=== PATIENT | female | born 1940 | race American Indian/Alaskan Native ===

== ENCOUNTER 2021-04-20 14:30 | Inpatient (IN) | payer MEDICARE ==
--- NOTE | 2021-04-20 17:19 | Emergency Department Report ---
HPI - General Chief Complaint: Altered Mental Status Time Seen by Provider: 04/20/21 16:55 - HPI HPI: Room 4 The patient is a 80-year-old female present with a chief complaint of altered mental status. The patient is a resident at [facility] and per EMS at baseline is ambulatory and alert and oriented x4. Patient was found unresponsive by staff. The patient does not have a history of diabetes per the medical record but with EMS the patient's glucose was found to be high. The patient only moans and localizes to sternal rub but does not answer questions. ED Past Medical Hx - Past Medical History Previous Medical History?: Yes Hx GERD: Yes Hx Psychiatric Treatment: Yes (Schitzophrenia, dementia) Additional medical history: Hypothroid, hyperlipidemia - Surgical History Past Surgical History?: No - Family History Family history: no significant - Social History Smoking Status: Unknown if ever smoked ED Review of Systems ROS: Stated complaint: AMS Other details as noted in HPI Comment: Unobtainable due to pts medical conditions (Patient unresponsive) Physical Exam - Physical Exam Vital Signs: Vital Signs 04/20/21 14:31 Pulse Rate 85 Respiratory 19 Rate Blood Pressure 107/35 [Left] O2 Sat by Pulse 94 Oximetry Physical Exam: GENERAL: The patient is well-developed well-nourished female sleeping on stretcher only localizing to tactile stimuli. [] HEENT: Normocephalic. Atraumatic. Pupils 3 mm bilaterally NECK: Supple. Trachea midline CHEST/LUNGS: Clear to auscultation. There is no respiratory distress noted. HEART/CARDIOVASCULAR: Regular. There is no tachycardia. There is no gallop rub or murmur. ABDOMEN: Abdomen is soft, nontender. Patient has normal bowel sounds. There is no abdominal distention. SKIN: There is no rash. There is no edema. There is no diaphoresis. NEURO: The patient is obtunded and only localizes to sternal rub . . ... MUSCULOSKELETAL: There is no tenderness or deformity. There is no limitation range of motion. There is no evidence of acute injury. ED Course Vital Signs 04/20/21 14:31 Pulse Rate 85 Respiratory 19 Rate Blood Pressure 107/35 [Left] O2 Sat by Pulse 94 Oximetry ED Medical Decision Making - Lab Data Result diagrams: 04/20/21 17:10 04/20/21 17:10 Laboratory Tests 1204/20/21 04/20/21 17:10 17:10 17:10 WBC 17.4 H RBC 5.19 H Hgb 14.0 Hct 46.8 H MCV 90 MCH 27 L MCHC 30 RDW 17.2 H Plt Count 140 Seg Neutrophils % Pulp Tester VBG pH Sodium 173 H* Potassium 3.7 Chloride 132.9 H Carbon Dioxide 17 L Anion Gap 27 BUN 120 H Creatinine 4.2 H Estimated GFR 12 BUN/Creatinine Ratio 29 Glucose 762 H* Lactic Acid Calcium 9.1 Magnesium 3.80 H Total Bilirubin 0.60 AST 72 H ALT 63 H Alkaline Phosphatase 148 H Ammonia Total Creatine Kinase 3697 H CK-MB (CK-2) 36.0 H CK-MB (CK-2) Rel Index 0.9 Troponin T 0.021 Total Protein 7.2 Albumin 2.2 L Albumin/Globulin Ratio 0.4 TSH Free T4 Urine Bilirubin Urine RBC (Auto) Plasma/Serum Alcohol 04/20/21 04/20/21 04/20/21 17:10 17:10 17:10 WBC RBC Hgb Hct MCV MCH MCHC RDW Plt Count Seg Neutrophils % VBG pH Sodium Potassium Chloride Carbon Dioxide Anion Gap BUN Creatinine Estimated GFR BUN/Creatinine Ratio Glucose Lactic Acid Calcium Magnesium Total Bilirubin AST ALT Alkaline Phosphatase Ammonia 29.0 Total Creatine Kinase CK-MB (CK-2) CK-MB (CK-2) Rel Index Troponin T Total Protein Albumin Albumin/Globulin Ratio TSH 6.040 H Free T4 0.93 Urine Bilirubin Urine RBC (Auto) Plasma/Serum Alcohol < 0.01 04/20/21 04/20/21 04/20/21 17:10 17:10 Unknown WBC RBC Hgb Hct MCV MCH MCHC RDW Plt Count Seg Neutrophils % VBG pH 7.397 Sodium Potassium Chloride Carbon Dioxide Anion Gap BUN Creatinine Estimated GFR BUN/Creatinine Ratio Glucose Lactic Acid 2.60 H* Calcium Magnesium Total Bilirubin AST ALT Alkaline Phosphatase Ammonia Total Creatine Kinase CK-MB (CK-2) CK-MB (CK-2) Rel Index Troponin T Total Protein Albumin Albumin/Globulin Ratio TSH Free T4 Urine Bilirubin Neg Urine RBC (Auto) 1.0 Plasma/Serum Alcohol - EKG Data -: EKG Interpreted by Me EKG shows normal: sinus rhythm Rate: normal - EKG Data When compared to previous EKG there are: previous EKG unavailable Interpretation: nonspecific ST-T wave tavon (T wave inversions in leads V3, V4) - Radiology Data Radiology results: report reviewed (Chest x-ray, CT head), image reviewed (Chest x-ray, CT head) interpreted by me: Chest x-ray-no definite focal infiltrates, no pneumothorax [address] [address] XRay Report Signed Patient: SHIELA FOUNTAIN MR#: [id number] : 1940 Acct:[id number] Age/Sex: 80 / F ADM Date: 04/20/21 Loc: ED Attending Dr: Ordering Physician: SOHAIL POWERS MD Date of Service: 04/20/21 Procedure(s): XR chest 1V ap Accession Number(s): [id number] cc: SOHAIL POWERS MD Fluoro Time In Minutes: CHEST 1 VIEW 04/20/2021 5:15 PM INDICATION / CLINICAL INFORMATION: Altered mental status. COMPARISON: None available. FINDINGS: SUPPORT DEVICES: None. HEART / MEDIASTINUM: The heart size and pulmonary vasculature are normal. LUNGS / PLEURA: There is increased opacity in the left retrocardiac region with mild indistinctness of the left hemidiaphragm. There are calcified left hilar and AP window lymph nodes. The right lung is clear. No significant pleural effusion. No pneumothorax. ADDITIONAL FINDINGS: No significant additional findings. IMPRESSION: Left lower lobe atelectasis or pneumonia. Signer Name: Harjinder Brooks MD Signed: 04/20/2021 5:45 PM Workstation Name: [id number] Transcribed By: RT Dictated By: Harjinder Brooks MD Electronically Authenticated By: Harjinder Brooks MD Signed Date/Time: 04/20/211744 DD/ 43 TD/TT: Print Cancel [address] [address] Cat Scan Report Signed Patient: SHIELA FOUNTAIN MR#: [id number] : 1940 Acct:[id number] Age/Sex: 80 / F ADM Date: 04/20/21 Loc: ED Attending Dr: Ordering Physician: SOHAIL POWERS MD Date of Service: 04/20/21 Procedure(s): CT head/brain wo con Accession Number(s): [id number] cc: SOHAIL POWERS MD NONENHANCED CT SCAN OF THE HEAD: INDICATION / CLINICAL INFORMATION: 80 years Female; Altered mental status. TECHNIQUE: Routine CT head without contrast. All CT scans at this location are performed using CT dose reduction for ALARA by means of aut omated exposure control. COMPARISON: None. FINDINGS: BRAIN / INTRACRANIAL CONTENTS: Lateral ventricles and third ventricle are disproportionately large compared to high convexity cortical sulci. Perisylvian atrophy is seen more on the right side. Cortical sulci in the vertex are effaced. Callosal triangle at the level of posterior commissures is 60 degrees. Periventricular low- attenuation areas seen. This could be due to chronic small vessel disease or transependymal. CSF. CT findings suggest the possibility of normal pressure hydrocephalus. No acute hemorrhage, mass effect, midline shift, or acute, large territorial infarct. No chronic infarct or focal atrophy. CRANIOCERVICAL JUNCTION: No significant abnormality. ORBITS: No significant abnormality of visualized orbits. SINUSES / MASTOIDS: No significant abnormality of the visualized paranasal sinuses or mastoid air cells. ADDITIONAL FINDINGS: None. IMPRESSION: Lateral ventricles and third ventricle are dilated; CT findings raises the possibility of normal pressure hydrocephalus Signer Name: Blayne Mccullough MD Signed: 04/20/2021 5:53 PM Workstation Name: [id number] Transcribed By: BS Dictated By: Blayne Chew MD Electronically Authenticated By: Blayne Chew MD Signed Date/Time: 04/20/211752 DD/ 41 TD/TT: Print Cancel - Differential Diagnosis Sepsis, ICH, pneumonia, UTI, dehydration, hypothyroidism Critical care attestation.: If time is entered above; I have spent that time in minutes in the direct care of this critically ill patient, excluding procedure time. ED Disposition Clinical Impression: Altered mental state, Hypernatremia, Dehydration, Rhabdomyolysis, Acute renal failure Disposition: ADMITTED INPATIENT Is pt being admited?: Yes Does the pt Need Aspirin: No Condition: Stable Referrals: PRIMARY CARE, [Primary Care Provider] - 3-5 Days Time of Disposition: 19:15 (Hospitalist called (Dr. Brenner))
[2021-04-20] MEDS ORDERED: SODIUM CHLORIDE 0.9% 1000 ML 1,000 ML IV ONE (17:47)
[2021-04-20 17:49] LABS: Albumin 2.2 g/dL (3.9-5); Calcium 9.1 mg/dL (8.4-10.2)
--- NOTE | 2021-04-20 17:49 | XRay Report ---
CHEST 1 VIEW 04/20/2021 5:15 PM INDICATION / CLINICAL INFORMATION: Altered mental status. COMPARISON: None available. FINDINGS: SUPPORT DEVICES: None. HEART / MEDIASTINUM: The heart size and pulmonary vasculature are normal. LUNGS / PLEURA: There is increased opacity in the left retrocardiac region with mild indistinctness o f the left hemidiaphragm. There are calcified left hilar and AP window lymph nodes. The right lung is clear. No significant pleural effusion. No pneumothorax. ADDITIONAL FINDINGS: No significant additional findings. IMPRESSION: Left lower lobe atelectasis or pneumonia. Signer Name: Harjinder Brooks MD Signed: 04/20/2021 5:45 PM Workstation Name: [id number]
--- NOTE | 2021-04-20 17:58 | Cat Scan Report ---
NONENHANCED CT SCAN OF THE HEAD: INDICATION / CLINICAL INFORMATION: 80 years Female; Altered mental status. TECHNIQUE: Routine CT head without contrast. All CT scans at this location are performed using CT dos e reduction for ALARA by means of automated exposure control. COMPARISON: None. FINDINGS: BRAIN / INTRACRANIAL CONTENTS: Lateral ventricles and third ventricle are disproportionately large compared to high convexity cortic al sulci. Perisylvian atrophy is seen more on the right side. Cortical sulci in the vertex are efface d. Callosal triangle at the level of posterior commissures is 60 degrees. Periventricular low-attenuation areas seen. This could be due to chronic small vessel disease or harper sependymal. CSF. CT findings suggest the possibility of normal pressure hydrocephalus. No acute hemorrhage, mass effect, midline shift, or acute, large territorial infarct. No chronic infa rct or focal atrophy. CRANIOCERVICAL JUNCTION: No significant abnormality. ORBITS: No significant abnormality of visualized orbits. SINUSES / MASTOIDS: No significant abnormality of the visualized paranasal sinuses or mastoid air hermila ls. ADDITIONAL FINDINGS: None. IMPRESSION: Lateral ventricles and third ventricle are dilated; CT findings raises the possibility of normal pres sure hydrocephalus Signer Name: Blayne Mccullough MD Signed: 04/20/2021 5:53 PM Workstation Name: [id number]
[2021-04-20 17:59] LABS: Free T4 (Free Thyroxine) 0.93 ng/dL (0.76-1.46)
[2021-04-20 18:00] LABS: Mean Corpuscular HGB Conc 30 % (30-34); Mean Corpuscular Volume 90 fl (79-97); Platelet Count 140 K/mm3 (140-440); Red Blood Count 5.19 M/mm3 (3.65-5.03); Red Cell Distribution Width 17.2 % (13.2-15.2)
[2021-04-20] MEDS ORDERED: DEXTROSE 5% IN WATER 1,000 ML IV ONE (18:01)
[2021-04-20 18:03] LABS: Hematocrit 46.8 % (30.3-42.9)
[2021-04-20 18:11] LABS: Bilirubin,Urine NEG (Negative); Blood,Urine MOD (Negative); Color,Urine Yellow (Yellow); Mucus,Urine FEW /HPF; Protein,Urine <15 mg/dL mg/dL (Negative); Urobilinogen,Urine < 2.0 mg/dL (<2.0)
[2021-04-20] MEDS ORDERED: INSULIN REGULAR, HUMAN 100 UNITS/1 ML IV ONE (19:14)
[2021-04-20 21:09] LABS: Total Cells Counted 100
[2021-04-20 21:12] LABS: Burr Cells Rare; Platelet Estimate Consistent w Auto; Target Cells Rare
[2021-04-20] MEDS ORDERED: ONDANSETRON 4 MG/2 ML INJ IV PRN (21:31)
[2021-04-20] MEDS ORDERED: METOCLOPRAMIDE 10 MG/2 ML INJ IV PRN (21:31)
[2021-04-20] MEDS ORDERED: DEXTROSE 50% IN WATER (25GM) 50 ML SYRINGE IV PRN (21:46)
[2021-04-20] MEDS ORDERED: SODIUM CHLORIDE 0.45% 500 ML IV SCH (22:00)
[2021-04-20] MEDS ORDERED: SODIUM CHLORIDE 0.45% 1000 ML 1,000 ML IV SCH (22:00)
[2021-04-20] MEDS: INSULIN REGULAR, HUMAN 100 UNITS in SODIUM CHLORIDE 0.9% 99 ML IV SCH (22:35)
[2021-04-20 23:55] LABS: Calcium 8.3 mg/dL (8.4-10.2)
[2021-04-21] MEDS: HEPARIN 5,000 UNIT/1 ML VIAL SUB-Q SCH ×3 (00:34→23:19)
[2021-04-21] MEDS ORDERED: LACTATED RINGERS 1,000 ML IV SCH ×2 (00:45→08:15)
[2021-04-21 00:59] LABS: Calcium 8.6 mg/dL (8.4-10.2)
[2021-04-21 02:30] LABS: Calcium 8.7 mg/dL (8.4-10.2)
[2021-04-21] MEDS: POTASSIUM CHLORIDE 10 MEQ 10 MEQ/100 ML BAG IV SCH ×7 (02:32→16:22)
[2021-04-21] MEDS ORDERED: INSULIN GLARGINE 100 UNITS/ML SUB-Q ONE (02:45)
[2021-04-21] MEDS ORDERED: FUROSEMIDE 40 MG/4 ML INJ IV ONE (02:56)
[2021-04-21 03:29] LABS: ABG Base Excess -2.9 mmol/L (-2.0-3.0); ABG HCO3 22.1 mmol/L (20.0-26.0); ABG Methemoglobin 0.7 % (0.0-1.5); ABG Oxygen Saturation 84.5 % (95.0-99.0); ABG PCO2 39.3 mm Hg; ABG PH 7.368 pH Units (7.350-7.450); ABG PO2 52.3 mm Hg (80.0-90.0)
[2021-04-21 05:18] LABS: Mean Corpuscular HGB Conc 31 % (30-34); Mean Corpuscular Volume 87 fl (79-97); Platelet Count 114 K/mm3 (140-440); Red Blood Count 4.83 M/mm3 (3.65-5.03); Red Cell Distribution Width 16.8 % (13.2-15.2)
[2021-04-21 05:22] LABS: Hematocrit 42.1 % (30.3-42.9)
[2021-04-21 05:25] LABS: Albumin 2.5 g/dL (3.9-5)
[2021-04-21 06:32] LABS: Total Cells Counted 100
[2021-04-21 06:33] LABS: Burr Cells Few; Platelet Estimate Consistent w Auto
--- NOTE | 2021-04-21 07:38 | History and Physical Report ---
History of Present Illness Date of examination: 04/20/21 Date of admission: 04/20/21 19:17 Chief complaint: Patient with [place] for 1 day Decreased responsiveness for 1 day History of present illness: 40-year-old -[place] female with history of GERD, hypothyroidism hyper, hyperlipidemia and schizophrenia and dementia, resident of [facility] e is apparently ambulatory alert and oriented x4. Last night. Patient was found unresponsive by the staff and was sent to the emergency room for evaluation. As per EMS blood glucose levels were high. Patient response to sternal rub but does not wake up or answer questions. Moans and groans with sternal rub. No fever or chills. Vaccination status not known. - Past Medical History --Previous Medical History?: Yes --GERD: Yes --Psychiatric Treatment: Yes (Schitzophrenia, dementia) --Additional medical history: Hypothroid, hyperlipidemia - Surgical History Past Surgical History?: No - Family History Family history: no significant - Social History Smoking Status: Unknown if ever smoked Review of Systems ROS: Stated complaint: AMS Other details as noted in HPI Comment: Unobtainable due to pts medical conditions (Patient unresponsive) Medications and Allergies Allergies Allergy/AdvReac Type Severity Reaction Status Date / Time No Known Allergies Allergy Unverified 04/20/21 14:35 Active Meds: Active Medications Acetaminophen (Acetaminophen 325 Mg Tab) 650 mg PO Q4H PRN PRN Reason: Pain MILD(1-3)/Fever >100.5/TURCIOS Dextrose (Dextrose 50% In Water (25gm) 50 Ml Syringe) 0 ml IV Q30MIN PRN; Protocol PRN Reason: Hypoglycemia Heparin Sodium (Porcine) (Heparin 5,000 Unit/1 Ml Vial) 5,000 unit SUB-Q Q12HR AZIZA Last Admin: 04/21/21 00:34 Dose: 5,000 unit Documented by: Insulin Human Regular 100 (units/ Sodium Chloride) 100 mls @ 1 mls/hr IV TITR AZIZA; Protocol Last Titration: 04/21/21 06:50 Dose: Infused Documented by: Lactated Ringer's (Lactated Ringers) 1,000 mls @ 175 mls/hr IV DIRECT AZIZA Last Admin: 04/21/21 01:25 Dose: 175 mls/hr Documented by: Dextrose (D5w) 1,000 mls @ 75 mls/hr IV DIRECT AZIZA Metoclopramide HCl (Metoclopramide 10 Mg/2 Ml Inj) 5 mg IV Q6H PRN PRN Reason: Nausea And Vomiting Morphine Sulfate (Morphine 2 Mg/1 Ml Inj) 2 mg IV Q4H PRN PRN Reason: Pain, Moderate (4-6) Ondansetron HCl (Ondansetron 4 Mg/2 Ml Inj) 4 mg IV Q8H PRN PRN Reason: Nausea And Vomiting Sodium Chloride (Sodium Chloride 0.9% 10 Ml Flush Syringe) 10 ml IV BID AZIZA Last Admin: 04/20/21 22:46 Dose: 10 ml Documented by: Sodium Chloride (Sodium Chloride 0.9% 10 Ml Flush Syringe) 10 ml IV PRN PRN PRN Reason: LINE FLUSH Exam - Physical Exam Narrative exam: Lying in bed unresponsive - Constitutional Vitals: Temp Pulse Resp BP Pulse Ox 91.5 F L 71 25 H 103/57 94 04/21/21 06:20 04/21/21 07:15 04/21/21 07:15 04/21/21 07:15 04/21/21 07:15 General appearance: Present: no acute distress, other (Lying in bed unresponsive) - EENT Eyes: Present: PERRL ENT: hearing intact, other (Tongue very dry.) - Neck Neck: Present: supple, normal ROM - Respiratory Respiratory effort: normal Respiratory: bilateral: CTA - Cardiovascular Heart rate: 78 Rhythm: regular Heart Sounds: Present: S1 & S2. Absent: rub, click - Extremities Extremities: no ischemia, pulses intact, pulses symmetrical, No edema Peripheral Pulses: within normal limits - Abdominal General gastrointestinal: Present: soft, non-tender, non-distended, normal bowel sounds Female genitourinary: Present: normal - Integumentary Integumentary: Present: clear, warm, dry - Musculoskeletal Musculoskeletal: generalized weakness - Psychiatric Psychiatric: other (Decreased responsiveness) - Neurologic Neurologic: moves all extremities, other (Decreased responsiveness) - Allied Health Allied health notes reviewed: nursing, case management HEART Score - HEART Score Troponin: Troponin T 0.021 ng/mL (0.00-0.029) 04/20/21 17:10 Results - Labs CBC & Chem 7: 04/21/21 03:41 04/21/21 03:41 Labs: Laboratory Last Values WBC 14.1 K/mm3 (4.5-11.0) H 04/21/21 03:41 RBC 4.83 M/mm3 (3.65-5.03) 04/21/21 03:41 Hgb 13.0 gm/dl (10.1-14.3) 04/21/21 03:41 Hct 42.1 % (30.3-42.9) 04/21/21 03:41 MCV 87 fl (79-97) 04/21/21 03:41 MCH 27 pg (28-32) L 04/21/21 03:41 MCHC 31 % (30-34) 04/21/21 03:41 RDW 16.8 % (13.2-15.2) H 04/21/21 03:41 Plt Count 114 K/mm3 (140-440) L 04/21/21 03:41 Add Manual Diff Complete 04/21/21 03:41 Total Counted 100 04/21/21 03:41 Seg Neutrophils % Abatement Worker 04/21/21 03:41 Seg Neuts % (Manual) 97.0 % (40.0-70.0) H 04/21/21 03:41 Lymphocytes % (Manual) 3.0 % (13.4-35.0) L 04/21/21 03:41 Nucleated RBC % 1.0 % (0.0-0.9) H 04/21/21 03:41 Seg Neutrophils # Man 13.7 K/mm3 (1.8-7.7) H 04/21/21 03:41 Band Neutrophils # 0.0 K/mm3 04/21/21 03:41 Lymphocytes # (Manual) 0.4 K/mm3 (1.2-5.4) L 04/21/21 03:41 Abs React Lymphs (Man) 0.0 K/mm3 04/21/21 03:41 Monocytes # (Manual) 0.0 K/mm3 (0.0-0.8) 04/21/21 03:41 Eosinophils # (Manual) 0.0 K/mm3 (0.0-0.4) 04/21/21 03:41 Basophils # (Manual) 0.0 K/mm3 (0.0-0.1) 04/21/21 03:41 Metamyelocytes # 0.0 K/mm3 04/21/21 03:41 Myelocytes # 0.0 K/mm3 04/21/21 03:41 Promyelocytes # 0.0 K/mm3 04/21/21 03:41 Blast Cells # 0.0 K/mm3 04/21/21 03:41 WBC Morphology Not Reportable 04/21/21 03:41 Hypersegmented Neuts Not Reportable 04/21/21 03:41 Hyposegmented Neuts Not Reportable 04/21/21 03:41 Hypogranular Neuts Not Reportable 04/21/21 03:41 Smudge Cells Not Reportable 04/21/21 03:41 Toxic Granulation Not Reportable 04/21/21 03:41 Toxic Vacuolation Not Reportable 04/21/21 03:41 Dohle Bodies Not Reportable 04/21/21 03:41 Pelger-Huet Anomaly Not Reportable 04/21/21 03:41 Moni Rods Not Reportable 04/21/21 03:41 Platelet Estimate Consistent w auto 04/21/21 03:41 Clumped Platelets Not Reportable 04/21/21 03:41 Plt Clumps, EDTA Not Reportable 04/21/21 03:41 Large Platelets Not Reportable 04/21/21 03:41 Giant Platelets Not Reportable 04/21/21 03:41 Platelet Satelliting Not Reportable 04/21/21 03:41 Plt Morphology Comment Not Reportable 04/21/21 03:41 RBC Morphology Not Reportable 04/21/21 03:41 Dimorphic RBCs Not Reportable 04/21/21 03:41 Polychromasia Not Reportable 04/21/21 03:41 Hypochromasia Not Reportable 04/21/21 03:41 Poikilocytosis Not Reportable 04/21/21 03:41 Anisocytosis Not Reportable 04/21/21 03:41 Microcytosis Not Reportable 04/21/21 03:41 Macrocytosis Not Reportable 04/21/21 03:41 Spherocytes Not Reportable 04/21/21 03:41 Pappenheimer Bodies Not Reportable 04/21/21 03:41 Sickle Cells Not Reportable 04/21/21 03:41 Target Cells Not Reportable 04/21/21 03:41 Tear Drop Cells Not Reportable 04/21/21 03:41 Ovalocytes Not Reportable 04/21/21 03:41 Helmet Cells Not Reportable 04/21/21 03:41 Parkinson-Slater-[place] Bodies Not Reportable 04/21/21 03:41 [place] Rings Not Reportable 04/21/21 03:41 [place] Cells Few 04/21/21 03:41 Bite Cells Not Reportable 04/21/21 03:41 Crenated Cell Not Reportable 04/21/21 03:41 Elliptocytes Not Reportable 04/21/21 03:41 Acanthocytes (Spur) Not Reportable 04/21/21 03:41 Rouleaux Not Reportable 04/21/21 03:41 Hemoglobin C Crystals Not Reportable 04/21/21 03:41 Schistocytes Not Reportable 04/21/21 03:41 Malaria parasites Not Reportable 04/21/21 03:41 Herrera Bodies Not Reportable 04/21/21 03:41 Hem Pathologist Commnt No 04/21/21 03:41 ABG pH 7.368 pH Units (7.350-7.450) 04/21/21 03:20 ABG pCO2 39.3 mm Hg 04/21/21 03:20 ABG pO2 52.3 mm Hg (80.0-90.0) L 04/21/21 03:20 ABG HCO3 22.1 mmol/L (20.0-26.0) 04/21/21 03:20 ABG O2 Saturation 84.5 % (95.0-99.0) L 04/21/21 03:20 ABG O2 Content 15.0 (0.0-44) 04/21/21 03:20 ABG Base Excess -2.9 mmol/L (-2.0-3.0) L 04/21/21 03:20 ABG Hemoglobin 12.9 gm/dl (12.0-16.0) 04/21/21 03:20 ABG Carboxyhemoglobin 1.3 % (0.0-5.0) 04/21/21 03:20 ABG Methemoglobin 0.7 % (0.0-1.5) 04/21/21 03:20 VBG pH 7.397 (7.320-7.420) 04/20/21 17:10 Oxyhemoglobin 82.9 % (95.0-99.0) L 04/21/21 03:20 FiO2 100 % 04/21/21 03:20 Sodium 179 mmol/L (137-145) H* 04/21/21 03:41 Potassium 2.9 mmol/L (3.6-5.0) L* 04/21/21 03:41 Chloride 138.2 mmol/L (98-107) H 04/21/21 03:41 Carbon Dioxide 20 mmol/L (22-30) L 04/21/21 03:41 Anion Gap 21 mmol/L 04/21/21 03:41 BUN 111 mg/dL (7-17) H 04/21/21 03:41 Creatinine 3.7 mg/dL (0.6-1.2) H 04/21/21 03:41 Estimated GFR 14 ml/min 04/21/21 03:41 BUN/Creatinine Ratio 30 % 04/21/21 03:41 Glucose 465 mg/dL (65-100) H 04/21/21 03:41 POC Glucose 260 mg/dL (70-105) H 04/21/21 06:47 Lactic Acid 1.90 mmol/L (0.7-2.0) 04/20/21 19:56 Calcium 9.0 mg/dL (8.4-10.2) 04/21/21 03:41 Phosphorus 3.90 mg/dL (2.5-4.5) 04/20/21 22:58 Magnesium 3.50 mg/dL (1.7-2.3) H 04/20/21 22:58 Total Bilirubin 0.40 mg/dL (0.1-1.2) 04/21/21 03:41 AST 73 units/L (5-40) H 04/21/21 03:41 ALT 61 units/L (7-56) H 04/21/21 03:41 Alkaline Phosphatase 144 units/L (35-129) H 04/21/21 03:41 Ammonia 29.0 umol/L (25-60) 04/20/21 17:10 Total Creatine Kinase 3697 units/L (30-135) H 04/20/21 17:10 CK-MB (CK-2) 36.0 ng/mL (0.0-4.0) H 04/20/21 17:10 CK-MB (CK-2) Rel Index 0.9 (0-4) 04/20/21 17:10 Troponin T 0.021 ng/mL (0.00-0.029) 04/20/21 17:10 Total Protein 6.3 g/dL (6.3-8.2) 04/21/21 03:41 Albumin 2.5 g/dL (3.9-5) L 04/21/21 03:41 Albumin/Globulin Ratio 0.7 % 04/21/21 03:41 TSH 6.040 mlU/mL (0.270-4.200) H 04/20/21 17:10 Free T4 0.93 ng/dL (0.76-1.46) 04/20/21 17:10 Urine Color Yellow (Yellow) 04/20/21 Unknown Urine Turbidity Slightly-cloudy (Clear) 04/20/21 Unknown Urine pH 5.0 (5.0-7.0) 04/20/21 Unknown Ur Specific [place] 1.016 (1.003-1.030) 04/20/21 Unknown Urine Protein <15 mg/dl mg/dL (Negative) 04/20/21 Unknown Urine Glucose (UA) >=500 mg/dL (Negative) 04/20/21 Unknown Urine Ketones Tr mg/dL (Negative) 04/20/21 Unknown Urine Blood Mod (Negative) 04/20/21 Unknown Urine Nitrite Neg (Negative) 04/20/21 Unknown Urine Bilirubin Neg (Negative) 04/20/21 Unknown Urine Urobilinogen < 2.0 mg/dL (<2.0) 04/20/21 Unknown Ur Leukocyte Esterase Neg (Negative) 04/20/21 Unknown Urine WBC (Auto) 3.0 /HPF (0.0-6.0) 04/20/21 Unknown Urine RBC (Auto) 1.0 /HPF (0.0-6.0) 04/20/21 Unknown Urine Mucus Few /HPF 04/20/21 Unknown Plasma/Serum Alcohol < 0.01 % (0-0.07) 04/20/21 17:10 Short CBC 04/20/21 04/21/21 Range/Units 17:10 03:41 WBC 17.4 H 14.1 H (4.5-11.0) K/mm3 Hgb 14.0 13.0 (10.1-14.3) gm/dl Hct 46.8 H 42.1 (30.3-42.9) % Plt Count 140 114 L (140-440) K/mm3 BMP 04/20/21 04/20/21 04/21/21 17:10 22:58 00:22 Sodium 173 H* 172 H* 176 H* Potassium 3.7 3.2 L 2.9 L* Chloride 132.9 H 134.2 H 139.9 H Carbon Dioxide 17 L 17 L 17 L BUN 120 H 112 H 113 H Creatinine 4.2 H 3.8 H 3.9 H Glucose 762 H* 803 H* 729 H* Calcium 9.1 8.3 L 8.6 04/21/21 04/21/21 02:01 03:41 Sodium 175 H* 179 H* Potassium 3.0 L 2.9 L* Chloride 136.2 H 138.2 H Carbon Dioxide 19 L 20 L BUN 112 H 111 H Creatinine 3.6 H 3.7 H Glucose 582 H* 465 H Calcium 8.7 9.0 Cardiac Enzymes 04/20/21 Range/Units 17:10 Total Creatine Kinase 3697 H (30-135) units/L CK-MB (CK-2) 36.0 H (0.0-4.0) ng/mL Troponin T 0.021 (0.00-0.029) ng/mL Liver Function 04/20/21 04/21/21 Range/Units 17:10 03:41 Total Bilirubin 0.60 0.40 (0.1-1.2) mg/dL AST 72 H 73 H (5-40) units/L ALT 63 H 61 H (7-56) units/L Alkaline Phosphatase 148 H 144 H (35-129) units/L Albumin 2.2 L 2.5 L (3.9-5) g/dL Urine 04/20/21 Range/Units Unknown Urine Color Yellow (Yellow) Urine pH 5.0 (5.0-7.0) Ur Specific [place] 1.016 (1.003-1.030) Urine Protein <15 mg/dl (Negative) mg/dL Urine Glucose (UA) >=500 (Negative) mg/dL Assessment and Plan Assessment and plan: Critical care statement The high probability OF a clinically significant sudden or life-threatening deterioration of the cardiorespiratory system and endocrine system required my full and direct attention, intervention and postoperative management. The aggr egate medical care time was 40 minutes. The time is in addition to time spent performing reported procedures but includes the followin: Data review and interpretation 2: Patient assessment and monitoring of vital signs 3: Documentation 4:: Medication orders and management Advance Directives: Yes (Full code) VTE prophylaxis?: Chemical Plan of care discussed with patient/family: Yes - Patient Problems (1) Acute metabolic encephalopathy Current Visit: Yes Status: Acute Plan to address problem: Secondary to severe hyperglycemia and electrolyte derangements (2) Diabetic hyperosmolar non-ketotic state Current Visit: Yes Status: Acute Plan to address problem: IV insulin drip IV half-normal saline Monitor electrolytes closely Patient does not have history of diabetes Patient blood glucose levels were around 762 Treat as hyperosmolar nonketotic state and diabetes with coma (3) SYED (acute kidney injury) Current Visit: Yes Status: Acute Plan to address problem: Secondary to ATN and volume depletion IV fluids for now Nephrology consulted (4) Dehydration Current Visit: Yes Status: Acute Plan to address problem: Patient is fluid depleted IV half-normal saline for now (5) Hypernatremia Current Visit: Yes Status: Acute Plan to address problem: Severe hypernatremia Half-normal saline for now next monitor blood glucose levels stabilized D5W to bring the sodium down We will defer to nephrology also (6) Rhabdomyolysis Current Visit: Yes Status: Acute Qualifiers: Rhabdomyolysis type: non-traumatic Qualified Code(s): M62.82 - Rhabdomyolysis Plan to address problem: IV fluids and monitor CK levels (7) Hypernatremia Current Visit: Yes Status: Acute (8) GERD (gastroesophageal reflux disease) Current Visit: Yes Status: Chronic Qualifiers: Esophagitis presence: without esophagitis Qualified Code(s): K21.9 - Gastro-esophageal reflux disease without esophagitis Plan to address problem: On IV famotidine (9) Metabolic acidosis Current Visit: Yes Status: Acute Plan to address problem: Treat hypoglycemia and electrolyte abnormalities (10) Leukocytosis Current Visit: Yes Status: Acute Plan to address problem: Empiric Rocephin for now (11) DVT prophylaxis Current Visit: Yes Status: Acute Plan to address problem: GI prophylaxis
--- NOTE | 2021-04-21 08:06 | Consultation ---
History of Present Illness - Reason for Consult Consult date: 04/21/21 acute renal failure - History of Present Illness 80-year-old -[place] female with history of GERD, hypothyroidism hyper, hyperlipidemia and schizophrenia and dementia, resident of [facility] was admitted after she was was found unresponsive by the staff. she was found to have DKA and started on insulin drip, she was also found to have severe hypernatremia with SYED and renal consult was requested Past History Past Medical History: other (Dementia, GERD) Medications and Allergies Allergies Allergy/AdvReac Type Severity Reaction Status Date / Time No Known Allergies Allergy Unverified 04/20/21 14:35 Active Meds: Active Medications Acetaminophen (Acetaminophen 325 Mg Tab) 650 mg PO Q4H PRN PRN Reason: Pain MILD(1-3)/Fever >100.5/TURCIOS Dextrose (Dextrose 50% In Water (25gm) 50 Ml Syringe) 0 ml IV Q30MIN PRN; Protocol PRN Reason: Hypoglycemia Heparin Sodium (Porcine) (Heparin 5,000 Unit/1 Ml Vial) 5,000 unit SUB-Q Q12HR AZIZA Last Admin: 04/21/21 00:34 Dose: 5,000 unit Documented by: Insulin Human Regular 100 (units/ Sodium Chloride) 100 mls @ 1 mls/hr IV TITR AZIZA; Protocol Last Titration: 04/21/21 06:50 Dose: Infused Documented by: Dextrose (D5w) 1,000 mls @ 125 mls/hr IV DIRECT AZIZA Potassium Chloride (Kcl 10meq/100ml) 10 meq in 100 mls @ 100 mls/hr IV Q1H AZIZA Stop: 04/21/21 12:59 Ceftriaxone Sodium (Rocephin/Ns 1 Gm/50 Ml) 1 gm in 50 mls @ 100 mls/hr IV Q24H AZIZA; Protocol Metoclopramide HCl (Metoclopramide 10 Mg/2 Ml Inj) 5 mg IV Q6H PRN PRN Reason: Nausea And Vomiting Morphine Sulfate (Morphine 2 Mg/1 Ml Inj) 2 mg IV Q4H PRN PRN Reason: Pain, Moderate (4-6) Ondansetron HCl (Ondansetron 4 Mg/2 Ml Inj) 4 mg IV Q8H PRN PRN Reason: Nausea And Vomiting Sodium Chloride (Sodium Chloride 0.9% 10 Ml Flush Syringe) 10 ml IV BID AZIZA Last Admin: 04/20/21 22:46 Dose: 10 ml Documented by: Sodium Chloride (Sodium Chloride 0.9% 10 Ml Flush Syringe) 10 ml IV PRN PRN PRN Reason: LINE FLUSH Review of Systems ROS unobtainable: due to mental status Exam - Vital Signs Vital signs: Vital Signs Pulse Resp BP Pulse Ox 85 19 107/35 94 04/20/21 14:31 04/20/21 14:31 04/20/21 14:31 04/20/21 14:31 - General Appearance General appearance: cachectic EENT: mucous membranes dry Neck: Present: neck supple Respiratory: Decreased Breath Sounds Heart: tachycardia Gastrointestinal: Present: normoactive bowel sounds. Absent: tenderness, distended, masses Integumentary: no rash, warm and dry Neurologic: other (does not follow commands) Musculoskeletal: Present: other (no edema in BLE) Results - Lab Results 04/21/21 03:41 04/21/21 03:41 Most recent lab results ABG pH 7.368 pH Units (7.350-7.450) 04/21/21 03:20 ABG pCO2 39.3 mm Hg 04/21/21 03:20 ABG pO2 52.3 mm Hg (80.0-90.0) L 04/21/21 03:20 ABG HCO3 22.1 mmol/L (20.0-26.0) 04/21/21 03:20 ABG O2 Saturation 84.5 % (95.0-99.0) L 04/21/21 03:20 Calcium 9.0 mg/dL (8.4-10.2) 04/21/21 03:41 Phosphorus 3.90 mg/dL (2.5-4.5) 04/20/21 22:58 Magnesium 3.50 mg/dL (1.7-2.3) H 04/20/21 22:58 Assessment and Plan (1) Acute metabolic encephalopathy (2) Diabetic hyperosmolar non-ketotic state 3) SYED (acute kidney injury) (4) Dehydration (5) Hypernatremia (6) Rhabdomyolysis (7) Hypernatremia 8) GERD (gastroesophageal reflux disease) (9) Metabolic acidosis (10) Leukocytosis No baseline Cr is available, kidney function is improving with IVF, for now due to severe hypernatremia, will increase D5W to 125 cc/h and give isotonic fluid as boluses, LR 1000 cc bolus ordered will check Na every 8 hours, avoid correction more than 10 mmol/l in 24 hoursNo indication for RUBBER ENGRAVER will check urine lytes and protein will check urine osm will cont to monitor CK renally dose meds Strict I&O daily weights Logan Zambrano MD [phone]
[2021-04-21] MEDS: INSULIN REGULAR, HUMAN 100 UNITS in SODIUM CHLORIDE 0.9% 99 ML IV SCH (09:15)
--- NOTE | 2021-04-21 09:39 | Electrocardiograph Report ---
[facility] Test Date: 2021-04-20 Test Time: 19:10:30 Pat Name: SHIELA FOUNTAIN Department: Room: A257 1 Gender: F Mirror Painter: BRENDEN : 1940 Requested By: SOHAIL POWERS Order Number: [id number] Reading MD: Rodolfo Cox Measurements Intervals [place] Rate: 82 P: 75 FL: 110 QRS: 65 QRSD: 58 T: 231 QT: 578 QTc: 676 Interpretive Statements Sinus rhythm Atrial premature complex Low voltage, precordial leads Nonspecific T abnormalities, diffuse leads Prolonged QT interval No previous ECG available for comparison Electronically Signed On 04-21-2021 9:39:06 EST by Rodolfo Cox
[2021-04-21] MEDS ORDERED: SODIUM CHLORIDE 0.9% 500 ML 500 ML ONE (10:51)
[2021-04-21] MEDS: cefTRIAXone/NS 1 GM/50 ML 1 GM/50 ML BAG IV SCH (10:55)
[2021-04-21] MEDS: DEXTROSE 5% IN WATER 1,000 ML IV SCH ×2 (10:55→18:24)
[2021-04-21] MEDS ORDERED: LACTATED RINGERS 1,000 ML ONE (11:38)
[2021-04-21 13:02] LABS: Creatinine,Urine 44.3 mg/dL (0.1-20.0)
--- NOTE | 2021-04-21 13:12 | Consultation ---
History of Present Illness - Reason for Consult Consult date: 04/21/21 - History of Present Illness 80 y/o female presents from [facility] with severe electrolyte imbalance, renal failure, hypoxemia and altered mental state. 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 Not sure if neurology or neurosurgery was consulted. Patient is awake but only moans. No able to speak or communicate at this time. Hypothermic as well. Retaining urine. Renal has seen and left recs. We placed foely. Checking repeat ABG and CXR. Past History Past Medical History: other (Dementia, GERD) Past Surgical History: Other (unable to obtain.) Social history: other (unable to obtain) Family history: other (unable to obtain) Medications and Allergies Allergies Allergy/AdvReac Type Severity Reaction Status Date / Time No Known Allergies Allergy Unverified 04/20/21 14:35 Active Meds: Active Medications Acetaminophen (Acetaminophen 325 Mg Tab) 650 mg PO Q4H PRN PRN Reason: Pain MILD(1-3)/Fever >100.5/TURCIOS Dextrose (Dextrose 50% In Water (25gm) 50 Ml Syringe) 0 ml IV Q30MIN PRN; P rotocol PRN Reason: Hypoglycemia Last Admin: 04/21/21 11:15 Dose: 15 ml Documented by: Heparin Sodium (Porcine) (Heparin 5,000 Unit/1 Ml Vial) 5,000 unit SUB-Q Q12HR AZIZA Last Admin: 04/21/21 10:55 Dose: 5,000 unit Documented by: Insulin Human Regular 100 (units/ Sodium Chloride) 100 mls @ 1 mls/hr IV TITR AZIZA; Protocol Last Titration: 04/21/21 06:50 Dose: Infused Documented by: Dextrose (D5w) 1,000 mls @ 125 mls/hr IV DIRECT AZIZA Last Admin: 04/21/21 10:55 Dose: 125 mls/hr Documented by: Ceftriaxone Sodium (Rocephin/Ns 1 Gm/50 Ml) 1 gm in 50 mls @ 100 mls/hr IV Q24H AZIZA; Protocol Last Admin: 04/21/21 10:55 Dose: 100 mls/hr Documented by: Metoclopramide HCl (Metoclopramide 10 Mg/2 Ml Inj) 5 mg IV Q6H PRN PRN Reason: Nausea And Vomiting Morphine Sulfate (Morphine 2 Mg/1 Ml Inj) 2 mg IV Q4H PRN PRN Reason: Pain, Moderate (4-6) Ondansetron HCl (Ondansetron 4 Mg/2 Ml Inj) 4 mg IV Q8H PRN PRN Reason: Nausea And Vomiting Sodium Chloride (Sodium Chloride 0.9% 10 Ml Flush Syringe) 10 ml IV BID AZIZA Last Admin: 04/21/21 10:56 Dose: 10 ml Documented by: Sodium Chloride (Sodium Chloride 0.9% 10 Ml Flush Syringe) 10 ml IV PRN PRN PRN Reason: LINE FLUSH Review of Systems ROS unobtainable: due to mental status Exam - Constitutional Vitals: Temp Pulse Resp BP Pulse Ox 91.5 F L 69 26 H 101/57 97 04/21/21 06:20 04/21/21 08:23 04/21/21 08:23 04/21/21 08:23 04/21/21 10:25 Results - Labs CBC & Chem 7: 04/21/21 03:41 04/21/21 03:41 Labs: Abnormal lab results 04/20/21 04/20/21 04/20/21 Range/Units 17:10 17:10 17:10 WBC 17.4 H (4.5-11.0) K/mm3 RBC 5.19 H (3.65-5.03) M/mm3 Hct 46.8 H (30.3-42.9) % MCH 27 L (28-32) pg RDW 17.2 H (13.2-15.2) % Plt Count (140-440) K/mm3 Seg Neuts % (Manual) 98.0 H (40.0-70.0) % Lymphocytes % (Manual) 2.0 L (13.4-35.0) % Nucleated RBC % 1.0 H (0.0-0.9) % Seg Neutrophils # Man 17.1 H (1.8-7.7) K/mm3 Lymphocytes # (Manual) 0.3 L (1.2-5.4) K/mm3 ABG pO2 (80.0-90.0) mm Hg ABG O2 Saturation (95.0-99.0) % ABG Base Excess (-2.0-3.0) mmol/L Oxyhemoglobin (95.0-99.0) % Sodium 173 H* (137-145) mmol/L Potassium (3.6-5.0) mmol/L Chloride 132.9 H (98-107) mmol/L Carbon Dioxide 17 L (22-30) mmol/L BUN 120 H (7-17) mg/dL Creatinine 4.2 H (0.6-1.2) mg/dL Glucose 762 H* (65-100) mg/dL POC Glucose (70-105) mg/dL Lactic Acid (0.7-2.0) mmol/L Calcium (8.4-10.2) mg/dL Magnesium 3.80 H (1.7-2.3) mg/dL AST 72 H (5-40) units/L ALT 63 H (7-56) units/L Alkaline Phosphatase 148 H (35-129) units/L Total Creatine Kinase 3697 H (30-135) units/L CK-MB (CK-2) 36.0 H (0.0-4.0) ng/mL Albumin 2.2 L (3.9-5) g/dL TSH (0.270-4.200) mlU/mL Urine Creatinine (0.1-20.0) mg/dL Urine Total Protein (5-11.8) mg/dL 04/20/21 04/20/21 04/20/21 Range/Units 17:10 17:10 18:55 WBC (4.5-11.0) K/mm3 RBC (3.65-5.03) M/mm3 Hct (30.3-42.9) % MCH (28-32) pg RDW (13.2-15.2) % Plt Count (140-440) K/mm3 Seg Neuts % (Manual) (40.0-70.0) % Lymphocytes % (Manual) (13.4-35.0) % Nucleated RBC % (0.0-0.9) % Seg Neutrophils # Man (1.8-7.7) K/mm3 Lymphocytes # (Manual) (1.2-5.4) K/mm3 ABG pO2 (80.0-90.0) mm Hg ABG O2 Saturation (95.0-99.0) % ABG Base Excess (-2.0-3.0) mmol/L Oxyhemoglobin (95.0-99.0) % Sodium (137-145) mmol/L Potassium (3.6-5.0) mmol/L Chloride (98-107) mmol/L Carbon Dioxide (22-30) mmol/L BUN (7-17) mg/dL Creatinine (0.6-1.2) mg/dL Glucose (65-100) mg/dL POC Glucose 574 H (70-105) mg/dL Lactic Acid 2.60 H* (0.7-2.0) mmol/L Calcium (8.4-10.2) mg/dL Magnesium (1.7-2.3) mg/dL AST (5-40) units/L ALT (7-56) units/L Alkaline Phosphatase (35-129) units/L Total Creatine Kinase (30-135) units/L CK-MB (CK-2) (0.0-4.0) ng/mL Albumin (3.9-5) g/dL TSH 6.040 H (0.270-4.200) mlU/mL Urine Creatinine (0.1-20.0) mg/dL Urine Total Protein (5-11.8) mg/dL 04/20/21 04/20/21 04/21/21 Range/Units 22:58 22:58 00:14 WBC (4.5-11.0) K/mm3 RBC (3.65-5.03) M/mm3 Hct (30.3-42.9) % MCH (28-32) pg RDW (13.2-15.2) % Plt Count (140-440) K/mm3 Seg Neuts % (Manual) (40.0-70.0) % Lymphocytes % (Manual) (13.4-35.0) % Nucleated RBC % (0.0-0.9) % Seg Neutrophils # Man (1.8-7.7) K/mm3 Lymphocytes # (Manual) (1.2-5.4) K/mm3 ABG pO2 (80.0-90.0) mm Hg ABG O2 Saturation (95.0-99.0) % ABG Base Excess (-2.0-3.0) mmol/L Oxyhemoglobin (95.0-99.0) % Sodium 172 H* (137-145) mmol/L Potassium 3.2 L (3.6-5.0) mmol/L Chloride 134.2 H (98-107) mmol/L Carbon Dioxide 17 L (22-30) mmol/L BUN 112 H (7-17) mg/dL Creatinine 3.8 H (0.6-1.2) mg/dL Glucose 803 H* (65-100) mg/dL POC Glucose > 600 H (70-105) mg/dL Lactic Acid (0.7-2.0) mmol/L Calcium 8.3 L (8.4-10.2) mg/dL Magnesium 3.50 H (1.7-2.3) mg/dL AST (5-40) units/L ALT (7-56) units/L Alkaline Phosphatase (35-129) units/L Total Creatine Kinase (30-135) units/L CK-MB (CK-2) (0.0-4.0) ng/mL Albumin (3.9-5) g/dL TSH (0.270-4.200) mlU/mL Urine Creatinine (0.1-20.0) mg/dL Urine Total Protein (5-11.8) mg/dL 04/21/21 04/21/21 04/21/21 Range/Units 00:22 02:01 03:11 WBC (4.5-11.0) K/mm3 RBC (3.65-5.03) M/mm3 Hct (30.3-42.9) % MCH (28-32) pg RDW (13.2-15.2) % Plt Count (140-440) K/mm3 Seg Neuts % (Manual) (40.0-70.0) % Lymphocytes % (Manual) (13.4-35.0) % Nucleated RBC % (0.0-0.9) % Seg Neutrophils # Man (1.8-7.7) K/mm3 Lymphocytes # (Manual) (1.2-5.4) K/mm3 ABG pO2 (80.0-90.0) mm Hg ABG O2 Saturation (95.0-99.0) % ABG Base Excess (-2.0-3.0) mmol/L Oxyhemoglobin (95.0-99.0) % Sodium 176 H* 175 H* (137-145) mmol/L Potassium 2.9 L* 3.0 L (3.6-5.0) mmol/L Chloride 139.9 H 136.2 H (98-107) mmol/L Carbon Dioxide 17 L 19 L (22-30) mmol/L BUN 113 H 112 H (7-17) mg/dL Creatinine 3.9 H 3.6 H (0.6-1.2) mg/dL Glucose 729 H* 582 H* (65-100) mg/dL POC Glucose 404 H (70-105) mg/dL Lactic Acid (0.7-2.0) mmol/L Calcium (8.4-10.2) mg/dL Magnesium (1.7-2.3) mg/dL AST (5-40) units/L ALT (7-56) units/L Alkaline Phosphatase (35-129) units/L Total Creatine Kinase (30-135) units/L CK-MB (CK-2) (0.0-4.0) ng/mL Albumin (3.9-5) g/dL TSH (0.270-4.200) mlU/mL Urine Creatinine (0.1-20.0) mg/dL Urine Total Protein (5-11.8) mg/dL 04/21/21 04/21/21 04/21/21 Range/Units 03:20 03:41 03:41 WBC 14.1 H (4.5-11.0) K/mm3 RBC (3.65-5.03) M/mm3 Hct (30.3-42.9) % MCH 27 L (28-32) pg RDW 16.8 H (13.2-15.2) % Plt Count 114 L (140-440) K/mm3 Seg Neuts % (Manual) 97.0 H (40.0-70.0) % Lymphocytes % (Manual) 3.0 L (13.4-35.0) % Nucleated RBC % 1.0 H (0.0-0.9) % Seg Neutrophils # Man 13.7 H (1.8-7.7) K/mm3 Lymphocytes # (Manual) 0.4 L (1.2-5.4) K/mm3 ABG pO2 52.3 L (80.0-90.0) mm Hg ABG O2 Saturation 84.5 L (95.0-99.0) % ABG Base Excess -2.9 L (-2.0-3.0) mmol/L Oxyhemoglobin 82.9 L (95.0-99.0) % Sodium 179 H* (137-145) mmol/L Potassium 2.9 L* (3.6-5.0) mmol/L Chloride 138.2 H (98-107) mmol/L Carbon Dioxide 20 L (22-30) mmol/L BUN 111 H (7-17) mg/dL Creatinine 3.7 H (0.6-1.2) mg/dL Glucose 465 H (65-100) mg/dL POC Glucose (70-105) mg/dL Lactic Acid (0.7-2.0) mmol/L Calcium (8.4-10.2) mg/dL Magnesium (1.7-2.3) mg/dL AST 73 H (5-40) units/L ALT 61 H (7-56) units/L Alkaline Phosphatase 144 H (35-129) units/L Total Creatine Kinase (30-135) units/L CK-MB (CK-2) (0.0-4.0) ng/mL Albumin 2.5 L (3.9-5) g/dL TSH (0.270-4.200) mlU/mL Urine Creatinine (0.1-20.0) mg/dL Urine Total Protein (5-11.8) mg/dL 04/21/21 04/21/21 04/21/21 Range/Units 04:24 05:45 06:47 WBC (4.5-11.0) K/mm3 RBC (3.65-5.03) M/mm3 Hct (30.3-42.9) % MCH (28-32) pg RDW (13.2-15.2) % Plt Count (140-440) K/mm3 Seg Neuts % (Manual) (40.0-70.0) % Lymphocytes % (Manual) (13.4-35.0) % Nucleated RBC % (0.0-0.9) % Seg Neutrophils # Man (1.8-7.7) K/mm3 Lymphocytes # (Manual) (1.2-5.4) K/mm3 ABG pO2 (80.0-90.0) mm Hg ABG O2 Saturation (95.0-99.0) % ABG Base Excess (-2.0-3.0) mmol/L Oxyhemoglobin (95.0-99.0) % Sodium (137-145) mmol/L Potassium (3.6-5.0) mmol/L Chloride (98-107) mmol/L Carbon Dioxide (22-30) mmol/L BUN (7-17) mg/dL Creatinine (0.6-1.2) mg/dL Glucose (65-100) mg/dL POC Glucose 353 H 280 H 260 H (70-105) mg/dL Lactic Acid (0.7-2.0) mmol/L Calcium (8.4-10.2) mg/dL Magnesium (1.7-2.3) mg/dL AST (5-40) units/L ALT (7-56) units/L Alkaline Phosphatase (35-129) units/L Total Creatine Kinase (30-135) units/L CK-MB (CK-2) (0.0-4.0) ng/mL Albumin (3.9-5) g/dL TSH (0.270-4.200) mlU/mL Urine Creatinine (0.1-20.0) mg/dL Urine Total Protein (5-11.8) mg/dL 04/21/21 04/21/21 04/21/21 Range/Units 08:01 11:11 12:51 WBC (4.5-11.0) K/mm3 RBC (3.65-5.03) M/mm3 Hct (30.3-42.9) % MCH (28-32) pg RDW (13.2-15.2) % Plt Count (140-440) K/mm3 Seg Neuts % (Manual) (40.0-70.0) % Lymphocytes % (Manual) (13.4-35.0) % Nucleated RBC % (0.0-0.9) % Seg Neutrophils # Man (1.8-7.7) K/mm3 Lymphocytes # (Manual) (1.2-5.4) K/mm3 ABG pO2 (80.0-90.0) mm Hg ABG O2 Saturation (95.0-99.0) % ABG Base Excess (-2.0-3.0) mmol/L Oxyhemoglobin (95.0-99.0) % Sodium (137-145) mmol/L Potassium (3.6-5.0) mmol/L Chloride (98-107) mmol/L Carbon Dioxide (22-30) mmol/L BUN (7-17) mg/dL Creatinine (0.6-1.2) mg/dL Glucose (65-100) mg/dL POC Glucose 68 L 146 H (70-105) mg/dL Lactic Acid (0.7-2.0) mmol/L Calcium (8.4-10.2) mg/dL Magnesium (1.7-2.3) mg/dL AST (5-40) units/L ALT (7-56) units/L Alkaline Phosphatase (35-129) units/L Total Creatine Kinase (30-135) units/L CK-MB (CK-2) (0.0-4.0) ng/mL Albumin (3.9-5) g/dL TSH (0.270-4.200) mlU/mL Urine Creatinine 44.3 H (0.1-20.0) mg/dL Urine Total Protein 12 H (5-11.8) mg/dL - Imaging and Cardiology Chest x-ray: image reviewed CT Scan - head: report reviewed Assessment and Plan 80 y/o female with altered mental state, severe electrolyte imbalance with presumptive acute renal failure and hypothermia. 1. Neuro-reached out to neuro surgery, placed consult in regards to CT findings 2. Renal-appreciate help and recs, will follow IV hydration recommendations 3. Blood cultures. Urine was negative 4. Jorge Hugger for temp Guarded prognosis CCT 31 minutes.
--- NOTE | 2021-04-21 13:45 | Event Note ---
Date: 04/21/21 Spoke with DINESH Bolanos ([phone]). He should be the point of contact and not the next of kin listed in the demographics section. Updated him on current state and where we are with work up. He did confirm that she has no metal in her body so if MRI is needed he would be the one to contact to fill out screening form.
[2021-04-21 14:55] LABS: Blood Urea Nitrogen TNR mg/dL (7-17)
[2021-04-21 14:56] LABS: BUN/Creatinine Ratio TNR; Calcium TNR mg/dL (8.4-10.2); Hemolysis Index TNR
[2021-04-21 14:59] LABS: Blood Urea Nitrogen TNR mg/dL (7-17)
[2021-04-21 15:00] LABS: Alanine Aminotransferase TNR units/L (7-56); Albumin TNR g/dL (3.9-5); BUN/Creatinine Ratio TNR; Calcium TNR mg/dL (8.4-10.2)
[2021-04-21 15:01] LABS: Hemolysis Index TNR
--- NOTE | 2021-04-21 15:05 | Progress Note ---
Assessment and Plan Assessment and plan: This is a 80-year-old female detention resident with GERD, hypothyroidism, hyperlipidemia, schizophrenia and dementia admitted with hypothermia, hyponatremia, hypokalemia, lactic acidosis, acute kidney injury, rhabdomyolysis and hyperosmolar nonketotic state. Neuro: Acute metabolic encephalopathy, normal pressure hydrocephalus -CT head shows lateral ventricles and third ventricle dilation, raises possibility of normal pressure hydrocephalus -Neurology and neurosurgery consulted, patient recommendations -Maintain sleep-wake cycle -Avoid delirium -Correct electrolyte derangements -Hold off on restarting home antipsychotic medications when obtained Cardio: NAD -Blood pressure monitor per protocol -LR bolus as needed -MIVF Respiratory: Acute hypoxic respiratory failure -Patient had hypoxia in the emergency department and was placed on BiPAP from nasal cannula per documentation -Patient was downgraded to nasal cannula by RT however she developed tachypnea and hypoxia and is currently on a nonrebreather -ABG: pH 7.486, PCO2 31.6, PO2 168.1, bicarb 23.3, base excess 0.3 100% FiO2 -Supplemental oxygen as needed -SPO2 monitoring -Pulmonary hygiene -Repeat CXR shows increased interstitial prominence of densities in bilateral lungs GI: Hypoalbuminemia, transaminitis -Presented with transaminitis -Trend LFTs -NGT to be placed -24 hours -no output recorded -BR: Senokot to start once not npo -PPI -Nutritional supplementation when able to : Severe hypernatremia, hypokalemia, hyperchloremia, metabolic acidosis, acute kidney injury likely secondary to vasomotor nephropathy, hypermagnesemia, urinary retention, rhabdomyolysis -FeNA 0.50 indicating prerenal sate -Nephrology consulted, appreciate -Given LR bolus -Replete potassium -Luther catheter placed for strict intake and output -[facility] consulted, patient recommendations -Avoid nephrotoxic medication -Trend BMP -Serial sodium checks -Renally dose medications -Trend CK -renal US pending ID: COVID-19 PUI, hypothermia, lactic acidosis -COVID-19 PCR negative -Discontinue droplet/contact isolation precautions -Blood culture x2 pending -Antibiotic therapy with Rocephin -Monitor WBC and fever curve -S/p 2 L IV fluid in the ED -Trend lactic acid Endo: HHNK -N.p.o. -Insulin drip -Serial BMPs -TSH 6.04, T4 0.93 -Avoid hypoglycemia Heme: Leukocytosis, thrombocytopenia -Trend CBC -Transfuse to hemoglobin less than 7 -Heparin subcu -SCD to bilateral lower extremities while in bed -Monitor for bleeding The high probability of a clinically significant, sudden or life threatening deterioration of the [multi] system(s) required my full and direct attention, intervention and personal management. The aggregate critical care time was [60] minutes. This time is in addition to time spent performing reported procedures but includes the following: [x] Data Review and interpretation [x] Patient assessment and monitoring of vital signs [x] Documentation [x] Medication orders and management Disposition Plan: icu Total Time Spent with Patient (Minutes): 60 History Interval history: This is a 80-year-old female who was detention resident at [place] with GERD, hypothyroidism, hyperlipidemia, schizophrenia and dementia presented to the emergency department on 04/20 after being found unresponsive by the staff via EMS. Per EMS glucose levels read as high. Work-up in the emergency department revealed severe hypernatremia, leukocytosis, metabolic acidosis, hyperchloremia, elevated BUN/creatinine, lactic acidosis and hyperglycemia. Patient was also hypothermic on admit. CT head showed findings suggestive of the possibility of normal pressure hydrocephalus. Patient was admitted to the hospitalist service with acute metabolic encephalopathy, diabetic hyperosmolar nonketotic state, acute kidney injury, hypernatremia, rhabdomyolysis and leukocytosis with consults to nephrology and CCM. 04/21: Given 1 L LR bolus per nephrology and D5W increased to 125 mL's per hour, COVID-19 PCR pending, CXR and ABG ordered as patient was weaned from BiPAP to 3 L nasal cannula however was uptitrated back to nonrebreather. Will obtain blood cultures x2 given her leukocytosis and hypothermia. Replace potassium. Neurosurgery and neurology consulted and Luther catheter placed. Hospitalist Physical - Constitutional Vitals: Temp Pulse Resp BP Pulse Ox 91.5 F L 69 26 H 101/57 97 04/21/21 06:20 04/21/21 08:23 04/21/21 08:23 04/21/21 08:23 04/21/21 10:25 General appearance: Present: no acute distress, other (Lying in bed unresponsive) - EENT Eyes: Present: PERRL, EOM intact ENT: hearing intact, clear oral mucosa, dentition normal - Neck Neck: Present: normal ROM - Respiratory Respiratory effort: normal Respiratory: bilateral: diminished - Cardiovascular Rhythm: regular Heart Sounds: Present: S1 & S2. Absent: systolic murmur, diastolic murmur - Extremities Extremities: no ischemia, pulses intact, pulses symmetrical, No edema, normal t emperature, normal color, Full ROM Peripheral Pulses: within normal limits - Abdominal General gastrointestinal: soft, non-tender, non-distended, normal bowel sounds - Integumentary Integumentary: Present: clear, warm, dry - Psychiatric Psychiatric: appropriate mood/affect, cooperative - Neurologic Neurologic: CNII-XII intact, moves all extremities - Allied Health Allied health notes reviewed: nursing, RT, social work HEART Score - HEART Score Troponin: Troponin T 0.021 ng/mL (0.00-0.029) 04/20/21 17:10 Results - Labs CBC & Chem 7: 04/21/21 03:41 04/21/21 14:04 Labs: Laboratory Last Values WBC 14.1 K/mm3 (4.5-11.0) H 04/21/21 03:41 RBC 4.83 M/mm3 (3.65-5.03) 04/21/21 03:41 Hgb 13.0 gm/dl (10.1-14.3) 04/21/21 03:41 Hct 42.1 % (30.3-42.9) 04/21/21 03:41 MCV 87 fl (79-97) 04/21/21 03:41 MCH 27 pg (28-32) L 04/21/21 03:41 MCHC 31 % (30-34) 04/21/21 03:41 RDW 16.8 % (13.2-15.2) H 04/21/21 03:41 Plt Count 114 K/mm3 (140-440) L 04/21/21 03:41 Add Manual Diff Complete 04/21/21 03:41 Total Counted 100 04/21/21 03:41 Seg Neutrophils % Anode Builder 04/21/21 03:41 Seg Neuts % (Manual) 97.0 % (40.0-70.0) H 04/21/21 03:41 Lymphocytes % (Manual) 3.0 % (13.4-35.0) L 04/21/21 03:41 Nucleated RBC % 1.0 % (0.0-0.9) H 04/21/21 03:41 Seg Neutrophils # Man 13.7 K/mm3 (1.8-7.7) H 04/21/21 03:41 Band Neutrophils # 0.0 K/mm3 04/21/21 03:41 Lymphocytes # (Manual) 0.4 K/mm3 (1.2-5.4) L 04/21/21 03:41 Abs React Lymphs (Man) 0.0 K/mm3 04/21/21 03:41 Monocytes # (Manual) 0.0 K/mm3 (0.0-0.8) 04/21/21 03:41 Eosinophils # (Manual) 0.0 K/mm3 (0.0-0.4) 04/21/21 03:41 Basophils # (Manual) 0.0 K/mm3 (0.0-0.1) 04/21/21 03:41 Metamyelocytes # 0.0 K/mm3 04/21/21 03:41 Myelocytes # 0.0 K/mm3 04/21/21 03:41 Promyelocytes # 0.0 K/mm3 04/21/21 03:41 Blast Cells # 0.0 K/mm3 04/21/21 03:41 WBC Morphology Not Reportable 04/21/21 03:41 Hypersegmented Neuts Not Reportable 04/21/21 03:41 Hyposegmented Neuts Not Reportable 04/21/21 03:41 Hypogranular Neuts Not Reportable 04/21/21 03:41 Smudge Cells Not Reportable 04/21/21 03:41 Toxic Granulation Not Reportable 04/21/21 03:41 Toxic Vacuolation Not Reportable 04/21/21 03:41 Dohle Bodies Not Reportable 04/21/21 03:41 Pelger-Huet Anomaly Not Reportable 04/21/21 03:41 Moni Rods Not Reportable 04/21/21 03:41 Platelet Estimate Consistent w auto 04/21/21 03:41 Clumped Platelets Not Reportable 04/21/21 03:41 Plt Clumps, EDTA Not Reportable 04/21/21 03:41 Large Platelets Not Reportable 04/21/21 03:41 Giant Platelets Not Reportable 04/21/21 03:41 Platelet Satelliting Not Reportable 04/21/21 03:41 Plt Morphology Comment Not Reportable 04/21/21 03:41 RBC Morphology Not Reportable 04/21/21 03:41 Dimorphic RBCs Not Reportable 04/21/21 03:41 Polychromasia Not Reportable 04/21/21 03:41 Hypochromasia Not Reportable 04/21/21 03:41 Poikilocytosis Not Reportable 04/21/21 03:41 Anisocytosis Not Reportable 04/21/21 03:41 Microcytosis Not Reportable 04/21/21 03:41 Macrocytosis Not Reportable 04/21/21 03:41 Spherocytes Not Reportable 04/21/21 03:41 Pappenheimer Bodies Not Reportable 04/21/21 03:41 Sickle Cells Not Reportable 04/21/21 03:41 Target Cells Not Reportable 04/21/21 03:41 Tear Drop Cells Not Reportable 04/21/21 03:41 Ovalocytes Not Reportable 04/21/21 03:41 Helmet Cells Not Reportable 04/21/21 03:41 Parkinson-Daykin Bodies Not Reportable 04/21/21 03:41 Felt Rings Not Reportable 04/21/21 03:41 [place] Cells Few 04/21/21 03:41 Bite Cells Not Reportable 04/21/21 03:41 Crenated Cell Not Reportable 04/21/21 03:41 Elliptocytes Not Reportable 04/21/21 03:41 Acanthocytes (Spur) Not Reportable 04/21/21 03:41 Rouleaux Not Reportable 04/21/21 03:41 Hemoglobin C Crystals Not Reportable 04/21/21 03:41 Schistocytes Not Reportable 04/21/21 03:41 Malaria parasites Not Reportable 04/21/21 03:41 Herrera Bodies Not Reportable 04/21/21 03:41 Hem Pathologist Commnt No 04/21/21 03:41 ABG pH 7.368 pH Units (7.350-7.450) 04/21/21 03:20 ABG pCO2 39.3 mm Hg 04/21/21 03:20 ABG pO2 52.3 mm Hg (80.0-90.0) L 04/21/21 03:20 ABG HCO3 22.1 mmol/L (20.0-26.0) 04/21/21 03:20 ABG O2 Saturation 84.5 % (95.0-99.0) L 04/21/21 03:20 ABG O2 Content 15.0 (0.0-44) 04/21/21 03:20 ABG Base Excess -2.9 mmol/L (-2.0-3.0) L 04/21/21 03:20 ABG Hemoglobin 12.9 gm/dl (12.0-16.0) 04/21/21 03:20 ABG Carboxyhemoglobin 1.3 % (0.0-5.0) 04/21/21 03:20 ABG Methemoglobin 0.7 % (0.0-1.5) 04/21/21 03:20 VBG pH 7.397 (7.320-7.420) 04/20/21 17:10 Oxyhemoglobin 82.9 % (95.0-99.0) L 04/21/21 03:20 FiO2 100 % 04/21/21 03:20 Sodium TNR 04/21/21 14:04 Sodium TNR 04/21/21 14:04 Potassium TNR 04/21/21 14:04 Potassium TNR 04/21/21 14:04 Chloride TNR 04/21/21 14:04 Chloride TNR 04/21/21 14:04 Carbon Dioxide TNR 04/21/21 14:04 Carbon Dioxide TNR 04/21/21 14:04 Anion Gap TNR 04/21/21 14:04 Anion Gap TNR 04/21/21 14:04 BUN TNR 04/21/21 14:04 BUN TNR 04/21/21 14:04 Creatinine TNR 04/21/21 14:04 Creatinine TNR 04/21/21 14:04 Estimated GFR TNR 04/21/21 14:04 Estimated GFR TNR 04/21/21 14:04 BUN/Creatinine Ratio TNR 04/21/21 14:04 BUN/Creatinine Ratio TNR 04/21/21 14:04 Glucose TNR 04/21/21 14:04 Glucose TNR 04/21/21 14:04 POC Glucose 186 mg/dL (70-105) H 04/21/21 14:40 Lactic Acid 1.90 mmol/L (0.7-2.0) 04/20/21 19:56 Calcium TNR 04/21/21 14:04 Calcium TNR 04/21/21 14:04 Phosphorus 3.90 mg/dL (2.5-4.5) 04/20/21 22:58 Magnesium 3.50 mg/dL (1.7-2.3) H 04/20/21 22:58 Total Bilirubin TNR 04/21/21 14:04 AST TNR 04/21/21 14:04 ALT TNR 04/21/21 14:04 Alkaline Phosphatase TNR 04/21/21 14:04 Ammonia 29.0 umol/L (25-60) 04/20/21 17:10 Total Creatine Kinase 3697 units/L (30-135) H 04/20/21 17:10 CK-MB (CK-2) 36.0 ng/mL (0.0-4.0) H 04/20/21 17:10 CK-MB (CK-2) Rel Index 0.9 (0-4) 04/20/21 17:10 Troponin T 0.021 ng/mL (0.00-0.029) 04/20/21 17:10 Total Protein TNR 04/21/21 14:04 Albumin TNR 04/21/21 14:04 Albumin/Globulin Ratio TNR 04/21/21 14:04 TSH 6.040 mlU/mL (0.270-4.200) H 04/20/21 17:10 Free T4 0.93 ng/dL (0.76-1.46) 04/20/21 17:10 Urine Color Yellow (Yellow) 04/20/21 Unknown Urine Turbidity Slightly-cloudy (Clear) 04/20/21 Unknown Urine pH 5.0 (5.0-7.0) 04/20/21 Unknown Ur Specific Allen 1.016 (1.003-1.030) 04/20/21 Unknown Urine Protein <15 mg/dl mg/dL (Negative) 04/20/21 Unknown Urine Glucose (UA) >=500 mg/dL (Negative) 04/20/21 Unknown Urine Ketones Tr mg/dL (Negative) 04/20/21 Unknown Urine Blood Mod (Negative) 04/20/21 Unknown Urine Nitrite Neg (Negative) 04/20/21 Unknown Urine Bilirubin Neg (Negative) 04/20/21 Unknown Urine Urobilinogen < 2.0 mg/dL (<2.0) 04/20/21 Unknown Ur Leukocyte Esterase Neg (Negative) 04/20/21 Unknown Urine WBC (Auto) 3.0 /HPF (0.0-6.0) 04/20/21 Unknown Urine RBC (Auto) 1.0 /HPF (0.0-6.0) 04/20/21 Unknown Urine Mucus Few /HPF 04/20/21 Unknown Urine Osmolality 446 Mosm/kg 04/21/21 08:01 Urine Creatinine 44.3 mg/dL (0.1-20.0) H 04/21/21 08:01 Urine Sodium 71 mmol/L 04/21/21 08:01 Urine Total Protein 12 mg/dL (5-11.8) H 04/21/21 08:01 Plasma/Serum Alcohol < 0.01 % (0-0.07) 04/20/21 17:10 Active Medications - Current Medications Current Medications: Generic Name Dose Route Start Last Admin Trade Name Freq PRN Reason Stop Dose Admin Acetaminophen 650 mg 04/20/21 21:31 Acetaminophen 325 Mg Tab PO Q4H PRN Pain MILD(1-3)/Fever >100.5/TURCIOS Dextrose 0 ml 04/20/21 21:46 04/21/21 11:15 Dextrose 50% In Water (25gm) 50 Ml Syringe IV 15 ml Q30MIN PRN Administration Hypoglycemia Protocol Heparin Sodium (Porcine) 5,000 unit 04/20/21 22:00 04/21/21 10:55 Heparin 5,000 Unit/1 Ml Vial SUB-Q 5,000 unit Q12HR AZIZA Administration Insulin Human Regular 100 100 mls @ 1 mls/hr 04/20/21 22:00 04/21/21 14:44 units/ Sodium Chloride IV 4 units/hr TITR AZIZA 4 mls/hr Titration Protocol 1 UNITS/HR Dextrose 1,000 mls @ 125 mls/hr 04/21/21 02:00 04/21/21 10:55 D5w IV 125 mls/hr DIRECT AZIZA Administration Ceftriaxone Sodium 1 gm in 50 mls @ 100 mls/hr 04/21/21 09:00 04/21/21 10:55 Rocephin/Ns 1 Gm/50 Ml IV 100 mls/hr Q24H AZIZA Administration Protocol Metoclopramide HCl 5 mg 04/20/21 21:31 Metoclopramide 10 Mg/2 Ml Inj IV Q6H PRN Nausea And Vomiting Morphine Sulfate 2 mg 12/29/21 21:31 Morphine 2 Mg/1 Ml Inj IV Q4H PRN Pain, Moderate (4-6) Ondansetron HCl 4 mg 04/20/21 21:31 Ondansetron 4 Mg/2 Ml Inj IV Q8H PRN Nausea And Vomiting Sodium Chloride 10 ml 04/20/21 22:00 04/21/21 10:56 Sodium Chloride 0.9% 10 Ml Flush Syringe IV 10 ml BID AZIZA Administration Sodium Chloride 10 ml 04/20/21 21:31 Sodium Chloride 0.9% 10 Ml Flush Syringe IV PRN PRN LINE FLUSH Nutrition/Malnutrition Assess - Dietary Evaluation Nutrition/Malnutrition Findings: Nutrition Notes Start: 04/21/21 12:15 Freq: Status: Active Protocol: Document 04/21/21 12:16 JOSE (Rec: 04/21/21 12:37 JOSE [email or web address]) Nutrition Notes Need for Assessment generated from: MD Order,Education,Low BMI Initial or Follow up Assessment Current Diagnosis Acute Kidney Injury Other Pertinent Diagnosis M Encephalopathy, Hyperosmolar state, Rabdomyolysis, Leukocytosis, Dementia Current Diet Cardiac (since B 04/21). Labs/Tests 04/21: Na 179, K 2.9, Cl 138.2 , CO2 20, BUN 111, Crea 3.7, Glu 465, AST 73, ALT 61, AlkPhos 144, Alb 2.5. Pertinent Medications 04/21: D50w (25 mg) Q 30 min PRN, D5w 1000 ml @ 125 ml/hr, insulin, others nutritionally unremarkable. Height 5 ft 2 in Weight 45.359 kg [place] Body Weight (kg) 50.00 BMI 18.3 Weight change and time frame None reported at admission. Weight Status Underweight Subjective/Other Information RD consult for Nutrition Education and Low BMI assessment. Pt is unresponsive, Pt lives at [facility], Pt is not a candidate for Nutrition Education. Pt's Low BMI appears to be a natural condition, and not a consequence of sullen loss of body weight nor malnutrition. Percent of energy/protein needs met: Prescribed Cardiac Diet provides for energy/protein needs (2,230 Kcal/85 g) during LOS. Burn Absent Trauma Absent GI Symptoms None Food Allergy No Skin Integrity/Comment Clear, warm, dry. Minimum of two criteria No Is patient on ventilator? No Is Patient Ambulatory and/or Out of Bed Yes REE-([place]-ambulatory/OOB) [ 1146.392 [id number]] Calculation Used for Recommendations [facility] Additional Notes Protein: 1-1.2 g/Kg; 45-54 g/ day. Fluids: 1 ml/Kcal, or as per MD. Nutrition Intervention Change Diet Order: Continue Cardiac Diet. Revisit per MD consult or patient Sign Off request: Additional Comments Continue monitoring food tolerance, %PO intake of meals , and BM.
--- NOTE | 2021-04-21 15:23 | XRay Report ---
CHEST 1 VIEW 04/21/2021 2:03 PM INDICATION / CLINICAL INFORMATION: hypoxia. COMPARISON: 04/20/2021 FINDINGS: SUPPORT DEVICES: None. HEART / MEDIASTINUM: No significant abnormality. LUNGS / PLEURA: Increased interstitial prominence and densities in bilateral lungs appear slightly in creased since prior exam No pneumothorax. Signer Name: Darshan Hdz MD Signed: 04/21/2021 3:18 PM Workstation Name: [id number]
[2021-04-21 16:18] LABS: ABG Base Excess 0.3 mmol/L (-2.0-3.0); ABG HCO3 23.3 mmol/L (20.0-26.0); ABG Methemoglobin 0.6 % (0.0-1.5); ABG Oxygen Saturation 99.1 % (95.0-99.0); ABG PCO2 31.6 mm Hg; ABG PH 7.486 pH Units (7.350-7.450); ABG PO2 168.1 mm Hg (80.0-90.0)
[2021-04-21] MEDS: FAMOTIDINE 20 MG/2 ML INJ IV SCH (18:18)
[2021-04-21 19:32] LABS: Albumin 2.2 g/dL (3.9-5); Calcium 8.6 mg/dL (8.4-10.2)
--- NOTE | 2021-04-21 22:47 | XRay Report ---
ABDOMEN 1 VIEW 04/21/2021 INDICATION / CLINICAL INFORMATION: placement of NGT. COMPARISON: Chest radiograph from earlier in the day FINDINGS: TUBES / LINES: Enteric tube terminates within the stomach with the side-port within the stomach. BOWEL GAS PATTERN: No significant abnormality. FREE AIR / EXTRALUMINAL GAS: None seen. ADDITIONAL FINDINGS: No change in airspace opacities of the visualized lung. IMPRESSION: 1. Enteric tube terminates within the stomach with side-port within the stomach. Signer Name: Samir Chew DO Signed: 04/21/2021 10:43 PM Workstation Name: [id number]
[2021-04-21 23:49] LABS: Calcium 8.6 mg/dL (8.4-10.2)
[2021-04-22] MEDS: INSULIN REGULAR, HUMAN 100 UNITS in SODIUM CHLORIDE 0.9% 99 ML IV SCH (03:38)
[2021-04-22] MEDS: DEXTROSE 5% IN WATER 1,000 ML IV SCH ×2 (03:40→14:18)
[2021-04-22 05:42] LABS: Mean Corpuscular HGB Conc 30 % (30-34); Mean Corpuscular Volume 88 fl (79-97); Red Blood Count 5.03 M/mm3 (3.65-5.03); Red Cell Distribution Width 17.1 % (13.2-15.2)
[2021-04-22 05:45] LABS: Hematocrit 44.3 % (30.3-42.9); Hemoglobin 13.4 gm/dl (10.1-14.3); Platelet Count 86 K/mm3 (140-440)
[2021-04-22 06:59] LABS: Total Cells Counted 100
[2021-04-22 07:00] LABS: Anisocytosis 1+; Platelet Estimate Consistent w Auto
[2021-04-22] MEDS: cefTRIAXone/NS 1 GM/50 ML 1 GM/50 ML BAG IV SCH (09:20)
[2021-04-22] MEDS: FAMOTIDINE 20 MG/2 ML INJ IV SCH (09:20)
[2021-04-22] MEDS: HEPARIN 5,000 UNIT/1 ML VIAL SUB-Q SCH (09:20)
--- NOTE | 2021-04-22 10:15 | Progress Note ---
Assessment and Plan (1) Acute metabolic encephalopathy (2) Diabetic hyperosmolar non-ketotic state 3) SYED (acute kidney injury) (4) Dehydration (5) Hypernatremia (6) Rhabdomyolysis (7) Hypernatremia 8) GERD (gastroesophageal reflux disease) (9) Metabolic acidosis (10) Leukocytosis Continue D5W Na trending down BUN/Cr trending down. will check Na every 8 hours, avoid correction more than 10 mmol/l in 24 hoursNo indication for [employer] UA bland will cont to monitor CK renally dose meds Strict I&O daily weights Subjective Date of service: 04/22/21 Interval history: Making urine. Na high Objective - Exam Narrative Exam: General appearance: cachectic EENT: mucous membranes dry Neck: Present: neck supple Respiratory: Decreased Breath Sounds Heart: tachycardia Gastrointestinal: Present: normoactive bowel sounds. Absent: tenderness, distended, masses Integumentary: no rash, warm and dry Neurologic: other (does not follow commands) Musculoskeletal: Present: other (no edema in BLE) - Vital Signs Vital signs: Vital Signs - 12hr 04/21/21 04/21/21 04/21/21 22:20 22:30 22:40 Temperature Pulse Rate 100 H 110 H 107 H Pulse Rate [ Left Radial] Pulse Rate [ Right Radial] Respiratory 34 H 30 H Rate Blood Pressure 118/63 123/66 123/66 O2 Sat by Pulse 90 90 94 Oximetry 04/21/21 04/21/21 04/21/21 22:50 23:00 23:10 Temperature Pulse Rate 110 H 109 H 103 H Pulse Rate [ Left Radial] Pulse Rate [ Right Radial] Respiratory 31 H 33 H 34 H Rate Blood Pressure 116/64 108/61 108/61 O2 Sat by Pulse 93 90 92 Oximetry 04/21/21 04/21/21 04/21/21 23:20 23:27 23:28 Temperature Pulse Rate 103 H 106 H Pulse Rate [ 104 H Left Radial] Pulse Rate [ 105 H Right Radial] Respiratory 34 H 30 H Rate Blood Pressure 106/53 O2 Sat by Pulse 93 99 Oximetry 04/21/21 04/21/21 04/21/21 23:30 23:34 23:40 Temperature Pulse Rate 104 H 104 H 103 H Pulse Rate [ Left Radial] Pulse Rate [ Right Radial] Respiratory 35 H 35 H 33 H Rate Blood Pressure 106/58 106/58 106/58 O2 Sat by Pulse 91 92 93 Oximetry 04/21/21 04/22/21 04/22/21 23:50 00:00 00:10 Temperature 99.8 F H Pulse Rate 103 H 103 H 103 H Pulse Rate [ 104 H Left Radial] Pulse Rate [ 105 H Right Radial] Respiratory 35 H 33 H 34 H Rate Blood Pressure 105/60 112/59 112/59 O2 Sat by Pulse 93 92 93 Oximetry 04/22/21 04/22/21 04/22/21 00:20 00:30 00:40 Temperature Pulse Rate 102 H 102 H 102 H Pulse Rate [ Left Radial] Pulse Rate [ Right Radial] Respiratory 34 H 34 H 35 H Rate Blood Pressure 107/54 109/54 109/54 O2 Sat by Pulse 92 92 93 Oximetry 04/22/21 04/22/21 04/22/21 00:50 01:00 01:10 Temperature Pulse Rate 99 H 98 H 98 H Pulse Rate [ Left Radial] Pulse Rate [ Right Radial] Respiratory 35 H 34 H 37 H Rate Blood Pressure 119/61 112/64 112/64 O2 Sat by Pulse 94 94 95 Oximetry 04/22/21 04/22/21 04/22/21 01:20 01:30 01:40 Temperature Pulse Rate 98 H 94 H 94 H Pulse Rate [ Left Radial] Pulse Rate [ Right Radial] Respiratory 36 H 34 H 33 H Rate Blood Pressure 124/64 115/62 115/62 O2 Sat by Pulse 94 92 94 Oximetry 04/22/21 04/22/21 04/22/21 01:50 02:00 02:10 Temperature Pulse Rate 93 H 95 H 93 H Pulse Rate [ Left Radial] Pulse Rate [ Right Radial] Respiratory 34 H 32 H 32 H Rate Blood Pressure 115/66 121/69 121/69 O2 Sat by Pulse 94 90 94 Oximetry 04/22/21 04/22/21 04/22/21 02:20 02:23 02:30 Temperature 99.2 F Pulse Rate 87 87 Pulse Rate [ Left Radial] Pulse Rate [ Right Radial] Respiratory 28 H 25 H Rate Blood Pressure 123/65 110/65 O2 Sat by Pulse 93 91 Oximetry 04/22/21 04/22/21 04/22/21 02:40 02:50 03:00 Temperature Pulse Rate 89 83 87 Pulse Rate [ Left Radial] Pulse Rate [ Right Radial] Respiratory 28 H 25 H 29 H Rate Blood Pressure 110/65 106/59 127/77 O2 Sat by Pulse 94 94 92 Oximetry 04/22/21 04/22/21 04/22/21 03:10 03:20 03:30 Temperature Pulse Rate 83 81 83 Pulse Rate [ Left Radial] Pulse Rate [ Right Radial] Respiratory 25 H 25 H 29 H Rate Blood Pressure 127/77 126/70 122/64 O2 Sat by Pulse 95 95 88 Oximetry 04/22/21 04/22/21 04/22/21 03:40 03:50 04:00 Temperature Pulse Rate 82 81 81 Pulse Rate [ 104 H Left Radial] Pulse Rate [ 105 H Right Radial] Respiratory 27 H 25 H 24 Rate Blood Pressure 122/64 126/69 135/63 O2 Sat by Pulse 94 93 85 Oximetry 04/22/21 04/22/21 04/22/21 04:10 04:20 04:30 Temperature Pulse Rate 79 76 77 Pulse Rate [ Left Radial] Pulse Rate [ Right Radial] Respiratory 20 21 23 Rate Blood Pressure 135/63 150/60 118/70 O2 Sat by Pulse 94 93 88 Oximetry 04/22/21 04/22/21 04/22/21 04:40 04:50 05:00 Temperature Pulse Rate 77 80 76 Pulse Rate [ Left Radial] Pulse Rate [ Right Radial] Respiratory 25 H 29 H 28 H Rate Blood Pressure 118/70 103/57 103/57 O2 Sat by Pulse 93 88 93 Oximetry 04/22/21 04/22/21 04/22/21 05:10 05:20 05:30 Temperature Pulse Rate 78 77 79 Pulse Rate [ Left Radial] Pulse Rate [ Right Radial] Respiratory 30 H 29 H 30 H Rate Blood Pressure 103/57 103/57 91/48 O2 Sat by Pulse 94 93 87 Oximetry 04/22/21 04/22/21 04/22/21 05:40 05:50 06:00 Temperature 98.1 F Pulse Rate 79 82 87 Pulse Rate [ Left Radial] Pulse Rate [ Right Radial] Respiratory 30 H 30 H 34 H Rate Blood Pressure 91/48 91/48 108/59 O2 Sat by Pulse 94 93 90 Oximetry 04/22/21 04/22/21 04/22/21 06:10 06:20 06:30 Temperature Pulse Rate 87 87 89 Pulse Rate [ Left Radial] Pulse Rate [ Right Radial] Respiratory 34 H 35 H 35 H Rate Blood Pressure 108/59 108/59 105/51 O2 Sat by Pulse 93 93 86 Oximetry 04/22/21 04/22/21 04/22/21 06:40 06:50 07:00 Temperature Pulse Rate 92 H 93 H 98 H Pulse Rate [ Left Radial] Pulse Rate [ Right Radial] Respiratory 36 H 35 H 37 H Rate Blood Pressure 105/51 105/51 100/52 O2 Sat by Pulse 94 94 87 Oximetry 04/22/21 04/22/21 04/22/21 07:10 07:20 07:30 Temperature Pulse Rate 96 H 96 H 98 H Pulse Rate [ Left Radial] Pulse Rate [ Right Radial] Respiratory 35 H 35 H 37 H Rate Blood Pressure 100/52 100/52 107/45 O2 Sat by Pulse 95 94 86 Oximetry 04/22/21 04/22/21 04/22/21 07:40 07:45 07:50 Temperature Pulse Rate 97 H 98 H 97 H Pulse Rate [ Left Radial] Pulse Rate [ 98 H Right Radial] Respiratory 34 H 34 H 34 H Rate Blood Pressure 107/45 107/45 O2 Sat by Pulse 95 96 95 Oximetry 04/22/21 04/22/21 04/22/21 08:00 08:10 08:20 Temperature 97.9 F Pulse Rate 98 H 98 H 98 H Pulse Rate [ Left Radial] Pulse Rate [ Right Radial] Respiratory 36 H 36 H 35 H Rate Blood Pressure 101/51 101/51 101/51 O2 Sat by Pulse 88 94 94 Oximetry 04/22/21 04/22/21 04/22/21 08:30 08:40 08:50 Temperature Pulse Rate 97 H 97 H 97 H Pulse Rate [ Left Radial] Pulse Rate [ Right Radial] Respiratory 33 H 35 H 34 H Rate Blood Pressure 102/48 102/48 102/48 O2 Sat by Pulse 87 94 94 Oximetry 04/22/21 09:00 Temperature Pulse Rate 97 H Pulse Rate [ Left Radial] Pulse Rate [ Right Radial] Respiratory 29 H Rate Blood Pressure 99/47 O2 Sat by Pulse 91 Oximetry - Lab 04/22/21 04:52 04/22/21 08:59 Most recent lab results ABG pH 7.486 pH Units (7.350-7.450) H 04/21/21 15:47 ABG pCO2 31.6 mm Hg 04/21/21 15:47 ABG pO2 168.1 mm Hg (80.0-90.0) H 04/21/21 15:47 ABG HCO3 23.3 mmol/L (20.0-26.0) 04/21/21 15:47 ABG O2 Saturation 99.1 % (95.0-99.0) H 04/21/21 15:47 Calcium 8.6 mg/dL (8.4-10.2) 04/21/21 23:00 Phosphorus 4.20 mg/dL (2.5-4.5) 04/22/21 04:52 Magnesium 3.50 mg/dL (1.7-2.3) H 04/20/21 22:58 Urine Creatinine 44.3 mg/dL (0.1-20.0) H 04/21/21 08:01 Urine Sodium 71 mmol/L 04/21/21 08:01 Urine Total Protein 12 mg/dL (5-11.8) H 04/21/21 08:01 Medications & Allergies - Medications Allergies/Adverse Reactions: Allergies No Known Allergies Allergy (Unverified 04/20/21 14:35) Active Medications: Generic Name Dose Route Start Last Admin Trade Name Freq PRN Reason Stop Dose Admin Acetaminophen 650 mg 04/20/21 21:31 Acetaminophen 325 Mg Tab PO Q4H PRN Pain MILD(1-3)/Fever >100.5/TURCIOS Dextrose 0 ml 04/20/21 21:46 04/21/21 11:15 Dextrose 50% In Water (25gm) 50 Ml Syringe IV 15 ml Q30MIN PRN Administration Hypoglycemia Protocol Famotidine 20 mg 04/21/21 18:00 04/22/21 09:20 Famotidine 20 Mg/2 Ml Inj IV 20 mg QDAY AZIZA Administration Heparin Sodium (Porcine) 5,000 unit 04/20/21 22:00 04/22/21 09:20 Heparin 5,000 Unit/1 Ml Vial SUB-Q 5,000 unit Q12HR AZIZA Administration Insulin Human Regular 100 100 mls @ 1 mls/hr 04/20/21 22:00 04/22/21 09:18 units/ Sodium Chloride IV 7 units/hr TITR AZIZA 7 mls/hr Titration Protocol 1 UNITS/HR Dextrose 1,000 mls @ 125 mls/hr 04/21/21 02:00 04/22/21 03:40 D5w IV 125 mls/hr DIRECT AZIZA Administration Ceftriaxone Sodium 1 gm in 50 mls @ 100 mls/hr 04/21/21 09:00 04/22/21 09:20 Rocephin/Ns 1 Gm/50 Ml IV 100 mls/hr Q24H AZIZA Administration Protocol Metoclopramide HCl 5 mg 04/20/21 21:31 Metoclopramide 10 Mg/2 Ml Inj IV Q6H PRN Nausea And Vomiting Morphine Sulfate 2 mg 04/20/21 21:31 Morphine 2 Mg/1 Ml Inj IV Q4H PRN Pain, Moderate (4-6) Ondansetron HCl 4 mg 04/20/21 21:31 Ondansetron 4 Mg/2 Ml Inj IV Q8H PRN Nausea And Vomiting Sodium Chloride 10 ml 04/20/21 22:00 04/22/21 09:20 Sodium Chloride 0.9% 10 Ml Flush Syringe IV 10 ml BID AZIZA Administration Sodium Chloride 10 ml 04/20/21 21:31 Sodium Chloride 0.9% 10 Ml Flush Syringe IV PRN PRN LINE FLUSH
[2021-04-22 10:21] LABS: Albumin 2.1 g/dL (3.9-5); Calcium 8.5 mg/dL (8.4-10.2)
--- NOTE | 2021-04-22 14:10 | Ultrasound Report ---
Renal ultrasound INDICATION: Kidney disease FINDINGS: Right kidney measures 10.8 cm in left kidney 9.5 cm. Examination limited due to body habitu s. No mass or cyst. Luther catheter is seen in the bladder. IMPRESSION: No acute findings. Signer Name: Darshan Hdz MD Signed: 04/22/2021 2:06 PM Workstation Name: [id number]
[2021-04-22] MEDS ORDERED: DEXTROSE 50% IN WATER (25GM) 50 ML SYRINGE IV PRN (15:01)
--- NOTE | 2021-04-22 15:02 | Progress Note ---
Assessment and Plan Assessment and plan: This is a 80-year-old female senior living resident with GERD, hypothyroidism, hyperlipidemia, schizophrenia and dementia admitted with hypothermia, hyponatremia, hypokalemia, lactic acidosis, acute kidney injury, rhabdomyolysis and hyperosmolar nonketotic state. Neuro: Acute metabolic encephalopathy, normal pressure hydrocephalus -CT head shows lateral ventricles and third ventricle dilation, raises possibility of normal pressure hydrocephalus -Neurology and neurosurgery consulted, appreciate recommendations -Maintain sleep-wake cycle -Avoid delirium -Correct electrolyte derangements -Hold off on restarting home antipsychotic medications when obtained Cardio: NAD -Blood pressure monitoring per protocol -LR bolus as needed -MIVF Respiratory: Acute hypoxic respiratory failure -Patient had hypoxia in the emergency department and was placed on BiPAP from nasal cannula per documentation -Patient was downgraded to nasal cannula by RT however she developed tachypnea and hypoxia and is currently on a nonrebreather -ABG: pH 7.486, PCO2 31.6, PO2 168.1, bicarb 23.3, base excess 0.3 100% FiO2 -Supplemental oxygen as needed -SPO2 monitoring -Pulmonary hygiene -Repeat CXR shows increased interstitial prominence of densities in bilateral lungs GI: Hypoalbuminemia, transaminitis -Presented with transaminitis -Trend LFTs -Ntr consult for TF -started on TF today -24 hours 927 ml -BR: Senokot -PPI -Nutritional supplementation : Severe hypernatremia, hypokalemia, hyperchloremia, metabolic acidosis, acute kidney injury likely secondary to vasomotor nephropathy, urinary retention, rhabdomyolysis -FeNA 0.50 indicating prerenal sate -Nephrology consulted, appreciate -Replete potassium -Luther catheter placed for strict intake and output -[facility] consulted, appreciate recommendations -Avoid nephrotoxic medication -Trend BMP -Serial sodium checks -Renally dose medications -Trend CK -renal US pending ID: Hypothermia, lactic acidosis -COVID-19 PCR negative -Blood culture x2 pending -Antibiotic therapy with Rocephin -Monitor WBC and fever curve -S/p 2 L IV fluid in the ED -Trend lactic acid Endo: s/p HHNK -TF -s/p Insulin drip -SSI -Accucheck q 6 -70/30-titrate as needed -TSH 6.04, T4 0.93 -Avoid hypoglycemia Heme: Leukocytosis, thrombocytopenia -Trend CBC -Transfuse to hemoglobin less than 7 -Heparin subcu -stop today given plt < 100 -SCD to bilateral lower extremities while in bed -Monitor for bleeding The high probability of a clinically significant, sudden or life threatening deterioration of the [multi] system(s) required my full and direct attention, intervention and personal management. The aggregate critical care time was [60] minutes. This time is in addition to time spent performing reported procedures but includes the following: [x] Data Review and interpretation [x] Patient assessment and monitoring of vital signs [x] Documentation [x] Medication orders and management Disposition Plan: icu Total Time Spent with Patient (Minutes): 60 History Interval history: This is a 80-year-old female who was senior living resident at [facility] with GERD, hypothyroidism, hyperlipidemia, schizophrenia and dementia presented to the emergency department on 04/20 after being found unresponsive by the staff via EMS. Per EMS glucose levels read as high. Work-up in the emergency department revealed severe hypernatremia, leukocytosis, metabolic acidosis, hyperchloremia, elevated BUN/creatinine, lactic acidosis and hyperglycemia. Patient was also hypothermic on admit. CT head showed findings suggestive of the possibility of normal pressure hydrocephalus. Patient was admitted to the hospitalist service with acute metabolic encephalopathy, diabetic hyperosmolar nonketotic state, acute kidney injury, hypernatremia, rhabdomyolysis and leukocytosis with consults to nephrology and [facility]. 04/21: Given 1 L LR bolus per nephrology and D5W increased to 125 mL's per hour, COVID-19 PCR pending, CXR and ABG ordered as patient was weaned from BiPAP to 3 L nasal cannula however was uptitrated back to nonrebreather. Will obtain blood cultures x2 given her leukocytosis and hypothermia. Replace potassium. Neurosurgery and neurology consulted and Luther catheter placed. 04/22: Improvement to sodium noted, slight hypokalemia which will be repleted, slight improvement to renal function, LFTs and rhabdomyolysis. Seen by neurosurgery today. Patient still making urine. transition to ssi and start TF as AG 15 Hospitalist Physical - Constitutional Vitals: Temp Pulse Resp BP Pulse Ox 98.1 F 109 H 26 H 114/59 97 04/22/21 12:00 04/22/21 14:20 04/22/21 14:20 04/22/21 14:20 04/22/21 14:20 General appearance: Present: no acute distress, other (Lying in bed unresponsive) - EENT Eyes: Present: PERRL, EOM intact ENT: hearing intact, clear oral mucosa, dentition normal - Neck Neck: Present: normal ROM - Respiratory Respiratory effort: normal Respiratory: bilateral: diminished - Cardiovascular Rhythm: regular Heart Sounds: Present: S1 & S2. Absent: systolic murmur, diastolic murmur - Extremities Extremities: no ischemia, pulses intact, pulses symmetrical, No edema, normal temperature, normal color Peripheral Pulses: within normal limits - Abdominal General gastrointestinal: soft, non-tender, non-distended, normal bowel sounds - Integumentary Integumentary: Present: warm, dry - Neurologic Neurologic: moves all extremities - Allied Health Allied health notes reviewed: nursing, RT HEART Score - HEART Score Troponin: Troponin T 0.021 ng/mL (0.00-0.029) 04/20/21 17:10 Results - Labs CBC & Chem 7: 04/22/21 04:52 04/22/21 08:59 Labs: Laboratory Last Values WBC 11.2 K/mm3 (4.5-11.0) H 04/22/21 04:52 RBC 5.03 M/mm3 (3.65-5.03) 04/22/21 04:52 Hgb 13.4 gm/dl (10.1-14.3) 04/22/21 04:52 Hct 44.3 % (30.3-42.9) H 04/22/21 04:52 MCV 88 fl (79-97) 04/22/21 04:52 MCH 27 pg (28-32) L 04/22/21 04:52 MCHC 30 % (30-34) 04/22/21 04:52 RDW 17.1 % (13.2-15.2) H 04/22/21 04:52 Plt Count 86 K/mm3 (140-440) L 04/22/21 04:52 Add Manual Diff Complete 04/22/21 04:52 Total Counted 100 04/22/21 04:52 Seg Neutrophils % [place] 04/22/21 04:52 Seg Neuts % (Manual) 86.0 % (40.0-70.0) H 04/22/21 04:52 Lymphocytes % (Manual) 13.0 % (13.4-35.0) L 04/22/21 04:52 Monocytes % (Manual) 1.0 % (0.0-7.3) 04/22/21 04:52 Nucleated RBC % Not Reportable 04/22/21 04:52 Seg Neutrophils # Man 9.6 K/mm3 (1.8-7.7) H 04/22/21 04:52 Band Neutrophils # 0.0 K/mm3 04/22/21 04:52 Lymphocytes # (Manual) 1.5 K/mm3 (1.2-5.4) 04/22/21 04:52 Abs React Lymphs (Man) 0.0 K/mm3 04/22/21 04:52 Monocytes # (Manual) 0.1 K/mm3 (0.0-0.8) 04/22/21 04:52 Eosinophils # (Manual) 0.0 K/mm3 (0.0-0.4) 04/22/21 04:52 Basophils # (Manual) 0.0 K/mm3 (0.0-0.1) 04/22/21 04:52 Metamyelocytes # 0.0 K/mm3 04/22/21 04:52 Myelocytes # 0.0 K/mm3 04/22/21 04:52 Promyelocytes # 0.0 K/mm3 04/22/21 04:52 Blast Cells # 0.0 K/mm3 04/22/21 04:52 WBC Morphology Not Reportable 04/22/21 04:52 Hypersegmented Neuts Not Reportable 04/22/21 04:52 Hyposegmented Neuts Not Reportable 04/22/21 04:52 Hypogranular Neuts Not Reportable 04/22/21 04:52 Smudge Cells Not Reportable 04/22/21 04:52 Toxic Granulation Not Reportable 04/22/21 04:52 Toxic Vacuolation Not Reportable 04/22/21 04:52 Dohle Bodies Not Reportable 04/22/21 04:52 Pelger-Huet Anomaly Not Reportable 04/22/21 04:52 Moni Rods Not Reportable 04/22/21 04:52 Platelet Estimate Consistent w auto 04/22/21 04:52 Clumped Platelets Not Reportable 04/22/21 04:52 Plt Clumps, EDTA Not Reportable 04/22/21 04:52 Large Platelets Not Reportable 04/22/21 04:52 Giant Platelets Not Reportable 04/22/21 04:52 Platelet Satelliting Not Reportable 04/22/21 04:52 Plt Morphology Comment Not Reportable 04/22/21 04:52 RBC Morphology Not Reportable 04/22/21 04:52 Dimorphic RBCs Not Reportable 04/22/21 04:52 Polychromasia Not Reportable 04/22/21 04:52 Hypochromasia Not Reportable 04/22/21 04:52 Poikilocytosis Not Reportable 04/22/21 04:52 Anisocytosis 1+ 04/22/21 04:52 Microcytosis Not Reportable 04/22/21 04:52 Macrocytosis Not Reportable 04/22/21 04:52 Spherocytes Not Reportable 04/22/21 04:52 Pappenheimer Bodies Not Reportable 04/22/21 04:52 Sickle Cells Not Reportable 04/22/21 04:52 Target Cells Not Reportable 04/22/21 04:52 Tear Drop Cells Not Reportable 04/22/21 04:52 Ovalocytes Not Reportable 04/22/21 04:52 Helmet Cells Not Reportable 04/22/21 04:52 [place] Bodies Not Reportable 04/22/21 04:52 [place] Rings Not Reportable 04/22/21 04:52 [place] Cells Not Reportable 04/22/21 04:52 Bite Cells Not Reportable 04/22/21 04:52 Crenated Cell Not Reportable 04/22/21 04:52 Elliptocytes Not Reportable 04/22/21 04:52 Acanthocytes (Spur) Not Reportable 04/22/21 04:52 Rouleaux Not Reportable 04/22/21 04:52 Hemoglobin C Crystals Not Reportable 04/22/21 04:52 Schistocytes Not Reportable 04/22/21 04:52 Malaria parasites Not Reportable 04/22/21 04:52 Herrera Bodies Not Reportable 04/22/21 04:52 Hem Pathologist Commnt No 04/22/21 04:52 ABG pH 7.486 pH Units (7.350-7.450) H 04/21/21 15:47 ABG pCO2 31.6 mm Hg 04/21/21 15:47 ABG pO2 168.1 mm Hg (80.0-90.0) H 04/21/21 15:47 ABG HCO3 23.3 mmol/L (20.0-26.0) 04/21/21 15:47 ABG O2 Saturation 99.1 % (95.0-99.0) H 04/21/21 15:47 ABG O2 Content 12.7 (0.0-44) 04/21/21 15:47 ABG Base Excess 0.3 mmol/L (-2.0-3.0) 04/21/21 15:47 ABG Hemoglobin 8.9 gm/dl (12.0-16.0) L 04/21/21 15:47 ABG Carboxyhemoglobin 1.0 % (0.0-5.0) 04/21/21 15:47 ABG Methemoglobin 0.6 % (0.0-1.5) 04/21/21 15:47 VBG pH 7.397 (7.320-7.420) 04/20/21 17:10 Oxyhemoglobin 97.5 % (95.0-99.0) 04/21/21 15:47 FiO2 100 % 04/21/21 15:47 Sodium 169 mmol/L (137-145) H* 04/22/21 08:59 Potassium 3.5 mmol/L (3.6-5.0) L 04/22/21 08:59 Chloride 134.5 mmol/L (98-107) H 04/22/21 08:59 Carbon Dioxide 20 mmol/L (22-30) L 04/22/21 08:59 Anion Gap 19 mmol/L 04/22/21 08:59 BUN 95 mg/dL (7-17) H 04/22/21 08:59 Creatinine 3.6 mg/dL (0.6-1.2) H 04/22/21 08:59 Estimated GFR 15 ml/min 04/22/21 08:59 BUN/Creatinine Ratio 26 % 04/22/21 08:59 Glucose 151 mg/dL (65-100) H 04/22/21 08:59 POC Glucose 154 mg/dL (70-105) H 04/22/21 14:16 Lactic Acid 1.90 mmol/L (0.7-2.0) 04/20/21 19:56 Calcium 8.5 mg/dL (8.4-10.2) 04/22/21 08:59 Phosphorus 4.20 mg/dL (2.5-4.5) 04/22/21 04:52 Magnesium 3.50 mg/dL (1.7-2.3) H 04/20/21 22:58 Total Bilirubin 0.50 mg/dL (0.1-1.2) 04/22/21 08:59 AST 121 units/L (5-40) H 04/22/21 08:59 ALT 75 units/L (7-56) H 04/22/21 08:59 Alkaline Phosphatase 137 units/L (35-129) H 04/22/21 08:59 Ammonia 29.0 umol/L (25-60) 04/20/21 17:10 Total Creatine Kinase 3105 units/L (30-135) H 04/22/21 08:59 CK-MB (CK-2) 36.0 ng/mL (0.0-4.0) H 04/20/21 17:10 CK-MB (CK-2) Rel Index 0.9 (0-4) 04/20/21 17:10 Troponin T 0.021 ng/mL (0.00-0.029) 04/20/21 17:10 Total Protein 6.0 g/dL (6.3-8.2) L 04/22/21 08:59 Albumin 2.1 g/dL (3.9-5) L 04/22/21 08:59 Albumin/Globulin Ratio 0.5 % 04/22/21 08:59 TSH 6.040 mlU/mL (0.270-4.200) H 04/20/21 17:10 Free T4 0.93 ng/dL (0.76-1.46) 04/20/21 17:10 Urine Color Yellow (Yellow) 04/20/21 Unknown Urine Turbidity Slightly-cloudy (Clear) 04/20/21 Unknown Urine pH 5.0 (5.0-7.0) 04/20/21 Unknown Ur Specific [place] 1.016 (1.003-1.030) 04/20/21 Unknown Urine Protein <15 mg/dl mg/dL (Negative) 04/20/21 Unknown Urine Glucose (UA) >=500 mg/dL (Negative) 04/20/21 Unknown Urine Ketones Tr mg/dL (Negative) 04/20/21 Unknown Urine Blood Mod (Negative) 04/20/21 Unknown Urine Nitrite Neg (Negative) 04/20/21 Unknown Urine Bilirubin Neg (Negative) 04/20/21 Unknown Urine Urobilinogen < 2.0 mg/dL (<2.0) 04/20/21 Unknown Ur Leukocyte Esterase Neg (Negative) 04/20/21 Unknown Urine WBC (Auto) 3.0 /HPF (0.0-6.0) 04/20/21 Unknown Urine RBC (Auto) 1.0 /HPF (0.0-6.0) 04/20/21 Unknown Urine Mucus Few /HPF 04/20/21 Unknown Urine Osmolality 446 Mosm/kg 04/21/21 08:01 Urine Creatinine 44.3 mg/dL (0.1-20.0) H 04/21/21 08:01 Urine Sodium 71 mmol/L 04/21/21 08:01 Urine Total Protein 12 mg/dL (5-11.8) H 04/21/21 08:01 Plasma/Serum Alcohol < 0.01 % (0-0.07) 04/20/21 17:10 Coronavirus (PCR) Negative (Negative) 04/21/21 Unknown Microbiology: Microbiology 04/21/21 14:04 Peripheral/Venous Blood Culture - Preliminary NO GROWTH AFTER 24 HOURS 04/21/21 14:04 Peripheral/Venous Blood Culture - Preliminary NO GROWTH AFTER 24 HOURS Luther/IV: Voiding Method Indwelling Catheter Active Medications - Current Medications Current Medications: Generic Name Dose Route Start Last Admin Trade Name Freq PRN Reason Stop Dose Admin Acetaminophen 650 mg 04/20/21 21:31 Acetaminophen 325 Mg Tab PO Q4H PRN Pain MILD(1-3)/Fever >100.5/TURCIOS Albuterol 2.5 mg 04/22/21 14:49 Albuterol 2.5 Mg/3 Ml Nebu IH Q4HRT PRN Shortness Of Breath Dextrose 0 ml 04/20/21 21:46 04/21/21 11:15 Dextrose 50% In Water (25gm) 50 Ml Syringe IV 15 ml Q30MIN PRN Administration Hypoglycemia Protocol Famotidine 20 mg 04/21/21 18:00 04/22/21 09:20 Famotidine 20 Mg/2 Ml Inj IV 20 mg QDAY AZIZA Administration Heparin Sodium (Porcine) 5,000 unit 04/20/21 22:00 04/22/21 09:20 Heparin 5,000 Unit/1 Ml Vial SUB-Q 5,000 unit Q12HR AZIZA Administration Insulin Human Regular 100 100 mls @ 1 mls/hr 04/20/21 22:00 04/22/21 14:19 units/ Sodium Chloride IV 8 units/hr TITR AZIZA 8 mls/hr Titration Protocol 1 UNITS/HR Dextrose 1,000 mls @ 125 mls/hr 04/21/21 02:00 04/22/21 14:18 D5w IV 125 mls/hr DIRECT AZIZA Administration Ceftriaxone Sodium 1 gm in 50 mls @ 100 mls/hr 04/21/21 09:00 04/22/21 09:20 Rocephin/Ns 1 Gm/50 Ml IV 100 mls/hr Q24H AZIZA Administration Protocol Metoclopramide HCl 5 mg 04/20/21 21:31 Metoclopramide 10 Mg/2 Ml Inj IV Q6H PRN Nausea And Vomiting Morphine Sulfate 2 mg 04/20/21 21:31 Morphine 2 Mg/1 Ml Inj IV Q4H PRN Pain, Moderate (4-6) Ondansetron HCl 4 mg 04/20/21 21:31 Ondansetron 4 Mg/2 Ml Inj IV Q8H PRN Nausea And Vomiting Sodium Chloride 10 ml 04/20/21 22:00 04/22/21 09:20 Sodium Chloride 0.9% 10 Ml Flush Syringe IV 10 ml BID AZIZA Administration Sodium Chloride 10 ml 04/20/21 21:31 Sodium Chloride 0.9% 10 Ml Flush Syringe IV PRN PRN LINE FLUSH Nutrition/Malnutrition Assess - Dietary Evaluation Nutrition/Malnutrition Findings: Nutrition Notes Start: 04/21/21 12:15 Freq: Status: Active Protocol: Document 04/21/21 12:16 JOSE (Rec: 04/21/21 12:37 JOSE [email or web address]) Nutrition Notes Need for Assessment generated from: MD Order,Education,Low BMI Initial or Follow up Assessment Current Diagnosis Acute Kidney Injury Other Pertinent Diagnosis M Encephalopathy, Hyperosmolar state, Rabdomyolysis, Leukocytosis, Dementia Current Diet Cardiac (since B 04/21). Labs/Tests 04/21: Na 179, K 2.9, Cl 138.2 , CO2 20, BUN 111, Crea 3.7, Glu 465, AST 73, ALT 61, AlkPhos 144, Alb 2.5. Pertinent Medications 04/21: D50w (25 mg) Q 30 min PRN, D5w 1000 ml @ 125 ml/hr, insulin, others nutritionally unremarkable. Height 5 ft 2 in Weight 45.359 kg [place] Body Weight (kg) 50.00 BMI 18.3 Weight change and time frame None reported at admission. Weight Status Underweight Subjective/Other Information RD consult for Nutrition Education and Low BMI assessment. Pt is unresponsive, Pt lives at SNF, Pt is not a candidate for Nutrition Education. Pt's Low BMI appears to be a natural condition, and not a consequence of sullen loss of body weight nor malnutrition. Percent of energy/protein needs met: Prescribed Cardiac Diet provides for energy/protein needs (2,230 Kcal/85 g) during LOS. Burn Absent Trauma Absent GI Symptoms None Food Allergy No Skin Integrity/Comment Clear, warm, dry. Minimum of two criteria No Is patient on ventilator? No Is Patient Ambulatory and/or Out of Bed Yes REE-([facility]-ambulatory/OOB) [ [id number] [id number]] Calculation Used for Recommendations [facility] Additional Notes Protein: 1-1.2 g/Kg; 45-54 g/ day. Fluids: 1 ml/Kcal, or as per MD. Nutrition Intervention Change Diet Order: Continue Cardiac Diet. Revisit per MD consult or patient Sign Off request: Additional Comments Continue monitoring food tolerance, %PO intake of meals , and BM.
[2021-04-22] MEDS ORDERED: EPINEPHrine RACEMIC 2.25% 0.5ML NEBU IH NR (15:04)
[2021-04-22] MEDS ORDERED: POTASSIUM CHLORIDE 20 MEQ PACKET FEEDTUBE ONE ×2 (15:30→17:37)
[2021-04-22] MEDS ORDERED: LIPASE 10,500/PROTEASE 25,000/AMYLASE 43,750 (UNITS) DR CAP FEEDTUBE PRN (16:30)
[2021-04-22] MEDS ORDERED: SODIUM BICARBONATE 325 MG TAB FEEDTUBE PRN (16:30)
[2021-04-22] MEDS ORDERED: SIMPLE SYRUP 15 ML FEEDTUBE PRN ×2 (16:30)
[2021-04-22] MEDS: INSULIN REGULAR, HUMAN 100 UNITS/1 ML SUB-Q SCH (17:34)
[2021-04-22] MEDS: INSULIN NPH/REGULAR 70/30 INJ SUB-Q SCH (17:46)
[2021-04-22 18:57] LABS: Calcium 8.5 mg/dL (8.4-10.2)
--- NOTE | 2021-04-22 23:22 | Progress Note ---
Assessment and Plan Imp: 1. Hyperosmolar non-ketotic state with volume depletion and hypernatremia 2. Metabolic enceph. 3. SYED 4. Acute respiratory failure, hypoxia 5. Thrombocytopenia Rec: 1. Cont. Insulin and hypotonic IVFs 2. Avoid any sedating meds 3. Aspiration precautions/elevated HOB 4. TFs; NPO otherwise until mentation improves 5. Agree w/ empiric Rocephin; f/u blood cultures and monitor temp/WBCs 6. Monitor platelets; SCDs 7. Neurology/NSGY f/u re: CT head findings 8. Echo 9. Prognosis guarded; CCT 31 minutes; no family present Subjective Date of service: 04/22/21 Principal diagnosis: Acute respiratory failure Interval history: No events. On VM 50% FiO2. Moans but is otherwise poorly responsive. Active Medications Acetaminophen (Acetaminophen 325 Mg Tab) 650 mg PO Q4H PRN PRN Reason: Pain MILD(1-3)/Fever >100.5/TURCIOS Albuterol (Albuterol 2.5 Mg/3 Ml Nebu) 2.5 mg IH Q4HRT PRN PRN Reason: Shortness Of Breath Lipase/Protease/Amylase (Lipase 10,500/Protease 25,000/Amylase 43,750 (Units) Dr Vasquez) 1 each FEEDTUBE PRN PRN PRN Reason: For Clogged Feeding Tube Dextrose (Dextrose 50% In Water (25gm) 50 Ml Syringe) 50 ml IV Q30MIN PRN; Protocol PRN Reason: Hypoglycemia Famotidine (Famotidine 20 Mg/2 Ml Inj) 20 mg IV QDAY [facility] Last Admin: 04/23/21 09:00 Dose: 20 mg Documented by: Dextrose (D5w) 1,000 mls @ 125 mls/hr IV DIRECT AZIZA Last Admin: 04/22/21 14:18 Dose: 125 mls/hr Documented by: Ceftriaxone Sodium (Rocephin/Ns 1 Gm/50 Ml) 1 gm in 50 mls @ 100 mls/hr IV Q24H AZIZA; Protocol Last Admin: 04/23/21 09:00 Dose: 100 mls/hr Documented by: Insulin Human Isoph/Insulin Regular (Insulin Nph/Regular 70/30 Inj) 15 unit SUB-Q BIDDIAB [facility] Last Admin: 04/23/21 09:00 Dose: 15 unit Documented by: Insulin Human Regular (Insulin Regular, Human 100 Units/1 Ml) 0 units SUB-Q Q6H [facility]; Protocol Last Admin: 04/23/21 06:08 Dose: 3 units Documented by: Metoclopramide HCl (Metoclopramide 10 Mg/2 Ml Inj) 5 mg IV Q6H PRN PRN Reason: Nausea And Vomiting Morphine Sulfate (Morphine 2 Mg/1 Ml Inj) 2 mg IV Q4H PRN PRN Reason: Pain, Moderate (4-6) Ondansetron HCl (Ondansetron 4 Mg/2 Ml Inj) 4 mg IV Q8H PRN PRN Reason: Nausea And Vomiting Simple Syrup (Simple Syrup 15 Ml) 15 ml FEEDTUBE PRN PRN PRN Reason: Hypoglycemia Simple Syrup (Simple Syrup 15 Ml) 30 ml FEEDTUBE PRN PRN PRN Reason: Hypoglycemia Sodium Bicarbonate (Sodium Bicarbonate 325 Mg Tab) 325 mg FEEDTUBE PRN PRN PRN Reason: For Clogged Feeding Tube Sodium Chloride (Sodium Chloride 0.9% 10 Ml Flush Syringe) 10 ml IV BID [facility] Last Admin: 04/23/21 09:01 Dose: 10 ml Documented by: Sodium Chloride (Sodium Chloride 0.9% 10 Ml Flush Syringe) 10 ml IV PRN PRN PRN Reason: LINE FLUSH Objective Vital Signs - 12hr 04/22/21 04/22/21 04/22/21 11:24 11:30 11:40 Temperature Pulse Rate 99 H 101 H 102 H Pulse Rate [ Anterior Bilateral Upper Lobe] Pulse Rate [ 99 H Right Radial] Respiratory 32 H 33 H 35 H Rate Respiratory Rate [Anterior Bilateral Upper Lobe] Blood Pressure 100/53 100/53 O2 Sat by Pulse 96 89 97 Oximetry 04/22/21 04/22/21 04/22/21 11:50 12:00 12:10 Temperature 98.1 F Pulse Rate 100 H 79 104 H Pulse Rate [ Anterior Bilateral Upper Lobe] Pulse Rate [ Right Radial] Respiratory 34 H 32 H 34 H Rate Respiratory Rate [Anterior Bilateral Upper Lobe] Blood Pressure 100/53 104/47 104/47 O2 Sat by Pulse 97 92 97 Oximetry 04/22/21 04/22/21 04/22/21 12:20 12:30 12:40 Temperature Pulse Rate 106 H 103 H 102 H Pulse Rate [ Anterior Bilateral Upper Lobe] Pulse Rate [ Right Radial] Respiratory 35 H 32 H 33 H Rate Respiratory Rate [Anterior Bilateral Upper Lobe] Blood Pressure 104/47 106/47 106/47 O2 Sat by Pulse 95 90 94 Oximetry 04/22/21 04/22/21 04/22/21 12:50 13:00 13:10 Temperature Pulse Rate 103 H 105 H 106 H Pulse Rate [ Anterior Bilateral Upper Lobe] Pulse Rate [ Right Radial] Respiratory 32 H 34 H 30 H Rate Respiratory Rate [Anterior Bilateral Upper Lobe] Blood Pressure 106/47 110/50 110/50 O2 Sat by Pulse 93 90 93 Oximetry 04/22/21 04/22/21 04/22/21 13:20 13:30 13:40 Temperature Pulse Rate 103 H 105 H 104 H Pulse Rate [ Anterior Bilateral Upper Lobe] Pulse Rate [ Right Radial] Respiratory 26 H 27 H 30 H Rate Respiratory Rate [Anterior Bilateral Upper Lobe] Blood Pressure 110/50 94/49 94/49 O2 Sat by Pulse 96 91 96 Oximetry 04/22/21 04/22/21 04/22/21 13:50 14:00 14:10 Temperature Pulse Rate 104 H 103 H 101 H Pulse Rate [ Anterior Bilateral Upper Lobe] Pulse Rate [ Right Radial] Respiratory 29 H 25 H 30 H Rate Respiratory Rate [Anterior Bilateral Upper Lobe] Blood Pressure 94/49 114/59 114/59 O2 Sat by Pulse 100 98 100 Oximetry 04/22/21 04/22/21 04/22/21 14:20 14:30 14:40 Temperature Pulse Rate 109 H 111 H 109 H Pulse Rate [ Anterior Bilateral Upper Lobe] Pulse Rate [ Right Radial] Respiratory 26 H 31 H 24 Rate Respiratory Rate [Anterior Bilateral Upper Lobe] Blood Pressure 114/59 134/67 134/67 O2 Sat by Pulse 97 97 96 Oximetry 04/22/21 04/22/21 04/22/21 14:50 15:00 15:09 Temperature Pulse Rate 112 H 111 H Pulse Rate [ 113 H Anterior Bilateral Upper Lobe] Pulse Rate [ Right Radial] Respiratory 25 H 23 Rate Respiratory 24 Rate [Anterior Bilateral Upper Lobe] Blood Pressure 134/67 114/60 O2 Sat by Pulse 96 90 96 Oximetry 04/22/21 04/22/21 04/22/21 15:10 15:20 15:30 Temperature Pulse Rate 112 H 114 H Pulse Rate [ Anterior Bilateral Upper Lobe] Pulse Rate [ Right Radial] Respiratory 24 27 H Rate Respiratory Rate [Anterior Bilateral Upper Lobe] Blood Pressure 114/60 114/60 99/57 O2 Sat by Pulse 96 93 91 Oximetry 04/22/21 04/22/21 04/22/21 15:40 15:50 16:00 Temperature 99.6 F Pulse Rate 113 H 110 H 99 H Pulse Rate [ Anterior Bilateral Upper Lobe] Pulse Rate [ 113 H Right Radial] Respiratory 32 H 29 H 31 H Rate Respiratory Rate [Anterior Bilateral Upper Lobe] Blood Pressure 99/57 99/57 98/54 O2 Sat by Pulse 93 93 84 Oximetry 04/22/21 04/22/21 04/22/21 16:10 16:20 16:30 Temperature Pulse Rate 109 H 108 H 110 H Pulse Rate [ Anterior Bilateral Upper Lobe] Pulse Rate [ Right Radial] Respiratory 28 H 29 H 30 H Rate Respiratory Rate [Anterior Bilateral Upper Lobe] Blood Pressure 98/54 98/54 97/47 O2 Sat by Pulse 89 90 83 L Oximetry 04/22/21 04/22/21 04/22/21 16:40 16:50 17:00 Temperature Pulse Rate 117 H 109 H 109 H Pulse Rate [ Anterior Bilateral Upper Lobe] Pulse Rate [ Right Radial] Respiratory 31 H 31 H 30 H Rate Respiratory Rate [Anterior Bilateral Upper Lobe] Blood Pressure 97/47 97/47 104/53 O2 Sat by Pulse 90 91 84 Oximetry 04/22/21 04/22/21 04/22/21 17:10 17:20 17:30 Temperature Pulse Rate 111 H 117 H 115 H Pulse Rate [ Anterior Bilateral Upper Lobe] Pulse Rate [ Right Radial] Respiratory 30 H 34 H 33 H Rate Respiratory Rate [Anterior Bilateral Upper Lobe] Blood Pressure 104/53 104/53 106/49 O2 Sat by Pulse 91 92 84 Oximetry 04/22/21 04/22/21 04/22/21 17:40 17:50 18:00 Temperature Pulse Rate 110 H 109 H 115 H Pulse Rate [ Anterior Bilateral Upper Lobe] Pulse Rate [ Right Radial] Respiratory 31 H 32 H 34 H Rate Respiratory Rate [Anterior Bilateral Upper Lobe] Blood Pressure 106/49 106/49 101/44 O2 Sat by Pulse 91 91 87 Oximetry 04/22/21 04/22/21 04/22/21 18:10 18:20 18:30 Temperature Pulse Rate 119 H 121 H 121 H Pulse Rate [ Anterior Bilateral Upper Lobe] Pulse Rate [ Right Radial] Respiratory 34 H 36 H 33 H Rate Respiratory Rate [Anterior Bilateral Upper Lobe] Blood Pressure 101/44 101/44 105/46 O2 Sat by Pulse 95 96 88 Oximetry 04/22/21 04/22/21 04/22/21 18:40 18:50 19:00 Temperature Pulse Rate 122 H 121 H 125 H Pulse Rate [ Anterior Bilateral Upper Lobe] Pulse Rate [ Right Radial] Respiratory 34 H 33 H 36 H Rate Respiratory Rate [Anterior Bilateral Upper Lobe] Blood Pressure 105/46 105/46 124/61 O2 Sat by Pulse 93 92 87 Oximetry 04/22/21 04/22/21 04/22/21 19:10 19:20 19:30 Temperature Pulse Rate 124 H 124 H 124 H Pulse Rate [ Anterior Bilateral Upper Lobe] Pulse Rate [ Right Radial] Respiratory 32 H 33 H 32 H Rate Respiratory Rate [Anterior Bilateral Upper Lobe] Blood Pressure 124/61 124/61 123/56 O2 Sat by Pulse 93 93 86 Oximetry 04/22/21 04/22/21 04/22/21 19:40 19:49 19:50 Temperature Pulse Rate 122 H 123 H Pulse Rate [ Anterior Bilateral Upper Lobe] Pulse Rate [ Right Radial] Respiratory 31 H 32 H Rate Respiratory Rate [Anterior Bilateral Upper Lobe] Blood Pressure 123/56 123/56 O2 Sat by Pulse 93 94 94 Oximetry 04/22/21 04/22/21 04/22/21 20:00 20:10 20:20 Temperature 100.1 F H Pulse Rate 123 H 124 H 123 H Pulse Rate [ Anterior Bilateral Upper Lobe] Pulse Rate [ 123 H Right Radial] Respiratory 30 H 31 H 32 H Rate Respiratory Rate [Anterior Bilateral Upper Lobe] Blood Pressure 116/55 116/55 116/55 O2 Sat by Pulse 93 93 93 Oximetry 04/22/21 04/22/21 04/22/21 20:30 20:40 20:50 Temperature Pulse Rate 122 H 121 H 120 H Pulse Rate [ Anterior Bilateral Upper Lobe] Pulse Rate [ Right Radial] Respiratory 31 H 30 H 30 H Rate Respiratory Rate [Anterior Bilateral Upper Lobe] Blood Pressure 115/53 115/53 115/53 O2 Sat by Pulse 85 93 93 Oximetry 04/22/21 04/22/21 04/22/21 21:00 21:10 21:20 Temperature Pulse Rate 121 H 124 H 120 H Pulse Rate [ Anterior Bilateral Upper Lobe] Pulse Rate [ Right Radial] Respiratory 30 H 30 H 30 H Rate Respiratory Rate [Anterior Bilateral Upper Lobe] Blood Pressure 111/58 111/58 111/58 O2 Sat by Pulse 88 95 92 Oximetry 04/22/21 04/22/21 04/22/21 21:30 21:40 21:50 Temperature Pulse Rate 119 H 120 H 124 H Pulse Rate [ Anterior Bilateral Upper Lobe] Pulse Rate [ Right Radial] Respiratory 36 H 30 H 37 H Rate Respiratory Rate [Anterior Bilateral Upper Lobe] Blood Pressure 123/54 123/54 123/54 O2 Sat by Pulse 87 91 92 Oximetry 04/22/21 04/22/21 04/22/21 22:00 22:10 22:20 Temperature Pulse Rate 119 H 117 H 118 H Pulse Rate [ Anterior Bilateral Upper Lobe] Pulse Rate [ Right Radial] Respiratory 32 H 30 H 30 H Rate Respiratory Rate [Anterior Bilateral Upper Lobe] Blood Pressure 115/64 115/64 115/64 O2 Sat by Pulse 83 L 92 91 Oximetry 04/22/21 22:30 Temperature Pulse Rate 115 H Pulse Rate [ Anterior Bilateral Upper Lobe] Pulse Rate [ Right Radial] Respiratory 29 H Rate Respiratory Rate [Anterior Bilateral Upper Lobe] Blood Pressure 109/58 O2 Sat by Pulse 86 Oximetry Constitutional: other (critically ill, somnolent) Eyes: non-icteric ENT: oropharynx dry Effort: other (tachypneic but not labored) Ascultation: Bilateral: clear Cardiovascular: regular rate and rhythm Gastrointestinal: normoactive bowel sounds, soft, non-tender, non-distended Integumentary: normal Extremities: no cyanosis, no edema, pink and warm Neurologic: unable to assess Psychiatric: other (unable to assess) CBC and BMP: 04/23/21 08:13 04/23/21 08:13 ABG, PT/INR, D-dimer: ABG ABG pH 7.486 pH Units (7.350-7.450) H 04/21/21 15:47 ABG pCO2 31.6 mm Hg 04/21/21 15:47 ABG pO2 168.1 mm Hg (80.0-90.0) H 04/21/21 15:47 ABG O2 Saturation 99.1 % (95.0-99.0) H 04/21/21 15:47 Abnormal lab findings: Abnormal Labs 04/20/21 04/20/21 04/20/21 17:10 17:10 17:10 WBC 17.4 H RBC 5.19 H Hct 46.8 H MCH 27 L RDW 17.2 H Plt Count Seg Neuts % (Manual) 98.0 H Lymphocytes % (Manual) 2.0 L Nucleated RBC % 1.0 H Seg Neutrophils # Man 17.1 H Lymphocytes # (Manual) 0.3 L ABG pH ABG pO2 ABG O2 Saturation ABG Base Excess ABG Hemoglobin Oxyhemoglobin Sodium 173 H* Potassium Chloride 132.9 H Carbon Dioxide 17 L BUN 120 H Creatinine 4.2 H Glucose 762 H* POC Glucose Hemoglobin A1c Lactic Acid Calcium Magnesium 3.80 H AST 72 H ALT 63 H Alkaline Phosphatase 148 H Total Creatine Kinase 3697 H CK-MB (CK-2) 36.0 H Total Protein Albumin 2.2 L TSH Urine Creatinine Urine Total Protein 04/20/21 04/20/21 04/20/21 17:10 17:10 18:55 WBC RBC Hct MCH RDW Plt Count Seg Neuts % (Manual) Lymphocytes % (Manual) Nucleated RBC % Seg Neutrophils # Man Lymphocytes # (Manual) ABG pH ABG pO2 ABG O2 Saturation ABG Base Excess ABG Hemoglobin Oxyhemoglobin Sodium Potassium Chloride Carbon Dioxide BUN Creatinine Glucose POC Glucose 574 H Hemoglobin A1c Lactic Acid 2.60 H* Calcium Magnesium AST ALT Alkaline Phosphatase Total Creatine Kinase CK-MB (CK-2) Total Protein Albumin TSH 6.040 H Urine Creatinine Urine Total Protein 04/20/21 04/20/21 04/21/21 22:58 22:58 00:14 WBC RBC Hct MCH RDW Plt Count Seg Neuts % (Manual) Lymphocytes % (Manual) Nucleated RBC % Seg Neutrophils # Man Lymphocytes # (Manual) ABG pH ABG pO2 ABG O2 Saturation ABG Base Excess ABG Hemoglobin Oxyhemoglobin Sodium 172 H* Potassium 3.2 L Chloride 134.2 H Carbon Dioxide 17 L BUN 112 H Creatinine 3.8 H Glucose 803 H* POC Glucose > 600 H Hemoglobin A1c Lactic Acid Calcium 8.3 L Magnesium 3.50 H AST ALT Alkaline Phosphatase Total Creatine Kinase CK-MB (CK-2) Total Protein Albumin TSH Urine Creatinine Urine Total Protein 04/21/21 04/21/21 04/21/21 00:22 02:01 03:11 WBC RBC Hct MCH RDW Plt Count Seg Neuts % (Manual) Lymphocytes % (Manual) Nucleated RBC % Seg Neutrophils # Man Lymphocytes # (Manual) ABG pH ABG pO2 ABG O2 Saturation ABG Base Excess ABG Hemoglobin Oxyhemoglobin Sodium 176 H* 175 H* Potassium 2.9 L* 3.0 L Chloride 139.9 H 136.2 H Carbon Dioxide 17 L 19 L BUN 113 H 112 H Creatinine 3.9 H 3.6 H Glucose 729 H* 582 H* POC Glucose 404 H Hemoglobin A1c Lactic Acid Calcium Magnesium AST ALT Alkaline Phosphatase Total Creatine Kinase CK-MB (CK-2) Total Protein Albumin TSH Urine Creatinine Urine Total Protein 04/21/21 04/21/21 04/21/21 03:20 03:41 03:41 WBC 14.1 H RBC Hct MCH 27 L RDW 16.8 H Plt Count 114 L Seg Neuts % (Manual) 97.0 H Lymphocytes % (Manual) 3.0 L Nucleated RBC % 1.0 H Seg Neutrophils # Man 13.7 H Lymphocytes # (Manual) 0.4 L ABG pH ABG pO2 52.3 L ABG O2 Saturation 84.5 L ABG Base Excess -2.9 L ABG Hemoglobin Oxyhemoglobin 82.9 L Sodium 179 H* Potassium 2.9 L* Chloride 138.2 H Carbon Dioxide 20 L BUN 111 H Creatinine 3.7 H Glucose 465 H POC Glucose Hemoglobin A1c Lactic Acid Calcium Magnesium AST 73 H ALT 61 H Alkaline Phosphatase 144 H Total Creatine Kinase CK-MB (CK-2) Total Protein Albumin 2.5 L TSH Urine Creatinine Urine Total Protein 04/21/21 04/21/21 04/21/21 04:24 05:45 06:47 WBC RBC Hct MCH RDW Plt Count Seg Neuts % (Manual) Lymphocytes % (Manual) Nucleated RBC % Seg Neutrophils # Man Lymphocytes # (Manual) ABG pH ABG pO2 ABG O2 Saturation ABG Base Excess ABG Hemoglobin Oxyhemoglobin Sodium Potassium Chloride Carbon Dioxide BUN Creatinine Glucose POC Glucose 353 H 280 H 260 H Hemoglobin A1c Lactic Acid Calcium Magnesium AST ALT Alkaline Phosphatase Total Creatine Kinase CK-MB (CK-2) Total Protein Albumin TSH Urine Creatinine Urine Total Protein 04/21/21 04/21/21 04/21/21 08:01 11:11 12:51 WBC RBC Hct MCH RDW Plt Count Seg Neuts % (Manual) Lymphocytes % (Manual) Nucleated RBC % Seg Neutrophils # Man Lymphocytes # (Manual) ABG pH ABG pO2 ABG O2 Saturation ABG Base Excess ABG Hemoglobin Oxyhemoglobin Sodium Potassium Chloride Carbon Dioxide BUN Creatinine Glucose POC Glucose 68 L 146 H Hemoglobin A1c Lactic Acid Calcium Magnesium AST ALT Alkaline Phosphatase Total Creatine Kinase CK-MB (CK-2) Total Protein Albumin TSH Urine Creatinine 44.3 H Urine Total Protein 12 H 04/21/21 04/21/21 04/21/21 14:40 15:47 16:25 WBC RBC Hct MCH RDW Plt Count Seg Neuts % (Manual) Lymphocytes % (Manual) Nucleated RBC % Seg Neutrophils # Man Lymphocytes # (Manual) ABG pH 7.486 H ABG pO2 168.1 H ABG O2 Saturation 99.1 H ABG Base Excess ABG Hemoglobin 8.9 L Oxyhemoglobin Sodium Potassium Chloride Carbon Dioxide BUN Creatinine Glucose POC Glucose 186 H 172 H Hemoglobin A1c Lactic Acid Calcium Magnesium AST ALT Alkaline Phosphatase Total Creatine Kinase CK-MB (CK-2) Total Protein Albumin TSH Urine Creatinine Urine Total Protein 04/21/21 04/21/21 04/21/21 17:57 18:49 19:10 WBC RBC Hct MCH RDW Plt Count Seg Neuts % (Manual) Lymphocytes % (Manual) Nucleated RBC % Seg Neutrophils # Man Lymphocytes # (Manual) ABG pH ABG pO2 ABG O2 Saturation ABG Base Excess ABG Hemoglobin Oxyhemoglobin Sodium 174 H* Potassium 7.2 H* D Chloride 138.2 H Carbon Dioxide 21 L BUN 99 H Creatinine 4.0 H Glucose 157 H POC Glucose 143 H 126 H Hemoglobin A1c Lactic Acid Calcium Magnesium AST 134 H ALT 71 H Alkaline Phosphatase 135 H Total Creatine Kinase 3504 H CK-MB (CK-2) Total Protein Albumin 2.2 L TSH Urine Creatinine Urine Total Protein 04/21/21 04/21/21 04/21/21 20:26 20:53 21:52 WBC RBC Hct MCH RDW Plt Count Seg Neuts % (Manual) Lymphocytes % (Manual) Nucleated RBC % Seg Neutrophils # Man Lymphocytes # (Manual) ABG pH ABG pO2 ABG O2 Saturation ABG Base Excess ABG Hemoglobin Oxyhemoglobin Sodium Potassium Chloride Carbon Dioxide BUN Creatinine Glucose POC Glucose 190 H 116 H 135 H Hemoglobin A1c Lactic Acid Calcium Magnesium AST ALT Alkaline Phosphatase Total Creatine Kinase CK-MB (CK-2) Total Protein Albumin TSH Urine Creatinine Urine Total Protein 04/21/21 04/21/21 04/22/21 22:55 23:00 00:01 WBC RBC Hct MCH RDW Plt Count Seg Neuts % (Manual) Lymphocytes % (Manual) Nucleated RBC % Seg Neutrophils # Man Lymphocytes # (Manual) ABG pH ABG pO2 ABG O2 Saturation ABG Base Excess ABG Hemoglobin Oxyhemoglobin Sodium 176 H* Potassium Chloride 140.0 H Carbon Dioxide 20 L BUN 98 H Creatinine 3.9 H Glucose 206 H POC Glucose 158 H 182 H Hemoglobin A1c Lactic Acid Calcium Magnesium AST ALT Alkaline Phosphatase Total Creatine Kinase 3240 H CK-MB (CK-2) Total Protein Albumin TSH Urine Creatinine Urine Total Protein 04/22/21 04/22/21 04/22/21 00:39 00:58 01:04 WBC RBC Hct MCH RDW Plt Count Seg Neuts % (Manual) Lymphocytes % (Manual) Nucleated RBC % Seg Neutrophils # Man Lymphocytes # (Manual) ABG pH ABG pO2 ABG O2 Saturation ABG Base Excess ABG Hemoglobin Oxyhemoglobin Sodium 171 H* Potassium Chloride Carbon Dioxide BUN Creatinine Glucose POC Glucose 176 H 143 H Hemoglobin A1c Lactic Acid Calcium Magnesium AST ALT Alkaline Phosphatase Total Creatine Kinase CK-MB (CK-2) Total Protein Albumin TSH Urine Creatinine Urine Total Protein 04/22/21 04/22/21 04/22/21 04:52 06:07 06:09 WBC 11.2 H RBC Hct 44.3 H MCH 27 L RDW 17.1 H Plt Count 86 L Seg Neuts % (Manual) 86.0 H Lymphocytes % (Manual) 13.0 L Nucleated RBC % Seg Neutrophils # Man 9.6 H Lymphocytes # (Manual) ABG pH ABG pO2 ABG O2 Saturation ABG Base Excess ABG Hemoglobin Oxyhemoglobin Sodium Potassium Chloride Carbon Dioxide BUN Creatinine Glucose POC Glucose 206 H 163 H Hemoglobin A1c Lactic Acid Calcium Magnesium AST ALT Alkaline Phosphatase Total Creatine Kinase CK-MB (CK-2) Total Protein Albumin TSH Urine Creatinine Urine Total Protein 04/22/21 04/22/21 04/22/21 07:18 08:59 08:59 WBC RBC Hct MCH RDW Plt Count Seg Neuts % (Manual) Lymphocytes % (Manual) Nucleated RBC % Seg Neutrophils # Man Lymphocytes # (Manual) ABG pH ABG pO2 ABG O2 Saturation ABG Base Excess ABG Hemoglobin Oxyhemoglobin Sodium 169 H* Potassium 3.5 L Chloride 134.5 H Carbon Dioxide 20 L BUN 95 H Creatinine 3.6 H Glucose 151 H POC Glucose 158 H Hemoglobin A1c Lactic Acid Calcium Magnesium AST 121 H ALT 75 H Alkaline Phosphatase 137 H Total Creatine Kinase 3105 H CK-MB (CK-2) Total Protein 6.0 L Albumin 2.1 L TSH Urine Creatinine Urine Total Protein 04/22/21 04/22/21 04/22/21 10:24 12:20 13:19 WBC RBC Hct MCH RDW Plt Count Seg Neuts % (Manual) Lymphocytes % (Manual) Nucleated RBC % Seg Neutrophils # Man Lymphocytes # (Manual) ABG pH ABG pO2 ABG O2 Saturation ABG Base Excess ABG Hemoglobin Oxyhemoglobin Sodium Potassium Chloride Carbon Dioxide BUN Creatinine Glucose POC Glucose 107 H 131 H 147 H Hemoglobin A1c Lactic Acid Calcium Magnesium AST ALT Alkaline Phosphatase Total Creatine Kinase CK-MB (CK-2) Total Protein Albumin TSH Urine Creatinine Urine Total Protein 04/22/21 04/22/21 04/22/21 14:16 15:22 15:55 WBC RBC Hct MCH RDW Plt Count Seg Neuts % (Manual) Lymphocytes % (Manual) Nucleated RBC % Seg Neutrophils # Man Lymphocytes # (Manual) ABG pH ABG pO2 ABG O2 Saturation ABG Base Excess ABG Hemoglobin Oxyhemoglobin Sodium 169 H* Potassium Chloride 133.5 H Carbon Dioxide 19 L BUN 94 H Creatinine 3.8 H Glucose 150 H POC Glucose 154 H 136 H Hemoglobin A1c Lactic Acid Calcium Magnesium AST ALT Alkaline Phosphatase Total Creatine Kinase CK-MB (CK-2) Total Protein Albumin TSH Urine Creatinine Urine Total Protein 04/22/21 04/22/21 04/22/21 15:55 16:22 18:11 WBC RBC Hct MCH RDW Plt Count Seg Neuts % (Manual) Lymphocytes % (Manual) Nucleated RBC % Seg Neutrophils # Man Lymphocytes # (Manual) ABG pH ABG pO2 ABG O2 Saturation ABG Base Excess ABG Hemoglobin Oxyhemoglobin Sodium Potassium Chloride Carbon Dioxide BUN Creatinine Glucose POC Glucose 140 H Hemoglobin A1c 17.1 H Lactic Acid Calcium Magnesium AST ALT Alkaline Phosphatase Total Creatine Kinase 2497 H CK-MB (CK-2) Total Protein Albumin TSH Urine Creatinine Urine Total Protein 04/22/21 04/22/21 18:26 23:19 WBC RBC Hct MCH RDW Plt Count Seg Neuts % (Manual) Lymphocytes % (Manual) Nucleated RBC % Seg Neutrophils # Man Lymphocytes # (Manual) ABG pH ABG pO2 ABG O2 Saturation ABG Base Excess ABG Hemoglobin Oxyhemoglobin Sodium Potassium Chloride Carbon Dioxide BUN Creatinine Glucose POC Glucose 146 H 188 H Hemoglobin A1c Lactic Acid Calcium Magnesium AST ALT Alkaline Phosphatase Total Creatine Kinase CK-MB (CK-2) Total Protein Albumin TSH Urine Creatinine Urine Total Protein Chest x-ray: report reviewed, image reviewed
[2021-04-23] MEDS: INSULIN REGULAR, HUMAN 100 UNITS/1 ML SUB-Q SCH ×5 (00:13→23:41)
[2021-04-23 08:46] LABS: Mean Corpuscular HGB Conc 31 % (30-34); Mean Corpuscular Volume 86 fl (79-97); Red Blood Count 4.58 M/mm3 (3.65-5.03); Red Cell Distribution Width 16.5 % (13.2-15.2)
[2021-04-23 08:49] LABS: Hematocrit 39.4 % (30.3-42.9); Platelet Count 72 K/mm3 (140-440)
[2021-04-23] MEDS: FAMOTIDINE 20 MG/2 ML INJ IV SCH (09:00)
[2021-04-23] MEDS: INSULIN NPH/REGULAR 70/30 INJ SUB-Q SCH (09:00)
[2021-04-23] MEDS: cefTRIAXone/NS 1 GM/50 ML 1 GM/50 ML BAG IV SCH (09:00)
[2021-04-23 09:08] LABS: Calcium 8.7 mg/dL (8.4-10.2)
--- NOTE | 2021-04-23 10:19 | Progress Note ---
Assessment and Plan (1) Acute metabolic encephalopathy (2) Diabetic hyperosmolar non-ketotic state 3) SYED (acute kidney injury) (4) Dehydration (5) Hypernatremia (6) Rhabdomyolysis (7) Hypernatremia 8) GERD (gastroesophageal reflux disease) (9) Metabolic acidosis (10) Leukocytosis Continue D5W Na trending down BUN/Cr trending down. check Na every 8 hours, avoid correction more than 10 mmol/l in 24 hoursNo indication for [employer] UA bland will cont to monitor CK, trending down renally dose meds Strict I&O In ICU Subjective Date of service: 04/23/21 Interval history: Making urine. Na high Objective - Exam Narrative Exam: General appearance: cachectic EENT: mucous membranes dry Neck: Present: neck supple Respiratory: Decreased Breath Sounds Heart: tachycardia Gastrointestinal: Present: normoactive bowel sounds. Absent: tenderness, distended, masses Integumentary: no rash, warm and dry Neurologic: other (does not follow commands) Musculoskeletal: Present: other (no edema in BLE) - Vital Signs Vital signs: Vital Signs - 12hr 04/22/21 04/22/21 04/22/21 22:20 22:30 22:46 Temperature Pulse Rate 118 H 115 H 113 H Pulse Rate [ Right Radial] Respiratory 30 H 29 H 28 H Rate Blood Pressure 115/64 109/58 109/58 O2 Sat by Pulse 91 86 93 Oximetry 04/22/21 04/22/21 04/22/21 23:00 23:16 23:30 Temperature Pulse Rate 113 H 113 H 112 H Pulse Rate [ Right Radial] Respiratory 28 H 29 H 28 H Rate Blood Pressure 115/58 115/58 109/58 O2 Sat by Pulse 89 93 87 Oximetry 04/22/21 04/22/21 04/22/21 23:33 23:40 23:46 Temperature 100.4 F H Pulse Rate 110 H 112 H Pulse Rate [ Right Radial] Respiratory 28 H 28 H Rate Blood Pressure 109/58 109/58 O2 Sat by Pulse 93 92 Oximetry 04/23/21 04/23/21 04/23/21 00:00 00:16 00:30 Temperature Pulse Rate 110 H 110 H 108 H Pulse Rate [ 123 H Right Radial] Respiratory 29 H 32 H 27 H Rate Blood Pressure 110/56 110/56 106/57 O2 Sat by Pulse 90 94 89 Oximetry 04/23/21 04/23/21 04/23/21 00:46 01:00 01:16 Temperature Pulse Rate 108 H 106 H 112 H Pulse Rate [ Right Radial] Respiratory 27 H 29 H 30 H Rate Blood Pressure 106/57 115/50 115/50 O2 Sat by Pulse 92 87 94 Oximetry 04/23/21 04/23/21 04/23/21 01:30 01:46 02:00 Temperature Pulse Rate 102 H 100 H 97 H Pulse Rate [ Right Radial] Respiratory 29 H 30 H 31 H Rate Blood Pressure 97/40 97/40 96/45 O2 Sat by Pulse 89 93 82 L Oximetry 04/23/21 04/23/21 04/23/21 02:16 02:30 02:46 Temperature Pulse Rate 106 H 109 H 100 H Pulse Rate [ Right Radial] Respiratory 31 H 28 H 29 H Rate Blood Pressure 96/45 118/62 118/62 O2 Sat by Pulse 93 91 92 Oximetry 04/23/21 04/23/21 04/23/21 03:00 03:16 03:30 Temperature Pulse Rate 102 H 93 H 91 H Pulse Rate [ Right Radial] Respiratory 34 H 31 H 31 H Rate Blood Pressure 118/62 95/66 111/49 O2 Sat by Pulse 92 88 Oximetry 04/23/21 04/23/21 04/23/21 03:33 03:46 04:00 Temperature 98.7 F Pulse Rate 95 H 87 Pulse Rate [ 123 H Right Radial] Respiratory 32 H 32 H Rate Blood Pressure 111/49 100/46 O2 Sat by Pulse 95 91 Oximetry 04/23/21 04/23/21 04/23/21 04:16 04:30 04:46 Temperature Pulse Rate 84 100 H 99 H Pulse Rate [ Right Radial] Respiratory 33 H 36 H 33 H Rate Blood Pressure 100/46 100/46 128/71 O2 Sat by Pulse 99 88 95 Oximetry 04/23/21 04/23/21 04/23/21 05:00 05:16 05:30 Temperature Pulse Rate 101 H 84 84 Pulse Rate [ Right Radial] Respiratory 29 H 32 H 32 H Rate Blood Pressure 120/71 120/71 104/47 O2 Sat by Pulse 93 94 86 Oximetry 04/23/21 04/23/21 04/23/21 05:46 06:00 06:15 Temperature Pulse Rate 87 85 86 Pulse Rate [ Right Radial] Respiratory 31 H 36 H 35 H Rate Blood Pressure 104/47 104/47 102/50 O2 Sat by Pulse 96 94 94 Oximetry 04/23/21 04/23/21 04/23/21 06:30 06:45 07:00 Temperature Pulse Rate 82 81 85 Pulse Rate [ Right Radial] Respiratory 37 H 38 H 39 H Rate Blood Pressure 102/51 102/51 106/50 O2 Sat by Pulse 84 94 88 Oximetry 04/23/21 04/23/21 04/23/21 07:15 07:21 07:30 Temperature Pulse Rate 85 84 80 Pulse Rate [ Right Radial] Respiratory 38 H 37 H Rate Blood Pressure 106/50 102/50 O2 Sat by Pulse 94 85 Oximetry 04/23/21 04/23/21 04/23/21 07:45 08:00 08:15 Temperature Pulse Rate 86 85 88 Pulse Rate [ 84 Right Radial] Respiratory 38 H 35 H 32 H Rate Blood Pressure 102/50 100/55 100/55 O2 Sat by Pulse 91 89 89 Oximetry 04/23/21 04/23/21 04/23/21 08:30 08:45 09:01 Temperature Pulse Rate 85 84 86 Pulse Rate [ Right Radial] Respiratory 36 H 37 H 32 H Rate Blood Pressure 96/53 96/53 114/57 O2 Sat by Pulse 90 93 91 Oximetry 04/23/21 04/23/21 04/23/21 09:04 09:15 09:30 Temperature Pulse Rate 85 82 Pulse Rate [ Right Radial] Respiratory 35 H 35 H Rate Blood Pressure 114/57 112/59 O2 Sat by Pulse 92 91 87 Oximetry 04/23/21 04/23/21 09:45 10:00 Temperature Pulse Rate 81 80 Pulse Rate [ Right Radial] Respiratory 32 H 34 H Rate Blood Pressure 112/59 105/49 O2 Sat by Pulse 91 86 Oximetry - Lab 04/23/21 08:13 04/23/21 08:13 Most recent lab results ABG pH 7.486 pH Units (7.350-7.450) H 04/21/21 15:47 ABG pCO2 31.6 mm Hg 04/21/21 15:47 ABG pO2 168.1 mm Hg (80.0-90.0) H 04/21/21 15:47 ABG HCO3 23.3 mmol/L (20.0-26.0) 04/21/21 15:47 ABG O2 Saturation 99.1 % (95.0-99.0) H 04/21/21 15:47 Calcium 8.7 mg/dL (8.4-10.2) 04/23/21 08:13 Phosphorus 4.20 mg/dL (2.5-4.5) 04/22/21 04:52 Magnesium 3.50 mg/dL (1.7-2.3) H 04/20/21 22:58 Urine Creatinine 44.3 mg/dL (0.1-20.0) H 04/21/21 08:01 Urine Sodium 71 mmol/L 04/21/21 08:01 Urine Total Protein 12 mg/dL (5-11.8) H 04/21/21 08:01 Medications & Allergies - Medications Allergies/Adverse Reactions: Allergies No Known Allergies Allergy (Unverified 04/20/21 14:35) Active Medications: Generic Name Dose Route Start Last Admin Trade Name Freq PRN Reason Stop Dose Admin Acetaminophen 650 mg 04/20/21 21:31 Acetaminophen 325 Mg Tab PO Q4H PRN Pain MILD(1-3)/Fever >100.5/TURCIOS Albuterol 2.5 mg 04/22/21 14:49 Albuterol 2.5 Mg/3 Ml Nebu IH Q4HRT PRN Shortness Of Breath Lipase/Protease/Amylase 1 each 04/22/21 16:30 Lipase 10,500/Protease 25,000/Amylase 43,750 (Units) Cap FEEDTUBE PRN PRN For Clogged Feeding Tube Dextrose 50 ml 04/22/21 15:01 Dextrose 50% In Water (25gm) 50 Ml Syringe IV Q30MIN PRN Hypoglycemia Protocol Famotidine 20 mg 04/21/21 18:00 04/23/21 09:00 Famotidine 20 Mg/2 Ml Inj IV 20 mg QDAY AZIZA Administration Dextrose 1,000 mls @ 125 mls/hr 04/21/21 02:00 04/22/21 14:18 D5w IV 125 mls/hr DIRECT AZIZA Administration Ceftriaxone Sodium 1 gm in 50 mls @ 100 mls/hr 04/21/21 09:00 04/23/21 09:00 Rocephin/Ns 1 Gm/50 Ml IV 100 mls/hr Q24H AZIZA Administration Protocol Insulin Human Isoph/Insulin Regular 15 unit 04/22/21 17:00 04/23/21 09:00 Insulin Nph/Regular 70/30 Inj SUB-Q 15 unit BIDDIAB AZIZA Administration Insulin Human Regular 0 units 04/23/21 06:00 04/23/21 06:08 Insulin Regular, Human 100 Units/1 Ml SUB-Q 3 units Q6H AZIZA Administration Protocol Metoclopramide HCl 5 mg 04/20/21 21:31 Metoclopramide 10 Mg/2 Ml Inj IV Q6H PRN Nausea And Vomiting Morphine Sulfate 2 mg 04/20/21 21:31 Morphine 2 Mg/1 Ml Inj IV Q4H PRN Pain, Moderate (4-6) Ondansetron HCl 4 mg 04/20/21 21:31 Ondansetron 4 Mg/2 Ml Inj IV Q8H PRN Nausea And Vomiting Simple Syrup 15 ml 04/22/21 16:30 Simple Syrup 15 Ml FEEDTUBE PRN PRN Hypoglycemia Simple Syrup 30 ml 04/22/21 16:30 Simple Syrup 15 Ml FEEDTUBE PRN PRN Hypoglycemia Sodium Bicarbonate 325 mg 04/22/21 16:30 Sodium Bicarbonate 325 Mg Tab FEEDTUBE PRN PRN For Clogged Feeding Tube Sodium Chloride 10 ml 04/20/21 22:00 04/23/21 09:01 Sodium Chloride 0.9% 10 Ml Flush Syringe IV 10 ml BID AZIZA Administration Sodium Chloride 10 ml 04/20/21 21:31 Sodium Chloride 0.9% 10 Ml Flush Syringe IV PRN PRN LINE FLUSH
[2021-04-23] MEDS: DEXTROSE 5% IN WATER 1,000 ML IV SCH ×2 (12:31→20:25)
[2021-04-23] MEDS ORDERED: INSULIN NPH/REGULAR 70/30 INJ SUB-Q ONE ×2 (12:34→18:03)
[2021-04-23] MEDS ORDERED: EPINEPHrine RACEMIC 2.25% 0.5ML NEBU IH ONE (15:02)
--- NOTE | 2021-04-23 15:12 | History and Physical Report ---
History of Present Illness Date of examination: 04/22/21 Date of admission: 04/20/21 19:17 Chief complaint: altered mental status History of present illness: Catalina Reaves is a 80 y/o F w/ multiple medical maladies. She was brought to [facility] ED a few days ago after she was found down, unresponsive. She was found to have DKA and SYED. Due to the alteration of her mental status, a CT head was performed. 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 Radio logy commented on the possibility of NPH. She remains intubated in the ICU. NSGY consulted for further evaluation. Past History Past Medical History: other (Dementia, GERD) Past Surgical History: Other (unable to obtain.) Social history: other (unable to obtain) Family history: other (unable to obtain) Medications and Allergies Allergies Allergy/AdvReac Type Severity Reaction Status Date / Time No Known Allergies Allergy Unverified 04/20/21 14:35 Active Meds: Active Medications Acetaminophen (Acetaminophen 325 Mg Tab) 650 mg PO Q4H PRN PRN Reason: Pain MILD(1-3)/Fever >100.5/TURCIOS Albuterol (Albuterol 2.5 Mg/3 Ml Nebu) 2.5 mg IH Q4HRT PRN PRN Reason: Shortness Of Breath Lipase/Protease/Amylase (Lipase 10,500/Protease 25,000/Amylase 43,750 (Units) Dr Vasquez) 1 each FEEDTUBE PRN PRN PRN Reason: For Clogged Feeding Tube Dextrose (Dextrose 50% In Water (25gm) 50 Ml Syringe) 50 ml IV Q30MIN PRN; Pr otocol PRN Reason: Hypoglycemia Famotidine (Famotidine 20 Mg/2 Ml Inj) 20 mg IV QDAY AZIZA Last Admin: 04/23/21 09:00 Dose: 20 mg Documented by: Dextrose (D5w) 1,000 mls @ 125 mls/hr IV DIRECT AZIZA Last Admin: 04/23/21 12:31 Dose: 125 mls/hr Documented by: Ceftriaxone Sodium (Rocephin/Ns 1 Gm/50 Ml) 1 gm in 50 mls @ 100 mls/hr IV Q24H AZIZA; Protocol Last Infusion: 04/23/21 09:30 Dose: Infused Documented by: Insulin Human Isoph/Insulin Regular (Insulin Nph/Regular 70/30 Inj) 20 unit SUB-Q [facility]DIAB [facility] Insulin Human Regular (Insulin Regular, Human 100 Units/1 Ml) 0 units SUB-Q Q6H [facility]; Protocol Last Admin: 04/23/21 12:30 Dose: 6 units Documented by: Metoclopramide HCl (Metoclopramide 10 Mg/2 Ml Inj) 5 mg IV Q6H PRN PRN Reason: Nausea And Vomiting Morphine Sulfate (Morphine 2 Mg/1 Ml Inj) 2 mg IV Q4H PRN PRN Reason: Pain, Moderate (4-6) Ondansetron HCl (Ondansetron 4 Mg/2 Ml Inj) 4 mg IV Q8H PRN PRN Reason: Nausea And Vomiting Simple Syrup (Simple Syrup 15 Ml) 15 ml FEEDTUBE PRN PRN PRN Reason: Hypoglycemia Simple Syrup (Simple Syrup 15 Ml) 30 ml FEEDTUBE PRN PRN PRN Reason: Hypoglycemia Sodium Bicarbonate (Sodium Bicarbonate 325 Mg Tab) 325 mg FEEDTUBE PRN PRN PRN Reason: For Clogged Feeding Tube Sodium Chloride (Sodium Chloride 0.9% 10 Ml Flush Syringe) 10 ml IV BID [facility] Last Admin: 04/23/21 09:01 Dose: 10 ml Documented by: Sodium Chloride (Sodium Chloride 0.9% 10 Ml Flush Syringe) 10 ml IV PRN PRN PRN Reason: LINE FLUSH Review of Systems All systems: negative (what is specified in HPI) Physical Examination - Vital Signs Vital Signs: Vital Signs Pulse Resp BP Pulse Ox 85 19 107/35 94 04/20/21 14:31 04/20/21 14:31 04/20/21 14:31 04/20/21 14:31 - Physical Exam Narrative exam: seen and examined intubated, off sedation hemodynamically stable no eye opening pupils 4 mm, Reactive +gag no extremity response Results - Laboratory Findings CBC and BMP: 04/23/21 08:13 04/23/21 08:13 Abnormal Lab Findings: Abnormal Labs 04/20/21 04/20/21 04/20/21 17:10 17:10 17:10 WBC 17.4 H RBC 5.19 H Hct 46.8 H MCH 27 L RDW 17.2 H Plt Count Seg Neuts % (Manual) 98.0 H Lymphocytes % (Manual) 2.0 L Nucleated RBC % 1.0 H Seg Neutrophils # Man 17.1 H Lymphocytes # (Manual) 0.3 L ABG pH ABG pO2 ABG O2 Saturation ABG Base Excess ABG Hemoglobin Oxyhemoglobin Sodium 173 H* Potassium Chloride 132.9 H Carbon Dioxide 17 L BUN 120 H Creatinine 4.2 H Glucose 762 H* POC Glucose Hemoglobin A1c Lactic Acid Calcium Magnesium 3.80 H AST 72 H ALT 63 H Alkaline Phosphatase 148 H Total Creatine Kinase 3697 H CK-MB (CK-2) 36.0 H Total Protein Albumin 2.2 L TSH Urine Creatinine Urine Total Protein 04/20/21 04/20/21 04/20/21 17:10 17:10 18:55 WBC RBC Hct MCH RDW Plt Count Seg Neuts % (Manual) Lymphocytes % (Manual) Nucleated RBC % Seg Neutrophils # Man Lymphocytes # (Manual) ABG pH ABG pO2 ABG O2 Saturation ABG Base Excess ABG Hemoglobin Oxyhemoglobin Sodium Potassium Chloride Carbon Dioxide BUN Creatinine Glucose POC Glucose 574 H Hemoglobin A1c Lactic Acid 2.60 H* Calcium Magnesium AST ALT Alkaline Phosphatase Total Creatine Kinase CK-MB (CK-2) Total Protein Albumin TSH 6.040 H Urine Creatinine Urine Total Protein 04/20/21 04/20/21 04/21/21 22:58 22:58 00:14 WBC RBC Hct MCH RDW Plt Count Seg Neuts % (Manual) Lymphocytes % (Manual) Nucleated RBC % Seg Neutrophils # Man Lymphocytes # (Manual) ABG pH ABG pO2 ABG O2 Saturation ABG Base Excess ABG Hemoglobin Oxyhemoglobin Sodium 172 H* Potassium 3.2 L Chloride 134.2 H Carbon Dioxide 17 L BUN 112 H Creatinine 3.8 H Glucose 803 H* POC Glucose > 600 H Hemoglobin A1c Lactic Acid Calcium 8.3 L Magnesium 3.50 H AST ALT Alkaline Phosphatase Total Creatine Kinase CK-MB (CK-2) Total Protein Albumin TSH Urine Creatinine Urine Total Protein 04/21/21 04/21/21 04/21/21 00:22 02:01 03:11 WBC RBC Hct MCH RDW Plt Count Seg Neuts % (Manual) Lymphocytes % (Manual) Nucleated RBC % Seg Neutrophils # Man Lymphocytes # (Manual) ABG pH ABG pO2 ABG O2 Saturation ABG Base Excess ABG Hemoglobin Oxyhemoglobin Sodium 176 H* 175 H* Potassium 2.9 L* 3.0 L Chloride 139.9 H 136.2 H Carbon Dioxide 17 L 19 L BUN 113 H 112 H Creatinine 3.9 H 3.6 H Glucose 729 H* 582 H* POC Glucose 404 H Hemoglobin A1c Lactic Acid Calcium Magnesium AST ALT Alkaline Phosphatase Total Creatine Kinase CK-MB (CK-2) Total Protein Albumin TSH Urine Creatinine Urine Total Protein 04/21/21 04/21/21 04/21/21 03:20 03:41 03:41 WBC 14.1 H RBC Hct MCH 27 L RDW 16.8 H Plt Count 114 L Seg Neuts % (Manual) 97.0 H Lymphocytes % (Manual) 3.0 L Nucleated RBC % 1.0 H Seg Neutrophils # Man 13.7 H Lymphocytes # (Manual) 0.4 L ABG pH ABG pO2 52.3 L ABG O2 Saturation 84.5 L ABG Base Excess -2.9 L ABG Hemoglobin Oxyhemoglobin 82.9 L Sodium 179 H* Potassium 2.9 L* Chloride 138.2 H Carbon Dioxide 20 L BUN 111 H Creatinine 3.7 H Glucose 465 H POC Glucose Hemoglobin A1c Lactic Acid Calcium Magnesium AST 73 H ALT 61 H Alkaline Phosphatase 144 H Total Creatine Kinase CK-MB (CK-2) Total Protein Albumin 2.5 L TSH Urine Creatinine Urine Total Protein 04/21/21 04/21/21 04/21/21 04:24 05:45 06:47 WBC RBC Hct MCH RDW Plt Count Seg Neuts % (Manual) Lymphocytes % (Manual) Nucleated RBC % Seg Neutrophils # Man Lymphocytes # (Manual) ABG pH ABG pO2 ABG O2 Saturation ABG Base Excess ABG Hemoglobin Oxyhemoglobin Sodium Potassium Chloride Carbon Dioxide BUN Creatinine Glucose POC Glucose 353 H 280 H 260 H Hemoglobin A1c Lactic Acid Calcium Magnesium AST ALT Alkaline Phosphatase Total Creatine Kinase CK-MB (CK-2) Total Protein Albumin TSH Urine Creatinine Urine Total Protein 04/21/21 04/21/21 04/21/21 08:01 11:11 12:51 WBC RBC Hct MCH RDW Plt Count Seg Neuts % (Manual) Lymphocytes % (Manual) Nucleated RBC % Seg Neutrophils # Man Lymphocytes # (Manual) ABG pH ABG pO2 ABG O2 Saturation ABG Base Excess ABG Hemoglobin Oxyhemoglobin Sodium Potassium Chloride Carbon Dioxide BUN Creatinine Glucose POC Glucose 68 L 146 H Hemoglobin A1c Lactic Acid Calcium Magnesium AST ALT Alkaline Phosphatase Total Creatine Kinase CK-MB (CK-2) Total Protein Albumin TSH Urine Creatinine 44.3 H Urine Total Protein 12 H 04/21/21 04/21/21 04/21/21 14:40 15:47 16:25 WBC RBC Hct MCH RDW Plt Count Seg Neuts % (Manual) Lymphocytes % (Manual) Nucleated RBC % Seg Neutrophils # Man Lymphocytes # (Manual) ABG pH 7.486 H ABG pO2 168.1 H ABG O2 Saturation 99.1 H ABG Base Excess ABG Hemoglobin 8.9 L Oxyhemoglobin Sodium Potassium Chloride Carbon Dioxide BUN Creatinine Glucose POC Glucose 186 H 172 H Hemoglobin A1c Lactic Acid Calcium Magnesium AST ALT Alkaline Phosphatase Total Creatine Kinase CK-MB (CK-2) Total Protein Albumin TSH Urine Creatinine Urine Total Protein 04/21/21 04/21/21 04/21/21 17:57 18:49 19:10 WBC RBC Hct MCH RDW Plt Count Seg Neuts % (Manual) Lymphocytes % (Manual) Nucleated RBC % Seg Neutrophils # Man Lymphocytes # (Manual) ABG pH ABG pO2 ABG O2 Saturation ABG Base Excess ABG Hemoglobin Oxyhemoglobin Sodium 174 H* Potassium 7.2 H* D Chloride 138.2 H Carbon Dioxide 21 L BUN 99 H Creatinine 4.0 H Glucose 157 H POC Glucose 143 H 126 H Hemoglobin A1c Lactic Acid Calcium Magnesium AST 134 H ALT 71 H Alkaline Phosphatase 135 H Total Creatine Kinase 3504 H CK-MB (CK-2) Total Protein Albumin 2.2 L TSH Urine Creatinine Urine Total Protein 04/21/21 04/21/21 04/21/21 20:26 20:53 21:52 WBC RBC Hct MCH RDW Plt Count Seg Neuts % (Manual) Lymphocytes % (Manual) Nucleated RBC % Seg Neutrophils # Man Lymphocytes # (Manual) ABG pH ABG pO2 ABG O2 Saturation ABG Base Excess ABG Hemoglobin Oxyhemoglobin Sodium Potassium Chloride Carbon Dioxide BUN Creatinine Glucose POC Glucose 190 H 116 H 135 H Hemoglobin A1c Lactic Acid Calcium Magnesium AST ALT Alkaline Phosphatase Total Creatine Kinase CK-MB (CK-2) Total Protein Albumin TSH Urine Creatinine Urine Total Protein 04/21/21 04/21/21 04/22/21 22:55 23:00 00:01 WBC RBC Hct MCH RDW Plt Count Seg Neuts % (Manual) Lymphocytes % (Manual) Nucleated RBC % Seg Neutrophils # Man Lymphocytes # (Manual) ABG pH ABG pO2 ABG O2 Saturation ABG Base Excess ABG Hemoglobin Oxyhemoglobin Sodium 176 H* Potassium Chloride 140.0 H Carbon Dioxide 20 L BUN 98 H Creatinine 3.9 H Glucose 206 H POC Glucose 158 H 182 H Hemoglobin A1c Lactic Acid Calcium Magnesium AST ALT Alkaline Phosphatase Total Creatine Kinase 3240 H CK-MB (CK-2) Total Protein Albumin TSH Urine Creatinine Urine Total Protein 04/22/21 04/22/21 04/22/21 00:39 00:58 01:04 WBC RBC Hct MCH RDW Plt Count Seg Neuts % (Manual) Lymphocytes % (Manual) Nucleated RBC % Seg Neutrophils # Man Lymphocytes # (Manual) ABG pH ABG pO2 ABG O2 Saturation ABG Base Excess ABG Hemoglobin Oxyhemoglobin Sodium 171 H* Potassium Chloride Carbon Dioxide BUN Creatinine Glucose POC Glucose 176 H 143 H Hemoglobin A1c Lactic Acid Calcium Magnesium AST ALT Alkaline Phosphatase Total Creatine Kinase CK-MB (CK-2) Total Protein Albumin TSH Urine Creatinine Urine Total Protein 04/22/21 04/22/21 04/22/21 04:52 06:07 06:09 WBC 11.2 H RBC Hct 44.3 H MCH 27 L RDW 17.1 H Plt Count 86 L Seg Neuts % (Manual) 86.0 H Lymphocytes % (Manual) 13.0 L Nucleated RBC % Seg Neutrophils # Man 9.6 H Lymphocytes # (Manual) ABG pH ABG pO2 ABG O2 Saturation ABG Base Excess ABG Hemoglobin Oxyhemoglobin Sodium Potassium Chloride Carbon Dioxide BUN Creatinine Glucose POC Glucose 206 H 163 H Hemoglobin A1c Lactic Acid Calcium Magnesium AST ALT Alkaline Phosphatase Total Creatine Kinase CK-MB (CK-2) Total Protein Albumin TSH Urine Creatinine Urine Total Protein 04/22/21 04/22/21 04/22/21 07:18 08:59 08:59 WBC RBC Hct MCH RDW Plt Count Seg Neuts % (Manual) Lymphocytes % (Manual) Nucleated RBC % Seg Neutrophils # Man Lymphocytes # (Manual) ABG pH ABG pO2 ABG O2 Saturation ABG Base Excess ABG Hemoglobin Oxyhemoglobin Sodium 169 H* Potassium 3.5 L Chloride 134.5 H Carbon Dioxide 20 L BUN 95 H Creatinine 3.6 H Glucose 151 H POC Glucose 158 H Hemoglobin A1c Lactic Acid Calcium Magnesium AST 121 H ALT 75 H Alkaline Phosphatase 137 H Total Creatine Kinase 3105 H CK-MB (CK-2) Total Protein 6.0 L Albumin 2.1 L TSH Urine Creatinine Urine Total Protein 12/31/21 12/31/21 12/31/21 10:24 12:20 13:19 WBC RBC Hct MCH RDW Plt Count Seg Neuts % (Manual) Lymphocytes % (Manual) Nucleated RBC % Seg Neutrophils # Man Lymphocytes # (Manual) ABG pH ABG pO2 ABG O2 Saturation ABG Base Excess ABG Hemoglobin Oxyhemoglobin Sodium Potassium Chloride Carbon Dioxide BUN Creatinine Glucose POC Glucose 107 H 131 H 147 H Hemoglobin A1c Lactic Acid Calcium Magnesium AST ALT Alkaline Phosphatase Total Creatine Kinase CK-MB (CK-2) Total Protein Albumin TSH Urine Creatinine Urine Total Protein 04/22/21 04/22/21 04/22/21 14:16 15:22 15:55 WBC RBC Hct MCH RDW Plt Count Seg Neuts % (Manual) Lymphocytes % (Manual) Nucleated RBC % Seg Neutrophils # Man Lymphocytes # (Manual) ABG pH ABG pO2 ABG O2 Saturation ABG Base Excess ABG Hemoglobin Oxyhemoglobin Sodium 169 H* Potassium Chloride 133.5 H Carbon Dioxide 19 L BUN 94 H Creatinine 3.8 H Glucose 150 H POC Glucose 154 H 136 H Hemoglobin A1c Lactic Acid Calcium Magnesium AST ALT Alkaline Phosphatase Total Creatine Kinase CK-MB (CK-2) Total Protein Albumin TSH Urine Creatinine Urine Total Protein 04/22/21 04/22/21 04/22/21 15:55 16:22 18:11 WBC RBC Hct MCH RDW Plt Count Seg Neuts % (Manual) Lymphocytes % (Manual) Nucleated RBC % Seg Neutrophils # Man Lymphocytes # (Manual) ABG pH ABG pO2 ABG O2 Saturation ABG Base Excess ABG Hemoglobin Oxyhemoglobin Sodium Potassium Chloride Carbon Dioxide BUN Creatinine Glucose POC Glucose 140 H Hemoglobin A1c 17.1 H Lactic Acid Calcium Magnesium AST ALT Alkaline Phosphatase Total Creatine Kinase 2497 H CK-MB (CK-2) Total Protein Albumin TSH Urine Creatinine Urine Total Protein 04/22/21 04/22/21 04/23/21 18:26 23:19 00:27 WBC RBC Hct MCH RDW Plt Count Seg Neuts % (Manual) Lymphocytes % (Manual) Nucleated RBC % Seg Neutrophils # Man Lymphocytes # (Manual) ABG pH ABG pO2 ABG O2 Saturation ABG Base Excess ABG Hemoglobin Oxyhemoglobin Sodium 162 H* Potassium Chloride Carbon Dioxide BUN Creatinine Glucose POC Glucose 146 H 188 H Hemoglobin A1c Lactic Acid Calcium Magnesium AST ALT Alkaline Phosphatase Total Creatine Kinase CK-MB (CK-2) Total Protein Albumin TSH Urine Creatinine Urine Total Protein 04/23/21 04/23/21 04/23/21 05:23 07:50 08:13 WBC RBC Hct MCH RDW Plt Count Seg Neuts % (Manual) Lymphocytes % (Manual) Nucleated RBC % Seg Neutrophils # Man Lymphocytes # (Manual) ABG pH ABG pO2 ABG O2 Saturation ABG Base Excess ABG Hemoglobin Oxyhemoglobin Sodium Potassium Chloride Carbon Dioxide BUN Creatinine Glucose POC Glucose 212 H 239 H Hemoglobin A1c Lactic Acid Calcium Magnesium AST ALT Alkaline Phosphatase Total Creatine Kinase 1803 H CK-MB (CK-2) Total Protein Albumin TSH Urine Creatinine Urine Total Protein 04/23/21 04/23/21 04/23/21 08:13 08:13 12:06 WBC 11.9 H RBC Hct MCH 26 L RDW 16.5 H Plt Count 72 L Seg Neuts % (Manual) Lymphocytes % (Manual) Nucleated RBC % Seg Neutrophils # Man Lymphocytes # (Manual) ABG pH ABG pO2 ABG O2 Saturation ABG Base Excess ABG Hemoglobin Oxyhemoglobin Sodium 164 H* Potassium Chloride 128.0 H Carbon Dioxide 21 L BUN 93 H Creatinine 3.8 H Glucose 293 H POC Glucose 311 H Hemoglobin A1c Lactic Acid Calcium Magnesium AST 99 H ALT 70 H Alkaline Phosphatase 147 H Total Creatine Kinase CK-MB (CK-2) Total Protein 6.1 L Albumin 2.0 L TSH Urine Creatinine Urine Total Protein Assessment and Plan Catalina Reaves is a 80 y/o F w/ multiple medical maladies, DKA, SYED -patient's hydrocephalus is likely ex vacuo, no acute or related to acute presentation -patient's encephalopathy is metabolic -no further NSGY intervention. please notify if questions/concerns
[2021-04-23] MEDS: ALBUTEROL 2.5 MG/3 ML NEBU IH PRN ×2 (15:17→15:18)
[2021-04-23 16:58] LABS: Band Neutrophils # (Manual) 0.6 K/mm3; Total Cells Counted 100
[2021-04-23 16:59] LABS: Platelet Estimate Consistent w Auto
[2021-04-23] MEDS ORDERED: INSULIN NPH/REGULAR 70/30 INJ SUB-Q SCH (17:00)
--- NOTE | 2021-04-23 17:03 | Progress Note ---
Assessment and Plan Assessment and plan: This is a 80-year-old female prison resident with GERD, hypothyroidism, hyperlipidemia, schizophrenia and dementia admitted with hypothermia, hyponatremia, hypokalemia, lactic acidosis, acute kidney injury, rhabdomyolysis and hyperosmolar nonketotic state. Neuro: Acute metabolic encephalopathy, normal pressure hydrocephalus -CT head shows lateral ventricles and third ventricle dilation, raises possibility of normal pressure hydrocephalus -Neurology and neurosurgery consulted, appreciate recommendations -neurosurgery has no acute interventions -Maintain sleep-wake cycle -Avoid delirium -Correct electrolyte derangements -Hold off on restarting home antipsychotic medications when obtained Cardio: NAD -Blood pressure monitoring per protocol -MI Respiratory: Acute hypoxic respiratory failure -Patient had hypoxia in the emergency department and was placed on BiPAP from nasal cannula per documentation -Patient was downgraded to nasal cannula by RT however she developed tachypnea and hypoxia and is currently on a nonrebreather -ABG: pH 7.486, PCO2 31.6, PO2 168.1, bicarb 23.3, base excess 0.3 100% FiO2 -Supplemental oxygen as needed -SPO2 monitoring -Pulmonary hygiene -Repeat CXR shows increased interstitial prominence of densities in bilateral lungs GI: Hypoalbuminemia, transaminitis -Presented with transaminitis -Trend LFTs -Ntr consult for TF -started on TF -24 hours +2427 ml -BR: Senokot -PPI -Nutritional supplementation : Severe hypernatremia, hypokalemia, hyperchloremia, metabolic acidosis, acute kidney injury likely secondary to vasomotor nephropathy, urinary retention, rhabdomyolysis -FeNA 0.50 indicating prerenal sate -Nephrology consulted, appreciate -Replete potassium -Luther catheter placed for strict intake and output -[facility] consulted, appreciate recommendations -Avoid nephrotoxic medication -Trend BMP -Serial sodium checks -Renally dose medications -Trend CK -renal US WNL per read ID: Hypothermia, lactic acidosis -COVID-19 PCR negative -Blood culture x2 pending -Antibiotic therapy with Rocephin -Monitor WBC and fever curve -S/p 2 L IV fluid in the ED -Trend lactic acid Endo: s/p HHNK -TF -s/p Insulin drip -SSI -Accucheck q 6 -70/30-titrate as needed -TSH 6.04, T4 0.93 -Avoid hypoglycemia Heme: Leukocytosis, thrombocytopenia -Trend CBC -Transfuse to hemoglobin less than 7 -Anticoagulation held d/t plts -SCD to bilateral lower extremities while in bed -Monitor for bleeding -r/o DVT -left UE dopplar US The high probability of a clinically significant, sudden or life threatening deterioration of the [multi] system(s) required my full and direct attention, intervention and personal management. The aggregate critical care time was [60] minutes. This time is in addition to time spent performing reported procedures but includes the following: [x] Data Review and interpretation [x] Patient assessment and monitoring of vital signs [x] Documentation [x] Medication orders and management Disposition Plan: icu Total Time Spent with Patient (Minutes): 60 History Interval history: This is a 80-year-old female who was prison resident at [facility] with GERD, hypothyroidism, hyperlipidemia, schizophrenia and dementia presented to [facility] emergency department on 04/20 after being found unresponsive by the staff via EMS. Per EMS glucose levels read as high. Work-up in the emergency department revealed severe hypernatremia, leukocytosis, metabolic acidosis, hyperchloremia, elevated BUN/creatinine, lactic acidosis and hyperglycemia. Patient was also hypothermic on admit. CT head showed findings suggestive of the possibility of normal pressure hydrocephalus. Patient was admitted to the hospitalist service with acute metabolic encephalopathy, diabetic hyperosmolar nonketotic state, acute kidney injury, hypernatremia, rhabdomyolysis and leukocytosis with consults to nephrology and [facility]. 04/21: Given 1 L LR bolus per nephrology and D5W increased to 125 mL's per hour, COVID-19 PCR pending, CXR and ABG ordered as patient was weaned from BiPAP to 3 L nasal cannula however was uptitrated back to nonrebreather. Will obtain b lood cultures x2 given her leukocytosis and hypothermia. Replace potassium. Neurosurgery and neurology consulted and Luther catheter placed. 04/22: Improvement to sodium noted, slight hypokalemia which will be repleted, slight improvement to renal function, LFTs and rhabdomyolysis. Seen by neuros urgery today. Patient still making urine. transition to ssi and start TF as AG 15 04/23/2021: Given racemic epinephrine again due to stridor, continue IV fluids per nephrology, continue to trend sodium and BMP. Hospitalist Physical - Constitutional Vitals: Temp Pulse Resp BP Pulse Ox 98.7 F 108 H 24 93/43 97 04/23/21 03:33 04/23/21 15:40 04/23/21 15:40 04/23/21 14:15 04/23/21 14:15 General appearance: Present: no acute distress, other (Lying in bed unresponsive) - EENT Eyes: Present: PERRL, EOM intact ENT: hearing intact, clear oral mucosa, dentition normal - Neck Neck: Present: normal ROM - Respiratory Respiratory effort: normal Respiratory: bilateral: diminished - Cardiovascular Rhythm: regular Heart Sounds: Present: S1 & S2. Absent: systolic murmur, diastolic murmur - Extremities Extremities: no ischemia, pulses intact, pulses symmetrical, No edema, normal temperature, normal color Peripheral Pulses: within normal limits - Abdominal General gastrointestinal: soft, non-tender, non-distended, normal bowel sounds - Integumentary Integumentary: Present: warm, dry - Psychiatric Psychiatric: cooperative - Neurologic Neurologic: moves all extremities - Allied Health Allied health notes reviewed: nursing, social work HEART Score - HEART Score Troponin: Troponin T 0.021 ng/mL (0.00-0.029) 04/20/21 17:10 Results - Labs CBC & Chem 7: 04/23/21 08:13 04/23/21 08:13 Labs: Laboratory Last Values WBC 11.9 K/mm3 (4.5-11.0) H 04/23/21 08:13 RBC 4.58 M/mm3 (3.65-5.03) 04/23/21 08:13 Hgb 12.0 gm/dl (10.1-14.3) 04/23/21 08:13 Hct 39.4 % (30.3-42.9) 04/23/21 08:13 MCV 86 fl (79-97) 04/23/21 08:13 MCH 26 pg (28-32) L 04/23/21 08:13 MCHC 31 % (30-34) 04/23/21 08:13 RDW 16.5 % (13.2-15.2) H 04/23/21 08:13 Plt Count 72 K/mm3 (140-440) L 04/23/21 08:13 Add Manual Diff Complete 04/23/21 08:13 Total Counted 100 04/23/21 08:13 Seg Neutrophils % [place] 04/23/21 08:13 Seg Neuts % (Manual) 80.0 % (40.0-70.0) H 04/23/21 08:13 Band Neutrophils % 5.0 % 04/23/21 08:13 Lymphocytes % (Manual) 5.0 % (13.4-35.0) L 04/23/21 08:13 Monocytes % (Manual) 2.0 % (0.0-7.3) 04/23/21 08:13 Myelocytes % 8.0 % 04/23/21 08:13 Nucleated RBC % Not Reportable 04/23/21 08:13 Seg Neutrophils # Man 9.5 K/mm3 (1.8-7.7) H 04/23/21 08:13 Band Neutrophils # 0.6 K/mm3 04/23/21 08:13 Lymphocytes # (Manual) 0.6 K/mm3 (1.2-5.4) L 04/23/21 08:13 Abs React Lymphs (Man) 0.0 K/mm3 04/23/21 08:13 Monocytes # (Manual) 0.2 K/mm3 (0.0-0.8) 04/23/21 08:13 Eosinophils # (Manual) 0.0 K/mm3 (0.0-0.4) 04/23/21 08:13 Basophils # (Manual) 0.0 K/mm3 (0.0-0.1) 04/23/21 08:13 Metamyelocytes # 0.0 K/mm3 04/23/21 08:13 Myelocytes # 1.0 K/mm3 04/23/21 08:13 Promyelocytes # 0.0 K/mm3 04/23/21 08:13 Blast Cells # 0.0 K/mm3 04/23/21 08:13 WBC Morphology Not Reportable 04/23/21 08:13 Hypersegmented Neuts Not Reportable 04/23/21 08:13 Hyposegmented Neuts Not Reportable 04/23/21 08:13 Hypogranular Neuts Not Reportable 04/23/21 08:13 Smudge Cells Not Reportable 04/23/21 08:13 Toxic Granulation Not Reportable 04/23/21 08:13 Toxic Vacuolation Not Reportable 04/23/21 08:13 Dohle Bodies Not Reportable 04/23/21 08:13 Pelger-Huet Anomaly Not Reportable 04/23/21 08:13 Moni Rods Not Reportable 04/23/21 08:13 Platelet Estimate Consistent w auto 04/23/21 08:13 Clumped Platelets Not Reportable 04/23/21 08:13 Plt Clumps, EDTA Not Reportable 04/23/21 08:13 Large Platelets Not Reportable 04/23/21 08:13 Giant Platelets Not Reportable 04/23/21 08:13 Platelet Satelliting Not Reportable 04/23/21 08:13 Plt Morphology Comment Not Reportable 04/23/21 08:13 RBC Morphology Not Reportable 04/23/21 08:13 Dimorphic RBCs Not Reportable 04/23/21 08:13 Polychromasia Not Reportable 04/23/21 08:13 Hypochromasia Not Reportable 04/23/21 08:13 Poikilocytosis Not Reportable 04/23/21 08:13 Anisocytosis Not Reportable 04/23/21 08:13 Microcytosis Not Reportable 04/23/21 08:13 Macrocytosis Not Reportable 04/23/21 08:13 Spherocytes Not Reportable 04/23/21 08:13 Pappenheimer Bodies Not Reportable 04/23/21 08:13 Sickle Cells Not Reportable 04/23/21 08:13 Target Cells Not Reportable 04/23/21 08:13 Tear Drop Cells Not Reportable 04/23/21 08:13 Ovalocytes Not Reportable 04/23/21 08:13 Helmet Cells Not Reportable 04/23/21 08:13 Parkinson-[place] Bodies Not Reportable 04/23/21 08:13 Idamay Rings Not Reportable 04/23/21 08:13 [place] Cells Not Reportable 04/23/21 08:13 Bite Cells Not Reportable 04/23/21 08:13 Crenated Cell Not Reportable 04/23/21 08:13 Elliptocytes Not Reportable 04/23/21 08:13 Acanthocytes (Spur) Not Reportable 04/23/21 08:13 Rouleaux Not Reportable 04/23/21 08:13 Hemoglobin C Crystals Not Reportable 04/23/21 08:13 Schistocytes Not Reportable 04/23/21 08:13 Malaria parasites Not Reportable 04/23/21 08:13 Herrera Bodies Not Reportable 04/23/21 08:13 Hem Pathologist Commnt No 04/23/21 08:13 ABG pH 7.486 pH Units (7.350-7.450) H 04/21/21 15:47 ABG pCO2 31.6 mm Hg 04/21/21 15:47 ABG pO2 168.1 mm Hg (80.0-90.0) H 04/21/21 15:47 ABG HCO3 23.3 mmol/L (20.0-26.0) 04/21/21 15:47 ABG O2 Saturation 99.1 % (95.0-99.0) H 04/21/21 15:47 ABG O2 Content 12.7 (0.0-44) 04/21/21 15:47 ABG Base Excess 0.3 mmol/L (-2.0-3.0) 04/21/21 15:47 ABG Hemoglobin 8.9 gm/dl (12.0-16.0) L 04/21/21 15:47 ABG Carboxyhemoglobin 1.0 % (0.0-5.0) 04/21/21 15:47 ABG Methemoglobin 0.6 % (0.0-1.5) 04/21/21 15:47 VBG pH 7.397 (7.320-7.420) 04/20/21 17:10 Oxyhemoglobin 97.5 % (95.0-99.0) 04/21/21 15:47 FiO2 100 % 04/21/21 15:47 Sodium 164 mmol/L (137-145) H* 04/23/21 08:13 Potassium 4.9 mmol/L (3.6-5.0) 04/23/21 08:13 Chloride 128.0 mmol/L (98-107) H 04/23/21 08:13 Carbon Dioxide 21 mmol/L (22-30) L 04/23/21 08:13 Anion Gap 20 mmol/L 04/23/21 08:13 BUN 93 mg/dL (7-17) H 04/23/21 08:13 Creatinine 3.8 mg/dL (0.6-1.2) H 04/23/21 08:13 Estimated GFR 14 ml/min 04/23/21 08:13 BUN/Creatinine Ratio 24 % 04/23/21 08:13 Glucose 293 mg/dL (65-100) H 04/23/21 08:13 POC Glucose 311 mg/dL (70-105) H 04/23/21 12:06 Hemoglobin A1c 17.1 % (4-6) H 04/22/21 15:55 Lactic Acid 1.90 mmol/L (0.7-2.0) 04/20/21 19:56 Calcium 8.7 mg/dL (8.4-10.2) 04/23/21 08:13 Phosphorus 4.20 mg/dL (2.5-4.5) 04/22/21 04:52 Magnesium 3.50 mg/dL (1.7-2.3) H 04/20/21 22:58 Total Bilirubin 0.80 mg/dL (0.1-1.2) 04/23/21 08:13 AST 99 units/L (5-40) H 04/23/21 08:13 ALT 70 units/L (7-56) H 04/23/21 08:13 Alkaline Phosphatase 147 units/L (35-129) H 04/23/21 08:13 Ammonia 29.0 umol/L (25-60) 04/20/21 17:10 Total Creatine Kinase 1803 units/L (30-135) H 04/23/21 08:13 CK-MB (CK-2) 36.0 ng/mL (0.0-4.0) H 04/20/21 17:10 CK-MB (CK-2) Rel Index 0.9 (0-4) 04/20/21 17:10 Troponin T 0.021 ng/mL (0.00-0.029) 04/20/21 17:10 Total Protein 6.1 g/dL (6.3-8.2) L 04/23/21 08:13 Albumin 2.0 g/dL (3.9-5) L 04/23/21 08:13 Albumin/Globulin Ratio 0.5 % 04/23/21 08:13 TSH 6.040 mlU/mL (0.270-4.200) H 04/20/21 17:10 Free T4 0.93 ng/dL (0.76-1.46) 04/20/21 17:10 Urine Color Yellow (Yellow) 04/20/21 Unknown Urine Turbidity Slightly-cloudy (Clear) 04/20/21 Unknown Urine pH 5.0 (5.0-7.0) 04/20/21 Unknown Ur Specific [place] 1.016 (1.003-1.030) 04/20/21 Unknown Urine Protein <15 mg/dl mg/dL (Negative) 04/20/21 Unknown Urine Glucose (UA) >=500 mg/dL (Negative) 04/20/21 Unknown Urine Ketones Tr mg/dL (Negative) 04/20/21 Unknown Urine Blood Mod (Negative) 04/20/21 Unknown Urine Nitrite Neg (Negative) 04/20/21 Unknown Urine Bilirubin Neg (Negative) 04/20/21 Unknown Urine Urobilinogen < 2.0 mg/dL (<2.0) 04/20/21 Unknown Ur Leukocyte Esterase Neg (Negative) 04/20/21 Unknown Urine WBC (Auto) 3.0 /HPF (0.0-6.0) 04/20/21 Unknown Urine RBC (Auto) 1.0 /HPF (0.0-6.0) 04/20/21 Unknown Urine Mucus Few /HPF 04/20/21 Unknown Urine Osmolality 446 Mosm/kg 04/21/21 08:01 Urine Creatinine 44.3 mg/dL (0.1-20.0) H 04/21/21 08:01 Urine Sodium 71 mmol/L 04/21/21 08:01 Urine Total Protein 12 mg/dL (5-11.8) H 04/21/21 08:01 Plasma/Serum Alcohol < 0.01 % (0-0.07) 04/20/21 17:10 Coronavirus (PCR) Negative (Negative) 04/21/21 Unknown Microbiology: Microbiology 04/21/21 14:04 Peripheral/Venous Blood Culture - Preliminary NO GROWTH AFTER 48 HOURS 04/21/21 14:04 Peripheral/Venous Blood Culture - Preliminary NO GROWTH AFTER 48 HOURS Luther/IV: Voiding Method Indwelling Catheter Active Medications - Current Medications Current Medications: Generic Name Dose Route Start Last Admin Trade Name Freq PRN Reason Stop Dose Admin Acetaminophen 650 mg 04/20/21 21:31 Acetaminophen 325 Mg Tab PO Q4H PRN Pain MILD(1-3)/Fever >100.5/TURCIOS Albuterol 2.5 mg 04/22/21 14:49 04/23/21 15:18 Albuterol 2.5 Mg/3 Ml Nebu IH 2.5 mg Q4HRT PRN Administration Shortness Of Breath Lipase/Protease/Amylase 1 each 04/22/21 16:30 Lipase 10,500/Protease 25,000/Amylase 43,750 (Units) Dr Vasquez FEEDTUBE PRN PRN For Clogged Feeding Tube Dextrose 50 ml 04/22/21 15:01 Dextrose 50% In Water (25gm) 50 Ml Syringe IV Q30MIN PRN Hypoglycemia Protocol Famotidine 20 mg 04/21/21 18:00 04/23/21 09:00 Famotidine 20 Mg/2 Ml Inj IV 20 mg QDAY AZIZA Administration Dextrose 1,000 mls @ 125 mls/hr 04/21/21 02:00 04/23/21 12:31 D5w IV 125 mls/hr DIRECT AZIZA Administration Ceftriaxone Sodium 1 gm in 50 mls @ 100 mls/hr 04/21/21 09:00 04/23/21 09:30 Rocephin/Ns 1 Gm/50 Ml IV Infused Q24H AZIZA Infusion Protocol Insulin Human Isoph/Insulin Regular 20 unit 04/23/21 17:00 04/23/21 16:39 Insulin Nph/Regular 70/30 Inj SUB-Q 20 unit BIDDIAB AZIZA Administration Insulin Human Regular 0 units 04/23/21 06:00 04/23/21 12:30 Insulin Regular, Human 100 Units/1 Ml SUB-Q 6 units Q6H AZIZA Administration Protocol Metoclopramide HCl 5 mg 04/20/21 21:31 Metoclopramide 10 Mg/2 Ml Inj IV Q6H PRN Nausea And Vomiting Morphine Sulfate 2 mg 04/20/21 21:31 Morphine 2 Mg/1 Ml Inj IV Q4H PRN Pain, Moderate (4-6) Ondansetron HCl 4 mg 04/20/21 21:31 Ondansetron 4 Mg/2 Ml Inj IV Q8H PRN Nausea And Vomiting Simple Syrup 15 ml 04/22/21 16:30 Simple Syrup 15 Ml FEEDTUBE PRN PRN Hypoglycemia Simple Syrup 30 ml 04/22/21 16:30 Simple Syrup 15 Ml FEEDTUBE PRN PRN Hypoglycemia Sodium Bicarbonate 325 mg 04/22/21 16:30 Sodium Bicarbonate 325 Mg Tab FEEDTUBE PRN PRN For Clogged Feeding Tube Sodium Chloride 10 ml 04/20/21 22:00 04/23/21 09:01 Sodium Chloride 0.9% 10 Ml Flush Syringe IV 10 ml BID AZIZA Administration Sodium Chloride 10 ml 04/20/21 21:31 Sodium Chloride 0.9% 10 Ml Flush Syringe IV PRN PRN LINE FLUSH Nutrition/Malnutrition Assess - Dietary Evaluation Nutrition/Malnutrition Findings: Nutrition Notes Start: 04/21/21 12:15 Freq: Status: Active Protocol: Document 04/22/21 15:29 JOSE (Rec: 04/22/21 15:49 JOSE [id number]) Nutrition Notes Initial or Follow up Brief Note Current Diet TF-Nepro w/CARBSTEADY @ 27 ml/ hr (since D 04/22). Weight change and time frame No body weight change reported . Subjective/Other Information RD consult for write/manage TF . TF-Nepro Ordered. Percent of energy/protein needs met: Prescribed Nepro w/CARBSTEADY @ 27 ml/hr provides for energy /protein needs (1,146 Kcal/52 g) during LOS, 100% Kcal; 100% AA. #1 Nutrition Diagnosis Inadequate oral intake Etiology Acute Metabolic Encephalopathy , Pt is unresponsive. As Evidenced by Signs and Symptoms MD request for write/manage TF . Nutrition Intervention Change Diet Order: d/c. Nutrition Support: Start Nepro w/CARBSTEADY @ 27 ml/hr. Flush: 110 ml water Q 4 hr. Kcal 1,146 Protein (gm) 52 Carbohydrates (gm) 103 Fat (gm) 61 Fluid (mL) 463 Fiber (gm) 8 % RDI: 100% Kcal; 100% AA. Goal #1 Provide at least 75% of energy /protein needs through Enteral Feeding during LOS. Follow-Up By: 04/25/21 Additional Comments Continue monitoring TF tolerance and BM.
--- NOTE | 2021-04-23 22:15 | Progress Note ---
Assessment and Plan Imp: 1. Hyperosmolar non-ketotic state with volume depletion and hypernatremia 2. Metabolic enceph. 3. SYED 4. Acute respiratory failure, hypoxia 5. Thrombocytopenia Rec: 1. Cont. Insulin and hypotonic IVFs 2. Avoid any sedating meds 3. Aspiration precautions/elevated HOB 4. TFs; NPO otherwise until mentation improves 5. Agree w/ empiric Rocephin; f/u blood cultures and monitor temp/WBCs 6. Monitor platelets; SCDs 7. NSGY note reviewed -> CT head findings believed to be hydrocephalus ex vacuo 8. Echo 9. LUE doppler to r/o DVT 10. "Stridor" is primarily due to patient moaning with every breath; monitoring closely but intubation not needed presently 11. Prognosis guarded; CCT 31 minutes; no family present Subjective Date of service: 04/23/21 Principal diagnosis: Acute respiratory failure Interval history: LUE edema noted. On VM 50% FiO2. Moans but is otherwise poorly responsive. Received Racemic EPI today. Active Medications Acetaminophen (Acetaminophen 325 Mg Tab) 650 mg PO Q4H PRN PRN Reason: Pain MILD(1-3)/Fever >100.5/TURCIOS Albuterol (Albuterol 2.5 Mg/3 Ml Nebu) 2.5 mg IH Q4HRT PRN PRN Reason: Shortness Of Breath Last Admin: 04/23/21 15:18 Dose: 2.5 mg Documented by: Lipase/Protease/Amylase (Lipase 10,500/Protease 25,000/Amylase 43,750 (Units) Dr Vasquez) 1 each FEEDTUBE PRN PRN PRN Reason: For Clogged Feeding Tube Dextrose (Dextrose 50% In Water (25gm) 50 Ml Syringe) 50 ml IV Q30MIN PRN; P rotocol PRN Reason: Hypoglycemia Famotidine (Famotidine 20 Mg/2 Ml Inj) 20 mg IV QDAY AZIZA Last Admin: 04/23/21 09:00 Dose: 20 mg Documented by: Dextrose (D5w) 1,000 mls @ 125 mls/hr IV DIRECT AZIZA Last Admin: 04/23/21 20:25 Dose: 125 mls/hr Documented by: Ceftriaxone Sodium (Rocephin/Ns 1 Gm/50 Ml) 1 gm in 50 mls @ 100 mls/hr IV Q24H AZIZA; Protocol Last Infusion: 04/23/21 09:30 Dose: Infused Documented by: Insulin Human Isoph/Insulin Regular (Insulin Nph/Regular 70/30 Inj) 22 unit SUB-Q BIDDIAB [facility] Insulin Human Regular (Insulin Regular, Human 100 Units/1 Ml) 0 units SUB-Q Q6H [facility]; Protocol Last Admin: 04/23/21 18:20 Dose: 8 units Documented by: Metoclopramide HCl (Metoclopramide 10 Mg/2 Ml Inj) 5 mg IV Q6H PRN PRN Reason: Nausea And Vomiting Morphine Sulfate (Morphine 2 Mg/1 Ml Inj) 2 mg IV Q4H PRN PRN Reason: Pain, Moderate (4-6) Ondansetron HCl (Ondansetron 4 Mg/2 Ml Inj) 4 mg IV Q8H PRN PRN Reason: Nausea And Vomiting Simple Syrup (Simple Syrup 15 Ml) 15 ml FEEDTUBE PRN PRN PRN Reason: Hypoglycemia Simple Syrup (Simple Syrup 15 Ml) 30 ml FEEDTUBE PRN PRN PRN Reason: Hypoglycemia Sodium Bicarbonate (Sodium Bicarbonate 325 Mg Tab) 325 mg FEEDTUBE PRN PRN PRN Reason: For Clogged Feeding Tube Sodium Chloride (Sodium Chloride 0.9% 10 Ml Flush Syringe) 10 ml IV BID [facility] Last Admin: 04/23/21 09:01 Dose: 10 ml Documented by: Sodium Chloride (Sodium Chloride 0.9% 10 Ml Flush Syringe) 10 ml IV PRN PRN PRN Reason: LINE FLUSH Objective Vital Signs - 12hr 04/23/21 04/23/21 04/23/21 10:15 10:30 10:45 Temperature Pulse Rate 83 81 80 Pulse Rate [ Anterior Bilateral Upper Lobe] Pulse Rate [ Right Radial] Respiratory 37 H 34 H 37 H Rate Respiratory Rate [Anterior Bilateral Upper Lobe] Blood Pressure 105/49 100/40 100/40 O2 Sat by Pulse 90 87 89 Oximetry 04/23/21 04/23/21 04/23/21 11:00 11:15 11:30 Temperature Pulse Rate 83 80 82 Pulse Rate [ Anterior Bilateral Upper Lobe] Pulse Rate [ Right Radial] Respiratory 31 H 36 H 33 H Rate Respiratory Rate [Anterior Bilateral Upper Lobe] Blood Pressure 107/46 107/46 104/42 O2 Sat by Pulse 94 95 93 Oximetry 04/23/21 04/23/2104/23/22 11:45 12:00 12:15 Temperature Pulse Rate 82 79 80 Pulse Rate [ Anterior Bilateral Upper Lobe] Pulse Rate [ 79 Right Radial] Respiratory 32 H 35 H 35 H Rate Respiratory Rate [Anterior Bilateral Upper Lobe] Blood Pressure 104/42 112/37 112/37 O2 Sat by Pulse 94 94 94 Oximetry 04/23/21 04/23/21 04/23/21 12:30 12:45 13:00 Temperature Pulse Rate 77 101 H 97 H Pulse Rate [ Anterior Bilateral Upper Lobe] Pulse Rate [ Right Radial] Respiratory 33 H 29 H 28 H Rate Respiratory Rate [Anterior Bilateral Upper Lobe] Blood Pressure 121/43 121/43 121/43 O2 Sat by Pulse 94 94 91 Oximetry 04/23/21 04/23/21 04/23/21 13:15 13:30 13:45 Temperature Pulse Rate 102 H 99 H 91 H Pulse Rate [ Anterior Bilateral Upper Lobe] Pulse Rate [ Right Radial] Respiratory 26 H 24 23 Rate Respiratory Rate [Anterior Bilateral Upper Lobe] Blood Pressure 128/42 121/35 121/35 O2 Sat by Pulse 90 91 91 Oximetry 04/23/21 04/23/21 04/23/21 14:01 14:15 14:30 Temperature Pulse Rate 92 H 90 87 Pulse Rate [ Anterior Bilateral Upper Lobe] Pulse Rate [ Right Radial] Respiratory 22 24 25 H Rate Respiratory Rate [Anterior Bilateral Upper Lobe] Blood Pressure 93/37 93/43 95/34 O2 Sat by Pulse 93 97 96 Oximetry 04/23/21 04/23/21 04/23/21 14:45 15:00 15:15 Temperature Pulse Rate 87 100 H 103 H Pulse Rate [ Anterior Bilateral Upper Lobe] Pulse Rate [ Right Radial] Respiratory 25 H 23 21 Rate Respiratory Rate [Anterior Bilateral Upper Lobe] Blood Pressure 95/34 138/50 138/50 O2 Sat by Pulse 97 97 95 Oximetry 04/23/21 04/23/21 04/23/21 15:30 15:40 15:45 Temperature Pulse Rate 107 H 109 H Pulse Rate [ 108 H Anterior Bilateral Upper Lobe] Pulse Rate [ Right Radial] Respiratory 25 H 23 Rate Respiratory 24 Rate [Anterior Bilateral Upper Lobe] Blood Pressure 135/59 135/59 O2 Sat by Pulse 95 96 Oximetry 04/23/21 04/23/21 04/23/21 16:00 16:01 16:15 Temperature Pulse Rate 106 H 108 H 107 H Pulse Rate [ Anterior Bilateral Upper Lobe] Pulse Rate [ 106 H Right Radial] Respiratory 28 H 25 H 24 Rate Respiratory Rate [Anterior Bilateral Upper Lobe] Blood Pressure 135/59 135/59 O2 Sat by Pulse 95 97 97 Oximetry 04/23/21 04/23/21 04/23/21 16:30 16:45 17:00 Temperature Pulse Rate 109 H 110 H 111 H Pulse Rate [ Anterior Bilateral Upper Lobe] Pulse Rate [ Right Radial] Respiratory 19 26 H 18 Rate Respiratory Rate [Anterior Bilateral Upper Lobe] Blood Pressure 123/51 123/51 125/47 O2 Sat by Pulse 96 96 97 Oximetry 04/23/21 04/23/21 04/23/21 17:15 17:30 17:45 Temperature Pulse Rate 105 H 106 H 108 H Pulse Rate [ Anterior Bilateral Upper Lobe] Pulse Rate [ Right Radial] Respiratory 26 H 27 H 26 H Rate Respiratory Rate [Anterior Bilateral Upper Lobe] Blood Pressure 125/47 126/55 126/55 O2 Sat by Pulse 95 95 96 Oximetry 04/23/21 04/23/21 04/23/21 18:00 18:15 18:30 Temperature Pulse Rate 100 H 99 H 100 H Pulse Rate [ Anterior Bilateral Upper Lobe] Pulse Rate [ Right Radial] Respiratory 23 25 H 23 Rate Respiratory Rate [Anterior Bilateral Upper Lobe] Blood Pressure 123/53 123/53 110/54 O2 Sat by Pulse 96 96 96 Oximetry 04/23/21 04/23/21 04/23/21 18:45 19:00 19:15 Temperature Pulse Rate 101 H 101 H 106 H Pulse Rate [ Anterior Bilateral Upper Lobe] Pulse Rate [ Right Radial] Respiratory 25 H 25 H 24 Rate Respiratory Rate [Anterior Bilateral Upper Lobe] Blood Pressure 110/54 117/52 117/52 O2 Sat by Pulse 95 95 94 Oximetry 04/23/21 04/23/21 04/23/21 19:30 19:35 20:31 Temperature 98.1 F Pulse Rate 107 H Pulse Rate [ Anterior Bilateral Upper Lobe] Pulse Rate [ Right Radial] Respiratory 26 H Rate Respiratory Rate [Anterior Bilateral Upper Lobe] Blood Pressure 112/56 O2 Sat by Pulse 94 93 Oximetry Constitutional: other (critically ill, somnolent) Eyes: non-icteric ENT: oropharynx dry Effort: other (tachypneic but not labored) Ascultation: Bilateral: clear Cardiovascular: regular rate and rhythm Gastrointestinal: normoactive bowel sounds, soft, non-tender, non-distended Integumentary: normal Extremities: no cyanosis, no edema, pink and warm Neurologic: unable to assess Psychiatric: other (unable to assess) CBC and BMP: 04/23/21 08:13 04/23/21 18:17 ABG, PT/INR, D-dimer: ABG ABG pH 7.486 pH Units (7.350-7.450) H 04/21/21 15:47 ABG pCO2 31.6 mm Hg 04/21/21 15:47 ABG pO2 168.1 mm Hg (80.0-90.0) H 04/21/21 15:47 ABG O2 Saturation 99.1 % (95.0-99.0) H 04/21/21 15:47 Abnormal lab findings: Abnormal Labs 04/20/21 04/20/21 04/20/21 17:10 17:10 17:10 WBC 17.4 H RBC 5.19 H Hct 46.8 H MCH 27 L RDW 17.2 H Plt Count Seg Neuts % (Manual) 98.0 H Lymphocytes % (Manual) 2.0 L Nucleated RBC % 1.0 H Seg Neutrophils # Man 17.1 H Lymphocytes # (Manual) 0.3 L ABG pH ABG pO2 ABG O2 Saturation ABG Base Excess ABG Hemoglobin Oxyhemoglobin Sodium 173 H* Potassium Chloride 132.9 H Carbon Dioxide 17 L BUN 120 H Creatinine 4.2 H Glucose 762 H* POC Glucose Hemoglobin A1c Lactic Acid Calcium Magnesium 3.80 H AST 72 H ALT 63 H Alkaline Phosphatase 148 H Total Creatine Kinase 3697 H CK-MB (CK-2) 36.0 H Total Protein Albumin 2.2 L TSH Urine Creatinine Urine Total Protein 04/20/21 04/20/21 04/20/21 17:10 17:10 18:55 WBC RBC Hct MCH RDW Plt Count Seg Neuts % (Manual) Lymphocytes % (Manual) Nucleated RBC % Seg Neutrophils # Man Lymphocytes # (Manual) ABG pH ABG pO2 ABG O2 Saturation ABG Base Excess ABG Hemoglobin Oxyhemoglobin Sodium Potassium Chloride Carbon Dioxide BUN Creatinine Glucose POC Glucose 574 H Hemoglobin A1c Lactic Acid 2.60 H* Calcium Magnesium AST ALT Alkaline Phosphatase Total Creatine Kinase CK-MB (CK-2) Total Protein Albumin TSH 6.040 H Urine Creatinine Urine Total Protein 04/20/21 04/20/21 04/21/21 22:58 22:58 00:14 WBC RBC Hct MCH RDW Plt Count Seg Neuts % (Manual) Lymphocytes % (Manual) Nucleated RBC % Seg Neutrophils # Man Lymphocytes # (Manual) ABG pH ABG pO2 ABG O2 Saturation ABG Base Excess ABG Hemoglobin Oxyhemoglobin Sodium 172 H* Potassium 3.2 L Chloride 134.2 H Carbon Dioxide 17 L BUN 112 H Creatinine 3.8 H Glucose 803 H* POC Glucose > 600 H Hemoglobin A1c Lactic Acid Calcium 8.3 L Magnesium 3.50 H AST ALT Alkaline Phosphatase Total Creatine Kinase CK-MB (CK-2) Total Protein Albumin TSH Urine Creatinine Urine Total Protein 04/21/21 04/21/21 04/21/21 00:22 02:01 03:11 WBC RBC Hct MCH RDW Plt Count Seg Neuts % (Manual) Lymphocytes % (Manual) Nucleated RBC % Seg Neutrophils # Man Lymphocytes # (Manual) ABG pH ABG pO2 ABG O2 Saturation ABG Base Excess ABG Hemoglobin Oxyhemoglobin Sodium 176 H* 175 H* Potassium 2.9 L* 3.0 L Chloride 139.9 H 136.2 H Carbon Dioxide 17 L 19 L BUN 113 H 112 H Creatinine 3.9 H 3.6 H Glucose 729 H* 582 H* POC Glucose 404 H Hemoglobin A1c Lactic Acid Calcium Magnesium AST ALT Alkaline Phosphatase Total Creatine Kinase CK-MB (CK-2) Total Protein Albumin TSH Urine Creatinine Urine Total Protein 04/21/21 04/21/21 04/21/21 03:20 03:41 03:41 WBC 14.1 H RBC Hct MCH 27 L RDW 16.8 H Plt Count 114 L Seg Neuts % (Manual) 97.0 H Lymphocytes % (Manual) 3.0 L Nucleated RBC % 1.0 H Seg Neutrophils # Man 13.7 H Lymphocytes # (Manual) 0.4 L ABG pH ABG pO2 52.3 L ABG O2 Saturation 84.5 L ABG Base Excess -2.9 L ABG Hemoglobin Oxyhemoglobin 82.9 L Sodium 179 H* Potassium 2.9 L* Chloride 138.2 H Carbon Dioxide 20 L BUN 111 H Creatinine 3.7 H Glucose 465 H POC Glucose Hemoglobin A1c Lactic Acid Calcium Magnesium AST 73 H ALT 61 H Alkaline Phosphatase 144 H Total Creatine Kinase CK-MB (CK-2) Total Protein Albumin 2.5 L TSH Urine Creatinine Urine Total Protein 04/21/21 04/21/21 04/21/21 04:24 05:45 06:47 WBC RBC Hct MCH RDW Plt Count Seg Neuts % (Manual) Lymphocytes % (Manual) Nucleated RBC % Seg Neutrophils # Man Lymphocytes # (Manual) ABG pH ABG pO2 ABG O2 Saturation ABG Base Excess ABG Hemoglobin Oxyhemoglobin Sodium Potassium Chloride Carbon Dioxide BUN Creatinine Glucose POC Glucose 353 H 280 H 260 H Hemoglobin A1c Lactic Acid Calcium Magnesium AST ALT Alkaline Phosphatase Total Creatine Kinase CK-MB (CK-2) Total Protein Albumin TSH Urine Creatinine Urine Total Protein 04/21/21 04/21/21 04/21/21 08:01 11:11 12:51 WBC RBC Hct MCH RDW Plt Count Seg Neuts % (Manual) Lymphocytes % (Manual) Nucleated RBC % Seg Neutrophils # Man Lymphocytes # (Manual) ABG pH ABG pO2 ABG O2 Saturation ABG Base Excess ABG Hemoglobin Oxyhemoglobin Sodium Potassium Chloride Carbon Dioxide BUN Creatinine Glucose POC Glucose 68 L 146 H Hemoglobin A1c Lactic Acid Calcium Magnesium AST ALT Alkaline Phosphatase Total Creatine Kinase CK-MB (CK-2) Total Protein Albumin TSH Urine Creatinine 44.3 H Urine Total Protein 12 H 04/21/21 04/21/21 04/21/21 14:40 15:47 16:25 WBC RBC Hct MCH RDW Plt Count Seg Neuts % (Manual) Lymphocytes % (Manual) Nucleated RBC % Seg Neutrophils # Man Lymphocytes # (Manual) ABG pH 7.486 H ABG pO2 168.1 H ABG O2 Saturation 99.1 H ABG Base Excess ABG Hemoglobin 8.9 L Oxyhemoglobin Sodium Potassium Chloride Carbon Dioxide BUN Creatinine Glucose POC Glucose 186 H 172 H Hemoglobin A1c Lactic Acid Calcium Magnesium AST ALT Alkaline Phosphatase Total Creatine Kinase CK-MB (CK-2) Total Protein Albumin TSH Urine Creatinine Urine Total Protein 04/21/21 04/21/21 04/21/21 17:57 18:49 19:10 WBC RBC Hct MCH RDW Plt Count Seg Neuts % (Manual) Lymphocytes % (Manual) Nucleated RBC % Seg Neutrophils # Man Lymphocytes # (Manual) ABG pH ABG pO2 ABG O2 Saturation ABG Base Excess ABG Hemoglobin Oxyhemoglobin Sodium 174 H* Potassium 7.2 H* D Chloride 138.2 H Carbon Dioxide 21 L BUN 99 H Creatinine 4.0 H Glucose 157 H POC Glucose 143 H 126 H Hemoglobin A1c Lactic Acid Calcium Magnesium AST 134 H ALT 71 H Alkaline Phosphatase 135 H Total Creatine Kinase 3504 H CK-MB (CK-2) Total Protein Albumin 2.2 L TSH Urine Creatinine Urine Total Protein 04/21/21 04/21/21 04/21/21 20:26 20:53 21:52 WBC RBC Hct MCH RDW Plt Count Seg Neuts % (Manual) Lymphocytes % (Manual) Nucleated RBC % Seg Neutrophils # Man Lymphocytes # (Manual) ABG pH ABG pO2 ABG O2 Saturation ABG Base Excess ABG Hemoglobin Oxyhemoglobin Sodium Potassium Chloride Carbon Dioxide BUN Creatinine Glucose POC Glucose 190 H 116 H 135 H Hemoglobin A1c Lactic Acid Calcium Magnesium AST ALT Alkaline Phosphatase Total Creatine Kinase CK-MB (CK-2) Total Protein Albumin TSH Urine Creatinine Urine Total Protein 04/21/21 04/21/21 04/22/21 22:55 23:00 00:01 WBC RBC Hct MCH RDW Plt Count Seg Neuts % (Manual) Lymphocytes % (Manual) Nucleated RBC % Seg Neutrophils # Man Lymphocytes # (Manual) ABG pH ABG pO2 ABG O2 Saturation ABG Base Excess ABG Hemoglobin Oxyhemoglobin Sodium 176 H* Potassium Chloride 140.0 H Carbon Dioxide 20 L BUN 98 H Creatinine 3.9 H Glucose 206 H POC Glucose 158 H 182 H Hemoglobin A1c Lactic Acid Calcium Magnesium AST ALT Alkaline Phosphatase Total Creatine Kinase 3240 H CK-MB (CK-2) Total Protein Albumin TSH Urine Creatinine Urine Total Protein 04/22/21 04/22/21 04/22/21 00:39 00:58 01:04 WBC RBC Hct MCH RDW Plt Count Seg Neuts % (Manual) Lymphocytes % (Manual) Nucleated RBC % Seg Neutrophils # Man Lymphocytes # (Manual) ABG pH ABG pO2 ABG O2 Saturation ABG Base Excess ABG Hemoglobin Oxyhemoglobin Sodium 171 H* Potassium Chloride Carbon Dioxide BUN Creatinine Glucose POC Glucose 176 H 143 H Hemoglobin A1c Lactic Acid Calcium Magnesium AST ALT Alkaline Phosphatase Total Creatine Kinase CK-MB (CK-2) Total Protein Albumin TSH Urine Creatinine Urine Total Protein 04/22/21 04/22/21 04/22/21 04:52 06:07 06:09 WBC 11.2 H RBC Hct 44.3 H MCH 27 L RDW 17.1 H Plt Count 86 L Seg Neuts % (Manual) 86.0 H Lymphocytes % (Manual) 13.0 L Nucleated RBC % Seg Neutrophils # Man 9.6 H Lymphocytes # (Manual) ABG pH ABG pO2 ABG O2 Saturation ABG Base Excess ABG Hemoglobin Oxyhemoglobin Sodium Potassium Chloride Carbon Dioxide BUN Creatinine Glucose POC Glucose 206 H 163 H Hemoglobin A1c Lactic Acid Calcium Magnesium AST ALT Alkaline Phosphatase Total Creatine Kinase CK-MB (CK-2) Total Protein Albumin TSH Urine Creatinine Urine Total Protein 04/22/21 04/22/21 04/22/21 07:18 08:59 08:59 WBC RBC Hct MCH RDW Plt Count Seg Neuts % (Manual) Lymphocytes % (Manual) Nucleated RBC % Seg Neutrophils # Man Lymphocytes # (Manual) ABG pH ABG pO2 ABG O2 Saturation ABG Base Excess ABG Hemoglobin Oxyhemoglobin Sodium 169 H* Potassium 3.5 L Chloride 134.5 H Carbon Dioxide 20 L BUN 95 H Creatinine 3.6 H Glucose 151 H POC Glucose 158 H Hemoglobin A1c Lactic Acid Calcium Magnesium AST 121 H ALT 75 H Alkaline Phosphatase 137 H Total Creatine Kinase 3105 H CK-MB (CK-2) Total Protein 6.0 L Albumin 2.1 L TSH Urine Creatinine Urine Total Protein 04/22/21 04/22/21 04/22/21 10:24 12:20 13:19 WBC RBC Hct MCH RDW Plt Count Seg Neuts % (Manual) Lymphocytes % (Manual) Nucleated RBC % Seg Neutrophils # Man Lymphocytes # (Manual) ABG pH ABG pO2 ABG O2 Saturation ABG Base Excess ABG Hemoglobin Oxyhemoglobin Sodium Potassium Chloride Carbon Dioxide BUN Creatinine Glucose POC Glucose 107 H 131 H 147 H Hemoglobin A1c Lactic Acid Calcium Magnesium AST ALT Alkaline Phosphatase Total Creatine Kinase CK-MB (CK-2) Total Protein Albumin TSH Urine Creatinine Urine Total Protein 04/22/21 04/22/21 04/22/21 14:16 15:22 15:55 WBC RBC Hct MCH RDW Plt Count Seg Neuts % (Manual) Lymphocytes % (Manual) Nucleated RBC % Seg Neutrophils # Man Lymphocytes # (Manual) ABG pH ABG pO2 ABG O2 Saturation ABG Base Excess ABG Hemoglobin Oxyhemoglobin Sodium 169 H* Potassium Chloride 133.5 H Carbon Dioxide 19 L BUN 94 H Creatinine 3.8 H Glucose 150 H POC Glucose 154 H 136 H Hemoglobin A1c Lactic Acid Calcium Magnesium AST ALT Alkaline Phosphatase Total Creatine Kinase CK-MB (CK-2) Total Protein Albumin TSH Urine Creatinine Urine Total Protein 04/22/21 04/22/21 04/22/21 15:55 16:22 18:11 WBC RBC Hct MCH RDW Plt Count Seg Neuts % (Manual) Lymphocytes % (Manual) Nucleated RBC % Seg Neutrophils # Man Lymphocytes # (Manual) ABG pH ABG pO2 ABG O2 Saturation ABG Base Excess ABG Hemoglobin Oxyhemoglobin Sodium Potassium Chloride Carbon Dioxide BUN Creatinine Glucose POC Glucose 140 H Hemoglobin A1c 17.1 H Lactic Acid Calcium Magnesium AST ALT Alkaline Phosphatase Total Creatine Kinase 2497 H CK-MB (CK-2) Total Protein Albumin TSH Urine Creatinine Urine Total Protein 04/22/21 04/22/21 04/23/21 18:26 23:19 00:27 WBC RBC Hct MCH RDW Plt Count Seg Neuts % (Manual) Lymphocytes % (Manual) Nucleated RBC % Seg Neutrophils # Man Lymphocytes # (Manual) ABG pH ABG pO2 ABG O2 Saturation ABG Base Excess ABG Hemoglobin Oxyhemoglobin Sodium 162 H* Potassium Chloride Carbon Dioxide BUN Creatinine Glucose POC Glucose 146 H 188 H Hemoglobin A1c Lactic Acid Calcium Magnesium AST ALT Alkaline Phosphatase Total Creatine Kinase CK-MB (CK-2) Total Protein Albumin TSH Urine Creatinine Urine Total Protein 04/23/21 04/23/21 04/23/21 05:23 07:50 08:13 WBC RBC Hct MCH RDW Plt Count Seg Neuts % (Manual) Lymphocytes % (Manual) Nucleated RBC % Seg Neutrophils # Man Lymphocytes # (Manual) ABG pH ABG pO2 ABG O2 Saturation ABG Base Excess ABG Hemoglobin Oxyhemoglobin Sodium Potassium Chloride Carbon Dioxide BUN Creatinine Glucose POC Glucose 212 H 239 H Hemoglobin A1c Lactic Acid Calcium Magnesium AST ALT Alkaline Phosphatase Total Creatine Kinase 1803 H CK-MB (CK-2) Total Protein Albumin TSH Urine Creatinine Urine Total Protein 04/23/21 04/23/21 04/23/21 08:13 08:13 12:06 WBC 11.9 H RBC Hct MCH 26 L RDW 16.5 H Plt Count 72 L Seg Neuts % (Manual) 80.0 H Lymphocytes % (Manual) 5.0 L Nucleated RBC % Seg Neutrophils # Man 9.5 H Lymphocytes # (Manual) 0.6 L ABG pH ABG pO2 ABG O2 Saturation ABG Base Excess ABG Hemoglobin Oxyhemoglobin Sodium 164 H* Potassium Chloride 128.0 H Carbon Dioxide 21 L BUN 93 H Creatinine 3.8 H Glucose 293 H POC Glucose 311 H Hemoglobin A1c Lactic Acid Calcium Magnesium AST 99 H ALT 70 H Alkaline Phosphatase 147 H Total Creatine Kinase CK-MB (CK-2) Total Protein 6.1 L Albumin 2.0 L TSH Urine Creatinine Urine Total Protein 04/23/21 04/23/21 17:35 18:17 WBC RBC Hct MCH RDW Plt Count Seg Neuts % (Manual) Lymphocytes % (Manual) Nucleated RBC % Seg Neutrophils # Man Lymphocytes # (Manual) ABG pH ABG pO2 ABG O2 Saturation ABG Base Excess ABG Hemoglobin Oxyhemoglobin Sodium 160 H Potassium Chloride Carbon Dioxide BUN Creatinine Glucose POC Glucose 370 H Hemoglobin A1c Lactic Acid Calcium Magnesium AST ALT Alkaline Phosphatase Total Creatine Kinase CK-MB (CK-2) Total Protein Albumin TSH Urine Creatinine Urine Total Protein Chest x-ray: report reviewed, image reviewed
[2021-04-24] MEDS: DEXTROSE 5% IN WATER 1,000 ML IV SCH ×2 (03:39→16:35)
[2021-04-24] MEDS: INSULIN REGULAR, HUMAN 100 UNITS/1 ML SUB-Q SCH (06:17)
[2021-04-24] MEDS ORDERED: INSULIN NPH/REGULAR 70/30 INJ SUB-Q SCH ×2 (08:00→17:00)
[2021-04-24] MEDS: cefTRIAXone/NS 1 GM/50 ML 1 GM/50 ML BAG IV SCH (09:27)
[2021-04-24] MEDS: FAMOTIDINE 20 MG/2 ML INJ IV SCH (09:28)
[2021-04-24 09:54] LABS: Mean Corpuscular HGB Conc 31 % (30-34); Mean Corpuscular Volume 87 fl (79-97); Red Blood Count 4.31 M/mm3 (3.65-5.03)
[2021-04-24 09:55] LABS: Hematocrit 37.5 % (30.3-42.9); Hemoglobin 11.5 gm/dl (10.1-14.3); Platelet Count 58 K/mm3 (140-440)
[2021-04-24 10:14] LABS: Albumin 1.5 g/dL (3.9-5); Calcium 8.9 mg/dL (8.4-10.2)
--- NOTE | 2021-04-24 10:24 | Progress Note ---
Assessment and Plan (1) Acute metabolic encephalopathy (2) Diabetic hyperosmolar non-ketotic state 3) SYED (acute kidney injury) (4) Dehydration (5) Hypernatremia (6) Rhabdomyolysis (7) Hypernatremia 8) GERD (gastroesophageal reflux disease) (9) Metabolic acidosis (10) Leukocytosis Continue D5W Na trending down Cr slightly down. Monitor. check Na every 8 hours, avoid correction more than 10 mmol/l in 24 hoursNo indication for UNDER CUTTER UA bland will cont to monitor CK, trending down renally dose meds Strict I&O In ICU Subjective Date of service: 04/24/21 Principal diagnosis: Acute respiratory failure Interval history: Making urine. Na high. In ICU. Objective - Exam Narrative Exam: General appearance: cachectic EENT: mucous membranes dry Neck: Present: neck supple Respiratory: Decreased Breath Sounds Heart: tachycardia Gastrointestinal: Present: normoactive bowel sounds. Absent: tenderness, distended, masses Integumentary: no rash, warm and dry Neurologic: other (does not follow commands) Musculoskeletal: Present: other (no edema in BLE) - Vital Signs Vital signs: Vital Signs - 12hr 04/23/21 04/23/21 04/23/21 22:30 22:45 23:00 Temperature Pulse Rate 88 91 H 91 H Pulse Rate [ Right Radial] Respiratory 31 H 31 H 33 H Rate Blood Pressure 93/45 93/45 101/47 O2 Sat by Pulse 93 94 94 Oximetry 04/23/21 04/23/21 04/23/21 23:03 23:15 23:30 Temperature Pulse Rate 88 90 92 H Pulse Rate [ Right Radial] Respiratory 28 H 28 H 30 H Rate Blood Pressure 101/47 101/47 93/40 O2 Sat by Pulse 94 95 94 Oximetry 04/23/21 04/23/21 04/24/21 23:45 23:46 00:00 Temperature 98.1 F Pulse Rate 106 H 92 H Pulse Rate [ 106 H Right Radial] Respiratory 28 H 28 H Rate Blood Pressure 93/40 101/41 O2 Sat by Pulse 95 94 Oximetry 04/24/21 04/24/21 04/24/21 00:15 00:30 00:45 Temperature Pulse Rate 95 H 92 H 90 Pulse Rate [ Right Radial] Respiratory 28 H 28 H 31 H Rate Blood Pressure 101/41 101/41 101/41 O2 Sat by Pulse 93 95 95 Oximetry 04/24/21 04/24/21 04/24/21 01:00 01:15 01:30 Temperature Pulse Rate 92 H 93 H 90 Pulse Rate [ Right Radial] Respiratory 31 H 29 H 30 H Rate Blood Pressure 116/47 116/47 102/50 O2 Sat by Pulse 93 94 96 Oximetry 04/24/21 04/24/21 04/24/21 01:45 02:00 02:15 Temperature Pulse Rate 107 H 101 H 98 H Pulse Rate [ Right Radial] Respiratory 33 H 29 H 29 H Rate Blood Pressure 102/50 121/46 121/46 O2 Sat by Pulse 95 94 96 Oximetry 04/24/21 04/24/21 04/24/21 02:30 02:45 03:00 Temperature Pulse Rate 104 H 103 H 99 H Pulse Rate [ Right Radial] Respiratory 30 H 31 H 26 H Rate Blood Pressure 123/46 123/46 116/48 O2 Sat by Pulse 95 94 Oximetry 04/24/21 04/24/21 04/24/21 03:15 03:31 03:42 Temperature 99 F Pulse Rate 99 H 105 H Pulse Rate [ Right Radial] Respiratory 31 H 35 H Rate Blood Pressure 116/48 110/53 O2 Sat by Pulse 95 94 Oximetry 04/24/21 04/24/21 04/24/21 03:45 04:00 04:01 Temperature Pulse Rate 104 H 104 H 102 H Pulse Rate [ 106 H Right Radial] Respiratory 25 H 26 H 31 H Rate Blood Pressure 110/53 120/58 O2 Sat by Pulse 94 95 94 Oximetry 04/24/21 04/24/21 04/24/21 04:15 04:30 04:45 Temperature Pulse Rate 103 H 105 H 102 H Pulse Rate [ Right Radial] Respiratory 34 H 34 H 34 H Rate Blood Pressure 120/58 119/57 119/57 O2 Sat by Pulse 94 100 95 Oximetry 04/24/21 04/24/21 04/24/21 05:00 05:15 05:31 Temperature Pulse Rate 99 H 102 H 101 H Pulse Rate [ Right Radial] Respiratory 29 H 33 H 32 H Rate Blood Pressure 120/36 120/36 120/36 O2 Sat by Pulse 93 96 Oximetry 04/24/21 04/24/21 04/24/21 05:45 06:00 06:15 Temperature Pulse Rate 105 H 102 H 102 H Pulse Rate [ Right Radial] Respiratory 31 H 28 H 31 H Rate Blood Pressure 127/66 117/75 117/75 O2 Sat by Pulse 97 96 95 Oximetry 04/24/21 04/24/21 04/24/21 06:30 06:45 07:00 Temperature Pulse Rate 105 H 102 H 101 H Pulse Rate [ Right Radial] Respiratory 33 H 32 H 36 H Rate Blood Pressure 136/78 136/78 125/73 O2 Sat by Pulse 94 95 94 Oximetry 04/24/21 04/24/21 04/24/21 07:15 07:30 07:45 Temperature Pulse Rate 90 93 H 94 H Pulse Rate [ Right Radial] Respiratory 25 H 29 H 20 Rate Blood Pressure 125/73 121/68 121/68 O2 Sat by Pulse 92 92 Oximetry 04/24/21 04/24/21 04/24/21 08:00 08:15 08:30 Temperature 97.5 F L Pulse Rate 94 H 83 101 H Pulse Rate [ Right Radial] Respiratory 28 H 27 H 31 H Rate Blood Pressure 140/68 140/68 129/79 O2 Sat by Pulse 92 93 94 Oximetry 04/24/21 04/24/21 04/24/21 08:45 09:00 09:09 Temperature Pulse Rate 98 H 93 H Pulse Rate [ Right Radial] Respiratory 27 H 26 H Rate Blood Pressure 129/79 124/60 O2 Sat by Pulse 96 95 94 Oximetry - Lab 04/24/21 06:00 04/24/21 08:15 Most recent lab results ABG pH 7.486 pH Units (7.350-7.450) H 04/21/21 15:47 ABG pCO2 31.6 mm Hg 04/21/21 15:47 ABG pO2 168.1 mm Hg (80.0-90.0) H 04/21/21 15:47 ABG HCO3 23.3 mmol/L (20.0-26.0) 04/21/21 15:47 ABG O2 Saturation 99.1 % (95.0-99.0) H 04/21/21 15:47 Calcium 8.9 mg/dL (8.4-10.2) 04/24/21 08:15 Phosphorus 4.10 mg/dL (2.5-4.5) 04/24/21 06:00 Magnesium 2.90 mg/dL (1.7-2.3) H 04/24/21 06:00 Urine Creatinine 44.3 mg/dL (0.1-20.0) H 04/21/21 08:01 Urine Sodium 71 mmol/L 04/21/21 08:01 Urine Total Protein 12 mg/dL (5-11.8) H 04/21/21 08:01 Medications & Allergies - Medications Allergies/Adverse Reactions: Allergies No Known Allergies Allergy (Unverified 04/20/21 14:35) Active Medications: Generic Name Dose Route Start Last Admin Trade Name Freq PRN Reason Stop Dose Admin Acetaminophen 650 mg 04/20/21 21:31 Acetaminophen 325 Mg Tab PO Q4H PRN Pain MILD(1-3)/Fever >100.5/TURCIOS Albuterol 2.5 mg 04/22/21 14:49 04/23/21 15:18 Albuterol 2.5 Mg/3 Ml Nebu IH 2.5 mg Q4HRT PRN Administration Shortness Of Breath Lipase/Protease/Amylase 1 each 04/22/21 16:30 Lipase 10,500/Protease 25,000/Amylase 43,750 (Units) Dr Vasquez FEEDTUBE PRN PRN For Clogged Feeding Tube Dextrose 50 ml 04/22/21 15:01 Dextrose 50% In Water (25gm) 50 Ml Syringe IV Q30MIN PRN Hypoglycemia Protocol Famotidine 20 mg 04/21/21 18:00 04/24/21 09:28 Famotidine 20 Mg/2 Ml Inj IV 20 mg QDAY AZIZA Administration Dextrose 1,000 mls @ 125 mls/hr 04/21/21 02:00 04/24/21 03:39 D5w IV 125 mls/hr DIRECT AZIZA Administration Ceftriaxone Sodium 1 gm in 50 mls @ 100 mls/hr 04/21/21 09:00 04/24/21 09:27 Rocephin/Ns 1 Gm/50 Ml IV 100 mls/hr Q24H AZIZA Administration Protocol Insulin Human Isoph/Insulin Regular 25 unit 04/24/21 17:00 Insulin Nph/Regular 70/30 Inj SUB-Q BIDDIAB AZIZA Insulin Human Regular 0 units 04/23/21 06:00 04/24/21 06:17 Insulin Regular, Human 100 Units/1 Ml SUB-Q 8 units Q6H AZIZA Administration Protocol Metoclopramide HCl 5 mg 04/20/21 21:31 Metoclopramide 10 Mg/2 Ml Inj IV Q6H PRN Nausea And Vomiting Morphine Sulfate 2 mg 04/20/21 21:31 Morphine 2 Mg/1 Ml Inj IV Q4H PRN Pain, Moderate (4-6) Ondansetron HCl 4 mg 04/20/21 21:31 Ondansetron 4 Mg/2 Ml Inj IV Q8H PRN Nausea And Vomiting Simple Syrup 15 ml 04/22/21 16:30 Simple Syrup 15 Ml FEEDTUBE PRN PRN Hypoglycemia Simple Syrup 30 ml 04/22/21 16:30 Simple Syrup 15 Ml FEEDTUBE PRN PRN Hypoglycemia Sodium Bicarbonate 325 mg 04/22/21 16:30 Sodium Bicarbonate 325 Mg Tab FEEDTUBE PRN PRN For Clogged Feeding Tube Sodium Chloride 10 ml 04/20/21 22:00 04/24/21 09:28 Sodium Chloride 0.9% 10 Ml Flush Syringe IV 10 ml BID AZIZA Administration Sodium Chloride 10 ml 04/20/21 21:31 Sodium Chloride 0.9% 10 Ml Flush Syringe IV PRN PRN LINE FLUSH
[2021-04-24 10:58] LABS: Band Neutrophils # (Manual) 0.1 K/mm3; Total Cells Counted 100
[2021-04-24 10:59] LABS: Platelet Estimate Consistent w Auto; RBC Morphology Normal
[2021-04-24] MEDS ORDERED: INSULIN REGULAR, HUMAN 100 UNITS/1 ML IV ONE (11:00)
[2021-04-24] MEDS ORDERED: DEXTROSE 50% IN WATER (25GM) 50 ML SYRINGE IV PRN (11:36)
--- NOTE | 2021-04-24 11:46 | Progress Note ---
Assessment and Plan Assessment and plan: This is a 80-year-old female usp resident with GERD, hypothyroidism, hyperlipidemia, schizophrenia and dementia admitted with hypothermia, hyponatremia, hypokalemia, lactic acidosis, acute kidney injury, rhabdomyolysis and hyperosmolar nonketotic state. Neuro: Acute metabolic encephalopathy, normal pressure hydrocephalus -CT head shows lateral ventricles and third ventricle dilation, raises possibility of normal pressure hydrocephalus -Neurology and neurosurgery consulted, appreciate recommendations -neurosurgery has no acute interventions -Maintain sleep-wake cycle -Avoid delirium -Correct electrolyte derangements -Hold off on restarting home antipsychotic medications when obtained Cardio: NAD -Blood pressure monitoring per protocol -MIVF Respiratory: Acute hypoxic respiratory failure -s/p Bipap -currently on ventimask -s/p racimec epi x2 04/22 and 04/23 -Supplemental oxygen as needed -SPO2 monitoring -Pulmonary hygiene -Repeat CXR shows increased interstitial prominence of densities in bilateral lungs GI: Hypoalbuminemia, transaminitis -Presented with transaminitis -Trend LFTs -Ntr consult for TF -FWF 110ml q 4 -24 hours -1140 ml -BR: Senokot -PPI -Nutritional supplementations : Severe hypernatremia (slowly improving), hyperchloremia (slowly improving), metabolic acidosis, acute kidney injury likely secondary to vasomotor nephropathy, urinary retention, rhabdomyolysis -FeNA 0.50 indicating prerenal sate -Nephrology and CCM consulted, appreciate recommendations -Luther catheter placed for strict intake and output -Avoid nephrotoxic medication -Trend BMP -Serial sodium checks -Renally dose medications -Trend CK -renal US WNL per read ID: Hypothermia (resovled), lactic acidosis (resolved) -COVID-19 PCR negative -Blood culture x2 NGTD -Antibiotic therapy with Rocephin -Monitor WBC and fever curve -S/p 2 L IV fluid in the ED Endo: s/p HHNK -TF -s/p Insulin drip -insulin gtt restarted today -accucheck q1 hr per protocol -SSI -dc 70/30/scheduled TID insulin which were both increased and given IV insulin but NO RESPONSE -TSH 6.04, T4 0.93 -Avoid hypoglycemia Heme: Leukocytosis, thrombocytopenia -Trend CBC -Transfuse to hemoglobin less than 7 -Anticoagulation held d/t plts -SCD to bilateral lower extremities while in bed -Monitor for bleeding -r/o DVT -BUE dopplar US pending The high probability of a clinically significant, sudden or life threatening deterioration of the [multi] system(s) required my full and direct attention, intervention and personal management. The aggregate critical care time was [60] minutes. This time is in addition to time spent performing reported procedures but includes the following: [x] Data Review and interpretation [x] Patient assessment and monitoring of vital signs [x] Documentation [x] Medication orders and management Disposition Plan: icu Total Time Spent with Patient (Minutes): 60 History Interval history: This is a 80-year-old female who was usp resident at [place] with GERD, hypothyroidism, hyperlipidemia, schizophrenia and dementia presented to the emergency department on 04/20 after being found unresponsive by the staff via EMS. Per EMS glucose levels read as high. Work-up in the emergency department revealed severe hypernatremia, leukocytosis, metabolic acidosis, hyperchloremia, elevated BUN/creatinine, lactic acidosis and hyperglycemia. Patient was also hypothermic on admit. CT head showed findings suggestive of the possibility of normal pressure hydrocephalus. Patient was admitted to the hospitalist service with acute metabolic encephalopathy, diabetic hyperosmolar nonketotic state, acute kidney injury, hypernatremia, rhabdomyolysis and leukocytosis with consults to nephrology and CCM. 04/21: Given 1 L LR bolus per nephrology and D5W increased to 125 mL's per hour, COVID-19 PCR pending, CXR and ABG ordered as patient was weaned from BiPAP to 3 L nasal cannula however was uptitrated back to nonrebreather. Will obtain blood cultures x2 given her leukocytosis and hypothermia. Replace potassium. Neurosurgery and neurology consulted and Luther catheter placed. 04/22: Improvement to sodium noted, slight hypokalemia which will be repleted, slight improvement to renal function, LFTs and rhabdomyolysis. Seen by neurosurgery today. Patient still making urine. transition to ssi and start TF as AG 15 04/23/2021: Given racemic epinephrine again due to stridor, continue IV fluids per nephrology, continue to trend sodium and BMP. 04/24/2021: 70/30 increased d/t hyperglycemia but recent BMP showed BG>300, gave additional 5 units IV insulin and ordered 5 units TID scheduled. However after IV insulin her PCOT was 400. Start on insulin gtt for hyperglycemia. Per RN she was not of IV D5 overniught d/t having one IV which was needed for emergency. Day RN did start dextrose. Remains with hyperglycemia. Hospitalist Physical - Constitutional Vitals: Temp Pulse Resp BP Pulse Ox 97.5 F L 93 H 26 H 124/60 94 04/24/21 08:00 04/24/21 09:00 04/24/21 09:00 04/24/21 09:00 04/24/21 09:09 General appearance: Present: no acute distress, other (Lying in bed unresponsive) - EENT Eyes: Present: PERRL, EOM intact ENT: hearing intact, clear oral mucosa - Neck Neck: Present: normal ROM - Respiratory Respiratory effort: normal Respiratory: bilateral: CTA - Cardiovascular Rhythm: regular Heart Sounds: Present: S1 & S2. Absent: systolic murmur, diastolic murmur - Extremities Extremities: no ischemia, pulses intact, pulses symmetrical Extremity abnormal: edema (to bilateral UE) Peripheral Pulses: within normal limits - Abdominal General gastrointestinal: soft, non-tender, non-distended, normal bowel sounds - Integumentary Integumentary: Present: warm, dry - Psychiatric Psychiatric: cooperative - Neurologic Neurologic: moves all extremities - Allied Health Allied health notes reviewed: nursing, RT HEART Score - HEART Score Troponin: Troponin T 0.021 ng/mL (0.00-0.029) 04/20/21 17:10 Results - Labs CBC & Chem 7: 04/24/21 06:00 04/24/21 08:15 Labs: Laboratory Last Values WBC 9.7 K/mm3 (4.5-11.0) 04/24/21 06:00 RBC 4.31 M/mm3 (3.65-5.03) 04/24/21 06:00 Hgb 11.5 gm/dl (10.1-14.3) 04/24/21 06:00 Hct 37.5 % (30.3-42.9) 04/24/21 06:00 MCV 87 fl (79-97) 04/24/21 06:00 MCH 27 pg (28-32) L 04/24/21 06:00 MCHC 31 % (30-34) 04/24/21 06:00 RDW 17.0 % (13.2-15.2) H 04/24/21 06:00 Plt Count 58 K/mm3 (140-440) L 04/24/21 06:00 Add Manual Diff Complete 04/24/21 06:00 Total Counted 100 04/24/21 06:00 Seg Neutrophils % Server Developer 04/24/21 06:00 Seg Neuts % (Manual) 80.0 % (40.0-70.0) H 04/23/21 08:13 Band Neutrophils % 1.0 % 04/24/21 06:00 Lymphocytes % (Manual) 2.0 % (13.4-35.0) L 04/24/21 06:00 Monocytes % (Manual) 3.0 % (0.0-7.3) 04/24/21 06:00 Eosinophils % (Manual) 1.0 % (0.0-4.3) 04/24/21 06:00 Metamyelocytes % 1.0 % 04/24/21 06:00 Myelocytes % 8.0 % 04/23/21 08:13 Nucleated RBC % Not Reportable 04/24/21 06:00 Seg Neutrophils # Man 8.9 K/mm3 (1.8-7.7) H 04/24/21 06:00 Band Neutrophils # 0.1 K/mm3 04/24/21 06:00 Lymphocytes # (Manual) 0.2 K/mm3 (1.2-5.4) L 04/24/21 06:00 Abs React Lymphs (Man) 0.0 K/mm3 04/24/21 06:00 Monocytes # (Manual) 0.3 K/mm3 (0.0-0.8) 04/24/21 06:00 Eosinophils # (Manual) 0.1 K/mm3 (0.0-0.4) 04/24/21 06:00 Basophils # (Manual) 0.0 K/mm3 (0.0-0.1) 04/24/21 06:00 Metamyelocytes # 0.1 K/mm3 04/24/21 06:00 Myelocytes # 0.0 K/mm3 04/24/21 06:00 Promyelocytes # 0.0 K/mm3 04/24/21 06:00 Blast Cells # 0.0 K/mm3 04/24/21 06:00 WBC Morphology Not Reportable 04/24/21 06:00 WBC Morphology TNR 04/24/21 06:00 Hypersegmented Neuts Not Reportable 04/24/21 06:00 Hyposegmented Neuts Not Reportable 04/24/21 06:00 Hypogranular Neuts Not Reportable 04/24/21 06:00 Smudge Cells Not Reportable 04/24/21 06:00 Toxic Granulation Not Reportable 04/24/21 06:00 Toxic Vacuolation Not Reportable 04/24/21 06:00 Dohle Bodies Not Reportable 04/24/21 06:00 Pelger-Huet Anomaly Not Reportable 04/24/21 06:00 Moni Rods Not Reportable 04/24/21 06:00 Platelet Estimate Consistent w auto 04/24/21 06:00 Clumped Platelets Not Reportable 04/24/21 06:00 Plt Clumps, EDTA Not Reportable 04/24/21 06:00 Large Platelets Not Reportable 04/24/21 06:00 Giant Platelets Not Reportable 04/24/21 06:00 Platelet Satelliting Not Reportable 04/24/21 06:00 Plt Morphology Comment Not Reportable 04/24/21 06:00 RBC Morphology Normal 04/24/21 06:00 Dimorphic RBCs Not Reportable 04/24/21 06:00 Polychromasia Not Reportable 04/24/21 06:00 Hypochromasia Not Reportable 04/24/21 06:00 Poikilocytosis Not Reportable 04/24/21 06:00 Anisocytosis Not Reportable 04/24/21 06:00 Microcytosis Not Reportable 04/24/21 06:00 Macrocytosis Not Reportable 04/24/21 06:00 Spherocytes Not Reportable 04/24/21 06:00 Pappenheimer Bodies Not Reportable 04/24/21 06:00 Sickle Cells Not Reportable 04/24/21 06:00 Target Cells Not Reportable 04/24/21 06:00 Tear Drop Cells Not Reportable 04/24/21 06:00 Ovalocytes Not Reportable 04/24/21 06:00 Helmet Cells Not Reportable 04/24/21 06:00 [place] Bodies Not Reportable 04/24/21 06:00 [place] Rings Not Reportable 04/24/21 06:00 [place] Cells Not Reportable 04/24/21 06:00 Bite Cells Not Reportable 04/24/21 06:00 Crenated Cell Not Reportable 04/24/21 06:00 Elliptocytes Not Reportable 04/24/21 06:00 Acanthocytes (Spur) Not Reportable 04/24/21 06:00 Rouleaux Not Reportable 04/24/21 06:00 Hemoglobin C Crystals Not Reportable 04/24/21 06:00 Schistocytes Not Reportable 04/24/21 06:00 Malaria parasites Not Reportable 04/24/21 06:00 Herrera Bodies Not Reportable 04/24/21 06:00 Hem Pathologist Commnt No 04/24/21 06:00 ABG pH 7.486 pH Units (7.350-7.450) H 04/21/21 15:47 ABG pCO2 31.6 mm Hg 04/21/21 15:47 ABG pO2 168.1 mm Hg (80.0-90.0) H 04/21/21 15:47 ABG HCO3 23.3 mmol/L (20.0-26.0) 04/21/21 15:47 ABG O2 Saturation 99.1 % (95.0-99.0) H 04/21/21 15:47 ABG O2 Content 12.7 (0.0-44) 04/21/21 15:47 ABG Base Excess 0.3 mmol/L (-2.0-3.0) 04/21/21 15:47 ABG Hemoglobin 8.9 gm/dl (12.0-16.0) L 04/21/21 15:47 ABG Carboxyhemoglobin 1.0 % (0.0-5.0) 04/21/21 15:47 ABG Methemoglobin 0.6 % (0.0-1.5) 04/21/21 15:47 VBG pH 7.397 (7.320-7.420) 04/20/21 17:10 Oxyhemoglobin 97.5 % (95.0-99.0) 04/21/21 15:47 FiO2 100 % 04/21/21 15:47 Sodium 159 mmol/L (137-145) H 04/24/21 08:15 Potassium 4.1 mmol/L (3.6-5.0) 04/24/21 08:15 Chloride 125.6 mmol/L (98-107) H 04/24/21 08:15 Carbon Dioxide 19 mmol/L (22-30) L 04/24/21 08:15 Anion Gap 19 mmol/L 04/24/21 08:15 BUN 94 mg/dL (7-17) H 04/24/21 08:15 Creatinine 3.7 mg/dL (0.6-1.2) H 04/24/21 08:15 Estimated GFR 14 ml/min 04/24/21 08:15 BUN/Creatinine Ratio 25 % 04/24/21 08:15 Glucose 514 mg/dL (65-100) H* 04/24/21 08:15 POC Glucose 422 mg/dL (70-105) H 04/24/21 11:34 Hemoglobin A1c 17.1 % (4-6) H 04/22/21 15:55 Lactic Acid 1.90 mmol/L (0.7-2.0) 04/20/21 19:56 Calcium 8.9 mg/dL (8.4-10.2) 04/24/21 08:15 Phosphorus 4.10 mg/dL (2.5-4.5) 04/24/21 06:00 Magnesium 2.90 mg/dL (1.7-2.3) H 04/24/21 06:00 Total Bilirubin 0.40 mg/dL (0.1-1.2) 04/24/21 08:15 AST 39 units/L (5-40) 04/24/21 08:15 ALT 61 units/L (7-56) H 04/24/21 08:15 Alkaline Phosphatase 155 units/L (35-129) H 04/24/21 08:15 Ammonia 29.0 umol/L (25-60) 04/20/21 17:10 Total Creatine Kinase 1803 units/L (30-135) H 04/23/21 08:13 CK-MB (CK-2) 36.0 ng/mL (0.0-4.0) H 04/20/21 17:10 CK-MB (CK-2) Rel Index 0.9 (0-4) 04/20/21 17:10 Troponin T 0.021 ng/mL (0.00-0.029) 04/20/21 17:10 Total Protein 6.1 g/dL (6.3-8.2) L 04/24/21 08:15 Albumin 1.5 g/dL (3.9-5) L 04/24/21 08:15 Albumin/Globulin Ratio 0.3 % 04/24/21 08:15 TSH 6.040 mlU/mL (0.270-4.200) H 04/20/21 17:10 Free T4 0.93 ng/dL (0.76-1.46) 04/20/21 17:10 Urine Color Yellow (Yellow) 04/20/21 Unknown Urine Turbidity Slightly-cloudy (Clear) 04/20/21 Unknown Urine pH 5.0 (5.0-7.0) 04/20/21 Unknown Ur Specific [place] 1.016 (1.003-1.030) 04/20/21 Unknown Urine Protein <15 mg/dl mg/dL (Negative) 04/20/21 Unknown Urine Glucose (UA) >=500 mg/dL (Negative) 04/20/21 Unknown Urine Ketones Tr mg/dL (Negative) 04/20/21 Unknown Urine Blood Mod (Negative) 04/20/21 Unknown Urine Nitrite Neg (Negative) 04/20/21 Unknown Urine Bilirubin Neg (Negative) 04/20/21 Unknown Urine Urobilinogen < 2.0 mg/dL (<2.0) 04/20/21 Unknown Ur Leukocyte Esterase Neg (Negative) 04/20/21 Unknown Urine WBC (Auto) 3.0 /HPF (0.0-6.0) 04/20/21 Unknown Urine RBC (Auto) 1.0 /HPF (0.0-6.0) 04/20/21 Unknown Urine Mucus Few /HPF 04/20/21 Unknown Urine Osmolality 446 Mosm/kg 04/21/21 08:01 Urine Creatinine 44.3 mg/dL (0.1-20.0) H 04/21/21 08:01 Urine Sodium 71 mmol/L 04/21/21 08:01 Urine Total Protein 12 mg/dL (5-11.8) H 04/21/21 08:01 Plasma/Serum Alcohol < 0.01 % (0-0.07) 04/20/21 17:10 Coronavirus (PCR) Negative (Negative) 04/21/21 Unknown Microbiology: Microbiology 04/21/21 14:04 Peripheral/Venous Blood Culture - Preliminary NO GROWTH AFTER 48 HOURS 04/21/21 14:04 Peripheral/Venous Blood Culture - Preliminary NO GROWTH AFTER 48 HOURS Luther/IV: Voiding Method Indwelling Catheter Active Medications - Current Medications Current Medications: Generic Name Dose Route Start Last Admin Trade Name Freq PRN Reason Stop Dose Admin Acetaminophen 650 mg 04/20/21 21:31 Acetaminophen 325 Mg Tab PO Q4H PRN Pain MILD(1-3)/Fever >100.5/TURCIOS Albuterol 2.5 mg 04/22/21 14:49 04/23/21 15:18 Albuterol 2.5 Mg/3 Ml Nebu IH 2.5 mg Q4HRT PRN Administration Shortness Of Breath Lipase/Protease/Amylase 1 each 04/22/21 16:30 Lipase 10,500/Protease 25,000/Amylase 43,750 (Units) Dr Vasquez FEEDTUBE PRN PRN For Clogged Feeding Tube Dextrose 50 ml 04/22/21 15:01 Dextrose 50% In Water (25gm) 50 Ml Syringe IV Q30MIN PRN Hypoglycemia Protocol Dextrose 50 ml 04/24/21 11:36 Dextrose 50% In Water (25gm) 50 Ml Syringe IV Q30MIN PRN Hypoglycemia Protocol Famotidine 20 mg 04/21/21 18:00 04/24/21 09:28 Famotidine 20 Mg/2 Ml Inj IV 20 mg QDAY AZIZA Administration Dextrose 1,000 mls @ 125 mls/hr 04/21/21 02:00 04/24/21 03:39 D5w IV 125 mls/hr DIRECT AZIZA Administration Ceftriaxone Sodium 1 gm in 50 mls @ 100 mls/hr 04/21/21 09:00 04/24/21 09:27 Rocephin/Ns 1 Gm/50 Ml IV 100 mls/hr Q24H AZIZA Administration Protocol Insulin Human Regular 100 100 mls @ 1 mls/hr 04/24/21 12:00 units/ Sodium Chloride IV TITR AZIZA Protocol 1 UNITS/HR Insulin Human Isoph/Insulin Regular 25 unit 04/24/21 17:00 Insulin Nph/Regular 70/30 Inj SUB-Q BIDDIAB AZIZA Insulin Human Regular 0 units 04/23/21 06:00 04/24/21 06:17 Insulin Regular, Human 100 Units/1 Ml SUB-Q 8 units Q6H AZIZA Administration Protocol Insulin Human Regular 5 units 04/24/21 14:00 Insulin Regular, Human 100 Units/1 Ml SUB-Q TID AZIZA Metoclopramide HCl 5 mg 04/20/21 21:31 Metoclopramide 10 Mg/2 Ml Inj IV Q6H PRN Nausea And Vomiting Morphine Sulfate 2 mg 04/20/21 21:31 Morphine 2 Mg/1 Ml Inj IV Q4H PRN Pain, Moderate (4-6) Ondansetron HCl 4 mg 04/20/21 21:31 Ondansetron 4 Mg/2 Ml Inj IV Q8H PRN Nausea And Vomiting Simple Syrup 15 ml 04/22/21 16:30 Simple Syrup 15 Ml FEEDTUBE PRN PRN Hypoglycemia Simple Syrup 30 ml 04/22/21 16:30 Simple Syrup 15 Ml FEEDTUBE PRN PRN Hypoglycemia Sodium Bicarbonate 325 mg 04/22/21 16:30 Sodium Bicarbonate 325 Mg Tab FEEDTUBE PRN PRN For Clogged Feeding Tube Sodium Chloride 10 ml 04/20/21 22:00 04/24/21 09:28 Sodium Chloride 0.9% 10 Ml Flush Syringe IV 10 ml BID AZIZA Administration Sodium Chloride 10 ml 04/20/21 21:31 Sodium Chloride 0.9% 10 Ml Flush Syringe IV PRN PRN LINE FLUSH Nutrition/Malnutrition Assess - Dietary Evaluation Nutrition/Malnutrition Findings: Nutrition Notes Start: 04/21/21 12:15 Freq: Status: Active Protocol: Document 04/22/21 15:29 JOSE (Rec: 04/22/21 15:49 JOSE [id number]) Nutrition Notes Initial or Follow up Brief Note Current Diet TF-Nepro w/CARBSTEADY @ 27 ml/ hr (since D 04/22). Weight change and time frame No body weight change reported . Subjective/Other Information RD consult for write/manage TF . TF-Nepro Ordered. Percent of energy/protein needs met: Prescribed Nepro w/CARBSTEADY @ 27 ml/hr provides for energy /protein needs (1,146 Kcal/52 g) during LOS, 100% Kcal; 100% AA. #1 Nutrition Diagnosis Inadequate oral intake Etiology Acute Metabolic Encephalopathy , Pt is unresponsive. As Evidenced by Signs and Symptoms MD request for write/manage TF . Nutrition Intervention Change Diet Order: d/c. Nutrition Support: Start Nepro w/CARBSTEADY @ 27 ml/hr. Flush: 110 ml water Q 4 hr. Kcal 1,146 Protein (gm) 52 Carbohydrates (gm) 103 Fat (gm) 61 Fluid (mL) 463 Fiber (gm) 8 % RDI: 100% Kcal; 100% AA. Goal #1 Provide at least 75% of energy /protein needs through Enteral Feeding during LOS. Follow-Up By: 04/25/21 Additional Comments Continue monitoring TF tolerance and BM.
[2021-04-24] MEDS: INSULIN REGULAR, HUMAN 100 UNITS in SODIUM CHLORIDE 0.9% 99 ML IV SCH ×2 (12:23→20:55)
[2021-04-24] MEDS ORDERED: INSULIN REGULAR, HUMAN 100 UNITS/1 ML SUB-Q SCH (14:00)
[2021-04-24 19:09] LABS: % Iron Saturation 21.75 %
--- NOTE | 2021-04-24 20:53 | Progress Note ---
Assessment and Plan Imp: 1. Hyperosmolar non-ketotic state with volume depletion and hypernatremia 2. Metabolic enceph. 3. SYED 4. Acute respiratory failure, hypoxia 5. Thrombocytopenia Rec: 1. Cont. Insulin and hypotonic IVFs 2. Avoid any sedating meds 3. Aspiration precautions/elevated HOB 4. TFs; NPO otherwise until mentation improves 5. Agree w/ empiric Rocephin; f/u blood cultures and monitor temp/WBCs 6. Monitor platelets; SCDs 7. NSGY note reviewed -> CT head findings believed to be hydrocephalus ex vacuo 8. Echo 9. LUE doppler to r/o DVT 10. "Stridor" is primarily due to patient moaning with every breath; monitoring closely but intubation not needed presently 11. Prognosis guarded; CCT 31 minutes; no family present Subjective Date of service: 04/24/21 Principal diagnosis: Acute respiratory failure Interval history: LUE edema noted. On VM 50% FiO2. Moans but is otherwise poorly responsive. Active Medications Acetaminophen (Acetaminophen 325 Mg Tab) 650 mg PO Q4H PRN PRN Reason: Pain MILD(1-3)/Fever >100.5/TURCIOS Albuterol (Albuterol 2.5 Mg/3 Ml Nebu) 2.5 mg IH Q4HRT PRN PRN Reason: Shortness Of Breath Last Admin: 04/23/21 15:18 Dose: 2.5 mg Documented by: Lipase/Protease/Amylase (Lipase 10,500/Protease 25,000/Amylase 43,750 (Units) Dr Vasquez) 1 each FEEDTUBE PRN PRN PRN Reason: For Clogged Feeding Tube Dextrose (Dextrose 50% In Water (25gm) 50 Ml Syringe) 50 ml IV Q30MIN PRN; Protocol PRN Reason: Hypoglycemia Famotidine (Famotidine 20 Mg/2 Ml Inj) 20 mg IV QDAY AZIZA Last Admin: 04/24/21 09:28 Dose: 20 mg Documented by: Dextrose (D5w) 1,000 mls @ 125 mls/hr IV DIRECT AZIZA Last Admin: 04/24/21 16:35 Dose: 125 mls/hr Documented by: Ceftriaxone Sodium (Rocephin/Ns 1 Gm/50 Ml) 1 gm in 50 mls @ 100 mls/hr IV Q24H AZIZA; Protocol Last Admin: 04/24/21 09:27 Dose: 100 mls/hr Documented by: Insulin Human Regular 100 (units/ Sodium Chloride) 100 mls @ 1 mls/hr IV TITR AZIZA; Protocol Last Titration: 04/24/21 19:59 Dose: 12 units/hr, 12 mls/hr Documented by: Metoclopramide HCl (Metoclopramide 10 Mg/2 Ml Inj) 5 mg IV Q6H PRN PRN Reason: Nausea And Vomiting Morphine Sulfate (Morphine 2 Mg/1 Ml Inj) 2 mg IV Q4H PRN PRN Reason: Pain, Moderate (4-6) Ondansetron HCl (Ondansetron 4 Mg/2 Ml Inj) 4 mg IV Q8H PRN PRN Reason: Nausea And Vomiting Simple Syrup (Simple Syrup 15 Ml) 15 ml FEEDTUBE PRN PRN PRN Reason: Hypoglycemia Simple Syrup (Simple Syrup 15 Ml) 30 ml FEEDTUBE PRN PRN PRN Reason: Hypoglycemia Sodium Bicarbonate (Sodium Bicarbonate 325 Mg Tab) 325 mg FEEDTUBE PRN PRN PRN Reason: For Clogged Feeding Tube Sodium Chloride (Sodium Chloride 0.9% 10 Ml Flush Syringe) 10 ml IV BID [facility] Last Admin: 04/24/21 09:28 Dose: 10 ml Documented by: Sodium Chloride (Sodium Chloride 0.9% 10 Ml Flush Syringe) 10 ml IV PRN PRN PRN Reason: LINE FLUSH Objective Vital Signs - 12hr 04/24/21 04/24/21 04/24/21 09:00 09:09 09:15 Temperature Pulse Rate 93 H 92 H Pulse Rate [ Right Radial] Respiratory 26 H 25 H Rate Blood Pressure 124/60 124/60 O2 Sat by Pulse 95 94 94 Oximetry 04/24/21 04/24/21 04/24/21 09:30 09:45 10:00 Temperature Pulse Rate 94 H 93 H 98 H Pulse Rate [ Right Radial] Respiratory 25 H 25 H 32 H Rate Blood Pressure 120/70 120/70 122/75 O2 Sat by Pulse 91 95 94 Oximetry 04/24/21 04/24/21 04/24/21 10:15 10:30 10:45 Temperature Pulse Rate 101 H 99 H 85 Pulse Rate [ Right Radial] Respiratory 37 H 30 H 26 H Rate Blood Pressure 122/75 115/73 115/73 O2 Sat by Pulse 94 92 93 Oximetry 04/24/21 04/24/21 04/24/21 11:00 11:15 11:30 Temperature Pulse Rate 92 H 97 H 92 H Pulse Rate [ Right Radial] Respiratory 28 H 29 H 27 H Rate Blood Pressure 139/70 139/70 145/70 O2 Sat by Pulse 94 95 95 Oximetry 04/24/21 04/24/21 04/24/21 11:45 12:00 12:15 Temperature 97.3 F L Pulse Rate 100 H 95 H 87 Pulse Rate [ 95 H Right Radial] Respiratory 33 H 24 21 Rate Blood Pressure 145/70 149/64 149/64 O2 Sat by Pulse 96 97 95 Oximetry 04/24/21 04/24/21 04/24/21 12:30 12:45 13:00 Temperature Pulse Rate 93 H 95 H 90 Pulse Rate [ Right Radial] Respiratory 27 H 27 H 25 H Rate Blood Pressure 146/75 146/75 140/67 O2 Sat by Pulse 95 94 93 Oximetry 04/24/21 04/24/21 04/24/21 13:15 13:30 13:45 Temperature Pulse Rate 86 89 96 H Pulse Rate [ Right Radial] Respiratory 22 24 34 H Rate Blood Pressure 140/67 125/65 125/65 O2 Sat by Pulse 95 95 95 Oximetry 04/24/21 04/24/21 04/24/21 14:00 14:15 14:30 Temperature Pulse Rate 90 85 81 Pulse Rate [ Right Radial] Respiratory 25 H 22 24 Rate Blood Pressure 128/63 128/63 117/61 O2 Sat by Pulse 95 95 94 Oximetry 04/24/21 04/24/21 04/24/21 14:45 15:00 15:15 Temperature Pulse Rate 78 76 80 Pulse Rate [ Right Radial] Respiratory 26 H 25 H 22 Rate Blood Pressure 117/61 113/56 113/56 O2 Sat by Pulse 93 93 94 Oximetry 04/24/21 04/24/21 04/24/21 15:30 15:45 16:00 Temperature 97.5 F L Pulse Rate 81 79 77 Pulse Rate [ 77 Right Radial] Respiratory 26 H 27 H 26 H Rate Blood Pressure 122/57 122/57 124/56 O2 Sat by Pulse 93 93 94 Oximetry 04/24/21 04/24/21 04/24/21 16:15 16:31 16:45 Temperature Pulse Rate 97 H 99 H 94 H Pulse Rate [ Right Radial] Respiratory 30 H 30 H 27 H Rate Blood Pressure 124/56 158/78 158/78 O2 Sat by Pulse 97 90 92 Oximetry 04/24/21 04/24/21 04/24/21 17:00 17:15 17:30 Temperature Pulse Rate 92 H 92 H 93 H Pulse Rate [ Right Radial] Respiratory 32 H 28 H 29 H Rate Blood Pressure 165/83 165/83 172/86 O2 Sat by Pulse 91 92 92 Oximetry 04/24/21 04/24/21 04/24/21 17:45 18:00 18:15 Temperature Pulse Rate 97 H 85 88 Pulse Rate [ Right Radial] Respiratory 40 H 23 30 H Rate Blood Pressure 172/86 151/67 151/67 O2 Sat by Pulse 92 93 92 Oximetry 04/24/21 04/24/21 04/24/21 18:30 18:45 19:00 Temperature Pulse Rate 90 89 89 Pulse Rate [ Right Radial] Respiratory 28 H 28 H 36 H Rate Blood Pressure 162/83 162/83 164/77 O2 Sat by Pulse 92 92 90 Oximetry 04/24/21 04/24/21 19:49 19:55 Temperature 96.7 F L Pulse Rate Pulse Rate [ Right Radial] Respiratory Rate Blood Pressure O2 Sat by Pulse 93 Oximetry Constitutional: other (critically ill, somnolent) Eyes: non-icteric ENT: oropharynx dry Effort: other (tachypneic but not labored) Ascultation: Bilateral: clear Cardiovascular: regular rate and rhythm Gastrointestinal: normoactive bowel sounds, soft, non-tender, non-distended Integumentary: normal Extremities: no cyanosis, no edema, pink and warm Neurologic: unable to assess Psychiatric: other (unable to assess) CBC and BMP: 04/24/21 06:00 04/24/21 08:15 ABG, PT/INR, D-dimer: ABG ABG pH 7.486 pH Units (7.350-7.450) H 04/21/21 15:47 ABG pCO2 31.6 mm Hg 04/21/21 15:47 ABG pO2 168.1 mm Hg (80.0-90.0) H 04/21/21 15:47 ABG O2 Saturation 99.1 % (95.0-99.0) H 04/21/21 15:47 Abnormal lab findings: Abnormal Labs 04/20/21 04/20/21 04/20/21 17:10 17:10 17:10 WBC 17.4 H RBC 5.19 H Hct 46.8 H MCH 27 L RDW 17.2 H Plt Count Seg Neuts % (Manual) 98.0 H Lymphocytes % (Manual) 2.0 L Nucleated RBC % 1.0 H Seg Neutrophils # Man 17.1 H Lymphocytes # (Manual) 0.3 L ABG pH ABG pO2 ABG O2 Saturation ABG Base Excess ABG Hemoglobin Oxyhemoglobin Sodium 173 H* Potassium Chloride 132.9 H Carbon Dioxide 17 L BUN 120 H Creatinine 4.2 H Glucose 762 H* POC Glucose Hemoglobin A1c Lactic Acid Calcium Magnesium 3.80 H Transferrin AST 72 H ALT 63 H Alkaline Phosphatase 148 H Total Creatine Kinase 3697 H CK-MB (CK-2) 36.0 H Total Protein Albumin 2.2 L TSH Urine Creatinine Urine Total Protein 04/20/21 04/20/21 04/20/21 17:10 17:10 18:55 WBC RBC Hct MCH RDW Plt Count Seg Neuts % (Manual) Lymphocytes % (Manual) Nucleated RBC % Seg Neutrophils # Man Lymphocytes # (Manual) ABG pH ABG pO2 ABG O2 Saturation ABG Base Excess ABG Hemoglobin Oxyhemoglobin Sodium Potassium Chloride Carbon Dioxide BUN Creatinine Glucose POC Glucose 574 H Hemoglobin A1c Lactic Acid 2.60 H* Calcium Magnesium Transferrin AST ALT Alkaline Phosphatase Total Creatine Kinase CK-MB (CK-2) Total Protein Albumin TSH 6.040 H Urine Creatinine Urine Total Protein 04/20/21 04/20/21 04/21/21 22:58 22:58 00:14 WBC RBC Hct MCH RDW Plt Count Seg Neuts % (Manual) Lymphocytes % (Manual) Nucleated RBC % Seg Neutrophils # Man Lymphocytes # (Manual) ABG pH ABG pO2 ABG O2 Saturation ABG Base Excess ABG Hemoglobin Oxyhemoglobin Sodium 172 H* Potassium 3.2 L Chloride 134.2 H Carbon Dioxide 17 L BUN 112 H Creatinine 3.8 H Glucose 803 H* POC Glucose > 600 H Hemoglobin A1c Lactic Acid Calcium 8.3 L Magnesium 3.50 H Transferrin AST ALT Alkaline Phosphatase Total Creatine Kinase CK-MB (CK-2) Total Protein Albumin TSH Urine Creatinine Urine Total Protein 04/21/21 04/21/21 04/21/21 00:22 02:01 03:11 WBC RBC Hct MCH RDW Plt Count Seg Neuts % (Manual) Lymphocytes % (Manual) Nucleated RBC % Seg Neutrophils # Man Lymphocytes # (Manual) ABG pH ABG pO2 ABG O2 Saturation ABG Base Excess ABG Hemoglobin Oxyhemoglobin Sodium 176 H* 175 H* Potassium 2.9 L* 3.0 L Chloride 139.9 H 136.2 H Carbon Dioxide 17 L 19 L BUN 113 H 112 H Creatinine 3.9 H 3.6 H Glucose 729 H* 582 H* POC Glucose 404 H Hemoglobin A1c Lactic Acid Calcium Magnesium Transferrin AST ALT Alkaline Phosphatase Total Creatine Kinase CK-MB (CK-2) Total Protein Albumin TSH Urine Creatinine Urine Total Protein 04/21/21 04/21/21 04/21/21 03:20 03:41 03:41 WBC 14.1 H RBC Hct MCH 27 L RDW 16.8 H Plt Count 114 L Seg Neuts % (Manual) 97.0 H Lymphocytes % (Manual) 3.0 L Nucleated RBC % 1.0 H Seg Neutrophils # Man 13.7 H Lymphocytes # (Manual) 0.4 L ABG pH ABG pO2 52.3 L ABG O2 Saturation 84.5 L ABG Base Excess -2.9 L ABG Hemoglobin Oxyhemoglobin 82.9 L Sodium 179 H* Potassium 2.9 L* Chloride 138.2 H Carbon Dioxide 20 L BUN 111 H Creatinine 3.7 H Glucose 465 H POC Glucose Hemoglobin A1c Lactic Acid Calcium Magnesium Transferrin AST 73 H ALT 61 H Alkaline Phosphatase 144 H Total Creatine Kinase CK-MB (CK-2) Total Protein Albumin 2.5 L TSH Urine Creatinine Urine Total Protein 04/21/21 04/21/21 04/21/21 04:24 05:45 06:47 WBC RBC Hct MCH RDW Plt Count Seg Neuts % (Manual) Lymphocytes % (Manual) Nucleated RBC % Seg Neutrophils # Man Lymphocytes # (Manual) ABG pH ABG pO2 ABG O2 Saturation ABG Base Excess ABG Hemoglobin Oxyhemoglobin Sodium Potassium Chloride Carbon Dioxide BUN Creatinine Glucose POC Glucose 353 H 280 H 260 H Hemoglobin A1c Lactic Acid Calcium Magnesium Transferrin AST ALT Alkaline Phosphatase Total Creatine Kinase CK-MB (CK-2) Total Protein Albumin TSH Urine Creatinine Urine Total Protein 04/21/21 04/21/21 04/21/21 08:01 11:11 12:51 WBC RBC Hct MCH RDW Plt Count Seg Neuts % (Manual) Lymphocytes % (Manual) Nucleated RBC % Seg Neutrophils # Man Lymphocytes # (Manual) ABG pH ABG pO2 ABG O2 Saturation ABG Base Excess ABG Hemoglobin Oxyhemoglobin Sodium Potassium Chloride Carbon Dioxide BUN Creatinine Glucose POC Glucose 68 L 146 H Hemoglobin A1c Lactic Acid Calcium Magnesium Transferrin AST ALT Alkaline Phosphatase Total Creatine Kinase CK-MB (CK-2) Total Protein Albumin TSH Urine Creatinine 44.3 H Urine Total Protein 12 H 04/21/21 04/21/21 04/21/21 14:40 15:47 16:25 WBC RBC Hct MCH RDW Plt Count Seg Neuts % (Manual) Lymphocytes % (Manual) Nucleated RBC % Seg Neutrophils # Man Lymphocytes # (Manual) ABG pH 7.486 H ABG pO2 168.1 H ABG O2 Saturation 99.1 H ABG Base Excess ABG Hemoglobin 8.9 L Oxyhemoglobin Sodium Potassium Chloride Carbon Dioxide BUN Creatinine Glucose POC Glucose 186 H 172 H Hemoglobin A1c Lactic Acid Calcium Magnesium Transferrin AST ALT Alkaline Phosphatase Total Creatine Kinase CK-MB (CK-2) Total Protein Albumin TSH Urine Creatinine Urine Total Protein 04/21/21 04/21/21 04/21/21 17:57 18:49 19:10 WBC RBC Hct MCH RDW Plt Count Seg Neuts % (Manual) Lymphocytes % (Manual) Nucleated RBC % Seg Neutrophils # Man Lymphocytes # (Manual) ABG pH ABG pO2 ABG O2 Saturation ABG Base Excess ABG Hemoglobin Oxyhemoglobin Sodium 174 H* Potassium 7.2 H* D Chloride 138.2 H Carbon Dioxide 21 L BUN 99 H Creatinine 4.0 H Glucose 157 H POC Glucose 143 H 126 H Hemoglobin A1c Lactic Acid Calcium Magnesium Transferrin AST 134 H ALT 71 H Alkaline Phosphatase 135 H Total Creatine Kinase 3504 H CK-MB (CK-2) Total Protein Albumin 2.2 L TSH Urine Creatinine Urine Total Protein 04/21/21 04/21/21 04/21/21 20:26 20:53 21:52 WBC RBC Hct MCH RDW Plt Count Seg Neuts % (Manual) Lymphocytes % (Manual) Nucleated RBC % Seg Neutrophils # Man Lymphocytes # (Manual) ABG pH ABG pO2 ABG O2 Saturation ABG Base Excess ABG Hemoglobin Oxyhemoglobin Sodium Potassium Chloride Carbon Dioxide BUN Creatinine Glucose POC Glucose 190 H 116 H 135 H Hemoglobin A1c Lactic Acid Calcium Magnesium Transferrin AST ALT Alkaline Phosphatase Total Creatine Kinase CK-MB (CK-2) Total Protein Albumin TSH Urine Creatinine Urine Total Protein 04/21/21 04/21/21 04/22/21 22:55 23:00 00:01 WBC RBC Hct MCH RDW Plt Count Seg Neuts % (Manual) Lymphocytes % (Manual) Nucleated RBC % Seg Neutrophils # Man Lymphocytes # (Manual) ABG pH ABG pO2 ABG O2 Saturation ABG Base Excess ABG Hemoglobin Oxyhemoglobin Sodium 176 H* Potassium Chloride 140.0 H Carbon Dioxide 20 L BUN 98 H Creatinine 3.9 H Glucose 206 H POC Glucose 158 H 182 H Hemoglobin A1c Lactic Acid Calcium Magnesium Transferrin AST ALT Alkaline Phosphatase Total Creatine Kinase 3240 H CK-MB (CK-2) Total Protein Albumin TSH Urine Creatinine Urine Total Protein 04/22/21 04/22/21 04/22/21 00:39 00:58 01:04 WBC RBC Hct MCH RDW Plt Count Seg Neuts % (Manual) Lymphocytes % (Manual) Nucleated RBC % Seg Neutrophils # Man Lymphocytes # (Manual) ABG pH ABG pO2 ABG O2 Saturation ABG Base Excess ABG Hemoglobin Oxyhemoglobin Sodium 171 H* Potassium Chloride Carbon Dioxide BUN Creatinine Glucose POC Glucose 176 H 143 H Hemoglobin A1c Lactic Acid Calcium Magnesium Transferrin AST ALT Alkaline Phosphatase Total Creatine Kinase CK-MB (CK-2) Total Protein Albumin TSH Urine Creatinine Urine Total Protein 04/22/21 04/22/21 04/22/21 04:52 06:07 06:09 WBC 11.2 H RBC Hct 44.3 H MCH 27 L RDW 17.1 H Plt Count 86 L Seg Neuts % (Manual) 86.0 H Lymphocytes % (Manual) 13.0 L Nucleated RBC % Seg Neutrophils # Man 9.6 H Lymphocytes # (Manual) ABG pH ABG pO2 ABG O2 Saturation ABG Base Excess ABG Hemoglobin Oxyhemoglobin Sodium Potassium Chloride Carbon Dioxide BUN Creatinine Glucose POC Glucose 206 H 163 H Hemoglobin A1c Lactic Acid Calcium Magnesium Transferrin AST ALT Alkaline Phosphatase Total Creatine Kinase CK-MB (CK-2) Total Protein Albumin TSH Urine Creatinine Urine Total Protein 04/22/21 04/22/21 04/22/21 07:18 08:59 08:59 WBC RBC Hct MCH RDW Plt Count Seg Neuts % (Manual) Lymphocytes % (Manual) Nucleated RBC % Seg Neutrophils # Man Lymphocytes # (Manual) ABG pH ABG pO2 ABG O2 Saturation ABG Base Excess ABG Hemoglobin Oxyhemoglobin Sodium 169 H* Potassium 3.5 L Chloride 134.5 H Carbon Dioxide 20 L BUN 95 H Creatinine 3.6 H Glucose 151 H POC Glucose 158 H Hemoglobin A1c Lactic Acid Calcium Magnesium Transferrin AST 121 H ALT 75 H Alkaline Phosphatase 137 H Total Creatine Kinase 3105 H CK-MB (CK-2) Total Protein 6.0 L Albumin 2.1 L TSH Urine Creatinine Urine Total Protein 04/22/21 04/22/21 04/22/21 09:44 10:24 12:20 WBC RBC Hct MCH RDW Plt Count Seg Neuts % (Manual) Lymphocytes % (Manual) Nucleated RBC % Seg Neutrophils # Man Lymphocytes # (Manual) ABG pH ABG pO2 ABG O2 Saturation ABG Base Excess ABG Hemoglobin Oxyhemoglobin Sodium Potassium Chloride Carbon Dioxide BUN Creatinine Glucose POC Glucose 107 H 131 H Hemoglobin A1c Lactic Acid Calcium Magnesium 2.80 H Transferrin AST ALT Alkaline Phosphatase Total Creatine Kinase CK-MB (CK-2) Total Protein Albumin TSH Urine Creatinine Urine Total Protein 04/22/21 04/22/21 04/22/21 13:19 14:16 15:22 WBC RBC Hct MCH RDW Plt Count Seg Neuts % (Manual) Lymphocytes % (Manual) Nucleated RBC % Seg Neutrophils # Man Lymphocytes # (Manual) ABG pH ABG pO2 ABG O2 Saturation ABG Base Excess ABG Hemoglobin Oxyhemoglobin Sodium Potassium Chloride Carbon Dioxide BUN Creatinine Glucose POC Glucose 147 H 154 H 136 H Hemoglobin A1c Lactic Acid Calcium Magnesium Transferrin AST ALT Alkaline Phosphatase Total Creatine Kinase CK-MB (CK-2) Total Protein Albumin TSH Urine Creatinine Urine Total Protein 04/22/21 04/22/21 04/22/21 15:55 15:55 16:22 WBC RBC Hct MCH RDW Plt Count Seg Neuts % (Manual) Lymphocytes % (Manual) Nucleated RBC % Seg Neutrophils # Man Lymphocytes # (Manual) ABG pH ABG pO2 ABG O2 Saturation ABG Base Excess ABG Hemoglobin Oxyhemoglobin Sodium 169 H* Potassium Chloride 133.5 H Carbon Dioxide 19 L BUN 94 H Creatinine 3.8 H Glucose 150 H POC Glucose 140 H Hemoglobin A1c 17.1 H Lactic Acid Calcium Magnesium Transferrin AST ALT Alkaline Phosphatase Total Creatine Kinase CK-MB (CK-2) Total Protein Albumin TSH Urine Creatinine Urine Total Protein 04/22/21 04/22/21 04/22/21 18:11 18:26 23:19 WBC RBC Hct MCH RDW Plt Count Seg Neuts % (Manual) Lymphocytes % (Manual) Nucleated RBC % Seg Neutrophils # Man Lymphocytes # (Manual) ABG pH ABG pO2 ABG O2 Saturation ABG Base Excess ABG Hemoglobin Oxyhemoglobin Sodium Potassium Chloride Carbon Dioxide BUN Creatinine Glucose POC Glucose 146 H 188 H Hemoglobin A1c Lactic Acid Calcium Magnesium Transferrin AST ALT Alkaline Phosphatase Total Creatine Kinase 2497 H CK-MB (CK-2) Total Protein Albumin TSH Urine Creatinine Urine Total Protein 04/23/21 04/23/21 04/23/21 00:27 05:23 07:50 WBC RBC Hct MCH RDW Plt Count Seg Neuts % (Manual) Lymphocytes % (Manual) Nucleated RBC % Seg Neutrophils # Man Lymphocytes # (Manual) ABG pH ABG pO2 ABG O2 Saturation ABG Base Excess ABG Hemoglobin Oxyhemoglobin Sodium 162 H* Potassium Chloride Carbon Dioxide BUN Creatinine Glucose POC Glucose 212 H 239 H Hemoglobin A1c Lactic Acid Calcium Magnesium Transferrin AST ALT Alkaline Phosphatase Total Creatine Kinase CK-MB (CK-2) Total Protein Albumin TSH Urine Creatinine Urine Total Protein 04/23/21 04/23/21 04/23/21 08:13 08:13 08:13 WBC 11.9 H RBC Hct MCH 26 L RDW 16.5 H Plt Count 72 L Seg Neuts % (Manual) 80.0 H Lymphocytes % (Manual) 5.0 L Nucleated RBC % Seg Neutrophils # Man 9.5 H Lymphocytes # (Manual) 0.6 L ABG pH ABG pO2 ABG O2 Saturation ABG Base Excess ABG Hemoglobin Oxyhemoglobin Sodium 164 H* Potassium Chloride 128.0 H Carbon Dioxide 21 L BUN 93 H Creatinine 3.8 H Glucose 293 H POC Glucose Hemoglobin A1c Lactic Acid Calcium Magnesium Transferrin AST 99 H ALT 70 H Alkaline Phosphatase 147 H Total Creatine Kinase 1803 H CK-MB (CK-2) Total Protein 6.1 L Albumin 2.0 L TSH Urine Creatinine Urine Total Protein 04/23/21 04/23/21 04/23/21 12:06 17:35 18:17 WBC RBC Hct MCH RDW Plt Count Seg Neuts % (Manual) Lymphocytes % (Manual) Nucleated RBC % Seg Neutrophils # Man Lymphocytes # (Manual) ABG pH ABG pO2 ABG O2 Saturation ABG Base Excess ABG Hemoglobin Oxyhemoglobin Sodium 160 H Potassium Chloride Carbon Dioxide BUN Creatinine Glucose POC Glucose 311 H 370 H Hemoglobin A1c Lactic Acid Calcium Magnesium Transferrin AST ALT Alkaline Phosphatase Total Creatine Kinase CK-MB (CK-2) Total Protein Albumin TSH Urine Creatinine Urine Total Protein 04/24/21 04/24/21 04/24/21 02:13 06:00 06:00 WBC RBC Hct MCH 27 L RDW 17.0 H Plt Count 58 L Seg Neuts % (Manual) Lymphocytes % (Manual) 2.0 L Nucleated RBC % Seg Neutrophils # Man 8.9 H Lymphocytes # (Manual) 0.2 L ABG pH ABG pO2 ABG O2 Saturation ABG Base Excess ABG Hemoglobin Oxyhemoglobin Sodium 160 H Potassium Chloride Carbon Dioxide BUN Creatinine Glucose POC Glucose Hemoglobin A1c Lactic Acid Calcium Magnesium 2.90 H Transferrin AST ALT Alkaline Phosphatase Total Creatine Kinase CK-MB (CK-2) Total Protein Albumin TSH Urine Creatinine Urine Total Protein 04/24/21 04/24/21 04/24/21 07:46 08:15 11:34 WBC RBC Hct MCH RDW Plt Count Seg Neuts % (Manual) Lymphocytes % (Manual) Nucleated RBC % Seg Neutrophils # Man Lymphocytes # (Manual) ABG pH ABG pO2 ABG O2 Saturation ABG Base Excess ABG Hemoglobin Oxyhemoglobin Sodium 159 H Potassium Chloride 125.6 H Carbon Dioxide 19 L BUN 94 H Creatinine 3.7 H Glucose 514 H* POC Glucose 395 H 422 H Hemoglobin A1c Lactic Acid Calcium Magnesium Transferrin AST ALT 61 H Alkaline Phosphatase 155 H Total Creatine Kinase CK-MB (CK-2) Total Protein 6.1 L Albumin 1.5 L TSH Urine Creatinine Urine Total Protein 04/24/21 04/24/21 04/24/21 13:11 14:01 15:03 WBC RBC Hct MCH RDW Plt Count Seg Neuts % (Manual) Lymphocytes % (Manual) Nucleated RBC % Seg Neutrophils # Man Lymphocytes # (Manual) ABG pH ABG pO2 ABG O2 Saturation ABG Base Excess ABG Hemoglobin Oxyhemoglobin Sodium Potassium Chloride Carbon Dioxide BUN Creatinine Glucose POC Glucose 384 H 423 H 418 H Hemoglobin A1c Lactic Acid Calcium Magnesium Transferrin AST ALT Alkaline Phosphatase Total Creatine Kinase CK-MB (CK-2) Total Protein Albumin TSH Urine Creatinine Urine Total Protein 04/24/21 04/24/21 04/24/21 17:29 18:28 19:41 WBC RBC Hct MCH RDW Plt Count Seg Neuts % (Manual) Lymphocytes % (Manual) Nucleated RBC % Seg Neutrophils # Man Lymphocytes # (Manual) ABG pH ABG pO2 ABG O2 Saturation ABG Base Excess ABG Hemoglobin Oxyhemoglobin Sodium Potassium Chloride Carbon Dioxide BUN Creatinine Glucose POC Glucose 335 H 321 H Hemoglobin A1c Lactic Acid Calcium Magnesium Transferrin 112 L AST ALT Alkaline Phosphatase Total Creatine Kinase CK-MB (CK-2) Total Protein Albumin TSH Urine Creatinine Urine Total Protein Chest x-ray: report reviewed, image reviewed
[2021-04-24] MEDS: MORPHINE 2 MG/1 ML INJ IV PRN (23:20)
[2021-04-25] MEDS: DEXTROSE 5% IN WATER 1,000 ML IV SCH ×2 (00:46→08:50)
[2021-04-25 06:03] LABS: Hematocrit 33.2 % (30.3-42.9); Hemoglobin 10.3 gm/dl (10.1-14.3); Mean Corpuscular HGB Conc 31 % (30-34); Mean Corpuscular Volume 86 fl (79-97); Red Blood Count 3.85 M/mm3 (3.65-5.03)
[2021-04-25 06:20] LABS: Platelet Count 64 K/mm3 (140-440)
[2021-04-25 08:18] LABS: Band Neutrophils # (Manual) 0.4 K/mm3; Total Cells Counted 100
[2021-04-25 08:19] LABS: Anisocytosis 1+; Burr Cells 1+; Giant Platelets Few; Platelet Estimate Consistent w Auto
[2021-04-25] MEDS: INSULIN REGULAR, HUMAN 100 UNITS in SODIUM CHLORIDE 0.9% 99 ML IV SCH (08:40)
[2021-04-25 08:41] LABS: Albumin 1.4 g/dL (3.9-5); Calcium 8.6 mg/dL (8.4-10.2)
[2021-04-25] MEDS: cefTRIAXone/NS 1 GM/50 ML 1 GM/50 ML BAG IV SCH (09:24)
[2021-04-25] MEDS: FAMOTIDINE 20 MG TAB FEEDTUBE SCH (09:24)
--- NOTE | 2021-04-25 10:12 | Progress Note ---
Assessment and Plan 80 y/o female with altered mental state, severe electrolyte imbalance with presumptive acute renal failure and hypothermia. 04/25/21: Continue to follow renal recs. Will reach out to POA either today or tomorrow for further updates. Follow up renal recs. Monitor electrolytes and renal function. Guarded prognosis. 1. Neuro-reached out to neuro surgery, placed consult in regards to CT findings 2. Renal-appreciate help and recs, will follow IV hydration recommendations 3. Blood cultures. Urine was negative 4. Jorge Hugger for temp Guarded prognosis CCT 31 minutes. Subjective Date of service: 04/25/21 Principal diagnosis: Acute respiratory failure Interval history: mental status is unchanged compared to last time I saw patient. Still encephalopathic. Neurosurgery left note. Renal continues to follow. Na better but renal function isnt. No worse but not improving. Objective Vital Signs - 12hr 04/24/21 04/24/21 04/24/21 22:00 22:15 22:30 Temperature Pulse Rate 96 H 96 H 97 H Pulse Rate [ Right Radial] Respiratory 31 H 24 24 Rate Blood Pressure 151/74 151/74 169/70 O2 Sat by Pulse 93 92 93 Oximetry 04/24/21 04/24/21 04/24/21 22:45 23:00 23:15 Temperature Pulse Rate 97 H 103 H 103 H Pulse Rate [ Right Radial] Respiratory 29 H 30 H 26 H Rate Blood Pressure 169/70 177/79 169/70 O2 Sat by Pulse 93 94 94 Oximetry 04/24/21 04/24/21 04/25/21 23:30 23:45 00:00 Temperature 97.7 F Pulse Rate 100 H 101 H 99 H Pulse Rate [ 99 H Right Radial] Respiratory 29 H 40 H 39 H Rate Blood Pressure 161/71 161/71 140/75 O2 Sat by Pulse 93 94 94 Oximetry 04/25/21 04/25/21 04/25/21 00:15 00:30 00:45 Temperature Pulse Rate 97 H 103 H 103 H Pulse Rate [ Right Radial] Respiratory 25 H 46 H 26 H Rate Blood Pressure 140/75 163/80 163/80 O2 Sat by Pulse 93 94 93 Oximetry 04/25/21 04/25/21 04/25/21 01:01 01:15 01:30 Temperature Pulse Rate 101 H 96 H 103 H Pulse Rate [ Right Radial] Respiratory 27 H 24 40 H Rate Blood Pressure 139/61 139/61 117/69 O2 Sat by Pulse 93 92 94 Oximetry 04/25/21 04/25/21 04/25/21 01:45 02:00 02:15 Temperature Pulse Rate 105 H 99 H 103 H Pulse Rate [ Right Radial] Respiratory 29 H 29 H 26 H Rate Blood Pressure 117/69 118/60 118/60 O2 Sat by Pulse 94 94 95 Oximetry 04/25/21 04/25/21 04/25/21 02:30 02:45 03:00 Temperature Pulse Rate 106 H 101 H 102 H Pulse Rate [ Right Radial] Respiratory 27 H 27 H 26 H Rate Blood Pressure 123/62 123/62 124/64 O2 Sat by Pulse 96 95 96 Oximetry 04/25/21 04/25/21 04/25/21 03:15 03:21 03:30 Temperature 100.2 F H Pulse Rate 102 H 109 H Pulse Rate [ Right Radial] Respiratory 26 H 41 H Rate Blood Pressure 124/64 151/75 O2 Sat by Pulse 97 96 Oximetry 04/25/21 04/25/21 04/25/21 03:45 04:00 04:15 Temperature Pulse Rate 107 H 110 H 109 H Pulse Rate [ 108 H Right Radial] Respiratory 25 H 26 H 27 H Rate Blood Pressure 151/75 145/65 145/65 O2 Sat by Pulse 96 96 96 Oximetry 04/25/21 04/25/21 04/25/21 04:30 04:45 05:00 Temperature Pulse Rate 102 H 105 H 99 H Pulse Rate [ Right Radial] Respiratory 24 25 H 24 Rate Blood Pressure 119/61 119/61 102/60 O2 Sat by Pulse 95 95 94 Oximetry 04/25/21 04/25/21 04/25/21 05:15 05:30 05:45 Temperature Pulse Rate 101 H 108 H 102 H Pulse Rate [ Right Radial] Respiratory 25 H 31 H 24 Rate Blood Pressure 102/60 106/70 106/70 O2 Sat by Pulse 96 95 95 Oximetry 04/25/21 04/25/21 04/25/21 06:00 06:15 06:30 Temperature Pulse Rate 96 H 103 H 100 H Pulse Rate [ Right Radial] Respiratory 24 31 H 22 Rate Blood Pressure 118/60 118/60 109/60 O2 Sat by Pulse 93 96 96 Oximetry 04/25/21 04/25/21 04/25/21 06:45 07:00 07:15 Temperature Pulse Rate 101 H 97 H 101 H Pulse Rate [ Right Radial] Respiratory 24 22 23 Rate Blood Pressure 109/60 100/58 100/58 O2 Sat by Pulse 95 96 96 Oximetry 04/25/21 08:00 Temperature 98 F Pulse Rate Pulse Rate [ Right Radial] Respiratory Rate Blood Pressure O2 Sat by Pulse Oximetry Constitutional: other (critically ill, somnolent) Eyes: non-icteric ENT: oropharynx dry Effort: other (tachypneic but not labored) Ascultation: Bilateral: clear Cardiovascular: regular rate and rhythm Gastrointestinal: normoactive bowel sounds, soft, non-tender, non-distended Integumentary: normal Extremities: no cyanosis, no edema, pink and warm Neurologic: unable to assess Psychiatric: other (unable to assess) CBC and BMP: 04/25/21 05:45 04/25/21 08:11 ABG, PT/INR, D-dimer: ABG ABG pH 7.486 pH Units (7.350-7.450) H 04/21/21 15:47 ABG pCO2 31.6 mm Hg 04/21/21 15:47 ABG pO2 168.1 mm Hg (80.0-90.0) H 04/21/21 15:47 ABG O2 Saturation 99.1 % (95.0-99.0) H 04/21/21 15:47 Abnormal lab findings: Abnormal Labs 04/20/21 04/20/21 04/20/21 17:10 17:10 17:10 WBC 17.4 H RBC 5.19 H Hct 46.8 H MCH 27 L RDW 17.2 H Plt Count Seg Neuts % (Manual) 98.0 H Lymphocytes % (Manual) 2.0 L Nucleated RBC % 1.0 H Seg Neutrophils # Man 17.1 H Lymphocytes # (Manual) 0.3 L ABG pH ABG pO2 ABG O2 Saturation ABG Base Excess ABG Hemoglobin Oxyhemoglobin Sodium 173 H* Potassium Chloride 132.9 H Carbon Dioxide 17 L BUN 120 H Creatinine 4.2 H Glucose 762 H* POC Glucose Hemoglobin A1c Lactic Acid Calcium Magnesium 3.80 H Transferrin AST 72 H ALT 63 H Alkaline Phosphatase 148 H Total Creatine Kinase 3697 H CK-MB (CK-2) 36.0 H Total Protein Albumin 2.2 L TSH Urine Creatinine Urine Total Protein 04/20/21 04/20/21 04/20/21 17:10 17:10 18:55 WBC RBC Hct MCH RDW Plt Count Seg Neuts % (Manual) Lymphocytes % (Manual) Nucleated RBC % Seg Neutrophils # Man Lymphocytes # (Manual) ABG pH ABG pO2 ABG O2 Saturation ABG Base Excess ABG Hemoglobin Oxyhemoglobin Sodium Potassium Chloride Carbon Dioxide BUN Creatinine Glucose POC Glucose 574 H Hemoglobin A1c Lactic Acid 2.60 H* Calcium Magnesium Transferrin AST ALT Alkaline Phosphatase Total Creatine Kinase CK-MB (CK-2) Total Protein Albumin TSH 6.040 H Urine Creatinine Urine Total Protein 04/20/21 04/20/21 04/21/21 22:58 22:58 00:14 WBC RBC Hct MCH RDW Plt Count Seg Neuts % (Manual) Lymphocytes % (Manual) Nucleated RBC % Seg Neutrophils # Man Lymphocytes # (Manual) ABG pH ABG pO2 ABG O2 Saturation ABG Base Excess ABG Hemoglobin Oxyhemoglobin Sodium 172 H* Potassium 3.2 L Chloride 134.2 H Carbon Dioxide 17 L BUN 112 H Creatinine 3.8 H Glucose 803 H* POC Glucose > 600 H Hemoglobin A1c Lactic Acid Calcium 8.3 L Magnesium 3.50 H Transferrin AST ALT Alkaline Phosphatase Total Creatine Kinase CK-MB (CK-2) Total Protein Albumin TSH Urine Creatinine Urine Total Protein 04/21/21 04/21/21 04/21/21 00:22 02:01 03:11 WBC RBC Hct MCH RDW Plt Count Seg Neuts % (Manual) Lymphocytes % (Manual) Nucleated RBC % Seg Neutrophils # Man Lymphocytes # (Manual) ABG pH ABG pO2 ABG O2 Saturation ABG Base Excess ABG Hemoglobin Oxyhemoglobin Sodium 176 H* 175 H* Potassium 2.9 L* 3.0 L Chloride 139.9 H 136.2 H Carbon Dioxide 17 L 19 L BUN 113 H 112 H Creatinine 3.9 H 3.6 H Glucose 729 H* 582 H* POC Glucose 404 H Hemoglobin A1c Lactic Acid Calcium Magnesium Transferrin AST ALT Alkaline Phosphatase Total Creatine Kinase CK-MB (CK-2) Total Protein Albumin TSH Urine Creatinine Urine Total Protein 04/21/21 04/21/21 04/21/21 03:20 03:41 03:41 WBC 14.1 H RBC Hct MCH 27 L RDW 16.8 H Plt Count 114 L Seg Neuts % (Manual) 97.0 H Lymphocytes % (Manual) 3.0 L Nucleated RBC % 1.0 H Seg Neutrophils # Man 13.7 H Lymphocytes # (Manual) 0.4 L ABG pH ABG pO2 52.3 L ABG O2 Saturation 84.5 L ABG Base Excess -2.9 L ABG Hemoglobin Oxyhemoglobin 82.9 L Sodium 179 H* Potassium 2.9 L* Chloride 138.2 H Carbon Dioxide 20 L BUN 111 H Creatinine 3.7 H Glucose 465 H POC Glucose Hemoglobin A1c Lactic Acid Calcium Magnesium Transferrin AST 73 H ALT 61 H Alkaline Phosphatase 144 H Total Creatine Kinase CK-MB (CK-2) Total Protein Albumin 2.5 L TSH Urine Creatinine Urine Total Protein 04/21/21 04/21/21 04/21/21 04:24 05:45 06:47 WBC RBC Hct MCH RDW Plt Count Seg Neuts % (Manual) Lymphocytes % (Manual) Nucleated RBC % Seg Neutrophils # Man Lymphocytes # (Manual) ABG pH ABG pO2 ABG O2 Saturation ABG Base Excess ABG Hemoglobin Oxyhemoglobin Sodium Potassium Chloride Carbon Dioxide BUN Creatinine Glucose POC Glucose 353 H 280 H 260 H Hemoglobin A1c Lactic Acid Calcium Magnesium Transferrin AST ALT Alkaline Phosphatase Total Creatine Kinase CK-MB (CK-2) Total Protein Albumin TSH Urine Creatinine Urine Total Protein 04/21/21 04/21/21 04/21/21 08:01 11:11 12:51 WBC RBC Hct MCH RDW Plt Count Seg Neuts % (Manual) Lymphocytes % (Manual) Nucleated RBC % Seg Neutrophils # Man Lymphocytes # (Manual) ABG pH ABG pO2 ABG O2 Saturation ABG Base Excess ABG Hemoglobin Oxyhemoglobin Sodium Potassium Chloride Carbon Dioxide BUN Creatinine Glucose POC Glucose 68 L 146 H Hemoglobin A1c Lactic Acid Calcium Magnesium Transferrin AST ALT Alkaline Phosphatase Total Creatine Kinase CK-MB (CK-2) Total Protein Albumin TSH Urine Creatinine 44.3 H Urine Total Protein 12 H 04/21/21 04/21/21 04/21/21 14:40 15:47 16:25 WBC RBC Hct MCH RDW Plt Count Seg Neuts % (Manual) Lymphocytes % (Manual) Nucleated RBC % Seg Neutrophils # Man Lymphocytes # (Manual) ABG pH 7.486 H ABG pO2 168.1 H ABG O2 Saturation 99.1 H ABG Base Excess ABG Hemoglobin 8.9 L Oxyhemoglobin Sodium Potassium Chloride Carbon Dioxide BUN Creatinine Glucose POC Glucose 186 H 172 H Hemoglobin A1c Lactic Acid Calcium Magnesium Transferrin AST ALT Alkaline Phosphatase Total Creatine Kinase CK-MB (CK-2) Total Protein Albumin TSH Urine Creatinine Urine Total Protein 04/21/21 04/21/21 04/21/21 17:57 18:49 19:10 WBC RBC Hct MCH RDW Plt Count Seg Neuts % (Manual) Lymphocytes % (Manual) Nucleated RBC % Seg Neutrophils # Man Lymphocytes # (Manual) ABG pH ABG pO2 ABG O2 Saturation ABG Base Excess ABG Hemoglobin Oxyhemoglobin Sodium 174 H* Potassium 7.2 H* D Chloride 138.2 H Carbon Dioxide 21 L BUN 99 H Creatinine 4.0 H Glucose 157 H POC Glucose 143 H 126 H Hemoglobin A1c Lactic Acid Calcium Magnesium Transferrin AST 134 H ALT 71 H Alkaline Phosphatase 135 H Total Creatine Kinase 3504 H CK-MB (CK-2) Total Protein Albumin 2.2 L TSH Urine Creatinine Urine Total Protein 04/21/21 04/21/21 04/21/21 20:26 20:53 21:52 WBC RBC Hct MCH RDW Plt Count Seg Neuts % (Manual) Lymphocytes % (Manual) Nucleated RBC % Seg Neutrophils # Man Lymphocytes # (Manual) ABG pH ABG pO2 ABG O2 Saturation ABG Base Excess ABG Hemoglobin Oxyhemoglobin Sodium Potassium Chloride Carbon Dioxide BUN Creatinine Glucose POC Glucose 190 H 116 H 135 H Hemoglobin A1c Lactic Acid Calcium Magnesium Transferrin AST ALT Alkaline Phosphatase Total Creatine Kinase CK-MB (CK-2) Total Protein Albumin TSH Urine Creatinine Urine Total Protein 04/21/21 04/21/21 04/22/21 22:55 23:00 00:01 WBC RBC Hct MCH RDW Plt Count Seg Neuts % (Manual) Lymphocytes % (Manual) Nucleated RBC % Seg Neutrophils # Man Lymphocytes # (Manual) ABG pH ABG pO2 ABG O2 Saturation ABG Base Excess ABG Hemoglobin Oxyhemoglobin Sodium 176 H* Potassium Chloride 140.0 H Carbon Dioxide 20 L BUN 98 H Creatinine 3.9 H Glucose 206 H POC Glucose 158 H 182 H Hemoglobin A1c Lactic Acid Calcium Magnesium Transferrin AST ALT Alkaline Phosphatase Total Creatine Kinase 3240 H CK-MB (CK-2) Total Protein Albumin TSH Urine Creatinine Urine Total Protein 04/22/21 04/22/21 04/22/21 00:39 00:58 01:04 WBC RBC Hct MCH RDW Plt Count Seg Neuts % (Manual) Lymphocytes % (Manual) Nucleated RBC % Seg Neutrophils # Man Lymphocytes # (Manual) ABG pH ABG pO2 ABG O2 Saturation ABG Base Excess ABG Hemoglobin Oxyhemoglobin Sodium 171 H* Potassium Chloride Carbon Dioxide BUN Creatinine Glucose POC Glucose 176 H 143 H Hemoglobin A1c Lactic Acid Calcium Magnesium Transferrin AST ALT Alkaline Phosphatase Total Creatine Kinase CK-MB (CK-2) Total Protein Albumin TSH Urine Creatinine Urine Total Protein 04/22/21 04/22/21 04/22/21 04:52 06:07 06:09 WBC 11.2 H RBC Hct 44.3 H MCH 27 L RDW 17.1 H Plt Count 86 L Seg Neuts % (Manual) 86.0 H Lymphocytes % (Manual) 13.0 L Nucleated RBC % Seg Neutrophils # Man 9.6 H Lymphocytes # (Manual) ABG pH ABG pO2 ABG O2 Saturation ABG Base Excess ABG Hemoglobin Oxyhemoglobin Sodium Potassium Chloride Carbon Dioxide BUN Creatinine Glucose POC Glucose 206 H 163 H Hemoglobin A1c Lactic Acid Calcium Magnesium Transferrin AST ALT Alkaline Phosphatase Total Creatine Kinase CK-MB (CK-2) Total Protein Albumin TSH Urine Creatinine Urine Total Protein 04/22/21 04/22/21 04/22/21 07:18 08:59 08:59 WBC RBC Hct MCH RDW Plt Count Seg Neuts % (Manual) Lymphocytes % (Manual) Nucleated RBC % Seg Neutrophils # Man Lymphocytes # (Manual) ABG pH ABG pO2 ABG O2 Saturation ABG Base Excess ABG Hemoglobin Oxyhemoglobin Sodium 169 H* Potassium 3.5 L Chloride 134.5 H Carbon Dioxide 20 L BUN 95 H Creatinine 3.6 H Glucose 151 H POC Glucose 158 H Hemoglobin A1c Lactic Acid Calcium Magnesium Transferrin AST 121 H ALT 75 H Alkaline Phosphatase 137 H Total Creatine Kinase 3105 H CK-MB (CK-2) Total Protein 6.0 L Albumin 2.1 L TSH Urine Creatinine Urine Total Protein 04/22/21 04/22/21 04/22/21 09:44 10:24 12:20 WBC RBC Hct MCH RDW Plt Count Seg Neuts % (Manual) Lymphocytes % (Manual) Nucleated RBC % Seg Neutrophils # Man Lymphocytes # (Manual) ABG pH ABG pO2 ABG O2 Saturation ABG Base Excess ABG Hemoglobin Oxyhemoglobin Sodium Potassium Chloride Carbon Dioxide BUN Creatinine Glucose POC Glucose 107 H 131 H Hemoglobin A1c Lactic Acid Calcium Magnesium 2.80 H Transferrin AST ALT Alkaline Phosphatase Total Creatine Kinase CK-MB (CK-2) Total Protein Albumin TSH Urine Creatinine Urine Total Protein 04/22/21 04/22/21 04/22/21 13:19 14:16 15:22 WBC RBC Hct MCH RDW Plt Count Seg Neuts % (Manual) Lymphocytes % (Manual) Nucleated RBC % Seg Neutrophils # Man Lymphocytes # (Manual) ABG pH ABG pO2 ABG O2 Saturation ABG Base Excess ABG Hemoglobin Oxyhemoglobin Sodium Potassium Chloride Carbon Dioxide BUN Creatinine Glucose POC Glucose 147 H 154 H 136 H Hemoglobin A1c Lactic Acid Calcium Magnesium Transferrin AST ALT Alkaline Phosphatase Total Creatine Kinase CK-MB (CK-2) Total Protein Albumin TSH Urine Creatinine Urine Total Protein 04/22/21 04/22/21 04/22/21 15:55 15:55 16:22 WBC RBC Hct MCH RDW Plt Count Seg Neuts % (Manual) Lymphocytes % (Manual) Nucleated RBC % Seg Neutrophils # Man Lymphocytes # (Manual) ABG pH ABG pO2 ABG O2 Saturation ABG Base Excess ABG Hemoglobin Oxyhemoglobin Sodium 169 H* Potassium Chloride 133.5 H Carbon Dioxide 19 L BUN 94 H Creatinine 3.8 H Glucose 150 H POC Glucose 140 H Hemoglobin A1c 17.1 H Lactic Acid Calcium Magnesium Transferrin AST ALT Alkaline Phosphatase Total Creatine Kinase CK-MB (CK-2) Total Protein Albumin TSH Urine Creatinine Urine Total Protein 04/22/21 04/22/21 04/22/21 18:11 18:26 23:19 WBC RBC Hct MCH RDW Plt Count Seg Neuts % (Manual) Lymphocytes % (Manual) Nucleated RBC % Seg Neutrophils # Man Lymphocytes # (Manual) ABG pH ABG pO2 ABG O2 Saturation ABG Base Excess ABG Hemoglobin Oxyhemoglobin Sodium Potassium Chloride Carbon Dioxide BUN Creatinine Glucose POC Glucose 146 H 188 H Hemoglobin A1c Lactic Acid Calcium Magnesium Transferrin AST ALT Alkaline Phosphatase Total Creatine Kinase 2497 H CK-MB (CK-2) Total Protein Albumin TSH Urine Creatinine Urine Total Protein 04/23/21 04/23/21 04/23/21 00:27 05:23 07:50 WBC RBC Hct MCH RDW Plt Count Seg Neuts % (Manual) Lymphocytes % (Manual) Nucleated RBC % Seg Neutrophils # Man Lymphocytes # (Manual) ABG pH ABG pO2 ABG O2 Saturation ABG Base Excess ABG Hemoglobin Oxyhemoglobin Sodium 162 H* Potassium Chloride Carbon Dioxide BUN Creatinine Glucose POC Glucose 212 H 239 H Hemoglobin A1c Lactic Acid Calcium Magnesium Transferrin AST ALT Alkaline Phosphatase Total Creatine Kinase CK-MB (CK-2) Total Protein Albumin TSH Urine Creatinine Urine Total Protein 04/23/21 04/23/21 04/23/21 08:13 08:13 08:13 WBC 11.9 H RBC Hct MCH 26 L RDW 16.5 H Plt Count 72 L Seg Neuts % (Manual) 80.0 H Lymphocytes % (Manual) 5.0 L Nucleated RBC % Seg Neutrophils # Man 9.5 H Lymphocytes # (Manual) 0.6 L ABG pH ABG pO2 ABG O2 Saturation ABG Base Excess ABG Hemoglobin Oxyhemoglobin Sodium 164 H* Potassium Chloride 128.0 H Carbon Dioxide 21 L BUN 93 H Creatinine 3.8 H Glucose 293 H POC Glucose Hemoglobin A1c Lactic Acid Calcium Magnesium Transferrin AST 99 H ALT 70 H Alkaline Phosphatase 147 H Total Creatine Kinase 1803 H CK-MB (CK-2) Total Protein 6.1 L Albumin 2.0 L TSH Urine Creatinine Urine Total Protein 04/23/21 04/23/21 04/23/21 12:06 17:35 18:17 WBC RBC Hct MCH RDW Plt Count Seg Neuts % (Manual) Lymphocytes % (Manual) Nucleated RBC % Seg Neutrophils # Man Lymphocytes # (Manual) ABG pH ABG pO2 ABG O2 Saturation ABG Base Excess ABG Hemoglobin Oxyhemoglobin Sodium 160 H Potassium Chloride Carbon Dioxide BUN Creatinine Glucose POC Glucose 311 H 370 H Hemoglobin A1c Lactic Acid Calcium Magnesium Transferrin AST ALT Alkaline Phosphatase Total Creatine Kinase CK-MB (CK-2) Total Protein Albumin TSH Urine Creatinine Urine Total Protein 04/24/21 04/24/21 04/24/21 02:13 06:00 06:00 WBC RBC Hct MCH 27 L RDW 17.0 H Plt Count 58 L Seg Neuts % (Manual) Lymphocytes % (Manual) 2.0 L Nucleated RBC % Seg Neutrophils # Man 8.9 H Lymphocytes # (Manual) 0.2 L ABG pH ABG pO2 ABG O2 Saturation ABG Base Excess ABG Hemoglobin Oxyhemoglobin Sodium 160 H Potassium Chloride Carbon Dioxide BUN Creatinine Glucose POC Glucose Hemoglobin A1c Lactic Acid Calcium Magnesium 2.90 H Transferrin AST ALT Alkaline Phosphatase Total Creatine Kinase CK-MB (CK-2) Total Protein Albumin TSH Urine Creatinine Urine Total Protein 04/24/21 04/24/21 04/24/21 07:46 08:15 11:34 WBC RBC Hct MCH RDW Plt Count Seg Neuts % (Manual) Lymphocytes % (Manual) Nucleated RBC % Seg Neutrophils # Man Lymphocytes # (Manual) ABG pH ABG pO2 ABG O2 Saturation ABG Base Excess ABG Hemoglobin Oxyhemoglobin Sodium 159 H Potassium Chloride 125.6 H Carbon Dioxide 19 L BUN 94 H Creatinine 3.7 H Glucose 514 H* POC Glucose 395 H 422 H Hemoglobin A1c Lactic Acid Calcium Magnesium Transferrin AST ALT 61 H Alkaline Phosphatase 155 H Total Creatine Kinase CK-MB (CK-2) Total Protein 6.1 L Albumin 1.5 L TSH Urine Creatinine Urine Total Protein 04/24/21 04/24/21 04/24/21 13:11 14:01 15:03 WBC RBC Hct MCH RDW Plt Count Seg Neuts % (Manual) Lymphocytes % (Manual) Nucleated RBC % Seg Neutrophils # Man Lymphocytes # (Manual) ABG pH ABG pO2 ABG O2 Saturation ABG Base Excess ABG Hemoglobin Oxyhemoglobin Sodium Potassium Chloride Carbon Dioxide BUN Creatinine Glucose POC Glucose 384 H 423 H 418 H Hemoglobin A1c Lactic Acid Calcium Magnesium Transferrin AST ALT Alkaline Phosphatase Total Creatine Kinase CK-MB (CK-2) Total Protein Albumin TSH Urine Creatinine Urine Total Protein 04/24/21 04/24/21 04/24/21 17:29 18:28 19:41 WBC RBC Hct MCH RDW Plt Count Seg Neuts % (Manual) Lymphocytes % (Manual) Nucleated RBC % Seg Neutrophils # Man Lymphocytes # (Manual) ABG pH ABG pO2 ABG O2 Saturation ABG Base Excess ABG Hemoglobin Oxyhemoglobin Sodium Potassium Chloride Carbon Dioxide BUN Creatinine Glucose POC Glucose 335 H 321 H Hemoglobin A1c Lactic Acid Calcium Magnesium Transferrin 112 L AST ALT Alkaline Phosphatase Total Creatine Kinase CK-MB (CK-2) Total Protein Albumin TSH Urine Creatinine Urine Total Protein 04/24/21 04/25/21 04/25/21 22:33 01:28 02:28 WBC RBC Hct MCH RDW Plt Count Seg Neuts % (Manual) Lymphocytes % (Manual) Nucleated RBC % Seg Neutrophils # Man Lymphocytes # (Manual) ABG pH ABG pO2 ABG O2 Saturation ABG Base Excess ABG Hemoglobin Oxyhemoglobin Sodium Potassium Chloride Carbon Dioxide BUN Creatinine Glucose POC Glucose 349 H 283 H 247 H Hemoglobin A1c Lactic Acid Calcium Magnesium Transferrin AST ALT Alkaline Phosphatase Total Creatine Kinase CK-MB (CK-2) Total Protein Albumin TSH Urine Creatinine Urine Total Protein 04/25/21 04/25/21 04/25/21 03:25 04:22 05:40 WBC RBC Hct MCH RDW Plt Count Seg Neuts % (Manual) Lymphocytes % (Manual) Nucleated RBC % Seg Neutrophils # Man Lymphocytes # (Manual) ABG pH ABG pO2 ABG O2 Saturation ABG Base Excess ABG Hemoglobin Oxyhemoglobin Sodium Potassium Chloride Carbon Dioxide BUN Creatinine Glucose POC Glucose 196 H 207 H 204 H Hemoglobin A1c Lactic Acid Calcium Magnesium Transferrin AST ALT Alkaline Phosphatase Total Creatine Kinase CK-MB (CK-2) Total Protein Albumin TSH Urine Creatinine Urine Total Protein 04/25/21 04/25/21 04/25/21 05:45 06:43 07:37 WBC RBC Hct MCH 27 L RDW 17.0 H Plt Count 64 L Seg Neuts % (Manual) 84.0 H Lymphocytes % (Manual) 6.0 L Nucleated RBC % 1.0 H Seg Neutrophils # Man Lymphocytes # (Manual) 0.4 L ABG pH ABG pO2 ABG O2 Saturation ABG Base Excess ABG Hemoglobin Oxyhemoglobin Sodium Potassium Chloride Carbon Dioxide BUN Creatinine Glucose POC Glucose 238 H 201 H Hemoglobin A1c Lactic Acid Calcium Magnesium Transferrin AST ALT Alkaline Phosphatase Total Creatine Kinase CK-MB (CK-2) Total Protein Albumin TSH Urine Creatinine Urine Total Protein 04/25/21 04/25/21 04/25/21 08:11 08:11 08:41 WBC RBC Hct MCH RDW Plt Count Seg Neuts % (Manual) Lymphocytes % (Manual) Nucleated RBC % Seg Neutrophils # Man Lymphocytes # (Manual) ABG pH ABG pO2 ABG O2 Saturation ABG Base Excess ABG Hemoglobin Oxyhemoglobin Sodium 148 H D Potassium Chloride 115.7 H Carbon Dioxide 21 L BUN 83 H Creatinine 3.6 H Glucose 247 H POC Glucose 220 H Hemoglobin A1c Lactic Acid Calcium Magnesium 2.50 H Transferrin AST 63 H ALT 62 H Alkaline Phosphatase 143 H Total Creatine Kinase CK-MB (CK-2) Total Protein 5.4 L Albumin 1.4 L TSH Urine Creatinine Urine Total Protein 04/25/21 09:22 WBC RBC Hct MCH RDW Plt Count Seg Neuts % (Manual) Lymphocytes % (Manual) Nucleated RBC % Seg Neutrophils # Man Lymphocytes # (Manual) ABG pH ABG pO2 ABG O2 Saturation ABG Base Excess ABG Hemoglobin Oxyhemoglobin Sodium Potassium Chloride Carbon Dioxide BUN Creatinine Glucose POC Glucose 228 H Hemoglobin A1c Lactic Acid Calcium Magnesium Transferrin AST ALT Alkaline Phosphatase Total Creatine Kinase CK-MB (CK-2) Total Protein Albumin TSH Urine Creatinine Urine Total Protein
--- NOTE | 2021-04-25 10:35 | Vascular Lab Report ---
DUPLEX DOPPLER UPPER EXTREMITY VENOUS, BILATERAL INDICATION / CLINICAL INFORMATION: swelling/tightness. TECHNIQUE: Duplex doppler imaging was performed through the veins of the right and left upper extremi ty using venous compression and other maneuvers. COMPARISON: None available. FINDINGS: RIGHT INTERNAL JUGULAR VEIN: Negative. RIGHT SUBCLAVIAN VEIN: Negative. RIGHT AXILLARY VEIN: Negative. RIGHT BRACHIAL VEIN: Negative. RIGHT FOREARM VEINS: Negative. RIGHT BASILIC VEIN (SUPERFICIAL): Negative. LEFT INTERNAL JUGULAR VEIN: Negative. LEFT SUBCLAVIAN VEIN: Negative. LEFT AXILLARY VEIN: Negative. LEFT BRACHIAL VEIN: Negative. LEFT FOREARM VEINS: Negative. LEFT BASILIC VEIN (SUPERFICIAL): Negative. ADDITIONAL FINDINGS: None. IMPRESSION: 1. No sonographic evidence for DVT in the right or left upper extremity. Signer Name: Gregor Langley MD Signed: 04/25/2021 10:31 AM Workstation Name: [id number]
--- NOTE | 2021-04-25 12:09 | Progress Note ---
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 renally dose meds Strict I&O Subjective Date of service: 04/25/21 Principal diagnosis: Acute respiratory failure Interval history: remains to have altered mental status Objective - Vital Signs Vital signs: Vital Signs - 12hr 04/25/21 04/25/21 04/25/21 00:15 00:30 00:45 Temperature Pulse Rate 97 H 103 H 103 H Pulse Rate [ Right Radial] Respiratory 25 H 46 H 26 H Rate Blood Pressure 140/75 163/80 163/80 O2 Sat by Pulse 93 94 93 Oximetry 04/25/21 04/25/21 04/25/21 01:01 01:15 01:30 Temperature Pulse Rate 101 H 96 H 103 H Pulse Rate [ Right Radial] Respiratory 27 H 24 40 H Rate Blood Pressure 139/61 139/61 117/69 O2 Sat by Pulse 93 92 94 Oximetry 04/25/21 04/25/21 04/25/21 01:45 02:00 02:15 Temperature Pulse Rate 105 H 99 H 103 H Pulse Rate [ Right Radial] Respiratory 29 H 29 H 26 H Rate Blood Pressure 117/69 118/60 118/60 O2 Sat by Pulse 94 94 95 Oximetry 04/25/21 04/25/21 04/25/21 02:30 02:45 03:00 Temperature Pulse Rate 106 H 101 H 102 H Pulse Rate [ Right Radial] Respiratory 27 H 27 H 26 H Rate Blood Pressure 123/62 123/62 124/64 O2 Sat by Pulse 96 95 96 Oximetry 04/25/21 04/25/21 04/25/21 03:15 03:21 03:30 Temperature 100.2 F H Pulse Rate 102 H 109 H Pulse Rate [ Right Radial] Respiratory 26 H 41 H Rate Blood Pressure 124/64 151/75 O2 Sat by Pulse 97 96 Oximetry 04/25/21 04/25/21 04/25/21 03:45 04:00 04:15 Temperature Pulse Rate 107 H 110 H 109 H Pulse Rate [ 108 H Right Radial] Respiratory 25 H 26 H 27 H Rate Blood Pressure 151/75 145/65 145/65 O2 Sat by Pulse 96 96 96 Oximetry 04/25/21 04/25/21 04/25/21 04:30 04:45 05:00 Temperature Pulse Rate 102 H 105 H 99 H Pulse Rate [ Right Radial] Respiratory 24 25 H 24 Rate Blood Pressure 119/61 119/61 102/60 O2 Sat by Pulse 95 95 94 Oximetry 04/25/21 04/25/21 04/25/21 05:15 05:30 05:45 Temperature Pulse Rate 101 H 108 H 102 H Pulse Rate [ Right Radial] Respiratory 25 H 31 H 24 Rate Blood Pressure 102/60 106/70 106/70 O2 Sat by Pulse 96 95 95 Oximetry 04/25/21 04/25/21 04/25/21 06:00 06:15 06:30 Temperature Pulse Rate 96 H 103 H 100 H Pulse Rate [ Right Radial] Respiratory 24 31 H 22 Rate Blood Pressure 118/60 118/60 109/60 O2 Sat by Pulse 93 96 96 Oximetry 04/25/21 04/25/21 04/25/21 06:45 07:00 07:15 Temperature Pulse Rate 101 H 97 H 101 H Pulse Rate [ Right Radial] Respiratory 24 22 23 Rate Blood Pressure 109/60 100/58 100/58 O2 Sat by Pulse 95 96 96 Oximetry 04/25/21 08:00 Temperature 98 F Pulse Rate Pulse Rate [ Right Radial] Respiratory Rate Blood Pressure O2 Sat by Pulse Oximetry - Lab 04/25/21 05:45 04/25/21 08:11 Most recent lab results ABG pH 7.486 pH Units (7.350-7.450) H 04/21/21 15:47 ABG pCO2 31.6 mm Hg 04/21/21 15:47 ABG pO2 168.1 mm Hg (80.0-90.0) H 04/21/21 15:47 ABG HCO3 23.3 mmol/L (20.0-26.0) 04/21/21 15:47 ABG O2 Saturation 99.1 % (95.0-99.0) H 04/21/21 15:47 Calcium 8.6 mg/dL (8.4-10.2) 04/25/21 08:11 Phosphorus 2.70 mg/dL (2.5-4.5) D 04/25/21 08:11 Magnesium 2.50 mg/dL (1.7-2.3) H 04/25/21 08:11 Urine Creatinine 44.3 mg/dL (0.1-20.0) H 04/21/21 08:01 Urine Sodium 71 mmol/L 04/21/21 08:01 Urine Total Protein 12 mg/dL (5-11.8) H 04/21/21 08:01 Medications & Allergies - Medications Allergies/Adverse Reactions: Allergies No Known Allergies Allergy (Unverified 04/20/21 14:35) Active Medications: Generic Name Dose Route Start Last Admin Trade Name Freq PRN Reason Stop Dose Admin Acetaminophen 650 mg 04/20/21 21:31 Acetaminophen 325 Mg Tab PO Q4H PRN Pain MILD(1-3)/Fever >100.5/TURCIOS Albuterol 2.5 mg 04/22/21 14:49 04/23/21 15:18 Albuterol 2.5 Mg/3 Ml Nebu IH 2.5 mg Q4HRT PRN Administration Shortness Of Breath Lipase/Protease/Amylase 1 each 04/22/21 16:30 Lipase 10,500/Protease 25,000/Amylase 43,750 (Units) Dr Vasquez FEEDTUBE PRN PRN For Clogged Feeding Tube Dextrose 50 ml 04/24/21 11:36 Dextrose 50% In Water (25gm) 50 Ml Syringe IV Q30MIN PRN Hypoglycemia Protocol Famotidine 20 mg 04/25/21 10:00 04/25/21 09:24 Famotidine 20 Mg Tab FEEDTUBE 20 mg DAILY AZIZA Administration Hydralazine HCl 10 mg 04/24/21 21:22 Hydralazine 20 Mg/1 Ml Inj IV Q4HR PRN elevated BP Dextrose 1,000 mls @ 125 mls/hr 04/21/21 02:00 04/25/21 08:50 D5w IV 125 mls/hr DIRECT AZIZA Administration Insulin Human Regular 100 100 mls @ 1 mls/hr 04/24/21 12:00 04/25/21 11:45 units/ Sodium Chloride IV 6 units/hr TITR AZIZA 6 mls/hr Titration Protocol 1 UNITS/HR Metoclopramide HCl 5 mg 04/20/21 21:31 Metoclopramide 10 Mg/2 Ml Inj IV Q6H PRN Nausea And Vomiting Morphine Sulfate 2 mg 04/20/21 21:31 04/24/21 23:20 Morphine 2 Mg/1 Ml Inj IV 2 mg Q4H PRN Administration Pain, Moderate (4-6) Ondansetron HCl 4 mg 04/20/21 21:31 Ondansetron 4 Mg/2 Ml Inj IV Q8H PRN Nausea And Vomiting Simple Syrup 15 ml 04/22/21 16:30 Simple Syrup 15 Ml FEEDTUBE PRN PRN Hypoglycemia Simple Syrup 30 ml 04/22/21 16:30 Simple Syrup 15 Ml FEEDTUBE PRN PRN Hypoglycemia Sodium Bicarbonate 325 mg 04/22/21 16:30 Sodium Bicarbonate 325 Mg Tab FEEDTUBE PRN PRN For Clogged Feeding Tube Sodium Chloride 10 ml 04/20/21 22:00 04/25/21 09:24 Sodium Chloride 0.9% 10 Ml Flush Syringe IV 10 ml BID AZIZA Administration Sodium Chloride 10 ml 04/20/21 21:31 Sodium Chloride 0.9% 10 Ml Flush Syringe IV PRN PRN LINE FLUSH
--- NOTE | 2021-04-25 12:38 | Progress Note ---
Assessment and Plan Assessment and plan: This is a 80-year-old female, correction resident with past medical history of GERD, hypothyroidism, hyperlipidemia, schizophrenia and dementia admitted with hypothermia, hyponatremia, hypokalemia, lactic acidosis, acute kidney injury, rhabdomyolysis and hyperosmolar nonketotic state. Hospital Course to Date: This is a 80-year-old female who was correction resident at [place] with GERD, hypothyroidism, hyperlipidemia, schizophrenia and dementia presented to the emergency department on 04/20 after being found unresponsive by the staff via EMS. Per EMS glucose levels read as high. Work-up in the emergency department revealed severe hypernatremia, leukocytosis, metabolic acidosis, hyperchloremia, elevated BUN/creatinine, lactic acidosis and hyperglycemia. Patient was also hypothermic on admit. CT head showed findings suggestive of the possibility of normal pressure hydrocephalus. Patient was admitted to the hospitalist service with acute metabolic encephalopathy, diabetic hyperosmolar nonketotic state, acute kidney injury, hypernatremia, rhabdomyolysis and leukocytosis with consults to nephrology and CCM. 04/21: Given 1 L LR bolus per nephrology and D5W increased to 125 mL's per hour, COVID-19 PCR pending, CXR and ABG ordered as patient was weaned from BiPAP to 3 L nasal cannula however was uptitrated back to nonrebreather. Will obtain blood cultures x2 given her leukocytosis and hypothermia. Replace potassium. Neurosurgery and neurology consulted and Luther catheter placed. 04/22: Improvement to sodium noted, slight hypokalemia which will be repleted, slight improvement to renal function, LFTs and rhabdomyolysis. Seen by neurosurgery today. Patient still making urine. transition to ssi and start TF as AG 15 04/23/2021: Given racemic epinephrine again due to stridor, continue IV fluids per nephrology, continue to trend sodium and BMP. 04/24/2021: /30 increased d/t hyperglycemia but recent BMP showed BG>300, gave additional 5 units IV insulin and ordered 5 units TID scheduled. However after IV insulin her PCOT was 400. Start on insulin gtt for hyperglycemia. Per RN she was not of IV D5 overniught d/t having one IV which was needed for emergency. Day RN did start dextrose. Remains with hyperglycemia. 04/25: Patient obtunded, withdrawal to pain only, on 50%Venti mask SPO2 abobe 92%. Plan to transition to SubQ insulin. Patient with mild hypernatremia this am, FWF added, will stop IVF for now. Assessment and Plan #Neuro: Acute metabolic encephalopathy #Normal Pressure Hydrocephalus -CT head shows lateral ventricles and third ventricle dilation, raises possibility of normal pressure hydrocephalus -Neurology and neurosurgery consulted, appreciate recommendations -neurosurgery no acute interventions -Maintain sleep-wake cycle -Avoid delirium -Correct electrolyte derangements -Hold off on restarting home antipsychotic medications when obtained #Respiratory: Acute hypoxic respiratory failure #CAP -s/p Bipap -currently on ventimask 50% SPO2 above 92% -c/f stridor s/p racimec epi x2 04/22 and 04/23 -Supplemental oxygen as needed -SPO2 monitoring for SPO2 above 92% -Pulmonary hygiene -Repeat CXR shows increased interstitial prominence of densities in bilateral lungs #GI:Transaminitis #Hypoalbuminemia -Presented with transaminitis -Trend LFTs -Ntr consult for TF -BR: Senokot -PPI #:Acute Kidney Injury (SYED) likely secondary to vasomotor nephropathy #Severe hypernatremia-improved #Urinary Retention-resolved -FeNA 0.50 indicating prerenal sate -Nephrology and CCM consulted, appreciate recommendations -Luther catheter placed for strict intake and output -Avoid nephrotoxic medication -FWF added for High Na -Trend BMP -Will D/C D5w due to persistent hyperglycemia -Renally dose medications -Trend CK -renal US WNL per read #ID:CAP #Leukocytrosis- resolved -Patient presented hypothemic -CXR shows increased interstitial prominence of densities in bilateral lungs -COVID-19 PCR negative -Blood culture x2 NGTD -Antibiotic therapy course ended today 04/25 -Patient remains afebrile, with no leukocytosis -Monitor WBC and fever curve -Continue to F/U on B.cult -Daily CBC monitor -Consider ID consult if febrile or/and if leukocytosis reoccur #Endo:Hyperglycemia #s/p HHNK -Patient was placed back on insulin gtt on 04/24 due to severe hyperglycemia -Patient remains on D5W for high NA, NA is improving plan to D/C gtt today -Will attempt to transition to SubQ insulin -Avoid hypoglycemia #Heme:Thrombocytopenia -Plt remains low -AC still on hold -Trend CBC -Transfuse to hemoglobin less than 7 -Monitor for bleeding -r/o DVT, BUE dopplar US pending -SCD to bilateral lower extremities while in bed The high probability of a clinically significant, sudden or life threatening deterioration of the [multi] system(s) required my full and direct attention, intervention and personal management. The aggregate critical care time was [60] minutes. This time is in addition to time spent performing reported procedures but includes the following: [x] Data Review and interpretation [x] Patient assessment and monitoring of vital signs [x] Documentation [x] Medication orders and management Disposition Plan: ICU Total Time Spent with Patient (Minutes): 60 History Interval history: Patient seen and examined at the bedside. Patient remains obtunded, on 50% Venti mask SPO2 above 92%. Remains on insulin gtt and D5w. Hospitalist Physical - Constitutional Vitals: Temp Pulse Resp BP Pulse Ox 98 F 99 H 28 H 148/65 96 04/25/21 08:00 04/25/21 12:30 04/25/21 12:30 04/25/21 12:30 04/25/21 12:30 General appearance: Present: mild distress, other (Lying in bed unresponsive) - EENT Eyes: Present: PERRL ENT: other (Dry oral mucosa) - Respiratory Respiratory effort: labored, accessory muscle use Respiratory: bilateral: rhonchi - Cardiovascular Rhythm: regular Heart Sounds: Present: S1 & S2 - Extremities Extremities: no ischemia, pulses intact, pulses symmetrical Extremity abnormal: edema - Peripheral Assessment Generalized Edema Type: Non-pitting Edema Degree: 1+ Capillary Refill: < 3 seconds Skin Temperature: Warm Peripheral Pulses: within normal limits - Abdominal General gastrointestinal: soft, non-tender, normal bowel sounds - Integumentary Integumentary: Present: warm, dry - Psychiatric Psychiatric: other (Unresponsive) - Neurologic Neurologic: other (Unresponsive) - Allied Health Allied health notes reviewed: nursing HEART Score - HEART Score Troponin: Troponin T 0.021 ng/mL (0.00-0.029) 04/20/21 17:10 Results - Labs CBC & Chem 7: 04/26/21 09:33 04/26/21 09:33 Labs: Laboratory Last Values WBC 7.2 K/mm3 (4.5-11.0) 04/25/21 05:45 RBC 3.85 M/mm3 (3.65-5.03) 04/25/21 05:45 Hgb 10.3 gm/dl (10.1-14.3) 04/25/21 05:45 Hct 33.2 % (30.3-42.9) 04/25/21 05:45 MCV 86 fl (79-97) 04/25/21 05:45 MCH 27 pg (28-32) L 04/25/21 05:45 MCHC 31 % (30-34) 04/25/21 05:45 RDW 17.0 % (13.2-15.2) H 04/25/21 05:45 Plt Count 64 K/mm3 (140-440) L 04/25/21 05:45 Add Manual Diff Complete 04/25/21 05:45 Total Counted 100 04/25/21 05:45 Seg Neutrophils % Endoscope Technician 04/24/21 06:00 Seg Neuts % (Manual) 84.0 % (40.0-70.0) H 04/25/21 05:45 Band Neutrophils % 6.0 % 04/25/21 05:45 Lymphocytes % (Manual) 6.0 % (13.4-35.0) L 04/25/21 05:45 Monocytes % (Manual) 1.0 % (0.0-7.3) 04/25/21 05:45 Eosinophils % (Manual) 2.0 % (0.0-4.3) 04/25/21 05:45 Metamyelocytes % 1.0 % 04/25/21 05:45 Myelocytes % 8.0 % 04/23/21 08:13 Nucleated RBC % 1.0 % (0.0-0.9) H 04/25/21 05:45 Seg Neutrophils # Man 6.0 K/mm3 (1.8-7.7) 04/25/21 05:45 Band Neutrophils # 0.4 K/mm3 04/25/21 05:45 Lymphocytes # (Manual) 0.4 K/mm3 (1.2-5.4) L 04/25/21 05:45 Abs React Lymphs (Man) 0.0 K/mm3 04/25/21 05:45 Monocytes # (Manual) 0.1 K/mm3 (0.0-0.8) 04/25/21 05:45 Eosinophils # (Manual) 0.1 K/mm3 (0.0-0.4) 04/25/21 05:45 Basophils # (Manual) 0.0 K/mm3 (0.0-0.1) 04/25/21 05:45 Metamyelocytes # 0.1 K/mm3 04/25/21 05:45 Myelocytes # 0.0 K/mm3 04/25/21 05:45 Promyelocytes # 0.0 K/mm3 04/25/21 05:45 Blast Cells # 0.0 K/mm3 04/25/21 05:45 WBC Morphology Not Reportable 04/25/21 05:45 Hypersegmented Neuts Not Reportable 04/25/21 05:45 Hyposegmented Neuts Not Reportable 04/25/21 05:45 Hypogranular Neuts Not Reportable 04/25/21 05:45 Smudge Cells Not Reportable 04/25/21 05:45 Toxic Granulation Not Reportable 04/25/21 05:45 Toxic Vacuolation Not Reportable 04/25/21 05:45 Dohle Bodies Not Reportable 04/25/21 05:45 Pelger-Huet Anomaly Not Reportable 04/25/21 05:45 Moni Rods Not Reportable 04/25/21 05:45 Platelet Estimate Consistent w auto 04/25/21 05:45 Clumped Platelets Not Reportable 04/25/21 05:45 Plt Clumps, EDTA Not Reportable 04/25/21 05:45 Large Platelets Not Reportable 04/25/21 05:45 Giant Platelets Few 04/25/21 05:45 Platelet Satelliting Not Reportable 04/25/21 05:45 Plt Morphology Comment Not Reportable 04/25/21 05:45 RBC Morphology Not Reportable 04/25/21 05:45 Dimorphic RBCs Not Reportable 04/25/21 05:45 Polychromasia Not Reportable 04/25/21 05:45 Hypochromasia Not Reportable 04/25/21 05:45 Poikilocytosis Not Reportable 04/25/21 05:45 Anisocytosis 1+ 04/25/21 05:45 Microcytosis Not Reportable 04/25/21 05:45 Macrocytosis Not Reportable 04/25/21 05:45 Spherocytes Not Reportable 04/25/21 05:45 Pappenheimer Bodies Not Reportable 04/25/21 05:45 Sickle Cells Not Reportable 04/25/21 05:45 Target Cells Not Reportable 04/25/21 05:45 Tear Drop Cells Not Reportable 04/25/21 05:45 Ovalocytes Not Reportable 04/25/21 05:45 Helmet Cells Not Reportable 04/25/21 05:45 Parkinson-[place] Bodies Not Reportable 04/25/21 05:45 [place] Rings Not Reportable 04/25/21 05:45 Roslyn Cells 1+ 04/25/21 05:45 Bite Cells Not Reportable 04/25/21 05:45 Crenated Cell Not Reportable 04/25/21 05:45 Elliptocytes Not Reportable 04/25/21 05:45 Acanthocytes (Spur) 1+ 04/25/21 05:45 Rouleaux Not Reportable 04/25/21 05:45 Hemoglobin C Crystals Not Reportable 04/25/21 05:45 Schistocytes Not Reportable 04/25/21 05:45 Malaria parasites Not Reportable 04/25/21 05:45 Herrera Bodies Not Reportable 04/25/21 05:45 Hem Pathologist Commnt No 04/25/21 05:45 ABG pH 7.486 pH Units (7.350-7.450) H 04/21/21 15:47 ABG pCO2 31.6 mm Hg 04/21/21 15:47 ABG pO2 168.1 mm Hg (80.0-90.0) H 04/21/21 15:47 ABG HCO3 23.3 mmol/L (20.0-26.0) 04/21/21 15:47 ABG O2 Saturation 99.1 % (95.0-99.0) H 04/21/21 15:47 ABG O2 Content 12.7 (0.0-44) 04/21/21 15:47 ABG Base Excess 0.3 mmol/L (-2.0-3.0) 04/21/21 15:47 ABG Hemoglobin 8.9 gm/dl (12.0-16.0) L 04/21/21 15:47 ABG Carboxyhemoglobin 1.0 % (0.0-5.0) 04/21/21 15:47 ABG Methemoglobin 0.6 % (0.0-1.5) 04/21/21 15:47 VBG pH 7.397 (7.320-7.420) 04/20/21 17:10 Oxyhemoglobin 97.5 % (95.0-99.0) 04/21/21 15:47 FiO2 100 % 04/21/21 15:47 Sodium 148 mmol/L (137-145) H D 04/25/21 08:11 Potassium 3.7 mmol/L (3.6-5.0) 04/25/21 08:11 Chloride 115.7 mmol/L (98-107) H 04/25/21 08:11 Carbon Dioxide 21 mmol/L (22-30) L 04/25/21 08:11 Anion Gap 15 mmol/L 04/25/21 08:11 BUN 83 mg/dL (7-17) H 04/25/21 08:11 Creatinine 3.6 mg/dL (0.6-1.2) H 04/25/21 08:11 Estimated GFR 15 ml/min 04/25/21 08:11 BUN/Creatinine Ratio 23 % 04/25/21 08:11 Glucose 247 mg/dL (65-100) H 04/25/21 08:11 POC Glucose 229 mg/dL (70-105) H 04/25/21 12:23 Hemoglobin A1c 17.1 % (4-6) H 04/22/21 15:55 Lactic Acid 1.90 mmol/L (0.7-2.0) 04/20/21 19:56 Calcium 8.6 mg/dL (8.4-10.2) 04/25/21 08:11 Phosphorus 2.70 mg/dL (2.5-4.5) D 04/25/21 08:11 Magnesium 2.50 mg/dL (1.7-2.3) H 04/25/21 08:11 Iron 62 ug/dL (37-170) 04/24/21 17:29 TIBC 285 mcg/dL (250-450) 04/24/21 17:29 % Saturation 21.75 % 04/24/21 17:29 Transferrin 112 mg/dl (192-382) L 04/24/21 17:29 Total Bilirubin 0.20 mg/dL (0.1-1.2) 04/25/21 08:11 AST 63 units/L (5-40) H 04/25/21 08:11 ALT 62 units/L (7-56) H 04/25/21 08:11 Alkaline Phosphatase 143 units/L (35-129) H 04/25/21 08:11 Ammonia 29.0 umol/L (25-60) 04/20/21 17:10 Total Creatine Kinase 1803 units/L (30-135) H 04/23/21 08:13 CK-MB (CK-2) 36.0 ng/mL (0.0-4.0) H 04/20/21 17:10 CK-MB (CK-2) Rel Index 0.9 (0-4) 04/20/21 17:10 Troponin T 0.021 ng/mL (0.00-0.029) 04/20/21 17:10 Total Protein 5.4 g/dL (6.3-8.2) L 04/25/21 08:11 Albumin 1.4 g/dL (3.9-5) L 04/25/21 08:11 Albumin/Globulin Ratio 0.4 % 04/25/21 08:11 TSH 6.040 mlU/mL (0.270-4.200) H 04/20/21 17:10 Free T4 0.93 ng/dL (0.76-1.46) 04/20/21 17:10 Urine Color Yellow (Yellow) 04/20/21 Unknown Urine Turbidity Slightly-cloudy (Clear) 04/20/21 Unknown Urine pH 5.0 (5.0-7.0) 04/20/21 Unknown Ur Specific [place] 1.016 (1.003-1.030) 04/20/21 Unknown Urine Protein <15 mg/dl mg/dL (Negative) 04/20/21 Unknown Urine Glucose (UA) >=500 mg/dL (Negative) 04/20/21 Unknown Urine Ketones Tr mg/dL (Negative) 04/20/21 Unknown Urine Blood Mod (Negative) 04/20/21 Unknown Urine Nitrite Neg (Negative) 04/20/21 Unknown Urine Bilirubin Neg (Negative) 04/20/21 Unknown Urine Urobilinogen < 2.0 mg/dL (<2.0) 04/20/21 Unknown Ur Leukocyte Esterase Neg (Negative) 04/20/21 Unknown Urine WBC (Auto) 3.0 /HPF (0.0-6.0) 04/20/21 Unknown Urine RBC (Auto) 1.0 /HPF (0.0-6.0) 04/20/21 Unknown Urine Mucus Few /HPF 04/20/21 Unknown Urine Osmolality 446 Mosm/kg 04/21/21 08:01 Urine Creatinine 44.3 mg/dL (0.1-20.0) H 04/21/21 08:01 Urine Sodium 71 mmol/L 04/21/21 08:01 Urine Total Protein 12 mg/dL (5-11.8) H 04/21/21 08:01 Plasma/Serum Alcohol < 0.01 % (0-0.07) 04/20/21 17:10 Coronavirus (PCR) Negative (Negative) 04/21/21 Unknown Microbiology: Microbiology 04/21/21 14:04 Peripheral/Venous Blood Culture - Preliminary NO GROWTH AFTER 72 HOURS 04/21/21 14:04 Peripheral/Venous Blood Culture - Preliminary NO GROWTH AFTER 72 HOURS Luther/IV: Voiding Method Indwelling Catheter Active Medications - Current Medications Current Medications: Generic Name Dose Route Start Last Admin Trade Name Freq PRN Reason Stop Dose Admin Acetaminophen 650 mg 04/20/21 21:31 Acetaminophen 325 Mg Tab PO Q4H PRN Pain MILD(1-3)/Fever >100.5/TURCIOS Albuterol 2.5 mg 04/22/21 14:49 04/23/21 15:18 Albuterol 2.5 Mg/3 Ml Nebu IH 2.5 mg Q4HRT PRN Administration Shortness Of Breath Lipase/Protease/Amylase 1 each 04/22/21 16:30 Lipase 10,500/Protease 25,000/Amylase 43,750 (Units) Dr Vasquez FEEDTUBE PRN PRN For Clogged Feeding Tube Dextrose 50 ml 04/24/21 11:36 Dextrose 50% In Water (25gm) 50 Ml Syringe IV Q30MIN PRN Hypoglycemia Protocol Famotidine 20 mg 04/25/21 10:00 04/25/21 09:24 Famotidine 20 Mg Tab FEEDTUBE 20 mg DAILY AZIZA Administration Hydralazine HCl 10 mg 04/24/21 21:22 Hydralazine 20 Mg/1 Ml Inj IV Q4HR PRN elevated BP Dextrose 1,000 mls @ 125 mls/hr 04/21/21 02:00 04/25/21 08:50 D5w IV 125 mls/hr DIRECT AZIZA Administration Insulin Human Regular 100 100 mls @ 1 mls/hr 04/24/21 12:00 04/25/21 12:32 units/ Sodium Chloride IV 8 units/hr TITR AZIZA 8 mls/hr Titration Protocol 1 UNITS/HR Metoclopramide HCl 5 mg 04/20/21 21:31 Metoclopramide 10 Mg/2 Ml Inj IV Q6H PRN Nausea And Vomiting Morphine Sulfate 2 mg 04/20/21 21:31 04/24/21 23:20 Morphine 2 Mg/1 Ml Inj IV 2 mg Q4H PRN Administration Pain, Moderate (4-6) Ondansetron HCl 4 mg 04/20/21 21:31 Ondansetron 4 Mg/2 Ml Inj IV Q8H PRN Nausea And Vomiting Simple Syrup 15 ml 04/22/21 16:30 Simple Syrup 15 Ml FEEDTUBE PRN PRN Hypoglycemia Simple Syrup 30 ml 04/22/21 16:30 Simple Syrup 15 Ml FEEDTUBE PRN PRN Hypoglycemia Sodium Bicarbonate 325 mg 04/22/21 16:30 Sodium Bicarbonate 325 Mg Tab FEEDTUBE PRN PRN For Clogged Feeding Tube Sodium Chloride 10 ml 04/20/21 22:00 04/25/21 09:24 Sodium Chloride 0.9% 10 Ml Flush Syringe IV 10 ml BID AZIZA Administration Sodium Chloride 10 ml 04/20/21 21:31 Sodium Chloride 0.9% 10 Ml Flush Syringe IV PRN PRN LINE FLUSH Nutrition/Malnutrition Assess - Dietary Evaluation Nutrition/Malnutrition Findings: Nutrition Notes Start: 04/21/21 12:15 Freq: Status: Active Protocol: Document 04/22/21 15:29 JOSE (Rec: 04/22/21 15:49 JOSE [id number]) Nutrition Notes Initial or Follow up Brief Note Current Diet TF-Nepro w/CARBSTEADY @ 27 ml/ hr (since D 04/22). Weight change and time frame No body weight change reported . Subjective/Other Information RD consult for write/manage TF . TF-Nepro Ordered. Percent of energy/protein needs met: Prescribed Nepro w/CARBSTEADY @ 27 ml/hr provides for energy /protein needs (1,146 Kcal/52 g) during LOS, 100% Kcal; 100% AA. #1 Nutrition Diagnosis Inadequate oral intake Etiology Acute Metabolic Encephalopathy , Pt is unresponsive. As Evidenced by Signs and Symptoms MD request for write/manage TF . Nutrition Intervention Change Diet Order: d/c. Nutrition Support: Start Nepro w/CARBSTEADY @ 27 ml/hr. Flush: 110 ml water Q 4 hr. Kcal 1,146 Protein (gm) 52 Carbohydrates (gm) 103 Fat (gm) 61 Fluid (mL) 463 Fiber (gm) 8 % RDI: 100% Kcal; 100% AA. Goal #1 Provide at least 75% of energy /protein needs through Enteral Feeding during LOS. Follow-Up By: 04/25/21 Additional Comments Continue monitoring TF tolerance and BM.
--- NOTE | 2021-04-25 13:56 | Consultation ---
History of Present Illness Consult date: 04/25/21 Chief complaint: Encephalopathy History of present illness: Consulted for AMS , Head CT was done showing Increased Ventricular Size. There are no seizure reported . There is moaning reported . Past History Past Medical History: other (Dementia, GERD) Past Surgical History: Other (unable to obtain.) Social history: other (unable to obtain) Family history: other (unable to obtain) Medications and Allergies Allergies Allergy/AdvReac Type Severity Reaction Status Date / Time No Known Allergies Allergy Unverified 04/20/21 14:35 Active Meds: Active Medications Acetaminophen (Acetaminophen 325 Mg Tab) 650 mg PO Q4H PRN PRN Reason: Pain MILD(1-3)/Fever >100.5/TURCIOS Albuterol (Albuterol 2.5 Mg/3 Ml Nebu) 2.5 mg IH Q4HRT PRN PRN Reason: Shortness Of Breath Last Admin: 04/23/21 15:18 Dose: 2.5 mg Documented by: Lipase/Protease/Amylase (Lipase 10,500/Protease 25,000/Amylase 43,750 (Units) Dr Vasquez) 1 each FEEDTUBE PRN PRN PRN Reason: For Clogged Feeding Tube Dextrose (Dextrose 50% In Water (25gm) 50 Ml Syringe) 50 ml IV Q30MIN PRN; Protocol PRN Reason: Hypoglycemia Famotidine (Famotidine 20 Mg Tab) 20 mg FEEDTUBE DAILY AZIZA Last Admin: 04/25/21 09:24 Dose: 20 mg Documented by: Hydralazine HCl (Hydralazine 20 Mg/1 Ml Inj) 10 mg IV Q4HR PRN PRN Reason: elevated BP Insulin Human Regular 100 (units/ Sodium Chloride) 100 mls @ 1 mls/hr IV TITR AZIZA; Protocol Last Titration: 04/25/21 12:32 Dose: 8 units/hr, 8 mls/hr Documented by: Metoclopramide HCl (Metoclopramide 10 Mg/2 Ml Inj) 5 mg IV Q6H PRN PRN Reason: Nausea And Vomiting Morphine Sulfate (Morphine 2 Mg/1 Ml Inj) 2 mg IV Q4H PRN PRN Reason: Pain, Moderate (4-6) Last Admin: 04/24/21 23:20 Dose: 2 mg Documented by: Ondansetron HCl (Ondansetron 4 Mg/2 Ml Inj) 4 mg IV Q8H PRN PRN Reason: Nausea And Vomiting Simple Syrup (Simple Syrup 15 Ml) 15 ml FEEDTUBE PRN PRN PRN Reason: Hypoglycemia Simple Syrup (Simple Syrup 15 Ml) 30 ml FEEDTUBE PRN PRN PRN Reason: Hypoglycemia Sodium Bicarbonate (Sodium Bicarbonate 325 Mg Tab) 325 mg FEEDTUBE PRN PRN PRN Reason: For Clogged Feeding Tube Sodium Chloride (Sodium Chloride 0.9% 10 Ml Flush Syringe) 10 ml IV BID AZIZA Last Admin: 04/25/21 09:24 Dose: 10 ml Documented by: Sodium Chloride (Sodium Chloride 0.9% 10 Ml Flush Syringe) 10 ml IV PRN PRN PRN Reason: LINE FLUSH Physical Examination - Vital Signs Vital Signs: Vital Signs Pulse Resp BP Pulse Ox 85 19 107/35 94 04/20/21 14:31 04/20/21 14:31 04/20/21 14:31 04/20/21 14:31 - Physical Exam Narrative exam: The patient is no verbal , The patient is on O2 mask, with stimulation there is very minimal movement . On verbal commands some mid line commands are ? followed . Results - Laboratory Findings CBC and BMP: 04/25/21 05:45 04/25/21 08:11 Abnormal Lab Findings: Abnormal Labs 04/20/21 04/20/21 04/20/21 17:10 17:10 17:10 WBC 17.4 H RBC 5.19 H Hct 46.8 H MCH 27 L RDW 17.2 H Plt Count Seg Neuts % (Manual) 98.0 H Lymphocytes % (Manual) 2.0 L Nucleated RBC % 1.0 H Seg Neutrophils # Man 17.1 H Lymphocytes # (Manual) 0.3 L ABG pH ABG pO2 ABG O2 Saturation ABG Base Excess ABG Hemoglobin Oxyhemoglobin Sodium 173 H* Potassium Chloride 132.9 H Carbon Dioxide 17 L BUN 120 H Creatinine 4.2 H Glucose 762 H* POC Glucose Hemoglobin A1c Lactic Acid Calcium Magnesium 3.80 H Transferrin AST 72 H ALT 63 H Alkaline Phosphatase 148 H Total Creatine Kinase 3697 H CK-MB (CK-2) 36.0 H Total Protein Albumin 2.2 L TSH Urine Creatinine Urine Total Protein 04/20/21 04/20/21 04/20/21 17:10 17:10 18:55 WBC RBC Hct MCH RDW Plt Count Seg Neuts % (Manual) Lymphocytes % (Manual) Nucleated RBC % Seg Neutrophils # Man Lymphocytes # (Manual) ABG pH ABG pO2 ABG O2 Saturation ABG Base Excess ABG Hemoglobin Oxyhemoglobin Sodium Potassium Chloride Carbon Dioxide BUN Creatinine Glucose POC Glucose 574 H Hemoglobin A1c Lactic Acid 2.60 H* Calcium Magnesium Transferrin AST ALT Alkaline Phosphatase Total Creatine Kinase CK-MB (CK-2) Total Protein Albumin TSH 6.040 H Urine Creatinine Urine Total Protein 04/20/21 04/20/21 04/21/21 22:58 22:58 00:14 WBC RBC Hct MCH RDW Plt Count Seg Neuts % (Manual) Lymphocytes % (Manual) Nucleated RBC % Seg Neutrophils # Man Lymphocytes # (Manual) ABG pH ABG pO2 ABG O2 Saturation ABG Base Excess ABG Hemoglobin Oxyhemoglobin Sodium 172 H* Potassium 3.2 L Chloride 134.2 H Carbon Dioxide 17 L BUN 112 H Creatinine 3.8 H Glucose 803 H* POC Glucose > 600 H Hemoglobin A1c Lactic Acid Calcium 8.3 L Magnesium 3.50 H Transferrin AST ALT Alkaline Phosphatase Total Creatine Kinase CK-MB (CK-2) Total Protein Albumin TSH Urine Creatinine Urine Total Protein 04/21/21 04/21/21 04/21/21 00:22 02:01 03:11 WBC RBC Hct MCH RDW Plt Count Seg Neuts % (Manual) Lymphocytes % (Manual) Nucleated RBC % Seg Neutrophils # Man Lymphocytes # (Manual) ABG pH ABG pO2 ABG O2 Saturation ABG Base Excess ABG Hemoglobin Oxyhemoglobin Sodium 176 H* 175 H* Potassium 2.9 L* 3.0 L Chloride 139.9 H 136.2 H Carbon Dioxide 17 L 19 L BUN 113 H 112 H Creatinine 3.9 H 3.6 H Glucose 729 H* 582 H* POC Glucose 404 H Hemoglobin A1c Lactic Acid Calcium Magnesium Transferrin AST ALT Alkaline Phosphatase Total Creatine Kinase CK-MB (CK-2) Total Protein Albumin TSH Urine Creatinine Urine Total Protein 04/21/21 04/21/21 04/21/21 03:20 03:41 03:41 WBC 14.1 H RBC Hct MCH 27 L RDW 16.8 H Plt Count 114 L Seg Neuts % (Manual) 97.0 H Lymphocytes % (Manual) 3.0 L Nucleated RBC % 1.0 H Seg Neutrophils # Man 13.7 H Lymphocytes # (Manual) 0.4 L ABG pH ABG pO2 52.3 L ABG O2 Saturation 84.5 L ABG Base Excess -2.9 L ABG Hemoglobin Oxyhemoglobin 82.9 L Sodium 179 H* Potassium 2.9 L* Chloride 138.2 H Carbon Dioxide 20 L BUN 111 H Creatinine 3.7 H Glucose 465 H POC Glucose Hemoglobin A1c Lactic Acid Calcium Magnesium Transferrin AST 73 H ALT 61 H Alkaline Phosphatase 144 H Total Creatine Kinase CK-MB (CK-2) Total Protein Albumin 2.5 L TSH Urine Creatinine Urine Total Protein 04/21/21 04/21/21 04/21/21 04:24 05:45 06:47 WBC RBC Hct MCH RDW Plt Count Seg Neuts % (Manual) Lymphocytes % (Manual) Nucleated RBC % Seg Neutrophils # Man Lymphocytes # (Manual) ABG pH ABG pO2 ABG O2 Saturation ABG Base Excess ABG Hemoglobin Oxyhemoglobin Sodium Potassium Chloride Carbon Dioxide BUN Creatinine Glucose POC Glucose 353 H 280 H 260 H Hemoglobin A1c Lactic Acid Calcium Magnesium Transferrin AST ALT Alkaline Phosphatase Total Creatine Kinase CK-MB (CK-2) Total Protein Albumin TSH Urine Creatinine Urine Total Protein 04/21/21 04/21/21 04/21/21 08:01 11:11 12:51 WBC RBC Hct MCH RDW Plt Count Seg Neuts % (Manual) Lymphocytes % (Manual) Nucleated RBC % Seg Neutrophils # Man Lymphocytes # (Manual) ABG pH ABG pO2 ABG O2 Saturation ABG Base Excess ABG Hemoglobin Oxyhemoglobin Sodium Potassium Chloride Carbon Dioxide BUN Creatinine Glucose POC Glucose 68 L 146 H Hemoglobin A1c Lactic Acid Calcium Magnesium Transferrin AST ALT Alkaline Phosphatase Total Creatine Kinase CK-MB (CK-2) Total Protein Albumin TSH Urine Creatinine 44.3 H Urine Total Protein 12 H 04/21/21 04/21/21 04/21/21 14:40 15:47 16:25 WBC RBC Hct MCH RDW Plt Count Seg Neuts % (Manual) Lymphocytes % (Manual) Nucleated RBC % Seg Neutrophils # Man Lymphocytes # (Manual) ABG pH 7.486 H ABG pO2 168.1 H ABG O2 Saturation 99.1 H ABG Base Excess ABG Hemoglobin 8.9 L Oxyhemoglobin Sodium Potassium Chloride Carbon Dioxide BUN Creatinine Glucose POC Glucose 186 H 172 H Hemoglobin A1c Lactic Acid Calcium Magnesium Transferrin AST ALT Alkaline Phosphatase Total Creatine Kinase CK-MB (CK-2) Total Protein Albumin TSH Urine Creatinine Urine Total Protein 04/21/21 04/21/21 04/21/21 17:57 18:49 19:10 WBC RBC Hct MCH RDW Plt Count Seg Neuts % (Manual) Lymphocytes % (Manual) Nucleated RBC % Seg Neutrophils # Man Lymphocytes # (Manual) ABG pH ABG pO2 ABG O2 Saturation ABG Base Excess ABG Hemoglobin Oxyhemoglobin Sodium 174 H* Potassium 7.2 H* D Chloride 138.2 H Carbon Dioxide 21 L BUN 99 H Creatinine 4.0 H Glucose 157 H POC Glucose 143 H 126 H Hemoglobin A1c Lactic Acid Calcium Magnesium Transferrin AST 134 H ALT 71 H Alkaline Phosphatase 135 H Total Creatine Kinase 3504 H CK-MB (CK-2) Total Protein Albumin 2.2 L TSH Urine Creatinine Urine Total Protein 04/21/21 04/21/21 04/21/21 20:26 20:53 21:52 WBC RBC Hct MCH RDW Plt Count Seg Neuts % (Manual) Lymphocytes % (Manual) Nucleated RBC % Seg Neutrophils # Man Lymphocytes # (Manual) ABG pH ABG pO2 ABG O2 Saturation ABG Base Excess ABG Hemoglobin Oxyhemoglobin Sodium Potassium Chloride Carbon Dioxide BUN Creatinine Glucose POC Glucose 190 H 116 H 135 H Hemoglobin A1c Lactic Acid Calcium Magnesium Transferrin AST ALT Alkaline Phosphatase Total Creatine Kinase CK-MB (CK-2) Total Protein Albumin TSH Urine Creatinine Urine Total Protein 04/21/21 04/21/21 04/22/21 22:55 23:00 00:01 WBC RBC Hct MCH RDW Plt Count Seg Neuts % (Manual) Lymphocytes % (Manual) Nucleated RBC % Seg Neutrophils # Man Lymphocytes # (Manual) ABG pH ABG pO2 ABG O2 Saturation ABG Base Excess ABG Hemoglobin Oxyhemoglobin Sodium 176 H* Potassium Chloride 140.0 H Carbon Dioxide 20 L BUN 98 H Creatinine 3.9 H Glucose 206 H POC Glucose 158 H 182 H Hemoglobin A1c Lactic Acid Calcium Magnesium Transferrin AST ALT Alkaline Phosphatase Total Creatine Kinase 3240 H CK-MB (CK-2) Total Protein Albumin TSH Urine Creatinine Urine Total Protein 04/22/21 04/22/21 04/22/21 00:39 00:58 01:04 WBC RBC Hct MCH RDW Plt Count Seg Neuts % (Manual) Lymphocytes % (Manual) Nucleated RBC % Seg Neutrophils # Man Lymphocytes # (Manual) ABG pH ABG pO2 ABG O2 Saturation ABG Base Excess ABG Hemoglobin Oxyhemoglobin Sodium 171 H* Potassium Chloride Carbon Dioxide BUN Creatinine Glucose POC Glucose 176 H 143 H Hemoglobin A1c Lactic Acid Calcium Magnesium Transferrin AST ALT Alkaline Phosphatase Total Creatine Kinase CK-MB (CK-2) Total Protein Albumin TSH Urine Creatinine Urine Total Protein 04/22/21 04/22/21 04/22/21 04:52 06:07 06:09 WBC 11.2 H RBC Hct 44.3 H MCH 27 L RDW 17.1 H Plt Count 86 L Seg Neuts % (Manual) 86.0 H Lymphocytes % (Manual) 13.0 L Nucleated RBC % Seg Neutrophils # Man 9.6 H Lymphocytes # (Manual) ABG pH ABG pO2 ABG O2 Saturation ABG Base Excess ABG Hemoglobin Oxyhemoglobin Sodium Potassium Chloride Carbon Dioxide BUN Creatinine Glucose POC Glucose 206 H 163 H Hemoglobin A1c Lactic Acid Calcium Magnesium Transferrin AST ALT Alkaline Phosphatase Total Creatine Kinase CK-MB (CK-2) Total Protein Albumin TSH Urine Creatinine Urine Total Protein 04/22/21 04/22/21 04/22/21 07:18 08:59 08:59 WBC RBC Hct MCH RDW Plt Count Seg Neuts % (Manual) Lymphocytes % (Manual) Nucleated RBC % Seg Neutrophils # Man Lymphocytes # (Manual) ABG pH ABG pO2 ABG O2 Saturation ABG Base Excess ABG Hemoglobin Oxyhemoglobin Sodium 169 H* Potassium 3.5 L Chloride 134.5 H Carbon Dioxide 20 L BUN 95 H Creatinine 3.6 H Glucose 151 H POC Glucose 158 H Hemoglobin A1c Lactic Acid Calcium Magnesium Transferrin AST 121 H ALT 75 H Alkaline Phosphatase 137 H Total Creatine Kinase 3105 H CK-MB (CK-2) Total Protein 6.0 L Albumin 2.1 L TSH Urine Creatinine Urine Total Protein 04/22/21 04/22/21 04/22/21 09:44 10:24 12:20 WBC RBC Hct MCH RDW Plt Count Seg Neuts % (Manual) Lymphocytes % (Manual) Nucleated RBC % Seg Neutrophils # Man Lymphocytes # (Manual) ABG pH ABG pO2 ABG O2 Saturation ABG Base Excess ABG Hemoglobin Oxyhemoglobin Sodium Potassium Chloride Carbon Dioxide BUN Creatinine Glucose POC Glucose 107 H 131 H Hemoglobin A1c Lactic Acid Calcium Magnesium 2.80 H Transferrin AST ALT Alkaline Phosphatase Total Creatine Kinase CK-MB (CK-2) Total Protein Albumin TSH Urine Creatinine Urine Total Protein 12/31/21 12/31/21 12/31/21 13:19 14:16 15:22 WBC RBC Hct MCH RDW Plt Count Seg Neuts % (Manual) Lymphocytes % (Manual) Nucleated RBC % Seg Neutrophils # Man Lymphocytes # (Manual) ABG pH ABG pO2 ABG O2 Saturation ABG Base Excess ABG Hemoglobin Oxyhemoglobin Sodium Potassium Chloride Carbon Dioxide BUN Creatinine Glucose POC Glucose 147 H 154 H 136 H Hemoglobin A1c Lactic Acid Calcium Magnesium Transferrin AST ALT Alkaline Phosphatase Total Creatine Kinase CK-MB (CK-2) Total Protein Albumin TSH Urine Creatinine Urine Total Protein 04/22/21 04/22/21 04/22/21 15:55 15:55 16:22 WBC RBC Hct MCH RDW Plt Count Seg Neuts % (Manual) Lymphocytes % (Manual) Nucleated RBC % Seg Neutrophils # Man Lymphocytes # (Manual) ABG pH ABG pO2 ABG O2 Saturation ABG Base Excess ABG Hemoglobin Oxyhemoglobin Sodium 169 H* Potassium Chloride 133.5 H Carbon Dioxide 19 L BUN 94 H Creatinine 3.8 H Glucose 150 H POC Glucose 140 H Hemoglobin A1c 17.1 H Lactic Acid Calcium Magnesium Transferrin AST ALT Alkaline Phosphatase Total Creatine Kinase CK-MB (CK-2) Total Protein Albumin TSH Urine Creatinine Urine Total Protein 04/22/21 04/22/21 04/22/21 18:11 18:26 23:19 WBC RBC Hct MCH RDW Plt Count Seg Neuts % (Manual) Lymphocytes % (Manual) Nucleated RBC % Seg Neutrophils # Man Lymphocytes # (Manual) ABG pH ABG pO2 ABG O2 Saturation ABG Base Excess ABG Hemoglobin Oxyhemoglobin Sodium Potassium Chloride Carbon Dioxide BUN Creatinine Glucose POC Glucose 146 H 188 H Hemoglobin A1c Lactic Acid Calcium Magnesium Transferrin AST ALT Alkaline Phosphatase Total Creatine Kinase 2497 H CK-MB (CK-2) Total Protein Albumin TSH Urine Creatinine Urine Total Protein 04/23/21 04/23/21 04/23/21 00:27 05:23 07:50 WBC RBC Hct MCH RDW Plt Count Seg Neuts % (Manual) Lymphocytes % (Manual) Nucleated RBC % Seg Neutrophils # Man Lymphocytes # (Manual) ABG pH ABG pO2 ABG O2 Saturation ABG Base Excess ABG Hemoglobin Oxyhemoglobin Sodium 162 H* Potassium Chloride Carbon Dioxide BUN Creatinine Glucose POC Glucose 212 H 239 H Hemoglobin A1c Lactic Acid Calcium Magnesium Transferrin AST ALT Alkaline Phosphatase Total Creatine Kinase CK-MB (CK-2) Total Protein Albumin TSH Urine Creatinine Urine Total Protein 04/23/21 04/23/2104/23/22 08:13 08:13 08:13 WBC 11.9 H RBC Hct MCH 26 L RDW 16.5 H Plt Count 72 L Seg Neuts % (Manual) 80.0 H Lymphocytes % (Manual) 5.0 L Nucleated RBC % Seg Neutrophils # Man 9.5 H Lymphocytes # (Manual) 0.6 L ABG pH ABG pO2 ABG O2 Saturation ABG Base Excess ABG Hemoglobin Oxyhemoglobin Sodium 164 H* Potassium Chloride 128.0 H Carbon Dioxide 21 L BUN 93 H Creatinine 3.8 H Glucose 293 H POC Glucose Hemoglobin A1c Lactic Acid Calcium Magnesium Transferrin AST 99 H ALT 70 H Alkaline Phosphatase 147 H Total Creatine Kinase 1803 H CK-MB (CK-2) Total Protein 6.1 L Albumin 2.0 L TSH Urine Creatinine Urine Total Protein 04/23/21 04/23/21 04/23/21 12:06 17:35 18:17 WBC RBC Hct MCH RDW Plt Count Seg Neuts % (Manual) Lymphocytes % (Manual) Nucleated RBC % Seg Neutrophils # Man Lymphocytes # (Manual) ABG pH ABG pO2 ABG O2 Saturation ABG Base Excess ABG Hemoglobin Oxyhemoglobin Sodium 160 H Potassium Chloride Carbon Dioxide BUN Creatinine Glucose POC Glucose 311 H 370 H Hemoglobin A1c Lactic Acid Calcium Magnesium Transferrin AST ALT Alkaline Phosphatase Total Creatine Kinase CK-MB (CK-2) Total Protein Albumin TSH Urine Creatinine Urine Total Protein 04/24/21 04/24/21 04/24/21 02:13 06:00 06:00 WBC RBC Hct MCH 27 L RDW 17.0 H Plt Count 58 L Seg Neuts % (Manual) Lymphocytes % (Manual) 2.0 L Nucleated RBC % Seg Neutrophils # Man 8.9 H Lymphocytes # (Manual) 0.2 L ABG pH ABG pO2 ABG O2 Saturation ABG Base Excess ABG Hemoglobin Oxyhemoglobin Sodium 160 H Potassium Chloride Carbon Dioxide BUN Creatinine Glucose POC Glucose Hemoglobin A1c Lactic Acid Calcium Magnesium 2.90 H Transferrin AST ALT Alkaline Phosphatase Total Creatine Kinase CK-MB (CK-2) Total Protein Albumin TSH Urine Creatinine Urine Total Protein 04/24/21 04/24/21 04/24/21 07:46 08:15 11:34 WBC RBC Hct MCH RDW Plt Count Seg Neuts % (Manual) Lymphocytes % (Manual) Nucleated RBC % Seg Neutrophils # Man Lymphocytes # (Manual) ABG pH ABG pO2 ABG O2 Saturation ABG Base Excess ABG Hemoglobin Oxyhemoglobin Sodium 159 H Potassium Chloride 125.6 H Carbon Dioxide 19 L BUN 94 H Creatinine 3.7 H Glucose 514 H* POC Glucose 395 H 422 H Hemoglobin A1c Lactic Acid Calcium Magnesium Transferrin AST ALT 61 H Alkaline Phosphatase 155 H Total Creatine Kinase CK-MB (CK-2) Total Protein 6.1 L Albumin 1.5 L TSH Urine Creatinine Urine Total Protein 04/24/21 04/24/21 04/24/21 13:11 14:01 15:03 WBC RBC Hct MCH RDW Plt Count Seg Neuts % (Manual) Lymphocytes % (Manual) Nucleated RBC % Seg Neutrophils # Man Lymphocytes # (Manual) ABG pH ABG pO2 ABG O2 Saturation ABG Base Excess ABG Hemoglobin Oxyhemoglobin Sodium Potassium Chloride Carbon Dioxide BUN Creatinine Glucose POC Glucose 384 H 423 H 418 H Hemoglobin A1c Lactic Acid Calcium Magnesium Transferrin AST ALT Alkaline Phosphatase Total Creatine Kinase CK-MB (CK-2) Total Protein Albumin TSH Urine Creatinine Urine Total Protein 04/24/21 04/24/21 04/24/21 17:29 18:28 19:41 WBC RBC Hct MCH RDW Plt Count Seg Neuts % (Manual) Lymphocytes % (Manual) Nucleated RBC % Seg Neutrophils # Man Lymphocytes # (Manual) ABG pH ABG pO2 ABG O2 Saturation ABG Base Excess ABG Hemoglobin Oxyhemoglobin Sodium Potassium Chloride Carbon Dioxide BUN Creatinine Glucose POC Glucose 335 H 321 H Hemoglobin A1c Lactic Acid Calcium Magnesium Transferrin 112 L AST ALT Alkaline Phosphatase Total Creatine Kinase CK-MB (CK-2) Total Protein Albumin TSH Urine Creatinine Urine Total Protein 04/24/21 04/25/21 04/25/21 22:33 01:28 02:28 WBC RBC Hct MCH RDW Plt Count Seg Neuts % (Manual) Lymphocytes % (Manual) Nucleated RBC % Seg Neutrophils # Man Lymphocytes # (Manual) ABG pH ABG pO2 ABG O2 Saturation ABG Base Excess ABG Hemoglobin Oxyhemoglobin Sodium Potassium Chloride Carbon Dioxide BUN Creatinine Glucose POC Glucose 349 H 283 H 247 H Hemoglobin A1c Lactic Acid Calcium Magnesium Transferrin AST ALT Alkaline Phosphatase Total Creatine Kinase CK-MB (CK-2) Total Protein Albumin TSH Urine Creatinine Urine Total Protein 04/25/21 04/25/21 04/25/21 03:25 04:22 05:40 WBC RBC Hct MCH RDW Plt Count Seg Neuts % (Manual) Lymphocytes % (Manual) Nucleated RBC % Seg Neutrophils # Man Lymphocytes # (Manual) ABG pH ABG pO2 ABG O2 Saturation ABG Base Excess ABG Hemoglobin Oxyhemoglobin Sodium Potassium Chloride Carbon Dioxide BUN Creatinine Glucose POC Glucose 196 H 207 H 204 H Hemoglobin A1c Lactic Acid Calcium Magnesium Transferrin AST ALT Alkaline Phosphatase Total Creatine Kinase CK-MB (CK-2) Total Protein Albumin TSH Urine Creatinine Urine Total Protein 04/25/21 04/25/21 04/25/21 05:45 06:43 07:37 WBC RBC Hct MCH 27 L RDW 17.0 H Plt Count 64 L Seg Neuts % (Manual) 84.0 H Lymphocytes % (Manual) 6.0 L Nucleated RBC % 1.0 H Seg Neutrophils # Man Lymphocytes # (Manual) 0.4 L ABG pH ABG pO2 ABG O2 Saturation ABG Base Excess ABG Hemoglobin Oxyhemoglobin Sodium Potassium Chloride Carbon Dioxide BUN Creatinine Glucose POC Glucose 238 H 201 H Hemoglobin A1c Lactic Acid Calcium Magnesium Transferrin AST ALT Alkaline Phosphatase Total Creatine Kinase CK-MB (CK-2) Total Protein Albumin TSH Urine Creatinine Urine Total Protein 04/25/21 04/25/21 04/25/21 08:11 08:11 08:41 WBC RBC Hct MCH RDW Plt Count Seg Neuts % (Manual) Lymphocytes % (Manual) Nucleated RBC % Seg Neutrophils # Man Lymphocytes # (Manual) ABG pH ABG pO2 ABG O2 Saturation ABG Base Excess ABG Hemoglobin Oxyhemoglobin Sodium 148 H D Potassium Chloride 115.7 H Carbon Dioxide 21 L BUN 83 H Creatinine 3.6 H Glucose 247 H POC Glucose 220 H Hemoglobin A1c Lactic Acid Calcium Magnesium 2.50 H Transferrin AST 63 H ALT 62 H Alkaline Phosphatase 143 H Total Creatine Kinase CK-MB (CK-2) Total Protein 5.4 L Albumin 1.4 L TSH Urine Creatinine Urine Total Protein 04/25/21 04/25/21 04/25/21 09:22 10:31 11:44 WBC RBC Hct MCH RDW Plt Count Seg Neuts % (Manual) Lymphocytes % (Manual) Nucleated RBC % Seg Neutrophils # Man Lymphocytes # (Manual) ABG pH ABG pO2 ABG O2 Saturation ABG Base Excess ABG Hemoglobin Oxyhemoglobin Sodium Potassium Chloride Carbon Dioxide BUN Creatinine Glucose POC Glucose 228 H 215 H 191 H Hemoglobin A1c Lactic Acid Calcium Magnesium Transferrin AST ALT Alkaline Phosphatase Total Creatine Kinase CK-MB (CK-2) Total Protein Albumin TSH Urine Creatinine Urine Total Protein 04/25/21 04/25/21 12:23 13:48 WBC RBC Hct MCH RDW Plt Count Seg Neuts % (Manual) Lymphocytes % (Manual) Nucleated RBC % Seg Neutrophils # Man Lymphocytes # (Manual) ABG pH ABG pO2 ABG O2 Saturation ABG Base Excess ABG Hemoglobin Oxyhemoglobin Sodium Potassium Chloride Carbon Dioxide BUN Creatinine Glucose POC Glucose 229 H 177 H Hemoglobin A1c Lactic Acid Calcium Magnesium Transferrin AST ALT Alkaline Phosphatase Total Creatine Kinase CK-MB (CK-2) Total Protein Albumin TSH Urine Creatinine Urine Total Protein Assessment and Plan 1. Encephalopathy (multifactorial - neurological recovery will depend upon underlying metabolic and infective issues management ). 2. Agree with Neurosurgery . 3. EEG is recommended . Follow up as needed . Neurological Recovery is Guarded . Dr. Fofana
[2021-04-25] MEDS ORDERED: LIPASE 10,500/PROTEASE 25,000/AMYLASE 43,750 (UNITS) DR CAP FEEDTUBE PRN (14:13)
[2021-04-25] MEDS ORDERED: SIMPLE SYRUP 15 ML FEEDTUBE PRN ×2 (14:13)
[2021-04-25] MEDS: FREE WATER PO SCH ×3 (14:26→22:07)
[2021-04-25] MEDS ORDERED: INSULIN NPH, HUMAN 100 UNIT/1 ML SUB-Q SCH ×2 (15:00→17:00)
--- NOTE | 2021-04-25 16:28 | Progress Note ---
Assessment and Plan (1) Acute metabolic encephalopathy (2) Diabetic hyperosmolar non-ketotic state 3) SYED (acute kidney injury) (4) Dehydration (5) Hypernatremia (6) Rhabdomyolysis (7) Hypernatremia 8) GERD (gastroesophageal reflux disease) (9) Metabolic acidosis (10) Leukocytosis Na is trending down, cont D5W Cr is stable, BUN is improving, good UOP UA bland renally dose meds Strict I&O In ICU Subjective Date of service: 04/25/21 Principal diagnosis: Acute respiratory failure Interval history: does not answer questions, no family at bedside Objective - Vital Signs Vital signs: Vital Signs - 12hr 04/25/21 04/25/21 04/25/21 04:30 04:45 05:00 Temperature Pulse Rate 102 H 105 H 99 H Pulse Rate [ Right Radial] Respiratory 24 25 H 24 Rate Blood Pressure 119/61 119/61 102/60 O2 Sat by Pulse 95 95 94 Oximetry 04/25/21 04/25/21 04/25/21 05:15 05:30 05:45 Temperature Pulse Rate 101 H 108 H 102 H Pulse Rate [ Right Radial] Respiratory 25 H 31 H 24 Rate Blood Pressure 102/60 106/70 106/70 O2 Sat by Pulse 96 95 95 Oximetry 04/25/21 04/25/21 04/25/21 06:00 06:15 06:30 Temperature Pulse Rate 96 H 103 H 100 H Pulse Rate [ Right Radial] Respiratory 24 31 H 22 Rate Blood Pressure 118/60 118/60 109/60 O2 Sat by Pulse 93 96 96 Oximetry 04/25/21 04/25/21 04/25/21 06:45 07:00 07:15 Temperature Pulse Rate 101 H 97 H 101 H Pulse Rate [ Right Radial] Respiratory 24 22 23 Rate Blood Pressure 109/60 100/58 100/58 O2 Sat by Pulse 95 96 96 Oximetry 04/25/21 04/25/21 04/25/21 07:31 07:45 08:00 Temperature 98 F Pulse Rate 105 H 100 H 100 H Pulse Rate [ 100 H Right Radial] Respiratory 26 H 27 H 25 H Rate Blood Pressure 105/60 105/60 123/65 O2 Sat by Pulse 95 95 95 Oximetry 04/25/21 04/25/21 04/25/21 08:15 08:30 08:45 Temperature Pulse Rate 103 H 100 H 107 H Pulse Rate [ Right Radial] Respiratory 27 H 26 H 30 H Rate Blood Pressure 123/65 122/68 122/68 O2 Sat by Pulse 95 94 93 Oximetry 04/25/21 04/25/21 04/25/21 09:00 09:15 09:30 Temperature Pulse Rate 105 H 105 H 98 H Pulse Rate [ Right Radial] Respiratory 26 H 27 H 27 H Rate Blood Pressure 128/68 128/68 121/66 O2 Sat by Pulse 93 94 95 Oximetry 04/25/21 04/25/21 04/25/21 09:45 10:00 10:15 Temperature Pulse Rate 100 H 101 H 103 H Pulse Rate [ Right Radial] Respiratory 24 31 H 29 H Rate Blood Pressure 121/66 139/64 139/64 O2 Sat by Pulse 93 94 94 Oximetry 04/25/21 04/25/21 04/25/21 10:30 10:45 11:01 Temperature Pulse Rate 102 H 107 H 102 H Pulse Rate [ Right Radial] Respiratory 30 H 31 H 28 H Rate Blood Pressure 143/64 143/64 111/60 O2 Sat by Pulse 94 94 93 Oximetry 04/25/21 04/25/21 04/25/21 11:15 11:30 11:45 Temperature Pulse Rate 91 H 94 H 96 H Pulse Rate [ Right Radial] Respiratory 24 23 26 H Rate Blood Pressure 111/60 135/58 135/58 O2 Sat by Pulse 93 94 95 Oximetry 04/25/21 04/25/21 04/25/21 12:00 12:15 12:30 Temperature 99.6 F Pulse Rate 97 H 93 H 99 H Pulse Rate [ 97 H Right Radial] Respiratory 24 23 28 H Rate Blood Pressure 127/62 127/62 148/65 O2 Sat by Pulse 94 95 96 Oximetry 04/25/21 04/25/21 04/25/21 12:45 13:00 13:15 Temperature Pulse Rate 91 H 98 H 96 H Pulse Rate [ Right Radial] Respiratory 23 29 H 29 H Rate Blood Pressure 148/65 123/64 123/64 O2 Sat by Pulse 95 95 95 Oximetry 04/25/21 04/25/21 04/25/21 13:30 13:45 14:00 Temperature Pulse Rate 100 H 98 H 94 H Pulse Rate [ Right Radial] Respiratory 27 H 32 H 23 Rate Blood Pressure 125/68 125/68 130/60 O2 Sat by Pulse 95 95 95 Oximetry 04/25/21 04/25/21 04/25/21 14:15 14:30 14:45 Temperature Pulse Rate 100 H 96 H 97 H Pulse Rate [ Right Radial] Respiratory 28 H 30 H 26 H Rate Blood Pressure 130/60 142/69 142/69 O2 Sat by Pulse 94 96 95 Oximetry 04/25/21 04/25/21 15:00 16:00 Temperature 98.8 F Pulse Rate 92 H Pulse Rate [ Right Radial] Respiratory 24 Rate Blood Pressure 119/62 O2 Sat by Pulse 95 Oximetry - General Appearance General appearance: well-developed, well-nourished EENT: ATNC, PERRL, mucous membranes dry Neck: no JVD Respiratory: Present: Clear to Ascultation Cardiology: regular, S1S2 Gastrointestinal: normoactive bowel sounds Integumentary: no rash, warm and dry Neurologic: other (does not follow commands) Musculoskeletal: other (no edema in BLE) - Lab 04/25/21 05:45 04/25/21 08:11 Most recent lab results ABG pH 7.486 pH Units (7.350-7.450) H 04/21/21 15:47 ABG pCO2 31.6 mm Hg 04/21/21 15:47 ABG pO2 168.1 mm Hg (80.0-90.0) H 04/21/21 15:47 ABG HCO3 23.3 mmol/L (20.0-26.0) 04/21/21 15:47 ABG O2 Saturation 99.1 % (95.0-99.0) H 04/21/21 15:47 Calcium 8.6 mg/dL (8.4-10.2) 04/25/21 08:11 Phosphorus 2.70 mg/dL (2.5-4.5) D 04/25/21 08:11 Magnesium 2.50 mg/dL (1.7-2.3) H 04/25/21 08:11 Urine Creatinine 44.3 mg/dL (0.1-20.0) H 04/21/21 08:01 Urine Sodium 71 mmol/L 04/21/21 08:01 Urine Total Protein 12 mg/dL (5-11.8) H 04/21/21 08:01 Medications & Allergies - Medications Allergies/Adverse Reactions: Allergies No Known Allergies Allergy (Unverified 04/20/21 14:35) Active Medications: Generic Name Dose Route Start Last Admin Trade Name Freq PRN Reason Stop Dose Admin Acetaminophen 650 mg 04/20/21 21:31 Acetaminophen 325 Mg Tab PO Q4H PRN Pain MILD(1-3)/Fever >100.5/TURCIOS Albuterol 2.5 mg 04/22/21 14:49 04/23/21 15:18 Albuterol 2.5 Mg/3 Ml Nebu IH 2.5 mg Q4HRT PRN Administration Shortness Of Breath Lipase/Protease/Amylase 1 each 04/22/21 16:30 Lipase 10,500/Protease 25,000/Amylase 43,750 (Units) Cap FEEDTUBE PRN PRN For Clogged Feeding Tube Lipase/Protease/Amylase 1 each 04/25/21 14:13 Lipase 10,500/Protease 25,000/Amylase 43,750 (Units) Cap FEEDTUBE PRN PRN For Clogged Feeding Tube Dextrose 50 ml 04/24/21 11:36 Dextrose 50% In Water (25gm) 50 Ml Syringe IV Q30MIN PRN Hypoglycemia Protocol Famotidine 20 mg 04/25/21 10:00 04/25/21 09:24 Famotidine 20 Mg Tab FEEDTUBE 20 mg DAILY AZIZA Administration Hydralazine HCl 10 mg 04/24/21 21:22 Hydralazine 20 Mg/1 Ml Inj IV Q4HR PRN elevated BP Insulin Human Regular 100 100 mls @ 1 mls/hr 04/24/21 12:00 04/25/21 15:30 units/ Sodium Chloride IV 04/25/21 16:30 0 units/hr TITR AZIZA 0 mls/hr Titration Protocol 1 UNITS/HR Insulin Human Lispro 0 unit 04/25/21 18:00 Insulin Lispro 100 Unit/Ml SUB-Q Q6HR AZIZA Protocol Insulin Human NPH 25 unit 04/25/21 17:00 Insulin Nph, Human 100 Unit/1 Ml SUB-Q BIDDIAB AZIZA Metoclopramide HCl 5 mg 04/20/21 21:31 Metoclopramide 10 Mg/2 Ml Inj IV Q6H PRN Nausea And Vomiting Morphine Sulfate 2 mg 04/20/21 21:31 04/24/21 23:20 Morphine 2 Mg/1 Ml Inj IV 2 mg Q4H PRN Administration Pain, Moderate (4-6) Ondansetron HCl 4 mg 04/20/21 21:31 Ondansetron 4 Mg/2 Ml Inj IV Q8H PRN Nausea And Vomiting Simple Syrup 15 ml 04/22/21 16:30 Simple Syrup 15 Ml FEEDTUBE PRN PRN Hypoglycemia Simple Syrup 30 ml 04/22/21 16:30 Simple Syrup 15 Ml FEEDTUBE PRN PRN Hypoglycemia Simple Syrup 15 ml 04/25/21 14:13 Simple Syrup 15 Ml FEEDTUBE PRN PRN Hypoglycemia Simple Syrup 30 ml 04/25/21 14:13 Simple Syrup 15 Ml FEEDTUBE PRN PRN Hypoglycemia Sodium Bicarbonate 325 mg 04/22/21 16:30 Sodium Bicarbonate 325 Mg Tab FEEDTUBE PRN PRN For Clogged Feeding Tube Sodium Bicarbonate 325 mg 04/25/21 14:13 Sodium Bicarbonate 325 Mg Tab FEEDTUBE PRN PRN For Clogged Feeding Tube Sodium Chloride 10 ml 04/20/21 22:00 04/25/21 09:24 Sodium Chloride 0.9% 10 Ml Flush Syringe IV 10 ml BID AZIZA Administration Sodium Chloride 10 ml 04/20/21 21:31 Sodium Chloride 0.9% 10 Ml Flush Syringe IV PRN PRN LINE FLUSH
[2021-04-25] MEDS ORDERED: DEXTROSE 5% IN WATER 1,000 ML IV SCH (17:00)
[2021-04-25] MEDS: INSULIN LISPRO 100 UNIT/ML SUB-Q SCH (18:06)
[2021-04-26] MEDS: INSULIN LISPRO 100 UNIT/ML SUB-Q SCH ×4 (00:35→17:53)
[2021-04-26] MEDS: FREE WATER PO SCH ×6 (02:00→22:26)
[2021-04-26] MEDS: MORPHINE 2 MG/1 ML INJ IV PRN ×2 (05:11→09:35)
[2021-04-26] MEDS: INSULIN NPH, HUMAN 100 UNIT/1 ML SUB-Q SCH ×2 (09:11→22:25)
[2021-04-26] MEDS: FAMOTIDINE 20 MG TAB FEEDTUBE SCH (09:11)
[2021-04-26 09:43] LABS: Hematocrit 34.3 % (30.3-42.9); Hemoglobin 10.5 gm/dl (10.1-14.3); Mean Corpuscular HGB Conc 31 % (30-34); Mean Corpuscular Volume 88 fl (79-97); Red Blood Count 3.89 M/mm3 (3.65-5.03); Red Cell Distribution Width 16.9 % (13.2-15.2)
[2021-04-26 09:44] LABS: Platelet Count 58 K/mm3 (140-440)
[2021-04-26 10:04] LABS: Albumin 1.7 g/dL (3.9-5); Calcium 8.1 mg/dL (8.4-10.2)
[2021-04-26 10:28] LABS: Anisocytosis 1+; Band Neutrophils # (Manual) 1.1 K/mm3; Poikilocytosis 1+; Total Cells Counted 100
[2021-04-26 10:29] LABS: Burr Cells 1+; Large Platelets Few; Platelet Estimate Cons
[2021-04-26] MEDS ORDERED: ETOMIDATE 20 MG/10 ML INJ IV ONE ×2 (11:06→11:07)
[2021-04-26] MEDS ORDERED: fentaNYL 100 MCG/2 ML INJ IV ONE (11:06)
[2021-04-26] MEDS ORDERED: fentaNYL 100 MCG/2 ML INJ ONE (11:07)
[2021-04-26] MEDS ORDERED: MIDAZOLAM 2 MG/2 ML INJ ONE (11:07)
--- NOTE | 2021-04-26 11:12 | Event Note ---
Date: 04/26/21 Spoke with DINESH this am to explain worsening respiratory status. He states that the patient would want to be intubated and that he would want the patient intubated. I also spoke with neurosurgery again to explain to them that I am not sure how acute this presentation is as the last time someone from family can verify that the patient was at her baseline visually was 6 months ago. They suggested MRI and we could do a large volume spinal tap (30cc's) to see if there is improvement in function, if not this is ruled out but will get MRI first.
--- NOTE | 2021-04-26 11:15 | Progress Note ---
Assessment and Plan 80 y/o female with altered mental state, severe electrolyte imbalance with presumptive acute renal failure and hypothermia. 04/26/21: WIll electively intubate and then obtain MRI. Pending MRI results, will likely order large volume spinal tap to assess if NPH is a factor or not. Guarded prognosis. Electrolytes are improving. 04/25/21: Continue to follow renal recs. Will reach out to POA either today or tomorrow for further updates. Follow up renal recs. Monitor electrolytes and renal function. Guarded prognosis. 1. Neuro-reached out to neuro surgery, placed consult in regards to CT findings 2. Renal-appreciate help and recs, will follow IV hydration recommendations 3. Blood cultures. Urine was negative 4. Jorge Hugger for temp Guarded prognosis CCT 31 minutes. Subjective Date of service: 04/26/21 Principal diagnosis: Acute respiratory failure Interval history: Worsening respiratory state. Placed on bipap but clinically she is not well suited for this. Sats are better. Obtained ABG and PaO2 is 66 but this is on bipap and 100%. Mental status is unchanged. Objective Vital Signs - 12hr 04/25/21 04/25/21 04/25/21 23:15 23:30 23:45 Temperature Pulse Rate 79 75 73 Pulse Rate [ Right Radial] Respiratory 33 H 32 H 31 H Rate Blood Pressure 100/47 101/49 101/49 O2 Sat by Pulse 97 96 97 Oximetry 04/26/21 04/26/21 04/26/21 00:00 00:15 00:30 Temperature 97.8 F Pulse Rate 73 73 65 Pulse Rate [ 80 Right Radial] Respiratory 32 H 32 H 31 H Rate Blood Pressure 99/49 99/49 109/48 O2 Sat by Pulse 98 98 99 Oximetry 04/26/21 04/26/21 04/26/21 00:45 01:00 01:15 Temperature Pulse Rate 69 73 81 Pulse Rate [ Right Radial] Respiratory 31 H 31 H 23 Rate Blood Pressure 109/48 119/54 119/54 O2 Sat by Pulse 98 98 98 Oximetry 04/26/21 04/26/21 04/26/21 01:30 01:45 02:00 Temperature Pulse Rate 79 77 78 Pulse Rate [ Right Radial] Respiratory 33 H 32 H 28 H Rate Blood Pressure 115/54 115/54 121/54 O2 Sat by Pulse 95 94 97 Oximetry 04/26/21 04/26/21 04/26/21 02:15 02:30 02:45 Temperature Pulse Rate 79 74 74 Pulse Rate [ Right Radial] Respiratory 34 H 27 H 27 H Rate Blood Pressure 121/54 107/50 107/50 O2 Sat by Pulse 96 94 96 Oximetry 04/26/21 04/26/21 04/26/21 03:00 03:15 03:31 Temperature Pulse Rate 65 70 65 Pulse Rate [ Right Radial] Respiratory 28 H 29 H 30 H Rate Blood Pressure 109/48 109/48 91/48 O2 Sat by Pulse 96 94 96 Oximetry 04/26/21 04/26/21 04/26/21 03:45 04:00 04:15 Temperature 98.2 F Pulse Rate 65 72 68 Pulse Rate [ 72 Right Radial] Respiratory 29 H 21 28 H Rate Blood Pressure 91/48 133/61 133/61 O2 Sat by Pulse 97 100 98 Oximetry 04/26/21 04/26/21 04/26/21 04:30 04:45 05:00 Temperature Pulse Rate 79 67 91 H Pulse Rate [ Right Radial] Respiratory 19 31 H 34 H Rate Blood Pressure 145/65 145/65 181/71 O2 Sat by Pulse 98 96 99 Oximetry 04/26/21 04/26/21 04/26/21 05:15 05:30 05:45 Temperature Pulse Rate 89 91 H 89 Pulse Rate [ Right Radial] Respiratory 29 H 25 H 34 H Rate Blood Pressure 181/71 177/71 177/71 O2 Sat by Pulse 97 96 95 Oximetry 04/26/21 04/26/21 04/26/21 06:00 06:15 06:30 Temperature Pulse Rate 90 78 84 Pulse Rate [ Right Radial] Respiratory 36 H 21 31 H Rate Blood Pressure 145/82 145/82 135/76 O2 Sat by Pulse 94 95 93 Oximetry 04/26/21 04/26/21 04/26/21 06:45 07:01 07:15 Temperature Pulse Rate 74 79 81 Pulse Rate [ Right Radial] Respiratory 22 33 H 28 H Rate Blood Pressure 135/76 144/55 144/55 O2 Sat by Pulse 96 95 95 Oximetry 04/26/21 04/26/21 04/26/21 07:22 07:31 07:45 Temperature 97.4 F L Pulse Rate 82 77 Pulse Rate [ Right Radial] Respiratory 27 H 26 H Rate Blood Pressure 132/69 132/69 O2 Sat by Pulse 94 95 Oximetry 04/26/21 04/26/21 04/26/21 08:00 08:15 08:30 Temperature Pulse Rate 77 79 85 Pulse Rate [ Right Radial] Respiratory 27 H 27 H 27 H Rate Blood Pressure 147/63 147/63 152/68 O2 Sat by Pulse 96 97 96 Oximetry 04/26/21 04/26/21 04/26/21 08:45 09:01 09:15 Temperature Pulse Rate 79 73 81 Pulse Rate [ Right Radial] Respiratory 25 H 26 H 24 Rate Blood Pressure 152/68 164/64 164/64 O2 Sat by Pulse 94 95 95 Oximetry 04/26/21 04/26/21 04/26/21 09:30 09:45 10:00 Temperature Pulse Rate 77 73 77 Pulse Rate [ Right Radial] Respiratory 24 25 H 32 H Rate Blood Pressure 150/57 150/57 150/57 O2 Sat by Pulse 94 93 93 Oximetry 04/26/21 04/26/21 10:15 10:30 Temperature Pulse Rate 71 73 Pulse Rate [ Right Radial] Respiratory 24 25 H Rate Blood Pressure 152/55 139/57 O2 Sat by Pulse 93 93 Oximetry Constitutional: other (critically ill, somnolent) Eyes: non-icteric ENT: oropharynx dry Effort: other (tachypneic but not labored) Ascultation: Bilateral: clear Cardiovascular: regular rate and rhythm Gastrointestinal: normoactive bowel sounds, soft, non-tender, non-distended Integumentary: normal Extremities: no cyanosis, no edema, pink and warm Neurologic: unable to assess Psychiatric: other (unable to assess) CBC and BMP: 04/26/21 09:33 04/26/21 09:33 ABG, PT/INR, D-dimer: ABG ABG pH 7.486 pH Units (7.350-7.450) H 04/21/21 15:47 ABG pCO2 31.6 mm Hg 04/21/21 15:47 ABG pO2 168.1 mm Hg (80.0-90.0) H 04/21/21 15:47 ABG O2 Saturation 99.1 % (95.0-99.0) H 04/21/21 15:47 Abnormal lab findings: Abnormal Labs 12/29/21 12/29/21 12/29/21 17:10 17:10 17:10 WBC 17.4 H RBC 5.19 H Hct 46.8 H MCH 27 L RDW 17.2 H Plt Count Seg Neuts % (Manual) 98.0 H Lymphocytes % (Manual) 2.0 L Nucleated RBC % 1.0 H Seg Neutrophils # Man 17.1 H Lymphocytes # (Manual) 0.3 L ABG pH ABG pO2 ABG O2 Saturation ABG Base Excess ABG Hemoglobin Oxyhemoglobin Sodium 173 H* Potassium Chloride 132.9 H Carbon Dioxide 17 L BUN 120 H Creatinine 4.2 H Glucose 762 H* POC Glucose Hemoglobin A1c Lactic Acid Calcium Phosphorus Magnesium 3.80 H Transferrin AST 72 H ALT 63 H Alkaline Phosphatase 148 H Total Creatine Kinase 3697 H CK-MB (CK-2) 36.0 H Total Protein Albumin 2.2 L TSH Urine Creatinine Urine Total Protein 04/20/21 04/20/21 04/20/21 17:10 17:10 18:55 WBC RBC Hct MCH RDW Plt Count Seg Neuts % (Manual) Lymphocytes % (Manual) Nucleated RBC % Seg Neutrophils # Man Lymphocytes # (Manual) ABG pH ABG pO2 ABG O2 Saturation ABG Base Excess ABG Hemoglobin Oxyhemoglobin Sodium Potassium Chloride Carbon Dioxide BUN Creatinine Glucose POC Glucose 574 H Hemoglobin A1c Lactic Acid 2.60 H* Calcium Phosphorus Magnesium Transferrin AST ALT Alkaline Phosphatase Total Creatine Kinase CK-MB (CK-2) Total Protein Albumin TSH 6.040 H Urine Creatinine Urine Total Protein 04/20/21 04/20/21 04/21/21 22:58 22:58 00:14 WBC RBC Hct MCH RDW Plt Count Seg Neuts % (Manual) Lymphocytes % (Manual) Nucleated RBC % Seg Neutrophils # Man Lymphocytes # (Manual) ABG pH ABG pO2 ABG O2 Saturation ABG Base Excess ABG Hemoglobin Oxyhemoglobin Sodium 172 H* Potassium 3.2 L Chloride 134.2 H Carbon Dioxide 17 L BUN 112 H Creatinine 3.8 H Glucose 803 H* POC Glucose > 600 H Hemoglobin A1c Lactic Acid Calcium 8.3 L Phosphorus Magnesium 3.50 H Transferrin AST ALT Alkaline Phosphatase Total Creatine Kinase CK-MB (CK-2) Total Protein Albumin TSH Urine Creatinine Urine Total Protein 04/21/21 04/21/21 04/21/21 00:22 02:01 03:11 WBC RBC Hct MCH RDW Plt Count Seg Neuts % (Manual) Lymphocytes % (Manual) Nucleated RBC % Seg Neutrophils # Man Lymphocytes # (Manual) ABG pH ABG pO2 ABG O2 Saturation ABG Base Excess ABG Hemoglobin Oxyhemoglobin Sodium 176 H* 175 H* Potassium 2.9 L* 3.0 L Chloride 139.9 H 136.2 H Carbon Dioxide 17 L 19 L BUN 113 H 112 H Creatinine 3.9 H 3.6 H Glucose 729 H* 582 H* POC Glucose 404 H Hemoglobin A1c Lactic Acid Calcium Phosphorus Magnesium Transferrin AST ALT Alkaline Phosphatase Total Creatine Kinase CK-MB (CK-2) Total Protein Albumin TSH Urine Creatinine Urine Total Protein 04/21/21 04/21/21 04/21/21 03:20 03:41 03:41 WBC 14.1 H RBC Hct MCH 27 L RDW 16.8 H Plt Count 114 L Seg Neuts % (Manual) 97.0 H Lymphocytes % (Manual) 3.0 L Nucleated RBC % 1.0 H Seg Neutrophils # Man 13.7 H Lymphocytes # (Manual) 0.4 L ABG pH ABG pO2 52.3 L ABG O2 Saturation 84.5 L ABG Base Excess -2.9 L ABG Hemoglobin Oxyhemoglobin 82.9 L Sodium 179 H* Potassium 2.9 L* Chloride 138.2 H Carbon Dioxide 20 L BUN 111 H Creatinine 3.7 H Glucose 465 H POC Glucose Hemoglobin A1c Lactic Acid Calcium Phosphorus Magnesium Transferrin AST 73 H ALT 61 H Alkaline Phosphatase 144 H Total Creatine Kinase CK-MB (CK-2) Total Protein Albumin 2.5 L TSH Urine Creatinine Urine Total Protein 04/21/21 04/21/21 04/21/21 04:24 05:45 06:47 WBC RBC Hct MCH RDW Plt Count Seg Neuts % (Manual) Lymphocytes % (Manual) Nucleated RBC % Seg Neutrophils # Man Lymphocytes # (Manual) ABG pH ABG pO2 ABG O2 Saturation ABG Base Excess ABG Hemoglobin Oxyhemoglobin Sodium Potassium Chloride Carbon Dioxide BUN Creatinine Glucose POC Glucose 353 H 280 H 260 H Hemoglobin A1c Lactic Acid Calcium Phosphorus Magnesium Transferrin AST ALT Alkaline Phosphatase Total Creatine Kinase CK-MB (CK-2) Total Protein Albumin TSH Urine Creatinine Urine Total Protein 04/21/21 04/21/21 04/21/21 08:01 11:11 12:51 WBC RBC Hct MCH RDW Plt Count Seg Neuts % (Manual) Lymphocytes % (Manual) Nucleated RBC % Seg Neutrophils # Man Lymphocytes # (Manual) ABG pH ABG pO2 ABG O2 Saturation ABG Base Excess ABG Hemoglobin Oxyhemoglobin Sodium Potassium Chloride Carbon Dioxide BUN Creatinine Glucose POC Glucose 68 L 146 H Hemoglobin A1c Lactic Acid Calcium Phosphorus Magnesium Transferrin AST ALT Alkaline Phosphatase Total Creatine Kinase CK-MB (CK-2) Total Protein Albumin TSH Urine Creatinine 44.3 H Urine Total Protein 12 H 04/21/21 04/21/21 04/21/21 14:40 15:47 16:25 WBC RBC Hct MCH RDW Plt Count Seg Neuts % (Manual) Lymphocytes % (Manual) Nucleated RBC % Seg Neutrophils # Man Lymphocytes # (Manual) ABG pH 7.486 H ABG pO2 168.1 H ABG O2 Saturation 99.1 H ABG Base Excess ABG Hemoglobin 8.9 L Oxyhemoglobin Sodium Potassium Chloride Carbon Dioxide BUN Creatinine Glucose POC Glucose 186 H 172 H Hemoglobin A1c Lactic Acid Calcium Phosphorus Magnesium Transferrin AST ALT Alkaline Phosphatase Total Creatine Kinase CK-MB (CK-2) Total Protein Albumin TSH Urine Creatinine Urine Total Protein 04/21/21 04/21/21 04/21/21 17:57 18:49 19:10 WBC RBC Hct MCH RDW Plt Count Seg Neuts % (Manual) Lymphocytes % (Manual) Nucleated RBC % Seg Neutrophils # Man Lymphocytes # (Manual) ABG pH ABG pO2 ABG O2 Saturation ABG Base Excess ABG Hemoglobin Oxyhemoglobin Sodium 174 H* Potassium 7.2 H* D Chloride 138.2 H Carbon Dioxide 21 L BUN 99 H Creatinine 4.0 H Glucose 157 H POC Glucose 143 H 126 H Hemoglobin A1c Lactic Acid Calcium Phosphorus Magnesium Transferrin AST 134 H ALT 71 H Alkaline Phosphatase 135 H Total Creatine Kinase 3504 H CK-MB (CK-2) Total Protein Albumin 2.2 L TSH Urine Creatinine Urine Total Protein 04/21/21 04/21/21 04/21/21 20:26 20:53 21:52 WBC RBC Hct MCH RDW Plt Count Seg Neuts % (Manual) Lymphocytes % (Manual) Nucleated RBC % Seg Neutrophils # Man Lymphocytes # (Manual) ABG pH ABG pO2 ABG O2 Saturation ABG Base Excess ABG Hemoglobin Oxyhemoglobin Sodium Potassium Chloride Carbon Dioxide BUN Creatinine Glucose POC Glucose 190 H 116 H 135 H Hemoglobin A1c Lactic Acid Calcium Phosphorus Magnesium Transferrin AST ALT Alkaline Phosphatase Total Creatine Kinase CK-MB (CK-2) Total Protein Albumin TSH Urine Creatinine Urine Total Protein 04/21/21 04/21/21 04/22/21 22:55 23:00 00:01 WBC RBC Hct MCH RDW Plt Count Seg Neuts % (Manual) Lymphocytes % (Manual) Nucleated RBC % Seg Neutrophils # Man Lymphocytes # (Manual) ABG pH ABG pO2 ABG O2 Saturation ABG Base Excess ABG Hemoglobin Oxyhemoglobin Sodium 176 H* Potassium Chloride 140.0 H Carbon Dioxide 20 L BUN 98 H Creatinine 3.9 H Glucose 206 H POC Glucose 158 H 182 H Hemoglobin A1c Lactic Acid Calcium Phosphorus Magnesium Transferrin AST ALT Alkaline Phosphatase Total Creatine Kinase 3240 H CK-MB (CK-2) Total Protein Albumin TSH Urine Creatinine Urine Total Protein 04/22/21 04/22/21 04/22/21 00:39 00:58 01:04 WBC RBC Hct MCH RDW Plt Count Seg Neuts % (Manual) Lymphocytes % (Manual) Nucleated RBC % Seg Neutrophils # Man Lymphocytes # (Manual) ABG pH ABG pO2 ABG O2 Saturation ABG Base Excess ABG Hemoglobin Oxyhemoglobin Sodium 171 H* Potassium Chloride Carbon Dioxide BUN Creatinine Glucose POC Glucose 176 H 143 H Hemoglobin A1c Lactic Acid Calcium Phosphorus Magnesium Transferrin AST ALT Alkaline Phosphatase Total Creatine Kinase CK-MB (CK-2) Total Protein Albumin TSH Urine Creatinine Urine Total Protein 04/22/21 04/22/21 04/22/21 04:52 06:07 06:09 WBC 11.2 H RBC Hct 44.3 H MCH 27 L RDW 17.1 H Plt Count 86 L Seg Neuts % (Manual) 86.0 H Lymphocytes % (Manual) 13.0 L Nucleated RBC % Seg Neutrophils # Man 9.6 H Lymphocytes # (Manual) ABG pH ABG pO2 ABG O2 Saturation ABG Base Excess ABG Hemoglobin Oxyhemoglobin Sodium Potassium Chloride Carbon Dioxide BUN Creatinine Glucose POC Glucose 206 H 163 H Hemoglobin A1c Lactic Acid Calcium Phosphorus Magnesium Transferrin AST ALT Alkaline Phosphatase Total Creatine Kinase CK-MB (CK-2) Total Protein Albumin TSH Urine Creatinine Urine Total Protein 04/22/21 04/22/21 04/22/21 07:18 08:59 08:59 WBC RBC Hct MCH RDW Plt Count Seg Neuts % (Manual) Lymphocytes % (Manual) Nucleated RBC % Seg Neutrophils # Man Lymphocytes # (Manual) ABG pH ABG pO2 ABG O2 Saturation ABG Base Excess ABG Hemoglobin Oxyhemoglobin Sodium 169 H* Potassium 3.5 L Chloride 134.5 H Carbon Dioxide 20 L BUN 95 H Creatinine 3.6 H Glucose 151 H POC Glucose 158 H Hemoglobin A1c Lactic Acid Calcium Phosphorus Magnesium Transferrin AST 121 H ALT 75 H Alkaline Phosphatase 137 H Total Creatine Kinase 3105 H CK-MB (CK-2) Total Protein 6.0 L Albumin 2.1 L TSH Urine Creatinine Urine Total Protein 04/22/21 04/22/21 04/22/21 09:44 10:24 12:20 WBC RBC Hct MCH RDW Plt Count Seg Neuts % (Manual) Lymphocytes % (Manual) Nucleated RBC % Seg Neutrophils # Man Lymphocytes # (Manual) ABG pH ABG pO2 ABG O2 Saturation ABG Base Excess ABG Hemoglobin Oxyhemoglobin Sodium Potassium Chloride Carbon Dioxide BUN Creatinine Glucose POC Glucose 107 H 131 H Hemoglobin A1c Lactic Acid Calcium Phosphorus Magnesium 2.80 H Transferrin AST ALT Alkaline Phosphatase Total Creatine Kinase CK-MB (CK-2) Total Protein Albumin TSH Urine Creatinine Urine Total Protein 04/22/21 04/22/21 04/22/21 13:19 14:16 15:22 WBC RBC Hct MCH RDW Plt Count Seg Neuts % (Manual) Lymphocytes % (Manual) Nucleated RBC % Seg Neutrophils # Man Lymphocytes # (Manual) ABG pH ABG pO2 ABG O2 Saturation ABG Base Excess ABG Hemoglobin Oxyhemoglobin Sodium Potassium Chloride Carbon Dioxide BUN Creatinine Glucose POC Glucose 147 H 154 H 136 H Hemoglobin A1c Lactic Acid Calcium Phosphorus Magnesium Transferrin AST ALT Alkaline Phosphatase Total Creatine Kinase CK-MB (CK-2) Total Protein Albumin TSH Urine Creatinine Urine Total Protein 04/22/21 04/22/21 04/22/21 15:55 15:55 16:22 WBC RBC Hct MCH RDW Plt Count Seg Neuts % (Manual) Lymphocytes % (Manual) Nucleated RBC % Seg Neutrophils # Man Lymphocytes # (Manual) ABG pH ABG pO2 ABG O2 Saturation ABG Base Excess ABG Hemoglobin Oxyhemoglobin Sodium 169 H* Potassium Chloride 133.5 H Carbon Dioxide 19 L BUN 94 H Creatinine 3.8 H Glucose 150 H POC Glucose 140 H Hemoglobin A1c 17.1 H Lactic Acid Calcium Phosphorus Magnesium Transferrin AST ALT Alkaline Phosphatase Total Creatine Kinase CK-MB (CK-2) Total Protein Albumin TSH Urine Creatinine Urine Total Protein 04/22/21 04/22/21 04/22/21 18:11 18:26 23:19 WBC RBC Hct MCH RDW Plt Count Seg Neuts % (Manual) Lymphocytes % (Manual) Nucleated RBC % Seg Neutrophils # Man Lymphocytes # (Manual) ABG pH ABG pO2 ABG O2 Saturation ABG Base Excess ABG Hemoglobin Oxyhemoglobin Sodium Potassium Chloride Carbon Dioxide BUN Creatinine Glucose POC Glucose 146 H 188 H Hemoglobin A1c Lactic Acid Calcium Phosphorus Magnesium Transferrin AST ALT Alkaline Phosphatase Total Creatine Kinase 2497 H CK-MB (CK-2) Total Protein Albumin TSH Urine Creatinine Urine Total Protein 04/23/21 04/23/21 04/23/21 00:27 05:23 07:50 WBC RBC Hct MCH RDW Plt Count Seg Neuts % (Manual) Lymphocytes % (Manual) Nucleated RBC % Seg Neutrophils # Man Lymphocytes # (Manual) ABG pH ABG pO2 ABG O2 Saturation ABG Base Excess ABG Hemoglobin Oxyhemoglobin Sodium 162 H* Potassium Chloride Carbon Dioxide BUN Creatinine Glucose POC Glucose 212 H 239 H Hemoglobin A1c Lactic Acid Calcium Phosphorus Magnesium Transferrin AST ALT Alkaline Phosphatase Total Creatine Kinase CK-MB (CK-2) Total Protein Albumin TSH Urine Creatinine Urine Total Protein 04/23/21 04/23/21 04/23/21 08:13 08:13 08:13 WBC 11.9 H RBC Hct MCH 26 L RDW 16.5 H Plt Count 72 L Seg Neuts % (Manual) 80.0 H Lymphocytes % (Manual) 5.0 L Nucleated RBC % Seg Neutrophils # Man 9.5 H Lymphocytes # (Manual) 0.6 L ABG pH ABG pO2 ABG O2 Saturation ABG Base Excess ABG Hemoglobin Oxyhemoglobin Sodium 164 H* Potassium Chloride 128.0 H Carbon Dioxide 21 L BUN 93 H Creatinine 3.8 H Glucose 293 H POC Glucose Hemoglobin A1c Lactic Acid Calcium Phosphorus Magnesium Transferrin AST 99 H ALT 70 H Alkaline Phosphatase 147 H Total Creatine Kinase 1803 H CK-MB (CK-2) Total Protein 6.1 L Albumin 2.0 L TSH Urine Creatinine Urine Total Protein 04/23/21 04/23/21 04/23/21 12:06 17:35 18:17 WBC RBC Hct MCH RDW Plt Count Seg Neuts % (Manual) Lymphocytes % (Manual) Nucleated RBC % Seg Neutrophils # Man Lymphocytes # (Manual) ABG pH ABG pO2 ABG O2 Saturation ABG Base Excess ABG Hemoglobin Oxyhemoglobin Sodium 160 H Potassium Chloride Carbon Dioxide BUN Creatinine Glucose POC Glucose 311 H 370 H Hemoglobin A1c Lactic Acid Calcium Phosphorus Magnesium Transferrin AST ALT Alkaline Phosphatase Total Creatine Kinase CK-MB (CK-2) Total Protein Albumin TSH Urine Creatinine Urine Total Protein 04/24/21 04/24/21 04/24/21 02:13 06:00 06:00 WBC RBC Hct MCH 27 L RDW 17.0 H Plt Count 58 L Seg Neuts % (Manual) Lymphocytes % (Manual) 2.0 L Nucleated RBC % Seg Neutrophils # Man 8.9 H Lymphocytes # (Manual) 0.2 L ABG pH ABG pO2 ABG O2 Saturation ABG Base Excess ABG Hemoglobin Oxyhemoglobin Sodium 160 H Potassium Chloride Carbon Dioxide BUN Creatinine Glucose POC Glucose Hemoglobin A1c Lactic Acid Calcium Phosphorus Magnesium 2.90 H Transferrin AST ALT Alkaline Phosphatase Total Creatine Kinase CK-MB (CK-2) Total Protein Albumin TSH Urine Creatinine Urine Total Protein 04/24/21 04/24/21 04/24/21 07:46 08:15 11:34 WBC RBC Hct MCH RDW Plt Count Seg Neuts % (Manual) Lymphocytes % (Manual) Nucleated RBC % Seg Neutrophils # Man Lymphocytes # (Manual) ABG pH ABG pO2 ABG O2 Saturation ABG Base Excess ABG Hemoglobin Oxyhemoglobin Sodium 159 H Potassium Chloride 125.6 H Carbon Dioxide 19 L BUN 94 H Creatinine 3.7 H Glucose 514 H* POC Glucose 395 H 422 H Hemoglobin A1c Lactic Acid Calcium Phosphorus Magnesium Transferrin AST ALT 61 H Alkaline Phosphatase 155 H Total Creatine Kinase CK-MB (CK-2) Total Protein 6.1 L Albumin 1.5 L TSH Urine Creatinine Urine Total Protein 04/24/21 04/24/21 04/24/21 13:11 14:01 15:03 WBC RBC Hct MCH RDW Plt Count Seg Neuts % (Manual) Lymphocytes % (Manual) Nucleated RBC % Seg Neutrophils # Man Lymphocytes # (Manual) ABG pH ABG pO2 ABG O2 Saturation ABG Base Excess ABG Hemoglobin Oxyhemoglobin Sodium Potassium Chloride Carbon Dioxide BUN Creatinine Glucose POC Glucose 384 H 423 H 418 H Hemoglobin A1c Lactic Acid Calcium Phosphorus Magnesium Transferrin AST ALT Alkaline Phosphatase Total Creatine Kinase CK-MB (CK-2) Total Protein Albumin TSH Urine Creatinine Urine Total Protein 04/24/21 04/24/21 04/24/21 17:29 18:28 19:41 WBC RBC Hct MCH RDW Plt Count Seg Neuts % (Manual) Lymphocytes % (Manual) Nucleated RBC % Seg Neutrophils # Man Lymphocytes # (Manual) ABG pH ABG pO2 ABG O2 Saturation ABG Base Excess ABG Hemoglobin Oxyhemoglobin Sodium Potassium Chloride Carbon Dioxide BUN Creatinine Glucose POC Glucose 335 H 321 H Hemoglobin A1c Lactic Acid Calcium Phosphorus Magnesium Transferrin 112 L AST ALT Alkaline Phosphatase Total Creatine Kinase CK-MB (CK-2) Total Protein Albumin TSH Urine Creatinine Urine Total Protein 04/24/21 04/25/21 04/25/21 22:33 01:28 02:28 WBC RBC Hct MCH RDW Plt Count Seg Neuts % (Manual) Lymphocytes % (Manual) Nucleated RBC % Seg Neutrophils # Man Lymphocytes # (Manual) ABG pH ABG pO2 ABG O2 Saturation ABG Base Excess ABG Hemoglobin Oxyhemoglobin Sodium Potassium Chloride Carbon Dioxide BUN Creatinine Glucose POC Glucose 349 H 283 H 247 H Hemoglobin A1c Lactic Acid Calcium Phosphorus Magnesium Transferrin AST ALT Alkaline Phosphatase Total Creatine Kinase CK-MB (CK-2) Total Protein Albumin TSH Urine Creatinine Urine Total Protein 04/25/21 04/25/21 04/25/21 03:25 04:22 05:40 WBC RBC Hct MCH RDW Plt Count Seg Neuts % (Manual) Lymphocytes % (Manual) Nucleated RBC % Seg Neutrophils # Man Lymphocytes # (Manual) ABG pH ABG pO2 ABG O2 Saturation ABG Base Excess ABG Hemoglobin Oxyhemoglobin Sodium Potassium Chloride Carbon Dioxide BUN Creatinine Glucose POC Glucose 196 H 207 H 204 H Hemoglobin A1c Lactic Acid Calcium Phosphorus Magnesium Transferrin AST ALT Alkaline Phosphatase Total Creatine Kinase CK-MB (CK-2) Total Protein Albumin TSH Urine Creatinine Urine Total Protein 04/25/21 04/25/21 04/25/21 05:45 06:43 07:37 WBC RBC Hct MCH 27 L RDW 17.0 H Plt Count 64 L Seg Neuts % (Manual) 84.0 H Lymphocytes % (Manual) 6.0 L Nucleated RBC % 1.0 H Seg Neutrophils # Man Lymphocytes # (Manual) 0.4 L ABG pH ABG pO2 ABG O2 Saturation ABG Base Excess ABG Hemoglobin Oxyhemoglobin Sodium Potassium Chloride Carbon Dioxide BUN Creatinine Glucose POC Glucose 238 H 201 H Hemoglobin A1c Lactic Acid Calcium Phosphorus Magnesium Transferrin AST ALT Alkaline Phosphatase Total Creatine Kinase CK-MB (CK-2) Total Protein Albumin TSH Urine Creatinine Urine Total Protein 04/25/21 04/25/21 04/25/21 08:11 08:11 08:41 WBC RBC Hct MCH RDW Plt Count Seg Neuts % (Manual) Lymphocytes % (Manual) Nucleated RBC % Seg Neutrophils # Man Lymphocytes # (Manual) ABG pH ABG pO2 ABG O2 Saturation ABG Base Excess ABG Hemoglobin Oxyhemoglobin Sodium 148 H D Potassium Chloride 115.7 H Carbon Dioxide 21 L BUN 83 H Creatinine 3.6 H Glucose 247 H POC Glucose 220 H Hemoglobin A1c Lactic Acid Calcium Phosphorus Magnesium 2.50 H Transferrin AST 63 H ALT 62 H Alkaline Phosphatase 143 H Total Creatine Kinase CK-MB (CK-2) Total Protein 5.4 L Albumin 1.4 L TSH Urine Creatinine Urine Total Protein 04/25/21 04/25/21 04/25/21 09:22 10:31 11:44 WBC RBC Hct MCH RDW Plt Count Seg Neuts % (Manual) Lymphocytes % (Manual) Nucleated RBC % Seg Neutrophils # Man Lymphocytes # (Manual) ABG pH ABG pO2 ABG O2 Saturation ABG Base Excess ABG Hemoglobin Oxyhemoglobin Sodium Potassium Chloride Carbon Dioxide BUN Creatinine Glucose POC Glucose 228 H 215 H 191 H Hemoglobin A1c Lactic Acid Calcium Phosphorus Magnesium Transferrin AST ALT Alkaline Phosphatase Total Creatine Kinase CK-MB (CK-2) Total Protein Albumin TSH Urine Creatinine Urine Total Protein 04/25/21 04/25/21 04/25/21 12:23 13:48 14:11 WBC RBC Hct MCH RDW Plt Count Seg Neuts % (Manual) Lymphocytes % (Manual) Nucleated RBC % Seg Neutrophils # Man Lymphocytes # (Manual) ABG pH ABG pO2 ABG O2 Saturation ABG Base Excess ABG Hemoglobin Oxyhemoglobin Sodium Potassium Chloride Carbon Dioxide BUN Creatinine Glucose POC Glucose 229 H 177 H 161 H Hemoglobin A1c Lactic Acid Calcium Phosphorus Magnesium Transferrin AST ALT Alkaline Phosphatase Total Creatine Kinase CK-MB (CK-2) Total Protein Albumin TSH Urine Creatinine Urine Total Protein 04/25/21 04/25/21 04/26/21 18:01 21:31 01:19 WBC RBC Hct MCH RDW Plt Count Seg Neuts % (Manual) Lymphocytes % (Manual) Nucleated RBC % Seg Neutrophils # Man Lymphocytes # (Manual) ABG pH ABG pO2 ABG O2 Saturation ABG Base Excess ABG Hemoglobin Oxyhemoglobin Sodium Potassium Chloride Carbon Dioxide BUN Creatinine Glucose POC Glucose 264 H 371 H 356 H Hemoglobin A1c Lactic Acid Calcium Phosphorus Magnesium Transferrin AST ALT Alkaline Phosphatase Total Creatine Kinase CK-MB (CK-2) Total Protein Albumin TSH Urine Creatinine Urine Total Protein 01/04/22 01/04/22 01/04/22 06:31 09:13 09:33 WBC RBC Hct MCH 27 L RDW 16.9 H Plt Count 58 L Seg Neuts % (Manual) 77.0 H Lymphocytes % (Manual) 4.0 L Nucleated RBC % 2.0 H Seg Neutrophils # Man Lymphocytes # (Manual) 0.3 L ABG pH ABG pO2 ABG O2 Saturation ABG Base Excess ABG Hemoglobin Oxyhemoglobin Sodium Potassium Chloride Carbon Dioxide BUN Creatinine Glucose POC Glucose 428 H 454 H Hemoglobin A1c Lactic Acid Calcium Phosphorus Magnesium Transferrin AST ALT Alkaline Phosphatase Total Creatine Kinase CK-MB (CK-2) Total Protein Albumin TSH Urine Creatinine Urine Total Protein 04/26/21 04/26/21 09:33 09:33 WBC RBC Hct MCH RDW Plt Count Seg Neuts % (Manual) Lymphocytes % (Manual) Nucleated RBC % Seg Neutrophils # Man Lymphocytes # (Manual) ABG pH ABG pO2 ABG O2 Saturation ABG Base Excess ABG Hemoglobin Oxyhemoglobin Sodium Potassium Chloride Carbon Dioxide 19 L BUN 98 H Creatinine 3.8 H Glucose 530 H* POC Glucose Hemoglobin A1c Lactic Acid Calcium 8.1 L Phosphorus 5.60 H D Magnesium Transferrin AST 60 H ALT 72 H Alkaline Phosphatase 168 H Total Creatine Kinase CK-MB (CK-2) Total Protein 4.6 L Albumin 1.7 L TSH Urine Creatinine Urine Total Protein
[2021-04-26] MEDS ORDERED: LIP THERAPY VASELINE TP PRN (11:16)
[2021-04-26] MEDS ORDERED: MINERAL OIL/PETROLATUM, WHITE OPHTH OINT 3.5 GM OU PRN (11:16)
[2021-04-26] MEDS ORDERED: SODIUM CHLORIDE 0.9% 1000 ML 1,000 ML ONE (11:36)
[2021-04-26] MEDS ORDERED: HYDROCORTISONE SOD SUCC 100 MG/2 ML VIAL ONE (11:38)
[2021-04-26] MEDS ORDERED: PHENYLEPHRINE 10 MG/1 ML INJ SDV ONE (11:51)
[2021-04-26] MEDS ORDERED: SODIUM CHLORIDE 0.9% 1000 ML 1,000 ML IV SCH (12:00)
[2021-04-26] MEDS ORDERED: PHENYLEPHRINE 10 MG/1 ML INJ SDV IV ONE (12:00)
[2021-04-26] MEDS ORDERED: MIDAZOLAM 2 MG/2 ML INJ IV NR (12:00)
[2021-04-26] MEDS ORDERED: HYDROCORTISONE SOD SUCC 100 MG/2 ML VIAL IV ONE (12:00)
--- NOTE | 2021-04-26 12:00 | Procedure Note ---
Date of procedure: 04/26/21 Pre-op diagnosis: Hypoxemia Post-op diagnosis: same Procedure: RSI intubation using Fent, Etomidate and Versed Using the [place] Scope and a 3.0 blade, Grade 2 view of cords seen. Suction prior to good visualization. 7.5 passed through cords and secured 22 at the lip. Chest rise seen with good color change on CO2 detector. Awaiting CXR for placement. Transient hypertension resolved with steroids and a push of jayla. Attempted to call POA but line was busy. Anesthesia: MAC Surgeon: AURORA GAYTAN Estimated blood loss: none Pathology: none Condition: critical Disposition: ICU
--- NOTE | 2021-04-26 12:02 | Progress Note ---
<LISA CLIFTON - Last Filed: 04/26/21 21:56> Assessment and Plan Assessment and plan: This is a 80-year-old female, [facility] resident with past medical history of GERD, hypothyroidism, hyperlipidemia, schizophrenia and dementia admitted with hypothermia, hyponatremia, hypokalemia, lactic acidosis, acute kidney injury, rhabdomyolysis and hyperosmolar nonketotic state. Hospital Course to Date: This is a 80-year-old female who was [facility]itentiary resident at [facility] with GERD, hypothyroidism, hyperlipidemia, schizophrenia and dementia presented to the emergency department on 04/20 after being found unresponsive by the staff via EMS. Per EMS glucose levels read as high. Work-up in the emergency department revealed severe hypernatremia, leukocytosis, metabolic acidosis, hyperchloremia, elevated BUN/creatinine, lactic acidosis and hyperglycemia. Patient was also hypothermic on admit. CT head showed findings suggestive of the possibility of normal pressure hydrocephalus. Patient was admitted to the hospitalist service with acute metabolic encephalopathy, diabetic hyperosmolar nonketotic state, acute kidney injury, hypernatremia, rhabdomyolysis and leukocytosis with consults to nephrology and CCM. 04/21: Given 1 L LR bolus per nephrology and D5W increased to 125 mL's per hour, COVID-19 PCR pending, CXR and ABG ordered as patient was weaned from BiPAP to 3 L nasal cannula however was uptitrated back to nonrebreather. Will obtain blood cultures x2 given her leukocytosis and hypothermia. Replace potassium. Neurosurgery and neurology consulted and Luther catheter placed. 04/22: Improvement to sodium noted, slight hypokalemia which will be repleted, slight improvement to renal function, LFTs and rhabdomyolysis. Seen by neurosurgery today. Patient still making urine. transition to ssi and start TF as AG 15 04/23/2021: Given racemic epinephrine again due to stridor, continue IV fluids per nephrology, continue to trend sodium and BMP. 04/24/2021: /30 increased d/t hyperglycemia but recent BMP showed BG>300, gave additional 5 units IV insulin and ordered 5 units TID scheduled. However after IV insulin her PCOT was 400. Start on insulin gtt for hyperglycemia. Per RN she was not of IV D5 overniught d/t having one IV which was needed for emergency. Day RN did start dextrose. Remains with hyperglycemia. 04/25: Patient obtunded, withdrawal to pain only, on 50%Venti mask SPO2 abobe 92%. Plan to transition to SubQ insulin. Patient with mild hypernatremia this am, FWF added, will stop IVF for now. 04/26: Patient s/p intubation this am. Mentation is unchanged, plan for MRI brain today per NeuroSurg. Still hyperglycemic, hypernatremia improved, D5W D/katlyn, and basal insulin adjusted. Assessment and Plan #Neuro: Acute metabolic encephalopathy #Normal Pressure Hydrocephalus -CT head shows lateral ventricles and third ventricle dilation, raises possibility of normal pressure hydrocephalus -Neurology and neurosurgery consulted, appreciate recommendations -neurosurgery no acute interventions -Pending MRI brain today -Maintain sleep-wake cycle -Avoid delirium -Correct electrolyte derangements -Hold off on restarting home antipsychotic medications when obtained #Respiratory: Acute hypoxic respiratory failure #CAP -Patient decompensated overnight SPO2 dropped in the low 70s -S/p intubation this am 04/26 -Vent setting:PRVC- 100%,8,14,450 -Preintubation ABG noted, repeat ABG postintubation per protocol -CCM consulted, appreciate recommendations -VAP bundle addressed -Aspiration precaution HOB above 30 -Daily SBT and SAT trials as tolerated -Daily ABG and CXR -Continue SPO2 monitoring for SPO2 goal above 92% #GI:Transaminitis #Hypoalbuminemia -Presented with transaminitis -Trend LFTs -Ntr consult for TF -BR: Senokot -PPI #:Acute Kidney Injury (SYED) likely secondary to vasomotor nephropathy #Severe hypernatremia-improved #Urinary Retention-resolved -FeNA 0.50 indicating prerenal sate -Nephrology and CCM consulted, appreciate recommendations -Luther catheter placed for strict intake and output -Avoid nephrotoxic medication -Continue FWF -Trend BMP -Will D/C D5w due to persistent hyperglycemia -Renally dose medications -Trend BMP #ID:CAP #Leukocytrosis- resolved -Patient presented hypothemic -CXR shows increased interstitial prominence of densities in bilateral lungs -COVID-19 PCR negative -Blood culture x2 NGTD -Antibiotic therapy course ended today 04/25 -Patient remains afebrile, with no leukocytosis -Monitor WBC and fever curve -Continue to F/U on B.cult -Daily CBC monitor -Consider ID consult if febrile or/and if leukocytosis reoccur #Endo:Hyperglycemia #s/p HHNK -Transition to SubQ insulin -Continue high dose SSI Q6hrs -Basal, NPH adjsuted -D5W D/katlyn -Avoid hypoglycemia #Heme:Thrombocytopenia -Plt remains low -AC still on hold -Trend CBC -Transfuse to hemoglobin less than 7 -Monitor for bleeding -r/o DVT, BUE dopplar neg -SCD to bilateral lower extremities while in bed The high probability of a clinically significant, sudden or life threatening deterioration of the [multi] system(s) required my full and direct attention, intervention and personal management. The aggregate critical care time was [60] minutes. This time is in addition to time spent performing reported procedures but includes the following: [x] Data Review and interpretation [x] Patient assessment and monitoring of vital signs [x] Documentation [x] Medication orders and management Disposition Plan: ICU Total Time Spent with Patient (Minutes): 60 History Interval history: Patient seen and examined at the bedside. Patient decompensated overnight low SPO2 in the 70s, was placed on Bipap. Hospitalist Physical - Constitutional Vitals: Temp Pulse Resp BP Pulse Ox 97.4 F L 73 25 H 139/57 93 04/26/21 07:22 04/26/21 10:30 04/26/21 10:30 04/26/21 10:30 04/26/21 10:30 General appearance: Present: mild distress, other (Lying in bed unresponsive) - EENT Eyes: Present: PERRL - Respiratory Respiratory effort: labored Respiratory: bilateral: rhonchi - Cardiovascular Rhythm: regular Heart Sounds: Present: S1 & S2 - Extremities Extremities: no ischemia, pulses intact, pulses symmetrical Extremity abnormal: edema - Peripheral Assessment Generalized Edema Type: Non-pitting Edema Degree: 1+ Capillary Refill: < 3 seconds Skin Temperature: Warm Peripheral Pulses: within normal limits - Abdominal General gastrointestinal: soft, non-tender, normal bowel sounds - Integumentary Integumentary: Present: warm, dry - Psychiatric Psychiatric: other (Unresponsive) - Neurologic Neurologic: other (Unresponsive) - Allied Health Allied health notes reviewed: nursing HEART Score - HEART Score Troponin: Troponin T 0.021 ng/mL (0.00-0.029) 04/20/21 17:10 Results - Labs CBC & Chem 7: 04/26/21 09:33 04/26/21 09:33 Labs: Laboratory Last Values WBC 6.4 K/mm3 (4.5-11.0) 04/26/21 09:33 RBC 3.89 M/mm3 (3.65-5.03) 04/26/21 09:33 Hgb 10.5 gm/dl (10.1-14.3) 04/26/21 09:33 Hct 34.3 % (30.3-42.9) 04/26/21 09:33 MCV 88 fl (79-97) 04/26/21 09:33 MCH 27 pg (28-32) L 04/26/21 09:33 MCHC 31 % (30-34) 04/26/21 09:33 RDW 16.9 % (13.2-15.2) H 04/26/21 09:33 Plt Count 58 K/mm3 (140-440) L 04/26/21 09:33 Add Manual Diff Complete 04/26/21 09:33 Total Counted 100 04/26/21 09:33 Seg Neutrophils % Keying Machine Operator 04/26/21 09:33 Seg Neuts % (Manual) 77.0 % (40.0-70.0) H 04/26/21 09:33 Band Neutrophils % 17.0 % 04/26/21 09:33 Lymphocytes % (Manual) 4.0 % (13.4-35.0) L 04/26/21 09:33 Monocytes % (Manual) 1.0 % (0.0-7.3) 04/26/21 09:33 Eosinophils % (Manual) 1.0 % (0.0-4.3) 04/26/21 09:33 Metamyelocytes % 1.0 % 04/25/21 05:45 Myelocytes % 8.0 % 04/23/21 08:13 Nucleated RBC % 2.0 % (0.0-0.9) H 04/26/21 09:33 Seg Neutrophils # Man 4.9 K/mm3 (1.8-7.7) 04/26/21 09:33 Band Neutrophils # 1.1 K/mm3 04/26/21 09:33 Lymphocytes # (Manual) 0.3 K/mm3 (1.2-5.4) L 04/26/21 09:33 Abs React Lymphs (Man) 0.0 K/mm3 04/26/21 09:33 Monocytes # (Manual) 0.1 K/mm3 (0.0-0.8) 04/26/21 09:33 Eosinophils # (Manual) 0.1 K/mm3 (0.0-0.4) 04/26/21 09:33 Basophils # (Manual) 0.0 K/mm3 (0.0-0.1) 04/26/21 09:33 Metamyelocytes # 0.0 K/mm3 04/26/21 09:33 Myelocytes # 0.0 K/mm3 04/26/21 09:33 Promyelocytes # 0.0 K/mm3 04/26/21 09:33 Blast Cells # 0.0 K/mm3 04/26/21 09:33 WBC Morphology Not Reportable 04/26/21 09:33 Hypersegmented Neuts Not Reportable 04/26/21 09:33 Hyposegmented Neuts Not Reportable 04/26/21 09:33 Hypogranular Neuts Not Reportable 04/26/21 09:33 Smudge Cells Not Reportable 04/26/21 09:33 Toxic Granulation Not Reportable 04/26/21 09:33 Toxic Vacuolation Not Reportable 04/26/21 09:33 Dohle Bodies Not Reportable 04/26/21 09:33 Pelger-Huet Anomaly Not Reportable 04/26/21 09:33 Moni Rods Not Reportable 04/26/21 09:33 Platelet Estimate Cons 04/26/21 09:33 Clumped Platelets Not Reportable 04/26/21 09:33 Plt Clumps, EDTA Not Reportable 04/26/21 09:33 Large Platelets Few 04/26/21 09:33 Giant Platelets Not Reportable 04/26/21 09:33 Platelet Satelliting Not Reportable 04/26/21 09:33 Plt Morphology Comment Not Reportable 04/26/21 09:33 RBC Morphology Not Reportable 04/26/21 09:33 Dimorphic RBCs Not Reportable 04/26/21 09:33 Polychromasia Not Reportable 04/26/21 09:33 Hypochromasia Not Reportable 04/26/21 09:33 Poikilocytosis 1+ 04/26/21 09:33 Anisocytosis 1+ 04/26/21 09:33 Microcytosis Not Reportable 04/26/21 09:33 Macrocytosis Not Reportable 04/26/21 09:33 Spherocytes Not Reportable 04/26/21 09:33 Pappenheimer Bodies Not Reportable 04/26/21 09:33 Sickle Cells Not Reportable 04/26/21 09:33 Target Cells Not Reportable 04/26/21 09:33 Tear Drop Cells Not Reportable 04/26/21 09:33 Ovalocytes Not Reportable 04/26/21 09:33 Helmet Cells Not Reportable 04/26/21 09:33 Parkinson[place] Bodies Not Reportable 04/26/21 09:33 [place] Rings Not Reportable 04/26/21 09:33 Salvador Cells 1+ 04/26/21 09:33 Bite Cells Not Reportable 04/26/21 09:33 Crenated Cell Not Reportable 04/26/21 09:33 Elliptocytes Not Reportable 04/26/21 09:33 Acanthocytes (Spur) Not Reportable 04/26/21 09:33 Rouleaux Not Reportable 04/26/21 09:33 Hemoglobin C Crystals Not Reportable 04/26/21 09:33 Schistocytes Not Reportable 04/26/21 09:33 Malaria parasites Not Reportable 04/26/21 09:33 Herrera Bodies Not Reportable 04/26/21 09:33 Hem Pathologist Commnt No 04/26/21 09:33 ABG pH 7.486 pH Units (7.350-7.450) H 04/21/21 15:47 ABG pCO2 31.6 mm Hg 04/21/21 15:47 ABG pO2 168.1 mm Hg (80.0-90.0) H 04/21/21 15:47 ABG HCO3 23.3 mmol/L (20.0-26.0) 04/21/21 15:47 ABG O2 Saturation 99.1 % (95.0-99.0) H 04/21/21 15:47 ABG O2 Content 12.7 (0.0-44) 04/21/21 15:47 ABG Base Excess 0.3 mmol/L (-2.0-3.0) 04/21/21 15:47 ABG Hemoglobin 8.9 gm/dl (12.0-16.0) L 04/21/21 15:47 ABG Carboxyhemoglobin 1.0 % (0.0-5.0) 04/21/21 15:47 ABG Methemoglobin 0.6 % (0.0-1.5) 04/21/21 15:47 VBG pH 7.397 (7.320-7.420) 04/20/21 17:10 Oxyhemoglobin 97.5 % (95.0-99.0) 04/21/21 15:47 FiO2 100 % 04/21/21 15:47 Sodium 139 mmol/L (137-145) D 04/26/21 09:33 Potassium 4.3 mmol/L (3.6-5.0) 04/26/21 09:33 Chloride 105.3 mmol/L (98-107) 04/26/21 09:33 Carbon Dioxide 19 mmol/L (22-30) L 04/26/21 09:33 Anion Gap 19 mmol/L 04/26/21 09:33 BUN 98 mg/dL (7-17) H 04/26/21 09:33 Creatinine 3.8 mg/dL (0.6-1.2) H 04/26/21 09:33 Estimated GFR 14 ml/min 04/26/21 09:33 BUN/Creatinine Ratio 26 % 04/26/21 09:33 Glucose 530 mg/dL (65-100) H* 04/26/21 09:33 POC Glucose 454 mg/dL (70-105) H 04/26/21 09:13 Hemoglobin A1c 17.1 % (4-6) H 04/22/21 15:55 Lactic Acid 1.90 mmol/L (0.7-2.0) 04/20/21 19:56 Calcium 8.1 mg/dL (8.4-10.2) L 04/26/21 09:33 Phosphorus 5.60 mg/dL (2.5-4.5) H D 04/26/21 09:33 Magnesium 2.50 mg/dL (1.7-2.3) H 04/25/21 08:11 Iron 62 ug/dL (37-170) 04/24/21 17:29 TIBC 285 mcg/dL (250-450) 04/24/21 17:29 % Saturation 21.75 % 04/24/21 17:29 Transferrin 112 mg/dl (192-382) L 04/24/21 17:29 Total Bilirubin 0.20 mg/dL (0.1-1.2) 04/26/21 09:33 AST 60 units/L (5-40) H 04/26/21 09:33 ALT 72 units/L (7-56) H 04/26/21 09:33 Alkaline Phosphatase 168 units/L (35-129) H 04/26/21 09:33 Ammonia 29.0 umol/L (25-60) 04/20/21 17:10 Total Creatine Kinase 1803 units/L (30-135) H 04/23/21 08:13 CK-MB (CK-2) 36.0 ng/mL (0.0-4.0) H 04/20/21 17:10 CK-MB (CK-2) Rel Index 0.9 (0-4) 04/20/21 17:10 Troponin T 0.021 ng/mL (0.00-0.029) 04/20/21 17:10 Total Protein 4.6 g/dL (6.3-8.2) L 04/26/21 09:33 Albumin 1.7 g/dL (3.9-5) L 04/26/21 09:33 Albumin/Globulin Ratio 0.6 % 04/26/21 09:33 TSH 6.040 mlU/mL (0.270-4.200) H 04/20/21 17:10 Free T4 0.93 ng/dL (0.76-1.46) 04/20/21 17:10 Urine Color Yellow (Yellow) 04/20/21 Unknown Urine Turbidity Slightly-cloudy (Clear) 04/20/21 Unknown Urine pH 5.0 (5.0-7.0) 04/20/21 Unknown Ur Specific [place] 1.016 (1.003-1.030) 04/20/21 Unknown Urine Protein <15 mg/dl mg/dL (Negative) 04/20/21 Unknown Urine Glucose (UA) >=500 mg/dL (Negative) 04/20/21 Unknown Urine Ketones Tr mg/dL (Negative) 04/20/21 Unknown Urine Blood Mod (Negative) 04/20/21 Unknown Urine Nitrite Neg (Negative) 04/20/21 Unknown Urine Bilirubin Neg (Negative) 04/20/21 Unknown Urine Urobilinogen < 2.0 mg/dL (<2.0) 04/20/21 Unknown Ur Leukocyte Esterase Neg (Negative) 04/20/21 Unknown Urine WBC (Auto) 3.0 /HPF (0.0-6.0) 04/20/21 Unknown Urine RBC (Auto) 1.0 /HPF (0.0-6.0) 04/20/21 Unknown Urine Mucus Few /HPF 04/20/21 Unknown Urine Osmolality 446 Mosm/kg 04/21/21 08:01 Urine Creatinine 44.3 mg/dL (0.1-20.0) H 04/21/21 08:01 Urine Sodium 71 mmol/L 04/21/21 08:01 Urine Total Protein 12 mg/dL (5-11.8) H 04/21/21 08:01 Plasma/Serum Alcohol < 0.01 % (0-0.07) 04/20/21 17:10 Coronavirus (PCR) Negative (Negative) 04/21/21 Unknown Microbiology: Microbiology 04/21/21 14:04 Peripheral/Venous Blood Culture - Preliminary NO GROWTH AFTER 4 DAYS 04/21/21 14:04 Peripheral/Venous Blood Culture - Preliminary NO GROWTH AFTER 4 DAYS Luther/IV: Voiding Method Indwelling Catheter Active Medications - Current Medications Current Medications: Generic Name Dose Route Start Last Admin Trade Name Freq PRN Reason Stop Dose Admin Acetaminophen 650 mg 04/20/21 21:31 Acetaminophen 325 Mg Tab PO Q4H PRN Pain MILD(1-3)/Fever >100.5/TURCIOS Albuterol 2.5 mg 04/22/21 14:49 04/23/21 15:18 Albuterol 2.5 Mg/3 Ml Nebu IH 2.5 mg Q4HRT PRN Administration Shortness Of Breath Lipase/Protease/Amylase 1 each 04/25/21 14:13 Lipase 10,500/Protease 25,000/Amylase 43,750 (Units) Dr Vasquez FEEDTUBE PRN PRN For Clogged Feeding Tube Dextrose 50 ml 04/24/21 11:36 Dextrose 50% In Water (25gm) 50 Ml Syringe IV Q30MIN PRN Hypoglycemia Protocol Famotidine 10 mg 04/26/21 22:00 Famotidine 20 Mg/2 Ml Inj IV BID AZIZA Hydralazine HCl 10 mg 04/24/21 21:22 Hydralazine 20 Mg/1 Ml Inj IV Q4HR PRN elevated BP Hydrophilic Ointment 1 applic 01/04/22 11:16 Lip Therapy Vaseline TP Q2HR PRN Dry Lips Sodium Chloride 1,000 mls @ 999 mls/hr 04/26/21 12:00 Nacl 0.9% 1000 Ml IV 04/26/21 13:01 ONCE AZIZA Insulin Human Lispro 0 unit 04/25/21 18:00 04/26/21 06:47 Insulin Lispro 100 Unit/Ml SUB-Q 10 unit Q6HR AZIZA Administration Protocol Insulin Human NPH 30 unit 04/26/21 10:00 04/26/21 09:11 Insulin Nph, Human 100 Unit/1 Ml SUB-Q 30 unit Q12HR AZIZA Administration Lorazepam 1 mg 04/26/21 11:15 Lorazepam 2 Mg/Ml Vial IV Q4H PRN Sedation Metoclopramide HCl 5 mg 04/20/21 21:31 Metoclopramide 10 Mg/2 Ml Inj IV Q6H PRN Nausea And Vomiting Morphine Sulfate 2 mg 04/20/21 21:31 04/26/21 09:35 Morphine 2 Mg/1 Ml Inj IV 2 mg Q4H PRN Administration Pain, Moderate (4-6) Multi-Ingred Cream/Lotion/Oil/Oint 1 applic 04/26/21 11:16 Mineral Oil/Petrolatum, White Ophth Oint 3.5 Gm OU Q4HR PRN Dry Eye(s) Ondansetron HCl 4 mg 04/20/21 21:31 Ondansetron 4 Mg/2 Ml Inj IV Q8H PRN Nausea And Vomiting Senna/Docusate Sodium 1 tab 04/26/21 22:00 Sennosides/Docusate Sodium 8.6/50 Mg Tab FEEDTUBE BID AZIAZ Simple Syrup 15 ml 04/25/21 14:13 Simple Syrup 15 Ml FEEDTUBE PRN PRN Hypoglycemia Simple Syrup 30 ml 04/25/21 14:13 Simple Syrup 15 Ml FEEDTUBE PRN PRN Hypoglycemia Sodium Bicarbonate 325 mg 04/25/21 14:13 Sodium Bicarbonate 325 Mg Tab FEEDTUBE PRN PRN For Clogged Feeding Tube Sodium Chloride 10 ml 04/20/21 22:00 04/26/21 09:11 Sodium Chloride 0.9% 10 Ml Flush Syringe IV 10 ml BID AZIZA Administration Sodium Chloride 10 ml 12/29/21 21:31 Sodium Chloride 0.9% 10 Ml Flush Syringe IV PRN PRN LINE FLUSH Nutrition/Malnutrition Assess - Dietary Evaluation Nutrition/Malnutrition Findings: Nutrition Notes Start: 04/21/21 12:15 Freq: Status: Active Protocol: Document 04/25/21 14:02 TAMMY (Rec: 04/25/21 14:13 [email or web address] [id number]) Nutrition Notes Initial or Follow up Reassessment Current Diagnosis Acute Kidney Injury, Hyperlipidemia Other Pertinent Diagnosis Acute metabolic encephalopathy , Dehydration, Hyperosmolar non-ketotic state Current Diet TF - Nepro at 27ml/hr Labs/Tests Na 148 BUN 83 Cr 3.6 BG 247 Elevated LFTs A1C 17.1 Pertinent Medications D5 at 125ml/hr, Insulin gtt Height 5 ft 2 in Weight 72.4 kg [place] Body Weight (kg) 50.00 BMI 29.2 Weight change and time frame Current wt obtained from bed scale Weight Status Overweight Subjective/Other Information Pt with bilat UE edema with weeping blisters. Per nephrology, no indication for renal replacement therapy at this time. Rectal tube in place. Observed TF infusing at goal rate and tolerating. Burn Absent Trauma Absent #1 Nutrition Diagnosis Inadequate oral intake Diagnosis Progress(for reassessment Continues documentation) Is patient on ventilator? No Is Patient Ambulatory and/or Out of Bed No REE-([facility]-confined to bed) [phone] Calculation Used for Recommendations [facility] Additional Notes Pro needs 1.2-2g/k-145g/ day Fluid needs 1ml/kcal Nutrition Intervention Nutrition Support: Change TF formula to Vital AF 1.2 at 45ml/hr with 200ml water flush q4h or per MD order. Provides 1823mg K and 1367mg Na. When hypernatremia resolved, 70ml water flush q4h. Kcal 1,296 Protein (gm) 81 Carbohydrates (gm) 119 Fat (gm) 58 Fluid (mL) 876 Fiber (gm) 6 Goal #1 TF tolerance Goal #2 TF to meet at least 75% energy and pro needs Goal #3 Improved BG control Follow-Up By: 04/27/21 Additional Comments F/U: TF formula change and tolerance, renal function, Na lab/water flushes <RUPAL VIZCAINO - Last Filed: 04/27/21 07:27> Assessment and Plan Assessment and plan: I saw and evaluated the patient. I agree with the findings and the plan of care as documented in the Nurse Practitioner's~note, with the following corrections and additions. Hospitalist Physical - Constitutional Vitals: Temp Pulse Resp BP Pulse Ox 97.6 F 60 22 87/43 100 04/27/21 04:00 04/27/21 07:00 04/27/21 07:00 04/27/21 07:00 04/27/21 07:00 HEART Score - HEART Score Troponin: Troponin T 0.021 ng/mL (0.00-0.029) 04/20/21 17:10 Results - Labs CBC & Chem 7: 04/26/21 09:33 04/26/21 09:33 Labs: Laboratory Last Values WBC 6.4 K/mm3 (4.5-11.0) 04/26/21 09:33 RBC 3.89 M/mm3 (3.65-5.03) 04/26/21 09:33 Hgb 10.5 gm/dl (10.1-14.3) 04/26/21 09:33 Hct 34.3 % (30.3-42.9) 04/26/21 09:33 MCV 88 fl (79-97) 04/26/21 09:33 MCH 27 pg (28-32) L 04/26/21 09:33 MCHC 31 % (30-34) 04/26/21 09:33 RDW 16.9 % (13.2-15.2) H 04/26/21 09:33 Plt Count 58 K/mm3 (140-440) L 04/26/21 09:33 Add Manual Diff Complete 04/26/21 09:33 Total Counted 100 04/26/21 09:33 Seg Neutrophils % Keying Machine Operator 04/26/21 09:33 Seg Neuts % (Manual) 77.0 % (40.0-70.0) H 04/26/21 09:33 Band Neutrophils % 17.0 % 04/26/21 09:33 Lymphocytes % (Manual) 4.0 % (13.4-35.0) L 04/26/21 09:33 Monocytes % (Manual) 1.0 % (0.0-7.3) 04/26/21 09:33 Eosinophils % (Manual) 1.0 % (0.0-4.3) 04/26/21 09:33 Metamyelocytes % 1.0 % 04/25/21 05:45 Myelocytes % 8.0 % 04/23/21 08:13 Nucleated RBC % 2.0 % (0.0-0.9) H 04/26/21 09:33 Seg Neutrophils # Man 4.9 K/mm3 (1.8-7.7) 04/26/21 09:33 Band Neutrophils # 1.1 K/mm3 04/26/21 09:33 Lymphocytes # (Manual) 0.3 K/mm3 (1.2-5.4) L 04/26/21 09:33 Abs React Lymphs (Man) 0.0 K/mm3 04/26/21 09:33 Monocytes # (Manual) 0.1 K/mm3 (0.0-0.8) 04/26/21 09:33 Eosinophils # (Manual) 0.1 K/mm3 (0.0-0.4) 04/26/21 09:33 Basophils # (Manual) 0.0 K/mm3 (0.0-0.1) 04/26/21 09:33 Metamyelocytes # 0.0 K/mm3 04/26/21 09:33 Myelocytes # 0.0 K/mm3 04/26/21 09:33 Promyelocytes # 0.0 K/mm3 04/26/21 09:33 Blast Cells # 0.0 K/mm3 04/26/21 09:33 WBC Morphology Not Reportable 04/26/21 09:33 Hypersegmented Neuts Not Reportable 04/26/21 09:33 Hyposegmented Neuts Not Reportable 04/26/21 09:33 Hypogranular Neuts Not Reportable 04/26/21 09:33 Smudge Cells Not Reportable 04/26/21 09:33 Toxic Granulation Not Reportable 04/26/21 09:33 Toxic Vacuolation Not Reportable 04/26/21 09:33 Dohle Bodies Not Reportable 04/26/21 09:33 Pelger-Huet Anomaly Not Reportable 04/26/21 09:33 Moni Rods Not Reportable 04/26/21 09:33 Platelet Estimate Cons 04/26/21 09:33 Clumped Platelets Not Reportable 04/26/21 09:33 Plt Clumps, EDTA Not Reportable 04/26/21 09:33 Large Platelets Few 04/26/21 09:33 Giant Platelets Not Reportable 04/26/21 09:33 Platelet Satelliting Not Reportable 04/26/21 09:33 Plt Morphology Comment Not Reportable 04/26/21 09:33 RBC Morphology Not Reportable 04/26/21 09:33 Dimorphic RBCs Not Reportable 04/26/21 09:33 Polychromasia Not Reportable 04/26/21 09:33 Hypochromasia Not Reportable 04/26/21 09:33 Poikilocytosis 1+ 04/26/21 09:33 Anisocytosis 1+ 04/26/21 09:33 Microcytosis Not Reportable 04/26/21 09:33 Macrocytosis Not Reportable 04/26/21 09:33 Spherocytes Not Reportable 04/26/21 09:33 Pappenheimer Bodies Not Reportable 04/26/21 09:33 Sickle Cells Not Reportable 04/26/21 09:33 Target Cells Not Reportable 04/26/21 09:33 Tear Drop Cells Not Reportable 04/26/21 09:33 Ovalocytes Not Reportable 04/26/21 09:33 Helmet Cells Not Reportable 04/26/21 09:33 Parkinson[place] Bodies Not Reportable 04/26/21 09:33 [place] Rings Not Reportable 04/26/21 09:33 [place] Cells 1+ 04/26/21 09:33 Bite Cells Not Reportable 04/26/21 09:33 Crenated Cell Not Reportable 04/26/21 09:33 Elliptocytes Not Reportable 04/26/21 09:33 Acanthocytes (Spur) Not Reportable 04/26/21 09:33 Rouleaux Not Reportable 04/26/21 09:33 Hemoglobin C Crystals Not Reportable 04/26/21 09:33 Schistocytes Not Reportable 04/26/21 09:33 Malaria parasites Not Reportable 04/26/21 09:33 Herrera Bodies Not Reportable 04/26/21 09:33 Hem Pathologist Commnt No 04/26/21 09:33 ABG pH 7.275 (7.320-7.450) L 04/26/21 15:39 POC ABG pCO2 40.8 mmHg (32.0-48.0) 04/26/21 15:39 ABG pCO2 31.6 mm Hg 04/21/21 15:47 POC ABG pO2 63.4 mmHg (83-108) L 04/26/21 15:39 ABG pO2 168.1 mm Hg (80.0-90.0) H 04/21/21 15:47 POC ABG HCO3 18.5 04/26/21 15:39 ABG HCO3 23.3 mmol/L (20.0-26.0) 04/21/21 15:47 ABG O2 Saturation 90.2 (0-100) 04/26/21 15:39 ABG O2 Content 12.7 (0.0-44) 04/21/21 15:47 POC ABG Base Excess -7.7 04/26/21 15:39 ABG Base Excess 0.3 mmol/L (-2.0-3.0) 04/21/21 15:47 ABG Hemoglobin 8.4 (12.0-17.5) L 04/26/21 15:39 ABG Oxyhemoglobin 89.5 (94-98) L 04/26/21 15:39 ABG Carboxyhemoglobin 1.0 % (0.0-5.0) 04/21/21 15:47 ABG Methemoglobin 0.3 (0.0-1.5) 04/26/21 15:39 ABG Sodium 137.7 mmol/L (136.0-145.0) 04/26/21 15:39 ABG Potassium 4.1 mmol/L (3.40-4.50) 04/26/21 15:39 ABG Chloride 108.0 mmol/L (98-107) H 04/26/21 15:39 ABG Glucose 404 mg/dL (65-95) H 04/26/21 15:39 VBG pH 7.397 (7.320-7.420) 04/20/21 17:10 Oxyhemoglobin 97.5 % (95.0-99.0) 04/21/21 15:47 Carboxyhemoglobin 0.5 (0.5-1.5) 04/26/21 15:39 FiO2 100 % 04/21/21 15:47 FiO2 % 100 04/26/21 15:39 Sodium 139 mmol/L (137-145) D 04/26/21 09:33 Potassium 4.3 mmol/L (3.6-5.0) 04/26/21 09:33 Chloride 105.3 mmol/L (98-107) 04/26/21 09:33 Carbon Dioxide 19 mmol/L (22-30) L 04/26/21 09:33 Anion Gap 19 mmol/L 04/26/21 09:33 BUN 98 mg/dL (7-17) H 04/26/21 09:33 Creatinine 3.8 mg/dL (0.6-1.2) H 04/26/21 09:33 Estimated GFR 14 ml/min 04/26/21 09:33 BUN/Creatinine Ratio 26 % 04/26/21 09:33 Glucose 530 mg/dL (65-100) H* 04/26/21 09:33 POC Glucose 187 mg/dL (70-105) H 04/27/21 06:23 Hemoglobin A1c 17.1 % (4-6) H 04/22/21 15:55 Lactic Acid 1.90 mmol/L (0.7-2.0) 04/20/21 19:56 Calcium 8.1 mg/dL (8.4-10.2) L 04/26/21 09:33 Phosphorus 5.60 mg/dL (2.5-4.5) H D 04/26/21 09:33 Magnesium 2.50 mg/dL (1.7-2.3) H 04/25/21 08:11 Iron 62 ug/dL (37-170) 04/24/21 17:29 TIBC 285 mcg/dL (250-450) 04/24/21 17:29 % Saturation 21.75 % 04/24/21 17:29 Transferrin 112 mg/dl (192-382) L 04/24/21 17:29 Total Bilirubin 0.20 mg/dL (0.1-1.2) 04/26/21 09:33 AST 60 units/L (5-40) H 04/26/21 09:33 ALT 72 units/L (7-56) H 04/26/21 09:33 Alkaline Phosphatase 168 units/L (35-129) H 04/26/21 09:33 Ammonia 29.0 umol/L (25-60) 04/20/21 17:10 Total Creatine Kinase 1803 units/L (30-135) H 04/23/21 08:13 CK-MB (CK-2) 36.0 ng/mL (0.0-4.0) H 04/20/21 17:10 CK-MB (CK-2) Rel Index 0.9 (0-4) 04/20/21 17:10 Troponin T 0.021 ng/mL (0.00-0.029) 04/20/21 17:10 Total Protein 4.6 g/dL (6.3-8.2) L 04/26/21 09:33 Albumin 1.7 g/dL (3.9-5) L 04/26/21 09:33 Albumin/Globulin Ratio 0.6 % 04/26/21 09:33 TSH 6.040 mlU/mL (0.270-4.200) H 04/20/21 17:10 Free T4 0.93 ng/dL (0.76-1.46) 04/20/21 17:10 Arterial Blood Glucose 404 mg/dL (65-95) H 04/26/21 15:39 Urine Color Yellow (Yellow) 04/20/21 Unknown Urine Turbidity Slightly-cloudy (Clear) 04/20/21 Unknown Urine pH 5.0 (5.0-7.0) 04/20/21 Unknown Ur Specific [place] 1.016 (1.003-1.030) 04/20/21 Unknown Urine Protein <15 mg/dl mg/dL (Negative) 04/20/21 Unknown Urine Glucose (UA) >=500 mg/dL (Negative) 04/20/21 Unknown Urine Ketones Tr mg/dL (Negative) 04/20/21 Unknown Urine Blood Mod (Negative) 04/20/21 Unknown Urine Nitrite Neg (Negative) 04/20/21 Unknown Urine Bilirubin Neg (Negative) 04/20/21 Unknown Urine Urobilinogen < 2.0 mg/dL (<2.0) 04/20/21 Unknown Ur Leukocyte Esterase Neg (Negative) 04/20/21 Unknown Urine WBC (Auto) 3.0 /HPF (0.0-6.0) 04/20/21 Unknown Urine RBC (Auto) 1.0 /HPF (0.0-6.0) 04/20/21 Unknown Urine Mucus Few /HPF 04/20/21 Unknown Urine Osmolality 446 Mosm/kg 04/21/21 08:01 Urine Creatinine 44.3 mg/dL (0.1-20.0) H 04/21/21 08:01 Urine Sodium 71 mmol/L 04/21/21 08:01 Urine Total Protein 12 mg/dL (5-11.8) H 04/21/21 08:01 Plasma/Serum Alcohol < 0.01 % (0-0.07) 04/20/21 17:10 Coronavirus (PCR) Negative (Negative) 04/21/21 Unknown Microbiology: Microbiology 04/26/21 14:50 Tracheal Aspirate Sputum Culture - Preliminary 04/21/21 14:04 Peripheral/Venous Blood Culture - Final NO GROWTH AFTER 5 DAYS 04/21/21 14:04 Peripheral/Venous Blood Culture - Final NO GROWTH AFTER 5 DAYS Luther/IV: Voiding Method Indwelling Catheter Active Medications - Current Medications Current Medications: Generic Name Dose Route Start Last Admin Trade Name Freq PRN Reason Stop Dose Admin Acetaminophen 650 mg 04/20/21 21:31 Acetaminophen 325 Mg Tab PO Q4H PRN Pain MILD(1-3)/Fever >100.5/TURCIOS Albuterol 2.5 mg 04/22/21 14:49 04/23/21 15:18 Albuterol 2.5 Mg/3 Ml Nebu IH 2.5 mg Q4HRT PRN Administration Shortness Of Breath Lipase/Protease/Amylase 1 each 04/25/21 14:13 Lipase 10,500/Protease 25,000/Amylase 43,750 (Units) Dr Cap FEEDTUBE PRN PRN For Clogged Feeding Tube Dextrose 50 ml 04/24/21 11:36 Dextrose 50% In Water (25gm) 50 Ml Syringe IV Q30MIN PRN Hypoglycemia Protocol Famotidine 10 mg 04/26/21 22:00 04/26/21 22:24 Famotidine 20 Mg/2 Ml Inj IV 10 mg BID AZIZA Administration Hydralazine HCl 10 mg 04/24/21 21:22 Hydralazine 20 Mg/1 Ml Inj IV Q4HR PRN elevated BP Hydrophilic Ointment 1 applic 04/26/21 11:16 Lip Therapy Vaseline TP Q2HR PRN Dry Lips NORepinephrine/NS 8 MG-250 ML 8 mg in 250 mls @ 3.75 mls/hr 04/26/21 16:00 04/26/21 22:26 Norepinephrine/Ns 8 Mg-250 Ml (Double Conc) IV 0 mcg/min TITRATE AZIZA 0 mls/hr Titration Protocol 2 MCG/MIN Insulin Human Lispro 0 unit 04/25/21 18:00 04/27/21 06:35 Insulin Lispro 100 Unit/Ml SUB-Q 4 unit Q6HR AZIZA Administration Protocol Insulin Human NPH 30 unit 04/26/21 10:00 04/26/21 22:25 Insulin Nph, Human 100 Unit/1 Ml SUB-Q 30 unit Q12HR AZIZA Administration Lidocaine 10 ml 04/26/21 19:23 04/26/21 19:54 Lidocaine (1%) 10 Mg/1 Ml Vial 20 Ml Mdv INFILTRATI 10 ml ONCE AZIZA Administration Lorazepam 1 mg 04/26/21 11:15 Lorazepam 2 Mg/Ml Vial IV Q4H PRN Sedation Metoclopramide HCl 5 mg 04/20/21 21:31 Metoclopramide 10 Mg/2 Ml Inj IV Q6H PRN Nausea And Vomiting Morphine Sulfate 2 mg 04/20/21 21:31 04/26/21 09:35 Morphine 2 Mg/1 Ml Inj IV 2 mg Q4H PRN Administration Pain, Moderate (4-6) Multi-Ingred Cream/Lotion/Oil/Oint 1 applic 04/26/21 11:16 Mineral Oil/Petrolatum, White Ophth Oint 3.5 Gm OU Q4HR PRN Dry Eye(s) Ondansetron HCl 4 mg 04/20/21 21:31 Ondansetron 4 Mg/2 Ml Inj IV Q8H PRN Nausea And Vomiting Senna/Docusate Sodium 1 tab 04/26/21 22:00 04/26/21 22:24 Sennosides/Docusate Sodium 8.6/50 Mg Tab FEEDTUBE 1 tab BID AZIZA Administration Simple Syrup 15 ml 04/25/21 14:13 Simple Syrup 15 Ml FEEDTUBE PRN PRN Hypoglycemia Simple Syrup 30 ml 04/25/21 14:13 Simple Syrup 15 Ml FEEDTUBE PRN PRN Hypoglycemia Sodium Bicarbonate 325 mg 04/25/21 14:13 Sodium Bicarbonate 325 Mg Tab FEEDTUBE PRN PRN For Clogged Feeding Tube Sodium Chloride 10 ml 04/20/21 22:00 04/26/21 22:26 Sodium Chloride 0.9% 10 Ml Flush Syringe IV 10 ml BID AZIZA Administration Sodium Chloride 10 ml 04/20/21 21:31 Sodium Chloride 0.9% 10 Ml Flush Syringe IV PRN PRN LINE FLUSH Nutrition/Malnutrition Assess - Dietary Evaluation Nutrition/Malnutrition Findings: Nutrition Notes Start: 04/21/21 12:15 Freq: Status: Active Protocol: Document 04/25/21 14:02 TAMMY (Rec: 04/25/21 14:13 TAMMY [id number]) Nutrition Notes Initial or Follow up Reassessment Current Diagnosis Acute Kidney Injury, Hyperlipidemia Other Pertinent Diagnosis Acute metabolic encephalopathy , Dehydration, Hyperosmolar non-ketotic state Current Diet TF - Nepro at 27ml/hr Labs/Tests Na 148 BUN 83 Cr 3.6 BG 247 Elevated LFTs A1C 17.1 Pertinent Medications D5 at 125ml/hr, Insulin gtt Height 5 ft 2 in Weight 72.4 kg [place] Body Weight (kg) 50.00 BMI 29.2 Weight change and time frame Current wt obtained from bed scale Weight Status Overweight Subjective/Other Information Pt with bilat UE edema with weeping blisters. Per nephrology, no indication for renal replacement therapy at this time. Rectal tube in place. Observed TF infusing at goal rate and tolerating. Burn Absent Trauma Absent #1 Nutrition Diagnosis Inadequate oral intake Diagnosis Progress(for reassessment Continues documentation) Is patient on ventilator? No Is Patient Ambulatory and/or Out of Bed No REE-([facility]-confined to bed) [phone] Calculation Used for Recommendations [facility] Additional Notes Pro needs 1.2-2g/k-145g/ day Fluid needs 1ml/kcal Nutrition Intervention Nutrition Support: Change TF formula to Vital AF 1.2 at 45ml/hr with 200ml water flush q4h or per MD order. Provides 1823mg K and 1367mg Na. When hypernatremia resolved, 70ml water flush q4h. Kcal 1,296 Protein (gm) 81 Carbohydrates (gm) 119 Fat (gm) 58 Fluid (mL) 876 Fiber (gm) 6 Goal #1 TF tolerance Goal #2 TF to meet at least 75% energy and pro needs Goal #3 Improved BG control Follow-Up By: 04/27/21 Additional Comments F/U: TF formula change and tolerance, renal function, Na lab/water flushes
--- NOTE | 2021-04-26 12:18 | Progress Note ---
Assessment and Plan (1) Acute metabolic encephalopathy (2) Diabetic hyperosmolar non-ketotic state 3) SYED (acute kidney injury) (4) Dehydration (5) Hypernatremia (6) Rhabdomyolysis (7) Hypernatremia 8) GERD (gastroesophageal reflux disease) (9) Metabolic acidosis (10) Leukocytosis D5W stopped as Na better and blood sugar high. Na trending down Cr high but stable, Monitor. UA bland will cont to monitor CK, trending down renally dose meds Strict I&O In ICU Subjective Date of service: 04/26/21 Principal diagnosis: Acute respiratory failure Interval history: Making urine. Na better. In ICU. making urine. Objective - Exam Narrative Exam: General appearance: cachectic EENT: mucous membranes dry Neck: Present: neck supple Respiratory: Decreased Breath Sounds Heart: tachycardia Gastrointestinal: Present: normoactive bowel sounds. Absent: tenderness, distended, masses Integumentary: no rash, warm and dry Neurologic: other (does not follow commands) Musculoskeletal: Present: other (no edema in BLE) - Vital Signs Vital signs: Vital Signs - 12hr 04/26/21 04/26/21 04/26/21 00:30 00:45 01:00 Temperature Pulse Rate 65 69 73 Pulse Rate [ Right Radial] Respiratory 31 H 31 H 31 H Rate Blood Pressure 109/48 109/48 119/54 O2 Sat by Pulse 99 98 98 Oximetry 04/26/21 04/26/21 04/26/21 01:15 01:30 01:45 Temperature Pulse Rate 81 79 77 Pulse Rate [ Right Radial] Respiratory 23 33 H 32 H Rate Blood Pressure 119/54 115/54 115/54 O2 Sat by Pulse 98 95 94 Oximetry 04/26/21 04/26/21 04/26/21 02:00 02:15 02:30 Temperature Pulse Rate 78 79 74 Pulse Rate [ Right Radial] Respiratory 28 H 34 H 27 H Rate Blood Pressure 121/54 121/54 107/50 O2 Sat by Pulse 97 96 94 Oximetry 04/26/21 04/26/21 04/26/21 02:45 03:00 03:15 Temperature Pulse Rate 74 65 70 Pulse Rate [ Right Radial] Respiratory 27 H 28 H 29 H Rate Blood Pressure 107/50 109/48 109/48 O2 Sat by Pulse 96 96 94 Oximetry 04/26/21 04/26/21 04/26/21 03:31 03:45 04:00 Temperature 98.2 F Pulse Rate 65 65 72 Pulse Rate [ 72 Right Radial] Respiratory 30 H 29 H 21 Rate Blood Pressure 91/48 91/48 133/61 O2 Sat by Pulse 96 97 100 Oximetry 04/26/21 04/26/21 04/26/21 04:15 04:30 04:45 Temperature Pulse Rate 68 79 67 Pulse Rate [ Right Radial] Respiratory 28 H 19 31 H Rate Blood Pressure 133/61 145/65 145/65 O2 Sat by Pulse 98 98 96 Oximetry 04/26/21 04/26/21 04/26/21 05:00 05:15 05:30 Temperature Pulse Rate 91 H 89 91 H Pulse Rate [ Right Radial] Respiratory 34 H 29 H 25 H Rate Blood Pressure 181/71 181/71 177/71 O2 Sat by Pulse 99 97 96 Oximetry 04/26/21 04/26/21 04/26/21 05:45 06:00 06:15 Temperature Pulse Rate 89 90 78 Pulse Rate [ Right Radial] Respiratory 34 H 36 H 21 Rate Blood Pressure 177/71 145/82 145/82 O2 Sat by Pulse 95 94 95 Oximetry 04/26/21 04/26/21 04/26/21 06:30 06:45 07:01 Temperature Pulse Rate 84 74 79 Pulse Rate [ Right Radial] Respiratory 31 H 22 33 H Rate Blood Pressure 135/76 135/76 144/55 O2 Sat by Pulse 93 96 95 Oximetry 04/26/21 04/26/21 04/26/21 07:15 07:22 07:31 Temperature 97.4 F L Pulse Rate 81 82 Pulse Rate [ Right Radial] Respiratory 28 H 27 H Rate Blood Pressure 144/55 132/69 O2 Sat by Pulse 95 94 Oximetry 04/26/21 04/26/21 04/26/21 07:45 08:00 08:15 Temperature Pulse Rate 77 77 79 Pulse Rate [ Right Radial] Respiratory 26 H 27 H 27 H Rate Blood Pressure 132/69 147/63 147/63 O2 Sat by Pulse 95 96 97 Oximetry 04/26/21 04/26/21 04/26/21 08:30 08:45 09:01 Temperature Pulse Rate 85 79 73 Pulse Rate [ Right Radial] Respiratory 27 H 25 H 26 H Rate Blood Pressure 152/68 152/68 164/64 O2 Sat by Pulse 96 94 95 Oximetry 04/26/21 04/26/21 04/26/21 09:15 09:30 09:45 Temperature Pulse Rate 81 77 73 Pulse Rate [ Right Radial] Respiratory 24 24 25 H Rate Blood Pressure 164/64 150/57 150/57 O2 Sat by Pulse 95 94 93 Oximetry 04/26/21 04/26/21 04/26/21 10:00 10:15 10:30 Temperature Pulse Rate 77 71 73 Pulse Rate [ Right Radial] Respiratory 32 H 24 25 H Rate Blood Pressure 150/57 152/55 139/57 O2 Sat by Pulse 93 93 93 Oximetry - Lab 04/26/21 09:33 04/26/21 09:33 Most recent lab results ABG pH 7.486 pH Units (7.350-7.450) H 04/21/21 15:47 ABG pCO2 31.6 mm Hg 04/21/21 15:47 ABG pO2 168.1 mm Hg (80.0-90.0) H 04/21/21 15:47 ABG HCO3 23.3 mmol/L (20.0-26.0) 04/21/21 15:47 ABG O2 Saturation 99.1 % (95.0-99.0) H 04/21/21 15:47 Calcium 8.1 mg/dL (8.4-10.2) L 04/26/21 09:33 Phosphorus 5.60 mg/dL (2.5-4.5) H D 04/26/21 09:33 Magnesium 2.50 mg/dL (1.7-2.3) H 04/25/21 08:11 Urine Creatinine 44.3 mg/dL (0.1-20.0) H 04/21/21 08:01 Urine Sodium 71 mmol/L 04/21/21 08:01 Urine Total Protein 12 mg/dL (5-11.8) H 04/21/21 08:01 Medications & Allergies - Medications Allergies/Adverse Reactions: Allergies No Known Allergies Allergy (Unverified 04/20/21 14:35) Active Medications: Generic Name Dose Route Start Last Admin Trade Name Freq PRN Reason Stop Dose Admin Acetaminophen 650 mg 04/20/21 21:31 Acetaminophen 325 Mg Tab PO Q4H PRN Pain MILD(1-3)/Fever >100.5/TURCIOS Albuterol 2.5 mg 04/22/21 14:49 04/23/21 15:18 Albuterol 2.5 Mg/3 Ml Nebu IH 2.5 mg Q4HRT PRN Administration Shortness Of Breath Lipase/Protease/Amylase 1 each 04/25/21 14:13 Lipase 10,500/Protease 25,000/Amylase 43,750 (Units) Dr Vasquez FEEDTUBE PRN PRN For Clogged Feeding Tube Dextrose 50 ml 04/24/21 11:36 Dextrose 50% In Water (25gm) 50 Ml Syringe IV Q30MIN PRN Hypoglycemia Protocol Famotidine 10 mg 04/26/21 22:00 Famotidine 20 Mg/2 Ml Inj IV BID AZIZA Hydralazine HCl 10 mg 04/24/21 21:22 Hydralazine 20 Mg/1 Ml Inj IV Q4HR PRN elevated BP Hydrophilic Ointment 1 applic 04/26/21 11:16 Lip Therapy Vaseline TP Q2HR PRN Dry Lips Sodium Chloride 1,000 mls @ 999 mls/hr 04/26/21 12:00 Nacl 0.9% 1000 Ml IV 04/26/21 13:01 ONCE AZIZA Insulin Human Lispro 0 unit 04/25/21 18:00 04/26/21 06:47 Insulin Lispro 100 Unit/Ml SUB-Q 10 unit Q6HR AZIZA Administration Protocol Insulin Human NPH 30 unit 04/26/21 10:00 04/26/21 09:11 Insulin Nph, Human 100 Unit/1 Ml SUB-Q 30 unit Q12HR AZIZA Administration Lorazepam 1 mg 04/26/21 11:15 Lorazepam 2 Mg/Ml Vial IV Q4H PRN Sedation Metoclopramide HCl 5 mg 04/20/21 21:31 Metoclopramide 10 Mg/2 Ml Inj IV Q6H PRN Nausea And Vomiting Morphine Sulfate 2 mg 04/20/21 21:31 04/26/21 09:35 Morphine 2 Mg/1 Ml Inj IV 2 mg Q4H PRN Administration Pain, Moderate (4-6) Multi-Ingred Cream/Lotion/Oil/Oint 1 applic 04/26/21 11:16 Mineral Oil/Petrolatum, White Ophth Oint 3.5 Gm OU Q4HR PRN Dry Eye(s) Ondansetron HCl 4 mg 04/20/21 21:31 Ondansetron 4 Mg/2 Ml Inj IV Q8H PRN Nausea And Vomiting Senna/Docusate Sodium 1 tab 04/26/21 22:00 Sennosides/Docusate Sodium 8.6/50 Mg Tab FEEDTUBE BID AZIZA Simple Syrup 15 ml 04/25/21 14:13 Simple Syrup 15 Ml FEEDTUBE PRN PRN Hypoglycemia Simple Syrup 30 ml 04/25/21 14:13 Simple Syrup 15 Ml FEEDTUBE PRN PRN Hypoglycemia Sodium Bicarbonate 325 mg 04/25/21 14:13 Sodium Bicarbonate 325 Mg Tab FEEDTUBE PRN PRN For Clogged Feeding Tube Sodium Chloride 10 ml 04/20/21 22:00 04/26/21 09:11 Sodium Chloride 0.9% 10 Ml Flush Syringe IV 10 ml BID AZIZA Administration Sodium Chloride 10 ml 04/20/21 21:31 Sodium Chloride 0.9% 10 Ml Flush Syringe IV PRN PRN LINE FLUSH
[2021-04-26] MEDS ORDERED: ALBUMIN HUMAN 25% (25 GM/100 ML) INJ IV ONE (13:00)
--- NOTE | 2021-04-26 13:00 | XRay Report ---
CHEST 1 VIEW 04/26/2021 12:19 PM INDICATION / CLINICAL INFORMATION: ETT placement. COMPARISON: 04/21/2021 FINDINGS: SUPPORT DEVICES: Endotracheal tube terminates 2.9 cm the heladio. The enteric tube terminates distal t o the field of view and below the diaphragm. HEART / MEDIASTINUM: No significant abnormality. LUNGS / PLEURA: Increased airspace opacities in bilateral lungs No pneumothorax. ADDITIONAL FINDINGS: No significant additional findings. IMPRESSION: 1. Multifocal pneumonia. 2. Endotracheal tube terminates 2.9 cm from heladio. Signer Name: Samir Chew DO Signed: 04/26/2021 12:56 PM Workstation Name: [id number]
--- NOTE | 2021-04-26 13:01 | XRay Report ---
ABDOMEN 1 VIEW 04/26/2021 INDICATION / CLINICAL INFORMATION: NGT placement. COMPARISON: Chest radiograph from earlier in the day FINDINGS: TUBES / LINES: Enteric tube terminates within the stomach with the side-port also within the stomach. BOWEL GAS PATTERN: No significant abnormality. FREE AIR / EXTRALUMINAL GAS: None seen. ADDITIONAL FINDINGS: Left basilar opacification, not significantly changed IMPRESSION: 1. Enteric tube terminates within the stomach with the side-port also within the stomach Signer Name: Samir Chew DO Signed: 04/26/2021 12:57 PM Workstation Name: [id number]
[2021-04-26] MEDS: NORepinephrine/NS 8 MG-250 ML 8 MG/250 ML INFUS..BTL IV SCH (16:23)
[2021-04-26] MEDS ORDERED: LIDOCAINE (1%) 10 MG/1 ML VIAL 20 ML MDV INFILTRATI SCH ×2 (19:00→19:23)
[2021-04-26] MEDS ORDERED: LIDOCAINE (1%) 10 MG/1 ML VIAL 20 ML MDV INFILTRATI ONE (19:05)
[2021-04-26] MEDS ORDERED: FAMOTIDINE 20 MG/2 ML INJ IV SCH (22:00)
[2021-04-26] MEDS: SENNOSIDES/DOCUSATE SODIUM 8.6/50 MG TAB FEEDTUBE SCH (22:24)
[2021-04-27] MEDS: INSULIN LISPRO 100 UNIT/ML SUB-Q SCH ×4 (01:11→17:51)
[2021-04-27] MEDS: FREE WATER PO SCH ×3 (01:56→10:24)
--- NOTE | 2021-04-27 03:33 | XRay Report ---
CHEST 1 VIEW INDICATION / CLINICAL INFORMATION: follow up respiratory failure. COMPARISON: 04/26/2021 FINDINGS: SUPPORT DEVICES: Stable, satisfactory device positioning. HEART / MEDIASTINUM: No significant abnormality. LUNGS / PLEURA: Prominent bilateral pulmonary opacities persist. There does appear to be some interva l improvement within the lung bases. No pneumothorax. ADDITIONAL FINDINGS: No significant additional findings. IMPRESSION: 1. Slight improvement in the bilateral pulmonary opacities. Signer Name: Carolee Torres MD Signed: 04/27/2021 3:28 AM Workstation Name: [id number]
[2021-04-27 08:33] LABS: Albumin 1.2 g/dL (3.9-5); Calcium 8.4 mg/dL (8.4-10.2)
--- NOTE | 2021-04-27 09:23 | Progress Note ---
Assessment and Plan (1) Acute metabolic encephalopathy (2) Diabetic hyperosmolar non-ketotic state 3) SYED (acute kidney injury) (4) Dehydration (5) Hypernatremia (6) Rhabdomyolysis (7) Hypernatremia 8) GERD (gastroesophageal reflux disease) (9) Metabolic acidosis (10) Leukocytosis D5W stopped as Na better and blood sugar high. 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 He is agreeable to HD. ICU team to put in Vascath and HD ordered for afterwards. UA bland Intubated on Vent now. will cont to monitor CK, trending down renally dose meds Strict I&O In ICU Critical Care time: 36 minutes Subjective Date of service: 04/27/21 Principal diagnosis: Acute respiratory failure Interval history: Intubated on Vent now. Making sluggish urine. Objective - Exam Narrative Exam: General appearance: Intubated EENT: mucous membranes dry Neck: Present: neck supple Respiratory: Decreased Breath Sounds Heart: tachycardia Gastrointestinal: Present: normoactive bowel sounds. Absent: tenderness, distended, masses Integumentary: no rash, warm and dry Neurologic: Sedated Musculoskeletal: Present: other (no edema in BLE) - Vital Signs Vital signs: Vital Signs - 12hr 04/26/21 04/26/21 04/26/21 21:30 21:45 22:00 Temperature Pulse Rate 59 L 60 60 Pulse Rate [ From Monitor] Respiratory 26 H 21 22 Rate Blood Pressure 117/63 119/60 119/59 O2 Sat by Pulse 92 94 94 Oximetry 04/26/21 04/26/21 04/26/21 22:15 22:30 22:45 Temperature Pulse Rate 57 L 61 59 L Pulse Rate [ From Monitor] Respiratory 19 21 23 Rate Blood Pressure 119/59 120/59 102/52 O2 Sat by Pulse 93 93 92 Oximetry 04/26/21 04/26/21 04/26/21 23:01 23:15 23:30 Temperature Pulse Rate 62 58 L 60 Pulse Rate [ From Monitor] Respiratory 22 27 H 22 Rate Blood Pressure 124/57 99/54 107/55 O2 Sat by Pulse 97 93 96 Oximetry 04/26/21 04/27/21 04/27/21 23:45 00:00 00:15 Temperature 97.8 F Pulse Rate 59 L 58 L 60 Pulse Rate [ 58 L From Monitor] Respiratory 24 22 21 Rate Blood Pressure 99/55 101/53 103/54 O2 Sat by Pulse 97 100 98 Oximetry 04/27/21 04/27/21 04/27/21 00:30 00:45 01:00 Temperature Pulse Rate 60 59 L 58 L Pulse Rate [ From Monitor] Respiratory 17 14 15 Rate Blood Pressure 107/51 97/53 111/57 O2 Sat by Pulse 100 100 100 Oximetry 04/27/21 04/27/21 04/27/21 01:15 01:30 01:45 Temperature Pulse Rate 58 L 57 L 58 L Pulse Rate [ From Monitor] Respiratory 25 H 22 26 H Rate Blood Pressure 106/53 104/50 96/53 O2 Sat by Pulse 98 99 96 Oximetry 04/27/21 04/27/21 04/27/21 02:00 02:15 02:30 Temperature Pulse Rate 57 L 58 L 61 Pulse Rate [ From Monitor] Respiratory 25 H 22 18 Rate Blood Pressure 105/53 106/49 114/57 O2 Sat by Pulse 99 96 98 Oximetry 04/27/21 04/27/21 04/27/21 02:46 03:00 03:15 Temperature Pulse Rate 71 67 64 Pulse Rate [ From Monitor] Respiratory 15 16 29 H Rate Blood Pressure 114/57 151/60 128/56 O2 Sat by Pulse 94 98 98 Oximetry 04/27/21 04/27/21 04/27/21 03:16 03:17 03:30 Temperature Pulse Rate 80 69 Pulse Rate [ 72 From Monitor] Respiratory 15 24 Rate Blood Pressure 119/57 O2 Sat by Pulse 95 100 Oximetry 04/27/21 04/27/21 04/27/21 03:45 04:00 04:15 Temperature 97.6 F Pulse Rate 66 73 72 Pulse Rate [ From Monitor] Respiratory 19 19 17 Rate Blood Pressure 138/51 138/51 122/47 O2 Sat by Pulse 96 94 93 Oximetry 04/27/21 04/27/21 04/27/21 04:30 04:45 05:00 Temperature Pulse Rate 69 69 72 Pulse Rate [ From Monitor] Respiratory 17 25 H 22 Rate Blood Pressure 122/47 103/47 96/48 O2 Sat by Pulse 100 100 100 Oximetry 0104/27/21 04/27/21 05:15 05:30 05:45 Temperature Pulse Rate 69 66 65 Pulse Rate [ From Monitor] Respiratory 23 15 20 Rate Blood Pressure 115/51 105/48 100/47 O2 Sat by Pulse 100 100 100 Oximetry 04/27/21 04/27/21 04/27/21 06:00 06:15 06:30 Temperature Pulse Rate 63 60 66 Pulse Rate [ From Monitor] Respiratory 22 14 19 Rate Blood Pressure 97/44 96/42 111/48 O2 Sat by Pulse 100 100 100 Oximetry 04/27/21 04/27/21 04/27/21 06:45 07:00 07:43 Temperature 97.4 F L Pulse Rate 61 60 Pulse Rate [ From Monitor] Respiratory 21 22 Rate Blood Pressure 90/42 87/43 O2 Sat by Pulse 100 100 Oximetry 04/27/21 08:05 Temperature Pulse Rate 59 L Pulse Rate [ From Monitor] Respiratory Rate Blood Pressure 113/51 O2 Sat by Pulse 99 Oximetry - Lab 04/26/21 09:33 04/27/21 07:43 Most recent lab results ABG pH 7.309 (7.320-7.450) L 04/27/21 08:30 ABG pCO2 31.6 mm Hg 04/21/21 15:47 ABG pO2 168.1 mm Hg (80.0-90.0) H 04/21/21 15:47 ABG HCO3 23.3 mmol/L (20.0-26.0) 04/21/21 15:47 ABG O2 Saturation 93.8 (0-100) 04/27/21 08:30 Calcium 8.4 mg/dL (8.4-10.2) 04/27/21 07:43 Phosphorus 5.60 mg/dL (2.5-4.5) H D 04/26/21 09:33 Magnesium 2.50 mg/dL (1.7-2.3) H 04/25/21 08:11 Urine Creatinine 44.3 mg/dL (0.1-20.0) H 04/21/21 08:01 Urine Sodium 71 mmol/L 04/21/21 08:01 Urine Total Protein 12 mg/dL (5-11.8) H 04/21/21 08:01 Medications & Allergies - Medications Allergies/Adverse Reactions: Allergies No Known Allergies Allergy (Unverified 04/20/21 14:35) Active Medications: Generic Name Dose Route Start Last Admin Trade Name Freq PRN Reason Stop Dose Admin Acetaminophen 650 mg 04/20/21 21:31 Acetaminophen 325 Mg Tab PO Q4H PRN Pain MILD(1-3)/Fever >100.5/TURCIOS Albuterol 2.5 mg 04/22/21 14:49 04/23/21 15:18 Albuterol 2.5 Mg/3 Ml Nebu IH 2.5 mg Q4HRT PRN Administration Shortness Of Breath Lipase/Protease/Amylase 1 each 04/25/21 14:13 Lipase 10,500/Protease 25,000/Amylase 43,750 (Units) Dr Vasquez FEEDTUBE PRN PRN For Clogged Feeding Tube Dextrose 50 ml 04/24/21 11:36 Dextrose 50% In Water (25gm) 50 Ml Syringe IV Q30MIN PRN Hypoglycemia Protocol Famotidine 10 mg 04/26/21 22:00 04/26/21 22:24 Famotidine 20 Mg/2 Ml Inj IV 10 mg BID AZIZA Administration Hydralazine HCl 10 mg 04/24/21 21:22 Hydralazine 20 Mg/1 Ml Inj IV Q4HR PRN elevated BP Hydrophilic Ointment 1 applic 04/26/21 11:16 Lip Therapy Vaseline TP Q2HR PRN Dry Lips NORepinephrine/NS 8 MG-250 ML 8 mg in 250 mls @ 3.75 mls/hr 04/26/21 16:00 04/26/21 22:26 Norepinephrine/Ns 8 Mg-250 Ml (Double Conc) IV 0 mcg/min TITRATE AZIZA 0 mls/hr Titration Protocol 2 MCG/MIN Insulin Human Lispro 0 unit 04/25/21 18:00 04/27/21 06:35 Insulin Lispro 100 Unit/Ml SUB-Q 4 unit Q6HR AZIZA Administration Protocol Insulin Human NPH 30 unit 04/26/21 10:00 04/26/21 22:25 Insulin Nph, Human 100 Unit/1 Ml SUB-Q 30 unit Q12HR AZIZA Administration Lidocaine 10 ml 04/26/21 19:23 04/26/21 19:54 Lidocaine (1%) 10 Mg/1 Ml Vial 20 Ml Mdv INFILTRATI 10 ml ONCE AZIZA Administration Lorazepam 1 mg 04/26/21 11:15 Lorazepam 2 Mg/Ml Vial IV Q4H PRN Sedation Metoclopramide HCl 5 mg 04/20/21 21:31 Metoclopramide 10 Mg/2 Ml Inj IV Q6H PRN Nausea And Vomiting Morphine Sulfate 2 mg 04/20/21 21:31 04/26/21 09:35 Morphine 2 Mg/1 Ml Inj IV 2 mg Q4H PRN Administration Pain, Moderate (4-6) Multi-Ingred Cream/Lotion/Oil/Oint 1 applic 04/26/21 11:16 Mineral Oil/Petrolatum, White Ophth Oint 3.5 Gm OU Q4HR PRN Dry Eye(s) Ondansetron HCl 4 mg 04/20/21 21:31 Ondansetron 4 Mg/2 Ml Inj IV Q8H PRN Nausea And Vomiting Senna/Docusate Sodium 1 tab 04/26/21 22:00 04/26/21 22:24 Sennosides/Docusate Sodium 8.6/50 Mg Tab FEEDTUBE 1 tab BID AZIZA Administration Simple Syrup 15 ml 04/25/21 14:13 Simple Syrup 15 Ml FEEDTUBE PRN PRN Hypoglycemia Simple Syrup 30 ml 04/25/21 14:13 Simple Syrup 15 Ml FEEDTUBE PRN PRN Hypoglycemia Sodium Bicarbonate 325 mg 04/25/21 14:13 Sodium Bicarbonate 325 Mg Tab FEEDTUBE PRN PRN For Clogged Feeding Tube Sodium Chloride 10 ml 04/20/21 22:00 04/26/21 22:26 Sodium Chloride 0.9% 10 Ml Flush Syringe IV 10 ml BID AZIZA Administration Sodium Chloride 10 ml 04/20/21 21:31 Sodium Chloride 0.9% 10 Ml Flush Syringe IV PRN PRN LINE FLUSH Sodium Polystyrene Sulfonate 15 gm 04/27/21 09:21 Sodium Polystyrene 15 Gm/60 Ml Oral Liqd PO 04/27/21 09:22 ONCE ONE
[2021-04-27] MEDS ORDERED: SODIUM POLYSTYRENE 15 GM/60 ML ORAL LIQD PO SCH (10:00)
[2021-04-27] MEDS: SENNOSIDES/DOCUSATE SODIUM 8.6/50 MG TAB FEEDTUBE SCH ×2 (10:20→21:15)
[2021-04-27] MEDS: INSULIN NPH, HUMAN 100 UNIT/1 ML SUB-Q SCH ×2 (10:20→21:15)
[2021-04-27] MEDS: FAMOTIDINE 10 MG TAB FEEDTUBE SCH ×2 (10:24→21:16)
[2021-04-27] MEDS ORDERED: SODIUM CHLORIDE 0.9% 100 ML IV PRN (10:43)
[2021-04-27] MEDS: SODIUM BICARBONATE 325 MG TAB FEEDTUBE PRN (13:00)
[2021-04-27] MEDS ORDERED: fentaNYL 100 MCG/2 ML INJ ONE (13:18)
[2021-04-27] MEDS ORDERED: fentaNYL 100 MCG/2 ML INJ IV ONE ×2 (14:00)
--- NOTE | 2021-04-27 14:12 | Progress Note ---
<LISA CLIFTON - Last Filed: 04/27/21 23:43> Assessment and Plan Assessment and plan: This is a 80-year-old female, [facility] resident with past medical history of GERD, hypothyroidism, hyperlipidemia, schizophrenia and dementia admitted with hypothermia, hyponatremia, hypokalemia, lactic acidosis, acute kidney injury, rhabdomyolysis and hyperosmolar nonketotic state. Hospital Course to Date: This is a 80-year-old female who was [facility] resident at [place] with GERD, hypothyroidism, hyperlipidemia, schizophrenia and dementia presented to the emergency department on 04/20 after being found unresponsive by the staff via EMS. Per EMS glucose levels read as high. Work-up in the emergency department revealed severe hypernatremia, leukocytosis, metabolic acidosis, hyperchloremia, elevated BUN/creatinine, lactic acidosis and hyperglycemia. Patient was also hypothermic on admit. CT head showed findings suggestive of the possibility of normal pressure hydrocephalus. Patient was admitted to the hospitalist service with acute metabolic encephalopathy, diabetic hyperosmolar nonketotic state, acute kidney injury, hypernatremia, rhabdomyolysis and leukocytosis with consults to nephrology and CCM. 04/21: Given 1 L LR bolus per nephrology and D5W increased to 125 mL's per hour, COVID-19 PCR pending, CXR and ABG ordered as patient was weaned from BiPAP to 3 L nasal cannula however was uptitrated back to nonrebreather. Will obtain blood cultures x2 given her leukocytosis and hypothermia. Replace potassium. Neurosurgery and neurology consulted and Luther catheter placed. 04/22: Improvement to sodium noted, slight hypokalemia which will be repleted, slight improvement to renal function, LFTs and rhabdomyolysis. Seen by neurosurgery today. Patient still making urine. transition to ssi and start TF as AG 15 04/23/2021: Given racemic epinephrine again due to stridor, continue IV fluids per nephrology, continue to trend sodium and BMP. 04/24/2021: /30 increased d/t hyperglycemia but recent BMP showed BG>300, gave additional 5 units IV insulin and ordered 5 units TID scheduled. However after IV insulin her PCOT was 400. Start on insulin gtt for hyperglycemia. Per RN she was not of IV D5 overniught d/t having one IV which was needed for emergency. Day RN did start dextrose. Remains with hyperglycemia. 04/25: Patient obtunded, withdrawal to pain only, on 50%Venti mask SPO2 abobe 92%. Plan to transition to SubQ insulin. Patient with mild hypernatremia this am, FWF added, will stop IVF for now. 04/26: Patient s/p intubation this am. Mentation is unchanged, plan for MRI brain today per NeuroSurg. Still hyperglycemic, hypernatremia improved, D5W D/katlyn, and basal insulin adjusted. 04/27: Bronch overnight. CXR with mild improvement. D/w Nephro plan for HD today, RIJ VasCath inserted. MRI on hold per [facility] patient is too unstable at this time, plan for possible spinal drained tomorrow to see if mentation will improve. Assessment and Plan #Neuro: Acute metabolic encephalopathy #Normal Pressure Hydrocephalus -CT head shows lateral ventricles and third ventricle dilation, raises possibility of normal pressure hydrocephalus -Neurology and neurosurgery consulted, appreciate recommendations -neurosurgery no acute interventions -MRI brain on hold patient too unstable -Maintain sleep-wake cycle -Avoid delirium -Correct electrolyte derangements -Hold off on restarting home antipsychotic medications when obtained #Respiratory: Acute hypoxic respiratory failure #CAP #Possible Aspiration -Patient decompensated overnight SPO2 dropped in the low 70s -S/p intubation this am 04/26 -Vent setting:PRVC- 100%,8,14,450 -04/26 s/p bronchoscopy, this am CXR with mild improvement -This am ABG noted -CCM consulted, appreciate recommendations -VAP bundle addressed -Aspiration precaution HOB above 30 -Daily SBT and SAT trials as tolerated -Daily ABG and CXR -Continue SPO2 monitoring for SPO2 goal above 92% #GI:Transaminitis #Hypoalbuminemia -Presented with transaminitis -Okay to resume TF -Trend LFTs -Ntr consult for TF -BR: Senokot -PPI #:Acute Kidney Injury (SYED) likely secondary to vasomotor nephropathy #Severe hypernatremia-improved #Urinary Retention-resolved -FeNA 0.50 indicating prerenal sate -Nephrology and CCM consulted, appreciate recommendations -D/w Nephro plan for HD today, vascath inserted -Luther catheter placed for strict intake and output -Avoid nephrotoxic medication -Continue FWF -Trend BMP -Will D/C D5w due to persistent hyperglycemia -Renally dose medications -Trend BMP #ID:CAP #Leukocytrosis- resolved -Patient presented hypothemic -CXR shows increased interstitial prominence of densities in bilateral lungs -COVID-19 PCR negative -Blood culture x2 NGTD -Antibiotic therapy course ended today 04/25 -Patient remains afebrile, with no leukocytosis -Monitor WBC and fever curve -Continue to F/U on B.cult -Daily CBC monitor -Consider ID consult if febrile or/and if leukocytosis reoccur #Endo:Hyperglycemia #s/p HHNK -Transition to SubQ insulin -Continue high dose SSI Q6hrs -Basal, NPH adjsuted -Avoid hypoglycemia #Heme:Thrombocytopenia -Plt remains low -AC still on hold -Trend CBC -Transfuse to hemoglobin less than 7 -Monitor for bleeding -r/o DVT, BUE dopplar neg -SCD to bilateral lower extremities while in bed The high probability of a clinically significant, sudden or life threatening deterioration of the [Neuro, Respiratory,Renal] system(s) required my full and direct attention, intervention and personal management. The aggregate critical care time was [60] minutes. This time is in addition to time spent performing reported procedures but includes the following: [x] Data Review and interpretation [x] Patient assessment and monitoring of vital signs [x] Documentation [x] Medication orders and management Disposition Plan: ICU Total Time Spent with Patient (Minutes): 60 History Interval history: Patient seen and examined at the bedside. Intubated, not on any sedation. Remains unresponsive, only withdrawal from pain. On low dose levophed gtt. S/p bronchoscopy overnight Hospitalist Physical - Constitutional Vitals: Temp Pulse Resp BP Pulse Ox 97.4 F L 62 21 107/50 98 04/27/21 12:11 04/27/21 12:30 04/27/21 12:30 04/27/21 12:30 04/27/21 12:30 General appearance: Present: no acute distress, other (Intubated and unresponsive) - EENT Eyes: Present: PERRL - Respiratory Respiratory effort: normal Respiratory: bilateral: diminished - Extremities Extremities: no ischemia, pulses intact, pulses symmetrical Extremity abnormal: edema Peripheral Pulses: within normal limits - Abdominal General gastrointestinal: soft, non-tender, normal bowel sounds - Integumentary Integumentary: Present: warm, dry - Psychiatric Psychiatric: other (Intubated and unresponsive) - Neurologic Neurologic: other (Intubated and unresponsive) - Allied Health Allied health notes reviewed: nursing HEART Score - HEART Score Troponin: Troponin T 0.021 ng/mL (0.00-0.029) 04/20/21 17:10 Results - Labs CBC & Chem 7: 04/26/21 09:33 04/27/21 07:43 Labs: Laboratory Last Values WBC 6.4 K/mm3 (4.5-11.0) 04/26/21 09:33 RBC 3.89 M/mm3 (3.65-5.03) 04/26/21 09:33 Hgb 10.5 gm/dl (10.1-14.3) 04/26/21 09:33 Hct 34.3 % (30.3-42.9) 04/26/21 09:33 MCV 88 fl (79-97) 04/26/21 09:33 MCH 27 pg (28-32) L 04/26/21 09:33 MCHC 31 % (30-34) 04/26/21 09:33 RDW 16.9 % (13.2-15.2) H 04/26/21 09:33 Plt Count 58 K/mm3 (140-440) L 04/26/21 09:33 Add Manual Diff Complete 04/26/21 09:33 Total Counted 100 04/26/21 09:33 Seg Neutrophils % Parachute Taper 04/26/21 09:33 Seg Neuts % (Manual) 77.0 % (40.0-70.0) H 04/26/21 09:33 Band Neutrophils % 17.0 % 04/26/21 09:33 Lymphocytes % (Manual) 4.0 % (13.4-35.0) L 04/26/21 09:33 Monocytes % (Manual) 1.0 % (0.0-7.3) 04/26/21 09:33 Eosinophils % (Manual) 1.0 % (0.0-4.3) 04/26/21 09:33 Metamyelocytes % 1.0 % 04/25/21 05:45 Myelocytes % 8.0 % 04/23/21 08:13 Nucleated RBC % 2.0 % (0.0-0.9) H 04/26/21 09:33 Seg Neutrophils # Man 4.9 K/mm3 (1.8-7.7) 04/26/21 09:33 Band Neutrophils # 1.1 K/mm3 04/26/21 09:33 Lymphocytes # (Manual) 0.3 K/mm3 (1.2-5.4) L 04/26/21 09:33 Abs React Lymphs (Man) 0.0 K/mm3 04/26/21 09:33 Monocytes # (Manual) 0.1 K/mm3 (0.0-0.8) 04/26/21 09:33 Eosinophils # (Manual) 0.1 K/mm3 (0.0-0.4) 04/26/21 09:33 Basophils # (Manual) 0.0 K/mm3 (0.0-0.1) 04/26/21 09:33 Metamyelocytes # 0.0 K/mm3 04/26/21 09:33 Myelocytes # 0.0 K/mm3 04/26/21 09:33 Promyelocytes # 0.0 K/mm3 04/26/21 09:33 Blast Cells # 0.0 K/mm3 04/26/21 09:33 WBC Morphology Not Reportable 04/26/21 09:33 Hypersegmented Neuts Not Reportable 04/26/21 09:33 Hyposegmented Neuts Not Reportable 04/26/21 09:33 Hypogranular Neuts Not Reportable 04/26/21 09:33 Smudge Cells Not Reportable 04/26/21 09:33 Toxic Granulation Not Reportable 04/26/21 09:33 Toxic Vacuolation Not Reportable 04/26/21 09:33 Dohle Bodies Not Reportable 04/26/21 09:33 Pelger-Huet Anomaly Not Reportable 04/26/21 09:33 Moni Rods Not Reportable 04/26/21 09:33 Platelet Estimate Cons 04/26/21 09:33 Clumped Platelets Not Reportable 04/26/21 09:33 Plt Clumps, EDTA Not Reportable 04/26/21 09:33 Large Platelets Few 04/26/21 09:33 Giant Platelets Not Reportable 04/26/21 09:33 Platelet Satelliting Not Reportable 04/26/21 09:33 Plt Morphology Comment Not Reportable 04/26/21 09:33 RBC Morphology Not Reportable 04/26/21 09:33 Dimorphic RBCs Not Reportable 04/26/21 09:33 Polychromasia Not Reportable 04/26/21 09:33 Hypochromasia Not Reportable 04/26/21 09:33 Poikilocytosis 1+ 04/26/21 09:33 Anisocytosis 1+ 04/26/21 09:33 Microcytosis Not Reportable 04/26/21 09:33 Macrocytosis Not Reportable 04/26/21 09:33 Spherocytes Not Reportable 04/26/21 09:33 Pappenheimer Bodies Not Reportable 04/26/21 09:33 Sickle Cells Not Reportable 04/26/21 09:33 Target Cells Not Reportable 04/26/21 09:33 Tear Drop Cells Not Reportable 04/26/21 09:33 Ovalocytes Not Reportable 04/26/21 09:33 Helmet Cells Not Reportable 04/26/21 09:33 Parkinson-Index Bodies Not Reportable 04/26/21 09:33 [place] Rings Not Reportable 04/26/21 09:33 [place] Cells 1+ 04/26/21 09:33 Bite Cells Not Reportable 04/26/21 09:33 Crenated Cell Not Reportable 04/26/21 09:33 Elliptocytes Not Reportable 04/26/21 09:33 Acanthocytes (Spur) Not Reportable 04/26/21 09:33 Rouleaux Not Reportable 04/26/21 09:33 Hemoglobin C Crystals Not Reportable 04/26/21 09:33 Schistocytes Not Reportable 04/26/21 09:33 Malaria parasites Not Reportable 04/26/21 09:33 Herrera Bodies Not Reportable 04/26/21 09:33 Hem Pathologist Commnt No 04/26/21 09:33 ABG pH 7.309 (7.320-7.450) L 04/27/21 08:30 POC ABG pCO2 38.3 mmHg (32.0-48.0) 04/27/21 08:30 ABG pCO2 31.6 mm Hg 04/21/21 15:47 POC ABG pO2 70.6 mmHg (83-108) L 04/27/21 08:30 ABG pO2 168.1 mm Hg (80.0-90.0) H 04/21/21 15:47 POC ABG HCO3 18.8 04/27/21 08:30 ABG HCO3 23.3 mmol/L (20.0-26.0) 04/21/21 15:47 ABG O2 Saturation 93.8 (0-100) 04/27/21 08:30 ABG O2 Content 12.7 (0.0-44) 04/21/21 15:47 POC ABG Base Excess -6.9 04/27/21 08:30 ABG Base Excess 0.3 mmol/L (-2.0-3.0) 04/21/21 15:47 ABG Hemoglobin 9.16 (12.0-17.5) L 04/27/21 08:30 ABG Oxyhemoglobin 92.4 (94-98) L 04/27/21 08:30 ABG Carboxyhemoglobin 1.0 % (0.0-5.0) 04/21/21 15:47 ABG Methemoglobin 0.5 (0.0-1.5) 04/27/21 08:30 ABG Sodium 137.7 mmol/L (136.0-145.0) 04/26/21 15:39 ABG Potassium 4.1 mmol/L (3.40-4.50) 04/26/21 15:39 ABG Chloride 108.0 mmol/L (98-107) H 04/26/21 15:39 ABG Glucose 404 mg/dL (65-95) H 04/26/21 15:39 VBG pH 7.397 (7.320-7.420) 04/20/21 17:10 Oxyhemoglobin 97.5 % (95.0-99.0) 04/21/21 15:47 Carboxyhemoglobin 1.0 (0.5-1.5) 04/27/21 08:30 FiO2 100 % 04/21/21 15:47 FiO2 % 100 04/27/21 08:30 Sodium 142 mmol/L (137-145) 04/27/21 07:43 Potassium 5.0 mmol/L (3.6-5.0) 04/27/21 07:43 Chloride 110.1 mmol/L (98-107) H 04/27/21 07:43 Carbon Dioxide 15 mmol/L (22-30) L 04/27/21 07:43 Anion Gap 22 mmol/L 04/27/21 07:43 BUN 109 mg/dL (7-17) H 04/27/21 07:43 Creatinine 4.3 mg/dL (0.6-1.2) H 04/27/21 07:43 Estimated GFR 12 ml/min 04/27/21 07:43 BUN/Creatinine Ratio 25 % 04/27/21 07:43 Glucose 218 mg/dL (65-100) H 04/27/21 07:43 POC Glucose 147 mg/dL (70-105) H 04/27/21 11:54 Hemoglobin A1c 17.1 % (4-6) H 04/22/21 15:55 Lactic Acid 1.90 mmol/L (0.7-2.0) 04/20/21 19:56 Calcium 8.4 mg/dL (8.4-10.2) 04/27/21 07:43 Phosphorus 5.60 mg/dL (2.5-4.5) H D 04/26/21 09:33 Magnesium 2.50 mg/dL (1.7-2.3) H 04/25/21 08:11 Iron 62 ug/dL (37-170) 04/24/21 17:29 TIBC 285 mcg/dL (250-450) 04/24/21 17:29 % Saturation 21.75 % 04/24/21 17:29 Transferrin 112 mg/dl (192-382) L 04/24/21 17:29 Total Bilirubin 0.30 mg/dL (0.1-1.2) 04/27/21 07:43 AST 53 units/L (5-40) H 04/27/21 07:43 ALT 53 units/L (7-56) 04/27/21 07:43 Alkaline Phosphatase 148 units/L (35-129) H 04/27/21 07:43 Ammonia 29.0 umol/L (25-60) 04/20/21 17:10 Total Creatine Kinase 1000 units/L (30-135) H 04/27/21 07:43 CK-MB (CK-2) 36.0 ng/mL (0.0-4.0) H 04/20/21 17:10 CK-MB (CK-2) Rel Index 0.9 (0-4) 04/20/21 17:10 Troponin T 0.021 ng/mL (0.00-0.029) 04/20/21 17:10 Total Protein 5.2 g/dL (6.3-8.2) L 04/27/21 07:43 Albumin 1.2 g/dL (3.9-5) L 04/27/21 07:43 Albumin/Globulin Ratio 0.3 % 04/27/21 07:43 TSH 6.040 mlU/mL (0.270-4.200) H 04/20/21 17:10 Free T4 0.93 ng/dL (0.76-1.46) 04/20/21 17:10 Arterial Blood Glucose 404 mg/dL (65-95) H 04/26/21 15:39 Urine Color Yellow (Yellow) 04/20/21 Unknown Urine Turbidity Slightly-cloudy (Clear) 04/20/21 Unknown Urine pH 5.0 (5.0-7.0) 04/20/21 Unknown Ur Specific [place] 1.016 (1.003-1.030) 04/20/21 Unknown Urine Protein <15 mg/dl mg/dL (Negative) 04/20/21 Unknown Urine Glucose (UA) >=500 mg/dL (Negative) 04/20/21 Unknown Urine Ketones Tr mg/dL (Negative) 04/20/21 Unknown Urine Blood Mod (Negative) 04/20/21 Unknown Urine Nitrite Neg (Negative) 04/20/21 Unknown Urine Bilirubin Neg (Negative) 04/20/21 Unknown Urine Urobilinogen < 2.0 mg/dL (<2.0) 04/20/21 Unknown Ur Leukocyte Esterase Neg (Negative) 04/20/21 Unknown Urine WBC (Auto) 3.0 /HPF (0.0-6.0) 04/20/21 Unknown Urine RBC (Auto) 1.0 /HPF (0.0-6.0) 04/20/21 Unknown Urine Mucus Few /HPF 04/20/21 Unknown Urine Osmolality 446 Mosm/kg 04/21/21 08:01 Urine Creatinine 44.3 mg/dL (0.1-20.0) H 04/21/21 08:01 Urine Sodium 71 mmol/L 04/21/21 08:01 Urine Total Protein 12 mg/dL (5-11.8) H 04/21/21 08:01 Plasma/Serum Alcohol < 0.01 % (0-0.07) 04/20/21 17:10 Coronavirus (PCR) Negative (Negative) 04/21/21 Unknown Microbiology: Microbiology 04/26/21 14:50 Tracheal Aspirate Sputum Culture - Preliminary 04/21/21 14:04 Peripheral/Venous Blood Culture - Final NO GROWTH AFTER 5 DAYS 04/21/21 14:04 Peripheral/Venous Blood Culture - Final NO GROWTH AFTER 5 DAYS Luther/IV: Voiding Method Indwelling Catheter Active Medications - Current Medications Current Medications: Generic Name Dose Route Start Last Admin Trade Name Freq PRN Reason Stop Dose Admin Acetaminophen 650 mg 04/20/21 21:31 Acetaminophen 325 Mg Tab PO Q4H PRN Pain MILD(1-3)/Fever >100.5/TURCIOS Albuterol 2.5 mg 04/22/21 14:49 04/23/21 15:18 Albuterol 2.5 Mg/3 Ml Nebu IH 2.5 mg Q4HRT PRN Administration Shortness Of Breath Lipase/Protease/Amylase 1 each 04/25/21 14:13 Lipase 10,500/Protease 25,000/Amylase 43,750 (Units) Dr Cap FEEDTUBE PRN PRN For Clogged Feeding Tube Dextrose 50 ml 04/24/21 11:36 Dextrose 50% In Water (25gm) 50 Ml Syringe IV Q30MIN PRN Hypoglycemia Protocol Famotidine 10 mg 04/27/21 10:00 04/27/21 10:24 Famotidine 10 Mg Tab FEEDTUBE 10 mg BID AZIZA Administration Hydralazine HCl 10 mg 04/24/21 21:22 Hydralazine 20 Mg/1 Ml Inj IV Q4HR PRN elevated BP Hydrophilic Ointment 1 applic 04/26/21 11:16 Lip Therapy Vaseline TP Q2HR PRN Dry Lips NORepinephrine/NS 8 MG-250 ML 8 mg in 250 mls @ 3.75 mls/hr 04/26/21 16:00 04/27/21 07:15 Norepinephrine/Ns 8 Mg-250 Ml (Double Conc) IV 2 mcg/min TITRATE AZIZA 3.75 mls/hr Titration Protocol 2 MCG/MIN Sodium Chloride 100 mls @ 999 mls/hr 04/27/21 10:43 Nacl 0.9% IV MITCH PRN Hypotension Insulin Human Lispro 0 unit 04/25/21 18:00 04/27/21 12:58 Insulin Lispro 100 Unit/Ml SUB-Q Not Given Q6HR AZIZA Protocol Insulin Human NPH 30 unit 04/26/21 10:00 04/27/21 10:20 Insulin Nph, Human 100 Unit/1 Ml SUB-Q 30 unit Q12HR AZIZA Administration Lorazepam 1 mg 04/26/21 11:15 Lorazepam 2 Mg/Ml Vial IV Q4H PRN Sedation Metoclopramide HCl 5 mg 04/20/21 21:31 Metoclopramide 10 Mg/2 Ml Inj IV Q6H PRN Nausea And Vomiting Multi-Ingred Cream/Lotion/Oil/Oint 1 applic 04/26/21 11:16 Mineral Oil/Petrolatum, White Ophth Oint 3.5 Gm OU Q4HR PRN Dry Eye(s) Ondansetron HCl 4 mg 04/20/21 21:31 Ondansetron 4 Mg/2 Ml Inj IV Q8H PRN Nausea And Vomiting Senna/Docusate Sodium 1 tab 04/26/21 22:00 04/27/21 10:20 Sennosides/Docusate Sodium 8.6/50 Mg Tab FEEDTUBE 1 tab BID AZIZA Administration Simple Syrup 15 ml 04/25/21 14:13 Simple Syrup 15 Ml FEEDTUBE PRN PRN Hypoglycemia Simple Syrup 30 ml 04/25/21 14:13 Simple Syrup 15 Ml FEEDTUBE PRN PRN Hypoglycemia Sodium Bicarbonate 325 mg 04/25/21 14:13 04/27/21 13:00 Sodium Bicarbonate 325 Mg Tab FEEDTUBE 325 mg PRN PRN Administration For Clogged Feeding Tube Sodium Bicarbonate 1,300 mg 04/27/21 14:00 Sodium Bicarbonate 650 Mg Tab PO TID AZIZA Sodium Chloride 10 ml 04/20/21 22:00 04/27/21 10:20 Sodium Chloride 0.9% 10 Ml Flush Syringe IV 10 ml BID AZIZA Administration Sodium Chloride 10 ml 04/20/21 21:31 Sodium Chloride 0.9% 10 Ml Flush Syringe IV PRN PRN LINE FLUSH Nutrition/Malnutrition Assess - Dietary Evaluation Nutrition/Malnutrition Findings: Nutrition Notes Start: 04/21/21 12:15 Freq: Status: Active Protocol: Document 04/27/21 12:21 JOSE (Rec: 04/27/21 13:30 JOSE [id number]) Nutrition Notes Need for Assessment generated from: MD Order Initial or Follow up Reassessment Current Diagnosis Acute Kidney Injury, Hyperlipidemia Other Pertinent Diagnosis Acute metabolic encephalopathy , Dehydration, Hyperosmolar non-ketotic state Current Diet TF-Nepro w/CARBSTEADY @ 27 ml/ hr (since D 04/27). Labs/Tests 04/27: Cl 110.1, CO2 15, BUN 109, Crea 4.3, Glu 218, AST 53 , AlkPhos 148, Tpro 5.2, Alb 1 .2. Pertinent Medications 04/27: Insulin, others nutritionally unremarkable. Height 5 ft 2 in Weight 72.4 kg [place] Body Weight (kg) 50.00 BMI 29.2 Weight change and time frame No body weight change reported . Weight Status Overweight Subjective/Other Information RD comsult for routine F/U on TF tolerance and evaluation of nutritional intake. MD requested change TF to Nepro, according to Progress note. Hypernatremia resolved. Percent of energy/protein needs met: Prescribed TF-Nepro w/ CARBSTEADY @ 27 ml/hr provides for energy/protein needs (1, 389 Kcal/63 g) during LOS, 100 % Kcal; 72% AA. Burn Absent Trauma Absent GI Symptoms None Food Allergy No Skin Integrity/Comment Clear, warm, dry. Current % PO Other Minimum of two criteria No #1 Nutrition Diagnosis Inadequate oral intake Diagnosis Progress(for reassessment Continues documentation) Is patient on ventilator? No Is Patient Ambulatory and/or Out of Bed No REE-([facility]-confined to bed) [phone] Calculation Used for Recommendations [facility] Additional Notes Protein: 1.2-2 g/k-145 g/ day Fluids: 1 ml/kcal, or as per MD. Nutrition Intervention Nutrition Support: Change TF to Mepro w/ CARBSTEADY @ 32 ml/hr. Flush: 140 ml water Q 4 hr, or as per MD. Kcal 1,389 Protein (gm) 63 Carbohydrates (gm) 124 Fat (gm) 74 Fluid (mL) 561 Fiber (gm) 10 % RDI: 100% Kcal; 72% AA. Goal #1 Provide at least 75% of energy /protein needs through Enteral Feeding during LOS. Follow-Up By: 04/29/21 Additional Comments Continue monitoring TF tolerance and BM. <RUPAL VIZCAINO - Last Filed: 04/28/21 07:12> Assessment and Plan Assessment and plan: I saw and evaluated the patient. I agree with the findings and the plan of care as documented in the Nurse Practitioner's~note, with the following corrections and additions. Hospitalist Physical - Constitutional Vitals: Temp Pulse Resp BP Pulse Ox 98.3 F 90 23 91/51 100 04/28/21 04:00 04/28/21 06:00 04/28/21 06:00 04/28/21 06:00 04/28/21 06:00 HEART Score - HEART Score Troponin: Troponin T 0.021 ng/mL (0.00-0.029) 04/20/21 17:10 Results - Labs CBC & Chem 7: 04/28/21 04:00 04/28/21 04:00 Labs: Laboratory Last Values WBC 12.6 K/mm3 (4.5-11.0) H 04/28/21 04:00 RBC 3.59 M/mm3 (3.65-5.03) L 04/28/21 04:00 Hgb 9.4 gm/dl (10.1-14.3) L 04/28/21 04:00 Hct 30.4 % (30.3-42.9) 04/28/21 04:00 MCV 85 fl (79-97) 04/28/21 04:00 MCH 26 pg (28-32) L 04/28/21 04:00 MCHC 31 % (30-34) 04/28/21 04:00 RDW 16.6 % (13.2-15.2) H 04/28/21 04:00 Plt Count 111 K/mm3 (140-440) L 04/28/21 04:00 Add Manual Diff Complete 04/26/21 09:33 Total Counted 100 04/26/21 09:33 Seg Neutrophils % Parachute Taper 04/28/21 04:00 Seg Neuts % (Manual) 77.0 % (40.0-70.0) H 04/26/21 09:33 Band Neutrophils % 17.0 % 04/26/21 09:33 Lymphocytes % (Manual) 4.0 % (13.4-35.0) L 04/26/21 09:33 Monocytes % (Manual) 1.0 % (0.0-7.3) 04/26/21 09:33 Eosinophils % (Manual) 1.0 % (0.0-4.3) 04/26/21 09:33 Metamyelocytes % 1.0 % 04/25/21 05:45 Myelocytes % 8.0 % 04/23/21 08:13 Nucleated RBC % 2.0 % (0.0-0.9) H 04/26/21 09:33 Seg Neutrophils # Man 4.9 K/mm3 (1.8-7.7) 04/26/21 09:33 Band Neutrophils # 1.1 K/mm3 04/26/21 09:33 Lymphocytes # (Manual) 0.3 K/mm3 (1.2-5.4) L 04/26/21 09:33 Abs React Lymphs (Man) 0.0 K/mm3 04/26/21 09:33 Monocytes # (Manual) 0.1 K/mm3 (0.0-0.8) 04/26/21 09:33 Eosinophils # (Manual) 0.1 K/mm3 (0.0-0.4) 04/26/21 09:33 Basophils # (Manual) 0.0 K/mm3 (0.0-0.1) 04/26/21 09:33 Metamyelocytes # 0.0 K/mm3 04/26/21 09:33 Myelocytes # 0.0 K/mm3 04/26/21 09:33 Promyelocytes # 0.0 K/mm3 04/26/21 09:33 Blast Cells # 0.0 K/mm3 04/26/21 09:33 WBC Morphology Not Reportable 04/26/21 09:33 Hypersegmented Neuts Not Reportable 04/26/21 09:33 Hyposegmented Neuts Not Reportable 04/26/21 09:33 Hypogranular Neuts Not Reportable 04/26/21 09:33 Smudge Cells Not Reportable 04/26/21 09:33 Toxic Granulation Not Reportable 04/26/21 09:33 Toxic Vacuolation Not Reportable 04/26/21 09:33 Dohle Bodies Not Reportable 04/26/21 09:33 Pelger-Huet Anomaly Not Reportable 04/26/21 09:33 Moni Rods Not Reportable 04/26/21 09:33 Platelet Estimate Cons 04/26/21 09:33 Clumped Platelets Not Reportable 04/26/21 09:33 Plt Clumps, EDTA Not Reportable 04/26/21 09:33 Large Platelets Few 04/26/21 09:33 Giant Platelets Not Reportable 04/26/21 09:33 Platelet Satelliting Not Reportable 04/26/21 09:33 Plt Morphology Comment Not Reportable 04/26/21 09:33 RBC Morphology Not Reportable 04/26/21 09:33 Dimorphic RBCs Not Reportable 04/26/21 09:33 Polychromasia Not Reportable 04/26/21 09:33 Hypochromasia Not Reportable 04/26/21 09:33 Poikilocytosis 1+ 04/26/21 09:33 Anisocytosis 1+ 04/26/21 09:33 Microcytosis Not Reportable 04/26/21 09:33 Macrocytosis Not Reportable 04/26/21 09:33 Spherocytes Not Reportable 04/26/21 09:33 Pappenheimer Bodies Not Reportable 04/26/21 09:33 Sickle Cells Not Reportable 04/26/21 09:33 Target Cells Not Reportable 04/26/21 09:33 Tear Drop Cells Not Reportable 04/26/21 09:33 Ovalocytes Not Reportable 04/26/21 09:33 Helmet Cells Not Reportable 04/26/21 09:33 Parkinson-Index Bodies Not Reportable 04/26/21 09:33 [place] Rings Not Reportable 04/26/21 09:33 [place] Cells 1+ 04/26/21 09:33 Bite Cells Not Reportable 04/26/21 09:33 Crenated Cell Not Reportable 04/26/21 09:33 Elliptocytes Not Reportable 04/26/21 09:33 Acanthocytes (Spur) Not Reportable 04/26/21 09:33 Rouleaux Not Reportable 04/26/21 09:33 Hemoglobin C Crystals Not Reportable 04/26/21 09:33 Schistocytes Not Reportable 04/26/21 09:33 Malaria parasites Not Reportable 04/26/21 09:33 [place]rera Bodies Not Reportable 04/26/21 09:33 Hem Pathologist Commnt No 04/26/21 09:33 PT 15.3 Sec. (12.2-14.9) H 04/28/21 05:00 INR 1.09 (0.87-1.13) 04/28/21 05:00 APTT 36.6 Sec. (24.2-36.6) 04/28/21 05:00 ABG pH 7.309 (7.320-7.450) L 04/27/21 08:30 POC ABG pCO2 38.3 mmHg (32.0-48.0) 04/27/21 08:30 ABG pCO2 31.6 mm Hg 04/21/21 15:47 POC ABG pO2 70.6 mmHg (83-108) L 04/27/21 08:30 ABG pO2 168.1 mm Hg (80.0-90.0) H 04/21/21 15:47 POC ABG HCO3 18.8 04/27/21 08:30 ABG HCO3 23.3 mmol/L (20.0-26.0) 04/21/21 15:47 ABG O2 Saturation 93.8 (0-100) 04/27/21 08:30 ABG O2 Content 12.7 (0.0-44) 04/21/21 15:47 POC ABG Base Excess -6.9 04/27/21 08:30 ABG Base Excess 0.3 mmol/L (-2.0-3.0) 04/21/21 15:47 ABG Hemoglobin 9.16 (12.0-17.5) L 04/27/21 08:30 ABG Oxyhemoglobin 92.4 (94-98) L 04/27/21 08:30 ABG Carboxyhemoglobin 1.0 % (0.0-5.0) 04/21/21 15:47 ABG Methemoglobin 0.5 (0.0-1.5) 04/27/21 08:30 ABG Sodium 137.7 mmol/L (136.0-145.0) 04/26/21 15:39 ABG Potassium 4.1 mmol/L (3.40-4.50) 04/26/21 15:39 ABG Chloride 108.0 mmol/L (98-107) H 04/26/21 15:39 ABG Glucose 404 mg/dL (65-95) H 04/26/21 15:39 VBG pH 7.397 (7.320-7.420) 04/20/21 17:10 Oxyhemoglobin 97.5 % (95.0-99.0) 04/21/21 15:47 Carboxyhemoglobin 1.0 (0.5-1.5) 04/27/21 08:30 FiO2 100 % 04/21/21 15:47 FiO2 % 100 04/27/21 08:30 Sodium 147 mmol/L (137-145) H 04/28/21 04:00 Potassium 3.5 mmol/L (3.6-5.0) L D 04/28/21 04:00 Chloride 105.4 mmol/L (98-107) 04/28/21 04:00 Carbon Dioxide 24 mmol/L (22-30) D 04/28/21 04:00 Anion Gap 21 mmol/L 04/28/21 04:00 BUN 79 mg/dL (7-17) H 04/28/21 04:00 Creatinine 3.8 mg/dL (0.6-1.2) H 04/28/21 04:00 Estimated GFR 14 ml/min 04/28/21 04:00 BUN/Creatinine Ratio 21 % 04/28/21 04:00 Glucose 194 mg/dL (65-100) H 04/28/21 04:00 POC Glucose 183 mg/dL (70-105) H 04/28/21 05:08 Hemoglobin A1c 17.1 % (4-6) H 04/22/21 15:55 Lactic Acid 1.90 mmol/L (0.7-2.0) 04/20/21 19:56 Calcium 8.1 mg/dL (8.4-10.2) L 04/28/21 04:00 Phosphorus 5.60 mg/dL (2.5-4.5) H D 04/26/21 09:33 Magnesium 2.50 mg/dL (1.7-2.3) H 04/25/21 08:11 Iron 62 ug/dL (37-170) 04/24/21 17:29 TIBC 285 mcg/dL (250-450) 04/24/21 17:29 % Saturation 21.75 % 04/24/21 17:29 Transferrin 112 mg/dl (192-382) L 04/24/21 17:29 Total Bilirubin 0.30 mg/dL (0.1-1.2) 04/27/21 07:43 AST 53 units/L (5-40) H 04/27/21 07:43 ALT 53 units/L (7-56) 04/27/21 07:43 Alkaline Phosphatase 148 units/L (35-129) H 04/27/21 07:43 Ammonia 29.0 umol/L (25-60) 04/20/21 17:10 Total Creatine Kinase 1000 units/L (30-135) H 04/27/21 07:43 CK-MB (CK-2) 36.0 ng/mL (0.0-4.0) H 04/20/21 17:10 CK-MB (CK-2) Rel Index 0.9 (0-4) 04/20/21 17:10 Troponin T 0.021 ng/mL (0.00-0.029) 04/20/21 17:10 Serum Total Protein 5.5 g/dL (6.1-8.1) L 04/22/21 08:59 Total Protein 5.2 g/dL (6.3-8.2) L 04/27/21 07:43 Albumin 1.2 g/dL (3.9-5) L 04/27/21 07:43 Albumin/Globulin Ratio 0.3 % 04/27/21 07:43 Jqgcy-6-Ubonwcpmf 0.6 g/dL (0.2-0.3) H 04/22/21 08:59 Kbtup-1-Zvwkwdwpy 1.0 g/dL (0.5-0.9) H 04/22/21 08:59 Beta Globulins 0.3 g/dL (0.2-0.5) 04/22/21 08:59 Gamma Globulins 0.6 g/dL (0.8-1.7) L 04/22/21 08:59 Abnorm Protein Band 1 see below 04/22/21 08:59 PEP Interpretation see below H 04/22/21 08:59 TSH 6.040 mlU/mL (0.270-4.200) H 04/20/21 17:10 Free T4 0.93 ng/dL (0.76-1.46) 04/20/21 17:10 Arterial Blood Glucose 404 mg/dL (65-95) H 04/26/21 15:39 Urine Color Yellow (Yellow) 04/20/21 Unknown Urine Turbidity Slightly-cloudy (Clear) 04/20/21 Unknown Urine pH 5.0 (5.0-7.0) 04/20/21 Unknown Ur Specific [place] 1.016 (1.003-1.030) 04/20/21 Unknown Urine Protein <15 mg/dl mg/dL (Negative) 04/20/21 Unknown Urine Glucose (UA) >=500 mg/dL (Negative) 04/20/21 Unknown Urine Ketones Tr mg/dL (Negative) 04/20/21 Unknown Urine Blood Mod (Negative) 04/20/21 Unknown Urine Nitrite Neg (Negative) 04/20/21 Unknown Urine Bilirubin Neg (Negative) 04/20/21 Unknown Urine Urobilinogen < 2.0 mg/dL (<2.0) 04/20/21 Unknown Ur Leukocyte Esterase Neg (Negative) 04/20/21 Unknown Urine WBC (Auto) 3.0 /HPF (0.0-6.0) 04/20/21 Unknown Urine RBC (Auto) 1.0 /HPF (0.0-6.0) 04/20/21 Unknown Urine Mucus Few /HPF 04/20/21 Unknown Urine Osmolality 446 Mosm/kg 04/21/21 08:01 Urine Creatinine 44.3 mg/dL (0.1-20.0) H 04/21/21 08:01 Urine Sodium 71 mmol/L 04/21/21 08:01 Urine Total Protein 12 mg/dL (5-11.8) H 04/21/21 08:01 Plasma/Serum Alcohol < 0.01 % (0-0.07) 04/20/21 17:10 Coronavirus (PCR) Negative (Negative) 04/21/21 Unknown Hepatitis A IgM Ab Non-reactive (NonReactive) 04/27/21 12:49 Hep Bs Antigen Nonreactive (Negative) 04/27/21 12:49 Hep B Core IgM Ab Non-reactive (NonReactive) 04/27/21 12:49 Hepatitis C Antibody Non-reactive (NonReactive) 04/27/21 12:49 Luther/IV: Voiding Method Indwelling Catheter Active Medications - Current Medications Current Medications: Generic Name Dose Route Start Last Admin Trade Name Freq PRN Reason Stop Dose Admin Acetaminophen 650 mg 04/20/21 21:31 Acetaminophen 325 Mg Tab PO Q4H PRN Pain MILD(1-3)/Fever >100.5/TURCIOS Albuterol 2.5 mg 04/22/21 14:49 04/23/21 15:18 Albuterol 2.5 Mg/3 Ml Nebu IH 2.5 mg Q4HRT PRN Administration Shortness Of Breath Lipase/Protease/Amylase 1 each 04/25/21 14:13 Lipase 10,500/Protease 25,000/Amylase 43,750 (Units) Dr Vasquez FEEDTUBE PRN PRN For Clogged Feeding Tube Dextrose 50 ml 04/24/21 11:36 Dextrose 50% In Water (25gm) 50 Ml Syringe IV Q30MIN PRN Hypoglycemia Protocol Famotidine 10 mg 04/27/21 10:00 04/27/21 21:16 Famotidine 10 Mg Tab FEEDTUBE 10 mg BID AZIZA Administration Hydralazine HCl 10 mg 04/24/21 21:22 Hydralazine 20 Mg/1 Ml Inj IV Q4HR PRN elevated BP Hydrophilic Ointment 1 applic 04/26/21 11:16 Lip Therapy Vaseline TP Q2HR PRN Dry Lips NORepinephrine/NS 8 MG-250 ML 8 mg in 250 mls @ 3.75 mls/hr 04/26/21 16:00 04/28/21 03:07 Norepinephrine/Ns 8 Mg-250 Ml (Double Conc) IV 3 mcg/min TITRATE AZIZA 5.625 mls/hr Titration Protocol 2 MCG/MIN Sodium Chloride 100 mls @ 999 mls/hr 04/27/21 10:43 Nacl 0.9% IV MITCH PRN Hypotension Insulin Human Lispro 0 unit 04/25/21 18:00 04/28/21 05:29 Insulin Lispro 100 Unit/Ml SUB-Q 3 unit Q6HR AZIZA Administration Protocol Insulin Human NPH 30 unit 04/26/21 10:00 04/27/21 21:15 Insulin Nph, Human 100 Unit/1 Ml SUB-Q 30 unit Q12HR AZIZA Administration Lorazepam 1 mg 04/26/21 11:15 Lorazepam 2 Mg/Ml Vial IV Q4H PRN Sedation Metoclopramide HCl 5 mg 04/20/21 21:31 Metoclopramide 10 Mg/2 Ml Inj IV Q6H PRN Nausea And Vomiting Multi-Ingred Cream/Lotion/Oil/Oint 1 applic 04/26/21 11:16 Mineral Oil/Petrolatum, White Ophth Oint 3.5 Gm OU Q4HR PRN Dry Eye(s) Ondansetron HCl 4 mg 04/20/21 21:31 Ondansetron 4 Mg/2 Ml Inj IV Q8H PRN Nausea And Vomiting Senna/Docusate Sodium 1 tab 04/26/21 22:00 04/27/21 21:15 Sennosides/Docusate Sodium 8.6/50 Mg Tab FEEDTUBE 1 tab BID AZIZA Administration Simple Syrup 15 ml 04/25/21 14:13 Simple Syrup 15 Ml FEEDTUBE PRN PRN Hypoglycemia Simple Syrup 30 ml 04/25/21 14:13 Simple Syrup 15 Ml FEEDTUBE PRN PRN Hypoglycemia Sodium Bicarbonate 325 mg 04/25/21 14:13 04/27/21 13:00 Sodium Bicarbonate 325 Mg Tab FEEDTUBE 325 mg PRN PRN Administration For Clogged Feeding Tube Sodium Bicarbonate 1,300 mg 04/27/21 14:00 04/27/21 20:49 Sodium Bicarbonate 650 Mg Tab PO 1,300 mg TID AZIZA Administration Sodium Chloride 10 ml 04/20/21 22:00 04/27/21 21:15 Sodium Chloride 0.9% 10 Ml Flush Syringe IV 10 ml BID AZIZA Administration Sodium Chloride 10 ml 04/20/21 21:31 Sodium Chloride 0.9% 10 Ml Flush Syringe IV PRN PRN LINE FLUSH Nutrition/Malnutrition Assess - Dietary Evaluation Nutrition/Malnutrition Findings: Nutrition Notes Start: 04/21/21 12:15 Freq: Status: Active Protocol: Document 04/27/21 12:21 JOSE (Rec: 04/27/21 13:30 JOSE [id number]) Nutrition Notes Need for Assessment generated from: MD Order Initial or Follow up Reassessment Current Diagnosis Acute Kidney Injury, Hyperlipidemia Other Pertinent Diagnosis Acute metabolic encephalopathy , Dehydration, Hyperosmolar non-ketotic state Current Diet TF-Nepro w/CARBSTEADY @ 27 ml/ hr (since D 04/27). Labs/Tests 04/27: Cl 110.1, CO2 15, BUN 109, Crea 4.3, Glu 218, AST 53 , AlkPhos 148, Tpro 5.2, Alb 1 .2. Pertinent Medications 04/27: Insulin, others nutritionally unremarkable. Height 5 ft 2 in Weight 72.4 kg [place] Body Weight (kg) 50.00 BMI 29.2 Weight change and time frame No body weight change reported . Weight Status Overweight Subjective/Other Information RD comsult for routine F/U on TF tolerance and evaluation of nutritional intake. MD requested change TF to Nepro, according to Progress note. Hypernatremia resolved. Percent of energy/protein needs met: Prescribed TF-Nepro w/ CARBSTEADY @ 27 ml/hr provides for energy/protein needs (1, 389 Kcal/63 g) during LOS, 100 % Kcal; 72% AA. Burn Absent Trauma Absent GI Symptoms None Food Allergy No Skin Integrity/Comment Clear, warm, dry. Current % PO Other Minimum of two criteria No #1 Nutrition Diagnosis Inadequate oral intake Diagnosis Progress(for reassessment Continues documentation) Is patient on ventilator? No Is Patient Ambulatory and/or Out of Bed No REE-([facility]-confined to bed) [phone] Calculation Used for Recommendations [facility] Additional Notes Protein: 1.2-2 g/k-145 g/ day Fluids: 1 ml/kcal, or as per MD. Nutrition Intervention Nutrition Support: Change TF to Mepro w/ CARBSTEADY @ 32 ml/hr. Flush: 140 ml water Q 4 hr, or as per MD. Kcal 1,389 Protein (gm) 63 Carbohydrates (gm) 124 Fat (gm) 74 Fluid (mL) 561 Fiber (gm) 10 % RDI: 100% Kcal; 72% AA. Goal #1 Provide at least 75% of energy /protein needs through Enteral Feeding during LOS. Follow-Up By: 04/29/21 Additional Comments Continue monitoring TF tolerance and BM.
--- NOTE | 2021-04-27 14:12 | Procedure Note ---
Date of procedure: 04/27/21 Pre-op diagnosis: Acute Kidney Injury Post-op diagnosis: same Procedure: RIJ VasCath Placement Patient was evaluated and required temporary VasCath placement for Hemodialysis. Informed consent was obtained from patient's CLEMENTAHarjinder A time-out was completed verifying correct patient, procedure, site, and positioning. Hand hygiene were performed immediately prior to the procedure and sterile technique was used throughout the procedure. The patient's right neck was prepped with chlorhexidine scrub then draped in a sterile fashion. 1% Lidocaine was used to anesthetize the surrounding skin area. Ultrasound was utilized to localize the right internal jugular vein without difficulty. Then the right internal jugular vein was accessed using ultrasound guidance and a 15cm trialysis catheter was introduced using the Seldinger technique. The ca theter threaded smoothly over the guidewire and advanced easily into the vein and brisk blood return was observed from each lumen. Each lumen were flushed and clamped, then the catheter was sutured in place, a Biopatch was placed at the insertion site, and covered with a sterile dressing. Patient tolerated the procedure well, no signs of any adverse reaction noted. CXR shows good placement without PTX. VasCath is okay to use. Total Time Spent with Patient (Minutes): 50 minutes Anesthesia: local Surgeon: LISA CLIFTON (Supervised by Dr. Da Silva) Estimated blood loss: minimal Condition: critical Disposition: ICU
[2021-04-27 14:15] LABS: Hepatitis C Virus Antibody Non-Reactive (NonReactive)
[2021-04-27 14:17] LABS: Hepatitis B Surface Antigen Nonreactive (Negative)
--- NOTE | 2021-04-27 14:19 | XRay Report ---
CHEST 1 VIEW 04/27/2021 1:55 PM INDICATION / CLINICAL INFORMATION: Hypoxemia, recent vascath placement. COMPARISON: 04/27/2021. FINDINGS: SUPPORT DEVICES: Right IJ vas catheter has its tip over the distal superior vena cava. No pneumothora x. Endotracheal tube and NG tube unchanged. HEART / MEDIASTINUM: No significant abnormality. LUNGS / PLEURA: Bilateral opacity remains with left basilar effusion. The appearance is overall impro dung. Improving aeration right base. No pneumothorax. ADDITIONAL FINDINGS: No significant additional findings. IMPRESSION: 1. Right IJ vas catheter in satisfactory position. 2. Interval mild improvement in the appearance of the chest. Signer Name: Dg Yin MD Signed: 04/27/2021 2:14 PM Workstation Name: [id number]
--- NOTE | 2021-04-27 14:28 | Procedure Note ---
Date of procedure: 04/27/21 Pre-op diagnosis: Pneumonia Post-op diagnosis: same Procedure: Bronch Bronchoscope passed via ET tube. Arielle seen and airway inspection done of left and write after lidcaine as administered down the ET tube. Surprisingly, there were no thick secretions. Those that were seen were thin and clear. These were removed. Scope removed and patient was stable. Anesthesia: local Surgeon: AURORA GAYTAN Estimated blood loss: none Pathology: none Condition: critical Disposition: ICU
--- NOTE | 2021-04-27 14:32 | Progress Note ---
Assessment and Plan 80 y/o female with altered mental state, severe electrolyte imbalance with presumptive acute renal failure and hypothermia. 04/27/21: HD today per renal. Vascath placed and awaiting CXR for conformation of good placement (done and good). Vent weaning as tolerated for sats >88%. ABG in the AM. Will check Coags in the am and hopeful these are stable. Platelets need to above 50K. Would like to do large volume spinal tap to see if this helps with mentation. Will also obtain MRI once oxygen requirement improves. 04/26/21: WIll electively intubate and then obtain MRI. Pending MRI results, will likely order large volume spinal tap to assess if NPH is a factor or not. Guarded prognosis. Electrolytes are improving. 04/25/21: Continue to follow renal recs. Will reach out to POA either today or tomorrow for further updates. Follow up renal recs. Monitor electrolytes and renal function. Guarded prognosis. 1. Neuro-reached out to neuro surgery, placed consult in regards to CT findings 2. Renal-appreciate help and recs, will follow IV hydration recommendations 3. Blood cultures. Urine was negative 4. Jorge Irvinggger for temp Guarded prognosis CCT 31 minutes. Subjective Date of service: 04/27/21 Principal diagnosis: Acute respiratory failure Interval history: Still on 100%. PaO2 was 70 this am. Sat is 100 on monitor. Remains unresponsive. Not on continuous sedation. Required levophed on yesterday and unfortunately, have not been able to wean. Renal spoke with POA and he has agreed to dialysis. Objective Vital Signs - 12hr 04/27/21 04/27/21 04/27/21 02:30 02:46 03:00 Temperature Pulse Rate 61 71 67 Pulse Rate [ From Monitor] Respiratory 18 15 16 Rate Blood Pressure 114/57 114/57 151/60 O2 Sat by Pulse 98 94 98 Oximetry 04/27/21 04/27/21 04/27/21 03:15 03:16 03:17 Temperature Pulse Rate 64 80 Pulse Rate [ 72 From Monitor] Respiratory 29 H 15 Rate Blood Pressure 128/56 O2 Sat by Pulse 98 95 Oximetry 04/27/21 04/27/21 04/27/21 03:30 03:45 04:00 Temperature 97.6 F Pulse Rate 69 66 73 Pulse Rate [ From Monitor] Respiratory 24 19 19 Rate Blood Pressure 119/57 138/51 138/51 O2 Sat by Pulse 100 96 94 Oximetry 04/27/21 04/27/21 04/27/21 04:15 04:30 04:45 Temperature Pulse Rate 72 69 69 Pulse Rate [ From Monitor] Respiratory 17 17 25 H Rate Blood Pressure 122/47 122/47 103/47 O2 Sat by Pulse 93 100 100 Oximetry 04/27/21 04/27/21 04/27/21 05:00 05:15 05:30 Temperature Pulse Rate 72 69 66 Pulse Rate [ From Monitor] Respiratory 22 23 15 Rate Blood Pressure 96/48 115/51 105/48 O2 Sat by Pulse 100 100 100 Oximetry 04/27/21 04/27/21 04/27/21 05:45 06:00 06:15 Temperature Pulse Rate 65 63 60 Pulse Rate [ From Monitor] Respiratory 20 22 14 Rate Blood Pressure 100/47 97/44 96/42 O2 Sat by Pulse 100 100 100 Oximetry 04/27/21 04/27/21 04/27/21 06:30 06:45 07:00 Temperature Pulse Rate 66 61 60 Pulse Rate [ From Monitor] Respiratory 19 22 Rate Blood Pressure 111/48 90/42 87/43 O2 Sat by Pulse 100 100 100 Oximetry 04/27/21 04/27/21 04/27/21 07:15 07:30 07:43 Temperature 97.4 F L Pulse Rate 59 L 58 L Pulse Rate [ From Monitor] Respiratory 18 23 Rate Blood Pressure 84/40 88/42 O2 Sat by Pulse 100 97 Oximetry 04/27/21 04/27/21 04/27/21 07:46 08:00 08:05 Temperature Pulse Rate 61 59 L 59 L Pulse Rate [ 67 From Monitor] Respiratory 17 22 Rate Blood Pressure 117/56 113/51 113/51 O2 Sat by Pulse 100 99 99 Oximetry 04/27/21 04/27/21 04/27/21 08:15 08:30 08:45 Temperature Pulse Rate 65 60 61 Pulse Rate [ From Monitor] Respiratory 22 24 Rate Blood Pressure 125/59 109/50 102/49 O2 Sat by Pulse 99 98 98 Oximetry 04/27/21 04/27/21 04/27/21 09:00 09:15 09:30 Temperature Pulse Rate 59 L 61 60 Pulse Rate [ From Monitor] Respiratory 22 16 27 H Rate Blood Pressure 108/49 103/55 107/52 O2 Sat by Pulse 99 96 96 Oximetry 04/27/21 04/27/21 04/27/21 09:45 10:00 10:15 Temperature Pulse Rate 60 61 62 Pulse Rate [ From Monitor] Respiratory 26 H 21 15 Rate Blood Pressure 106/53 108/56 106/53 O2 Sat by Pulse 96 98 99 Oximetry 04/27/21 04/27/21 04/27/21 10:30 10:45 11:00 Temperature Pulse Rate 61 65 61 Pulse Rate [ From Monitor] Respiratory 24 18 23 Rate Blood Pressure 117/57 128/59 111/52 O2 Sat by Pulse 98 99 97 Oximetry 04/27/21 04/27/21 04/27/21 11:15 11:30 11:45 Temperature Pulse Rate 63 59 L 61 Pulse Rate [ From Monitor] Respiratory 16 22 18 Rate Blood Pressure 122/56 112/53 120/55 O2 Sat by Pulse 99 99 100 Oximetry 04/27/21 04/27/21 04/27/21 12:00 12:11 12:15 Temperature 97.4 F L Pulse Rate 62 67 Pulse Rate [ 61 From Monitor] Respiratory 19 24 Rate Blood Pressure 110/52 134/61 O2 Sat by Pulse 99 100 Oximetry 04/27/21 12:30 Temperature Pulse Rate 62 Pulse Rate [ From Monitor] Respiratory 21 Rate Blood Pressure 107/50 O2 Sat by Pulse 98 Oximetry Constitutional: other (critically ill, somnolent) Eyes: non-icteric ENT: oropharynx dry Effort: other (tachypneic but not labored) Ascultation: Bilateral: clear Cardiovascular: regular rate and rhythm Gastrointestinal: normoactive bowel sounds, soft, non-tender, non-distended Integumentary: normal Extremities: no cyanosis, no edema, pink and warm Neurologic: unable to assess Psychiatric: other (unable to assess) CBC and BMP: 04/26/21 09:33 04/27/21 07:43 ABG, PT/INR, D-dimer: ABG ABG pH 7.309 (7.320-7.450) L 04/27/21 08:30 POC ABG pCO2 38.3 mmHg (32.0-48.0) 04/27/21 08:30 ABG pCO2 31.6 mm Hg 04/21/21 15:47 POC ABG pO2 70.6 mmHg (83-108) L 04/27/21 08:30 ABG pO2 168.1 mm Hg (80.0-90.0) H 04/21/21 15:47 POC ABG HCO3 18.8 04/27/21 08:30 ABG O2 Saturation 93.8 (0-100) 04/27/21 08:30 Abnormal lab findings: Abnormal Labs 04/20/21 04/20/21 04/20/21 17:10 17:10 17:10 WBC 17.4 H RBC 5.19 H Hct 46.8 H MCH 27 L RDW 17.2 H Plt Count Seg Neuts % (Manual) 98.0 H Lymphocytes % (Manual) 2.0 L Nucleated RBC % 1.0 H Seg Neutrophils # Man 17.1 H Lymphocytes # (Manual) 0.3 L ABG pH POC ABG pO2 ABG pO2 ABG O2 Saturation ABG Base Excess ABG Hemoglobin ABG Oxyhemoglobin ABG Chloride ABG Glucose Oxyhemoglobin Sodium 173 H* Potassium Chloride 132.9 H Carbon Dioxide 17 L BUN 120 H Creatinine 4.2 H Glucose 762 H* POC Glucose Hemoglobin A1c Lactic Acid Calcium Phosphorus Magnesium 3.80 H Transferrin AST 72 H ALT 63 H Alkaline Phosphatase 148 H Total Creatine Kinase 3697 H CK-MB (CK-2) 36.0 H Total Protein Albumin 2.2 L TSH Arterial Blood Glucose Urine Creatinine Urine Total Protein 04/20/21 04/20/21 04/20/21 17:10 17:10 18:55 WBC RBC Hct MCH RDW Plt Count Seg Neuts % (Manual) Lymphocytes % (Manual) Nucleated RBC % Seg Neutrophils # Man Lymphocytes # (Manual) ABG pH POC ABG pO2 ABG pO2 ABG O2 Saturation ABG Base Excess ABG Hemoglobin ABG Oxyhemoglobin ABG Chloride ABG Glucose Oxyhemoglobin Sodium Potassium Chloride Carbon Dioxide BUN Creatinine Glucose POC Glucose 574 H Hemoglobin A1c Lactic Acid 2.60 H* Calcium Phosphorus Magnesium Transferrin AST ALT Alkaline Phosphatase Total Creatine Kinase CK-MB (CK-2) Total Protein Albumin TSH 6.040 H Arterial Blood Glucose Urine Creatinine Urine Total Protein 04/20/21 04/20/21 04/21/21 22:58 22:58 00:14 WBC RBC Hct MCH RDW Plt Count Seg Neuts % (Manual) Lymphocytes % (Manual) Nucleated RBC % Seg Neutrophils # Man Lymphocytes # (Manual) ABG pH POC ABG pO2 ABG pO2 ABG O2 Saturation ABG Base Excess ABG Hemoglobin ABG Oxyhemoglobin ABG Chloride ABG Glucose Oxyhemoglobin Sodium 172 H* Potassium 3.2 L Chloride 134.2 H Carbon Dioxide 17 L BUN 112 H Creatinine 3.8 H Glucose 803 H* POC Glucose > 600 H Hemoglobin A1c Lactic Acid Calcium 8.3 L Phosphorus Magnesium 3.50 H Transferrin AST ALT Alkaline Phosphatase Total Creatine Kinase CK-MB (CK-2) Total Protein Albumin TSH Arterial Blood Glucose Urine Creatinine Urine Total Protein 04/21/21 04/21/21 04/21/21 00:22 02:01 03:11 WBC RBC Hct MCH RDW Plt Count Seg Neuts % (Manual) Lymphocytes % (Manual) Nucleated RBC % Seg Neutrophils # Man Lymphocytes # (Manual) ABG pH POC ABG pO2 ABG pO2 ABG O2 Saturation ABG Base Excess ABG Hemoglobin ABG Oxyhemoglobin ABG Chloride ABG Glucose Oxyhemoglobin Sodium 176 H* 175 H* Potassium 2.9 L* 3.0 L Chloride 139.9 H 136.2 H Carbon Dioxide 17 L 19 L BUN 113 H 112 H Creatinine 3.9 H 3.6 H Glucose 729 H* 582 H* POC Glucose 404 H Hemoglobin A1c Lactic Acid Calcium Phosphorus Magnesium Transferrin AST ALT Alkaline Phosphatase Total Creatine Kinase CK-MB (CK-2) Total Protein Albumin TSH Arterial Blood Glucose Urine Creatinine Urine Total Protein 04/21/21 04/21/21 04/21/21 03:20 03:41 03:41 WBC 14.1 H RBC Hct MCH 27 L RDW 16.8 H Plt Count 114 L Seg Neuts % (Manual) 97.0 H Lymphocytes % (Manual) 3.0 L Nucleated RBC % 1.0 H Seg Neutrophils # Man 13.7 H Lymphocytes # (Manual) 0.4 L ABG pH POC ABG pO2 ABG pO2 52.3 L ABG O2 Saturation 84.5 L ABG Base Excess -2.9 L ABG Hemoglobin ABG Oxyhemoglobin ABG Chloride ABG Glucose Oxyhemoglobin 82.9 L Sodium 179 H* Potassium 2.9 L* Chloride 138.2 H Carbon Dioxide 20 L BUN 111 H Creatinine 3.7 H Glucose 465 H POC Glucose Hemoglobin A1c Lactic Acid Calcium Phosphorus Magnesium Transferrin AST 73 H ALT 61 H Alkaline Phosphatase 144 H Total Creatine Kinase CK-MB (CK-2) Total Protein Albumin 2.5 L TSH Arterial Blood Glucose Urine Creatinine Urine Total Protein 04/21/21 04/21/21 04/21/21 04:24 05:45 06:47 WBC RBC Hct MCH RDW Plt Count Seg Neuts % (Manual) Lymphocytes % (Manual) Nucleated RBC % Seg Neutrophils # Man Lymphocytes # (Manual) ABG pH POC ABG pO2 ABG pO2 ABG O2 Saturation ABG Base Excess ABG Hemoglobin ABG Oxyhemoglobin ABG Chloride ABG Glucose Oxyhemoglobin Sodium Potassium Chloride Carbon Dioxide BUN Creatinine Glucose POC Glucose 353 H 280 H 260 H Hemoglobin A1c Lactic Acid Calcium Phosphorus Magnesium Transferrin AST ALT Alkaline Phosphatase Total Creatine Kinase CK-MB (CK-2) Total Protein Albumin TSH Arterial Blood Glucose Urine Creatinine Urine Total Protein 04/21/21 04/21/21 04/21/21 08:01 11:11 12:51 WBC RBC Hct MCH RDW Plt Count Seg Neuts % (Manual) Lymphocytes % (Manual) Nucleated RBC % Seg Neutrophils # Man Lymphocytes # (Manual) ABG pH POC ABG pO2 ABG pO2 ABG O2 Saturation ABG Base Excess ABG Hemoglobin ABG Oxyhemoglobin ABG Chloride ABG Glucose Oxyhemoglobin Sodium Potassium Chloride Carbon Dioxide BUN Creatinine Glucose POC Glucose 68 L 146 H Hemoglobin A1c Lactic Acid Calcium Phosphorus Magnesium Transferrin AST ALT Alkaline Phosphatase Total Creatine Kinase CK-MB (CK-2) Total Protein Albumin TSH Arterial Blood Glucose Urine Creatinine 44.3 H Urine Total Protein 12 H 04/21/21 04/21/21 04/21/21 13:41 14:40 15:47 WBC RBC Hct MCH RDW Plt Count Seg Neuts % (Manual) Lymphocytes % (Manual) Nucleated RBC % Seg Neutrophils # Man Lymphocytes # (Manual) ABG pH 7.275 L 7.486 H POC ABG pO2 63.4 L ABG pO2 168.1 H ABG O2 Saturation 99.1 H ABG Base Excess ABG Hemoglobin 8.4 L 8.9 L ABG Oxyhemoglobin 89.5 L ABG Chloride 108.0 H ABG Glucose 404 H Oxyhemoglobin Sodium Potassium Chloride Carbon Dioxide BUN Creatinine Glucose POC Glucose 186 H Hemoglobin A1c Lactic Acid Calcium Phosphorus Magnesium Transferrin AST ALT Alkaline Phosphatase Total Creatine Kinase CK-MB (CK-2) Total Protein Albumin TSH Arterial Blood Glucose 404 H Urine Creatinine Urine Total Protein 04/21/21 04/21/21 04/21/21 16:25 17:57 18:49 WBC RBC Hct MCH RDW Plt Count Seg Neuts % (Manual) Lymphocytes % (Manual) Nucleated RBC % Seg Neutrophils # Man Lymphocytes # (Manual) ABG pH POC ABG pO2 ABG pO2 ABG O2 Saturation ABG Base Excess ABG Hemoglobin ABG Oxyhemoglobin ABG Chloride ABG Glucose Oxyhemoglobin Sodium 174 H* Potassium 7.2 H* D Chloride 138.2 H Carbon Dioxide 21 L BUN 99 H Creatinine 4.0 H Glucose 157 H POC Glucose 172 H 143 H Hemoglobin A1c Lactic Acid Calcium Phosphorus Magnesium Transferrin AST 134 H ALT 71 H Alkaline Phosphatase 135 H Total Creatine Kinase 3504 H CK-MB (CK-2) Total Protein Albumin 2.2 L TSH Arterial Blood Glucose Urine Creatinine Urine Total Protein 04/21/21 04/21/21 04/21/21 19:10 20:26 20:53 WBC RBC Hct MCH RDW Plt Count Seg Neuts % (Manual) Lymphocytes % (Manual) Nucleated RBC % Seg Neutrophils # Man Lymphocytes # (Manual) ABG pH POC ABG pO2 ABG pO2 ABG O2 Saturation ABG Base Excess ABG Hemoglobin ABG Oxyhemoglobin ABG Chloride ABG Glucose Oxyhemoglobin Sodium Potassium Chloride Carbon Dioxide BUN Creatinine Glucose POC Glucose 126 H 190 H 116 H Hemoglobin A1c Lactic Acid Calcium Phosphorus Magnesium Transferrin AST ALT Alkaline Phosphatase Total Creatine Kinase CK-MB (CK-2) Total Protein Albumin TSH Arterial Blood Glucose Urine Creatinine Urine Total Protein 04/21/21 04/21/21 04/21/21 21:52 22:55 23:00 WBC RBC Hct MCH RDW Plt Count Seg Neuts % (Manual) Lymphocytes % (Manual) Nucleated RBC % Seg Neutrophils # Man Lymphocytes # (Manual) ABG pH POC ABG pO2 ABG pO2 ABG O2 Saturation ABG Base Excess ABG Hemoglobin ABG Oxyhemoglobin ABG Chloride ABG Glucose Oxyhemoglobin Sodium 176 H* Potassium Chloride 140.0 H Carbon Dioxide 20 L BUN 98 H Creatinine 3.9 H Glucose 206 H POC Glucose 135 H 158 H Hemoglobin A1c Lactic Acid Calcium Phosphorus Magnesium Transferrin AST ALT Alkaline Phosphatase Total Creatine Kinase 3240 H CK-MB (CK-2) Total Protein Albumin TSH Arterial Blood Glucose Urine Creatinine Urine Total Protein 04/22/21 04/22/21 04/22/21 00:01 00:39 00:58 WBC RBC Hct MCH RDW Plt Count Seg Neuts % (Manual) Lymphocytes % (Manual) Nucleated RBC % Seg Neutrophils # Man Lymphocytes # (Manual) ABG pH POC ABG pO2 ABG pO2 ABG O2 Saturation ABG Base Excess ABG Hemoglobin ABG Oxyhemoglobin ABG Chloride ABG Glucose Oxyhemoglobin Sodium 171 H* Potassium Chloride Carbon Dioxide BUN Creatinine Glucose POC Glucose 182 H 176 H Hemoglobin A1c Lactic Acid Calcium Phosphorus Magnesium Transferrin AST ALT Alkaline Phosphatase Total Creatine Kinase CK-MB (CK-2) Total Protein Albumin TSH Arterial Blood Glucose Urine Creatinine Urine Total Protein 04/22/21 04/22/21 04/22/21 01:04 04:52 06:07 WBC 11.2 H RBC Hct 44.3 H MCH 27 L RDW 17.1 H Plt Count 86 L Seg Neuts % (Manual) 86.0 H Lymphocytes % (Manual) 13.0 L Nucleated RBC % Seg Neutrophils # Man 9.6 H Lymphocytes # (Manual) ABG pH POC ABG pO2 ABG pO2 ABG O2 Saturation ABG Base Excess ABG Hemoglobin ABG Oxyhemoglobin ABG Chloride ABG Glucose Oxyhemoglobin Sodium Potassium Chloride Carbon Dioxide BUN Creatinine Glucose POC Glucose 143 H 206 H Hemoglobin A1c Lactic Acid Calcium Phosphorus Magnesium Transferrin AST ALT Alkaline Phosphatase Total Creatine Kinase CK-MB (CK-2) Total Protein Albumin TSH Arterial Blood Glucose Urine Creatinine Urine Total Protein 04/22/21 04/22/21 04/22/21 06:09 07:18 08:59 WBC RBC Hct MCH RDW Plt Count Seg Neuts % (Manual) Lymphocytes % (Manual) Nucleated RBC % Seg Neutrophils # Man Lymphocytes # (Manual) ABG pH POC ABG pO2 ABG pO2 ABG O2 Saturation ABG Base Excess ABG Hemoglobin ABG Oxyhemoglobin ABG Chloride ABG Glucose Oxyhemoglobin Sodium Potassium Chloride Carbon Dioxide BUN Creatinine Glucose POC Glucose 163 H 158 H Hemoglobin A1c Lactic Acid Calcium Phosphorus Magnesium Transferrin AST ALT Alkaline Phosphatase Total Creatine Kinase 3105 H CK-MB (CK-2) Total Protein Albumin TSH Arterial Blood Glucose Urine Creatinine Urine Total Protein 04/22/21 04/22/21 04/22/21 08:59 09:44 10:24 WBC RBC Hct MCH RDW Plt Count Seg Neuts % (Manual) Lymphocytes % (Manual) Nucleated RBC % Seg Neutrophils # Man Lymphocytes # (Manual) ABG pH POC ABG pO2 ABG pO2 ABG O2 Saturation ABG Base Excess ABG Hemoglobin ABG Oxyhemoglobin ABG Chloride ABG Glucose Oxyhemoglobin Sodium 169 H* Potassium 3.5 L Chloride 134.5 H Carbon Dioxide 20 L BUN 95 H Creatinine 3.6 H Glucose 151 H POC Glucose 107 H Hemoglobin A1c Lactic Acid Calcium Phosphorus Magnesium 2.80 H Transferrin AST 121 H ALT 75 H Alkaline Phosphatase 137 H Total Creatine Kinase CK-MB (CK-2) Total Protein 6.0 L Albumin 2.1 L TSH Arterial Blood Glucose Urine Creatinine Urine Total Protein 04/22/21 04/22/21 04/22/21 12:20 13:19 14:16 WBC RBC Hct MCH RDW Plt Count Seg Neuts % (Manual) Lymphocytes % (Manual) Nucleated RBC % Seg Neutrophils # Man Lymphocytes # (Manual) ABG pH POC ABG pO2 ABG pO2 ABG O2 Saturation ABG Base Excess ABG Hemoglobin ABG Oxyhemoglobin ABG Chloride ABG Glucose Oxyhemoglobin Sodium Potassium Chloride Carbon Dioxide BUN Creatinine Glucose POC Glucose 131 H 147 H 154 H Hemoglobin A1c Lactic Acid Calcium Phosphorus Magnesium Transferrin AST ALT Alkaline Phosphatase Total Creatine Kinase CK-MB (CK-2) Total Protein Albumin TSH Arterial Blood Glucose Urine Creatinine Urine Total Protein 04/22/21 04/22/21 04/22/21 15:22 15:55 15:55 WBC RBC Hct MCH RDW Plt Count Seg Neuts % (Manual) Lymphocytes % (Manual) Nucleated RBC % Seg Neutrophils # Man Lymphocytes # (Manual) ABG pH POC ABG pO2 ABG pO2 ABG O2 Saturation ABG Base Excess ABG Hemoglobin ABG Oxyhemoglobin ABG Chloride ABG Glucose Oxyhemoglobin Sodium 169 H* Potassium Chloride 133.5 H Carbon Dioxide 19 L BUN 94 H Creatinine 3.8 H Glucose 150 H POC Glucose 136 H Hemoglobin A1c 17.1 H Lactic Acid Calcium Phosphorus Magnesium Transferrin AST ALT Alkaline Phosphatase Total Creatine Kinase CK-MB (CK-2) Total Protein Albumin TSH Arterial Blood Glucose Urine Creatinine Urine Total Protein 04/22/21 04/22/21 04/22/21 16:22 18:11 18:26 WBC RBC Hct MCH RDW Plt Count Seg Neuts % (Manual) Lymphocytes % (Manual) Nucleated RBC % Seg Neutrophils # Man Lymphocytes # (Manual) ABG pH POC ABG pO2 ABG pO2 ABG O2 Saturation ABG Base Excess ABG Hemoglobin ABG Oxyhemoglobin ABG Chloride ABG Glucose Oxyhemoglobin Sodium Potassium Chloride Carbon Dioxide BUN Creatinine Glucose POC Glucose 140 H 146 H Hemoglobin A1c Lactic Acid Calcium Phosphorus Magnesium Transferrin AST ALT Alkaline Phosphatase Total Creatine Kinase 2497 H CK-MB (CK-2) Total Protein Albumin TSH Arterial Blood Glucose Urine Creatinine Urine Total Protein 04/22/21 04/23/21 04/23/21 23:19 00:27 05:23 WBC RBC Hct MCH RDW Plt Count Seg Neuts % (Manual) Lymphocytes % (Manual) Nucleated RBC % Seg Neutrophils # Man Lymphocytes # (Manual) ABG pH POC ABG pO2 ABG pO2 ABG O2 Saturation ABG Base Excess ABG Hemoglobin ABG Oxyhemoglobin ABG Chloride ABG Glucose Oxyhemoglobin Sodium 162 H* Potassium Chloride Carbon Dioxide BUN Creatinine Glucose POC Glucose 188 H 212 H Hemoglobin A1c Lactic Acid Calcium Phosphorus Magnesium Transferrin AST ALT Alkaline Phosphatase Total Creatine Kinase CK-MB (CK-2) Total Protein Albumin TSH Arterial Blood Glucose Urine Creatinine Urine Total Protein 04/23/21 04/23/21 04/23/21 07:50 08:13 08:13 WBC 11.9 H RBC Hct MCH 26 L RDW 16.5 H Plt Count 72 L Seg Neuts % (Manual) 80.0 H Lymphocytes % (Manual) 5.0 L Nucleated RBC % Seg Neutrophils # Man 9.5 H Lymphocytes # (Manual) 0.6 L ABG pH POC ABG pO2 ABG pO2 ABG O2 Saturation ABG Base Excess ABG Hemoglobin ABG Oxyhemoglobin ABG Chloride ABG Glucose Oxyhemoglobin Sodium Potassium Chloride Carbon Dioxide BUN Creatinine Glucose POC Glucose 239 H Hemoglobin A1c Lactic Acid Calcium Phosphorus Magnesium Transferrin AST ALT Alkaline Phosphatase Total Creatine Kinase 1803 H CK-MB (CK-2) Total Protein Albumin TSH Arterial Blood Glucose Urine Creatinine Urine Total Protein 04/23/21 04/23/21 04/23/21 08:13 12:06 17:35 WBC RBC Hct MCH RDW Plt Count Seg Neuts % (Manual) Lymphocytes % (Manual) Nucleated RBC % Seg Neutrophils # Man Lymphocytes # (Manual) ABG pH POC ABG pO2 ABG pO2 ABG O2 Saturation ABG Base Excess ABG Hemoglobin ABG Oxyhemoglobin ABG Chloride ABG Glucose Oxyhemoglobin Sodium 164 H* Potassium Chloride 128.0 H Carbon Dioxide 21 L BUN 93 H Creatinine 3.8 H Glucose 293 H POC Glucose 311 H 370 H Hemoglobin A1c Lactic Acid Calcium Phosphorus Magnesium Transferrin AST 99 H ALT 70 H Alkaline Phosphatase 147 H Total Creatine Kinase CK-MB (CK-2) Total Protein 6.1 L Albumin 2.0 L TSH Arterial Blood Glucose Urine Creatinine Urine Total Protein 04/23/21 04/24/21 04/24/21 18:17 02:13 06:00 WBC RBC Hct MCH 27 L RDW 17.0 H Plt Count 58 L Seg Neuts % (Manual) Lymphocytes % (Manual) 2.0 L Nucleated RBC % Seg Neutrophils # Man 8.9 H Lymphocytes # (Manual) 0.2 L ABG pH POC ABG pO2 ABG pO2 ABG O2 Saturation ABG Base Excess ABG Hemoglobin ABG Oxyhemoglobin ABG Chloride ABG Glucose Oxyhemoglobin Sodium 160 H 160 H Potassium Chloride Carbon Dioxide BUN Creatinine Glucose POC Glucose Hemoglobin A1c Lactic Acid Calcium Phosphorus Magnesium Transferrin AST ALT Alkaline Phosphatase Total Creatine Kinase CK-MB (CK-2) Total Protein Albumin TSH Arterial Blood Glucose Urine Creatinine Urine Total Protein 04/24/21 04/24/21 04/24/21 06:00 07:46 08:15 WBC RBC Hct MCH RDW Plt Count Seg Neuts % (Manual) Lymphocytes % (Manual) Nucleated RBC % Seg Neutrophils # Man Lymphocytes # (Manual) ABG pH POC ABG pO2 ABG pO2 ABG O2 Saturation ABG Base Excess ABG Hemoglobin ABG Oxyhemoglobin ABG Chloride ABG Glucose Oxyhemoglobin Sodium 159 H Potassium Chloride 125.6 H Carbon Dioxide 19 L BUN 94 H Creatinine 3.7 H Glucose 514 H* POC Glucose 395 H Hemoglobin A1c Lactic Acid Calcium Phosphorus Magnesium 2.90 H Transferrin AST ALT 61 H Alkaline Phosphatase 155 H Total Creatine Kinase CK-MB (CK-2) Total Protein 6.1 L Albumin 1.5 L TSH Arterial Blood Glucose Urine Creatinine Urine Total Protein 04/24/21 04/24/21 04/24/21 11:34 13:11 14:01 WBC RBC Hct MCH RDW Plt Count Seg Neuts % (Manual) Lymphocytes % (Manual) Nucleated RBC % Seg Neutrophils # Man Lymphocytes # (Manual) ABG pH POC ABG pO2 ABG pO2 ABG O2 Saturation ABG Base Excess ABG Hemoglobin ABG Oxyhemoglobin ABG Chloride ABG Glucose Oxyhemoglobin Sodium Potassium Chloride Carbon Dioxide BUN Creatinine Glucose POC Glucose 422 H 384 H 423 H Hemoglobin A1c Lactic Acid Calcium Phosphorus Magnesium Transferrin AST ALT Alkaline Phosphatase Total Creatine Kinase CK-MB (CK-2) Total Protein Albumin TSH Arterial Blood Glucose Urine Creatinine Urine Total Protein 04/24/21 04/24/2122 15:03 17:29 18:28 WBC RBC Hct MCH RDW Plt Count Seg Neuts % (Manual) Lymphocytes % (Manual) Nucleated RBC % Seg Neutrophils # Man Lymphocytes # (Manual) ABG pH POC ABG pO2 ABG pO2 ABG O2 Saturation ABG Base Excess ABG Hemoglobin ABG Oxyhemoglobin ABG Chloride ABG Glucose Oxyhemoglobin Sodium Potassium Chloride Carbon Dioxide BUN Creatinine Glucose POC Glucose 418 H 335 H Hemoglobin A1c Lactic Acid Calcium Phosphorus Magnesium Transferrin 112 L AST ALT Alkaline Phosphatase Total Creatine Kinase CK-MB (CK-2) Total Protein Albumin TSH Arterial Blood Glucose Urine Creatinine Urine Total Protein 04/24/21 04/24/21 04/25/21 19:41 22:33 01:28 WBC RBC Hct MCH RDW Plt Count Seg Neuts % (Manual) Lymphocytes % (Manual) Nucleated RBC % Seg Neutrophils # Man Lymphocytes # (Manual) ABG pH POC ABG pO2 ABG pO2 ABG O2 Saturation ABG Base Excess ABG Hemoglobin ABG Oxyhemoglobin ABG Chloride ABG Glucose Oxyhemoglobin Sodium Potassium Chloride Carbon Dioxide BUN Creatinine Glucose POC Glucose 321 H 349 H 283 H Hemoglobin A1c Lactic Acid Calcium Phosphorus Magnesium Transferrin AST ALT Alkaline Phosphatase Total Creatine Kinase CK-MB (CK-2) Total Protein Albumin TSH Arterial Blood Glucose Urine Creatinine Urine Total Protein 04/25/21 04/25/21 04/25/21 02:28 03:25 04:22 WBC RBC Hct MCH RDW Plt Count Seg Neuts % (Manual) Lymphocytes % (Manual) Nucleated RBC % Seg Neutrophils # Man Lymphocytes # (Manual) ABG pH POC ABG pO2 ABG pO2 ABG O2 Saturation ABG Base Excess ABG Hemoglobin ABG Oxyhemoglobin ABG Chloride ABG Glucose Oxyhemoglobin Sodium Potassium Chloride Carbon Dioxide BUN Creatinine Glucose POC Glucose 247 H 196 H 207 H Hemoglobin A1c Lactic Acid Calcium Phosphorus Magnesium Transferrin AST ALT Alkaline Phosphatase Total Creatine Kinase CK-MB (CK-2) Total Protein Albumin TSH Arterial Blood Glucose Urine Creatinine Urine Total Protein 04/25/21 04/25/21 04/25/21 05:40 05:45 06:43 WBC RBC Hct MCH 27 L RDW 17.0 H Plt Count 64 L Seg Neuts % (Manual) 84.0 H Lymphocytes % (Manual) 6.0 L Nucleated RBC % 1.0 H Seg Neutrophils # Man Lymphocytes # (Manual) 0.4 L ABG pH POC ABG pO2 ABG pO2 ABG O2 Saturation ABG Base Excess ABG Hemoglobin ABG Oxyhemoglobin ABG Chloride ABG Glucose Oxyhemoglobin Sodium Potassium Chloride Carbon Dioxide BUN Creatinine Glucose POC Glucose 204 H 238 H Hemoglobin A1c Lactic Acid Calcium Phosphorus Magnesium Transferrin AST ALT Alkaline Phosphatase Total Creatine Kinase CK-MB (CK-2) Total Protein Albumin TSH Arterial Blood Glucose Urine Creatinine Urine Total Protein 04/25/21 04/25/21 04/25/21 07:37 08:11 08:11 WBC RBC Hct MCH RDW Plt Count Seg Neuts % (Manual) Lymphocytes % (Manual) Nucleated RBC % Seg Neutrophils # Man Lymphocytes # (Manual) ABG pH POC ABG pO2 ABG pO2 ABG O2 Saturation ABG Base Excess ABG Hemoglobin ABG Oxyhemoglobin ABG Chloride ABG Glucose Oxyhemoglobin Sodium 148 H D Potassium Chloride 115.7 H Carbon Dioxide 21 L BUN 83 H Creatinine 3.6 H Glucose 247 H POC Glucose 201 H Hemoglobin A1c Lactic Acid Calcium Phosphorus Magnesium 2.50 H Transferrin AST 63 H ALT 62 H Alkaline Phosphatase 143 H Total Creatine Kinase CK-MB (CK-2) Total Protein 5.4 L Albumin 1.4 L TSH Arterial Blood Glucose Urine Creatinine Urine Total Protein 04/25/21 04/25/21 04/25/21 08:41 09:22 10:31 WBC RBC Hct MCH RDW Plt Count Seg Neuts % (Manual) Lymphocytes % (Manual) Nucleated RBC % Seg Neutrophils # Man Lymphocytes # (Manual) ABG pH POC ABG pO2 ABG pO2 ABG O2 Saturation ABG Base Excess ABG Hemoglobin ABG Oxyhemoglobin ABG Chloride ABG Glucose Oxyhemoglobin Sodium Potassium Chloride Carbon Dioxide BUN Creatinine Glucose POC Glucose 220 H 228 H 215 H Hemoglobin A1c Lactic Acid Calcium Phosphorus Magnesium Transferrin AST ALT Alkaline Phosphatase Total Creatine Kinase CK-MB (CK-2) Total Protein Albumin TSH Arterial Blood Glucose Urine Creatinine Urine Total Protein 04/25/21 04/25/21 04/25/21 11:44 12:23 13:48 WBC RBC Hct MCH RDW Plt Count Seg Neuts % (Manual) Lymphocytes % (Manual) Nucleated RBC % Seg Neutrophils # Man Lymphocytes # (Manual) ABG pH POC ABG pO2 ABG pO2 ABG O2 Saturation ABG Base Excess ABG Hemoglobin ABG Oxyhemoglobin ABG Chloride ABG Glucose Oxyhemoglobin Sodium Potassium Chloride Carbon Dioxide BUN Creatinine Glucose POC Glucose 191 H 229 H 177 H Hemoglobin A1c Lactic Acid Calcium Phosphorus Magnesium Transferrin AST ALT Alkaline Phosphatase Total Creatine Kinase CK-MB (CK-2) Total Protein Albumin TSH Arterial Blood Glucose Urine Creatinine Urine Total Protein 04/25/21 04/25/21 04/25/21 14:11 18:01 21:31 WBC RBC Hct MCH RDW Plt Count Seg Neuts % (Manual) Lymphocytes % (Manual) Nucleated RBC % Seg Neutrophils # Man Lymphocytes # (Manual) ABG pH POC ABG pO2 ABG pO2 ABG O2 Saturation ABG Base Excess ABG Hemoglobin ABG Oxyhemoglobin ABG Chloride ABG Glucose Oxyhemoglobin Sodium Potassium Chloride Carbon Dioxide BUN Creatinine Glucose POC Glucose 161 H 264 H 371 H Hemoglobin A1c Lactic Acid Calcium Phosphorus Magnesium Transferrin AST ALT Alkaline Phosphatase Total Creatine Kinase CK-MB (CK-2) Total Protein Albumin TSH Arterial Blood Glucose Urine Creatinine Urine Total Protein 04/26/21 04/26/21 04/26/21 01:19 06:31 09:13 WBC RBC Hct MCH RDW Plt Count Seg Neuts % (Manual) Lymphocytes % (Manual) Nucleated RBC % Seg Neutrophils # Man Lymphocytes # (Manual) ABG pH POC ABG pO2 ABG pO2 ABG O2 Saturation ABG Base Excess ABG Hemoglobin ABG Oxyhemoglobin ABG Chloride ABG Glucose Oxyhemoglobin Sodium Potassium Chloride Carbon Dioxide BUN Creatinine Glucose POC Glucose 356 H 428 H 454 H Hemoglobin A1c Lactic Acid Calcium Phosphorus Magnesium Transferrin AST ALT Alkaline Phosphatase Total Creatine Kinase CK-MB (CK-2) Total Protein Albumin TSH Arterial Blood Glucose Urine Creatinine Urine Total Protein 04/26/21 04/26/21 04/26/21 09:33 09:33 09:33 WBC RBC Hct MCH 27 L RDW 16.9 H Plt Count 58 L Seg Neuts % (Manual) 77.0 H Lymphocytes % (Manual) 4.0 L Nucleated RBC % 2.0 H Seg Neutrophils # Man Lymphocytes # (Manual) 0.3 L ABG pH POC ABG pO2 ABG pO2 ABG O2 Saturation ABG Base Excess ABG Hemoglobin ABG Oxyhemoglobin ABG Chloride ABG Glucose Oxyhemoglobin Sodium Potassium Chloride Carbon Dioxide 19 L BUN 98 H Creatinine 3.8 H Glucose 530 H* POC Glucose Hemoglobin A1c Lactic Acid Calcium 8.1 L Phosphorus 5.60 H D Magnesium Transferrin AST 60 H ALT 72 H Alkaline Phosphatase 168 H Total Creatine Kinase CK-MB (CK-2) Total Protein 4.6 L Albumin 1.7 L TSH Arterial Blood Glucose Urine Creatinine Urine Total Protein 04/26/21 04/26/21 04/26/21 11:00 12:36 15:39 WBC RBC Hct MCH RDW Plt Count Seg Neuts % (Manual) Lymphocytes % (Manual) Nucleated RBC % Seg Neutrophils # Man Lymphocytes # (Manual) ABG pH 7.281 L 7.275 L POC ABG pO2 66.4 L 63.4 L ABG pO2 ABG O2 Saturation ABG Base Excess ABG Hemoglobin 10.9 L 8.4 L ABG Oxyhemoglobin 91 L 89.5 L ABG Chloride 108.0 H ABG Glucose 521 H 404 H Oxyhemoglobin Sodium Potassium Chloride Carbon Dioxide BUN Creatinine Glucose POC Glucose 414 H Hemoglobin A1c Lactic Acid Calcium Phosphorus Magnesium Transferrin AST ALT Alkaline Phosphatase Total Creatine Kinase CK-MB (CK-2) Total Protein Albumin TSH Arterial Blood Glucose 521 H 404 H Urine Creatinine Urine Total Protein 04/26/21 04/26/21 04/27/21 16:18 21:14 00:07 WBC RBC Hct MCH RDW Plt Count Seg Neuts % (Manual) Lymphocytes % (Manual) Nucleated RBC % Seg Neutrophils # Man Lymphocytes # (Manual) ABG pH POC ABG pO2 ABG pO2 ABG O2 Saturation ABG Base Excess ABG Hemoglobin ABG Oxyhemoglobin ABG Chloride ABG Glucose Oxyhemoglobin Sodium Potassium Chloride Carbon Dioxide BUN Creatinine Glucose POC Glucose 324 H 242 H 282 H Hemoglobin A1c Lactic Acid Calcium Phosphorus Magnesium Transferrin AST ALT Alkaline Phosphatase Total Creatine Kinase CK-MB (CK-2) Total Protein Albumin TSH Arterial Blood Glucose Urine Creatinine Urine Total Protein 04/27/21 04/27/21 04/27/21 05:47 06:23 07:43 WBC RBC Hct MCH RDW Plt Count Seg Neuts % (Manual) Lymphocytes % (Manual) Nucleated RBC % Seg Neutrophils # Man Lymphocytes # (Manual) ABG pH POC ABG pO2 ABG pO2 ABG O2 Saturation ABG Base Excess ABG Hemoglobin ABG Oxyhemoglobin ABG Chloride ABG Glucose Oxyhemoglobin Sodium Potassium Chloride 110.1 H Carbon Dioxide 15 L BUN 109 H Creatinine 4.3 H Glucose 218 H POC Glucose 214 H 187 H Hemoglobin A1c Lactic Acid Calcium Phosphorus Magnesium Transferrin AST 53 H ALT Alkaline Phosphatase 148 H Total Creatine Kinase 1000 H CK-MB (CK-2) Total Protein 5.2 L Albumin 1.2 L TSH Arterial Blood Glucose Urine Creatinine Urine Total Protein 04/27/21 04/27/21 08:30 11:54 WBC RBC Hct MCH RDW Plt Count Seg Neuts % (Manual) Lymphocytes % (Manual) Nucleated RBC % Seg Neutrophils # Man Lymphocytes # (Manual) ABG pH 7.309 L POC ABG pO2 70.6 L ABG pO2 ABG O2 Saturation ABG Base Excess ABG Hemoglobin 9.16 L ABG Oxyhemoglobin 92.4 L ABG Chloride ABG Glucose Oxyhemoglobin Sodium Potassium Chloride Carbon Dioxide BUN Creatinine Glucose POC Glucose 147 H Hemoglobin A1c Lactic Acid Calcium Phosphorus Magnesium Transferrin AST ALT Alkaline Phosphatase Total Creatine Kinase CK-MB (CK-2) Total Protein Albumin TSH Arterial Blood Glucose Urine Creatinine Urine Total Protein
[2021-04-27] MEDS: SODIUM BICARBONATE 650 MG TAB PO SCH ×2 (17:46→20:49)
[2021-04-27 23:33] LABS: Albumin 2.8 g/dL (3.8-4.8); Gamma Globulin 0.6 g/dL (0.8-1.7)
[2021-04-28] MEDS: INSULIN LISPRO 100 UNIT/ML SUB-Q SCH ×4 (00:16→17:48)
--- NOTE | 2021-04-28 05:24 | XRay Report ---
CHEST 1 VIEW INDICATION / CLINICAL INFORMATION: follow up respiratory failure. COMPARISON: 04/27/2021 FINDINGS: SUPPORT DEVICES: Stable, satisfactory device positioning. HEART / MEDIASTINUM: No significant abnormality. LUNGS / PLEURA: Extensive bilateral pulmonary opacities persist. There does appear to be slight impro vement of the pulmonary opacities within the right lung.. No pneumothorax. ADDITIONAL FINDINGS: No significant additional findings. IMPRESSION: 1. Prominent bilateral pulmonary opacities persist with slight improvement within the right lung. Signer Name: Carolee Torres MD Signed: 04/28/2021 5:19 AM Workstation Name: [id number]
[2021-04-28 05:36] LABS: Hematocrit 30.4 % (30.3-42.9); Hemoglobin 9.4 gm/dl (10.1-14.3); Mean Corpuscular HGB Conc 31 % (30-34); Mean Corpuscular Volume 85 fl (79-97); Red Blood Count 3.59 M/mm3 (3.65-5.03); Red Cell Distribution Width 16.6 % (13.2-15.2)
[2021-04-28 05:46] LABS: Calcium 8.1 mg/dL (8.4-10.2)
[2021-04-28 05:48] LABS: INR 1.09 (0.87-1.13); Partial Thromboplastin Time 36.6 Sec. (24.2-36.6)
[2021-04-28 06:55] LABS: Platelet Count 111 K/mm3 (140-440)
[2021-04-28 08:21] LABS: Band Neutrophils # (Manual) 0.3 K/mm3; Large Platelets Few; Total Cells Counted 100
[2021-04-28 08:22] LABS: Platelet Estimate Consistent w Auto; Target Cells 1+
[2021-04-28] MEDS ORDERED: POTASSIUM CHLORIDE 20 MEQ PACKET FEEDTUBE SCH (08:30)
[2021-04-28] MEDS: SODIUM BICARBONATE 650 MG TAB PO SCH ×3 (09:02→20:45)
[2021-04-28] MEDS: SENNOSIDES/DOCUSATE SODIUM 8.6/50 MG TAB FEEDTUBE SCH ×2 (09:03→22:28)
[2021-04-28] MEDS: INSULIN NPH, HUMAN 100 UNIT/1 ML SUB-Q SCH ×2 (09:03→22:28)
[2021-04-28] MEDS: FAMOTIDINE 10 MG TAB FEEDTUBE SCH (09:03)
[2021-04-28] MEDS: FREE WATER PO SCH ×4 (09:05→22:28)
--- NOTE | 2021-04-28 09:27 | Progress Note ---
Assessment and Plan (1) Acute metabolic encephalopathy (2) Diabetic hyperosmolar non-ketotic state 3) SYED (acute kidney injury) (4) Dehydration (5) Hypernatremia (6) Rhabdomyolysis (7) Hypernatremia 8) GERD (gastroesophageal reflux disease) (9) Metabolic acidosis (10) Leukocytosis R&B of [employer] d/w Nephew who is POA. He is agreeable to HD. s/p vascath and first HD yesterday HD again today for clearance only, K bath 3.5 will assess dialysis needs daily will cont to monitor signs of renal recovery closely. Intubated on Vent now. renally dose meds Strict I&O In ICU Subjective Date of service: 04/28/21 Principal diagnosis: Acute respiratory failure Interval history: patient is intubated, status post HD yesterday Objective - Vital Signs Vital signs: Vital Signs - 12hr 04/27/21 04/27/21 04/27/21 21:30 21:45 22:00 Temperature Pulse Rate 111 H 113 H 100 H Pulse Rate [ From Monitor] Pulse Rate [ Left Dorsalis Pedis] Pulse Rate [ Left Radial] Pulse Rate [ Right Dorsalis Pedis] Pulse Rate [ Right Radial] Respiratory 31 H 28 H 24 Rate Blood Pressure 117/60 98/53 108/56 O2 Sat by Pulse 97 97 98 Oximetry O2 Sat by Pulse Oximetry [ Anterior Bilateral Upper Lobe] 04/27/21 04/27/21 04/27/21 22:15 22:30 22:45 Temperature Pulse Rate 95 H 94 H 92 H Pulse Rate [ From Monitor] Pulse Rate [ Left Dorsalis Pedis] Pulse Rate [ Left Radial] Pulse Rate [ Right Dorsalis Pedis] Pulse Rate [ Right Radial] Respiratory 21 24 25 H Rate Blood Pressure 125/60 123/57 138/60 O2 Sat by Pulse 99 100 100 Oximetry O2 Sat by Pulse Oximetry [ Anterior Bilateral Upper Lobe] 04/27/21 04/27/21 04/27/21 23:00 23:15 23:30 Temperature 97.7 F Pulse Rate 94 H 97 H 97 H Pulse Rate [ From Monitor] Pulse Rate [ Left Dorsalis Pedis] Pulse Rate [ Left Radial] Pulse Rate [ Right Dorsalis Pedis] Pulse Rate [ Right Radial] Respiratory 28 H 30 H 35 H Rate Blood Pressure 125/59 114/54 114/54 O2 Sat by Pulse 100 100 98 Oximetry O2 Sat by Pulse 98 Oximetry [ Anterior Bilateral Upper Lobe] 04/27/21 04/27/21 04/28/21 23:43 23:45 00:00 Temperature 97.6 F Pulse Rate 97 H 92 H 98 H Pulse Rate [ 99 H From Monitor] Pulse Rate [ Left Dorsalis Pedis] Pulse Rate [ Left Radial] Pulse Rate [ Right Dorsalis Pedis] Pulse Rate [ Right Radial] Respiratory 34 H 29 H Rate Blood Pressure 93/54 93/54 117/60 O2 Sat by Pulse 95 98 96 Oximetry O2 Sat by Pulse Oximetry [ Anterior Bilateral Upper Lobe] 04/28/21 04/28/21 04/28/21 00:12 00:15 00:30 Temperature Pulse Rate 93 H 96 H 96 H Pulse Rate [ From Monitor] Pulse Rate [ Left Dorsalis Pedis] Pulse Rate [ Left Radial] Pulse Rate [ Right Dorsalis Pedis] Pulse Rate [ Right Radial] Respiratory 32 H 32 H 34 H Rate Blood Pressure 117/60 110/54 109/53 O2 Sat by Pulse 99 100 97 Oximetry O2 Sat by Pulse Oximetry [ Anterior Bilateral Upper Lobe] 04/28/21 04/28/21 04/28/21 00:45 01:00 01:15 Temperature Pulse Rate 97 H 98 H 101 H Pulse Rate [ From Monitor] Pulse Rate [ Left Dorsalis Pedis] Pulse Rate [ Left Radial] Pulse Rate [ Right Dorsalis Pedis] Pulse Rate [ Right Radial] Respiratory 29 H 24 38 H Rate Blood Pressure 106/53 96/61 114/60 O2 Sat by Pulse 99 97 97 Oximetry O2 Sat by Pulse Oximetry [ Anterior Bilateral Upper Lobe] 04/28/21 04/28/21 04/28/21 01:30 01:45 02:00 Temperature Pulse Rate 96 H 94 H 102 H Pulse Rate [ From Monitor] Pulse Rate [ Left Dorsalis Pedis] Pulse Rate [ Left Radial] Pulse Rate [ Right Dorsalis Pedis] Pulse Rate [ Right Radial] Respiratory 31 H 26 H 22 Rate Blood Pressure 110/48 94/47 111/57 O2 Sat by Pulse 100 100 94 Oximetry O2 Sat by Pulse Oximetry [ Anterior Bilateral Upper Lobe] 04/28/21 04/28/21 04/28/21 02:15 02:30 02:45 Temperature Pulse Rate 100 H 98 H 101 H Pulse Rate [ From Monitor] Pulse Rate [ Left Dorsalis Pedis] Pulse Rate [ Left Radial] Pulse Rate [ Right Dorsalis Pedis] Pulse Rate [ Right Radial] Respiratory 30 H 35 H 25 H Rate Blood Pressure 109/55 120/51 100/58 O2 Sat by Pulse 100 97 99 Oximetry O2 Sat by Pulse Oximetry [ Anterior Bilateral Upper Lobe] 04/28/21 04/28/21 04/28/21 03:00 03:15 03:30 Temperature Pulse Rate 103 H 94 H 99 H Pulse Rate [ From Monitor] Pulse Rate [ Left Dorsalis Pedis] Pulse Rate [ Left Radial] Pulse Rate [ Right Dorsalis Pedis] Pulse Rate [ Right Radial] Respiratory 26 H 13 32 H Rate Blood Pressure 100/58 103/56 106/59 O2 Sat by Pulse 100 100 99 Oximetry O2 Sat by Pulse Oximetry [ Anterior Bilateral Upper Lobe] 04/28/21 04/28/21 04/28/21 03:45 04:00 04:15 Temperature 98.3 F Pulse Rate 92 H 88 92 H Pulse Rate [ 99 H From Monitor] Pulse Rate [ Left Dorsalis Pedis] Pulse Rate [ Left Radial] Pulse Rate [ Right Dorsalis Pedis] Pulse Rate [ Right Radial] Respiratory 22 30 H 26 H Rate Blood Pressure 97/53 85/52 109/52 O2 Sat by Pulse 99 98 100 Oximetry O2 Sat by Pulse Oximetry [ Anterior Bilateral Upper Lobe] 04/28/21 04/28/21 04/28/21 04:30 04:31 04:45 Temperature Pulse Rate 99 H 103 H 89 Pulse Rate [ From Monitor] Pulse Rate [ Left Dorsalis Pedis] Pulse Rate [ Left Radial] Pulse Rate [ Right Dorsalis Pedis] Pulse Rate [ Right Radial] Respiratory 23 20 Rate Blood Pressure 99/65 100/58 94/47 O2 Sat by Pulse 97 100 100 Oximetry O2 Sat by Pulse Oximetry [ Anterior Bilateral Upper Lobe] 04/28/21 04/28/21 04/28/21 05:00 05:15 05:30 Temperature Pulse Rate 88 86 88 Pulse Rate [ From Monitor] Pulse Rate [ Left Dorsalis Pedis] Pulse Rate [ Left Radial] Pulse Rate [ Right Dorsalis Pedis] Pulse Rate [ Right Radial] Respiratory 22 16 19 Rate Blood Pressure 100/47 94/49 94/51 O2 Sat by Pulse 100 100 100 Oximetry O2 Sat by Pulse Oximetry [ Anterior Bilateral Upper Lobe] 04/28/21 04/28/2122 05:45 06:00 06:15 Temperature Pulse Rate 86 90 92 H Pulse Rate [ From Monitor] Pulse Rate [ Left Dorsalis Pedis] Pulse Rate [ Left Radial] Pulse Rate [ Right Dorsalis Pedis] Pulse Rate [ Right Radial] Respiratory 25 H 23 22 Rate Blood Pressure 90/49 91/51 96/52 O2 Sat by Pulse 100 100 100 Oximetry O2 Sat by Pulse Oximetry [ Anterior Bilateral Upper Lobe] 04/28/21 04/28/21 04/28/21 06:30 06:45 07:00 Temperature Pulse Rate 96 H 89 91 H Pulse Rate [ From Monitor] Pulse Rate [ Left Dorsalis Pedis] Pulse Rate [ Left Radial] Pulse Rate [ Right Dorsalis Pedis] Pulse Rate [ Right Radial] Respiratory 23 25 H 27 H Rate Blood Pressure 111/53 101/50 109/52 O2 Sat by Pulse 100 100 100 Oximetry O2 Sat by Pulse Oximetry [ Anterior Bilateral Upper Lobe] 04/28/21 04/28/21 04/28/21 07:12 07:15 07:30 Temperature 99.3 F Pulse Rate 88 89 Pulse Rate [ From Monitor] Pulse Rate [ Left Dorsalis Pedis] Pulse Rate [ Left Radial] Pulse Rate [ Right Dorsalis Pedis] Pulse Rate [ Right Radial] Respiratory 26 H 18 Rate Blood Pressure 99/50 101/51 O2 Sat by Pulse 100 100 Oximetry O2 Sat by Pulse Oximetry [ Anterior Bilateral Upper Lobe] 04/28/21 04/28/21 04/28/21 07:45 08:00 08:11 Temperature Pulse Rate 88 89 87 Pulse Rate [ 89 From Monitor] Pulse Rate [ 90 Left Dorsalis Pedis] Pulse Rate [ 90 Left Radial] Pulse Rate [ 90 Right Dorsalis Pedis] Pulse Rate [ 90 Right Radial] Respiratory 23 19 Rate Blood Pressure 94/52 111/57 111/57 O2 Sat by Pulse 100 100 100 Oximetry O2 Sat by Pulse Oximetry [ Anterior Bilateral Upper Lobe] 04/28/21 04/28/21 04/28/21 08:15 08:30 08:45 Temperature Pulse Rate 107 H 89 91 H Pulse Rate [ From Monitor] Pulse Rate [ Left Dorsalis Pedis] Pulse Rate [ Left Radial] Pulse Rate [ Right Dorsalis Pedis] Pulse Rate [ Right Radial] Respiratory 22 29 H 19 Rate Blood Pressure 118/72 97/48 115/49 O2 Sat by Pulse 100 100 100 Oximetry O2 Sat by Pulse Oximetry [ Anterior Bilateral Upper Lobe] 04/28/21 04/28/21 09:00 09:15 Temperature Pulse Rate 89 90 Pulse Rate [ From Monitor] Pulse Rate [ Left Dorsalis Pedis] Pulse Rate [ Left Radial] Pulse Rate [ Right Dorsalis Pedis] Pulse Rate [ Right Radial] Respiratory 25 H 22 Rate Blood Pressure 110/53 115/53 O2 Sat by Pulse 100 100 Oximetry O2 Sat by Pulse Oximetry [ Anterior Bilateral Upper Lobe] - General Appearance General appearance: well-developed, well-nourished, intubated EENT: ATNC, PERRL, mucous membranes dry Neck: no JVD, no carotid bruit Respiratory: Present: Decreased Breath Sounds Cardiology: regular, tachycardia Gastrointestinal: normoactive bowel sounds, no tenderness, no distended, no masses Integumentary: no rash, warm and dry Neurologic: other (intubated) Musculoskeletal: other (swelling in RLE>LLE) Psychiatric: other (intubated) - Lab 04/28/21 04:00 04/28/21 04:00 Most recent lab results ABG pH 7.438 (7.320-7.450) 04/28/21 05:18 ABG pCO2 31.6 mm Hg 04/21/21 15:47 ABG pO2 168.1 mm Hg (80.0-90.0) H 04/21/21 15:47 ABG HCO3 23.3 mmol/L (20.0-26.0) 04/21/21 15:47 ABG O2 Saturation 93.1 (0-100) 04/28/21 05:18 Calcium 8.1 mg/dL (8.4-10.2) L 04/28/21 04:00 Phosphorus 5.60 mg/dL (2.5-4.5) H D 04/26/21 09:33 Magnesium 2.50 mg/dL (1.7-2.3) H 04/25/21 08:11 Urine Creatinine 44.3 mg/dL (0.1-20.0) H 04/21/21 08:01 Urine Sodium 71 mmol/L 04/21/21 08:01 Urine Total Protein 12 mg/dL (5-11.8) H 04/21/21 08:01 Medications & Allergies - Medications Allergies/Adverse Reactions: Allergies No Known Allergies Allergy (Unverified 04/20/21 14:35) Active Medications: Generic Name Dose Route Start Last Admin Trade Name Freq PRN Reason Stop Dose Admin Acetaminophen 650 mg 04/20/21 21:31 Acetaminophen 325 Mg Tab PO Q4H PRN Pain MILD(1-3)/Fever >100.5/TURCIOS Albuterol 2.5 mg 04/22/21 14:49 04/23/21 15:18 Albuterol 2.5 Mg/3 Ml Nebu IH 2.5 mg Q4HRT PRN Administration Shortness Of Breath Lipase/Protease/Amylase 1 each 04/25/21 14:13 Lipase 10,500/Protease 25,000/Amylase 43,750 (Units) Dr Vasquez FEEDTUBE PRN PRN For Clogged Feeding Tube Dextrose 50 ml 04/24/21 11:36 Dextrose 50% In Water (25gm) 50 Ml Syringe IV Q30MIN PRN Hypoglycemia Protocol Famotidine 10 mg 04/27/21 10:00 04/28/21 09:03 Famotidine 10 Mg Tab FEEDTUBE 10 mg BID AZIZA Administration Hydralazine HCl 10 mg 04/24/21 21:22 Hydralazine 20 Mg/1 Ml Inj IV Q4HR PRN elevated BP Hydrophilic Ointment 1 applic 04/26/21 11:16 Lip Therapy Vaseline TP Q2HR PRN Dry Lips NORepinephrine/NS 8 MG-250 ML 8 mg in 250 mls @ 3.75 mls/hr 04/26/21 16:00 04/28/21 03:07 Norepinephrine/Ns 8 Mg-250 Ml (Double Conc) IV 3 mcg/min TITRATE AZIZA 5.625 mls/hr Titration Protocol 2 MCG/MIN Sodium Chloride 100 mls @ 999 mls/hr 04/27/21 10:43 Nacl 0.9% IV MITCH PRN Hypotension Insulin Human Lispro 0 unit 04/25/21 18:00 04/28/21 05:29 Insulin Lispro 100 Unit/Ml SUB-Q 3 unit Q6HR AZIZA Administration Protocol Insulin Human NPH 30 unit 04/26/21 10:00 04/28/21 09:03 Insulin Nph, Human 100 Unit/1 Ml SUB-Q 30 unit Q12HR AZIZA Administration Lorazepam 1 mg 04/26/21 11:15 Lorazepam 2 Mg/Ml Vial IV Q4H PRN Sedation Metoclopramide HCl 5 mg 04/20/21 21:31 Metoclopramide 10 Mg/2 Ml Inj IV Q6H PRN Nausea And Vomiting Multi-Ingred Cream/Lotion/Oil/Oint 1 applic 04/26/21 11:16 Mineral Oil/Petrolatum, White Ophth Oint 3.5 Gm OU Q4HR PRN Dry Eye(s) Ondansetron HCl 4 mg 04/20/21 21:31 Ondansetron 4 Mg/2 Ml Inj IV Q8H PRN Nausea And Vomiting Potassium Chloride 40 meq 04/28/21 08:30 04/28/21 09:03 Potassium Chloride 20 Meq Packet FEEDTUBE 04/28/21 12:30 40 meq ONCE@0830 AZIZA Administration Senna/Docusate Sodium 1 tab 04/26/21 22:00 04/28/21 09:03 Sennosides/Docusate Sodium 8.6/50 Mg Tab FEEDTUBE 1 tab BID AZIZA Administration Simple Syrup 15 ml 04/25/21 14:13 Simple Syrup 15 Ml FEEDTUBE PRN PRN Hypoglycemia Simple Syrup 30 ml 04/25/21 14:13 Simple Syrup 15 Ml FEEDTUBE PRN PRN Hypoglycemia Sodium Bicarbonate 325 mg 04/25/21 14:13 04/27/21 13:00 Sodium Bicarbonate 325 Mg Tab FEEDTUBE 325 mg PRN PRN Administration For Clogged Feeding Tube Sodium Bicarbonate 1,300 mg 04/27/21 14:00 04/28/21 09:02 Sodium Bicarbonate 650 Mg Tab PO 1,300 mg TID AZIZA Administration Sodium Chloride 10 ml 04/20/21 22:00 04/28/21 09:04 Sodium Chloride 0.9% 10 Ml Flush Syringe IV 10 ml BID AZIZA Administration Sodium Chloride 10 ml 04/20/21 21:31 Sodium Chloride 0.9% 10 Ml Flush Syringe IV PRN PRN LINE FLUSH
--- NOTE | 2021-04-28 09:43 | Progress Note ---
Assessment and Plan 80 y/o female with altered mental state, severe electrolyte imbalance with presumptive acute renal failure and hypothermia. 04/28/21: Will discuss with renal about HD again today. MRI vs LP (large amount). Coags are ok. Will attempt to get at least one of these done today. Patient is still on 80% but sat is 100. Will ask CARE WORKER about placing ART line today. Wean FiO2 as tolerated. Guarded prognosis. 04/27/21: HD today per renal. Vascath placed and awaiting CXR for conformation of good placement (done and good). Vent weaning as tolerated for sats >88%. ABG in the AM. Will check Coags in the am and hopeful these are stable. P latelets need to above 50K. Would like to do large volume spinal tap to see if this helps with mentation. Will also obtain MRI once oxygen requirement improves. 04/26/21: WIll electively intubate and then obtain MRI. Pending MRI results, will likely order large volume spinal tap to assess if NPH is a factor or not. Guarded prognosis. Electrolytes are improving. 04/25/21: Continue to follow renal recs. Will reach out to POA either today or tomorrow for further updates. Follow up renal recs. Monitor electrolytes and renal function. Guarded prognosis. 1. Neuro-reached out to neuro surgery, placed consult in regards to CT findings 2. Renal-appreciate help and recs, will follow IV hydration recommendations 3. Blood cultures. Urine was negative 4. Jorge Irvinggger for temp Guarded prognosis CCT 31 minutes. Subjective Date of service: 04/28/21 Principal diagnosis: Acute respiratory failure Interval history: No acute events. Had about 2 hours of HD from what I can tell from the chart. Numbers are better this am. Down to 80%. Still on Levophed at 3. Not responsive. Objective Vital Signs - 12hr 04/27/21 04/27/21 04/27/21 21:45 22:00 22:15 Temperature Pulse Rate 113 H 100 H 95 H Pulse Rate [ From Monitor] Pulse Rate [ Left Dorsalis Pedis] Pulse Rate [ Left Radial] Pulse Rate [ Right Dorsalis Pedis] Pulse Rate [ Right Radial] Respiratory 28 H 24 21 Rate Blood Pressure 98/53 108/56 125/60 O2 Sat by Pulse 97 98 99 Oximetry O2 Sat by Pulse Oximetry [ Anterior Bilateral Upper Lobe] 04/27/21 04/27/21 04/27/21 22:30 22:45 23:00 Temperature Pulse Rate 94 H 92 H 94 H Pulse Rate [ From Monitor] Pulse Rate [ Left Dorsalis Pedis] Pulse Rate [ Left Radial] Pulse Rate [ Right Dorsalis Pedis] Pulse Rate [ Right Radial] Respiratory 24 25 H 28 H Rate Blood Pressure 123/57 138/60 125/59 O2 Sat by Pulse 100 100 100 Oximetry O2 Sat by Pulse Oximetry [ Anterior Bilateral Upper Lobe] 04/27/21 04/27/21 04/27/21 23:15 23:30 23:43 Temperature 97.7 F Pulse Rate 97 H 97 H 97 H Pulse Rate [ From Monitor] Pulse Rate [ Left Dorsalis Pedis] Pulse Rate [ Left Radial] Pulse Rate [ Right Dorsalis Pedis] Pulse Rate [ Right Radial] Respiratory 30 H 35 H Rate Blood Pressure 114/54 114/54 93/54 O2 Sat by Pulse 100 98 95 Oximetry O2 Sat by Pulse 98 Oximetry [ Anterior Bilateral Upper Lobe] 04/27/21 04/28/21 04/28/21 23:45 00:00 00:12 Temperature 97.6 F Pulse Rate 92 H 98 H 93 H Pulse Rate [ 99 H From Monitor] Pulse Rate [ Left Dorsalis Pedis] Pulse Rate [ Left Radial] Pulse Rate [ Right Dorsalis Pedis] Pulse Rate [ Right Radial] Respiratory 34 H 29 H 32 H Rate Blood Pressure 93/54 117/60 117/60 O2 Sat by Pulse 98 96 99 Oximetry O2 Sat by Pulse Oximetry [ Anterior Bilateral Upper Lobe] 04/28/21 04/28/21 04/28/21 00:15 00:30 00:45 Temperature Pulse Rate 96 H 96 H 97 H Pulse Rate [ From Monitor] Pulse Rate [ Left Dorsalis Pedis] Pulse Rate [ Left Radial] Pulse Rate [ Right Dorsalis Pedis] Pulse Rate [ Right Radial] Respiratory 32 H 34 H 29 H Rate Blood Pressure 110/54 109/53 106/53 O2 Sat by Pulse 100 97 99 Oximetry O2 Sat by Pulse Oximetry [ Anterior Bilateral Upper Lobe] 04/28/21 04/28/21 04/28/21 01:00 01:15 01:30 Temperature Pulse Rate 98 H 101 H 96 H Pulse Rate [ From Monitor] Pulse Rate [ Left Dorsalis Pedis] Pulse Rate [ Left Radial] Pulse Rate [ Right Dorsalis Pedis] Pulse Rate [ Right Radial] Respiratory 24 38 H 31 H Rate Blood Pressure 96/61 114/60 110/48 O2 Sat by Pulse 97 97 100 Oximetry O2 Sat by Pulse Oximetry [ Anterior Bilateral Upper Lobe] 04/28/21 04/28/21 04/28/21 01:45 02:00 02:15 Temperature Pulse Rate 94 H 102 H 100 H Pulse Rate [ From Monitor] Pulse Rate [ Left Dorsalis Pedis] Pulse Rate [ Left Radial] Pulse Rate [ Right Dorsalis Pedis] Pulse Rate [ Right Radial] Respiratory 26 H 22 30 H Rate Blood Pressure 94/47 111/57 109/55 O2 Sat by Pulse 100 94 100 Oximetry O2 Sat by Pulse Oximetry [ Anterior Bilateral Upper Lobe] 04/28/21 04/28/21 04/28/21 02:30 02:45 03:00 Temperature Pulse Rate 98 H 101 H 103 H Pulse Rate [ From Monitor] Pulse Rate [ Left Dorsalis Pedis] Pulse Rate [ Left Radial] Pulse Rate [ Right Dorsalis Pedis] Pulse Rate [ Right Radial] Respiratory 35 H 25 H 26 H Rate Blood Pressure 120/51 100/58 100/58 O2 Sat by Pulse 97 99 100 Oximetry O2 Sat by Pulse Oximetry [ Anterior Bilateral Upper Lobe] 04/28/21 04/28/21 04/28/21 03:15 03:30 03:45 Temperature Pulse Rate 94 H 99 H 92 H Pulse Rate [ From Monitor] Pulse Rate [ Left Dorsalis Pedis] Pulse Rate [ Left Radial] Pulse Rate [ Right Dorsalis Pedis] Pulse Rate [ Right Radial] Respiratory 13 32 H 22 Rate Blood Pressure 103/56 106/59 97/53 O2 Sat by Pulse 100 99 99 Oximetry O2 Sat by Pulse Oximetry [ Anterior Bilateral Upper Lobe] 04/28/21 04/28/21 04/28/21 04:00 04:15 04:30 Temperature 98.3 F Pulse Rate 88 92 H 99 H Pulse Rate [ 99 H From Monitor] Pulse Rate [ Left Dorsalis Pedis] Pulse Rate [ Left Radial] Pulse Rate [ Right Dorsalis Pedis] Pulse Rate [ Right Radial] Respiratory 30 H 26 H 23 Rate Blood Pressure 85/52 109/52 99/65 O2 Sat by Pulse 98 100 97 Oximetry O2 Sat by Pulse Oximetry [ Anterior Bilateral Upper Lobe] 04/28/21 04/28/21 04/28/21 04:31 04:45 05:00 Temperature Pulse Rate 103 H 89 88 Pulse Rate [ From Monitor] Pulse Rate [ Left Dorsalis Pedis] Pulse Rate [ Left Radial] Pulse Rate [ Right Dorsalis Pedis] Pulse Rate [ Right Radial] Respiratory 20 22 Rate Blood Pressure 100/58 94/47 100/47 O2 Sat by Pulse 100 100 100 Oximetry O2 Sat by Pulse Oximetry [ Anterior Bilateral Upper Lobe] 04/28/21 04/28/21 04/28/21 05:15 05:30 05:45 Temperature Pulse Rate 86 88 86 Pulse Rate [ From Monitor] Pulse Rate [ Left Dorsalis Pedis] Pulse Rate [ Left Radial] Pulse Rate [ Right Dorsalis Pedis] Pulse Rate [ Right Radial] Respiratory 16 19 25 H Rate Blood Pressure 94/49 94/51 90/49 O2 Sat by Pulse 100 100 100 Oximetry O2 Sat by Pulse Oximetry [ Anterior Bilateral Upper Lobe] 04/28/21 04/28/21 04/28/21 06:00 06:15 06:30 Temperature Pulse Rate 90 92 H 96 H Pulse Rate [ From Monitor] Pulse Rate [ Left Dorsalis Pedis] Pulse Rate [ Left Radial] Pulse Rate [ Right Dorsalis Pedis] Pulse Rate [ Right Radial] Respiratory 23 22 23 Rate Blood Pressure 91/51 96/52 111/53 O2 Sat by Pulse 100 100 100 Oximetry O2 Sat by Pulse Oximetry [ Anterior Bilateral Upper Lobe] 04/28/21 04/28/21 04/28/21 06:45 07:00 07:12 Temperature 99.3 F Pulse Rate 89 91 H Pulse Rate [ From Monitor] Pulse Rate [ Left Dorsalis Pedis] Pulse Rate [ Left Radial] Pulse Rate [ Right Dorsalis Pedis] Pulse Rate [ Right Radial] Respiratory 25 H 27 H Rate Blood Pressure 101/50 109/52 O2 Sat by Pulse 100 100 Oximetry O2 Sat by Pulse Oximetry [ Anterior Bilateral Upper Lobe] 04/28/21 04/28/21 04/28/21 07:15 07:30 07:45 Temperature Pulse Rate 88 89 88 Pulse Rate [ From Monitor] Pulse Rate [ Left Dorsalis Pedis] Pulse Rate [ Left Radial] Pulse Rate [ Right Dorsalis Pedis] Pulse Rate [ Right Radial] Respiratory 26 H 18 23 Rate Blood Pressure 99/50 101/51 94/52 O2 Sat by Pulse 100 100 100 Oximetry O2 Sat by Pulse Oximetry [ Anterior Bilateral Upper Lobe] 04/28/21 04/28/21 04/28/21 08:00 08:11 08:15 Temperature Pulse Rate 89 87 107 H Pulse Rate [ 89 From Monitor] Pulse Rate [ 90 Left Dorsalis Pedis] Pulse Rate [ 90 Left Radial] Pulse Rate [ 90 Right Dorsalis Pedis] Pulse Rate [ 90 Right Radial] Respiratory 19 22 Rate Blood Pressure 111/57 111/57 118/72 O2 Sat by Pulse 100 100 100 Oximetry O2 Sat by Pulse Oximetry [ Anterior Bilateral Upper Lobe] 04/28/21 04/28/21 04/28/21 08:30 08:45 09:00 Temperature Pulse Rate 89 91 H 89 Pulse Rate [ From Monitor] Pulse Rate [ Left Dorsalis Pedis] Pulse Rate [ Left Radial] Pulse Rate [ Right Dorsalis Pedis] Pulse Rate [ Right Radial] Respiratory 29 H 19 25 H Rate Blood Pressure 97/48 115/49 110/53 O2 Sat by Pulse 100 100 100 Oximetry O2 Sat by Pulse Oximetry [ Anterior Bilateral Upper Lobe] 04/28/21 09:15 Temperature Pulse Rate 90 Pulse Rate [ From Monitor] Pulse Rate [ Left Dorsalis Pedis] Pulse Rate [ Left Radial] Pulse Rate [ Right Dorsalis Pedis] Pulse Rate [ Right Radial] Respiratory 22 Rate Blood Pressure 115/53 O2 Sat by Pulse 100 Oximetry O2 Sat by Pulse Oximetry [ Anterior Bilateral Upper Lobe] Constitutional: other (critically ill, somnolent) Eyes: non-icteric ENT: oropharynx dry Effort: other (tachypneic but not labored) Ascultation: Bilateral: clear Cardiovascular: regular rate and rhythm Gastrointestinal: normoactive bowel sounds, soft, non-tender, non-distended Integumentary: normal Extremities: no cyanosis, no edema, pink and warm Neurologic: unable to assess Psychiatric: other (unable to assess) CBC and BMP: 04/28/21 04:00 04/28/21 04:00 ABG, PT/INR, D-dimer: ABG ABG pH 7.438 (7.320-7.450) 04/28/21 05:18 POC ABG pCO2 37.7 mmHg (32.0-48.0) 04/28/21 05:18 ABG pCO2 31.6 mm Hg 04/21/21 15:47 POC ABG pO2 66.5 mmHg (83-108) L 04/28/21 05:18 ABG pO2 168.1 mm Hg (80.0-90.0) H 04/21/21 15:47 POC ABG HCO3 24.9 04/28/21 05:18 ABG O2 Saturation 93.1 (0-100) 04/28/21 05:18 PT/INR, D-dimer PT 15.3 Sec. (12.2-14.9) H 04/28/21 05:00 INR 1.09 (0.87-1.13) 04/28/21 05:00 Abnormal lab findings: Abnormal Labs 04/20/21 04/20/21 04/20/21 17:10 17:10 17:10 WBC 17.4 H RBC 5.19 H Hgb Hct 46.8 H MCH 27 L RDW 17.2 H Plt Count Seg Neuts % (Manual) 98.0 H Lymphocytes % (Manual) 2.0 L Nucleated RBC % 1.0 H Seg Neutrophils # Man 17.1 H Lymphocytes # (Manual) 0.3 L PT ABG pH POC ABG pO2 ABG pO2 ABG O2 Saturation ABG Base Excess ABG Hemoglobin ABG Oxyhemoglobin ABG Potassium ABG Chloride ABG Glucose Oxyhemoglobin Sodium 173 H* Potassium Chloride 132.9 H Carbon Dioxide 17 L BUN 120 H Creatinine 4.2 H Glucose 762 H* POC Glucose Hemoglobin A1c Lactic Acid Calcium Phosphorus Magnesium 3.80 H Transferrin AST 72 H ALT 63 H Alkaline Phosphatase 148 H Total Creatine Kinase 3697 H CK-MB (CK-2) 36.0 H Serum Total Protein Total Protein Albumin 2.2 L Yzqyw-2-Bxcaduacm Slfit-8-Bhgpmfudq Gamma Globulins PEP Interpretation TSH Arterial Blood Glucose Arterial Blood Ionized Calcium Urine Creatinine Urine Total Protein 04/20/21 04/20/21 04/20/21 17:10 17:10 18:55 WBC RBC Hgb Hct MCH RDW Plt Count Seg Neuts % (Manual) Lymphocytes % (Manual) Nucleated RBC % Seg Neutrophils # Man Lymphocytes # (Manual) PT ABG pH POC ABG pO2 ABG pO2 ABG O2 Saturation ABG Base Excess ABG Hemoglobin ABG Oxyhemoglobin ABG Potassium ABG Chloride ABG Glucose Oxyhemoglobin Sodium Potassium Chloride Carbon Dioxide BUN Creatinine Glucose POC Glucose 574 H Hemoglobin A1c Lactic Acid 2.60 H* Calcium Phosphorus Magnesium Transferrin AST ALT Alkaline Phosphatase Total Creatine Kinase CK-MB (CK-2) Serum Total Protein Total Protein Albumin Chshh-3-Zvhnfogyg Xjgfx-4-Urtlmaiqp Gamma Globulins PEP Interpretation TSH 6.040 H Arterial Blood Glucose Arterial Blood Ionized Calcium Urine Creatinine Urine Total Protein 04/20/21 04/20/21 04/21/21 22:58 22:58 00:14 WBC RBC Hgb Hct MCH RDW Plt Count Seg Neuts % (Manual) Lymphocytes % (Manual) Nucleated RBC % Seg Neutrophils # Man Lymphocytes # (Manual) PT ABG pH POC ABG pO2 ABG pO2 ABG O2 Saturation ABG Base Excess ABG Hemoglobin ABG Oxyhemoglobin ABG Potassium ABG Chloride ABG Glucose Oxyhemoglobin Sodium 172 H* Potassium 3.2 L Chloride 134.2 H Carbon Dioxide 17 L BUN 112 H Creatinine 3.8 H Glucose 803 H* POC Glucose > 600 H Hemoglobin A1c Lactic Acid Calcium 8.3 L Phosphorus Magnesium 3.50 H Transferrin AST ALT Alkaline Phosphatase Total Creatine Kinase CK-MB (CK-2) Serum Total Protein Total Protein Albumin Xthgo-2-Lzwiantab Icebp-9-Kablvlxyl Gamma Globulins PEP Interpretation TSH Arterial Blood Glucose Arterial Blood Ionized Calcium Urine Creatinine Urine Total Protein 04/21/21 04/21/21 04/21/21 00:22 02:01 03:11 WBC RBC Hgb Hct MCH RDW Plt Count Seg Neuts % (Manual) Lymphocytes % (Manual) Nucleated RBC % Seg Neutrophils # Man Lymphocytes # (Manual) PT ABG pH POC ABG pO2 ABG pO2 ABG O2 Saturation ABG Base Excess ABG Hemoglobin ABG Oxyhemoglobin ABG Potassium ABG Chloride ABG Glucose Oxyhemoglobin Sodium 176 H* 175 H* Potassium 2.9 L* 3.0 L Chloride 139.9 H 136.2 H Carbon Dioxide 17 L 19 L BUN 113 H 112 H Creatinine 3.9 H 3.6 H Glucose 729 H* 582 H* POC Glucose 404 H Hemoglobin A1c Lactic Acid Calcium Phosphorus Magnesium Transferrin AST ALT Alkaline Phosphatase Total Creatine Kinase CK-MB (CK-2) Serum Total Protein Total Protein Albumin Obaap-5-Nlkvlaadp Wuovp-3-Tzhhirjqs Gamma Globulins PEP Interpretation TSH Arterial Blood Glucose Arterial Blood Ionized Calcium Urine Creatinine Urine Total Protein 04/21/21 04/21/21 04/21/21 03:20 03:41 03:41 WBC 14.1 H RBC Hgb Hct MCH 27 L RDW 16.8 H Plt Count 114 L Seg Neuts % (Manual) 97.0 H Lymphocytes % (Manual) 3.0 L Nucleated RBC % 1.0 H Seg Neutrophils # Man 13.7 H Lymphocytes # (Manual) 0.4 L PT ABG pH POC ABG pO2 ABG pO2 52.3 L ABG O2 Saturation 84.5 L ABG Base Excess -2.9 L ABG Hemoglobin ABG Oxyhemoglobin ABG Potassium ABG Chloride ABG Glucose Oxyhemoglobin 82.9 L Sodium 179 H* Potassium 2.9 L* Chloride 138.2 H Carbon Dioxide 20 L BUN 111 H Creatinine 3.7 H Glucose 465 H POC Glucose Hemoglobin A1c Lactic Acid Calcium Phosphorus Magnesium Transferrin AST 73 H ALT 61 H Alkaline Phosphatase 144 H Total Creatine Kinase CK-MB (CK-2) Serum Total Protein Total Protein Albumin 2.5 L Qdmea-1-Xbjwmjjxy Wweye-5-Lftxnrage Gamma Globulins PEP Interpretation TSH Arterial Blood Glucose Arterial Blood Ionized Calcium Urine Creatinine Urine Total Protein 04/21/21 04/21/21 04/21/21 04:24 05:45 06:47 WBC RBC Hgb Hct MCH RDW Plt Count Seg Neuts % (Manual) Lymphocytes % (Manual) Nucleated RBC % Seg Neutrophils # Man Lymphocytes # (Manual) PT ABG pH POC ABG pO2 ABG pO2 ABG O2 Saturation ABG Base Excess ABG Hemoglobin ABG Oxyhemoglobin ABG Potassium ABG Chloride ABG Glucose Oxyhemoglobin Sodium Potassium Chloride Carbon Dioxide BUN Creatinine Glucose POC Glucose 353 H 280 H 260 H Hemoglobin A1c Lactic Acid Calcium Phosphorus Magnesium Transferrin AST ALT Alkaline Phosphatase Total Creatine Kinase CK-MB (CK-2) Serum Total Protein Total Protein Albumin Acsya-5-Qwhvkgngv Rjxon-2-Cibzundql Gamma Globulins PEP Interpretation TSH Arterial Blood Glucose Arterial Blood Ionized Calcium Urine Creatinine Urine Total Protein 04/21/21 04/21/21 04/21/21 08:01 11:11 12:51 WBC RBC Hgb Hct MCH RDW Plt Count Seg Neuts % (Manual) Lymphocytes % (Manual) Nucleated RBC % Seg Neutrophils # Man Lymphocytes # (Manual) PT ABG pH POC ABG pO2 ABG pO2 ABG O2 Saturation ABG Base Excess ABG Hemoglobin ABG Oxyhemoglobin ABG Potassium ABG Chloride ABG Glucose Oxyhemoglobin Sodium Potassium Chloride Carbon Dioxide BUN Creatinine Glucose POC Glucose 68 L 146 H Hemoglobin A1c Lactic Acid Calcium Phosphorus Magnesium Transferrin AST ALT Alkaline Phosphatase Total Creatine Kinase CK-MB (CK-2) Serum Total Protein Total Protein Albumin Wuhnj-5-Cvbcpawaz Azjhn-7-Ydofafwqn Gamma Globulins PEP Interpretation TSH Arterial Blood Glucose Arterial Blood Ionized Calcium Urine Creatinine 44.3 H Urine Total Protein 12 H 04/21/21 04/21/21 04/21/21 13:41 14:40 15:47 WBC RBC Hgb Hct MCH RDW Plt Count Seg Neuts % (Manual) Lymphocytes % (Manual) Nucleated RBC % Seg Neutrophils # Man Lymphocytes # (Manual) PT ABG pH 7.275 L 7.486 H POC ABG pO2 63.4 L ABG pO2 168.1 H ABG O2 Saturation 99.1 H ABG Base Excess ABG Hemoglobin 8.4 L 8.9 L ABG Oxyhemoglobin 89.5 L ABG Potassium ABG Chloride 108.0 H ABG Glucose 404 H Oxyhemoglobin Sodium Potassium Chloride Carbon Dioxide BUN Creatinine Glucose POC Glucose 186 H Hemoglobin A1c Lactic Acid Calcium Phosphorus Magnesium Transferrin AST ALT Alkaline Phosphatase Total Creatine Kinase CK-MB (CK-2) Serum Total Protein Total Protein Albumin Nribh-0-Jsrvrsoay Myxuy-0-Reyznavfg Gamma Globulins PEP Interpretation TSH Arterial Blood Glucose 404 H Arterial Blood Ionized Calcium Urine Creatinine Urine Total Protein 04/21/21 04/21/21 04/21/21 16:25 17:57 18:49 WBC RBC Hgb Hct MCH RDW Plt Count Seg Neuts % (Manual) Lymphocytes % (Manual) Nucleated RBC % Seg Neutrophils # Man Lymphocytes # (Manual) PT ABG pH POC ABG pO2 ABG pO2 ABG O2 Saturation ABG Base Excess ABG Hemoglobin ABG Oxyhemoglobin ABG Potassium ABG Chloride ABG Glucose Oxyhemoglobin Sodium 174 H* Potassium 7.2 H* D Chloride 138.2 H Carbon Dioxide 21 L BUN 99 H Creatinine 4.0 H Glucose 157 H POC Glucose 172 H 143 H Hemoglobin A1c Lactic Acid Calcium Phosphorus Magnesium Transferrin AST 134 H ALT 71 H Alkaline Phosphatase 135 H Total Creatine Kinase 3504 H CK-MB (CK-2) Serum Total Protein Total Protein Albumin 2.2 L Licwp-4-Qhaoxrlgs Ghtay-4-Kkqwldacq Gamma Globulins PEP Interpretation TSH Arterial Blood Glucose Arterial Blood Ionized Calcium Urine Creatinine Urine Total Protein 04/21/21 04/21/21 04/21/21 19:10 20:26 20:53 WBC RBC Hgb Hct MCH RDW Plt Count Seg Neuts % (Manual) Lymphocytes % (Manual) Nucleated RBC % Seg Neutrophils # Man Lymphocytes # (Manual) PT ABG pH POC ABG pO2 ABG pO2 ABG O2 Saturation ABG Base Excess ABG Hemoglobin ABG Oxyhemoglobin ABG Potassium ABG Chloride ABG Glucose Oxyhemoglobin Sodium Potassium Chloride Carbon Dioxide BUN Creatinine Glucose POC Glucose 126 H 190 H 116 H Hemoglobin A1c Lactic Acid Calcium Phosphorus Magnesium Transferrin AST ALT Alkaline Phosphatase Total Creatine Kinase CK-MB (CK-2) Serum Total Protein Total Protein Albumin Pruzk-1-Ffvqeoysz Xnyry-6-Idgnbytvw Gamma Globulins PEP Interpretation TSH Arterial Blood Glucose Arterial Blood Ionized Calcium Urine Creatinine Urine Total Protein 04/21/21 04/21/21 04/21/21 21:52 22:55 23:00 WBC RBC Hgb Hct MCH RDW Plt Count Seg Neuts % (Manual) Lymphocytes % (Manual) Nucleated RBC % Seg Neutrophils # Man Lymphocytes # (Manual) PT ABG pH POC ABG pO2 ABG pO2 ABG O2 Saturation ABG Base Excess ABG Hemoglobin ABG Oxyhemoglobin ABG Potassium ABG Chloride ABG Glucose Oxyhemoglobin Sodium 176 H* Potassium Chloride 140.0 H Carbon Dioxide 20 L BUN 98 H Creatinine 3.9 H Glucose 206 H POC Glucose 135 H 158 H Hemoglobin A1c Lactic Acid Calcium Phosphorus Magnesium Transferrin AST ALT Alkaline Phosphatase Total Creatine Kinase 3240 H CK-MB (CK-2) Serum Total Protein Total Protein Albumin Nimgb-7-Wlfwsruwr Mnmfe-4-Nyyxixphv Gamma Globulins PEP Interpretation TSH Arterial Blood Glucose Arterial Blood Ionized Calcium Urine Creatinine Urine Total Protein 04/22/21 04/22/21 04/22/21 00:01 00:39 00:58 WBC RBC Hgb Hct MCH RDW Plt Count Seg Neuts % (Manual) Lymphocytes % (Manual) Nucleated RBC % Seg Neutrophils # Man Lymphocytes # (Manual) PT ABG pH POC ABG pO2 ABG pO2 ABG O2 Saturation ABG Base Excess ABG Hemoglobin ABG Oxyhemoglobin ABG Potassium ABG Chloride ABG Glucose Oxyhemoglobin Sodium 171 H* Potassium Chloride Carbon Dioxide BUN Creatinine Glucose POC Glucose 182 H 176 H Hemoglobin A1c Lactic Acid Calcium Phosphorus Magnesium Transferrin AST ALT Alkaline Phosphatase Total Creatine Kinase CK-MB (CK-2) Serum Total Protein Total Protein Albumin Fetyk-2-Tumbwjtkq Srgxo-7-Dphflssls Gamma Globulins PEP Interpretation TSH Arterial Blood Glucose Arterial Blood Ionized Calcium Urine Creatinine Urine Total Protein 04/22/21 04/22/21 04/22/21 01:04 04:52 06:07 WBC 11.2 H RBC Hgb Hct 44.3 H MCH 27 L RDW 17.1 H Plt Count 86 L Seg Neuts % (Manual) 86.0 H Lymphocytes % (Manual) 13.0 L Nucleated RBC % Seg Neutrophils # Man 9.6 H Lymphocytes # (Manual) PT ABG pH POC ABG pO2 ABG pO2 ABG O2 Saturation ABG Base Excess ABG Hemoglobin ABG Oxyhemoglobin ABG Potassium ABG Chloride ABG Glucose Oxyhemoglobin Sodium Potassium Chloride Carbon Dioxide BUN Creatinine Glucose POC Glucose 143 H 206 H Hemoglobin A1c Lactic Acid Calcium Phosphorus Magnesium Transferrin AST ALT Alkaline Phosphatase Total Creatine Kinase CK-MB (CK-2) Serum Total Protein Total Protein Albumin Vjvcc-2-Leliiydua Gectd-7-Qmvpzbewa Gamma Globulins PEP Interpretation TSH Arterial Blood Glucose Arterial Blood Ionized Calcium Urine Creatinine Urine Total Protein 04/22/21 04/22/21 04/22/21 06:09 07:18 08:59 WBC RBC Hgb Hct MCH RDW Plt Count Seg Neuts % (Manual) Lymphocytes % (Manual) Nucleated RBC % Seg Neutrophils # Man Lymphocytes # (Manual) PT ABG pH POC ABG pO2 ABG pO2 ABG O2 Saturation ABG Base Excess ABG Hemoglobin ABG Oxyhemoglobin ABG Potassium ABG Chloride ABG Glucose Oxyhemoglobin Sodium Potassium Chloride Carbon Dioxide BUN Creatinine Glucose POC Glucose 163 H 158 H Hemoglobin A1c Lactic Acid Calcium Phosphorus Magnesium Transferrin AST ALT Alkaline Phosphatase Total Creatine Kinase 3105 H CK-MB (CK-2) Serum Total Protein Total Protein Albumin Izaci-5-Duibhepci Ciebn-6-Mfvvvdxqj Gamma Globulins PEP Interpretation TSH Arterial Blood Glucose Arterial Blood Ionized Calcium Urine Creatinine Urine Total Protein 04/22/21 04/22/21 04/22/21 08:59 08:59 09:44 WBC RBC Hgb Hct MCH RDW Plt Count Seg Neuts % (Manual) Lymphocytes % (Manual) Nucleated RBC % Seg Neutrophils # Man Lymphocytes # (Manual) PT ABG pH POC ABG pO2 ABG pO2 ABG O2 Saturation ABG Base Excess ABG Hemoglobin ABG Oxyhemoglobin ABG Potassium ABG Chloride ABG Glucose Oxyhemoglobin Sodium 169 H* Potassium 3.5 L Chloride 134.5 H Carbon Dioxide 20 L BUN 95 H Creatinine 3.6 H Glucose 151 H POC Glucose Hemoglobin A1c Lactic Acid Calcium Phosphorus Magnesium 2.80 H Transferrin AST 121 H ALT 75 H Alkaline Phosphatase 137 H Total Creatine Kinase CK-MB (CK-2) Serum Total Protein 5.5 L Total Protein 6.0 L Albumin 2.8 L 2.1 L Lkjnm-5-Gqgtnjlih 0.6 H Rfvyy-2-Pfoxqskqc 1.0 H Gamma Globulins 0.6 L PEP Interpretation see below H TSH Arterial Blood Glucose Arterial Blood Ionized Calcium Urine Creatinine Urine Total Protein 04/22/21 04/22/21 04/22/21 10:24 12:20 13:19 WBC RBC Hgb Hct MCH RDW Plt Count Seg Neuts % (Manual) Lymphocytes % (Manual) Nucleated RBC % Seg Neutrophils # Man Lymphocytes # (Manual) PT ABG pH POC ABG pO2 ABG pO2 ABG O2 Saturation ABG Base Excess ABG Hemoglobin ABG Oxyhemoglobin ABG Potassium ABG Chloride ABG Glucose Oxyhemoglobin Sodium Potassium Chloride Carbon Dioxide BUN Creatinine Glucose POC Glucose 107 H 131 H 147 H Hemoglobin A1c Lactic Acid Calcium Phosphorus Magnesium Transferrin AST ALT Alkaline Phosphatase Total Creatine Kinase CK-MB (CK-2) Serum Total Protein Total Protein Albumin Ozjyo-8-Uulxersxx Hdnfa-4-Psrjbnklq Gamma Globulins PEP Interpretation TSH Arterial Blood Glucose Arterial Blood Ionized Calcium Urine Creatinine Urine Total Protein 04/22/21 04/22/21 04/22/21 14:16 15:22 15:55 WBC RBC Hgb Hct MCH RDW Plt Count Seg Neuts % (Manual) Lymphocytes % (Manual) Nucleated RBC % Seg Neutrophils # Man Lymphocytes # (Manual) PT ABG pH POC ABG pO2 ABG pO2 ABG O2 Saturation ABG Base Excess ABG Hemoglobin ABG Oxyhemoglobin ABG Potassium ABG Chloride ABG Glucose Oxyhemoglobin Sodium 169 H* Potassium Chloride 133.5 H Carbon Dioxide 19 L BUN 94 H Creatinine 3.8 H Glucose 150 H POC Glucose 154 H 136 H Hemoglobin A1c Lactic Acid Calcium Phosphorus Magnesium Transferrin AST ALT Alkaline Phosphatase Total Creatine Kinase CK-MB (CK-2) Serum Total Protein Total Protein Albumin Cilbf-9-Tpvxdxeoo Hjwsd-6-Qxrpvchxd Gamma Globulins PEP Interpretation TSH Arterial Blood Glucose Arterial Blood Ionized Calcium Urine Creatinine Urine Total Protein 12/31/21 12/31/21 12/31/21 15:55 16:22 18:11 WBC RBC Hgb Hct MCH RDW Plt Count Seg Neuts % (Manual) Lymphocytes % (Manual) Nucleated RBC % Seg Neutrophils # Man Lymphocytes # (Manual) PT ABG pH POC ABG pO2 ABG pO2 ABG O2 Saturation ABG Base Excess ABG Hemoglobin ABG Oxyhemoglobin ABG Potassium ABG Chloride ABG Glucose Oxyhemoglobin Sodium Potassium Chloride Carbon Dioxide BUN Creatinine Glucose POC Glucose 140 H Hemoglobin A1c 17.1 H Lactic Acid Calcium Phosphorus Magnesium Transferrin AST ALT Alkaline Phosphatase Total Creatine Kinase 2497 H CK-MB (CK-2) Serum Total Protein Total Protein Albumin Weioh-6-Yrwhneaup Nxlgq-3-Yonnqiwol Gamma Globulins PEP Interpretation TSH Arterial Blood Glucose Arterial Blood Ionized Calcium Urine Creatinine Urine Total Protein 04/22/21 04/22/21 04/23/21 18:26 23:19 00:27 WBC RBC Hgb Hct MCH RDW Plt Count Seg Neuts % (Manual) Lymphocytes % (Manual) Nucleated RBC % Seg Neutrophils # Man Lymphocytes # (Manual) PT ABG pH POC ABG pO2 ABG pO2 ABG O2 Saturation ABG Base Excess ABG Hemoglobin ABG Oxyhemoglobin ABG Potassium ABG Chloride ABG Glucose Oxyhemoglobin Sodium 162 H* Potassium Chloride Carbon Dioxide BUN Creatinine Glucose POC Glucose 146 H 188 H Hemoglobin A1c Lactic Acid Calcium Phosphorus Magnesium Transferrin AST ALT Alkaline Phosphatase Total Creatine Kinase CK-MB (CK-2) Serum Total Protein Total Protein Albumin Thzyi-6-Vypsgzxcc Cnqod-4-Kypxvkscc Gamma Globulins PEP Interpretation TSH Arterial Blood Glucose Arterial Blood Ionized Calcium Urine Creatinine Urine Total Protein 04/23/21 04/23/21 04/23/21 05:23 07:50 08:13 WBC RBC Hgb Hct MCH RDW Plt Count Seg Neuts % (Manual) Lymphocytes % (Manual) Nucleated RBC % Seg Neutrophils # Man Lymphocytes # (Manual) PT ABG pH POC ABG pO2 ABG pO2 ABG O2 Saturation ABG Base Excess ABG Hemoglobin ABG Oxyhemoglobin ABG Potassium ABG Chloride ABG Glucose Oxyhemoglobin Sodium Potassium Chloride Carbon Dioxide BUN Creatinine Glucose POC Glucose 212 H 239 H Hemoglobin A1c Lactic Acid Calcium Phosphorus Magnesium Transferrin AST ALT Alkaline Phosphatase Total Creatine Kinase 1803 H CK-MB (CK-2) Serum Total Protein Total Protein Albumin Dacad-4-Qdbetrhvb Cctvh-3-Cgrdazsjq Gamma Globulins PEP Interpretation TSH Arterial Blood Glucose Arterial Blood Ionized Calcium Urine Creatinine Urine Total Protein 04/23/21 04/23/21 04/23/21 08:13 08:13 12:06 WBC 11.9 H RBC Hgb Hct MCH 26 L RDW 16.5 H Plt Count 72 L Seg Neuts % (Manual) 80.0 H Lymphocytes % (Manual) 5.0 L Nucleated RBC % Seg Neutrophils # Man 9.5 H Lymphocytes # (Manual) 0.6 L PT ABG pH POC ABG pO2 ABG pO2 ABG O2 Saturation ABG Base Excess ABG Hemoglobin ABG Oxyhemoglobin ABG Potassium ABG Chloride ABG Glucose Oxyhemoglobin Sodium 164 H* Potassium Chloride 128.0 H Carbon Dioxide 21 L BUN 93 H Creatinine 3.8 H Glucose 293 H POC Glucose 311 H Hemoglobin A1c Lactic Acid Calcium Phosphorus Magnesium Transferrin AST 99 H ALT 70 H Alkaline Phosphatase 147 H Total Creatine Kinase CK-MB (CK-2) Serum Total Protein Total Protein 6.1 L Albumin 2.0 L Umqma-7-Siqxlzwnn Crqgc-3-Jjgclurlq Gamma Globulins PEP Interpretation TSH Arterial Blood Glucose Arterial Blood Ionized Calcium Urine Creatinine Urine Total Protein 04/23/21 04/23/21 04/24/21 17:35 18:17 02:13 WBC RBC Hgb Hct MCH RDW Plt Count Seg Neuts % (Manual) Lymphocytes % (Manual) Nucleated RBC % Seg Neutrophils # Man Lymphocytes # (Manual) PT ABG pH POC ABG pO2 ABG pO2 ABG O2 Saturation ABG Base Excess ABG Hemoglobin ABG Oxyhemoglobin ABG Potassium ABG Chloride ABG Glucose Oxyhemoglobin Sodium 160 H 160 H Potassium Chloride Carbon Dioxide BUN Creatinine Glucose POC Glucose 370 H Hemoglobin A1c Lactic Acid Calcium Phosphorus Magnesium Transferrin AST ALT Alkaline Phosphatase Total Creatine Kinase CK-MB (CK-2) Serum Total Protein Total Protein Albumin Juugu-3-Yimigtelt Ifgie-7-Dvncclqdd Gamma Globulins PEP Interpretation TSH Arterial Blood Glucose Arterial Blood Ionized Calcium Urine Creatinine Urine Total Protein 04/24/21 04/24/21 04/24/21 06:00 06:00 07:46 WBC RBC Hgb Hct MCH 27 L RDW 17.0 H Plt Count 58 L Seg Neuts % (Manual) Lymphocytes % (Manual) 2.0 L Nucleated RBC % Seg Neutrophils # Man 8.9 H Lymphocytes # (Manual) 0.2 L PT ABG pH POC ABG pO2 ABG pO2 ABG O2 Saturation ABG Base Excess ABG Hemoglobin ABG Oxyhemoglobin ABG Potassium ABG Chloride ABG Glucose Oxyhemoglobin Sodium Potassium Chloride Carbon Dioxide BUN Creatinine Glucose POC Glucose 395 H Hemoglobin A1c Lactic Acid Calcium Phosphorus Magnesium 2.90 H Transferrin AST ALT Alkaline Phosphatase Total Creatine Kinase CK-MB (CK-2) Serum Total Protein Total Protein Albumin Zuans-2-Mcviroxha Ydccc-3-Encmvqhvb Gamma Globulins PEP Interpretation TSH Arterial Blood Glucose Arterial Blood Ionized Calcium Urine Creatinine Urine Total Protein 04/24/21 04/24/21 04/24/21 08:15 11:34 13:11 WBC RBC Hgb Hct MCH RDW Plt Count Seg Neuts % (Manual) Lymphocytes % (Manual) Nucleated RBC % Seg Neutrophils # Man Lymphocytes # (Manual) PT ABG pH POC ABG pO2 ABG pO2 ABG O2 Saturation ABG Base Excess ABG Hemoglobin ABG Oxyhemoglobin ABG Potassium ABG Chloride ABG Glucose Oxyhemoglobin Sodium 159 H Potassium Chloride 125.6 H Carbon Dioxide 19 L BUN 94 H Creatinine 3.7 H Glucose 514 H* POC Glucose 422 H 384 H Hemoglobin A1c Lactic Acid Calcium Phosphorus Magnesium Transferrin AST ALT 61 H Alkaline Phosphatase 155 H Total Creatine Kinase CK-MB (CK-2) Serum Total Protein Total Protein 6.1 L Albumin 1.5 L Xhncv-8-Glmmnikkv Kflcm-8-Blwrlkeya Gamma Globulins PEP Interpretation TSH Arterial Blood Glucose Arterial Blood Ionized Calcium Urine Creatinine Urine Total Protein 04/24/21 04/24/21 04/24/21 14:01 15:03 17:29 WBC RBC Hgb Hct MCH RDW Plt Count Seg Neuts % (Manual) Lymphocytes % (Manual) Nucleated RBC % Seg Neutrophils # Man Lymphocytes # (Manual) PT ABG pH POC ABG pO2 ABG pO2 ABG O2 Saturation ABG Base Excess ABG Hemoglobin ABG Oxyhemoglobin ABG Potassium ABG Chloride ABG Glucose Oxyhemoglobin Sodium Potassium Chloride Carbon Dioxide BUN Creatinine Glucose POC Glucose 423 H 418 H Hemoglobin A1c Lactic Acid Calcium Phosphorus Magnesium Transferrin 112 L AST ALT Alkaline Phosphatase Total Creatine Kinase CK-MB (CK-2) Serum Total Protein Total Protein Albumin Mmsvp-5-Gbdhpxefv Tlvlo-5-Orhxccrur Gamma Globulins PEP Interpretation TSH Arterial Blood Glucose Arterial Blood Ionized Calcium Urine Creatinine Urine Total Protein 04/24/21 04/24/21 04/24/21 18:28 19:41 22:33 WBC RBC Hgb Hct MCH RDW Plt Count Seg Neuts % (Manual) Lymphocytes % (Manual) Nucleated RBC % Seg Neutrophils # Man Lymphocytes # (Manual) PT ABG pH POC ABG pO2 ABG pO2 ABG O2 Saturation ABG Base Excess ABG Hemoglobin ABG Oxyhemoglobin ABG Potassium ABG Chloride ABG Glucose Oxyhemoglobin Sodium Potassium Chloride Carbon Dioxide BUN Creatinine Glucose POC Glucose 335 H 321 H 349 H Hemoglobin A1c Lactic Acid Calcium Phosphorus Magnesium Transferrin AST ALT Alkaline Phosphatase Total Creatine Kinase CK-MB (CK-2) Serum Total Protein Total Protein Albumin Qgqhh-3-Ykvxbooiu Mnwkk-4-Ybgzwfvgf Gamma Globulins PEP Interpretation TSH Arterial Blood Glucose Arterial Blood Ionized Calcium Urine Creatinine Urine Total Protein 04/25/21 04/25/21 04/25/21 01:28 02:28 03:25 WBC RBC Hgb Hct MCH RDW Plt Count Seg Neuts % (Manual) Lymphocytes % (Manual) Nucleated RBC % Seg Neutrophils # Man Lymphocytes # (Manual) PT ABG pH POC ABG pO2 ABG pO2 ABG O2 Saturation ABG Base Excess ABG Hemoglobin ABG Oxyhemoglobin ABG Potassium ABG Chloride ABG Glucose Oxyhemoglobin Sodium Potassium Chloride Carbon Dioxide BUN Creatinine Glucose POC Glucose 283 H 247 H 196 H Hemoglobin A1c Lactic Acid Calcium Phosphorus Magnesium Transferrin AST ALT Alkaline Phosphatase Total Creatine Kinase CK-MB (CK-2) Serum Total Protein Total Protein Albumin Opbie-9-Paxvtmlls Meumn-1-Cghzvuoqw Gamma Globulins PEP Interpretation TSH Arterial Blood Glucose Arterial Blood Ionized Calcium Urine Creatinine Urine Total Protein 04/25/21 04/25/21 04/25/21 04:22 05:40 05:45 WBC RBC Hgb Hct MCH 27 L RDW 17.0 H Plt Count 64 L Seg Neuts % (Manual) 84.0 H Lymphocytes % (Manual) 6.0 L Nucleated RBC % 1.0 H Seg Neutrophils # Man Lymphocytes # (Manual) 0.4 L PT ABG pH POC ABG pO2 ABG pO2 ABG O2 Saturation ABG Base Excess ABG Hemoglobin ABG Oxyhemoglobin ABG Potassium ABG Chloride ABG Glucose Oxyhemoglobin Sodium Potassium Chloride Carbon Dioxide BUN Creatinine Glucose POC Glucose 207 H 204 H Hemoglobin A1c Lactic Acid Calcium Phosphorus Magnesium Transferrin AST ALT Alkaline Phosphatase Total Creatine Kinase CK-MB (CK-2) Serum Total Protein Total Protein Albumin Vglss-4-Bmoizjska Zxopo-9-Trxfgcsed Gamma Globulins PEP Interpretation TSH Arterial Blood Glucose Arterial Blood Ionized Calcium Urine Creatinine Urine Total Protein 04/25/21 04/25/21 04/25/21 06:43 07:37 08:11 WBC RBC Hgb Hct MCH RDW Plt Count Seg Neuts % (Manual) Lymphocytes % (Manual) Nucleated RBC % Seg Neutrophils # Man Lymphocytes # (Manual) PT ABG pH POC ABG pO2 ABG pO2 ABG O2 Saturation ABG Base Excess ABG Hemoglobin ABG Oxyhemoglobin ABG Potassium ABG Chloride ABG Glucose Oxyhemoglobin Sodium 148 H D Potassium Chloride 115.7 H Carbon Dioxide 21 L BUN 83 H Creatinine 3.6 H Glucose 247 H POC Glucose 238 H 201 H Hemoglobin A1c Lactic Acid Calcium Phosphorus Magnesium Transferrin AST 63 H ALT 62 H Alkaline Phosphatase 143 H Total Creatine Kinase CK-MB (CK-2) Serum Total Protein Total Protein 5.4 L Albumin 1.4 L Sesmb-8-Mzmwyjcfy Ywnyz-1-Oztitkouh Gamma Globulins PEP Interpretation TSH Arterial Blood Glucose Arterial Blood Ionized Calcium Urine Creatinine Urine Total Protein 04/25/21 04/25/21 04/25/21 08:11 08:41 09:22 WBC RBC Hgb Hct MCH RDW Plt Count Seg Neuts % (Manual) Lymphocytes % (Manual) Nucleated RBC % Seg Neutrophils # Man Lymphocytes # (Manual) PT ABG pH POC ABG pO2 ABG pO2 ABG O2 Saturation ABG Base Excess ABG Hemoglobin ABG Oxyhemoglobin ABG Potassium ABG Chloride ABG Glucose Oxyhemoglobin Sodium Potassium Chloride Carbon Dioxide BUN Creatinine Glucose POC Glucose 220 H 228 H Hemoglobin A1c Lactic Acid Calcium Phosphorus Magnesium 2.50 H Transferrin AST ALT Alkaline Phosphatase Total Creatine Kinase CK-MB (CK-2) Serum Total Protein Total Protein Albumin Yjxya-2-Clkpuucid Atcns-3-Vryqxljuq Gamma Globulins PEP Interpretation TSH Arterial Blood Glucose Arterial Blood Ionized Calcium Urine Creatinine Urine Total Protein 04/25/21 04/25/21 04/25/21 10:31 11:44 12:23 WBC RBC Hgb Hct MCH RDW Plt Count Seg Neuts % (Manual) Lymphocytes % (Manual) Nucleated RBC % Seg Neutrophils # Man Lymphocytes # (Manual) PT ABG pH POC ABG pO2 ABG pO2 ABG O2 Saturation ABG Base Excess ABG Hemoglobin ABG Oxyhemoglobin ABG Potassium ABG Chloride ABG Glucose Oxyhemoglobin Sodium Potassium Chloride Carbon Dioxide BUN Creatinine Glucose POC Glucose 215 H 191 H 229 H Hemoglobin A1c Lactic Acid Calcium Phosphorus Magnesium Transferrin AST ALT Alkaline Phosphatase Total Creatine Kinase CK-MB (CK-2) Serum Total Protein Total Protein Albumin Eabfl-6-Veciaebaa Kjevt-3-Lilnjelwm Gamma Globulins PEP Interpretation TSH Arterial Blood Glucose Arterial Blood Ionized Calcium Urine Creatinine Urine Total Protein 04/25/21 04/25/21 04/25/21 13:48 14:11 18:01 WBC RBC Hgb Hct MCH RDW Plt Count Seg Neuts % (Manual) Lymphocytes % (Manual) Nucleated RBC % Seg Neutrophils # Man Lymphocytes # (Manual) PT ABG pH POC ABG pO2 ABG pO2 ABG O2 Saturation ABG Base Excess ABG Hemoglobin ABG Oxyhemoglobin ABG Potassium ABG Chloride ABG Glucose Oxyhemoglobin Sodium Potassium Chloride Carbon Dioxide BUN Creatinine Glucose POC Glucose 177 H 161 H 264 H Hemoglobin A1c Lactic Acid Calcium Phosphorus Magnesium Transferrin AST ALT Alkaline Phosphatase Total Creatine Kinase CK-MB (CK-2) Serum Total Protein Total Protein Albumin Molrf-1-Wzywhfxmw Dtgwf-4-Fksrqoyqe Gamma Globulins PEP Interpretation TSH Arterial Blood Glucose Arterial Blood Ionized Calcium Urine Creatinine Urine Total Protein 04/25/21 04/26/21 04/26/21 21:31 01:19 06:31 WBC RBC Hgb Hct MCH RDW Plt Count Seg Neuts % (Manual) Lymphocytes % (Manual) Nucleated RBC % Seg Neutrophils # Man Lymphocytes # (Manual) PT ABG pH POC ABG pO2 ABG pO2 ABG O2 Saturation ABG Base Excess ABG Hemoglobin ABG Oxyhemoglobin ABG Potassium ABG Chloride ABG Glucose Oxyhemoglobin Sodium Potassium Chloride Carbon Dioxide BUN Creatinine Glucose POC Glucose 371 H 356 H 428 H Hemoglobin A1c Lactic Acid Calcium Phosphorus Magnesium Transferrin AST ALT Alkaline Phosphatase Total Creatine Kinase CK-MB (CK-2) Serum Total Protein Total Protein Albumin Clajw-5-Onpoflppd Fqohz-6-Sahzivoqj Gamma Globulins PEP Interpretation TSH Arterial Blood Glucose Arterial Blood Ionized Calcium Urine Creatinine Urine Total Protein 04/26/21 04/26/21 04/26/21 09:13 09:33 09:33 WBC RBC Hgb Hct MCH 27 L RDW 16.9 H Plt Count 58 L Seg Neuts % (Manual) 77.0 H Lymphocytes % (Manual) 4.0 L Nucleated RBC % 2.0 H Seg Neutrophils # Man Lymphocytes # (Manual) 0.3 L PT ABG pH POC ABG pO2 ABG pO2 ABG O2 Saturation ABG Base Excess ABG Hemoglobin ABG Oxyhemoglobin ABG Potassium ABG Chloride ABG Glucose Oxyhemoglobin Sodium Potassium Chloride Carbon Dioxide BUN Creatinine Glucose POC Glucose 454 H Hemoglobin A1c Lactic Acid Calcium Phosphorus 5.60 H D Magnesium Transferrin AST ALT Alkaline Phosphatase Total Creatine Kinase CK-MB (CK-2) Serum Total Protein Total Protein Albumin Vnjpd-5-Birohnnum Vubzz-4-Hqlzepnjy Gamma Globulins PEP Interpretation TSH Arterial Blood Glucose Arterial Blood Ionized Calcium Urine Creatinine Urine Total Protein 04/26/21 04/26/21 04/26/21 09:33 11:00 12:36 WBC RBC Hgb Hct MCH RDW Plt Count Seg Neuts % (Manual) Lymphocytes % (Manual) Nucleated RBC % Seg Neutrophils # Man Lymphocytes # (Manual) PT ABG pH 7.281 L POC ABG pO2 66.4 L ABG pO2 ABG O2 Saturation ABG Base Excess ABG Hemoglobin 10.9 L ABG Oxyhemoglobin 91 L ABG Potassium ABG Chloride ABG Glucose 521 H Oxyhemoglobin Sodium Potassium Chloride Carbon Dioxide 19 L BUN 98 H Creatinine 3.8 H Glucose 530 H* POC Glucose 414 H Hemoglobin A1c Lactic Acid Calcium 8.1 L Phosphorus Magnesium Transferrin AST 60 H ALT 72 H Alkaline Phosphatase 168 H Total Creatine Kinase CK-MB (CK-2) Serum Total Protein Total Protein 4.6 L Albumin 1.7 L Doewj-1-Dlnecawhl Qytve-3-Zgipqeyaw Gamma Globulins PEP Interpretation TSH Arterial Blood Glucose 521 H Arterial Blood Ionized Calcium Urine Creatinine Urine Total Protein 04/26/21 04/26/21 04/26/21 15:39 16:18 21:14 WBC RBC Hgb Hct MCH RDW Plt Count Seg Neuts % (Manual) Lymphocytes % (Manual) Nucleated RBC % Seg Neutrophils # Man Lymphocytes # (Manual) PT ABG pH 7.275 L POC ABG pO2 63.4 L ABG pO2 ABG O2 Saturation ABG Base Excess ABG Hemoglobin 8.4 L ABG Oxyhemoglobin 89.5 L ABG Potassium ABG Chloride 108.0 H ABG Glucose 404 H Oxyhemoglobin Sodium Potassium Chloride Carbon Dioxide BUN Creatinine Glucose POC Glucose 324 H 242 H Hemoglobin A1c Lactic Acid Calcium Phosphorus Magnesium Transferrin AST ALT Alkaline Phosphatase Total Creatine Kinase CK-MB (CK-2) Serum Total Protein Total Protein Albumin Dousz-6-Ahktxgazp Wqeyj-3-Blnqsagyv Gamma Globulins PEP Interpretation TSH Arterial Blood Glucose 404 H Arterial Blood Ionized Calcium Urine Creatinine Urine Total Protein 04/27/21 04/27/21 04/27/21 00:07 05:47 06:23 WBC RBC Hgb Hct MCH RDW Plt Count Seg Neuts % (Manual) Lymphocytes % (Manual) Nucleated RBC % Seg Neutrophils # Man Lymphocytes # (Manual) PT ABG pH POC ABG pO2 ABG pO2 ABG O2 Saturation ABG Base Excess ABG Hemoglobin ABG Oxyhemoglobin ABG Potassium ABG Chloride ABG Glucose Oxyhemoglobin Sodium Potassium Chloride Carbon Dioxide BUN Creatinine Glucose POC Glucose 282 H 214 H 187 H Hemoglobin A1c Lactic Acid Calcium Phosphorus Magnesium Transferrin AST ALT Alkaline Phosphatase Total Creatine Kinase CK-MB (CK-2) Serum Total Protein Total Protein Albumin Sabua-0-Zdrdxifjj Ahrwc-3-Egijqedzy Gamma Globulins PEP Interpretation TSH Arterial Blood Glucose Arterial Blood Ionized Calcium Urine Creatinine Urine Total Protein 04/27/21 04/27/21 04/27/21 07:43 08:30 11:54 WBC RBC Hgb Hct MCH RDW Plt Count Seg Neuts % (Manual) Lymphocytes % (Manual) Nucleated RBC % Seg Neutrophils # Man Lymphocytes # (Manual) PT ABG pH 7.309 L POC ABG pO2 70.6 L ABG pO2 ABG O2 Saturation ABG Base Excess ABG Hemoglobin 9.16 L ABG Oxyhemoglobin 92.4 L ABG Potassium ABG Chloride ABG Glucose Oxyhemoglobin Sodium Potassium Chloride 110.1 H Carbon Dioxide 15 L BUN 109 H Creatinine 4.3 H Glucose 218 H POC Glucose 147 H Hemoglobin A1c Lactic Acid Calcium Phosphorus Magnesium Transferrin AST 53 H ALT Alkaline Phosphatase 148 H Total Creatine Kinase 1000 H CK-MB (CK-2) Serum Total Protein Total Protein 5.2 L Albumin 1.2 L Xropq-6-Lfrlefwxp Xnpox-7-Sqtlbciuh Gamma Globulins PEP Interpretation TSH Arterial Blood Glucose Arterial Blood Ionized Calcium Urine Creatinine Urine Total Protein 04/27/21 04/27/21 04/28/21 21:08 23:28 04:00 WBC 12.6 H RBC 3.59 L Hgb 9.4 L Hct MCH 26 L RDW 16.6 H Plt Count 111 L Seg Neuts % (Manual) Lymphocytes % (Manual) 1.0 L Nucleated RBC % 4.0 H Seg Neutrophils # Man 11.6 H Lymphocytes # (Manual) 0.1 L PT ABG pH POC ABG pO2 ABG pO2 ABG O2 Saturation ABG Base Excess ABG Hemoglobin ABG Oxyhemoglobin ABG Potassium ABG Chloride ABG Glucose Oxyhemoglobin Sodium Potassium Chloride Carbon Dioxide BUN Creatinine Glucose POC Glucose 136 H 201 H Hemoglobin A1c Lactic Acid Calcium Phosphorus Magnesium Transferrin AST ALT Alkaline Phosphatase Total Creatine Kinase CK-MB (CK-2) Serum Total Protein Total Protein Albumin Kpnnz-3-Owmcopgrn Awmmj-7-Rzgiuomnh Gamma Globulins PEP Interpretation TSH Arterial Blood Glucose Arterial Blood Ionized Calcium Urine Creatinine Urine Total Protein 04/28/21 04/28/21 04/28/21 04:00 05:00 05:08 WBC RBC Hgb Hct MCH RDW Plt Count Seg Neuts % (Manual) Lymphocytes % (Manual) Nucleated RBC % Seg Neutrophils # Man Lymphocytes # (Manual) PT 15.3 H ABG pH POC ABG pO2 ABG pO2 ABG O2 Saturation ABG Base Excess ABG Hemoglobin ABG Oxyhemoglobin ABG Potassium ABG Chloride ABG Glucose Oxyhemoglobin Sodium 147 H Potassium 3.5 L D Chloride Carbon Dioxide BUN 79 H Creatinine 3.8 H Glucose 194 H POC Glucose 183 H Hemoglobin A1c Lactic Acid Calcium 8.1 L Phosphorus Magnesium Transferrin AST ALT Alkaline Phosphatase Total Creatine Kinase CK-MB (CK-2) Serum Total Protein Total Protein Albumin Lfrzs-2-Gkvzyvite Upkpv-9-Eqwhxuvov Gamma Globulins PEP Interpretation TSH Arterial Blood Glucose Arterial Blood Ionized Calcium Urine Creatinine Urine Total Protein 04/28/21 05:18 WBC RBC Hgb Hct MCH RDW Plt Count Seg Neuts % (Manual) Lymphocytes % (Manual) Nucleated RBC % Seg Neutrophils # Man Lymphocytes # (Manual) PT ABG pH POC ABG pO2 66.5 L ABG pO2 ABG O2 Saturation ABG Base Excess ABG Hemoglobin 9.7 L ABG Oxyhemoglobin 92.5 L ABG Potassium 3.2 L ABG Chloride ABG Glucose 200 H Oxyhemoglobin Sodium Potassium Chloride Carbon Dioxide BUN Creatinine Glucose POC Glucose Hemoglobin A1c Lactic Acid Calcium Phosphorus Magnesium Transferrin AST ALT Alkaline Phosphatase Total Creatine Kinase CK-MB (CK-2) Serum Total Protein Total Protein Albumin Lmydn-3-Acdgyxxcx Qodkr-6-Vzjtkgznt Gamma Globulins PEP Interpretation TSH Arterial Blood Glucose 200 H Arterial Blood Ionized Calcium 4.5 L Urine Creatinine Urine Total Protein
--- NOTE | 2021-04-28 15:36 | Progress Note ---
<LISA CLIFTON - Last Filed: 04/28/21 15:47> Assessment and Plan Assessment and plan: This is a 80-year-old female, half-way resident with past medical history of GERD, hypothyroidism, hyperlipidemia, schizophrenia and dementia admitted with hypothermia, hyponatremia, hypokalemia, lactic acidosis, acute kidney injury, rhabdomyolysis and hyperosmolar nonketotic state. Hospital Course to Date: This is a 80-year-old female who was half-way resident at [facility] with GERD, hypothyroidism, hyperlipidemia, schizophrenia and dementia presented to the emergency department on 04/20 after being found unresponsive by the staff via EMS. Per EMS glucose levels read as high. Work-up in the emergency department revealed severe hypernatremia, leukocytosis, metabolic acidosis, hyperchloremia, elevated BUN/creatinine, lactic acidosis and hyperglycemia. Patient was also hypothermic on admit. CT head showed findings suggestive of the possibility of normal pressure hydrocephalus. Patient was admitted to the hospitalist service with acute metabolic encephalopathy, diabetic hyperosmolar nonketotic state, acute kidney injury, hypernatremia, rhabdomyolysis and leukocytosis with consults to nephrology and CCM. 04/21: Given 1 L LR bolus per nephrology and D5W increased to 125 mL's per hour, COVID-19 PCR pending, CXR and ABG ordered as patient was weaned from BiPAP to 3 L nasal cannula however was uptitrated back to nonrebreather. Will obtain blood cultures x2 given her leukocytosis and hypothermia. Replace potassium. Neurosurgery and neurology consulted and Luther catheter placed. 04/22: Improvement to sodium noted, slight hypokalemia which will be repleted, slight improvement to renal function, LFTs and rhabdomyolysis. Seen by neurosurgery today. Patient still making urine. transition to ssi and start TF as AG 15 04/23/2021: Given racemic epinephrine again due to stridor, continue IV fluids per nephrology, continue to trend sodium and BMP. 04/24/2021: /30 increased d/t hyperglycemia but recent BMP showed BG>300, gave additional 5 units IV insulin and ordered 5 units TID scheduled. However after IV insulin her PCOT was 400. Start on insulin gtt for hyperglycemia. Per RN she was not of IV D5 overniught d/t having one IV which was needed for emergency. Day RN did start dextrose. Remains with hyperglycemia. 04/25: Patient obtunded, withdrawal to pain only, on 50%Venti mask SPO2 abobe 92%. Plan to transition to SubQ insulin. Patient with mild hypernatremia this am, FWF added, will stop IVF for now. 04/26: Patient s/p intubation this am. Mentation is unchanged, plan for MRI brain today per NeuroSurg. Still hyperglycemic, hypernatremia improved, D5W D/katlyn, and basal insulin adjusted. 04/27: Bronch overnight. CXR with mild improvement. D/w Nephro plan for HD today, RIJ VasCath inserted. MRI on hold per [facility] patient is too unstable at this time, plan for possible spinal drained tomorrow to see if mentation will improve. 04/28: Tolerated HD overnight, only UF. Mentation remains the same. D/w [facility] plan for possible large volume spinal tap under fluoroscopy today. Plan for possible HD again today. Continue FWF for elevated Na. Assessment and Plan #Neuro: Acute metabolic encephalopathy #Normal Pressure Hydrocephalus -CT head shows lateral ventricles and third ventricle dilation, raises possibility of normal pressure hydrocephalus -Neurology and neurosurgery consulted, appreciate recommendations -neurosurgery no acute interventions -MRI brain on hold patient too unstable -plan for possible large volume spinal tap under fluoroscopy today -Maintain sleep-wake cycle -Avoid delirium -Correct electrolyte derangements -Hold off on restarting home antipsychotic medications when obtained #Hypotension -Low BP, multifactorial-hypovelemia vs infectious process -now on levophed gtt -Continue blood pressure monitor per protocol -Maintain MAP above 65 #Respiratory: Acute hypoxic respiratory failure #CAP #Possible Aspiration -Patient decompensated overnight SPO2 dropped in the low 70s -S/p intubation this am 04/26 -Vent setting:PRVC-80%,8,14,450 -04/26 s/p bronchoscopy, this am CXR with mild improvement -This am ABG noted -[facility] consulted, appreciate recommendations -VAP bundle addressed -Aspiration precaution HOB above 30 -Daily SBT and SAT trials as tolerated -Daily ABG and CXR -Continue SPO2 monitoring for SPO2 goal above 92% #GI:Transaminitis #Hypoalbuminemia -Presented with transaminitis -Okay to resume TF -Trend LFTs -Ntr consult for TF -BR: Senokot -PPI #:Acute Kidney Injury (SYED) likely secondary to vasomotor nephropathy #Hypernatremia #Hypokalemia #Urinary Retention-resolved -FeNA 0.50 indicating prerenal sate -Nephrology and CCM consulted, appreciate recommendations -04/27 vascath inserted and HD initiated, patient tolerated it well -Plan for HD again today -Luther catheter placed for strict intake and output -Avoid nephrotoxic medication -Continue FWF -Trend BMP -Will D/C D5w due to persistent hyperglycemia -Renally dose medications -Trend BMP #ID:CAP #Leukocytrosis -Patient presented hypothemic -CXR shows increased interstitial prominence of densities in bilateral lungs -COVID-19 PCR negative -Blood culture x2 NGTD -Antibiotic therapy course ended today 04/25 -Patient remains afebrile, slight rise in WBCs this am -Will continue to monitor, no ABX at this time -Monitor WBC and fever curve -Continue to F/U on B.cult -Daily CBC monitor -Consider ID consult if febrile or/and if leukocytosis reoccur #Endo:Hyperglycemia #s/p HHNK -Transition to SubQ insulin -Continue high dose SSI Q6hrs -Continue Basal, NPH -Avoid hypoglycemia #Heme:Thrombocytopenia -Plt remains low -AC still on hold -Trend CBC -Transfuse to hemoglobin less than 7 -Monitor for bleeding -r/o DVT, BUE dopplar neg -SCD to bilateral lower extremities while in bed The high probability of a clinically significant, sudden or life threatening deterioration of the [Neuro, Respiratory,Renal] system(s) required my full and direct attention, intervention and personal management. The aggregate critical care time was [60] minutes. This time is in addition to time spent performing reported procedures but includes the following: [x] Data Review and interpretation [x] Patient assessment and monitoring of vital signs [x] Documentation [x] Medication orders and management Disposition Plan: ICU Total Time Spent with Patient (Minutes): 60 History Interval history: Patient seen and examined at the bedside. Intubated, not on any sedation. Remains unresponsive, only withdrawal from pain. Still on low dose levophed gtt for hypotension. HD overnight, only UF per RN, plan for possible HD again today Hospitalist Physical - Constitutional Vitals: Temp Pulse Resp BP Pulse Ox 99.7 F H 85 18 103/55 100 04/28/21 11:19 04/28/21 14:45 04/28/21 14:45 04/28/21 14:45 04/28/21 14:45 General appearance: Present: no acute distress, other (Intubated and unresponsive) - EENT Eyes: Present: PERRL - Respiratory Respiratory effort: normal Respiratory: bilateral: rhonchi - Cardiovascular Rhythm: regular Heart Sounds: Present: S1 & S2 - Extremities Extremities: no ischemia, pulses intact, pulses symmetrical Extremity abnormal: edema - Peripheral Assessment Generalized Edema Type: Pitting Edema Degree: 2+ Capillary Refill: < 3 seconds Skin Temperature: Warm Peripheral Pulses: within normal limits - Abdominal General gastrointestinal: soft, non-tender, normal bowel sounds - Integumentary Integumentary: Present: warm, dry - Psychiatric Psychiatric: other (SONJA) - Neurologic Neurologic: other (SONJA) - Allied Health Allied health notes reviewed: nursing HEART Score - HEART Score Troponin: Troponin T 0.021 ng/mL (0.00-0.029) 04/20/21 17:10 Results - Labs CBC & Chem 7: 04/28/21 04:00 04/28/21 04:00 Labs: Laboratory Last Values WBC 12.6 K/mm3 (4.5-11.0) H 04/28/21 04:00 RBC 3.59 M/mm3 (3.65-5.03) L 04/28/21 04:00 Hgb 9.4 gm/dl (10.1-14.3) L 04/28/21 04:00 Hct 30.4 % (30.3-42.9) 04/28/21 04:00 MCV 85 fl (79-97) 04/28/21 04:00 MCH 26 pg (28-32) L 04/28/21 04:00 MCHC 31 % (30-34) 04/28/21 04:00 RDW 16.6 % (13.2-15.2) H 04/28/21 04:00 Plt Count 111 K/mm3 (140-440) L 04/28/21 04:00 Add Manual Diff Complete 04/28/21 04:00 Total Counted 100 04/28/21 04:00 Seg Neutrophils % Assistant Professor Of Radiology 04/28/21 04:00 Seg Neuts % (Manual) 77.0 % (40.0-70.0) H 04/26/21 09:33 Band Neutrophils % 2.0 % 04/28/21 04:00 Lymphocytes % (Manual) 1.0 % (13.4-35.0) L 04/28/21 04:00 Reactive Lymphs % (Man) 0 % 04/28/21 04:00 Monocytes % (Manual) 1.0 % (0.0-7.3) 04/28/21 04:00 Eosinophils % (Manual) 3.0 % (0.0-4.3) 04/28/21 04:00 Metamyelocytes % 1.0 % 04/28/21 04:00 Myelocytes % 0 % 04/28/21 04:00 Promyelocytes % 0 % 04/28/21 04:00 Blast Cells % 0 % 04/28/21 04:00 Nucleated RBC % 4.0 % (0.0-0.9) H 04/28/21 04:00 Seg Neutrophils # Man 11.6 K/mm3 (1.8-7.7) H 04/28/21 04:00 Band Neutrophils # 0.3 K/mm3 04/28/21 04:00 Lymphocytes # (Manual) 0.1 K/mm3 (1.2-5.4) L 04/28/21 04:00 Abs React Lymphs (Man) 0.0 K/mm3 04/28/21 04:00 Monocytes # (Manual) 0.1 K/mm3 (0.0-0.8) 04/28/21 04:00 Eosinophils # (Manual) 0.4 K/mm3 (0.0-0.4) 04/28/21 04:00 Basophils # (Manual) 0.0 K/mm3 (0.0-0.1) 04/28/21 04:00 Metamyelocytes # 0.1 K/mm3 04/28/21 04:00 Myelocytes # 0.0 K/mm3 04/28/21 04:00 Promyelocytes # 0.0 K/mm3 04/28/21 04:00 Blast Cells # 0.0 K/mm3 04/28/21 04:00 WBC Morphology Not Reportable 04/28/21 04:00 Hypersegmented Neuts Not Reportable 04/28/21 04:00 Hyposegmented Neuts Not Reportable 04/28/21 04:00 Hypogranular Neuts Not Reportable 04/28/21 04:00 Smudge Cells Not Reportable 04/28/21 04:00 Toxic Granulation Not Reportable 04/28/21 04:00 Toxic Vacuolation Not Reportable 04/28/21 04:00 Dohle Bodies Not Reportable 04/28/21 04:00 Pelger-Huet Anomaly Not Reportable 04/28/21 04:00 Moni Rods Not Reportable 04/28/21 04:00 Platelet Estimate Consistent w auto 04/28/21 04:00 Clumped Platelets Not Reportable 04/28/21 04:00 Plt Clumps, EDTA Not Reportable 04/28/21 04:00 Large Platelets Few 04/28/21 04:00 Giant Platelets Not Reportable 04/28/21 04:00 Platelet Satelliting Not Reportable 04/28/21 04:00 Plt Morphology Comment Not Reportable 04/28/21 04:00 RBC Morphology Not Reportable 04/28/21 04:00 Dimorphic RBCs Not Reportable 04/28/21 04:00 Polychromasia Not Reportable 04/28/21 04:00 Hypochromasia Not Reportable 04/28/21 04:00 Poikilocytosis Not Reportable 04/28/21 04:00 Anisocytosis Not Reportable 04/28/21 04:00 Microcytosis Not Reportable 04/28/21 04:00 Macrocytosis Not Reportable 04/28/21 04:00 Spherocytes Not Reportable 04/28/21 04:00 Pappenheimer Bodies Not Reportable 04/28/21 04:00 Sickle Cells Not Reportable 04/28/21 04:00 Target Cells 1+ 04/28/21 04:00 Tear Drop Cells Not Reportable 04/28/21 04:00 Ovalocytes Not Reportable 04/28/21 04:00 Helmet Cells Not Reportable 04/28/21 04:00 [place] Bodies Not Reportable 04/28/21 04:00 [place] Rings Not Reportable 04/28/21 04:00 [place] Cells Not Reportable 04/28/21 04:00 Bite Cells Not Reportable 04/28/21 04:00 Crenated Cell Not Reportable 04/28/21 04:00 Elliptocytes Not Reportable 04/28/21 04:00 Acanthocytes (Spur) Not Reportable 04/28/21 04:00 Rouleaux Not Reportable 04/28/21 04:00 Hemoglobin C Crystals Not Reportable 04/28/21 04:00 Schistocytes Not Reportable 04/28/21 04:00 Malaria parasites Not Reportable 04/28/21 04:00 Herrera Bodies Not Reportable 04/28/21 04:00 Hem Pathologist Commnt No 04/28/21 04:00 PT 15.3 Sec. (12.2-14.9) H 04/28/21 05:00 INR 1.09 (0.87-1.13) 04/28/21 05:00 APTT 36.6 Sec. (24.2-36.6) 04/28/21 05:00 ABG pH 7.438 (7.320-7.450) 04/28/21 05:18 POC ABG pCO2 37.7 mmHg (32.0-48.0) 04/28/21 05:18 ABG pCO2 31.6 mm Hg 04/21/21 15:47 POC ABG pO2 66.5 mmHg (83-108) L 04/28/21 05:18 ABG pO2 168.1 mm Hg (80.0-90.0) H 04/21/21 15:47 POC ABG HCO3 24.9 04/28/21 05:18 ABG HCO3 23.3 mmol/L (20.0-26.0) 04/21/21 15:47 ABG O2 Saturation 93.1 (0-100) 04/28/21 05:18 ABG O2 Content 12.7 (0.0-44) 04/21/21 15:47 POC ABG Base Excess 0.8 04/28/21 05:18 ABG Base Excess 0.3 mmol/L (-2.0-3.0) 04/21/21 15:47 ABG Hemoglobin 9.7 (12.0-17.5) L 04/28/21 05:18 ABG Oxyhemoglobin 92.5 (94-98) L 04/28/21 05:18 ABG Carboxyhemoglobin 1.0 % (0.0-5.0) 04/21/21 15:47 ABG Methemoglobin 0 (0.0-1.5) 04/28/21 05:18 ABG Sodium 140.4 mmol/L (136.0-145.0) 04/28/21 05:18 ABG Potassium 3.2 mmol/L (3.40-4.50) L 04/28/21 05:18 ABG Chloride 104.0 mmol/L (98-107) 04/28/21 05:18 ABG Glucose 200 mg/dL (65-95) H 04/28/21 05:18 VBG pH 7.397 (7.320-7.420) 04/20/21 17:10 Oxyhemoglobin 97.5 % (95.0-99.0) 04/21/21 15:47 Carboxyhemoglobin 0.6 (0.5-1.5) 04/28/21 05:18 FiO2 100 % 04/21/21 15:47 FiO2 % 90.0 04/28/21 05:18 Sodium 147 mmol/L (137-145) H 04/28/21 04:00 Potassium 3.5 mmol/L (3.6-5.0) L D 04/28/21 04:00 Chloride 105.4 mmol/L (98-107) 04/28/21 04:00 Carbon Dioxide 24 mmol/L (22-30) D 04/28/21 04:00 Anion Gap 21 mmol/L 04/28/21 04:00 BUN 79 mg/dL (7-17) H 04/28/21 04:00 Creatinine 3.8 mg/dL (0.6-1.2) H 04/28/21 04:00 Estimated GFR 14 ml/min 04/28/21 04:00 BUN/Creatinine Ratio 21 % 04/28/21 04:00 Glucose 194 mg/dL (65-100) H 04/28/21 04:00 POC Glucose 174 mg/dL (70-105) H 04/28/21 11:04 Hemoglobin A1c 17.1 % (4-6) H 04/22/21 15:55 Lactic Acid 1.90 mmol/L (0.7-2.0) 04/20/21 19:56 Calcium 8.1 mg/dL (8.4-10.2) L 04/28/21 04:00 Phosphorus 5.60 mg/dL (2.5-4.5) H D 04/26/21 09:33 Magnesium 2.50 mg/dL (1.7-2.3) H 04/25/21 08:11 Iron 62 ug/dL (37-170) 04/24/21 17:29 TIBC 285 mcg/dL (250-450) 04/24/21 17:29 % Saturation 21.75 % 04/24/21 17:29 Transferrin 112 mg/dl (192-382) L 04/24/21 17:29 Total Bilirubin 0.30 mg/dL (0.1-1.2) 04/27/21 07:43 AST 53 units/L (5-40) H 04/27/21 07:43 ALT 53 units/L (7-56) 04/27/21 07:43 Alkaline Phosphatase 148 units/L (35-129) H 04/27/21 07:43 Ammonia 29.0 umol/L (25-60) 04/20/21 17:10 Total Creatine Kinase 1000 units/L (30-135) H 04/27/21 07:43 CK-MB (CK-2) 36.0 ng/mL (0.0-4.0) H 04/20/21 17:10 CK-MB (CK-2) Rel Index 0.9 (0-4) 04/20/21 17:10 Troponin T 0.021 ng/mL (0.00-0.029) 04/20/21 17:10 Serum Total Protein 5.5 g/dL (6.1-8.1) L 04/22/21 08:59 Total Protein 5.2 g/dL (6.3-8.2) L 04/27/21 07:43 Albumin 1.2 g/dL (3.9-5) L 04/27/21 07:43 Albumin/Globulin Ratio 0.3 % 04/27/21 07:43 Qgrmi-8-Kettxklqx 0.6 g/dL (0.2-0.3) H 04/22/21 08:59 Aqabm-0-Xmprqzppm 1.0 g/dL (0.5-0.9) H 04/22/21 08:59 Beta Globulins 0.3 g/dL (0.2-0.5) 04/22/21 08:59 Gamma Globulins 0.6 g/dL (0.8-1.7) L 04/22/21 08:59 Abnorm Protein Band 1 see below 04/22/21 08:59 PEP Interpretation see below H 04/22/21 08:59 TSH 6.040 mlU/mL (0.270-4.200) H 04/20/21 17:10 Free T4 0.93 ng/dL (0.76-1.46) 04/20/21 17:10 Arterial Blood Glucose 200 mg/dL (65-95) H 04/28/21 05:18 Arterial Blood Ionized Calcium 4.5 mg/dL (4.6-5.3) L 04/28/21 05:18 Urine Color Yellow (Yellow) 04/20/21 Unknown Urine Turbidity Slightly-cloudy (Clear) 04/20/21 Unknown Urine pH 5.0 (5.0-7.0) 04/20/21 Unknown Ur Specific [place] 1.016 (1.003-1.030) 04/20/21 Unknown Urine Protein <15 mg/dl mg/dL (Negative) 04/20/21 Unknown Urine Glucose (UA) >=500 mg/dL (Negative) 04/20/21 Unknown Urine Ketones Tr mg/dL (Negative) 04/20/21 Unknown Urine Blood Mod (Negative) 04/20/21 Unknown Urine Nitrite Neg (Negative) 04/20/21 Unknown Urine Bilirubin Neg (Negative) 04/20/21 Unknown Urine Urobilinogen < 2.0 mg/dL (<2.0) 04/20/21 Unknown Ur Leukocyte Esterase Neg (Negative) 04/20/21 Unknown Urine WBC (Auto) 3.0 /HPF (0.0-6.0) 04/20/21 Unknown Urine RBC (Auto) 1.0 /HPF (0.0-6.0) 04/20/21 Unknown Urine Mucus Few /HPF 04/20/21 Unknown Urine Osmolality 446 Mosm/kg 04/21/21 08:01 Urine Creatinine 44.3 mg/dL (0.1-20.0) H 04/21/21 08:01 Urine Sodium 71 mmol/L 04/21/21 08:01 Urine Total Protein 12 mg/dL (5-11.8) H 04/21/21 08:01 Plasma/Serum Alcohol < 0.01 % (0-0.07) 04/20/21 17:10 Coronavirus (PCR) Negative (Negative) 04/21/21 Unknown Hepatitis A IgM Ab Non-reactive (NonReactive) 04/27/21 12:49 Hep Bs Antigen Nonreactive (Negative) 04/27/21 12:49 Hep B Core IgM Ab Non-reactive (NonReactive) 04/27/21 12:49 Hepatitis C Antibody Non-reactive (NonReactive) 04/27/21 12:49 Luther/IV: Voiding Method Indwelling Catheter Active Medications - Current Medications Current Medications: Generic Name Dose Route Start Last Admin Trade Name Freq PRN Reason Stop Dose Admin Acetaminophen 650 mg 04/20/21 21:31 Acetaminophen 325 Mg Tab PO Q4H PRN Pain MILD(1-3)/Fever >100.5/TURCIOS Albuterol 2.5 mg 04/22/21 14:49 04/23/21 15:18 Albuterol 2.5 Mg/3 Ml Nebu IH 2.5 mg Q4HRT PRN Administration Shortness Of Breath Lipase/Protease/Amylase 1 each 04/25/21 14:13 Lipase 10,500/Protease 25,000/Amylase 43,750 (Units) Dr Vasquez FEEDTUBE PRN PRN For Clogged Feeding Tube Dextrose 50 ml 04/24/21 11:36 Dextrose 50% In Water (25gm) 50 Ml Syringe IV Q30MIN PRN Hypoglycemia Protocol Famotidine 10 mg 04/27/21 10:00 04/28/21 09:03 Famotidine 10 Mg Tab FEEDTUBE 10 mg BID AZIZA Administration Hydralazine HCl 10 mg 04/24/21 21:22 Hydralazine 20 Mg/1 Ml Inj IV Q4HR PRN elevated BP Hydrophilic Ointment 1 applic 04/26/21 11:16 Lip Therapy Vaseline TP Q2HR PRN Dry Lips NORepinephrine/NS 8 MG-250 ML 8 mg in 250 mls @ 3.75 mls/hr 04/26/21 16:00 04/28/21 14:20 Norepinephrine/Ns 8 Mg-250 Ml (Double Conc) IV 4 mcg/min TITRATE AZIZA 7.5 mls/hr Titration Protocol 2 MCG/MIN Sodium Chloride 100 mls @ 999 mls/hr 04/27/21 10:43 Nacl 0.9% IV MITCH PRN Hypotension Insulin Human Lispro 0 unit 04/25/21 18:00 04/28/21 12:55 Insulin Lispro 100 Unit/Ml SUB-Q 3 unit Q6HR AZIZA Administration Protocol Insulin Human NPH 30 unit 04/26/21 10:00 04/28/21 09:03 Insulin Nph, Human 100 Unit/1 Ml SUB-Q 30 unit Q12HR AZIZA Administration Lorazepam 1 mg 04/26/21 11:15 Lorazepam 2 Mg/Ml Vial IV Q4H PRN Sedation Metoclopramide HCl 5 mg 04/20/21 21:31 Metoclopramide 10 Mg/2 Ml Inj IV Q6H PRN Nausea And Vomiting Multi-Ingred Cream/Lotion/Oil/Oint 1 applic 04/26/21 11:16 Mineral Oil/Petrolatum, White Ophth Oint 3.5 Gm OU Q4HR PRN Dry Eye(s) Ondansetron HCl 4 mg 04/20/21 21:31 Ondansetron 4 Mg/2 Ml Inj IV Q8H PRN Nausea And Vomiting Senna/Docusate Sodium 1 tab 04/26/21 22:00 04/28/21 09:03 Sennosides/Docusate Sodium 8.6/50 Mg Tab FEEDTUBE 1 tab BID AZIZA Administration Simple Syrup 15 ml 04/25/21 14:13 Simple Syrup 15 Ml FEEDTUBE PRN PRN Hypoglycemia Simple Syrup 30 ml 04/25/21 14:13 Simple Syrup 15 Ml FEEDTUBE PRN PRN Hypoglycemia Sodium Bicarbonate 325 mg 04/25/21 14:13 04/27/21 13:00 Sodium Bicarbonate 325 Mg Tab FEEDTUBE 325 mg PRN PRN Administration For Clogged Feeding Tube Sodium Bicarbonate 1,300 mg 04/27/21 14:00 04/28/21 13:45 Sodium Bicarbonate 650 Mg Tab PO 1,300 mg TID AZIZA Administration Sodium Chloride 10 ml 04/20/21 22:00 04/28/21 09:04 Sodium Chloride 0.9% 10 Ml Flush Syringe IV 10 ml BID AZIZA Administration Sodium Chloride 10 ml 04/20/21 21:31 Sodium Chloride 0.9% 10 Ml Flush Syringe IV PRN PRN LINE FLUSH Nutrition/Malnutrition Assess - Dietary Evaluation Nutrition/Malnutrition Findings: Nutrition Notes Start: 04/21/21 12:15 Freq: Status: Active Protocol: Document 04/27/21 12:21 JOSE (Rec: 04/27/21 13:30 JOSE [email or web address]) Nutrition Notes Need for Assessment generated from: MD Order Initial or Follow up Reassessment Current Diagnosis Acute Kidney Injury, Hyperlipidemia Other Pertinent Diagnosis Acute metabolic encephalopathy , Dehydration, Hyperosmolar non-ketotic state Current Diet TF-Nepro w/CARBSTEADY @ 27 ml/ hr (since D 04/27). Labs/Tests 04/27: Cl 110.1, CO2 15, BUN 109, Crea 4.3, Glu 218, AST 53 , AlkPhos 148, Tpro 5.2, Alb 1 .2. Pertinent Medications 04/27: Insulin, others nutritionally unremarkable. Height 5 ft 2 in Weight 72.4 kg [place] Body Weight (kg) 50.00 BMI 29.2 Weight change and time frame No body weight change reported . Weight Status Overweight Subjective/Other Information RD comsult for routine F/U on TF tolerance and evaluation of nutritional intake. MD requested change TF to Nepro, according to Progress note. Hypernatremia resolved. Percent of energy/protein needs met: Prescribed TF-Nepro w/ CARBSTEADY @ 27 ml/hr provides for energy/protein needs (1, 389 Kcal/63 g) during LOS, 100 % Kcal; 72% AA. Burn Absent Trauma Absent GI Symptoms None Food Allergy No Skin Integrity/Comment Clear, warm, dry. Current % PO Other Minimum of two criteria No #1 Nutrition Diagnosis Inadequate oral intake Diagnosis Progress(for reassessment Continues documentation) Is patient on ventilator? No Is Patient Ambulatory and/or Out of Bed No REE-([facility]-confined to bed) [phone] Calculation Used for Recommendations [facility] Additional Notes Protein: 1.2-2 g/k-145 g/ day Fluids: 1 ml/kcal, or as per MD. Nutrition Intervention Nutrition Support: Change TF to Mepro w/ CARBSTEADY @ 32 ml/hr. Flush: 140 ml water Q 4 hr, or as per MD. Kcal 1,389 Protein (gm) 63 Carbohydrates (gm) 124 Fat (gm) 74 Fluid (mL) 561 Fiber (gm) 10 % RDI: 100% Kcal; 72% AA. Goal #1 Provide at least 75% of energy /protein needs through Enteral Feeding during LOS. Follow-Up By: 04/29/21 Additional Comments Continue monitoring TF tolerance and BM. <RUPAL VIZCAINO - Last Filed: 04/28/21 17:12> Assessment and Plan Assessment and plan: I saw and evaluated the patient. I agree with the findings and the plan of care as documented in the Nurse Practitioner's~note, with the following corrections and additions. Hospitalist Physical - Constitutional Vitals: Temp Pulse Resp BP Pulse Ox 97.8 F 103 H 30 H 126/67 98 04/28/21 16:12 04/28/21 17:00 04/28/21 16:46 04/28/21 17:00 04/28/21 16:46 HEART Score - HEART Score Troponin: Troponin T 0.021 ng/mL (0.00-0.029) 04/20/21 17:10 Results - Labs CBC & Chem 7: 04/28/21 04:00 04/28/21 04:00 Labs: Laboratory Last Values WBC 12.6 K/mm3 (4.5-11.0) H 04/28/21 04:00 RBC 3.59 M/mm3 (3.65-5.03) L 04/28/21 04:00 Hgb 9.4 gm/dl (10.1-14.3) L 04/28/21 04:00 Hct 30.4 % (30.3-42.9) 04/28/21 04:00 MCV 85 fl (79-97) 04/28/21 04:00 MCH 26 pg (28-32) L 04/28/21 04:00 MCHC 31 % (30-34) 04/28/21 04:00 RDW 16.6 % (13.2-15.2) H 04/28/21 04:00 Plt Count 111 K/mm3 (140-440) L 04/28/21 04:00 Add Manual Diff Complete 04/28/21 04:00 Total Counted 100 04/28/21 04:00 Seg Neutrophils % Assistant Professor Of Radiology 04/28/21 04:00 Seg Neuts % (Manual) 77.0 % (40.0-70.0) H 04/26/21 09:33 Band Neutrophils % 2.0 % 04/28/21 04:00 Lymphocytes % (Manual) 1.0 % (13.4-35.0) L 04/28/21 04:00 Reactive Lymphs % (Man) 0 % 04/28/21 04:00 Monocytes % (Manual) 1.0 % (0.0-7.3) 04/28/21 04:00 Eosinophils % (Manual) 3.0 % (0.0-4.3) 04/28/21 04:00 Metamyelocytes % 1.0 % 04/28/21 04:00 Myelocytes % 0 % 04/28/21 04:00 Promyelocytes % 0 % 04/28/21 04:00 Blast Cells % 0 % 04/28/21 04:00 Nucleated RBC % 4.0 % (0.0-0.9) H 04/28/21 04:00 Seg Neutrophils # Man 11.6 K/mm3 (1.8-7.7) H 04/28/21 04:00 Band Neutrophils # 0.3 K/mm3 04/28/21 04:00 Lymphocytes # (Manual) 0.1 K/mm3 (1.2-5.4) L 04/28/21 04:00 Abs React Lymphs (Man) 0.0 K/mm3 04/28/21 04:00 Monocytes # (Manual) 0.1 K/mm3 (0.0-0.8) 04/28/21 04:00 Eosinophils # (Manual) 0.4 K/mm3 (0.0-0.4) 04/28/21 04:00 Basophils # (Manual) 0.0 K/mm3 (0.0-0.1) 04/28/21 04:00 Metamyelocytes # 0.1 K/mm3 04/28/21 04:00 Myelocytes # 0.0 K/mm3 04/28/21 04:00 Promyelocytes # 0.0 K/mm3 04/28/21 04:00 Blast Cells # 0.0 K/mm3 04/28/21 04:00 WBC Morphology Not Reportable 04/28/21 04:00 Hypersegmented Neuts Not Reportable 04/28/21 04:00 Hyposegmented Neuts Not Reportable 04/28/21 04:00 Hypogranular Neuts Not Reportable 04/28/21 04:00 Smudge Cells Not Reportable 04/28/21 04:00 Toxic Granulation Not Reportable 04/28/21 04:00 Toxic Vacuolation Not Reportable 04/28/21 04:00 Dohle Bodies Not Reportable 04/28/21 04:00 Pelger-Huet Anomaly Not Reportable 04/28/21 04:00 Moni Rods Not Reportable 04/28/21 04:00 Platelet Estimate Consistent w auto 04/28/21 04:00 Clumped Platelets Not Reportable 04/28/21 04:00 Plt Clumps, EDTA Not Reportable 04/28/21 04:00 Large Platelets Few 04/28/21 04:00 Giant Platelets Not Reportable 04/28/21 04:00 Platelet Satelliting Not Reportable 04/28/21 04:00 Plt Morphology Comment Not Reportable 04/28/21 04:00 RBC Morphology Not Reportable 04/28/21 04:00 Dimorphic RBCs Not Reportable 04/28/21 04:00 Polychromasia Not Reportable 04/28/21 04:00 Hypochromasia Not Reportable 04/28/21 04:00 Poikilocytosis Not Reportable 04/28/21 04:00 Anisocytosis Not Reportable 04/28/21 04:00 Microcytosis Not Reportable 04/28/21 04:00 Macrocytosis Not Reportable 04/28/21 04:00 Spherocytes Not Reportable 04/28/21 04:00 Pappenheimer Bodies Not Reportable 04/28/21 04:00 Sickle Cells Not Reportable 04/28/21 04:00 Target Cells 1+ 04/28/21 04:00 Tear Drop Cells Not Reportable 04/28/21 04:00 Ovalocytes Not Reportable 04/28/21 04:00 Helmet Cells Not Reportable 04/28/21 04:00 [place] Bodies Not Reportable 04/28/21 04:00 [place] Rings Not Reportable 04/28/21 04:00 [place] Cells Not Reportable 04/28/21 04:00 Bite Cells Not Reportable 04/28/21 04:00 Crenated Cell Not Reportable 04/28/21 04:00 Elliptocytes Not Reportable 04/28/21 04:00 Acanthocytes (Spur) Not Reportable 04/28/21 04:00 Rouleaux Not Reportable 04/28/21 04:00 Hemoglobin C Crystals Not Reportable 04/28/21 04:00 Schistocytes Not Reportable 04/28/21 04:00 Malaria parasites Not Reportable 04/28/21 04:00 [place] Bodies Not Reportable 04/28/21 04:00 Hem Pathologist Commnt No 04/28/21 04:00 PT 15.3 Sec. (12.2-14.9) H 04/28/21 05:00 INR 1.09 (0.87-1.13) 04/28/21 05:00 APTT 36.6 Sec. (24.2-36.6) 04/28/21 05:00 Heparin Anti-Xa, Unfract Negative (Negative) 04/24/21 17:29 ABG pH 7.438 (7.320-7.450) 04/28/21 05:18 POC ABG pCO2 37.7 mmHg (32.0-48.0) 04/28/21 05:18 ABG pCO2 31.6 mm Hg 04/21/21 15:47 POC ABG pO2 66.5 mmHg (83-108) L 04/28/21 05:18 ABG pO2 168.1 mm Hg (80.0-90.0) H 04/21/21 15:47 POC ABG HCO3 24.9 04/28/21 05:18 ABG HCO3 23.3 mmol/L (20.0-26.0) 04/21/21 15:47 ABG O2 Saturation 93.1 (0-100) 04/28/21 05:18 ABG O2 Content 12.7 (0.0-44) 04/21/21 15:47 POC ABG Base Excess 0.8 04/28/21 05:18 ABG Base Excess 0.3 mmol/L (-2.0-3.0) 04/21/21 15:47 ABG Hemoglobin 9.7 (12.0-17.5) L 04/28/21 05:18 ABG Oxyhemoglobin 92.5 (94-98) L 04/28/21 05:18 ABG Carboxyhemoglobin 1.0 % (0.0-5.0) 04/21/21 15:47 ABG Methemoglobin 0 (0.0-1.5) 04/28/21 05:18 ABG Sodium 140.4 mmol/L (136.0-145.0) 04/28/21 05:18 ABG Potassium 3.2 mmol/L (3.40-4.50) L 04/28/21 05:18 ABG Chloride 104.0 mmol/L (98-107) 04/28/21 05:18 ABG Glucose 200 mg/dL (65-95) H 04/28/21 05:18 VBG pH 7.397 (7.320-7.420) 04/20/21 17:10 Oxyhemoglobin 97.5 % (95.0-99.0) 04/21/21 15:47 Carboxyhemoglobin 0.6 (0.5-1.5) 04/28/21 05:18 FiO2 100 % 04/21/21 15:47 FiO2 % 90.0 04/28/21 05:18 Sodium 147 mmol/L (137-145) H 04/28/21 04:00 Potassium 3.5 mmol/L (3.6-5.0) L D 04/28/21 04:00 Chloride 105.4 mmol/L (98-107) 04/28/21 04:00 Carbon Dioxide 24 mmol/L (22-30) D 04/28/21 04:00 Anion Gap 21 mmol/L 04/28/21 04:00 BUN 79 mg/dL (7-17) H 04/28/21 04:00 Creatinine 3.8 mg/dL (0.6-1.2) H 04/28/21 04:00 Estimated GFR 14 ml/min 04/28/21 04:00 BUN/Creatinine Ratio 21 % 04/28/21 04:00 Glucose 194 mg/dL (65-100) H 04/28/21 04:00 POC Glucose 174 mg/dL (70-105) H 04/28/21 11:04 Hemoglobin A1c 17.1 % (4-6) H 04/22/21 15:55 Lactic Acid 1.90 mmol/L (0.7-2.0) 04/20/21 19:56 Calcium 8.1 mg/dL (8.4-10.2) L 04/28/21 04:00 Phosphorus 5.60 mg/dL (2.5-4.5) H D 04/26/21 09:33 Magnesium 2.50 mg/dL (1.7-2.3) H 04/25/21 08:11 Iron 62 ug/dL (37-170) 04/24/21 17:29 TIBC 285 mcg/dL (250-450) 04/24/21 17:29 % Saturation 21.75 % 04/24/21 17:29 Transferrin 112 mg/dl (192-382) L 04/24/21 17:29 Total Bilirubin 0.30 mg/dL (0.1-1.2) 04/27/21 07:43 AST 53 units/L (5-40) H 04/27/21 07:43 ALT 53 units/L (7-56) 04/27/21 07:43 Alkaline Phosphatase 148 units/L (35-129) H 04/27/21 07:43 Ammonia 29.0 umol/L (25-60) 04/20/21 17:10 Total Creatine Kinase 1000 units/L (30-135) H 04/27/21 07:43 CK-MB (CK-2) 36.0 ng/mL (0.0-4.0) H 04/20/21 17:10 CK-MB (CK-2) Rel Index 0.9 (0-4) 04/20/21 17:10 Troponin T 0.021 ng/mL (0.00-0.029) 04/20/21 17:10 Serum Total Protein 5.5 g/dL (6.1-8.1) L 04/22/21 08:59 Total Protein 5.2 g/dL (6.3-8.2) L 04/27/21 07:43 Albumin 1.2 g/dL (3.9-5) L 04/27/21 07:43 Albumin/Globulin Ratio 0.3 % 04/27/21 07:43 Vohca-0-Woifrxcms 0.6 g/dL (0.2-0.3) H 04/22/21 08:59 Riukr-5-Wqjehqsnx 1.0 g/dL (0.5-0.9) H 04/22/21 08:59 Beta Globulins 0.3 g/dL (0.2-0.5) 04/22/21 08:59 Gamma Globulins 0.6 g/dL (0.8-1.7) L 04/22/21 08:59 Abnorm Protein Band 1 see below 04/22/21 08:59 PEP Interpretation see below H 04/22/21 08:59 TSH 6.040 mlU/mL (0.270-4.200) H 04/20/21 17:10 Free T4 0.93 ng/dL (0.76-1.46) 04/20/21 17:10 Arterial Blood Glucose 200 mg/dL (65-95) H 04/28/21 05:18 Arterial Blood Ionized Calcium 4.5 mg/dL (4.6-5.3) L 04/28/21 05:18 Urine Color Yellow (Yellow) 04/20/21 Unknown Urine Turbidity Slightly-cloudy (Clear) 04/20/21 Unknown Urine pH 5.0 (5.0-7.0) 04/20/21 Unknown Ur Specific [place] 1.016 (1.003-1.030) 04/20/21 Unknown Urine Protein <15 mg/dl mg/dL (Negative) 04/20/21 Unknown Urine Glucose (UA) >=500 mg/dL (Negative) 04/20/21 Unknown Urine Ketones Tr mg/dL (Negative) 04/20/21 Unknown Urine Blood Mod (Negative) 04/20/21 Unknown Urine Nitrite Neg (Negative) 04/20/21 Unknown Urine Bilirubin Neg (Negative) 04/20/21 Unknown Urine Urobilinogen < 2.0 mg/dL (<2.0) 04/20/21 Unknown Ur Leukocyte Esterase Neg (Negative) 04/20/21 Unknown Urine WBC (Auto) 3.0 /HPF (0.0-6.0) 04/20/21 Unknown Urine RBC (Auto) 1.0 /HPF (0.0-6.0) 04/20/21 Unknown Urine Mucus Few /HPF 04/20/21 Unknown Urine Osmolality 446 Mosm/kg 04/21/21 08:01 Urine Creatinine 44.3 mg/dL (0.1-20.0) H 04/21/21 08:01 Urine Sodium 71 mmol/L 04/21/21 08:01 Urine Total Protein 12 mg/dL (5-11.8) H 04/21/21 08:01 Plasma/Serum Alcohol < 0.01 % (0-0.07) 04/20/21 17:10 Heparin-induced Plt Ab Negative (Negative) 04/24/21 17:29 UF Heparin High Dose 1 % Release 04/24/21 17:29 EFE UFH Low Dose 0.1 0 % Release 04/24/21 17:29 EFE UFH Low Dose 0.5 0 % Release 04/24/21 17:29 Coronavirus (PCR) Negative (Negative) 04/21/21 Unknown Hepatitis A IgM Ab Non-reactive (NonReactive) 04/27/21 12:49 Hep Bs Antigen Nonreactive (Negative) 04/27/21 12:49 Hep B Core IgM Ab Non-reactive (NonReactive) 04/27/21 12:49 Hepatitis C Antibody Non-reactive (NonReactive) 04/27/21 12:49 [place]/IV: Voiding Method Indwelling Catheter Active Medications - Current Medications Current Medications: Generic Name Dose Route Start Last Admin Trade Name Freq PRN Reason Stop Dose Admin Acetaminophen 650 mg 04/20/21 21:31 Acetaminophen 325 Mg Tab PO Q4H PRN Pain MILD(1-3)/Fever >100.5/TURCIOS Albuterol 2.5 mg 04/22/21 14:49 04/23/21 15:18 Albuterol 2.5 Mg/3 Ml Nebu IH 2.5 mg Q4HRT PRN Administration Shortness Of Breath Lipase/Protease/Amylase 1 each 04/25/21 14:13 Lipase 10,500/Protease 25,000/Amylase 43,750 (Units) Dr Vasquez FEEDTUBE PRN PRN For Clogged Feeding Tube Dextrose 50 ml 04/24/21 11:36 Dextrose 50% In Water (25gm) 50 Ml Syringe IV Q30MIN PRN Hypoglycemia Protocol Famotidine 10 mg 04/27/21 10:00 04/28/21 09:03 Famotidine 10 Mg Tab FEEDTUBE 10 mg BID AZIZA Administration Hydralazine HCl 10 mg 04/24/21 21:22 Hydralazine 20 Mg/1 Ml Inj IV Q4HR PRN elevated BP Hydrophilic Ointment 1 applic 04/26/21 11:16 Lip Therapy Vaseline TP Q2HR PRN Dry Lips NORepinephrine/NS 8 MG-250 ML 8 mg in 250 mls @ 3.75 mls/hr 04/26/21 16:00 04/28/21 14:20 Norepinephrine/Ns 8 Mg-250 Ml (Double Conc) IV 4 mcg/min TITRATE AZIZA 7.5 mls/hr Titration Protocol 2 MCG/MIN Sodium Chloride 100 mls @ 999 mls/hr 04/27/21 10:43 Nacl 0.9% IV MITCH PRN Hypotension Insulin Human Lispro 0 unit 04/25/21 18:00 04/28/21 12:55 Insulin Lispro 100 Unit/Ml SUB-Q 3 unit Q6HR AZIZA Administration Protocol Insulin Human NPH 30 unit 04/26/21 10:00 04/28/21 09:03 Insulin Nph, Human 100 Unit/1 Ml SUB-Q 30 unit Q12HR AZIZA Administration Lorazepam 1 mg 04/26/21 11:15 Lorazepam 2 Mg/Ml Vial IV Q4H PRN Sedation Metoclopramide HCl 5 mg 04/20/21 21:31 Metoclopramide 10 Mg/2 Ml Inj IV Q6H PRN Nausea And Vomiting Multi-Ingred Cream/Lotion/Oil/Oint 1 applic 04/26/21 11:16 Mineral Oil/Petrolatum, White Ophth Oint 3.5 Gm OU Q4HR PRN Dry Eye(s) Ondansetron HCl 4 mg 04/20/21 21:31 Ondansetron 4 Mg/2 Ml Inj IV Q8H PRN Nausea And Vomiting Senna/Docusate Sodium 1 tab 04/26/21 22:00 04/28/21 09:03 Sennosides/Docusate Sodium 8.6/50 Mg Tab FEEDTUBE 1 tab BID AZIZA Administration Simple Syrup 15 ml 04/25/21 14:13 Simple Syrup 15 Ml FEEDTUBE PRN PRN Hypoglycemia Simple Syrup 30 ml 04/25/21 14:13 Simple Syrup 15 Ml FEEDTUBE PRN PRN Hypoglycemia Sodium Bicarbonate 325 mg 04/25/21 14:13 04/27/21 13:00 Sodium Bicarbonate 325 Mg Tab FEEDTUBE 325 mg PRN PRN Administration For Clogged Feeding Tube Sodium Bicarbonate 1,300 mg 04/27/21 14:00 04/28/21 13:45 Sodium Bicarbonate 650 Mg Tab PO 1,300 mg TID AZIZA Administration Sodium Chloride 10 ml 04/20/21 22:00 04/28/21 09:04 Sodium Chloride 0.9% 10 Ml Flush Syringe IV 10 ml BID AZIZA Administration Sodium Chloride 10 ml 04/20/21 21:31 Sodium Chloride 0.9% 10 Ml Flush Syringe IV PRN PRN LINE FLUSH Nutrition/Malnutrition Assess - Dietary Evaluation Nutrition/Malnutrition Findings: Nutrition Notes Start: 04/21/21 12:15 Freq: Status: Active Protocol: Document 04/27/21 12:21 JOSE (Rec: 04/27/21 13:30 JOSE [id number]) Nutrition Notes Need for Assessment generated from: MD Order Initial or Follow up Reassessment Current Diagnosis Acute Kidney Injury, Hyperlipidemia Other Pertinent Diagnosis Acute metabolic encephalopathy , Dehydration, Hyperosmolar non-ketotic state Current Diet TF-Nepro w/CARBSTEADY @ 27 ml/ hr (since D 04/27). Labs/Tests 04/27: Cl 110.1, CO2 15, BUN 109, Crea 4.3, Glu 218, AST 53 , AlkPhos 148, Tpro 5.2, Alb 1 .2. Pertinent Medications 04/27: Insulin, others nutritionally unremarkable. Height 5 ft 2 in Weight 72.4 kg [place] Body Weight (kg) 50.00 BMI 29.2 Weight change and time frame No body weight change reported . Weight Status Overweight Subjective/Other Information RD comsult for routine F/U on TF tolerance and evaluation of nutritional intake. MD requested change TF to Nepro, according to Progress note. Hypernatremia resolved. Percent of energy/protein needs met: Prescribed TF-Nepro w/ CARBSTEADY @ 27 ml/hr provides for energy/protein needs (1, 389 Kcal/63 g) during LOS, 100 % Kcal; 72% AA. Burn Absent Trauma Absent GI Symptoms None Food Allergy No Skin Integrity/Comment Clear, warm, dry. Current % PO Other Minimum of two criteria No #1 Nutrition Diagnosis Inadequate oral intake Diagnosis Progress(for reassessment Continues documentation) Is patient on ventilator? No Is Patient Ambulatory and/or Out of Bed No REE-([facility]-confined to bed) 5827.420 Calculation Used for Recommendations [facility] Additional Notes Protein: 1.2-2 g/k-145 g/ day Fluids: 1 ml/kcal, or as per MD. Nutrition Intervention Nutrition Support: Change TF to Mepro w/ CARBSTEADY @ 32 ml/hr. Flush: 140 ml water Q 4 hr, or as per MD. Kcal 1,389 Protein (gm) 63 Carbohydrates (gm) 124 Fat (gm) 74 Fluid (mL) 561 Fiber (gm) 10 % RDI: 100% Kcal; 72% AA. Goal #1 Provide at least 75% of energy /protein needs through Enteral Feeding during LOS. Follow-Up By: 04/29/21 Additional Comments Continue monitoring TF tolerance and BM.
[2021-04-28 16:10] LABS: Heparin-Induced Platelet Antib Negative (Negative); Unfractionated Heparin Negative (Negative)
[2021-04-29] MEDS: INSULIN LISPRO 100 UNIT/ML SUB-Q SCH ×4 (01:19→17:04)
[2021-04-29] MEDS: NORepinephrine/NS 8 MG-250 ML 8 MG/250 ML INFUS..BTL IV SCH (01:20)
[2021-04-29] MEDS: FREE WATER PO SCH ×6 (02:15→21:50)
--- NOTE | 2021-04-29 02:49 | XRay Report ---
CHEST 1 VIEW INDICATION / CLINICAL INFORMATION: follow up respiratory failure. COMPARISON: 04/28/2021 FINDINGS: SUPPORT DEVICES: Stable, satisfactory device positioning. HEART / MEDIASTINUM: No significant abnormality. LUNGS / PLEURA: Bilateral pulmonary opacities persist. No significant interval change. No pneumothora x. ADDITIONAL FINDINGS: No significant additional findings. IMPRESSION: 1. Stable appearance of bilateral pulmonary opacities. Signer Name: Carolee Torres MD Signed: 04/29/2021 2:45 AM Workstation Name: [id number]
[2021-04-29] MEDS: ACETAMINOPHEN 325 MG TAB PO PRN (03:53)
[2021-04-29 05:37] LABS: Hematocrit 26.2 % (30.3-42.9); Hemoglobin 8.3 gm/dl (10.1-14.3); Mean Corpuscular HGB Conc 32 % (30-34); Mean Corpuscular Volume 84 fl (79-97); Platelet Count 132 K/mm3 (140-440); Red Blood Count 3.12 M/mm3 (3.65-5.03); Red Cell Distribution Width 16.3 % (13.2-15.2)
[2021-04-29 05:57] LABS: Alanine Aminotransferase 71 units/L (7-56); Albumin 1.6 g/dL (3.9-5); BUN/Creatinine Ratio 19; Blood Urea Nitrogen 63 mg/dL (7-17); Calcium 8.2 mg/dL (8.4-10.2); Hemolysis Index 5
[2021-04-29 06:00] LABS: Bilirubin,Direct < 0.2 mg/dL (0-0.2)
[2021-04-29] MEDS: SENNOSIDES/DOCUSATE SODIUM 8.6/50 MG TAB FEEDTUBE SCH ×2 (09:05→21:50)
[2021-04-29] MEDS: SODIUM BICARBONATE 650 MG TAB PO SCH ×3 (09:05→20:23)
[2021-04-29] MEDS: FAMOTIDINE 10 MG TAB FEEDTUBE SCH ×3 (09:06→21:50)
--- NOTE | 2021-04-29 09:06 | Progress Note ---
Assessment and Plan (1) Acute metabolic encephalopathy (2) Diabetic hyperosmolar non-ketotic state 3) SYED (acute kidney injury) (4) Dehydration (5) Hypernatremia (6) Rhabdomyolysis (7) Hypernatremia 8) GERD (gastroesophageal reflux disease) (9) Metabolic acidosis (10) Leukocytosis R&B of [employer] d/w Nephew who is POA. He is agreeable to HD. s/p vascath and first HD 04/27, 2nd HD04/28 no indication for HD today will assess dialysis needs daily will cont to monitor signs of renal recovery closely. Intubated on Vent now. renally dose meds Strict I&O In ICU Subjective Date of service: 04/29/21 Principal diagnosis: Acute respiratory failure Interval history: patient is intubated, no overnight events per RN Objective - Vital Signs Vital signs: Vital Signs - 12hr 04/28/21 04/28/21 04/28/21 21:15 21:30 21:45 Temperature Pulse Rate 102 H 105 H 103 H Pulse Rate [ From Monitor] Respiratory 16 21 13 Rate Blood Pressure 145/64 145/64 121/60 O2 Sat by Pulse 99 99 99 Oximetry 04/28/21 04/28/21 04/28/21 22:00 22:15 22:30 Temperature Pulse Rate 92 H 99 H 101 H Pulse Rate [ From Monitor] Respiratory 28 H 22 28 H Rate Blood Pressure 121/60 101/57 101/57 O2 Sat by Pulse 100 100 98 Oximetry 04/28/21 04/28/21 04/28/21 22:45 23:00 23:16 Temperature Pulse Rate 95 H 96 H 96 H Pulse Rate [ From Monitor] Respiratory 22 25 H 29 H Rate Blood Pressure 111/46 111/46 82/37 O2 Sat by Pulse 100 98 96 Oximetry 04/28/21 04/28/21 04/28/21 23:30 23:38 23:45 Temperature Pulse Rate 93 H 94 H 110 H Pulse Rate [ From Monitor] Respiratory 20 25 H Rate Blood Pressure 89/43 119/56 O2 Sat by Pulse 100 99 99 Oximetry 04/28/21 04/29/21 04/29/21 23:51 00:00 00:15 Temperature 101.1 F H Pulse Rate 90 90 Pulse Rate [ 98 H From Monitor] Respiratory 23 20 Rate Blood Pressure 90/48 85/39 O2 Sat by Pulse 98 98 Oximetry 04/29/21 04/29/21 04/29/21 00:30 00:45 01:00 Temperature Pulse Rate 89 86 85 Pulse Rate [ From Monitor] Respiratory 16 20 26 H Rate Blood Pressure 90/36 89/35 97/38 O2 Sat by Pulse 99 99 98 Oximetry 04/29/21 04/29/21 04/29/21 01:15 01:30 01:45 Temperature Pulse Rate 87 91 H 93 H Pulse Rate [ From Monitor] Respiratory 23 19 19 Rate Blood Pressure 97/42 109/46 110/49 O2 Sat by Pulse 99 99 99 Oximetry 04/29/21 04/29/21 04/29/21 02:00 02:15 02:30 Temperature Pulse Rate 105 H 106 H 99 H Pulse Rate [ From Monitor] Respiratory 23 27 H 19 Rate Blood Pressure 115/58 105/61 116/49 O2 Sat by Pulse 98 97 97 Oximetry 04/29/21 04/29/21 04/29/21 02:45 03:00 03:15 Temperature Pulse Rate 97 H 91 H 103 H Pulse Rate [ From Monitor] Respiratory 17 26 H 29 H Rate Blood Pressure 111/48 97/46 94/53 O2 Sat by Pulse 99 97 97 Oximetry 04/29/21 04/29/21 04/29/21 03:28 03:30 03:45 Temperature Pulse Rate 96 H 100 H 93 H Pulse Rate [ From Monitor] Respiratory 17 17 Rate Blood Pressure 112/51 107/45 O2 Sat by Pulse 96 97 95 Oximetry 04/29/21 04/29/21 04/29/21 04:00 04:15 04:30 Temperature 100.7 F H Pulse Rate 90 90 88 Pulse Rate [ From Monitor] Respiratory 20 20 19 Rate Blood Pressure 96/43 94/43 92/43 O2 Sat by Pulse 96 96 97 Oximetry 04/29/21 04/29/21 04/29/21 04:45 05:00 05:15 Temperature Pulse Rate 88 96 H 89 Pulse Rate [ From Monitor] Respiratory 18 24 22 Rate Blood Pressure 90/43 112/58 101/48 O2 Sat by Pulse 98 98 98 Oximetry 04/29/21 04/29/21 04/29/21 05:30 05:45 06:00 Temperature Pulse Rate 98 H 87 84 Pulse Rate [ From Monitor] Respiratory 20 22 21 Rate Blood Pressure 103/55 104/44 118/52 O2 Sat by Pulse 97 97 97 Oximetry 04/29/21 04/29/21 04/29/21 06:15 06:30 06:45 Temperature Pulse Rate 83 81 90 Pulse Rate [ From Monitor] Respiratory 21 21 22 Rate Blood Pressure 114/45 115/47 134/54 O2 Sat by Pulse 97 98 97 Oximetry 04/29/21 04/29/21 04/29/21 07:00 07:15 07:31 Temperature Pulse Rate 82 86 91 H Pulse Rate [ From Monitor] Respiratory 22 16 24 Rate Blood Pressure 114/51 125/56 146/53 O2 Sat by Pulse 98 98 97 Oximetry 04/29/21 04/29/21 04/29/21 07:45 07:49 08:00 Temperature 100.4 F H Pulse Rate 97 H 89 Pulse Rate [ From Monitor] Respiratory 24 29 H Rate Blood Pressure 137/63 115/62 O2 Sat by Pulse 96 96 Oximetry 04/29/21 04/29/21 04/29/21 08:15 08:30 08:45 Temperature Pulse Rate 85 85 88 Pulse Rate [ From Monitor] Respiratory 20 24 20 Rate Blood Pressure 126/50 139/55 147/58 O2 Sat by Pulse 97 98 98 Oximetry 04/29/21 08:57 Temperature Pulse Rate 88 Pulse Rate [ From Monitor] Respiratory Rate Blood Pressure 147/58 O2 Sat by Pulse 98 Oximetry - General Appearance General appearance: intubated EENT: ATNC, PERRL, mucous membranes dry Neck: no JVD Respiratory: Present: Decreased Breath Sounds Cardiology: regular, S1S2 Gastrointestinal: normoactive bowel sounds, no tenderness, no distended, no masses Integumentary: no rash, warm and dry Neurologic: other (intubated) Musculoskeletal: other (treace pitting edema in BLE) Psychiatric: other (sedated) - Lab 04/29/21 04:00 04/29/21 04:00 Most recent lab results ABG pH 7.438 (7.320-7.450) 04/28/21 05:18 ABG pCO2 31.6 mm Hg 04/21/21 15:47 ABG pO2 168.1 mm Hg (80.0-90.0) H 04/21/21 15:47 ABG HCO3 23.3 mmol/L (20.0-26.0) 04/21/21 15:47 ABG O2 Saturation 93.1 (0-100) 04/28/21 05:18 Calcium 8.2 mg/dL (8.4-10.2) L 04/29/21 04:00 Phosphorus 4.20 mg/dL (2.5-4.5) 04/29/21 04:00 Magnesium 1.90 mg/dL (1.7-2.3) 04/29/21 04:00 Urine Creatinine 44.3 mg/dL (0.1-20.0) H 04/21/21 08:01 Urine Sodium 71 mmol/L 04/21/21 08:01 Urine Total Protein 12 mg/dL (5-11.8) H 04/21/21 08:01 Medications & Allergies - Medications Allergies/Adverse Reactions: Allergies No Known Allergies Allergy (Unverified 04/20/21 14:35) Active Medications: Generic Name Dose Route Start Last Admin Trade Name Freq PRN Reason Stop Dose Admin Acetaminophen 650 mg 04/20/21 21:31 04/29/21 03:53 Acetaminophen 325 Mg Tab PO 650 mg Q4H PRN Administration Pain MILD(1-3)/Fever >100.5/TURCIOS Albuterol 2.5 mg 04/22/21 14:49 04/23/21 15:18 Albuterol 2.5 Mg/3 Ml Nebu IH 2.5 mg Q4HRT PRN Administration Shortness Of Breath Lipase/Protease/Amylase 1 each 04/25/21 14:13 Lipase 10,500/Protease 25,000/Amylase 43,750 (Units) Dr Vasquez FEEDTUBE PRN PRN For Clogged Feeding Tube Dextrose 50 ml 04/24/21 11:36 Dextrose 50% In Water (25gm) 50 Ml Syringe IV Q30MIN PRN Hypoglycemia Protocol Famotidine 10 mg 04/27/21 10:00 04/28/21 09:03 Famotidine 10 Mg Tab FEEDTUBE 10 mg BID AZIZA Administration Hydralazine HCl 10 mg 04/24/21 21:22 Hydralazine 20 Mg/1 Ml Inj IV Q4HR PRN elevated BP Hydrophilic Ointment 1 applic 04/26/21 11:16 Lip Therapy Vaseline TP Q2HR PRN Dry Lips NORepinephrine/NS 8 MG-250 ML 8 mg in 250 mls @ 3.75 mls/hr 04/26/21 16:00 04/29/21 01:20 Norepinephrine/Ns 8 Mg-250 Ml (Double Conc) IV 4 mcg/min TITRATE AZIZA 7.5 mls/hr Administration Protocol 2 MCG/MIN Sodium Chloride 100 mls @ 999 mls/hr 04/27/21 10:43 Nacl 0.9% IV MITCH PRN Hypotension Insulin Human Lispro 0 unit 04/25/21 18:00 04/29/21 01:19 Insulin Lispro 100 Unit/Ml SUB-Q 4 unit Q6HR AZIZA Administration Protocol Insulin Human NPH 35 unit 04/29/21 10:00 Insulin Nph, Human 100 Unit/1 Ml SUB-Q Q12HR AZIZA Lorazepam 1 mg 04/26/21 11:15 Lorazepam 2 Mg/Ml Vial IV Q4H PRN Sedation Metoclopramide HCl 5 mg 04/20/21 21:31 Metoclopramide 10 Mg/2 Ml Inj IV Q6H PRN Nausea And Vomiting Multi-Ingred Cream/Lotion/Oil/Oint 1 applic 04/26/21 11:16 Mineral Oil/Petrolatum, White Ophth Oint 3.5 Gm OU Q4HR PRN Dry Eye(s) Ondansetron HCl 4 mg 04/20/21 21:31 Ondansetron 4 Mg/2 Ml Inj IV Q8H PRN Nausea And Vomiting Senna/Docusate Sodium 1 tab 04/26/21 22:00 04/28/21 22:28 Sennosides/Docusate Sodium 8.6/50 Mg Tab FEEDTUBE 1 tab BID AZIZA Administration Simple Syrup 15 ml 04/25/21 14:13 Simple Syrup 15 Ml FEEDTUBE PRN PRN Hypoglycemia Simple Syrup 30 ml 04/25/21 14:13 Simple Syrup 15 Ml FEEDTUBE PRN PRN Hypoglycemia Sodium Bicarbonate 325 mg 04/25/21 14:13 04/27/21 13:00 Sodium Bicarbonate 325 Mg Tab FEEDTUBE 325 mg PRN PRN Administration For Clogged Feeding Tube Sodium Bicarbonate 1,300 mg 04/27/21 14:00 04/28/21 20:45 Sodium Bicarbonate 650 Mg Tab PO 1,300 mg TID AZIZA Administration Sodium Chloride 10 ml 04/20/21 22:00 04/28/21 22:30 Sodium Chloride 0.9% 10 Ml Flush Syringe IV 10 ml BID AZIZA Administration Sodium Chloride 10 ml 04/20/21 21:31 Sodium Chloride 0.9% 10 Ml Flush Syringe IV PRN PRN LINE FLUSH
[2021-04-29] MEDS: INSULIN NPH, HUMAN 100 UNIT/1 ML SUB-Q SCH ×2 (09:25→22:01)
--- NOTE | 2021-04-29 11:05 | Procedure Note ---
Date of procedure: 04/29/21 Pre-op diagnosis: encephalopathy Post-op diagnosis: same Procedure: flouro guided lumbar puncture Findings: elevated pressure, [id number] Anesthesia: local Surgeon: LISA CAO Estimated blood loss: none Pathology: list (4 csf tubes) Specimen disposition: to lab Condition: stable Disposition: floor
--- NOTE | 2021-04-29 11:06 | Progress Note ---
<LISA CLIFTON - Last Filed: 04/29/21 15:31> Assessment and Plan Assessment and plan: This is a 80-year-old female, detention resident with past medical history of GERD, hypothyroidism, hyperlipidemia, schizophrenia and dementia admitted with hypothermia, hyponatremia, hypokalemia, lactic acidosis, acute kidney injury, rhabdomyolysis and hyperosmolar nonketotic state. Hospital Course to Date: This is a 80-year-old female who was detention resident at [place] with GERD, hypothyroidism, hyperlipidemia, schizophrenia and dementia presented to the emergency department on 04/20 after being found unresponsive by the staff via EMS. Per EMS glucose levels read as high. Work-up in the emergency department revealed severe hypernatremia, leukocytosis, metabolic acidosis, hyperchloremia, elevated BUN/creatinine, lactic acidosis and hyperglycemia. Patient was also hypothermic on admit. CT head showed findings suggestive of the possibility of normal pressure hydrocephalus. Patient was admitted to the hospitalist service with acute metabolic encephalopathy, diabetic hyperosmolar nonketotic state, acute kidney injury, hypernatremia, rhabdomyolysis and leukocytosis with consults to nephrology and CCM. 04/21: Given 1 L LR bolus per nephrology and D5W increased to 125 mL's per hour, COVID-19 PCR pending, CXR and ABG ordered as patient was weaned from BiPAP to 3 L nasal cannula however was uptitrated back to nonrebreather. Will obtain blood cultures x2 given her leukocytosis and hypothermia. Replace potassium. Neurosurgery and neurology consulted and Luther catheter placed. 04/22: Improvement to sodium noted, slight hypokalemia which will be repleted, slight improvement to renal function, LFTs and rhabdomyolysis. Seen by neurosurgery today. Patient still making urine. transition to ssi and start TF as AG 15 04/23/2021: Given racemic epinephrine again due to stridor, continue IV fluids per nephrology, continue to trend sodium and BMP. 04/24/2021: /30 increased d/t hyperglycemia but recent BMP showed BG>300, gave additional 5 units IV insulin and ordered 5 units TID scheduled. However after IV insulin her PCOT was 400. Start on insulin gtt for hyperglycemia. Per RN she was not of IV D5 overniught d/t having one IV which was needed for emergency. Day RN did start dextrose. Remains with hyperglycemia. 04/25: Patient obtunded, withdrawal to pain only, on 50%Venti mask SPO2 abobe 92%. Plan to transition to SubQ insulin. Patient with mild hypernatremia this am, FWF added, will stop IVF for now. 04/26: Patient s/p intubation this am. Mentation is unchanged, plan for MRI brain today per NeuroSurg. Still hyperglycemic, hypernatremia improved, D5W D/katlyn, and basal insulin adjusted. 04/27: Bronch overnight. CXR with mild improvement. D/w Nephro plan for HD today, RIJ VasCath inserted. MRI on hold per [facility] patient is too unstable at this time, plan for possible spinal drained tomorrow to see if mentation will improve. 04/28: Tolerated HD overnight, only UF. Mentation remains the same. D/w [facility] plan for possible large volume spinal tap under fluoroscopy today. Plan for possible HD again today. Continue FWF for elevated Na. 04/29: MARY overnight. Plan for spinal tap this am. febrile overnight with leukocytosis, remains on pressors and more tachycardic now. Will panculture patient, and empiric IV was initiated. Remains hyperglycemic, basal insulin ad justed. Assessment and Plan #Neuro: Acute metabolic encephalopathy #Normal Pressure Hydrocephalus -CT head shows lateral ventricles and third ventricle dilation, raises possibility of normal pressure hydrocephalus -Neurology and neurosurgery consulted, appreciate recommendations -neurosurgery no acute interventions -MRI brain on hold patient too unstable -plan for spinal tap today -Maintain sleep-wake cycle -Avoid delirium -Correct electrolyte derangements -Hold off on restarting home antipsychotic medications when obtained #Hypotension #Tachycardia #Sepsis -Low BP, multifactorial-hypovelemia vs infectious process -Tachycardia and febrile this am -Continue pressorsn- Levophed gtt -Titrate pressors for a MAP above 65 -Continue blood pressure monitor per protocol #Respiratory: Acute hypoxic respiratory failure #CAP vs HCAP #Possible Aspiration -Patient decompensated overnight SPO2 dropped in the low 70s -S/p intubation this am 04/26 -Vent setting:PRVC-40%,8,14,450 -04/26 s/p bronchoscopy, this am CXR with mild improvement -This am ABG pending -[facility] consulted, appreciate recommendations -VAP bundle addressed -Aspiration precaution HOB above 30 -Daily SBT and SAT trials as tolerated -Daily ABG and CXR -Continue SPO2 monitoring for SPO2 goal above 92% #GI:Transaminitis #Hypoalbuminemia -Presented with transaminitis -Okay to resume TF -Trend LFTs -Ntr consult for TF -BR: Senokot -PPI #:Acute Kidney Injury (SYED) likely secondary to vasomotor nephropathy #Hypernatremia-improved #Hypokalemia-resolved #Urinary Retention-resolved -FeNA 0.50 indicating prerenal sate -Nephrology and CCM consulted, appreciate recommendations -04/27 vascath inserted and HD initiated, patient tolerated it well -HD yesterday -Luther catheter placed for strict intake and output -Avoid nephrotoxic medication -Continue FWF -Trend BMP -Will D/C D5w due to persistent hyperglycemia -Renally dose medications -Trend BMP #ID:CAP vs HCAP #Leukocytosis -Patient presented hypothemic -CXR shows increased interstitial prominence of densities in bilateral lungs -COVID-19 PCR negative -Blood culture x2 NGTD -Antibiotic therapy course ended today 04/25 -Patient spike temp this am with worsening leukocytosis, hypotensive with tachycardia -Orders placed for UA, blood culture, and sputum culture -Empiric IV abx initiated -Monitor WBC and fever curve -Continue to F/U on B.cult -Daily CBC monitor -Consider ID consult if febrile or/and if leukocytosis reoccur #Endo:Hyperglycemia #s/p HHNK -Transition to SubQ insulin -Continue high dose SSI Q6hrs -Basal, NPH adjusted -Avoid hypoglycemia #Heme:Thrombocytopenia-imporved -Presented with low plt, unknow etiology -Plt count is improving -AC still on hold -Trend CBC -Transfuse to hemoglobin less than 7 -Monitor for bleeding -r/o DVT, BUE doppler neg -SCD to bilateral lower extremities while in bed The high probability of a clinically significant, sudden or life threatening deterioration of the [Neuro, Respiratory,ID] system(s) required my full and direct attention, intervention and personal management. The aggregate critical care time was [60] minutes. This time is in addition to time spent performing reported procedures but includes the following: [x] Data Review and interpretation [x] Patient assessment and monitoring of vital signs [x] Documentation [x] Medication orders and management Disposition Plan: ICU Total Time Spent with Patient (Minutes): 60 History Interval history: Patient seen and examined at the bedside. Intubated, not on any sedation. Remains unresponsive, only withdrawal from pain. Still on low dose levophed gtt for hypotension. Plan for spinal tap this am. MARY overnight Hospitalist Physical - Constitutional Vitals: Temp Pulse Resp BP Pulse Ox 100.4 F H 88 20 147/58 98 04/29/21 07:49 04/29/21 08:57 04/29/21 08:45 04/29/21 08:57 04/29/21 08:57 General appearance: Present: no acute distress, other (Intubated and unresponsive) - EENT Eyes: Present: PERRL - Respiratory Respiratory effort: normal Respiratory: bilateral: rhonchi - Cardiovascular Rhythm: regular Heart Sounds: Present: S1 & S2 - Extremities Extremities: no ischemia, pulses intact, pulses symmetrical Extremity abnormal: edema - Peripheral Assessment Generalized Edema Type: Pitting Edema Degree: 3+ Capillary Refill: < 3 seconds Skin Temperature: Warm Peripheral Pulses: within normal limits - Abdominal General gastrointestinal: soft, non-tender, normal bowel sounds - Integumentary Integumentary: Present: warm, dry - Psychiatric Psychiatric: other (Intubated and unresponsive) - Neurologic Neurologic: other (Intubated and unresponsive) - Allied Health Allied health notes reviewed: nursing HEART Score - HEART Score Troponin: Troponin T 0.021 ng/mL (0.00-0.029) 04/20/21 17:10 Results - Labs CBC & Chem 7: 04/29/21 04:00 04/29/21 04:00 Labs: Laboratory Last Values WBC 13.3 K/mm3 (4.5-11.0) H 04/29/21 04:00 RBC 3.12 M/mm3 (3.65-5.03) L 04/29/21 04:00 Hgb 8.3 gm/dl (10.1-14.3) L 04/29/21 04:00 Hct 26.2 % (30.3-42.9) L 04/29/21 04:00 MCV 84 fl (79-97) 04/29/21 04:00 MCH 27 pg (28-32) L 04/29/21 04:00 MCHC 32 % (30-34) 04/29/21 04:00 RDW 16.3 % (13.2-15.2) H 04/29/21 04:00 Plt Count 132 K/mm3 (140-440) L 04/29/21 04:00 Add Manual Diff Complete 04/28/21 04:00 Total Counted 100 04/28/21 04:00 Seg Neutrophils % Android Software Engineer 04/28/21 04:00 Seg Neuts % (Manual) 77.0 % (40.0-70.0) H 04/26/21 09:33 Band Neutrophils % 2.0 % 04/28/21 04:00 Lymphocytes % (Manual) 1.0 % (13.4-35.0) L 04/28/21 04:00 Reactive Lymphs % (Man) 0 % 04/28/21 04:00 Monocytes % (Manual) 1.0 % (0.0-7.3) 04/28/21 04:00 Eosinophils % (Manual) 3.0 % (0.0-4.3) 04/28/21 04:00 Metamyelocytes % 1.0 % 04/28/21 04:00 Myelocytes % 0 % 04/28/21 04:00 Promyelocytes % 0 % 04/28/21 04:00 Blast Cells % 0 % 04/28/21 04:00 Nucleated RBC % 4.0 % (0.0-0.9) H 04/28/21 04:00 Seg Neutrophils # Man 11.6 K/mm3 (1.8-7.7) H 04/28/21 04:00 Band Neutrophils # 0.3 K/mm3 04/28/21 04:00 Lymphocytes # (Manual) 0.1 K/mm3 (1.2-5.4) L 04/28/21 04:00 Abs React Lymphs (Man) 0.0 K/mm3 04/28/21 04:00 Monocytes # (Manual) 0.1 K/mm3 (0.0-0.8) 04/28/21 04:00 Eosinophils # (Manual) 0.4 K/mm3 (0.0-0.4) 04/28/21 04:00 Basophils # (Manual) 0.0 K/mm3 (0.0-0.1) 04/28/21 04:00 Metamyelocytes # 0.1 K/mm3 04/28/21 04:00 Myelocytes # 0.0 K/mm3 04/28/21 04:00 Promyelocytes # 0.0 K/mm3 04/28/21 04:00 Blast Cells # 0.0 K/mm3 04/28/21 04:00 WBC Morphology Not Reportable 04/28/21 04:00 Hypersegmented Neuts Not Reportable 04/28/21 04:00 Hyposegmented Neuts Not Reportable 04/28/21 04:00 Hypogranular Neuts Not Reportable 04/28/21 04:00 Smudge Cells Not Reportable 04/28/21 04:00 Toxic Granulation Not Reportable 04/28/21 04:00 Toxic Vacuolation Not Reportable 04/28/21 04:00 Dohle Bodies Not Reportable 04/28/21 04:00 Pelger-Huet Anomaly Not Reportable 04/28/21 04:00 Moni Rods Not Reportable 04/28/21 04:00 Platelet Estimate Consistent w auto 04/28/21 04:00 Clumped Platelets Not Reportable 04/28/21 04:00 Plt Clumps, EDTA Not Reportable 04/28/21 04:00 Large Platelets Few 04/28/21 04:00 Giant Platelets Not Reportable 04/28/21 04:00 Platelet Satelliting Not Reportable 04/28/21 04:00 Plt Morphology Comment Not Reportable 04/28/21 04:00 RBC Morphology Not Reportable 04/28/21 04:00 Dimorphic RBCs Not Reportable 04/28/21 04:00 Polychromasia Not Reportable 04/28/21 04:00 Hypochromasia Not Reportable 04/28/21 04:00 Poikilocytosis Not Reportable 04/28/21 04:00 Anisocytosis Not Reportable 04/28/21 04:00 Microcytosis Not Reportable 04/28/21 04:00 Macrocytosis Not Reportable 04/28/21 04:00 Spherocytes Not Reportable 04/28/21 04:00 Pappenheimer Bodies Not Reportable 04/28/21 04:00 Sickle Cells Not Reportable 04/28/21 04:00 Target Cells 1+ 04/28/21 04:00 Tear Drop Cells Not Reportable 04/28/21 04:00 Ovalocytes Not Reportable 04/28/21 04:00 Helmet Cells Not Reportable 04/28/21 04:00 Parkinson-Colby Bodies Not Reportable 04/28/21 04:00 [place] Rings Not Reportable 04/28/21 04:00 [place] Cells Not Reportable 04/28/21 04:00 Bite Cells Not Reportable 04/28/21 04:00 Crenated Cell Not Reportable 04/28/21 04:00 Elliptocytes Not Reportable 04/28/21 04:00 Acanthocytes (Spur) Not Reportable 04/28/21 04:00 Rouleaux Not Reportable 04/28/21 04:00 Hemoglobin C Crystals Not Reportable 04/28/21 04:00 Schistocytes Not Reportable 04/28/21 04:00 Malaria parasites Not Reportable 04/28/21 04:00 Herrera Bodies Not Reportable 04/28/21 04:00 Hem Pathologist Commnt No 04/28/21 04:00 PT 15.3 Sec. (12.2-14.9) H 04/28/21 05:00 INR 1.09 (0.87-1.13) 04/28/21 05:00 APTT 36.6 Sec. (24.2-36.6) 04/28/21 05:00 Heparin Anti-Xa, Unfract Negative (Negative) 04/24/21 17:29 ABG pH 7.438 (7.320-7.450) 04/28/21 05:18 POC ABG pCO2 37.7 mmHg (32.0-48.0) 04/28/21 05:18 ABG pCO2 31.6 mm Hg 04/21/21 15:47 POC ABG pO2 66.5 mmHg (83-108) L 04/28/21 05:18 ABG pO2 168.1 mm Hg (80.0-90.0) H 04/21/21 15:47 POC ABG HCO3 24.9 04/28/21 05:18 ABG HCO3 23.3 mmol/L (20.0-26.0) 04/21/21 15:47 ABG O2 Saturation 93.1 (0-100) 04/28/21 05:18 ABG O2 Content 12.7 (0.0-44) 04/21/21 15:47 POC ABG Base Excess 0.8 04/28/21 05:18 ABG Base Excess 0.3 mmol/L (-2.0-3.0) 04/21/21 15:47 ABG Hemoglobin 9.7 (12.0-17.5) L 04/28/21 05:18 ABG Oxyhemoglobin 92.5 (94-98) L 04/28/21 05:18 ABG Carboxyhemoglobin 1.0 % (0.0-5.0) 04/21/21 15:47 ABG Methemoglobin 0 (0.0-1.5) 04/28/21 05:18 ABG Sodium 140.4 mmol/L (136.0-145.0) 04/28/21 05:18 ABG Potassium 3.2 mmol/L (3.40-4.50) L 04/28/21 05:18 ABG Chloride 104.0 mmol/L (98-107) 04/28/21 05:18 ABG Glucose 200 mg/dL (65-95) H 04/28/21 05:18 VBG pH 7.397 (7.320-7.420) 04/20/21 17:10 Oxyhemoglobin 97.5 % (95.0-99.0) 04/21/21 15:47 Carboxyhemoglobin 0.6 (0.5-1.5) 04/28/21 05:18 FiO2 100 % 04/21/21 15:47 FiO2 % 90.0 04/28/21 05:18 Sodium 139 mmol/L (137-145) D 04/29/21 04:00 Potassium 3.8 mmol/L (3.6-5.0) 04/29/21 04:00 Chloride 99.3 mmol/L (98-107) 04/29/21 04:00 Carbon Dioxide 23 mmol/L (22-30) 04/29/21 04:00 Anion Gap 21 mmol/L 04/29/21 04:00 BUN 63 mg/dL (7-17) H 04/29/21 04:00 Creatinine 3.4 mg/dL (0.6-1.2) H 04/29/21 04:00 Estimated GFR 16 ml/min 04/29/21 04:00 BUN/Creatinine Ratio 19 % 04/29/21 04:00 Glucose 249 mg/dL (65-100) H 04/29/21 04:00 POC Glucose 236 mg/dL (70-105) H 04/29/21 01:16 Hemoglobin A1c 17.1 % (4-6) H 04/22/21 15:55 Lactic Acid 1.90 mmol/L (0.7-2.0) 04/20/21 19:56 Calcium 8.2 mg/dL (8.4-10.2) L 04/29/21 04:00 Phosphorus 4.20 mg/dL (2.5-4.5) 04/29/21 04:00 Magnesium 1.90 mg/dL (1.7-2.3) 04/29/21 04:00 Iron 62 ug/dL (37-170) 04/24/21 17:29 TIBC 285 mcg/dL (250-450) 04/24/21 17:29 % Saturation 21.75 % 04/24/21 17:29 Transferrin 112 mg/dl (192-382) L 04/24/21 17:29 Total Bilirubin 0.30 mg/dL (0.1-1.2) 04/29/21 04:00 Direct Bilirubin < 0.2 mg/dL (0-0.2) 04/29/21 04:00 Indirect Bilirubin 0.1 mg/dL 04/29/21 04:00 AST 61 units/L (5-40) H 04/29/21 04:00 ALT 71 units/L (7-56) H 04/29/21 04:00 Alkaline Phosphatase 170 units/L (35-129) H 04/29/21 04:00 Ammonia 29.0 umol/L (25-60) 04/20/21 17:10 Total Creatine Kinase 1000 units/L (30-135) H 04/27/21 07:43 CK-MB (CK-2) 36.0 ng/mL (0.0-4.0) H 04/20/21 17:10 CK-MB (CK-2) Rel Index 0.9 (0-4) 04/20/21 17:10 Troponin T 0.021 ng/mL (0.00-0.029) 04/20/21 17:10 Serum Total Protein 5.5 g/dL (6.1-8.1) L 04/22/21 08:59 Total Protein 5.1 g/dL (6.3-8.2) L 04/29/21 04:00 Albumin 1.6 g/dL (3.9-5) L 04/29/21 04:00 Albumin/Globulin Ratio 0.5 % 04/29/21 04:00 Uqxuj-5-Dhogebmnw 0.6 g/dL (0.2-0.3) H 04/22/21 08:59 Vvlnp-3-Cmkwtydjl 1.0 g/dL (0.5-0.9) H 04/22/21 08:59 Beta Globulins 0.3 g/dL (0.2-0.5) 04/22/21 08:59 Gamma Globulins 0.6 g/dL (0.8-1.7) L 04/22/21 08:59 Abnorm Protein Band 1 see below 04/22/21 08:59 PEP Interpretation see below H 04/22/21 08:59 TSH 6.040 mlU/mL (0.270-4.200) H 04/20/21 17:10 Free T4 0.93 ng/dL (0.76-1.46) 04/20/21 17:10 Arterial Blood Glucose 200 mg/dL (65-95) H 04/28/21 05:18 Arterial Blood Ionized Calcium 4.5 mg/dL (4.6-5.3) L 04/28/21 05:18 Urine Color Yellow (Yellow) 04/20/21 Unknown Urine Turbidity Slightly-cloudy (Clear) 04/20/21 Unknown Urine pH 5.0 (5.0-7.0) 04/20/21 Unknown Ur Specific [place] 1.016 (1.003-1.030) 04/20/21 Unknown Urine Protein <15 mg/dl mg/dL (Negative) 04/20/21 Unknown Urine Glucose (UA) >=500 mg/dL (Negative) 04/20/21 Unknown Urine Ketones Tr mg/dL (Negative) 04/20/21 Unknown Urine Blood Mod (Negative) 04/20/21 Unknown Urine Nitrite Neg (Negative) 04/20/21 Unknown Urine Bilirubin Neg (Negative) 04/20/21 Unknown Urine Urobilinogen < 2.0 mg/dL (<2.0) 04/20/21 Unknown Ur Leukocyte Esterase Neg (Negative) 04/20/21 Unknown Urine WBC (Auto) 3.0 /HPF (0.0-6.0) 04/20/21 Unknown Urine RBC (Auto) 1.0 /HPF (0.0-6.0) 04/20/21 Unknown Urine Mucus Few /HPF 12/29/21 Unknown Urine Osmolality 446 Mosm/kg 04/21/21 08:01 Urine Creatinine 44.3 mg/dL (0.1-20.0) H 04/21/21 08:01 Urine Sodium 71 mmol/L 04/21/21 08:01 Urine Total Protein 12 mg/dL (5-11.8) H 04/21/21 08:01 Plasma/Serum Alcohol < 0.01 % (0-0.07) 04/20/21 17:10 Heparin-induced Plt Ab Negative (Negative) 04/24/21 17:29 UF Heparin High Dose 1 % Release 04/24/21 17:29 EFE UFH Low Dose 0.1 0 % Release 04/24/21 17:29 EFE UFH Low Dose 0.5 0 % Release 04/24/21 17:29 Coronavirus (PCR) Negative (Negative) 04/21/21 Unknown Hepatitis A IgM Ab Non-reactive (NonReactive) 04/27/21 12:49 Hep Bs Antigen Nonreactive (Negative) 04/27/21 12:49 Hep B Core IgM Ab Non-reactive (NonReactive) 04/27/21 12:49 Hepatitis C Antibody Non-reactive (NonReactive) 04/27/21 12:49 Luther/IV: Voiding Method Indwelling Catheter Active Medications - Current Medications Current Medications: Generic Name Dose Route Start Last Admin Trade Name Freq PRN Reason Stop Dose Admin Acetaminophen 650 mg 04/20/21 21:31 04/29/21 03:53 Acetaminophen 325 Mg Tab PO 650 mg Q4H PRN Administration Pain MILD(1-3)/Fever >100.5/TURCIOS Albuterol 2.5 mg 04/22/21 14:49 04/23/21 15:18 Albuterol 2.5 Mg/3 Ml Nebu IH 2.5 mg Q4HRT PRN Administration Shortness Of Breath Lipase/Protease/Amylase 1 each 04/25/21 14:13 Lipase 10,500/Protease 25,000/Amylase 43,750 (Units) Dr Vasquez FEEDTUBE PRN PRN For Clogged Feeding Tube Dextrose 50 ml 04/24/21 11:36 Dextrose 50% In Water (25gm) 50 Ml Syringe IV Q30MIN PRN Hypoglycemia Protocol Famotidine 10 mg 04/27/21 10:00 04/29/21 09:06 Famotidine 10 Mg Tab FEEDTUBE 10 mg BID AZIZA Administration Hydralazine HCl 10 mg 04/24/21 21:22 Hydralazine 20 Mg/1 Ml Inj IV Q4HR PRN elevated BP Hydrophilic Ointment 1 applic 04/26/21 11:16 Lip Therapy Vaseline TP Q2HR PRN Dry Lips NORepinephrine/NS 8 MG-250 ML 8 mg in 250 mls @ 3.75 mls/hr 04/26/21 16:00 04/29/21 01:20 Norepinephrine/Ns 8 Mg-250 Ml (Double Conc) IV 4 mcg/min TITRATE AZIZA 7.5 mls/hr Administration Protocol 2 MCG/MIN Sodium Chloride 100 mls @ 999 mls/hr 04/27/21 10:43 Nacl 0.9% IV MITCH PRN Hypotension Cefepime HCl 2 gm in 100 mls @ 200 mls/hr 04/29/21 22:00 Cefepime/Ns 2 Gm/100 Ml IV Q24H AZIZA Protocol Vancomycin HCl 1,500 mg/ 530 mls @ 333 mls/hr 04/29/21 22:00 Sodium Chloride IV 04/30/21 02:00 ONCE@2200 [facility] Protocol Insulin Human Lispro 0 unit 04/25/21 18:00 04/29/21 01:19 Insulin Lispro 100 Unit/Ml SUB-Q 4 unit Q6HR [facility] Administration Protocol Insulin Human NPH 35 unit 04/29/21 10:00 04/29/21 09:25 Insulin Nph, Human 100 Unit/1 Ml SUB-Q 35 unit Q12HR [facility] Administration Lorazepam 1 mg 04/26/21 11:15 Lorazepam 2 Mg/Ml Vial IV Q4H PRN Sedation Metoclopramide HCl 5 mg 04/20/21 21:31 Metoclopramide 10 Mg/2 Ml Inj IV Q6H PRN Nausea And Vomiting Multi-Ingred Cream/Lotion/Oil/Oint 1 applic 04/26/21 11:16 Mineral Oil/Petrolatum, White Ophth Oint 3.5 Gm OU Q4HR PRN Dry Eye(s) Ondansetron HCl 4 mg 04/20/21 21:31 Ondansetron 4 Mg/2 Ml Inj IV Q8H PRN Nausea And Vomiting Senna/Docusate Sodium 1 tab 04/26/21 22:00 04/29/21 09:05 Sennosides/Docusate Sodium 8.6/50 Mg Tab FEEDTUBE 1 tab BID AZIZA Administration Simple Syrup 15 ml 04/25/21 14:13 Simple Syrup 15 Ml FEEDTUBE PRN PRN Hypoglycemia Simple Syrup 30 ml 04/25/21 14:13 Simple Syrup 15 Ml FEEDTUBE PRN PRN Hypoglycemia Sodium Bicarbonate 325 mg 04/25/21 14:13 04/27/21 13:00 Sodium Bicarbonate 325 Mg Tab FEEDTUBE 325 mg PRN PRN Administration For Clogged Feeding Tube Sodium Bicarbonate 1,300 mg 04/27/21 14:00 04/29/21 09:05 Sodium Bicarbonate 650 Mg Tab PO 1,300 mg TID AZIZA Administration Sodium Chloride 10 ml 04/20/21 22:00 04/29/21 10:06 Sodium Chloride 0.9% 10 Ml Flush Syringe IV 10 ml BID AZIZA Administration Sodium Chloride 10 ml 04/20/21 21:31 Sodium Chloride 0.9% 10 Ml Flush Syringe IV PRN PRN LINE FLUSH Nutrition/Malnutrition Assess - Dietary Evaluation Nutrition/Malnutrition Findings: Nutrition Notes Start: 04/21/21 12:15 Freq: Status: Active Protocol: Document 04/27/21 12:21 JOSE (Rec: 04/27/21 13:30 JOSE [email or web address]) Nutrition Notes Need for Assessment generated from: MD Order Initial or Follow up Reassessment Current Diagnosis Acute Kidney Injury, Hyperlipidemia Other Pertinent Diagnosis Acute metabolic encephalopathy , Dehydration, Hyperosmolar non-ketotic state Current Diet TF-Nepro w/CARBSTEADY @ 27 ml/ hr (since D 04/27). Labs/Tests 04/27: Cl 110.1, CO2 15, BUN 109, Crea 4.3, Glu 218, AST 53 , AlkPhos 148, Tpro 5.2, Alb 1 .2. Pertinent Medications 04/27: Insulin, others nutritionally unremarkable. Height 5 ft 2 in Weight 72.4 kg [place] Body Weight (kg) 50.00 BMI 29.2 Weight change and time frame No body weight change reported . Weight Status Overweight Subjective/Other Information RD comsult for routine F/U on TF tolerance and evaluation of nutritional intake. MD requested change TF to Nepro, according to Progress note. Hypernatremia resolved. Percent of energy/protein needs met: Prescribed TF-Nepro w/ CARBSTEADY @ 27 ml/hr provides for energy/protein needs (1, 389 Kcal/63 g) during LOS, 100 % Kcal; 72% AA. Burn Absent Trauma Absent GI Symptoms None Food Allergy No Skin Integrity/Comment Clear, warm, dry. Current % PO Other Minimum of two criteria No #1 Nutrition Diagnosis Inadequate oral intake Diagnosis Progress(for reassessment Continues documentation) Is patient on ventilator? No Is Patient Ambulatory and/or Out of Bed No REE-([facility]-confined to bed) [phone] Calculation Used for Recommendations [facility] Additional Notes Protein: 1.2-2 g/k-145 g/ day Fluids: 1 ml/kcal, or as per MD. Nutrition Intervention Nutrition Support: Change TF to Mepro w/ CARBSTEADY @ 32 ml/hr. Flush: 140 ml water Q 4 hr, or as per MD. Kcal 1,389 Protein (gm) 63 Carbohydrates (gm) 124 Fat (gm) 74 Fluid (mL) 561 Fiber (gm) 10 % RDI: 100% Kcal; 72% AA. Goal #1 Provide at least 75% of energy /protein needs through Enteral Feeding during LOS. Follow-Up By: 04/29/21 Additional Comments Continue monitoring TF tolerance and BM. <RUPAL VIZCAINO - Last Filed: 04/29/21 18:01> Assessment and Plan Assessment and plan: I saw and evaluated the patient. I agree with the findings and the plan of care as documented in the Nurse Practitioner's~note, with the following corrections and additions. Hospitalist Physical - Constitutional Vitals: Temp Pulse Resp BP Pulse Ox 98.7 F 97 H 27 H 135/68 100 04/29/21 16:00 04/29/21 16:15 04/29/21 16:15 04/29/21 16:15 04/29/21 16:15 HEART Score - HEART Score Troponin: Troponin T 0.021 ng/mL (0.00-0.029) 04/20/21 17:10 Results - Labs CBC & Chem 7: 04/29/21 04:00 04/29/21 04:00 Labs: Laboratory Last Values WBC 13.3 K/mm3 (4.5-11.0) H 04/29/21 04:00 RBC 3.12 M/mm3 (3.65-5.03) L 04/29/21 04:00 Hgb 8.3 gm/dl (10.1-14.3) L 04/29/21 04:00 Hct 26.2 % (30.3-42.9) L 04/29/21 04:00 MCV 84 fl (79-97) 04/29/21 04:00 MCH 27 pg (28-32) L 04/29/21 04:00 MCHC 32 % (30-34) 04/29/21 04:00 RDW 16.3 % (13.2-15.2) H 04/29/21 04:00 Plt Count 132 K/mm3 (140-440) L 04/29/21 04:00 Add Manual Diff Complete 04/28/21 04:00 Total Counted 100 04/28/21 04:00 Seg Neutrophils % Android Software Engineer 04/28/21 04:00 Seg Neuts % (Manual) 77.0 % (40.0-70.0) H 04/26/21 09:33 Band Neutrophils % 2.0 % 04/28/21 04:00 Lymphocytes % (Manual) 1.0 % (13.4-35.0) L 04/28/21 04:00 Reactive Lymphs % (Man) 0 % 04/28/21 04:00 Monocytes % (Manual) 1.0 % (0.0-7.3) 04/28/21 04:00 Eosinophils % (Manual) 3.0 % (0.0-4.3) 04/28/21 04:00 Metamyelocytes % 1.0 % 04/28/21 04:00 Myelocytes % 0 % 04/28/21 04:00 Promyelocytes % 0 % 04/28/21 04:00 Blast Cells % 0 % 04/28/21 04:00 Nucleated RBC % 4.0 % (0.0-0.9) H 04/28/21 04:00 Seg Neutrophils # Man 11.6 K/mm3 (1.8-7.7) H 04/28/21 04:00 Band Neutrophils # 0.3 K/mm3 04/28/21 04:00 Lymphocytes # (Manual) 0.1 K/mm3 (1.2-5.4) L 04/28/21 04:00 Abs React Lymphs (Man) 0.0 K/mm3 04/28/21 04:00 Monocytes # (Manual) 0.1 K/mm3 (0.0-0.8) 04/28/21 04:00 Eosinophils # (Manual) 0.4 K/mm3 (0.0-0.4) 04/28/21 04:00 Basophils # (Manual) 0.0 K/mm3 (0.0-0.1) 04/28/21 04:00 Metamyelocytes # 0.1 K/mm3 04/28/21 04:00 Myelocytes # 0.0 K/mm3 04/28/21 04:00 Promyelocytes # 0.0 K/mm3 04/28/21 04:00 Blast Cells # 0.0 K/mm3 04/28/21 04:00 WBC Morphology Not Reportable 04/28/21 04:00 Hypersegmented Neuts Not Reportable 04/28/21 04:00 Hyposegmented Neuts Not Reportable 04/28/21 04:00 Hypogranular Neuts Not Reportable 04/28/21 04:00 Smudge Cells Not Reportable 04/28/21 04:00 Toxic Granulation Not Reportable 04/28/21 04:00 Toxic Vacuolation Not Reportable 04/28/21 04:00 Dohle Bodies Not Reportable 04/28/21 04:00 Pelger-Huet Anomaly Not Reportable 04/28/21 04:00 Moni Rods Not Reportable 04/28/21 04:00 Platelet Estimate Consistent w auto 04/28/21 04:00 Clumped Platelets Not Reportable 04/28/21 04:00 Plt Clumps, EDTA Not Reportable 04/28/21 04:00 Large Platelets Few 04/28/21 04:00 Giant Platelets Not Reportable 04/28/21 04:00 Platelet Satelliting Not Reportable 04/28/21 04:00 Plt Morphology Comment Not Reportable 04/28/21 04:00 RBC Morphology Not Reportable 04/28/21 04:00 Dimorphic RBCs Not Reportable 04/28/21 04:00 Polychromasia Not Reportable 04/28/21 04:00 Hypochromasia Not Reportable 04/28/21 04:00 Poikilocytosis Not Reportable 04/28/21 04:00 Anisocytosis Not Reportable 04/28/21 04:00 Microcytosis Not Reportable 04/28/21 04:00 Macrocytosis Not Reportable 04/28/21 04:00 Spherocytes Not Reportable 04/28/21 04:00 Pappenheimer Bodies Not Reportable 04/28/21 04:00 Sickle Cells Not Reportable 04/28/21 04:00 Target Cells 1+ 04/28/21 04:00 Tear Drop Cells Not Reportable 04/28/21 04:00 Ovalocytes Not Reportable 04/28/21 04:00 Helmet Cells Not Reportable 04/28/21 04:00 Parkinson-Colby Bodies Not Reportable 04/28/21 04:00 [place] Rings Not Reportable 04/28/21 04:00 [place] Cells Not Reportable 04/28/21 04:00 Bite Cells Not Reportable 04/28/21 04:00 Crenated Cell Not Reportable 04/28/21 04:00 Elliptocytes Not Reportable 04/28/21 04:00 Acanthocytes (Spur) Not Reportable 04/28/21 04:00 Rouleaux Not Reportable 04/28/21 04:00 Hemoglobin C Crystals Not Reportable 04/28/21 04:00 Schistocytes Not Reportable 04/28/21 04:00 Malaria parasites Not Reportable 04/28/21 04:00 Herrera Bodies Not Reportable 04/28/21 04:00 Hem Pathologist Commnt No 04/28/21 04:00 PT 15.3 Sec. (12.2-14.9) H 04/28/21 05:00 INR 1.09 (0.87-1.13) 04/28/21 05:00 APTT 36.6 Sec. (24.2-36.6) 04/28/21 05:00 Heparin Anti-Xa, Unfract Negative (Negative) 04/24/21 17:29 ABG pH 7.438 (7.320-7.450) 04/28/21 05:18 POC ABG pCO2 37.7 mmHg (32.0-48.0) 04/28/21 05:18 ABG pCO2 31.6 mm Hg 04/21/21 15:47 POC ABG pO2 66.5 mmHg (83-108) L 04/28/21 05:18 ABG pO2 168.1 mm Hg (80.0-90.0) H 04/21/21 15:47 POC ABG HCO3 24.9 04/28/21 05:18 ABG HCO3 23.3 mmol/L (20.0-26.0) 04/21/21 15:47 ABG O2 Saturation 93.1 (0-100) 04/28/21 05:18 ABG O2 Content 12.7 (0.0-44) 04/21/21 15:47 POC ABG Base Excess 0.8 04/28/21 05:18 ABG Base Excess 0.3 mmol/L (-2.0-3.0) 04/21/21 15:47 ABG Hemoglobin 9.7 (12.0-17.5) L 04/28/21 05:18 ABG Oxyhemoglobin 92.5 (94-98) L 04/28/21 05:18 ABG Carboxyhemoglobin 1.0 % (0.0-5.0) 04/21/21 15:47 ABG Methemoglobin 0 (0.0-1.5) 04/28/21 05:18 ABG Sodium 140.4 mmol/L (136.0-145.0) 04/28/21 05:18 ABG Potassium 3.2 mmol/L (3.40-4.50) L 04/28/21 05:18 ABG Chloride 104.0 mmol/L (98-107) 04/28/21 05:18 ABG Glucose 200 mg/dL (65-95) H 04/28/21 05:18 VBG pH 7.397 (7.320-7.420) 04/20/21 17:10 Oxyhemoglobin 97.5 % (95.0-99.0) 04/21/21 15:47 Carboxyhemoglobin 0.6 (0.5-1.5) 04/28/21 05:18 FiO2 100 % 04/21/21 15:47 FiO2 % 90.0 04/28/21 05:18 Sodium 139 mmol/L (137-145) D 04/29/21 04:00 Potassium 3.8 mmol/L (3.6-5.0) 04/29/21 04:00 Chloride 99.3 mmol/L (98-107) 04/29/21 04:00 Carbon Dioxide 23 mmol/L (22-30) 04/29/21 04:00 Anion Gap 21 mmol/L 04/29/21 04:00 BUN 63 mg/dL (7-17) H 04/29/21 04:00 Creatinine 3.4 mg/dL (0.6-1.2) H 04/29/21 04:00 Estimated GFR 16 ml/min 04/29/21 04:00 BUN/Creatinine Ratio 19 % 04/29/21 04:00 Glucose 249 mg/dL (65-100) H 04/29/21 04:00 POC Glucose 297 mg/dL (70-105) H 04/29/21 16:01 Hemoglobin A1c 17.1 % (4-6) H 04/22/21 15:55 Lactic Acid 1.90 mmol/L (0.7-2.0) 04/20/21 19:56 Calcium 8.2 mg/dL (8.4-10.2) L 04/29/21 04:00 Phosphorus 4.20 mg/dL (2.5-4.5) 04/29/21 04:00 Magnesium 1.90 mg/dL (1.7-2.3) 04/29/21 04:00 Iron 62 ug/dL (37-170) 04/24/21 17:29 TIBC 285 mcg/dL (250-450) 04/24/21 17:29 % Saturation 21.75 % 04/24/21 17:29 Transferrin 112 mg/dl (192-382) L 04/24/21 17:29 Total Bilirubin 0.30 mg/dL (0.1-1.2) 04/29/21 04:00 Direct Bilirubin < 0.2 mg/dL (0-0.2) 04/29/21 04:00 Indirect Bilirubin 0.1 mg/dL 04/29/21 04:00 AST 61 units/L (5-40) H 04/29/21 04:00 ALT 71 units/L (7-56) H 04/29/21 04:00 Alkaline Phosphatase 170 units/L (35-129) H 04/29/21 04:00 Ammonia 29.0 umol/L (25-60) 04/20/21 17:10 Total Creatine Kinase 1000 units/L (30-135) H 04/27/21 07:43 CK-MB (CK-2) 36.0 ng/mL (0.0-4.0) H 04/20/21 17:10 CK-MB (CK-2) Rel Index 0.9 (0-4) 04/20/21 17:10 Troponin T 0.021 ng/mL (0.00-0.029) 04/20/21 17:10 Serum Total Protein 5.5 g/dL (6.1-8.1) L 04/22/21 08:59 Total Protein 5.1 g/dL (6.3-8.2) L 04/29/21 04:00 Albumin 1.6 g/dL (3.9-5) L 04/29/21 04:00 Albumin/Globulin Ratio 0.5 % 04/29/21 04:00 Hklnz-8-Wgxbupbrx 0.6 g/dL (0.2-0.3) H 04/22/21 08:59 Ucert-3-Jwuifsaci 1.0 g/dL (0.5-0.9) H 04/22/21 08:59 Beta Globulins 0.3 g/dL (0.2-0.5) 04/22/21 08:59 Gamma Globulins 0.6 g/dL (0.8-1.7) L 04/22/21 08:59 Abnorm Protein Band 1 see below 04/22/21 08:59 PEP Interpretation see below H 04/22/21 08:59 TSH 6.040 mlU/mL (0.270-4.200) H 04/20/21 17:10 Free T4 0.93 ng/dL (0.76-1.46) 04/20/21 17:10 Arterial Blood Glucose 200 mg/dL (65-95) H 04/28/21 05:18 Arterial Blood Ionized Calcium 4.5 mg/dL (4.6-5.3) L 04/28/21 05:18 Urine Color Yellow (Yellow) 04/29/21 13:30 Urine Turbidity Turbid (Clear) 04/29/21 13:30 Urine pH 5.0 (5.0-7.0) 04/29/21 13:30 Ur Specific [place] 1.010 (1.003-1.030) 04/29/21 13:30 Urine Protein 100 mg/dl mg/dL (Negative) 04/29/21 13:30 Urine Glucose (UA) 150 mg/dL (Negative) 04/29/21 13:30 Urine Ketones Neg mg/dL (Negative) 04/29/21 13:30 Urine Blood Lg (Negative) 04/29/21 13:30 Urine Nitrite Neg (Negative) 04/29/21 13:30 Urine Bilirubin Neg (Negative) 04/29/21 13:30 Urine Urobilinogen < 2.0 mg/dL (<2.0) 04/29/21 13:30 Ur Leukocyte Esterase Lg (Negative) 04/29/21 13:30 Urine WBC (Auto) > 182.0 /HPF (0.0-6.0) H 04/29/21 13:30 Urine RBC (Auto) > 182.0 /HPF (0.0-6.0) 04/29/21 13:30 U Epithel Cells (Auto) 4.0 /HPF (0-13.0) 04/29/21 13:30 Urine WBC Clumps 3+ /HPF 04/29/21 13:30 Urine Mucus Few /HPF 04/29/21 13:30 Urine Yeast (Budding) 3+ /HPF 04/29/21 13:30 Urine Osmolality 446 Mosm/kg 04/21/21 08:01 Urine Creatinine 44.3 mg/dL (0.1-20.0) H 04/21/21 08:01 Urine Sodium 71 mmol/L 04/21/21 08:01 Urine Total Protein 12 mg/dL (5-11.8) H 04/21/21 08:01 CSF Appearance Clear 04/29/21 11:45 CSF Color Colorless 04/29/21 11:45 CSF WBC 14 /mm3 (1-10) 04/29/21 11:45 CSF RBC 324 /mm3 (0-0) 04/29/21 11:45 CSF Seg Neutrophils 50.0 % (0-6) 04/29/21 11:45 CSF Lymphocytes % 40.0 % (40-80) 04/29/21 11:45 CSF Reactive Lymphs Not Reportable 04/29/21 11:45 CSF Monocytes % 10.0 % (15-45) 04/29/21 11:45 CSF Eosinophils % Not Reportable 04/29/21 11:45 CSF Basophils Not Reportable 04/29/21 11:45 CSF Pathologist Review C 04/29/21 11:45 CSF Glucose 161 mg/dL 04/29/21 11:45 CSF Total Protein 51 mg/dL 04/29/21 11:45 Plasma/Serum Alcohol < 0.01 % (0-0.07) 04/20/21 17:10 Heparin-induced Plt Ab Negative (Negative) 04/24/21 17:29 UF Heparin High Dose 1 % Release 04/24/21 17:29 EFE UFH Low Dose 0.1 0 % Release 04/24/21 17:29 EFE UFH Low Dose 0.5 0 % Release 04/24/21 17:29 Coronavirus (PCR) Negative (Negative) 04/21/21 Unknown Hepatitis A IgM Ab Non-reactive (NonReactive) 04/27/21 12:49 Hep Bs Antigen Nonreactive (Negative) 04/27/21 12:49 Hep B Core IgM Ab Non-reactive (NonReactive) 04/27/21 12:49 Hepatitis C Antibody Non-reactive (NonReactive) 04/27/21 12:49 Microbiology: Microbiology 04/29/21 13:15 Peripheral/Venous Blood Culture - Preliminary Culture in Progress 04/26/21 14:50 Tracheal Aspirate Sputum Culture - Final Luther/IV: Voiding Method Indwelling Catheter Active Medications - Current Medications Current Medications: Generic Name Dose Route Start Last Admin Trade Name Freq PRN Reason Stop Dose Admin Acetaminophen 650 mg 04/20/21 21:31 04/29/21 03:53 Acetaminophen 325 Mg Tab PO 650 mg Q4H PRN Administration Pain MILD(1-3)/Fever >100.5/TURCIOS Albuterol 2.5 mg 04/22/21 14:49 04/23/21 15:18 Albuterol 2.5 Mg/3 Ml Nebu IH 2.5 mg Q4HRT PRN Administration Shortness Of Breath Lipase/Protease/Amylase 1 each 04/25/21 14:13 Lipase 10,500/Protease 25,000/Amylase 43,750 (Units) Dr Vasquez FEEDTUBE PRN PRN For Clogged Feeding Tube Dextrose 50 ml 04/24/21 11:36 Dextrose 50% In Water (25gm) 50 Ml Syringe IV Q30MIN PRN Hypoglycemia Protocol Famotidine 10 mg 04/27/21 10:00 04/29/21 09:06 Famotidine 10 Mg Tab FEEDTUBE 10 mg BID AZIZA Administration Hydralazine HCl 10 mg 04/24/21 21:22 Hydralazine 20 Mg/1 Ml Inj IV Q4HR PRN elevated BP Hydrophilic Ointment 1 applic 04/26/21 11:16 Lip Therapy Vaseline TP Q2HR PRN Dry Lips NORepinephrine/NS 8 MG-250 ML 8 mg in 250 mls @ 3.75 mls/hr 04/26/21 16:00 04/29/21 13:45 Norepinephrine/Ns 8 Mg-250 Ml (Double Conc) IV 4 mcg/min TITRATE AZIZA 7.5 mls/hr Titration Protocol 2 MCG/MIN Sodium Chloride 100 mls @ 999 mls/hr 04/27/21 10:43 Nacl 0.9% IV MITCH PRN Hypotension Cefepime HCl 2 gm in 100 mls @ 200 mls/hr 04/29/21 22:00 Cefepime/Ns 2 Gm/100 Ml IV Q24H AZIZA Protocol Vancomycin HCl 1,500 mg/ 530 mls @ 333 mls/hr 04/29/21 22:00 Sodium Chloride IV 04/30/21 02:00 ONCE@2200 [facility] Protocol Insulin Human Lispro 0 unit 04/25/21 18:00 04/29/21 17:04 Insulin Lispro 100 Unit/Ml SUB-Q 6 unit Q6HR AZIZA Administration Protocol Insulin Human NPH 35 unit 04/29/21 10:00 04/29/21 09:25 Insulin Nph, Human 100 Unit/1 Ml SUB-Q 35 unit Q12HR AZIZA Administration Lorazepam 1 mg 04/26/21 11:15 Lorazepam 2 Mg/Ml Vial IV Q4H PRN Sedation Metoclopramide HCl 5 mg 04/20/21 21:31 Metoclopramide 10 Mg/2 Ml Inj IV Q6H PRN Nausea And Vomiting Multi-Ingred Cream/Lotion/Oil/Oint 1 applic 04/26/21 11:16 Mineral Oil/Petrolatum, White Ophth Oint 3.5 Gm OU Q4HR PRN Dry Eye(s) Ondansetron HCl 4 mg 04/20/21 21:31 Ondansetron 4 Mg/2 Ml Inj IV Q8H PRN Nausea And Vomiting Senna/Docusate Sodium 1 tab 04/26/21 22:00 04/29/21 09:05 Sennosides/Docusate Sodium 8.6/50 Mg Tab FEEDTUBE 1 tab BID AZIZA Administration Simple Syrup 15 ml 04/25/21 14:13 Simple Syrup 15 Ml FEEDTUBE PRN PRN Hypoglycemia Simple Syrup 30 ml 04/25/21 14:13 Simple Syrup 15 Ml FEEDTUBE PRN PRN Hypoglycemia Sodium Bicarbonate 325 mg 04/25/21 14:13 04/27/21 13:00 Sodium Bicarbonate 325 Mg Tab FEEDTUBE 325 mg PRN PRN Administration For Clogged Feeding Tube Sodium Bicarbonate 1,300 mg 04/27/21 14:00 04/29/21 13:56 Sodium Bicarbonate 650 Mg Tab PO 1,300 mg TID AZIZA Administration Sodium Chloride 10 ml 04/20/21 22:00 04/29/21 10:06 Sodium Chloride 0.9% 10 Ml Flush Syringe IV 10 ml BID AZIZA Administration Sodium Chloride 10 ml 04/20/21 21:31 Sodium Chloride 0.9% 10 Ml Flush Syringe IV PRN PRN LINE FLUSH Nutrition/Malnutrition Assess - Dietary Evaluation Nutrition/Malnutrition Findings: Nutrition Notes Start: 04/21/21 12:15 Freq: Status: Active Protocol: Document 04/29/21 14:05 TAMMY (Rec: 04/29/21 14:17 [facility] [id number]) Nutrition Notes Initial or Follow up Reassessment Current Diagnosis Acute Kidney Injury, Respiratory Failure, Hyperlipidemia Other Pertinent Diagnosis Acute metabolic encephalopathy , Dehydration, Hyperosmolar non-ketotic state Current Diet TF-Nepro 27 ml/hr Labs/Tests BUN 63 Cr 3.4 BG 249 Elevated LFTs Pertinent Medications Levophed gtt, Senokot Height 5 ft 2 in Weight 72.4 kg [place] Body Weight (kg) 50.00 BMI 29.2 Weight Status Overweight Subjective/Other Information Pt received first HD on 04/27 and second HD yesterday. No HD needed today, per nephrology. HD needs to be assessed daily. Observed Nepro infusing at 45ml/hr at time of visit (12:29). RN informed of correct TF rate. Pt remains on vent support. Percent of energy/protein needs met: 140% energy 100% pro Burn Absent Trauma Absent #1 Nutrition Diagnosis Inadequate oral intake Diagnosis Progress(for reassessment Continues documentation) Is patient on ventilator? Yes Is Patient Ambulatory and/or Out of Bed No REE-(Rillito-St. Jeor-confined to bed) [phone] Calculation Used for Recommendations Rillito-St Jeor Additional Notes Pro needs >1.2g/kg: >87g/day Fluid needs 1-1.5L/day Nutrition Intervention Nutrition Support: Decrease current TF rate to 32ml/hr and provide 140ml water flush q4h. Kcal 1,382 Protein (gm) 62 Carbohydrates (gm) 124 Fat (gm) 74 Fluid (mL) 558 Fiber (gm) 10 Goal #1 TF tolerance Goal #2 TF to meet at least 75% energy and pro needs Follow-Up By: 05/04/21 Additional Comments F/U: stable TF, vent status, renal function
[2021-04-29] MEDS ORDERED: SODIUM CHLORIDE 0.9% 1000 ML 1,000 ML ONE (11:32)
--- NOTE | 2021-04-29 11:48 | Fluoroscopy Report ---
LUMBAR PUNCTURE INDICATION : Encephalopathy PROCEDURE: The risks (including but not limited to bleeding, infection, and spinal headache) and chip efits were explained to the patient and informed consent was obtained. A time out procedure was perf ormed. The procedure site was prepped and draped in the usual sterile fashion and lidocaine was used for local anesthesia. Under fluoroscopic guidance, a 22-gauge spinal needle was advanced into the L4-5 interlaminar space. The opening pressure was 330 mm H2O which was calculated by adding the length of the needle (9 cm) to the height of the CSF column. 4 separate collection tubes were used to obtain 2 cc of CSF each. Samp les were sent to the lab per the ordering physician specifications for further evaluation. The patient tolerated the procedure well with no complications. IMPRESSION: Successful lumbar puncture as outlined above. Opening pressure was 330 mm H20. Fluoroscopic time: 0.7 Number of fluoroscopic images: 1 Signer Name: Hermilo Hamm Jr, MD Signed: 04/29/2021 11:44 AM Workstation Name: [id number]
--- NOTE | 2021-04-29 11:55 | Progress Note ---
Assessment and Plan 80 y/o female with altered mental state, severe electrolyte imbalance with presumptive acute renal failure and hypothermia. 04/29/21: Will reach out to neuro after 24-48 hours post spinal tap pending any change in mentation. If improvement, may need to consider shunt placement. If not, not sure that there is anything they can offer. if they still want MRI, then can obtain. Now spiking temps. Blood cultures and UA. Given time frame in Hospital will place on Vanc and Cefepime. Guarded prognosis. HD per renal. Given anasarca, will ask renal about trying to remove volume. 04/28/21: Will discuss with renal about HD again today. MRI vs LP (large amount). Coags are ok. Will attempt to get at least one of these done today. Patient is still on 80% but sat is 100. Will ask [facility] about placing ART line today. Wean FiO2 as tolerated. Guarded prognosis. 04/27/21: HD today per renal. Vascath placed and awaiting CXR for conformation of good placement (done and good). Vent weaning as tolerated for sats >88%. ABG in the AM. Will check Coags in the am and hopeful these are stable. Platelets need to above 50K. Would like to do large volume spinal tap to see if this helps with mentation. Will also obtain MRI once oxygen requirement improves. 04/26/21: WIll electively intubate and then obtain MRI. Pending MRI results, will likely order large volume spinal tap to assess if NPH is a factor or not. Guarded prognosis. Electrolytes are improving. 04/25/21: Continue to follow renal recs. Will reach out to POA either today or tomorrow for further updates. Follow up renal recs. Monitor electrolytes and renal function. Guarded prognosis. 1. Neuro-reached out to neuro surgery, placed consult in regards to CT findings 2. Renal-appreciate help and recs, will follow IV hydration recommendations 3. Blood cultures. Urine was negative 4. Jorge Qing for temp Guarded prognosis CCT 31 minutes. Subjective Date of service: 04/29/21 Principal diagnosis: Acute respiratory failure Interval history: Had LP this am. opening pressure was 33cm H20. 24 cc's removed. BP and HR increased. Mental status is about the same. Objective Vital Signs - 12hr 04/29/21 04/29/21 04/29/21 00:00 00:15 00:30 Temperature Pulse Rate 90 90 89 Pulse Rate [ 98 H From Monitor] Pulse Rate [ Left Dorsalis Pedis] Pulse Rate [ Left Radial] Pulse Rate [ Right Dorsalis Pedis] Pulse Rate [ Right Radial] Respiratory 23 20 16 Rate Blood Pressure 90/48 85/39 90/36 O2 Sat by Pulse 98 98 99 Oximetry 04/29/21 04/29/21 04/29/21 00:45 01:00 01:15 Temperature Pulse Rate 86 85 87 Pulse Rate [ From Monitor] Pulse Rate [ Left Dorsalis Pedis] Pulse Rate [ Left Radial] Pulse Rate [ Right Dorsalis Pedis] Pulse Rate [ Right Radial] Respiratory 20 26 H 23 Rate Blood Pressure 89/35 97/38 97/42 O2 Sat by Pulse 99 98 99 Oximetry 04/29/21 04/29/21 04/29/21 01:30 01:45 02:00 Temperature Pulse Rate 91 H 93 H 105 H Pulse Rate [ From Monitor] Pulse Rate [ Left Dorsalis Pedis] Pulse Rate [ Left Radial] Pulse Rate [ Right Dorsalis Pedis] Pulse Rate [ Right Radial] Respiratory 19 19 23 Rate Blood Pressure 109/46 110/49 115/58 O2 Sat by Pulse 99 99 98 Oximetry 04/29/21 04/29/21 04/29/21 02:15 02:30 02:45 Temperature Pulse Rate 106 H 99 H 97 H Pulse Rate [ From Monitor] Pulse Rate [ Left Dorsalis Pedis] Pulse Rate [ Left Radial] Pulse Rate [ Right Dorsalis Pedis] Pulse Rate [ Right Radial] Respiratory 27 H 19 17 Rate Blood Pressure 105/61 116/49 111/48 O2 Sat by Pulse 97 97 99 Oximetry 04/29/21 04/29/21 04/29/21 03:00 03:15 03:28 Temperature Pulse Rate 91 H 103 H 96 H Pulse Rate [ From Monitor] Pulse Rate [ Left Dorsalis Pedis] Pulse Rate [ Left Radial] Pulse Rate [ Right Dorsalis Pedis] Pulse Rate [ Right Radial] Respiratory 26 H 29 H Rate Blood Pressure 97/46 94/53 O2 Sat by Pulse 97 97 96 Oximetry 04/29/21 04/29/21 04/29/21 03:30 03:45 04:00 Temperature 100.7 F H Pulse Rate 100 H 93 H 90 Pulse Rate [ From Monitor] Pulse Rate [ Left Dorsalis Pedis] Pulse Rate [ Left Radial] Pulse Rate [ Right Dorsalis Pedis] Pulse Rate [ Right Radial] Respiratory 17 17 20 Rate Blood Pressure 112/51 107/45 96/43 O2 Sat by Pulse 97 95 96 Oximetry 04/29/21 04/29/21 04/29/21 04:15 04:30 04:45 Temperature Pulse Rate 90 88 88 Pulse Rate [ From Monitor] Pulse Rate [ Left Dorsalis Pedis] Pulse Rate [ Left Radial] Pulse Rate [ Right Dorsalis Pedis] Pulse Rate [ Right Radial] Respiratory 20 19 18 Rate Blood Pressure 94/43 92/43 90/43 O2 Sat by Pulse 96 97 98 Oximetry 04/29/21 04/29/21 04/29/21 05:00 05:15 05:30 Temperature Pulse Rate 96 H 89 98 H Pulse Rate [ From Monitor] Pulse Rate [ Left Dorsalis Pedis] Pulse Rate [ Left Radial] Pulse Rate [ Right Dorsalis Pedis] Pulse Rate [ Right Radial] Respiratory 24 22 20 Rate Blood Pressure 112/58 101/48 103/55 O2 Sat by Pulse 98 98 97 Oximetry 04/29/21 04/29/21 04/29/21 05:45 06:00 06:15 Temperature Pulse Rate 87 84 83 Pulse Rate [ From Monitor] Pulse Rate [ Left Dorsalis Pedis] Pulse Rate [ Left Radial] Pulse Rate [ Right Dorsalis Pedis] Pulse Rate [ Right Radial] Respiratory 22 21 21 Rate Blood Pressure 104/44 118/52 114/45 O2 Sat by Pulse 97 97 97 Oximetry 04/29/21 04/29/21 04/29/21 06:30 06:45 07:00 Temperature Pulse Rate 81 90 82 Pulse Rate [ From Monitor] Pulse Rate [ Left Dorsalis Pedis] Pulse Rate [ Left Radial] Pulse Rate [ Right Dorsalis Pedis] Pulse Rate [ Right Radial] Respiratory 21 22 22 Rate Blood Pressure 115/47 134/54 114/51 O2 Sat by Pulse 98 97 98 Oximetry 04/29/21 04/29/21 04/29/21 07:15 07:31 07:45 Temperature Pulse Rate 86 91 H 97 H Pulse Rate [ From Monitor] Pulse Rate [ Left Dorsalis Pedis] Pulse Rate [ Left Radial] Pulse Rate [ Right Dorsalis Pedis] Pulse Rate [ Right Radial] Respiratory 16 24 24 Rate Blood Pressure 125/56 146/53 137/63 O2 Sat by Pulse 98 97 96 Oximetry 04/29/21 04/29/21 04/29/21 07:49 08:00 08:15 Temperature 100.4 F H Pulse Rate 89 85 Pulse Rate [ 89 From Monitor] Pulse Rate [ 88 Left Dorsalis Pedis] Pulse Rate [ 90 Left Radial] Pulse Rate [ 88 Right Dorsalis Pedis] Pulse Rate [ 90 Right Radial] Respiratory 29 H 20 Rate Blood Pressure 115/62 126/50 O2 Sat by Pulse 96 97 Oximetry 04/29/21 04/29/21 04/29/21 08:30 08:45 08:57 Temperature Pulse Rate 85 88 88 Pulse Rate [ From Monitor] Pulse Rate [ Left Dorsalis Pedis] Pulse Rate [ Left Radial] Pulse Rate [ Right Dorsalis Pedis] Pulse Rate [ Right Radial] Respiratory 24 20 Rate Blood Pressure 139/55 147/58 147/58 O2 Sat by Pulse 98 98 98 Oximetry 04/29/21 11:32 Temperature Pulse Rate 86 Pulse Rate [ From Monitor] Pulse Rate [ Left Dorsalis Pedis] Pulse Rate [ Left Radial] Pulse Rate [ Right Dorsalis Pedis] Pulse Rate [ Right Radial] Respiratory Rate Blood Pressure O2 Sat by Pulse 97 Oximetry Constitutional: other (critically ill, somnolent) Eyes: non-icteric ENT: oropharynx dry Effort: other (tachypneic but not labored) Ascultation: Bilateral: clear Cardiovascular: regular rate and rhythm Gastrointestinal: normoactive bowel sounds, soft, non-tender, non-distended Integumentary: normal Extremities: no cyanosis, no edema, pink and warm Neurologic: unable to assess Psychiatric: other (unable to assess) CBC and BMP: 04/29/21 04:00 04/29/21 04:00 ABG, PT/INR, D-dimer: ABG ABG pH 7.438 (7.320-7.450) 04/28/21 05:18 POC ABG pCO2 37.7 mmHg (32.0-48.0) 04/28/21 05:18 ABG pCO2 31.6 mm Hg 04/21/21 15:47 POC ABG pO2 66.5 mmHg (83-108) L 04/28/21 05:18 ABG pO2 168.1 mm Hg (80.0-90.0) H 04/21/21 15:47 POC ABG HCO3 24.9 04/28/21 05:18 ABG O2 Saturation 93.1 (0-100) 04/28/21 05:18 PT/INR, D-dimer PT 15.3 Sec. (12.2-14.9) H 04/28/21 05:00 INR 1.09 (0.87-1.13) 04/28/21 05:00 Abnormal lab findings: Abnormal Labs 04/20/21 04/20/21 04/20/21 17:10 17:10 17:10 WBC 17.4 H RBC 5.19 H Hgb Hct 46.8 H MCH 27 L RDW 17.2 H Plt Count Seg Neuts % (Manual) 98.0 H Lymphocytes % (Manual) 2.0 L Nucleated RBC % 1.0 H Seg Neutrophils # Man 17.1 H Lymphocytes # (Manual) 0.3 L PT ABG pH POC ABG pO2 ABG pO2 ABG O2 Saturation ABG Base Excess ABG Hemoglobin ABG Oxyhemoglobin ABG Potassium ABG Chloride ABG Glucose Oxyhemoglobin Sodium 173 H* Potassium Chloride 132.9 H Carbon Dioxide 17 L BUN 120 H Creatinine 4.2 H Glucose 762 H* POC Glucose Hemoglobin A1c Lactic Acid Calcium Phosphorus Magnesium 3.80 H Transferrin AST 72 H ALT 63 H Alkaline Phosphatase 148 H Total Creatine Kinase 3697 H CK-MB (CK-2) 36.0 H Serum Total Protein Total Protein Albumin 2.2 L Gbsdm-0-Dcftznxqv Zvtlb-0-Szefwlnue Gamma Globulins PEP Interpretation TSH Arterial Blood Glucose Arterial Blood Ionized Calcium Urine Creatinine Urine Total Protein 04/20/21 04/20/21 04/20/21 17:10 17:10 18:55 WBC RBC Hgb Hct MCH RDW Plt Count Seg Neuts % (Manual) Lymphocytes % (Manual) Nucleated RBC % Seg Neutrophils # Man Lymphocytes # (Manual) PT ABG pH POC ABG pO2 ABG pO2 ABG O2 Saturation ABG Base Excess ABG Hemoglobin ABG Oxyhemoglobin ABG Potassium ABG Chloride ABG Glucose Oxyhemoglobin Sodium Potassium Chloride Carbon Dioxide BUN Creatinine Glucose POC Glucose 574 H Hemoglobin A1c Lactic Acid 2.60 H* Calcium Phosphorus Magnesium Transferrin AST ALT Alkaline Phosphatase Total Creatine Kinase CK-MB (CK-2) Serum Total Protein Total Protein Albumin Yychk-0-Oprdgcwnx Togrx-8-Tqtxwpfjv Gamma Globulins PEP Interpretation TSH 6.040 H Arterial Blood Glucose Arterial Blood Ionized Calcium Urine Creatinine Urine Total Protein 04/20/21 04/20/21 04/21/21 22:58 22:58 00:14 WBC RBC Hgb Hct MCH RDW Plt Count Seg Neuts % (Manual) Lymphocytes % (Manual) Nucleated RBC % Seg Neutrophils # Man Lymphocytes # (Manual) PT ABG pH POC ABG pO2 ABG pO2 ABG O2 Saturation ABG Base Excess ABG Hemoglobin ABG Oxyhemoglobin ABG Potassium ABG Chloride ABG Glucose Oxyhemoglobin Sodium 172 H* Potassium 3.2 L Chloride 134.2 H Carbon Dioxide 17 L BUN 112 H Creatinine 3.8 H Glucose 803 H* POC Glucose > 600 H Hemoglobin A1c Lactic Acid Calcium 8.3 L Phosphorus Magnesium 3.50 H Transferrin AST ALT Alkaline Phosphatase Total Creatine Kinase CK-MB (CK-2) Serum Total Protein Total Protein Albumin Blpka-6-Uqyjkumcr Byrqo-3-Hkjlsladr Gamma Globulins PEP Interpretation TSH Arterial Blood Glucose Arterial Blood Ionized Calcium Urine Creatinine Urine Total Protein 04/21/21 04/21/21 04/21/21 00:22 02:01 03:11 WBC RBC Hgb Hct MCH RDW Plt Count Seg Neuts % (Manual) Lymphocytes % (Manual) Nucleated RBC % Seg Neutrophils # Man Lymphocytes # (Manual) PT ABG pH POC ABG pO2 ABG pO2 ABG O2 Saturation ABG Base Excess ABG Hemoglobin ABG Oxyhemoglobin ABG Potassium ABG Chloride ABG Glucose Oxyhemoglobin Sodium 176 H* 175 H* Potassium 2.9 L* 3.0 L Chloride 139.9 H 136.2 H Carbon Dioxide 17 L 19 L BUN 113 H 112 H Creatinine 3.9 H 3.6 H Glucose 729 H* 582 H* POC Glucose 404 H Hemoglobin A1c Lactic Acid Calcium Phosphorus Magnesium Transferrin AST ALT Alkaline Phosphatase Total Creatine Kinase CK-MB (CK-2) Serum Total Protein Total Protein Albumin Sdzaj-6-Vqjuakzvr Mwgqm-3-Dxpzxcllz Gamma Globulins PEP Interpretation TSH Arterial Blood Glucose Arterial Blood Ionized Calcium Urine Creatinine Urine Total Protein 04/21/21 04/21/21 04/21/21 03:20 03:41 03:41 WBC 14.1 H RBC Hgb Hct MCH 27 L RDW 16.8 H Plt Count 114 L Seg Neuts % (Manual) 97.0 H Lymphocytes % (Manual) 3.0 L Nucleated RBC % 1.0 H Seg Neutrophils # Man 13.7 H Lymphocytes # (Manual) 0.4 L PT ABG pH POC ABG pO2 ABG pO2 52.3 L ABG O2 Saturation 84.5 L ABG Base Excess -2.9 L ABG Hemoglobin ABG Oxyhemoglobin ABG Potassium ABG Chloride ABG Glucose Oxyhemoglobin 82.9 L Sodium 179 H* Potassium 2.9 L* Chloride 138.2 H Carbon Dioxide 20 L BUN 111 H Creatinine 3.7 H Glucose 465 H POC Glucose Hemoglobin A1c Lactic Acid Calcium Phosphorus Magnesium Transferrin AST 73 H ALT 61 H Alkaline Phosphatase 144 H Total Creatine Kinase CK-MB (CK-2) Serum Total Protein Total Protein Albumin 2.5 L Ndwmn-9-Uboqnadzw Rqanv-1-Bzipcqwvk Gamma Globulins PEP Interpretation TSH Arterial Blood Glucose Arterial Blood Ionized Calcium Urine Creatinine Urine Total Protein 04/21/21 04/21/21 04/21/21 04:24 05:45 06:47 WBC RBC Hgb Hct MCH RDW Plt Count Seg Neuts % (Manual) Lymphocytes % (Manual) Nucleated RBC % Seg Neutrophils # Man Lymphocytes # (Manual) PT ABG pH POC ABG pO2 ABG pO2 ABG O2 Saturation ABG Base Excess ABG Hemoglobin ABG Oxyhemoglobin ABG Potassium ABG Chloride ABG Glucose Oxyhemoglobin Sodium Potassium Chloride Carbon Dioxide BUN Creatinine Glucose POC Glucose 353 H 280 H 260 H Hemoglobin A1c Lactic Acid Calcium Phosphorus Magnesium Transferrin AST ALT Alkaline Phosphatase Total Creatine Kinase CK-MB (CK-2) Serum Total Protein Total Protein Albumin Slwmi-4-Hherqqsox Ttzyg-1-Jqvqdktwv Gamma Globulins PEP Interpretation TSH Arterial Blood Glucose Arterial Blood Ionized Calcium Urine Creatinine Urine Total Protein 04/21/21 04/21/21 04/21/21 08:01 11:11 12:51 WBC RBC Hgb Hct MCH RDW Plt Count Seg Neuts % (Manual) Lymphocytes % (Manual) Nucleated RBC % Seg Neutrophils # Man Lymphocytes # (Manual) PT ABG pH POC ABG pO2 ABG pO2 ABG O2 Saturation ABG Base Excess ABG Hemoglobin ABG Oxyhemoglobin ABG Potassium ABG Chloride ABG Glucose Oxyhemoglobin Sodium Potassium Chloride Carbon Dioxide BUN Creatinine Glucose POC Glucose 68 L 146 H Hemoglobin A1c Lactic Acid Calcium Phosphorus Magnesium Transferrin AST ALT Alkaline Phosphatase Total Creatine Kinase CK-MB (CK-2) Serum Total Protein Total Protein Albumin Rlhut-2-Kjozcucvs Fcyld-9-Vqvgmiuzm Gamma Globulins PEP Interpretation TSH Arterial Blood Glucose Arterial Blood Ionized Calcium Urine Creatinine 44.3 H Urine Total Protein 12 H 04/21/21 04/21/21 04/21/21 13:41 14:40 15:47 WBC RBC Hgb Hct MCH RDW Plt Count Seg Neuts % (Manual) Lymphocytes % (Manual) Nucleated RBC % Seg Neutrophils # Man Lymphocytes # (Manual) PT ABG pH 7.275 L 7.486 H POC ABG pO2 63.4 L ABG pO2 168.1 H ABG O2 Saturation 99.1 H ABG Base Excess ABG Hemoglobin 8.4 L 8.9 L ABG Oxyhemoglobin 89.5 L ABG Potassium ABG Chloride 108.0 H ABG Glucose 404 H Oxyhemoglobin Sodium Potassium Chloride Carbon Dioxide BUN Creatinine Glucose POC Glucose 186 H Hemoglobin A1c Lactic Acid Calcium Phosphorus Magnesium Transferrin AST ALT Alkaline Phosphatase Total Creatine Kinase CK-MB (CK-2) Serum Total Protein Total Protein Albumin Lzzez-0-Fxslbucjz Psdax-6-Figuscttc Gamma Globulins PEP Interpretation TSH Arterial Blood Glucose 404 H Arterial Blood Ionized Calcium Urine Creatinine Urine Total Protein 04/21/21 04/21/21 04/21/21 16:25 17:57 18:49 WBC RBC Hgb Hct MCH RDW Plt Count Seg Neuts % (Manual) Lymphocytes % (Manual) Nucleated RBC % Seg Neutrophils # Man Lymphocytes # (Manual) PT ABG pH POC ABG pO2 ABG pO2 ABG O2 Saturation ABG Base Excess ABG Hemoglobin ABG Oxyhemoglobin ABG Potassium ABG Chloride ABG Glucose Oxyhemoglobin Sodium 174 H* Potassium 7.2 H* D Chloride 138.2 H Carbon Dioxide 21 L BUN 99 H Creatinine 4.0 H Glucose 157 H POC Glucose 172 H 143 H Hemoglobin A1c Lactic Acid Calcium Phosphorus Magnesium Transferrin AST 134 H ALT 71 H Alkaline Phosphatase 135 H Total Creatine Kinase 3504 H CK-MB (CK-2) Serum Total Protein Total Protein Albumin 2.2 L Rsnae-5-Zgylxxmuy Isjub-6-Qpzahtdmb Gamma Globulins PEP Interpretation TSH Arterial Blood Glucose Arterial Blood Ionized Calcium Urine Creatinine Urine Total Protein 04/21/21 04/21/21 04/21/21 19:10 20:26 20:53 WBC RBC Hgb Hct MCH RDW Plt Count Seg Neuts % (Manual) Lymphocytes % (Manual) Nucleated RBC % Seg Neutrophils # Man Lymphocytes # (Manual) PT ABG pH POC ABG pO2 ABG pO2 ABG O2 Saturation ABG Base Excess ABG Hemoglobin ABG Oxyhemoglobin ABG Potassium ABG Chloride ABG Glucose Oxyhemoglobin Sodium Potassium Chloride Carbon Dioxide BUN Creatinine Glucose POC Glucose 126 H 190 H 116 H Hemoglobin A1c Lactic Acid Calcium Phosphorus Magnesium Transferrin AST ALT Alkaline Phosphatase Total Creatine Kinase CK-MB (CK-2) Serum Total Protein Total Protein Albumin Tlltm-4-Cabsrbjmi Muhnd-2-Iapbzuomb Gamma Globulins PEP Interpretation TSH Arterial Blood Glucose Arterial Blood Ionized Calcium Urine Creatinine Urine Total Protein 04/21/21 04/21/21 04/21/21 21:52 22:55 23:00 WBC RBC Hgb Hct MCH RDW Plt Count Seg Neuts % (Manual) Lymphocytes % (Manual) Nucleated RBC % Seg Neutrophils # Man Lymphocytes # (Manual) PT ABG pH POC ABG pO2 ABG pO2 ABG O2 Saturation ABG Base Excess ABG Hemoglobin ABG Oxyhemoglobin ABG Potassium ABG Chloride ABG Glucose Oxyhemoglobin Sodium 176 H* Potassium Chloride 140.0 H Carbon Dioxide 20 L BUN 98 H Creatinine 3.9 H Glucose 206 H POC Glucose 135 H 158 H Hemoglobin A1c Lactic Acid Calcium Phosphorus Magnesium Transferrin AST ALT Alkaline Phosphatase Total Creatine Kinase 3240 H CK-MB (CK-2) Serum Total Protein Total Protein Albumin Lhjby-1-Vgydhvejr Ftgjg-3-Zqrijwlmc Gamma Globulins PEP Interpretation TSH Arterial Blood Glucose Arterial Blood Ionized Calcium Urine Creatinine Urine Total Protein 04/22/21 04/22/21 04/22/21 00:01 00:39 00:58 WBC RBC Hgb Hct MCH RDW Plt Count Seg Neuts % (Manual) Lymphocytes % (Manual) Nucleated RBC % Seg Neutrophils # Man Lymphocytes # (Manual) PT ABG pH POC ABG pO2 ABG pO2 ABG O2 Saturation ABG Base Excess ABG Hemoglobin ABG Oxyhemoglobin ABG Potassium ABG Chloride ABG Glucose Oxyhemoglobin Sodium 171 H* Potassium Chloride Carbon Dioxide BUN Creatinine Glucose POC Glucose 182 H 176 H Hemoglobin A1c Lactic Acid Calcium Phosphorus Magnesium Transferrin AST ALT Alkaline Phosphatase Total Creatine Kinase CK-MB (CK-2) Serum Total Protein Total Protein Albumin Drdrm-7-Hpmgznchb Ygqgm-6-Zuajmsmfh Gamma Globulins PEP Interpretation TSH Arterial Blood Glucose Arterial Blood Ionized Calcium Urine Creatinine Urine Total Protein 04/22/21 04/22/21 04/22/21 01:04 04:52 06:07 WBC 11.2 H RBC Hgb Hct 44.3 H MCH 27 L RDW 17.1 H Plt Count 86 L Seg Neuts % (Manual) 86.0 H Lymphocytes % (Manual) 13.0 L Nucleated RBC % Seg Neutrophils # Man 9.6 H Lymphocytes # (Manual) PT ABG pH POC ABG pO2 ABG pO2 ABG O2 Saturation ABG Base Excess ABG Hemoglobin ABG Oxyhemoglobin ABG Potassium ABG Chloride ABG Glucose Oxyhemoglobin Sodium Potassium Chloride Carbon Dioxide BUN Creatinine Glucose POC Glucose 143 H 206 H Hemoglobin A1c Lactic Acid Calcium Phosphorus Magnesium Transferrin AST ALT Alkaline Phosphatase Total Creatine Kinase CK-MB (CK-2) Serum Total Protein Total Protein Albumin Vqgko-0-Dokhawwjf Onijt-7-Bevztngtt Gamma Globulins PEP Interpretation TSH Arterial Blood Glucose Arterial Blood Ionized Calcium Urine Creatinine Urine Total Protein 04/22/21 04/22/21 04/22/21 06:09 07:18 08:59 WBC RBC Hgb Hct MCH RDW Plt Count Seg Neuts % (Manual) Lymphocytes % (Manual) Nucleated RBC % Seg Neutrophils # Man Lymphocytes # (Manual) PT ABG pH POC ABG pO2 ABG pO2 ABG O2 Saturation ABG Base Excess ABG Hemoglobin ABG Oxyhemoglobin ABG Potassium ABG Chloride ABG Glucose Oxyhemoglobin Sodium Potassium Chloride Carbon Dioxide BUN Creatinine Glucose POC Glucose 163 H 158 H Hemoglobin A1c Lactic Acid Calcium Phosphorus Magnesium Transferrin AST ALT Alkaline Phosphatase Total Creatine Kinase 3105 H CK-MB (CK-2) Serum Total Protein Total Protein Albumin Wmxav-2-Wdysxyrlm Vaocr-0-Roealszmn Gamma Globulins PEP Interpretation TSH Arterial Blood Glucose Arterial Blood Ionized Calcium Urine Creatinine Urine Total Protein 04/22/21 04/22/21 04/22/21 08:59 08:59 09:44 WBC RBC Hgb Hct MCH RDW Plt Count Seg Neuts % (Manual) Lymphocytes % (Manual) Nucleated RBC % Seg Neutrophils # Man Lymphocytes # (Manual) PT ABG pH POC ABG pO2 ABG pO2 ABG O2 Saturation ABG Base Excess ABG Hemoglobin ABG Oxyhemoglobin ABG Potassium ABG Chloride ABG Glucose Oxyhemoglobin Sodium 169 H* Potassium 3.5 L Chloride 134.5 H Carbon Dioxide 20 L BUN 95 H Creatinine 3.6 H Glucose 151 H POC Glucose Hemoglobin A1c Lactic Acid Calcium Phosphorus Magnesium 2.80 H Transferrin AST 121 H ALT 75 H Alkaline Phosphatase 137 H Total Creatine Kinase CK-MB (CK-2) Serum Total Protein 5.5 L Total Protein 6.0 L Albumin 2.8 L 2.1 L Xsiur-1-Bpqpjpjbh 0.6 H Rtods-2-Tyxkwfvrt 1.0 H Gamma Globulins 0.6 L PEP Interpretation see below H TSH Arterial Blood Glucose Arterial Blood Ionized Calcium Urine Creatinine Urine Total Protein 04/22/21 04/22/21 04/22/21 10:24 12:20 13:19 WBC RBC Hgb Hct MCH RDW Plt Count Seg Neuts % (Manual) Lymphocytes % (Manual) Nucleated RBC % Seg Neutrophils # Man Lymphocytes # (Manual) PT ABG pH POC ABG pO2 ABG pO2 ABG O2 Saturation ABG Base Excess ABG Hemoglobin ABG Oxyhemoglobin ABG Potassium ABG Chloride ABG Glucose Oxyhemoglobin Sodium Potassium Chloride Carbon Dioxide BUN Creatinine Glucose POC Glucose 107 H 131 H 147 H Hemoglobin A1c Lactic Acid Calcium Phosphorus Magnesium Transferrin AST ALT Alkaline Phosphatase Total Creatine Kinase CK-MB (CK-2) Serum Total Protein Total Protein Albumin Cecbu-2-Vjkuwsbyq Zmgis-7-Lsxalhtjs Gamma Globulins PEP Interpretation TSH Arterial Blood Glucose Arterial Blood Ionized Calcium Urine Creatinine Urine Total Protein 04/22/21 04/22/21 04/22/21 14:16 15:22 15:55 WBC RBC Hgb Hct MCH RDW Plt Count Seg Neuts % (Manual) Lymphocytes % (Manual) Nucleated RBC % Seg Neutrophils # Man Lymphocytes # (Manual) PT ABG pH POC ABG pO2 ABG pO2 ABG O2 Saturation ABG Base Excess ABG Hemoglobin ABG Oxyhemoglobin ABG Potassium ABG Chloride ABG Glucose Oxyhemoglobin Sodium 169 H* Potassium Chloride 133.5 H Carbon Dioxide 19 L BUN 94 H Creatinine 3.8 H Glucose 150 H POC Glucose 154 H 136 H Hemoglobin A1c Lactic Acid Calcium Phosphorus Magnesium Transferrin AST ALT Alkaline Phosphatase Total Creatine Kinase CK-MB (CK-2) Serum Total Protein Total Protein Albumin Yuvyc-6-Qyilxmvwv Molxm-5-Ywueeydmj Gamma Globulins PEP Interpretation TSH Arterial Blood Glucose Arterial Blood Ionized Calcium Urine Creatinine Urine Total Protein 04/22/21 04/22/21 04/22/21 15:55 16:22 18:11 WBC RBC Hgb Hct MCH RDW Plt Count Seg Neuts % (Manual) Lymphocytes % (Manual) Nucleated RBC % Seg Neutrophils # Man Lymphocytes # (Manual) PT ABG pH POC ABG pO2 ABG pO2 ABG O2 Saturation ABG Base Excess ABG Hemoglobin ABG Oxyhemoglobin ABG Potassium ABG Chloride ABG Glucose Oxyhemoglobin Sodium Potassium Chloride Carbon Dioxide BUN Creatinine Glucose POC Glucose 140 H Hemoglobin A1c 17.1 H Lactic Acid Calcium Phosphorus Magnesium Transferrin AST ALT Alkaline Phosphatase Total Creatine Kinase 2497 H CK-MB (CK-2) Serum Total Protein Total Protein Albumin Udebi-1-Dnykbsvwb Lseug-1-Fddjazrtd Gamma Globulins PEP Interpretation TSH Arterial Blood Glucose Arterial Blood Ionized Calcium Urine Creatinine Urine Total Protein 04/22/21 04/22/21 04/23/21 18:26 23:19 00:27 WBC RBC Hgb Hct MCH RDW Plt Count Seg Neuts % (Manual) Lymphocytes % (Manual) Nucleated RBC % Seg Neutrophils # Man Lymphocytes # (Manual) PT ABG pH POC ABG pO2 ABG pO2 ABG O2 Saturation ABG Base Excess ABG Hemoglobin ABG Oxyhemoglobin ABG Potassium ABG Chloride ABG Glucose Oxyhemoglobin Sodium 162 H* Potassium Chloride Carbon Dioxide BUN Creatinine Glucose POC Glucose 146 H 188 H Hemoglobin A1c Lactic Acid Calcium Phosphorus Magnesium Transferrin AST ALT Alkaline Phosphatase Total Creatine Kinase CK-MB (CK-2) Serum Total Protein Total Protein Albumin Eqmbp-2-Colninxhz Blclw-0-Pybdloqxt Gamma Globulins PEP Interpretation TSH Arterial Blood Glucose Arterial Blood Ionized Calcium Urine Creatinine Urine Total Protein 04/23/21 04/23/21 04/23/21 05:23 07:50 08:13 WBC RBC Hgb Hct MCH RDW Plt Count Seg Neuts % (Manual) Lymphocytes % (Manual) Nucleated RBC % Seg Neutrophils # Man Lymphocytes # (Manual) PT ABG pH POC ABG pO2 ABG pO2 ABG O2 Saturation ABG Base Excess ABG Hemoglobin ABG Oxyhemoglobin ABG Potassium ABG Chloride ABG Glucose Oxyhemoglobin Sodium Potassium Chloride Carbon Dioxide BUN Creatinine Glucose POC Glucose 212 H 239 H Hemoglobin A1c Lactic Acid Calcium Phosphorus Magnesium Transferrin AST ALT Alkaline Phosphatase Total Creatine Kinase 1803 H CK-MB (CK-2) Serum Total Protein Total Protein Albumin Aupbs-3-Ehfejkbxf Gmxnc-8-Dhyqaxses Gamma Globulins PEP Interpretation TSH Arterial Blood Glucose Arterial Blood Ionized Calcium Urine Creatinine Urine Total Protein 04/23/21 04/23/21 04/23/21 08:13 08:13 12:06 WBC 11.9 H RBC Hgb Hct MCH 26 L RDW 16.5 H Plt Count 72 L Seg Neuts % (Manual) 80.0 H Lymphocytes % (Manual) 5.0 L Nucleated RBC % Seg Neutrophils # Man 9.5 H Lymphocytes # (Manual) 0.6 L PT ABG pH POC ABG pO2 ABG pO2 ABG O2 Saturation ABG Base Excess ABG Hemoglobin ABG Oxyhemoglobin ABG Potassium ABG Chloride ABG Glucose Oxyhemoglobin Sodium 164 H* Potassium Chloride 128.0 H Carbon Dioxide 21 L BUN 93 H Creatinine 3.8 H Glucose 293 H POC Glucose 311 H Hemoglobin A1c Lactic Acid Calcium Phosphorus Magnesium Transferrin AST 99 H ALT 70 H Alkaline Phosphatase 147 H Total Creatine Kinase CK-MB (CK-2) Serum Total Protein Total Protein 6.1 L Albumin 2.0 L Vtoei-7-Njjavenez Rqrmm-4-Gkkumazxn Gamma Globulins PEP Interpretation TSH Arterial Blood Glucose Arterial Blood Ionized Calcium Urine Creatinine Urine Total Protein 04/23/21 04/23/21 04/24/21 17:35 18:17 02:13 WBC RBC Hgb Hct MCH RDW Plt Count Seg Neuts % (Manual) Lymphocytes % (Manual) Nucleated RBC % Seg Neutrophils # Man Lymphocytes # (Manual) PT ABG pH POC ABG pO2 ABG pO2 ABG O2 Saturation ABG Base Excess ABG Hemoglobin ABG Oxyhemoglobin ABG Potassium ABG Chloride ABG Glucose Oxyhemoglobin Sodium 160 H 160 H Potassium Chloride Carbon Dioxide BUN Creatinine Glucose POC Glucose 370 H Hemoglobin A1c Lactic Acid Calcium Phosphorus Magnesium Transferrin AST ALT Alkaline Phosphatase Total Creatine Kinase CK-MB (CK-2) Serum Total Protein Total Protein Albumin Plagd-3-Hhypdjqwc Zqslk-4-Arbleqizd Gamma Globulins PEP Interpretation TSH Arterial Blood Glucose Arterial Blood Ionized Calcium Urine Creatinine Urine Total Protein 04/24/21 04/24/21 04/24/21 06:00 06:00 07:46 WBC RBC Hgb Hct MCH 27 L RDW 17.0 H Plt Count 58 L Seg Neuts % (Manual) Lymphocytes % (Manual) 2.0 L Nucleated RBC % Seg Neutrophils # Man 8.9 H Lymphocytes # (Manual) 0.2 L PT ABG pH POC ABG pO2 ABG pO2 ABG O2 Saturation ABG Base Excess ABG Hemoglobin ABG Oxyhemoglobin ABG Potassium ABG Chloride ABG Glucose Oxyhemoglobin Sodium Potassium Chloride Carbon Dioxide BUN Creatinine Glucose POC Glucose 395 H Hemoglobin A1c Lactic Acid Calcium Phosphorus Magnesium 2.90 H Transferrin AST ALT Alkaline Phosphatase Total Creatine Kinase CK-MB (CK-2) Serum Total Protein Total Protein Albumin Lazat-9-Wcknnkssn Elttq-9-Qrcerkoeh Gamma Globulins PEP Interpretation TSH Arterial Blood Glucose Arterial Blood Ionized Calcium Urine Creatinine Urine Total Protein 04/24/21 04/24/21 04/24/21 08:15 11:34 13:11 WBC RBC Hgb Hct MCH RDW Plt Count Seg Neuts % (Manual) Lymphocytes % (Manual) Nucleated RBC % Seg Neutrophils # Man Lymphocytes # (Manual) PT ABG pH POC ABG pO2 ABG pO2 ABG O2 Saturation ABG Base Excess ABG Hemoglobin ABG Oxyhemoglobin ABG Potassium ABG Chloride ABG Glucose Oxyhemoglobin Sodium 159 H Potassium Chloride 125.6 H Carbon Dioxide 19 L BUN 94 H Creatinine 3.7 H Glucose 514 H* POC Glucose 422 H 384 H Hemoglobin A1c Lactic Acid Calcium Phosphorus Magnesium Transferrin AST ALT 61 H Alkaline Phosphatase 155 H Total Creatine Kinase CK-MB (CK-2) Serum Total Protein Total Protein 6.1 L Albumin 1.5 L Qewwf-2-Cemwohkac Lynts-4-Mpuywktfv Gamma Globulins PEP Interpretation TSH Arterial Blood Glucose Arterial Blood Ionized Calcium Urine Creatinine Urine Total Protein 04/24/21 04/24/21 04/24/21 14:01 15:03 17:29 WBC RBC Hgb Hct MCH RDW Plt Count Seg Neuts % (Manual) Lymphocytes % (Manual) Nucleated RBC % Seg Neutrophils # Man Lymphocytes # (Manual) PT ABG pH POC ABG pO2 ABG pO2 ABG O2 Saturation ABG Base Excess ABG Hemoglobin ABG Oxyhemoglobin ABG Potassium ABG Chloride ABG Glucose Oxyhemoglobin Sodium Potassium Chloride Carbon Dioxide BUN Creatinine Glucose POC Glucose 423 H 418 H Hemoglobin A1c Lactic Acid Calcium Phosphorus Magnesium Transferrin 112 L AST ALT Alkaline Phosphatase Total Creatine Kinase CK-MB (CK-2) Serum Total Protein Total Protein Albumin Jwtho-5-Szsgmemcd Nhidh-4-Tiaacjpso Gamma Globulins PEP Interpretation TSH Arterial Blood Glucose Arterial Blood Ionized Calcium Urine Creatinine Urine Total Protein 04/24/21 04/24/21 04/24/21 18:28 19:41 22:33 WBC RBC Hgb Hct MCH RDW Plt Count Seg Neuts % (Manual) Lymphocytes % (Manual) Nucleated RBC % Seg Neutrophils # Man Lymphocytes # (Manual) PT ABG pH POC ABG pO2 ABG pO2 ABG O2 Saturation ABG Base Excess ABG Hemoglobin ABG Oxyhemoglobin ABG Potassium ABG Chloride ABG Glucose Oxyhemoglobin Sodium Potassium Chloride Carbon Dioxide BUN Creatinine Glucose POC Glucose 335 H 321 H 349 H Hemoglobin A1c Lactic Acid Calcium Phosphorus Magnesium Transferrin AST ALT Alkaline Phosphatase Total Creatine Kinase CK-MB (CK-2) Serum Total Protein Total Protein Albumin Ryumh-5-Zeahzgsub Hjslf-2-Nighjyjsr Gamma Globulins PEP Interpretation TSH Arterial Blood Glucose Arterial Blood Ionized Calcium Urine Creatinine Urine Total Protein 04/25/21 04/25/21 04/25/21 01:28 02:28 03:25 WBC RBC Hgb Hct MCH RDW Plt Count Seg Neuts % (Manual) Lymphocytes % (Manual) Nucleated RBC % Seg Neutrophils # Man Lymphocytes # (Manual) PT ABG pH POC ABG pO2 ABG pO2 ABG O2 Saturation ABG Base Excess ABG Hemoglobin ABG Oxyhemoglobin ABG Potassium ABG Chloride ABG Glucose Oxyhemoglobin Sodium Potassium Chloride Carbon Dioxide BUN Creatinine Glucose POC Glucose 283 H 247 H 196 H Hemoglobin A1c Lactic Acid Calcium Phosphorus Magnesium Transferrin AST ALT Alkaline Phosphatase Total Creatine Kinase CK-MB (CK-2) Serum Total Protein Total Protein Albumin Glcle-8-Syzhhaofh Noaie-4-Pfpzhthxu Gamma Globulins PEP Interpretation TSH Arterial Blood Glucose Arterial Blood Ionized Calcium Urine Creatinine Urine Total Protein 04/25/21 04/25/21 04/25/21 04:22 05:40 05:45 WBC RBC Hgb Hct MCH 27 L RDW 17.0 H Plt Count 64 L Seg Neuts % (Manual) 84.0 H Lymphocytes % (Manual) 6.0 L Nucleated RBC % 1.0 H Seg Neutrophils # Man Lymphocytes # (Manual) 0.4 L PT ABG pH POC ABG pO2 ABG pO2 ABG O2 Saturation ABG Base Excess ABG Hemoglobin ABG Oxyhemoglobin ABG Potassium ABG Chloride ABG Glucose Oxyhemoglobin Sodium Potassium Chloride Carbon Dioxide BUN Creatinine Glucose POC Glucose 207 H 204 H Hemoglobin A1c Lactic Acid Calcium Phosphorus Magnesium Transferrin AST ALT Alkaline Phosphatase Total Creatine Kinase CK-MB (CK-2) Serum Total Protein Total Protein Albumin Mwtwo-4-Igemwolcw Bqwab-1-Tdhujxpxe Gamma Globulins PEP Interpretation TSH Arterial Blood Glucose Arterial Blood Ionized Calcium Urine Creatinine Urine Total Protein 04/25/21 04/25/21 04/25/21 06:43 07:37 08:11 WBC RBC Hgb Hct MCH RDW Plt Count Seg Neuts % (Manual) Lymphocytes % (Manual) Nucleated RBC % Seg Neutrophils # Man Lymphocytes # (Manual) PT ABG pH POC ABG pO2 ABG pO2 ABG O2 Saturation ABG Base Excess ABG Hemoglobin ABG Oxyhemoglobin ABG Potassium ABG Chloride ABG Glucose Oxyhemoglobin Sodium 148 H D Potassium Chloride 115.7 H Carbon Dioxide 21 L BUN 83 H Creatinine 3.6 H Glucose 247 H POC Glucose 238 H 201 H Hemoglobin A1c Lactic Acid Calcium Phosphorus Magnesium Transferrin AST 63 H ALT 62 H Alkaline Phosphatase 143 H Total Creatine Kinase CK-MB (CK-2) Serum Total Protein Total Protein 5.4 L Albumin 1.4 L Dwxkp-3-Yfebqasem Hyydd-6-Qtjavgilf Gamma Globulins PEP Interpretation TSH Arterial Blood Glucose Arterial Blood Ionized Calcium Urine Creatinine Urine Total Protein 04/25/21 04/25/21 04/25/21 08:11 08:41 09:22 WBC RBC Hgb Hct MCH RDW Plt Count Seg Neuts % (Manual) Lymphocytes % (Manual) Nucleated RBC % Seg Neutrophils # Man Lymphocytes # (Manual) PT ABG pH POC ABG pO2 ABG pO2 ABG O2 Saturation ABG Base Excess ABG Hemoglobin ABG Oxyhemoglobin ABG Potassium ABG Chloride ABG Glucose Oxyhemoglobin Sodium Potassium Chloride Carbon Dioxide BUN Creatinine Glucose POC Glucose 220 H 228 H Hemoglobin A1c Lactic Acid Calcium Phosphorus Magnesium 2.50 H Transferrin AST ALT Alkaline Phosphatase Total Creatine Kinase CK-MB (CK-2) Serum Total Protein Total Protein Albumin Qpfqf-4-Tilplieps Idefv-7-Mrsmpsnhz Gamma Globulins PEP Interpretation TSH Arterial Blood Glucose Arterial Blood Ionized Calcium Urine Creatinine Urine Total Protein 04/25/21 04/25/21 04/25/21 10:31 11:44 12:23 WBC RBC Hgb Hct MCH RDW Plt Count Seg Neuts % (Manual) Lymphocytes % (Manual) Nucleated RBC % Seg Neutrophils # Man Lymphocytes # (Manual) PT ABG pH POC ABG pO2 ABG pO2 ABG O2 Saturation ABG Base Excess ABG Hemoglobin ABG Oxyhemoglobin ABG Potassium ABG Chloride ABG Glucose Oxyhemoglobin Sodium Potassium Chloride Carbon Dioxide BUN Creatinine Glucose POC Glucose 215 H 191 H 229 H Hemoglobin A1c Lactic Acid Calcium Phosphorus Magnesium Transferrin AST ALT Alkaline Phosphatase Total Creatine Kinase CK-MB (CK-2) Serum Total Protein Total Protein Albumin Btbpn-4-Tbdsvfmbm Ilkhi-6-Posuutikd Gamma Globulins PEP Interpretation TSH Arterial Blood Glucose Arterial Blood Ionized Calcium Urine Creatinine Urine Total Protein 04/25/21 04/25/21 04/25/21 13:48 14:11 18:01 WBC RBC Hgb Hct MCH RDW Plt Count Seg Neuts % (Manual) Lymphocytes % (Manual) Nucleated RBC % Seg Neutrophils # Man Lymphocytes # (Manual) PT ABG pH POC ABG pO2 ABG pO2 ABG O2 Saturation ABG Base Excess ABG Hemoglobin ABG Oxyhemoglobin ABG Potassium ABG Chloride ABG Glucose Oxyhemoglobin Sodium Potassium Chloride Carbon Dioxide BUN Creatinine Glucose POC Glucose 177 H 161 H 264 H Hemoglobin A1c Lactic Acid Calcium Phosphorus Magnesium Transferrin AST ALT Alkaline Phosphatase Total Creatine Kinase CK-MB (CK-2) Serum Total Protein Total Protein Albumin Zzkhh-7-Xjrkzwdvl Cymjw-5-Cfehikoph Gamma Globulins PEP Interpretation TSH Arterial Blood Glucose Arterial Blood Ionized Calcium Urine Creatinine Urine Total Protein 04/25/21 04/26/21 04/26/21 21:31 01:19 06:31 WBC RBC Hgb Hct MCH RDW Plt Count Seg Neuts % (Manual) Lymphocytes % (Manual) Nucleated RBC % Seg Neutrophils # Man Lymphocytes # (Manual) PT ABG pH POC ABG pO2 ABG pO2 ABG O2 Saturation ABG Base Excess ABG Hemoglobin ABG Oxyhemoglobin ABG Potassium ABG Chloride ABG Glucose Oxyhemoglobin Sodium Potassium Chloride Carbon Dioxide BUN Creatinine Glucose POC Glucose 371 H 356 H 428 H Hemoglobin A1c Lactic Acid Calcium Phosphorus Magnesium Transferrin AST ALT Alkaline Phosphatase Total Creatine Kinase CK-MB (CK-2) Serum Total Protein Total Protein Albumin Elykw-3-Rnsvdgvrs Mzorl-3-Uekhnbmmp Gamma Globulins PEP Interpretation TSH Arterial Blood Glucose Arterial Blood Ionized Calcium Urine Creatinine Urine Total Protein 04/26/21 04/26/21 04/26/21 09:13 09:33 09:33 WBC RBC Hgb Hct MCH 27 L RDW 16.9 H Plt Count 58 L Seg Neuts % (Manual) 77.0 H Lymphocytes % (Manual) 4.0 L Nucleated RBC % 2.0 H Seg Neutrophils # Man Lymphocytes # (Manual) 0.3 L PT ABG pH POC ABG pO2 ABG pO2 ABG O2 Saturation ABG Base Excess ABG Hemoglobin ABG Oxyhemoglobin ABG Potassium ABG Chloride ABG Glucose Oxyhemoglobin Sodium Potassium Chloride Carbon Dioxide BUN Creatinine Glucose POC Glucose 454 H Hemoglobin A1c Lactic Acid Calcium Phosphorus 5.60 H D Magnesium Transferrin AST ALT Alkaline Phosphatase Total Creatine Kinase CK-MB (CK-2) Serum Total Protein Total Protein Albumin Wynns-4-Mfavaagve Iajho-3-Islitvpsj Gamma Globulins PEP Interpretation TSH Arterial Blood Glucose Arterial Blood Ionized Calcium Urine Creatinine Urine Total Protein 04/26/21 04/26/21 04/26/21 09:33 11:00 12:36 WBC RBC Hgb Hct MCH RDW Plt Count Seg Neuts % (Manual) Lymphocytes % (Manual) Nucleated RBC % Seg Neutrophils # Man Lymphocytes # (Manual) PT ABG pH 7.281 L POC ABG pO2 66.4 L ABG pO2 ABG O2 Saturation ABG Base Excess ABG Hemoglobin 10.9 L ABG Oxyhemoglobin 91 L ABG Potassium ABG Chloride ABG Glucose 521 H Oxyhemoglobin Sodium Potassium Chloride Carbon Dioxide 19 L BUN 98 H Creatinine 3.8 H Glucose 530 H* POC Glucose 414 H Hemoglobin A1c Lactic Acid Calcium 8.1 L Phosphorus Magnesium Transferrin AST 60 H ALT 72 H Alkaline Phosphatase 168 H Total Creatine Kinase CK-MB (CK-2) Serum Total Protein Total Protein 4.6 L Albumin 1.7 L Xxgab-3-Ktgvltilq Wipxz-1-Rymtcykcz Gamma Globulins PEP Interpretation TSH Arterial Blood Glucose 521 H Arterial Blood Ionized Calcium Urine Creatinine Urine Total Protein 04/26/21 04/26/21 04/26/21 15:39 16:18 21:14 WBC RBC Hgb Hct MCH RDW Plt Count Seg Neuts % (Manual) Lymphocytes % (Manual) Nucleated RBC % Seg Neutrophils # Man Lymphocytes # (Manual) PT ABG pH 7.275 L POC ABG pO2 63.4 L ABG pO2 ABG O2 Saturation ABG Base Excess ABG Hemoglobin 8.4 L ABG Oxyhemoglobin 89.5 L ABG Potassium ABG Chloride 108.0 H ABG Glucose 404 H Oxyhemoglobin Sodium Potassium Chloride Carbon Dioxide BUN Creatinine Glucose POC Glucose 324 H 242 H Hemoglobin A1c Lactic Acid Calcium Phosphorus Magnesium Transferrin AST ALT Alkaline Phosphatase Total Creatine Kinase CK-MB (CK-2) Serum Total Protein Total Protein Albumin Gsnvb-5-Betexyxqo Jgfon-3-Qmctxvnjv Gamma Globulins PEP Interpretation TSH Arterial Blood Glucose 404 H Arterial Blood Ionized Calcium Urine Creatinine Urine Total Protein 04/27/21 04/27/21 04/27/21 00:07 05:47 06:23 WBC RBC Hgb Hct MCH RDW Plt Count Seg Neuts % (Manual) Lymphocytes % (Manual) Nucleated RBC % Seg Neutrophils # Man Lymphocytes # (Manual) PT ABG pH POC ABG pO2 ABG pO2 ABG O2 Saturation ABG Base Excess ABG Hemoglobin ABG Oxyhemoglobin ABG Potassium ABG Chloride ABG Glucose Oxyhemoglobin Sodium Potassium Chloride Carbon Dioxide BUN Creatinine Glucose POC Glucose 282 H 214 H 187 H Hemoglobin A1c Lactic Acid Calcium Phosphorus Magnesium Transferrin AST ALT Alkaline Phosphatase Total Creatine Kinase CK-MB (CK-2) Serum Total Protein Total Protein Albumin Ivudl-1-Nlxomqdwi Qohqu-5-Ucxqhiodj Gamma Globulins PEP Interpretation TSH Arterial Blood Glucose Arterial Blood Ionized Calcium Urine Creatinine Urine Total Protein 04/27/21 04/27/21 04/27/21 07:43 08:30 11:54 WBC RBC Hgb Hct MCH RDW Plt Count Seg Neuts % (Manual) Lymphocytes % (Manual) Nucleated RBC % Seg Neutrophils # Man Lymphocytes # (Manual) PT ABG pH 7.309 L POC ABG pO2 70.6 L ABG pO2 ABG O2 Saturation ABG Base Excess ABG Hemoglobin 9.16 L ABG Oxyhemoglobin 92.4 L ABG Potassium ABG Chloride ABG Glucose Oxyhemoglobin Sodium Potassium Chloride 110.1 H Carbon Dioxide 15 L BUN 109 H Creatinine 4.3 H Glucose 218 H POC Glucose 147 H Hemoglobin A1c Lactic Acid Calcium Phosphorus Magnesium Transferrin AST 53 H ALT Alkaline Phosphatase 148 H Total Creatine Kinase 1000 H CK-MB (CK-2) Serum Total Protein Total Protein 5.2 L Albumin 1.2 L Jgluh-9-Aiaksgces Uztiv-0-Xfhflgtue Gamma Globulins PEP Interpretation TSH Arterial Blood Glucose Arterial Blood Ionized Calcium Urine Creatinine Urine Total Protein 04/27/21 04/27/21 04/28/21 21:08 23:28 04:00 WBC 12.6 H RBC 3.59 L Hgb 9.4 L Hct MCH 26 L RDW 16.6 H Plt Count 111 L Seg Neuts % (Manual) Lymphocytes % (Manual) 1.0 L Nucleated RBC % 4.0 H Seg Neutrophils # Man 11.6 H Lymphocytes # (Manual) 0.1 L PT ABG pH POC ABG pO2 ABG pO2 ABG O2 Saturation ABG Base Excess ABG Hemoglobin ABG Oxyhemoglobin ABG Potassium ABG Chloride ABG Glucose Oxyhemoglobin Sodium Potassium Chloride Carbon Dioxide BUN Creatinine Glucose POC Glucose 136 H 201 H Hemoglobin A1c Lactic Acid Calcium Phosphorus Magnesium Transferrin AST ALT Alkaline Phosphatase Total Creatine Kinase CK-MB (CK-2) Serum Total Protein Total Protein Albumin Rzzrp-1-Choqzjshl Scvyp-8-Bymjurcwy Gamma Globulins PEP Interpretation TSH Arterial Blood Glucose Arterial Blood Ionized Calcium Urine Creatinine Urine Total Protein 04/28/21 04/28/21 04/28/21 04:00 05:00 05:08 WBC RBC Hgb Hct MCH RDW Plt Count Seg Neuts % (Manual) Lymphocytes % (Manual) Nucleated RBC % Seg Neutrophils # Man Lymphocytes # (Manual) PT 15.3 H ABG pH POC ABG pO2 ABG pO2 ABG O2 Saturation ABG Base Excess ABG Hemoglobin ABG Oxyhemoglobin ABG Potassium ABG Chloride ABG Glucose Oxyhemoglobin Sodium 147 H Potassium 3.5 L D Chloride Carbon Dioxide BUN 79 H Creatinine 3.8 H Glucose 194 H POC Glucose 183 H Hemoglobin A1c Lactic Acid Calcium 8.1 L Phosphorus Magnesium Transferrin AST ALT Alkaline Phosphatase Total Creatine Kinase CK-MB (CK-2) Serum Total Protein Total Protein Albumin Ryixv-1-Kphcspcqs Madgr-8-Batmxjvyh Gamma Globulins PEP Interpretation TSH Arterial Blood Glucose Arterial Blood Ionized Calcium Urine Creatinine Urine Total Protein 04/28/21 04/28/21 04/28/21 05:18 11:04 17:16 WBC RBC Hgb Hct MCH RDW Plt Count Seg Neuts % (Manual) Lymphocytes % (Manual) Nucleated RBC % Seg Neutrophils # Man Lymphocytes # (Manual) PT ABG pH POC ABG pO2 66.5 L ABG pO2 ABG O2 Saturation ABG Base Excess ABG Hemoglobin 9.7 L ABG Oxyhemoglobin 92.5 L ABG Potassium 3.2 L ABG Chloride ABG Glucose 200 H Oxyhemoglobin Sodium Potassium Chloride Carbon Dioxide BUN Creatinine Glucose POC Glucose 174 H 135 H Hemoglobin A1c Lactic Acid Calcium Phosphorus Magnesium Transferrin AST ALT Alkaline Phosphatase Total Creatine Kinase CK-MB (CK-2) Serum Total Protein Total Protein Albumin Mqdpz-3-Oyyksxumm Sergk-0-Ehmzgpeuw Gamma Globulins PEP Interpretation TSH Arterial Blood Glucose 200 H Arterial Blood Ionized Calcium 4.5 L Urine Creatinine Urine Total Protein 04/28/21 04/28/21 04/29/21 21:14 23:41 01:16 WBC RBC Hgb Hct MCH RDW Plt Count Seg Neuts % (Manual) Lymphocytes % (Manual) Nucleated RBC % Seg Neutrophils # Man Lymphocytes # (Manual) PT ABG pH POC ABG pO2 ABG pO2 ABG O2 Saturation ABG Base Excess ABG Hemoglobin ABG Oxyhemoglobin ABG Potassium ABG Chloride ABG Glucose Oxyhemoglobin Sodium Potassium Chloride Carbon Dioxide BUN Creatinine Glucose POC Glucose 134 H 171 H 236 H Hemoglobin A1c Lactic Acid Calcium Phosphorus Magnesium Transferrin AST ALT Alkaline Phosphatase Total Creatine Kinase CK-MB (CK-2) Serum Total Protein Total Protein Albumin Wcrco-6-Pykqdafld Etlom-5-Ysijgglse Gamma Globulins PEP Interpretation TSH Arterial Blood Glucose Arterial Blood Ionized Calcium Urine Creatinine Urine Total Protein 04/29/21 04/29/21 04/29/21 04:00 04:00 11:35 WBC 13.3 H RBC 3.12 L Hgb 8.3 L Hct 26.2 L MCH 27 L RDW 16.3 H Plt Count 132 L Seg Neuts % (Manual) Lymphocytes % (Manual) Nucleated RBC % Seg Neutrophils # Man Lymphocytes # (Manual) PT ABG pH POC ABG pO2 ABG pO2 ABG O2 Saturation ABG Base Excess ABG Hemoglobin ABG Oxyhemoglobin ABG Potassium ABG Chloride ABG Glucose Oxyhemoglobin Sodium Potassium Chloride Carbon Dioxide BUN 63 H Creatinine 3.4 H Glucose 249 H POC Glucose 320 H Hemoglobin A1c Lactic Acid Calcium 8.2 L Phosphorus Magnesium Transferrin AST 61 H ALT 71 H Alkaline Phosphatase 170 H Total Creatine Kinase CK-MB (CK-2) Serum Total Protein Total Protein 5.1 L Albumin 1.6 L Bngsh-0-Jcjjgsqxj Wrywv-3-Zjtrcybhp Gamma Globulins PEP Interpretation TSH Arterial Blood Glucose Arterial Blood Ionized Calcium Urine Creatinine Urine Total Protein
[2021-04-29 12:42] LABS: Glucose,CSF 161 mg/dL
[2021-04-29 13:03] LABS: Appearance,CSF Clear; Red Blood Cell,CSF 324 /mm3 (0-0); Total Cells Counted 10 /mm3; White Blood Cell,CSF 14 /mm3 (1-10)
--- NOTE | 2021-04-29 13:55 | Procedure Note ---
Date of procedure: 04/29/21 Pre-op diagnosis: Acute Renal Failure Post-op diagnosis: same Procedure: Right Radial Arterial Line Placement Patient was evaluated and required arterial line placement for Hemodynanic monitoring on pressors Informed consent was obtained from patient's POAHarjinder A time-out was completed verifying correct patient, procedure, site, and positioning. Hand hygiene were performed immediately prior to the procedure and sterile technique was used throughout the procedure. After an Antwon test was performed to ensure adequate perfusion, the vessel was identify using an ultrasound machine, the right wrist was then prepped using chlorhexidine scrub and draped in sterile fashion using a three quarter sheet drape. The radial artery was then again identified and the wrist was positioned in the usual fashion. Anesthesia was achieved using 1% lidocaine. Utilizing the Seldinger technique, a finder needle was inserted into the radial artery under ultrasound guidance, pulsating arterial blood return was obtained, then a guidewire was advanced easily into the radial artery. The catheter was then advanced over the wire and the needle and wire were withdrawn. The catheter was then connected to the monitoring tech and zeroed, appropriate waveform and blood pressure tracing was observed on the monitor. The catheter was sutured in place, a Biopatch was placed at the insertion site and covered with a sterile dressing. The patient tolerated the procedure well and no complications noted. Total Time Spent with Patient (Minutes): 40 minutes Anesthesia: local Surgeon: LISA CLIFTON Estimated blood loss: minimal Condition: critical Disposition: ICU
[2021-04-29 14:34] LABS: Bilirubin,Urine NEG (Negative); Blood,Urine LG (Negative); Color,Urine Yellow (Yellow); Mucus,Urine FEW /HPF; Urobilinogen,Urine < 2.0 mg/dL (<2.0)
[2021-04-29 14:35] LABS: RBC,Urine > 182.0 /HPF (0.0-6.0); WBC,Urine > 182.0 /HPF (0.0-6.0)
[2021-04-29] MEDS: LORazepam 2 MG/ML VIAL IV PRN (20:23)
[2021-04-29] MEDS: CEFEPIME/NS 2 GM/100 ML 2 GM/100 ML BAG IV SCH (21:50)
[2021-04-29] MEDS ORDERED: VANCOMYCIN 1,500 MG in SODIUM CHLORIDE 0.9% 500 ML 500 ML IV SCH (22:00)
[2021-04-30] MEDS: INSULIN LISPRO 100 UNIT/ML SUB-Q SCH ×4 (01:04→18:10)
[2021-04-30] MEDS: FREE WATER PO SCH ×2 (02:05→06:10)
[2021-04-30] MEDS: LORazepam 2 MG/ML VIAL IV PRN ×3 (02:50→23:00)
[2021-04-30 05:15] LABS: Hematocrit 27.5 % (30.3-42.9); Hemoglobin 8.7 gm/dl (10.1-14.3); Mean Corpuscular HGB Conc 32 % (30-34); Mean Corpuscular Volume 84 fl (79-97); Platelet Count 165 K/mm3 (140-440); Red Blood Count 3.27 M/mm3 (3.65-5.03); Red Cell Distribution Width 16.6 % (13.2-15.2)
[2021-04-30 05:29] LABS: Calcium 8.6 mg/dL (8.4-10.2)
--- NOTE | 2021-04-30 06:33 | XRay Report ---
CHEST - 1 VIEW INDICATION: follow up respiratory failure COMPARISON: Yesterday FINDINGS: SUPPORT DEVICES: Stable support device positioning. HEART: Stable cardiomediastinal silhouette. LUNGS/PLEURA: Persistent moderate patchy multifocal airspace disease in the lungs. ADDITIONAL FINDINGS: None. IMPRESSION: Unchanged exam. Signer Name: Jin Harris MD Signed: 04/30/2021 6:29 AM Workstation Name: [id number]
[2021-04-30] MEDS: NORepinephrine/NS 8 MG-250 ML 8 MG/250 ML INFUS..BTL IV SCH (07:09)
[2021-04-30] MEDS: SODIUM BICARBONATE 650 MG TAB PO SCH ×3 (08:28→20:17)
[2021-04-30] MEDS ORDERED: POTASSIUM CHLORIDE 20 MEQ PACKET FEEDTUBE NR (09:30)
--- NOTE | 2021-04-30 09:40 | Progress Note ---
Assessment and Plan - Patient Problems (1) Aspiration into airway Current Visit: Yes Status: Acute (2) Hydrocephalus Current Visit: Yes Status: Acute (3) SYED (acute kidney injury) Current Visit: Yes Status: Acute (4) Acute metabolic encephalopathy Current Visit: Yes Status: Acute (5) Acute renal failure Current Visit: Yes Status: Acute (6) Dehydration Current Visit: Yes Status: Acute (7) GERD (gastroesophageal reflux disease) Current Visit: Yes Status: Chronic Qualifiers: Esophagitis presence: without esophagitis Qualified Code(s): K21.9 - Gastro-esophageal reflux disease without esophagitis Subjective Principal diagnosis: Acute respiratory failure Interval history: pt on vent still minimally responsive Objective Vital Signs - 12hr 04/29/21 04/29/21 04/29/21 21:45 22:00 22:15 Temperature Pulse Rate 78 78 78 Pulse Rate [ From Monitor] Respiratory 16 17 18 Rate Blood Pressure 144/59 138/54 138/54 O2 Sat by Pulse 100 99 100 Oximetry 04/29/21 04/29/21 04/29/21 22:31 22:45 23:00 Temperature Pulse Rate 78 82 76 Pulse Rate [ From Monitor] Respiratory 17 21 18 Rate Blood Pressure 138/54 138/54 140/56 O2 Sat by Pulse 99 97 99 Oximetry 04/29/21 04/29/21 04/29/21 23:15 23:31 23:45 Temperature Pulse Rate 73 74 74 Pulse Rate [ From Monitor] Respiratory 19 18 18 Rate Blood Pressure 140/56 140/56 140/56 O2 Sat by Pulse 100 100 100 Oximetry 04/30/21 04/30/21 04/30/21 00:00 00:01 00:15 Temperature 97.4 F L Pulse Rate 79 81 74 Pulse Rate [ 103 H From Monitor] Respiratory 21 17 17 Rate Blood Pressure 159/60 159/60 O2 Sat by Pulse 96 100 99 Oximetry 04/30/21 04/30/21 04/30/21 00:31 00:35 00:45 Temperature Pulse Rate 71 70 73 Pulse Rate [ From Monitor] Respiratory 18 18 Rate Blood Pressure 159/60 159/60 159/60 O2 Sat by Pulse 99 99 96 Oximetry 04/30/21 04/30/21 04/30/21 01:00 01:15 01:31 Temperature Pulse Rate 75 77 80 Pulse Rate [ From Monitor] Respiratory 19 20 20 Rate Blood Pressure 162/60 162/60 162/60 O2 Sat by Pulse 97 96 98 Oximetry 04/30/21 04/30/21 04/30/21 01:46 02:00 02:16 Temperature Pulse Rate 86 82 85 Pulse Rate [ From Monitor] Respiratory 31 H 19 19 Rate Blood Pressure 162/60 141/52 141/52 O2 Sat by Pulse 97 98 100 Oximetry 04/30/21 04/30/21 04/30/21 02:30 02:46 03:00 Temperature Pulse Rate 95 H 95 H 84 Pulse Rate [ From Monitor] Respiratory 20 29 H 18 Rate Blood Pressure 141/52 141/52 140/55 O2 Sat by Pulse 94 96 98 Oximetry 04/30/21 04/30/21 04/30/21 03:16 03:30 03:46 Temperature Pulse Rate 92 H 92 H 90 Pulse Rate [ From Monitor] Respiratory 23 27 H 23 Rate Blood Pressure 140/55 140/55 140/55 O2 Sat by Pulse 100 100 100 Oximetry 04/30/21 04/30/21 04/30/21 04:00 04:16 04:30 Temperature 97.7 F Pulse Rate 87 87 86 Pulse Rate [ 103 H From Monitor] Respiratory 24 26 H 24 Rate Blood Pressure 134/55 112/51 112/51 O2 Sat by Pulse 100 99 95 Oximetry 04/30/21 04/30/21 04/30/21 04:40 04:46 05:00 Temperature Pulse Rate 78 81 80 Pulse Rate [ From Monitor] Respiratory 25 H 24 Rate Blood Pressure 136/58 112/51 136/58 O2 Sat by Pulse 97 94 97 Oximetry 04/30/21 04/30/21 04/30/21 05:15 05:30 05:45 Temperature Pulse Rate 78 78 76 Pulse Rate [ From Monitor] Respiratory 23 22 19 Rate Blood Pressure 125/52 141/59 147/60 O2 Sat by Pulse 97 99 100 Oximetry 04/30/21 04/30/21 06:00 08:00 Temperature 97.4 F L Pulse Rate 77 81 Pulse Rate [ From Monitor] Respiratory 18 Rate Blood Pressure 124/54 118/55 O2 Sat by Pulse 100 100 Oximetry Constitutional: other (critically ill, somnolent) Eyes: non-icteric ENT: oropharynx dry Effort: other (tachypneic but not labored) Ascultation: Bilateral: clear Cardiovascular: regular rate and rhythm Gastrointestinal: normoactive bowel sounds, soft, non-tender, non-distended Integumentary: normal Extremities: no cyanosis, no edema, pink and warm Neurologic: unable to assess Psychiatric: other (unable to assess) CBC and BMP: 04/30/21 04:00 04/30/21 04:00 ABG, PT/INR, D-dimer: ABG ABG pH 7.452 (7.320-7.450) H 04/30/21 05:31 POC ABG pCO2 30.5 mmHg (32.0-48.0) L 04/30/21 05:31 ABG pCO2 31.6 mm Hg 04/21/21 15:47 POC ABG pO2 54.5 mmHg (83-108) L 04/30/21 05:31 ABG pO2 168.1 mm Hg (80.0-90.0) H 04/21/21 15:47 POC ABG HCO3 20.8 04/30/21 05:31 ABG O2 Saturation 88.1 (0-100) 04/30/21 05:31 PT/INR, D-dimer PT 15.3 Sec. (12.2-14.9) H 04/28/21 05:00 INR 1.09 (0.87-1.13) 04/28/21 05:00 Abnormal lab findings: Abnormal Labs 04/20/21 04/20/21 04/20/21 17:10 17:10 17:10 WBC 17.4 H RBC 5.19 H Hgb Hct 46.8 H MCH 27 L RDW 17.2 H Plt Count Seg Neuts % (Manual) 98.0 H Lymphocytes % (Manual) 2.0 L Nucleated RBC % 1.0 H Seg Neutrophils # Man 17.1 H Lymphocytes # (Manual) 0.3 L PT ABG pH POC ABG pCO2 POC ABG pO2 ABG pO2 ABG O2 Saturation ABG Base Excess ABG Hemoglobin ABG Oxyhemoglobin ABG Potassium ABG Chloride ABG Glucose Oxyhemoglobin Sodium 173 H* Potassium Chloride 132.9 H Carbon Dioxide 17 L BUN 120 H Creatinine 4.2 H Glucose 762 H* POC Glucose Hemoglobin A1c Lactic Acid Calcium Phosphorus Magnesium 3.80 H Transferrin AST 72 H ALT 63 H Alkaline Phosphatase 148 H Total Creatine Kinase 3697 H CK-MB (CK-2) 36.0 H Serum Total Protein Total Protein Albumin 2.2 L Ylmsa-5-Fzbmlhyae Tsiig-2-Gxexfansc Gamma Globulins PEP Interpretation TSH Arterial Blood Glucose Arterial Blood Ionized Calcium Urine WBC (Auto) Urine Creatinine Urine Total Protein 04/20/21 04/20/21 04/20/21 17:10 17:10 18:55 WBC RBC Hgb Hct MCH RDW Plt Count Seg Neuts % (Manual) Lymphocytes % (Manual) Nucleated RBC % Seg Neutrophils # Man Lymphocytes # (Manual) PT ABG pH POC ABG pCO2 POC ABG pO2 ABG pO2 ABG O2 Saturation ABG Base Excess ABG Hemoglobin ABG Oxyhemoglobin ABG Potassium ABG Chloride ABG Glucose Oxyhemoglobin Sodium Potassium Chloride Carbon Dioxide BUN Creatinine Glucose POC Glucose 574 H Hemoglobin A1c Lactic Acid 2.60 H* Calcium Phosphorus Magnesium Transferrin AST ALT Alkaline Phosphatase Total Creatine Kinase CK-MB (CK-2) Serum Total Protein Total Protein Albumin Nxrks-8-Eixgtdiai Pdixx-1-Zbbmfubuw Gamma Globulins PEP Interpretation TSH 6.040 H Arterial Blood Glucose Arterial Blood Ionized Calcium Urine WBC (Auto) Urine Creatinine Urine Total Protein 04/20/21 04/20/21 04/21/21 22:58 22:58 00:14 WBC RBC Hgb Hct MCH RDW Plt Count Seg Neuts % (Manual) Lymphocytes % (Manual) Nucleated RBC % Seg Neutrophils # Man Lymphocytes # (Manual) PT ABG pH POC ABG pCO2 POC ABG pO2 ABG pO2 ABG O2 Saturation ABG Base Excess ABG Hemoglobin ABG Oxyhemoglobin ABG Potassium ABG Chloride ABG Glucose Oxyhemoglobin Sodium 172 H* Potassium 3.2 L Chloride 134.2 H Carbon Dioxide 17 L BUN 112 H Creatinine 3.8 H Glucose 803 H* POC Glucose > 600 H Hemoglobin A1c Lactic Acid Calcium 8.3 L Phosphorus Magnesium 3.50 H Transferrin AST ALT Alkaline Phosphatase Total Creatine Kinase CK-MB (CK-2) Serum Total Protein Total Protein Albumin Byknf-2-Qnmjvsprc Zdqve-6-Lpcspfluf Gamma Globulins PEP Interpretation TSH Arterial Blood Glucose Arterial Blood Ionized Calcium Urine WBC (Auto) Urine Creatinine Urine Total Protein 04/21/21 04/21/21 04/21/21 00:22 02:01 03:11 WBC RBC Hgb Hct MCH RDW Plt Count Seg Neuts % (Manual) Lymphocytes % (Manual) Nucleated RBC % Seg Neutrophils # Man Lymphocytes # (Manual) PT ABG pH POC ABG pCO2 POC ABG pO2 ABG pO2 ABG O2 Saturation ABG Base Excess ABG Hemoglobin ABG Oxyhemoglobin ABG Potassium ABG Chloride ABG Glucose Oxyhemoglobin Sodium 176 H* 175 H* Potassium 2.9 L* 3.0 L Chloride 139.9 H 136.2 H Carbon Dioxide 17 L 19 L BUN 113 H 112 H Creatinine 3.9 H 3.6 H Glucose 729 H* 582 H* POC Glucose 404 H Hemoglobin A1c Lactic Acid Calcium Phosphorus Magnesium Transferrin AST ALT Alkaline Phosphatase Total Creatine Kinase CK-MB (CK-2) Serum Total Protein Total Protein Albumin Qnpfw-2-Qehonjwsu Zdicu-6-Iczbmsaya Gamma Globulins PEP Interpretation TSH Arterial Blood Glucose Arterial Blood Ionized Calcium Urine WBC (Auto) Urine Creatinine Urine Total Protein 04/21/21 04/21/21 04/21/21 03:20 03:41 03:41 WBC 14.1 H RBC Hgb Hct MCH 27 L RDW 16.8 H Plt Count 114 L Seg Neuts % (Manual) 97.0 H Lymphocytes % (Manual) 3.0 L Nucleated RBC % 1.0 H Seg Neutrophils # Man 13.7 H Lymphocytes # (Manual) 0.4 L PT ABG pH POC ABG pCO2 POC ABG pO2 ABG pO2 52.3 L ABG O2 Saturation 84.5 L ABG Base Excess -2.9 L ABG Hemoglobin ABG Oxyhemoglobin ABG Potassium ABG Chloride ABG Glucose Oxyhemoglobin 82.9 L Sodium 179 H* Potassium 2.9 L* Chloride 138.2 H Carbon Dioxide 20 L BUN 111 H Creatinine 3.7 H Glucose 465 H POC Glucose Hemoglobin A1c Lactic Acid Calcium Phosphorus Magnesium Transferrin AST 73 H ALT 61 H Alkaline Phosphatase 144 H Total Creatine Kinase CK-MB (CK-2) Serum Total Protein Total Protein Albumin 2.5 L Onjmr-7-Fiomambtq Dxtid-9-Xtfbbggwv Gamma Globulins PEP Interpretation TSH Arterial Blood Glucose Arterial Blood Ionized Calcium Urine WBC (Auto) Urine Creatinine Urine Total Protein 04/21/21 04/21/21 04/21/21 04:24 05:45 06:47 WBC RBC Hgb Hct MCH RDW Plt Count Seg Neuts % (Manual) Lymphocytes % (Manual) Nucleated RBC % Seg Neutrophils # Man Lymphocytes # (Manual) PT ABG pH POC ABG pCO2 POC ABG pO2 ABG pO2 ABG O2 Saturation ABG Base Excess ABG Hemoglobin ABG Oxyhemoglobin ABG Potassium ABG Chloride ABG Glucose Oxyhemoglobin Sodium Potassium Chloride Carbon Dioxide BUN Creatinine Glucose POC Glucose 353 H 280 H 260 H Hemoglobin A1c Lactic Acid Calcium Phosphorus Magnesium Transferrin AST ALT Alkaline Phosphatase Total Creatine Kinase CK-MB (CK-2) Serum Total Protein Total Protein Albumin Eiclp-5-Rpcyuazdp Blcql-6-Iipagases Gamma Globulins PEP Interpretation TSH Arterial Blood Glucose Arterial Blood Ionized Calcium Urine WBC (Auto) Urine Creatinine Urine Total Protein 04/21/21 04/21/21 04/21/21 08:01 11:11 12:51 WBC RBC Hgb Hct MCH RDW Plt Count Seg Neuts % (Manual) Lymphocytes % (Manual) Nucleated RBC % Seg Neutrophils # Man Lymphocytes # (Manual) PT ABG pH POC ABG pCO2 POC ABG pO2 ABG pO2 ABG O2 Saturation ABG Base Excess ABG Hemoglobin ABG Oxyhemoglobin ABG Potassium ABG Chloride ABG Glucose Oxyhemoglobin Sodium Potassium Chloride Carbon Dioxide BUN Creatinine Glucose POC Glucose 68 L 146 H Hemoglobin A1c Lactic Acid Calcium Phosphorus Magnesium Transferrin AST ALT Alkaline Phosphatase Total Creatine Kinase CK-MB (CK-2) Serum Total Protein Total Protein Albumin Xbtiq-4-Wdizlzvnu Rgkfs-6-Cjqddvbkc Gamma Globulins PEP Interpretation TSH Arterial Blood Glucose Arterial Blood Ionized Calcium Urine WBC (Auto) Urine Creatinine 44.3 H Urine Total Protein 12 H 04/21/21 04/21/21 04/21/21 13:41 14:40 15:47 WBC RBC Hgb Hct MCH RDW Plt Count Seg Neuts % (Manual) Lymphocytes % (Manual) Nucleated RBC % Seg Neutrophils # Man Lymphocytes # (Manual) PT ABG pH 7.275 L 7.486 H POC ABG pCO2 POC ABG pO2 63.4 L ABG pO2 168.1 H ABG O2 Saturation 99.1 H ABG Base Excess ABG Hemoglobin 8.4 L 8.9 L ABG Oxyhemoglobin 89.5 L ABG Potassium ABG Chloride 108.0 H ABG Glucose 404 H Oxyhemoglobin Sodium Potassium Chloride Carbon Dioxide BUN Creatinine Glucose POC Glucose 186 H Hemoglobin A1c Lactic Acid Calcium Phosphorus Magnesium Transferrin AST ALT Alkaline Phosphatase Total Creatine Kinase CK-MB (CK-2) Serum Total Protein Total Protein Albumin Ucrgs-2-Mhenqbbhd Msnac-7-Gdhqlqjvk Gamma Globulins PEP Interpretation TSH Arterial Blood Glucose 404 H Arterial Blood Ionized Calcium Urine WBC (Auto) Urine Creatinine Urine Total Protein 04/21/21 04/21/21 04/21/21 16:25 17:57 18:49 WBC RBC Hgb Hct MCH RDW Plt Count Seg Neuts % (Manual) Lymphocytes % (Manual) Nucleated RBC % Seg Neutrophils # Man Lymphocytes # (Manual) PT ABG pH POC ABG pCO2 POC ABG pO2 ABG pO2 ABG O2 Saturation ABG Base Excess ABG Hemoglobin ABG Oxyhemoglobin ABG Potassium ABG Chloride ABG Glucose Oxyhemoglobin Sodium 174 H* Potassium 7.2 H* D Chloride 138.2 H Carbon Dioxide 21 L BUN 99 H Creatinine 4.0 H Glucose 157 H POC Glucose 172 H 143 H Hemoglobin A1c Lactic Acid Calcium Phosphorus Magnesium Transferrin AST 134 H ALT 71 H Alkaline Phosphatase 135 H Total Creatine Kinase 3504 H CK-MB (CK-2) Serum Total Protein Total Protein Albumin 2.2 L Jinhr-1-Lbvrvhokn Pbddq-9-Zgwbitcty Gamma Globulins PEP Interpretation TSH Arterial Blood Glucose Arterial Blood Ionized Calcium Urine WBC (Auto) Urine Creatinine Urine Total Protein 04/21/21 04/21/21 04/21/21 19:10 20:26 20:53 WBC RBC Hgb Hct MCH RDW Plt Count Seg Neuts % (Manual) Lymphocytes % (Manual) Nucleated RBC % Seg Neutrophils # Man Lymphocytes # (Manual) PT ABG pH POC ABG pCO2 POC ABG pO2 ABG pO2 ABG O2 Saturation ABG Base Excess ABG Hemoglobin ABG Oxyhemoglobin ABG Potassium ABG Chloride ABG Glucose Oxyhemoglobin Sodium Potassium Chloride Carbon Dioxide BUN Creatinine Glucose POC Glucose 126 H 190 H 116 H Hemoglobin A1c Lactic Acid Calcium Phosphorus Magnesium Transferrin AST ALT Alkaline Phosphatase Total Creatine Kinase CK-MB (CK-2) Serum Total Protein Total Protein Albumin Awdmz-3-Cnvkpyllq Cbgtd-3-Ducqilvhq Gamma Globulins PEP Interpretation TSH Arterial Blood Glucose Arterial Blood Ionized Calcium Urine WBC (Auto) Urine Creatinine Urine Total Protein 04/21/21 04/21/21 04/21/21 21:52 22:55 23:00 WBC RBC Hgb Hct MCH RDW Plt Count Seg Neuts % (Manual) Lymphocytes % (Manual) Nucleated RBC % Seg Neutrophils # Man Lymphocytes # (Manual) PT ABG pH POC ABG pCO2 POC ABG pO2 ABG pO2 ABG O2 Saturation ABG Base Excess ABG Hemoglobin ABG Oxyhemoglobin ABG Potassium ABG Chloride ABG Glucose Oxyhemoglobin Sodium 176 H* Potassium Chloride 140.0 H Carbon Dioxide 20 L BUN 98 H Creatinine 3.9 H Glucose 206 H POC Glucose 135 H 158 H Hemoglobin A1c Lactic Acid Calcium Phosphorus Magnesium Transferrin AST ALT Alkaline Phosphatase Total Creatine Kinase 3240 H CK-MB (CK-2) Serum Total Protein Total Protein Albumin Ptysg-8-Beqscsqwb Eeyub-2-Vjduzclft Gamma Globulins PEP Interpretation TSH Arterial Blood Glucose Arterial Blood Ionized Calcium Urine WBC (Auto) Urine Creatinine Urine Total Protein 04/22/21 04/22/21 04/22/21 00:01 00:39 00:58 WBC RBC Hgb Hct MCH RDW Plt Count Seg Neuts % (Manual) Lymphocytes % (Manual) Nucleated RBC % Seg Neutrophils # Man Lymphocytes # (Manual) PT ABG pH POC ABG pCO2 POC ABG pO2 ABG pO2 ABG O2 Saturation ABG Base Excess ABG Hemoglobin ABG Oxyhemoglobin ABG Potassium ABG Chloride ABG Glucose Oxyhemoglobin Sodium 171 H* Potassium Chloride Carbon Dioxide BUN Creatinine Glucose POC Glucose 182 H 176 H Hemoglobin A1c Lactic Acid Calcium Phosphorus Magnesium Transferrin AST ALT Alkaline Phosphatase Total Creatine Kinase CK-MB (CK-2) Serum Total Protein Total Protein Albumin Kuwec-8-Bxkjixxgf Heser-8-Xjrrqkimx Gamma Globulins PEP Interpretation TSH Arterial Blood Glucose Arterial Blood Ionized Calcium Urine WBC (Auto) Urine Creatinine Urine Total Protein 04/22/21 04/22/21 04/22/21 01:04 04:52 06:07 WBC 11.2 H RBC Hgb Hct 44.3 H MCH 27 L RDW 17.1 H Plt Count 86 L Seg Neuts % (Manual) 86.0 H Lymphocytes % (Manual) 13.0 L Nucleated RBC % Seg Neutrophils # Man 9.6 H Lymphocytes # (Manual) PT ABG pH POC ABG pCO2 POC ABG pO2 ABG pO2 ABG O2 Saturation ABG Base Excess ABG Hemoglobin ABG Oxyhemoglobin ABG Potassium ABG Chloride ABG Glucose Oxyhemoglobin Sodium Potassium Chloride Carbon Dioxide BUN Creatinine Glucose POC Glucose 143 H 206 H Hemoglobin A1c Lactic Acid Calcium Phosphorus Magnesium Transferrin AST ALT Alkaline Phosphatase Total Creatine Kinase CK-MB (CK-2) Serum Total Protein Total Protein Albumin Jkfau-8-Vdmpxkwfs Xzopz-4-Tuwvngcll Gamma Globulins PEP Interpretation TSH Arterial Blood Glucose Arterial Blood Ionized Calcium Urine WBC (Auto) Urine Creatinine Urine Total Protein 12/31/21 12/31/21 12/31/21 06:09 07:18 08:59 WBC RBC Hgb Hct MCH RDW Plt Count Seg Neuts % (Manual) Lymphocytes % (Manual) Nucleated RBC % Seg Neutrophils # Man Lymphocytes # (Manual) PT ABG pH POC ABG pCO2 POC ABG pO2 ABG pO2 ABG O2 Saturation ABG Base Excess ABG Hemoglobin ABG Oxyhemoglobin ABG Potassium ABG Chloride ABG Glucose Oxyhemoglobin Sodium Potassium Chloride Carbon Dioxide BUN Creatinine Glucose POC Glucose 163 H 158 H Hemoglobin A1c Lactic Acid Calcium Phosphorus Magnesium Transferrin AST ALT Alkaline Phosphatase Total Creatine Kinase 3105 H CK-MB (CK-2) Serum Total Protein Total Protein Albumin Qhnvo-2-Opvwmafdm Kpbhp-1-Pydwaaihc Gamma Globulins PEP Interpretation TSH Arterial Blood Glucose Arterial Blood Ionized Calcium Urine WBC (Auto) Urine Creatinine Urine Total Protein 04/22/21 04/22/21 04/22/21 08:59 08:59 09:44 WBC RBC Hgb Hct MCH RDW Plt Count Seg Neuts % (Manual) Lymphocytes % (Manual) Nucleated RBC % Seg Neutrophils # Man Lymphocytes # (Manual) PT ABG pH POC ABG pCO2 POC ABG pO2 ABG pO2 ABG O2 Saturation ABG Base Excess ABG Hemoglobin ABG Oxyhemoglobin ABG Potassium ABG Chloride ABG Glucose Oxyhemoglobin Sodium 169 H* Potassium 3.5 L Chloride 134.5 H Carbon Dioxide 20 L BUN 95 H Creatinine 3.6 H Glucose 151 H POC Glucose Hemoglobin A1c Lactic Acid Calcium Phosphorus Magnesium 2.80 H Transferrin AST 121 H ALT 75 H Alkaline Phosphatase 137 H Total Creatine Kinase CK-MB (CK-2) Serum Total Protein 5.5 L Total Protein 6.0 L Albumin 2.8 L 2.1 L Pgzyy-1-Dscgfxobx 0.6 H Cfdtd-3-Nbeqnsgfy 1.0 H Gamma Globulins 0.6 L PEP Interpretation see below H TSH Arterial Blood Glucose Arterial Blood Ionized Calcium Urine WBC (Auto) Urine Creatinine Urine Total Protein 04/22/21 04/22/21 04/22/21 10:24 12:20 13:19 WBC RBC Hgb Hct MCH RDW Plt Count Seg Neuts % (Manual) Lymphocytes % (Manual) Nucleated RBC % Seg Neutrophils # Man Lymphocytes # (Manual) PT ABG pH POC ABG pCO2 POC ABG pO2 ABG pO2 ABG O2 Saturation ABG Base Excess ABG Hemoglobin ABG Oxyhemoglobin ABG Potassium ABG Chloride ABG Glucose Oxyhemoglobin Sodium Potassium Chloride Carbon Dioxide BUN Creatinine Glucose POC Glucose 107 H 131 H 147 H Hemoglobin A1c Lactic Acid Calcium Phosphorus Magnesium Transferrin AST ALT Alkaline Phosphatase Total Creatine Kinase CK-MB (CK-2) Serum Total Protein Total Protein Albumin Nmtvz-4-Whsozdugz Brdxd-4-Xtsigzwwl Gamma Globulins PEP Interpretation TSH Arterial Blood Glucose Arterial Blood Ionized Calcium Urine WBC (Auto) Urine Creatinine Urine Total Protein 04/22/21 04/22/21 04/22/21 14:16 15:22 15:55 WBC RBC Hgb Hct MCH RDW Plt Count Seg Neuts % (Manual) Lymphocytes % (Manual) Nucleated RBC % Seg Neutrophils # Man Lymphocytes # (Manual) PT ABG pH POC ABG pCO2 POC ABG pO2 ABG pO2 ABG O2 Saturation ABG Base Excess ABG Hemoglobin ABG Oxyhemoglobin ABG Potassium ABG Chloride ABG Glucose Oxyhemoglobin Sodium 169 H* Potassium Chloride 133.5 H Carbon Dioxide 19 L BUN 94 H Creatinine 3.8 H Glucose 150 H POC Glucose 154 H 136 H Hemoglobin A1c Lactic Acid Calcium Phosphorus Magnesium Transferrin AST ALT Alkaline Phosphatase Total Creatine Kinase CK-MB (CK-2) Serum Total Protein Total Protein Albumin Jjawk-4-Teooisvlt Ruysc-8-Ujdwmkhaq Gamma Globulins PEP Interpretation TSH Arterial Blood Glucose Arterial Blood Ionized Calcium Urine WBC (Auto) Urine Creatinine Urine Total Protein 04/22/21 04/22/21 04/22/21 15:55 16:22 18:11 WBC RBC Hgb Hct MCH RDW Plt Count Seg Neuts % (Manual) Lymphocytes % (Manual) Nucleated RBC % Seg Neutrophils # Man Lymphocytes # (Manual) PT ABG pH POC ABG pCO2 POC ABG pO2 ABG pO2 ABG O2 Saturation ABG Base Excess ABG Hemoglobin ABG Oxyhemoglobin ABG Potassium ABG Chloride ABG Glucose Oxyhemoglobin Sodium Potassium Chloride Carbon Dioxide BUN Creatinine Glucose POC Glucose 140 H Hemoglobin A1c 17.1 H Lactic Acid Calcium Phosphorus Magnesium Transferrin AST ALT Alkaline Phosphatase Total Creatine Kinase 2497 H CK-MB (CK-2) Serum Total Protein Total Protein Albumin Rtkjo-9-Dxpzecijz Vdgyt-8-Zwkvsolsu Gamma Globulins PEP Interpretation TSH Arterial Blood Glucose Arterial Blood Ionized Calcium Urine WBC (Auto) Urine Creatinine Urine Total Protein 04/22/21 04/22/21 04/23/21 18:26 23:19 00:27 WBC RBC Hgb Hct MCH RDW Plt Count Seg Neuts % (Manual) Lymphocytes % (Manual) Nucleated RBC % Seg Neutrophils # Man Lymphocytes # (Manual) PT ABG pH POC ABG pCO2 POC ABG pO2 ABG pO2 ABG O2 Saturation ABG Base Excess ABG Hemoglobin ABG Oxyhemoglobin ABG Potassium ABG Chloride ABG Glucose Oxyhemoglobin Sodium 162 H* Potassium Chloride Carbon Dioxide BUN Creatinine Glucose POC Glucose 146 H 188 H Hemoglobin A1c Lactic Acid Calcium Phosphorus Magnesium Transferrin AST ALT Alkaline Phosphatase Total Creatine Kinase CK-MB (CK-2) Serum Total Protein Total Protein Albumin Errew-8-Majqqpmqc Rzhqc-4-Jvobtqvti Gamma Globulins PEP Interpretation TSH Arterial Blood Glucose Arterial Blood Ionized Calcium Urine WBC (Auto) Urine Creatinine Urine Total Protein 04/23/21 04/23/21 04/23/21 05:23 07:50 08:13 WBC RBC Hgb Hct MCH RDW Plt Count Seg Neuts % (Manual) Lymphocytes % (Manual) Nucleated RBC % Seg Neutrophils # Man Lymphocytes # (Manual) PT ABG pH POC ABG pCO2 POC ABG pO2 ABG pO2 ABG O2 Saturation ABG Base Excess ABG Hemoglobin ABG Oxyhemoglobin ABG Potassium ABG Chloride ABG Glucose Oxyhemoglobin Sodium Potassium Chloride Carbon Dioxide BUN Creatinine Glucose POC Glucose 212 H 239 H Hemoglobin A1c Lactic Acid Calcium Phosphorus Magnesium Transferrin AST ALT Alkaline Phosphatase Total Creatine Kinase 1803 H CK-MB (CK-2) Serum Total Protein Total Protein Albumin Cxyxh-1-Hyulurhww Xpsdx-0-Djysmbrar Gamma Globulins PEP Interpretation TSH Arterial Blood Glucose Arterial Blood Ionized Calcium Urine WBC (Auto) Urine Creatinine Urine Total Protein 04/23/21 04/23/21 04/23/21 08:13 08:13 12:06 WBC 11.9 H RBC Hgb Hct MCH 26 L RDW 16.5 H Plt Count 72 L Seg Neuts % (Manual) 80.0 H Lymphocytes % (Manual) 5.0 L Nucleated RBC % Seg Neutrophils # Man 9.5 H Lymphocytes # (Manual) 0.6 L PT ABG pH POC ABG pCO2 POC ABG pO2 ABG pO2 ABG O2 Saturation ABG Base Excess ABG Hemoglobin ABG Oxyhemoglobin ABG Potassium ABG Chloride ABG Glucose Oxyhemoglobin Sodium 164 H* Potassium Chloride 128.0 H Carbon Dioxide 21 L BUN 93 H Creatinine 3.8 H Glucose 293 H POC Glucose 311 H Hemoglobin A1c Lactic Acid Calcium Phosphorus Magnesium Transferrin AST 99 H ALT 70 H Alkaline Phosphatase 147 H Total Creatine Kinase CK-MB (CK-2) Serum Total Protein Total Protein 6.1 L Albumin 2.0 L Nqekw-6-Uslnudhkn Tzxtj-7-Tdckmddhx Gamma Globulins PEP Interpretation TSH Arterial Blood Glucose Arterial Blood Ionized Calcium Urine WBC (Auto) Urine Creatinine Urine Total Protein 04/23/21 04/23/21 04/24/21 17:35 18:17 02:13 WBC RBC Hgb Hct MCH RDW Plt Count Seg Neuts % (Manual) Lymphocytes % (Manual) Nucleated RBC % Seg Neutrophils # Man Lymphocytes # (Manual) PT ABG pH POC ABG pCO2 POC ABG pO2 ABG pO2 ABG O2 Saturation ABG Base Excess ABG Hemoglobin ABG Oxyhemoglobin ABG Potassium ABG Chloride ABG Glucose Oxyhemoglobin Sodium 160 H 160 H Potassium Chloride Carbon Dioxide BUN Creatinine Glucose POC Glucose 370 H Hemoglobin A1c Lactic Acid Calcium Phosphorus Magnesium Transferrin AST ALT Alkaline Phosphatase Total Creatine Kinase CK-MB (CK-2) Serum Total Protein Total Protein Albumin Ngorn-6-Auhwhozlv Gbism-7-Ujfzzbgzu Gamma Globulins PEP Interpretation TSH Arterial Blood Glucose Arterial Blood Ionized Calcium Urine WBC (Auto) Urine Creatinine Urine Total Protein 04/24/21 04/24/21 04/24/21 06:00 06:00 07:46 WBC RBC Hgb Hct MCH 27 L RDW 17.0 H Plt Count 58 L Seg Neuts % (Manual) Lymphocytes % (Manual) 2.0 L Nucleated RBC % Seg Neutrophils # Man 8.9 H Lymphocytes # (Manual) 0.2 L PT ABG pH POC ABG pCO2 POC ABG pO2 ABG pO2 ABG O2 Saturation ABG Base Excess ABG Hemoglobin ABG Oxyhemoglobin ABG Potassium ABG Chloride ABG Glucose Oxyhemoglobin Sodium Potassium Chloride Carbon Dioxide BUN Creatinine Glucose POC Glucose 395 H Hemoglobin A1c Lactic Acid Calcium Phosphorus Magnesium 2.90 H Transferrin AST ALT Alkaline Phosphatase Total Creatine Kinase CK-MB (CK-2) Serum Total Protein Total Protein Albumin Lrrpq-6-Ojagtcdim Lvmjy-2-Vcgmzrxhv Gamma Globulins PEP Interpretation TSH Arterial Blood Glucose Arterial Blood Ionized Calcium Urine WBC (Auto) Urine Creatinine Urine Total Protein 04/24/21 04/24/21 04/24/21 08:15 11:34 13:11 WBC RBC Hgb Hct MCH RDW Plt Count Seg Neuts % (Manual) Lymphocytes % (Manual) Nucleated RBC % Seg Neutrophils # Man Lymphocytes # (Manual) PT ABG pH POC ABG pCO2 POC ABG pO2 ABG pO2 ABG O2 Saturation ABG Base Excess ABG Hemoglobin ABG Oxyhemoglobin ABG Potassium ABG Chloride ABG Glucose Oxyhemoglobin Sodium 159 H Potassium Chloride 125.6 H Carbon Dioxide 19 L BUN 94 H Creatinine 3.7 H Glucose 514 H* POC Glucose 422 H 384 H Hemoglobin A1c Lactic Acid Calcium Phosphorus Magnesium Transferrin AST ALT 61 H Alkaline Phosphatase 155 H Total Creatine Kinase CK-MB (CK-2) Serum Total Protein Total Protein 6.1 L Albumin 1.5 L Domtx-2-Erqwdyjmc Easbb-8-Srbyobcis Gamma Globulins PEP Interpretation TSH Arterial Blood Glucose Arterial Blood Ionized Calcium Urine WBC (Auto) Urine Creatinine Urine Total Protein 04/24/21 04/24/21 04/24/21 14:01 15:03 17:29 WBC RBC Hgb Hct MCH RDW Plt Count Seg Neuts % (Manual) Lymphocytes % (Manual) Nucleated RBC % Seg Neutrophils # Man Lymphocytes # (Manual) PT ABG pH POC ABG pCO2 POC ABG pO2 ABG pO2 ABG O2 Saturation ABG Base Excess ABG Hemoglobin ABG Oxyhemoglobin ABG Potassium ABG Chloride ABG Glucose Oxyhemoglobin Sodium Potassium Chloride Carbon Dioxide BUN Creatinine Glucose POC Glucose 423 H 418 H Hemoglobin A1c Lactic Acid Calcium Phosphorus Magnesium Transferrin 112 L AST ALT Alkaline Phosphatase Total Creatine Kinase CK-MB (CK-2) Serum Total Protein Total Protein Albumin Ingiu-4-Cnylznpaa Emplz-8-Ukxthurpq Gamma Globulins PEP Interpretation TSH Arterial Blood Glucose Arterial Blood Ionized Calcium Urine WBC (Auto) Urine Creatinine Urine Total Protein 04/24/21 04/24/21 04/24/21 18:28 19:41 22:33 WBC RBC Hgb Hct MCH RDW Plt Count Seg Neuts % (Manual) Lymphocytes % (Manual) Nucleated RBC % Seg Neutrophils # Man Lymphocytes # (Manual) PT ABG pH POC ABG pCO2 POC ABG pO2 ABG pO2 ABG O2 Saturation ABG Base Excess ABG Hemoglobin ABG Oxyhemoglobin ABG Potassium ABG Chloride ABG Glucose Oxyhemoglobin Sodium Potassium Chloride Carbon Dioxide BUN Creatinine Glucose POC Glucose 335 H 321 H 349 H Hemoglobin A1c Lactic Acid Calcium Phosphorus Magnesium Transferrin AST ALT Alkaline Phosphatase Total Creatine Kinase CK-MB (CK-2) Serum Total Protein Total Protein Albumin Lrcom-7-Dwqfnjtsn Fiybq-6-Cdksjkpkh Gamma Globulins PEP Interpretation TSH Arterial Blood Glucose Arterial Blood Ionized Calcium Urine WBC (Auto) Urine Creatinine Urine Total Protein 04/25/21 04/25/21 04/25/21 01:28 02:28 03:25 WBC RBC Hgb Hct MCH RDW Plt Count Seg Neuts % (Manual) Lymphocytes % (Manual) Nucleated RBC % Seg Neutrophils # Man Lymphocytes # (Manual) PT ABG pH POC ABG pCO2 POC ABG pO2 ABG pO2 ABG O2 Saturation ABG Base Excess ABG Hemoglobin ABG Oxyhemoglobin ABG Potassium ABG Chloride ABG Glucose Oxyhemoglobin Sodium Potassium Chloride Carbon Dioxide BUN Creatinine Glucose POC Glucose 283 H 247 H 196 H Hemoglobin A1c Lactic Acid Calcium Phosphorus Magnesium Transferrin AST ALT Alkaline Phosphatase Total Creatine Kinase CK-MB (CK-2) Serum Total Protein Total Protein Albumin Zlbwq-9-Boiatxkrf Kfxfr-0-Nzxykasno Gamma Globulins PEP Interpretation TSH Arterial Blood Glucose Arterial Blood Ionized Calcium Urine WBC (Auto) Urine Creatinine Urine Total Protein 04/25/21 04/25/21 04/25/21 04:22 05:40 05:45 WBC RBC Hgb Hct MCH 27 L RDW 17.0 H Plt Count 64 L Seg Neuts % (Manual) 84.0 H Lymphocytes % (Manual) 6.0 L Nucleated RBC % 1.0 H Seg Neutrophils # Man Lymphocytes # (Manual) 0.4 L PT ABG pH POC ABG pCO2 POC ABG pO2 ABG pO2 ABG O2 Saturation ABG Base Excess ABG Hemoglobin ABG Oxyhemoglobin ABG Potassium ABG Chloride ABG Glucose Oxyhemoglobin Sodium Potassium Chloride Carbon Dioxide BUN Creatinine Glucose POC Glucose 207 H 204 H Hemoglobin A1c Lactic Acid Calcium Phosphorus Magnesium Transferrin AST ALT Alkaline Phosphatase Total Creatine Kinase CK-MB (CK-2) Serum Total Protein Total Protein Albumin Mmyrf-5-Imgfyhhhc Gjywr-4-Qpzzfduid Gamma Globulins PEP Interpretation TSH Arterial Blood Glucose Arterial Blood Ionized Calcium Urine WBC (Auto) Urine Creatinine Urine Total Protein 04/25/21 04/25/21 04/25/21 06:43 07:37 08:11 WBC RBC Hgb Hct MCH RDW Plt Count Seg Neuts % (Manual) Lymphocytes % (Manual) Nucleated RBC % Seg Neutrophils # Man Lymphocytes # (Manual) PT ABG pH POC ABG pCO2 POC ABG pO2 ABG pO2 ABG O2 Saturation ABG Base Excess ABG Hemoglobin ABG Oxyhemoglobin ABG Potassium ABG Chloride ABG Glucose Oxyhemoglobin Sodium 148 H D Potassium Chloride 115.7 H Carbon Dioxide 21 L BUN 83 H Creatinine 3.6 H Glucose 247 H POC Glucose 238 H 201 H Hemoglobin A1c Lactic Acid Calcium Phosphorus Magnesium Transferrin AST 63 H ALT 62 H Alkaline Phosphatase 143 H Total Creatine Kinase CK-MB (CK-2) Serum Total Protein Total Protein 5.4 L Albumin 1.4 L Hrylg-3-Lzaqelydq Fcntf-9-Qmbnbbflf Gamma Globulins PEP Interpretation TSH Arterial Blood Glucose Arterial Blood Ionized Calcium Urine WBC (Auto) Urine Creatinine Urine Total Protein 04/25/21 04/25/21 04/25/21 08:11 08:41 09:22 WBC RBC Hgb Hct MCH RDW Plt Count Seg Neuts % (Manual) Lymphocytes % (Manual) Nucleated RBC % Seg Neutrophils # Man Lymphocytes # (Manual) PT ABG pH POC ABG pCO2 POC ABG pO2 ABG pO2 ABG O2 Saturation ABG Base Excess ABG Hemoglobin ABG Oxyhemoglobin ABG Potassium ABG Chloride ABG Glucose Oxyhemoglobin Sodium Potassium Chloride Carbon Dioxide BUN Creatinine Glucose POC Glucose 220 H 228 H Hemoglobin A1c Lactic Acid Calcium Phosphorus Magnesium 2.50 H Transferrin AST ALT Alkaline Phosphatase Total Creatine Kinase CK-MB (CK-2) Serum Total Protein Total Protein Albumin Nynyy-2-Wixuhtnei Whqmt-8-Mrabdldyc Gamma Globulins PEP Interpretation TSH Arterial Blood Glucose Arterial Blood Ionized Calcium Urine WBC (Auto) Urine Creatinine Urine Total Protein 04/25/21 04/25/21 04/25/21 10:31 11:44 12:23 WBC RBC Hgb Hct MCH RDW Plt Count Seg Neuts % (Manual) Lymphocytes % (Manual) Nucleated RBC % Seg Neutrophils # Man Lymphocytes # (Manual) PT ABG pH POC ABG pCO2 POC ABG pO2 ABG pO2 ABG O2 Saturation ABG Base Excess ABG Hemoglobin ABG Oxyhemoglobin ABG Potassium ABG Chloride ABG Glucose Oxyhemoglobin Sodium Potassium Chloride Carbon Dioxide BUN Creatinine Glucose POC Glucose 215 H 191 H 229 H Hemoglobin A1c Lactic Acid Calcium Phosphorus Magnesium Transferrin AST ALT Alkaline Phosphatase Total Creatine Kinase CK-MB (CK-2) Serum Total Protein Total Protein Albumin Behhp-2-Qieznpync Rvnic-9-Gecyydmhb Gamma Globulins PEP Interpretation TSH Arterial Blood Glucose Arterial Blood Ionized Calcium Urine WBC (Auto) Urine Creatinine Urine Total Protein 04/25/21 04/25/21 04/25/21 13:48 14:11 18:01 WBC RBC Hgb Hct MCH RDW Plt Count Seg Neuts % (Manual) Lymphocytes % (Manual) Nucleated RBC % Seg Neutrophils # Man Lymphocytes # (Manual) PT ABG pH POC ABG pCO2 POC ABG pO2 ABG pO2 ABG O2 Saturation ABG Base Excess ABG Hemoglobin ABG Oxyhemoglobin ABG Potassium ABG Chloride ABG Glucose Oxyhemoglobin Sodium Potassium Chloride Carbon Dioxide BUN Creatinine Glucose POC Glucose 177 H 161 H 264 H Hemoglobin A1c Lactic Acid Calcium Phosphorus Magnesium Transferrin AST ALT Alkaline Phosphatase Total Creatine Kinase CK-MB (CK-2) Serum Total Protein Total Protein Albumin Lpxiq-9-Azyytfnuf Xoxml-1-Iukxzagqd Gamma Globulins PEP Interpretation TSH Arterial Blood Glucose Arterial Blood Ionized Calcium Urine WBC (Auto) Urine Creatinine Urine Total Protein 04/25/21 04/26/21 04/26/21 21:31 01:19 06:31 WBC RBC Hgb Hct MCH RDW Plt Count Seg Neuts % (Manual) Lymphocytes % (Manual) Nucleated RBC % Seg Neutrophils # Man Lymphocytes # (Manual) PT ABG pH POC ABG pCO2 POC ABG pO2 ABG pO2 ABG O2 Saturation ABG Base Excess ABG Hemoglobin ABG Oxyhemoglobin ABG Potassium ABG Chloride ABG Glucose Oxyhemoglobin Sodium Potassium Chloride Carbon Dioxide BUN Creatinine Glucose POC Glucose 371 H 356 H 428 H Hemoglobin A1c Lactic Acid Calcium Phosphorus Magnesium Transferrin AST ALT Alkaline Phosphatase Total Creatine Kinase CK-MB (CK-2) Serum Total Protein Total Protein Albumin Qubhd-7-Qisvoazzj Mtslv-9-Puipsrmgm Gamma Globulins PEP Interpretation TSH Arterial Blood Glucose Arterial Blood Ionized Calcium Urine WBC (Auto) Urine Creatinine Urine Total Protein 04/26/21 04/26/21 04/26/21 09:13 09:33 09:33 WBC RBC Hgb Hct MCH 27 L RDW 16.9 H Plt Count 58 L Seg Neuts % (Manual) 77.0 H Lymphocytes % (Manual) 4.0 L Nucleated RBC % 2.0 H Seg Neutrophils # Man Lymphocytes # (Manual) 0.3 L PT ABG pH POC ABG pCO2 POC ABG pO2 ABG pO2 ABG O2 Saturation ABG Base Excess ABG Hemoglobin ABG Oxyhemoglobin ABG Potassium ABG Chloride ABG Glucose Oxyhemoglobin Sodium Potassium Chloride Carbon Dioxide BUN Creatinine Glucose POC Glucose 454 H Hemoglobin A1c Lactic Acid Calcium Phosphorus 5.60 H D Magnesium Transferrin AST ALT Alkaline Phosphatase Total Creatine Kinase CK-MB (CK-2) Serum Total Protein Total Protein Albumin Bckxw-0-Zevpqksyc Mzhkt-2-Njfttekvo Gamma Globulins PEP Interpretation TSH Arterial Blood Glucose Arterial Blood Ionized Calcium Urine WBC (Auto) Urine Creatinine Urine Total Protein 04/26/21 04/26/21 04/26/21 09:33 11:00 12:36 WBC RBC Hgb Hct MCH RDW Plt Count Seg Neuts % (Manual) Lymphocytes % (Manual) Nucleated RBC % Seg Neutrophils # Man Lymphocytes # (Manual) PT ABG pH 7.281 L POC ABG pCO2 POC ABG pO2 66.4 L ABG pO2 ABG O2 Saturation ABG Base Excess ABG Hemoglobin 10.9 L ABG Oxyhemoglobin 91 L ABG Potassium ABG Chloride ABG Glucose 521 H Oxyhemoglobin Sodium Potassium Chloride Carbon Dioxide 19 L BUN 98 H Creatinine 3.8 H Glucose 530 H* POC Glucose 414 H Hemoglobin A1c Lactic Acid Calcium 8.1 L Phosphorus Magnesium Transferrin AST 60 H ALT 72 H Alkaline Phosphatase 168 H Total Creatine Kinase CK-MB (CK-2) Serum Total Protein Total Protein 4.6 L Albumin 1.7 L Lxqpw-8-Xfwvnwxuv Ibblw-1-Vxrhfkimi Gamma Globulins PEP Interpretation TSH Arterial Blood Glucose 521 H Arterial Blood Ionized Calcium Urine WBC (Auto) Urine Creatinine Urine Total Protein 04/26/21 04/26/21 04/26/21 15:39 16:18 21:14 WBC RBC Hgb Hct MCH RDW Plt Count Seg Neuts % (Manual) Lymphocytes % (Manual) Nucleated RBC % Seg Neutrophils # Man Lymphocytes # (Manual) PT ABG pH 7.275 L POC ABG pCO2 POC ABG pO2 63.4 L ABG pO2 ABG O2 Saturation ABG Base Excess ABG Hemoglobin 8.4 L ABG Oxyhemoglobin 89.5 L ABG Potassium ABG Chloride 108.0 H ABG Glucose 404 H Oxyhemoglobin Sodium Potassium Chloride Carbon Dioxide BUN Creatinine Glucose POC Glucose 324 H 242 H Hemoglobin A1c Lactic Acid Calcium Phosphorus Magnesium Transferrin AST ALT Alkaline Phosphatase Total Creatine Kinase CK-MB (CK-2) Serum Total Protein Total Protein Albumin Brgpj-5-Kifqcijck Mrfor-5-Wttieqlxo Gamma Globulins PEP Interpretation TSH Arterial Blood Glucose 404 H Arterial Blood Ionized Calcium Urine WBC (Auto) Urine Creatinine Urine Total Protein 04/27/21 04/27/21 04/27/21 00:07 05:47 06:23 WBC RBC Hgb Hct MCH RDW Plt Count Seg Neuts % (Manual) Lymphocytes % (Manual) Nucleated RBC % Seg Neutrophils # Man Lymphocytes # (Manual) PT ABG pH POC ABG pCO2 POC ABG pO2 ABG pO2 ABG O2 Saturation ABG Base Excess ABG Hemoglobin ABG Oxyhemoglobin ABG Potassium ABG Chloride ABG Glucose Oxyhemoglobin Sodium Potassium Chloride Carbon Dioxide BUN Creatinine Glucose POC Glucose 282 H 214 H 187 H Hemoglobin A1c Lactic Acid Calcium Phosphorus Magnesium Transferrin AST ALT Alkaline Phosphatase Total Creatine Kinase CK-MB (CK-2) Serum Total Protein Total Protein Albumin Tipfz-1-Pbdgrrohw Lortu-9-Rdtcfcurq Gamma Globulins PEP Interpretation TSH Arterial Blood Glucose Arterial Blood Ionized Calcium Urine WBC (Auto) Urine Creatinine Urine Total Protein 04/27/21 04/27/21 04/27/21 07:43 08:30 11:54 WBC RBC Hgb Hct MCH RDW Plt Count Seg Neuts % (Manual) Lymphocytes % (Manual) Nucleated RBC % Seg Neutrophils # Man Lymphocytes # (Manual) PT ABG pH 7.309 L POC ABG pCO2 POC ABG pO2 70.6 L ABG pO2 ABG O2 Saturation ABG Base Excess ABG Hemoglobin 9.16 L ABG Oxyhemoglobin 92.4 L ABG Potassium ABG Chloride ABG Glucose Oxyhemoglobin Sodium Potassium Chloride 110.1 H Carbon Dioxide 15 L BUN 109 H Creatinine 4.3 H Glucose 218 H POC Glucose 147 H Hemoglobin A1c Lactic Acid Calcium Phosphorus Magnesium Transferrin AST 53 H ALT Alkaline Phosphatase 148 H Total Creatine Kinase 1000 H CK-MB (CK-2) Serum Total Protein Total Protein 5.2 L Albumin 1.2 L Dsiau-5-Zksqlxdxi Ffvdh-8-Aubvhirjg Gamma Globulins PEP Interpretation TSH Arterial Blood Glucose Arterial Blood Ionized Calcium Urine WBC (Auto) Urine Creatinine Urine Total Protein 04/27/21 04/27/21 04/28/21 21:08 23:28 04:00 WBC 12.6 H RBC 3.59 L Hgb 9.4 L Hct MCH 26 L RDW 16.6 H Plt Count 111 L Seg Neuts % (Manual) Lymphocytes % (Manual) 1.0 L Nucleated RBC % 4.0 H Seg Neutrophils # Man 11.6 H Lymphocytes # (Manual) 0.1 L PT ABG pH POC ABG pCO2 POC ABG pO2 ABG pO2 ABG O2 Saturation ABG Base Excess ABG Hemoglobin ABG Oxyhemoglobin ABG Potassium ABG Chloride ABG Glucose Oxyhemoglobin Sodium Potassium Chloride Carbon Dioxide BUN Creatinine Glucose POC Glucose 136 H 201 H Hemoglobin A1c Lactic Acid Calcium Phosphorus Magnesium Transferrin AST ALT Alkaline Phosphatase Total Creatine Kinase CK-MB (CK-2) Serum Total Protein Total Protein Albumin Pfjzv-3-Eanxoxfht Cvssz-9-Iyejcozep Gamma Globulins PEP Interpretation TSH Arterial Blood Glucose Arterial Blood Ionized Calcium Urine WBC (Auto) Urine Creatinine Urine Total Protein 04/28/21 04/28/21 04/28/21 04:00 05:00 05:08 WBC RBC Hgb Hct MCH RDW Plt Count Seg Neuts % (Manual) Lymphocytes % (Manual) Nucleated RBC % Seg Neutrophils # Man Lymphocytes # (Manual) PT 15.3 H ABG pH POC ABG pCO2 POC ABG pO2 ABG pO2 ABG O2 Saturation ABG Base Excess ABG Hemoglobin ABG Oxyhemoglobin ABG Potassium ABG Chloride ABG Glucose Oxyhemoglobin Sodium 147 H Potassium 3.5 L D Chloride Carbon Dioxide BUN 79 H Creatinine 3.8 H Glucose 194 H POC Glucose 183 H Hemoglobin A1c Lactic Acid Calcium 8.1 L Phosphorus Magnesium Transferrin AST ALT Alkaline Phosphatase Total Creatine Kinase CK-MB (CK-2) Serum Total Protein Total Protein Albumin Vxobk-7-Jvnfkuhme Klnjl-6-Skormxkiw Gamma Globulins PEP Interpretation TSH Arterial Blood Glucose Arterial Blood Ionized Calcium Urine WBC (Auto) Urine Creatinine Urine Total Protein 04/28/21 04/28/21 04/28/21 05:18 11:04 17:16 WBC RBC Hgb Hct MCH RDW Plt Count Seg Neuts % (Manual) Lymphocytes % (Manual) Nucleated RBC % Seg Neutrophils # Man Lymphocytes # (Manual) PT ABG pH POC ABG pCO2 POC ABG pO2 66.5 L ABG pO2 ABG O2 Saturation ABG Base Excess ABG Hemoglobin 9.7 L ABG Oxyhemoglobin 92.5 L ABG Potassium 3.2 L ABG Chloride ABG Glucose 200 H Oxyhemoglobin Sodium Potassium Chloride Carbon Dioxide BUN Creatinine Glucose POC Glucose 174 H 135 H Hemoglobin A1c Lactic Acid Calcium Phosphorus Magnesium Transferrin AST ALT Alkaline Phosphatase Total Creatine Kinase CK-MB (CK-2) Serum Total Protein Total Protein Albumin Aksvo-1-Volvcesif Tlqhe-1-Eehtwayud Gamma Globulins PEP Interpretation TSH Arterial Blood Glucose 200 H Arterial Blood Ionized Calcium 4.5 L Urine WBC (Auto) Urine Creatinine Urine Total Protein 04/28/21 04/28/21 04/29/21 21:14 23:41 01:16 WBC RBC Hgb Hct MCH RDW Plt Count Seg Neuts % (Manual) Lymphocytes % (Manual) Nucleated RBC % Seg Neutrophils # Man Lymphocytes # (Manual) PT ABG pH POC ABG pCO2 POC ABG pO2 ABG pO2 ABG O2 Saturation ABG Base Excess ABG Hemoglobin ABG Oxyhemoglobin ABG Potassium ABG Chloride ABG Glucose Oxyhemoglobin Sodium Potassium Chloride Carbon Dioxide BUN Creatinine Glucose POC Glucose 134 H 171 H 236 H Hemoglobin A1c Lactic Acid Calcium Phosphorus Magnesium Transferrin AST ALT Alkaline Phosphatase Total Creatine Kinase CK-MB (CK-2) Serum Total Protein Total Protein Albumin Nooxu-8-Pxusnjnnx Efthz-7-Omxyipkoi Gamma Globulins PEP Interpretation TSH Arterial Blood Glucose Arterial Blood Ionized Calcium Urine WBC (Auto) Urine Creatinine Urine Total Protein 04/29/21 04/29/21 04/29/21 04:00 04:00 11:35 WBC 13.3 H RBC 3.12 L Hgb 8.3 L Hct 26.2 L MCH 27 L RDW 16.3 H Plt Count 132 L Seg Neuts % (Manual) Lymphocytes % (Manual) Nucleated RBC % Seg Neutrophils # Man Lymphocytes # (Manual) PT ABG pH POC ABG pCO2 POC ABG pO2 ABG pO2 ABG O2 Saturation ABG Base Excess ABG Hemoglobin ABG Oxyhemoglobin ABG Potassium ABG Chloride ABG Glucose Oxyhemoglobin Sodium Potassium Chloride Carbon Dioxide BUN 63 H Creatinine 3.4 H Glucose 249 H POC Glucose 320 H Hemoglobin A1c Lactic Acid Calcium 8.2 L Phosphorus Magnesium Transferrin AST 61 H ALT 71 H Alkaline Phosphatase 170 H Total Creatine Kinase CK-MB (CK-2) Serum Total Protein Total Protein 5.1 L Albumin 1.6 L Sjnpo-3-Nzleboucd Khntj-2-Ejplsqbqv Gamma Globulins PEP Interpretation TSH Arterial Blood Glucose Arterial Blood Ionized Calcium Urine WBC (Auto) Urine Creatinine Urine Total Protein 04/29/21 04/29/21 04/29/21 13:30 16:01 21:58 WBC RBC Hgb Hct MCH RDW Plt Count Seg Neuts % (Manual) Lymphocytes % (Manual) Nucleated RBC % Seg Neutrophils # Man Lymphocytes # (Manual) PT ABG pH POC ABG pCO2 POC ABG pO2 ABG pO2 ABG O2 Saturation ABG Base Excess ABG Hemoglobin ABG Oxyhemoglobin ABG Potassium ABG Chloride ABG Glucose Oxyhemoglobin Sodium Potassium Chloride Carbon Dioxide BUN Creatinine Glucose POC Glucose 297 H 260 H Hemoglobin A1c Lactic Acid Calcium Phosphorus Magnesium Transferrin AST ALT Alkaline Phosphatase Total Creatine Kinase CK-MB (CK-2) Serum Total Protein Total Protein Albumin Ecwva-1-Qbmrmanrd Ecqir-1-Ewdggxiam Gamma Globulins PEP Interpretation TSH Arterial Blood Glucose Arterial Blood Ionized Calcium Urine WBC (Auto) > 182.0 H Urine Creatinine Urine Total Protein 04/29/21 04/30/21 04/30/21 23:35 04:00 04:00 WBC 11.4 H RBC 3.27 L Hgb 8.7 L Hct 27.5 L MCH 27 L RDW 16.6 H Plt Count Seg Neuts % (Manual) Lymphocytes % (Manual) Nucleated RBC % Seg Neutrophils # Man Lymphocytes # (Manual) PT ABG pH POC ABG pCO2 POC ABG pO2 ABG pO2 ABG O2 Saturation ABG Base Excess ABG Hemoglobin ABG Oxyhemoglobin ABG Potassium ABG Chloride ABG Glucose Oxyhemoglobin Sodium Potassium 3.1 L Chloride Carbon Dioxide BUN 79 H Creatinine 3.9 H Glucose 275 H POC Glucose 254 H Hemoglobin A1c Lactic Acid Calcium Phosphorus 5.60 H D Magnesium Transferrin AST ALT Alkaline Phosphatase Total Creatine Kinase CK-MB (CK-2) Serum Total Protein Total Protein Albumin Vwjfy-5-Vlipuxyvs Llpim-7-Xctrkspaf Gamma Globulins PEP Interpretation TSH Arterial Blood Glucose Arterial Blood Ionized Calcium Urine WBC (Auto) Urine Creatinine Urine Total Protein 04/30/21 04/30/21 05:17 05:31 WBC RBC Hgb Hct MCH RDW Plt Count Seg Neuts % (Manual) Lymphocytes % (Manual) Nucleated RBC % Seg Neutrophils # Man Lymphocytes # (Manual) PT ABG pH 7.452 H POC ABG pCO2 30.5 L POC ABG pO2 54.5 L ABG pO2 ABG O2 Saturation ABG Base Excess ABG Hemoglobin 10.1 L ABG Oxyhemoglobin 87.4 L ABG Potassium 2.9 L ABG Chloride ABG Glucose 305 H Oxyhemoglobin Sodium Potassium Chloride Carbon Dioxide BUN Creatinine Glucose POC Glucose 267 H Hemoglobin A1c Lactic Acid Calcium Phosphorus Magnesium Transferrin AST ALT Alkaline Phosphatase Total Creatine Kinase CK-MB (CK-2) Serum Total Protein Total Protein Albumin Fwhec-4-Qjhqhyjoc Ypgrl-1-Ihotxjncj Gamma Globulins PEP Interpretation TSH Arterial Blood Glucose 305 H Arterial Blood Ionized Calcium Urine WBC (Auto) Urine Creatinine Urine Total Protein
[2021-04-30] MEDS: SENNOSIDES/DOCUSATE SODIUM 8.6/50 MG TAB FEEDTUBE SCH ×2 (09:47→22:15)
[2021-04-30] MEDS: FAMOTIDINE 10 MG TAB FEEDTUBE SCH ×2 (09:56→22:15)
[2021-04-30] MEDS: INSULIN NPH, HUMAN 100 UNIT/1 ML SUB-Q SCH ×2 (10:05→22:25)
--- NOTE | 2021-04-30 10:24 | Progress Note ---
Assessment and Plan (1) Acute metabolic encephalopathy (2) Diabetic hyperosmolar non-ketotic state 3) SYED (acute kidney injury) (4) Dehydration (5) Hypernatremia (6) Rhabdomyolysis (7) Hypernatremia 8) GERD (gastroesophageal reflux disease) (9) Metabolic acidosis (10) Leukocytosis On IHD after consent obtained from nephew last week. Has vascath. CXR congested. HD today with target UF 3L. Will need HD again tomorrow. On Levophed. Will titrate to keep MAP >65 during HD UA bland Intubated on Vent. Monitor Ck renally dose meds Strict I&O In ICU Critical Care time: 35 minutes Subjective Date of service: 04/30/21 Principal diagnosis: Acute respiratory failure Interval history: Intubated on Vent. On IHD. On Levophed. Objective - Exam Narrative Exam: General appearance: Intubated EENT: mucous membranes dry Neck: Present: neck supple Respiratory: Decreased Breath Sounds Heart: tachycardia Gastrointestinal: Present: normoactive bowel sounds. Absent: tenderness, distended, masses Integumentary: no rash, warm and dry Neurologic: Sedated Musculoskeletal: Present: other (no edema in BLE) - Vital Signs Vital signs: Vital Signs - 12hr 04/29/21 04/29/21 04/29/21 22:31 22:45 23:00 Temperature Pulse Rate 78 82 76 Pulse Rate [ From Monitor] Respiratory 17 21 18 Rate Blood Pressure 138/54 138/54 140/56 O2 Sat by Pulse 99 97 99 Oximetry 04/29/21 04/29/21 04/29/21 23:15 23:31 23:45 Temperature Pulse Rate 73 74 74 Pulse Rate [ From Monitor] Respiratory 19 18 18 Rate Blood Pressure 140/56 140/56 140/56 O2 Sat by Pulse 100 100 100 Oximetry 04/30/21 04/30/21 04/30/21 00:00 00:01 00:15 Temperature 97.4 F L Pulse Rate 79 81 74 Pulse Rate [ 103 H From Monitor] Respiratory 21 17 17 Rate Blood Pressure 159/60 159/60 O2 Sat by Pulse 96 100 99 Oximetry 04/30/21 04/30/21 04/30/21 00:31 00:35 00:45 Temperature Pulse Rate 71 70 73 Pulse Rate [ From Monitor] Respiratory 18 18 Rate Blood Pressure 159/60 159/60 159/60 O2 Sat by Pulse 99 99 96 Oximetry 04/30/21 04/30/21 04/30/21 01:00 01:15 01:31 Temperature Pulse Rate 75 77 80 Pulse Rate [ From Monitor] Respiratory 19 20 20 Rate Blood Pressure 162/60 162/60 162/60 O2 Sat by Pulse 97 96 98 Oximetry 04/30/21 04/30/21 04/30/21 01:46 02:00 02:16 Temperature Pulse Rate 86 82 85 Pulse Rate [ From Monitor] Respiratory 31 H 19 19 Rate Blood Pressure 162/60 141/52 141/52 O2 Sat by Pulse 97 98 100 Oximetry 04/30/21 04/30/21 04/30/21 02:30 02:46 03:00 Temperature Pulse Rate 95 H 95 H 84 Pulse Rate [ From Monitor] Respiratory 20 29 H 18 Rate Blood Pressure 141/52 141/52 140/55 O2 Sat by Pulse 94 96 98 Oximetry 04/30/21 04/30/21 04/30/21 03:16 03:30 03:46 Temperature Pulse Rate 92 H 92 H 90 Pulse Rate [ From Monitor] Respiratory 23 27 H 23 Rate Blood Pressure 140/55 140/55 140/55 O2 Sat by Pulse 100 100 100 Oximetry 04/30/21 04/30/21 04/30/21 04:00 04:16 04:30 Temperature 97.7 F Pulse Rate 87 87 86 Pulse Rate [ 103 H From Monitor] Respiratory 24 26 H 24 Rate Blood Pressure 134/55 112/51 112/51 O2 Sat by Pulse 100 99 95 Oximetry 04/30/21 04/30/21 04/30/21 04:40 04:46 05:00 Temperature Pulse Rate 78 81 80 Pulse Rate [ From Monitor] Respiratory 25 H 24 Rate Blood Pressure 136/58 112/51 136/58 O2 Sat by Pulse 97 94 97 Oximetry 04/30/21 04/30/21 04/30/21 05:15 05:30 05:45 Temperature Pulse Rate 78 78 76 Pulse Rate [ From Monitor] Respiratory 23 22 19 Rate Blood Pressure 125/52 141/59 147/60 O2 Sat by Pulse 97 99 100 Oximetry 04/30/21 04/30/21 06:00 08:00 Temperature 97.4 F L Pulse Rate 77 81 Pulse Rate [ From Monitor] Respiratory 18 Rate Blood Pressure 124/54 118/55 O2 Sat by Pulse 100 100 Oximetry - Lab 04/30/21 04:00 04/30/21 04:00 Most recent lab results ABG pH 7.452 (7.320-7.450) H 04/30/21 05:31 ABG pCO2 31.6 mm Hg 04/21/21 15:47 ABG pO2 168.1 mm Hg (80.0-90.0) H 04/21/21 15:47 ABG HCO3 23.3 mmol/L (20.0-26.0) 04/21/21 15:47 ABG O2 Saturation 88.1 (0-100) 04/30/21 05:31 Calcium 8.6 mg/dL (8.4-10.2) 04/30/21 04:00 Phosphorus 5.60 mg/dL (2.5-4.5) H D 04/30/21 04:00 Magnesium 2.10 mg/dL (1.7-2.3) 04/30/21 04:00 Urine Creatinine 44.3 mg/dL (0.1-20.0) H 04/21/21 08:01 Urine Sodium 71 mmol/L 04/21/21 08:01 Urine Total Protein 12 mg/dL (5-11.8) H 04/21/21 08:01 Medications & Allergies - Medications Allergies/Adverse Reactions: Allergies No Known Allergies Allergy (Unverified 04/20/21 14:35) Active Medications: Generic Name Dose Route Start Last Admin Trade Name Freq PRN Reason Stop Dose Admin Acetaminophen 650 mg 04/20/21 21:31 04/29/21 03:53 Acetaminophen 325 Mg Tab PO 650 mg Q4H PRN Administration Pain MILD(1-3)/Fever >100.5/TURCIOS Albuterol 2.5 mg 04/22/21 14:49 04/23/21 15:18 Albuterol 2.5 Mg/3 Ml Nebu IH 2.5 mg Q4HRT PRN Administration Shortness Of Breath Lipase/Protease/Amylase 1 each 04/25/21 14:13 Lipase 10,500/Protease 25,000/Amylase 43,750 (Units) Dr Vasquez FEEDTUBE PRN PRN For Clogged Feeding Tube Dextrose 50 ml 04/24/21 11:36 Dextrose 50% In Water (25gm) 50 Ml Syringe IV Q30MIN PRN Hypoglycemia Protocol Famotidine 10 mg 04/27/21 10:00 04/30/21 09:56 Famotidine 10 Mg Tab FEEDTUBE 10 mg BID AZIZA Administration Hydralazine HCl 10 mg 04/24/21 21:22 Hydralazine 20 Mg/1 Ml Inj IV Q4HR PRN elevated BP Hydrophilic Ointment 1 applic 04/26/21 11:16 Lip Therapy Vaseline TP Q2HR PRN Dry Lips NORepinephrine/NS 8 MG-250 ML 8 mg in 250 mls @ 3.75 mls/hr 04/26/21 16:00 04/30/21 10:01 Norepinephrine/Ns 8 Mg-250 Ml (Double Conc) IV 0 mcg/min TITRATE AZIZA 0 mls/hr Titration Protocol 2 MCG/MIN Sodium Chloride 100 mls @ 999 mls/hr 04/27/21 10:43 Nacl 0.9% IV MITCH PRN Hypotension Cefepime HCl 2 gm in 100 mls @ 200 mls/hr 04/29/21 22:00 04/29/21 21:50 Cefepime/Ns 2 Gm/100 Ml IV 200 mls/hr Q24H AZIZA Administration Protocol Insulin Human Lispro 0 unit 04/25/21 18:00 04/30/21 07:08 Insulin Lispro 100 Unit/Ml SUB-Q 6 unit Q6HR AZIZA Administration Protocol Insulin Human NPH 40 unit 04/30/21 10:00 04/30/21 10:05 Insulin Nph, Human 100 Unit/1 Ml SUB-Q 40 unit Q12HR AZIZA Administration Lorazepam 1 mg 04/26/21 11:15 04/30/21 02:50 Lorazepam 2 Mg/Ml Vial IV 1 mg Q4H PRN Administration Sedation Metoclopramide HCl 5 mg 04/20/21 21:31 Metoclopramide 10 Mg/2 Ml Inj IV Q6H PRN Nausea And Vomiting Multi-Ingred Cream/Lotion/Oil/Oint 1 applic 04/26/21 11:16 Mineral Oil/Petrolatum, White Ophth Oint 3.5 Gm OU Q4HR PRN Dry Eye(s) Ondansetron HCl 4 mg 04/20/21 21:31 Ondansetron 4 Mg/2 Ml Inj IV Q8H PRN Nausea And Vomiting Potassium Chloride 40 meq 04/30/21 09:30 04/30/21 09:56 Potassium Chloride 20 Meq Packet FEEDTUBE 04/30/21 12:00 40 meq ONCE NR Administration Senna/Docusate Sodium 1 tab 04/26/21 22:00 04/30/21 09:47 Sennosides/Docusate Sodium 8.6/50 Mg Tab FEEDTUBE Not Given BID AZIZA Simple Syrup 15 ml 04/25/21 14:13 Simple Syrup 15 Ml FEEDTUBE PRN PRN Hypoglycemia Simple Syrup 30 ml 04/25/21 14:13 Simple Syrup 15 Ml FEEDTUBE PRN PRN Hypoglycemia Sodium Bicarbonate 325 mg 04/25/21 14:13 04/27/21 13:00 Sodium Bicarbonate 325 Mg Tab FEEDTUBE 325 mg PRN PRN Administration For Clogged Feeding Tube Sodium Bicarbonate 1,300 mg 04/27/21 14:00 04/30/21 08:28 Sodium Bicarbonate 650 Mg Tab PO 1,300 mg TID AZIZA Administration Sodium Chloride 10 ml 04/20/21 22:00 04/30/21 09:56 Sodium Chloride 0.9% 10 Ml Flush Syringe IV 10 ml BID AZIZA Administration Sodium Chloride 10 ml 04/20/21 21:31 Sodium Chloride 0.9% 10 Ml Flush Syringe IV PRN PRN LINE FLUSH
--- NOTE | 2021-04-30 10:38 | Progress Note ---
<LISA CLIFTON - Last Filed: 04/30/21 17:50> Assessment and Plan Assessment and plan: This is a 80-year-old female, shelter resident with past medical history of GERD, hypothyroidism, hyperlipidemia, schizophrenia and dementia admitted with hypothermia, hyponatremia, hypokalemia, lactic acidosis, acute kidney injury, rhabdomyolysis and hyperosmolar nonketotic state. Hospital Course to Date: This is a 80-year-old female who was shelter resident at [place] with GERD, hypothyroidism, hyperlipidemia, schizophrenia and dementia presented to the emergency department on 04/20 after being found unresponsive by the staff via EMS. Per EMS glucose levels read as high. Work-up in the emergency department revealed severe hypernatremia, leukocytosis, metabolic acidosis, hyperchloremia, elevated BUN/creatinine, lactic acidosis and hyperglycemia. Patient was also hypothermic on admit. CT head showed findings suggestive of the possibility of normal pressure hydrocephalus. Patient was admitted to the hospitalist service with acute metabolic encephalopathy, diabetic hyperosmolar nonketotic state, acute kidney injury, hypernatremia, rhabdomyolysis and leukocytosis with consults to nephrology and CCM. 04/21: Given 1 L LR bolus per nephrology and D5W increased to 125 mL's per hour, COVID-19 PCR pending, CXR and ABG ordered as patient was weaned from BiPAP to 3 L nasal cannula however was uptitrated back to nonrebreather. Will obtain blood cultures x2 given her leukocytosis and hypothermia. Replace potassium. Neurosurgery and neurology consulted and Luther catheter placed. 04/22: Improvement to sodium noted, slight hypokalemia which will be repleted, slight improvement to renal function, LFTs and rhabdomyolysis. Seen by neurosurgery today. Patient still making urine. transition to ssi and start TF as AG 15 04/23/2021: Given racemic epinephrine again due to stridor, continue IV fluids per nephrology, continue to trend sodium and BMP. 04/24/2021: /30 increased d/t hyperglycemia but recent BMP showed BG>300, gave additional 5 units IV insulin and ordered 5 units TID scheduled. However after IV insulin her PCOT was 400. Start on insulin gtt for hyperglycemia. Per RN she was not of IV D5 overniught d/t having one IV which was needed for emergency. Day RN did start dextrose. Remains with hyperglycemia. 04/25: Patient obtunded, withdrawal to pain only, on 50%Venti mask SPO2 abobe 92%. Plan to transition to SubQ insulin. Patient with mild hypernatremia this am, FWF added, will stop IVF for now. 04/26: Patient s/p intubation this am. Mentation is unchanged, plan for MRI brain today per NeuroSurg. Still hyperglycemic, hypernatremia improved, D5W D/katlyn, and basal insulin adjusted. 04/27: Bronch overnight. CXR with mild improvement. D/w Nephro plan for HD today, RIJ VasCath inserted. MRI on hold per [facility] patient is too unstable at this time, plan for possible spinal drained tomorrow to see if mentation will improve. 04/28: Tolerated HD overnight, only UF. Mentation remains the same. D/w [facility] plan for possible large volume spinal tap under fluoroscopy today. Plan for possible HD again today. Continue FWF for elevated Na. 04/29: MARY overnight. Plan for spinal tap this am. febrile overnight with leukocytosis, remains on pressors and more tachycardic now. Will panculture patient, and empiric IV was initiated. Remains hyperglycemic, basal insulin ad justed. 04/30: Patient's mentation remains unchanged post spinal tap. Plan for possible MRI brain next week. Afebrile overnight and leukocytosis improved, However, vent settings are going up and this am ABG with hypoxia, this am CXR with worsening opacities. Patient with 3+ pitting edema. Continue HD per Nephro. Continue current empiric IV abx, f/u on culture data, might need to get ID on board if worsen. Assessment and Plan #Neuro: Acute metabolic encephalopathy #Normal Pressure Hydrocephalus -CT head shows lateral ventricles and third ventricle dilation, raises possibility of normal pressure hydrocephalus -Neurology and neurosurgery consulted, appreciate recommendations -neurosurgery no acute interventions -04/29 s/p spinal tap, mental is unchanged -Plan for MRI possibly next week -Maintain sleep-wake cycle -Avoid delirium -Correct electrolyte derangements -Hold off on restarting home antipsychotic medications when obtained #Hypotension #Tachycardia #Sepsis -Low BP, multifactorial-hypovelemia vs infectious process -Tachycardia and febrile this am -Continue pressors- Levophed gtt -Titrate pressors for a MAP above 65 -Continue blood pressure monitor per protocol #Respiratory: Acute hypoxic respiratory failure #CAP #Possible Aspiration -Patient decompensated overnight SPO2 dropped in the low 70s -S/p intubation this am 04/26 -Vent setting:PRVC-50%,8,14,450 -04/26 s/p bronchoscopy, this am CXR with mild improvement -This am ABG noted -This am CXR slight worse compare to prior -CCM consulted, appreciate recommendations -VAP bundle addressed -Aspiration precaution HOB above 30 -Daily SBT and SAT trials as tolerated -Daily ABG and CXR -Continue SPO2 monitoring for SPO2 goal above 92% #GI:Transaminitis #Hypoalbuminemia -Presented with transaminitis -Trend LFTs -Continue enteral nutrition -Ntr consult for TF -BR: Senokot -PPI #:Acute Kidney Injury (SYED) likely secondary to vasomotor nephropathy #Hypokalemia #Hypernatremia-improved #Urinary Retention-resolved -FeNA 0.50 indicating prerenal sate -Nephrology and CCM consulted, appreciate recommendations -04/27 vascath inserted and HD initiated, patient tolerated it well -Patient with 3+ pitting edema -HD per Nephro -Luther catheter placed for strict intake and output -Avoid nephrotoxic medication, Renally dose medications -K repleted -Continue to monitor and replace electrolytes as needed -Trend BMP #ID:CAP #Leukocytosis #Urinary Tract Infection(UTI) -Patient presented hypothemic -CXR shows increased interstitial prominence of densities in bilateral lungs -COVID-19 PCR negative -Blood culture x2 NGTD -Antibiotic therapy course ended today 04/25 -Patient is afebrile this am, leukocytosis improved -UA with pyuria -Blood culture, and sputum culture pending -Continue current empiric IV abx -Monitor WBC and fever curve -Continue to F/U on B.cult -Daily CBC monitor -Consider ID consult if febrile or/and if leukocytosis worsen #Endo:Hyperglycemia #s/p HHNK -Transition to SubQ insulin -Continue high dose SSI Q6hrs -Basal, NPH adjusted -Avoid hypoglycemia #Heme:Thrombocytopenia-imporved -Presented with low plt, unknow etiology -Plt count is improving -AC still on hold -Trend CBC -Transfuse to hemoglobin less than 7 -Monitor for bleeding -r/o DVT, BUE doppler neg -SCD to bilateral lower extremities while in bed The high probability of a clinically significant, sudden or life threatening det erioration of the [Neuro, Respiratory,ID] system(s) required my full and direct attention, intervention and personal management. The aggregate critical care time was [60] minutes. This time is in addition to time spent performing reported procedures but includes the following: [x] Data Review and interpretation [x] Patient assessment and monitoring of vital signs [x] Documentation [x] Medication orders and management Disposition Plan: ICU Total Time Spent with Patient (Minutes): 60 History Interval history: Patient seen and examined at the bedside. S/p spinal tap, patient remains unresponsive, only withdrawal from pain, not on any sedation. Still on low dose levophed gtt for hypotension. MARY overnight Hospitalist Physical - Constitutional Vitals: Temp Pulse Resp BP Pulse Ox 97.4 F L 81 18 118/55 100 04/30/21 08:00 04/30/21 08:00 04/30/21 06:00 04/30/21 08:00 04/30/21 08:00 General appearance: Present: no acute distress, other (Intubated and unresponsive) - EENT Eyes: Present: PERRL - Respiratory Respiratory effort: normal Respiratory: bilateral: rhonchi - Cardiovascular Rhythm: regular Heart Sounds: Present: S1 & S2 - Extremities Extremities: no ischemia, pulses intact, pulses symmetrical Extremity abnormal: edema - Peripheral Assessment Generalized Edema Type: Pitting Edema Degree: 3+ Capillary Refill: < 3 seconds Skin Temperature: Warm Peripheral Pulses: within normal limits - Abdominal General gastrointestinal: soft, non-tender, normal bowel sounds - Integumentary Integumentary: Present: warm, dry - Psychiatric Psychiatric: other (Intubated and unresponsive) - Neurologic Neurologic: other (Intubated and unresponsive) - Allied Health Allied health notes reviewed: nursing HEART Score - HEART Score Troponin: Troponin T 0.021 ng/mL (0.00-0.029) 04/20/21 17:10 Results - Labs CBC & Chem 7: 04/30/21 04:00 04/30/21 04:00 Labs: Laboratory Last Values WBC 11.4 K/mm3 (4.5-11.0) H 04/30/21 04:00 RBC 3.27 M/mm3 (3.65-5.03) L 04/30/21 04:00 Hgb 8.7 gm/dl (10.1-14.3) L 04/30/21 04:00 Hct 27.5 % (30.3-42.9) L 04/30/21 04:00 MCV 84 fl (79-97) 04/30/21 04:00 MCH 27 pg (28-32) L 04/30/21 04:00 MCHC 32 % (30-34) 04/30/21 04:00 RDW 16.6 % (13.2-15.2) H 04/30/21 04:00 Plt Count 165 K/mm3 (140-440) 04/30/21 04:00 Add Manual Diff Complete 04/28/21 04:00 Total Counted 100 04/28/21 04:00 Seg Neutrophils % Nuclear Engineering Technician 04/28/21 04:00 Seg Neuts % (Manual) 77.0 % (40.0-70.0) H 04/26/21 09:33 Band Neutrophils % 2.0 % 04/28/21 04:00 Lymphocytes % (Manual) 1.0 % (13.4-35.0) L 04/28/21 04:00 Reactive Lymphs % (Man) 0 % 04/28/21 04:00 Monocytes % (Manual) 1.0 % (0.0-7.3) 04/28/21 04:00 Eosinophils % (Manual) 3.0 % (0.0-4.3) 04/28/21 04:00 Metamyelocytes % 1.0 % 04/28/21 04:00 Myelocytes % 0 % 04/28/21 04:00 Promyelocytes % 0 % 04/28/21 04:00 Blast Cells % 0 % 04/28/21 04:00 Nucleated RBC % 4.0 % (0.0-0.9) H 04/28/21 04:00 Seg Neutrophils # Man 11.6 K/mm3 (1.8-7.7) H 04/28/21 04:00 Band Neutrophils # 0.3 K/mm3 04/28/21 04:00 Lymphocytes # (Manual) 0.1 K/mm3 (1.2-5.4) L 04/28/21 04:00 Abs React Lymphs (Man) 0.0 K/mm3 04/28/21 04:00 Monocytes # (Manual) 0.1 K/mm3 (0.0-0.8) 04/28/21 04:00 Eosinophils # (Manual) 0.4 K/mm3 (0.0-0.4) 04/28/21 04:00 Basophils # (Manual) 0.0 K/mm3 (0.0-0.1) 04/28/21 04:00 Metamyelocytes # 0.1 K/mm3 04/28/21 04:00 Myelocytes # 0.0 K/mm3 04/28/21 04:00 Promyelocytes # 0.0 K/mm3 04/28/21 04:00 Blast Cells # 0.0 K/mm3 04/28/21 04:00 WBC Morphology Not Reportable 04/28/21 04:00 Hypersegmented Neuts Not Reportable 04/28/21 04:00 Hyposegmented Neuts Not Reportable 04/28/21 04:00 Hypogranular Neuts Not Reportable 04/28/21 04:00 Smudge Cells Not Reportable 04/28/21 04:00 Toxic Granulation Not Reportable 04/28/21 04:00 Toxic Vacuolation Not Reportable 04/28/21 04:00 Dohle Bodies Not Reportable 04/28/21 04:00 Pelger-Huet Anomaly Not Reportable 04/28/21 04:00 Moni Rods Not Reportable 04/28/21 04:00 Platelet Estimate Consistent w auto 04/28/21 04:00 Clumped Platelets Not Reportable 04/28/21 04:00 Plt Clumps, EDTA Not Reportable 04/28/21 04:00 Large Platelets Few 04/28/21 04:00 Giant Platelets Not Reportable 04/28/21 04:00 Platelet Satelliting Not Reportable 04/28/21 04:00 Plt Morphology Comment Not Reportable 04/28/21 04:00 RBC Morphology Not Reportable 04/28/21 04:00 Dimorphic RBCs Not Reportable 04/28/21 04:00 Polychromasia Not Reportable 04/28/21 04:00 Hypochromasia Not Reportable 04/28/21 04:00 Poikilocytosis Not Reportable 04/28/21 04:00 Anisocytosis Not Reportable 04/28/21 04:00 Microcytosis Not Reportable 04/28/21 04:00 Macrocytosis Not Reportable 04/28/21 04:00 Spherocytes Not Reportable 04/28/21 04:00 Pappenheimer Bodies Not Reportable 04/28/21 04:00 Sickle Cells Not Reportable 04/28/21 04:00 Target Cells 1+ 04/28/21 04:00 Tear Drop Cells Not Reportable 04/28/21 04:00 Ovalocytes Not Reportable 04/28/21 04:00 Helmet Cells Not Reportable 04/28/21 04:00 [place] Bodies Not Reportable 04/28/21 04:00 Deposit Rings Not Reportable 04/28/21 04:00 [place] Cells Not Reportable 04/28/21 04:00 Bite Cells Not Reportable 04/28/21 04:00 Crenated Cell Not Reportable 04/28/21 04:00 Elliptocytes Not Reportable 04/28/21 04:00 Acanthocytes (Spur) Not Reportable 04/28/21 04:00 Rouleaux Not Reportable 04/28/21 04:00 Hemoglobin C Crystals Not Reportable 04/28/21 04:00 Schistocytes Not Reportable 04/28/21 04:00 Malaria parasites Not Reportable 04/28/21 04:00 Herrera Bodies Not Reportable 04/28/21 04:00 Hem Pathologist Commnt No 04/28/21 04:00 PT 15.3 Sec. (12.2-14.9) H 04/28/21 05:00 INR 1.09 (0.87-1.13) 04/28/21 05:00 APTT 36.6 Sec. (24.2-36.6) 04/28/21 05:00 Heparin Anti-Xa, Unfract Negative (Negative) 04/24/21 17:29 ABG pH 7.452 (7.320-7.450) H 04/30/21 05:31 POC ABG pCO2 30.5 mmHg (32.0-48.0) L 04/30/21 05:31 ABG pCO2 31.6 mm Hg 04/21/21 15:47 POC ABG pO2 54.5 mmHg (83-108) L 04/30/21 05:31 ABG pO2 168.1 mm Hg (80.0-90.0) H 04/21/21 15:47 POC ABG HCO3 20.8 04/30/21 05:31 ABG HCO3 23.3 mmol/L (20.0-26.0) 04/21/21 15:47 ABG O2 Saturation 88.1 (0-100) 04/30/21 05:31 ABG O2 Content 12.7 (0.0-44) 04/21/21 15:47 POC ABG Base Excess -2.4 04/30/21 05:31 ABG Base Excess 0.3 mmol/L (-2.0-3.0) 04/21/21 15:47 ABG Hemoglobin 10.1 (12.0-17.5) L 04/30/21 05:31 ABG Oxyhemoglobin 87.4 (94-98) L 04/30/21 05:31 ABG Carboxyhemoglobin 1.0 % (0.0-5.0) 04/21/21 15:47 ABG Methemoglobin 0.3 (0.0-1.5) 04/30/21 05:31 ABG Sodium 136.1 mmol/L (136.0-145.0) 04/30/21 05:31 ABG Potassium 2.9 mmol/L (3.40-4.50) L 04/30/21 05:31 ABG Chloride 102.0 mmol/L (98-107) 04/30/21 05:31 ABG Glucose 305 mg/dL (65-95) H 04/30/21 05:31 VBG pH 7.397 (7.320-7.420) 04/20/21 17:10 Oxyhemoglobin 97.5 % (95.0-99.0) 04/21/21 15:47 Carboxyhemoglobin 0.5 (0.5-1.5) 04/30/21 05:31 FiO2 100 % 04/21/21 15:47 FiO2 % 30.0 04/30/21 05:31 Sodium 139 mmol/L (137-145) 04/30/21 04:00 Potassium 3.1 mmol/L (3.6-5.0) L 04/30/21 04:00 Chloride 100.6 mmol/L (98-107) 04/30/21 04:00 Carbon Dioxide 23 mmol/L (22-30) 04/30/21 04:00 Anion Gap 19 mmol/L 04/30/21 04:00 BUN 79 mg/dL (7-17) H 04/30/21 04:00 Creatinine 3.9 mg/dL (0.6-1.2) H 04/30/21 04:00 Estimated GFR 13 ml/min 04/30/21 04:00 BUN/Creatinine Ratio 20 % 04/30/21 04:00 Glucose 275 mg/dL (65-100) H 04/30/21 04:00 POC Glucose 267 mg/dL (70-105) H 04/30/21 05:17 Hemoglobin A1c 17.1 % (4-6) H 04/22/21 15:55 Lactic Acid 1.90 mmol/L (0.7-2.0) 04/20/21 19:56 Calcium 8.6 mg/dL (8.4-10.2) 04/30/21 04:00 Phosphorus 5.60 mg/dL (2.5-4.5) H D 04/30/21 04:00 Magnesium 2.10 mg/dL (1.7-2.3) 04/30/21 04:00 Iron 62 ug/dL (37-170) 04/24/21 17:29 TIBC 285 mcg/dL (250-450) 04/24/21 17:29 % Saturation 21.75 % 04/24/21 17:29 Transferrin 112 mg/dl (192-382) L 04/24/21 17:29 Total Bilirubin 0.30 mg/dL (0.1-1.2) 04/29/21 04:00 Direct Bilirubin < 0.2 mg/dL (0-0.2) 04/29/21 04:00 Indirect Bilirubin 0.1 mg/dL 04/29/21 04:00 AST 61 units/L (5-40) H 04/29/21 04:00 ALT 71 units/L (7-56) H 04/29/21 04:00 Alkaline Phosphatase 170 units/L (35-129) H 04/29/21 04:00 Ammonia 29.0 umol/L (25-60) 04/20/21 17:10 Total Creatine Kinase 1000 units/L (30-135) H 04/27/21 07:43 CK-MB (CK-2) 36.0 ng/mL (0.0-4.0) H 04/20/21 17:10 CK-MB (CK-2) Rel Index 0.9 (0-4) 04/20/21 17:10 Troponin T 0.021 ng/mL (0.00-0.029) 04/20/21 17:10 Serum Total Protein 5.5 g/dL (6.1-8.1) L 04/22/21 08:59 Total Protein 5.1 g/dL (6.3-8.2) L 04/29/21 04:00 Albumin 1.6 g/dL (3.9-5) L 04/29/21 04:00 Albumin/Globulin Ratio 0.5 % 04/29/21 04:00 Tyqdh-3-Hqvjtuorx 0.6 g/dL (0.2-0.3) H 04/22/21 08:59 Ysvum-0-Wunifvgjc 1.0 g/dL (0.5-0.9) H 04/22/21 08:59 Beta Globulins 0.3 g/dL (0.2-0.5) 04/22/21 08:59 Gamma Globulins 0.6 g/dL (0.8-1.7) L 04/22/21 08:59 Abnorm Protein Band 1 see below 04/22/21 08:59 PEP Interpretation see below H 04/22/21 08:59 TSH 6.040 mlU/mL (0.270-4.200) H 04/20/21 17:10 Free T4 0.93 ng/dL (0.76-1.46) 04/20/21 17:10 Arterial Blood Glucose 305 mg/dL (65-95) H 04/30/21 05:31 Arterial Blood Ionized Calcium 4.5 mg/dL (4.6-5.3) L 04/28/21 05:18 Urine Color Yellow (Yellow) 04/29/21 13:30 Urine Turbidity Turbid (Clear) 04/29/21 13:30 Urine pH 5.0 (5.0-7.0) 04/29/21 13:30 Ur Specific [place] 1.010 (1.003-1.030) 04/29/21 13:30 Urine Protein 100 mg/dl mg/dL (Negative) 04/29/21 13:30 Urine Glucose (UA) 150 mg/dL (Negative) 04/29/21 13:30 Urine Ketones Neg mg/dL (Negative) 04/29/21 13:30 Urine Blood Lg (Negative) 04/29/21 13:30 Urine Nitrite Neg (Negative) 04/29/21 13:30 Urine Bilirubin Neg (Negative) 04/29/21 13:30 Urine Urobilinogen < 2.0 mg/dL (<2.0) 04/29/21 13:30 Ur Leukocyte Esterase Lg (Negative) 04/29/21 13:30 Urine WBC (Auto) > 182.0 /HPF (0.0-6.0) H 04/29/21 13:30 Urine RBC (Auto) > 182.0 /HPF (0.0-6.0) 04/29/21 13:30 U Epithel Cells (Auto) 4.0 /HPF (0-13.0) 04/29/21 13:30 Urine WBC Clumps 3+ /HPF 04/29/21 13:30 Urine Mucus Few /HPF 04/29/21 13:30 Urine Yeast (Budding) 3+ /HPF 04/29/21 13:30 Urine Osmolality 446 Mosm/kg 04/21/21 08:01 Urine Creatinine 44.3 mg/dL (0.1-20.0) H 04/21/21 08:01 Urine Sodium 71 mmol/L 04/21/21 08:01 Urine Total Protein 12 mg/dL (5-11.8) H 04/21/21 08:01 CSF Appearance Clear 04/29/21 11:45 CSF Color Colorless 04/29/21 11:45 CSF WBC 14 /mm3 (1-10) 04/29/21 11:45 CSF RBC 324 /mm3 (0-0) 04/29/21 11:45 CSF Seg Neutrophils 50.0 % (0-6) 04/29/21 11:45 CSF Lymphocytes % 40.0 % (40-80) 04/29/21 11:45 CSF Reactive Lymphs Not Reportable 04/29/21 11:45 CSF Monocytes % 10.0 % (15-45) 04/29/21 11:45 CSF Eosinophils % Not Reportable 04/29/21 11:45 CSF Basophils Not Reportable 04/29/21 11:45 CSF Pathologist Review C 04/29/21 11:45 CSF Glucose 161 mg/dL 04/29/21 11:45 CSF Total Protein 51 mg/dL 04/29/21 11:45 Plasma/Serum Alcohol < 0.01 % (0-0.07) 04/20/21 17:10 Heparin-induced Plt Ab Negative (Negative) 04/24/21 17:29 UF Heparin High Dose 1 % Release 04/24/21 17:29 EFE UFH Low Dose 0.1 0 % Release 04/24/21 17:29 EFE UFH Low Dose 0.5 0 % Release 04/24/21 17:29 Coronavirus (PCR) Negative (Negative) 04/21/21 Unknown Hepatitis A IgM Ab Non-reactive (NonReactive) 04/27/21 12:49 Hep Bs Antigen Nonreactive (Negative) 04/27/21 12:49 Hep B Core IgM Ab Non-reactive (NonReactive) 04/27/21 12:49 Hepatitis C Antibody Non-reactive (NonReactive) 04/27/21 12:49 Microbiology: Microbiology 04/29/21 13:15 Peripheral/Venous Blood Culture - Preliminary Culture in Progress 04/26/21 14:50 Tracheal Aspirate Sputum Culture - Final Luther/IV: Voiding Method Indwelling Catheter Active Medications - Current Medications Current Medications: Generic Name Dose Route Start Last Admin Trade Name Freq PRN Reason Stop Dose Admin Acetaminophen 650 mg 04/20/21 21:31 04/29/21 03:53 Acetaminophen 325 Mg Tab PO 650 mg Q4H PRN Administration Pain MILD(1-3)/Fever >100.5/TURCIOS Albuterol 2.5 mg 04/22/21 14:49 04/23/21 15:18 Albuterol 2.5 Mg/3 Ml Nebu IH 2.5 mg Q4HRT PRN Administration Shortness Of Breath Lipase/Protease/Amylase 1 each 04/25/21 14:13 Lipase 10,500/Protease 25,000/Amylase 43,750 (Units) Dr Vasquez FEEDTUBE PRN PRN For Clogged Feeding Tube Dextrose 50 ml 04/24/21 11:36 Dextrose 50% In Water (25gm) 50 Ml Syringe IV Q30MIN PRN Hypoglycemia Protocol Famotidine 10 mg 04/27/21 10:00 04/30/21 09:56 Famotidine 10 Mg Tab FEEDTUBE 10 mg BID AZIZA Administration Hydralazine HCl 10 mg 04/24/21 21:22 Hydralazine 20 Mg/1 Ml Inj IV Q4HR PRN elevated BP Hydrophilic Ointment 1 applic 04/26/21 11:16 Lip Therapy Vaseline TP Q2HR PRN Dry Lips NORepinephrine/NS 8 MG-250 ML 8 mg in 250 mls @ 3.75 mls/hr 04/26/21 16:00 04/30/21 10:01 Norepinephrine/Ns 8 Mg-250 Ml (Double Conc) IV 0 mcg/min TITRATE AZIZA 0 mls/hr Titration Protocol 2 MCG/MIN Cefepime HCl 2 gm in 100 mls @ 200 mls/hr 04/29/21 22:00 04/29/21 21:50 Cefepime/Ns 2 Gm/100 Ml IV 200 mls/hr Q24H AZIZA Administration Protocol Sodium Chloride 100 mls @ 999 mls/hr 04/30/21 11:00 Nacl 0.9% IV MITCH PRN Hypotension Insulin Human Lispro 0 unit 04/25/21 18:00 04/30/21 07:08 Insulin Lispro 100 Unit/Ml SUB-Q 6 unit Q6HR AZIZA Administration Protocol Insulin Human NPH 40 unit 04/30/21 10:00 04/30/21 10:05 Insulin Nph, Human 100 Unit/1 Ml SUB-Q 40 unit Q12HR AZIZA Administration Lorazepam 1 mg 04/26/21 11:15 04/30/21 02:50 Lorazepam 2 Mg/Ml Vial IV 1 mg Q4H PRN Administration Sedation Metoclopramide HCl 5 mg 04/20/21 21:31 Metoclopramide 10 Mg/2 Ml Inj IV Q6H PRN Nausea And Vomiting Multi-Ingred Cream/Lotion/Oil/Oint 1 applic 04/26/21 11:16 Mineral Oil/Petrolatum, White Ophth Oint 3.5 Gm OU Q4HR PRN Dry Eye(s) Ondansetron HCl 4 mg 04/20/21 21:31 Ondansetron 4 Mg/2 Ml Inj IV Q8H PRN Nausea And Vomiting Potassium Chloride 40 meq 04/30/21 09:30 04/30/21 09:56 Potassium Chloride 20 Meq Packet FEEDTUBE 04/30/21 12:00 40 meq ONCE NR Administration Senna/Docusate Sodium 1 tab 04/26/21 22:00 04/30/21 09:47 Sennosides/Docusate Sodium 8.6/50 Mg Tab FEEDTUBE Not Given BID AZIZA Simple Syrup 15 ml 04/25/21 14:13 Simple Syrup 15 Ml FEEDTUBE PRN PRN Hypoglycemia Simple Syrup 30 ml 04/25/21 14:13 Simple Syrup 15 Ml FEEDTUBE PRN PRN Hypoglycemia Sodium Bicarbonate 325 mg 04/25/21 14:13 04/27/21 13:00 Sodium Bicarbonate 325 Mg Tab FEEDTUBE 325 mg PRN PRN Administration For Clogged Feeding Tube Sodium Bicarbonate 1,300 mg 04/27/21 14:00 04/30/21 08:28 Sodium Bicarbonate 650 Mg Tab PO 1,300 mg TID AZIZA Administration Sodium Chloride 10 ml 04/20/21 22:00 04/30/21 09:56 Sodium Chloride 0.9% 10 Ml Flush Syringe IV 10 ml BID AZIZA Administration Sodium Chloride 10 ml 04/20/21 21:31 Sodium Chloride 0.9% 10 Ml Flush Syringe IV PRN PRN LINE FLUSH Nutrition/Malnutrition Assess - Dietary Evaluation Nutrition/Malnutrition Findings: Nutrition Notes Start: 04/21/21 12:15 Freq: Status: Active Protocol: Document 04/29/21 14:05 TAMMY (Rec: 04/29/21 14:17 [facility] [id number]) Nutrition Notes Initial or Follow up Reassessment Current Diagnosis Acute Kidney Injury, Respiratory Failure, Hyperlipidemia Other Pertinent Diagnosis Acute metabolic encephalopathy , Dehydration, Hyperosmolar non-ketotic state Current Diet TF-Nepro 27 ml/hr Labs/Tests BUN 63 Cr 3.4 BG 249 Elevated LFTs Pertinent Medications Levophed gtt, Senokot Height 5 ft 2 in Weight 72.4 kg [place] Body Weight (kg) 50.00 BMI 29.2 Weight Status Overweight Subjective/Other Information Pt received first HD on 04/27 and second HD yesterday. No HD needed today, per nephrology. HD needs to be assessed daily. Observed Nepro infusing at 45ml/hr at time of visit (12:29). RN informed of correct TF rate. Pt remains on vent support. Percent of energy/protein needs met: 140% energy 100% pro Burn Absent Trauma Absent #1 Nutrition Diagnosis Inadequate oral intake Diagnosis Progress(for reassessment Continues documentation) Is patient on ventilator? Yes Is Patient Ambulatory and/or Out of Bed No REE-([place] Jeor-confined to bed) [phone] Calculation Used for Recommendations [place] Je[facility] Additional Notes Pro needs >1.2g/kg: >87g/day Fluid needs 1-1.5L/day Nutrition Intervention Nutrition Support: Decrease current TF rate to 32ml/hr and provide 140ml water flush q4h. Kcal 1,382 Protein (gm) 62 Carbohydrates (gm) 124 Fat (gm) 74 Fluid (mL) 558 Fiber (gm) 10 Goal #1 TF tolerance Goal #2 TF to meet at least 75% energy and pro needs Follow-Up By: 05/04/21 Additional Comments F/U: stable TF, vent status, renal function <RUPAL VIZCAINO - Last Filed: 05/01/21 08:45> Assessment and Plan Assessment and plan: I saw and evaluated the patient. I agree with the findings and the plan of care as documented in the Nurse Practitioner's~note, with the following corrections and additions. Hospitalist Physical - Constitutional Vitals: Temp Pulse Resp BP Pulse Ox 101.7 F H 102 H 23 124/55 100 05/01/21 07:31 05/01/21 08:00 05/01/21 08:00 05/01/21 08:00 05/01/21 08:00 HEART Score - HEART Score Troponin: Troponin T 0.021 ng/mL (0.00-0.029) 04/20/21 17:10 Results - Labs CBC & Chem 7: 05/01/21 04:00 05/01/21 04:00 Labs: Laboratory Last Values WBC 12.0 K/mm3 (4.5-11.0) H 05/01/21 04:00 RBC 3.08 M/mm3 (3.65-5.03) L 05/01/21 04:00 Hgb 8.1 gm/dl (10.1-14.3) L 05/01/21 04:00 Hct 25.6 % (30.3-42.9) L 05/01/21 04:00 MCV 83 fl (79-97) 05/01/21 04:00 MCH 26 pg (28-32) L 05/01/21 04:00 MCHC 32 % (30-34) 05/01/21 04:00 RDW 16.3 % (13.2-15.2) H 05/01/21 04:00 Plt Count 173 K/mm3 (140-440) 05/01/21 04:00 Add Manual Diff Complete 04/28/21 04:00 Total Counted 100 04/28/21 04:00 Seg Neutrophils % Nuclear Engineering Technician 04/28/21 04:00 Seg Neuts % (Manual) 77.0 % (40.0-70.0) H 04/26/21 09:33 Band Neutrophils % 2.0 % 04/28/21 04:00 Lymphocytes % (Manual) 1.0 % (13.4-35.0) L 04/28/21 04:00 Reactive Lymphs % (Man) 0 % 04/28/21 04:00 Monocytes % (Manual) 1.0 % (0.0-7.3) 04/28/21 04:00 Eosinophils % (Manual) 3.0 % (0.0-4.3) 04/28/21 04:00 Metamyelocytes % 1.0 % 04/28/21 04:00 Myelocytes % 0 % 04/28/21 04:00 Promyelocytes % 0 % 04/28/21 04:00 Blast Cells % 0 % 04/28/21 04:00 Nucleated RBC % 4.0 % (0.0-0.9) H 04/28/21 04:00 Seg Neutrophils # Man 11.6 K/mm3 (1.8-7.7) H 04/28/21 04:00 Band Neutrophils # 0.3 K/mm3 04/28/21 04:00 Lymphocytes # (Manual) 0.1 K/mm3 (1.2-5.4) L 04/28/21 04:00 Abs React Lymphs (Man) 0.0 K/mm3 04/28/21 04:00 Monocytes # (Manual) 0.1 K/mm3 (0.0-0.8) 04/28/21 04:00 Eosinophils # (Manual) 0.4 K/mm3 (0.0-0.4) 04/28/21 04:00 Basophils # (Manual) 0.0 K/mm3 (0.0-0.1) 04/28/21 04:00 Metamyelocytes # 0.1 K/mm3 04/28/21 04:00 Myelocytes # 0.0 K/mm3 04/28/21 04:00 Promyelocytes # 0.0 K/mm3 04/28/21 04:00 Blast Cells # 0.0 K/mm3 04/28/21 04:00 WBC Morphology Not Reportable 04/28/21 04:00 Hypersegmented Neuts Not Reportable 04/28/21 04:00 Hyposegmented Neuts Not Reportable 04/28/21 04:00 Hypogranular Neuts Not Reportable 04/28/21 04:00 Smudge Cells Not Reportable 04/28/21 04:00 Toxic Granulation Not Reportable 04/28/21 04:00 Toxic Vacuolation Not Reportable 04/28/21 04:00 Dohle Bodies Not Reportable 04/28/21 04:00 Pelger-Huet Anomaly Not Reportable 04/28/21 04:00 Moni Rods Not Reportable 04/28/21 04:00 Platelet Estimate Consistent w auto 04/28/21 04:00 Clumped Platelets Not Reportable 04/28/21 04:00 Plt Clumps, EDTA Not Reportable 04/28/21 04:00 Large Platelets Few 04/28/21 04:00 Giant Platelets Not Reportable 04/28/21 04:00 Platelet Satelliting Not Reportable 04/28/21 04:00 Plt Morphology Comment Not Reportable 04/28/21 04:00 RBC Morphology Not Reportable 04/28/21 04:00 Dimorphic RBCs Not Reportable 04/28/21 04:00 Polychromasia Not Reportable 04/28/21 04:00 Hypochromasia Not Reportable 04/28/21 04:00 Poikilocytosis Not Reportable 04/28/21 04:00 Anisocytosis Not Reportable 04/28/21 04:00 Microcytosis Not Reportable 04/28/21 04:00 Macrocytosis Not Reportable 04/28/21 04:00 Spherocytes Not Reportable 04/28/21 04:00 Pappenheimer Bodies Not Reportable 04/28/21 04:00 Sickle Cells Not Reportable 04/28/21 04:00 Target Cells 1+ 04/28/21 04:00 Tear Drop Cells Not Reportable 04/28/21 04:00 Ovalocytes Not Reportable 04/28/21 04:00 Helmet Cells Not Reportable 04/28/21 04:00 [place] Bodies Not Reportable 04/28/21 04:00 Deposit Rings Not Reportable 04/28/21 04:00 [place] Cells Not Reportable 04/28/21 04:00 Bite Cells Not Reportable 04/28/21 04:00 Crenated Cell Not Reportable 04/28/21 04:00 Elliptocytes Not Reportable 04/28/21 04:00 Acanthocytes (Spur) Not Reportable 04/28/21 04:00 Rouleaux Not Reportable 04/28/21 04:00 Hemoglobin C Crystals Not Reportable 04/28/21 04:00 Schistocytes Not Reportable 04/28/21 04:00 Malaria parasites Not Reportable 04/28/21 04:00 Herrera Bodies Not Reportable 04/28/21 04:00 Hem Pathologist Commnt No 04/28/21 04:00 PT 15.3 Sec. (12.2-14.9) H 04/28/21 05:00 INR 1.09 (0.87-1.13) 04/28/21 05:00 APTT 36.6 Sec. (24.2-36.6) 04/28/21 05:00 Heparin Anti-Xa, Unfract Negative (Negative) 04/24/21 17:29 ABG pH 7.493 (7.320-7.450) H 05/01/21 03:30 POC ABG pCO2 33.3 mmHg (32.0-48.0) 05/01/21 03:30 ABG pCO2 31.6 mm Hg 04/21/21 15:47 POC ABG pO2 89.9 mmHg (83-108) 05/01/21 03:30 ABG pO2 168.1 mm Hg (80.0-90.0) H 04/21/21 15:47 POC ABG HCO3 25.0 05/01/21 03:30 ABG HCO3 23.3 mmol/L (20.0-26.0) 04/21/21 15:47 ABG O2 Saturation 97.1 (0-100) 05/01/21 03:30 ABG O2 Content 12.7 (0.0-44) 04/21/21 15:47 POC ABG Base Excess 1.9 05/01/21 03:30 ABG Base Excess 0.3 mmol/L (-2.0-3.0) 04/21/21 15:47 ABG Hemoglobin 25.0 (12.0-17.5) H 05/01/21 03:30 ABG Oxyhemoglobin 96.4 (94-98) 05/01/21 03:30 ABG Carboxyhemoglobin 1.0 % (0.0-5.0) 04/21/21 15:47 ABG Methemoglobin 0.3 (0.0-1.5) 05/01/21 03:30 ABG Sodium 140.8 mmol/L (136.0-145.0) 05/01/21 03:30 ABG Potassium 3.5 mmol/L (3.40-4.50) 05/01/21 03:30 ABG Chloride 104.0 mmol/L (98-107) 05/01/21 03:30 ABG Glucose 167 mg/dL (65-95) H 05/01/21 03:30 VBG pH 7.397 (7.320-7.420) 04/20/21 17:10 Oxyhemoglobin 97.5 % (95.0-99.0) 04/21/21 15:47 Carboxyhemoglobin 0.4 (0.5-1.5) L 05/01/21 03:30 FiO2 100 % 04/21/21 15:47 FiO2 % 50.0 05/01/21 03:30 Sodium 142 mmol/L (137-145) 05/01/21 04:00 Potassium 3.5 mmol/L (3.6-5.0) L 05/01/21 04:00 Chloride 104.7 mmol/L (98-107) 05/01/21 04:00 Carbon Dioxide 24 mmol/L (22-30) 05/01/21 04:00 Anion Gap 17 mmol/L 05/01/21 04:00 BUN 62 mg/dL (7-17) H 05/01/21 04:00 Creatinine 3.3 mg/dL (0.6-1.2) H 05/01/21 04:00 Estimated GFR 16 ml/min 05/01/21 04:00 BUN/Creatinine Ratio 19 % 05/01/21 04:00 Glucose 179 mg/dL (65-100) H 05/01/21 04:00 POC Glucose 197 mg/dL (70-105) H 05/01/21 05:48 Hemoglobin A1c 17.1 % (4-6) H 04/22/21 15:55 Lactic Acid 1.90 mmol/L (0.7-2.0) 04/20/21 19:56 Calcium 8.3 mg/dL (8.4-10.2) L 05/01/21 04:00 Phosphorus 3.80 mg/dL (2.5-4.5) D 05/01/21 04:00 Magnesium 1.80 mg/dL (1.7-2.3) 05/01/21 04:00 Iron 62 ug/dL (37-170) 04/24/21 17:29 TIBC 285 mcg/dL (250-450) 04/24/21 17:29 % Saturation 21.75 % 04/24/21 17:29 Transferrin 112 mg/dl (192-382) L 04/24/21 17:29 Total Bilirubin 0.30 mg/dL (0.1-1.2) 04/29/21 04:00 Direct Bilirubin < 0.2 mg/dL (0-0.2) 04/29/21 04:00 Indirect Bilirubin 0.1 mg/dL 04/29/21 04:00 AST 61 units/L (5-40) H 04/29/21 04:00 ALT 71 units/L (7-56) H 04/29/21 04:00 Alkaline Phosphatase 170 units/L (35-129) H 04/29/21 04:00 Ammonia 29.0 umol/L (25-60) 04/20/21 17:10 Total Creatine Kinase 1000 units/L (30-135) H 04/27/21 07:43 CK-MB (CK-2) 36.0 ng/mL (0.0-4.0) H 04/20/21 17:10 CK-MB (CK-2) Rel Index 0.9 (0-4) 04/20/21 17:10 Troponin T 0.021 ng/mL (0.00-0.029) 04/20/21 17:10 Serum Total Protein 5.5 g/dL (6.1-8.1) L 04/22/21 08:59 Total Protein 5.1 g/dL (6.3-8.2) L 04/29/21 04:00 Albumin 1.6 g/dL (3.9-5) L 04/29/21 04:00 Albumin/Globulin Ratio 0.5 % 04/29/21 04:00 Jlhrc-7-Vqanwnraa 0.6 g/dL (0.2-0.3) H 04/22/21 08:59 Dkeiu-8-Eijbzrspx 1.0 g/dL (0.5-0.9) H 04/22/21 08:59 Beta Globulins 0.3 g/dL (0.2-0.5) 04/22/21 08:59 Gamma Globulins 0.6 g/dL (0.8-1.7) L 04/22/21 08:59 Abnorm Protein Band 1 see below 04/22/21 08:59 PEP Interpretation see below H 04/22/21 08:59 TSH 6.040 mlU/mL (0.270-4.200) H 04/20/21 17:10 Free T4 0.93 ng/dL (0.76-1.46) 04/20/21 17:10 Arterial Blood Glucose 167 mg/dL (65-95) H 05/01/21 03:30 Arterial Blood Ionized Calcium 4.5 mg/dL (4.6-5.3) L 04/28/21 05:18 Urine Color Yellow (Yellow) 04/29/21 13:30 Urine Turbidity Turbid (Clear) 04/29/21 13:30 Urine pH 5.0 (5.0-7.0) 04/29/21 13:30 Ur Specific [place] 1.010 (1.003-1.030) 04/29/21 13:30 Urine Protein 100 mg/dl mg/dL (Negative) 04/29/21 13:30 Urine Glucose (UA) 150 mg/dL (Negative) 04/29/21 13:30 Urine Ketones Neg mg/dL (Negative) 04/29/21 13:30 Urine Blood Lg (Negative) 04/29/21 13:30 Urine Nitrite Neg (Negative) 04/29/21 13:30 Urine Bilirubin Neg (Negative) 04/29/21 13:30 Urine Urobilinogen < 2.0 mg/dL (<2.0) 04/29/21 13:30 Ur Leukocyte Esterase Lg (Negative) 04/29/21 13:30 Urine WBC (Auto) > 182.0 /HPF (0.0-6.0) H 04/29/21 13:30 Urine RBC (Auto) > 182.0 /HPF (0.0-6.0) 04/29/21 13:30 U Epithel Cells (Auto) 4.0 /HPF (0-13.0) 04/29/21 13:30 Urine WBC Clumps 3+ /HPF 04/29/21 13:30 Urine Mucus Few /HPF 04/29/21 13:30 Urine Yeast (Budding) 3+ /HPF 04/29/21 13:30 Urine Osmolality 446 Mosm/kg 04/21/21 08:01 Urine Creatinine 44.3 mg/dL (0.1-20.0) H 04/21/21 08:01 Urine Sodium 71 mmol/L 04/21/21 08:01 Urine Total Protein 12 mg/dL (5-11.8) H 04/21/21 08:01 CSF Appearance Clear 04/29/21 11:45 CSF Color Colorless 04/29/21 11:45 CSF WBC 14 /mm3 (1-10) 04/29/21 11:45 CSF RBC 324 /mm3 (0-0) 04/29/21 11:45 CSF Seg Neutrophils 50.0 % (0-6) 04/29/21 11:45 CSF Lymphocytes % 40.0 % (40-80) 04/29/21 11:45 CSF Reactive Lymphs Not Reportable 04/29/21 11:45 CSF Monocytes % 10.0 % (15-45) 04/29/21 11:45 CSF Eosinophils % Not Reportable 04/29/21 11:45 CSF Basophils Not Reportable 04/29/21 11:45 CSF Pathologist Review C 04/29/21 11:45 CSF Glucose 161 mg/dL 04/29/21 11:45 CSF Total Protein 51 mg/dL 04/29/21 11:45 Plasma/Serum Alcohol < 0.01 % (0-0.07) 04/20/21 17:10 Heparin-induced Plt Ab Negative (Negative) 04/24/21 17:29 UF Heparin High Dose 1 % Release 04/24/21 17:29 EFE UFH Low Dose 0.1 0 % Release 04/24/21 17:29 EFE UFH Low Dose 0.5 0 % Release 04/24/21 17:29 Coronavirus (PCR) Negative (Negative) 04/21/21 Unknown Hepatitis A IgM Ab Non-reactive (NonReactive) 04/27/21 12:49 Hep Bs Antigen Nonreactive (Negative) 04/27/21 12:49 Hep B Core IgM Ab Non-reactive (NonReactive) 04/27/21 12:49 Hepatitis C Antibody Non-reactive (NonReactive) 04/27/21 12:49 Microbiology: Microbiology 04/29/21 13:15 Peripheral/Venous Blood Culture - Preliminary NO GROWTH AFTER 24 HOURS 04/29/21 11:56 Tracheal Aspirate Sputum Culture - Preliminary [place]/IV: Voiding Method Indwelling Catheter Active Medications - Current Medications Current Medications: Generic Name Dose Route Start Last Admin Trade Name Freq PRN Reason Stop Dose Admin Acetaminophen 650 mg 04/20/21 21:31 05/01/21 07:40 Acetaminophen 325 Mg Tab PO 650 mg Q4H PRN Administration Pain MILD(1-3)/Fever >100.5/TURCIOS Albuterol 2.5 mg 04/22/21 14:49 04/23/21 15:18 Albuterol 2.5 Mg/3 Ml Nebu IH 2.5 mg Q4HRT PRN Administration Shortness Of Breath Lipase/Protease/Amylase 1 each 04/25/21 14:13 Lipase 10,500/Protease 25,000/Amylase 43,750 (Units) Dr Cap FEEDTUBE PRN PRN For Clogged Feeding Tube Dextrose 50 ml 04/24/21 11:36 Dextrose 50% In Water (25gm) 50 Ml Syringe IV Q30MIN PRN Hypoglycemia Protocol Famotidine 10 mg 04/27/21 10:00 04/30/21 22:15 Famotidine 10 Mg Tab FEEDTUBE 10 mg BID AZIZA Administration Hydralazine HCl 10 mg 04/24/21 21:22 Hydralazine 20 Mg/1 Ml Inj IV Q4HR PRN elevated BP Hydrophilic Ointment 1 applic 04/26/21 11:16 Lip Therapy Vaseline TP Q2HR PRN Dry Lips NORepinephrine/NS 8 MG-250 ML 8 mg in 250 mls @ 3.75 mls/hr 04/26/21 16:00 04/30/21 19:30 Norepinephrine/Ns 8 Mg-250 Ml (Double Conc) IV 2 mcg/min TITRATE AZIZA 3.75 mls/hr Titration Protocol 2 MCG/MIN Cefepime HCl 2 gm in 100 mls @ 200 mls/hr 04/29/21 22:00 04/30/21 22:17 Cefepime/Ns 2 Gm/100 Ml IV 200 mls/hr Q24H AZIZA Administration Protocol Sodium Chloride 100 mls @ 999 mls/hr 04/30/21 11:00 Nacl 0.9% IV MITCH PRN Hypotension Sodium Chloride 100 mls @ 999 mls/hr 04/30/21 12:10 Nacl 0.9% IV MITCH PRN Hypotension Insulin Human Lispro 0 unit 04/25/21 18:00 05/01/21 06:09 Insulin Lispro 100 Unit/Ml SUB-Q 3 unit Q6HR AZIZA Administration Protocol Insulin Human NPH 40 unit 04/30/21 10:00 04/30/21 22:25 Insulin Nph, Human 100 Unit/1 Ml SUB-Q 40 unit Q12HR AZIZA Administration Lorazepam 1 mg 04/26/21 11:15 04/30/21 23:00 Lorazepam 2 Mg/Ml Vial IV 1 mg Q4H PRN Administration Sedation Metoclopramide HCl 5 mg 04/20/21 21:31 Metoclopramide 10 Mg/2 Ml Inj IV Q6H PRN Nausea And Vomiting Multi-Ingred Cream/Lotion/Oil/Oint 1 applic 04/26/21 11:16 Mineral Oil/Petrolatum, White Ophth Oint 3.5 Gm OU Q4HR PRN Dry Eye(s) Ondansetron HCl 4 mg 04/20/21 21:31 Ondansetron 4 Mg/2 Ml Inj IV Q8H PRN Nausea And Vomiting Senna/Docusate Sodium 1 tab 04/26/21 22:00 04/30/21 22:15 Sennosides/Docusate Sodium 8.6/50 Mg Tab FEEDTUBE 1 tab BID AZIZA Administration Simple Syrup 15 ml 04/25/21 14:13 Simple Syrup 15 Ml FEEDTUBE PRN PRN Hypoglycemia Simple Syrup 30 ml 04/25/21 14:13 Simple Syrup 15 Ml FEEDTUBE PRN PRN Hypoglycemia Sodium Bicarbonate 325 mg 04/25/21 14:13 04/27/21 13:00 Sodium Bicarbonate 325 Mg Tab FEEDTUBE 325 mg PRN PRN Administration For Clogged Feeding Tube Sodium Bicarbonate 1,300 mg 04/27/21 14:00 05/01/21 07:41 Sodium Bicarbonate 650 Mg Tab PO 1,300 mg TID AZIZA Administration Sodium Chloride 10 ml 04/20/21 22:00 04/30/21 22:15 Sodium Chloride 0.9% 10 Ml Flush Syringe IV 10 ml BID AZIZA Administration Sodium Chloride 10 ml 04/20/21 21:31 Sodium Chloride 0.9% 10 Ml Flush Syringe IV PRN PRN LINE FLUSH Nutrition/Malnutrition Assess - Dietary Evaluation Nutrition/Malnutrition Findings: Nutrition Notes Start: 04/21/21 12:15 Freq: Status: Active Protocol: Document 04/29/21 14:05 TAMMY (Rec: 04/29/21 14:17 [email or web address] [id number]) Nutrition Notes Initial or Follow up Reassessment Current Diagnosis Acute Kidney Injury, Respiratory Failure, Hyperlipidemia Other Pertinent Diagnosis Acute metabolic encephalopathy , Dehydration, Hyperosmolar non-ketotic state Current Diet TF-Nepro 27 ml/hr Labs/Tests BUN 63 Cr 3.4 BG 249 Elevated LFTs Pertinent Medications Levophed gtt, Senokot Height 5 ft 2 in Weight 72.4 kg [place] Body Weight (kg) 50.00 BMI 29.2 Weight Status Overweight Subjective/Other Information Pt received first HD on 04/27 and second HD yesterday. No HD needed today, per nephrology. HD needs to be assessed daily. Observed Nepro infusing at 45ml/hr at time of visit (12:29). RN informed of correct TF rate. Pt remains on vent support. Percent of energy/protein needs met: 140% energy 100% pro Burn Absent Trauma Absent #1 Nutrition Diagnosis Inadequate oral intake Diagnosis Progress(for reassessment Continues documentation) Is patient on ventilator? Yes Is Patient Ambulatory and/or Out of Bed No REE-([facility]-confined to bed) [phone] Calculation Used for Recommendations [facility] Additional Notes Pro needs >1.2g/kg: >87g/day Fluid needs 1-1.5L/day Nutrition Intervention Nutrition Support: Decrease current TF rate to 32ml/hr and provide 140ml water flush q4h. Kcal 1,382 Protein (gm) 62 Carbohydrates (gm) 124 Fat (gm) 74 Fluid (mL) 558 Fiber (gm) 10 Goal #1 TF tolerance Goal #2 TF to meet at least 75% energy and pro needs Follow-Up By: 05/04/21 Additional Comments F/U: stable TF, vent status, renal function
[2021-04-30] MEDS ORDERED: SODIUM CHLORIDE 0.9% 100 ML IV PRN ×2 (11:00→12:10)
[2021-04-30] MEDS: CEFEPIME/NS 2 GM/100 ML 2 GM/100 ML BAG IV SCH (22:17)
[2021-05-01] MEDS: INSULIN LISPRO 100 UNIT/ML SUB-Q SCH ×4 (00:51→18:16)
--- NOTE | 2021-05-01 05:03 | XRay Report ---
. CHEST - 1 VIEW INDICATION: follow up respiratory failure COMPARISON: Yesterday FINDINGS: SUPPORT DEVICES: Stable support device positioning. HEART: Stable cardiomediastinal silhouette. LUNGS/PLEURA: Moderate patchy multifocal airspace disease throughout the lungs with slightly improve d aeration on today's exam. ADDITIONAL FINDINGS: None. IMPRESSION: Slightly improved aeration of the lungs. Signer Name: Jin Harris MD Signed: 05/01/2021 4:58 AM Workstation Name: [id number]
[2021-05-01 05:44] LABS: Hematocrit 25.6 % (30.3-42.9); Hemoglobin 8.1 gm/dl (10.1-14.3); Mean Corpuscular HGB Conc 32 % (30-34); Mean Corpuscular Volume 83 fl (79-97); Red Blood Count 3.08 M/mm3 (3.65-5.03); Red Cell Distribution Width 16.3 % (13.2-15.2)
[2021-05-01 05:45] LABS: Platelet Count 173 K/mm3 (140-440)
[2021-05-01 06:04] LABS: Calcium 8.3 mg/dL (8.4-10.2)
[2021-05-01] MEDS: ACETAMINOPHEN 325 MG TAB PO PRN ×2 (07:40→18:15)
[2021-05-01] MEDS: SODIUM BICARBONATE 650 MG TAB PO SCH ×3 (07:41→22:06)
--- NOTE | 2021-05-01 09:32 | Progress Note ---
Assessment and Plan - Patient Problems (1) Aspiration into airway Current Visit: Yes Status: Acute (2) Hydrocephalus Current Visit: Yes Status: Acute (3) SYED (acute kidney injury) Current Visit: Yes Status: Acute (4) Acute metabolic encephalopathy Current Visit: Yes Status: Acute (5) Acute renal failure Current Visit: Yes Status: Acute (6) Dehydration Current Visit: Yes Status: Resolved (7) GERD (gastroesophageal reflux disease) Current Visit: Yes Status: Chronic Qualifiers: Esophagitis presence: without esophagitis Qualified Code(s): K21.9 - Gastro-esophageal reflux disease without esophagitis (8) Thrombocytopenia Current Visit: Yes Status: Acute Subjective Principal diagnosis: Acute respiratory failure Interval history: pt on vent still no apparent improvement of mental status Objective Vital Signs - 12hr 04/30/21 04/30/21 04/30/21 21:46 22:00 22:15 Temperature Pulse Rate 110 H 112 H 107 H Pulse Rate [ From Monitor] Respiratory 22 23 17 Rate Blood Pressure 133/70 125/58 117/52 O2 Sat by Pulse 95 86 97 Oximetry 04/30/21 04/30/21 04/30/21 22:30 22:42 22:45 Temperature Pulse Rate 107 H 117 H 112 H Pulse Rate [ From Monitor] Respiratory 23 19 15 Rate Blood Pressure 116/50 116/50 130/51 O2 Sat by Pulse 97 96 96 Oximetry 04/30/21 04/30/21 04/30/21 23:00 23:16 23:30 Temperature Pulse Rate 113 H 109 H 109 H Pulse Rate [ From Monitor] Respiratory 24 18 25 H Rate Blood Pressure 114/51 106/46 106/48 O2 Sat by Pulse 100 95 97 Oximetry 04/30/21 05/01/21 05/01/21 23:45 00:00 00:13 Temperature Pulse Rate 107 H 109 H 108 H Pulse Rate [ 115 H From Monitor] Respiratory 21 15 Rate Blood Pressure 110/42 105/48 126/58 O2 Sat by Pulse 98 98 93 Oximetry 05/01/21 05/01/21 05/01/21 00:15 00:30 00:45 Temperature Pulse Rate 109 H 106 H 108 H Pulse Rate [ From Monitor] Respiratory 14 18 24 Rate Blood Pressure 126/58 97/46 101/44 O2 Sat by Pulse 99 97 98 Oximetry 05/01/21 05/01/21 05/01/21 01:00 01:15 01:30 Temperature 97.8 F Pulse Rate 109 H 107 H 108 H Pulse Rate [ From Monitor] Respiratory 21 19 24 Rate Blood Pressure 107/45 99/50 100/45 O2 Sat by Pulse 98 98 98 Oximetry 05/01/21 05/01/21 05/01/21 01:45 02:00 02:15 Temperature Pulse Rate 107 H 105 H 106 H Pulse Rate [ From Monitor] Respiratory 17 30 H 15 Rate Blood Pressure 101/45 108/46 98/44 O2 Sat by Pulse 98 99 99 Oximetry 05/01/21 05/01/21 05/01/21 02:30 02:45 03:00 Temperature Pulse Rate 104 H 104 H 110 H Pulse Rate [ From Monitor] Respiratory 36 H 21 31 H Rate Blood Pressure 102/40 100/48 103/46 O2 Sat by Pulse 99 99 99 Oximetry 05/01/21 05/01/21 05/01/21 03:15 03:30 03:45 Temperature Pulse Rate 110 H 110 H 112 H Pulse Rate [ From Monitor] Respiratory 27 H 16 22 Rate Blood Pressure 98/50 92/50 104/53 O2 Sat by Pulse 99 99 99 Oximetry 05/01/21 05/01/21 05/01/21 04:00 04:15 04:16 Temperature Pulse Rate 114 H 111 H 111 H Pulse Rate [ 115 H From Monitor] Respiratory 32 H 13 Rate Blood Pressure 98/47 87/54 87/54 O2 Sat by Pulse 95 99 99 Oximetry 05/01/21 05/01/21 05/01/21 04:30 04:45 05:00 Temperature 98.5 F Pulse Rate 112 H 114 H 107 H Pulse Rate [ From Monitor] Respiratory 28 H 28 H 28 H Rate Blood Pressure 88/49 87/46 98/41 O2 Sat by Pulse 99 99 99 Oximetry 05/01/21 05/01/21 05/01/21 05:15 05:30 05:45 Temperature Pulse Rate 108 H 111 H 105 H Pulse Rate [ From Monitor] Respiratory 29 H 30 H 26 H Rate Blood Pressure 94/43 104/53 102/46 O2 Sat by Pulse 99 99 100 Oximetry 05/01/21 05/01/21 05/01/21 06:00 06:15 06:30 Temperature Pulse Rate 107 H 100 H 99 H Pulse Rate [ From Monitor] Respiratory 32 H 21 24 Rate Blood Pressure 105/50 99/44 94/43 O2 Sat by Pulse 99 100 100 Oximetry 05/01/21 05/01/21 05/01/21 06:45 07:00 07:15 Temperature Pulse Rate 96 H 97 H 95 H Pulse Rate [ From Monitor] Respiratory 20 27 H 19 Rate Blood Pressure 101/39 101/39 92/41 O2 Sat by Pulse 100 100 100 Oximetry 05/01/21 05/01/21 05/01/21 07:30 07:31 07:45 Temperature 101.7 F H Pulse Rate Pulse Rate [ From Monitor] Respiratory 23 21 Rate Blood Pressure 92/41 92/41 O2 Sat by Pulse 100 99 Oximetry 05/01/21 08:00 Temperature Pulse Rate 97 H Pulse Rate [ 102 H From Monitor] Respiratory 12 Rate Blood Pressure 92/41 O2 Sat by Pulse 100 Oximetry Constitutional: other (critically ill, somnolent, on vent) Eyes: non-icteric ENT: oropharynx dry Effort: other (tachypneic but not labored) Ascultation: Bilateral: clear Cardiovascular: regular rate and rhythm Gastrointestinal: normoactive bowel sounds, soft, non-tender, non-distended Integumentary: normal Extremities: no cyanosis, no edema, pink and warm Neurologic: unable to assess Psychiatric: other (unable to assess) CBC and BMP: 05/01/21 04:00 05/01/21 04:00 ABG, PT/INR, D-dimer: ABG ABG pH 7.493 (7.320-7.450) H 05/01/21 03:30 POC ABG pCO2 33.3 mmHg (32.0-48.0) 05/01/21 03:30 ABG pCO2 31.6 mm Hg 04/21/21 15:47 POC ABG pO2 89.9 mmHg (83-108) 05/01/21 03:30 ABG pO2 168.1 mm Hg (80.0-90.0) H 04/21/21 15:47 POC ABG HCO3 25.0 05/01/21 03:30 ABG O2 Saturation 97.1 (0-100) 05/01/21 03:30 PT/INR, D-dimer PT 15.3 Sec. (12.2-14.9) H 04/28/21 05:00 INR 1.09 (0.87-1.13) 04/28/21 05:00 Abnormal lab findings: Abnormal Labs 04/20/21 04/20/21 04/20/21 17:10 17:10 17:10 WBC 17.4 H RBC 5.19 H Hgb Hct 46.8 H MCH 27 L RDW 17.2 H Plt Count Seg Neuts % (Manual) 98.0 H Lymphocytes % (Manual) 2.0 L Nucleated RBC % 1.0 H Seg Neutrophils # Man 17.1 H Lymphocytes # (Manual) 0.3 L PT ABG pH POC ABG pCO2 POC ABG pO2 ABG pO2 ABG O2 Saturation ABG Base Excess ABG Hemoglobin ABG Oxyhemoglobin ABG Potassium ABG Chloride ABG Glucose Oxyhemoglobin Carboxyhemoglobin Sodium 173 H* Potassium Chloride 132.9 H Carbon Dioxide 17 L BUN 120 H Creatinine 4.2 H Glucose 762 H* POC Glucose Hemoglobin A1c Lactic Acid Calcium Phosphorus Magnesium 3.80 H Transferrin AST 72 H ALT 63 H Alkaline Phosphatase 148 H Total Creatine Kinase 3697 H CK-MB (CK-2) 36.0 H Serum Total Protein Total Protein Albumin 2.2 L Ozurc-4-Socsohwkw Twtdj-0-Cpyueoeus Gamma Globulins PEP Interpretation TSH Arterial Blood Glucose Arterial Blood Ionized Calcium Urine WBC (Auto) Urine Creatinine Urine Total Protein 04/20/21 04/20/21 04/20/21 17:10 17:10 18:55 WBC RBC Hgb Hct MCH RDW Plt Count Seg Neuts % (Manual) Lymphocytes % (Manual) Nucleated RBC % Seg Neutrophils # Man Lymphocytes # (Manual) PT ABG pH POC ABG pCO2 POC ABG pO2 ABG pO2 ABG O2 Saturation ABG Base Excess ABG Hemoglobin ABG Oxyhemoglobin ABG Potassium ABG Chloride ABG Glucose Oxyhemoglobin Carboxyhemoglobin Sodium Potassium Chloride Carbon Dioxide BUN Creatinine Glucose POC Glucose 574 H Hemoglobin A1c Lactic Acid 2.60 H* Calcium Phosphorus Magnesium Transferrin AST ALT Alkaline Phosphatase Total Creatine Kinase CK-MB (CK-2) Serum Total Protein Total Protein Albumin Jvemi-7-Haywjfvaj Wglct-8-Lkxyhxjqm Gamma Globulins PEP Interpretation TSH 6.040 H Arterial Blood Glucose Arterial Blood Ionized Calcium Urine WBC (Auto) Urine Creatinine Urine Total Protein 04/20/21 04/20/21 04/21/21 22:58 22:58 00:14 WBC RBC Hgb Hct MCH RDW Plt Count Seg Neuts % (Manual) Lymphocytes % (Manual) Nucleated RBC % Seg Neutrophils # Man Lymphocytes # (Manual) PT ABG pH POC ABG pCO2 POC ABG pO2 ABG pO2 ABG O2 Saturation ABG Base Excess ABG Hemoglobin ABG Oxyhemoglobin ABG Potassium ABG Chloride ABG Glucose Oxyhemoglobin Carboxyhemoglobin Sodium 172 H* Potassium 3.2 L Chloride 134.2 H Carbon Dioxide 17 L BUN 112 H Creatinine 3.8 H Glucose 803 H* POC Glucose > 600 H Hemoglobin A1c Lactic Acid Calcium 8.3 L Phosphorus Magnesium 3.50 H Transferrin AST ALT Alkaline Phosphatase Total Creatine Kinase CK-MB (CK-2) Serum Total Protein Total Protein Albumin Yowde-9-Cwpvldybv Lwdju-8-Jmhknbhfe Gamma Globulins PEP Interpretation TSH Arterial Blood Glucose Arterial Blood Ionized Calcium Urine WBC (Auto) Urine Creatinine Urine Total Protein 04/21/21 04/21/21 04/21/21 00:22 02:01 03:11 WBC RBC Hgb Hct MCH RDW Plt Count Seg Neuts % (Manual) Lymphocytes % (Manual) Nucleated RBC % Seg Neutrophils # Man Lymphocytes # (Manual) PT ABG pH POC ABG pCO2 POC ABG pO2 ABG pO2 ABG O2 Saturation ABG Base Excess ABG Hemoglobin ABG Oxyhemoglobin ABG Potassium ABG Chloride ABG Glucose Oxyhemoglobin Carboxyhemoglobin Sodium 176 H* 175 H* Potassium 2.9 L* 3.0 L Chloride 139.9 H 136.2 H Carbon Dioxide 17 L 19 L BUN 113 H 112 H Creatinine 3.9 H 3.6 H Glucose 729 H* 582 H* POC Glucose 404 H Hemoglobin A1c Lactic Acid Calcium Phosphorus Magnesium Transferrin AST ALT Alkaline Phosphatase Total Creatine Kinase CK-MB (CK-2) Serum Total Protein Total Protein Albumin Yjzrz-0-Mamktcpmo Jrlku-3-Ocppdsczw Gamma Globulins PEP Interpretation TSH Arterial Blood Glucose Arterial Blood Ionized Calcium Urine WBC (Auto) Urine Creatinine Urine Total Protein 04/21/21 04/21/21 04/21/21 03:20 03:41 03:41 WBC 14.1 H RBC Hgb Hct MCH 27 L RDW 16.8 H Plt Count 114 L Seg Neuts % (Manual) 97.0 H Lymphocytes % (Manual) 3.0 L Nucleated RBC % 1.0 H Seg Neutrophils # Man 13.7 H Lymphocytes # (Manual) 0.4 L PT ABG pH POC ABG pCO2 POC ABG pO2 ABG pO2 52.3 L ABG O2 Saturation 84.5 L ABG Base Excess -2.9 L ABG Hemoglobin ABG Oxyhemoglobin ABG Potassium ABG Chloride ABG Glucose Oxyhemoglobin 82.9 L Carboxyhemoglobin Sodium 179 H* Potassium 2.9 L* Chloride 138.2 H Carbon Dioxide 20 L BUN 111 H Creatinine 3.7 H Glucose 465 H POC Glucose Hemoglobin A1c Lactic Acid Calcium Phosphorus Magnesium Transferrin AST 73 H ALT 61 H Alkaline Phosphatase 144 H Total Creatine Kinase CK-MB (CK-2) Serum Total Protein Total Protein Albumin 2.5 L Qxfzr-0-Gzhjzcymb Ezkuk-0-Mvabopvxa Gamma Globulins PEP Interpretation TSH Arterial Blood Glucose Arterial Blood Ionized Calcium Urine WBC (Auto) Urine Creatinine Urine Total Protein 04/21/21 04/21/21 04/21/21 04:24 05:45 06:47 WBC RBC Hgb Hct MCH RDW Plt Count Seg Neuts % (Manual) Lymphocytes % (Manual) Nucleated RBC % Seg Neutrophils # Man Lymphocytes # (Manual) PT ABG pH POC ABG pCO2 POC ABG pO2 ABG pO2 ABG O2 Saturation ABG Base Excess ABG Hemoglobin ABG Oxyhemoglobin ABG Potassium ABG Chloride ABG Glucose Oxyhemoglobin Carboxyhemoglobin Sodium Potassium Chloride Carbon Dioxide BUN Creatinine Glucose POC Glucose 353 H 280 H 260 H Hemoglobin A1c Lactic Acid Calcium Phosphorus Magnesium Transferrin AST ALT Alkaline Phosphatase Total Creatine Kinase CK-MB (CK-2) Serum Total Protein Total Protein Albumin Cnloy-0-Zwirxefoa Mggii-1-Fssqhafyy Gamma Globulins PEP Interpretation TSH Arterial Blood Glucose Arterial Blood Ionized Calcium Urine WBC (Auto) Urine Creatinine Urine Total Protein 04/21/21 04/21/21 04/21/21 08:01 11:11 12:51 WBC RBC Hgb Hct MCH RDW Plt Count Seg Neuts % (Manual) Lymphocytes % (Manual) Nucleated RBC % Seg Neutrophils # Man Lymphocytes # (Manual) PT ABG pH POC ABG pCO2 POC ABG pO2 ABG pO2 ABG O2 Saturation ABG Base Excess ABG Hemoglobin ABG Oxyhemoglobin ABG Potassium ABG Chloride ABG Glucose Oxyhemoglobin Carboxyhemoglobin Sodium Potassium Chloride Carbon Dioxide BUN Creatinine Glucose POC Glucose 68 L 146 H Hemoglobin A1c Lactic Acid Calcium Phosphorus Magnesium Transferrin AST ALT Alkaline Phosphatase Total Creatine Kinase CK-MB (CK-2) Serum Total Protein Total Protein Albumin Jbvnd-4-Wmuuevhwq Hxvwp-1-Dlkdjgcoo Gamma Globulins PEP Interpretation TSH Arterial Blood Glucose Arterial Blood Ionized Calcium Urine WBC (Auto) Urine Creatinine 44.3 H Urine Total Protein 12 H 04/21/21 04/21/21 04/21/21 13:41 14:40 15:47 WBC RBC Hgb Hct MCH RDW Plt Count Seg Neuts % (Manual) Lymphocytes % (Manual) Nucleated RBC % Seg Neutrophils # Man Lymphocytes # (Manual) PT ABG pH 7.275 L 7.486 H POC ABG pCO2 POC ABG pO2 63.4 L ABG pO2 168.1 H ABG O2 Saturation 99.1 H ABG Base Excess ABG Hemoglobin 8.4 L 8.9 L ABG Oxyhemoglobin 89.5 L ABG Potassium ABG Chloride 108.0 H ABG Glucose 404 H Oxyhemoglobin Carboxyhemoglobin Sodium Potassium Chloride Carbon Dioxide BUN Creatinine Glucose POC Glucose 186 H Hemoglobin A1c Lactic Acid Calcium Phosphorus Magnesium Transferrin AST ALT Alkaline Phosphatase Total Creatine Kinase CK-MB (CK-2) Serum Total Protein Total Protein Albumin Hsdnt-4-Xkhwrablc Kqlcj-1-Liznkcgiu Gamma Globulins PEP Interpretation TSH Arterial Blood Glucose 404 H Arterial Blood Ionized Calcium Urine WBC (Auto) Urine Creatinine Urine Total Protein 04/21/21 04/21/21 04/21/21 16:25 17:57 18:49 WBC RBC Hgb Hct MCH RDW Plt Count Seg Neuts % (Manual) Lymphocytes % (Manual) Nucleated RBC % Seg Neutrophils # Man Lymphocytes # (Manual) PT ABG pH POC ABG pCO2 POC ABG pO2 ABG pO2 ABG O2 Saturation ABG Base Excess ABG Hemoglobin ABG Oxyhemoglobin ABG Potassium ABG Chloride ABG Glucose Oxyhemoglobin Carboxyhemoglobin Sodium 174 H* Potassium 7.2 H* D Chloride 138.2 H Carbon Dioxide 21 L BUN 99 H Creatinine 4.0 H Glucose 157 H POC Glucose 172 H 143 H Hemoglobin A1c Lactic Acid Calcium Phosphorus Magnesium Transferrin AST 134 H ALT 71 H Alkaline Phosphatase 135 H Total Creatine Kinase 3504 H CK-MB (CK-2) Serum Total Protein Total Protein Albumin 2.2 L Taccl-1-Nmtdsmqqf Cxkhn-4-Gjzjuqugv Gamma Globulins PEP Interpretation TSH Arterial Blood Glucose Arterial Blood Ionized Calcium Urine WBC (Auto) Urine Creatinine Urine Total Protein 04/21/21 04/21/21 04/21/21 19:10 20:26 20:53 WBC RBC Hgb Hct MCH RDW Plt Count Seg Neuts % (Manual) Lymphocytes % (Manual) Nucleated RBC % Seg Neutrophils # Man Lymphocytes # (Manual) PT ABG pH POC ABG pCO2 POC ABG pO2 ABG pO2 ABG O2 Saturation ABG Base Excess ABG Hemoglobin ABG Oxyhemoglobin ABG Potassium ABG Chloride ABG Glucose Oxyhemoglobin Carboxyhemoglobin Sodium Potassium Chloride Carbon Dioxide BUN Creatinine Glucose POC Glucose 126 H 190 H 116 H Hemoglobin A1c Lactic Acid Calcium Phosphorus Magnesium Transferrin AST ALT Alkaline Phosphatase Total Creatine Kinase CK-MB (CK-2) Serum Total Protein Total Protein Albumin Xaxnr-1-Gzvlalmvo Cjvyd-9-Mfyltyyoi Gamma Globulins PEP Interpretation TSH Arterial Blood Glucose Arterial Blood Ionized Calcium Urine WBC (Auto) Urine Creatinine Urine Total Protein 04/21/21 04/21/21 04/21/21 21:52 22:55 23:00 WBC RBC Hgb Hct MCH RDW Plt Count Seg Neuts % (Manual) Lymphocytes % (Manual) Nucleated RBC % Seg Neutrophils # Man Lymphocytes # (Manual) PT ABG pH POC ABG pCO2 POC ABG pO2 ABG pO2 ABG O2 Saturation ABG Base Excess ABG Hemoglobin ABG Oxyhemoglobin ABG Potassium ABG Chloride ABG Glucose Oxyhemoglobin Carboxyhemoglobin Sodium 176 H* Potassium Chloride 140.0 H Carbon Dioxide 20 L BUN 98 H Creatinine 3.9 H Glucose 206 H POC Glucose 135 H 158 H Hemoglobin A1c Lactic Acid Calcium Phosphorus Magnesium Transferrin AST ALT Alkaline Phosphatase Total Creatine Kinase 3240 H CK-MB (CK-2) Serum Total Protein Total Protein Albumin Pusfy-2-Rmbikxvpx Fjodk-8-Ipknurcvt Gamma Globulins PEP Interpretation TSH Arterial Blood Glucose Arterial Blood Ionized Calcium Urine WBC (Auto) Urine Creatinine Urine Total Protein 04/22/21 04/22/21 04/22/21 00:01 00:39 00:58 WBC RBC Hgb Hct MCH RDW Plt Count Seg Neuts % (Manual) Lymphocytes % (Manual) Nucleated RBC % Seg Neutrophils # Man Lymphocytes # (Manual) PT ABG pH POC ABG pCO2 POC ABG pO2 ABG pO2 ABG O2 Saturation ABG Base Excess ABG Hemoglobin ABG Oxyhemoglobin ABG Potassium ABG Chloride ABG Glucose Oxyhemoglobin Carboxyhemoglobin Sodium 171 H* Potassium Chloride Carbon Dioxide BUN Creatinine Glucose POC Glucose 182 H 176 H Hemoglobin A1c Lactic Acid Calcium Phosphorus Magnesium Transferrin AST ALT Alkaline Phosphatase Total Creatine Kinase CK-MB (CK-2) Serum Total Protein Total Protein Albumin Oyknv-2-Zyjpjwppp Gefqf-4-Qpaottyzy Gamma Globulins PEP Interpretation TSH Arterial Blood Glucose Arterial Blood Ionized Calcium Urine WBC (Auto) Urine Creatinine Urine Total Protein 04/22/21 04/22/21 04/22/21 01:04 04:52 06:07 WBC 11.2 H RBC Hgb Hct 44.3 H MCH 27 L RDW 17.1 H Plt Count 86 L Seg Neuts % (Manual) 86.0 H Lymphocytes % (Manual) 13.0 L Nucleated RBC % Seg Neutrophils # Man 9.6 H Lymphocytes # (Manual) PT ABG pH POC ABG pCO2 POC ABG pO2 ABG pO2 ABG O2 Saturation ABG Base Excess ABG Hemoglobin ABG Oxyhemoglobin ABG Potassium ABG Chloride ABG Glucose Oxyhemoglobin Carboxyhemoglobin Sodium Potassium Chloride Carbon Dioxide BUN Creatinine Glucose POC Glucose 143 H 206 H Hemoglobin A1c Lactic Acid Calcium Phosphorus Magnesium Transferrin AST ALT Alkaline Phosphatase Total Creatine Kinase CK-MB (CK-2) Serum Total Protein Total Protein Albumin Hqbih-8-Wrkrbdvsf Zbqqg-0-Pdhuqzzsj Gamma Globulins PEP Interpretation TSH Arterial Blood Glucose Arterial Blood Ionized Calcium Urine WBC (Auto) Urine Creatinine Urine Total Protein 04/22/21 04/22/21 04/22/21 06:09 07:18 08:59 WBC RBC Hgb Hct MCH RDW Plt Count Seg Neuts % (Manual) Lymphocytes % (Manual) Nucleated RBC % Seg Neutrophils # Man Lymphocytes # (Manual) PT ABG pH POC ABG pCO2 POC ABG pO2 ABG pO2 ABG O2 Saturation ABG Base Excess ABG Hemoglobin ABG Oxyhemoglobin ABG Potassium ABG Chloride ABG Glucose Oxyhemoglobin Carboxyhemoglobin Sodium Potassium Chloride Carbon Dioxide BUN Creatinine Glucose POC Glucose 163 H 158 H Hemoglobin A1c Lactic Acid Calcium Phosphorus Magnesium Transferrin AST ALT Alkaline Phosphatase Total Creatine Kinase 3105 H CK-MB (CK-2) Serum Total Protein Total Protein Albumin Nktzc-6-Gixmpbidp Xxckc-2-Vmvyujedj Gamma Globulins PEP Interpretation TSH Arterial Blood Glucose Arterial Blood Ionized Calcium Urine WBC (Auto) Urine Creatinine Urine Total Protein 04/22/21 04/22/21 04/22/21 08:59 08:59 09:44 WBC RBC Hgb Hct MCH RDW Plt Count Seg Neuts % (Manual) Lymphocytes % (Manual) Nucleated RBC % Seg Neutrophils # Man Lymphocytes # (Manual) PT ABG pH POC ABG pCO2 POC ABG pO2 ABG pO2 ABG O2 Saturation ABG Base Excess ABG Hemoglobin ABG Oxyhemoglobin ABG Potassium ABG Chloride ABG Glucose Oxyhemoglobin Carboxyhemoglobin Sodium 169 H* Potassium 3.5 L Chloride 134.5 H Carbon Dioxide 20 L BUN 95 H Creatinine 3.6 H Glucose 151 H POC Glucose Hemoglobin A1c Lactic Acid Calcium Phosphorus Magnesium 2.80 H Transferrin AST 121 H ALT 75 H Alkaline Phosphatase 137 H Total Creatine Kinase CK-MB (CK-2) Serum Total Protein 5.5 L Total Protein 6.0 L Albumin 2.8 L 2.1 L Jqyma-4-Fcmkcqstr 0.6 H Olrsx-4-Wojcxpyuv 1.0 H Gamma Globulins 0.6 L PEP Interpretation see below H TSH Arterial Blood Glucose Arterial Blood Ionized Calcium Urine WBC (Auto) Urine Creatinine Urine Total Protein 04/22/21 04/22/21 04/22/21 10:24 12:20 13:19 WBC RBC Hgb Hct MCH RDW Plt Count Seg Neuts % (Manual) Lymphocytes % (Manual) Nucleated RBC % Seg Neutrophils # Man Lymphocytes # (Manual) PT ABG pH POC ABG pCO2 POC ABG pO2 ABG pO2 ABG O2 Saturation ABG Base Excess ABG Hemoglobin ABG Oxyhemoglobin ABG Potassium ABG Chloride ABG Glucose Oxyhemoglobin Carboxyhemoglobin Sodium Potassium Chloride Carbon Dioxide BUN Creatinine Glucose POC Glucose 107 H 131 H 147 H Hemoglobin A1c Lactic Acid Calcium Phosphorus Magnesium Transferrin AST ALT Alkaline Phosphatase Total Creatine Kinase CK-MB (CK-2) Serum Total Protein Total Protein Albumin Pjrty-3-Kuipbbfuz Ymyji-4-Hrvvpnidr Gamma Globulins PEP Interpretation TSH Arterial Blood Glucose Arterial Blood Ionized Calcium Urine WBC (Auto) Urine Creatinine Urine Total Protein 04/22/21 04/22/21 04/22/21 14:16 15:22 15:55 WBC RBC Hgb Hct MCH RDW Plt Count Seg Neuts % (Manual) Lymphocytes % (Manual) Nucleated RBC % Seg Neutrophils # Man Lymphocytes # (Manual) PT ABG pH POC ABG pCO2 POC ABG pO2 ABG pO2 ABG O2 Saturation ABG Base Excess ABG Hemoglobin ABG Oxyhemoglobin ABG Potassium ABG Chloride ABG Glucose Oxyhemoglobin Carboxyhemoglobin Sodium 169 H* Potassium Chloride 133.5 H Carbon Dioxide 19 L BUN 94 H Creatinine 3.8 H Glucose 150 H POC Glucose 154 H 136 H Hemoglobin A1c Lactic Acid Calcium Phosphorus Magnesium Transferrin AST ALT Alkaline Phosphatase Total Creatine Kinase CK-MB (CK-2) Serum Total Protein Total Protein Albumin Xcnsk-7-Xawgmhikt Kbzmv-0-Rimdmjjbj Gamma Globulins PEP Interpretation TSH Arterial Blood Glucose Arterial Blood Ionized Calcium Urine WBC (Auto) Urine Creatinine Urine Total Protein 04/22/21 04/22/21 04/22/21 15:55 16:22 18:11 WBC RBC Hgb Hct MCH RDW Plt Count Seg Neuts % (Manual) Lymphocytes % (Manual) Nucleated RBC % Seg Neutrophils # Man Lymphocytes # (Manual) PT ABG pH POC ABG pCO2 POC ABG pO2 ABG pO2 ABG O2 Saturation ABG Base Excess ABG Hemoglobin ABG Oxyhemoglobin ABG Potassium ABG Chloride ABG Glucose Oxyhemoglobin Carboxyhemoglobin Sodium Potassium Chloride Carbon Dioxide BUN Creatinine Glucose POC Glucose 140 H Hemoglobin A1c 17.1 H Lactic Acid Calcium Phosphorus Magnesium Transferrin AST ALT Alkaline Phosphatase Total Creatine Kinase 2497 H CK-MB (CK-2) Serum Total Protein Total Protein Albumin Iutsr-9-Ccsucvtzq Ipecg-4-Wwhubfqse Gamma Globulins PEP Interpretation TSH Arterial Blood Glucose Arterial Blood Ionized Calcium Urine WBC (Auto) Urine Creatinine Urine Total Protein 04/22/21 04/22/21 04/23/21 18:26 23:19 00:27 WBC RBC Hgb Hct MCH RDW Plt Count Seg Neuts % (Manual) Lymphocytes % (Manual) Nucleated RBC % Seg Neutrophils # Man Lymphocytes # (Manual) PT ABG pH POC ABG pCO2 POC ABG pO2 ABG pO2 ABG O2 Saturation ABG Base Excess ABG Hemoglobin ABG Oxyhemoglobin ABG Potassium ABG Chloride ABG Glucose Oxyhemoglobin Carboxyhemoglobin Sodium 162 H* Potassium Chloride Carbon Dioxide BUN Creatinine Glucose POC Glucose 146 H 188 H Hemoglobin A1c Lactic Acid Calcium Phosphorus Magnesium Transferrin AST ALT Alkaline Phosphatase Total Creatine Kinase CK-MB (CK-2) Serum Total Protein Total Protein Albumin Kmqxl-1-Guquadusw Ekaoy-3-Gbfvfausl Gamma Globulins PEP Interpretation TSH Arterial Blood Glucose Arterial Blood Ionized Calcium Urine WBC (Auto) Urine Creatinine Urine Total Protein 04/23/21 04/23/21 04/23/21 05:23 07:50 08:13 WBC RBC Hgb Hct MCH RDW Plt Count Seg Neuts % (Manual) Lymphocytes % (Manual) Nucleated RBC % Seg Neutrophils # Man Lymphocytes # (Manual) PT ABG pH POC ABG pCO2 POC ABG pO2 ABG pO2 ABG O2 Saturation ABG Base Excess ABG Hemoglobin ABG Oxyhemoglobin ABG Potassium ABG Chloride ABG Glucose Oxyhemoglobin Carboxyhemoglobin Sodium Potassium Chloride Carbon Dioxide BUN Creatinine Glucose POC Glucose 212 H 239 H Hemoglobin A1c Lactic Acid Calcium Phosphorus Magnesium Transferrin AST ALT Alkaline Phosphatase Total Creatine Kinase 1803 H CK-MB (CK-2) Serum Total Protein Total Protein Albumin Blqab-6-Rdlgmxvjk Ssoca-4-Ijziilrro Gamma Globulins PEP Interpretation TSH Arterial Blood Glucose Arterial Blood Ionized Calcium Urine WBC (Auto) Urine Creatinine Urine Total Protein 04/23/21 04/23/21 04/23/21 08:13 08:13 12:06 WBC 11.9 H RBC Hgb Hct MCH 26 L RDW 16.5 H Plt Count 72 L Seg Neuts % (Manual) 80.0 H Lymphocytes % (Manual) 5.0 L Nucleated RBC % Seg Neutrophils # Man 9.5 H Lymphocytes # (Manual) 0.6 L PT ABG pH POC ABG pCO2 POC ABG pO2 ABG pO2 ABG O2 Saturation ABG Base Excess ABG Hemoglobin ABG Oxyhemoglobin ABG Potassium ABG Chloride ABG Glucose Oxyhemoglobin Carboxyhemoglobin Sodium 164 H* Potassium Chloride 128.0 H Carbon Dioxide 21 L BUN 93 H Creatinine 3.8 H Glucose 293 H POC Glucose 311 H Hemoglobin A1c Lactic Acid Calcium Phosphorus Magnesium Transferrin AST 99 H ALT 70 H Alkaline Phosphatase 147 H Total Creatine Kinase CK-MB (CK-2) Serum Total Protein Total Protein 6.1 L Albumin 2.0 L Rtgfd-9-Updtubmbv Nbwdd-6-Rlcbygzmo Gamma Globulins PEP Interpretation TSH Arterial Blood Glucose Arterial Blood Ionized Calcium Urine WBC (Auto) Urine Creatinine Urine Total Protein 04/23/21 04/23/21 04/24/21 17:35 18:17 02:13 WBC RBC Hgb Hct MCH RDW Plt Count Seg Neuts % (Manual) Lymphocytes % (Manual) Nucleated RBC % Seg Neutrophils # Man Lymphocytes # (Manual) PT ABG pH POC ABG pCO2 POC ABG pO2 ABG pO2 ABG O2 Saturation ABG Base Excess ABG Hemoglobin ABG Oxyhemoglobin ABG Potassium ABG Chloride ABG Glucose Oxyhemoglobin Carboxyhemoglobin Sodium 160 H 160 H Potassium Chloride Carbon Dioxide BUN Creatinine Glucose POC Glucose 370 H Hemoglobin A1c Lactic Acid Calcium Phosphorus Magnesium Transferrin AST ALT Alkaline Phosphatase Total Creatine Kinase CK-MB (CK-2) Serum Total Protein Total Protein Albumin Mdhfw-5-Pcatxpzjc Wirwd-0-Psisrkfof Gamma Globulins PEP Interpretation TSH Arterial Blood Glucose Arterial Blood Ionized Calcium Urine WBC (Auto) Urine Creatinine Urine Total Protein 04/24/21 04/24/21 04/24/21 06:00 06:00 07:46 WBC RBC Hgb Hct MCH 27 L RDW 17.0 H Plt Count 58 L Seg Neuts % (Manual) Lymphocytes % (Manual) 2.0 L Nucleated RBC % Seg Neutrophils # Man 8.9 H Lymphocytes # (Manual) 0.2 L PT ABG pH POC ABG pCO2 POC ABG pO2 ABG pO2 ABG O2 Saturation ABG Base Excess ABG Hemoglobin ABG Oxyhemoglobin ABG Potassium ABG Chloride ABG Glucose Oxyhemoglobin Carboxyhemoglobin Sodium Potassium Chloride Carbon Dioxide BUN Creatinine Glucose POC Glucose 395 H Hemoglobin A1c Lactic Acid Calcium Phosphorus Magnesium 2.90 H Transferrin AST ALT Alkaline Phosphatase Total Creatine Kinase CK-MB (CK-2) Serum Total Protein Total Protein Albumin Ulpio-4-Aiomcogdc Mqhnv-7-Omlkebbxc Gamma Globulins PEP Interpretation TSH Arterial Blood Glucose Arterial Blood Ionized Calcium Urine WBC (Auto) Urine Creatinine Urine Total Protein 04/24/21 04/24/21 04/24/21 08:15 11:34 13:11 WBC RBC Hgb Hct MCH RDW Plt Count Seg Neuts % (Manual) Lymphocytes % (Manual) Nucleated RBC % Seg Neutrophils # Man Lymphocytes # (Manual) PT ABG pH POC ABG pCO2 POC ABG pO2 ABG pO2 ABG O2 Saturation ABG Base Excess ABG Hemoglobin ABG Oxyhemoglobin ABG Potassium ABG Chloride ABG Glucose Oxyhemoglobin Carboxyhemoglobin Sodium 159 H Potassium Chloride 125.6 H Carbon Dioxide 19 L BUN 94 H Creatinine 3.7 H Glucose 514 H* POC Glucose 422 H 384 H Hemoglobin A1c Lactic Acid Calcium Phosphorus Magnesium Transferrin AST ALT 61 H Alkaline Phosphatase 155 H Total Creatine Kinase CK-MB (CK-2) Serum Total Protein Total Protein 6.1 L Albumin 1.5 L Yeahq-6-Vvvsamreh Flybe-1-Bblisbmtz Gamma Globulins PEP Interpretation TSH Arterial Blood Glucose Arterial Blood Ionized Calcium Urine WBC (Auto) Urine Creatinine Urine Total Protein 04/24/21 04/24/21 04/24/21 14:01 15:03 17:29 WBC RBC Hgb Hct MCH RDW Plt Count Seg Neuts % (Manual) Lymphocytes % (Manual) Nucleated RBC % Seg Neutrophils # Man Lymphocytes # (Manual) PT ABG pH POC ABG pCO2 POC ABG pO2 ABG pO2 ABG O2 Saturation ABG Base Excess ABG Hemoglobin ABG Oxyhemoglobin ABG Potassium ABG Chloride ABG Glucose Oxyhemoglobin Carboxyhemoglobin Sodium Potassium Chloride Carbon Dioxide BUN Creatinine Glucose POC Glucose 423 H 418 H Hemoglobin A1c Lactic Acid Calcium Phosphorus Magnesium Transferrin 112 L AST ALT Alkaline Phosphatase Total Creatine Kinase CK-MB (CK-2) Serum Total Protein Total Protein Albumin Hrzhd-9-Xbdzjkiof Fxnlz-3-Ebrrfpvwz Gamma Globulins PEP Interpretation TSH Arterial Blood Glucose Arterial Blood Ionized Calcium Urine WBC (Auto) Urine Creatinine Urine Total Protein 04/24/21 04/24/21 04/24/21 18:28 19:41 22:33 WBC RBC Hgb Hct MCH RDW Plt Count Seg Neuts % (Manual) Lymphocytes % (Manual) Nucleated RBC % Seg Neutrophils # Man Lymphocytes # (Manual) PT ABG pH POC ABG pCO2 POC ABG pO2 ABG pO2 ABG O2 Saturation ABG Base Excess ABG Hemoglobin ABG Oxyhemoglobin ABG Potassium ABG Chloride ABG Glucose Oxyhemoglobin Carboxyhemoglobin Sodium Potassium Chloride Carbon Dioxide BUN Creatinine Glucose POC Glucose 335 H 321 H 349 H Hemoglobin A1c Lactic Acid Calcium Phosphorus Magnesium Transferrin AST ALT Alkaline Phosphatase Total Creatine Kinase CK-MB (CK-2) Serum Total Protein Total Protein Albumin Wylcr-3-Auctwfjtn Nvmch-2-Yhkkgbmek Gamma Globulins PEP Interpretation TSH Arterial Blood Glucose Arterial Blood Ionized Calcium Urine WBC (Auto) Urine Creatinine Urine Total Protein 04/25/21 04/25/21 04/25/21 01:28 02:28 03:25 WBC RBC Hgb Hct MCH RDW Plt Count Seg Neuts % (Manual) Lymphocytes % (Manual) Nucleated RBC % Seg Neutrophils # Man Lymphocytes # (Manual) PT ABG pH POC ABG pCO2 POC ABG pO2 ABG pO2 ABG O2 Saturation ABG Base Excess ABG Hemoglobin ABG Oxyhemoglobin ABG Potassium ABG Chloride ABG Glucose Oxyhemoglobin Carboxyhemoglobin Sodium Potassium Chloride Carbon Dioxide BUN Creatinine Glucose POC Glucose 283 H 247 H 196 H Hemoglobin A1c Lactic Acid Calcium Phosphorus Magnesium Transferrin AST ALT Alkaline Phosphatase Total Creatine Kinase CK-MB (CK-2) Serum Total Protein Total Protein Albumin Czjib-9-Yegqdeukg Fherd-6-Mrtjfjigf Gamma Globulins PEP Interpretation TSH Arterial Blood Glucose Arterial Blood Ionized Calcium Urine WBC (Auto) Urine Creatinine Urine Total Protein 01/03/22 01/03/22 01/03/22 04:22 05:40 05:45 WBC RBC Hgb Hct MCH 27 L RDW 17.0 H Plt Count 64 L Seg Neuts % (Manual) 84.0 H Lymphocytes % (Manual) 6.0 L Nucleated RBC % 1.0 H Seg Neutrophils # Man Lymphocytes # (Manual) 0.4 L PT ABG pH POC ABG pCO2 POC ABG pO2 ABG pO2 ABG O2 Saturation ABG Base Excess ABG Hemoglobin ABG Oxyhemoglobin ABG Potassium ABG Chloride ABG Glucose Oxyhemoglobin Carboxyhemoglobin Sodium Potassium Chloride Carbon Dioxide BUN Creatinine Glucose POC Glucose 207 H 204 H Hemoglobin A1c Lactic Acid Calcium Phosphorus Magnesium Transferrin AST ALT Alkaline Phosphatase Total Creatine Kinase CK-MB (CK-2) Serum Total Protein Total Protein Albumin Tfagt-1-Yllperxji Zemyy-1-Ysmmrsejf Gamma Globulins PEP Interpretation TSH Arterial Blood Glucose Arterial Blood Ionized Calcium Urine WBC (Auto) Urine Creatinine Urine Total Protein 04/25/21 04/25/21 04/25/21 06:43 07:37 08:11 WBC RBC Hgb Hct MCH RDW Plt Count Seg Neuts % (Manual) Lymphocytes % (Manual) Nucleated RBC % Seg Neutrophils # Man Lymphocytes # (Manual) PT ABG pH POC ABG pCO2 POC ABG pO2 ABG pO2 ABG O2 Saturation ABG Base Excess ABG Hemoglobin ABG Oxyhemoglobin ABG Potassium ABG Chloride ABG Glucose Oxyhemoglobin Carboxyhemoglobin Sodium 148 H D Potassium Chloride 115.7 H Carbon Dioxide 21 L BUN 83 H Creatinine 3.6 H Glucose 247 H POC Glucose 238 H 201 H Hemoglobin A1c Lactic Acid Calcium Phosphorus Magnesium Transferrin AST 63 H ALT 62 H Alkaline Phosphatase 143 H Total Creatine Kinase CK-MB (CK-2) Serum Total Protein Total Protein 5.4 L Albumin 1.4 L Nqrjv-1-Crwoyhptu Vrbod-6-Iqdevkkvt Gamma Globulins PEP Interpretation TSH Arterial Blood Glucose Arterial Blood Ionized Calcium Urine WBC (Auto) Urine Creatinine Urine Total Protein 04/25/21 04/25/21 04/25/21 08:11 08:41 09:22 WBC RBC Hgb Hct MCH RDW Plt Count Seg Neuts % (Manual) Lymphocytes % (Manual) Nucleated RBC % Seg Neutrophils # Man Lymphocytes # (Manual) PT ABG pH POC ABG pCO2 POC ABG pO2 ABG pO2 ABG O2 Saturation ABG Base Excess ABG Hemoglobin ABG Oxyhemoglobin ABG Potassium ABG Chloride ABG Glucose Oxyhemoglobin Carboxyhemoglobin Sodium Potassium Chloride Carbon Dioxide BUN Creatinine Glucose POC Glucose 220 H 228 H Hemoglobin A1c Lactic Acid Calcium Phosphorus Magnesium 2.50 H Transferrin AST ALT Alkaline Phosphatase Total Creatine Kinase CK-MB (CK-2) Serum Total Protein Total Protein Albumin Ccfem-4-Nsswgajuc Cxxws-7-Akhlijpnn Gamma Globulins PEP Interpretation TSH Arterial Blood Glucose Arterial Blood Ionized Calcium Urine WBC (Auto) Urine Creatinine Urine Total Protein 04/25/21 04/25/21 04/25/21 10:31 11:44 12:23 WBC RBC Hgb Hct MCH RDW Plt Count Seg Neuts % (Manual) Lymphocytes % (Manual) Nucleated RBC % Seg Neutrophils # Man Lymphocytes # (Manual) PT ABG pH POC ABG pCO2 POC ABG pO2 ABG pO2 ABG O2 Saturation ABG Base Excess ABG Hemoglobin ABG Oxyhemoglobin ABG Potassium ABG Chloride ABG Glucose Oxyhemoglobin Carboxyhemoglobin Sodium Potassium Chloride Carbon Dioxide BUN Creatinine Glucose POC Glucose 215 H 191 H 229 H Hemoglobin A1c Lactic Acid Calcium Phosphorus Magnesium Transferrin AST ALT Alkaline Phosphatase Total Creatine Kinase CK-MB (CK-2) Serum Total Protein Total Protein Albumin Bpuau-8-Winqifjhu Eggay-1-Oeuyzhqdp Gamma Globulins PEP Interpretation TSH Arterial Blood Glucose Arterial Blood Ionized Calcium Urine WBC (Auto) Urine Creatinine Urine Total Protein 04/25/21 04/25/21 04/25/21 13:48 14:11 18:01 WBC RBC Hgb Hct MCH RDW Plt Count Seg Neuts % (Manual) Lymphocytes % (Manual) Nucleated RBC % Seg Neutrophils # Man Lymphocytes # (Manual) PT ABG pH POC ABG pCO2 POC ABG pO2 ABG pO2 ABG O2 Saturation ABG Base Excess ABG Hemoglobin ABG Oxyhemoglobin ABG Potassium ABG Chloride ABG Glucose Oxyhemoglobin Carboxyhemoglobin Sodium Potassium Chloride Carbon Dioxide BUN Creatinine Glucose POC Glucose 177 H 161 H 264 H Hemoglobin A1c Lactic Acid Calcium Phosphorus Magnesium Transferrin AST ALT Alkaline Phosphatase Total Creatine Kinase CK-MB (CK-2) Serum Total Protein Total Protein Albumin Iiqph-3-Chrmohitf Vcrch-8-[place] Gamma Globulins PEP Interpretation TSH Arterial Blood Glucose Arterial Blood Ionized Calcium Urine WBC (Auto) Urine Creatinine Urine Total Protein 04/25/21 04/26/21 04/26/21 21:31 01:19 06:31 WBC RBC Hgb Hct MCH RDW Plt Count Seg Neuts % (Manual) Lymphocytes % (Manual) Nucleated RBC % Seg Neutrophils # Man Lymphocytes # (Manual) PT ABG pH POC ABG pCO2 POC ABG pO2 ABG pO2 ABG O2 Saturation ABG Base Excess ABG Hemoglobin ABG Oxyhemoglobin ABG Potassium ABG Chloride ABG Glucose Oxyhemoglobin Carboxyhemoglobin Sodium Potassium Chloride Carbon Dioxide BUN Creatinine Glucose POC Glucose 371 H 356 H 428 H Hemoglobin A1c Lactic Acid Calcium Phosphorus Magnesium Transferrin AST ALT Alkaline Phosphatase Total Creatine Kinase CK-MB (CK-2) Serum Total Protein Total Protein Albumin Gyuvz-4-Wwckgfujj Gcxti-6-Nexttuapf Gamma Globulins PEP Interpretation TSH Arterial Blood Glucose Arterial Blood Ionized Calcium Urine WBC (Auto) Urine Creatinine Urine Total Protein 04/26/21 04/26/21 04/26/21 09:13 09:33 09:33 WBC RBC Hgb Hct MCH 27 L RDW 16.9 H Plt Count 58 L Seg Neuts % (Manual) 77.0 H Lymphocytes % (Manual) 4.0 L Nucleated RBC % 2.0 H Seg Neutrophils # Man Lymphocytes # (Manual) 0.3 L PT ABG pH POC ABG pCO2 POC ABG pO2 ABG pO2 ABG O2 Saturation ABG Base Excess ABG Hemoglobin ABG Oxyhemoglobin ABG Potassium ABG Chloride ABG Glucose Oxyhemoglobin Carboxyhemoglobin Sodium Potassium Chloride Carbon Dioxide BUN Creatinine Glucose POC Glucose 454 H Hemoglobin A1c Lactic Acid Calcium Phosphorus 5.60 H D Magnesium Transferrin AST ALT Alkaline Phosphatase Total Creatine Kinase CK-MB (CK-2) Serum Total Protein Total Protein Albumin Qxzwy-5-Hsuaibujw Uysle-3-Tvgbhteid Gamma Globulins PEP Interpretation TSH Arterial Blood Glucose Arterial Blood Ionized Calcium Urine WBC (Auto) Urine Creatinine Urine Total Protein 04/26/21 04/26/21 04/26/21 09:33 11:00 12:36 WBC RBC Hgb Hct MCH RDW Plt Count Seg Neuts % (Manual) Lymphocytes % (Manual) Nucleated RBC % Seg Neutrophils # Man Lymphocytes # (Manual) PT ABG pH 7.281 L POC ABG pCO2 POC ABG pO2 66.4 L ABG pO2 ABG O2 Saturation ABG Base Excess ABG Hemoglobin 10.9 L ABG Oxyhemoglobin 91 L ABG Potassium ABG Chloride ABG Glucose 521 H Oxyhemoglobin Carboxyhemoglobin Sodium Potassium Chloride Carbon Dioxide 19 L BUN 98 H Creatinine 3.8 H Glucose 530 H* POC Glucose 414 H Hemoglobin A1c Lactic Acid Calcium 8.1 L Phosphorus Magnesium Transferrin AST 60 H ALT 72 H Alkaline Phosphatase 168 H Total Creatine Kinase CK-MB (CK-2) Serum Total Protein Total Protein 4.6 L Albumin 1.7 L Fmatg-9-Mmxpxoora Kigyz-9-Ovjfuqjln Gamma Globulins PEP Interpretation TSH Arterial Blood Glucose 521 H Arterial Blood Ionized Calcium Urine WBC (Auto) Urine Creatinine Urine Total Protein 04/26/21 04/26/21 04/26/21 15:39 16:18 21:14 WBC RBC Hgb Hct MCH RDW Plt Count Seg Neuts % (Manual) Lymphocytes % (Manual) Nucleated RBC % Seg Neutrophils # Man Lymphocytes # (Manual) PT ABG pH 7.275 L POC ABG pCO2 POC ABG pO2 63.4 L ABG pO2 ABG O2 Saturation ABG Base Excess ABG Hemoglobin 8.4 L ABG Oxyhemoglobin 89.5 L ABG Potassium ABG Chloride 108.0 H ABG Glucose 404 H Oxyhemoglobin Carboxyhemoglobin Sodium Potassium Chloride Carbon Dioxide BUN Creatinine Glucose POC Glucose 324 H 242 H Hemoglobin A1c Lactic Acid Calcium Phosphorus Magnesium Transferrin AST ALT Alkaline Phosphatase Total Creatine Kinase CK-MB (CK-2) Serum Total Protein Total Protein Albumin Fglim-2-Gltyhvihn Vbizf-2-Ensdypwgv Gamma Globulins PEP Interpretation TSH Arterial Blood Glucose 404 H Arterial Blood Ionized Calcium Urine WBC (Auto) Urine Creatinine Urine Total Protein 04/27/21 04/27/21 04/27/21 00:07 05:47 06:23 WBC RBC Hgb Hct MCH RDW Plt Count Seg Neuts % (Manual) Lymphocytes % (Manual) Nucleated RBC % Seg Neutrophils # Man Lymphocytes # (Manual) PT ABG pH POC ABG pCO2 POC ABG pO2 ABG pO2 ABG O2 Saturation ABG Base Excess ABG Hemoglobin ABG Oxyhemoglobin ABG Potassium ABG Chloride ABG Glucose Oxyhemoglobin Carboxyhemoglobin Sodium Potassium Chloride Carbon Dioxide BUN Creatinine Glucose POC Glucose 282 H 214 H 187 H Hemoglobin A1c Lactic Acid Calcium Phosphorus Magnesium Transferrin AST ALT Alkaline Phosphatase Total Creatine Kinase CK-MB (CK-2) Serum Total Protein Total Protein Albumin Apids-5-Jxkepkrpe Ywzyp-6-Kmlxhtcti Gamma Globulins PEP Interpretation TSH Arterial Blood Glucose Arterial Blood Ionized Calcium Urine WBC (Auto) Urine Creatinine Urine Total Protein 04/27/21 04/27/21 04/27/21 07:43 08:30 11:54 WBC RBC Hgb Hct MCH RDW Plt Count Seg Neuts % (Manual) Lymphocytes % (Manual) Nucleated RBC % Seg Neutrophils # Man Lymphocytes # (Manual) PT ABG pH 7.309 L POC ABG pCO2 POC ABG pO2 70.6 L ABG pO2 ABG O2 Saturation ABG Base Excess ABG Hemoglobin 9.16 L ABG Oxyhemoglobin 92.4 L ABG Potassium ABG Chloride ABG Glucose Oxyhemoglobin Carboxyhemoglobin Sodium Potassium Chloride 110.1 H Carbon Dioxide 15 L BUN 109 H Creatinine 4.3 H Glucose 218 H POC Glucose 147 H Hemoglobin A1c Lactic Acid Calcium Phosphorus Magnesium Transferrin AST 53 H ALT Alkaline Phosphatase 148 H Total Creatine Kinase 1000 H CK-MB (CK-2) Serum Total Protein Total Protein 5.2 L Albumin 1.2 L Dshti-8-Tdmppkcyn Dbype-3-Wdezaqyks Gamma Globulins PEP Interpretation TSH Arterial Blood Glucose Arterial Blood Ionized Calcium Urine WBC (Auto) Urine Creatinine Urine Total Protein 04/27/21 04/27/21 04/28/21 21:08 23:28 04:00 WBC 12.6 H RBC 3.59 L Hgb 9.4 L Hct MCH 26 L RDW 16.6 H Plt Count 111 L Seg Neuts % (Manual) Lymphocytes % (Manual) 1.0 L Nucleated RBC % 4.0 H Seg Neutrophils # Man 11.6 H Lymphocytes # (Manual) 0.1 L PT ABG pH POC ABG pCO2 POC ABG pO2 ABG pO2 ABG O2 Saturation ABG Base Excess ABG Hemoglobin ABG Oxyhemoglobin ABG Potassium ABG Chloride ABG Glucose Oxyhemoglobin Carboxyhemoglobin Sodium Potassium Chloride Carbon Dioxide BUN Creatinine Glucose POC Glucose 136 H 201 H Hemoglobin A1c Lactic Acid Calcium Phosphorus Magnesium Transferrin AST ALT Alkaline Phosphatase Total Creatine Kinase CK-MB (CK-2) Serum Total Protein Total Protein Albumin Plhkh-6-Xyekogdtm Dcyvy-1-Plhxmzehp Gamma Globulins PEP Interpretation TSH Arterial Blood Glucose Arterial Blood Ionized Calcium Urine WBC (Auto) Urine Creatinine Urine Total Protein 04/28/21 04/28/21 04/28/21 04:00 05:00 05:08 WBC RBC Hgb Hct MCH RDW Plt Count Seg Neuts % (Manual) Lymphocytes % (Manual) Nucleated RBC % Seg Neutrophils # Man Lymphocytes # (Manual) PT 15.3 H ABG pH POC ABG pCO2 POC ABG pO2 ABG pO2 ABG O2 Saturation ABG Base Excess ABG Hemoglobin ABG Oxyhemoglobin ABG Potassium ABG Chloride ABG Glucose Oxyhemoglobin Carboxyhemoglobin Sodium 147 H Potassium 3.5 L D Chloride Carbon Dioxide BUN 79 H Creatinine 3.8 H Glucose 194 H POC Glucose 183 H Hemoglobin A1c Lactic Acid Calcium 8.1 L Phosphorus Magnesium Transferrin AST ALT Alkaline Phosphatase Total Creatine Kinase CK-MB (CK-2) Serum Total Protein Total Protein Albumin Gqtdh-1-Jqjhbisee Vdozw-0-Obhkxyeja Gamma Globulins PEP Interpretation TSH Arterial Blood Glucose Arterial Blood Ionized Calcium Urine WBC (Auto) Urine Creatinine Urine Total Protein 04/28/21 04/28/21 04/28/21 05:18 11:04 17:16 WBC RBC Hgb Hct MCH RDW Plt Count Seg Neuts % (Manual) Lymphocytes % (Manual) Nucleated RBC % Seg Neutrophils # Man Lymphocytes # (Manual) PT ABG pH POC ABG pCO2 POC ABG pO2 66.5 L ABG pO2 ABG O2 Saturation ABG Base Excess ABG Hemoglobin 9.7 L ABG Oxyhemoglobin 92.5 L ABG Potassium 3.2 L ABG Chloride ABG Glucose 200 H Oxyhemoglobin Carboxyhemoglobin Sodium Potassium Chloride Carbon Dioxide BUN Creatinine Glucose POC Glucose 174 H 135 H Hemoglobin A1c Lactic Acid Calcium Phosphorus Magnesium Transferrin AST ALT Alkaline Phosphatase Total Creatine Kinase CK-MB (CK-2) Serum Total Protein Total Protein Albumin Qzawt-6-Rqzubammm Lbfbi-7-Kkgwfktda Gamma Globulins PEP Interpretation TSH Arterial Blood Glucose 200 H Arterial Blood Ionized Calcium 4.5 L Urine WBC (Auto) Urine Creatinine Urine Total Protein 04/28/21 04/28/21 04/29/21 21:14 23:41 01:16 WBC RBC Hgb Hct MCH RDW Plt Count Seg Neuts % (Manual) Lymphocytes % (Manual) Nucleated RBC % Seg Neutrophils # Man Lymphocytes # (Manual) PT ABG pH POC ABG pCO2 POC ABG pO2 ABG pO2 ABG O2 Saturation ABG Base Excess ABG Hemoglobin ABG Oxyhemoglobin ABG Potassium ABG Chloride ABG Glucose Oxyhemoglobin Carboxyhemoglobin Sodium Potassium Chloride Carbon Dioxide BUN Creatinine Glucose POC Glucose 134 H 171 H 236 H Hemoglobin A1c Lactic Acid Calcium Phosphorus Magnesium Transferrin AST ALT Alkaline Phosphatase Total Creatine Kinase CK-MB (CK-2) Serum Total Protein Total Protein Albumin Didve-6-Bpgutlhlj Cwzog-6-Fmyegmsgm Gamma Globulins PEP Interpretation TSH Arterial Blood Glucose Arterial Blood Ionized Calcium Urine WBC (Auto) Urine Creatinine Urine Total Protein 04/29/21 04/29/21 04/29/21 04:00 04:00 11:35 WBC 13.3 H RBC 3.12 L Hgb 8.3 L Hct 26.2 L MCH 27 L RDW 16.3 H Plt Count 132 L Seg Neuts % (Manual) Lymphocytes % (Manual) Nucleated RBC % Seg Neutrophils # Man Lymphocytes # (Manual) PT ABG pH POC ABG pCO2 POC ABG pO2 ABG pO2 ABG O2 Saturation ABG Base Excess ABG Hemoglobin ABG Oxyhemoglobin ABG Potassium ABG Chloride ABG Glucose Oxyhemoglobin Carboxyhemoglobin Sodium Potassium Chloride Carbon Dioxide BUN 63 H Creatinine 3.4 H Glucose 249 H POC Glucose 320 H Hemoglobin A1c Lactic Acid Calcium 8.2 L Phosphorus Magnesium Transferrin AST 61 H ALT 71 H Alkaline Phosphatase 170 H Total Creatine Kinase CK-MB (CK-2) Serum Total Protein Total Protein 5.1 L Albumin 1.6 L Czwlx-2-Eqqcdidlo Gnimv-6-Jpjphljkm Gamma Globulins PEP Interpretation TSH Arterial Blood Glucose Arterial Blood Ionized Calcium Urine WBC (Auto) Urine Creatinine Urine Total Protein 04/29/21 04/29/21 04/29/21 13:30 16:01 21:58 WBC RBC Hgb Hct MCH RDW Plt Count Seg Neuts % (Manual) Lymphocytes % (Manual) Nucleated RBC % Seg Neutrophils # Man Lymphocytes # (Manual) PT ABG pH POC ABG pCO2 POC ABG pO2 ABG pO2 ABG O2 Saturation ABG Base Excess ABG Hemoglobin ABG Oxyhemoglobin ABG Potassium ABG Chloride ABG Glucose Oxyhemoglobin Carboxyhemoglobin Sodium Potassium Chloride Carbon Dioxide BUN Creatinine Glucose POC Glucose 297 H 260 H Hemoglobin A1c Lactic Acid Calcium Phosphorus Magnesium Transferrin AST ALT Alkaline Phosphatase Total Creatine Kinase CK-MB (CK-2) Serum Total Protein Total Protein Albumin Ttjqm-7-Tqmotpimc Icplb-1-Ilhrrtzjb Gamma Globulins PEP Interpretation TSH Arterial Blood Glucose Arterial Blood Ionized Calcium Urine WBC (Auto) > 182.0 H Urine Creatinine Urine Total Protein 04/29/21 04/30/21 04/30/21 23:35 04:00 04:00 WBC 11.4 H RBC 3.27 L Hgb 8.7 L Hct 27.5 L MCH 27 L RDW 16.6 H Plt Count Seg Neuts % (Manual) Lymphocytes % (Manual) Nucleated RBC % Seg Neutrophils # Man Lymphocytes # (Manual) PT ABG pH POC ABG pCO2 POC ABG pO2 ABG pO2 ABG O2 Saturation ABG Base Excess ABG Hemoglobin ABG Oxyhemoglobin ABG Potassium ABG Chloride ABG Glucose Oxyhemoglobin Carboxyhemoglobin Sodium Potassium 3.1 L Chloride Carbon Dioxide BUN 79 H Creatinine 3.9 H Glucose 275 H POC Glucose 254 H Hemoglobin A1c Lactic Acid Calcium Phosphorus 5.60 H D Magnesium Transferrin AST ALT Alkaline Phosphatase Total Creatine Kinase CK-MB (CK-2) Serum Total Protein Total Protein Albumin Jursj-5-Ewqkzbidu Ilxll-7-Wcejazuyj Gamma Globulins PEP Interpretation TSH Arterial Blood Glucose Arterial Blood Ionized Calcium Urine WBC (Auto) Urine Creatinine Urine Total Protein 04/30/21 04/30/21 04/30/21 05:17 05:31 12:31 WBC RBC Hgb Hct MCH RDW Plt Count Seg Neuts % (Manual) Lymphocytes % (Manual) Nucleated RBC % Seg Neutrophils # Man Lymphocytes # (Manual) PT ABG pH 7.452 H POC ABG pCO2 30.5 L POC ABG pO2 54.5 L ABG pO2 ABG O2 Saturation ABG Base Excess ABG Hemoglobin 10.1 L ABG Oxyhemoglobin 87.4 L ABG Potassium 2.9 L ABG Chloride ABG Glucose 305 H Oxyhemoglobin Carboxyhemoglobin Sodium Potassium Chloride Carbon Dioxide BUN Creatinine Glucose POC Glucose 267 H 259 H Hemoglobin A1c Lactic Acid Calcium Phosphorus Magnesium Transferrin AST ALT Alkaline Phosphatase Total Creatine Kinase CK-MB (CK-2) Serum Total Protein Total Protein Albumin Wehbd-3-Jymdjiozb Jlqbb-3-Ekxjuptny Gamma Globulins PEP Interpretation TSH Arterial Blood Glucose 305 H Arterial Blood Ionized Calcium Urine WBC (Auto) Urine Creatinine Urine Total Protein 04/30/21 04/30/21 05/01/21 17:50 22:24 00:09 WBC RBC Hgb Hct MCH RDW Plt Count Seg Neuts % (Manual) Lymphocytes % (Manual) Nucleated RBC % Seg Neutrophils # Man Lymphocytes # (Manual) PT ABG pH POC ABG pCO2 POC ABG pO2 ABG pO2 ABG O2 Saturation ABG Base Excess ABG Hemoglobin ABG Oxyhemoglobin ABG Potassium ABG Chloride ABG Glucose Oxyhemoglobin Carboxyhemoglobin Sodium Potassium Chloride Carbon Dioxide BUN Creatinine Glucose POC Glucose 161 H 146 H 149 H Hemoglobin A1c Lactic Acid Calcium Phosphorus Magnesium Transferrin AST ALT Alkaline Phosphatase Total Creatine Kinase CK-MB (CK-2) Serum Total Protein Total Protein Albumin Pcejv-2-Kxchqzlvh Leqjy-6-Cssbgcrkh Gamma Globulins PEP Interpretation TSH Arterial Blood Glucose Arterial Blood Ionized Calcium Urine WBC (Auto) Urine Creatinine Urine Total Protein 05/01/21 05/01/21 05/01/21 03:30 04:00 04:00 WBC 12.0 H RBC 3.08 L Hgb 8.1 L Hct 25.6 L MCH 26 L RDW 16.3 H Plt Count Seg Neuts % (Manual) Lymphocytes % (Manual) Nucleated RBC % Seg Neutrophils # Man Lymphocytes # (Manual) PT ABG pH 7.493 H POC ABG pCO2 POC ABG pO2 ABG pO2 ABG O2 Saturation ABG Base Excess ABG Hemoglobin 25.0 H ABG Oxyhemoglobin ABG Potassium ABG Chloride ABG Glucose 167 H Oxyhemoglobin Carboxyhemoglobin 0.4 L Sodium Potassium 3.5 L Chloride Carbon Dioxide BUN 62 H Creatinine 3.3 H Glucose 179 H POC Glucose Hemoglobin A1c Lactic Acid Calcium 8.3 L Phosphorus Magnesium Transferrin AST ALT Alkaline Phosphatase Total Creatine Kinase CK-MB (CK-2) Serum Total Protein Total Protein Albumin Afhvc-0-Rcplkfdyf Kbsgu-5-Gbyghqohy Gamma Globulins PEP Interpretation TSH Arterial Blood Glucose 167 H Arterial Blood Ionized Calcium Urine WBC (Auto) Urine Creatinine Urine Total Protein 05/01/21 05:48 WBC RBC Hgb Hct MCH RDW Plt Count Seg Neuts % (Manual) Lymphocytes % (Manual) Nucleated RBC % Seg Neutrophils # Man Lymphocytes # (Manual) PT ABG pH POC ABG pCO2 POC ABG pO2 ABG pO2 ABG O2 Saturation ABG Base Excess ABG Hemoglobin ABG Oxyhemoglobin ABG Potassium ABG Chloride ABG Glucose Oxyhemoglobin Carboxyhemoglobin Sodium Potassium Chloride Carbon Dioxide BUN Creatinine Glucose POC Glucose 197 H Hemoglobin A1c Lactic Acid Calcium Phosphorus Magnesium Transferrin AST ALT Alkaline Phosphatase Total Creatine Kinase CK-MB (CK-2) Serum Total Protein Total Protein Albumin Vhjuv-4-Fdivzpaax Bzwdy-9-Zbvaojdjw Gamma Globulins PEP Interpretation TSH Arterial Blood Glucose Arterial Blood Ionized Calcium Urine WBC (Auto) Urine Creatinine Urine Total Protein Chest x-ray: image reviewed
[2021-05-01] MEDS: INSULIN NPH, HUMAN 100 UNIT/1 ML SUB-Q SCH ×2 (10:00→22:06)
[2021-05-01] MEDS: SENNOSIDES/DOCUSATE SODIUM 8.6/50 MG TAB FEEDTUBE SCH ×2 (10:00→22:06)
[2021-05-01] MEDS: FAMOTIDINE 10 MG TAB FEEDTUBE SCH ×2 (10:00→22:06)
[2021-05-01] MEDS: NORepinephrine/NS 8 MG-250 ML 8 MG/250 ML INFUS..BTL IV SCH (10:01)
--- NOTE | 2021-05-01 10:20 | Progress Note ---
Assessment and Plan (1) Acute metabolic encephalopathy (2) Diabetic hyperosmolar non-ketotic state 3) SEYD (acute kidney injury) (4) Dehydration (5) Hypernatremia (6) Rhabdomyolysis (7) Hypernatremia 8) GERD (gastroesophageal reflux disease) (9) Metabolic acidosis (10) Leukocytosis On IHD after consent obtained from nephew last week. Has vascath. CXR congested. s/p HD yesterday. HD today with target UF 3L. Will need HD again tomorrow. On Levophed. Will titrate to keep MAP >65 during HD UA bland Intubated on Vent. Monitor Ck renally dose meds Strict I&O In ICU Critical Care time: 36 minutes Subjective Date of service: 05/01/21 Principal diagnosis: Acute respiratory failure Interval history: Intubated on Vent. On IHD. On Levophed. Objective - Exam Narrative Exam: General appearance: Intubated EENT: mucous membranes dry Neck: Present: neck supple Respiratory: Decreased Breath Sounds Heart: tachycardia Gastrointestinal: Present: normoactive bowel sounds. Absent: tenderness, distended, masses Integumentary: no rash, warm and dry Neurologic: Sedated Musculoskeletal: Present: other (no edema in BLE) - Vital Signs Vital signs: Vital Signs - 12hr 04/30/21 04/30/21 04/30/21 22:30 22:42 22:45 Temperature Pulse Rate 107 H 117 H 112 H Pulse Rate [ From Monitor] Respiratory 23 19 15 Rate Blood Pressure 116/50 116/50 130/51 O2 Sat by Pulse 97 96 96 Oximetry 04/30/21 04/30/21 04/30/21 23:00 23:16 23:30 Temperature Pulse Rate 113 H 109 H 109 H Pulse Rate [ From Monitor] Respiratory 24 18 25 H Rate Blood Pressure 114/51 106/46 106/48 O2 Sat by Pulse 100 95 97 Oximetry 04/30/21 05/01/21 05/01/21 23:45 00:00 00:13 Temperature Pulse Rate 107 H 109 H 108 H Pulse Rate [ 115 H From Monitor] Respiratory 21 15 Rate Blood Pressure 110/42 105/48 126/58 O2 Sat by Pulse 98 98 93 Oximetry 05/01/21 05/01/21 05/01/21 00:15 00:30 00:45 Temperature Pulse Rate 109 H 106 H 108 H Pulse Rate [ From Monitor] Respiratory 14 18 24 Rate Blood Pressure 126/58 97/46 101/44 O2 Sat by Pulse 99 97 98 Oximetry 05/01/21 05/01/21 05/01/21 01:00 01:15 01:30 Temperature 97.8 F Pulse Rate 109 H 107 H 108 H Pulse Rate [ From Monitor] Respiratory 21 19 24 Rate Blood Pressure 107/45 99/50 100/45 O2 Sat by Pulse 98 98 98 Oximetry 05/01/21 05/01/21 05/01/21 01:45 02:00 02:15 Temperature Pulse Rate 107 H 105 H 106 H Pulse Rate [ From Monitor] Respiratory 17 30 H 15 Rate Blood Pressure 101/45 108/46 98/44 O2 Sat by Pulse 98 99 99 Oximetry 05/01/21 05/01/21 05/01/21 02:30 02:45 03:00 Temperature Pulse Rate 104 H 104 H 110 H Pulse Rate [ From Monitor] Respiratory 36 H 21 31 H Rate Blood Pressure 102/40 100/48 103/46 O2 Sat by Pulse 99 99 99 Oximetry 05/01/21 05/01/21 05/01/21 03:15 03:30 03:45 Temperature Pulse Rate 110 H 110 H 112 H Pulse Rate [ From Monitor] Respiratory 27 H 16 22 Rate Blood Pressure 98/50 92/50 104/53 O2 Sat by Pulse 99 99 99 Oximetry 05/01/21 05/01/21 05/01/21 04:00 04:15 04:16 Temperature Pulse Rate 114 H 111 H 111 H Pulse Rate [ 115 H From Monitor] Respiratory 32 H 13 Rate Blood Pressure 98/47 87/54 87/54 O2 Sat by Pulse 95 99 99 Oximetry 05/01/21 05/01/21 05/01/21 04:30 04:45 05:00 Temperature 98.5 F Pulse Rate 112 H 114 H 107 H Pulse Rate [ From Monitor] Respiratory 28 H 28 H 28 H Rate Blood Pressure 88/49 87/46 98/41 O2 Sat by Pulse 99 99 99 Oximetry 05/01/21 05/01/21 05/01/21 05:15 05:30 05:45 Temperature Pulse Rate 108 H 111 H 105 H Pulse Rate [ From Monitor] Respiratory 29 H 30 H 26 H Rate Blood Pressure 94/43 104/53 102/46 O2 Sat by Pulse 99 99 100 Oximetry 05/01/21 05/01/21 05/01/21 06:00 06:15 06:30 Temperature Pulse Rate 107 H 100 H 99 H Pulse Rate [ From Monitor] Respiratory 32 H 21 24 Rate Blood Pressure 105/50 99/44 94/43 O2 Sat by Pulse 99 100 100 Oximetry 05/01/21 05/01/21 05/01/21 06:45 07:00 07:15 Temperature Pulse Rate 96 H 97 H 95 H Pulse Rate [ From Monitor] Respiratory 20 27 H 19 Rate Blood Pressure 101/39 101/39 92/41 O2 Sat by Pulse 100 100 100 Oximetry 05/01/21 05/01/21 05/01/21 07:30 07:31 07:45 Temperature 101.7 F H Pulse Rate Pulse Rate [ From Monitor] Respiratory 23 21 Rate Blood Pressure 92/41 92/41 O2 Sat by Pulse 100 99 Oximetry 05/01/21 08:00 Temperature Pulse Rate 97 H Pulse Rate [ 102 H From Monitor] Respiratory 12 Rate Blood Pressure 92/41 O2 Sat by Pulse 100 Oximetry - Lab 05/01/21 04:00 05/01/21 04:00 Most recent lab results ABG pH 7.493 (7.320-7.450) H 05/01/21 03:30 ABG pCO2 31.6 mm Hg 04/21/21 15:47 ABG pO2 168.1 mm Hg (80.0-90.0) H 04/21/21 15:47 ABG HCO3 23.3 mmol/L (20.0-26.0) 04/21/21 15:47 ABG O2 Saturation 97.1 (0-100) 05/01/21 03:30 Calcium 8.3 mg/dL (8.4-10.2) L 05/01/21 04:00 Phosphorus 3.80 mg/dL (2.5-4.5) D 05/01/21 04:00 Magnesium 1.80 mg/dL (1.7-2.3) 05/01/21 04:00 Urine Creatinine 44.3 mg/dL (0.1-20.0) H 04/21/21 08:01 Urine Sodium 71 mmol/L 04/21/21 08:01 Urine Total Protein 12 mg/dL (5-11.8) H 04/21/21 08:01 Medications & Allergies - Medications Allergies/Adverse Reactions: Allergies No Known Allergies Allergy (Unverified 04/20/21 14:35) Active Medications: Generic Name Dose Route Start Last Admin Trade Name Freq PRN Reason Stop Dose Admin Acetaminophen 650 mg 04/20/21 21:31 05/01/21 07:40 Acetaminophen 325 Mg Tab PO 650 mg Q4H PRN Administration Pain MILD(1-3)/Fever >100.5/TURCIOS Albuterol 2.5 mg 04/22/21 14:49 04/23/21 15:18 Albuterol 2.5 Mg/3 Ml Nebu IH 2.5 mg Q4HRT PRN Administration Shortness Of Breath Lipase/Protease/Amylase 1 each 04/25/21 14:13 Lipase 10,500/Protease 25,000/Amylase 43,750 (Units) Dr Vasquez FEEDTUBE PRN PRN For Clogged Feeding Tube Dextrose 50 ml 04/24/21 11:36 Dextrose 50% In Water (25gm) 50 Ml Syringe IV Q30MIN PRN Hypoglycemia Protocol Famotidine 10 mg 04/27/21 10:00 05/01/21 10:00 Famotidine 10 Mg Tab FEEDTUBE 10 mg BID AZIZA Administration Hydralazine HCl 10 mg 04/24/21 21:22 Hydralazine 20 Mg/1 Ml Inj IV Q4HR PRN elevated BP Hydrophilic Ointment 1 applic 04/26/21 11:16 Lip Therapy Vaseline TP Q2HR PRN Dry Lips NORepinephrine/NS 8 MG-250 ML 8 mg in 250 mls @ 3.75 mls/hr 04/26/21 16:00 05/01/21 10:01 Norepinephrine/Ns 8 Mg-250 Ml (Double Conc) IV 2 mcg/min TITRATE AZIZA 3.75 mls/hr Administration Protocol 2 MCG/MIN Cefepime HCl 2 gm in 100 mls @ 200 mls/hr 04/29/21 22:00 04/30/21 22:17 Cefepime/Ns 2 Gm/100 Ml IV 200 mls/hr Q24H AZIZA Administration Protocol Sodium Chloride 100 mls @ 999 mls/hr 04/30/21 11:00 Nacl 0.9% IV MITCH PRN Hypotension Sodium Chloride 100 mls @ 999 mls/hr 04/30/21 12:10 Nacl 0.9% IV MITCH PRN Hypotension Insulin Human Lispro 0 unit 04/25/21 18:00 05/01/21 06:09 Insulin Lispro 100 Unit/Ml SUB-Q 3 unit Q6HR AZIZA Administration Protocol Insulin Human NPH 40 unit 04/30/21 10:00 05/01/21 10:00 Insulin Nph, Human 100 Unit/1 Ml SUB-Q 40 unit Q12HR AZIZA Administration Lorazepam 1 mg 04/26/21 11:15 04/30/21 23:00 Lorazepam 2 Mg/Ml Vial IV 1 mg Q4H PRN Administration Sedation Metoclopramide HCl 5 mg 04/20/21 21:31 Metoclopramide 10 Mg/2 Ml Inj IV Q6H PRN Nausea And Vomiting Multi-Ingred Cream/Lotion/Oil/Oint 1 applic 04/26/21 11:16 Mineral Oil/Petrolatum, White Ophth Oint 3.5 Gm OU Q4HR PRN Dry Eye(s) Ondansetron HCl 4 mg 04/20/21 21:31 Ondansetron 4 Mg/2 Ml Inj IV Q8H PRN Nausea And Vomiting Senna/Docusate Sodium 1 tab 04/26/21 22:00 05/01/21 10:00 Sennosides/Docusate Sodium 8.6/50 Mg Tab FEEDTUBE 1 tab BID AZIZA Administration Simple Syrup 15 ml 04/25/21 14:13 Simple Syrup 15 Ml FEEDTUBE PRN PRN Hypoglycemia Simple Syrup 30 ml 04/25/21 14:13 Simple Syrup 15 Ml FEEDTUBE PRN PRN Hypoglycemia Sodium Bicarbonate 325 mg 04/25/21 14:13 04/27/21 13:00 Sodium Bicarbonate 325 Mg Tab FEEDTUBE 325 mg PRN PRN Administration For Clogged Feeding Tube Sodium Bicarbonate 1,300 mg 04/27/21 14:00 05/01/21 07:41 Sodium Bicarbonate 650 Mg Tab PO 1,300 mg TID AZIZA Administration Sodium Chloride 10 ml 04/20/21 22:00 05/01/21 10:00 Sodium Chloride 0.9% 10 Ml Flush Syringe IV 10 ml BID AZIZA Administration Sodium Chloride 10 ml 04/20/21 21:31 Sodium Chloride 0.9% 10 Ml Flush Syringe IV PRN PRN LINE FLUSH
--- NOTE | 2021-05-01 12:22 | Progress Note ---
Assessment and Plan Assessment and plan: This is a 80-year-old female, snf resident with past medical history of GERD, hypothyroidism, hyperlipidemia, schizophrenia and dementia admitted with hypothermia, hyponatremia, hypokalemia, lactic acidosis, acute kidney injury, rhabdomyolysis and hyperosmolar nonketotic state. Hospital Course to Date: This is a 80-year-old female who was snf resident at [facility] with GERD, hypothyroidism, hyperlipidemia, schizophrenia and dementia presented to the emergency department on 04/20 after being found unresponsive by the staff via EMS. Per EMS glucose levels read as high. Work-up in the emergency department revealed severe hypernatremia, leukocytosis, metabolic acidosis, hyperchloremia, elevated BUN/creatinine, lactic acidosis and hyperglycemia. Patient was also hypothermic on admit. CT head showed findings suggestive of the possibility of normal pressure hydrocephalus. Patient was admitted to the hospitalist service with acute metabolic encephalopathy, diabetic hyperosmolar nonketotic state, acute kidney injury, hypernatremia, rhabdomyolysis and leukocytosis with consults to nephrology and CCM. 04/21: Given 1 L LR bolus per nephrology and D5W increased to 125 mL's per hour, COVID-19 PCR pending, CXR and ABG ordered as patient was weaned from BiPAP to 3 L nasal cannula however was uptitrated back to nonrebreather. Will obtain blood cultures x2 given her leukocytosis and hypothermia. Replace potassium. Neurosurgery and neurology consulted and Luther catheter placed. 04/22: Improvement to sodium noted, slight hypokalemia which will be repleted, slight improvement to renal function, LFTs and rhabdomyolysis. Seen by neurosurgery today. Patient still making urine. transition to ssi and start TF as AG 15 04/23/2021: Given racemic epinephrine again due to stridor, continue IV fluids per nephrology, continue to trend sodium and BMP. 04/24/2021: /30 increased d/t hyperglycemia but recent BMP showed BG>300, gave additional 5 units IV insulin and ordered 5 units TID scheduled. However after IV insulin her PCOT was 400. Start on insulin gtt for hyperglycemia. Per RN she was not of IV D5 overniught d/t having one IV which was needed for emergency. Day RN did start dextrose. Remains with hyperglycemia. 04/25: Patient obtunded, withdrawal to pain only, on 50%Venti mask SPO2 abobe 92%. Plan to transition to SubQ insulin. Patient with mild hypernatremia this am, FWF added, will stop IVF for now. 04/26: Patient s/p intubation this am. Mentation is unchanged, plan for MRI brain today per NeuroSurg. Still hyperglycemic, hypernatremia improved, D5W D/katlyn, and basal insulin adjusted. 04/27: Bronch overnight. CXR with mild improvement. D/w Nephro plan for HD today, RIJ VasCath inserted. MRI on hold per [facility] patient is too unstable at this time, plan for possible spinal drained tomorrow to see if mentation will improve. 04/28: Tolerated HD overnight, only UF. Mentation remains the same. D/w CCM plan for possible large volume spinal tap under fluoroscopy today. Plan for possible HD again today. Continue FWF for elevated Na. 04/29: MARY overnight. Plan for spinal tap this am. febrile overnight with leukocytosis, remains on pressors and more tachycardic now. Will panculture patient, and empiric IV was initiated. Remains hyperglycemic, basal insulin adjusted. 04/30: Patient's mentation remains unchanged post spinal tap. Plan for possible MRI brain next week. Afebrile overnight and leukocytosis improved, However, vent settings are going up and this am ABG with hypoxia, this am CXR with worsening opacities. Patient with 3+ pitting edema. Continue HD per Nephro. Continue current empiric IV abx, f/u on culture data, might need to get ID on board if worsen. 05/01: Mentation is unchanged, still on pressors. Febrile this am, continue IV abx, ID consulted. 3L out yesterday, plan for HD again tomorrow. Plt count improved, might need to restart AC, will D/w CCM. Assessment and Plan #Neuro: Acute metabolic encephalopathy #Normal Pressure Hydrocephalus -CT head shows lateral ventricles and third ventricle dilation, raises possibility of normal pressure hydrocephalus -Neurology and neurosurgery consulted, appreciate recommendations -neurosurgery no acute interventions -04/29 s/p spinal tap, mental is unchanged -Plan for MRI possibly next week -Maintain sleep-wake cycle -Avoid delirium -Correct electrolyte derangements -Hold off on restarting home antipsychotic medications when obtained #Hypotension #Tachycardia #Sepsis -Low BP, multifactorial-hypovelemia vs infectious process -Tachycardia and febrile this am -Continue pressors- Levophed gtt -Titrate pressors for a MAP above 65 -Continue blood pressure monitor per protocol #Respiratory: Acute hypoxic respiratory failure #CAP #Possible Aspiration -Patient decompensated overnight SPO2 dropped in the low 70s -S/p intubation this am 04/26 -Vent setting:PRVC-50%,8,14,450 -04/26 s/p bronchoscopy, this am CXR with mild improvement -This am ABG noted -This am CXR slight worse compare to prior -CCM consulted, appreciate recommendations -VAP bundle addressed -Aspiration precaution HOB above 30 -Daily SBT and SAT trials as tolerated -Daily ABG and CXR -Continue SPO2 monitoring for SPO2 goal above 92% #GI:Transaminitis #Hypoalbuminemia -Presented with transaminitis -Trend LFTs -Continue enteral nutrition -Ntr consult for TF -BR: Senokot -PPI #:Acute Kidney Injury (SYED) likely secondary to vasomotor nephropathy #Hypokalemia #Hypernatremia-improved #Urinary Retention-resolved -FeNA 0.50 indicating prerenal sate -Nephrology and CCM consulted, appreciate recommendations -04/27 vascath inserted and HD initiated, patient tolerated it well -Edema improved post HD, 3L out yesterday -HD per Nephro -Luther catheter placed for strict intake and output -Avoid nephrotoxic medication, Renally dose medications -K repleted -Continue to monitor and replace electrolytes as needed -Trend BMP #ID:CAP #Leukocytosis #Urinary Tract Infection(UTI) -Patient presented hypothemic -CXR shows increased interstitial prominence of densities in bilateral lungs -COVID-19 PCR negative -Blood culture x2 NGTD -Antibiotic therapy course ended today 04/25 -Patient febrile this am, leukocytosis the same -UA with pyuria -Blood culture, and sputum culture pending -Continue current empiric IV abx -Monitor WBC and fever curve -Continue to F/U on B.cult -Daily CBC monitor -ID consulted #Endo:Hyperglycemia #s/p HHNK -Transition to SubQ insulin -Continue high dose SSI Q6hrs -Continue Basal, NPH -Avoid hypoglycemia #Heme:Thrombocytopenia-improved -Presented with low plt, unknow etiology -Plt count is improving -AC still on hold, might need to restart AC, will D/w CCM -Trend CBC -Transfuse to hemoglobin less than 7 -Monitor for bleeding -r/o DVT, BUE doppler neg -SCD to bilateral lower extremities while in bed The high probability of a clinically significant, sudden or life threatening deterioration of the [Neuro, Respiratory,ID] system(s) required my full and direct attention, intervention and personal management. The aggregate critical care time was [60] minutes. This time is in addition to time spent performing reported procedures but includes the following: [x] Data Review and interpretation [x] Patient assessment and monitoring of vital signs [x] Documentation [x] Medication orders and management Disposition Plan: ICU Total Time Spent with Patient (Minutes): 60 History Interval history: Patient seen and examined at the bedside. Mentation is unchanged. Febrile this am and still on low dose levophed gtt for hypotension. MARY overnight Hospitalist Physical - Constitutional Vitals: Temp Pulse Resp BP Pulse Ox 101.7 F H 102 H 23 124/55 100 05/01/21 07:31 05/01/21 08:00 05/01/21 08:00 05/01/21 08:00 05/01/21 08:00 General appearance: Present: no acute distress, other (Intubated and unresponsive) - EENT Eyes: Present: PERRL - Respiratory Respiratory effort: normal Respiratory: bilateral: rhonchi - Cardiovascular Rhythm: regular Heart Sounds: Present: S1 & S2 - Extremities Extremities: no ischemia, pulses intact, pulses symmetrical Extremity abnormal: edema - Peripheral Assessment Generalized Edema Type: Non-pitting Edema Degree: 2+ Capillary Refill: < 3 seconds Skin Temperature: Warm Peripheral Pulses: within normal limits - Abdominal General gastrointestinal: soft, non-tender, normal bowel sounds - Integumentary Integumentary: Present: warm, dry - Psychiatric Psychiatric: other (Intubated and unresponsive) - Neurologic Neurologic: other (Intubated and unresponsive) - Allied Health Allied health notes reviewed: nursing HEART Score - HEART Score Troponin: Troponin T 0.021 ng/mL (0.00-0.029) 04/20/21 17:10 Results - Labs CBC & Chem 7: 05/01/21 04:00 05/01/21 04:00 Labs: Laboratory Last Values WBC 12.0 K/mm3 (4.5-11.0) H 05/01/21 04:00 RBC 3.08 M/mm3 (3.65-5.03) L 05/01/21 04:00 Hgb 8.1 gm/dl (10.1-14.3) L 05/01/21 04:00 Hct 25.6 % (30.3-42.9) L 05/01/21 04:00 MCV 83 fl (79-97) 05/01/21 04:00 MCH 26 pg (28-32) L 05/01/21 04:00 MCHC 32 % (30-34) 05/01/21 04:00 RDW 16.3 % (13.2-15.2) H 05/01/21 04:00 Plt Count 173 K/mm3 (140-440) 05/01/21 04:00 Add Manual Diff Complete 04/28/21 04:00 Total Counted 100 04/28/21 04:00 Seg Neutrophils % Foreign Language Professor 04/28/21 04:00 Seg Neuts % (Manual) 77.0 % (40.0-70.0) H 04/26/21 09:33 Band Neutrophils % 2.0 % 04/28/21 04:00 Lymphocytes % (Manual) 1.0 % (13.4-35.0) L 04/28/21 04:00 Reactive Lymphs % (Man) 0 % 04/28/21 04:00 Monocytes % (Manual) 1.0 % (0.0-7.3) 04/28/21 04:00 Eosinophils % (Manual) 3.0 % (0.0-4.3) 04/28/21 04:00 Metamyelocytes % 1.0 % 04/28/21 04:00 Myelocytes % 0 % 04/28/21 04:00 Promyelocytes % 0 % 04/28/21 04:00 Blast Cells % 0 % 04/28/21 04:00 Nucleated RBC % 4.0 % (0.0-0.9) H 04/28/21 04:00 Seg Neutrophils # Man 11.6 K/mm3 (1.8-7.7) H 04/28/21 04:00 Band Neutrophils # 0.3 K/mm3 04/28/21 04:00 Lymphocytes # (Manual) 0.1 K/mm3 (1.2-5.4) L 04/28/21 04:00 Abs React Lymphs (Man) 0.0 K/mm3 04/28/21 04:00 Monocytes # (Manual) 0.1 K/mm3 (0.0-0.8) 04/28/21 04:00 Eosinophils # (Manual) 0.4 K/mm3 (0.0-0.4) 04/28/21 04:00 Basophils # (Manual) 0.0 K/mm3 (0.0-0.1) 04/28/21 04:00 Metamyelocytes # 0.1 K/mm3 04/28/21 04:00 Myelocytes # 0.0 K/mm3 04/28/21 04:00 Promyelocytes # 0.0 K/mm3 04/28/21 04:00 Blast Cells # 0.0 K/mm3 04/28/21 04:00 WBC Morphology Not Reportable 04/28/21 04:00 Hypersegmented Neuts Not Reportable 04/28/21 04:00 Hyposegmented Neuts Not Reportable 04/28/21 04:00 Hypogranular Neuts Not Reportable 04/28/21 04:00 Smudge Cells Not Reportable 04/28/21 04:00 Toxic Granulation Not Reportable 04/28/21 04:00 Toxic Vacuolation Not Reportable 04/28/21 04:00 Dohle Bodies Not Reportable 04/28/21 04:00 Pelger-Huet Anomaly Not Reportable 04/28/21 04:00 Moni Rods Not Reportable 04/28/21 04:00 Platelet Estimate Consistent w auto 04/28/21 04:00 Clumped Platelets Not Reportable 04/28/21 04:00 Plt Clumps, EDTA Not Reportable 04/28/21 04:00 Large Platelets Few 04/28/21 04:00 Giant Platelets Not Reportable 04/28/21 04:00 Platelet Satelliting Not Reportable 04/28/21 04:00 Plt Morphology Comment Not Reportable 04/28/21 04:00 RBC Morphology Not Reportable 04/28/21 04:00 Dimorphic RBCs Not Reportable 04/28/21 04:00 Polychromasia Not Reportable 04/28/21 04:00 Hypochromasia Not Reportable 04/28/21 04:00 Poikilocytosis Not Reportable 04/28/21 04:00 Anisocytosis Not Reportable 04/28/21 04:00 Microcytosis Not Reportable 04/28/21 04:00 Macrocytosis Not Reportable 04/28/21 04:00 Spherocytes Not Reportable 04/28/21 04:00 Pappenheimer Bodies Not Reportable 04/28/21 04:00 Sickle Cells Not Reportable 04/28/21 04:00 Target Cells 1+ 04/28/21 04:00 Tear Drop Cells Not Reportable 04/28/21 04:00 Ovalocytes Not Reportable 04/28/21 04:00 Helmet Cells Not Reportable 04/28/21 04:00 Parkinson-Henderson Bodies Not Reportable 04/28/21 04:00 [place] Rings Not Reportable 04/28/21 04:00 Cyclone Cells Not Reportable 04/28/21 04:00 Bite Cells Not Reportable 04/28/21 04:00 Crenated Cell Not Reportable 04/28/21 04:00 Elliptocytes Not Reportable 04/28/21 04:00 Acanthocytes (Spur) Not Reportable 04/28/21 04:00 Rouleaux Not Reportable 04/28/21 04:00 Hemoglobin C Crystals Not Reportable 04/28/21 04:00 Schistocytes Not Reportable 04/28/21 04:00 Malaria parasites Not Reportable 04/28/21 04:00 Herrera Bodies Not Reportable 04/28/21 04:00 Hem Pathologist Commnt No 04/28/21 04:00 PT 15.3 Sec. (12.2-14.9) H 04/28/21 05:00 INR 1.09 (0.87-1.13) 04/28/21 05:00 APTT 36.6 Sec. (24.2-36.6) 04/28/21 05:00 Heparin Anti-Xa, Unfract Negative (Negative) 04/24/21 17:29 ABG pH 7.493 (7.320-7.450) H 05/01/21 03:30 POC ABG pCO2 33.3 mmHg (32.0-48.0) 05/01/21 03:30 ABG pCO2 31.6 mm Hg 04/21/21 15:47 POC ABG pO2 89.9 mmHg (83-108) 05/01/21 03:30 ABG pO2 168.1 mm Hg (80.0-90.0) H 04/21/21 15:47 POC ABG HCO3 25.0 05/01/21 03:30 ABG HCO3 23.3 mmol/L (20.0-26.0) 04/21/21 15:47 ABG O2 Saturation 97.1 (0-100) 05/01/21 03:30 ABG O2 Content 12.7 (0.0-44) 04/21/21 15:47 POC ABG Base Excess 1.9 05/01/21 03:30 ABG Base Excess 0.3 mmol/L (-2.0-3.0) 04/21/21 15:47 ABG Hemoglobin 25.0 (12.0-17.5) H 05/01/21 03:30 ABG Oxyhemoglobin 96.4 (94-98) 05/01/21 03:30 ABG Carboxyhemoglobin 1.0 % (0.0-5.0) 04/21/21 15:47 ABG Methemoglobin 0.3 (0.0-1.5) 05/01/21 03:30 ABG Sodium 140.8 mmol/L (136.0-145.0) 05/01/21 03:30 ABG Potassium 3.5 mmol/L (3.40-4.50) 05/01/21 03:30 ABG Chloride 104.0 mmol/L (98-107) 05/01/21 03:30 ABG Glucose 167 mg/dL (65-95) H 05/01/21 03:30 VBG pH 7.397 (7.320-7.420) 04/20/21 17:10 Oxyhemoglobin 97.5 % (95.0-99.0) 04/21/21 15:47 Carboxyhemoglobin 0.4 (0.5-1.5) L 05/01/21 03:30 FiO2 100 % 04/21/21 15:47 FiO2 % 50.0 05/01/21 03:30 Sodium 142 mmol/L (137-145) 05/01/21 04:00 Potassium 3.5 mmol/L (3.6-5.0) L 05/01/21 04:00 Chloride 104.7 mmol/L (98-107) 05/01/21 04:00 Carbon Dioxide 24 mmol/L (22-30) 05/01/21 04:00 Anion Gap 17 mmol/L 05/01/21 04:00 BUN 62 mg/dL (7-17) H 05/01/21 04:00 Creatinine 3.3 mg/dL (0.6-1.2) H 05/01/21 04:00 Estimated GFR 16 ml/min 05/01/21 04:00 BUN/Creatinine Ratio 19 % 05/01/21 04:00 Glucose 179 mg/dL (65-100) H 05/01/21 04:00 POC Glucose 167 mg/dL (70-105) H 05/01/21 11:49 Hemoglobin A1c 17.1 % (4-6) H 04/22/21 15:55 Lactic Acid 1.90 mmol/L (0.7-2.0) 04/20/21 19:56 Calcium 8.3 mg/dL (8.4-10.2) L 05/01/21 04:00 Phosphorus 3.80 mg/dL (2.5-4.5) D 05/01/21 04:00 Magnesium 1.80 mg/dL (1.7-2.3) 05/01/21 04:00 Iron 62 ug/dL (37-170) 04/24/21 17:29 TIBC 285 mcg/dL (250-450) 04/24/21 17:29 % Saturation 21.75 % 04/24/21 17:29 Transferrin 112 mg/dl (192-382) L 04/24/21 17:29 Total Bilirubin 0.30 mg/dL (0.1-1.2) 04/29/21 04:00 Direct Bilirubin < 0.2 mg/dL (0-0.2) 04/29/21 04:00 Indirect Bilirubin 0.1 mg/dL 04/29/21 04:00 AST 61 units/L (5-40) H 04/29/21 04:00 ALT 71 units/L (7-56) H 04/29/21 04:00 Alkaline Phosphatase 170 units/L (35-129) H 04/29/21 04:00 Ammonia 29.0 umol/L (25-60) 04/20/21 17:10 Total Creatine Kinase 1000 units/L (30-135) H 04/27/21 07:43 CK-MB (CK-2) 36.0 ng/mL (0.0-4.0) H 04/20/21 17:10 CK-MB (CK-2) Rel Index 0.9 (0-4) 04/20/21 17:10 Troponin T 0.021 ng/mL (0.00-0.029) 04/20/21 17:10 Serum Total Protein 5.5 g/dL (6.1-8.1) L 04/22/21 08:59 Total Protein 5.1 g/dL (6.3-8.2) L 04/29/21 04:00 Albumin 1.6 g/dL (3.9-5) L 04/29/21 04:00 Albumin/Globulin Ratio 0.5 % 04/29/21 04:00 Cewmz-4-Gztrlgpua 0.6 g/dL (0.2-0.3) H 04/22/21 08:59 Wzwyj-5-Nipxncvcl 1.0 g/dL (0.5-0.9) H 04/22/21 08:59 Beta Globulins 0.3 g/dL (0.2-0.5) 04/22/21 08:59 Gamma Globulins 0.6 g/dL (0.8-1.7) L 04/22/21 08:59 Abnorm Protein Band 1 see below 04/22/21 08:59 PEP Interpretation see below H 04/22/21 08:59 TSH 6.040 mlU/mL (0.270-4.200) H 04/20/21 17:10 Free T4 0.93 ng/dL (0.76-1.46) 04/20/21 17:10 Arterial Blood Glucose 167 mg/dL (65-95) H 05/01/21 03:30 Arterial Blood Ionized Calcium 4.5 mg/dL (4.6-5.3) L 04/28/21 05:18 Urine Color Yellow (Yellow) 04/29/21 13:30 Urine Turbidity Turbid (Clear) 04/29/21 13:30 Urine pH 5.0 (5.0-7.0) 04/29/21 13:30 Ur Specific [place] 1.010 (1.003-1.030) 04/29/21 13:30 Urine Protein 100 mg/dl mg/dL (Negative) 04/29/21 13:30 Urine Glucose (UA) 150 mg/dL (Negative) 04/29/21 13:30 Urine Ketones Neg mg/dL (Negative) 04/29/21 13:30 Urine Blood Lg (Negative) 04/29/21 13:30 Urine Nitrite Neg (Negative) 04/29/21 13:30 Urine Bilirubin Neg (Negative) 04/29/21 13:30 Urine Urobilinogen < 2.0 mg/dL (<2.0) 04/29/21 13:30 Ur Leukocyte Esterase Lg (Negative) 04/29/21 13:30 Urine WBC (Auto) > 182.0 /HPF (0.0-6.0) H 04/29/21 13:30 Urine RBC (Auto) > 182.0 /HPF (0.0-6.0) 04/29/21 13:30 U Epithel Cells (Auto) 4.0 /HPF (0-13.0) 04/29/21 13:30 Urine WBC Clumps 3+ /HPF 04/29/21 13:30 Urine Mucus Few /HPF 04/29/21 13:30 Urine Yeast (Budding) 3+ /HPF 04/29/21 13:30 Urine Osmolality 446 Mosm/kg 04/21/21 08:01 Urine Creatinine 44.3 mg/dL (0.1-20.0) H 04/21/21 08:01 Urine Sodium 71 mmol/L 04/21/21 08:01 Urine Total Protein 12 mg/dL (5-11.8) H 04/21/21 08:01 CSF Appearance Clear 04/29/21 11:45 CSF Color Colorless 04/29/21 11:45 CSF WBC 14 /mm3 (1-10) 04/29/21 11:45 CSF RBC 324 /mm3 (0-0) 04/29/21 11:45 CSF Seg Neutrophils 50.0 % (0-6) 04/29/21 11:45 CSF Lymphocytes % 40.0 % (40-80) 04/29/21 11:45 CSF Reactive Lymphs Not Reportable 04/29/21 11:45 CSF Monocytes % 10.0 % (15-45) 04/29/21 11:45 CSF Eosinophils % Not Reportable 04/29/21 11:45 CSF Basophils Not Reportable 04/29/21 11:45 CSF Pathologist Review C 04/29/21 11:45 CSF Glucose 161 mg/dL 04/29/21 11:45 CSF Total Protein 51 mg/dL 04/29/21 11:45 Plasma/Serum Alcohol < 0.01 % (0-0.07) 04/20/21 17:10 Heparin-induced Plt Ab Negative (Negative) 04/24/21 17:29 UF Heparin High Dose 1 % Release 04/24/21 17:29 EFE UFH Low Dose 0.1 0 % Release 04/24/21 17:29 EFE UFH Low Dose 0.5 0 % Release 04/24/21 17:29 Coronavirus (PCR) Negative (Negative) 04/21/21 Unknown Hepatitis A IgM Ab Non-reactive (NonReactive) 04/27/21 12:49 Hep Bs Antigen Nonreactive (Negative) 04/27/21 12:49 Hep B Core IgM Ab Non-reactive (NonReactive) 04/27/21 12:49 Hepatitis C Antibody Non-reactive (NonReactive) 04/27/21 12:49 Microbiology: Microbiology 04/29/21 13:15 Peripheral/Venous Blood Culture - Preliminary NO GROWTH AFTER 24 HOURS 04/29/21 11:56 Tracheal Aspirate Sputum Culture - Preliminary Luther/IV: Voiding Method Indwelling Catheter Active Medications - Current Medications Current Medications: Generic Name Dose Route Start Last Admin Trade Name Freq PRN Reason Stop Dose Admin Acetaminophen 650 mg 04/20/21 21:31 05/01/21 07:40 Acetaminophen 325 Mg Tab PO 650 mg Q4H PRN Administration Pain MILD(1-3)/Fever >100.5/TURCIOS Albuterol 2.5 mg 04/22/21 14:49 04/23/21 15:18 Albuterol 2.5 Mg/3 Ml Nebu IH 2.5 mg Q4HRT PRN Administration Shortness Of Breath Lipase/Protease/Amylase 1 each 04/25/21 14:13 Lipase 10,500/Protease 25,000/Amylase 43,750 (Units) Dr Vasquez FEEDTUBE PRN PRN For Clogged Feeding Tube Dextrose 50 ml 04/24/21 11:36 Dextrose 50% In Water (25gm) 50 Ml Syringe IV Q30MIN PRN Hypoglycemia Protocol Famotidine 10 mg 04/27/21 10:00 05/01/21 10:00 Famotidine 10 Mg Tab FEEDTUBE 10 mg BID AZIZA Administration Hydralazine HCl 10 mg 04/24/21 21:22 Hydralazine 20 Mg/1 Ml Inj IV Q4HR PRN elevated BP Hydrophilic Ointment 1 applic 04/26/21 11:16 Lip Therapy Vaseline TP Q2HR PRN Dry Lips NORepinephrine/NS 8 MG-250 ML 8 mg in 250 mls @ 3.75 mls/hr 04/26/21 16:00 05/01/21 10:01 Norepinephrine/Ns 8 Mg-250 Ml (Double Conc) IV 2 mcg/min TITRATE AZIZA 3.75 mls/hr Administration Protocol 2 MCG/MIN Cefepime HCl 2 gm in 100 mls @ 200 mls/hr 04/29/21 22:00 04/30/21 22:17 Cefepime/Ns 2 Gm/100 Ml IV 200 mls/hr Q24H AZIZA Administration Protocol Sodium Chloride 100 mls @ 999 mls/hr 04/30/21 11:00 Nacl 0.9% IV MITCH PRN Hypotension Sodium Chloride 100 mls @ 999 mls/hr 04/30/21 12:10 Nacl 0.9% IV MITCH PRN Hypotension Insulin Human Lispro 0 unit 04/25/21 18:00 05/01/21 06:09 Insulin Lispro 100 Unit/Ml SUB-Q 3 unit Q6HR AZIZA Administration Protocol Insulin Human NPH 40 unit 04/30/21 10:00 05/01/21 10:00 Insulin Nph, Human 100 Unit/1 Ml SUB-Q 40 unit Q12HR AZIZA Administration Lorazepam 1 mg 04/26/21 11:15 04/30/21 23:00 Lorazepam 2 Mg/Ml Vial IV 1 mg Q4H PRN Administration Sedation Metoclopramide HCl 5 mg 04/20/21 21:31 Metoclopramide 10 Mg/2 Ml Inj IV Q6H PRN Nausea And Vomiting Multi-Ingred Cream/Lotion/Oil/Oint 1 applic 04/26/21 11:16 Mineral Oil/Petrolatum, White Ophth Oint 3.5 Gm OU Q4HR PRN Dry Eye(s) Ondansetron HCl 4 mg 04/20/21 21:31 Ondansetron 4 Mg/2 Ml Inj IV Q8H PRN Nausea And Vomiting Senna/Docusate Sodium 1 tab 04/26/21 22:00 05/01/21 10:00 Sennosides/Docusate Sodium 8.6/50 Mg Tab FEEDTUBE 1 tab BID AZIZA Administration Simple Syrup 15 ml 04/25/21 14:13 Simple Syrup 15 Ml FEEDTUBE PRN PRN Hypoglycemia Simple Syrup 30 ml 04/25/21 14:13 Simple Syrup 15 Ml FEEDTUBE PRN PRN Hypoglycemia Sodium Bicarbonate 325 mg 04/25/21 14:13 04/27/21 13:00 Sodium Bicarbonate 325 Mg Tab FEEDTUBE 325 mg PRN PRN Administration For Clogged Feeding Tube Sodium Bicarbonate 1,300 mg 04/27/21 14:00 05/01/21 07:41 Sodium Bicarbonate 650 Mg Tab PO 1,300 mg TID AZIZA Administration Sodium Chloride 10 ml 04/20/21 22:00 05/01/21 10:00 Sodium Chloride 0.9% 10 Ml Flush Syringe IV 10 ml BID AZIZA Administration Sodium Chloride 10 ml 04/20/21 21:31 Sodium Chloride 0.9% 10 Ml Flush Syringe IV PRN PRN LINE FLUSH Nutrition/Malnutrition Assess - Dietary Evaluation Nutrition/Malnutrition Findings: Nutrition Notes Start: 04/21/21 12:15 Freq: Status: Active Protocol: Document 04/29/21 14:05 TAMMY (Rec: 04/29/21 14:17 [facility] [id number]) Nutrition Notes Initial or Follow up Reassessment Current Diagnosis Acute Kidney Injury, Respiratory Failure, Hyperlipidemia Other Pertinent Diagnosis Acute metabolic encephalopathy , Dehydration, Hyperosmolar non-ketotic state Current Diet TF-Nepro 27 ml/hr Labs/Tests BUN 63 Cr 3.4 BG 249 Elevated LFTs Pertinent Medications Levophed gtt, Senokot Height 5 ft 2 in Weight 72.4 kg [employer] Body Weight (kg) 50.00 BMI 29.2 Weight Status Overweight Subjective/Other Information Pt received first HD on 04/27 and second HD yesterday. No HD needed today, per nephrology. HD needs to be assessed daily. Observed Nepro infusing at 45ml/hr at time of visit (12:29). RN informed of correct TF rate. Pt remains on vent support. Percent of energy/protein needs met: 140% energy 100% pro Burn Absent Trauma Absent #1 Nutrition Diagnosis Inadequate oral intake Diagnosis Progress(for reassessment Continues documentation) Is patient on ventilator? Yes Is Patient Ambulatory and/or Out of Bed No REE-([facility]-confined to bed) [phone] Calculation Used for Recommendations Sofya Jimenez Additional Notes Pro needs >1.2g/kg: >87g/day Fluid needs 1-1.5L/day Nutrition Intervention Nutrition Support: Decrease current TF rate to 32ml/hr and provide 140ml water flush q4h. Kcal 1,382 Protein (gm) 62 Carbohydrates (gm) 124 Fat (gm) 74 Fluid (mL) 558 Fiber (gm) 10 Goal #1 TF tolerance Goal #2 TF to meet at least 75% energy and pro needs Follow-Up By: 05/04/21 Additional Comments F/U: stable TF, vent status, renal function
[2021-05-01] MEDS ORDERED: SODIUM CHLORIDE 0.9% 100 ML IV PRN (12:44)
[2021-05-01] MEDS: CEFEPIME/NS 2 GM/100 ML 2 GM/100 ML BAG IV SCH (22:07)
[2021-05-02] MEDS: INSULIN LISPRO 100 UNIT/ML SUB-Q SCH ×4 (00:18→17:38)
--- NOTE | 2021-05-02 03:27 | XRay Report ---
CHEST - 1 VIEW INDICATION: follow up respiratory failure COMPARISON: Yesterday FINDINGS: SUPPORT DEVICES: Stable support device positioning. HEART: Stable cardiomediastinal silhouette. LUNGS/PLEURA: Persistent mild patchy multifocal airspace disease. ADDITIONAL FINDINGS: None. IMPRESSION: Unchanged exam. Signer Name: Jin Harris MD Signed: 05/02/2021 3:23 AM Workstation Name: [id number]
[2021-05-02 06:12] LABS: Calcium 8.8 mg/dL (8.4-10.2)
[2021-05-02 07:21] LABS: Hematocrit 22.1 % (30.3-42.9); Hemoglobin 6.9 gm/dl (10.1-14.3); Mean Corpuscular HGB Conc 31 % (30-34); Mean Corpuscular Volume 85 fl (79-97); Platelet Count 198 K/mm3 (140-440); Red Blood Count 2.61 M/mm3 (3.65-5.03); Red Cell Distribution Width 16.1 % (13.2-15.2)
[2021-05-02] MEDS ORDERED: SODIUM CHLORIDE 0.9% 500 ML 500 ML IV ONE (09:06)
[2021-05-02] MEDS: SODIUM BICARBONATE 650 MG TAB PO SCH ×3 (09:30→21:25)
[2021-05-02] MEDS: INSULIN NPH, HUMAN 100 UNIT/1 ML SUB-Q SCH ×2 (09:30→21:25)
[2021-05-02] MEDS: SENNOSIDES/DOCUSATE SODIUM 8.6/50 MG TAB FEEDTUBE SCH ×2 (09:30→21:25)
[2021-05-02] MEDS: FAMOTIDINE 10 MG TAB FEEDTUBE SCH ×2 (09:30→21:25)
--- NOTE | 2021-05-02 11:14 | Consultation ---
History of Present Illness - Reason for Consult Consult date: 05/02/21 sepsis Requesting physician: LISA CLIFTON - History of Present Illness The patient is a 80-year-old female who is a [facility] resident, with hypothyroidism, GERD, hyperlipidemia, schizophrenia, dementia was admitted on 04/20/2021 after being found unresponsive by the staff. Upon evaluation in the ER, initial labs concerning for diabetic hyperosmolar nonketotic state, acute kidney injury, severe hypernatremia of 173 which peaked at 179. Also with acute encephalopathy, initially required BiPAP. Received empiric antibiotics due to initial leukocytosis and coverage for pneumonia. Started on dialysis for her acute renal failure. Was subsequently intubated on 04/26/2021. Lumbar puncture with CSF showing 14 WBC, 324 RBC, glucose 161, protein 51. Over the last 1 week, leukocytosis has gradually been worsening, patient also spiking intermittent fevers with a T-max of 101.7 F yesterday morning. Review of Systems: Unable to obtain, intubated Past History Past Medical History: other (Dementia, GERD) Past Surgical History: Other (unable to obtain.) Social history: other (unable to obtain) Family history: other (unable to obtain) Medications and Allergies Allergies Allergy/AdvReac Type Severity Reaction Status Date / Time No Known Allergies Allergy Unverified 04/20/21 14:35 Active Meds: Active Medications Acetaminophen (Acetaminophen 325 Mg Tab) 650 mg PO Q4H PRN PRN Reason: Pain MILD(1-3)/Fever >100.5/TURCIOS Last Admin: 05/01/21 18:15 Dose: 650 mg Albuterol (Albuterol 2.5 Mg/3 Ml Nebu) 2.5 mg IH Q4HRT PRN PRN Reason: Shortness Of Breath Last Admin: 04/23/21 15:18 Dose: 2.5 mg Lipase/Protease/Amylase (Lipase 10,500/Protease 25,000/Amylase 43,750 (Units) Dr Vasquez) 1 each FEEDTUBE PRN PRN PRN Reason: For Clogged Feeding Tube Dextrose (Dextrose 50% In Water (25gm) 50 Ml Syringe) 50 ml IV Q30MIN PRN; Protocol PRN Reason: Hypoglycemia Famotidine (Famotidine 10 Mg Tab) 10 mg FEEDTUBE BID AZIZA Last Admin: 05/02/21 09:30 Dose: 10 mg Hydralazine HCl (Hydralazine 20 Mg/1 Ml Inj) 10 mg IV Q4HR PRN PRN Reason: elevated BP Hydrophilic Ointment (Lip Therapy Vaseline) 1 applic TP Q2HR PRN PRN Reason: Dry Lips NORepinephrine/NS 8 MG-250 ML (Norepinephrine/Ns 8 Mg-250 Ml (Double Conc)) 8 mg in 250 mls @ 3.75 mls/hr IV TITRATE [facility]; Protocol Last Titration: 05/02/21 08:30 Dose: 4 mcg/min, 7.5 mls/hr Sodium Chloride (Nacl 0.9%) 100 mls @ 999 mls/hr IV MITCH PRN PRN Reason: Hypotension MEROPENEM/NS 1 GRAM/100 ML (Merrem/Ns 1 Gram/100 Ml) 1 gram in 100 mls @ 100 mls/hr IV Q24H [facility]; Protocol Insulin Human Lispro (Insulin Lispro 100 Unit/Ml) 0 unit SUB-Q Q6HR [facility]; Protocol Last Admin: 05/02/21 05:32 Dose: Not Given Insulin Human NPH (Insulin Nph, Human 100 Unit/1 Ml) 40 unit SUB-Q Q12HR [facility] Last Admin: 05/02/21 09:30 Dose: 40 unit Lorazepam (Lorazepam 2 Mg/Ml Vial) 1 mg IV Q4H PRN PRN Reason: Sedation Last Admin: 04/30/21 23:00 Dose: 1 mg Metoclopramide HCl (Metoclopramide 10 Mg/2 Ml Inj) 5 mg IV Q6H PRN PRN Reason: Nausea And Vomiting Multi-Ingred Cream/Lotion/Oil/Oint (Mineral Oil/Petrolatum, White Ophth Oint 3.5 Gm) 1 applic OU Q4HR PRN PRN Reason: Dry Eye(s) Ondansetron HCl (Ondansetron 4 Mg/2 Ml Inj) 4 mg IV Q8H PRN PRN Reason: Nausea And Vomiting Senna/Docusate Sodium (Sennosides/Docusate Sodium 8.6/50 Mg Tab) 1 tab FEEDTUBE BID [facility] Last Admin: 05/02/21 09:30 Dose: 1 tab Simple Syrup (Simple Syrup 15 Ml) 15 ml FEEDTUBE PRN PRN PRN Reason: Hypoglycemia Simple Syrup (Simple Syrup 15 Ml) 30 ml FEEDTUBE PRN PRN PRN Reason: Hypoglycemia Sodium Bicarbonate (Sodium Bicarbonate 325 Mg Tab) 325 mg FEEDTUBE PRN PRN PRN Reason: For Clogged Feeding Tube Last Admin: 04/27/21 13:00 Dose: 325 mg Sodium Bicarbonate (Sodium Bicarbonate 650 Mg Tab) 1,300 mg PO TID [facility] Last Admin: 05/02/21 09:30 Dose: 1,300 mg Sodium Chloride (Sodium Chloride 0.9% 10 Ml Flush Syringe) 10 ml IV BID [facility] Last Admin: 05/02/21 09:30 Dose: 10 ml Sodium Chloride (Sodium Chloride 0.9% 10 Ml Flush Syringe) 10 ml IV PRN PRN PRN Reason: LINE FLUSH Physical Examination - Physical Exam Narrative exam: Physical Exam: Constitutional: sedated, intubated, on the vent Head, Ears, Nose: Normocephalic, atraumatic. External ears, nose normal Eyes: Conjunctivae/corneas clear. No icterus. No ptosis. Neck: intubated Oral: intubated Cardiovascular: S1, S2 + Respiratory: AE fair bilaterally and equal GI: Soft, bowel sounds + Musculoskeletal: Anasarca + Skin: No rash or abscess Hem/Lymphatic: No palpable cervical or supraclavicular nodes. No lymphangitis Psych: no agitation Neurological: sedated, intubated, on the vent, exam limited - Constitutional Vitals: Vital Signs Temp Pulse Resp BP Pulse Ox 99.1 F 93 H 16 96/45 98 05/02/21 08:00 05/02/21 11:00 05/02/21 11:00 05/02/21 11:00 05/02/21 11:00 Temperature -Last 24 Hours Temperature 99.1 F Temperature 98.2 F Temperature 97.9 F Temperature 97.7 F Temperature 100.6 F Temperature 98.1 F Temperature 100.2 F Temperature 100.2 F Results - Labs CBC & Chem 7: 05/02/21 04:00 05/02/21 04:00 Labs: Abnormal lab results 05/01/21 05/01/21 05/01/21 Range/Units 11:49 16:24 23:25 WBC (4.5-11.0) K/mm3 RBC (3.65-5.03) M/mm3 Hgb (10.1-14.3) gm/dl Hct (30.3-42.9) % MCH (28-32) pg RDW (13.2-15.2) % ABG pH (7.320-7.450) POC ABG pO2 (83-108) mmHg ABG Hemoglobin (12.0-17.5) ABG Glucose (65-95) mg/dL BUN (7-17) mg/dL Creatinine (0.6-1.2) mg/dL Glucose (65-100) mg/dL POC Glucose 167 H 157 H 147 H (70-105) mg/dL Arterial Blood Glucose (65-95) mg/dL 05/02/21 05/02/21 05/02/21 Range/Units 04:00 04:00 04:34 WBC 14.2 H (4.5-11.0) K/mm3 RBC 2.61 L (3.65-5.03) M/mm3 Hgb 6.9 L (10.1-14.3) gm/dl Hct 22.1 L (30.3-42.9) % MCH 27 L (28-32) pg RDW 16.1 H (13.2-15.2) % ABG pH 7.487 H (7.320-7.450) POC ABG pO2 78.6 L (83-108) mmHg ABG Hemoglobin 11.5 L (12.0-17.5) ABG Glucose 122 H (65-95) mg/dL BUN 49 H (7-17) mg/dL Creatinine 2.8 H (0.6-1.2) mg/dL Glucose 117 H (65-100) mg/dL POC Glucose (70-105) mg/dL Arterial Blood Glucose 122 H (65-95) mg/dL 05/02/21 Range/Units 05:23 WBC (4.5-11.0) K/mm3 RBC (3.65-5.03) M/mm3 Hgb (10.1-14.3) gm/dl Hct (30.3-42.9) % MCH (28-32) pg RDW (13.2-15.2) % ABG pH (7.320-7.450) POC ABG pO2 (83-108) mmHg ABG Hemoglobin (12.0-17.5) ABG Glucose (65-95) mg/dL BUN (7-17) mg/dL Creatinine (0.6-1.2) mg/dL Glucose (65-100) mg/dL POC Glucose 119 H (70-105) mg/dL Arterial Blood Glucose (65-95) mg/dL - Imaging and Cardiology Chest x-ray: report reviewed, image reviewed (patchy b/l airspace disease) Assessment and Plan Cultures: 04/21/2021 blood culture: No growth 04/21/2021 COVID-19 PCR: Negative 04/26/2021 sputum culture: Roselyn nonalbicans 04/29/2021 tracheal aspirate culture: Moderate growth of usual respiratory stanley 04/29/2021 blood culture: No growth A/P: 80-year-old female who is a [facility] resident, with hypothyroidism, GERD, hyperlipidemia, schizophrenia, dementia was admitted on 04/20/2021 after being found unresponsive by the staff: #Septic shock: Likely from pneumonia and UTI. 04/29/2021 UA showed significant pyuria. #Acute respiratory failure: On the vent #Acute renal failure: Renally adjust antibiotics. On dialysis. #Acute metabolic encephalopathy: Initially related to severe hyponatremia which peaked at sodium of 179. Recs: -Exchange Luther, urine culture ordered -Antibiotics switched to IV meropenem, renally adjusted Juanita Darling MD, FACP, [facility] ([facility] O: [phone] F: [phone]
[2021-05-02] MEDS ORDERED: MEROPENEM/NS 1 GRAM/100 ML 1 GRAM/100 ML BAG IV SCH (12:00)
--- NOTE | 2021-05-02 12:57 | Progress Note ---
Assessment and Plan (1) Acute metabolic encephalopathy (2) Diabetic hyperosmolar non-ketotic state 3) SYED (acute kidney injury) (4) Dehydration (5) Hypernatremia (6) Rhabdomyolysis (7) Hypernatremia 8) GERD (gastroesophageal reflux disease) (9) Metabolic acidosis (10) Leukocytosis HD again today for clearance and UF On Levophed. Will titrate to keep MAP >65 during HD Intubated on Vent. Monitor Ck renally dose meds Strict I&O In ICU Subjective Date of service: 05/02/21 Principal diagnosis: Acute respiratory failure Interval history: pt is intubated with worsening anemia. She is being transfused with hemodialysis Objective - Vital Signs Vital signs: Vital Signs - 12hr 05/02/21 05/02/21 05/02/21 01:00 01:15 01:30 Temperature Pulse Rate 93 H 98 H 95 H Pulse Rate [ From Monitor] Respiratory 24 16 22 Rate Blood Pressure 114/49 115/48 118/45 O2 Sat by Pulse 99 99 99 Oximetry O2 Sat by Pulse Oximetry [ Anterior Bilateral Throughout] O2 Sat by Pulse Oximetry [ Anterior Right Upper Lobe] 05/02/21 05/02/21 05/02/21 01:45 02:00 02:15 Temperature Pulse Rate 92 H 82 93 H Pulse Rate [ From Monitor] Respiratory 17 27 H 19 Rate Blood Pressure 111/46 105/55 108/48 O2 Sat by Pulse 98 99 98 Oximetry O2 Sat by Pulse Oximetry [ Anterior Bilateral Throughout] O2 Sat by Pulse Oximetry [ Anterior Right Upper Lobe] 05/02/21 05/02/21 05/02/21 02:30 02:45 03:00 Temperature Pulse Rate 95 H 113 H 95 H Pulse Rate [ From Monitor] Respiratory 22 17 17 Rate Blood Pressure 118/52 121/45 104/49 O2 Sat by Pulse 98 99 99 Oximetry O2 Sat by Pulse Oximetry [ Anterior Bilateral Throughout] O2 Sat by Pulse Oximetry [ Anterior Right Upper Lobe] 05/02/21 05/02/21 05/02/21 03:15 03:30 03:41 Temperature Pulse Rate 96 H 97 H 95 H Pulse Rate [ From Monitor] Respiratory 22 26 H Rate Blood Pressure 116/48 107/50 O2 Sat by Pulse 99 98 Oximetry O2 Sat by Pulse Oximetry [ Anterior Bilateral Throughout] O2 Sat by Pulse Oximetry [ Anterior Right Upper Lobe] 05/02/21 05/02/21 05/02/21 03:45 04:00 04:15 Temperature 98.2 F Pulse Rate 94 H 96 H 94 H Pulse Rate [ 95 H From Monitor] Respiratory 17 14 19 Rate Blood Pressure 103/46 109/50 117/46 O2 Sat by Pulse 99 96 99 Oximetry O2 Sat by Pulse Oximetry [ Anterior Bilateral Throughout] O2 Sat by Pulse Oximetry [ Anterior Right Upper Lobe] 05/02/21 05/02/21 05/02/21 04:24 04:30 04:45 Temperature Pulse Rate 99 H 92 H 100 H Pulse Rate [ From Monitor] Respiratory 15 20 Rate Blood Pressure 117/46 121/53 91/45 O2 Sat by Pulse 99 99 98 Oximetry O2 Sat by Pulse Oximetry [ Anterior Bilateral Throughout] O2 Sat by Pulse Oximetry [ Anterior Right Upper Lobe] 05/02/21 05/02/21 05/02/21 05:00 05:15 05:30 Temperature Pulse Rate 108 H 106 H 106 H Pulse Rate [ From Monitor] Respiratory 24 26 H 15 Rate Blood Pressure 96/43 97/47 94/43 O2 Sat by Pulse 98 99 98 Oximetry O2 Sat by Pulse Oximetry [ Anterior Bilateral Throughout] O2 Sat by Pulse Oximetry [ Anterior Right Upper Lobe] 05/02/21 05/02/21 05/02/21 05:45 06:00 06:15 Temperature Pulse Rate 107 H 100 H 100 H Pulse Rate [ From Monitor] Respiratory 30 H 19 22 Rate Blood Pressure 104/44 103/40 97/40 O2 Sat by Pulse 99 98 98 Oximetry O2 Sat by Pulse Oximetry [ Anterior Bilateral Throughout] O2 Sat by Pulse Oximetry [ Anterior Right Upper Lobe] 05/02/21 05/02/21 05/02/21 06:30 06:45 07:00 Temperature Pulse Rate 99 H 98 H 97 H Pulse Rate [ From Monitor] Respiratory 16 14 14 Rate Blood Pressure 94/37 87/42 97/39 O2 Sat by Pulse 99 99 99 Oximetry O2 Sat by Pulse Oximetry [ Anterior Bilateral Throughout] O2 Sat by Pulse Oximetry [ Anterior Right Upper Lobe] 05/02/21 05/02/21 05/02/21 07:15 07:30 07:45 Temperature Pulse Rate 92 H 89 91 H Pulse Rate [ From Monitor] Respiratory 16 17 17 Rate Blood Pressure 96/45 94/43 96/41 O2 Sat by Pulse 99 99 99 Oximetry O2 Sat by Pulse Oximetry [ Anterior Bilateral Throughout] O2 Sat by Pulse Oximetry [ Anterior Right Upper Lobe] 05/02/21 05/02/21 05/02/21 08:00 08:15 08:30 Temperature 99.1 F Pulse Rate 92 H 93 H 92 H Pulse Rate [ 94 H From Monitor] Respiratory 15 17 16 Rate Blood Pressure 85/44 95/46 92/40 O2 Sat by Pulse 99 98 99 Oximetry O2 Sat by Pulse Oximetry [ Anterior Bilateral Throughout] O2 Sat by Pulse Oximetry [ Anterior Right Upper Lobe] 05/02/21 05/02/21 05/02/21 08:45 09:00 09:15 Temperature Pulse Rate 90 90 86 Pulse Rate [ From Monitor] Respiratory 16 15 17 Rate Blood Pressure 102/48 102/47 101/47 O2 Sat by Pulse 99 99 99 Oximetry O2 Sat by Pulse Oximetry [ Anterior Bilateral Throughout] O2 Sat by Pulse Oximetry [ Anterior Right Upper Lobe] 05/02/21 05/02/21 05/02/21 09:30 09:45 10:00 Temperature Pulse Rate 98 H 102 H 98 H Pulse Rate [ From Monitor] Respiratory 18 21 15 Rate Blood Pressure 108/56 118/61 126/52 O2 Sat by Pulse 99 99 98 Oximetry O2 Sat by Pulse Oximetry [ Anterior Bilateral Throughout] O2 Sat by Pulse Oximetry [ Anterior Right Upper Lobe] 05/02/21 05/02/21 05/02/21 10:15 10:30 10:45 Temperature Pulse Rate 100 H 97 H 98 H Pulse Rate [ From Monitor] Respiratory 27 H 15 21 Rate Blood Pressure 121/51 105/45 109/45 O2 Sat by Pulse 98 98 98 Oximetry O2 Sat by Pulse Oximetry [ Anterior Bilateral Throughout] O2 Sat by Pulse Oximetry [ Anterior Right Upper Lobe] 05/02/21 05/02/21 05/02/21 11:00 11:15 11:30 Temperature Pulse Rate 93 H 93 H 103 H Pulse Rate [ From Monitor] Respiratory 16 18 22 Rate Blood Pressure 96/45 97/39 106/53 O2 Sat by Pulse 98 99 98 Oximetry O2 Sat by Pulse Oximetry [ Anterior Bilateral Throughout] O2 Sat by Pulse Oximetry [ Anterior Right Upper Lobe] 05/02/21 05/02/21 05/02/21 11:45 12:00 12:20 Temperature 98.8 F Pulse Rate 108 H 100 H 106 H Pulse Rate [ From Monitor] Respiratory 22 23 17 Rate Blood Pressure 106/51 93/51 113/20 O2 Sat by Pulse 99 100 Oximetry O2 Sat by Pulse 100 Oximetry [ Anterior Bilateral Throughout] O2 Sat by Pulse 99 Oximetry [ Anterior Right Upper Lobe] 05/02/21 12:25 Temperature Pulse Rate 105 H Pulse Rate [ From Monitor] Respiratory Rate Blood Pressure 132/64 O2 Sat by Pulse Oximetry O2 Sat by Pulse Oximetry [ Anterior Bilateral Throughout] O2 Sat by Pulse Oximetry [ Anterior Right Upper Lobe] - General Appearance General appearance: well-developed, well-nourished, intubated EENT: ATNC, PERRL, mucous membranes dry Neck: no JVD, no carotid bruit Respiratory: Present: Decreased Breath Sounds Cardiology: tachycardia Gastrointestinal: normoactive bowel sounds, no tenderness, no distended, no masses, no guarding Integumentary: no rash, warm and dry Neurologic: other (intubated) Musculoskeletal: other (edema in BLE) Psychiatric: other (intubated) - Lab 05/02/21 04:00 05/02/21 04:00 Most recent lab results ABG pH 7.487 (7.320-7.450) H 05/02/21 04:34 ABG pCO2 31.6 mm Hg 04/21/21 15:47 ABG pO2 168.1 mm Hg (80.0-90.0) H 04/21/21 15:47 ABG HCO3 23.3 mmol/L (20.0-26.0) 04/21/21 15:47 ABG O2 Saturation 96.0 (0-100) 05/02/21 04:34 Calcium 8.8 mg/dL (8.4-10.2) 05/02/21 04:00 Phosphorus 3.80 mg/dL (2.5-4.5) 05/02/21 04:00 Magnesium 1.80 mg/dL (1.7-2.3) 05/02/21 04:00 Urine Creatinine 44.3 mg/dL (0.1-20.0) H 04/21/21 08:01 Urine Sodium 71 mmol/L 04/21/21 08:01 Urine Total Protein 12 mg/dL (5-11.8) H 04/21/21 08:01 Medications & Allergies - Medications Allergies/Adverse Reactions: Allergies No Known Allergies Allergy (Unverified 04/20/21 14:35) Active Medications: Generic Name Dose Route Start Last Admin Trade Name Freq PRN Reason Stop Dose Admin Acetaminophen 650 mg 04/20/21 21:31 05/01/21 18:15 Acetaminophen 325 Mg Tab PO 650 mg Q4H PRN Administration Pain MILD(1-3)/Fever >100.5/TURCIOS Albuterol 2.5 mg 04/22/21 14:49 04/23/21 15:18 Albuterol 2.5 Mg/3 Ml Nebu IH 2.5 mg Q4HRT PRN Administration Shortness Of Breath Lipase/Protease/Amylase 1 each 04/25/21 14:13 Lipase 10,500/Protease 25,000/Amylase 43,750 (Units) Dr Vasquez FEEDTUBE PRN PRN For Clogged Feeding Tube Dextrose 50 ml 04/24/21 11:36 Dextrose 50% In Water (25gm) 50 Ml Syringe IV Q30MIN PRN Hypoglycemia Protocol Famotidine 10 mg 04/27/21 10:00 05/02/21 09:30 Famotidine 10 Mg Tab FEEDTUBE 10 mg BID AZIZA Administration Hydralazine HCl 10 mg 04/24/21 21:22 Hydralazine 20 Mg/1 Ml Inj IV Q4HR PRN elevated BP Hydrophilic Ointment 1 applic 04/26/21 11:16 Lip Therapy Vaseline TP Q2HR PRN Dry Lips NORepinephrine/NS 8 MG-250 ML 8 mg in 250 mls @ 3.75 mls/hr 04/26/21 16:00 05/02/21 08:30 Norepinephrine/Ns 8 Mg-250 Ml (Double Conc) IV 4 mcg/min TITRATE AZIZA 7.5 mls/hr Titration Protocol 2 MCG/MIN Sodium Chloride 100 mls @ 999 mls/hr 05/01/21 12:44 Nacl 0.9% IV MITCH PRN Hypotension MEROPENEM/NS 1 GRAM/100 ML 1 gram in 100 mls @ 100 mls/hr 05/02/21 12:00 Merrem/Ns 1 Gram/100 Ml IV Q24H AZIZA Protocol Insulin Human Lispro 0 unit 04/25/21 18:00 05/02/21 12:16 Insulin Lispro 100 Unit/Ml SUB-Q Not Given Q6HR AZIZA Protocol Insulin Human NPH 40 unit 04/30/21 10:00 05/02/21 09:30 Insulin Nph, Human 100 Unit/1 Ml SUB-Q 40 unit Q12HR AZIZA Administration Lorazepam 1 mg 04/26/21 11:15 04/30/21 23:00 Lorazepam 2 Mg/Ml Vial IV 1 mg Q4H PRN Administration Sedation Metoclopramide HCl 5 mg 04/20/21 21:31 Metoclopramide 10 Mg/2 Ml Inj IV Q6H PRN Nausea And Vomiting Multi-Ingred Cream/Lotion/Oil/Oint 1 applic 04/26/21 11:16 Mineral Oil/Petrolatum, White Ophth Oint 3.5 Gm OU Q4HR PRN Dry Eye(s) Ondansetron HCl 4 mg 04/20/21 21:31 Ondansetron 4 Mg/2 Ml Inj IV Q8H PRN Nausea And Vomiting Senna/Docusate Sodium 1 tab 04/26/21 22:00 05/02/21 09:30 Sennosides/Docusate Sodium 8.6/50 Mg Tab FEEDTUBE 1 tab BID AZIZA Administration Simple Syrup 15 ml 04/25/21 14:13 Simple Syrup 15 Ml FEEDTUBE PRN PRN Hypoglycemia Simple Syrup 30 ml 04/25/21 14:13 Simple Syrup 15 Ml FEEDTUBE PRN PRN Hypoglycemia Sodium Bicarbonate 325 mg 04/25/21 14:13 04/27/21 13:00 Sodium Bicarbonate 325 Mg Tab FEEDTUBE 325 mg PRN PRN Administration For Clogged Feeding Tube Sodium Bicarbonate 1,300 mg 04/27/21 14:00 05/02/21 09:30 Sodium Bicarbonate 650 Mg Tab PO 1,300 mg TID AZIZA Administration Sodium Chloride 10 ml 04/20/21 22:00 05/02/21 09:30 Sodium Chloride 0.9% 10 Ml Flush Syringe IV 10 ml BID AZIZA Administration Sodium Chloride 10 ml 04/20/21 21:31 Sodium Chloride 0.9% 10 Ml Flush Syringe IV PRN PRN LINE FLUSH
--- NOTE | 2021-05-02 13:21 | Progress Note ---
Assessment and Plan 80 y/o female with altered mental state, severe electrolyte imbalance with presumptive acute renal failure and hypothermia. 05/02/21: MRI today. Repeat cultures. HD per renal. Once MRI results back will discuss with Neurosurgery to see if anything further should be done. Abx per ID. Overall prognosis is very guarded to poor. 04/29/21: Will reach out to neuro after 24-48 hours post spinal tap pending any change in mentation. If improvement, may need to consider shunt placement. If not, not sure that there is anything they can offer. if they still want MRI, then can obtain. Now spiking temps. Blood cultures and UA. Given time frame in Hospital will place on Vanc and Cefepime. Guarded prognosis. HD per renal. Given anasarca, will ask renal about trying to remove volume. 04/28/21: Will discuss with renal about HD again today. MRI vs LP (large amount). Coags are ok. Will attempt to get at least one of these done today. Patient is still on 80% but sat is 100. Will ask MINING MANAGER about placing ART line today. Wean FiO2 as tolerated. Guarded prognosis. 04/27/21: HD today per renal. Vascath placed and awaiting CXR for conformation of good placement (done and good). Vent weaning as tolerated for sats >88%. ABG in the AM. Will check Coags in the am and hopeful these are stable. Platelets need to above 50K. Would like to do large volume spinal tap to see if this helps with mentation. Will also obtain MRI once oxygen requirement improves. 04/26/21: WIll electively intubate and then obtain MRI. Pending MRI results, will likely order large volume spinal tap to assess if NPH is a factor or not. Guarded prognosis. Electrolytes are improving. 04/25/21: Continue to follow renal recs. Will reach out to POA either today or tomorrow for further updates. Follow up renal recs. Monitor electrolytes and renal function. Guarded prognosis. 1. Neuro-reached out to neuro surgery, placed consult in regards to CT findings 2. Renal-appreciate help and recs, will follow IV hydration recommendations 3. Blood cultures. Urine was negative 4. Jorge Qing for temp Guarded prognosis CCT 31 minutes. Subjective Date of service: 05/02/21 Principal diagnosis: Acute respiratory failure Interval history: Remains unresponsive on vent. Large Volume Spinal tap made no change in her mental state. Currently on HD. Objective Vital Signs - 12hr 05/02/21 05/02/21 05/02/21 01:30 01:45 02:00 Temperature Pulse Rate 95 H 92 H 82 Pulse Rate [ From Monitor] Respiratory 22 17 27 H Rate Blood Pressure 118/45 111/46 105/55 O2 Sat by Pulse 99 98 99 Oximetry O2 Sat by Pulse Oximetry [ Anterior Bilateral Throughout] O2 Sat by Pulse Oximetry [ Anterior Right Upper Lobe] 05/02/21 05/02/21 05/02/21 02:15 02:30 02:45 Temperature Pulse Rate 93 H 95 H 113 H Pulse Rate [ From Monitor] Respiratory 19 22 17 Rate Blood Pressure 108/48 118/52 121/45 O2 Sat by Pulse 98 98 99 Oximetry O2 Sat by Pulse Oximetry [ Anterior Bilateral Throughout] O2 Sat by Pulse Oximetry [ Anterior Right Upper Lobe] 05/02/21 05/02/21 05/02/21 03:00 03:15 03:30 Temperature Pulse Rate 95 H 96 H 97 H Pulse Rate [ From Monitor] Respiratory 17 22 26 H Rate Blood Pressure 104/49 116/48 107/50 O2 Sat by Pulse 99 99 98 Oximetry O2 Sat by Pulse Oximetry [ Anterior Bilateral Throughout] O2 Sat by Pulse Oximetry [ Anterior Right Upper Lobe] 05/02/21 05/02/21 05/02/21 03:41 03:45 04:00 Temperature 98.2 F Pulse Rate 95 H 94 H 96 H Pulse Rate [ 95 H From Monitor] Respiratory 17 14 Rate Blood Pressure 103/46 109/50 O2 Sat by Pulse 99 96 Oximetry O2 Sat by Pulse Oximetry [ Anterior Bilateral Throughout] O2 Sat by Pulse Oximetry [ Anterior Right Upper Lobe] 05/02/21 05/02/21 05/02/21 04:15 04:24 04:30 Temperature Pulse Rate 94 H 99 H 92 H Pulse Rate [ From Monitor] Respiratory 19 15 Rate Blood Pressure 117/46 117/46 121/53 O2 Sat by Pulse 99 99 99 Oximetry O2 Sat by Pulse Oximetry [ Anterior Bilateral Throughout] O2 Sat by Pulse Oximetry [ Anterior Right Upper Lobe] 05/02/21 05/02/21 05/02/21 04:45 05:00 05:15 Temperature Pulse Rate 100 H 108 H 106 H Pulse Rate [ From Monitor] Respiratory 20 24 26 H Rate Blood Pressure 91/45 96/43 97/47 O2 Sat by Pulse 98 98 99 Oximetry O2 Sat by Pulse Oximetry [ Anterior Bilateral Throughout] O2 Sat by Pulse Oximetry [ Anterior Right Upper Lobe] 05/02/21 05/02/21 05/02/21 05:30 05:45 06:00 Temperature Pulse Rate 106 H 107 H 100 H Pulse Rate [ From Monitor] Respiratory 15 30 H 19 Rate Blood Pressure 94/43 104/44 103/40 O2 Sat by Pulse 98 99 98 Oximetry O2 Sat by Pulse Oximetry [ Anterior Bilateral Throughout] O2 Sat by Pulse Oximetry [ Anterior Right Upper Lobe] 05/02/21 05/02/21 05/02/21 06:15 06:30 06:45 Temperature Pulse Rate 100 H 99 H 98 H Pulse Rate [ From Monitor] Respiratory 22 16 14 Rate Blood Pressure 97/40 94/37 87/42 O2 Sat by Pulse 98 99 99 Oximetry O2 Sat by Pulse Oximetry [ Anterior Bilateral Throughout] O2 Sat by Pulse Oximetry [ Anterior Right Upper Lobe] 05/02/21 05/02/21 05/02/21 07:00 07:15 07:30 Temperature Pulse Rate 97 H 92 H 89 Pulse Rate [ From Monitor] Respiratory 14 16 17 Rate Blood Pressure 97/39 96/45 94/43 O2 Sat by Pulse 99 99 99 Oximetry O2 Sat by Pulse Oximetry [ Anterior Bilateral Throughout] O2 Sat by Pulse Oximetry [ Anterior Right Upper Lobe] 05/02/21 05/02/21 05/02/21 07:45 08:00 08:15 Temperature 99.1 F Pulse Rate 91 H 92 H 93 H Pulse Rate [ 94 H From Monitor] Respiratory 17 15 17 Rate Blood Pressure 96/41 85/44 95/46 O2 Sat by Pulse 99 99 98 Oximetry O2 Sat by Pulse Oximetry [ Anterior Bilateral Throughout] O2 Sat by Pulse Oximetry [ Anterior Right Upper Lobe] 05/02/21 05/02/21 05/02/21 08:30 08:45 09:00 Temperature Pulse Rate 92 H 90 90 Pulse Rate [ From Monitor] Respiratory 16 16 15 Rate Blood Pressure 92/40 102/48 102/47 O2 Sat by Pulse 99 99 99 Oximetry O2 Sat by Pulse Oximetry [ Anterior Bilateral Throughout] O2 Sat by Pulse Oximetry [ Anterior Right Upper Lobe] 05/02/21 05/02/21 05/02/21 09:15 09:30 09:45 Temperature Pulse Rate 86 98 H 102 H Pulse Rate [ From Monitor] Respiratory 17 18 21 Rate Blood Pressure 101/47 108/56 118/61 O2 Sat by Pulse 99 99 99 Oximetry O2 Sat by Pulse Oximetry [ Anterior Bilateral Throughout] O2 Sat by Pulse Oximetry [ Anterior Right Upper Lobe] 05/02/21 05/02/21 05/02/21 10:00 10:15 10:30 Temperature Pulse Rate 98 H 100 H 97 H Pulse Rate [ From Monitor] Respiratory 15 27 H 15 Rate Blood Pressure 126/52 121/51 105/45 O2 Sat by Pulse 98 98 98 Oximetry O2 Sat by Pulse Oximetry [ Anterior Bilateral Throughout] O2 Sat by Pulse Oximetry [ Anterior Right Upper Lobe] 05/02/21 05/02/21 05/02/21 10:45 11:00 11:15 Temperature Pulse Rate 98 H 93 H 93 H Pulse Rate [ From Monitor] Respiratory 21 16 18 Rate Blood Pressure 109/45 96/45 97/39 O2 Sat by Pulse 98 98 99 Oximetry O2 Sat by Pulse Oximetry [ Anterior Bilateral Throughout] O2 Sat by Pulse Oximetry [ Anterior Right Upper Lobe] 05/02/21 05/02/21 05/02/21 11:30 11:45 12:00 Temperature Pulse Rate 103 H 108 H 100 H Pulse Rate [ 97 H From Monitor] Respiratory 22 22 16 Rate Blood Pressure 106/53 106/51 93/51 O2 Sat by Pulse 98 99 100 Oximetry O2 Sat by Pulse Oximetry [ Anterior Bilateral Throughout] O2 Sat by Pulse Oximetry [ Anterior Right Upper Lobe] 05/02/21 05/02/21 05/02/21 12:15 12:20 12:25 Temperature 98.8 F Pulse Rate 101 H 106 H 105 H Pulse Rate [ From Monitor] Respiratory 20 17 Rate Blood Pressure 113/50 113/20 132/64 O2 Sat by Pulse 99 Oximetry O2 Sat by Pulse 100 Oximetry [ Anterior Bilateral Throughout] O2 Sat by Pulse 99 Oximetry [ Anterior Right Upper Lobe] 05/02/21 05/02/21 05/02/21 12:30 12:45 13:00 Temperature Pulse Rate 108 H 112 H 96 H Pulse Rate [ From Monitor] Respiratory 25 H 20 18 Rate Blood Pressure 106/55 92/62 105/46 O2 Sat by Pulse 100 99 99 Oximetry O2 Sat by Pulse Oximetry [ Anterior Bilateral Throughout] O2 Sat by Pulse Oximetry [ Anterior Right Upper Lobe] Constitutional: other (critically ill, somnolent, on vent) Eyes: non-icteric ENT: oropharynx dry Effort: other (tachypneic but not labored) Ascultation: Bilateral: clear Cardiovascular: regular rate and rhythm Gastrointestinal: normoactive bowel sounds, soft, non-tender, non-distended Integumentary: normal Extremities: no cyanosis, no edema, pink and warm Neurologic: unable to assess Psychiatric: other (unable to assess) CBC and BMP: 05/02/21 04:00 05/02/21 04:00 ABG, PT/INR, D-dimer: ABG ABG pH 7.487 (7.320-7.450) H 05/02/21 04:34 POC ABG pCO2 35.3 mmHg (32.0-48.0) 05/02/21 04:34 ABG pCO2 31.6 mm Hg 04/21/21 15:47 POC ABG pO2 78.6 mmHg (83-108) L 05/02/21 04:34 ABG pO2 168.1 mm Hg (80.0-90.0) H 04/21/21 15:47 POC ABG HCO3 26.1 05/02/21 04:34 ABG O2 Saturation 96.0 (0-100) 05/02/21 04:34 PT/INR, D-dimer PT 15.3 Sec. (12.2-14.9) H 04/28/21 05:00 INR 1.09 (0.87-1.13) 04/28/21 05:00 Abnormal lab findings: Abnormal Labs 04/20/21 04/20/21 04/20/21 17:10 17:10 17:10 WBC 17.4 H RBC 5.19 H Hgb Hct 46.8 H MCH 27 L RDW 17.2 H Plt Count Seg Neuts % (Manual) 98.0 H Lymphocytes % (Manual) 2.0 L Nucleated RBC % 1.0 H Seg Neutrophils # Man 17.1 H Lymphocytes # (Manual) 0.3 L PT ABG pH POC ABG pCO2 POC ABG pO2 ABG pO2 ABG O2 Saturation ABG Base Excess ABG Hemoglobin ABG Oxyhemoglobin ABG Potassium ABG Chloride ABG Glucose Oxyhemoglobin Carboxyhemoglobin Sodium 173 H* Potassium Chloride 132.9 H Carbon Dioxide 17 L BUN 120 H Creatinine 4.2 H Glucose 762 H* POC Glucose Hemoglobin A1c Lactic Acid Calcium Phosphorus Magnesium 3.80 H Transferrin AST 72 H ALT 63 H Alkaline Phosphatase 148 H Total Creatine Kinase 3697 H CK-MB (CK-2) 36.0 H Serum Total Protein Total Protein Albumin 2.2 L Bmzie-2-Ifhfsyszx Cnxzo-0-Hkystxiff Gamma Globulins PEP Interpretation TSH Arterial Blood Glucose Arterial Blood Ionized Calcium Urine WBC (Auto) Urine Creatinine Urine Total Protein Crossmatch 04/20/21 04/20/21 04/20/21 17:10 17:10 18:55 WBC RBC Hgb Hct MCH RDW Plt Count Seg Neuts % (Manual) Lymphocytes % (Manual) Nucleated RBC % Seg Neutrophils # Man Lymphocytes # (Manual) PT ABG pH POC ABG pCO2 POC ABG pO2 ABG pO2 ABG O2 Saturation ABG Base Excess ABG Hemoglobin ABG Oxyhemoglobin ABG Potassium ABG Chloride ABG Glucose Oxyhemoglobin Carboxyhemoglobin Sodium Potassium Chloride Carbon Dioxide BUN Creatinine Glucose POC Glucose 574 H Hemoglobin A1c Lactic Acid 2.60 H* Calcium Phosphorus Magnesium Transferrin AST ALT Alkaline Phosphatase Total Creatine Kinase CK-MB (CK-2) Serum Total Protein Total Protein Albumin Hyyuz-9-Etzboqyjm Qpgdc-7-Xvowufqla Gamma Globulins PEP Interpretation TSH 6.040 H Arterial Blood Glucose Arterial Blood Ionized Calcium Urine WBC (Auto) Urine Creatinine Urine Total Protein Crossmatch 04/20/21 04/20/21 04/21/21 22:58 22:58 00:14 WBC RBC Hgb Hct MCH RDW Plt Count Seg Neuts % (Manual) Lymphocytes % (Manual) Nucleated RBC % Seg Neutrophils # Man Lymphocytes # (Manual) PT ABG pH POC ABG pCO2 POC ABG pO2 ABG pO2 ABG O2 Saturation ABG Base Excess ABG Hemoglobin ABG Oxyhemoglobin ABG Potassium ABG Chloride ABG Glucose Oxyhemoglobin Carboxyhemoglobin Sodium 172 H* Potassium 3.2 L Chloride 134.2 H Carbon Dioxide 17 L BUN 112 H Creatinine 3.8 H Glucose 803 H* POC Glucose > 600 H Hemoglobin A1c Lactic Acid Calcium 8.3 L Phosphorus Magnesium 3.50 H Transferrin AST ALT Alkaline Phosphatase Total Creatine Kinase CK-MB (CK-2) Serum Total Protein Total Protein Albumin Ujpji-6-Pzohfcmtm Iqoos-5-Epkdguahs Gamma Globulins PEP Interpretation TSH Arterial Blood Glucose Arterial Blood Ionized Calcium Urine WBC (Auto) Urine Creatinine Urine Total Protein Crossmatch 04/21/21 04/21/21 04/21/21 00:22 02:01 03:11 WBC RBC Hgb Hct MCH RDW Plt Count Seg Neuts % (Manual) Lymphocytes % (Manual) Nucleated RBC % Seg Neutrophils # Man Lymphocytes # (Manual) PT ABG pH POC ABG pCO2 POC ABG pO2 ABG pO2 ABG O2 Saturation ABG Base Excess ABG Hemoglobin ABG Oxyhemoglobin ABG Potassium ABG Chloride ABG Glucose Oxyhemoglobin Carboxyhemoglobin Sodium 176 H* 175 H* Potassium 2.9 L* 3.0 L Chloride 139.9 H 136.2 H Carbon Dioxide 17 L 19 L BUN 113 H 112 H Creatinine 3.9 H 3.6 H Glucose 729 H* 582 H* POC Glucose 404 H Hemoglobin A1c Lactic Acid Calcium Phosphorus Magnesium Transferrin AST ALT Alkaline Phosphatase Total Creatine Kinase CK-MB (CK-2) Serum Total Protein Total Protein Albumin Kkfvb-9-Fymidsbse Rukyw-3-Gujtalwod Gamma Globulins PEP Interpretation TSH Arterial Blood Glucose Arterial Blood Ionized Calcium Urine WBC (Auto) Urine Creatinine Urine Total Protein Crossmatch 04/21/21 04/21/21 04/21/21 03:20 03:41 03:41 WBC 14.1 H RBC Hgb Hct MCH 27 L RDW 16.8 H Plt Count 114 L Seg Neuts % (Manual) 97.0 H Lymphocytes % (Manual) 3.0 L Nucleated RBC % 1.0 H Seg Neutrophils # Man 13.7 H Lymphocytes # (Manual) 0.4 L PT ABG pH POC ABG pCO2 POC ABG pO2 ABG pO2 52.3 L ABG O2 Saturation 84.5 L ABG Base Excess -2.9 L ABG Hemoglobin ABG Oxyhemoglobin ABG Potassium ABG Chloride ABG Glucose Oxyhemoglobin 82.9 L Carboxyhemoglobin Sodium 179 H* Potassium 2.9 L* Chloride 138.2 H Carbon Dioxide 20 L BUN 111 H Creatinine 3.7 H Glucose 465 H POC Glucose Hemoglobin A1c Lactic Acid Calcium Phosphorus Magnesium Transferrin AST 73 H ALT 61 H Alkaline Phosphatase 144 H Total Creatine Kinase CK-MB (CK-2) Serum Total Protein Total Protein Albumin 2.5 L Nbdub-1-Yfuxkzzvd Hbpeh-5-Ovwznnvxn Gamma Globulins PEP Interpretation TSH Arterial Blood Glucose Arterial Blood Ionized Calcium Urine WBC (Auto) Urine Creatinine Urine Total Protein Crossmatch 04/21/21 04/21/21 04/21/21 04:24 05:45 06:47 WBC RBC Hgb Hct MCH RDW Plt Count Seg Neuts % (Manual) Lymphocytes % (Manual) Nucleated RBC % Seg Neutrophils # Man Lymphocytes # (Manual) PT ABG pH POC ABG pCO2 POC ABG pO2 ABG pO2 ABG O2 Saturation ABG Base Excess ABG Hemoglobin ABG Oxyhemoglobin ABG Potassium ABG Chloride ABG Glucose Oxyhemoglobin Carboxyhemoglobin Sodium Potassium Chloride Carbon Dioxide BUN Creatinine Glucose POC Glucose 353 H 280 H 260 H Hemoglobin A1c Lactic Acid Calcium Phosphorus Magnesium Transferrin AST ALT Alkaline Phosphatase Total Creatine Kinase CK-MB (CK-2) Serum Total Protein Total Protein Albumin Selgi-3-Mlfrazpmq Icdlg-8-Ivuarnxbg Gamma Globulins PEP Interpretation TSH Arterial Blood Glucose Arterial Blood Ionized Calcium Urine WBC (Auto) Urine Creatinine Urine Total Protein Crossmatch 04/21/21 04/21/21 04/21/21 08:01 11:11 12:51 WBC RBC Hgb Hct MCH RDW Plt Count Seg Neuts % (Manual) Lymphocytes % (Manual) Nucleated RBC % Seg Neutrophils # Man Lymphocytes # (Manual) PT ABG pH POC ABG pCO2 POC ABG pO2 ABG pO2 ABG O2 Saturation ABG Base Excess ABG Hemoglobin ABG Oxyhemoglobin ABG Potassium ABG Chloride ABG Glucose Oxyhemoglobin Carboxyhemoglobin Sodium Potassium Chloride Carbon Dioxide BUN Creatinine Glucose POC Glucose 68 L 146 H Hemoglobin A1c Lactic Acid Calcium Phosphorus Magnesium Transferrin AST ALT Alkaline Phosphatase Total Creatine Kinase CK-MB (CK-2) Serum Total Protein Total Protein Albumin Shutr-3-Gavzxgwpf Avuqg-8-Pzfnkadlj Gamma Globulins PEP Interpretation TSH Arterial Blood Glucose Arterial Blood Ionized Calcium Urine WBC (Auto) Urine Creatinine 44.3 H Urine Total Protein 12 H Crossmatch 04/21/21 04/21/21 04/21/21 13:41 14:40 15:47 WBC RBC Hgb Hct MCH RDW Plt Count Seg Neuts % (Manual) Lymphocytes % (Manual) Nucleated RBC % Seg Neutrophils # Man Lymphocytes # (Manual) PT ABG pH 7.275 L 7.486 H POC ABG pCO2 POC ABG pO2 63.4 L ABG pO2 168.1 H ABG O2 Saturation 99.1 H ABG Base Excess ABG Hemoglobin 8.4 L 8.9 L ABG Oxyhemoglobin 89.5 L ABG Potassium ABG Chloride 108.0 H ABG Glucose 404 H Oxyhemoglobin Carboxyhemoglobin Sodium Potassium Chloride Carbon Dioxide BUN Creatinine Glucose POC Glucose 186 H Hemoglobin A1c Lactic Acid Calcium Phosphorus Magnesium Transferrin AST ALT Alkaline Phosphatase Total Creatine Kinase CK-MB (CK-2) Serum Total Protein Total Protein Albumin Mxmxe-3-Jykukjtha Uosvo-6-Eewfqqhpg Gamma Globulins PEP Interpretation TSH Arterial Blood Glucose 404 H Arterial Blood Ionized Calcium Urine WBC (Auto) Urine Creatinine Urine Total Protein Crossmatch 04/21/21 04/21/21 04/21/21 16:25 17:57 18:49 WBC RBC Hgb Hct MCH RDW Plt Count Seg Neuts % (Manual) Lymphocytes % (Manual) Nucleated RBC % Seg Neutrophils # Man Lymphocytes # (Manual) PT ABG pH POC ABG pCO2 POC ABG pO2 ABG pO2 ABG O2 Saturation ABG Base Excess ABG Hemoglobin ABG Oxyhemoglobin ABG Potassium ABG Chloride ABG Glucose Oxyhemoglobin Carboxyhemoglobin Sodium 174 H* Potassium 7.2 H* D Chloride 138.2 H Carbon Dioxide 21 L BUN 99 H Creatinine 4.0 H Glucose 157 H POC Glucose 172 H 143 H Hemoglobin A1c Lactic Acid Calcium Phosphorus Magnesium Transferrin AST 134 H ALT 71 H Alkaline Phosphatase 135 H Total Creatine Kinase 3504 H CK-MB (CK-2) Serum Total Protein Total Protein Albumin 2.2 L Degpg-4-Ezxzjbavl Nfgyz-6-Shlqxlhox Gamma Globulins PEP Interpretation TSH Arterial Blood Glucose Arterial Blood Ionized Calcium Urine WBC (Auto) Urine Creatinine Urine Total Protein Crossmatch 04/21/21 04/21/21 04/21/21 19:10 20:26 20:53 WBC RBC Hgb Hct MCH RDW Plt Count Seg Neuts % (Manual) Lymphocytes % (Manual) Nucleated RBC % Seg Neutrophils # Man Lymphocytes # (Manual) PT ABG pH POC ABG pCO2 POC ABG pO2 ABG pO2 ABG O2 Saturation ABG Base Excess ABG Hemoglobin ABG Oxyhemoglobin ABG Potassium ABG Chloride ABG Glucose Oxyhemoglobin Carboxyhemoglobin Sodium Potassium Chloride Carbon Dioxide BUN Creatinine Glucose POC Glucose 126 H 190 H 116 H Hemoglobin A1c Lactic Acid Calcium Phosphorus Magnesium Transferrin AST ALT Alkaline Phosphatase Total Creatine Kinase CK-MB (CK-2) Serum Total Protein Total Protein Albumin Fkkcy-6-Rhdfkmhai Jxuiz-1-Fqesdttrp Gamma Globulins PEP Interpretation TSH Arterial Blood Glucose Arterial Blood Ionized Calcium Urine WBC (Auto) Urine Creatinine Urine Total Protein Crossmatch 04/21/21 04/21/21 04/21/21 21:52 22:55 23:00 WBC RBC Hgb Hct MCH RDW Plt Count Seg Neuts % (Manual) Lymphocytes % (Manual) Nucleated RBC % Seg Neutrophils # Man Lymphocytes # (Manual) PT ABG pH POC ABG pCO2 POC ABG pO2 ABG pO2 ABG O2 Saturation ABG Base Excess ABG Hemoglobin ABG Oxyhemoglobin ABG Potassium ABG Chloride ABG Glucose Oxyhemoglobin Carboxyhemoglobin Sodium 176 H* Potassium Chloride 140.0 H Carbon Dioxide 20 L BUN 98 H Creatinine 3.9 H Glucose 206 H POC Glucose 135 H 158 H Hemoglobin A1c Lactic Acid Calcium Phosphorus Magnesium Transferrin AST ALT Alkaline Phosphatase Total Creatine Kinase 3240 H CK-MB (CK-2) Serum Total Protein Total Protein Albumin Niknf-0-Cvhsibpqj Jhbmo-5-Jnxcjpysf Gamma Globulins PEP Interpretation TSH Arterial Blood Glucose Arterial Blood Ionized Calcium Urine WBC (Auto) Urine Creatinine Urine Total Protein Crossmatch 04/22/21 04/22/21 04/22/21 00:01 00:39 00:58 WBC RBC Hgb Hct MCH RDW Plt Count Seg Neuts % (Manual) Lymphocytes % (Manual) Nucleated RBC % Seg Neutrophils # Man Lymphocytes # (Manual) PT ABG pH POC ABG pCO2 POC ABG pO2 ABG pO2 ABG O2 Saturation ABG Base Excess ABG Hemoglobin ABG Oxyhemoglobin ABG Potassium ABG Chloride ABG Glucose Oxyhemoglobin Carboxyhemoglobin Sodium 171 H* Potassium Chloride Carbon Dioxide BUN Creatinine Glucose POC Glucose 182 H 176 H Hemoglobin A1c Lactic Acid Calcium Phosphorus Magnesium Transferrin AST ALT Alkaline Phosphatase Total Creatine Kinase CK-MB (CK-2) Serum Total Protein Total Protein Albumin Dxzfa-9-Jdbobqtsw Cwkdr-3-Aerefbxwy Gamma Globulins PEP Interpretation TSH Arterial Blood Glucose Arterial Blood Ionized Calcium Urine WBC (Auto) Urine Creatinine Urine Total Protein Crossmatch 04/22/21 04/22/21 04/22/21 01:04 04:52 06:07 WBC 11.2 H RBC Hgb Hct 44.3 H MCH 27 L RDW 17.1 H Plt Count 86 L Seg Neuts % (Manual) 86.0 H Lymphocytes % (Manual) 13.0 L Nucleated RBC % Seg Neutrophils # Man 9.6 H Lymphocytes # (Manual) PT ABG pH POC ABG pCO2 POC ABG pO2 ABG pO2 ABG O2 Saturation ABG Base Excess ABG Hemoglobin ABG Oxyhemoglobin ABG Potassium ABG Chloride ABG Glucose Oxyhemoglobin Carboxyhemoglobin Sodium Potassium Chloride Carbon Dioxide BUN Creatinine Glucose POC Glucose 143 H 206 H Hemoglobin A1c Lactic Acid Calcium Phosphorus Magnesium Transferrin AST ALT Alkaline Phosphatase Total Creatine Kinase CK-MB (CK-2) Serum Total Protein Total Protein Albumin Pmkzq-9-Cgneybkkg Lkamn-8-Jgofgxppq Gamma Globulins PEP Interpretation TSH Arterial Blood Glucose Arterial Blood Ionized Calcium Urine WBC (Auto) Urine Creatinine Urine Total Protein Crossmatch 04/22/21 04/22/21 04/22/21 06:09 07:18 08:59 WBC RBC Hgb Hct MCH RDW Plt Count Seg Neuts % (Manual) Lymphocytes % (Manual) Nucleated RBC % Seg Neutrophils # Man Lymphocytes # (Manual) PT ABG pH POC ABG pCO2 POC ABG pO2 ABG pO2 ABG O2 Saturation ABG Base Excess ABG Hemoglobin ABG Oxyhemoglobin ABG Potassium ABG Chloride ABG Glucose Oxyhemoglobin Carboxyhemoglobin Sodium Potassium Chloride Carbon Dioxide BUN Creatinine Glucose POC Glucose 163 H 158 H Hemoglobin A1c Lactic Acid Calcium Phosphorus Magnesium Transferrin AST ALT Alkaline Phosphatase Total Creatine Kinase 3105 H CK-MB (CK-2) Serum Total Protein Total Protein Albumin Rqmeq-3-Yrjpwarpi Waglg-9-Xcrfrrkfd Gamma Globulins PEP Interpretation TSH Arterial Blood Glucose Arterial Blood Ionized Calcium Urine WBC (Auto) Urine Creatinine Urine Total Protein Crossmatch 04/22/21 04/22/21 04/22/21 08:59 08:59 09:44 WBC RBC Hgb Hct MCH RDW Plt Count Seg Neuts % (Manual) Lymphocytes % (Manual) Nucleated RBC % Seg Neutrophils # Man Lymphocytes # (Manual) PT ABG pH POC ABG pCO2 POC ABG pO2 ABG pO2 ABG O2 Saturation ABG Base Excess ABG Hemoglobin ABG Oxyhemoglobin ABG Potassium ABG Chloride ABG Glucose Oxyhemoglobin Carboxyhemoglobin Sodium 169 H* Potassium 3.5 L Chloride 134.5 H Carbon Dioxide 20 L BUN 95 H Creatinine 3.6 H Glucose 151 H POC Glucose Hemoglobin A1c Lactic Acid Calcium Phosphorus Magnesium 2.80 H Transferrin AST 121 H ALT 75 H Alkaline Phosphatase 137 H Total Creatine Kinase CK-MB (CK-2) Serum Total Protein 5.5 L Total Protein 6.0 L Albumin 2.8 L 2.1 L Tfmhj-7-Ioxuivyzy 0.6 H Iewbc-5-Xjdsetvfq 1.0 H Gamma Globulins 0.6 L PEP Interpretation see below H TSH Arterial Blood Glucose Arterial Blood Ionized Calcium Urine WBC (Auto) Urine Creatinine Urine Total Protein Crossmatch 04/22/21 04/22/21 04/22/21 10:24 12:20 13:19 WBC RBC Hgb Hct MCH RDW Plt Count Seg Neuts % (Manual) Lymphocytes % (Manual) Nucleated RBC % Seg Neutrophils # Man Lymphocytes # (Manual) PT ABG pH POC ABG pCO2 POC ABG pO2 ABG pO2 ABG O2 Saturation ABG Base Excess ABG Hemoglobin ABG Oxyhemoglobin ABG Potassium ABG Chloride ABG Glucose Oxyhemoglobin Carboxyhemoglobin Sodium Potassium Chloride Carbon Dioxide BUN Creatinine Glucose POC Glucose 107 H 131 H 147 H Hemoglobin A1c Lactic Acid Calcium Phosphorus Magnesium Transferrin AST ALT Alkaline Phosphatase Total Creatine Kinase CK-MB (CK-2) Serum Total Protein Total Protein Albumin Blaas-2-Omqgsksmn Umrby-8-Lwxizndfm Gamma Globulins PEP Interpretation TSH Arterial Blood Glucose Arterial Blood Ionized Calcium Urine WBC (Auto) Urine Creatinine Urine Total Protein Crossmatch 04/22/21 04/22/21 04/22/21 14:16 15:22 15:55 WBC RBC Hgb Hct MCH RDW Plt Count Seg Neuts % (Manual) Lymphocytes % (Manual) Nucleated RBC % Seg Neutrophils # Man Lymphocytes # (Manual) PT ABG pH POC ABG pCO2 POC ABG pO2 ABG pO2 ABG O2 Saturation ABG Base Excess ABG Hemoglobin ABG Oxyhemoglobin ABG Potassium ABG Chloride ABG Glucose Oxyhemoglobin Carboxyhemoglobin Sodium 169 H* Potassium Chloride 133.5 H Carbon Dioxide 19 L BUN 94 H Creatinine 3.8 H Glucose 150 H POC Glucose 154 H 136 H Hemoglobin A1c Lactic Acid Calcium Phosphorus Magnesium Transferrin AST ALT Alkaline Phosphatase Total Creatine Kinase CK-MB (CK-2) Serum Total Protein Total Protein Albumin Rbcev-3-Dnopzvuuu Ndtcq-5-Cpgqymwfz Gamma Globulins PEP Interpretation TSH Arterial Blood Glucose Arterial Blood Ionized Calcium Urine WBC (Auto) Urine Creatinine Urine Total Protein Crossmatch 04/22/21 04/22/21 04/22/21 15:55 16:22 18:11 WBC RBC Hgb Hct MCH RDW Plt Count Seg Neuts % (Manual) Lymphocytes % (Manual) Nucleated RBC % Seg Neutrophils # Man Lymphocytes # (Manual) PT ABG pH POC ABG pCO2 POC ABG pO2 ABG pO2 ABG O2 Saturation ABG Base Excess ABG Hemoglobin ABG Oxyhemoglobin ABG Potassium ABG Chloride ABG Glucose Oxyhemoglobin Carboxyhemoglobin Sodium Potassium Chloride Carbon Dioxide BUN Creatinine Glucose POC Glucose 140 H Hemoglobin A1c 17.1 H Lactic Acid Calcium Phosphorus Magnesium Transferrin AST ALT Alkaline Phosphatase Total Creatine Kinase 2497 H CK-MB (CK-2) Serum Total Protein Total Protein Albumin Qnjqc-2-Nobcnajbn Drzbb-7-Rgvsxiclz Gamma Globulins PEP Interpretation TSH Arterial Blood Glucose Arterial Blood Ionized Calcium Urine WBC (Auto) Urine Creatinine Urine Total Protein Crossmatch 04/22/21 04/22/21 04/23/21 18:26 23:19 00:27 WBC RBC Hgb Hct MCH RDW Plt Count Seg Neuts % (Manual) Lymphocytes % (Manual) Nucleated RBC % Seg Neutrophils # Man Lymphocytes # (Manual) PT ABG pH POC ABG pCO2 POC ABG pO2 ABG pO2 ABG O2 Saturation ABG Base Excess ABG Hemoglobin ABG Oxyhemoglobin ABG Potassium ABG Chloride ABG Glucose Oxyhemoglobin Carboxyhemoglobin Sodium 162 H* Potassium Chloride Carbon Dioxide BUN Creatinine Glucose POC Glucose 146 H 188 H Hemoglobin A1c Lactic Acid Calcium Phosphorus Magnesium Transferrin AST ALT Alkaline Phosphatase Total Creatine Kinase CK-MB (CK-2) Serum Total Protein Total Protein Albumin Tjhru-2-Bcypszyyh Azupm-8-Fovjwqeso Gamma Globulins PEP Interpretation TSH Arterial Blood Glucose Arterial Blood Ionized Calcium Urine WBC (Auto) Urine Creatinine Urine Total Protein Crossmatch 04/23/21 04/23/21 04/23/21 05:23 07:50 08:13 WBC RBC Hgb Hct MCH RDW Plt Count Seg Neuts % (Manual) Lymphocytes % (Manual) Nucleated RBC % Seg Neutrophils # Man Lymphocytes # (Manual) PT ABG pH POC ABG pCO2 POC ABG pO2 ABG pO2 ABG O2 Saturation ABG Base Excess ABG Hemoglobin ABG Oxyhemoglobin ABG Potassium ABG Chloride ABG Glucose Oxyhemoglobin Carboxyhemoglobin Sodium Potassium Chloride Carbon Dioxide BUN Creatinine Glucose POC Glucose 212 H 239 H Hemoglobin A1c Lactic Acid Calcium Phosphorus Magnesium Transferrin AST ALT Alkaline Phosphatase Total Creatine Kinase 1803 H CK-MB (CK-2) Serum Total Protein Total Protein Albumin Ztgak-1-Tdbjxjonp Mbuua-2-Schdcefrs Gamma Globulins PEP Interpretation TSH Arterial Blood Glucose Arterial Blood Ionized Calcium Urine WBC (Auto) Urine Creatinine Urine Total Protein Crossmatch 04/23/21 04/23/21 04/23/21 08:13 08:13 12:06 WBC 11.9 H RBC Hgb Hct MCH 26 L RDW 16.5 H Plt Count 72 L Seg Neuts % (Manual) 80.0 H Lymphocytes % (Manual) 5.0 L Nucleated RBC % Seg Neutrophils # Man 9.5 H Lymphocytes # (Manual) 0.6 L PT ABG pH POC ABG pCO2 POC ABG pO2 ABG pO2 ABG O2 Saturation ABG Base Excess ABG Hemoglobin ABG Oxyhemoglobin ABG Potassium ABG Chloride ABG Glucose Oxyhemoglobin Carboxyhemoglobin Sodium 164 H* Potassium Chloride 128.0 H Carbon Dioxide 21 L BUN 93 H Creatinine 3.8 H Glucose 293 H POC Glucose 311 H Hemoglobin A1c Lactic Acid Calcium Phosphorus Magnesium Transferrin AST 99 H ALT 70 H Alkaline Phosphatase 147 H Total Creatine Kinase CK-MB (CK-2) Serum Total Protein Total Protein 6.1 L Albumin 2.0 L Ttdyc-5-Vyeqvzzdd Uwwxe-9-Yfymddjkl Gamma Globulins PEP Interpretation TSH Arterial Blood Glucose Arterial Blood Ionized Calcium Urine WBC (Auto) Urine Creatinine Urine Total Protein Crossmatch 04/23/21 04/23/21 04/24/21 17:35 18:17 02:13 WBC RBC Hgb Hct MCH RDW Plt Count Seg Neuts % (Manual) Lymphocytes % (Manual) Nucleated RBC % Seg Neutrophils # Man Lymphocytes # (Manual) PT ABG pH POC ABG pCO2 POC ABG pO2 ABG pO2 ABG O2 Saturation ABG Base Excess ABG Hemoglobin ABG Oxyhemoglobin ABG Potassium ABG Chloride ABG Glucose Oxyhemoglobin Carboxyhemoglobin Sodium 160 H 160 H Potassium Chloride Carbon Dioxide BUN Creatinine Glucose POC Glucose 370 H Hemoglobin A1c Lactic Acid Calcium Phosphorus Magnesium Transferrin AST ALT Alkaline Phosphatase Total Creatine Kinase CK-MB (CK-2) Serum Total Protein Total Protein Albumin Lphtf-3-Vldgcdyfn Pzryg-1-Keoecdhnw Gamma Globulins PEP Interpretation TSH Arterial Blood Glucose Arterial Blood Ionized Calcium Urine WBC (Auto) Urine Creatinine Urine Total Protein Crossmatch 04/24/21 04/24/21 04/24/21 06:00 06:00 07:46 WBC RBC Hgb Hct MCH 27 L RDW 17.0 H Plt Count 58 L Seg Neuts % (Manual) Lymphocytes % (Manual) 2.0 L Nucleated RBC % Seg Neutrophils # Man 8.9 H Lymphocytes # (Manual) 0.2 L PT ABG pH POC ABG pCO2 POC ABG pO2 ABG pO2 ABG O2 Saturation ABG Base Excess ABG Hemoglobin ABG Oxyhemoglobin ABG Potassium ABG Chloride ABG Glucose Oxyhemoglobin Carboxyhemoglobin Sodium Potassium Chloride Carbon Dioxide BUN Creatinine Glucose POC Glucose 395 H Hemoglobin A1c Lactic Acid Calcium Phosphorus Magnesium 2.90 H Transferrin AST ALT Alkaline Phosphatase Total Creatine Kinase CK-MB (CK-2) Serum Total Protein Total Protein Albumin Fksnp-9-Lxtbazupq Qbtcb-2-Mvyojdwid Gamma Globulins PEP Interpretation TSH Arterial Blood Glucose Arterial Blood Ionized Calcium Urine WBC (Auto) Urine Creatinine Urine Total Protein Crossmatch 04/24/21 04/24/21 04/24/21 08:15 11:34 13:11 WBC RBC Hgb Hct MCH RDW Plt Count Seg Neuts % (Manual) Lymphocytes % (Manual) Nucleated RBC % Seg Neutrophils # Man Lymphocytes # (Manual) PT ABG pH POC ABG pCO2 POC ABG pO2 ABG pO2 ABG O2 Saturation ABG Base Excess ABG Hemoglobin ABG Oxyhemoglobin ABG Potassium ABG Chloride ABG Glucose Oxyhemoglobin Carboxyhemoglobin Sodium 159 H Potassium Chloride 125.6 H Carbon Dioxide 19 L BUN 94 H Creatinine 3.7 H Glucose 514 H* POC Glucose 422 H 384 H Hemoglobin A1c Lactic Acid Calcium Phosphorus Magnesium Transferrin AST ALT 61 H Alkaline Phosphatase 155 H Total Creatine Kinase CK-MB (CK-2) Serum Total Protein Total Protein 6.1 L Albumin 1.5 L Ttgsg-8-Zavirsvrx Kpaqc-5-Sntzywlkj Gamma Globulins PEP Interpretation TSH Arterial Blood Glucose Arterial Blood Ionized Calcium Urine WBC (Auto) Urine Creatinine Urine Total Protein Crossmatch 04/24/21 04/24/21 04/24/21 14:01 15:03 17:29 WBC RBC Hgb Hct MCH RDW Plt Count Seg Neuts % (Manual) Lymphocytes % (Manual) Nucleated RBC % Seg Neutrophils # Man Lymphocytes # (Manual) PT ABG pH POC ABG pCO2 POC ABG pO2 ABG pO2 ABG O2 Saturation ABG Base Excess ABG Hemoglobin ABG Oxyhemoglobin ABG Potassium ABG Chloride ABG Glucose Oxyhemoglobin Carboxyhemoglobin Sodium Potassium Chloride Carbon Dioxide BUN Creatinine Glucose POC Glucose 423 H 418 H Hemoglobin A1c Lactic Acid Calcium Phosphorus Magnesium Transferrin 112 L AST ALT Alkaline Phosphatase Total Creatine Kinase CK-MB (CK-2) Serum Total Protein Total Protein Albumin Zssfm-2-Ycxlbwfjs Nfovn-6-Suvoowcym Gamma Globulins PEP Interpretation TSH Arterial Blood Glucose Arterial Blood Ionized Calcium Urine WBC (Auto) Urine Creatinine Urine Total Protein Crossmatch 04/24/21 04/24/21 04/24/21 18:28 19:41 22:33 WBC RBC Hgb Hct MCH RDW Plt Count Seg Neuts % (Manual) Lymphocytes % (Manual) Nucleated RBC % Seg Neutrophils # Man Lymphocytes # (Manual) PT ABG pH POC ABG pCO2 POC ABG pO2 ABG pO2 ABG O2 Saturation ABG Base Excess ABG Hemoglobin ABG Oxyhemoglobin ABG Potassium ABG Chloride ABG Glucose Oxyhemoglobin Carboxyhemoglobin Sodium Potassium Chloride Carbon Dioxide BUN Creatinine Glucose POC Glucose 335 H 321 H 349 H Hemoglobin A1c Lactic Acid Calcium Phosphorus Magnesium Transferrin AST ALT Alkaline Phosphatase Total Creatine Kinase CK-MB (CK-2) Serum Total Protein Total Protein Albumin Ivmma-7-Ocuffrmgn Wqenw-2-Dtnidyhex Gamma Globulins PEP Interpretation TSH Arterial Blood Glucose Arterial Blood Ionized Calcium Urine WBC (Auto) Urine Creatinine Urine Total Protein Crossmatch 04/25/21 04/25/21 04/25/21 01:28 02:28 03:25 WBC RBC Hgb Hct MCH RDW Plt Count Seg Neuts % (Manual) Lymphocytes % (Manual) Nucleated RBC % Seg Neutrophils # Man Lymphocytes # (Manual) PT ABG pH POC ABG pCO2 POC ABG pO2 ABG pO2 ABG O2 Saturation ABG Base Excess ABG Hemoglobin ABG Oxyhemoglobin ABG Potassium ABG Chloride ABG Glucose Oxyhemoglobin Carboxyhemoglobin Sodium Potassium Chloride Carbon Dioxide BUN Creatinine Glucose POC Glucose 283 H 247 H 196 H Hemoglobin A1c Lactic Acid Calcium Phosphorus Magnesium Transferrin AST ALT Alkaline Phosphatase Total Creatine Kinase CK-MB (CK-2) Serum Total Protein Total Protein Albumin Pkajr-2-Qykqebtmn Uoptc-5-Hgwiunogm Gamma Globulins PEP Interpretation TSH Arterial Blood Glucose Arterial Blood Ionized Calcium Urine WBC (Auto) Urine Creatinine Urine Total Protein Crossmatch 04/25/21 04/25/21 04/25/21 04:22 05:40 05:45 WBC RBC Hgb Hct MCH 27 L RDW 17.0 H Plt Count 64 L Seg Neuts % (Manual) 84.0 H Lymphocytes % (Manual) 6.0 L Nucleated RBC % 1.0 H Seg Neutrophils # Man Lymphocytes # (Manual) 0.4 L PT ABG pH POC ABG pCO2 POC ABG pO2 ABG pO2 ABG O2 Saturation ABG Base Excess ABG Hemoglobin ABG Oxyhemoglobin ABG Potassium ABG Chloride ABG Glucose Oxyhemoglobin Carboxyhemoglobin Sodium Potassium Chloride Carbon Dioxide BUN Creatinine Glucose POC Glucose 207 H 204 H Hemoglobin A1c Lactic Acid Calcium Phosphorus Magnesium Transferrin AST ALT Alkaline Phosphatase Total Creatine Kinase CK-MB (CK-2) Serum Total Protein Total Protein Albumin Ooeum-0-Rfkfjfrwo Abeac-2-Oyywddnqn Gamma Globulins PEP Interpretation TSH Arterial Blood Glucose Arterial Blood Ionized Calcium Urine WBC (Auto) Urine Creatinine Urine Total Protein Crossmatch 04/25/21 04/25/21 04/25/21 06:43 07:37 08:11 WBC RBC Hgb Hct MCH RDW Plt Count Seg Neuts % (Manual) Lymphocytes % (Manual) Nucleated RBC % Seg Neutrophils # Man Lymphocytes # (Manual) PT ABG pH POC ABG pCO2 POC ABG pO2 ABG pO2 ABG O2 Saturation ABG Base Excess ABG Hemoglobin ABG Oxyhemoglobin ABG Potassium ABG Chloride ABG Glucose Oxyhemoglobin Carboxyhemoglobin Sodium 148 H D Potassium Chloride 115.7 H Carbon Dioxide 21 L BUN 83 H Creatinine 3.6 H Glucose 247 H POC Glucose 238 H 201 H Hemoglobin A1c Lactic Acid Calcium Phosphorus Magnesium Transferrin AST 63 H ALT 62 H Alkaline Phosphatase 143 H Total Creatine Kinase CK-MB (CK-2) Serum Total Protein Total Protein 5.4 L Albumin 1.4 L Ybqvi-2-Nkqfyxzzp Kwyby-3-Szbwrhwqo Gamma Globulins PEP Interpretation TSH Arterial Blood Glucose Arterial Blood Ionized Calcium Urine WBC (Auto) Urine Creatinine Urine Total Protein Crossmatch 04/25/21 04/25/21 04/25/21 08:11 08:41 09:22 WBC RBC Hgb Hct MCH RDW Plt Count Seg Neuts % (Manual) Lymphocytes % (Manual) Nucleated RBC % Seg Neutrophils # Man Lymphocytes # (Manual) PT ABG pH POC ABG pCO2 POC ABG pO2 ABG pO2 ABG O2 Saturation ABG Base Excess ABG Hemoglobin ABG Oxyhemoglobin ABG Potassium ABG Chloride ABG Glucose Oxyhemoglobin Carboxyhemoglobin Sodium Potassium Chloride Carbon Dioxide BUN Creatinine Glucose POC Glucose 220 H 228 H Hemoglobin A1c Lactic Acid Calcium Phosphorus Magnesium 2.50 H Transferrin AST ALT Alkaline Phosphatase Total Creatine Kinase CK-MB (CK-2) Serum Total Protein Total Protein Albumin Mqnop-8-Bztxoxqqd Fbkum-0-Pldfpdyqf Gamma Globulins PEP Interpretation TSH Arterial Blood Glucose Arterial Blood Ionized Calcium Urine WBC (Auto) Urine Creatinine Urine Total Protein Crossmatch 04/25/21 04/25/21 04/25/21 10:31 11:44 12:23 WBC RBC Hgb Hct MCH RDW Plt Count Seg Neuts % (Manual) Lymphocytes % (Manual) Nucleated RBC % Seg Neutrophils # Man Lymphocytes # (Manual) PT ABG pH POC ABG pCO2 POC ABG pO2 ABG pO2 ABG O2 Saturation ABG Base Excess ABG Hemoglobin ABG Oxyhemoglobin ABG Potassium ABG Chloride ABG Glucose Oxyhemoglobin Carboxyhemoglobin Sodium Potassium Chloride Carbon Dioxide BUN Creatinine Glucose POC Glucose 215 H 191 H 229 H Hemoglobin A1c Lactic Acid Calcium Phosphorus Magnesium Transferrin AST ALT Alkaline Phosphatase Total Creatine Kinase CK-MB (CK-2) Serum Total Protein Total Protein Albumin Ywahe-5-Ctvhhcsmz Dcldg-5-Anfyyeesi Gamma Globulins PEP Interpretation TSH Arterial Blood Glucose Arterial Blood Ionized Calcium Urine WBC (Auto) Urine Creatinine Urine Total Protein Crossmatch 04/25/21 04/25/21 04/25/21 13:48 14:11 18:01 WBC RBC Hgb Hct MCH RDW Plt Count Seg Neuts % (Manual) Lymphocytes % (Manual) Nucleated RBC % Seg Neutrophils # Man Lymphocytes # (Manual) PT ABG pH POC ABG pCO2 POC ABG pO2 ABG pO2 ABG O2 Saturation ABG Base Excess ABG Hemoglobin ABG Oxyhemoglobin ABG Potassium ABG Chloride ABG Glucose Oxyhemoglobin Carboxyhemoglobin Sodium Potassium Chloride Carbon Dioxide BUN Creatinine Glucose POC Glucose 177 H 161 H 264 H Hemoglobin A1c Lactic Acid Calcium Phosphorus Magnesium Transferrin AST ALT Alkaline Phosphatase Total Creatine Kinase CK-MB (CK-2) Serum Total Protein Total Protein Albumin Qxffw-8-Fugkohvbu [place]-4-Ekdvfhuvw Gamma Globulins PEP Interpretation TSH Arterial Blood Glucose Arterial Blood Ionized Calcium Urine WBC (Auto) Urine Creatinine Urine Total Protein Crossmatch 04/25/21 04/26/21 04/26/21 21:31 01:19 06:31 WBC RBC Hgb Hct MCH RDW Plt Count Seg Neuts % (Manual) Lymphocytes % (Manual) Nucleated RBC % Seg Neutrophils # Man Lymphocytes # (Manual) PT ABG pH POC ABG pCO2 POC ABG pO2 ABG pO2 ABG O2 Saturation ABG Base Excess ABG Hemoglobin ABG Oxyhemoglobin ABG Potassium ABG Chloride ABG Glucose Oxyhemoglobin Carboxyhemoglobin Sodium Potassium Chloride Carbon Dioxide BUN Creatinine Glucose POC Glucose 371 H 356 H 428 H Hemoglobin A1c Lactic Acid Calcium Phosphorus Magnesium Transferrin AST ALT Alkaline Phosphatase Total Creatine Kinase CK-MB (CK-2) Serum Total Protein Total Protein Albumin Ifgtg-9-Cvopaywfm Dymxs-9-Woytqrcfh Gamma Globulins PEP Interpretation TSH Arterial Blood Glucose Arterial Blood Ionized Calcium Urine WBC (Auto) Urine Creatinine Urine Total Protein Crossmatch 04/26/21 04/26/21 04/26/21 09:13 09:33 09:33 WBC RBC Hgb Hct MCH 27 L RDW 16.9 H Plt Count 58 L Seg Neuts % (Manual) 77.0 H Lymphocytes % (Manual) 4.0 L Nucleated RBC % 2.0 H Seg Neutrophils # Man Lymphocytes # (Manual) 0.3 L PT ABG pH POC ABG pCO2 POC ABG pO2 ABG pO2 ABG O2 Saturation ABG Base Excess ABG Hemoglobin ABG Oxyhemoglobin ABG Potassium ABG Chloride ABG Glucose Oxyhemoglobin Carboxyhemoglobin Sodium Potassium Chloride Carbon Dioxide BUN Creatinine Glucose POC Glucose 454 H Hemoglobin A1c Lactic Acid Calcium Phosphorus 5.60 H D Magnesium Transferrin AST ALT Alkaline Phosphatase Total Creatine Kinase CK-MB (CK-2) Serum Total Protein Total Protein Albumin Ijaac-7-Jurwjskxk Wmvpd-6-Ttlrrspki Gamma Globulins PEP Interpretation TSH Arterial Blood Glucose Arterial Blood Ionized Calcium Urine WBC (Auto) Urine Creatinine Urine Total Protein Crossmatch 04/26/21 04/26/21 04/26/21 09:33 11:00 12:36 WBC RBC Hgb Hct MCH RDW Plt Count Seg Neuts % (Manual) Lymphocytes % (Manual) Nucleated RBC % Seg Neutrophils # Man Lymphocytes # (Manual) PT ABG pH 7.281 L POC ABG pCO2 POC ABG pO2 66.4 L ABG pO2 ABG O2 Saturation ABG Base Excess ABG Hemoglobin 10.9 L ABG Oxyhemoglobin 91 L ABG Potassium ABG Chloride ABG Glucose 521 H Oxyhemoglobin Carboxyhemoglobin Sodium Potassium Chloride Carbon Dioxide 19 L BUN 98 H Creatinine 3.8 H Glucose 530 H* POC Glucose 414 H Hemoglobin A1c Lactic Acid Calcium 8.1 L Phosphorus Magnesium Transferrin AST 60 H ALT 72 H Alkaline Phosphatase 168 H Total Creatine Kinase CK-MB (CK-2) Serum Total Protein Total Protein 4.6 L Albumin 1.7 L Vaspm-7-Plicjmvcr Dtqou-8-Egbrrtmjk Gamma Globulins PEP Interpretation TSH Arterial Blood Glucose 521 H Arterial Blood Ionized Calcium Urine WBC (Auto) Urine Creatinine Urine Total Protein Crossmatch 04/26/21 04/26/21 04/26/21 15:39 16:18 21:14 WBC RBC Hgb Hct MCH RDW Plt Count Seg Neuts % (Manual) Lymphocytes % (Manual) Nucleated RBC % Seg Neutrophils # Man Lymphocytes # (Manual) PT ABG pH 7.275 L POC ABG pCO2 POC ABG pO2 63.4 L ABG pO2 ABG O2 Saturation ABG Base Excess ABG Hemoglobin 8.4 L ABG Oxyhemoglobin 89.5 L ABG Potassium ABG Chloride 108.0 H ABG Glucose 404 H Oxyhemoglobin Carboxyhemoglobin Sodium Potassium Chloride Carbon Dioxide BUN Creatinine Glucose POC Glucose 324 H 242 H Hemoglobin A1c Lactic Acid Calcium Phosphorus Magnesium Transferrin AST ALT Alkaline Phosphatase Total Creatine Kinase CK-MB (CK-2) Serum Total Protein Total Protein Albumin Qnjrz-3-Dcnycqbip Nfvbo-5-Imilljfag Gamma Globulins PEP Interpretation TSH Arterial Blood Glucose 404 H Arterial Blood Ionized Calcium Urine WBC (Auto) Urine Creatinine Urine Total Protein Crossmatch 04/27/21 04/27/21 04/27/21 00:07 05:47 06:23 WBC RBC Hgb Hct MCH RDW Plt Count Seg Neuts % (Manual) Lymphocytes % (Manual) Nucleated RBC % Seg Neutrophils # Man Lymphocytes # (Manual) PT ABG pH POC ABG pCO2 POC ABG pO2 ABG pO2 ABG O2 Saturation ABG Base Excess ABG Hemoglobin ABG Oxyhemoglobin ABG Potassium ABG Chloride ABG Glucose Oxyhemoglobin Carboxyhemoglobin Sodium Potassium Chloride Carbon Dioxide BUN Creatinine Glucose POC Glucose 282 H 214 H 187 H Hemoglobin A1c Lactic Acid Calcium Phosphorus Magnesium Transferrin AST ALT Alkaline Phosphatase Total Creatine Kinase CK-MB (CK-2) Serum Total Protein Total Protein Albumin Atbaa-5-Jgfrnbbki Vnuco-3-Vocvefqpm Gamma Globulins PEP Interpretation TSH Arterial Blood Glucose Arterial Blood Ionized Calcium Urine WBC (Auto) Urine Creatinine Urine Total Protein Crossmatch 04/27/21 04/27/21 04/27/21 07:43 08:30 11:54 WBC RBC Hgb Hct MCH RDW Plt Count Seg Neuts % (Manual) Lymphocytes % (Manual) Nucleated RBC % Seg Neutrophils # Man Lymphocytes # (Manual) PT ABG pH 7.309 L POC ABG pCO2 POC ABG pO2 70.6 L ABG pO2 ABG O2 Saturation ABG Base Excess ABG Hemoglobin 9.16 L ABG Oxyhemoglobin 92.4 L ABG Potassium ABG Chloride ABG Glucose Oxyhemoglobin Carboxyhemoglobin Sodium Potassium Chloride 110.1 H Carbon Dioxide 15 L BUN 109 H Creatinine 4.3 H Glucose 218 H POC Glucose 147 H Hemoglobin A1c Lactic Acid Calcium Phosphorus Magnesium Transferrin AST 53 H ALT Alkaline Phosphatase 148 H Total Creatine Kinase 1000 H CK-MB (CK-2) Serum Total Protein Total Protein 5.2 L Albumin 1.2 L Temat-8-Xivkzajio Zkirt-1-Nrkfkqlds Gamma Globulins PEP Interpretation TSH Arterial Blood Glucose Arterial Blood Ionized Calcium Urine WBC (Auto) Urine Creatinine Urine Total Protein Crossmatch 04/27/21 04/27/21 04/28/21 21:08 23:28 04:00 WBC 12.6 H RBC 3.59 L Hgb 9.4 L Hct MCH 26 L RDW 16.6 H Plt Count 111 L Seg Neuts % (Manual) Lymphocytes % (Manual) 1.0 L Nucleated RBC % 4.0 H Seg Neutrophils # Man 11.6 H Lymphocytes # (Manual) 0.1 L PT ABG pH POC ABG pCO2 POC ABG pO2 ABG pO2 ABG O2 Saturation ABG Base Excess ABG Hemoglobin ABG Oxyhemoglobin ABG Potassium ABG Chloride ABG Glucose Oxyhemoglobin Carboxyhemoglobin Sodium Potassium Chloride Carbon Dioxide BUN Creatinine Glucose POC Glucose 136 H 201 H Hemoglobin A1c Lactic Acid Calcium Phosphorus Magnesium Transferrin AST ALT Alkaline Phosphatase Total Creatine Kinase CK-MB (CK-2) Serum Total Protein Total Protein Albumin Nvczh-4-Hucxvlgcm Tpess-0-Ldztyxzsf Gamma Globulins PEP Interpretation TSH Arterial Blood Glucose Arterial Blood Ionized Calcium Urine WBC (Auto) Urine Creatinine Urine Total Protein Crossmatch 04/28/21 04/28/21 04/28/21 04:00 05:00 05:08 WBC RBC Hgb Hct MCH RDW Plt Count Seg Neuts % (Manual) Lymphocytes % (Manual) Nucleated RBC % Seg Neutrophils # Man Lymphocytes # (Manual) PT 15.3 H ABG pH POC ABG pCO2 POC ABG pO2 ABG pO2 ABG O2 Saturation ABG Base Excess ABG Hemoglobin ABG Oxyhemoglobin ABG Potassium ABG Chloride ABG Glucose Oxyhemoglobin Carboxyhemoglobin Sodium 147 H Potassium 3.5 L D Chloride Carbon Dioxide BUN 79 H Creatinine 3.8 H Glucose 194 H POC Glucose 183 H Hemoglobin A1c Lactic Acid Calcium 8.1 L Phosphorus Magnesium Transferrin AST ALT Alkaline Phosphatase Total Creatine Kinase CK-MB (CK-2) Serum Total Protein Total Protein Albumin Zxmje-8-Eppnawgqt Avlqq-5-Dtnzrrbor Gamma Globulins PEP Interpretation TSH Arterial Blood Glucose Arterial Blood Ionized Calcium Urine WBC (Auto) Urine Creatinine Urine Total Protein Crossmatch 04/28/21 04/28/21 04/28/21 05:18 11:04 17:16 WBC RBC Hgb Hct MCH RDW Plt Count Seg Neuts % (Manual) Lymphocytes % (Manual) Nucleated RBC % Seg Neutrophils # Man Lymphocytes # (Manual) PT ABG pH POC ABG pCO2 POC ABG pO2 66.5 L ABG pO2 ABG O2 Saturation ABG Base Excess ABG Hemoglobin 9.7 L ABG Oxyhemoglobin 92.5 L ABG Potassium 3.2 L ABG Chloride ABG Glucose 200 H Oxyhemoglobin Carboxyhemoglobin Sodium Potassium Chloride Carbon Dioxide BUN Creatinine Glucose POC Glucose 174 H 135 H Hemoglobin A1c Lactic Acid Calcium Phosphorus Magnesium Transferrin AST ALT Alkaline Phosphatase Total Creatine Kinase CK-MB (CK-2) Serum Total Protein Total Protein Albumin Zzwaa-7-Qpzzyvsws Huwbd-8-Pktmfssqi Gamma Globulins PEP Interpretation TSH Arterial Blood Glucose 200 H Arterial Blood Ionized Calcium 4.5 L Urine WBC (Auto) Urine Creatinine Urine Total Protein Crossmatch 04/28/21 04/28/21 04/29/21 21:14 23:41 01:16 WBC RBC Hgb Hct MCH RDW Plt Count Seg Neuts % (Manual) Lymphocytes % (Manual) Nucleated RBC % Seg Neutrophils # Man Lymphocytes # (Manual) PT ABG pH POC ABG pCO2 POC ABG pO2 ABG pO2 ABG O2 Saturation ABG Base Excess ABG Hemoglobin ABG Oxyhemoglobin ABG Potassium ABG Chloride ABG Glucose Oxyhemoglobin Carboxyhemoglobin Sodium Potassium Chloride Carbon Dioxide BUN Creatinine Glucose POC Glucose 134 H 171 H 236 H Hemoglobin A1c Lactic Acid Calcium Phosphorus Magnesium Transferrin AST ALT Alkaline Phosphatase Total Creatine Kinase CK-MB (CK-2) Serum Total Protein Total Protein Albumin Ndxeg-3-Jgtyiyyie Jkfib-9-Pdzboamot Gamma Globulins PEP Interpretation TSH Arterial Blood Glucose Arterial Blood Ionized Calcium Urine WBC (Auto) Urine Creatinine Urine Total Protein Crossmatch 04/29/21 04/29/21 04/29/21 04:00 04:00 11:35 WBC 13.3 H RBC 3.12 L Hgb 8.3 L Hct 26.2 L MCH 27 L RDW 16.3 H Plt Count 132 L Seg Neuts % (Manual) Lymphocytes % (Manual) Nucleated RBC % Seg Neutrophils # Man Lymphocytes # (Manual) PT ABG pH POC ABG pCO2 POC ABG pO2 ABG pO2 ABG O2 Saturation ABG Base Excess ABG Hemoglobin ABG Oxyhemoglobin ABG Potassium ABG Chloride ABG Glucose Oxyhemoglobin Carboxyhemoglobin Sodium Potassium Chloride Carbon Dioxide BUN 63 H Creatinine 3.4 H Glucose 249 H POC Glucose 320 H Hemoglobin A1c Lactic Acid Calcium 8.2 L Phosphorus Magnesium Transferrin AST 61 H ALT 71 H Alkaline Phosphatase 170 H Total Creatine Kinase CK-MB (CK-2) Serum Total Protein Total Protein 5.1 L Albumin 1.6 L Xktmv-6-Dofzxlfhf Yylbt-5-Axnsqgwud Gamma Globulins PEP Interpretation TSH Arterial Blood Glucose Arterial Blood Ionized Calcium Urine WBC (Auto) Urine Creatinine Urine Total Protein Crossmatch 04/29/21 04/29/21 04/29/21 13:30 16:01 21:58 WBC RBC Hgb Hct MCH RDW Plt Count Seg Neuts % (Manual) Lymphocytes % (Manual) Nucleated RBC % Seg Neutrophils # Man Lymphocytes # (Manual) PT ABG pH POC ABG pCO2 POC ABG pO2 ABG pO2 ABG O2 Saturation ABG Base Excess ABG Hemoglobin ABG Oxyhemoglobin ABG Potassium ABG Chloride ABG Glucose Oxyhemoglobin Carboxyhemoglobin Sodium Potassium Chloride Carbon Dioxide BUN Creatinine Glucose POC Glucose 297 H 260 H Hemoglobin A1c Lactic Acid Calcium Phosphorus Magnesium Transferrin AST ALT Alkaline Phosphatase Total Creatine Kinase CK-MB (CK-2) Serum Total Protein Total Protein Albumin Lidth-8-Qbgratccn Swcnp-6-Dqdunmwmj Gamma Globulins PEP Interpretation TSH Arterial Blood Glucose Arterial Blood Ionized Calcium Urine WBC (Auto) > 182.0 H Urine Creatinine Urine Total Protein Crossmatch 04/29/21 04/30/21 04/30/21 23:35 04:00 04:00 WBC 11.4 H RBC 3.27 L Hgb 8.7 L Hct 27.5 L MCH 27 L RDW 16.6 H Plt Count Seg Neuts % (Manual) Lymphocytes % (Manual) Nucleated RBC % Seg Neutrophils # Man Lymphocytes # (Manual) PT ABG pH POC ABG pCO2 POC ABG pO2 ABG pO2 ABG O2 Saturation ABG Base Excess ABG Hemoglobin ABG Oxyhemoglobin ABG Potassium ABG Chloride ABG Glucose Oxyhemoglobin Carboxyhemoglobin Sodium Potassium 3.1 L Chloride Carbon Dioxide BUN 79 H Creatinine 3.9 H Glucose 275 H POC Glucose 254 H Hemoglobin A1c Lactic Acid Calcium Phosphorus 5.60 H D Magnesium Transferrin AST ALT Alkaline Phosphatase Total Creatine Kinase CK-MB (CK-2) Serum Total Protein Total Protein Albumin Ojwpp-8-Ooghwdfuz Ixfzp-1-Vlyxoeqjf Gamma Globulins PEP Interpretation TSH Arterial Blood Glucose Arterial Blood Ionized Calcium Urine WBC (Auto) Urine Creatinine Urine Total Protein Crossmatch 04/30/21 04/30/21 04/30/21 05:17 05:31 12:31 WBC RBC Hgb Hct MCH RDW Plt Count Seg Neuts % (Manual) Lymphocytes % (Manual) Nucleated RBC % Seg Neutrophils # Delbert Lymphocytes # (Manual) PT ABG pH 7.452 H POC ABG pCO2 30.5 L POC ABG pO2 54.5 L ABG pO2 ABG O2 Saturation ABG Base Excess ABG Hemoglobin 10.1 L ABG Oxyhemoglobin 87.4 L ABG Potassium 2.9 L ABG Chloride ABG Glucose 305 H Oxyhemoglobin Carboxyhemoglobin Sodium Potassium Chloride Carbon Dioxide BUN Creatinine Glucose POC Glucose 267 H 259 H Hemoglobin A1c Lactic Acid Calcium Phosphorus Magnesium Transferrin AST ALT Alkaline Phosphatase Total Creatine Kinase CK-MB (CK-2) Serum Total Protein Total Protein Albumin Eqhel-4-Vrqccwbgv Mobyv-5-Lcxuzuegr Gamma Globulins PEP Interpretation TSH Arterial Blood Glucose 305 H Arterial Blood Ionized Calcium Urine WBC (Auto) Urine Creatinine Urine Total Protein Crossmatch 04/30/21 04/30/21 05/01/21 17:50 22:24 00:09 WBC RBC Hgb Hct MCH RDW Plt Count Seg Neuts % (Manual) Lymphocytes % (Manual) Nucleated RBC % Seg Neutrophils # Man Lymphocytes # (Manual) PT ABG pH POC ABG pCO2 POC ABG pO2 ABG pO2 ABG O2 Saturation ABG Base Excess ABG Hemoglobin ABG Oxyhemoglobin ABG Potassium ABG Chloride ABG Glucose Oxyhemoglobin Carboxyhemoglobin Sodium Potassium Chloride Carbon Dioxide BUN Creatinine Glucose POC Glucose 161 H 146 H 149 H Hemoglobin A1c Lactic Acid Calcium Phosphorus Magnesium Transferrin AST ALT Alkaline Phosphatase Total Creatine Kinase CK-MB (CK-2) Serum Total Protein Total Protein Albumin Dkigr-9-Eccezbiee Rqjdm-6-Dwwzkxupw Gamma Globulins PEP Interpretation TSH Arterial Blood Glucose Arterial Blood Ionized Calcium Urine WBC (Auto) Urine Creatinine Urine Total Protein Crossmatch 05/01/21 05/01/21 05/01/21 03:30 04:00 04:00 WBC 12.0 H RBC 3.08 L Hgb 8.1 L Hct 25.6 L MCH 26 L RDW 16.3 H Plt Count Seg Neuts % (Manual) Lymphocytes % (Manual) Nucleated RBC % Seg Neutrophils # Man Lymphocytes # (Manual) PT ABG pH 7.493 H POC ABG pCO2 POC ABG pO2 ABG pO2 ABG O2 Saturation ABG Base Excess ABG Hemoglobin 25.0 H ABG Oxyhemoglobin ABG Potassium ABG Chloride ABG Glucose 167 H Oxyhemoglobin Carboxyhemoglobin 0.4 L Sodium Potassium 3.5 L Chloride Carbon Dioxide BUN 62 H Creatinine 3.3 H Glucose 179 H POC Glucose Hemoglobin A1c Lactic Acid Calcium 8.3 L Phosphorus Magnesium Transferrin AST ALT Alkaline Phosphatase Total Creatine Kinase CK-MB (CK-2) Serum Total Protein Total Protein Albumin Hxwsz-1-Qzxzmohzt Sfcui-1-Qzxruvpnt Gamma Globulins PEP Interpretation TSH Arterial Blood Glucose 167 H Arterial Blood Ionized Calcium Urine WBC (Auto) Urine Creatinine Urine Total Protein Crossmatch 05/01/21 05/01/21 05/01/21 05:48 11:49 16:24 WBC RBC Hgb Hct MCH RDW Plt Count Seg Neuts % (Manual) Lymphocytes % (Manual) Nucleated RBC % Seg Neutrophils # Man Lymphocytes # (Manual) PT ABG pH POC ABG pCO2 POC ABG pO2 ABG pO2 ABG O2 Saturation ABG Base Excess ABG Hemoglobin ABG Oxyhemoglobin ABG Potassium ABG Chloride ABG Glucose Oxyhemoglobin Carboxyhemoglobin Sodium Potassium Chloride Carbon Dioxide BUN Creatinine Glucose POC Glucose 197 H 167 H 157 H Hemoglobin A1c Lactic Acid Calcium Phosphorus Magnesium Transferrin AST ALT Alkaline Phosphatase Total Creatine Kinase CK-MB (CK-2) Serum Total Protein Total Protein Albumin Qgoio-4-Uailofzgc Jinka-3-Djguxtmnm Gamma Globulins PEP Interpretation TSH Arterial Blood Glucose Arterial Blood Ionized Calcium Urine WBC (Auto) Urine Creatinine Urine Total Protein Crossmatch 05/01/21 05/02/21 05/02/21 23:25 04:00 04:00 WBC 14.2 H RBC 2.61 L Hgb 6.9 L Hct 22.1 L MCH 27 L RDW 16.1 H Plt Count Seg Neuts % (Manual) Lymphocytes % (Manual) Nucleated RBC % Seg Neutrophils # Man Lymphocytes # (Manual) PT ABG pH POC ABG pCO2 POC ABG pO2 ABG pO2 ABG O2 Saturation ABG Base Excess ABG Hemoglobin ABG Oxyhemoglobin ABG Potassium ABG Chloride ABG Glucose Oxyhemoglobin Carboxyhemoglobin Sodium Potassium Chloride Carbon Dioxide BUN 49 H Creatinine 2.8 H Glucose 117 H POC Glucose 147 H Hemoglobin A1c Lactic Acid Calcium Phosphorus Magnesium Transferrin AST ALT Alkaline Phosphatase Total Creatine Kinase CK-MB (CK-2) Serum Total Protein Total Protein Albumin Qrmho-4-Sojpugpwm Laqjb-4-Tykmlldys Gamma Globulins PEP Interpretation TSH Arterial Blood Glucose Arterial Blood Ionized Calcium Urine WBC (Auto) Urine Creatinine Urine Total Protein Crossmatch 05/02/21 05/02/21 05/02/21 04:34 05:23 12:00 WBC RBC Hgb Hct MCH RDW Plt Count Seg Neuts % (Manual) Lymphocytes % (Manual) Nucleated RBC % Seg Neutrophils # Man Lymphocytes # (Manual) PT ABG pH 7.487 H POC ABG pCO2 POC ABG pO2 78.6 L ABG pO2 ABG O2 Saturation ABG Base Excess ABG Hemoglobin 11.5 L ABG Oxyhemoglobin ABG Potassium ABG Chloride ABG Glucose 122 H Oxyhemoglobin Carboxyhemoglobin Sodium Potassium Chloride Carbon Dioxide BUN Creatinine Glucose POC Glucose 119 H Hemoglobin A1c Lactic Acid Calcium Phosphorus Magnesium Transferrin AST ALT Alkaline Phosphatase Total Creatine Kinase CK-MB (CK-2) Serum Total Protein Total Protein Albumin Kxbxy-8-Jrlwfvxqf Xfvlz-6-Jzgbubsps Gamma Globulins PEP Interpretation TSH Arterial Blood Glucose 122 H Arterial Blood Ionized Calcium Urine WBC (Auto) Urine Creatinine Urine Total Protein Crossmatch See Detail 05/02/21 12:04 WBC RBC Hgb Hct MCH RDW Plt Count Seg Neuts % (Manual) Lymphocytes % (Manual) Nucleated RBC % Seg Neutrophils # Man Lymphocytes # (Manual) PT ABG pH POC ABG pCO2 POC ABG pO2 ABG pO2 ABG O2 Saturation ABG Base Excess ABG Hemoglobin ABG Oxyhemoglobin ABG Potassium ABG Chloride ABG Glucose Oxyhemoglobin Carboxyhemoglobin Sodium Potassium Chloride Carbon Dioxide BUN Creatinine Glucose POC Glucose 115 H Hemoglobin A1c Lactic Acid Calcium Phosphorus Magnesium Transferrin AST ALT Alkaline Phosphatase Total Creatine Kinase CK-MB (CK-2) Serum Total Protein Total Protein Albumin Wisyh-8-Xexinxpvy Ddwgh-5-Qmmyziksz Gamma Globulins PEP Interpretation TSH Arterial Blood Glucose Arterial Blood Ionized Calcium Urine WBC (Auto) Urine Creatinine Urine Total Protein Crossmatch
--- NOTE | 2021-05-02 15:13 | Progress Note ---
<TANYAHENRIETTA ShannonJericho - Last Filed: 05/02/21 15:42> Assessment and Plan Assessment and plan: This is a 80-year-old female longterm resident with GERD, hypothyroidism, hyperlipidemia, schizophrenia and dementia admitted with hypothermia, hyponatremia, hypokalemia, lactic acidosis, acute kidney injury, rhabdomyolysis and hyperosmolar nonketotic state. Neuro: Acute metabolic encephalopathy, normal pressure hydrocephalus -CT head shows lateral ventricles and third ventricle dilation, raises po ssibility of normal pressure hydrocephalus -Neurology and neurosurgery consulted, appreciate recommendations -neurosurgery has no acute interventions -Will obtain MRI brain today -04/29 s/p spinal tap removal 24 mL, mental is unchanged -Maintain sleep-wake cycle -Avoid delirium -Correct electrolyte derangements -Hold off on restarting home antipsychotic medications when obtained -Risperidone 3 mg, Donepazil 5 mg Cardio: Hypotension -Vasopressor support with Levophed -MAP goal above 65 -Blood pressure monitoring per protocol -Home amlodipine 10 mg on hold Respiratory: Acute hypoxic respiratory failure -s/p Bipap and ventimask -s/p bronchoscopy on 04/26 -Intubated 04/26 with 7.5 oett at 22 lips -Am vent settings: AC Rate 14, TV 450, Peep 8, FiO2 40% -see RT notes for titration -AM ABG noted -s/p racimec epi x2 04/22 and 04/23 -Supplemental oxygen as needed -SPO2 monitoring -Pulmonary hygiene -Repeat CXR shows increased interstitial prominence of densities in bilateral lungs GI: Hypoalbuminemia, transaminitis -Presented with transaminitis -Trend LFTs -Ntr consult for TF -FWF 140 ml Q 4 hr, -24 hours +777 ml -BR: Senokot -PPI -Nutritional supplementation -BMS in place : Severe hypernatremia (resolved), hyperchloremia (resolved), acute kidney injury likely secondary to vasomotor nephropathy, urinary retention, rhabdomyolysis (resolved) -FeNA 0.50 indicating prerenal sate -Nephrology consulted, appreciate recommendations -HD initiated 04/27 -HD per nephrology -Luther catheter placed for strict intake and output -changed today -Avoid nephrotoxic medications -Trend BMP, CK -Renally dose medications -renal US WNL per read ID: Sepsis likely 2/2 UTI and PNA -ID consulted, appreciate recommendations -COVID-19 PCR negative -04/26/2021 sputum culture: Roselyn nonalbicans -04/29/2021 UA showed significant pyuria. -Lumbar puncture with CSF showing 14 WBC, 324 RBC, glucose 161, protein 51. -Abx per ID: IV meropenem, renally adjusted -Exchange Luther, urine culture ordered -Trend WBC and fever curve -f/u cultures Endo: s/p HHNK, h/o hypothyroidism -Restart home levothyroxine (50 mcg q day) -s/p Insulin drip x2 -SSI, long acting insulin (adjust as needed) -TSH 6.04, T4 0.93 -Avoid hypoglycemia Heme: Leukocytosis, thrombocytopenia (resolved), anemia -HIT (-) -Trend CBC -Transfuse to hemoglobin less than 7 -hbg 6.9 -transfuse one unit PRBC -SCD to bilateral lower extremities while in bed -BUE dopplar US negative for DVT The high probability of a clinically significant, sudden or life threatening deterioration of the [multi] system(s) required my full and direct attention, intervention and personal management. The aggregate critical care time was [60] minutes. This time is in addition to time spent performing reported procedures but includes the following: [x] Data Review and interpretation [x] Patient assessment and monitoring of vital signs [x] Documentation [x] Medication orders and management Disposition Plan: icu Total Time Spent with Patient (Minutes): 60 History Interval history: This is a 80-year-old female who was longterm resident at [facility] with GERD, hypothyroidism, hyperlipidemia, schizophrenia and dementia presented to the emergency department on 04/20 after being found unresponsive by the staff via EMS. Per EMS glucose levels read as high. Work-up in the emergency department revealed severe hypernatremia, leukocytosis, metabolic acidosis, hyperchloremia, elevated BUN/creatinine, lactic acidosis and hyperglycemia. Patient was also hypothermic on admit. CT head showed findings suggestive of the possibility of normal pressure hydrocephalus. Patient was admitted to the hospitalist service with acute metabolic encephalopathy, diabetic hyperosmolar n onketotic state, acute kidney injury, hypernatremia, rhabdomyolysis and leukocytosis with consults to nephrology and CCM. 04/21: Given 1 L LR bolus per nephrology and D5W increased to 125 mL's per hour, COVID-19 PCR pending, CXR and ABG ordered as patient was weaned from BiPAP to 3 L nasal cannula however was uptitrated back to nonrebreather. Will obtain blood cultures x2 given her leukocytosis and hypothermia. Replace potassium. Neurosurgery and neurology consulted and Luther catheter placed. 04/22: Improvement to sodium noted, slight hypokalemia which will be repleted, slight improvement to renal function, LFTs and rhabdomyolysis. Seen by neurosurgery today. Patient still making urine. transition to ssi and start TF as AG 15 04/23/2021: Given racemic epinephrine again due to stridor, continue IV fluids per nephrology, continue to trend sodium and BMP. 04/24/2021: 70/30 increased d/t hyperglycemia but recent BMP showed BG>300, gave additional 5 units IV insulin and ordered 5 units TID scheduled. However after IV insulin her PCOT was 400. Start on insulin gtt for hyperglycemia. Per RN she was not of IV D5 overnight d/t having one IV which was needed for emergency. Day RN did start dextrose. Remains with hyperglycemia. 04/25: Patient obtunded, withdrawal to pain only, on 50%Venti mask SPO2 abobe 92%. Plan to transition to SubQ insulin. Patient with mild hypernatremia this am, FWF added, will stop IVF for now. 04/26: Patient s/p intubation this am. Mentation is unchanged, plan for MRI brain today per NeuroSurg. Still hyperglycemic, hypernatremia improved, D5W D/katlyn, and basal insulin adjusted. 04/27: Bronch overnight. CXR with mild improvement. D/w Nephro plan for HD today, RIJ VasCath inserted. MRI on hold per [facility] patient is too unstable at this time, plan for possible spinal drained tomorrow to see if mentation will improve. 04/28: Tolerated HD overnight, only UF. Mentation remains the same. D/w [facility] plan for possible large volume spinal tap under fluoroscopy today. Plan for possible HD again today. Continue FWF for elevated Na. 04/29: MARY overnight. Plan for spinal tap this am. febrile overnight with leukocytosis, remains on pressors and more tachycardic now. Will panculture patient, and empiric IV was initiated. Remains hyperglycemic, basal insulin adjusted. 04/30: Patient's mentation remains unchanged post spinal tap. Plan for possible MRI brain next week. Afebrile overnight and leukocytosis improved, However, vent settings are going up and this am ABG with hypoxia, this am CXR with worsening opacities. Patient with 3+ pitting edema. Continue HD per Nephro. Continue current empiric IV abx, f/u on culture data, might need to get ID on board if worsen. 05/01: Mentation is unchanged, still on pressors. Febrile this am, continue IV abx, ID consulted. 3L out yesterday, plan for HD again tomorrow. Plt count improved, might need to restart AC, will D/w CCM. 05/02: No change in mentation and she is now noted to be decorticating to pain -> MRI brain ordered. Scheduled for HD today. ID consult completed. Hospitalist Physical - Constitutional Vitals: Temp Pulse Resp BP Pulse Ox 97.9 F 105 H 22 144/75 100 05/02/21 15:05 05/02/21 15:05 05/02/21 15:05 05/02/21 15:05 05/02/21 15:05 General appearance: Present: no acute distress, other (Intubated and unresponsive) - EENT Eyes: Present: PERRL, EOM intact ENT: hearing intact, clear oral mucosa, dentition normal - Neck Neck: Present: normal ROM - Respiratory Respiratory effort: normal Respiratory: bilateral: rhonchi - Cardiovascular Rhythm: regular Heart Sounds: Present: S1 & S2. Absent: systolic murmur, diastolic murmur - Extremities Extremities: no ischemia, pulses intact, pulses symmetrical, normal temperature, normal color Extremity abnormal: edema Peripheral Pulses: within normal limits - Abdominal General gastrointestinal: soft, non-tender, non-distended, normal bowel sounds - Integumentary Integumentary: Present: warm, dry - Psychiatric Psychiatric: other - Neurologic Neurologic: other (decorticating to painful stimuli, PERRL, intact cough/gag reflex) - Allied Health Allied health notes reviewed: nursing, RT, social work HEART Score - HEART Score Troponin: Troponin T 0.021 ng/mL (0.00-0.029) 04/20/21 17:10 Results - Labs CBC & Chem 7: 05/02/21 04:00 05/02/21 04:00 Labs: Laboratory Last Values WBC 14.2 K/mm3 (4.5-11.0) H 05/02/21 04:00 RBC 2.61 M/mm3 (3.65-5.03) L 05/02/21 04:00 Hgb 6.9 gm/dl (10.1-14.3) L 05/02/21 04:00 Hct 22.1 % (30.3-42.9) L 05/02/21 04:00 MCV 85 fl (79-97) 05/02/21 04:00 MCH 27 pg (28-32) L 05/02/21 04:00 MCHC 31 % (30-34) 05/02/21 04:00 RDW 16.1 % (13.2-15.2) H 05/02/21 04:00 Plt Count 198 K/mm3 (140-440) 05/02/21 04:00 Add Manual Diff Complete 04/28/21 04:00 Total Counted 100 04/28/21 04:00 Seg Neutrophils % Auctioneer Art 04/28/21 04:00 Seg Neuts % (Manual) 77.0 % (40.0-70.0) H 04/26/21 09:33 Band Neutrophils % 2.0 % 04/28/21 04:00 Lymphocytes % (Manual) 1.0 % (13.4-35.0) L 04/28/21 04:00 Reactive Lymphs % (Man) 0 % 04/28/21 04:00 Monocytes % (Manual) 1.0 % (0.0-7.3) 04/28/21 04:00 Eosinophils % (Manual) 3.0 % (0.0-4.3) 04/28/21 04:00 Metamyelocytes % 1.0 % 04/28/21 04:00 Myelocytes % 0 % 04/28/21 04:00 Promyelocytes % 0 % 04/28/21 04:00 Blast Cells % 0 % 04/28/21 04:00 Nucleated RBC % 4.0 % (0.0-0.9) H 04/28/21 04:00 Seg Neutrophils # Man 11.6 K/mm3 (1.8-7.7) H 04/28/21 04:00 Band Neutrophils # 0.3 K/mm3 04/28/21 04:00 Lymphocytes # (Manual) 0.1 K/mm3 (1.2-5.4) L 04/28/21 04:00 Abs React Lymphs (Man) 0.0 K/mm3 04/28/21 04:00 Monocytes # (Manual) 0.1 K/mm3 (0.0-0.8) 04/28/21 04:00 Eosinophils # (Manual) 0.4 K/mm3 (0.0-0.4) 04/28/21 04:00 Basophils # (Manual) 0.0 K/mm3 (0.0-0.1) 04/28/21 04:00 Metamyelocytes # 0.1 K/mm3 04/28/21 04:00 Myelocytes # 0.0 K/mm3 04/28/21 04:00 Promyelocytes # 0.0 K/mm3 04/28/21 04:00 Blast Cells # 0.0 K/mm3 04/28/21 04:00 WBC Morphology Not Reportable 04/28/21 04:00 Hypersegmented Neuts Not Reportable 04/28/21 04:00 Hyposegmented Neuts Not Reportable 04/28/21 04:00 Hypogranular Neuts Not Reportable 04/28/21 04:00 Smudge Cells Not Reportable 04/28/21 04:00 Toxic Granulation Not Reportable 04/28/21 04:00 Toxic Vacuolation Not Reportable 04/28/21 04:00 Dohle Bodies Not Reportable 04/28/21 04:00 Pelger-Huet Anomaly Not Reportable 04/28/21 04:00 Moni Rods Not Reportable 04/28/21 04:00 Platelet Estimate Consistent w auto 04/28/21 04:00 Clumped Platelets Not Reportable 04/28/21 04:00 Plt Clumps, EDTA Not Reportable 04/28/21 04:00 Large Platelets Few 04/28/21 04:00 Giant Platelets Not Reportable 04/28/21 04:00 Platelet Satelliting Not Reportable 04/28/21 04:00 Plt Morphology Comment Not Reportable 04/28/21 04:00 RBC Morphology Not Reportable 04/28/21 04:00 Dimorphic RBCs Not Reportable 04/28/21 04:00 Polychromasia Not Reportable 04/28/21 04:00 Hypochromasia Not Reportable 04/28/21 04:00 Poikilocytosis Not Reportable 04/28/21 04:00 Anisocytosis Not Reportable 04/28/21 04:00 Microcytosis Not Reportable 04/28/21 04:00 Macrocytosis Not Reportable 04/28/21 04:00 Spherocytes Not Reportable 04/28/21 04:00 Pappenheimer Bodies Not Reportable 04/28/21 04:00 Sickle Cells Not Reportable 04/28/21 04:00 Target Cells 1+ 04/28/21 04:00 Tear Drop Cells Not Reportable 04/28/21 04:00 Ovalocytes Not Reportable 04/28/21 04:00 Helmet Cells Not Reportable 04/28/21 04:00 Parkinson-Mickleton Bodies Not Reportable 04/28/21 04:00 Snyder Rings Not Reportable 04/28/21 04:00 Kirkland Cells Not Reportable 04/28/21 04:00 Bite Cells Not Reportable 04/28/21 04:00 Crenated Cell Not Reportable 04/28/21 04:00 Elliptocytes Not Reportable 04/28/21 04:00 Acanthocytes (Spur) Not Reportable 04/28/21 04:00 Rouleaux Not Reportable 04/28/21 04:00 Hemoglobin C Crystals Not Reportable 04/28/21 04:00 Schistocytes Not Reportable 04/28/21 04:00 Malaria parasites Not Reportable 04/28/21 04:00 Herrera Bodies Not Reportable 04/28/21 04:00 Hem Pathologist Commnt No 04/28/21 04:00 PT 15.3 Sec. (12.2-14.9) H 04/28/21 05:00 INR 1.09 (0.87-1.13) 04/28/21 05:00 APTT 36.6 Sec. (24.2-36.6) 04/28/21 05:00 Heparin Anti-Xa, Unfract Negative (Negative) 04/24/21 17:29 ABG pH 7.487 (7.320-7.450) H 05/02/21 04:34 POC ABG pCO2 35.3 mmHg (32.0-48.0) 05/02/21 04:34 ABG pCO2 31.6 mm Hg 04/21/21 15:47 POC ABG pO2 78.6 mmHg (83-108) L 05/02/21 04:34 ABG pO2 168.1 mm Hg (80.0-90.0) H 04/21/21 15:47 POC ABG HCO3 26.1 05/02/21 04:34 ABG HCO3 23.3 mmol/L (20.0-26.0) 04/21/21 15:47 ABG O2 Saturation 96.0 (0-100) 05/02/21 04:34 ABG O2 Content 12.7 (0.0-44) 04/21/21 15:47 POC ABG Base Excess 2.9 05/02/21 04:34 ABG Base Excess 0.3 mmol/L (-2.0-3.0) 04/21/21 15:47 ABG Hemoglobin 11.5 (12.0-17.5) L 05/02/21 04:34 ABG Oxyhemoglobin 95.1 (94-98) 05/02/21 04:34 ABG Carboxyhemoglobin 1.0 % (0.0-5.0) 04/21/21 15:47 ABG Methemoglobin 0.3 (0.0-1.5) 05/02/21 04:34 ABG Sodium 138.6 mmol/L (136.0-145.0) 05/02/21 04:34 ABG Potassium 3.4 mmol/L (3.40-4.50) 05/02/21 04:34 ABG Chloride 105.0 mmol/L (98-107) 05/02/21 04:34 ABG Glucose 122 mg/dL (65-95) H 05/02/21 04:34 VBG pH 7.397 (7.320-7.420) 04/20/21 17:10 Oxyhemoglobin 97.5 % (95.0-99.0) 04/21/21 15:47 Carboxyhemoglobin 0.6 (0.5-1.5) 05/02/21 04:34 FiO2 100 % 04/21/21 15:47 FiO2 % 40.0 05/02/21 04:34 Sodium 145 mmol/L (137-145) 05/02/21 04:00 Potassium 3.8 mmol/L (3.6-5.0) 05/02/21 04:00 Chloride 107.0 mmol/L (98-107) 05/02/21 04:00 Carbon Dioxide 26 mmol/L (22-30) 05/02/21 04:00 Anion Gap 16 mmol/L 05/02/21 04:00 BUN 49 mg/dL (7-17) H 05/02/21 04:00 Creatinine 2.8 mg/dL (0.6-1.2) H 05/02/21 04:00 Estimated GFR 20 ml/min 05/02/21 04:00 BUN/Creatinine Ratio 18 % 05/02/21 04:00 Glucose 117 mg/dL (65-100) H 05/02/21 04:00 POC Glucose 115 mg/dL (70-105) H 05/02/21 12:04 Hemoglobin A1c 17.1 % (4-6) H 04/22/21 15:55 Lactic Acid 1.90 mmol/L (0.7-2.0) 04/20/21 19:56 Calcium 8.8 mg/dL (8.4-10.2) 05/02/21 04:00 Phosphorus 3.80 mg/dL (2.5-4.5) 05/02/21 04:00 Magnesium 1.80 mg/dL (1.7-2.3) 05/02/21 04:00 Iron 62 ug/dL (37-170) 04/24/21 17:29 TIBC 285 mcg/dL (250-450) 04/24/21 17:29 % Saturation 21.75 % 04/24/21 17:29 Transferrin 112 mg/dl (192-382) L 04/24/21 17:29 Total Bilirubin 0.30 mg/dL (0.1-1.2) 04/29/21 04:00 Direct Bilirubin < 0.2 mg/dL (0-0.2) 04/29/21 04:00 Indirect Bilirubin 0.1 mg/dL 04/29/21 04:00 AST 61 units/L (5-40) H 04/29/21 04:00 ALT 71 units/L (7-56) H 04/29/21 04:00 Alkaline Phosphatase 170 units/L (35-129) H 04/29/21 04:00 Ammonia 29.0 umol/L (25-60) 04/20/21 17:10 Total Creatine Kinase 1000 units/L (30-135) H 04/27/21 07:43 CK-MB (CK-2) 36.0 ng/mL (0.0-4.0) H 04/20/21 17:10 CK-MB (CK-2) Rel Index 0.9 (0-4) 04/20/21 17:10 Troponin T 0.021 ng/mL (0.00-0.029) 04/20/21 17:10 Serum Total Protein 5.5 g/dL (6.1-8.1) L 04/22/21 08:59 Total Protein 5.1 g/dL (6.3-8.2) L 04/29/21 04:00 Albumin 1.6 g/dL (3.9-5) L 04/29/21 04:00 Albumin/Globulin Ratio 0.5 % 04/29/21 04:00 Iburt-8-Utigrpxby 0.6 g/dL (0.2-0.3) H 04/22/21 08:59 Vlwid-2-Mkxjzsbic 1.0 g/dL (0.5-0.9) H 04/22/21 08:59 Beta Globulins 0.3 g/dL (0.2-0.5) 04/22/21 08:59 Gamma Globulins 0.6 g/dL (0.8-1.7) L 04/22/21 08:59 Abnorm Protein Band 1 see below 04/22/21 08:59 PEP Interpretation see below H 04/22/21 08:59 TSH 6.040 mlU/mL (0.270-4.200) H 04/20/21 17:10 Free T4 0.93 ng/dL (0.76-1.46) 04/20/21 17:10 Arterial Blood Glucose 122 mg/dL (65-95) H 05/02/21 04:34 Arterial Blood Ionized Calcium 4.5 mg/dL (4.6-5.3) L 04/28/21 05:18 Urine Color Yellow (Yellow) 04/29/21 13:30 Urine Turbidity Turbid (Clear) 04/29/21 13:30 Urine pH 5.0 (5.0-7.0) 04/29/21 13:30 Ur Specific [place]plane 1.010 (1.003-1.030) 04/29/21 13:30 Urine Protein 100 mg/dl mg/dL (Negative) 04/29/21 13:30 Urine Glucose (UA) 150 mg/dL (Negative) 04/29/21 13:30 Urine Ketones Neg mg/dL (Negative) 04/29/21 13:30 Urine Blood Lg (Negative) 04/29/21 13:30 Urine Nitrite Neg (Negative) 04/29/21 13:30 Urine Bilirubin Neg (Negative) 04/29/21 13:30 Urine Urobilinogen < 2.0 mg/dL (<2.0) 04/29/21 13:30 Ur Leukocyte Esterase Lg (Negative) 04/29/21 13:30 Urine WBC (Auto) > 182.0 /HPF (0.0-6.0) H 04/29/21 13:30 Urine RBC (Auto) > 182.0 /HPF (0.0-6.0) 04/29/21 13:30 U Epithel Cells (Auto) 4.0 /HPF (0-13.0) 04/29/21 13:30 Urine WBC Clumps 3+ /HPF 04/29/21 13:30 Urine Mucus Few /HPF 04/29/21 13:30 Urine Yeast (Budding) 3+ /HPF 04/29/21 13:30 Urine Osmolality 446 Mosm/kg 04/21/21 08:01 Urine Creatinine 44.3 mg/dL (0.1-20.0) H 04/21/21 08:01 Urine Sodium 71 mmol/L 04/21/21 08:01 Urine Total Protein 12 mg/dL (5-11.8) H 04/21/21 08:01 CSF Appearance Clear 04/29/21 11:45 CSF Color Colorless 04/29/21 11:45 CSF WBC 14 /mm3 (1-10) 04/29/21 11:45 CSF RBC 324 /mm3 (0-0) 04/29/21 11:45 CSF Seg Neutrophils 50.0 % (0-6) 04/29/21 11:45 CSF Lymphocytes % 40.0 % (40-80) 04/29/21 11:45 CSF Reactive Lymphs Not Reportable 04/29/21 11:45 CSF Monocytes % 10.0 % (15-45) 04/29/21 11:45 CSF Eosinophils % Not Reportable 04/29/21 11:45 CSF Basophils Not Reportable 04/29/21 11:45 CSF Pathologist Review C 04/29/21 11:45 CSF Glucose 161 mg/dL 04/29/21 11:45 CSF Total Protein 51 mg/dL 04/29/21 11:45 Plasma/Serum Alcohol < 0.01 % (0-0.07) 04/20/21 17:10 Heparin-induced Plt Ab Negative (Negative) 04/24/21 17:29 UF Heparin High Dose 1 % Release 04/24/21 17:29 EFE UFH Low Dose 0.1 0 % Release 04/24/21 17:29 EFE UFH Low Dose 0.5 0 % Release 04/24/21 17:29 Coronavirus (PCR) Negative (Negative) 04/21/21 Unknown Hepatitis A IgM Ab Non-reactive (NonReactive) 04/27/21 12:49 Hep Bs Antigen Nonreactive (Negative) 04/27/21 12:49 Hep B Core IgM Ab Non-reactive (NonReactive) 04/27/21 12:49 Hepatitis C Antibody Non-reactive (NonReactive) 04/27/21 12:49 Blood Type O POSITIVE 05/02/21 12:00 Antibody Screen Negative 05/02/21 12:00 Crossmatch See Detail 05/02/21 12:00 Microbiology: Microbiology 04/29/21 13:15 Peripheral/Venous Blood Culture - Preliminary NO GROWTH AFTER 48 HOURS 04/29/21 11:56 Tracheal Aspirate Sputum Culture - Final Luther/IV: Voiding Method Indwelling Catheter Active Medications - Current Medications Current Medications: Generic Name Dose Route Start Last Admin Trade Name Freq PRN Reason Stop Dose Admin Acetaminophen 650 mg 04/20/21 21:31 05/01/21 18:15 Acetaminophen 325 Mg Tab PO 650 mg Q4H PRN Administration Pain MILD(1-3)/Fever >100.5/TURCIOS Albuterol 2.5 mg 04/22/21 14:49 04/23/21 15:18 Albuterol 2.5 Mg/3 Ml Nebu IH 2.5 mg Q4HRT PRN Administration Shortness Of Breath Lipase/Protease/Amylase 1 each 04/25/21 14:13 Lipase 10,500/Protease 25,000/Amylase 43,750 (Units) Dr Vasquez FEEDTUBE PRN PRN For Clogged Feeding Tube Dextrose 50 ml 04/24/21 11:36 Dextrose 50% In Water (25gm) 50 Ml Syringe IV Q30MIN PRN Hypoglycemia Protocol Famotidine 10 mg 04/27/21 10:00 05/02/21 09:30 Famotidine 10 Mg Tab FEEDTUBE 10 mg BID AZIZA Administration Hydralazine HCl 10 mg 04/24/21 21:22 Hydralazine 20 Mg/1 Ml Inj IV Q4HR PRN elevated BP Hydrophilic Ointment 1 applic 04/26/21 11:16 Lip Therapy Vaseline TP Q2HR PRN Dry Lips NORepinephrine/NS 8 MG-250 ML 8 mg in 250 mls @ 3.75 mls/hr 04/26/21 16:00 05/02/21 08:30 Norepinephrine/Ns 8 Mg-250 Ml (Double Conc) IV 4 mcg/min TITRATE AZIZA 7.5 mls/hr Titration Protocol 2 MCG/MIN Sodium Chloride 100 mls @ 999 mls/hr 05/01/21 12:44 Nacl 0.9% IV MITCH PRN Hypotension MEROPENEM/NS 1 GRAM/100 ML 1 gram in 100 mls @ 100 mls/hr 05/02/21 12:00 Merrem/Ns 1 Gram/100 Ml IV Q24H [facility] Protocol Insulin Human Lispro 0 unit 04/25/21 18:00 05/02/21 12:16 Insulin Lispro 100 Unit/Ml SUB-Q Not Given Q6HR [facility] Protocol Insulin Human NPH 40 unit 04/30/21 10:00 05/02/21 09:30 Insulin Nph, Human 100 Unit/1 Ml SUB-Q 40 unit Q12HR AZIZA Administration Lorazepam 1 mg 04/26/21 11:15 04/30/21 23:00 Lorazepam 2 Mg/Ml Vial IV 1 mg Q4H PRN Administration Sedation Metoclopramide HCl 5 mg 04/20/21 21:31 Metoclopramide 10 Mg/2 Ml Inj IV Q6H PRN Nausea And Vomiting Multi-Ingred Cream/Lotion/Oil/Oint 1 applic 04/26/21 11:16 Mineral Oil/Petrolatum, White Ophth Oint 3.5 Gm OU Q4HR PRN Dry Eye(s) Ondansetron HCl 4 mg 04/20/21 21:31 Ondansetron 4 Mg/2 Ml Inj IV Q8H PRN Nausea And Vomiting Senna/Docusate Sodium 1 tab 04/26/21 22:00 05/02/21 09:30 Sennosides/Docusate Sodium 8.6/50 Mg Tab FEEDTUBE 1 tab BID AZIZA Administration Simple Syrup 15 ml 04/25/21 14:13 Simple Syrup 15 Ml FEEDTUBE PRN PRN Hypoglycemia Simple Syrup 30 ml 04/25/21 14:13 Simple Syrup 15 Ml FEEDTUBE PRN PRN Hypoglycemia Sodium Bicarbonate 325 mg 04/25/21 14:13 04/27/21 13:00 Sodium Bicarbonate 325 Mg Tab FEEDTUBE 325 mg PRN PRN Administration For Clogged Feeding Tube Sodium Bicarbonate 1,300 mg 04/27/21 14:00 05/02/21 09:30 Sodium Bicarbonate 650 Mg Tab PO 1,300 mg TID AZIZA Administration Sodium Chloride 10 ml 04/20/21 22:00 05/02/21 09:30 Sodium Chloride 0.9% 10 Ml Flush Syringe IV 10 ml BID AZIZA Administration Sodium Chloride 10 ml 04/20/21 21:31 Sodium Chloride 0.9% 10 Ml Flush Syringe IV PRN PRN LINE FLUSH Nutrition/Malnutrition Assess - Dietary Evaluation Nutrition/Malnutrition Findings: Nutrition Notes Start: 04/21/21 12:15 Freq: Status: Active Protocol: Document 04/29/21 14:05 TAMMY (Rec: 04/29/21 14:17 [facility] [id number]) Nutrition Notes Initial or Follow up Reassessment Current Diagnosis Acute Kidney Injury, Respiratory Failure, Hyperlipidemia Other Pertinent Diagnosis Acute metabolic encephalopathy , Dehydration, Hyperosmolar non-ketotic state Current Diet TF-Nepro 27 ml/hr Labs/Tests BUN 63 Cr 3.4 BG 249 Elevated LFTs Pertinent Medications Levophed gtt, Senokot Height 5 ft 2 in Weight 72.4 kg [place] Body Weight (kg) 50.00 BMI 29.2 Weight Status Overweight Subjective/Other Information Pt received first HD on 04/27 and second HD yesterday. No HD needed today, per nephrology. HD needs to be assessed daily. Observed Nepro infusing at 45ml/hr at time of visit (12:29). RN informed of correct TF rate. Pt remains on vent support. Percent of energy/protein needs met: 140% energy 100% pro Burn Absent Trauma Absent #1 Nutrition Diagnosis Inadequate oral intake Diagnosis Progress(for reassessment Continues documentation) Is patient on ventilator? Yes Is Patient Ambulatory and/or Out of Bed No REE-([facility]-confined to bed) [phone] Calculation Used for Recommendations [facility] Additional Notes Pro needs >1.2g/kg: >87g/day Fluid needs 1-1.5L/day Nutrition Intervention Nutrition Support: Decrease current TF rate to 32ml/hr and provide 140ml water flush q4h. Kcal 1,382 Protein (gm) 62 Carbohydrates (gm) 124 Fat (gm) 74 Fluid (mL) 558 Fiber (gm) 10 Goal #1 TF tolerance Goal #2 TF to meet at least 75% energy and pro needs Follow-Up By: 05/04/21 Additional Comments F/U: stable TF, vent status, renal function <MARI CEBALLOS G - Last Filed: 05/02/21 17:30> Hospitalist Physical - Constitutional Vitals: Temp Pulse Resp BP Pulse Ox 97.9 F 99 H 22 99/60 99 05/02/21 15:05 05/02/21 15:37 05/02/21 15:05 05/02/21 15:37 05/02/21 15:37 HEART Score - HEART Score Troponin: Troponin T 0.021 ng/mL (0.00-0.029) 04/20/21 17:10 Results - Labs CBC & Chem 7: 05/02/21 04:00 05/02/21 04:00 Labs: Laboratory Last Values WBC 14.2 K/mm3 (4.5-11.0) H 05/02/21 04:00 RBC 2.61 M/mm3 (3.65-5.03) L 05/02/21 04:00 Hgb 6.9 gm/dl (10.1-14.3) L 05/02/21 04:00 Hct 22.1 % (30.3-42.9) L 05/02/21 04:00 MCV 85 fl (79-97) 05/02/21 04:00 MCH 27 pg (28-32) L 05/02/21 04:00 MCHC 31 % (30-34) 05/02/21 04:00 RDW 16.1 % (13.2-15.2) H 05/02/21 04:00 Plt Count 198 K/mm3 (140-440) 05/02/21 04:00 Add Manual Diff Complete 04/28/21 04:00 Total Counted 100 04/28/21 04:00 Seg Neutrophils % [employer] 04/28/21 04:00 Seg Neuts % (Manual) 77.0 % (40.0-70.0) H 04/26/21 09:33 Band Neutrophils % 2.0 % 04/28/21 04:00 Lymphocytes % (Manual) 1.0 % (13.4-35.0) L 04/28/21 04:00 Reactive Lymphs % (Man) 0 % 04/28/21 04:00 Monocytes % (Manual) 1.0 % (0.0-7.3) 04/28/21 04:00 Eosinophils % (Manual) 3.0 % (0.0-4.3) 04/28/21 04:00 Metamyelocytes % 1.0 % 04/28/21 04:00 Myelocytes % 0 % 04/28/21 04:00 Promyelocytes % 0 % 04/28/21 04:00 Blast Cells % 0 % 04/28/21 04:00 Nucleated RBC % 4.0 % (0.0-0.9) H 04/28/21 04:00 Seg Neutrophils # Man 11.6 K/mm3 (1.8-7.7) H 04/28/21 04:00 Band Neutrophils # 0.3 K/mm3 04/28/21 04:00 Lymphocytes # (Manual) 0.1 K/mm3 (1.2-5.4) L 04/28/21 04:00 Abs React Lymphs (Man) 0.0 K/mm3 04/28/21 04:00 Monocytes # (Manual) 0.1 K/mm3 (0.0-0.8) 04/28/21 04:00 Eosinophils # (Manual) 0.4 K/mm3 (0.0-0.4) 04/28/21 04:00 Basophils # (Manual) 0.0 K/mm3 (0.0-0.1) 04/28/21 04:00 Metamyelocytes # 0.1 K/mm3 04/28/21 04:00 Myelocytes # 0.0 K/mm3 04/28/21 04:00 Promyelocytes # 0.0 K/mm3 04/28/21 04:00 Blast Cells # 0.0 K/mm3 04/28/21 04:00 WBC Morphology Not Reportable 04/28/21 04:00 Hypersegmented Neuts Not Reportable 04/28/21 04:00 Hyposegmented Neuts Not Reportable 04/28/21 04:00 Hypogranular Neuts Not Reportable 04/28/21 04:00 Smudge Cells Not Reportable 04/28/21 04:00 Toxic Granulation Not Reportable 04/28/21 04:00 Toxic Vacuolation Not Reportable 04/28/21 04:00 Dohle Bodies Not Reportable 04/28/21 04:00 Pelger-Huet Anomaly Not Reportable 04/28/21 04:00 Moni Rods Not Reportable 04/28/21 04:00 Platelet Estimate Consistent w auto 04/28/21 04:00 Clumped Platelets Not Reportable 04/28/21 04:00 Plt Clumps, EDTA Not Reportable 04/28/21 04:00 Large Platelets Few 04/28/21 04:00 Giant Platelets Not Reportable 04/28/21 04:00 Platelet Satelliting Not Reportable 04/28/21 04:00 Plt Morphology Comment Not Reportable 04/28/21 04:00 RBC Morphology Not Reportable 04/28/21 04:00 Dimorphic RBCs Not Reportable 04/28/21 04:00 Polychromasia Not Reportable 04/28/21 04:00 Hypochromasia Not Reportable 04/28/21 04:00 Poikilocytosis Not Reportable 04/28/21 04:00 Anisocytosis Not Reportable 04/28/21 04:00 Microcytosis Not Reportable 04/28/21 04:00 Macrocytosis Not Reportable 04/28/21 04:00 Spherocytes Not Reportable 04/28/21 04:00 Pappenheimer Bodies Not Reportable 04/28/21 04:00 Sickle Cells Not Reportable 04/28/21 04:00 Target Cells 1+ 04/28/21 04:00 Tear Drop Cells Not Reportable 04/28/21 04:00 Ovalocytes Not Reportable 04/28/21 04:00 Helmet Cells Not Reportable 04/28/21 04:00 Parkinson-Mickleton Bodies Not Reportable 04/28/21 04:00 Snyder Rings Not Reportable 04/28/21 04:00 Salvador Cells Not Reportable 04/28/21 04:00 Bite Cells Not Reportable 04/28/21 04:00 Crenated Cell Not Reportable 04/28/21 04:00 Elliptocytes Not Reportable 04/28/21 04:00 Acanthocytes (Spur) Not Reportable 04/28/21 04:00 Rouleaux Not Reportable 04/28/21 04:00 Hemoglobin C Crystals Not Reportable 04/28/21 04:00 Schistocytes Not Reportable 04/28/21 04:00 Malaria parasites Not Reportable 04/28/21 04:00 Herrera Bodies Not Reportable 04/28/21 04:00 Hem Pathologist Commnt No 04/28/21 04:00 PT 15.3 Sec. (12.2-14.9) H 04/28/21 05:00 INR 1.09 (0.87-1.13) 04/28/21 05:00 APTT 36.6 Sec. (24.2-36.6) 04/28/21 05:00 Heparin Anti-Xa, Unfract Negative (Negative) 04/24/21 17:29 ABG pH 7.487 (7.320-7.450) H 05/02/21 04:34 POC ABG pCO2 35.3 mmHg (32.0-48.0) 05/02/21 04:34 ABG pCO2 31.6 mm Hg 04/21/21 15:47 POC ABG pO2 78.6 mmHg (83-108) L 05/02/21 04:34 ABG pO2 168.1 mm Hg (80.0-90.0) H 04/21/21 15:47 POC ABG HCO3 26.1 05/02/21 04:34 ABG HCO3 23.3 mmol/L (20.0-26.0) 04/21/21 15:47 ABG O2 Saturation 96.0 (0-100) 05/02/21 04:34 ABG O2 Content 12.7 (0.0-44) 04/21/21 15:47 POC ABG Base Excess 2.9 05/02/21 04:34 ABG Base Excess 0.3 mmol/L (-2.0-3.0) 04/21/21 15:47 ABG Hemoglobin 11.5 (12.0-17.5) L 05/02/21 04:34 ABG Oxyhemoglobin 95.1 (94-98) 05/02/21 04:34 ABG Carboxyhemoglobin 1.0 % (0.0-5.0) 04/21/21 15:47 ABG Methemoglobin 0.3 (0.0-1.5) 05/02/21 04:34 ABG Sodium 138.6 mmol/L (136.0-145.0) 05/02/21 04:34 ABG Potassium 3.4 mmol/L (3.40-4.50) 05/02/21 04:34 ABG Chloride 105.0 mmol/L (98-107) 05/02/21 04:34 ABG Glucose 122 mg/dL (65-95) H 05/02/21 04:34 VBG pH 7.397 (7.320-7.420) 04/20/21 17:10 Oxyhemoglobin 97.5 % (95.0-99.0) 04/21/21 15:47 Carboxyhemoglobin 0.6 (0.5-1.5) 05/02/21 04:34 FiO2 100 % 04/21/21 15:47 FiO2 % 40.0 05/02/21 04:34 Sodium 145 mmol/L (137-145) 05/02/21 04:00 Potassium 3.8 mmol/L (3.6-5.0) 05/02/21 04:00 Chloride 107.0 mmol/L (98-107) 05/02/21 04:00 Carbon Dioxide 26 mmol/L (22-30) 05/02/21 04:00 Anion Gap 16 mmol/L 05/02/21 04:00 BUN 49 mg/dL (7-17) H 05/02/21 04:00 Creatinine 2.8 mg/dL (0.6-1.2) H 05/02/21 04:00 Estimated GFR 20 ml/min 05/02/21 04:00 BUN/Creatinine Ratio 18 % 05/02/21 04:00 Glucose 117 mg/dL (65-100) H 05/02/21 04:00 POC Glucose 115 mg/dL (70-105) H 05/02/21 12:04 Hemoglobin A1c 17.1 % (4-6) H 04/22/21 15:55 Lactic Acid 1.90 mmol/L (0.7-2.0) 04/20/21 19:56 Calcium 8.8 mg/dL (8.4-10.2) 05/02/21 04:00 Phosphorus 3.80 mg/dL (2.5-4.5) 05/02/21 04:00 Magnesium 1.80 mg/dL (1.7-2.3) 05/02/21 04:00 Iron 62 ug/dL (37-170) 04/24/21 17:29 TIBC 285 mcg/dL (250-450) 04/24/21 17:29 % Saturation 21.75 % 04/24/21 17:29 Transferrin 112 mg/dl (192-382) L 04/24/21 17:29 Total Bilirubin 0.30 mg/dL (0.1-1.2) 04/29/21 04:00 Direct Bilirubin < 0.2 mg/dL (0-0.2) 04/29/21 04:00 Indirect Bilirubin 0.1 mg/dL 04/29/21 04:00 AST 61 units/L (5-40) H 04/29/21 04:00 ALT 71 units/L (7-56) H 04/29/21 04:00 Alkaline Phosphatase 170 units/L (35-129) H 04/29/21 04:00 Ammonia 29.0 umol/L (25-60) 04/20/21 17:10 Total Creatine Kinase 1000 units/L (30-135) H 04/27/21 07:43 CK-MB (CK-2) 36.0 ng/mL (0.0-4.0) H 04/20/21 17:10 CK-MB (CK-2) Rel Index 0.9 (0-4) 04/20/21 17:10 Troponin T 0.021 ng/mL (0.00-0.029) 04/20/21 17:10 Serum Total Protein 5.5 g/dL (6.1-8.1) L 04/22/21 08:59 Total Protein 5.1 g/dL (6.3-8.2) L 04/29/21 04:00 Albumin 1.6 g/dL (3.9-5) L 04/29/21 04:00 Albumin/Globulin Ratio 0.5 % 04/29/21 04:00 Ivelf-8-Dmfrqrtty 0.6 g/dL (0.2-0.3) H 04/22/21 08:59 Agvwh-3-Bqbnehvvx 1.0 g/dL (0.5-0.9) H 04/22/21 08:59 Beta Globulins 0.3 g/dL (0.2-0.5) 04/22/21 08:59 Gamma Globulins 0.6 g/dL (0.8-1.7) L 04/22/21 08:59 Abnorm Protein Band 1 see below 04/22/21 08:59 PEP Interpretation see below H 04/22/21 08:59 TSH 6.040 mlU/mL (0.270-4.200) H 04/20/21 17:10 Free T4 0.93 ng/dL (0.76-1.46) 04/20/21 17:10 Arterial Blood Glucose 122 mg/dL (65-95) H 05/02/21 04:34 Arterial Blood Ionized Calcium 4.5 mg/dL (4.6-5.3) L 04/28/21 05:18 Urine Color Yellow (Yellow) 04/29/21 13:30 Urine Turbidity Turbid (Clear) 04/29/21 13:30 Urine pH 5.0 (5.0-7.0) 04/29/21 13:30 Ur Specific [place] 1.010 (1.003-1.030) 04/29/21 13:30 Urine Protein 100 mg/dl mg/dL (Negative) 04/29/21 13:30 Urine Glucose (UA) 150 mg/dL (Negative) 04/29/21 13:30 Urine Ketones Neg mg/dL (Negative) 04/29/21 13:30 Urine Blood Lg (Negative) 04/29/21 13:30 Urine Nitrite Neg (Negative) 04/29/21 13:30 Urine Bilirubin Neg (Negative) 04/29/21 13:30 Urine Urobilinogen < 2.0 mg/dL (<2.0) 04/29/21 13:30 Ur Leukocyte Esterase Lg (Negative) 04/29/21 13:30 Urine WBC (Auto) > 182.0 /HPF (0.0-6.0) H 04/29/21 13:30 Urine RBC (Auto) > 182.0 /HPF (0.0-6.0) 04/29/21 13:30 U Epithel Cells (Auto) 4.0 /HPF (0-13.0) 04/29/21 13:30 Urine WBC Clumps 3+ /HPF 04/29/21 13:30 Urine Mucus Few /HPF 04/29/21 13:30 Urine Yeast (Budding) 3+ /HPF 04/29/21 13:30 Urine Osmolality 446 Mosm/kg 04/21/21 08:01 Urine Creatinine 44.3 mg/dL (0.1-20.0) H 04/21/21 08:01 Urine Sodium 71 mmol/L 04/21/21 08:01 Urine Total Protein 12 mg/dL (5-11.8) H 04/21/21 08:01 CSF Appearance Clear 04/29/21 11:45 CSF Color Colorless 04/29/21 11:45 CSF WBC 14 /mm3 (1-10) 04/29/21 11:45 CSF RBC 324 /mm3 (0-0) 04/29/21 11:45 CSF Seg Neutrophils 50.0 % (0-6) 04/29/21 11:45 CSF Lymphocytes % 40.0 % (40-80) 04/29/21 11:45 CSF Reactive Lymphs Not Reportable 04/29/21 11:45 CSF Monocytes % 10.0 % (15-45) 04/29/21 11:45 CSF Eosinophils % Not Reportable 04/29/21 11:45 CSF Basophils Not Reportable 04/29/21 11:45 CSF Pathologist Review C 04/29/21 11:45 CSF Glucose 161 mg/dL 04/29/21 11:45 CSF Total Protein 51 mg/dL 04/29/21 11:45 Plasma/Serum Alcohol < 0.01 % (0-0.07) 04/20/21 17:10 Heparin-induced Plt Ab Negative (Negative) 04/24/21 17:29 UF Heparin High Dose 1 % Release 04/24/21 17:29 EFE UFH Low Dose 0.1 0 % Release 04/24/21 17:29 EFE UFH Low Dose 0.5 0 % Release 04/24/21 17:29 Coronavirus (PCR) Negative (Negative) 04/21/21 Unknown Hepatitis A IgM Ab Non-reactive (NonReactive) 04/27/21 12:49 Hep Bs Antigen Nonreactive (Negative) 04/27/21 12:49 Hep B Core IgM Ab Non-reactive (NonReactive) 04/27/21 12:49 Hepatitis C Antibody Non-reactive (NonReactive) 04/27/21 12:49 Blood Type O POSITIVE 05/02/21 12:00 Antibody Screen Negative 05/02/21 12:00 Crossmatch See Detail 05/02/21 12:00 Microbiology: Microbiology 04/29/21 13:15 Peripheral/Venous Blood Culture - Preliminary NO GROWTH AFTER 72 HOURS 04/29/21 11:56 Tracheal Aspirate Sputum Culture - Final Luther/IV: Voiding Method Indwelling Catheter Active Medications - Current Medications Current Medications: Generic Name Dose Route Start Last Admin Trade Name Freq PRN Reason Stop Dose Admin Acetaminophen 650 mg 04/20/21 21:31 05/01/21 18:15 Acetaminophen 325 Mg Tab PO 650 mg Q4H PRN Administration Pain MILD(1-3)/Fever >100.5/TURCIOS Albuterol 2.5 mg 04/22/21 14:49 04/23/21 15:18 Albuterol 2.5 Mg/3 Ml Nebu IH 2.5 mg Q4HRT PRN Administration Shortness Of Breath Lipase/Protease/Amylase 1 each 04/25/21 14:13 Lipase 10,500/Protease 25,000/Amylase 43,750 (Units) Dr Vasquez FEEDTUBE PRN PRN For Clogged Feeding Tube Dextrose 50 ml 04/24/21 11:36 Dextrose 50% In Water (25gm) 50 Ml Syringe IV Q30MIN PRN Hypoglycemia Protocol Famotidine 10 mg 04/27/21 10:00 05/02/21 09:30 Famotidine 10 Mg Tab FEEDTUBE 10 mg BID AZIZA Administration Hydralazine HCl 10 mg 04/24/21 21:22 Hydralazine 20 Mg/1 Ml Inj IV Q4HR PRN elevated BP Hydrophilic Ointment 1 applic 04/26/21 11:16 Lip Therapy Vaseline TP Q2HR PRN Dry Lips NORepinephrine/NS 8 MG-250 ML 8 mg in 250 mls @ 3.75 mls/hr 04/26/21 16:00 05/02/21 15:27 Norepinephrine/Ns 8 Mg-250 Ml (Double Conc) IV 2 mcg/min TITRATE AZIZA 3.75 mls/hr Administration Protocol 2 MCG/MIN Sodium Chloride 100 mls @ 999 mls/hr 05/01/21 12:44 Nacl 0.9% IV MITCH PRN Hypotension MEROPENEM/NS 1 GRAM/100 ML 1 gram in 100 mls @ 100 mls/hr 05/03/21 15:00 Merrem/Ns 1 Gram/100 Ml IV 1500 [facility] Protocol Insulin Human Lispro 0 unit 04/25/21 18:00 05/02/21 12:16 Insulin Lispro 100 Unit/Ml SUB-Q Not Given Q6HR [facility] Protocol Insulin Human NPH 40 unit 04/30/21 10:00 05/02/21 09:30 Insulin Nph, Human 100 Unit/1 Ml SUB-Q 40 unit Q12HR AZIZA Administration Levothyroxine Sodium 50 mcg 05/03/21 06:00 Levothyroxine 50 Mcg Tab PO DAILY@0600 [facility] Lorazepam 1 mg 04/26/21 11:15 04/30/21 23:00 Lorazepam 2 Mg/Ml Vial IV 1 mg Q4H PRN Administration Sedation Metoclopramide HCl 5 mg 04/20/21 21:31 Metoclopramide 10 Mg/2 Ml Inj IV Q6H PRN Nausea And Vomiting Multi-Ingred Cream/Lotion/Oil/Oint 1 applic 04/26/21 11:16 Mineral Oil/Petrolatum, White Ophth Oint 3.5 Gm OU Q4HR PRN Dry Eye(s) Ondansetron HCl 4 mg 04/20/21 21:31 Ondansetron 4 Mg/2 Ml Inj IV Q8H PRN Nausea And Vomiting Senna/Docusate Sodium 1 tab 04/26/21 22:00 05/02/21 09:30 Sennosides/Docusate Sodium 8.6/50 Mg Tab FEEDTUBE 1 tab BID AZIZA Administration Simple Syrup 15 ml 04/25/21 14:13 Simple Syrup 15 Ml FEEDTUBE PRN PRN Hypoglycemia Simple Syrup 30 ml 04/25/21 14:13 Simple Syrup 15 Ml FEEDTUBE PRN PRN Hypoglycemia Sodium Bicarbonate 325 mg 04/25/21 14:13 04/27/21 13:00 Sodium Bicarbonate 325 Mg Tab FEEDTUBE 325 mg PRN PRN Administration For Clogged Feeding Tube Sodium Bicarbonate 1,300 mg 04/27/21 14:00 05/02/21 15:24 Sodium Bicarbonate 650 Mg Tab PO 1,300 mg TID AZIZA Administration Sodium Chloride 10 ml 04/20/21 22:00 05/02/21 09:30 Sodium Chloride 0.9% 10 Ml Flush Syringe IV 10 ml BID AZIZA Administration Sodium Chloride 10 ml 04/20/21 21:31 Sodium Chloride 0.9% 10 Ml Flush Syringe IV PRN PRN LINE FLUSH Nutrition/Malnutrition Assess - Dietary Evaluation Nutrition/Malnutrition Findings: Nutrition Notes Start: 04/21/21 12:15 Freq: Status: Active Protocol: Document 04/29/21 14:05 TAMMY (Rec: 04/29/21 14:17 TAMMY [id number]) Nutrition Notes Initial or Follow up Reassessment Current Diagnosis Acute Kidney Injury, Respiratory Failure, Hyperlipidemia Other Pertinent Diagnosis Acute metabolic encephalopathy , Dehydration, Hyperosmolar non-ketotic state Current Diet TF-Nepro 27 ml/hr Labs/Tests BUN 63 Cr 3.4 BG 249 Elevated LFTs Pertinent Medications Levophed gtt, Senokot Height 5 ft 2 in Weight 72.4 kg [place] Body Weight (kg) 50.00 BMI 29.2 Weight Status Overweight Subjective/Other Information Pt received first HD on 04/27 and second HD yesterday. No HD needed today, per nephrology. HD needs to be assessed daily. Observed Nepro infusing at 45ml/hr at time of visit (12:29). RN informed of correct TF rate. Pt remains on vent support. Percent of energy/protein needs met: 140% energy 100% pro Burn Absent Trauma Absent #1 Nutrition Diagnosis Inadequate oral intake Diagnosis Progress(for reassessment Continues documentation) Is patient on ventilator? Yes Is Patient Ambulatory and/or Out of Bed No REE-([facility]-confined to bed) [phone] Calculation Used for Recommendations [facility] Additional Notes Pro needs >1.2g/kg: >87g/day Fluid needs 1-1.5L/day Nutrition Intervention Nutrition Support: Decrease current TF rate to 32ml/hr and provide 140ml water flush q4h. Kcal 1,382 Protein (gm) 62 Carbohydrates (gm) 124 Fat (gm) 74 Fluid (mL) 558 Fiber (gm) 10 Goal #1 TF tolerance Goal #2 TF to meet at least 75% energy and pro needs Follow-Up By: 05/04/21 Additional Comments F/U: stable TF, vent status, renal function
[2021-05-02] MEDS: NORepinephrine/NS 8 MG-250 ML 8 MG/250 ML INFUS..BTL IV SCH (15:27)
--- NOTE | 2021-05-02 19:18 | Magnetic Resonance Report ---
MRI BRAIN 05/02/2021 INDICATION / CLINICAL INFORMATION: persistent ams. TECHNIQUE: Multiplanar, multisequence MR images of the brain were obtained. COMPARISON: None available. FINDINGS: BRAIN / INTRACRANIAL CONTENTS: Unenhanced MR images of the brain demonstrate extensive abnormal areas of diffusion signal abnormality throughout the cerebral hemispheres and cerebellar hemispheres. Ther e is abnormal diffusion signal present in the following locations: Bilateral cerebellar hemispheres, left temporal lobe, left occipital lobe, bilateral basal ganglia, right frontal lobe, bilateral parie kitty lobes, left greater than right, parasagittal left frontal and parietal cortex. These extensive ar eas of increased diffusion weighted signal are largely associated with decreased ADC signal, although to varying degrees. The overall appearance suggests diffuse distribution of ischemic injury, involvi ng several vascular distributions, including some of which appear to be both embolic cortical territo pam as well as border zone distribution (particularly on the left side. There is some subtle evidence of petechial change seen in many of these areas of ischemic change on t he noncontrast T1-weighted images, suggesting that these lesions are present but subacute to varying degrees. As seen on CT, fairly prominent ventriculomegaly is noted. There are no abnormal extra-axial fluid collections. EXTRACRANIAL: Unremarkable CRANIOCERVICAL JUNCTION: No significant abnormality. VASCULAR FLOW-VOIDS: No significant abnormality. IMPRESSION: Extensive widely distributed areas of recent ischemic injury as described above. Signer Name: Antwon Chopra MD Signed: 05/02/2021 7:13 PM Workstation Name: [id number]
[2021-05-03] MEDS: INSULIN LISPRO 100 UNIT/ML SUB-Q SCH ×4 (00:06→18:00)
--- NOTE | 2021-05-03 05:07 | XRay Report ---
CHEST - 1 VIEW INDICATION: follow up respiratory failure COMPARISON: Yesterday FINDINGS: SUPPORT DEVICES: Stable support device positioning. HEART: Stable cardiomediastinal silhouette. LUNGS/PLEURA: Moderate patchy multifocal airspace disease. ADDITIONAL FINDINGS: None. IMPRESSION: Unchanged exam. Signer Name: Jin Harris MD Signed: 05/03/2021 5:03 AM Workstation Name: [id number]
[2021-05-03] MEDS: LEVOTHYROXINE 50 MCG TAB PO SCH (05:34)
[2021-05-03 06:30] LABS: Hematocrit 27.4 % (30.3-42.9); Hemoglobin 8.7 gm/dl (10.1-14.3); Mean Corpuscular HGB Conc 32 % (30-34); Mean Corpuscular Volume 85 fl (79-97); Platelet Count 203 K/mm3 (140-440); Red Blood Count 3.22 M/mm3 (3.65-5.03); Red Cell Distribution Width 15.8 % (13.2-15.2)
--- NOTE | 2021-05-03 06:52 | Progress Note ---
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 Recommend Neurology eval for stroke work up, consider MRA head and neck. At this writing, there is no role for surgical intervention. Please notify if questions/concerns. Objective - Vital Sign Vital Signs - 12hr 05/02/21 05/02/21 05/02/21 19:00 19:15 19:30 Temperature Pulse Rate 99 H 101 H 98 H Pulse Rate [ From Monitor] Respiratory 19 16 23 Rate Blood Pressure 130/57 123/50 117/54 O2 Sat by Pulse 99 99 99 Oximetry 05/02/21 05/02/21 05/02/21 19:45 19:53 20:00 Temperature 98.9 F Pulse Rate 98 H 99 H Pulse Rate [ 97 H From Monitor] Respiratory 19 20 Rate Blood Pressure 115/44 110/47 O2 Sat by Pulse 99 99 Oximetry 05/02/21 05/02/21 05/02/21 20:30 20:52 21:00 Temperature Pulse Rate 98 H 104 H 97 H Pulse Rate [ From Monitor] Respiratory 17 23 Rate Blood Pressure 100/40 102/47 101/42 O2 Sat by Pulse 100 95 97 Oximetry 05/02/21 05/02/21 05/02/21 21:30 22:00 22:01 Temperature Pulse Rate 103 H 102 H 102 H Pulse Rate [ From Monitor] Respiratory 21 19 21 Rate Blood Pressure 105/51 118/52 118/52 O2 Sat by Pulse 97 97 98 Oximetry 05/02/21 05/02/21 05/02/21 22:31 23:00 23:30 Temperature Pulse Rate 107 H 91 H 98 H Pulse Rate [ From Monitor] Respiratory 18 16 18 Rate Blood Pressure 97/45 98/41 110/51 O2 Sat by Pulse 98 98 Oximetry 05/02/21 05/03/21 05/03/21 23:48 00:00 00:30 Temperature 99.3 F Pulse Rate 91 H 86 Pulse Rate [ 88 From Monitor] Respiratory 17 19 Rate Blood Pressure 96/48 84/40 O2 Sat by Pulse 99 98 Oximetry 05/03/21 05/03/21 05/03/21 01:00 01:30 02:00 Temperature Pulse Rate 90 85 88 Pulse Rate [ From Monitor] Respiratory 17 16 16 Rate Blood Pressure 86/42 101/46 102/48 O2 Sat by Pulse 98 98 99 Oximetry 05/03/21 05/03/21 05/03/21 02:31 02:57 03:00 Temperature Pulse Rate 94 H 92 H 94 H Pulse Rate [ From Monitor] Respiratory 24 26 H Rate Blood Pressure 113/56 103/51 103/51 O2 Sat by Pulse 98 100 98 Oximetry 05/03/21 05/03/21 05/03/21 03:30 03:39 04:00 Temperature 97.5 F L Pulse Rate 93 H 91 H 98 H Pulse Rate [ 93 H From Monitor] Respiratory 21 15 22 Rate Blood Pressure 108/47 112/49 O2 Sat by Pulse 95 100 97 Oximetry 05/03/21 05/03/21 05/03/21 04:30 05:00 05:30 Temperature Pulse Rate 90 96 H 90 Pulse Rate [ From Monitor] Respiratory 17 20 25 H Rate Blood Pressure 100/45 115/49 104/44 O2 Sat by Pulse 97 98 97 Oximetry 05/03/21 06:00 Temperature Pulse Rate 94 H Pulse Rate [ From Monitor] Respiratory 18 Rate Blood Pressure 107/45 O2 Sat by Pulse 96 Oximetry - Laboratory Findings CBC and BMP: 05/03/21 04:00 05/02/21 04:00 Abnormal Lab Findings: Abnormal Labs 04/20/21 04/20/21 04/20/21 17:10 17:10 17:10 WBC 17.4 H RBC 5.19 H Hgb Hct 46.8 H MCH 27 L RDW 17.2 H Plt Count Seg Neuts % (Manual) 98.0 H Lymphocytes % (Manual) 2.0 L Nucleated RBC % 1.0 H Seg Neutrophils # Man 17.1 H Lymphocytes # (Manual) 0.3 L PT ABG pH POC ABG pCO2 POC ABG pO2 ABG pO2 ABG O2 Saturation ABG Base Excess ABG Hemoglobin ABG Oxyhemoglobin ABG Potassium ABG Chloride ABG Glucose Oxyhemoglobin Carboxyhemoglobin Sodium 173 H* Potassium Chloride 132.9 H Carbon Dioxide 17 L BUN 120 H Creatinine 4.2 H Glucose 762 H* POC Glucose Hemoglobin A1c Lactic Acid Calcium Phosphorus Magnesium 3.80 H Transferrin AST 72 H ALT 63 H Alkaline Phosphatase 148 H Total Creatine Kinase 3697 H CK-MB (CK-2) 36.0 H Serum Total Protein Total Protein Albumin 2.2 L Msvrv-6-Enzmrnfzm Xfzwq-7-Ekjygjpxk Gamma Globulins PEP Interpretation TSH Arterial Blood Glucose Arterial Blood Ionized Calcium Urine WBC (Auto) Urine Creatinine Urine Total Protein Crossmatch 04/20/21 04/20/21 04/20/21 17:10 17:10 18:55 WBC RBC Hgb Hct MCH RDW Plt Count Seg Neuts % (Manual) Lymphocytes % (Manual) Nucleated RBC % Seg Neutrophils # Man Lymphocytes # (Manual) PT ABG pH POC ABG pCO2 POC ABG pO2 ABG pO2 ABG O2 Saturation ABG Base Excess ABG Hemoglobin ABG Oxyhemoglobin ABG Potassium ABG Chloride ABG Glucose Oxyhemoglobin Carboxyhemoglobin Sodium Potassium Chloride Carbon Dioxide BUN Creatinine Glucose POC Glucose 574 H Hemoglobin A1c Lactic Acid 2.60 H* Calcium Phosphorus Magnesium Transferrin AST ALT Alkaline Phosphatase Total Creatine Kinase CK-MB (CK-2) Serum Total Protein Total Protein Albumin Jwjab-5-Kqtqmukxx Svmua-6-Dzjbgecio Gamma Globulins PEP Interpretation TSH 6.040 H Arterial Blood Glucose Arterial Blood Ionized Calcium Urine WBC (Auto) Urine Creatinine Urine Total Protein Crossmatch 04/20/21 04/20/21 04/21/21 22:58 22:58 00:14 WBC RBC Hgb Hct MCH RDW Plt Count Seg Neuts % (Manual) Lymphocytes % (Manual) Nucleated RBC % Seg Neutrophils # Man Lymphocytes # (Manual) PT ABG pH POC ABG pCO2 POC ABG pO2 ABG pO2 ABG O2 Saturation ABG Base Excess ABG Hemoglobin ABG Oxyhemoglobin ABG Potassium ABG Chloride ABG Glucose Oxyhemoglobin Carboxyhemoglobin Sodium 172 H* Potassium 3.2 L Chloride 134.2 H Carbon Dioxide 17 L BUN 112 H Creatinine 3.8 H Glucose 803 H* POC Glucose > 600 H Hemoglobin A1c Lactic Acid Calcium 8.3 L Phosphorus Magnesium 3.50 H Transferrin AST ALT Alkaline Phosphatase Total Creatine Kinase CK-MB (CK-2) Serum Total Protein Total Protein Albumin Lblcv-9-Ojhjqeohs Zcgnu-8-Eyfqyzaet Gamma Globulins PEP Interpretation TSH Arterial Blood Glucose Arterial Blood Ionized Calcium Urine WBC (Auto) Urine Creatinine Urine Total Protein Crossmatch 04/21/21 04/21/21 04/21/21 00:22 02:01 03:11 WBC RBC Hgb Hct MCH RDW Plt Count Seg Neuts % (Manual) Lymphocytes % (Manual) Nucleated RBC % Seg Neutrophils # Man Lymphocytes # (Manual) PT ABG pH POC ABG pCO2 POC ABG pO2 ABG pO2 ABG O2 Saturation ABG Base Excess ABG Hemoglobin ABG Oxyhemoglobin ABG Potassium ABG Chloride ABG Glucose Oxyhemoglobin Carboxyhemoglobin Sodium 176 H* 175 H* Potassium 2.9 L* 3.0 L Chloride 139.9 H 136.2 H Carbon Dioxide 17 L 19 L BUN 113 H 112 H Creatinine 3.9 H 3.6 H Glucose 729 H* 582 H* POC Glucose 404 H Hemoglobin A1c Lactic Acid Calcium Phosphorus Magnesium Transferrin AST ALT Alkaline Phosphatase Total Creatine Kinase CK-MB (CK-2) Serum Total Protein Total Protein Albumin Jyhko-7-Giryhyqbb Farsg-7-Kajhdmftf Gamma Globulins PEP Interpretation TSH Arterial Blood Glucose Arterial Blood Ionized Calcium Urine WBC (Auto) Urine Creatinine Urine Total Protein Crossmatch 04/21/21 04/21/21 04/21/21 03:20 03:41 03:41 WBC 14.1 H RBC Hgb Hct MCH 27 L RDW 16.8 H Plt Count 114 L Seg Neuts % (Manual) 97.0 H Lymphocytes % (Manual) 3.0 L Nucleated RBC % 1.0 H Seg Neutrophils # Man 13.7 H Lymphocytes # (Manual) 0.4 L PT ABG pH POC ABG pCO2 POC ABG pO2 ABG pO2 52.3 L ABG O2 Saturation 84.5 L ABG Base Excess -2.9 L ABG Hemoglobin ABG Oxyhemoglobin ABG Potassium ABG Chloride ABG Glucose Oxyhemoglobin 82.9 L Carboxyhemoglobin Sodium 179 H* Potassium 2.9 L* Chloride 138.2 H Carbon Dioxide 20 L BUN 111 H Creatinine 3.7 H Glucose 465 H POC Glucose Hemoglobin A1c Lactic Acid Calcium Phosphorus Magnesium Transferrin AST 73 H ALT 61 H Alkaline Phosphatase 144 H Total Creatine Kinase CK-MB (CK-2) Serum Total Protein Total Protein Albumin 2.5 L Zecmi-8-Obrvijpcm Vyrqe-9-Ijoyjkikd Gamma Globulins PEP Interpretation TSH Arterial Blood Glucose Arterial Blood Ionized Calcium Urine WBC (Auto) Urine Creatinine Urine Total Protein Crossmatch 04/21/21 04/21/21 04/21/21 04:24 05:45 06:47 WBC RBC Hgb Hct MCH RDW Plt Count Seg Neuts % (Manual) Lymphocytes % (Manual) Nucleated RBC % Seg Neutrophils # Man Lymphocytes # (Manual) PT ABG pH POC ABG pCO2 POC ABG pO2 ABG pO2 ABG O2 Saturation ABG Base Excess ABG Hemoglobin ABG Oxyhemoglobin ABG Potassium ABG Chloride ABG Glucose Oxyhemoglobin Carboxyhemoglobin Sodium Potassium Chloride Carbon Dioxide BUN Creatinine Glucose POC Glucose 353 H 280 H 260 H Hemoglobin A1c Lactic Acid Calcium Phosphorus Magnesium Transferrin AST ALT Alkaline Phosphatase Total Creatine Kinase CK-MB (CK-2) Serum Total Protein Total Protein Albumin Vyrfy-0-Ykijnmcnr Nookv-0-Jkbbsfhwf Gamma Globulins PEP Interpretation TSH Arterial Blood Glucose Arterial Blood Ionized Calcium Urine WBC (Auto) Urine Creatinine Urine Total Protein Crossmatch 04/21/21 04/21/21 04/21/21 08:01 11:11 12:51 WBC RBC Hgb Hct MCH RDW Plt Count Seg Neuts % (Manual) Lymphocytes % (Manual) Nucleated RBC % Seg Neutrophils # Man Lymphocytes # (Manual) PT ABG pH POC ABG pCO2 POC ABG pO2 ABG pO2 ABG O2 Saturation ABG Base Excess ABG Hemoglobin ABG Oxyhemoglobin ABG Potassium ABG Chloride ABG Glucose Oxyhemoglobin Carboxyhemoglobin Sodium Potassium Chloride Carbon Dioxide BUN Creatinine Glucose POC Glucose 68 L 146 H Hemoglobin A1c Lactic Acid Calcium Phosphorus Magnesium Transferrin AST ALT Alkaline Phosphatase Total Creatine Kinase CK-MB (CK-2) Serum Total Protein Total Protein Albumin Gzhhk-4-Ckgjuzkri Qkoll-5-Stwxsnxgk Gamma Globulins PEP Interpretation TSH Arterial Blood Glucose Arterial Blood Ionized Calcium Urine WBC (Auto) Urine Creatinine 44.3 H Urine Total Protein 12 H Crossmatch 04/21/21 04/21/21 04/21/21 13:41 14:40 15:47 WBC RBC Hgb Hct MCH RDW Plt Count Seg Neuts % (Manual) Lymphocytes % (Manual) Nucleated RBC % Seg Neutrophils # Man Lymphocytes # (Manual) PT ABG pH 7.275 L 7.486 H POC ABG pCO2 POC ABG pO2 63.4 L ABG pO2 168.1 H ABG O2 Saturation 99.1 H ABG Base Excess ABG Hemoglobin 8.4 L 8.9 L ABG Oxyhemoglobin 89.5 L ABG Potassium ABG Chloride 108.0 H ABG Glucose 404 H Oxyhemoglobin Carboxyhemoglobin Sodium Potassium Chloride Carbon Dioxide BUN Creatinine Glucose POC Glucose 186 H Hemoglobin A1c Lactic Acid Calcium Phosphorus Magnesium Transferrin AST ALT Alkaline Phosphatase Total Creatine Kinase CK-MB (CK-2) Serum Total Protein Total Protein Albumin Axajj-9-Dfrlvskou Qdbqn-3-Dgmzilsgf Gamma Globulins PEP Interpretation TSH Arterial Blood Glucose 404 H Arterial Blood Ionized Calcium Urine WBC (Auto) Urine Creatinine Urine Total Protein Crossmatch 04/21/21 04/21/21 04/21/21 16:25 17:57 18:49 WBC RBC Hgb Hct MCH RDW Plt Count Seg Neuts % (Manual) Lymphocytes % (Manual) Nucleated RBC % Seg Neutrophils # Man Lymphocytes # (Manual) PT ABG pH POC ABG pCO2 POC ABG pO2 ABG pO2 ABG O2 Saturation ABG Base Excess ABG Hemoglobin ABG Oxyhemoglobin ABG Potassium ABG Chloride ABG Glucose Oxyhemoglobin Carboxyhemoglobin Sodium 174 H* Potassium 7.2 H* D Chloride 138.2 H Carbon Dioxide 21 L BUN 99 H Creatinine 4.0 H Glucose 157 H POC Glucose 172 H 143 H Hemoglobin A1c Lactic Acid Calcium Phosphorus Magnesium Transferrin AST 134 H ALT 71 H Alkaline Phosphatase 135 H Total Creatine Kinase 3504 H CK-MB (CK-2) Serum Total Protein Total Protein Albumin 2.2 L Jcaat-9-Ldeseykyz Avlxa-0-Liophvdba Gamma Globulins PEP Interpretation TSH Arterial Blood Glucose Arterial Blood Ionized Calcium Urine WBC (Auto) Urine Creatinine Urine Total Protein Crossmatch 04/21/21 04/21/21 04/21/21 19:10 20:26 20:53 WBC RBC Hgb Hct MCH RDW Plt Count Seg Neuts % (Manual) Lymphocytes % (Manual) Nucleated RBC % Seg Neutrophils # Man Lymphocytes # (Manual) PT ABG pH POC ABG pCO2 POC ABG pO2 ABG pO2 ABG O2 Saturation ABG Base Excess ABG Hemoglobin ABG Oxyhemoglobin ABG Potassium ABG Chloride ABG Glucose Oxyhemoglobin Carboxyhemoglobin Sodium Potassium Chloride Carbon Dioxide BUN Creatinine Glucose POC Glucose 126 H 190 H 116 H Hemoglobin A1c Lactic Acid Calcium Phosphorus Magnesium Transferrin AST ALT Alkaline Phosphatase Total Creatine Kinase CK-MB (CK-2) Serum Total Protein Total Protein Albumin Bnvlz-8-Djwclwwts Rejxf-2-Daiyhphpg Gamma Globulins PEP Interpretation TSH Arterial Blood Glucose Arterial Blood Ionized Calcium Urine WBC (Auto) Urine Creatinine Urine Total Protein Crossmatch 04/21/21 04/21/21 04/21/21 21:52 22:55 23:00 WBC RBC Hgb Hct MCH RDW Plt Count Seg Neuts % (Manual) Lymphocytes % (Manual) Nucleated RBC % Seg Neutrophils # Man Lymphocytes # (Manual) PT ABG pH POC ABG pCO2 POC ABG pO2 ABG pO2 ABG O2 Saturation ABG Base Excess ABG Hemoglobin ABG Oxyhemoglobin ABG Potassium ABG Chloride ABG Glucose Oxyhemoglobin Carboxyhemoglobin Sodium 176 H* Potassium Chloride 140.0 H Carbon Dioxide 20 L BUN 98 H Creatinine 3.9 H Glucose 206 H POC Glucose 135 H 158 H Hemoglobin A1c Lactic Acid Calcium Phosphorus Magnesium Transferrin AST ALT Alkaline Phosphatase Total Creatine Kinase 3240 H CK-MB (CK-2) Serum Total Protein Total Protein Albumin Xyoyy-3-Qykwftdgt Glsee-5-Wwecmrpae Gamma Globulins PEP Interpretation TSH Arterial Blood Glucose Arterial Blood Ionized Calcium Urine WBC (Auto) Urine Creatinine Urine Total Protein Crossmatch 04/22/21 04/22/21 04/22/21 00:01 00:39 00:58 WBC RBC Hgb Hct MCH RDW Plt Count Seg Neuts % (Manual) Lymphocytes % (Manual) Nucleated RBC % Seg Neutrophils # Delbert Lymphocytes # (Manual) PT ABG pH POC ABG pCO2 POC ABG pO2 ABG pO2 ABG O2 Saturation ABG Base Excess ABG Hemoglobin ABG Oxyhemoglobin ABG Potassium ABG Chloride ABG Glucose Oxyhemoglobin Carboxyhemoglobin Sodium 171 H* Potassium Chloride Carbon Dioxide BUN Creatinine Glucose POC Glucose 182 H 176 H Hemoglobin A1c Lactic Acid Calcium Phosphorus Magnesium Transferrin AST ALT Alkaline Phosphatase Total Creatine Kinase CK-MB (CK-2) Serum Total Protein Total Protein Albumin Ezaww-4-Fjcyyizps Teefm-7-Myjlsbkyv Gamma Globulins PEP Interpretation TSH Arterial Blood Glucose Arterial Blood Ionized Calcium Urine WBC (Auto) Urine Creatinine Urine Total Protein Crossmatch 04/22/21 04/22/21 04/22/21 01:04 04:52 06:07 WBC 11.2 H RBC Hgb Hct 44.3 H MCH 27 L RDW 17.1 H Plt Count 86 L Seg Neuts % (Manual) 86.0 H Lymphocytes % (Manual) 13.0 L Nucleated RBC % Seg Neutrophils # Man 9.6 H Lymphocytes # (Manual) PT ABG pH POC ABG pCO2 POC ABG pO2 ABG pO2 ABG O2 Saturation ABG Base Excess ABG Hemoglobin ABG Oxyhemoglobin ABG Potassium ABG Chloride ABG Glucose Oxyhemoglobin Carboxyhemoglobin Sodium Potassium Chloride Carbon Dioxide BUN Creatinine Glucose POC Glucose 143 H 206 H Hemoglobin A1c Lactic Acid Calcium Phosphorus Magnesium Transferrin AST ALT Alkaline Phosphatase Total Creatine Kinase CK-MB (CK-2) Serum Total Protein Total Protein Albumin Rlsgu-6-Nnmlwbkpd Adawx-0-Coiomiyla Gamma Globulins PEP Interpretation TSH Arterial Blood Glucose Arterial Blood Ionized Calcium Urine WBC (Auto) Urine Creatinine Urine Total Protein Crossmatch 04/22/21 04/22/21 04/22/21 06:09 07:18 08:59 WBC RBC Hgb Hct MCH RDW Plt Count Seg Neuts % (Manual) Lymphocytes % (Manual) Nucleated RBC % Seg Neutrophils # Man Lymphocytes # (Manual) PT ABG pH POC ABG pCO2 POC ABG pO2 ABG pO2 ABG O2 Saturation ABG Base Excess ABG Hemoglobin ABG Oxyhemoglobin ABG Potassium ABG Chloride ABG Glucose Oxyhemoglobin Carboxyhemoglobin Sodium Potassium Chloride Carbon Dioxide BUN Creatinine Glucose POC Glucose 163 H 158 H Hemoglobin A1c Lactic Acid Calcium Phosphorus Magnesium Transferrin AST ALT Alkaline Phosphatase Total Creatine Kinase 3105 H CK-MB (CK-2) Serum Total Protein Total Protein Albumin Pllwl-2-Qpskomdiu Xydcw-2-Eyshtveoz Gamma Globulins PEP Interpretation TSH Arterial Blood Glucose Arterial Blood Ionized Calcium Urine WBC (Auto) Urine Creatinine Urine Total Protein Crossmatch 04/22/21 04/22/21 04/22/21 08:59 08:59 09:44 WBC RBC Hgb Hct MCH RDW Plt Count Seg Neuts % (Manual) Lymphocytes % (Manual) Nucleated RBC % Seg Neutrophils # Man Lymphocytes # (Manual) PT ABG pH POC ABG pCO2 POC ABG pO2 ABG pO2 ABG O2 Saturation ABG Base Excess ABG Hemoglobin ABG Oxyhemoglobin ABG Potassium ABG Chloride ABG Glucose Oxyhemoglobin Carboxyhemoglobin Sodium 169 H* Potassium 3.5 L Chloride 134.5 H Carbon Dioxide 20 L BUN 95 H Creatinine 3.6 H Glucose 151 H POC Glucose Hemoglobin A1c Lactic Acid Calcium Phosphorus Magnesium 2.80 H Transferrin AST 121 H ALT 75 H Alkaline Phosphatase 137 H Total Creatine Kinase CK-MB (CK-2) Serum Total Protein 5.5 L Total Protein 6.0 L Albumin 2.8 L 2.1 L Hhort-0-Vlckfudvc 0.6 H Glmcl-7-Xmfsudnru 1.0 H Gamma Globulins 0.6 L PEP Interpretation see below H TSH Arterial Blood Glucose Arterial Blood Ionized Calcium Urine WBC (Auto) Urine Creatinine Urine Total Protein Crossmatch 04/22/21 04/22/21 04/22/21 10:24 12:20 13:19 WBC RBC Hgb Hct MCH RDW Plt Count Seg Neuts % (Manual) Lymphocytes % (Manual) Nucleated RBC % Seg Neutrophils # Man Lymphocytes # (Manual) PT ABG pH POC ABG pCO2 POC ABG pO2 ABG pO2 ABG O2 Saturation ABG Base Excess ABG Hemoglobin ABG Oxyhemoglobin ABG Potassium ABG Chloride ABG Glucose Oxyhemoglobin Carboxyhemoglobin Sodium Potassium Chloride Carbon Dioxide BUN Creatinine Glucose POC Glucose 107 H 131 H 147 H Hemoglobin A1c Lactic Acid Calcium Phosphorus Magnesium Transferrin AST ALT Alkaline Phosphatase Total Creatine Kinase CK-MB (CK-2) Serum Total Protein Total Protein Albumin Qjmgl-2-Pkkorkbwq Sexnf-1-Vhzhspbjk Gamma Globulins PEP Interpretation TSH Arterial Blood Glucose Arterial Blood Ionized Calcium Urine WBC (Auto) Urine Creatinine Urine Total Protein Crossmatch 04/22/21 04/22/21 04/22/21 14:16 15:22 15:55 WBC RBC Hgb Hct MCH RDW Plt Count Seg Neuts % (Manual) Lymphocytes % (Manual) Nucleated RBC % Seg Neutrophils # Man Lymphocytes # (Manual) PT ABG pH POC ABG pCO2 POC ABG pO2 ABG pO2 ABG O2 Saturation ABG Base Excess ABG Hemoglobin ABG Oxyhemoglobin ABG Potassium ABG Chloride ABG Glucose Oxyhemoglobin Carboxyhemoglobin Sodium 169 H* Potassium Chloride 133.5 H Carbon Dioxide 19 L BUN 94 H Creatinine 3.8 H Glucose 150 H POC Glucose 154 H 136 H Hemoglobin A1c Lactic Acid Calcium Phosphorus Magnesium Transferrin AST ALT Alkaline Phosphatase Total Creatine Kinase CK-MB (CK-2) Serum Total Protein Total Protein Albumin Piaiu-6-Hsoajlwqp Ypprh-5-Akpmyoutn Gamma Globulins PEP Interpretation TSH Arterial Blood Glucose Arterial Blood Ionized Calcium Urine WBC (Auto) Urine Creatinine Urine Total Protein Crossmatch 04/22/21 04/22/21 04/22/21 15:55 16:22 18:11 WBC RBC Hgb Hct MCH RDW Plt Count Seg Neuts % (Manual) Lymphocytes % (Manual) Nucleated RBC % Seg Neutrophils # Man Lymphocytes # (Manual) PT ABG pH POC ABG pCO2 POC ABG pO2 ABG pO2 ABG O2 Saturation ABG Base Excess ABG Hemoglobin ABG Oxyhemoglobin ABG Potassium ABG Chloride ABG Glucose Oxyhemoglobin Carboxyhemoglobin Sodium Potassium Chloride Carbon Dioxide BUN Creatinine Glucose POC Glucose 140 H Hemoglobin A1c 17.1 H Lactic Acid Calcium Phosphorus Magnesium Transferrin AST ALT Alkaline Phosphatase Total Creatine Kinase 2497 H CK-MB (CK-2) Serum Total Protein Total Protein Albumin Krcop-6-Uxugstyog Ojoav-1-Ljquulobx Gamma Globulins PEP Interpretation TSH Arterial Blood Glucose Arterial Blood Ionized Calcium Urine WBC (Auto) Urine Creatinine Urine Total Protein Crossmatch 04/22/21 04/22/21 04/23/21 18:26 23:19 00:27 WBC RBC Hgb Hct MCH RDW Plt Count Seg Neuts % (Manual) Lymphocytes % (Manual) Nucleated RBC % Seg Neutrophils # Man Lymphocytes # (Manual) PT ABG pH POC ABG pCO2 POC ABG pO2 ABG pO2 ABG O2 Saturation ABG Base Excess ABG Hemoglobin ABG Oxyhemoglobin ABG Potassium ABG Chloride ABG Glucose Oxyhemoglobin Carboxyhemoglobin Sodium 162 H* Potassium Chloride Carbon Dioxide BUN Creatinine Glucose POC Glucose 146 H 188 H Hemoglobin A1c Lactic Acid Calcium Phosphorus Magnesium Transferrin AST ALT Alkaline Phosphatase Total Creatine Kinase CK-MB (CK-2) Serum Total Protein Total Protein Albumin Wmirr-5-Cfszbtdwn Hpstk-5-Klxefrgui Gamma Globulins PEP Interpretation TSH Arterial Blood Glucose Arterial Blood Ionized Calcium Urine WBC (Auto) Urine Creatinine Urine Total Protein Crossmatch 04/23/21 04/23/21 04/23/21 05:23 07:50 08:13 WBC RBC Hgb Hct MCH RDW Plt Count Seg Neuts % (Manual) Lymphocytes % (Manual) Nucleated RBC % Seg Neutrophils # Man Lymphocytes # (Manual) PT ABG pH POC ABG pCO2 POC ABG pO2 ABG pO2 ABG O2 Saturation ABG Base Excess ABG Hemoglobin ABG Oxyhemoglobin ABG Potassium ABG Chloride ABG Glucose Oxyhemoglobin Carboxyhemoglobin Sodium Potassium Chloride Carbon Dioxide BUN Creatinine Glucose POC Glucose 212 H 239 H Hemoglobin A1c Lactic Acid Calcium Phosphorus Magnesium Transferrin AST ALT Alkaline Phosphatase Total Creatine Kinase 1803 H CK-MB (CK-2) Serum Total Protein Total Protein Albumin Buhiu-2-Iwkvfcrhc Ikvaj-6-Xdiiyxjly Gamma Globulins PEP Interpretation TSH Arterial Blood Glucose Arterial Blood Ionized Calcium Urine WBC (Auto) Urine Creatinine Urine Total Protein Crossmatch 04/23/21 04/23/21 04/23/21 08:13 08:13 12:06 WBC 11.9 H RBC Hgb Hct MCH 26 L RDW 16.5 H Plt Count 72 L Seg Neuts % (Manual) 80.0 H Lymphocytes % (Manual) 5.0 L Nucleated RBC % Seg Neutrophils # Man 9.5 H Lymphocytes # (Manual) 0.6 L PT ABG pH POC ABG pCO2 POC ABG pO2 ABG pO2 ABG O2 Saturation ABG Base Excess ABG Hemoglobin ABG Oxyhemoglobin ABG Potassium ABG Chloride ABG Glucose Oxyhemoglobin Carboxyhemoglobin Sodium 164 H* Potassium Chloride 128.0 H Carbon Dioxide 21 L BUN 93 H Creatinine 3.8 H Glucose 293 H POC Glucose 311 H Hemoglobin A1c Lactic Acid Calcium Phosphorus Magnesium Transferrin AST 99 H ALT 70 H Alkaline Phosphatase 147 H Total Creatine Kinase CK-MB (CK-2) Serum Total Protein Total Protein 6.1 L Albumin 2.0 L Ygopp-5-Ewqseuhkr Qlwge-6-Vueuansyv Gamma Globulins PEP Interpretation TSH Arterial Blood Glucose Arterial Blood Ionized Calcium Urine WBC (Auto) Urine Creatinine Urine Total Protein Crossmatch 04/23/21 04/23/21 04/24/21 17:35 18:17 02:13 WBC RBC Hgb Hct MCH RDW Plt Count Seg Neuts % (Manual) Lymphocytes % (Manual) Nucleated RBC % Seg Neutrophils # Man Lymphocytes # (Manual) PT ABG pH POC ABG pCO2 POC ABG pO2 ABG pO2 ABG O2 Saturation ABG Base Excess ABG Hemoglobin ABG Oxyhemoglobin ABG Potassium ABG Chloride ABG Glucose Oxyhemoglobin Carboxyhemoglobin Sodium 160 H 160 H Potassium Chloride Carbon Dioxide BUN Creatinine Glucose POC Glucose 370 H Hemoglobin A1c Lactic Acid Calcium Phosphorus Magnesium Transferrin AST ALT Alkaline Phosphatase Total Creatine Kinase CK-MB (CK-2) Serum Total Protein Total Protein Albumin Yjgdq-2-Tlwfetmat Evcvr-4-Eavvggkzq Gamma Globulins PEP Interpretation TSH Arterial Blood Glucose Arterial Blood Ionized Calcium Urine WBC (Auto) Urine Creatinine Urine Total Protein Crossmatch 04/24/21 04/24/21 04/24/21 06:00 06:00 07:46 WBC RBC Hgb Hct MCH 27 L RDW 17.0 H Plt Count 58 L Seg Neuts % (Manual) Lymphocytes % (Manual) 2.0 L Nucleated RBC % Seg Neutrophils # Man 8.9 H Lymphocytes # (Manual) 0.2 L PT ABG pH POC ABG pCO2 POC ABG pO2 ABG pO2 ABG O2 Saturation ABG Base Excess ABG Hemoglobin ABG Oxyhemoglobin ABG Potassium ABG Chloride ABG Glucose Oxyhemoglobin Carboxyhemoglobin Sodium Potassium Chloride Carbon Dioxide BUN Creatinine Glucose POC Glucose 395 H Hemoglobin A1c Lactic Acid Calcium Phosphorus Magnesium 2.90 H Transferrin AST ALT Alkaline Phosphatase Total Creatine Kinase CK-MB (CK-2) Serum Total Protein Total Protein Albumin Dkqex-6-Nturvqjsp Fldmc-3-Srplujfsz Gamma Globulins PEP Interpretation TSH Arterial Blood Glucose Arterial Blood Ionized Calcium Urine WBC (Auto) Urine Creatinine Urine Total Protein Crossmatch 04/24/21 04/24/21 04/24/21 08:15 11:34 13:11 WBC RBC Hgb Hct MCH RDW Plt Count Seg Neuts % (Manual) Lymphocytes % (Manual) Nucleated RBC % Seg Neutrophils # Man Lymphocytes # (Manual) PT ABG pH POC ABG pCO2 POC ABG pO2 ABG pO2 ABG O2 Saturation ABG Base Excess ABG Hemoglobin ABG Oxyhemoglobin ABG Potassium ABG Chloride ABG Glucose Oxyhemoglobin Carboxyhemoglobin Sodium 159 H Potassium Chloride 125.6 H Carbon Dioxide 19 L BUN 94 H Creatinine 3.7 H Glucose 514 H* POC Glucose 422 H 384 H Hemoglobin A1c Lactic Acid Calcium Phosphorus Magnesium Transferrin AST ALT 61 H Alkaline Phosphatase 155 H Total Creatine Kinase CK-MB (CK-2) Serum Total Protein Total Protein 6.1 L Albumin 1.5 L Cduaz-5-Mmaqmshzj Fswur-5-Qmzafdqmw Gamma Globulins PEP Interpretation TSH Arterial Blood Glucose Arterial Blood Ionized Calcium Urine WBC (Auto) Urine Creatinine Urine Total Protein Crossmatch 04/24/21 04/24/21 04/24/21 14:01 15:03 17:29 WBC RBC Hgb Hct MCH RDW Plt Count Seg Neuts % (Manual) Lymphocytes % (Manual) Nucleated RBC % Seg Neutrophils # Man Lymphocytes # (Manual) PT ABG pH POC ABG pCO2 POC ABG pO2 ABG pO2 ABG O2 Saturation ABG Base Excess ABG Hemoglobin ABG Oxyhemoglobin ABG Potassium ABG Chloride ABG Glucose Oxyhemoglobin Carboxyhemoglobin Sodium Potassium Chloride Carbon Dioxide BUN Creatinine Glucose POC Glucose 423 H 418 H Hemoglobin A1c Lactic Acid Calcium Phosphorus Magnesium Transferrin 112 L AST ALT Alkaline Phosphatase Total Creatine Kinase CK-MB (CK-2) Serum Total Protein Total Protein Albumin Jrjbq-9-Zvovxwymr Nigzx-5-Iectqjpop Gamma Globulins PEP Interpretation TSH Arterial Blood Glucose Arterial Blood Ionized Calcium Urine WBC (Auto) Urine Creatinine Urine Total Protein Crossmatch 04/24/21 04/24/21 04/24/21 18:28 19:41 22:33 WBC RBC Hgb Hct MCH RDW Plt Count Seg Neuts % (Manual) Lymphocytes % (Manual) Nucleated RBC % Seg Neutrophils # Man Lymphocytes # (Manual) PT ABG pH POC ABG pCO2 POC ABG pO2 ABG pO2 ABG O2 Saturation ABG Base Excess ABG Hemoglobin ABG Oxyhemoglobin ABG Potassium ABG Chloride ABG Glucose Oxyhemoglobin Carboxyhemoglobin Sodium Potassium Chloride Carbon Dioxide BUN Creatinine Glucose POC Glucose 335 H 321 H 349 H Hemoglobin A1c Lactic Acid Calcium Phosphorus Magnesium Transferrin AST ALT Alkaline Phosphatase Total Creatine Kinase CK-MB (CK-2) Serum Total Protein Total Protein Albumin Wafgw-3-Chahavfdq Lbxyy-3-Aobhhneie Gamma Globulins PEP Interpretation TSH Arterial Blood Glucose Arterial Blood Ionized Calcium Urine WBC (Auto) Urine Creatinine Urine Total Protein Crossmatch 04/25/21 04/25/21 04/25/21 01:28 02:28 03:25 WBC RBC Hgb Hct MCH RDW Plt Count Seg Neuts % (Manual) Lymphocytes % (Manual) Nucleated RBC % Seg Neutrophils # Man Lymphocytes # (Manual) PT ABG pH POC ABG pCO2 POC ABG pO2 ABG pO2 ABG O2 Saturation ABG Base Excess ABG Hemoglobin ABG Oxyhemoglobin ABG Potassium ABG Chloride ABG Glucose Oxyhemoglobin Carboxyhemoglobin Sodium Potassium Chloride Carbon Dioxide BUN Creatinine Glucose POC Glucose 283 H 247 H 196 H Hemoglobin A1c Lactic Acid Calcium Phosphorus Magnesium Transferrin AST ALT Alkaline Phosphatase Total Creatine Kinase CK-MB (CK-2) Serum Total Protein Total Protein Albumin Gbaxo-9-Douvsoedd Jwiqp-0-Vfzlhbiwn Gamma Globulins PEP Interpretation TSH Arterial Blood Glucose Arterial Blood Ionized Calcium Urine WBC (Auto) Urine Creatinine Urine Total Protein Crossmatch 04/25/21 04/25/21 04/25/21 04:22 05:40 05:45 WBC RBC Hgb Hct MCH 27 L RDW 17.0 H Plt Count 64 L Seg Neuts % (Manual) 84.0 H Lymphocytes % (Manual) 6.0 L Nucleated RBC % 1.0 H Seg Neutrophils # Man Lymphocytes # (Manual) 0.4 L PT ABG pH POC ABG pCO2 POC ABG pO2 ABG pO2 ABG O2 Saturation ABG Base Excess ABG Hemoglobin ABG Oxyhemoglobin ABG Potassium ABG Chloride ABG Glucose Oxyhemoglobin Carboxyhemoglobin Sodium Potassium Chloride Carbon Dioxide BUN Creatinine Glucose POC Glucose 207 H 204 H Hemoglobin A1c Lactic Acid Calcium Phosphorus Magnesium Transferrin AST ALT Alkaline Phosphatase Total Creatine Kinase CK-MB (CK-2) Serum Total Protein Total Protein Albumin Xwgzj-4-Ypgfnltus Yqhgb-1-Mihdi[place] Gamma Globulins PEP Interpretation TSH Arterial Blood Glucose Arterial Blood Ionized Calcium Urine WBC (Auto) Urine Creatinine Urine Total Protein Crossmatch 04/25/21 04/25/21 04/25/21 06:43 07:37 08:11 WBC RBC Hgb Hct MCH RDW Plt Count Seg Neuts % (Manual) Lymphocytes % (Manual) Nucleated RBC % Seg Neutrophils # Man Lymphocytes # (Manual) PT ABG pH POC ABG pCO2 POC ABG pO2 ABG pO2 ABG O2 Saturation ABG Base Excess ABG Hemoglobin ABG Oxyhemoglobin ABG Potassium ABG Chloride ABG Glucose Oxyhemoglobin Carboxyhemoglobin Sodium 148 H D Potassium Chloride 115.7 H Carbon Dioxide 21 L BUN 83 H Creatinine 3.6 H Glucose 247 H POC Glucose 238 H 201 H Hemoglobin A1c Lactic Acid Calcium Phosphorus Magnesium Transferrin AST 63 H ALT 62 H Alkaline Phosphatase 143 H Total Creatine Kinase CK-MB (CK-2) Serum Total Protein Total Protein 5.4 L Albumin 1.4 L Eszhi-1-Tfwffxdro Quohw-1-Fznhutdzr Gamma Globulins PEP Interpretation TSH Arterial Blood Glucose Arterial Blood Ionized Calcium Urine WBC (Auto) Urine Creatinine Urine Total Protein Crossmatch 04/25/21 04/25/21 04/25/21 08:11 08:41 09:22 WBC RBC Hgb Hct MCH RDW Plt Count Seg Neuts % (Manual) Lymphocytes % (Manual) Nucleated RBC % Seg Neutrophils # Man Lymphocytes # (Manual) PT ABG pH POC ABG pCO2 POC ABG pO2 ABG pO2 ABG O2 Saturation ABG Base Excess ABG Hemoglobin ABG Oxyhemoglobin ABG Potassium ABG Chloride ABG Glucose Oxyhemoglobin Carboxyhemoglobin Sodium Potassium Chloride Carbon Dioxide BUN Creatinine Glucose POC Glucose 220 H 228 H Hemoglobin A1c Lactic Acid Calcium Phosphorus Magnesium 2.50 H Transferrin AST ALT Alkaline Phosphatase Total Creatine Kinase CK-MB (CK-2) Serum Total Protein Total Protein Albumin Mulga-8-Remtojfkp Jtcaa-5-Ynhviwlfq Gamma Globulins PEP Interpretation TSH Arterial Blood Glucose Arterial Blood Ionized Calcium Urine WBC (Auto) Urine Creatinine Urine Total Protein Crossmatch 04/25/21 04/25/21 04/25/21 10:31 11:44 12:23 WBC RBC Hgb Hct MCH RDW Plt Count Seg Neuts % (Manual) Lymphocytes % (Manual) Nucleated RBC % Seg Neutrophils # Man Lymphocytes # (Manual) PT ABG pH POC ABG pCO2 POC ABG pO2 ABG pO2 ABG O2 Saturation ABG Base Excess ABG Hemoglobin ABG Oxyhemoglobin ABG Potassium ABG Chloride ABG Glucose Oxyhemoglobin Carboxyhemoglobin Sodium Potassium Chloride Carbon Dioxide BUN Creatinine Glucose POC Glucose 215 H 191 H 229 H Hemoglobin A1c Lactic Acid Calcium Phosphorus Magnesium Transferrin AST ALT Alkaline Phosphatase Total Creatine Kinase CK-MB (CK-2) Serum Total Protein Total Protein Albumin Lcaoo-0-Cumytvsxl Ulroq-9-Pheslzuln Gamma Globulins PEP Interpretation TSH Arterial Blood Glucose Arterial Blood Ionized Calcium Urine WBC (Auto) Urine Creatinine Urine Total Protein Crossmatch 04/25/21 04/25/21 04/25/21 13:48 14:11 18:01 WBC RBC Hgb Hct MCH RDW Plt Count Seg Neuts % (Manual) Lymphocytes % (Manual) Nucleated RBC % Seg Neutrophils # Man Lymphocytes # (Manual) PT ABG pH POC ABG pCO2 POC ABG pO2 ABG pO2 ABG O2 Saturation ABG Base Excess ABG Hemoglobin ABG Oxyhemoglobin ABG Potassium ABG Chloride ABG Glucose Oxyhemoglobin Carboxyhemoglobin Sodium Potassium Chloride Carbon Dioxide BUN Creatinine Glucose POC Glucose 177 H 161 H 264 H Hemoglobin A1c Lactic Acid Calcium Phosphorus Magnesium Transferrin AST ALT Alkaline Phosphatase Total Creatine Kinase CK-MB (CK-2) Serum Total Protein Total Protein Albumin Kzqgs-3-Ghvsjxvml Bbfjs-0-Xlkdonmuo Gamma Globulins PEP Interpretation TSH Arterial Blood Glucose Arterial Blood Ionized Calcium Urine WBC (Auto) Urine Creatinine Urine Total Protein Crossmatch 04/25/21 04/26/21 04/26/21 21:31 01:19 06:31 WBC RBC Hgb Hct MCH RDW Plt Count Seg Neuts % (Manual) Lymphocytes % (Manual) Nucleated RBC % Seg Neutrophils # Man Lymphocytes # (Manual) PT ABG pH POC ABG pCO2 POC ABG pO2 ABG pO2 ABG O2 Saturation ABG Base Excess ABG Hemoglobin ABG Oxyhemoglobin ABG Potassium ABG Chloride ABG Glucose Oxyhemoglobin Carboxyhemoglobin Sodium Potassium Chloride Carbon Dioxide BUN Creatinine Glucose POC Glucose 371 H 356 H 428 H Hemoglobin A1c Lactic Acid Calcium Phosphorus Magnesium Transferrin AST ALT Alkaline Phosphatase Total Creatine Kinase CK-MB (CK-2) Serum Total Protein Total Protein Albumin Ovmzy-0-Lknqcjttk Ompeg-2-Yyhrxugke Gamma Globulins PEP Interpretation TSH Arterial Blood Glucose Arterial Blood Ionized Calcium Urine WBC (Auto) Urine Creatinine Urine Total Protein Crossmatch 04/26/21 04/26/21 04/26/21 09:13 09:33 09:33 WBC RBC Hgb Hct MCH 27 L RDW 16.9 H Plt Count 58 L Seg Neuts % (Manual) 77.0 H Lymphocytes % (Manual) 4.0 L Nucleated RBC % 2.0 H Seg Neutrophils # Man Lymphocytes # (Manual) 0.3 L PT ABG pH POC ABG pCO2 POC ABG pO2 ABG pO2 ABG O2 Saturation ABG Base Excess ABG Hemoglobin ABG Oxyhemoglobin ABG Potassium ABG Chloride ABG Glucose Oxyhemoglobin Carboxyhemoglobin Sodium Potassium Chloride Carbon Dioxide BUN Creatinine Glucose POC Glucose 454 H Hemoglobin A1c Lactic Acid Calcium Phosphorus 5.60 H D Magnesium Transferrin AST ALT Alkaline Phosphatase Total Creatine Kinase CK-MB (CK-2) Serum Total Protein Total Protein Albumin Vnumu-3-Qleuzakzo Daimh-4-Mqytieytx Gamma Globulins PEP Interpretation TSH Arterial Blood Glucose Arterial Blood Ionized Calcium Urine WBC (Auto) Urine Creatinine Urine Total Protein Crossmatch 04/26/21 04/26/21 04/26/21 09:33 11:00 12:36 WBC RBC Hgb Hct MCH RDW Plt Count Seg Neuts % (Manual) Lymphocytes % (Manual) Nucleated RBC % Seg Neutrophils # Man Lymphocytes # (Manual) PT ABG pH 7.281 L POC ABG pCO2 POC ABG pO2 66.4 L ABG pO2 ABG O2 Saturation ABG Base Excess ABG Hemoglobin 10.9 L ABG Oxyhemoglobin 91 L ABG Potassium ABG Chloride ABG Glucose 521 H Oxyhemoglobin Carboxyhemoglobin Sodium Potassium Chloride Carbon Dioxide 19 L BUN 98 H Creatinine 3.8 H Glucose 530 H* POC Glucose 414 H Hemoglobin A1c Lactic Acid Calcium 8.1 L Phosphorus Magnesium Transferrin AST 60 H ALT 72 H Alkaline Phosphatase 168 H Total Creatine Kinase CK-MB (CK-2) Serum Total Protein Total Protein 4.6 L Albumin 1.7 L Euiec-0-Atwxobwmf Wvhew-0-Ridlyshbo Gamma Globulins PEP Interpretation TSH Arterial Blood Glucose 521 H Arterial Blood Ionized Calcium Urine WBC (Auto) Urine Creatinine Urine Total Protein Crossmatch 04/26/21 04/26/21 04/26/21 15:39 16:18 21:14 WBC RBC Hgb Hct MCH RDW Plt Count Seg Neuts % (Manual) Lymphocytes % (Manual) Nucleated RBC % Seg Neutrophils # Man Lymphocytes # (Manual) PT ABG pH 7.275 L POC ABG pCO2 POC ABG pO2 63.4 L ABG pO2 ABG O2 Saturation ABG Base Excess ABG Hemoglobin 8.4 L ABG Oxyhemoglobin 89.5 L ABG Potassium ABG Chloride 108.0 H ABG Glucose 404 H Oxyhemoglobin Carboxyhemoglobin Sodium Potassium Chloride Carbon Dioxide BUN Creatinine Glucose POC Glucose 324 H 242 H Hemoglobin A1c Lactic Acid Calcium Phosphorus Magnesium Transferrin AST ALT Alkaline Phosphatase Total Creatine Kinase CK-MB (CK-2) Serum Total Protein Total Protein Albumin Ommyl-3-Uxtiyzjdi Xmpog-4-Wdfxpvhvc Gamma Globulins PEP Interpretation TSH Arterial Blood Glucose 404 H Arterial Blood Ionized Calcium Urine WBC (Auto) Urine Creatinine Urine Total Protein Crossmatch 04/27/21 04/27/21 04/27/21 00:07 05:47 06:23 WBC RBC Hgb Hct MCH RDW Plt Count Seg Neuts % (Manual) Lymphocytes % (Manual) Nucleated RBC % Seg Neutrophils # Man Lymphocytes # (Manual) PT ABG pH POC ABG pCO2 POC ABG pO2 ABG pO2 ABG O2 Saturation ABG Base Excess ABG Hemoglobin ABG Oxyhemoglobin ABG Potassium ABG Chloride ABG Glucose Oxyhemoglobin Carboxyhemoglobin Sodium Potassium Chloride Carbon Dioxide BUN Creatinine Glucose POC Glucose 282 H 214 H 187 H Hemoglobin A1c Lactic Acid Calcium Phosphorus Magnesium Transferrin AST ALT Alkaline Phosphatase Total Creatine Kinase CK-MB (CK-2) Serum Total Protein Total Protein Albumin Kreiw-6-Ijhnrdrjf Frjes-6-Svpuunygg Gamma Globulins PEP Interpretation TSH Arterial Blood Glucose Arterial Blood Ionized Calcium Urine WBC (Auto) Urine Creatinine Urine Total Protein Crossmatch 04/27/21 04/27/21 04/27/21 07:43 08:30 11:54 WBC RBC Hgb Hct MCH RDW Plt Count Seg Neuts % (Manual) Lymphocytes % (Manual) Nucleated RBC % Seg Neutrophils # Man Lymphocytes # (Manual) PT ABG pH 7.309 L POC ABG pCO2 POC ABG pO2 70.6 L ABG pO2 ABG O2 Saturation ABG Base Excess ABG Hemoglobin 9.16 L ABG Oxyhemoglobin 92.4 L ABG Potassium ABG Chloride ABG Glucose Oxyhemoglobin Carboxyhemoglobin Sodium Potassium Chloride 110.1 H Carbon Dioxide 15 L BUN 109 H Creatinine 4.3 H Glucose 218 H POC Glucose 147 H Hemoglobin A1c Lactic Acid Calcium Phosphorus Magnesium Transferrin AST 53 H ALT Alkaline Phosphatase 148 H Total Creatine Kinase 1000 H CK-MB (CK-2) Serum Total Protein Total Protein 5.2 L Albumin 1.2 L Tgrtf-2-Dqawfdoyr Ldcfz-4-Spojzcuev Gamma Globulins PEP Interpretation TSH Arterial Blood Glucose Arterial Blood Ionized Calcium Urine WBC (Auto) Urine Creatinine Urine Total Protein Crossmatch 04/27/21 04/27/21 04/28/21 21:08 23:28 04:00 WBC 12.6 H RBC 3.59 L Hgb 9.4 L Hct MCH 26 L RDW 16.6 H Plt Count 111 L Seg Neuts % (Manual) Lymphocytes % (Manual) 1.0 L Nucleated RBC % 4.0 H Seg Neutrophils # Man 11.6 H Lymphocytes # (Manual) 0.1 L PT ABG pH POC ABG pCO2 POC ABG pO2 ABG pO2 ABG O2 Saturation ABG Base Excess ABG Hemoglobin ABG Oxyhemoglobin ABG Potassium ABG Chloride ABG Glucose Oxyhemoglobin Carboxyhemoglobin Sodium Potassium Chloride Carbon Dioxide BUN Creatinine Glucose POC Glucose 136 H 201 H Hemoglobin A1c Lactic Acid Calcium Phosphorus Magnesium Transferrin AST ALT Alkaline Phosphatase Total Creatine Kinase CK-MB (CK-2) Serum Total Protein Total Protein Albumin Rqgzp-3-Uspmicmno Jfxls-2-Izhqoynmw Gamma Globulins PEP Interpretation TSH Arterial Blood Glucose Arterial Blood Ionized Calcium Urine WBC (Auto) Urine Creatinine Urine Total Protein Crossmatch 04/28/21 04/28/21 04/28/21 04:00 05:00 05:08 WBC RBC Hgb Hct MCH RDW Plt Count Seg Neuts % (Manual) Lymphocytes % (Manual) Nucleated RBC % Seg Neutrophils # Man Lymphocytes # (Manual) PT 15.3 H ABG pH POC ABG pCO2 POC ABG pO2 ABG pO2 ABG O2 Saturation ABG Base Excess ABG Hemoglobin ABG Oxyhemoglobin ABG Potassium ABG Chloride ABG Glucose Oxyhemoglobin Carboxyhemoglobin Sodium 147 H Potassium 3.5 L D Chloride Carbon Dioxide BUN 79 H Creatinine 3.8 H Glucose 194 H POC Glucose 183 H Hemoglobin A1c Lactic Acid Calcium 8.1 L Phosphorus Magnesium Transferrin AST ALT Alkaline Phosphatase Total Creatine Kinase CK-MB (CK-2) Serum Total Protein Total Protein Albumin Ftnxo-1-Mcvrlwlmw Voogt-4-Dxnqphbdm Gamma Globulins PEP Interpretation TSH Arterial Blood Glucose Arterial Blood Ionized Calcium Urine WBC (Auto) Urine Creatinine Urine Total Protein Crossmatch 04/28/21 04/28/21 04/28/21 05:18 11:04 17:16 WBC RBC Hgb Hct MCH RDW Plt Count Seg Neuts % (Manual) Lymphocytes % (Manual) Nucleated RBC % Seg Neutrophils # Man Lymphocytes # (Manual) PT ABG pH POC ABG pCO2 POC ABG pO2 66.5 L ABG pO2 ABG O2 Saturation ABG Base Excess ABG Hemoglobin 9.7 L ABG Oxyhemoglobin 92.5 L ABG Potassium 3.2 L ABG Chloride ABG Glucose 200 H Oxyhemoglobin Carboxyhemoglobin Sodium Potassium Chloride Carbon Dioxide BUN Creatinine Glucose POC Glucose 174 H 135 H Hemoglobin A1c Lactic Acid Calcium Phosphorus Magnesium Transferrin AST ALT Alkaline Phosphatase Total Creatine Kinase CK-MB (CK-2) Serum Total Protein Total Protein Albumin Dpsjx-8-Hwjrbowga Xpyyf-0-Vpcoujbxn Gamma Globulins PEP Interpretation TSH Arterial Blood Glucose 200 H Arterial Blood Ionized Calcium 4.5 L Urine WBC (Auto) Urine Creatinine Urine Total Protein Crossmatch 04/28/21 04/28/21 04/29/21 21:14 23:41 01:16 WBC RBC Hgb Hct MCH RDW Plt Count Seg Neuts % (Manual) Lymphocytes % (Manual) Nucleated RBC % Seg Neutrophils # Man Lymphocytes # (Manual) PT ABG pH POC ABG pCO2 POC ABG pO2 ABG pO2 ABG O2 Saturation ABG Base Excess ABG Hemoglobin ABG Oxyhemoglobin ABG Potassium ABG Chloride ABG Glucose Oxyhemoglobin Carboxyhemoglobin Sodium Potassium Chloride Carbon Dioxide BUN Creatinine Glucose POC Glucose 134 H 171 H 236 H Hemoglobin A1c Lactic Acid Calcium Phosphorus Magnesium Transferrin AST ALT Alkaline Phosphatase Total Creatine Kinase CK-MB (CK-2) Serum Total Protein Total Protein Albumin Lexts-0-Yszscjdls Wwfim-8-Ytunykomk Gamma Globulins PEP Interpretation TSH Arterial Blood Glucose Arterial Blood Ionized Calcium Urine WBC (Auto) Urine Creatinine Urine Total Protein Crossmatch 04/29/21 04/29/21 04/29/21 04:00 04:00 11:35 WBC 13.3 H RBC 3.12 L Hgb 8.3 L Hct 26.2 L MCH 27 L RDW 16.3 H Plt Count 132 L Seg Neuts % (Manual) Lymphocytes % (Manual) Nucleated RBC % Seg Neutrophils # Man Lymphocytes # (Manual) PT ABG pH POC ABG pCO2 POC ABG pO2 ABG pO2 ABG O2 Saturation ABG Base Excess ABG Hemoglobin ABG Oxyhemoglobin ABG Potassium ABG Chloride ABG Glucose Oxyhemoglobin Carboxyhemoglobin Sodium Potassium Chloride Carbon Dioxide BUN 63 H Creatinine 3.4 H Glucose 249 H POC Glucose 320 H Hemoglobin A1c Lactic Acid Calcium 8.2 L Phosphorus Magnesium Transferrin AST 61 H ALT 71 H Alkaline Phosphatase 170 H Total Creatine Kinase CK-MB (CK-2) Serum Total Protein Total Protein 5.1 L Albumin 1.6 L Pilzs-1-Yhmmivnie Cethn-4-Mlyajvzdn Gamma Globulins PEP Interpretation TSH Arterial Blood Glucose Arterial Blood Ionized Calcium Urine WBC (Auto) Urine Creatinine Urine Total Protein Crossmatch 04/29/21 04/29/21 04/29/21 13:30 16:01 21:58 WBC RBC Hgb Hct MCH RDW Plt Count Seg Neuts % (Manual) Lymphocytes % (Manual) Nucleated RBC % Seg Neutrophils # Man Lymphocytes # (Manual) PT ABG pH POC ABG pCO2 POC ABG pO2 ABG pO2 ABG O2 Saturation ABG Base Excess ABG Hemoglobin ABG Oxyhemoglobin ABG Potassium ABG Chloride ABG Glucose Oxyhemoglobin Carboxyhemoglobin Sodium Potassium Chloride Carbon Dioxide BUN Creatinine Glucose POC Glucose 297 H 260 H Hemoglobin A1c Lactic Acid Calcium Phosphorus Magnesium Transferrin AST ALT Alkaline Phosphatase Total Creatine Kinase CK-MB (CK-2) Serum Total Protein Total Protein Albumin Bydyj-2-Pgfymdddl Boczs-2-Dulbgrkeb Gamma Globulins PEP Interpretation TSH Arterial Blood Glucose Arterial Blood Ionized Calcium Urine WBC (Auto) > 182.0 H Urine Creatinine Urine Total Protein Crossmatch 04/29/21 04/30/21 04/30/21 23:35 04:00 04:00 WBC 11.4 H RBC 3.27 L Hgb 8.7 L Hct 27.5 L MCH 27 L RDW 16.6 H Plt Count Seg Neuts % (Manual) Lymphocytes % (Manual) Nucleated RBC % Seg Neutrophils # Man Lymphocytes # (Manual) PT ABG pH POC ABG pCO2 POC ABG pO2 ABG pO2 ABG O2 Saturation ABG Base Excess ABG Hemoglobin ABG Oxyhemoglobin ABG Potassium ABG Chloride ABG Glucose Oxyhemoglobin Carboxyhemoglobin Sodium Potassium 3.1 L Chloride Carbon Dioxide BUN 79 H Creatinine 3.9 H Glucose 275 H POC Glucose 254 H Hemoglobin A1c Lactic Acid Calcium Phosphorus 5.60 H D Magnesium Transferrin AST ALT Alkaline Phosphatase Total Creatine Kinase CK-MB (CK-2) Serum Total Protein Total Protein Albumin Rbbtm-3-Gsroubgtr Rpqny-9-Aabuopdpc Gamma Globulins PEP Interpretation TSH Arterial Blood Glucose Arterial Blood Ionized Calcium Urine WBC (Auto) Urine Creatinine Urine Total Protein Crossmatch 04/30/21 04/30/21 04/30/21 05:17 05:31 12:31 WBC RBC Hgb Hct MCH RDW Plt Count Seg Neuts % (Manual) Lymphocytes % (Manual) Nucleated RBC % Seg Neutrophils # Man Lymphocytes # (Manual) PT ABG pH 7.452 H POC ABG pCO2 30.5 L POC ABG pO2 54.5 L ABG pO2 ABG O2 Saturation ABG Base Excess ABG Hemoglobin 10.1 L ABG Oxyhemoglobin 87.4 L ABG Potassium 2.9 L ABG Chloride ABG Glucose 305 H Oxyhemoglobin Carboxyhemoglobin Sodium Potassium Chloride Carbon Dioxide BUN Creatinine Glucose POC Glucose 267 H 259 H Hemoglobin A1c Lactic Acid Calcium Phosphorus Magnesium Transferrin AST ALT Alkaline Phosphatase Total Creatine Kinase CK-MB (CK-2) Serum Total Protein Total Protein Albumin Wdeda-1-Ofebcurtg Fzwyo-6-Hmyknjdhy Gamma Globulins PEP Interpretation TSH Arterial Blood Glucose 305 H Arterial Blood Ionized Calcium Urine WBC (Auto) Urine Creatinine Urine Total Protein Crossmatch 04/30/21 04/30/21 05/01/21 17:50 22:24 00:09 WBC RBC Hgb Hct MCH RDW Plt Count Seg Neuts % (Manual) Lymphocytes % (Manual) Nucleated RBC % Seg Neutrophils # Man Lymphocytes # (Manual) PT ABG pH POC ABG pCO2 POC ABG pO2 ABG pO2 ABG O2 Saturation ABG Base Excess ABG Hemoglobin ABG Oxyhemoglobin ABG Potassium ABG Chloride ABG Glucose Oxyhemoglobin Carboxyhemoglobin Sodium Potassium Chloride Carbon Dioxide BUN Creatinine Glucose POC Glucose 161 H 146 H 149 H Hemoglobin A1c Lactic Acid Calcium Phosphorus Magnesium Transferrin AST ALT Alkaline Phosphatase Total Creatine Kinase CK-MB (CK-2) Serum Total Protein Total Protein Albumin Jhedg-3-Umohtmbeo Zlafw-6-Jeiuzcayn Gamma Globulins PEP Interpretation TSH Arterial Blood Glucose Arterial Blood Ionized Calcium Urine WBC (Auto) Urine Creatinine Urine Total Protein Crossmatch 05/01/21 05/01/21 05/01/21 03:30 04:00 04:00 WBC 12.0 H RBC 3.08 L Hgb 8.1 L Hct 25.6 L MCH 26 L RDW 16.3 H Plt Count Seg Neuts % (Manual) Lymphocytes % (Manual) Nucleated RBC % Seg Neutrophils # Man Lymphocytes # (Manual) PT ABG pH 7.493 H POC ABG pCO2 POC ABG pO2 ABG pO2 ABG O2 Saturation ABG Base Excess ABG Hemoglobin 25.0 H ABG Oxyhemoglobin ABG Potassium ABG Chloride ABG Glucose 167 H Oxyhemoglobin Carboxyhemoglobin 0.4 L Sodium Potassium 3.5 L Chloride Carbon Dioxide BUN 62 H Creatinine 3.3 H Glucose 179 H POC Glucose Hemoglobin A1c Lactic Acid Calcium 8.3 L Phosphorus Magnesium Transferrin AST ALT Alkaline Phosphatase Total Creatine Kinase CK-MB (CK-2) Serum Total Protein Total Protein Albumin Vcfco-9-Tneerfxrl Qcbud-9-Ftoplfifh Gamma Globulins PEP Interpretation TSH Arterial Blood Glucose 167 H Arterial Blood Ionized Calcium Urine WBC (Auto) Urine Creatinine Urine Total Protein Crossmatch 05/01/21 05/01/21 05/01/21 05:48 11:49 16:24 WBC RBC Hgb Hct MCH RDW Plt Count Seg Neuts % (Manual) Lymphocytes % (Manual) Nucleated RBC % Seg Neutrophils # Man Lymphocytes # (Manual) PT ABG pH POC ABG pCO2 POC ABG pO2 ABG pO2 ABG O2 Saturation ABG Base Excess ABG Hemoglobin ABG Oxyhemoglobin ABG Potassium ABG Chloride ABG Glucose Oxyhemoglobin Carboxyhemoglobin Sodium Potassium Chloride Carbon Dioxide BUN Creatinine Glucose POC Glucose 197 H 167 H 157 H Hemoglobin A1c Lactic Acid Calcium Phosphorus Magnesium Transferrin AST ALT Alkaline Phosphatase Total Creatine Kinase CK-MB (CK-2) Serum Total Protein Total Protein Albumin Glizy-2-Xbjvzeqpt Uilxg-6-Bpfatxdek Gamma Globulins PEP Interpretation TSH Arterial Blood Glucose Arterial Blood Ionized Calcium Urine WBC (Auto) Urine Creatinine Urine Total Protein Crossmatch 05/01/21 05/02/21 05/02/21 23:25 04:00 04:00 WBC 14.2 H RBC 2.61 L Hgb 6.9 L Hct 22.1 L MCH 27 L RDW 16.1 H Plt Count Seg Neuts % (Manual) Lymphocytes % (Manual) Nucleated RBC % Seg Neutrophils # Man Lymphocytes # (Manual) PT ABG pH POC ABG pCO2 POC ABG pO2 ABG pO2 ABG O2 Saturation ABG Base Excess ABG Hemoglobin ABG Oxyhemoglobin ABG Potassium ABG Chloride ABG Glucose Oxyhemoglobin Carboxyhemoglobin Sodium Potassium Chloride Carbon Dioxide BUN 49 H Creatinine 2.8 H Glucose 117 H POC Glucose 147 H Hemoglobin A1c Lactic Acid Calcium Phosphorus Magnesium Transferrin AST ALT Alkaline Phosphatase Total Creatine Kinase CK-MB (CK-2) Serum Total Protein Total Protein Albumin Crvvp-8-Vcxyjrsex Tffbc-4-Gptquhfll Gamma Globulins PEP Interpretation TSH Arterial Blood Glucose Arterial Blood Ionized Calcium Urine WBC (Auto) Urine Creatinine Urine Total Protein Crossmatch 05/02/21 05/02/21 05/02/21 04:34 05:23 12:00 WBC RBC Hgb Hct MCH RDW Plt Count Seg Neuts % (Manual) Lymphocytes % (Manual) Nucleated RBC % Seg Neutrophils # Man Lymphocytes # (Manual) PT ABG pH 7.487 H POC ABG pCO2 POC ABG pO2 78.6 L ABG pO2 ABG O2 Saturation ABG Base Excess ABG Hemoglobin 11.5 L ABG Oxyhemoglobin ABG Potassium ABG Chloride ABG Glucose 122 H Oxyhemoglobin Carboxyhemoglobin Sodium Potassium Chloride Carbon Dioxide BUN Creatinine Glucose POC Glucose 119 H Hemoglobin A1c Lactic Acid Calcium Phosphorus Magnesium Transferrin AST ALT Alkaline Phosphatase Total Creatine Kinase CK-MB (CK-2) Serum Total Protein Total Protein Albumin Xsall-5-Tlythjbpv Yxxgm-3-Qhniooccf Gamma Globulins PEP Interpretation TSH Arterial Blood Glucose 122 H Arterial Blood Ionized Calcium Urine WBC (Auto) Urine Creatinine Urine Total Protein Crossmatch See Detail 05/02/21 05/02/21 05/02/21 12:04 17:29 23:36 WBC RBC Hgb Hct MCH RDW Plt Count Seg Neuts % (Manual) Lymphocytes % (Manual) Nucleated RBC % Seg Neutrophils # Man Lymphocytes # (Manual) PT ABG pH POC ABG pCO2 POC ABG pO2 ABG pO2 ABG O2 Saturation ABG Base Excess ABG Hemoglobin ABG Oxyhemoglobin ABG Potassium ABG Chloride ABG Glucose Oxyhemoglobin Carboxyhemoglobin Sodium Potassium Chloride Carbon Dioxide BUN Creatinine Glucose POC Glucose 115 H 120 H 130 H Hemoglobin A1c Lactic Acid Calcium Phosphorus Magnesium Transferrin AST ALT Alkaline Phosphatase Total Creatine Kinase CK-MB (CK-2) Serum Total Protein Total Protein Albumin Pquqh-8-Cridglwii Wwinx-5-Cekhghwwi Gamma Globulins PEP Interpretation TSH Arterial Blood Glucose Arterial Blood Ionized Calcium Urine WBC (Auto) Urine Creatinine Urine Total Protein Crossmatch 05/03/21 04:00 WBC 13.9 H RBC 3.22 L Hgb 8.7 L Hct 27.4 L MCH 27 L RDW 15.8 H Plt Count Seg Neuts % (Manual) Lymphocytes % (Manual) Nucleated RBC % Seg Neutrophils # Man Lymphocytes # (Manual) PT ABG pH POC ABG pCO2 POC ABG pO2 ABG pO2 ABG O2 Saturation ABG Base Excess ABG Hemoglobin ABG Oxyhemoglobin ABG Potassium ABG Chloride ABG Glucose Oxyhemoglobin Carboxyhemoglobin Sodium Potassium Chloride Carbon Dioxide BUN Creatinine Glucose POC Glucose Hemoglobin A1c Lactic Acid Calcium Phosphorus Magnesium Transferrin AST ALT Alkaline Phosphatase Total Creatine Kinase CK-MB (CK-2) Serum Total Protein Total Protein Albumin Nkpje-1-Qamaesnge Tnuws-7-Gwjfzqijl Gamma Globulins PEP Interpretation TSH Arterial Blood Glucose Arterial Blood Ionized Calcium Urine WBC (Auto) Urine Creatinine Urine Total Protein Crossmatch
[2021-05-03 06:54] LABS: Albumin 1.5 g/dL (3.9-5); Calcium 9.5 mg/dL (8.4-10.2)
[2021-05-03] MEDS: SODIUM BICARBONATE 650 MG TAB PO SCH ×3 (09:00→21:01)
[2021-05-03] MEDS: FAMOTIDINE 10 MG TAB FEEDTUBE SCH ×2 (09:21→21:02)
--- NOTE | 2021-05-03 09:36 | Progress Note ---
Assessment and Plan 80 y/o female with altered mental state, severe electrolyte imbalance with presumptive acute renal failure and hypothermia. 05/03/21: Follow up Neurology recs for today. Attempt PSV trials. HD on yesterday. Very very guarded prognosis. 05/02/21: MRI today. Repeat cultures. HD per renal. Once MRI results back will discuss with Neurosurgery to see if anything further should be done. Abx per ID. Overall prognosis is very guarded to poor. 04/29/21: Will reach out to neuro after 24-48 hours post spinal tap pending any change in mentation. If improvement, may need to consider shunt placement. If not, not sure that there is anything they can offer. if they still want MRI, then can obtain. Now spiking temps. Blood cultures and UA. Given time frame in Hospital will place on Vanc and Cefepime. Guarded prognosis. HD per renal. Given anasarca, will ask renal about trying to remove volume. 04/28/21: Will discuss with renal about HD again today. MRI vs LP (large amount). Coags are ok. Will attempt to get at least one of these done today. Patient is still on 80% but sat is 100. Will ask [employer] about placing ART line today. Wean FiO2 as tolerated. Guarded prognosis. 04/27/21: HD today per renal. Vascath placed and awaiting CXR for conformation of good placement (done and good). Vent weaning as tolerated for sats >88%. ABG in the AM. Will check Coags in the am and hopeful these are stable. Platelets need to above 50K. Would like to do large volume spinal tap to see if this helps with mentation. Will also obtain MRI once oxygen requirement improves. 04/26/21: WIll electively intubate and then obtain MRI. Pending MRI results, will likely order large volume spinal tap to assess if NPH is a factor or not. Guarded prognosis. Electrolytes are improving. 04/25/21: Continue to follow renal recs. Will reach out to POA either today or tomorrow for further updates. Follow up renal recs. Monitor electrolytes and renal function. Guarded prognosis. 1. Neuro-reached out to neuro surgery, placed consult in regards to CT findings 2. Renal-appreciate help and recs, will follow IV hydration recommendations 3. Blood cultures. Urine was negative 4. Jorge Longo for temp Guarded prognosis CCT 31 minutes. 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 Remains unresponsive Objective Vital Signs - 12hr 05/02/21 05/02/21 05/02/21 22:00 22:01 22:31 Temperature Pulse Rate 102 H 102 H 107 H Pulse Rate [ From Monitor] Respiratory 19 21 18 Rate Blood Pressure 118/52 118/52 97/45 O2 Sat by Pulse 97 98 Oximetry 05/02/21 05/02/21 05/02/21 23:00 23:30 23:48 Temperature 99.3 F Pulse Rate 91 H 98 H Pulse Rate [ From Monitor] Respiratory 16 18 Rate Blood Pressure 98/41 110/51 O2 Sat by Pulse 98 98 Oximetry 05/03/21 05/03/21 05/03/21 00:00 00:30 01:00 Temperature Pulse Rate 91 H 86 90 Pulse Rate [ 88 From Monitor] Respiratory 17 19 17 Rate Blood Pressure 96/48 84/40 86/42 O2 Sat by Pulse 99 98 98 Oximetry 05/03/21 05/03/21 05/03/21 01:30 02:00 02:31 Temperature Pulse Rate 85 88 94 H Pulse Rate [ From Monitor] Respiratory 16 16 24 Rate Blood Pressure 101/46 102/48 113/56 O2 Sat by Pulse 98 99 98 Oximetry 05/03/21 05/03/21 05/03/21 02:57 03:00 03:30 Temperature 97.5 F L Pulse Rate 92 H 94 H 93 H Pulse Rate [ From Monitor] Respiratory 26 H 21 Rate Blood Pressure 103/51 103/51 108/47 O2 Sat by Pulse 100 98 95 Oximetry 05/03/21 05/03/21 05/03/21 03:39 04:00 04:30 Temperature Pulse Rate 91 H 98 H 90 Pulse Rate [ 93 H From Monitor] Respiratory 15 22 17 Rate Blood Pressure 112/49 100/45 O2 Sat by Pulse 100 97 97 Oximetry 05/03/21 05/03/21 05/03/21 05:00 05:30 06:00 Temperature Pulse Rate 96 H 90 94 H Pulse Rate [ From Monitor] Respiratory 20 25 H 18 Rate Blood Pressure 115/49 104/44 107/45 O2 Sat by Pulse 98 97 96 Oximetry 05/03/21 05/03/21 08:00 08:37 Temperature 99.3 F Pulse Rate 102 H Pulse Rate [ From Monitor] Respiratory Rate Blood Pressure 116/55 O2 Sat by Pulse 98 Oximetry Constitutional: other (critically ill, somnolent, on vent) Eyes: non-icteric ENT: oropharynx dry Effort: other (tachypneic but not labored) Ascultation: Bilateral: clear Cardiovascular: regular rate and rhythm Gastrointestinal: normoactive bowel sounds, soft, non-tender, non-distended Integumentary: normal Extremities: no cyanosis, no edema, pink and warm Neurologic: unable to assess Psychiatric: other (unable to assess) CBC and BMP: 05/03/21 04:00 05/03/21 04:00 ABG, PT/INR, D-dimer: ABG ABG pH 7.487 (7.320-7.450) H 05/02/21 04:34 POC ABG pCO2 35.3 mmHg (32.0-48.0) 05/02/21 04:34 ABG pCO2 31.6 mm Hg 04/21/21 15:47 POC ABG pO2 78.6 mmHg (83-108) L 05/02/21 04:34 ABG pO2 168.1 mm Hg (80.0-90.0) H 04/21/21 15:47 POC ABG HCO3 26.1 05/02/21 04:34 ABG O2 Saturation 96.0 (0-100) 05/02/21 04:34 PT/INR, D-dimer PT 15.3 Sec. (12.2-14.9) H 04/28/21 05:00 INR 1.09 (0.87-1.13) 04/28/21 05:00 Abnormal lab findings: Abnormal Labs 04/20/21 04/20/21 04/20/21 17:10 17:10 17:10 WBC 17.4 H RBC 5.19 H Hgb Hct 46.8 H MCH 27 L RDW 17.2 H Plt Count Seg Neuts % (Manual) 98.0 H Lymphocytes % (Manual) 2.0 L Nucleated RBC % 1.0 H Seg Neutrophils # Man 17.1 H Lymphocytes # (Manual) 0.3 L PT ABG pH POC ABG pCO2 POC ABG pO2 ABG pO2 ABG O2 Saturation ABG Base Excess ABG Hemoglobin ABG Oxyhemoglobin ABG Potassium ABG Chloride ABG Glucose Oxyhemoglobin Carboxyhemoglobin Sodium 173 H* Potassium Chloride 132.9 H Carbon Dioxide 17 L BUN 120 H Creatinine 4.2 H Glucose 762 H* POC Glucose Hemoglobin A1c Lactic Acid Calcium Phosphorus Magnesium 3.80 H Transferrin AST 72 H ALT 63 H Alkaline Phosphatase 148 H Total Creatine Kinase 3697 H CK-MB (CK-2) 36.0 H Serum Total Protein Total Protein Albumin 2.2 L Cdpei-1-Ekkkwlius Dhoyt-3-Jzsdxzdmd Gamma Globulins PEP Interpretation TSH Arterial Blood Glucose Arterial Blood Ionized Calcium Urine WBC (Auto) Urine Creatinine Urine Total Protein Crossmatch 04/20/21 04/20/21 04/20/21 17:10 17:10 18:55 WBC RBC Hgb Hct MCH RDW Plt Count Seg Neuts % (Manual) Lymphocytes % (Manual) Nucleated RBC % Seg Neutrophils # Man Lymphocytes # (Manual) PT ABG pH POC ABG pCO2 POC ABG pO2 ABG pO2 ABG O2 Saturation ABG Base Excess ABG Hemoglobin ABG Oxyhemoglobin ABG Potassium ABG Chloride ABG Glucose Oxyhemoglobin Carboxyhemoglobin Sodium Potassium Chloride Carbon Dioxide BUN Creatinine Glucose POC Glucose 574 H Hemoglobin A1c Lactic Acid 2.60 H* Calcium Phosphorus Magnesium Transferrin AST ALT Alkaline Phosphatase Total Creatine Kinase CK-MB (CK-2) Serum Total Protein Total Protein Albumin Dukwg-8-Lveihmsvs Vlkwt-8-Pexlilmfi Gamma Globulins PEP Interpretation TSH 6.040 H Arterial Blood Glucose Arterial Blood Ionized Calcium Urine WBC (Auto) Urine Creatinine Urine Total Protein Crossmatch 04/20/21 04/20/21 04/21/21 22:58 22:58 00:14 WBC RBC Hgb Hct MCH RDW Plt Count Seg Neuts % (Manual) Lymphocytes % (Manual) Nucleated RBC % Seg Neutrophils # Man Lymphocytes # (Manual) PT ABG pH POC ABG pCO2 POC ABG pO2 ABG pO2 ABG O2 Saturation ABG Base Excess ABG Hemoglobin ABG Oxyhemoglobin ABG Potassium ABG Chloride ABG Glucose Oxyhemoglobin Carboxyhemoglobin Sodium 172 H* Potassium 3.2 L Chloride 134.2 H Carbon Dioxide 17 L BUN 112 H Creatinine 3.8 H Glucose 803 H* POC Glucose > 600 H Hemoglobin A1c Lactic Acid Calcium 8.3 L Phosphorus Magnesium 3.50 H Transferrin AST ALT Alkaline Phosphatase Total Creatine Kinase CK-MB (CK-2) Serum Total Protein Total Protein Albumin Jsgvo-4-Zyuujgwcy Kdcpf-7-Wnzuadxws Gamma Globulins PEP Interpretation TSH Arterial Blood Glucose Arterial Blood Ionized Calcium Urine WBC (Auto) Urine Creatinine Urine Total Protein Crossmatch 04/21/21 04/21/21 04/21/21 00:22 02:01 03:11 WBC RBC Hgb Hct MCH RDW Plt Count Seg Neuts % (Manual) Lymphocytes % (Manual) Nucleated RBC % Seg Neutrophils # Man Lymphocytes # (Manual) PT ABG pH POC ABG pCO2 POC ABG pO2 ABG pO2 ABG O2 Saturation ABG Base Excess ABG Hemoglobin ABG Oxyhemoglobin ABG Potassium ABG Chloride ABG Glucose Oxyhemoglobin Carboxyhemoglobin Sodium 176 H* 175 H* Potassium 2.9 L* 3.0 L Chloride 139.9 H 136.2 H Carbon Dioxide 17 L 19 L BUN 113 H 112 H Creatinine 3.9 H 3.6 H Glucose 729 H* 582 H* POC Glucose 404 H Hemoglobin A1c Lactic Acid Calcium Phosphorus Magnesium Transferrin AST ALT Alkaline Phosphatase Total Creatine Kinase CK-MB (CK-2) Serum Total Protein Total Protein Albumin Rcaec-5-Qeptbjjto Ktwsp-9-Vuegrmhfj Gamma Globulins PEP Interpretation TSH Arterial Blood Glucose Arterial Blood Ionized Calcium Urine WBC (Auto) Urine Creatinine Urine Total Protein Crossmatch 04/21/21 04/21/21 04/21/21 03:20 03:41 03:41 WBC 14.1 H RBC Hgb Hct MCH 27 L RDW 16.8 H Plt Count 114 L Seg Neuts % (Manual) 97.0 H Lymphocytes % (Manual) 3.0 L Nucleated RBC % 1.0 H Seg Neutrophils # Man 13.7 H Lymphocytes # (Manual) 0.4 L PT ABG pH POC ABG pCO2 POC ABG pO2 ABG pO2 52.3 L ABG O2 Saturation 84.5 L ABG Base Excess -2.9 L ABG Hemoglobin ABG Oxyhemoglobin ABG Potassium ABG Chloride ABG Glucose Oxyhemoglobin 82.9 L Carboxyhemoglobin Sodium 179 H* Potassium 2.9 L* Chloride 138.2 H Carbon Dioxide 20 L BUN 111 H Creatinine 3.7 H Glucose 465 H POC Glucose Hemoglobin A1c Lactic Acid Calcium Phosphorus Magnesium Transferrin AST 73 H ALT 61 H Alkaline Phosphatase 144 H Total Creatine Kinase CK-MB (CK-2) Serum Total Protein Total Protein Albumin 2.5 L Sarvi-0-Ntfwmyden Dpvra-8-Nmzudatee Gamma Globulins PEP Interpretation TSH Arterial Blood Glucose Arterial Blood Ionized Calcium Urine WBC (Auto) Urine Creatinine Urine Total Protein Crossmatch 04/21/21 04/21/21 04/21/21 04:24 05:45 06:47 WBC RBC Hgb Hct MCH RDW Plt Count Seg Neuts % (Manual) Lymphocytes % (Manual) Nucleated RBC % Seg Neutrophils # Man Lymphocytes # (Manual) PT ABG pH POC ABG pCO2 POC ABG pO2 ABG pO2 ABG O2 Saturation ABG Base Excess ABG Hemoglobin ABG Oxyhemoglobin ABG Potassium ABG Chloride ABG Glucose Oxyhemoglobin Carboxyhemoglobin Sodium Potassium Chloride Carbon Dioxide BUN Creatinine Glucose POC Glucose 353 H 280 H 260 H Hemoglobin A1c Lactic Acid Calcium Phosphorus Magnesium Transferrin AST ALT Alkaline Phosphatase Total Creatine Kinase CK-MB (CK-2) Serum Total Protein Total Protein Albumin Srenp-1-Ykakiszrp Dwrwg-6-Zjrkcyljk Gamma Globulins PEP Interpretation TSH Arterial Blood Glucose Arterial Blood Ionized Calcium Urine WBC (Auto) Urine Creatinine Urine Total Protein Crossmatch 04/21/21 04/21/21 04/21/21 08:01 11:11 12:51 WBC RBC Hgb Hct MCH RDW Plt Count Seg Neuts % (Manual) Lymphocytes % (Manual) Nucleated RBC % Seg Neutrophils # Man Lymphocytes # (Manual) PT ABG pH POC ABG pCO2 POC ABG pO2 ABG pO2 ABG O2 Saturation ABG Base Excess ABG Hemoglobin ABG Oxyhemoglobin ABG Potassium ABG Chloride ABG Glucose Oxyhemoglobin Carboxyhemoglobin Sodium Potassium Chloride Carbon Dioxide BUN Creatinine Glucose POC Glucose 68 L 146 H Hemoglobin A1c Lactic Acid Calcium Phosphorus Magnesium Transferrin AST ALT Alkaline Phosphatase Total Creatine Kinase CK-MB (CK-2) Serum Total Protein Total Protein Albumin Hdnhm-4-Pviscyiul Mjdws-3-Ygsizfnih Gamma Globulins PEP Interpretation TSH Arterial Blood Glucose Arterial Blood Ionized Calcium Urine WBC (Auto) Urine Creatinine 44.3 H Urine Total Protein 12 H Crossmatch 04/21/21 04/21/21 04/21/21 13:41 14:40 15:47 WBC RBC Hgb Hct MCH RDW Plt Count Seg Neuts % (Manual) Lymphocytes % (Manual) Nucleated RBC % Seg Neutrophils # Man Lymphocytes # (Manual) PT ABG pH 7.275 L 7.486 H POC ABG pCO2 POC ABG pO2 63.4 L ABG pO2 168.1 H ABG O2 Saturation 99.1 H ABG Base Excess ABG Hemoglobin 8.4 L 8.9 L ABG Oxyhemoglobin 89.5 L ABG Potassium ABG Chloride 108.0 H ABG Glucose 404 H Oxyhemoglobin Carboxyhemoglobin Sodium Potassium Chloride Carbon Dioxide BUN Creatinine Glucose POC Glucose 186 H Hemoglobin A1c Lactic Acid Calcium Phosphorus Magnesium Transferrin AST ALT Alkaline Phosphatase Total Creatine Kinase CK-MB (CK-2) Serum Total Protein Total Protein Albumin Rswpk-6-Epcrwgevq Ilyeg-0-Wcdxlhdax Gamma Globulins PEP Interpretation TSH Arterial Blood Glucose 404 H Arterial Blood Ionized Calcium Urine WBC (Auto) Urine Creatinine Urine Total Protein Crossmatch 04/21/21 04/21/21 04/21/21 16:25 17:57 18:49 WBC RBC Hgb Hct MCH RDW Plt Count Seg Neuts % (Manual) Lymphocytes % (Manual) Nucleated RBC % Seg Neutrophils # Man Lymphocytes # (Manual) PT ABG pH POC ABG pCO2 POC ABG pO2 ABG pO2 ABG O2 Saturation ABG Base Excess ABG Hemoglobin ABG Oxyhemoglobin ABG Potassium ABG Chloride ABG Glucose Oxyhemoglobin Carboxyhemoglobin Sodium 174 H* Potassium 7.2 H* D Chloride 138.2 H Carbon Dioxide 21 L BUN 99 H Creatinine 4.0 H Glucose 157 H POC Glucose 172 H 143 H Hemoglobin A1c Lactic Acid Calcium Phosphorus Magnesium Transferrin AST 134 H ALT 71 H Alkaline Phosphatase 135 H Total Creatine Kinase 3504 H CK-MB (CK-2) Serum Total Protein Total Protein Albumin 2.2 L Iwanp-3-Iwlahjtcz Cwbtk-9-Oqwuzopnt Gamma Globulins PEP Interpretation TSH Arterial Blood Glucose Arterial Blood Ionized Calcium Urine WBC (Auto) Urine Creatinine Urine Total Protein Crossmatch 04/21/21 04/21/21 04/21/21 19:10 20:26 20:53 WBC RBC Hgb Hct MCH RDW Plt Count Seg Neuts % (Manual) Lymphocytes % (Manual) Nucleated RBC % Seg Neutrophils # Man Lymphocytes # (Manual) PT ABG pH POC ABG pCO2 POC ABG pO2 ABG pO2 ABG O2 Saturation ABG Base Excess ABG Hemoglobin ABG Oxyhemoglobin ABG Potassium ABG Chloride ABG Glucose Oxyhemoglobin Carboxyhemoglobin Sodium Potassium Chloride Carbon Dioxide BUN Creatinine Glucose POC Glucose 126 H 190 H 116 H Hemoglobin A1c Lactic Acid Calcium Phosphorus Magnesium Transferrin AST ALT Alkaline Phosphatase Total Creatine Kinase CK-MB (CK-2) Serum Total Protein Total Protein Albumin Mfjgl-6-Yumzomofw Udnae-9-Pwbzdlsbi Gamma Globulins PEP Interpretation TSH Arterial Blood Glucose Arterial Blood Ionized Calcium Urine WBC (Auto) Urine Creatinine Urine Total Protein Crossmatch 04/21/21 04/21/21 04/21/21 21:52 22:55 23:00 WBC RBC Hgb Hct MCH RDW Plt Count Seg Neuts % (Manual) Lymphocytes % (Manual) Nucleated RBC % Seg Neutrophils # Man Lymphocytes # (Manual) PT ABG pH POC ABG pCO2 POC ABG pO2 ABG pO2 ABG O2 Saturation ABG Base Excess ABG Hemoglobin ABG Oxyhemoglobin ABG Potassium ABG Chloride ABG Glucose Oxyhemoglobin Carboxyhemoglobin Sodium 176 H* Potassium Chloride 140.0 H Carbon Dioxide 20 L BUN 98 H Creatinine 3.9 H Glucose 206 H POC Glucose 135 H 158 H Hemoglobin A1c Lactic Acid Calcium Phosphorus Magnesium Transferrin AST ALT Alkaline Phosphatase Total Creatine Kinase 3240 H CK-MB (CK-2) Serum Total Protein Total Protein Albumin Logwt-4-Dmzbraahs Tgzxr-2-Zlocretfi Gamma Globulins PEP Interpretation TSH Arterial Blood Glucose Arterial Blood Ionized Calcium Urine WBC (Auto) Urine Creatinine Urine Total Protein Crossmatch 04/22/21 04/22/21 04/22/21 00:01 00:39 00:58 WBC RBC Hgb Hct MCH RDW Plt Count Seg Neuts % (Manual) Lymphocytes % (Manual) Nucleated RBC % Seg Neutrophils # Man Lymphocytes # (Manual) PT ABG pH POC ABG pCO2 POC ABG pO2 ABG pO2 ABG O2 Saturation ABG Base Excess ABG Hemoglobin ABG Oxyhemoglobin ABG Potassium ABG Chloride ABG Glucose Oxyhemoglobin Carboxyhemoglobin Sodium 171 H* Potassium Chloride Carbon Dioxide BUN Creatinine Glucose POC Glucose 182 H 176 H Hemoglobin A1c Lactic Acid Calcium Phosphorus Magnesium Transferrin AST ALT Alkaline Phosphatase Total Creatine Kinase CK-MB (CK-2) Serum Total Protein Total Protein Albumin Nybmd-3-Abrfuidju Eidco-2-Ewuvflwgd Gamma Globulins PEP Interpretation TSH Arterial Blood Glucose Arterial Blood Ionized Calcium Urine WBC (Auto) Urine Creatinine Urine Total Protein Crossmatch 04/22/21 04/22/21 04/22/21 01:04 04:52 06:07 WBC 11.2 H RBC Hgb Hct 44.3 H MCH 27 L RDW 17.1 H Plt Count 86 L Seg Neuts % (Manual) 86.0 H Lymphocytes % (Manual) 13.0 L Nucleated RBC % Seg Neutrophils # Man 9.6 H Lymphocytes # (Manual) PT ABG pH POC ABG pCO2 POC ABG pO2 ABG pO2 ABG O2 Saturation ABG Base Excess ABG Hemoglobin ABG Oxyhemoglobin ABG Potassium ABG Chloride ABG Glucose Oxyhemoglobin Carboxyhemoglobin Sodium Potassium Chloride Carbon Dioxide BUN Creatinine Glucose POC Glucose 143 H 206 H Hemoglobin A1c Lactic Acid Calcium Phosphorus Magnesium Transferrin AST ALT Alkaline Phosphatase Total Creatine Kinase CK-MB (CK-2) Serum Total Protein Total Protein Albumin Lorxn-5-Vszsatnbq Xyddj-8-Ddwtfxaeu Gamma Globulins PEP Interpretation TSH Arterial Blood Glucose Arterial Blood Ionized Calcium Urine WBC (Auto) Urine Creatinine Urine Total Protein Crossmatch 04/22/21 04/22/21 04/22/21 06:09 07:18 08:59 WBC RBC Hgb Hct MCH RDW Plt Count Seg Neuts % (Manual) Lymphocytes % (Manual) Nucleated RBC % Seg Neutrophils # Man Lymphocytes # (Manual) PT ABG pH POC ABG pCO2 POC ABG pO2 ABG pO2 ABG O2 Saturation ABG Base Excess ABG Hemoglobin ABG Oxyhemoglobin ABG Potassium ABG Chloride ABG Glucose Oxyhemoglobin Carboxyhemoglobin Sodium Potassium Chloride Carbon Dioxide BUN Creatinine Glucose POC Glucose 163 H 158 H Hemoglobin A1c Lactic Acid Calcium Phosphorus Magnesium Transferrin AST ALT Alkaline Phosphatase Total Creatine Kinase 3105 H CK-MB (CK-2) Serum Total Protein Total Protein Albumin Xjugn-0-Jwpdwafyx Iogiv-5-Qxjvurniz Gamma Globulins PEP Interpretation TSH Arterial Blood Glucose Arterial Blood Ionized Calcium Urine WBC (Auto) Urine Creatinine Urine Total Protein Crossmatch 04/22/21 04/22/21 04/22/21 08:59 08:59 09:44 WBC RBC Hgb Hct MCH RDW Plt Count Seg Neuts % (Manual) Lymphocytes % (Manual) Nucleated RBC % Seg Neutrophils # Man Lymphocytes # (Manual) PT ABG pH POC ABG pCO2 POC ABG pO2 ABG pO2 ABG O2 Saturation ABG Base Excess ABG Hemoglobin ABG Oxyhemoglobin ABG Potassium ABG Chloride ABG Glucose Oxyhemoglobin Carboxyhemoglobin Sodium 169 H* Potassium 3.5 L Chloride 134.5 H Carbon Dioxide 20 L BUN 95 H Creatinine 3.6 H Glucose 151 H POC Glucose Hemoglobin A1c Lactic Acid Calcium Phosphorus Magnesium 2.80 H Transferrin AST 121 H ALT 75 H Alkaline Phosphatase 137 H Total Creatine Kinase CK-MB (CK-2) Serum Total Protein 5.5 L Total Protein 6.0 L Albumin 2.8 L 2.1 L Jffga-0-Nvjlrqotm 0.6 H Vdada-0-Peelotgyl 1.0 H Gamma Globulins 0.6 L PEP Interpretation see below H TSH Arterial Blood Glucose Arterial Blood Ionized Calcium Urine WBC (Auto) Urine Creatinine Urine Total Protein Crossmatch 04/22/21 04/22/21 04/22/21 10:24 12:20 13:19 WBC RBC Hgb Hct MCH RDW Plt Count Seg Neuts % (Manual) Lymphocytes % (Manual) Nucleated RBC % Seg Neutrophils # Man Lymphocytes # (Manual) PT ABG pH POC ABG pCO2 POC ABG pO2 ABG pO2 ABG O2 Saturation ABG Base Excess ABG Hemoglobin ABG Oxyhemoglobin ABG Potassium ABG Chloride ABG Glucose Oxyhemoglobin Carboxyhemoglobin Sodium Potassium Chloride Carbon Dioxide BUN Creatinine Glucose POC Glucose 107 H 131 H 147 H Hemoglobin A1c Lactic Acid Calcium Phosphorus Magnesium Transferrin AST ALT Alkaline Phosphatase Total Creatine Kinase CK-MB (CK-2) Serum Total Protein Total Protein Albumin Efaxc-0-Mmubvmpuj Dnicg-7-Eolssebre Gamma Globulins PEP Interpretation TSH Arterial Blood Glucose Arterial Blood Ionized Calcium Urine WBC (Auto) Urine Creatinine Urine Total Protein Crossmatch 04/22/21 04/22/21 04/22/21 14:16 15:22 15:55 WBC RBC Hgb Hct MCH RDW Plt Count Seg Neuts % (Manual) Lymphocytes % (Manual) Nucleated RBC % Seg Neutrophils # Man Lymphocytes # (Manual) PT ABG pH POC ABG pCO2 POC ABG pO2 ABG pO2 ABG O2 Saturation ABG Base Excess ABG Hemoglobin ABG Oxyhemoglobin ABG Potassium ABG Chloride ABG Glucose Oxyhemoglobin Carboxyhemoglobin Sodium 169 H* Potassium Chloride 133.5 H Carbon Dioxide 19 L BUN 94 H Creatinine 3.8 H Glucose 150 H POC Glucose 154 H 136 H Hemoglobin A1c Lactic Acid Calcium Phosphorus Magnesium Transferrin AST ALT Alkaline Phosphatase Total Creatine Kinase CK-MB (CK-2) Serum Total Protein Total Protein Albumin Pyumb-9-Ybnljcupu Almce-4-Bwwlhislx Gamma Globulins PEP Interpretation TSH Arterial Blood Glucose Arterial Blood Ionized Calcium Urine WBC (Auto) Urine Creatinine Urine Total Protein Crossmatch 04/22/21 04/22/21 04/22/21 15:55 16:22 18:11 WBC RBC Hgb Hct MCH RDW Plt Count Seg Neuts % (Manual) Lymphocytes % (Manual) Nucleated RBC % Seg Neutrophils # Man Lymphocytes # (Manual) PT ABG pH POC ABG pCO2 POC ABG pO2 ABG pO2 ABG O2 Saturation ABG Base Excess ABG Hemoglobin ABG Oxyhemoglobin ABG Potassium ABG Chloride ABG Glucose Oxyhemoglobin Carboxyhemoglobin Sodium Potassium Chloride Carbon Dioxide BUN Creatinine Glucose POC Glucose 140 H Hemoglobin A1c 17.1 H Lactic Acid Calcium Phosphorus Magnesium Transferrin AST ALT Alkaline Phosphatase Total Creatine Kinase 2497 H CK-MB (CK-2) Serum Total Protein Total Protein Albumin Oveve-7-Tksnsygxt Kodvj-4-Tfzpmhvsv Gamma Globulins PEP Interpretation TSH Arterial Blood Glucose Arterial Blood Ionized Calcium Urine WBC (Auto) Urine Creatinine Urine Total Protein Crossmatch 04/22/21 04/22/21 04/23/21 18:26 23:19 00:27 WBC RBC Hgb Hct MCH RDW Plt Count Seg Neuts % (Manual) Lymphocytes % (Manual) Nucleated RBC % Seg Neutrophils # Man Lymphocytes # (Manual) PT ABG pH POC ABG pCO2 POC ABG pO2 ABG pO2 ABG O2 Saturation ABG Base Excess ABG Hemoglobin ABG Oxyhemoglobin ABG Potassium ABG Chloride ABG Glucose Oxyhemoglobin Carboxyhemoglobin Sodium 162 H* Potassium Chloride Carbon Dioxide BUN Creatinine Glucose POC Glucose 146 H 188 H Hemoglobin A1c Lactic Acid Calcium Phosphorus Magnesium Transferrin AST ALT Alkaline Phosphatase Total Creatine Kinase CK-MB (CK-2) Serum Total Protein Total Protein Albumin Dopwo-6-Ovtlazytu Jpylv-2-Zlfrekvcr Gamma Globulins PEP Interpretation TSH Arterial Blood Glucose Arterial Blood Ionized Calcium Urine WBC (Auto) Urine Creatinine Urine Total Protein Crossmatch 04/23/21 04/23/21 04/23/21 05:23 07:50 08:13 WBC RBC Hgb Hct MCH RDW Plt Count Seg Neuts % (Manual) Lymphocytes % (Manual) Nucleated RBC % Seg Neutrophils # Man Lymphocytes # (Manual) PT ABG pH POC ABG pCO2 POC ABG pO2 ABG pO2 ABG O2 Saturation ABG Base Excess ABG Hemoglobin ABG Oxyhemoglobin ABG Potassium ABG Chloride ABG Glucose Oxyhemoglobin Carboxyhemoglobin Sodium Potassium Chloride Carbon Dioxide BUN Creatinine Glucose POC Glucose 212 H 239 H Hemoglobin A1c Lactic Acid Calcium Phosphorus Magnesium Transferrin AST ALT Alkaline Phosphatase Total Creatine Kinase 1803 H CK-MB (CK-2) Serum Total Protein Total Protein Albumin Nvtwh-2-Xdyzgjpdc Bcovi-9-Gpgoojyre Gamma Globulins PEP Interpretation TSH Arterial Blood Glucose Arterial Blood Ionized Calcium Urine WBC (Auto) Urine Creatinine Urine Total Protein Crossmatch 04/23/21 04/23/21 04/23/21 08:13 08:13 12:06 WBC 11.9 H RBC Hgb Hct MCH 26 L RDW 16.5 H Plt Count 72 L Seg Neuts % (Manual) 80.0 H Lymphocytes % (Manual) 5.0 L Nucleated RBC % Seg Neutrophils # Man 9.5 H Lymphocytes # (Manual) 0.6 L PT ABG pH POC ABG pCO2 POC ABG pO2 ABG pO2 ABG O2 Saturation ABG Base Excess ABG Hemoglobin ABG Oxyhemoglobin ABG Potassium ABG Chloride ABG Glucose Oxyhemoglobin Carboxyhemoglobin Sodium 164 H* Potassium Chloride 128.0 H Carbon Dioxide 21 L BUN 93 H Creatinine 3.8 H Glucose 293 H POC Glucose 311 H Hemoglobin A1c Lactic Acid Calcium Phosphorus Magnesium Transferrin AST 99 H ALT 70 H Alkaline Phosphatase 147 H Total Creatine Kinase CK-MB (CK-2) Serum Total Protein Total Protein 6.1 L Albumin 2.0 L Mapse-7-Cclqgwgfd Qvasx-3-Bzxowxyqt Gamma Globulins PEP Interpretation TSH Arterial Blood Glucose Arterial Blood Ionized Calcium Urine WBC (Auto) Urine Creatinine Urine Total Protein Crossmatch 04/23/21 04/23/21 04/24/21 17:35 18:17 02:13 WBC RBC Hgb Hct MCH RDW Plt Count Seg Neuts % (Manual) Lymphocytes % (Manual) Nucleated RBC % Seg Neutrophils # Man Lymphocytes # (Manual) PT ABG pH POC ABG pCO2 POC ABG pO2 ABG pO2 ABG O2 Saturation ABG Base Excess ABG Hemoglobin ABG Oxyhemoglobin ABG Potassium ABG Chloride ABG Glucose Oxyhemoglobin Carboxyhemoglobin Sodium 160 H 160 H Potassium Chloride Carbon Dioxide BUN Creatinine Glucose POC Glucose 370 H Hemoglobin A1c Lactic Acid Calcium Phosphorus Magnesium Transferrin AST ALT Alkaline Phosphatase Total Creatine Kinase CK-MB (CK-2) Serum Total Protein Total Protein Albumin Azbhm-1-Dpsvcysyr Aekvm-0-Oowivyckc Gamma Globulins PEP Interpretation TSH Arterial Blood Glucose Arterial Blood Ionized Calcium Urine WBC (Auto) Urine Creatinine Urine Total Protein Crossmatch 04/24/21 04/24/21 04/24/21 06:00 06:00 07:46 WBC RBC Hgb Hct MCH 27 L RDW 17.0 H Plt Count 58 L Seg Neuts % (Manual) Lymphocytes % (Manual) 2.0 L Nucleated RBC % Seg Neutrophils # Man 8.9 H Lymphocytes # (Manual) 0.2 L PT ABG pH POC ABG pCO2 POC ABG pO2 ABG pO2 ABG O2 Saturation ABG Base Excess ABG Hemoglobin ABG Oxyhemoglobin ABG Potassium ABG Chloride ABG Glucose Oxyhemoglobin Carboxyhemoglobin Sodium Potassium Chloride Carbon Dioxide BUN Creatinine Glucose POC Glucose 395 H Hemoglobin A1c Lactic Acid Calcium Phosphorus Magnesium 2.90 H Transferrin AST ALT Alkaline Phosphatase Total Creatine Kinase CK-MB (CK-2) Serum Total Protein Total Protein Albumin Dxryg-7-Jikwcgpet Geqew-0-Kybepafds Gamma Globulins PEP Interpretation TSH Arterial Blood Glucose Arterial Blood Ionized Calcium Urine WBC (Auto) Urine Creatinine Urine Total Protein Crossmatch 04/24/21 04/24/21 04/24/21 08:15 11:34 13:11 WBC RBC Hgb Hct MCH RDW Plt Count Seg Neuts % (Manual) Lymphocytes % (Manual) Nucleated RBC % Seg Neutrophils # Man Lymphocytes # (Manual) PT ABG pH POC ABG pCO2 POC ABG pO2 ABG pO2 ABG O2 Saturation ABG Base Excess ABG Hemoglobin ABG Oxyhemoglobin ABG Potassium ABG Chloride ABG Glucose Oxyhemoglobin Carboxyhemoglobin Sodium 159 H Potassium Chloride 125.6 H Carbon Dioxide 19 L BUN 94 H Creatinine 3.7 H Glucose 514 H* POC Glucose 422 H 384 H Hemoglobin A1c Lactic Acid Calcium Phosphorus Magnesium Transferrin AST ALT 61 H Alkaline Phosphatase 155 H Total Creatine Kinase CK-MB (CK-2) Serum Total Protein Total Protein 6.1 L Albumin 1.5 L Khoih-6-Rovxrnast Oanxl-4-Iiknedqcf Gamma Globulins PEP Interpretation TSH Arterial Blood Glucose Arterial Blood Ionized Calcium Urine WBC (Auto) Urine Creatinine Urine Total Protein Crossmatch 04/24/21 04/24/21 04/24/21 14:01 15:03 17:29 WBC RBC Hgb Hct MCH RDW Plt Count Seg Neuts % (Manual) Lymphocytes % (Manual) Nucleated RBC % Seg Neutrophils # Man Lymphocytes # (Manual) PT ABG pH POC ABG pCO2 POC ABG pO2 ABG pO2 ABG O2 Saturation ABG Base Excess ABG Hemoglobin ABG Oxyhemoglobin ABG Potassium ABG Chloride ABG Glucose Oxyhemoglobin Carboxyhemoglobin Sodium Potassium Chloride Carbon Dioxide BUN Creatinine Glucose POC Glucose 423 H 418 H Hemoglobin A1c Lactic Acid Calcium Phosphorus Magnesium Transferrin 112 L AST ALT Alkaline Phosphatase Total Creatine Kinase CK-MB (CK-2) Serum Total Protein Total Protein Albumin Qcrkp-5-Spgolxvey Uxako-9-Nitgjllnm Gamma Globulins PEP Interpretation TSH Arterial Blood Glucose Arterial Blood Ionized Calcium Urine WBC (Auto) Urine Creatinine Urine Total Protein Crossmatch 04/24/21 04/24/21 04/24/21 18:28 19:41 22:33 WBC RBC Hgb Hct MCH RDW Plt Count Seg Neuts % (Manual) Lymphocytes % (Manual) Nucleated RBC % Seg Neutrophils # Man Lymphocytes # (Manual) PT ABG pH POC ABG pCO2 POC ABG pO2 ABG pO2 ABG O2 Saturation ABG Base Excess ABG Hemoglobin ABG Oxyhemoglobin ABG Potassium ABG Chloride ABG Glucose Oxyhemoglobin Carboxyhemoglobin Sodium Potassium Chloride Carbon Dioxide BUN Creatinine Glucose POC Glucose 335 H 321 H 349 H Hemoglobin A1c Lactic Acid Calcium Phosphorus Magnesium Transferrin AST ALT Alkaline Phosphatase Total Creatine Kinase CK-MB (CK-2) Serum Total Protein Total Protein Albumin Bmjff-1-Uaitkmilq Qnupi-6-Vipvtdppk Gamma Globulins PEP Interpretation TSH Arterial Blood Glucose Arterial Blood Ionized Calcium Urine WBC (Auto) Urine Creatinine Urine Total Protein Crossmatch 04/25/21 04/25/21 04/25/21 01:28 02:28 03:25 WBC RBC Hgb Hct MCH RDW Plt Count Seg Neuts % (Manual) Lymphocytes % (Manual) Nucleated RBC % Seg Neutrophils # Man Lymphocytes # (Manual) PT ABG pH POC ABG pCO2 POC ABG pO2 ABG pO2 ABG O2 Saturation ABG Base Excess ABG Hemoglobin ABG Oxyhemoglobin ABG Potassium ABG Chloride ABG Glucose Oxyhemoglobin Carboxyhemoglobin Sodium Potassium Chloride Carbon Dioxide BUN Creatinine Glucose POC Glucose 283 H 247 H 196 H Hemoglobin A1c Lactic Acid Calcium Phosphorus Magnesium Transferrin AST ALT Alkaline Phosphatase Total Creatine Kinase CK-MB (CK-2) Serum Total Protein Total Protein Albumin Tkqxm-7-Pdwsslrzv Ukgsu-2-Vmwavouhw Gamma Globulins PEP Interpretation TSH Arterial Blood Glucose Arterial Blood Ionized Calcium Urine WBC (Auto) Urine Creatinine Urine Total Protein Crossmatch 04/25/21 04/25/21 04/25/21 04:22 05:40 05:45 WBC RBC Hgb Hct MCH 27 L RDW 17.0 H Plt Count 64 L Seg Neuts % (Manual) 84.0 H Lymphocytes % (Manual) 6.0 L Nucleated RBC % 1.0 H Seg Neutrophils # Man Lymphocytes # (Manual) 0.4 L PT ABG pH POC ABG pCO2 POC ABG pO2 ABG pO2 ABG O2 Saturation ABG Base Excess ABG Hemoglobin ABG Oxyhemoglobin ABG Potassium ABG Chloride ABG Glucose Oxyhemoglobin Carboxyhemoglobin Sodium Potassium Chloride Carbon Dioxide BUN Creatinine Glucose POC Glucose 207 H 204 H Hemoglobin A1c Lactic Acid Calcium Phosphorus Magnesium Transferrin AST ALT Alkaline Phosphatase Total Creatine Kinase CK-MB (CK-2) Serum Total Protein Total Protein Albumin Trsal-0-Bktneqxom Uxqdm-4-Pyqnuyhak Gamma Globulins PEP Interpretation TSH Arterial Blood Glucose Arterial Blood Ionized Calcium Urine WBC (Auto) Urine Creatinine Urine Total Protein Crossmatch 04/25/21 04/25/21 04/25/21 06:43 07:37 08:11 WBC RBC Hgb Hct MCH RDW Plt Count Seg Neuts % (Manual) Lymphocytes % (Manual) Nucleated RBC % Seg Neutrophils # Man Lymphocytes # (Manual) PT ABG pH POC ABG pCO2 POC ABG pO2 ABG pO2 ABG O2 Saturation ABG Base Excess ABG Hemoglobin ABG Oxyhemoglobin ABG Potassium ABG Chloride ABG Glucose Oxyhemoglobin Carboxyhemoglobin Sodium 148 H D Potassium Chloride 115.7 H Carbon Dioxide 21 L BUN 83 H Creatinine 3.6 H Glucose 247 H POC Glucose 238 H 201 H Hemoglobin A1c Lactic Acid Calcium Phosphorus Magnesium Transferrin AST 63 H ALT 62 H Alkaline Phosphatase 143 H Total Creatine Kinase CK-MB (CK-2) Serum Total Protein Total Protein 5.4 L Albumin 1.4 L Lxvod-6-Gmbzckmng Zsase-0-Xqgerbjfz Gamma Globulins PEP Interpretation TSH Arterial Blood Glucose Arterial Blood Ionized Calcium Urine WBC (Auto) Urine Creatinine Urine Total Protein Crossmatch 04/25/21 04/25/21 04/25/21 08:11 08:41 09:22 WBC RBC Hgb Hct MCH RDW Plt Count Seg Neuts % (Manual) Lymphocytes % (Manual) Nucleated RBC % Seg Neutrophils # Man Lymphocytes # (Manual) PT ABG pH POC ABG pCO2 POC ABG pO2 ABG pO2 ABG O2 Saturation ABG Base Excess ABG Hemoglobin ABG Oxyhemoglobin ABG Potassium ABG Chloride ABG Glucose Oxyhemoglobin Carboxyhemoglobin Sodium Potassium Chloride Carbon Dioxide BUN Creatinine Glucose POC Glucose 220 H 228 H Hemoglobin A1c Lactic Acid Calcium Phosphorus Magnesium 2.50 H Transferrin AST ALT Alkaline Phosphatase Total Creatine Kinase CK-MB (CK-2) Serum Total Protein Total Protein Albumin Qnznm-3-Euqyjfgak Victp-3-Imdlowkbo Gamma Globulins PEP Interpretation TSH Arterial Blood Glucose Arterial Blood Ionized Calcium Urine WBC (Auto) Urine Creatinine Urine Total Protein Crossmatch 04/25/21 04/25/21 04/25/21 10:31 11:44 12:23 WBC RBC Hgb Hct MCH RDW Plt Count Seg Neuts % (Manual) Lymphocytes % (Manual) Nucleated RBC % Seg Neutrophils # Man Lymphocytes # (Manual) PT ABG pH POC ABG pCO2 POC ABG pO2 ABG pO2 ABG O2 Saturation ABG Base Excess ABG Hemoglobin ABG Oxyhemoglobin ABG Potassium ABG Chloride ABG Glucose Oxyhemoglobin Carboxyhemoglobin Sodium Potassium Chloride Carbon Dioxide BUN Creatinine Glucose POC Glucose 215 H 191 H 229 H Hemoglobin A1c Lactic Acid Calcium Phosphorus Magnesium Transferrin AST ALT Alkaline Phosphatase Total Creatine Kinase CK-MB (CK-2) Serum Total Protein Total Protein Albumin Iqaua-4-Uqriwngej Trccn-6-Uhldcaekm Gamma Globulins PEP Interpretation TSH Arterial Blood Glucose Arterial Blood Ionized Calcium Urine WBC (Auto) Urine Creatinine Urine Total Protein Crossmatch 04/25/21 04/25/21 04/25/21 13:48 14:11 18:01 WBC RBC Hgb Hct MCH RDW Plt Count Seg Neuts % (Manual) Lymphocytes % (Manual) Nucleated RBC % Seg Neutrophils # Man Lymphocytes # (Manual) PT ABG pH POC ABG pCO2 POC ABG pO2 ABG pO2 ABG O2 Saturation ABG Base Excess ABG Hemoglobin ABG Oxyhemoglobin ABG Potassium ABG Chloride ABG Glucose Oxyhemoglobin Carboxyhemoglobin Sodium Potassium Chloride Carbon Dioxide BUN Creatinine Glucose POC Glucose 177 H 161 H 264 H Hemoglobin A1c Lactic Acid Calcium Phosphorus Magnesium Transferrin AST ALT Alkaline Phosphatase Total Creatine Kinase CK-MB (CK-2) Serum Total Protein Total Protein Albumin Eawvx-0-Wmswdthqj Jidya-9-Icrrasmjg Gamma Globulins PEP Interpretation TSH Arterial Blood Glucose Arterial Blood Ionized Calcium Urine WBC (Auto) Urine Creatinine Urine Total Protein Crossmatch 04/25/21 04/26/21 04/26/21 21:31 01:19 06:31 WBC RBC Hgb Hct MCH RDW Plt Count Seg Neuts % (Manual) Lymphocytes % (Manual) Nucleated RBC % Seg Neutrophils # Man Lymphocytes # (Manual) PT ABG pH POC ABG pCO2 POC ABG pO2 ABG pO2 ABG O2 Saturation ABG Base Excess ABG Hemoglobin ABG Oxyhemoglobin ABG Potassium ABG Chloride ABG Glucose Oxyhemoglobin Carboxyhemoglobin Sodium Potassium Chloride Carbon Dioxide BUN Creatinine Glucose POC Glucose 371 H 356 H 428 H Hemoglobin A1c Lactic Acid Calcium Phosphorus Magnesium Transferrin AST ALT Alkaline Phosphatase Total Creatine Kinase CK-MB (CK-2) Serum Total Protein Total Protein Albumin Wjvla-6-Rmjjhmrbj Pfdos-6-Sasahrlvp Gamma Globulins PEP Interpretation TSH Arterial Blood Glucose Arterial Blood Ionized Calcium Urine WBC (Auto) Urine Creatinine Urine Total Protein Crossmatch 04/26/21 04/26/21 04/26/21 09:13 09:33 09:33 WBC RBC Hgb Hct MCH 27 L RDW 16.9 H Plt Count 58 L Seg Neuts % (Manual) 77.0 H Lymphocytes % (Manual) 4.0 L Nucleated RBC % 2.0 H Seg Neutrophils # Man Lymphocytes # (Manual) 0.3 L PT ABG pH POC ABG pCO2 POC ABG pO2 ABG pO2 ABG O2 Saturation ABG Base Excess ABG Hemoglobin ABG Oxyhemoglobin ABG Potassium ABG Chloride ABG Glucose Oxyhemoglobin Carboxyhemoglobin Sodium Potassium Chloride Carbon Dioxide BUN Creatinine Glucose POC Glucose 454 H Hemoglobin A1c Lactic Acid Calcium Phosphorus 5.60 H D Magnesium Transferrin AST ALT Alkaline Phosphatase Total Creatine Kinase CK-MB (CK-2) Serum Total Protein Total Protein Albumin Ueckf-0-Pqnolpjob Mbyhn-0-Aupvxupzn Gamma Globulins PEP Interpretation TSH Arterial Blood Glucose Arterial Blood Ionized Calcium Urine WBC (Auto) Urine Creatinine Urine Total Protein Crossmatch 04/26/21 04/26/21 04/26/21 09:33 11:00 12:36 WBC RBC Hgb Hct MCH RDW Plt Count Seg Neuts % (Manual) Lymphocytes % (Manual) Nucleated RBC % Seg Neutrophils # Man Lymphocytes # (Manual) PT ABG pH 7.281 L POC ABG pCO2 POC ABG pO2 66.4 L ABG pO2 ABG O2 Saturation ABG Base Excess ABG Hemoglobin 10.9 L ABG Oxyhemoglobin 91 L ABG Potassium ABG Chloride ABG Glucose 521 H Oxyhemoglobin Carboxyhemoglobin Sodium Potassium Chloride Carbon Dioxide 19 L BUN 98 H Creatinine 3.8 H Glucose 530 H* POC Glucose 414 H Hemoglobin A1c Lactic Acid Calcium 8.1 L Phosphorus Magnesium Transferrin AST 60 H ALT 72 H Alkaline Phosphatase 168 H Total Creatine Kinase CK-MB (CK-2) Serum Total Protein Total Protein 4.6 L Albumin 1.7 L Rjejs-3-Uyfipbhha Ugeat-9-Rkufsncbi Gamma Globulins PEP Interpretation TSH Arterial Blood Glucose 521 H Arterial Blood Ionized Calcium Urine WBC (Auto) Urine Creatinine Urine Total Protein Crossmatch 04/26/21 04/26/21 04/26/21 15:39 16:18 21:14 WBC RBC Hgb Hct MCH RDW Plt Count Seg Neuts % (Manual) Lymphocytes % (Manual) Nucleated RBC % Seg Neutrophils # Man Lymphocytes # (Manual) PT ABG pH 7.275 L POC ABG pCO2 POC ABG pO2 63.4 L ABG pO2 ABG O2 Saturation ABG Base Excess ABG Hemoglobin 8.4 L ABG Oxyhemoglobin 89.5 L ABG Potassium ABG Chloride 108.0 H ABG Glucose 404 H Oxyhemoglobin Carboxyhemoglobin Sodium Potassium Chloride Carbon Dioxide BUN Creatinine Glucose POC Glucose 324 H 242 H Hemoglobin A1c Lactic Acid Calcium Phosphorus Magnesium Transferrin AST ALT Alkaline Phosphatase Total Creatine Kinase CK-MB (CK-2) Serum Total Protein Total Protein Albumin Cezzw-1-Jffdbuvpo Vpcpd-4-Urwvuvnym Gamma Globulins PEP Interpretation TSH Arterial Blood Glucose 404 H Arterial Blood Ionized Calcium Urine WBC (Auto) Urine Creatinine Urine Total Protein Crossmatch 04/27/21 04/27/21 04/27/21 00:07 05:47 06:23 WBC RBC Hgb Hct MCH RDW Plt Count Seg Neuts % (Manual) Lymphocytes % (Manual) Nucleated RBC % Seg Neutrophils # Man Lymphocytes # (Manual) PT ABG pH POC ABG pCO2 POC ABG pO2 ABG pO2 ABG O2 Saturation ABG Base Excess ABG Hemoglobin ABG Oxyhemoglobin ABG Potassium ABG Chloride ABG Glucose Oxyhemoglobin Carboxyhemoglobin Sodium Potassium Chloride Carbon Dioxide BUN Creatinine Glucose POC Glucose 282 H 214 H 187 H Hemoglobin A1c Lactic Acid Calcium Phosphorus Magnesium Transferrin AST ALT Alkaline Phosphatase Total Creatine Kinase CK-MB (CK-2) Serum Total Protein Total Protein Albumin Uovqk-0-Hdkapqgwg Coart-6-Afmaxivpt Gamma Globulins PEP Interpretation TSH Arterial Blood Glucose Arterial Blood Ionized Calcium Urine WBC (Auto) Urine Creatinine Urine Total Protein Crossmatch 04/27/21 04/27/21 04/27/21 07:43 08:30 11:54 WBC RBC Hgb Hct MCH RDW Plt Count Seg Neuts % (Manual) Lymphocytes % (Manual) Nucleated RBC % Seg Neutrophils # Man Lymphocytes # (Manual) PT ABG pH 7.309 L POC ABG pCO2 POC ABG pO2 70.6 L ABG pO2 ABG O2 Saturation ABG Base Excess ABG Hemoglobin 9.16 L ABG Oxyhemoglobin 92.4 L ABG Potassium ABG Chloride ABG Glucose Oxyhemoglobin Carboxyhemoglobin Sodium Potassium Chloride 110.1 H Carbon Dioxide 15 L BUN 109 H Creatinine 4.3 H Glucose 218 H POC Glucose 147 H Hemoglobin A1c Lactic Acid Calcium Phosphorus Magnesium Transferrin AST 53 H ALT Alkaline Phosphatase 148 H Total Creatine Kinase 1000 H CK-MB (CK-2) Serum Total Protein Total Protein 5.2 L Albumin 1.2 L Hujju-7-Rgaxmfvsk Wyrsi-8-[place] Gamma Globulins PEP Interpretation TSH Arterial Blood Glucose Arterial Blood Ionized Calcium Urine WBC (Auto) Urine Creatinine Urine Total Protein Crossmatch 04/27/21 04/27/21 04/28/21 21:08 23:28 04:00 WBC 12.6 H RBC 3.59 L Hgb 9.4 L Hct MCH 26 L RDW 16.6 H Plt Count 111 L Seg Neuts % (Manual) Lymphocytes % (Manual) 1.0 L Nucleated RBC % 4.0 H Seg Neutrophils # Man 11.6 H Lymphocytes # (Manual) 0.1 L PT ABG pH POC ABG pCO2 POC ABG pO2 ABG pO2 ABG O2 Saturation ABG Base Excess ABG Hemoglobin ABG Oxyhemoglobin ABG Potassium ABG Chloride ABG Glucose Oxyhemoglobin Carboxyhemoglobin Sodium Potassium Chloride Carbon Dioxide BUN Creatinine Glucose POC Glucose 136 H 201 H Hemoglobin A1c Lactic Acid Calcium Phosphorus Magnesium Transferrin AST ALT Alkaline Phosphatase Total Creatine Kinase CK-MB (CK-2) Serum Total Protein Total Protein Albumin Kithh-6-Yszwtqgkz Plyje-7-Gidpcabta Gamma Globulins PEP Interpretation TSH Arterial Blood Glucose Arterial Blood Ionized Calcium Urine WBC (Auto) Urine Creatinine Urine Total Protein Crossmatch 04/28/21 04/28/21 04/28/21 04:00 05:00 05:08 WBC RBC Hgb Hct MCH RDW Plt Count Seg Neuts % (Manual) Lymphocytes % (Manual) Nucleated RBC % Seg Neutrophils # Man Lymphocytes # (Manual) PT 15.3 H ABG pH POC ABG pCO2 POC ABG pO2 ABG pO2 ABG O2 Saturation ABG Base Excess ABG Hemoglobin ABG Oxyhemoglobin ABG Potassium ABG Chloride ABG Glucose Oxyhemoglobin Carboxyhemoglobin Sodium 147 H Potassium 3.5 L D Chloride Carbon Dioxide BUN 79 H Creatinine 3.8 H Glucose 194 H POC Glucose 183 H Hemoglobin A1c Lactic Acid Calcium 8.1 L Phosphorus Magnesium Transferrin AST ALT Alkaline Phosphatase Total Creatine Kinase CK-MB (CK-2) Serum Total Protein Total Protein Albumin Thtjc-3-Eqplyyeoq Lfjvx-9-Ogskevqic Gamma Globulins PEP Interpretation TSH Arterial Blood Glucose Arterial Blood Ionized Calcium Urine WBC (Auto) Urine Creatinine Urine Total Protein Crossmatch 04/28/21 04/28/21 04/28/21 05:18 11:04 17:16 WBC RBC Hgb Hct MCH RDW Plt Count Seg Neuts % (Manual) Lymphocytes % (Manual) Nucleated RBC % Seg Neutrophils # Man Lymphocytes # (Manual) PT ABG pH POC ABG pCO2 POC ABG pO2 66.5 L ABG pO2 ABG O2 Saturation ABG Base Excess ABG Hemoglobin 9.7 L ABG Oxyhemoglobin 92.5 L ABG Potassium 3.2 L ABG Chloride ABG Glucose 200 H Oxyhemoglobin Carboxyhemoglobin Sodium Potassium Chloride Carbon Dioxide BUN Creatinine Glucose POC Glucose 174 H 135 H Hemoglobin A1c Lactic Acid Calcium Phosphorus Magnesium Transferrin AST ALT Alkaline Phosphatase Total Creatine Kinase CK-MB (CK-2) Serum Total Protein Total Protein Albumin Bhnft-2-Axmkkqkxp Ffgfy-7-Mxvotjdqj Gamma Globulins PEP Interpretation TSH Arterial Blood Glucose 200 H Arterial Blood Ionized Calcium 4.5 L Urine WBC (Auto) Urine Creatinine Urine Total Protein Crossmatch 04/28/21 04/28/21 04/29/21 21:14 23:41 01:16 WBC RBC Hgb Hct MCH RDW Plt Count Seg Neuts % (Manual) Lymphocytes % (Manual) Nucleated RBC % Seg Neutrophils # Man Lymphocytes # (Manual) PT ABG pH POC ABG pCO2 POC ABG pO2 ABG pO2 ABG O2 Saturation ABG Base Excess ABG Hemoglobin ABG Oxyhemoglobin ABG Potassium ABG Chloride ABG Glucose Oxyhemoglobin Carboxyhemoglobin Sodium Potassium Chloride Carbon Dioxide BUN Creatinine Glucose POC Glucose 134 H 171 H 236 H Hemoglobin A1c Lactic Acid Calcium Phosphorus Magnesium Transferrin AST ALT Alkaline Phosphatase Total Creatine Kinase CK-MB (CK-2) Serum Total Protein Total Protein Albumin Yudwu-8-Vggcjuvri Pdhqh-6-Lnwvchmfm Gamma Globulins PEP Interpretation TSH Arterial Blood Glucose Arterial Blood Ionized Calcium Urine WBC (Auto) Urine Creatinine Urine Total Protein Crossmatch 04/29/21 04/29/21 04/29/21 04:00 04:00 11:35 WBC 13.3 H RBC 3.12 L Hgb 8.3 L Hct 26.2 L MCH 27 L RDW 16.3 H Plt Count 132 L Seg Neuts % (Manual) Lymphocytes % (Manual) Nucleated RBC % Seg Neutrophils # Man Lymphocytes # (Manual) PT ABG pH POC ABG pCO2 POC ABG pO2 ABG pO2 ABG O2 Saturation ABG Base Excess ABG Hemoglobin ABG Oxyhemoglobin ABG Potassium ABG Chloride ABG Glucose Oxyhemoglobin Carboxyhemoglobin Sodium Potassium Chloride Carbon Dioxide BUN 63 H Creatinine 3.4 H Glucose 249 H POC Glucose 320 H Hemoglobin A1c Lactic Acid Calcium 8.2 L Phosphorus Magnesium Transferrin AST 61 H ALT 71 H Alkaline Phosphatase 170 H Total Creatine Kinase CK-MB (CK-2) Serum Total Protein Total Protein 5.1 L Albumin 1.6 L Mfaar-6-Wvdvhyprr Rrcsk-0-Apgwgsjoh Gamma Globulins PEP Interpretation TSH Arterial Blood Glucose Arterial Blood Ionized Calcium Urine WBC (Auto) Urine Creatinine Urine Total Protein Crossmatch 04/29/21 04/29/21 04/29/21 13:30 16:01 21:58 WBC RBC Hgb Hct MCH RDW Plt Count Seg Neuts % (Manual) Lymphocytes % (Manual) Nucleated RBC % Seg Neutrophils # Man Lymphocytes # (Manual) PT ABG pH POC ABG pCO2 POC ABG pO2 ABG pO2 ABG O2 Saturation ABG Base Excess ABG Hemoglobin ABG Oxyhemoglobin ABG Potassium ABG Chloride ABG Glucose Oxyhemoglobin Carboxyhemoglobin Sodium Potassium Chloride Carbon Dioxide BUN Creatinine Glucose POC Glucose 297 H 260 H Hemoglobin A1c Lactic Acid Calcium Phosphorus Magnesium Transferrin AST ALT Alkaline Phosphatase Total Creatine Kinase CK-MB (CK-2) Serum Total Protein Total Protein Albumin Ivsve-4-Hadajwjps Sorju-6-Lujuirjwi Gamma Globulins PEP Interpretation TSH Arterial Blood Glucose Arterial Blood Ionized Calcium Urine WBC (Auto) > 182.0 H Urine Creatinine Urine Total Protein Crossmatch 04/29/21 04/30/21 04/30/21 23:35 04:00 04:00 WBC 11.4 H RBC 3.27 L Hgb 8.7 L Hct 27.5 L MCH 27 L RDW 16.6 H Plt Count Seg Neuts % (Manual) Lymphocytes % (Manual) Nucleated RBC % Seg Neutrophils # Man Lymphocytes # (Manual) PT ABG pH POC ABG pCO2 POC ABG pO2 ABG pO2 ABG O2 Saturation ABG Base Excess ABG Hemoglobin ABG Oxyhemoglobin ABG Potassium ABG Chloride ABG Glucose Oxyhemoglobin Carboxyhemoglobin Sodium Potassium 3.1 L Chloride Carbon Dioxide BUN 79 H Creatinine 3.9 H Glucose 275 H POC Glucose 254 H Hemoglobin A1c Lactic Acid Calcium Phosphorus 5.60 H D Magnesium Transferrin AST ALT Alkaline Phosphatase Total Creatine Kinase CK-MB (CK-2) Serum Total Protein Total Protein Albumin Aknin-4-Pfqgzwtzf Rjvnf-2-Odgxwwmkh Gamma Globulins PEP Interpretation TSH Arterial Blood Glucose Arterial Blood Ionized Calcium Urine WBC (Auto) Urine Creatinine Urine Total Protein Crossmatch 04/30/21 04/30/21 04/30/21 05:17 05:31 12:31 WBC RBC Hgb Hct MCH RDW Plt Count Seg Neuts % (Manual) Lymphocytes % (Manual) Nucleated RBC % Seg Neutrophils # Man Lymphocytes # (Manual) PT ABG pH 7.452 H POC ABG pCO2 30.5 L POC ABG pO2 54.5 L ABG pO2 ABG O2 Saturation ABG Base Excess ABG Hemoglobin 10.1 L ABG Oxyhemoglobin 87.4 L ABG Potassium 2.9 L ABG Chloride ABG Glucose 305 H Oxyhemoglobin Carboxyhemoglobin Sodium Potassium Chloride Carbon Dioxide BUN Creatinine Glucose POC Glucose 267 H 259 H Hemoglobin A1c Lactic Acid Calcium Phosphorus Magnesium Transferrin AST ALT Alkaline Phosphatase Total Creatine Kinase CK-MB (CK-2) Serum Total Protein Total Protein Albumin Pdxed-1-Hiznxeqcp Sfjtm-3-Ulbgbexoo Gamma Globulins PEP Interpretation TSH Arterial Blood Glucose 305 H Arterial Blood Ionized Calcium Urine WBC (Auto) Urine Creatinine Urine Total Protein Crossmatch 04/30/21 04/30/21 05/01/21 17:50 22:24 00:09 WBC RBC Hgb Hct MCH RDW Plt Count Seg Neuts % (Manual) Lymphocytes % (Manual) Nucleated RBC % Seg Neutrophils # Man Lymphocytes # (Manual) PT ABG pH POC ABG pCO2 POC ABG pO2 ABG pO2 ABG O2 Saturation ABG Base Excess ABG Hemoglobin ABG Oxyhemoglobin ABG Potassium ABG Chloride ABG Glucose Oxyhemoglobin Carboxyhemoglobin Sodium Potassium Chloride Carbon Dioxide BUN Creatinine Glucose POC Glucose 161 H 146 H 149 H Hemoglobin A1c Lactic Acid Calcium Phosphorus Magnesium Transferrin AST ALT Alkaline Phosphatase Total Creatine Kinase CK-MB (CK-2) Serum Total Protein Total Protein Albumin Vwezk-2-Rcettsxdh Qtbkq-2-Vemlnkddd Gamma Globulins PEP Interpretation TSH Arterial Blood Glucose Arterial Blood Ionized Calcium Urine WBC (Auto) Urine Creatinine Urine Total Protein Crossmatch 05/01/21 05/01/21 05/01/21 03:30 04:00 04:00 WBC 12.0 H RBC 3.08 L Hgb 8.1 L Hct 25.6 L MCH 26 L RDW 16.3 H Plt Count Seg Neuts % (Manual) Lymphocytes % (Manual) Nucleated RBC % Seg Neutrophils # Man Lymphocytes # (Manual) PT ABG pH 7.493 H POC ABG pCO2 POC ABG pO2 ABG pO2 ABG O2 Saturation ABG Base Excess ABG Hemoglobin 25.0 H ABG Oxyhemoglobin ABG Potassium ABG Chloride ABG Glucose 167 H Oxyhemoglobin Carboxyhemoglobin 0.4 L Sodium Potassium 3.5 L Chloride Carbon Dioxide BUN 62 H Creatinine 3.3 H Glucose 179 H POC Glucose Hemoglobin A1c Lactic Acid Calcium 8.3 L Phosphorus Magnesium Transferrin AST ALT Alkaline Phosphatase Total Creatine Kinase CK-MB (CK-2) Serum Total Protein Total Protein Albumin Lodtl-5-Abutugdhb Bohox-4-Dirypqsnj Gamma Globulins PEP Interpretation TSH Arterial Blood Glucose 167 H Arterial Blood Ionized Calcium Urine WBC (Auto) Urine Creatinine Urine Total Protein Crossmatch 05/01/21 05/01/21 05/01/21 05:48 11:49 16:24 WBC RBC Hgb Hct MCH RDW Plt Count Seg Neuts % (Manual) Lymphocytes % (Manual) Nucleated RBC % Seg Neutrophils # Man Lymphocytes # (Manual) PT ABG pH POC ABG pCO2 POC ABG pO2 ABG pO2 ABG O2 Saturation ABG Base Excess ABG Hemoglobin ABG Oxyhemoglobin ABG Potassium ABG Chloride ABG Glucose Oxyhemoglobin Carboxyhemoglobin Sodium Potassium Chloride Carbon Dioxide BUN Creatinine Glucose POC Glucose 197 H 167 H 157 H Hemoglobin A1c Lactic Acid Calcium Phosphorus Magnesium Transferrin AST ALT Alkaline Phosphatase Total Creatine Kinase CK-MB (CK-2) Serum Total Protein Total Protein Albumin Pkfsw-1-Oyskhnxwg Zhzjm-0-Hqaksjabb Gamma Globulins PEP Interpretation TSH Arterial Blood Glucose Arterial Blood Ionized Calcium Urine WBC (Auto) Urine Creatinine Urine Total Protein Crossmatch 05/01/21 05/02/21 05/02/21 23:25 04:00 04:00 WBC 14.2 H RBC 2.61 L Hgb 6.9 L Hct 22.1 L MCH 27 L RDW 16.1 H Plt Count Seg Neuts % (Manual) Lymphocytes % (Manual) Nucleated RBC % Seg Neutrophils # Man Lymphocytes # (Manual) PT ABG pH POC ABG pCO2 POC ABG pO2 ABG pO2 ABG O2 Saturation ABG Base Excess ABG Hemoglobin ABG Oxyhemoglobin ABG Potassium ABG Chloride ABG Glucose Oxyhemoglobin Carboxyhemoglobin Sodium Potassium Chloride Carbon Dioxide BUN 49 H Creatinine 2.8 H Glucose 117 H POC Glucose 147 H Hemoglobin A1c Lactic Acid Calcium Phosphorus Magnesium Transferrin AST ALT Alkaline Phosphatase Total Creatine Kinase CK-MB (CK-2) Serum Total Protein Total Protein Albumin Klgzl-1-Dyqozgylp Ywkai-2-Ltpuxdtdm Gamma Globulins PEP Interpretation TSH Arterial Blood Glucose Arterial Blood Ionized Calcium Urine WBC (Auto) Urine Creatinine Urine Total Protein Crossmatch 05/02/21 05/02/21 05/02/21 04:34 05:23 12:00 WBC RBC Hgb Hct MCH RDW Plt Count Seg Neuts % (Manual) Lymphocytes % (Manual) Nucleated RBC % Seg Neutrophils # Man Lymphocytes # (Manual) PT ABG pH 7.487 H POC ABG pCO2 POC ABG pO2 78.6 L ABG pO2 ABG O2 Saturation ABG Base Excess ABG Hemoglobin 11.5 L ABG Oxyhemoglobin ABG Potassium ABG Chloride ABG Glucose 122 H Oxyhemoglobin Carboxyhemoglobin Sodium Potassium Chloride Carbon Dioxide BUN Creatinine Glucose POC Glucose 119 H Hemoglobin A1c Lactic Acid Calcium Phosphorus Magnesium Transferrin AST ALT Alkaline Phosphatase Total Creatine Kinase CK-MB (CK-2) Serum Total Protein Total Protein Albumin [id number] Trsnl-8-Nvhyuawwp Gamma Globulins PEP Interpretation TSH Arterial Blood Glucose 122 H Arterial Blood Ionized Calcium Urine WBC (Auto) Urine Creatinine Urine Total Protein Crossmatch See Detail 05/02/21 05/02/21 05/02/21 12:04 17:29 23:36 WBC RBC Hgb Hct MCH RDW Plt Count Seg Neuts % (Manual) Lymphocytes % (Manual) Nucleated RBC % Seg Neutrophils # Man Lymphocytes # (Manual) PT ABG pH POC ABG pCO2 POC ABG pO2 ABG pO2 ABG O2 Saturation ABG Base Excess ABG Hemoglobin ABG Oxyhemoglobin ABG Potassium ABG Chloride ABG Glucose Oxyhemoglobin Carboxyhemoglobin Sodium Potassium Chloride Carbon Dioxide BUN Creatinine Glucose POC Glucose 115 H 120 H 130 H Hemoglobin A1c Lactic Acid Calcium Phosphorus Magnesium Transferrin AST ALT Alkaline Phosphatase Total Creatine Kinase CK-MB (CK-2) Serum Total Protein Total Protein Albumin Kslhz-[id number] Rgysj-7-Gvalxmxti Gamma Globulins PEP Interpretation TSH Arterial Blood Glucose Arterial Blood Ionized Calcium Urine WBC (Auto) Urine Creatinine Urine Total Protein Crossmatch 05/03/21 05/03/21 04:00 04:00 WBC 13.9 H RBC 3.22 L Hgb 8.7 L Hct 27.4 L MCH 27 L RDW 15.8 H Plt Count Seg Neuts % (Manual) Lymphocytes % (Manual) Nucleated RBC % Seg Neutrophils # Man Lymphocytes # (Manual) PT ABG pH POC ABG pCO2 POC ABG pO2 ABG pO2 ABG O2 Saturation ABG Base Excess ABG Hemoglobin ABG Oxyhemoglobin ABG Potassium ABG Chloride ABG Glucose Oxyhemoglobin Carboxyhemoglobin Sodium 146 H Potassium 3.5 L Chloride 107.5 H Carbon Dioxide BUN 40 H Creatinine 2.5 H Glucose 104 H POC Glucose Hemoglobin A1c Lactic Acid Calcium Phosphorus Magnesium Transferrin AST 53 H ALT Alkaline Phosphatase 149 H Total Creatine Kinase CK-MB (CK-2) Serum Total Protein Total Protein 5.2 L Albumin 1.5 L Inerh-4-Brsnpbnfk Ucijo-7-Hpxwxcxne Gamma Globulins PEP Interpretation TSH Arterial Blood Glucose Arterial Blood Ionized Calcium Urine WBC (Auto) Urine Creatinine Urine Total Protein Crossmatch
--- NOTE | 2021-05-03 09:36 | Progress Note ---
Assessment and Plan (1) Acute metabolic encephalopathy (2) Diabetic hyperosmolar non-ketotic state 3) SYED (acute kidney injury) (4) Dehydration (5) Hypernatremia (6) Rhabdomyolysis (7) Hypernatremia 8) GERD (gastroesophageal reflux disease) (9) Metabolic acidosis (10) Leukocytosis no indication for HD today will assess dialysis needs daily Intubated on Vent. Monitor Ck renally dose meds Strict I&O In ICU Subjective Date of service: 05/03/21 Principal diagnosis: Acute respiratory failure Interval history: tolerated HD yesterday Objective - Vital Signs Vital signs: Vital Signs - 12hr 05/02/21 05/02/21 05/02/21 22:00 22:01 22:31 Temperature Pulse Rate 102 H 102 H 107 H Pulse Rate [ From Monitor] Respiratory 19 21 18 Rate Blood Pressure 118/52 118/52 97/45 O2 Sat by Pulse 97 98 Oximetry 05/02/21 05/02/21 05/02/21 23:00 23:30 23:48 Temperature 99.3 F Pulse Rate 91 H 98 H Pulse Rate [ From Monitor] Respiratory 16 18 Rate Blood Pressure 98/41 110/51 O2 Sat by Pulse 98 98 Oximetry 05/03/21 05/03/21 05/03/21 00:00 00:30 01:00 Temperature Pulse Rate 91 H 86 90 Pulse Rate [ 88 From Monitor] Respiratory 17 19 17 Rate Blood Pressure 96/48 84/40 86/42 O2 Sat by Pulse 99 98 98 Oximetry 05/03/21 05/03/21 05/03/21 01:30 02:00 02:31 Temperature Pulse Rate 85 88 94 H Pulse Rate [ From Monitor] Respiratory 16 16 24 Rate Blood Pressure 101/46 102/48 113/56 O2 Sat by Pulse 98 99 98 Oximetry 05/03/21 05/03/21 05/03/21 02:57 03:00 03:30 Temperature 97.5 F L Pulse Rate 92 H 94 H 93 H Pulse Rate [ From Monitor] Respiratory 26 H 21 Rate Blood Pressure 103/51 103/51 108/47 O2 Sat by Pulse 100 98 95 Oximetry 05/03/21 05/03/21 05/03/21 03:39 04:00 04:30 Temperature Pulse Rate 91 H 98 H 90 Pulse Rate [ 93 H From Monitor] Respiratory 15 22 17 Rate Blood Pressure 112/49 100/45 O2 Sat by Pulse 100 97 97 Oximetry 05/03/21 05/03/21 05/03/21 05:00 05:30 06:00 Temperature Pulse Rate 96 H 90 94 H Pulse Rate [ From Monitor] Respiratory 20 25 H 18 Rate Blood Pressure 115/49 104/44 107/45 O2 Sat by Pulse 98 97 96 Oximetry 05/03/21 05/03/21 08:00 08:37 Temperature 99.3 F Pulse Rate 102 H Pulse Rate [ From Monitor] Respiratory Rate Blood Pressure 116/55 O2 Sat by Pulse 98 Oximetry - General Appearance General appearance: intubated EENT: mucous membranes dry Respiratory: Present: Decreased Breath Sounds Cardiology: tachycardia Gastrointestinal: no tenderness, no distended, no masses Integumentary: no rash, warm and dry Neurologic: other (intubated) Musculoskeletal: other (edema in BLE) Psychiatric: other (intubated) - Lab 05/03/21 04:00 05/03/21 04:00 Most recent lab results ABG pH 7.487 (7.320-7.450) H 05/02/21 04:34 ABG pCO2 31.6 mm Hg 04/21/21 15:47 ABG pO2 168.1 mm Hg (80.0-90.0) H 04/21/21 15:47 ABG HCO3 23.3 mmol/L (20.0-26.0) 04/21/21 15:47 ABG O2 Saturation 96.0 (0-100) 05/02/21 04:34 Calcium 9.5 mg/dL (8.4-10.2) 05/03/21 04:00 Phosphorus 3.80 mg/dL (2.5-4.5) 05/02/21 04:00 Magnesium 1.80 mg/dL (1.7-2.3) 05/02/21 04:00 Urine Creatinine 44.3 mg/dL (0.1-20.0) H 04/21/21 08:01 Urine Sodium 71 mmol/L 04/21/21 08:01 Urine Total Protein 12 mg/dL (5-11.8) H 04/21/21 08:01 Medications & Allergies - Medications Allergies/Adverse Reactions: Allergies No Known Allergies Allergy (Unverified 04/20/21 14:35) Active Medications: Generic Name Dose Route Start Last Admin Trade Name Freq PRN Reason Stop Dose Admin Acetaminophen 650 mg 04/20/21 21:31 05/01/21 18:15 Acetaminophen 325 Mg Tab PO 650 mg Q4H PRN Administration Pain MILD(1-3)/Fever >100.5/TURCIOS Albuterol 2.5 mg 04/22/21 14:49 04/23/21 15:18 Albuterol 2.5 Mg/3 Ml Nebu IH 2.5 mg Q4HRT PRN Administration Shortness Of Breath Lipase/Protease/Amylase 1 each 04/25/21 14:13 Lipase 10,500/Protease 25,000/Amylase 43,750 (Units) Dr Vasquez FEEDTUBE PRN PRN For Clogged Feeding Tube Dextrose 50 ml 04/24/21 11:36 Dextrose 50% In Water (25gm) 50 Ml Syringe IV Q30MIN PRN Hypoglycemia Protocol Famotidine 10 mg 04/27/21 10:00 05/03/21 09:21 Famotidine 10 Mg Tab FEEDTUBE 10 mg BID AZIZA Administration Hydralazine HCl 10 mg 04/24/21 21:22 Hydralazine 20 Mg/1 Ml Inj IV Q4HR PRN elevated BP Hydrophilic Ointment 1 applic 04/26/21 11:16 Lip Therapy Vaseline TP Q2HR PRN Dry Lips NORepinephrine/NS 8 MG-250 ML 8 mg in 250 mls @ 3.75 mls/hr 04/26/21 16:00 05/03/21 01:00 Norepinephrine/Ns 8 Mg-250 Ml (Double Conc) IV 2 mcg/min TITRATE AZIZA 3.75 mls/hr Titration Protocol 2 MCG/MIN Sodium Chloride 100 mls @ 999 mls/hr 05/01/21 12:44 Nacl 0.9% IV MITCH PRN Hypotension MEROPENEM/NS 1 GRAM/100 ML 1 gram in 100 mls @ 100 mls/hr 05/03/21 15:00 Merrem/Ns 1 Gram/100 Ml IV [facility] Protocol Insulin Human Lispro 0 unit 04/25/21 18:00 05/03/21 05:32 Insulin Lispro 100 Unit/Ml SUB-Q Not Given Q6HR AZIZA Protocol Insulin Human NPH 40 unit 04/30/21 10:00 05/02/21 21:25 Insulin Nph, Human 100 Unit/1 Ml SUB-Q 40 unit Q12HR AZIZA Administration Levothyroxine Sodium 50 mcg 05/03/21 06:00 05/03/21 05:34 Levothyroxine 50 Mcg Tab PO 50 mcg DAILY@0600 AZIZA Administration Lorazepam 1 mg 04/26/21 11:15 04/30/21 23:00 Lorazepam 2 Mg/Ml Vial IV 1 mg Q4H PRN Administration Sedation Metoclopramide HCl 5 mg 04/20/21 21:31 Metoclopramide 10 Mg/2 Ml Inj IV Q6H PRN Nausea And Vomiting Multi-Ingred Cream/Lotion/Oil/Oint 1 applic 04/26/21 11:16 Mineral Oil/Petrolatum, White Ophth Oint 3.5 Gm OU Q4HR PRN Dry Eye(s) Ondansetron HCl 4 mg 04/20/21 21:31 Ondansetron 4 Mg/2 Ml Inj IV Q8H PRN Nausea And Vomiting Senna/Docusate Sodium 1 tab 04/26/21 22:00 05/02/21 21:25 Sennosides/Docusate Sodium 8.6/50 Mg Tab FEEDTUBE 1 tab BID AZIZA Administration Simple Syrup 15 ml 04/25/21 14:13 Simple Syrup 15 Ml FEEDTUBE PRN PRN Hypoglycemia Simple Syrup 30 ml 04/25/21 14:13 Simple Syrup 15 Ml FEEDTUBE PRN PRN Hypoglycemia Sodium Bicarbonate 325 mg 04/25/21 14:13 04/27/21 13:00 Sodium Bicarbonate 325 Mg Tab FEEDTUBE 325 mg PRN PRN Administration For Clogged Feeding Tube Sodium Bicarbonate 1,300 mg 04/27/21 14:00 05/03/21 09:00 Sodium Bicarbonate 650 Mg Tab PO 1,300 mg TID AZIZA Administration Sodium Chloride 10 ml 04/20/21 22:00 05/03/21 09:22 Sodium Chloride 0.9% 10 Ml Flush Syringe IV 10 ml BID AZIZA Administration Sodium Chloride 10 ml 04/20/21 21:31 Sodium Chloride 0.9% 10 Ml Flush Syringe IV PRN PRN LINE FLUSH
[2021-05-03] MEDS: SENNOSIDES/DOCUSATE SODIUM 8.6/50 MG TAB FEEDTUBE SCH ×2 (10:05→21:02)
[2021-05-03] MEDS ORDERED: ASPIRIN 81 MG TAB CHEW PO SCH (11:00)
[2021-05-03] MEDS: MIDODRINE 5 MG TAB PO SCH ×2 (11:28→21:01)
--- NOTE | 2021-05-03 12:50 | Consultation ---
History of Present Illness Consult date: 05/03/21 Reason for Consult: Unresponsivness History of present illness: initially evaluated BY tele/neurology liquefaction and regasification helper as well as Neurosurgery The patient is a 80-year-old female who is a [facility] resident, with hypothyroidism, GERD, hyperlipidemia, schizophrenia, dementia was admitted on 04/20/2021 after being found unresponsive by the staff. Upon evaluation in the ER, initial labs concerning for diabetic hyperosmolar nonketotic state, acute kidney injury, severe hypernatremia of 173 which peaked at 179. Also with acute encephalopathy, initially required BiPAP. Received empiric antibiotics due to initial leukocytosis and coverage for pneumonia. Started on dialysis for her acute renal failure. Was subsequently intubated on 04/26/2021. Lumbar puncture with CSF showing 14 WBC, 324 RBC, glucose 161, protein 51. Over the last 1 week, leukocytosis has gradually been worsening, patient also spiking intermittent fevers with a T-max of 101.7 F yesterday morning. In ER she had CT brain is read as possible hydrocephalus and she under went LP - 04/29/2021 was remarkable for 14WBCs and 324 RBCs, protein#51 and Glucose#161. MRI brain yesterday is remarkable for multiple acute possibly embolic event noted EEG is pending she continues to be unresponsive echo showed EF#60-65% current BUN/Cr#40/2.5 neurology is consulted today for further evaluation Review of Systems: Unable to obtain, intubated - Past Medical History --Previous Medical History?: Yes --GERD: Yes --Psychiatric Treatment: Yes (Schitzophrenia, dementia) --Additional medical history: Hypothroid, hyperlipidemia - Surgical History Past Surgical History?: No - Family History Family history: no significant - Social History Smoking Status: Unknown if ever smoked Review of Systems ROS: Stated complaint: AMS Other details as noted in HPI Comment: Unobtainable due to pts medical conditions (Patient unresponsive) Past History Past Medical History: other (Dementia, GERD) Past Surgical History: Other (unable to obtain.) Social history: other (unable to obtain) Family history: other (unable to obtain) Medications and Allergies Allergies Allergy/AdvReac Type Severity Reaction Status Date / Time No Known Allergies Allergy Unverified 04/20/21 14:35 Active Meds: Active Medications Acetaminophen (Acetaminophen 325 Mg Tab) 650 mg PO Q4H PRN PRN Reason: Pain MILD(1-3)/Fever >100.5/TURCIOS Last Admin: 05/01/21 18:15 Dose: 650 mg Albuterol (Albuterol 2.5 Mg/3 Ml Nebu) 2.5 mg IH Q4HRT PRN PRN Reason: Shortness Of Breath Last Admin: 04/23/21 15:18 Dose: 2.5 mg Lipase/Protease/Amylase (Lipase 10,500/Protease 25,000/Amylase 43,750 (Units) Dr Vasquez) 1 each FEEDTUBE PRN PRN PRN Reason: For Clogged Feeding Tube Aspirin (Aspirin 81 Mg Tab Chew) 81 mg PO QDAY AZIZA Atorvastatin Calcium (Atorvastatin 40 Mg Tab) 40 mg PO QHS AZIZA Dextrose (Dextrose 50% In Water (25gm) 50 Ml Syringe) 50 ml IV Q30MIN PRN; Protocol PRN Reason: Hypoglycemia Famotidine (Famotidine 10 Mg Tab) 10 mg FEEDTUBE BID AZIZA Last Admin: 05/03/21 09:21 Dose: 10 mg Hydralazine HCl (Hydralazine 20 Mg/1 Ml Inj) 10 mg IV Q4HR PRN PRN Reason: elevated BP Hydrophilic Ointment (Lip Therapy Vaseline) 1 applic TP Q2HR PRN PRN Reason: Dry Lips NORepinephrine/NS 8 MG-250 ML (Norepinephrine/Ns 8 Mg-250 Ml (Double Conc)) 8 mg in 250 mls @ 3.75 mls/hr IV TITRATE AZIZA; Protocol Last Titration: 05/03/21 01:00 Dose: 2 mcg/min, 3.75 mls/hr Sodium Chloride (Nacl 0.9%) 100 mls @ 999 mls/hr IV MITCH PRN PRN Reason: Hypotension MEROPENEM/NS 1 GRAM/100 ML (Merrem/Ns 1 Gram/100 Ml) 1 gram in 100 mls @ 100 mls/hr IV 1500 AZIZA; Protocol Insulin Human Lispro (Insulin Lispro 100 Unit/Ml) 0 unit SUB-Q Q6HR AZIZA; Pr otocol Last Admin: 05/03/21 05:32 Dose: Not Given Levothyroxine Sodium (Levothyroxine 50 Mcg Tab) 50 mcg PO DAILY@0600 AZIZA Last Admin: 05/03/21 05:34 Dose: 50 mcg Lorazepam (Lorazepam 2 Mg/Ml Vial) 1 mg IV Q4H PRN PRN Reason: Sedation Last Admin: 04/30/21 23:00 Dose: 1 mg Metoclopramide HCl (Metoclopramide 10 Mg/2 Ml Inj) 5 mg IV Q6H PRN PRN Reason: Nausea And Vomiting Midodrine (Midodrine 5 Mg Tab) 5 mg PO TID [facility] Multi-Ingred Cream/Lotion/Oil/Oint (Mineral Oil/Petrolatum, White Ophth Oint 3.5 Gm) 1 applic OU Q4HR PRN PRN Reason: Dry Eye(s) Ondansetron HCl (Ondansetron 4 Mg/2 Ml Inj) 4 mg IV Q8H PRN PRN Reason: Nausea And Vomiting Senna/Docusate Sodium (Sennosides/Docusate Sodium 8.6/50 Mg Tab) 1 tab FEEDTUBE BID [facility] Last Admin: 05/02/21 21:25 Dose: 1 tab Simple Syrup (Simple Syrup 15 Ml) 15 ml FEEDTUBE PRN PRN PRN Reason: Hypoglycemia Simple Syrup (Simple Syrup 15 Ml) 30 ml FEEDTUBE PRN PRN PRN Reason: Hypoglycemia Sodium Bicarbonate (Sodium Bicarbonate 325 Mg Tab) 325 mg FEEDTUBE PRN PRN PRN Reason: For Clogged Feeding Tube Last Admin: 04/27/21 13:00 Dose: 325 mg Sodium Bicarbonate (Sodium Bicarbonate 650 Mg Tab) 1,300 mg PO TID [facility] Last Admin: 05/03/21 09:00 Dose: 1,300 mg Sodium Chloride (Sodium Chloride 0.9% 10 Ml Flush Syringe) 10 ml IV BID [facility] Last Admin: 05/03/21 09:22 Dose: 10 ml Sodium Chloride (Sodium Chloride 0.9% 10 Ml Flush Syringe) 10 ml IV PRN PRN PRN Reason: LINE FLUSH Physical Examination - Vital Signs Vital Signs: Vital Signs Pulse Resp BP Pulse Ox 85 19 107/35 94 04/20/21 14:31 04/20/21 14:31 04/20/21 14:31 04/20/21 14:31 - Constitutional General appearance: comfortable, acutely ill, other (intubated on norepiph#2 mc, no sedation) - EENT EENT: Present: PERRL, mucous membranes moist - Respiratory Respiratory: Present: lungs clear, rhonchi - Cardiovascular Cardiovascular: Present: regular rate, normal S1, normal S2 Extremities: Present: no peripheral edema bilatateraly, no clubbing, cyanosis - Gastrointestinal Gastrointestinal: Present: normoactive bowel sounds - Integumentary Integumentary: Present: normal - Neurologic Cranial nerve examination: PERRL, EOMI, other (pupil reactive,EOMI , gag is intact and corneal is intact , no clear facial asymmetry ) Detailed motor examination: other (she is slightly moving left upper> right , planter is down bilateral ,no rigidity ,) Results - Laboratory Findings CBC and BMP: 05/03/21 04:00 05/03/21 04:00 Abnormal Lab Findings: Abnormal Labs 04/20/21 04/20/21 04/20/21 17:10 17:10 17:10 WBC 17.4 H RBC 5.19 H Hgb Hct 46.8 H MCH 27 L RDW 17.2 H Plt Count Seg Neuts % (Manual) 98.0 H Lymphocytes % (Manual) 2.0 L Nucleated RBC % 1.0 H Seg Neutrophils # Man 17.1 H Lymphocytes # (Manual) 0.3 L PT ABG pH POC ABG pCO2 POC ABG pO2 ABG pO2 ABG O2 Saturation ABG Base Excess ABG Hemoglobin ABG Oxyhemoglobin ABG Potassium ABG Chloride ABG Glucose Oxyhemoglobin Carboxyhemoglobin Sodium 173 H* Potassium Chloride 132.9 H Carbon Dioxide 17 L BUN 120 H Creatinine 4.2 H Glucose 762 H* POC Glucose Hemoglobin A1c Lactic Acid Calcium Phosphorus Magnesium 3.80 H Transferrin AST 72 H ALT 63 H Alkaline Phosphatase 148 H Total Creatine Kinase 3697 H CK-MB (CK-2) 36.0 H Serum Total Protein Total Protein Albumin 2.2 L Xhqel-1-Dbafxakbc Nqbad-0-Ltchcodmz Gamma Globulins PEP Interpretation TSH Arterial Blood Glucose Arterial Blood Ionized Calcium Urine WBC (Auto) Urine Creatinine Urine Total Protein Crossmatch 04/20/21 04/20/21 04/20/21 17:10 17:10 18:55 WBC RBC Hgb Hct MCH RDW Plt Count Seg Neuts % (Manual) Lymphocytes % (Manual) Nucleated RBC % Seg Neutrophils # Man Lymphocytes # (Manual) PT ABG pH POC ABG pCO2 POC ABG pO2 ABG pO2 ABG O2 Saturation ABG Base Excess ABG Hemoglobin ABG Oxyhemoglobin ABG Potassium ABG Chloride ABG Glucose Oxyhemoglobin Carboxyhemoglobin Sodium Potassium Chloride Carbon Dioxide BUN Creatinine Glucose POC Glucose 574 H Hemoglobin A1c Lactic Acid 2.60 H* Calcium Phosphorus Magnesium Transferrin AST ALT Alkaline Phosphatase Total Creatine Kinase CK-MB (CK-2) Serum Total Protein Total Protein Albumin Idcbk-0-Kwmvfeenh Vxzxs-3-Qijjuzula Gamma Globulins PEP Interpretation TSH 6.040 H Arterial Blood Glucose Arterial Blood Ionized Calcium Urine WBC (Auto) Urine Creatinine Urine Total Protein Crossmatch 04/20/21 04/20/21 04/21/21 22:58 22:58 00:14 WBC RBC Hgb Hct MCH RDW Plt Count Seg Neuts % (Manual) Lymphocytes % (Manual) Nucleated RBC % Seg Neutrophils # Man Lymphocytes # (Manual) PT ABG pH POC ABG pCO2 POC ABG pO2 ABG pO2 ABG O2 Saturation ABG Base Excess ABG Hemoglobin ABG Oxyhemoglobin ABG Potassium ABG Chloride ABG Glucose Oxyhemoglobin Carboxyhemoglobin Sodium 172 H* Potassium 3.2 L Chloride 134.2 H Carbon Dioxide 17 L BUN 112 H Creatinine 3.8 H Glucose 803 H* POC Glucose > 600 H Hemoglobin A1c Lactic Acid Calcium 8.3 L Phosphorus Magnesium 3.50 H Transferrin AST ALT Alkaline Phosphatase Total Creatine Kinase CK-MB (CK-2) Serum Total Protein Total Protein Albumin Uwycm-1-Yhrgcapfr Ehbxg-1-Iugtiqguc Gamma Globulins PEP Interpretation TSH Arterial Blood Glucose Arterial Blood Ionized Calcium Urine WBC (Auto) Urine Creatinine Urine Total Protein Crossmatch 04/21/21 04/21/21 04/21/21 00:22 02:01 03:11 WBC RBC Hgb Hct MCH RDW Plt Count Seg Neuts % (Manual) Lymphocytes % (Manual) Nucleated RBC % Seg Neutrophils # Man Lymphocytes # (Manual) PT ABG pH POC ABG pCO2 POC ABG pO2 ABG pO2 ABG O2 Saturation ABG Base Excess ABG Hemoglobin ABG Oxyhemoglobin ABG Potassium ABG Chloride ABG Glucose Oxyhemoglobin Carboxyhemoglobin Sodium 176 H* 175 H* Potassium 2.9 L* 3.0 L Chloride 139.9 H 136.2 H Carbon Dioxide 17 L 19 L BUN 113 H 112 H Creatinine 3.9 H 3.6 H Glucose 729 H* 582 H* POC Glucose 404 H Hemoglobin A1c Lactic Acid Calcium Phosphorus Magnesium Transferrin AST ALT Alkaline Phosphatase Total Creatine Kinase CK-MB (CK-2) Serum Total Protein Total Protein Albumin Uuciw-8-Idkqtacpk Vkokx-7-Qhtbijlwg Gamma Globulins PEP Interpretation TSH Arterial Blood Glucose Arterial Blood Ionized Calcium Urine WBC (Auto) Urine Creatinine Urine Total Protein Crossmatch 04/21/21 04/21/21 04/21/21 03:20 03:41 03:41 WBC 14.1 H RBC Hgb Hct MCH 27 L RDW 16.8 H Plt Count 114 L Seg Neuts % (Manual) 97.0 H Lymphocytes % (Manual) 3.0 L Nucleated RBC % 1.0 H Seg Neutrophils # Man 13.7 H Lymphocytes # (Manual) 0.4 L PT ABG pH POC ABG pCO2 POC ABG pO2 ABG pO2 52.3 L ABG O2 Saturation 84.5 L ABG Base Excess -2.9 L ABG Hemoglobin ABG Oxyhemoglobin ABG Potassium ABG Chloride ABG Glucose Oxyhemoglobin 82.9 L Carboxyhemoglobin Sodium 179 H* Potassium 2.9 L* Chloride 138.2 H Carbon Dioxide 20 L BUN 111 H Creatinine 3.7 H Glucose 465 H POC Glucose Hemoglobin A1c Lactic Acid Calcium Phosphorus Magnesium Transferrin AST 73 H ALT 61 H Alkaline Phosphatase 144 H Total Creatine Kinase CK-MB (CK-2) Serum Total Protein Total Protein Albumin 2.5 L Ckmhb-0-Juvdvvdug Dqacv-9-Cwzksevwm Gamma Globulins PEP Interpretation TSH Arterial Blood Glucose Arterial Blood Ionized Calcium Urine WBC (Auto) Urine Creatinine Urine Total Protein Crossmatch 04/21/21 04/21/21 04/21/21 04:24 05:45 06:47 WBC RBC Hgb Hct MCH RDW Plt Count Seg Neuts % (Manual) Lymphocytes % (Manual) Nucleated RBC % Seg Neutrophils # Man Lymphocytes # (Manual) PT ABG pH POC ABG pCO2 POC ABG pO2 ABG pO2 ABG O2 Saturation ABG Base Excess ABG Hemoglobin ABG Oxyhemoglobin ABG Potassium ABG Chloride ABG Glucose Oxyhemoglobin Carboxyhemoglobin Sodium Potassium Chloride Carbon Dioxide BUN Creatinine Glucose POC Glucose 353 H 280 H 260 H Hemoglobin A1c Lactic Acid Calcium Phosphorus Magnesium Transferrin AST ALT Alkaline Phosphatase Total Creatine Kinase CK-MB (CK-2) Serum Total Protein Total Protein Albumin Sebjm-0-Vixbywztn Ftwjo-0-Vxlhalrxd Gamma Globulins PEP Interpretation TSH Arterial Blood Glucose Arterial Blood Ionized Calcium Urine WBC (Auto) Urine Creatinine Urine Total Protein Crossmatch 04/21/21 04/21/21 04/21/21 08:01 11:11 12:51 WBC RBC Hgb Hct MCH RDW Plt Count Seg Neuts % (Manual) Lymphocytes % (Manual) Nucleated RBC % Seg Neutrophils # Man Lymphocytes # (Manual) PT ABG pH POC ABG pCO2 POC ABG pO2 ABG pO2 ABG O2 Saturation ABG Base Excess ABG Hemoglobin ABG Oxyhemoglobin ABG Potassium ABG Chloride ABG Glucose Oxyhemoglobin Carboxyhemoglobin Sodium Potassium Chloride Carbon Dioxide BUN Creatinine Glucose POC Glucose 68 L 146 H Hemoglobin A1c Lactic Acid Calcium Phosphorus Magnesium Transferrin AST ALT Alkaline Phosphatase Total Creatine Kinase CK-MB (CK-2) Serum Total Protein Total Protein Albumin Jkzaf-9-Wxbqfldxm Krhha-2-Lgqpxxuty Gamma Globulins PEP Interpretation TSH Arterial Blood Glucose Arterial Blood Ionized Calcium Urine WBC (Auto) Urine Creatinine 44.3 H Urine Total Protein 12 H Crossmatch 04/21/21 04/21/21 04/21/21 13:41 14:40 15:47 WBC RBC Hgb Hct MCH RDW Plt Count Seg Neuts % (Manual) Lymphocytes % (Manual) Nucleated RBC % Seg Neutrophils # Man Lymphocytes # (Manual) PT ABG pH 7.275 L 7.486 H POC ABG pCO2 POC ABG pO2 63.4 L ABG pO2 168.1 H ABG O2 Saturation 99.1 H ABG Base Excess ABG Hemoglobin 8.4 L 8.9 L ABG Oxyhemoglobin 89.5 L ABG Potassium ABG Chloride 108.0 H ABG Glucose 404 H Oxyhemoglobin Carboxyhemoglobin Sodium Potassium Chloride Carbon Dioxide BUN Creatinine Glucose POC Glucose 186 H Hemoglobin A1c Lactic Acid Calcium Phosphorus Magnesium Transferrin AST ALT Alkaline Phosphatase Total Creatine Kinase CK-MB (CK-2) Serum Total Protein Total Protein Albumin Qkimm-6-Avhuharlu Nfjjm-8-Lrhvjlwpr Gamma Globulins PEP Interpretation TSH Arterial Blood Glucose 404 H Arterial Blood Ionized Calcium Urine WBC (Auto) Urine Creatinine Urine Total Protein Crossmatch 04/21/21 04/21/21 04/21/21 16:25 17:57 18:49 WBC RBC Hgb Hct MCH RDW Plt Count Seg Neuts % (Manual) Lymphocytes % (Manual) Nucleated RBC % Seg Neutrophils # Man Lymphocytes # (Manual) PT ABG pH POC ABG pCO2 POC ABG pO2 ABG pO2 ABG O2 Saturation ABG Base Excess ABG Hemoglobin ABG Oxyhemoglobin ABG Potassium ABG Chloride ABG Glucose Oxyhemoglobin Carboxyhemoglobin Sodium 174 H* Potassium 7.2 H* D Chloride 138.2 H Carbon Dioxide 21 L BUN 99 H Creatinine 4.0 H Glucose 157 H POC Glucose 172 H 143 H Hemoglobin A1c Lactic Acid Calcium Phosphorus Magnesium Transferrin AST 134 H ALT 71 H Alkaline Phosphatase 135 H Total Creatine Kinase 3504 H CK-MB (CK-2) Serum Total Protein Total Protein Albumin 2.2 L Kbdzh-1-Iybrwrxny Xudpp-8-Ckkegwubs Gamma Globulins PEP Interpretation TSH Arterial Blood Glucose Arterial Blood Ionized Calcium Urine WBC (Auto) Urine Creatinine Urine Total Protein Crossmatch 04/21/21 04/21/21 04/21/21 19:10 20:26 20:53 WBC RBC Hgb Hct MCH RDW Plt Count Seg Neuts % (Manual) Lymphocytes % (Manual) Nucleated RBC % Seg Neutrophils # Man Lymphocytes # (Manual) PT ABG pH POC ABG pCO2 POC ABG pO2 ABG pO2 ABG O2 Saturation ABG Base Excess ABG Hemoglobin ABG Oxyhemoglobin ABG Potassium ABG Chloride ABG Glucose Oxyhemoglobin Carboxyhemoglobin Sodium Potassium Chloride Carbon Dioxide BUN Creatinine Glucose POC Glucose 126 H 190 H 116 H Hemoglobin A1c Lactic Acid Calcium Phosphorus Magnesium Transferrin AST ALT Alkaline Phosphatase Total Creatine Kinase CK-MB (CK-2) Serum Total Protein Total Protein Albumin Tbtou-7-Esaxosdlj Qotzs-4-Nzknvhtdx Gamma Globulins PEP Interpretation TSH Arterial Blood Glucose Arterial Blood Ionized Calcium Urine WBC (Auto) Urine Creatinine Urine Total Protein Crossmatch 04/21/21 04/21/21 04/21/21 21:52 22:55 23:00 WBC RBC Hgb Hct MCH RDW Plt Count Seg Neuts % (Manual) Lymphocytes % (Manual) Nucleated RBC % Seg Neutrophils # Man Lymphocytes # (Manual) PT ABG pH POC ABG pCO2 POC ABG pO2 ABG pO2 ABG O2 Saturation ABG Base Excess ABG Hemoglobin ABG Oxyhemoglobin ABG Potassium ABG Chloride ABG Glucose Oxyhemoglobin Carboxyhemoglobin Sodium 176 H* Potassium Chloride 140.0 H Carbon Dioxide 20 L BUN 98 H Creatinine 3.9 H Glucose 206 H POC Glucose 135 H 158 H Hemoglobin A1c Lactic Acid Calcium Phosphorus Magnesium Transferrin AST ALT Alkaline Phosphatase Total Creatine Kinase 3240 H CK-MB (CK-2) Serum Total Protein Total Protein Albumin Rjpgn-5-Plxrwaknt Ajlqo-6-Nsqhneqzf Gamma Globulins PEP Interpretation TSH Arterial Blood Glucose Arterial Blood Ionized Calcium Urine WBC (Auto) Urine Creatinine Urine Total Protein Crossmatch 04/22/21 04/22/21 04/22/21 00:01 00:39 00:58 WBC RBC Hgb Hct MCH RDW Plt Count Seg Neuts % (Manual) Lymphocytes % (Manual) Nucleated RBC % Seg Neutrophils # Man Lymphocytes # (Manual) PT ABG pH POC ABG pCO2 POC ABG pO2 ABG pO2 ABG O2 Saturation ABG Base Excess ABG Hemoglobin ABG Oxyhemoglobin ABG Potassium ABG Chloride ABG Glucose Oxyhemoglobin Carboxyhemoglobin Sodium 171 H* Potassium Chloride Carbon Dioxide BUN Creatinine Glucose POC Glucose 182 H 176 H Hemoglobin A1c Lactic Acid Calcium Phosphorus Magnesium Transferrin AST ALT Alkaline Phosphatase Total Creatine Kinase CK-MB (CK-2) Serum Total Protein Total Protein Albumin Dfzmc-1-Adqmvpfot Bgzml-5-Cklpumnxk Gamma Globulins PEP Interpretation TSH Arterial Blood Glucose Arterial Blood Ionized Calcium Urine WBC (Auto) Urine Creatinine Urine Total Protein Crossmatch 04/22/21 04/22/21 04/22/21 01:04 04:52 06:07 WBC 11.2 H RBC Hgb Hct 44.3 H MCH 27 L RDW 17.1 H Plt Count 86 L Seg Neuts % (Manual) 86.0 H Lymphocytes % (Manual) 13.0 L Nucleated RBC % Seg Neutrophils # Man 9.6 H Lymphocytes # (Manual) PT ABG pH POC ABG pCO2 POC ABG pO2 ABG pO2 ABG O2 Saturation ABG Base Excess ABG Hemoglobin ABG Oxyhemoglobin ABG Potassium ABG Chloride ABG Glucose Oxyhemoglobin Carboxyhemoglobin Sodium Potassium Chloride Carbon Dioxide BUN Creatinine Glucose POC Glucose 143 H 206 H Hemoglobin A1c Lactic Acid Calcium Phosphorus Magnesium Transferrin AST ALT Alkaline Phosphatase Total Creatine Kinase CK-MB (CK-2) Serum Total Protein Total Protein Albumin Gvlqa-6-Zidvcjtul Fujdm-9-Tgludvtjw Gamma Globulins PEP Interpretation TSH Arterial Blood Glucose Arterial Blood Ionized Calcium Urine WBC (Auto) Urine Creatinine Urine Total Protein Crossmatch 04/22/21 04/22/21 04/22/21 06:09 07:18 08:59 WBC RBC Hgb Hct MCH RDW Plt Count Seg Neuts % (Manual) Lymphocytes % (Manual) Nucleated RBC % Seg Neutrophils # Man Lymphocytes # (Manual) PT ABG pH POC ABG pCO2 POC ABG pO2 ABG pO2 ABG O2 Saturation ABG Base Excess ABG Hemoglobin ABG Oxyhemoglobin ABG Potassium ABG Chloride ABG Glucose Oxyhemoglobin Carboxyhemoglobin Sodium Potassium Chloride Carbon Dioxide BUN Creatinine Glucose POC Glucose 163 H 158 H Hemoglobin A1c Lactic Acid Calcium Phosphorus Magnesium Transferrin AST ALT Alkaline Phosphatase Total Creatine Kinase 3105 H CK-MB (CK-2) Serum Total Protein Total Protein Albumin Iemaa-1-Rsicgbfcz Grold-6-Dythgpzkp Gamma Globulins PEP Interpretation TSH Arterial Blood Glucose Arterial Blood Ionized Calcium Urine WBC (Auto) Urine Creatinine Urine Total Protein Crossmatch 04/22/21 04/22/21 04/22/21 08:59 08:59 09:44 WBC RBC Hgb Hct MCH RDW Plt Count Seg Neuts % (Manual) Lymphocytes % (Manual) Nucleated RBC % Seg Neutrophils # Man Lymphocytes # (Manual) PT ABG pH POC ABG pCO2 POC ABG pO2 ABG pO2 ABG O2 Saturation ABG Base Excess ABG Hemoglobin ABG Oxyhemoglobin ABG Potassium ABG Chloride ABG Glucose Oxyhemoglobin Carboxyhemoglobin Sodium 169 H* Potassium 3.5 L Chloride 134.5 H Carbon Dioxide 20 L BUN 95 H Creatinine 3.6 H Glucose 151 H POC Glucose Hemoglobin A1c Lactic Acid Calcium Phosphorus Magnesium 2.80 H Transferrin AST 121 H ALT 75 H Alkaline Phosphatase 137 H Total Creatine Kinase CK-MB (CK-2) Serum Total Protein 5.5 L Total Protein 6.0 L Albumin 2.8 L 2.1 L Thhnf-8-Ipwbuqbhk 0.6 H Kuklr-8-Adzffwmnf 1.0 H Gamma Globulins 0.6 L PEP Interpretation see below H TSH Arterial Blood Glucose Arterial Blood Ionized Calcium Urine WBC (Auto) Urine Creatinine Urine Total Protein Crossmatch 04/22/21 04/22/21 04/22/21 10:24 12:20 13:19 WBC RBC Hgb Hct MCH RDW Plt Count Seg Neuts % (Manual) Lymphocytes % (Manual) Nucleated RBC % Seg Neutrophils # Man Lymphocytes # (Manual) PT ABG pH POC ABG pCO2 POC ABG pO2 ABG pO2 ABG O2 Saturation ABG Base Excess ABG Hemoglobin ABG Oxyhemoglobin ABG Potassium ABG Chloride ABG Glucose Oxyhemoglobin Carboxyhemoglobin Sodium Potassium Chloride Carbon Dioxide BUN Creatinine Glucose POC Glucose 107 H 131 H 147 H Hemoglobin A1c Lactic Acid Calcium Phosphorus Magnesium Transferrin AST ALT Alkaline Phosphatase Total Creatine Kinase CK-MB (CK-2) Serum Total Protein Total Protein Albumin Kcamy-8-Xoirpqzjq Ozrhp-0-Kvntjgrbk Gamma Globulins PEP Interpretation TSH Arterial Blood Glucose Arterial Blood Ionized Calcium Urine WBC (Auto) Urine Creatinine Urine Total Protein Crossmatch 04/22/21 04/22/21 04/22/21 14:16 15:22 15:55 WBC RBC Hgb Hct MCH RDW Plt Count Seg Neuts % (Manual) Lymphocytes % (Manual) Nucleated RBC % Seg Neutrophils # Man Lymphocytes # (Manual) PT ABG pH POC ABG pCO2 POC ABG pO2 ABG pO2 ABG O2 Saturation ABG Base Excess ABG Hemoglobin ABG Oxyhemoglobin ABG Potassium ABG Chloride ABG Glucose Oxyhemoglobin Carboxyhemoglobin Sodium 169 H* Potassium Chloride 133.5 H Carbon Dioxide 19 L BUN 94 H Creatinine 3.8 H Glucose 150 H POC Glucose 154 H 136 H Hemoglobin A1c Lactic Acid Calcium Phosphorus Magnesium Transferrin AST ALT Alkaline Phosphatase Total Creatine Kinase CK-MB (CK-2) Serum Total Protein Total Protein Albumin Bejos-7-Wohbyfoxl Awobo-3-Qqqfcibgs Gamma Globulins PEP Interpretation TSH Arterial Blood Glucose Arterial Blood Ionized Calcium Urine WBC (Auto) Urine Creatinine Urine Total Protein Crossmatch 04/22/21 04/22/21 04/22/21 15:55 16:22 18:11 WBC RBC Hgb Hct MCH RDW Plt Count Seg Neuts % (Manual) Lymphocytes % (Manual) Nucleated RBC % Seg Neutrophils # Man Lymphocytes # (Manual) PT ABG pH POC ABG pCO2 POC ABG pO2 ABG pO2 ABG O2 Saturation ABG Base Excess ABG Hemoglobin ABG Oxyhemoglobin ABG Potassium ABG Chloride ABG Glucose Oxyhemoglobin Carboxyhemoglobin Sodium Potassium Chloride Carbon Dioxide BUN Creatinine Glucose POC Glucose 140 H Hemoglobin A1c 17.1 H Lactic Acid Calcium Phosphorus Magnesium Transferrin AST ALT Alkaline Phosphatase Total Creatine Kinase 2497 H CK-MB (CK-2) Serum Total Protein Total Protein Albumin Ruceu-8-Jsjchegtq Ghryt-0-Lfgkadlig Gamma Globulins PEP Interpretation TSH Arterial Blood Glucose Arterial Blood Ionized Calcium Urine WBC (Auto) Urine Creatinine Urine Total Protein Crossmatch 04/22/21 04/22/21 04/23/21 18:26 23:19 00:27 WBC RBC Hgb Hct MCH RDW Plt Count Seg Neuts % (Manual) Lymphocytes % (Manual) Nucleated RBC % Seg Neutrophils # Man Lymphocytes # (Manual) PT ABG pH POC ABG pCO2 POC ABG pO2 ABG pO2 ABG O2 Saturation ABG Base Excess ABG Hemoglobin ABG Oxyhemoglobin ABG Potassium ABG Chloride ABG Glucose Oxyhemoglobin Carboxyhemoglobin Sodium 162 H* Potassium Chloride Carbon Dioxide BUN Creatinine Glucose POC Glucose 146 H 188 H Hemoglobin A1c Lactic Acid Calcium Phosphorus Magnesium Transferrin AST ALT Alkaline Phosphatase Total Creatine Kinase CK-MB (CK-2) Serum Total Protein Total Protein Albumin Ukyao-6-Wbmromiuk Sierk-6-Seulshtvv Gamma Globulins PEP Interpretation TSH Arterial Blood Glucose Arterial Blood Ionized Calcium Urine WBC (Auto) Urine Creatinine Urine Total Protein Crossmatch 04/23/21 04/23/21 04/23/21 05:23 07:50 08:13 WBC RBC Hgb Hct MCH RDW Plt Count Seg Neuts % (Manual) Lymphocytes % (Manual) Nucleated RBC % Seg Neutrophils # Man Lymphocytes # (Manual) PT ABG pH POC ABG pCO2 POC ABG pO2 ABG pO2 ABG O2 Saturation ABG Base Excess ABG Hemoglobin ABG Oxyhemoglobin ABG Potassium ABG Chloride ABG Glucose Oxyhemoglobin Carboxyhemoglobin Sodium Potassium Chloride Carbon Dioxide BUN Creatinine Glucose POC Glucose 212 H 239 H Hemoglobin A1c Lactic Acid Calcium Phosphorus Magnesium Transferrin AST ALT Alkaline Phosphatase Total Creatine Kinase 1803 H CK-MB (CK-2) Serum Total Protein Total Protein Albumin Whbfl-0-Tecnyehnp Xwdmv-1-Mcawpvvlb Gamma Globulins PEP Interpretation TSH Arterial Blood Glucose Arterial Blood Ionized Calcium Urine WBC (Auto) Urine Creatinine Urine Total Protein Crossmatch 04/23/21 04/23/21 04/23/21 08:13 08:13 12:06 WBC 11.9 H RBC Hgb Hct MCH 26 L RDW 16.5 H Plt Count 72 L Seg Neuts % (Manual) 80.0 H Lymphocytes % (Manual) 5.0 L Nucleated RBC % Seg Neutrophils # Man 9.5 H Lymphocytes # (Manual) 0.6 L PT ABG pH POC ABG pCO2 POC ABG pO2 ABG pO2 ABG O2 Saturation ABG Base Excess ABG Hemoglobin ABG Oxyhemoglobin ABG Potassium ABG Chloride ABG Glucose Oxyhemoglobin Carboxyhemoglobin Sodium 164 H* Potassium Chloride 128.0 H Carbon Dioxide 21 L BUN 93 H Creatinine 3.8 H Glucose 293 H POC Glucose 311 H Hemoglobin A1c Lactic Acid Calcium Phosphorus Magnesium Transferrin AST 99 H ALT 70 H Alkaline Phosphatase 147 H Total Creatine Kinase CK-MB (CK-2) Serum Total Protein Total Protein 6.1 L Albumin 2.0 L Kfsto-8-Vqcpioryw Qcyzq-7-Odnutlbcw Gamma Globulins PEP Interpretation TSH Arterial Blood Glucose Arterial Blood Ionized Calcium Urine WBC (Auto) Urine Creatinine Urine Total Protein Crossmatch 04/23/21 04/23/21 04/24/21 17:35 18:17 02:13 WBC RBC Hgb Hct MCH RDW Plt Count Seg Neuts % (Manual) Lymphocytes % (Manual) Nucleated RBC % Seg Neutrophils # Man Lymphocytes # (Manual) PT ABG pH POC ABG pCO2 POC ABG pO2 ABG pO2 ABG O2 Saturation ABG Base Excess ABG Hemoglobin ABG Oxyhemoglobin ABG Potassium ABG Chloride ABG Glucose Oxyhemoglobin Carboxyhemoglobin Sodium 160 H 160 H Potassium Chloride Carbon Dioxide BUN Creatinine Glucose POC Glucose 370 H Hemoglobin A1c Lactic Acid Calcium Phosphorus Magnesium Transferrin AST ALT Alkaline Phosphatase Total Creatine Kinase CK-MB (CK-2) Serum Total Protein Total Protein Albumin Tqcxm-8-Hagtqnhdr Sccam-7-Qrtejaecl Gamma Globulins PEP Interpretation TSH Arterial Blood Glucose Arterial Blood Ionized Calcium Urine WBC (Auto) Urine Creatinine Urine Total Protein Crossmatch 04/24/21 04/24/21 04/24/21 06:00 06:00 07:46 WBC RBC Hgb Hct MCH 27 L RDW 17.0 H Plt Count 58 L Seg Neuts % (Manual) Lymphocytes % (Manual) 2.0 L Nucleated RBC % Seg Neutrophils # Man 8.9 H Lymphocytes # (Manual) 0.2 L PT ABG pH POC ABG pCO2 POC ABG pO2 ABG pO2 ABG O2 Saturation ABG Base Excess ABG Hemoglobin ABG Oxyhemoglobin ABG Potassium ABG Chloride ABG Glucose Oxyhemoglobin Carboxyhemoglobin Sodium Potassium Chloride Carbon Dioxide BUN Creatinine Glucose POC Glucose 395 H Hemoglobin A1c Lactic Acid Calcium Phosphorus Magnesium 2.90 H Transferrin AST ALT Alkaline Phosphatase Total Creatine Kinase CK-MB (CK-2) Serum Total Protein Total Protein Albumin Aatfa-0-Zfcrlbeqt Gufrc-3-Xdwbredzi Gamma Globulins PEP Interpretation TSH Arterial Blood Glucose Arterial Blood Ionized Calcium Urine WBC (Auto) Urine Creatinine Urine Total Protein Crossmatch 04/24/21 04/24/21 04/24/21 08:15 11:34 13:11 WBC RBC Hgb Hct MCH RDW Plt Count Seg Neuts % (Manual) Lymphocytes % (Manual) Nucleated RBC % Seg Neutrophils # Man Lymphocytes # (Manual) PT ABG pH POC ABG pCO2 POC ABG pO2 ABG pO2 ABG O2 Saturation ABG Base Excess ABG Hemoglobin ABG Oxyhemoglobin ABG Potassium ABG Chloride ABG Glucose Oxyhemoglobin Carboxyhemoglobin Sodium 159 H Potassium Chloride 125.6 H Carbon Dioxide 19 L BUN 94 H Creatinine 3.7 H Glucose 514 H* POC Glucose 422 H 384 H Hemoglobin A1c Lactic Acid Calcium Phosphorus Magnesium Transferrin AST ALT 61 H Alkaline Phosphatase 155 H Total Creatine Kinase CK-MB (CK-2) Serum Total Protein Total Protein 6.1 L Albumin 1.5 L Fftvk-7-Xnqvnmltu Ebjfy-5-Ibdubhczo Gamma Globulins PEP Interpretation TSH Arterial Blood Glucose Arterial Blood Ionized Calcium Urine WBC (Auto) Urine Creatinine Urine Total Protein Crossmatch 04/24/21 04/24/21 04/24/21 14:01 15:03 17:29 WBC RBC Hgb Hct MCH RDW Plt Count Seg Neuts % (Manual) Lymphocytes % (Manual) Nucleated RBC % Seg Neutrophils # Man Lymphocytes # (Manual) PT ABG pH POC ABG pCO2 POC ABG pO2 ABG pO2 ABG O2 Saturation ABG Base Excess ABG Hemoglobin ABG Oxyhemoglobin ABG Potassium ABG Chloride ABG Glucose Oxyhemoglobin Carboxyhemoglobin Sodium Potassium Chloride Carbon Dioxide BUN Creatinine Glucose POC Glucose 423 H 418 H Hemoglobin A1c Lactic Acid Calcium Phosphorus Magnesium Transferrin 112 L AST ALT Alkaline Phosphatase Total Creatine Kinase CK-MB (CK-2) Serum Total Protein Total Protein Albumin Rqtij-6-Cnghadyez Tjylb-6-Kkuuklkbv Gamma Globulins PEP Interpretation TSH Arterial Blood Glucose Arterial Blood Ionized Calcium Urine WBC (Auto) Urine Creatinine Urine Total Protein Crossmatch 04/24/21 04/24/21 04/24/21 18:28 19:41 22:33 WBC RBC Hgb Hct MCH RDW Plt Count Seg Neuts % (Manual) Lymphocytes % (Manual) Nucleated RBC % Seg Neutrophils # Man Lymphocytes # (Manual) PT ABG pH POC ABG pCO2 POC ABG pO2 ABG pO2 ABG O2 Saturation ABG Base Excess ABG Hemoglobin ABG Oxyhemoglobin ABG Potassium ABG Chloride ABG Glucose Oxyhemoglobin Carboxyhemoglobin Sodium Potassium Chloride Carbon Dioxide BUN Creatinine Glucose POC Glucose 335 H 321 H 349 H Hemoglobin A1c Lactic Acid Calcium Phosphorus Magnesium Transferrin AST ALT Alkaline Phosphatase Total Creatine Kinase CK-MB (CK-2) Serum Total Protein Total Protein Albumin Vlaye-2-Pghszdgib Cqqtw-1-Rodojdokf Gamma Globulins PEP Interpretation TSH Arterial Blood Glucose Arterial Blood Ionized Calcium Urine WBC (Auto) Urine Creatinine Urine Total Protein Crossmatch 04/25/21 04/25/21 04/25/21 01:28 02:28 03:25 WBC RBC Hgb Hct MCH RDW Plt Count Seg Neuts % (Manual) Lymphocytes % (Manual) Nucleated RBC % Seg Neutrophils # Man Lymphocytes # (Manual) PT ABG pH POC ABG pCO2 POC ABG pO2 ABG pO2 ABG O2 Saturation ABG Base Excess ABG Hemoglobin ABG Oxyhemoglobin ABG Potassium ABG Chloride ABG Glucose Oxyhemoglobin Carboxyhemoglobin Sodium Potassium Chloride Carbon Dioxide BUN Creatinine Glucose POC Glucose 283 H 247 H 196 H Hemoglobin A1c Lactic Acid Calcium Phosphorus Magnesium Transferrin AST ALT Alkaline Phosphatase Total Creatine Kinase CK-MB (CK-2) Serum Total Protein Total Protein Albumin Ulyup-9-Lvxsfqmyg Vqktx-2-Fecbuethu Gamma Globulins PEP Interpretation TSH Arterial Blood Glucose Arterial Blood Ionized Calcium Urine WBC (Auto) Urine Creatinine Urine Total Protein Crossmatch 04/25/21 04/25/21 04/25/21 04:22 05:40 05:45 WBC RBC Hgb Hct MCH 27 L RDW 17.0 H Plt Count 64 L Seg Neuts % (Manual) 84.0 H Lymphocytes % (Manual) 6.0 L Nucleated RBC % 1.0 H Seg Neutrophils # Man Lymphocytes # (Manual) 0.4 L PT ABG pH POC ABG pCO2 POC ABG pO2 ABG pO2 ABG O2 Saturation ABG Base Excess ABG Hemoglobin ABG Oxyhemoglobin ABG Potassium ABG Chloride ABG Glucose Oxyhemoglobin Carboxyhemoglobin Sodium Potassium Chloride Carbon Dioxide BUN Creatinine Glucose POC Glucose 207 H 204 H Hemoglobin A1c Lactic Acid Calcium Phosphorus Magnesium Transferrin AST ALT Alkaline Phosphatase Total Creatine Kinase CK-MB (CK-2) Serum Total Protein Total Protein Albumin Onbrz-7-Mhbclngdz Uqzas-1-Ufntsxxwc Gamma Globulins PEP Interpretation TSH Arterial Blood Glucose Arterial Blood Ionized Calcium Urine WBC (Auto) Urine Creatinine Urine Total Protein Crossmatch 04/25/21 04/25/21 04/25/21 06:43 07:37 08:11 WBC RBC Hgb Hct MCH RDW Plt Count Seg Neuts % (Manual) Lymphocytes % (Manual) Nucleated RBC % Seg Neutrophils # Man Lymphocytes # (Manual) PT ABG pH POC ABG pCO2 POC ABG pO2 ABG pO2 ABG O2 Saturation ABG Base Excess ABG Hemoglobin ABG Oxyhemoglobin ABG Potassium ABG Chloride ABG Glucose Oxyhemoglobin Carboxyhemoglobin Sodium 148 H D Potassium Chloride 115.7 H Carbon Dioxide 21 L BUN 83 H Creatinine 3.6 H Glucose 247 H POC Glucose 238 H 201 H Hemoglobin A1c Lactic Acid Calcium Phosphorus Magnesium Transferrin AST 63 H ALT 62 H Alkaline Phosphatase 143 H Total Creatine Kinase CK-MB (CK-2) Serum Total Protein Total Protein 5.4 L Albumin 1.4 L Ixanu-7-Rwhbwkfao Avicl-5-Fphougtud Gamma Globulins PEP Interpretation TSH Arterial Blood Glucose Arterial Blood Ionized Calcium Urine WBC (Auto) Urine Creatinine Urine Total Protein Crossmatch 04/25/21 04/25/21 04/25/21 08:11 08:41 09:22 WBC RBC Hgb Hct MCH RDW Plt Count Seg Neuts % (Manual) Lymphocytes % (Manual) Nucleated RBC % Seg Neutrophils # Man Lymphocytes # (Manual) PT ABG pH POC ABG pCO2 POC ABG pO2 ABG pO2 ABG O2 Saturation ABG Base Excess ABG Hemoglobin ABG Oxyhemoglobin ABG Potassium ABG Chloride ABG Glucose Oxyhemoglobin Carboxyhemoglobin Sodium Potassium Chloride Carbon Dioxide BUN Creatinine Glucose POC Glucose 220 H 228 H Hemoglobin A1c Lactic Acid Calcium Phosphorus Magnesium 2.50 H Transferrin AST ALT Alkaline Phosphatase Total Creatine Kinase CK-MB (CK-2) Serum Total Protein Total Protein Albumin Kvtcq-4-Febubbqji Bczyw-2-Bieidxmxl Gamma Globulins PEP Interpretation TSH Arterial Blood Glucose Arterial Blood Ionized Calcium Urine WBC (Auto) Urine Creatinine Urine Total Protein Crossmatch 04/25/21 04/25/21 04/25/21 10:31 11:44 12:23 WBC RBC Hgb Hct MCH RDW Plt Count Seg Neuts % (Manual) Lymphocytes % (Manual) Nucleated RBC % Seg Neutrophils # Man Lymphocytes # (Manual) PT ABG pH POC ABG pCO2 POC ABG pO2 ABG pO2 ABG O2 Saturation ABG Base Excess ABG Hemoglobin ABG Oxyhemoglobin ABG Potassium ABG Chloride ABG Glucose Oxyhemoglobin Carboxyhemoglobin Sodium Potassium Chloride Carbon Dioxide BUN Creatinine Glucose POC Glucose 215 H 191 H 229 H Hemoglobin A1c Lactic Acid Calcium Phosphorus Magnesium Transferrin AST ALT Alkaline Phosphatase Total Creatine Kinase CK-MB (CK-2) Serum Total Protein Total Protein Albumin Wgtbd-9-Xdbjdnnau Azrac-3-Btiqrfans Gamma Globulins PEP Interpretation TSH Arterial Blood Glucose Arterial Blood Ionized Calcium Urine WBC (Auto) Urine Creatinine Urine Total Protein Crossmatch 04/25/21 04/25/21 04/25/21 13:48 14:11 18:01 WBC RBC Hgb Hct MCH RDW Plt Count Seg Neuts % (Manual) Lymphocytes % (Manual) Nucleated RBC % Seg Neutrophils # Man Lymphocytes # (Manual) PT ABG pH POC ABG pCO2 POC ABG pO2 ABG pO2 ABG O2 Saturation ABG Base Excess ABG Hemoglobin ABG Oxyhemoglobin ABG Potassium ABG Chloride ABG Glucose Oxyhemoglobin Carboxyhemoglobin Sodium Potassium Chloride Carbon Dioxide BUN Creatinine Glucose POC Glucose 177 H 161 H 264 H Hemoglobin A1c Lactic Acid Calcium Phosphorus Magnesium Transferrin AST ALT Alkaline Phosphatase Total Creatine Kinase CK-MB (CK-2) Serum Total Protein Total Protein Albumin Tjaau-6-Kkravtrqm Xdomu-8-Oyshrtbzi Gamma Globulins PEP Interpretation TSH Arterial Blood Glucose Arterial Blood Ionized Calcium Urine WBC (Auto) Urine Creatinine Urine Total Protein Crossmatch 04/25/21 04/26/21 04/26/21 21:31 01:19 06:31 WBC RBC Hgb Hct MCH RDW Plt Count Seg Neuts % (Manual) Lymphocytes % (Manual) Nucleated RBC % Seg Neutrophils # Man Lymphocytes # (Manual) PT ABG pH POC ABG pCO2 POC ABG pO2 ABG pO2 ABG O2 Saturation ABG Base Excess ABG Hemoglobin ABG Oxyhemoglobin ABG Potassium ABG Chloride ABG Glucose Oxyhemoglobin Carboxyhemoglobin Sodium Potassium Chloride Carbon Dioxide BUN Creatinine Glucose POC Glucose 371 H 356 H 428 H Hemoglobin A1c Lactic Acid Calcium Phosphorus Magnesium Transferrin AST ALT Alkaline Phosphatase Total Creatine Kinase CK-MB (CK-2) Serum Total Protein Total Protein Albumin Cfmgi-4-Zndirrozr Rcznk-0-Uwfsyfgus Gamma Globulins PEP Interpretation TSH Arterial Blood Glucose Arterial Blood Ionized Calcium Urine WBC (Auto) Urine Creatinine Urine Total Protein Crossmatch 04/26/21 04/26/21 04/26/21 09:13 09:33 09:33 WBC RBC Hgb Hct MCH 27 L RDW 16.9 H Plt Count 58 L Seg Neuts % (Manual) 77.0 H Lymphocytes % (Manual) 4.0 L Nucleated RBC % 2.0 H Seg Neutrophils # Man Lymphocytes # (Manual) 0.3 L PT ABG pH POC ABG pCO2 POC ABG pO2 ABG pO2 ABG O2 Saturation ABG Base Excess ABG Hemoglobin ABG Oxyhemoglobin ABG Potassium ABG Chloride ABG Glucose Oxyhemoglobin Carboxyhemoglobin Sodium Potassium Chloride Carbon Dioxide BUN Creatinine Glucose POC Glucose 454 H Hemoglobin A1c Lactic Acid Calcium Phosphorus 5.60 H D Magnesium Transferrin AST ALT Alkaline Phosphatase Total Creatine Kinase CK-MB (CK-2) Serum Total Protein Total Protein Albumin Jcvcw-6-Gcudwkllz Jyivs-9-Jleutriwp Gamma Globulins PEP Interpretation TSH Arterial Blood Glucose Arterial Blood Ionized Calcium Urine WBC (Auto) Urine Creatinine Urine Total Protein Crossmatch 04/26/21 04/26/21 04/26/21 09:33 11:00 12:36 WBC RBC Hgb Hct MCH RDW Plt Count Seg Neuts % (Manual) Lymphocytes % (Manual) Nucleated RBC % Seg Neutrophils # Man Lymphocytes # (Manual) PT ABG pH 7.281 L POC ABG pCO2 POC ABG pO2 66.4 L ABG pO2 ABG O2 Saturation ABG Base Excess ABG Hemoglobin 10.9 L ABG Oxyhemoglobin 91 L ABG Potassium ABG Chloride ABG Glucose 521 H Oxyhemoglobin Carboxyhemoglobin Sodium Potassium Chloride Carbon Dioxide 19 L BUN 98 H Creatinine 3.8 H Glucose 530 H* POC Glucose 414 H Hemoglobin A1c Lactic Acid Calcium 8.1 L Phosphorus Magnesium Transferrin AST 60 H ALT 72 H Alkaline Phosphatase 168 H Total Creatine Kinase CK-MB (CK-2) Serum Total Protein Total Protein 4.6 L Albumin 1.7 L Ifkve-8-Peozoqrkt Xndgw-7-Zxcddadlk Gamma Globulins PEP Interpretation TSH Arterial Blood Glucose 521 H Arterial Blood Ionized Calcium Urine WBC (Auto) Urine Creatinine Urine Total Protein Crossmatch 04/26/21 04/26/21 04/26/21 15:39 16:18 21:14 WBC RBC Hgb Hct MCH RDW Plt Count Seg Neuts % (Manual) Lymphocytes % (Manual) Nucleated RBC % Seg Neutrophils # Man Lymphocytes # (Manual) PT ABG pH 7.275 L POC ABG pCO2 POC ABG pO2 63.4 L ABG pO2 ABG O2 Saturation ABG Base Excess ABG Hemoglobin 8.4 L ABG Oxyhemoglobin 89.5 L ABG Potassium ABG Chloride 108.0 H ABG Glucose 404 H Oxyhemoglobin Carboxyhemoglobin Sodium Potassium Chloride Carbon Dioxide BUN Creatinine Glucose POC Glucose 324 H 242 H Hemoglobin A1c Lactic Acid Calcium Phosphorus Magnesium Transferrin AST ALT Alkaline Phosphatase Total Creatine Kinase CK-MB (CK-2) Serum Total Protein Total Protein Albumin Xvjfl-7-Inmxleicr Btyvf-2-Ciygcjaea Gamma Globulins PEP Interpretation TSH Arterial Blood Glucose 404 H Arterial Blood Ionized Calcium Urine WBC (Auto) Urine Creatinine Urine Total Protein Crossmatch 04/27/21 04/27/21 04/27/21 00:07 05:47 06:23 WBC RBC Hgb Hct MCH RDW Plt Count Seg Neuts % (Manual) Lymphocytes % (Manual) Nucleated RBC % Seg Neutrophils # Man Lymphocytes # (Manual) PT ABG pH POC ABG pCO2 POC ABG pO2 ABG pO2 ABG O2 Saturation ABG Base Excess ABG Hemoglobin ABG Oxyhemoglobin ABG Potassium ABG Chloride ABG Glucose Oxyhemoglobin Carboxyhemoglobin Sodium Potassium Chloride Carbon Dioxide BUN Creatinine Glucose POC Glucose 282 H 214 H 187 H Hemoglobin A1c Lactic Acid Calcium Phosphorus Magnesium Transferrin AST ALT Alkaline Phosphatase Total Creatine Kinase CK-MB (CK-2) Serum Total Protein Total Protein Albumin Odvno-4-Nwmircrqu Uqlbh-8-Gaggpjecj Gamma Globulins PEP Interpretation TSH Arterial Blood Glucose Arterial Blood Ionized Calcium Urine WBC (Auto) Urine Creatinine Urine Total Protein Crossmatch 04/27/21 04/27/21 04/27/21 07:43 08:30 11:54 WBC RBC Hgb Hct MCH RDW Plt Count Seg Neuts % (Manual) Lymphocytes % (Manual) Nucleated RBC % Seg Neutrophils # Man Lymphocytes # (Manual) PT ABG pH 7.309 L POC ABG pCO2 POC ABG pO2 70.6 L ABG pO2 ABG O2 Saturation ABG Base Excess ABG Hemoglobin 9.16 L ABG Oxyhemoglobin 92.4 L ABG Potassium ABG Chloride ABG Glucose Oxyhemoglobin Carboxyhemoglobin Sodium Potassium Chloride 110.1 H Carbon Dioxide 15 L BUN 109 H Creatinine 4.3 H Glucose 218 H POC Glucose 147 H Hemoglobin A1c Lactic Acid Calcium Phosphorus Magnesium Transferrin AST 53 H ALT Alkaline Phosphatase 148 H Total Creatine Kinase 1000 H CK-MB (CK-2) Serum Total Protein Total Protein 5.2 L Albumin 1.2 L Lvalt-9-Iwrtwiaul Wxcyl-9-Crdptnkyy Gamma Globulins PEP Interpretation TSH Arterial Blood Glucose Arterial Blood Ionized Calcium Urine WBC (Auto) Urine Creatinine Urine Total Protein Crossmatch 04/27/21 04/27/21 04/28/21 21:08 23:28 04:00 WBC 12.6 H RBC 3.59 L Hgb 9.4 L Hct MCH 26 L RDW 16.6 H Plt Count 111 L Seg Neuts % (Manual) Lymphocytes % (Manual) 1.0 L Nucleated RBC % 4.0 H Seg Neutrophils # Man 11.6 H Lymphocytes # (Manual) 0.1 L PT ABG pH POC ABG pCO2 POC ABG pO2 ABG pO2 ABG O2 Saturation ABG Base Excess ABG Hemoglobin ABG Oxyhemoglobin ABG Potassium ABG Chloride ABG Glucose Oxyhemoglobin Carboxyhemoglobin Sodium Potassium Chloride Carbon Dioxide BUN Creatinine Glucose POC Glucose 136 H 201 H Hemoglobin A1c Lactic Acid Calcium Phosphorus Magnesium Transferrin AST ALT Alkaline Phosphatase Total Creatine Kinase CK-MB (CK-2) Serum Total Protein Total Protein Albumin Tcrhc-4-Hjruwvyxq Pmpbb-2-Jlwutkoat Gamma Globulins PEP Interpretation TSH Arterial Blood Glucose Arterial Blood Ionized Calcium Urine WBC (Auto) Urine Creatinine Urine Total Protein Crossmatch 04/28/21 04/28/21 04/28/21 04:00 05:00 05:08 WBC RBC Hgb Hct MCH RDW Plt Count Seg Neuts % (Manual) Lymphocytes % (Manual) Nucleated RBC % Seg Neutrophils # Man Lymphocytes # (Manual) PT 15.3 H ABG pH POC ABG pCO2 POC ABG pO2 ABG pO2 ABG O2 Saturation ABG Base Excess ABG Hemoglobin ABG Oxyhemoglobin ABG Potassium ABG Chloride ABG Glucose Oxyhemoglobin Carboxyhemoglobin Sodium 147 H Potassium 3.5 L D Chloride Carbon Dioxide BUN 79 H Creatinine 3.8 H Glucose 194 H POC Glucose 183 H Hemoglobin A1c Lactic Acid Calcium 8.1 L Phosphorus Magnesium Transferrin AST ALT Alkaline Phosphatase Total Creatine Kinase CK-MB (CK-2) Serum Total Protein Total Protein Albumin Myvxl-8-Qyquxwnmf Jzxqr-7-Afoctnjlc Gamma Globulins PEP Interpretation TSH Arterial Blood Glucose Arterial Blood Ionized Calcium Urine WBC (Auto) Urine Creatinine Urine Total Protein Crossmatch 04/28/21 04/28/21 04/28/21 05:18 11:04 17:16 WBC RBC Hgb Hct MCH RDW Plt Count Seg Neuts % (Manual) Lymphocytes % (Manual) Nucleated RBC % Seg Neutrophils # Man Lymphocytes # (Manual) PT ABG pH POC ABG pCO2 POC ABG pO2 66.5 L ABG pO2 ABG O2 Saturation ABG Base Excess ABG Hemoglobin 9.7 L ABG Oxyhemoglobin 92.5 L ABG Potassium 3.2 L ABG Chloride ABG Glucose 200 H Oxyhemoglobin Carboxyhemoglobin Sodium Potassium Chloride Carbon Dioxide BUN Creatinine Glucose POC Glucose 174 H 135 H Hemoglobin A1c Lactic Acid Calcium Phosphorus Magnesium Transferrin AST ALT Alkaline Phosphatase Total Creatine Kinase CK-MB (CK-2) Serum Total Protein Total Protein Albumin Kpvxs-3-Hwzytyxar Njxqs-4-Dcuhwryjl Gamma Globulins PEP Interpretation TSH Arterial Blood Glucose 200 H Arterial Blood Ionized Calcium 4.5 L Urine WBC (Auto) Urine Creatinine Urine Total Protein Crossmatch 04/28/21 04/28/21 04/29/21 21:14 23:41 01:16 WBC RBC Hgb Hct MCH RDW Plt Count Seg Neuts % (Manual) Lymphocytes % (Manual) Nucleated RBC % Seg Neutrophils # Man Lymphocytes # (Manual) PT ABG pH POC ABG pCO2 POC ABG pO2 ABG pO2 ABG O2 Saturation ABG Base Excess ABG Hemoglobin ABG Oxyhemoglobin ABG Potassium ABG Chloride ABG Glucose Oxyhemoglobin Carboxyhemoglobin Sodium Potassium Chloride Carbon Dioxide BUN Creatinine Glucose POC Glucose 134 H 171 H 236 H Hemoglobin A1c Lactic Acid Calcium Phosphorus Magnesium Transferrin AST ALT Alkaline Phosphatase Total Creatine Kinase CK-MB (CK-2) Serum Total Protein Total Protein Albumin Ydmmt-2-Rakwevzyb Xedov-0-Rbmsrmwbd Gamma Globulins PEP Interpretation TSH Arterial Blood Glucose Arterial Blood Ionized Calcium Urine WBC (Auto) Urine Creatinine Urine Total Protein Crossmatch 04/29/21 04/29/21 04/29/21 04:00 04:00 11:35 WBC 13.3 H RBC 3.12 L Hgb 8.3 L Hct 26.2 L MCH 27 L RDW 16.3 H Plt Count 132 L Seg Neuts % (Manual) Lymphocytes % (Manual) Nucleated RBC % Seg Neutrophils # Man Lymphocytes # (Manual) PT ABG pH POC ABG pCO2 POC ABG pO2 ABG pO2 ABG O2 Saturation ABG Base Excess ABG Hemoglobin ABG Oxyhemoglobin ABG Potassium ABG Chloride ABG Glucose Oxyhemoglobin Carboxyhemoglobin Sodium Potassium Chloride Carbon Dioxide BUN 63 H Creatinine 3.4 H Glucose 249 H POC Glucose 320 H Hemoglobin A1c Lactic Acid Calcium 8.2 L Phosphorus Magnesium Transferrin AST 61 H ALT 71 H Alkaline Phosphatase 170 H Total Creatine Kinase CK-MB (CK-2) Serum Total Protein Total Protein 5.1 L Albumin 1.6 L Gazst-2-Ljvltjvhh Zgdpi-0-Zbqntumrz Gamma Globulins PEP Interpretation TSH Arterial Blood Glucose Arterial Blood Ionized Calcium Urine WBC (Auto) Urine Creatinine Urine Total Protein Crossmatch 04/29/21 04/29/21 04/29/21 13:30 16:01 21:58 WBC RBC Hgb Hct MCH RDW Plt Count Seg Neuts % (Manual) Lymphocytes % (Manual) Nucleated RBC % Seg Neutrophils # Man Lymphocytes # (Manual) PT ABG pH POC ABG pCO2 POC ABG pO2 ABG pO2 ABG O2 Saturation ABG Base Excess ABG Hemoglobin ABG Oxyhemoglobin ABG Potassium ABG Chloride ABG Glucose Oxyhemoglobin Carboxyhemoglobin Sodium Potassium Chloride Carbon Dioxide BUN Creatinine Glucose POC Glucose 297 H 260 H Hemoglobin A1c Lactic Acid Calcium Phosphorus Magnesium Transferrin AST ALT Alkaline Phosphatase Total Creatine Kinase CK-MB (CK-2) Serum Total Protein Total Protein Albumin Wxzkf-1-Akulppfwj Hviza-2-Fdmbtpsxh Gamma Globulins PEP Interpretation TSH Arterial Blood Glucose Arterial Blood Ionized Calcium Urine WBC (Auto) > 182.0 H Urine Creatinine Urine Total Protein Crossmatch 04/29/21 04/30/21 04/30/21 23:35 04:00 04:00 WBC 11.4 H RBC 3.27 L Hgb 8.7 L Hct 27.5 L MCH 27 L RDW 16.6 H Plt Count Seg Neuts % (Manual) Lymphocytes % (Manual) Nucleated RBC % Seg Neutrophils # Man Lymphocytes # (Manual) PT ABG pH POC ABG pCO2 POC ABG pO2 ABG pO2 ABG O2 Saturation ABG Base Excess ABG Hemoglobin ABG Oxyhemoglobin ABG Potassium ABG Chloride ABG Glucose Oxyhemoglobin Carboxyhemoglobin Sodium Potassium 3.1 L Chloride Carbon Dioxide BUN 79 H Creatinine 3.9 H Glucose 275 H POC Glucose 254 H Hemoglobin A1c Lactic Acid Calcium Phosphorus 5.60 H D Magnesium Transferrin AST ALT Alkaline Phosphatase Total Creatine Kinase CK-MB (CK-2) Serum Total Protein Total Protein Albumin Enbpo-5-Rpzbktiee Zwnju-2-Wblbmycyw Gamma Globulins PEP Interpretation TSH Arterial Blood Glucose Arterial Blood Ionized Calcium Urine WBC (Auto) Urine Creatinine Urine Total Protein Crossmatch 04/30/21 04/30/21 04/30/21 05:17 05:31 12:31 WBC RBC Hgb Hct MCH RDW Plt Count Seg Neuts % (Manual) Lymphocytes % (Manual) Nucleated RBC % Seg Neutrophils # Man Lymphocytes # (Manual) PT ABG pH 7.452 H POC ABG pCO2 30.5 L POC ABG pO2 54.5 L ABG pO2 ABG O2 Saturation ABG Base Excess ABG Hemoglobin 10.1 L ABG Oxyhemoglobin 87.4 L ABG Potassium 2.9 L ABG Chloride ABG Glucose 305 H Oxyhemoglobin Carboxyhemoglobin Sodium Potassium Chloride Carbon Dioxide BUN Creatinine Glucose POC Glucose 267 H 259 H Hemoglobin A1c Lactic Acid Calcium Phosphorus Magnesium Transferrin AST ALT Alkaline Phosphatase Total Creatine Kinase CK-MB (CK-2) Serum Total Protein Total Protein Albumin Zhqch-4-Wqfcytlrs Voiuz-9-Hhfolpcjp Gamma Globulins PEP Interpretation TSH Arterial Blood Glucose 305 H Arterial Blood Ionized Calcium Urine WBC (Auto) Urine Creatinine Urine Total Protein Crossmatch 04/30/21 04/30/21 05/01/21 17:50 22:24 00:09 WBC RBC Hgb Hct MCH RDW Plt Count Seg Neuts % (Manual) Lymphocytes % (Manual) Nucleated RBC % Seg Neutrophils # Man Lymphocytes # (Manual) PT ABG pH POC ABG pCO2 POC ABG pO2 ABG pO2 ABG O2 Saturation ABG Base Excess ABG Hemoglobin ABG Oxyhemoglobin ABG Potassium ABG Chloride ABG Glucose Oxyhemoglobin Carboxyhemoglobin Sodium Potassium Chloride Carbon Dioxide BUN Creatinine Glucose POC Glucose 161 H 146 H 149 H Hemoglobin A1c Lactic Acid Calcium Phosphorus Magnesium Transferrin AST ALT Alkaline Phosphatase Total Creatine Kinase CK-MB (CK-2) Serum Total Protein Total Protein Albumin Vamih-9-Roazcxigu Xkcax-6-Tbzbwqsfc Gamma Globulins PEP Interpretation TSH Arterial Blood Glucose Arterial Blood Ionized Calcium Urine WBC (Auto) Urine Creatinine Urine Total Protein Crossmatch 05/01/21 05/01/21 05/01/21 03:30 04:00 04:00 WBC 12.0 H RBC 3.08 L Hgb 8.1 L Hct 25.6 L MCH 26 L RDW 16.3 H Plt Count Seg Neuts % (Manual) Lymphocytes % (Manual) Nucleated RBC % Seg Neutrophils # Man Lymphocytes # (Manual) PT ABG pH 7.493 H POC ABG pCO2 POC ABG pO2 ABG pO2 ABG O2 Saturation ABG Base Excess ABG Hemoglobin 25.0 H ABG Oxyhemoglobin ABG Potassium ABG Chloride ABG Glucose 167 H Oxyhemoglobin Carboxyhemoglobin 0.4 L Sodium Potassium 3.5 L Chloride Carbon Dioxide BUN 62 H Creatinine 3.3 H Glucose 179 H POC Glucose Hemoglobin A1c Lactic Acid Calcium 8.3 L Phosphorus Magnesium Transferrin AST ALT Alkaline Phosphatase Total Creatine Kinase CK-MB (CK-2) Serum Total Protein Total Protein Albumin Swtne-1-Ktkafgkfa Amwvh-5-Qkhtrfjva Gamma Globulins PEP Interpretation TSH Arterial Blood Glucose 167 H Arterial Blood Ionized Calcium Urine WBC (Auto) Urine Creatinine Urine Total Protein Crossmatch 05/01/21 05/01/21 05/01/21 05:48 11:49 16:24 WBC RBC Hgb Hct MCH RDW Plt Count Seg Neuts % (Manual) Lymphocytes % (Manual) Nucleated RBC % Seg Neutrophils # Man Lymphocytes # (Manual) PT ABG pH POC ABG pCO2 POC ABG pO2 ABG pO2 ABG O2 Saturation ABG Base Excess ABG Hemoglobin ABG Oxyhemoglobin ABG Potassium ABG Chloride ABG Glucose Oxyhemoglobin Carboxyhemoglobin Sodium Potassium Chloride Carbon Dioxide BUN Creatinine Glucose POC Glucose 197 H 167 H 157 H Hemoglobin A1c Lactic Acid Calcium Phosphorus Magnesium Transferrin AST ALT Alkaline Phosphatase Total Creatine Kinase CK-MB (CK-2) Serum Total Protein Total Protein Albumin Omirh-4-Vzuxcfrzc Rzaoi-6-Pjjsqaquq Gamma Globulins PEP Interpretation TSH Arterial Blood Glucose Arterial Blood Ionized Calcium Urine WBC (Auto) Urine Creatinine Urine Total Protein Crossmatch 05/01/21 05/02/21 05/02/21 23:25 04:00 04:00 WBC 14.2 H RBC 2.61 L Hgb 6.9 L Hct 22.1 L MCH 27 L RDW 16.1 H Plt Count Seg Neuts % (Manual) Lymphocytes % (Manual) Nucleated RBC % Seg Neutrophils # Man Lymphocytes # (Manual) PT ABG pH POC ABG pCO2 POC ABG pO2 ABG pO2 ABG O2 Saturation ABG Base Excess ABG Hemoglobin ABG Oxyhemoglobin ABG Potassium ABG Chloride ABG Glucose Oxyhemoglobin Carboxyhemoglobin Sodium Potassium Chloride Carbon Dioxide BUN 49 H Creatinine 2.8 H Glucose 117 H POC Glucose 147 H Hemoglobin A1c Lactic Acid Calcium Phosphorus Magnesium Transferrin AST ALT Alkaline Phosphatase Total Creatine Kinase CK-MB (CK-2) Serum Total Protein Total Protein Albumin Mkrxy-0-Jqjfiaptn Nmnhb-2-[place] Gamma Globulins PEP Interpretation TSH Arterial Blood Glucose Arterial Blood Ionized Calcium Urine WBC (Auto) Urine Creatinine Urine Total Protein Crossmatch 05/02/21 05/02/21 05/02/21 04:34 05:23 12:00 WBC RBC Hgb Hct MCH RDW Plt Count Seg Neuts % (Manual) Lymphocytes % (Manual) Nucleated RBC % Seg Neutrophils # Man Lymphocytes # (Manual) PT ABG pH 7.487 H POC ABG pCO2 POC ABG pO2 78.6 L ABG pO2 ABG O2 Saturation ABG Base Excess ABG Hemoglobin 11.5 L ABG Oxyhemoglobin ABG Potassium ABG Chloride ABG Glucose 122 H Oxyhemoglobin Carboxyhemoglobin Sodium Potassium Chloride Carbon Dioxide BUN Creatinine Glucose POC Glucose 119 H Hemoglobin A1c Lactic Acid Calcium Phosphorus Magnesium Transferrin AST ALT Alkaline Phosphatase Total Creatine Kinase CK-MB (CK-2) Serum Total Protein Total Protein Albumin Nzhix-4-Eyfvnheyk Feqtv-6-Sqxfkhwif Gamma Globulins PEP Interpretation TSH Arterial Blood Glucose 122 H Arterial Blood Ionized Calcium Urine WBC (Auto) Urine Creatinine Urine Total Protein Crossmatch See Detail 05/02/21 05/02/21 05/02/21 12:04 17:29 23:36 WBC RBC Hgb Hct MCH RDW Plt Count Seg Neuts % (Manual) Lymphocytes % (Manual) Nucleated RBC % Seg Neutrophils # Man Lymphocytes # (Manual) PT ABG pH POC ABG pCO2 POC ABG pO2 ABG pO2 ABG O2 Saturation ABG Base Excess ABG Hemoglobin ABG Oxyhemoglobin ABG Potassium ABG Chloride ABG Glucose Oxyhemoglobin Carboxyhemoglobin Sodium Potassium Chloride Carbon Dioxide BUN Creatinine Glucose POC Glucose 115 H 120 H 130 H Hemoglobin A1c Lactic Acid Calcium Phosphorus Magnesium Transferrin AST ALT Alkaline Phosphatase Total Creatine Kinase CK-MB (CK-2) Serum Total Protein Total Protein Albumin Mbdku-5-Dexowvlxm Xaopq-0-Gjtnrrokg Gamma Globulins PEP Interpretation TSH Arterial Blood Glucose Arterial Blood Ionized Calcium Urine WBC (Auto) Urine Creatinine Urine Total Protein Crossmatch 05/03/21 05/03/21 04:00 04:00 WBC 13.9 H RBC 3.22 L Hgb 8.7 L Hct 27.4 L MCH 27 L RDW 15.8 H Plt Count Seg Neuts % (Manual) Lymphocytes % (Manual) Nucleated RBC % Seg Neutrophils # Man Lymphocytes # (Manual) PT ABG pH POC ABG pCO2 POC ABG pO2 ABG pO2 ABG O2 Saturation ABG Base Excess ABG Hemoglobin ABG Oxyhemoglobin ABG Potassium ABG Chloride ABG Glucose Oxyhemoglobin Carboxyhemoglobin Sodium 146 H Potassium 3.5 L Chloride 107.5 H Carbon Dioxide BUN 40 H Creatinine 2.5 H Glucose 104 H POC Glucose Hemoglobin A1c Lactic Acid Calcium Phosphorus Magnesium Transferrin AST 53 H ALT Alkaline Phosphatase 149 H Total Creatine Kinase CK-MB (CK-2) Serum Total Protein Total Protein 5.2 L Albumin 1.5 L Jflzj-5-Oefpuvrox Drrvt-6-Iashmqenh Gamma Globulins PEP Interpretation TSH Arterial Blood Glucose Arterial Blood Ionized Calcium Urine WBC (Auto) Urine Creatinine Urine Total Protein Crossmatch Assessment and Plan Assessment and Plan Assessment and plan: This is a 80-year-old female [facility] resident with GERD, hypothyroidism, hyperlipidemia, schizophrenia and dementia admitted with hypothermia, hypon atremia, hypokalemia, lactic acidosis, acute kidney injury, rhabdomyolysis and hyperosmolar nonketotic state. 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 suggest MRA brain and neck -consider LINCOLN -review blood culture -maintain BP with MAP>65 -Hold off on restarting home antipsychotic medications when obtained -Risperidone 3 mg, Donepazil 5 mg -consider EEG -Hold all sedations -start ASA 81 mg and lipitor 40 mg -LDL is pending -cardiac monitering -SQ heparine # Hypotension -Vasopressor support with Levophed -MAP goal above 65 -Blood pressure monitoring per protocol -Home amlodipine 10 mg on hold # Acute hypoxic respiratory failure -s/p Bipap and ventimask -s/p bronchoscopy on 04/26 -Intubated 04/26 with 7.5 oett at 22 lips -Repeat CXR shows increased interstitial prominence of densities in bilateral lungs # Hypoalbuminemia, transaminitis -Presented with transaminitis -Trend LFTs # Severe hypernatremia (resolved), hyperchloremia (resolved), acute kidney injury likely secondary to vasomotor nephropathy, urinary retention, rhabdomyolysis (resolved) -HD initiated 04/27 -Avoid nephrotoxic medications -Trend BMP, CK -Renally dose medications -renal US WNL per read # Sepsis likely 2/2 UTI and PNA -COVID-19 PCR negative -04/26/2021 sputum culture: Roselyn nonalbicans -04/29/2021 UA showed significant pyuria. -Lumbar puncture with CSF showing 14 WBC, 324 RBC, glucose 161, protein 51. -Abx per ID: IV meropenem, renally adjusted -Exchange Luther, urine culture ordered -Trend WBC and fever curve -f/u cultures s/p HHNK, h/o hypothyroidism -Restart home levothyroxine (50 mcg q day) -s/p Insulin drip x2 -SSI, long acting insulin (adjust as needed) -TSH 6.04, T4 0.93 -Avoid hypoglycemia # Leukocytosis, thrombocytopenia (resolved), anemia -HIT (-) -Trend CBC -Transfuse to hemoglobin less than 7 -hbg 6.9 -transfuse one unit PRBC -SCD to bilateral lower extremities while in bed -BUE dopplar US negative for DVT The high probability of a clinically significant, sudden or life threatening deterioration of the [multi] system(s) required my full and direct attention, intervention and personal management. The aggregate critical care time was [60] minutes. This time is in addition to time spent performing reported procedures but includes the following: [x] Data Review and interpretation [x] Patient assessment and monitoring of vital signs [x] Documentation [x] Medication orders and management PLAN 1- Recommend MRA brain and neck can not do CTA due to renal impairment 2- Consider LINCOLN 3- cardiac monitering 4- ASA 81 mg and Lipitor 40 mg 5- review C/s blood and CSF ID is on the case 6- EEG when possible 7- Avoid sedation 8- avoid Hypotension will follow
--- NOTE | 2021-05-03 12:52 | Progress Note ---
Assessment and Plan Cultures: 04/21/2021 blood culture: No growth 04/21/2021 COVID-19 PCR: Negative 04/26/2021 sputum culture: Roselyn nonalbicans 04/29/2021 tracheal aspirate culture: Moderate growth of usual respiratory stanley 04/29/2021 blood culture: No growth 05/02/2021 urine culture: in process A/P: 80-year-old female who is a [facility] resident, with hypothyroidism, GERD, hyperlipidemia, schizophrenia, dementia was admitted on 04/20/2021 after being found unresponsive by the staff: #Septic shock: Likely from pneumonia and UTI. 04/29/2021 UA showed significant pyuria. #Acute respiratory failure: On the vent #Acute renal failure: Renally adjust antibiotics. On dialysis. #Acute metabolic encephalopathy: Initially related to severe hyponatremia which peaked at sodium of 179. Recs: -f/u urine culture -continue IV meropenem, renally adjusted, D2 Juanita Darling MD, FACP, [facility] ([facility] O: [phone] F: [phone] Subjective Date of service: 05/03/21 Principal diagnosis: Acute respiratory failure Interval history: No fever. Remains on the vent. Objective - Exam Narrative Exam: Physical Exam: Constitutional: sedated, intubated, on the vent Head, Ears, Nose: Normocephalic, atraumatic. External ears, nose normal Eyes: Conjunctivae/corneas clear. No icterus. No ptosis. Neck: intubated Oral: intubated Cardiovascular: S1, S2 + Respiratory: AE fair bilaterally and equal GI: Soft, bowel sounds + Musculoskeletal: Anasarca + Skin: No rash or abscess Hem/Lymphatic: No palpable cervical or supraclavicular nodes. No lymphangitis Psych: no agitation Neurological: sedated, intubated, on the vent, exam limited - Constitutional Vitals: Vital Signs Temp Pulse Resp BP Pulse Ox 99.3 F 102 H 18 116/48 97 05/03/21 08:00 05/03/21 12:00 05/03/21 12:00 05/03/21 12:00 05/03/21 12:00 Temperature -Last 24 Hours Temperature 99.3 F Temperature 97.5 F Temperature 99.3 F Temperature 98.9 F Temperature 98.5 F Temperature 97.9 F - Labs CBC & Chem 7: 05/03/21 04:00 05/03/21 04:00 Labs: Abnormal lab results 05/02/21 05/02/21 05/02/21 Range/Units 12:00 17:29 23:36 WBC (4.5-11.0) K/mm3 RBC (3.65-5.03) M/mm3 Hgb (10.1-14.3) gm/dl Hct (30.3-42.9) % MCH (28-32) pg RDW (13.2-15.2) % Sodium (137-145) mmol/L Potassium (3.6-5.0) mmol/L Chloride (98-107) mmol/L BUN (7-17) mg/dL Creatinine (0.6-1.2) mg/dL Glucose (65-100) mg/dL POC Glucose 120 H 130 H (70-105) mg/dL AST (5-40) units/L Alkaline Phosphatase (35-129) units/L Total Protein (6.3-8.2) g/dL Albumin (3.9-5) g/dL Crossmatch See Detail 05/03/21 05/03/21 Range/Units 04:00 04:00 WBC 13.9 H (4.5-11.0) K/mm3 RBC 3.22 L (3.65-5.03) M/mm3 Hgb 8.7 L (10.1-14.3) gm/dl Hct 27.4 L (30.3-42.9) % MCH 27 L (28-32) pg RDW 15.8 H (13.2-15.2) % Sodium 146 H (137-145) mmol/L Potassium 3.5 L (3.6-5.0) mmol/L Chloride 107.5 H (98-107) mmol/L BUN 40 H (7-17) mg/dL Creatinine 2.5 H (0.6-1.2) mg/dL Glucose 104 H (65-100) mg/dL POC Glucose (70-105) mg/dL AST 53 H (5-40) units/L Alkaline Phosphatase 149 H (35-129) units/L Total Protein 5.2 L (6.3-8.2) g/dL Albumin 1.5 L (3.9-5) g/dL Crossmatch
[2021-05-03] MEDS: MEROPENEM/NS 1 GRAM/100 ML 1 GRAM/100 ML BAG IV SCH (14:04)
--- NOTE | 2021-05-03 14:46 | Progress Note ---
<TANYAHENRIETTA ShannonJericho - Last Filed: 05/03/21 14:47> Assessment and Plan Assessment and plan: This is a 80-year-old female shelter resident with GERD, hypothyroidism, hyperlipidemia, schizophrenia and dementia admitted with hypothermia, hyponatremia, hypokalemia, lactic acidosis, acute kidney injury, rhabdomyolysis and hyperosmolar nonketotic state. Neuro: Acute CVA, acute metabolic encephalopathy, normal pressure hydrocephalus -CT head shows lateral ventricles and third ventricle dilation, raises possibility of normal pressure hydrocephalus -Neurology and neurosurgery consulted, appreciate recommendations -neurosurgery has no acute interventions -Will obtain MRI brain today -04/29 s/p spinal tap removal 24 mL, mental is unchanged -csf fluid showed {14 wbc,324 rbc,normal protein and glucose ,c/s is unremarkable so far} -MRI brain w/o gd is remarkable for multiple ischemic event cortical as well as subcortical in both hemisphere and in all distribuation with slight petechial hemorrhage is noted findings is suggestive of possible embolic event with water shed infarct can not be totally excluded. -MRA/MRV pending -ASA 81 and lipitor -LDL pending -PT/ST/OT consulted -Aspiration/seizure precautions -Maintain sleep-wake cycle -Avoid delirium -Correct electrolyte derangements -Hold off on restarting home antipsychotic medications when obtained -Risperidone 3 mg, Donepazil 5 mg Cardio: Hypotension -Vasopressor support with Levophed -MAP goal above 65 -started on Midodrine -Blood pressure monitoring per protocol -Home amlodipine 10 mg on hold Respiratory: Acute hypoxic respiratory failure -s/p Bipap and ventimask -s/p bronchoscopy on 04/26 -Intubated 04/26 with 7.5 oett at 22 lips -Am vent settings: AC Rate 14, TV 450, Peep 8, FiO2 40% -see RT notes for titration -AM ABG noted -s/p racimec epi x2 04/22 and 04/23 -Supplemental oxygen as needed -SPO2 monitoring -Pulmonary hygiene -Repeat CXR shows increased interstitial prominence of densities in bilateral lungs GI: Hypoalbuminemia, transaminitis -Presented with transaminitis -Trend LFTs -Ntr consult for TF -FWF 140 ml Q 4 hr -24 hours +1435 ml -BR: Senokot -PPI -Nutritional supplementation -BMS in place : Severe hypernatremia (resolved), hyperchloremia (resolved), acute kidney injury likely secondary to vasomotor nephropathy, urinary retention, rhabdomyolysis (resolved) -FeNA 0.50 indicating prerenal sate -Nephrology consulted, appreciate recommendations -HD initiated 04/27 -HD per nephrology -Luther catheter placed for strict intake and output; changed 05/02 -Avoid nephrotoxic medications -Trend BMP, CK -Renally dose medications -renal US WNL per read ID: Sepsis likely 2/2 UTI and PNA -ID consulted, appreciate recommendations -COVID-19 PCR negative -04/26/2021 sputum culture: Roselyn nonalbicans -04/29/2021 UA showed significant pyuria. -UC pending -Lumbar puncture with CSF showing 14 WBC, 324 RBC, glucose 161, protein 51. -Abx per ID: IV meropenem, renally adjusted -Trend WBC and fever curve -f/u cultures Endo: s/p HHNK, h/o hypothyroidism -Restarted home levothyroxine (50 mcg q day) -s/p Insulin drip x2 -SSI -long acting insuling stopped today -TSH 6.04, T4 0.93 -Avoid hypoglycemia Heme: Leukocytosis, thrombocytopenia (resolved), anemia -HIT (-) -Trend CBC -Transfuse to hemoglobin less than 7 - s/p 1 unit PRBC -SCD to bilateral lower extremities while in bed -BUE dopplar US negative for DVT The high probability of a clinically significant, sudden or life threatening deterioration of the [multi] system(s) required my full and direct attention, intervention and personal management. The aggregate critical care time was [90] minutes. This time is in addition to time spent performing reported procedures but includes the following: [x] Data Review and interpretation [x] Patient assessment and monitoring of vital signs [x] Documentation [x] Medication orders and management Disposition Plan: icu Total Time Spent with Patient (Minutes): 90 History Interval history: This is a 80-year-old female who was shelter resident at [facility] with GERD, hypothyroidism, hyperlipidemia, schizophrenia and dementia presented to the emergency department on 04/20 after being found unresponsive by the staff v ia EMS. Per EMS glucose levels read as high. Work-up in the emergency department revealed severe hypernatremia, leukocytosis, metabolic acidosis, hyperchloremia, elevated BUN/creatinine, lactic acidosis and hyperglycemia. Patient was also hypothermic on admit. CT head showed findings suggestive of the possibility of normal pressure hydrocephalus. Patient was admitted to the hospitalist service with acute metabolic encephalopathy, diabetic hyperosmolar nonketotic state, acute kidney injury, hypernatremia, rhabdomyolysis and leukocytosis with consults to nephrology and [facility]. 04/21: Given 1 L LR bolus per nephrology and D5W increased to 125 mL's per hour, COVID-19 PCR pending, CXR and ABG ordered as patient was weaned from BiPAP to 3 L nasal cannula however was uptitrated back to nonrebreather. Will obtain blood cultures x2 given her leukocytosis and hypothermia. Replace potassium. Neurosurgery and neurology consulted and Luther catheter placed. 04/22: Improvement to sodium noted, slight hypokalemia which will be repleted, slight improvement to renal function, LFTs and rhabdomyolysis. Seen by neurosurgery today. Patient still making urine. transition to ssi and start TF as AG 15 04/23/2021: Given racemic epinephrine again due to stridor, continue IV fluids per nephrology, continue to trend sodium and BMP. 04/24/2021: /30 increased d/t hyperglycemia but recent BMP showed BG>300, gave additional 5 units IV insulin and ordered 5 units TID scheduled. However after IV insulin her PCOT was 400. Start on insulin gtt for hyperglycemia. Per RN she was not of IV D5 overnight d/t having one IV which was needed for emergency. Day RN did start dextrose. Remains with hyperglycemia. 04/25: Patient obtunded, withdrawal to pain only, on 50%Venti mask SPO2 abobe 92%. Plan to transition to SubQ insulin. Patient with mild hypernatremia this am, FWF added, will stop IVF for now. 04/26: Patient s/p intubation this am. Mentation is unchanged, plan for MRI brain today per NeuroSurg. Still hyperglycemic, hypernatremia improved, D5W D/katlyn, and basal insulin adjusted. 04/27: Bronch overnight. CXR with mild improvement. D/w Nephro plan for HD today, RIJ VasCath inserted. MRI on hold per [facility] patient is too unstable at this time, plan for possible spinal drained tomorrow to see if mentation will improve. 04/28: Tolerated HD overnight, only UF. Mentation remains the same. D/w CCM plan for possible large volume spinal tap under fluoroscopy today. Plan for possible HD again today. Continue FWF for elevated Na. 04/29: MARY overnight. Plan for spinal tap this am. febrile overnight with leukocytosis, remains on pressors and more tachycardic now. Will panculture patient, and empiric IV was initiated. Remains hyperglycemic, basal insulin adjusted. 04/30: Patient's mentation remains unchanged post spinal tap. Plan for possible MRI brain next week. Afebrile overnight and leukocytosis improved, However, vent settings are going up and this am ABG with hypoxia, this am CXR with worsening opacities. Patient with 3+ pitting edema. Continue HD per Nephro. Continue current empiric IV abx, f/u on culture data, might need to get ID on board if worsen. 05/01: Mentation is unchanged, still on pressors. Febrile this am, continue IV abx, ID consulted. 3L out yesterday, plan for HD again tomorrow. Plt count improved, might need to restart AC, will D/w CCM. 05/02: No change in mentation and she is now noted to be decorticating to pain -> MRI brain ordered. Scheduled for HD today. ID consult completed. 05/03: Neurology consulted given MRI findings of multiple acute CVAs, LINCOLN ordered, EEG pending, started on aspirin and Lipitor. updated [facility] Hospitalist Physical - Constitutional Vitals: Temp Pulse Resp BP Pulse Ox 100.6 F H 106 H 18 116/48 97 05/03/21 12:00 05/03/21 12:10 05/03/21 12:00 05/03/21 12:10 05/03/21 12:10 General appearance: Present: no acute distress, other (Intubated and unresponsive) - EENT Eyes: Present: PERRL, EOM intact - Neck Neck: Present: normal ROM - Respiratory Respiratory effort: normal Respiratory: bilateral: diminished - Cardiovascular Rhythm: regular Heart Sounds: Present: S1 & S2. Absent: systolic murmur, diastolic murmur - Extremities Extremities: no ischemia, pulses intact, pulses symmetrical, normal temperature, normal color Extremity abnormal: edema Peripheral Pulses: within normal limits - Abdominal General gastrointestinal: soft, non-tender, non-distended, normal bowel sounds - Integumentary Integumentary: Present: warm, dry - Psychiatric Psychiatric: other (sedated) - Neurologic Neurologic: other (decorticate positioning to painful stimuli) - Allied Health Allied health notes reviewed: nursing, RT, social work HEART Score - HEART Score Troponin: Troponin T 0.021 ng/mL (0.00-0.029) 04/20/21 17:10 Results - Labs CBC & Chem 7: 05/03/21 04:00 05/03/21 04:00 Labs: Laboratory Last Values WBC 13.9 K/mm3 (4.5-11.0) H 05/03/21 04:00 RBC 3.22 M/mm3 (3.65-5.03) L 05/03/21 04:00 Hgb 8.7 gm/dl (10.1-14.3) L 05/03/21 04:00 Hct 27.4 % (30.3-42.9) L 05/03/21 04:00 MCV 85 fl (79-97) 05/03/21 04:00 MCH 27 pg (28-32) L 05/03/21 04:00 MCHC 32 % (30-34) 05/03/21 04:00 RDW 15.8 % (13.2-15.2) H 05/03/21 04:00 Plt Count 203 K/mm3 (140-440) 05/03/21 04:00 Add Manual Diff Complete 04/28/21 04:00 Total Counted 100 04/28/21 04:00 Seg Neutrophils % Diver'S Tender 04/28/21 04:00 Seg Neuts % (Manual) 77.0 % (40.0-70.0) H 04/26/21 09:33 Band Neutrophils % 2.0 % 04/28/21 04:00 Lymphocytes % (Manual) 1.0 % (13.4-35.0) L 04/28/21 04:00 Reactive Lymphs % (Man) 0 % 04/28/21 04:00 Monocytes % (Manual) 1.0 % (0.0-7.3) 04/28/21 04:00 Eosinophils % (Manual) 3.0 % (0.0-4.3) 04/28/21 04:00 Metamyelocytes % 1.0 % 04/28/21 04:00 Myelocytes % 0 % 04/28/21 04:00 Promyelocytes % 0 % 04/28/21 04:00 Blast Cells % 0 % 04/28/21 04:00 Nucleated RBC % 4.0 % (0.0-0.9) H 04/28/21 04:00 Seg Neutrophils # Man 11.6 K/mm3 (1.8-7.7) H 04/28/21 04:00 Band Neutrophils # 0.3 K/mm3 04/28/21 04:00 Lymphocytes # (Manual) 0.1 K/mm3 (1.2-5.4) L 04/28/21 04:00 Abs React Lymphs (Man) 0.0 K/mm3 04/28/21 04:00 Monocytes # (Manual) 0.1 K/mm3 (0.0-0.8) 04/28/21 04:00 Eosinophils # (Manual) 0.4 K/mm3 (0.0-0.4) 04/28/21 04:00 Basophils # (Manual) 0.0 K/mm3 (0.0-0.1) 04/28/21 04:00 Metamyelocytes # 0.1 K/mm3 04/28/21 04:00 Myelocytes # 0.0 K/mm3 04/28/21 04:00 Promyelocytes # 0.0 K/mm3 04/28/21 04:00 Blast Cells # 0.0 K/mm3 04/28/21 04:00 WBC Morphology Not Reportable 04/28/21 04:00 Hypersegmented Neuts Not Reportable 04/28/21 04:00 Hyposegmented Neuts Not Reportable 04/28/21 04:00 Hypogranular Neuts Not Reportable 04/28/21 04:00 Smudge Cells Not Reportable 04/28/21 04:00 Toxic Granulation Not Reportable 04/28/21 04:00 Toxic Vacuolation Not Reportable 04/28/21 04:00 Dohle Bodies Not Reportable 04/28/21 04:00 Pelger-Huet Anomaly Not Reportable 04/28/21 04:00 Moni Rods Not Reportable 04/28/21 04:00 Platelet Estimate Consistent w auto 04/28/21 04:00 Clumped Platelets Not Reportable 04/28/21 04:00 Plt Clumps, EDTA Not Reportable 04/28/21 04:00 Large Platelets Few 04/28/21 04:00 Giant Platelets Not Reportable 04/28/21 04:00 Platelet Satelliting Not Reportable 04/28/21 04:00 Plt Morphology Comment Not Reportable 04/28/21 04:00 RBC Morphology Not Reportable 04/28/21 04:00 Dimorphic RBCs Not Reportable 04/28/21 04:00 Polychromasia Not Reportable 04/28/21 04:00 Hypochromasia Not Reportable 04/28/21 04:00 Poikilocytosis Not Reportable 04/28/21 04:00 Anisocytosis Not Reportable 04/28/21 04:00 Microcytosis Not Reportable 04/28/21 04:00 Macrocytosis Not Reportable 04/28/21 04:00 Spherocytes Not Reportable 04/28/21 04:00 Pappenheimer Bodies Not Reportable 04/28/21 04:00 Sickle Cells Not Reportable 04/28/21 04:00 Target Cells 1+ 04/28/21 04:00 Tear Drop Cells Not Reportable 04/28/21 04:00 Ovalocytes Not Reportable 04/28/21 04:00 Helmet Cells Not Reportable 04/28/21 04:00 Parkinson-Numidia Bodies Not Reportable 04/28/21 04:00 [place] Rings Not Reportable 04/28/21 04:00 Salvador Cells Not Reportable 04/28/21 04:00 Bite Cells Not Reportable 04/28/21 04:00 Crenated Cell Not Reportable 04/28/21 04:00 Elliptocytes Not Reportable 04/28/21 04:00 Acanthocytes (Spur) Not Reportable 04/28/21 04:00 Rouleaux Not Reportable 04/28/21 04:00 Hemoglobin C Crystals Not Reportable 04/28/21 04:00 Schistocytes Not Reportable 04/28/21 04:00 Malaria parasites Not Reportable 04/28/21 04:00 Herrera Bodies Not Reportable 04/28/21 04:00 Hem Pathologist Commnt No 04/28/21 04:00 PT 15.3 Sec. (12.2-14.9) H 04/28/21 05:00 INR 1.09 (0.87-1.13) 04/28/21 05:00 APTT 36.6 Sec. (24.2-36.6) 04/28/21 05:00 Heparin Anti-Xa, Unfract Negative (Negative) 04/24/21 17:29 ABG pH 7.487 (7.320-7.450) H 05/02/21 04:34 POC ABG pCO2 35.3 mmHg (32.0-48.0) 05/02/21 04:34 ABG pCO2 31.6 mm Hg 04/21/21 15:47 POC ABG pO2 78.6 mmHg (83-108) L 05/02/21 04:34 ABG pO2 168.1 mm Hg (80.0-90.0) H 04/21/21 15:47 POC ABG HCO3 26.1 05/02/21 04:34 ABG HCO3 23.3 mmol/L (20.0-26.0) 04/21/21 15:47 ABG O2 Saturation 96.0 (0-100) 05/02/21 04:34 ABG O2 Content 12.7 (0.0-44) 04/21/21 15:47 POC ABG Base Excess 2.9 05/02/21 04:34 ABG Base Excess 0.3 mmol/L (-2.0-3.0) 04/21/21 15:47 ABG Hemoglobin 11.5 (12.0-17.5) L 05/02/21 04:34 ABG Oxyhemoglobin 95.1 (94-98) 05/02/21 04:34 ABG Carboxyhemoglobin 1.0 % (0.0-5.0) 04/21/21 15:47 ABG Methemoglobin 0.3 (0.0-1.5) 05/02/21 04:34 ABG Sodium 138.6 mmol/L (136.0-145.0) 05/02/21 04:34 ABG Potassium 3.4 mmol/L (3.40-4.50) 05/02/21 04:34 ABG Chloride 105.0 mmol/L (98-107) 05/02/21 04:34 ABG Glucose 122 mg/dL (65-95) H 05/02/21 04:34 VBG pH 7.397 (7.320-7.420) 04/20/21 17:10 Oxyhemoglobin 97.5 % (95.0-99.0) 04/21/21 15:47 Carboxyhemoglobin 0.6 (0.5-1.5) 05/02/21 04:34 FiO2 100 % 04/21/21 15:47 FiO2 % 40.0 05/02/21 04:34 Sodium 146 mmol/L (137-145) H 05/03/21 04:00 Potassium 3.5 mmol/L (3.6-5.0) L 05/03/21 04:00 Chloride 107.5 mmol/L (98-107) H 05/03/21 04:00 Carbon Dioxide 26 mmol/L (22-30) 05/03/21 04:00 Anion Gap 16 mmol/L 05/03/21 04:00 BUN 40 mg/dL (7-17) H 05/03/21 04:00 Creatinine 2.5 mg/dL (0.6-1.2) H 05/03/21 04:00 Estimated GFR 22 ml/min 05/03/21 04:00 BUN/Creatinine Ratio 16 % 05/03/21 04:00 Glucose 104 mg/dL (65-100) H 05/03/21 04:00 POC Glucose 100 mg/dL (70-105) 05/03/21 12:34 Hemoglobin A1c 17.1 % (4-6) H 04/22/21 15:55 Lactic Acid 1.90 mmol/L (0.7-2.0) 04/20/21 19:56 Calcium 9.5 mg/dL (8.4-10.2) 05/03/21 04:00 Phosphorus 3.80 mg/dL (2.5-4.5) 05/02/21 04:00 Magnesium 1.80 mg/dL (1.7-2.3) 05/02/21 04:00 Iron 62 ug/dL (37-170) 04/24/21 17:29 TIBC 285 mcg/dL (250-450) 04/24/21 17:29 % Saturation 21.75 % 04/24/21 17:29 Transferrin 112 mg/dl (192-382) L 04/24/21 17:29 Total Bilirubin 0.20 mg/dL (0.1-1.2) 05/03/21 04:00 Direct Bilirubin < 0.2 mg/dL (0-0.2) 04/29/21 04:00 Indirect Bilirubin 0.1 mg/dL 04/29/21 04:00 AST 53 units/L (5-40) H 05/03/21 04:00 ALT 55 units/L (7-56) 05/03/21 04:00 Alkaline Phosphatase 149 units/L (35-129) H 05/03/21 04:00 Ammonia 29.0 umol/L (25-60) 04/20/21 17:10 Total Creatine Kinase 1000 units/L (30-135) H 04/27/21 07:43 CK-MB (CK-2) 36.0 ng/mL (0.0-4.0) H 04/20/21 17:10 CK-MB (CK-2) Rel Index 0.9 (0-4) 04/20/21 17:10 Troponin T 0.021 ng/mL (0.00-0.029) 04/20/21 17:10 Serum Total Protein 5.5 g/dL (6.1-8.1) L 04/22/21 08:59 Total Protein 5.2 g/dL (6.3-8.2) L 05/03/21 04:00 Albumin 1.5 g/dL (3.9-5) L 05/03/21 04:00 Albumin/Globulin Ratio 0.4 % 05/03/21 04:00 Dmzwc-8-Oysmfgdas 0.6 g/dL (0.2-0.3) H 04/22/21 08:59 Etagm-4-Lkcvflssd 1.0 g/dL (0.5-0.9) H 04/22/21 08:59 Beta Globulins 0.3 g/dL (0.2-0.5) 04/22/21 08:59 Gamma Globulins 0.6 g/dL (0.8-1.7) L 04/22/21 08:59 Abnorm Protein Band 1 see below 04/22/21 08:59 PEP Interpretation see below H 04/22/21 08:59 TSH 6.040 mlU/mL (0.270-4.200) H 04/20/21 17:10 Free T4 0.93 ng/dL (0.76-1.46) 04/20/21 17:10 Arterial Blood Glucose 122 mg/dL (65-95) H 05/02/21 04:34 Arterial Blood Ionized Calcium 4.5 mg/dL (4.6-5.3) L 04/28/21 05:18 Urine Color Yellow (Yellow) 04/29/21 13:30 Urine Turbidity Turbid (Clear) 04/29/21 13:30 Urine pH 5.0 (5.0-7.0) 04/29/21 13:30 Ur Specific Weott 1.010 (1.003-1.030) 04/29/21 13:30 Urine Protein 100 mg/dl mg/dL (Negative) 04/29/21 13:30 Urine Glucose (UA) 150 mg/dL (Negative) 04/29/21 13:30 Urine Ketones Neg mg/dL (Negative) 04/29/21 13:30 Urine Blood Lg (Negative) 04/29/21 13:30 Urine Nitrite Neg (Negative) 04/29/21 13:30 Urine Bilirubin Neg (Negative) 04/29/21 13:30 Urine Urobilinogen < 2.0 mg/dL (<2.0) 04/29/21 13:30 Ur Leukocyte Esterase Lg (Negative) 04/29/21 13:30 Urine WBC (Auto) > 182.0 /HPF (0.0-6.0) H 04/29/21 13:30 Urine RBC (Auto) > 182.0 /HPF (0.0-6.0) 04/29/21 13:30 U Epithel Cells (Auto) 4.0 /HPF (0-13.0) 04/29/21 13:30 Urine WBC Clumps 3+ /HPF 04/29/21 13:30 Urine Mucus Few /HPF 04/29/21 13:30 Urine Yeast (Budding) 3+ /HPF 04/29/21 13:30 Urine Osmolality 446 Mosm/kg 04/21/21 08:01 Urine Creatinine 44.3 mg/dL (0.1-20.0) H 04/21/21 08:01 Urine Sodium 71 mmol/L 04/21/21 08:01 Urine Total Protein 12 mg/dL (5-11.8) H 04/21/21 08:01 CSF Appearance Clear 04/29/21 11:45 CSF Color Colorless 04/29/21 11:45 CSF WBC 14 /mm3 (1-10) 04/29/21 11:45 CSF RBC 324 /mm3 (0-0) 04/29/21 11:45 CSF Seg Neutrophils 50.0 % (0-6) 04/29/21 11:45 CSF Lymphocytes % 40.0 % (40-80) 04/29/21 11:45 CSF Reactive Lymphs Not Reportable 04/29/21 11:45 CSF Monocytes % 10.0 % (15-45) 04/29/21 11:45 CSF Eosinophils % Not Reportable 04/29/21 11:45 CSF Basophils Not Reportable 04/29/21 11:45 CSF Pathologist Review C 04/29/21 11:45 CSF Glucose 161 mg/dL 04/29/21 11:45 CSF Total Protein 51 mg/dL 04/29/21 11:45 Plasma/Serum Alcohol < 0.01 % (0-0.07) 04/20/21 17:10 Heparin-induced Plt Ab Negative (Negative) 04/24/21 17:29 UF Heparin High Dose 1 % Release 04/24/21 17:29 EFE UFH Low Dose 0.1 0 % Release 04/24/21 17:29 EFE UFH Low Dose 0.5 0 % Release 04/24/21 17:29 Coronavirus (PCR) Negative (Negative) 04/21/21 Unknown Hepatitis A IgM Ab Non-reactive (NonReactive) 04/27/21 12:49 Hep Bs Antigen Nonreactive (Negative) 04/27/21 12:49 Hep B Core IgM Ab Non-reactive (NonReactive) 04/27/21 12:49 Hepatitis C Antibody Non-reactive (NonReactive) 04/27/21 12:49 Blood Type O POSITIVE 05/02/21 12:00 Antibody Screen Negative 05/02/21 12:00 Crossmatch See Detail 05/02/21 12:00 Microbiology: Microbiology 04/29/21 13:15 Peripheral/Venous Blood Culture - Preliminary NO GROWTH AFTER 72 HOURS Luther/IV: Voiding Method Indwelling Catheter Active Medications - Current Medications Current Medications: Generic Name Dose Route Start Last Admin Trade Name Freq PRN Reason Stop Dose Admin Acetaminophen 650 mg 04/20/21 21:31 05/01/21 18:15 Acetaminophen 325 Mg Tab PO 650 mg Q4H PRN Administration Pain MILD(1-3)/Fever >100.5/TURCIOS Albuterol 2.5 mg 04/22/21 14:49 04/23/21 15:18 Albuterol 2.5 Mg/3 Ml Nebu IH 2.5 mg Q4HRT PRN Administration Shortness Of Breath Lipase/Protease/Amylase 1 each 04/25/21 14:13 Lipase 10,500/Protease 25,000/Amylase 43,750 (Units) Dr Vasquez FEEDTUBE PRN PRN For Clogged Feeding Tube Aspirin 81 mg 05/03/21 11:00 05/03/21 11:28 Aspirin 81 Mg Tab Chew PO 81 mg QDAY AZIZA Administration Atorvastatin Calcium 40 mg 05/03/21 22:00 Atorvastatin 40 Mg Tab PO QHS AZIZA Dextrose 50 ml 04/24/21 11:36 Dextrose 50% In Water (25gm) 50 Ml Syringe IV Q30MIN PRN Hypoglycemia Protocol Famotidine 10 mg 04/27/21 10:00 05/03/21 09:21 Famotidine 10 Mg Tab FEEDTUBE 10 mg BID AZIZA Administration Hydralazine HCl 10 mg 04/24/21 21:22 Hydralazine 20 Mg/1 Ml Inj IV Q4HR PRN elevated BP Hydrophilic Ointment 1 applic 04/26/21 11:16 Lip Therapy Vaseline TP Q2HR PRN Dry Lips NORepinephrine/NS 8 MG-250 ML 8 mg in 250 mls @ 3.75 mls/hr 04/26/21 16:00 05/03/21 01:00 Norepinephrine/Ns 8 Mg-250 Ml (Double Conc) IV 2 mcg/min TITRATE AZIZA 3.75 mls/hr Titration Protocol 2 MCG/MIN Sodium Chloride 100 mls @ 999 mls/hr 05/01/21 12:44 Nacl 0.9% IV MITCH PRN Hypotension MEROPENEM/NS 1 GRAM/100 ML 1 gram in 100 mls @ 100 mls/hr 05/03/21 15:00 05/03/21 14:04 Merrem/Ns 1 Gram/100 Ml IV 100 mls/hr 1500 AZIZA Administration Protocol Insulin Human Lispro 0 unit 04/25/21 18:00 05/03/21 12:49 Insulin Lispro 100 Unit/Ml SUB-Q Not Given Q6HR AZIZA Protocol Levothyroxine Sodium 50 mcg 05/03/21 06:00 05/03/21 05:34 Levothyroxine 50 Mcg Tab PO 50 mcg DAILY@0600 AZIZA Administration Lorazepam 1 mg 04/26/21 11:15 04/30/21 23:00 Lorazepam 2 Mg/Ml Vial IV 1 mg Q4H PRN Administration Sedation Metoclopramide HCl 5 mg 04/20/21 21:31 Metoclopramide 10 Mg/2 Ml Inj IV Q6H PRN Nausea And Vomiting Midodrine 5 mg 05/03/21 11:00 05/03/21 11:28 Midodrine 5 Mg Tab PO 5 mg TID AZIZA Administration Multi-Ingred Cream/Lotion/Oil/Oint 1 applic 04/26/21 11:16 Mineral Oil/Petrolatum, White Ophth Oint 3.5 Gm OU Q4HR PRN Dry Eye(s) Ondansetron HCl 4 mg 04/20/21 21:31 Ondansetron 4 Mg/2 Ml Inj IV Q8H PRN Nausea And Vomiting Senna/Docusate Sodium 1 tab 04/26/21 22:00 05/03/21 10:05 Sennosides/Docusate Sodium 8.6/50 Mg Tab FEEDTUBE Not Given BID AZIZA Simple Syrup 15 ml 04/25/21 14:13 Simple Syrup 15 Ml FEEDTUBE PRN PRN Hypoglycemia Simple Syrup 30 ml 04/25/21 14:13 Simple Syrup 15 Ml FEEDTUBE PRN PRN Hypoglycemia Sodium Bicarbonate 325 mg 04/25/21 14:13 04/27/21 13:00 Sodium Bicarbonate 325 Mg Tab FEEDTUBE 325 mg PRN PRN Administration For Clogged Feeding Tube Sodium Bicarbonate 1,300 mg 04/27/21 14:00 05/03/21 13:28 Sodium Bicarbonate 650 Mg Tab PO 1,300 mg TID AZIZA Administration Sodium Chloride 10 ml 04/20/21 22:00 05/03/21 09:22 Sodium Chloride 0.9% 10 Ml Flush Syringe IV 10 ml BID AZIZA Administration Sodium Chloride 10 ml 04/20/21 21:31 Sodium Chloride 0.9% 10 Ml Flush Syringe IV PRN PRN LINE FLUSH Nutrition/Malnutrition Assess - Dietary Evaluation Nutrition/Malnutrition Findings: Nutrition Notes Start: 04/21/21 12:15 Freq: Status: Active Protocol: Document 04/29/21 14:05 TAMMY (Rec: 04/29/21 14:17 TAMMY [id number]) Nutrition Notes Initial or Follow up Reassessment Current Diagnosis Acute Kidney Injury, Respiratory Failure, Hyperlipidemia Other Pertinent Diagnosis Acute metabolic encephalopathy , Dehydration, Hyperosmolar non-ketotic state Current Diet TF-Nepro 27 ml/hr Labs/Tests BUN 63 Cr 3.4 BG 249 Elevated LFTs Pertinent Medications Levophed gtt, Senokot Height 5 ft 2 in Weight 72.4 kg [place] Body Weight (kg) 50.00 BMI 29.2 Weight Status Overweight Subjective/Other Information Pt received first HD on 04/27 and second HD yesterday. No HD needed today, per nephrology. HD needs to be assessed daily. Observed Nepro infusing at 45ml/hr at time of visit (12:29). RN informed of correct TF rate. Pt remains on vent support. Percent of energy/protein needs met: 140% energy 100% pro Burn Absent Trauma Absent #1 Nutrition Diagnosis Inadequate oral intake Diagnosis Progress(for reassessment Continues documentation) Is patient on ventilator? Yes Is Patient Ambulatory and/or Out of Bed No REE-([place] Jeor-confined to bed) [phone] Calculation Used for Recommendations [place] Je[place] Additional Notes Pro needs >1.2g/kg: >87g/day Fluid needs 1-1.5L/day Nutrition Intervention Nutrition Support: Decrease current TF rate to 32ml/hr and provide 140ml water flush q4h. Kcal 1,382 Protein (gm) 62 Carbohydrates (gm) 124 Fat (gm) 74 Fluid (mL) 558 Fiber (gm) 10 Goal #1 TF tolerance Goal #2 TF to meet at least 75% energy and pro needs Follow-Up By: 05/04/21 Additional Comments F/U: stable TF, vent status, renal function <TACHO RUBALCAVA - Last Filed: 05/14/21 13:32> Assessment and Plan Assessment and plan: I saw and evaluated the patient. Discussed with the nurse practitioner and agree with their findings and plan as documented in this note. Hospitalist Physical - Constitutional Vitals: Temp Pulse Resp BP Pulse Ox 99.9 F H 102 H 23 108/55 100 05/14/21 11:22 05/14/21 12:31 05/14/21 12:31 05/14/21 12:31 05/14/21 12:31 HEART Score - HEART Score Troponin: Troponin T 0.021 ng/mL (0.00-0.029) 12/29/21 17:10 Results - Labs CBC & Chem 7: 05/14/21 04:43 05/14/21 04:43 Labs: Laboratory Last Values WBC 10.1 K/mm3 (4.5-11.0) 05/14/21 04:43 RBC 3.02 M/mm3 (3.65-5.03) L 05/14/21 04:43 Hgb 8.3 gm/dl (10.1-14.3) L 05/14/21 04:43 Hct 25.6 % (30.3-42.9) L 05/14/21 04:43 MCV 85 fl (79-97) 05/14/21 04:43 MCH 28 pg (28-32) 05/14/21 04:43 MCHC 33 % (30-34) 05/14/21 04:43 RDW 15.5 % (13.2-15.2) H 05/14/21 04:43 Plt Count 482 K/mm3 (140-440) H 05/14/21 04:43 Add Manual Diff Complete 04/28/21 04:00 Total Counted 100 04/28/21 04:00 Seg Neutrophils % Diver'S Tender 04/28/21 04:00 Seg Neuts % (Manual) 77.0 % (40.0-70.0) H 04/26/21 09:33 Band Neutrophils % 2.0 % 04/28/21 04:00 Lymphocytes % (Manual) 1.0 % (13.4-35.0) L 04/28/21 04:00 Reactive Lymphs % (Man) 0 % 04/28/21 04:00 Monocytes % (Manual) 1.0 % (0.0-7.3) 04/28/21 04:00 Eosinophils % (Manual) 3.0 % (0.0-4.3) 04/28/21 04:00 Metamyelocytes % 1.0 % 04/28/21 04:00 Myelocytes % 0 % 04/28/21 04:00 Promyelocytes % 0 % 04/28/21 04:00 Blast Cells % 0 % 04/28/21 04:00 Nucleated RBC % 4.0 % (0.0-0.9) H 04/28/21 04:00 Seg Neutrophils # Man 11.6 K/mm3 (1.8-7.7) H 04/28/21 04:00 Band Neutrophils # 0.3 K/mm3 04/28/21 04:00 Lymphocytes # (Manual) 0.1 K/mm3 (1.2-5.4) L 04/28/21 04:00 Abs React Lymphs (Man) 0.0 K/mm3 04/28/21 04:00 Monocytes # (Manual) 0.1 K/mm3 (0.0-0.8) 04/28/21 04:00 Eosinophils # (Manual) 0.4 K/mm3 (0.0-0.4) 04/28/21 04:00 Basophils # (Manual) 0.0 K/mm3 (0.0-0.1) 04/28/21 04:00 Metamyelocytes # 0.1 K/mm3 04/28/21 04:00 Myelocytes # 0.0 K/mm3 04/28/21 04:00 Promyelocytes # 0.0 K/mm3 04/28/21 04:00 Blast Cells # 0.0 K/mm3 04/28/21 04:00 WBC Morphology Not Reportable 04/28/21 04:00 Hypersegmented Neuts Not Reportable 04/28/21 04:00 Hyposegmented Neuts Not Reportable 04/28/21 04:00 Hypogranular Neuts Not Reportable 04/28/21 04:00 Smudge Cells Not Reportable 04/28/21 04:00 Toxic Granulation Not Reportable 04/28/21 04:00 Toxic Vacuolation Not Reportable 04/28/21 04:00 Dohle Bodies Not Reportable 04/28/21 04:00 Pelger-Huet Anomaly Not Reportable 04/28/21 04:00 Moni Rods Not Reportable 04/28/21 04:00 Platelet Estimate Consistent w auto 04/28/21 04:00 Clumped Platelets Not Reportable 04/28/21 04:00 Plt Clumps, EDTA Not Reportable 04/28/21 04:00 Large Platelets Few 04/28/21 04:00 Giant Platelets Not Reportable 04/28/21 04:00 Platelet Satelliting Not Reportable 04/28/21 04:00 Plt Morphology Comment Not Reportable 04/28/21 04:00 RBC Morphology Not Reportable 04/28/21 04:00 Dimorphic RBCs Not Reportable 04/28/21 04:00 Polychromasia Not Reportable 04/28/21 04:00 Hypochromasia Not Reportable 04/28/21 04:00 Poikilocytosis Not Reportable 04/28/21 04:00 Anisocytosis Not Reportable 04/28/21 04:00 Microcytosis Not Reportable 04/28/21 04:00 Macrocytosis Not Reportable 04/28/21 04:00 Spherocytes Not Reportable 04/28/21 04:00 Pappenheimer Bodies Not Reportable 04/28/21 04:00 Sickle Cells Not Reportable 04/28/21 04:00 Target Cells 1+ 04/28/21 04:00 Tear Drop Cells Not Reportable 04/28/21 04:00 Ovalocytes Not Reportable 04/28/21 04:00 Helmet Cells Not Reportable 04/28/21 04:00 Parkinson-Numidia Bodies Not Reportable 04/28/21 04:00 [place] Rings Not Reportable 04/28/21 04:00 [place] Cells Not Reportable 04/28/21 04:00 Bite Cells Not Reportable 04/28/21 04:00 Crenated Cell Not Reportable 04/28/21 04:00 Elliptocytes Not Reportable 04/28/21 04:00 Acanthocytes (Spur) Not Reportable 04/28/21 04:00 Rouleaux Not Reportable 04/28/21 04:00 Hemoglobin C Crystals Not Reportable 04/28/21 04:00 Schistocytes Not Reportable 04/28/21 04:00 Malaria parasites Not Reportable 04/28/21 04:00 Herrera Bodies Not Reportable 04/28/21 04:00 Hem Pathologist Commnt No 04/28/21 04:00 PT 14.7 Sec. (12.2-14.9) 05/13/21 04:24 INR 1.04 (0.87-1.13) 05/13/21 04:24 APTT 36.6 Sec. (24.2-36.6) 04/28/21 05:00 Heparin Anti-Xa, Unfract Negative (Negative) 04/24/21 17:29 ABG pH 7.487 (7.320-7.450) H 05/02/21 04:34 POC ABG pCO2 35.3 mmHg (32.0-48.0) 05/02/21 04:34 ABG pCO2 31.6 mm Hg 04/21/21 15:47 POC ABG pO2 78.6 mmHg (83-108) L 05/02/21 04:34 ABG pO2 168.1 mm Hg (80.0-90.0) H 04/21/21 15:47 POC ABG HCO3 26.1 05/02/21 04:34 ABG HCO3 23.3 mmol/L (20.0-26.0) 04/21/21 15:47 ABG O2 Saturation 96.0 (0-100) 05/02/21 04:34 ABG O2 Content 12.7 (0.0-44) 04/21/21 15:47 POC ABG Base Excess 2.9 05/02/21 04:34 ABG Base Excess 0.3 mmol/L (-2.0-3.0) 04/21/21 15:47 ABG Hemoglobin 11.5 (12.0-17.5) L 05/02/21 04:34 ABG Oxyhemoglobin 95.1 (94-98) 05/02/21 04:34 ABG Carboxyhemoglobin 1.0 % (0.0-5.0) 04/21/21 15:47 ABG Methemoglobin 0.3 (0.0-1.5) 05/02/21 04:34 ABG Sodium 138.6 mmol/L (136.0-145.0) 05/02/21 04:34 ABG Potassium 3.4 mmol/L (3.40-4.50) 05/02/21 04:34 ABG Chloride 105.0 mmol/L (98-107) 05/02/21 04:34 ABG Glucose 122 mg/dL (65-95) H 05/02/21 04:34 VBG pH 7.397 (7.320-7.420) 04/20/21 17:10 Oxyhemoglobin 97.5 % (95.0-99.0) 04/21/21 15:47 Carboxyhemoglobin 0.6 (0.5-1.5) 05/02/21 04:34 FiO2 100 % 04/21/21 15:47 FiO2 % 40.0 05/02/21 04:34 Sodium 138 mmol/L (137-145) 05/14/21 04:43 Potassium 4.0 mmol/L (3.6-5.0) 05/14/21 04:43 Chloride 104.1 mmol/L (98-107) 05/14/21 04:43 Carbon Dioxide 23 mmol/L (22-30) 05/14/21 04:43 Anion Gap 15 mmol/L 05/14/21 04:43 BUN 29 mg/dL (7-17) H 05/14/21 04:43 Creatinine 1.2 mg/dL (0.6-1.2) 05/14/21 04:43 Estimated GFR 52 ml/min 05/14/21 04:43 BUN/Creatinine Ratio 24 % 05/14/21 04:43 Glucose 192 mg/dL (65-100) H 05/14/21 04:43 POC Glucose 215 mg/dL (70-105) H 05/14/21 10:59 Hemoglobin A1c 17.1 % (4-6) H 04/22/21 15:55 Lactic Acid 1.90 mmol/L (0.7-2.0) 04/20/21 19:56 Calcium 8.1 mg/dL (8.4-10.2) L 05/14/21 04:43 Phosphorus 3.20 mg/dL (2.5-4.5) 05/14/21 04:43 Magnesium 2.20 mg/dL (1.7-2.3) 05/14/21 04:43 Iron 62 ug/dL (37-170) 04/24/21 17:29 TIBC 285 mcg/dL (250-450) 04/24/21 17:29 % Saturation 21.75 % 04/24/21 17:29 Transferrin 112 mg/dl (192-382) L 04/24/21 17:29 Total Bilirubin 0.20 mg/dL (0.1-1.2) 05/03/21 04:00 Direct Bilirubin < 0.2 mg/dL (0-0.2) 04/29/21 04:00 Indirect Bilirubin 0.1 mg/dL 04/29/21 04:00 AST 53 units/L (5-40) H 05/03/21 04:00 ALT 55 units/L (7-56) 05/03/21 04:00 Alkaline Phosphatase 149 units/L (35-129) H 05/03/21 04:00 Ammonia 29.0 umol/L (25-60) 04/20/21 17:10 Total Creatine Kinase 1000 units/L (30-135) H 04/27/21 07:43 CK-MB (CK-2) 36.0 ng/mL (0.0-4.0) H 04/20/21 17:10 CK-MB (CK-2) Rel Index 0.9 (0-4) 04/20/21 17:10 Troponin T 0.021 ng/mL (0.00-0.029) 04/20/21 17:10 Serum Total Protein 5.5 g/dL (6.1-8.1) L 04/22/21 08:59 Total Protein 5.2 g/dL (6.3-8.2) L 05/03/21 04:00 Albumin 1.5 g/dL (3.9-5) L 05/03/21 04:00 Albumin/Globulin Ratio 0.4 % 05/03/21 04:00 [id number]-8-[id number] 0.6 g/dL (0.2-0.3) H 04/22/21 08:59 [id number]-5-[id number] 1.0 g/dL (0.5-0.9) H 04/22/21 08:59 Beta Globulins 0.3 g/dL (0.2-0.5) 04/22/21 08:59 Gamma Globulins 0.6 g/dL (0.8-1.7) L 04/22/21 08:59 Abnorm Protein Band 1 see below 04/22/21 08:59 PEP Interpretation see below H 04/22/21 08:59 Triglycerides 80 mg/dL (2-149) 05/04/21 04:48 Cholesterol 90 mg/dL (50-199) 05/04/21 04:48 LDL Cholesterol Direct 51 mg/dL (50-130) 05/04/21 04:48 HDL Cholesterol 24 mg/dL (40-59) L 05/04/21 04:48 Cholesterol/HDL Ratio 3.75 % 05/04/21 04:48 Serotonin Release Assay See scanned result 04/24/21 17:29 TSH 6.040 mlU/mL (0.270-4.200) H 04/20/21 17:10 Free T4 0.93 ng/dL (0.76-1.46) 04/20/21 17:10 Arterial Blood Glucose 122 mg/dL (65-95) H 05/02/21 04:34 Arterial Blood Ionized Calcium 4.5 mg/dL (4.6-5.3) L 04/28/21 05:18 Urine Color Yellow (Yellow) 04/29/21 13:30 Urine Turbidity Turbid (Clear) 04/29/21 13:30 Urine pH 5.0 (5.0-7.0) 04/29/21 13:30 Ur Specific [place] 1.010 (1.003-1.030) 04/29/21 13:30 Urine Protein 100 mg/dl mg/dL (Negative) 04/29/21 13:30 Urine Glucose (UA) 150 mg/dL (Negative) 04/29/21 13:30 Urine Ketones Neg mg/dL (Negative) 04/29/21 13:30 Urine Blood Lg (Negative) 04/29/21 13:30 Urine Nitrite Neg (Negative) 04/29/21 13:30 Urine Bilirubin Neg (Negative) 04/29/21 13:30 Urine Urobilinogen < 2.0 mg/dL (<2.0) 04/29/21 13:30 Ur Leukocyte Esterase Lg (Negative) 04/29/21 13:30 Urine WBC (Auto) > 182.0 /HPF (0.0-6.0) H 04/29/21 13:30 Urine RBC (Auto) > 182.0 /HPF (0.0-6.0) 04/29/21 13:30 U Epithel Cells (Auto) 4.0 /HPF (0-13.0) 04/29/21 13:30 Urine WBC Clumps 3+ /HPF 04/29/21 13:30 Urine Mucus Few /HPF 04/29/21 13:30 Urine Yeast (Budding) 3+ /HPF 04/29/21 13:30 Urine Osmolality 446 Mosm/kg 04/21/21 08:01 Urine Total Volume 1700 ml 05/08/21 09:34 Urine Creatinine 56.0 mg/dL (0.1-20.0) H 05/08/21 09:34 Ur Creatinine 24 Hour 1.0 (0.8-2.8) 05/08/21 09:34 Urine Sodium 71 mmol/L 04/21/21 08:01 Urine Total Protein 12 mg/dL (5-11.8) H 04/21/21 08:01 CSF Appearance Clear 04/29/21 11:45 CSF Color Colorless 04/29/21 11:45 CSF WBC 14 /mm3 (1-10) 04/29/21 11:45 CSF RBC 324 /mm3 (0-0) 04/29/21 11:45 CSF Seg Neutrophils 50.0 % (0-6) 04/29/21 11:45 CSF Lymphocytes % 40.0 % (40-80) 04/29/21 11:45 CSF Reactive Lymphs Not Reportable 04/29/21 11:45 CSF Monocytes % 10.0 % (15-45) 04/29/21 11:45 CSF Eosinophils % Not Reportable 04/29/21 11:45 CSF Basophils Not Reportable 04/29/21 11:45 CSF Pathologist Review C 04/29/21 11:45 CSF Glucose 161 mg/dL 04/29/21 11:45 CSF Total Protein 51 mg/dL 04/29/21 11:45 Plasma/Serum Alcohol < 0.01 % (0-0.07) 04/20/21 17:10 Heparin-induced Plt Ab Negative (Negative) 04/24/21 17:29 UF Heparin High Dose 1 % Release 04/24/21 17:29 EFE UFH Low Dose 0.1 0 % Release 04/24/21 17:29 EFE UFH Low Dose 0.5 0 % Release 04/24/21 17:29 Coronavirus (PCR) Negative (Negative) 04/21/21 Unknown Hepatitis A IgM Ab Non-reactive (NonReactive) 04/27/21 12:49 Hep Bs Antigen Nonreactive (Negative) 04/27/21 12:49 Hep B Core IgM Ab Non-reactive (NonReactive) 04/27/21 12:49 Hepatitis C Antibody Non-reactive (NonReactive) 04/27/21 12:49 Blood Type O POSITIVE 05/02/21 12:00 Antibody Screen Negative 05/02/21 12:00 Crossmatch See Detail 05/02/21 12:00 Microbiology: Microbiology 05/02/21 Unknown Urine,Catheterized - Indwelling Catheter Urine Culture - Final Roselyn Tropicalis Luther/IV: Voiding Method Indwelling Catheter Active Medications - Current Medications Current Medications: Generic Name Dose Route Start Last Admin Trade Name Freq PRN Reason Stop Dose Admin Acetaminophen 650 mg 04/20/21 21:31 05/14/21 09:50 Acetaminophen 325 Mg Tab PO 650 mg Q4H PRN Administration Pain MILD(1-3)/Fever >100.5/TURCIOS Albumin Human 25 gm 05/06/21 16:06 05/06/21 16:21 Albumin Human 25% (25 Gm/100 Ml) Inj IV 25 gm MITCH PRN Administration Hypotension Albuterol 2.5 mg 04/22/21 14:49 04/23/21 15:18 Albuterol 2.5 Mg/3 Ml Nebu IH 2.5 mg Q4HRT PRN Administration Shortness Of Breath Amlodipine Besylate 5 mg 05/12/21 10:00 05/14/21 09:49 Amlodipine 5 Mg Tab PO 5 mg QDAY AZIZA Administration Lipase/Protease/Amylase 1 each 04/25/21 14:13 Lipase 10,500/Protease 25,000/Amylase 43,750 (Units) Dr Pedro FEEDTUBE PRN PRN For Clogged Feeding Tube Aspirin 81 mg 05/04/21 10:00 05/14/21 09:50 Aspirin 81 Mg Tab Chew FEEDTUBE 81 mg QDAY AZIZA Administration Atorvastatin Calcium 40 mg 05/04/21 22:00 05/13/21 21:39 Atorvastatin 40 Mg Tab FEEDTUBE 40 mg QHS AZIZA Administration Dextrose 50 ml 04/24/21 11:36 Dextrose 50% In Water (25gm) 50 Ml Syringe IV Q30MIN PRN Hypoglycemia Protocol Famotidine 10 mg 04/27/21 10:00 05/14/21 09:50 Famotidine 10 Mg Tab FEEDTUBE 10 mg BID AZIZA Administration Heparin Sodium (Porcine) 5,000 unit 05/10/21 22:00 05/14/21 09:50 Heparin 5,000 Unit/1 Ml Vial SUB-Q 5,000 unit Q12HR AZIZA Administration Hydrophilic Ointment 1 applic 04/26/21 11:16 Lip Therapy Vaseline TP Q2HR PRN Dry Lips Sodium Chloride 1,000 mls @ 100 mls/hr 05/14/21 08:30 05/14/21 09:53 Nacl 0.9% 1000 Ml IV 05/14/21 18:29 100 mls/hr DIRECT AZIZA Administration Insulin Human Lispro 0 unit 04/25/21 18:00 05/14/21 12:05 Insulin Lispro 100 Unit/Ml SUB-Q 4 unit Q6HR AZIZA Administration Protocol Labetalol HCl 20 mg 05/12/21 11:34 05/12/21 21:35 Labetalol 20 Mg/4 Ml Inj IV 20 mg Q4H PRN Administration SBP >/=170 Levothyroxine Sodium 50 mcg 05/03/21 06:00 05/14/21 05:27 Levothyroxine 50 Mcg Tab PO 50 mcg DAILY@0600 AZIZA Administration Lorazepam 1 mg 04/26/21 11:15 05/12/21 16:27 Lorazepam 2 Mg/Ml Vial IV 1 mg Q4H PRN Administration Sedation Metoclopramide HCl 5 mg 04/20/21 21:31 Metoclopramide 10 Mg/2 Ml Inj IV Q6H PRN Nausea And Vomiting Multi-Ingred Cream/Lotion/Oil/Oint 1 applic 04/26/21 11:16 Mineral Oil/Petrolatum, White Ophth Oint 3.5 Gm OU Q4HR PRN Dry Eye(s) Ondansetron HCl 4 mg 04/20/21 21:31 Ondansetron 4 Mg/2 Ml Inj IV Q8H PRN Nausea And Vomiting Senna/Docusate Sodium 1 tab 04/26/21 22:00 05/14/21 09:50 Sennosides/Docusate Sodium 8.6/50 Mg Tab FEEDTUBE 1 tab BID AZIZA Administration Simple Syrup 15 ml 04/25/21 14:13 Simple Syrup 15 Ml FEEDTUBE PRN PRN Hypoglycemia Simple Syrup 30 ml 04/25/21 14:13 Simple Syrup 15 Ml FEEDTUBE PRN PRN Hypoglycemia Sodium Bicarbonate 325 mg 04/25/21 14:13 04/27/21 13:00 Sodium Bicarbonate 325 Mg Tab FEEDTUBE 325 mg PRN PRN Administration For Clogged Feeding Tube Sodium Bicarbonate 1,300 mg 04/27/21 14:00 05/14/21 13:07 Sodium Bicarbonate 650 Mg Tab PO 1,300 mg TID AZIZA Administration Sodium Chloride 10 ml 04/20/21 22:00 05/14/21 09:51 Sodium Chloride 0.9% 10 Ml Flush Syringe IV 10 ml BID AZIZA Administration Sodium Chloride 10 ml 04/20/21 21:31 Sodium Chloride 0.9% 10 Ml Flush Syringe IV PRN PRN LINE FLUSH Nutrition/Malnutrition Assess - Dietary Evaluation Nutrition/Malnutrition Findings: Nutrition Notes Start: 04/21/21 12:15 Freq: Status: Active Protocol: Document 05/13/21 15:36 TAMMY (Rec: 05/13/21 15:47 [email or web address] [id number]) Nutrition Notes Initial or Follow up Reassessment Current Diagnosis Sepsis,Respiratory Failure, Stroke Other Pertinent Diagnosis Acute metabolic encephalopathy , pneu, UTI Current Diet NPO Labs/Tests BUN 30 Mg 1.6 Pertinent Medications Mag sulfate x 1 dose Height 5 ft 2 in Weight 72.4 kg [place] Body Weight (kg) 50.00 BMI 29.2 Weight Status Overweight Subjective/Other Information Pt remains on vent support. TF off; pt scheduled for trach and PEG placement today. Unable to place PEG sec to suspected anatomical abnormality. Interventional radiology consulted for PEG placement. Per nephrology, SYED resolving; no indication for HD as VasCath has been removed. Minimum of two criteria No #1 Nutrition Diagnosis Inadequate oral intake Diagnosis Progress(for reassessment Continues documentation) Is patient on ventilator? Yes Is Patient Ambulatory and/or Out of Bed No REE-([place]. Jeor-confined to bed) [phone] Calculation Used for Recommendations [place] Jeor Additional Notes Pro needs 1.2-2g/k-145g/ day Fluid needs 1ml/kcal Nutrition Intervention Nutrition Support: When feasible, resume TF, but change formula to Glucerna 1.2 at 50ml/hr with 80ml water flush q4h. Goal #1 Resume TF to meet nutrient needs Follow-Up By: 05/16/21 Additional Comments F/U: PEG placement, TF restart with Glucerna 1.2, vent status
[2021-05-04] MEDS: INSULIN LISPRO 100 UNIT/ML SUB-Q SCH ×4 (01:46→18:44)
[2021-05-04] MEDS: NORepinephrine/NS 8 MG-250 ML 8 MG/250 ML INFUS..BTL IV SCH (03:35)
[2021-05-04] MEDS: LEVOTHYROXINE 50 MCG TAB PO SCH (05:22)
[2021-05-04 05:41] LABS: Hematocrit 26.3 % (30.3-42.9); Hemoglobin 8.5 gm/dl (10.1-14.3); Mean Corpuscular HGB Conc 32 % (30-34); Mean Corpuscular Volume 84 fl (79-97); Platelet Count 236 K/mm3 (140-440); Red Blood Count 3.14 M/mm3 (3.65-5.03); Red Cell Distribution Width 15.8 % (13.2-15.2)
[2021-05-04 05:45] LABS: Calcium 9.3 mg/dL (8.4-10.2); Chol/HDL Ratio 3.75 %
[2021-05-04] MEDS ORDERED: BENZOCAINE 20% TOP SPRAY 0.5 ML UNIT DOSE MM ONE (08:08)
[2021-05-04] MEDS: SODIUM BICARBONATE 650 MG TAB PO SCH ×3 (08:42→21:33)
--- NOTE | 2021-05-04 10:42 | Progress Note ---
Assessment and Plan (1) Acute metabolic encephalopathy (2) Diabetic hyperosmolar non-ketotic state 3) SYED (acute kidney injury) (4) Dehydration (5) Hypernatremia (6) Rhabdomyolysis (7) Hypernatremia 8) GERD (gastroesophageal reflux disease) (9) Metabolic acidosis (10) Leukocytosis On IHD after consent obtained from nephew. Has vascath. CXR congested. HD today with target UF 3L. may need HD again tomorrow mainly for volume removal. On Levophed. Will titrate to keep MAP >65 during HD UA bland Intubated on Vent. Monitor Ck renally dose meds Strict I&O In ICU Critical Care time: 35 minutes Subjective Date of service: 05/04/21 Principal diagnosis: Acute respiratory failure Interval history: Intubated on Vent. On IHD. On Levophed. HD today. Objective - Exam Narrative Exam: General appearance: Intubated EENT: mucous membranes dry Neck: Present: neck supple Respiratory: Decreased Breath Sounds Heart: tachycardia Gastrointestinal: Present: normoactive bowel sounds. Absent: tenderness, distended, masses Integumentary: no rash, warm and dry Neurologic: Sedated Musculoskeletal: Present: other (no edema in BLE) - Vital Signs Vital signs: Vital Signs - 12hr 05/03/21 05/03/21 05/03/21 22:45 23:00 23:15 Temperature Pulse Rate 94 H 91 H 96 H Pulse Rate [ From Monitor] Respiratory 25 H 18 27 H Rate Blood Pressure 105/52 99/48 119/56 O2 Sat by Pulse 97 97 99 Oximetry 05/03/21 05/03/21 05/04/21 23:30 23:45 00:00 Temperature 99.4 F Pulse Rate 88 93 H 90 Pulse Rate [ 94 H From Monitor] Respiratory 16 28 H 16 Rate Blood Pressure 91/50 97/52 104/56 O2 Sat by Pulse 97 98 99 Oximetry 05/04/21 05/04/21 05/04/21 00:15 00:16 00:30 Temperature Pulse Rate 97 H 89 88 Pulse Rate [ From Monitor] Respiratory 24 15 Rate Blood Pressure 120/57 119/56 88/47 O2 Sat by Pulse 100 97 98 Oximetry 05/04/21 05/04/21 05/04/21 00:45 01:00 01:15 Temperature Pulse Rate 89 86 94 H Pulse Rate [ From Monitor] Respiratory 14 15 24 Rate Blood Pressure 105/51 93/44 112/55 O2 Sat by Pulse 98 98 99 Oximetry 05/04/21 05/04/21 05/04/21 01:30 01:45 02:00 Temperature Pulse Rate 95 H 90 85 Pulse Rate [ From Monitor] Respiratory 22 20 14 Rate Blood Pressure 96/57 103/56 96/44 O2 Sat by Pulse 98 98 97 Oximetry 05/04/21 05/04/21 05/04/21 02:15 02:30 02:45 Temperature Pulse Rate 85 84 86 Pulse Rate [ From Monitor] Respiratory 14 14 14 Rate Blood Pressure 98/43 93/44 103/52 O2 Sat by Pulse 97 97 97 Oximetry 05/04/21 05/04/21 05/04/21 03:00 03:15 03:30 Temperature Pulse Rate 84 85 84 Pulse Rate [ From Monitor] Respiratory 15 14 15 Rate Blood Pressure 95/42 114/47 89/42 O2 Sat by Pulse 97 98 98 Oximetry 05/04/21 05/04/21 05/04/21 03:45 04:00 04:01 Temperature 99.0 F Pulse Rate 81 78 76 Pulse Rate [ 78 From Monitor] Respiratory 14 18 14 Rate Blood Pressure 97/46 139/60 O2 Sat by Pulse 99 98 100 Oximetry 05/04/21 05/04/21 05/04/21 04:15 04:18 04:30 Temperature Pulse Rate 77 76 79 Pulse Rate [ From Monitor] Respiratory 14 14 Rate Blood Pressure 109/48 109/48 113/54 O2 Sat by Pulse 98 98 99 Oximetry 05/04/21 05/04/21 05/04/21 04:45 05:00 05:15 Temperature Pulse Rate 77 80 85 Pulse Rate [ From Monitor] Respiratory 15 14 17 Rate Blood Pressure 110/47 118/50 126/69 O2 Sat by Pulse 98 98 99 Oximetry 05/04/21 05/04/21 05/04/21 05:30 05:45 06:00 Temperature Pulse Rate 83 80 91 H Pulse Rate [ From Monitor] Respiratory 17 14 23 Rate Blood Pressure 136/64 145/57 124/61 O2 Sat by Pulse 98 99 98 Oximetry 05/04/21 05/04/21 05/04/21 06:15 06:30 06:45 Temperature Pulse Rate 82 81 79 Pulse Rate [ From Monitor] Respiratory 15 15 15 Rate Blood Pressure 124/61 91/40 101/38 O2 Sat by Pulse 98 99 99 Oximetry 05/04/21 05/04/21 05/04/21 07:00 07:15 07:30 Temperature Pulse Rate 73 74 74 Pulse Rate [ From Monitor] Respiratory 14 16 16 Rate Blood Pressure 121/54 113/51 112/48 O2 Sat by Pulse 99 100 100 Oximetry 05/04/21 05/04/21 05/04/21 07:45 07:46 08:00 Temperature 98.2 F Pulse Rate 71 69 Pulse Rate [ From Monitor] Respiratory 14 14 Rate Blood Pressure 115/52 108/46 O2 Sat by Pulse 100 100 Oximetry 05/04/21 05/04/21 05/04/21 08:15 08:31 08:36 Temperature Pulse Rate 71 77 78 Pulse Rate [ From Monitor] Respiratory 14 16 Rate Blood Pressure 117/46 135/67 135/67 O2 Sat by Pulse 100 100 100 Oximetry - Lab 05/04/21 04:48 05/04/21 04:48 Most recent lab results ABG pH 7.487 (7.320-7.450) H 05/02/21 04:34 ABG pCO2 31.6 mm Hg 04/21/21 15:47 ABG pO2 168.1 mm Hg (80.0-90.0) H 04/21/21 15:47 ABG HCO3 23.3 mmol/L (20.0-26.0) 04/21/21 15:47 ABG O2 Saturation 96.0 (0-100) 05/02/21 04:34 Calcium 9.3 mg/dL (8.4-10.2) 05/04/21 04:48 Phosphorus 5.30 mg/dL (2.5-4.5) H 05/04/21 04:48 Magnesium 1.90 mg/dL (1.7-2.3) 05/04/21 04:48 Urine Creatinine 44.3 mg/dL (0.1-20.0) H 04/21/21 08:01 Urine Sodium 71 mmol/L 04/21/21 08:01 Urine Total Protein 12 mg/dL (5-11.8) H 04/21/21 08:01 Medications & Allergies - Medications Allergies/Adverse Reactions: Allergies No Known Allergies Allergy (Unverified 04/20/21 14:35) Active Medications: Generic Name Dose Route Start Last Admin Trade Name Freq PRN Reason Stop Dose Admin Acetaminophen 650 mg 04/20/21 21:31 05/01/21 18:15 Acetaminophen 325 Mg Tab PO 650 mg Q4H PRN Administration Pain MILD(1-3)/Fever >100.5/TURCIOS Albuterol 2.5 mg 04/22/21 14:49 04/23/21 15:18 Albuterol 2.5 Mg/3 Ml Nebu IH 2.5 mg Q4HRT PRN Administration Shortness Of Breath Lipase/Protease/Amylase 1 each 04/25/21 14:13 Lipase 10,500/Protease 25,000/Amylase 43,750 (Units) Dr Vasquez FEEDTUBE PRN PRN For Clogged Feeding Tube Aspirin 81 mg 05/04/21 10:00 Aspirin 81 Mg Tab Chew FEEDTUBE QDAY AZIZA Atorvastatin Calcium 40 mg 05/04/21 22:00 Atorvastatin 40 Mg Tab FEEDTUBE QHS AZIZA Dextrose 50 ml 04/24/21 11:36 Dextrose 50% In Water (25gm) 50 Ml Syringe IV Q30MIN PRN Hypoglycemia Protocol Famotidine 10 mg 04/27/21 10:00 05/03/21 21:02 Famotidine 10 Mg Tab FEEDTUBE 10 mg BID AZIZA Administration Hydralazine HCl 10 mg 04/24/21 21:22 Hydralazine 20 Mg/1 Ml Inj IV Q4HR PRN elevated BP Hydrophilic Ointment 1 applic 04/26/21 11:16 Lip Therapy Vaseline TP Q2HR PRN Dry Lips NORepinephrine/NS 8 MG-250 ML 8 mg in 250 mls @ 3.75 mls/hr 04/26/21 16:00 05/04/21 06:50 Norepinephrine/Ns 8 Mg-250 Ml (Double Conc) IV 2 mcg/min TITRATE AZIZA 3.75 mls/hr Titration Protocol 2 MCG/MIN Sodium Chloride 100 mls @ 999 mls/hr 05/01/21 12:44 Nacl 0.9% IV MITCH PRN Hypotension MEROPENEM/NS 1 GRAM/100 ML 1 gram in 100 mls @ 100 mls/hr 05/03/21 15:00 05/03/21 14:04 Merrem/Ns 1 Gram/100 Ml IV 100 mls/hr 1500 AZIZA Administration Protocol Insulin Human Lispro 0 unit 04/25/21 18:00 05/04/21 05:22 Insulin Lispro 100 Unit/Ml SUB-Q Not Given Q6HR [facility] Protocol Levothyroxine Sodium 50 mcg 05/03/21 06:00 05/04/21 05:22 Levothyroxine 50 Mcg Tab PO 50 mcg DAILY@0600 AZIZA Administration Lorazepam 1 mg 04/26/21 11:15 04/30/21 23:00 Lorazepam 2 Mg/Ml Vial IV 1 mg Q4H PRN Administration Sedation Metoclopramide HCl 5 mg 04/20/21 21:31 Metoclopramide 10 Mg/2 Ml Inj IV Q6H PRN Nausea And Vomiting Midodrine 5 mg 05/03/21 11:00 05/03/21 21:01 Midodrine 5 Mg Tab PO 5 mg TID AZIZA Administration Multi-Ingred Cream/Lotion/Oil/Oint 1 applic 04/26/21 11:16 Mineral Oil/Petrolatum, White Ophth Oint 3.5 Gm OU Q4HR PRN Dry Eye(s) Ondansetron HCl 4 mg 04/20/21 21:31 Ondansetron 4 Mg/2 Ml Inj IV Q8H PRN Nausea And Vomiting Senna/Docusate Sodium 1 tab 04/26/21 22:00 05/03/21 21:02 Sennosides/Docusate Sodium 8.6/50 Mg Tab FEEDTUBE Not Given BID AZIZA Simple Syrup 15 ml 04/25/21 14:13 Simple Syrup 15 Ml FEEDTUBE PRN PRN Hypoglycemia Simple Syrup 30 ml 04/25/21 14:13 Simple Syrup 15 Ml FEEDTUBE PRN PRN Hypoglycemia Sodium Bicarbonate 325 mg 04/25/21 14:13 04/27/21 13:00 Sodium Bicarbonate 325 Mg Tab FEEDTUBE 325 mg PRN PRN Administration For Clogged Feeding Tube Sodium Bicarbonate 1,300 mg 04/27/21 14:00 05/03/21 21:01 Sodium Bicarbonate 650 Mg Tab PO 1,300 mg TID AZIZA Administration Sodium Chloride 10 ml 04/20/21 22:00 05/03/21 21:02 Sodium Chloride 0.9% 10 Ml Flush Syringe IV 10 ml BID AZIZA Administration Sodium Chloride 10 ml 04/20/21 21:31 Sodium Chloride 0.9% 10 Ml Flush Syringe IV PRN PRN LINE FLUSH
[2021-05-04] MEDS: ASPIRIN 81 MG TAB CHEW FEEDTUBE SCH (10:43)
[2021-05-04] MEDS ORDERED: SODIUM CHLORIDE 0.9% 100 ML IV PRN ×2 (10:43→11:30)
[2021-05-04] MEDS: FAMOTIDINE 10 MG TAB FEEDTUBE SCH ×2 (10:43→21:33)
[2021-05-04] MEDS: SENNOSIDES/DOCUSATE SODIUM 8.6/50 MG TAB FEEDTUBE SCH ×2 (10:44→21:33)
--- NOTE | 2021-05-04 11:37 | Progress Note ---
Assessment and Plan Assessment and Plan Assessment and plan: This is a 80-year-old female alf resident with GERD, hypothyroidism, hyperlipidemia, schizophrenia and dementia admitted with hypothermia, hyponatrem ia, hypokalemia, lactic acidosis, acute kidney injury, rhabdomyolysis and hyperosmolar nonketotic state. 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 suggest MRA brain and neck -consider LINCOLN -review blood culture -maintain BP with MAP>65 -Hold off on restarting home antipsychotic medications when obtained -Risperidone 3 mg, Donepazil 5 mg -EEG is pending she is off sedation -Hold all sedations -start ASA 81 mg and lipitor 40 mg -LDL is pending -cardiac monitering -SQ heparine # Hypotension -Vasopressor support with Levophed -MAP goal above 65 -Blood pressure monitoring per protocol -Home amlodipine 10 mg on hold # Acute hypoxic respiratory failure -s/p Bipap and ventimask -s/p bronchoscopy on 04/26 -Intubated 04/26 with 7.5 oett at 22 lips -Repeat CXR shows increased interstitial prominence of densities in bilateral lungs # Hypoalbuminemia, transaminitis -Presented with transaminitis -Trend LFTs # Severe hypernatremia (resolved), hyperchloremia (resolved), acute kidney injury likely secondary to vasomotor nephropathy, urinary retention, rhabdo myolysis (resolved) -HD initiated 04/27 -Avoid nephrotoxic medications -Trend BMP, CK -Renally dose medications -renal US WNL per read # Sepsis likely 2/2 UTI and PNA -COVID-19 PCR negative -04/26/2021 sputum culture: Roselyn nonalbicans -04/29/2021 UA showed significant pyuria. -Lumbar puncture with CSF showing 14 WBC, 324 RBC, glucose 161, protein 51. -Abx per ID: IV meropenem, renally adjusted -Exchange Luther, urine culture ordered -Trend WBC and fever curve -f/u cultures s/p HHNK, h/o hypothyroidism -Restart home levothyroxine (50 mcg q day) -s/p Insulin drip x2 -SSI, long acting insulin (adjust as needed) -TSH 6.04, T4 0.93 -Avoid hypoglycemia # Leukocytosis, thrombocytopenia (resolved), anemia -HIT (-) -Trend CBC -Transfuse to hemoglobin less than 7 -hbg 6.9 -transfuse one unit PRBC -SCD to bilateral lower extremities while in bed -BUE dopplar US negative for DVT PLAN 1- Recommend MRA brain and neck can not do CTA due to renal impairment 2- Consider LINCOLN 3- cardiac monitering 4- ASA 81 mg and Lipitor 40 mg 5- review C/s blood and CSF ID is on the case 6- EEG when possible 7- Avoid sedation 8- avoid Hypotension will follow Subjective Date of service: 05/04/21 Principal diagnosis: Acute respiratory failure Interval history: she is slightly more interactive, move upper limbs to stimulation not follow command , slightly open eyes to calling her name , MRA pending as well as LINCOLN she is off sedation blcs negative Bun/Cr#58/3.4 EEG still pending wbs#14.3 Objective - Vital Sign Vital Signs - 12hr 05/03/21 05/04/21 05/04/21 23:45 00:00 00:15 Temperature 99.4 F Pulse Rate 93 H 90 97 H Pulse Rate [ 94 H From Monitor] Respiratory 28 H 16 24 Rate Blood Pressure 97/52 104/56 120/57 O2 Sat by Pulse 98 99 100 Oximetry 05/04/21 05/04/21 05/04/21 00:16 00:30 00:45 Temperature Pulse Rate 89 88 89 Pulse Rate [ From Monitor] Respiratory 15 14 Rate Blood Pressure 119/56 88/47 105/51 O2 Sat by Pulse 97 98 98 Oximetry 05/04/21 05/04/21 05/04/21 01:00 01:15 01:30 Temperature Pulse Rate 86 94 H 95 H Pulse Rate [ From Monitor] Respiratory 15 24 22 Rate Blood Pressure 93/44 112/55 96/57 O2 Sat by Pulse 98 99 98 Oximetry 05/04/21 05/04/21 05/04/21 01:45 02:00 02:15 Temperature Pulse Rate 90 85 85 Pulse Rate [ From Monitor] Respiratory 20 14 14 Rate Blood Pressure 103/56 96/44 98/43 O2 Sat by Pulse 98 97 97 Oximetry 05/04/21 05/04/21 05/04/21 02:30 02:45 03:00 Temperature Pulse Rate 84 86 84 Pulse Rate [ From Monitor] Respiratory 14 14 15 Rate Blood Pressure 93/44 103/52 95/42 O2 Sat by Pulse 97 97 97 Oximetry 05/04/21 05/04/21 05/04/21 03:15 03:30 03:45 Temperature Pulse Rate 85 84 81 Pulse Rate [ From Monitor] Respiratory 14 15 14 Rate Blood Pressure 114/47 89/42 97/46 O2 Sat by Pulse 98 98 99 Oximetry 05/04/21 05/04/21 05/04/21 04:00 04:01 04:15 Temperature 99.0 F Pulse Rate 78 76 77 Pulse Rate [ 78 From Monitor] Respiratory 18 14 14 Rate Blood Pressure 139/60 109/48 O2 Sat by Pulse 98 100 98 Oximetry 05/04/21 05/04/21 05/04/21 04:18 04:30 04:45 Temperature Pulse Rate 76 79 77 Pulse Rate [ From Monitor] Respiratory 14 15 Rate Blood Pressure 109/48 113/54 110/47 O2 Sat by Pulse 98 99 98 Oximetry 05/04/21 05/04/21 05/04/21 05:00 05:15 05:30 Temperature Pulse Rate 80 85 83 Pulse Rate [ From Monitor] Respiratory 14 17 17 Rate Blood Pressure 118/50 126/69 136/64 O2 Sat by Pulse 98 99 98 Oximetry 05/04/21 05/04/21 05/04/21 05:45 06:00 06:15 Temperature Pulse Rate 80 91 H 82 Pulse Rate [ From Monitor] Respiratory 14 23 15 Rate Blood Pressure 145/57 124/61 124/61 O2 Sat by Pulse 99 98 98 Oximetry 05/04/21 05/04/21 05/04/21 06:30 06:45 07:00 Temperature Pulse Rate 81 79 73 Pulse Rate [ From Monitor] Respiratory 15 15 14 Rate Blood Pressure 91/40 101/38 121/54 O2 Sat by Pulse 99 99 99 Oximetry 05/04/21 05/04/21 05/04/21 07:15 07:30 07:45 Temperature Pulse Rate 74 74 71 Pulse Rate [ From Monitor] Respiratory 16 16 14 Rate Blood Pressure 113/51 112/48 115/52 O2 Sat by Pulse 100 100 100 Oximetry 05/04/21 05/04/21 05/04/21 07:46 08:00 08:15 Temperature 98.2 F Pulse Rate 69 71 Pulse Rate [ 69 From Monitor] Respiratory 14 14 Rate Blood Pressure 108/46 117/46 O2 Sat by Pulse 100 100 Oximetry 05/04/21 05/04/21 05/04/21 08:31 08:36 08:45 Temperature Pulse Rate 77 78 74 Pulse Rate [ From Monitor] Respiratory 16 14 Rate Blood Pressure 135/67 135/67 130/60 O2 Sat by Pulse 100 100 98 Oximetry 05/04/21 05/04/21 05/04/21 09:00 09:15 09:30 Temperature Pulse Rate 76 72 70 Pulse Rate [ From Monitor] Respiratory 14 14 13 Rate Blood Pressure 111/52 114/49 111/50 O2 Sat by Pulse 95 96 97 Oximetry 05/04/21 05/04/21 05/04/21 09:45 10:01 10:15 Temperature Pulse Rate 79 79 81 Pulse Rate [ From Monitor] Respiratory 17 17 20 Rate Blood Pressure 108/57 133/68 138/62 O2 Sat by Pulse 97 97 98 Oximetry 05/04/21 05/04/21 05/04/21 10:30 10:45 11:00 Temperature Pulse Rate 72 78 74 Pulse Rate [ From Monitor] Respiratory 14 19 14 Rate Blood Pressure 133/59 149/78 139/59 O2 Sat by Pulse 97 97 97 Oximetry - General Apperance Constitutional: comfortable - EENT EENT: PERRL, mucous membranes moist - Respiratory Respiratory: lungs clear, rhonchi - Cardiovascular Cardiovascular: regular rate, normal S1, normal S2 Extremities: no peripheral edema bilat, no clubbing, cyanosis - Gastrointestinal Gastrointestinal: normoactive bowel sounds - Integumentary Integumentary: normal - Neurologic Cranial nerve examination: PERRL, EOMI Speech examination: other (intubated) Detailed motor examination: other (slightly move left side > right to sternal rub,planter is down going) - Laboratory Findings CBC and BMP: 05/04/21 04:48 05/04/21 04:48 Abnormal Lab Findings: Abnormal Labs 04/20/21 04/20/21 04/20/21 17:10 17:10 17:10 WBC 17.4 H RBC 5.19 H Hgb Hct 46.8 H MCH 27 L RDW 17.2 H Plt Count Seg Neuts % (Manual) 98.0 H Lymphocytes % (Manual) 2.0 L Nucleated RBC % 1.0 H Seg Neutrophils # Man 17.1 H Lymphocytes # (Manual) 0.3 L PT ABG pH POC ABG pCO2 POC ABG pO2 ABG pO2 ABG O2 Saturation ABG Base Excess ABG Hemoglobin ABG Oxyhemoglobin ABG Potassium ABG Chloride ABG Glucose Oxyhemoglobin Carboxyhemoglobin Sodium 173 H* Potassium Chloride 132.9 H Carbon Dioxide 17 L BUN 120 H Creatinine 4.2 H Glucose 762 H* POC Glucose Hemoglobin A1c Lactic Acid Calcium Phosphorus Magnesium 3.80 H Transferrin AST 72 H ALT 63 H Alkaline Phosphatase 148 H Total Creatine Kinase 3697 H CK-MB (CK-2) 36.0 H Serum Total Protein Total Protein Albumin 2.2 L Zecxk-7-Bapnfhfsh Viijx-1-Gtqomjdir Gamma Globulins PEP Interpretation HDL Cholesterol TSH Arterial Blood Glucose Arterial Blood Ionized Calcium Urine WBC (Auto) Urine Creatinine Urine Total Protein Crossmatch 04/20/21 04/20/21 04/20/21 17:10 17:10 18:55 WBC RBC Hgb Hct MCH RDW Plt Count Seg Neuts % (Manual) Lymphocytes % (Manual) Nucleated RBC % Seg Neutrophils # Man Lymphocytes # (Manual) PT ABG pH POC ABG pCO2 POC ABG pO2 ABG pO2 ABG O2 Saturation ABG Base Excess ABG Hemoglobin ABG Oxyhemoglobin ABG Potassium ABG Chloride ABG Glucose Oxyhemoglobin Carboxyhemoglobin Sodium Potassium Chloride Carbon Dioxide BUN Creatinine Glucose POC Glucose 574 H Hemoglobin A1c Lactic Acid 2.60 H* Calcium Phosphorus Magnesium Transferrin AST ALT Alkaline Phosphatase Total Creatine Kinase CK-MB (CK-2) Serum Total Protein Total Protein Albumin Fdvaw-4-Vcvrzkngu Yiwkn-0-Babtzfzvy Gamma Globulins PEP Interpretation HDL Cholesterol TSH 6.040 H Arterial Blood Glucose Arterial Blood Ionized Calcium Urine WBC (Auto) Urine Creatinine Urine Total Protein Crossmatch 04/20/21 04/20/21 04/21/21 22:58 22:58 00:14 WBC RBC Hgb Hct MCH RDW Plt Count Seg Neuts % (Manual) Lymphocytes % (Manual) Nucleated RBC % Seg Neutrophils # Man Lymphocytes # (Manual) PT ABG pH POC ABG pCO2 POC ABG pO2 ABG pO2 ABG O2 Saturation ABG Base Excess ABG Hemoglobin ABG Oxyhemoglobin ABG Potassium ABG Chloride ABG Glucose Oxyhemoglobin Carboxyhemoglobin Sodium 172 H* Potassium 3.2 L Chloride 134.2 H Carbon Dioxide 17 L BUN 112 H Creatinine 3.8 H Glucose 803 H* POC Glucose > 600 H Hemoglobin A1c Lactic Acid Calcium 8.3 L Phosphorus Magnesium 3.50 H Transferrin AST ALT Alkaline Phosphatase Total Creatine Kinase CK-MB (CK-2) Serum Total Protein Total Protein Albumin Ucuga-5-Jngkbbsan Amyss-6-Eajvjyorr Gamma Globulins PEP Interpretation HDL Cholesterol TSH Arterial Blood Glucose Arterial Blood Ionized Calcium Urine WBC (Auto) Urine Creatinine Urine Total Protein Crossmatch 04/21/21 04/21/21 04/21/21 00:22 02:01 03:11 WBC RBC Hgb Hct MCH RDW Plt Count Seg Neuts % (Manual) Lymphocytes % (Manual) Nucleated RBC % Seg Neutrophils # Man Lymphocytes # (Manual) PT ABG pH POC ABG pCO2 POC ABG pO2 ABG pO2 ABG O2 Saturation ABG Base Excess ABG Hemoglobin ABG Oxyhemoglobin ABG Potassium ABG Chloride ABG Glucose Oxyhemoglobin Carboxyhemoglobin Sodium 176 H* 175 H* Potassium 2.9 L* 3.0 L Chloride 139.9 H 136.2 H Carbon Dioxide 17 L 19 L BUN 113 H 112 H Creatinine 3.9 H 3.6 H Glucose 729 H* 582 H* POC Glucose 404 H Hemoglobin A1c Lactic Acid Calcium Phosphorus Magnesium Transferrin AST ALT Alkaline Phosphatase Total Creatine Kinase CK-MB (CK-2) Serum Total Protein Total Protein Albumin Bcrex-6-Ndwztkgck Yzbzg-9-Atisnsbue Gamma Globulins PEP Interpretation HDL Cholesterol TSH Arterial Blood Glucose Arterial Blood Ionized Calcium Urine WBC (Auto) Urine Creatinine Urine Total Protein Crossmatch 04/21/21 04/21/21 04/21/21 03:20 03:41 03:41 WBC 14.1 H RBC Hgb Hct MCH 27 L RDW 16.8 H Plt Count 114 L Seg Neuts % (Manual) 97.0 H Lymphocytes % (Manual) 3.0 L Nucleated RBC % 1.0 H Seg Neutrophils # Man 13.7 H Lymphocytes # (Manual) 0.4 L PT ABG pH POC ABG pCO2 POC ABG pO2 ABG pO2 52.3 L ABG O2 Saturation 84.5 L ABG Base Excess -2.9 L ABG Hemoglobin ABG Oxyhemoglobin ABG Potassium ABG Chloride ABG Glucose Oxyhemoglobin 82.9 L Carboxyhemoglobin Sodium 179 H* Potassium 2.9 L* Chloride 138.2 H Carbon Dioxide 20 L BUN 111 H Creatinine 3.7 H Glucose 465 H POC Glucose Hemoglobin A1c Lactic Acid Calcium Phosphorus Magnesium Transferrin AST 73 H ALT 61 H Alkaline Phosphatase 144 H Total Creatine Kinase CK-MB (CK-2) Serum Total Protein Total Protein Albumin 2.5 L Saeoe-8-Shlyfiaad Lohik-7-Sbwwsikyp Gamma Globulins PEP Interpretation HDL Cholesterol TSH Arterial Blood Glucose Arterial Blood Ionized Calcium Urine WBC (Auto) Urine Creatinine Urine Total Protein Crossmatch 04/21/21 04/21/21 04/21/21 04:24 05:45 06:47 WBC RBC Hgb Hct MCH RDW Plt Count Seg Neuts % (Manual) Lymphocytes % (Manual) Nucleated RBC % Seg Neutrophils # Man Lymphocytes # (Manual) PT ABG pH POC ABG pCO2 POC ABG pO2 ABG pO2 ABG O2 Saturation ABG Base Excess ABG Hemoglobin ABG Oxyhemoglobin ABG Potassium ABG Chloride ABG Glucose Oxyhemoglobin Carboxyhemoglobin Sodium Potassium Chloride Carbon Dioxide BUN Creatinine Glucose POC Glucose 353 H 280 H 260 H Hemoglobin A1c Lactic Acid Calcium Phosphorus Magnesium Transferrin AST ALT Alkaline Phosphatase Total Creatine Kinase CK-MB (CK-2) Serum Total Protein Total Protein Albumin Eotlv-1-Qpmcbpsnu Segvi-6-Efwyodfyo Gamma Globulins PEP Interpretation HDL Cholesterol TSH Arterial Blood Glucose Arterial Blood Ionized Calcium Urine WBC (Auto) Urine Creatinine Urine Total Protein Crossmatch 04/21/21 04/21/21 04/21/21 08:01 11:11 12:51 WBC RBC Hgb Hct MCH RDW Plt Count Seg Neuts % (Manual) Lymphocytes % (Manual) Nucleated RBC % Seg Neutrophils # Man Lymphocytes # (Manual) PT ABG pH POC ABG pCO2 POC ABG pO2 ABG pO2 ABG O2 Saturation ABG Base Excess ABG Hemoglobin ABG Oxyhemoglobin ABG Potassium ABG Chloride ABG Glucose Oxyhemoglobin Carboxyhemoglobin Sodium Potassium Chloride Carbon Dioxide BUN Creatinine Glucose POC Glucose 68 L 146 H Hemoglobin A1c Lactic Acid Calcium Phosphorus Magnesium Transferrin AST ALT Alkaline Phosphatase Total Creatine Kinase CK-MB (CK-2) Serum Total Protein Total Protein Albumin Dmxxu-7-Hfwiexatm Ncsdb-0-Zrmcnxcha Gamma Globulins PEP Interpretation HDL Cholesterol TSH Arterial Blood Glucose Arterial Blood Ionized Calcium Urine WBC (Auto) Urine Creatinine 44.3 H Urine Total Protein 12 H Crossmatch 04/21/21 04/21/21 04/21/21 13:41 14:40 15:47 WBC RBC Hgb Hct MCH RDW Plt Count Seg Neuts % (Manual) Lymphocytes % (Manual) Nucleated RBC % Seg Neutrophils # Man Lymphocytes # (Manual) PT ABG pH 7.275 L 7.486 H POC ABG pCO2 POC ABG pO2 63.4 L ABG pO2 168.1 H ABG O2 Saturation 99.1 H ABG Base Excess ABG Hemoglobin 8.4 L 8.9 L ABG Oxyhemoglobin 89.5 L ABG Potassium ABG Chloride 108.0 H ABG Glucose 404 H Oxyhemoglobin Carboxyhemoglobin Sodium Potassium Chloride Carbon Dioxide BUN Creatinine Glucose POC Glucose 186 H Hemoglobin A1c Lactic Acid Calcium Phosphorus Magnesium Transferrin AST ALT Alkaline Phosphatase Total Creatine Kinase CK-MB (CK-2) Serum Total Protein Total Protein Albumin Kycbr-5-Rnesbffmh Cwlzp-3-Xllkasbet Gamma Globulins PEP Interpretation HDL Cholesterol TSH Arterial Blood Glucose 404 H Arterial Blood Ionized Calcium Urine WBC (Auto) Urine Creatinine Urine Total Protein Crossmatch 04/21/21 04/21/21 04/21/21 16:25 17:57 18:49 WBC RBC Hgb Hct MCH RDW Plt Count Seg Neuts % (Manual) Lymphocytes % (Manual) Nucleated RBC % Seg Neutrophils # Man Lymphocytes # (Manual) PT ABG pH POC ABG pCO2 POC ABG pO2 ABG pO2 ABG O2 Saturation ABG Base Excess ABG Hemoglobin ABG Oxyhemoglobin ABG Potassium ABG Chloride ABG Glucose Oxyhemoglobin Carboxyhemoglobin Sodium 174 H* Potassium 7.2 H* D Chloride 138.2 H Carbon Dioxide 21 L BUN 99 H Creatinine 4.0 H Glucose 157 H POC Glucose 172 H 143 H Hemoglobin A1c Lactic Acid Calcium Phosphorus Magnesium Transferrin AST 134 H ALT 71 H Alkaline Phosphatase 135 H Total Creatine Kinase 3504 H CK-MB (CK-2) Serum Total Protein Total Protein Albumin 2.2 L Vabug-6-Klzdrhtzn Bpded-7-Vucbwvztl Gamma Globulins PEP Interpretation HDL Cholesterol TSH Arterial Blood Glucose Arterial Blood Ionized Calcium Urine WBC (Auto) Urine Creatinine Urine Total Protein Crossmatch 04/21/21 04/21/21 04/21/21 19:10 20:26 20:53 WBC RBC Hgb Hct MCH RDW Plt Count Seg Neuts % (Manual) Lymphocytes % (Manual) Nucleated RBC % Seg Neutrophils # Man Lymphocytes # (Manual) PT ABG pH POC ABG pCO2 POC ABG pO2 ABG pO2 ABG O2 Saturation ABG Base Excess ABG Hemoglobin ABG Oxyhemoglobin ABG Potassium ABG Chloride ABG Glucose Oxyhemoglobin Carboxyhemoglobin Sodium Potassium Chloride Carbon Dioxide BUN Creatinine Glucose POC Glucose 126 H 190 H 116 H Hemoglobin A1c Lactic Acid Calcium Phosphorus Magnesium Transferrin AST ALT Alkaline Phosphatase Total Creatine Kinase CK-MB (CK-2) Serum Total Protein Total Protein Albumin Ciwwg-6-Lbjbmphuc Czkpj-0-Osycrcaww Gamma Globulins PEP Interpretation HDL Cholesterol TSH Arterial Blood Glucose Arterial Blood Ionized Calcium Urine WBC (Auto) Urine Creatinine Urine Total Protein Crossmatch 04/21/21 04/21/21 04/21/21 21:52 22:55 23:00 WBC RBC Hgb Hct MCH RDW Plt Count Seg Neuts % (Manual) Lymphocytes % (Manual) Nucleated RBC % Seg Neutrophils # Man Lymphocytes # (Manual) PT ABG pH POC ABG pCO2 POC ABG pO2 ABG pO2 ABG O2 Saturation ABG Base Excess ABG Hemoglobin ABG Oxyhemoglobin ABG Potassium ABG Chloride ABG Glucose Oxyhemoglobin Carboxyhemoglobin Sodium 176 H* Potassium Chloride 140.0 H Carbon Dioxide 20 L BUN 98 H Creatinine 3.9 H Glucose 206 H POC Glucose 135 H 158 H Hemoglobin A1c Lactic Acid Calcium Phosphorus Magnesium Transferrin AST ALT Alkaline Phosphatase Total Creatine Kinase 3240 H CK-MB (CK-2) Serum Total Protein Total Protein Albumin Vqisj-1-Mlroltkfy Atybw-4-Rqwwlqmmx Gamma Globulins PEP Interpretation HDL Cholesterol TSH Arterial Blood Glucose Arterial Blood Ionized Calcium Urine WBC (Auto) Urine Creatinine Urine Total Protein Crossmatch 04/22/21 04/22/21 04/22/21 00:01 00:39 00:58 WBC RBC Hgb Hct MCH RDW Plt Count Seg Neuts % (Manual) Lymphocytes % (Manual) Nucleated RBC % Seg Neutrophils # Man Lymphocytes # (Manual) PT ABG pH POC ABG pCO2 POC ABG pO2 ABG pO2 ABG O2 Saturation ABG Base Excess ABG Hemoglobin ABG Oxyhemoglobin ABG Potassium ABG Chloride ABG Glucose Oxyhemoglobin Carboxyhemoglobin Sodium 171 H* Potassium Chloride Carbon Dioxide BUN Creatinine Glucose POC Glucose 182 H 176 H Hemoglobin A1c Lactic Acid Calcium Phosphorus Magnesium Transferrin AST ALT Alkaline Phosphatase Total Creatine Kinase CK-MB (CK-2) Serum Total Protein Total Protein Albumin Pqxxt-3-Rbghxjnhz Pumpn-2-Ffljpycif Gamma Globulins PEP Interpretation HDL Cholesterol TSH Arterial Blood Glucose Arterial Blood Ionized Calcium Urine WBC (Auto) Urine Creatinine Urine Total Protein Crossmatch 04/22/21 04/22/21 04/22/21 01:04 04:52 06:07 WBC 11.2 H RBC Hgb Hct 44.3 H MCH 27 L RDW 17.1 H Plt Count 86 L Seg Neuts % (Manual) 86.0 H Lymphocytes % (Manual) 13.0 L Nucleated RBC % Seg Neutrophils # Man 9.6 H Lymphocytes # (Manual) PT ABG pH POC ABG pCO2 POC ABG pO2 ABG pO2 ABG O2 Saturation ABG Base Excess ABG Hemoglobin ABG Oxyhemoglobin ABG Potassium ABG Chloride ABG Glucose Oxyhemoglobin Carboxyhemoglobin Sodium Potassium Chloride Carbon Dioxide BUN Creatinine Glucose POC Glucose 143 H 206 H Hemoglobin A1c Lactic Acid Calcium Phosphorus Magnesium Transferrin AST ALT Alkaline Phosphatase Total Creatine Kinase CK-MB (CK-2) Serum Total Protein Total Protein Albumin Okqjs-1-Rtcbnjsye Ojtuf-8-Hjugialym Gamma Globulins PEP Interpretation HDL Cholesterol TSH Arterial Blood Glucose Arterial Blood Ionized Calcium Urine WBC (Auto) Urine Creatinine Urine Total Protein Crossmatch 04/22/21 04/22/21 04/22/21 06:09 07:18 08:59 WBC RBC Hgb Hct MCH RDW Plt Count Seg Neuts % (Manual) Lymphocytes % (Manual) Nucleated RBC % Seg Neutrophils # Man Lymphocytes # (Manual) PT ABG pH POC ABG pCO2 POC ABG pO2 ABG pO2 ABG O2 Saturation ABG Base Excess ABG Hemoglobin ABG Oxyhemoglobin ABG Potassium ABG Chloride ABG Glucose Oxyhemoglobin Carboxyhemoglobin Sodium Potassium Chloride Carbon Dioxide BUN Creatinine Glucose POC Glucose 163 H 158 H Hemoglobin A1c Lactic Acid Calcium Phosphorus Magnesium Transferrin AST ALT Alkaline Phosphatase Total Creatine Kinase 3105 H CK-MB (CK-2) Serum Total Protein Total Protein Albumin Eunht-3-Gemeyosti Yjnxb-9-Lyflddfef Gamma Globulins PEP Interpretation HDL Cholesterol TSH Arterial Blood Glucose Arterial Blood Ionized Calcium Urine WBC (Auto) Urine Creatinine Urine Total Protein Crossmatch 04/22/21 04/22/21 04/22/21 08:59 08:59 09:44 WBC RBC Hgb Hct MCH RDW Plt Count Seg Neuts % (Manual) Lymphocytes % (Manual) Nucleated RBC % Seg Neutrophils # Man Lymphocytes # (Manual) PT ABG pH POC ABG pCO2 POC ABG pO2 ABG pO2 ABG O2 Saturation ABG Base Excess ABG Hemoglobin ABG Oxyhemoglobin ABG Potassium ABG Chloride ABG Glucose Oxyhemoglobin Carboxyhemoglobin Sodium 169 H* Potassium 3.5 L Chloride 134.5 H Carbon Dioxide 20 L BUN 95 H Creatinine 3.6 H Glucose 151 H POC Glucose Hemoglobin A1c Lactic Acid Calcium Phosphorus Magnesium 2.80 H Transferrin AST 121 H ALT 75 H Alkaline Phosphatase 137 H Total Creatine Kinase CK-MB (CK-2) Serum Total Protein 5.5 L Total Protein 6.0 L Albumin 2.8 L 2.1 L Xixqm-3-Bygpbulan 0.6 H Xhbfg-2-Egymnwoga 1.0 H Gamma Globulins 0.6 L PEP Interpretation see below H HDL Cholesterol TSH Arterial Blood Glucose Arterial Blood Ionized Calcium Urine WBC (Auto) Urine Creatinine Urine Total Protein Crossmatch 04/22/21 04/22/21 04/22/21 10:24 12:20 13:19 WBC RBC Hgb Hct MCH RDW Plt Count Seg Neuts % (Manual) Lymphocytes % (Manual) Nucleated RBC % Seg Neutrophils # Man Lymphocytes # (Manual) PT ABG pH POC ABG pCO2 POC ABG pO2 ABG pO2 ABG O2 Saturation ABG Base Excess ABG Hemoglobin ABG Oxyhemoglobin ABG Potassium ABG Chloride ABG Glucose Oxyhemoglobin Carboxyhemoglobin Sodium Potassium Chloride Carbon Dioxide BUN Creatinine Glucose POC Glucose 107 H 131 H 147 H Hemoglobin A1c Lactic Acid Calcium Phosphorus Magnesium Transferrin AST ALT Alkaline Phosphatase Total Creatine Kinase CK-MB (CK-2) Serum Total Protein Total Protein Albumin Lurqw-6-Gharpzfpl Ibdhe-1-Socoroktr Gamma Globulins PEP Interpretation HDL Cholesterol TSH Arterial Blood Glucose Arterial Blood Ionized Calcium Urine WBC (Auto) Urine Creatinine Urine Total Protein Crossmatch 04/22/21 04/22/21 04/22/21 14:16 15:22 15:55 WBC RBC Hgb Hct MCH RDW Plt Count Seg Neuts % (Manual) Lymphocytes % (Manual) Nucleated RBC % Seg Neutrophils # Man Lymphocytes # (Manual) PT ABG pH POC ABG pCO2 POC ABG pO2 ABG pO2 ABG O2 Saturation ABG Base Excess ABG Hemoglobin ABG Oxyhemoglobin ABG Potassium ABG Chloride ABG Glucose Oxyhemoglobin Carboxyhemoglobin Sodium 169 H* Potassium Chloride 133.5 H Carbon Dioxide 19 L BUN 94 H Creatinine 3.8 H Glucose 150 H POC Glucose 154 H 136 H Hemoglobin A1c Lactic Acid Calcium Phosphorus Magnesium Transferrin AST ALT Alkaline Phosphatase Total Creatine Kinase CK-MB (CK-2) Serum Total Protein Total Protein Albumin Alfbv-5-Qgkvegilm Modtm-7-Brlolsoxe Gamma Globulins PEP Interpretation HDL Cholesterol TSH Arterial Blood Glucose Arterial Blood Ionized Calcium Urine WBC (Auto) Urine Creatinine Urine Total Protein Crossmatch 04/22/21 04/22/21 04/22/21 15:55 16:22 18:11 WBC RBC Hgb Hct MCH RDW Plt Count Seg Neuts % (Manual) Lymphocytes % (Manual) Nucleated RBC % Seg Neutrophils # Man Lymphocytes # (Manual) PT ABG pH POC ABG pCO2 POC ABG pO2 ABG pO2 ABG O2 Saturation ABG Base Excess ABG Hemoglobin ABG Oxyhemoglobin ABG Potassium ABG Chloride ABG Glucose Oxyhemoglobin Carboxyhemoglobin Sodium Potassium Chloride Carbon Dioxide BUN Creatinine Glucose POC Glucose 140 H Hemoglobin A1c 17.1 H Lactic Acid Calcium Phosphorus Magnesium Transferrin AST ALT Alkaline Phosphatase Total Creatine Kinase 2497 H CK-MB (CK-2) Serum Total Protein Total Protein Albumin Atesj-6-Pjignghis Twzzo-2-Eigvitpdh Gamma Globulins PEP Interpretation HDL Cholesterol TSH Arterial Blood Glucose Arterial Blood Ionized Calcium Urine WBC (Auto) Urine Creatinine Urine Total Protein Crossmatch 04/22/21 04/22/21 04/23/21 18:26 23:19 00:27 WBC RBC Hgb Hct MCH RDW Plt Count Seg Neuts % (Manual) Lymphocytes % (Manual) Nucleated RBC % Seg Neutrophils # Man Lymphocytes # (Manual) PT ABG pH POC ABG pCO2 POC ABG pO2 ABG pO2 ABG O2 Saturation ABG Base Excess ABG Hemoglobin ABG Oxyhemoglobin ABG Potassium ABG Chloride ABG Glucose Oxyhemoglobin Carboxyhemoglobin Sodium 162 H* Potassium Chloride Carbon Dioxide BUN Creatinine Glucose POC Glucose 146 H 188 H Hemoglobin A1c Lactic Acid Calcium Phosphorus Magnesium Transferrin AST ALT Alkaline Phosphatase Total Creatine Kinase CK-MB (CK-2) Serum Total Protein Total Protein Albumin Yvtlo-5-Qsizcuhkt Spfir-0-Alaxbmbjx Gamma Globulins PEP Interpretation HDL Cholesterol TSH Arterial Blood Glucose Arterial Blood Ionized Calcium Urine WBC (Auto) Urine Creatinine Urine Total Protein Crossmatch 04/23/21 04/23/21 04/23/21 05:23 07:50 08:13 WBC RBC Hgb Hct MCH RDW Plt Count Seg Neuts % (Manual) Lymphocytes % (Manual) Nucleated RBC % Seg Neutrophils # Man Lymphocytes # (Manual) PT ABG pH POC ABG pCO2 POC ABG pO2 ABG pO2 ABG O2 Saturation ABG Base Excess ABG Hemoglobin ABG Oxyhemoglobin ABG Potassium ABG Chloride ABG Glucose Oxyhemoglobin Carboxyhemoglobin Sodium Potassium Chloride Carbon Dioxide BUN Creatinine Glucose POC Glucose 212 H 239 H Hemoglobin A1c Lactic Acid Calcium Phosphorus Magnesium Transferrin AST ALT Alkaline Phosphatase Total Creatine Kinase 1803 H CK-MB (CK-2) Serum Total Protein Total Protein Albumin Pgrdy-5-Twkvngact Cqijf-4-Jwynwiclr Gamma Globulins PEP Interpretation HDL Cholesterol TSH Arterial Blood Glucose Arterial Blood Ionized Calcium Urine WBC (Auto) Urine Creatinine Urine Total Protein Crossmatch 04/23/21 04/23/21 04/23/21 08:13 08:13 12:06 WBC 11.9 H RBC Hgb Hct MCH 26 L RDW 16.5 H Plt Count 72 L Seg Neuts % (Manual) 80.0 H Lymphocytes % (Manual) 5.0 L Nucleated RBC % Seg Neutrophils # Man 9.5 H Lymphocytes # (Manual) 0.6 L PT ABG pH POC ABG pCO2 POC ABG pO2 ABG pO2 ABG O2 Saturation ABG Base Excess ABG Hemoglobin ABG Oxyhemoglobin ABG Potassium ABG Chloride ABG Glucose Oxyhemoglobin Carboxyhemoglobin Sodium 164 H* Potassium Chloride 128.0 H Carbon Dioxide 21 L BUN 93 H Creatinine 3.8 H Glucose 293 H POC Glucose 311 H Hemoglobin A1c Lactic Acid Calcium Phosphorus Magnesium Transferrin AST 99 H ALT 70 H Alkaline Phosphatase 147 H Total Creatine Kinase CK-MB (CK-2) Serum Total Protein Total Protein 6.1 L Albumin 2.0 L Vejhm-5-Bjwixhpop Vgafr-3-Ywwrrubfb Gamma Globulins PEP Interpretation HDL Cholesterol TSH Arterial Blood Glucose Arterial Blood Ionized Calcium Urine WBC (Auto) Urine Creatinine Urine Total Protein Crossmatch 04/23/21 04/23/21 04/24/21 17:35 18:17 02:13 WBC RBC Hgb Hct MCH RDW Plt Count Seg Neuts % (Manual) Lymphocytes % (Manual) Nucleated RBC % Seg Neutrophils # Man Lymphocytes # (Manual) PT ABG pH POC ABG pCO2 POC ABG pO2 ABG pO2 ABG O2 Saturation ABG Base Excess ABG Hemoglobin ABG Oxyhemoglobin ABG Potassium ABG Chloride ABG Glucose Oxyhemoglobin Carboxyhemoglobin Sodium 160 H 160 H Potassium Chloride Carbon Dioxide BUN Creatinine Glucose POC Glucose 370 H Hemoglobin A1c Lactic Acid Calcium Phosphorus Magnesium Transferrin AST ALT Alkaline Phosphatase Total Creatine Kinase CK-MB (CK-2) Serum Total Protein Total Protein Albumin Frjne-9-Cntqyduuv Gtdpe-5-Qoodvdloj Gamma Globulins PEP Interpretation HDL Cholesterol TSH Arterial Blood Glucose Arterial Blood Ionized Calcium Urine WBC (Auto) Urine Creatinine Urine Total Protein Crossmatch 04/24/21 04/24/21 04/24/21 06:00 06:00 07:46 WBC RBC Hgb Hct MCH 27 L RDW 17.0 H Plt Count 58 L Seg Neuts % (Manual) Lymphocytes % (Manual) 2.0 L Nucleated RBC % Seg Neutrophils # Man 8.9 H Lymphocytes # (Manual) 0.2 L PT ABG pH POC ABG pCO2 POC ABG pO2 ABG pO2 ABG O2 Saturation ABG Base Excess ABG Hemoglobin ABG Oxyhemoglobin ABG Potassium ABG Chloride ABG Glucose Oxyhemoglobin Carboxyhemoglobin Sodium Potassium Chloride Carbon Dioxide BUN Creatinine Glucose POC Glucose 395 H Hemoglobin A1c Lactic Acid Calcium Phosphorus Magnesium 2.90 H Transferrin AST ALT Alkaline Phosphatase Total Creatine Kinase CK-MB (CK-2) Serum Total Protein Total Protein Albumin Lmfci-7-Jtnemxbtr Ncofx-4-Jmitzteap Gamma Globulins PEP Interpretation HDL Cholesterol TSH Arterial Blood Glucose Arterial Blood Ionized Calcium Urine WBC (Auto) Urine Creatinine Urine Total Protein Crossmatch 04/24/21 04/24/21 04/24/21 08:15 11:34 13:11 WBC RBC Hgb Hct MCH RDW Plt Count Seg Neuts % (Manual) Lymphocytes % (Manual) Nucleated RBC % Seg Neutrophils # Man Lymphocytes # (Manual) PT ABG pH POC ABG pCO2 POC ABG pO2 ABG pO2 ABG O2 Saturation ABG Base Excess ABG Hemoglobin ABG Oxyhemoglobin ABG Potassium ABG Chloride ABG Glucose Oxyhemoglobin Carboxyhemoglobin Sodium 159 H Potassium Chloride 125.6 H Carbon Dioxide 19 L BUN 94 H Creatinine 3.7 H Glucose 514 H* POC Glucose 422 H 384 H Hemoglobin A1c Lactic Acid Calcium Phosphorus Magnesium Transferrin AST ALT 61 H Alkaline Phosphatase 155 H Total Creatine Kinase CK-MB (CK-2) Serum Total Protein Total Protein 6.1 L Albumin 1.5 L Zeiwv-1-Lwlxzhixc Vhnln-5-Tdnyinkox Gamma Globulins PEP Interpretation HDL Cholesterol TSH Arterial Blood Glucose Arterial Blood Ionized Calcium Urine WBC (Auto) Urine Creatinine Urine Total Protein Crossmatch 04/24/21 04/24/21 04/24/21 14:01 15:03 17:29 WBC RBC Hgb Hct MCH RDW Plt Count Seg Neuts % (Manual) Lymphocytes % (Manual) Nucleated RBC % Seg Neutrophils # Man Lymphocytes # (Manual) PT ABG pH POC ABG pCO2 POC ABG pO2 ABG pO2 ABG O2 Saturation ABG Base Excess ABG Hemoglobin ABG Oxyhemoglobin ABG Potassium ABG Chloride ABG Glucose Oxyhemoglobin Carboxyhemoglobin Sodium Potassium Chloride Carbon Dioxide BUN Creatinine Glucose POC Glucose 423 H 418 H Hemoglobin A1c Lactic Acid Calcium Phosphorus Magnesium Transferrin 112 L AST ALT Alkaline Phosphatase Total Creatine Kinase CK-MB (CK-2) Serum Total Protein Total Protein Albumin Aovzj-5-Dcasjlkin Dngqd-6-Rcaezfqzj Gamma Globulins PEP Interpretation HDL Cholesterol TSH Arterial Blood Glucose Arterial Blood Ionized Calcium Urine WBC (Auto) Urine Creatinine Urine Total Protein Crossmatch 04/24/21 04/24/21 04/24/21 18:28 19:41 22:33 WBC RBC Hgb Hct MCH RDW Plt Count Seg Neuts % (Manual) Lymphocytes % (Manual) Nucleated RBC % Seg Neutrophils # Man Lymphocytes # (Manual) PT ABG pH POC ABG pCO2 POC ABG pO2 ABG pO2 ABG O2 Saturation ABG Base Excess ABG Hemoglobin ABG Oxyhemoglobin ABG Potassium ABG Chloride ABG Glucose Oxyhemoglobin Carboxyhemoglobin Sodium Potassium Chloride Carbon Dioxide BUN Creatinine Glucose POC Glucose 335 H 321 H 349 H Hemoglobin A1c Lactic Acid Calcium Phosphorus Magnesium Transferrin AST ALT Alkaline Phosphatase Total Creatine Kinase CK-MB (CK-2) Serum Total Protein Total Protein Albumin Wrdcd-8-Ljfkhnmcg Kyuqs-0-Czscswrmf Gamma Globulins PEP Interpretation HDL Cholesterol TSH Arterial Blood Glucose Arterial Blood Ionized Calcium Urine WBC (Auto) Urine Creatinine Urine Total Protein Crossmatch 04/25/21 04/25/21 04/25/21 01:28 02:28 03:25 WBC RBC Hgb Hct MCH RDW Plt Count Seg Neuts % (Manual) Lymphocytes % (Manual) Nucleated RBC % Seg Neutrophils # Man Lymphocytes # (Manual) PT ABG pH POC ABG pCO2 POC ABG pO2 ABG pO2 ABG O2 Saturation ABG Base Excess ABG Hemoglobin ABG Oxyhemoglobin ABG Potassium ABG Chloride ABG Glucose Oxyhemoglobin Carboxyhemoglobin Sodium Potassium Chloride Carbon Dioxide BUN Creatinine Glucose POC Glucose 283 H 247 H 196 H Hemoglobin A1c Lactic Acid Calcium Phosphorus Magnesium Transferrin AST ALT Alkaline Phosphatase Total Creatine Kinase CK-MB (CK-2) Serum Total Protein Total Protein Albumin Tqwmn-7-Bdurzbbqk Mcxrl-3-Mrasgfqrw Gamma Globulins PEP Interpretation HDL Cholesterol TSH Arterial Blood Glucose Arterial Blood Ionized Calcium Urine WBC (Auto) Urine Creatinine Urine Total Protein Crossmatch 04/25/21 04/25/21 04/25/21 04:22 05:40 05:45 WBC RBC Hgb Hct MCH 27 L RDW 17.0 H Plt Count 64 L Seg Neuts % (Manual) 84.0 H Lymphocytes % (Manual) 6.0 L Nucleated RBC % 1.0 H Seg Neutrophils # Man Lymphocytes # (Manual) 0.4 L PT ABG pH POC ABG pCO2 POC ABG pO2 ABG pO2 ABG O2 Saturation ABG Base Excess ABG Hemoglobin ABG Oxyhemoglobin ABG Potassium ABG Chloride ABG Glucose Oxyhemoglobin Carboxyhemoglobin Sodium Potassium Chloride Carbon Dioxide BUN Creatinine Glucose POC Glucose 207 H 204 H Hemoglobin A1c Lactic Acid Calcium Phosphorus Magnesium Transferrin AST ALT Alkaline Phosphatase Total Creatine Kinase CK-MB (CK-2) Serum Total Protein Total Protein Albumin Iicpd-5-Wbfhspxlz Rcynd-6-Hwarrbewh Gamma Globulins PEP Interpretation HDL Cholesterol TSH Arterial Blood Glucose Arterial Blood Ionized Calcium Urine WBC (Auto) Urine Creatinine Urine Total Protein Crossmatch 04/25/21 04/25/21 04/25/21 06:43 07:37 08:11 WBC RBC Hgb Hct MCH RDW Plt Count Seg Neuts % (Manual) Lymphocytes % (Manual) Nucleated RBC % Seg Neutrophils # Man Lymphocytes # (Manual) PT ABG pH POC ABG pCO2 POC ABG pO2 ABG pO2 ABG O2 Saturation ABG Base Excess ABG Hemoglobin ABG Oxyhemoglobin ABG Potassium ABG Chloride ABG Glucose Oxyhemoglobin Carboxyhemoglobin Sodium 148 H D Potassium Chloride 115.7 H Carbon Dioxide 21 L BUN 83 H Creatinine 3.6 H Glucose 247 H POC Glucose 238 H 201 H Hemoglobin A1c Lactic Acid Calcium Phosphorus Magnesium Transferrin AST 63 H ALT 62 H Alkaline Phosphatase 143 H Total Creatine Kinase CK-MB (CK-2) Serum Total Protein Total Protein 5.4 L Albumin 1.4 L Sgchr-7-Okyozrfoa Ekhbk-8-Zaqjrfjqf Gamma Globulins PEP Interpretation HDL Cholesterol TSH Arterial Blood Glucose Arterial Blood Ionized Calcium Urine WBC (Auto) Urine Creatinine Urine Total Protein Crossmatch 04/25/21 04/25/21 04/25/21 08:11 08:41 09:22 WBC RBC Hgb Hct MCH RDW Plt Count Seg Neuts % (Manual) Lymphocytes % (Manual) Nucleated RBC % Seg Neutrophils # Man Lymphocytes # (Manual) PT ABG pH POC ABG pCO2 POC ABG pO2 ABG pO2 ABG O2 Saturation ABG Base Excess ABG Hemoglobin ABG Oxyhemoglobin ABG Potassium ABG Chloride ABG Glucose Oxyhemoglobin Carboxyhemoglobin Sodium Potassium Chloride Carbon Dioxide BUN Creatinine Glucose POC Glucose 220 H 228 H Hemoglobin A1c Lactic Acid Calcium Phosphorus Magnesium 2.50 H Transferrin AST ALT Alkaline Phosphatase Total Creatine Kinase CK-MB (CK-2) Serum Total Protein Total Protein Albumin Kpqtk-2-Memhhkton Eajxk-6-Hafbctykc Gamma Globulins PEP Interpretation HDL Cholesterol TSH Arterial Blood Glucose Arterial Blood Ionized Calcium Urine WBC (Auto) Urine Creatinine Urine Total Protein Crossmatch 04/25/21 04/25/21 04/25/21 10:31 11:44 12:23 WBC RBC Hgb Hct MCH RDW Plt Count Seg Neuts % (Manual) Lymphocytes % (Manual) Nucleated RBC % Seg Neutrophils # Man Lymphocytes # (Manual) PT ABG pH POC ABG pCO2 POC ABG pO2 ABG pO2 ABG O2 Saturation ABG Base Excess ABG Hemoglobin ABG Oxyhemoglobin ABG Potassium ABG Chloride ABG Glucose Oxyhemoglobin Carboxyhemoglobin Sodium Potassium Chloride Carbon Dioxide BUN Creatinine Glucose POC Glucose 215 H 191 H 229 H Hemoglobin A1c Lactic Acid Calcium Phosphorus Magnesium Transferrin AST ALT Alkaline Phosphatase Total Creatine Kinase CK-MB (CK-2) Serum Total Protein Total Protein Albumin Eyrbn-4-Awubzccre Rworw-7-Gpqaclopq Gamma Globulins PEP Interpretation HDL Cholesterol TSH Arterial Blood Glucose Arterial Blood Ionized Calcium Urine WBC (Auto) Urine Creatinine Urine Total Protein Crossmatch 04/25/21 04/25/21 04/25/21 13:48 14:11 18:01 WBC RBC Hgb Hct MCH RDW Plt Count Seg Neuts % (Manual) Lymphocytes % (Manual) Nucleated RBC % Seg Neutrophils # Man Lymphocytes # (Manual) PT ABG pH POC ABG pCO2 POC ABG pO2 ABG pO2 ABG O2 Saturation ABG Base Excess ABG Hemoglobin ABG Oxyhemoglobin ABG Potassium ABG Chloride ABG Glucose Oxyhemoglobin Carboxyhemoglobin Sodium Potassium Chloride Carbon Dioxide BUN Creatinine Glucose POC Glucose 177 H 161 H 264 H Hemoglobin A1c Lactic Acid Calcium Phosphorus Magnesium Transferrin AST ALT Alkaline Phosphatase Total Creatine Kinase CK-MB (CK-2) Serum Total Protein Total Protein Albumin Fuwfn-6-Qpvpvmfuv Hqkbd-8-Nhccekmcs Gamma Globulins PEP Interpretation HDL Cholesterol TSH Arterial Blood Glucose Arterial Blood Ionized Calcium Urine WBC (Auto) Urine Creatinine Urine Total Protein Crossmatch 04/25/21 04/26/21 04/26/21 21:31 01:19 06:31 WBC RBC Hgb Hct MCH RDW Plt Count Seg Neuts % (Manual) Lymphocytes % (Manual) Nucleated RBC % Seg Neutrophils # Delbert Lymphocytes # (Manual) PT ABG pH POC ABG pCO2 POC ABG pO2 ABG pO2 ABG O2 Saturation ABG Base Excess ABG Hemoglobin ABG Oxyhemoglobin ABG Potassium ABG Chloride ABG Glucose Oxyhemoglobin Carboxyhemoglobin Sodium Potassium Chloride Carbon Dioxide BUN Creatinine Glucose POC Glucose 371 H 356 H 428 H Hemoglobin A1c Lactic Acid Calcium Phosphorus Magnesium Transferrin AST ALT Alkaline Phosphatase Total Creatine Kinase CK-MB (CK-2) Serum Total Protein Total Protein Albumin Vavjs-8-Svsnvjbaf Drwbt-9-Yamrsvlpy Gamma Globulins PEP Interpretation HDL Cholesterol TSH Arterial Blood Glucose Arterial Blood Ionized Calcium Urine WBC (Auto) Urine Creatinine Urine Total Protein Crossmatch 04/26/21 04/26/21 04/26/21 09:13 09:33 09:33 WBC RBC Hgb Hct MCH 27 L RDW 16.9 H Plt Count 58 L Seg Neuts % (Manual) 77.0 H Lymphocytes % (Manual) 4.0 L Nucleated RBC % 2.0 H Seg Neutrophils # Delbert Lymphocytes # (Manual) 0.3 L PT ABG pH POC ABG pCO2 POC ABG pO2 ABG pO2 ABG O2 Saturation ABG Base Excess ABG Hemoglobin ABG Oxyhemoglobin ABG Potassium ABG Chloride ABG Glucose Oxyhemoglobin Carboxyhemoglobin Sodium Potassium Chloride Carbon Dioxide BUN Creatinine Glucose POC Glucose 454 H Hemoglobin A1c Lactic Acid Calcium Phosphorus 5.60 H D Magnesium Transferrin AST ALT Alkaline Phosphatase Total Creatine Kinase CK-MB (CK-2) Serum Total Protein Total Protein Albumin Hvyxz-0-Glduelohz Pixne-9-Ljfnyglgo Gamma Globulins PEP Interpretation HDL Cholesterol TSH Arterial Blood Glucose Arterial Blood Ionized Calcium Urine WBC (Auto) Urine Creatinine Urine Total Protein Crossmatch 04/26/21 04/26/21 04/26/21 09:33 11:00 12:36 WBC RBC Hgb Hct MCH RDW Plt Count Seg Neuts % (Manual) Lymphocytes % (Manual) Nucleated RBC % Seg Neutrophils # Man Lymphocytes # (Manual) PT ABG pH 7.281 L POC ABG pCO2 POC ABG pO2 66.4 L ABG pO2 ABG O2 Saturation ABG Base Excess ABG Hemoglobin 10.9 L ABG Oxyhemoglobin 91 L ABG Potassium ABG Chloride ABG Glucose 521 H Oxyhemoglobin Carboxyhemoglobin Sodium Potassium Chloride Carbon Dioxide 19 L BUN 98 H Creatinine 3.8 H Glucose 530 H* POC Glucose 414 H Hemoglobin A1c Lactic Acid Calcium 8.1 L Phosphorus Magnesium Transferrin AST 60 H ALT 72 H Alkaline Phosphatase 168 H Total Creatine Kinase CK-MB (CK-2) Serum Total Protein Total Protein 4.6 L Albumin 1.7 L Qehce-0-Cfvqnlptg Gbhsq-5-Obxlkzcfx Gamma Globulins PEP Interpretation HDL Cholesterol TSH Arterial Blood Glucose 521 H Arterial Blood Ionized Calcium Urine WBC (Auto) Urine Creatinine Urine Total Protein Crossmatch 04/26/21 04/26/21 04/26/21 15:39 16:18 21:14 WBC RBC Hgb Hct MCH RDW Plt Count Seg Neuts % (Manual) Lymphocytes % (Manual) Nucleated RBC % Seg Neutrophils # Man Lymphocytes # (Manual) PT ABG pH 7.275 L POC ABG pCO2 POC ABG pO2 63.4 L ABG pO2 ABG O2 Saturation ABG Base Excess ABG Hemoglobin 8.4 L ABG Oxyhemoglobin 89.5 L ABG Potassium ABG Chloride 108.0 H ABG Glucose 404 H Oxyhemoglobin Carboxyhemoglobin Sodium Potassium Chloride Carbon Dioxide BUN Creatinine Glucose POC Glucose 324 H 242 H Hemoglobin A1c Lactic Acid Calcium Phosphorus Magnesium Transferrin AST ALT Alkaline Phosphatase Total Creatine Kinase CK-MB (CK-2) Serum Total Protein Total Protein Albumin Dwniq-5-Foohvxcrx Gurhf-8-Klrqeejnt Gamma Globulins PEP Interpretation HDL Cholesterol TSH Arterial Blood Glucose 404 H Arterial Blood Ionized Calcium Urine WBC (Auto) Urine Creatinine Urine Total Protein Crossmatch 04/27/21 04/27/21 04/27/21 00:07 05:47 06:23 WBC RBC Hgb Hct MCH RDW Plt Count Seg Neuts % (Manual) Lymphocytes % (Manual) Nucleated RBC % Seg Neutrophils # Man Lymphocytes # (Manual) PT ABG pH POC ABG pCO2 POC ABG pO2 ABG pO2 ABG O2 Saturation ABG Base Excess ABG Hemoglobin ABG Oxyhemoglobin ABG Potassium ABG Chloride ABG Glucose Oxyhemoglobin Carboxyhemoglobin Sodium Potassium Chloride Carbon Dioxide BUN Creatinine Glucose POC Glucose 282 H 214 H 187 H Hemoglobin A1c Lactic Acid Calcium Phosphorus Magnesium Transferrin AST ALT Alkaline Phosphatase Total Creatine Kinase CK-MB (CK-2) Serum Total Protein Total Protein Albumin Drpiq-6-Uyriaxobb Oyuis-2-Mxwnorcun Gamma Globulins PEP Interpretation HDL Cholesterol TSH Arterial Blood Glucose Arterial Blood Ionized Calcium Urine WBC (Auto) Urine Creatinine Urine Total Protein Crossmatch 04/27/21 04/27/21 04/27/21 07:43 08:30 11:54 WBC RBC Hgb Hct MCH RDW Plt Count Seg Neuts % (Manual) Lymphocytes % (Manual) Nucleated RBC % Seg Neutrophils # Man Lymphocytes # (Manual) PT ABG pH 7.309 L POC ABG pCO2 POC ABG pO2 70.6 L ABG pO2 ABG O2 Saturation ABG Base Excess ABG Hemoglobin 9.16 L ABG Oxyhemoglobin 92.4 L ABG Potassium ABG Chloride ABG Glucose Oxyhemoglobin Carboxyhemoglobin Sodium Potassium Chloride 110.1 H Carbon Dioxide 15 L BUN 109 H Creatinine 4.3 H Glucose 218 H POC Glucose 147 H Hemoglobin A1c Lactic Acid Calcium Phosphorus Magnesium Transferrin AST 53 H ALT Alkaline Phosphatase 148 H Total Creatine Kinase 1000 H CK-MB (CK-2) Serum Total Protein Total Protein 5.2 L Albumin 1.2 L Hoyzp-5-Zhbpxexpc Oygnj-2-Srbfkjjym Gamma Globulins PEP Interpretation HDL Cholesterol TSH Arterial Blood Glucose Arterial Blood Ionized Calcium Urine WBC (Auto) Urine Creatinine Urine Total Protein Crossmatch 04/27/21 04/27/21 04/28/21 21:08 23:28 04:00 WBC 12.6 H RBC 3.59 L Hgb 9.4 L Hct MCH 26 L RDW 16.6 H Plt Count 111 L Seg Neuts % (Manual) Lymphocytes % (Manual) 1.0 L Nucleated RBC % 4.0 H Seg Neutrophils # Man 11.6 H Lymphocytes # (Manual) 0.1 L PT ABG pH POC ABG pCO2 POC ABG pO2 ABG pO2 ABG O2 Saturation ABG Base Excess ABG Hemoglobin ABG Oxyhemoglobin ABG Potassium ABG Chloride ABG Glucose Oxyhemoglobin Carboxyhemoglobin Sodium Potassium Chloride Carbon Dioxide BUN Creatinine Glucose POC Glucose 136 H 201 H Hemoglobin A1c Lactic Acid Calcium Phosphorus Magnesium Transferrin AST ALT Alkaline Phosphatase Total Creatine Kinase CK-MB (CK-2) Serum Total Protein Total Protein Albumin Klrdl-6-Xmatfvfms Fsdhe-9-Cicckonfq Gamma Globulins PEP Interpretation HDL Cholesterol TSH Arterial Blood Glucose Arterial Blood Ionized Calcium Urine WBC (Auto) Urine Creatinine Urine Total Protein Crossmatch 04/28/21 04/28/21 04/28/21 04:00 05:00 05:08 WBC RBC Hgb Hct MCH RDW Plt Count Seg Neuts % (Manual) Lymphocytes % (Manual) Nucleated RBC % Seg Neutrophils # Man Lymphocytes # (Manual) PT 15.3 H ABG pH POC ABG pCO2 POC ABG pO2 ABG pO2 ABG O2 Saturation ABG Base Excess ABG Hemoglobin ABG Oxyhemoglobin ABG Potassium ABG Chloride ABG Glucose Oxyhemoglobin Carboxyhemoglobin Sodium 147 H Potassium 3.5 L D Chloride Carbon Dioxide BUN 79 H Creatinine 3.8 H Glucose 194 H POC Glucose 183 H Hemoglobin A1c Lactic Acid Calcium 8.1 L Phosphorus Magnesium Transferrin AST ALT Alkaline Phosphatase Total Creatine Kinase CK-MB (CK-2) Serum Total Protein Total Protein Albumin Udjgj-2-Kzmkvmrwm Gtgow-0-Aznfkfjnc Gamma Globulins PEP Interpretation HDL Cholesterol TSH Arterial Blood Glucose Arterial Blood Ionized Calcium Urine WBC (Auto) Urine Creatinine Urine Total Protein Crossmatch 04/28/21 04/28/21 04/28/21 05:18 11:04 17:16 WBC RBC Hgb Hct MCH RDW Plt Count Seg Neuts % (Manual) Lymphocytes % (Manual) Nucleated RBC % Seg Neutrophils # Man Lymphocytes # (Manual) PT ABG pH POC ABG pCO2 POC ABG pO2 66.5 L ABG pO2 ABG O2 Saturation ABG Base Excess ABG Hemoglobin 9.7 L ABG Oxyhemoglobin 92.5 L ABG Potassium 3.2 L ABG Chloride ABG Glucose 200 H Oxyhemoglobin Carboxyhemoglobin Sodium Potassium Chloride Carbon Dioxide BUN Creatinine Glucose POC Glucose 174 H 135 H Hemoglobin A1c Lactic Acid Calcium Phosphorus Magnesium Transferrin AST ALT Alkaline Phosphatase Total Creatine Kinase CK-MB (CK-2) Serum Total Protein Total Protein Albumin Xpmvx-4-Ugsvtdexe Wghrq-0-Kwuphcolm Gamma Globulins PEP Interpretation HDL Cholesterol TSH Arterial Blood Glucose 200 H Arterial Blood Ionized Calcium 4.5 L Urine WBC (Auto) Urine Creatinine Urine Total Protein Crossmatch 04/28/21 04/28/21 04/29/21 21:14 23:41 01:16 WBC RBC Hgb Hct MCH RDW Plt Count Seg Neuts % (Manual) Lymphocytes % (Manual) Nucleated RBC % Seg Neutrophils # Man Lymphocytes # (Manual) PT ABG pH POC ABG pCO2 POC ABG pO2 ABG pO2 ABG O2 Saturation ABG Base Excess ABG Hemoglobin ABG Oxyhemoglobin ABG Potassium ABG Chloride ABG Glucose Oxyhemoglobin Carboxyhemoglobin Sodium Potassium Chloride Carbon Dioxide BUN Creatinine Glucose POC Glucose 134 H 171 H 236 H Hemoglobin A1c Lactic Acid Calcium Phosphorus Magnesium Transferrin AST ALT Alkaline Phosphatase Total Creatine Kinase CK-MB (CK-2) Serum Total Protein Total Protein Albumin Zfdzg-6-Vtzdwygwr Kmmgh-3-Vpfmzudlf Gamma Globulins PEP Interpretation HDL Cholesterol TSH Arterial Blood Glucose Arterial Blood Ionized Calcium Urine WBC (Auto) Urine Creatinine Urine Total Protein Crossmatch 04/29/21 04/29/21 04/29/21 04:00 04:00 11:35 WBC 13.3 H RBC 3.12 L Hgb 8.3 L Hct 26.2 L MCH 27 L RDW 16.3 H Plt Count 132 L Seg Neuts % (Manual) Lymphocytes % (Manual) Nucleated RBC % Seg Neutrophils # Man Lymphocytes # (Manual) PT ABG pH POC ABG pCO2 POC ABG pO2 ABG pO2 ABG O2 Saturation ABG Base Excess ABG Hemoglobin ABG Oxyhemoglobin ABG Potassium ABG Chloride ABG Glucose Oxyhemoglobin Carboxyhemoglobin Sodium Potassium Chloride Carbon Dioxide BUN 63 H Creatinine 3.4 H Glucose 249 H POC Glucose 320 H Hemoglobin A1c Lactic Acid Calcium 8.2 L Phosphorus Magnesium Transferrin AST 61 H ALT 71 H Alkaline Phosphatase 170 H Total Creatine Kinase CK-MB (CK-2) Serum Total Protein Total Protein 5.1 L Albumin 1.6 L Rnvzt-4-Amfnkxguk Fosgt-7-Gserpoalr Gamma Globulins PEP Interpretation HDL Cholesterol TSH Arterial Blood Glucose Arterial Blood Ionized Calcium Urine WBC (Auto) Urine Creatinine Urine Total Protein Crossmatch 04/29/21 04/29/21 04/29/21 13:30 16:01 21:58 WBC RBC Hgb Hct MCH RDW Plt Count Seg Neuts % (Manual) Lymphocytes % (Manual) Nucleated RBC % Seg Neutrophils # Man Lymphocytes # (Manual) PT ABG pH POC ABG pCO2 POC ABG pO2 ABG pO2 ABG O2 Saturation ABG Base Excess ABG Hemoglobin ABG Oxyhemoglobin ABG Potassium ABG Chloride ABG Glucose Oxyhemoglobin Carboxyhemoglobin Sodium Potassium Chloride Carbon Dioxide BUN Creatinine Glucose POC Glucose 297 H 260 H Hemoglobin A1c Lactic Acid Calcium Phosphorus Magnesium Transferrin AST ALT Alkaline Phosphatase Total Creatine Kinase CK-MB (CK-2) Serum Total Protein Total Protein Albumin Pifit-6-Uvcxttaqz Vtzho-2-Sknolskpy Gamma Globulins PEP Interpretation HDL Cholesterol TSH Arterial Blood Glucose Arterial Blood Ionized Calcium Urine WBC (Auto) > 182.0 H Urine Creatinine Urine Total Protein Crossmatch 04/29/21 04/30/21 04/30/21 23:35 04:00 04:00 WBC 11.4 H RBC 3.27 L Hgb 8.7 L Hct 27.5 L MCH 27 L RDW 16.6 H Plt Count Seg Neuts % (Manual) Lymphocytes % (Manual) Nucleated RBC % Seg Neutrophils # Man Lymphocytes # (Manual) PT ABG pH POC ABG pCO2 POC ABG pO2 ABG pO2 ABG O2 Saturation ABG Base Excess ABG Hemoglobin ABG Oxyhemoglobin ABG Potassium ABG Chloride ABG Glucose Oxyhemoglobin Carboxyhemoglobin Sodium Potassium 3.1 L Chloride Carbon Dioxide BUN 79 H Creatinine 3.9 H Glucose 275 H POC Glucose 254 H Hemoglobin A1c Lactic Acid Calcium Phosphorus 5.60 H D Magnesium Transferrin AST ALT Alkaline Phosphatase Total Creatine Kinase CK-MB (CK-2) Serum Total Protein Total Protein Albumin Twusl-0-Sqckxcbls Unoos-0-Pgxgqezac Gamma Globulins PEP Interpretation HDL Cholesterol TSH Arterial Blood Glucose Arterial Blood Ionized Calcium Urine WBC (Auto) Urine Creatinine Urine Total Protein Crossmatch 04/30/21 04/30/21 04/30/21 05:17 05:31 12:31 WBC RBC Hgb Hct MCH RDW Plt Count Seg Neuts % (Manual) Lymphocytes % (Manual) Nucleated RBC % Seg Neutrophils # Man Lymphocytes # (Manual) PT ABG pH 7.452 H POC ABG pCO2 30.5 L POC ABG pO2 54.5 L ABG pO2 ABG O2 Saturation ABG Base Excess ABG Hemoglobin 10.1 L ABG Oxyhemoglobin 87.4 L ABG Potassium 2.9 L ABG Chloride ABG Glucose 305 H Oxyhemoglobin Carboxyhemoglobin Sodium Potassium Chloride Carbon Dioxide BUN Creatinine Glucose POC Glucose 267 H 259 H Hemoglobin A1c Lactic Acid Calcium Phosphorus Magnesium Transferrin AST ALT Alkaline Phosphatase Total Creatine Kinase CK-MB (CK-2) Serum Total Protein Total Protein Albumin Sjhvs-6-Gxlpwaptv Kigmq-5-Pfnjndfip Gamma Globulins PEP Interpretation HDL Cholesterol TSH Arterial Blood Glucose 305 H Arterial Blood Ionized Calcium Urine WBC (Auto) Urine Creatinine Urine Total Protein Crossmatch 04/30/21 04/30/21 05/01/21 17:50 22:24 00:09 WBC RBC Hgb Hct MCH RDW Plt Count Seg Neuts % (Manual) Lymphocytes % (Manual) Nucleated RBC % Seg Neutrophils # Man Lymphocytes # (Manual) PT ABG pH POC ABG pCO2 POC ABG pO2 ABG pO2 ABG O2 Saturation ABG Base Excess ABG Hemoglobin ABG Oxyhemoglobin ABG Potassium ABG Chloride ABG Glucose Oxyhemoglobin Carboxyhemoglobin Sodium Potassium Chloride Carbon Dioxide BUN Creatinine Glucose POC Glucose 161 H 146 H 149 H Hemoglobin A1c Lactic Acid Calcium Phosphorus Magnesium Transferrin AST ALT Alkaline Phosphatase Total Creatine Kinase CK-MB (CK-2) Serum Total Protein Total Protein Albumin Sumjp-1-Jpjilmtct Nnuab-0-Bqkgjbtyz Gamma Globulins PEP Interpretation HDL Cholesterol TSH Arterial Blood Glucose Arterial Blood Ionized Calcium Urine WBC (Auto) Urine Creatinine Urine Total Protein Crossmatch 05/01/21 05/01/21 05/01/21 03:30 04:00 04:00 WBC 12.0 H RBC 3.08 L Hgb 8.1 L Hct 25.6 L MCH 26 L RDW 16.3 H Plt Count Seg Neuts % (Manual) Lymphocytes % (Manual) Nucleated RBC % Seg Neutrophils # Man Lymphocytes # (Manual) PT ABG pH 7.493 H POC ABG pCO2 POC ABG pO2 ABG pO2 ABG O2 Saturation ABG Base Excess ABG Hemoglobin 25.0 H ABG Oxyhemoglobin ABG Potassium ABG Chloride ABG Glucose 167 H Oxyhemoglobin Carboxyhemoglobin 0.4 L Sodium Potassium 3.5 L Chloride Carbon Dioxide BUN 62 H Creatinine 3.3 H Glucose 179 H POC Glucose Hemoglobin A1c Lactic Acid Calcium 8.3 L Phosphorus Magnesium Transferrin AST ALT Alkaline Phosphatase Total Creatine Kinase CK-MB (CK-2) Serum Total Protein Total Protein Albumin Mnine-7-Rziatjcab Yyxnl-7-Vlakyzwfw Gamma Globulins PEP Interpretation HDL Cholesterol TSH Arterial Blood Glucose 167 H Arterial Blood Ionized Calcium Urine WBC (Auto) Urine Creatinine Urine Total Protein Crossmatch 05/01/21 05/01/21 05/01/21 05:48 11:49 16:24 WBC RBC Hgb Hct MCH RDW Plt Count Seg Neuts % (Manual) Lymphocytes % (Manual) Nucleated RBC % Seg Neutrophils # Man Lymphocytes # (Manual) PT ABG pH POC ABG pCO2 POC ABG pO2 ABG pO2 ABG O2 Saturation ABG Base Excess ABG Hemoglobin ABG Oxyhemoglobin ABG Potassium ABG Chloride ABG Glucose Oxyhemoglobin Carboxyhemoglobin Sodium Potassium Chloride Carbon Dioxide BUN Creatinine Glucose POC Glucose 197 H 167 H 157 H Hemoglobin A1c Lactic Acid Calcium Phosphorus Magnesium Transferrin AST ALT Alkaline Phosphatase Total Creatine Kinase CK-MB (CK-2) Serum Total Protein Total Protein Albumin Kypmy-0-Qpsvzsldz Hnuwr-8-Rnutvrapq Gamma Globulins PEP Interpretation HDL Cholesterol TSH Arterial Blood Glucose Arterial Blood Ionized Calcium Urine WBC (Auto) Urine Creatinine Urine Total Protein Crossmatch 05/01/21 05/02/21 05/02/21 23:25 04:00 04:00 WBC 14.2 H RBC 2.61 L Hgb 6.9 L Hct 22.1 L MCH 27 L RDW 16.1 H Plt Count Seg Neuts % (Manual) Lymphocytes % (Manual) Nucleated RBC % Seg Neutrophils # Man Lymphocytes # (Manual) PT ABG pH POC ABG pCO2 POC ABG pO2 ABG pO2 ABG O2 Saturation ABG Base Excess ABG Hemoglobin ABG Oxyhemoglobin ABG Potassium ABG Chloride ABG Glucose Oxyhemoglobin Carboxyhemoglobin Sodium Potassium Chloride Carbon Dioxide BUN 49 H Creatinine 2.8 H Glucose 117 H POC Glucose 147 H Hemoglobin A1c Lactic Acid Calcium Phosphorus Magnesium Transferrin AST ALT Alkaline Phosphatase Total Creatine Kinase CK-MB (CK-2) Serum Total Protein Total Protein Albumin Lhttk-3-Hlwvgpprq Pthmg-9-Sgwoeqzgh Gamma Globulins PEP Interpretation HDL Cholesterol TSH Arterial Blood Glucose Arterial Blood Ionized Calcium Urine WBC (Auto) Urine Creatinine Urine Total Protein Crossmatch 05/02/21 05/02/21 05/02/21 04:34 05:23 12:00 WBC RBC Hgb Hct MCH RDW Plt Count Seg Neuts % (Manual) Lymphocytes % (Manual) Nucleated RBC % Seg Neutrophils # Man Lymphocytes # (Manual) PT ABG pH 7.487 H POC ABG pCO2 POC ABG pO2 78.6 L ABG pO2 ABG O2 Saturation ABG Base Excess ABG Hemoglobin 11.5 L ABG Oxyhemoglobin ABG Potassium ABG Chloride ABG Glucose 122 H Oxyhemoglobin Carboxyhemoglobin Sodium Potassium Chloride Carbon Dioxide BUN Creatinine Glucose POC Glucose 119 H Hemoglobin A1c Lactic Acid Calcium Phosphorus Magnesium Transferrin AST ALT Alkaline Phosphatase Total Creatine Kinase CK-MB (CK-2) Serum Total Protein Total Protein Albumin Jqlhu-2-Tzpqmxulu Roiau-9-Pzkporukw Gamma Globulins PEP Interpretation HDL Cholesterol TSH Arterial Blood Glucose 122 H Arterial Blood Ionized Calcium Urine WBC (Auto) Urine Creatinine Urine Total Protein Crossmatch See Detail 05/02/21 05/02/21 05/02/21 12:04 17:29 23:36 WBC RBC Hgb Hct MCH RDW Plt Count Seg Neuts % (Manual) Lymphocytes % (Manual) Nucleated RBC % Seg Neutrophils # Man Lymphocytes # (Manual) PT ABG pH POC ABG pCO2 POC ABG pO2 ABG pO2 ABG O2 Saturation ABG Base Excess ABG Hemoglobin ABG Oxyhemoglobin ABG Potassium ABG Chloride ABG Glucose Oxyhemoglobin Carboxyhemoglobin Sodium Potassium Chloride Carbon Dioxide BUN Creatinine Glucose POC Glucose 115 H 120 H 130 H Hemoglobin A1c Lactic Acid Calcium Phosphorus Magnesium Transferrin AST ALT Alkaline Phosphatase Total Creatine Kinase CK-MB (CK-2) Serum Total Protein Total Protein Albumin Mtsyk-8-Qhtuodzbx Njzfg-5-Bpzyvarwl Gamma Globulins PEP Interpretation HDL Cholesterol TSH Arterial Blood Glucose Arterial Blood Ionized Calcium Urine WBC (Auto) Urine Creatinine Urine Total Protein Crossmatch 05/03/21 05/03/21 05/03/21 04:00 04:00 17:26 WBC 13.9 H RBC 3.22 L Hgb 8.7 L Hct 27.4 L MCH 27 L RDW 15.8 H Plt Count Seg Neuts % (Manual) Lymphocytes % (Manual) Nucleated RBC % Seg Neutrophils # Man Lymphocytes # (Manual) PT ABG pH POC ABG pCO2 POC ABG pO2 ABG pO2 ABG O2 Saturation ABG Base Excess ABG Hemoglobin ABG Oxyhemoglobin ABG Potassium ABG Chloride ABG Glucose Oxyhemoglobin Carboxyhemoglobin Sodium 146 H Potassium 3.5 L Chloride 107.5 H Carbon Dioxide BUN 40 H Creatinine 2.5 H Glucose 104 H POC Glucose 123 H Hemoglobin A1c Lactic Acid Calcium Phosphorus Magnesium Transferrin AST 53 H ALT Alkaline Phosphatase 149 H Total Creatine Kinase CK-MB (CK-2) Serum Total Protein Total Protein 5.2 L Albumin 1.5 L Cbdvs-8-Hbumfqjrn Cjzyu-1-Hjgvkimxu Gamma Globulins PEP Interpretation HDL Cholesterol TSH Arterial Blood Glucose Arterial Blood Ionized Calcium Urine WBC (Auto) Urine Creatinine Urine Total Protein Crossmatch 05/04/21 05/04/21 05/04/21 01:24 04:48 04:48 WBC 14.3 H RBC 3.14 L Hgb 8.5 L Hct 26.3 L MCH 27 L RDW 15.8 H Plt Count Seg Neuts % (Manual) Lymphocytes % (Manual) Nucleated RBC % Seg Neutrophils # Man Lymphocytes # (Manual) PT ABG pH POC ABG pCO2 POC ABG pO2 ABG pO2 ABG O2 Saturation ABG Base Excess ABG Hemoglobin ABG Oxyhemoglobin ABG Potassium ABG Chloride ABG Glucose Oxyhemoglobin Carboxyhemoglobin Sodium Potassium 3.5 L Chloride Carbon Dioxide BUN 58 H Creatinine 3.4 H Glucose 168 H POC Glucose 146 H Hemoglobin A1c Lactic Acid Calcium Phosphorus 5.30 H Magnesium Transferrin AST ALT Alkaline Phosphatase Total Creatine Kinase CK-MB (CK-2) Serum Total Protein Total Protein Albumin Jhmvv-1-Ehltymyfi Yrxmb-4-Rsahdivki Gamma Globulins PEP Interpretation HDL Cholesterol 24 L TSH Arterial Blood Glucose Arterial Blood Ionized Calcium Urine WBC (Auto) Urine Creatinine Urine Total Protein Crossmatch 05/04/21 05/04/21 05:15 11:24 WBC RBC Hgb Hct MCH RDW Plt Count Seg Neuts % (Manual) Lymphocytes % (Manual) Nucleated RBC % Seg Neutrophils # Man Lymphocytes # (Manual) PT ABG pH POC ABG pCO2 POC ABG pO2 ABG pO2 ABG O2 Saturation ABG Base Excess ABG Hemoglobin ABG Oxyhemoglobin ABG Potassium ABG Chloride ABG Glucose Oxyhemoglobin Carboxyhemoglobin Sodium Potassium Chloride Carbon Dioxide BUN Creatinine Glucose POC Glucose 162 H 145 H Hemoglobin A1c Lactic Acid Calcium Phosphorus Magnesium Transferrin AST ALT Alkaline Phosphatase Total Creatine Kinase CK-MB (CK-2) Serum Total Protein Total Protein Albumin Ynqnk-7-Oyggamqjh Rwrdn-4-Vrmypzoce Gamma Globulins PEP Interpretation HDL Cholesterol TSH Arterial Blood Glucose Arterial Blood Ionized Calcium Urine WBC (Auto) Urine Creatinine Urine Total Protein Crossmatch
--- NOTE | 2021-05-04 11:48 | Progress Note ---
Assessment and Plan Cultures: 04/21/2021 blood culture: No growth 04/21/2021 COVID-19 PCR: Negative 04/26/2021 sputum culture: Roselyn nonalbicans 04/29/2021 tracheal aspirate culture: Moderate growth of usual respiratory stanley 04/29/2021 blood culture: No growth 05/02/2021 urine culture: in process A/P: 80-year-old female who is a retirement resident, with hypothyroidism, GERD, hyperlipidemia, schizophrenia, dementia was admitted on 04/20/2021 after being found unresponsive by the staff: #Septic shock: Likely from pneumonia and UTI. 04/29/2021 UA showed significant pyuria. Luther was changed. #Acute respiratory failure: On the vent #Acute renal failure: Renally adjust antibiotics. On dialysis. #Acute metabolic encephalopathy: Initially related to severe hyponatremia which peaked at sodium of 179. Recs: -f/u urine culture -continue IV meropenem, renally adjusted, D3 Juanita Darling MD, FACP, [facility] ([facility] O: [phone] F: [phone] Subjective Date of service: 05/04/21 Principal diagnosis: Acute respiratory failure Interval history: Low-grade fever yesterday, none today. Remains on the vent. Back on low-dose pressors. Objective - Exam Narrative Exam: Physical Exam: Constitutional: sedated, intubated, on the vent Head, Ears, Nose: Normocephalic, atraumatic. External ears, nose normal Eyes: Conjunctivae/corneas clear. No icterus. No ptosis. Neck: intubated Oral: intubated Cardiovascular: S1, S2 + Respiratory: AE fair bilaterally and equal GI: Soft, bowel sounds + Musculoskeletal: Anasarca + Skin: No rash or abscess Hem/Lymphatic: No palpable cervical or supraclavicular nodes. No lymphangitis Psych: no agitation Neurological: sedated, intubated, on the vent, exam limited - Constitutional Vitals: Vital Signs Temp Pulse Resp BP Pulse Ox 98.2 F 74 14 139/59 97 05/04/21 07:46 05/04/21 11:00 05/04/21 11:00 05/04/21 11:00 05/04/21 11:00 Temperature -Last 24 Hours Temperature 98.2 F Temperature 99.0 F Temperature 99.4 F Temperature 99 F Temperature 99.8 F Temperature 100.6 F - Labs CBC & Chem 7: 05/04/21 04:48 05/04/21 04:48 Labs: Abnormal lab results 05/03/21 05/04/21 05/04/21 Range/Units 17:26 01:24 04:48 WBC 14.3 H (4.5-11.0) K/mm3 RBC 3.14 L (3.65-5.03) M/mm3 Hgb 8.5 L (10.1-14.3) gm/dl Hct 26.3 L (30.3-42.9) % MCH 27 L (28-32) pg RDW 15.8 H (13.2-15.2) % Potassium (3.6-5.0) mmol/L BUN (7-17) mg/dL Creatinine (0.6-1.2) mg/dL Glucose (65-100) mg/dL POC Glucose 123 H 146 H (70-105) mg/dL Phosphorus (2.5-4.5) mg/dL HDL Cholesterol (40-59) mg/dL 05/04/21 05/04/21 05/04/21 Range/Units 04:48 05:15 11:24 WBC (4.5-11.0) K/mm3 RBC (3.65-5.03) M/mm3 Hgb (10.1-14.3) gm/dl Hct (30.3-42.9) % MCH (28-32) pg RDW (13.2-15.2) % Potassium 3.5 L (3.6-5.0) mmol/L BUN 58 H (7-17) mg/dL Creatinine 3.4 H (0.6-1.2) mg/dL Glucose 168 H (65-100) mg/dL POC Glucose 162 H 145 H (70-105) mg/dL Phosphorus 5.30 H (2.5-4.5) mg/dL HDL Cholesterol 24 L (40-59) mg/dL
[2021-05-04] MEDS ORDERED: SODIUM CHLORIDE 0.9% 1000 ML 2,000 ML ONE (13:34)
[2021-05-04] MEDS: MIDODRINE 5 MG TAB PO SCH ×2 (14:45→21:33)
--- NOTE | 2021-05-04 15:00 | Progress Note ---
Assessment and Plan 80 y/o female with altered mental state, severe electrolyte imbalance with presumptive acute renal failure and hypothermia. 05/04/21: follow up MRA when done. [place] pending. HD per renal. Daily PSV trials as tolerated. Poor prognosis given MRI findings and lack of responsiveness off sedation. 05/03/21: Follow up Neurology recs for today. Attempt PSV trials. HD on yesterday. Very very guarded prognosis. 05/02/21: MRI today. Repeat cultures. HD per renal. Once MRI results back will discuss with Neurosurgery to see if anything further should be done. Abx per ID. Overall prognosis is very guarded to poor. 04/29/21: Will reach out to neuro after 24-48 hours post spinal tap pending any change in mentation. If improvement, may need to consider shunt placement. If not, not sure that there is anything they can offer. if they still want MRI, then can obtain. Now spiking temps. Blood cultures and UA. Given time frame in Hospital will place on Vanc and Cefepime. Guarded prognosis. HD per renal. Given anasarca, will ask renal about trying to remove volume. 04/28/21: Will discuss with renal about HD again today. MRI vs LP (large amount). Coags are ok. Will attempt to get at least one of these done today. Patient is still on 80% but sat is 100. Will ask [employer] about placing ART line today. Wean FiO2 as tolerated. Guarded prognosis. 04/27/21: HD today per renal. Vascath placed and awaiting CXR for conformation of good placement (done and good). Vent weaning as tolerated for sats >88%. ABG in the AM. Will check Coags in the am and hopeful these are stable. Platelets need to above 50K. Would like to do large volume spinal tap to see if this helps with mentation. Will also obtain MRI once oxygen requirement improves. 04/26/21: WIll electively intubate and then obtain MRI. Pending MRI results, w ill likely order large volume spinal tap to assess if NPH is a factor or not. Guarded prognosis. Electrolytes are improving. 04/25/21: Continue to follow renal recs. Will reach out to POA either today or tomorrow for further updates. Follow up renal recs. Monitor electrolytes and renal function. Guarded prognosis. 1. Neuro-reached out to neuro surgery, placed consult in regards to CT findings 2. Renal-appreciate help and recs, will follow IV hydration recommendations 3. Blood cultures. Urine was negative 4. Jorge Hugger for temp Guarded prognosis CCT 31 minutes. Subjective Date of service: 05/04/21 Principal diagnosis: Acute respiratory failure Interval history: No acute events. Objective Vital Signs - 12hr 05/04/21 05/04/21 05/04/21 03:15 03:30 03:45 Temperature Pulse Rate 85 84 81 Pulse Rate [ From Monitor] Respiratory 14 15 14 Rate Blood Pressure 114/47 89/42 97/46 O2 Sat by Pulse 98 98 99 Oximetry O2 Sat by Pulse Oximetry [ Anterior Bilateral Throughout] O2 Sat by Pulse Oximetry [ Anterior Right Upper Lobe] 05/04/21 05/04/21 05/04/21 04:00 04:01 04:15 Temperature 99.0 F Pulse Rate 78 76 77 Pulse Rate [ 78 From Monitor] Respiratory 18 14 14 Rate Blood Pressure 139/60 109/48 O2 Sat by Pulse 98 100 98 Oximetry O2 Sat by Pulse Oximetry [ Anterior Bilateral Throughout] O2 Sat by Pulse Oximetry [ Anterior Right Upper Lobe] 05/04/21 05/04/21 05/04/21 04:18 04:30 04:45 Temperature Pulse Rate 76 79 77 Pulse Rate [ From Monitor] Respiratory 14 15 Rate Blood Pressure 109/48 113/54 110/47 O2 Sat by Pulse 98 99 98 Oximetry O2 Sat by Pulse Oximetry [ Anterior Bilateral Throughout] O2 Sat by Pulse Oximetry [ Anterior Right Upper Lobe] 05/04/21 05/04/21 05/04/21 05:00 05:15 05:30 Temperature Pulse Rate 80 85 83 Pulse Rate [ From Monitor] Respiratory 14 17 17 Rate Blood Pressure 118/50 126/69 136/64 O2 Sat by Pulse 98 99 98 Oximetry O2 Sat by Pulse Oximetry [ Anterior Bilateral Throughout] O2 Sat by Pulse Oximetry [ Anterior Right Upper Lobe] 05/04/21 05/04/21 05/04/21 05:45 06:00 06:15 Temperature Pulse Rate 80 91 H 82 Pulse Rate [ From Monitor] Respiratory 14 23 15 Rate Blood Pressure 145/57 124/61 124/61 O2 Sat by Pulse 99 98 98 Oximetry O2 Sat by Pulse Oximetry [ Anterior Bilateral Throughout] O2 Sat by Pulse Oximetry [ Anterior Right Upper Lobe] 05/04/21 05/04/21 05/04/21 06:30 06:45 07:00 Temperature Pulse Rate 81 79 73 Pulse Rate [ From Monitor] Respiratory 15 15 14 Rate Blood Pressure 91/40 101/38 121/54 O2 Sat by Pulse 99 99 99 Oximetry O2 Sat by Pulse Oximetry [ Anterior Bilateral Throughout] O2 Sat by Pulse Oximetry [ Anterior Right Upper Lobe] 05/04/21 05/04/21 05/04/21 07:15 07:30 07:45 Temperature Pulse Rate 74 74 71 Pulse Rate [ From Monitor] Respiratory 16 16 14 Rate Blood Pressure 113/51 112/48 115/52 O2 Sat by Pulse 100 100 100 Oximetry O2 Sat by Pulse Oximetry [ Anterior Bilateral Throughout] O2 Sat by Pulse Oximetry [ Anterior Right Upper Lobe] 05/04/21 05/04/21 05/04/21 07:46 08:00 08:15 Temperature 98.2 F Pulse Rate 69 71 Pulse Rate [ 69 From Monitor] Respiratory 14 14 Rate Blood Pressure 108/46 117/46 O2 Sat by Pulse 100 100 Oximetry O2 Sat by Pulse Oximetry [ Anterior Bilateral Throughout] O2 Sat by Pulse Oximetry [ Anterior Right Upper Lobe] 05/04/21 05/04/21 05/04/21 08:31 08:36 08:45 Temperature Pulse Rate 77 78 74 Pulse Rate [ From Monitor] Respiratory 16 14 Rate Blood Pressure 135/67 135/67 130/60 O2 Sat by Pulse 100 100 98 Oximetry O2 Sat by Pulse Oximetry [ Anterior Bilateral Throughout] O2 Sat by Pulse Oximetry [ Anterior Right Upper Lobe] 05/04/21 05/04/21 05/04/21 09:00 09:15 09:30 Temperature Pulse Rate 76 72 70 Pulse Rate [ From Monitor] Respiratory 14 14 13 Rate Blood Pressure 111/52 114/49 111/50 O2 Sat by Pulse 95 96 97 Oximetry O2 Sat by Pulse Oximetry [ Anterior Bilateral Throughout] O2 Sat by Pulse Oximetry [ Anterior Right Upper Lobe] 05/04/21 05/04/21 05/04/21 09:45 10:01 10:15 Temperature Pulse Rate 79 79 81 Pulse Rate [ From Monitor] Respiratory 17 17 20 Rate Blood Pressure 108/57 133/68 138/62 O2 Sat by Pulse 97 97 98 Oximetry O2 Sat by Pulse Oximetry [ Anterior Bilateral Throughout] O2 Sat by Pulse Oximetry [ Anterior Right Upper Lobe] 05/04/21 05/04/21 05/04/21 10:30 10:45 11:00 Temperature Pulse Rate 72 78 74 Pulse Rate [ From Monitor] Respiratory 14 19 14 Rate Blood Pressure 133/59 149/78 139/59 O2 Sat by Pulse 97 97 97 Oximetry O2 Sat by Pulse Oximetry [ Anterior Bilateral Throughout] O2 Sat by Pulse Oximetry [ Anterior Right Upper Lobe] 05/04/21 05/04/21 05/04/21 11:15 11:30 11:45 Temperature 98.7 F Pulse Rate 72 90 84 Pulse Rate [ From Monitor] Respiratory 20 Rate Blood Pressure 123/55 128/68 128/66 O2 Sat by Pulse Oximetry O2 Sat by Pulse 95 Oximetry [ Anterior Bilateral Throughout] O2 Sat by Pulse 98 Oximetry [ Anterior Right Upper Lobe] 05/04/21 05/04/21 05/04/21 12:00 12:13 12:15 Temperature 97.8 F Pulse Rate 81 81 87 Pulse Rate [ From Monitor] Respiratory Rate Blood Pressure 138/66 138/66 153/67 O2 Sat by Pulse 97 Oximetry O2 Sat by Pulse Oximetry [ Anterior Bilateral Throughout] O2 Sat by Pulse Oximetry [ Anterior Right Upper Lobe] 05/04/21 05/04/21 05/04/21 12:30 12:45 13:00 Temperature Pulse Rate 85 91 H 77 Pulse Rate [ From Monitor] Respiratory Rate Blood Pressure 128/68 128/66 122/74 O2 Sat by Pulse Oximetry O2 Sat by Pulse Oximetry [ Anterior Bilateral Throughout] O2 Sat by Pulse Oximetry [ Anterior Right Upper Lobe] 05/04/21 05/04/21 05/04/21 13:15 13:30 13:45 Temperature Pulse Rate 85 98 H 92 H Pulse Rate [ From Monitor] Respiratory Rate Blood Pressure 110/68 102/69 119/69 O2 Sat by Pulse Oximetry O2 Sat by Pulse Oximetry [ Anterior Bilateral Throughout] O2 Sat by Pulse Oximetry [ Anterior Right Upper Lobe] 05/04/21 05/04/21 05/04/21 14:00 14:15 14:30 Temperature Pulse Rate 97 H 100 H 89 Pulse Rate [ From Monitor] Respiratory Rate Blood Pressure 127/53 114/82 140/74 O2 Sat by Pulse Oximetry O2 Sat by Pulse Oximetry [ Anterior Bilateral Throughout] O2 Sat by Pulse Oximetry [ Anterior Right Upper Lobe] 05/04/21 14:40 Temperature 98.9 F Pulse Rate 81 Pulse Rate [ From Monitor] Respiratory 21 Rate Blood Pressure 138/66 O2 Sat by Pulse Oximetry O2 Sat by Pulse 30 L Oximetry [ Anterior Bilateral Throughout] O2 Sat by Pulse 97 Oximetry [ Anterior Right Upper Lobe] Constitutional: other (critically ill, somnolent, on vent) Eyes: non-icteric ENT: oropharynx dry Effort: other (tachypneic but not labored) Ascultation: Bilateral: clear Cardiovascular: regular rate and rhythm Gastrointestinal: normoactive bowel sounds Integumentary: normal Extremities: no cyanosis, no edema, pink and warm Neurologic: unable to assess Psychiatric: other (unable to assess) CBC and BMP: 05/04/21 04:48 05/05/21 04:00 ABG, PT/INR, D-dimer: ABG ABG pH 7.487 (7.320-7.450) H 05/02/21 04:34 POC ABG pCO2 35.3 mmHg (32.0-48.0) 05/02/21 04:34 ABG pCO2 31.6 mm Hg 04/21/21 15:47 POC ABG pO2 78.6 mmHg (83-108) L 05/02/21 04:34 ABG pO2 168.1 mm Hg (80.0-90.0) H 04/21/21 15:47 POC ABG HCO3 26.1 05/02/21 04:34 ABG O2 Saturation 96.0 (0-100) 05/02/21 04:34 PT/INR, D-dimer PT 15.3 Sec. (12.2-14.9) H 04/28/21 05:00 INR 1.09 (0.87-1.13) 04/28/21 05:00 Abnormal lab findings: Abnormal Labs 04/20/21 04/20/21 04/20/21 17:10 17:10 17:10 WBC 17.4 H RBC 5.19 H Hgb Hct 46.8 H MCH 27 L RDW 17.2 H Plt Count Seg Neuts % (Manual) 98.0 H Lymphocytes % (Manual) 2.0 L Nucleated RBC % 1.0 H Seg Neutrophils # Man 17.1 H Lymphocytes # (Manual) 0.3 L PT ABG pH POC ABG pCO2 POC ABG pO2 ABG pO2 ABG O2 Saturation ABG Base Excess ABG Hemoglobin ABG Oxyhemoglobin ABG Potassium ABG Chloride ABG Glucose Oxyhemoglobin Carboxyhemoglobin Sodium 173 H* Potassium Chloride 132.9 H Carbon Dioxide 17 L BUN 120 H Creatinine 4.2 H Glucose 762 H* POC Glucose Hemoglobin A1c Lactic Acid Calcium Phosphorus Magnesium 3.80 H Transferrin AST 72 H ALT 63 H Alkaline Phosphatase 148 H Total Creatine Kinase 3697 H CK-MB (CK-2) 36.0 H Serum Total Protein Total Protein Albumin 2.2 L Xcngz-2-Uqunofbbe Xwrjv-2-Cepardluy Gamma Globulins PEP Interpretation HDL Cholesterol TSH Arterial Blood Glucose Arterial Blood Ionized Calcium Urine WBC (Auto) Urine Creatinine Urine Total Protein Crossmatch 04/20/21 04/20/21 04/20/21 17:10 17:10 18:55 WBC RBC Hgb Hct MCH RDW Plt Count Seg Neuts % (Manual) Lymphocytes % (Manual) Nucleated RBC % Seg Neutrophils # Man Lymphocytes # (Manual) PT ABG pH POC ABG pCO2 POC ABG pO2 ABG pO2 ABG O2 Saturation ABG Base Excess ABG Hemoglobin ABG Oxyhemoglobin ABG Potassium ABG Chloride ABG Glucose Oxyhemoglobin Carboxyhemoglobin Sodium Potassium Chloride Carbon Dioxide BUN Creatinine Glucose POC Glucose 574 H Hemoglobin A1c Lactic Acid 2.60 H* Calcium Phosphorus Magnesium Transferrin AST ALT Alkaline Phosphatase Total Creatine Kinase CK-MB (CK-2) Serum Total Protein Total Protein Albumin Iwxgb-0-Lnjbmtryg Zxlxp-2-Imunirniq Gamma Globulins PEP Interpretation HDL Cholesterol TSH 6.040 H Arterial Blood Glucose Arterial Blood Ionized Calcium Urine WBC (Auto) Urine Creatinine Urine Total Protein Crossmatch 04/20/21 04/20/21 04/21/21 22:58 22:58 00:14 WBC RBC Hgb Hct MCH RDW Plt Count Seg Neuts % (Manual) Lymphocytes % (Manual) Nucleated RBC % Seg Neutrophils # Man Lymphocytes # (Manual) PT ABG pH POC ABG pCO2 POC ABG pO2 ABG pO2 ABG O2 Saturation ABG Base Excess ABG Hemoglobin ABG Oxyhemoglobin ABG Potassium ABG Chloride ABG Glucose Oxyhemoglobin Carboxyhemoglobin Sodium 172 H* Potassium 3.2 L Chloride 134.2 H Carbon Dioxide 17 L BUN 112 H Creatinine 3.8 H Glucose 803 H* POC Glucose > 600 H Hemoglobin A1c Lactic Acid Calcium 8.3 L Phosphorus Magnesium 3.50 H Transferrin AST ALT Alkaline Phosphatase Total Creatine Kinase CK-MB (CK-2) Serum Total Protein Total Protein Albumin Wwnzt-1-Nnxolwyhi Yzqgr-1-Fcrgnwhgs Gamma Globulins PEP Interpretation HDL Cholesterol TSH Arterial Blood Glucose Arterial Blood Ionized Calcium Urine WBC (Auto) Urine Creatinine Urine Total Protein Crossmatch 04/21/21 04/21/21 04/21/21 00:22 02:01 03:11 WBC RBC Hgb Hct MCH RDW Plt Count Seg Neuts % (Manual) Lymphocytes % (Manual) Nucleated RBC % Seg Neutrophils # Man Lymphocytes # (Manual) PT ABG pH POC ABG pCO2 POC ABG pO2 ABG pO2 ABG O2 Saturation ABG Base Excess ABG Hemoglobin ABG Oxyhemoglobin ABG Potassium ABG Chloride ABG Glucose Oxyhemoglobin Carboxyhemoglobin Sodium 176 H* 175 H* Potassium 2.9 L* 3.0 L Chloride 139.9 H 136.2 H Carbon Dioxide 17 L 19 L BUN 113 H 112 H Creatinine 3.9 H 3.6 H Glucose 729 H* 582 H* POC Glucose 404 H Hemoglobin A1c Lactic Acid Calcium Phosphorus Magnesium Transferrin AST ALT Alkaline Phosphatase Total Creatine Kinase CK-MB (CK-2) Serum Total Protein Total Protein Albumin Pknbu-6-Bwzgjtoxl Msaot-6-Nxfmbbzjd Gamma Globulins PEP Interpretation HDL Cholesterol TSH Arterial Blood Glucose Arterial Blood Ionized Calcium Urine WBC (Auto) Urine Creatinine Urine Total Protein Crossmatch 04/21/21 04/21/21 04/21/21 03:20 03:41 03:41 WBC 14.1 H RBC Hgb Hct MCH 27 L RDW 16.8 H Plt Count 114 L Seg Neuts % (Manual) 97.0 H Lymphocytes % (Manual) 3.0 L Nucleated RBC % 1.0 H Seg Neutrophils # Man 13.7 H Lymphocytes # (Manual) 0.4 L PT ABG pH POC ABG pCO2 POC ABG pO2 ABG pO2 52.3 L ABG O2 Saturation 84.5 L ABG Base Excess -2.9 L ABG Hemoglobin ABG Oxyhemoglobin ABG Potassium ABG Chloride ABG Glucose Oxyhemoglobin 82.9 L Carboxyhemoglobin Sodium 179 H* Potassium 2.9 L* Chloride 138.2 H Carbon Dioxide 20 L BUN 111 H Creatinine 3.7 H Glucose 465 H POC Glucose Hemoglobin A1c Lactic Acid Calcium Phosphorus Magnesium Transferrin AST 73 H ALT 61 H Alkaline Phosphatase 144 H Total Creatine Kinase CK-MB (CK-2) Serum Total Protein Total Protein Albumin 2.5 L Gyfbm-1-Uaxrzlkcl Gzige-1-Brmsmaecd Gamma Globulins PEP Interpretation HDL Cholesterol TSH Arterial Blood Glucose Arterial Blood Ionized Calcium Urine WBC (Auto) Urine Creatinine Urine Total Protein Crossmatch 04/21/21 04/21/21 04/21/21 04:24 05:45 06:47 WBC RBC Hgb Hct MCH RDW Plt Count Seg Neuts % (Manual) Lymphocytes % (Manual) Nucleated RBC % Seg Neutrophils # Man Lymphocytes # (Manual) PT ABG pH POC ABG pCO2 POC ABG pO2 ABG pO2 ABG O2 Saturation ABG Base Excess ABG Hemoglobin ABG Oxyhemoglobin ABG Potassium ABG Chloride ABG Glucose Oxyhemoglobin Carboxyhemoglobin Sodium Potassium Chloride Carbon Dioxide BUN Creatinine Glucose POC Glucose 353 H 280 H 260 H Hemoglobin A1c Lactic Acid Calcium Phosphorus Magnesium Transferrin AST ALT Alkaline Phosphatase Total Creatine Kinase CK-MB (CK-2) Serum Total Protein Total Protein Albumin Djdsj-4-Kpmhouedr Epwfp-9-Suwnrkoky Gamma Globulins PEP Interpretation HDL Cholesterol TSH Arterial Blood Glucose Arterial Blood Ionized Calcium Urine WBC (Auto) Urine Creatinine Urine Total Protein Crossmatch 04/21/21 04/21/21 04/21/21 08:01 11:11 12:51 WBC RBC Hgb Hct MCH RDW Plt Count Seg Neuts % (Manual) Lymphocytes % (Manual) Nucleated RBC % Seg Neutrophils # Man Lymphocytes # (Manual) PT ABG pH POC ABG pCO2 POC ABG pO2 ABG pO2 ABG O2 Saturation ABG Base Excess ABG Hemoglobin ABG Oxyhemoglobin ABG Potassium ABG Chloride ABG Glucose Oxyhemoglobin Carboxyhemoglobin Sodium Potassium Chloride Carbon Dioxide BUN Creatinine Glucose POC Glucose 68 L 146 H Hemoglobin A1c Lactic Acid Calcium Phosphorus Magnesium Transferrin AST ALT Alkaline Phosphatase Total Creatine Kinase CK-MB (CK-2) Serum Total Protein Total Protein Albumin Nowsk-2-Evgqjvhri Gjckf-2-Vjdakysyy Gamma Globulins PEP Interpretation HDL Cholesterol TSH Arterial Blood Glucose Arterial Blood Ionized Calcium Urine WBC (Auto) Urine Creatinine 44.3 H Urine Total Protein 12 H Crossmatch 04/21/21 04/21/21 04/21/21 13:41 14:40 15:47 WBC RBC Hgb Hct MCH RDW Plt Count Seg Neuts % (Manual) Lymphocytes % (Manual) Nucleated RBC % Seg Neutrophils # Man Lymphocytes # (Manual) PT ABG pH 7.275 L 7.486 H POC ABG pCO2 POC ABG pO2 63.4 L ABG pO2 168.1 H ABG O2 Saturation 99.1 H ABG Base Excess ABG Hemoglobin 8.4 L 8.9 L ABG Oxyhemoglobin 89.5 L ABG Potassium ABG Chloride 108.0 H ABG Glucose 404 H Oxyhemoglobin Carboxyhemoglobin Sodium Potassium Chloride Carbon Dioxide BUN Creatinine Glucose POC Glucose 186 H Hemoglobin A1c Lactic Acid Calcium Phosphorus Magnesium Transferrin AST ALT Alkaline Phosphatase Total Creatine Kinase CK-MB (CK-2) Serum Total Protein Total Protein Albumin Fbxol-2-Yymdvprqn Gxjak-5-Cbcxzebzd Gamma Globulins PEP Interpretation HDL Cholesterol TSH Arterial Blood Glucose 404 H Arterial Blood Ionized Calcium Urine WBC (Auto) Urine Creatinine Urine Total Protein Crossmatch 04/21/21 04/21/21 04/21/21 16:25 17:57 18:49 WBC RBC Hgb Hct MCH RDW Plt Count Seg Neuts % (Manual) Lymphocytes % (Manual) Nucleated RBC % Seg Neutrophils # Man Lymphocytes # (Manual) PT ABG pH POC ABG pCO2 POC ABG pO2 ABG pO2 ABG O2 Saturation ABG Base Excess ABG Hemoglobin ABG Oxyhemoglobin ABG Potassium ABG Chloride ABG Glucose Oxyhemoglobin Carboxyhemoglobin Sodium 174 H* Potassium 7.2 H* D Chloride 138.2 H Carbon Dioxide 21 L BUN 99 H Creatinine 4.0 H Glucose 157 H POC Glucose 172 H 143 H Hemoglobin A1c Lactic Acid Calcium Phosphorus Magnesium Transferrin AST 134 H ALT 71 H Alkaline Phosphatase 135 H Total Creatine Kinase 3504 H CK-MB (CK-2) Serum Total Protein Total Protein Albumin 2.2 L Hjksm-6-Jhtdgppfn Tnzid-5-Pbuxxvxpp Gamma Globulins PEP Interpretation HDL Cholesterol TSH Arterial Blood Glucose Arterial Blood Ionized Calcium Urine WBC (Auto) Urine Creatinine Urine Total Protein Crossmatch 04/21/21 04/21/21 04/21/21 19:10 20:26 20:53 WBC RBC Hgb Hct MCH RDW Plt Count Seg Neuts % (Manual) Lymphocytes % (Manual) Nucleated RBC % Seg Neutrophils # Man Lymphocytes # (Manual) PT ABG pH POC ABG pCO2 POC ABG pO2 ABG pO2 ABG O2 Saturation ABG Base Excess ABG Hemoglobin ABG Oxyhemoglobin ABG Potassium ABG Chloride ABG Glucose Oxyhemoglobin Carboxyhemoglobin Sodium Potassium Chloride Carbon Dioxide BUN Creatinine Glucose POC Glucose 126 H 190 H 116 H Hemoglobin A1c Lactic Acid Calcium Phosphorus Magnesium Transferrin AST ALT Alkaline Phosphatase Total Creatine Kinase CK-MB (CK-2) Serum Total Protein Total Protein Albumin Jobxz-8-Cmnnlcdhe Lpkac-9-Yuttwaoed Gamma Globulins PEP Interpretation HDL Cholesterol TSH Arterial Blood Glucose Arterial Blood Ionized Calcium Urine WBC (Auto) Urine Creatinine Urine Total Protein Crossmatch 04/21/21 04/21/21 04/21/21 21:52 22:55 23:00 WBC RBC Hgb Hct MCH RDW Plt Count Seg Neuts % (Manual) Lymphocytes % (Manual) Nucleated RBC % Seg Neutrophils # Man Lymphocytes # (Manual) PT ABG pH POC ABG pCO2 POC ABG pO2 ABG pO2 ABG O2 Saturation ABG Base Excess ABG Hemoglobin ABG Oxyhemoglobin ABG Potassium ABG Chloride ABG Glucose Oxyhemoglobin Carboxyhemoglobin Sodium 176 H* Potassium Chloride 140.0 H Carbon Dioxide 20 L BUN 98 H Creatinine 3.9 H Glucose 206 H POC Glucose 135 H 158 H Hemoglobin A1c Lactic Acid Calcium Phosphorus Magnesium Transferrin AST ALT Alkaline Phosphatase Total Creatine Kinase 3240 H CK-MB (CK-2) Serum Total Protein Total Protein Albumin Qxicb-4-Yshdfebou Atcsa-1-Mnfddvnmu Gamma Globulins PEP Interpretation HDL Cholesterol TSH Arterial Blood Glucose Arterial Blood Ionized Calcium Urine WBC (Auto) Urine Creatinine Urine Total Protein Crossmatch 04/22/21 04/22/21 04/22/21 00:01 00:39 00:58 WBC RBC Hgb Hct MCH RDW Plt Count Seg Neuts % (Manual) Lymphocytes % (Manual) Nucleated RBC % Seg Neutrophils # Man Lymphocytes # (Manual) PT ABG pH POC ABG pCO2 POC ABG pO2 ABG pO2 ABG O2 Saturation ABG Base Excess ABG Hemoglobin ABG Oxyhemoglobin ABG Potassium ABG Chloride ABG Glucose Oxyhemoglobin Carboxyhemoglobin Sodium 171 H* Potassium Chloride Carbon Dioxide BUN Creatinine Glucose POC Glucose 182 H 176 H Hemoglobin A1c Lactic Acid Calcium Phosphorus Magnesium Transferrin AST ALT Alkaline Phosphatase Total Creatine Kinase CK-MB (CK-2) Serum Total Protein Total Protein Albumin Cvrab-0-Wnlutdliy Ceddz-0-Rjleszgyb Gamma Globulins PEP Interpretation HDL Cholesterol TSH Arterial Blood Glucose Arterial Blood Ionized Calcium Urine WBC (Auto) Urine Creatinine Urine Total Protein Crossmatch 04/22/21 04/22/21 04/22/21 01:04 04:52 06:07 WBC 11.2 H RBC Hgb Hct 44.3 H MCH 27 L RDW 17.1 H Plt Count 86 L Seg Neuts % (Manual) 86.0 H Lymphocytes % (Manual) 13.0 L Nucleated RBC % Seg Neutrophils # Man 9.6 H Lymphocytes # (Manual) PT ABG pH POC ABG pCO2 POC ABG pO2 ABG pO2 ABG O2 Saturation ABG Base Excess ABG Hemoglobin ABG Oxyhemoglobin ABG Potassium ABG Chloride ABG Glucose Oxyhemoglobin Carboxyhemoglobin Sodium Potassium Chloride Carbon Dioxide BUN Creatinine Glucose POC Glucose 143 H 206 H Hemoglobin A1c Lactic Acid Calcium Phosphorus Magnesium Transferrin AST ALT Alkaline Phosphatase Total Creatine Kinase CK-MB (CK-2) Serum Total Protein Total Protein Albumin Wcdem-5-Dojdchagm Ipjof-5-Calikbsey Gamma Globulins PEP Interpretation HDL Cholesterol TSH Arterial Blood Glucose Arterial Blood Ionized Calcium Urine WBC (Auto) Urine Creatinine Urine Total Protein Crossmatch 04/22/21 04/22/21 04/22/21 06:09 07:18 08:59 WBC RBC Hgb Hct MCH RDW Plt Count Seg Neuts % (Manual) Lymphocytes % (Manual) Nucleated RBC % Seg Neutrophils # Man Lymphocytes # (Manual) PT ABG pH POC ABG pCO2 POC ABG pO2 ABG pO2 ABG O2 Saturation ABG Base Excess ABG Hemoglobin ABG Oxyhemoglobin ABG Potassium ABG Chloride ABG Glucose Oxyhemoglobin Carboxyhemoglobin Sodium Potassium Chloride Carbon Dioxide BUN Creatinine Glucose POC Glucose 163 H 158 H Hemoglobin A1c Lactic Acid Calcium Phosphorus Magnesium Transferrin AST ALT Alkaline Phosphatase Total Creatine Kinase 3105 H CK-MB (CK-2) Serum Total Protein Total Protein Albumin Srypg-7-Tckfnpgja Vlgoq-0-Nkfyxvgkh Gamma Globulins PEP Interpretation HDL Cholesterol TSH Arterial Blood Glucose Arterial Blood Ionized Calcium Urine WBC (Auto) Urine Creatinine Urine Total Protein Crossmatch 04/22/21 04/22/21 04/22/21 08:59 08:59 09:44 WBC RBC Hgb Hct MCH RDW Plt Count Seg Neuts % (Manual) Lymphocytes % (Manual) Nucleated RBC % Seg Neutrophils # Man Lymphocytes # (Manual) PT ABG pH POC ABG pCO2 POC ABG pO2 ABG pO2 ABG O2 Saturation ABG Base Excess ABG Hemoglobin ABG Oxyhemoglobin ABG Potassium ABG Chloride ABG Glucose Oxyhemoglobin Carboxyhemoglobin Sodium 169 H* Potassium 3.5 L Chloride 134.5 H Carbon Dioxide 20 L BUN 95 H Creatinine 3.6 H Glucose 151 H POC Glucose Hemoglobin A1c Lactic Acid Calcium Phosphorus Magnesium 2.80 H Transferrin AST 121 H ALT 75 H Alkaline Phosphatase 137 H Total Creatine Kinase CK-MB (CK-2) Serum Total Protein 5.5 L Total Protein 6.0 L Albumin 2.8 L 2.1 L Pjlnr-5-Ksvqhtesv 0.6 H Ncsjm-7-Apyxjfwzy 1.0 H Gamma Globulins 0.6 L PEP Interpretation see below H HDL Cholesterol TSH Arterial Blood Glucose Arterial Blood Ionized Calcium Urine WBC (Auto) Urine Creatinine Urine Total Protein Crossmatch 04/22/21 04/22/21 04/22/21 10:24 12:20 13:19 WBC RBC Hgb Hct MCH RDW Plt Count Seg Neuts % (Manual) Lymphocytes % (Manual) Nucleated RBC % Seg Neutrophils # Man Lymphocytes # (Manual) PT ABG pH POC ABG pCO2 POC ABG pO2 ABG pO2 ABG O2 Saturation ABG Base Excess ABG Hemoglobin ABG Oxyhemoglobin ABG Potassium ABG Chloride ABG Glucose Oxyhemoglobin Carboxyhemoglobin Sodium Potassium Chloride Carbon Dioxide BUN Creatinine Glucose POC Glucose 107 H 131 H 147 H Hemoglobin A1c Lactic Acid Calcium Phosphorus Magnesium Transferrin AST ALT Alkaline Phosphatase Total Creatine Kinase CK-MB (CK-2) Serum Total Protein Total Protein Albumin Fabjr-1-Hhzhjeqai Jewsm-7-Jchltbgji Gamma Globulins PEP Interpretation HDL Cholesterol TSH Arterial Blood Glucose Arterial Blood Ionized Calcium Urine WBC (Auto) Urine Creatinine Urine Total Protein Crossmatch 04/22/21 04/22/21 04/22/21 14:16 15:22 15:55 WBC RBC Hgb Hct MCH RDW Plt Count Seg Neuts % (Manual) Lymphocytes % (Manual) Nucleated RBC % Seg Neutrophils # Man Lymphocytes # (Manual) PT ABG pH POC ABG pCO2 POC ABG pO2 ABG pO2 ABG O2 Saturation ABG Base Excess ABG Hemoglobin ABG Oxyhemoglobin ABG Potassium ABG Chloride ABG Glucose Oxyhemoglobin Carboxyhemoglobin Sodium 169 H* Potassium Chloride 133.5 H Carbon Dioxide 19 L BUN 94 H Creatinine 3.8 H Glucose 150 H POC Glucose 154 H 136 H Hemoglobin A1c Lactic Acid Calcium Phosphorus Magnesium Transferrin AST ALT Alkaline Phosphatase Total Creatine Kinase CK-MB (CK-2) Serum Total Protein Total Protein Albumin Epevs-1-Jqdfqbivw Ekljr-7-Mcptngeyx Gamma Globulins PEP Interpretation HDL Cholesterol TSH Arterial Blood Glucose Arterial Blood Ionized Calcium Urine WBC (Auto) Urine Creatinine Urine Total Protein Crossmatch 04/22/21 04/22/21 04/22/21 15:55 16:22 18:11 WBC RBC Hgb Hct MCH RDW Plt Count Seg Neuts % (Manual) Lymphocytes % (Manual) Nucleated RBC % Seg Neutrophils # Man Lymphocytes # (Manual) PT ABG pH POC ABG pCO2 POC ABG pO2 ABG pO2 ABG O2 Saturation ABG Base Excess ABG Hemoglobin ABG Oxyhemoglobin ABG Potassium ABG Chloride ABG Glucose Oxyhemoglobin Carboxyhemoglobin Sodium Potassium Chloride Carbon Dioxide BUN Creatinine Glucose POC Glucose 140 H Hemoglobin A1c 17.1 H Lactic Acid Calcium Phosphorus Magnesium Transferrin AST ALT Alkaline Phosphatase Total Creatine Kinase 2497 H CK-MB (CK-2) Serum Total Protein Total Protein Albumin Fmjok-6-Mnxzmnrwx Obxgh-1-Wmkpweejh Gamma Globulins PEP Interpretation HDL Cholesterol TSH Arterial Blood Glucose Arterial Blood Ionized Calcium Urine WBC (Auto) Urine Creatinine Urine Total Protein Crossmatch 04/22/21 04/22/21 04/23/21 18:26 23:19 00:27 WBC RBC Hgb Hct MCH RDW Plt Count Seg Neuts % (Manual) Lymphocytes % (Manual) Nucleated RBC % Seg Neutrophils # Man Lymphocytes # (Manual) PT ABG pH POC ABG pCO2 POC ABG pO2 ABG pO2 ABG O2 Saturation ABG Base Excess ABG Hemoglobin ABG Oxyhemoglobin ABG Potassium ABG Chloride ABG Glucose Oxyhemoglobin Carboxyhemoglobin Sodium 162 H* Potassium Chloride Carbon Dioxide BUN Creatinine Glucose POC Glucose 146 H 188 H Hemoglobin A1c Lactic Acid Calcium Phosphorus Magnesium Transferrin AST ALT Alkaline Phosphatase Total Creatine Kinase CK-MB (CK-2) Serum Total Protein Total Protein Albumin Vhwon-8-Kebotoubg Vaxhz-5-Iboyzavwo Gamma Globulins PEP Interpretation HDL Cholesterol TSH Arterial Blood Glucose Arterial Blood Ionized Calcium Urine WBC (Auto) Urine Creatinine Urine Total Protein Crossmatch 04/23/21 04/23/21 04/23/21 05:23 07:50 08:13 WBC RBC Hgb Hct MCH RDW Plt Count Seg Neuts % (Manual) Lymphocytes % (Manual) Nucleated RBC % Seg Neutrophils # Man Lymphocytes # (Manual) PT ABG pH POC ABG pCO2 POC ABG pO2 ABG pO2 ABG O2 Saturation ABG Base Excess ABG Hemoglobin ABG Oxyhemoglobin ABG Potassium ABG Chloride ABG Glucose Oxyhemoglobin Carboxyhemoglobin Sodium Potassium Chloride Carbon Dioxide BUN Creatinine Glucose POC Glucose 212 H 239 H Hemoglobin A1c Lactic Acid Calcium Phosphorus Magnesium Transferrin AST ALT Alkaline Phosphatase Total Creatine Kinase 1803 H CK-MB (CK-2) Serum Total Protein Total Protein Albumin Lcrlg-5-Xcvjmynvb Aofzj-2-Hkaisvsxo Gamma Globulins PEP Interpretation HDL Cholesterol TSH Arterial Blood Glucose Arterial Blood Ionized Calcium Urine WBC (Auto) Urine Creatinine Urine Total Protein Crossmatch 04/23/21 04/23/21 04/23/21 08:13 08:13 12:06 WBC 11.9 H RBC Hgb Hct MCH 26 L RDW 16.5 H Plt Count 72 L Seg Neuts % (Manual) 80.0 H Lymphocytes % (Manual) 5.0 L Nucleated RBC % Seg Neutrophils # Man 9.5 H Lymphocytes # (Manual) 0.6 L PT ABG pH POC ABG pCO2 POC ABG pO2 ABG pO2 ABG O2 Saturation ABG Base Excess ABG Hemoglobin ABG Oxyhemoglobin ABG Potassium ABG Chloride ABG Glucose Oxyhemoglobin Carboxyhemoglobin Sodium 164 H* Potassium Chloride 128.0 H Carbon Dioxide 21 L BUN 93 H Creatinine 3.8 H Glucose 293 H POC Glucose 311 H Hemoglobin A1c Lactic Acid Calcium Phosphorus Magnesium Transferrin AST 99 H ALT 70 H Alkaline Phosphatase 147 H Total Creatine Kinase CK-MB (CK-2) Serum Total Protein Total Protein 6.1 L Albumin 2.0 L Tlmui-0-Heawyldgu Prhjg-6-Jmpgzfbwg Gamma Globulins PEP Interpretation HDL Cholesterol TSH Arterial Blood Glucose Arterial Blood Ionized Calcium Urine WBC (Auto) Urine Creatinine Urine Total Protein Crossmatch 04/23/21 04/23/21 04/24/21 17:35 18:17 02:13 WBC RBC Hgb Hct MCH RDW Plt Count Seg Neuts % (Manual) Lymphocytes % (Manual) Nucleated RBC % Seg Neutrophils # Man Lymphocytes # (Manual) PT ABG pH POC ABG pCO2 POC ABG pO2 ABG pO2 ABG O2 Saturation ABG Base Excess ABG Hemoglobin ABG Oxyhemoglobin ABG Potassium ABG Chloride ABG Glucose Oxyhemoglobin Carboxyhemoglobin Sodium 160 H 160 H Potassium Chloride Carbon Dioxide BUN Creatinine Glucose POC Glucose 370 H Hemoglobin A1c Lactic Acid Calcium Phosphorus Magnesium Transferrin AST ALT Alkaline Phosphatase Total Creatine Kinase CK-MB (CK-2) Serum Total Protein Total Protein Albumin Sltjg-8-Cmqeahofi Tehto-3-Rsqcggmhg Gamma Globulins PEP Interpretation HDL Cholesterol TSH Arterial Blood Glucose Arterial Blood Ionized Calcium Urine WBC (Auto) Urine Creatinine Urine Total Protein Crossmatch 04/24/21 04/24/21 04/24/21 06:00 06:00 07:46 WBC RBC Hgb Hct MCH 27 L RDW 17.0 H Plt Count 58 L Seg Neuts % (Manual) Lymphocytes % (Manual) 2.0 L Nucleated RBC % Seg Neutrophils # Man 8.9 H Lymphocytes # (Manual) 0.2 L PT ABG pH POC ABG pCO2 POC ABG pO2 ABG pO2 ABG O2 Saturation ABG Base Excess ABG Hemoglobin ABG Oxyhemoglobin ABG Potassium ABG Chloride ABG Glucose Oxyhemoglobin Carboxyhemoglobin Sodium Potassium Chloride Carbon Dioxide BUN Creatinine Glucose POC Glucose 395 H Hemoglobin A1c Lactic Acid Calcium Phosphorus Magnesium 2.90 H Transferrin AST ALT Alkaline Phosphatase Total Creatine Kinase CK-MB (CK-2) Serum Total Protein Total Protein Albumin Puzeu-8-Ndhwwunyg Cwjrx-6-Oayacbemj Gamma Globulins PEP Interpretation HDL Cholesterol TSH Arterial Blood Glucose Arterial Blood Ionized Calcium Urine WBC (Auto) Urine Creatinine Urine Total Protein Crossmatch 04/24/21 04/24/21 04/24/21 08:15 11:34 13:11 WBC RBC Hgb Hct MCH RDW Plt Count Seg Neuts % (Manual) Lymphocytes % (Manual) Nucleated RBC % Seg Neutrophils # Man Lymphocytes # (Manual) PT ABG pH POC ABG pCO2 POC ABG pO2 ABG pO2 ABG O2 Saturation ABG Base Excess ABG Hemoglobin ABG Oxyhemoglobin ABG Potassium ABG Chloride ABG Glucose Oxyhemoglobin Carboxyhemoglobin Sodium 159 H Potassium Chloride 125.6 H Carbon Dioxide 19 L BUN 94 H Creatinine 3.7 H Glucose 514 H* POC Glucose 422 H 384 H Hemoglobin A1c Lactic Acid Calcium Phosphorus Magnesium Transferrin AST ALT 61 H Alkaline Phosphatase 155 H Total Creatine Kinase CK-MB (CK-2) Serum Total Protein Total Protein 6.1 L Albumin 1.5 L Oahfz-3-Yilxpxyxd Kfftp-1-Qzplgwjiu Gamma Globulins PEP Interpretation HDL Cholesterol TSH Arterial Blood Glucose Arterial Blood Ionized Calcium Urine WBC (Auto) Urine Creatinine Urine Total Protein Crossmatch 04/24/21 04/24/21 04/24/21 14:01 15:03 17:29 WBC RBC Hgb Hct MCH RDW Plt Count Seg Neuts % (Manual) Lymphocytes % (Manual) Nucleated RBC % Seg Neutrophils # Man Lymphocytes # (Manual) PT ABG pH POC ABG pCO2 POC ABG pO2 ABG pO2 ABG O2 Saturation ABG Base Excess ABG Hemoglobin ABG Oxyhemoglobin ABG Potassium ABG Chloride ABG Glucose Oxyhemoglobin Carboxyhemoglobin Sodium Potassium Chloride Carbon Dioxide BUN Creatinine Glucose POC Glucose 423 H 418 H Hemoglobin A1c Lactic Acid Calcium Phosphorus Magnesium Transferrin 112 L AST ALT Alkaline Phosphatase Total Creatine Kinase CK-MB (CK-2) Serum Total Protein Total Protein Albumin Bflzi-9-Xgygcndzt Kgbmh-1-Srppqhikf Gamma Globulins PEP Interpretation HDL Cholesterol TSH Arterial Blood Glucose Arterial Blood Ionized Calcium Urine WBC (Auto) Urine Creatinine Urine Total Protein Crossmatch 04/24/21 04/24/21 04/24/21 18:28 19:41 22:33 WBC RBC Hgb Hct MCH RDW Plt Count Seg Neuts % (Manual) Lymphocytes % (Manual) Nucleated RBC % Seg Neutrophils # Man Lymphocytes # (Manual) PT ABG pH POC ABG pCO2 POC ABG pO2 ABG pO2 ABG O2 Saturation ABG Base Excess ABG Hemoglobin ABG Oxyhemoglobin ABG Potassium ABG Chloride ABG Glucose Oxyhemoglobin Carboxyhemoglobin Sodium Potassium Chloride Carbon Dioxide BUN Creatinine Glucose POC Glucose 335 H 321 H 349 H Hemoglobin A1c Lactic Acid Calcium Phosphorus Magnesium Transferrin AST ALT Alkaline Phosphatase Total Creatine Kinase CK-MB (CK-2) Serum Total Protein Total Protein Albumin Grzas-9-Qrlrckrfj Hfuck-8-Omaqeryge Gamma Globulins PEP Interpretation HDL Cholesterol TSH Arterial Blood Glucose Arterial Blood Ionized Calcium Urine WBC (Auto) Urine Creatinine Urine Total Protein Crossmatch 04/25/21 04/25/21 04/25/21 01:28 02:28 03:25 WBC RBC Hgb Hct MCH RDW Plt Count Seg Neuts % (Manual) Lymphocytes % (Manual) Nucleated RBC % Seg Neutrophils # Man Lymphocytes # (Manual) PT ABG pH POC ABG pCO2 POC ABG pO2 ABG pO2 ABG O2 Saturation ABG Base Excess ABG Hemoglobin ABG Oxyhemoglobin ABG Potassium ABG Chloride ABG Glucose Oxyhemoglobin Carboxyhemoglobin Sodium Potassium Chloride Carbon Dioxide BUN Creatinine Glucose POC Glucose 283 H 247 H 196 H Hemoglobin A1c Lactic Acid Calcium Phosphorus Magnesium Transferrin AST ALT Alkaline Phosphatase Total Creatine Kinase CK-MB (CK-2) Serum Total Protein Total Protein Albumin Lzvez-2-Vnecrbxtc Vqwex-0-Ypctfttyt Gamma Globulins PEP Interpretation HDL Cholesterol TSH Arterial Blood Glucose Arterial Blood Ionized Calcium Urine WBC (Auto) Urine Creatinine Urine Total Protein Crossmatch 04/25/21 04/25/21 04/25/21 04:22 05:40 05:45 WBC RBC Hgb Hct MCH 27 L RDW 17.0 H Plt Count 64 L Seg Neuts % (Manual) 84.0 H Lymphocytes % (Manual) 6.0 L Nucleated RBC % 1.0 H Seg Neutrophils # Man Lymphocytes # (Manual) 0.4 L PT ABG pH POC ABG pCO2 POC ABG pO2 ABG pO2 ABG O2 Saturation ABG Base Excess ABG Hemoglobin ABG Oxyhemoglobin ABG Potassium ABG Chloride ABG Glucose Oxyhemoglobin Carboxyhemoglobin Sodium Potassium Chloride Carbon Dioxide BUN Creatinine Glucose POC Glucose 207 H 204 H Hemoglobin A1c Lactic Acid Calcium Phosphorus Magnesium Transferrin AST ALT Alkaline Phosphatase Total Creatine Kinase CK-MB (CK-2) Serum Total Protein Total Protein Albumin Bljqs-4-Twxekzcfi Hqmqu-9-Ptlmnmpap Gamma Globulins PEP Interpretation HDL Cholesterol TSH Arterial Blood Glucose Arterial Blood Ionized Calcium Urine WBC (Auto) Urine Creatinine Urine Total Protein Crossmatch 04/25/21 04/25/21 04/25/21 06:43 07:37 08:11 WBC RBC Hgb Hct MCH RDW Plt Count Seg Neuts % (Manual) Lymphocytes % (Manual) Nucleated RBC % Seg Neutrophils # Man Lymphocytes # (Manual) PT ABG pH POC ABG pCO2 POC ABG pO2 ABG pO2 ABG O2 Saturation ABG Base Excess ABG Hemoglobin ABG Oxyhemoglobin ABG Potassium ABG Chloride ABG Glucose Oxyhemoglobin Carboxyhemoglobin Sodium 148 H D Potassium Chloride 115.7 H Carbon Dioxide 21 L BUN 83 H Creatinine 3.6 H Glucose 247 H POC Glucose 238 H 201 H Hemoglobin A1c Lactic Acid Calcium Phosphorus Magnesium Transferrin AST 63 H ALT 62 H Alkaline Phosphatase 143 H Total Creatine Kinase CK-MB (CK-2) Serum Total Protein Total Protein 5.4 L Albumin 1.4 L Julwp-6-Dfchfjrfi Atohy-1-Rzueeovof Gamma Globulins PEP Interpretation HDL Cholesterol TSH Arterial Blood Glucose Arterial Blood Ionized Calcium Urine WBC (Auto) Urine Creatinine Urine Total Protein Crossmatch 04/25/21 04/25/21 04/25/21 08:11 08:41 09:22 WBC RBC Hgb Hct MCH RDW Plt Count Seg Neuts % (Manual) Lymphocytes % (Manual) Nucleated RBC % Seg Neutrophils # Man Lymphocytes # (Manual) PT ABG pH POC ABG pCO2 POC ABG pO2 ABG pO2 ABG O2 Saturation ABG Base Excess ABG Hemoglobin ABG Oxyhemoglobin ABG Potassium ABG Chloride ABG Glucose Oxyhemoglobin Carboxyhemoglobin Sodium Potassium Chloride Carbon Dioxide BUN Creatinine Glucose POC Glucose 220 H 228 H Hemoglobin A1c Lactic Acid Calcium Phosphorus Magnesium 2.50 H Transferrin AST ALT Alkaline Phosphatase Total Creatine Kinase CK-MB (CK-2) Serum Total Protein Total Protein Albumin Ewpeb-7-Cksvagxzf Dculn-0-Uvarncgrp Gamma Globulins PEP Interpretation HDL Cholesterol TSH Arterial Blood Glucose Arterial Blood Ionized Calcium Urine WBC (Auto) Urine Creatinine Urine Total Protein Crossmatch 04/25/21 04/25/21 04/25/21 10:31 11:44 12:23 WBC RBC Hgb Hct MCH RDW Plt Count Seg Neuts % (Manual) Lymphocytes % (Manual) Nucleated RBC % Seg Neutrophils # Man Lymphocytes # (Manual) PT ABG pH POC ABG pCO2 POC ABG pO2 ABG pO2 ABG O2 Saturation ABG Base Excess ABG Hemoglobin ABG Oxyhemoglobin ABG Potassium ABG Chloride ABG Glucose Oxyhemoglobin Carboxyhemoglobin Sodium Potassium Chloride Carbon Dioxide BUN Creatinine Glucose POC Glucose 215 H 191 H 229 H Hemoglobin A1c Lactic Acid Calcium Phosphorus Magnesium Transferrin AST ALT Alkaline Phosphatase Total Creatine Kinase CK-MB (CK-2) Serum Total Protein Total Protein Albumin Fprrl-4-Ryrcrsmed Huvgl-6-Ifukpgqyd Gamma Globulins PEP Interpretation HDL Cholesterol TSH Arterial Blood Glucose Arterial Blood Ionized Calcium Urine WBC (Auto) Urine Creatinine Urine Total Protein Crossmatch 04/25/21 04/25/21 04/25/21 13:48 14:11 18:01 WBC RBC Hgb Hct MCH RDW Plt Count Seg Neuts % (Manual) Lymphocytes % (Manual) Nucleated RBC % Seg Neutrophils # Man Lymphocytes # (Manual) PT ABG pH POC ABG pCO2 POC ABG pO2 ABG pO2 ABG O2 Saturation ABG Base Excess ABG Hemoglobin ABG Oxyhemoglobin ABG Potassium ABG Chloride ABG Glucose Oxyhemoglobin Carboxyhemoglobin Sodium Potassium Chloride Carbon Dioxide BUN Creatinine Glucose POC Glucose 177 H 161 H 264 H Hemoglobin A1c Lactic Acid Calcium Phosphorus Magnesium Transferrin AST ALT Alkaline Phosphatase Total Creatine Kinase CK-MB (CK-2) Serum Total Protein Total Protein Albumin Cihpf-6-Fariukqan Opikh-2-Bfewjfxvs Gamma Globulins PEP Interpretation HDL Cholesterol TSH Arterial Blood Glucose Arterial Blood Ionized Calcium Urine WBC (Auto) Urine Creatinine Urine Total Protein Crossmatch 04/25/21 04/26/21 04/26/21 21:31 01:19 06:31 WBC RBC Hgb Hct MCH RDW Plt Count Seg Neuts % (Manual) Lymphocytes % (Manual) Nucleated RBC % Seg Neutrophils # Man Lymphocytes # (Manual) PT ABG pH POC ABG pCO2 POC ABG pO2 ABG pO2 ABG O2 Saturation ABG Base Excess ABG Hemoglobin ABG Oxyhemoglobin ABG Potassium ABG Chloride ABG Glucose Oxyhemoglobin Carboxyhemoglobin Sodium Potassium Chloride Carbon Dioxide BUN Creatinine Glucose POC Glucose 371 H 356 H 428 H Hemoglobin A1c Lactic Acid Calcium Phosphorus Magnesium Transferrin AST ALT Alkaline Phosphatase Total Creatine Kinase CK-MB (CK-2) Serum Total Protein Total Protein Albumin Zachw-2-Npknlakji Ortgc-4-Jccbsbzqe Gamma Globulins PEP Interpretation HDL Cholesterol TSH Arterial Blood Glucose Arterial Blood Ionized Calcium Urine WBC (Auto) Urine Creatinine Urine Total Protein Crossmatch 04/26/21 04/26/21 04/26/21 09:13 09:33 09:33 WBC RBC Hgb Hct MCH 27 L RDW 16.9 H Plt Count 58 L Seg Neuts % (Manual) 77.0 H Lymphocytes % (Manual) 4.0 L Nucleated RBC % 2.0 H Seg Neutrophils # Man Lymphocytes # (Manual) 0.3 L PT ABG pH POC ABG pCO2 POC ABG pO2 ABG pO2 ABG O2 Saturation ABG Base Excess ABG Hemoglobin ABG Oxyhemoglobin ABG Potassium ABG Chloride ABG Glucose Oxyhemoglobin Carboxyhemoglobin Sodium Potassium Chloride Carbon Dioxide BUN Creatinine Glucose POC Glucose 454 H Hemoglobin A1c Lactic Acid Calcium Phosphorus 5.60 H D Magnesium Transferrin AST ALT Alkaline Phosphatase Total Creatine Kinase CK-MB (CK-2) Serum Total Protein Total Protein Albumin Ligcm-1-Vfpxcwezh Akyxl-9-Chkvzioar Gamma Globulins PEP Interpretation HDL Cholesterol TSH Arterial Blood Glucose Arterial Blood Ionized Calcium Urine WBC (Auto) Urine Creatinine Urine Total Protein Crossmatch 04/26/21 04/26/21 04/26/21 09:33 11:00 12:36 WBC RBC Hgb Hct MCH RDW Plt Count Seg Neuts % (Manual) Lymphocytes % (Manual) Nucleated RBC % Seg Neutrophils # Man Lymphocytes # (Manual) PT ABG pH 7.281 L POC ABG pCO2 POC ABG pO2 66.4 L ABG pO2 ABG O2 Saturation ABG Base Excess ABG Hemoglobin 10.9 L ABG Oxyhemoglobin 91 L ABG Potassium ABG Chloride ABG Glucose 521 H Oxyhemoglobin Carboxyhemoglobin Sodium Potassium Chloride Carbon Dioxide 19 L BUN 98 H Creatinine 3.8 H Glucose 530 H* POC Glucose 414 H Hemoglobin A1c Lactic Acid Calcium 8.1 L Phosphorus Magnesium Transferrin AST 60 H ALT 72 H Alkaline Phosphatase 168 H Total Creatine Kinase CK-MB (CK-2) Serum Total Protein Total Protein 4.6 L Albumin 1.7 L Cmfko-5-Qcrjsyukr Sjujn-8-Tmbpnddtf Gamma Globulins PEP Interpretation HDL Cholesterol TSH Arterial Blood Glucose 521 H Arterial Blood Ionized Calcium Urine WBC (Auto) Urine Creatinine Urine Total Protein Crossmatch 04/26/21 04/26/21 04/26/21 15:39 16:18 21:14 WBC RBC Hgb Hct MCH RDW Plt Count Seg Neuts % (Manual) Lymphocytes % (Manual) Nucleated RBC % Seg Neutrophils # Man Lymphocytes # (Manual) PT ABG pH 7.275 L POC ABG pCO2 POC ABG pO2 63.4 L ABG pO2 ABG O2 Saturation ABG Base Excess ABG Hemoglobin 8.4 L ABG Oxyhemoglobin 89.5 L ABG Potassium ABG Chloride 108.0 H ABG Glucose 404 H Oxyhemoglobin Carboxyhemoglobin Sodium Potassium Chloride Carbon Dioxide BUN Creatinine Glucose POC Glucose 324 H 242 H Hemoglobin A1c Lactic Acid Calcium Phosphorus Magnesium Transferrin AST ALT Alkaline Phosphatase Total Creatine Kinase CK-MB (CK-2) Serum Total Protein Total Protein Albumin Ozspt-6-Wpylyptha Vkuie-5-Cccehxgxd Gamma Globulins PEP Interpretation HDL Cholesterol TSH Arterial Blood Glucose 404 H Arterial Blood Ionized Calcium Urine WBC (Auto) Urine Creatinine Urine Total Protein Crossmatch 04/27/21 04/27/21 04/27/21 00:07 05:47 06:23 WBC RBC Hgb Hct MCH RDW Plt Count Seg Neuts % (Manual) Lymphocytes % (Manual) Nucleated RBC % Seg Neutrophils # Man Lymphocytes # (Manual) PT ABG pH POC ABG pCO2 POC ABG pO2 ABG pO2 ABG O2 Saturation ABG Base Excess ABG Hemoglobin ABG Oxyhemoglobin ABG Potassium ABG Chloride ABG Glucose Oxyhemoglobin Carboxyhemoglobin Sodium Potassium Chloride Carbon Dioxide BUN Creatinine Glucose POC Glucose 282 H 214 H 187 H Hemoglobin A1c Lactic Acid Calcium Phosphorus Magnesium Transferrin AST ALT Alkaline Phosphatase Total Creatine Kinase CK-MB (CK-2) Serum Total Protein Total Protein Albumin Jjcxu-6-Oplgcfmsc Kuyjj-8-Jgfidbrcj Gamma Globulins PEP Interpretation HDL Cholesterol TSH Arterial Blood Glucose Arterial Blood Ionized Calcium Urine WBC (Auto) Urine Creatinine Urine Total Protein Crossmatch 04/27/21 04/27/21 04/27/21 07:43 08:30 11:54 WBC RBC Hgb Hct MCH RDW Plt Count Seg Neuts % (Manual) Lymphocytes % (Manual) Nucleated RBC % Seg Neutrophils # Man Lymphocytes # (Manual) PT ABG pH 7.309 L POC ABG pCO2 POC ABG pO2 70.6 L ABG pO2 ABG O2 Saturation ABG Base Excess ABG Hemoglobin 9.16 L ABG Oxyhemoglobin 92.4 L ABG Potassium ABG Chloride ABG Glucose Oxyhemoglobin Carboxyhemoglobin Sodium Potassium Chloride 110.1 H Carbon Dioxide 15 L BUN 109 H Creatinine 4.3 H Glucose 218 H POC Glucose 147 H Hemoglobin A1c Lactic Acid Calcium Phosphorus Magnesium Transferrin AST 53 H ALT Alkaline Phosphatase 148 H Total Creatine Kinase 1000 H CK-MB (CK-2) Serum Total Protein Total Protein 5.2 L Albumin 1.2 L Rfwbj-6-Gyllxkxwq Tpbmv-0-Zumyxrslj Gamma Globulins PEP Interpretation HDL Cholesterol TSH Arterial Blood Glucose Arterial Blood Ionized Calcium Urine WBC (Auto) Urine Creatinine Urine Total Protein Crossmatch 04/27/21 04/27/21 04/28/21 21:08 23:28 04:00 WBC 12.6 H RBC 3.59 L Hgb 9.4 L Hct MCH 26 L RDW 16.6 H Plt Count 111 L Seg Neuts % (Manual) Lymphocytes % (Manual) 1.0 L Nucleated RBC % 4.0 H Seg Neutrophils # Man 11.6 H Lymphocytes # (Manual) 0.1 L PT ABG pH POC ABG pCO2 POC ABG pO2 ABG pO2 ABG O2 Saturation ABG Base Excess ABG Hemoglobin ABG Oxyhemoglobin ABG Potassium ABG Chloride ABG Glucose Oxyhemoglobin Carboxyhemoglobin Sodium Potassium Chloride Carbon Dioxide BUN Creatinine Glucose POC Glucose 136 H 201 H Hemoglobin A1c Lactic Acid Calcium Phosphorus Magnesium Transferrin AST ALT Alkaline Phosphatase Total Creatine Kinase CK-MB (CK-2) Serum Total Protein Total Protein Albumin Qczvh-8-Dbbxytcdk Lgqbw-9-Uismjiggh Gamma Globulins PEP Interpretation HDL Cholesterol TSH Arterial Blood Glucose Arterial Blood Ionized Calcium Urine WBC (Auto) Urine Creatinine Urine Total Protein Crossmatch 04/28/21 04/28/21 04/28/21 04:00 05:00 05:08 WBC RBC Hgb Hct MCH RDW Plt Count Seg Neuts % (Manual) Lymphocytes % (Manual) Nucleated RBC % Seg Neutrophils # Man Lymphocytes # (Manual) PT 15.3 H ABG pH POC ABG pCO2 POC ABG pO2 ABG pO2 ABG O2 Saturation ABG Base Excess ABG Hemoglobin ABG Oxyhemoglobin ABG Potassium ABG Chloride ABG Glucose Oxyhemoglobin Carboxyhemoglobin Sodium 147 H Potassium 3.5 L D Chloride Carbon Dioxide BUN 79 H Creatinine 3.8 H Glucose 194 H POC Glucose 183 H Hemoglobin A1c Lactic Acid Calcium 8.1 L Phosphorus Magnesium Transferrin AST ALT Alkaline Phosphatase Total Creatine Kinase CK-MB (CK-2) Serum Total Protein Total Protein Albumin Lebth-8-Oozlnxwfu Jmage-9-Speufcuik Gamma Globulins PEP Interpretation HDL Cholesterol TSH Arterial Blood Glucose Arterial Blood Ionized Calcium Urine WBC (Auto) Urine Creatinine Urine Total Protein Crossmatch 04/28/21 04/28/21 04/28/21 05:18 11:04 17:16 WBC RBC Hgb Hct MCH RDW Plt Count Seg Neuts % (Manual) Lymphocytes % (Manual) Nucleated RBC % Seg Neutrophils # Man Lymphocytes # (Manual) PT ABG pH POC ABG pCO2 POC ABG pO2 66.5 L ABG pO2 ABG O2 Saturation ABG Base Excess ABG Hemoglobin 9.7 L ABG Oxyhemoglobin 92.5 L ABG Potassium 3.2 L ABG Chloride ABG Glucose 200 H Oxyhemoglobin Carboxyhemoglobin Sodium Potassium Chloride Carbon Dioxide BUN Creatinine Glucose POC Glucose 174 H 135 H Hemoglobin A1c Lactic Acid Calcium Phosphorus Magnesium Transferrin AST ALT Alkaline Phosphatase Total Creatine Kinase CK-MB (CK-2) Serum Total Protein Total Protein Albumin Psvnx-8-Barttqwgk Wnbpz-3-Hpetszueh Gamma Globulins PEP Interpretation HDL Cholesterol TSH Arterial Blood Glucose 200 H Arterial Blood Ionized Calcium 4.5 L Urine WBC (Auto) Urine Creatinine Urine Total Protein Crossmatch 04/28/21 04/28/21 04/29/21 21:14 23:41 01:16 WBC RBC Hgb Hct MCH RDW Plt Count Seg Neuts % (Manual) Lymphocytes % (Manual) Nucleated RBC % Seg Neutrophils # Man Lymphocytes # (Manual) PT ABG pH POC ABG pCO2 POC ABG pO2 ABG pO2 ABG O2 Saturation ABG Base Excess ABG Hemoglobin ABG Oxyhemoglobin ABG Potassium ABG Chloride ABG Glucose Oxyhemoglobin Carboxyhemoglobin Sodium Potassium Chloride Carbon Dioxide BUN Creatinine Glucose POC Glucose 134 H 171 H 236 H Hemoglobin A1c Lactic Acid Calcium Phosphorus Magnesium Transferrin AST ALT Alkaline Phosphatase Total Creatine Kinase CK-MB (CK-2) Serum Total Protein Total Protein Albumin Tvetc-4-Vgecrwloa Qkeow-5-Gvfdodksd Gamma Globulins PEP Interpretation HDL Cholesterol TSH Arterial Blood Glucose Arterial Blood Ionized Calcium Urine WBC (Auto) Urine Creatinine Urine Total Protein Crossmatch 04/29/21 04/29/21 04/29/21 04:00 04:00 11:35 WBC 13.3 H RBC 3.12 L Hgb 8.3 L Hct 26.2 L MCH 27 L RDW 16.3 H Plt Count 132 L Seg Neuts % (Manual) Lymphocytes % (Manual) Nucleated RBC % Seg Neutrophils # Man Lymphocytes # (Manual) PT ABG pH POC ABG pCO2 POC ABG pO2 ABG pO2 ABG O2 Saturation ABG Base Excess ABG Hemoglobin ABG Oxyhemoglobin ABG Potassium ABG Chloride ABG Glucose Oxyhemoglobin Carboxyhemoglobin Sodium Potassium Chloride Carbon Dioxide BUN 63 H Creatinine 3.4 H Glucose 249 H POC Glucose 320 H Hemoglobin A1c Lactic Acid Calcium 8.2 L Phosphorus Magnesium Transferrin AST 61 H ALT 71 H Alkaline Phosphatase 170 H Total Creatine Kinase CK-MB (CK-2) Serum Total Protein Total Protein 5.1 L Albumin 1.6 L Enurm-1-Ikgrppepr Mvxnn-2-Algsaofvr Gamma Globulins PEP Interpretation HDL Cholesterol TSH Arterial Blood Glucose Arterial Blood Ionized Calcium Urine WBC (Auto) Urine Creatinine Urine Total Protein Crossmatch 04/29/21 04/29/21 04/29/21 13:30 16:01 21:58 WBC RBC Hgb Hct MCH RDW Plt Count Seg Neuts % (Manual) Lymphocytes % (Manual) Nucleated RBC % Seg Neutrophils # Man Lymphocytes # (Manual) PT ABG pH POC ABG pCO2 POC ABG pO2 ABG pO2 ABG O2 Saturation ABG Base Excess ABG Hemoglobin ABG Oxyhemoglobin ABG Potassium ABG Chloride ABG Glucose Oxyhemoglobin Carboxyhemoglobin Sodium Potassium Chloride Carbon Dioxide BUN Creatinine Glucose POC Glucose 297 H 260 H Hemoglobin A1c Lactic Acid Calcium Phosphorus Magnesium Transferrin AST ALT Alkaline Phosphatase Total Creatine Kinase CK-MB (CK-2) Serum Total Protein Total Protein Albumin Sfsps-0-Ggrewdaah Rshbj-8-Vqgpwajlc Gamma Globulins PEP Interpretation HDL Cholesterol TSH Arterial Blood Glucose Arterial Blood Ionized Calcium Urine WBC (Auto) > 182.0 H Urine Creatinine Urine Total Protein Crossmatch 04/29/21 04/30/21 04/30/21 23:35 04:00 04:00 WBC 11.4 H RBC 3.27 L Hgb 8.7 L Hct 27.5 L MCH 27 L RDW 16.6 H Plt Count Seg Neuts % (Manual) Lymphocytes % (Manual) Nucleated RBC % Seg Neutrophils # Man Lymphocytes # (Manual) PT ABG pH POC ABG pCO2 POC ABG pO2 ABG pO2 ABG O2 Saturation ABG Base Excess ABG Hemoglobin ABG Oxyhemoglobin ABG Potassium ABG Chloride ABG Glucose Oxyhemoglobin Carboxyhemoglobin Sodium Potassium 3.1 L Chloride Carbon Dioxide BUN 79 H Creatinine 3.9 H Glucose 275 H POC Glucose 254 H Hemoglobin A1c Lactic Acid Calcium Phosphorus 5.60 H D Magnesium Transferrin AST ALT Alkaline Phosphatase Total Creatine Kinase CK-MB (CK-2) Serum Total Protein Total Protein Albumin Wdtoq-6-Owwiqmjnk Uleta-0-Hofbesxmc Gamma Globulins PEP Interpretation HDL Cholesterol TSH Arterial Blood Glucose Arterial Blood Ionized Calcium Urine WBC (Auto) Urine Creatinine Urine Total Protein Crossmatch 04/30/21 04/30/21 04/30/21 05:17 05:31 12:31 WBC RBC Hgb Hct MCH RDW Plt Count Seg Neuts % (Manual) Lymphocytes % (Manual) Nucleated RBC % Seg Neutrophils # Man Lymphocytes # (Manual) PT ABG pH 7.452 H POC ABG pCO2 30.5 L POC ABG pO2 54.5 L ABG pO2 ABG O2 Saturation ABG Base Excess ABG Hemoglobin 10.1 L ABG Oxyhemoglobin 87.4 L ABG Potassium 2.9 L ABG Chloride ABG Glucose 305 H Oxyhemoglobin Carboxyhemoglobin Sodium Potassium Chloride Carbon Dioxide BUN Creatinine Glucose POC Glucose 267 H 259 H Hemoglobin A1c Lactic Acid Calcium Phosphorus Magnesium Transferrin AST ALT Alkaline Phosphatase Total Creatine Kinase CK-MB (CK-2) Serum Total Protein Total Protein Albumin Isfub-0-Lpuxgsioy Hhxsb-6-Mbnslelrh Gamma Globulins PEP Interpretation HDL Cholesterol TSH Arterial Blood Glucose 305 H Arterial Blood Ionized Calcium Urine WBC (Auto) Urine Creatinine Urine Total Protein Crossmatch 04/30/21 04/30/21 05/01/21 17:50 22:24 00:09 WBC RBC Hgb Hct MCH RDW Plt Count Seg Neuts % (Manual) Lymphocytes % (Manual) Nucleated RBC % Seg Neutrophils # Man Lymphocytes # (Manual) PT ABG pH POC ABG pCO2 POC ABG pO2 ABG pO2 ABG O2 Saturation ABG Base Excess ABG Hemoglobin ABG Oxyhemoglobin ABG Potassium ABG Chloride ABG Glucose Oxyhemoglobin Carboxyhemoglobin Sodium Potassium Chloride Carbon Dioxide BUN Creatinine Glucose POC Glucose 161 H 146 H 149 H Hemoglobin A1c Lactic Acid Calcium Phosphorus Magnesium Transferrin AST ALT Alkaline Phosphatase Total Creatine Kinase CK-MB (CK-2) Serum Total Protein Total Protein Albumin Bjkez-7-Reehuszuh Tvydp-0-Zgbrqdeeb Gamma Globulins PEP Interpretation HDL Cholesterol TSH Arterial Blood Glucose Arterial Blood Ionized Calcium Urine WBC (Auto) Urine Creatinine Urine Total Protein Crossmatch 05/01/21 05/01/21 05/01/21 03:30 04:00 04:00 WBC 12.0 H RBC 3.08 L Hgb 8.1 L Hct 25.6 L MCH 26 L RDW 16.3 H Plt Count Seg Neuts % (Manual) Lymphocytes % (Manual) Nucleated RBC % Seg Neutrophils # Man Lymphocytes # (Manual) PT ABG pH 7.493 H POC ABG pCO2 POC ABG pO2 ABG pO2 ABG O2 Saturation ABG Base Excess ABG Hemoglobin 25.0 H ABG Oxyhemoglobin ABG Potassium ABG Chloride ABG Glucose 167 H Oxyhemoglobin Carboxyhemoglobin 0.4 L Sodium Potassium 3.5 L Chloride Carbon Dioxide BUN 62 H Creatinine 3.3 H Glucose 179 H POC Glucose Hemoglobin A1c Lactic Acid Calcium 8.3 L Phosphorus Magnesium Transferrin AST ALT Alkaline Phosphatase Total Creatine Kinase CK-MB (CK-2) Serum Total Protein Total Protein Albumin Stzlu-4-Dbtrhqeix Wbbrq-0-Wbhsqwbsf Gamma Globulins PEP Interpretation HDL Cholesterol TSH Arterial Blood Glucose 167 H Arterial Blood Ionized Calcium Urine WBC (Auto) Urine Creatinine Urine Total Protein Crossmatch 05/01/21 05/01/21 05/01/21 05:48 11:49 16:24 WBC RBC Hgb Hct MCH RDW Plt Count Seg Neuts % (Manual) Lymphocytes % (Manual) Nucleated RBC % Seg Neutrophils # Man Lymphocytes # (Manual) PT ABG pH POC ABG pCO2 POC ABG pO2 ABG pO2 ABG O2 Saturation ABG Base Excess ABG Hemoglobin ABG Oxyhemoglobin ABG Potassium ABG Chloride ABG Glucose Oxyhemoglobin Carboxyhemoglobin Sodium Potassium Chloride Carbon Dioxide BUN Creatinine Glucose POC Glucose 197 H 167 H 157 H Hemoglobin A1c Lactic Acid Calcium Phosphorus Magnesium Transferrin AST ALT Alkaline Phosphatase Total Creatine Kinase CK-MB (CK-2) Serum Total Protein Total Protein Albumin Dlgbx-2-Zsnbzvqbo Fbuuw-2-Yodxzlvyn Gamma Globulins PEP Interpretation HDL Cholesterol TSH Arterial Blood Glucose Arterial Blood Ionized Calcium Urine WBC (Auto) Urine Creatinine Urine Total Protein Crossmatch 05/01/21 05/02/21 05/02/21 23:25 04:00 04:00 WBC 14.2 H RBC 2.61 L Hgb 6.9 L Hct 22.1 L MCH 27 L RDW 16.1 H Plt Count Seg Neuts % (Manual) Lymphocytes % (Manual) Nucleated RBC % Seg Neutrophils # Man Lymphocytes # (Manual) PT ABG pH POC ABG pCO2 POC ABG pO2 ABG pO2 ABG O2 Saturation ABG Base Excess ABG Hemoglobin ABG Oxyhemoglobin ABG Potassium ABG Chloride ABG Glucose Oxyhemoglobin Carboxyhemoglobin Sodium Potassium Chloride Carbon Dioxide BUN 49 H Creatinine 2.8 H Glucose 117 H POC Glucose 147 H Hemoglobin A1c Lactic Acid Calcium Phosphorus Magnesium Transferrin AST ALT Alkaline Phosphatase Total Creatine Kinase CK-MB (CK-2) Serum Total Protein Total Protein Albumin Kidtk-1-Bkzrmhghz Hsbne-4-Mfrhkjwks Gamma Globulins PEP Interpretation HDL Cholesterol TSH Arterial Blood Glucose Arterial Blood Ionized Calcium Urine WBC (Auto) Urine Creatinine Urine Total Protein Crossmatch 05/02/21 05/02/21 05/02/21 04:34 05:23 12:00 WBC RBC Hgb Hct MCH RDW Plt Count Seg Neuts % (Manual) Lymphocytes % (Manual) Nucleated RBC % Seg Neutrophils # Man Lymphocytes # (Manual) PT ABG pH 7.487 H POC ABG pCO2 POC ABG pO2 78.6 L ABG pO2 ABG O2 Saturation ABG Base Excess ABG Hemoglobin 11.5 L ABG Oxyhemoglobin ABG Potassium ABG Chloride ABG Glucose 122 H Oxyhemoglobin Carboxyhemoglobin Sodium Potassium Chloride Carbon Dioxide BUN Creatinine Glucose POC Glucose 119 H Hemoglobin A1c Lactic Acid Calcium Phosphorus Magnesium Transferrin AST ALT Alkaline Phosphatase Total Creatine Kinase CK-MB (CK-2) Serum Total Protein Total Protein Albumin Sjkcj-8-Gttgksdvq Dfemf-9-Pbmskjegj Gamma Globulins PEP Interpretation HDL Cholesterol TSH Arterial Blood Glucose 122 H Arterial Blood Ionized Calcium Urine WBC (Auto) Urine Creatinine Urine Total Protein Crossmatch See Detail 05/02/21 05/02/21 05/02/21 12:04 17:29 23:36 WBC RBC Hgb Hct MCH RDW Plt Count Seg Neuts % (Manual) Lymphocytes % (Manual) Nucleated RBC % Seg Neutrophils # Man Lymphocytes # (Manual) PT ABG pH POC ABG pCO2 POC ABG pO2 ABG pO2 ABG O2 Saturation ABG Base Excess ABG Hemoglobin ABG Oxyhemoglobin ABG Potassium ABG Chloride ABG Glucose Oxyhemoglobin Carboxyhemoglobin Sodium Potassium Chloride Carbon Dioxide BUN Creatinine Glucose POC Glucose 115 H 120 H 130 H Hemoglobin A1c Lactic Acid Calcium Phosphorus Magnesium Transferrin AST ALT Alkaline Phosphatase Total Creatine Kinase CK-MB (CK-2) Serum Total Protein Total Protein Albumin Omtil-9-Ammhgbknk Mjzen-2-Ucyltpozf Gamma Globulins PEP Interpretation HDL Cholesterol TSH Arterial Blood Glucose Arterial Blood Ionized Calcium Urine WBC (Auto) Urine Creatinine Urine Total Protein Crossmatch 05/03/21 05/03/21 05/03/21 04:00 04:00 17:26 WBC 13.9 H RBC 3.22 L Hgb 8.7 L Hct 27.4 L MCH 27 L RDW 15.8 H Plt Count Seg Neuts % (Manual) Lymphocytes % (Manual) Nucleated RBC % Seg Neutrophils # Man Lymphocytes # (Manual) PT ABG pH POC ABG pCO2 POC ABG pO2 ABG pO2 ABG O2 Saturation ABG Base Excess ABG Hemoglobin ABG Oxyhemoglobin ABG Potassium ABG Chloride ABG Glucose Oxyhemoglobin Carboxyhemoglobin Sodium 146 H Potassium 3.5 L Chloride 107.5 H Carbon Dioxide BUN 40 H Creatinine 2.5 H Glucose 104 H POC Glucose 123 H Hemoglobin A1c Lactic Acid Calcium Phosphorus Magnesium Transferrin AST 53 H ALT Alkaline Phosphatase 149 H Total Creatine Kinase CK-MB (CK-2) Serum Total Protein Total Protein 5.2 L Albumin 1.5 L Ewghr-6-Xxdxdlopr Dkxdt-1-Nhyqfrzye Gamma Globulins PEP Interpretation HDL Cholesterol TSH Arterial Blood Glucose Arterial Blood Ionized Calcium Urine WBC (Auto) Urine Creatinine Urine Total Protein Crossmatch 05/04/21 05/04/21 05/04/21 01:24 04:48 04:48 WBC 14.3 H RBC 3.14 L Hgb 8.5 L Hct 26.3 L MCH 27 L RDW 15.8 H Plt Count Seg Neuts % (Manual) Lymphocytes % (Manual) Nucleated RBC % Seg Neutrophils # Man Lymphocytes # (Manual) PT ABG pH POC ABG pCO2 POC ABG pO2 ABG pO2 ABG O2 Saturation ABG Base Excess ABG Hemoglobin ABG Oxyhemoglobin ABG Potassium ABG Chloride ABG Glucose Oxyhemoglobin Carboxyhemoglobin Sodium Potassium 3.5 L Chloride Carbon Dioxide BUN 58 H Creatinine 3.4 H Glucose 168 H POC Glucose 146 H Hemoglobin A1c Lactic Acid Calcium Phosphorus 5.30 H Magnesium Transferrin AST ALT Alkaline Phosphatase Total Creatine Kinase CK-MB (CK-2) Serum Total Protein Total Protein Albumin Pjtdr-5-Rwydklgve Irugc-9-Hmpiwiqvl Gamma Globulins PEP Interpretation HDL Cholesterol 24 L TSH Arterial Blood Glucose Arterial Blood Ionized Calcium Urine WBC (Auto) Urine Creatinine Urine Total Protein Crossmatch 05/04/21 05/04/21 05:15 11:24 WBC RBC Hgb Hct MCH RDW Plt Count Seg Neuts % (Manual) Lymphocytes % (Manual) Nucleated RBC % Seg Neutrophils # Man Lymphocytes # (Manual) PT ABG pH POC ABG pCO2 POC ABG pO2 ABG pO2 ABG O2 Saturation ABG Base Excess ABG Hemoglobin ABG Oxyhemoglobin ABG Potassium ABG Chloride ABG Glucose Oxyhemoglobin Carboxyhemoglobin Sodium Potassium Chloride Carbon Dioxide BUN Creatinine Glucose POC Glucose 162 H 145 H Hemoglobin A1c Lactic Acid Calcium Phosphorus Magnesium Transferrin AST ALT Alkaline Phosphatase Total Creatine Kinase CK-MB (CK-2) Serum Total Protein Total Protein Albumin Jhlmo-8-Kgsorqtyc Bouef-9-Cguvfuffw Gamma Globulins PEP Interpretation HDL Cholesterol TSH Arterial Blood Glucose Arterial Blood Ionized Calcium Urine WBC (Auto) Urine Creatinine Urine Total Protein Crossmatch
[2021-05-04] MEDS: MEROPENEM/NS 1 GRAM/100 ML 1 GRAM/100 ML BAG IV SCH (15:50)
--- NOTE | 2021-05-04 17:35 | Progress Note ---
<TANYAHENRIETTA ShannonJericho - Last Filed: 05/04/21 17:37> Assessment and Plan Assessment and plan: This is a 80-year-old female skilled nursing resident with GERD, hypothyroidism, hyperlipidemia, schizophrenia and dementia admitted with hypothermia, hyponatremia, hypokalemia, lactic acidosis, acute kidney injury, rhabdomyolysis and hyperosmolar nonketotic state. Neuro: Acute CVA, acute metabolic encephalopathy, normal pressure hydrocephalus -CT head shows lateral ventricles and third ventricle dilation, raises possibility of normal pressure hydrocephalus -Neurology and neurosurgery consulted, appreciate recommendations -neurosurgery has no acute interventions -04/29 s/p spinal tap removal 24 mL, mental is unchanged -csf fluid showed {14 wbc,324 rbc,normal protein and glucose ,c/s is unremarkable so far} -MRI brain is remarkable for multiple ischemic event cortical as well as subcortical in both hemisphere and in all distribuation with slight petechial hemorrhage is noted findings is suggestive of possible embolic event with water shed infarct can not be totally excluded. -MRA/MRV pending -Will consider LINCOLN -ASA 81 and lipitor -LDL noted -PT/ST/OT consulted -Aspiration/seizure precautions -Maintain sleep-wake cycle -Avoid delirium -Correct electrolyte derangements -Hold off on restarting home antipsychotic medications when obtained -Risperidone 3 mg, Donepazil 5 mg Cardio: Hypotension -Vasopressor support with Levophed -MAP goal above 65 -Midodrine -Dose increased today -Blood pressure monitoring per protocol -Home amlodipine 10 mg on hold Respiratory: Acute hypoxic respiratory failure -s/p Bipap and ventimask -s/p bronchoscopy on 04/26 -Intubated 04/26 with 7.5 oett at 22 lips -Am vent settings: AC Rate 14, TV 450, Peep 6, FiO2 40% -see RT notes for titration -AM ABG noted -s/p racimec epi x2 04/22 and 04/23 -Supplemental oxygen as needed -SPO2 monitoring -Pulmonary hygiene -Repeat CXR shows increased interstitial prominence of densities in bilateral lungs GI: Hypoalbuminemia, transaminitis -Presented with transaminitis -Trend LFTs -Ntr consult for TF -FWF 140 ml Q 4 hr -24 hours +559 ml -BR: Senokot -PPI -Nutritional supplementation -BMS in place : Severe hypernatremia (resolved), hyperchloremia (resolved), acute kidney injury likely secondary to vasomotor nephropathy, urinary retention, rhabdomyolysis (resolved), Hypokalemia, hyperphosphatemia -FeNA 0.50 indicating prerenal sate -Nephrology consulted, appreciate recommendations -HD initiated 04/27 -HD per nephrology -Luther catheter placed for strict intake and output; changed 05/02 -Avoid nephrotoxic medications -Trend BMP, CK -Renally dose medications -renal US WNL per read -May need to be initiated on phosphate binder ID: Sepsis likely 2/2 UTI and PNA -ID consulted, appreciate recommendations -COVID-19 PCR negative -04/26/2021 sputum culture: Roselyn nonalbicans -04/29/2021 UA showed significant pyuria. -UC pending -Lumbar puncture with CSF showing 14 WBC, 324 RBC, glucose 161, protein 51. -Abx per ID: IV meropenem, renally adjusted -Trend WBC and fever curve -f/u cultures Endo: s/p HHNK, h/o hypothyroidism -Restarted home levothyroxine (50 mcg q day) -s/p Insulin drip x2 -SSI -long acting insuling stopped today -TSH 6.04, T4 0.93 -Avoid hypoglycemia Heme: Leukocytosis, thrombocytopenia (resolved), anemia -HIT (-) -Trend CBC -Transfuse to hemoglobin less than 7 - s/p 1 unit PRBC -SCD to bilateral lower extremities while in bed -BUE dopplar US negative for DVT The high probability of a clinically significant, sudden or life threatening deterioration of the [multi] system(s) required my full and direct attention, intervention and personal management. The aggregate critical care time was [60] minutes. This time is in addition to time spent performing reported procedures but includes the following: [x] Data Review and interpretation [x] Patient assessment and monitoring of vital signs [x] Documentation [x] Medication orders and management Disposition Plan: ICU Total Time Spent with Patient (Minutes): 60 History Interval history: This is a 80-year-old female who was skilled nursing resident at [place] with GERD, hypothyroidism, hyperlipidemia, schizophrenia and dementia presented to the emergency department on 04/20 after being found unresponsive by the staff via EMS. Per EMS glucose levels read as high. Work-up in the emergency department revealed severe hypernatremia, leukocytosis, metabolic acidosis, hyperchloremia, elevated BUN/creatinine, lactic acidosis and hyperglycemia. Patient was also hypothermic on admit. CT head showed findings suggestive of the possibility of normal pressure hydrocephalus. Patient was admitted to the hospitalist service with acute metabolic encephalopathy, diabetic hyperosmolar nonketotic state, acute kidney injury, hypernatremia, rhabdomyolysis and leukocytosis with consults to nephrology and [facility]. 04/21: Given 1 L LR bolus per nephrology and D5W increased to 125 mL's per hour, COVID-19 PCR pending, CXR and ABG ordered as patient was weaned from BiPAP to 3 L nasal cannula however was uptitrated back to nonrebreather. Will obtain blood cultures x2 given her leukocytosis and hypothermia. Replace potassium. Neurosurgery and neurology consulted and Luther catheter placed. 04/22: Improvement to sodium noted, slight hypokalemia which will be repleted, slight improvement to renal function, LFTs and rhabdomyolysis. Seen by neurosurgery today. Patient still making urine. transition to ssi and start TF as AG 15 04/23/2021: Given racemic epinephrine again due to stridor, continue IV fluids per nephrology, continue to trend sodium and BMP. 04/24/2021: 70/30 increased d/t hyperglycemia but recent BMP showed BG>300, gave additional 5 units IV insulin and ordered 5 units TID scheduled. However after IV insulin her PCOT was 400. Start on insulin gtt for hyperglycemia. Per RN she was not of IV D5 overnight d/t having one IV which was needed for emergency. Day RN did start dextrose. Remains with hyperglycemia. 04/25: Patient obtunded, withdrawal to pain only, on 50%Venti mask SPO2 abobe 92%. Plan to transition to SubQ insulin. Patient with mild hypernatremia this am, FWF added, will stop IVF for now. 04/26: Patient s/p intubation this am. Mentation is unchanged, plan for MRI brain today per NeuroSurg. Still hyperglycemic, hypernatremia improved, D5W D/katlyn, and basal insulin adjusted. 04/27: Bronch overnight. CXR with mild improvement. D/w Nephro plan for HD today, RIJ VasCath inserted. MRI on hold per [facility] patient is too unstable at this time, plan for possible spinal drained tomorrow to see if mentation will improve. 04/28: Tolerated HD overnight, only UF. Mentation remains the same. D/w CCM plan for possible large volume spinal tap under fluoroscopy today. Plan for possible HD again today. Continue FWF for elevated Na. 04/29: MARY overnight. Plan for spinal tap this am. febrile overnight with leukocytosis, remains on pressors and more tachycardic now. Will panculture patient, and empiric IV was initiated. Remains hyperglycemic, basal insulin adjusted. 04/30: Patient's mentation remains unchanged post spinal tap. Plan for possible MRI brain next week. Afebrile overnight and leukocytosis improved, However, vent settings are going up and this am ABG with hypoxia, this am CXR with worsening opacities. Patient with 3+ pitting edema. Continue HD per Nephro. Continue current empiric IV abx, f/u on culture data, might need to get ID on board if worsen. 05/01: Mentation is unchanged, still on pressors. Febrile this am, continue IV abx, ID consulted. 3L out yesterday, plan for HD again tomorrow. Plt count improved, might need to restart AC, will D/w CCM. 05/02: No change in mentation and she is now noted to be decorticating to pain -> MRI brain ordered. Scheduled for HD today. ID consult completed. 05/03: Neurology consulted given MRI findings of multiple acute CVAs, LINCOLN ordered, EEG pending, started on aspirin and Lipitor. updated POA 05/04: Received hemodialysis today, will schedule for LINCOLN today however HD was ongoing at the time neurology will obtain MRA brain and neck then consider LINCOLN, increasing midodrine to aid in weaning Levophed. Hospitalist Physical - Constitutional Vitals: Temp Pulse Resp BP Pulse Ox 96.3 F L 86 23 161/69 95 05/04/21 16:00 05/04/21 17:00 05/04/21 17:00 05/04/21 17:00 05/04/21 17:00 General appearance: Present: no acute distress, other (Intubated) - EENT Eyes: Present: PERRL, EOM intact ENT: dentition normal - Neck Neck: Present: normal ROM - Respiratory Respiratory effort: normal Respiratory: bilateral: diminished - Cardiovascular Rhythm: regular Heart Sounds: Present: S1 & S2 - Extremities Extremities: no ischemia, pulses intact, pulses symmetrical, normal temperature, normal color Peripheral Pulses: within normal limits - Abdominal General gastrointestinal: soft, non-tender, non-distended, normal bowel sounds - Integumentary Integumentary: Present: warm, dry - Psychiatric Psychiatric: other - Neurologic Neurologic: other (Pupils equal round reactive, opens eyes and attempts to track but does not follow commands.) - Allied Health Allied health notes reviewed: nursing, RT, social work HEART Score - HEART Score Troponin: Troponin T 0.021 ng/mL (0.00-0.029) 04/20/21 17:10 Results - Labs CBC & Chem 7: 05/04/21 04:48 05/04/21 04:48 Labs: Laboratory Last Values WBC 14.3 K/mm3 (4.5-11.0) H 05/04/21 04:48 RBC 3.14 M/mm3 (3.65-5.03) L 05/04/21 04:48 Hgb 8.5 gm/dl (10.1-14.3) L 05/04/21 04:48 Hct 26.3 % (30.3-42.9) L 05/04/21 04:48 MCV 84 fl (79-97) 05/04/21 04:48 MCH 27 pg (28-32) L 05/04/21 04:48 MCHC 32 % (30-34) 05/04/21 04:48 RDW 15.8 % (13.2-15.2) H 05/04/21 04:48 Plt Count 236 K/mm3 (140-440) 05/04/21 04:48 Add Manual Diff Complete 04/28/21 04:00 Total Counted 100 04/28/21 04:00 Seg Neutrophils % Testing Manager 04/28/21 04:00 Seg Neuts % (Manual) 77.0 % (40.0-70.0) H 04/26/21 09:33 Band Neutrophils % 2.0 % 04/28/21 04:00 Lymphocytes % (Manual) 1.0 % (13.4-35.0) L 04/28/21 04:00 Reactive Lymphs % (Man) 0 % 04/28/21 04:00 Monocytes % (Manual) 1.0 % (0.0-7.3) 04/28/21 04:00 Eosinophils % (Manual) 3.0 % (0.0-4.3) 04/28/21 04:00 Metamyelocytes % 1.0 % 04/28/21 04:00 Myelocytes % 0 % 04/28/21 04:00 Promyelocytes % 0 % 04/28/21 04:00 Blast Cells % 0 % 04/28/21 04:00 Nucleated RBC % 4.0 % (0.0-0.9) H 04/28/21 04:00 Seg Neutrophils # Man 11.6 K/mm3 (1.8-7.7) H 04/28/21 04:00 Band Neutrophils # 0.3 K/mm3 04/28/21 04:00 Lymphocytes # (Manual) 0.1 K/mm3 (1.2-5.4) L 04/28/21 04:00 Abs React Lymphs (Man) 0.0 K/mm3 04/28/21 04:00 Monocytes # (Manual) 0.1 K/mm3 (0.0-0.8) 04/28/21 04:00 Eosinophils # (Manual) 0.4 K/mm3 (0.0-0.4) 04/28/21 04:00 Basophils # (Manual) 0.0 K/mm3 (0.0-0.1) 04/28/21 04:00 Metamyelocytes # 0.1 K/mm3 04/28/21 04:00 Myelocytes # 0.0 K/mm3 04/28/21 04:00 Promyelocytes # 0.0 K/mm3 04/28/21 04:00 Blast Cells # 0.0 K/mm3 04/28/21 04:00 WBC Morphology Not Reportable 04/28/21 04:00 Hypersegmented Neuts Not Reportable 04/28/21 04:00 Hyposegmented Neuts Not Reportable 04/28/21 04:00 Hypogranular Neuts Not Reportable 04/28/21 04:00 Smudge Cells Not Reportable 04/28/21 04:00 Toxic Granulation Not Reportable 04/28/21 04:00 Toxic Vacuolation Not Reportable 04/28/21 04:00 Dohle Bodies Not Reportable 04/28/21 04:00 Pelger-Huet Anomaly Not Reportable 04/28/21 04:00 Moni Rods Not Reportable 04/28/21 04:00 Platelet Estimate Consistent w auto 04/28/21 04:00 Clumped Platelets Not Reportable 04/28/21 04:00 Plt Clumps, EDTA Not Reportable 04/28/21 04:00 Large Platelets Few 04/28/21 04:00 Giant Platelets Not Reportable 04/28/21 04:00 Platelet Satelliting Not Reportable 04/28/21 04:00 Plt Morphology Comment Not Reportable 04/28/21 04:00 RBC Morphology Not Reportable 04/28/21 04:00 Dimorphic RBCs Not Reportable 04/28/21 04:00 Polychromasia Not Reportable 04/28/21 04:00 Hypochromasia Not Reportable 04/28/21 04:00 Poikilocytosis Not Reportable 04/28/21 04:00 Anisocytosis Not Reportable 04/28/21 04:00 Microcytosis Not Reportable 04/28/21 04:00 Macrocytosis Not Reportable 04/28/21 04:00 Spherocytes Not Reportable 04/28/21 04:00 Pappenheimer Bodies Not Reportable 04/28/21 04:00 Sickle Cells Not Reportable 04/28/21 04:00 Target Cells 1+ 04/28/21 04:00 Tear Drop Cells Not Reportable 04/28/21 04:00 Ovalocytes Not Reportable 04/28/21 04:00 Helmet Cells Not Reportable 04/28/21 04:00 [place] Bodies Not Reportable 04/28/21 04:00 [place] Rings Not Reportable 04/28/21 04:00 [place] Cells Not Reportable 04/28/21 04:00 Bite Cells Not Reportable 04/28/21 04:00 Crenated Cell Not Reportable 04/28/21 04:00 Elliptocytes Not Reportable 04/28/21 04:00 Acanthocytes (Spur) Not Reportable 04/28/21 04:00 Rouleaux Not Reportable 04/28/21 04:00 Hemoglobin C Crystals Not Reportable 04/28/21 04:00 Schistocytes Not Reportable 04/28/21 04:00 Malaria parasites Not Reportable 04/28/21 04:00 Herrera Bodies Not Reportable 04/28/21 04:00 Hem Pathologist Commnt No 04/28/21 04:00 PT 15.3 Sec. (12.2-14.9) H 04/28/21 05:00 INR 1.09 (0.87-1.13) 04/28/21 05:00 APTT 36.6 Sec. (24.2-36.6) 04/28/21 05:00 Heparin Anti-Xa, Unfract Negative (Negative) 04/24/21 17:29 ABG pH 7.487 (7.320-7.450) H 05/02/21 04:34 POC ABG pCO2 35.3 mmHg (32.0-48.0) 05/02/21 04:34 ABG pCO2 31.6 mm Hg 04/21/21 15:47 POC ABG pO2 78.6 mmHg (83-108) L 05/02/21 04:34 ABG pO2 168.1 mm Hg (80.0-90.0) H 04/21/21 15:47 POC ABG HCO3 26.1 05/02/21 04:34 ABG HCO3 23.3 mmol/L (20.0-26.0) 04/21/21 15:47 ABG O2 Saturation 96.0 (0-100) 05/02/21 04:34 ABG O2 Content 12.7 (0.0-44) 04/21/21 15:47 POC ABG Base Excess 2.9 05/02/21 04:34 ABG Base Excess 0.3 mmol/L (-2.0-3.0) 04/21/21 15:47 ABG Hemoglobin 11.5 (12.0-17.5) L 05/02/21 04:34 ABG Oxyhemoglobin 95.1 (94-98) 05/02/21 04:34 ABG Carboxyhemoglobin 1.0 % (0.0-5.0) 04/21/21 15:47 ABG Methemoglobin 0.3 (0.0-1.5) 05/02/21 04:34 ABG Sodium 138.6 mmol/L (136.0-145.0) 05/02/21 04:34 ABG Potassium 3.4 mmol/L (3.40-4.50) 05/02/21 04:34 ABG Chloride 105.0 mmol/L (98-107) 05/02/21 04:34 ABG Glucose 122 mg/dL (65-95) H 05/02/21 04:34 VBG pH 7.397 (7.320-7.420) 04/20/21 17:10 Oxyhemoglobin 97.5 % (95.0-99.0) 04/21/21 15:47 Carboxyhemoglobin 0.6 (0.5-1.5) 05/02/21 04:34 FiO2 100 % 04/21/21 15:47 FiO2 % 40.0 05/02/21 04:34 Sodium 145 mmol/L (137-145) 05/04/21 04:48 Potassium 3.5 mmol/L (3.6-5.0) L 05/04/21 04:48 Chloride 106.6 mmol/L (98-107) 05/04/21 04:48 Carbon Dioxide 25 mmol/L (22-30) 05/04/21 04:48 Anion Gap 17 mmol/L 05/04/21 04:48 BUN 58 mg/dL (7-17) H 05/04/21 04:48 Creatinine 3.4 mg/dL (0.6-1.2) H 05/04/21 04:48 Estimated GFR 16 ml/min 05/04/21 04:48 BUN/Creatinine Ratio 17 % 05/04/21 04:48 Glucose 168 mg/dL (65-100) H 05/04/21 04:48 POC Glucose 148 mg/dL (70-105) H 05/04/21 16:01 Hemoglobin A1c 17.1 % (4-6) H 04/22/21 15:55 Lactic Acid 1.90 mmol/L (0.7-2.0) 04/20/21 19:56 Calcium 9.3 mg/dL (8.4-10.2) 05/04/21 04:48 Phosphorus 5.30 mg/dL (2.5-4.5) H 05/04/21 04:48 Magnesium 1.90 mg/dL (1.7-2.3) 05/04/21 04:48 Iron 62 ug/dL (37-170) 04/24/21 17:29 TIBC 285 mcg/dL (250-450) 04/24/21 17:29 % Saturation 21.75 % 04/24/21 17:29 Transferrin 112 mg/dl (192-382) L 04/24/21 17:29 Total Bilirubin 0.20 mg/dL (0.1-1.2) 05/03/21 04:00 Direct Bilirubin < 0.2 mg/dL (0-0.2) 04/29/21 04:00 Indirect Bilirubin 0.1 mg/dL 04/29/21 04:00 AST 53 units/L (5-40) H 05/03/21 04:00 ALT 55 units/L (7-56) 05/03/21 04:00 Alkaline Phosphatase 149 units/L (35-129) H 05/03/21 04:00 Ammonia 29.0 umol/L (25-60) 04/20/21 17:10 Total Creatine Kinase 1000 units/L (30-135) H 04/27/21 07:43 CK-MB (CK-2) 36.0 ng/mL (0.0-4.0) H 04/20/21 17:10 CK-MB (CK-2) Rel Index 0.9 (0-4) 04/20/21 17:10 Troponin T 0.021 ng/mL (0.00-0.029) 04/20/21 17:10 Serum Total Protein 5.5 g/dL (6.1-8.1) L 04/22/21 08:59 Total Protein 5.2 g/dL (6.3-8.2) L 05/03/21 04:00 Albumin 1.5 g/dL (3.9-5) L 05/03/21 04:00 Albumin/Globulin Ratio 0.4 % 05/03/21 04:00 Btwwt-1-Bzxjtsyif 0.6 g/dL (0.2-0.3) H 04/22/21 08:59 Wkqll-5-Gpjtulmsu 1.0 g/dL (0.5-0.9) H 04/22/21 08:59 Beta Globulins 0.3 g/dL (0.2-0.5) 04/22/21 08:59 Gamma Globulins 0.6 g/dL (0.8-1.7) L 04/22/21 08:59 Abnorm Protein Band 1 see below 04/22/21 08:59 PEP Interpretation see below H 04/22/21 08:59 Triglycerides 80 mg/dL (2-149) 05/04/21 04:48 Cholesterol 90 mg/dL (50-199) 05/04/21 04:48 LDL Cholesterol Direct 51 mg/dL (50-130) 05/04/21 04:48 HDL Cholesterol 24 mg/dL (40-59) L 05/04/21 04:48 Cholesterol/HDL Ratio 3.75 % 05/04/21 04:48 TSH 6.040 mlU/mL (0.270-4.200) H 04/20/21 17:10 Free T4 0.93 ng/dL (0.76-1.46) 04/20/21 17:10 Arterial Blood Glucose 122 mg/dL (65-95) H 05/02/21 04:34 Arterial Blood Ionized Calcium 4.5 mg/dL (4.6-5.3) L 04/28/21 05:18 Urine Color Yellow (Yellow) 04/29/21 13:30 Urine Turbidity Turbid (Clear) 04/29/21 13:30 Urine pH 5.0 (5.0-7.0) 04/29/21 13:30 Ur Specific [place] 1.010 (1.003-1.030) 04/29/21 13:30 Urine Protein 100 mg/dl mg/dL (Negative) 04/29/21 13:30 Urine Glucose (UA) 150 mg/dL (Negative) 04/29/21 13:30 Urine Ketones Neg mg/dL (Negative) 04/29/21 13:30 Urine Blood Lg (Negative) 04/29/21 13:30 Urine Nitrite Neg (Negative) 04/29/21 13:30 Urine Bilirubin Neg (Negative) 04/29/21 13:30 Urine Urobilinogen < 2.0 mg/dL (<2.0) 04/29/21 13:30 Ur Leukocyte Esterase Lg (Negative) 04/29/21 13:30 Urine WBC (Auto) > 182.0 /HPF (0.0-6.0) H 04/29/21 13:30 Urine RBC (Auto) > 182.0 /HPF (0.0-6.0) 04/29/21 13:30 U Epithel Cells (Auto) 4.0 /HPF (0-13.0) 04/29/21 13:30 Urine WBC Clumps 3+ /HPF 04/29/21 13:30 Urine Mucus Few /HPF 04/29/21 13:30 Urine Yeast (Budding) 3+ /HPF 04/29/21 13:30 Urine Osmolality 446 Mosm/kg 04/21/21 08:01 Urine Creatinine 44.3 mg/dL (0.1-20.0) H 04/21/21 08:01 Urine Sodium 71 mmol/L 04/21/21 08:01 Urine Total Protein 12 mg/dL (5-11.8) H 04/21/21 08:01 CSF Appearance Clear 04/29/21 11:45 CSF Color Colorless 04/29/21 11:45 CSF WBC 14 /mm3 (1-10) 04/29/21 11:45 CSF RBC 324 /mm3 (0-0) 04/29/21 11:45 CSF Seg Neutrophils 50.0 % (0-6) 04/29/21 11:45 CSF Lymphocytes % 40.0 % (40-80) 04/29/21 11:45 CSF Reactive Lymphs Not Reportable 04/29/21 11:45 CSF Monocytes % 10.0 % (15-45) 04/29/21 11:45 CSF Eosinophils % Not Reportable 04/29/21 11:45 CSF Basophils Not Reportable 04/29/21 11:45 CSF Pathologist Review C 04/29/21 11:45 CSF Glucose 161 mg/dL 04/29/21 11:45 CSF Total Protein 51 mg/dL 04/29/21 11:45 Plasma/Serum Alcohol < 0.01 % (0-0.07) 04/20/21 17:10 Heparin-induced Plt Ab Negative (Negative) 04/24/21 17:29 UF Heparin High Dose 1 % Release 04/24/21 17:29 EFE UFH Low Dose 0.1 0 % Release 04/24/21 17:29 EFE UFH Low Dose 0.5 0 % Release 04/24/21 17:29 Coronavirus (PCR) Negative (Negative) 04/21/21 Unknown Hepatitis A IgM Ab Non-reactive (NonReactive) 04/27/21 12:49 Hep Bs Antigen Nonreactive (Negative) 04/27/21 12:49 Hep B Core IgM Ab Non-reactive (NonReactive) 04/27/21 12:49 Hepatitis C Antibody Non-reactive (NonReactive) 04/27/21 12:49 Blood Type O POSITIVE 05/02/21 12:00 Antibody Screen Negative 05/02/21 12:00 Crossmatch See Detail 05/02/21 12:00 Microbiology: Microbiology 04/29/21 13:15 Peripheral/Venous Blood Culture - Final NO GROWTH AFTER 5 DAYS Luther/IV: Voiding Method Indwelling Catheter Active Medications - Current Medications Current Medications: Generic Name Dose Route Start Last Admin Trade Name Freq PRN Reason Stop Dose Admin Acetaminophen 650 mg 04/20/21 21:31 05/01/21 18:15 Acetaminophen 325 Mg Tab PO 650 mg Q4H PRN Administration Pain MILD(1-3)/Fever >100.5/TURCIOS Albuterol 2.5 mg 04/22/21 14:49 04/23/21 15:18 Albuterol 2.5 Mg/3 Ml Nebu IH 2.5 mg Q4HRT PRN Administration Shortness Of Breath Lipase/Protease/Amylase 1 each 04/25/21 14:13 Lipase 10,500/Protease 25,000/Amylase 43,750 (Units) Dr Vasquez FEEDTUBE PRN PRN For Clogged Feeding Tube Aspirin 81 mg 05/04/21 10:00 Aspirin 81 Mg Tab Chew FEEDTUBE QDAY AZIZA Atorvastatin Calcium 40 mg 05/04/21 22:00 Atorvastatin 40 Mg Tab FEEDTUBE QHS AZIZA Dextrose 50 ml 04/24/21 11:36 Dextrose 50% In Water (25gm) 50 Ml Syringe IV Q30MIN PRN Hypoglycemia Protocol Famotidine 10 mg 04/27/21 10:00 05/03/21 21:02 Famotidine 10 Mg Tab FEEDTUBE 10 mg BID AZIZA Administration Hydralazine HCl 10 mg 04/24/21 21:22 Hydralazine 20 Mg/1 Ml Inj IV Q4HR PRN elevated BP Hydrophilic Ointment 1 applic 04/26/21 11:16 Lip Therapy Vaseline TP Q2HR PRN Dry Lips NORepinephrine/NS 8 MG-250 ML 8 mg in 250 mls @ 3.75 mls/hr 04/26/21 16:00 05/04/21 06:50 Norepinephrine/Ns 8 Mg-250 Ml (Double Conc) IV 2 mcg/min TITRATE AZIZA 3.75 mls/hr Titration Protocol 2 MCG/MIN MEROPENEM/NS 1 GRAM/100 ML 1 gram in 100 mls @ 100 mls/hr 05/03/21 15:00 05/03/21 14:04 Merrem/Ns 1 Gram/100 Ml IV 100 mls/hr 1500 AZIZA Administration Protocol Sodium Chloride 100 mls @ 999 mls/hr 05/04/21 11:30 Nacl 0.9% IV MITCH PRN Hypotension Insulin Human Lispro 0 unit 04/25/21 18:00 05/04/21 05:22 Insulin Lispro 100 Unit/Ml SUB-Q Not Given Q6HR [facility] Protocol Levothyroxine Sodium 50 mcg 05/03/21 06:00 05/04/21 05:22 Levothyroxine 50 Mcg Tab PO 50 mcg DAILY@0600 [facility] Administration Lorazepam 1 mg 04/26/21 11:15 04/30/21 23:00 Lorazepam 2 Mg/Ml Vial IV 1 mg Q4H PRN Administration Sedation Metoclopramide HCl 5 mg 04/20/21 21:31 Metoclopramide 10 Mg/2 Ml Inj IV Q6H PRN Nausea And Vomiting Midodrine 10 mg 05/04/21 14:00 Midodrine 5 Mg Tab PO TID [facility] Multi-Ingred Cream/Lotion/Oil/Oint 1 applic 04/26/21 11:16 Mineral Oil/Petrolatum, White Ophth Oint 3.5 Gm OU Q4HR PRN Dry Eye(s) Ondansetron HCl 4 mg 04/20/21 21:31 Ondansetron 4 Mg/2 Ml Inj IV Q8H PRN Nausea And Vomiting Senna/Docusate Sodium 1 tab 04/26/21 22:00 05/03/21 21:02 Sennosides/Docusate Sodium 8.6/50 Mg Tab FEEDTUBE Not Given BID [facility] Simple Syrup 15 ml 04/25/21 14:13 Simple Syrup 15 Ml FEEDTUBE PRN PRN Hypoglycemia Simple Syrup 30 ml 04/25/21 14:13 Simple Syrup 15 Ml FEEDTUBE PRN PRN Hypoglycemia Sodium Bicarbonate 325 mg 04/25/21 14:13 04/27/21 13:00 Sodium Bicarbonate 325 Mg Tab FEEDTUBE 325 mg PRN PRN Administration For Clogged Feeding Tube Sodium Bicarbonate 1,300 mg 04/27/21 14:00 05/03/21 21:01 Sodium Bicarbonate 650 Mg Tab PO 1,300 mg TID [facility] Administration Sodium Chloride 10 ml 04/20/21 22:00 05/03/21 21:02 Sodium Chloride 0.9% 10 Ml Flush Syringe IV 10 ml BID AZIZA Administration Sodium Chloride 10 ml 04/20/21 21:31 Sodium Chloride 0.9% 10 Ml Flush Syringe IV PRN PRN LINE FLUSH Nutrition/Malnutrition Assess - Dietary Evaluation Nutrition/Malnutrition Findings: Nutrition Notes Start: 04/21/21 12:15 Freq: Status: Active Protocol: Document 05/04/21 16:15 JOSE (Rec: 05/04/21 16:26 JOSE [id number]) Nutrition Notes Initial or Follow up Brief Note Current Diet TF-Nepro w/CARBSTEADY @ 32 ml/ hr (since 04/29). Height 5 ft 2 in Weight 72.4 kg [place] Body Weight (kg) 50.00 BMI 29.2 Weight change and time frame No body weight change reported . Weight Status Overweight Subjective/Other Information RD consult for routine F/U on TF tolerance. TF continues as prescribed, therefore, well tolerated. Percent of energy/protein needs met: Prescribed TF-Nepro w/ CARBSTEADY @ 32 ml/hr provides for energy/protein needs (1, 389 Kcal/63 g) during LOS, 100 % Kcal; 72% AA. Current % PO Other Minimum of two criteria No #1 Nutrition Diagnosis Inadequate oral intake Diagnosis Progress(for reassessment Continues documentation) Nutrition Intervention Nutrition Support: Continue TF to Nepro w/ CARBSTEADY @ 32 ml/hr. Flush: 140 ml water Q 4 hr, or as per MD. % RDI: 100% Kcal; 72% AA. Goal #1 Provide at least 75% of energy /protein needs through Enteral Feeding during LOS. Follow-Up By: 05/11/21 Additional Comments Continue monitoring TF tolerance and BM. <TACHO RUBALCAVA - Last Filed: 05/14/21 13:26> Assessment and Plan Assessment and plan: I saw and evaluated the patient. Discussed with the nurse practitioner and agree with their findings and plan as documented in this note. Hospitalist Physical - Constitutional Vitals: Temp Pulse Resp BP Pulse Ox 99.9 F H 102 H 23 108/55 100 05/14/21 11:22 05/14/21 12:31 05/14/21 12:31 05/14/21 12:31 05/14/21 12:31 HEART Score - HEART Score Troponin: Troponin T 0.021 ng/mL (0.00-0.029) 04/20/21 17:10 Results - Labs CBC & Chem 7: 05/14/21 04:43 05/14/21 04:43 Labs: Laboratory Last Values WBC 10.1 K/mm3 (4.5-11.0) 05/14/21 04:43 RBC 3.02 M/mm3 (3.65-5.03) L 05/14/21 04:43 Hgb 8.3 gm/dl (10.1-14.3) L 05/14/21 04:43 Hct 25.6 % (30.3-42.9) L 05/14/21 04:43 MCV 85 fl (79-97) 05/14/21 04:43 MCH 28 pg (28-32) 05/14/21 04:43 MCHC 33 % (30-34) 05/14/21 04:43 RDW 15.5 % (13.2-15.2) H 05/14/21 04:43 Plt Count 482 K/mm3 (140-440) H 05/14/21 04:43 Add Manual Diff Complete 04/28/21 04:00 Total Counted 100 04/28/21 04:00 Seg Neutrophils % Testing Manager 04/28/21 04:00 Seg Neuts % (Manual) 77.0 % (40.0-70.0) H 04/26/21 09:33 Band Neutrophils % 2.0 % 04/28/21 04:00 Lymphocytes % (Manual) 1.0 % (13.4-35.0) L 04/28/21 04:00 Reactive Lymphs % (Man) 0 % 04/28/21 04:00 Monocytes % (Manual) 1.0 % (0.0-7.3) 04/28/21 04:00 Eosinophils % (Manual) 3.0 % (0.0-4.3) 04/28/21 04:00 Metamyelocytes % 1.0 % 04/28/21 04:00 Myelocytes % 0 % 04/28/21 04:00 Promyelocytes % 0 % 04/28/21 04:00 Blast Cells % 0 % 04/28/21 04:00 Nucleated RBC % 4.0 % (0.0-0.9) H 04/28/21 04:00 Seg Neutrophils # Man 11.6 K/mm3 (1.8-7.7) H 04/28/21 04:00 Band Neutrophils # 0.3 K/mm3 04/28/21 04:00 Lymphocytes # (Manual) 0.1 K/mm3 (1.2-5.4) L 04/28/21 04:00 Abs React Lymphs (Man) 0.0 K/mm3 04/28/21 04:00 Monocytes # (Manual) 0.1 K/mm3 (0.0-0.8) 04/28/21 04:00 Eosinophils # (Manual) 0.4 K/mm3 (0.0-0.4) 04/28/21 04:00 Basophils # (Manual) 0.0 K/mm3 (0.0-0.1) 04/28/21 04:00 Metamyelocytes # 0.1 K/mm3 04/28/21 04:00 Myelocytes # 0.0 K/mm3 04/28/21 04:00 Promyelocytes # 0.0 K/mm3 04/28/21 04:00 Blast Cells # 0.0 K/mm3 04/28/21 04:00 WBC Morphology Not Reportable 04/28/21 04:00 Hypersegmented Neuts Not Reportable 04/28/21 04:00 Hyposegmented Neuts Not Reportable 04/28/21 04:00 Hypogranular Neuts Not Reportable 04/28/21 04:00 Smudge Cells Not Reportable 04/28/21 04:00 Toxic Granulation Not Reportable 04/28/21 04:00 Toxic Vacuolation Not Reportable 04/28/21 04:00 Dohle Bodies Not Reportable 04/28/21 04:00 Pelger-Huet Anomaly Not Reportable 04/28/21 04:00 Moni Rods Not Reportable 04/28/21 04:00 Platelet Estimate Consistent w auto 04/28/21 04:00 Clumped Platelets Not Reportable 04/28/21 04:00 Plt Clumps, EDTA Not Reportable 04/28/21 04:00 Large Platelets Few 04/28/21 04:00 Giant Platelets Not Reportable 04/28/21 04:00 Platelet Satelliting Not Reportable 04/28/21 04:00 Plt Morphology Comment Not Reportable 04/28/21 04:00 RBC Morphology Not Reportable 04/28/21 04:00 Dimorphic RBCs Not Reportable 04/28/21 04:00 Polychromasia Not Reportable 04/28/21 04:00 Hypochromasia Not Reportable 04/28/21 04:00 Poikilocytosis Not Reportable 04/28/21 04:00 Anisocytosis Not Reportable 04/28/21 04:00 Microcytosis Not Reportable 04/28/21 04:00 Macrocytosis Not Reportable 04/28/21 04:00 Spherocytes Not Reportable 04/28/21 04:00 Pappenheimer Bodies Not Reportable 04/28/21 04:00 Sickle Cells Not Reportable 04/28/21 04:00 Target Cells 1+ 04/28/21 04:00 Tear Drop Cells Not Reportable 04/28/21 04:00 Ovalocytes Not Reportable 04/28/21 04:00 Helmet Cells Not Reportable 04/28/21 04:00 [place] Bodies Not Reportable 04/28/21 04:00 [place] Rings Not Reportable 04/28/21 04:00 [place] Cells Not Reportable 04/28/21 04:00 Bite Cells Not Reportable 04/28/21 04:00 Crenated Cell Not Reportable 04/28/21 04:00 Elliptocytes Not Reportable 04/28/21 04:00 Acanthocytes (Spur) Not Reportable 04/28/21 04:00 Rouleaux Not Reportable 04/28/21 04:00 Hemoglobin C Crystals Not Reportable 04/28/21 04:00 Schistocytes Not Reportable 04/28/21 04:00 Malaria parasites Not Reportable 04/28/21 04:00 Herrera Bodies Not Reportable 04/28/21 04:00 Hem Pathologist Commnt No 04/28/21 04:00 PT 14.7 Sec. (12.2-14.9) 05/13/21 04:24 INR 1.04 (0.87-1.13) 05/13/21 04:24 APTT 36.6 Sec. (24.2-36.6) 04/28/21 05:00 Heparin Anti-Xa, Unfract Negative (Negative) 04/24/21 17:29 ABG pH 7.487 (7.320-7.450) H 05/02/21 04:34 POC ABG pCO2 35.3 mmHg (32.0-48.0) 05/02/21 04:34 ABG pCO2 31.6 mm Hg 04/21/21 15:47 POC ABG pO2 78.6 mmHg (83-108) L 05/02/21 04:34 ABG pO2 168.1 mm Hg (80.0-90.0) H 04/21/21 15:47 POC ABG HCO3 26.1 05/02/21 04:34 ABG HCO3 23.3 mmol/L (20.0-26.0) 04/21/21 15:47 ABG O2 Saturation 96.0 (0-100) 05/02/21 04:34 ABG O2 Content 12.7 (0.0-44) 04/21/21 15:47 POC ABG Base Excess 2.9 05/02/21 04:34 ABG Base Excess 0.3 mmol/L (-2.0-3.0) 04/21/21 15:47 ABG Hemoglobin 11.5 (12.0-17.5) L 05/02/21 04:34 ABG Oxyhemoglobin 95.1 (94-98) 05/02/21 04:34 ABG Carboxyhemoglobin 1.0 % (0.0-5.0) 04/21/21 15:47 ABG Methemoglobin 0.3 (0.0-1.5) 05/02/21 04:34 ABG Sodium 138.6 mmol/L (136.0-145.0) 05/02/21 04:34 ABG Potassium 3.4 mmol/L (3.40-4.50) 05/02/21 04:34 ABG Chloride 105.0 mmol/L (98-107) 05/02/21 04:34 ABG Glucose 122 mg/dL (65-95) H 05/02/21 04:34 VBG pH 7.397 (7.320-7.420) 04/20/21 17:10 Oxyhemoglobin 97.5 % (95.0-99.0) 04/21/21 15:47 Carboxyhemoglobin 0.6 (0.5-1.5) 05/02/21 04:34 FiO2 100 % 04/21/21 15:47 FiO2 % 40.0 05/02/21 04:34 Sodium 138 mmol/L (137-145) 05/14/21 04:43 Potassium 4.0 mmol/L (3.6-5.0) 05/14/21 04:43 Chloride 104.1 mmol/L (98-107) 05/14/21 04:43 Carbon Dioxide 23 mmol/L (22-30) 05/14/21 04:43 Anion Gap 15 mmol/L 05/14/21 04:43 BUN 29 mg/dL (7-17) H 05/14/21 04:43 Creatinine 1.2 mg/dL (0.6-1.2) 05/14/21 04:43 Estimated GFR 52 ml/min 05/14/21 04:43 BUN/Creatinine Ratio 24 % 05/14/21 04:43 Glucose 192 mg/dL (65-100) H 05/14/21 04:43 POC Glucose 215 mg/dL (70-105) H 05/14/21 10:59 Hemoglobin A1c 17.1 % (4-6) H 04/22/21 15:55 Lactic Acid 1.90 mmol/L (0.7-2.0) 04/20/21 19:56 Calcium 8.1 mg/dL (8.4-10.2) L 05/14/21 04:43 Phosphorus 3.20 mg/dL (2.5-4.5) 05/14/21 04:43 Magnesium 2.20 mg/dL (1.7-2.3) 05/14/21 04:43 Iron 62 ug/dL (37-170) 04/24/21 17:29 TIBC 285 mcg/dL (250-450) 04/24/21 17:29 % Saturation 21.75 % 04/24/21 17:29 Transferrin 112 mg/dl (192-382) L 04/24/21 17:29 Total Bilirubin 0.20 mg/dL (0.1-1.2) 05/03/21 04:00 Direct Bilirubin < 0.2 mg/dL (0-0.2) 04/29/21 04:00 Indirect Bilirubin 0.1 mg/dL 04/29/21 04:00 AST 53 units/L (5-40) H 05/03/21 04:00 ALT 55 units/L (7-56) 05/03/21 04:00 Alkaline Phosphatase 149 units/L (35-129) H 05/03/21 04:00 Ammonia 29.0 umol/L (25-60) 04/20/21 17:10 Total Creatine Kinase 1000 units/L (30-135) H 04/27/21 07:43 CK-MB (CK-2) 36.0 ng/mL (0.0-4.0) H 04/20/21 17:10 CK-MB (CK-2) Rel Index 0.9 (0-4) 04/20/21 17:10 Troponin T 0.021 ng/mL (0.00-0.029) 04/20/21 17:10 Serum Total Protein 5.5 g/dL (6.1-8.1) L 04/22/21 08:59 Total Protein 5.2 g/dL (6.3-8.2) L 05/03/21 04:00 Albumin 1.5 g/dL (3.9-5) L 05/03/21 04:00 Albumin/Globulin Ratio 0.4 % 05/03/21 04:00 Ehejp-7-Ymggufhor 0.6 g/dL (0.2-0.3) H 04/22/21 08:59 Msdag-4-Wrrcywexu 1.0 g/dL (0.5-0.9) H 04/22/21 08:59 Beta Globulins 0.3 g/dL (0.2-0.5) 04/22/21 08:59 Gamma Globulins 0.6 g/dL (0.8-1.7) L 04/22/21 08:59 Abnorm Protein Band 1 see below 04/22/21 08:59 PEP Interpretation see below H 04/22/21 08:59 Triglycerides 80 mg/dL (2-149) 05/04/21 04:48 Cholesterol 90 mg/dL (50-199) 05/04/21 04:48 LDL Cholesterol Direct 51 mg/dL (50-130) 05/04/21 04:48 HDL Cholesterol 24 mg/dL (40-59) L 05/04/21 04:48 Cholesterol/HDL Ratio 3.75 % 05/04/21 04:48 Serotonin Release Assay See scanned result 04/24/21 17:29 TSH 6.040 mlU/mL (0.270-4.200) H 04/20/21 17:10 Free T4 0.93 ng/dL (0.76-1.46) 04/20/21 17:10 Arterial Blood Glucose 122 mg/dL (65-95) H 05/02/21 04:34 Arterial Blood Ionized Calcium 4.5 mg/dL (4.6-5.3) L 04/28/21 05:18 Urine Color Yellow (Yellow) 04/29/21 13:30 Urine Turbidity Turbid (Clear) 04/29/21 13:30 Urine pH 5.0 (5.0-7.0) 04/29/21 13:30 Ur Specific [place] 1.010 (1.003-1.030) 04/29/21 13:30 Urine Protein 100 mg/dl mg/dL (Negative) 04/29/21 13:30 Urine Glucose (UA) 150 mg/dL (Negative) 04/29/21 13:30 Urine Ketones Neg mg/dL (Negative) 04/29/21 13:30 Urine Blood Lg (Negative) 04/29/21 13:30 Urine Nitrite Neg (Negative) 04/29/21 13:30 Urine Bilirubin Neg (Negative) 04/29/21 13:30 Urine Urobilinogen < 2.0 mg/dL (<2.0) 04/29/21 13:30 Ur Leukocyte Esterase Lg (Negative) 04/29/21 13:30 Urine WBC (Auto) > 182.0 /HPF (0.0-6.0) H 04/29/21 13:30 Urine RBC (Auto) > 182.0 /HPF (0.0-6.0) 04/29/21 13:30 U Epithel Cells (Auto) 4.0 /HPF (0-13.0) 04/29/21 13:30 Urine WBC Clumps 3+ /HPF 04/29/21 13:30 Urine Mucus Few /HPF 04/29/21 13:30 Urine Yeast (Budding) 3+ /HPF 04/29/21 13:30 Urine Osmolality 446 Mosm/kg 04/21/21 08:01 Urine Total Volume 1700 ml 05/08/21 09:34 Urine Creatinine 56.0 mg/dL (0.1-20.0) H 05/08/21 09:34 Ur Creatinine 24 Hour 1.0 (0.8-2.8) 05/08/21 09:34 Urine Sodium 71 mmol/L 04/21/21 08:01 Urine Total Protein 12 mg/dL (5-11.8) H 04/21/21 08:01 CSF Appearance Clear 04/29/21 11:45 CSF Color Colorless 04/29/21 11:45 CSF WBC 14 /mm3 (1-10) 04/29/21 11:45 CSF RBC 324 /mm3 (0-0) 04/29/21 11:45 CSF Seg Neutrophils 50.0 % (0-6) 04/29/21 11:45 CSF Lymphocytes % 40.0 % (40-80) 04/29/21 11:45 CSF Reactive Lymphs Not Reportable 04/29/21 11:45 CSF Monocytes % 10.0 % (15-45) 04/29/21 11:45 CSF Eosinophils % Not Reportable 04/29/21 11:45 CSF Basophils Not Reportable 04/29/21 11:45 CSF Pathologist Review C 04/29/21 11:45 CSF Glucose 161 mg/dL 04/29/21 11:45 CSF Total Protein 51 mg/dL 04/29/21 11:45 Plasma/Serum Alcohol < 0.01 % (0-0.07) 04/20/21 17:10 Heparin-induced Plt Ab Negative (Negative) 04/24/21 17:29 UF Heparin High Dose 1 % Release 04/24/21 17:29 EFE UFH Low Dose 0.1 0 % Release 04/24/21 17:29 EFE UFH Low Dose 0.5 0 % Release 04/24/21 17:29 Coronavirus (PCR) Negative (Negative) 04/21/21 Unknown Hepatitis A IgM Ab Non-reactive (NonReactive) 04/27/21 12:49 Hep Bs Antigen Nonreactive (Negative) 04/27/21 12:49 Hep B Core IgM Ab Non-reactive (NonReactive) 04/27/21 12:49 Hepatitis C Antibody Non-reactive (NonReactive) 04/27/21 12:49 Blood Type O POSITIVE 05/02/21 12:00 Antibody Screen Negative 05/02/21 12:00 Crossmatch See Detail 05/02/21 12:00 Microbiology: Microbiology 05/02/21 Unknown Urine,Catheterized - Indwelling Catheter Urine Culture - Final Roselyn Tropicalis Luther/IV: Voiding Method Indwelling Catheter Active Medications - Current Medications Current Medications: Generic Name Dose Route Start Last Admin Trade Name Freq PRN Reason Stop Dose Admin Acetaminophen 650 mg 04/20/21 21:31 05/14/21 09:50 Acetaminophen 325 Mg Tab PO 650 mg Q4H PRN Administration Pain MILD(1-3)/Fever >100.5/TURCIOS Albumin Human 25 gm 05/06/21 16:06 05/06/21 16:21 Albumin Human 25% (25 Gm/100 Ml) Inj IV 25 gm MITCH PRN Administration Hypotension Albuterol 2.5 mg 04/22/21 14:49 04/23/21 15:18 Albuterol 2.5 Mg/3 Ml Nebu IH 2.5 mg Q4HRT PRN Administration Shortness Of Breath Amlodipine Besylate 5 mg 05/12/21 10:00 05/14/21 09:49 Amlodipine 5 Mg Tab PO 5 mg QDAY AZIZA Administration Lipase/Protease/Amylase 1 each 04/25/21 14:13 Lipase 10,500/Protease 25,000/Amylase 43,750 (Units) Dr Vasquez FEEDTUBE PRN PRN For Clogged Feeding Tube Aspirin 81 mg 05/04/21 10:00 05/14/21 09:50 Aspirin 81 Mg Tab Chew FEEDTUBE 81 mg QDAY AZIZA Administration Atorvastatin Calcium 40 mg 05/04/21 22:00 05/13/21 21:39 Atorvastatin 40 Mg Tab FEEDTUBE 40 mg QHS AZIZA Administration Dextrose 50 ml 04/24/21 11:36 Dextrose 50% In Water (25gm) 50 Ml Syringe IV Q30MIN PRN Hypoglycemia Protocol Famotidine 10 mg 04/27/21 10:00 05/14/21 09:50 Famotidine 10 Mg Tab FEEDTUBE 10 mg BID AZIZA Administration Heparin Sodium (Porcine) 5,000 unit 05/10/21 22:00 05/14/21 09:50 Heparin 5,000 Unit/1 Ml Vial SUB-Q 5,000 unit Q12HR AZIZA Administration Hydrophilic Ointment 1 applic 04/26/21 11:16 Lip Therapy Vaseline TP Q2HR PRN Dry Lips Sodium Chloride 1,000 mls @ 100 mls/hr 05/14/21 08:30 05/14/21 09:53 Nacl 0.9% 1000 Ml IV 05/14/21 18:29 100 mls/hr DIRECT AZIZA Administration Insulin Human Lispro 0 unit 04/25/21 18:00 05/14/21 12:05 Insulin Lispro 100 Unit/Ml SUB-Q 4 unit Q6HR AZIZA Administration Protocol Labetalol HCl 20 mg 05/12/21 11:34 05/12/21 21:35 Labetalol 20 Mg/4 Ml Inj IV 20 mg Q4H PRN Administration SBP >/=170 Levothyroxine Sodium 50 mcg 05/03/21 06:00 05/14/21 05:27 Levothyroxine 50 Mcg Tab PO 50 mcg DAILY@0600 AZIZA Administration Lorazepam 1 mg 04/26/21 11:15 05/12/21 16:27 Lorazepam 2 Mg/Ml Vial IV 1 mg Q4H PRN Administration Sedation Metoclopramide HCl 5 mg 04/20/21 21:31 Metoclopramide 10 Mg/2 Ml Inj IV Q6H PRN Nausea And Vomiting Multi-Ingred Cream/Lotion/Oil/Oint 1 applic 04/26/21 11:16 Mineral Oil/Petrolatum, White Ophth Oint 3.5 Gm OU Q4HR PRN Dry Eye(s) Ondansetron HCl 4 mg 04/20/21 21:31 Ondansetron 4 Mg/2 Ml Inj IV Q8H PRN Nausea And Vomiting Senna/Docusate Sodium 1 tab 04/26/21 22:00 05/14/21 09:50 Sennosides/Docusate Sodium 8.6/50 Mg Tab FEEDTUBE 1 tab BID AZIZA Administration Simple Syrup 15 ml 04/25/21 14:13 Simple Syrup 15 Ml FEEDTUBE PRN PRN Hypoglycemia Simple Syrup 30 ml 04/25/21 14:13 Simple Syrup 15 Ml FEEDTUBE PRN PRN Hypoglycemia Sodium Bicarbonate 325 mg 04/25/21 14:13 04/27/21 13:00 Sodium Bicarbonate 325 Mg Tab FEEDTUBE 325 mg PRN PRN Administration For Clogged Feeding Tube Sodium Bicarbonate 1,300 mg 04/27/21 14:00 05/14/21 13:07 Sodium Bicarbonate 650 Mg Tab PO 1,300 mg TID AZIZA Administration Sodium Chloride 10 ml 04/20/21 22:00 05/14/21 09:51 Sodium Chloride 0.9% 10 Ml Flush Syringe IV 10 ml BID AZIZA Administration Sodium Chloride 10 ml 04/20/21 21:31 Sodium Chloride 0.9% 10 Ml Flush Syringe IV PRN PRN LINE FLUSH Nutrition/Malnutrition Assess - Dietary Evaluation Nutrition/Malnutrition Findings: Nutrition Notes Start: 04/21/21 12:15 Freq: Status: Active Protocol: Document 05/13/21 15:36 TAMMY (Rec: 05/13/21 15:47 TAMMY [id number]) Nutrition Notes Initial or Follow up Reassessment Current Diagnosis Sepsis,Respiratory Failure, Stroke Other Pertinent Diagnosis Acute metabolic encephalopathy , pneu, UTI Current Diet NPO Labs/Tests BUN 30 Mg 1.6 Pertinent Medications Mag sulfate x 1 dose Height 5 ft 2 in Weight 72.4 kg [place] Body Weight (kg) 50.00 BMI 29.2 Weight Status Overweight Subjective/Other Information Pt remains on vent support. TF off; pt scheduled for trach and PEG placement today. Unable to place PEG sec to suspected anatomical abnormality. Interventional radiology consulted for PEG placement. Per nephrology, SYED resolving; no indication for HD as VasCath has been removed. Minimum of two criteria No #1 Nutrition Diagnosis Inadequate oral intake Diagnosis Progress(for reassessment Continues documentation) Is patient on ventilator? Yes Is Patient Ambulatory and/or Out of Bed No REE-([place] Jeor-confined to bed) [phone] Calculation Used for Recommendations [place] Jeor Additional Notes Pro needs 1.2-2g/k-145g/ day Fluid needs 1ml/kcal Nutrition Intervention Nutrition Support: When feasible, resume TF, but change formula to Glucerna 1.2 at 50ml/hr with 80ml water flush q4h. Goal #1 Resume TF to meet nutrient needs Follow-Up By: 05/16/21 Additional Comments F/U: PEG placement, TF restart with Glucerna 1.2, vent status
[2021-05-05] MEDS: INSULIN LISPRO 100 UNIT/ML SUB-Q SCH ×4 (00:04→18:26)
[2021-05-05] MEDS: LEVOTHYROXINE 50 MCG TAB PO SCH (05:28)
[2021-05-05 05:47] LABS: Calcium 8.2 mg/dL (8.4-10.2)
[2021-05-05] MEDS: MIDODRINE 5 MG TAB PO SCH ×3 (09:15→21:30)
[2021-05-05] MEDS: SODIUM BICARBONATE 650 MG TAB PO SCH ×3 (09:15→21:30)
--- NOTE | 2021-05-05 09:27 | Progress Note ---
Assessment and Plan (1) Acute metabolic encephalopathy (2) Diabetic hyperosmolar non-ketotic state 3) SYED (acute kidney injury) (4) Dehydration (5) Hypernatremia (6) Rhabdomyolysis (7) Hypernatremia 8) GERD (gastroesophageal reflux disease) (9) Metabolic acidosis (10) Leukocytosis no indication for HD today will assess dialysis needs daily, ordered for tomorrow due to low UOP Intubated on Vent. renally dose meds Strict I&O In ICU Subjective Date of service: 05/05/21 Principal diagnosis: Acute respiratory failure Interval history: tolerated HD yesterday Objective - Vital Signs Vital signs: Vital Signs - 12hr 05/04/21 05/04/21 05/04/21 21:30 21:45 22:00 Temperature Pulse Rate 78 79 77 Pulse Rate [ From Monitor] Respiratory 14 14 14 Rate Blood Pressure 131/49 149/56 136/48 O2 Sat by Pulse 94 95 97 Oximetry 05/04/21 05/04/21 05/04/21 22:15 22:30 22:45 Temperature Pulse Rate 77 78 77 Pulse Rate [ From Monitor] Respiratory 14 14 14 Rate Blood Pressure 134/44 135/54 146/50 O2 Sat by Pulse 98 98 97 Oximetry 05/04/21 05/04/21 05/04/21 23:00 23:15 23:31 Temperature Pulse Rate 89 81 85 Pulse Rate [ From Monitor] Respiratory 24 14 22 Rate Blood Pressure 123/57 130/55 130/55 O2 Sat by Pulse 98 97 97 Oximetry 05/04/21 05/05/21 05/05/21 23:45 00:00 00:01 Temperature 98.0 F Pulse Rate 81 84 74 Pulse Rate [ 78 From Monitor] Respiratory 23 18 14 Rate Blood Pressure 133/61 87/42 O2 Sat by Pulse 97 97 95 Oximetry 05/05/21 05/05/21 05/05/21 00:05 00:10 00:15 Temperature Pulse Rate 81 74 90 Pulse Rate [ From Monitor] Respiratory 16 21 Rate Blood Pressure 126/57 133/61 118/65 O2 Sat by Pulse 98 96 98 Oximetry 05/05/21 05/05/21 05/05/21 00:30 00:45 01:00 Temperature Pulse Rate 79 83 79 Pulse Rate [ From Monitor] Respiratory 14 19 14 Rate Blood Pressure 130/54 125/61 131/59 O2 Sat by Pulse 98 98 98 Oximetry 05/05/21 05/05/21 05/05/21 01:15 01:30 01:45 Temperature Pulse Rate 79 82 81 Pulse Rate [ From Monitor] Respiratory 16 19 15 Rate Blood Pressure 118/56 115/62 121/55 O2 Sat by Pulse 98 98 98 Oximetry 05/05/21 05/05/21 05/05/21 02:00 02:15 02:30 Temperature Pulse Rate 83 83 83 Pulse Rate [ From Monitor] Respiratory 15 20 20 Rate Blood Pressure 117/60 125/69 112/61 O2 Sat by Pulse 98 98 98 Oximetry 05/05/21 05/05/21 05/05/21 02:45 03:00 03:15 Temperature Pulse Rate 83 75 77 Pulse Rate [ From Monitor] Respiratory 20 14 14 Rate Blood Pressure 120/60 99/52 99/52 O2 Sat by Pulse 97 96 97 Oximetry 05/05/21 05/05/21 05/05/21 03:30 03:45 04:00 Temperature 97.1 F L Pulse Rate 76 79 Pulse Rate [ 76 From Monitor] Respiratory 14 16 18 Rate Blood Pressure 94/53 94/53 O2 Sat by Pulse 96 98 97 Oximetry 05/05/21 05/05/21 05/05/21 04:01 04:03 04:15 Temperature Pulse Rate 83 78 74 Pulse Rate [ From Monitor] Respiratory 14 14 Rate Blood Pressure 112/51 129/57 89/52 O2 Sat by Pulse 99 98 97 Oximetry 05/05/21 05/05/21 05/05/21 04:31 04:45 05:00 Temperature Pulse Rate 82 80 86 Pulse Rate [ From Monitor] Respiratory 25 H 15 22 Rate Blood Pressure 114/51 132/64 135/66 O2 Sat by Pulse 98 98 98 Oximetry 05/05/21 05/05/21 05/05/21 05:15 05:30 05:45 Temperature Pulse Rate 85 83 80 Pulse Rate [ From Monitor] Respiratory 16 23 14 Rate Blood Pressure 127/65 119/59 140/63 O2 Sat by Pulse 98 99 98 Oximetry 05/05/21 05/05/21 05/05/21 06:01 06:15 06:30 Temperature Pulse Rate 73 76 81 Pulse Rate [ From Monitor] Respiratory 14 14 16 Rate Blood Pressure 101/47 125/63 135/69 O2 Sat by Pulse 96 98 98 Oximetry 05/05/21 05/05/21 05/05/21 06:45 07:00 07:15 Temperature Pulse Rate 82 75 84 Pulse Rate [ From Monitor] Respiratory 16 14 18 Rate Blood Pressure 132/65 122/58 126/70 O2 Sat by Pulse 99 98 98 Oximetry 05/05/21 05/05/21 05/05/21 07:30 07:45 08:00 Temperature 97.9 F Pulse Rate 78 82 83 Pulse Rate [ 83 From Monitor] Respiratory 18 15 22 Rate Blood Pressure 110/65 107/65 113/64 O2 Sat by Pulse 98 98 97 Oximetry 05/05/21 05/05/21 05/05/21 08:15 08:31 08:45 Temperature Pulse Rate 82 77 83 Pulse Rate [ From Monitor] Respiratory 33 H 14 18 Rate Blood Pressure 113/64 134/58 132/69 O2 Sat by Pulse 100 97 96 Oximetry 05/05/21 09:00 Temperature Pulse Rate 80 Pulse Rate [ From Monitor] Respiratory 14 Rate Blood Pressure 130/61 O2 Sat by Pulse 96 Oximetry - Lab 05/04/21 04:48 05/05/21 04:00 Most recent lab results ABG pH 7.487 (7.320-7.450) H 05/02/21 04:34 ABG pCO2 31.6 mm Hg 04/21/21 15:47 ABG pO2 168.1 mm Hg (80.0-90.0) H 04/21/21 15:47 ABG HCO3 23.3 mmol/L (20.0-26.0) 04/21/21 15:47 ABG O2 Saturation 96.0 (0-100) 05/02/21 04:34 Calcium 8.2 mg/dL (8.4-10.2) L 05/05/21 04:00 Phosphorus 4.40 mg/dL (2.5-4.5) 05/05/21 04:00 Magnesium 1.70 mg/dL (1.7-2.3) 05/05/21 04:00 Urine Creatinine 44.3 mg/dL (0.1-20.0) H 04/21/21 08:01 Urine Sodium 71 mmol/L 04/21/21 08:01 Urine Total Protein 12 mg/dL (5-11.8) H 04/21/21 08:01 Medications & Allergies - Medications Allergies/Adverse Reactions: Allergies No Known Allergies Allergy (Unverified 04/20/21 14:35) Active Medications: Generic Name Dose Route Start Last Admin Trade Name Freq PRN Reason Stop Dose Admin Acetaminophen 650 mg 04/20/21 21:31 05/01/21 18:15 Acetaminophen 325 Mg Tab PO 650 mg Q4H PRN Administration Pain MILD(1-3)/Fever >100.5/TURCIOS Albuterol 2.5 mg 04/22/21 14:49 04/23/21 15:18 Albuterol 2.5 Mg/3 Ml Nebu IH 2.5 mg Q4HRT PRN Administration Shortness Of Breath Lipase/Protease/Amylase 1 each 04/25/21 14:13 Lipase 10,500/Protease 25,000/Amylase 43,750 (Units) Dr Vasquez FEEDTUBE PRN PRN For Clogged Feeding Tube Aspirin 81 mg 05/04/21 10:00 05/04/21 10:43 Aspirin 81 Mg Tab Chew FEEDTUBE Not Given QDAY AZIZA Atorvastatin Calcium 40 mg 05/04/21 22:00 05/04/21 21:32 Atorvastatin 40 Mg Tab FEEDTUBE 40 mg QHS AZIZA Administration Dextrose 50 ml 04/24/21 11:36 Dextrose 50% In Water (25gm) 50 Ml Syringe IV Q30MIN PRN Hypoglycemia Protocol Famotidine 10 mg 04/27/21 10:00 05/04/21 21:33 Famotidine 10 Mg Tab FEEDTUBE 10 mg BID AZIZA Administration Hydralazine HCl 10 mg 04/24/21 21:22 Hydralazine 20 Mg/1 Ml Inj IV Q4HR PRN elevated BP Hydrophilic Ointment 1 applic 04/26/21 11:16 Lip Therapy Vaseline TP Q2HR PRN Dry Lips NORepinephrine/NS 8 MG-250 ML 8 mg in 250 mls @ 3.75 mls/hr 04/26/21 16:00 05/04/21 21:34 Norepinephrine/Ns 8 Mg-250 Ml (Double Conc) IV 0 mcg/min TITRATE AZIZA 0 mls/hr Titration Protocol 2 MCG/MIN MEROPENEM/NS 1 GRAM/100 ML 1 gram in 100 mls @ 100 mls/hr 05/03/21 15:00 05/04/21 15:50 Merrem/Ns 1 Gram/100 Ml IV 100 mls/hr 1500 AZIZA Administration Protocol Sodium Chloride 100 mls @ 999 mls/hr 05/04/21 11:30 Nacl 0.9% IV MITCH PRN Hypotension Insulin Human Lispro 0 unit 04/25/21 18:00 05/05/21 05:29 Insulin Lispro 100 Unit/Ml SUB-Q Not Given Q6HR [facility] Protocol Levothyroxine Sodium 50 mcg 05/03/21 06:00 05/05/21 05:28 Levothyroxine 50 Mcg Tab PO 50 mcg DAILY@0600 [facility] Administration Lorazepam 1 mg 04/26/21 11:15 04/30/21 23:00 Lorazepam 2 Mg/Ml Vial IV 1 mg Q4H PRN Administration Sedation Metoclopramide HCl 5 mg 04/20/21 21:31 Metoclopramide 10 Mg/2 Ml Inj IV Q6H PRN Nausea And Vomiting Midodrine 10 mg 05/04/21 14:00 05/05/21 09:15 Midodrine 5 Mg Tab PO Not Given TID [facility] Multi-Ingred Cream/Lotion/Oil/Oint 1 applic 04/26/21 11:16 Mineral Oil/Petrolatum, White Ophth Oint 3.5 Gm OU Q4HR PRN Dry Eye(s) Ondansetron HCl 4 mg 04/20/21 21:31 Ondansetron 4 Mg/2 Ml Inj IV Q8H PRN Nausea And Vomiting Senna/Docusate Sodium 1 tab 04/26/21 22:00 05/04/21 21:33 Sennosides/Docusate Sodium 8.6/50 Mg Tab FEEDTUBE Not Given BID AZIZA Simple Syrup 15 ml 04/25/21 14:13 Simple Syrup 15 Ml FEEDTUBE PRN PRN Hypoglycemia Simple Syrup 30 ml 04/25/21 14:13 Simple Syrup 15 Ml FEEDTUBE PRN PRN Hypoglycemia Sodium Bicarbonate 325 mg 04/25/21 14:13 04/27/21 13:00 Sodium Bicarbonate 325 Mg Tab FEEDTUBE 325 mg PRN PRN Administration For Clogged Feeding Tube Sodium Bicarbonate 1,300 mg 04/27/21 14:00 05/05/21 09:15 Sodium Bicarbonate 650 Mg Tab PO Not Given TID [facility] Sodium Chloride 10 ml 04/20/21 22:00 05/04/21 21:33 Sodium Chloride 0.9% 10 Ml Flush Syringe IV 10 ml BID AZIZA Administration Sodium Chloride 10 ml 04/20/21 21:31 Sodium Chloride 0.9% 10 Ml Flush Syringe IV PRN PRN LINE FLUSH
--- NOTE | 2021-05-05 10:40 | Progress Note ---
Assessment and Plan Assessment and Plan Assessment and plan: This is a 80-year-old female alf resident with GERD, hypothyroidism, hyperlipidemia, schizophrenia and dementia admitted with hypothermia, hyponatrem ia, hypokalemia, lactic acidosis, acute kidney injury, rhabdomyolysis and hyperosmolar nonketotic state. 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 Brain she is with right side weakness -- more awake slightly interactive -MRA brain and neck not done -EEG not done -LINCOLN pending MRA evaluation -start ASA 81 mg and lipitor 40 mg -LDL is #51 -cardiac monitering -SQ heparine # Hypotension -Vasopressor support with Levophed -MAP goal above 65 -Blood pressure monitoring per protocol -Home amlodipine 10 mg on hold # Acute hypoxic respiratory failure -s/p Bipap and ventimask -s/p bronchoscopy on 04/26 -Intubated 04/26 with 7.5 oett at 22 lips -Repeat CXR shows increased interstitial prominence of densities in bilateral lungs # Hypoalbuminemia, transaminitis -Presented with transaminitis -Trend LFTs # Severe hypernatremia (resolved), hyperchloremia (resolved), acute kidney injury likely secondary to vasomotor nephropathy, urinary retention, rhabdomyolysis (resolved) -HD initiated 04/27 -Avoid nephrotoxic medications -Trend BMP, CK -Renally dose medications -renal US WNL per read # Sepsis likely 2/2 UTI and PNA -COVID-19 PCR negative -04/26/2021 sputum culture: Roselyn nonalbicans -04/29/2021 UA showed significant pyuria. -Lumbar puncture with CSF showing 14 WBC, 324 RBC, glucose 161, protein 51. -Abx per ID: IV meropenem, renally adjusted -Exchange Luther, urine culture ordered -Trend WBC and fever curve -f/u cultures s/p HHNK, h/o hypothyroidism -Restart home levothyroxine (50 mcg q day) -s/p Insulin drip x2 -SSI, long acting insulin (adjust as needed) -TSH 6.04, T4 0.93 -Avoid hypoglycemia # Leukocytosis, thrombocytopenia (resolved), anemia -HIT (-) -Trend CBC -Transfuse to hemoglobin less than 7 -hbg 6.9 -transfuse one unit PRBC -SCD to bilateral lower extremities while in bed -BUE dopplar US negative for DVT PLAN 1- Recommend MRA brain and neck can not do CTA due to renal impairment 2- Consider LINCOLN 3- cardiac monitering 4- ASA 81 mg and Lipitor 40 mg 5- review C/s blood and CSF ID is on the case 6- EEG when possible 7- Avoid sedation 8- avoid Hypotension will follow Subjective Date of service: 05/05/21 Principal diagnosis: Acute respiratory failure Interval history: she is more interactive, move upper limbs to stimulation not follow command , open eyes to calling her name ,move left side with right side weakness more upper MRA pending as well as LINCOLN she is off sedation blcs negative Bun/Cr#58/3.4--43/2.7 EEG still pending wbs#14.3 LDL#51 Objective - Vital Sign Vital Signs - 12hr 05/04/21 05/04/21 05/04/21 22:45 23:00 23:15 Temperature Pulse Rate 77 89 81 Pulse Rate [ From Monitor] Respiratory 14 24 14 Rate Blood Pressure 146/50 123/57 130/55 O2 Sat by Pulse 97 98 97 Oximetry 05/04/21 05/04/21 05/05/21 23:31 23:45 00:00 Temperature 98.0 F Pulse Rate 85 81 84 Pulse Rate [ 78 From Monitor] Respiratory 22 23 18 Rate Blood Pressure 130/55 133/61 O2 Sat by Pulse 97 97 97 Oximetry 05/05/21 05/05/21 05/05/21 00:01 00:05 00:10 Temperature Pulse Rate 74 81 74 Pulse Rate [ From Monitor] Respiratory 14 16 Rate Blood Pressure 87/42 126/57 133/61 O2 Sat by Pulse 95 98 96 Oximetry 05/05/21 05/05/21 05/05/21 00:15 00:30 00:45 Temperature Pulse Rate 90 79 83 Pulse Rate [ From Monitor] Respiratory 21 14 19 Rate Blood Pressure 118/65 130/54 125/61 O2 Sat by Pulse 98 98 98 Oximetry 05/05/21 05/05/21 05/05/21 01:00 01:15 01:30 Temperature Pulse Rate 79 79 82 Pulse Rate [ From Monitor] Respiratory 14 16 19 Rate Blood Pressure 131/59 118/56 115/62 O2 Sat by Pulse 98 98 98 Oximetry 05/05/21 05/05/21 05/05/21 01:45 02:00 02:15 Temperature Pulse Rate 81 83 83 Pulse Rate [ From Monitor] Respiratory 15 15 20 Rate Blood Pressure 121/55 117/60 125/69 O2 Sat by Pulse 98 98 98 Oximetry 05/05/21 05/05/21 05/05/21 02:30 02:45 03:00 Temperature Pulse Rate 83 83 75 Pulse Rate [ From Monitor] Respiratory 20 20 14 Rate Blood Pressure 112/61 120/60 99/52 O2 Sat by Pulse 98 97 96 Oximetry 05/05/21 05/05/21 05/05/21 03:15 03:30 03:45 Temperature Pulse Rate 77 76 79 Pulse Rate [ From Monitor] Respiratory 14 14 16 Rate Blood Pressure 99/52 94/53 94/53 O2 Sat by Pulse 97 96 98 Oximetry 05/05/21 05/05/21 05/05/21 04:00 04:01 04:03 Temperature 97.1 F L Pulse Rate 83 78 Pulse Rate [ 76 From Monitor] Respiratory 18 14 Rate Blood Pressure 112/51 129/57 O2 Sat by Pulse 97 99 98 Oximetry 05/05/21 05/05/21 05/05/21 04:15 04:31 04:45 Temperature Pulse Rate 74 82 80 Pulse Rate [ From Monitor] Respiratory 14 25 H 15 Rate Blood Pressure 89/52 114/51 132/64 O2 Sat by Pulse 97 98 98 Oximetry 05/05/21 05/05/21 05/05/21 05:00 05:15 05:30 Temperature Pulse Rate 86 85 83 Pulse Rate [ From Monitor] Respiratory 22 16 23 Rate Blood Pressure 135/66 127/65 119/59 O2 Sat by Pulse 98 98 99 Oximetry 05/05/21 05/05/21 05/05/21 05:45 06:01 06:15 Temperature Pulse Rate 80 73 76 Pulse Rate [ From Monitor] Respiratory 14 14 14 Rate Blood Pressure 140/63 101/47 125/63 O2 Sat by Pulse 98 96 98 Oximetry 05/05/21 05/05/21 05/05/21 06:30 06:45 07:00 Temperature Pulse Rate 81 82 75 Pulse Rate [ From Monitor] Respiratory 16 16 14 Rate Blood Pressure 135/69 132/65 122/58 O2 Sat by Pulse 98 99 98 Oximetry 05/05/21 05/05/21 05/05/21 07:15 07:30 07:45 Temperature Pulse Rate 84 78 82 Pulse Rate [ From Monitor] Respiratory 18 18 15 Rate Blood Pressure 126/70 110/65 107/65 O2 Sat by Pulse 98 98 98 Oximetry 05/05/21 05/05/21 05/05/21 08:00 08:15 08:31 Temperature 97.9 F Pulse Rate 83 82 77 Pulse Rate [ 83 From Monitor] Respiratory 22 33 H 14 Rate Blood Pressure 113/64 113/64 134/58 O2 Sat by Pulse 97 100 97 Oximetry 05/05/21 05/05/21 05/05/21 08:45 09:00 09:15 Temperature Pulse Rate 83 80 79 Pulse Rate [ From Monitor] Respiratory 18 14 22 Rate Blood Pressure 132/69 130/61 122/65 O2 Sat by Pulse 96 96 96 Oximetry 05/05/21 05/05/21 05/05/21 09:31 09:45 10:00 Temperature Pulse Rate 85 81 86 Pulse Rate [ From Monitor] Respiratory 13 15 15 Rate Blood Pressure 177/80 177/80 154/82 O2 Sat by Pulse 100 96 97 Oximetry 05/05/21 10:15 Temperature Pulse Rate 83 Pulse Rate [ From Monitor] Respiratory 16 Rate Blood Pressure 154/82 O2 Sat by Pulse 97 Oximetry - General Apperance Constitutional: comfortable - EENT EENT: PERRL, mucous membranes moist - Respiratory Respiratory: lungs clear, rhonchi - Cardiovascular Cardiovascular: regular rate, normal S1, normal S2 Extremities: no peripheral edema bilat, no clubbing, cyanosis - Gastrointestinal Gastrointestinal: normoactive bowel sounds - Integumentary Integumentary: normal - Neurologic Cranial nerve examination: PERRL, EOMI, facial droop Speech examination: other (intubated open eyes and slightly follow command t javier) Detailed motor examination: other (move left side upper> lower , weakness noted mainly right upper , reflexes are suppressd ,) - Laboratory Findings CBC and BMP: 05/04/21 04:48 05/05/21 04:00 Abnormal Lab Findings: Abnormal Labs 04/20/21 04/20/21 04/20/21 17:10 17:10 17:10 WBC 17.4 H RBC 5.19 H Hgb Hct 46.8 H MCH 27 L RDW 17.2 H Plt Count Seg Neuts % (Manual) 98.0 H Lymphocytes % (Manual) 2.0 L Nucleated RBC % 1.0 H Seg Neutrophils # Man 17.1 H Lymphocytes # (Manual) 0.3 L PT ABG pH POC ABG pCO2 POC ABG pO2 ABG pO2 ABG O2 Saturation ABG Base Excess ABG Hemoglobin ABG Oxyhemoglobin ABG Potassium ABG Chloride ABG Glucose Oxyhemoglobin Carboxyhemoglobin Sodium 173 H* Potassium Chloride 132.9 H Carbon Dioxide 17 L BUN 120 H Creatinine 4.2 H Glucose 762 H* POC Glucose Hemoglobin A1c Lactic Acid Calcium Phosphorus Magnesium 3.80 H Transferrin AST 72 H ALT 63 H Alkaline Phosphatase 148 H Total Creatine Kinase 3697 H CK-MB (CK-2) 36.0 H Serum Total Protein Total Protein Albumin 2.2 L Yluct-7-Iuhmgbhdx Ruhpu-2-Xzhjxvgoh Gamma Globulins PEP Interpretation HDL Cholesterol TSH Arterial Blood Glucose Arterial Blood Ionized Calcium Urine WBC (Auto) Urine Creatinine Urine Total Protein Crossmatch 04/20/21 04/20/21 04/20/21 17:10 17:10 18:55 WBC RBC Hgb Hct MCH RDW Plt Count Seg Neuts % (Manual) Lymphocytes % (Manual) Nucleated RBC % Seg Neutrophils # Man Lymphocytes # (Manual) PT ABG pH POC ABG pCO2 POC ABG pO2 ABG pO2 ABG O2 Saturation ABG Base Excess ABG Hemoglobin ABG Oxyhemoglobin ABG Potassium ABG Chloride ABG Glucose Oxyhemoglobin Carboxyhemoglobin Sodium Potassium Chloride Carbon Dioxide BUN Creatinine Glucose POC Glucose 574 H Hemoglobin A1c Lactic Acid 2.60 H* Calcium Phosphorus Magnesium Transferrin AST ALT Alkaline Phosphatase Total Creatine Kinase CK-MB (CK-2) Serum Total Protein Total Protein Albumin Vdonx-6-Yahsglrud Zxhmc-6-Fbbnevcdl Gamma Globulins PEP Interpretation HDL Cholesterol TSH 6.040 H Arterial Blood Glucose Arterial Blood Ionized Calcium Urine WBC (Auto) Urine Creatinine Urine Total Protein Crossmatch 04/20/21 04/20/21 04/21/21 22:58 22:58 00:14 WBC RBC Hgb Hct MCH RDW Plt Count Seg Neuts % (Manual) Lymphocytes % (Manual) Nucleated RBC % Seg Neutrophils # Man Lymphocytes # (Manual) PT ABG pH POC ABG pCO2 POC ABG pO2 ABG pO2 ABG O2 Saturation ABG Base Excess ABG Hemoglobin ABG Oxyhemoglobin ABG Potassium ABG Chloride ABG Glucose Oxyhemoglobin Carboxyhemoglobin Sodium 172 H* Potassium 3.2 L Chloride 134.2 H Carbon Dioxide 17 L BUN 112 H Creatinine 3.8 H Glucose 803 H* POC Glucose > 600 H Hemoglobin A1c Lactic Acid Calcium 8.3 L Phosphorus Magnesium 3.50 H Transferrin AST ALT Alkaline Phosphatase Total Creatine Kinase CK-MB (CK-2) Serum Total Protein Total Protein Albumin Xxjho-6-Apygwvapf Rvgcv-1-Qlxzkhbrg Gamma Globulins PEP Interpretation HDL Cholesterol TSH Arterial Blood Glucose Arterial Blood Ionized Calcium Urine WBC (Auto) Urine Creatinine Urine Total Protein Crossmatch 04/21/21 04/21/21 04/21/21 00:22 02:01 03:11 WBC RBC Hgb Hct MCH RDW Plt Count Seg Neuts % (Manual) Lymphocytes % (Manual) Nucleated RBC % Seg Neutrophils # Man Lymphocytes # (Manual) PT ABG pH POC ABG pCO2 POC ABG pO2 ABG pO2 ABG O2 Saturation ABG Base Excess ABG Hemoglobin ABG Oxyhemoglobin ABG Potassium ABG Chloride ABG Glucose Oxyhemoglobin Carboxyhemoglobin Sodium 176 H* 175 H* Potassium 2.9 L* 3.0 L Chloride 139.9 H 136.2 H Carbon Dioxide 17 L 19 L BUN 113 H 112 H Creatinine 3.9 H 3.6 H Glucose 729 H* 582 H* POC Glucose 404 H Hemoglobin A1c Lactic Acid Calcium Phosphorus Magnesium Transferrin AST ALT Alkaline Phosphatase Total Creatine Kinase CK-MB (CK-2) Serum Total Protein Total Protein Albumin Xeqhn-4-Ldrmqqdzd Sjfgw-3-Tcqqdscqx Gamma Globulins PEP Interpretation HDL Cholesterol TSH Arterial Blood Glucose Arterial Blood Ionized Calcium Urine WBC (Auto) Urine Creatinine Urine Total Protein Crossmatch 04/21/21 04/21/21 04/21/21 03:20 03:41 03:41 WBC 14.1 H RBC Hgb Hct MCH 27 L RDW 16.8 H Plt Count 114 L Seg Neuts % (Manual) 97.0 H Lymphocytes % (Manual) 3.0 L Nucleated RBC % 1.0 H Seg Neutrophils # Man 13.7 H Lymphocytes # (Manual) 0.4 L PT ABG pH POC ABG pCO2 POC ABG pO2 ABG pO2 52.3 L ABG O2 Saturation 84.5 L ABG Base Excess -2.9 L ABG Hemoglobin ABG Oxyhemoglobin ABG Potassium ABG Chloride ABG Glucose Oxyhemoglobin 82.9 L Carboxyhemoglobin Sodium 179 H* Potassium 2.9 L* Chloride 138.2 H Carbon Dioxide 20 L BUN 111 H Creatinine 3.7 H Glucose 465 H POC Glucose Hemoglobin A1c Lactic Acid Calcium Phosphorus Magnesium Transferrin AST 73 H ALT 61 H Alkaline Phosphatase 144 H Total Creatine Kinase CK-MB (CK-2) Serum Total Protein Total Protein Albumin 2.5 L Bgrzr-5-Kjltmybbw Fgzis-0-Oregesjuy Gamma Globulins PEP Interpretation HDL Cholesterol TSH Arterial Blood Glucose Arterial Blood Ionized Calcium Urine WBC (Auto) Urine Creatinine Urine Total Protein Crossmatch 04/21/21 04/21/21 04/21/21 04:24 05:45 06:47 WBC RBC Hgb Hct MCH RDW Plt Count Seg Neuts % (Manual) Lymphocytes % (Manual) Nucleated RBC % Seg Neutrophils # Man Lymphocytes # (Manual) PT ABG pH POC ABG pCO2 POC ABG pO2 ABG pO2 ABG O2 Saturation ABG Base Excess ABG Hemoglobin ABG Oxyhemoglobin ABG Potassium ABG Chloride ABG Glucose Oxyhemoglobin Carboxyhemoglobin Sodium Potassium Chloride Carbon Dioxide BUN Creatinine Glucose POC Glucose 353 H 280 H 260 H Hemoglobin A1c Lactic Acid Calcium Phosphorus Magnesium Transferrin AST ALT Alkaline Phosphatase Total Creatine Kinase CK-MB (CK-2) Serum Total Protein Total Protein Albumin Innch-9-Vidonvzih Uqmcw-7-Nbpgmqklx Gamma Globulins PEP Interpretation HDL Cholesterol TSH Arterial Blood Glucose Arterial Blood Ionized Calcium Urine WBC (Auto) Urine Creatinine Urine Total Protein Crossmatch 04/21/21 04/21/21 04/21/21 08:01 11:11 12:51 WBC RBC Hgb Hct MCH RDW Plt Count Seg Neuts % (Manual) Lymphocytes % (Manual) Nucleated RBC % Seg Neutrophils # Man Lymphocytes # (Manual) PT ABG pH POC ABG pCO2 POC ABG pO2 ABG pO2 ABG O2 Saturation ABG Base Excess ABG Hemoglobin ABG Oxyhemoglobin ABG Potassium ABG Chloride ABG Glucose Oxyhemoglobin Carboxyhemoglobin Sodium Potassium Chloride Carbon Dioxide BUN Creatinine Glucose POC Glucose 68 L 146 H Hemoglobin A1c Lactic Acid Calcium Phosphorus Magnesium Transferrin AST ALT Alkaline Phosphatase Total Creatine Kinase CK-MB (CK-2) Serum Total Protein Total Protein Albumin Dqwyd-6-Pbmdyzovn Ttuvo-9-Lhigycyby Gamma Globulins PEP Interpretation HDL Cholesterol TSH Arterial Blood Glucose Arterial Blood Ionized Calcium Urine WBC (Auto) Urine Creatinine 44.3 H Urine Total Protein 12 H Crossmatch 04/21/21 04/21/21 04/21/21 13:41 14:40 15:47 WBC RBC Hgb Hct MCH RDW Plt Count Seg Neuts % (Manual) Lymphocytes % (Manual) Nucleated RBC % Seg Neutrophils # Man Lymphocytes # (Manual) PT ABG pH 7.275 L 7.486 H POC ABG pCO2 POC ABG pO2 63.4 L ABG pO2 168.1 H ABG O2 Saturation 99.1 H ABG Base Excess ABG Hemoglobin 8.4 L 8.9 L ABG Oxyhemoglobin 89.5 L ABG Potassium ABG Chloride 108.0 H ABG Glucose 404 H Oxyhemoglobin Carboxyhemoglobin Sodium Potassium Chloride Carbon Dioxide BUN Creatinine Glucose POC Glucose 186 H Hemoglobin A1c Lactic Acid Calcium Phosphorus Magnesium Transferrin AST ALT Alkaline Phosphatase Total Creatine Kinase CK-MB (CK-2) Serum Total Protein Total Protein Albumin Jnnne-1-Zlhkgeqop Smnml-1-Awqfbleqs Gamma Globulins PEP Interpretation HDL Cholesterol TSH Arterial Blood Glucose 404 H Arterial Blood Ionized Calcium Urine WBC (Auto) Urine Creatinine Urine Total Protein Crossmatch 04/21/21 04/21/21 04/21/21 16:25 17:57 18:49 WBC RBC Hgb Hct MCH RDW Plt Count Seg Neuts % (Manual) Lymphocytes % (Manual) Nucleated RBC % Seg Neutrophils # Man Lymphocytes # (Manual) PT ABG pH POC ABG pCO2 POC ABG pO2 ABG pO2 ABG O2 Saturation ABG Base Excess ABG Hemoglobin ABG Oxyhemoglobin ABG Potassium ABG Chloride ABG Glucose Oxyhemoglobin Carboxyhemoglobin Sodium 174 H* Potassium 7.2 H* D Chloride 138.2 H Carbon Dioxide 21 L BUN 99 H Creatinine 4.0 H Glucose 157 H POC Glucose 172 H 143 H Hemoglobin A1c Lactic Acid Calcium Phosphorus Magnesium Transferrin AST 134 H ALT 71 H Alkaline Phosphatase 135 H Total Creatine Kinase 3504 H CK-MB (CK-2) Serum Total Protein Total Protein Albumin 2.2 L Sqtea-8-Uvtwftnye Syvuz-2-Wvkruqndj Gamma Globulins PEP Interpretation HDL Cholesterol TSH Arterial Blood Glucose Arterial Blood Ionized Calcium Urine WBC (Auto) Urine Creatinine Urine Total Protein Crossmatch 04/21/21 04/21/21 04/21/21 19:10 20:26 20:53 WBC RBC Hgb Hct MCH RDW Plt Count Seg Neuts % (Manual) Lymphocytes % (Manual) Nucleated RBC % Seg Neutrophils # Man Lymphocytes # (Manual) PT ABG pH POC ABG pCO2 POC ABG pO2 ABG pO2 ABG O2 Saturation ABG Base Excess ABG Hemoglobin ABG Oxyhemoglobin ABG Potassium ABG Chloride ABG Glucose Oxyhemoglobin Carboxyhemoglobin Sodium Potassium Chloride Carbon Dioxide BUN Creatinine Glucose POC Glucose 126 H 190 H 116 H Hemoglobin A1c Lactic Acid Calcium Phosphorus Magnesium Transferrin AST ALT Alkaline Phosphatase Total Creatine Kinase CK-MB (CK-2) Serum Total Protein Total Protein Albumin Fqfia-4-Vpyfigsfh Ymhwv-0-Uasskssrg Gamma Globulins PEP Interpretation HDL Cholesterol TSH Arterial Blood Glucose Arterial Blood Ionized Calcium Urine WBC (Auto) Urine Creatinine Urine Total Protein Crossmatch 04/21/21 04/21/21 04/21/21 21:52 22:55 23:00 WBC RBC Hgb Hct MCH RDW Plt Count Seg Neuts % (Manual) Lymphocytes % (Manual) Nucleated RBC % Seg Neutrophils # Man Lymphocytes # (Manual) PT ABG pH POC ABG pCO2 POC ABG pO2 ABG pO2 ABG O2 Saturation ABG Base Excess ABG Hemoglobin ABG Oxyhemoglobin ABG Potassium ABG Chloride ABG Glucose Oxyhemoglobin Carboxyhemoglobin Sodium 176 H* Potassium Chloride 140.0 H Carbon Dioxide 20 L BUN 98 H Creatinine 3.9 H Glucose 206 H POC Glucose 135 H 158 H Hemoglobin A1c Lactic Acid Calcium Phosphorus Magnesium Transferrin AST ALT Alkaline Phosphatase Total Creatine Kinase 3240 H CK-MB (CK-2) Serum Total Protein Total Protein Albumin Pukre-8-Bjadvbezx Hhafu-4-Pwluglvvq Gamma Globulins PEP Interpretation HDL Cholesterol TSH Arterial Blood Glucose Arterial Blood Ionized Calcium Urine WBC (Auto) Urine Creatinine Urine Total Protein Crossmatch 04/22/21 04/22/21 04/22/21 00:01 00:39 00:58 WBC RBC Hgb Hct MCH RDW Plt Count Seg Neuts % (Manual) Lymphocytes % (Manual) Nucleated RBC % Seg Neutrophils # Man Lymphocytes # (Manual) PT ABG pH POC ABG pCO2 POC ABG pO2 ABG pO2 ABG O2 Saturation ABG Base Excess ABG Hemoglobin ABG Oxyhemoglobin ABG Potassium ABG Chloride ABG Glucose Oxyhemoglobin Carboxyhemoglobin Sodium 171 H* Potassium Chloride Carbon Dioxide BUN Creatinine Glucose POC Glucose 182 H 176 H Hemoglobin A1c Lactic Acid Calcium Phosphorus Magnesium Transferrin AST ALT Alkaline Phosphatase Total Creatine Kinase CK-MB (CK-2) Serum Total Protein Total Protein Albumin Ildef-0-Hvxodkujl Cepuz-8-Juyliwhbb Gamma Globulins PEP Interpretation HDL Cholesterol TSH Arterial Blood Glucose Arterial Blood Ionized Calcium Urine WBC (Auto) Urine Creatinine Urine Total Protein Crossmatch 04/22/21 04/22/21 04/22/21 01:04 04:52 06:07 WBC 11.2 H RBC Hgb Hct 44.3 H MCH 27 L RDW 17.1 H Plt Count 86 L Seg Neuts % (Manual) 86.0 H Lymphocytes % (Manual) 13.0 L Nucleated RBC % Seg Neutrophils # Man 9.6 H Lymphocytes # (Manual) PT ABG pH POC ABG pCO2 POC ABG pO2 ABG pO2 ABG O2 Saturation ABG Base Excess ABG Hemoglobin ABG Oxyhemoglobin ABG Potassium ABG Chloride ABG Glucose Oxyhemoglobin Carboxyhemoglobin Sodium Potassium Chloride Carbon Dioxide BUN Creatinine Glucose POC Glucose 143 H 206 H Hemoglobin A1c Lactic Acid Calcium Phosphorus Magnesium Transferrin AST ALT Alkaline Phosphatase Total Creatine Kinase CK-MB (CK-2) Serum Total Protein Total Protein Albumin Ncwaq-3-Syjedlqml Lodrp-7-Rbaaxdodv Gamma Globulins PEP Interpretation HDL Cholesterol TSH Arterial Blood Glucose Arterial Blood Ionized Calcium Urine WBC (Auto) Urine Creatinine Urine Total Protein Crossmatch 04/22/21 04/22/21 04/22/21 06:09 07:18 08:59 WBC RBC Hgb Hct MCH RDW Plt Count Seg Neuts % (Manual) Lymphocytes % (Manual) Nucleated RBC % Seg Neutrophils # Man Lymphocytes # (Manual) PT ABG pH POC ABG pCO2 POC ABG pO2 ABG pO2 ABG O2 Saturation ABG Base Excess ABG Hemoglobin ABG Oxyhemoglobin ABG Potassium ABG Chloride ABG Glucose Oxyhemoglobin Carboxyhemoglobin Sodium Potassium Chloride Carbon Dioxide BUN Creatinine Glucose POC Glucose 163 H 158 H Hemoglobin A1c Lactic Acid Calcium Phosphorus Magnesium Transferrin AST ALT Alkaline Phosphatase Total Creatine Kinase 3105 H CK-MB (CK-2) Serum Total Protein Total Protein Albumin Comzs-0-Kkrbffmsp Lhcia-5-Gbclvzuvq Gamma Globulins PEP Interpretation HDL Cholesterol TSH Arterial Blood Glucose Arterial Blood Ionized Calcium Urine WBC (Auto) Urine Creatinine Urine Total Protein Crossmatch 04/22/21 04/22/21 04/22/21 08:59 08:59 09:44 WBC RBC Hgb Hct MCH RDW Plt Count Seg Neuts % (Manual) Lymphocytes % (Manual) Nucleated RBC % Seg Neutrophils # Man Lymphocytes # (Manual) PT ABG pH POC ABG pCO2 POC ABG pO2 ABG pO2 ABG O2 Saturation ABG Base Excess ABG Hemoglobin ABG Oxyhemoglobin ABG Potassium ABG Chloride ABG Glucose Oxyhemoglobin Carboxyhemoglobin Sodium 169 H* Potassium 3.5 L Chloride 134.5 H Carbon Dioxide 20 L BUN 95 H Creatinine 3.6 H Glucose 151 H POC Glucose Hemoglobin A1c Lactic Acid Calcium Phosphorus Magnesium 2.80 H Transferrin AST 121 H ALT 75 H Alkaline Phosphatase 137 H Total Creatine Kinase CK-MB (CK-2) Serum Total Protein 5.5 L Total Protein 6.0 L Albumin 2.8 L 2.1 L Kbagi-0-Atnlisipi 0.6 H Vcwwt-5-Hlbaoljtu 1.0 H Gamma Globulins 0.6 L PEP Interpretation see below H HDL Cholesterol TSH Arterial Blood Glucose Arterial Blood Ionized Calcium Urine WBC (Auto) Urine Creatinine Urine Total Protein Crossmatch 04/22/21 04/22/21 04/22/21 10:24 12:20 13:19 WBC RBC Hgb Hct MCH RDW Plt Count Seg Neuts % (Manual) Lymphocytes % (Manual) Nucleated RBC % Seg Neutrophils # Man Lymphocytes # (Manual) PT ABG pH POC ABG pCO2 POC ABG pO2 ABG pO2 ABG O2 Saturation ABG Base Excess ABG Hemoglobin ABG Oxyhemoglobin ABG Potassium ABG Chloride ABG Glucose Oxyhemoglobin Carboxyhemoglobin Sodium Potassium Chloride Carbon Dioxide BUN Creatinine Glucose POC Glucose 107 H 131 H 147 H Hemoglobin A1c Lactic Acid Calcium Phosphorus Magnesium Transferrin AST ALT Alkaline Phosphatase Total Creatine Kinase CK-MB (CK-2) Serum Total Protein Total Protein Albumin Eptow-0-Yzvgszqkb Bqavi-2-Mikzonfmy Gamma Globulins PEP Interpretation HDL Cholesterol TSH Arterial Blood Glucose Arterial Blood Ionized Calcium Urine WBC (Auto) Urine Creatinine Urine Total Protein Crossmatch 04/22/21 04/22/21 04/22/21 14:16 15:22 15:55 WBC RBC Hgb Hct MCH RDW Plt Count Seg Neuts % (Manual) Lymphocytes % (Manual) Nucleated RBC % Seg Neutrophils # Man Lymphocytes # (Manual) PT ABG pH POC ABG pCO2 POC ABG pO2 ABG pO2 ABG O2 Saturation ABG Base Excess ABG Hemoglobin ABG Oxyhemoglobin ABG Potassium ABG Chloride ABG Glucose Oxyhemoglobin Carboxyhemoglobin Sodium 169 H* Potassium Chloride 133.5 H Carbon Dioxide 19 L BUN 94 H Creatinine 3.8 H Glucose 150 H POC Glucose 154 H 136 H Hemoglobin A1c Lactic Acid Calcium Phosphorus Magnesium Transferrin AST ALT Alkaline Phosphatase Total Creatine Kinase CK-MB (CK-2) Serum Total Protein Total Protein Albumin Dqqqg-6-Tbcfwvmxr Gpbkz-9-Bdhlqpayp Gamma Globulins PEP Interpretation HDL Cholesterol TSH Arterial Blood Glucose Arterial Blood Ionized Calcium Urine WBC (Auto) Urine Creatinine Urine Total Protein Crossmatch 04/22/21 04/22/21 04/22/21 15:55 16:22 18:11 WBC RBC Hgb Hct MCH RDW Plt Count Seg Neuts % (Manual) Lymphocytes % (Manual) Nucleated RBC % Seg Neutrophils # Man Lymphocytes # (Manual) PT ABG pH POC ABG pCO2 POC ABG pO2 ABG pO2 ABG O2 Saturation ABG Base Excess ABG Hemoglobin ABG Oxyhemoglobin ABG Potassium ABG Chloride ABG Glucose Oxyhemoglobin Carboxyhemoglobin Sodium Potassium Chloride Carbon Dioxide BUN Creatinine Glucose POC Glucose 140 H Hemoglobin A1c 17.1 H Lactic Acid Calcium Phosphorus Magnesium Transferrin AST ALT Alkaline Phosphatase Total Creatine Kinase 2497 H CK-MB (CK-2) Serum Total Protein Total Protein Albumin Jozgk-6-Wugneazsx Ndtuy-9-Kwcxhkzkh Gamma Globulins PEP Interpretation HDL Cholesterol TSH Arterial Blood Glucose Arterial Blood Ionized Calcium Urine WBC (Auto) Urine Creatinine Urine Total Protein Crossmatch 04/22/21 04/22/21 04/23/21 18:26 23:19 00:27 WBC RBC Hgb Hct MCH RDW Plt Count Seg Neuts % (Manual) Lymphocytes % (Manual) Nucleated RBC % Seg Neutrophils # Man Lymphocytes # (Manual) PT ABG pH POC ABG pCO2 POC ABG pO2 ABG pO2 ABG O2 Saturation ABG Base Excess ABG Hemoglobin ABG Oxyhemoglobin ABG Potassium ABG Chloride ABG Glucose Oxyhemoglobin Carboxyhemoglobin Sodium 162 H* Potassium Chloride Carbon Dioxide BUN Creatinine Glucose POC Glucose 146 H 188 H Hemoglobin A1c Lactic Acid Calcium Phosphorus Magnesium Transferrin AST ALT Alkaline Phosphatase Total Creatine Kinase CK-MB (CK-2) Serum Total Protein Total Protein Albumin Yfinn-0-Bvelakcxu Khcce-0-Sxhcxnaji Gamma Globulins PEP Interpretation HDL Cholesterol TSH Arterial Blood Glucose Arterial Blood Ionized Calcium Urine WBC (Auto) Urine Creatinine Urine Total Protein Crossmatch 04/23/21 04/23/21 04/23/21 05:23 07:50 08:13 WBC RBC Hgb Hct MCH RDW Plt Count Seg Neuts % (Manual) Lymphocytes % (Manual) Nucleated RBC % Seg Neutrophils # Man Lymphocytes # (Manual) PT ABG pH POC ABG pCO2 POC ABG pO2 ABG pO2 ABG O2 Saturation ABG Base Excess ABG Hemoglobin ABG Oxyhemoglobin ABG Potassium ABG Chloride ABG Glucose Oxyhemoglobin Carboxyhemoglobin Sodium Potassium Chloride Carbon Dioxide BUN Creatinine Glucose POC Glucose 212 H 239 H Hemoglobin A1c Lactic Acid Calcium Phosphorus Magnesium Transferrin AST ALT Alkaline Phosphatase Total Creatine Kinase 1803 H CK-MB (CK-2) Serum Total Protein Total Protein Albumin Tbzps-8-Xeeyudmab Ivorj-1-Yjvlvlbms Gamma Globulins PEP Interpretation HDL Cholesterol TSH Arterial Blood Glucose Arterial Blood Ionized Calcium Urine WBC (Auto) Urine Creatinine Urine Total Protein Crossmatch 04/23/21 04/23/21 04/23/21 08:13 08:13 12:06 WBC 11.9 H RBC Hgb Hct MCH 26 L RDW 16.5 H Plt Count 72 L Seg Neuts % (Manual) 80.0 H Lymphocytes % (Manual) 5.0 L Nucleated RBC % Seg Neutrophils # Man 9.5 H Lymphocytes # (Manual) 0.6 L PT ABG pH POC ABG pCO2 POC ABG pO2 ABG pO2 ABG O2 Saturation ABG Base Excess ABG Hemoglobin ABG Oxyhemoglobin ABG Potassium ABG Chloride ABG Glucose Oxyhemoglobin Carboxyhemoglobin Sodium 164 H* Potassium Chloride 128.0 H Carbon Dioxide 21 L BUN 93 H Creatinine 3.8 H Glucose 293 H POC Glucose 311 H Hemoglobin A1c Lactic Acid Calcium Phosphorus Magnesium Transferrin AST 99 H ALT 70 H Alkaline Phosphatase 147 H Total Creatine Kinase CK-MB (CK-2) Serum Total Protein Total Protein 6.1 L Albumin 2.0 L Xyebj-8-Cuvupkjfd Olkkv-2-Fydakckdq Gamma Globulins PEP Interpretation HDL Cholesterol TSH Arterial Blood Glucose Arterial Blood Ionized Calcium Urine WBC (Auto) Urine Creatinine Urine Total Protein Crossmatch 04/23/21 04/23/21 04/24/21 17:35 18:17 02:13 WBC RBC Hgb Hct MCH RDW Plt Count Seg Neuts % (Manual) Lymphocytes % (Manual) Nucleated RBC % Seg Neutrophils # Man Lymphocytes # (Manual) PT ABG pH POC ABG pCO2 POC ABG pO2 ABG pO2 ABG O2 Saturation ABG Base Excess ABG Hemoglobin ABG Oxyhemoglobin ABG Potassium ABG Chloride ABG Glucose Oxyhemoglobin Carboxyhemoglobin Sodium 160 H 160 H Potassium Chloride Carbon Dioxide BUN Creatinine Glucose POC Glucose 370 H Hemoglobin A1c Lactic Acid Calcium Phosphorus Magnesium Transferrin AST ALT Alkaline Phosphatase Total Creatine Kinase CK-MB (CK-2) Serum Total Protein Total Protein Albumin Adcem-2-Popusbhxw Dkbav-7-Fcljiszwu Gamma Globulins PEP Interpretation HDL Cholesterol TSH Arterial Blood Glucose Arterial Blood Ionized Calcium Urine WBC (Auto) Urine Creatinine Urine Total Protein Crossmatch 04/24/21 04/24/21 04/24/21 06:00 06:00 07:46 WBC RBC Hgb Hct MCH 27 L RDW 17.0 H Plt Count 58 L Seg Neuts % (Manual) Lymphocytes % (Manual) 2.0 L Nucleated RBC % Seg Neutrophils # Man 8.9 H Lymphocytes # (Manual) 0.2 L PT ABG pH POC ABG pCO2 POC ABG pO2 ABG pO2 ABG O2 Saturation ABG Base Excess ABG Hemoglobin ABG Oxyhemoglobin ABG Potassium ABG Chloride ABG Glucose Oxyhemoglobin Carboxyhemoglobin Sodium Potassium Chloride Carbon Dioxide BUN Creatinine Glucose POC Glucose 395 H Hemoglobin A1c Lactic Acid Calcium Phosphorus Magnesium 2.90 H Transferrin AST ALT Alkaline Phosphatase Total Creatine Kinase CK-MB (CK-2) Serum Total Protein Total Protein Albumin Xykwo-2-Tzjqnbltu Kklat-4-Udydiqywo Gamma Globulins PEP Interpretation HDL Cholesterol TSH Arterial Blood Glucose Arterial Blood Ionized Calcium Urine WBC (Auto) Urine Creatinine Urine Total Protein Crossmatch 04/24/21 04/24/21 04/24/21 08:15 11:34 13:11 WBC RBC Hgb Hct MCH RDW Plt Count Seg Neuts % (Manual) Lymphocytes % (Manual) Nucleated RBC % Seg Neutrophils # Man Lymphocytes # (Manual) PT ABG pH POC ABG pCO2 POC ABG pO2 ABG pO2 ABG O2 Saturation ABG Base Excess ABG Hemoglobin ABG Oxyhemoglobin ABG Potassium ABG Chloride ABG Glucose Oxyhemoglobin Carboxyhemoglobin Sodium 159 H Potassium Chloride 125.6 H Carbon Dioxide 19 L BUN 94 H Creatinine 3.7 H Glucose 514 H* POC Glucose 422 H 384 H Hemoglobin A1c Lactic Acid Calcium Phosphorus Magnesium Transferrin AST ALT 61 H Alkaline Phosphatase 155 H Total Creatine Kinase CK-MB (CK-2) Serum Total Protein Total Protein 6.1 L Albumin 1.5 L Yeviw-4-Vejeirifh Tdbbb-9-Nobcqgdip Gamma Globulins PEP Interpretation HDL Cholesterol TSH Arterial Blood Glucose Arterial Blood Ionized Calcium Urine WBC (Auto) Urine Creatinine Urine Total Protein Crossmatch 01/02/22 01/02/22 01/02/22 14:01 15:03 17:29 WBC RBC Hgb Hct MCH RDW Plt Count Seg Neuts % (Manual) Lymphocytes % (Manual) Nucleated RBC % Seg Neutrophils # Man Lymphocytes # (Manual) PT ABG pH POC ABG pCO2 POC ABG pO2 ABG pO2 ABG O2 Saturation ABG Base Excess ABG Hemoglobin ABG Oxyhemoglobin ABG Potassium ABG Chloride ABG Glucose Oxyhemoglobin Carboxyhemoglobin Sodium Potassium Chloride Carbon Dioxide BUN Creatinine Glucose POC Glucose 423 H 418 H Hemoglobin A1c Lactic Acid Calcium Phosphorus Magnesium Transferrin 112 L AST ALT Alkaline Phosphatase Total Creatine Kinase CK-MB (CK-2) Serum Total Protein Total Protein Albumin Zynln-5-Vszqlplba Bajgv-5-Adhzjlkmn Gamma Globulins PEP Interpretation HDL Cholesterol TSH Arterial Blood Glucose Arterial Blood Ionized Calcium Urine WBC (Auto) Urine Creatinine Urine Total Protein Crossmatch 04/24/21 04/24/21 04/24/21 18:28 19:41 22:33 WBC RBC Hgb Hct MCH RDW Plt Count Seg Neuts % (Manual) Lymphocytes % (Manual) Nucleated RBC % Seg Neutrophils # Man Lymphocytes # (Manual) PT ABG pH POC ABG pCO2 POC ABG pO2 ABG pO2 ABG O2 Saturation ABG Base Excess ABG Hemoglobin ABG Oxyhemoglobin ABG Potassium ABG Chloride ABG Glucose Oxyhemoglobin Carboxyhemoglobin Sodium Potassium Chloride Carbon Dioxide BUN Creatinine Glucose POC Glucose 335 H 321 H 349 H Hemoglobin A1c Lactic Acid Calcium Phosphorus Magnesium Transferrin AST ALT Alkaline Phosphatase Total Creatine Kinase CK-MB (CK-2) Serum Total Protein Total Protein Albumin Hhupb-7-Ioorjphsh Bkiej-7-Rhbolzuqk Gamma Globulins PEP Interpretation HDL Cholesterol TSH Arterial Blood Glucose Arterial Blood Ionized Calcium Urine WBC (Auto) Urine Creatinine Urine Total Protein Crossmatch 04/25/21 04/25/21 04/25/21 01:28 02:28 03:25 WBC RBC Hgb Hct MCH RDW Plt Count Seg Neuts % (Manual) Lymphocytes % (Manual) Nucleated RBC % Seg Neutrophils # Man Lymphocytes # (Manual) PT ABG pH POC ABG pCO2 POC ABG pO2 ABG pO2 ABG O2 Saturation ABG Base Excess ABG Hemoglobin ABG Oxyhemoglobin ABG Potassium ABG Chloride ABG Glucose Oxyhemoglobin Carboxyhemoglobin Sodium Potassium Chloride Carbon Dioxide BUN Creatinine Glucose POC Glucose 283 H 247 H 196 H Hemoglobin A1c Lactic Acid Calcium Phosphorus Magnesium Transferrin AST ALT Alkaline Phosphatase Total Creatine Kinase CK-MB (CK-2) Serum Total Protein Total Protein Albumin Lkugr-0-Xmqodmjrs Uhotv-5-Nlmfusfez Gamma Globulins PEP Interpretation HDL Cholesterol TSH Arterial Blood Glucose Arterial Blood Ionized Calcium Urine WBC (Auto) Urine Creatinine Urine Total Protein Crossmatch 04/25/21 04/25/21 04/25/21 04:22 05:40 05:45 WBC RBC Hgb Hct MCH 27 L RDW 17.0 H Plt Count 64 L Seg Neuts % (Manual) 84.0 H Lymphocytes % (Manual) 6.0 L Nucleated RBC % 1.0 H Seg Neutrophils # Man Lymphocytes # (Manual) 0.4 L PT ABG pH POC ABG pCO2 POC ABG pO2 ABG pO2 ABG O2 Saturation ABG Base Excess ABG Hemoglobin ABG Oxyhemoglobin ABG Potassium ABG Chloride ABG Glucose Oxyhemoglobin Carboxyhemoglobin Sodium Potassium Chloride Carbon Dioxide BUN Creatinine Glucose POC Glucose 207 H 204 H Hemoglobin A1c Lactic Acid Calcium Phosphorus Magnesium Transferrin AST ALT Alkaline Phosphatase Total Creatine Kinase CK-MB (CK-2) Serum Total Protein Total Protein Albumin Cizoc-7-Ygwgslsrw Vedhf-7-Nrbayzedh Gamma Globulins PEP Interpretation HDL Cholesterol TSH Arterial Blood Glucose Arterial Blood Ionized Calcium Urine WBC (Auto) Urine Creatinine Urine Total Protein Crossmatch 04/25/21 04/25/21 04/25/21 06:43 07:37 08:11 WBC RBC Hgb Hct MCH RDW Plt Count Seg Neuts % (Manual) Lymphocytes % (Manual) Nucleated RBC % Seg Neutrophils # Man Lymphocytes # (Manual) PT ABG pH POC ABG pCO2 POC ABG pO2 ABG pO2 ABG O2 Saturation ABG Base Excess ABG Hemoglobin ABG Oxyhemoglobin ABG Potassium ABG Chloride ABG Glucose Oxyhemoglobin Carboxyhemoglobin Sodium 148 H D Potassium Chloride 115.7 H Carbon Dioxide 21 L BUN 83 H Creatinine 3.6 H Glucose 247 H POC Glucose 238 H 201 H Hemoglobin A1c Lactic Acid Calcium Phosphorus Magnesium Transferrin AST 63 H ALT 62 H Alkaline Phosphatase 143 H Total Creatine Kinase CK-MB (CK-2) Serum Total Protein Total Protein 5.4 L Albumin 1.4 L Dsdrk-1-Gycyglwsi Lsawf-0-Zqnnnxiwn Gamma Globulins PEP Interpretation HDL Cholesterol TSH Arterial Blood Glucose Arterial Blood Ionized Calcium Urine WBC (Auto) Urine Creatinine Urine Total Protein Crossmatch 04/25/21 04/25/21 04/25/21 08:11 08:41 09:22 WBC RBC Hgb Hct MCH RDW Plt Count Seg Neuts % (Manual) Lymphocytes % (Manual) Nucleated RBC % Seg Neutrophils # Man Lymphocytes # (Manual) PT ABG pH POC ABG pCO2 POC ABG pO2 ABG pO2 ABG O2 Saturation ABG Base Excess ABG Hemoglobin ABG Oxyhemoglobin ABG Potassium ABG Chloride ABG Glucose Oxyhemoglobin Carboxyhemoglobin Sodium Potassium Chloride Carbon Dioxide BUN Creatinine Glucose POC Glucose 220 H 228 H Hemoglobin A1c Lactic Acid Calcium Phosphorus Magnesium 2.50 H Transferrin AST ALT Alkaline Phosphatase Total Creatine Kinase CK-MB (CK-2) Serum Total Protein Total Protein Albumin Waqbc-8-Pgkoemjzf Gwopg-5-Utbraltwr Gamma Globulins PEP Interpretation HDL Cholesterol TSH Arterial Blood Glucose Arterial Blood Ionized Calcium Urine WBC (Auto) Urine Creatinine Urine Total Protein Crossmatch 04/25/21 04/25/21 04/25/21 10:31 11:44 12:23 WBC RBC Hgb Hct MCH RDW Plt Count Seg Neuts % (Manual) Lymphocytes % (Manual) Nucleated RBC % Seg Neutrophils # Man Lymphocytes # (Manual) PT ABG pH POC ABG pCO2 POC ABG pO2 ABG pO2 ABG O2 Saturation ABG Base Excess ABG Hemoglobin ABG Oxyhemoglobin ABG Potassium ABG Chloride ABG Glucose Oxyhemoglobin Carboxyhemoglobin Sodium Potassium Chloride Carbon Dioxide BUN Creatinine Glucose POC Glucose 215 H 191 H 229 H Hemoglobin A1c Lactic Acid Calcium Phosphorus Magnesium Transferrin AST ALT Alkaline Phosphatase Total Creatine Kinase CK-MB (CK-2) Serum Total Protein Total Protein Albumin Ffwvz-3-Bbizhzstf Lqncj-8-Rkmbpgewf Gamma Globulins PEP Interpretation HDL Cholesterol TSH Arterial Blood Glucose Arterial Blood Ionized Calcium Urine WBC (Auto) Urine Creatinine Urine Total Protein Crossmatch 04/25/21 04/25/21 04/25/21 13:48 14:11 18:01 WBC RBC Hgb Hct MCH RDW Plt Count Seg Neuts % (Manual) Lymphocytes % (Manual) Nucleated RBC % Seg Neutrophils # Man Lymphocytes # (Manual) PT ABG pH POC ABG pCO2 POC ABG pO2 ABG pO2 ABG O2 Saturation ABG Base Excess ABG Hemoglobin ABG Oxyhemoglobin ABG Potassium ABG Chloride ABG Glucose Oxyhemoglobin Carboxyhemoglobin Sodium Potassium Chloride Carbon Dioxide BUN Creatinine Glucose POC Glucose 177 H 161 H 264 H Hemoglobin A1c Lactic Acid Calcium Phosphorus Magnesium Transferrin AST ALT Alkaline Phosphatase Total Creatine Kinase CK-MB (CK-2) Serum Total Protein Total Protein Albumin Vmrbe-2-Cvjejzidj Fstrc-6-Gbshbnudt Gamma Globulins PEP Interpretation HDL Cholesterol TSH Arterial Blood Glucose Arterial Blood Ionized Calcium Urine WBC (Auto) Urine Creatinine Urine Total Protein Crossmatch 04/25/21 04/26/21 04/26/21 21:31 01:19 06:31 WBC RBC Hgb Hct MCH RDW Plt Count Seg Neuts % (Manual) Lymphocytes % (Manual) Nucleated RBC % Seg Neutrophils # Man Lymphocytes # (Manual) PT ABG pH POC ABG pCO2 POC ABG pO2 ABG pO2 ABG O2 Saturation ABG Base Excess ABG Hemoglobin ABG Oxyhemoglobin ABG Potassium ABG Chloride ABG Glucose Oxyhemoglobin Carboxyhemoglobin Sodium Potassium Chloride Carbon Dioxide BUN Creatinine Glucose POC Glucose 371 H 356 H 428 H Hemoglobin A1c Lactic Acid Calcium Phosphorus Magnesium Transferrin AST ALT Alkaline Phosphatase Total Creatine Kinase CK-MB (CK-2) Serum Total Protein Total Protein Albumin Rohei-7-Kotdfgzhx Gfjcc-7-Tipbicudt Gamma Globulins PEP Interpretation HDL Cholesterol TSH Arterial Blood Glucose Arterial Blood Ionized Calcium Urine WBC (Auto) Urine Creatinine Urine Total Protein Crossmatch 04/26/21 04/26/21 04/26/21 09:13 09:33 09:33 WBC RBC Hgb Hct MCH 27 L RDW 16.9 H Plt Count 58 L Seg Neuts % (Manual) 77.0 H Lymphocytes % (Manual) 4.0 L Nucleated RBC % 2.0 H Seg Neutrophils # Man Lymphocytes # (Manual) 0.3 L PT ABG pH POC ABG pCO2 POC ABG pO2 ABG pO2 ABG O2 Saturation ABG Base Excess ABG Hemoglobin ABG Oxyhemoglobin ABG Potassium ABG Chloride ABG Glucose Oxyhemoglobin Carboxyhemoglobin Sodium Potassium Chloride Carbon Dioxide BUN Creatinine Glucose POC Glucose 454 H Hemoglobin A1c Lactic Acid Calcium Phosphorus 5.60 H D Magnesium Transferrin AST ALT Alkaline Phosphatase Total Creatine Kinase CK-MB (CK-2) Serum Total Protein Total Protein Albumin Mztuj-3-Xrfqtjnol Hejev-0-Mzvlotgbg Gamma Globulins PEP Interpretation HDL Cholesterol TSH Arterial Blood Glucose Arterial Blood Ionized Calcium Urine WBC (Auto) Urine Creatinine Urine Total Protein Crossmatch 04/26/21 04/26/21 04/26/21 09:33 11:00 12:36 WBC RBC Hgb Hct MCH RDW Plt Count Seg Neuts % (Manual) Lymphocytes % (Manual) Nucleated RBC % Seg Neutrophils # Man Lymphocytes # (Manual) PT ABG pH 7.281 L POC ABG pCO2 POC ABG pO2 66.4 L ABG pO2 ABG O2 Saturation ABG Base Excess ABG Hemoglobin 10.9 L ABG Oxyhemoglobin 91 L ABG Potassium ABG Chloride ABG Glucose 521 H Oxyhemoglobin Carboxyhemoglobin Sodium Potassium Chloride Carbon Dioxide 19 L BUN 98 H Creatinine 3.8 H Glucose 530 H* POC Glucose 414 H Hemoglobin A1c Lactic Acid Calcium 8.1 L Phosphorus Magnesium Transferrin AST 60 H ALT 72 H Alkaline Phosphatase 168 H Total Creatine Kinase CK-MB (CK-2) Serum Total Protein Total Protein 4.6 L Albumin 1.7 L Abqqy-6-Jxqeksjlc Tkooi-5-Peuknvrbw Gamma Globulins PEP Interpretation HDL Cholesterol TSH Arterial Blood Glucose 521 H Arterial Blood Ionized Calcium Urine WBC (Auto) Urine Creatinine Urine Total Protein Crossmatch 04/26/21 04/26/21 04/26/21 15:39 16:18 21:14 WBC RBC Hgb Hct MCH RDW Plt Count Seg Neuts % (Manual) Lymphocytes % (Manual) Nucleated RBC % Seg Neutrophils # Man Lymphocytes # (Manual) PT ABG pH 7.275 L POC ABG pCO2 POC ABG pO2 63.4 L ABG pO2 ABG O2 Saturation ABG Base Excess ABG Hemoglobin 8.4 L ABG Oxyhemoglobin 89.5 L ABG Potassium ABG Chloride 108.0 H ABG Glucose 404 H Oxyhemoglobin Carboxyhemoglobin Sodium Potassium Chloride Carbon Dioxide BUN Creatinine Glucose POC Glucose 324 H 242 H Hemoglobin A1c Lactic Acid Calcium Phosphorus Magnesium Transferrin AST ALT Alkaline Phosphatase Total Creatine Kinase CK-MB (CK-2) Serum Total Protein Total Protein Albumin Pxwmb-9-Usduvmtee Kcxhd-9-Rqembcvrg Gamma Globulins PEP Interpretation HDL Cholesterol TSH Arterial Blood Glucose 404 H Arterial Blood Ionized Calcium Urine WBC (Auto) Urine Creatinine Urine Total Protein Crossmatch 04/27/21 04/27/21 04/27/21 00:07 05:47 06:23 WBC RBC Hgb Hct MCH RDW Plt Count Seg Neuts % (Manual) Lymphocytes % (Manual) Nucleated RBC % Seg Neutrophils # Man Lymphocytes # (Manual) PT ABG pH POC ABG pCO2 POC ABG pO2 ABG pO2 ABG O2 Saturation ABG Base Excess ABG Hemoglobin ABG Oxyhemoglobin ABG Potassium ABG Chloride ABG Glucose Oxyhemoglobin Carboxyhemoglobin Sodium Potassium Chloride Carbon Dioxide BUN Creatinine Glucose POC Glucose 282 H 214 H 187 H Hemoglobin A1c Lactic Acid Calcium Phosphorus Magnesium Transferrin AST ALT Alkaline Phosphatase Total Creatine Kinase CK-MB (CK-2) Serum Total Protein Total Protein Albumin Zspai-0-Udwxsqwdn Qlluy-6-Vwuhldpos Gamma Globulins PEP Interpretation HDL Cholesterol TSH Arterial Blood Glucose Arterial Blood Ionized Calcium Urine WBC (Auto) Urine Creatinine Urine Total Protein Crossmatch 04/27/21 04/27/21 04/27/21 07:43 08:30 11:54 WBC RBC Hgb Hct MCH RDW Plt Count Seg Neuts % (Manual) Lymphocytes % (Manual) Nucleated RBC % Seg Neutrophils # Man Lymphocytes # (Manual) PT ABG pH 7.309 L POC ABG pCO2 POC ABG pO2 70.6 L ABG pO2 ABG O2 Saturation ABG Base Excess ABG Hemoglobin 9.16 L ABG Oxyhemoglobin 92.4 L ABG Potassium ABG Chloride ABG Glucose Oxyhemoglobin Carboxyhemoglobin Sodium Potassium Chloride 110.1 H Carbon Dioxide 15 L BUN 109 H Creatinine 4.3 H Glucose 218 H POC Glucose 147 H Hemoglobin A1c Lactic Acid Calcium Phosphorus Magnesium Transferrin AST 53 H ALT Alkaline Phosphatase 148 H Total Creatine Kinase 1000 H CK-MB (CK-2) Serum Total Protein Total Protein 5.2 L Albumin 1.2 L Hprkq-5-Rmztzbqvj Lsawj-0-Rdvrlytws Gamma Globulins PEP Interpretation HDL Cholesterol TSH Arterial Blood Glucose Arterial Blood Ionized Calcium Urine WBC (Auto) Urine Creatinine Urine Total Protein Crossmatch 04/27/21 04/27/21 04/28/21 21:08 23:28 04:00 WBC 12.6 H RBC 3.59 L Hgb 9.4 L Hct MCH 26 L RDW 16.6 H Plt Count 111 L Seg Neuts % (Manual) Lymphocytes % (Manual) 1.0 L Nucleated RBC % 4.0 H Seg Neutrophils # Man 11.6 H Lymphocytes # (Manual) 0.1 L PT ABG pH POC ABG pCO2 POC ABG pO2 ABG pO2 ABG O2 Saturation ABG Base Excess ABG Hemoglobin ABG Oxyhemoglobin ABG Potassium ABG Chloride ABG Glucose Oxyhemoglobin Carboxyhemoglobin Sodium Potassium Chloride Carbon Dioxide BUN Creatinine Glucose POC Glucose 136 H 201 H Hemoglobin A1c Lactic Acid Calcium Phosphorus Magnesium Transferrin AST ALT Alkaline Phosphatase Total Creatine Kinase CK-MB (CK-2) Serum Total Protein Total Protein Albumin Pgtgu-0-Cxrxcnrio Rmxbr-5-Rfybudtxl Gamma Globulins PEP Interpretation HDL Cholesterol TSH Arterial Blood Glucose Arterial Blood Ionized Calcium Urine WBC (Auto) Urine Creatinine Urine Total Protein Crossmatch 04/28/21 04/28/21 04/28/21 04:00 05:00 05:08 WBC RBC Hgb Hct MCH RDW Plt Count Seg Neuts % (Manual) Lymphocytes % (Manual) Nucleated RBC % Seg Neutrophils # Man Lymphocytes # (Manual) PT 15.3 H ABG pH POC ABG pCO2 POC ABG pO2 ABG pO2 ABG O2 Saturation ABG Base Excess ABG Hemoglobin ABG Oxyhemoglobin ABG Potassium ABG Chloride ABG Glucose Oxyhemoglobin Carboxyhemoglobin Sodium 147 H Potassium 3.5 L D Chloride Carbon Dioxide BUN 79 H Creatinine 3.8 H Glucose 194 H POC Glucose 183 H Hemoglobin A1c Lactic Acid Calcium 8.1 L Phosphorus Magnesium Transferrin AST ALT Alkaline Phosphatase Total Creatine Kinase CK-MB (CK-2) Serum Total Protein Total Protein Albumin Hvqow-0-Zfqjfsjrp Kszyl-5-Rsnxrapua Gamma Globulins PEP Interpretation HDL Cholesterol TSH Arterial Blood Glucose Arterial Blood Ionized Calcium Urine WBC (Auto) Urine Creatinine Urine Total Protein Crossmatch 04/28/21 04/28/21 04/28/21 05:18 11:04 17:16 WBC RBC Hgb Hct MCH RDW Plt Count Seg Neuts % (Manual) Lymphocytes % (Manual) Nucleated RBC % Seg Neutrophils # Man Lymphocytes # (Manual) PT ABG pH POC ABG pCO2 POC ABG pO2 66.5 L ABG pO2 ABG O2 Saturation ABG Base Excess ABG Hemoglobin 9.7 L ABG Oxyhemoglobin 92.5 L ABG Potassium 3.2 L ABG Chloride ABG Glucose 200 H Oxyhemoglobin Carboxyhemoglobin Sodium Potassium Chloride Carbon Dioxide BUN Creatinine Glucose POC Glucose 174 H 135 H Hemoglobin A1c Lactic Acid Calcium Phosphorus Magnesium Transferrin AST ALT Alkaline Phosphatase Total Creatine Kinase CK-MB (CK-2) Serum Total Protein Total Protein Albumin Hnqzm-9-Sqpoedzbs Qdlye-4-Ahiltiswi Gamma Globulins PEP Interpretation HDL Cholesterol TSH Arterial Blood Glucose 200 H Arterial Blood Ionized Calcium 4.5 L Urine WBC (Auto) Urine Creatinine Urine Total Protein Crossmatch 04/28/21 04/28/21 04/29/21 21:14 23:41 01:16 WBC RBC Hgb Hct MCH RDW Plt Count Seg Neuts % (Manual) Lymphocytes % (Manual) Nucleated RBC % Seg Neutrophils # Man Lymphocytes # (Manual) PT ABG pH POC ABG pCO2 POC ABG pO2 ABG pO2 ABG O2 Saturation ABG Base Excess ABG Hemoglobin ABG Oxyhemoglobin ABG Potassium ABG Chloride ABG Glucose Oxyhemoglobin Carboxyhemoglobin Sodium Potassium Chloride Carbon Dioxide BUN Creatinine Glucose POC Glucose 134 H 171 H 236 H Hemoglobin A1c Lactic Acid Calcium Phosphorus Magnesium Transferrin AST ALT Alkaline Phosphatase Total Creatine Kinase CK-MB (CK-2) Serum Total Protein Total Protein Albumin Jbljm-0-Qzrnqljdj Gxxfe-3-Bvwzwichk Gamma Globulins PEP Interpretation HDL Cholesterol TSH Arterial Blood Glucose Arterial Blood Ionized Calcium Urine WBC (Auto) Urine Creatinine Urine Total Protein Crossmatch 04/29/21 04/29/21 04/29/21 04:00 04:00 11:35 WBC 13.3 H RBC 3.12 L Hgb 8.3 L Hct 26.2 L MCH 27 L RDW 16.3 H Plt Count 132 L Seg Neuts % (Manual) Lymphocytes % (Manual) Nucleated RBC % Seg Neutrophils # Man Lymphocytes # (Manual) PT ABG pH POC ABG pCO2 POC ABG pO2 ABG pO2 ABG O2 Saturation ABG Base Excess ABG Hemoglobin ABG Oxyhemoglobin ABG Potassium ABG Chloride ABG Glucose Oxyhemoglobin Carboxyhemoglobin Sodium Potassium Chloride Carbon Dioxide BUN 63 H Creatinine 3.4 H Glucose 249 H POC Glucose 320 H Hemoglobin A1c Lactic Acid Calcium 8.2 L Phosphorus Magnesium Transferrin AST 61 H ALT 71 H Alkaline Phosphatase 170 H Total Creatine Kinase CK-MB (CK-2) Serum Total Protein Total Protein 5.1 L Albumin 1.6 L Psrip-9-Nsjvjonow Tglku-3-Nggomeczv Gamma Globulins PEP Interpretation HDL Cholesterol TSH Arterial Blood Glucose Arterial Blood Ionized Calcium Urine WBC (Auto) Urine Creatinine Urine Total Protein Crossmatch 04/29/21 04/29/21 04/29/21 13:30 16:01 21:58 WBC RBC Hgb Hct MCH RDW Plt Count Seg Neuts % (Manual) Lymphocytes % (Manual) Nucleated RBC % Seg Neutrophils # Man Lymphocytes # (Manual) PT ABG pH POC ABG pCO2 POC ABG pO2 ABG pO2 ABG O2 Saturation ABG Base Excess ABG Hemoglobin ABG Oxyhemoglobin ABG Potassium ABG Chloride ABG Glucose Oxyhemoglobin Carboxyhemoglobin Sodium Potassium Chloride Carbon Dioxide BUN Creatinine Glucose POC Glucose 297 H 260 H Hemoglobin A1c Lactic Acid Calcium Phosphorus Magnesium Transferrin AST ALT Alkaline Phosphatase Total Creatine Kinase CK-MB (CK-2) Serum Total Protein Total Protein Albumin Itbsn-6-Mxlgeypwl Kipck-4-Hvdxzjuav Gamma Globulins PEP Interpretation HDL Cholesterol TSH Arterial Blood Glucose Arterial Blood Ionized Calcium Urine WBC (Auto) > 182.0 H Urine Creatinine Urine Total Protein Crossmatch 04/29/21 04/30/21 04/30/21 23:35 04:00 04:00 WBC 11.4 H RBC 3.27 L Hgb 8.7 L Hct 27.5 L MCH 27 L RDW 16.6 H Plt Count Seg Neuts % (Manual) Lymphocytes % (Manual) Nucleated RBC % Seg Neutrophils # Man Lymphocytes # (Manual) PT ABG pH POC ABG pCO2 POC ABG pO2 ABG pO2 ABG O2 Saturation ABG Base Excess ABG Hemoglobin ABG Oxyhemoglobin ABG Potassium ABG Chloride ABG Glucose Oxyhemoglobin Carboxyhemoglobin Sodium Potassium 3.1 L Chloride Carbon Dioxide BUN 79 H Creatinine 3.9 H Glucose 275 H POC Glucose 254 H Hemoglobin A1c Lactic Acid Calcium Phosphorus 5.60 H D Magnesium Transferrin AST ALT Alkaline Phosphatase Total Creatine Kinase CK-MB (CK-2) Serum Total Protein Total Protein Albumin Yqnsz-1-Zgwvvilat Ibkxd-2-Akrqdgzkc Gamma Globulins PEP Interpretation HDL Cholesterol TSH Arterial Blood Glucose Arterial Blood Ionized Calcium Urine WBC (Auto) Urine Creatinine Urine Total Protein Crossmatch 04/30/21 04/30/21 04/30/21 05:17 05:31 12:31 WBC RBC Hgb Hct MCH RDW Plt Count Seg Neuts % (Manual) Lymphocytes % (Manual) Nucleated RBC % Seg Neutrophils # Man Lymphocytes # (Manual) PT ABG pH 7.452 H POC ABG pCO2 30.5 L POC ABG pO2 54.5 L ABG pO2 ABG O2 Saturation ABG Base Excess ABG Hemoglobin 10.1 L ABG Oxyhemoglobin 87.4 L ABG Potassium 2.9 L ABG Chloride ABG Glucose 305 H Oxyhemoglobin Carboxyhemoglobin Sodium Potassium Chloride Carbon Dioxide BUN Creatinine Glucose POC Glucose 267 H 259 H Hemoglobin A1c Lactic Acid Calcium Phosphorus Magnesium Transferrin AST ALT Alkaline Phosphatase Total Creatine Kinase CK-MB (CK-2) Serum Total Protein Total Protein Albumin Xovxg-6-Mmxwfziid Dffem-5-Eaiiuzpju Gamma Globulins PEP Interpretation HDL Cholesterol TSH Arterial Blood Glucose 305 H Arterial Blood Ionized Calcium Urine WBC (Auto) Urine Creatinine Urine Total Protein Crossmatch 04/30/21 04/30/21 05/01/21 17:50 22:24 00:09 WBC RBC Hgb Hct MCH RDW Plt Count Seg Neuts % (Manual) Lymphocytes % (Manual) Nucleated RBC % Seg Neutrophils # Man Lymphocytes # (Manual) PT ABG pH POC ABG pCO2 POC ABG pO2 ABG pO2 ABG O2 Saturation ABG Base Excess ABG Hemoglobin ABG Oxyhemoglobin ABG Potassium ABG Chloride ABG Glucose Oxyhemoglobin Carboxyhemoglobin Sodium Potassium Chloride Carbon Dioxide BUN Creatinine Glucose POC Glucose 161 H 146 H 149 H Hemoglobin A1c Lactic Acid Calcium Phosphorus Magnesium Transferrin AST ALT Alkaline Phosphatase Total Creatine Kinase CK-MB (CK-2) Serum Total Protein Total Protein Albumin Ydmcg-3-Nqgikkned Yksnu-1-Dhonagulq Gamma Globulins PEP Interpretation HDL Cholesterol TSH Arterial Blood Glucose Arterial Blood Ionized Calcium Urine WBC (Auto) Urine Creatinine Urine Total Protein Crossmatch 05/01/21 05/01/21 05/01/21 03:30 04:00 04:00 WBC 12.0 H RBC 3.08 L Hgb 8.1 L Hct 25.6 L MCH 26 L RDW 16.3 H Plt Count Seg Neuts % (Manual) Lymphocytes % (Manual) Nucleated RBC % Seg Neutrophils # Man Lymphocytes # (Manual) PT ABG pH 7.493 H POC ABG pCO2 POC ABG pO2 ABG pO2 ABG O2 Saturation ABG Base Excess ABG Hemoglobin 25.0 H ABG Oxyhemoglobin ABG Potassium ABG Chloride ABG Glucose 167 H Oxyhemoglobin Carboxyhemoglobin 0.4 L Sodium Potassium 3.5 L Chloride Carbon Dioxide BUN 62 H Creatinine 3.3 H Glucose 179 H POC Glucose Hemoglobin A1c Lactic Acid Calcium 8.3 L Phosphorus Magnesium Transferrin AST ALT Alkaline Phosphatase Total Creatine Kinase CK-MB (CK-2) Serum Total Protein Total Protein Albumin Lkboh-7-Dfcfgkybu Qxywd-8-Iwprewhrc Gamma Globulins PEP Interpretation HDL Cholesterol TSH Arterial Blood Glucose 167 H Arterial Blood Ionized Calcium Urine WBC (Auto) Urine Creatinine Urine Total Protein Crossmatch 05/01/21 05/01/21 05/01/21 05:48 11:49 16:24 WBC RBC Hgb Hct MCH RDW Plt Count Seg Neuts % (Manual) Lymphocytes % (Manual) Nucleated RBC % Seg Neutrophils # Man Lymphocytes # (Manual) PT ABG pH POC ABG pCO2 POC ABG pO2 ABG pO2 ABG O2 Saturation ABG Base Excess ABG Hemoglobin ABG Oxyhemoglobin ABG Potassium ABG Chloride ABG Glucose Oxyhemoglobin Carboxyhemoglobin Sodium Potassium Chloride Carbon Dioxide BUN Creatinine Glucose POC Glucose 197 H 167 H 157 H Hemoglobin A1c Lactic Acid Calcium Phosphorus Magnesium Transferrin AST ALT Alkaline Phosphatase Total Creatine Kinase CK-MB (CK-2) Serum Total Protein Total Protein Albumin Ceevc-5-Ozpmzdjlz Pkbxt-1-Wmiaxlzqs Gamma Globulins PEP Interpretation HDL Cholesterol TSH Arterial Blood Glucose Arterial Blood Ionized Calcium Urine WBC (Auto) Urine Creatinine Urine Total Protein Crossmatch 05/01/21 05/02/21 05/02/21 23:25 04:00 04:00 WBC 14.2 H RBC 2.61 L Hgb 6.9 L Hct 22.1 L MCH 27 L RDW 16.1 H Plt Count Seg Neuts % (Manual) Lymphocytes % (Manual) Nucleated RBC % Seg Neutrophils # Man Lymphocytes # (Manual) PT ABG pH POC ABG pCO2 POC ABG pO2 ABG pO2 ABG O2 Saturation ABG Base Excess ABG Hemoglobin ABG Oxyhemoglobin ABG Potassium ABG Chloride ABG Glucose Oxyhemoglobin Carboxyhemoglobin Sodium Potassium Chloride Carbon Dioxide BUN 49 H Creatinine 2.8 H Glucose 117 H POC Glucose 147 H Hemoglobin A1c Lactic Acid Calcium Phosphorus Magnesium Transferrin AST ALT Alkaline Phosphatase Total Creatine Kinase CK-MB (CK-2) Serum Total Protein Total Protein Albumin Xecye-4-Pfkbtntsv Hqlmp-3-Ilghrjamx Gamma Globulins PEP Interpretation HDL Cholesterol TSH Arterial Blood Glucose Arterial Blood Ionized Calcium Urine WBC (Auto) Urine Creatinine Urine Total Protein Crossmatch 05/02/21 05/02/21 05/02/21 04:34 05:23 12:00 WBC RBC Hgb Hct MCH RDW Plt Count Seg Neuts % (Manual) Lymphocytes % (Manual) Nucleated RBC % Seg Neutrophils # Man Lymphocytes # (Manual) PT ABG pH 7.487 H POC ABG pCO2 POC ABG pO2 78.6 L ABG pO2 ABG O2 Saturation ABG Base Excess ABG Hemoglobin 11.5 L ABG Oxyhemoglobin ABG Potassium ABG Chloride ABG Glucose 122 H Oxyhemoglobin Carboxyhemoglobin Sodium Potassium Chloride Carbon Dioxide BUN Creatinine Glucose POC Glucose 119 H Hemoglobin A1c Lactic Acid Calcium Phosphorus Magnesium Transferrin AST ALT Alkaline Phosphatase Total Creatine Kinase CK-MB (CK-2) Serum Total Protein Total Protein Albumin Twxfc-1-Ehktkgzpx Jpyvn-5-Iwteepebm Gamma Globulins PEP Interpretation HDL Cholesterol TSH Arterial Blood Glucose 122 H Arterial Blood Ionized Calcium Urine WBC (Auto) Urine Creatinine Urine Total Protein Crossmatch See Detail 05/02/21 05/02/21 05/02/21 12:04 17:29 23:36 WBC RBC Hgb Hct MCH RDW Plt Count Seg Neuts % (Manual) Lymphocytes % (Manual) Nucleated RBC % Seg Neutrophils # Man Lymphocytes # (Manual) PT ABG pH POC ABG pCO2 POC ABG pO2 ABG pO2 ABG O2 Saturation ABG Base Excess ABG Hemoglobin ABG Oxyhemoglobin ABG Potassium ABG Chloride ABG Glucose Oxyhemoglobin Carboxyhemoglobin Sodium Potassium Chloride Carbon Dioxide BUN Creatinine Glucose POC Glucose 115 H 120 H 130 H Hemoglobin A1c Lactic Acid Calcium Phosphorus Magnesium Transferrin AST ALT Alkaline Phosphatase Total Creatine Kinase CK-MB (CK-2) Serum Total Protein Total Protein Albumin Flung-7-Ldncjwznb Qmmvw-5-Ovcdqyohf Gamma Globulins PEP Interpretation HDL Cholesterol TSH Arterial Blood Glucose Arterial Blood Ionized Calcium Urine WBC (Auto) Urine Creatinine Urine Total Protein Crossmatch 05/03/21 05/03/21 05/03/21 04:00 04:00 17:26 WBC 13.9 H RBC 3.22 L Hgb 8.7 L Hct 27.4 L MCH 27 L RDW 15.8 H Plt Count Seg Neuts % (Manual) Lymphocytes % (Manual) Nucleated RBC % Seg Neutrophils # Man Lymphocytes # (Manual) PT ABG pH POC ABG pCO2 POC ABG pO2 ABG pO2 ABG O2 Saturation ABG Base Excess ABG Hemoglobin ABG Oxyhemoglobin ABG Potassium ABG Chloride ABG Glucose Oxyhemoglobin Carboxyhemoglobin Sodium 146 H Potassium 3.5 L Chloride 107.5 H Carbon Dioxide BUN 40 H Creatinine 2.5 H Glucose 104 H POC Glucose 123 H Hemoglobin A1c Lactic Acid Calcium Phosphorus Magnesium Transferrin AST 53 H ALT Alkaline Phosphatase 149 H Total Creatine Kinase CK-MB (CK-2) Serum Total Protein Total Protein 5.2 L Albumin 1.5 L Laayd-8-Irundtzdo Ebwdk-3-Yxzgkyicw Gamma Globulins PEP Interpretation HDL Cholesterol TSH Arterial Blood Glucose Arterial Blood Ionized Calcium Urine WBC (Auto) Urine Creatinine Urine Total Protein Crossmatch 05/04/21 05/04/21 05/04/21 01:24 04:48 04:48 WBC 14.3 H RBC 3.14 L Hgb 8.5 L Hct 26.3 L MCH 27 L RDW 15.8 H Plt Count Seg Neuts % (Manual) Lymphocytes % (Manual) Nucleated RBC % Seg Neutrophils # Man Lymphocytes # (Manual) PT ABG pH POC ABG pCO2 POC ABG pO2 ABG pO2 ABG O2 Saturation ABG Base Excess ABG Hemoglobin ABG Oxyhemoglobin ABG Potassium ABG Chloride ABG Glucose Oxyhemoglobin Carboxyhemoglobin Sodium Potassium 3.5 L Chloride Carbon Dioxide BUN 58 H Creatinine 3.4 H Glucose 168 H POC Glucose 146 H Hemoglobin A1c Lactic Acid Calcium Phosphorus 5.30 H Magnesium Transferrin AST ALT Alkaline Phosphatase Total Creatine Kinase CK-MB (CK-2) Serum Total Protein Total Protein Albumin Thico-3-Dyoehhboi Pqfqs-7-Olvunrhcv Gamma Globulins PEP Interpretation HDL Cholesterol 24 L TSH Arterial Blood Glucose Arterial Blood Ionized Calcium Urine WBC (Auto) Urine Creatinine Urine Total Protein Crossmatch 05/04/21 05/04/21 05/04/21 05:15 11:24 16:01 WBC RBC Hgb Hct MCH RDW Plt Count Seg Neuts % (Manual) Lymphocytes % (Manual) Nucleated RBC % Seg Neutrophils # Man Lymphocytes # (Manual) PT ABG pH POC ABG pCO2 POC ABG pO2 ABG pO2 ABG O2 Saturation ABG Base Excess ABG Hemoglobin ABG Oxyhemoglobin ABG Potassium ABG Chloride ABG Glucose Oxyhemoglobin Carboxyhemoglobin Sodium Potassium Chloride Carbon Dioxide BUN Creatinine Glucose POC Glucose 162 H 145 H 148 H Hemoglobin A1c Lactic Acid Calcium Phosphorus Magnesium Transferrin AST ALT Alkaline Phosphatase Total Creatine Kinase CK-MB (CK-2) Serum Total Protein Total Protein Albumin Wprdk-9-Xrgncprhi Faqih-3-Tknmshshx Gamma Globulins PEP Interpretation HDL Cholesterol TSH Arterial Blood Glucose Arterial Blood Ionized Calcium Urine WBC (Auto) Urine Creatinine Urine Total Protein Crossmatch 05/04/21 05/05/21 05/05/21 23:32 04:00 05:14 WBC RBC Hgb Hct MCH RDW Plt Count Seg Neuts % (Manual) Lymphocytes % (Manual) Nucleated RBC % Seg Neutrophils # Man Lymphocytes # (Manual) PT ABG pH POC ABG pCO2 POC ABG pO2 ABG pO2 ABG O2 Saturation ABG Base Excess ABG Hemoglobin ABG Oxyhemoglobin ABG Potassium ABG Chloride ABG Glucose Oxyhemoglobin Carboxyhemoglobin Sodium Potassium 3.4 L Chloride Carbon Dioxide BUN 43 H Creatinine 2.7 H Glucose 124 H POC Glucose 134 H 120 H Hemoglobin A1c Lactic Acid Calcium 8.2 L Phosphorus Magnesium Transferrin AST ALT Alkaline Phosphatase Total Creatine Kinase CK-MB (CK-2) Serum Total Protein Total Protein Albumin Fuiva-3-Obzqzlffd Ymahi-4-Gfyiiaxcp Gamma Globulins PEP Interpretation HDL Cholesterol TSH Arterial Blood Glucose Arterial Blood Ionized Calcium Urine WBC (Auto) Urine Creatinine Urine Total Protein Crossmatch
--- NOTE | 2021-05-05 12:04 | Progress Note ---
Assessment and Plan Cultures: 04/21/2021 blood culture: No growth 04/21/2021 COVID-19 PCR: Negative 04/26/2021 sputum culture: Roselyn nonalbicans 04/29/2021 tracheal aspirate culture: Moderate growth of usual respiratory stanley 04/29/2021 blood culture: No growth 05/02/2021 urine culture: yeast A/P: 80-year-old female who is a [place] [facility] resident, with hypothyroidism, GERD, hyperlipidemia, schizophrenia, dementia was admitted on 04/20/2021 after being found unresponsive by the staff: #Septic shock: Likely from pneumonia and UTI. 04/29/2021 UA showed significant pyuria. Luther was changed. #Acute respiratory failure: On the vent #Acute renal failure: Renally adjust antibiotics. On dialysis. #Acute metabolic encephalopathy: Initially related to severe hyponatremia which peaked at sodium of 179. #Acute CVA: neurology following. MRA and [place] planned Recs: -f/u urine culture -continue IV meropenem, renally adjusted, D4 of 7 -typically candiduria does not need antifungal therapy especially since Luther was changed. However, given septic shock, treat with fluconazole 200 mg daily x 5 days Juanita Darling MD, FACP, [facility] ([facility]) O: [phone] F: [phone] Subjective Date of service: 05/05/21 Principal diagnosis: Acute respiratory failure Interval history: No fever. Remains on the vent. Off pressors. Objective - Exam Narrative Exam: Physical Exam: Constitutional: sedated, intubated, on the vent Head, Ears, Nose: Normocephalic, atraumatic. External ears, nose normal Eyes: Conjunctivae/corneas clear. No icterus. No ptosis. Neck: intubated Oral: intubated Cardiovascular: S1, S2 + Respiratory: AE fair bilaterally and equal GI: Soft, bowel sounds + Musculoskeletal: Anasarca + Skin: No rash or abscess Hem/Lymphatic: No palpable cervical or supraclavicular nodes. No lymphangitis Psych: no agitation Neurological: sedated, intubated, on the vent, exam limited - Constitutional Vitals: Vital Signs Temp Pulse Resp BP Pulse Ox 97.9 F 83 16 154/82 97 05/05/21 08:00 05/05/21 10:15 05/05/21 10:15 05/05/21 10:15 05/05/21 10:15 Temperature -Last 24 Hours Temperature 97.9 F Temperature 97.1 F Temperature 98.0 F Temperature 97.5 F Temperature 96.3 F Temperature 98.9 F - Labs CBC & Chem 7: 05/04/21 04:48 05/05/21 04:00 Labs: Abnormal lab results 05/04/21 05/04/21 05/05/21 Range/Units 16:01 23:32 04:00 Potassium 3.4 L (3.6-5.0) mmol/L BUN 43 H (7-17) mg/dL Creatinine 2.7 H (0.6-1.2) mg/dL Glucose 124 H (65-100) mg/dL POC Glucose 148 H 134 H (70-105) mg/dL Calcium 8.2 L (8.4-10.2) mg/dL 05/05/21 Range/Units 05:14 Potassium (3.6-5.0) mmol/L BUN (7-17) mg/dL Creatinine (0.6-1.2) mg/dL Glucose (65-100) mg/dL POC Glucose 120 H (70-105) mg/dL Calcium (8.4-10.2) mg/dL
--- NOTE | 2021-05-05 12:09 | Magnetic Resonance Report ---
MR MRA/MRV head wo con INDICATION / CLINICAL INFORMATION: 80 years Female; cva. TECHNIQUE: 3-D time of flight. NASCET type criteria used to evaluate stenoses. COMPARISON: None available. FINDINGS: INTERNAL CAROTID ARTERIES: Irregularity seen along the internal carotid arteries bilaterally, [place] related atherosclerotic disease. Mild to moderate narrowing may be present in the anterior genu of the cavernous portion of both inter nal carotid arteries. VERTEBROBASILAR SYSTEM: Right dominant vertebral system suggested. Areas of mild vessel irregularity seen, most likely related to atherosclerotic disease. Basilar artery is widely patent. DISTAL BRANCHES: Distal branches of the anterior, middle, and posterior cerebral arteries are fairly symmetric in appearance and number, particularly when reviewing source images Focal area of mild to moderate narrowing suggested at the origin of both A1 segments. ANEURYSM: None identified. There is suggestion of a small infundibulum near the expected location of the superior hypophyseal artery on the left-of no clinical significance. IMPRESSION: Scattered areas of narrowing, as described above, with most prevalent findings in the internal caroti d arteries. Signer Name: Fabio Monge MD, III Signed: 05/05/2021 12:05 PM Workstation Name: [id number]-[id number]
--- NOTE | 2021-05-05 12:12 | Magnetic Resonance Report ---
MR MRA/MRV neck wo con INDICATION / CLINICAL INFORMATION: 80 years Female; cva. TECHNIQUE: 2-D time of flight performed prior to contrast. NASCET criteria used for stenosis evaluati on. COMPARISON: None available. FINDINGS: ARCH: Aortic arch and proximal great vessels are not well visualized on this exam. However, normal ao rtic arch branching is suggested. CAROTID ARTERIES: The visualized common and internal carotid arteries are patent. Flow void versus at herosclerotic disease seen in the internal carotid bulb regions bilaterally-left more prominent than right-recommend correlation with carotid Doppler analysis. I do not believe hemodynamically significa nt narrowing is present. VERTEBRAL ARTERIES: Slight right dominant vertebral system seen. No significant stenosis appreciated. IMPRESSION: No significant stenosis appreciated on this unenhanced MRA of the neck. Carotid Doppler a nalysis may be of benefit, as described above. Signer Name: Fabio Monge MD, III Signed: 05/05/2021 12:08 PM Workstation Name: [id number]
[2021-05-05] MEDS: FAMOTIDINE 10 MG TAB FEEDTUBE SCH ×3 (12:14→21:30)
[2021-05-05] MEDS: SENNOSIDES/DOCUSATE SODIUM 8.6/50 MG TAB FEEDTUBE SCH (12:14)
[2021-05-05] MEDS: ASPIRIN 81 MG TAB CHEW FEEDTUBE SCH ×2 (12:14→15:49)
--- NOTE | 2021-05-05 14:36 | Progress Note ---
Assessment and Plan 80 y/o female with altered mental state, severe electrolyte imbalance with presumptive acute renal failure and hypothermia. 05/05/21: follow up neurology notes. They are discussing with cards the LINCOLN. Continue vent support. Poor prognosis. 05/04/21: follow up MRA when done. LINCOLN pending. HD per renal. Daily PSV trials as tolerated. Poor prognosis given MRI findings and lack of responsiveness off sedation. 05/03/21: Follow up Neurology recs for today. Attempt PSV trials. HD on yesterday. Very very guarded prognosis. 05/02/21: MRI today. Repeat cultures. HD per renal. Once MRI results back will discuss with Neurosurgery to see if anything further should be done. Abx per ID. Overall prognosis is very guarded to poor. 04/29/21: Will reach out to neuro after 24-48 hours post spinal tap pending any change in mentation. If improvement, may need to consider shunt placement. If not, not sure that there is anything they can offer. if they still want MRI, then can obtain. Now spiking temps. Blood cultures and UA. Given time frame in Hospital will place on Vanc and Cefepime. Guarded prognosis. HD per renal. Given anasarca, will ask renal about trying to remove volume. 04/28/21: Will discuss with renal about HD again today. MRI vs LP (large amount). Coags are ok. Will attempt to get at least one of these done today. Patient is still on 80% but sat is 100. Will ask [facility] about placing ART line today. Wean FiO2 as tolerated. Guarded prognosis. 04/27/21: HD today per renal. Vascath placed and awaiting CXR for conformation of good placement (done and good). Vent weaning as tolerated for sats >88%. ABG in the AM. Will check Coags in the am and hopeful these are stable. Platelets need to above 50K. Would like to do large volume spinal tap to see if this helps with mentation. Will also obtain MRI once oxygen requirement improves. 04/26/21: WIll electively intubate and then obtain MRI. Pending MRI results, will likely order large volume spinal tap to assess if NPH is a factor or not. Guarded prognosis. Electrolytes are improving. 04/25/21: Continue to follow renal recs. Will reach out to POA either today or tomorrow for further updates. Follow up renal recs. Monitor electrolytes and renal function. Guarded prognosis. 1. Neuro-reached out to neuro surgery, placed consult in regards to CT findings 2. Renal-appreciate help and recs, will follow IV hydration recommendations 3. Blood cultures. Urine was negative 4. Jorge Hugger for temp Guarded prognosis CCT 31 minutes. Subjective Date of service: 05/05/21 Principal diagnosis: Acute respiratory failure Interval history: No acute events. MRA done today. No LINCOLN yet. Objective Vital Signs - 12hr 05/05/21 05/05/21 05/05/21 02:45 03:00 03:15 Temperature Pulse Rate 83 75 77 Pulse Rate [ From Monitor] Respiratory 20 14 14 Rate Blood Pressure 120/60 99/52 99/52 O2 Sat by Pulse 97 96 97 Oximetry 05/05/21 05/05/21 05/05/21 03:30 03:45 04:00 Temperature 97.1 F L Pulse Rate 76 79 Pulse Rate [ 76 From Monitor] Respiratory 14 16 18 Rate Blood Pressure 94/53 94/53 O2 Sat by Pulse 96 98 97 Oximetry 05/05/21 05/05/21 05/05/21 04:01 04:03 04:15 Temperature Pulse Rate 83 78 74 Pulse Rate [ From Monitor] Respiratory 14 14 Rate Blood Pressure 112/51 129/57 89/52 O2 Sat by Pulse 99 98 97 Oximetry 05/05/21 05/05/21 05/05/21 04:31 04:45 05:00 Temperature Pulse Rate 82 80 86 Pulse Rate [ From Monitor] Respiratory 25 H 15 22 Rate Blood Pressure 114/51 132/64 135/66 O2 Sat by Pulse 98 98 98 Oximetry 05/05/21 05/05/21 05/05/21 05:15 05:30 05:45 Temperature Pulse Rate 85 83 80 Pulse Rate [ From Monitor] Respiratory 16 23 14 Rate Blood Pressure 127/65 119/59 140/63 O2 Sat by Pulse 98 99 98 Oximetry 05/05/21 05/05/21 05/05/21 06:01 06:15 06:30 Temperature Pulse Rate 73 76 81 Pulse Rate [ From Monitor] Respiratory 14 14 16 Rate Blood Pressure 101/47 125/63 135/69 O2 Sat by Pulse 96 98 98 Oximetry 05/05/21 05/05/21 05/05/21 06:45 07:00 07:15 Temperature Pulse Rate 82 75 84 Pulse Rate [ From Monitor] Respiratory 16 14 18 Rate Blood Pressure 132/65 122/58 126/70 O2 Sat by Pulse 99 98 98 Oximetry 05/05/21 05/05/21 05/05/21 07:30 07:45 08:00 Temperature 97.9 F Pulse Rate 78 82 83 Pulse Rate [ 83 From Monitor] Respiratory 18 15 22 Rate Blood Pressure 110/65 107/65 113/64 O2 Sat by Pulse 98 98 97 Oximetry 05/05/21 05/05/21 05/05/21 08:15 08:31 08:45 Temperature Pulse Rate 82 77 83 Pulse Rate [ From Monitor] Respiratory 33 H 14 18 Rate Blood Pressure 113/64 134/58 132/69 O2 Sat by Pulse 100 97 96 Oximetry 05/05/21 05/05/21 05/05/21 09:00 09:15 09:31 Temperature Pulse Rate 80 79 85 Pulse Rate [ From Monitor] Respiratory 14 22 13 Rate Blood Pressure 130/61 122/65 177/80 O2 Sat by Pulse 96 96 100 Oximetry 05/05/21 05/05/21 05/05/21 09:45 10:00 10:15 Temperature Pulse Rate 81 86 83 Pulse Rate [ From Monitor] Respiratory 15 15 16 Rate Blood Pressure 177/80 154/82 154/82 O2 Sat by Pulse 96 97 97 Oximetry 05/05/21 05/05/21 05/05/21 10:30 10:46 11:52 Temperature Pulse Rate 84 83 103 H Pulse Rate [ From Monitor] Respiratory 13 18 17 Rate Blood Pressure 131/63 142/77 142/77 O2 Sat by Pulse 96 100 100 Oximetry 05/05/21 05/05/21 05/05/21 12:00 12:07 12:16 Temperature Pulse Rate 97 H 86 84 Pulse Rate [ 97 H From Monitor] Respiratory 17 15 Rate Blood Pressure 127/68 127/68 100/59 O2 Sat by Pulse 95 96 94 Oximetry 05/05/21 05/05/21 05/05/21 12:30 12:45 13:00 Temperature Pulse Rate 93 H 87 81 Pulse Rate [ From Monitor] Respiratory 14 23 14 Rate Blood Pressure 109/60 115/82 110/57 O2 Sat by Pulse 93 96 94 Oximetry 05/05/21 05/05/21 13:15 13:30 Temperature Pulse Rate 88 91 H Pulse Rate [ From Monitor] Respiratory 16 17 Rate Blood Pressure 115/67 106/67 O2 Sat by Pulse 97 96 Oximetry Constitutional: other (critically ill, somnolent, on vent) Eyes: non-icteric ENT: oropharynx dry Effort: other (tachypneic but not labored) Ascultation: Bilateral: clear Cardiovascular: regular rate and rhythm Gastrointestinal: normoactive bowel sounds Integumentary: normal Extremities: no cyanosis, no edema, pink and warm Neurologic: unable to assess Psychiatric: other (unable to assess) CBC and BMP: 05/06/21 04:27 05/06/21 04:00 ABG, PT/INR, D-dimer: ABG ABG pH 7.487 (7.320-7.450) H 05/02/21 04:34 POC ABG pCO2 35.3 mmHg (32.0-48.0) 05/02/21 04:34 ABG pCO2 31.6 mm Hg 04/21/21 15:47 POC ABG pO2 78.6 mmHg (83-108) L 05/02/21 04:34 ABG pO2 168.1 mm Hg (80.0-90.0) H 04/21/21 15:47 POC ABG HCO3 26.1 05/02/21 04:34 ABG O2 Saturation 96.0 (0-100) 05/02/21 04:34 PT/INR, D-dimer PT 15.3 Sec. (12.2-14.9) H 04/28/21 05:00 INR 1.09 (0.87-1.13) 04/28/21 05:00 Abnormal lab findings: Abnormal Labs 04/20/21 04/20/21 04/20/21 17:10 17:10 17:10 WBC 17.4 H RBC 5.19 H Hgb Hct 46.8 H MCH 27 L RDW 17.2 H Plt Count Seg Neuts % (Manual) 98.0 H Lymphocytes % (Manual) 2.0 L Nucleated RBC % 1.0 H Seg Neutrophils # Man 17.1 H Lymphocytes # (Manual) 0.3 L PT ABG pH POC ABG pCO2 POC ABG pO2 ABG pO2 ABG O2 Saturation ABG Base Excess ABG Hemoglobin ABG Oxyhemoglobin ABG Potassium ABG Chloride ABG Glucose Oxyhemoglobin Carboxyhemoglobin Sodium 173 H* Potassium Chloride 132.9 H Carbon Dioxide 17 L BUN 120 H Creatinine 4.2 H Glucose 762 H* POC Glucose Hemoglobin A1c Lactic Acid Calcium Phosphorus Magnesium 3.80 H Transferrin AST 72 H ALT 63 H Alkaline Phosphatase 148 H Total Creatine Kinase 3697 H CK-MB (CK-2) 36.0 H Serum Total Protein Total Protein Albumin 2.2 L Hhbwx-4-Ztbjraavm Jdlub-1-Szgrwmaeb Gamma Globulins PEP Interpretation HDL Cholesterol TSH Arterial Blood Glucose Arterial Blood Ionized Calcium Urine WBC (Auto) Urine Creatinine Urine Total Protein Crossmatch 04/20/21 04/20/21 04/20/21 17:10 17:10 18:55 WBC RBC Hgb Hct MCH RDW Plt Count Seg Neuts % (Manual) Lymphocytes % (Manual) Nucleated RBC % Seg Neutrophils # Man Lymphocytes # (Manual) PT ABG pH POC ABG pCO2 POC ABG pO2 ABG pO2 ABG O2 Saturation ABG Base Excess ABG Hemoglobin ABG Oxyhemoglobin ABG Potassium ABG Chloride ABG Glucose Oxyhemoglobin Carboxyhemoglobin Sodium Potassium Chloride Carbon Dioxide BUN Creatinine Glucose POC Glucose 574 H Hemoglobin A1c Lactic Acid 2.60 H* Calcium Phosphorus Magnesium Transferrin AST ALT Alkaline Phosphatase Total Creatine Kinase CK-MB (CK-2) Serum Total Protein Total Protein Albumin Vjhww-6-Eycvioyjz Byjcf-5-Efyryzfyf Gamma Globulins PEP Interpretation HDL Cholesterol TSH 6.040 H Arterial Blood Glucose Arterial Blood Ionized Calcium Urine WBC (Auto) Urine Creatinine Urine Total Protein Crossmatch 04/20/21 04/20/21 04/21/21 22:58 22:58 00:14 WBC RBC Hgb Hct MCH RDW Plt Count Seg Neuts % (Manual) Lymphocytes % (Manual) Nucleated RBC % Seg Neutrophils # Man Lymphocytes # (Manual) PT ABG pH POC ABG pCO2 POC ABG pO2 ABG pO2 ABG O2 Saturation ABG Base Excess ABG Hemoglobin ABG Oxyhemoglobin ABG Potassium ABG Chloride ABG Glucose Oxyhemoglobin Carboxyhemoglobin Sodium 172 H* Potassium 3.2 L Chloride 134.2 H Carbon Dioxide 17 L BUN 112 H Creatinine 3.8 H Glucose 803 H* POC Glucose > 600 H Hemoglobin A1c Lactic Acid Calcium 8.3 L Phosphorus Magnesium 3.50 H Transferrin AST ALT Alkaline Phosphatase Total Creatine Kinase CK-MB (CK-2) Serum Total Protein Total Protein Albumin Ystco-1-Gybmhzctt Gqljq-5-Bmhnopwwv Gamma Globulins PEP Interpretation HDL Cholesterol TSH Arterial Blood Glucose Arterial Blood Ionized Calcium Urine WBC (Auto) Urine Creatinine Urine Total Protein Crossmatch 04/21/21 04/21/21 04/21/21 00:22 02:01 03:11 WBC RBC Hgb Hct MCH RDW Plt Count Seg Neuts % (Manual) Lymphocytes % (Manual) Nucleated RBC % Seg Neutrophils # Man Lymphocytes # (Manual) PT ABG pH POC ABG pCO2 POC ABG pO2 ABG pO2 ABG O2 Saturation ABG Base Excess ABG Hemoglobin ABG Oxyhemoglobin ABG Potassium ABG Chloride ABG Glucose Oxyhemoglobin Carboxyhemoglobin Sodium 176 H* 175 H* Potassium 2.9 L* 3.0 L Chloride 139.9 H 136.2 H Carbon Dioxide 17 L 19 L BUN 113 H 112 H Creatinine 3.9 H 3.6 H Glucose 729 H* 582 H* POC Glucose 404 H Hemoglobin A1c Lactic Acid Calcium Phosphorus Magnesium Transferrin AST ALT Alkaline Phosphatase Total Creatine Kinase CK-MB (CK-2) Serum Total Protein Total Protein Albumin Uvgbj-9-Khstsjoet Omscy-5-Yrmyuzwpv Gamma Globulins PEP Interpretation HDL Cholesterol TSH Arterial Blood Glucose Arterial Blood Ionized Calcium Urine WBC (Auto) Urine Creatinine Urine Total Protein Crossmatch 04/21/21 04/21/21 04/21/21 03:20 03:41 03:41 WBC 14.1 H RBC Hgb Hct MCH 27 L RDW 16.8 H Plt Count 114 L Seg Neuts % (Manual) 97.0 H Lymphocytes % (Manual) 3.0 L Nucleated RBC % 1.0 H Seg Neutrophils # Man 13.7 H Lymphocytes # (Manual) 0.4 L PT ABG pH POC ABG pCO2 POC ABG pO2 ABG pO2 52.3 L ABG O2 Saturation 84.5 L ABG Base Excess -2.9 L ABG Hemoglobin ABG Oxyhemoglobin ABG Potassium ABG Chloride ABG Glucose Oxyhemoglobin 82.9 L Carboxyhemoglobin Sodium 179 H* Potassium 2.9 L* Chloride 138.2 H Carbon Dioxide 20 L BUN 111 H Creatinine 3.7 H Glucose 465 H POC Glucose Hemoglobin A1c Lactic Acid Calcium Phosphorus Magnesium Transferrin AST 73 H ALT 61 H Alkaline Phosphatase 144 H Total Creatine Kinase CK-MB (CK-2) Serum Total Protein Total Protein Albumin 2.5 L Qicpi-3-Euoluboor Dqyjr-0-Okqxmetet Gamma Globulins PEP Interpretation HDL Cholesterol TSH Arterial Blood Glucose Arterial Blood Ionized Calcium Urine WBC (Auto) Urine Creatinine Urine Total Protein Crossmatch 04/21/21 04/21/21 04/21/21 04:24 05:45 06:47 WBC RBC Hgb Hct MCH RDW Plt Count Seg Neuts % (Manual) Lymphocytes % (Manual) Nucleated RBC % Seg Neutrophils # Man Lymphocytes # (Manual) PT ABG pH POC ABG pCO2 POC ABG pO2 ABG pO2 ABG O2 Saturation ABG Base Excess ABG Hemoglobin ABG Oxyhemoglobin ABG Potassium ABG Chloride ABG Glucose Oxyhemoglobin Carboxyhemoglobin Sodium Potassium Chloride Carbon Dioxide BUN Creatinine Glucose POC Glucose 353 H 280 H 260 H Hemoglobin A1c Lactic Acid Calcium Phosphorus Magnesium Transferrin AST ALT Alkaline Phosphatase Total Creatine Kinase CK-MB (CK-2) Serum Total Protein Total Protein Albumin Ipuxk-9-Bhecdnnex Ttjfo-1-Zzyrbeqot Gamma Globulins PEP Interpretation HDL Cholesterol TSH Arterial Blood Glucose Arterial Blood Ionized Calcium Urine WBC (Auto) Urine Creatinine Urine Total Protein Crossmatch 04/21/21 04/21/21 04/21/21 08:01 11:11 12:51 WBC RBC Hgb Hct MCH RDW Plt Count Seg Neuts % (Manual) Lymphocytes % (Manual) Nucleated RBC % Seg Neutrophils # Man Lymphocytes # (Manual) PT ABG pH POC ABG pCO2 POC ABG pO2 ABG pO2 ABG O2 Saturation ABG Base Excess ABG Hemoglobin ABG Oxyhemoglobin ABG Potassium ABG Chloride ABG Glucose Oxyhemoglobin Carboxyhemoglobin Sodium Potassium Chloride Carbon Dioxide BUN Creatinine Glucose POC Glucose 68 L 146 H Hemoglobin A1c Lactic Acid Calcium Phosphorus Magnesium Transferrin AST ALT Alkaline Phosphatase Total Creatine Kinase CK-MB (CK-2) Serum Total Protein Total Protein Albumin Nqkvv-1-Eztnjddhc Wudfi-2-Boehmbgqh Gamma Globulins PEP Interpretation HDL Cholesterol TSH Arterial Blood Glucose Arterial Blood Ionized Calcium Urine WBC (Auto) Urine Creatinine 44.3 H Urine Total Protein 12 H Crossmatch 04/21/21 04/21/21 04/21/21 13:41 14:40 15:47 WBC RBC Hgb Hct MCH RDW Plt Count Seg Neuts % (Manual) Lymphocytes % (Manual) Nucleated RBC % Seg Neutrophils # Man Lymphocytes # (Manual) PT ABG pH 7.275 L 7.486 H POC ABG pCO2 POC ABG pO2 63.4 L ABG pO2 168.1 H ABG O2 Saturation 99.1 H ABG Base Excess ABG Hemoglobin 8.4 L 8.9 L ABG Oxyhemoglobin 89.5 L ABG Potassium ABG Chloride 108.0 H ABG Glucose 404 H Oxyhemoglobin Carboxyhemoglobin Sodium Potassium Chloride Carbon Dioxide BUN Creatinine Glucose POC Glucose 186 H Hemoglobin A1c Lactic Acid Calcium Phosphorus Magnesium Transferrin AST ALT Alkaline Phosphatase Total Creatine Kinase CK-MB (CK-2) Serum Total Protein Total Protein Albumin Zywuj-8-Bswiujsva Atijq-8-Pskiczaht Gamma Globulins PEP Interpretation HDL Cholesterol TSH Arterial Blood Glucose 404 H Arterial Blood Ionized Calcium Urine WBC (Auto) Urine Creatinine Urine Total Protein Crossmatch 04/21/21 04/21/21 04/21/21 16:25 17:57 18:49 WBC RBC Hgb Hct MCH RDW Plt Count Seg Neuts % (Manual) Lymphocytes % (Manual) Nucleated RBC % Seg Neutrophils # Man Lymphocytes # (Manual) PT ABG pH POC ABG pCO2 POC ABG pO2 ABG pO2 ABG O2 Saturation ABG Base Excess ABG Hemoglobin ABG Oxyhemoglobin ABG Potassium ABG Chloride ABG Glucose Oxyhemoglobin Carboxyhemoglobin Sodium 174 H* Potassium 7.2 H* D Chloride 138.2 H Carbon Dioxide 21 L BUN 99 H Creatinine 4.0 H Glucose 157 H POC Glucose 172 H 143 H Hemoglobin A1c Lactic Acid Calcium Phosphorus Magnesium Transferrin AST 134 H ALT 71 H Alkaline Phosphatase 135 H Total Creatine Kinase 3504 H CK-MB (CK-2) Serum Total Protein Total Protein Albumin 2.2 L Zedbj-7-Bqvpguilt Rzvuh-3-Zionzdwmb Gamma Globulins PEP Interpretation HDL Cholesterol TSH Arterial Blood Glucose Arterial Blood Ionized Calcium Urine WBC (Auto) Urine Creatinine Urine Total Protein Crossmatch 04/21/21 04/21/21 04/21/21 19:10 20:26 20:53 WBC RBC Hgb Hct MCH RDW Plt Count Seg Neuts % (Manual) Lymphocytes % (Manual) Nucleated RBC % Seg Neutrophils # Man Lymphocytes # (Manual) PT ABG pH POC ABG pCO2 POC ABG pO2 ABG pO2 ABG O2 Saturation ABG Base Excess ABG Hemoglobin ABG Oxyhemoglobin ABG Potassium ABG Chloride ABG Glucose Oxyhemoglobin Carboxyhemoglobin Sodium Potassium Chloride Carbon Dioxide BUN Creatinine Glucose POC Glucose 126 H 190 H 116 H Hemoglobin A1c Lactic Acid Calcium Phosphorus Magnesium Transferrin AST ALT Alkaline Phosphatase Total Creatine Kinase CK-MB (CK-2) Serum Total Protein Total Protein Albumin Zxend-0-Twoeuhqxv Wjctf-7-Zuohvwsne Gamma Globulins PEP Interpretation HDL Cholesterol TSH Arterial Blood Glucose Arterial Blood Ionized Calcium Urine WBC (Auto) Urine Creatinine Urine Total Protein Crossmatch 04/21/21 04/21/21 04/21/21 21:52 22:55 23:00 WBC RBC Hgb Hct MCH RDW Plt Count Seg Neuts % (Manual) Lymphocytes % (Manual) Nucleated RBC % Seg Neutrophils # Man Lymphocytes # (Manual) PT ABG pH POC ABG pCO2 POC ABG pO2 ABG pO2 ABG O2 Saturation ABG Base Excess ABG Hemoglobin ABG Oxyhemoglobin ABG Potassium ABG Chloride ABG Glucose Oxyhemoglobin Carboxyhemoglobin Sodium 176 H* Potassium Chloride 140.0 H Carbon Dioxide 20 L BUN 98 H Creatinine 3.9 H Glucose 206 H POC Glucose 135 H 158 H Hemoglobin A1c Lactic Acid Calcium Phosphorus Magnesium Transferrin AST ALT Alkaline Phosphatase Total Creatine Kinase 3240 H CK-MB (CK-2) Serum Total Protein Total Protein Albumin Waofo-9-Tboqfzkdc Cuwjb-3-Xnldindsx Gamma Globulins PEP Interpretation HDL Cholesterol TSH Arterial Blood Glucose Arterial Blood Ionized Calcium Urine WBC (Auto) Urine Creatinine Urine Total Protein Crossmatch 04/22/21 04/22/21 04/22/21 00:01 00:39 00:58 WBC RBC Hgb Hct MCH RDW Plt Count Seg Neuts % (Manual) Lymphocytes % (Manual) Nucleated RBC % Seg Neutrophils # Man Lymphocytes # (Manual) PT ABG pH POC ABG pCO2 POC ABG pO2 ABG pO2 ABG O2 Saturation ABG Base Excess ABG Hemoglobin ABG Oxyhemoglobin ABG Potassium ABG Chloride ABG Glucose Oxyhemoglobin Carboxyhemoglobin Sodium 171 H* Potassium Chloride Carbon Dioxide BUN Creatinine Glucose POC Glucose 182 H 176 H Hemoglobin A1c Lactic Acid Calcium Phosphorus Magnesium Transferrin AST ALT Alkaline Phosphatase Total Creatine Kinase CK-MB (CK-2) Serum Total Protein Total Protein Albumin Zalqj-3-Efaubzjbx Gjhog-6-Alzmknvpj Gamma Globulins PEP Interpretation HDL Cholesterol TSH Arterial Blood Glucose Arterial Blood Ionized Calcium Urine WBC (Auto) Urine Creatinine Urine Total Protein Crossmatch 04/22/21 04/22/21 04/22/21 01:04 04:52 06:07 WBC 11.2 H RBC Hgb Hct 44.3 H MCH 27 L RDW 17.1 H Plt Count 86 L Seg Neuts % (Manual) 86.0 H Lymphocytes % (Manual) 13.0 L Nucleated RBC % Seg Neutrophils # Man 9.6 H Lymphocytes # (Manual) PT ABG pH POC ABG pCO2 POC ABG pO2 ABG pO2 ABG O2 Saturation ABG Base Excess ABG Hemoglobin ABG Oxyhemoglobin ABG Potassium ABG Chloride ABG Glucose Oxyhemoglobin Carboxyhemoglobin Sodium Potassium Chloride Carbon Dioxide BUN Creatinine Glucose POC Glucose 143 H 206 H Hemoglobin A1c Lactic Acid Calcium Phosphorus Magnesium Transferrin AST ALT Alkaline Phosphatase Total Creatine Kinase CK-MB (CK-2) Serum Total Protein Total Protein Albumin Wdzlg-8-Ecbncjqqr Snizm-0-Gcpngtzcz Gamma Globulins PEP Interpretation HDL Cholesterol TSH Arterial Blood Glucose Arterial Blood Ionized Calcium Urine WBC (Auto) Urine Creatinine Urine Total Protein Crossmatch 04/22/21 04/22/21 04/22/21 06:09 07:18 08:59 WBC RBC Hgb Hct MCH RDW Plt Count Seg Neuts % (Manual) Lymphocytes % (Manual) Nucleated RBC % Seg Neutrophils # Man Lymphocytes # (Manual) PT ABG pH POC ABG pCO2 POC ABG pO2 ABG pO2 ABG O2 Saturation ABG Base Excess ABG Hemoglobin ABG Oxyhemoglobin ABG Potassium ABG Chloride ABG Glucose Oxyhemoglobin Carboxyhemoglobin Sodium Potassium Chloride Carbon Dioxide BUN Creatinine Glucose POC Glucose 163 H 158 H Hemoglobin A1c Lactic Acid Calcium Phosphorus Magnesium Transferrin AST ALT Alkaline Phosphatase Total Creatine Kinase 3105 H CK-MB (CK-2) Serum Total Protein Total Protein Albumin Tirbs-8-Exmxwcybt Vvwxw-6-Hrpxrxcru Gamma Globulins PEP Interpretation HDL Cholesterol TSH Arterial Blood Glucose Arterial Blood Ionized Calcium Urine WBC (Auto) Urine Creatinine Urine Total Protein Crossmatch 04/22/21 04/22/21 04/22/21 08:59 08:59 09:44 WBC RBC Hgb Hct MCH RDW Plt Count Seg Neuts % (Manual) Lymphocytes % (Manual) Nucleated RBC % Seg Neutrophils # Man Lymphocytes # (Manual) PT ABG pH POC ABG pCO2 POC ABG pO2 ABG pO2 ABG O2 Saturation ABG Base Excess ABG Hemoglobin ABG Oxyhemoglobin ABG Potassium ABG Chloride ABG Glucose Oxyhemoglobin Carboxyhemoglobin Sodium 169 H* Potassium 3.5 L Chloride 134.5 H Carbon Dioxide 20 L BUN 95 H Creatinine 3.6 H Glucose 151 H POC Glucose Hemoglobin A1c Lactic Acid Calcium Phosphorus Magnesium 2.80 H Transferrin AST 121 H ALT 75 H Alkaline Phosphatase 137 H Total Creatine Kinase CK-MB (CK-2) Serum Total Protein 5.5 L Total Protein 6.0 L Albumin 2.8 L 2.1 L [place]ganu-0-Qluedqkmv 0.6 H Ysaif-6-Vbgwmvuju 1.0 H Gamma Globulins 0.6 L PEP Interpretation see below H HDL Cholesterol TSH Arterial Blood Glucose Arterial Blood Ionized Calcium Urine WBC (Auto) Urine Creatinine Urine Total Protein Crossmatch 04/22/21 04/22/21 04/22/21 10:24 12:20 13:19 WBC RBC Hgb Hct MCH RDW Plt Count Seg Neuts % (Manual) Lymphocytes % (Manual) Nucleated RBC % Seg Neutrophils # Man Lymphocytes # (Manual) PT ABG pH POC ABG pCO2 POC ABG pO2 ABG pO2 ABG O2 Saturation ABG Base Excess ABG Hemoglobin ABG Oxyhemoglobin ABG Potassium ABG Chloride ABG Glucose Oxyhemoglobin Carboxyhemoglobin Sodium Potassium Chloride Carbon Dioxide BUN Creatinine Glucose POC Glucose 107 H 131 H 147 H Hemoglobin A1c Lactic Acid Calcium Phosphorus Magnesium Transferrin AST ALT Alkaline Phosphatase Total Creatine Kinase CK-MB (CK-2) Serum Total Protein Total Protein Albumin Qqsvn-2-Kdwanurut Cvide-5-Fqjpwfsgw Gamma Globulins PEP Interpretation HDL Cholesterol TSH Arterial Blood Glucose Arterial Blood Ionized Calcium Urine WBC (Auto) Urine Creatinine Urine Total Protein Crossmatch 04/22/21 04/22/21 04/22/21 14:16 15:22 15:55 WBC RBC Hgb Hct MCH RDW Plt Count Seg Neuts % (Manual) Lymphocytes % (Manual) Nucleated RBC % Seg Neutrophils # Man Lymphocytes # (Manual) PT ABG pH POC ABG pCO2 POC ABG pO2 ABG pO2 ABG O2 Saturation ABG Base Excess ABG Hemoglobin ABG Oxyhemoglobin ABG Potassium ABG Chloride ABG Glucose Oxyhemoglobin Carboxyhemoglobin Sodium 169 H* Potassium Chloride 133.5 H Carbon Dioxide 19 L BUN 94 H Creatinine 3.8 H Glucose 150 H POC Glucose 154 H 136 H Hemoglobin A1c Lactic Acid Calcium Phosphorus Magnesium Transferrin AST ALT Alkaline Phosphatase Total Creatine Kinase CK-MB (CK-2) Serum Total Protein Total Protein Albumin Gwkjj-2-Kaavnuzbr Ylxzw-4-Lzhexrmdg Gamma Globulins PEP Interpretation HDL Cholesterol TSH Arterial Blood Glucose Arterial Blood Ionized Calcium Urine WBC (Auto) Urine Creatinine Urine Total Protein Crossmatch 04/22/21 04/22/2104/22/21 15:55 16:22 18:11 WBC RBC Hgb Hct MCH RDW Plt Count Seg Neuts % (Manual) Lymphocytes % (Manual) Nucleated RBC % Seg Neutrophils # Man Lymphocytes # (Manual) PT ABG pH POC ABG pCO2 POC ABG pO2 ABG pO2 ABG O2 Saturation ABG Base Excess ABG Hemoglobin ABG Oxyhemoglobin ABG Potassium ABG Chloride ABG Glucose Oxyhemoglobin Carboxyhemoglobin Sodium Potassium Chloride Carbon Dioxide BUN Creatinine Glucose POC Glucose 140 H Hemoglobin A1c 17.1 H Lactic Acid Calcium Phosphorus Magnesium Transferrin AST ALT Alkaline Phosphatase Total Creatine Kinase 2497 H CK-MB (CK-2) Serum Total Protein Total Protein Albumin Qnozm-6-Ohnzxdhfy Nottd-5-Jmtpinjnk Gamma Globulins PEP Interpretation HDL Cholesterol TSH Arterial Blood Glucose Arterial Blood Ionized Calcium Urine WBC (Auto) Urine Creatinine Urine Total Protein Crossmatch 04/22/21 04/22/21 04/23/21 18:26 23:19 00:27 WBC RBC Hgb Hct MCH RDW Plt Count Seg Neuts % (Manual) Lymphocytes % (Manual) Nucleated RBC % Seg Neutrophils # Man Lymphocytes # (Manual) PT ABG pH POC ABG pCO2 POC ABG pO2 ABG pO2 ABG O2 Saturation ABG Base Excess ABG Hemoglobin ABG Oxyhemoglobin ABG Potassium ABG Chloride ABG Glucose Oxyhemoglobin Carboxyhemoglobin Sodium 162 H* Potassium Chloride Carbon Dioxide BUN Creatinine Glucose POC Glucose 146 H 188 H Hemoglobin A1c Lactic Acid Calcium Phosphorus Magnesium Transferrin AST ALT Alkaline Phosphatase Total Creatine Kinase CK-MB (CK-2) Serum Total Protein Total Protein Albumin Edbzz-9-Hftmogxnf Yhagq-3-Cgrbrgdrl Gamma Globulins PEP Interpretation HDL Cholesterol TSH Arterial Blood Glucose Arterial Blood Ionized Calcium Urine WBC (Auto) Urine Creatinine Urine Total Protein Crossmatch 04/23/21 04/23/21 04/23/21 05:23 07:50 08:13 WBC RBC Hgb Hct MCH RDW Plt Count Seg Neuts % (Manual) Lymphocytes % (Manual) Nucleated RBC % Seg Neutrophils # Man Lymphocytes # (Manual) PT ABG pH POC ABG pCO2 POC ABG pO2 ABG pO2 ABG O2 Saturation ABG Base Excess ABG Hemoglobin ABG Oxyhemoglobin ABG Potassium ABG Chloride ABG Glucose Oxyhemoglobin Carboxyhemoglobin Sodium Potassium Chloride Carbon Dioxide BUN Creatinine Glucose POC Glucose 212 H 239 H Hemoglobin A1c Lactic Acid Calcium Phosphorus Magnesium Transferrin AST ALT Alkaline Phosphatase Total Creatine Kinase 1803 H CK-MB (CK-2) Serum Total Protein Total Protein Albumin Wwlrz-4-Qefdazoyv Ybmfm-7-Ekzmujgdb Gamma Globulins PEP Interpretation HDL Cholesterol TSH Arterial Blood Glucose Arterial Blood Ionized Calcium Urine WBC (Auto) Urine Creatinine Urine Total Protein Crossmatch 04/23/21 04/23/21 04/23/21 08:13 08:13 12:06 WBC 11.9 H RBC Hgb Hct MCH 26 L RDW 16.5 H Plt Count 72 L Seg Neuts % (Manual) 80.0 H Lymphocytes % (Manual) 5.0 L Nucleated RBC % Seg Neutrophils # Man 9.5 H Lymphocytes # (Manual) 0.6 L PT ABG pH POC ABG pCO2 POC ABG pO2 ABG pO2 ABG O2 Saturation ABG Base Excess ABG Hemoglobin ABG Oxyhemoglobin ABG Potassium ABG Chloride ABG Glucose Oxyhemoglobin Carboxyhemoglobin Sodium 164 H* Potassium Chloride 128.0 H Carbon Dioxide 21 L BUN 93 H Creatinine 3.8 H Glucose 293 H POC Glucose 311 H Hemoglobin A1c Lactic Acid Calcium Phosphorus Magnesium Transferrin AST 99 H ALT 70 H Alkaline Phosphatase 147 H Total Creatine Kinase CK-MB (CK-2) Serum Total Protein Total Protein 6.1 L Albumin 2.0 L Txbmk-3-Poyivzcdd Udsdj-1-Snvfsqxwx Gamma Globulins PEP Interpretation HDL Cholesterol TSH Arterial Blood Glucose Arterial Blood Ionized Calcium Urine WBC (Auto) Urine Creatinine Urine Total Protein Crossmatch 04/23/21 04/23/21 04/24/21 17:35 18:17 02:13 WBC RBC Hgb Hct MCH RDW Plt Count Seg Neuts % (Manual) Lymphocytes % (Manual) Nucleated RBC % Seg Neutrophils # Man Lymphocytes # (Manual) PT ABG pH POC ABG pCO2 POC ABG pO2 ABG pO2 ABG O2 Saturation ABG Base Excess ABG Hemoglobin ABG Oxyhemoglobin ABG Potassium ABG Chloride ABG Glucose Oxyhemoglobin Carboxyhemoglobin Sodium 160 H 160 H Potassium Chloride Carbon Dioxide BUN Creatinine Glucose POC Glucose 370 H Hemoglobin A1c Lactic Acid Calcium Phosphorus Magnesium Transferrin AST ALT Alkaline Phosphatase Total Creatine Kinase CK-MB (CK-2) Serum Total Protein Total Protein Albumin Mfrxt-8-Swgtmnqyd Ippgj-4-Pahvqtnqu Gamma Globulins PEP Interpretation HDL Cholesterol TSH Arterial Blood Glucose Arterial Blood Ionized Calcium Urine WBC (Auto) Urine Creatinine Urine Total Protein Crossmatch 04/24/21 04/24/21 04/24/21 06:00 06:00 07:46 WBC RBC Hgb Hct MCH 27 L RDW 17.0 H Plt Count 58 L Seg Neuts % (Manual) Lymphocytes % (Manual) 2.0 L Nucleated RBC % Seg Neutrophils # Man 8.9 H Lymphocytes # (Manual) 0.2 L PT ABG pH POC ABG pCO2 POC ABG pO2 ABG pO2 ABG O2 Saturation ABG Base Excess ABG Hemoglobin ABG Oxyhemoglobin ABG Potassium ABG Chloride ABG Glucose Oxyhemoglobin Carboxyhemoglobin Sodium Potassium Chloride Carbon Dioxide BUN Creatinine Glucose POC Glucose 395 H Hemoglobin A1c Lactic Acid Calcium Phosphorus Magnesium 2.90 H Transferrin AST ALT Alkaline Phosphatase Total Creatine Kinase CK-MB (CK-2) Serum Total Protein Total Protein Albumin Jxfdo-5-Fqjcvttuk Lchbl-1-Vgpldivcl Gamma Globulins PEP Interpretation HDL Cholesterol TSH Arterial Blood Glucose Arterial Blood Ionized Calcium Urine WBC (Auto) Urine Creatinine Urine Total Protein Crossmatch 04/24/21 04/24/21 04/24/21 08:15 11:34 13:11 WBC RBC Hgb Hct MCH RDW Plt Count Seg Neuts % (Manual) Lymphocytes % (Manual) Nucleated RBC % Seg Neutrophils # Man Lymphocytes # (Manual) PT ABG pH POC ABG pCO2 POC ABG pO2 ABG pO2 ABG O2 Saturation ABG Base Excess ABG Hemoglobin ABG Oxyhemoglobin ABG Potassium ABG Chloride ABG Glucose Oxyhemoglobin Carboxyhemoglobin Sodium 159 H Potassium Chloride 125.6 H Carbon Dioxide 19 L BUN 94 H Creatinine 3.7 H Glucose 514 H* POC Glucose 422 H 384 H Hemoglobin A1c Lactic Acid Calcium Phosphorus Magnesium Transferrin AST ALT 61 H Alkaline Phosphatase 155 H Total Creatine Kinase CK-MB (CK-2) Serum Total Protein Total Protein 6.1 L Albumin 1.5 L Hfixy-1-Wmtidgsxy Ewtej-0-Vbehnfcgh Gamma Globulins PEP Interpretation HDL Cholesterol TSH Arterial Blood Glucose Arterial Blood Ionized Calcium Urine WBC (Auto) Urine Creatinine Urine Total Protein Crossmatch 04/24/21 04/24/21 04/24/21 14:01 15:03 17:29 WBC RBC Hgb Hct MCH RDW Plt Count Seg Neuts % (Manual) Lymphocytes % (Manual) Nucleated RBC % Seg Neutrophils # Man Lymphocytes # (Manual) PT ABG pH POC ABG pCO2 POC ABG pO2 ABG pO2 ABG O2 Saturation ABG Base Excess ABG Hemoglobin ABG Oxyhemoglobin ABG Potassium ABG Chloride ABG Glucose Oxyhemoglobin Carboxyhemoglobin Sodium Potassium Chloride Carbon Dioxide BUN Creatinine Glucose POC Glucose 423 H 418 H Hemoglobin A1c Lactic Acid Calcium Phosphorus Magnesium Transferrin 112 L AST ALT Alkaline Phosphatase Total Creatine Kinase CK-MB (CK-2) Serum Total Protein Total Protein Albumin Aulic-0-Zwianaguo Qrsva-8-Aijloohoj Gamma Globulins PEP Interpretation HDL Cholesterol TSH Arterial Blood Glucose Arterial Blood Ionized Calcium Urine WBC (Auto) Urine Creatinine Urine Total Protein Crossmatch 04/24/21 04/24/21 04/24/21 18:28 19:41 22:33 WBC RBC Hgb Hct MCH RDW Plt Count Seg Neuts % (Manual) Lymphocytes % (Manual) Nucleated RBC % Seg Neutrophils # Man Lymphocytes # (Manual) PT ABG pH POC ABG pCO2 POC ABG pO2 ABG pO2 ABG O2 Saturation ABG Base Excess ABG Hemoglobin ABG Oxyhemoglobin ABG Potassium ABG Chloride ABG Glucose Oxyhemoglobin Carboxyhemoglobin Sodium Potassium Chloride Carbon Dioxide BUN Creatinine Glucose POC Glucose 335 H 321 H 349 H Hemoglobin A1c Lactic Acid Calcium Phosphorus Magnesium Transferrin AST ALT Alkaline Phosphatase Total Creatine Kinase CK-MB (CK-2) Serum Total Protein Total Protein Albumin Fcryl-0-Ajdqybwbw Nsfmi-7-Euynqcobn Gamma Globulins PEP Interpretation HDL Cholesterol TSH Arterial Blood Glucose Arterial Blood Ionized Calcium Urine WBC (Auto) Urine Creatinine Urine Total Protein Crossmatch 04/25/21 04/25/21 04/25/21 01:28 02:28 03:25 WBC RBC Hgb Hct MCH RDW Plt Count Seg Neuts % (Manual) Lymphocytes % (Manual) Nucleated RBC % Seg Neutrophils # Man Lymphocytes # (Manual) PT ABG pH POC ABG pCO2 POC ABG pO2 ABG pO2 ABG O2 Saturation ABG Base Excess ABG Hemoglobin ABG Oxyhemoglobin ABG Potassium ABG Chloride ABG Glucose Oxyhemoglobin Carboxyhemoglobin Sodium Potassium Chloride Carbon Dioxide BUN Creatinine Glucose POC Glucose 283 H 247 H 196 H Hemoglobin A1c Lactic Acid Calcium Phosphorus Magnesium Transferrin AST ALT Alkaline Phosphatase Total Creatine Kinase CK-MB (CK-2) Serum Total Protein Total Protein Albumin Ihxac-8-Dmspfrmcc Vdtri-5-Uualimhss Gamma Globulins PEP Interpretation HDL Cholesterol TSH Arterial Blood Glucose Arterial Blood Ionized Calcium Urine WBC (Auto) Urine Creatinine Urine Total Protein Crossmatch 04/25/21 04/25/21 04/25/21 04:22 05:40 05:45 WBC RBC Hgb Hct MCH 27 L RDW 17.0 H Plt Count 64 L Seg Neuts % (Manual) 84.0 H Lymphocytes % (Manual) 6.0 L Nucleated RBC % 1.0 H Seg Neutrophils # Man Lymphocytes # (Manual) 0.4 L PT ABG pH POC ABG pCO2 POC ABG pO2 ABG pO2 ABG O2 Saturation ABG Base Excess ABG Hemoglobin ABG Oxyhemoglobin ABG Potassium ABG Chloride ABG Glucose Oxyhemoglobin Carboxyhemoglobin Sodium Potassium Chloride Carbon Dioxide BUN Creatinine Glucose POC Glucose 207 H 204 H Hemoglobin A1c Lactic Acid Calcium Phosphorus Magnesium Transferrin AST ALT Alkaline Phosphatase Total Creatine Kinase CK-MB (CK-2) Serum Total Protein Total Protein Albumin Kuxra-1-Sofptohyw Lenzu-6-Fbxfepygv Gamma Globulins PEP Interpretation HDL Cholesterol TSH Arterial Blood Glucose Arterial Blood Ionized Calcium Urine WBC (Auto) Urine Creatinine Urine Total Protein Crossmatch 04/25/21 04/25/21 04/25/21 06:43 07:37 08:11 WBC RBC Hgb Hct MCH RDW Plt Count Seg Neuts % (Manual) Lymphocytes % (Manual) Nucleated RBC % Seg Neutrophils # Man Lymphocytes # (Manual) PT ABG pH POC ABG pCO2 POC ABG pO2 ABG pO2 ABG O2 Saturation ABG Base Excess ABG Hemoglobin ABG Oxyhemoglobin ABG Potassium ABG Chloride ABG Glucose Oxyhemoglobin Carboxyhemoglobin Sodium 148 H D Potassium Chloride 115.7 H Carbon Dioxide 21 L BUN 83 H Creatinine 3.6 H Glucose 247 H POC Glucose 238 H 201 H Hemoglobin A1c Lactic Acid Calcium Phosphorus Magnesium Transferrin AST 63 H ALT 62 H Alkaline Phosphatase 143 H Total Creatine Kinase CK-MB (CK-2) Serum Total Protein Total Protein 5.4 L Albumin 1.4 L Awsgp-5-Dnrevotup Uvemw-0-Hxeyahxvf Gamma Globulins PEP Interpretation HDL Cholesterol TSH Arterial Blood Glucose Arterial Blood Ionized Calcium Urine WBC (Auto) Urine Creatinine Urine Total Protein Crossmatch 04/25/21 04/25/21 04/25/21 08:11 08:41 09:22 WBC RBC Hgb Hct MCH RDW Plt Count Seg Neuts % (Manual) Lymphocytes % (Manual) Nucleated RBC % Seg Neutrophils # Man Lymphocytes # (Manual) PT ABG pH POC ABG pCO2 POC ABG pO2 ABG pO2 ABG O2 Saturation ABG Base Excess ABG Hemoglobin ABG Oxyhemoglobin ABG Potassium ABG Chloride ABG Glucose Oxyhemoglobin Carboxyhemoglobin Sodium Potassium Chloride Carbon Dioxide BUN Creatinine Glucose POC Glucose 220 H 228 H Hemoglobin A1c Lactic Acid Calcium Phosphorus Magnesium 2.50 H Transferrin AST ALT Alkaline Phosphatase Total Creatine Kinase CK-MB (CK-2) Serum Total Protein Total Protein Albumin Tukdh-7-Yardtkesv Ptuuf-5-Blskizoxq Gamma Globulins PEP Interpretation HDL Cholesterol TSH Arterial Blood Glucose Arterial Blood Ionized Calcium Urine WBC (Auto) Urine Creatinine Urine Total Protein Crossmatch 04/25/21 04/25/21 04/25/21 10:31 11:44 12:23 WBC RBC Hgb Hct MCH RDW Plt Count Seg Neuts % (Manual) Lymphocytes % (Manual) Nucleated RBC % Seg Neutrophils # Man Lymphocytes # (Manual) PT ABG pH POC ABG pCO2 POC ABG pO2 ABG pO2 ABG O2 Saturation ABG Base Excess ABG Hemoglobin ABG Oxyhemoglobin ABG Potassium ABG Chloride ABG Glucose Oxyhemoglobin Carboxyhemoglobin Sodium Potassium Chloride Carbon Dioxide BUN Creatinine Glucose POC Glucose 215 H 191 H 229 H Hemoglobin A1c Lactic Acid Calcium Phosphorus Magnesium Transferrin AST ALT Alkaline Phosphatase Total Creatine Kinase CK-MB (CK-2) Serum Total Protein Total Protein Albumin Rxegh-7-Hemvdznzi Gvubo-8-Oqmqjdsum Gamma Globulins PEP Interpretation HDL Cholesterol TSH Arterial Blood Glucose Arterial Blood Ionized Calcium Urine WBC (Auto) Urine Creatinine Urine Total Protein Crossmatch 04/25/21 04/25/21 04/25/21 13:48 14:11 18:01 WBC RBC Hgb Hct MCH RDW Plt Count Seg Neuts % (Manual) Lymphocytes % (Manual) Nucleated RBC % Seg Neutrophils # Man Lymphocytes # (Manual) PT ABG pH POC ABG pCO2 POC ABG pO2 ABG pO2 ABG O2 Saturation ABG Base Excess ABG Hemoglobin ABG Oxyhemoglobin ABG Potassium ABG Chloride ABG Glucose Oxyhemoglobin Carboxyhemoglobin Sodium Potassium Chloride Carbon Dioxide BUN Creatinine Glucose POC Glucose 177 H 161 H 264 H Hemoglobin A1c Lactic Acid Calcium Phosphorus Magnesium Transferrin AST ALT Alkaline Phosphatase Total Creatine Kinase CK-MB (CK-2) Serum Total Protein Total Protein Albumin Oxtwd-6-Tufwrdoaf Hkzwi-7-Rdeflxudt Gamma Globulins PEP Interpretation HDL Cholesterol TSH Arterial Blood Glucose Arterial Blood Ionized Calcium Urine WBC (Auto) Urine Creatinine Urine Total Protein Crossmatch 04/25/21 04/26/21 04/26/21 21:31 01:19 06:31 WBC RBC Hgb Hct MCH RDW Plt Count Seg Neuts % (Manual) Lymphocytes % (Manual) Nucleated RBC % Seg Neutrophils # Man Lymphocytes # (Manual) PT ABG pH POC ABG pCO2 POC ABG pO2 ABG pO2 ABG O2 Saturation ABG Base Excess ABG Hemoglobin ABG Oxyhemoglobin ABG Potassium ABG Chloride ABG Glucose Oxyhemoglobin Carboxyhemoglobin Sodium Potassium Chloride Carbon Dioxide BUN Creatinine Glucose POC Glucose 371 H 356 H 428 H Hemoglobin A1c Lactic Acid Calcium Phosphorus Magnesium Transferrin AST ALT Alkaline Phosphatase Total Creatine Kinase CK-MB (CK-2) Serum Total Protein Total Protein Albumin Ixjoh-0-Ejgecbamt Mpsub-2-Romyaqmte Gamma Globulins PEP Interpretation HDL Cholesterol TSH Arterial Blood Glucose Arterial Blood Ionized Calcium Urine WBC (Auto) Urine Creatinine Urine Total Protein Crossmatch 04/26/21 04/26/21 04/26/21 09:13 09:33 09:33 WBC RBC Hgb Hct MCH 27 L RDW 16.9 H Plt Count 58 L Seg Neuts % (Manual) 77.0 H Lymphocytes % (Manual) 4.0 L Nucleated RBC % 2.0 H Seg Neutrophils # Man Lymphocytes # (Manual) 0.3 L PT ABG pH POC ABG pCO2 POC ABG pO2 ABG pO2 ABG O2 Saturation ABG Base Excess ABG Hemoglobin ABG Oxyhemoglobin ABG Potassium ABG Chloride ABG Glucose Oxyhemoglobin Carboxyhemoglobin Sodium Potassium Chloride Carbon Dioxide BUN Creatinine Glucose POC Glucose 454 H Hemoglobin A1c Lactic Acid Calcium Phosphorus 5.60 H D Magnesium Transferrin AST ALT Alkaline Phosphatase Total Creatine Kinase CK-MB (CK-2) Serum Total Protein Total Protein Albumin Cxhud-1-Dvnsdofdv Ceiii-3-Luujsejla Gamma Globulins PEP Interpretation HDL Cholesterol TSH Arterial Blood Glucose Arterial Blood Ionized Calcium Urine WBC (Auto) Urine Creatinine Urine Total Protein Crossmatch 04/26/21 04/26/21 04/26/21 09:33 11:00 12:36 WBC RBC Hgb Hct MCH RDW Plt Count Seg Neuts % (Manual) Lymphocytes % (Manual) Nucleated RBC % Seg Neutrophils # Man Lymphocytes # (Manual) PT ABG pH 7.281 L POC ABG pCO2 POC ABG pO2 66.4 L ABG pO2 ABG O2 Saturation ABG Base Excess ABG Hemoglobin 10.9 L ABG Oxyhemoglobin 91 L ABG Potassium ABG Chloride ABG Glucose 521 H Oxyhemoglobin Carboxyhemoglobin Sodium Potassium Chloride Carbon Dioxide 19 L BUN 98 H Creatinine 3.8 H Glucose 530 H* POC Glucose 414 H Hemoglobin A1c Lactic Acid Calcium 8.1 L Phosphorus Magnesium Transferrin AST 60 H ALT 72 H Alkaline Phosphatase 168 H Total Creatine Kinase CK-MB (CK-2) Serum Total Protein Total Protein 4.6 L Albumin 1.7 L Elsmj-9-Tdysygtuf Hmjev-0-Kkofxfjnn Gamma Globulins PEP Interpretation HDL Cholesterol TSH Arterial Blood Glucose 521 H Arterial Blood Ionized Calcium Urine WBC (Auto) Urine Creatinine Urine Total Protein Crossmatch 04/26/21 04/26/21 04/26/21 15:39 16:18 21:14 WBC RBC Hgb Hct MCH RDW Plt Count Seg Neuts % (Manual) Lymphocytes % (Manual) Nucleated RBC % Seg Neutrophils # Man Lymphocytes # (Manual) PT ABG pH 7.275 L POC ABG pCO2 POC ABG pO2 63.4 L ABG pO2 ABG O2 Saturation ABG Base Excess ABG Hemoglobin 8.4 L ABG Oxyhemoglobin 89.5 L ABG Potassium ABG Chloride 108.0 H ABG Glucose 404 H Oxyhemoglobin Carboxyhemoglobin Sodium Potassium Chloride Carbon Dioxide BUN Creatinine Glucose POC Glucose 324 H 242 H Hemoglobin A1c Lactic Acid Calcium Phosphorus Magnesium Transferrin AST ALT Alkaline Phosphatase Total Creatine Kinase CK-MB (CK-2) Serum Total Protein Total Protein Albumin Nmthk-1-Mjtuctvjm Uxkek-0-Jspxcpvue Gamma Globulins PEP Interpretation HDL Cholesterol TSH Arterial Blood Glucose 404 H Arterial Blood Ionized Calcium Urine WBC (Auto) Urine Creatinine Urine Total Protein Crossmatch 04/27/21 04/27/21 04/27/21 00:07 05:47 06:23 WBC RBC Hgb Hct MCH RDW Plt Count Seg Neuts % (Manual) Lymphocytes % (Manual) Nucleated RBC % Seg Neutrophils # Man Lymphocytes # (Manual) PT ABG pH POC ABG pCO2 POC ABG pO2 ABG pO2 ABG O2 Saturation ABG Base Excess ABG Hemoglobin ABG Oxyhemoglobin ABG Potassium ABG Chloride ABG Glucose Oxyhemoglobin Carboxyhemoglobin Sodium Potassium Chloride Carbon Dioxide BUN Creatinine Glucose POC Glucose 282 H 214 H 187 H Hemoglobin A1c Lactic Acid Calcium Phosphorus Magnesium Transferrin AST ALT Alkaline Phosphatase Total Creatine Kinase CK-MB (CK-2) Serum Total Protein Total Protein Albumin Ooolj-0-Vnlnbclrx Kfqbh-8-Fnfysgtca Gamma Globulins PEP Interpretation HDL Cholesterol TSH Arterial Blood Glucose Arterial Blood Ionized Calcium Urine WBC (Auto) Urine Creatinine Urine Total Protein Crossmatch 04/27/21 04/27/21 04/27/21 07:43 08:30 11:54 WBC RBC Hgb Hct MCH RDW Plt Count Seg Neuts % (Manual) Lymphocytes % (Manual) Nucleated RBC % Seg Neutrophils # Man Lymphocytes # (Manual) PT ABG pH 7.309 L POC ABG pCO2 POC ABG pO2 70.6 L ABG pO2 ABG O2 Saturation ABG Base Excess ABG Hemoglobin 9.16 L ABG Oxyhemoglobin 92.4 L ABG Potassium ABG Chloride ABG Glucose Oxyhemoglobin Carboxyhemoglobin Sodium Potassium Chloride 110.1 H Carbon Dioxide 15 L BUN 109 H Creatinine 4.3 H Glucose 218 H POC Glucose 147 H Hemoglobin A1c Lactic Acid Calcium Phosphorus Magnesium Transferrin AST 53 H ALT Alkaline Phosphatase 148 H Total Creatine Kinase 1000 H CK-MB (CK-2) Serum Total Protein Total Protein 5.2 L Albumin 1.2 L Wsgom-5-Qairpjssx Waasr-5-Ddsgyufyu Gamma Globulins PEP Interpretation HDL Cholesterol TSH Arterial Blood Glucose Arterial Blood Ionized Calcium Urine WBC (Auto) Urine Creatinine Urine Total Protein Crossmatch 04/27/21 04/27/21 04/28/21 21:08 23:28 04:00 WBC 12.6 H RBC 3.59 L Hgb 9.4 L Hct MCH 26 L RDW 16.6 H Plt Count 111 L Seg Neuts % (Manual) Lymphocytes % (Manual) 1.0 L Nucleated RBC % 4.0 H Seg Neutrophils # Man 11.6 H Lymphocytes # (Manual) 0.1 L PT ABG pH POC ABG pCO2 POC ABG pO2 ABG pO2 ABG O2 Saturation ABG Base Excess ABG Hemoglobin ABG Oxyhemoglobin ABG Potassium ABG Chloride ABG Glucose Oxyhemoglobin Carboxyhemoglobin Sodium Potassium Chloride Carbon Dioxide BUN Creatinine Glucose POC Glucose 136 H 201 H Hemoglobin A1c Lactic Acid Calcium Phosphorus Magnesium Transferrin AST ALT Alkaline Phosphatase Total Creatine Kinase CK-MB (CK-2) Serum Total Protein Total Protein Albumin Qvyss-3-Fhloimtcl Fcjng-3-Zrkeuejxf Gamma Globulins PEP Interpretation HDL Cholesterol TSH Arterial Blood Glucose Arterial Blood Ionized Calcium Urine WBC (Auto) Urine Creatinine Urine Total Protein Crossmatch 04/28/21 04/28/21 04/28/21 04:00 05:00 05:08 WBC RBC Hgb Hct MCH RDW Plt Count Seg Neuts % (Manual) Lymphocytes % (Manual) Nucleated RBC % Seg Neutrophils # Man Lymphocytes # (Manual) PT 15.3 H ABG pH POC ABG pCO2 POC ABG pO2 ABG pO2 ABG O2 Saturation ABG Base Excess ABG Hemoglobin ABG Oxyhemoglobin ABG Potassium ABG Chloride ABG Glucose Oxyhemoglobin Carboxyhemoglobin Sodium 147 H Potassium 3.5 L D Chloride Carbon Dioxide BUN 79 H Creatinine 3.8 H Glucose 194 H POC Glucose 183 H Hemoglobin A1c Lactic Acid Calcium 8.1 L Phosphorus Magnesium Transferrin AST ALT Alkaline Phosphatase Total Creatine Kinase CK-MB (CK-2) Serum Total Protein Total Protein Albumin Ktkbd-7-Bqbbzbheb Yqohz-0-Afvxdxaui Gamma Globulins PEP Interpretation HDL Cholesterol TSH Arterial Blood Glucose Arterial Blood Ionized Calcium Urine WBC (Auto) Urine Creatinine Urine Total Protein Crossmatch 04/28/21 04/28/21 04/28/21 05:18 11:04 17:16 WBC RBC Hgb Hct MCH RDW Plt Count Seg Neuts % (Manual) Lymphocytes % (Manual) Nucleated RBC % Seg Neutrophils # Man Lymphocytes # (Manual) PT ABG pH POC ABG pCO2 POC ABG pO2 66.5 L ABG pO2 ABG O2 Saturation ABG Base Excess ABG Hemoglobin 9.7 L ABG Oxyhemoglobin 92.5 L ABG Potassium 3.2 L ABG Chloride ABG Glucose 200 H Oxyhemoglobin Carboxyhemoglobin Sodium Potassium Chloride Carbon Dioxide BUN Creatinine Glucose POC Glucose 174 H 135 H Hemoglobin A1c Lactic Acid Calcium Phosphorus Magnesium Transferrin AST ALT Alkaline Phosphatase Total Creatine Kinase CK-MB (CK-2) Serum Total Protein Total Protein Albumin Ezuwc-1-Nqpkraprr Ezmxh-5-Iagyjnqnt Gamma Globulins PEP Interpretation HDL Cholesterol TSH Arterial Blood Glucose 200 H Arterial Blood Ionized Calcium 4.5 L Urine WBC (Auto) Urine Creatinine Urine Total Protein Crossmatch 04/28/21 04/28/21 04/29/21 21:14 23:41 01:16 WBC RBC Hgb Hct MCH RDW Plt Count Seg Neuts % (Manual) Lymphocytes % (Manual) Nucleated RBC % Seg Neutrophils # Man Lymphocytes # (Manual) PT ABG pH POC ABG pCO2 POC ABG pO2 ABG pO2 ABG O2 Saturation ABG Base Excess ABG Hemoglobin ABG Oxyhemoglobin ABG Potassium ABG Chloride ABG Glucose Oxyhemoglobin Carboxyhemoglobin Sodium Potassium Chloride Carbon Dioxide BUN Creatinine Glucose POC Glucose 134 H 171 H 236 H Hemoglobin A1c Lactic Acid Calcium Phosphorus Magnesium Transferrin AST ALT Alkaline Phosphatase Total Creatine Kinase CK-MB (CK-2) Serum Total Protein Total Protein Albumin Jmkop-4-Ujohdvtdm Aqkql-4-Jmgcsuwdl Gamma Globulins PEP Interpretation HDL Cholesterol TSH Arterial Blood Glucose Arterial Blood Ionized Calcium Urine WBC (Auto) Urine Creatinine Urine Total Protein Crossmatch 04/29/21 04/29/21 04/29/21 04:00 04:00 11:35 WBC 13.3 H RBC 3.12 L Hgb 8.3 L Hct 26.2 L MCH 27 L RDW 16.3 H Plt Count 132 L Seg Neuts % (Manual) Lymphocytes % (Manual) Nucleated RBC % Seg Neutrophils # Man Lymphocytes # (Manual) PT ABG pH POC ABG pCO2 POC ABG pO2 ABG pO2 ABG O2 Saturation ABG Base Excess ABG Hemoglobin ABG Oxyhemoglobin ABG Potassium ABG Chloride ABG Glucose Oxyhemoglobin Carboxyhemoglobin Sodium Potassium Chloride Carbon Dioxide BUN 63 H Creatinine 3.4 H Glucose 249 H POC Glucose 320 H Hemoglobin A1c Lactic Acid Calcium 8.2 L Phosphorus Magnesium Transferrin AST 61 H ALT 71 H Alkaline Phosphatase 170 H Total Creatine Kinase CK-MB (CK-2) Serum Total Protein Total Protein 5.1 L Albumin 1.6 L Yhlah-7-Zefosibmo Werks-0-Wxvfszutw Gamma Globulins PEP Interpretation HDL Cholesterol TSH Arterial Blood Glucose Arterial Blood Ionized Calcium Urine WBC (Auto) Urine Creatinine Urine Total Protein Crossmatch 04/29/21 04/29/21 04/29/21 13:30 16:01 21:58 WBC RBC Hgb Hct MCH RDW Plt Count Seg Neuts % (Manual) Lymphocytes % (Manual) Nucleated RBC % Seg Neutrophils # Man Lymphocytes # (Manual) PT ABG pH POC ABG pCO2 POC ABG pO2 ABG pO2 ABG O2 Saturation ABG Base Excess ABG Hemoglobin ABG Oxyhemoglobin ABG Potassium ABG Chloride ABG Glucose Oxyhemoglobin Carboxyhemoglobin Sodium Potassium Chloride Carbon Dioxide BUN Creatinine Glucose POC Glucose 297 H 260 H Hemoglobin A1c Lactic Acid Calcium Phosphorus Magnesium Transferrin AST ALT Alkaline Phosphatase Total Creatine Kinase CK-MB (CK-2) Serum Total Protein Total Protein Albumin Eabvw-8-Htepwrthr Kdmfh-8-Jtkirncnf Gamma Globulins PEP Interpretation HDL Cholesterol TSH Arterial Blood Glucose Arterial Blood Ionized Calcium Urine WBC (Auto) > 182.0 H Urine Creatinine Urine Total Protein Crossmatch 04/29/21 04/30/21 04/30/21 23:35 04:00 04:00 WBC 11.4 H RBC 3.27 L Hgb 8.7 L Hct 27.5 L MCH 27 L RDW 16.6 H Plt Count Seg Neuts % (Manual) Lymphocytes % (Manual) Nucleated RBC % Seg Neutrophils # Man Lymphocytes # (Manual) PT ABG pH POC ABG pCO2 POC ABG pO2 ABG pO2 ABG O2 Saturation ABG Base Excess ABG Hemoglobin ABG Oxyhemoglobin ABG Potassium ABG Chloride ABG Glucose Oxyhemoglobin Carboxyhemoglobin Sodium Potassium 3.1 L Chloride Carbon Dioxide BUN 79 H Creatinine 3.9 H Glucose 275 H POC Glucose 254 H Hemoglobin A1c Lactic Acid Calcium Phosphorus 5.60 H D Magnesium Transferrin AST ALT Alkaline Phosphatase Total Creatine Kinase CK-MB (CK-2) Serum Total Protein Total Protein Albumin Zwnfc-6-Bjxdcbvgp Otfjm-4-Hcctllfjz Gamma Globulins PEP Interpretation HDL Cholesterol TSH Arterial Blood Glucose Arterial Blood Ionized Calcium Urine WBC (Auto) Urine Creatinine Urine Total Protein Crossmatch 04/30/21 04/30/21 04/30/21 05:17 05:31 12:31 WBC RBC Hgb Hct MCH RDW Plt Count Seg Neuts % (Manual) Lymphocytes % (Manual) Nucleated RBC % Seg Neutrophils # Man Lymphocytes # (Manual) PT ABG pH 7.452 H POC ABG pCO2 30.5 L POC ABG pO2 54.5 L ABG pO2 ABG O2 Saturation ABG Base Excess ABG Hemoglobin 10.1 L ABG Oxyhemoglobin 87.4 L ABG Potassium 2.9 L ABG Chloride ABG Glucose 305 H Oxyhemoglobin Carboxyhemoglobin Sodium Potassium Chloride Carbon Dioxide BUN Creatinine Glucose POC Glucose 267 H 259 H Hemoglobin A1c Lactic Acid Calcium Phosphorus Magnesium Transferrin AST ALT Alkaline Phosphatase Total Creatine Kinase CK-MB (CK-2) Serum Total Protein Total Protein Albumin Wxfac-6-Tptawydux Exilx-9-Frmgdldpy Gamma Globulins PEP Interpretation HDL Cholesterol TSH Arterial Blood Glucose 305 H Arterial Blood Ionized Calcium Urine WBC (Auto) Urine Creatinine Urine Total Protein Crossmatch 04/30/21 04/30/21 05/01/21 17:50 22:24 00:09 WBC RBC Hgb Hct MCH RDW Plt Count Seg Neuts % (Manual) Lymphocytes % (Manual) Nucleated RBC % Seg Neutrophils # Man Lymphocytes # (Manual) PT ABG pH POC ABG pCO2 POC ABG pO2 ABG pO2 ABG O2 Saturation ABG Base Excess ABG Hemoglobin ABG Oxyhemoglobin ABG Potassium ABG Chloride ABG Glucose Oxyhemoglobin Carboxyhemoglobin Sodium Potassium Chloride Carbon Dioxide BUN Creatinine Glucose POC Glucose 161 H 146 H 149 H Hemoglobin A1c Lactic Acid Calcium Phosphorus Magnesium Transferrin AST ALT Alkaline Phosphatase Total Creatine Kinase CK-MB (CK-2) Serum Total Protein Total Protein Albumin Tlapf-7-Pmlbtnzwp Dwdcz-4-Bmrwzkeqc Gamma Globulins PEP Interpretation HDL Cholesterol TSH Arterial Blood Glucose Arterial Blood Ionized Calcium Urine WBC (Auto) Urine Creatinine Urine Total Protein Crossmatch 05/01/21 05/01/21 05/01/21 03:30 04:00 04:00 WBC 12.0 H RBC 3.08 L Hgb 8.1 L Hct 25.6 L MCH 26 L RDW 16.3 H Plt Count Seg Neuts % (Manual) Lymphocytes % (Manual) Nucleated RBC % Seg Neutrophils # Man Lymphocytes # (Manual) PT ABG pH 7.493 H POC ABG pCO2 POC ABG pO2 ABG pO2 ABG O2 Saturation ABG Base Excess ABG Hemoglobin 9.3 L ABG Oxyhemoglobin ABG Potassium ABG Chloride ABG Glucose 167 H Oxyhemoglobin Carboxyhemoglobin 0.4 L Sodium Potassium 3.5 L Chloride Carbon Dioxide BUN 62 H Creatinine 3.3 H Glucose 179 H POC Glucose Hemoglobin A1c Lactic Acid Calcium 8.3 L Phosphorus Magnesium Transferrin AST ALT Alkaline Phosphatase Total Creatine Kinase CK-MB (CK-2) Serum Total Protein Total Protein Albumin Jkpsd-4-Hrnsrhjae Naxmr-6-Jcpehnxrp Gamma Globulins PEP Interpretation HDL Cholesterol TSH Arterial Blood Glucose 167 H Arterial Blood Ionized Calcium Urine WBC (Auto) Urine Creatinine Urine Total Protein Crossmatch 05/01/21 05/01/21 05/01/21 05:48 11:49 16:24 WBC RBC Hgb Hct MCH RDW Plt Count Seg Neuts % (Manual) Lymphocytes % (Manual) Nucleated RBC % Seg Neutrophils # Man Lymphocytes # (Manual) PT ABG pH POC ABG pCO2 POC ABG pO2 ABG pO2 ABG O2 Saturation ABG Base Excess ABG Hemoglobin ABG Oxyhemoglobin ABG Potassium ABG Chloride ABG Glucose Oxyhemoglobin Carboxyhemoglobin Sodium Potassium Chloride Carbon Dioxide BUN Creatinine Glucose POC Glucose 197 H 167 H 157 H Hemoglobin A1c Lactic Acid Calcium Phosphorus Magnesium Transferrin AST ALT Alkaline Phosphatase Total Creatine Kinase CK-MB (CK-2) Serum Total Protein Total Protein Albumin Fuign-2-Vxgwaulys Qqfgc-0-Phuxciggi Gamma Globulins PEP Interpretation HDL Cholesterol TSH Arterial Blood Glucose Arterial Blood Ionized Calcium Urine WBC (Auto) Urine Creatinine Urine Total Protein Crossmatch 05/01/21 05/02/21 05/02/21 23:25 04:00 04:00 WBC 14.2 H RBC 2.61 L Hgb 6.9 L Hct 22.1 L MCH 27 L RDW 16.1 H Plt Count Seg Neuts % (Manual) Lymphocytes % (Manual) Nucleated RBC % Seg Neutrophils # Man Lymphocytes # (Manual) PT ABG pH POC ABG pCO2 POC ABG pO2 ABG pO2 ABG O2 Saturation ABG Base Excess ABG Hemoglobin ABG Oxyhemoglobin ABG Potassium ABG Chloride ABG Glucose Oxyhemoglobin Carboxyhemoglobin Sodium Potassium Chloride Carbon Dioxide BUN 49 H Creatinine 2.8 H Glucose 117 H POC Glucose 147 H Hemoglobin A1c Lactic Acid Calcium Phosphorus Magnesium Transferrin AST ALT Alkaline Phosphatase Total Creatine Kinase CK-MB (CK-2) Serum Total Protein Total Protein Albumin Mpmug-0-Iwopnygbw Nnyln-8-Dbvjcluqz Gamma Globulins PEP Interpretation HDL Cholesterol TSH Arterial Blood Glucose Arterial Blood Ionized Calcium Urine WBC (Auto) Urine Creatinine Urine Total Protein Crossmatch 05/02/21 05/02/21 05/02/21 04:34 05:23 12:00 WBC RBC Hgb Hct MCH RDW Plt Count Seg Neuts % (Manual) Lymphocytes % (Manual) Nucleated RBC % Seg Neutrophils # Man Lymphocytes # (Manual) PT ABG pH 7.487 H POC ABG pCO2 POC ABG pO2 78.6 L ABG pO2 ABG O2 Saturation ABG Base Excess ABG Hemoglobin 11.5 L ABG Oxyhemoglobin ABG Potassium ABG Chloride ABG Glucose 122 H Oxyhemoglobin Carboxyhemoglobin Sodium Potassium Chloride Carbon Dioxide BUN Creatinine Glucose POC Glucose 119 H Hemoglobin A1c Lactic Acid Calcium Phosphorus Magnesium Transferrin AST ALT Alkaline Phosphatase Total Creatine Kinase CK-MB (CK-2) Serum Total Protein Total Protein Albumin Egwpq-1-Wsgdegkcr Hihuk-7-Jgtwbacqi Gamma Globulins PEP Interpretation HDL Cholesterol TSH Arterial Blood Glucose 122 H Arterial Blood Ionized Calcium Urine WBC (Auto) Urine Creatinine Urine Total Protein Crossmatch See Detail 05/02/21 05/02/21 05/02/21 12:04 17:29 23:36 WBC RBC Hgb Hct MCH RDW Plt Count Seg Neuts % (Manual) Lymphocytes % (Manual) Nucleated RBC % Seg Neutrophils # Man Lymphocytes # (Manual) PT ABG pH POC ABG pCO2 POC ABG pO2 ABG pO2 ABG O2 Saturation ABG Base Excess ABG Hemoglobin ABG Oxyhemoglobin ABG Potassium ABG Chloride ABG Glucose Oxyhemoglobin Carboxyhemoglobin Sodium Potassium Chloride Carbon Dioxide BUN Creatinine Glucose POC Glucose 115 H 120 H 130 H Hemoglobin A1c Lactic Acid Calcium Phosphorus Magnesium Transferrin AST ALT Alkaline Phosphatase Total Creatine Kinase CK-MB (CK-2) Serum Total Protein Total Protein Albumin Zxkxg-8-Mybjgfxke Fkuol-1-Aycirgtit Gamma Globulins PEP Interpretation HDL Cholesterol TSH Arterial Blood Glucose Arterial Blood Ionized Calcium Urine WBC (Auto) Urine Creatinine Urine Total Protein Crossmatch 05/03/21 05/03/21 05/03/21 04:00 04:00 17:26 WBC 13.9 H RBC 3.22 L Hgb 8.7 L Hct 27.4 L MCH 27 L RDW 15.8 H Plt Count Seg Neuts % (Manual) Lymphocytes % (Manual) Nucleated RBC % Seg Neutrophils # Man Lymphocytes # (Manual) PT ABG pH POC ABG pCO2 POC ABG pO2 ABG pO2 ABG O2 Saturation ABG Base Excess ABG Hemoglobin ABG Oxyhemoglobin ABG Potassium ABG Chloride ABG Glucose Oxyhemoglobin Carboxyhemoglobin Sodium 146 H Potassium 3.5 L Chloride 107.5 H Carbon Dioxide BUN 40 H Creatinine 2.5 H Glucose 104 H POC Glucose 123 H Hemoglobin A1c Lactic Acid Calcium Phosphorus Magnesium Transferrin AST 53 H ALT Alkaline Phosphatase 149 H Total Creatine Kinase CK-MB (CK-2) Serum Total Protein Total Protein 5.2 L Albumin 1.5 L Tsiix-0-Scgglslpu Fajwz-3-Qwpoqwdxl Gamma Globulins PEP Interpretation HDL Cholesterol TSH Arterial Blood Glucose Arterial Blood Ionized Calcium Urine WBC (Auto) Urine Creatinine Urine Total Protein Crossmatch 05/04/21 05/04/21 05/04/21 01:24 04:48 04:48 WBC 14.3 H RBC 3.14 L Hgb 8.5 L Hct 26.3 L MCH 27 L RDW 15.8 H Plt Count Seg Neuts % (Manual) Lymphocytes % (Manual) Nucleated RBC % Seg Neutrophils # Man Lymphocytes # (Manual) PT ABG pH POC ABG pCO2 POC ABG pO2 ABG pO2 ABG O2 Saturation ABG Base Excess ABG Hemoglobin ABG Oxyhemoglobin ABG Potassium ABG Chloride ABG Glucose Oxyhemoglobin Carboxyhemoglobin Sodium Potassium 3.5 L Chloride Carbon Dioxide BUN 58 H Creatinine 3.4 H Glucose 168 H POC Glucose 146 H Hemoglobin A1c Lactic Acid Calcium Phosphorus 5.30 H Magnesium Transferrin AST ALT Alkaline Phosphatase Total Creatine Kinase CK-MB (CK-2) Serum Total Protein Total Protein Albumin Mpwvu-4-Bqnrwirys Sizpc-2-Hmaojacvg Gamma Globulins PEP Interpretation HDL Cholesterol 24 L TSH Arterial Blood Glucose Arterial Blood Ionized Calcium Urine WBC (Auto) Urine Creatinine Urine Total Protein Crossmatch 05/04/21 05/04/21 05/04/21 05:15 11:24 16:01 WBC RBC Hgb Hct MCH RDW Plt Count Seg Neuts % (Manual) Lymphocytes % (Manual) Nucleated RBC % Seg Neutrophils # Man Lymphocytes # (Manual) PT ABG pH POC ABG pCO2 POC ABG pO2 ABG pO2 ABG O2 Saturation ABG Base Excess ABG Hemoglobin ABG Oxyhemoglobin ABG Potassium ABG Chloride ABG Glucose Oxyhemoglobin Carboxyhemoglobin Sodium Potassium Chloride Carbon Dioxide BUN Creatinine Glucose POC Glucose 162 H 145 H 148 H Hemoglobin A1c Lactic Acid Calcium Phosphorus Magnesium Transferrin AST ALT Alkaline Phosphatase Total Creatine Kinase CK-MB (CK-2) Serum Total Protein Total Protein Albumin Liqev-5-Cuqstvhha Dacgj-0-Xicfrpokd Gamma Globulins PEP Interpretation HDL Cholesterol TSH Arterial Blood Glucose Arterial Blood Ionized Calcium Urine WBC (Auto) Urine Creatinine Urine Total Protein Crossmatch 05/04/21 05/05/21 05/05/21 23:32 04:00 05:14 WBC RBC Hgb Hct MCH RDW Plt Count Seg Neuts % (Manual) Lymphocytes % (Manual) Nucleated RBC % Seg Neutrophils # Man Lymphocytes # (Manual) PT ABG pH POC ABG pCO2 POC ABG pO2 ABG pO2 ABG O2 Saturation ABG Base Excess ABG Hemoglobin ABG Oxyhemoglobin ABG Potassium ABG Chloride ABG Glucose Oxyhemoglobin Carboxyhemoglobin Sodium Potassium 3.4 L Chloride Carbon Dioxide BUN 43 H Creatinine 2.7 H Glucose 124 H POC Glucose 134 H 120 H Hemoglobin A1c Lactic Acid Calcium 8.2 L Phosphorus Magnesium Transferrin AST ALT Alkaline Phosphatase Total Creatine Kinase CK-MB (CK-2) Serum Total Protein Total Protein Albumin Purrr-1-Aidfbhtdx Bflnt-6-Ewmlmaftz Gamma Globulins PEP Interpretation HDL Cholesterol TSH Arterial Blood Glucose Arterial Blood Ionized Calcium Urine WBC (Auto) Urine Creatinine Urine Total Protein Crossmatch
[2021-05-05] MEDS: MEROPENEM/NS 1 GRAM/100 ML 1 GRAM/100 ML BAG IV SCH (15:50)
[2021-05-05] MEDS: FLUCONAZOLE 200 MG 200 MG/100 ML BAG IV SCH (15:50)
--- NOTE | 2021-05-05 17:42 | Progress Note ---
<TANYAHENRIETTA H. - Last Filed: 05/05/21 17:42> Assessment and Plan Assessment and plan: This is a 80-year-old female [place] [facility] resident with GERD, hypothyroidism, hyperlipidemia, schizophrenia and dementia admitted with hypothermia, hyponatremia, hypokalemia, lactic acidosis, acute kidney injury, rhabdomyolysis and hyperosmolar nonketotic state. Neuro: Acute CVA, acute metabolic encephalopathy, normal pressure hydrocephalus -CT head shows lateral ventricles and third ventricle dilation, raises possibility of normal pressure hydrocephalus -Neurology and neurosurgery consulted, appreciate recommendations -neurosurgery has no acute interventions -04/29 s/p spinal tap removal 24 mL, mental is unchanged -csf fluid showed {14 wbc,324 rbc,normal protein and glucose ,c/s is unremarkable so far} -MRI brain is remarkable for multiple ischemic event cortical as well as subcortical in both hemisphere and in all distribuation with slight petechial hemorrhage is noted findings is suggestive of possible embolic event with water shed infarct can not be totally excluded. -MRA/MRV completed-see chart for details -LINCOLN tentatively scheduled for 05/06 AM -ASA 81 and lipitor -LDL noted -PT/ST/OT consulted -Aspiration/seizure precautions -Maintain sleep-wake cycle -Avoid delirium -Correct electrolyte derangements -Hold off on restarting home antipsychotic medications when obtained -Risperidone 3 mg, Donepazil 5 mg Cardio: Hypotension -s/p Vasopressor support with Levophed -MAP goal above 65 -Midodrine 10 mg TID -Blood pressure monitoring per protocol -Home amlodipine 10 mg on hold Respiratory: Acute hypoxic respiratory failure -s/p Bipap and ventimask -s/p bronchoscopy on 04/26 -Intubated 04/26 with 7.5 oett at 22 lips -Am vent settings: AC rate 14, tidal volume 450, PEEP 6, FiO2 30% -see RT notes for titration -AM ABG noted -s/p racimec epi x2 04/22 and 04/23 -Supplemental oxygen as needed -SPO2 monitoring -Pulmonary hygiene -Repeat CXR shows increased interstitial prominence of densities in bilateral lungs GI: Hypoalbuminemia, transaminitis -Presented with transaminitis -Trend LFTs -Ntr consult for TF -FWF 140 ml Q 4 hr -24 hours +170 ml -HD 05/04 with removal of 1 L -BR: Senokot -PPI -Nutritional supplementation -BMS in place : Aacute kidney injury likely secondary to vasomotor nephropathy, urinary retention, Hypokalemia, hyperphosphatemia -FeNA 0.50 indicating prerenal sate -Nephrology consulted, appreciate recommendations -HD initiated 04/27 -HD per nephrology -Luther catheter placed for strict intake and output; changed 05/02 -Avoid nephrotoxic medications -Trend BMP, CK -Renally dose medications -renal US WNL per read -May need to be initiated on phosphate binder ID: Sepsis likely 2/2 UTI and PNA -ID consulted, appreciate recommendations -COVID-19 PCR negative -04/26/2021 sputum culture: Roselyn nonalbicans -04/29/2021 UA showed significant pyuria. -UC Roselyn-> fluconazole -Lumbar puncture with CSF showing 14 WBC, 324 RBC, glucose 161, protein 51. -Abx per ID: IV meropenem, renally adjusted + fluconazole -Trend WBC and fever curve -f/u cultures Endo: s/p HHNK, h/o hypothyroidism -Restarted home levothyroxine (50 mcg q day) -s/p Insulin drip x2 -SSI -TSH 6.04, T4 0.93 -Avoid hypoglycemia Heme: Leukocytosis, thrombocytopenia (resolved), anemia -HIT (-) -Trend CBC -Transfuse to hemoglobin less than 7 -s/p 1 unit PRBC -SCD to bilateral lower extremities while in bed -BUE dopplar US negative for DVT The high probability of a clinically significant, sudden or life threatening deterioration of the [multi] system(s) required my full and direct attention, intervention and personal management. The aggregate critical care time was [60] minutes. This time is in addition to time spent performing reported procedures but includes the following: [x] Data Review and interpretation [x] Patient assessment and monitoring of vital signs [x] Documentation [x] Medication orders and management Disposition Plan: icu Total Time Spent with Patient (Minutes): 60 History Interval history: This is a 80-year-old female who was [place] [facility] resident [facility] [place] with GERD, hypothyroidism, hyperlipidemia, schizophrenia and dementia presented to the emergency department on 04/20 after being found unresponsive by the staff via EMS. Per EMS glucose levels read as high. Work-up in the emergency department revealed severe hypernatremia, leukocytosis, metabolic acidosis, hyperchloremia, elevated BUN/creatinine, lactic acidosis and hyperglycemia. Patient was also hypothermic on admit. CT head showed findings suggestive of the possibility of normal pressure hydrocephalus. Patient was admitted to the hospitalist service with acute metabolic encephalopathy, diabetic hyperosmolar nonketotic state, acute kidney injury, hypernatremia, rhabdomyolysis and leukocytosis with consults to nephrology and [facility]. 04/21: Given 1 L LR bolus per nephrology and D5W increased to 125 mL's per hour, COVID-19 PCR pending, CXR and ABG ordered as patient was weaned from BiPAP to 3 L nasal cannula however was uptitrated back to nonrebreather. Will obtain blood cultures x2 given her leukocytosis and hypothermia. Replace potassium. Neurosurgery and neurology consulted and Luther catheter placed. 04/22: Improvement to sodium noted, slight hypokalemia which will be repleted, slight improvement to renal function, LFTs and rhabdomyolysis. Seen by neurosurgery today. Patient still making urine. transition to ssi and start TF as AG 15 04/23/2021: Given racemic epinephrine again due to stridor, continue IV fluids per nephrology, continue to trend sodium and BMP. 04/24/2021: 70/30 increased d/t hyperglycemia but recent BMP showed BG>300, gave additional 5 units IV insulin and ordered 5 units TID scheduled. However after IV insulin her PCOT was 400. Start on insulin gtt for hyperglycemia. Per RN she was not of IV D5 overnight d/t having one IV which was needed for emergency. Day RN did start dextrose. Remains with hyperglycemia. 04/25: Patient obtunded, withdrawal to pain only, on 50%Venti mask SPO2 abobe 92%. Plan to transition to SubQ insulin. Patient with mild hypernatremia this am, FWF added, will stop IVF for now. 04/26: Patient s/p intubation this am. Mentation is unchanged, plan for MRI brain today per NeuroSurg. Still hyperglycemic, hypernatremia improved, D5W D/katlyn, and basal insulin adjusted. 04/27: Bronch overnight. CXR with mild improvement. D/w Nephro plan for HD today, RIJ VasCath inserted. MRI on hold per [facility] patient is too unstable at this time, plan for possible spinal drained tomorrow to see if mentation will improve. 04/28: Tolerated HD overnight, only UF. Mentation remains the same. D/w CCM plan for possible large volume spinal tap under fluoroscopy today. Plan for possible HD again today. Continue FWF for elevated Na. 04/29: MARY overnight. Plan for spinal tap this am. febrile overnight with leukocytosis, remains on pressors and more tachycardic now. Will panculture patient, and empiric IV was initiated. Remains hyperglycemic, basal insulin adjusted. 04/30: Patient's mentation remains unchanged post spinal tap. Plan for possible MRI brain next week. Afebrile overnight and leukocytosis improved, However, vent settings are going up and this am ABG with hypoxia, this am CXR with worsening opacities. Patient with 3+ pitting edema. Continue HD per Nephro. Continue current empiric IV abx, f/u on culture data, might need to get ID on board if worsen. 05/01: Mentation is unchanged, still on pressors. Febrile this am, continue IV abx, ID consulted. 3L out yesterday, plan for HD again tomorrow. Plt count improved, might need to restart AC, will D/w CCM. 05/02: No change in mentation and she is now noted to be decorticating to pain -> MRI brain ordered. Scheduled for HD today. ID consult completed. 05/03: Neurology consulted given MRI findings of multiple acute CVAs, LINCOLN ordered, EEG pending, started on aspirin and Lipitor. updated POA 05/04: Received hemodialysis today, will schedule for LINCOLN today however HD was ongoing at the time neurology will obtain MRA brain and neck then consider LINCOLN, increasing midodrine to aid in weaning Levophed. 05/05: MRA/MRV completed today, urine culture grew Roselyn and was started on fluconazole, LINCOLN tentatively scheduled for tomorrow. Resume tube feeding and n.p.o. at midnight. Hospitalist Physical - Physical exam Narrative exam: General appearance: Present: no acute distress, other (Intubated) - EENT Eyes: Present: PERRL, EOM intact ENT: dentition normal - Neck Neck: Present: normal ROM - Respiratory Respiratory effort: normal Respiratory: bilateral: diminished - Cardiovascular Rhythm: regular Heart Sounds: Present: S1 & S2 - Extremities Extremities: no ischemia, pulses intact, pulses symmetrical, normal temperature, normal color Peripheral Pulses: within normal limits - Abdominal General gastrointestinal: soft, non-tender, non-distended, normal bowel sounds - Integumentary Integumentary: Present: warm, dry - Psychiatric Psychiatric: other - Neurologic Neurologic: other (Pupils equal round reactive, opens eyes and attempts to track but does not follow commands.) - Allied Health Allied health notes reviewed: nursing, RT, social work - Constitutional Vitals: Temp Pulse Resp BP Pulse Ox 98.1 F 86 17 136/70 98 05/05/21 16:35 05/05/21 16:12 05/05/21 13:30 05/05/21 16:12 05/05/21 16:12 General appearance: Present: no acute distress, other (Intubated) HEART Score - HEART Score Troponin: Troponin T 0.021 ng/mL (0.00-0.029) 04/20/21 17:10 Results - Labs CBC & Chem 7: 05/04/21 04:48 05/05/21 04:00 Labs: Laboratory Last Values WBC 14.3 K/mm3 (4.5-11.0) H 05/04/21 04:48 RBC 3.14 M/mm3 (3.65-5.03) L 05/04/21 04:48 Hgb 8.5 gm/dl (10.1-14.3) L 05/04/21 04:48 Hct 26.3 % (30.3-42.9) L 05/04/21 04:48 MCV 84 fl (79-97) 05/04/21 04:48 MCH 27 pg (28-32) L 05/04/21 04:48 MCHC 32 % (30-34) 05/04/21 04:48 RDW 15.8 % (13.2-15.2) H 05/04/21 04:48 Plt Count 236 K/mm3 (140-440) 05/04/21 04:48 Add Manual Diff Complete 04/28/21 04:00 Total Counted 100 04/28/21 04:00 Seg Neutrophils % Kraft Digester Operator 04/28/21 04:00 Seg Neuts % (Manual) 77.0 % (40.0-70.0) H 04/26/21 09:33 Band Neutrophils % 2.0 % 04/28/21 04:00 Lymphocytes % (Manual) 1.0 % (13.4-35.0) L 04/28/21 04:00 Reactive Lymphs % (Man) 0 % 04/28/21 04:00 Monocytes % (Manual) 1.0 % (0.0-7.3) 04/28/21 04:00 Eosinophils % (Manual) 3.0 % (0.0-4.3) 04/28/21 04:00 Metamyelocytes % 1.0 % 04/28/21 04:00 Myelocytes % 0 % 04/28/21 04:00 Promyelocytes % 0 % 04/28/21 04:00 Blast Cells % 0 % 04/28/21 04:00 Nucleated RBC % 4.0 % (0.0-0.9) H 04/28/21 04:00 Seg Neutrophils # Man 11.6 K/mm3 (1.8-7.7) H 04/28/21 04:00 Band Neutrophils # 0.3 K/mm3 04/28/21 04:00 Lymphocytes # (Manual) 0.1 K/mm3 (1.2-5.4) L 04/28/21 04:00 Abs React Lymphs (Man) 0.0 K/mm3 04/28/21 04:00 Monocytes # (Manual) 0.1 K/mm3 (0.0-0.8) 04/28/21 04:00 Eosinophils # (Manual) 0.4 K/mm3 (0.0-0.4) 04/28/21 04:00 Basophils # (Manual) 0.0 K/mm3 (0.0-0.1) 04/28/21 04:00 Metamyelocytes # 0.1 K/mm3 04/28/21 04:00 Myelocytes # 0.0 K/mm3 04/28/21 04:00 Promyelocytes # 0.0 K/mm3 04/28/21 04:00 Blast Cells # 0.0 K/mm3 04/28/21 04:00 WBC Morphology Not Reportable 04/28/21 04:00 Hypersegmented Neuts Not Reportable 04/28/21 04:00 Hyposegmented Neuts Not Reportable 04/28/21 04:00 Hypogranular Neuts Not Reportable 04/28/21 04:00 Smudge Cells Not Reportable 04/28/21 04:00 Toxic Granulation Not Reportable 04/28/21 04:00 Toxic Vacuolation Not Reportable 04/28/21 04:00 Dohle Bodies Not Reportable 04/28/21 04:00 Pelger-Huet Anomaly Not Reportable 04/28/21 04:00 Moni Rods Not Reportable 04/28/21 04:00 Platelet Estimate Consistent w auto 04/28/21 04:00 Clumped Platelets Not Reportable 04/28/21 04:00 Plt Clumps, EDTA Not Reportable 04/28/21 04:00 Large Platelets Few 04/28/21 04:00 Giant Platelets Not Reportable 04/28/21 04:00 Platelet Satelliting Not Reportable 04/28/21 04:00 Plt Morphology Comment Not Reportable 04/28/21 04:00 RBC Morphology Not Reportable 04/28/21 04:00 Dimorphic RBCs Not Reportable 04/28/21 04:00 Polychromasia Not Reportable 04/28/21 04:00 Hypochromasia Not Reportable 04/28/21 04:00 Poikilocytosis Not Reportable 04/28/21 04:00 Anisocytosis Not Reportable 04/28/21 04:00 Microcytosis Not Reportable 04/28/21 04:00 Macrocytosis Not Reportable 04/28/21 04:00 Spherocytes Not Reportable 04/28/21 04:00 Pappenheimer Bodies Not Reportable 04/28/21 04:00 Sickle Cells Not Reportable 04/28/21 04:00 Target Cells 1+ 04/28/21 04:00 Tear Drop Cells Not Reportable 04/28/21 04:00 Ovalocytes Not Reportable 04/28/21 04:00 Helmet Cells Not Reportable 04/28/21 04:00 Parkinson-Ruma Bodies Not Reportable 04/28/21 04:00 Nicholson Rings Not Reportable 04/28/21 04:00 Salvador Cells Not Reportable 04/28/21 04:00 Bite Cells Not Reportable 04/28/21 04:00 Crenated Cell Not Reportable 04/28/21 04:00 Elliptocytes Not Reportable 04/28/21 04:00 Acanthocytes (Spur) Not Reportable 04/28/21 04:00 Rouleaux Not Reportable 04/28/21 04:00 Hemoglobin C Crystals Not Reportable 04/28/21 04:00 Schistocytes Not Reportable 04/28/21 04:00 Malaria parasites Not Reportable 04/28/21 04:00 Herrera Bodies Not Reportable 04/28/21 04:00 Hem Pathologist Commnt No 04/28/21 04:00 PT 15.3 Sec. (12.2-14.9) H 04/28/21 05:00 INR 1.09 (0.87-1.13) 04/28/21 05:00 APTT 36.6 Sec. (24.2-36.6) 04/28/21 05:00 Heparin Anti-Xa, Unfract Negative (Negative) 04/24/21 17:29 ABG pH 7.487 (7.320-7.450) H 05/02/21 04:34 POC ABG pCO2 35.3 mmHg (32.0-48.0) 05/02/21 04:34 ABG pCO2 31.6 mm Hg 04/21/21 15:47 POC ABG pO2 78.6 mmHg (83-108) L 05/02/21 04:34 ABG pO2 168.1 mm Hg (80.0-90.0) H 04/21/21 15:47 POC ABG HCO3 26.1 05/02/21 04:34 ABG HCO3 23.3 mmol/L (20.0-26.0) 04/21/21 15:47 ABG O2 Saturation 96.0 (0-100) 05/02/21 04:34 ABG O2 Content 12.7 (0.0-44) 04/21/21 15:47 POC ABG Base Excess 2.9 05/02/21 04:34 ABG Base Excess 0.3 mmol/L (-2.0-3.0) 04/21/21 15:47 ABG Hemoglobin 11.5 (12.0-17.5) L 05/02/21 04:34 ABG Oxyhemoglobin 95.1 (94-98) 05/02/21 04:34 ABG Carboxyhemoglobin 1.0 % (0.0-5.0) 04/21/21 15:47 ABG Methemoglobin 0.3 (0.0-1.5) 05/02/21 04:34 ABG Sodium 138.6 mmol/L (136.0-145.0) 05/02/21 04:34 ABG Potassium 3.4 mmol/L (3.40-4.50) 05/02/21 04:34 ABG Chloride 105.0 mmol/L (98-107) 05/02/21 04:34 ABG Glucose 122 mg/dL (65-95) H 05/02/21 04:34 VBG pH 7.397 (7.320-7.420) 04/20/21 17:10 Oxyhemoglobin 97.5 % (95.0-99.0) 04/21/21 15:47 Carboxyhemoglobin 0.6 (0.5-1.5) 05/02/21 04:34 FiO2 100 % 04/21/21 15:47 FiO2 % 40.0 05/02/21 04:34 Sodium 141 mmol/L (137-145) 05/05/21 04:00 Potassium 3.4 mmol/L (3.6-5.0) L 05/05/21 04:00 Chloride 103.0 mmol/L (98-107) 05/05/21 04:00 Carbon Dioxide 27 mmol/L (22-30) 05/05/21 04:00 Anion Gap 14 mmol/L 05/05/21 04:00 BUN 43 mg/dL (7-17) H 05/05/21 04:00 Creatinine 2.7 mg/dL (0.6-1.2) H 05/05/21 04:00 Estimated GFR 21 ml/min 05/05/21 04:00 BUN/Creatinine Ratio 16 % 05/05/21 04:00 Glucose 124 mg/dL (65-100) H 05/05/21 04:00 POC Glucose 81 mg/dL (70-105) 05/05/21 16:09 Hemoglobin A1c 17.1 % (4-6) H 04/22/21 15:55 Lactic Acid 1.90 mmol/L (0.7-2.0) 04/20/21 19:56 Calcium 8.2 mg/dL (8.4-10.2) L 05/05/21 04:00 Phosphorus 4.40 mg/dL (2.5-4.5) 05/05/21 04:00 Magnesium 1.70 mg/dL (1.7-2.3) 05/05/21 04:00 Iron 62 ug/dL (37-170) 04/24/21 17:29 TIBC 285 mcg/dL (250-450) 04/24/21 17:29 % Saturation 21.75 % 04/24/21 17:29 Transferrin 112 mg/dl (192-382) L 04/24/21 17:29 Total Bilirubin 0.20 mg/dL (0.1-1.2) 05/03/21 04:00 Direct Bilirubin < 0.2 mg/dL (0-0.2) 04/29/21 04:00 Indirect Bilirubin 0.1 mg/dL 04/29/21 04:00 AST 53 units/L (5-40) H 05/03/21 04:00 ALT 55 units/L (7-56) 05/03/21 04:00 Alkaline Phosphatase 149 units/L (35-129) H 05/03/21 04:00 Ammonia 29.0 umol/L (25-60) 04/20/21 17:10 Total Creatine Kinase 1000 units/L (30-135) H 04/27/21 07:43 CK-MB (CK-2) 36.0 ng/mL (0.0-4.0) H 04/20/21 17:10 CK-MB (CK-2) Rel Index 0.9 (0-4) 04/20/21 17:10 Troponin T 0.021 ng/mL (0.00-0.029) 04/20/21 17:10 Serum Total Protein 5.5 g/dL (6.1-8.1) L 04/22/21 08:59 Total Protein 5.2 g/dL (6.3-8.2) L 05/03/21 04:00 Albumin 1.5 g/dL (3.9-5) L 05/03/21 04:00 Albumin/Globulin Ratio 0.4 % 05/03/21 04:00 Llmag-4-Sxmayfrek 0.6 g/dL (0.2-0.3) H 04/22/21 08:59 Jsxpn-0-Xxejjkrmt 1.0 g/dL (0.5-0.9) H 04/22/21 08:59 Beta Globulins 0.3 g/dL (0.2-0.5) 04/22/21 08:59 Gamma Globulins 0.6 g/dL (0.8-1.7) L 04/22/21 08:59 Abnorm Protein Band 1 see below 04/22/21 08:59 PEP Interpretation see below H 04/22/21 08:59 Triglycerides 80 mg/dL (2-149) 05/04/21 04:48 Cholesterol 90 mg/dL (50-199) 05/04/21 04:48 LDL Cholesterol Direct 51 mg/dL (50-130) 05/04/21 04:48 HDL Cholesterol 24 mg/dL (40-59) L 05/04/21 04:48 Cholesterol/HDL Ratio 3.75 % 05/04/21 04:48 Serotonin Release Assay See scanned result 04/24/21 17:29 TSH 6.040 mlU/mL (0.270-4.200) H 04/20/21 17:10 Free T4 0.93 ng/dL (0.76-1.46) 04/20/21 17:10 Arterial Blood Glucose 122 mg/dL (65-95) H 05/02/21 04:34 Arterial Blood Ionized Calcium 4.5 mg/dL (4.6-5.3) L 04/28/21 05:18 Urine Color Yellow (Yellow) 04/29/21 13:30 Urine Turbidity Turbid (Clear) 04/29/21 13:30 Urine pH 5.0 (5.0-7.0) 04/29/21 13:30 Ur Specific [place] 1.010 (1.003-1.030) 04/29/21 13:30 Urine Protein 100 mg/dl mg/dL (Negative) 04/29/21 13:30 Urine Glucose (UA) 150 mg/dL (Negative) 04/29/21 13:30 Urine Ketones Neg mg/dL (Negative) 04/29/21 13:30 Urine Blood Lg (Negative) 04/29/21 13:30 Urine Nitrite Neg (Negative) 04/29/21 13:30 Urine Bilirubin Neg (Negative) 04/29/21 13:30 Urine Urobilinogen < 2.0 mg/dL (<2.0) 04/29/21 13:30 Ur Leukocyte Esterase Lg (Negative) 04/29/21 13:30 Urine WBC (Auto) > 182.0 /HPF (0.0-6.0) H 04/29/21 13:30 Urine RBC (Auto) > 182.0 /HPF (0.0-6.0) 04/29/21 13:30 U Epithel Cells (Auto) 4.0 /HPF (0-13.0) 04/29/21 13:30 Urine WBC Clumps 3+ /HPF 04/29/21 13:30 Urine Mucus Few /HPF 04/29/21 13:30 Urine Yeast (Budding) 3+ /HPF 04/29/21 13:30 Urine Osmolality 446 Mosm/kg 04/21/21 08:01 Urine Creatinine 44.3 mg/dL (0.1-20.0) H 04/21/21 08:01 Urine Sodium 71 mmol/L 04/21/21 08:01 Urine Total Protein 12 mg/dL (5-11.8) H 04/21/21 08:01 CSF Appearance Clear 04/29/21 11:45 CSF Color Colorless 04/29/21 11:45 CSF WBC 14 /mm3 (1-10) 04/29/21 11:45 CSF RBC 324 /mm3 (0-0) 04/29/21 11:45 CSF Seg Neutrophils 50.0 % (0-6) 04/29/21 11:45 CSF Lymphocytes % 40.0 % (40-80) 04/29/21 11:45 CSF Reactive Lymphs Not Reportable 04/29/21 11:45 CSF Monocytes % 10.0 % (15-45) 04/29/21 11:45 CSF Eosinophils % Not Reportable 04/29/21 11:45 CSF Basophils Not Reportable 04/29/21 11:45 CSF Pathologist Review C 04/29/21 11:45 CSF Glucose 161 mg/dL 04/29/21 11:45 CSF Total Protein 51 mg/dL 04/29/21 11:45 Plasma/Serum Alcohol < 0.01 % (0-0.07) 04/20/21 17:10 Heparin-induced Plt Ab Negative (Negative) 04/24/21 17:29 UF Heparin High Dose 1 % Release 04/24/21 17:29 EFE UFH Low Dose 0.1 0 % Release 04/24/21 17:29 EFE UFH Low Dose 0.5 0 % Release 04/24/21 17:29 Coronavirus (PCR) Negative (Negative) 04/21/21 Unknown Hepatitis A IgM Ab Non-reactive (NonReactive) 04/27/21 12:49 Hep Bs Antigen Nonreactive (Negative) 04/27/21 12:49 Hep B Core IgM Ab Non-reactive (NonReactive) 04/27/21 12:49 Hepatitis C Antibody Non-reactive (NonReactive) 04/27/21 12:49 Blood Type O POSITIVE 05/02/21 12:00 Antibody Screen Negative 05/02/21 12:00 Crossmatch See Detail 05/02/21 12:00 Microbiology: Microbiology 04/26/21 14:50 Tracheal Aspirate Sputum Culture - Final 05/02/21 Unknown Urine,Catheterized - Indwelling Catheter Urine Culture - Preliminary YEAST 04/29/21 13:15 Peripheral/Venous Blood Culture - Final NO GROWTH AFTER 5 DAYS Luther/IV: Voiding Method Indwelling Catheter Active Medications - Current Medications Current Medications: Generic Name Dose Route Start Last Admin Trade Name Freq PRN Reason Stop Dose Admin Acetaminophen 650 mg 04/20/21 21:31 05/01/21 18:15 Acetaminophen 325 Mg Tab PO 650 mg Q4H PRN Administration Pain MILD(1-3)/Fever >100.5/TURCIOS Albuterol 2.5 mg 04/22/21 14:49 04/23/21 15:18 Albuterol 2.5 Mg/3 Ml Nebu IH 2.5 mg Q4HRT PRN Administration Shortness Of Breath Lipase/Protease/Amylase 1 each 04/25/21 14:13 Lipase 10,500/Protease 25,000/Amylase 43,750 (Units) Dr Vasquez FEEDTUBE PRN PRN For Clogged Feeding Tube Aspirin 81 mg 05/04/21 10:00 05/05/21 15:49 Aspirin 81 Mg Tab Chew FEEDTUBE 81 mg QDAY AZIZA Administration Atorvastatin Calcium 40 mg 05/04/21 22:00 05/04/21 21:32 Atorvastatin 40 Mg Tab FEEDTUBE 40 mg QHS AZIZA Administration Dextrose 50 ml 04/24/21 11:36 Dextrose 50% In Water (25gm) 50 Ml Syringe IV Q30MIN PRN Hypoglycemia Protocol Famotidine 10 mg 04/27/21 10:00 05/05/21 15:50 Famotidine 10 Mg Tab FEEDTUBE 10 mg BID AZIZA Administration Hydralazine HCl 10 mg 04/24/21 21:22 Hydralazine 20 Mg/1 Ml Inj IV Q4HR PRN elevated BP Hydrophilic Ointment 1 applic 04/26/21 11:16 Lip Therapy Vaseline TP Q2HR PRN Dry Lips NORepinephrine/NS 8 MG-250 ML 8 mg in 250 mls @ 3.75 mls/hr 04/26/21 16:00 05/04/21 21:34 Norepinephrine/Ns 8 Mg-250 Ml (Double Conc) IV 0 mcg/min TITRATE AZIZA 0 mls/hr Titration Protocol 2 MCG/MIN MEROPENEM/NS 1 GRAM/100 ML 1 gram in 100 mls @ 100 mls/hr 05/03/21 15:00 05/05/21 15:50 Merrem/Ns 1 Gram/100 Ml IV 100 mls/hr 1500 [facility] Administration Protocol Sodium Chloride 100 mls @ 999 mls/hr 05/04/21 11:30 Nacl 0.9% IV MITCH PRN Hypotension Fluconazole 200 mg in 100 mls @ 100 mls/hr 05/05/21 15:00 05/05/21 15:50 Diflucan IV 05/10/21 14:59 100 mls/hr Q24H AZIZA Administration Protocol Insulin Human Lispro 0 unit 04/25/21 18:00 05/05/21 12:15 Insulin Lispro 100 Unit/Ml SUB-Q Not Given Q6HR [facility] Protocol Levothyroxine Sodium 50 mcg 05/03/21 06:00 05/05/21 05:28 Levothyroxine 50 Mcg Tab PO 50 mcg DAILY@0600 [facility] Administration Lorazepam 1 mg 04/26/21 11:15 04/30/21 23:00 Lorazepam 2 Mg/Ml Vial IV 1 mg Q4H PRN Administration Sedation Metoclopramide HCl 5 mg 04/20/21 21:31 Metoclopramide 10 Mg/2 Ml Inj IV Q6H PRN Nausea And Vomiting Midodrine 10 mg 05/04/21 14:00 05/05/21 15:50 Midodrine 5 Mg Tab PO 10 mg TID AZIZA Administration Multi-Ingred Cream/Lotion/Oil/Oint 1 applic 04/26/21 11:16 Mineral Oil/Petrolatum, White Ophth Oint 3.5 Gm OU Q4HR PRN Dry Eye(s) Ondansetron HCl 4 mg 04/20/21 21:31 Ondansetron 4 Mg/2 Ml Inj IV Q8H PRN Nausea And Vomiting Senna/Docusate Sodium 1 tab 04/26/21 22:00 05/05/21 12:14 Sennosides/Docusate Sodium 8.6/50 Mg Tab FEEDTUBE Not Given BID AZIZA Simple Syrup 15 ml 04/25/21 14:13 Simple Syrup 15 Ml FEEDTUBE PRN PRN Hypoglycemia Simple Syrup 30 ml 04/25/21 14:13 Simple Syrup 15 Ml FEEDTUBE PRN PRN Hypoglycemia Sodium Bicarbonate 325 mg 04/25/21 14:13 04/27/21 13:00 Sodium Bicarbonate 325 Mg Tab FEEDTUBE 325 mg PRN PRN Administration For Clogged Feeding Tube Sodium Bicarbonate 1,300 mg 04/27/21 14:00 05/05/21 15:50 Sodium Bicarbonate 650 Mg Tab PO 1,300 mg TID AZIZA Administration Sodium Chloride 10 ml 04/20/21 22:00 05/05/21 15:49 Sodium Chloride 0.9% 10 Ml Flush Syringe IV 10 ml BID AZIZA Administration Sodium Chloride 10 ml 04/20/21 21:31 Sodium Chloride 0.9% 10 Ml Flush Syringe IV PRN PRN LINE FLUSH Nutrition/Malnutrition Assess - Dietary Evaluation Nutrition/Malnutrition Findings: Nutrition Notes Start: 04/21/21 12:15 Freq: Status: Active Protocol: Document 05/04/21 16:15 JOSE (Rec: 05/04/21 16:26 JOSE [id number]) Nutrition Notes Initial or Follow up Brief Note Current Diet TF-Nepro w/CARBSTEADY @ 32 ml/ hr (since 04/29). Height 5 ft 2 in Weight 72.4 kg [place] Body Weight (kg) 50.00 BMI 29.2 Weight change and time frame No body weight change reported . Weight Status Overweight Subjective/Other Information RD consult for routine F/U on TF tolerance. TF continues as prescribed, therefore, well tolerated. Percent of energy/protein needs met: Prescribed TF-Nepro w/ CARBSTEADY @ 32 ml/hr provides for energy/protein needs (1, 389 Kcal/63 g) during LOS, 100 % Kcal; 72% AA. Current % PO Other Minimum of two criteria No #1 Nutrition Diagnosis Inadequate oral intake Diagnosis Progress(for reassessment Continues documentation) Nutrition Intervention Nutrition Support: Continue TF to Nepro w/ CARBSTEADY @ 32 ml/hr. Flush: 140 ml water Q 4 hr, or as per MD. % RDI: 100% Kcal; 72% AA. Goal #1 Provide at least 75% of energy /protein needs through Enteral Feeding during LOS. Follow-Up By: 05/11/21 Additional Comments Continue monitoring TF tolerance and BM. <TACHO RUBALCAVA - Last Filed: 05/14/21 13:22> Assessment and Plan Assessment and plan: I saw and evaluated the patient. Discussed with the nurse practitioner and agree with their findings and plan as documented in this note. Hospitalist Physical - Constitutional Vitals: Temp Pulse Resp BP Pulse Ox 99.9 F H 102 H 23 108/55 100 05/14/21 11:22 05/14/21 12:31 05/14/21 12:31 05/14/21 12:31 05/14/21 12:31 HEART Score - HEART Score Troponin: Troponin T 0.021 ng/mL (0.00-0.029) 04/20/21 17:10 Results - Labs CBC & Chem 7: 05/14/21 04:43 05/14/21 04:43 Labs: Laboratory Last Values WBC 10.1 K/mm3 (4.5-11.0) 05/14/21 04:43 RBC 3.02 M/mm3 (3.65-5.03) L 05/14/21 04:43 Hgb 8.3 gm/dl (10.1-14.3) L 05/14/21 04:43 Hct 25.6 % (30.3-42.9) L 05/14/21 04:43 MCV 85 fl (79-97) 05/14/21 04:43 MCH 28 pg (28-32) 05/14/21 04:43 MCHC 33 % (30-34) 05/14/21 04:43 RDW 15.5 % (13.2-15.2) H 05/14/21 04:43 Plt Count 482 K/mm3 (140-440) H 05/14/21 04:43 Add Manual Diff Complete 04/28/21 04:00 Total Counted 100 04/28/21 04:00 Seg Neutrophils % Kraft Digester Operator 04/28/21 04:00 Seg Neuts % (Manual) 77.0 % (40.0-70.0) H 04/26/21 09:33 Band Neutrophils % 2.0 % 04/28/21 04:00 Lymphocytes % (Manual) 1.0 % (13.4-35.0) L 04/28/21 04:00 Reactive Lymphs % (Man) 0 % 04/28/21 04:00 Monocytes % (Manual) 1.0 % (0.0-7.3) 04/28/21 04:00 Eosinophils % (Manual) 3.0 % (0.0-4.3) 04/28/21 04:00 Metamyelocytes % 1.0 % 04/28/21 04:00 Myelocytes % 0 % 04/28/21 04:00 Promyelocytes % 0 % 04/28/21 04:00 Blast Cells % 0 % 04/28/21 04:00 Nucleated RBC % 4.0 % (0.0-0.9) H 04/28/21 04:00 Seg Neutrophils # Man 11.6 K/mm3 (1.8-7.7) H 04/28/21 04:00 Band Neutrophils # 0.3 K/mm3 04/28/21 04:00 Lymphocytes # (Manual) 0.1 K/mm3 (1.2-5.4) L 04/28/21 04:00 Abs React Lymphs (Man) 0.0 K/mm3 04/28/21 04:00 Monocytes # (Manual) 0.1 K/mm3 (0.0-0.8) 04/28/21 04:00 Eosinophils # (Manual) 0.4 K/mm3 (0.0-0.4) 04/28/21 04:00 Basophils # (Manual) 0.0 K/mm3 (0.0-0.1) 04/28/21 04:00 Metamyelocytes # 0.1 K/mm3 04/28/21 04:00 Myelocytes # 0.0 K/mm3 04/28/21 04:00 Promyelocytes # 0.0 K/mm3 04/28/21 04:00 Blast Cells # 0.0 K/mm3 04/28/21 04:00 WBC Morphology Not Reportable 04/28/21 04:00 Hypersegmented Neuts Not Reportable 04/28/21 04:00 Hyposegmented Neuts Not Reportable 04/28/21 04:00 Hypogranular Neuts Not Reportable 04/28/21 04:00 Smudge Cells Not Reportable 04/28/21 04:00 Toxic Granulation Not Reportable 04/28/21 04:00 Toxic Vacuolation Not Reportable 04/28/21 04:00 Dohle Bodies Not Reportable 04/28/21 04:00 Pelger-Huet Anomaly Not Reportable 04/28/21 04:00 Moni Rods Not Reportable 04/28/21 04:00 Platelet Estimate Consistent w auto 04/28/21 04:00 Clumped Platelets Not Reportable 04/28/21 04:00 Plt Clumps, EDTA Not Reportable 04/28/21 04:00 Large Platelets Few 04/28/21 04:00 Giant Platelets Not Reportable 04/28/21 04:00 Platelet Satelliting Not Reportable 04/28/21 04:00 Plt Morphology Comment Not Reportable 04/28/21 04:00 RBC Morphology Not Reportable 04/28/21 04:00 Dimorphic RBCs Not Reportable 04/28/21 04:00 Polychromasia Not Reportable 04/28/21 04:00 Hypochromasia Not Reportable 04/28/21 04:00 Poikilocytosis Not Reportable 04/28/21 04:00 Anisocytosis Not Reportable 04/28/21 04:00 Microcytosis Not Reportable 04/28/21 04:00 Macrocytosis Not Reportable 04/28/21 04:00 Spherocytes Not Reportable 04/28/21 04:00 Pappenheimer Bodies Not Reportable 04/28/21 04:00 Sickle Cells Not Reportable 04/28/21 04:00 Target Cells 1+ 04/28/21 04:00 Tear Drop Cells Not Reportable 04/28/21 04:00 Ovalocytes Not Reportable 04/28/21 04:00 Helmet Cells Not Reportable 04/28/21 04:00 Parkinson-Ruma Bodies Not Reportable 04/28/21 04:00 Nicholson Rings Not Reportable 04/28/21 04:00 Salvador Cells Not Reportable 04/28/21 04:00 Bite Cells Not Reportable 04/28/21 04:00 Crenated Cell Not Reportable 04/28/21 04:00 Elliptocytes Not Reportable 04/28/21 04:00 Acanthocytes (Spur) Not Reportable 04/28/21 04:00 Rouleaux Not Reportable 04/28/21 04:00 Hemoglobin C Crystals Not Reportable 04/28/21 04:00 Schistocytes Not Reportable 04/28/21 04:00 Malaria parasites Not Reportable 04/28/21 04:00 Herrera Bodies Not Reportable 04/28/21 04:00 Hem Pathologist Commnt No 04/28/21 04:00 PT 14.7 Sec. (12.2-14.9) 05/13/21 04:24 INR 1.04 (0.87-1.13) 05/13/21 04:24 APTT 36.6 Sec. (24.2-36.6) 04/28/21 05:00 Heparin Anti-Xa, Unfract Negative (Negative) 04/24/21 17:29 ABG pH 7.487 (7.320-7.450) H 05/02/21 04:34 POC ABG pCO2 35.3 mmHg (32.0-48.0) 05/02/21 04:34 ABG pCO2 31.6 mm Hg 04/21/21 15:47 POC ABG pO2 78.6 mmHg (83-108) L 05/02/21 04:34 ABG pO2 168.1 mm Hg (80.0-90.0) H 04/21/21 15:47 POC ABG HCO3 26.1 05/02/21 04:34 ABG HCO3 23.3 mmol/L (20.0-26.0) 04/21/21 15:47 ABG O2 Saturation 96.0 (0-100) 05/02/21 04:34 ABG O2 Content 12.7 (0.0-44) 04/21/21 15:47 POC ABG Base Excess 2.9 05/02/21 04:34 ABG Base Excess 0.3 mmol/L (-2.0-3.0) 04/21/21 15:47 ABG Hemoglobin 11.5 (12.0-17.5) L 05/02/21 04:34 ABG Oxyhemoglobin 95.1 (94-98) 05/02/21 04:34 ABG Carboxyhemoglobin 1.0 % (0.0-5.0) 04/21/21 15:47 ABG Methemoglobin 0.3 (0.0-1.5) 05/02/21 04:34 ABG Sodium 138.6 mmol/L (136.0-145.0) 05/02/21 04:34 ABG Potassium 3.4 mmol/L (3.40-4.50) 05/02/21 04:34 ABG Chloride 105.0 mmol/L (98-107) 05/02/21 04:34 ABG Glucose 122 mg/dL (65-95) H 05/02/21 04:34 VBG pH 7.397 (7.320-7.420) 04/20/21 17:10 Oxyhemoglobin 97.5 % (95.0-99.0) 04/21/21 15:47 Carboxyhemoglobin 0.6 (0.5-1.5) 05/02/21 04:34 FiO2 100 % 04/21/21 15:47 FiO2 % 40.0 05/02/21 04:34 Sodium 138 mmol/L (137-145) 05/14/21 04:43 Potassium 4.0 mmol/L (3.6-5.0) 05/14/21 04:43 Chloride 104.1 mmol/L (98-107) 05/14/21 04:43 Carbon Dioxide 23 mmol/L (22-30) 05/14/21 04:43 Anion Gap 15 mmol/L 05/14/21 04:43 BUN 29 mg/dL (7-17) H 05/14/21 04:43 Creatinine 1.2 mg/dL (0.6-1.2) 05/14/21 04:43 Estimated GFR 52 ml/min 05/14/21 04:43 BUN/Creatinine Ratio 24 % 05/14/21 04:43 Glucose 192 mg/dL (65-100) H 05/14/21 04:43 POC Glucose 215 mg/dL (70-105) H 05/14/21 10:59 Hemoglobin A1c 17.1 % (4-6) H 04/22/21 15:55 Lactic Acid 1.90 mmol/L (0.7-2.0) 04/20/21 19:56 Calcium 8.1 mg/dL (8.4-10.2) L 05/14/21 04:43 Phosphorus 3.20 mg/dL (2.5-4.5) 05/14/21 04:43 Magnesium 2.20 mg/dL (1.7-2.3) 05/14/21 04:43 Iron 62 ug/dL (37-170) 04/24/21 17:29 TIBC 285 mcg/dL (250-450) 04/24/21 17:29 % Saturation 21.75 % 04/24/21 17:29 Transferrin 112 mg/dl (192-382) L 04/24/21 17:29 Total Bilirubin 0.20 mg/dL (0.1-1.2) 05/03/21 04:00 Direct Bilirubin < 0.2 mg/dL (0-0.2) 04/29/21 04:00 Indirect Bilirubin 0.1 mg/dL 04/29/21 04:00 AST 53 units/L (5-40) H 05/03/21 04:00 ALT 55 units/L (7-56) 05/03/21 04:00 Alkaline Phosphatase 149 units/L (35-129) H 05/03/21 04:00 Ammonia 29.0 umol/L (25-60) 04/20/21 17:10 Total Creatine Kinase 1000 units/L (30-135) H 04/27/21 07:43 CK-MB (CK-2) 36.0 ng/mL (0.0-4.0) H 04/20/21 17:10 CK-MB (CK-2) Rel Index 0.9 (0-4) 04/20/21 17:10 Troponin T 0.021 ng/mL (0.00-0.029) 04/20/21 17:10 Serum Total Protein 5.5 g/dL (6.1-8.1) L 04/22/21 08:59 Total Protein 5.2 g/dL (6.3-8.2) L 05/03/21 04:00 Albumin 1.5 g/dL (3.9-5) L 05/03/21 04:00 Albumin/Globulin Ratio 0.4 % 05/03/21 04:00 Issww-0-Kwefbbvub 0.6 g/dL (0.2-0.3) H 04/22/21 08:59 Ggdmp-5-Jrboqguwl 1.0 g/dL (0.5-0.9) H 04/22/21 08:59 Beta Globulins 0.3 g/dL (0.2-0.5) 04/22/21 08:59 Gamma Globulins 0.6 g/dL (0.8-1.7) L 04/22/21 08:59 Abnorm Protein Band 1 see below 04/22/21 08:59 PEP Interpretation see below H 04/22/21 08:59 Triglycerides 80 mg/dL (2-149) 05/04/21 04:48 Cholesterol 90 mg/dL (50-199) 05/04/21 04:48 LDL Cholesterol Direct 51 mg/dL (50-130) 05/04/21 04:48 HDL Cholesterol 24 mg/dL (40-59) L 05/04/21 04:48 Cholesterol/HDL Ratio 3.75 % 05/04/21 04:48 Serotonin Release Assay See scanned result 04/24/21 17:29 TSH 6.040 mlU/mL (0.270-4.200) H 04/20/21 17:10 Free T4 0.93 ng/dL (0.76-1.46) 04/20/21 17:10 Arterial Blood Glucose 122 mg/dL (65-95) H 05/02/21 04:34 Arterial Blood Ionized Calcium 4.5 mg/dL (4.6-5.3) L 04/28/21 05:18 Urine Color Yellow (Yellow) 04/29/21 13:30 Urine Turbidity Turbid (Clear) 04/29/21 13:30 Urine pH 5.0 (5.0-7.0) 04/29/21 13:30 Ur Specific [place] 1.010 (1.003-1.030) 04/29/21 13:30 Urine Protein 100 mg/dl mg/dL (Negative) 04/29/21 13:30 Urine Glucose (UA) 150 mg/dL (Negative) 04/29/21 13:30 Urine Ketones Neg mg/dL (Negative) 04/29/21 13:30 Urine Blood Lg (Negative) 04/29/21 13:30 Urine Nitrite Neg (Negative) 04/29/21 13:30 Urine Bilirubin Neg (Negative) 04/29/21 13:30 Urine Urobilinogen < 2.0 mg/dL (<2.0) 04/29/21 13:30 Ur Leukocyte Esterase Lg (Negative) 04/29/21 13:30 Urine WBC (Auto) > 182.0 /HPF (0.0-6.0) H 04/29/21 13:30 Urine RBC (Auto) > 182.0 /HPF (0.0-6.0) 04/29/21 13:30 U Epithel Cells (Auto) 4.0 /HPF (0-13.0) 04/29/21 13:30 Urine WBC Clumps 3+ /HPF 04/29/21 13:30 Urine Mucus Few /HPF 04/29/21 13:30 Urine Yeast (Budding) 3+ /HPF 04/29/21 13:30 Urine Osmolality 446 Mosm/kg 04/21/21 08:01 Urine Total Volume 1700 ml 05/08/21 09:34 Urine Creatinine 56.0 mg/dL (0.1-20.0) H 05/08/21 09:34 Ur Creatinine 24 Hour 1.0 (0.8-2.8) 05/08/21 09:34 Urine Sodium 71 mmol/L 04/21/21 08:01 Urine Total Protein 12 mg/dL (5-11.8) H 04/21/21 08:01 CSF Appearance Clear 04/29/21 11:45 CSF Color Colorless 04/29/21 11:45 CSF WBC 14 /mm3 (1-10) 04/29/21 11:45 CSF RBC 324 /mm3 (0-0) 04/29/21 11:45 CSF Seg Neutrophils 50.0 % (0-6) 04/29/21 11:45 CSF Lymphocytes % 40.0 % (40-80) 04/29/21 11:45 CSF Reactive Lymphs Not Reportable 04/29/21 11:45 CSF Monocytes % 10.0 % (15-45) 04/29/21 11:45 CSF Eosinophils % Not Reportable 04/29/21 11:45 CSF Basophils Not Reportable 04/29/21 11:45 CSF Pathologist Review C 04/29/21 11:45 CSF Glucose 161 mg/dL 04/29/21 11:45 CSF Total Protein 51 mg/dL 04/29/21 11:45 Plasma/Serum Alcohol < 0.01 % (0-0.07) 04/20/21 17:10 Heparin-induced Plt Ab Negative (Negative) 04/24/21 17:29 UF Heparin High Dose 1 % Release 04/24/21 17:29 EFE UFH Low Dose 0.1 0 % Release 01/02/22 17:29 EFE UFH Low Dose 0.5 0 % Release 04/24/21 17:29 Coronavirus (PCR) Negative (Negative) 04/21/21 Unknown Hepatitis A IgM Ab Non-reactive (NonReactive) 04/27/21 12:49 Hep Bs Antigen Nonreactive (Negative) 04/27/21 12:49 Hep B Core IgM Ab Non-reactive (NonReactive) 04/27/21 12:49 Hepatitis C Antibody Non-reactive (NonReactive) 04/27/21 12:49 Blood Type O POSITIVE 05/02/21 12:00 Antibody Screen Negative 05/02/21 12:00 Crossmatch See Detail 05/02/21 12:00 Microbiology: Microbiology 05/02/21 Unknown Urine,Catheterized - Indwelling Catheter Urine Culture - Final Roselyn Tropicalis Luther/IV: Voiding Method Indwelling Catheter Active Medications - Current Medications Current Medications: Generic Name Dose Route Start Last Admin Trade Name Freq PRN Reason Stop Dose Admin Acetaminophen 650 mg 04/20/21 21:31 05/14/21 09:50 Acetaminophen 325 Mg Tab PO 650 mg Q4H PRN Administration Pain MILD(1-3)/Fever >100.5/TURCIOS Albumin Human 25 gm 05/06/21 16:06 05/06/21 16:21 Albumin Human 25% (25 Gm/100 Ml) Inj IV 25 gm MITCH PRN Administration Hypotension Albuterol 2.5 mg 04/22/21 14:49 04/23/21 15:18 Albuterol 2.5 Mg/3 Ml Nebu IH 2.5 mg Q4HRT PRN Administration Shortness Of Breath Amlodipine Besylate 5 mg 05/12/21 10:00 05/14/21 09:49 Amlodipine 5 Mg Tab PO 5 mg QDAY AZIZA Administration Lipase/Protease/Amylase 1 each 04/25/21 14:13 Lipase 10,500/Protease 25,000/Amylase 43,750 (Units) Dr Vasquez FEEDTUBE PRN PRN For Clogged Feeding Tube Aspirin 81 mg 05/04/21 10:00 05/14/21 09:50 Aspirin 81 Mg Tab Chew FEEDTUBE 81 mg QDAY AZIZA Administration Atorvastatin Calcium 40 mg 05/04/21 22:00 05/13/21 21:39 Atorvastatin 40 Mg Tab FEEDTUBE 40 mg QHS AZIZA Administration Dextrose 50 ml 04/24/21 11:36 Dextrose 50% In Water (25gm) 50 Ml Syringe IV Q30MIN PRN Hypoglycemia Protocol Famotidine 10 mg 04/27/21 10:00 05/14/21 09:50 Famotidine 10 Mg Tab FEEDTUBE 10 mg BID AZIZA Administration Heparin Sodium (Porcine) 5,000 unit 05/10/21 22:00 05/14/21 09:50 Heparin 5,000 Unit/1 Ml Vial SUB-Q 5,000 unit Q12HR AZIZA Administration Hydrophilic Ointment 1 applic 04/26/21 11:16 Lip Therapy Vaseline TP Q2HR PRN Dry Lips Sodium Chloride 1,000 mls @ 100 mls/hr 05/14/21 08:30 05/14/21 09:53 Nacl 0.9% 1000 Ml IV 05/14/21 18:29 100 mls/hr DIRECT AZIZA Administration Insulin Human Lispro 0 unit 04/25/21 18:00 05/14/21 12:05 Insulin Lispro 100 Unit/Ml SUB-Q 4 unit Q6HR AZIZA Administration Protocol Labetalol HCl 20 mg 05/12/21 11:34 05/12/21 21:35 Labetalol 20 Mg/4 Ml Inj IV 20 mg Q4H PRN Administration SBP >/=170 Levothyroxine Sodium 50 mcg 05/03/21 06:00 05/14/21 05:27 Levothyroxine 50 Mcg Tab PO 50 mcg DAILY@0600 AZIZA Administration Lorazepam 1 mg 04/26/21 11:15 05/12/21 16:27 Lorazepam 2 Mg/Ml Vial IV 1 mg Q4H PRN Administration Sedation Metoclopramide HCl 5 mg 04/20/21 21:31 Metoclopramide 10 Mg/2 Ml Inj IV Q6H PRN Nausea And Vomiting Multi-Ingred Cream/Lotion/Oil/Oint 1 applic 04/26/21 11:16 Mineral Oil/Petrolatum, White Ophth Oint 3.5 Gm OU Q4HR PRN Dry Eye(s) Ondansetron HCl 4 mg 04/20/21 21:31 Ondansetron 4 Mg/2 Ml Inj IV Q8H PRN Nausea And Vomiting Senna/Docusate Sodium 1 tab 04/26/21 22:00 05/14/21 09:50 Sennosides/Docusate Sodium 8.6/50 Mg Tab FEEDTUBE 1 tab BID AZIZA Administration Simple Syrup 15 ml 04/25/21 14:13 Simple Syrup 15 Ml FEEDTUBE PRN PRN Hypoglycemia Simple Syrup 30 ml 04/25/21 14:13 Simple Syrup 15 Ml FEEDTUBE PRN PRN Hypoglycemia Sodium Bicarbonate 325 mg 04/25/21 14:13 04/27/21 13:00 Sodium Bicarbonate 325 Mg Tab FEEDTUBE 325 mg PRN PRN Administration For Clogged Feeding Tube Sodium Bicarbonate 1,300 mg 04/27/21 14:00 05/14/21 13:07 Sodium Bicarbonate 650 Mg Tab PO 1,300 mg TID AZIZA Administration Sodium Chloride 10 ml 04/20/21 22:00 05/14/21 09:51 Sodium Chloride 0.9% 10 Ml Flush Syringe IV 10 ml BID AZIZA Administration Sodium Chloride 10 ml 04/20/21 21:31 Sodium Chloride 0.9% 10 Ml Flush Syringe IV PRN PRN LINE FLUSH Nutrition/Malnutrition Assess - Dietary Evaluation Nutrition/Malnutrition Findings: Nutrition Notes Start: 04/21/21 12:15 Freq: Status: Active Protocol: Document 05/13/21 15:36 NHALL (Rec: 05/13/21 15:47 OKALL [id number]) Nutrition Notes Initial or Follow up Reassessment Current Diagnosis Sepsis,Respiratory Failure, Stroke Other Pertinent Diagnosis Acute metabolic encephalopathy , pneu, UTI Current Diet NPO Labs/Tests BUN 30 Mg 1.6 Pertinent Medications Mag sulfate x 1 dose Height 5 ft 2 in Weight 72.4 kg [place] Body Weight (kg) 50.00 BMI 29.2 Weight Status Overweight Subjective/Other Information Pt remains on vent support. TF off; pt scheduled for trach and PEG placement today. Unable to place PEG sec to suspected anatomical abnormality. Interventional radiology consulted for PEG placement. Per nephrology, SYED resolving; no indication for HD as VasCath has been removed. Minimum of two criteria No #1 Nutrition Diagnosis Inadequate oral intake Diagnosis Progress(for reassessment Continues documentation) Is patient on ventilator? Yes Is Patient Ambulatory and/or Out of Bed No [facility] [phone] Calculation Used for Recommendations [facility] Additional Notes Pro needs 1.2-2g/k-145g/ day Fluid needs 1ml/kcal Nutrition Intervention Nutrition Support: When feasible, resume TF, but change formula to Glucerna 1.2 at 50ml/hr with 80ml water flush q4h. Goal #1 Resume TF to meet nutrient needs Follow-Up By: 05/16/21 Additional Comments F/U: PEG placement, TF restart with Glucerna 1.2, vent status
[2021-05-06] MEDS: INSULIN LISPRO 100 UNIT/ML SUB-Q SCH ×4 (00:15→19:46)
[2021-05-06] MEDS: SENNOSIDES/DOCUSATE SODIUM 8.6/50 MG TAB FEEDTUBE SCH ×3 (01:10→21:46)
[2021-05-06 05:07] LABS: Hematocrit 25.4 % (30.3-42.9); Hemoglobin 8.3 gm/dl (10.1-14.3); Mean Corpuscular HGB Conc 33 % (30-34); Mean Corpuscular Volume 84 fl (79-97); Platelet Count 269 K/mm3 (140-440); Red Blood Count 3.03 M/mm3 (3.65-5.03); Red Cell Distribution Width 15.2 % (13.2-15.2)
[2021-05-06 05:29] LABS: Calcium 7.8 mg/dL (8.4-10.2)
[2021-05-06] MEDS: LEVOTHYROXINE 50 MCG TAB PO SCH (05:37)
[2021-05-06] MEDS: MIDODRINE 5 MG TAB PO SCH ×3 (08:58→20:24)
[2021-05-06] MEDS: SODIUM BICARBONATE 650 MG TAB PO SCH ×3 (08:59→20:26)
--- NOTE | 2021-05-06 09:11 | Progress Note ---
Assessment and Plan (1) Acute metabolic encephalopathy (2) Diabetic hyperosmolar non-ketotic state 3) SYED (acute kidney injury) (4) Dehydration (5) Hypernatremia (6) Rhabdomyolysis (7) Hypernatremia 8) GERD (gastroesophageal reflux disease) (9) Metabolic acidosis (10) Leukocytosis HD today for clearance and volume removal will assess dialysis needs daily Intubated on Vent. renally dose meds Strict I&O In ICU Subjective Date of service: 05/06/21 Principal diagnosis: Acute respiratory failure Interval history: in ICU, intubated. Objective - Vital Signs Vital signs: Vital Signs - 12hr 05/05/21 05/05/21 05/05/21 21:15 21:30 21:45 Temperature Pulse Rate 90 77 95 H Pulse Rate [ From Monitor] Respiratory 20 28 H 19 Rate Blood Pressure 129/64 131/57 147/81 O2 Sat by Pulse 98 98 98 Oximetry 05/05/21 05/05/21 05/05/21 22:00 22:16 22:30 Temperature Pulse Rate 90 89 85 Pulse Rate [ From Monitor] Respiratory 26 H 14 22 Rate Blood Pressure 135/69 136/76 125/70 O2 Sat by Pulse 98 97 98 Oximetry 05/05/21 05/05/21 05/05/21 22:45 23:00 23:06 Temperature Pulse Rate 80 97 H 85 Pulse Rate [ From Monitor] Respiratory 20 14 15 Rate Blood Pressure 123/63 108/87 108/87 O2 Sat by Pulse 94 100 98 Oximetry 05/05/21 05/05/21 05/05/21 23:16 23:30 23:45 Temperature Pulse Rate 82 77 73 Pulse Rate [ From Monitor] Respiratory 24 18 14 Rate Blood Pressure 128/49 117/46 112/45 O2 Sat by Pulse 96 97 95 Oximetry 05/06/21 05/06/21 05/06/21 00:00 00:15 00:30 Temperature 97.7 F Pulse Rate 75 86 87 Pulse Rate [ 87 From Monitor] Respiratory 23 17 17 Rate Blood Pressure 94/47 119/53 122/54 O2 Sat by Pulse 97 96 97 Oximetry 05/06/21 05/06/21 05/06/21 00:36 00:40 00:45 Temperature Pulse Rate 88 87 89 Pulse Rate [ From Monitor] Respiratory 15 23 25 H Rate Blood Pressure 122/54 122/54 127/59 O2 Sat by Pulse 95 96 96 Oximetry 05/06/21 05/06/21 05/06/21 00:50 00:56 01:00 Temperature Pulse Rate 85 89 81 Pulse Rate [ From Monitor] Respiratory 24 16 24 Rate Blood Pressure 127/59 127/59 116/48 O2 Sat by Pulse 96 96 97 Oximetry 05/06/21 05/06/21 05/06/21 01:06 01:10 01:16 Temperature Pulse Rate 88 86 87 Pulse Rate [ From Monitor] Respiratory 20 30 H 20 Rate Blood Pressure 116/48 116/48 144/63 O2 Sat by Pulse 97 95 98 Oximetry 05/06/21 05/06/21 05/06/21 01:20 01:26 01:30 Temperature Pulse Rate 86 75 76 Pulse Rate [ From Monitor] Respiratory 16 15 16 Rate Blood Pressure 144/63 144/63 94/47 O2 Sat by Pulse 96 95 95 Oximetry 05/06/21 05/06/21 05/06/21 01:36 01:40 01:45 Temperature Pulse Rate 75 79 74 Pulse Rate [ From Monitor] Respiratory 14 14 14 Rate Blood Pressure 94/47 94/47 91/42 O2 Sat by Pulse 95 97 94 Oximetry 05/06/21 05/06/21 05/06/21 01:50 01:56 02:00 Temperature Pulse Rate 73 73 72 Pulse Rate [ From Monitor] Respiratory 14 14 14 Rate Blood Pressure 91/42 91/42 86/38 O2 Sat by Pulse 95 95 95 Oximetry 05/06/21 05/06/21 05/06/21 02:06 02:10 02:15 Temperature Pulse Rate 72 72 73 Pulse Rate [ From Monitor] Respiratory 14 14 14 Rate Blood Pressure 86/38 86/38 86/39 O2 Sat by Pulse 95 95 95 Oximetry 05/06/21 05/06/21 05/06/21 02:20 02:26 02:30 Temperature Pulse Rate 72 85 90 Pulse Rate [ From Monitor] Respiratory 14 16 23 Rate Blood Pressure 86/39 125/70 133/60 O2 Sat by Pulse 95 98 97 Oximetry 05/06/21 05/06/21 05/06/21 02:36 02:40 02:45 Temperature Pulse Rate 89 89 83 Pulse Rate [ From Monitor] Respiratory 24 13 20 Rate Blood Pressure 133/60 133/60 132/58 O2 Sat by Pulse 97 95 96 Oximetry 05/06/21 05/06/21 05/06/21 02:50 02:56 03:00 Temperature Pulse Rate 83 85 79 Pulse Rate [ From Monitor] Respiratory 25 H 21 15 Rate Blood Pressure 132/58 132/58 119/55 O2 Sat by Pulse 96 95 96 Oximetry 05/06/21 05/06/21 05/06/21 03:06 03:10 03:15 Temperature Pulse Rate 86 83 78 Pulse Rate [ From Monitor] Respiratory 23 21 14 Rate Blood Pressure 119/55 119/55 119/59 O2 Sat by Pulse 95 95 96 Oximetry 05/06/21 05/06/21 05/06/21 03:20 03:26 03:30 Temperature Pulse Rate 85 83 87 Pulse Rate [ From Monitor] Respiratory 20 19 20 Rate Blood Pressure 119/59 119/59 133/64 O2 Sat by Pulse 96 96 96 Oximetry 05/06/21 05/06/21 05/06/21 03:36 03:40 03:45 Temperature Pulse Rate 77 75 84 Pulse Rate [ From Monitor] Respiratory 17 14 25 H Rate Blood Pressure 133/64 133/64 125/62 O2 Sat by Pulse 96 95 96 Oximetry 05/06/21 05/06/21 05/06/21 03:50 03:56 04:00 Temperature 98.3 F Pulse Rate 78 85 85 Pulse Rate [ 82 From Monitor] Respiratory 14 24 22 Rate Blood Pressure 125/62 125/62 135/61 O2 Sat by Pulse 96 95 95 Oximetry 05/06/21 05/06/21 05/06/21 04:06 04:10 04:15 Temperature Pulse Rate 83 76 83 Pulse Rate [ From Monitor] Respiratory 20 16 25 H Rate Blood Pressure 135/61 135/61 114/60 O2 Sat by Pulse 96 94 95 Oximetry 05/06/21 05/06/21 05/06/21 04:20 04:26 04:30 Temperature Pulse Rate 75 76 84 Pulse Rate [ From Monitor] Respiratory 14 14 21 Rate Blood Pressure 114/60 114/60 118/61 O2 Sat by Pulse 94 95 96 Oximetry 05/06/21 05/06/21 05/06/21 04:36 04:40 04:45 Temperature Pulse Rate 83 77 81 Pulse Rate [ From Monitor] Respiratory 14 14 17 Rate Blood Pressure 118/61 118/61 120/56 O2 Sat by Pulse 95 96 95 Oximetry 01/05/06/21 05/06/21 04:50 04:56 05:00 Temperature Pulse Rate 81 81 82 Pulse Rate [ From Monitor] Respiratory 25 H 21 22 Rate Blood Pressure 120/56 120/56 122/63 O2 Sat by Pulse 96 97 96 Oximetry 05/06/21 05/06/21 05/06/21 05:06 05:10 05:15 Temperature Pulse Rate 80 81 79 Pulse Rate [ From Monitor] Respiratory 20 21 14 Rate Blood Pressure 122/63 122/63 115/50 O2 Sat by Pulse 96 96 96 Oximetry 05/06/21 05/06/21 05/06/21 05:20 05:26 05:30 Temperature Pulse Rate 78 86 80 Pulse Rate [ From Monitor] Respiratory 14 19 20 Rate Blood Pressure 115/50 115/50 119/65 O2 Sat by Pulse 95 97 96 Oximetry 05/06/21 05/06/21 05/06/21 05:36 05:40 05:41 Temperature Pulse Rate 81 84 77 Pulse Rate [ From Monitor] Respiratory 20 23 Rate Blood Pressure 119/65 119/65 118/61 O2 Sat by Pulse 96 97 96 Oximetry 05/06/21 05/06/21 05/06/21 05:45 05:50 05:56 Temperature Pulse Rate 78 83 76 Pulse Rate [ From Monitor] Respiratory 20 18 14 Rate Blood Pressure 115/52 115/52 115/52 O2 Sat by Pulse 95 96 96 Oximetry 05/06/21 05/06/21 05/06/21 06:00 06:06 08:00 Temperature 98 F Pulse Rate 75 79 Pulse Rate [ From Monitor] Respiratory 14 15 Rate Blood Pressure 102/50 102/50 O2 Sat by Pulse 96 96 Oximetry - Lab 05/06/21 04:27 05/06/21 04:00 Most recent lab results ABG pH 7.487 (7.320-7.450) H 05/02/21 04:34 ABG pCO2 31.6 mm Hg 04/21/21 15:47 ABG pO2 168.1 mm Hg (80.0-90.0) H 04/21/21 15:47 ABG HCO3 23.3 mmol/L (20.0-26.0) 04/21/21 15:47 ABG O2 Saturation 96.0 (0-100) 05/02/21 04:34 Calcium 7.8 mg/dL (8.4-10.2) L 05/06/21 04:00 Phosphorus 4.60 mg/dL (2.5-4.5) H 05/06/21 04:00 Magnesium 1.70 mg/dL (1.7-2.3) 05/06/21 04:00 Urine Creatinine 44.3 mg/dL (0.1-20.0) H 04/21/21 08:01 Urine Sodium 71 mmol/L 04/21/21 08:01 Urine Total Protein 12 mg/dL (5-11.8) H 04/21/21 08:01 Medications & Allergies - Medications Allergies/Adverse Reactions: Allergies No Known Allergies Allergy (Unverified 04/20/21 14:35) Active Medications: Generic Name Dose Route Start Last Admin Trade Name Freq PRN Reason Stop Dose Admin Acetaminophen 650 mg 04/20/21 21:31 05/01/21 18:15 Acetaminophen 325 Mg Tab PO 650 mg Q4H PRN Administration Pain MILD(1-3)/Fever >100.5/TURCIOS Albuterol 2.5 mg 04/22/21 14:49 04/23/21 15:18 Albuterol 2.5 Mg/3 Ml Nebu IH 2.5 mg Q4HRT PRN Administration Shortness Of Breath Lipase/Protease/Amylase 1 each 04/25/21 14:13 Lipase 10,500/Protease 25,000/Amylase 43,750 (Units) Dr Vasquez FEEDTUBE PRN PRN For Clogged Feeding Tube Aspirin 81 mg 05/04/21 10:00 05/05/21 15:49 Aspirin 81 Mg Tab Chew FEEDTUBE 81 mg QDAY AZIZA Administration Atorvastatin Calcium 40 mg 05/04/21 22:00 05/05/21 21:30 Atorvastatin 40 Mg Tab FEEDTUBE 40 mg QHS AZIZA Administration Dextrose 50 ml 04/24/21 11:36 Dextrose 50% In Water (25gm) 50 Ml Syringe IV Q30MIN PRN Hypoglycemia Protocol Famotidine 10 mg 04/27/21 10:00 05/05/21 21:30 Famotidine 10 Mg Tab FEEDTUBE 10 mg BID AZIZA Administration Hydralazine HCl 10 mg 04/24/21 21:22 Hydralazine 20 Mg/1 Ml Inj IV Q4HR PRN elevated BP Hydrophilic Ointment 1 applic 04/26/21 11:16 Lip Therapy Vaseline TP Q2HR PRN Dry Lips NORepinephrine/NS 8 MG-250 ML 8 mg in 250 mls @ 3.75 mls/hr 04/26/21 16:00 05/04/21 21:34 Norepinephrine/Ns 8 Mg-250 Ml (Double Conc) IV 0 mcg/min TITRATE AZIZA 0 mls/hr Titration Protocol 2 MCG/MIN MEROPENEM/NS 1 GRAM/100 ML 1 gram in 100 mls @ 100 mls/hr 05/03/21 15:00 05/05/21 15:50 Merrem/Ns 1 Gram/100 Ml IV 100 mls/hr 1500 [facility] Administration Protocol Sodium Chloride 100 mls @ 999 mls/hr 05/04/21 11:30 Nacl 0.9% IV MITCH PRN Hypotension Fluconazole 200 mg in 100 mls @ 100 mls/hr 05/05/21 15:00 05/05/21 15:50 Diflucan IV 05/10/21 14:59 100 mls/hr Q24H AZIZA Administration Protocol Insulin Human Lispro 0 unit 04/25/21 18:00 05/06/21 05:36 Insulin Lispro 100 Unit/Ml SUB-Q Not Given Q6HR [facility] Protocol Levothyroxine Sodium 50 mcg 05/03/21 06:00 05/06/21 05:37 Levothyroxine 50 Mcg Tab PO 50 mcg DAILY@0600 [facility] Administration Lorazepam 1 mg 04/26/21 11:15 04/30/21 23:00 Lorazepam 2 Mg/Ml Vial IV 1 mg Q4H PRN Administration Sedation Metoclopramide HCl 5 mg 04/20/21 21:31 Metoclopramide 10 Mg/2 Ml Inj IV Q6H PRN Nausea And Vomiting Midodrine 10 mg 05/04/21 14:00 05/05/21 21:30 Midodrine 5 Mg Tab PO 10 mg TID AZIZA Administration Multi-Ingred Cream/Lotion/Oil/Oint 1 applic 04/26/21 11:16 Mineral Oil/Petrolatum, White Ophth Oint 3.5 Gm OU Q4HR PRN Dry Eye(s) Ondansetron HCl 4 mg 04/20/21 21:31 Ondansetron 4 Mg/2 Ml Inj IV Q8H PRN Nausea And Vomiting Senna/Docusate Sodium 1 tab 04/26/21 22:00 05/06/21 01:10 Sennosides/Docusate Sodium 8.6/50 Mg Tab FEEDTUBE Not Given BID AZIZA Simple Syrup 15 ml 04/25/21 14:13 Simple Syrup 15 Ml FEEDTUBE PRN PRN Hypoglycemia Simple Syrup 30 ml 04/25/21 14:13 Simple Syrup 15 Ml FEEDTUBE PRN PRN Hypoglycemia Sodium Bicarbonate 325 mg 04/25/21 14:13 04/27/21 13:00 Sodium Bicarbonate 325 Mg Tab FEEDTUBE 325 mg PRN PRN Administration For Clogged Feeding Tube Sodium Bicarbonate 1,300 mg 04/27/21 14:00 05/05/21 21:30 Sodium Bicarbonate 650 Mg Tab PO 1,300 mg TID AZIZA Administration Sodium Chloride 10 ml 04/20/21 22:00 05/05/21 21:30 Sodium Chloride 0.9% 10 Ml Flush Syringe IV 10 ml BID AZIZA Administration Sodium Chloride 10 ml 04/20/21 21:31 Sodium Chloride 0.9% 10 Ml Flush Syringe IV PRN PRN LINE FLUSH
[2021-05-06] MEDS: FAMOTIDINE 10 MG TAB FEEDTUBE SCH ×2 (09:19→21:46)
[2021-05-06] MEDS: ASPIRIN 81 MG TAB CHEW FEEDTUBE SCH (09:19)
--- NOTE | 2021-05-06 12:11 | Progress Note ---
Assessment and Plan Assessment and Plan Assessment and plan: This is a 80-year-old female shelter resident with GERD, hypothyroidism, hyperlipidemia, schizophrenia and dementia admitted with hypothermia, hyponatrem ia, hypokalemia, lactic acidosis, acute kidney injury, rhabdomyolysis and hyperosmolar nonketotic state. 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 -- source of emboli is not found -EEG not done -LINCOLN pending -start ASA 81 mg and lipitor 40 mg -LDL is #51 -cardiac monitering R/O AF -SQ heparine # Hypotension -Vasopressor support with Levophed -MAP goal above 65 -Blood pressure monitoring per protocol -Home amlodipine 10 mg on hold # Acute hypoxic respiratory failure -s/p Bipap and ventimask -s/p bronchoscopy on 04/26 -Intubated 04/26 with 7.5 oett at 22 lips -Repeat CXR shows increased interstitial prominence of densities in bilateral lungs # Hypoalbuminemia, transaminitis -Presented with transaminitis -Trend LFTs # Severe hypernatremia (resolved), hyperchloremia (resolved), acute kidney injury likely secondary to vasomotor nephropathy, urinary retention, rhabdomyolysis (resolved) -HD initiated 04/27 -Avoid nephrotoxic medications -Trend BMP, CK -Renally dose medications -renal US WNL per read # Sepsis likely 2/2 UTI and PNA -COVID-19 PCR negative -04/26/2021 sputum culture: Roselyn nonalbicans -04/29/2021 UA showed significant pyuria. -Lumbar puncture with CSF showing 14 WBC, 324 RBC, glucose 161, protein 51. -Abx per ID: IV meropenem, renally adjusted -Exchange Luther, urine culture ordered -Trend WBC and fever curve -f/u cultures s/p HHNK, h/o hypothyroidism -Restart home levothyroxine (50 mcg q day) -s/p Insulin drip x2 -SSI, long acting insulin (adjust as needed) -TSH 6.04, T4 0.93 -Avoid hypoglycemia # Leukocytosis, thrombocytopenia (resolved), anemia -HIT (-) -Trend CBC -Transfuse to hemoglobin less than 7 -hbg 6.9 -transfuse one unit PRBC -SCD to bilateral lower extremities while in bed -BUE dopplar US negative for DVT PLAN 1- Consider LINCOLN talked to cardiology twice 2- cardiac monitering r/o AF paroxysmal 3- ASA 81 mg and Lipitor 40 mg 4- EEG when possible 5- Avoid sedation 6- avoid Hypotension will follow as needed Subjective Date of service: 05/06/21 Principal diagnosis: Acute respiratory failure Interval history: she is more interactive, move upper limbs to stimulation not follow command , open eyes to calling her name ,move left side with right side weakness MRA brain and neck is remarkable for intracranial ICA at cavernous portion stenosis -LINCOLN is pending she is off sedation blcs negative Bun/Cr#58/3.4--43/2.7 EEG still pending wbs#14.3 LDL#51 Objective - Vital Sign Vital Signs - 12hr 05/06/21 05/06/21 05/06/21 00:15 00:30 00:36 Temperature Pulse Rate 86 87 88 Pulse Rate [ From Monitor] Respiratory 17 17 15 Rate Blood Pressure 119/53 122/54 122/54 O2 Sat by Pulse 96 97 95 Oximetry 05/06/21 05/06/21 05/06/21 00:40 00:45 00:50 Temperature Pulse Rate 87 89 85 Pulse Rate [ From Monitor] Respiratory 23 25 H 24 Rate Blood Pressure 122/54 127/59 127/59 O2 Sat by Pulse 96 96 96 Oximetry 05/06/21 05/06/21 05/06/21 00:56 01:00 01:06 Temperature Pulse Rate 89 81 88 Pulse Rate [ From Monitor] Respiratory 16 24 20 Rate Blood Pressure 127/59 116/48 116/48 O2 Sat by Pulse 96 97 97 Oximetry 05/06/21 05/06/21 05/06/21 01:10 01:16 01:20 Temperature Pulse Rate 86 87 86 Pulse Rate [ From Monitor] Respiratory 30 H 20 16 Rate Blood Pressure 116/48 144/63 144/63 O2 Sat by Pulse 95 98 96 Oximetry 05/06/21 05/06/21 05/06/21 01:26 01:30 01:36 Temperature Pulse Rate 75 76 75 Pulse Rate [ From Monitor] Respiratory 15 16 14 Rate Blood Pressure 144/63 94/47 94/47 O2 Sat by Pulse 95 95 95 Oximetry 05/06/21 05/06/21 05/06/21 01:40 01:45 01:50 Temperature Pulse Rate 79 74 73 Pulse Rate [ From Monitor] Respiratory 14 14 14 Rate Blood Pressure 94/47 91/42 91/42 O2 Sat by Pulse 97 94 95 Oximetry 05/06/21 05/06/21 05/06/21 01:56 02:00 02:06 Temperature Pulse Rate 73 72 72 Pulse Rate [ From Monitor] Respiratory 14 14 14 Rate Blood Pressure 91/42 86/38 86/38 O2 Sat by Pulse 95 95 95 Oximetry 05/06/21 05/06/21 05/06/21 02:10 02:15 02:20 Temperature Pulse Rate 72 73 72 Pulse Rate [ From Monitor] Respiratory 14 14 14 Rate Blood Pressure 86/38 86/39 86/39 O2 Sat by Pulse 95 95 95 Oximetry 05/06/21 05/06/21 05/06/21 02:26 02:30 02:36 Temperature Pulse Rate 85 90 89 Pulse Rate [ From Monitor] Respiratory 16 23 24 Rate Blood Pressure 125/70 133/60 133/60 O2 Sat by Pulse 98 97 97 Oximetry 05/06/21 05/06/21 05/06/21 02:40 02:45 02:50 Temperature Pulse Rate 89 83 83 Pulse Rate [ From Monitor] Respiratory 13 20 25 H Rate Blood Pressure 133/60 132/58 132/58 O2 Sat by Pulse 95 96 96 Oximetry 05/06/21 05/06/21 05/06/21 02:56 03:00 03:06 Temperature Pulse Rate 85 79 86 Pulse Rate [ From Monitor] Respiratory 21 15 23 Rate Blood Pressure 132/58 119/55 119/55 O2 Sat by Pulse 95 96 95 Oximetry 05/06/21 05/06/21 05/06/21 03:10 03:15 03:20 Temperature Pulse Rate 83 78 85 Pulse Rate [ From Monitor] Respiratory 21 14 20 Rate Blood Pressure 119/55 119/59 119/59 O2 Sat by Pulse 95 96 96 Oximetry 05/06/21 05/06/21 05/06/21 03:26 03:30 03:36 Temperature Pulse Rate 83 87 77 Pulse Rate [ From Monitor] Respiratory 19 20 17 Rate Blood Pressure 119/59 133/64 133/64 O2 Sat by Pulse 96 96 96 Oximetry 05/06/21 05/06/21 05/06/21 03:40 03:45 03:50 Temperature Pulse Rate 75 84 78 Pulse Rate [ From Monitor] Respiratory 14 25 H 14 Rate Blood Pressure 133/64 125/62 125/62 O2 Sat by Pulse 95 96 96 Oximetry 05/06/21 05/06/21 05/06/21 03:56 04:00 04:06 Temperature 98.3 F Pulse Rate 85 85 83 Pulse Rate [ 82 From Monitor] Respiratory 24 22 20 Rate Blood Pressure 125/62 135/61 135/61 O2 Sat by Pulse 95 95 96 Oximetry 05/06/21 05/06/21 05/06/21 04:10 04:15 04:20 Temperature Pulse Rate 76 83 75 Pulse Rate [ From Monitor] Respiratory 16 25 H 14 Rate Blood Pressure 135/61 114/60 114/60 O2 Sat by Pulse 94 95 94 Oximetry 05/06/21 05/06/21 05/06/21 04:26 04:30 04:36 Temperature Pulse Rate 76 84 83 Pulse Rate [ From Monitor] Respiratory 14 21 14 Rate Blood Pressure 114/60 118/61 118/61 O2 Sat by Pulse 95 96 95 Oximetry 05/06/21 05/06/21 05/06/21 04:40 04:45 04:50 Temperature Pulse Rate 77 81 81 Pulse Rate [ From Monitor] Respiratory 14 17 25 H Rate Blood Pressure 118/61 120/56 120/56 O2 Sat by Pulse 96 95 96 Oximetry 05/06/21 05/06/21 05/06/21 04:56 05:00 05:06 Temperature Pulse Rate 81 82 80 Pulse Rate [ From Monitor] Respiratory 21 22 20 Rate Blood Pressure 120/56 122/63 122/63 O2 Sat by Pulse 97 96 96 Oximetry 05/06/21 05/06/21 05/06/21 05:10 05:15 05:20 Temperature Pulse Rate 81 79 78 Pulse Rate [ From Monitor] Respiratory 21 14 14 Rate Blood Pressure 122/63 115/50 115/50 O2 Sat by Pulse 96 96 95 Oximetry 05/06/21 05/06/21 05/06/21 05:26 05:30 05:36 Temperature Pulse Rate 86 80 81 Pulse Rate [ From Monitor] Respiratory 19 20 20 Rate Blood Pressure 115/50 119/65 119/65 O2 Sat by Pulse 97 96 96 Oximetry 05/06/21 05/06/21 05/06/21 05:40 05:41 05:45 Temperature Pulse Rate 84 77 78 Pulse Rate [ From Monitor] Respiratory 23 20 Rate Blood Pressure 119/65 118/61 115/52 O2 Sat by Pulse 97 96 95 Oximetry 05/06/21 05/06/21 05/06/21 05:50 05:56 06:00 Temperature Pulse Rate 83 76 75 Pulse Rate [ From Monitor] Respiratory 18 14 14 Rate Blood Pressure 115/52 115/52 102/50 O2 Sat by Pulse 96 96 96 Oximetry 05/06/21 05/06/21 05/06/21 06:06 06:30 07:00 Temperature Pulse Rate 79 78 84 Pulse Rate [ From Monitor] Respiratory 15 15 22 Rate Blood Pressure 102/50 116/55 113/46 O2 Sat by Pulse 96 97 98 Oximetry 05/06/21 05/06/21 05/06/21 07:30 08:00 08:30 Temperature 98 F Pulse Rate 88 73 72 Pulse Rate [ 84 From Monitor] Respiratory 22 14 14 Rate Blood Pressure 124/67 124/68 102/49 O2 Sat by Pulse 98 99 98 Oximetry 05/06/21 05/06/21 05/06/21 09:00 09:30 10:00 Temperature Pulse Rate 83 72 67 Pulse Rate [ From Monitor] Respiratory 15 14 14 Rate Blood Pressure 118/58 112/57 120/56 O2 Sat by Pulse 98 98 98 Oximetry 05/06/21 05/06/21 10:30 11:00 Temperature Pulse Rate 74 73 Pulse Rate [ From Monitor] Respiratory 18 16 Rate Blood Pressure 133/62 132/64 O2 Sat by Pulse 98 99 Oximetry - General Apperance Constitutional: uncomfortable - EENT EENT: PERRL, mucous membranes moist - Respiratory Respiratory: lungs clear, rhonchi - Cardiovascular Cardiovascular: regular rate, normal S1, normal S2 Extremities: no peripheral edema bilat, no clubbing, cyanosis - Gastrointestinal Gastrointestinal: normoactive bowel sounds - Integumentary Integumentary: normal - Neurologic Cranial nerve examination: PERRL, EOMI, other (intubated off sedation) Detailed motor examination: other (move left side upper> lower , no movment on right side,) - Psychiatric Psychiatric: other (awak more interactive squeeze hand on left side to order.) - Laboratory Findings CBC and BMP: 05/06/21 04:27 05/06/21 04:00 Abnormal Lab Findings: Abnormal Labs 04/20/21 04/20/21 04/20/21 17:10 17:10 17:10 WBC 17.4 H RBC 5.19 H Hgb Hct 46.8 H MCH 27 L RDW 17.2 H Plt Count Seg Neuts % (Manual) 98.0 H Lymphocytes % (Manual) 2.0 L Nucleated RBC % 1.0 H Seg Neutrophils # Man 17.1 H Lymphocytes # (Manual) 0.3 L PT ABG pH POC ABG pCO2 POC ABG pO2 ABG pO2 ABG O2 Saturation ABG Base Excess ABG Hemoglobin ABG Oxyhemoglobin ABG Potassium ABG Chloride ABG Glucose Oxyhemoglobin Carboxyhemoglobin Sodium 173 H* Potassium Chloride 132.9 H Carbon Dioxide 17 L BUN 120 H Creatinine 4.2 H Glucose 762 H* POC Glucose Hemoglobin A1c Lactic Acid Calcium Phosphorus Magnesium 3.80 H Transferrin AST 72 H ALT 63 H Alkaline Phosphatase 148 H Total Creatine Kinase 3697 H CK-MB (CK-2) 36.0 H Serum Total Protein Total Protein Albumin 2.2 L Tfnqe-0-Othdrfsia Cxqre-2-Ypramfmob Gamma Globulins PEP Interpretation HDL Cholesterol TSH Arterial Blood Glucose Arterial Blood Ionized Calcium Urine WBC (Auto) Urine Creatinine Urine Total Protein Crossmatch 04/20/21 04/20/21 04/20/21 17:10 17:10 18:55 WBC RBC Hgb Hct MCH RDW Plt Count Seg Neuts % (Manual) Lymphocytes % (Manual) Nucleated RBC % Seg Neutrophils # Man Lymphocytes # (Manual) PT ABG pH POC ABG pCO2 POC ABG pO2 ABG pO2 ABG O2 Saturation ABG Base Excess ABG Hemoglobin ABG Oxyhemoglobin ABG Potassium ABG Chloride ABG Glucose Oxyhemoglobin Carboxyhemoglobin Sodium Potassium Chloride Carbon Dioxide BUN Creatinine Glucose POC Glucose 574 H Hemoglobin A1c Lactic Acid 2.60 H* Calcium Phosphorus Magnesium Transferrin AST ALT Alkaline Phosphatase Total Creatine Kinase CK-MB (CK-2) Serum Total Protein Total Protein Albumin Gfvey-2-Hsnlhwwbj Ksqos-5-Tyrfkhxen Gamma Globulins PEP Interpretation HDL Cholesterol TSH 6.040 H Arterial Blood Glucose Arterial Blood Ionized Calcium Urine WBC (Auto) Urine Creatinine Urine Total Protein Crossmatch 04/20/21 04/20/21 04/20/21 22:12 22:58 22:58 WBC RBC Hgb Hct MCH RDW Plt Count Seg Neuts % (Manual) Lymphocytes % (Manual) Nucleated RBC % Seg Neutrophils # Man Lymphocytes # (Manual) PT ABG pH POC ABG pCO2 POC ABG pO2 ABG pO2 ABG O2 Saturation ABG Base Excess ABG Hemoglobin ABG Oxyhemoglobin ABG Potassium ABG Chloride ABG Glucose Oxyhemoglobin Carboxyhemoglobin Sodium 172 H* Potassium 3.2 L Chloride 134.2 H Carbon Dioxide 17 L BUN 112 H Creatinine 3.8 H Glucose 803 H* POC Glucose 554 H Hemoglobin A1c Lactic Acid Calcium 8.3 L Phosphorus Magnesium 3.50 H Transferrin AST ALT Alkaline Phosphatase Total Creatine Kinase CK-MB (CK-2) Serum Total Protein Total Protein Albumin Sdvir-9-Kjougjtzl Hgcdi-4-Ttrcpkdhf Gamma Globulins PEP Interpretation HDL Cholesterol TSH Arterial Blood Glucose Arterial Blood Ionized Calcium Urine WBC (Auto) Urine Creatinine Urine Total Protein Crossmatch 04/21/21 04/21/21 04/21/21 00:14 00:22 02:01 WBC RBC Hgb Hct MCH RDW Plt Count Seg Neuts % (Manual) Lymphocytes % (Manual) Nucleated RBC % Seg Neutrophils # Man Lymphocytes # (Manual) PT ABG pH POC ABG pCO2 POC ABG pO2 ABG pO2 ABG O2 Saturation ABG Base Excess ABG Hemoglobin ABG Oxyhemoglobin ABG Potassium ABG Chloride ABG Glucose Oxyhemoglobin Carboxyhemoglobin Sodium 176 H* 175 H* Potassium 2.9 L* 3.0 L Chloride 139.9 H 136.2 H Carbon Dioxide 17 L 19 L BUN 113 H 112 H Creatinine 3.9 H 3.6 H Glucose 729 H* 582 H* POC Glucose > 600 H Hemoglobin A1c Lactic Acid Calcium Phosphorus Magnesium Transferrin AST ALT Alkaline Phosphatase Total Creatine Kinase CK-MB (CK-2) Serum Total Protein Total Protein Albumin Qkfpe-3-Oksrqxvdh Rgjfu-9-Qisxqjuqz Gamma Globulins PEP Interpretation HDL Cholesterol TSH Arterial Blood Glucose Arterial Blood Ionized Calcium Urine WBC (Auto) Urine Creatinine Urine Total Protein Crossmatch 04/21/21 04/21/21 04/21/21 03:11 03:20 03:41 WBC 14.1 H RBC Hgb Hct MCH 27 L RDW 16.8 H Plt Count 114 L Seg Neuts % (Manual) 97.0 H Lymphocytes % (Manual) 3.0 L Nucleated RBC % 1.0 H Seg Neutrophils # Man 13.7 H Lymphocytes # (Manual) 0.4 L PT ABG pH POC ABG pCO2 POC ABG pO2 ABG pO2 52.3 L ABG O2 Saturation 84.5 L ABG Base Excess -2.9 L ABG Hemoglobin ABG Oxyhemoglobin ABG Potassium ABG Chloride ABG Glucose Oxyhemoglobin 82.9 L Carboxyhemoglobin Sodium Potassium Chloride Carbon Dioxide BUN Creatinine Glucose POC Glucose 404 H Hemoglobin A1c Lactic Acid Calcium Phosphorus Magnesium Transferrin AST ALT Alkaline Phosphatase Total Creatine Kinase CK-MB (CK-2) Serum Total Protein Total Protein Albumin Jnpcs-3-Cmhqpojmt Dlqsr-3-Cbdelqvwx Gamma Globulins PEP Interpretation HDL Cholesterol TSH Arterial Blood Glucose Arterial Blood Ionized Calcium Urine WBC (Auto) Urine Creatinine Urine Total Protein Crossmatch 04/21/21 04/21/21 04/21/21 03:41 04:24 05:45 WBC RBC Hgb Hct MCH RDW Plt Count Seg Neuts % (Manual) Lymphocytes % (Manual) Nucleated RBC % Seg Neutrophils # Man Lymphocytes # (Manual) PT ABG pH POC ABG pCO2 POC ABG pO2 ABG pO2 ABG O2 Saturation ABG Base Excess ABG Hemoglobin ABG Oxyhemoglobin ABG Potassium ABG Chloride ABG Glucose Oxyhemoglobin Carboxyhemoglobin Sodium 179 H* Potassium 2.9 L* Chloride 138.2 H Carbon Dioxide 20 L BUN 111 H Creatinine 3.7 H Glucose 465 H POC Glucose 353 H 280 H Hemoglobin A1c Lactic Acid Calcium Phosphorus Magnesium Transferrin AST 73 H ALT 61 H Alkaline Phosphatase 144 H Total Creatine Kinase CK-MB (CK-2) Serum Total Protein Total Protein Albumin 2.5 L Mthkk-0-Nlwrlxgds Dfftv-3-Hlzkgqpjd Gamma Globulins PEP Interpretation HDL Cholesterol TSH Arterial Blood Glucose Arterial Blood Ionized Calcium Urine WBC (Auto) Urine Creatinine Urine Total Protein Crossmatch 04/21/21 04/21/21 04/21/21 06:47 08:01 11:11 WBC RBC Hgb Hct MCH RDW Plt Count Seg Neuts % (Manual) Lymphocytes % (Manual) Nucleated RBC % Seg Neutrophils # Man Lymphocytes # (Manual) PT ABG pH POC ABG pCO2 POC ABG pO2 ABG pO2 ABG O2 Saturation ABG Base Excess ABG Hemoglobin ABG Oxyhemoglobin ABG Potassium ABG Chloride ABG Glucose Oxyhemoglobin Carboxyhemoglobin Sodium Potassium Chloride Carbon Dioxide BUN Creatinine Glucose POC Glucose 260 H 68 L Hemoglobin A1c Lactic Acid Calcium Phosphorus Magnesium Transferrin AST ALT Alkaline Phosphatase Total Creatine Kinase CK-MB (CK-2) Serum Total Protein Total Protein Albumin Qylgo-7-Eawsqrwvl Rtckm-4-Wfhpndevp Gamma Globulins PEP Interpretation HDL Cholesterol TSH Arterial Blood Glucose Arterial Blood Ionized Calcium Urine WBC (Auto) Urine Creatinine 44.3 H Urine Total Protein 12 H Crossmatch 04/21/21 04/21/21 04/21/21 12:51 13:41 14:40 WBC RBC Hgb Hct MCH RDW Plt Count Seg Neuts % (Manual) Lymphocytes % (Manual) Nucleated RBC % Seg Neutrophils # Man Lymphocytes # (Manual) PT ABG pH 7.275 L POC ABG pCO2 POC ABG pO2 63.4 L ABG pO2 ABG O2 Saturation ABG Base Excess ABG Hemoglobin 8.4 L ABG Oxyhemoglobin 89.5 L ABG Potassium ABG Chloride 108.0 H ABG Glucose 404 H Oxyhemoglobin Carboxyhemoglobin Sodium Potassium Chloride Carbon Dioxide BUN Creatinine Glucose POC Glucose 146 H 186 H Hemoglobin A1c Lactic Acid Calcium Phosphorus Magnesium Transferrin AST ALT Alkaline Phosphatase Total Creatine Kinase CK-MB (CK-2) Serum Total Protein Total Protein Albumin Loccr-4-Vmmrfjftq Trvzw-8-Qukqoqyew Gamma Globulins PEP Interpretation HDL Cholesterol TSH Arterial Blood Glucose 404 H Arterial Blood Ionized Calcium Urine WBC (Auto) Urine Creatinine Urine Total Protein Crossmatch 04/21/21 04/21/21 04/21/21 15:47 16:25 17:57 WBC RBC Hgb Hct MCH RDW Plt Count Seg Neuts % (Manual) Lymphocytes % (Manual) Nucleated RBC % Seg Neutrophils # Man Lymphocytes # (Manual) PT ABG pH 7.486 H POC ABG pCO2 POC ABG pO2 ABG pO2 168.1 H ABG O2 Saturation 99.1 H ABG Base Excess ABG Hemoglobin 8.9 L ABG Oxyhemoglobin ABG Potassium ABG Chloride ABG Glucose Oxyhemoglobin Carboxyhemoglobin Sodium Potassium Chloride Carbon Dioxide BUN Creatinine Glucose POC Glucose 172 H 143 H Hemoglobin A1c Lactic Acid Calcium Phosphorus Magnesium Transferrin AST ALT Alkaline Phosphatase Total Creatine Kinase CK-MB (CK-2) Serum Total Protein Total Protein Albumin Vrdwy-8-Doivwztud Ehanx-4-Okigsmqsr Gamma Globulins PEP Interpretation HDL Cholesterol TSH Arterial Blood Glucose Arterial Blood Ionized Calcium Urine WBC (Auto) Urine Creatinine Urine Total Protein Crossmatch 04/21/21 04/21/21 04/21/21 18:49 19:10 20:26 WBC RBC Hgb Hct MCH RDW Plt Count Seg Neuts % (Manual) Lymphocytes % (Manual) Nucleated RBC % Seg Neutrophils # Man Lymphocytes # (Manual) PT ABG pH POC ABG pCO2 POC ABG pO2 ABG pO2 ABG O2 Saturation ABG Base Excess ABG Hemoglobin ABG Oxyhemoglobin ABG Potassium ABG Chloride ABG Glucose Oxyhemoglobin Carboxyhemoglobin Sodium 174 H* Potassium 7.2 H* D Chloride 138.2 H Carbon Dioxide 21 L BUN 99 H Creatinine 4.0 H Glucose 157 H POC Glucose 126 H 190 H Hemoglobin A1c Lactic Acid Calcium Phosphorus Magnesium Transferrin AST 134 H ALT 71 H Alkaline Phosphatase 135 H Total Creatine Kinase 3504 H CK-MB (CK-2) Serum Total Protein Total Protein Albumin 2.2 L Mjzvx-2-Omvspidby Ppqpf-6-Udehhcqjw Gamma Globulins PEP Interpretation HDL Cholesterol TSH Arterial Blood Glucose Arterial Blood Ionized Calcium Urine WBC (Auto) Urine Creatinine Urine Total Protein Crossmatch 04/21/21 04/21/21 04/21/21 20:53 21:52 22:55 WBC RBC Hgb Hct MCH RDW Plt Count Seg Neuts % (Manual) Lymphocytes % (Manual) Nucleated RBC % Seg Neutrophils # Man Lymphocytes # (Manual) PT ABG pH POC ABG pCO2 POC ABG pO2 ABG pO2 ABG O2 Saturation ABG Base Excess ABG Hemoglobin ABG Oxyhemoglobin ABG Potassium ABG Chloride ABG Glucose Oxyhemoglobin Carboxyhemoglobin Sodium Potassium Chloride Carbon Dioxide BUN Creatinine Glucose POC Glucose 116 H 135 H 158 H Hemoglobin A1c Lactic Acid Calcium Phosphorus Magnesium Transferrin AST ALT Alkaline Phosphatase Total Creatine Kinase CK-MB (CK-2) Serum Total Protein Total Protein Albumin Puaza-8-Sflgzpejq Cvwtl-3-Bfkiqxpqe Gamma Globulins PEP Interpretation HDL Cholesterol TSH Arterial Blood Glucose Arterial Blood Ionized Calcium Urine WBC (Auto) Urine Creatinine Urine Total Protein Crossmatch 04/21/21 04/22/21 04/22/21 23:00 00:01 00:39 WBC RBC Hgb Hct MCH RDW Plt Count Seg Neuts % (Manual) Lymphocytes % (Manual) Nucleated RBC % Seg Neutrophils # Man Lymphocytes # (Manual) PT ABG pH POC ABG pCO2 POC ABG pO2 ABG pO2 ABG O2 Saturation ABG Base Excess ABG Hemoglobin ABG Oxyhemoglobin ABG Potassium ABG Chloride ABG Glucose Oxyhemoglobin Carboxyhemoglobin Sodium 176 H* 171 H* Potassium Chloride 140.0 H Carbon Dioxide 20 L BUN 98 H Creatinine 3.9 H Glucose 206 H POC Glucose 182 H Hemoglobin A1c Lactic Acid Calcium Phosphorus Magnesium Transferrin AST ALT Alkaline Phosphatase Total Creatine Kinase 3240 H CK-MB (CK-2) Serum Total Protein Total Protein Albumin Udwci-2-Wnzakeurn Hqgzv-5-Zfoisvzai Gamma Globulins PEP Interpretation HDL Cholesterol TSH Arterial Blood Glucose Arterial Blood Ionized Calcium Urine WBC (Auto) Urine Creatinine Urine Total Protein Crossmatch 04/22/21 04/22/21 04/22/21 00:58 01:04 04:52 WBC 11.2 H RBC Hgb Hct 44.3 H MCH 27 L RDW 17.1 H Plt Count 86 L Seg Neuts % (Manual) 86.0 H Lymphocytes % (Manual) 13.0 L Nucleated RBC % Seg Neutrophils # Man 9.6 H Lymphocytes # (Manual) PT ABG pH POC ABG pCO2 POC ABG pO2 ABG pO2 ABG O2 Saturation ABG Base Excess ABG Hemoglobin ABG Oxyhemoglobin ABG Potassium ABG Chloride ABG Glucose Oxyhemoglobin Carboxyhemoglobin Sodium Potassium Chloride Carbon Dioxide BUN Creatinine Glucose POC Glucose 176 H 143 H Hemoglobin A1c Lactic Acid Calcium Phosphorus Magnesium Transferrin AST ALT Alkaline Phosphatase Total Creatine Kinase CK-MB (CK-2) Serum Total Protein Total Protein Albumin Yfzhm-5-Vykqdexmp Hkswk-8-Xvhvsnsku Gamma Globulins PEP Interpretation HDL Cholesterol TSH Arterial Blood Glucose Arterial Blood Ionized Calcium Urine WBC (Auto) Urine Creatinine Urine Total Protein Crossmatch 04/22/21 04/22/21 04/22/21 06:07 06:09 07:18 WBC RBC Hgb Hct MCH RDW Plt Count Seg Neuts % (Manual) Lymphocytes % (Manual) Nucleated RBC % Seg Neutrophils # Man Lymphocytes # (Manual) PT ABG pH POC ABG pCO2 POC ABG pO2 ABG pO2 ABG O2 Saturation ABG Base Excess ABG Hemoglobin ABG Oxyhemoglobin ABG Potassium ABG Chloride ABG Glucose Oxyhemoglobin Carboxyhemoglobin Sodium Potassium Chloride Carbon Dioxide BUN Creatinine Glucose POC Glucose 206 H 163 H 158 H Hemoglobin A1c Lactic Acid Calcium Phosphorus Magnesium Transferrin AST ALT Alkaline Phosphatase Total Creatine Kinase CK-MB (CK-2) Serum Total Protein Total Protein Albumin Zjzzi-1-Bsswjfxmj Rsfix-6-Zwhxvubyc Gamma Globulins PEP Interpretation HDL Cholesterol TSH Arterial Blood Glucose Arterial Blood Ionized Calcium Urine WBC (Auto) Urine Creatinine Urine Total Protein Crossmatch 04/22/21 04/22/21 04/22/21 08:59 08:59 08:59 WBC RBC Hgb Hct MCH RDW Plt Count Seg Neuts % (Manual) Lymphocytes % (Manual) Nucleated RBC % Seg Neutrophils # Man Lymphocytes # (Manual) PT ABG pH POC ABG pCO2 POC ABG pO2 ABG pO2 ABG O2 Saturation ABG Base Excess ABG Hemoglobin ABG Oxyhemoglobin ABG Potassium ABG Chloride ABG Glucose Oxyhemoglobin Carboxyhemoglobin Sodium 169 H* Potassium 3.5 L Chloride 134.5 H Carbon Dioxide 20 L BUN 95 H Creatinine 3.6 H Glucose 151 H POC Glucose Hemoglobin A1c Lactic Acid Calcium Phosphorus Magnesium Transferrin AST 121 H ALT 75 H Alkaline Phosphatase 137 H Total Creatine Kinase 3105 H CK-MB (CK-2) Serum Total Protein 5.5 L Total Protein 6.0 L Albumin 2.8 L 2.1 L Mwdko-0-Ihngmtxlq 0.6 H Sexem-7-Laenuvtnw 1.0 H Gamma Globulins 0.6 L PEP Interpretation see below H HDL Cholesterol TSH Arterial Blood Glucose Arterial Blood Ionized Calcium Urine WBC (Auto) Urine Creatinine Urine Total Protein Crossmatch 04/22/21 04/22/21 04/22/21 09:44 10:24 12:20 WBC RBC Hgb Hct MCH RDW Plt Count Seg Neuts % (Manual) Lymphocytes % (Manual) Nucleated RBC % Seg Neutrophils # Man Lymphocytes # (Manual) PT ABG pH POC ABG pCO2 POC ABG pO2 ABG pO2 ABG O2 Saturation ABG Base Excess ABG Hemoglobin ABG Oxyhemoglobin ABG Potassium ABG Chloride ABG Glucose Oxyhemoglobin Carboxyhemoglobin Sodium Potassium Chloride Carbon Dioxide BUN Creatinine Glucose POC Glucose 107 H 131 H Hemoglobin A1c Lactic Acid Calcium Phosphorus Magnesium 2.80 H Transferrin AST ALT Alkaline Phosphatase Total Creatine Kinase CK-MB (CK-2) Serum Total Protein Total Protein Albumin Eiwfq-8-Akyehedtq Aqpxj-1-Zjlnsxukg Gamma Globulins PEP Interpretation HDL Cholesterol TSH Arterial Blood Glucose Arterial Blood Ionized Calcium Urine WBC (Auto) Urine Creatinine Urine Total Protein Crossmatch 04/22/21 04/22/21 04/22/21 13:19 14:16 15:22 WBC RBC Hgb Hct MCH RDW Plt Count Seg Neuts % (Manual) Lymphocytes % (Manual) Nucleated RBC % Seg Neutrophils # Man Lymphocytes # (Manual) PT ABG pH POC ABG pCO2 POC ABG pO2 ABG pO2 ABG O2 Saturation ABG Base Excess ABG Hemoglobin ABG Oxyhemoglobin ABG Potassium ABG Chloride ABG Glucose Oxyhemoglobin Carboxyhemoglobin Sodium Potassium Chloride Carbon Dioxide BUN Creatinine Glucose POC Glucose 147 H 154 H 136 H Hemoglobin A1c Lactic Acid Calcium Phosphorus Magnesium Transferrin AST ALT Alkaline Phosphatase Total Creatine Kinase CK-MB (CK-2) Serum Total Protein Total Protein Albumin Zcuzu-9-Bciawtuta Dnzmk-4-Snnqvfhbd Gamma Globulins PEP Interpretation HDL Cholesterol TSH Arterial Blood Glucose Arterial Blood Ionized Calcium Urine WBC (Auto) Urine Creatinine Urine Total Protein Crossmatch 04/22/21 04/22/21 04/22/21 15:55 15:55 16:22 WBC RBC Hgb Hct MCH RDW Plt Count Seg Neuts % (Manual) Lymphocytes % (Manual) Nucleated RBC % Seg Neutrophils # Man Lymphocytes # (Manual) PT ABG pH POC ABG pCO2 POC ABG pO2 ABG pO2 ABG O2 Saturation ABG Base Excess ABG Hemoglobin ABG Oxyhemoglobin ABG Potassium ABG Chloride ABG Glucose Oxyhemoglobin Carboxyhemoglobin Sodium 169 H* Potassium Chloride 133.5 H Carbon Dioxide 19 L BUN 94 H Creatinine 3.8 H Glucose 150 H POC Glucose 140 H Hemoglobin A1c 17.1 H Lactic Acid Calcium Phosphorus Magnesium Transferrin AST ALT Alkaline Phosphatase Total Creatine Kinase CK-MB (CK-2) Serum Total Protein Total Protein Albumin Uwymi-0-Nywdnedan Lrjtb-5-Lrivuvivh Gamma Globulins PEP Interpretation HDL Cholesterol TSH Arterial Blood Glucose Arterial Blood Ionized Calcium Urine WBC (Auto) Urine Creatinine Urine Total Protein Crossmatch 04/22/21 04/22/21 04/22/21 18:11 18:26 23:19 WBC RBC Hgb Hct MCH RDW Plt Count Seg Neuts % (Manual) Lymphocytes % (Manual) Nucleated RBC % Seg Neutrophils # Man Lymphocytes # (Manual) PT ABG pH POC ABG pCO2 POC ABG pO2 ABG pO2 ABG O2 Saturation ABG Base Excess ABG Hemoglobin ABG Oxyhemoglobin ABG Potassium ABG Chloride ABG Glucose Oxyhemoglobin Carboxyhemoglobin Sodium Potassium Chloride Carbon Dioxide BUN Creatinine Glucose POC Glucose 146 H 188 H Hemoglobin A1c Lactic Acid Calcium Phosphorus Magnesium Transferrin AST ALT Alkaline Phosphatase Total Creatine Kinase 2497 H CK-MB (CK-2) Serum Total Protein Total Protein Albumin Fwpbk-9-Ctfnznans Qepaj-3-Homyewfkq Gamma Globulins PEP Interpretation HDL Cholesterol TSH Arterial Blood Glucose Arterial Blood Ionized Calcium Urine WBC (Auto) Urine Creatinine Urine Total Protein Crossmatch 04/23/21 04/23/21 04/23/21 00:27 05:23 07:50 WBC RBC Hgb Hct MCH RDW Plt Count Seg Neuts % (Manual) Lymphocytes % (Manual) Nucleated RBC % Seg Neutrophils # Man Lymphocytes # (Manual) PT ABG pH POC ABG pCO2 POC ABG pO2 ABG pO2 ABG O2 Saturation ABG Base Excess ABG Hemoglobin ABG Oxyhemoglobin ABG Potassium ABG Chloride ABG Glucose Oxyhemoglobin Carboxyhemoglobin Sodium 162 H* Potassium Chloride Carbon Dioxide BUN Creatinine Glucose POC Glucose 212 H 239 H Hemoglobin A1c Lactic Acid Calcium Phosphorus Magnesium Transferrin AST ALT Alkaline Phosphatase Total Creatine Kinase CK-MB (CK-2) Serum Total Protein Total Protein Albumin Daqvf-0-Hbjvciaxz Jgknt-7-Qorhyxjur Gamma Globulins PEP Interpretation HDL Cholesterol TSH Arterial Blood Glucose Arterial Blood Ionized Calcium Urine WBC (Auto) Urine Creatinine Urine Total Protein Crossmatch 04/23/21 04/23/21 04/23/21 08:13 08:13 08:13 WBC 11.9 H RBC Hgb Hct MCH 26 L RDW 16.5 H Plt Count 72 L Seg Neuts % (Manual) 80.0 H Lymphocytes % (Manual) 5.0 L Nucleated RBC % Seg Neutrophils # Man 9.5 H Lymphocytes # (Manual) 0.6 L PT ABG pH POC ABG pCO2 POC ABG pO2 ABG pO2 ABG O2 Saturation ABG Base Excess ABG Hemoglobin ABG Oxyhemoglobin ABG Potassium ABG Chloride ABG Glucose Oxyhemoglobin Carboxyhemoglobin Sodium 164 H* Potassium Chloride 128.0 H Carbon Dioxide 21 L BUN 93 H Creatinine 3.8 H Glucose 293 H POC Glucose Hemoglobin A1c Lactic Acid Calcium Phosphorus Magnesium Transferrin AST 99 H ALT 70 H Alkaline Phosphatase 147 H Total Creatine Kinase 1803 H CK-MB (CK-2) Serum Total Protein Total Protein 6.1 L Albumin 2.0 L Zkyen-0-Psomribwy Ngggs-7-Dbjbdvlau Gamma Globulins PEP Interpretation HDL Cholesterol TSH Arterial Blood Glucose Arterial Blood Ionized Calcium Urine WBC (Auto) Urine Creatinine Urine Total Protein Crossmatch 04/23/21 04/23/21 04/23/21 12:06 17:35 18:17 WBC RBC Hgb Hct MCH RDW Plt Count Seg Neuts % (Manual) Lymphocytes % (Manual) Nucleated RBC % Seg Neutrophils # Man Lymphocytes # (Manual) PT ABG pH POC ABG pCO2 POC ABG pO2 ABG pO2 ABG O2 Saturation ABG Base Excess ABG Hemoglobin ABG Oxyhemoglobin ABG Potassium ABG Chloride ABG Glucose Oxyhemoglobin Carboxyhemoglobin Sodium 160 H Potassium Chloride Carbon Dioxide BUN Creatinine Glucose POC Glucose 311 H 370 H Hemoglobin A1c Lactic Acid Calcium Phosphorus Magnesium Transferrin AST ALT Alkaline Phosphatase Total Creatine Kinase CK-MB (CK-2) Serum Total Protein Total Protein Albumin Clwpc-9-Fapnhmhwy Siflm-1-Wjdmuodhq Gamma Globulins PEP Interpretation HDL Cholesterol TSH Arterial Blood Glucose Arterial Blood Ionized Calcium Urine WBC (Auto) Urine Creatinine Urine Total Protein Crossmatch 04/24/21 04/24/21 04/24/21 02:13 06:00 06:00 WBC RBC Hgb Hct MCH 27 L RDW 17.0 H Plt Count 58 L Seg Neuts % (Manual) Lymphocytes % (Manual) 2.0 L Nucleated RBC % Seg Neutrophils # Man 8.9 H Lymphocytes # (Manual) 0.2 L PT ABG pH POC ABG pCO2 POC ABG pO2 ABG pO2 ABG O2 Saturation ABG Base Excess ABG Hemoglobin ABG Oxyhemoglobin ABG Potassium ABG Chloride ABG Glucose Oxyhemoglobin Carboxyhemoglobin Sodium 160 H Potassium Chloride Carbon Dioxide BUN Creatinine Glucose POC Glucose Hemoglobin A1c Lactic Acid Calcium Phosphorus Magnesium 2.90 H Transferrin AST ALT Alkaline Phosphatase Total Creatine Kinase CK-MB (CK-2) Serum Total Protein Total Protein Albumin Ljpiq-1-Yvqxfohhi Onweb-1-Xzdlqitea Gamma Globulins PEP Interpretation HDL Cholesterol TSH Arterial Blood Glucose Arterial Blood Ionized Calcium Urine WBC (Auto) Urine Creatinine Urine Total Protein Crossmatch 04/24/21 04/24/21 04/24/21 07:46 08:15 11:34 WBC RBC Hgb Hct MCH RDW Plt Count Seg Neuts % (Manual) Lymphocytes % (Manual) Nucleated RBC % Seg Neutrophils # Man Lymphocytes # (Manual) PT ABG pH POC ABG pCO2 POC ABG pO2 ABG pO2 ABG O2 Saturation ABG Base Excess ABG Hemoglobin ABG Oxyhemoglobin ABG Potassium ABG Chloride ABG Glucose Oxyhemoglobin Carboxyhemoglobin Sodium 159 H Potassium Chloride 125.6 H Carbon Dioxide 19 L BUN 94 H Creatinine 3.7 H Glucose 514 H* POC Glucose 395 H 422 H Hemoglobin A1c Lactic Acid Calcium Phosphorus Magnesium Transferrin AST ALT 61 H Alkaline Phosphatase 155 H Total Creatine Kinase CK-MB (CK-2) Serum Total Protein Total Protein 6.1 L Albumin 1.5 L Fdtjg-3-Xhckgoaxu Tqxjy-9-Wgzldwiam Gamma Globulins PEP Interpretation HDL Cholesterol TSH Arterial Blood Glucose Arterial Blood Ionized Calcium Urine WBC (Auto) Urine Creatinine Urine Total Protein Crossmatch 04/24/21 04/24/21 04/24/21 13:11 14:01 15:03 WBC RBC Hgb Hct MCH RDW Plt Count Seg Neuts % (Manual) Lymphocytes % (Manual) Nucleated RBC % Seg Neutrophils # Man Lymphocytes # (Manual) PT ABG pH POC ABG pCO2 POC ABG pO2 ABG pO2 ABG O2 Saturation ABG Base Excess ABG Hemoglobin ABG Oxyhemoglobin ABG Potassium ABG Chloride ABG Glucose Oxyhemoglobin Carboxyhemoglobin Sodium Potassium Chloride Carbon Dioxide BUN Creatinine Glucose POC Glucose 384 H 423 H 418 H Hemoglobin A1c Lactic Acid Calcium Phosphorus Magnesium Transferrin AST ALT Alkaline Phosphatase Total Creatine Kinase CK-MB (CK-2) Serum Total Protein Total Protein Albumin Xbexq-2-Ivsnolumt Fqosg-0-Ahcicnfdy Gamma Globulins PEP Interpretation HDL Cholesterol TSH Arterial Blood Glucose Arterial Blood Ionized Calcium Urine WBC (Auto) Urine Creatinine Urine Total Protein Crossmatch 04/24/21 04/24/21 04/24/21 17:29 18:28 19:41 WBC RBC Hgb Hct MCH RDW Plt Count Seg Neuts % (Manual) Lymphocytes % (Manual) Nucleated RBC % Seg Neutrophils # Man Lymphocytes # (Manual) PT ABG pH POC ABG pCO2 POC ABG pO2 ABG pO2 ABG O2 Saturation ABG Base Excess ABG Hemoglobin ABG Oxyhemoglobin ABG Potassium ABG Chloride ABG Glucose Oxyhemoglobin Carboxyhemoglobin Sodium Potassium Chloride Carbon Dioxide BUN Creatinine Glucose POC Glucose 335 H 321 H Hemoglobin A1c Lactic Acid Calcium Phosphorus Magnesium Transferrin 112 L AST ALT Alkaline Phosphatase Total Creatine Kinase CK-MB (CK-2) Serum Total Protein Total Protein Albumin Mtuyd-1-Qfonbdqmt Jsgso-2-Vpblakwib Gamma Globulins PEP Interpretation HDL Cholesterol TSH Arterial Blood Glucose Arterial Blood Ionized Calcium Urine WBC (Auto) Urine Creatinine Urine Total Protein Crossmatch 04/24/21 04/25/21 04/25/21 22:33 01:28 02:28 WBC RBC Hgb Hct MCH RDW Plt Count Seg Neuts % (Manual) Lymphocytes % (Manual) Nucleated RBC % Seg Neutrophils # Man Lymphocytes # (Manual) PT ABG pH POC ABG pCO2 POC ABG pO2 ABG pO2 ABG O2 Saturation ABG Base Excess ABG Hemoglobin ABG Oxyhemoglobin ABG Potassium ABG Chloride ABG Glucose Oxyhemoglobin Carboxyhemoglobin Sodium Potassium Chloride Carbon Dioxide BUN Creatinine Glucose POC Glucose 349 H 283 H 247 H Hemoglobin A1c Lactic Acid Calcium Phosphorus Magnesium Transferrin AST ALT Alkaline Phosphatase Total Creatine Kinase CK-MB (CK-2) Serum Total Protein Total Protein Albumin Psqpq-4-Kvdhjgktt Tutam-7-Sgzjnxkad Gamma Globulins PEP Interpretation HDL Cholesterol TSH Arterial Blood Glucose Arterial Blood Ionized Calcium Urine WBC (Auto) Urine Creatinine Urine Total Protein Crossmatch 04/25/21 04/25/21 04/25/21 03:25 04:22 05:40 WBC RBC Hgb Hct MCH RDW Plt Count Seg Neuts % (Manual) Lymphocytes % (Manual) Nucleated RBC % Seg Neutrophils # Delbert Lymphocytes # (Manual) PT ABG pH POC ABG pCO2 POC ABG pO2 ABG pO2 ABG O2 Saturation ABG Base Excess ABG Hemoglobin ABG Oxyhemoglobin ABG Potassium ABG Chloride ABG Glucose Oxyhemoglobin Carboxyhemoglobin Sodium Potassium Chloride Carbon Dioxide BUN Creatinine Glucose POC Glucose 196 H 207 H 204 H Hemoglobin A1c Lactic Acid Calcium Phosphorus Magnesium Transferrin AST ALT Alkaline Phosphatase Total Creatine Kinase CK-MB (CK-2) Serum Total Protein Total Protein Albumin Ndcxa-5-Mtkebazvg Hfmlj-3-Xhtfubxxv Gamma Globulins PEP Interpretation HDL Cholesterol TSH Arterial Blood Glucose Arterial Blood Ionized Calcium Urine WBC (Auto) Urine Creatinine Urine Total Protein Crossmatch 04/25/21 04/25/21 04/25/21 05:45 06:43 07:37 WBC RBC Hgb Hct MCH 27 L RDW 17.0 H Plt Count 64 L Seg Neuts % (Manual) 84.0 H Lymphocytes % (Manual) 6.0 L Nucleated RBC % 1.0 H Seg Neutrophils # Delbert Lymphocytes # (Manual) 0.4 L PT ABG pH POC ABG pCO2 POC ABG pO2 ABG pO2 ABG O2 Saturation ABG Base Excess ABG Hemoglobin ABG Oxyhemoglobin ABG Potassium ABG Chloride ABG Glucose Oxyhemoglobin Carboxyhemoglobin Sodium Potassium Chloride Carbon Dioxide BUN Creatinine Glucose POC Glucose 238 H 201 H Hemoglobin A1c Lactic Acid Calcium Phosphorus Magnesium Transferrin AST ALT Alkaline Phosphatase Total Creatine Kinase CK-MB (CK-2) Serum Total Protein Total Protein Albumin Xyval-7-Zohwyneek Fyynd-2-Jdfppegwd Gamma Globulins PEP Interpretation HDL Cholesterol TSH Arterial Blood Glucose Arterial Blood Ionized Calcium Urine WBC (Auto) Urine Creatinine Urine Total Protein Crossmatch 04/25/21 04/25/21 04/25/21 08:11 08:11 08:41 WBC RBC Hgb Hct MCH RDW Plt Count Seg Neuts % (Manual) Lymphocytes % (Manual) Nucleated RBC % Seg Neutrophils # Man Lymphocytes # (Manual) PT ABG pH POC ABG pCO2 POC ABG pO2 ABG pO2 ABG O2 Saturation ABG Base Excess ABG Hemoglobin ABG Oxyhemoglobin ABG Potassium ABG Chloride ABG Glucose Oxyhemoglobin Carboxyhemoglobin Sodium 148 H D Potassium Chloride 115.7 H Carbon Dioxide 21 L BUN 83 H Creatinine 3.6 H Glucose 247 H POC Glucose 220 H Hemoglobin A1c Lactic Acid Calcium Phosphorus Magnesium 2.50 H Transferrin AST 63 H ALT 62 H Alkaline Phosphatase 143 H Total Creatine Kinase CK-MB (CK-2) Serum Total Protein Total Protein 5.4 L Albumin 1.4 L Jbbtl-0-Ikyfxgcby Sqrba-0-Ieqmvakuq Gamma Globulins PEP Interpretation HDL Cholesterol TSH Arterial Blood Glucose Arterial Blood Ionized Calcium Urine WBC (Auto) Urine Creatinine Urine Total Protein Crossmatch 04/25/21 04/25/21 04/25/21 09:22 10:31 11:44 WBC RBC Hgb Hct MCH RDW Plt Count Seg Neuts % (Manual) Lymphocytes % (Manual) Nucleated RBC % Seg Neutrophils # Man Lymphocytes # (Manual) PT ABG pH POC ABG pCO2 POC ABG pO2 ABG pO2 ABG O2 Saturation ABG Base Excess ABG Hemoglobin ABG Oxyhemoglobin ABG Potassium ABG Chloride ABG Glucose Oxyhemoglobin Carboxyhemoglobin Sodium Potassium Chloride Carbon Dioxide BUN Creatinine Glucose POC Glucose 228 H 215 H 191 H Hemoglobin A1c Lactic Acid Calcium Phosphorus Magnesium Transferrin AST ALT Alkaline Phosphatase Total Creatine Kinase CK-MB (CK-2) Serum Total Protein Total Protein Albumin Amith-6-Qttjszujb Xileh-3-Ejebuhrzz Gamma Globulins PEP Interpretation HDL Cholesterol TSH Arterial Blood Glucose Arterial Blood Ionized Calcium Urine WBC (Auto) Urine Creatinine Urine Total Protein Crossmatch 04/25/21 04/25/21 04/25/21 12:23 13:48 14:11 WBC RBC Hgb Hct MCH RDW Plt Count Seg Neuts % (Manual) Lymphocytes % (Manual) Nucleated RBC % Seg Neutrophils # Man Lymphocytes # (Manual) PT ABG pH POC ABG pCO2 POC ABG pO2 ABG pO2 ABG O2 Saturation ABG Base Excess ABG Hemoglobin ABG Oxyhemoglobin ABG Potassium ABG Chloride ABG Glucose Oxyhemoglobin Carboxyhemoglobin Sodium Potassium Chloride Carbon Dioxide BUN Creatinine Glucose POC Glucose 229 H 177 H 161 H Hemoglobin A1c Lactic Acid Calcium Phosphorus Magnesium Transferrin AST ALT Alkaline Phosphatase Total Creatine Kinase CK-MB (CK-2) Serum Total Protein Total Protein Albumin Smyyb-4-Ogtminubu Zyzjz-2-Jlntryfzr Gamma Globulins PEP Interpretation HDL Cholesterol TSH Arterial Blood Glucose Arterial Blood Ionized Calcium Urine WBC (Auto) Urine Creatinine Urine Total Protein Crossmatch 04/25/21 04/25/21 04/26/21 18:01 21:31 01:19 WBC RBC Hgb Hct MCH RDW Plt Count Seg Neuts % (Manual) Lymphocytes % (Manual) Nucleated RBC % Seg Neutrophils # Delbert Lymphocytes # (Manual) PT ABG pH POC ABG pCO2 POC ABG pO2 ABG pO2 ABG O2 Saturation ABG Base Excess ABG Hemoglobin ABG Oxyhemoglobin ABG Potassium ABG Chloride ABG Glucose Oxyhemoglobin Carboxyhemoglobin Sodium Potassium Chloride Carbon Dioxide BUN Creatinine Glucose POC Glucose 264 H 371 H 356 H Hemoglobin A1c Lactic Acid Calcium Phosphorus Magnesium Transferrin AST ALT Alkaline Phosphatase Total Creatine Kinase CK-MB (CK-2) Serum Total Protein Total Protein Albumin Wbmuk-6-Lbfkxtdsv Wkkhv-8-Vbafbrkel Gamma Globulins PEP Interpretation HDL Cholesterol TSH Arterial Blood Glucose Arterial Blood Ionized Calcium Urine WBC (Auto) Urine Creatinine Urine Total Protein Crossmatch 04/26/21 04/26/21 04/26/21 06:31 09:13 09:33 WBC RBC Hgb Hct MCH 27 L RDW 16.9 H Plt Count 58 L Seg Neuts % (Manual) 77.0 H Lymphocytes % (Manual) 4.0 L Nucleated RBC % 2.0 H Seg Neutrophils # Delbert Lymphocytes # (Manual) 0.3 L PT ABG pH POC ABG pCO2 POC ABG pO2 ABG pO2 ABG O2 Saturation ABG Base Excess ABG Hemoglobin ABG Oxyhemoglobin ABG Potassium ABG Chloride ABG Glucose Oxyhemoglobin Carboxyhemoglobin Sodium Potassium Chloride Carbon Dioxide BUN Creatinine Glucose POC Glucose 428 H 454 H Hemoglobin A1c Lactic Acid Calcium Phosphorus Magnesium Transferrin AST ALT Alkaline Phosphatase Total Creatine Kinase CK-MB (CK-2) Serum Total Protein Total Protein Albumin Eaxmy-6-Qzzssrbgo Qwabd-2-Fkgvstonh Gamma Globulins PEP Interpretation HDL Cholesterol TSH Arterial Blood Glucose Arterial Blood Ionized Calcium Urine WBC (Auto) Urine Creatinine Urine Total Protein Crossmatch 04/26/21 04/26/21 04/26/21 09:33 09:33 11:00 WBC RBC Hgb Hct MCH RDW Plt Count Seg Neuts % (Manual) Lymphocytes % (Manual) Nucleated RBC % Seg Neutrophils # Man Lymphocytes # (Manual) PT ABG pH 7.281 L POC ABG pCO2 POC ABG pO2 66.4 L ABG pO2 ABG O2 Saturation ABG Base Excess ABG Hemoglobin 10.9 L ABG Oxyhemoglobin 91 L ABG Potassium ABG Chloride ABG Glucose 521 H Oxyhemoglobin Carboxyhemoglobin Sodium Potassium Chloride Carbon Dioxide 19 L BUN 98 H Creatinine 3.8 H Glucose 530 H* POC Glucose Hemoglobin A1c Lactic Acid Calcium 8.1 L Phosphorus 5.60 H D Magnesium Transferrin AST 60 H ALT 72 H Alkaline Phosphatase 168 H Total Creatine Kinase CK-MB (CK-2) Serum Total Protein Total Protein 4.6 L Albumin 1.7 L Doeon-7-Ukfsmpifg Fotwv-0-Lgrqmdmsp Gamma Globulins PEP Interpretation HDL Cholesterol TSH Arterial Blood Glucose 521 H Arterial Blood Ionized Calcium Urine WBC (Auto) Urine Creatinine Urine Total Protein Crossmatch 04/26/21 04/26/21 04/26/21 12:36 15:39 16:18 WBC RBC Hgb Hct MCH RDW Plt Count Seg Neuts % (Manual) Lymphocytes % (Manual) Nucleated RBC % Seg Neutrophils # Man Lymphocytes # (Manual) PT ABG pH 7.275 L POC ABG pCO2 POC ABG pO2 63.4 L ABG pO2 ABG O2 Saturation ABG Base Excess ABG Hemoglobin 8.4 L ABG Oxyhemoglobin 89.5 L ABG Potassium ABG Chloride 108.0 H ABG Glucose 404 H Oxyhemoglobin Carboxyhemoglobin Sodium Potassium Chloride Carbon Dioxide BUN Creatinine Glucose POC Glucose 414 H 324 H Hemoglobin A1c Lactic Acid Calcium Phosphorus Magnesium Transferrin AST ALT Alkaline Phosphatase Total Creatine Kinase CK-MB (CK-2) Serum Total Protein Total Protein Albumin Jsvds-5-Efuwdxmlp Tzsvi-1-Afwckscmp Gamma Globulins PEP Interpretation HDL Cholesterol TSH Arterial Blood Glucose 404 H Arterial Blood Ionized Calcium Urine WBC (Auto) Urine Creatinine Urine Total Protein Crossmatch 04/26/21 04/27/21 04/27/21 21:14 00:07 05:47 WBC RBC Hgb Hct MCH RDW Plt Count Seg Neuts % (Manual) Lymphocytes % (Manual) Nucleated RBC % Seg Neutrophils # Man Lymphocytes # (Manual) PT ABG pH POC ABG pCO2 POC ABG pO2 ABG pO2 ABG O2 Saturation ABG Base Excess ABG Hemoglobin ABG Oxyhemoglobin ABG Potassium ABG Chloride ABG Glucose Oxyhemoglobin Carboxyhemoglobin Sodium Potassium Chloride Carbon Dioxide BUN Creatinine Glucose POC Glucose 242 H 282 H 214 H Hemoglobin A1c Lactic Acid Calcium Phosphorus Magnesium Transferrin AST ALT Alkaline Phosphatase Total Creatine Kinase CK-MB (CK-2) Serum Total Protein Total Protein Albumin Nfytb-0-Brvydsvyi Hgofv-6-Cnkhqsstk Gamma Globulins PEP Interpretation HDL Cholesterol TSH Arterial Blood Glucose Arterial Blood Ionized Calcium Urine WBC (Auto) Urine Creatinine Urine Total Protein Crossmatch 04/27/21 04/27/21 04/27/21 06:23 07:43 08:30 WBC RBC Hgb Hct MCH RDW Plt Count Seg Neuts % (Manual) Lymphocytes % (Manual) Nucleated RBC % Seg Neutrophils # Man Lymphocytes # (Manual) PT ABG pH 7.309 L POC ABG pCO2 POC ABG pO2 70.6 L ABG pO2 ABG O2 Saturation ABG Base Excess ABG Hemoglobin 9.16 L ABG Oxyhemoglobin 92.4 L ABG Potassium ABG Chloride ABG Glucose Oxyhemoglobin Carboxyhemoglobin Sodium Potassium Chloride 110.1 H Carbon Dioxide 15 L BUN 109 H Creatinine 4.3 H Glucose 218 H POC Glucose 187 H Hemoglobin A1c Lactic Acid Calcium Phosphorus Magnesium Transferrin AST 53 H ALT Alkaline Phosphatase 148 H Total Creatine Kinase 1000 H CK-MB (CK-2) Serum Total Protein Total Protein 5.2 L Albumin 1.2 L Avneb-3-Qvtmkrqgp Bdenf-4-Xzlvwtwnq Gamma Globulins PEP Interpretation HDL Cholesterol TSH Arterial Blood Glucose Arterial Blood Ionized Calcium Urine WBC (Auto) Urine Creatinine Urine Total Protein Crossmatch 04/27/21 04/27/21 04/27/21 11:54 21:08 23:28 WBC RBC Hgb Hct MCH RDW Plt Count Seg Neuts % (Manual) Lymphocytes % (Manual) Nucleated RBC % Seg Neutrophils # Man Lymphocytes # (Manual) PT ABG pH POC ABG pCO2 POC ABG pO2 ABG pO2 ABG O2 Saturation ABG Base Excess ABG Hemoglobin ABG Oxyhemoglobin ABG Potassium ABG Chloride ABG Glucose Oxyhemoglobin Carboxyhemoglobin Sodium Potassium Chloride Carbon Dioxide BUN Creatinine Glucose POC Glucose 147 H 136 H 201 H Hemoglobin A1c Lactic Acid Calcium Phosphorus Magnesium Transferrin AST ALT Alkaline Phosphatase Total Creatine Kinase CK-MB (CK-2) Serum Total Protein Total Protein Albumin Olazo-6-Peattldlk Fuwbr-8-Xsuczbqvp Gamma Globulins PEP Interpretation HDL Cholesterol TSH Arterial Blood Glucose Arterial Blood Ionized Calcium Urine WBC (Auto) Urine Creatinine Urine Total Protein Crossmatch 04/28/21 04/28/21 04/28/21 04:00 04:00 05:00 WBC 12.6 H RBC 3.59 L Hgb 9.4 L Hct MCH 26 L RDW 16.6 H Plt Count 111 L Seg Neuts % (Manual) Lymphocytes % (Manual) 1.0 L Nucleated RBC % 4.0 H Seg Neutrophils # Man 11.6 H Lymphocytes # (Manual) 0.1 L PT 15.3 H ABG pH POC ABG pCO2 POC ABG pO2 ABG pO2 ABG O2 Saturation ABG Base Excess ABG Hemoglobin ABG Oxyhemoglobin ABG Potassium ABG Chloride ABG Glucose Oxyhemoglobin Carboxyhemoglobin Sodium 147 H Potassium 3.5 L D Chloride Carbon Dioxide BUN 79 H Creatinine 3.8 H Glucose 194 H POC Glucose Hemoglobin A1c Lactic Acid Calcium 8.1 L Phosphorus Magnesium Transferrin AST ALT Alkaline Phosphatase Total Creatine Kinase CK-MB (CK-2) Serum Total Protein Total Protein Albumin Hgfee-3-Ndejwsjne Pdqze-7-Ffaktcejh Gamma Globulins PEP Interpretation HDL Cholesterol TSH Arterial Blood Glucose Arterial Blood Ionized Calcium Urine WBC (Auto) Urine Creatinine Urine Total Protein Crossmatch 04/28/21 04/28/21 04/28/21 05:08 05:18 11:04 WBC RBC Hgb Hct MCH RDW Plt Count Seg Neuts % (Manual) Lymphocytes % (Manual) Nucleated RBC % Seg Neutrophils # Man Lymphocytes # (Manual) PT ABG pH POC ABG pCO2 POC ABG pO2 66.5 L ABG pO2 ABG O2 Saturation ABG Base Excess ABG Hemoglobin 9.7 L ABG Oxyhemoglobin 92.5 L ABG Potassium 3.2 L ABG Chloride ABG Glucose 200 H Oxyhemoglobin Carboxyhemoglobin Sodium Potassium Chloride Carbon Dioxide BUN Creatinine Glucose POC Glucose 183 H 174 H Hemoglobin A1c Lactic Acid Calcium Phosphorus Magnesium Transferrin AST ALT Alkaline Phosphatase Total Creatine Kinase CK-MB (CK-2) Serum Total Protein Total Protein Albumin Ayuus-6-Cofaocniy Ixelg-9-Ukensynio Gamma Globulins PEP Interpretation HDL Cholesterol TSH Arterial Blood Glucose 200 H Arterial Blood Ionized Calcium 4.5 L Urine WBC (Auto) Urine Creatinine Urine Total Protein Crossmatch 04/28/21 04/28/21 04/28/21 17:16 21:14 23:41 WBC RBC Hgb Hct MCH RDW Plt Count Seg Neuts % (Manual) Lymphocytes % (Manual) Nucleated RBC % Seg Neutrophils # Man Lymphocytes # (Manual) PT ABG pH POC ABG pCO2 POC ABG pO2 ABG pO2 ABG O2 Saturation ABG Base Excess ABG Hemoglobin ABG Oxyhemoglobin ABG Potassium ABG Chloride ABG Glucose Oxyhemoglobin Carboxyhemoglobin Sodium Potassium Chloride Carbon Dioxide BUN Creatinine Glucose POC Glucose 135 H 134 H 171 H Hemoglobin A1c Lactic Acid Calcium Phosphorus Magnesium Transferrin AST ALT Alkaline Phosphatase Total Creatine Kinase CK-MB (CK-2) Serum Total Protein Total Protein Albumin Qpuxh-3-Ghbmazpxf Szdtj-0-Kualaapmd Gamma Globulins PEP Interpretation HDL Cholesterol TSH Arterial Blood Glucose Arterial Blood Ionized Calcium Urine WBC (Auto) Urine Creatinine Urine Total Protein Crossmatch 04/29/21 04/29/21 04/29/21 01:16 04:00 04:00 WBC 13.3 H RBC 3.12 L Hgb 8.3 L Hct 26.2 L MCH 27 L RDW 16.3 H Plt Count 132 L Seg Neuts % (Manual) Lymphocytes % (Manual) Nucleated RBC % Seg Neutrophils # Man Lymphocytes # (Manual) PT ABG pH POC ABG pCO2 POC ABG pO2 ABG pO2 ABG O2 Saturation ABG Base Excess ABG Hemoglobin ABG Oxyhemoglobin ABG Potassium ABG Chloride ABG Glucose Oxyhemoglobin Carboxyhemoglobin Sodium Potassium Chloride Carbon Dioxide BUN 63 H Creatinine 3.4 H Glucose 249 H POC Glucose 236 H Hemoglobin A1c Lactic Acid Calcium 8.2 L Phosphorus Magnesium Transferrin AST 61 H ALT 71 H Alkaline Phosphatase 170 H Total Creatine Kinase CK-MB (CK-2) Serum Total Protein Total Protein 5.1 L Albumin 1.6 L Hrkvk-0-Rteosukja Sfivg-9-Wvicsgeiy Gamma Globulins PEP Interpretation HDL Cholesterol TSH Arterial Blood Glucose Arterial Blood Ionized Calcium Urine WBC (Auto) Urine Creatinine Urine Total Protein Crossmatch 04/29/21 04/29/21 04/29/21 11:35 13:30 16:01 WBC RBC Hgb Hct MCH RDW Plt Count Seg Neuts % (Manual) Lymphocytes % (Manual) Nucleated RBC % Seg Neutrophils # Man Lymphocytes # (Manual) PT ABG pH POC ABG pCO2 POC ABG pO2 ABG pO2 ABG O2 Saturation ABG Base Excess ABG Hemoglobin ABG Oxyhemoglobin ABG Potassium ABG Chloride ABG Glucose Oxyhemoglobin Carboxyhemoglobin Sodium Potassium Chloride Carbon Dioxide BUN Creatinine Glucose POC Glucose 320 H 297 H Hemoglobin A1c Lactic Acid Calcium Phosphorus Magnesium Transferrin AST ALT Alkaline Phosphatase Total Creatine Kinase CK-MB (CK-2) Serum Total Protein Total Protein Albumin Vyeyu-3-Qegvzjxrm Ihtfi-9-Ebuwheqth Gamma Globulins PEP Interpretation HDL Cholesterol TSH Arterial Blood Glucose Arterial Blood Ionized Calcium Urine WBC (Auto) > 182.0 H Urine Creatinine Urine Total Protein Crossmatch 04/29/21 04/29/21 04/30/21 21:58 23:35 04:00 WBC 11.4 H RBC 3.27 L Hgb 8.7 L Hct 27.5 L MCH 27 L RDW 16.6 H Plt Count Seg Neuts % (Manual) Lymphocytes % (Manual) Nucleated RBC % Seg Neutrophils # Man Lymphocytes # (Manual) PT ABG pH POC ABG pCO2 POC ABG pO2 ABG pO2 ABG O2 Saturation ABG Base Excess ABG Hemoglobin ABG Oxyhemoglobin ABG Potassium ABG Chloride ABG Glucose Oxyhemoglobin Carboxyhemoglobin Sodium Potassium Chloride Carbon Dioxide BUN Creatinine Glucose POC Glucose 260 H 254 H Hemoglobin A1c Lactic Acid Calcium Phosphorus Magnesium Transferrin AST ALT Alkaline Phosphatase Total Creatine Kinase CK-MB (CK-2) Serum Total Protein Total Protein Albumin Txvfe-6-Onevheydb Czxcn-2-Clhsekpae Gamma Globulins PEP Interpretation HDL Cholesterol TSH Arterial Blood Glucose Arterial Blood Ionized Calcium Urine WBC (Auto) Urine Creatinine Urine Total Protein Crossmatch 04/30/21 04/30/21 04/30/21 04:00 05:17 05:31 WBC RBC Hgb Hct MCH RDW Plt Count Seg Neuts % (Manual) Lymphocytes % (Manual) Nucleated RBC % Seg Neutrophils # Man Lymphocytes # (Manual) PT ABG pH 7.452 H POC ABG pCO2 30.5 L POC ABG pO2 54.5 L ABG pO2 ABG O2 Saturation ABG Base Excess ABG Hemoglobin 10.1 L ABG Oxyhemoglobin 87.4 L ABG Potassium 2.9 L ABG Chloride ABG Glucose 305 H Oxyhemoglobin Carboxyhemoglobin Sodium Potassium 3.1 L Chloride Carbon Dioxide BUN 79 H Creatinine 3.9 H Glucose 275 H POC Glucose 267 H Hemoglobin A1c Lactic Acid Calcium Phosphorus 5.60 H D Magnesium Transferrin AST ALT Alkaline Phosphatase Total Creatine Kinase CK-MB (CK-2) Serum Total Protein Total Protein Albumin Qigan-9-Cooylaywz Axmme-5-Acbiwulmj Gamma Globulins PEP Interpretation HDL Cholesterol TSH Arterial Blood Glucose 305 H Arterial Blood Ionized Calcium Urine WBC (Auto) Urine Creatinine Urine Total Protein Crossmatch 04/30/21 04/30/21 04/30/21 12:31 17:50 22:24 WBC RBC Hgb Hct MCH RDW Plt Count Seg Neuts % (Manual) Lymphocytes % (Manual) Nucleated RBC % Seg Neutrophils # Man Lymphocytes # (Manual) PT ABG pH POC ABG pCO2 POC ABG pO2 ABG pO2 ABG O2 Saturation ABG Base Excess ABG Hemoglobin ABG Oxyhemoglobin ABG Potassium ABG Chloride ABG Glucose Oxyhemoglobin Carboxyhemoglobin Sodium Potassium Chloride Carbon Dioxide BUN Creatinine Glucose POC Glucose 259 H 161 H 146 H Hemoglobin A1c Lactic Acid Calcium Phosphorus Magnesium Transferrin AST ALT Alkaline Phosphatase Total Creatine Kinase CK-MB (CK-2) Serum Total Protein Total Protein Albumin Seleu-2-Jzszgabsx Qimnc-8-Pxsjvylvl Gamma Globulins PEP Interpretation HDL Cholesterol TSH Arterial Blood Glucose Arterial Blood Ionized Calcium Urine WBC (Auto) Urine Creatinine Urine Total Protein Crossmatch 05/01/21 05/01/21 05/01/21 00:09 03:30 04:00 WBC 12.0 H RBC 3.08 L Hgb 8.1 L Hct 25.6 L MCH 26 L RDW 16.3 H Plt Count Seg Neuts % (Manual) Lymphocytes % (Manual) Nucleated RBC % Seg Neutrophils # Man Lymphocytes # (Manual) PT ABG pH 7.493 H POC ABG pCO2 POC ABG pO2 ABG pO2 ABG O2 Saturation ABG Base Excess ABG Hemoglobin 9.3 L ABG Oxyhemoglobin ABG Potassium ABG Chloride ABG Glucose 167 H Oxyhemoglobin Carboxyhemoglobin 0.4 L Sodium Potassium Chloride Carbon Dioxide BUN Creatinine Glucose POC Glucose 149 H Hemoglobin A1c Lactic Acid Calcium Phosphorus Magnesium Transferrin AST ALT Alkaline Phosphatase Total Creatine Kinase CK-MB (CK-2) Serum Total Protein Total Protein Albumin Nuoqp-3-Abbennodn Cpnps-9-Sjrpntflb Gamma Globulins PEP Interpretation HDL Cholesterol TSH Arterial Blood Glucose 167 H Arterial Blood Ionized Calcium Urine WBC (Auto) Urine Creatinine Urine Total Protein Crossmatch 05/01/21 05/01/21 05/01/21 04:00 05:48 11:49 WBC RBC Hgb Hct MCH RDW Plt Count Seg Neuts % (Manual) Lymphocytes % (Manual) Nucleated RBC % Seg Neutrophils # Man Lymphocytes # (Manual) PT ABG pH POC ABG pCO2 POC ABG pO2 ABG pO2 ABG O2 Saturation ABG Base Excess ABG Hemoglobin ABG Oxyhemoglobin ABG Potassium ABG Chloride ABG Glucose Oxyhemoglobin Carboxyhemoglobin Sodium Potassium 3.5 L Chloride Carbon Dioxide BUN 62 H Creatinine 3.3 H Glucose 179 H POC Glucose 197 H 167 H Hemoglobin A1c Lactic Acid Calcium 8.3 L Phosphorus Magnesium Transferrin AST ALT Alkaline Phosphatase Total Creatine Kinase CK-MB (CK-2) Serum Total Protein Total Protein Albumin Wqxue-4-Tnkebtuqw Cwztd-2-Numglmusp Gamma Globulins PEP Interpretation HDL Cholesterol TSH Arterial Blood Glucose Arterial Blood Ionized Calcium Urine WBC (Auto) Urine Creatinine Urine Total Protein Crossmatch 05/01/21 05/01/21 05/02/21 16:24 23:25 04:00 WBC 14.2 H RBC 2.61 L Hgb 6.9 L Hct 22.1 L MCH 27 L RDW 16.1 H Plt Count Seg Neuts % (Manual) Lymphocytes % (Manual) Nucleated RBC % Seg Neutrophils # Man Lymphocytes # (Manual) PT ABG pH POC ABG pCO2 POC ABG pO2 ABG pO2 ABG O2 Saturation ABG Base Excess ABG Hemoglobin ABG Oxyhemoglobin ABG Potassium ABG Chloride ABG Glucose Oxyhemoglobin Carboxyhemoglobin Sodium Potassium Chloride Carbon Dioxide BUN Creatinine Glucose POC Glucose 157 H 147 H Hemoglobin A1c Lactic Acid Calcium Phosphorus Magnesium Transferrin AST ALT Alkaline Phosphatase Total Creatine Kinase CK-MB (CK-2) Serum Total Protein Total Protein Albumin Sizqy-4-Vkvhhslhm Xzzhd-6-Vemrdxvtx Gamma Globulins PEP Interpretation HDL Cholesterol TSH Arterial Blood Glucose Arterial Blood Ionized Calcium Urine WBC (Auto) Urine Creatinine Urine Total Protein Crossmatch 05/02/21 05/02/21 05/02/21 04:00 04:34 05:23 WBC RBC Hgb Hct MCH RDW Plt Count Seg Neuts % (Manual) Lymphocytes % (Manual) Nucleated RBC % Seg Neutrophils # Man Lymphocytes # (Manual) PT ABG pH 7.487 H POC ABG pCO2 POC ABG pO2 78.6 L ABG pO2 ABG O2 Saturation ABG Base Excess ABG Hemoglobin 11.5 L ABG Oxyhemoglobin ABG Potassium ABG Chloride ABG Glucose 122 H Oxyhemoglobin Carboxyhemoglobin Sodium Potassium Chloride Carbon Dioxide BUN 49 H Creatinine 2.8 H Glucose 117 H POC Glucose 119 H Hemoglobin A1c Lactic Acid Calcium Phosphorus Magnesium Transferrin AST ALT Alkaline Phosphatase Total Creatine Kinase CK-MB (CK-2) Serum Total Protein Total Protein Albumin Bntxm-0-Iltujwrhq Kgaky-9-Uzulxnfny Gamma Globulins PEP Interpretation HDL Cholesterol TSH Arterial Blood Glucose 122 H Arterial Blood Ionized Calcium Urine WBC (Auto) Urine Creatinine Urine Total Protein Crossmatch 05/02/21 05/02/21 05/02/21 12:00 12:04 17:29 WBC RBC Hgb Hct MCH RDW Plt Count Seg Neuts % (Manual) Lymphocytes % (Manual) Nucleated RBC % Seg Neutrophils # Man Lymphocytes # (Manual) PT ABG pH POC ABG pCO2 POC ABG pO2 ABG pO2 ABG O2 Saturation ABG Base Excess ABG Hemoglobin ABG Oxyhemoglobin ABG Potassium ABG Chloride ABG Glucose Oxyhemoglobin Carboxyhemoglobin Sodium Potassium Chloride Carbon Dioxide BUN Creatinine Glucose POC Glucose 115 H 120 H Hemoglobin A1c Lactic Acid Calcium Phosphorus Magnesium Transferrin AST ALT Alkaline Phosphatase Total Creatine Kinase CK-MB (CK-2) Serum Total Protein Total Protein Albumin Reyra-5-Lwpkeynjh Fyuir-7-Gtjprkawa Gamma Globulins PEP Interpretation HDL Cholesterol TSH Arterial Blood Glucose Arterial Blood Ionized Calcium Urine WBC (Auto) Urine Creatinine Urine Total Protein Crossmatch See Detail 05/02/21 05/03/21 05/03/21 23:36 04:00 04:00 WBC 13.9 H RBC 3.22 L Hgb 8.7 L Hct 27.4 L MCH 27 L RDW 15.8 H Plt Count Seg Neuts % (Manual) Lymphocytes % (Manual) Nucleated RBC % Seg Neutrophils # Man Lymphocytes # (Manual) PT ABG pH POC ABG pCO2 POC ABG pO2 ABG pO2 ABG O2 Saturation ABG Base Excess ABG Hemoglobin ABG Oxyhemoglobin ABG Potassium ABG Chloride ABG Glucose Oxyhemoglobin Carboxyhemoglobin Sodium 146 H Potassium 3.5 L Chloride 107.5 H Carbon Dioxide BUN 40 H Creatinine 2.5 H Glucose 104 H POC Glucose 130 H Hemoglobin A1c Lactic Acid Calcium Phosphorus Magnesium Transferrin AST 53 H ALT Alkaline Phosphatase 149 H Total Creatine Kinase CK-MB (CK-2) Serum Total Protein Total Protein 5.2 L Albumin 1.5 L Mdztk-4-Jirhvdhpo Chlxs-4-Ebizhinxl Gamma Globulins PEP Interpretation HDL Cholesterol TSH Arterial Blood Glucose Arterial Blood Ionized Calcium Urine WBC (Auto) Urine Creatinine Urine Total Protein Crossmatch 05/03/21 05/04/21 05/04/21 17:26 01:24 04:48 WBC 14.3 H RBC 3.14 L Hgb 8.5 L Hct 26.3 L MCH 27 L RDW 15.8 H Plt Count Seg Neuts % (Manual) Lymphocytes % (Manual) Nucleated RBC % Seg Neutrophils # Man Lymphocytes # (Manual) PT ABG pH POC ABG pCO2 POC ABG pO2 ABG pO2 ABG O2 Saturation ABG Base Excess ABG Hemoglobin ABG Oxyhemoglobin ABG Potassium ABG Chloride ABG Glucose Oxyhemoglobin Carboxyhemoglobin Sodium Potassium Chloride Carbon Dioxide BUN Creatinine Glucose POC Glucose 123 H 146 H Hemoglobin A1c Lactic Acid Calcium Phosphorus Magnesium Transferrin AST ALT Alkaline Phosphatase Total Creatine Kinase CK-MB (CK-2) Serum Total Protein Total Protein Albumin Slzmp-0-Hwaxjzqrf Kjftk-3-Huohfutug Gamma Globulins PEP Interpretation HDL Cholesterol TSH Arterial Blood Glucose Arterial Blood Ionized Calcium Urine WBC (Auto) Urine Creatinine Urine Total Protein Crossmatch 05/04/21 05/04/21 05/04/21 04:48 05:15 11:24 WBC RBC Hgb Hct MCH RDW Plt Count Seg Neuts % (Manual) Lymphocytes % (Manual) Nucleated RBC % Seg Neutrophils # Man Lymphocytes # (Manual) PT ABG pH POC ABG pCO2 POC ABG pO2 ABG pO2 ABG O2 Saturation ABG Base Excess ABG Hemoglobin ABG Oxyhemoglobin ABG Potassium ABG Chloride ABG Glucose Oxyhemoglobin Carboxyhemoglobin Sodium Potassium 3.5 L Chloride Carbon Dioxide BUN 58 H Creatinine 3.4 H Glucose 168 H POC Glucose 162 H 145 H Hemoglobin A1c Lactic Acid Calcium Phosphorus 5.30 H Magnesium Transferrin AST ALT Alkaline Phosphatase Total Creatine Kinase CK-MB (CK-2) Serum Total Protein Total Protein Albumin Fiztx-3-Scfpdvpxf Ygisa-2-Pjsqrawbq Gamma Globulins PEP Interpretation HDL Cholesterol 24 L TSH Arterial Blood Glucose Arterial Blood Ionized Calcium Urine WBC (Auto) Urine Creatinine Urine Total Protein Crossmatch 05/04/21 05/04/21 05/05/21 16:01 23:32 04:00 WBC RBC Hgb Hct MCH RDW Plt Count Seg Neuts % (Manual) Lymphocytes % (Manual) Nucleated RBC % Seg Neutrophils # Man Lymphocytes # (Manual) PT ABG pH POC ABG pCO2 POC ABG pO2 ABG pO2 ABG O2 Saturation ABG Base Excess ABG Hemoglobin ABG Oxyhemoglobin ABG Potassium ABG Chloride ABG Glucose Oxyhemoglobin Carboxyhemoglobin Sodium Potassium 3.4 L Chloride Carbon Dioxide BUN 43 H Creatinine 2.7 H Glucose 124 H POC Glucose 148 H 134 H Hemoglobin A1c Lactic Acid Calcium 8.2 L Phosphorus Magnesium Transferrin AST ALT Alkaline Phosphatase Total Creatine Kinase CK-MB (CK-2) Serum Total Protein Total Protein Albumin Zukzf-8-Ohrbvecvz Nztyv-2-Pmsignfso Gamma Globulins PEP Interpretation HDL Cholesterol TSH Arterial Blood Glucose Arterial Blood Ionized Calcium Urine WBC (Auto) Urine Creatinine Urine Total Protein Crossmatch 05/05/21 05/06/21 05/06/21 05:14 00:01 04:00 WBC RBC Hgb Hct MCH RDW Plt Count Seg Neuts % (Manual) Lymphocytes % (Manual) Nucleated RBC % Seg Neutrophils # Man Lymphocytes # (Manual) PT ABG pH POC ABG pCO2 POC ABG pO2 ABG pO2 ABG O2 Saturation ABG Base Excess ABG Hemoglobin ABG Oxyhemoglobin ABG Potassium ABG Chloride ABG Glucose Oxyhemoglobin Carboxyhemoglobin Sodium Potassium 3.2 L Chloride Carbon Dioxide BUN 56 H Creatinine 3.0 H Glucose 110 H POC Glucose 120 H 120 H Hemoglobin A1c Lactic Acid Calcium 7.8 L Phosphorus 4.60 H Magnesium Transferrin AST ALT Alkaline Phosphatase Total Creatine Kinase CK-MB (CK-2) Serum Total Protein Total Protein Albumin Htqps-7-Nyhevtdcz Srmao-9-Xqcgsrgfs Gamma Globulins PEP Interpretation HDL Cholesterol TSH Arterial Blood Glucose Arterial Blood Ionized Calcium Urine WBC (Auto) Urine Creatinine Urine Total Protein Crossmatch 05/06/21 05/06/21 04:27 05:15 WBC RBC 3.03 L Hgb 8.3 L Hct 25.4 L MCH 27 L RDW Plt Count Seg Neuts % (Manual) Lymphocytes % (Manual) Nucleated RBC % Seg Neutrophils # Man Lymphocytes # (Manual) PT ABG pH POC ABG pCO2 POC ABG pO2 ABG pO2 ABG O2 Saturation ABG Base Excess ABG Hemoglobin ABG Oxyhemoglobin ABG Potassium ABG Chloride ABG Glucose Oxyhemoglobin Carboxyhemoglobin Sodium Potassium Chloride Carbon Dioxide BUN Creatinine Glucose POC Glucose 137 H Hemoglobin A1c Lactic Acid Calcium Phosphorus Magnesium Transferrin AST ALT Alkaline Phosphatase Total Creatine Kinase CK-MB (CK-2) Serum Total Protein Total Protein Albumin Gciox-6-Ptqulurjf Jnygu-8-Hkhfuogop Gamma Globulins PEP Interpretation HDL Cholesterol TSH Arterial Blood Glucose Arterial Blood Ionized Calcium Urine WBC (Auto) Urine Creatinine Urine Total Protein Crossmatch
--- NOTE | 2021-05-06 13:14 | Progress Note ---
Assessment and Plan Cultures: 04/21/2021 blood culture: No growth 04/21/2021 COVID-19 PCR: Negative 04/26/2021 sputum culture: Roselyn nonalbicans 04/29/2021 tracheal aspirate culture: Moderate growth of usual respiratory stanley 04/29/2021 blood culture: No growth 05/02/2021 urine culture: yeast A/P: 80-year-old female who is a halfway resident, with hypothyroidism, GERD, hyperlipidemia, schizophrenia, dementia was admitted on 04/20/2021 after being found unresponsive by the staff: #Septic shock: Likely from pneumonia and UTI. 04/29/2021 UA showed significant pyuria. Luther was changed. Typically candiduria does not need antifungal therapy especially since Luther was changed. However, given septic shock, treat with fluconazole 200 mg daily x 5 days #Acute respiratory failure: On the vent #Acute renal failure: Renally adjust antibiotics. On dialysis. #Acute metabolic encephalopathy: Initially related to severe hyponatremia which peaked at sodium of 179. #Acute CVA: neurology following. Recs: -continue IV meropenem, renally adjusted, D5 of 7 -fluconazole 200 mg daily x 5 days, D2 Juanita Darling MD, [facility] ([facility] O: [phone] F: [phone] Subjective Date of service: 05/06/21 Principal diagnosis: Acute respiratory failure Interval history: No fever. Remains on the vent. Remains off pressors. Objective - Exam Narrative Exam: Physical Exam: Constitutional: sedated, intubated, on the vent Head, Ears, Nose: Normocephalic, atraumatic. External ears, nose normal Eyes: Conjunctivae/corneas clear. No icterus. No ptosis. Neck: intubated Oral: intubated Cardiovascular: S1, S2 + Respiratory: AE fair bilaterally and equal GI: Soft, bowel sounds + Musculoskeletal: Anasarca + Skin: No rash or abscess Hem/Lymphatic: No palpable cervical or supraclavicular nodes. No lymphangitis Psych: no agitation Neurological: sedated, intubated, on the vent, exam limited - Constitutional Vitals: Vital Signs Temp Pulse Resp BP Pulse Ox 98 F 65 16 118/47 98 05/06/21 08:00 05/06/21 12:10 05/06/21 11:00 05/06/21 12:10 05/06/21 12:10 Temperature -Last 24 Hours Temperature 98 F Temperature 98.3 F Temperature 97.7 F Temperature 97.9 F Temperature 98.1 F Temperature 98 F - Labs CBC & Chem 7: 05/06/21 04:27 05/06/21 04:00 Labs: Abnormal lab results 04/20/21 05/06/21 05/06/21 Range/Units 22:12 00:01 04:00 RBC (3.65-5.03) M/mm3 Hgb (10.1-14.3) gm/dl Hct (30.3-42.9) % MCH (28-32) pg Potassium 3.2 L (3.6-5.0) mmol/L BUN 56 H (7-17) mg/dL Creatinine 3.0 H (0.6-1.2) mg/dL Glucose 110 H (65-100) mg/dL POC Glucose 554 H 120 H (70-105) mg/dL Calcium 7.8 L (8.4-10.2) mg/dL Phosphorus 4.60 H (2.5-4.5) mg/dL 05/06/21 05/06/21 Range/Units 04:27 05:15 RBC 3.03 L (3.65-5.03) M/mm3 Hgb 8.3 L (10.1-14.3) gm/dl Hct 25.4 L (30.3-42.9) % MCH 27 L (28-32) pg Potassium (3.6-5.0) mmol/L BUN (7-17) mg/dL Creatinine (0.6-1.2) mg/dL Glucose (65-100) mg/dL POC Glucose 137 H (70-105) mg/dL Calcium (8.4-10.2) mg/dL Phosphorus (2.5-4.5) mg/dL
[2021-05-06] MEDS ORDERED: BENZOCAINE 20% TOP SPRAY 0.5 ML UNIT DOSE MM ONE (14:08)
[2021-05-06] MEDS ORDERED: MIDAZOLAM 5 MG/5 ML INJ MDV IV ONE (14:52)
[2021-05-06] MEDS ORDERED: fentaNYL 100 MCG/2 ML INJ ONE (14:52)
[2021-05-06] MEDS ORDERED: fentaNYL 100 MCG/2 ML INJ IV ONE (15:08)
[2021-05-06] MEDS ORDERED: MIDAZOLAM 2 MG/2 ML INJ IV ONE (15:10)
--- NOTE | 2021-05-06 15:38 | Event Note ---
Date: 05/06/21 Cardiology is consulted for LINCOLN for stroke work-up. Patient is located at CCU [id number]. She is intubated. Procedure is consented with patient nephew Mr. Bolanos via [phone]. The procedure risks and benefits were explained to Mr. Bolanos; We had Mr. Bolanos's permission to proceed the LINCOLN. Time out was performed at 3 pm. We attempted to pass the LINCOLN probe down the esophagus under moderate sedation (Versed 2 mg iv and Fentanly 50 mcg iv). However, patient's BP dropped with sedation and she did not well cooperated with the probe insertion. We had to abort the procedure given high risks of hypotension and esophageal perforation. The CCU provider and patient's nephew were informed with the results. Please call us back after patient is extubated. We will consider to attempt again with anesthesiologist-assist sedation. Alternatively, patient can have cardiac CT with contrast for intracardiac thrombus evaluation.
[2021-05-06] MEDS ORDERED: ALBUMIN HUMAN 25% (25 GM/100 ML) INJ IV PRN (16:06)
[2021-05-06] MEDS ORDERED: SODIUM CHLORIDE 0.9% 100 ML IV PRN (16:06)
--- NOTE | 2021-05-06 18:32 | Progress Note ---
<TANYAHENRIETTA ShannonJericho - Last Filed: 05/06/21 18:28> Assessment and Plan Assessment and plan: This is a 80-year-old female [facility] resident with GERD, hypothyroidism, hyperlipidemia, schizophrenia and dementia admitted with hypothermia, hyponatremia, hypokalemia, lactic acidosis, acute kidney injury, rhabdomyolysis and hyperosmolar nonketotic state. Neuro: Acute CVA, acute metabolic encephalopathy, normal pressure hydrocephalus -CT head shows lateral ventricles and third ventricle dilation, raises possibility of normal pressure hydrocephalus -Neurology and neurosurgery consulted, appreciate recommendations -neurosurgery has no acute interventions -04/29 s/p spinal tap removal 24 mL, mental is unchanged -csf fluid showed {14 wbc,324 rbc,normal protein and glucose ,c/s is unremarkable so far} -MRI brain is remarkable for multiple ischemic event cortical as well as subcortical in both hemisphere and in all distribuation with slight petechial hemorrhage is noted findings is suggestive of possible embolic event with water shed infarct can not be totally excluded. -MRA/MRV completed-see chart for details - source of emboli is not found -LINCOLN tentatively not successful -ASA 81 and lipitor -LDL noted -PT/ST/OT consulted -Aspiration/seizure precautions -Maintain sleep-wake cycle -Avoid delirium -Correct electrolyte derangements -Hold off on restarting home antipsychotic medications when obtained -Risperidone 3 mg, Donepazil 5 mg Cardio: Hypotension -s/p Vasopressor support with Levophed -MAP goal above 65 -Midodrine 10 mg TID -Blood pressure monitoring per protocol -Home amlodipine 10 mg on hold Respiratory: Acute hypoxic respiratory failure -s/p Bipap and ventimask -s/p bronchoscopy on 04/26 -Intubated 04/26 with 7.5 oett at 22 lips -Am vent settings: AC rate 14, tidal volume 450, PEEP 6, FiO2 30% -see RT notes for titration -AM ABG noted -s/p racimec epi x2 04/22 and 04/23 -Supplemental oxygen as needed -SPO2 monitoring -Pulmonary hygiene -Repeat CXR shows increased interstitial prominence of densities in bilateral lungs GI: Hypoalbuminemia, transaminitis -Presented with transaminitis -Trend LFTs -Ntr consult for TF -FWF 140 ml Q 4 hr -24 hours +831 ml -HD today -BR: Senokot -PPI -Nutritional supplementation -BMS in place : Acute kidney injury likely secondary to vasomotor nephropathy, urinary retention, Hypokalemia, hyperphosphatemia -FeNA 0.50 indicating prerenal sate -Nephrology consulted, appreciate recommendations -HD initiated 04/27 -HD per nephrology -Luther catheter placed for strict intake and output; changed 05/02 -Avoid nephrotoxic medications -Trend BMP, CK -Renally dose medications -renal US WNL per read -May need to be initiated on phosphate binder ID: Sepsis likely 2/2 UTI and PNA -ID consulted, appreciate recommendations -COVID-19 PCR negative -04/26/2021 sputum culture: Roselyn nonalbicans -04/29/2021 UA showed significant pyuria. -UC Roselyn-> fluconazole -Lumbar puncture with CSF showing 14 WBC, 324 RBC, glucose 161, protein 51. -Abx per ID: IV meropenem, renally adjusted + fluconazole -Trend WBC and fever curve -f/u cultures Endo: s/p HHNK, h/o hypothyroidism -Restarted home levothyroxine (50 mcg q day) -s/p Insulin drip x2 -SSI -TSH 6.04, T4 0.93 -Avoid hypoglycemia Heme: Anemia -HIT (-) -Trend CBC -Transfuse to hemoglobin less than 7 -s/p 1 unit PRBC -SCD to bilateral lower extremities while in bed -BUE dopplar US negative for DVT The high probability of a clinically significant, sudden or life threatening deterioration of the [multi] system(s) required my full and direct attention, intervention and personal management. The aggregate critical care time was [60] minutes. This time is in addition to time spent performing reported procedures but includes the following: [x] Data Review and interpretation [x] Patient assessment and monitoring of vital signs [x] Documentation [x] Medication orders and management Disposition Plan: icu Total Time Spent with Patient (Minutes): 60 History Interval history: This is a 80-year-old female who was penitentiary resident at [place] with GERD, hypothyroidism, hyperlipidemia, schizophrenia and dementia presented to the emergency department on 04/20 after being found unresponsive by the staff via EMS. Per EMS glucose levels read as high. Work-up in the emergency department revealed severe hypernatremia, leukocytosis, metabolic acidosis, hyperchloremia, elevated BUN/creatinine, lactic acidosis and hyperglycemia. Patient was also hypothermic on admit. CT head showed findings suggestive of the possibility of normal pressure hydrocephalus. Patient was admitted to the hospitalist service with acute metabolic encephalopathy, diabetic hyperosmolar nonketotic state, acute kidney injury, hypernatremia, rhabdomyolysis and leukocytosis with consults to nephrology and [facility]. 04/21: Given 1 L LR bolus per nephrology and D5W increased to 125 mL's per hour, COVID-19 PCR pending, CXR and ABG ordered as patient was weaned from BiPAP to 3 L nasal cannula however was uptitrated back to nonrebreather. Will obtain blood cultures x2 given her leukocytosis and hypothermia. Replace potassium. Neurosurgery and neurology consulted and Luther catheter placed. 04/22: Improvement to sodium noted, slight hypokalemia which will be repleted, slight improvement to renal function, LFTs and rhabdomyolysis. Seen by neurosurgery today. Patient still making urine. transition to ssi and start TF as AG 15 04/23/2021: Given racemic epinephrine again due to stridor, continue IV fluids per nephrology, continue to trend sodium and BMP. 04/24/2021: /30 increased d/t hyperglycemia but recent BMP showed BG>300, gave additional 5 units IV insulin and ordered 5 units TID scheduled. However after IV insulin her PCOT was 400. Start on insulin gtt for hyperglycemia. Per RN she was not of IV D5 overnight d/t having one IV which was needed for emergency. Day RN did start dextrose. Remains with hyperglycemia. 04/25: Patient obtunded, withdrawal to pain only, on 50%Venti mask SPO2 abobe 92%. Plan to transition to SubQ insulin. Patient with mild hypernatremia this am, FWF added, will stop IVF for now. 04/26: Patient s/p intubation this am. Mentation is unchanged, plan for MRI brain today per NeuroSurg. Still hyperglycemic, hypernatremia improved, D5W D/katlyn, and basal insulin adjusted. 04/27: Bronch overnight. CXR with mild improvement. D/w Nephro plan for HD today, RIJ VasCath inserted. MRI on hold per [facility] patient is too unstable at this time, plan for possible spinal drained tomorrow to see if mentation will improve. 04/28: Tolerated HD overnight, only UF. Mentation remains the same. D/w CCM plan for possible large volume spinal tap under fluoroscopy today. Plan for possible HD again today. Continue FWF for elevated Na. 04/29: MARY overnight. Plan for spinal tap this am. febrile overnight with leukocytosis, remains on pressors and more tachycardic now. Will panculture patient, and empiric IV was initiated. Remains hyperglycemic, basal insulin adjusted. 04/30: Patient's mentation remains unchanged post spinal tap. Plan for possible MRI brain next week. Afebrile overnight and leukocytosis improved, However, vent settings are going up and this am ABG with hypoxia, this am CXR with worsening opacities. Patient with 3+ pitting edema. Continue HD per Nephro. Continue current empiric IV abx, f/u on culture data, might need to get ID on board if worsen. 05/01: Mentation is unchanged, still on pressors. Febrile this am, continue IV abx, ID consulted. 3L out yesterday, plan for HD again tomorrow. Plt count improved, might need to restart AC, will D/w CCM. 05/02: No change in mentation and she is now noted to be decorticating to pain -> MRI brain ordered. Scheduled for HD today. ID consult completed. 05/03: Neurology consulted given MRI findings of multiple acute CVAs, LINCOLN ordered, EEG pending, started on aspirin and Lipitor. updated POA 05/04: Received hemodialysis today, will schedule for LINCOLN today however HD was ongoing at the time neurology will obtain MRA brain and neck then consider LINCOLN, increasing midodrine to aid in weaning Levophed. 05/05: MRA/MRV completed today, urine culture grew Roselyn and was started on fluconazole, LINCOLN tentatively scheduled for tomorrow. Resume tube feeding and n.p.o. at midnight. 05/06: Patient was scheduled for LINCOLN which was attempted however patient became hypotensive and the procedure was aborted. She received HD today. No acute events reported overnight. Tube feedings resumed. Hospitalist Physical - Physical exam Narrative exam: General appearance: Present: no acute distress, other (Intubated) - EENT Eyes: Present: PERRL, EOM intact ENT: dentition normal - Neck Neck: Present: normal ROM - Respiratory Respiratory effort: normal Respiratory: bilateral: diminished - Cardiovascular Rhythm: regular Heart Sounds: Present: S1 & S2 - Extremities Extremities: no ischemia, pulses intact, pulses symmetrical, normal temperature, normal color Peripheral Pulses: within normal limits - Abdominal General gastrointestinal: soft, non-tender, non-distended, normal bowel sounds - Integumentary Integumentary: Present: warm, dry - Psychiatric Psychiatric: other - Neurologic Neurologic: other (Pupils equal round reactive, opens eyes and attempts to track but does not follow commands.) - Allied Health Allied health notes reviewed: nursing, RT, social work - Constitutional Vitals: Temp Pulse Resp BP Pulse Ox 97.7 F 77 15 115/68 99 05/06/21 16:00 05/06/21 18:00 05/06/21 17:30 05/06/21 18:00 05/06/21 17:30 General appearance: Present: no acute distress, other (Intubated) HEART Score - HEART Score Troponin: Troponin T 0.021 ng/mL (0.00-0.029) 04/20/21 17:10 Results - Labs CBC & Chem 7: 05/06/21 04:27 05/06/21 04:00 Labs: Laboratory Last Values WBC 10.8 K/mm3 (4.5-11.0) 05/06/21 04:27 RBC 3.03 M/mm3 (3.65-5.03) L 05/06/21 04:27 Hgb 8.3 gm/dl (10.1-14.3) L 05/06/21 04:27 Hct 25.4 % (30.3-42.9) L 05/06/21 04:27 MCV 84 fl (79-97) 05/06/21 04:27 MCH 27 pg (28-32) L 05/06/21 04:27 MCHC 33 % (30-34) 05/06/21 04:27 RDW 15.2 % (13.2-15.2) 05/06/21 04:27 Plt Count 269 K/mm3 (140-440) 05/06/21 04:27 Add Manual Diff Complete 04/28/21 04:00 Total Counted 100 04/28/21 04:00 Seg Neutrophils % Human Services Care Specialist 04/28/21 04:00 Seg Neuts % (Manual) 77.0 % (40.0-70.0) H 04/26/21 09:33 Band Neutrophils % 2.0 % 04/28/21 04:00 Lymphocytes % (Manual) 1.0 % (13.4-35.0) L 04/28/21 04:00 Reactive Lymphs % (Man) 0 % 04/28/21 04:00 Monocytes % (Manual) 1.0 % (0.0-7.3) 04/28/21 04:00 Eosinophils % (Manual) 3.0 % (0.0-4.3) 04/28/21 04:00 Metamyelocytes % 1.0 % 04/28/21 04:00 Myelocytes % 0 % 04/28/21 04:00 Promyelocytes % 0 % 04/28/21 04:00 Blast Cells % 0 % 04/28/21 04:00 Nucleated RBC % 4.0 % (0.0-0.9) H 04/28/21 04:00 Seg Neutrophils # Man 11.6 K/mm3 (1.8-7.7) H 04/28/21 04:00 Band Neutrophils # 0.3 K/mm3 04/28/21 04:00 Lymphocytes # (Manual) 0.1 K/mm3 (1.2-5.4) L 04/28/21 04:00 Abs React Lymphs (Man) 0.0 K/mm3 04/28/21 04:00 Monocytes # (Manual) 0.1 K/mm3 (0.0-0.8) 04/28/21 04:00 Eosinophils # (Manual) 0.4 K/mm3 (0.0-0.4) 04/28/21 04:00 Basophils # (Manual) 0.0 K/mm3 (0.0-0.1) 04/28/21 04:00 Metamyelocytes # 0.1 K/mm3 04/28/21 04:00 Myelocytes # 0.0 K/mm3 04/28/21 04:00 Promyelocytes # 0.0 K/mm3 04/28/21 04:00 Blast Cells # 0.0 K/mm3 04/28/21 04:00 WBC Morphology Not Reportable 04/28/21 04:00 Hypersegmented Neuts Not Reportable 04/28/21 04:00 Hyposegmented Neuts Not Reportable 04/28/21 04:00 Hypogranular Neuts Not Reportable 04/28/21 04:00 Smudge Cells Not Reportable 04/28/21 04:00 Toxic Granulation Not Reportable 04/28/21 04:00 Toxic Vacuolation Not Reportable 04/28/21 04:00 Dohle Bodies Not Reportable 04/28/21 04:00 Pelger-Huet Anomaly Not Reportable 04/28/21 04:00 Moni Rods Not Reportable 04/28/21 04:00 Platelet Estimate Consistent w auto 04/28/21 04:00 Clumped Platelets Not Reportable 04/28/21 04:00 Plt Clumps, EDTA Not Reportable 04/28/21 04:00 Large Platelets Few 04/28/21 04:00 Giant Platelets Not Reportable 04/28/21 04:00 Platelet Satelliting Not Reportable 04/28/21 04:00 Plt Morphology Comment Not Reportable 04/28/21 04:00 RBC Morphology Not Reportable 04/28/21 04:00 Dimorphic RBCs Not Reportable 04/28/21 04:00 Polychromasia Not Reportable 04/28/21 04:00 Hypochromasia Not Reportable 04/28/21 04:00 Poikilocytosis Not Reportable 04/28/21 04:00 Anisocytosis Not Reportable 04/28/21 04:00 Microcytosis Not Reportable 04/28/21 04:00 Macrocytosis Not Reportable 04/28/21 04:00 Spherocytes Not Reportable 04/28/21 04:00 Pappenheimer Bodies Not Reportable 04/28/21 04:00 Sickle Cells Not Reportable 04/28/21 04:00 Target Cells 1+ 04/28/21 04:00 Tear Drop Cells Not Reportable 04/28/21 04:00 Ovalocytes Not Reportable 04/28/21 04:00 Helmet Cells Not Reportable 04/28/21 04:00 Parkinson-[place] Bodies Not Reportable 04/28/21 04:00 [place] Rings Not Reportable 04/28/21 04:00 [place] Cells Not Reportable 04/28/21 04:00 Bite Cells Not Reportable 04/28/21 04:00 Crenated Cell Not Reportable 04/28/21 04:00 Elliptocytes Not Reportable 04/28/21 04:00 Acanthocytes (Spur) Not Reportable 04/28/21 04:00 Rouleaux Not Reportable 04/28/21 04:00 Hemoglobin C Crystals Not Reportable 04/28/21 04:00 Schistocytes Not Reportable 04/28/21 04:00 Malaria parasites Not Reportable 04/28/21 04:00 Herrera Bodies Not Reportable 04/28/21 04:00 Hem Pathologist Commnt No 04/28/21 04:00 PT 15.3 Sec. (12.2-14.9) H 04/28/21 05:00 INR 1.09 (0.87-1.13) 04/28/21 05:00 APTT 36.6 Sec. (24.2-36.6) 04/28/21 05:00 Heparin Anti-Xa, Unfract Negative (Negative) 04/24/21 17:29 ABG pH 7.487 (7.320-7.450) H 05/02/21 04:34 POC ABG pCO2 35.3 mmHg (32.0-48.0) 05/02/21 04:34 ABG pCO2 31.6 mm Hg 04/21/21 15:47 POC ABG pO2 78.6 mmHg (83-108) L 05/02/21 04:34 ABG pO2 168.1 mm Hg (80.0-90.0) H 04/21/21 15:47 POC ABG HCO3 26.1 05/02/21 04:34 ABG HCO3 23.3 mmol/L (20.0-26.0) 04/21/21 15:47 ABG O2 Saturation 96.0 (0-100) 05/02/21 04:34 ABG O2 Content 12.7 (0.0-44) 04/21/21 15:47 POC ABG Base Excess 2.9 05/02/21 04:34 ABG Base Excess 0.3 mmol/L (-2.0-3.0) 04/21/21 15:47 ABG Hemoglobin 11.5 (12.0-17.5) L 05/02/21 04:34 ABG Oxyhemoglobin 95.1 (94-98) 05/02/21 04:34 ABG Carboxyhemoglobin 1.0 % (0.0-5.0) 04/21/21 15:47 ABG Methemoglobin 0.3 (0.0-1.5) 05/02/21 04:34 ABG Sodium 138.6 mmol/L (136.0-145.0) 05/02/21 04:34 ABG Potassium 3.4 mmol/L (3.40-4.50) 05/02/21 04:34 ABG Chloride 105.0 mmol/L (98-107) 05/02/21 04:34 ABG Glucose 122 mg/dL (65-95) H 05/02/21 04:34 VBG pH 7.397 (7.320-7.420) 04/20/21 17:10 Oxyhemoglobin 97.5 % (95.0-99.0) 04/21/21 15:47 Carboxyhemoglobin 0.6 (0.5-1.5) 05/02/21 04:34 FiO2 100 % 04/21/21 15:47 FiO2 % 40.0 05/02/21 04:34 Sodium 141 mmol/L (137-145) 05/06/21 04:00 Potassium 3.2 mmol/L (3.6-5.0) L 05/06/21 04:00 Chloride 103.2 mmol/L (98-107) 05/06/21 04:00 Carbon Dioxide 26 mmol/L (22-30) 05/06/21 04:00 Anion Gap 15 mmol/L 05/06/21 04:00 BUN 56 mg/dL (7-17) H 05/06/21 04:00 Creatinine 3.0 mg/dL (0.6-1.2) H 05/06/21 04:00 Estimated GFR 18 ml/min 05/06/21 04:00 BUN/Creatinine Ratio 19 % 05/06/21 04:00 Glucose 110 mg/dL (65-100) H 05/06/21 04:00 POC Glucose 132 mg/dL (70-105) H 05/06/21 17:37 Hemoglobin A1c 17.1 % (4-6) H 04/22/21 15:55 Lactic Acid 1.90 mmol/L (0.7-2.0) 04/20/21 19:56 Calcium 7.8 mg/dL (8.4-10.2) L 05/06/21 04:00 Phosphorus 4.60 mg/dL (2.5-4.5) H 05/06/21 04:00 Magnesium 1.70 mg/dL (1.7-2.3) 05/06/21 04:00 Iron 62 ug/dL (37-170) 04/24/21 17:29 TIBC 285 mcg/dL (250-450) 04/24/21 17:29 % Saturation 21.75 % 04/24/21 17:29 Transferrin 112 mg/dl (192-382) L 04/24/21 17:29 Total Bilirubin 0.20 mg/dL (0.1-1.2) 05/03/21 04:00 Direct Bilirubin < 0.2 mg/dL (0-0.2) 04/29/21 04:00 Indirect Bilirubin 0.1 mg/dL 04/29/21 04:00 AST 53 units/L (5-40) H 05/03/21 04:00 ALT 55 units/L (7-56) 05/03/21 04:00 Alkaline Phosphatase 149 units/L (35-129) H 05/03/21 04:00 Ammonia 29.0 umol/L (25-60) 04/20/21 17:10 Total Creatine Kinase 1000 units/L (30-135) H 04/27/21 07:43 CK-MB (CK-2) 36.0 ng/mL (0.0-4.0) H 04/20/21 17:10 CK-MB (CK-2) Rel Index 0.9 (0-4) 04/20/21 17:10 Troponin T 0.021 ng/mL (0.00-0.029) 04/20/21 17:10 Serum Total Protein 5.5 g/dL (6.1-8.1) L 04/22/21 08:59 Total Protein 5.2 g/dL (6.3-8.2) L 05/03/21 04:00 Albumin 1.5 g/dL (3.9-5) L 05/03/21 04:00 Albumin/Globulin Ratio 0.4 % 05/03/21 04:00 Ywoee-0-Dskixdmeo 0.6 g/dL (0.2-0.3) H 04/22/21 08:59 Ncfjq-3-Hkmhmbdgw 1.0 g/dL (0.5-0.9) H 04/22/21 08:59 Beta Globulins 0.3 g/dL (0.2-0.5) 04/22/21 08:59 Gamma Globulins 0.6 g/dL (0.8-1.7) L 04/22/21 08:59 Abnorm Protein Band 1 see below 04/22/21 08:59 PEP Interpretation see below H 04/22/21 08:59 Triglycerides 80 mg/dL (2-149) 05/04/21 04:48 Cholesterol 90 mg/dL (50-199) 05/04/21 04:48 LDL Cholesterol Direct 51 mg/dL (50-130) 05/04/21 04:48 HDL Cholesterol 24 mg/dL (40-59) L 05/04/21 04:48 Cholesterol/HDL Ratio 3.75 % 05/04/21 04:48 Serotonin Release Assay See scanned result 04/24/21 17:29 TSH 6.040 mlU/mL (0.270-4.200) H 04/20/21 17:10 Free T4 0.93 ng/dL (0.76-1.46) 04/20/21 17:10 Arterial Blood Glucose 122 mg/dL (65-95) H 05/02/21 04:34 Arterial Blood Ionized Calcium 4.5 mg/dL (4.6-5.3) L 04/28/21 05:18 Urine Color Yellow (Yellow) 04/29/21 13:30 Urine Turbidity Turbid (Clear) 04/29/21 13:30 Urine pH 5.0 (5.0-7.0) 04/29/21 13:30 Ur Specific [place] 1.010 (1.003-1.030) 04/29/21 13:30 Urine Protein 100 mg/dl mg/dL (Negative) 04/29/21 13:30 Urine Glucose (UA) 150 mg/dL (Negative) 04/29/21 13:30 Urine Ketones Neg mg/dL (Negative) 04/29/21 13:30 Urine Blood Lg (Negative) 04/29/21 13:30 Urine Nitrite Neg (Negative) 04/29/21 13:30 Urine Bilirubin Neg (Negative) 04/29/21 13:30 Urine Urobilinogen < 2.0 mg/dL (<2.0) 04/29/21 13:30 Ur Leukocyte Esterase Lg (Negative) 04/29/21 13:30 Urine WBC (Auto) > 182.0 /HPF (0.0-6.0) H 04/29/21 13:30 Urine RBC (Auto) > 182.0 /HPF (0.0-6.0) 04/29/21 13:30 U Epithel Cells (Auto) 4.0 /HPF (0-13.0) 04/29/21 13:30 Urine WBC Clumps 3+ /HPF 04/29/21 13:30 Urine Mucus Few /HPF 04/29/21 13:30 Urine Yeast (Budding) 3+ /HPF 04/29/21 13:30 Urine Osmolality 446 Mosm/kg 04/21/21 08:01 Urine Creatinine 44.3 mg/dL (0.1-20.0) H 04/21/21 08:01 Urine Sodium 71 mmol/L 04/21/21 08:01 Urine Total Protein 12 mg/dL (5-11.8) H 04/21/21 08:01 CSF Appearance Clear 04/29/21 11:45 CSF Color Colorless 04/29/21 11:45 CSF WBC 14 /mm3 (1-10) 04/29/21 11:45 CSF RBC 324 /mm3 (0-0) 04/29/21 11:45 CSF Seg Neutrophils 50.0 % (0-6) 04/29/21 11:45 CSF Lymphocytes % 40.0 % (40-80) 04/29/21 11:45 CSF Reactive Lymphs Not Reportable 04/29/21 11:45 CSF Monocytes % 10.0 % (15-45) 04/29/21 11:45 CSF Eosinophils % Not Reportable 04/29/21 11:45 CSF Basophils Not Reportable 04/29/21 11:45 CSF Pathologist Review C 04/29/21 11:45 CSF Glucose 161 mg/dL 04/29/21 11:45 CSF Total Protein 51 mg/dL 04/29/21 11:45 Plasma/Serum Alcohol < 0.01 % (0-0.07) 04/20/21 17:10 Heparin-induced Plt Ab Negative (Negative) 04/24/21 17:29 UF Heparin High Dose 1 % Release 04/24/21 17:29 EFE UFH Low Dose 0.1 0 % Release 04/24/21 17:29 EFE UFH Low Dose 0.5 0 % Release 04/24/21 17:29 Coronavirus (PCR) Negative (Negative) 04/21/21 Unknown Hepatitis A IgM Ab Non-reactive (NonReactive) 04/27/21 12:49 Hep Bs Antigen Nonreactive (Negative) 04/27/21 12:49 Hep B Core IgM Ab Non-reactive (NonReactive) 04/27/21 12:49 Hepatitis C Antibody Non-reactive (NonReactive) 04/27/21 12:49 Blood Type O POSITIVE 05/02/21 12:00 Antibody Screen Negative 05/02/21 12:00 Crossmatch See Detail 05/02/21 12:00 Luther/IV: Voiding Method Indwelling Catheter Active Medications - Current Medications Current Medications: Generic Name Dose Route Start Last Admin Trade Name Freq PRN Reason Stop Dose Admin Acetaminophen 650 mg 04/20/21 21:31 05/01/21 18:15 Acetaminophen 325 Mg Tab PO 650 mg Q4H PRN Administration Pain MILD(1-3)/Fever >100.5/TURCIOS Albumin Human 25 gm 05/06/21 16:06 05/06/21 16:21 Albumin Human 25% (25 Gm/100 Ml) Inj IV 25 gm MITCH PRN Administration Hypotension Albuterol 2.5 mg 04/22/21 14:49 04/23/21 15:18 Albuterol 2.5 Mg/3 Ml Nebu IH 2.5 mg Q4HRT PRN Administration Shortness Of Breath Lipase/Protease/Amylase 1 each 04/25/21 14:13 Lipase 10,500/Protease 25,000/Amylase 43,750 (Units) Dr Vasquez FEEDTUBE PRN PRN For Clogged Feeding Tube Aspirin 81 mg 05/04/21 10:00 05/06/21 09:19 Aspirin 81 Mg Tab Chew FEEDTUBE 81 mg QDAY AZIZA Administration Atorvastatin Calcium 40 mg 05/04/21 22:00 05/05/21 21:30 Atorvastatin 40 Mg Tab FEEDTUBE 40 mg QHS AZIZA Administration Dextrose 50 ml 04/24/21 11:36 Dextrose 50% In Water (25gm) 50 Ml Syringe IV Q30MIN PRN Hypoglycemia Protocol Famotidine 10 mg 04/27/21 10:00 05/06/21 09:19 Famotidine 10 Mg Tab FEEDTUBE 10 mg BID AZIZA Administration Hydralazine HCl 10 mg 04/24/21 21:22 Hydralazine 20 Mg/1 Ml Inj IV Q4HR PRN elevated BP Hydrophilic Ointment 1 applic 04/26/21 11:16 Lip Therapy Vaseline TP Q2HR PRN Dry Lips NORepinephrine/NS 8 MG-250 ML 8 mg in 250 mls @ 3.75 mls/hr 04/26/21 16:00 05/04/21 21:34 Norepinephrine/Ns 8 Mg-250 Ml (Double Conc) IV 0 mcg/min TITRATE AZIZA 0 mls/hr Titration Protocol 2 MCG/MIN MEROPENEM/NS 1 GRAM/100 ML 1 gram in 100 mls @ 100 mls/hr 05/03/21 15:00 05/05/21 15:50 Merrem/Ns 1 Gram/100 Ml IV 05/08/21 15:59 100 mls/hr 1500 AZIZA Administration Protocol Sodium Chloride 100 mls @ 999 mls/hr 05/04/21 11:30 Nacl 0.9% IV MITCH PRN Hypotension Fluconazole 200 mg in 100 mls @ 100 mls/hr 05/05/21 15:00 05/05/21 15:50 Diflucan IV 05/10/21 14:59 100 mls/hr Q24H AZIZA Administration Protocol Sodium Chloride 100 mls @ 999 mls/hr 05/06/21 16:06 Nacl 0.9% IV MITCH PRN Hypotension Insulin Human Lispro 0 unit 04/25/21 18:00 05/06/21 12:58 Insulin Lispro 100 Unit/Ml SUB-Q Not Given Q6HR [facility] Protocol Levothyroxine Sodium 50 mcg 05/03/21 06:00 05/06/21 05:37 Levothyroxine 50 Mcg Tab PO 50 mcg DAILY@0600 AZIZA Administration Lorazepam 1 mg 04/26/21 11:15 04/30/21 23:00 Lorazepam 2 Mg/Ml Vial IV 1 mg Q4H PRN Administration Sedation Metoclopramide HCl 5 mg 04/20/21 21:31 Metoclopramide 10 Mg/2 Ml Inj IV Q6H PRN Nausea And Vomiting Midodrine 10 mg 05/04/21 14:00 05/06/21 08:58 Midodrine 5 Mg Tab PO 10 mg TID AZIZA Administration Multi-Ingred Cream/Lotion/Oil/Oint 1 applic 04/26/21 11:16 Mineral Oil/Petrolatum, White Ophth Oint 3.5 Gm OU Q4HR PRN Dry Eye(s) Ondansetron HCl 4 mg 04/20/21 21:31 Ondansetron 4 Mg/2 Ml Inj IV Q8H PRN Nausea And Vomiting Senna/Docusate Sodium 1 tab 04/26/21 22:00 05/06/21 10:58 Sennosides/Docusate Sodium 8.6/50 Mg Tab FEEDTUBE Not Given BID AZIZA Simple Syrup 15 ml 04/25/21 14:13 Simple Syrup 15 Ml FEEDTUBE PRN PRN Hypoglycemia Simple Syrup 30 ml 04/25/21 14:13 Simple Syrup 15 Ml FEEDTUBE PRN PRN Hypoglycemia Sodium Bicarbonate 325 mg 04/25/21 14:13 04/27/21 13:00 Sodium Bicarbonate 325 Mg Tab FEEDTUBE 325 mg PRN PRN Administration For Clogged Feeding Tube Sodium Bicarbonate 1,300 mg 04/27/21 14:00 05/06/21 17:57 Sodium Bicarbonate 650 Mg Tab PO Not Given TID AZIZA Sodium Chloride 10 ml 04/20/21 22:00 05/06/21 09:20 Sodium Chloride 0.9% 10 Ml Flush Syringe IV 10 ml BID AZIZA Administration Sodium Chloride 10 ml 04/20/21 21:31 Sodium Chloride 0.9% 10 Ml Flush Syringe IV PRN PRN LINE FLUSH Nutrition/Malnutrition Assess - Dietary Evaluation Nutrition/Malnutrition Findings: Nutrition Notes Start: 04/21/21 12:15 Freq: Status: Active Protocol: Document 05/04/21 16:15 JOSE (Rec: 05/04/21 16:26 JOSE [id number]) Nutrition Notes Initial or Follow up Brief Note Current Diet TF-Nepro w/CARBSTEADY @ 32 ml/ hr (since 04/29). Height 5 ft 2 in Weight 72.4 kg [place] Body Weight (kg) 50.00 BMI 29.2 Weight change and time frame No body weight change reported . Weight Status Overweight Subjective/Other Information RD consult for routine F/U on TF tolerance. TF continues as prescribed, therefore, well tolerated. Percent of energy/protein needs met: Prescribed TF-Nepro w/ CARBSTEADY @ 32 ml/hr provides for energy/protein needs (1, 389 Kcal/63 g) during LOS, 100 % Kcal; 72% AA. Current % PO Other Minimum of two criteria No #1 Nutrition Diagnosis Inadequate oral intake Diagnosis Progress(for reassessment Continues documentation) Nutrition Intervention Nutrition Support: Continue TF to Nepro w/ CARBSTEADY @ 32 ml/hr. Flush: 140 ml water Q 4 hr, or as per MD. % RDI: 100% Kcal; 72% AA. Goal #1 Provide at least 75% of energy /protein needs through Enteral Feeding during LOS. Follow-Up By: 05/11/21 Additional Comments Continue monitoring TF tolerance and BM. <TACHO RUBALCAVA - Last Filed: 05/14/21 13:11> Assessment and Plan Assessment and plan: I saw and evaluated the patient. Discussed with the nurse practitioner and agree with their findings and plan as documented in this note. Hospitalist Physical - Constitutional Vitals: Temp Pulse Resp BP Pulse Ox 99.9 F H 102 H 23 108/55 100 05/14/21 11:22 05/14/21 12:31 05/14/21 12:31 05/14/21 12:31 05/14/21 12:31 HEART Score - HEART Score Troponin: Troponin T 0.021 ng/mL (0.00-0.029) 04/20/21 17:10 Results - Labs CBC & Chem 7: 05/14/21 04:43 05/14/21 04:43 Labs: Laboratory Last Values WBC 10.1 K/mm3 (4.5-11.0) 05/14/21 04:43 RBC 3.02 M/mm3 (3.65-5.03) L 05/14/21 04:43 Hgb 8.3 gm/dl (10.1-14.3) L 05/14/21 04:43 Hct 25.6 % (30.3-42.9) L 05/14/21 04:43 MCV 85 fl (79-97) 05/14/21 04:43 MCH 28 pg (28-32) 05/14/21 04:43 MCHC 33 % (30-34) 05/14/21 04:43 RDW 15.5 % (13.2-15.2) H 05/14/21 04:43 Plt Count 482 K/mm3 (140-440) H 05/14/21 04:43 Add Manual Diff Complete 04/28/21 04:00 Total Counted 100 04/28/21 04:00 Seg Neutrophils % Human Services Care Specialist 04/28/21 04:00 Seg Neuts % (Manual) 77.0 % (40.0-70.0) H 04/26/21 09:33 Band Neutrophils % 2.0 % 04/28/21 04:00 Lymphocytes % (Manual) 1.0 % (13.4-35.0) L 04/28/21 04:00 Reactive Lymphs % (Man) 0 % 04/28/21 04:00 Monocytes % (Manual) 1.0 % (0.0-7.3) 04/28/21 04:00 Eosinophils % (Manual) 3.0 % (0.0-4.3) 04/28/21 04:00 Metamyelocytes % 1.0 % 04/28/21 04:00 Myelocytes % 0 % 04/28/21 04:00 Promyelocytes % 0 % 04/28/21 04:00 Blast Cells % 0 % 04/28/21 04:00 Nucleated RBC % 4.0 % (0.0-0.9) H 04/28/21 04:00 Seg Neutrophils # Man 11.6 K/mm3 (1.8-7.7) H 04/28/21 04:00 Band Neutrophils # 0.3 K/mm3 04/28/21 04:00 Lymphocytes # (Manual) 0.1 K/mm3 (1.2-5.4) L 04/28/21 04:00 Abs React Lymphs (Man) 0.0 K/mm3 04/28/21 04:00 Monocytes # (Manual) 0.1 K/mm3 (0.0-0.8) 04/28/21 04:00 Eosinophils # (Manual) 0.4 K/mm3 (0.0-0.4) 04/28/21 04:00 Basophils # (Manual) 0.0 K/mm3 (0.0-0.1) 04/28/21 04:00 Metamyelocytes # 0.1 K/mm3 04/28/21 04:00 Myelocytes # 0.0 K/mm3 04/28/21 04:00 Promyelocytes # 0.0 K/mm3 04/28/21 04:00 Blast Cells # 0.0 K/mm3 04/28/21 04:00 WBC Morphology Not Reportable 04/28/21 04:00 Hypersegmented Neuts Not Reportable 04/28/21 04:00 Hyposegmented Neuts Not Reportable 04/28/21 04:00 Hypogranular Neuts Not Reportable 04/28/21 04:00 Smudge Cells Not Reportable 04/28/21 04:00 Toxic Granulation Not Reportable 04/28/21 04:00 Toxic Vacuolation Not Reportable 04/28/21 04:00 Dohle Bodies Not Reportable 04/28/21 04:00 Pelger-Huet Anomaly Not Reportable 04/28/21 04:00 Moni Rods Not Reportable 04/28/21 04:00 Platelet Estimate Consistent w auto 04/28/21 04:00 Clumped Platelets Not Reportable 04/28/21 04:00 Plt Clumps, EDTA Not Reportable 04/28/21 04:00 Large Platelets Few 04/28/21 04:00 Giant Platelets Not Reportable 04/28/21 04:00 Platelet Satelliting Not Reportable 04/28/21 04:00 Plt Morphology Comment Not Reportable 04/28/21 04:00 RBC Morphology Not Reportable 04/28/21 04:00 Dimorphic RBCs Not Reportable 04/28/21 04:00 Polychromasia Not Reportable 04/28/21 04:00 Hypochromasia Not Reportable 04/28/21 04:00 Poikilocytosis Not Reportable 04/28/21 04:00 Anisocytosis Not Reportable 04/28/21 04:00 Microcytosis Not Reportable 04/28/21 04:00 Macrocytosis Not Reportable 04/28/21 04:00 Spherocytes Not Reportable 04/28/21 04:00 Pappenheimer Bodies Not Reportable 04/28/21 04:00 Sickle Cells Not Reportable 04/28/21 04:00 Target Cells 1+ 04/28/21 04:00 Tear Drop Cells Not Reportable 04/28/21 04:00 Ovalocytes Not Reportable 04/28/21 04:00 Helmet Cells Not Reportable 04/28/21 04:00 Parkinson-[place]and Bodies Not Reportable 04/28/21 04:00 [place] Rings Not Reportable 04/28/21 04:00 [place] Cells Not Reportable 04/28/21 04:00 Bite Cells Not Reportable 04/28/21 04:00 Crenated Cell Not Reportable 04/28/21 04:00 Elliptocytes Not Reportable 04/28/21 04:00 Acanthocytes (Spur) Not Reportable 04/28/21 04:00 Rouleaux Not Reportable 04/28/21 04:00 Hemoglobin C Crystals Not Reportable 04/28/21 04:00 Schistocytes Not Reportable 04/28/21 04:00 Malaria parasites Not Reportable 04/28/21 04:00 Herrera Bodies Not Reportable 04/28/21 04:00 Hem Pathologist Commnt No 04/28/21 04:00 PT 14.7 Sec. (12.2-14.9) 05/13/21 04:24 INR 1.04 (0.87-1.13) 05/13/21 04:24 APTT 36.6 Sec. (24.2-36.6) 04/28/21 05:00 Heparin Anti-Xa, Unfract Negative (Negative) 04/24/21 17:29 ABG pH 7.487 (7.320-7.450) H 05/02/21 04:34 POC ABG pCO2 35.3 mmHg (32.0-48.0) 05/02/21 04:34 ABG pCO2 31.6 mm Hg 04/21/21 15:47 POC ABG pO2 78.6 mmHg (83-108) L 05/02/21 04:34 ABG pO2 168.1 mm Hg (80.0-90.0) H 04/21/21 15:47 POC ABG HCO3 26.1 05/02/21 04:34 ABG HCO3 23.3 mmol/L (20.0-26.0) 04/21/21 15:47 ABG O2 Saturation 96.0 (0-100) 05/02/21 04:34 ABG O2 Content 12.7 (0.0-44) 04/21/21 15:47 POC ABG Base Excess 2.9 05/02/21 04:34 ABG Base Excess 0.3 mmol/L (-2.0-3.0) 04/21/21 15:47 ABG Hemoglobin 11.5 (12.0-17.5) L 05/02/21 04:34 ABG Oxyhemoglobin 95.1 (94-98) 05/02/21 04:34 ABG Carboxyhemoglobin 1.0 % (0.0-5.0) 04/21/21 15:47 ABG Methemoglobin 0.3 (0.0-1.5) 05/02/21 04:34 ABG Sodium 138.6 mmol/L (136.0-145.0) 05/02/21 04:34 ABG Potassium 3.4 mmol/L (3.40-4.50) 05/02/21 04:34 ABG Chloride 105.0 mmol/L (98-107) 05/02/21 04:34 ABG Glucose 122 mg/dL (65-95) H 05/02/21 04:34 VBG pH 7.397 (7.320-7.420) 04/20/21 17:10 Oxyhemoglobin 97.5 % (95.0-99.0) 04/21/21 15:47 Carboxyhemoglobin 0.6 (0.5-1.5) 05/02/21 04:34 FiO2 100 % 04/21/21 15:47 FiO2 % 40.0 05/02/21 04:34 Sodium 138 mmol/L (137-145) 05/14/21 04:43 Potassium 4.0 mmol/L (3.6-5.0) 05/14/21 04:43 Chloride 104.1 mmol/L (98-107) 05/14/21 04:43 Carbon Dioxide 23 mmol/L (22-30) 05/14/21 04:43 Anion Gap 15 mmol/L 05/14/21 04:43 BUN 29 mg/dL (7-17) H 05/14/21 04:43 Creatinine 1.2 mg/dL (0.6-1.2) 05/14/21 04:43 Estimated GFR 52 ml/min 05/14/21 04:43 BUN/Creatinine Ratio 24 % 05/14/21 04:43 Glucose 192 mg/dL (65-100) H 05/14/21 04:43 POC Glucose 215 mg/dL (70-105) H 05/14/21 10:59 Hemoglobin A1c 17.1 % (4-6) H 04/22/21 15:55 Lactic Acid 1.90 mmol/L (0.7-2.0) 04/20/21 19:56 Calcium 8.1 mg/dL (8.4-10.2) L 05/14/21 04:43 Phosphorus 3.20 mg/dL (2.5-4.5) 05/14/21 04:43 Magnesium 2.20 mg/dL (1.7-2.3) 05/14/21 04:43 Iron 62 ug/dL (37-170) 04/24/21 17:29 TIBC 285 mcg/dL (250-450) 04/24/21 17:29 % Saturation 21.75 % 04/24/21 17:29 Transferrin 112 mg/dl (192-382) L 04/24/21 17:29 Total Bilirubin 0.20 mg/dL (0.1-1.2) 05/03/21 04:00 Direct Bilirubin < 0.2 mg/dL (0-0.2) 04/29/21 04:00 Indirect Bilirubin 0.1 mg/dL 04/29/21 04:00 AST 53 units/L (5-40) H 05/03/21 04:00 ALT 55 units/L (7-56) 05/03/21 04:00 Alkaline Phosphatase 149 units/L (35-129) H 05/03/21 04:00 Ammonia 29.0 umol/L (25-60) 04/20/21 17:10 Total Creatine Kinase 1000 units/L (30-135) H 04/27/21 07:43 CK-MB (CK-2) 36.0 ng/mL (0.0-4.0) H 04/20/21 17:10 CK-MB (CK-2) Rel Index 0.9 (0-4) 04/20/21 17:10 Troponin T 0.021 ng/mL (0.00-0.029) 04/20/21 17:10 Serum Total Protein 5.5 g/dL (6.1-8.1) L 04/22/21 08:59 Total Protein 5.2 g/dL (6.3-8.2) L 05/03/21 04:00 Albumin 1.5 g/dL (3.9-5) L 05/03/21 04:00 Albumin/Globulin Ratio 0.4 % 05/03/21 04:00 Zdgci-1-Xvlhdbqhm 0.6 g/dL (0.2-0.3) H 04/22/21 08:59 Rrnyo-8-Wvaugmbqd 1.0 g/dL (0.5-0.9) H 04/22/21 08:59 Beta Globulins 0.3 g/dL (0.2-0.5) 04/22/21 08:59 Gamma Globulins 0.6 g/dL (0.8-1.7) L 04/22/21 08:59 Abnorm Protein Band 1 see below 04/22/21 08:59 PEP Interpretation see below H 04/22/21 08:59 Triglycerides 80 mg/dL (2-149) 05/04/21 04:48 Cholesterol 90 mg/dL (50-199) 05/04/21 04:48 LDL Cholesterol Direct 51 mg/dL (50-130) 05/04/21 04:48 HDL Cholesterol 24 mg/dL (40-59) L 05/04/21 04:48 Cholesterol/HDL Ratio 3.75 % 05/04/21 04:48 Serotonin Release Assay See scanned result 04/24/21 17:29 TSH 6.040 mlU/mL (0.270-4.200) H 04/20/21 17:10 Free T4 0.93 ng/dL (0.76-1.46) 04/20/21 17:10 Arterial Blood Glucose 122 mg/dL (65-95) H 05/02/21 04:34 Arterial Blood Ionized Calcium 4.5 mg/dL (4.6-5.3) L 04/28/21 05:18 Urine Color Yellow (Yellow) 04/29/21 13:30 Urine Turbidity Turbid (Clear) 04/29/21 13:30 Urine pH 5.0 (5.0-7.0) 04/29/21 13:30 Ur Specific [place] 1.010 (1.003-1.030) 04/29/21 13:30 Urine Protein 100 mg/dl mg/dL (Negative) 04/29/21 13:30 Urine Glucose (UA) 150 mg/dL (Negative) 04/29/21 13:30 Urine Ketones Neg mg/dL (Negative) 04/29/21 13:30 Urine Blood Lg (Negative) 04/29/21 13:30 Urine Nitrite Neg (Negative) 04/29/21 13:30 Urine Bilirubin Neg (Negative) 04/29/21 13:30 Urine Urobilinogen < 2.0 mg/dL (<2.0) 04/29/21 13:30 Ur Leukocyte Esterase Lg (Negative) 04/29/21 13:30 Urine WBC (Auto) > 182.0 /HPF (0.0-6.0) H 04/29/21 13:30 Urine RBC (Auto) > 182.0 /HPF (0.0-6.0) 04/29/21 13:30 U Epithel Cells (Auto) 4.0 /HPF (0-13.0) 04/29/21 13:30 Urine WBC Clumps 3+ /HPF 04/29/21 13:30 Urine Mucus Few /HPF 04/29/21 13:30 Urine Yeast (Budding) 3+ /HPF 04/29/21 13:30 Urine Osmolality 446 Mosm/kg 04/21/21 08:01 Urine Total Volume 1700 ml 05/08/21 09:34 Urine Creatinine 56.0 mg/dL (0.1-20.0) H 05/08/21 09:34 Ur Creatinine 24 Hour 1.0 (0.8-2.8) 05/08/21 09:34 Urine Sodium 71 mmol/L 04/21/21 08:01 Urine Total Protein 12 mg/dL (5-11.8) H 04/21/21 08:01 CSF Appearance Clear 04/29/21 11:45 CSF Color Colorless 04/29/21 11:45 CSF WBC 14 /mm3 (1-10) 04/29/21 11:45 CSF RBC 324 /mm3 (0-0) 04/29/21 11:45 CSF Seg Neutrophils 50.0 % (0-6) 04/29/21 11:45 CSF Lymphocytes % 40.0 % (40-80) 04/29/21 11:45 CSF Reactive Lymphs Not Reportable 04/29/21 11:45 CSF Monocytes % 10.0 % (15-45) 04/29/21 11:45 CSF Eosinophils % Not Reportable 04/29/21 11:45 CSF Basophils Not Reportable 04/29/21 11:45 CSF Pathologist Review C 04/29/21 11:45 CSF Glucose 161 mg/dL 04/29/21 11:45 CSF Total Protein 51 mg/dL 04/29/21 11:45 Plasma/Serum Alcohol < 0.01 % (0-0.07) 04/20/21 17:10 Heparin-induced Plt Ab Negative (Negative) 04/24/21 17:29 UF Heparin High Dose 1 % Release 04/24/21 17:29 EFE UFH Low Dose 0.1 0 % Release 04/24/21 17:29 EFE UFH Low Dose 0.5 0 % Release 04/24/21 17:29 Coronavirus (PCR) Negative (Negative) 04/21/21 Unknown Hepatitis A IgM Ab Non-reactive (NonReactive) 04/27/21 12:49 Hep Bs Antigen Nonreactive (Negative) 04/27/21 12:49 Hep B Core IgM Ab Non-reactive (NonReactive) 04/27/21 12:49 Hepatitis C Antibody Non-reactive (NonReactive) 04/27/21 12:49 Blood Type O POSITIVE 05/02/21 12:00 Antibody Screen Negative 05/02/21 12:00 Crossmatch See Detail 05/02/21 12:00 Microbiology: Microbiology 05/02/21 Unknown Urine,Catheterized - Indwelling Catheter Urine Culture - Final Roselyn Tropicalis Luther/IV: Voiding Method Indwelling Catheter Active Medications - Current Medications Current Medications: Generic Name Dose Route Start Last Admin Trade Name Freq PRN Reason Stop Dose Admin Acetaminophen 650 mg 04/20/21 21:31 05/14/21 09:50 Acetaminophen 325 Mg Tab PO 650 mg Q4H PRN Administration Pain MILD(1-3)/Fever >100.5/TURCIOS Albumin Human 25 gm 05/06/21 16:06 05/06/21 16:21 Albumin Human 25% (25 Gm/100 Ml) Inj IV 25 gm MITCH PRN Administration Hypotension Albuterol 2.5 mg 04/22/21 14:49 04/23/21 15:18 Albuterol 2.5 Mg/3 Ml Nebu IH 2.5 mg Q4HRT PRN Administration Shortness Of Breath Amlodipine Besylate 5 mg 05/12/21 10:00 05/14/21 09:49 Amlodipine 5 Mg Tab PO 5 mg QDAY AZIZA Administration Lipase/Protease/Amylase 1 each 04/25/21 14:13 Lipase 10,500/Protease 25,000/Amylase 43,750 (Units) Dr Vasquez FEEDTUBE PRN PRN For Clogged Feeding Tube Aspirin 81 mg 05/04/21 10:00 05/14/21 09:50 Aspirin 81 Mg Tab Chew FEEDTUBE 81 mg QDAY AZIZA Administration Atorvastatin Calcium 40 mg 05/04/21 22:00 05/13/21 21:39 Atorvastatin 40 Mg Tab FEEDTUBE 40 mg QHS AZIZA Administration Dextrose 50 ml 04/24/21 11:36 Dextrose 50% In Water (25gm) 50 Ml Syringe IV Q30MIN PRN Hypoglycemia Protocol Famotidine 10 mg 04/27/21 10:00 05/14/21 09:50 Famotidine 10 Mg Tab FEEDTUBE 10 mg BID AZIZA Administration Heparin Sodium (Porcine) 5,000 unit 05/10/21 22:00 05/14/21 09:50 Heparin 5,000 Unit/1 Ml Vial SUB-Q 5,000 unit Q12HR AZIZA Administration Hydrophilic Ointment 1 applic 04/26/21 11:16 Lip Therapy Vaseline TP Q2HR PRN Dry Lips Sodium Chloride 1,000 mls @ 100 mls/hr 05/14/21 08:30 05/14/21 09:53 Nacl 0.9% 1000 Ml IV 05/14/21 18:29 100 mls/hr DIRECT AZIZA Administration Insulin Human Lispro 0 unit 04/25/21 18:00 05/14/21 12:05 Insulin Lispro 100 Unit/Ml SUB-Q 4 unit Q6HR AZIZA Administration Protocol Labetalol HCl 20 mg 05/12/21 11:34 05/12/21 21:35 Labetalol 20 Mg/4 Ml Inj IV 20 mg Q4H PRN Administration SBP >/=170 Levothyroxine Sodium 50 mcg 05/03/21 06:00 05/14/21 05:27 Levothyroxine 50 Mcg Tab PO 50 mcg DAILY@0600 AZIZA Administration Lorazepam 1 mg 04/26/21 11:15 05/12/21 16:27 Lorazepam 2 Mg/Ml Vial IV 1 mg Q4H PRN Administration Sedation Metoclopramide HCl 5 mg 04/20/21 21:31 Metoclopramide 10 Mg/2 Ml Inj IV Q6H PRN Nausea And Vomiting Multi-Ingred Cream/Lotion/Oil/Oint 1 applic 04/26/21 11:16 Mineral Oil/Petrolatum, White Ophth Oint 3.5 Gm OU Q4HR PRN Dry Eye(s) Ondansetron HCl 4 mg 04/20/21 21:31 Ondansetron 4 Mg/2 Ml Inj IV Q8H PRN Nausea And Vomiting Senna/Docusate Sodium 1 tab 04/26/21 22:00 05/14/21 09:50 Sennosides/Docusate Sodium 8.6/50 Mg Tab FEEDTUBE 1 tab BID AZIZA Administration Simple Syrup 15 ml 04/25/21 14:13 Simple Syrup 15 Ml FEEDTUBE PRN PRN Hypoglycemia Simple Syrup 30 ml 04/25/21 14:13 Simple Syrup 15 Ml FEEDTUBE PRN PRN Hypoglycemia Sodium Bicarbonate 325 mg 04/25/21 14:13 04/27/21 13:00 Sodium Bicarbonate 325 Mg Tab FEEDTUBE 325 mg PRN PRN Administration For Clogged Feeding Tube Sodium Bicarbonate 1,300 mg 04/27/21 14:00 05/14/21 13:07 Sodium Bicarbonate 650 Mg Tab PO 1,300 mg TID AZIZA Administration Sodium Chloride 10 ml 04/20/21 22:00 05/14/21 09:51 Sodium Chloride 0.9% 10 Ml Flush Syringe IV 10 ml BID AZIZA Administration Sodium Chloride 10 ml 04/20/21 21:31 Sodium Chloride 0.9% 10 Ml Flush Syringe IV PRN PRN LINE FLUSH Nutrition/Malnutrition Assess - Dietary Evaluation Nutrition/Malnutrition Findings: Nutrition Notes Start: 04/21/21 12:15 Freq: Status: Active Protocol: Document 05/13/21 15:36 TAMMY (Rec: 05/13/21 15:47 [email or web address] [id number]) Nutrition Notes Initial or Follow up Reassessment Current Diagnosis Sepsis,Respiratory Failure, Stroke Other Pertinent Diagnosis Acute metabolic encephalopathy , pneu, UTI Current Diet NPO Labs/Tests BUN 30 Mg 1.6 Pertinent Medications Mag sulfate x 1 dose Height 5 ft 2 in Weight 72.4 kg [place] Body Weight (kg) 50.00 BMI 29.2 Weight Status Overweight Subjective/Other Information Pt remains on vent support. TF off; pt scheduled for trach and PEG placement today. Unable to place PEG sec to suspected anatomical abnormality. Interventional radiology consulted for PEG placement. Per nephrology, SYED resolving; no indication for HD as VasCath has been removed. Minimum of two criteria No #1 Nutrition Diagnosis Inadequate oral intake Diagnosis Progress(for reassessment Continues documentation) Is patient on ventilator? Yes Is Patient Ambulatory and/or Out of Bed No REE-([place]-confined to bed) [phone] Calculation Used for Recommendations Sofya Jimenez Additional Notes Pro needs 1.2-2g/k-145g/ day Fluid needs 1ml/kcal Nutrition Intervention Nutrition Support: When feasible, resume TF, but change formula to Glucerna 1.2 at 50ml/hr with 80ml water flush q4h. Goal #1 Resume TF to meet nutrient needs Follow-Up By: 05/16/21 Additional Comments F/U: PEG placement, TF restart with Glucerna 1.2, vent status
--- NOTE | 2021-05-06 18:33 | XRay Report ---
ABDOMEN 1 VIEW 05/06/2021 6:07 PM INDICATION / CLINICAL INFORMATION: NGT placement. COMPARISON: None available. FINDINGS: TUBES / LINES: Tip the nasogastric tube projects the level the distal stomach. BOWEL GAS PATTERN: No significant abnormality. FREE AIR / EXTRALUMINAL GAS: None. ADDITIONAL FINDINGS: Patchy airspace opacities are noted in the imaged portion of the lungs. IMPRESSION: 1. Esophagogastric tube in expected position. Signer Name: Gregor Langley MD Signed: 05/06/2021 6:28 PM Workstation Name: [id number]
[2021-05-06] MEDS: MEROPENEM/NS 1 GRAM/100 ML 1 GRAM/100 ML BAG IV SCH (18:50)
[2021-05-06] MEDS: FLUCONAZOLE 200 MG 200 MG/100 ML BAG IV SCH (18:50)
[2021-05-07 05:55] LABS: Calcium 8.2 mg/dL (8.4-10.2)
[2021-05-07] MEDS: LEVOTHYROXINE 50 MCG TAB PO SCH (06:10)
[2021-05-07] MEDS: INSULIN LISPRO 100 UNIT/ML SUB-Q SCH ×4 (06:10→18:44)
[2021-05-07] MEDS: MIDODRINE 5 MG TAB PO SCH ×3 (08:59→21:35)
[2021-05-07] MEDS: SODIUM BICARBONATE 650 MG TAB PO SCH ×3 (08:59→21:34)
[2021-05-07] MEDS: ASPIRIN 81 MG TAB CHEW FEEDTUBE SCH (09:06)
[2021-05-07] MEDS: FAMOTIDINE 10 MG TAB FEEDTUBE SCH ×2 (09:07→21:34)
[2021-05-07] MEDS: SENNOSIDES/DOCUSATE SODIUM 8.6/50 MG TAB FEEDTUBE SCH ×2 (09:50→21:34)
--- NOTE | 2021-05-07 12:23 | Progress Note ---
Assessment and Plan (1) Acute metabolic encephalopathy (2) Diabetic hyperosmolar non-ketotic state 3) SYED (acute kidney injury) (4) Dehydration (5) Hypernatremia (6) Rhabdomyolysis (7) Hypernatremia 8) GERD (gastroesophageal reflux disease) (9) Metabolic acidosis (10) Leukocytosis no indication for HD today will assess dialysis needs daily renally dose meds Strict I&O In ICU Subjective Date of service: 05/07/21 Principal diagnosis: Acute respiratory failure Interval history: no overnight events reported Objective - Vital Signs Vital signs: Vital Signs - 12hr 05/07/21 05/07/21 05/07/21 00:30 01:00 01:30 Temperature Pulse Rate 79 76 81 Pulse Rate [ From Monitor] Respiratory 17 18 18 Rate Blood Pressure 139/65 124/61 127/69 O2 Sat by Pulse 98 98 98 Oximetry 05/07/21 05/07/21 05/07/21 02:00 02:30 03:00 Temperature Pulse Rate 76 82 81 Pulse Rate [ From Monitor] Respiratory 16 15 15 Rate Blood Pressure 135/55 135/70 131/61 O2 Sat by Pulse 98 99 98 Oximetry 05/07/21 05/07/21 05/07/21 03:15 03:30 03:31 Temperature 99.6 F Pulse Rate 79 79 Pulse Rate [ From Monitor] Respiratory 15 Rate Blood Pressure 131/60 139/66 O2 Sat by Pulse 99 98 Oximetry 05/07/21 05/07/21 05/07/21 04:00 04:30 05:00 Temperature Pulse Rate 73 79 74 Pulse Rate [ 77 From Monitor] Respiratory 14 27 H 14 Rate Blood Pressure 134/54 135/60 123/55 O2 Sat by Pulse 98 98 99 Oximetry 05/07/21 05/07/21 05/07/21 05:30 06:00 06:30 Temperature Pulse Rate 78 74 80 Pulse Rate [ From Monitor] Respiratory 24 14 14 Rate Blood Pressure 116/65 125/56 128/58 O2 Sat by Pulse 98 98 98 Oximetry 05/07/21 05/07/21 05/07/21 07:00 07:30 08:00 Temperature Pulse Rate 76 83 91 H Pulse Rate [ 89 From Monitor] Respiratory 18 25 H 13 Rate Blood Pressure 133/57 127/59 98/45 O2 Sat by Pulse 98 98 98 Oximetry 05/07/21 05/07/21 05/07/21 08:30 09:00 09:30 Temperature Pulse Rate 77 75 76 Pulse Rate [ From Monitor] Respiratory 14 14 15 Rate Blood Pressure 131/65 98/45 120/56 O2 Sat by Pulse 98 98 98 Oximetry 05/07/21 05/07/21 05/07/21 10:00 10:30 11:00 Temperature Pulse Rate 87 82 86 Pulse Rate [ From Monitor] Respiratory 21 14 15 Rate Blood Pressure 135/69 127/58 135/64 O2 Sat by Pulse 99 98 98 Oximetry 05/07/21 12:00 Temperature 99.6 F Pulse Rate Pulse Rate [ From Monitor] Respiratory Rate Blood Pressure O2 Sat by Pulse Oximetry - Lab 05/06/21 04:27 05/07/21 04:23 Most recent lab results ABG pH 7.487 (7.320-7.450) H 05/02/21 04:34 ABG pCO2 31.6 mm Hg 04/21/21 15:47 ABG pO2 168.1 mm Hg (80.0-90.0) H 04/21/21 15:47 ABG HCO3 23.3 mmol/L (20.0-26.0) 04/21/21 15:47 ABG O2 Saturation 96.0 (0-100) 05/02/21 04:34 Calcium 8.2 mg/dL (8.4-10.2) L 05/07/21 04:23 Phosphorus 4.60 mg/dL (2.5-4.5) H 05/06/21 04:00 Magnesium 1.70 mg/dL (1.7-2.3) 05/06/21 04:00 Urine Creatinine 44.3 mg/dL (0.1-20.0) H 04/21/21 08:01 Urine Sodium 71 mmol/L 04/21/21 08:01 Urine Total Protein 12 mg/dL (5-11.8) H 04/21/21 08:01 Medications & Allergies - Medications Allergies/Adverse Reactions: Allergies No Known Allergies Allergy (Unverified 04/20/21 14:35) Active Medications: Generic Name Dose Route Start Last Admin Trade Name Freq PRN Reason Stop Dose Admin Acetaminophen 650 mg 04/20/21 21:31 05/01/21 18:15 Acetaminophen 325 Mg Tab PO 650 mg Q4H PRN Administration Pain MILD(1-3)/Fever >100.5/TURCIOS Albumin Human 25 gm 05/06/21 16:06 05/06/21 16:21 Albumin Human 25% (25 Gm/100 Ml) Inj IV 25 gm MITCH PRN Administration Hypotension Albuterol 2.5 mg 04/22/21 14:49 04/23/21 15:18 Albuterol 2.5 Mg/3 Ml Nebu IH 2.5 mg Q4HRT PRN Administration Shortness Of Breath Lipase/Protease/Amylase 1 each 04/25/21 14:13 Lipase 10,500/Protease 25,000/Amylase 43,750 (Units) Dr Vasquez FEEDTUBE PRN PRN For Clogged Feeding Tube Aspirin 81 mg 05/04/21 10:00 05/07/21 09:06 Aspirin 81 Mg Tab Chew FEEDTUBE 81 mg QDAY AZIZA Administration Atorvastatin Calcium 40 mg 05/04/21 22:00 05/06/21 21:46 Atorvastatin 40 Mg Tab FEEDTUBE 40 mg QHS AZIZA Administration Dextrose 50 ml 04/24/21 11:36 Dextrose 50% In Water (25gm) 50 Ml Syringe IV Q30MIN PRN Hypoglycemia Protocol Famotidine 10 mg 04/27/21 10:00 05/07/21 09:07 Famotidine 10 Mg Tab FEEDTUBE 10 mg BID AZIZA Administration Hydralazine HCl 10 mg 04/24/21 21:22 Hydralazine 20 Mg/1 Ml Inj IV Q4HR PRN elevated BP Hydrophilic Ointment 1 applic 04/26/21 11:16 Lip Therapy Vaseline TP Q2HR PRN Dry Lips NORepinephrine/NS 8 MG-250 ML 8 mg in 250 mls @ 3.75 mls/hr 04/26/21 16:00 05/04/21 21:34 Norepinephrine/Ns 8 Mg-250 Ml (Double Conc) IV 0 mcg/min TITRATE AZIZA 0 mls/hr Titration Protocol 2 MCG/MIN MEROPENEM/NS 1 GRAM/100 ML 1 gram in 100 mls @ 100 mls/hr 05/03/21 15:00 05/06/21 18:50 Merrem/Ns 1 Gram/100 Ml IV 05/08/21 15:59 100 mls/hr 1500 AZIZA Administration Protocol Sodium Chloride 100 mls @ 999 mls/hr 05/04/21 11:30 Nacl 0.9% IV MITCH PRN Hypotension Fluconazole 200 mg in 100 mls @ 100 mls/hr 05/05/21 15:00 05/06/21 18:50 Diflucan IV 05/09/21 15:59 100 mls/hr Q24H [facility] Administration Protocol Sodium Chloride 100 mls @ 999 mls/hr 05/06/21 16:06 Nacl 0.9% IV MITCH PRN Hypotension Insulin Human Lispro 0 unit 04/25/21 18:00 05/07/21 06:10 Insulin Lispro 100 Unit/Ml SUB-Q 4 unit Q6HR [facility] Administration Protocol Levothyroxine Sodium 50 mcg 05/03/21 06:00 05/07/21 06:10 Levothyroxine 50 Mcg Tab PO 50 mcg DAILY@0600 [facility] Administration Lorazepam 1 mg 04/26/21 11:15 04/30/21 23:00 Lorazepam 2 Mg/Ml Vial IV 1 mg Q4H PRN Administration Sedation Metoclopramide HCl 5 mg 04/20/21 21:31 Metoclopramide 10 Mg/2 Ml Inj IV Q6H PRN Nausea And Vomiting Midodrine 10 mg 05/04/21 14:00 05/07/21 08:59 Midodrine 5 Mg Tab PO 10 mg TID [facility] Administration Multi-Ingred Cream/Lotion/Oil/Oint 1 applic 04/26/21 11:16 Mineral Oil/Petrolatum, White Ophth Oint 3.5 Gm OU Q4HR PRN Dry Eye(s) Ondansetron HCl 4 mg 04/20/21 21:31 Ondansetron 4 Mg/2 Ml Inj IV Q8H PRN Nausea And Vomiting Senna/Docusate Sodium 1 tab 04/26/21 22:00 05/06/21 21:46 Sennosides/Docusate Sodium 8.6/50 Mg Tab FEEDTUBE 1 tab BID AZIZA Administration Simple Syrup 15 ml 04/25/21 14:13 Simple Syrup 15 Ml FEEDTUBE PRN PRN Hypoglycemia Simple Syrup 30 ml 04/25/21 14:13 Simple Syrup 15 Ml FEEDTUBE PRN PRN Hypoglycemia Sodium Bicarbonate 325 mg 04/25/21 14:13 04/27/21 13:00 Sodium Bicarbonate 325 Mg Tab FEEDTUBE 325 mg PRN PRN Administration For Clogged Feeding Tube Sodium Bicarbonate 1,300 mg 04/27/21 14:00 05/07/21 08:59 Sodium Bicarbonate 650 Mg Tab PO 1,300 mg TID AZIZA Administration Sodium Chloride 10 ml 04/20/21 22:00 05/07/21 09:07 Sodium Chloride 0.9% 10 Ml Flush Syringe IV 10 ml BID AZIZA Administration Sodium Chloride 10 ml 04/20/21 21:31 Sodium Chloride 0.9% 10 Ml Flush Syringe IV PRN PRN LINE FLUSH
--- NOTE | 2021-05-07 12:34 | Progress Note ---
Assessment and Plan 80 y/o female with altered mental state, severe electrolyte imbalance with presumptive acute renal failure and hypothermia. 05/07/20: Continue supportive measures. Follow up neurology recs. 05/05/21: follow up neurology notes. They are discussing with cards the [facility]COLN. Continue vent support. Poor prognosis. 05/04/21: follow up MRA when done. LINCOLN pending. HD per renal. Daily PSV trials as tolerated. Poor prognosis given MRI findings and lack of responsiveness off sedation. 05/03/21: Follow up Neurology recs for today. Attempt PSV trials. HD on yesterday. Very very guarded prognosis. 05/02/21: MRI today. Repeat cultures. HD per renal. Once MRI results back will discuss with Neurosurgery to see if anything further should be done. Abx per ID. Overall prognosis is very guarded to poor. 04/29/21: Will reach out to neuro after 24-48 hours post spinal tap pending any change in mentation. If improvement, may need to consider shunt placement. If not, not sure that there is anything they can offer. if they still want MRI, then can obtain. Now spiking temps. Blood cultures and UA. Given time frame in Hospital will place on Vanc and Cefepime. Guarded prognosis. HD per renal. Given anasarca, will ask renal about trying to remove volume. 04/28/21: Will discuss with renal about HD again today. MRI vs LP (large amount). Coags are ok. Will attempt to get at least one of these done today. Patient is still on 80% but sat is 100. Will ask [employer]OM[employer] COACH about placing ART line today. Wean FiO2 as tolerated. Guarded prognosis. 04/27/21: HD today per renal. Vascath placed and awaiting CXR for conformation of good placement (done and good). Vent weaning as tolerated for sats >88%. ABG in the AM. Will check Coags in the am and hopeful these are stable. Platelets need to above 50K. Would like to do large volume spinal tap to see if this helps with mentation. Will also obtain MRI once oxygen requirement im proves. 04/26/21: WIll electively intubate and then obtain MRI. Pending MRI results, will likely order large volume spinal tap to assess if NPH is a factor or not. Guarded prognosis. Electrolytes are improving. 04/25/21: Continue to follow renal recs. Will reach out to POA either today or tomorrow for further updates. Follow up renal recs. Monitor electrolytes and renal function. Guarded prognosis. 1. Neuro-reached out to neuro surgery, placed consult in regards to CT findings 2. Renal-appreciate help and recs, will follow IV hydration recommendations 3. Blood cultures. Urine was negative 4. Jorge Hugger for temp Guarded prognosis CCT 31 minutes. Subjective Date of service: 05/07/21 Principal diagnosis: Acute respiratory failure Interval history: Failed psv with RR in the 40's. Placed back on rate. Unresponsive but will open eyes but no purposeful movement. Objective Vital Signs - 12hr 05/07/21 05/07/21 05/07/21 01:00 01:30 02:00 Temperature Pulse Rate 76 81 76 Pulse Rate [ From Monitor] Respiratory 18 18 16 Rate Blood Pressure 124/61 127/69 135/55 O2 Sat by Pulse 98 98 98 Oximetry 05/07/21 05/07/21 05/07/21 02:30 03:00 03:15 Temperature Pulse Rate 82 81 79 Pulse Rate [ From Monitor] Respiratory 15 15 Rate Blood Pressure 135/70 131/61 131/60 O2 Sat by Pulse 99 98 99 Oximetry 05/07/21 05/07/21 05/07/21 03:30 03:31 04:00 Temperature 99.6 F Pulse Rate 79 73 Pulse Rate [ 77 From Monitor] Respiratory 15 14 Rate Blood Pressure 139/66 134/54 O2 Sat by Pulse 98 98 Oximetry 05/07/21 05/07/21 05/07/21 04:30 05:00 05:30 Temperature Pulse Rate 79 74 78 Pulse Rate [ From Monitor] Respiratory 27 H 14 24 Rate Blood Pressure 135/60 123/55 116/65 O2 Sat by Pulse 98 99 98 Oximetry 05/07/21 05/07/21 05/07/21 06:00 06:30 07:00 Temperature Pulse Rate 74 80 76 Pulse Rate [ From Monitor] Respiratory 14 14 18 Rate Blood Pressure 125/56 128/58 133/57 O2 Sat by Pulse 98 98 98 Oximetry 05/07/21 05/07/21 05/07/21 07:30 08:00 08:30 Temperature Pulse Rate 83 91 H 77 Pulse Rate [ 89 From Monitor] Respiratory 25 H 13 14 Rate Blood Pressure 127/59 98/45 131/65 O2 Sat by Pulse 98 98 98 Oximetry 05/07/21 05/07/21 05/07/21 09:00 09:30 10:00 Temperature Pulse Rate 75 76 87 Pulse Rate [ From Monitor] Respiratory 14 15 21 Rate Blood Pressure 98/45 120/56 135/69 O2 Sat by Pulse 98 98 99 Oximetry 05/07/21 05/07/21 05/07/21 10:30 11:00 12:00 Temperature 99.6 F Pulse Rate 82 86 Pulse Rate [ From Monitor] Respiratory 14 15 Rate Blood Pressure 127/58 135/64 O2 Sat by Pulse 98 98 Oximetry Constitutional: other (critically ill, somnolent, on vent) Eyes: non-icteric ENT: oropharynx dry Effort: other (tachypneic but not labored) Ascultation: Bilateral: clear Cardiovascular: regular rate and rhythm Gastrointestinal: normoactive bowel sounds Integumentary: normal Extremities: no cyanosis, no edema, pink and warm Neurologic: unable to assess Psychiatric: other (unable to assess) CBC and BMP: 05/06/21 04:27 05/07/21 04:23 ABG, PT/INR, D-dimer: ABG ABG pH 7.487 (7.320-7.450) H 05/02/21 04:34 POC ABG pCO2 35.3 mmHg (32.0-48.0) 05/02/21 04:34 ABG pCO2 31.6 mm Hg 04/21/21 15:47 POC ABG pO2 78.6 mmHg (83-108) L 05/02/21 04:34 ABG pO2 168.1 mm Hg (80.0-90.0) H 04/21/21 15:47 POC ABG HCO3 26.1 05/02/21 04:34 ABG O2 Saturation 96.0 (0-100) 05/02/21 04:34 PT/INR, D-dimer PT 15.3 Sec. (12.2-14.9) H 04/28/21 05:00 INR 1.09 (0.87-1.13) 04/28/21 05:00 Abnormal lab findings: Abnormal Labs 04/20/21 04/20/21 04/20/21 17:10 17:10 17:10 WBC 17.4 H RBC 5.19 H Hgb Hct 46.8 H MCH 27 L RDW 17.2 H Plt Count Seg Neuts % (Manual) 98.0 H Lymphocytes % (Manual) 2.0 L Nucleated RBC % 1.0 H Seg Neutrophils # Man 17.1 H Lymphocytes # (Manual) 0.3 L PT ABG pH POC ABG pCO2 POC ABG pO2 ABG pO2 ABG O2 Saturation ABG Base Excess ABG Hemoglobin ABG Oxyhemoglobin ABG Potassium ABG Chloride ABG Glucose Oxyhemoglobin Carboxyhemoglobin Sodium 173 H* Potassium Chloride 132.9 H Carbon Dioxide 17 L BUN 120 H Creatinine 4.2 H Glucose 762 H* POC Glucose Hemoglobin A1c Lactic Acid Calcium Phosphorus Magnesium 3.80 H Transferrin AST 72 H ALT 63 H Alkaline Phosphatase 148 H Total Creatine Kinase 3697 H CK-MB (CK-2) 36.0 H Serum Total Protein Total Protein Albumin 2.2 L Loisn-5-Mcprgmakv Xloja-0-Xrcbmgaad Gamma Globulins PEP Interpretation HDL Cholesterol TSH Arterial Blood Glucose Arterial Blood Ionized Calcium Urine WBC (Auto) Urine Creatinine Urine Total Protein Crossmatch 04/20/21 04/20/21 04/20/21 17:10 17:10 18:55 WBC RBC Hgb Hct MCH RDW Plt Count Seg Neuts % (Manual) Lymphocytes % (Manual) Nucleated RBC % Seg Neutrophils # Man Lymphocytes # (Manual) PT ABG pH POC ABG pCO2 POC ABG pO2 ABG pO2 ABG O2 Saturation ABG Base Excess ABG Hemoglobin ABG Oxyhemoglobin ABG Potassium ABG Chloride ABG Glucose Oxyhemoglobin Carboxyhemoglobin Sodium Potassium Chloride Carbon Dioxide BUN Creatinine Glucose POC Glucose 574 H Hemoglobin A1c Lactic Acid 2.60 H* Calcium Phosphorus Magnesium Transferrin AST ALT Alkaline Phosphatase Total Creatine Kinase CK-MB (CK-2) Serum Total Protein Total Protein Albumin Oxacc-4-Twaelffyk Iyjqs-5-Pxjvadjbe Gamma Globulins PEP Interpretation HDL Cholesterol TSH 6.040 H Arterial Blood Glucose Arterial Blood Ionized Calcium Urine WBC (Auto) Urine Creatinine Urine Total Protein Crossmatch 04/20/21 04/20/21 04/20/21 22:12 22:58 22:58 WBC RBC Hgb Hct MCH RDW Plt Count Seg Neuts % (Manual) Lymphocytes % (Manual) Nucleated RBC % Seg Neutrophils # Man Lymphocytes # (Manual) PT ABG pH POC ABG pCO2 POC ABG pO2 ABG pO2 ABG O2 Saturation ABG Base Excess ABG Hemoglobin ABG Oxyhemoglobin ABG Potassium ABG Chloride ABG Glucose Oxyhemoglobin Carboxyhemoglobin Sodium 172 H* Potassium 3.2 L Chloride 134.2 H Carbon Dioxide 17 L BUN 112 H Creatinine 3.8 H Glucose 803 H* POC Glucose 554 H Hemoglobin A1c Lactic Acid Calcium 8.3 L Phosphorus Magnesium 3.50 H Transferrin AST ALT Alkaline Phosphatase Total Creatine Kinase CK-MB (CK-2) Serum Total Protein Total Protein Albumin Bdgsn-0-Banhdxemt Cfcuo-6-Wrfrkyycc Gamma Globulins PEP Interpretation HDL Cholesterol TSH Arterial Blood Glucose Arterial Blood Ionized Calcium Urine WBC (Auto) Urine Creatinine Urine Total Protein Crossmatch 04/21/21 04/21/21 04/21/21 00:14 00:22 02:01 WBC RBC Hgb Hct MCH RDW Plt Count Seg Neuts % (Manual) Lymphocytes % (Manual) Nucleated RBC % Seg Neutrophils # Man Lymphocytes # (Manual) PT ABG pH POC ABG pCO2 POC ABG pO2 ABG pO2 ABG O2 Saturation ABG Base Excess ABG Hemoglobin ABG Oxyhemoglobin ABG Potassium ABG Chloride ABG Glucose Oxyhemoglobin Carboxyhemoglobin Sodium 176 H* 175 H* Potassium 2.9 L* 3.0 L Chloride 139.9 H 136.2 H Carbon Dioxide 17 L 19 L BUN 113 H 112 H Creatinine 3.9 H 3.6 H Glucose 729 H* 582 H* POC Glucose > 600 H Hemoglobin A1c Lactic Acid Calcium Phosphorus Magnesium Transferrin AST ALT Alkaline Phosphatase Total Creatine Kinase CK-MB (CK-2) Serum Total Protein Total Protein Albumin Xcrvt-6-Jdmxmzpqc Ohsew-2-Wtaxsxpwy Gamma Globulins PEP Interpretation HDL Cholesterol TSH Arterial Blood Glucose Arterial Blood Ionized Calcium Urine WBC (Auto) Urine Creatinine Urine Total Protein Crossmatch 04/21/21 04/21/21 04/21/21 03:11 03:20 03:41 WBC 14.1 H RBC Hgb Hct MCH 27 L RDW 16.8 H Plt Count 114 L Seg Neuts % (Manual) 97.0 H Lymphocytes % (Manual) 3.0 L Nucleated RBC % 1.0 H Seg Neutrophils # Man 13.7 H Lymphocytes # (Manual) 0.4 L PT ABG pH POC ABG pCO2 POC ABG pO2 ABG pO2 52.3 L ABG O2 Saturation 84.5 L ABG Base Excess -2.9 L ABG Hemoglobin ABG Oxyhemoglobin ABG Potassium ABG Chloride ABG Glucose Oxyhemoglobin 82.9 L Carboxyhemoglobin Sodium Potassium Chloride Carbon Dioxide BUN Creatinine Glucose POC Glucose 404 H Hemoglobin A1c Lactic Acid Calcium Phosphorus Magnesium Transferrin AST ALT Alkaline Phosphatase Total Creatine Kinase CK-MB (CK-2) Serum Total Protein Total Protein Albumin Vdflk-3-Rromcwftr Uykwz-8-Hwfolkkub Gamma Globulins PEP Interpretation HDL Cholesterol TSH Arterial Blood Glucose Arterial Blood Ionized Calcium Urine WBC (Auto) Urine Creatinine Urine Total Protein Crossmatch 04/21/21 04/21/21 04/21/21 03:41 04:24 05:45 WBC RBC Hgb Hct MCH RDW Plt Count Seg Neuts % (Manual) Lymphocytes % (Manual) Nucleated RBC % Seg Neutrophils # Man Lymphocytes # (Manual) PT ABG pH POC ABG pCO2 POC ABG pO2 ABG pO2 ABG O2 Saturation ABG Base Excess ABG Hemoglobin ABG Oxyhemoglobin ABG Potassium ABG Chloride ABG Glucose Oxyhemoglobin Carboxyhemoglobin Sodium 179 H* Potassium 2.9 L* Chloride 138.2 H Carbon Dioxide 20 L BUN 111 H Creatinine 3.7 H Glucose 465 H POC Glucose 353 H 280 H Hemoglobin A1c Lactic Acid Calcium Phosphorus Magnesium Transferrin AST 73 H ALT 61 H Alkaline Phosphatase 144 H Total Creatine Kinase CK-MB (CK-2) Serum Total Protein Total Protein Albumin 2.5 L Vobad-9-Fakywdzei Ncvvv-9-Jwwtdwflk Gamma Globulins PEP Interpretation HDL Cholesterol TSH Arterial Blood Glucose Arterial Blood Ionized Calcium Urine WBC (Auto) Urine Creatinine Urine Total Protein Crossmatch 04/21/21 04/21/21 04/21/21 06:47 08:01 11:11 WBC RBC Hgb Hct MCH RDW Plt Count Seg Neuts % (Manual) Lymphocytes % (Manual) Nucleated RBC % Seg Neutrophils # Man Lymphocytes # (Manual) PT ABG pH POC ABG pCO2 POC ABG pO2 ABG pO2 ABG O2 Saturation ABG Base Excess ABG Hemoglobin ABG Oxyhemoglobin ABG Potassium ABG Chloride ABG Glucose Oxyhemoglobin Carboxyhemoglobin Sodium Potassium Chloride Carbon Dioxide BUN Creatinine Glucose POC Glucose 260 H 68 L Hemoglobin A1c Lactic Acid Calcium Phosphorus Magnesium Transferrin AST ALT Alkaline Phosphatase Total Creatine Kinase CK-MB (CK-2) Serum Total Protein Total Protein Albumin Ocwlp-4-Qgsrxziul Nthlt-9-Vwfpsajin Gamma Globulins PEP Interpretation HDL Cholesterol TSH Arterial Blood Glucose Arterial Blood Ionized Calcium Urine WBC (Auto) Urine Creatinine 44.3 H Urine Total Protein 12 H Crossmatch 04/21/21 04/21/21 04/21/21 12:51 13:41 14:40 WBC RBC Hgb Hct MCH RDW Plt Count Seg Neuts % (Manual) Lymphocytes % (Manual) Nucleated RBC % Seg Neutrophils # Man Lymphocytes # (Manual) PT ABG pH 7.275 L POC ABG pCO2 POC ABG pO2 63.4 L ABG pO2 ABG O2 Saturation ABG Base Excess ABG Hemoglobin 8.4 L ABG Oxyhemoglobin 89.5 L ABG Potassium ABG Chloride 108.0 H ABG Glucose 404 H Oxyhemoglobin Carboxyhemoglobin Sodium Potassium Chloride Carbon Dioxide BUN Creatinine Glucose POC Glucose 146 H 186 H Hemoglobin A1c Lactic Acid Calcium Phosphorus Magnesium Transferrin AST ALT Alkaline Phosphatase Total Creatine Kinase CK-MB (CK-2) Serum Total Protein Total Protein Albumin Amfdo-5-Lnawfjnvr Unewv-6-Gbykrptvj Gamma Globulins PEP Interpretation HDL Cholesterol TSH Arterial Blood Glucose 404 H Arterial Blood Ionized Calcium Urine WBC (Auto) Urine Creatinine Urine Total Protein Crossmatch 04/21/21 04/21/21 04/21/21 15:47 16:25 17:57 WBC RBC Hgb Hct MCH RDW Plt Count Seg Neuts % (Manual) Lymphocytes % (Manual) Nucleated RBC % Seg Neutrophils # Man Lymphocytes # (Manual) PT ABG pH 7.486 H POC ABG pCO2 POC ABG pO2 ABG pO2 168.1 H ABG O2 Saturation 99.1 H ABG Base Excess ABG Hemoglobin 8.9 L ABG Oxyhemoglobin ABG Potassium ABG Chloride ABG Glucose Oxyhemoglobin Carboxyhemoglobin Sodium Potassium Chloride Carbon Dioxide BUN Creatinine Glucose POC Glucose 172 H 143 H Hemoglobin A1c Lactic Acid Calcium Phosphorus Magnesium Transferrin AST ALT Alkaline Phosphatase Total Creatine Kinase CK-MB (CK-2) Serum Total Protein Total Protein Albumin Jcmfc-0-Dxoxjxpve Lenhn-2-Xsfgexrly Gamma Globulins PEP Interpretation HDL Cholesterol TSH Arterial Blood Glucose Arterial Blood Ionized Calcium Urine WBC (Auto) Urine Creatinine Urine Total Protein Crossmatch 04/21/21 04/21/21 04/21/21 18:49 19:10 20:26 WBC RBC Hgb Hct MCH RDW Plt Count Seg Neuts % (Manual) Lymphocytes % (Manual) Nucleated RBC % Seg Neutrophils # Man Lymphocytes # (Manual) PT ABG pH POC ABG pCO2 POC ABG pO2 ABG pO2 ABG O2 Saturation ABG Base Excess ABG Hemoglobin ABG Oxyhemoglobin ABG Potassium ABG Chloride ABG Glucose Oxyhemoglobin Carboxyhemoglobin Sodium 174 H* Potassium 7.2 H* D Chloride 138.2 H Carbon Dioxide 21 L BUN 99 H Creatinine 4.0 H Glucose 157 H POC Glucose 126 H 190 H Hemoglobin A1c Lactic Acid Calcium Phosphorus Magnesium Transferrin AST 134 H ALT 71 H Alkaline Phosphatase 135 H Total Creatine Kinase 3504 H CK-MB (CK-2) Serum Total Protein Total Protein Albumin 2.2 L Wvqab-4-Unkgwkqvj Edvxr-7-Nebhsvjik Gamma Globulins PEP Interpretation HDL Cholesterol TSH Arterial Blood Glucose Arterial Blood Ionized Calcium Urine WBC (Auto) Urine Creatinine Urine Total Protein Crossmatch 04/21/21 04/21/21 04/21/21 20:53 21:52 22:55 WBC RBC Hgb Hct MCH RDW Plt Count Seg Neuts % (Manual) Lymphocytes % (Manual) Nucleated RBC % Seg Neutrophils # Man Lymphocytes # (Manual) PT ABG pH POC ABG pCO2 POC ABG pO2 ABG pO2 ABG O2 Saturation ABG Base Excess ABG Hemoglobin ABG Oxyhemoglobin ABG Potassium ABG Chloride ABG Glucose Oxyhemoglobin Carboxyhemoglobin Sodium Potassium Chloride Carbon Dioxide BUN Creatinine Glucose POC Glucose 116 H 135 H 158 H Hemoglobin A1c Lactic Acid Calcium Phosphorus Magnesium Transferrin AST ALT Alkaline Phosphatase Total Creatine Kinase CK-MB (CK-2) Serum Total Protein Total Protein Albumin Pwwjy-6-Ysntreazs Fpoao-5-Qvvzimehp Gamma Globulins PEP Interpretation HDL Cholesterol TSH Arterial Blood Glucose Arterial Blood Ionized Calcium Urine WBC (Auto) Urine Creatinine Urine Total Protein Crossmatch 04/21/21 04/22/21 04/22/21 23:00 00:01 00:39 WBC RBC Hgb Hct MCH RDW Plt Count Seg Neuts % (Manual) Lymphocytes % (Manual) Nucleated RBC % Seg Neutrophils # Man Lymphocytes # (Manual) PT ABG pH POC ABG pCO2 POC ABG pO2 ABG pO2 ABG O2 Saturation ABG Base Excess ABG Hemoglobin ABG Oxyhemoglobin ABG Potassium ABG Chloride ABG Glucose Oxyhemoglobin Carboxyhemoglobin Sodium 176 H* 171 H* Potassium Chloride 140.0 H Carbon Dioxide 20 L BUN 98 H Creatinine 3.9 H Glucose 206 H POC Glucose 182 H Hemoglobin A1c Lactic Acid Calcium Phosphorus Magnesium Transferrin AST ALT Alkaline Phosphatase Total Creatine Kinase 3240 H CK-MB (CK-2) Serum Total Protein Total Protein Albumin Wgcmd-9-Pjdqabsxi Fjnfq-8-Vnehamrer Gamma Globulins PEP Interpretation HDL Cholesterol TSH Arterial Blood Glucose Arterial Blood Ionized Calcium Urine WBC (Auto) Urine Creatinine Urine Total Protein Crossmatch 04/22/21 04/22/21 04/22/21 00:58 01:04 04:52 WBC 11.2 H RBC Hgb Hct 44.3 H MCH 27 L RDW 17.1 H Plt Count 86 L Seg Neuts % (Manual) 86.0 H Lymphocytes % (Manual) 13.0 L Nucleated RBC % Seg Neutrophils # Man 9.6 H Lymphocytes # (Manual) PT ABG pH POC ABG pCO2 POC ABG pO2 ABG pO2 ABG O2 Saturation ABG Base Excess ABG Hemoglobin ABG Oxyhemoglobin ABG Potassium ABG Chloride ABG Glucose Oxyhemoglobin Carboxyhemoglobin Sodium Potassium Chloride Carbon Dioxide BUN Creatinine Glucose POC Glucose 176 H 143 H Hemoglobin A1c Lactic Acid Calcium Phosphorus Magnesium Transferrin AST ALT Alkaline Phosphatase Total Creatine Kinase CK-MB (CK-2) Serum Total Protein Total Protein Albumin Gycfy-7-Fwsslnxcw Kpkwo-5-Pnqqpenow Gamma Globulins PEP Interpretation HDL Cholesterol TSH Arterial Blood Glucose Arterial Blood Ionized Calcium Urine WBC (Auto) Urine Creatinine Urine Total Protein Crossmatch 04/22/21 04/22/21 04/22/21 06:07 06:09 07:18 WBC RBC Hgb Hct MCH RDW Plt Count Seg Neuts % (Manual) Lymphocytes % (Manual) Nucleated RBC % Seg Neutrophils # Man Lymphocytes # (Manual) PT ABG pH POC ABG pCO2 POC ABG pO2 ABG pO2 ABG O2 Saturation ABG Base Excess ABG Hemoglobin ABG Oxyhemoglobin ABG Potassium ABG Chloride ABG Glucose Oxyhemoglobin Carboxyhemoglobin Sodium Potassium Chloride Carbon Dioxide BUN Creatinine Glucose POC Glucose 206 H 163 H 158 H Hemoglobin A1c Lactic Acid Calcium Phosphorus Magnesium Transferrin AST ALT Alkaline Phosphatase Total Creatine Kinase CK-MB (CK-2) Serum Total Protein Total Protein Albumin Bxotb-7-Vfbujnspu Wdodo-9-Szshglvsb Gamma Globulins PEP Interpretation HDL Cholesterol TSH Arterial Blood Glucose Arterial Blood Ionized Calcium Urine WBC (Auto) Urine Creatinine Urine Total Protein Crossmatch 04/22/21 04/22/21 04/22/21 08:59 08:59 08:59 WBC RBC Hgb Hct MCH RDW Plt Count Seg Neuts % (Manual) Lymphocytes % (Manual) Nucleated RBC % Seg Neutrophils # Man Lymphocytes # (Manual) PT ABG pH POC ABG pCO2 POC ABG pO2 ABG pO2 ABG O2 Saturation ABG Base Excess ABG Hemoglobin ABG Oxyhemoglobin ABG Potassium ABG Chloride ABG Glucose Oxyhemoglobin Carboxyhemoglobin Sodium 169 H* Potassium 3.5 L Chloride 134.5 H Carbon Dioxide 20 L BUN 95 H Creatinine 3.6 H Glucose 151 H POC Glucose Hemoglobin A1c Lactic Acid Calcium Phosphorus Magnesium Transferrin AST 121 H ALT 75 H Alkaline Phosphatase 137 H Total Creatine Kinase 3105 H CK-MB (CK-2) Serum Total Protein 5.5 L Total Protein 6.0 L Albumin 2.8 L 2.1 L Inbcl-5-Zsnfqhhgw 0.6 H Appdf-9-Opmggybrw 1.0 H Gamma Globulins 0.6 L PEP Interpretation see below H HDL Cholesterol TSH Arterial Blood Glucose Arterial Blood Ionized Calcium Urine WBC (Auto) Urine Creatinine Urine Total Protein Crossmatch 04/22/21 04/22/21 04/22/21 09:44 10:24 12:20 WBC RBC Hgb Hct MCH RDW Plt Count Seg Neuts % (Manual) Lymphocytes % (Manual) Nucleated RBC % Seg Neutrophils # Man Lymphocytes # (Manual) PT ABG pH POC ABG pCO2 POC ABG pO2 ABG pO2 ABG O2 Saturation ABG Base Excess ABG Hemoglobin ABG Oxyhemoglobin ABG Potassium ABG Chloride ABG Glucose Oxyhemoglobin Carboxyhemoglobin Sodium Potassium Chloride Carbon Dioxide BUN Creatinine Glucose POC Glucose 107 H 131 H Hemoglobin A1c Lactic Acid Calcium Phosphorus Magnesium 2.80 H Transferrin AST ALT Alkaline Phosphatase Total Creatine Kinase CK-MB (CK-2) Serum Total Protein Total Protein Albumin Qiwzi-6-Zlqlfxwdc Xbclg-8-Wxnkbvmdw Gamma Globulins PEP Interpretation HDL Cholesterol TSH Arterial Blood Glucose Arterial Blood Ionized Calcium Urine WBC (Auto) Urine Creatinine Urine Total Protein Crossmatch 04/22/21 04/22/21 04/22/21 13:19 14:16 15:22 WBC RBC Hgb Hct MCH RDW Plt Count Seg Neuts % (Manual) Lymphocytes % (Manual) Nucleated RBC % Seg Neutrophils # Man Lymphocytes # (Manual) PT ABG pH POC ABG pCO2 POC ABG pO2 ABG pO2 ABG O2 Saturation ABG Base Excess ABG Hemoglobin ABG Oxyhemoglobin ABG Potassium ABG Chloride ABG Glucose Oxyhemoglobin Carboxyhemoglobin Sodium Potassium Chloride Carbon Dioxide BUN Creatinine Glucose POC Glucose 147 H 154 H 136 H Hemoglobin A1c Lactic Acid Calcium Phosphorus Magnesium Transferrin AST ALT Alkaline Phosphatase Total Creatine Kinase CK-MB (CK-2) Serum Total Protein Total Protein Albumin Echud-0-Nkqkwvijl Vseqo-8-Vkhwrnomv Gamma Globulins PEP Interpretation HDL Cholesterol TSH Arterial Blood Glucose Arterial Blood Ionized Calcium Urine WBC (Auto) Urine Creatinine Urine Total Protein Crossmatch 04/22/21 04/22/21 04/22/21 15:55 15:55 16:22 WBC RBC Hgb Hct MCH RDW Plt Count Seg Neuts % (Manual) Lymphocytes % (Manual) Nucleated RBC % Seg Neutrophils # Man Lymphocytes # (Manual) PT ABG pH POC ABG pCO2 POC ABG pO2 ABG pO2 ABG O2 Saturation ABG Base Excess ABG Hemoglobin ABG Oxyhemoglobin ABG Potassium ABG Chloride ABG Glucose Oxyhemoglobin Carboxyhemoglobin Sodium 169 H* Potassium Chloride 133.5 H Carbon Dioxide 19 L BUN 94 H Creatinine 3.8 H Glucose 150 H POC Glucose 140 H Hemoglobin A1c 17.1 H Lactic Acid Calcium Phosphorus Magnesium Transferrin AST ALT Alkaline Phosphatase Total Creatine Kinase CK-MB (CK-2) Serum Total Protein Total Protein Albumin Wpclv-3-Mpdisilpn Ntneh-3-Oavxsardf Gamma Globulins PEP Interpretation HDL Cholesterol TSH Arterial Blood Glucose Arterial Blood Ionized Calcium Urine WBC (Auto) Urine Creatinine Urine Total Protein Crossmatch 04/22/21 04/22/21 04/22/21 18:11 18:26 23:19 WBC RBC Hgb Hct MCH RDW Plt Count Seg Neuts % (Manual) Lymphocytes % (Manual) Nucleated RBC % Seg Neutrophils # Man Lymphocytes # (Manual) PT ABG pH POC ABG pCO2 POC ABG pO2 ABG pO2 ABG O2 Saturation ABG Base Excess ABG Hemoglobin ABG Oxyhemoglobin ABG Potassium ABG Chloride ABG Glucose Oxyhemoglobin Carboxyhemoglobin Sodium Potassium Chloride Carbon Dioxide BUN Creatinine Glucose POC Glucose 146 H 188 H Hemoglobin A1c Lactic Acid Calcium Phosphorus Magnesium Transferrin AST ALT Alkaline Phosphatase Total Creatine Kinase 2497 H CK-MB (CK-2) Serum Total Protein Total Protein Albumin Fxwma-6-Kmzbiigud Eeucq-8-Tqjoeztyc Gamma Globulins PEP Interpretation HDL Cholesterol TSH Arterial Blood Glucose Arterial Blood Ionized Calcium Urine WBC (Auto) Urine Creatinine Urine Total Protein Crossmatch 04/23/21 04/23/21 04/23/21 00:27 05:23 07:50 WBC RBC Hgb Hct MCH RDW Plt Count Seg Neuts % (Manual) Lymphocytes % (Manual) Nucleated RBC % Seg Neutrophils # Man Lymphocytes # (Manual) PT ABG pH POC ABG pCO2 POC ABG pO2 ABG pO2 ABG O2 Saturation ABG Base Excess ABG Hemoglobin ABG Oxyhemoglobin ABG Potassium ABG Chloride ABG Glucose Oxyhemoglobin Carboxyhemoglobin Sodium 162 H* Potassium Chloride Carbon Dioxide BUN Creatinine Glucose POC Glucose 212 H 239 H Hemoglobin A1c Lactic Acid Calcium Phosphorus Magnesium Transferrin AST ALT Alkaline Phosphatase Total Creatine Kinase CK-MB (CK-2) Serum Total Protein Total Protein Albumin Olzvg-7-Ezgndplpg Yhkty-4-Oqnhelslx Gamma Globulins PEP Interpretation HDL Cholesterol TSH Arterial Blood Glucose Arterial Blood Ionized Calcium Urine WBC (Auto) Urine Creatinine Urine Total Protein Crossmatch 04/23/21 04/23/21 04/23/21 08:13 08:13 08:13 WBC 11.9 H RBC Hgb Hct MCH 26 L RDW 16.5 H Plt Count 72 L Seg Neuts % (Manual) 80.0 H Lymphocytes % (Manual) 5.0 L Nucleated RBC % Seg Neutrophils # Man 9.5 H Lymphocytes # (Manual) 0.6 L PT ABG pH POC ABG pCO2 POC ABG pO2 ABG pO2 ABG O2 Saturation ABG Base Excess ABG Hemoglobin ABG Oxyhemoglobin ABG Potassium ABG Chloride ABG Glucose Oxyhemoglobin Carboxyhemoglobin Sodium 164 H* Potassium Chloride 128.0 H Carbon Dioxide 21 L BUN 93 H Creatinine 3.8 H Glucose 293 H POC Glucose Hemoglobin A1c Lactic Acid Calcium Phosphorus Magnesium Transferrin AST 99 H ALT 70 H Alkaline Phosphatase 147 H Total Creatine Kinase 1803 H CK-MB (CK-2) Serum Total Protein Total Protein 6.1 L Albumin 2.0 L Hcjah-6-Giohcfxae Qwahk-6-Drbrahfpg Gamma Globulins PEP Interpretation HDL Cholesterol TSH Arterial Blood Glucose Arterial Blood Ionized Calcium Urine WBC (Auto) Urine Creatinine Urine Total Protein Crossmatch 04/23/21 04/23/21 04/23/21 12:06 17:35 18:17 WBC RBC Hgb Hct MCH RDW Plt Count Seg Neuts % (Manual) Lymphocytes % (Manual) Nucleated RBC % Seg Neutrophils # Man Lymphocytes # (Manual) PT ABG pH POC ABG pCO2 POC ABG pO2 ABG pO2 ABG O2 Saturation ABG Base Excess ABG Hemoglobin ABG Oxyhemoglobin ABG Potassium ABG Chloride ABG Glucose Oxyhemoglobin Carboxyhemoglobin Sodium 160 H Potassium Chloride Carbon Dioxide BUN Creatinine Glucose POC Glucose 311 H 370 H Hemoglobin A1c Lactic Acid Calcium Phosphorus Magnesium Transferrin AST ALT Alkaline Phosphatase Total Creatine Kinase CK-MB (CK-2) Serum Total Protein Total Protein Albumin Zguej-5-Sdylxdubu Heurw-8-Vzmgmooch Gamma Globulins PEP Interpretation HDL Cholesterol TSH Arterial Blood Glucose Arterial Blood Ionized Calcium Urine WBC (Auto) Urine Creatinine Urine Total Protein Crossmatch 04/24/21 04/24/21 04/24/21 02:13 06:00 06:00 WBC RBC Hgb Hct MCH 27 L RDW 17.0 H Plt Count 58 L Seg Neuts % (Manual) Lymphocytes % (Manual) 2.0 L Nucleated RBC % Seg Neutrophils # Man 8.9 H Lymphocytes # (Manual) 0.2 L PT ABG pH POC ABG pCO2 POC ABG pO2 ABG pO2 ABG O2 Saturation ABG Base Excess ABG Hemoglobin ABG Oxyhemoglobin ABG Potassium ABG Chloride ABG Glucose Oxyhemoglobin Carboxyhemoglobin Sodium 160 H Potassium Chloride Carbon Dioxide BUN Creatinine Glucose POC Glucose Hemoglobin A1c Lactic Acid Calcium Phosphorus Magnesium 2.90 H Transferrin AST ALT Alkaline Phosphatase Total Creatine Kinase CK-MB (CK-2) Serum Total Protein Total Protein Albumin Gnrjr-0-Mbxzwhctn Arvot-7-Idetepkph Gamma Globulins PEP Interpretation HDL Cholesterol TSH Arterial Blood Glucose Arterial Blood Ionized Calcium Urine WBC (Auto) Urine Creatinine Urine Total Protein Crossmatch 04/24/21 04/24/21 04/24/21 07:46 08:15 11:34 WBC RBC Hgb Hct MCH RDW Plt Count Seg Neuts % (Manual) Lymphocytes % (Manual) Nucleated RBC % Seg Neutrophils # Man Lymphocytes # (Manual) PT ABG pH POC ABG pCO2 POC ABG pO2 ABG pO2 ABG O2 Saturation ABG Base Excess ABG Hemoglobin ABG Oxyhemoglobin ABG Potassium ABG Chloride ABG Glucose Oxyhemoglobin Carboxyhemoglobin Sodium 159 H Potassium Chloride 125.6 H Carbon Dioxide 19 L BUN 94 H Creatinine 3.7 H Glucose 514 H* POC Glucose 395 H 422 H Hemoglobin A1c Lactic Acid Calcium Phosphorus Magnesium Transferrin AST ALT 61 H Alkaline Phosphatase 155 H Total Creatine Kinase CK-MB (CK-2) Serum Total Protein Total Protein 6.1 L Albumin 1.5 L Faomd-7-Zqcbsxdxi Dvfyy-3-Eqthqxxpd Gamma Globulins PEP Interpretation HDL Cholesterol TSH Arterial Blood Glucose Arterial Blood Ionized Calcium Urine WBC (Auto) Urine Creatinine Urine Total Protein Crossmatch 04/24/21 04/24/21 04/24/21 13:11 14:01 15:03 WBC RBC Hgb Hct MCH RDW Plt Count Seg Neuts % (Manual) Lymphocytes % (Manual) Nucleated RBC % Seg Neutrophils # Man Lymphocytes # (Manual) PT ABG pH POC ABG pCO2 POC ABG pO2 ABG pO2 ABG O2 Saturation ABG Base Excess ABG Hemoglobin ABG Oxyhemoglobin ABG Potassium ABG Chloride ABG Glucose Oxyhemoglobin Carboxyhemoglobin Sodium Potassium Chloride Carbon Dioxide BUN Creatinine Glucose POC Glucose 384 H 423 H 418 H Hemoglobin A1c Lactic Acid Calcium Phosphorus Magnesium Transferrin AST ALT Alkaline Phosphatase Total Creatine Kinase CK-MB (CK-2) Serum Total Protein Total Protein Albumin Hxvby-4-Bkbofpovm Qfuvv-4-Emawyrtop Gamma Globulins PEP Interpretation HDL Cholesterol TSH Arterial Blood Glucose Arterial Blood Ionized Calcium Urine WBC (Auto) Urine Creatinine Urine Total Protein Crossmatch 04/24/21 04/24/21 04/24/21 17:29 18:28 19:41 WBC RBC Hgb Hct MCH RDW Plt Count Seg Neuts % (Manual) Lymphocytes % (Manual) Nucleated RBC % Seg Neutrophils # Man Lymphocytes # (Manual) PT ABG pH POC ABG pCO2 POC ABG pO2 ABG pO2 ABG O2 Saturation ABG Base Excess ABG Hemoglobin ABG Oxyhemoglobin ABG Potassium ABG Chloride ABG Glucose Oxyhemoglobin Carboxyhemoglobin Sodium Potassium Chloride Carbon Dioxide BUN Creatinine Glucose POC Glucose 335 H 321 H Hemoglobin A1c Lactic Acid Calcium Phosphorus Magnesium Transferrin 112 L AST ALT Alkaline Phosphatase Total Creatine Kinase CK-MB (CK-2) Serum Total Protein Total Protein Albumin Nhxvg-0-Nevobqpiy Vjtpu-0-Rpjttjvnr Gamma Globulins PEP Interpretation HDL Cholesterol TSH Arterial Blood Glucose Arterial Blood Ionized Calcium Urine WBC (Auto) Urine Creatinine Urine Total Protein Crossmatch 04/24/21 04/25/21 04/25/21 22:33 01:28 02:28 WBC RBC Hgb Hct MCH RDW Plt Count Seg Neuts % (Manual) Lymphocytes % (Manual) Nucleated RBC % Seg Neutrophils # Man Lymphocytes # (Manual) PT ABG pH POC ABG pCO2 POC ABG pO2 ABG pO2 ABG O2 Saturation ABG Base Excess ABG Hemoglobin ABG Oxyhemoglobin ABG Potassium ABG Chloride ABG Glucose Oxyhemoglobin Carboxyhemoglobin Sodium Potassium Chloride Carbon Dioxide BUN Creatinine Glucose POC Glucose 349 H 283 H 247 H Hemoglobin A1c Lactic Acid Calcium Phosphorus Magnesium Transferrin AST ALT Alkaline Phosphatase Total Creatine Kinase CK-MB (CK-2) Serum Total Protein Total Protein Albumin Ujxyn-0-Neqfgfpmt Vnlnv-1-Ebnsfalcy Gamma Globulins PEP Interpretation HDL Cholesterol TSH Arterial Blood Glucose Arterial Blood Ionized Calcium Urine WBC (Auto) Urine Creatinine Urine Total Protein Crossmatch 04/25/21 04/25/21 04/25/21 03:25 04:22 05:40 WBC RBC Hgb Hct MCH RDW Plt Count Seg Neuts % (Manual) Lymphocytes % (Manual) Nucleated RBC % Seg Neutrophils # Man Lymphocytes # (Manual) PT ABG pH POC ABG pCO2 POC ABG pO2 ABG pO2 ABG O2 Saturation ABG Base Excess ABG Hemoglobin ABG Oxyhemoglobin ABG Potassium ABG Chloride ABG Glucose Oxyhemoglobin Carboxyhemoglobin Sodium Potassium Chloride Carbon Dioxide BUN Creatinine Glucose POC Glucose 196 H 207 H 204 H Hemoglobin A1c Lactic Acid Calcium Phosphorus Magnesium Transferrin AST ALT Alkaline Phosphatase Total Creatine Kinase CK-MB (CK-2) Serum Total Protein Total Protein Albumin Ajflv-8-Gcuqaovhn Jctcl-3-Zfknwobsx Gamma Globulins PEP Interpretation HDL Cholesterol TSH Arterial Blood Glucose Arterial Blood Ionized Calcium Urine WBC (Auto) Urine Creatinine Urine Total Protein Crossmatch 04/25/21 04/25/21 04/25/21 05:45 06:43 07:37 WBC RBC Hgb Hct MCH 27 L RDW 17.0 H Plt Count 64 L Seg Neuts % (Manual) 84.0 H Lymphocytes % (Manual) 6.0 L Nucleated RBC % 1.0 H Seg Neutrophils # Man Lymphocytes # (Manual) 0.4 L PT ABG pH POC ABG pCO2 POC ABG pO2 ABG pO2 ABG O2 Saturation ABG Base Excess ABG Hemoglobin ABG Oxyhemoglobin ABG Potassium ABG Chloride ABG Glucose Oxyhemoglobin Carboxyhemoglobin Sodium Potassium Chloride Carbon Dioxide BUN Creatinine Glucose POC Glucose 238 H 201 H Hemoglobin A1c Lactic Acid Calcium Phosphorus Magnesium Transferrin AST ALT Alkaline Phosphatase Total Creatine Kinase CK-MB (CK-2) Serum Total Protein Total Protein Albumin Hlydr-5-Cmtrjsqzr Thqvu-3-Aibhpnfgj Gamma Globulins PEP Interpretation HDL Cholesterol TSH Arterial Blood Glucose Arterial Blood Ionized Calcium Urine WBC (Auto) Urine Creatinine Urine Total Protein Crossmatch 04/25/21 04/25/21 04/25/21 08:11 08:11 08:41 WBC RBC Hgb Hct MCH RDW Plt Count Seg Neuts % (Manual) Lymphocytes % (Manual) Nucleated RBC % Seg Neutrophils # Man Lymphocytes # (Manual) PT ABG pH POC ABG pCO2 POC ABG pO2 ABG pO2 ABG O2 Saturation ABG Base Excess ABG Hemoglobin ABG Oxyhemoglobin ABG Potassium ABG Chloride ABG Glucose Oxyhemoglobin Carboxyhemoglobin Sodium 148 H D Potassium Chloride 115.7 H Carbon Dioxide 21 L BUN 83 H Creatinine 3.6 H Glucose 247 H POC Glucose 220 H Hemoglobin A1c Lactic Acid Calcium Phosphorus Magnesium 2.50 H Transferrin AST 63 H ALT 62 H Alkaline Phosphatase 143 H Total Creatine Kinase CK-MB (CK-2) Serum Total Protein Total Protein 5.4 L Albumin 1.4 L Tnoas-7-Mrayryidp Qdjkj-0-Lytlbxjyr Gamma Globulins PEP Interpretation HDL Cholesterol TSH Arterial Blood Glucose Arterial Blood Ionized Calcium Urine WBC (Auto) Urine Creatinine Urine Total Protein Crossmatch 04/25/21 04/25/21 04/25/21 09:22 10:31 11:44 WBC RBC Hgb Hct MCH RDW Plt Count Seg Neuts % (Manual) Lymphocytes % (Manual) Nucleated RBC % Seg Neutrophils # Man Lymphocytes # (Manual) PT ABG pH POC ABG pCO2 POC ABG pO2 ABG pO2 ABG O2 Saturation ABG Base Excess ABG Hemoglobin ABG Oxyhemoglobin ABG Potassium ABG Chloride ABG Glucose Oxyhemoglobin Carboxyhemoglobin Sodium Potassium Chloride Carbon Dioxide BUN Creatinine Glucose POC Glucose 228 H 215 H 191 H Hemoglobin A1c Lactic Acid Calcium Phosphorus Magnesium Transferrin AST ALT Alkaline Phosphatase Total Creatine Kinase CK-MB (CK-2) Serum Total Protein Total Protein Albumin Skkvd-3-Tkkywzver Wtdtb-5-Ijxybjzfz Gamma Globulins PEP Interpretation HDL Cholesterol TSH Arterial Blood Glucose Arterial Blood Ionized Calcium Urine WBC (Auto) Urine Creatinine Urine Total Protein Crossmatch 04/25/21 04/25/21 04/25/21 12:23 13:48 14:11 WBC RBC Hgb Hct MCH RDW Plt Count Seg Neuts % (Manual) Lymphocytes % (Manual) Nucleated RBC % Seg Neutrophils # Man Lymphocytes # (Manual) PT ABG pH POC ABG pCO2 POC ABG pO2 ABG pO2 ABG O2 Saturation ABG Base Excess ABG Hemoglobin ABG Oxyhemoglobin ABG Potassium ABG Chloride ABG Glucose Oxyhemoglobin Carboxyhemoglobin Sodium Potassium Chloride Carbon Dioxide BUN Creatinine Glucose POC Glucose 229 H 177 H 161 H Hemoglobin A1c Lactic Acid Calcium Phosphorus Magnesium Transferrin AST ALT Alkaline Phosphatase Total Creatine Kinase CK-MB (CK-2) Serum Total Protein Total Protein Albumin Ikkly-0-Iqcnseqel Lhbga-8-Aazsyjnbl Gamma Globulins PEP Interpretation HDL Cholesterol TSH Arterial Blood Glucose Arterial Blood Ionized Calcium Urine WBC (Auto) Urine Creatinine Urine Total Protein Crossmatch 04/25/21 04/25/21 04/26/21 18:01 21:31 01:19 WBC RBC Hgb Hct MCH RDW Plt Count Seg Neuts % (Manual) Lymphocytes % (Manual) Nucleated RBC % Seg Neutrophils # Man Lymphocytes # (Manual) PT ABG pH POC ABG pCO2 POC ABG pO2 ABG pO2 ABG O2 Saturation ABG Base Excess ABG Hemoglobin ABG Oxyhemoglobin ABG Potassium ABG Chloride ABG Glucose Oxyhemoglobin Carboxyhemoglobin Sodium Potassium Chloride Carbon Dioxide BUN Creatinine Glucose POC Glucose 264 H 371 H 356 H Hemoglobin A1c Lactic Acid Calcium Phosphorus Magnesium Transferrin AST ALT Alkaline Phosphatase Total Creatine Kinase CK-MB (CK-2) Serum Total Protein Total Protein Albumin Ibgbv-3-Dehpqhyom Tycbh-4-Dhnowezjm Gamma Globulins PEP Interpretation HDL Cholesterol TSH Arterial Blood Glucose Arterial Blood Ionized Calcium Urine WBC (Auto) Urine Creatinine Urine Total Protein Crossmatch 04/26/21 04/26/21 04/26/21 06:31 09:13 09:33 WBC RBC Hgb Hct MCH 27 L RDW 16.9 H Plt Count 58 L Seg Neuts % (Manual) 77.0 H Lymphocytes % (Manual) 4.0 L Nucleated RBC % 2.0 H Seg Neutrophils # Man Lymphocytes # (Manual) 0.3 L PT ABG pH POC ABG pCO2 POC ABG pO2 ABG pO2 ABG O2 Saturation ABG Base Excess ABG Hemoglobin ABG Oxyhemoglobin ABG Potassium ABG Chloride ABG Glucose Oxyhemoglobin Carboxyhemoglobin Sodium Potassium Chloride Carbon Dioxide BUN Creatinine Glucose POC Glucose 428 H 454 H Hemoglobin A1c Lactic Acid Calcium Phosphorus Magnesium Transferrin AST ALT Alkaline Phosphatase Total Creatine Kinase CK-MB (CK-2) Serum Total Protein Total Protein Albumin Kvvco-5-Zabkjarul Dxwzm-3-Fwuprejnh Gamma Globulins PEP Interpretation HDL Cholesterol TSH Arterial Blood Glucose Arterial Blood Ionized Calcium Urine WBC (Auto) Urine Creatinine Urine Total Protein Crossmatch 0104/26/21 04/26/21 09:33 09:33 11:00 WBC RBC Hgb Hct MCH RDW Plt Count Seg Neuts % (Manual) Lymphocytes % (Manual) Nucleated RBC % Seg Neutrophils # Man Lymphocytes # (Manual) PT ABG pH 7.281 L POC ABG pCO2 POC ABG pO2 66.4 L ABG pO2 ABG O2 Saturation ABG Base Excess ABG Hemoglobin 10.9 L ABG Oxyhemoglobin 91 L ABG Potassium ABG Chloride ABG Glucose 521 H Oxyhemoglobin Carboxyhemoglobin Sodium Potassium Chloride Carbon Dioxide 19 L BUN 98 H Creatinine 3.8 H Glucose 530 H* POC Glucose Hemoglobin A1c Lactic Acid Calcium 8.1 L Phosphorus 5.60 H D Magnesium Transferrin AST 60 H ALT 72 H Alkaline Phosphatase 168 H Total Creatine Kinase CK-MB (CK-2) Serum Total Protein Total Protein 4.6 L Albumin 1.7 L Udjrj-1-Cxjabhbpo Atnbk-2-Byehtdgta Gamma Globulins PEP Interpretation HDL Cholesterol TSH Arterial Blood Glucose 521 H Arterial Blood Ionized Calcium Urine WBC (Auto) Urine Creatinine Urine Total Protein Crossmatch 04/26/21 04/26/21 04/26/21 12:36 15:39 16:18 WBC RBC Hgb Hct MCH RDW Plt Count Seg Neuts % (Manual) Lymphocytes % (Manual) Nucleated RBC % Seg Neutrophils # Man Lymphocytes # (Manual) PT ABG pH 7.275 L POC ABG pCO2 POC ABG pO2 63.4 L ABG pO2 ABG O2 Saturation ABG Base Excess ABG Hemoglobin 8.4 L ABG Oxyhemoglobin 89.5 L ABG Potassium ABG Chloride 108.0 H ABG Glucose 404 H Oxyhemoglobin Carboxyhemoglobin Sodium Potassium Chloride Carbon Dioxide BUN Creatinine Glucose POC Glucose 414 H 324 H Hemoglobin A1c Lactic Acid Calcium Phosphorus Magnesium Transferrin AST ALT Alkaline Phosphatase Total Creatine Kinase CK-MB (CK-2) Serum Total Protein Total Protein Albumin Edwrs-0-Hyiokfitn Imsqc-0-Lxgycbcjg Gamma Globulins PEP Interpretation HDL Cholesterol TSH Arterial Blood Glucose 404 H Arterial Blood Ionized Calcium Urine WBC (Auto) Urine Creatinine Urine Total Protein Crossmatch 04/26/21 04/27/21 04/27/21 21:14 00:07 05:47 WBC RBC Hgb Hct MCH RDW Plt Count Seg Neuts % (Manual) Lymphocytes % (Manual) Nucleated RBC % Seg Neutrophils # Man Lymphocytes # (Manual) PT ABG pH POC ABG pCO2 POC ABG pO2 ABG pO2 ABG O2 Saturation ABG Base Excess ABG Hemoglobin ABG Oxyhemoglobin ABG Potassium ABG Chloride ABG Glucose Oxyhemoglobin Carboxyhemoglobin Sodium Potassium Chloride Carbon Dioxide BUN Creatinine Glucose POC Glucose 242 H 282 H 214 H Hemoglobin A1c Lactic Acid Calcium Phosphorus Magnesium Transferrin AST ALT Alkaline Phosphatase Total Creatine Kinase CK-MB (CK-2) Serum Total Protein Total Protein Albumin Yvtha-3-Zpezxhvoc Qiafq-1-Yovbomgzj Gamma Globulins PEP Interpretation HDL Cholesterol TSH Arterial Blood Glucose Arterial Blood Ionized Calcium Urine WBC (Auto) Urine Creatinine Urine Total Protein Crossmatch 04/27/21 04/27/21 04/27/21 06:23 07:43 08:30 WBC RBC Hgb Hct MCH RDW Plt Count Seg Neuts % (Manual) Lymphocytes % (Manual) Nucleated RBC % Seg Neutrophils # Man Lymphocytes # (Manual) PT ABG pH 7.309 L POC ABG pCO2 POC ABG pO2 70.6 L ABG pO2 ABG O2 Saturation ABG Base Excess ABG Hemoglobin 9.16 L ABG Oxyhemoglobin 92.4 L ABG Potassium ABG Chloride ABG Glucose Oxyhemoglobin Carboxyhemoglobin Sodium Potassium Chloride 110.1 H Carbon Dioxide 15 L BUN 109 H Creatinine 4.3 H Glucose 218 H POC Glucose 187 H Hemoglobin A1c Lactic Acid Calcium Phosphorus Magnesium Transferrin AST 53 H ALT Alkaline Phosphatase 148 H Total Creatine Kinase 1000 H CK-MB (CK-2) Serum Total Protein Total Protein 5.2 L Albumin 1.2 L Iwunk-1-Dpgdvlhlc Tolhl-4-Etsumynzh Gamma Globulins PEP Interpretation HDL Cholesterol TSH Arterial Blood Glucose Arterial Blood Ionized Calcium Urine WBC (Auto) Urine Creatinine Urine Total Protein Crossmatch 04/27/21 04/27/21 04/27/21 11:54 21:08 23:28 WBC RBC Hgb Hct MCH RDW Plt Count Seg Neuts % (Manual) Lymphocytes % (Manual) Nucleated RBC % Seg Neutrophils # Man Lymphocytes # (Manual) PT ABG pH POC ABG pCO2 POC ABG pO2 ABG pO2 ABG O2 Saturation ABG Base Excess ABG Hemoglobin ABG Oxyhemoglobin ABG Potassium ABG Chloride ABG Glucose Oxyhemoglobin Carboxyhemoglobin Sodium Potassium Chloride Carbon Dioxide BUN Creatinine Glucose POC Glucose 147 H 136 H 201 H Hemoglobin A1c Lactic Acid Calcium Phosphorus Magnesium Transferrin AST ALT Alkaline Phosphatase Total Creatine Kinase CK-MB (CK-2) Serum Total Protein Total Protein Albumin Rgdmq-4-Qlcaijkqe Lrepq-5-Jklkxlnmz Gamma Globulins PEP Interpretation HDL Cholesterol TSH Arterial Blood Glucose Arterial Blood Ionized Calcium Urine WBC (Auto) Urine Creatinine Urine Total Protein Crossmatch 04/28/21 04/28/21 04/28/21 04:00 04:00 05:00 WBC 12.6 H RBC 3.59 L Hgb 9.4 L Hct MCH 26 L RDW 16.6 H Plt Count 111 L Seg Neuts % (Manual) Lymphocytes % (Manual) 1.0 L Nucleated RBC % 4.0 H Seg Neutrophils # Man 11.6 H Lymphocytes # (Manual) 0.1 L PT 15.3 H ABG pH POC ABG pCO2 POC ABG pO2 ABG pO2 ABG O2 Saturation ABG Base Excess ABG Hemoglobin ABG Oxyhemoglobin ABG Potassium ABG Chloride ABG Glucose Oxyhemoglobin Carboxyhemoglobin Sodium 147 H Potassium 3.5 L D Chloride Carbon Dioxide BUN 79 H Creatinine 3.8 H Glucose 194 H POC Glucose Hemoglobin A1c Lactic Acid Calcium 8.1 L Phosphorus Magnesium Transferrin AST ALT Alkaline Phosphatase Total Creatine Kinase CK-MB (CK-2) Serum Total Protein Total Protein Albumin Fvkvo-7-Ovylqgoyw Wcbtt-9-Omhvgqlhs Gamma Globulins PEP Interpretation HDL Cholesterol TSH Arterial Blood Glucose Arterial Blood Ionized Calcium Urine WBC (Auto) Urine Creatinine Urine Total Protein Crossmatch 04/28/21 04/28/21 04/28/21 05:08 05:18 11:04 WBC RBC Hgb Hct MCH RDW Plt Count Seg Neuts % (Manual) Lymphocytes % (Manual) Nucleated RBC % Seg Neutrophils # Man Lymphocytes # (Manual) PT ABG pH POC ABG pCO2 POC ABG pO2 66.5 L ABG pO2 ABG O2 Saturation ABG Base Excess ABG Hemoglobin 9.7 L ABG Oxyhemoglobin 92.5 L ABG Potassium 3.2 L ABG Chloride ABG Glucose 200 H Oxyhemoglobin Carboxyhemoglobin Sodium Potassium Chloride Carbon Dioxide BUN Creatinine Glucose POC Glucose 183 H 174 H Hemoglobin A1c Lactic Acid Calcium Phosphorus Magnesium Transferrin AST ALT Alkaline Phosphatase Total Creatine Kinase CK-MB (CK-2) Serum Total Protein Total Protein Albumin Ufvus-9-Nzvrstveg Nyzbp-8-Lphlyxzvj Gamma Globulins PEP Interpretation HDL Cholesterol TSH Arterial Blood Glucose 200 H Arterial Blood Ionized Calcium 4.5 L Urine WBC (Auto) Urine Creatinine Urine Total Protein Crossmatch 04/28/21 04/28/21 04/28/21 17:16 21:14 23:41 WBC RBC Hgb Hct MCH RDW Plt Count Seg Neuts % (Manual) Lymphocytes % (Manual) Nucleated RBC % Seg Neutrophils # Man Lymphocytes # (Manual) PT ABG pH POC ABG pCO2 POC ABG pO2 ABG pO2 ABG O2 Saturation ABG Base Excess ABG Hemoglobin ABG Oxyhemoglobin ABG Potassium ABG Chloride ABG Glucose Oxyhemoglobin Carboxyhemoglobin Sodium Potassium Chloride Carbon Dioxide BUN Creatinine Glucose POC Glucose 135 H 134 H 171 H Hemoglobin A1c Lactic Acid Calcium Phosphorus Magnesium Transferrin AST ALT Alkaline Phosphatase Total Creatine Kinase CK-MB (CK-2) Serum Total Protein Total Protein Albumin Kvyoa-6-Mpuyrqoeo Ixxio-3-Elussenyu Gamma Globulins PEP Interpretation HDL Cholesterol TSH Arterial Blood Glucose Arterial Blood Ionized Calcium Urine WBC (Auto) Urine Creatinine Urine Total Protein Crossmatch 04/29/21 04/29/21 04/29/21 01:16 04:00 04:00 WBC 13.3 H RBC 3.12 L Hgb 8.3 L Hct 26.2 L MCH 27 L RDW 16.3 H Plt Count 132 L Seg Neuts % (Manual) Lymphocytes % (Manual) Nucleated RBC % Seg Neutrophils # Man Lymphocytes # (Manual) PT ABG pH POC ABG pCO2 POC ABG pO2 ABG pO2 ABG O2 Saturation ABG Base Excess ABG Hemoglobin ABG Oxyhemoglobin ABG Potassium ABG Chloride ABG Glucose Oxyhemoglobin Carboxyhemoglobin Sodium Potassium Chloride Carbon Dioxide BUN 63 H Creatinine 3.4 H Glucose 249 H POC Glucose 236 H Hemoglobin A1c Lactic Acid Calcium 8.2 L Phosphorus Magnesium Transferrin AST 61 H ALT 71 H Alkaline Phosphatase 170 H Total Creatine Kinase CK-MB (CK-2) Serum Total Protein Total Protein 5.1 L Albumin 1.6 L Qnkej-4-Qoyurlrqq Oosac-3-Ckzkugnuj Gamma Globulins PEP Interpretation HDL Cholesterol TSH Arterial Blood Glucose Arterial Blood Ionized Calcium Urine WBC (Auto) Urine Creatinine Urine Total Protein Crossmatch 04/29/21 04/29/21 04/29/21 11:35 13:30 16:01 WBC RBC Hgb Hct MCH RDW Plt Count Seg Neuts % (Manual) Lymphocytes % (Manual) Nucleated RBC % Seg Neutrophils # Man Lymphocytes # (Manual) PT ABG pH POC ABG pCO2 POC ABG pO2 ABG pO2 ABG O2 Saturation ABG Base Excess ABG Hemoglobin ABG Oxyhemoglobin ABG Potassium ABG Chloride ABG Glucose Oxyhemoglobin Carboxyhemoglobin Sodium Potassium Chloride Carbon Dioxide BUN Creatinine Glucose POC Glucose 320 H 297 H Hemoglobin A1c Lactic Acid Calcium Phosphorus Magnesium Transferrin AST ALT Alkaline Phosphatase Total Creatine Kinase CK-MB (CK-2) Serum Total Protein Total Protein Albumin Zeigb-4-Fwrlwdenv Lpymp-1-Xfcobmjvl Gamma Globulins PEP Interpretation HDL Cholesterol TSH Arterial Blood Glucose Arterial Blood Ionized Calcium Urine WBC (Auto) > 182.0 H Urine Creatinine Urine Total Protein Crossmatch 04/29/21 04/29/21 04/30/21 21:58 23:35 04:00 WBC 11.4 H RBC 3.27 L Hgb 8.7 L Hct 27.5 L MCH 27 L RDW 16.6 H Plt Count Seg Neuts % (Manual) Lymphocytes % (Manual) Nucleated RBC % Seg Neutrophils # Man Lymphocytes # (Manual) PT ABG pH POC ABG pCO2 POC ABG pO2 ABG pO2 ABG O2 Saturation ABG Base Excess ABG Hemoglobin ABG Oxyhemoglobin ABG Potassium ABG Chloride ABG Glucose Oxyhemoglobin Carboxyhemoglobin Sodium Potassium Chloride Carbon Dioxide BUN Creatinine Glucose POC Glucose 260 H 254 H Hemoglobin A1c Lactic Acid Calcium Phosphorus Magnesium Transferrin AST ALT Alkaline Phosphatase Total Creatine Kinase CK-MB (CK-2) Serum Total Protein Total Protein Albumin Qtskf-1-Updzifwwa Hqscb-4-Hmeblexcf Gamma Globulins PEP Interpretation HDL Cholesterol TSH Arterial Blood Glucose Arterial Blood Ionized Calcium Urine WBC (Auto) Urine Creatinine Urine Total Protein Crossmatch 04/30/21 04/30/21 04/30/21 04:00 05:17 05:31 WBC RBC Hgb Hct MCH RDW Plt Count Seg Neuts % (Manual) Lymphocytes % (Manual) Nucleated RBC % Seg Neutrophils # Man Lymphocytes # (Manual) PT ABG pH 7.452 H POC ABG pCO2 30.5 L POC ABG pO2 54.5 L ABG pO2 ABG O2 Saturation ABG Base Excess ABG Hemoglobin 10.1 L ABG Oxyhemoglobin 87.4 L ABG Potassium 2.9 L ABG Chloride ABG Glucose 305 H Oxyhemoglobin Carboxyhemoglobin Sodium Potassium 3.1 L Chloride Carbon Dioxide BUN 79 H Creatinine 3.9 H Glucose 275 H POC Glucose 267 H Hemoglobin A1c Lactic Acid Calcium Phosphorus 5.60 H D Magnesium Transferrin AST ALT Alkaline Phosphatase Total Creatine Kinase CK-MB (CK-2) Serum Total Protein Total Protein Albumin Nhvoy-8-Tgnfrldhg Nrput-2-Lhfuqstad Gamma Globulins PEP Interpretation HDL Cholesterol TSH Arterial Blood Glucose 305 H Arterial Blood Ionized Calcium Urine WBC (Auto) Urine Creatinine Urine Total Protein Crossmatch 04/30/21 04/30/21 04/30/21 12:31 17:50 22:24 WBC RBC Hgb Hct MCH RDW Plt Count Seg Neuts % (Manual) Lymphocytes % (Manual) Nucleated RBC % Seg Neutrophils # Man Lymphocytes # (Manual) PT ABG pH POC ABG pCO2 POC ABG pO2 ABG pO2 ABG O2 Saturation ABG Base Excess ABG Hemoglobin ABG Oxyhemoglobin ABG Potassium ABG Chloride ABG Glucose Oxyhemoglobin Carboxyhemoglobin Sodium Potassium Chloride Carbon Dioxide BUN Creatinine Glucose POC Glucose 259 H 161 H 146 H Hemoglobin A1c Lactic Acid Calcium Phosphorus Magnesium Transferrin AST ALT Alkaline Phosphatase Total Creatine Kinase CK-MB (CK-2) Serum Total Protein Total Protein Albumin Dyolu-2-Taobnwevx Dbgkv-7-Sxrcozvmy Gamma Globulins PEP Interpretation HDL Cholesterol TSH Arterial Blood Glucose Arterial Blood Ionized Calcium Urine WBC (Auto) Urine Creatinine Urine Total Protein Crossmatch 05/01/21 05/01/21 05/01/21 00:09 03:30 04:00 WBC 12.0 H RBC 3.08 L Hgb 8.1 L Hct 25.6 L MCH 26 L RDW 16.3 H Plt Count Seg Neuts % (Manual) Lymphocytes % (Manual) Nucleated RBC % Seg Neutrophils # Man Lymphocytes # (Manual) PT ABG pH 7.493 H POC ABG pCO2 POC ABG pO2 ABG pO2 ABG O2 Saturation ABG Base Excess ABG Hemoglobin 9.3 L ABG Oxyhemoglobin ABG Potassium ABG Chloride ABG Glucose 167 H Oxyhemoglobin Carboxyhemoglobin 0.4 L Sodium Potassium Chloride Carbon Dioxide BUN Creatinine Glucose POC Glucose 149 H Hemoglobin A1c Lactic Acid Calcium Phosphorus Magnesium Transferrin AST ALT Alkaline Phosphatase Total Creatine Kinase CK-MB (CK-2) Serum Total Protein Total Protein Albumin Hbbpr-4-Dhvjtzxgi Orhey-8-Tuotjrngk Gamma Globulins PEP Interpretation HDL Cholesterol TSH Arterial Blood Glucose 167 H Arterial Blood Ionized Calcium Urine WBC (Auto) Urine Creatinine Urine Total Protein Crossmatch 05/01/21 05/01/21 05/01/21 04:00 05:48 11:49 WBC RBC Hgb Hct MCH RDW Plt Count Seg Neuts % (Manual) Lymphocytes % (Manual) Nucleated RBC % Seg Neutrophils # Man Lymphocytes # (Manual) PT ABG pH POC ABG pCO2 POC ABG pO2 ABG pO2 ABG O2 Saturation ABG Base Excess ABG Hemoglobin ABG Oxyhemoglobin ABG Potassium ABG Chloride ABG Glucose Oxyhemoglobin Carboxyhemoglobin Sodium Potassium 3.5 L Chloride Carbon Dioxide BUN 62 H Creatinine 3.3 H Glucose 179 H POC Glucose 197 H 167 H Hemoglobin A1c Lactic Acid Calcium 8.3 L Phosphorus Magnesium Transferrin AST ALT Alkaline Phosphatase Total Creatine Kinase CK-MB (CK-2) Serum Total Protein Total Protein Albumin Rhase-6-Ombinaiqi Mifpw-5-Jnnnmgzrz Gamma Globulins PEP Interpretation HDL Cholesterol TSH Arterial Blood Glucose Arterial Blood Ionized Calcium Urine WBC (Auto) Urine Creatinine Urine Total Protein Crossmatch 05/01/21 05/01/21 05/02/21 16:24 23:25 04:00 WBC 14.2 H RBC 2.61 L Hgb 6.9 L Hct 22.1 L MCH 27 L RDW 16.1 H Plt Count Seg Neuts % (Manual) Lymphocytes % (Manual) Nucleated RBC % Seg Neutrophils # Man Lymphocytes # (Manual) PT ABG pH POC ABG pCO2 POC ABG pO2 ABG pO2 ABG O2 Saturation ABG Base Excess ABG Hemoglobin ABG Oxyhemoglobin ABG Potassium ABG Chloride ABG Glucose Oxyhemoglobin Carboxyhemoglobin Sodium Potassium Chloride Carbon Dioxide BUN Creatinine Glucose POC Glucose 157 H 147 H Hemoglobin A1c Lactic Acid Calcium Phosphorus Magnesium Transferrin AST ALT Alkaline Phosphatase Total Creatine Kinase CK-MB (CK-2) Serum Total Protein Total Protein Albumin Oxsjj-8-Xplxwdfsp Gyhec-8-Iwknxhmxh Gamma Globulins PEP Interpretation HDL Cholesterol TSH Arterial Blood Glucose Arterial Blood Ionized Calcium Urine WBC (Auto) Urine Creatinine Urine Total Protein Crossmatch 05/02/21 05/02/21 05/02/21 04:00 04:34 05:23 WBC RBC Hgb Hct MCH RDW Plt Count Seg Neuts % (Manual) Lymphocytes % (Manual) Nucleated RBC % Seg Neutrophils # Man Lymphocytes # (Manual) PT ABG pH 7.487 H POC ABG pCO2 POC ABG pO2 78.6 L ABG pO2 ABG O2 Saturation ABG Base Excess ABG Hemoglobin 11.5 L ABG Oxyhemoglobin ABG Potassium ABG Chloride ABG Glucose 122 H Oxyhemoglobin Carboxyhemoglobin Sodium Potassium Chloride Carbon Dioxide BUN 49 H Creatinine 2.8 H Glucose 117 H POC Glucose 119 H Hemoglobin A1c Lactic Acid Calcium Phosphorus Magnesium Transferrin AST ALT Alkaline Phosphatase Total Creatine Kinase CK-MB (CK-2) Serum Total Protein Total Protein Albumin Xnrqx-3-Aequudpyi Sjkdg-5-Ftyeijuon Gamma Globulins PEP Interpretation HDL Cholesterol TSH Arterial Blood Glucose 122 H Arterial Blood Ionized Calcium Urine WBC (Auto) Urine Creatinine Urine Total Protein Crossmatch 05/02/21 05/02/21 05/02/21 12:00 12:04 17:29 WBC RBC Hgb Hct MCH RDW Plt Count Seg Neuts % (Manual) Lymphocytes % (Manual) Nucleated RBC % Seg Neutrophils # Man Lymphocytes # (Manual) PT ABG pH POC ABG pCO2 POC ABG pO2 ABG pO2 ABG O2 Saturation ABG Base Excess ABG Hemoglobin ABG Oxyhemoglobin ABG Potassium ABG Chloride ABG Glucose Oxyhemoglobin Carboxyhemoglobin Sodium Potassium Chloride Carbon Dioxide BUN Creatinine Glucose POC Glucose 115 H 120 H Hemoglobin A1c Lactic Acid Calcium Phosphorus Magnesium Transferrin AST ALT Alkaline Phosphatase Total Creatine Kinase CK-MB (CK-2) Serum Total Protein Total Protein Albumin Ryubz-4-Vqihmbpjg Xcbqa-6-Wzxxbpptb Gamma Globulins PEP Interpretation HDL Cholesterol TSH Arterial Blood Glucose Arterial Blood Ionized Calcium Urine WBC (Auto) Urine Creatinine Urine Total Protein Crossmatch See Detail 05/02/21 05/03/21 05/03/21 23:36 04:00 04:00 WBC 13.9 H RBC 3.22 L Hgb 8.7 L Hct 27.4 L MCH 27 L RDW 15.8 H Plt Count Seg Neuts % (Manual) Lymphocytes % (Manual) Nucleated RBC % Seg Neutrophils # Man Lymphocytes # (Manual) PT ABG pH POC ABG pCO2 POC ABG pO2 ABG pO2 ABG O2 Saturation ABG Base Excess ABG Hemoglobin ABG Oxyhemoglobin ABG Potassium ABG Chloride ABG Glucose Oxyhemoglobin Carboxyhemoglobin Sodium 146 H Potassium 3.5 L Chloride 107.5 H Carbon Dioxide BUN 40 H Creatinine 2.5 H Glucose 104 H POC Glucose 130 H Hemoglobin A1c Lactic Acid Calcium Phosphorus Magnesium Transferrin AST 53 H ALT Alkaline Phosphatase 149 H Total Creatine Kinase CK-MB (CK-2) Serum Total Protein Total Protein 5.2 L Albumin 1.5 L Azypr-2-Ujbypvbcv Yxomr-4-Hlziuwetp Gamma Globulins PEP Interpretation HDL Cholesterol TSH Arterial Blood Glucose Arterial Blood Ionized Calcium Urine WBC (Auto) Urine Creatinine Urine Total Protein Crossmatch 05/03/21 05/04/21 05/04/21 17:26 01:24 04:48 WBC 14.3 H RBC 3.14 L Hgb 8.5 L Hct 26.3 L MCH 27 L RDW 15.8 H Plt Count Seg Neuts % (Manual) Lymphocytes % (Manual) Nucleated RBC % Seg Neutrophils # Man Lymphocytes # (Manual) PT ABG pH POC ABG pCO2 POC ABG pO2 ABG pO2 ABG O2 Saturation ABG Base Excess ABG Hemoglobin ABG Oxyhemoglobin ABG Potassium ABG Chloride ABG Glucose Oxyhemoglobin Carboxyhemoglobin Sodium Potassium Chloride Carbon Dioxide BUN Creatinine Glucose POC Glucose 123 H 146 H Hemoglobin A1c Lactic Acid Calcium Phosphorus Magnesium Transferrin AST ALT Alkaline Phosphatase Total Creatine Kinase CK-MB (CK-2) Serum Total Protein Total Protein Albumin Hsmow-0-Obwzimksl Crfuw-4-Izxvjapdj Gamma Globulins PEP Interpretation HDL Cholesterol TSH Arterial Blood Glucose Arterial Blood Ionized Calcium Urine WBC (Auto) Urine Creatinine Urine Total Protein Crossmatch 05/04/21 05/04/21 05/04/21 04:48 05:15 11:24 WBC RBC Hgb Hct MCH RDW Plt Count Seg Neuts % (Manual) Lymphocytes % (Manual) Nucleated RBC % Seg Neutrophils # Man Lymphocytes # (Manual) PT ABG pH POC ABG pCO2 POC ABG pO2 ABG pO2 ABG O2 Saturation ABG Base Excess ABG Hemoglobin ABG Oxyhemoglobin ABG Potassium ABG Chloride ABG Glucose Oxyhemoglobin Carboxyhemoglobin Sodium Potassium 3.5 L Chloride Carbon Dioxide BUN 58 H Creatinine 3.4 H Glucose 168 H POC Glucose 162 H 145 H Hemoglobin A1c Lactic Acid Calcium Phosphorus 5.30 H Magnesium Transferrin AST ALT Alkaline Phosphatase Total Creatine Kinase CK-MB (CK-2) Serum Total Protein Total Protein Albumin Fkktu-2-Rrgznjqlk Jwcmj-6-Uoxotwfyi Gamma Globulins PEP Interpretation HDL Cholesterol 24 L TSH Arterial Blood Glucose Arterial Blood Ionized Calcium Urine WBC (Auto) Urine Creatinine Urine Total Protein Crossmatch 05/04/21 05/04/21 05/05/21 16:01 23:32 04:00 WBC RBC Hgb Hct MCH RDW Plt Count Seg Neuts % (Manual) Lymphocytes % (Manual) Nucleated RBC % Seg Neutrophils # Man Lymphocytes # (Manual) PT ABG pH POC ABG pCO2 POC ABG pO2 ABG pO2 ABG O2 Saturation ABG Base Excess ABG Hemoglobin ABG Oxyhemoglobin ABG Potassium ABG Chloride ABG Glucose Oxyhemoglobin Carboxyhemoglobin Sodium Potassium 3.4 L Chloride Carbon Dioxide BUN 43 H Creatinine 2.7 H Glucose 124 H POC Glucose 148 H 134 H Hemoglobin A1c Lactic Acid Calcium 8.2 L Phosphorus Magnesium Transferrin AST ALT Alkaline Phosphatase Total Creatine Kinase CK-MB (CK-2) Serum Total Protein Total Protein Albumin Ysylp-7-Zbqazpdeq Kzzfe-8-Duelngmof Gamma Globulins PEP Interpretation HDL Cholesterol TSH Arterial Blood Glucose Arterial Blood Ionized Calcium Urine WBC (Auto) Urine Creatinine Urine Total Protein Crossmatch 05/05/21 05/06/21 05/06/21 05:14 00:01 04:00 WBC RBC Hgb Hct MCH RDW Plt Count Seg Neuts % (Manual) Lymphocytes % (Manual) Nucleated RBC % Seg Neutrophils # Man Lymphocytes # (Manual) PT ABG pH POC ABG pCO2 POC ABG pO2 ABG pO2 ABG O2 Saturation ABG Base Excess ABG Hemoglobin ABG Oxyhemoglobin ABG Potassium ABG Chloride ABG Glucose Oxyhemoglobin Carboxyhemoglobin Sodium Potassium 3.2 L Chloride Carbon Dioxide BUN 56 H Creatinine 3.0 H Glucose 110 H POC Glucose 120 H 120 H Hemoglobin A1c Lactic Acid Calcium 7.8 L Phosphorus 4.60 H Magnesium Transferrin AST ALT Alkaline Phosphatase Total Creatine Kinase CK-MB (CK-2) Serum Total Protein Total Protein Albumin Tzbxv-5-Gbqvdkcji Pwyap-5-Iizvmchzr Gamma Globulins PEP Interpretation HDL Cholesterol TSH Arterial Blood Glucose Arterial Blood Ionized Calcium Urine WBC (Auto) Urine Creatinine Urine Total Protein Crossmatch 05/06/21 05/06/21 05/06/21 04:27 05:15 17:37 WBC RBC 3.03 L Hgb 8.3 L Hct 25.4 L MCH 27 L RDW Plt Count Seg Neuts % (Manual) Lymphocytes % (Manual) Nucleated RBC % Seg Neutrophils # Man Lymphocytes # (Manual) PT ABG pH POC ABG pCO2 POC ABG pO2 ABG pO2 ABG O2 Saturation ABG Base Excess ABG Hemoglobin ABG Oxyhemoglobin ABG Potassium ABG Chloride ABG Glucose Oxyhemoglobin Carboxyhemoglobin Sodium Potassium Chloride Carbon Dioxide BUN Creatinine Glucose POC Glucose 137 H 132 H Hemoglobin A1c Lactic Acid Calcium Phosphorus Magnesium Transferrin AST ALT Alkaline Phosphatase Total Creatine Kinase CK-MB (CK-2) Serum Total Protein Total Protein Albumin Gyyyd-4-Piqqdmzqm Wiuaq-4-Yhzyjowxz Gamma Globulins PEP Interpretation HDL Cholesterol TSH Arterial Blood Glucose Arterial Blood Ionized Calcium Urine WBC (Auto) Urine Creatinine Urine Total Protein Crossmatch 05/07/21 05/07/21 05/07/21 00:30 04:23 05:30 WBC RBC Hgb Hct MCH RDW Plt Count Seg Neuts % (Manual) Lymphocytes % (Manual) Nucleated RBC % Seg Neutrophils # Man Lymphocytes # (Manual) PT ABG pH POC ABG pCO2 POC ABG pO2 ABG pO2 ABG O2 Saturation ABG Base Excess ABG Hemoglobin ABG Oxyhemoglobin ABG Potassium ABG Chloride ABG Glucose Oxyhemoglobin Carboxyhemoglobin Sodium Potassium 3.4 L Chloride 107.1 H Carbon Dioxide BUN 28 H Creatinine 1.9 H Glucose 165 H POC Glucose 121 H 205 H Hemoglobin A1c Lactic Acid Calcium 8.2 L Phosphorus Magnesium Transferrin AST ALT Alkaline Phosphatase Total Creatine Kinase CK-MB (CK-2) Serum Total Protein Total Protein Albumin Dbxso-9-Fjqgbliay Cyzuy-8-Hscvveqfx Gamma Globulins PEP Interpretation HDL Cholesterol TSH Arterial Blood Glucose Arterial Blood Ionized Calcium Urine WBC (Auto) Urine Creatinine Urine Total Protein Crossmatch 05/07/21 11:37 WBC RBC Hgb Hct MCH RDW Plt Count Seg Neuts % (Manual) Lymphocytes % (Manual) Nucleated RBC % Seg Neutrophils # Man Lymphocytes # (Manual) PT ABG pH POC ABG pCO2 POC ABG pO2 ABG pO2 ABG O2 Saturation ABG Base Excess ABG Hemoglobin ABG Oxyhemoglobin ABG Potassium ABG Chloride ABG Glucose Oxyhemoglobin Carboxyhemoglobin Sodium Potassium Chloride Carbon Dioxide BUN Creatinine Glucose POC Glucose 148 H Hemoglobin A1c Lactic Acid Calcium Phosphorus Magnesium Transferrin AST ALT Alkaline Phosphatase Total Creatine Kinase CK-MB (CK-2) Serum Total Protein Total Protein Albumin Muyit-9-Fsqoxsihb Lvhhw-7-Ahhmqzqnj Gamma Globulins PEP Interpretation HDL Cholesterol TSH Arterial Blood Glucose Arterial Blood Ionized Calcium Urine WBC (Auto) Urine Creatinine Urine Total Protein Crossmatch
--- NOTE | 2021-05-07 12:37 | Progress Note ---
Assessment and Plan 80 y/o female with altered mental state, severe electrolyte imbalance with presumptive acute renal failure and hypothermia. 05/06/21: Await neurology recs now that LINCOLN Could not be done. Based on neurology note, no direct source for stroke on MRA. Patient was seen on this day and can be confirmed by staff. Not sure why my note did not save. 05/05/21: follow up neurology notes. They are discussing with cards the LINCOLN. Continue vent support. Poor prognosis. 05/04/21: follow up MRA when done. LINCOLN pending. HD per renal. Daily PSV trials as tolerated. Poor prognosis given MRI findings and lack of responsiveness off sedation. 05/03/21: Follow up Neurology recs for today. Attempt PSV trials. HD on yesterday. Very very guarded prognosis. 05/02/21: MRI today. Repeat cultures. HD per renal. Once MRI results back will discuss with Neurosurgery to see if anything further should be done. Abx per ID. Overall prognosis is very guarded to poor. 04/29/21: Will reach out to neuro after 24-48 hours post spinal tap pending any change in mentation. If improvement, may need to consider shunt placement. If not, not sure that there is anything they can offer. if they still want MRI, then can obtain. Now spiking temps. Blood cultures and UA. Given time frame in Hospital will place on Vanc and Cefepime. Guarded prognosis. HD per renal. Given anasarca, will ask renal about trying to remove volume. 04/28/21: Will discuss with renal about HD again today. MRI vs LP (large amount). Coags are ok. Will attempt to get at least one of these done today. Patient is still on 80% but sat is 100. Will ask [employer]OR about placing ART line today. Wean FiO2 as tolerated. Guarded prognosis. 04/27/21: HD today per renal. Vascath placed and awaiting CXR for conformation of good placement (done and good). Vent weaning as tolerated for sats >88%. ABG in the AM. Will check Coags in the am and hopeful these are stable. P latelets need to above 50K. Would like to do large volume spinal tap to see if this helps with mentation. Will also obtain MRI once oxygen requirement improves. 04/26/21: WIll electively intubate and then obtain MRI. Pending MRI results, will likely order large volume spinal tap to assess if NPH is a factor or not. Guarded prognosis. Electrolytes are improving. 04/25/21: Continue to follow renal recs. Will reach out to POA either today or tomorrow for further updates. Follow up renal recs. Monitor electrolytes and renal function. Guarded prognosis. 1. Neuro-reached out to neuro surgery, placed consult in regards to CT findings 2. Renal-appreciate help and recs, will follow IV hydration recommendations 3. Blood cultures. Urine was negative 4. Jorge Freidaer for temp Guarded prognosis CCT 31 minutes. Subjective Date of service: 05/06/21 Principal diagnosis: Acute respiratory failure Interval history: Patient was seen on 05/06 however note was not placed. LINCOLN attempted by cards but then aborted. Mental status is unchanged. Objective Vital Signs - 12hr 05/07/21 05/07/21 05/07/21 01:00 01:30 02:00 Temperature Pulse Rate 76 81 76 Pulse Rate [ From Monitor] Respiratory 18 18 16 Rate Blood Pressure 124/61 127/69 135/55 O2 Sat by Pulse 98 98 98 Oximetry 05/07/21 05/07/21 05/07/21 02:30 03:00 03:15 Temperature Pulse Rate 82 81 79 Pulse Rate [ From Monitor] Respiratory 15 15 Rate Blood Pressure 135/70 131/61 131/60 O2 Sat by Pulse 99 98 99 Oximetry 05/07/21 05/07/21 05/07/21 03:30 03:31 04:00 Temperature 99.6 F Pulse Rate 79 73 Pulse Rate [ 77 From Monitor] Respiratory 15 14 Rate Blood Pressure 139/66 134/54 O2 Sat by Pulse 98 98 Oximetry 05/07/21 05/07/21 05/07/21 04:30 05:00 05:30 Temperature Pulse Rate 79 74 78 Pulse Rate [ From Monitor] Respiratory 27 H 14 24 Rate Blood Pressure 135/60 123/55 116/65 O2 Sat by Pulse 98 99 98 Oximetry 05/07/21 05/07/21 05/07/21 06:00 06:30 07:00 Temperature Pulse Rate 74 80 76 Pulse Rate [ From Monitor] Respiratory 14 14 18 Rate Blood Pressure 125/56 128/58 133/57 O2 Sat by Pulse 98 98 98 Oximetry 0105/07/21 05/07/21 07:30 08:00 08:30 Temperature Pulse Rate 83 91 H 77 Pulse Rate [ 89 From Monitor] Respiratory 25 H 13 14 Rate Blood Pressure 127/59 98/45 131/65 O2 Sat by Pulse 98 98 98 Oximetry 05/07/21 05/07/21 05/07/21 09:00 09:30 10:00 Temperature Pulse Rate 75 76 87 Pulse Rate [ From Monitor] Respiratory 14 15 21 Rate Blood Pressure 98/45 120/56 135/69 O2 Sat by Pulse 98 98 99 Oximetry 05/07/21 05/07/21 05/07/21 10:30 11:00 12:00 Temperature 99.6 F Pulse Rate 82 86 Pulse Rate [ From Monitor] Respiratory 14 15 Rate Blood Pressure 127/58 135/64 O2 Sat by Pulse 98 98 Oximetry Constitutional: other (critically ill, somnolent, on vent) Eyes: non-icteric ENT: oropharynx dry Effort: other (tachypneic but not labored) Ascultation: Bilateral: clear Cardiovascular: regular rate and rhythm Gastrointestinal: normoactive bowel sounds Integumentary: normal Extremities: no cyanosis, no edema, pink and warm Neurologic: unable to assess Psychiatric: other (unable to assess) CBC and BMP: 05/06/21 04:27 05/07/21 04:23 ABG, PT/INR, D-dimer: ABG ABG pH 7.487 (7.320-7.450) H 05/02/21 04:34 POC ABG pCO2 35.3 mmHg (32.0-48.0) 05/02/21 04:34 ABG pCO2 31.6 mm Hg 04/21/21 15:47 POC ABG pO2 78.6 mmHg (83-108) L 05/02/21 04:34 ABG pO2 168.1 mm Hg (80.0-90.0) H 04/21/21 15:47 POC ABG HCO3 26.1 05/02/21 04:34 ABG O2 Saturation 96.0 (0-100) 05/02/21 04:34 PT/INR, D-dimer PT 15.3 Sec. (12.2-14.9) H 04/28/21 05:00 INR 1.09 (0.87-1.13) 04/28/21 05:00 Abnormal lab findings: Abnormal Labs 04/20/21 04/20/21 04/20/21 17:10 17:10 17:10 WBC 17.4 H RBC 5.19 H Hgb Hct 46.8 H MCH 27 L RDW 17.2 H Plt Count Seg Neuts % (Manual) 98.0 H Lymphocytes % (Manual) 2.0 L Nucleated RBC % 1.0 H Seg Neutrophils # Man 17.1 H Lymphocytes # (Manual) 0.3 L PT ABG pH POC ABG pCO2 POC ABG pO2 ABG pO2 ABG O2 Saturation ABG Base Excess ABG Hemoglobin ABG Oxyhemoglobin ABG Potassium ABG Chloride ABG Glucose Oxyhemoglobin Carboxyhemoglobin Sodium 173 H* Potassium Chloride 132.9 H Carbon Dioxide 17 L BUN 120 H Creatinine 4.2 H Glucose 762 H* POC Glucose Hemoglobin A1c Lactic Acid Calcium Phosphorus Magnesium 3.80 H Transferrin AST 72 H ALT 63 H Alkaline Phosphatase 148 H Total Creatine Kinase 3697 H CK-MB (CK-2) 36.0 H Serum Total Protein Total Protein Albumin 2.2 L Fvgms-1-Phuyazsiz Qaznf-0-Sfkuxhlll Gamma Globulins PEP Interpretation HDL Cholesterol TSH Arterial Blood Glucose Arterial Blood Ionized Calcium Urine WBC (Auto) Urine Creatinine Urine Total Protein Crossmatch 04/20/21 04/20/21 04/20/21 17:10 17:10 18:55 WBC RBC Hgb Hct MCH RDW Plt Count Seg Neuts % (Manual) Lymphocytes % (Manual) Nucleated RBC % Seg Neutrophils # Man Lymphocytes # (Manual) PT ABG pH POC ABG pCO2 POC ABG pO2 ABG pO2 ABG O2 Saturation ABG Base Excess ABG Hemoglobin ABG Oxyhemoglobin ABG Potassium ABG Chloride ABG Glucose Oxyhemoglobin Carboxyhemoglobin Sodium Potassium Chloride Carbon Dioxide BUN Creatinine Glucose POC Glucose 574 H Hemoglobin A1c Lactic Acid 2.60 H* Calcium Phosphorus Magnesium Transferrin AST ALT Alkaline Phosphatase Total Creatine Kinase CK-MB (CK-2) Serum Total Protein Total Protein Albumin Mwztm-7-Ehmicihhz Pdqdt-7-Izpxbnxqv Gamma Globulins PEP Interpretation HDL Cholesterol TSH 6.040 H Arterial Blood Glucose Arterial Blood Ionized Calcium Urine WBC (Auto) Urine Creatinine Urine Total Protein Crossmatch 04/20/21 04/20/21 04/20/21 22:12 22:58 22:58 WBC RBC Hgb Hct MCH RDW Plt Count Seg Neuts % (Manual) Lymphocytes % (Manual) Nucleated RBC % Seg Neutrophils # Man Lymphocytes # (Manual) PT ABG pH POC ABG pCO2 POC ABG pO2 ABG pO2 ABG O2 Saturation ABG Base Excess ABG Hemoglobin ABG Oxyhemoglobin ABG Potassium ABG Chloride ABG Glucose Oxyhemoglobin Carboxyhemoglobin Sodium 172 H* Potassium 3.2 L Chloride 134.2 H Carbon Dioxide 17 L BUN 112 H Creatinine 3.8 H Glucose 803 H* POC Glucose 554 H Hemoglobin A1c Lactic Acid Calcium 8.3 L Phosphorus Magnesium 3.50 H Transferrin AST ALT Alkaline Phosphatase Total Creatine Kinase CK-MB (CK-2) Serum Total Protein Total Protein Albumin Vqqky-2-Ucvvnjzrh Mnubz-9-Zxncrigda Gamma Globulins PEP Interpretation HDL Cholesterol TSH Arterial Blood Glucose Arterial Blood Ionized Calcium Urine WBC (Auto) Urine Creatinine Urine Total Protein Crossmatch 04/21/21 04/21/21 04/21/21 00:14 00:22 02:01 WBC RBC Hgb Hct MCH RDW Plt Count Seg Neuts % (Manual) Lymphocytes % (Manual) Nucleated RBC % Seg Neutrophils # Man Lymphocytes # (Manual) PT ABG pH POC ABG pCO2 POC ABG pO2 ABG pO2 ABG O2 Saturation ABG Base Excess ABG Hemoglobin ABG Oxyhemoglobin ABG Potassium ABG Chloride ABG Glucose Oxyhemoglobin Carboxyhemoglobin Sodium 176 H* 175 H* Potassium 2.9 L* 3.0 L Chloride 139.9 H 136.2 H Carbon Dioxide 17 L 19 L BUN 113 H 112 H Creatinine 3.9 H 3.6 H Glucose 729 H* 582 H* POC Glucose > 600 H Hemoglobin A1c Lactic Acid Calcium Phosphorus Magnesium Transferrin AST ALT Alkaline Phosphatase Total Creatine Kinase CK-MB (CK-2) Serum Total Protein Total Protein Albumin Msxtr-6-Jblrwtaxw Fxrso-3-Nmbnxnedb Gamma Globulins PEP Interpretation HDL Cholesterol TSH Arterial Blood Glucose Arterial Blood Ionized Calcium Urine WBC (Auto) Urine Creatinine Urine Total Protein Crossmatch 04/21/21 04/21/21 04/21/21 03:11 03:20 03:41 WBC 14.1 H RBC Hgb Hct MCH 27 L RDW 16.8 H Plt Count 114 L Seg Neuts % (Manual) 97.0 H Lymphocytes % (Manual) 3.0 L Nucleated RBC % 1.0 H Seg Neutrophils # Man 13.7 H Lymphocytes # (Manual) 0.4 L PT ABG pH POC ABG pCO2 POC ABG pO2 ABG pO2 52.3 L ABG O2 Saturation 84.5 L ABG Base Excess -2.9 L ABG Hemoglobin ABG Oxyhemoglobin ABG Potassium ABG Chloride ABG Glucose Oxyhemoglobin 82.9 L Carboxyhemoglobin Sodium Potassium Chloride Carbon Dioxide BUN Creatinine Glucose POC Glucose 404 H Hemoglobin A1c Lactic Acid Calcium Phosphorus Magnesium Transferrin AST ALT Alkaline Phosphatase Total Creatine Kinase CK-MB (CK-2) Serum Total Protein Total Protein Albumin Cegub-5-Nzbtefizv Pfpvm-3-Tfosoixev Gamma Globulins PEP Interpretation HDL Cholesterol TSH Arterial Blood Glucose Arterial Blood Ionized Calcium Urine WBC (Auto) Urine Creatinine Urine Total Protein Crossmatch 04/21/21 04/21/21 04/21/21 03:41 04:24 05:45 WBC RBC Hgb Hct MCH RDW Plt Count Seg Neuts % (Manual) Lymphocytes % (Manual) Nucleated RBC % Seg Neutrophils # Man Lymphocytes # (Manual) PT ABG pH POC ABG pCO2 POC ABG pO2 ABG pO2 ABG O2 Saturation ABG Base Excess ABG Hemoglobin ABG Oxyhemoglobin ABG Potassium ABG Chloride ABG Glucose Oxyhemoglobin Carboxyhemoglobin Sodium 179 H* Potassium 2.9 L* Chloride 138.2 H Carbon Dioxide 20 L BUN 111 H Creatinine 3.7 H Glucose 465 H POC Glucose 353 H 280 H Hemoglobin A1c Lactic Acid Calcium Phosphorus Magnesium Transferrin AST 73 H ALT 61 H Alkaline Phosphatase 144 H Total Creatine Kinase CK-MB (CK-2) Serum Total Protein Total Protein Albumin 2.5 L Hbukv-7-Oqnutlzzf Ybdel-3-Eicfvfftq Gamma Globulins PEP Interpretation HDL Cholesterol TSH Arterial Blood Glucose Arterial Blood Ionized Calcium Urine WBC (Auto) Urine Creatinine Urine Total Protein Crossmatch 04/21/21 04/21/21 04/21/21 06:47 08:01 11:11 WBC RBC Hgb Hct MCH RDW Plt Count Seg Neuts % (Manual) Lymphocytes % (Manual) Nucleated RBC % Seg Neutrophils # Man Lymphocytes # (Manual) PT ABG pH POC ABG pCO2 POC ABG pO2 ABG pO2 ABG O2 Saturation ABG Base Excess ABG Hemoglobin ABG Oxyhemoglobin ABG Potassium ABG Chloride ABG Glucose Oxyhemoglobin Carboxyhemoglobin Sodium Potassium Chloride Carbon Dioxide BUN Creatinine Glucose POC Glucose 260 H 68 L Hemoglobin A1c Lactic Acid Calcium Phosphorus Magnesium Transferrin AST ALT Alkaline Phosphatase Total Creatine Kinase CK-MB (CK-2) Serum Total Protein Total Protein Albumin Laouv-6-Qnnspmbav Nwefx-7-Ywesexumc Gamma Globulins PEP Interpretation HDL Cholesterol TSH Arterial Blood Glucose Arterial Blood Ionized Calcium Urine WBC (Auto) Urine Creatinine 44.3 H Urine Total Protein 12 H Crossmatch 04/21/21 04/21/21 04/21/21 12:51 13:41 14:40 WBC RBC Hgb Hct MCH RDW Plt Count Seg Neuts % (Manual) Lymphocytes % (Manual) Nucleated RBC % Seg Neutrophils # Man Lymphocytes # (Manual) PT ABG pH 7.275 L POC ABG pCO2 POC ABG pO2 63.4 L ABG pO2 ABG O2 Saturation ABG Base Excess ABG Hemoglobin 8.4 L ABG Oxyhemoglobin 89.5 L ABG Potassium ABG Chloride 108.0 H ABG Glucose 404 H Oxyhemoglobin Carboxyhemoglobin Sodium Potassium Chloride Carbon Dioxide BUN Creatinine Glucose POC Glucose 146 H 186 H Hemoglobin A1c Lactic Acid Calcium Phosphorus Magnesium Transferrin AST ALT Alkaline Phosphatase Total Creatine Kinase CK-MB (CK-2) Serum Total Protein Total Protein Albumin Qsdjb-8-Fiicopxfo Baulg-2-Itsbhtcfc Gamma Globulins PEP Interpretation HDL Cholesterol TSH Arterial Blood Glucose 404 H Arterial Blood Ionized Calcium Urine WBC (Auto) Urine Creatinine Urine Total Protein Crossmatch 04/21/21 04/21/21 04/21/21 15:47 16:25 17:57 WBC RBC Hgb Hct MCH RDW Plt Count Seg Neuts % (Manual) Lymphocytes % (Manual) Nucleated RBC % Seg Neutrophils # Man Lymphocytes # (Manual) PT ABG pH 7.486 H POC ABG pCO2 POC ABG pO2 ABG pO2 168.1 H ABG O2 Saturation 99.1 H ABG Base Excess ABG Hemoglobin 8.9 L ABG Oxyhemoglobin ABG Potassium ABG Chloride ABG Glucose Oxyhemoglobin Carboxyhemoglobin Sodium Potassium Chloride Carbon Dioxide BUN Creatinine Glucose POC Glucose 172 H 143 H Hemoglobin A1c Lactic Acid Calcium Phosphorus Magnesium Transferrin AST ALT Alkaline Phosphatase Total Creatine Kinase CK-MB (CK-2) Serum Total Protein Total Protein Albumin Tykxg-3-Wicpflvpk Vadih-5-Rvwjxgghl Gamma Globulins PEP Interpretation HDL Cholesterol TSH Arterial Blood Glucose Arterial Blood Ionized Calcium Urine WBC (Auto) Urine Creatinine Urine Total Protein Crossmatch 04/21/21 04/21/21 04/21/21 18:49 19:10 20:26 WBC RBC Hgb Hct MCH RDW Plt Count Seg Neuts % (Manual) Lymphocytes % (Manual) Nucleated RBC % Seg Neutrophils # Man Lymphocytes # (Manual) PT ABG pH POC ABG pCO2 POC ABG pO2 ABG pO2 ABG O2 Saturation ABG Base Excess ABG Hemoglobin ABG Oxyhemoglobin ABG Potassium ABG Chloride ABG Glucose Oxyhemoglobin Carboxyhemoglobin Sodium 174 H* Potassium 7.2 H* D Chloride 138.2 H Carbon Dioxide 21 L BUN 99 H Creatinine 4.0 H Glucose 157 H POC Glucose 126 H 190 H Hemoglobin A1c Lactic Acid Calcium Phosphorus Magnesium Transferrin AST 134 H ALT 71 H Alkaline Phosphatase 135 H Total Creatine Kinase 3504 H CK-MB (CK-2) Serum Total Protein Total Protein Albumin 2.2 L Fubfd-4-Pqshdxsvm Rkvwo-6-Oojftmuio Gamma Globulins PEP Interpretation HDL Cholesterol TSH Arterial Blood Glucose Arterial Blood Ionized Calcium Urine WBC (Auto) Urine Creatinine Urine Total Protein Crossmatch 04/21/21 04/21/21 04/21/21 20:53 21:52 22:55 WBC RBC Hgb Hct MCH RDW Plt Count Seg Neuts % (Manual) Lymphocytes % (Manual) Nucleated RBC % Seg Neutrophils # Man Lymphocytes # (Manual) PT ABG pH POC ABG pCO2 POC ABG pO2 ABG pO2 ABG O2 Saturation ABG Base Excess ABG Hemoglobin ABG Oxyhemoglobin ABG Potassium ABG Chloride ABG Glucose Oxyhemoglobin Carboxyhemoglobin Sodium Potassium Chloride Carbon Dioxide BUN Creatinine Glucose POC Glucose 116 H 135 H 158 H Hemoglobin A1c Lactic Acid Calcium Phosphorus Magnesium Transferrin AST ALT Alkaline Phosphatase Total Creatine Kinase CK-MB (CK-2) Serum Total Protein Total Protein Albumin Qhpli-8-Ivvbigxcq Ohyal-1-Saxgwbuhx Gamma Globulins PEP Interpretation HDL Cholesterol TSH Arterial Blood Glucose Arterial Blood Ionized Calcium Urine WBC (Auto) Urine Creatinine Urine Total Protein Crossmatch 04/21/21 04/22/21 04/22/21 23:00 00:01 00:39 WBC RBC Hgb Hct MCH RDW Plt Count Seg Neuts % (Manual) Lymphocytes % (Manual) Nucleated RBC % Seg Neutrophils # Man Lymphocytes # (Manual) PT ABG pH POC ABG pCO2 POC ABG pO2 ABG pO2 ABG O2 Saturation ABG Base Excess ABG Hemoglobin ABG Oxyhemoglobin ABG Potassium ABG Chloride ABG Glucose Oxyhemoglobin Carboxyhemoglobin Sodium 176 H* 171 H* Potassium Chloride 140.0 H Carbon Dioxide 20 L BUN 98 H Creatinine 3.9 H Glucose 206 H POC Glucose 182 H Hemoglobin A1c Lactic Acid Calcium Phosphorus Magnesium Transferrin AST ALT Alkaline Phosphatase Total Creatine Kinase 3240 H CK-MB (CK-2) Serum Total Protein Total Protein Albumin Zrksi-7-Fdsismabj Oslom-8-Adgibbhnj Gamma Globulins PEP Interpretation HDL Cholesterol TSH Arterial Blood Glucose Arterial Blood Ionized Calcium Urine WBC (Auto) Urine Creatinine Urine Total Protein Crossmatch 04/22/21 04/22/21 04/22/21 00:58 01:04 04:52 WBC 11.2 H RBC Hgb Hct 44.3 H MCH 27 L RDW 17.1 H Plt Count 86 L Seg Neuts % (Manual) 86.0 H Lymphocytes % (Manual) 13.0 L Nucleated RBC % Seg Neutrophils # Man 9.6 H Lymphocytes # (Manual) PT ABG pH POC ABG pCO2 POC ABG pO2 ABG pO2 ABG O2 Saturation ABG Base Excess ABG Hemoglobin ABG Oxyhemoglobin ABG Potassium ABG Chloride ABG Glucose Oxyhemoglobin Carboxyhemoglobin Sodium Potassium Chloride Carbon Dioxide BUN Creatinine Glucose POC Glucose 176 H 143 H Hemoglobin A1c Lactic Acid Calcium Phosphorus Magnesium Transferrin AST ALT Alkaline Phosphatase Total Creatine Kinase CK-MB (CK-2) Serum Total Protein Total Protein Albumin Oqhts-3-Yvmzggghj Ilwmr-0-Clpkfjrah Gamma Globulins PEP Interpretation HDL Cholesterol TSH Arterial Blood Glucose Arterial Blood Ionized Calcium Urine WBC (Auto) Urine Creatinine Urine Total Protein Crossmatch 04/22/21 04/22/21 04/22/21 06:07 06:09 07:18 WBC RBC Hgb Hct MCH RDW Plt Count Seg Neuts % (Manual) Lymphocytes % (Manual) Nucleated RBC % Seg Neutrophils # Man Lymphocytes # (Manual) PT ABG pH POC ABG pCO2 POC ABG pO2 ABG pO2 ABG O2 Saturation ABG Base Excess ABG Hemoglobin ABG Oxyhemoglobin ABG Potassium ABG Chloride ABG Glucose Oxyhemoglobin Carboxyhemoglobin Sodium Potassium Chloride Carbon Dioxide BUN Creatinine Glucose POC Glucose 206 H 163 H 158 H Hemoglobin A1c Lactic Acid Calcium Phosphorus Magnesium Transferrin AST ALT Alkaline Phosphatase Total Creatine Kinase CK-MB (CK-2) Serum Total Protein Total Protein Albumin Ddfxd-0-Roiaiyouy Qngtl-6-Ziwddihtw Gamma Globulins PEP Interpretation HDL Cholesterol TSH Arterial Blood Glucose Arterial Blood Ionized Calcium Urine WBC (Auto) Urine Creatinine Urine Total Protein Crossmatch 04/22/21 04/22/21 04/22/21 08:59 08:59 08:59 WBC RBC Hgb Hct MCH RDW Plt Count Seg Neuts % (Manual) Lymphocytes % (Manual) Nucleated RBC % Seg Neutrophils # Man Lymphocytes # (Manual) PT ABG pH POC ABG pCO2 POC ABG pO2 ABG pO2 ABG O2 Saturation ABG Base Excess ABG Hemoglobin ABG Oxyhemoglobin ABG Potassium ABG Chloride ABG Glucose Oxyhemoglobin Carboxyhemoglobin Sodium 169 H* Potassium 3.5 L Chloride 134.5 H Carbon Dioxide 20 L BUN 95 H Creatinine 3.6 H Glucose 151 H POC Glucose Hemoglobin A1c Lactic Acid Calcium Phosphorus Magnesium Transferrin AST 121 H ALT 75 H Alkaline Phosphatase 137 H Total Creatine Kinase 3105 H CK-MB (CK-2) Serum Total Protein 5.5 L Total Protein 6.0 L Albumin 2.8 L 2.1 L Otdwj-1-Jqnttukbu 0.6 H Zdril-1-Shwgqxxvq 1.0 H Gamma Globulins 0.6 L PEP Interpretation see below H HDL Cholesterol TSH Arterial Blood Glucose Arterial Blood Ionized Calcium Urine WBC (Auto) Urine Creatinine Urine Total Protein Crossmatch 04/22/21 04/22/21 04/22/21 09:44 10:24 12:20 WBC RBC Hgb Hct MCH RDW Plt Count Seg Neuts % (Manual) Lymphocytes % (Manual) Nucleated RBC % Seg Neutrophils # Man Lymphocytes # (Manual) PT ABG pH POC ABG pCO2 POC ABG pO2 ABG pO2 ABG O2 Saturation ABG Base Excess ABG Hemoglobin ABG Oxyhemoglobin ABG Potassium ABG Chloride ABG Glucose Oxyhemoglobin Carboxyhemoglobin Sodium Potassium Chloride Carbon Dioxide BUN Creatinine Glucose POC Glucose 107 H 131 H Hemoglobin A1c Lactic Acid Calcium Phosphorus Magnesium 2.80 H Transferrin AST ALT Alkaline Phosphatase Total Creatine Kinase CK-MB (CK-2) Serum Total Protein Total Protein Albumin Jtvti-9-Zxiamxxgr Kwqrw-7-Xjbjelgvv Gamma Globulins PEP Interpretation HDL Cholesterol TSH Arterial Blood Glucose Arterial Blood Ionized Calcium Urine WBC (Auto) Urine Creatinine Urine Total Protein Crossmatch 04/22/21 04/22/21 04/22/21 13:19 14:16 15:22 WBC RBC Hgb Hct MCH RDW Plt Count Seg Neuts % (Manual) Lymphocytes % (Manual) Nucleated RBC % Seg Neutrophils # Man Lymphocytes # (Manual) PT ABG pH POC ABG pCO2 POC ABG pO2 ABG pO2 ABG O2 Saturation ABG Base Excess ABG Hemoglobin ABG Oxyhemoglobin ABG Potassium ABG Chloride ABG Glucose Oxyhemoglobin Carboxyhemoglobin Sodium Potassium Chloride Carbon Dioxide BUN Creatinine Glucose POC Glucose 147 H 154 H 136 H Hemoglobin A1c Lactic Acid Calcium Phosphorus Magnesium Transferrin AST ALT Alkaline Phosphatase Total Creatine Kinase CK-MB (CK-2) Serum Total Protein Total Protein Albumin Tatei-6-Tlhgxxplu Kkbcm-1-Ysynyhept Gamma Globulins PEP Interpretation HDL Cholesterol TSH Arterial Blood Glucose Arterial Blood Ionized Calcium Urine WBC (Auto) Urine Creatinine Urine Total Protein Crossmatch 04/22/21 04/22/21 04/22/21 15:55 15:55 16:22 WBC RBC Hgb Hct MCH RDW Plt Count Seg Neuts % (Manual) Lymphocytes % (Manual) Nucleated RBC % Seg Neutrophils # Man Lymphocytes # (Manual) PT ABG pH POC ABG pCO2 POC ABG pO2 ABG pO2 ABG O2 Saturation ABG Base Excess ABG Hemoglobin ABG Oxyhemoglobin ABG Potassium ABG Chloride ABG Glucose Oxyhemoglobin Carboxyhemoglobin Sodium 169 H* Potassium Chloride 133.5 H Carbon Dioxide 19 L BUN 94 H Creatinine 3.8 H Glucose 150 H POC Glucose 140 H Hemoglobin A1c 17.1 H Lactic Acid Calcium Phosphorus Magnesium Transferrin AST ALT Alkaline Phosphatase Total Creatine Kinase CK-MB (CK-2) Serum Total Protein Total Protein Albumin Dhbur-1-Fbymhsasb Qmfem-6-Rioquxigq Gamma Globulins PEP Interpretation HDL Cholesterol TSH Arterial Blood Glucose Arterial Blood Ionized Calcium Urine WBC (Auto) Urine Creatinine Urine Total Protein Crossmatch 04/22/21 04/22/21 04/22/21 18:11 18:26 23:19 WBC RBC Hgb Hct MCH RDW Plt Count Seg Neuts % (Manual) Lymphocytes % (Manual) Nucleated RBC % Seg Neutrophils # Man Lymphocytes # (Manual) PT ABG pH POC ABG pCO2 POC ABG pO2 ABG pO2 ABG O2 Saturation ABG Base Excess ABG Hemoglobin ABG Oxyhemoglobin ABG Potassium ABG Chloride ABG Glucose Oxyhemoglobin Carboxyhemoglobin Sodium Potassium Chloride Carbon Dioxide BUN Creatinine Glucose POC Glucose 146 H 188 H Hemoglobin A1c Lactic Acid Calcium Phosphorus Magnesium Transferrin AST ALT Alkaline Phosphatase Total Creatine Kinase 2497 H CK-MB (CK-2) Serum Total Protein Total Protein Albumin Iarxs-2-Zjmocifxl Wnftw-9-Nzrbbamhm Gamma Globulins PEP Interpretation HDL Cholesterol TSH Arterial Blood Glucose Arterial Blood Ionized Calcium Urine WBC (Auto) Urine Creatinine Urine Total Protein Crossmatch 04/23/21 04/23/21 04/23/21 00:27 05:23 07:50 WBC RBC Hgb Hct MCH RDW Plt Count Seg Neuts % (Manual) Lymphocytes % (Manual) Nucleated RBC % Seg Neutrophils # Man Lymphocytes # (Manual) PT ABG pH POC ABG pCO2 POC ABG pO2 ABG pO2 ABG O2 Saturation ABG Base Excess ABG Hemoglobin ABG Oxyhemoglobin ABG Potassium ABG Chloride ABG Glucose Oxyhemoglobin Carboxyhemoglobin Sodium 162 H* Potassium Chloride Carbon Dioxide BUN Creatinine Glucose POC Glucose 212 H 239 H Hemoglobin A1c Lactic Acid Calcium Phosphorus Magnesium Transferrin AST ALT Alkaline Phosphatase Total Creatine Kinase CK-MB (CK-2) Serum Total Protein Total Protein Albumin Pqvkj-7-Zjbjzghyd Tvbnt-0-Ngkqaimrk Gamma Globulins PEP Interpretation HDL Cholesterol TSH Arterial Blood Glucose Arterial Blood Ionized Calcium Urine WBC (Auto) Urine Creatinine Urine Total Protein Crossmatch 04/23/21 04/23/21 04/23/21 08:13 08:13 08:13 WBC 11.9 H RBC Hgb Hct MCH 26 L RDW 16.5 H Plt Count 72 L Seg Neuts % (Manual) 80.0 H Lymphocytes % (Manual) 5.0 L Nucleated RBC % Seg Neutrophils # Man 9.5 H Lymphocytes # (Manual) 0.6 L PT ABG pH POC ABG pCO2 POC ABG pO2 ABG pO2 ABG O2 Saturation ABG Base Excess ABG Hemoglobin ABG Oxyhemoglobin ABG Potassium ABG Chloride ABG Glucose Oxyhemoglobin Carboxyhemoglobin Sodium 164 H* Potassium Chloride 128.0 H Carbon Dioxide 21 L BUN 93 H Creatinine 3.8 H Glucose 293 H POC Glucose Hemoglobin A1c Lactic Acid Calcium Phosphorus Magnesium Transferrin AST 99 H ALT 70 H Alkaline Phosphatase 147 H Total Creatine Kinase 1803 H CK-MB (CK-2) Serum Total Protein Total Protein 6.1 L Albumin 2.0 L Ckpck-9-Fyvpoebly Rebty-2-Rnzcglrdp Gamma Globulins PEP Interpretation HDL Cholesterol TSH Arterial Blood Glucose Arterial Blood Ionized Calcium Urine WBC (Auto) Urine Creatinine Urine Total Protein Crossmatch 04/23/21 04/23/21 04/23/21 12:06 17:35 18:17 WBC RBC Hgb Hct MCH RDW Plt Count Seg Neuts % (Manual) Lymphocytes % (Manual) Nucleated RBC % Seg Neutrophils # Man Lymphocytes # (Manual) PT ABG pH POC ABG pCO2 POC ABG pO2 ABG pO2 ABG O2 Saturation ABG Base Excess ABG Hemoglobin ABG Oxyhemoglobin ABG Potassium ABG Chloride ABG Glucose Oxyhemoglobin Carboxyhemoglobin Sodium 160 H Potassium Chloride Carbon Dioxide BUN Creatinine Glucose POC Glucose 311 H 370 H Hemoglobin A1c Lactic Acid Calcium Phosphorus Magnesium Transferrin AST ALT Alkaline Phosphatase Total Creatine Kinase CK-MB (CK-2) Serum Total Protein Total Protein Albumin Stwjx-0-Fasjcygkq Qeigk-0-Vrwlorlcw Gamma Globulins PEP Interpretation HDL Cholesterol TSH Arterial Blood Glucose Arterial Blood Ionized Calcium Urine WBC (Auto) Urine Creatinine Urine Total Protein Crossmatch 04/24/21 04/24/21 04/24/21 02:13 06:00 06:00 WBC RBC Hgb Hct MCH 27 L RDW 17.0 H Plt Count 58 L Seg Neuts % (Manual) Lymphocytes % (Manual) 2.0 L Nucleated RBC % Seg Neutrophils # Man 8.9 H Lymphocytes # (Manual) 0.2 L PT ABG pH POC ABG pCO2 POC ABG pO2 ABG pO2 ABG O2 Saturation ABG Base Excess ABG Hemoglobin ABG Oxyhemoglobin ABG Potassium ABG Chloride ABG Glucose Oxyhemoglobin Carboxyhemoglobin Sodium 160 H Potassium Chloride Carbon Dioxide BUN Creatinine Glucose POC Glucose Hemoglobin A1c Lactic Acid Calcium Phosphorus Magnesium 2.90 H Transferrin AST ALT Alkaline Phosphatase Total Creatine Kinase CK-MB (CK-2) Serum Total Protein Total Protein Albumin Fyvpi-0-Zwaiurivb Nimnk-3-Fyspouqtp Gamma Globulins PEP Interpretation HDL Cholesterol TSH Arterial Blood Glucose Arterial Blood Ionized Calcium Urine WBC (Auto) Urine Creatinine Urine Total Protein Crossmatch 04/24/21 04/24/21 04/24/21 07:46 08:15 11:34 WBC RBC Hgb Hct MCH RDW Plt Count Seg Neuts % (Manual) Lymphocytes % (Manual) Nucleated RBC % Seg Neutrophils # Man Lymphocytes # (Manual) PT ABG pH POC ABG pCO2 POC ABG pO2 ABG pO2 ABG O2 Saturation ABG Base Excess ABG Hemoglobin ABG Oxyhemoglobin ABG Potassium ABG Chloride ABG Glucose Oxyhemoglobin Carboxyhemoglobin Sodium 159 H Potassium Chloride 125.6 H Carbon Dioxide 19 L BUN 94 H Creatinine 3.7 H Glucose 514 H* POC Glucose 395 H 422 H Hemoglobin A1c Lactic Acid Calcium Phosphorus Magnesium Transferrin AST ALT 61 H Alkaline Phosphatase 155 H Total Creatine Kinase CK-MB (CK-2) Serum Total Protein Total Protein 6.1 L Albumin 1.5 L Oqlpl-5-Pcvsjanes Qxcfm-0-Hzbzwszis Gamma Globulins PEP Interpretation HDL Cholesterol TSH Arterial Blood Glucose Arterial Blood Ionized Calcium Urine WBC (Auto) Urine Creatinine Urine Total Protein Crossmatch 04/24/21 04/24/21 04/24/21 13:11 14:01 15:03 WBC RBC Hgb Hct MCH RDW Plt Count Seg Neuts % (Manual) Lymphocytes % (Manual) Nucleated RBC % Seg Neutrophils # Man Lymphocytes # (Manual) PT ABG pH POC ABG pCO2 POC ABG pO2 ABG pO2 ABG O2 Saturation ABG Base Excess ABG Hemoglobin ABG Oxyhemoglobin ABG Potassium ABG Chloride ABG Glucose Oxyhemoglobin Carboxyhemoglobin Sodium Potassium Chloride Carbon Dioxide BUN Creatinine Glucose POC Glucose 384 H 423 H 418 H Hemoglobin A1c Lactic Acid Calcium Phosphorus Magnesium Transferrin AST ALT Alkaline Phosphatase Total Creatine Kinase CK-MB (CK-2) Serum Total Protein Total Protein Albumin Piuhb-2-Eluhkfyya Oliwl-1-Naxdkbtns Gamma Globulins PEP Interpretation HDL Cholesterol TSH Arterial Blood Glucose Arterial Blood Ionized Calcium Urine WBC (Auto) Urine Creatinine Urine Total Protein Crossmatch 04/24/21 04/24/21 04/24/21 17:29 18:28 19:41 WBC RBC Hgb Hct MCH RDW Plt Count Seg Neuts % (Manual) Lymphocytes % (Manual) Nucleated RBC % Seg Neutrophils # Man Lymphocytes # (Manual) PT ABG pH POC ABG pCO2 POC ABG pO2 ABG pO2 ABG O2 Saturation ABG Base Excess ABG Hemoglobin ABG Oxyhemoglobin ABG Potassium ABG Chloride ABG Glucose Oxyhemoglobin Carboxyhemoglobin Sodium Potassium Chloride Carbon Dioxide BUN Creatinine Glucose POC Glucose 335 H 321 H Hemoglobin A1c Lactic Acid Calcium Phosphorus Magnesium Transferrin 112 L AST ALT Alkaline Phosphatase Total Creatine Kinase CK-MB (CK-2) Serum Total Protein Total Protein Albumin Yxevl-9-Ugwxyrxhx Xjsma-5-Nhkxpkydw Gamma Globulins PEP Interpretation HDL Cholesterol TSH Arterial Blood Glucose Arterial Blood Ionized Calcium Urine WBC (Auto) Urine Creatinine Urine Total Protein Crossmatch 04/24/21 04/25/21 04/25/21 22:33 01:28 02:28 WBC RBC Hgb Hct MCH RDW Plt Count Seg Neuts % (Manual) Lymphocytes % (Manual) Nucleated RBC % Seg Neutrophils # Man Lymphocytes # (Manual) PT ABG pH POC ABG pCO2 POC ABG pO2 ABG pO2 ABG O2 Saturation ABG Base Excess ABG Hemoglobin ABG Oxyhemoglobin ABG Potassium ABG Chloride ABG Glucose Oxyhemoglobin Carboxyhemoglobin Sodium Potassium Chloride Carbon Dioxide BUN Creatinine Glucose POC Glucose 349 H 283 H 247 H Hemoglobin A1c Lactic Acid Calcium Phosphorus Magnesium Transferrin AST ALT Alkaline Phosphatase Total Creatine Kinase CK-MB (CK-2) Serum Total Protein Total Protein Albumin Uimwv-7-Nksqcdteh Abcir-3-Ctggfgheh Gamma Globulins PEP Interpretation HDL Cholesterol TSH Arterial Blood Glucose Arterial Blood Ionized Calcium Urine WBC (Auto) Urine Creatinine Urine Total Protein Crossmatch 04/25/21 04/25/21 04/25/21 03:25 04:22 05:40 WBC RBC Hgb Hct MCH RDW Plt Count Seg Neuts % (Manual) Lymphocytes % (Manual) Nucleated RBC % Seg Neutrophils # Delbert Lymphocytes # (Manual) PT ABG pH POC ABG pCO2 POC ABG pO2 ABG pO2 ABG O2 Saturation ABG Base Excess ABG Hemoglobin ABG Oxyhemoglobin ABG Potassium ABG Chloride ABG Glucose Oxyhemoglobin Carboxyhemoglobin Sodium Potassium Chloride Carbon Dioxide BUN Creatinine Glucose POC Glucose 196 H 207 H 204 H Hemoglobin A1c Lactic Acid Calcium Phosphorus Magnesium Transferrin AST ALT Alkaline Phosphatase Total Creatine Kinase CK-MB (CK-2) Serum Total Protein Total Protein Albumin Hkgho-1-Kexhjhzre Txpge-8-Pckhzahwl Gamma Globulins PEP Interpretation HDL Cholesterol TSH Arterial Blood Glucose Arterial Blood Ionized Calcium Urine WBC (Auto) Urine Creatinine Urine Total Protein Crossmatch 04/25/21 04/25/21 04/25/21 05:45 06:43 07:37 WBC RBC Hgb Hct MCH 27 L RDW 17.0 H Plt Count 64 L Seg Neuts % (Manual) 84.0 H Lymphocytes % (Manual) 6.0 L Nucleated RBC % 1.0 H Seg Neutrophils # Delbert Lymphocytes # (Manual) 0.4 L PT ABG pH POC ABG pCO2 POC ABG pO2 ABG pO2 ABG O2 Saturation ABG Base Excess ABG Hemoglobin ABG Oxyhemoglobin ABG Potassium ABG Chloride ABG Glucose Oxyhemoglobin Carboxyhemoglobin Sodium Potassium Chloride Carbon Dioxide BUN Creatinine Glucose POC Glucose 238 H 201 H Hemoglobin A1c Lactic Acid Calcium Phosphorus Magnesium Transferrin AST ALT Alkaline Phosphatase Total Creatine Kinase CK-MB (CK-2) Serum Total Protein Total Protein Albumin Iwuzm-1-Vfhfvwcmr Yvbdu-2-Visfukrvr Gamma Globulins PEP Interpretation HDL Cholesterol TSH Arterial Blood Glucose Arterial Blood Ionized Calcium Urine WBC (Auto) Urine Creatinine Urine Total Protein Crossmatch 04/25/21 04/25/21 04/25/21 08:11 08:11 08:41 WBC RBC Hgb Hct MCH RDW Plt Count Seg Neuts % (Manual) Lymphocytes % (Manual) Nucleated RBC % Seg Neutrophils # Man Lymphocytes # (Manual) PT ABG pH POC ABG pCO2 POC ABG pO2 ABG pO2 ABG O2 Saturation ABG Base Excess ABG Hemoglobin ABG Oxyhemoglobin ABG Potassium ABG Chloride ABG Glucose Oxyhemoglobin Carboxyhemoglobin Sodium 148 H D Potassium Chloride 115.7 H Carbon Dioxide 21 L BUN 83 H Creatinine 3.6 H Glucose 247 H POC Glucose 220 H Hemoglobin A1c Lactic Acid Calcium Phosphorus Magnesium 2.50 H Transferrin AST 63 H ALT 62 H Alkaline Phosphatase 143 H Total Creatine Kinase CK-MB (CK-2) Serum Total Protein Total Protein 5.4 L Albumin 1.4 L Herub-2-Rwjxiphcp Smqab-7-Ftdvxgejl Gamma Globulins PEP Interpretation HDL Cholesterol TSH Arterial Blood Glucose Arterial Blood Ionized Calcium Urine WBC (Auto) Urine Creatinine Urine Total Protein Crossmatch 04/25/21 04/25/21 04/25/21 09:22 10:31 11:44 WBC RBC Hgb Hct MCH RDW Plt Count Seg Neuts % (Manual) Lymphocytes % (Manual) Nucleated RBC % Seg Neutrophils # Man Lymphocytes # (Manual) PT ABG pH POC ABG pCO2 POC ABG pO2 ABG pO2 ABG O2 Saturation ABG Base Excess ABG Hemoglobin ABG Oxyhemoglobin ABG Potassium ABG Chloride ABG Glucose Oxyhemoglobin Carboxyhemoglobin Sodium Potassium Chloride Carbon Dioxide BUN Creatinine Glucose POC Glucose 228 H 215 H 191 H Hemoglobin A1c Lactic Acid Calcium Phosphorus Magnesium Transferrin AST ALT Alkaline Phosphatase Total Creatine Kinase CK-MB (CK-2) Serum Total Protein Total Protein Albumin Wjmta-3-Tyfdtdcek Oecpt-1-Dvkadnbhy Gamma Globulins PEP Interpretation HDL Cholesterol TSH Arterial Blood Glucose Arterial Blood Ionized Calcium Urine WBC (Auto) Urine Creatinine Urine Total Protein Crossmatch 04/25/21 04/25/21 04/25/21 12:23 13:48 14:11 WBC RBC Hgb Hct MCH RDW Plt Count Seg Neuts % (Manual) Lymphocytes % (Manual) Nucleated RBC % Seg Neutrophils # Man Lymphocytes # (Manual) PT ABG pH POC ABG pCO2 POC ABG pO2 ABG pO2 ABG O2 Saturation ABG Base Excess ABG Hemoglobin ABG Oxyhemoglobin ABG Potassium ABG Chloride ABG Glucose Oxyhemoglobin Carboxyhemoglobin Sodium Potassium Chloride Carbon Dioxide BUN Creatinine Glucose POC Glucose 229 H 177 H 161 H Hemoglobin A1c Lactic Acid Calcium Phosphorus Magnesium Transferrin AST ALT Alkaline Phosphatase Total Creatine Kinase CK-MB (CK-2) Serum Total Protein Total Protein Albumin Jsvgu-8-Hvaidcfpf Khxnn-0-Kyaknkgvr Gamma Globulins PEP Interpretation HDL Cholesterol TSH Arterial Blood Glucose Arterial Blood Ionized Calcium Urine WBC (Auto) Urine Creatinine Urine Total Protein Crossmatch 04/25/21 04/25/21 04/26/21 18:01 21:31 01:19 WBC RBC Hgb Hct MCH RDW Plt Count Seg Neuts % (Manual) Lymphocytes % (Manual) Nucleated RBC % Seg Neutrophils # Delbert Lymphocytes # (Manual) PT ABG pH POC ABG pCO2 POC ABG pO2 ABG pO2 ABG O2 Saturation ABG Base Excess ABG Hemoglobin ABG Oxyhemoglobin ABG Potassium ABG Chloride ABG Glucose Oxyhemoglobin Carboxyhemoglobin Sodium Potassium Chloride Carbon Dioxide BUN Creatinine Glucose POC Glucose 264 H 371 H 356 H Hemoglobin A1c Lactic Acid Calcium Phosphorus Magnesium Transferrin AST ALT Alkaline Phosphatase Total Creatine Kinase CK-MB (CK-2) Serum Total Protein Total Protein Albumin Utyrm-7-Ycgiksdsz Dvcfn-4-Dsesawryg Gamma Globulins PEP Interpretation HDL Cholesterol TSH Arterial Blood Glucose Arterial Blood Ionized Calcium Urine WBC (Auto) Urine Creatinine Urine Total Protein Crossmatch 04/26/21 04/26/21 04/26/21 06:31 09:13 09:33 WBC RBC Hgb Hct MCH 27 L RDW 16.9 H Plt Count 58 L Seg Neuts % (Manual) 77.0 H Lymphocytes % (Manual) 4.0 L Nucleated RBC % 2.0 H Seg Neutrophils # Delbert Lymphocytes # (Manual) 0.3 L PT ABG pH POC ABG pCO2 POC ABG pO2 ABG pO2 ABG O2 Saturation ABG Base Excess ABG Hemoglobin ABG Oxyhemoglobin ABG Potassium ABG Chloride ABG Glucose Oxyhemoglobin Carboxyhemoglobin Sodium Potassium Chloride Carbon Dioxide BUN Creatinine Glucose POC Glucose 428 H 454 H Hemoglobin A1c Lactic Acid Calcium Phosphorus Magnesium Transferrin AST ALT Alkaline Phosphatase Total Creatine Kinase CK-MB (CK-2) Serum Total Protein Total Protein Albumin Dcehq-8-Nixstgvzl Xiwdm-7-Oagsoxuls Gamma Globulins PEP Interpretation HDL Cholesterol TSH Arterial Blood Glucose Arterial Blood Ionized Calcium Urine WBC (Auto) Urine Creatinine Urine Total Protein Crossmatch 04/26/21 04/26/21 04/26/21 09:33 09:33 11:00 WBC RBC Hgb Hct MCH RDW Plt Count Seg Neuts % (Manual) Lymphocytes % (Manual) Nucleated RBC % Seg Neutrophils # Man Lymphocytes # (Manual) PT ABG pH 7.281 L POC ABG pCO2 POC ABG pO2 66.4 L ABG pO2 ABG O2 Saturation ABG Base Excess ABG Hemoglobin 10.9 L ABG Oxyhemoglobin 91 L ABG Potassium ABG Chloride ABG Glucose 521 H Oxyhemoglobin Carboxyhemoglobin Sodium Potassium Chloride Carbon Dioxide 19 L BUN 98 H Creatinine 3.8 H Glucose 530 H* POC Glucose Hemoglobin A1c Lactic Acid Calcium 8.1 L Phosphorus 5.60 H D Magnesium Transferrin AST 60 H ALT 72 H Alkaline Phosphatase 168 H Total Creatine Kinase CK-MB (CK-2) Serum Total Protein Total Protein 4.6 L Albumin 1.7 L Pgxho-7-Qllqdjdrh Jeqtb-0-Txiykxdnt Gamma Globulins PEP Interpretation HDL Cholesterol TSH Arterial Blood Glucose 521 H Arterial Blood Ionized Calcium Urine WBC (Auto) Urine Creatinine Urine Total Protein Crossmatch 04/26/21 04/26/21 04/26/21 12:36 15:39 16:18 WBC RBC Hgb Hct MCH RDW Plt Count Seg Neuts % (Manual) Lymphocytes % (Manual) Nucleated RBC % Seg Neutrophils # Man Lymphocytes # (Manual) PT ABG pH 7.275 L POC ABG pCO2 POC ABG pO2 63.4 L ABG pO2 ABG O2 Saturation ABG Base Excess ABG Hemoglobin 8.4 L ABG Oxyhemoglobin 89.5 L ABG Potassium ABG Chloride 108.0 H ABG Glucose 404 H Oxyhemoglobin Carboxyhemoglobin Sodium Potassium Chloride Carbon Dioxide BUN Creatinine Glucose POC Glucose 414 H 324 H Hemoglobin A1c Lactic Acid Calcium Phosphorus Magnesium Transferrin AST ALT Alkaline Phosphatase Total Creatine Kinase CK-MB (CK-2) Serum Total Protein Total Protein Albumin Ckppv-2-Cruavpnfm Rfonf-3-Fomxugagg Gamma Globulins PEP Interpretation HDL Cholesterol TSH Arterial Blood Glucose 404 H Arterial Blood Ionized Calcium Urine WBC (Auto) Urine Creatinine Urine Total Protein Crossmatch 04/26/21 04/27/21 04/27/21 21:14 00:07 05:47 WBC RBC Hgb Hct MCH RDW Plt Count Seg Neuts % (Manual) Lymphocytes % (Manual) Nucleated RBC % Seg Neutrophils # Man Lymphocytes # (Manual) PT ABG pH POC ABG pCO2 POC ABG pO2 ABG pO2 ABG O2 Saturation ABG Base Excess ABG Hemoglobin ABG Oxyhemoglobin ABG Potassium ABG Chloride ABG Glucose Oxyhemoglobin Carboxyhemoglobin Sodium Potassium Chloride Carbon Dioxide BUN Creatinine Glucose POC Glucose 242 H 282 H 214 H Hemoglobin A1c Lactic Acid Calcium Phosphorus Magnesium Transferrin AST ALT Alkaline Phosphatase Total Creatine Kinase CK-MB (CK-2) Serum Total Protein Total Protein Albumin Lhmdb-0-Iypxthpmq Dvdme-3-Kaktckkbq Gamma Globulins PEP Interpretation HDL Cholesterol TSH Arterial Blood Glucose Arterial Blood Ionized Calcium Urine WBC (Auto) Urine Creatinine Urine Total Protein Crossmatch 04/27/21 04/27/21 04/27/21 06:23 07:43 08:30 WBC RBC Hgb Hct MCH RDW Plt Count Seg Neuts % (Manual) Lymphocytes % (Manual) Nucleated RBC % Seg Neutrophils # Man Lymphocytes # (Manual) PT ABG pH 7.309 L POC ABG pCO2 POC ABG pO2 70.6 L ABG pO2 ABG O2 Saturation ABG Base Excess ABG Hemoglobin 9.16 L ABG Oxyhemoglobin 92.4 L ABG Potassium ABG Chloride ABG Glucose Oxyhemoglobin Carboxyhemoglobin Sodium Potassium Chloride 110.1 H Carbon Dioxide 15 L BUN 109 H Creatinine 4.3 H Glucose 218 H POC Glucose 187 H Hemoglobin A1c Lactic Acid Calcium Phosphorus Magnesium Transferrin AST 53 H ALT Alkaline Phosphatase 148 H Total Creatine Kinase 1000 H CK-MB (CK-2) Serum Total Protein Total Protein 5.2 L Albumin 1.2 L Bnqik-3-Jjcfmhzlx Ugchx-4-Svzwvhtrd Gamma Globulins PEP Interpretation HDL Cholesterol TSH Arterial Blood Glucose Arterial Blood Ionized Calcium Urine WBC (Auto) Urine Creatinine Urine Total Protein Crossmatch 04/27/21 04/27/21 04/27/21 11:54 21:08 23:28 WBC RBC Hgb Hct MCH RDW Plt Count Seg Neuts % (Manual) Lymphocytes % (Manual) Nucleated RBC % Seg Neutrophils # Man Lymphocytes # (Manual) PT ABG pH POC ABG pCO2 POC ABG pO2 ABG pO2 ABG O2 Saturation ABG Base Excess ABG Hemoglobin ABG Oxyhemoglobin ABG Potassium ABG Chloride ABG Glucose Oxyhemoglobin Carboxyhemoglobin Sodium Potassium Chloride Carbon Dioxide BUN Creatinine Glucose POC Glucose 147 H 136 H 201 H Hemoglobin A1c Lactic Acid Calcium Phosphorus Magnesium Transferrin AST ALT Alkaline Phosphatase Total Creatine Kinase CK-MB (CK-2) Serum Total Protein Total Protein Albumin Xfhjt-3-Mcybmlnnx Oxtej-8-Ithzsvvkl Gamma Globulins PEP Interpretation HDL Cholesterol TSH Arterial Blood Glucose Arterial Blood Ionized Calcium Urine WBC (Auto) Urine Creatinine Urine Total Protein Crossmatch 04/28/21 04/28/21 04/28/21 04:00 04:00 05:00 WBC 12.6 H RBC 3.59 L Hgb 9.4 L Hct MCH 26 L RDW 16.6 H Plt Count 111 L Seg Neuts % (Manual) Lymphocytes % (Manual) 1.0 L Nucleated RBC % 4.0 H Seg Neutrophils # Man 11.6 H Lymphocytes # (Manual) 0.1 L PT 15.3 H ABG pH POC ABG pCO2 POC ABG pO2 ABG pO2 ABG O2 Saturation ABG Base Excess ABG Hemoglobin ABG Oxyhemoglobin ABG Potassium ABG Chloride ABG Glucose Oxyhemoglobin Carboxyhemoglobin Sodium 147 H Potassium 3.5 L D Chloride Carbon Dioxide BUN 79 H Creatinine 3.8 H Glucose 194 H POC Glucose Hemoglobin A1c Lactic Acid Calcium 8.1 L Phosphorus Magnesium Transferrin AST ALT Alkaline Phosphatase Total Creatine Kinase CK-MB (CK-2) Serum Total Protein Total Protein Albumin Vnhqj-5-Jkmskcvla Ordbc-2-Abxmiiyld Gamma Globulins PEP Interpretation HDL Cholesterol TSH Arterial Blood Glucose Arterial Blood Ionized Calcium Urine WBC (Auto) Urine Creatinine Urine Total Protein Crossmatch 04/28/21 04/28/21 04/28/21 05:08 05:18 11:04 WBC RBC Hgb Hct MCH RDW Plt Count Seg Neuts % (Manual) Lymphocytes % (Manual) Nucleated RBC % Seg Neutrophils # Man Lymphocytes # (Manual) PT ABG pH POC ABG pCO2 POC ABG pO2 66.5 L ABG pO2 ABG O2 Saturation ABG Base Excess ABG Hemoglobin 9.7 L ABG Oxyhemoglobin 92.5 L ABG Potassium 3.2 L ABG Chloride ABG Glucose 200 H Oxyhemoglobin Carboxyhemoglobin Sodium Potassium Chloride Carbon Dioxide BUN Creatinine Glucose POC Glucose 183 H 174 H Hemoglobin A1c Lactic Acid Calcium Phosphorus Magnesium Transferrin AST ALT Alkaline Phosphatase Total Creatine Kinase CK-MB (CK-2) Serum Total Protein Total Protein Albumin Lyitj-4-Dhqrebyxj Oqjot-3-Wbfldphkb Gamma Globulins PEP Interpretation HDL Cholesterol TSH Arterial Blood Glucose 200 H Arterial Blood Ionized Calcium 4.5 L Urine WBC (Auto) Urine Creatinine Urine Total Protein Crossmatch 04/28/21 04/28/21 04/28/21 17:16 21:14 23:41 WBC RBC Hgb Hct MCH RDW Plt Count Seg Neuts % (Manual) Lymphocytes % (Manual) Nucleated RBC % Seg Neutrophils # Man Lymphocytes # (Manual) PT ABG pH POC ABG pCO2 POC ABG pO2 ABG pO2 ABG O2 Saturation ABG Base Excess ABG Hemoglobin ABG Oxyhemoglobin ABG Potassium ABG Chloride ABG Glucose Oxyhemoglobin Carboxyhemoglobin Sodium Potassium Chloride Carbon Dioxide BUN Creatinine Glucose POC Glucose 135 H 134 H 171 H Hemoglobin A1c Lactic Acid Calcium Phosphorus Magnesium Transferrin AST ALT Alkaline Phosphatase Total Creatine Kinase CK-MB (CK-2) Serum Total Protein Total Protein Albumin Hhams-7-Laujqeqqx Yczyi-4-Pdcvteydg Gamma Globulins PEP Interpretation HDL Cholesterol TSH Arterial Blood Glucose Arterial Blood Ionized Calcium Urine WBC (Auto) Urine Creatinine Urine Total Protein Crossmatch 04/29/21 04/29/21 04/29/21 01:16 04:00 04:00 WBC 13.3 H RBC 3.12 L Hgb 8.3 L Hct 26.2 L MCH 27 L RDW 16.3 H Plt Count 132 L Seg Neuts % (Manual) Lymphocytes % (Manual) Nucleated RBC % Seg Neutrophils # Man Lymphocytes # (Manual) PT ABG pH POC ABG pCO2 POC ABG pO2 ABG pO2 ABG O2 Saturation ABG Base Excess ABG Hemoglobin ABG Oxyhemoglobin ABG Potassium ABG Chloride ABG Glucose Oxyhemoglobin Carboxyhemoglobin Sodium Potassium Chloride Carbon Dioxide BUN 63 H Creatinine 3.4 H Glucose 249 H POC Glucose 236 H Hemoglobin A1c Lactic Acid Calcium 8.2 L Phosphorus Magnesium Transferrin AST 61 H ALT 71 H Alkaline Phosphatase 170 H Total Creatine Kinase CK-MB (CK-2) Serum Total Protein Total Protein 5.1 L Albumin 1.6 L Tghnk-3-Whiymencz Fkfiy-1-Vcwugukom Gamma Globulins PEP Interpretation HDL Cholesterol TSH Arterial Blood Glucose Arterial Blood Ionized Calcium Urine WBC (Auto) Urine Creatinine Urine Total Protein Crossmatch 04/29/21 04/29/21 04/29/21 11:35 13:30 16:01 WBC RBC Hgb Hct MCH RDW Plt Count Seg Neuts % (Manual) Lymphocytes % (Manual) Nucleated RBC % Seg Neutrophils # Man Lymphocytes # (Manual) PT ABG pH POC ABG pCO2 POC ABG pO2 ABG pO2 ABG O2 Saturation ABG Base Excess ABG Hemoglobin ABG Oxyhemoglobin ABG Potassium ABG Chloride ABG Glucose Oxyhemoglobin Carboxyhemoglobin Sodium Potassium Chloride Carbon Dioxide BUN Creatinine Glucose POC Glucose 320 H 297 H Hemoglobin A1c Lactic Acid Calcium Phosphorus Magnesium Transferrin AST ALT Alkaline Phosphatase Total Creatine Kinase CK-MB (CK-2) Serum Total Protein Total Protein Albumin Cwmpv-7-Tijvcyyjt Eelnq-8-Sbviwvabi Gamma Globulins PEP Interpretation HDL Cholesterol TSH Arterial Blood Glucose Arterial Blood Ionized Calcium Urine WBC (Auto) > 182.0 H Urine Creatinine Urine Total Protein Crossmatch 04/29/21 04/29/21 04/30/21 21:58 23:35 04:00 WBC 11.4 H RBC 3.27 L Hgb 8.7 L Hct 27.5 L MCH 27 L RDW 16.6 H Plt Count Seg Neuts % (Manual) Lymphocytes % (Manual) Nucleated RBC % Seg Neutrophils # Man Lymphocytes # (Manual) PT ABG pH POC ABG pCO2 POC ABG pO2 ABG pO2 ABG O2 Saturation ABG Base Excess ABG Hemoglobin ABG Oxyhemoglobin ABG Potassium ABG Chloride ABG Glucose Oxyhemoglobin Carboxyhemoglobin Sodium Potassium Chloride Carbon Dioxide BUN Creatinine Glucose POC Glucose 260 H 254 H Hemoglobin A1c Lactic Acid Calcium Phosphorus Magnesium Transferrin AST ALT Alkaline Phosphatase Total Creatine Kinase CK-MB (CK-2) Serum Total Protein Total Protein Albumin Aclmk-8-Babbdzshr Eyyeu-0-Ahfdnezpj Gamma Globulins PEP Interpretation HDL Cholesterol TSH Arterial Blood Glucose Arterial Blood Ionized Calcium Urine WBC (Auto) Urine Creatinine Urine Total Protein Crossmatch 04/30/21 04/30/21 04/30/21 04:00 05:17 05:31 WBC RBC Hgb Hct MCH RDW Plt Count Seg Neuts % (Manual) Lymphocytes % (Manual) Nucleated RBC % Seg Neutrophils # Man Lymphocytes # (Manual) PT ABG pH 7.452 H POC ABG pCO2 30.5 L POC ABG pO2 54.5 L ABG pO2 ABG O2 Saturation ABG Base Excess ABG Hemoglobin 10.1 L ABG Oxyhemoglobin 87.4 L ABG Potassium 2.9 L ABG Chloride ABG Glucose 305 H Oxyhemoglobin Carboxyhemoglobin Sodium Potassium 3.1 L Chloride Carbon Dioxide BUN 79 H Creatinine 3.9 H Glucose 275 H POC Glucose 267 H Hemoglobin A1c Lactic Acid Calcium Phosphorus 5.60 H D Magnesium Transferrin AST ALT Alkaline Phosphatase Total Creatine Kinase CK-MB (CK-2) Serum Total Protein Total Protein Albumin Kvveb-6-Gmfdonlfy Ynlpo-5-Gnpwywbhw Gamma Globulins PEP Interpretation HDL Cholesterol TSH Arterial Blood Glucose 305 H Arterial Blood Ionized Calcium Urine WBC (Auto) Urine Creatinine Urine Total Protein Crossmatch 04/30/21 04/30/21 04/30/21 12:31 17:50 22:24 WBC RBC Hgb Hct MCH RDW Plt Count Seg Neuts % (Manual) Lymphocytes % (Manual) Nucleated RBC % Seg Neutrophils # Man Lymphocytes # (Manual) PT ABG pH POC ABG pCO2 POC ABG pO2 ABG pO2 ABG O2 Saturation ABG Base Excess ABG Hemoglobin ABG Oxyhemoglobin ABG Potassium ABG Chloride ABG Glucose Oxyhemoglobin Carboxyhemoglobin Sodium Potassium Chloride Carbon Dioxide BUN Creatinine Glucose POC Glucose 259 H 161 H 146 H Hemoglobin A1c Lactic Acid Calcium Phosphorus Magnesium Transferrin AST ALT Alkaline Phosphatase Total Creatine Kinase CK-MB (CK-2) Serum Total Protein Total Protein Albumin Errwr-4-Mgzqivodf Bfroo-3-Thczmslxq Gamma Globulins PEP Interpretation HDL Cholesterol TSH Arterial Blood Glucose Arterial Blood Ionized Calcium Urine WBC (Auto) Urine Creatinine Urine Total Protein Crossmatch 05/01/21 05/01/21 05/01/21 00:09 03:30 04:00 WBC 12.0 H RBC 3.08 L Hgb 8.1 L Hct 25.6 L MCH 26 L RDW 16.3 H Plt Count Seg Neuts % (Manual) Lymphocytes % (Manual) Nucleated RBC % Seg Neutrophils # Man Lymphocytes # (Manual) PT ABG pH 7.493 H POC ABG pCO2 POC ABG pO2 ABG pO2 ABG O2 Saturation ABG Base Excess ABG Hemoglobin 9.3 L ABG Oxyhemoglobin ABG Potassium ABG Chloride ABG Glucose 167 H Oxyhemoglobin Carboxyhemoglobin 0.4 L Sodium Potassium Chloride Carbon Dioxide BUN Creatinine Glucose POC Glucose 149 H Hemoglobin A1c Lactic Acid Calcium Phosphorus Magnesium Transferrin AST ALT Alkaline Phosphatase Total Creatine Kinase CK-MB (CK-2) Serum Total Protein Total Protein Albumin Yyjdj-6-Qxcgpbywr Ankzg-4-Uuvpfbhff Gamma Globulins PEP Interpretation HDL Cholesterol TSH Arterial Blood Glucose 167 H Arterial Blood Ionized Calcium Urine WBC (Auto) Urine Creatinine Urine Total Protein Crossmatch 05/01/21 05/01/21 05/01/21 04:00 05:48 11:49 WBC RBC Hgb Hct MCH RDW Plt Count Seg Neuts % (Manual) Lymphocytes % (Manual) Nucleated RBC % Seg Neutrophils # Man Lymphocytes # (Manual) PT ABG pH POC ABG pCO2 POC ABG pO2 ABG pO2 ABG O2 Saturation ABG Base Excess ABG Hemoglobin ABG Oxyhemoglobin ABG Potassium ABG Chloride ABG Glucose Oxyhemoglobin Carboxyhemoglobin Sodium Potassium 3.5 L Chloride Carbon Dioxide BUN 62 H Creatinine 3.3 H Glucose 179 H POC Glucose 197 H 167 H Hemoglobin A1c Lactic Acid Calcium 8.3 L Phosphorus Magnesium Transferrin AST ALT Alkaline Phosphatase Total Creatine Kinase CK-MB (CK-2) Serum Total Protein Total Protein Albumin Niipj-7-Eadjbaiza Tzoje-9-Vrqxvjlto Gamma Globulins PEP Interpretation HDL Cholesterol TSH Arterial Blood Glucose Arterial Blood Ionized Calcium Urine WBC (Auto) Urine Creatinine Urine Total Protein Crossmatch 05/01/21 05/01/21 05/02/21 16:24 23:25 04:00 WBC 14.2 H RBC 2.61 L Hgb 6.9 L Hct 22.1 L MCH 27 L RDW 16.1 H Plt Count Seg Neuts % (Manual) Lymphocytes % (Manual) Nucleated RBC % Seg Neutrophils # Man Lymphocytes # (Manual) PT ABG pH POC ABG pCO2 POC ABG pO2 ABG pO2 ABG O2 Saturation ABG Base Excess ABG Hemoglobin ABG Oxyhemoglobin ABG Potassium ABG Chloride ABG Glucose Oxyhemoglobin Carboxyhemoglobin Sodium Potassium Chloride Carbon Dioxide BUN Creatinine Glucose POC Glucose 157 H 147 H Hemoglobin A1c Lactic Acid Calcium Phosphorus Magnesium Transferrin AST ALT Alkaline Phosphatase Total Creatine Kinase CK-MB (CK-2) Serum Total Protein Total Protein Albumin Ppsyr-5-Luizxeibg Srvdk-4-Lsapuzxdo Gamma Globulins PEP Interpretation HDL Cholesterol TSH Arterial Blood Glucose Arterial Blood Ionized Calcium Urine WBC (Auto) Urine Creatinine Urine Total Protein Crossmatch 05/02/21 05/02/21 05/02/21 04:00 04:34 05:23 WBC RBC Hgb Hct MCH RDW Plt Count Seg Neuts % (Manual) Lymphocytes % (Manual) Nucleated RBC % Seg Neutrophils # Man Lymphocytes # (Manual) PT ABG pH 7.487 H POC ABG pCO2 POC ABG pO2 78.6 L ABG pO2 ABG O2 Saturation ABG Base Excess ABG Hemoglobin 11.5 L ABG Oxyhemoglobin ABG Potassium ABG Chloride ABG Glucose 122 H Oxyhemoglobin Carboxyhemoglobin Sodium Potassium Chloride Carbon Dioxide BUN 49 H Creatinine 2.8 H Glucose 117 H POC Glucose 119 H Hemoglobin A1c Lactic Acid Calcium Phosphorus Magnesium Transferrin AST ALT Alkaline Phosphatase Total Creatine Kinase CK-MB (CK-2) Serum Total Protein Total Protein Albumin Stxzd-1-Zdjqglamb Izcht-5-Ftvivjjfd Gamma Globulins PEP Interpretation HDL Cholesterol TSH Arterial Blood Glucose 122 H Arterial Blood Ionized Calcium Urine WBC (Auto) Urine Creatinine Urine Total Protein Crossmatch 05/02/21 05/02/21 05/02/21 12:00 12:04 17:29 WBC RBC Hgb Hct MCH RDW Plt Count Seg Neuts % (Manual) Lymphocytes % (Manual) Nucleated RBC % Seg Neutrophils # Man Lymphocytes # (Manual) PT ABG pH POC ABG pCO2 POC ABG pO2 ABG pO2 ABG O2 Saturation ABG Base Excess ABG Hemoglobin ABG Oxyhemoglobin ABG Potassium ABG Chloride ABG Glucose Oxyhemoglobin Carboxyhemoglobin Sodium Potassium Chloride Carbon Dioxide BUN Creatinine Glucose POC Glucose 115 H 120 H Hemoglobin A1c Lactic Acid Calcium Phosphorus Magnesium Transferrin AST ALT Alkaline Phosphatase Total Creatine Kinase CK-MB (CK-2) Serum Total Protein Total Protein Albumin Lvusv-3-Kwrdfvuxa Kzfbq-4-Qqbgsigqu Gamma Globulins PEP Interpretation HDL Cholesterol TSH Arterial Blood Glucose Arterial Blood Ionized Calcium Urine WBC (Auto) Urine Creatinine Urine Total Protein Crossmatch See Detail 05/02/21 05/03/21 05/03/21 23:36 04:00 04:00 WBC 13.9 H RBC 3.22 L Hgb 8.7 L Hct 27.4 L MCH 27 L RDW 15.8 H Plt Count Seg Neuts % (Manual) Lymphocytes % (Manual) Nucleated RBC % Seg Neutrophils # Man Lymphocytes # (Manual) PT ABG pH POC ABG pCO2 POC ABG pO2 ABG pO2 ABG O2 Saturation ABG Base Excess ABG Hemoglobin ABG Oxyhemoglobin ABG Potassium ABG Chloride ABG Glucose Oxyhemoglobin Carboxyhemoglobin Sodium 146 H Potassium 3.5 L Chloride 107.5 H Carbon Dioxide BUN 40 H Creatinine 2.5 H Glucose 104 H POC Glucose 130 H Hemoglobin A1c Lactic Acid Calcium Phosphorus Magnesium Transferrin AST 53 H ALT Alkaline Phosphatase 149 H Total Creatine Kinase CK-MB (CK-2) Serum Total Protein Total Protein 5.2 L Albumin 1.5 L Vnipa-3-Hdhmkeqmm Ysprq-1-Gupqqonau Gamma Globulins PEP Interpretation HDL Cholesterol TSH Arterial Blood Glucose Arterial Blood Ionized Calcium Urine WBC (Auto) Urine Creatinine Urine Total Protein Crossmatch 05/03/21 05/04/21 05/04/21 17:26 01:24 04:48 WBC 14.3 H RBC 3.14 L Hgb 8.5 L Hct 26.3 L MCH 27 L RDW 15.8 H Plt Count Seg Neuts % (Manual) Lymphocytes % (Manual) Nucleated RBC % Seg Neutrophils # Man Lymphocytes # (Manual) PT ABG pH POC ABG pCO2 POC ABG pO2 ABG pO2 ABG O2 Saturation ABG Base Excess ABG Hemoglobin ABG Oxyhemoglobin ABG Potassium ABG Chloride ABG Glucose Oxyhemoglobin Carboxyhemoglobin Sodium Potassium Chloride Carbon Dioxide BUN Creatinine Glucose POC Glucose 123 H 146 H Hemoglobin A1c Lactic Acid Calcium Phosphorus Magnesium Transferrin AST ALT Alkaline Phosphatase Total Creatine Kinase CK-MB (CK-2) Serum Total Protein Total Protein Albumin Xoltl-9-Kogucvsth Zrhor-0-Bctocghei Gamma Globulins PEP Interpretation HDL Cholesterol TSH Arterial Blood Glucose Arterial Blood Ionized Calcium Urine WBC (Auto) Urine Creatinine Urine Total Protein Crossmatch 05/04/21 05/04/21 05/04/21 04:48 05:15 11:24 WBC RBC Hgb Hct MCH RDW Plt Count Seg Neuts % (Manual) Lymphocytes % (Manual) Nucleated RBC % Seg Neutrophils # Man Lymphocytes # (Manual) PT ABG pH POC ABG pCO2 POC ABG pO2 ABG pO2 ABG O2 Saturation ABG Base Excess ABG Hemoglobin ABG Oxyhemoglobin ABG Potassium ABG Chloride ABG Glucose Oxyhemoglobin Carboxyhemoglobin Sodium Potassium 3.5 L Chloride Carbon Dioxide BUN 58 H Creatinine 3.4 H Glucose 168 H POC Glucose 162 H 145 H Hemoglobin A1c Lactic Acid Calcium Phosphorus 5.30 H Magnesium Transferrin AST ALT Alkaline Phosphatase Total Creatine Kinase CK-MB (CK-2) Serum Total Protein Total Protein Albumin Bmkzo-2-Noqzbpqtv Spwtf-1-Rgipnypuj Gamma Globulins PEP Interpretation HDL Cholesterol 24 L TSH Arterial Blood Glucose Arterial Blood Ionized Calcium Urine WBC (Auto) Urine Creatinine Urine Total Protein Crossmatch 05/04/21 05/04/21 05/05/21 16:01 23:32 04:00 WBC RBC Hgb Hct MCH RDW Plt Count Seg Neuts % (Manual) Lymphocytes % (Manual) Nucleated RBC % Seg Neutrophils # Man Lymphocytes # (Manual) PT ABG pH POC ABG pCO2 POC ABG pO2 ABG pO2 ABG O2 Saturation ABG Base Excess ABG Hemoglobin ABG Oxyhemoglobin ABG Potassium ABG Chloride ABG Glucose Oxyhemoglobin Carboxyhemoglobin Sodium Potassium 3.4 L Chloride Carbon Dioxide BUN 43 H Creatinine 2.7 H Glucose 124 H POC Glucose 148 H 134 H Hemoglobin A1c Lactic Acid Calcium 8.2 L Phosphorus Magnesium Transferrin AST ALT Alkaline Phosphatase Total Creatine Kinase CK-MB (CK-2) Serum Total Protein Total Protein Albumin Pmyfe-0-Xkevtkntm Yksyv-7-Xjrygcshu Gamma Globulins PEP Interpretation HDL Cholesterol TSH Arterial Blood Glucose Arterial Blood Ionized Calcium Urine WBC (Auto) Urine Creatinine Urine Total Protein Crossmatch 05/05/21 05/06/21 05/06/21 05:14 00:01 04:00 WBC RBC Hgb Hct MCH RDW Plt Count Seg Neuts % (Manual) Lymphocytes % (Manual) Nucleated RBC % Seg Neutrophils # Man Lymphocytes # (Manual) PT ABG pH POC ABG pCO2 POC ABG pO2 ABG pO2 ABG O2 Saturation ABG Base Excess ABG Hemoglobin ABG Oxyhemoglobin ABG Potassium ABG Chloride ABG Glucose Oxyhemoglobin Carboxyhemoglobin Sodium Potassium 3.2 L Chloride Carbon Dioxide BUN 56 H Creatinine 3.0 H Glucose 110 H POC Glucose 120 H 120 H Hemoglobin A1c Lactic Acid Calcium 7.8 L Phosphorus 4.60 H Magnesium Transferrin AST ALT Alkaline Phosphatase Total Creatine Kinase CK-MB (CK-2) Serum Total Protein Total Protein Albumin Nyznn-3-Evnyvciae Bgakc-3-Mjncllfpz Gamma Globulins PEP Interpretation HDL Cholesterol TSH Arterial Blood Glucose Arterial Blood Ionized Calcium Urine WBC (Auto) Urine Creatinine Urine Total Protein Crossmatch 05/06/21 05/06/21 05/06/21 04:27 05:15 17:37 WBC RBC 3.03 L Hgb 8.3 L Hct 25.4 L MCH 27 L RDW Plt Count Seg Neuts % (Manual) Lymphocytes % (Manual) Nucleated RBC % Seg Neutrophils # Man Lymphocytes # (Manual) PT ABG pH POC ABG pCO2 POC ABG pO2 ABG pO2 ABG O2 Saturation ABG Base Excess ABG Hemoglobin ABG Oxyhemoglobin ABG Potassium ABG Chloride ABG Glucose Oxyhemoglobin Carboxyhemoglobin Sodium Potassium Chloride Carbon Dioxide BUN Creatinine Glucose POC Glucose 137 H 132 H Hemoglobin A1c Lactic Acid Calcium Phosphorus Magnesium Transferrin AST ALT Alkaline Phosphatase Total Creatine Kinase CK-MB (CK-2) Serum Total Protein Total Protein Albumin Yfuae-1-Mgegxznyf Jbiee-3-Eerxhtlum Gamma Globulins PEP Interpretation HDL Cholesterol TSH Arterial Blood Glucose Arterial Blood Ionized Calcium Urine WBC (Auto) Urine Creatinine Urine Total Protein Crossmatch 05/07/21 05/07/21 05/07/21 00:30 04:23 05:30 WBC RBC Hgb Hct MCH RDW Plt Count Seg Neuts % (Manual) Lymphocytes % (Manual) Nucleated RBC % Seg Neutrophils # Man Lymphocytes # (Manual) PT ABG pH POC ABG pCO2 POC ABG pO2 ABG pO2 ABG O2 Saturation ABG Base Excess ABG Hemoglobin ABG Oxyhemoglobin ABG Potassium ABG Chloride ABG Glucose Oxyhemoglobin Carboxyhemoglobin Sodium Potassium 3.4 L Chloride 107.1 H Carbon Dioxide BUN 28 H Creatinine 1.9 H Glucose 165 H POC Glucose 121 H 205 H Hemoglobin A1c Lactic Acid Calcium 8.2 L Phosphorus Magnesium Transferrin AST ALT Alkaline Phosphatase Total Creatine Kinase CK-MB (CK-2) Serum Total Protein Total Protein Albumin Erpty-9-Jqxbjirux Eaxln-7-Ikqfcxwnv Gamma Globulins PEP Interpretation HDL Cholesterol TSH Arterial Blood Glucose Arterial Blood Ionized Calcium Urine WBC (Auto) Urine Creatinine Urine Total Protein Crossmatch 05/07/21 11:37 WBC RBC Hgb Hct MCH RDW Plt Count Seg Neuts % (Manual) Lymphocytes % (Manual) Nucleated RBC % Seg Neutrophils # Man Lymphocytes # (Manual) PT ABG pH POC ABG pCO2 POC ABG pO2 ABG pO2 ABG O2 Saturation ABG Base Excess ABG Hemoglobin ABG Oxyhemoglobin ABG Potassium ABG Chloride ABG Glucose Oxyhemoglobin Carboxyhemoglobin Sodium Potassium Chloride Carbon Dioxide BUN Creatinine Glucose POC Glucose 148 H Hemoglobin A1c Lactic Acid Calcium Phosphorus Magnesium Transferrin AST ALT Alkaline Phosphatase Total Creatine Kinase CK-MB (CK-2) Serum Total Protein Total Protein Albumin Xnaeb-9-Qpxvraefv Szdht-9-Cbwrxdinj Gamma Globulins PEP Interpretation HDL Cholesterol TSH Arterial Blood Glucose Arterial Blood Ionized Calcium Urine WBC (Auto) Urine Creatinine Urine Total Protein Crossmatch
--- NOTE | 2021-05-07 13:09 | Progress Note ---
Assessment and Plan Cultures: 04/21/2021 blood culture: No growth 04/21/2021 COVID-19 PCR: Negative 04/26/2021 sputum culture: Roselyn nonalbicans 04/29/2021 tracheal aspirate culture: Moderate growth of usual respiratory stanley 04/29/2021 blood culture: No growth 05/02/2021 urine culture: yeast A/P: 80-year-old female who is a half-way resident, with hypothyroidism, GERD, hyperlipidemia, schizophrenia, dementia was admitted on 04/20/2021 after being found unresponsive by the staff: #Septic shock: Likely from pneumonia and UTI. 04/29/2021 UA showed significant pyuria. Luther was changed. Typically candiduria does not need antifungal therapy especially since Luther was changed. However, given septic shock, treat with fluconazole 200 mg daily x 5 days #Acute respiratory failure: On the vent #Acute renal failure: Renally adjust antibiotics. On dialysis. #Acute metabolic encephalopathy: Initially related to severe hyponatremia which peaked at sodium of 179. #Acute CVA: neurology following. Recs: -continue IV meropenem, renally adjusted, D6 of 7 -fluconazole 200 mg daily x 5 days, D3 Juanita Darling MD, FACP, [facility] ([facility]) O: [phone] F: [phone] Subjective Date of service: 05/07/21 Principal diagnosis: Acute respiratory failure Interval history: No fever. Remains on the vent. Remains off pressors. Objective - Exam Narrative Exam: Physical Exam: Constitutional: sedated, intubated, on the vent Head, Ears, Nose: Normocephalic, atraumatic. External ears, nose normal Eyes: Conjunctivae/corneas clear. No icterus. No ptosis. Neck: intubated Oral: intubated Cardiovascular: S1, S2 + Respiratory: AE fair bilaterally and equal GI: Soft, bowel sounds + Musculoskeletal: Anasarca + Skin: No rash or abscess Hem/Lymphatic: No palpable cervical or supraclavicular nodes. No lymphangitis Psych: no agitation Neurological: sedated, intubated, on the vent, exam limited - Constitutional Vitals: Vital Signs Temp Pulse Resp BP Pulse Ox 99.6 F 73 14 124/54 98 05/07/21 12:00 05/07/21 12:30 05/07/21 12:30 05/07/21 12:30 05/07/21 12:30 Temperature -Last 24 Hours Temperature 99.6 F Temperature 99.6 F Temperature 99.3 F Temperature 98.7 F Temperature 97.9 F Temperature 97.7 F Temperature 97.9 F - Labs CBC & Chem 7: 05/06/21 04:27 05/07/21 04:23 Labs: Abnormal lab results 05/06/21 05/07/21 05/07/21 Range/Units 17:37 00:30 04:23 Potassium 3.4 L (3.6-5.0) mmol/L Chloride 107.1 H (98-107) mmol/L BUN 28 H (7-17) mg/dL Creatinine 1.9 H (0.6-1.2) mg/dL Glucose 165 H (65-100) mg/dL POC Glucose 132 H 121 H (70-105) mg/dL Calcium 8.2 L (8.4-10.2) mg/dL 05/07/21 05/07/21 Range/Units 05:30 11:37 Potassium (3.6-5.0) mmol/L Chloride (98-107) mmol/L BUN (7-17) mg/dL Creatinine (0.6-1.2) mg/dL Glucose (65-100) mg/dL POC Glucose 205 H 148 H (70-105) mg/dL Calcium (8.4-10.2) mg/dL
[2021-05-07] MEDS: MEROPENEM/NS 1 GRAM/100 ML 1 GRAM/100 ML BAG IV SCH (15:44)
[2021-05-07] MEDS: FLUCONAZOLE 200 MG 200 MG/100 ML BAG IV SCH (15:53)
[2021-05-07] MEDS ORDERED: POTASSIUM CHLORIDE 20 MEQ PACKET FEEDTUBE ONE (18:07)
--- NOTE | 2021-05-07 18:09 | Progress Note ---
<TANYAHENRIETTA ShannonJericho - Last Filed: 05/07/21 18:04> Assessment and Plan Assessment and plan: This is a 80-year-old female halfway resident with GERD, hypothyroidism, hyperlipidemia, schizophrenia and dementia admitted with hypothermia, hyponatremia, hypokalemia, lactic acidosis, acute kidney injury, rhabdomyolysis and hyperosmolar nonketotic state. Neuro: Acute CVA, acute metabolic encephalopathy, normal pressure hydrocephalus -CT head shows lateral ventricles and third ventricle dilation, raises possibility of normal pressure hydrocephalus -Neurology and neurosurgery consulted, appreciate recommendations -neurosurgery has no acute interventions -04/29 s/p spinal tap removal 24 mL, mental is unchanged -csf fluid showed {14 wbc,324 rbc,normal protein and glucose ,c/s is unremarkable so far} -MRI brain is remarkable for multiple ischemic event cortical as well as subcortical in both hemisphere and in all distribuation with slight petechial hemorrhage is noted findings is suggestive of possible embolic event with water shed infarct can not be totally excluded. -MRA/MRV completed-see chart for details - source of emboli is not found -LINCOLN tentatively not successful -ASA 81 and lipitor -LDL noted -PT/ST/OT consulted -Aspiration/seizure precautions -Maintain sleep-wake cycle -Avoid delirium -Correct electrolyte derangements -Hold off on restarting home antipsychotic medications when obtained -Risperidone 3 mg, Donepazil 5 mg Cardio: Hypotension -s/p Vasopressor support with Levophed -MAP goal above 65 -Midodrine 10 mg TID -Blood pressure monitoring per protocol -Home amlodipine 10 mg on hold Respiratory: Acute hypoxic respiratory failure -s/p Bipap and ventimask -s/p bronchoscopy on 04/26 -Intubated 04/26 with 7.5 oett at 22 lips -Am vent settings: AC rate 14, tidal volume 450, PEEP 6, FiO2 30% -see RT notes for titration -Attempted PSV today however the patient did not tolerate pressure support was increased all day to 10. She remains tachypneic and PSV aborted. -AM ABG noted -s/p racimec epi x2 04/22 and 04/23 -Supplemental oxygen as needed -SPO2 monitoring -Pulmonary hygiene -Repeat CXR shows increased interstitial prominence of densities in bilateral lungs GI: Hypoalbuminemia, transaminitis -Presented with transaminitis -Trend LFTs -Ntr consult for TF -FWF 140 ml Q 4 hr -24 hours +841 ml -HD 05/06 -BR: Senokot -PPI -Nutritional supplementation -BMS in place : Acute kidney injury likely secondary to vasomotor nephropathy, urinary retention, Hypokalemia, hypo magnesium [place], hyperphosphatemia -FeNA 0.50 indicating prerenal sate -Nephrology consulted, appreciate recommendations -HD initiated 04/27 -HD per nephrology -Luther catheter placed for strict intake and output; changed 05/02 -Avoid nephrotoxic medications -Trend BMP, CK -Renally dose medications -renal US WNL per read -May need to be initiated on phosphate binder -Replete potassium and magnesium ID: Sepsis likely 2/2 UTI and PNA -ID consulted, appreciate recommendations -COVID-19 PCR negative -04/26/2021 sputum culture: Roselyn nonalbicans -04/29/2021 UA showed significant pyuria. -UC Roselyn-> fluconazole -Lumbar puncture with CSF showing 14 WBC, 324 RBC, glucose 161, protein 51. -Abx per ID: IV meropenem, renally adjusted + fluconazole -Trend WBC and fever curve -f/u cultures Endo: s/p HHNK, h/o hypothyroidism -Restarted home levothyroxine (50 mcg q day) -s/p Insulin drip x2 -SSI -TSH 6.04, T4 0.93 -Avoid hypoglycemia Heme: Anemia -HIT (-) -Trend CBC -Transfuse to hemoglobin less than 7 -s/p 1 unit PRBC -SCD to bilateral lower extremities while in bed -BUE dopplar US negative for DVT The high probability of a clinically significant, sudden or life threatening de terioration of the [multi] system(s) required my full and direct attention, intervention and personal management. The aggregate critical care time was [60] minutes. This time is in addition to time spent performing reported procedures but includes the following: [x] Data Review and interpretation [x] Patient assessment and monitoring of vital signs [x] Documentation [x] Medication orders and management Disposition Plan: icu Total Time Spent with Patient (Minutes): 60 History Interval history: This is a 80-year-old female who was halfway resident at [facility] with GERD, hypothyroidism, hyperlipidemia, schizophrenia and dementia presented to the emergency department on 04/20 after being found unresponsive by the staff via EMS. Per EMS glucose levels read as high. Work-up in the emergency department revealed severe hypernatremia, leukocytosis, metabolic acidosis, hyperchloremia, elevated BUN/creatinine, lactic acidosis and hyperglycemia. Patient was also hypothermic on admit. CT head showed findings suggestive of the possibility of normal pressure hydrocephalus. Patient was admitted to the hospitalist service with acute metabolic encephalopathy, diabetic hyperosmolar nonketotic state, acute kidney injury, hypernatremia, rhabdomyolysis and leukocytosis with consults to nephrology and [facility]. 04/21: Given 1 L LR bolus per nephrology and D5W increased to 125 mL's per hour, COVID-19 PCR pending, CXR and ABG ordered as patient was weaned from BiPAP to 3 L nasal cannula however was uptitrated back to nonrebreather. Will obtain blood cultures x2 given her leukocytosis and hypothermia. Replace potassium. Neurosurgery and neurology consulted and Luther catheter placed. 04/22: Improvement to sodium noted, slight hypokalemia which will be repleted, slight improvement to renal function, LFTs and rhabdomyolysis. Seen by neurosurgery today. Patient still making urine. transition to ssi and start TF as AG 15 04/23/2021: Given racemic epinephrine again due to stridor, continue IV fluids per nephrology, continue to trend sodium and BMP. 04/24/2021: /30 increased d/t hyperglycemia but recent BMP showed BG>300, gave additional 5 units IV insulin and ordered 5 units TID scheduled. However after IV insulin her PCOT was 400. Start on insulin gtt for hyperglycemia. Per RN she was not of IV D5 overnight d/t having one IV which was needed for emergency. Day RN did start dextrose. Remains with hyperglycemia. 04/25: Patient obtunded, withdrawal to pain only, on 50%Venti mask SPO2 abobe 92%. Plan to transition to SubQ insulin. Patient with mild hypernatremia this am, FWF added, will stop IVF for now. 04/26: Patient s/p intubation this am. Mentation is unchanged, plan for MRI brain today per NeuroSurg. Still hyperglycemic, hypernatremia improved, D5W D/katlyn, and basal insulin adjusted. 04/27: Bronch overnight. CXR with mild improvement. D/w Nephro plan for HD today, RIJ VasCath inserted. MRI on hold per CCM patient is too unstable at this time, plan for possible spinal drained tomorrow to see if mentation will improve. 04/28: Tolerated HD overnight, only UF. Mentation remains the same. D/w CCM plan for possible large volume spinal tap under fluoroscopy today. Plan for possible HD again today. Continue FWF for elevated Na. 04/29: MARY overnight. Plan for spinal tap this am. febrile overnight with leukocytosis, remains on pressors and more tachycardic now. Will panculture patient, and empiric IV was initiated. Remains hyperglycemic, basal insulin adjusted. 04/30: Patient's mentation remains unchanged post spinal tap. Plan for possible MRI brain next week. Afebrile overnight and leukocytosis improved, However, vent settings are going up and this am ABG with hypoxia, this am CXR with worsening opacities. Patient with 3+ pitting edema. Continue HD per Nephro. Continue current empiric IV abx, f/u on culture data, might need to get ID on board if worsen. 05/01: Mentation is unchanged, still on pressors. Febrile this am, continue IV abx, ID consulted. 3L out yesterday, plan for HD again tomorrow. Plt count improved, might need to restart AC, will D/w CCM. 05/02: No change in mentation and she is now noted to be decorticating to pain -> MRI brain ordered. Scheduled for HD today. ID consult completed. 05/03: Neurology consulted given MRI findings of multiple acute CVAs, LINCOLN ordered, EEG pending, started on aspirin and Lipitor. updated POA 05/04: Received hemodialysis today, will schedule for LINCOLN today however HD was ongoing at the time neurology will obtain MRA brain and neck then consider LINCOLN, increasing midodrine to aid in weaning Levophed. 05/05: MRA/MRV completed today, urine culture grew Roselyn and was started on fluconazole, LINCOLN tentatively scheduled for tomorrow. Resume tube feeding and n.p.o. at midnight. 05/06: Patient was scheduled for LINCOLN which was attempted however patient became hypotensive and the procedure was aborted. She received HD today. No acute events reported overnight. Tube feedings resumed. 05/07: No acute changes overnight. Hospitalist Physical - Physical exam Narrative exam: General appearance: Present: no acute distress, other (Intubated) - EENT Eyes: Present: PERRL, EOM intact ENT: dentition normal - Neck Neck: Present: normal ROM - Respiratory Respiratory effort: normal Respiratory: bilateral: diminished - Cardiovascular Rhythm: regular Heart Sounds: Present: S1 & S2 - Extremities Extremities: no ischemia, pulses intact, pulses symmetrical, normal temperature, normal color Peripheral Pulses: within normal limits - Abdominal General gastrointestinal: soft, non-tender, non-distended, normal bowel sounds - Integumentary Integumentary: Present: warm, dry - Psychiatric Psychiatric: other - Neurologic Neurologic: other (Pupils equal round reactive, opens eyes and attempts to track but does not follow commands.) - Allied Health Allied health notes reviewed: nursing, RT, social work - Constitutional Vitals: Temp Pulse Resp BP Pulse Ox 99.4 F 74 21 150/61 99 05/07/21 16:00 05/07/21 16:00 05/07/21 14:01 05/07/21 16:00 05/07/21 16:00 General appearance: Present: no acute distress, other (Intubated) HEART Score - HEART Score Troponin: Troponin T 0.021 ng/mL (0.00-0.029) 04/20/21 17:10 Results - Labs CBC & Chem 7: 05/06/21 04:27 05/07/21 04:23 Labs: Laboratory Last Values WBC 10.8 K/mm3 (4.5-11.0) 05/06/21 04:27 RBC 3.03 M/mm3 (3.65-5.03) L 05/06/21 04:27 Hgb 8.3 gm/dl (10.1-14.3) L 05/06/21 04:27 Hct 25.4 % (30.3-42.9) L 05/06/21 04:27 MCV 84 fl (79-97) 05/06/21 04:27 MCH 27 pg (28-32) L 05/06/21 04:27 MCHC 33 % (30-34) 05/06/21 04:27 RDW 15.2 % (13.2-15.2) 05/06/21 04:27 Plt Count 269 K/mm3 (140-440) 05/06/21 04:27 Add Manual Diff Complete 04/28/21 04:00 Total Counted 100 04/28/21 04:00 Seg Neutrophils % Ob/Gyn Nurse 04/28/21 04:00 Seg Neuts % (Manual) 77.0 % (40.0-70.0) H 04/26/21 09:33 Band Neutrophils % 2.0 % 04/28/21 04:00 Lymphocytes % (Manual) 1.0 % (13.4-35.0) L 04/28/21 04:00 Reactive Lymphs % (Man) 0 % 04/28/21 04:00 Monocytes % (Manual) 1.0 % (0.0-7.3) 04/28/21 04:00 Eosinophils % (Manual) 3.0 % (0.0-4.3) 04/28/21 04:00 Metamyelocytes % 1.0 % 04/28/21 04:00 Myelocytes % 0 % 04/28/21 04:00 Promyelocytes % 0 % 04/28/21 04:00 Blast Cells % 0 % 04/28/21 04:00 Nucleated RBC % 4.0 % (0.0-0.9) H 04/28/21 04:00 Seg Neutrophils # Man 11.6 K/mm3 (1.8-7.7) H 04/28/21 04:00 Band Neutrophils # 0.3 K/mm3 04/28/21 04:00 Lymphocytes # (Manual) 0.1 K/mm3 (1.2-5.4) L 04/28/21 04:00 Abs React Lymphs (Man) 0.0 K/mm3 04/28/21 04:00 Monocytes # (Manual) 0.1 K/mm3 (0.0-0.8) 04/28/21 04:00 Eosinophils # (Manual) 0.4 K/mm3 (0.0-0.4) 04/28/21 04:00 Basophils # (Manual) 0.0 K/mm3 (0.0-0.1) 04/28/21 04:00 Metamyelocytes # 0.1 K/mm3 04/28/21 04:00 Myelocytes # 0.0 K/mm3 04/28/21 04:00 Promyelocytes # 0.0 K/mm3 04/28/21 04:00 Blast Cells # 0.0 K/mm3 04/28/21 04:00 WBC Morphology Not Reportable 04/28/21 04:00 Hypersegmented Neuts Not Reportable 04/28/21 04:00 Hyposegmented Neuts Not Reportable 04/28/21 04:00 Hypogranular Neuts Not Reportable 04/28/21 04:00 Smudge Cells Not Reportable 04/28/21 04:00 Toxic Granulation Not Reportable 04/28/21 04:00 Toxic Vacuolation Not Reportable 04/28/21 04:00 Dohle Bodies Not Reportable 04/28/21 04:00 Pelger-Huet Anomaly Not Reportable 04/28/21 04:00 Moni Rods Not Reportable 04/28/21 04:00 Platelet Estimate Consistent w auto 04/28/21 04:00 Clumped Platelets Not Reportable 04/28/21 04:00 Plt Clumps, EDTA Not Reportable 04/28/21 04:00 Large Platelets Few 04/28/21 04:00 Giant Platelets Not Reportable 04/28/21 04:00 Platelet Satelliting Not Reportable 04/28/21 04:00 Plt Morphology Comment Not Reportable 04/28/21 04:00 RBC Morphology Not Reportable 04/28/21 04:00 Dimorphic RBCs Not Reportable 04/28/21 04:00 Polychromasia Not Reportable 04/28/21 04:00 Hypochromasia Not Reportable 04/28/21 04:00 Poikilocytosis Not Reportable 04/28/21 04:00 Anisocytosis Not Reportable 04/28/21 04:00 Microcytosis Not Reportable 04/28/21 04:00 Macrocytosis Not Reportable 04/28/21 04:00 Spherocytes Not Reportable 04/28/21 04:00 Pappenheimer Bodies Not Reportable 04/28/21 04:00 Sickle Cells Not Reportable 04/28/21 04:00 Target Cells 1+ 04/28/21 04:00 Tear Drop Cells Not Reportable 04/28/21 04:00 Ovalocytes Not Reportable 04/28/21 04:00 Helmet Cells Not Reportable 04/28/21 04:00 Parkinson-[place] Bodies Not Reportable 04/28/21 04:00 [place] Rings Not Reportable 04/28/21 04:00 [place] Cells Not Reportable 04/28/21 04:00 Bite Cells Not Reportable 04/28/21 04:00 Crenated Cell Not Reportable 04/28/21 04:00 Elliptocytes Not Reportable 04/28/21 04:00 Acanthocytes (Spur) Not Reportable 04/28/21 04:00 Rouleaux Not Reportable 04/28/21 04:00 Hemoglobin C Crystals Not Reportable 04/28/21 04:00 Schistocytes Not Reportable 04/28/21 04:00 Malaria parasites Not Reportable 04/28/21 04:00 Herrera Bodies Not Reportable 04/28/21 04:00 Hem Pathologist Commnt No 04/28/21 04:00 PT 15.3 Sec. (12.2-14.9) H 04/28/21 05:00 INR 1.09 (0.87-1.13) 04/28/21 05:00 APTT 36.6 Sec. (24.2-36.6) 04/28/21 05:00 Heparin Anti-Xa, Unfract Negative (Negative) 04/24/21 17:29 ABG pH 7.487 (7.320-7.450) H 05/02/21 04:34 POC ABG pCO2 35.3 mmHg (32.0-48.0) 05/02/21 04:34 ABG pCO2 31.6 mm Hg 04/21/21 15:47 POC ABG pO2 78.6 mmHg (83-108) L 05/02/21 04:34 ABG pO2 168.1 mm Hg (80.0-90.0) H 04/21/21 15:47 POC ABG HCO3 26.1 05/02/21 04:34 ABG HCO3 23.3 mmol/L (20.0-26.0) 04/21/21 15:47 ABG O2 Saturation 96.0 (0-100) 05/02/21 04:34 ABG O2 Content 12.7 (0.0-44) 04/21/21 15:47 POC ABG Base Excess 2.9 05/02/21 04:34 ABG Base Excess 0.3 mmol/L (-2.0-3.0) 04/21/21 15:47 ABG Hemoglobin 11.5 (12.0-17.5) L 05/02/21 04:34 ABG Oxyhemoglobin 95.1 (94-98) 05/02/21 04:34 ABG Carboxyhemoglobin 1.0 % (0.0-5.0) 04/21/21 15:47 ABG Methemoglobin 0.3 (0.0-1.5) 05/02/21 04:34 ABG Sodium 138.6 mmol/L (136.0-145.0) 05/02/21 04:34 ABG Potassium 3.4 mmol/L (3.40-4.50) 05/02/21 04:34 ABG Chloride 105.0 mmol/L (98-107) 05/02/21 04:34 ABG Glucose 122 mg/dL (65-95) H 05/02/21 04:34 VBG pH 7.397 (7.320-7.420) 04/20/21 17:10 Oxyhemoglobin 97.5 % (95.0-99.0) 04/21/21 15:47 Carboxyhemoglobin 0.6 (0.5-1.5) 05/02/21 04:34 FiO2 100 % 04/21/21 15:47 FiO2 % 40.0 05/02/21 04:34 Sodium 145 mmol/L (137-145) 05/07/21 04:23 Potassium 3.4 mmol/L (3.6-5.0) L 05/07/21 04:23 Chloride 107.1 mmol/L (98-107) H 05/07/21 04:23 Carbon Dioxide 25 mmol/L (22-30) 05/07/21 04:23 Anion Gap 16 mmol/L 05/07/21 04:23 BUN 28 mg/dL (7-17) H 05/07/21 04:23 Creatinine 1.9 mg/dL (0.6-1.2) H 05/07/21 04:23 Estimated GFR 31 ml/min 05/07/21 04:23 BUN/Creatinine Ratio 15 % 05/07/21 04:23 Glucose 165 mg/dL (65-100) H 05/07/21 04:23 POC Glucose 170 mg/dL (70-105) H 05/07/21 17:28 Hemoglobin A1c 17.1 % (4-6) H 04/22/21 15:55 Lactic Acid 1.90 mmol/L (0.7-2.0) 04/20/21 19:56 Calcium 8.2 mg/dL (8.4-10.2) L 05/07/21 04:23 Phosphorus 4.60 mg/dL (2.5-4.5) H 05/06/21 04:00 Magnesium 1.70 mg/dL (1.7-2.3) 05/06/21 04:00 Iron 62 ug/dL (37-170) 04/24/21 17:29 TIBC 285 mcg/dL (250-450) 04/24/21 17:29 % Saturation 21.75 % 04/24/21 17:29 Transferrin 112 mg/dl (192-382) L 04/24/21 17:29 Total Bilirubin 0.20 mg/dL (0.1-1.2) 05/03/21 04:00 Direct Bilirubin < 0.2 mg/dL (0-0.2) 04/29/21 04:00 Indirect Bilirubin 0.1 mg/dL 04/29/21 04:00 AST 53 units/L (5-40) H 05/03/21 04:00 ALT 55 units/L (7-56) 05/03/21 04:00 Alkaline Phosphatase 149 units/L (35-129) H 05/03/21 04:00 Ammonia 29.0 umol/L (25-60) 04/20/21 17:10 Total Creatine Kinase 1000 units/L (30-135) H 04/27/21 07:43 CK-MB (CK-2) 36.0 ng/mL (0.0-4.0) H 04/20/21 17:10 CK-MB (CK-2) Rel Index 0.9 (0-4) 04/20/21 17:10 Troponin T 0.021 ng/mL (0.00-0.029) 04/20/21 17:10 Serum Total Protein 5.5 g/dL (6.1-8.1) L 04/22/21 08:59 Total Protein 5.2 g/dL (6.3-8.2) L 05/03/21 04:00 Albumin 1.5 g/dL (3.9-5) L 05/03/21 04:00 Albumin/Globulin Ratio 0.4 % 05/03/21 04:00 Eymdf-2-Mrsqgjrpl 0.6 g/dL (0.2-0.3) H 04/22/21 08:59 Nfrwy-0-Bsnheqjgx 1.0 g/dL (0.5-0.9) H 04/22/21 08:59 Beta Globulins 0.3 g/dL (0.2-0.5) 04/22/21 08:59 Gamma Globulins 0.6 g/dL (0.8-1.7) L 04/22/21 08:59 Abnorm Protein Band 1 see below 04/22/21 08:59 PEP Interpretation see below H 04/22/21 08:59 Triglycerides 80 mg/dL (2-149) 05/04/21 04:48 Cholesterol 90 mg/dL (50-199) 05/04/21 04:48 LDL Cholesterol Direct 51 mg/dL (50-130) 05/04/21 04:48 HDL Cholesterol 24 mg/dL (40-59) L 05/04/21 04:48 Cholesterol/HDL Ratio 3.75 % 05/04/21 04:48 Serotonin Release Assay See scanned result 04/24/21 17:29 TSH 6.040 mlU/mL (0.270-4.200) H 04/20/21 17:10 Free T4 0.93 ng/dL (0.76-1.46) 04/20/21 17:10 Arterial Blood Glucose 122 mg/dL (65-95) H 05/02/21 04:34 Arterial Blood Ionized Calcium 4.5 mg/dL (4.6-5.3) L 04/28/21 05:18 Urine Color Yellow (Yellow) 04/29/21 13:30 Urine Turbidity Turbid (Clear) 04/29/21 13:30 Urine pH 5.0 (5.0-7.0) 04/29/21 13:30 Ur Specific [place] 1.010 (1.003-1.030) 04/29/21 13:30 Urine Protein 100 mg/dl mg/dL (Negative) 04/29/21 13:30 Urine Glucose (UA) 150 mg/dL (Negative) 04/29/21 13:30 Urine Ketones Neg mg/dL (Negative) 04/29/21 13:30 Urine Blood Lg (Negative) 04/29/21 13:30 Urine Nitrite Neg (Negative) 04/29/21 13:30 Urine Bilirubin Neg (Negative) 04/29/21 13:30 Urine Urobilinogen < 2.0 mg/dL (<2.0) 04/29/21 13:30 Ur Leukocyte Esterase Lg (Negative) 04/29/21 13:30 Urine WBC (Auto) > 182.0 /HPF (0.0-6.0) H 04/29/21 13:30 Urine RBC (Auto) > 182.0 /HPF (0.0-6.0) 04/29/21 13:30 U Epithel Cells (Auto) 4.0 /HPF (0-13.0) 04/29/21 13:30 Urine WBC Clumps 3+ /HPF 04/29/21 13:30 Urine Mucus Few /HPF 04/29/21 13:30 Urine Yeast (Budding) 3+ /HPF 04/29/21 13:30 Urine Osmolality 446 Mosm/kg 04/21/21 08:01 Urine Creatinine 44.3 mg/dL (0.1-20.0) H 04/21/21 08:01 Urine Sodium 71 mmol/L 04/21/21 08:01 Urine Total Protein 12 mg/dL (5-11.8) H 04/21/21 08:01 CSF Appearance Clear 04/29/21 11:45 CSF Color Colorless 04/29/21 11:45 CSF WBC 14 /mm3 (1-10) 04/29/21 11:45 CSF RBC 324 /mm3 (0-0) 04/29/21 11:45 CSF Seg Neutrophils 50.0 % (0-6) 04/29/21 11:45 CSF Lymphocytes % 40.0 % (40-80) 04/29/21 11:45 CSF Reactive Lymphs Not Reportable 04/29/21 11:45 CSF Monocytes % 10.0 % (15-45) 04/29/21 11:45 CSF Eosinophils % Not Reportable 04/29/21 11:45 CSF Basophils Not Reportable 04/29/21 11:45 CSF Pathologist Review C 04/29/21 11:45 CSF Glucose 161 mg/dL 04/29/21 11:45 CSF Total Protein 51 mg/dL 04/29/21 11:45 Plasma/Serum Alcohol < 0.01 % (0-0.07) 04/20/21 17:10 Heparin-induced Plt Ab Negative (Negative) 04/24/21 17:29 UF Heparin High Dose 1 % Release 04/24/21 17:29 EFE UFH Low Dose 0.1 0 % Release 04/24/21 17:29 EFE UFH Low Dose 0.5 0 % Release 04/24/21 17:29 Coronavirus (PCR) Negative (Negative) 04/21/21 Unknown Hepatitis A IgM Ab Non-reactive (NonReactive) 04/27/21 12:49 Hep Bs Antigen Nonreactive (Negative) 04/27/21 12:49 Hep B Core IgM Ab Non-reactive (NonReactive) 04/27/21 12:49 Hepatitis C Antibody Non-reactive (NonReactive) 04/27/21 12:49 Blood Type O POSITIVE 05/02/21 12:00 Antibody Screen Negative 05/02/21 12:00 Crossmatch See Detail 05/02/21 12:00 Luther/IV: Voiding Method Indwelling Catheter Active Medications - Current Medications Current Medications: Generic Name Dose Route Start Last Admin Trade Name Freq PRN Reason Stop Dose Admin Acetaminophen 650 mg 04/20/21 21:31 05/01/21 18:15 Acetaminophen 325 Mg Tab PO 650 mg Q4H PRN Administration Pain MILD(1-3)/Fever >100.5/TURCIOS Albumin Human 25 gm 05/06/21 16:06 05/06/21 16:21 Albumin Human 25% (25 Gm/100 Ml) Inj IV 25 gm MITCH PRN Administration Hypotension Albuterol 2.5 mg 04/22/21 14:49 04/23/21 15:18 Albuterol 2.5 Mg/3 Ml Nebu IH 2.5 mg Q4HRT PRN Administration Shortness Of Breath Lipase/Protease/Amylase 1 each 04/25/21 14:13 Lipase 10,500/Protease 25,000/Amylase 43,750 (Units) Dr Vasquez FEEDTUBE PRN PRN For Clogged Feeding Tube Aspirin 81 mg 05/04/21 10:00 05/07/21 09:06 Aspirin 81 Mg Tab Chew FEEDTUBE 81 mg QDAY AZIZA Administration Atorvastatin Calcium 40 mg 05/04/21 22:00 05/06/21 21:46 Atorvastatin 40 Mg Tab FEEDTUBE 40 mg QHS AZIZA Administration Dextrose 50 ml 04/24/21 11:36 Dextrose 50% In Water (25gm) 50 Ml Syringe IV Q30MIN PRN Hypoglycemia Protocol Famotidine 10 mg 04/27/21 10:00 05/07/21 09:07 Famotidine 10 Mg Tab FEEDTUBE 10 mg BID AZIZA Administration Hydralazine HCl 10 mg 04/24/21 21:22 Hydralazine 20 Mg/1 Ml Inj IV Q4HR PRN elevated BP Hydrophilic Ointment 1 applic 04/26/21 11:16 Lip Therapy Vaseline TP Q2HR PRN Dry Lips NORepinephrine/NS 8 MG-250 ML 8 mg in 250 mls @ 3.75 mls/hr 04/26/21 16:00 05/04/21 21:34 Norepinephrine/Ns 8 Mg-250 Ml (Double Conc) IV 0 mcg/min TITRATE AZIZA 0 mls/hr Titration Protocol 2 MCG/MIN MEROPENEM/NS 1 GRAM/100 ML 1 gram in 100 mls @ 100 mls/hr 05/03/21 15:00 05/06/21 18:50 Merrem/Ns 1 Gram/100 Ml IV 05/08/21 15:59 100 mls/hr 1500 AZIZA Administration Protocol Sodium Chloride 100 mls @ 999 mls/hr 05/04/21 11:30 Nacl 0.9% IV MITCH PRN Hypotension Fluconazole 200 mg in 100 mls @ 100 mls/hr 05/05/21 15:00 05/07/21 15:53 Diflucan IV 05/09/21 15:59 100 mls/hr Q24H AZIZA Administration Protocol Sodium Chloride 100 mls @ 999 mls/hr 05/06/21 16:06 Nacl 0.9% IV MITCH PRN Hypotension Insulin Human Lispro 0 unit 04/25/21 18:00 05/07/21 12:47 Insulin Lispro 100 Unit/Ml SUB-Q Not Given Q6HR AZIZA Protocol Levothyroxine Sodium 50 mcg 05/03/21 06:00 05/07/21 06:10 Levothyroxine 50 Mcg Tab PO 50 mcg DAILY@0600 AZIZA Administration Lorazepam 1 mg 04/26/21 11:15 04/30/21 23:00 Lorazepam 2 Mg/Ml Vial IV 1 mg Q4H PRN Administration Sedation Metoclopramide HCl 5 mg 04/20/21 21:31 Metoclopramide 10 Mg/2 Ml Inj IV Q6H PRN Nausea And Vomiting Midodrine 10 mg 05/04/21 14:00 05/07/21 13:54 Midodrine 5 Mg Tab PO 10 mg TID AZIZA Administration Multi-Ingred Cream/Lotion/Oil/Oint 1 applic 04/26/21 11:16 Mineral Oil/Petrolatum, White Ophth Oint 3.5 Gm OU Q4HR PRN Dry Eye(s) Ondansetron HCl 4 mg 04/20/21 21:31 Ondansetron 4 Mg/2 Ml Inj IV Q8H PRN Nausea And Vomiting Senna/Docusate Sodium 1 tab 04/26/21 22:00 05/07/21 09:50 Sennosides/Docusate Sodium 8.6/50 Mg Tab FEEDTUBE 1 tab BID AZIZA Administration Simple Syrup 15 ml 04/25/21 14:13 Simple Syrup 15 Ml FEEDTUBE PRN PRN Hypoglycemia Simple Syrup 30 ml 04/25/21 14:13 Simple Syrup 15 Ml FEEDTUBE PRN PRN Hypoglycemia Sodium Bicarbonate 325 mg 04/25/21 14:13 04/27/21 13:00 Sodium Bicarbonate 325 Mg Tab FEEDTUBE 325 mg PRN PRN Administration For Clogged Feeding Tube Sodium Bicarbonate 1,300 mg 04/27/21 14:00 05/07/21 13:54 Sodium Bicarbonate 650 Mg Tab PO 1,300 mg TID AZIZA Administration Sodium Chloride 10 ml 04/20/21 22:00 05/07/21 09:07 Sodium Chloride 0.9% 10 Ml Flush Syringe IV 10 ml BID AZIZA Administration Sodium Chloride 10 ml 04/20/21 21:31 Sodium Chloride 0.9% 10 Ml Flush Syringe IV PRN PRN LINE FLUSH Nutrition/Malnutrition Assess - Dietary Evaluation Nutrition/Malnutrition Findings: Nutrition Notes Start: 04/21/21 12:15 Freq: Status: Active Protocol: Document 05/04/21 16:15 JOSE (Rec: 05/04/21 16:26 JOSE [id number]) Nutrition Notes Initial or Follow up Brief Note Current Diet TF-Nepro w/CARBSTEADY @ 32 ml/ hr (since 04/29). Height 5 ft 2 in Weight 72.4 kg [place] Body Weight (kg) 50.00 BMI 29.2 Weight change and time frame No body weight change reported . Weight Status Overweight Subjective/Other Information RD consult for routine F/U on TF tolerance. TF continues as prescribed, therefore, well tolerated. Percent of energy/protein needs met: Prescribed TF-Nepro w/ CARBSTEADY @ 32 ml/hr provides for energy/protein needs (1, 389 Kcal/63 g) during LOS, 100 % Kcal; 72% AA. Current % PO Other Minimum of two criteria No #1 Nutrition Diagnosis Inadequate oral intake Diagnosis Progress(for reassessment Continues documentation) Nutrition Intervention Nutrition Support: Continue TF to Nepro w/ CARBSTEADY @ 32 ml/hr. Flush: 140 ml water Q 4 hr, or as per MD. % RDI: 100% Kcal; 72% AA. Goal #1 Provide at least 75% of energy /protein needs through Enteral Feeding during LOS. Follow-Up By: 05/11/21 Additional Comments Continue monitoring TF tolerance and BM. <TACHO RUBALCAVA - Last Filed: 05/14/21 13:05> Assessment and Plan Assessment and plan: I saw and evaluated the patient. Discussed with the nurse practitioner and agree with their findings and plan as documented in this note. Hospitalist Physical - Constitutional Vitals: Temp Pulse Resp BP Pulse Ox 99.9 F H 102 H 23 108/55 100 05/14/21 11:22 05/14/21 12:31 05/14/21 12:31 05/14/21 12:31 05/14/21 12:31 HEART Score - HEART Score Troponin: Troponin T 0.021 ng/mL (0.00-0.029) 04/20/21 17:10 Results - Labs CBC & Chem 7: 05/14/21 04:43 05/14/21 04:43 Labs: Laboratory Last Values WBC 10.1 K/mm3 (4.5-11.0) 05/14/21 04:43 RBC 3.02 M/mm3 (3.65-5.03) L 05/14/21 04:43 Hgb 8.3 gm/dl (10.1-14.3) L 05/14/21 04:43 Hct 25.6 % (30.3-42.9) L 05/14/21 04:43 MCV 85 fl (79-97) 05/14/21 04:43 MCH 28 pg (28-32) 05/14/21 04:43 MCHC 33 % (30-34) 05/14/21 04:43 RDW 15.5 % (13.2-15.2) H 05/14/21 04:43 Plt Count 482 K/mm3 (140-440) H 05/14/21 04:43 Add Manual Diff Complete 04/28/21 04:00 Total Counted 100 04/28/21 04:00 Seg Neutrophils % Ob/Gyn Nurse 04/28/21 04:00 Seg Neuts % (Manual) 77.0 % (40.0-70.0) H 04/26/21 09:33 Band Neutrophils % 2.0 % 04/28/21 04:00 Lymphocytes % (Manual) 1.0 % (13.4-35.0) L 04/28/21 04:00 Reactive Lymphs % (Man) 0 % 04/28/21 04:00 Monocytes % (Manual) 1.0 % (0.0-7.3) 04/28/21 04:00 Eosinophils % (Manual) 3.0 % (0.0-4.3) 04/28/21 04:00 Metamyelocytes % 1.0 % 04/28/21 04:00 Myelocytes % 0 % 04/28/21 04:00 Promyelocytes % 0 % 04/28/21 04:00 Blast Cells % 0 % 04/28/21 04:00 Nucleated RBC % 4.0 % (0.0-0.9) H 04/28/21 04:00 Seg Neutrophils # Man 11.6 K/mm3 (1.8-7.7) H 04/28/21 04:00 Band Neutrophils # 0.3 K/mm3 04/28/21 04:00 Lymphocytes # (Manual) 0.1 K/mm3 (1.2-5.4) L 04/28/21 04:00 Abs React Lymphs (Man) 0.0 K/mm3 04/28/21 04:00 Monocytes # (Manual) 0.1 K/mm3 (0.0-0.8) 04/28/21 04:00 Eosinophils # (Manual) 0.4 K/mm3 (0.0-0.4) 04/28/21 04:00 Basophils # (Manual) 0.0 K/mm3 (0.0-0.1) 04/28/21 04:00 Metamyelocytes # 0.1 K/mm3 04/28/21 04:00 Myelocytes # 0.0 K/mm3 04/28/21 04:00 Promyelocytes # 0.0 K/mm3 04/28/21 04:00 Blast Cells # 0.0 K/mm3 04/28/21 04:00 WBC Morphology Not Reportable 04/28/21 04:00 Hypersegmented Neuts Not Reportable 04/28/21 04:00 Hyposegmented Neuts Not Reportable 04/28/21 04:00 Hypogranular Neuts Not Reportable 04/28/21 04:00 Smudge Cells Not Reportable 04/28/21 04:00 Toxic Granulation Not Reportable 04/28/21 04:00 Toxic Vacuolation Not Reportable 04/28/21 04:00 Dohle Bodies Not Reportable 04/28/21 04:00 Pelger-Huet Anomaly Not Reportable 04/28/21 04:00 Omni Rods Not Reportable 04/28/21 04:00 Platelet Estimate Consistent w auto 04/28/21 04:00 Clumped Platelets Not Reportable 04/28/21 04:00 Plt Clumps, EDTA Not Reportable 04/28/21 04:00 Large Platelets Few 04/28/21 04:00 Giant Platelets Not Reportable 04/28/21 04:00 Platelet Satelliting Not Reportable 04/28/21 04:00 Plt Morphology Comment Not Reportable 04/28/21 04:00 RBC Morphology Not Reportable 04/28/21 04:00 Dimorphic RBCs Not Reportable 04/28/21 04:00 Polychromasia Not Reportable 04/28/21 04:00 Hypochromasia Not Reportable 04/28/21 04:00 Poikilocytosis Not Reportable 04/28/21 04:00 Anisocytosis Not Reportable 04/28/21 04:00 Microcytosis Not Reportable 04/28/21 04:00 Macrocytosis Not Reportable 04/28/21 04:00 Spherocytes Not Reportable 04/28/21 04:00 Pappenheimer Bodies Not Reportable 04/28/21 04:00 Sickle Cells Not Reportable 04/28/21 04:00 Target Cells 1+ 04/28/21 04:00 Tear Drop Cells Not Reportable 04/28/21 04:00 Ovalocytes Not Reportable 04/28/21 04:00 Helmet Cells Not Reportable 04/28/21 04:00 Parkinson-[place] Bodies Not Reportable 04/28/21 04:00 [place] Rings Not Reportable 04/28/21 04:00 [place] Cells Not Reportable 04/28/21 04:00 Bite Cells Not Reportable 04/28/21 04:00 Crenated Cell Not Reportable 04/28/21 04:00 Elliptocytes Not Reportable 04/28/21 04:00 Acanthocytes (Spur) Not Reportable 04/28/21 04:00 Rouleaux Not Reportable 04/28/21 04:00 Hemoglobin C Crystals Not Reportable 04/28/21 04:00 Schistocytes Not Reportable 04/28/21 04:00 Malaria parasites Not Reportable 04/28/21 04:00 Herrera Bodies Not Reportable 04/28/21 04:00 Hem Pathologist Commnt No 04/28/21 04:00 PT 14.7 Sec. (12.2-14.9) 05/13/21 04:24 INR 1.04 (0.87-1.13) 05/13/21 04:24 APTT 36.6 Sec. (24.2-36.6) 04/28/21 05:00 Heparin Anti-Xa, Unfract Negative (Negative) 04/24/21 17:29 ABG pH 7.487 (7.320-7.450) H 05/02/21 04:34 POC ABG pCO2 35.3 mmHg (32.0-48.0) 05/02/21 04:34 ABG pCO2 31.6 mm Hg 04/21/21 15:47 POC ABG pO2 78.6 mmHg (83-108) L 05/02/21 04:34 ABG pO2 168.1 mm Hg (80.0-90.0) H 04/21/21 15:47 POC ABG HCO3 26.1 05/02/21 04:34 ABG HCO3 23.3 mmol/L (20.0-26.0) 04/21/21 15:47 ABG O2 Saturation 96.0 (0-100) 05/02/21 04:34 ABG O2 Content 12.7 (0.0-44) 04/21/21 15:47 POC ABG Base Excess 2.9 05/02/21 04:34 ABG Base Excess 0.3 mmol/L (-2.0-3.0) 04/21/21 15:47 ABG Hemoglobin 11.5 (12.0-17.5) L 05/02/21 04:34 ABG Oxyhemoglobin 95.1 (94-98) 05/02/21 04:34 ABG Carboxyhemoglobin 1.0 % (0.0-5.0) 04/21/21 15:47 ABG Methemoglobin 0.3 (0.0-1.5) 05/02/21 04:34 ABG Sodium 138.6 mmol/L (136.0-145.0) 05/02/21 04:34 ABG Potassium 3.4 mmol/L (3.40-4.50) 05/02/21 04:34 ABG Chloride 105.0 mmol/L (98-107) 05/02/21 04:34 ABG Glucose 122 mg/dL (65-95) H 05/02/21 04:34 VBG pH 7.397 (7.320-7.420) 04/20/21 17:10 Oxyhemoglobin 97.5 % (95.0-99.0) 04/21/21 15:47 Carboxyhemoglobin 0.6 (0.5-1.5) 05/02/21 04:34 FiO2 100 % 04/21/21 15:47 FiO2 % 40.0 05/02/21 04:34 Sodium 138 mmol/L (137-145) 05/14/21 04:43 Potassium 4.0 mmol/L (3.6-5.0) 05/14/21 04:43 Chloride 104.1 mmol/L (98-107) 05/14/21 04:43 Carbon Dioxide 23 mmol/L (22-30) 05/14/21 04:43 Anion Gap 15 mmol/L 05/14/21 04:43 BUN 29 mg/dL (7-17) H 05/14/21 04:43 Creatinine 1.2 mg/dL (0.6-1.2) 05/14/21 04:43 Estimated GFR 52 ml/min 05/14/21 04:43 BUN/Creatinine Ratio 24 % 05/14/21 04:43 Glucose 192 mg/dL (65-100) H 05/14/21 04:43 POC Glucose 215 mg/dL (70-105) H 05/14/21 10:59 Hemoglobin A1c 17.1 % (4-6) H 04/22/21 15:55 Lactic Acid 1.90 mmol/L (0.7-2.0) 04/20/21 19:56 Calcium 8.1 mg/dL (8.4-10.2) L 05/14/21 04:43 Phosphorus 3.20 mg/dL (2.5-4.5) 05/14/21 04:43 Magnesium 2.20 mg/dL (1.7-2.3) 05/14/21 04:43 Iron 62 ug/dL (37-170) 04/24/21 17:29 TIBC 285 mcg/dL (250-450) 04/24/21 17:29 % Saturation 21.75 % 04/24/21 17:29 Transferrin 112 mg/dl (192-382) L 04/24/21 17:29 Total Bilirubin 0.20 mg/dL (0.1-1.2) 05/03/21 04:00 Direct Bilirubin < 0.2 mg/dL (0-0.2) 04/29/21 04:00 Indirect Bilirubin 0.1 mg/dL 04/29/21 04:00 AST 53 units/L (5-40) H 05/03/21 04:00 ALT 55 units/L (7-56) 05/03/21 04:00 Alkaline Phosphatase 149 units/L (35-129) H 05/03/21 04:00 Ammonia 29.0 umol/L (25-60) 04/20/21 17:10 Total Creatine Kinase 1000 units/L (30-135) H 04/27/21 07:43 CK-MB (CK-2) 36.0 ng/mL (0.0-4.0) H 04/20/21 17:10 CK-MB (CK-2) Rel Index 0.9 (0-4) 04/20/21 17:10 Troponin T 0.021 ng/mL (0.00-0.029) 04/20/21 17:10 Serum Total Protein 5.5 g/dL (6.1-8.1) L 04/22/21 08:59 Total Protein 5.2 g/dL (6.3-8.2) L 05/03/21 04:00 Albumin 1.5 g/dL (3.9-5) L 05/03/21 04:00 Albumin/Globulin Ratio 0.4 % 05/03/21 04:00 Qwqml-6-Fqtmhraqu 0.6 g/dL (0.2-0.3) H 04/22/21 08:59 Corqm-4-Btsixogot 1.0 g/dL (0.5-0.9) H 04/22/21 08:59 Beta Globulins 0.3 g/dL (0.2-0.5) 04/22/21 08:59 Gamma Globulins 0.6 g/dL (0.8-1.7) L 04/22/21 08:59 Abnorm Protein Band 1 see below 04/22/21 08:59 PEP Interpretation see below H 04/22/21 08:59 Triglycerides 80 mg/dL (2-149) 05/04/21 04:48 Cholesterol 90 mg/dL (50-199) 05/04/21 04:48 LDL Cholesterol Direct 51 mg/dL (50-130) 05/04/21 04:48 HDL Cholesterol 24 mg/dL (40-59) L 05/04/21 04:48 Cholesterol/HDL Ratio 3.75 % 05/04/21 04:48 Serotonin Release Assay See scanned result 04/24/21 17:29 TSH 6.040 mlU/mL (0.270-4.200) H 04/20/21 17:10 Free T4 0.93 ng/dL (0.76-1.46) 04/20/21 17:10 Arterial Blood Glucose 122 mg/dL (65-95) H 05/02/21 04:34 Arterial Blood Ionized Calcium 4.5 mg/dL (4.6-5.3) L 04/28/21 05:18 Urine Color Yellow (Yellow) 04/29/21 13:30 Urine Turbidity Turbid (Clear) 04/29/21 13:30 Urine pH 5.0 (5.0-7.0) 04/29/21 13:30 Ur Specific [place] 1.010 (1.003-1.030) 04/29/21 13:30 Urine Protein 100 mg/dl mg/dL (Negative) 04/29/21 13:30 Urine Glucose (UA) 150 mg/dL (Negative) 04/29/21 13:30 Urine Ketones Neg mg/dL (Negative) 04/29/21 13:30 Urine Blood Lg (Negative) 04/29/21 13:30 Urine Nitrite Neg (Negative) 04/29/21 13:30 Urine Bilirubin Neg (Negative) 04/29/21 13:30 Urine Urobilinogen < 2.0 mg/dL (<2.0) 04/29/21 13:30 Ur Leukocyte Esterase Lg (Negative) 04/29/21 13:30 Urine WBC (Auto) > 182.0 /HPF (0.0-6.0) H 04/29/21 13:30 Urine RBC (Auto) > 182.0 /HPF (0.0-6.0) 04/29/21 13:30 U Epithel Cells (Auto) 4.0 /HPF (0-13.0) 04/29/21 13:30 Urine WBC Clumps 3+ /HPF 04/29/21 13:30 Urine Mucus Few /HPF 04/29/21 13:30 Urine Yeast (Budding) 3+ /HPF 04/29/21 13:30 Urine Osmolality 446 Mosm/kg 04/21/21 08:01 Urine Total Volume 1700 ml 05/08/21 09:34 Urine Creatinine 56.0 mg/dL (0.1-20.0) H 05/08/21 09:34 Ur Creatinine 24 Hour 1.0 (0.8-2.8) 05/08/21 09:34 Urine Sodium 71 mmol/L 04/21/21 08:01 Urine Total Protein 12 mg/dL (5-11.8) H 04/21/21 08:01 CSF Appearance Clear 04/29/21 11:45 CSF Color Colorless 04/29/21 11:45 CSF WBC 14 /mm3 (1-10) 04/29/21 11:45 CSF RBC 324 /mm3 (0-0) 04/29/21 11:45 CSF Seg Neutrophils 50.0 % (0-6) 04/29/21 11:45 CSF Lymphocytes % 40.0 % (40-80) 04/29/21 11:45 CSF Reactive Lymphs Not Reportable 04/29/21 11:45 CSF Monocytes % 10.0 % (15-45) 04/29/21 11:45 CSF Eosinophils % Not Reportable 04/29/21 11:45 CSF Basophils Not Reportable 04/29/21 11:45 CSF Pathologist Review C 04/29/21 11:45 CSF Glucose 161 mg/dL 04/29/21 11:45 CSF Total Protein 51 mg/dL 04/29/21 11:45 Plasma/Serum Alcohol < 0.01 % (0-0.07) 04/20/21 17:10 Heparin-induced Plt Ab Negative (Negative) 04/24/21 17:29 UF Heparin High Dose 1 % Release 04/24/21 17:29 EFE UFH Low Dose 0.1 0 % Release 04/24/21 17:29 EFE UFH Low Dose 0.5 0 % Release 04/24/21 17:29 Coronavirus (PCR) Negative (Negative) 04/21/21 Unknown Hepatitis A IgM Ab Non-reactive (NonReactive) 04/27/21 12:49 Hep Bs Antigen Nonreactive (Negative) 04/27/21 12:49 Hep B Core IgM Ab Non-reactive (NonReactive) 04/27/21 12:49 Hepatitis C Antibody Non-reactive (NonReactive) 04/27/21 12:49 Blood Type O POSITIVE 05/02/21 12:00 Antibody Screen Negative 05/02/21 12:00 Crossmatch See Detail 05/02/21 12:00 Microbiology: Microbiology 05/02/21 Unknown Urine,Catheterized - Indwelling Catheter Urine Culture - Final Roselyn Tropicalis Luther/IV: Voiding Method Indwelling Catheter Active Medications - Current Medications Current Medications: Generic Name Dose Route Start Last Admin Trade Name Freq PRN Reason Stop Dose Admin Acetaminophen 650 mg 04/20/21 21:31 05/14/21 09:50 Acetaminophen 325 Mg Tab PO 650 mg Q4H PRN Administration Pain MILD(1-3)/Fever >100.5/TURCIOS Albumin Human 25 gm 05/06/21 16:06 05/06/21 16:21 Albumin Human 25% (25 Gm/100 Ml) Inj IV 25 gm MITCH PRN Administration Hypotension Albuterol 2.5 mg 04/22/21 14:49 04/23/21 15:18 Albuterol 2.5 Mg/3 Ml Nebu IH 2.5 mg Q4HRT PRN Administration Shortness Of Breath Amlodipine Besylate 5 mg 05/12/21 10:00 05/14/21 09:49 Amlodipine 5 Mg Tab PO 5 mg QDAY AZIZA Administration Lipase/Protease/Amylase 1 each 04/25/21 14:13 Lipase 10,500/Protease 25,000/Amylase 43,750 (Units) Dr Vasquez FEEDTUBE PRN PRN For Clogged Feeding Tube Aspirin 81 mg 05/04/21 10:00 05/14/21 09:50 Aspirin 81 Mg Tab Chew FEEDTUBE 81 mg QDAY AZIZA Administration Atorvastatin Calcium 40 mg 05/04/21 22:00 05/13/21 21:39 Atorvastatin 40 Mg Tab FEEDTUBE 40 mg QHS AZIZA Administration Dextrose 50 ml 04/24/21 11:36 Dextrose 50% In Water (25gm) 50 Ml Syringe IV Q30MIN PRN Hypoglycemia Protocol Famotidine 10 mg 04/27/21 10:00 05/14/21 09:50 Famotidine 10 Mg Tab FEEDTUBE 10 mg BID AZIZA Administration Heparin Sodium (Porcine) 5,000 unit 05/10/21 22:00 05/14/21 09:50 Heparin 5,000 Unit/1 Ml Vial SUB-Q 5,000 unit Q12HR AZIZA Administration Hydrophilic Ointment 1 applic 04/26/21 11:16 Lip Therapy Vaseline TP Q2HR PRN Dry Lips Sodium Chloride 1,000 mls @ 100 mls/hr 05/14/21 08:30 05/14/21 09:53 Nacl 0.9% 1000 Ml IV 05/14/21 18:29 100 mls/hr DIRECT AZIZA Administration Insulin Human Lispro 0 unit 04/25/21 18:00 05/14/21 12:05 Insulin Lispro 100 Unit/Ml SUB-Q 4 unit Q6HR AZIZA Administration Protocol Labetalol HCl 20 mg 05/12/21 11:34 05/12/21 21:35 Labetalol 20 Mg/4 Ml Inj IV 20 mg Q4H PRN Administration SBP >/=170 Levothyroxine Sodium 50 mcg 05/03/21 06:00 05/14/21 05:27 Levothyroxine 50 Mcg Tab PO 50 mcg DAILY@0600 AZIZA Administration Lorazepam 1 mg 04/26/21 11:15 05/12/21 16:27 Lorazepam 2 Mg/Ml Vial IV 1 mg Q4H PRN Administration Sedation Metoclopramide HCl 5 mg 04/20/21 21:31 Metoclopramide 10 Mg/2 Ml Inj IV Q6H PRN Nausea And Vomiting Multi-Ingred Cream/Lotion/Oil/Oint 1 applic 04/26/21 11:16 Mineral Oil/Petrolatum, White Ophth Oint 3.5 Gm OU Q4HR PRN Dry Eye(s) Ondansetron HCl 4 mg 04/20/21 21:31 Ondansetron 4 Mg/2 Ml Inj IV Q8H PRN Nausea And Vomiting Senna/Docusate Sodium 1 tab 04/26/21 22:00 05/14/21 09:50 Sennosides/Docusate Sodium 8.6/50 Mg Tab FEEDTUBE 1 tab BID AZIZA Administration Simple Syrup 15 ml 04/25/21 14:13 Simple Syrup 15 Ml FEEDTUBE PRN PRN Hypoglycemia Simple Syrup 30 ml 04/25/21 14:13 Simple Syrup 15 Ml FEEDTUBE PRN PRN Hypoglycemia Sodium Bicarbonate 325 mg 04/25/21 14:13 04/27/21 13:00 Sodium Bicarbonate 325 Mg Tab FEEDTUBE 325 mg PRN PRN Administration For Clogged Feeding Tube Sodium Bicarbonate 1,300 mg 04/27/21 14:00 05/14/21 08:48 Sodium Bicarbonate 650 Mg Tab PO 1,300 mg TID AZIZA Administration Sodium Chloride 10 ml 04/20/21 22:00 05/14/21 09:51 Sodium Chloride 0.9% 10 Ml Flush Syringe IV 10 ml BID AZIZA Administration Sodium Chloride 10 ml 04/20/21 21:31 Sodium Chloride 0.9% 10 Ml Flush Syringe IV PRN PRN LINE FLUSH Nutrition/Malnutrition Assess - Dietary Evaluation Nutrition/Malnutrition Findings: Nutrition Notes Start: 04/21/21 12:15 Freq: Status: Active Protocol: Document 05/13/21 15:36 TAMMY (Rec: 05/13/21 15:47 [facility] [id number]) Nutrition Notes Initial or Follow up Reassessment Current Diagnosis Sepsis,Respiratory Failure, Stroke Other Pertinent Diagnosis Acute metabolic encephalopathy , pneu, UTI Current Diet NPO Labs/Tests BUN 30 Mg 1.6 Pertinent Medications Mag sulfate x 1 dose Height 5 ft 2 in Weight 72.4 kg [place] Body Weight (kg) 50.00 BMI 29.2 Weight Status Overweight Subjective/Other Information Pt remains on vent support. TF off; pt scheduled for trach and PEG placement today. Unable to place PEG sec to suspected anatomical abnormality. Interventional radiology consulted for PEG placement. Per nephrology, SYED resolving; no indication for HD as VasCath has been removed. Minimum of two criteria No #1 Nutrition Diagnosis Inadequate oral intake Diagnosis Progress(for reassessment Continues documentation) Is patient on ventilator? Yes Is Patient Ambulatory and/or Out of Bed No REE-([facility]-confined to bed) [phone] Calculation Used for Recommendations [facility] Additional Notes Pro needs 1.2-2g/k-145g/ day Fluid needs 1ml/kcal Nutrition Intervention Nutrition Support: When feasible, resume TF, but change formula to Glucerna 1.2 at 50ml/hr with 80ml water flush q4h. Goal #1 Resume TF to meet nutrient needs Follow-Up By: 05/16/21 Additional Comments F/U: PEG placement, TF restart with Glucerna 1.2, vent status
[2021-05-08] MEDS: INSULIN LISPRO 100 UNIT/ML SUB-Q SCH ×4 (01:24→18:50)
[2021-05-08 05:33] LABS: Hematocrit 25.5 % (30.3-42.9); Hemoglobin 8.2 gm/dl (10.1-14.3); Mean Corpuscular HGB Conc 32 % (30-34); Mean Corpuscular Volume 85 fl (79-97); Platelet Count 360 K/mm3 (140-440); Red Blood Count 3.01 M/mm3 (3.65-5.03); Red Cell Distribution Width 15.4 % (13.2-15.2)
[2021-05-08 05:48] LABS: Calcium 8.3 mg/dL (8.4-10.2)
[2021-05-08] MEDS: LEVOTHYROXINE 50 MCG TAB PO SCH (05:51)
[2021-05-08] MEDS: SODIUM BICARBONATE 650 MG TAB PO SCH ×3 (08:59→21:22)
[2021-05-08] MEDS ORDERED: POTASSIUM CHLORIDE 20 MEQ PACKET FEEDTUBE SCH (09:00)
[2021-05-08] MEDS ORDERED: MAGNESIUM SULFATE 2 GM/50 ML BAG IV ONE (09:00)
[2021-05-08] MEDS: FAMOTIDINE 10 MG TAB FEEDTUBE SCH ×2 (09:14→21:22)
[2021-05-08] MEDS: ASPIRIN 81 MG TAB CHEW FEEDTUBE SCH (09:14)
[2021-05-08] MEDS: SENNOSIDES/DOCUSATE SODIUM 8.6/50 MG TAB FEEDTUBE SCH ×2 (09:14→21:22)
--- NOTE | 2021-05-08 09:35 | Progress Note ---
Assessment and Plan (1) Acute metabolic encephalopathy (2) Diabetic hyperosmolar non-ketotic state 3) SYED (acute kidney injury) (4) Dehydration (5) Hypernatremia (6) Rhabdomyolysis (7) Hypernatremia 8) GERD (gastroesophageal reflux disease) (9) Metabolic acidosis (10) Leukocytosis no indication for HD today will check 24 hours creatinine clearance will assess dialysis needs daily renally dose meds Strict I&O In ICU Subjective Date of service: 05/08/21 Principal diagnosis: Acute respiratory failure Interval history: no overnight events, intubated Objective - Vital Signs Vital signs: Vital Signs - 12hr 05/07/21 05/07/21 05/07/21 22:00 22:31 22:35 Temperature Pulse Rate 83 88 81 Pulse Rate [ From Monitor] Respiratory 14 22 22 Rate Blood Pressure 140/65 155/74 155/74 O2 Sat by Pulse 98 99 98 Oximetry 05/07/21 05/07/21 05/07/21 23:01 23:31 23:55 Temperature Pulse Rate 93 H 91 H 79 Pulse Rate [ From Monitor] Respiratory 19 14 Rate Blood Pressure 155/74 138/67 138/67 O2 Sat by Pulse 99 99 99 Oximetry 05/08/21 05/08/21 05/08/21 00:00 00:30 01:00 Temperature 97.8 F Pulse Rate 81 82 84 Pulse Rate [ 81 From Monitor] Respiratory 15 22 25 H Rate Blood Pressure 132/62 140/65 136/69 O2 Sat by Pulse 99 99 98 Oximetry 05/08/21 05/08/21 05/08/21 01:30 02:00 02:30 Temperature Pulse Rate 77 82 90 Pulse Rate [ From Monitor] Respiratory 14 16 29 H Rate Blood Pressure 125/59 143/65 139/72 O2 Sat by Pulse 98 98 99 Oximetry 05/08/21 05/08/21 05/08/21 03:00 03:12 03:30 Temperature Pulse Rate 86 89 87 Pulse Rate [ From Monitor] Respiratory 17 24 Rate Blood Pressure 144/65 144/65 135/71 O2 Sat by Pulse 98 98 98 Oximetry 05/08/21 05/08/21 05/08/21 03:56 04:00 04:30 Temperature 99.2 F Pulse Rate 75 86 Pulse Rate [ 76 From Monitor] Respiratory 14 22 Rate Blood Pressure 124/56 130/71 O2 Sat by Pulse 97 98 Oximetry 05/08/21 05/08/21 05/08/21 05:00 05:30 06:00 Temperature Pulse Rate 83 85 87 Pulse Rate [ From Monitor] Respiratory 21 19 14 Rate Blood Pressure 137/65 146/68 150/77 O2 Sat by Pulse 99 99 98 Oximetry 05/08/21 05/08/21 05/08/21 06:30 07:00 07:30 Temperature Pulse Rate 87 79 82 Pulse Rate [ From Monitor] Respiratory 16 27 H 23 Rate Blood Pressure 153/80 142/71 137/68 O2 Sat by Pulse 99 99 99 Oximetry 05/08/21 08:00 Temperature Pulse Rate 77 Pulse Rate [ 82 From Monitor] Respiratory 15 Rate Blood Pressure 142/61 O2 Sat by Pulse 99 Oximetry - General Appearance General appearance: intubated EENT: ATNC, PERRL, mucous membranes dry Neck: no JVD, no carotid bruit Respiratory: Present: Decreased Breath Sounds Cardiology: regular, tachycardia Gastrointestinal: normoactive bowel sounds, no tenderness, no distended, no masses Integumentary: no rash Neurologic: other (intubated) Musculoskeletal: other (edema in BLE) - Lab 05/08/21 05:12 05/08/21 05:12 Most recent lab results ABG pH 7.487 (7.320-7.450) H 05/02/21 04:34 ABG pCO2 31.6 mm Hg 04/21/21 15:47 ABG pO2 168.1 mm Hg (80.0-90.0) H 04/21/21 15:47 ABG HCO3 23.3 mmol/L (20.0-26.0) 04/21/21 15:47 ABG O2 Saturation 96.0 (0-100) 05/02/21 04:34 Calcium 8.3 mg/dL (8.4-10.2) L 05/08/21 05:12 Phosphorus 3.00 mg/dL (2.5-4.5) 05/08/21 05:12 Magnesium 1.70 mg/dL (1.7-2.3) 05/08/21 05:12 Urine Creatinine 44.3 mg/dL (0.1-20.0) H 04/21/21 08:01 Urine Sodium 71 mmol/L 04/21/21 08:01 Urine Total Protein 12 mg/dL (5-11.8) H 04/21/21 08:01 Medications & Allergies - Medications Allergies/Adverse Reactions: Allergies No Known Allergies Allergy (Unverified 04/20/21 14:35) Active Medications: Generic Name Dose Route Start Last Admin Trade Name Freq PRN Reason Stop Dose Admin Acetaminophen 650 mg 04/20/21 21:31 05/01/21 18:15 Acetaminophen 325 Mg Tab PO 650 mg Q4H PRN Administration Pain MILD(1-3)/Fever >100.5/TURCIOS Albumin Human 25 gm 05/06/21 16:06 05/06/21 16:21 Albumin Human 25% (25 Gm/100 Ml) Inj IV 25 gm MICTH PRN Administration Hypotension Albuterol 2.5 mg 04/22/21 14:49 04/23/21 15:18 Albuterol 2.5 Mg/3 Ml Nebu IH 2.5 mg Q4HRT PRN Administration Shortness Of Breath Lipase/Protease/Amylase 1 each 04/25/21 14:13 Lipase 10,500/Protease 25,000/Amylase 43,750 (Units) Dr Vasquez FEEDTUBE PRN PRN For Clogged Feeding Tube Aspirin 81 mg 05/04/21 10:00 05/08/21 09:14 Aspirin 81 Mg Tab Chew FEEDTUBE 81 mg QDAY AZIZA Administration Atorvastatin Calcium 40 mg 05/04/21 22:00 05/07/21 21:35 Atorvastatin 40 Mg Tab FEEDTUBE 40 mg QHS AZIZA Administration Dextrose 50 ml 04/24/21 11:36 Dextrose 50% In Water (25gm) 50 Ml Syringe IV Q30MIN PRN Hypoglycemia Protocol Famotidine 10 mg 04/27/21 10:00 05/08/21 09:14 Famotidine 10 Mg Tab FEEDTUBE 10 mg BID AZIZA Administration Hydralazine HCl 10 mg 04/24/21 21:22 Hydralazine 20 Mg/1 Ml Inj IV Q4HR PRN elevated BP Hydrophilic Ointment 1 applic 04/26/21 11:16 Lip Therapy Vaseline TP Q2HR PRN Dry Lips NORepinephrine/NS 8 MG-250 ML 8 mg in 250 mls @ 3.75 mls/hr 04/26/21 16:00 05/04/21 21:34 Norepinephrine/Ns 8 Mg-250 Ml (Double Conc) IV 0 mcg/min TITRATE AZIZA 0 mls/hr Titration Protocol 2 MCG/MIN MEROPENEM/NS 1 GRAM/100 ML 1 gram in 100 mls @ 100 mls/hr 05/03/21 15:00 05/07/21 15:44 Merrem/Ns 1 Gram/100 Ml IV 05/08/21 15:59 100 mls/hr 1500 [facility] Administration Protocol Sodium Chloride 100 mls @ 999 mls/hr 05/04/21 11:30 Nacl 0.9% IV MITCH PRN Hypotension Fluconazole 200 mg in 100 mls @ 100 mls/hr 05/05/21 15:00 05/07/21 15:53 Diflucan IV 05/09/21 15:59 100 mls/hr Q24H [facility] Administration Protocol Sodium Chloride 100 mls @ 999 mls/hr 05/06/21 16:06 Nacl 0.9% IV MITCH PRN Hypotension Magnesium Sulfate 2 gm in 50 mls @ 25 mls/hr 05/08/21 09:00 05/08/21 09:14 Magnesium Sulfate 2gm/50ml IV 05/08/21 10:59 25 mls/hr ONCE ONE Administration Insulin Human Lispro 0 unit 04/25/21 18:00 05/08/21 05:29 Insulin Lispro 100 Unit/Ml SUB-Q Not Given Q6HR [facility] Protocol Levothyroxine Sodium 50 mcg 05/03/21 06:00 05/08/21 05:51 Levothyroxine 50 Mcg Tab PO 50 mcg DAILY@0600 [facility] Administration Lorazepam 1 mg 04/26/21 11:15 04/30/21 23:00 Lorazepam 2 Mg/Ml Vial IV 1 mg Q4H PRN Administration Sedation Metoclopramide HCl 5 mg 04/20/21 21:31 Metoclopramide 10 Mg/2 Ml Inj IV Q6H PRN Nausea And Vomiting Midodrine 5 mg 05/08/21 09:00 Midodrine 5 Mg Tab PO TID@0800,1200,1600 [facility] Multi-Ingred Cream/Lotion/Oil/Oint 1 applic 04/26/21 11:16 Mineral Oil/Petrolatum, White Ophth Oint 3.5 Gm OU Q4HR PRN Dry Eye(s) Ondansetron HCl 4 mg 04/20/21 21:31 Ondansetron 4 Mg/2 Ml Inj IV Q8H PRN Nausea And Vomiting Potassium Chloride 20 meq 05/08/21 09:00 05/08/21 09:14 Potassium Chloride 20 Meq Packet FEEDTUBE 05/08/21 13:00 20 meq ONCE@0900 [facility] Administration Senna/Docusate Sodium 1 tab 04/26/21 22:00 05/08/21 09:14 Sennosides/Docusate Sodium 8.6/50 Mg Tab FEEDTUBE 1 tab BID [facility] Administration Simple Syrup 15 ml 04/25/21 14:13 Simple Syrup 15 Ml FEEDTUBE PRN PRN Hypoglycemia Simple Syrup 30 ml 04/25/21 14:13 Simple Syrup 15 Ml FEEDTUBE PRN PRN Hypoglycemia Sodium Bicarbonate 325 mg 04/25/21 14:13 04/27/21 13:00 Sodium Bicarbonate 325 Mg Tab FEEDTUBE 325 mg PRN PRN Administration For Clogged Feeding Tube Sodium Bicarbonate 1,300 mg 04/27/21 14:00 05/08/21 08:59 Sodium Bicarbonate 650 Mg Tab PO 1,300 mg TID [facility] Administration Sodium Chloride 10 ml 04/20/21 22:00 05/08/21 09:15 Sodium Chloride 0.9% 10 Ml Flush Syringe IV 10 ml BID [facility] Administration Sodium Chloride 10 ml 04/20/21 21:31 Sodium Chloride 0.9% 10 Ml Flush Syringe IV PRN PRN LINE FLUSH
[2021-05-08] MEDS: MIDODRINE 5 MG TAB PO SCH ×3 (09:47→16:05)
--- NOTE | 2021-05-08 10:21 | Progress Note ---
Assessment and Plan 80 y/o female with altered mental state, severe electrolyte imbalance with presumptive acute renal failure and hypothermia. 05/07/21: Continue supportive measures. HD per renal. Follow up neuro recs tomorrow. Need to start talking with family about next steps but need neuro input. 05/06/21: Await neurology recs now that LINCOLN Could not be done. Based on neurology note, no direct source for stroke on MRA. Patient was seen on this d ay and can be confirmed by staff. Not sure why my note did not save. 05/05/21: follow up neurology notes. They are discussing with cards the LINCOLN. Continue vent support. Poor prognosis. 05/04/21: follow up MRA when done. LINCOLN pending. HD per renal. Daily PSV trials as tolerated. Poor prognosis given MRI findings and lack of responsiveness off sedation. 05/03/21: Follow up Neurology recs for today. Attempt PSV trials. HD on yesterday. Very very guarded prognosis. 05/02/21: MRI today. Repeat cultures. HD per renal. Once MRI results back will discuss with Neurosurgery to see if anything further should be done. Abx per ID. Overall prognosis is very guarded to poor. 04/29/21: Will reach out to neuro after 24-48 hours post spinal tap pending any change in mentation. If improvement, may need to consider shunt placement. If not, not sure that there is anything they can offer. if they still want MRI, then can obtain. Now spiking temps. Blood cultures and UA. Given time frame in Hospital will place on Vanc and Cefepime. Guarded prognosis. HD per renal. Given anasarca, will ask renal about trying to remove volume. 04/28/21: Will discuss with renal about HD again today. MRI vs LP (large amount). Coags are ok. Will attempt to get at least one of these done today. Patient is still on 80% but sat is 100. Will ask [employer] about placing ART line today. Wean FiO2 as tolerated. Guarded prognosis. 04/27/21: HD today per renal. Vascath placed and awaiting CXR for conformation of good placement (done and good). Vent weaning as tolerated for sats >88%. ABG in the AM. Will check Coags in the am and hopeful these are stable. Platelets need to above 50K. Would like to do large volume spinal tap to see if this helps with mentation. Will also obtain MRI once oxygen requirement improves. 04/26/21: WIll electively intubate and then obtain MRI. Pending MRI results, will likely order large volume spinal tap to assess if NPH is a factor or not. Guarded prognosis. Electrolytes are improving. 04/25/21: Continue to follow renal recs. Will reach out to POA either today or tomorrow for further updates. Follow up renal recs. Monitor electrolytes and renal function. Guarded prognosis. 1. Neuro-reached out to neuro surgery, placed consult in regards to CT findings 2. Renal-appreciate help and recs, will follow IV hydration recommendations 3. Blood cultures. Urine was negative 4. Jorge Hugger for temp Guarded prognosis CCT 31 minutes. Subjective Date of service: 05/08/21 Principal diagnosis: Acute respiratory failure Interval history: No acute events. Objective Vital Signs - 12hr 05/07/21 05/07/21 05/07/21 22:31 22:35 23:01 Temperature Pulse Rate 88 81 93 H Pulse Rate [ From Monitor] Respiratory 22 22 19 Rate Blood Pressure 155/74 155/74 155/74 O2 Sat by Pulse 99 98 99 Oximetry 05/07/21 05/07/21 05/08/21 23:31 23:55 00:00 Temperature 97.8 F Pulse Rate 91 H 79 81 Pulse Rate [ 81 From Monitor] Respiratory 14 15 Rate Blood Pressure 138/67 138/67 132/62 O2 Sat by Pulse 99 99 99 Oximetry 05/08/21 05/08/21 05/08/21 00:30 01:00 01:30 Temperature Pulse Rate 82 84 77 Pulse Rate [ From Monitor] Respiratory 22 25 H 14 Rate Blood Pressure 140/65 136/69 125/59 O2 Sat by Pulse 99 98 98 Oximetry 05/08/21 05/08/21 05/08/21 02:00 02:30 03:00 Temperature Pulse Rate 82 90 86 Pulse Rate [ From Monitor] Respiratory 16 29 H 17 Rate Blood Pressure 143/65 139/72 144/65 O2 Sat by Pulse 98 99 98 Oximetry 05/08/21 05/08/21 05/08/21 03:12 03:30 03:56 Temperature 99.2 F Pulse Rate 89 87 Pulse Rate [ From Monitor] Respiratory 24 Rate Blood Pressure 144/65 135/71 O2 Sat by Pulse 98 98 Oximetry 05/08/21 05/08/21 05/08/21 04:00 04:30 05:00 Temperature Pulse Rate 75 86 83 Pulse Rate [ 76 From Monitor] Respiratory 14 22 21 Rate Blood Pressure 124/56 130/71 137/65 O2 Sat by Pulse 97 98 99 Oximetry 05/08/21 05/08/21 05/08/21 05:30 06:00 06:30 Temperature Pulse Rate 85 87 87 Pulse Rate [ From Monitor] Respiratory 19 14 16 Rate Blood Pressure 146/68 150/77 153/80 O2 Sat by Pulse 99 98 99 Oximetry 05/08/21 05/08/21 05/08/21 07:00 07:30 08:00 Temperature 99.0 F Pulse Rate 79 82 77 Pulse Rate [ 82 From Monitor] Respiratory 27 H 23 15 Rate Blood Pressure 142/71 137/68 142/61 O2 Sat by Pulse 99 99 99 Oximetry 05/08/21 08:30 Temperature Pulse Rate 83 Pulse Rate [ From Monitor] Respiratory Rate Blood Pressure 147/65 O2 Sat by Pulse 99 Oximetry Constitutional: other (critically ill, somnolent, on vent) Eyes: non-icteric ENT: oropharynx dry Effort: other (tachypneic but not labored) Ascultation: Bilateral: clear Cardiovascular: regular rate and rhythm Gastrointestinal: normoactive bowel sounds Integumentary: normal Extremities: no cyanosis, no edema, pink and warm Neurologic: unable to assess Psychiatric: other (unable to assess) CBC and BMP: 05/08/21 05:12 05/08/21 05:12 ABG, PT/INR, D-dimer: ABG ABG pH 7.487 (7.320-7.450) H 05/02/21 04:34 POC ABG pCO2 35.3 mmHg (32.0-48.0) 05/02/21 04:34 ABG pCO2 31.6 mm Hg 04/21/21 15:47 POC ABG pO2 78.6 mmHg (83-108) L 05/02/21 04:34 ABG pO2 168.1 mm Hg (80.0-90.0) H 04/21/21 15:47 POC ABG HCO3 26.1 05/02/21 04:34 ABG O2 Saturation 96.0 (0-100) 05/02/21 04:34 PT/INR, D-dimer PT 15.3 Sec. (12.2-14.9) H 04/28/21 05:00 INR 1.09 (0.87-1.13) 04/28/21 05:00 Abnormal lab findings: Abnormal Labs 04/20/21 04/20/21 04/20/21 17:10 17:10 17:10 WBC 17.4 H RBC 5.19 H Hgb Hct 46.8 H MCH 27 L RDW 17.2 H Plt Count Seg Neuts % (Manual) 98.0 H Lymphocytes % (Manual) 2.0 L Nucleated RBC % 1.0 H Seg Neutrophils # Man 17.1 H Lymphocytes # (Manual) 0.3 L PT ABG pH POC ABG pCO2 POC ABG pO2 ABG pO2 ABG O2 Saturation ABG Base Excess ABG Hemoglobin ABG Oxyhemoglobin ABG Potassium ABG Chloride ABG Glucose Oxyhemoglobin Carboxyhemoglobin Sodium 173 H* Potassium Chloride 132.9 H Carbon Dioxide 17 L BUN 120 H Creatinine 4.2 H Glucose 762 H* POC Glucose Hemoglobin A1c Lactic Acid Calcium Phosphorus Magnesium 3.80 H Transferrin AST 72 H ALT 63 H Alkaline Phosphatase 148 H Total Creatine Kinase 3697 H CK-MB (CK-2) 36.0 H Serum Total Protein Total Protein Albumin 2.2 L Ddnsy-2-Zmsshzmph Whhdz-8-Futrggdmq Gamma Globulins PEP Interpretation HDL Cholesterol TSH Arterial Blood Glucose Arterial Blood Ionized Calcium Urine WBC (Auto) Urine Creatinine Urine Total Protein Crossmatch 04/20/21 04/20/21 04/20/21 17:10 17:10 18:55 WBC RBC Hgb Hct MCH RDW Plt Count Seg Neuts % (Manual) Lymphocytes % (Manual) Nucleated RBC % Seg Neutrophils # Man Lymphocytes # (Manual) PT ABG pH POC ABG pCO2 POC ABG pO2 ABG pO2 ABG O2 Saturation ABG Base Excess ABG Hemoglobin ABG Oxyhemoglobin ABG Potassium ABG Chloride ABG Glucose Oxyhemoglobin Carboxyhemoglobin Sodium Potassium Chloride Carbon Dioxide BUN Creatinine Glucose POC Glucose 574 H Hemoglobin A1c Lactic Acid 2.60 H* Calcium Phosphorus Magnesium Transferrin AST ALT Alkaline Phosphatase Total Creatine Kinase CK-MB (CK-2) Serum Total Protein Total Protein Albumin Xkmjj-6-Tzwyzsiou Bqkqe-7-Bxpaebvsy Gamma Globulins PEP Interpretation HDL Cholesterol TSH 6.040 H Arterial Blood Glucose Arterial Blood Ionized Calcium Urine WBC (Auto) Urine Creatinine Urine Total Protein Crossmatch 04/20/21 04/20/21 04/20/21 22:12 22:58 22:58 WBC RBC Hgb Hct MCH RDW Plt Count Seg Neuts % (Manual) Lymphocytes % (Manual) Nucleated RBC % Seg Neutrophils # Man Lymphocytes # (Manual) PT ABG pH POC ABG pCO2 POC ABG pO2 ABG pO2 ABG O2 Saturation ABG Base Excess ABG Hemoglobin ABG Oxyhemoglobin ABG Potassium ABG Chloride ABG Glucose Oxyhemoglobin Carboxyhemoglobin Sodium 172 H* Potassium 3.2 L Chloride 134.2 H Carbon Dioxide 17 L BUN 112 H Creatinine 3.8 H Glucose 803 H* POC Glucose 554 H Hemoglobin A1c Lactic Acid Calcium 8.3 L Phosphorus Magnesium 3.50 H Transferrin AST ALT Alkaline Phosphatase Total Creatine Kinase CK-MB (CK-2) Serum Total Protein Total Protein Albumin Kylks-8-Gjayhvhtd Ylioc-3-Klgpijlpa Gamma Globulins PEP Interpretation HDL Cholesterol TSH Arterial Blood Glucose Arterial Blood Ionized Calcium Urine WBC (Auto) Urine Creatinine Urine Total Protein Crossmatch 04/21/21 04/21/21 04/21/21 00:14 00:22 02:01 WBC RBC Hgb Hct MCH RDW Plt Count Seg Neuts % (Manual) Lymphocytes % (Manual) Nucleated RBC % Seg Neutrophils # Man Lymphocytes # (Manual) PT ABG pH POC ABG pCO2 POC ABG pO2 ABG pO2 ABG O2 Saturation ABG Base Excess ABG Hemoglobin ABG Oxyhemoglobin ABG Potassium ABG Chloride ABG Glucose Oxyhemoglobin Carboxyhemoglobin Sodium 176 H* 175 H* Potassium 2.9 L* 3.0 L Chloride 139.9 H 136.2 H Carbon Dioxide 17 L 19 L BUN 113 H 112 H Creatinine 3.9 H 3.6 H Glucose 729 H* 582 H* POC Glucose > 600 H Hemoglobin A1c Lactic Acid Calcium Phosphorus Magnesium Transferrin AST ALT Alkaline Phosphatase Total Creatine Kinase CK-MB (CK-2) Serum Total Protein Total Protein Albumin Vciux-8-Sulhvrprx Zruea-0-Xcuwkvhmd Gamma Globulins PEP Interpretation HDL Cholesterol TSH Arterial Blood Glucose Arterial Blood Ionized Calcium Urine WBC (Auto) Urine Creatinine Urine Total Protein Crossmatch 04/21/21 04/21/21 04/21/21 03:11 03:20 03:41 WBC 14.1 H RBC Hgb Hct MCH 27 L RDW 16.8 H Plt Count 114 L Seg Neuts % (Manual) 97.0 H Lymphocytes % (Manual) 3.0 L Nucleated RBC % 1.0 H Seg Neutrophils # Man 13.7 H Lymphocytes # (Manual) 0.4 L PT ABG pH POC ABG pCO2 POC ABG pO2 ABG pO2 52.3 L ABG O2 Saturation 84.5 L ABG Base Excess -2.9 L ABG Hemoglobin ABG Oxyhemoglobin ABG Potassium ABG Chloride ABG Glucose Oxyhemoglobin 82.9 L Carboxyhemoglobin Sodium Potassium Chloride Carbon Dioxide BUN Creatinine Glucose POC Glucose 404 H Hemoglobin A1c Lactic Acid Calcium Phosphorus Magnesium Transferrin AST ALT Alkaline Phosphatase Total Creatine Kinase CK-MB (CK-2) Serum Total Protein Total Protein Albumin Arpsb-6-Ibcffofhn Rdjce-6-Jmtfibisx Gamma Globulins PEP Interpretation HDL Cholesterol TSH Arterial Blood Glucose Arterial Blood Ionized Calcium Urine WBC (Auto) Urine Creatinine Urine Total Protein Crossmatch 04/21/21 04/21/21 04/21/21 03:41 04:24 05:45 WBC RBC Hgb Hct MCH RDW Plt Count Seg Neuts % (Manual) Lymphocytes % (Manual) Nucleated RBC % Seg Neutrophils # Man Lymphocytes # (Manual) PT ABG pH POC ABG pCO2 POC ABG pO2 ABG pO2 ABG O2 Saturation ABG Base Excess ABG Hemoglobin ABG Oxyhemoglobin ABG Potassium ABG Chloride ABG Glucose Oxyhemoglobin Carboxyhemoglobin Sodium 179 H* Potassium 2.9 L* Chloride 138.2 H Carbon Dioxide 20 L BUN 111 H Creatinine 3.7 H Glucose 465 H POC Glucose 353 H 280 H Hemoglobin A1c Lactic Acid Calcium Phosphorus Magnesium Transferrin AST 73 H ALT 61 H Alkaline Phosphatase 144 H Total Creatine Kinase CK-MB (CK-2) Serum Total Protein Total Protein Albumin 2.5 L Yluim-7-Cbmfrszjv Xblwu-6-Wmzwozunn Gamma Globulins PEP Interpretation HDL Cholesterol TSH Arterial Blood Glucose Arterial Blood Ionized Calcium Urine WBC (Auto) Urine Creatinine Urine Total Protein Crossmatch 04/21/21 04/21/21 04/21/21 06:47 08:01 11:11 WBC RBC Hgb Hct MCH RDW Plt Count Seg Neuts % (Manual) Lymphocytes % (Manual) Nucleated RBC % Seg Neutrophils # Man Lymphocytes # (Manual) PT ABG pH POC ABG pCO2 POC ABG pO2 ABG pO2 ABG O2 Saturation ABG Base Excess ABG Hemoglobin ABG Oxyhemoglobin ABG Potassium ABG Chloride ABG Glucose Oxyhemoglobin Carboxyhemoglobin Sodium Potassium Chloride Carbon Dioxide BUN Creatinine Glucose POC Glucose 260 H 68 L Hemoglobin A1c Lactic Acid Calcium Phosphorus Magnesium Transferrin AST ALT Alkaline Phosphatase Total Creatine Kinase CK-MB (CK-2) Serum Total Protein Total Protein Albumin Jsfpd-8-Ifitgjmmv Saxxz-5-Mazhxjzor Gamma Globulins PEP Interpretation HDL Cholesterol TSH Arterial Blood Glucose Arterial Blood Ionized Calcium Urine WBC (Auto) Urine Creatinine 44.3 H Urine Total Protein 12 H Crossmatch 04/21/21 04/21/21 04/21/21 12:51 13:41 14:40 WBC RBC Hgb Hct MCH RDW Plt Count Seg Neuts % (Manual) Lymphocytes % (Manual) Nucleated RBC % Seg Neutrophils # Man Lymphocytes # (Manual) PT ABG pH 7.275 L POC ABG pCO2 POC ABG pO2 63.4 L ABG pO2 ABG O2 Saturation ABG Base Excess ABG Hemoglobin 8.4 L ABG Oxyhemoglobin 89.5 L ABG Potassium ABG Chloride 108.0 H ABG Glucose 404 H Oxyhemoglobin Carboxyhemoglobin Sodium Potassium Chloride Carbon Dioxide BUN Creatinine Glucose POC Glucose 146 H 186 H Hemoglobin A1c Lactic Acid Calcium Phosphorus Magnesium Transferrin AST ALT Alkaline Phosphatase Total Creatine Kinase CK-MB (CK-2) Serum Total Protein Total Protein Albumin Bkjko-9-Cmjycvvad Ftzje-6-Zyeywjyob Gamma Globulins PEP Interpretation HDL Cholesterol TSH Arterial Blood Glucose 404 H Arterial Blood Ionized Calcium Urine WBC (Auto) Urine Creatinine Urine Total Protein Crossmatch 04/21/21 04/21/21 04/21/21 15:47 16:25 17:57 WBC RBC Hgb Hct MCH RDW Plt Count Seg Neuts % (Manual) Lymphocytes % (Manual) Nucleated RBC % Seg Neutrophils # Man Lymphocytes # (Manual) PT ABG pH 7.486 H POC ABG pCO2 POC ABG pO2 ABG pO2 168.1 H ABG O2 Saturation 99.1 H ABG Base Excess ABG Hemoglobin 8.9 L ABG Oxyhemoglobin ABG Potassium ABG Chloride ABG Glucose Oxyhemoglobin Carboxyhemoglobin Sodium Potassium Chloride Carbon Dioxide BUN Creatinine Glucose POC Glucose 172 H 143 H Hemoglobin A1c Lactic Acid Calcium Phosphorus Magnesium Transferrin AST ALT Alkaline Phosphatase Total Creatine Kinase CK-MB (CK-2) Serum Total Protein Total Protein Albumin Cyhpu-5-Tdstqrprf Pavjs-9-Knubramnh Gamma Globulins PEP Interpretation HDL Cholesterol TSH Arterial Blood Glucose Arterial Blood Ionized Calcium Urine WBC (Auto) Urine Creatinine Urine Total Protein Crossmatch 04/21/21 04/21/21 04/21/21 18:49 19:10 20:26 WBC RBC Hgb Hct MCH RDW Plt Count Seg Neuts % (Manual) Lymphocytes % (Manual) Nucleated RBC % Seg Neutrophils # Man Lymphocytes # (Manual) PT ABG pH POC ABG pCO2 POC ABG pO2 ABG pO2 ABG O2 Saturation ABG Base Excess ABG Hemoglobin ABG Oxyhemoglobin ABG Potassium ABG Chloride ABG Glucose Oxyhemoglobin Carboxyhemoglobin Sodium 174 H* Potassium 7.2 H* D Chloride 138.2 H Carbon Dioxide 21 L BUN 99 H Creatinine 4.0 H Glucose 157 H POC Glucose 126 H 190 H Hemoglobin A1c Lactic Acid Calcium Phosphorus Magnesium Transferrin AST 134 H ALT 71 H Alkaline Phosphatase 135 H Total Creatine Kinase 3504 H CK-MB (CK-2) Serum Total Protein Total Protein Albumin 2.2 L Fizth-9-Veqmfruwf Mrfow-9-Oiahmlykp Gamma Globulins PEP Interpretation HDL Cholesterol TSH Arterial Blood Glucose Arterial Blood Ionized Calcium Urine WBC (Auto) Urine Creatinine Urine Total Protein Crossmatch 04/21/21 04/21/21 04/21/21 20:53 21:52 22:55 WBC RBC Hgb Hct MCH RDW Plt Count Seg Neuts % (Manual) Lymphocytes % (Manual) Nucleated RBC % Seg Neutrophils # Man Lymphocytes # (Manual) PT ABG pH POC ABG pCO2 POC ABG pO2 ABG pO2 ABG O2 Saturation ABG Base Excess ABG Hemoglobin ABG Oxyhemoglobin ABG Potassium ABG Chloride ABG Glucose Oxyhemoglobin Carboxyhemoglobin Sodium Potassium Chloride Carbon Dioxide BUN Creatinine Glucose POC Glucose 116 H 135 H 158 H Hemoglobin A1c Lactic Acid Calcium Phosphorus Magnesium Transferrin AST ALT Alkaline Phosphatase Total Creatine Kinase CK-MB (CK-2) Serum Total Protein Total Protein Albumin Hvyry-8-Ontrlnznw Hkcof-8-Snmsmfqaq Gamma Globulins PEP Interpretation HDL Cholesterol TSH Arterial Blood Glucose Arterial Blood Ionized Calcium Urine WBC (Auto) Urine Creatinine Urine Total Protein Crossmatch 04/21/21 04/22/21 04/22/21 23:00 00:01 00:39 WBC RBC Hgb Hct MCH RDW Plt Count Seg Neuts % (Manual) Lymphocytes % (Manual) Nucleated RBC % Seg Neutrophils # Man Lymphocytes # (Manual) PT ABG pH POC ABG pCO2 POC ABG pO2 ABG pO2 ABG O2 Saturation ABG Base Excess ABG Hemoglobin ABG Oxyhemoglobin ABG Potassium ABG Chloride ABG Glucose Oxyhemoglobin Carboxyhemoglobin Sodium 176 H* 171 H* Potassium Chloride 140.0 H Carbon Dioxide 20 L BUN 98 H Creatinine 3.9 H Glucose 206 H POC Glucose 182 H Hemoglobin A1c Lactic Acid Calcium Phosphorus Magnesium Transferrin AST ALT Alkaline Phosphatase Total Creatine Kinase 3240 H CK-MB (CK-2) Serum Total Protein Total Protein Albumin Lgyhd-5-Fnlbckphv Xcimo-8-Rqxcadhbe Gamma Globulins PEP Interpretation HDL Cholesterol TSH Arterial Blood Glucose Arterial Blood Ionized Calcium Urine WBC (Auto) Urine Creatinine Urine Total Protein Crossmatch 04/22/21 04/22/21 04/22/21 00:58 01:04 04:52 WBC 11.2 H RBC Hgb Hct 44.3 H MCH 27 L RDW 17.1 H Plt Count 86 L Seg Neuts % (Manual) 86.0 H Lymphocytes % (Manual) 13.0 L Nucleated RBC % Seg Neutrophils # Delbert 9.6 H Lymphocytes # (Manual) PT ABG pH POC ABG pCO2 POC ABG pO2 ABG pO2 ABG O2 Saturation ABG Base Excess ABG Hemoglobin ABG Oxyhemoglobin ABG Potassium ABG Chloride ABG Glucose Oxyhemoglobin Carboxyhemoglobin Sodium Potassium Chloride Carbon Dioxide BUN Creatinine Glucose POC Glucose 176 H 143 H Hemoglobin A1c Lactic Acid Calcium Phosphorus Magnesium Transferrin AST ALT Alkaline Phosphatase Total Creatine Kinase CK-MB (CK-2) Serum Total Protein Total Protein Albumin Ohljz-8-Qljcnselk Otgcv-6-Tocbztuty Gamma Globulins PEP Interpretation HDL Cholesterol TSH Arterial Blood Glucose Arterial Blood Ionized Calcium Urine WBC (Auto) Urine Creatinine Urine Total Protein Crossmatch 04/22/21 04/22/21 04/22/21 06:07 06:09 07:18 WBC RBC Hgb Hct MCH RDW Plt Count Seg Neuts % (Manual) Lymphocytes % (Manual) Nucleated RBC % Seg Neutrophils # Delbert Lymphocytes # (Manual) PT ABG pH POC ABG pCO2 POC ABG pO2 ABG pO2 ABG O2 Saturation ABG Base Excess ABG Hemoglobin ABG Oxyhemoglobin ABG Potassium ABG Chloride ABG Glucose Oxyhemoglobin Carboxyhemoglobin Sodium Potassium Chloride Carbon Dioxide BUN Creatinine Glucose POC Glucose 206 H 163 H 158 H Hemoglobin A1c Lactic Acid Calcium Phosphorus Magnesium Transferrin AST ALT Alkaline Phosphatase Total Creatine Kinase CK-MB (CK-2) Serum Total Protein Total Protein Albumin Nkvbf-5-Xyocrmeov Qdytc-0-Ggrdhvulz Gamma Globulins PEP Interpretation HDL Cholesterol TSH Arterial Blood Glucose Arterial Blood Ionized Calcium Urine WBC (Auto) Urine Creatinine Urine Total Protein Crossmatch 04/22/21 04/22/21 04/22/21 08:59 08:59 08:59 WBC RBC Hgb Hct MCH RDW Plt Count Seg Neuts % (Manual) Lymphocytes % (Manual) Nucleated RBC % Seg Neutrophils # Man Lymphocytes # (Manual) PT ABG pH POC ABG pCO2 POC ABG pO2 ABG pO2 ABG O2 Saturation ABG Base Excess ABG Hemoglobin ABG Oxyhemoglobin ABG Potassium ABG Chloride ABG Glucose Oxyhemoglobin Carboxyhemoglobin Sodium 169 H* Potassium 3.5 L Chloride 134.5 H Carbon Dioxide 20 L BUN 95 H Creatinine 3.6 H Glucose 151 H POC Glucose Hemoglobin A1c Lactic Acid Calcium Phosphorus Magnesium Transferrin AST 121 H ALT 75 H Alkaline Phosphatase 137 H Total Creatine Kinase 3105 H CK-MB (CK-2) Serum Total Protein 5.5 L Total Protein 6.0 L Albumin 2.8 L 2.1 L Isdoo-1-Cxbfwlsuc 0.6 H Qpesh-8-Juvfuigdv 1.0 H Gamma Globulins 0.6 L PEP Interpretation see below H HDL Cholesterol TSH Arterial Blood Glucose Arterial Blood Ionized Calcium Urine WBC (Auto) Urine Creatinine Urine Total Protein Crossmatch 04/22/21 04/22/21 04/22/21 09:44 10:24 12:20 WBC RBC Hgb Hct MCH RDW Plt Count Seg Neuts % (Manual) Lymphocytes % (Manual) Nucleated RBC % Seg Neutrophils # Man Lymphocytes # (Manual) PT ABG pH POC ABG pCO2 POC ABG pO2 ABG pO2 ABG O2 Saturation ABG Base Excess ABG Hemoglobin ABG Oxyhemoglobin ABG Potassium ABG Chloride ABG Glucose Oxyhemoglobin Carboxyhemoglobin Sodium Potassium Chloride Carbon Dioxide BUN Creatinine Glucose POC Glucose 107 H 131 H Hemoglobin A1c Lactic Acid Calcium Phosphorus Magnesium 2.80 H Transferrin AST ALT Alkaline Phosphatase Total Creatine Kinase CK-MB (CK-2) Serum Total Protein Total Protein Albumin Ujnxa-1-Ipyvrckhy Dtlpz-1-Xotiuqunc Gamma Globulins PEP Interpretation HDL Cholesterol TSH Arterial Blood Glucose Arterial Blood Ionized Calcium Urine WBC (Auto) Urine Creatinine Urine Total Protein Crossmatch 04/22/21 04/22/2121 13:19 14:16 15:22 WBC RBC Hgb Hct MCH RDW Plt Count Seg Neuts % (Manual) Lymphocytes % (Manual) Nucleated RBC % Seg Neutrophils # Man Lymphocytes # (Manual) PT ABG pH POC ABG pCO2 POC ABG pO2 ABG pO2 ABG O2 Saturation ABG Base Excess ABG Hemoglobin ABG Oxyhemoglobin ABG Potassium ABG Chloride ABG Glucose Oxyhemoglobin Carboxyhemoglobin Sodium Potassium Chloride Carbon Dioxide BUN Creatinine Glucose POC Glucose 147 H 154 H 136 H Hemoglobin A1c Lactic Acid Calcium Phosphorus Magnesium Transferrin AST ALT Alkaline Phosphatase Total Creatine Kinase CK-MB (CK-2) Serum Total Protein Total Protein Albumin Uryis-5-Zzfahwtrr Ebbjd-2-Zshdupnkk Gamma Globulins PEP Interpretation HDL Cholesterol TSH Arterial Blood Glucose Arterial Blood Ionized Calcium Urine WBC (Auto) Urine Creatinine Urine Total Protein Crossmatch 04/22/21 04/22/21 04/22/21 15:55 15:55 16:22 WBC RBC Hgb Hct MCH RDW Plt Count Seg Neuts % (Manual) Lymphocytes % (Manual) Nucleated RBC % Seg Neutrophils # Man Lymphocytes # (Manual) PT ABG pH POC ABG pCO2 POC ABG pO2 ABG pO2 ABG O2 Saturation ABG Base Excess ABG Hemoglobin ABG Oxyhemoglobin ABG Potassium ABG Chloride ABG Glucose Oxyhemoglobin Carboxyhemoglobin Sodium 169 H* Potassium Chloride 133.5 H Carbon Dioxide 19 L BUN 94 H Creatinine 3.8 H Glucose 150 H POC Glucose 140 H Hemoglobin A1c 17.1 H Lactic Acid Calcium Phosphorus Magnesium Transferrin AST ALT Alkaline Phosphatase Total Creatine Kinase CK-MB (CK-2) Serum Total Protein Total Protein Albumin Ogmln-6-Lovoagelj Eychd-0-Qdrgdwilo Gamma Globulins PEP Interpretation HDL Cholesterol TSH Arterial Blood Glucose Arterial Blood Ionized Calcium Urine WBC (Auto) Urine Creatinine Urine Total Protein Crossmatch 04/22/21 04/22/21 04/22/21 18:11 18:26 23:19 WBC RBC Hgb Hct MCH RDW Plt Count Seg Neuts % (Manual) Lymphocytes % (Manual) Nucleated RBC % Seg Neutrophils # Man Lymphocytes # (Manual) PT ABG pH POC ABG pCO2 POC ABG pO2 ABG pO2 ABG O2 Saturation ABG Base Excess ABG Hemoglobin ABG Oxyhemoglobin ABG Potassium ABG Chloride ABG Glucose Oxyhemoglobin Carboxyhemoglobin Sodium Potassium Chloride Carbon Dioxide BUN Creatinine Glucose POC Glucose 146 H 188 H Hemoglobin A1c Lactic Acid Calcium Phosphorus Magnesium Transferrin AST ALT Alkaline Phosphatase Total Creatine Kinase 2497 H CK-MB (CK-2) Serum Total Protein Total Protein Albumin Hatqe-5-Jofyxcqpd Jsfkj-1-Jkzflxymi Gamma Globulins PEP Interpretation HDL Cholesterol TSH Arterial Blood Glucose Arterial Blood Ionized Calcium Urine WBC (Auto) Urine Creatinine Urine Total Protein Crossmatch 04/23/21 04/23/21 04/23/21 00:27 05:23 07:50 WBC RBC Hgb Hct MCH RDW Plt Count Seg Neuts % (Manual) Lymphocytes % (Manual) Nucleated RBC % Seg Neutrophils # Man Lymphocytes # (Manual) PT ABG pH POC ABG pCO2 POC ABG pO2 ABG pO2 ABG O2 Saturation ABG Base Excess ABG Hemoglobin ABG Oxyhemoglobin ABG Potassium ABG Chloride ABG Glucose Oxyhemoglobin Carboxyhemoglobin Sodium 162 H* Potassium Chloride Carbon Dioxide BUN Creatinine Glucose POC Glucose 212 H 239 H Hemoglobin A1c Lactic Acid Calcium Phosphorus Magnesium Transferrin AST ALT Alkaline Phosphatase Total Creatine Kinase CK-MB (CK-2) Serum Total Protein Total Protein Albumin Ewcew-4-Blfpdfqtn Bqzrn-7-Ciplqqavf Gamma Globulins PEP Interpretation HDL Cholesterol TSH Arterial Blood Glucose Arterial Blood Ionized Calcium Urine WBC (Auto) Urine Creatinine Urine Total Protein Crossmatch 04/23/21 04/23/21 04/23/21 08:13 08:13 08:13 WBC 11.9 H RBC Hgb Hct MCH 26 L RDW 16.5 H Plt Count 72 L Seg Neuts % (Manual) 80.0 H Lymphocytes % (Manual) 5.0 L Nucleated RBC % Seg Neutrophils # Man 9.5 H Lymphocytes # (Manual) 0.6 L PT ABG pH POC ABG pCO2 POC ABG pO2 ABG pO2 ABG O2 Saturation ABG Base Excess ABG Hemoglobin ABG Oxyhemoglobin ABG Potassium ABG Chloride ABG Glucose Oxyhemoglobin Carboxyhemoglobin Sodium 164 H* Potassium Chloride 128.0 H Carbon Dioxide 21 L BUN 93 H Creatinine 3.8 H Glucose 293 H POC Glucose Hemoglobin A1c Lactic Acid Calcium Phosphorus Magnesium Transferrin AST 99 H ALT 70 H Alkaline Phosphatase 147 H Total Creatine Kinase 1803 H CK-MB (CK-2) Serum Total Protein Total Protein 6.1 L Albumin 2.0 L Ducgp-9-Zwudgajoi Vjjyw-6-Kpryfsxne Gamma Globulins PEP Interpretation HDL Cholesterol TSH Arterial Blood Glucose Arterial Blood Ionized Calcium Urine WBC (Auto) Urine Creatinine Urine Total Protein Crossmatch 04/23/21 04/23/21 04/23/21 12:06 17:35 18:17 WBC RBC Hgb Hct MCH RDW Plt Count Seg Neuts % (Manual) Lymphocytes % (Manual) Nucleated RBC % Seg Neutrophils # Man Lymphocytes # (Manual) PT ABG pH POC ABG pCO2 POC ABG pO2 ABG pO2 ABG O2 Saturation ABG Base Excess ABG Hemoglobin ABG Oxyhemoglobin ABG Potassium ABG Chloride ABG Glucose Oxyhemoglobin Carboxyhemoglobin Sodium 160 H Potassium Chloride Carbon Dioxide BUN Creatinine Glucose POC Glucose 311 H 370 H Hemoglobin A1c Lactic Acid Calcium Phosphorus Magnesium Transferrin AST ALT Alkaline Phosphatase Total Creatine Kinase CK-MB (CK-2) Serum Total Protein Total Protein Albumin Rgyfn-5-Ocxevndel Rdsyy-0-Xilpmoqlg Gamma Globulins PEP Interpretation HDL Cholesterol TSH Arterial Blood Glucose Arterial Blood Ionized Calcium Urine WBC (Auto) Urine Creatinine Urine Total Protein Crossmatch 04/24/21 04/24/21 04/24/21 02:13 06:00 06:00 WBC RBC Hgb Hct MCH 27 L RDW 17.0 H Plt Count 58 L Seg Neuts % (Manual) Lymphocytes % (Manual) 2.0 L Nucleated RBC % Seg Neutrophils # Man 8.9 H Lymphocytes # (Manual) 0.2 L PT ABG pH POC ABG pCO2 POC ABG pO2 ABG pO2 ABG O2 Saturation ABG Base Excess ABG Hemoglobin ABG Oxyhemoglobin ABG Potassium ABG Chloride ABG Glucose Oxyhemoglobin Carboxyhemoglobin Sodium 160 H Potassium Chloride Carbon Dioxide BUN Creatinine Glucose POC Glucose Hemoglobin A1c Lactic Acid Calcium Phosphorus Magnesium 2.90 H Transferrin AST ALT Alkaline Phosphatase Total Creatine Kinase CK-MB (CK-2) Serum Total Protein Total Protein Albumin Kmrwo-1-Logctstlq Mxbln-5-Kdnvcapco Gamma Globulins PEP Interpretation HDL Cholesterol TSH Arterial Blood Glucose Arterial Blood Ionized Calcium Urine WBC (Auto) Urine Creatinine Urine Total Protein Crossmatch 04/24/21 04/24/21 04/24/21 07:46 08:15 11:34 WBC RBC Hgb Hct MCH RDW Plt Count Seg Neuts % (Manual) Lymphocytes % (Manual) Nucleated RBC % Seg Neutrophils # Man Lymphocytes # (Manual) PT ABG pH POC ABG pCO2 POC ABG pO2 ABG pO2 ABG O2 Saturation ABG Base Excess ABG Hemoglobin ABG Oxyhemoglobin ABG Potassium ABG Chloride ABG Glucose Oxyhemoglobin Carboxyhemoglobin Sodium 159 H Potassium Chloride 125.6 H Carbon Dioxide 19 L BUN 94 H Creatinine 3.7 H Glucose 514 H* POC Glucose 395 H 422 H Hemoglobin A1c Lactic Acid Calcium Phosphorus Magnesium Transferrin AST ALT 61 H Alkaline Phosphatase 155 H Total Creatine Kinase CK-MB (CK-2) Serum Total Protein Total Protein 6.1 L Albumin 1.5 L Pgbbf-9-Llhcowfpt Wowyp-5-Lfbwzsmmh Gamma Globulins PEP Interpretation HDL Cholesterol TSH Arterial Blood Glucose Arterial Blood Ionized Calcium Urine WBC (Auto) Urine Creatinine Urine Total Protein Crossmatch 04/24/21 04/24/21 04/24/21 13:11 14:01 15:03 WBC RBC Hgb Hct MCH RDW Plt Count Seg Neuts % (Manual) Lymphocytes % (Manual) Nucleated RBC % Seg Neutrophils # Man Lymphocytes # (Manual) PT ABG pH POC ABG pCO2 POC ABG pO2 ABG pO2 ABG O2 Saturation ABG Base Excess ABG Hemoglobin ABG Oxyhemoglobin ABG Potassium ABG Chloride ABG Glucose Oxyhemoglobin Carboxyhemoglobin Sodium Potassium Chloride Carbon Dioxide BUN Creatinine Glucose POC Glucose 384 H 423 H 418 H Hemoglobin A1c Lactic Acid Calcium Phosphorus Magnesium Transferrin AST ALT Alkaline Phosphatase Total Creatine Kinase CK-MB (CK-2) Serum Total Protein Total Protein Albumin Vhhai-4-Wxonhhdla Xdfvw-7-Wxkojxryx Gamma Globulins PEP Interpretation HDL Cholesterol TSH Arterial Blood Glucose Arterial Blood Ionized Calcium Urine WBC (Auto) Urine Creatinine Urine Total Protein Crossmatch 04/24/21 04/24/21 04/24/21 17:29 18:28 19:41 WBC RBC Hgb Hct MCH RDW Plt Count Seg Neuts % (Manual) Lymphocytes % (Manual) Nucleated RBC % Seg Neutrophils # Man Lymphocytes # (Manual) PT ABG pH POC ABG pCO2 POC ABG pO2 ABG pO2 ABG O2 Saturation ABG Base Excess ABG Hemoglobin ABG Oxyhemoglobin ABG Potassium ABG Chloride ABG Glucose Oxyhemoglobin Carboxyhemoglobin Sodium Potassium Chloride Carbon Dioxide BUN Creatinine Glucose POC Glucose 335 H 321 H Hemoglobin A1c Lactic Acid Calcium Phosphorus Magnesium Transferrin 112 L AST ALT Alkaline Phosphatase Total Creatine Kinase CK-MB (CK-2) Serum Total Protein Total Protein Albumin Syjvd-4-Szxgrdxus Pfwuz-1-Gxoanqdsp Gamma Globulins PEP Interpretation HDL Cholesterol TSH Arterial Blood Glucose Arterial Blood Ionized Calcium Urine WBC (Auto) Urine Creatinine Urine Total Protein Crossmatch 04/24/21 04/25/21 04/25/21 22:33 01:28 02:28 WBC RBC Hgb Hct MCH RDW Plt Count Seg Neuts % (Manual) Lymphocytes % (Manual) Nucleated RBC % Seg Neutrophils # Man Lymphocytes # (Manual) PT ABG pH POC ABG pCO2 POC ABG pO2 ABG pO2 ABG O2 Saturation ABG Base Excess ABG Hemoglobin ABG Oxyhemoglobin ABG Potassium ABG Chloride ABG Glucose Oxyhemoglobin Carboxyhemoglobin Sodium Potassium Chloride Carbon Dioxide BUN Creatinine Glucose POC Glucose 349 H 283 H 247 H Hemoglobin A1c Lactic Acid Calcium Phosphorus Magnesium Transferrin AST ALT Alkaline Phosphatase Total Creatine Kinase CK-MB (CK-2) Serum Total Protein Total Protein Albumin Nuuxt-5-Htjzeylhk Xfkng-5-Fsuxirqfm Gamma Globulins PEP Interpretation HDL Cholesterol TSH Arterial Blood Glucose Arterial Blood Ionized Calcium Urine WBC (Auto) Urine Creatinine Urine Total Protein Crossmatch 04/25/21 04/25/21 04/25/21 03:25 04:22 05:40 WBC RBC Hgb Hct MCH RDW Plt Count Seg Neuts % (Manual) Lymphocytes % (Manual) Nucleated RBC % Seg Neutrophils # Man Lymphocytes # (Manual) PT ABG pH POC ABG pCO2 POC ABG pO2 ABG pO2 ABG O2 Saturation ABG Base Excess ABG Hemoglobin ABG Oxyhemoglobin ABG Potassium ABG Chloride ABG Glucose Oxyhemoglobin Carboxyhemoglobin Sodium Potassium Chloride Carbon Dioxide BUN Creatinine Glucose POC Glucose 196 H 207 H 204 H Hemoglobin A1c Lactic Acid Calcium Phosphorus Magnesium Transferrin AST ALT Alkaline Phosphatase Total Creatine Kinase CK-MB (CK-2) Serum Total Protein Total Protein Albumin Vailj-1-Lxmosuqre Wlvmk-8-Uzngfwisl Gamma Globulins PEP Interpretation HDL Cholesterol TSH Arterial Blood Glucose Arterial Blood Ionized Calcium Urine WBC (Auto) Urine Creatinine Urine Total Protein Crossmatch 04/25/21 04/25/21 04/25/21 05:45 06:43 07:37 WBC RBC Hgb Hct MCH 27 L RDW 17.0 H Plt Count 64 L Seg Neuts % (Manual) 84.0 H Lymphocytes % (Manual) 6.0 L Nucleated RBC % 1.0 H Seg Neutrophils # Man Lymphocytes # (Manual) 0.4 L PT ABG pH POC ABG pCO2 POC ABG pO2 ABG pO2 ABG O2 Saturation ABG Base Excess ABG Hemoglobin ABG Oxyhemoglobin ABG Potassium ABG Chloride ABG Glucose Oxyhemoglobin Carboxyhemoglobin Sodium Potassium Chloride Carbon Dioxide BUN Creatinine Glucose POC Glucose 238 H 201 H Hemoglobin A1c Lactic Acid Calcium Phosphorus Magnesium Transferrin AST ALT Alkaline Phosphatase Total Creatine Kinase CK-MB (CK-2) Serum Total Protein Total Protein Albumin Yabyj-9-Bjhorscgv Qyska-4-Hcjcsyecs Gamma Globulins PEP Interpretation HDL Cholesterol TSH Arterial Blood Glucose Arterial Blood Ionized Calcium Urine WBC (Auto) Urine Creatinine Urine Total Protein Crossmatch 04/25/21 04/25/21 04/25/21 08:11 08:11 08:41 WBC RBC Hgb Hct MCH RDW Plt Count Seg Neuts % (Manual) Lymphocytes % (Manual) Nucleated RBC % Seg Neutrophils # Man Lymphocytes # (Manual) PT ABG pH POC ABG pCO2 POC ABG pO2 ABG pO2 ABG O2 Saturation ABG Base Excess ABG Hemoglobin ABG Oxyhemoglobin ABG Potassium ABG Chloride ABG Glucose Oxyhemoglobin Carboxyhemoglobin Sodium 148 H D Potassium Chloride 115.7 H Carbon Dioxide 21 L BUN 83 H Creatinine 3.6 H Glucose 247 H POC Glucose 220 H Hemoglobin A1c Lactic Acid Calcium Phosphorus Magnesium 2.50 H Transferrin AST 63 H ALT 62 H Alkaline Phosphatase 143 H Total Creatine Kinase CK-MB (CK-2) Serum Total Protein Total Protein 5.4 L Albumin 1.4 L Jnefm-9-Vjhstzfkf Btipk-2-Dnorolgbk Gamma Globulins PEP Interpretation HDL Cholesterol TSH Arterial Blood Glucose Arterial Blood Ionized Calcium Urine WBC (Auto) Urine Creatinine Urine Total Protein Crossmatch 04/25/21 04/25/21 04/25/21 09:22 10:31 11:44 WBC RBC Hgb Hct MCH RDW Plt Count Seg Neuts % (Manual) Lymphocytes % (Manual) Nucleated RBC % Seg Neutrophils # Man Lymphocytes # (Manual) PT ABG pH POC ABG pCO2 POC ABG pO2 ABG pO2 ABG O2 Saturation ABG Base Excess ABG Hemoglobin ABG Oxyhemoglobin ABG Potassium ABG Chloride ABG Glucose Oxyhemoglobin Carboxyhemoglobin Sodium Potassium Chloride Carbon Dioxide BUN Creatinine Glucose POC Glucose 228 H 215 H 191 H Hemoglobin A1c Lactic Acid Calcium Phosphorus Magnesium Transferrin AST ALT Alkaline Phosphatase Total Creatine Kinase CK-MB (CK-2) Serum Total Protein Total Protein Albumin Okbmi-0-Lksqkpwtc Htlde-9-Hwbuzpnlc Gamma Globulins PEP Interpretation HDL Cholesterol TSH Arterial Blood Glucose Arterial Blood Ionized Calcium Urine WBC (Auto) Urine Creatinine Urine Total Protein Crossmatch 04/25/21 04/25/21 04/25/21 12:23 13:48 14:11 WBC RBC Hgb Hct MCH RDW Plt Count Seg Neuts % (Manual) Lymphocytes % (Manual) Nucleated RBC % Seg Neutrophils # Man Lymphocytes # (Manual) PT ABG pH POC ABG pCO2 POC ABG pO2 ABG pO2 ABG O2 Saturation ABG Base Excess ABG Hemoglobin ABG Oxyhemoglobin ABG Potassium ABG Chloride ABG Glucose Oxyhemoglobin Carboxyhemoglobin Sodium Potassium Chloride Carbon Dioxide BUN Creatinine Glucose POC Glucose 229 H 177 H 161 H Hemoglobin A1c Lactic Acid Calcium Phosphorus Magnesium Transferrin AST ALT Alkaline Phosphatase Total Creatine Kinase CK-MB (CK-2) Serum Total Protein Total Protein Albumin Uzitr-7-Ceegwzguj Dlqhg-9-Ivsqnefru Gamma Globulins PEP Interpretation HDL Cholesterol TSH Arterial Blood Glucose Arterial Blood Ionized Calcium Urine WBC (Auto) Urine Creatinine Urine Total Protein Crossmatch 04/25/21 04/25/21 04/26/21 18:01 21:31 01:19 WBC RBC Hgb Hct MCH RDW Plt Count Seg Neuts % (Manual) Lymphocytes % (Manual) Nucleated RBC % Seg Neutrophils # Man Lymphocytes # (Manual) PT ABG pH POC ABG pCO2 POC ABG pO2 ABG pO2 ABG O2 Saturation ABG Base Excess ABG Hemoglobin ABG Oxyhemoglobin ABG Potassium ABG Chloride ABG Glucose Oxyhemoglobin Carboxyhemoglobin Sodium Potassium Chloride Carbon Dioxide BUN Creatinine Glucose POC Glucose 264 H 371 H 356 H Hemoglobin A1c Lactic Acid Calcium Phosphorus Magnesium Transferrin AST ALT Alkaline Phosphatase Total Creatine Kinase CK-MB (CK-2) Serum Total Protein Total Protein Albumin Rxvqy-5-Uhktofgwc Pfmot-6-Newbxextg Gamma Globulins PEP Interpretation HDL Cholesterol TSH Arterial Blood Glucose Arterial Blood Ionized Calcium Urine WBC (Auto) Urine Creatinine Urine Total Protein Crossmatch 04/26/21 04/26/21 04/26/21 06:31 09:13 09:33 WBC RBC Hgb Hct MCH 27 L RDW 16.9 H Plt Count 58 L Seg Neuts % (Manual) 77.0 H Lymphocytes % (Manual) 4.0 L Nucleated RBC % 2.0 H Seg Neutrophils # Man Lymphocytes # (Manual) 0.3 L PT ABG pH POC ABG pCO2 POC ABG pO2 ABG pO2 ABG O2 Saturation ABG Base Excess ABG Hemoglobin ABG Oxyhemoglobin ABG Potassium ABG Chloride ABG Glucose Oxyhemoglobin Carboxyhemoglobin Sodium Potassium Chloride Carbon Dioxide BUN Creatinine Glucose POC Glucose 428 H 454 H Hemoglobin A1c Lactic Acid Calcium Phosphorus Magnesium Transferrin AST ALT Alkaline Phosphatase Total Creatine Kinase CK-MB (CK-2) Serum Total Protein Total Protein Albumin Xckvz-6-Phyknnaog Rnwak-2-Hsysnxgsh Gamma Globulins PEP Interpretation HDL Cholesterol TSH Arterial Blood Glucose Arterial Blood Ionized Calcium Urine WBC (Auto) Urine Creatinine Urine Total Protein Crossmatch 04/26/21 04/26/21 04/26/21 09:33 09:33 11:00 WBC RBC Hgb Hct MCH RDW Plt Count Seg Neuts % (Manual) Lymphocytes % (Manual) Nucleated RBC % Seg Neutrophils # Man Lymphocytes # (Manual) PT ABG pH 7.281 L POC ABG pCO2 POC ABG pO2 66.4 L ABG pO2 ABG O2 Saturation ABG Base Excess ABG Hemoglobin 10.9 L ABG Oxyhemoglobin 91 L ABG Potassium ABG Chloride ABG Glucose 521 H Oxyhemoglobin Carboxyhemoglobin Sodium Potassium Chloride Carbon Dioxide 19 L BUN 98 H Creatinine 3.8 H Glucose 530 H* POC Glucose Hemoglobin A1c Lactic Acid Calcium 8.1 L Phosphorus 5.60 H D Magnesium Transferrin AST 60 H ALT 72 H Alkaline Phosphatase 168 H Total Creatine Kinase CK-MB (CK-2) Serum Total Protein Total Protein 4.6 L Albumin 1.7 L Mipdd-5-Jrltjrnwv Mygyq-5-Rtlwdnxem Gamma Globulins PEP Interpretation HDL Cholesterol TSH Arterial Blood Glucose 521 H Arterial Blood Ionized Calcium Urine WBC (Auto) Urine Creatinine Urine Total Protein Crossmatch 04/26/21 04/26/21 04/26/21 12:36 15:39 16:18 WBC RBC Hgb Hct MCH RDW Plt Count Seg Neuts % (Manual) Lymphocytes % (Manual) Nucleated RBC % Seg Neutrophils # Man Lymphocytes # (Manual) PT ABG pH 7.275 L POC ABG pCO2 POC ABG pO2 63.4 L ABG pO2 ABG O2 Saturation ABG Base Excess ABG Hemoglobin 8.4 L ABG Oxyhemoglobin 89.5 L ABG Potassium ABG Chloride 108.0 H ABG Glucose 404 H Oxyhemoglobin Carboxyhemoglobin Sodium Potassium Chloride Carbon Dioxide BUN Creatinine Glucose POC Glucose 414 H 324 H Hemoglobin A1c Lactic Acid Calcium Phosphorus Magnesium Transferrin AST ALT Alkaline Phosphatase Total Creatine Kinase CK-MB (CK-2) Serum Total Protein Total Protein Albumin Jzptk-1-Onexqlmwz Zoegg-5-Gfyefarzc Gamma Globulins PEP Interpretation HDL Cholesterol TSH Arterial Blood Glucose 404 H Arterial Blood Ionized Calcium Urine WBC (Auto) Urine Creatinine Urine Total Protein Crossmatch 04/26/21 04/27/21 04/27/21 21:14 00:07 05:47 WBC RBC Hgb Hct MCH RDW Plt Count Seg Neuts % (Manual) Lymphocytes % (Manual) Nucleated RBC % Seg Neutrophils # Man Lymphocytes # (Manual) PT ABG pH POC ABG pCO2 POC ABG pO2 ABG pO2 ABG O2 Saturation ABG Base Excess ABG Hemoglobin ABG Oxyhemoglobin ABG Potassium ABG Chloride ABG Glucose Oxyhemoglobin Carboxyhemoglobin Sodium Potassium Chloride Carbon Dioxide BUN Creatinine Glucose POC Glucose 242 H 282 H 214 H Hemoglobin A1c Lactic Acid Calcium Phosphorus Magnesium Transferrin AST ALT Alkaline Phosphatase Total Creatine Kinase CK-MB (CK-2) Serum Total Protein Total Protein Albumin Larqr-2-Pltbrspow Vlmiy-3-Kpwtohfpp Gamma Globulins PEP Interpretation HDL Cholesterol TSH Arterial Blood Glucose Arterial Blood Ionized Calcium Urine WBC (Auto) Urine Creatinine Urine Total Protein Crossmatch 04/27/21 04/27/21 04/27/21 06:23 07:43 08:30 WBC RBC Hgb Hct MCH RDW Plt Count Seg Neuts % (Manual) Lymphocytes % (Manual) Nucleated RBC % Seg Neutrophils # Man Lymphocytes # (Manual) PT ABG pH 7.309 L POC ABG pCO2 POC ABG pO2 70.6 L ABG pO2 ABG O2 Saturation ABG Base Excess ABG Hemoglobin 9.16 L ABG Oxyhemoglobin 92.4 L ABG Potassium ABG Chloride ABG Glucose Oxyhemoglobin Carboxyhemoglobin Sodium Potassium Chloride 110.1 H Carbon Dioxide 15 L BUN 109 H Creatinine 4.3 H Glucose 218 H POC Glucose 187 H Hemoglobin A1c Lactic Acid Calcium Phosphorus Magnesium Transferrin AST 53 H ALT Alkaline Phosphatase 148 H Total Creatine Kinase 1000 H CK-MB (CK-2) Serum Total Protein Total Protein 5.2 L Albumin 1.2 L Ywfpn-6-Ejxctasps Cjnbc-7-Jjibqvobr Gamma Globulins PEP Interpretation HDL Cholesterol TSH Arterial Blood Glucose Arterial Blood Ionized Calcium Urine WBC (Auto) Urine Creatinine Urine Total Protein Crossmatch 04/27/21 04/27/21 04/27/21 11:54 21:08 23:28 WBC RBC Hgb Hct MCH RDW Plt Count Seg Neuts % (Manual) Lymphocytes % (Manual) Nucleated RBC % Seg Neutrophils # Man Lymphocytes # (Manual) PT ABG pH POC ABG pCO2 POC ABG pO2 ABG pO2 ABG O2 Saturation ABG Base Excess ABG Hemoglobin ABG Oxyhemoglobin ABG Potassium ABG Chloride ABG Glucose Oxyhemoglobin Carboxyhemoglobin Sodium Potassium Chloride Carbon Dioxide BUN Creatinine Glucose POC Glucose 147 H 136 H 201 H Hemoglobin A1c Lactic Acid Calcium Phosphorus Magnesium Transferrin AST ALT Alkaline Phosphatase Total Creatine Kinase CK-MB (CK-2) Serum Total Protein Total Protein Albumin Rarew-2-Wzallirjh Kjovp-8-Zyezjsysw Gamma Globulins PEP Interpretation HDL Cholesterol TSH Arterial Blood Glucose Arterial Blood Ionized Calcium Urine WBC (Auto) Urine Creatinine Urine Total Protein Crossmatch 04/28/21 04/28/21 04/28/21 04:00 04:00 05:00 WBC 12.6 H RBC 3.59 L Hgb 9.4 L Hct MCH 26 L RDW 16.6 H Plt Count 111 L Seg Neuts % (Manual) Lymphocytes % (Manual) 1.0 L Nucleated RBC % 4.0 H Seg Neutrophils # Man 11.6 H Lymphocytes # (Manual) 0.1 L PT 15.3 H ABG pH POC ABG pCO2 POC ABG pO2 ABG pO2 ABG O2 Saturation ABG Base Excess ABG Hemoglobin ABG Oxyhemoglobin ABG Potassium ABG Chloride ABG Glucose Oxyhemoglobin Carboxyhemoglobin Sodium 147 H Potassium 3.5 L D Chloride Carbon Dioxide BUN 79 H Creatinine 3.8 H Glucose 194 H POC Glucose Hemoglobin A1c Lactic Acid Calcium 8.1 L Phosphorus Magnesium Transferrin AST ALT Alkaline Phosphatase Total Creatine Kinase CK-MB (CK-2) Serum Total Protein Total Protein Albumin Zsnot-9-Rhioptkqe Kloet-1-Fxugghtco Gamma Globulins PEP Interpretation HDL Cholesterol TSH Arterial Blood Glucose Arterial Blood Ionized Calcium Urine WBC (Auto) Urine Creatinine Urine Total Protein Crossmatch 04/28/21 04/28/21 04/28/21 05:08 05:18 11:04 WBC RBC Hgb Hct MCH RDW Plt Count Seg Neuts % (Manual) Lymphocytes % (Manual) Nucleated RBC % Seg Neutrophils # Man Lymphocytes # (Manual) PT ABG pH POC ABG pCO2 POC ABG pO2 66.5 L ABG pO2 ABG O2 Saturation ABG Base Excess ABG Hemoglobin 9.7 L ABG Oxyhemoglobin 92.5 L ABG Potassium 3.2 L ABG Chloride ABG Glucose 200 H Oxyhemoglobin Carboxyhemoglobin Sodium Potassium Chloride Carbon Dioxide BUN Creatinine Glucose POC Glucose 183 H 174 H Hemoglobin A1c Lactic Acid Calcium Phosphorus Magnesium Transferrin AST ALT Alkaline Phosphatase Total Creatine Kinase CK-MB (CK-2) Serum Total Protein Total Protein Albumin Vtmnu-3-Eakynhvkc Jvcwr-3-Uvoebxcqm Gamma Globulins PEP Interpretation HDL Cholesterol TSH Arterial Blood Glucose 200 H Arterial Blood Ionized Calcium 4.5 L Urine WBC (Auto) Urine Creatinine Urine Total Protein Crossmatch 04/28/21 04/28/21 04/28/21 17:16 21:14 23:41 WBC RBC Hgb Hct MCH RDW Plt Count Seg Neuts % (Manual) Lymphocytes % (Manual) Nucleated RBC % Seg Neutrophils # Man Lymphocytes # (Manual) PT ABG pH POC ABG pCO2 POC ABG pO2 ABG pO2 ABG O2 Saturation ABG Base Excess ABG Hemoglobin ABG Oxyhemoglobin ABG Potassium ABG Chloride ABG Glucose Oxyhemoglobin Carboxyhemoglobin Sodium Potassium Chloride Carbon Dioxide BUN Creatinine Glucose POC Glucose 135 H 134 H 171 H Hemoglobin A1c Lactic Acid Calcium Phosphorus Magnesium Transferrin AST ALT Alkaline Phosphatase Total Creatine Kinase CK-MB (CK-2) Serum Total Protein Total Protein Albumin Svoce-1-Dsiekqdlr Umjpa-1-Pntikuowr Gamma Globulins PEP Interpretation HDL Cholesterol TSH Arterial Blood Glucose Arterial Blood Ionized Calcium Urine WBC (Auto) Urine Creatinine Urine Total Protein Crossmatch 04/29/21 04/29/21 04/29/21 01:16 04:00 04:00 WBC 13.3 H RBC 3.12 L Hgb 8.3 L Hct 26.2 L MCH 27 L RDW 16.3 H Plt Count 132 L Seg Neuts % (Manual) Lymphocytes % (Manual) Nucleated RBC % Seg Neutrophils # Man Lymphocytes # (Manual) PT ABG pH POC ABG pCO2 POC ABG pO2 ABG pO2 ABG O2 Saturation ABG Base Excess ABG Hemoglobin ABG Oxyhemoglobin ABG Potassium ABG Chloride ABG Glucose Oxyhemoglobin Carboxyhemoglobin Sodium Potassium Chloride Carbon Dioxide BUN 63 H Creatinine 3.4 H Glucose 249 H POC Glucose 236 H Hemoglobin A1c Lactic Acid Calcium 8.2 L Phosphorus Magnesium Transferrin AST 61 H ALT 71 H Alkaline Phosphatase 170 H Total Creatine Kinase CK-MB (CK-2) Serum Total Protein Total Protein 5.1 L Albumin 1.6 L Cwvvv-8-Mtamaisec Qijcx-4-Fywunbyjo Gamma Globulins PEP Interpretation HDL Cholesterol TSH Arterial Blood Glucose Arterial Blood Ionized Calcium Urine WBC (Auto) Urine Creatinine Urine Total Protein Crossmatch 04/29/21 04/29/21 04/29/21 11:35 13:30 16:01 WBC RBC Hgb Hct MCH RDW Plt Count Seg Neuts % (Manual) Lymphocytes % (Manual) Nucleated RBC % Seg Neutrophils # Man Lymphocytes # (Manual) PT ABG pH POC ABG pCO2 POC ABG pO2 ABG pO2 ABG O2 Saturation ABG Base Excess ABG Hemoglobin ABG Oxyhemoglobin ABG Potassium ABG Chloride ABG Glucose Oxyhemoglobin Carboxyhemoglobin Sodium Potassium Chloride Carbon Dioxide BUN Creatinine Glucose POC Glucose 320 H 297 H Hemoglobin A1c Lactic Acid Calcium Phosphorus Magnesium Transferrin AST ALT Alkaline Phosphatase Total Creatine Kinase CK-MB (CK-2) Serum Total Protein Total Protein Albumin Hqhzq-7-Doqlpmgfc Rmovh-6-Ajxhoyufm Gamma Globulins PEP Interpretation HDL Cholesterol TSH Arterial Blood Glucose Arterial Blood Ionized Calcium Urine WBC (Auto) > 182.0 H Urine Creatinine Urine Total Protein Crossmatch 04/29/21 04/29/21 04/30/21 21:58 23:35 04:00 WBC 11.4 H RBC 3.27 L Hgb 8.7 L Hct 27.5 L MCH 27 L RDW 16.6 H Plt Count Seg Neuts % (Manual) Lymphocytes % (Manual) Nucleated RBC % Seg Neutrophils # Man Lymphocytes # (Manual) PT ABG pH POC ABG pCO2 POC ABG pO2 ABG pO2 ABG O2 Saturation ABG Base Excess ABG Hemoglobin ABG Oxyhemoglobin ABG Potassium ABG Chloride ABG Glucose Oxyhemoglobin Carboxyhemoglobin Sodium Potassium Chloride Carbon Dioxide BUN Creatinine Glucose POC Glucose 260 H 254 H Hemoglobin A1c Lactic Acid Calcium Phosphorus Magnesium Transferrin AST ALT Alkaline Phosphatase Total Creatine Kinase CK-MB (CK-2) Serum Total Protein Total Protein Albumin Tkztv-5-Mzbolarju Ilmrs-1-Fguruvzer Gamma Globulins PEP Interpretation HDL Cholesterol TSH Arterial Blood Glucose Arterial Blood Ionized Calcium Urine WBC (Auto) Urine Creatinine Urine Total Protein Crossmatch 04/30/21 04/30/21 04/30/21 04:00 05:17 05:31 WBC RBC Hgb Hct MCH RDW Plt Count Seg Neuts % (Manual) Lymphocytes % (Manual) Nucleated RBC % Seg Neutrophils # Man Lymphocytes # (Manual) PT ABG pH 7.452 H POC ABG pCO2 30.5 L POC ABG pO2 54.5 L ABG pO2 ABG O2 Saturation ABG Base Excess ABG Hemoglobin 10.1 L ABG Oxyhemoglobin 87.4 L ABG Potassium 2.9 L ABG Chloride ABG Glucose 305 H Oxyhemoglobin Carboxyhemoglobin Sodium Potassium 3.1 L Chloride Carbon Dioxide BUN 79 H Creatinine 3.9 H Glucose 275 H POC Glucose 267 H Hemoglobin A1c Lactic Acid Calcium Phosphorus 5.60 H D Magnesium Transferrin AST ALT Alkaline Phosphatase Total Creatine Kinase CK-MB (CK-2) Serum Total Protein Total Protein Albumin Harvs-0-Vlqwxkmrb Rogww-1-Zmrxaokeo Gamma Globulins PEP Interpretation HDL Cholesterol TSH Arterial Blood Glucose 305 H Arterial Blood Ionized Calcium Urine WBC (Auto) Urine Creatinine Urine Total Protein Crossmatch 04/30/21 04/30/21 04/30/21 12:31 17:50 22:24 WBC RBC Hgb Hct MCH RDW Plt Count Seg Neuts % (Manual) Lymphocytes % (Manual) Nucleated RBC % Seg Neutrophils # Man Lymphocytes # (Manual) PT ABG pH POC ABG pCO2 POC ABG pO2 ABG pO2 ABG O2 Saturation ABG Base Excess ABG Hemoglobin ABG Oxyhemoglobin ABG Potassium ABG Chloride ABG Glucose Oxyhemoglobin Carboxyhemoglobin Sodium Potassium Chloride Carbon Dioxide BUN Creatinine Glucose POC Glucose 259 H 161 H 146 H Hemoglobin A1c Lactic Acid Calcium Phosphorus Magnesium Transferrin AST ALT Alkaline Phosphatase Total Creatine Kinase CK-MB (CK-2) Serum Total Protein Total Protein Albumin Lvryd-6-Msnpepsgb Lzeyk-2-Dxzfzkuml Gamma Globulins PEP Interpretation HDL Cholesterol TSH Arterial Blood Glucose Arterial Blood Ionized Calcium Urine WBC (Auto) Urine Creatinine Urine Total Protein Crossmatch 05/01/21 05/01/21 05/01/21 00:09 03:30 04:00 WBC 12.0 H RBC 3.08 L Hgb 8.1 L Hct 25.6 L MCH 26 L RDW 16.3 H Plt Count Seg Neuts % (Manual) Lymphocytes % (Manual) Nucleated RBC % Seg Neutrophils # Man Lymphocytes # (Manual) PT ABG pH 7.493 H POC ABG pCO2 POC ABG pO2 ABG pO2 ABG O2 Saturation ABG Base Excess ABG Hemoglobin 9.3 L ABG Oxyhemoglobin ABG Potassium ABG Chloride ABG Glucose 167 H Oxyhemoglobin Carboxyhemoglobin 0.4 L Sodium Potassium Chloride Carbon Dioxide BUN Creatinine Glucose POC Glucose 149 H Hemoglobin A1c Lactic Acid Calcium Phosphorus Magnesium Transferrin AST ALT Alkaline Phosphatase Total Creatine Kinase CK-MB (CK-2) Serum Total Protein Total Protein Albumin Ydumh-1-Rpvoivijf Wajnw-7-Iuymvlacy Gamma Globulins PEP Interpretation HDL Cholesterol TSH Arterial Blood Glucose 167 H Arterial Blood Ionized Calcium Urine WBC (Auto) Urine Creatinine Urine Total Protein Crossmatch 05/01/21 05/01/21 05/01/21 04:00 05:48 11:49 WBC RBC Hgb Hct MCH RDW Plt Count Seg Neuts % (Manual) Lymphocytes % (Manual) Nucleated RBC % Seg Neutrophils # Man Lymphocytes # (Manual) PT ABG pH POC ABG pCO2 POC ABG pO2 ABG pO2 ABG O2 Saturation ABG Base Excess ABG Hemoglobin ABG Oxyhemoglobin ABG Potassium ABG Chloride ABG Glucose Oxyhemoglobin Carboxyhemoglobin Sodium Potassium 3.5 L Chloride Carbon Dioxide BUN 62 H Creatinine 3.3 H Glucose 179 H POC Glucose 197 H 167 H Hemoglobin A1c Lactic Acid Calcium 8.3 L Phosphorus Magnesium Transferrin AST ALT Alkaline Phosphatase Total Creatine Kinase CK-MB (CK-2) Serum Total Protein Total Protein Albumin Dbqzp-3-Kqfzjfwvv Szswk-0-Jzswauxwp Gamma Globulins PEP Interpretation HDL Cholesterol TSH Arterial Blood Glucose Arterial Blood Ionized Calcium Urine WBC (Auto) Urine Creatinine Urine Total Protein Crossmatch 05/01/21 05/01/21 05/02/21 16:24 23:25 04:00 WBC 14.2 H RBC 2.61 L Hgb 6.9 L Hct 22.1 L MCH 27 L RDW 16.1 H Plt Count Seg Neuts % (Manual) Lymphocytes % (Manual) Nucleated RBC % Seg Neutrophils # Man Lymphocytes # (Manual) PT ABG pH POC ABG pCO2 POC ABG pO2 ABG pO2 ABG O2 Saturation ABG Base Excess ABG Hemoglobin ABG Oxyhemoglobin ABG Potassium ABG Chloride ABG Glucose Oxyhemoglobin Carboxyhemoglobin Sodium Potassium Chloride Carbon Dioxide BUN Creatinine Glucose POC Glucose 157 H 147 H Hemoglobin A1c Lactic Acid Calcium Phosphorus Magnesium Transferrin AST ALT Alkaline Phosphatase Total Creatine Kinase CK-MB (CK-2) Serum Total Protein Total Protein Albumin Vkusk-5-Wpgslgeao Loqtr-1-Hiltyuzyq Gamma Globulins PEP Interpretation HDL Cholesterol TSH Arterial Blood Glucose Arterial Blood Ionized Calcium Urine WBC (Auto) Urine Creatinine Urine Total Protein Crossmatch 05/02/21 05/02/21 05/02/21 04:00 04:34 05:23 WBC RBC Hgb Hct MCH RDW Plt Count Seg Neuts % (Manual) Lymphocytes % (Manual) Nucleated RBC % Seg Neutrophils # Man Lymphocytes # (Manual) PT ABG pH 7.487 H POC ABG pCO2 POC ABG pO2 78.6 L ABG pO2 ABG O2 Saturation ABG Base Excess ABG Hemoglobin 11.5 L ABG Oxyhemoglobin ABG Potassium ABG Chloride ABG Glucose 122 H Oxyhemoglobin Carboxyhemoglobin Sodium Potassium Chloride Carbon Dioxide BUN 49 H Creatinine 2.8 H Glucose 117 H POC Glucose 119 H Hemoglobin A1c Lactic Acid Calcium Phosphorus Magnesium Transferrin AST ALT Alkaline Phosphatase Total Creatine Kinase CK-MB (CK-2) Serum Total Protein Total Protein Albumin Qocpk-4-Ytbxauhny Bqnel-4-Ezvqkxlgn Gamma Globulins PEP Interpretation HDL Cholesterol TSH Arterial Blood Glucose 122 H Arterial Blood Ionized Calcium Urine WBC (Auto) Urine Creatinine Urine Total Protein Crossmatch 05/02/21 05/02/21 05/02/21 12:00 12:04 17:29 WBC RBC Hgb Hct MCH RDW Plt Count Seg Neuts % (Manual) Lymphocytes % (Manual) Nucleated RBC % Seg Neutrophils # Man Lymphocytes # (Manual) PT ABG pH POC ABG pCO2 POC ABG pO2 ABG pO2 ABG O2 Saturation ABG Base Excess ABG Hemoglobin ABG Oxyhemoglobin ABG Potassium ABG Chloride ABG Glucose Oxyhemoglobin Carboxyhemoglobin Sodium Potassium Chloride Carbon Dioxide BUN Creatinine Glucose POC Glucose 115 H 120 H Hemoglobin A1c Lactic Acid Calcium Phosphorus Magnesium Transferrin AST ALT Alkaline Phosphatase Total Creatine Kinase CK-MB (CK-2) Serum Total Protein Total Protein Albumin Sbjec-8-Ypmhjlaah Goiyw-1-Epdvonhlc Gamma Globulins PEP Interpretation HDL Cholesterol TSH Arterial Blood Glucose Arterial Blood Ionized Calcium Urine WBC (Auto) Urine Creatinine Urine Total Protein Crossmatch See Detail 05/02/21 05/03/21 05/03/21 23:36 04:00 04:00 WBC 13.9 H RBC 3.22 L Hgb 8.7 L Hct 27.4 L MCH 27 L RDW 15.8 H Plt Count Seg Neuts % (Manual) Lymphocytes % (Manual) Nucleated RBC % Seg Neutrophils # Man Lymphocytes # (Manual) PT ABG pH POC ABG pCO2 POC ABG pO2 ABG pO2 ABG O2 Saturation ABG Base Excess ABG Hemoglobin ABG Oxyhemoglobin ABG Potassium ABG Chloride ABG Glucose Oxyhemoglobin Carboxyhemoglobin Sodium 146 H Potassium 3.5 L Chloride 107.5 H Carbon Dioxide BUN 40 H Creatinine 2.5 H Glucose 104 H POC Glucose 130 H Hemoglobin A1c Lactic Acid Calcium Phosphorus Magnesium Transferrin AST 53 H ALT Alkaline Phosphatase 149 H Total Creatine Kinase CK-MB (CK-2) Serum Total Protein Total Protein 5.2 L Albumin 1.5 L Ivcsn-3-Beebobmnn Jxdoz-8-Aetdkmngr Gamma Globulins PEP Interpretation HDL Cholesterol TSH Arterial Blood Glucose Arterial Blood Ionized Calcium Urine WBC (Auto) Urine Creatinine Urine Total Protein Crossmatch 05/03/21 05/04/21 05/04/21 17:26 01:24 04:48 WBC 14.3 H RBC 3.14 L Hgb 8.5 L Hct 26.3 L MCH 27 L RDW 15.8 H Plt Count Seg Neuts % (Manual) Lymphocytes % (Manual) Nucleated RBC % Seg Neutrophils # Man Lymphocytes # (Manual) PT ABG pH POC ABG pCO2 POC ABG pO2 ABG pO2 ABG O2 Saturation ABG Base Excess ABG Hemoglobin ABG Oxyhemoglobin ABG Potassium ABG Chloride ABG Glucose Oxyhemoglobin Carboxyhemoglobin Sodium Potassium Chloride Carbon Dioxide BUN Creatinine Glucose POC Glucose 123 H 146 H Hemoglobin A1c Lactic Acid Calcium Phosphorus Magnesium Transferrin AST ALT Alkaline Phosphatase Total Creatine Kinase CK-MB (CK-2) Serum Total Protein Total Protein Albumin Ntxoy-0-Bdoaywtjt Njqby-7-Ktiorexqu Gamma Globulins PEP Interpretation HDL Cholesterol TSH Arterial Blood Glucose Arterial Blood Ionized Calcium Urine WBC (Auto) Urine Creatinine Urine Total Protein Crossmatch 05/04/21 05/04/21 05/04/21 04:48 05:15 11:24 WBC RBC Hgb Hct MCH RDW Plt Count Seg Neuts % (Manual) Lymphocytes % (Manual) Nucleated RBC % Seg Neutrophils # Man Lymphocytes # (Manual) PT ABG pH POC ABG pCO2 POC ABG pO2 ABG pO2 ABG O2 Saturation ABG Base Excess ABG Hemoglobin ABG Oxyhemoglobin ABG Potassium ABG Chloride ABG Glucose Oxyhemoglobin Carboxyhemoglobin Sodium Potassium 3.5 L Chloride Carbon Dioxide BUN 58 H Creatinine 3.4 H Glucose 168 H POC Glucose 162 H 145 H Hemoglobin A1c Lactic Acid Calcium Phosphorus 5.30 H Magnesium Transferrin AST ALT Alkaline Phosphatase Total Creatine Kinase CK-MB (CK-2) Serum Total Protein Total Protein Albumin Dqnqa-9-Rnjrwxlyv Xoukc-0-Jwsphvccz Gamma Globulins PEP Interpretation HDL Cholesterol 24 L TSH Arterial Blood Glucose Arterial Blood Ionized Calcium Urine WBC (Auto) Urine Creatinine Urine Total Protein Crossmatch 05/04/21 05/04/21 05/05/21 16:01 23:32 04:00 WBC RBC Hgb Hct MCH RDW Plt Count Seg Neuts % (Manual) Lymphocytes % (Manual) Nucleated RBC % Seg Neutrophils # Man Lymphocytes # (Manual) PT ABG pH POC ABG pCO2 POC ABG pO2 ABG pO2 ABG O2 Saturation ABG Base Excess ABG Hemoglobin ABG Oxyhemoglobin ABG Potassium ABG Chloride ABG Glucose Oxyhemoglobin Carboxyhemoglobin Sodium Potassium 3.4 L Chloride Carbon Dioxide BUN 43 H Creatinine 2.7 H Glucose 124 H POC Glucose 148 H 134 H Hemoglobin A1c Lactic Acid Calcium 8.2 L Phosphorus Magnesium Transferrin AST ALT Alkaline Phosphatase Total Creatine Kinase CK-MB (CK-2) Serum Total Protein Total Protein Albumin Nixbe-3-Uabqhiggz Nzuhf-7-Snjwcbpxu Gamma Globulins PEP Interpretation HDL Cholesterol TSH Arterial Blood Glucose Arterial Blood Ionized Calcium Urine WBC (Auto) Urine Creatinine Urine Total Protein Crossmatch 05/05/21 05/06/21 05/06/21 05:14 00:01 04:00 WBC RBC Hgb Hct MCH RDW Plt Count Seg Neuts % (Manual) Lymphocytes % (Manual) Nucleated RBC % Seg Neutrophils # Man Lymphocytes # (Manual) PT ABG pH POC ABG pCO2 POC ABG pO2 ABG pO2 ABG O2 Saturation ABG Base Excess ABG Hemoglobin ABG Oxyhemoglobin ABG Potassium ABG Chloride ABG Glucose Oxyhemoglobin Carboxyhemoglobin Sodium Potassium 3.2 L Chloride Carbon Dioxide BUN 56 H Creatinine 3.0 H Glucose 110 H POC Glucose 120 H 120 H Hemoglobin A1c Lactic Acid Calcium 7.8 L Phosphorus 4.60 H Magnesium Transferrin AST ALT Alkaline Phosphatase Total Creatine Kinase CK-MB (CK-2) Serum Total Protein Total Protein Albumin Rgshq-8-Pltorxxra Xrzbl-9-Hpuyncyvv Gamma Globulins PEP Interpretation HDL Cholesterol TSH Arterial Blood Glucose Arterial Blood Ionized Calcium Urine WBC (Auto) Urine Creatinine Urine Total Protein Crossmatch 05/06/21 05/06/21 05/06/21 04:27 05:15 17:37 WBC RBC 3.03 L Hgb 8.3 L Hct 25.4 L MCH 27 L RDW Plt Count Seg Neuts % (Manual) Lymphocytes % (Manual) Nucleated RBC % Seg Neutrophils # Man Lymphocytes # (Manual) PT ABG pH POC ABG pCO2 POC ABG pO2 ABG pO2 ABG O2 Saturation ABG Base Excess ABG Hemoglobin ABG Oxyhemoglobin ABG Potassium ABG Chloride ABG Glucose Oxyhemoglobin Carboxyhemoglobin Sodium Potassium Chloride Carbon Dioxide BUN Creatinine Glucose POC Glucose 137 H 132 H Hemoglobin A1c Lactic Acid Calcium Phosphorus Magnesium Transferrin AST ALT Alkaline Phosphatase Total Creatine Kinase CK-MB (CK-2) Serum Total Protein Total Protein Albumin Elpri-2-Tgudpvglp Dozni-5-Znuuppqwf Gamma Globulins PEP Interpretation HDL Cholesterol TSH Arterial Blood Glucose Arterial Blood Ionized Calcium Urine WBC (Auto) Urine Creatinine Urine Total Protein Crossmatch 05/07/21 05/07/21 05/07/21 00:30 04:23 04:23 WBC RBC Hgb Hct MCH RDW Plt Count Seg Neuts % (Manual) Lymphocytes % (Manual) Nucleated RBC % Seg Neutrophils # Man Lymphocytes # (Manual) PT ABG pH POC ABG pCO2 POC ABG pO2 ABG pO2 ABG O2 Saturation ABG Base Excess ABG Hemoglobin ABG Oxyhemoglobin ABG Potassium ABG Chloride ABG Glucose Oxyhemoglobin Carboxyhemoglobin Sodium Potassium 3.4 L Chloride 107.1 H Carbon Dioxide BUN 28 H Creatinine 1.9 H Glucose 165 H POC Glucose 121 H Hemoglobin A1c Lactic Acid Calcium 8.2 L Phosphorus Magnesium 1.60 L Transferrin AST ALT Alkaline Phosphatase Total Creatine Kinase CK-MB (CK-2) Serum Total Protein Total Protein Albumin Ksjho-5-Anoucwfds Uvkop-7-Tpgssbmkg Gamma Globulins PEP Interpretation HDL Cholesterol TSH Arterial Blood Glucose Arterial Blood Ionized Calcium Urine WBC (Auto) Urine Creatinine Urine Total Protein Crossmatch 05/07/21 05/07/21 05/07/21 05:30 11:37 17:28 WBC RBC Hgb Hct MCH RDW Plt Count Seg Neuts % (Manual) Lymphocytes % (Manual) Nucleated RBC % Seg Neutrophils # Man Lymphocytes # (Manual) PT ABG pH POC ABG pCO2 POC ABG pO2 ABG pO2 ABG O2 Saturation ABG Base Excess ABG Hemoglobin ABG Oxyhemoglobin ABG Potassium ABG Chloride ABG Glucose Oxyhemoglobin Carboxyhemoglobin Sodium Potassium Chloride Carbon Dioxide BUN Creatinine Glucose POC Glucose 205 H 148 H 170 H Hemoglobin A1c Lactic Acid Calcium Phosphorus Magnesium Transferrin AST ALT Alkaline Phosphatase Total Creatine Kinase CK-MB (CK-2) Serum Total Protein Total Protein Albumin Itpvs-2-Cylawxlzz Wcbij-5-Gyekuixlk Gamma Globulins PEP Interpretation HDL Cholesterol TSH Arterial Blood Glucose Arterial Blood Ionized Calcium Urine WBC (Auto) Urine Creatinine Urine Total Protein Crossmatch 05/07/21 05/08/21 05/08/21 23:57 05:12 05:12 WBC 11.2 H RBC 3.01 L Hgb 8.2 L Hct 25.5 L MCH 27 L RDW 15.4 H Plt Count Seg Neuts % (Manual) Lymphocytes % (Manual) Nucleated RBC % Seg Neutrophils # Man Lymphocytes # (Manual) PT ABG pH POC ABG pCO2 POC ABG pO2 ABG pO2 ABG O2 Saturation ABG Base Excess ABG Hemoglobin ABG Oxyhemoglobin ABG Potassium ABG Chloride ABG Glucose Oxyhemoglobin Carboxyhemoglobin Sodium Potassium 3.4 L Chloride Carbon Dioxide BUN 37 H Creatinine 2.1 H Glucose 160 H POC Glucose 172 H Hemoglobin A1c Lactic Acid Calcium 8.3 L Phosphorus Magnesium Transferrin AST ALT Alkaline Phosphatase Total Creatine Kinase CK-MB (CK-2) Serum Total Protein Total Protein Albumin Zzjki-7-Arfcvljbd Futez-7-Qpclqfwil Gamma Globulins PEP Interpretation HDL Cholesterol TSH Arterial Blood Glucose Arterial Blood Ionized Calcium Urine WBC (Auto) Urine Creatinine Urine Total Protein Crossmatch 05/08/21 05:20 WBC RBC Hgb Hct MCH RDW Plt Count Seg Neuts % (Manual) Lymphocytes % (Manual) Nucleated RBC % Seg Neutrophils # Man Lymphocytes # (Manual) PT ABG pH POC ABG pCO2 POC ABG pO2 ABG pO2 ABG O2 Saturation ABG Base Excess ABG Hemoglobin ABG Oxyhemoglobin ABG Potassium ABG Chloride ABG Glucose Oxyhemoglobin Carboxyhemoglobin Sodium Potassium Chloride Carbon Dioxide BUN Creatinine Glucose POC Glucose 148 H Hemoglobin A1c Lactic Acid Calcium Phosphorus Magnesium Transferrin AST ALT Alkaline Phosphatase Total Creatine Kinase CK-MB (CK-2) Serum Total Protein Total Protein Albumin Sgtmk-2-Rjqzreigj Qhxim-8-Fnmszwrex Gamma Globulins PEP Interpretation HDL Cholesterol TSH Arterial Blood Glucose Arterial Blood Ionized Calcium Urine WBC (Auto) Urine Creatinine Urine Total Protein Crossmatch
--- NOTE | 2021-05-08 12:58 | Progress Note ---
<HENRIETTA MARTÍNEZ - Last Filed: 05/08/21 17:35> Assessment and Plan Assessment and plan: This is a 80-year-old female [place] [facility] resident with GERD, hypothyroidism, hyperlipidemia, schizophrenia and dementia admitted with hypothermia, hyponatremia, hypokalemia, lactic acidosis, acute kidney injury, rhabdomyolysis and hyperosmolar nonketotic state. Neuro: Acute CVA, acute metabolic encephalopathy, normal pressure hydrocephalus -CT head shows lateral ventricles and third ventricle dilation, raises possibility of normal pressure hydrocephalus -Neurology and neurosurgery consulted, appreciate recommendations -neurosurgery has no acute interventions -04/29 s/p spinal tap removal 24 mL, mental is unchanged -csf fluid showed {14 wbc,324 rbc,normal protein and glucose ,c/s is unremarkable so far} -MRI brain is remarkable for multiple ischemic event cortical as well as subcortical in both hemisphere and in all distribuation with slight petechial hemorrhage is noted findings is suggestive of possible embolic event with water shed infarct can not be totally excluded. -MRA/MRV completed-see chart for details - source of emboli not found -LINCOLN not successful -ASA 81 and lipitor -LDL noted -PT/ST/OT consulted -Aspiration/seizure precautions -Maintain sleep-wake cycle -Avoid delirium -Correct electrolyte derangements -Hold off on restarting home antipsychotic medications when obtained -Risperidone 3 mg, Donepazil 5 mg Cardio: Hypotension -s/p Vasopressor support with Levophed -MAP goal above 65 -Midodrine 10 mg TID -decrease dose -Blood pressure monitoring per protocol -Home amlodipine 10 mg on hold Respiratory: Acute hypoxic respiratory failure -s/p Bipap and ventimask -s/p bronchoscopy on 04/26 -Intubated 04/26 with 7.5 oett at 22 lips -Am vent settings: AC rate 14, tidal volume 450, PEEP 6, FiO2 30% -see RT notes for titration -AM ABG noted -s/p racimec epi x2 04/22 and 04/23 -Supplemental oxygen as needed -SPO2 monitoring -Pulmonary hygiene -Repeat CXR shows increased interstitial prominence of densities in bilateral lungs GI: Hypoalbuminemia, transaminitis -Presented with transaminitis -Trend LFTs -Ntr consult for TF -FWF 140 ml Q 4 hr -24 hours +841 ml -HD 05/06 -BR: Senokot -PPI -Nutritional supplementation -BMS in place : Acute kidney injury likely secondary to vasomotor nephropathy, urinary retention, Hypokalemia, hypo magnesium [place], hyperphosphatemia -FeNA 0.50 indicating prerenal sate -Nephrology consulted, appreciate recommendations -HD initiated 04/27 -HD per nephrology -Luther catheter placed for strict intake and output; changed 05/02 -Avoid nephrotoxic medications -Trend BMP, CK -Renally dose medications -renal US WNL per read -May need to be initiated on phosphate binder -Replete potassium and magnesium ID: Sepsis likely 2/2 UTI and PNA -ID consulted, appreciate recommendations -COVID-19 PCR negative -04/26/2021 sputum culture: Roselyn nonalbicans -04/29/2021 UA showed significant pyuria. -UC Roselyn-> fluconazole -Lumbar puncture with CSF showing 14 WBC, 324 RBC, glucose 161, protein 51. -Abx per ID: IV meropenem, renally adjusted + fluconazole -Trend WBC and fever curve -f/u cultures Endo: s/p HHNK, h/o hypothyroidism -Restarted home levothyroxine (50 mcg q day) -s/p Insulin drip x2 -SSI -TSH 6.04, T4 0.93 -Avoid hypoglycemia Heme: Anemia -HIT (-) -Trend CBC -Transfuse to hemoglobin less than 7 -s/p 1 unit PRBC -SCD to bilateral lower extremities while in bed -BUE dopplar US negative for DVT The high probability of a clinically significant, sudden or life threatening deterioration of the [multi] system(s) required my full and direct attention, intervention and personal management. The aggregate critical care time was [60] minutes. This time is in addition to time spent performing reported procedures but includes the following: [x] Data Review and interpretation [x] Patient assessment and monitoring of vital signs [x] Documentation [x] Medication orders and management Disposition Plan: icu Total Time Spent with Patient (Minutes): 60 History Interval history: This is a 80-year-old female who was [place] [facility] resident [facility] [place] with GERD, hypothyroidism, hyperlipidemia, schizophrenia and dementia presented to the emergency department on 04/20 after being found unresponsive by the staff via EMS. Per EMS glucose levels read as high. Work-up in the emergency department revealed severe hypernatremia, leukocytosis, metabolic acidosis, hyperchloremia, elevated BUN/creatinine, lactic acidosis and hyperglycemia. Patient was also hypothermic on admit. CT head showed findings suggestive of the possibility of normal pressure hydrocephalus. Patient was admitted to the hospitalist service with acute metabolic encephalopathy, diabetic hyperosmolar nonketotic state, acute kidney injury, hypernatremia, rhabdomyolysis and leukocytosis with consults to nephrology and [facility]. 04/21: Given 1 L LR bolus per nephrology and D5W increased to 125 mL's per hour, COVID-19 PCR pending, CXR and ABG ordered as patient was weaned from BiPAP to 3 L nasal cannula however was uptitrated back to nonrebreather. Will obtain blood cultures x2 given her leukocytosis and hypothermia. Replace potassium. Neurosurgery and neurology consulted and Luther catheter placed. 04/22: Improvement to sodium noted, slight hypokalemia which will be repleted, slight improvement to renal function, LFTs and rhabdomyolysis. Seen by neurosurgery today. Patient still making urine. transition to ssi and start TF as AG 15 04/23/2021: Given racemic epinephrine again due to stridor, continue IV fluids per nephrology, continue to trend sodium and BMP. 04/24/2021: 70/30 increased d/t hyperglycemia but recent BMP showed BG>300, gave additional 5 units IV insulin and ordered 5 units TID scheduled. However after IV insulin her PCOT was 400. Start on insulin gtt for hyperglycemia. Per RN she was not of IV D5 overnight d/t having one IV which was needed for emergency. Day RN did start dextrose. Remains with hyperglycemia. 04/25: Patient obtunded, withdrawal to pain only, on 50%Venti mask SPO2 abobe 92%. Plan to transition to SubQ insulin. Patient with mild hypernatremia this am, FWF added, will stop IVF for now. 04/26: Patient s/p intubation this am. Mentation is unchanged, plan for MRI brain today per NeuroSurg. Still hyperglycemic, hypernatremia improved, D5W D/katlyn, and basal insulin adjusted. 04/27: Bronch overnight. CXR with mild improvement. D/w Nephro plan for HD today, RIJ VasCath inserted. MRI on hold per [facility] patient is too unstable at this time, plan for possible spinal drained tomorrow to see if mentation will improve. 04/28: Tolerated HD overnight, only UF. Mentation remains the same. D/w CCM plan for possible large volume spinal tap under fluoroscopy today. Plan for possible HD again today. Continue FWF for elevated Na. 04/29: MARY overnight. Plan for spinal tap this am. febrile overnight with leukocy tosis, remains on pressors and more tachycardic now. Will panculture patient, and empiric IV was initiated. Remains hyperglycemic, basal insulin adjusted. 04/30: Patient's mentation remains unchanged post spinal tap. Plan for possible MRI brain next week. Afebrile overnight and leukocytosis improved, However, vent settings are going up and this am ABG with hypoxia, this am CXR with worsening opacities. Patient with 3+ pitting edema. Continue HD per Nephro. Continue current empiric IV abx, f/u on culture data, might need to get ID on board if worsen. 05/01: Mentation is unchanged, still on pressors. Febrile this am, continue IV abx, ID consulted. 3L out yesterday, plan for HD again tomorrow. Plt count improved, might need to restart AC, will D/w CCM. 05/02: No change in mentation and she is now noted to be decorticating to pain -> MRI brain ordered. Scheduled for HD today. ID consult completed. 05/03: Neurology consulted given MRI findings of multiple acute CVAs, LINCOLN ordered, EEG pending, started on aspirin and Lipitor. updated POA 05/04: Received hemodialysis today, will schedule for LINCOLN today however HD was ongoing at the time neurology will obtain MRA brain and neck then consider LINCOLN, increasing midodrine to aid in weaning Levophed. 05/05: MRA/MRV completed today, urine culture grew Roselyn and was started on fluconazole, LINCOLN tentatively scheduled for tomorrow. Resume tube feeding and n.p.o. at midnight. 05/06: Patient was scheduled for LINCOLN which was attempted however patient became hypotensive and the procedure was aborted. She received HD today. No acute events reported overnight. Tube feedings resumed. 05/07: No acute changes overnight. 05/08: May need permacath, goals of care to be discussed and will likely happen after neuro recommendations tomorrow since LINCOLN was unable to be completed. No acute events overnight. Replete mag, decreased midodrine. Hospitalist Physical - Physical exam Narrative exam: General appearance: Present: no acute distress, other (Intubated) - EENT Eyes: Present: PERRL, EOM intact ENT: dentition normal - Neck Neck: Present: normal ROM - Respiratory Respiratory effort: normal Respiratory: bilateral: diminished - Cardiovascular Rhythm: regular Heart Sounds: Present: S1 & S2 - Extremities Extremities: no ischemia, pulses intact, pulses symmetrical, normal temperature, normal color Peripheral Pulses: within normal limits - Abdominal General gastrointestinal: soft, non-tender, non-distended, normal bowel sounds - Integumentary Integumentary: Present: warm, dry - Psychiatric Psychiatric: other - Neurologic Neurologic: other (Pupils equal round reactive, opens eyes and attempts to track but does not follow commands.) - Allied Health Allied health notes reviewed: nursing, RT, social work - Constitutional Vitals: Temp Pulse Resp BP Pulse Ox 99.0 F 86 21 136/82 99 05/08/21 08:00 05/08/21 11:52 05/08/21 11:30 05/08/21 11:52 05/08/21 11:52 General appearance: Present: no acute distress, other (Intubated) HEART Score - HEART Score Troponin: Troponin T 0.021 ng/mL (0.00-0.029) 04/20/21 17:10 Results - Labs CBC & Chem 7: 05/08/21 05:12 05/08/21 05:12 Labs: Laboratory Last Values WBC 11.2 K/mm3 (4.5-11.0) H 05/08/21 05:12 RBC 3.01 M/mm3 (3.65-5.03) L 05/08/21 05:12 Hgb 8.2 gm/dl (10.1-14.3) L 05/08/21 05:12 Hct 25.5 % (30.3-42.9) L 05/08/21 05:12 MCV 85 fl (79-97) 05/08/21 05:12 MCH 27 pg (28-32) L 05/08/21 05:12 MCHC 32 % (30-34) 05/08/21 05:12 RDW 15.4 % (13.2-15.2) H 05/08/21 05:12 Plt Count 360 K/mm3 (140-440) 05/08/21 05:12 Add Manual Diff Complete 04/28/21 04:00 Total Counted 100 04/28/21 04:00 Seg Neutrophils % Oncologist 04/28/21 04:00 Seg Neuts % (Manual) 77.0 % (40.0-70.0) H 04/26/21 09:33 Band Neutrophils % 2.0 % 04/28/21 04:00 Lymphocytes % (Manual) 1.0 % (13.4-35.0) L 04/28/21 04:00 Reactive Lymphs % (Man) 0 % 04/28/21 04:00 Monocytes % (Manual) 1.0 % (0.0-7.3) 04/28/21 04:00 Eosinophils % (Manual) 3.0 % (0.0-4.3) 04/28/21 04:00 Metamyelocytes % 1.0 % 04/28/21 04:00 Myelocytes % 0 % 04/28/21 04:00 Promyelocytes % 0 % 04/28/21 04:00 Blast Cells % 0 % 04/28/21 04:00 Nucleated RBC % 4.0 % (0.0-0.9) H 04/28/21 04:00 Seg Neutrophils # Man 11.6 K/mm3 (1.8-7.7) H 04/28/21 04:00 Band Neutrophils # 0.3 K/mm3 04/28/21 04:00 Lymphocytes # (Manual) 0.1 K/mm3 (1.2-5.4) L 04/28/21 04:00 Abs React Lymphs (Man) 0.0 K/mm3 04/28/21 04:00 Monocytes # (Manual) 0.1 K/mm3 (0.0-0.8) 04/28/21 04:00 Eosinophils # (Manual) 0.4 K/mm3 (0.0-0.4) 04/28/21 04:00 Basophils # (Manual) 0.0 K/mm3 (0.0-0.1) 04/28/21 04:00 Metamyelocytes # 0.1 K/mm3 04/28/21 04:00 Myelocytes # 0.0 K/mm3 04/28/21 04:00 Promyelocytes # 0.0 K/mm3 04/28/21 04:00 Blast Cells # 0.0 K/mm3 04/28/21 04:00 WBC Morphology Not Reportable 04/28/21 04:00 Hypersegmented Neuts Not Reportable 04/28/21 04:00 Hyposegmented Neuts Not Reportable 04/28/21 04:00 Hypogranular Neuts Not Reportable 04/28/21 04:00 Smudge Cells Not Reportable 04/28/21 04:00 Toxic Granulation Not Reportable 04/28/21 04:00 Toxic Vacuolation Not Reportable 04/28/21 04:00 Dohle Bodies Not Reportable 04/28/21 04:00 Pelger-Huet Anomaly Not Reportable 04/28/21 04:00 Moni Rods Not Reportable 04/28/21 04:00 Platelet Estimate Consistent w auto 04/28/21 04:00 Clumped Platelets Not Reportable 04/28/21 04:00 Plt Clumps, EDTA Not Reportable 04/28/21 04:00 Large Platelets Few 04/28/21 04:00 Giant Platelets Not Reportable 04/28/21 04:00 Platelet Satelliting Not Reportable 04/28/21 04:00 Plt Morphology Comment Not Reportable 04/28/21 04:00 RBC Morphology Not Reportable 04/28/21 04:00 Dimorphic RBCs Not Reportable 04/28/21 04:00 Polychromasia Not Reportable 04/28/21 04:00 Hypochromasia Not Reportable 04/28/21 04:00 Poikilocytosis Not Reportable 04/28/21 04:00 Anisocytosis Not Reportable 04/28/21 04:00 Microcytosis Not Reportable 04/28/21 04:00 Macrocytosis Not Reportable 04/28/21 04:00 Spherocytes Not Reportable 04/28/21 04:00 Pappenheimer Bodies Not Reportable 04/28/21 04:00 Sickle Cells Not Reportable 04/28/21 04:00 Target Cells 1+ 04/28/21 04:00 Tear Drop Cells Not Reportable 04/28/21 04:00 Ovalocytes Not Reportable 04/28/21 04:00 Helmet Cells Not Reportable 04/28/21 04:00 Parkinson-[place] Bodies Not Reportable 04/28/21 04:00 Naselle Rings Not Reportable 04/28/21 04:00 Salvador Cells Not Reportable 04/28/21 04:00 Bite Cells Not Reportable 04/28/21 04:00 Crenated Cell Not Reportable 04/28/21 04:00 Elliptocytes Not Reportable 04/28/21 04:00 Acanthocytes (Spur) Not Reportable 04/28/21 04:00 Rouleaux Not Reportable 04/28/21 04:00 Hemoglobin C Crystals Not Reportable 04/28/21 04:00 Schistocytes Not Reportable 04/28/21 04:00 Malaria parasites Not Reportable 04/28/21 04:00 Herrera Bodies Not Reportable 04/28/21 04:00 Hem Pathologist Commnt No 04/28/21 04:00 PT 15.3 Sec. (12.2-14.9) H 04/28/21 05:00 INR 1.09 (0.87-1.13) 04/28/21 05:00 APTT 36.6 Sec. (24.2-36.6) 04/28/21 05:00 Heparin Anti-Xa, Unfract Negative (Negative) 04/24/21 17:29 ABG pH 7.487 (7.320-7.450) H 05/02/21 04:34 POC ABG pCO2 35.3 mmHg (32.0-48.0) 05/02/21 04:34 ABG pCO2 31.6 mm Hg 04/21/21 15:47 POC ABG pO2 78.6 mmHg (83-108) L 05/02/21 04:34 ABG pO2 168.1 mm Hg (80.0-90.0) H 04/21/21 15:47 POC ABG HCO3 26.1 05/02/21 04:34 ABG HCO3 23.3 mmol/L (20.0-26.0) 04/21/21 15:47 ABG O2 Saturation 96.0 (0-100) 05/02/21 04:34 ABG O2 Content 12.7 (0.0-44) 04/21/21 15:47 POC ABG Base Excess 2.9 05/02/21 04:34 ABG Base Excess 0.3 mmol/L (-2.0-3.0) 04/21/21 15:47 ABG Hemoglobin 11.5 (12.0-17.5) L 05/02/21 04:34 ABG Oxyhemoglobin 95.1 (94-98) 05/02/21 04:34 ABG Carboxyhemoglobin 1.0 % (0.0-5.0) 04/21/21 15:47 ABG Methemoglobin 0.3 (0.0-1.5) 05/02/21 04:34 ABG Sodium 138.6 mmol/L (136.0-145.0) 05/02/21 04:34 ABG Potassium 3.4 mmol/L (3.40-4.50) 05/02/21 04:34 ABG Chloride 105.0 mmol/L (98-107) 05/02/21 04:34 ABG Glucose 122 mg/dL (65-95) H 05/02/21 04:34 VBG pH 7.397 (7.320-7.420) 04/20/21 17:10 Oxyhemoglobin 97.5 % (95.0-99.0) 04/21/21 15:47 Carboxyhemoglobin 0.6 (0.5-1.5) 05/02/21 04:34 FiO2 100 % 04/21/21 15:47 FiO2 % 40.0 05/02/21 04:34 Sodium 145 mmol/L (137-145) 05/08/21 05:12 Potassium 3.4 mmol/L (3.6-5.0) L 05/08/21 05:12 Chloride 106.8 mmol/L (98-107) 05/08/21 05:12 Carbon Dioxide 28 mmol/L (22-30) 05/08/21 05:12 Anion Gap 14 mmol/L 05/08/21 05:12 BUN 37 mg/dL (7-17) H 05/08/21 05:12 Creatinine 2.1 mg/dL (0.6-1.2) H 05/08/21 05:12 Estimated GFR 27 ml/min 05/08/21 05:12 BUN/Creatinine Ratio 18 % 05/08/21 05:12 Glucose 160 mg/dL (65-100) H 05/08/21 05:12 POC Glucose 208 mg/dL (70-105) H 05/08/21 11:35 Hemoglobin A1c 17.1 % (4-6) H 04/22/21 15:55 Lactic Acid 1.90 mmol/L (0.7-2.0) 04/20/21 19:56 Calcium 8.3 mg/dL (8.4-10.2) L 05/08/21 05:12 Phosphorus 3.00 mg/dL (2.5-4.5) 05/08/21 05:12 Magnesium 1.70 mg/dL (1.7-2.3) 05/08/21 05:12 Iron 62 ug/dL (37-170) 04/24/21 17:29 TIBC 285 mcg/dL (250-450) 04/24/21 17:29 % Saturation 21.75 % 04/24/21 17:29 Transferrin 112 mg/dl (192-382) L 04/24/21 17:29 Total Bilirubin 0.20 mg/dL (0.1-1.2) 05/03/21 04:00 Direct Bilirubin < 0.2 mg/dL (0-0.2) 04/29/21 04:00 Indirect Bilirubin 0.1 mg/dL 04/29/21 04:00 AST 53 units/L (5-40) H 05/03/21 04:00 ALT 55 units/L (7-56) 05/03/21 04:00 Alkaline Phosphatase 149 units/L (35-129) H 05/03/21 04:00 Ammonia 29.0 umol/L (25-60) 04/20/21 17:10 Total Creatine Kinase 1000 units/L (30-135) H 04/27/21 07:43 CK-MB (CK-2) 36.0 ng/mL (0.0-4.0) H 04/20/21 17:10 CK-MB (CK-2) Rel Index 0.9 (0-4) 04/20/21 17:10 Troponin T 0.021 ng/mL (0.00-0.029) 04/20/21 17:10 Serum Total Protein 5.5 g/dL (6.1-8.1) L 04/22/21 08:59 Total Protein 5.2 g/dL (6.3-8.2) L 05/03/21 04:00 Albumin 1.5 g/dL (3.9-5) L 05/03/21 04:00 Albumin/Globulin Ratio 0.4 % 05/03/21 04:00 Nsgbw-4-Mptqrtjtp 0.6 g/dL (0.2-0.3) H 04/22/21 08:59 Idigz-7-Dwaddnulz 1.0 g/dL (0.5-0.9) H 04/22/21 08:59 Beta Globulins 0.3 g/dL (0.2-0.5) 04/22/21 08:59 Gamma Globulins 0.6 g/dL (0.8-1.7) L 04/22/21 08:59 Abnorm Protein Band 1 see below 04/22/21 08:59 PEP Interpretation see below H 04/22/21 08:59 Triglycerides 80 mg/dL (2-149) 05/04/21 04:48 Cholesterol 90 mg/dL (50-199) 05/04/21 04:48 LDL Cholesterol Direct 51 mg/dL (50-130) 05/04/21 04:48 HDL Cholesterol 24 mg/dL (40-59) L 05/04/21 04:48 Cholesterol/HDL Ratio 3.75 % 05/04/21 04:48 Serotonin Release Assay See scanned result 04/24/21 17:29 TSH 6.040 mlU/mL (0.270-4.200) H 04/20/21 17:10 Free T4 0.93 ng/dL (0.76-1.46) 04/20/21 17:10 Arterial Blood Glucose 122 mg/dL (65-95) H 05/02/21 04:34 Arterial Blood Ionized Calcium 4.5 mg/dL (4.6-5.3) L 04/28/21 05:18 Urine Color Yellow (Yellow) 04/29/21 13:30 Urine Turbidity Turbid (Clear) 04/29/21 13:30 Urine pH 5.0 (5.0-7.0) 04/29/21 13:30 Ur Specific [place] 1.010 (1.003-1.030) 04/29/21 13:30 Urine Protein 100 mg/dl mg/dL (Negative) 04/29/21 13:30 Urine Glucose (UA) 150 mg/dL (Negative) 04/29/21 13:30 Urine Ketones Neg mg/dL (Negative) 04/29/21 13:30 Urine Blood Lg (Negative) 04/29/21 13:30 Urine Nitrite Neg (Negative) 04/29/21 13:30 Urine Bilirubin Neg (Negative) 04/29/21 13:30 Urine Urobilinogen < 2.0 mg/dL (<2.0) 04/29/21 13:30 Ur Leukocyte Esterase Lg (Negative) 04/29/21 13:30 Urine WBC (Auto) > 182.0 /HPF (0.0-6.0) H 04/29/21 13:30 Urine RBC (Auto) > 182.0 /HPF (0.0-6.0) 04/29/21 13:30 U Epithel Cells (Auto) 4.0 /HPF (0-13.0) 04/29/21 13:30 Urine WBC Clumps 3+ /HPF 04/29/21 13:30 Urine Mucus Few /HPF 04/29/21 13:30 Urine Yeast (Budding) 3+ /HPF 04/29/21 13:30 Urine Osmolality 446 Mosm/kg 04/21/21 08:01 Urine Creatinine 44.3 mg/dL (0.1-20.0) H 04/21/21 08:01 Urine Sodium 71 mmol/L 04/21/21 08:01 Urine Total Protein 12 mg/dL (5-11.8) H 04/21/21 08:01 CSF Appearance Clear 04/29/21 11:45 CSF Color Colorless 04/29/21 11:45 CSF WBC 14 /mm3 (1-10) 04/29/21 11:45 CSF RBC 324 /mm3 (0-0) 04/29/21 11:45 CSF Seg Neutrophils 50.0 % (0-6) 04/29/21 11:45 CSF Lymphocytes % 40.0 % (40-80) 04/29/21 11:45 CSF Reactive Lymphs Not Reportable 04/29/21 11:45 CSF Monocytes % 10.0 % (15-45) 04/29/21 11:45 CSF Eosinophils % Not Reportable 04/29/21 11:45 CSF Basophils Not Reportable 04/29/21 11:45 CSF Pathologist Review C 04/29/21 11:45 CSF Glucose 161 mg/dL 04/29/21 11:45 CSF Total Protein 51 mg/dL 04/29/21 11:45 Plasma/Serum Alcohol < 0.01 % (0-0.07) 04/20/21 17:10 Heparin-induced Plt Ab Negative (Negative) 04/24/21 17:29 UF Heparin High Dose 1 % Release 04/24/21 17:29 EFE UFH Low Dose 0.1 0 % Release 04/24/21 17:29 EFE UFH Low Dose 0.5 0 % Release 04/24/21 17:29 Coronavirus (PCR) Negative (Negative) 04/21/21 Unknown Hepatitis A IgM Ab Non-reactive (NonReactive) 04/27/21 12:49 Hep Bs Antigen Nonreactive (Negative) 04/27/21 12:49 Hep B Core IgM Ab Non-reactive (NonReactive) 04/27/21 12:49 Hepatitis C Antibody Non-reactive (NonReactive) 04/27/21 12:49 Blood Type O POSITIVE 05/02/21 12:00 Antibody Screen Negative 05/02/21 12:00 Crossmatch See Detail 05/02/21 12:00 Luther/IV: Voiding Method Indwelling Catheter Active Medications - Current Medications Current Medications: Generic Name Dose Route Start Last Admin Trade Name Freq PRN Reason Stop Dose Admin Acetaminophen 650 mg 04/20/21 21:31 05/01/21 18:15 Acetaminophen 325 Mg Tab PO 650 mg Q4H PRN Administration Pain MILD(1-3)/Fever >100.5/TURCIOS Albumin Human 25 gm 05/06/21 16:06 05/06/21 16:21 Albumin Human 25% (25 Gm/100 Ml) Inj IV 25 gm MITCH PRN Administration Hypotension Albuterol 2.5 mg 04/22/21 14:49 04/23/21 15:18 Albuterol 2.5 Mg/3 Ml Nebu IH 2.5 mg Q4HRT PRN Administration Shortness Of Breath Lipase/Protease/Amylase 1 each 04/25/21 14:13 Lipase 10,500/Protease 25,000/Amylase 43,750 (Units) Dr Vasquez FEEDTUBE PRN PRN For Clogged Feeding Tube Aspirin 81 mg 05/04/21 10:00 05/08/21 09:14 Aspirin 81 Mg Tab Chew FEEDTUBE 81 mg QDAY AZIZA Administration Atorvastatin Calcium 40 mg 05/04/21 22:00 05/07/21 21:35 Atorvastatin 40 Mg Tab FEEDTUBE 40 mg QHS AZIZA Administration Dextrose 50 ml 04/24/21 11:36 Dextrose 50% In Water (25gm) 50 Ml Syringe IV Q30MIN PRN Hypoglycemia Protocol Famotidine 10 mg 04/27/21 10:00 05/08/21 09:14 Famotidine 10 Mg Tab FEEDTUBE 10 mg BID AZIZA Administration Hydralazine HCl 10 mg 04/24/21 21:22 Hydralazine 20 Mg/1 Ml Inj IV Q4HR PRN elevated BP Hydrophilic Ointment 1 applic 04/26/21 11:16 Lip Therapy Vaseline TP Q2HR PRN Dry Lips NORepinephrine/NS 8 MG-250 ML 8 mg in 250 mls @ 3.75 mls/hr 04/26/21 16:00 05/04/21 21:34 Norepinephrine/Ns 8 Mg-250 Ml (Double Conc) IV 0 mcg/min TITRATE AZIZA 0 mls/hr Titration Protocol 2 MCG/MIN MEROPENEM/NS 1 GRAM/100 ML 1 gram in 100 mls @ 100 mls/hr 05/03/21 15:00 05/07/21 15:44 Merrem/Ns 1 Gram/100 Ml IV 05/08/21 15:59 100 mls/hr 1500 AZIZA Administration Protocol Sodium Chloride 100 mls @ 999 mls/hr 05/04/21 11:30 Nacl 0.9% IV MITCH PRN Hypotension Fluconazole 200 mg in 100 mls @ 100 mls/hr 05/05/21 15:00 05/07/21 15:53 Diflucan IV 05/09/21 15:59 100 mls/hr Q24H AZIZA Administration Protocol Sodium Chloride 100 mls @ 999 mls/hr 05/06/21 16:06 Nacl 0.9% IV MITCH PRN Hypotension Insulin Human Lispro 0 unit 04/25/21 18:00 05/08/21 12:26 Insulin Lispro 100 Unit/Ml SUB-Q 4 unit Q6HR AZIZA Administration Protocol Levothyroxine Sodium 50 mcg 05/03/21 06:00 05/08/21 05:51 Levothyroxine 50 Mcg Tab PO 50 mcg DAILY@0600 AZIZA Administration Lorazepam 1 mg 04/26/21 11:15 04/30/21 23:00 Lorazepam 2 Mg/Ml Vial IV 1 mg Q4H PRN Administration Sedation Metoclopramide HCl 5 mg 04/20/21 21:31 Metoclopramide 10 Mg/2 Ml Inj IV Q6H PRN Nausea And Vomiting Midodrine 5 mg 05/08/21 09:00 05/08/21 12:27 Midodrine 5 Mg Tab PO Not Given TID@0800,1200,1600 AZIZA Multi-Ingred Cream/Lotion/Oil/Oint 1 applic 04/26/21 11:16 Mineral Oil/Petrolatum, White Ophth Oint 3.5 Gm OU Q4HR PRN Dry Eye(s) Ondansetron HCl 4 mg 04/20/21 21:31 Ondansetron 4 Mg/2 Ml Inj IV Q8H PRN Nausea And Vomiting Potassium Chloride 20 meq 05/08/21 09:00 05/08/21 09:14 Potassium Chloride 20 Meq Packet FEEDTUBE 05/08/21 13:00 20 meq ONCE@0900 AZIZA Administration Senna/Docusate Sodium 1 tab 04/26/21 22:00 05/08/21 09:14 Sennosides/Docusate Sodium 8.6/50 Mg Tab FEEDTUBE 1 tab BID AZIZA Administration Simple Syrup 15 ml 04/25/21 14:13 Simple Syrup 15 Ml FEEDTUBE PRN PRN Hypoglycemia Simple Syrup 30 ml 04/25/21 14:13 Simple Syrup 15 Ml FEEDTUBE PRN PRN Hypoglycemia Sodium Bicarbonate 325 mg 04/25/21 14:13 04/27/21 13:00 Sodium Bicarbonate 325 Mg Tab FEEDTUBE 325 mg PRN PRN Administration For Clogged Feeding Tube Sodium Bicarbonate 1,300 mg 04/27/21 14:00 05/08/21 08:59 Sodium Bicarbonate 650 Mg Tab PO 1,300 mg TID AZIZA Administration Sodium Chloride 10 ml 04/20/21 22:00 05/08/21 09:15 Sodium Chloride 0.9% 10 Ml Flush Syringe IV 10 ml BID AZIZA Administration Sodium Chloride 10 ml 04/20/21 21:31 Sodium Chloride 0.9% 10 Ml Flush Syringe IV PRN PRN LINE FLUSH Nutrition/Malnutrition Assess - Dietary Evaluation Nutrition/Malnutrition Findings: Nutrition Notes Start: 04/21/21 12:15 Freq: Status: Active Protocol: Document 05/04/21 16:15 JOSE (Rec: 05/04/21 16:26 JOSE [id number]) Nutrition Notes Initial or Follow up Brief Note Current Diet TF-Nepro w/CARBSTEADY @ 32 ml/ hr (since 04/29). Height 5 ft 2 in Weight 72.4 kg [place] Body Weight (kg) 50.00 BMI 29.2 Weight change and time frame No body weight change reported . Weight Status Overweight Subjective/Other Information RD consult for routine F/U on TF tolerance. TF continues as prescribed, therefore, well tolerated. Percent of energy/protein needs met: Prescribed TF-Nepro w/ CARBSTEADY @ 32 ml/hr provides for energy/protein needs (1, 389 Kcal/63 g) during LOS, 100 % Kcal; 72% AA. Current % PO Other Minimum of two criteria No #1 Nutrition Diagnosis Inadequate oral intake Diagnosis Progress(for reassessment Continues documentation) Nutrition Intervention Nutrition Support: Continue TF to Nepro w/ CARBSTEADY @ 32 ml/hr. Flush: 140 ml water Q 4 hr, or as per MD. % RDI: 100% Kcal; 72% AA. Goal #1 Provide at least 75% of energy /protein needs through Enteral Feeding during LOS. Follow-Up By: 05/11/21 Additional Comments Continue monitoring TF tolerance and BM. <TACHO RUBALCAVA - Last Filed: 05/14/21 12:52> Assessment and Plan Assessment and plan: I saw and evaluated the patient. Discussed with the nurse practitioner and agree with their findings and plan as documented in this note. Hospitalist Physical - Constitutional Vitals: Temp Pulse Resp BP Pulse Ox 99.9 F H 95 H 14 123/54 100 05/14/21 11:22 05/14/21 11:31 05/14/21 11:31 05/14/21 11:31 05/14/21 11:31 HEART Score - HEART Score Troponin: Troponin T 0.021 ng/mL (0.00-0.029) 04/20/21 17:10 Results - Labs CBC & Chem 7: 05/14/21 04:43 05/14/21 04:43 Labs: Laboratory Last Values WBC 10.1 K/mm3 (4.5-11.0) 05/14/21 04:43 RBC 3.02 M/mm3 (3.65-5.03) L 05/14/21 04:43 Hgb 8.3 gm/dl (10.1-14.3) L 05/14/21 04:43 Hct 25.6 % (30.3-42.9) L 05/14/21 04:43 MCV 85 fl (79-97) 05/14/21 04:43 MCH 28 pg (28-32) 05/14/21 04:43 MCHC 33 % (30-34) 05/14/21 04:43 RDW 15.5 % (13.2-15.2) H 05/14/21 04:43 Plt Count 482 K/mm3 (140-440) H 05/14/21 04:43 Add Manual Diff Complete 04/28/21 04:00 Total Counted 100 04/28/21 04:00 Seg Neutrophils % Oncologist 04/28/21 04:00 Seg Neuts % (Manual) 77.0 % (40.0-70.0) H 04/26/21 09:33 Band Neutrophils % 2.0 % 04/28/21 04:00 Lymphocytes % (Manual) 1.0 % (13.4-35.0) L 04/28/21 04:00 Reactive Lymphs % (Man) 0 % 04/28/21 04:00 Monocytes % (Manual) 1.0 % (0.0-7.3) 04/28/21 04:00 Eosinophils % (Manual) 3.0 % (0.0-4.3) 04/28/21 04:00 Metamyelocytes % 1.0 % 04/28/21 04:00 Myelocytes % 0 % 04/28/21 04:00 Promyelocytes % 0 % 04/28/21 04:00 Blast Cells % 0 % 04/28/21 04:00 Nucleated RBC % 4.0 % (0.0-0.9) H 04/28/21 04:00 Seg Neutrophils # Man 11.6 K/mm3 (1.8-7.7) H 04/28/21 04:00 Band Neutrophils # 0.3 K/mm3 04/28/21 04:00 Lymphocytes # (Manual) 0.1 K/mm3 (1.2-5.4) L 04/28/21 04:00 Abs React Lymphs (Man) 0.0 K/mm3 04/28/21 04:00 Monocytes # (Manual) 0.1 K/mm3 (0.0-0.8) 04/28/21 04:00 Eosinophils # (Manual) 0.4 K/mm3 (0.0-0.4) 04/28/21 04:00 Basophils # (Manual) 0.0 K/mm3 (0.0-0.1) 04/28/21 04:00 Metamyelocytes # 0.1 K/mm3 04/28/21 04:00 Myelocytes # 0.0 K/mm3 04/28/21 04:00 Promyelocytes # 0.0 K/mm3 04/28/21 04:00 Blast Cells # 0.0 K/mm3 04/28/21 04:00 WBC Morphology Not Reportable 04/28/21 04:00 Hypersegmented Neuts Not Reportable 04/28/21 04:00 Hyposegmented Neuts Not Reportable 04/28/21 04:00 Hypogranular Neuts Not Reportable 04/28/21 04:00 Smudge Cells Not Reportable 04/28/21 04:00 Toxic Granulation Not Reportable 04/28/21 04:00 Toxic Vacuolation Not Reportable 04/28/21 04:00 Dohle Bodies Not Reportable 04/28/21 04:00 Pelger-Huet Anomaly Not Reportable 04/28/21 04:00 Moni Rods Not Reportable 04/28/21 04:00 Platelet Estimate Consistent w auto 04/28/21 04:00 Clumped Platelets Not Reportable 04/28/21 04:00 Plt Clumps, EDTA Not Reportable 04/28/21 04:00 Large Platelets Few 04/28/21 04:00 Giant Platelets Not Reportable 04/28/21 04:00 Platelet Satelliting Not Reportable 04/28/21 04:00 Plt Morphology Comment Not Reportable 04/28/21 04:00 RBC Morphology Not Reportable 04/28/21 04:00 Dimorphic RBCs Not Reportable 04/28/21 04:00 Polychromasia Not Reportable 04/28/21 04:00 Hypochromasia Not Reportable 04/28/21 04:00 Poikilocytosis Not Reportable 04/28/21 04:00 Anisocytosis Not Reportable 04/28/21 04:00 Microcytosis Not Reportable 04/28/21 04:00 Macrocytosis Not Reportable 04/28/21 04:00 Spherocytes Not Reportable 04/28/21 04:00 Pappenheimer Bodies Not Reportable 04/28/21 04:00 Sickle Cells Not Reportable 04/28/21 04:00 Target Cells 1+ 04/28/21 04:00 Tear Drop Cells Not Reportable 04/28/21 04:00 Ovalocytes Not Reportable 04/28/21 04:00 Helmet Cells Not Reportable 04/28/21 04:00 Parkinson-[place] Bodies Not Reportable 04/28/21 04:00 Naselle Rings Not Reportable 04/28/21 04:00 Universal Cells Not Reportable 04/28/21 04:00 Bite Cells Not Reportable 04/28/21 04:00 Crenated Cell Not Reportable 04/28/21 04:00 Elliptocytes Not Reportable 04/28/21 04:00 Acanthocytes (Spur) Not Reportable 04/28/21 04:00 Rouleaux Not Reportable 04/28/21 04:00 Hemoglobin C Crystals Not Reportable 04/28/21 04:00 Schistocytes Not Reportable 04/28/21 04:00 Malaria parasites Not Reportable 04/28/21 04:00 Herrera Bodies Not Reportable 04/28/21 04:00 Hem Pathologist Commnt No 04/28/21 04:00 PT 14.7 Sec. (12.2-14.9) 05/13/21 04:24 INR 1.04 (0.87-1.13) 05/13/21 04:24 APTT 36.6 Sec. (24.2-36.6) 04/28/21 05:00 Heparin Anti-Xa, Unfract Negative (Negative) 04/24/21 17:29 ABG pH 7.487 (7.320-7.450) H 05/02/21 04:34 POC ABG pCO2 35.3 mmHg (32.0-48.0) 05/02/21 04:34 ABG pCO2 31.6 mm Hg 04/21/21 15:47 POC ABG pO2 78.6 mmHg (83-108) L 05/02/21 04:34 ABG pO2 168.1 mm Hg (80.0-90.0) H 04/21/21 15:47 POC ABG HCO3 26.1 05/02/21 04:34 ABG HCO3 23.3 mmol/L (20.0-26.0) 04/21/21 15:47 ABG O2 Saturation 96.0 (0-100) 05/02/21 04:34 ABG O2 Content 12.7 (0.0-44) 04/21/21 15:47 POC ABG Base Excess 2.9 05/02/21 04:34 ABG Base Excess 0.3 mmol/L (-2.0-3.0) 04/21/21 15:47 ABG Hemoglobin 11.5 (12.0-17.5) L 05/02/21 04:34 ABG Oxyhemoglobin 95.1 (94-98) 05/02/21 04:34 ABG Carboxyhemoglobin 1.0 % (0.0-5.0) 04/21/21 15:47 ABG Methemoglobin 0.3 (0.0-1.5) 05/02/21 04:34 ABG Sodium 138.6 mmol/L (136.0-145.0) 05/02/21 04:34 ABG Potassium 3.4 mmol/L (3.40-4.50) 05/02/21 04:34 ABG Chloride 105.0 mmol/L (98-107) 05/02/21 04:34 ABG Glucose 122 mg/dL (65-95) H 05/02/21 04:34 VBG pH 7.397 (7.320-7.420) 04/20/21 17:10 Oxyhemoglobin 97.5 % (95.0-99.0) 04/21/21 15:47 Carboxyhemoglobin 0.6 (0.5-1.5) 05/02/21 04:34 FiO2 100 % 04/21/21 15:47 FiO2 % 40.0 05/02/21 04:34 Sodium 138 mmol/L (137-145) 05/14/21 04:43 Potassium 4.0 mmol/L (3.6-5.0) 05/14/21 04:43 Chloride 104.1 mmol/L (98-107) 05/14/21 04:43 Carbon Dioxide 23 mmol/L (22-30) 05/14/21 04:43 Anion Gap 15 mmol/L 05/14/21 04:43 BUN 29 mg/dL (7-17) H 05/14/21 04:43 Creatinine 1.2 mg/dL (0.6-1.2) 05/14/21 04:43 Estimated GFR 52 ml/min 05/14/21 04:43 BUN/Creatinine Ratio 24 % 05/14/21 04:43 Glucose 192 mg/dL (65-100) H 05/14/21 04:43 POC Glucose 215 mg/dL (70-105) H 05/14/21 10:59 Hemoglobin A1c 17.1 % (4-6) H 04/22/21 15:55 Lactic Acid 1.90 mmol/L (0.7-2.0) 04/20/21 19:56 Calcium 8.1 mg/dL (8.4-10.2) L 05/14/21 04:43 Phosphorus 3.20 mg/dL (2.5-4.5) 05/14/21 04:43 Magnesium 2.20 mg/dL (1.7-2.3) 05/14/21 04:43 Iron 62 ug/dL (37-170) 04/24/21 17:29 TIBC 285 mcg/dL (250-450) 04/24/21 17:29 % Saturation 21.75 % 04/24/21 17:29 Transferrin 112 mg/dl (192-382) L 04/24/21 17:29 Total Bilirubin 0.20 mg/dL (0.1-1.2) 05/03/21 04:00 Direct Bilirubin < 0.2 mg/dL (0-0.2) 04/29/21 04:00 Indirect Bilirubin 0.1 mg/dL 04/29/21 04:00 AST 53 units/L (5-40) H 05/03/21 04:00 ALT 55 units/L (7-56) 05/03/21 04:00 Alkaline Phosphatase 149 units/L (35-129) H 05/03/21 04:00 Ammonia 29.0 umol/L (25-60) 04/20/21 17:10 Total Creatine Kinase 1000 units/L (30-135) H 04/27/21 07:43 CK-MB (CK-2) 36.0 ng/mL (0.0-4.0) H 04/20/21 17:10 CK-MB (CK-2) Rel Index 0.9 (0-4) 04/20/21 17:10 Troponin T 0.021 ng/mL (0.00-0.029) 04/20/21 17:10 Serum Total Protein 5.5 g/dL (6.1-8.1) L 04/22/21 08:59 Total Protein 5.2 g/dL (6.3-8.2) L 05/03/21 04:00 Albumin 1.5 g/dL (3.9-5) L 05/03/21 04:00 Albumin/Globulin Ratio 0.4 % 05/03/21 04:00 Ejbin-1-Vvhbeynei 0.6 g/dL (0.2-0.3) H 04/22/21 08:59 Qsjmj-4-Dcbpqefzh 1.0 g/dL (0.5-0.9) H 04/22/21 08:59 Beta Globulins 0.3 g/dL (0.2-0.5) 04/22/21 08:59 Gamma Globulins 0.6 g/dL (0.8-1.7) L 04/22/21 08:59 Abnorm Protein Band 1 see below 04/22/21 08:59 PEP Interpretation see below H 04/22/21 08:59 Triglycerides 80 mg/dL (2-149) 05/04/21 04:48 Cholesterol 90 mg/dL (50-199) 05/04/21 04:48 LDL Cholesterol Direct 51 mg/dL (50-130) 05/04/21 04:48 HDL Cholesterol 24 mg/dL (40-59) L 05/04/21 04:48 Cholesterol/HDL Ratio 3.75 % 05/04/21 04:48 Serotonin Release Assay See scanned result 04/24/21 17:29 TSH 6.040 mlU/mL (0.270-4.200) H 04/20/21 17:10 Free T4 0.93 ng/dL (0.76-1.46) 04/20/21 17:10 Arterial Blood Glucose 122 mg/dL (65-95) H 05/02/21 04:34 Arterial Blood Ionized Calcium 4.5 mg/dL (4.6-5.3) L 04/28/21 05:18 Urine Color Yellow (Yellow) 04/29/21 13:30 Urine Turbidity Turbid (Clear) 04/29/21 13:30 Urine pH 5.0 (5.0-7.0) 04/29/21 13:30 Ur Specific [place] 1.010 (1.003-1.030) 04/29/21 13:30 Urine Protein 100 mg/dl mg/dL (Negative) 04/29/21 13:30 Urine Glucose (UA) 150 mg/dL (Negative) 04/29/21 13:30 Urine Ketones Neg mg/dL (Negative) 04/29/21 13:30 Urine Blood Lg (Negative) 04/29/21 13:30 Urine Nitrite Neg (Negative) 04/29/21 13:30 Urine Bilirubin Neg (Negative) 04/29/21 13:30 Urine Urobilinogen < 2.0 mg/dL (<2.0) 04/29/21 13:30 Ur Leukocyte Esterase Lg (Negative) 04/29/21 13:30 Urine WBC (Auto) > 182.0 /HPF (0.0-6.0) H 04/29/21 13:30 Urine RBC (Auto) > 182.0 /HPF (0.0-6.0) 04/29/21 13:30 U Epithel Cells (Auto) 4.0 /HPF (0-13.0) 04/29/21 13:30 Urine WBC Clumps 3+ /HPF 04/29/21 13:30 Urine Mucus Few /HPF 04/29/21 13:30 Urine Yeast (Budding) 3+ /HPF 04/29/21 13:30 Urine Osmolality 446 Mosm/kg 04/21/21 08:01 Urine Total Volume 1700 ml 05/08/21 09:34 Urine Creatinine 56.0 mg/dL (0.1-20.0) H 05/08/21 09:34 Ur Creatinine 24 Hour 1.0 (0.8-2.8) 05/08/21 09:34 Urine Sodium 71 mmol/L 04/21/21 08:01 Urine Total Protein 12 mg/dL (5-11.8) H 04/21/21 08:01 CSF Appearance Clear 04/29/21 11:45 CSF Color Colorless 04/29/21 11:45 CSF WBC 14 /mm3 (1-10) 04/29/21 11:45 CSF RBC 324 /mm3 (0-0) 04/29/21 11:45 CSF Seg Neutrophils 50.0 % (0-6) 04/29/21 11:45 CSF Lymphocytes % 40.0 % (40-80) 04/29/21 11:45 CSF Reactive Lymphs Not Reportable 04/29/21 11:45 CSF Monocytes % 10.0 % (15-45) 04/29/21 11:45 CSF Eosinophils % Not Reportable 04/29/21 11:45 CSF Basophils Not Reportable 04/29/21 11:45 CSF Pathologist Review C 04/29/21 11:45 CSF Glucose 161 mg/dL 04/29/21 11:45 CSF Total Protein 51 mg/dL 04/29/21 11:45 Plasma/Serum Alcohol < 0.01 % (0-0.07) 04/20/21 17:10 Heparin-induced Plt Ab Negative (Negative) 04/24/21 17:29 UF Heparin High Dose 1 % Release 04/24/21 17:29 EFE UFH Low Dose 0.1 0 % Release 04/24/21 17:29 EFE UFH Low Dose 0.5 0 % Release 04/24/21 17:29 Coronavirus (PCR) Negative (Negative) 04/21/21 Unknown Hepatitis A IgM Ab Non-reactive (NonReactive) 04/27/21 12:49 Hep Bs Antigen Nonreactive (Negative) 04/27/21 12:49 Hep B Core IgM Ab Non-reactive (NonReactive) 04/27/21 12:49 Hepatitis C Antibody Non-reactive (NonReactive) 04/27/21 12:49 Blood Type O POSITIVE 05/02/21 12:00 Antibody Screen Negative 05/02/21 12:00 Crossmatch See Detail 05/02/21 12:00 Microbiology: Microbiology 05/02/21 Unknown Urine,Catheterized - Indwelling Catheter Urine Culture - Final Roselyn Tropicalis Luther/IV: Voiding Method Indwelling Catheter Active Medications - Current Medications Current Medications: Generic Name Dose Route Start Last Admin Trade Name Freq PRN Reason Stop Dose Admin Acetaminophen 650 mg 04/20/21 21:31 05/14/21 09:50 Acetaminophen 325 Mg Tab PO 650 mg Q4H PRN Administration Pain MILD(1-3)/Fever >100.5/TURCIOS Albumin Human 25 gm 05/06/21 16:06 05/06/21 16:21 Albumin Human 25% (25 Gm/100 Ml) Inj IV 25 gm MITCH PRN Administration Hypotension Albuterol 2.5 mg 04/22/21 14:49 04/23/21 15:18 Albuterol 2.5 Mg/3 Ml Nebu IH 2.5 mg Q4HRT PRN Administration Shortness Of Breath Amlodipine Besylate 5 mg 05/12/21 10:00 05/14/21 09:49 Amlodipine 5 Mg Tab PO 5 mg QDAY AZIZA Administration Lipase/Protease/Amylase 1 each 04/25/21 14:13 Lipase 10,500/Protease 25,000/Amylase 43,750 (Units) Dr Vasquez FEEDTUBE PRN PRN For Clogged Feeding Tube Aspirin 81 mg 05/04/21 10:00 05/14/21 09:50 Aspirin 81 Mg Tab Chew FEEDTUBE 81 mg QDAY AZIZA Administration Atorvastatin Calcium 40 mg 05/04/21 22:00 05/13/21 21:39 Atorvastatin 40 Mg Tab FEEDTUBE 40 mg QHS AZIZA Administration Dextrose 50 ml 04/24/21 11:36 Dextrose 50% In Water (25gm) 50 Ml Syringe IV Q30MIN PRN Hypoglycemia Protocol Famotidine 10 mg 04/27/21 10:00 05/14/21 09:50 Famotidine 10 Mg Tab FEEDTUBE 10 mg BID AZIZA Administration Heparin Sodium (Porcine) 5,000 unit 05/10/21 22:00 05/14/21 09:50 Heparin 5,000 Unit/1 Ml Vial SUB-Q 5,000 unit Q12HR AZIZA Administration Hydrophilic Ointment 1 applic 04/26/21 11:16 Lip Therapy Vaseline TP Q2HR PRN Dry Lips Sodium Chloride 1,000 mls @ 100 mls/hr 05/14/21 08:30 05/14/21 09:53 Nacl 0.9% 1000 Ml IV 05/14/21 18:29 100 mls/hr DIRECT AZIZA Administration Insulin Human Lispro 0 unit 04/25/21 18:00 05/14/21 12:05 Insulin Lispro 100 Unit/Ml SUB-Q 4 unit Q6HR AZIZA Administration Protocol Labetalol HCl 20 mg 05/12/21 11:34 05/12/21 21:35 Labetalol 20 Mg/4 Ml Inj IV 20 mg Q4H PRN Administration SBP >/=170 Levothyroxine Sodium 50 mcg 05/03/21 06:00 05/14/21 05:27 Levothyroxine 50 Mcg Tab PO 50 mcg DAILY@0600 AZIZA Administration Lorazepam 1 mg 04/26/21 11:15 05/12/21 16:27 Lorazepam 2 Mg/Ml Vial IV 1 mg Q4H PRN Administration Sedation Metoclopramide HCl 5 mg 04/20/21 21:31 Metoclopramide 10 Mg/2 Ml Inj IV Q6H PRN Nausea And Vomiting Multi-Ingred Cream/Lotion/Oil/Oint 1 applic 04/26/21 11:16 Mineral Oil/Petrolatum, White Ophth Oint 3.5 Gm OU Q4HR PRN Dry Eye(s) Ondansetron HCl 4 mg 04/20/21 21:31 Ondansetron 4 Mg/2 Ml Inj IV Q8H PRN Nausea And Vomiting Senna/Docusate Sodium 1 tab 04/26/21 22:00 05/14/21 09:50 Sennosides/Docusate Sodium 8.6/50 Mg Tab FEEDTUBE 1 tab BID AZIZA Administration Simple Syrup 15 ml 04/25/21 14:13 Simple Syrup 15 Ml FEEDTUBE PRN PRN Hypoglycemia Simple Syrup 30 ml 04/25/21 14:13 Simple Syrup 15 Ml FEEDTUBE PRN PRN Hypoglycemia Sodium Bicarbonate 325 mg 04/25/21 14:13 04/27/21 13:00 Sodium Bicarbonate 325 Mg Tab FEEDTUBE 325 mg PRN PRN Administration For Clogged Feeding Tube Sodium Bicarbonate 1,300 mg 04/27/21 14:00 05/14/21 08:48 Sodium Bicarbonate 650 Mg Tab PO 1,300 mg TID AZIZA Administration Sodium Chloride 10 ml 04/20/21 22:00 05/14/21 09:51 Sodium Chloride 0.9% 10 Ml Flush Syringe IV 10 ml BID AZIZA Administration Sodium Chloride 10 ml 04/20/21 21:31 Sodium Chloride 0.9% 10 Ml Flush Syringe IV PRN PRN LINE FLUSH Nutrition/Malnutrition Assess - Dietary Evaluation Nutrition/Malnutrition Findings: Nutrition Notes Start: 04/21/21 12:15 Freq: Status: Active Protocol: Document 05/13/21 15:36 TAMMY (Rec: 05/13/21 15:47 TAMMY [id number]) Nutrition Notes Initial or Follow up Reassessment Current Diagnosis Sepsis,Respiratory Failure, Stroke Other Pertinent Diagnosis Acute metabolic encephalopathy , pneu, UTI Current Diet NPO Labs/Tests BUN 30 Mg 1.6 Pertinent Medications Mag sulfate x 1 dose Height 5 ft 2 in Weight 72.4 kg [place] Body Weight (kg) 50.00 BMI 29.2 Weight Status Overweight Subjective/Other Information Pt remains on vent support. TF off; pt scheduled for trach and PEG placement today. Unable to place PEG sec to suspected anatomical abnormality. Interventional radiology consulted for PEG placement. Per nephrology, SYED resolving; no indication for HD as VasCath has been removed. Minimum of two criteria No #1 Nutrition Diagnosis Inadequate oral intake Diagnosis Progress(for reassessment Continues documentation) Is patient on ventilator? Yes Is Patient Ambulatory and/or Out of Bed No REE-(Wesson-St. Jeor-confined to bed) 8307.046 Calculation Used for Recommendations Wesson-St Jeor Additional Notes Pro needs 1.2-2g/k-145g/ day Fluid needs 1ml/kcal Nutrition Intervention Nutrition Support: When feasible, resume TF, but change formula to Glucerna 1.2 at 50ml/hr with 80ml water flush q4h. Goal #1 Resume TF to meet nutrient needs Follow-Up By: 05/16/21 Additional Comments F/U: PEG placement, TF restart with Glucerna 1.2, vent status
[2021-05-08] MEDS: MEROPENEM/NS 1 GRAM/100 ML 1 GRAM/100 ML BAG IV SCH (15:53)
[2021-05-08] MEDS: FLUCONAZOLE 200 MG 200 MG/100 ML BAG IV SCH (15:53)
[2021-05-09] MEDS: INSULIN LISPRO 100 UNIT/ML SUB-Q SCH ×4 (00:11→17:01)
[2021-05-09 05:58] LABS: Hematocrit 25.4 % (30.3-42.9); Hemoglobin 8.1 gm/dl (10.1-14.3); Mean Corpuscular HGB Conc 32 % (30-34); Mean Corpuscular Volume 85 fl (79-97); Platelet Count 410 K/mm3 (140-440); Red Blood Count 2.98 M/mm3 (3.65-5.03); Red Cell Distribution Width 15.4 % (13.2-15.2)
[2021-05-09] MEDS: LEVOTHYROXINE 50 MCG TAB PO SCH (06:04)
[2021-05-09 06:17] LABS: Calcium 8.5 mg/dL (8.4-10.2)
--- NOTE | 2021-05-09 08:34 | Progress Note ---
Assessment and Plan Assessment and Plan Assessment and plan: This is a 80-year-old female half-way resident with GERD, hypothyroidism, hyperlipidemia, schizophrenia and dementia admitted with hypothermia, hyponatrem ia, hypokalemia, lactic acidosis, acute kidney injury, rhabdomyolysis and hyperosmolar nonketotic state. 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 -start ASA 81 mg and lipitor 40 mg -LDL is #51 -cardiac monitering R/O AF -SQ heparine # Hypotension -MAP goal above 65 -Blood pressure monitoring per protocol -Home amlodipine 10 mg on hold -on midodrin 5 mg tid # Acute hypoxic respiratory failure -s/p Bipap and ventimask -s/p bronchoscopy on 04/26 -Intubated 04/26 with 7.5 oett at 22 lips -Repeat CXR shows increased interstitial prominence of densities in bilateral lungs # Hypoalbuminemia, transaminitis -Presented with transaminitis -Trend LFTs # Severe hypernatremia (resolved), hyperchloremia (resolved), acute kidney injury likely secondary to vasomotor nephropathy, urinary retention, rhabdomyolysis (resolved) -HD initiated 04/27 -Avoid nephrotoxic medications -Trend BMP, CK -Renally dose medications -renal US WNL per read # Sepsis likely 2/2 UTI and PNA -COVID-19 PCR negative -04/26/2021 sputum culture: Roselyn nonalbicans -04/29/2021 UA showed significant pyuria. -Lumbar puncture with CSF showing 14 WBC, 324 RBC, glucose 161, protein 51. -Abx per ID: IV meropenem, renally adjusted -Exchange Luther, urine culture ordered -Trend WBC and fever curve -f/u cultures s/p HHNK, h/o hypothyroidism -Restart home levothyroxine (50 mcg q day) -s/p Insulin drip x2 -SSI, long acting insulin (adjust as needed) -TSH 6.04, T4 0.93 -Avoid hypoglycemia # Leukocytosis, thrombocytopenia (resolved), anemia -HIT (-) -Trend CBC -Transfuse to hemoglobin less than 7 -hbg 6.9 -transfuse one unit PRBC -SCD to bilateral lower extremities while in bed -BUE dopplar US negative for DVT PLAN 1-Reconsider LINCOLN when more stable 2- cardiac monitering r/o AF paroxysmal 3- ASA 81 mg and Lipitor 40 mg 4- EEG when possible 5- Avoid sedation 6- avoid Hypotension 7- Pt therapy will follow as needed Subjective Date of service: 05/09/21 Principal diagnosis: Acute respiratory failure Interval history: she is more interactive, move upper limbs to stimulation not follow command , open eyes to calling her name ,move left side with right side weakness MRA brain and neck is remarkable for intracranial ICA at cavernous portion stenosis -LINCOLN attempted vital was unsatable she is off sedation blcs negative Bun/Cr#58/3.4--43/2.7--37/1.8 EEG still pending wbs#12.8 LDL#51 Objective - Vital Sign Vital Signs - 12hr 05/08/21 05/08/21 05/08/21 20:31 20:34 21:00 Temperature Pulse Rate 96 H 89 87 Respiratory 21 15 Rate Blood Pressure 158/74 164/80 O2 Sat by Pulse 99 99 Oximetry 05/08/21 05/08/21 05/08/21 21:30 21:33 22:00 Temperature Pulse Rate 84 84 79 Respiratory 14 14 14 Rate Blood Pressure 160/79 160/79 159/74 O2 Sat by Pulse 99 99 98 Oximetry 05/08/21 05/08/21 05/08/21 22:30 23:00 23:30 Temperature Pulse Rate 92 H 91 H 84 Respiratory 22 19 14 Rate Blood Pressure 166/85 167/82 152/74 O2 Sat by Pulse 99 99 98 Oximetry 05/08/21 05/09/21 05/09/21 23:44 00:00 00:30 Temperature 99.7 F H Pulse Rate 85 91 H 92 H Respiratory 14 22 Rate Blood Pressure 152/74 146/84 160/75 O2 Sat by Pulse 98 98 98 Oximetry 05/09/21 05/09/21 05/09/21 01:00 01:30 02:01 Temperature Pulse Rate 95 H 93 H 81 Respiratory 15 14 13 Rate Blood Pressure 163/79 170/71 131/48 O2 Sat by Pulse 98 98 97 Oximetry 05/09/21 05/09/21 05/09/21 02:30 03:00 03:30 Temperature Pulse Rate 83 85 90 Respiratory 14 14 18 Rate Blood Pressure 143/61 152/65 159/84 O2 Sat by Pulse 98 98 98 Oximetry 05/09/21 05/09/21 05/09/21 03:40 04:00 04:30 Temperature 98.8 F Pulse Rate 87 103 H Respiratory 12 13 Rate Blood Pressure 174/78 166/101 O2 Sat by Pulse 99 98 Oximetry 05/09/21 05/09/21 05/09/21 05:00 05:30 06:02 Temperature Pulse Rate 81 91 H 92 H Respiratory 16 14 18 Rate Blood Pressure 143/71 174/78 131/48 O2 Sat by Pulse 98 99 98 Oximetry 05/09/21 05/09/21 07:34 07:41 Temperature 99.1 F Pulse Rate 83 Respiratory Rate Blood Pressure 141/63 O2 Sat by Pulse 98 Oximetry - General Apperance Constitutional: comfortable - EENT EENT: PERRL, mucous membranes moist - Respiratory Respiratory: lungs clear, rhonchi - Cardiovascular Cardiovascular: regular rate, normal S1, normal S2 Extremities: no peripheral edema bilat, no clubbing, cyanosis - Gastrointestinal Gastrointestinal: normoactive bowel sounds - Integumentary Integumentary: normal - Neurologic Cranial nerve examination: PERRL, EOMI, facial droop Speech examination: other (intubated, not sedated) Detailed motor examination: other (move left upper may be slightly right finger movment , planter down bilateral.) - Laboratory Findings CBC and BMP: 05/09/21 05:30 05/09/21 05:30 Abnormal Lab Findings: Abnormal Labs 04/20/21 04/20/21 04/20/21 17:10 17:10 17:10 WBC 17.4 H RBC 5.19 H Hgb Hct 46.8 H MCH 27 L RDW 17.2 H Plt Count Seg Neuts % (Manual) 98.0 H Lymphocytes % (Manual) 2.0 L Nucleated RBC % 1.0 H Seg Neutrophils # Man 17.1 H Lymphocytes # (Manual) 0.3 L PT ABG pH POC ABG pCO2 POC ABG pO2 ABG pO2 ABG O2 Saturation ABG Base Excess ABG Hemoglobin ABG Oxyhemoglobin ABG Potassium ABG Chloride ABG Glucose Oxyhemoglobin Carboxyhemoglobin Sodium 173 H* Potassium Chloride 132.9 H Carbon Dioxide 17 L BUN 120 H Creatinine 4.2 H Glucose 762 H* POC Glucose Hemoglobin A1c Lactic Acid Calcium Phosphorus Magnesium 3.80 H Transferrin AST 72 H ALT 63 H Alkaline Phosphatase 148 H Total Creatine Kinase 3697 H CK-MB (CK-2) 36.0 H Serum Total Protein Total Protein Albumin 2.2 L Bufgf-0-Whjhfrinb Yiduc-9-Ohemvgnsp Gamma Globulins PEP Interpretation HDL Cholesterol TSH Arterial Blood Glucose Arterial Blood Ionized Calcium Urine WBC (Auto) Urine Creatinine Urine Total Protein Crossmatch 04/20/21 04/20/21 04/20/21 17:10 17:10 18:55 WBC RBC Hgb Hct MCH RDW Plt Count Seg Neuts % (Manual) Lymphocytes % (Manual) Nucleated RBC % Seg Neutrophils # Man Lymphocytes # (Manual) PT ABG pH POC ABG pCO2 POC ABG pO2 ABG pO2 ABG O2 Saturation ABG Base Excess ABG Hemoglobin ABG Oxyhemoglobin ABG Potassium ABG Chloride ABG Glucose Oxyhemoglobin Carboxyhemoglobin Sodium Potassium Chloride Carbon Dioxide BUN Creatinine Glucose POC Glucose 574 H Hemoglobin A1c Lactic Acid 2.60 H* Calcium Phosphorus Magnesium Transferrin AST ALT Alkaline Phosphatase Total Creatine Kinase CK-MB (CK-2) Serum Total Protein Total Protein Albumin Uxbws-9-Dnwfniibg Thtyg-6-Ncoimonxe Gamma Globulins PEP Interpretation HDL Cholesterol TSH 6.040 H Arterial Blood Glucose Arterial Blood Ionized Calcium Urine WBC (Auto) Urine Creatinine Urine Total Protein Crossmatch 04/20/21 04/20/21 04/20/21 22:12 22:58 22:58 WBC RBC Hgb Hct MCH RDW Plt Count Seg Neuts % (Manual) Lymphocytes % (Manual) Nucleated RBC % Seg Neutrophils # Man Lymphocytes # (Manual) PT ABG pH POC ABG pCO2 POC ABG pO2 ABG pO2 ABG O2 Saturation ABG Base Excess ABG Hemoglobin ABG Oxyhemoglobin ABG Potassium ABG Chloride ABG Glucose Oxyhemoglobin Carboxyhemoglobin Sodium 172 H* Potassium 3.2 L Chloride 134.2 H Carbon Dioxide 17 L BUN 112 H Creatinine 3.8 H Glucose 803 H* POC Glucose 554 H Hemoglobin A1c Lactic Acid Calcium 8.3 L Phosphorus Magnesium 3.50 H Transferrin AST ALT Alkaline Phosphatase Total Creatine Kinase CK-MB (CK-2) Serum Total Protein Total Protein Albumin Xgkgp-3-Zqraefsuy Xygqp-3-Dlmocwpqa Gamma Globulins PEP Interpretation HDL Cholesterol TSH Arterial Blood Glucose Arterial Blood Ionized Calcium Urine WBC (Auto) Urine Creatinine Urine Total Protein Crossmatch 04/21/21 04/21/21 04/21/21 00:14 00:22 02:01 WBC RBC Hgb Hct MCH RDW Plt Count Seg Neuts % (Manual) Lymphocytes % (Manual) Nucleated RBC % Seg Neutrophils # Man Lymphocytes # (Manual) PT ABG pH POC ABG pCO2 POC ABG pO2 ABG pO2 ABG O2 Saturation ABG Base Excess ABG Hemoglobin ABG Oxyhemoglobin ABG Potassium ABG Chloride ABG Glucose Oxyhemoglobin Carboxyhemoglobin Sodium 176 H* 175 H* Potassium 2.9 L* 3.0 L Chloride 139.9 H 136.2 H Carbon Dioxide 17 L 19 L BUN 113 H 112 H Creatinine 3.9 H 3.6 H Glucose 729 H* 582 H* POC Glucose > 600 H Hemoglobin A1c Lactic Acid Calcium Phosphorus Magnesium Transferrin AST ALT Alkaline Phosphatase Total Creatine Kinase CK-MB (CK-2) Serum Total Protein Total Protein Albumin Vcfon-5-Teamypezw Lhzjg-7-Pyqzynhlo Gamma Globulins PEP Interpretation HDL Cholesterol TSH Arterial Blood Glucose Arterial Blood Ionized Calcium Urine WBC (Auto) Urine Creatinine Urine Total Protein Crossmatch 04/21/21 04/21/21 04/21/21 03:11 03:20 03:41 WBC 14.1 H RBC Hgb Hct MCH 27 L RDW 16.8 H Plt Count 114 L Seg Neuts % (Manual) 97.0 H Lymphocytes % (Manual) 3.0 L Nucleated RBC % 1.0 H Seg Neutrophils # Man 13.7 H Lymphocytes # (Manual) 0.4 L PT ABG pH POC ABG pCO2 POC ABG pO2 ABG pO2 52.3 L ABG O2 Saturation 84.5 L ABG Base Excess -2.9 L ABG Hemoglobin ABG Oxyhemoglobin ABG Potassium ABG Chloride ABG Glucose Oxyhemoglobin 82.9 L Carboxyhemoglobin Sodium Potassium Chloride Carbon Dioxide BUN Creatinine Glucose POC Glucose 404 H Hemoglobin A1c Lactic Acid Calcium Phosphorus Magnesium Transferrin AST ALT Alkaline Phosphatase Total Creatine Kinase CK-MB (CK-2) Serum Total Protein Total Protein Albumin Ebmga-7-Srnoelxdy Jkszs-4-Gmnczvuoz Gamma Globulins PEP Interpretation HDL Cholesterol TSH Arterial Blood Glucose Arterial Blood Ionized Calcium Urine WBC (Auto) Urine Creatinine Urine Total Protein Crossmatch 04/21/21 04/21/2121 03:41 04:24 05:45 WBC RBC Hgb Hct MCH RDW Plt Count Seg Neuts % (Manual) Lymphocytes % (Manual) Nucleated RBC % Seg Neutrophils # Man Lymphocytes # (Manual) PT ABG pH POC ABG pCO2 POC ABG pO2 ABG pO2 ABG O2 Saturation ABG Base Excess ABG Hemoglobin ABG Oxyhemoglobin ABG Potassium ABG Chloride ABG Glucose Oxyhemoglobin Carboxyhemoglobin Sodium 179 H* Potassium 2.9 L* Chloride 138.2 H Carbon Dioxide 20 L BUN 111 H Creatinine 3.7 H Glucose 465 H POC Glucose 353 H 280 H Hemoglobin A1c Lactic Acid Calcium Phosphorus Magnesium Transferrin AST 73 H ALT 61 H Alkaline Phosphatase 144 H Total Creatine Kinase CK-MB (CK-2) Serum Total Protein Total Protein Albumin 2.5 L Yjxug-1-Nbfakhtho Vorbg-9-Bgqwacpsl Gamma Globulins PEP Interpretation HDL Cholesterol TSH Arterial Blood Glucose Arterial Blood Ionized Calcium Urine WBC (Auto) Urine Creatinine Urine Total Protein Crossmatch 04/21/21 04/21/21 04/21/21 06:47 08:01 11:11 WBC RBC Hgb Hct MCH RDW Plt Count Seg Neuts % (Manual) Lymphocytes % (Manual) Nucleated RBC % Seg Neutrophils # Man Lymphocytes # (Manual) PT ABG pH POC ABG pCO2 POC ABG pO2 ABG pO2 ABG O2 Saturation ABG Base Excess ABG Hemoglobin ABG Oxyhemoglobin ABG Potassium ABG Chloride ABG Glucose Oxyhemoglobin Carboxyhemoglobin Sodium Potassium Chloride Carbon Dioxide BUN Creatinine Glucose POC Glucose 260 H 68 L Hemoglobin A1c Lactic Acid Calcium Phosphorus Magnesium Transferrin AST ALT Alkaline Phosphatase Total Creatine Kinase CK-MB (CK-2) Serum Total Protein Total Protein Albumin Njaku-1-Mzdhpkaed Wbdnc-4-Zqhgjmxev Gamma Globulins PEP Interpretation HDL Cholesterol TSH Arterial Blood Glucose Arterial Blood Ionized Calcium Urine WBC (Auto) Urine Creatinine 44.3 H Urine Total Protein 12 H Crossmatch 04/21/21 04/21/21 04/21/21 12:51 13:41 14:40 WBC RBC Hgb Hct MCH RDW Plt Count Seg Neuts % (Manual) Lymphocytes % (Manual) Nucleated RBC % Seg Neutrophils # Man Lymphocytes # (Manual) PT ABG pH 7.275 L POC ABG pCO2 POC ABG pO2 63.4 L ABG pO2 ABG O2 Saturation ABG Base Excess ABG Hemoglobin 8.4 L ABG Oxyhemoglobin 89.5 L ABG Potassium ABG Chloride 108.0 H ABG Glucose 404 H Oxyhemoglobin Carboxyhemoglobin Sodium Potassium Chloride Carbon Dioxide BUN Creatinine Glucose POC Glucose 146 H 186 H Hemoglobin A1c Lactic Acid Calcium Phosphorus Magnesium Transferrin AST ALT Alkaline Phosphatase Total Creatine Kinase CK-MB (CK-2) Serum Total Protein Total Protein Albumin Ezulu-3-Jomgjdjyd Ysckc-7-Ofcgzmdsc Gamma Globulins PEP Interpretation HDL Cholesterol TSH Arterial Blood Glucose 404 H Arterial Blood Ionized Calcium Urine WBC (Auto) Urine Creatinine Urine Total Protein Crossmatch 04/21/21 04/21/21 04/21/21 15:47 16:25 17:57 WBC RBC Hgb Hct MCH RDW Plt Count Seg Neuts % (Manual) Lymphocytes % (Manual) Nucleated RBC % Seg Neutrophils # Man Lymphocytes # (Manual) PT ABG pH 7.486 H POC ABG pCO2 POC ABG pO2 ABG pO2 168.1 H ABG O2 Saturation 99.1 H ABG Base Excess ABG Hemoglobin 8.9 L ABG Oxyhemoglobin ABG Potassium ABG Chloride ABG Glucose Oxyhemoglobin Carboxyhemoglobin Sodium Potassium Chloride Carbon Dioxide BUN Creatinine Glucose POC Glucose 172 H 143 H Hemoglobin A1c Lactic Acid Calcium Phosphorus Magnesium Transferrin AST ALT Alkaline Phosphatase Total Creatine Kinase CK-MB (CK-2) Serum Total Protein Total Protein Albumin Tcmzd-9-Hixmnbogd Rwnom-6-Bshryswrj Gamma Globulins PEP Interpretation HDL Cholesterol TSH Arterial Blood Glucose Arterial Blood Ionized Calcium Urine WBC (Auto) Urine Creatinine Urine Total Protein Crossmatch 04/21/21 04/21/21 04/21/21 18:49 19:10 20:26 WBC RBC Hgb Hct MCH RDW Plt Count Seg Neuts % (Manual) Lymphocytes % (Manual) Nucleated RBC % Seg Neutrophils # Man Lymphocytes # (Manual) PT ABG pH POC ABG pCO2 POC ABG pO2 ABG pO2 ABG O2 Saturation ABG Base Excess ABG Hemoglobin ABG Oxyhemoglobin ABG Potassium ABG Chloride ABG Glucose Oxyhemoglobin Carboxyhemoglobin Sodium 174 H* Potassium 7.2 H* D Chloride 138.2 H Carbon Dioxide 21 L BUN 99 H Creatinine 4.0 H Glucose 157 H POC Glucose 126 H 190 H Hemoglobin A1c Lactic Acid Calcium Phosphorus Magnesium Transferrin AST 134 H ALT 71 H Alkaline Phosphatase 135 H Total Creatine Kinase 3504 H CK-MB (CK-2) Serum Total Protein Total Protein Albumin 2.2 L Fwiej-5-Rgljwcboy Hmfxq-5-Ljvcucodz Gamma Globulins PEP Interpretation HDL Cholesterol TSH Arterial Blood Glucose Arterial Blood Ionized Calcium Urine WBC (Auto) Urine Creatinine Urine Total Protein Crossmatch 04/21/21 04/21/21 04/21/21 20:53 21:52 22:55 WBC RBC Hgb Hct MCH RDW Plt Count Seg Neuts % (Manual) Lymphocytes % (Manual) Nucleated RBC % Seg Neutrophils # Man Lymphocytes # (Manual) PT ABG pH POC ABG pCO2 POC ABG pO2 ABG pO2 ABG O2 Saturation ABG Base Excess ABG Hemoglobin ABG Oxyhemoglobin ABG Potassium ABG Chloride ABG Glucose Oxyhemoglobin Carboxyhemoglobin Sodium Potassium Chloride Carbon Dioxide BUN Creatinine Glucose POC Glucose 116 H 135 H 158 H Hemoglobin A1c Lactic Acid Calcium Phosphorus Magnesium Transferrin AST ALT Alkaline Phosphatase Total Creatine Kinase CK-MB (CK-2) Serum Total Protein Total Protein Albumin Ztpgt-5-Bopylfelx Rjelp-8-Tjnrhkmbq Gamma Globulins PEP Interpretation HDL Cholesterol TSH Arterial Blood Glucose Arterial Blood Ionized Calcium Urine WBC (Auto) Urine Creatinine Urine Total Protein Crossmatch 04/21/21 04/22/21 04/22/21 23:00 00:01 00:39 WBC RBC Hgb Hct MCH RDW Plt Count Seg Neuts % (Manual) Lymphocytes % (Manual) Nucleated RBC % Seg Neutrophils # Man Lymphocytes # (Manual) PT ABG pH POC ABG pCO2 POC ABG pO2 ABG pO2 ABG O2 Saturation ABG Base Excess ABG Hemoglobin ABG Oxyhemoglobin ABG Potassium ABG Chloride ABG Glucose Oxyhemoglobin Carboxyhemoglobin Sodium 176 H* 171 H* Potassium Chloride 140.0 H Carbon Dioxide 20 L BUN 98 H Creatinine 3.9 H Glucose 206 H POC Glucose 182 H Hemoglobin A1c Lactic Acid Calcium Phosphorus Magnesium Transferrin AST ALT Alkaline Phosphatase Total Creatine Kinase 3240 H CK-MB (CK-2) Serum Total Protein Total Protein Albumin Qjnvc-8-Hhufcydga Jbfjd-7-Dklqgdedu Gamma Globulins PEP Interpretation HDL Cholesterol TSH Arterial Blood Glucose Arterial Blood Ionized Calcium Urine WBC (Auto) Urine Creatinine Urine Total Protein Crossmatch 04/22/21 04/22/21 04/22/21 00:58 01:04 04:52 WBC 11.2 H RBC Hgb Hct 44.3 H MCH 27 L RDW 17.1 H Plt Count 86 L Seg Neuts % (Manual) 86.0 H Lymphocytes % (Manual) 13.0 L Nucleated RBC % Seg Neutrophils # Man 9.6 H Lymphocytes # (Manual) PT ABG pH POC ABG pCO2 POC ABG pO2 ABG pO2 ABG O2 Saturation ABG Base Excess ABG Hemoglobin ABG Oxyhemoglobin ABG Potassium ABG Chloride ABG Glucose Oxyhemoglobin Carboxyhemoglobin Sodium Potassium Chloride Carbon Dioxide BUN Creatinine Glucose POC Glucose 176 H 143 H Hemoglobin A1c Lactic Acid Calcium Phosphorus Magnesium Transferrin AST ALT Alkaline Phosphatase Total Creatine Kinase CK-MB (CK-2) Serum Total Protein Total Protein Albumin Xmdpy-1-Vbcvirajf Hcjfg-8-Vuuwzfnzk Gamma Globulins PEP Interpretation HDL Cholesterol TSH Arterial Blood Glucose Arterial Blood Ionized Calcium Urine WBC (Auto) Urine Creatinine Urine Total Protein Crossmatch 04/22/21 04/22/21 04/22/21 06:07 06:09 07:18 WBC RBC Hgb Hct MCH RDW Plt Count Seg Neuts % (Manual) Lymphocytes % (Manual) Nucleated RBC % Seg Neutrophils # Man Lymphocytes # (Manual) PT ABG pH POC ABG pCO2 POC ABG pO2 ABG pO2 ABG O2 Saturation ABG Base Excess ABG Hemoglobin ABG Oxyhemoglobin ABG Potassium ABG Chloride ABG Glucose Oxyhemoglobin Carboxyhemoglobin Sodium Potassium Chloride Carbon Dioxide BUN Creatinine Glucose POC Glucose 206 H 163 H 158 H Hemoglobin A1c Lactic Acid Calcium Phosphorus Magnesium Transferrin AST ALT Alkaline Phosphatase Total Creatine Kinase CK-MB (CK-2) Serum Total Protein Total Protein Albumin Jrupy-2-Kubcolgjd Nmvdu-5-Kqsxcbhkg Gamma Globulins PEP Interpretation HDL Cholesterol TSH Arterial Blood Glucose Arterial Blood Ionized Calcium Urine WBC (Auto) Urine Creatinine Urine Total Protein Crossmatch 04/22/21 04/22/21 04/22/21 08:59 08:59 08:59 WBC RBC Hgb Hct MCH RDW Plt Count Seg Neuts % (Manual) Lymphocytes % (Manual) Nucleated RBC % Seg Neutrophils # Man Lymphocytes # (Manual) PT ABG pH POC ABG pCO2 POC ABG pO2 ABG pO2 ABG O2 Saturation ABG Base Excess ABG Hemoglobin ABG Oxyhemoglobin ABG Potassium ABG Chloride ABG Glucose Oxyhemoglobin Carboxyhemoglobin Sodium 169 H* Potassium 3.5 L Chloride 134.5 H Carbon Dioxide 20 L BUN 95 H Creatinine 3.6 H Glucose 151 H POC Glucose Hemoglobin A1c Lactic Acid Calcium Phosphorus Magnesium Transferrin AST 121 H ALT 75 H Alkaline Phosphatase 137 H Total Creatine Kinase 3105 H CK-MB (CK-2) Serum Total Protein 5.5 L Total Protein 6.0 L Albumin 2.8 L 2.1 L Wftcb-9-Wbkyjcrls 0.6 H Bfgtz-8-Ndcvsjwpc 1.0 H Gamma Globulins 0.6 L PEP Interpretation see below H HDL Cholesterol TSH Arterial Blood Glucose Arterial Blood Ionized Calcium Urine WBC (Auto) Urine Creatinine Urine Total Protein Crossmatch 04/22/21 04/22/21 04/22/21 09:44 10:24 12:20 WBC RBC Hgb Hct MCH RDW Plt Count Seg Neuts % (Manual) Lymphocytes % (Manual) Nucleated RBC % Seg Neutrophils # Man Lymphocytes # (Manual) PT ABG pH POC ABG pCO2 POC ABG pO2 ABG pO2 ABG O2 Saturation ABG Base Excess ABG Hemoglobin ABG Oxyhemoglobin ABG Potassium ABG Chloride ABG Glucose Oxyhemoglobin Carboxyhemoglobin Sodium Potassium Chloride Carbon Dioxide BUN Creatinine Glucose POC Glucose 107 H 131 H Hemoglobin A1c Lactic Acid Calcium Phosphorus Magnesium 2.80 H Transferrin AST ALT Alkaline Phosphatase Total Creatine Kinase CK-MB (CK-2) Serum Total Protein Total Protein Albumin Gywuh-2-Smbczycdb Fbird-6-Wrqtwypuc Gamma Globulins PEP Interpretation HDL Cholesterol TSH Arterial Blood Glucose Arterial Blood Ionized Calcium Urine WBC (Auto) Urine Creatinine Urine Total Protein Crossmatch 04/22/21 04/22/21 04/22/21 13:19 14:16 15:22 WBC RBC Hgb Hct MCH RDW Plt Count Seg Neuts % (Manual) Lymphocytes % (Manual) Nucleated RBC % Seg Neutrophils # Man Lymphocytes # (Manual) PT ABG pH POC ABG pCO2 POC ABG pO2 ABG pO2 ABG O2 Saturation ABG Base Excess ABG Hemoglobin ABG Oxyhemoglobin ABG Potassium ABG Chloride ABG Glucose Oxyhemoglobin Carboxyhemoglobin Sodium Potassium Chloride Carbon Dioxide BUN Creatinine Glucose POC Glucose 147 H 154 H 136 H Hemoglobin A1c Lactic Acid Calcium Phosphorus Magnesium Transferrin AST ALT Alkaline Phosphatase Total Creatine Kinase CK-MB (CK-2) Serum Total Protein Total Protein Albumin Ajnut-0-Zdcievpay Qnlnn-7-Hpzniszls Gamma Globulins PEP Interpretation HDL Cholesterol TSH Arterial Blood Glucose Arterial Blood Ionized Calcium Urine WBC (Auto) Urine Creatinine Urine Total Protein Crossmatch 04/22/21 04/22/21 04/22/21 15:55 15:55 16:22 WBC RBC Hgb Hct MCH RDW Plt Count Seg Neuts % (Manual) Lymphocytes % (Manual) Nucleated RBC % Seg Neutrophils # Man Lymphocytes # (Manual) PT ABG pH POC ABG pCO2 POC ABG pO2 ABG pO2 ABG O2 Saturation ABG Base Excess ABG Hemoglobin ABG Oxyhemoglobin ABG Potassium ABG Chloride ABG Glucose Oxyhemoglobin Carboxyhemoglobin Sodium 169 H* Potassium Chloride 133.5 H Carbon Dioxide 19 L BUN 94 H Creatinine 3.8 H Glucose 150 H POC Glucose 140 H Hemoglobin A1c 17.1 H Lactic Acid Calcium Phosphorus Magnesium Transferrin AST ALT Alkaline Phosphatase Total Creatine Kinase CK-MB (CK-2) Serum Total Protein Total Protein Albumin Iuqqg-8-Xzqvdmwzn Mmkho-3-Fslmsajdy Gamma Globulins PEP Interpretation HDL Cholesterol TSH Arterial Blood Glucose Arterial Blood Ionized Calcium Urine WBC (Auto) Urine Creatinine Urine Total Protein Crossmatch 04/22/21 04/22/21 04/22/21 18:11 18:26 23:19 WBC RBC Hgb Hct MCH RDW Plt Count Seg Neuts % (Manual) Lymphocytes % (Manual) Nucleated RBC % Seg Neutrophils # Man Lymphocytes # (Manual) PT ABG pH POC ABG pCO2 POC ABG pO2 ABG pO2 ABG O2 Saturation ABG Base Excess ABG Hemoglobin ABG Oxyhemoglobin ABG Potassium ABG Chloride ABG Glucose Oxyhemoglobin Carboxyhemoglobin Sodium Potassium Chloride Carbon Dioxide BUN Creatinine Glucose POC Glucose 146 H 188 H Hemoglobin A1c Lactic Acid Calcium Phosphorus Magnesium Transferrin AST ALT Alkaline Phosphatase Total Creatine Kinase 2497 H CK-MB (CK-2) Serum Total Protein Total Protein Albumin Mehhy-6-Vjggejbiw Qdgow-2-Bwwolehvy Gamma Globulins PEP Interpretation HDL Cholesterol TSH Arterial Blood Glucose Arterial Blood Ionized Calcium Urine WBC (Auto) Urine Creatinine Urine Total Protein Crossmatch 04/23/21 04/23/21 04/23/21 00:27 05:23 07:50 WBC RBC Hgb Hct MCH RDW Plt Count Seg Neuts % (Manual) Lymphocytes % (Manual) Nucleated RBC % Seg Neutrophils # Man Lymphocytes # (Manual) PT ABG pH POC ABG pCO2 POC ABG pO2 ABG pO2 ABG O2 Saturation ABG Base Excess ABG Hemoglobin ABG Oxyhemoglobin ABG Potassium ABG Chloride ABG Glucose Oxyhemoglobin Carboxyhemoglobin Sodium 162 H* Potassium Chloride Carbon Dioxide BUN Creatinine Glucose POC Glucose 212 H 239 H Hemoglobin A1c Lactic Acid Calcium Phosphorus Magnesium Transferrin AST ALT Alkaline Phosphatase Total Creatine Kinase CK-MB (CK-2) Serum Total Protein Total Protein Albumin Lghfy-1-Aslpdzqio Cnova-2-Xlafomarw Gamma Globulins PEP Interpretation HDL Cholesterol TSH Arterial Blood Glucose Arterial Blood Ionized Calcium Urine WBC (Auto) Urine Creatinine Urine Total Protein Crossmatch 04/23/21 04/23/21 04/23/21 08:13 08:13 08:13 WBC 11.9 H RBC Hgb Hct MCH 26 L RDW 16.5 H Plt Count 72 L Seg Neuts % (Manual) 80.0 H Lymphocytes % (Manual) 5.0 L Nucleated RBC % Seg Neutrophils # Man 9.5 H Lymphocytes # (Manual) 0.6 L PT ABG pH POC ABG pCO2 POC ABG pO2 ABG pO2 ABG O2 Saturation ABG Base Excess ABG Hemoglobin ABG Oxyhemoglobin ABG Potassium ABG Chloride ABG Glucose Oxyhemoglobin Carboxyhemoglobin Sodium 164 H* Potassium Chloride 128.0 H Carbon Dioxide 21 L BUN 93 H Creatinine 3.8 H Glucose 293 H POC Glucose Hemoglobin A1c Lactic Acid Calcium Phosphorus Magnesium Transferrin AST 99 H ALT 70 H Alkaline Phosphatase 147 H Total Creatine Kinase 1803 H CK-MB (CK-2) Serum Total Protein Total Protein 6.1 L Albumin 2.0 L Regdw-8-Taexzlkkd Svinq-9-Jusiodlth Gamma Globulins PEP Interpretation HDL Cholesterol TSH Arterial Blood Glucose Arterial Blood Ionized Calcium Urine WBC (Auto) Urine Creatinine Urine Total Protein Crossmatch 04/23/21 04/23/21 04/23/21 12:06 17:35 18:17 WBC RBC Hgb Hct MCH RDW Plt Count Seg Neuts % (Manual) Lymphocytes % (Manual) Nucleated RBC % Seg Neutrophils # Man Lymphocytes # (Manual) PT ABG pH POC ABG pCO2 POC ABG pO2 ABG pO2 ABG O2 Saturation ABG Base Excess ABG Hemoglobin ABG Oxyhemoglobin ABG Potassium ABG Chloride ABG Glucose Oxyhemoglobin Carboxyhemoglobin Sodium 160 H Potassium Chloride Carbon Dioxide BUN Creatinine Glucose POC Glucose 311 H 370 H Hemoglobin A1c Lactic Acid Calcium Phosphorus Magnesium Transferrin AST ALT Alkaline Phosphatase Total Creatine Kinase CK-MB (CK-2) Serum Total Protein Total Protein Albumin Knxqb-4-Llrgurlqc Yayux-7-Jwxktmbro Gamma Globulins PEP Interpretation HDL Cholesterol TSH Arterial Blood Glucose Arterial Blood Ionized Calcium Urine WBC (Auto) Urine Creatinine Urine Total Protein Crossmatch 04/24/21 04/24/21 04/24/21 02:13 06:00 06:00 WBC RBC Hgb Hct MCH 27 L RDW 17.0 H Plt Count 58 L Seg Neuts % (Manual) Lymphocytes % (Manual) 2.0 L Nucleated RBC % Seg Neutrophils # Man 8.9 H Lymphocytes # (Manual) 0.2 L PT ABG pH POC ABG pCO2 POC ABG pO2 ABG pO2 ABG O2 Saturation ABG Base Excess ABG Hemoglobin ABG Oxyhemoglobin ABG Potassium ABG Chloride ABG Glucose Oxyhemoglobin Carboxyhemoglobin Sodium 160 H Potassium Chloride Carbon Dioxide BUN Creatinine Glucose POC Glucose Hemoglobin A1c Lactic Acid Calcium Phosphorus Magnesium 2.90 H Transferrin AST ALT Alkaline Phosphatase Total Creatine Kinase CK-MB (CK-2) Serum Total Protein Total Protein Albumin Omhcx-7-Pnkexgbre Boinl-3-Uktlwrmgd Gamma Globulins PEP Interpretation HDL Cholesterol TSH Arterial Blood Glucose Arterial Blood Ionized Calcium Urine WBC (Auto) Urine Creatinine Urine Total Protein Crossmatch 04/24/21 04/24/21 04/24/21 07:46 08:15 11:34 WBC RBC Hgb Hct MCH RDW Plt Count Seg Neuts % (Manual) Lymphocytes % (Manual) Nucleated RBC % Seg Neutrophils # Man Lymphocytes # (Manual) PT ABG pH POC ABG pCO2 POC ABG pO2 ABG pO2 ABG O2 Saturation ABG Base Excess ABG Hemoglobin ABG Oxyhemoglobin ABG Potassium ABG Chloride ABG Glucose Oxyhemoglobin Carboxyhemoglobin Sodium 159 H Potassium Chloride 125.6 H Carbon Dioxide 19 L BUN 94 H Creatinine 3.7 H Glucose 514 H* POC Glucose 395 H 422 H Hemoglobin A1c Lactic Acid Calcium Phosphorus Magnesium Transferrin AST ALT 61 H Alkaline Phosphatase 155 H Total Creatine Kinase CK-MB (CK-2) Serum Total Protein Total Protein 6.1 L Albumin 1.5 L Jlqrg-0-Ttkckovhb Cqyfk-2-Zntvxgnng Gamma Globulins PEP Interpretation HDL Cholesterol TSH Arterial Blood Glucose Arterial Blood Ionized Calcium Urine WBC (Auto) Urine Creatinine Urine Total Protein Crossmatch 04/24/21 04/24/21 04/24/21 13:11 14:01 15:03 WBC RBC Hgb Hct MCH RDW Plt Count Seg Neuts % (Manual) Lymphocytes % (Manual) Nucleated RBC % Seg Neutrophils # Man Lymphocytes # (Manual) PT ABG pH POC ABG pCO2 POC ABG pO2 ABG pO2 ABG O2 Saturation ABG Base Excess ABG Hemoglobin ABG Oxyhemoglobin ABG Potassium ABG Chloride ABG Glucose Oxyhemoglobin Carboxyhemoglobin Sodium Potassium Chloride Carbon Dioxide BUN Creatinine Glucose POC Glucose 384 H 423 H 418 H Hemoglobin A1c Lactic Acid Calcium Phosphorus Magnesium Transferrin AST ALT Alkaline Phosphatase Total Creatine Kinase CK-MB (CK-2) Serum Total Protein Total Protein Albumin Tpnon-9-Dkjjvmsjc Upjtu-6-Guwiykbgs Gamma Globulins PEP Interpretation HDL Cholesterol TSH Arterial Blood Glucose Arterial Blood Ionized Calcium Urine WBC (Auto) Urine Creatinine Urine Total Protein Crossmatch 04/24/21 04/24/21 04/24/21 17:29 18:28 19:41 WBC RBC Hgb Hct MCH RDW Plt Count Seg Neuts % (Manual) Lymphocytes % (Manual) Nucleated RBC % Seg Neutrophils # Man Lymphocytes # (Manual) PT ABG pH POC ABG pCO2 POC ABG pO2 ABG pO2 ABG O2 Saturation ABG Base Excess ABG Hemoglobin ABG Oxyhemoglobin ABG Potassium ABG Chloride ABG Glucose Oxyhemoglobin Carboxyhemoglobin Sodium Potassium Chloride Carbon Dioxide BUN Creatinine Glucose POC Glucose 335 H 321 H Hemoglobin A1c Lactic Acid Calcium Phosphorus Magnesium Transferrin 112 L AST ALT Alkaline Phosphatase Total Creatine Kinase CK-MB (CK-2) Serum Total Protein Total Protein Albumin Gjvva-1-Bqkbjtlzv Byzrj-2-Hcomyydzp Gamma Globulins PEP Interpretation HDL Cholesterol TSH Arterial Blood Glucose Arterial Blood Ionized Calcium Urine WBC (Auto) Urine Creatinine Urine Total Protein Crossmatch 04/24/21 04/25/21 04/25/21 22:33 01:28 02:28 WBC RBC Hgb Hct MCH RDW Plt Count Seg Neuts % (Manual) Lymphocytes % (Manual) Nucleated RBC % Seg Neutrophils # Man Lymphocytes # (Manual) PT ABG pH POC ABG pCO2 POC ABG pO2 ABG pO2 ABG O2 Saturation ABG Base Excess ABG Hemoglobin ABG Oxyhemoglobin ABG Potassium ABG Chloride ABG Glucose Oxyhemoglobin Carboxyhemoglobin Sodium Potassium Chloride Carbon Dioxide BUN Creatinine Glucose POC Glucose 349 H 283 H 247 H Hemoglobin A1c Lactic Acid Calcium Phosphorus Magnesium Transferrin AST ALT Alkaline Phosphatase Total Creatine Kinase CK-MB (CK-2) Serum Total Protein Total Protein Albumin Ctmzn-3-Jggesbcrq Dnpag-9-Xlzfearci Gamma Globulins PEP Interpretation HDL Cholesterol TSH Arterial Blood Glucose Arterial Blood Ionized Calcium Urine WBC (Auto) Urine Creatinine Urine Total Protein Crossmatch 04/25/21 04/25/21 04/25/21 03:25 04:22 05:40 WBC RBC Hgb Hct MCH RDW Plt Count Seg Neuts % (Manual) Lymphocytes % (Manual) Nucleated RBC % Seg Neutrophils # Man Lymphocytes # (Manual) PT ABG pH POC ABG pCO2 POC ABG pO2 ABG pO2 ABG O2 Saturation ABG Base Excess ABG Hemoglobin ABG Oxyhemoglobin ABG Potassium ABG Chloride ABG Glucose Oxyhemoglobin Carboxyhemoglobin Sodium Potassium Chloride Carbon Dioxide BUN Creatinine Glucose POC Glucose 196 H 207 H 204 H Hemoglobin A1c Lactic Acid Calcium Phosphorus Magnesium Transferrin AST ALT Alkaline Phosphatase Total Creatine Kinase CK-MB (CK-2) Serum Total Protein Total Protein Albumin Obfsl-9-Majzeiscg Kzkhc-0-Sjqtiicnk Gamma Globulins PEP Interpretation HDL Cholesterol TSH Arterial Blood Glucose Arterial Blood Ionized Calcium Urine WBC (Auto) Urine Creatinine Urine Total Protein Crossmatch 04/25/21 04/25/21 04/25/21 05:45 06:43 07:37 WBC RBC Hgb Hct MCH 27 L RDW 17.0 H Plt Count 64 L Seg Neuts % (Manual) 84.0 H Lymphocytes % (Manual) 6.0 L Nucleated RBC % 1.0 H Seg Neutrophils # Man Lymphocytes # (Manual) 0.4 L PT ABG pH POC ABG pCO2 POC ABG pO2 ABG pO2 ABG O2 Saturation ABG Base Excess ABG Hemoglobin ABG Oxyhemoglobin ABG Potassium ABG Chloride ABG Glucose Oxyhemoglobin Carboxyhemoglobin Sodium Potassium Chloride Carbon Dioxide BUN Creatinine Glucose POC Glucose 238 H 201 H Hemoglobin A1c Lactic Acid Calcium Phosphorus Magnesium Transferrin AST ALT Alkaline Phosphatase Total Creatine Kinase CK-MB (CK-2) Serum Total Protein Total Protein Albumin Sduct-4-Zqldidaub Twhpc-0-Nndygxkgl Gamma Globulins PEP Interpretation HDL Cholesterol TSH Arterial Blood Glucose Arterial Blood Ionized Calcium Urine WBC (Auto) Urine Creatinine Urine Total Protein Crossmatch 04/25/21 04/25/21 04/25/21 08:11 08:11 08:41 WBC RBC Hgb Hct MCH RDW Plt Count Seg Neuts % (Manual) Lymphocytes % (Manual) Nucleated RBC % Seg Neutrophils # Man Lymphocytes # (Manual) PT ABG pH POC ABG pCO2 POC ABG pO2 ABG pO2 ABG O2 Saturation ABG Base Excess ABG Hemoglobin ABG Oxyhemoglobin ABG Potassium ABG Chloride ABG Glucose Oxyhemoglobin Carboxyhemoglobin Sodium 148 H D Potassium Chloride 115.7 H Carbon Dioxide 21 L BUN 83 H Creatinine 3.6 H Glucose 247 H POC Glucose 220 H Hemoglobin A1c Lactic Acid Calcium Phosphorus Magnesium 2.50 H Transferrin AST 63 H ALT 62 H Alkaline Phosphatase 143 H Total Creatine Kinase CK-MB (CK-2) Serum Total Protein Total Protein 5.4 L Albumin 1.4 L Jfaqw-0-Wqgkhutdp Acdeq-2-Edlbtqvqs Gamma Globulins PEP Interpretation HDL Cholesterol TSH Arterial Blood Glucose Arterial Blood Ionized Calcium Urine WBC (Auto) Urine Creatinine Urine Total Protein Crossmatch 04/25/21 04/25/21 04/25/21 09:22 10:31 11:44 WBC RBC Hgb Hct MCH RDW Plt Count Seg Neuts % (Manual) Lymphocytes % (Manual) Nucleated RBC % Seg Neutrophils # Man Lymphocytes # (Manual) PT ABG pH POC ABG pCO2 POC ABG pO2 ABG pO2 ABG O2 Saturation ABG Base Excess ABG Hemoglobin ABG Oxyhemoglobin ABG Potassium ABG Chloride ABG Glucose Oxyhemoglobin Carboxyhemoglobin Sodium Potassium Chloride Carbon Dioxide BUN Creatinine Glucose POC Glucose 228 H 215 H 191 H Hemoglobin A1c Lactic Acid Calcium Phosphorus Magnesium Transferrin AST ALT Alkaline Phosphatase Total Creatine Kinase CK-MB (CK-2) Serum Total Protein Total Protein Albumin Ehvgs-5-Lincpglbt Bgvvc-7-Yszgqshcz Gamma Globulins PEP Interpretation HDL Cholesterol TSH Arterial Blood Glucose Arterial Blood Ionized Calcium Urine WBC (Auto) Urine Creatinine Urine Total Protein Crossmatch 04/25/21 04/25/21 04/25/21 12:23 13:48 14:11 WBC RBC Hgb Hct MCH RDW Plt Count Seg Neuts % (Manual) Lymphocytes % (Manual) Nucleated RBC % Seg Neutrophils # Man Lymphocytes # (Manual) PT ABG pH POC ABG pCO2 POC ABG pO2 ABG pO2 ABG O2 Saturation ABG Base Excess ABG Hemoglobin ABG Oxyhemoglobin ABG Potassium ABG Chloride ABG Glucose Oxyhemoglobin Carboxyhemoglobin Sodium Potassium Chloride Carbon Dioxide BUN Creatinine Glucose POC Glucose 229 H 177 H 161 H Hemoglobin A1c Lactic Acid Calcium Phosphorus Magnesium Transferrin AST ALT Alkaline Phosphatase Total Creatine Kinase CK-MB (CK-2) Serum Total Protein Total Protein Albumin Zofsu-9-Snmwlmmmq Bkpce-7-Kcjxlsvqq Gamma Globulins PEP Interpretation HDL Cholesterol TSH Arterial Blood Glucose Arterial Blood Ionized Calcium Urine WBC (Auto) Urine Creatinine Urine Total Protein Crossmatch 04/25/21 04/25/21 04/26/21 18:01 21:31 01:19 WBC RBC Hgb Hct MCH RDW Plt Count Seg Neuts % (Manual) Lymphocytes % (Manual) Nucleated RBC % Seg Neutrophils # Man Lymphocytes # (Manual) PT ABG pH POC ABG pCO2 POC ABG pO2 ABG pO2 ABG O2 Saturation ABG Base Excess ABG Hemoglobin ABG Oxyhemoglobin ABG Potassium ABG Chloride ABG Glucose Oxyhemoglobin Carboxyhemoglobin Sodium Potassium Chloride Carbon Dioxide BUN Creatinine Glucose POC Glucose 264 H 371 H 356 H Hemoglobin A1c Lactic Acid Calcium Phosphorus Magnesium Transferrin AST ALT Alkaline Phosphatase Total Creatine Kinase CK-MB (CK-2) Serum Total Protein Total Protein Albumin Ykert-3-Ogroceyny Dcqza-9-Trtyejqdl Gamma Globulins PEP Interpretation HDL Cholesterol TSH Arterial Blood Glucose Arterial Blood Ionized Calcium Urine WBC (Auto) Urine Creatinine Urine Total Protein Crossmatch 04/26/21 04/26/21 04/26/21 06:31 09:13 09:33 WBC RBC Hgb Hct MCH 27 L RDW 16.9 H Plt Count 58 L Seg Neuts % (Manual) 77.0 H Lymphocytes % (Manual) 4.0 L Nucleated RBC % 2.0 H Seg Neutrophils # Man Lymphocytes # (Manual) 0.3 L PT ABG pH POC ABG pCO2 POC ABG pO2 ABG pO2 ABG O2 Saturation ABG Base Excess ABG Hemoglobin ABG Oxyhemoglobin ABG Potassium ABG Chloride ABG Glucose Oxyhemoglobin Carboxyhemoglobin Sodium Potassium Chloride Carbon Dioxide BUN Creatinine Glucose POC Glucose 428 H 454 H Hemoglobin A1c Lactic Acid Calcium Phosphorus Magnesium Transferrin AST ALT Alkaline Phosphatase Total Creatine Kinase CK-MB (CK-2) Serum Total Protein Total Protein Albumin Hohdc-6-Gpwijzgxx Wenqd-9-Khlpcbolf Gamma Globulins PEP Interpretation HDL Cholesterol TSH Arterial Blood Glucose Arterial Blood Ionized Calcium Urine WBC (Auto) Urine Creatinine Urine Total Protein Crossmatch 04/26/21 04/26/21 04/26/21 09:33 09:33 11:00 WBC RBC Hgb Hct MCH RDW Plt Count Seg Neuts % (Manual) Lymphocytes % (Manual) Nucleated RBC % Seg Neutrophils # Man Lymphocytes # (Manual) PT ABG pH 7.281 L POC ABG pCO2 POC ABG pO2 66.4 L ABG pO2 ABG O2 Saturation ABG Base Excess ABG Hemoglobin 10.9 L ABG Oxyhemoglobin 91 L ABG Potassium ABG Chloride ABG Glucose 521 H Oxyhemoglobin Carboxyhemoglobin Sodium Potassium Chloride Carbon Dioxide 19 L BUN 98 H Creatinine 3.8 H Glucose 530 H* POC Glucose Hemoglobin A1c Lactic Acid Calcium 8.1 L Phosphorus 5.60 H D Magnesium Transferrin AST 60 H ALT 72 H Alkaline Phosphatase 168 H Total Creatine Kinase CK-MB (CK-2) Serum Total Protein Total Protein 4.6 L Albumin 1.7 L Dqaym-3-Mqvrkmzbk Pzkin-9-Mbyenyrcc Gamma Globulins PEP Interpretation HDL Cholesterol TSH Arterial Blood Glucose 521 H Arterial Blood Ionized Calcium Urine WBC (Auto) Urine Creatinine Urine Total Protein Crossmatch 04/26/21 04/26/21 04/26/21 12:36 15:39 16:18 WBC RBC Hgb Hct MCH RDW Plt Count Seg Neuts % (Manual) Lymphocytes % (Manual) Nucleated RBC % Seg Neutrophils # Man Lymphocytes # (Manual) PT ABG pH 7.275 L POC ABG pCO2 POC ABG pO2 63.4 L ABG pO2 ABG O2 Saturation ABG Base Excess ABG Hemoglobin 8.4 L ABG Oxyhemoglobin 89.5 L ABG Potassium ABG Chloride 108.0 H ABG Glucose 404 H Oxyhemoglobin Carboxyhemoglobin Sodium Potassium Chloride Carbon Dioxide BUN Creatinine Glucose POC Glucose 414 H 324 H Hemoglobin A1c Lactic Acid Calcium Phosphorus Magnesium Transferrin AST ALT Alkaline Phosphatase Total Creatine Kinase CK-MB (CK-2) Serum Total Protein Total Protein Albumin Dylnq-7-Fcehkbyje Xqyob-0-Rbksvpcfe Gamma Globulins PEP Interpretation HDL Cholesterol TSH Arterial Blood Glucose 404 H Arterial Blood Ionized Calcium Urine WBC (Auto) Urine Creatinine Urine Total Protein Crossmatch 04/26/21 04/27/21 04/27/21 21:14 00:07 05:47 WBC RBC Hgb Hct MCH RDW Plt Count Seg Neuts % (Manual) Lymphocytes % (Manual) Nucleated RBC % Seg Neutrophils # Man Lymphocytes # (Manual) PT ABG pH POC ABG pCO2 POC ABG pO2 ABG pO2 ABG O2 Saturation ABG Base Excess ABG Hemoglobin ABG Oxyhemoglobin ABG Potassium ABG Chloride ABG Glucose Oxyhemoglobin Carboxyhemoglobin Sodium Potassium Chloride Carbon Dioxide BUN Creatinine Glucose POC Glucose 242 H 282 H 214 H Hemoglobin A1c Lactic Acid Calcium Phosphorus Magnesium Transferrin AST ALT Alkaline Phosphatase Total Creatine Kinase CK-MB (CK-2) Serum Total Protein Total Protein Albumin Ruowy-1-Myxvhnakv Bciva-7-Wamfqzewg Gamma Globulins PEP Interpretation HDL Cholesterol TSH Arterial Blood Glucose Arterial Blood Ionized Calcium Urine WBC (Auto) Urine Creatinine Urine Total Protein Crossmatch 04/27/21 04/27/21 04/27/21 06:23 07:43 08:30 WBC RBC Hgb Hct MCH RDW Plt Count Seg Neuts % (Manual) Lymphocytes % (Manual) Nucleated RBC % Seg Neutrophils # Man Lymphocytes # (Manual) PT ABG pH 7.309 L POC ABG pCO2 POC ABG pO2 70.6 L ABG pO2 ABG O2 Saturation ABG Base Excess ABG Hemoglobin 9.16 L ABG Oxyhemoglobin 92.4 L ABG Potassium ABG Chloride ABG Glucose Oxyhemoglobin Carboxyhemoglobin Sodium Potassium Chloride 110.1 H Carbon Dioxide 15 L BUN 109 H Creatinine 4.3 H Glucose 218 H POC Glucose 187 H Hemoglobin A1c Lactic Acid Calcium Phosphorus Magnesium Transferrin AST 53 H ALT Alkaline Phosphatase 148 H Total Creatine Kinase 1000 H CK-MB (CK-2) Serum Total Protein Total Protein 5.2 L Albumin 1.2 L Sbwwx-6-Syxkwojqf Wkmkz-7-Xqjhpuctv Gamma Globulins PEP Interpretation HDL Cholesterol TSH Arterial Blood Glucose Arterial Blood Ionized Calcium Urine WBC (Auto) Urine Creatinine Urine Total Protein Crossmatch 04/27/21 04/27/21 04/27/21 11:54 21:08 23:28 WBC RBC Hgb Hct MCH RDW Plt Count Seg Neuts % (Manual) Lymphocytes % (Manual) Nucleated RBC % Seg Neutrophils # Man Lymphocytes # (Manual) PT ABG pH POC ABG pCO2 POC ABG pO2 ABG pO2 ABG O2 Saturation ABG Base Excess ABG Hemoglobin ABG Oxyhemoglobin ABG Potassium ABG Chloride ABG Glucose Oxyhemoglobin Carboxyhemoglobin Sodium Potassium Chloride Carbon Dioxide BUN Creatinine Glucose POC Glucose 147 H 136 H 201 H Hemoglobin A1c Lactic Acid Calcium Phosphorus Magnesium Transferrin AST ALT Alkaline Phosphatase Total Creatine Kinase CK-MB (CK-2) Serum Total Protein Total Protein Albumin Gcvet-5-Ktdphmzgo Hevqh-4-Wgmvsbtwv Gamma Globulins PEP Interpretation HDL Cholesterol TSH Arterial Blood Glucose Arterial Blood Ionized Calcium Urine WBC (Auto) Urine Creatinine Urine Total Protein Crossmatch 04/28/21 04/28/21 04/28/21 04:00 04:00 05:00 WBC 12.6 H RBC 3.59 L Hgb 9.4 L Hct MCH 26 L RDW 16.6 H Plt Count 111 L Seg Neuts % (Manual) Lymphocytes % (Manual) 1.0 L Nucleated RBC % 4.0 H Seg Neutrophils # Man 11.6 H Lymphocytes # (Manual) 0.1 L PT 15.3 H ABG pH POC ABG pCO2 POC ABG pO2 ABG pO2 ABG O2 Saturation ABG Base Excess ABG Hemoglobin ABG Oxyhemoglobin ABG Potassium ABG Chloride ABG Glucose Oxyhemoglobin Carboxyhemoglobin Sodium 147 H Potassium 3.5 L D Chloride Carbon Dioxide BUN 79 H Creatinine 3.8 H Glucose 194 H POC Glucose Hemoglobin A1c Lactic Acid Calcium 8.1 L Phosphorus Magnesium Transferrin AST ALT Alkaline Phosphatase Total Creatine Kinase CK-MB (CK-2) Serum Total Protein Total Protein Albumin Gamyq-0-Fdiuqigvq Patwx-2-Bfcswkvof Gamma Globulins PEP Interpretation HDL Cholesterol TSH Arterial Blood Glucose Arterial Blood Ionized Calcium Urine WBC (Auto) Urine Creatinine Urine Total Protein Crossmatch 04/28/21 04/28/21 04/28/21 05:08 05:18 11:04 WBC RBC Hgb Hct MCH RDW Plt Count Seg Neuts % (Manual) Lymphocytes % (Manual) Nucleated RBC % Seg Neutrophils # Man Lymphocytes # (Manual) PT ABG pH POC ABG pCO2 POC ABG pO2 66.5 L ABG pO2 ABG O2 Saturation ABG Base Excess ABG Hemoglobin 9.7 L ABG Oxyhemoglobin 92.5 L ABG Potassium 3.2 L ABG Chloride ABG Glucose 200 H Oxyhemoglobin Carboxyhemoglobin Sodium Potassium Chloride Carbon Dioxide BUN Creatinine Glucose POC Glucose 183 H 174 H Hemoglobin A1c Lactic Acid Calcium Phosphorus Magnesium Transferrin AST ALT Alkaline Phosphatase Total Creatine Kinase CK-MB (CK-2) Serum Total Protein Total Protein Albumin Egtqf-0-Eiydejrqy Rrqco-1-Orwjliupz Gamma Globulins PEP Interpretation HDL Cholesterol TSH Arterial Blood Glucose 200 H Arterial Blood Ionized Calcium 4.5 L Urine WBC (Auto) Urine Creatinine Urine Total Protein Crossmatch 04/28/21 04/28/21 04/28/21 17:16 21:14 23:41 WBC RBC Hgb Hct MCH RDW Plt Count Seg Neuts % (Manual) Lymphocytes % (Manual) Nucleated RBC % Seg Neutrophils # Man Lymphocytes # (Manual) PT ABG pH POC ABG pCO2 POC ABG pO2 ABG pO2 ABG O2 Saturation ABG Base Excess ABG Hemoglobin ABG Oxyhemoglobin ABG Potassium ABG Chloride ABG Glucose Oxyhemoglobin Carboxyhemoglobin Sodium Potassium Chloride Carbon Dioxide BUN Creatinine Glucose POC Glucose 135 H 134 H 171 H Hemoglobin A1c Lactic Acid Calcium Phosphorus Magnesium Transferrin AST ALT Alkaline Phosphatase Total Creatine Kinase CK-MB (CK-2) Serum Total Protein Total Protein Albumin Yxsxw-1-Vfqewhmrg Jsvuu-2-Zgsmpolbf Gamma Globulins PEP Interpretation HDL Cholesterol TSH Arterial Blood Glucose Arterial Blood Ionized Calcium Urine WBC (Auto) Urine Creatinine Urine Total Protein Crossmatch 04/29/21 04/29/21 04/29/21 01:16 04:00 04:00 WBC 13.3 H RBC 3.12 L Hgb 8.3 L Hct 26.2 L MCH 27 L RDW 16.3 H Plt Count 132 L Seg Neuts % (Manual) Lymphocytes % (Manual) Nucleated RBC % Seg Neutrophils # Man Lymphocytes # (Manual) PT ABG pH POC ABG pCO2 POC ABG pO2 ABG pO2 ABG O2 Saturation ABG Base Excess ABG Hemoglobin ABG Oxyhemoglobin ABG Potassium ABG Chloride ABG Glucose Oxyhemoglobin Carboxyhemoglobin Sodium Potassium Chloride Carbon Dioxide BUN 63 H Creatinine 3.4 H Glucose 249 H POC Glucose 236 H Hemoglobin A1c Lactic Acid Calcium 8.2 L Phosphorus Magnesium Transferrin AST 61 H ALT 71 H Alkaline Phosphatase 170 H Total Creatine Kinase CK-MB (CK-2) Serum Total Protein Total Protein 5.1 L Albumin 1.6 L Hvycb-8-Rsajjjjfp Xxcnf-0-Uqttdysds Gamma Globulins PEP Interpretation HDL Cholesterol TSH Arterial Blood Glucose Arterial Blood Ionized Calcium Urine WBC (Auto) Urine Creatinine Urine Total Protein Crossmatch 04/29/21 04/29/21 04/29/21 11:35 13:30 16:01 WBC RBC Hgb Hct MCH RDW Plt Count Seg Neuts % (Manual) Lymphocytes % (Manual) Nucleated RBC % Seg Neutrophils # Man Lymphocytes # (Manual) PT ABG pH POC ABG pCO2 POC ABG pO2 ABG pO2 ABG O2 Saturation ABG Base Excess ABG Hemoglobin ABG Oxyhemoglobin ABG Potassium ABG Chloride ABG Glucose Oxyhemoglobin Carboxyhemoglobin Sodium Potassium Chloride Carbon Dioxide BUN Creatinine Glucose POC Glucose 320 H 297 H Hemoglobin A1c Lactic Acid Calcium Phosphorus Magnesium Transferrin AST ALT Alkaline Phosphatase Total Creatine Kinase CK-MB (CK-2) Serum Total Protein Total Protein Albumin Nxhku-8-Tzozmxwim Xhdcy-8-Rztryqmcn Gamma Globulins PEP Interpretation HDL Cholesterol TSH Arterial Blood Glucose Arterial Blood Ionized Calcium Urine WBC (Auto) > 182.0 H Urine Creatinine Urine Total Protein Crossmatch 04/29/21 04/29/21 04/30/21 21:58 23:35 04:00 WBC 11.4 H RBC 3.27 L Hgb 8.7 L Hct 27.5 L MCH 27 L RDW 16.6 H Plt Count Seg Neuts % (Manual) Lymphocytes % (Manual) Nucleated RBC % Seg Neutrophils # Man Lymphocytes # (Manual) PT ABG pH POC ABG pCO2 POC ABG pO2 ABG pO2 ABG O2 Saturation ABG Base Excess ABG Hemoglobin ABG Oxyhemoglobin ABG Potassium ABG Chloride ABG Glucose Oxyhemoglobin Carboxyhemoglobin Sodium Potassium Chloride Carbon Dioxide BUN Creatinine Glucose POC Glucose 260 H 254 H Hemoglobin A1c Lactic Acid Calcium Phosphorus Magnesium Transferrin AST ALT Alkaline Phosphatase Total Creatine Kinase CK-MB (CK-2) Serum Total Protein Total Protein Albumin Flwbk-7-Ynlcgziia Wwbpy-5-Nidalnxko Gamma Globulins PEP Interpretation HDL Cholesterol TSH Arterial Blood Glucose Arterial Blood Ionized Calcium Urine WBC (Auto) Urine Creatinine Urine Total Protein Crossmatch 04/30/21 04/30/21 04/30/21 04:00 05:17 05:31 WBC RBC Hgb Hct MCH RDW Plt Count Seg Neuts % (Manual) Lymphocytes % (Manual) Nucleated RBC % Seg Neutrophils # Man Lymphocytes # (Manual) PT ABG pH 7.452 H POC ABG pCO2 30.5 L POC ABG pO2 54.5 L ABG pO2 ABG O2 Saturation ABG Base Excess ABG Hemoglobin 10.1 L ABG Oxyhemoglobin 87.4 L ABG Potassium 2.9 L ABG Chloride ABG Glucose 305 H Oxyhemoglobin Carboxyhemoglobin Sodium Potassium 3.1 L Chloride Carbon Dioxide BUN 79 H Creatinine 3.9 H Glucose 275 H POC Glucose 267 H Hemoglobin A1c Lactic Acid Calcium Phosphorus 5.60 H D Magnesium Transferrin AST ALT Alkaline Phosphatase Total Creatine Kinase CK-MB (CK-2) Serum Total Protein Total Protein Albumin Iwxny-5-Sbqietxpx Zbfeb-9-Jsibnemax Gamma Globulins PEP Interpretation HDL Cholesterol TSH Arterial Blood Glucose 305 H Arterial Blood Ionized Calcium Urine WBC (Auto) Urine Creatinine Urine Total Protein Crossmatch 04/30/21 04/30/21 04/30/21 12:31 17:50 22:24 WBC RBC Hgb Hct MCH RDW Plt Count Seg Neuts % (Manual) Lymphocytes % (Manual) Nucleated RBC % Seg Neutrophils # Man Lymphocytes # (Manual) PT ABG pH POC ABG pCO2 POC ABG pO2 ABG pO2 ABG O2 Saturation ABG Base Excess ABG Hemoglobin ABG Oxyhemoglobin ABG Potassium ABG Chloride ABG Glucose Oxyhemoglobin Carboxyhemoglobin Sodium Potassium Chloride Carbon Dioxide BUN Creatinine Glucose POC Glucose 259 H 161 H 146 H Hemoglobin A1c Lactic Acid Calcium Phosphorus Magnesium Transferrin AST ALT Alkaline Phosphatase Total Creatine Kinase CK-MB (CK-2) Serum Total Protein Total Protein Albumin Fkoum-0-Kdssuwtsv Vlite-1-Sjlursypz Gamma Globulins PEP Interpretation HDL Cholesterol TSH Arterial Blood Glucose Arterial Blood Ionized Calcium Urine WBC (Auto) Urine Creatinine Urine Total Protein Crossmatch 05/01/21 05/01/21 05/01/21 00:09 03:30 04:00 WBC 12.0 H RBC 3.08 L Hgb 8.1 L Hct 25.6 L MCH 26 L RDW 16.3 H Plt Count Seg Neuts % (Manual) Lymphocytes % (Manual) Nucleated RBC % Seg Neutrophils # Man Lymphocytes # (Manual) PT ABG pH 7.493 H POC ABG pCO2 POC ABG pO2 ABG pO2 ABG O2 Saturation ABG Base Excess ABG Hemoglobin 9.3 L ABG Oxyhemoglobin ABG Potassium ABG Chloride ABG Glucose 167 H Oxyhemoglobin Carboxyhemoglobin 0.4 L Sodium Potassium Chloride Carbon Dioxide BUN Creatinine Glucose POC Glucose 149 H Hemoglobin A1c Lactic Acid Calcium Phosphorus Magnesium Transferrin AST ALT Alkaline Phosphatase Total Creatine Kinase CK-MB (CK-2) Serum Total Protein Total Protein Albumin Abmjj-6-Yaekvgich Yhghb-2-Nxzpvadhe Gamma Globulins PEP Interpretation HDL Cholesterol TSH Arterial Blood Glucose 167 H Arterial Blood Ionized Calcium Urine WBC (Auto) Urine Creatinine Urine Total Protein Crossmatch 05/01/21 05/01/21 05/01/21 04:00 05:48 11:49 WBC RBC Hgb Hct MCH RDW Plt Count Seg Neuts % (Manual) Lymphocytes % (Manual) Nucleated RBC % Seg Neutrophils # Man Lymphocytes # (Manual) PT ABG pH POC ABG pCO2 POC ABG pO2 ABG pO2 ABG O2 Saturation ABG Base Excess ABG Hemoglobin ABG Oxyhemoglobin ABG Potassium ABG Chloride ABG Glucose Oxyhemoglobin Carboxyhemoglobin Sodium Potassium 3.5 L Chloride Carbon Dioxide BUN 62 H Creatinine 3.3 H Glucose 179 H POC Glucose 197 H 167 H Hemoglobin A1c Lactic Acid Calcium 8.3 L Phosphorus Magnesium Transferrin AST ALT Alkaline Phosphatase Total Creatine Kinase CK-MB (CK-2) Serum Total Protein Total Protein Albumin Htodm-9-Fiuvkdzvr Zfmxh-5-Tzntexxbj Gamma Globulins PEP Interpretation HDL Cholesterol TSH Arterial Blood Glucose Arterial Blood Ionized Calcium Urine WBC (Auto) Urine Creatinine Urine Total Protein Crossmatch 05/01/21 05/01/21 05/02/21 16:24 23:25 04:00 WBC 14.2 H RBC 2.61 L Hgb 6.9 L Hct 22.1 L MCH 27 L RDW 16.1 H Plt Count Seg Neuts % (Manual) Lymphocytes % (Manual) Nucleated RBC % Seg Neutrophils # Man Lymphocytes # (Manual) PT ABG pH POC ABG pCO2 POC ABG pO2 ABG pO2 ABG O2 Saturation ABG Base Excess ABG Hemoglobin ABG Oxyhemoglobin ABG Potassium ABG Chloride ABG Glucose Oxyhemoglobin Carboxyhemoglobin Sodium Potassium Chloride Carbon Dioxide BUN Creatinine Glucose POC Glucose 157 H 147 H Hemoglobin A1c Lactic Acid Calcium Phosphorus Magnesium Transferrin AST ALT Alkaline Phosphatase Total Creatine Kinase CK-MB (CK-2) Serum Total Protein Total Protein Albumin Mtjql-3-Klpjmkcud Cxgna-1-Ifwkoyndg Gamma Globulins PEP Interpretation HDL Cholesterol TSH Arterial Blood Glucose Arterial Blood Ionized Calcium Urine WBC (Auto) Urine Creatinine Urine Total Protein Crossmatch 05/02/21 05/02/21 05/02/21 04:00 04:34 05:23 WBC RBC Hgb Hct MCH RDW Plt Count Seg Neuts % (Manual) Lymphocytes % (Manual) Nucleated RBC % Seg Neutrophils # Man Lymphocytes # (Manual) PT ABG pH 7.487 H POC ABG pCO2 POC ABG pO2 78.6 L ABG pO2 ABG O2 Saturation ABG Base Excess ABG Hemoglobin 11.5 L ABG Oxyhemoglobin ABG Potassium ABG Chloride ABG Glucose 122 H Oxyhemoglobin Carboxyhemoglobin Sodium Potassium Chloride Carbon Dioxide BUN 49 H Creatinine 2.8 H Glucose 117 H POC Glucose 119 H Hemoglobin A1c Lactic Acid Calcium Phosphorus Magnesium Transferrin AST ALT Alkaline Phosphatase Total Creatine Kinase CK-MB (CK-2) Serum Total Protein Total Protein Albumin Gcges-3-Iiftbynpz Iuzst-0-Nptmecnzl Gamma Globulins PEP Interpretation HDL Cholesterol TSH Arterial Blood Glucose 122 H Arterial Blood Ionized Calcium Urine WBC (Auto) Urine Creatinine Urine Total Protein Crossmatch 05/02/21 05/02/21 05/02/21 12:00 12:04 17:29 WBC RBC Hgb Hct MCH RDW Plt Count Seg Neuts % (Manual) Lymphocytes % (Manual) Nucleated RBC % Seg Neutrophils # Man Lymphocytes # (Manual) PT ABG pH POC ABG pCO2 POC ABG pO2 ABG pO2 ABG O2 Saturation ABG Base Excess ABG Hemoglobin ABG Oxyhemoglobin ABG Potassium ABG Chloride ABG Glucose Oxyhemoglobin Carboxyhemoglobin Sodium Potassium Chloride Carbon Dioxide BUN Creatinine Glucose POC Glucose 115 H 120 H Hemoglobin A1c Lactic Acid Calcium Phosphorus Magnesium Transferrin AST ALT Alkaline Phosphatase Total Creatine Kinase CK-MB (CK-2) Serum Total Protein Total Protein Albumin Bpdhp-1-Boekbbwje Rftjg-6-Fsdelrymv Gamma Globulins PEP Interpretation HDL Cholesterol TSH Arterial Blood Glucose Arterial Blood Ionized Calcium Urine WBC (Auto) Urine Creatinine Urine Total Protein Crossmatch See Detail 05/02/21 05/03/21 05/03/21 23:36 04:00 04:00 WBC 13.9 H RBC 3.22 L Hgb 8.7 L Hct 27.4 L MCH 27 L RDW 15.8 H Plt Count Seg Neuts % (Manual) Lymphocytes % (Manual) Nucleated RBC % Seg Neutrophils # Man Lymphocytes # (Manual) PT ABG pH POC ABG pCO2 POC ABG pO2 ABG pO2 ABG O2 Saturation ABG Base Excess ABG Hemoglobin ABG Oxyhemoglobin ABG Potassium ABG Chloride ABG Glucose Oxyhemoglobin Carboxyhemoglobin Sodium 146 H Potassium 3.5 L Chloride 107.5 H Carbon Dioxide BUN 40 H Creatinine 2.5 H Glucose 104 H POC Glucose 130 H Hemoglobin A1c Lactic Acid Calcium Phosphorus Magnesium Transferrin AST 53 H ALT Alkaline Phosphatase 149 H Total Creatine Kinase CK-MB (CK-2) Serum Total Protein Total Protein 5.2 L Albumin 1.5 L Lutvm-5-Cranndhsp Kmnhe-6-Djpojaefl Gamma Globulins PEP Interpretation HDL Cholesterol TSH Arterial Blood Glucose Arterial Blood Ionized Calcium Urine WBC (Auto) Urine Creatinine Urine Total Protein Crossmatch 05/03/21 05/04/21 05/04/21 17:26 01:24 04:48 WBC 14.3 H RBC 3.14 L Hgb 8.5 L Hct 26.3 L MCH 27 L RDW 15.8 H Plt Count Seg Neuts % (Manual) Lymphocytes % (Manual) Nucleated RBC % Seg Neutrophils # Man Lymphocytes # (Manual) PT ABG pH POC ABG pCO2 POC ABG pO2 ABG pO2 ABG O2 Saturation ABG Base Excess ABG Hemoglobin ABG Oxyhemoglobin ABG Potassium ABG Chloride ABG Glucose Oxyhemoglobin Carboxyhemoglobin Sodium Potassium Chloride Carbon Dioxide BUN Creatinine Glucose POC Glucose 123 H 146 H Hemoglobin A1c Lactic Acid Calcium Phosphorus Magnesium Transferrin AST ALT Alkaline Phosphatase Total Creatine Kinase CK-MB (CK-2) Serum Total Protein Total Protein Albumin Tazql-4-Vxdohagvj Wzoga-3-Ysrwqmudb Gamma Globulins PEP Interpretation HDL Cholesterol TSH Arterial Blood Glucose Arterial Blood Ionized Calcium Urine WBC (Auto) Urine Creatinine Urine Total Protein Crossmatch 05/04/21 05/04/21 05/04/21 04:48 05:15 11:24 WBC RBC Hgb Hct MCH RDW Plt Count Seg Neuts % (Manual) Lymphocytes % (Manual) Nucleated RBC % Seg Neutrophils # Man Lymphocytes # (Manual) PT ABG pH POC ABG pCO2 POC ABG pO2 ABG pO2 ABG O2 Saturation ABG Base Excess ABG Hemoglobin ABG Oxyhemoglobin ABG Potassium ABG Chloride ABG Glucose Oxyhemoglobin Carboxyhemoglobin Sodium Potassium 3.5 L Chloride Carbon Dioxide BUN 58 H Creatinine 3.4 H Glucose 168 H POC Glucose 162 H 145 H Hemoglobin A1c Lactic Acid Calcium Phosphorus 5.30 H Magnesium Transferrin AST ALT Alkaline Phosphatase Total Creatine Kinase CK-MB (CK-2) Serum Total Protein Total Protein Albumin Afctr-7-Ksizzcqoq Mcwjz-2-Bvytgnuno Gamma Globulins PEP Interpretation HDL Cholesterol 24 L TSH Arterial Blood Glucose Arterial Blood Ionized Calcium Urine WBC (Auto) Urine Creatinine Urine Total Protein Crossmatch 05/04/21 05/04/21 05/05/21 16:01 23:32 04:00 WBC RBC Hgb Hct MCH RDW Plt Count Seg Neuts % (Manual) Lymphocytes % (Manual) Nucleated RBC % Seg Neutrophils # Man Lymphocytes # (Manual) PT ABG pH POC ABG pCO2 POC ABG pO2 ABG pO2 ABG O2 Saturation ABG Base Excess ABG Hemoglobin ABG Oxyhemoglobin ABG Potassium ABG Chloride ABG Glucose Oxyhemoglobin Carboxyhemoglobin Sodium Potassium 3.4 L Chloride Carbon Dioxide BUN 43 H Creatinine 2.7 H Glucose 124 H POC Glucose 148 H 134 H Hemoglobin A1c Lactic Acid Calcium 8.2 L Phosphorus Magnesium Transferrin AST ALT Alkaline Phosphatase Total Creatine Kinase CK-MB (CK-2) Serum Total Protein Total Protein Albumin Zadds-1-Avfkcpiqg Dtkxk-6-Aynoyrbth Gamma Globulins PEP Interpretation HDL Cholesterol TSH Arterial Blood Glucose Arterial Blood Ionized Calcium Urine WBC (Auto) Urine Creatinine Urine Total Protein Crossmatch 05/05/21 05/06/21 05/06/21 05:14 00:01 04:00 WBC RBC Hgb Hct MCH RDW Plt Count Seg Neuts % (Manual) Lymphocytes % (Manual) Nucleated RBC % Seg Neutrophils # Man Lymphocytes # (Manual) PT ABG pH POC ABG pCO2 POC ABG pO2 ABG pO2 ABG O2 Saturation ABG Base Excess ABG Hemoglobin ABG Oxyhemoglobin ABG Potassium ABG Chloride ABG Glucose Oxyhemoglobin Carboxyhemoglobin Sodium Potassium 3.2 L Chloride Carbon Dioxide BUN 56 H Creatinine 3.0 H Glucose 110 H POC Glucose 120 H 120 H Hemoglobin A1c Lactic Acid Calcium 7.8 L Phosphorus 4.60 H Magnesium Transferrin AST ALT Alkaline Phosphatase Total Creatine Kinase CK-MB (CK-2) Serum Total Protein Total Protein Albumin Lvgdf-5-Ladtxpubr Rhrgu-2-Pyhyssqbb Gamma Globulins PEP Interpretation HDL Cholesterol TSH Arterial Blood Glucose Arterial Blood Ionized Calcium Urine WBC (Auto) Urine Creatinine Urine Total Protein Crossmatch 05/06/21 05/06/21 05/06/21 04:27 05:15 17:37 WBC RBC 3.03 L Hgb 8.3 L Hct 25.4 L MCH 27 L RDW Plt Count Seg Neuts % (Manual) Lymphocytes % (Manual) Nucleated RBC % Seg Neutrophils # Man Lymphocytes # (Manual) PT ABG pH POC ABG pCO2 POC ABG pO2 ABG pO2 ABG O2 Saturation ABG Base Excess ABG Hemoglobin ABG Oxyhemoglobin ABG Potassium ABG Chloride ABG Glucose Oxyhemoglobin Carboxyhemoglobin Sodium Potassium Chloride Carbon Dioxide BUN Creatinine Glucose POC Glucose 137 H 132 H Hemoglobin A1c Lactic Acid Calcium Phosphorus Magnesium Transferrin AST ALT Alkaline Phosphatase Total Creatine Kinase CK-MB (CK-2) Serum Total Protein Total Protein Albumin Odmey-9-Lwezczdyu Ybewe-1-Lyyfyrevv Gamma Globulins PEP Interpretation HDL Cholesterol TSH Arterial Blood Glucose Arterial Blood Ionized Calcium Urine WBC (Auto) Urine Creatinine Urine Total Protein Crossmatch 05/07/21 05/07/21 05/07/21 00:30 04:23 04:23 WBC RBC Hgb Hct MCH RDW Plt Count Seg Neuts % (Manual) Lymphocytes % (Manual) Nucleated RBC % Seg Neutrophils # Man Lymphocytes # (Manual) PT ABG pH POC ABG pCO2 POC ABG pO2 ABG pO2 ABG O2 Saturation ABG Base Excess ABG Hemoglobin ABG Oxyhemoglobin ABG Potassium ABG Chloride ABG Glucose Oxyhemoglobin Carboxyhemoglobin Sodium Potassium 3.4 L Chloride 107.1 H Carbon Dioxide BUN 28 H Creatinine 1.9 H Glucose 165 H POC Glucose 121 H Hemoglobin A1c Lactic Acid Calcium 8.2 L Phosphorus Magnesium 1.60 L Transferrin AST ALT Alkaline Phosphatase Total Creatine Kinase CK-MB (CK-2) Serum Total Protein Total Protein Albumin Ukvzy-7-Hhzgctccb Tlbrv-4-Yurdqidpb Gamma Globulins PEP Interpretation HDL Cholesterol TSH Arterial Blood Glucose Arterial Blood Ionized Calcium Urine WBC (Auto) Urine Creatinine Urine Total Protein Crossmatch 05/07/21 05/07/21 05/07/21 05:30 11:37 17:28 WBC RBC Hgb Hct MCH RDW Plt Count Seg Neuts % (Manual) Lymphocytes % (Manual) Nucleated RBC % Seg Neutrophils # Man Lymphocytes # (Manual) PT ABG pH POC ABG pCO2 POC ABG pO2 ABG pO2 ABG O2 Saturation ABG Base Excess ABG Hemoglobin ABG Oxyhemoglobin ABG Potassium ABG Chloride ABG Glucose Oxyhemoglobin Carboxyhemoglobin Sodium Potassium Chloride Carbon Dioxide BUN Creatinine Glucose POC Glucose 205 H 148 H 170 H Hemoglobin A1c Lactic Acid Calcium Phosphorus Magnesium Transferrin AST ALT Alkaline Phosphatase Total Creatine Kinase CK-MB (CK-2) Serum Total Protein Total Protein Albumin Ojade-5-Ozjxqyrff Jimkb-9-Xnqutadfx Gamma Globulins PEP Interpretation HDL Cholesterol TSH Arterial Blood Glucose Arterial Blood Ionized Calcium Urine WBC (Auto) Urine Creatinine Urine Total Protein Crossmatch 05/07/21 05/08/21 05/08/21 23:57 05:12 05:12 WBC 11.2 H RBC 3.01 L Hgb 8.2 L Hct 25.5 L MCH 27 L RDW 15.4 H Plt Count Seg Neuts % (Manual) Lymphocytes % (Manual) Nucleated RBC % Seg Neutrophils # Man Lymphocytes # (Manual) PT ABG pH POC ABG pCO2 POC ABG pO2 ABG pO2 ABG O2 Saturation ABG Base Excess ABG Hemoglobin ABG Oxyhemoglobin ABG Potassium ABG Chloride ABG Glucose Oxyhemoglobin Carboxyhemoglobin Sodium Potassium 3.4 L Chloride Carbon Dioxide BUN 37 H Creatinine 2.1 H Glucose 160 H POC Glucose 172 H Hemoglobin A1c Lactic Acid Calcium 8.3 L Phosphorus Magnesium Transferrin AST ALT Alkaline Phosphatase Total Creatine Kinase CK-MB (CK-2) Serum Total Protein Total Protein Albumin Tqxqv-5-Vztrzmeux Okznn-5-Lnxiopwfc Gamma Globulins PEP Interpretation HDL Cholesterol TSH Arterial Blood Glucose Arterial Blood Ionized Calcium Urine WBC (Auto) Urine Creatinine Urine Total Protein Crossmatch 05/08/21 05/08/21 05/08/21 05:20 11:35 16:55 WBC RBC Hgb Hct MCH RDW Plt Count Seg Neuts % (Manual) Lymphocytes % (Manual) Nucleated RBC % Seg Neutrophils # Man Lymphocytes # (Manual) PT ABG pH POC ABG pCO2 POC ABG pO2 ABG pO2 ABG O2 Saturation ABG Base Excess ABG Hemoglobin ABG Oxyhemoglobin ABG Potassium ABG Chloride ABG Glucose Oxyhemoglobin Carboxyhemoglobin Sodium Potassium Chloride Carbon Dioxide BUN Creatinine Glucose POC Glucose 148 H 208 H 179 H Hemoglobin A1c Lactic Acid Calcium Phosphorus Magnesium Transferrin AST ALT Alkaline Phosphatase Total Creatine Kinase CK-MB (CK-2) Serum Total Protein Total Protein Albumin Wolof-5-Jzvxbyezn Mqhja-6-Czeeztazn Gamma Globulins PEP Interpretation HDL Cholesterol TSH Arterial Blood Glucose Arterial Blood Ionized Calcium Urine WBC (Auto) Urine Creatinine Urine Total Protein Crossmatch 05/08/21 05/09/21 05/09/21 23:57 05:30 05:30 WBC 12.8 H RBC 2.98 L Hgb 8.1 L Hct 25.4 L MCH 27 L RDW 15.4 H Plt Count Seg Neuts % (Manual) Lymphocytes % (Manual) Nucleated RBC % Seg Neutrophils # Man Lymphocytes # (Manual) PT ABG pH POC ABG pCO2 POC ABG pO2 ABG pO2 ABG O2 Saturation ABG Base Excess ABG Hemoglobin ABG Oxyhemoglobin ABG Potassium ABG Chloride ABG Glucose Oxyhemoglobin Carboxyhemoglobin Sodium 150 H Potassium 3.2 L Chloride 110.2 H Carbon Dioxide BUN 37 H Creatinine 1.8 H Glucose 191 H POC Glucose 183 H Hemoglobin A1c Lactic Acid Calcium Phosphorus Magnesium Transferrin AST ALT Alkaline Phosphatase Total Creatine Kinase CK-MB (CK-2) Serum Total Protein Total Protein Albumin Ecmsp-9-Ujwycrxmn Azbjr-7-Bludnvssc Gamma Globulins PEP Interpretation HDL Cholesterol TSH Arterial Blood Glucose Arterial Blood Ionized Calcium Urine WBC (Auto) Urine Creatinine Urine Total Protein Crossmatch 05/09/21 05:31 WBC RBC Hgb Hct MCH RDW Plt Count Seg Neuts % (Manual) Lymphocytes % (Manual) Nucleated RBC % Seg Neutrophils # Man Lymphocytes # (Manual) PT ABG pH POC ABG pCO2 POC ABG pO2 ABG pO2 ABG O2 Saturation ABG Base Excess ABG Hemoglobin ABG Oxyhemoglobin ABG Potassium ABG Chloride ABG Glucose Oxyhemoglobin Carboxyhemoglobin Sodium Potassium Chloride Carbon Dioxide BUN Creatinine Glucose POC Glucose 120 H Hemoglobin A1c Lactic Acid Calcium Phosphorus Magnesium Transferrin AST ALT Alkaline Phosphatase Total Creatine Kinase CK-MB (CK-2) Serum Total Protein Total Protein Albumin Ujkhk-6-Siiqtbgcm Ajpnk-1-Seaniiisc Gamma Globulins PEP Interpretation HDL Cholesterol TSH Arterial Blood Glucose Arterial Blood Ionized Calcium Urine WBC (Auto) Urine Creatinine Urine Total Protein Crossmatch
[2021-05-09] MEDS: SODIUM BICARBONATE 650 MG TAB PO SCH ×3 (08:39→20:15)
[2021-05-09] MEDS: MIDODRINE 5 MG TAB PO SCH ×2 (08:39→15:49)
[2021-05-09] MEDS: SENNOSIDES/DOCUSATE SODIUM 8.6/50 MG TAB FEEDTUBE SCH ×2 (09:20→22:39)
[2021-05-09] MEDS: FAMOTIDINE 10 MG TAB FEEDTUBE SCH ×2 (09:20→22:38)
[2021-05-09] MEDS: ASPIRIN 81 MG TAB CHEW FEEDTUBE SCH (09:20)
--- NOTE | 2021-05-09 10:38 | Progress Note ---
Assessment and Plan 80 y/o female with altered mental state, severe electrolyte imbalance with presumptive acute renal failure and hypothermia. 05/09/21: Will reach out to neuro for more help. Read their note this am but need a definite plan. Would like to meet/talk with POA about next steps but need a better idea of what her neuro prognosis is. Continue daily PSV trials. Prognosis overall appears to be very guarded to poor. 05/08/21: Continue supportive measures. HD per renal. Follow up neuro recs tomorrow. Need to start talking with family about next steps but need neuro input. Daily pSV to document failing. 05/07/21: Continue supportive measures. HD per renal. Follow up neuro recs tomorrow. Need to start talking with family about next steps but need neuro input. 05/06/21: Await neurology recs now that LINCOLN Could not be done. Based on neurology note, no direct source for stroke on MRA. Patient was seen on this day and can be confirmed by staff. Not sure why my note did not save. 05/05/21: follow up neurology notes. They are discussing with cards the LINCOLN. Continue vent support. Poor prognosis. 05/04/21: follow up MRA when done. LINCOLN pending. HD per renal. Daily PSV trials as tolerated. Poor prognosis given MRI findings and lack of responsiveness off sedation. 05/03/21: Follow up Neurology recs for today. Attempt PSV trials. HD on yesterday. Very very guarded prognosis. 05/02/21: MRI today. Repeat cultures. HD per renal. Once MRI results back will discuss with Neurosurgery to see if anything further should be done. Abx per ID. Overall prognosis is very guarded to poor. 04/29/21: Will reach out to neuro after 24-48 hours post spinal tap pending any change in mentation. If improvement, may need to consider shunt placement. If not, not sure that there is anything they can offer. if they still want MRI, then can obtain. Now spiking temps. Blood cultures and UA. Given time frame in Hospital will place on Vanc and Cefepime. Guarded prognosis. HD per renal. Given anasarca, will ask renal about trying to remove volume. 04/28/21: Will discuss with renal about HD again today. MRI vs LP (large amount). Coags are ok. Will attempt to get at least one of these done today. Patient is still on 80% but sat is 100. Will ask [employer]ERGY CONSERVATION SPECIALIST about placing ART line today. Wean FiO2 as tolerated. Guarded prognosis. 04/27/21: HD today per renal. Vascath placed and awaiting CXR for conformation of good placement (done and good). Vent weaning as tolerated for sats >88%. ABG in the AM. Will check Coags in the am and hopeful these are stable. Platelets need to above 50K. Would like to do large volume spinal tap to see if this helps with mentation. Will also obtain MRI once oxygen requirement im proves. 04/26/21: WIll electively intubate and then obtain MRI. Pending MRI results, will likely order large volume spinal tap to assess if NPH is a factor or not. Guarded prognosis. Electrolytes are improving. 04/25/21: Continue to follow renal recs. Will reach out to POA either today or tomorrow for further updates. Follow up renal recs. Monitor electrolytes and renal function. Guarded prognosis. 1. Neuro-reached out to neuro surgery, placed consult in regards to CT findings 2. Renal-appreciate help and recs, will follow IV hydration recommendations 3. Blood cultures. Urine was negative 4. Jorge Hugger for temp Guarded prognosis CCT 31 minutes. Subjective Date of service: 05/09/21 Principal diagnosis: Acute respiratory failure Interval history: Mental status is unchanged. Fails pressure support with tachypnea Objective Vital Signs - 12hr 05/08/21 05/08/21 05/08/21 23:00 23:30 23:44 Temperature Pulse Rate 91 H 84 85 Respiratory 19 14 Rate Blood Pressure 167/82 152/74 152/74 O2 Sat by Pulse 99 98 98 Oximetry 05/09/21 05/09/21 05/09/21 00:00 00:30 01:00 Temperature 99.7 F H Pulse Rate 91 H 92 H 95 H Respiratory 14 22 15 Rate Blood Pressure 146/84 160/75 163/79 O2 Sat by Pulse 98 98 98 Oximetry 05/09/21 05/09/21 05/09/21 01:30 02:01 02:30 Temperature Pulse Rate 93 H 81 83 Respiratory 14 13 14 Rate Blood Pressure 170/71 131/48 143/61 O2 Sat by Pulse 98 97 98 Oximetry 05/09/21 05/09/21 05/09/21 03:00 03:30 03:40 Temperature 98.8 F Pulse Rate 85 90 Respiratory 14 18 Rate Blood Pressure 152/65 159/84 O2 Sat by Pulse 98 98 Oximetry 05/09/21 05/09/21 05/09/21 04:00 04:30 05:00 Temperature Pulse Rate 87 103 H 81 Respiratory 12 13 16 Rate Blood Pressure 174/78 166/101 143/71 O2 Sat by Pulse 99 98 98 Oximetry 05/09/21 05/09/21 05/09/21 05:30 06:02 06:30 Temperature Pulse Rate 91 H 92 H 94 H Respiratory 14 18 15 Rate Blood Pressure 174/78 131/48 178/91 O2 Sat by Pulse 99 98 100 Oximetry 05/09/21 05/09/21 05/09/21 07:00 07:30 07:34 Temperature 99.1 F Pulse Rate 90 85 Respiratory 22 14 Rate Blood Pressure 174/75 141/63 O2 Sat by Pulse 99 98 Oximetry 05/09/21 05/09/21 05/09/21 07:41 08:00 08:30 Temperature Pulse Rate 83 92 H 87 Respiratory 14 14 Rate Blood Pressure 141/63 179/75 140/70 O2 Sat by Pulse 98 99 98 Oximetry 05/09/21 05/09/21 05/09/21 09:00 09:30 10:00 Temperature Pulse Rate 91 H 86 86 Respiratory 14 14 15 Rate Blood Pressure 150/64 139/60 147/66 O2 Sat by Pulse 98 99 99 Oximetry Constitutional: other (critically ill, somnolent, on vent) Eyes: non-icteric ENT: oropharynx dry Effort: other (tachypneic but not labored) Ascultation: Bilateral: clear Cardiovascular: regular rate and rhythm Gastrointestinal: normoactive bowel sounds Integumentary: normal Extremities: no cyanosis, no edema, pink and warm Neurologic: unable to assess Psychiatric: other (unable to assess) CBC and BMP: 05/09/21 05:30 05/09/21 05:30 ABG, PT/INR, D-dimer: ABG ABG pH 7.487 (7.320-7.450) H 05/02/21 04:34 POC ABG pCO2 35.3 mmHg (32.0-48.0) 05/02/21 04:34 ABG pCO2 31.6 mm Hg 04/21/21 15:47 POC ABG pO2 78.6 mmHg (83-108) L 05/02/21 04:34 ABG pO2 168.1 mm Hg (80.0-90.0) H 04/21/21 15:47 POC ABG HCO3 26.1 05/02/21 04:34 ABG O2 Saturation 96.0 (0-100) 05/02/21 04:34 PT/INR, D-dimer PT 15.3 Sec. (12.2-14.9) H 04/28/21 05:00 INR 1.09 (0.87-1.13) 04/28/21 05:00 Abnormal lab findings: Abnormal Labs 04/20/21 04/20/21 04/20/21 17:10 17:10 17:10 WBC 17.4 H RBC 5.19 H Hgb Hct 46.8 H MCH 27 L RDW 17.2 H Plt Count Seg Neuts % (Manual) 98.0 H Lymphocytes % (Manual) 2.0 L Nucleated RBC % 1.0 H Seg Neutrophils # Man 17.1 H Lymphocytes # (Manual) 0.3 L PT ABG pH POC ABG pCO2 POC ABG pO2 ABG pO2 ABG O2 Saturation ABG Base Excess ABG Hemoglobin ABG Oxyhemoglobin ABG Potassium ABG Chloride ABG Glucose Oxyhemoglobin Carboxyhemoglobin Sodium 173 H* Potassium Chloride 132.9 H Carbon Dioxide 17 L BUN 120 H Creatinine 4.2 H Glucose 762 H* POC Glucose Hemoglobin A1c Lactic Acid Calcium Phosphorus Magnesium 3.80 H Transferrin AST 72 H ALT 63 H Alkaline Phosphatase 148 H Total Creatine Kinase 3697 H CK-MB (CK-2) 36.0 H Serum Total Protein Total Protein Albumin 2.2 L Akond-3-Tprlypciv Hzlbk-7-Guzomwglw Gamma Globulins PEP Interpretation HDL Cholesterol TSH Arterial Blood Glucose Arterial Blood Ionized Calcium Urine WBC (Auto) Urine Creatinine Urine Total Protein Crossmatch 04/20/21 04/20/21 04/20/21 17:10 17:10 18:55 WBC RBC Hgb Hct MCH RDW Plt Count Seg Neuts % (Manual) Lymphocytes % (Manual) Nucleated RBC % Seg Neutrophils # Man Lymphocytes # (Manual) PT ABG pH POC ABG pCO2 POC ABG pO2 ABG pO2 ABG O2 Saturation ABG Base Excess ABG Hemoglobin ABG Oxyhemoglobin ABG Potassium ABG Chloride ABG Glucose Oxyhemoglobin Carboxyhemoglobin Sodium Potassium Chloride Carbon Dioxide BUN Creatinine Glucose POC Glucose 574 H Hemoglobin A1c Lactic Acid 2.60 H* Calcium Phosphorus Magnesium Transferrin AST ALT Alkaline Phosphatase Total Creatine Kinase CK-MB (CK-2) Serum Total Protein Total Protein Albumin Xxtgx-8-Mvydvyjfj Uooah-8-Wcwrohzvu Gamma Globulins PEP Interpretation HDL Cholesterol TSH 6.040 H Arterial Blood Glucose Arterial Blood Ionized Calcium Urine WBC (Auto) Urine Creatinine Urine Total Protein Crossmatch 04/20/21 04/20/21 04/20/21 22:12 22:58 22:58 WBC RBC Hgb Hct MCH RDW Plt Count Seg Neuts % (Manual) Lymphocytes % (Manual) Nucleated RBC % Seg Neutrophils # Man Lymphocytes # (Manual) PT ABG pH POC ABG pCO2 POC ABG pO2 ABG pO2 ABG O2 Saturation ABG Base Excess ABG Hemoglobin ABG Oxyhemoglobin ABG Potassium ABG Chloride ABG Glucose Oxyhemoglobin Carboxyhemoglobin Sodium 172 H* Potassium 3.2 L Chloride 134.2 H Carbon Dioxide 17 L BUN 112 H Creatinine 3.8 H Glucose 803 H* POC Glucose 554 H Hemoglobin A1c Lactic Acid Calcium 8.3 L Phosphorus Magnesium 3.50 H Transferrin AST ALT Alkaline Phosphatase Total Creatine Kinase CK-MB (CK-2) Serum Total Protein Total Protein Albumin Wwmuq-3-Vejwgijna Pwnuz-0-Jskcyecfk Gamma Globulins PEP Interpretation HDL Cholesterol TSH Arterial Blood Glucose Arterial Blood Ionized Calcium Urine WBC (Auto) Urine Creatinine Urine Total Protein Crossmatch 04/21/21 04/21/21 04/21/21 00:14 00:22 02:01 WBC RBC Hgb Hct MCH RDW Plt Count Seg Neuts % (Manual) Lymphocytes % (Manual) Nucleated RBC % Seg Neutrophils # Man Lymphocytes # (Manual) PT ABG pH POC ABG pCO2 POC ABG pO2 ABG pO2 ABG O2 Saturation ABG Base Excess ABG Hemoglobin ABG Oxyhemoglobin ABG Potassium ABG Chloride ABG Glucose Oxyhemoglobin Carboxyhemoglobin Sodium 176 H* 175 H* Potassium 2.9 L* 3.0 L Chloride 139.9 H 136.2 H Carbon Dioxide 17 L 19 L BUN 113 H 112 H Creatinine 3.9 H 3.6 H Glucose 729 H* 582 H* POC Glucose > 600 H Hemoglobin A1c Lactic Acid Calcium Phosphorus Magnesium Transferrin AST ALT Alkaline Phosphatase Total Creatine Kinase CK-MB (CK-2) Serum Total Protein Total Protein Albumin Wdwor-9-Eiokotimv Faxzp-4-Ciqrtcclo Gamma Globulins PEP Interpretation HDL Cholesterol TSH Arterial Blood Glucose Arterial Blood Ionized Calcium Urine WBC (Auto) Urine Creatinine Urine Total Protein Crossmatch 04/21/21 04/21/21 04/21/21 03:11 03:20 03:41 WBC 14.1 H RBC Hgb Hct MCH 27 L RDW 16.8 H Plt Count 114 L Seg Neuts % (Manual) 97.0 H Lymphocytes % (Manual) 3.0 L Nucleated RBC % 1.0 H Seg Neutrophils # Man 13.7 H Lymphocytes # (Manual) 0.4 L PT ABG pH POC ABG pCO2 POC ABG pO2 ABG pO2 52.3 L ABG O2 Saturation 84.5 L ABG Base Excess -2.9 L ABG Hemoglobin ABG Oxyhemoglobin ABG Potassium ABG Chloride ABG Glucose Oxyhemoglobin 82.9 L Carboxyhemoglobin Sodium Potassium Chloride Carbon Dioxide BUN Creatinine Glucose POC Glucose 404 H Hemoglobin A1c Lactic Acid Calcium Phosphorus Magnesium Transferrin AST ALT Alkaline Phosphatase Total Creatine Kinase CK-MB (CK-2) Serum Total Protein Total Protein Albumin Tzgxg-2-Bgnttbqyj Jnveu-7-Hpipxbqye Gamma Globulins PEP Interpretation HDL Cholesterol TSH Arterial Blood Glucose Arterial Blood Ionized Calcium Urine WBC (Auto) Urine Creatinine Urine Total Protein Crossmatch 04/21/21 04/21/21 04/21/21 03:41 04:24 05:45 WBC RBC Hgb Hct MCH RDW Plt Count Seg Neuts % (Manual) Lymphocytes % (Manual) Nucleated RBC % Seg Neutrophils # Man Lymphocytes # (Manual) PT ABG pH POC ABG pCO2 POC ABG pO2 ABG pO2 ABG O2 Saturation ABG Base Excess ABG Hemoglobin ABG Oxyhemoglobin ABG Potassium ABG Chloride ABG Glucose Oxyhemoglobin Carboxyhemoglobin Sodium 179 H* Potassium 2.9 L* Chloride 138.2 H Carbon Dioxide 20 L BUN 111 H Creatinine 3.7 H Glucose 465 H POC Glucose 353 H 280 H Hemoglobin A1c Lactic Acid Calcium Phosphorus Magnesium Transferrin AST 73 H ALT 61 H Alkaline Phosphatase 144 H Total Creatine Kinase CK-MB (CK-2) Serum Total Protein Total Protein Albumin 2.5 L Dhcpm-7-Vyhpyqyvy Mfuvd-3-Ojboctsfo Gamma Globulins PEP Interpretation HDL Cholesterol TSH Arterial Blood Glucose Arterial Blood Ionized Calcium Urine WBC (Auto) Urine Creatinine Urine Total Protein Crossmatch 04/21/21 04/21/21 04/21/21 06:47 08:01 11:11 WBC RBC Hgb Hct MCH RDW Plt Count Seg Neuts % (Manual) Lymphocytes % (Manual) Nucleated RBC % Seg Neutrophils # Man Lymphocytes # (Manual) PT ABG pH POC ABG pCO2 POC ABG pO2 ABG pO2 ABG O2 Saturation ABG Base Excess ABG Hemoglobin ABG Oxyhemoglobin ABG Potassium ABG Chloride ABG Glucose Oxyhemoglobin Carboxyhemoglobin Sodium Potassium Chloride Carbon Dioxide BUN Creatinine Glucose POC Glucose 260 H 68 L Hemoglobin A1c Lactic Acid Calcium Phosphorus Magnesium Transferrin AST ALT Alkaline Phosphatase Total Creatine Kinase CK-MB (CK-2) Serum Total Protein Total Protein Albumin Tuemh-8-Awulcappu Humth-5-Idjrimjwl Gamma Globulins PEP Interpretation HDL Cholesterol TSH Arterial Blood Glucose Arterial Blood Ionized Calcium Urine WBC (Auto) Urine Creatinine 44.3 H Urine Total Protein 12 H Crossmatch 04/21/21 04/21/21 04/21/21 12:51 13:41 14:40 WBC RBC Hgb Hct MCH RDW Plt Count Seg Neuts % (Manual) Lymphocytes % (Manual) Nucleated RBC % Seg Neutrophils # Man Lymphocytes # (Manual) PT ABG pH 7.275 L POC ABG pCO2 POC ABG pO2 63.4 L ABG pO2 ABG O2 Saturation ABG Base Excess ABG Hemoglobin 8.4 L ABG Oxyhemoglobin 89.5 L ABG Potassium ABG Chloride 108.0 H ABG Glucose 404 H Oxyhemoglobin Carboxyhemoglobin Sodium Potassium Chloride Carbon Dioxide BUN Creatinine Glucose POC Glucose 146 H 186 H Hemoglobin A1c Lactic Acid Calcium Phosphorus Magnesium Transferrin AST ALT Alkaline Phosphatase Total Creatine Kinase CK-MB (CK-2) Serum Total Protein Total Protein Albumin Gales-8-Jidmmvcdy Znuls-3-Avyqkewsn Gamma Globulins PEP Interpretation HDL Cholesterol TSH Arterial Blood Glucose 404 H Arterial Blood Ionized Calcium Urine WBC (Auto) Urine Creatinine Urine Total Protein Crossmatch 04/21/21 04/21/21 04/21/21 15:47 16:25 17:57 WBC RBC Hgb Hct MCH RDW Plt Count Seg Neuts % (Manual) Lymphocytes % (Manual) Nucleated RBC % Seg Neutrophils # Man Lymphocytes # (Manual) PT ABG pH 7.486 H POC ABG pCO2 POC ABG pO2 ABG pO2 168.1 H ABG O2 Saturation 99.1 H ABG Base Excess ABG Hemoglobin 8.9 L ABG Oxyhemoglobin ABG Potassium ABG Chloride ABG Glucose Oxyhemoglobin Carboxyhemoglobin Sodium Potassium Chloride Carbon Dioxide BUN Creatinine Glucose POC Glucose 172 H 143 H Hemoglobin A1c Lactic Acid Calcium Phosphorus Magnesium Transferrin AST ALT Alkaline Phosphatase Total Creatine Kinase CK-MB (CK-2) Serum Total Protein Total Protein Albumin Vwiry-1-Qzbogakoa Wpeyt-7-Fejexwclf Gamma Globulins PEP Interpretation HDL Cholesterol TSH Arterial Blood Glucose Arterial Blood Ionized Calcium Urine WBC (Auto) Urine Creatinine Urine Total Protein Crossmatch 04/21/21 04/21/21 04/21/21 18:49 19:10 20:26 WBC RBC Hgb Hct MCH RDW Plt Count Seg Neuts % (Manual) Lymphocytes % (Manual) Nucleated RBC % Seg Neutrophils # Man Lymphocytes # (Manual) PT ABG pH POC ABG pCO2 POC ABG pO2 ABG pO2 ABG O2 Saturation ABG Base Excess ABG Hemoglobin ABG Oxyhemoglobin ABG Potassium ABG Chloride ABG Glucose Oxyhemoglobin Carboxyhemoglobin Sodium 174 H* Potassium 7.2 H* D Chloride 138.2 H Carbon Dioxide 21 L BUN 99 H Creatinine 4.0 H Glucose 157 H POC Glucose 126 H 190 H Hemoglobin A1c Lactic Acid Calcium Phosphorus Magnesium Transferrin AST 134 H ALT 71 H Alkaline Phosphatase 135 H Total Creatine Kinase 3504 H CK-MB (CK-2) Serum Total Protein Total Protein Albumin 2.2 L Bksko-6-Dwkhtilau Hqmhg-6-Myieoguux Gamma Globulins PEP Interpretation HDL Cholesterol TSH Arterial Blood Glucose Arterial Blood Ionized Calcium Urine WBC (Auto) Urine Creatinine Urine Total Protein Crossmatch 04/21/21 04/21/21 04/21/21 20:53 21:52 22:55 WBC RBC Hgb Hct MCH RDW Plt Count Seg Neuts % (Manual) Lymphocytes % (Manual) Nucleated RBC % Seg Neutrophils # Man Lymphocytes # (Manual) PT ABG pH POC ABG pCO2 POC ABG pO2 ABG pO2 ABG O2 Saturation ABG Base Excess ABG Hemoglobin ABG Oxyhemoglobin ABG Potassium ABG Chloride ABG Glucose Oxyhemoglobin Carboxyhemoglobin Sodium Potassium Chloride Carbon Dioxide BUN Creatinine Glucose POC Glucose 116 H 135 H 158 H Hemoglobin A1c Lactic Acid Calcium Phosphorus Magnesium Transferrin AST ALT Alkaline Phosphatase Total Creatine Kinase CK-MB (CK-2) Serum Total Protein Total Protein Albumin Nccmp-8-Dvfyliufb Itfup-2-Tdmoylqtt Gamma Globulins PEP Interpretation HDL Cholesterol TSH Arterial Blood Glucose Arterial Blood Ionized Calcium Urine WBC (Auto) Urine Creatinine Urine Total Protein Crossmatch 04/21/21 04/22/21 04/22/21 23:00 00:01 00:39 WBC RBC Hgb Hct MCH RDW Plt Count Seg Neuts % (Manual) Lymphocytes % (Manual) Nucleated RBC % Seg Neutrophils # Man Lymphocytes # (Manual) PT ABG pH POC ABG pCO2 POC ABG pO2 ABG pO2 ABG O2 Saturation ABG Base Excess ABG Hemoglobin ABG Oxyhemoglobin ABG Potassium ABG Chloride ABG Glucose Oxyhemoglobin Carboxyhemoglobin Sodium 176 H* 171 H* Potassium Chloride 140.0 H Carbon Dioxide 20 L BUN 98 H Creatinine 3.9 H Glucose 206 H POC Glucose 182 H Hemoglobin A1c Lactic Acid Calcium Phosphorus Magnesium Transferrin AST ALT Alkaline Phosphatase Total Creatine Kinase 3240 H CK-MB (CK-2) Serum Total Protein Total Protein Albumin Qmknb-4-Nwwatoenb Ezkmu-0-Gbjcklaik Gamma Globulins PEP Interpretation HDL Cholesterol TSH Arterial Blood Glucose Arterial Blood Ionized Calcium Urine WBC (Auto) Urine Creatinine Urine Total Protein Crossmatch 04/22/21 04/22/21 04/22/21 00:58 01:04 04:52 WBC 11.2 H RBC Hgb Hct 44.3 H MCH 27 L RDW 17.1 H Plt Count 86 L Seg Neuts % (Manual) 86.0 H Lymphocytes % (Manual) 13.0 L Nucleated RBC % Seg Neutrophils # Man 9.6 H Lymphocytes # (Manual) PT ABG pH POC ABG pCO2 POC ABG pO2 ABG pO2 ABG O2 Saturation ABG Base Excess ABG Hemoglobin ABG Oxyhemoglobin ABG Potassium ABG Chloride ABG Glucose Oxyhemoglobin Carboxyhemoglobin Sodium Potassium Chloride Carbon Dioxide BUN Creatinine Glucose POC Glucose 176 H 143 H Hemoglobin A1c Lactic Acid Calcium Phosphorus Magnesium Transferrin AST ALT Alkaline Phosphatase Total Creatine Kinase CK-MB (CK-2) Serum Total Protein Total Protein Albumin Nybgr-2-Lewehbuwc Indau-9-Vknwuecld Gamma Globulins PEP Interpretation HDL Cholesterol TSH Arterial Blood Glucose Arterial Blood Ionized Calcium Urine WBC (Auto) Urine Creatinine Urine Total Protein Crossmatch 04/22/21 04/22/21 04/22/21 06:07 06:09 07:18 WBC RBC Hgb Hct MCH RDW Plt Count Seg Neuts % (Manual) Lymphocytes % (Manual) Nucleated RBC % Seg Neutrophils # Man Lymphocytes # (Manual) PT ABG pH POC ABG pCO2 POC ABG pO2 ABG pO2 ABG O2 Saturation ABG Base Excess ABG Hemoglobin ABG Oxyhemoglobin ABG Potassium ABG Chloride ABG Glucose Oxyhemoglobin Carboxyhemoglobin Sodium Potassium Chloride Carbon Dioxide BUN Creatinine Glucose POC Glucose 206 H 163 H 158 H Hemoglobin A1c Lactic Acid Calcium Phosphorus Magnesium Transferrin AST ALT Alkaline Phosphatase Total Creatine Kinase CK-MB (CK-2) Serum Total Protein Total Protein Albumin Eurll-6-Janaxpmqj Dszrg-0-Udnaxtwqk Gamma Globulins PEP Interpretation HDL Cholesterol TSH Arterial Blood Glucose Arterial Blood Ionized Calcium Urine WBC (Auto) Urine Creatinine Urine Total Protein Crossmatch 04/22/21 04/22/21 04/22/21 08:59 08:59 08:59 WBC RBC Hgb Hct MCH RDW Plt Count Seg Neuts % (Manual) Lymphocytes % (Manual) Nucleated RBC % Seg Neutrophils # Man Lymphocytes # (Manual) PT ABG pH POC ABG pCO2 POC ABG pO2 ABG pO2 ABG O2 Saturation ABG Base Excess ABG Hemoglobin ABG Oxyhemoglobin ABG Potassium ABG Chloride ABG Glucose Oxyhemoglobin Carboxyhemoglobin Sodium 169 H* Potassium 3.5 L Chloride 134.5 H Carbon Dioxide 20 L BUN 95 H Creatinine 3.6 H Glucose 151 H POC Glucose Hemoglobin A1c Lactic Acid Calcium Phosphorus Magnesium Transferrin AST 121 H ALT 75 H Alkaline Phosphatase 137 H Total Creatine Kinase 3105 H CK-MB (CK-2) Serum Total Protein 5.5 L Total Protein 6.0 L Albumin 2.8 L 2.1 L Kfkxg-4-Uwyepimau 0.6 H Cgtnn-4-Kvbpauyfo 1.0 H Gamma Globulins 0.6 L PEP Interpretation see below H HDL Cholesterol TSH Arterial Blood Glucose Arterial Blood Ionized Calcium Urine WBC (Auto) Urine Creatinine Urine Total Protein Crossmatch 04/22/21 04/22/21 04/22/21 09:44 10:24 12:20 WBC RBC Hgb Hct MCH RDW Plt Count Seg Neuts % (Manual) Lymphocytes % (Manual) Nucleated RBC % Seg Neutrophils # Man Lymphocytes # (Manual) PT ABG pH POC ABG pCO2 POC ABG pO2 ABG pO2 ABG O2 Saturation ABG Base Excess ABG Hemoglobin ABG Oxyhemoglobin ABG Potassium ABG Chloride ABG Glucose Oxyhemoglobin Carboxyhemoglobin Sodium Potassium Chloride Carbon Dioxide BUN Creatinine Glucose POC Glucose 107 H 131 H Hemoglobin A1c Lactic Acid Calcium Phosphorus Magnesium 2.80 H Transferrin AST ALT Alkaline Phosphatase Total Creatine Kinase CK-MB (CK-2) Serum Total Protein Total Protein Albumin Oavum-0-Ecezqjmql Kgxvb-9-Luuzpnske Gamma Globulins PEP Interpretation HDL Cholesterol TSH Arterial Blood Glucose Arterial Blood Ionized Calcium Urine WBC (Auto) Urine Creatinine Urine Total Protein Crossmatch 04/22/21 04/22/21 04/22/21 13:19 14:16 15:22 WBC RBC Hgb Hct MCH RDW Plt Count Seg Neuts % (Manual) Lymphocytes % (Manual) Nucleated RBC % Seg Neutrophils # Man Lymphocytes # (Manual) PT ABG pH POC ABG pCO2 POC ABG pO2 ABG pO2 ABG O2 Saturation ABG Base Excess ABG Hemoglobin ABG Oxyhemoglobin ABG Potassium ABG Chloride ABG Glucose Oxyhemoglobin Carboxyhemoglobin Sodium Potassium Chloride Carbon Dioxide BUN Creatinine Glucose POC Glucose 147 H 154 H 136 H Hemoglobin A1c Lactic Acid Calcium Phosphorus Magnesium Transferrin AST ALT Alkaline Phosphatase Total Creatine Kinase CK-MB (CK-2) Serum Total Protein Total Protein Albumin Cwfip-9-Onfpvmznh Xfjhz-1-Tgofhpvdr Gamma Globulins PEP Interpretation HDL Cholesterol TSH Arterial Blood Glucose Arterial Blood Ionized Calcium Urine WBC (Auto) Urine Creatinine Urine Total Protein Crossmatch 04/22/21 04/22/21 04/22/21 15:55 15:55 16:22 WBC RBC Hgb Hct MCH RDW Plt Count Seg Neuts % (Manual) Lymphocytes % (Manual) Nucleated RBC % Seg Neutrophils # Man Lymphocytes # (Manual) PT ABG pH POC ABG pCO2 POC ABG pO2 ABG pO2 ABG O2 Saturation ABG Base Excess ABG Hemoglobin ABG Oxyhemoglobin ABG Potassium ABG Chloride ABG Glucose Oxyhemoglobin Carboxyhemoglobin Sodium 169 H* Potassium Chloride 133.5 H Carbon Dioxide 19 L BUN 94 H Creatinine 3.8 H Glucose 150 H POC Glucose 140 H Hemoglobin A1c 17.1 H Lactic Acid Calcium Phosphorus Magnesium Transferrin AST ALT Alkaline Phosphatase Total Creatine Kinase CK-MB (CK-2) Serum Total Protein Total Protein Albumin Iukki-0-Okureiqyd Dqwsn-4-Rlcmucgze Gamma Globulins PEP Interpretation HDL Cholesterol TSH Arterial Blood Glucose Arterial Blood Ionized Calcium Urine WBC (Auto) Urine Creatinine Urine Total Protein Crossmatch 04/22/21 04/22/21 04/22/21 18:11 18:26 23:19 WBC RBC Hgb Hct MCH RDW Plt Count Seg Neuts % (Manual) Lymphocytes % (Manual) Nucleated RBC % Seg Neutrophils # Man Lymphocytes # (Manual) PT ABG pH POC ABG pCO2 POC ABG pO2 ABG pO2 ABG O2 Saturation ABG Base Excess ABG Hemoglobin ABG Oxyhemoglobin ABG Potassium ABG Chloride ABG Glucose Oxyhemoglobin Carboxyhemoglobin Sodium Potassium Chloride Carbon Dioxide BUN Creatinine Glucose POC Glucose 146 H 188 H Hemoglobin A1c Lactic Acid Calcium Phosphorus Magnesium Transferrin AST ALT Alkaline Phosphatase Total Creatine Kinase 2497 H CK-MB (CK-2) Serum Total Protein Total Protein Albumin Jrxmr-5-Qnagafiid Ccpds-6-Pcqcurgjy Gamma Globulins PEP Interpretation HDL Cholesterol TSH Arterial Blood Glucose Arterial Blood Ionized Calcium Urine WBC (Auto) Urine Creatinine Urine Total Protein Crossmatch 04/23/21 04/23/21 04/23/21 00:27 05:23 07:50 WBC RBC Hgb Hct MCH RDW Plt Count Seg Neuts % (Manual) Lymphocytes % (Manual) Nucleated RBC % Seg Neutrophils # Man Lymphocytes # (Manual) PT ABG pH POC ABG pCO2 POC ABG pO2 ABG pO2 ABG O2 Saturation ABG Base Excess ABG Hemoglobin ABG Oxyhemoglobin ABG Potassium ABG Chloride ABG Glucose Oxyhemoglobin Carboxyhemoglobin Sodium 162 H* Potassium Chloride Carbon Dioxide BUN Creatinine Glucose POC Glucose 212 H 239 H Hemoglobin A1c Lactic Acid Calcium Phosphorus Magnesium Transferrin AST ALT Alkaline Phosphatase Total Creatine Kinase CK-MB (CK-2) Serum Total Protein Total Protein Albumin Tcxvm-1-Qnwhbgrkj Dapps-3-Aocughtmv Gamma Globulins PEP Interpretation HDL Cholesterol TSH Arterial Blood Glucose Arterial Blood Ionized Calcium Urine WBC (Auto) Urine Creatinine Urine Total Protein Crossmatch 04/23/21 04/23/21 04/23/21 08:13 08:13 08:13 WBC 11.9 H RBC Hgb Hct MCH 26 L RDW 16.5 H Plt Count 72 L Seg Neuts % (Manual) 80.0 H Lymphocytes % (Manual) 5.0 L Nucleated RBC % Seg Neutrophils # Man 9.5 H Lymphocytes # (Manual) 0.6 L PT ABG pH POC ABG pCO2 POC ABG pO2 ABG pO2 ABG O2 Saturation ABG Base Excess ABG Hemoglobin ABG Oxyhemoglobin ABG Potassium ABG Chloride ABG Glucose Oxyhemoglobin Carboxyhemoglobin Sodium 164 H* Potassium Chloride 128.0 H Carbon Dioxide 21 L BUN 93 H Creatinine 3.8 H Glucose 293 H POC Glucose Hemoglobin A1c Lactic Acid Calcium Phosphorus Magnesium Transferrin AST 99 H ALT 70 H Alkaline Phosphatase 147 H Total Creatine Kinase 1803 H CK-MB (CK-2) Serum Total Protein Total Protein 6.1 L Albumin 2.0 L Rvjrs-2-Mvdrdxjom Noids-5-Fbkunfgvv Gamma Globulins PEP Interpretation HDL Cholesterol TSH Arterial Blood Glucose Arterial Blood Ionized Calcium Urine WBC (Auto) Urine Creatinine Urine Total Protein Crossmatch 04/23/21 04/23/21 04/23/21 12:06 17:35 18:17 WBC RBC Hgb Hct MCH RDW Plt Count Seg Neuts % (Manual) Lymphocytes % (Manual) Nucleated RBC % Seg Neutrophils # Man Lymphocytes # (Manual) PT ABG pH POC ABG pCO2 POC ABG pO2 ABG pO2 ABG O2 Saturation ABG Base Excess ABG Hemoglobin ABG Oxyhemoglobin ABG Potassium ABG Chloride ABG Glucose Oxyhemoglobin Carboxyhemoglobin Sodium 160 H Potassium Chloride Carbon Dioxide BUN Creatinine Glucose POC Glucose 311 H 370 H Hemoglobin A1c Lactic Acid Calcium Phosphorus Magnesium Transferrin AST ALT Alkaline Phosphatase Total Creatine Kinase CK-MB (CK-2) Serum Total Protein Total Protein Albumin Hdkgk-0-Fvldxktil Oinzs-3-Ipnfqmiyh Gamma Globulins PEP Interpretation HDL Cholesterol TSH Arterial Blood Glucose Arterial Blood Ionized Calcium Urine WBC (Auto) Urine Creatinine Urine Total Protein Crossmatch 04/24/21 04/24/21 04/24/21 02:13 06:00 06:00 WBC RBC Hgb Hct MCH 27 L RDW 17.0 H Plt Count 58 L Seg Neuts % (Manual) Lymphocytes % (Manual) 2.0 L Nucleated RBC % Seg Neutrophils # Man 8.9 H Lymphocytes # (Manual) 0.2 L PT ABG pH POC ABG pCO2 POC ABG pO2 ABG pO2 ABG O2 Saturation ABG Base Excess ABG Hemoglobin ABG Oxyhemoglobin ABG Potassium ABG Chloride ABG Glucose Oxyhemoglobin Carboxyhemoglobin Sodium 160 H Potassium Chloride Carbon Dioxide BUN Creatinine Glucose POC Glucose Hemoglobin A1c Lactic Acid Calcium Phosphorus Magnesium 2.90 H Transferrin AST ALT Alkaline Phosphatase Total Creatine Kinase CK-MB (CK-2) Serum Total Protein Total Protein Albumin Mcglt-7-Oqxdezegn Lxuye-3-Ggcrjyysm Gamma Globulins PEP Interpretation HDL Cholesterol TSH Arterial Blood Glucose Arterial Blood Ionized Calcium Urine WBC (Auto) Urine Creatinine Urine Total Protein Crossmatch 04/24/21 04/24/21 04/24/21 07:46 08:15 11:34 WBC RBC Hgb Hct MCH RDW Plt Count Seg Neuts % (Manual) Lymphocytes % (Manual) Nucleated RBC % Seg Neutrophils # Man Lymphocytes # (Manual) PT ABG pH POC ABG pCO2 POC ABG pO2 ABG pO2 ABG O2 Saturation ABG Base Excess ABG Hemoglobin ABG Oxyhemoglobin ABG Potassium ABG Chloride ABG Glucose Oxyhemoglobin Carboxyhemoglobin Sodium 159 H Potassium Chloride 125.6 H Carbon Dioxide 19 L BUN 94 H Creatinine 3.7 H Glucose 514 H* POC Glucose 395 H 422 H Hemoglobin A1c Lactic Acid Calcium Phosphorus Magnesium Transferrin AST ALT 61 H Alkaline Phosphatase 155 H Total Creatine Kinase CK-MB (CK-2) Serum Total Protein Total Protein 6.1 L Albumin 1.5 L Fhehr-0-Mxscxbfrx Hphmd-2-Bricemjbq Gamma Globulins PEP Interpretation HDL Cholesterol TSH Arterial Blood Glucose Arterial Blood Ionized Calcium Urine WBC (Auto) Urine Creatinine Urine Total Protein Crossmatch 04/24/21 04/24/21 04/24/21 13:11 14:01 15:03 WBC RBC Hgb Hct MCH RDW Plt Count Seg Neuts % (Manual) Lymphocytes % (Manual) Nucleated RBC % Seg Neutrophils # Man Lymphocytes # (Manual) PT ABG pH POC ABG pCO2 POC ABG pO2 ABG pO2 ABG O2 Saturation ABG Base Excess ABG Hemoglobin ABG Oxyhemoglobin ABG Potassium ABG Chloride ABG Glucose Oxyhemoglobin Carboxyhemoglobin Sodium Potassium Chloride Carbon Dioxide BUN Creatinine Glucose POC Glucose 384 H 423 H 418 H Hemoglobin A1c Lactic Acid Calcium Phosphorus Magnesium Transferrin AST ALT Alkaline Phosphatase Total Creatine Kinase CK-MB (CK-2) Serum Total Protein Total Protein Albumin Jejnx-5-Pjonlkebx Ldsxd-9-Elvsdqtxz Gamma Globulins PEP Interpretation HDL Cholesterol TSH Arterial Blood Glucose Arterial Blood Ionized Calcium Urine WBC (Auto) Urine Creatinine Urine Total Protein Crossmatch 04/24/21 04/24/21 04/24/21 17:29 18:28 19:41 WBC RBC Hgb Hct MCH RDW Plt Count Seg Neuts % (Manual) Lymphocytes % (Manual) Nucleated RBC % Seg Neutrophils # Man Lymphocytes # (Manual) PT ABG pH POC ABG pCO2 POC ABG pO2 ABG pO2 ABG O2 Saturation ABG Base Excess ABG Hemoglobin ABG Oxyhemoglobin ABG Potassium ABG Chloride ABG Glucose Oxyhemoglobin Carboxyhemoglobin Sodium Potassium Chloride Carbon Dioxide BUN Creatinine Glucose POC Glucose 335 H 321 H Hemoglobin A1c Lactic Acid Calcium Phosphorus Magnesium Transferrin 112 L AST ALT Alkaline Phosphatase Total Creatine Kinase CK-MB (CK-2) Serum Total Protein Total Protein Albumin Bfbbs-3-Rjnimtryv Ztgur-5-Imbsqewqd Gamma Globulins PEP Interpretation HDL Cholesterol TSH Arterial Blood Glucose Arterial Blood Ionized Calcium Urine WBC (Auto) Urine Creatinine Urine Total Protein Crossmatch 04/24/21 04/25/21 04/25/21 22:33 01:28 02:28 WBC RBC Hgb Hct MCH RDW Plt Count Seg Neuts % (Manual) Lymphocytes % (Manual) Nucleated RBC % Seg Neutrophils # Man Lymphocytes # (Manual) PT ABG pH POC ABG pCO2 POC ABG pO2 ABG pO2 ABG O2 Saturation ABG Base Excess ABG Hemoglobin ABG Oxyhemoglobin ABG Potassium ABG Chloride ABG Glucose Oxyhemoglobin Carboxyhemoglobin Sodium Potassium Chloride Carbon Dioxide BUN Creatinine Glucose POC Glucose 349 H 283 H 247 H Hemoglobin A1c Lactic Acid Calcium Phosphorus Magnesium Transferrin AST ALT Alkaline Phosphatase Total Creatine Kinase CK-MB (CK-2) Serum Total Protein Total Protein Albumin Hqsxt-3-Rcwpjuhkz Iagdy-4-Igellqjty Gamma Globulins PEP Interpretation HDL Cholesterol TSH Arterial Blood Glucose Arterial Blood Ionized Calcium Urine WBC (Auto) Urine Creatinine Urine Total Protein Crossmatch 04/25/21 04/25/21 04/25/21 03:25 04:22 05:40 WBC RBC Hgb Hct MCH RDW Plt Count Seg Neuts % (Manual) Lymphocytes % (Manual) Nucleated RBC % Seg Neutrophils # Man Lymphocytes # (Manual) PT ABG pH POC ABG pCO2 POC ABG pO2 ABG pO2 ABG O2 Saturation ABG Base Excess ABG Hemoglobin ABG Oxyhemoglobin ABG Potassium ABG Chloride ABG Glucose Oxyhemoglobin Carboxyhemoglobin Sodium Potassium Chloride Carbon Dioxide BUN Creatinine Glucose POC Glucose 196 H 207 H 204 H Hemoglobin A1c Lactic Acid Calcium Phosphorus Magnesium Transferrin AST ALT Alkaline Phosphatase Total Creatine Kinase CK-MB (CK-2) Serum Total Protein Total Protein Albumin Gsyoo-5-Akuchsapx Czwmc-0-Bvzixnaow Gamma Globulins PEP Interpretation HDL Cholesterol TSH Arterial Blood Glucose Arterial Blood Ionized Calcium Urine WBC (Auto) Urine Creatinine Urine Total Protein Crossmatch 04/25/21 04/25/21 04/25/21 05:45 06:43 07:37 WBC RBC Hgb Hct MCH 27 L RDW 17.0 H Plt Count 64 L Seg Neuts % (Manual) 84.0 H Lymphocytes % (Manual) 6.0 L Nucleated RBC % 1.0 H Seg Neutrophils # Man Lymphocytes # (Manual) 0.4 L PT ABG pH POC ABG pCO2 POC ABG pO2 ABG pO2 ABG O2 Saturation ABG Base Excess ABG Hemoglobin ABG Oxyhemoglobin ABG Potassium ABG Chloride ABG Glucose Oxyhemoglobin Carboxyhemoglobin Sodium Potassium Chloride Carbon Dioxide BUN Creatinine Glucose POC Glucose 238 H 201 H Hemoglobin A1c Lactic Acid Calcium Phosphorus Magnesium Transferrin AST ALT Alkaline Phosphatase Total Creatine Kinase CK-MB (CK-2) Serum Total Protein Total Protein Albumin Yfgli-1-Nydisypun Exhny-6-Xfxvkjqzt Gamma Globulins PEP Interpretation HDL Cholesterol TSH Arterial Blood Glucose Arterial Blood Ionized Calcium Urine WBC (Auto) Urine Creatinine Urine Total Protein Crossmatch 04/25/21 04/25/21 04/25/21 08:11 08:11 08:41 WBC RBC Hgb Hct MCH RDW Plt Count Seg Neuts % (Manual) Lymphocytes % (Manual) Nucleated RBC % Seg Neutrophils # Man Lymphocytes # (Manual) PT ABG pH POC ABG pCO2 POC ABG pO2 ABG pO2 ABG O2 Saturation ABG Base Excess ABG Hemoglobin ABG Oxyhemoglobin ABG Potassium ABG Chloride ABG Glucose Oxyhemoglobin Carboxyhemoglobin Sodium 148 H D Potassium Chloride 115.7 H Carbon Dioxide 21 L BUN 83 H Creatinine 3.6 H Glucose 247 H POC Glucose 220 H Hemoglobin A1c Lactic Acid Calcium Phosphorus Magnesium 2.50 H Transferrin AST 63 H ALT 62 H Alkaline Phosphatase 143 H Total Creatine Kinase CK-MB (CK-2) Serum Total Protein Total Protein 5.4 L Albumin 1.4 L Wmfmw-7-Qzlfzkazn Uzdzr-4-Wsyidszkl Gamma Globulins PEP Interpretation HDL Cholesterol TSH Arterial Blood Glucose Arterial Blood Ionized Calcium Urine WBC (Auto) Urine Creatinine Urine Total Protein Crossmatch 04/25/21 04/25/21 04/25/21 09:22 10:31 11:44 WBC RBC Hgb Hct MCH RDW Plt Count Seg Neuts % (Manual) Lymphocytes % (Manual) Nucleated RBC % Seg Neutrophils # Man Lymphocytes # (Manual) PT ABG pH POC ABG pCO2 POC ABG pO2 ABG pO2 ABG O2 Saturation ABG Base Excess ABG Hemoglobin ABG Oxyhemoglobin ABG Potassium ABG Chloride ABG Glucose Oxyhemoglobin Carboxyhemoglobin Sodium Potassium Chloride Carbon Dioxide BUN Creatinine Glucose POC Glucose 228 H 215 H 191 H Hemoglobin A1c Lactic Acid Calcium Phosphorus Magnesium Transferrin AST ALT Alkaline Phosphatase Total Creatine Kinase CK-MB (CK-2) Serum Total Protein Total Protein Albumin Iklks-1-Ypgbpqqhw Jsidu-4-Emshudplk Gamma Globulins PEP Interpretation HDL Cholesterol TSH Arterial Blood Glucose Arterial Blood Ionized Calcium Urine WBC (Auto) Urine Creatinine Urine Total Protein Crossmatch 04/25/21 04/25/21 04/25/21 12:23 13:48 14:11 WBC RBC Hgb Hct MCH RDW Plt Count Seg Neuts % (Manual) Lymphocytes % (Manual) Nucleated RBC % Seg Neutrophils # Man Lymphocytes # (Manual) PT ABG pH POC ABG pCO2 POC ABG pO2 ABG pO2 ABG O2 Saturation ABG Base Excess ABG Hemoglobin ABG Oxyhemoglobin ABG Potassium ABG Chloride ABG Glucose Oxyhemoglobin Carboxyhemoglobin Sodium Potassium Chloride Carbon Dioxide BUN Creatinine Glucose POC Glucose 229 H 177 H 161 H Hemoglobin A1c Lactic Acid Calcium Phosphorus Magnesium Transferrin AST ALT Alkaline Phosphatase Total Creatine Kinase CK-MB (CK-2) Serum Total Protein Total Protein Albumin Alxvb-2-Zizqombyu Jrxzj-2-Okfwfjpkw Gamma Globulins PEP Interpretation HDL Cholesterol TSH Arterial Blood Glucose Arterial Blood Ionized Calcium Urine WBC (Auto) Urine Creatinine Urine Total Protein Crossmatch 04/25/21 04/25/21 04/26/21 18:01 21:31 01:19 WBC RBC Hgb Hct MCH RDW Plt Count Seg Neuts % (Manual) Lymphocytes % (Manual) Nucleated RBC % Seg Neutrophils # Man Lymphocytes # (Manual) PT ABG pH POC ABG pCO2 POC ABG pO2 ABG pO2 ABG O2 Saturation ABG Base Excess ABG Hemoglobin ABG Oxyhemoglobin ABG Potassium ABG Chloride ABG Glucose Oxyhemoglobin Carboxyhemoglobin Sodium Potassium Chloride Carbon Dioxide BUN Creatinine Glucose POC Glucose 264 H 371 H 356 H Hemoglobin A1c Lactic Acid Calcium Phosphorus Magnesium Transferrin AST ALT Alkaline Phosphatase Total Creatine Kinase CK-MB (CK-2) Serum Total Protein Total Protein Albumin Uhyim-2-Esjneipgy Piynl-3-Ryigjhmgc Gamma Globulins PEP Interpretation HDL Cholesterol TSH Arterial Blood Glucose Arterial Blood Ionized Calcium Urine WBC (Auto) Urine Creatinine Urine Total Protein Crossmatch 04/26/21 04/26/21 04/26/21 06:31 09:13 09:33 WBC RBC Hgb Hct MCH 27 L RDW 16.9 H Plt Count 58 L Seg Neuts % (Manual) 77.0 H Lymphocytes % (Manual) 4.0 L Nucleated RBC % 2.0 H Seg Neutrophils # Man Lymphocytes # (Manual) 0.3 L PT ABG pH POC ABG pCO2 POC ABG pO2 ABG pO2 ABG O2 Saturation ABG Base Excess ABG Hemoglobin ABG Oxyhemoglobin ABG Potassium ABG Chloride ABG Glucose Oxyhemoglobin Carboxyhemoglobin Sodium Potassium Chloride Carbon Dioxide BUN Creatinine Glucose POC Glucose 428 H 454 H Hemoglobin A1c Lactic Acid Calcium Phosphorus Magnesium Transferrin AST ALT Alkaline Phosphatase Total Creatine Kinase CK-MB (CK-2) Serum Total Protein Total Protein Albumin Qagmy-0-Kmehussdi Skgzv-8-Egeffrchw Gamma Globulins PEP Interpretation HDL Cholesterol TSH Arterial Blood Glucose Arterial Blood Ionized Calcium Urine WBC (Auto) Urine Creatinine Urine Total Protein Crossmatch 04/26/21 04/26/21 04/26/21 09:33 09:33 11:00 WBC RBC Hgb Hct MCH RDW Plt Count Seg Neuts % (Manual) Lymphocytes % (Manual) Nucleated RBC % Seg Neutrophils # Man Lymphocytes # (Manual) PT ABG pH 7.281 L POC ABG pCO2 POC ABG pO2 66.4 L ABG pO2 ABG O2 Saturation ABG Base Excess ABG Hemoglobin 10.9 L ABG Oxyhemoglobin 91 L ABG Potassium ABG Chloride ABG Glucose 521 H Oxyhemoglobin Carboxyhemoglobin Sodium Potassium Chloride Carbon Dioxide 19 L BUN 98 H Creatinine 3.8 H Glucose 530 H* POC Glucose Hemoglobin A1c Lactic Acid Calcium 8.1 L Phosphorus 5.60 H D Magnesium Transferrin AST 60 H ALT 72 H Alkaline Phosphatase 168 H Total Creatine Kinase CK-MB (CK-2) Serum Total Protein Total Protein 4.6 L Albumin 1.7 L Rcdgo-1-Mkpkfnxia Trggx-4-Rwfexjdzi Gamma Globulins PEP Interpretation HDL Cholesterol TSH Arterial Blood Glucose 521 H Arterial Blood Ionized Calcium Urine WBC (Auto) Urine Creatinine Urine Total Protein Crossmatch 04/26/21 04/26/21 04/26/21 12:36 15:39 16:18 WBC RBC Hgb Hct MCH RDW Plt Count Seg Neuts % (Manual) Lymphocytes % (Manual) Nucleated RBC % Seg Neutrophils # Man Lymphocytes # (Manual) PT ABG pH 7.275 L POC ABG pCO2 POC ABG pO2 63.4 L ABG pO2 ABG O2 Saturation ABG Base Excess ABG Hemoglobin 8.4 L ABG Oxyhemoglobin 89.5 L ABG Potassium ABG Chloride 108.0 H ABG Glucose 404 H Oxyhemoglobin Carboxyhemoglobin Sodium Potassium Chloride Carbon Dioxide BUN Creatinine Glucose POC Glucose 414 H 324 H Hemoglobin A1c Lactic Acid Calcium Phosphorus Magnesium Transferrin AST ALT Alkaline Phosphatase Total Creatine Kinase CK-MB (CK-2) Serum Total Protein Total Protein Albumin Imqph-0-Dplufffuc Efkef-6-Waxoqbfsv Gamma Globulins PEP Interpretation HDL Cholesterol TSH Arterial Blood Glucose 404 H Arterial Blood Ionized Calcium Urine WBC (Auto) Urine Creatinine Urine Total Protein Crossmatch 04/26/21 04/27/21 04/27/21 21:14 00:07 05:47 WBC RBC Hgb Hct MCH RDW Plt Count Seg Neuts % (Manual) Lymphocytes % (Manual) Nucleated RBC % Seg Neutrophils # Man Lymphocytes # (Manual) PT ABG pH POC ABG pCO2 POC ABG pO2 ABG pO2 ABG O2 Saturation ABG Base Excess ABG Hemoglobin ABG Oxyhemoglobin ABG Potassium ABG Chloride ABG Glucose Oxyhemoglobin Carboxyhemoglobin Sodium Potassium Chloride Carbon Dioxide BUN Creatinine Glucose POC Glucose 242 H 282 H 214 H Hemoglobin A1c Lactic Acid Calcium Phosphorus Magnesium Transferrin AST ALT Alkaline Phosphatase Total Creatine Kinase CK-MB (CK-2) Serum Total Protein Total Protein Albumin Xvaqz-3-Guosmtaua Gwwyi-1-Udutlhyah Gamma Globulins PEP Interpretation HDL Cholesterol TSH Arterial Blood Glucose Arterial Blood Ionized Calcium Urine WBC (Auto) Urine Creatinine Urine Total Protein Crossmatch 04/27/21 04/27/21 04/27/21 06:23 07:43 08:30 WBC RBC Hgb Hct MCH RDW Plt Count Seg Neuts % (Manual) Lymphocytes % (Manual) Nucleated RBC % Seg Neutrophils # Man Lymphocytes # (Manual) PT ABG pH 7.309 L POC ABG pCO2 POC ABG pO2 70.6 L ABG pO2 ABG O2 Saturation ABG Base Excess ABG Hemoglobin 9.16 L ABG Oxyhemoglobin 92.4 L ABG Potassium ABG Chloride ABG Glucose Oxyhemoglobin Carboxyhemoglobin Sodium Potassium Chloride 110.1 H Carbon Dioxide 15 L BUN 109 H Creatinine 4.3 H Glucose 218 H POC Glucose 187 H Hemoglobin A1c Lactic Acid Calcium Phosphorus Magnesium Transferrin AST 53 H ALT Alkaline Phosphatase 148 H Total Creatine Kinase 1000 H CK-MB (CK-2) Serum Total Protein Total Protein 5.2 L Albumin 1.2 L Rizid-9-Umhskbcsy Yxvpi-0-Wmktlgsao Gamma Globulins PEP Interpretation HDL Cholesterol TSH Arterial Blood Glucose Arterial Blood Ionized Calcium Urine WBC (Auto) Urine Creatinine Urine Total Protein Crossmatch 04/27/21 04/27/21 04/27/21 11:54 21:08 23:28 WBC RBC Hgb Hct MCH RDW Plt Count Seg Neuts % (Manual) Lymphocytes % (Manual) Nucleated RBC % Seg Neutrophils # Man Lymphocytes # (Manual) PT ABG pH POC ABG pCO2 POC ABG pO2 ABG pO2 ABG O2 Saturation ABG Base Excess ABG Hemoglobin ABG Oxyhemoglobin ABG Potassium ABG Chloride ABG Glucose Oxyhemoglobin Carboxyhemoglobin Sodium Potassium Chloride Carbon Dioxide BUN Creatinine Glucose POC Glucose 147 H 136 H 201 H Hemoglobin A1c Lactic Acid Calcium Phosphorus Magnesium Transferrin AST ALT Alkaline Phosphatase Total Creatine Kinase CK-MB (CK-2) Serum Total Protein Total Protein Albumin Bezzh-6-Bbgowoies Bykif-2-Souvtqvas Gamma Globulins PEP Interpretation HDL Cholesterol TSH Arterial Blood Glucose Arterial Blood Ionized Calcium Urine WBC (Auto) Urine Creatinine Urine Total Protein Crossmatch 04/28/21 04/28/21 04/28/21 04:00 04:00 05:00 WBC 12.6 H RBC 3.59 L Hgb 9.4 L Hct MCH 26 L RDW 16.6 H Plt Count 111 L Seg Neuts % (Manual) Lymphocytes % (Manual) 1.0 L Nucleated RBC % 4.0 H Seg Neutrophils # Man 11.6 H Lymphocytes # (Manual) 0.1 L PT 15.3 H ABG pH POC ABG pCO2 POC ABG pO2 ABG pO2 ABG O2 Saturation ABG Base Excess ABG Hemoglobin ABG Oxyhemoglobin ABG Potassium ABG Chloride ABG Glucose Oxyhemoglobin Carboxyhemoglobin Sodium 147 H Potassium 3.5 L D Chloride Carbon Dioxide BUN 79 H Creatinine 3.8 H Glucose 194 H POC Glucose Hemoglobin A1c Lactic Acid Calcium 8.1 L Phosphorus Magnesium Transferrin AST ALT Alkaline Phosphatase Total Creatine Kinase CK-MB (CK-2) Serum Total Protein Total Protein Albumin Trrpq-0-Sxxeojrhq Heatx-7-Uufqblcsy Gamma Globulins PEP Interpretation HDL Cholesterol TSH Arterial Blood Glucose Arterial Blood Ionized Calcium Urine WBC (Auto) Urine Creatinine Urine Total Protein Crossmatch 04/28/21 04/28/21 04/28/21 05:08 05:18 11:04 WBC RBC Hgb Hct MCH RDW Plt Count Seg Neuts % (Manual) Lymphocytes % (Manual) Nucleated RBC % Seg Neutrophils # Man Lymphocytes # (Manual) PT ABG pH POC ABG pCO2 POC ABG pO2 66.5 L ABG pO2 ABG O2 Saturation ABG Base Excess ABG Hemoglobin 9.7 L ABG Oxyhemoglobin 92.5 L ABG Potassium 3.2 L ABG Chloride ABG Glucose 200 H Oxyhemoglobin Carboxyhemoglobin Sodium Potassium Chloride Carbon Dioxide BUN Creatinine Glucose POC Glucose 183 H 174 H Hemoglobin A1c Lactic Acid Calcium Phosphorus Magnesium Transferrin AST ALT Alkaline Phosphatase Total Creatine Kinase CK-MB (CK-2) Serum Total Protein Total Protein Albumin Wtrhf-6-Sfvvzoylu Uwqhb-1-Hgmqkxosv Gamma Globulins PEP Interpretation HDL Cholesterol TSH Arterial Blood Glucose 200 H Arterial Blood Ionized Calcium 4.5 L Urine WBC (Auto) Urine Creatinine Urine Total Protein Crossmatch 04/28/21 04/28/21 04/28/21 17:16 21:14 23:41 WBC RBC Hgb Hct MCH RDW Plt Count Seg Neuts % (Manual) Lymphocytes % (Manual) Nucleated RBC % Seg Neutrophils # Man Lymphocytes # (Manual) PT ABG pH POC ABG pCO2 POC ABG pO2 ABG pO2 ABG O2 Saturation ABG Base Excess ABG Hemoglobin ABG Oxyhemoglobin ABG Potassium ABG Chloride ABG Glucose Oxyhemoglobin Carboxyhemoglobin Sodium Potassium Chloride Carbon Dioxide BUN Creatinine Glucose POC Glucose 135 H 134 H 171 H Hemoglobin A1c Lactic Acid Calcium Phosphorus Magnesium Transferrin AST ALT Alkaline Phosphatase Total Creatine Kinase CK-MB (CK-2) Serum Total Protein Total Protein Albumin Lsimc-5-Gunpnltqj Ewsob-5-Gcoyagxxt Gamma Globulins PEP Interpretation HDL Cholesterol TSH Arterial Blood Glucose Arterial Blood Ionized Calcium Urine WBC (Auto) Urine Creatinine Urine Total Protein Crossmatch 04/29/21 04/29/21 04/29/21 01:16 04:00 04:00 WBC 13.3 H RBC 3.12 L Hgb 8.3 L Hct 26.2 L MCH 27 L RDW 16.3 H Plt Count 132 L Seg Neuts % (Manual) Lymphocytes % (Manual) Nucleated RBC % Seg Neutrophils # Man Lymphocytes # (Manual) PT ABG pH POC ABG pCO2 POC ABG pO2 ABG pO2 ABG O2 Saturation ABG Base Excess ABG Hemoglobin ABG Oxyhemoglobin ABG Potassium ABG Chloride ABG Glucose Oxyhemoglobin Carboxyhemoglobin Sodium Potassium Chloride Carbon Dioxide BUN 63 H Creatinine 3.4 H Glucose 249 H POC Glucose 236 H Hemoglobin A1c Lactic Acid Calcium 8.2 L Phosphorus Magnesium Transferrin AST 61 H ALT 71 H Alkaline Phosphatase 170 H Total Creatine Kinase CK-MB (CK-2) Serum Total Protein Total Protein 5.1 L Albumin 1.6 L Fuikn-1-Kzjeiamlf Rkoad-4-Wtbxzaxjn Gamma Globulins PEP Interpretation HDL Cholesterol TSH Arterial Blood Glucose Arterial Blood Ionized Calcium Urine WBC (Auto) Urine Creatinine Urine Total Protein Crossmatch 04/29/21 04/29/21 04/29/21 11:35 13:30 16:01 WBC RBC Hgb Hct MCH RDW Plt Count Seg Neuts % (Manual) Lymphocytes % (Manual) Nucleated RBC % Seg Neutrophils # Man Lymphocytes # (Manual) PT ABG pH POC ABG pCO2 POC ABG pO2 ABG pO2 ABG O2 Saturation ABG Base Excess ABG Hemoglobin ABG Oxyhemoglobin ABG Potassium ABG Chloride ABG Glucose Oxyhemoglobin Carboxyhemoglobin Sodium Potassium Chloride Carbon Dioxide BUN Creatinine Glucose POC Glucose 320 H 297 H Hemoglobin A1c Lactic Acid Calcium Phosphorus Magnesium Transferrin AST ALT Alkaline Phosphatase Total Creatine Kinase CK-MB (CK-2) Serum Total Protein Total Protein Albumin Owzpu-5-Qraksfyiy Nkgen-5-Snzflkref Gamma Globulins PEP Interpretation HDL Cholesterol TSH Arterial Blood Glucose Arterial Blood Ionized Calcium Urine WBC (Auto) > 182.0 H Urine Creatinine Urine Total Protein Crossmatch 04/29/21 04/29/21 04/30/21 21:58 23:35 04:00 WBC 11.4 H RBC 3.27 L Hgb 8.7 L Hct 27.5 L MCH 27 L RDW 16.6 H Plt Count Seg Neuts % (Manual) Lymphocytes % (Manual) Nucleated RBC % Seg Neutrophils # Man Lymphocytes # (Manual) PT ABG pH POC ABG pCO2 POC ABG pO2 ABG pO2 ABG O2 Saturation ABG Base Excess ABG Hemoglobin ABG Oxyhemoglobin ABG Potassium ABG Chloride ABG Glucose Oxyhemoglobin Carboxyhemoglobin Sodium Potassium Chloride Carbon Dioxide BUN Creatinine Glucose POC Glucose 260 H 254 H Hemoglobin A1c Lactic Acid Calcium Phosphorus Magnesium Transferrin AST ALT Alkaline Phosphatase Total Creatine Kinase CK-MB (CK-2) Serum Total Protein Total Protein Albumin Rqnyj-4-Kqxyhzlky Qhlug-5-Vmqlylrlc Gamma Globulins PEP Interpretation HDL Cholesterol TSH Arterial Blood Glucose Arterial Blood Ionized Calcium Urine WBC (Auto) Urine Creatinine Urine Total Protein Crossmatch 04/30/21 04/30/21 04/30/21 04:00 05:17 05:31 WBC RBC Hgb Hct MCH RDW Plt Count Seg Neuts % (Manual) Lymphocytes % (Manual) Nucleated RBC % Seg Neutrophils # Man Lymphocytes # (Manual) PT ABG pH 7.452 H POC ABG pCO2 30.5 L POC ABG pO2 54.5 L ABG pO2 ABG O2 Saturation ABG Base Excess ABG Hemoglobin 10.1 L ABG Oxyhemoglobin 87.4 L ABG Potassium 2.9 L ABG Chloride ABG Glucose 305 H Oxyhemoglobin Carboxyhemoglobin Sodium Potassium 3.1 L Chloride Carbon Dioxide BUN 79 H Creatinine 3.9 H Glucose 275 H POC Glucose 267 H Hemoglobin A1c Lactic Acid Calcium Phosphorus 5.60 H D Magnesium Transferrin AST ALT Alkaline Phosphatase Total Creatine Kinase CK-MB (CK-2) Serum Total Protein Total Protein Albumin Gbjin-3-Zsqccjhog Pzbbs-1-Lszlzlefg Gamma Globulins PEP Interpretation HDL Cholesterol TSH Arterial Blood Glucose 305 H Arterial Blood Ionized Calcium Urine WBC (Auto) Urine Creatinine Urine Total Protein Crossmatch 04/30/21 04/30/21 04/30/21 12:31 17:50 22:24 WBC RBC Hgb Hct MCH RDW Plt Count Seg Neuts % (Manual) Lymphocytes % (Manual) Nucleated RBC % Seg Neutrophils # Man Lymphocytes # (Manual) PT ABG pH POC ABG pCO2 POC ABG pO2 ABG pO2 ABG O2 Saturation ABG Base Excess ABG Hemoglobin ABG Oxyhemoglobin ABG Potassium ABG Chloride ABG Glucose Oxyhemoglobin Carboxyhemoglobin Sodium Potassium Chloride Carbon Dioxide BUN Creatinine Glucose POC Glucose 259 H 161 H 146 H Hemoglobin A1c Lactic Acid Calcium Phosphorus Magnesium Transferrin AST ALT Alkaline Phosphatase Total Creatine Kinase CK-MB (CK-2) Serum Total Protein Total Protein Albumin Jukms-5-Fcpzpsyvj Srpvk-5-Bmfrvjczw Gamma Globulins PEP Interpretation HDL Cholesterol TSH Arterial Blood Glucose Arterial Blood Ionized Calcium Urine WBC (Auto) Urine Creatinine Urine Total Protein Crossmatch 05/01/21 05/01/21 05/01/21 00:09 03:30 04:00 WBC 12.0 H RBC 3.08 L Hgb 8.1 L Hct 25.6 L MCH 26 L RDW 16.3 H Plt Count Seg Neuts % (Manual) Lymphocytes % (Manual) Nucleated RBC % Seg Neutrophils # Man Lymphocytes # (Manual) PT ABG pH 7.493 H POC ABG pCO2 POC ABG pO2 ABG pO2 ABG O2 Saturation ABG Base Excess ABG Hemoglobin 9.3 L ABG Oxyhemoglobin ABG Potassium ABG Chloride ABG Glucose 167 H Oxyhemoglobin Carboxyhemoglobin 0.4 L Sodium Potassium Chloride Carbon Dioxide BUN Creatinine Glucose POC Glucose 149 H Hemoglobin A1c Lactic Acid Calcium Phosphorus Magnesium Transferrin AST ALT Alkaline Phosphatase Total Creatine Kinase CK-MB (CK-2) Serum Total Protein Total Protein Albumin Devtg-4-Kfkesxglb Mappo-3-Uwjiydrra Gamma Globulins PEP Interpretation HDL Cholesterol TSH Arterial Blood Glucose 167 H Arterial Blood Ionized Calcium Urine WBC (Auto) Urine Creatinine Urine Total Protein Crossmatch 05/01/21 05/01/21 05/01/21 04:00 05:48 11:49 WBC RBC Hgb Hct MCH RDW Plt Count Seg Neuts % (Manual) Lymphocytes % (Manual) Nucleated RBC % Seg Neutrophils # Man Lymphocytes # (Manual) PT ABG pH POC ABG pCO2 POC ABG pO2 ABG pO2 ABG O2 Saturation ABG Base Excess ABG Hemoglobin ABG Oxyhemoglobin ABG Potassium ABG Chloride ABG Glucose Oxyhemoglobin Carboxyhemoglobin Sodium Potassium 3.5 L Chloride Carbon Dioxide BUN 62 H Creatinine 3.3 H Glucose 179 H POC Glucose 197 H 167 H Hemoglobin A1c Lactic Acid Calcium 8.3 L Phosphorus Magnesium Transferrin AST ALT Alkaline Phosphatase Total Creatine Kinase CK-MB (CK-2) Serum Total Protein Total Protein Albumin Jcvbb-1-Hxogjqjgj Kcxsr-9-Iitnwmhkq Gamma Globulins PEP Interpretation HDL Cholesterol TSH Arterial Blood Glucose Arterial Blood Ionized Calcium Urine WBC (Auto) Urine Creatinine Urine Total Protein Crossmatch 05/01/21 05/01/21 05/02/21 16:24 23:25 04:00 WBC 14.2 H RBC 2.61 L Hgb 6.9 L Hct 22.1 L MCH 27 L RDW 16.1 H Plt Count Seg Neuts % (Manual) Lymphocytes % (Manual) Nucleated RBC % Seg Neutrophils # Man Lymphocytes # (Manual) PT ABG pH POC ABG pCO2 POC ABG pO2 ABG pO2 ABG O2 Saturation ABG Base Excess ABG Hemoglobin ABG Oxyhemoglobin ABG Potassium ABG Chloride ABG Glucose Oxyhemoglobin Carboxyhemoglobin Sodium Potassium Chloride Carbon Dioxide BUN Creatinine Glucose POC Glucose 157 H 147 H Hemoglobin A1c Lactic Acid Calcium Phosphorus Magnesium Transferrin AST ALT Alkaline Phosphatase Total Creatine Kinase CK-MB (CK-2) Serum Total Protein Total Protein Albumin Klhpq-9-Utumyzcww Vsfeb-1-Fhzaubkld Gamma Globulins PEP Interpretation HDL Cholesterol TSH Arterial Blood Glucose Arterial Blood Ionized Calcium Urine WBC (Auto) Urine Creatinine Urine Total Protein Crossmatch 05/02/21 05/02/21 05/02/21 04:00 04:34 05:23 WBC RBC Hgb Hct MCH RDW Plt Count Seg Neuts % (Manual) Lymphocytes % (Manual) Nucleated RBC % Seg Neutrophils # Man Lymphocytes # (Manual) PT ABG pH 7.487 H POC ABG pCO2 POC ABG pO2 78.6 L ABG pO2 ABG O2 Saturation ABG Base Excess ABG Hemoglobin 11.5 L ABG Oxyhemoglobin ABG Potassium ABG Chloride ABG Glucose 122 H Oxyhemoglobin Carboxyhemoglobin Sodium Potassium Chloride Carbon Dioxide BUN 49 H Creatinine 2.8 H Glucose 117 H POC Glucose 119 H Hemoglobin A1c Lactic Acid Calcium Phosphorus Magnesium Transferrin AST ALT Alkaline Phosphatase Total Creatine Kinase CK-MB (CK-2) Serum Total Protein Total Protein Albumin Ejfea-9-Erelsbqim Wkmxi-6-Ngoqupsuz Gamma Globulins PEP Interpretation HDL Cholesterol TSH Arterial Blood Glucose 122 H Arterial Blood Ionized Calcium Urine WBC (Auto) Urine Creatinine Urine Total Protein Crossmatch 05/02/21 05/02/21 05/02/21 12:00 12:04 17:29 WBC RBC Hgb Hct MCH RDW Plt Count Seg Neuts % (Manual) Lymphocytes % (Manual) Nucleated RBC % Seg Neutrophils # Man Lymphocytes # (Manual) PT ABG pH POC ABG pCO2 POC ABG pO2 ABG pO2 ABG O2 Saturation ABG Base Excess ABG Hemoglobin ABG Oxyhemoglobin ABG Potassium ABG Chloride ABG Glucose Oxyhemoglobin Carboxyhemoglobin Sodium Potassium Chloride Carbon Dioxide BUN Creatinine Glucose POC Glucose 115 H 120 H Hemoglobin A1c Lactic Acid Calcium Phosphorus Magnesium Transferrin AST ALT Alkaline Phosphatase Total Creatine Kinase CK-MB (CK-2) Serum Total Protein Total Protein Albumin Jlxsn-6-Zuqxuqzyf Yrlye-7-Zpeocozjq Gamma Globulins PEP Interpretation HDL Cholesterol TSH Arterial Blood Glucose Arterial Blood Ionized Calcium Urine WBC (Auto) Urine Creatinine Urine Total Protein Crossmatch See Detail 05/02/21 05/03/21 05/03/21 23:36 04:00 04:00 WBC 13.9 H RBC 3.22 L Hgb 8.7 L Hct 27.4 L MCH 27 L RDW 15.8 H Plt Count Seg Neuts % (Manual) Lymphocytes % (Manual) Nucleated RBC % Seg Neutrophils # Man Lymphocytes # (Manual) PT ABG pH POC ABG pCO2 POC ABG pO2 ABG pO2 ABG O2 Saturation ABG Base Excess ABG Hemoglobin ABG Oxyhemoglobin ABG Potassium ABG Chloride ABG Glucose Oxyhemoglobin Carboxyhemoglobin Sodium 146 H Potassium 3.5 L Chloride 107.5 H Carbon Dioxide BUN 40 H Creatinine 2.5 H Glucose 104 H POC Glucose 130 H Hemoglobin A1c Lactic Acid Calcium Phosphorus Magnesium Transferrin AST 53 H ALT Alkaline Phosphatase 149 H Total Creatine Kinase CK-MB (CK-2) Serum Total Protein Total Protein 5.2 L Albumin 1.5 L Dooiy-4-Wludbbcbe Wpumv-7-Azuaojfzt Gamma Globulins PEP Interpretation HDL Cholesterol TSH Arterial Blood Glucose Arterial Blood Ionized Calcium Urine WBC (Auto) Urine Creatinine Urine Total Protein Crossmatch 05/03/21 05/04/21 05/04/21 17:26 01:24 04:48 WBC 14.3 H RBC 3.14 L Hgb 8.5 L Hct 26.3 L MCH 27 L RDW 15.8 H Plt Count Seg Neuts % (Manual) Lymphocytes % (Manual) Nucleated RBC % Seg Neutrophils # Man Lymphocytes # (Manual) PT ABG pH POC ABG pCO2 POC ABG pO2 ABG pO2 ABG O2 Saturation ABG Base Excess ABG Hemoglobin ABG Oxyhemoglobin ABG Potassium ABG Chloride ABG Glucose Oxyhemoglobin Carboxyhemoglobin Sodium Potassium Chloride Carbon Dioxide BUN Creatinine Glucose POC Glucose 123 H 146 H Hemoglobin A1c Lactic Acid Calcium Phosphorus Magnesium Transferrin AST ALT Alkaline Phosphatase Total Creatine Kinase CK-MB (CK-2) Serum Total Protein Total Protein Albumin Qbqym-7-Pfikitvvp Nzrio-3-Uujjcgqle Gamma Globulins PEP Interpretation HDL Cholesterol TSH Arterial Blood Glucose Arterial Blood Ionized Calcium Urine WBC (Auto) Urine Creatinine Urine Total Protein Crossmatch 05/04/21 05/04/21 05/04/21 04:48 05:15 11:24 WBC RBC Hgb Hct MCH RDW Plt Count Seg Neuts % (Manual) Lymphocytes % (Manual) Nucleated RBC % Seg Neutrophils # Man Lymphocytes # (Manual) PT ABG pH POC ABG pCO2 POC ABG pO2 ABG pO2 ABG O2 Saturation ABG Base Excess ABG Hemoglobin ABG Oxyhemoglobin ABG Potassium ABG Chloride ABG Glucose Oxyhemoglobin Carboxyhemoglobin Sodium Potassium 3.5 L Chloride Carbon Dioxide BUN 58 H Creatinine 3.4 H Glucose 168 H POC Glucose 162 H 145 H Hemoglobin A1c Lactic Acid Calcium Phosphorus 5.30 H Magnesium Transferrin AST ALT Alkaline Phosphatase Total Creatine Kinase CK-MB (CK-2) Serum Total Protein Total Protein Albumin Ogcxc-2-Ainiftpjx Jjzhv-3-Uvbmkdldu Gamma Globulins PEP Interpretation HDL Cholesterol 24 L TSH Arterial Blood Glucose Arterial Blood Ionized Calcium Urine WBC (Auto) Urine Creatinine Urine Total Protein Crossmatch 05/04/21 05/04/21 05/05/21 16:01 23:32 04:00 WBC RBC Hgb Hct MCH RDW Plt Count Seg Neuts % (Manual) Lymphocytes % (Manual) Nucleated RBC % Seg Neutrophils # Man Lymphocytes # (Manual) PT ABG pH POC ABG pCO2 POC ABG pO2 ABG pO2 ABG O2 Saturation ABG Base Excess ABG Hemoglobin ABG Oxyhemoglobin ABG Potassium ABG Chloride ABG Glucose Oxyhemoglobin Carboxyhemoglobin Sodium Potassium 3.4 L Chloride Carbon Dioxide BUN 43 H Creatinine 2.7 H Glucose 124 H POC Glucose 148 H 134 H Hemoglobin A1c Lactic Acid Calcium 8.2 L Phosphorus Magnesium Transferrin AST ALT Alkaline Phosphatase Total Creatine Kinase CK-MB (CK-2) Serum Total Protein Total Protein Albumin Rryvf-0-Aoxzkfugu Crcqj-8-Irjtdmwxi Gamma Globulins PEP Interpretation HDL Cholesterol TSH Arterial Blood Glucose Arterial Blood Ionized Calcium Urine WBC (Auto) Urine Creatinine Urine Total Protein Crossmatch 05/05/21 05/06/21 05/06/21 05:14 00:01 04:00 WBC RBC Hgb Hct MCH RDW Plt Count Seg Neuts % (Manual) Lymphocytes % (Manual) Nucleated RBC % Seg Neutrophils # Man Lymphocytes # (Manual) PT ABG pH POC ABG pCO2 POC ABG pO2 ABG pO2 ABG O2 Saturation ABG Base Excess ABG Hemoglobin ABG Oxyhemoglobin ABG Potassium ABG Chloride ABG Glucose Oxyhemoglobin Carboxyhemoglobin Sodium Potassium 3.2 L Chloride Carbon Dioxide BUN 56 H Creatinine 3.0 H Glucose 110 H POC Glucose 120 H 120 H Hemoglobin A1c Lactic Acid Calcium 7.8 L Phosphorus 4.60 H Magnesium Transferrin AST ALT Alkaline Phosphatase Total Creatine Kinase CK-MB (CK-2) Serum Total Protein Total Protein Albumin Lioxz-6-Jqzgxbbup Ikaza-4-Xytbxswkq Gamma Globulins PEP Interpretation HDL Cholesterol TSH Arterial Blood Glucose Arterial Blood Ionized Calcium Urine WBC (Auto) Urine Creatinine Urine Total Protein Crossmatch 05/06/21 05/06/21 05/06/21 04:27 05:15 17:37 WBC RBC 3.03 L Hgb 8.3 L Hct 25.4 L MCH 27 L RDW Plt Count Seg Neuts % (Manual) Lymphocytes % (Manual) Nucleated RBC % Seg Neutrophils # Man Lymphocytes # (Manual) PT ABG pH POC ABG pCO2 POC ABG pO2 ABG pO2 ABG O2 Saturation ABG Base Excess ABG Hemoglobin ABG Oxyhemoglobin ABG Potassium ABG Chloride ABG Glucose Oxyhemoglobin Carboxyhemoglobin Sodium Potassium Chloride Carbon Dioxide BUN Creatinine Glucose POC Glucose 137 H 132 H Hemoglobin A1c Lactic Acid Calcium Phosphorus Magnesium Transferrin AST ALT Alkaline Phosphatase Total Creatine Kinase CK-MB (CK-2) Serum Total Protein Total Protein Albumin Qtusq-0-Ocunaoolg Xinoh-5-Sbcfktvgj Gamma Globulins PEP Interpretation HDL Cholesterol TSH Arterial Blood Glucose Arterial Blood Ionized Calcium Urine WBC (Auto) Urine Creatinine Urine Total Protein Crossmatch 05/07/21 05/07/21 05/07/21 00:30 04:23 04:23 WBC RBC Hgb Hct MCH RDW Plt Count Seg Neuts % (Manual) Lymphocytes % (Manual) Nucleated RBC % Seg Neutrophils # Man Lymphocytes # (Manual) PT ABG pH POC ABG pCO2 POC ABG pO2 ABG pO2 ABG O2 Saturation ABG Base Excess ABG Hemoglobin ABG Oxyhemoglobin ABG Potassium ABG Chloride ABG Glucose Oxyhemoglobin Carboxyhemoglobin Sodium Potassium 3.4 L Chloride 107.1 H Carbon Dioxide BUN 28 H Creatinine 1.9 H Glucose 165 H POC Glucose 121 H Hemoglobin A1c Lactic Acid Calcium 8.2 L Phosphorus Magnesium 1.60 L Transferrin AST ALT Alkaline Phosphatase Total Creatine Kinase CK-MB (CK-2) Serum Total Protein Total Protein Albumin Cuqbe-6-Tadxxbmil Fpdhj-0-Slcjnqqnu Gamma Globulins PEP Interpretation HDL Cholesterol TSH Arterial Blood Glucose Arterial Blood Ionized Calcium Urine WBC (Auto) Urine Creatinine Urine Total Protein Crossmatch 05/07/21 05/07/21 05/07/21 05:30 11:37 17:28 WBC RBC Hgb Hct MCH RDW Plt Count Seg Neuts % (Manual) Lymphocytes % (Manual) Nucleated RBC % Seg Neutrophils # Man Lymphocytes # (Manual) PT ABG pH POC ABG pCO2 POC ABG pO2 ABG pO2 ABG O2 Saturation ABG Base Excess ABG Hemoglobin ABG Oxyhemoglobin ABG Potassium ABG Chloride ABG Glucose Oxyhemoglobin Carboxyhemoglobin Sodium Potassium Chloride Carbon Dioxide BUN Creatinine Glucose POC Glucose 205 H 148 H 170 H Hemoglobin A1c Lactic Acid Calcium Phosphorus Magnesium Transferrin AST ALT Alkaline Phosphatase Total Creatine Kinase CK-MB (CK-2) Serum Total Protein Total Protein Albumin Ognrj-3-Rxesstwne Umcih-5-Emnbaoplr Gamma Globulins PEP Interpretation HDL Cholesterol TSH Arterial Blood Glucose Arterial Blood Ionized Calcium Urine WBC (Auto) Urine Creatinine Urine Total Protein Crossmatch 05/07/21 05/08/21 05/08/21 23:57 05:12 05:12 WBC 11.2 H RBC 3.01 L Hgb 8.2 L Hct 25.5 L MCH 27 L RDW 15.4 H Plt Count Seg Neuts % (Manual) Lymphocytes % (Manual) Nucleated RBC % Seg Neutrophils # Man Lymphocytes # (Manual) PT ABG pH POC ABG pCO2 POC ABG pO2 ABG pO2 ABG O2 Saturation ABG Base Excess ABG Hemoglobin ABG Oxyhemoglobin ABG Potassium ABG Chloride ABG Glucose Oxyhemoglobin Carboxyhemoglobin Sodium Potassium 3.4 L Chloride Carbon Dioxide BUN 37 H Creatinine 2.1 H Glucose 160 H POC Glucose 172 H Hemoglobin A1c Lactic Acid Calcium 8.3 L Phosphorus Magnesium Transferrin AST ALT Alkaline Phosphatase Total Creatine Kinase CK-MB (CK-2) Serum Total Protein Total Protein Albumin Pgohk-9-Zsdisjuru Bskgz-5-Kedxkuwni Gamma Globulins PEP Interpretation HDL Cholesterol TSH Arterial Blood Glucose Arterial Blood Ionized Calcium Urine WBC (Auto) Urine Creatinine Urine Total Protein Crossmatch 05/08/21 05/08/21 05/08/21 05:20 11:35 16:55 WBC RBC Hgb Hct MCH RDW Plt Count Seg Neuts % (Manual) Lymphocytes % (Manual) Nucleated RBC % Seg Neutrophils # Man Lymphocytes # (Manual) PT ABG pH POC ABG pCO2 POC ABG pO2 ABG pO2 ABG O2 Saturation ABG Base Excess ABG Hemoglobin ABG Oxyhemoglobin ABG Potassium ABG Chloride ABG Glucose Oxyhemoglobin Carboxyhemoglobin Sodium Potassium Chloride Carbon Dioxide BUN Creatinine Glucose POC Glucose 148 H 208 H 179 H Hemoglobin A1c Lactic Acid Calcium Phosphorus Magnesium Transferrin AST ALT Alkaline Phosphatase Total Creatine Kinase CK-MB (CK-2) Serum Total Protein Total Protein Albumin Cfscp-5-Orpzmlapt Hjmsx-8-Ceqrvelip Gamma Globulins PEP Interpretation HDL Cholesterol TSH Arterial Blood Glucose Arterial Blood Ionized Calcium Urine WBC (Auto) Urine Creatinine Urine Total Protein Crossmatch 05/08/21 05/09/21 05/09/21 23:57 05:30 05:30 WBC 12.8 H RBC 2.98 L Hgb 8.1 L Hct 25.4 L MCH 27 L RDW 15.4 H Plt Count Seg Neuts % (Manual) Lymphocytes % (Manual) Nucleated RBC % Seg Neutrophils # Man Lymphocytes # (Manual) PT ABG pH POC ABG pCO2 POC ABG pO2 ABG pO2 ABG O2 Saturation ABG Base Excess ABG Hemoglobin ABG Oxyhemoglobin ABG Potassium ABG Chloride ABG Glucose Oxyhemoglobin Carboxyhemoglobin Sodium 150 H Potassium 3.2 L Chloride 110.2 H Carbon Dioxide BUN 37 H Creatinine 1.8 H Glucose 191 H POC Glucose 183 H Hemoglobin A1c Lactic Acid Calcium Phosphorus Magnesium Transferrin AST ALT Alkaline Phosphatase Total Creatine Kinase CK-MB (CK-2) Serum Total Protein Total Protein Albumin Mxhyz-9-Ndjnwjypu Ekiie-4-Oiegguvay Gamma Globulins PEP Interpretation HDL Cholesterol TSH Arterial Blood Glucose Arterial Blood Ionized Calcium Urine WBC (Auto) Urine Creatinine Urine Total Protein Crossmatch 05/09/21 05:31 WBC RBC Hgb Hct MCH RDW Plt Count Seg Neuts % (Manual) Lymphocytes % (Manual) Nucleated RBC % Seg Neutrophils # Man Lymphocytes # (Manual) PT ABG pH POC ABG pCO2 POC ABG pO2 ABG pO2 ABG O2 Saturation ABG Base Excess ABG Hemoglobin ABG Oxyhemoglobin ABG Potassium ABG Chloride ABG Glucose Oxyhemoglobin Carboxyhemoglobin Sodium Potassium Chloride Carbon Dioxide BUN Creatinine Glucose POC Glucose 120 H Hemoglobin A1c Lactic Acid Calcium Phosphorus Magnesium Transferrin AST ALT Alkaline Phosphatase Total Creatine Kinase CK-MB (CK-2) Serum Total Protein Total Protein Albumin Kekoy-4-Uneyernkk Oxumz-0-Brfqemsrb Gamma Globulins PEP Interpretation HDL Cholesterol TSH Arterial Blood Glucose Arterial Blood Ionized Calcium Urine WBC (Auto) Urine Creatinine Urine Total Protein Crossmatch
--- NOTE | 2021-05-09 12:22 | Progress Note ---
Assessment and Plan (1) Acute metabolic encephalopathy (2) Diabetic hyperosmolar non-ketotic state 3) SYED (acute kidney injury) (4) Dehydration (5) Hypernatremia (6) Rhabdomyolysis (7) Hypernatremia 8) GERD (gastroesophageal reflux disease) (9) Metabolic acidosis (10) Leukocytosis No indication for HD today cont to have good UOP, Cr is improving will check 24 hours creatinine clearance-pending water flushes were increased to 250 cc every 4 hours to treat elevated na will assess dialysis needs daily renally dose meds Strict I&O Subjective Date of service: 05/09/21 Principal diagnosis: Acute respiratory failure Interval history: no overnight events, intubated Objective - Vital Signs Vital signs: Vital Signs - 12hr 05/09/21 05/09/21 05/09/21 00:30 01:00 01:30 Temperature Pulse Rate 92 H 95 H 93 H Respiratory 22 15 14 Rate Blood Pressure 160/75 163/79 170/71 O2 Sat by Pulse 98 98 98 Oximetry 05/09/21 05/09/21 05/09/21 02:01 02:30 03:00 Temperature Pulse Rate 81 83 85 Respiratory 13 14 14 Rate Blood Pressure 131/48 143/61 152/65 O2 Sat by Pulse 97 98 98 Oximetry 05/09/21 05/09/21 05/09/21 03:30 03:40 04:00 Temperature 98.8 F Pulse Rate 90 87 Respiratory 18 12 Rate Blood Pressure 159/84 174/78 O2 Sat by Pulse 98 99 Oximetry 05/09/21 05/09/21 05/09/21 04:30 05:00 05:30 Temperature Pulse Rate 103 H 81 91 H Respiratory 13 16 14 Rate Blood Pressure 166/101 143/71 174/78 O2 Sat by Pulse 98 98 99 Oximetry 05/09/21 05/09/21 05/09/21 06:02 06:30 07:00 Temperature Pulse Rate 92 H 94 H 90 Respiratory 18 15 22 Rate Blood Pressure 131/48 178/91 174/75 O2 Sat by Pulse 98 100 99 Oximetry 05/09/21 05/09/21 05/09/21 07:30 07:34 07:41 Temperature 99.1 F Pulse Rate 85 83 Respiratory 14 Rate Blood Pressure 141/63 141/63 O2 Sat by Pulse 98 98 Oximetry 05/09/21 05/09/21 05/09/21 08:00 08:30 09:00 Temperature Pulse Rate 92 H 87 91 H Respiratory 14 14 14 Rate Blood Pressure 179/75 140/70 150/64 O2 Sat by Pulse 99 98 98 Oximetry 05/09/21 05/09/21 05/09/21 09:30 10:00 10:30 Temperature Pulse Rate 86 86 84 Respiratory 14 15 14 Rate Blood Pressure 139/60 147/66 147/66 O2 Sat by Pulse 99 99 99 Oximetry 05/09/21 05/09/21 05/09/21 11:00 11:30 11:59 Temperature 99.5 F Pulse Rate 94 H 90 Respiratory 20 12 Rate Blood Pressure 154/77 143/63 O2 Sat by Pulse 99 99 Oximetry 05/09/21 12:00 Temperature Pulse Rate 93 H Respiratory 19 Rate Blood Pressure 151/70 O2 Sat by Pulse 98 Oximetry - General Appearance General appearance: intubated EENT: ATNC, PERRL, mucous membranes dry Neck: no JVD Respiratory: Present: Decreased Breath Sounds Cardiology: tachycardia Gastrointestinal: normoactive bowel sounds, no tenderness, no distended Integumentary: no rash, warm and dry Neurologic: other (intubated) Musculoskeletal: other (edema in BLE) - Lab 05/09/21 05:30 05/09/21 05:30 Most recent lab results ABG pH 7.487 (7.320-7.450) H 05/02/21 04:34 ABG pCO2 31.6 mm Hg 04/21/21 15:47 ABG pO2 168.1 mm Hg (80.0-90.0) H 04/21/21 15:47 ABG HCO3 23.3 mmol/L (20.0-26.0) 04/21/21 15:47 ABG O2 Saturation 96.0 (0-100) 05/02/21 04:34 Calcium 8.5 mg/dL (8.4-10.2) 05/09/21 05:30 Phosphorus 3.60 mg/dL (2.5-4.5) 05/09/21 05:30 Magnesium 1.70 mg/dL (1.7-2.3) 05/08/21 05:12 Urine Creatinine 44.3 mg/dL (0.1-20.0) H 04/21/21 08:01 Urine Sodium 71 mmol/L 04/21/21 08:01 Urine Total Protein 12 mg/dL (5-11.8) H 04/21/21 08:01 Medications & Allergies - Medications Allergies/Adverse Reactions: Allergies No Known Allergies Allergy (Unverified 04/20/21 14:35) Active Medications: Generic Name Dose Route Start Last Admin Trade Name Freq PRN Reason Stop Dose Admin Acetaminophen 650 mg 04/20/21 21:31 05/01/21 18:15 Acetaminophen 325 Mg Tab PO 650 mg Q4H PRN Administration Pain MILD(1-3)/Fever >100.5/TURCIOS Albumin Human 25 gm 05/06/21 16:06 05/06/21 16:21 Albumin Human 25% (25 Gm/100 Ml) Inj IV 25 gm MITCH PRN Administration Hypotension Albuterol 2.5 mg 04/22/21 14:49 04/23/21 15:18 Albuterol 2.5 Mg/3 Ml Nebu IH 2.5 mg Q4HRT PRN Administration Shortness Of Breath Lipase/Protease/Amylase 1 each 04/25/21 14:13 Lipase 10,500/Protease 25,000/Amylase 43,750 (Units) Dr Vasquez FEEDTUBE PRN PRN For Clogged Feeding Tube Aspirin 81 mg 05/04/21 10:00 05/09/21 09:20 Aspirin 81 Mg Tab Chew FEEDTUBE 81 mg QDAY AZIZA Administration Atorvastatin Calcium 40 mg 05/04/21 22:00 05/08/21 21:22 Atorvastatin 40 Mg Tab FEEDTUBE 40 mg QHS AZIZA Administration Dextrose 50 ml 04/24/21 11:36 Dextrose 50% In Water (25gm) 50 Ml Syringe IV Q30MIN PRN Hypoglycemia Protocol Famotidine 10 mg 04/27/21 10:00 05/09/21 09:20 Famotidine 10 Mg Tab FEEDTUBE 10 mg BID AZIZA Administration Hydralazine HCl 10 mg 04/24/21 21:22 Hydralazine 20 Mg/1 Ml Inj IV Q4HR PRN elevated BP Hydrophilic Ointment 1 applic 04/26/21 11:16 Lip Therapy Vaseline TP Q2HR PRN Dry Lips NORepinephrine/NS 8 MG-250 ML 8 mg in 250 mls @ 3.75 mls/hr 04/26/21 16:00 05/04/21 21:34 Norepinephrine/Ns 8 Mg-250 Ml (Double Conc) IV 0 mcg/min TITRATE AZIZA 0 mls/hr Titration Protocol 2 MCG/MIN Sodium Chloride 100 mls @ 999 mls/hr 05/04/21 11:30 Nacl 0.9% IV MITCH PRN Hypotension Fluconazole 200 mg in 100 mls @ 100 mls/hr 05/05/21 15:00 05/08/21 15:53 Diflucan IV 05/09/21 15:59 100 mls/hr Q24H AZIZA Administration Protocol Sodium Chloride 100 mls @ 999 mls/hr 05/06/21 16:06 Nacl 0.9% IV MITCH PRN Hypotension Insulin Human Lispro 0 unit 04/25/21 18:00 05/09/21 11:39 Insulin Lispro 100 Unit/Ml SUB-Q 3 unit Q6HR [facility] Administration Protocol Levothyroxine Sodium 50 mcg 05/03/21 06:00 05/09/21 06:04 Levothyroxine 50 Mcg Tab PO 50 mcg DAILY@0600 [facility] Administration Lorazepam 1 mg 04/26/21 11:15 04/30/21 23:00 Lorazepam 2 Mg/Ml Vial IV 1 mg Q4H PRN Administration Sedation Metoclopramide HCl 5 mg 04/20/21 21:31 Metoclopramide 10 Mg/2 Ml Inj IV Q6H PRN Nausea And Vomiting Midodrine 5 mg 05/08/21 09:00 05/09/21 08:39 Midodrine 5 Mg Tab PO Not Given TID@0800,1200,1600 [facility] Multi-Ingred Cream/Lotion/Oil/Oint 1 applic 04/26/21 11:16 Mineral Oil/Petrolatum, White Ophth Oint 3.5 Gm OU Q4HR PRN Dry Eye(s) Ondansetron HCl 4 mg 04/20/21 21:31 Ondansetron 4 Mg/2 Ml Inj IV Q8H PRN Nausea And Vomiting Senna/Docusate Sodium 1 tab 04/26/21 22:00 05/09/21 09:20 Sennosides/Docusate Sodium 8.6/50 Mg Tab FEEDTUBE 1 tab BID AZIZA Administration Simple Syrup 15 ml 04/25/21 14:13 Simple Syrup 15 Ml FEEDTUBE PRN PRN Hypoglycemia Simple Syrup 30 ml 04/25/21 14:13 Simple Syrup 15 Ml FEEDTUBE PRN PRN Hypoglycemia Sodium Bicarbonate 325 mg 04/25/21 14:13 04/27/21 13:00 Sodium Bicarbonate 325 Mg Tab FEEDTUBE 325 mg PRN PRN Administration For Clogged Feeding Tube Sodium Bicarbonate 1,300 mg 04/27/21 14:00 05/09/21 08:39 Sodium Bicarbonate 650 Mg Tab PO 1,300 mg TID AZIZA Administration Sodium Chloride 10 ml 04/20/21 22:00 05/09/21 09:20 Sodium Chloride 0.9% 10 Ml Flush Syringe IV 10 ml BID AZIZA Administration Sodium Chloride 10 ml 04/20/21 21:31 Sodium Chloride 0.9% 10 Ml Flush Syringe IV PRN PRN LINE FLUSH
[2021-05-09] MEDS ORDERED: POTASSIUM CHLORIDE 20 MEQ PACKET FEEDTUBE NR (13:13)
--- NOTE | 2021-05-09 13:16 | Progress Note ---
<LISA CLIFTON - Last Filed: 05/09/21 22:29> Assessment and Plan Assessment and plan: This is a 80-year-old female, [facility] resident with past medical history of GERD, hypothyroidism, hyperlipidemia, schizophrenia and dementia admitted with hypothermia, hyponatremia, hypokalemia, lactic acidosis, acute kidney injury, rhabdomyolysis and hyperosmolar nonketotic state. Hospital Course to Date: 04/21: Given 1 L LR bolus per nephrology and D5W increased to 125 mL's per hour, COVID-19 PCR pending, CXR and ABG ordered as patient was weaned from BiPAP to 3 L nasal cannula however was uptitrated back to nonrebreather. Will obtain blood cultures x2 given her leukocytosis and hypothermia. Replace potassium. Neurosurgery and neurology consulted and Luther catheter placed. 04/22: Improvement to sodium noted, slight hypokalemia which will be repleted, slight improvement to renal function, LFTs and rhabdomyolysis. Seen by neurosurgery today. Patient still making urine. transition to ssi and start TF as AG 15 04/23/2021: Given racemic epinephrine again due to stridor, continue IV fluids per nephrology, continue to trend sodium and BMP. 04/24/2021: 70/30 increased d/t hyperglycemia but recent BMP showed BG>300, gave additional 5 units IV insulin and ordered 5 units TID scheduled. However after IV insulin her PCOT was 400. Start on insulin gtt for hyperglycemia. Per RN she was not of IV D5 overniught d/t having one IV which was needed for emergency. Day RN did start dextrose. Remains with hyperglycemia. 04/25: Patient obtunded, withdrawal to pain only, on 50%Venti mask SPO2 abobe 92%. Plan to transition to SubQ insulin. Patient with mild hypernatremia this am, FWF added, will stop IVF for now. 04/26: Patient s/p intubation this am. Mentation is unchanged, plan for MRI brain today per NeuroSurg. Still hyperglycemic, hypernatremia improved, D5W D/katlyn, and basal insulin adjusted. 04/27: Bronch overnight. CXR with mild improvement. D/w Nephro plan for HD today, RIJ VasCath inserted. MRI on hold per [facility] patient is too unstable at this time, plan for possible spinal drained tomorrow to see if mentation will improve. 04/28: Tolerated HD overnight, only UF. Mentation remains the same. D/w CCM plan for possible large volume spinal tap under fluoroscopy today. Plan for possible HD again today. Continue FWF for elevated Na. 04/29: MARY overnight. Plan for spinal tap this am. febrile overnight with leukocytosis, remains on pressors and more tachycardic now. Will panculture patient, and empiric IV was initiated. Remains hyperglycemic, basal insulin adjusted. 04/30: Patient's mentation remains unchanged post spinal tap. Plan for possible MRI brain next week. Afebrile overnight and leukocytosis improved, However, vent settings are going up and this am ABG with hypoxia, this am CXR with worsening opacities. Patient with 3+ pitting edema. Continue HD per Nephro. Continue current empiric IV abx, f/u on culture data, might need to get ID on board if worsen. 05/01: Mentation is unchanged, still on pressors. Febrile this am, continue IV abx, ID consulted. 3L out yesterday, plan for HD again tomorrow. Plt count improved, might need to restart AC, will D/w CCM. 05/02: No change in mentation and she is now noted to be decorticating to pain -> MRI brain ordered. Scheduled for HD today. ID consult completed. 05/03: Neurology consulted given MRI findings of multiple acute CVAs, LINCOLN ordered, EEG pending, started on aspirin and Lipitor. updated POA 05/04: Received hemodialysis today, will schedule for LINCOLN today however HD was ongoing at the time neurology will obtain MRA brain and neck then consider LINCOLN, increasing midodrine to aid in weaning Levophed. 05/05: MRA/MRV completed today, urine culture grew Roselyn and was started on fluconazole, LINCOLN tentatively scheduled for tomorrow. Resume tube feeding and n.p.o. at midnight. 05/06: Patient was scheduled for LINCOLN which was attempted however patient became hypotensive and the procedure was aborted. She received HD today. No acute events reported overnight. Tube feedings resumed. 05/07: No acute changes overnight. 05/08: May need permacath, goals of care to be discussed and will likely happen after neuro recommendations tomorrow since LINCOLN was unable to be completed. No acute events overnight. Replete mag, decreased midodrine. 05/09: MARY overnight. Patient remains unresponsive. No HD today per Nephro, low K repleted. D/w CCM plan for possible conference call with patient's POA tomorrow to further discuss plan of care and possible alternatives. Assessment and Plan #Neuro:Acute CVA #Acute metabolic encephalopathy #Normal Pressure Hydrocephalus -CT head shows lateral ventricles and third ventricle dilation, raises possibility of normal pressure hydrocephalus -Neurology and neurosurgery consulted, appreciate recommendations -neurosurgery no acute interventions -04/29 s/p spinal tap- 24ml out -MRI brain with multiple ischemic events in both hemisphere, possible embolic event with water shed infarct can not be totally excluded. -Continue ASA and lipitor -Maintain sleep-wake cycle -Avoid delirium -Hold off on restarting home antipsychotic medications #Hypotension-improved #Tachycardia #Sepsis -Low BP, multifactorial-hypovelemia vs infectious process -S/p pressors -Now on Midodrine TID, held this am SBP was in the 150s -Continue blood pressure monitor per protocol -Maintain MAP above 65 and SBP less than 160 #Respiratory: Acute hypoxic respiratory failure #CAP #Possible Aspiration -S/p intubation this am 04/26 -Vent setting:PRVC-30%,6,14,450 -04/26 s/p bronchoscopy, this am CXR with mild improvement -No ABG this am -CCM consulted, appreciate recommendations -VAP bundle addressed -Aspiration precaution HOB above 30 -Daily ABG and CXR -Continue SPO2 monitoring for SPO2 goal above 92% #GI:Transaminitis #Hypoalbuminemia -Presented with transaminitis -Trend LFTs -Continue enteral nutrition -Ntr consult for TF -BR: Senokot -PPI #:Acute Kidney Injury (SYED) likely secondary to vasomotor nephropathy #Hypokalemia #Hypernatremia-improved #Urinary Retention-resolved -FeNA 0.50 indicating prerenal sate -Nephrology and CCM consulted, appreciate recommendations -04/27 vascath inserted and HD initiated, patient tolerated it well -Continue HD per Nephro -No HD today -Luther catheter placed for strict intake and output -Avoid nephrotoxic medication, Renally dose medications -K repleted -Continue to monitor and replace electrolytes as needed -Trend BMP #ID:CAP #Leukocytosis-improved #Urinary Tract Infection(UTI) -Patient presented hypothemic -CXR shows increased interstitial prominence of densities in bilateral lungs -COVID-19 PCR negative -Blood culture x2 NGTD -Antibiotic therapy course ended today 04/25 -Repeat Blood culture, and sputum culture NGTD -UA with pyuria, culture + yeast -On difflucan, ending today -Monitor WBC and fever curve -Daily CBC monitor -ID consulted #Endo:Hyperglycemia #s/p HHNK -Transition to SubQ insulin -Continue high dose SSI Q6hrs -Continue Basal, NPH -Avoid hypoglycemia #Heme:Thrombocytopenia-resolved -Presented with low plt, unknown etiology -Plt count improved -AC still on hold, might need to restart AC, will D/w CCM -Trend CBC -Transfuse to hemoglobin less than 7 -Monitor for bleeding -r/o DVT, BUE doppler neg -SCD to bilateral lower extremities while in bed The high probability of a clinically significant, sudden or life threatening deterioration of the [Multiple] system(s) required my full and direct attention, intervention and personal management. The aggregate critical care time was [60] minutes. This time is in addition to time spent performing reported procedures but includes the following: [x] Data Review and interpretation [x] Patient assessment and monitoring of vital signs [x] Documentation [x] Medication orders and management Disposition Plan: ICU Total Time Spent with Patient (Minutes): 60 History Interval history: Patient seen and examined at the bedside. Remains unresponsive. MARY overnight Hospitalist Physical - Constitutional Vitals: Temp Pulse Resp BP Pulse Ox 99.5 F 93 H 19 151/70 98 05/09/21 11:59 05/09/21 12:00 05/09/21 12:00 05/09/21 12:00 05/09/21 12:00 General appearance: Present: no acute distress, other (Intubated, unresponsive) - EENT Eyes: Present: PERRL - Respiratory Respiratory effort: normal Respiratory: bilateral: rhonchi - Cardiovascular Rhythm: regular Heart Sounds: Present: S1 & S2 - Extremities Extremities: no ischemia, pulses intact, pulses symmetrical Extremity abnormal: edema - Peripheral Assessment Generalized Edema Type: Non-pitting Edema Degree: 1+ Capillary Refill: < 3 seconds Skin Temperature: Warm - Abdominal General gastrointestinal: soft, non-distended, normal bowel sounds - Integumentary Integumentary: Present: warm, dry - Psychiatric Psychiatric: other (Intubated, unresponsive) - Neurologic Neurologic: other (Intubated, unresponsive) - Allied Health Allied health notes reviewed: nursing HEART Score - HEART Score Troponin: Troponin T 0.021 ng/mL (0.00-0.029) 04/20/21 17:10 Results - Labs CBC & Chem 7: 05/09/21 05:30 05/09/21 05:30 Labs: Laboratory Last Values WBC 12.8 K/mm3 (4.5-11.0) H 05/09/21 05:30 RBC 2.98 M/mm3 (3.65-5.03) L 05/09/21 05:30 Hgb 8.1 gm/dl (10.1-14.3) L 05/09/21 05:30 Hct 25.4 % (30.3-42.9) L 05/09/21 05:30 MCV 85 fl (79-97) 05/09/21 05:30 MCH 27 pg (28-32) L 05/09/21 05:30 MCHC 32 % (30-34) 05/09/21 05:30 RDW 15.4 % (13.2-15.2) H 05/09/21 05:30 Plt Count 410 K/mm3 (140-440) 05/09/21 05:30 Add Manual Diff Complete 04/28/21 04:00 Total Counted 100 04/28/21 04:00 Seg Neutrophils % Information Technology Advisor 04/28/21 04:00 Seg Neuts % (Manual) 77.0 % (40.0-70.0) H 04/26/21 09:33 Band Neutrophils % 2.0 % 04/28/21 04:00 Lymphocytes % (Manual) 1.0 % (13.4-35.0) L 04/28/21 04:00 Reactive Lymphs % (Man) 0 % 04/28/21 04:00 Monocytes % (Manual) 1.0 % (0.0-7.3) 04/28/21 04:00 Eosinophils % (Manual) 3.0 % (0.0-4.3) 04/28/21 04:00 Metamyelocytes % 1.0 % 04/28/21 04:00 Myelocytes % 0 % 04/28/21 04:00 Promyelocytes % 0 % 04/28/21 04:00 Blast Cells % 0 % 04/28/21 04:00 Nucleated RBC % 4.0 % (0.0-0.9) H 04/28/21 04:00 Seg Neutrophils # Man 11.6 K/mm3 (1.8-7.7) H 04/28/21 04:00 Band Neutrophils # 0.3 K/mm3 04/28/21 04:00 Lymphocytes # (Manual) 0.1 K/mm3 (1.2-5.4) L 04/28/21 04:00 Abs React Lymphs (Man) 0.0 K/mm3 04/28/21 04:00 Monocytes # (Manual) 0.1 K/mm3 (0.0-0.8) 04/28/21 04:00 Eosinophils # (Manual) 0.4 K/mm3 (0.0-0.4) 04/28/21 04:00 Basophils # (Manual) 0.0 K/mm3 (0.0-0.1) 04/28/21 04:00 Metamyelocytes # 0.1 K/mm3 04/28/21 04:00 Myelocytes # 0.0 K/mm3 04/28/21 04:00 Promyelocytes # 0.0 K/mm3 04/28/21 04:00 Blast Cells # 0.0 K/mm3 04/28/21 04:00 WBC Morphology Not Reportable 04/28/21 04:00 Hypersegmented Neuts Not Reportable 04/28/21 04:00 Hyposegmented Neuts Not Reportable 04/28/21 04:00 Hypogranular Neuts Not Reportable 04/28/21 04:00 Smudge Cells Not Reportable 04/28/21 04:00 Toxic Granulation Not Reportable 04/28/21 04:00 Toxic Vacuolation Not Reportable 04/28/21 04:00 Dohle Bodies Not Reportable 04/28/21 04:00 Pelger-Huet Anomaly Not Reportable 04/28/21 04:00 Moni Rods Not Reportable 04/28/21 04:00 Platelet Estimate Consistent w auto 04/28/21 04:00 Clumped Platelets Not Reportable 04/28/21 04:00 Plt Clumps, EDTA Not Reportable 04/28/21 04:00 Large Platelets Few 04/28/21 04:00 Giant Platelets Not Reportable 04/28/21 04:00 Platelet Satelliting Not Reportable 04/28/21 04:00 Plt Morphology Comment Not Reportable 04/28/21 04:00 RBC Morphology Not Reportable 04/28/21 04:00 Dimorphic RBCs Not Reportable 04/28/21 04:00 Polychromasia Not Reportable 04/28/21 04:00 Hypochromasia Not Reportable 04/28/21 04:00 Poikilocytosis Not Reportable 04/28/21 04:00 Anisocytosis Not Reportable 04/28/21 04:00 Microcytosis Not Reportable 04/28/21 04:00 Macrocytosis Not Reportable 04/28/21 04:00 Spherocytes Not Reportable 04/28/21 04:00 Pappenheimer Bodies Not Reportable 04/28/21 04:00 Sickle Cells Not Reportable 04/28/21 04:00 Target Cells 1+ 04/28/21 04:00 Tear Drop Cells Not Reportable 04/28/21 04:00 Ovalocytes Not Reportable 04/28/21 04:00 Helmet Cells Not Reportable 04/28/21 04:00 Parkinson-Rainbow Bodies Not Reportable 04/28/21 04:00 [place] Rings Not Reportable 04/28/21 04:00 Ross Cells Not Reportable 04/28/21 04:00 Bite Cells Not Reportable 04/28/21 04:00 Crenated Cell Not Reportable 04/28/21 04:00 Elliptocytes Not Reportable 04/28/21 04:00 Acanthocytes (Spur) Not Reportable 04/28/21 04:00 Rouleaux Not Reportable 04/28/21 04:00 Hemoglobin C Crystals Not Reportable 04/28/21 04:00 Schistocytes Not Reportable 04/28/21 04:00 Malaria parasites Not Reportable 04/28/21 04:00 Herrera Bodies Not Reportable 04/28/21 04:00 Hem Pathologist Commnt No 04/28/21 04:00 PT 15.3 Sec. (12.2-14.9) H 04/28/21 05:00 INR 1.09 (0.87-1.13) 04/28/21 05:00 APTT 36.6 Sec. (24.2-36.6) 04/28/21 05:00 Heparin Anti-Xa, Unfract Negative (Negative) 04/24/21 17:29 ABG pH 7.487 (7.320-7.450) H 05/02/21 04:34 POC ABG pCO2 35.3 mmHg (32.0-48.0) 05/02/21 04:34 ABG pCO2 31.6 mm Hg 04/21/21 15:47 POC ABG pO2 78.6 mmHg (83-108) L 05/02/21 04:34 ABG pO2 168.1 mm Hg (80.0-90.0) H 04/21/21 15:47 POC ABG HCO3 26.1 05/02/21 04:34 ABG HCO3 23.3 mmol/L (20.0-26.0) 04/21/21 15:47 ABG O2 Saturation 96.0 (0-100) 05/02/21 04:34 ABG O2 Content 12.7 (0.0-44) 04/21/21 15:47 POC ABG Base Excess 2.9 05/02/21 04:34 ABG Base Excess 0.3 mmol/L (-2.0-3.0) 04/21/21 15:47 ABG Hemoglobin 11.5 (12.0-17.5) L 05/02/21 04:34 ABG Oxyhemoglobin 95.1 (94-98) 05/02/21 04:34 ABG Carboxyhemoglobin 1.0 % (0.0-5.0) 04/21/21 15:47 ABG Methemoglobin 0.3 (0.0-1.5) 05/02/21 04:34 ABG Sodium 138.6 mmol/L (136.0-145.0) 05/02/21 04:34 ABG Potassium 3.4 mmol/L (3.40-4.50) 05/02/21 04:34 ABG Chloride 105.0 mmol/L (98-107) 05/02/21 04:34 ABG Glucose 122 mg/dL (65-95) H 05/02/21 04:34 VBG pH 7.397 (7.320-7.420) 04/20/21 17:10 Oxyhemoglobin 97.5 % (95.0-99.0) 04/21/21 15:47 Carboxyhemoglobin 0.6 (0.5-1.5) 05/02/21 04:34 FiO2 100 % 04/21/21 15:47 FiO2 % 40.0 05/02/21 04:34 Sodium 150 mmol/L (137-145) H 05/09/21 05:30 Potassium 3.2 mmol/L (3.6-5.0) L 05/09/21 05:30 Chloride 110.2 mmol/L (98-107) H 05/09/21 05:30 Carbon Dioxide 27 mmol/L (22-30) 05/09/21 05:30 Anion Gap 16 mmol/L 05/09/21 05:30 BUN 37 mg/dL (7-17) H 05/09/21 05:30 Creatinine 1.8 mg/dL (0.6-1.2) H 05/09/21 05:30 Estimated GFR 33 ml/min 05/09/21 05:30 BUN/Creatinine Ratio 21 % 05/09/21 05:30 Glucose 191 mg/dL (65-100) H 05/09/21 05:30 POC Glucose 197 mg/dL (70-105) H 05/09/21 11:24 Hemoglobin A1c 17.1 % (4-6) H 04/22/21 15:55 Lactic Acid 1.90 mmol/L (0.7-2.0) 04/20/21 19:56 Calcium 8.5 mg/dL (8.4-10.2) 05/09/21 05:30 Phosphorus 3.60 mg/dL (2.5-4.5) 05/09/21 05:30 Magnesium 1.70 mg/dL (1.7-2.3) 05/08/21 05:12 Iron 62 ug/dL (37-170) 04/24/21 17:29 TIBC 285 mcg/dL (250-450) 04/24/21 17:29 % Saturation 21.75 % 04/24/21 17:29 Transferrin 112 mg/dl (192-382) L 04/24/21 17:29 Total Bilirubin 0.20 mg/dL (0.1-1.2) 05/03/21 04:00 Direct Bilirubin < 0.2 mg/dL (0-0.2) 04/29/21 04:00 Indirect Bilirubin 0.1 mg/dL 04/29/21 04:00 AST 53 units/L (5-40) H 05/03/21 04:00 ALT 55 units/L (7-56) 05/03/21 04:00 Alkaline Phosphatase 149 units/L (35-129) H 05/03/21 04:00 Ammonia 29.0 umol/L (25-60) 04/20/21 17:10 Total Creatine Kinase 1000 units/L (30-135) H 04/27/21 07:43 CK-MB (CK-2) 36.0 ng/mL (0.0-4.0) H 04/20/21 17:10 CK-MB (CK-2) Rel Index 0.9 (0-4) 04/20/21 17:10 Troponin T 0.021 ng/mL (0.00-0.029) 04/20/21 17:10 Serum Total Protein 5.5 g/dL (6.1-8.1) L 04/22/21 08:59 Total Protein 5.2 g/dL (6.3-8.2) L 05/03/21 04:00 Albumin 1.5 g/dL (3.9-5) L 05/03/21 04:00 Albumin/Globulin Ratio 0.4 % 05/03/21 04:00 Ljbju-6-Ukvuufueb 0.6 g/dL (0.2-0.3) H 04/22/21 08:59 Avpcx-7-Aezulexwr 1.0 g/dL (0.5-0.9) H 04/22/21 08:59 Beta Globulins 0.3 g/dL (0.2-0.5) 04/22/21 08:59 Gamma Globulins 0.6 g/dL (0.8-1.7) L 04/22/21 08:59 Abnorm Protein Band 1 see below 04/22/21 08:59 PEP Interpretation see below H 04/22/21 08:59 Triglycerides 80 mg/dL (2-149) 05/04/21 04:48 Cholesterol 90 mg/dL (50-199) 05/04/21 04:48 LDL Cholesterol Direct 51 mg/dL (50-130) 05/04/21 04:48 HDL Cholesterol 24 mg/dL (40-59) L 05/04/21 04:48 Cholesterol/HDL Ratio 3.75 % 05/04/21 04:48 Serotonin Release Assay See scanned result 04/24/21 17:29 TSH 6.040 mlU/mL (0.270-4.200) H 04/20/21 17:10 Free T4 0.93 ng/dL (0.76-1.46) 04/20/21 17:10 Arterial Blood Glucose 122 mg/dL (65-95) H 05/02/21 04:34 Arterial Blood Ionized Calcium 4.5 mg/dL (4.6-5.3) L 04/28/21 05:18 Urine Color Yellow (Yellow) 04/29/21 13:30 Urine Turbidity Turbid (Clear) 04/29/21 13:30 Urine pH 5.0 (5.0-7.0) 04/29/21 13:30 Ur Specific [place] 1.010 (1.003-1.030) 04/29/21 13:30 Urine Protein 100 mg/dl mg/dL (Negative) 04/29/21 13:30 Urine Glucose (UA) 150 mg/dL (Negative) 04/29/21 13:30 Urine Ketones Neg mg/dL (Negative) 04/29/21 13:30 Urine Blood Lg (Negative) 04/29/21 13:30 Urine Nitrite Neg (Negative) 04/29/21 13:30 Urine Bilirubin Neg (Negative) 04/29/21 13:30 Urine Urobilinogen < 2.0 mg/dL (<2.0) 04/29/21 13:30 Ur Leukocyte Esterase Lg (Negative) 04/29/21 13:30 Urine WBC (Auto) > 182.0 /HPF (0.0-6.0) H 04/29/21 13:30 Urine RBC (Auto) > 182.0 /HPF (0.0-6.0) 04/29/21 13:30 U Epithel Cells (Auto) 4.0 /HPF (0-13.0) 04/29/21 13:30 Urine WBC Clumps 3+ /HPF 04/29/21 13:30 Urine Mucus Few /HPF 04/29/21 13:30 Urine Yeast (Budding) 3+ /HPF 04/29/21 13:30 Urine Osmolality 446 Mosm/kg 04/21/21 08:01 Urine Creatinine 44.3 mg/dL (0.1-20.0) H 04/21/21 08:01 Urine Sodium 71 mmol/L 04/21/21 08:01 Urine Total Protein 12 mg/dL (5-11.8) H 04/21/21 08:01 CSF Appearance Clear 04/29/21 11:45 CSF Color Colorless 04/29/21 11:45 CSF WBC 14 /mm3 (1-10) 04/29/21 11:45 CSF RBC 324 /mm3 (0-0) 04/29/21 11:45 CSF Seg Neutrophils 50.0 % (0-6) 04/29/21 11:45 CSF Lymphocytes % 40.0 % (40-80) 04/29/21 11:45 CSF Reactive Lymphs Not Reportable 04/29/21 11:45 CSF Monocytes % 10.0 % (15-45) 04/29/21 11:45 CSF Eosinophils % Not Reportable 04/29/21 11:45 CSF Basophils Not Reportable 04/29/21 11:45 CSF Pathologist Review C 04/29/21 11:45 CSF Glucose 161 mg/dL 04/29/21 11:45 CSF Total Protein 51 mg/dL 04/29/21 11:45 Plasma/Serum Alcohol < 0.01 % (0-0.07) 04/20/21 17:10 Heparin-induced Plt Ab Negative (Negative) 04/24/21 17:29 UF Heparin High Dose 1 % Release 04/24/21 17:29 EFE UFH Low Dose 0.1 0 % Release 04/24/21 17:29 EFE UFH Low Dose 0.5 0 % Release 04/24/21 17:29 Coronavirus (PCR) Negative (Negative) 04/21/21 Unknown Hepatitis A IgM Ab Non-reactive (NonReactive) 04/27/21 12:49 Hep Bs Antigen Nonreactive (Negative) 04/27/21 12:49 Hep B Core IgM Ab Non-reactive (NonReactive) 04/27/21 12:49 Hepatitis C Antibody Non-reactive (NonReactive) 04/27/21 12:49 Blood Type O POSITIVE 05/02/21 12:00 Antibody Screen Negative 05/02/21 12:00 Crossmatch See Detail 05/02/21 12:00 Luther/IV: Voiding Method Indwelling Catheter Active Medications - Current Medications Current Medications: Generic Name Dose Route Start Last Admin Trade Name Freq PRN Reason Stop Dose Admin Acetaminophen 650 mg 04/20/21 21:31 05/01/21 18:15 Acetaminophen 325 Mg Tab PO 650 mg Q4H PRN Administration Pain MILD(1-3)/Fever >100.5/TURCIOS Albumin Human 25 gm 05/06/21 16:06 05/06/21 16:21 Albumin Human 25% (25 Gm/100 Ml) Inj IV 25 gm MITCH PRN Administration Hypotension Albuterol 2.5 mg 04/22/21 14:49 04/23/21 15:18 Albuterol 2.5 Mg/3 Ml Nebu IH 2.5 mg Q4HRT PRN Administration Shortness Of Breath Lipase/Protease/Amylase 1 each 04/25/21 14:13 Lipase 10,500/Protease 25,000/Amylase 43,750 (Units) Dr Vasquez FEEDTUBE PRN PRN For Clogged Feeding Tube Aspirin 81 mg 05/04/21 10:00 05/09/21 09:20 Aspirin 81 Mg Tab Chew FEEDTUBE 81 mg QDAY AZIZA Administration Atorvastatin Calcium 40 mg 05/04/21 22:00 05/08/21 21:22 Atorvastatin 40 Mg Tab FEEDTUBE 40 mg QHS AZIZA Administration Dextrose 50 ml 04/24/21 11:36 Dextrose 50% In Water (25gm) 50 Ml Syringe IV Q30MIN PRN Hypoglycemia Protocol Famotidine 10 mg 04/27/21 10:00 05/09/21 09:20 Famotidine 10 Mg Tab FEEDTUBE 10 mg BID AZIZA Administration Hydralazine HCl 10 mg 04/24/21 21:22 Hydralazine 20 Mg/1 Ml Inj IV Q4HR PRN elevated BP Hydrophilic Ointment 1 applic 04/26/21 11:16 Lip Therapy Vaseline TP Q2HR PRN Dry Lips NORepinephrine/NS 8 MG-250 ML 8 mg in 250 mls @ 3.75 mls/hr 04/26/21 16:00 05/04/21 21:34 Norepinephrine/Ns 8 Mg-250 Ml (Double Conc) IV 0 mcg/min TITRATE AZIZA 0 mls/hr Titration Protocol 2 MCG/MIN Sodium Chloride 100 mls @ 999 mls/hr 05/04/21 11:30 Nacl 0.9% IV MITCH PRN Hypotension Fluconazole 200 mg in 100 mls @ 100 mls/hr 05/05/21 15:00 05/08/21 15:53 Diflucan IV 05/09/21 15:59 100 mls/hr Q24H [facility] Administration Protocol Sodium Chloride 100 mls @ 999 mls/hr 05/06/21 16:06 Nacl 0.9% IV MITCH PRN Hypotension Insulin Human Lispro 0 unit 04/25/21 18:00 05/09/21 11:39 Insulin Lispro 100 Unit/Ml SUB-Q 3 unit Q6HR [facility] Administration Protocol Levothyroxine Sodium 50 mcg 05/03/21 06:00 05/09/21 06:04 Levothyroxine 50 Mcg Tab PO 50 mcg DAILY@0600 [facility] Administration Lorazepam 1 mg 04/26/21 11:15 04/30/21 23:00 Lorazepam 2 Mg/Ml Vial IV 1 mg Q4H PRN Administration Sedation Metoclopramide HCl 5 mg 04/20/21 21:31 Metoclopramide 10 Mg/2 Ml Inj IV Q6H PRN Nausea And Vomiting Midodrine 5 mg 05/08/21 09:00 05/09/21 08:39 Midodrine 5 Mg Tab PO Not Given TID@0800,1200,1600 [facility] Multi-Ingred Cream/Lotion/Oil/Oint 1 applic 04/26/21 11:16 Mineral Oil/Petrolatum, White Ophth Oint 3.5 Gm OU Q4HR PRN Dry Eye(s) Ondansetron HCl 4 mg 04/20/21 21:31 Ondansetron 4 Mg/2 Ml Inj IV Q8H PRN Nausea And Vomiting Potassium Chloride 40 meq 05/09/21 13:13 Potassium Chloride 20 Meq Packet FEEDTUBE 05/09/21 13:14 ONCE ONE Senna/Docusate Sodium 1 tab 04/26/21 22:00 05/09/21 09:20 Sennosides/Docusate Sodium 8.6/50 Mg Tab FEEDTUBE 1 tab BID AZIZA Administration Simple Syrup 15 ml 04/25/21 14:13 Simple Syrup 15 Ml FEEDTUBE PRN PRN Hypoglycemia Simple Syrup 30 ml 04/25/21 14:13 Simple Syrup 15 Ml FEEDTUBE PRN PRN Hypoglycemia Sodium Bicarbonate 325 mg 04/25/21 14:13 04/27/21 13:00 Sodium Bicarbonate 325 Mg Tab FEEDTUBE 325 mg PRN PRN Administration For Clogged Feeding Tube Sodium Bicarbonate 1,300 mg 04/27/21 14:00 05/09/21 08:39 Sodium Bicarbonate 650 Mg Tab PO 1,300 mg TID AZIZA Administration Sodium Chloride 10 ml 04/20/21 22:00 05/09/21 09:20 Sodium Chloride 0.9% 10 Ml Flush Syringe IV 10 ml BID AZIZA Administration Sodium Chloride 10 ml 04/20/21 21:31 Sodium Chloride 0.9% 10 Ml Flush Syringe IV PRN PRN LINE FLUSH Nutrition/Malnutrition Assess - Dietary Evaluation Nutrition/Malnutrition Findings: Nutrition Notes Start: 04/21/21 12:15 Freq: Status: Active Protocol: Document 05/04/21 16:15 JOSE (Rec: 05/04/21 16:26 JOSE [id number]) Nutrition Notes Initial or Follow up Brief Note Current Diet TF-Nepro w/CARBSTEADY @ 32 ml/ hr (since 04/29). Height 5 ft 2 in Weight 72.4 kg [place] Body Weight (kg) 50.00 BMI 29.2 Weight change and time frame No body weight change reported . Weight Status Overweight Subjective/Other Information RD consult for routine F/U on TF tolerance. TF continues as prescribed, therefore, well tolerated. Percent of energy/protein needs met: Prescribed TF-Nepro w/ CARBSTEADY @ 32 ml/hr provides for energy/protein needs (1, 389 Kcal/63 g) during LOS, 100 % Kcal; 72% AA. Current % PO Other Minimum of two criteria No #1 Nutrition Diagnosis Inadequate oral intake Diagnosis Progress(for reassessment Continues documentation) Nutrition Intervention Nutrition Support: Continue TF to Nepro w/ CARBSTEADY @ 32 ml/hr. Flush: 140 ml water Q 4 hr, or as per MD. % RDI: 100% Kcal; 72% AA. Goal #1 Provide at least 75% of energy /protein needs through Enteral Feeding during LOS. Follow-Up By: 05/11/21 Additional Comments Continue monitoring TF tolerance and BM. <TACHO RUBALCAVA - Last Filed: 05/14/21 12:43> Assessment and Plan Assessment and plan: I saw and evaluated the patient. Discussed with the nurse practitioner and agree with their findings and plan as documented in this note. Hospitalist Physical - Constitutional Vitals: Temp Pulse Resp BP Pulse Ox 99.9 F H 95 H 14 123/54 100 05/14/21 11:22 05/14/21 11:31 05/14/21 11:31 05/14/21 11:31 05/14/21 11:31 HEART Score - HEART Score Troponin: Troponin T 0.021 ng/mL (0.00-0.029) 04/20/21 17:10 Results - Labs CBC & Chem 7: 05/14/21 04:43 05/14/21 04:43 Labs: Laboratory Last Values WBC 10.1 K/mm3 (4.5-11.0) 05/14/21 04:43 RBC 3.02 M/mm3 (3.65-5.03) L 05/14/21 04:43 Hgb 8.3 gm/dl (10.1-14.3) L 05/14/21 04:43 Hct 25.6 % (30.3-42.9) L 05/14/21 04:43 MCV 85 fl (79-97) 05/14/21 04:43 MCH 28 pg (28-32) 05/14/21 04:43 MCHC 33 % (30-34) 05/14/21 04:43 RDW 15.5 % (13.2-15.2) H 05/14/21 04:43 Plt Count 482 K/mm3 (140-440) H 05/14/21 04:43 Add Manual Diff Complete 04/28/21 04:00 Total Counted 100 04/28/21 04:00 Seg Neutrophils % Information Technology Advisor 04/28/21 04:00 Seg Neuts % (Manual) 77.0 % (40.0-70.0) H 04/26/21 09:33 Band Neutrophils % 2.0 % 04/28/21 04:00 Lymphocytes % (Manual) 1.0 % (13.4-35.0) L 04/28/21 04:00 Reactive Lymphs % (Man) 0 % 04/28/21 04:00 Monocytes % (Manual) 1.0 % (0.0-7.3) 04/28/21 04:00 Eosinophils % (Manual) 3.0 % (0.0-4.3) 04/28/21 04:00 Metamyelocytes % 1.0 % 04/28/21 04:00 Myelocytes % 0 % 04/28/21 04:00 Promyelocytes % 0 % 04/28/21 04:00 Blast Cells % 0 % 04/28/21 04:00 Nucleated RBC % 4.0 % (0.0-0.9) H 04/28/21 04:00 Seg Neutrophils # Man 11.6 K/mm3 (1.8-7.7) H 04/28/21 04:00 Band Neutrophils # 0.3 K/mm3 04/28/21 04:00 Lymphocytes # (Manual) 0.1 K/mm3 (1.2-5.4) L 04/28/21 04:00 Abs React Lymphs (Man) 0.0 K/mm3 04/28/21 04:00 Monocytes # (Manual) 0.1 K/mm3 (0.0-0.8) 04/28/21 04:00 Eosinophils # (Manual) 0.4 K/mm3 (0.0-0.4) 04/28/21 04:00 Basophils # (Manual) 0.0 K/mm3 (0.0-0.1) 04/28/21 04:00 Metamyelocytes # 0.1 K/mm3 04/28/21 04:00 Myelocytes # 0.0 K/mm3 04/28/21 04:00 Promyelocytes # 0.0 K/mm3 04/28/21 04:00 Blast Cells # 0.0 K/mm3 04/28/21 04:00 WBC Morphology Not Reportable 04/28/21 04:00 Hypersegmented Neuts Not Reportable 04/28/21 04:00 Hyposegmented Neuts Not Reportable 04/28/21 04:00 Hypogranular Neuts Not Reportable 04/28/21 04:00 Smudge Cells Not Reportable 04/28/21 04:00 Toxic Granulation Not Reportable 04/28/21 04:00 Toxic Vacuolation Not Reportable 04/28/21 04:00 Dohle Bodies Not Reportable 04/28/21 04:00 Pelger-Huet Anomaly Not Reportable 04/28/21 04:00 Moni Rods Not Reportable 04/28/21 04:00 Platelet Estimate Consistent w auto 04/28/21 04:00 Clumped Platelets Not Reportable 04/28/21 04:00 Plt Clumps, EDTA Not Reportable 04/28/21 04:00 Large Platelets Few 04/28/21 04:00 Giant Platelets Not Reportable 04/28/21 04:00 Platelet Satelliting Not Reportable 04/28/21 04:00 Plt Morphology Comment Not Reportable 04/28/21 04:00 RBC Morphology Not Reportable 04/28/21 04:00 Dimorphic RBCs Not Reportable 04/28/21 04:00 Polychromasia Not Reportable 04/28/21 04:00 Hypochromasia Not Reportable 04/28/21 04:00 Poikilocytosis Not Reportable 04/28/21 04:00 Anisocytosis Not Reportable 04/28/21 04:00 Microcytosis Not Reportable 04/28/21 04:00 Macrocytosis Not Reportable 04/28/21 04:00 Spherocytes Not Reportable 04/28/21 04:00 Pappenheimer Bodies Not Reportable 04/28/21 04:00 Sickle Cells Not Reportable 04/28/21 04:00 Target Cells 1+ 04/28/21 04:00 Tear Drop Cells Not Reportable 04/28/21 04:00 Ovalocytes Not Reportable 04/28/21 04:00 Helmet Cells Not Reportable 04/28/21 04:00 Parkinson-Rainbow Bodies Not Reportable 04/28/21 04:00 [place] Rings Not Reportable 04/28/21 04:00 [place] Cells Not Reportable 04/28/21 04:00 Bite Cells Not Reportable 04/28/21 04:00 Crenated Cell Not Reportable 04/28/21 04:00 Elliptocytes Not Reportable 04/28/21 04:00 Acanthocytes (Spur) Not Reportable 04/28/21 04:00 Rouleaux Not Reportable 04/28/21 04:00 Hemoglobin C Crystals Not Reportable 04/28/21 04:00 Schistocytes Not Reportable 04/28/21 04:00 Malaria parasites Not Reportable 04/28/21 04:00 Herrera Bodies Not Reportable 04/28/21 04:00 Hem Pathologist Commnt No 04/28/21 04:00 PT 14.7 Sec. (12.2-14.9) 05/13/21 04:24 INR 1.04 (0.87-1.13) 05/13/21 04:24 APTT 36.6 Sec. (24.2-36.6) 04/28/21 05:00 Heparin Anti-Xa, Unfract Negative (Negative) 04/24/21 17:29 ABG pH 7.487 (7.320-7.450) H 05/02/21 04:34 POC ABG pCO2 35.3 mmHg (32.0-48.0) 05/02/21 04:34 ABG pCO2 31.6 mm Hg 04/21/21 15:47 POC ABG pO2 78.6 mmHg (83-108) L 05/02/21 04:34 ABG pO2 168.1 mm Hg (80.0-90.0) H 04/21/21 15:47 POC ABG HCO3 26.1 05/02/21 04:34 ABG HCO3 23.3 mmol/L (20.0-26.0) 04/21/21 15:47 ABG O2 Saturation 96.0 (0-100) 05/02/21 04:34 ABG O2 Content 12.7 (0.0-44) 04/21/21 15:47 POC ABG Base Excess 2.9 05/02/21 04:34 ABG Base Excess 0.3 mmol/L (-2.0-3.0) 04/21/21 15:47 ABG Hemoglobin 11.5 (12.0-17.5) L 05/02/21 04:34 ABG Oxyhemoglobin 95.1 (94-98) 05/02/21 04:34 ABG Carboxyhemoglobin 1.0 % (0.0-5.0) 04/21/21 15:47 ABG Methemoglobin 0.3 (0.0-1.5) 05/02/21 04:34 ABG Sodium 138.6 mmol/L (136.0-145.0) 05/02/21 04:34 ABG Potassium 3.4 mmol/L (3.40-4.50) 05/02/21 04:34 ABG Chloride 105.0 mmol/L (98-107) 05/02/21 04:34 ABG Glucose 122 mg/dL (65-95) H 05/02/21 04:34 VBG pH 7.397 (7.320-7.420) 04/20/21 17:10 Oxyhemoglobin 97.5 % (95.0-99.0) 04/21/21 15:47 Carboxyhemoglobin 0.6 (0.5-1.5) 05/02/21 04:34 FiO2 100 % 04/21/21 15:47 FiO2 % 40.0 05/02/21 04:34 Sodium 138 mmol/L (137-145) 05/14/21 04:43 Potassium 4.0 mmol/L (3.6-5.0) 05/14/21 04:43 Chloride 104.1 mmol/L (98-107) 05/14/21 04:43 Carbon Dioxide 23 mmol/L (22-30) 05/14/21 04:43 Anion Gap 15 mmol/L 05/14/21 04:43 BUN 29 mg/dL (7-17) H 05/14/21 04:43 Creatinine 1.2 mg/dL (0.6-1.2) 05/14/21 04:43 Estimated GFR 52 ml/min 05/14/21 04:43 BUN/Creatinine Ratio 24 % 05/14/21 04:43 Glucose 192 mg/dL (65-100) H 05/14/21 04:43 POC Glucose 215 mg/dL (70-105) H 05/14/21 10:59 Hemoglobin A1c 17.1 % (4-6) H 04/22/21 15:55 Lactic Acid 1.90 mmol/L (0.7-2.0) 04/20/21 19:56 Calcium 8.1 mg/dL (8.4-10.2) L 05/14/21 04:43 Phosphorus 3.20 mg/dL (2.5-4.5) 05/14/21 04:43 Magnesium 2.20 mg/dL (1.7-2.3) 05/14/21 04:43 Iron 62 ug/dL (37-170) 04/24/21 17:29 TIBC 285 mcg/dL (250-450) 04/24/21 17:29 % Saturation 21.75 % 04/24/21 17:29 Transferrin 112 mg/dl (192-382) L 04/24/21 17:29 Total Bilirubin 0.20 mg/dL (0.1-1.2) 05/03/21 04:00 Direct Bilirubin < 0.2 mg/dL (0-0.2) 04/29/21 04:00 Indirect Bilirubin 0.1 mg/dL 04/29/21 04:00 AST 53 units/L (5-40) H 05/03/21 04:00 ALT 55 units/L (7-56) 05/03/21 04:00 Alkaline Phosphatase 149 units/L (35-129) H 05/03/21 04:00 Ammonia 29.0 umol/L (25-60) 04/20/21 17:10 Total Creatine Kinase 1000 units/L (30-135) H 04/27/21 07:43 CK-MB (CK-2) 36.0 ng/mL (0.0-4.0) H 04/20/21 17:10 CK-MB (CK-2) Rel Index 0.9 (0-4) 04/20/21 17:10 Troponin T 0.021 ng/mL (0.00-0.029) 04/20/21 17:10 Serum Total Protein 5.5 g/dL (6.1-8.1) L 04/22/21 08:59 Total Protein 5.2 g/dL (6.3-8.2) L 05/03/21 04:00 Albumin 1.5 g/dL (3.9-5) L 05/03/21 04:00 Albumin/Globulin Ratio 0.4 % 05/03/21 04:00 Tlwel-3-Dgrxhsdur 0.6 g/dL (0.2-0.3) H 04/22/21 08:59 Udwzz-1-Xtspocffx 1.0 g/dL (0.5-0.9) H 04/22/21 08:59 Beta Globulins 0.3 g/dL (0.2-0.5) 04/22/21 08:59 Gamma Globulins 0.6 g/dL (0.8-1.7) L 04/22/21 08:59 Abnorm Protein Band 1 see below 04/22/21 08:59 PEP Interpretation see below H 04/22/21 08:59 Triglycerides 80 mg/dL (2-149) 05/04/21 04:48 Cholesterol 90 mg/dL (50-199) 05/04/21 04:48 LDL Cholesterol Direct 51 mg/dL (50-130) 05/04/21 04:48 HDL Cholesterol 24 mg/dL (40-59) L 05/04/21 04:48 Cholesterol/HDL Ratio 3.75 % 05/04/21 04:48 Serotonin Release Assay See scanned result 04/24/21 17:29 TSH 6.040 mlU/mL (0.270-4.200) H 04/20/21 17:10 Free T4 0.93 ng/dL (0.76-1.46) 04/20/21 17:10 Arterial Blood Glucose 122 mg/dL (65-95) H 05/02/21 04:34 Arterial Blood Ionized Calcium 4.5 mg/dL (4.6-5.3) L 04/28/21 05:18 Urine Color Yellow (Yellow) 04/29/21 13:30 Urine Turbidity Turbid (Clear) 04/29/21 13:30 Urine pH 5.0 (5.0-7.0) 04/29/21 13:30 Ur Specific [place] 1.010 (1.003-1.030) 04/29/21 13:30 Urine Protein 100 mg/dl mg/dL (Negative) 04/29/21 13:30 Urine Glucose (UA) 150 mg/dL (Negative) 04/29/21 13:30 Urine Ketones Neg mg/dL (Negative) 04/29/21 13:30 Urine Blood Lg (Negative) 04/29/21 13:30 Urine Nitrite Neg (Negative) 04/29/21 13:30 Urine Bilirubin Neg (Negative) 04/29/21 13:30 Urine Urobilinogen < 2.0 mg/dL (<2.0) 04/29/21 13:30 Ur Leukocyte Esterase Lg (Negative) 04/29/21 13:30 Urine WBC (Auto) > 182.0 /HPF (0.0-6.0) H 04/29/21 13:30 Urine RBC (Auto) > 182.0 /HPF (0.0-6.0) 04/29/21 13:30 U Epithel Cells (Auto) 4.0 /HPF (0-13.0) 04/29/21 13:30 Urine WBC Clumps 3+ /HPF 04/29/21 13:30 Urine Mucus Few /HPF 04/29/21 13:30 Urine Yeast (Budding) 3+ /HPF 04/29/21 13:30 Urine Osmolality 446 Mosm/kg 04/21/21 08:01 Urine Total Volume 1700 ml 05/08/21 09:34 Urine Creatinine 56.0 mg/dL (0.1-20.0) H 05/08/21 09:34 Ur Creatinine 24 Hour 1.0 (0.8-2.8) 05/08/21 09:34 Urine Sodium 71 mmol/L 04/21/21 08:01 Urine Total Protein 12 mg/dL (5-11.8) H 04/21/21 08:01 CSF Appearance Clear 04/29/21 11:45 CSF Color Colorless 04/29/21 11:45 CSF WBC 14 /mm3 (1-10) 04/29/21 11:45 CSF RBC 324 /mm3 (0-0) 04/29/21 11:45 CSF Seg Neutrophils 50.0 % (0-6) 04/29/21 11:45 CSF Lymphocytes % 40.0 % (40-80) 04/29/21 11:45 CSF Reactive Lymphs Not Reportable 04/29/21 11:45 CSF Monocytes % 10.0 % (15-45) 04/29/21 11:45 CSF Eosinophils % Not Reportable 04/29/21 11:45 CSF Basophils Not Reportable 04/29/21 11:45 CSF Pathologist Review C 04/29/21 11:45 CSF Glucose 161 mg/dL 04/29/21 11:45 CSF Total Protein 51 mg/dL 04/29/21 11:45 Plasma/Serum Alcohol < 0.01 % (0-0.07) 04/20/21 17:10 Heparin-induced Plt Ab Negative (Negative) 04/24/21 17:29 UF Heparin High Dose 1 % Release 04/24/21 17:29 EFE UFH Low Dose 0.1 0 % Release 04/24/21 17:29 EFE UFH Low Dose 0.5 0 % Release 04/24/21 17:29 Coronavirus (PCR) Negative (Negative) 04/21/21 Unknown Hepatitis A IgM Ab Non-reactive (NonReactive) 04/27/21 12:49 Hep Bs Antigen Nonreactive (Negative) 04/27/21 12:49 Hep B Core IgM Ab Non-reactive (NonReactive) 04/27/21 12:49 Hepatitis C Antibody Non-reactive (NonReactive) 04/27/21 12:49 Blood Type O POSITIVE 05/02/21 12:00 Antibody Screen Negative 05/02/21 12:00 Crossmatch See Detail 05/02/21 12:00 Microbiology: Microbiology 05/02/21 Unknown Urine,Catheterized - Indwelling Catheter Urine Culture - Final Roselyn Tropicalis Luther/IV: Voiding Method Indwelling Catheter Active Medications - Current Medications Current Medications: Generic Name Dose Route Start Last Admin Trade Name Freq PRN Reason Stop Dose Admin Acetaminophen 650 mg 04/20/21 21:31 05/14/21 09:50 Acetaminophen 325 Mg Tab PO 650 mg Q4H PRN Administration Pain MILD(1-3)/Fever >100.5/TURCIOS Albumin Human 25 gm 05/06/21 16:06 05/06/21 16:21 Albumin Human 25% (25 Gm/100 Ml) Inj IV 25 gm MITCH PRN Administration Hypotension Albuterol 2.5 mg 04/22/21 14:49 04/23/21 15:18 Albuterol 2.5 Mg/3 Ml Nebu IH 2.5 mg Q4HRT PRN Administration Shortness Of Breath Amlodipine Besylate 5 mg 05/12/21 10:00 05/14/21 09:49 Amlodipine 5 Mg Tab PO 5 mg QDAY AZIZA Administration Lipase/Protease/Amylase 1 each 04/25/21 14:13 Lipase 10,500/Protease 25,000/Amylase 43,750 (Units) Dr Vasquez FEEDTUBE PRN PRN For Clogged Feeding Tube Aspirin 81 mg 05/04/21 10:00 05/14/21 09:50 Aspirin 81 Mg Tab Chew FEEDTUBE 81 mg QDAY AZIZA Administration Atorvastatin Calcium 40 mg 05/04/21 22:00 05/13/21 21:39 Atorvastatin 40 Mg Tab FEEDTUBE 40 mg QHS AZIZA Administration Dextrose 50 ml 04/24/21 11:36 Dextrose 50% In Water (25gm) 50 Ml Syringe IV Q30MIN PRN Hypoglycemia Protocol Famotidine 10 mg 04/27/21 10:00 05/14/21 09:50 Famotidine 10 Mg Tab FEEDTUBE 10 mg BID AZIZA Administration Heparin Sodium (Porcine) 5,000 unit 05/10/21 22:00 05/14/21 09:50 Heparin 5,000 Unit/1 Ml Vial SUB-Q 5,000 unit Q12HR AZIZA Administration Hydrophilic Ointment 1 applic 04/26/21 11:16 Lip Therapy Vaseline TP Q2HR PRN Dry Lips Sodium Chloride 1,000 mls @ 100 mls/hr 05/14/21 08:30 05/14/21 09:53 Nacl 0.9% 1000 Ml IV 05/14/21 18:29 100 mls/hr DIRECT AZIZA Administration Insulin Human Lispro 0 unit 04/25/21 18:00 05/14/21 12:05 Insulin Lispro 100 Unit/Ml SUB-Q 4 unit Q6HR AZIZA Administration Protocol Labetalol HCl 20 mg 05/12/21 11:34 05/12/21 21:35 Labetalol 20 Mg/4 Ml Inj IV 20 mg Q4H PRN Administration SBP >/=170 Levothyroxine Sodium 50 mcg 05/03/21 06:00 05/14/21 05:27 Levothyroxine 50 Mcg Tab PO 50 mcg DAILY@0600 AZIZA Administration Lorazepam 1 mg 04/26/21 11:15 05/12/21 16:27 Lorazepam 2 Mg/Ml Vial IV 1 mg Q4H PRN Administration Sedation Metoclopramide HCl 5 mg 04/20/21 21:31 Metoclopramide 10 Mg/2 Ml Inj IV Q6H PRN Nausea And Vomiting Multi-Ingred Cream/Lotion/Oil/Oint 1 applic 04/26/21 11:16 Mineral Oil/Petrolatum, White Ophth Oint 3.5 Gm OU Q4HR PRN Dry Eye(s) Ondansetron HCl 4 mg 04/20/21 21:31 Ondansetron 4 Mg/2 Ml Inj IV Q8H PRN Nausea And Vomiting Senna/Docusate Sodium 1 tab 04/26/21 22:00 05/14/21 09:50 Sennosides/Docusate Sodium 8.6/50 Mg Tab FEEDTUBE 1 tab BID AZIZA Administration Simple Syrup 15 ml 04/25/21 14:13 Simple Syrup 15 Ml FEEDTUBE PRN PRN Hypoglycemia Simple Syrup 30 ml 04/25/21 14:13 Simple Syrup 15 Ml FEEDTUBE PRN PRN Hypoglycemia Sodium Bicarbonate 325 mg 04/25/21 14:13 04/27/21 13:00 Sodium Bicarbonate 325 Mg Tab FEEDTUBE 325 mg PRN PRN Administration For Clogged Feeding Tube Sodium Bicarbonate 1,300 mg 04/27/21 14:00 05/14/21 08:48 Sodium Bicarbonate 650 Mg Tab PO 1,300 mg TID AZIZA Administration Sodium Chloride 10 ml 04/20/21 22:00 05/14/21 09:51 Sodium Chloride 0.9% 10 Ml Flush Syringe IV 10 ml BID AZIZA Administration Sodium Chloride 10 ml 04/20/21 21:31 Sodium Chloride 0.9% 10 Ml Flush Syringe IV PRN PRN LINE FLUSH Nutrition/Malnutrition Assess - Dietary Evaluation Nutrition/Malnutrition Findings: Nutrition Notes Start: 04/21/21 12:15 Freq: Status: Active Protocol: Document 05/13/21 15:36 TAMMY (Rec: 05/13/21 15:47 [facility] [id number]) Nutrition Notes Initial or Follow up Reassessment Current Diagnosis Sepsis,Respiratory Failure, Stroke Other Pertinent Diagnosis Acute metabolic encephalopathy , pneu, UTI Current Diet NPO Labs/Tests BUN 30 Mg 1.6 Pertinent Medications Mag sulfate x 1 dose Height 5 ft 2 in Weight 72.4 kg [place] Body Weight (kg) 50.00 BMI 29.2 Weight Status Overweight Subjective/Other Information Pt remains on vent support. TF off; pt scheduled for trach and PEG placement today. Unable to place PEG sec to suspected anatomical abnormality. Interventional radiology consulted for PEG placement. Per nephrology, SYED resolving; no indication for HD as VasCath has been removed. Minimum of two criteria No #1 Nutrition Diagnosis Inadequate oral intake Diagnosis Progress(for reassessment Continues documentation) Is patient on ventilator? Yes Is Patient Ambulatory and/or Out of Bed No REE-([facility]-confined to bed) 1986.420 Calculation Used for Recommendations [facility] Additional Notes Pro needs 1.2-2g/k-145g/ day Fluid needs 1ml/kcal Nutrition Intervention Nutrition Support: When feasible, resume TF, but change formula to Glucerna 1.2 at 50ml/hr with 80ml water flush q4h. Goal #1 Resume TF to meet nutrient needs Follow-Up By: 05/16/21 Additional Comments F/U: PEG placement, TF restart with Glucerna 1.2, vent status
[2021-05-09] MEDS: FLUCONAZOLE 200 MG 200 MG/100 ML BAG IV SCH (14:02)
--- NOTE | 2021-05-09 15:34 | Progress Note ---
Assessment and Plan Cultures: 04/21/2021 blood culture: No growth 04/21/2021 COVID-19 PCR: Negative 04/26/2021 sputum culture: Roselyn nonalbicans 04/29/2021 tracheal aspirate culture: Moderate growth of usual respiratory stanley 04/29/2021 blood culture: No growth 05/02/2021 urine culture: yeast A/P: 80-year-old female who is a intermediate resident, with hypothyroidism, GERD, hyperlipidemia, schizophrenia, dementia was admitted on 04/20/2021 after being found unresponsive by the staff: #Septic shock: Likely from pneumonia and UTI. 04/29/2021 UA showed significant pyuria. Luther was changed. Typically candiduria does not need antifungal therapy especially since Luther was changed. However, given septic shock, treated with fluconazole 200 mg daily x 5 days. #Acute respiratory failure: On the vent #Acute renal failure: Renally adjust antibiotics. On dialysis. #Acute metabolic encephalopathy: related to CVA and severe hyponatremia which peaked at sodium of 179. #Acute CVA: neurology following. Recs: -completed 7 days of meropenem -fluconazole, D5 of 5 today, then stop Juanita Darling MD, FACP, [facility] ([facility] O: [phone] F: [phone] Subjective Date of service: 05/09/21 Principal diagnosis: Acute respiratory failure Interval history: No fever. Remains on the vent. Remains off pressors. Objective - Exam Narrative Exam: Physical Exam: Constitutional: sedated, intubated, on the vent Head, Ears, Nose: Normocephalic, atraumatic. External ears, nose normal Eyes: Conjunctivae/corneas clear. No icterus. No ptosis. Neck: intubated Oral: intubated Cardiovascular: S1, S2 + Respiratory: AE fair bilaterally and equal GI: Soft, bowel sounds + Musculoskeletal: b/l UE swelling + Skin: No rash or abscess Hem/Lymphatic: No palpable cervical or supraclavicular nodes. No lymphangitis Psych: no agitation Neurological: sedated, intubated, on the vent, exam limited - Constitutional Vitals: Vital Signs Temp Pulse Resp BP Pulse Ox 99.5 F 85 19 129/56 98 05/09/21 11:59 05/09/21 12:00 05/09/21 12:00 05/09/21 12:00 05/09/21 12:00 Temperature -Last 24 Hours Temperature 99.5 F Temperature 99.1 F Temperature 98.8 F Temperature 99.7 F Temperature 98.4 F Temperature 97.5 F - Labs CBC & Chem 7: 05/09/21 05:30 05/09/21 05:30 Labs: Abnormal lab results 05/08/21 05/08/21 05/09/21 Range/Units 16:55 23:57 05:30 WBC 12.8 H (4.5-11.0) K/mm3 RBC 2.98 L (3.65-5.03) M/mm3 Hgb 8.1 L (10.1-14.3) gm/dl Hct 25.4 L (30.3-42.9) % MCH 27 L (28-32) pg RDW 15.4 H (13.2-15.2) % Sodium (137-145) mmol/L Potassium (3.6-5.0) mmol/L Chloride (98-107) mmol/L BUN (7-17) mg/dL Creatinine (0.6-1.2) mg/dL Glucose (65-100) mg/dL POC Glucose 179 H 183 H (70-105) mg/dL 05/09/21 05/09/21 05/09/21 Range/Units 05:30 05:31 11:24 WBC (4.5-11.0) K/mm3 RBC (3.65-5.03) M/mm3 Hgb (10.1-14.3) gm/dl Hct (30.3-42.9) % MCH (28-32) pg RDW (13.2-15.2) % Sodium 150 H (137-145) mmol/L Potassium 3.2 L (3.6-5.0) mmol/L Chloride 110.2 H (98-107) mmol/L BUN 37 H (7-17) mg/dL Creatinine 1.8 H (0.6-1.2) mg/dL Glucose 191 H (65-100) mg/dL POC Glucose 120 H 197 H (70-105) mg/dL
[2021-05-10] MEDS: INSULIN LISPRO 100 UNIT/ML SUB-Q SCH ×4 (00:09→18:04)
[2021-05-10] MEDS: LEVOTHYROXINE 50 MCG TAB PO SCH (06:20)
[2021-05-10 06:33] LABS: Hematocrit 25.6 % (30.3-42.9); Hemoglobin 8.2 gm/dl (10.1-14.3); Mean Corpuscular HGB Conc 32 % (30-34); Mean Corpuscular Volume 86 fl (79-97); Platelet Count 456 K/mm3 (140-440); Red Blood Count 2.99 M/mm3 (3.65-5.03); Red Cell Distribution Width 15.4 % (13.2-15.2)
[2021-05-10 06:54] LABS: Calcium 8.6 mg/dL (8.4-10.2)
[2021-05-10] MEDS: SODIUM BICARBONATE 650 MG TAB PO SCH ×3 (08:27→20:14)
[2021-05-10] MEDS ORDERED: MAGNESIUM SULFATE 2 GM/50 ML BAG IV SCH (08:30)
--- NOTE | 2021-05-10 09:12 | Progress Note ---
Assessment and Plan (1) Acute metabolic encephalopathy (2) Diabetic hyperosmolar non-ketotic state 3) SYED (acute kidney injury) (4) Dehydration (5) Hypernatremia (6) Rhabdomyolysis (7) Hypernatremia 8) GERD (gastroesophageal reflux disease) (9) Metabolic acidosis (10) Leukocytosis No indication for HD today cont to have good UOP, Cr is improving will check 24 hours creatinine clearance-~30 ml/min Na is imporving, cont water flushes will assess dialysis needs daily renally dose meds Strict I&O Subjective Date of service: 05/10/21 Principal diagnosis: Acute respiratory failure Interval history: no overnight events, intubated Objective - Vital Signs Vital signs: Vital Signs - 12hr 05/09/21 05/09/21 05/09/21 21:30 21:54 22:00 Temperature Pulse Rate 85 92 H 92 H Pulse Rate [ From Monitor] Respiratory 14 19 16 Rate Blood Pressure 133/57 133/57 163/70 O2 Sat by Pulse 98 99 99 Oximetry 05/09/21 05/09/21 05/09/21 22:30 23:00 23:30 Temperature Pulse Rate 87 86 91 H Pulse Rate [ From Monitor] Respiratory 33 H 21 18 Rate Blood Pressure 152/67 145/65 155/72 O2 Sat by Pulse 99 98 98 Oximetry 05/10/21 05/10/21 05/10/21 00:00 00:30 01:00 Temperature 99.6 F Pulse Rate 93 H 88 83 Pulse Rate [ From Monitor] Respiratory 16 18 14 Rate Blood Pressure 167/73 168/71 133/58 O2 Sat by Pulse 98 98 97 Oximetry 05/10/21 05/10/21 05/10/21 01:30 02:00 02:30 Temperature Pulse Rate 96 H 88 87 Pulse Rate [ From Monitor] Respiratory 14 21 16 Rate Blood Pressure 180/84 157/65 149/69 O2 Sat by Pulse 99 98 98 Oximetry 05/10/21 05/10/21 05/10/21 03:00 03:30 03:55 Temperature Pulse Rate 86 77 88 Pulse Rate [ From Monitor] Respiratory 15 14 Rate Blood Pressure 157/69 141/60 141/60 O2 Sat by Pulse 98 97 97 Oximetry 05/10/21 05/10/21 05/10/21 04:00 04:30 05:00 Temperature 98.2 F Pulse Rate 93 H 93 H 92 H Pulse Rate [ From Monitor] Respiratory 17 16 16 Rate Blood Pressure 141/60 171/78 157/94 O2 Sat by Pulse 100 97 98 Oximetry 05/10/21 05/10/21 05/10/21 05:30 06:00 06:30 Temperature Pulse Rate 90 80 88 Pulse Rate [ From Monitor] Respiratory 15 14 15 Rate Blood Pressure 156/73 144/61 156/71 O2 Sat by Pulse 98 96 99 Oximetry 05/10/21 05/10/21 05/10/21 07:00 07:30 08:00 Temperature 99 F Pulse Rate 85 86 84 Pulse Rate [ 91 H From Monitor] Respiratory 23 14 20 Rate Blood Pressure 159/69 150/65 141/68 O2 Sat by Pulse 99 97 99 Oximetry 05/10/21 05/10/21 08:30 09:00 Temperature Pulse Rate 89 95 H Pulse Rate [ From Monitor] Respiratory 14 16 Rate Blood Pressure 157/75 157/75 O2 Sat by Pulse 97 98 Oximetry - Lab 05/10/21 05:00 05/10/21 05:00 Most recent lab results ABG pH 7.487 (7.320-7.450) H 05/02/21 04:34 ABG pCO2 31.6 mm Hg 04/21/21 15:47 ABG pO2 168.1 mm Hg (80.0-90.0) H 04/21/21 15:47 ABG HCO3 23.3 mmol/L (20.0-26.0) 04/21/21 15:47 ABG O2 Saturation 96.0 (0-100) 05/02/21 04:34 Calcium 8.6 mg/dL (8.4-10.2) 05/10/21 05:00 Phosphorus 2.90 mg/dL (2.5-4.5) 05/10/21 05:00 Magnesium 1.70 mg/dL (1.7-2.3) 05/10/21 05:00 Urine Creatinine 56.0 mg/dL (0.1-20.0) H 05/08/21 09:34 Urine Sodium 71 mmol/L 04/21/21 08:01 Urine Total Protein 12 mg/dL (5-11.8) H 04/21/21 08:01 Medications & Allergies - Medications Allergies/Adverse Reactions: Allergies No Known Allergies Allergy (Unverified 04/20/21 14:35) Active Medications: Generic Name Dose Route Start Last Admin Trade Name Freq PRN Reason Stop Dose Admin Acetaminophen 650 mg 04/20/21 21:31 05/01/21 18:15 Acetaminophen 325 Mg Tab PO 650 mg Q4H PRN Administration Pain MILD(1-3)/Fever >100.5/TURCIOS Albumin Human 25 gm 05/06/21 16:06 05/06/21 16:21 Albumin Human 25% (25 Gm/100 Ml) Inj IV 25 gm MITCH PRN Administration Hypotension Albuterol 2.5 mg 04/22/21 14:49 04/23/21 15:18 Albuterol 2.5 Mg/3 Ml Nebu IH 2.5 mg Q4HRT PRN Administration Shortness Of Breath Lipase/Protease/Amylase 1 each 04/25/21 14:13 Lipase 10,500/Protease 25,000/Amylase 43,750 (Units) Dr Vasquez FEEDTUBE PRN PRN For Clogged Feeding Tube Aspirin 81 mg 05/04/21 10:00 05/09/21 09:20 Aspirin 81 Mg Tab Chew FEEDTUBE 81 mg QDAY AZIZA Administration Atorvastatin Calcium 40 mg 05/04/21 22:00 05/09/21 22:38 Atorvastatin 40 Mg Tab FEEDTUBE 40 mg QHS AZIZA Administration Dextrose 50 ml 04/24/21 11:36 Dextrose 50% In Water (25gm) 50 Ml Syringe IV Q30MIN PRN Hypoglycemia Protocol Famotidine 10 mg 04/27/21 10:00 05/09/21 22:38 Famotidine 10 Mg Tab FEEDTUBE 10 mg BID AZIZA Administration Hydralazine HCl 10 mg 04/24/21 21:22 Hydralazine 20 Mg/1 Ml Inj IV Q4HR PRN elevated BP Hydrophilic Ointment 1 applic 04/26/21 11:16 Lip Therapy Vaseline TP Q2HR PRN Dry Lips NORepinephrine/NS 8 MG-250 ML 8 mg in 250 mls @ 3.75 mls/hr 04/26/21 16:00 05/04/21 21:34 Norepinephrine/Ns 8 Mg-250 Ml (Double Conc) IV 0 mcg/min TITRATE AZIZA 0 mls/hr Titration Protocol 2 MCG/MIN Sodium Chloride 100 mls @ 999 mls/hr 05/06/21 16:06 Nacl 0.9% IV MITCH PRN Hypotension Magnesium Sulfate 2 gm in 50 mls @ 25 mls/hr 05/10/21 08:30 Magnesium Sulfate 2gm/50ml IV 05/10/21 11:30 ONCE@0830 [facility] Insulin Human Lispro 0 unit 04/25/21 18:00 05/10/21 06:20 Insulin Lispro 100 Unit/Ml SUB-Q 3 unit Q6HR [facility] Administration Protocol Levothyroxine Sodium 50 mcg 05/03/21 06:00 05/10/21 06:20 Levothyroxine 50 Mcg Tab PO 50 mcg DAILY@0600 [facility] Administration Lorazepam 1 mg 04/26/21 11:15 04/30/21 23:00 Lorazepam 2 Mg/Ml Vial IV 1 mg Q4H PRN Administration Sedation Metoclopramide HCl 5 mg 04/20/21 21:31 Metoclopramide 10 Mg/2 Ml Inj IV Q6H PRN Nausea And Vomiting Midodrine 5 mg 05/08/21 09:00 05/09/21 15:49 Midodrine 5 Mg Tab PO Not Given TID@0800,1200,1600 [facility] Multi-Ingred Cream/Lotion/Oil/Oint 1 applic 04/26/21 11:16 Mineral Oil/Petrolatum, White Ophth Oint 3.5 Gm OU Q4HR PRN Dry Eye(s) Ondansetron HCl 4 mg 04/20/21 21:31 Ondansetron 4 Mg/2 Ml Inj IV Q8H PRN Nausea And Vomiting Senna/Docusate Sodium 1 tab 04/26/21 22:00 05/09/21 22:39 Sennosides/Docusate Sodium 8.6/50 Mg Tab FEEDTUBE 1 tab BID AZIZA Administration Simple Syrup 15 ml 04/25/21 14:13 Simple Syrup 15 Ml FEEDTUBE PRN PRN Hypoglycemia Simple Syrup 30 ml 04/25/21 14:13 Simple Syrup 15 Ml FEEDTUBE PRN PRN Hypoglycemia Sodium Bicarbonate 325 mg 04/25/21 14:13 04/27/21 13:00 Sodium Bicarbonate 325 Mg Tab FEEDTUBE 325 mg PRN PRN Administration For Clogged Feeding Tube Sodium Bicarbonate 1,300 mg 04/27/21 14:00 05/09/21 20:15 Sodium Bicarbonate 650 Mg Tab PO 1,300 mg TID [facility] Administration Sodium Chloride 10 ml 04/20/21 22:00 05/09/21 22:39 Sodium Chloride 0.9% 10 Ml Flush Syringe IV 10 ml BID AZIZA Administration Sodium Chloride 10 ml 04/20/21 21:31 Sodium Chloride 0.9% 10 Ml Flush Syringe IV PRN PRN LINE FLUSH
--- NOTE | 2021-05-10 09:19 | Progress Note ---
Assessment and Plan Assessment and Plan Assessment and plan: This is a 80-year-old female skilled nursing resident with GERD, hypothyroidism, hyperlipidemia, schizophrenia and dementia admitted with hypothermia, hyponatrem ia, hypokalemia, lactic acidosis, acute kidney injury, rhabdomyolysis and hyperosmolar nonketotic state. 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 -start ASA 81 mg and lipitor 40 mg -LDL is #51 -cardiac monitering R/O AF -SQ heparine -Clinically she open her eyes to stimuli , move left upper with some weakness , # Hypotension -MAP goal above 65 -on midodrin 5 mg tid # Acute hypoxic respiratory failure -s/p Bipap and ventimask -s/p bronchoscopy on 04/26 -Intubated 04/26 with 7.5 oett at 22 lips -Repeat CXR shows increased interstitial prominence of densities in bilateral lungs # Hypoalbuminemia, transaminitis -Presented with transaminitis -Trend LFTs # Severe hypernatremia (resolved), hyperchloremia (resolved), acute kidney injury likely secondary to vasomotor nephropathy, urinary retention, rhabdomyolysis (resolved) -HD initiated 04/27 -Avoid nephrotoxic medications -Trend BMP, CK -Renally dose medications -renal US WNL per read # Sepsis likely 2/2 UTI and PNA -COVID-19 PCR negative -04/26/2021 sputum culture: Roselyn nonalbicans -04/29/2021 UA showed significant pyuria. -Lumbar puncture with CSF showing 14 WBC, 324 RBC, glucose 161, protein 51. -Abx per ID: IV meropenem, renally adjusted -Exchange Luther, urine culture ordered -Trend WBC and fever curve -f/u cultures s/p HHNK, h/o hypothyroidism -Restart home levothyroxine (50 mcg q day) -s/p Insulin drip x2 -SSI, long acting insulin (adjust as needed) -TSH 6.04, T4 0.93 -Avoid hypoglycemia # Leukocytosis, thrombocytopenia (resolved), anemia -HIT (-) -Trend CBC -Transfuse to hemoglobin less than 7 -hbg 6.9 -transfuse one unit PRBC -SCD to bilateral lower extremities while in bed -BUE dopplar US negative for DVT PLAN 1- Reconsider LINCOLN when more stable 2- cardiac monitering r/o AF paroxysmal 3- ASA 81 mg and Lipitor 40 mg 4- EEG when possible 5- Avoid sedation 6- avoid Hypotension 7- Pt therapy status is unchanged with chance of improvement is possible she is with multiple medical problem , and bilateral weakness related to multi infarct R>L chance for complete recovery is impossible will follow along Subjective Date of service: 05/10/21 Principal diagnosis: Acute respiratory failure Interval history: she is interactive, move left upper limbs to stimulation not follow command , open eyes to calling her name ,move left side with significant right side weakness with stimulating right arm pt. push me away with her left arm !!! MRA brain and neck is remarkable for intracranial ICA at cavernous portion stenosis -LINCOLN attempted vital was unsatable she is off sedation blcs negative Bun/Cr#58/3.4--43/2.7--37/1.8--1.6 today EEG still pending wbs#12.8 LDL#51 Objective - Vital Sign Vital Signs - 12hr 05/09/21 05/09/21 05/09/21 21:30 21:54 22:00 Temperature Pulse Rate 85 92 H 92 H Pulse Rate [ From Monitor] Respiratory 14 19 16 Rate Blood Pressure 133/57 133/57 163/70 O2 Sat by Pulse 98 99 99 Oximetry 05/09/21 05/09/21 05/09/21 22:30 23:00 23:30 Temperature Pulse Rate 87 86 91 H Pulse Rate [ From Monitor] Respiratory 33 H 21 18 Rate Blood Pressure 152/67 145/65 155/72 O2 Sat by Pulse 99 98 98 Oximetry 05/10/21 05/10/21 05/10/21 00:00 00:30 01:00 Temperature 99.6 F Pulse Rate 93 H 88 83 Pulse Rate [ From Monitor] Respiratory 16 18 14 Rate Blood Pressure 167/73 168/71 133/58 O2 Sat by Pulse 98 98 97 Oximetry 05/10/21 05/10/21 05/10/21 01:30 02:00 02:30 Temperature Pulse Rate 96 H 88 87 Pulse Rate [ From Monitor] Respiratory 14 21 16 Rate Blood Pressure 180/84 157/65 149/69 O2 Sat by Pulse 99 98 98 Oximetry 05/10/21 05/10/21 05/10/21 03:00 03:30 03:55 Temperature Pulse Rate 86 77 88 Pulse Rate [ From Monitor] Respiratory 15 14 Rate Blood Pressure 157/69 141/60 141/60 O2 Sat by Pulse 98 97 97 Oximetry 05/10/21 05/10/21 05/10/21 04:00 04:30 05:00 Temperature 98.2 F Pulse Rate 93 H 93 H 92 H Pulse Rate [ From Monitor] Respiratory 17 16 16 Rate Blood Pressure 141/60 171/78 157/94 O2 Sat by Pulse 100 97 98 Oximetry 05/10/21 05/10/21 05/10/21 05:30 06:00 06:30 Temperature Pulse Rate 90 80 88 Pulse Rate [ From Monitor] Respiratory 15 14 15 Rate Blood Pressure 156/73 144/61 156/71 O2 Sat by Pulse 98 96 99 Oximetry 05/10/21 05/10/21 05/10/21 07:00 07:30 08:00 Temperature 99 F Pulse Rate 85 86 84 Pulse Rate [ 91 H From Monitor] Respiratory 23 14 20 Rate Blood Pressure 159/69 150/65 141/68 O2 Sat by Pulse 99 97 99 Oximetry - General Apperance Constitutional: comfortable - EENT EENT: PERRL, mucous membranes moist - Respiratory Respiratory: lungs clear, rhonchi - Cardiovascular Cardiovascular: regular rate, normal S1, normal S2 Extremities: no peripheral edema bilat, no clubbing, cyanosis - Gastrointestinal Gastrointestinal: normoactive bowel sounds - Integumentary Integumentary: normal - Neurologic Cranial nerve examination: PERRL, EOMI, facial droop Speech examination: other (intubated) Detailed motor examination: other (significant right side weakness with facial droop, ,move left upper> lower ,planter is equivical.) - Laboratory Findings CBC and BMP: 05/10/21 05:00 05/10/21 05:00 Abnormal Lab Findings: Abnormal Labs 04/20/21 04/20/21 04/20/21 17:10 17:10 17:10 WBC 17.4 H RBC 5.19 H Hgb Hct 46.8 H MCH 27 L RDW 17.2 H Plt Count Seg Neuts % (Manual) 98.0 H Lymphocytes % (Manual) 2.0 L Nucleated RBC % 1.0 H Seg Neutrophils # Man 17.1 H Lymphocytes # (Manual) 0.3 L PT ABG pH POC ABG pCO2 POC ABG pO2 ABG pO2 ABG O2 Saturation ABG Base Excess ABG Hemoglobin ABG Oxyhemoglobin ABG Potassium ABG Chloride ABG Glucose Oxyhemoglobin Carboxyhemoglobin Sodium 173 H* Potassium Chloride 132.9 H Carbon Dioxide 17 L BUN 120 H Creatinine 4.2 H Glucose 762 H* POC Glucose Hemoglobin A1c Lactic Acid Calcium Phosphorus Magnesium 3.80 H Transferrin AST 72 H ALT 63 H Alkaline Phosphatase 148 H Total Creatine Kinase 3697 H CK-MB (CK-2) 36.0 H Serum Total Protein Total Protein Albumin 2.2 L Okyms-7-Oudpvymbw Ssxwd-8-Vjccvdcbv Gamma Globulins PEP Interpretation HDL Cholesterol TSH Arterial Blood Glucose Arterial Blood Ionized Calcium Urine WBC (Auto) Urine Creatinine Urine Total Protein Crossmatch 04/20/21 04/20/21 04/20/21 17:10 17:10 18:55 WBC RBC Hgb Hct MCH RDW Plt Count Seg Neuts % (Manual) Lymphocytes % (Manual) Nucleated RBC % Seg Neutrophils # Man Lymphocytes # (Manual) PT ABG pH POC ABG pCO2 POC ABG pO2 ABG pO2 ABG O2 Saturation ABG Base Excess ABG Hemoglobin ABG Oxyhemoglobin ABG Potassium ABG Chloride ABG Glucose Oxyhemoglobin Carboxyhemoglobin Sodium Potassium Chloride Carbon Dioxide BUN Creatinine Glucose POC Glucose 574 H Hemoglobin A1c Lactic Acid 2.60 H* Calcium Phosphorus Magnesium Transferrin AST ALT Alkaline Phosphatase Total Creatine Kinase CK-MB (CK-2) Serum Total Protein Total Protein Albumin Wddtj-9-Ympwdwiqb Sgfyc-8-Jdssldvjg Gamma Globulins PEP Interpretation HDL Cholesterol TSH 6.040 H Arterial Blood Glucose Arterial Blood Ionized Calcium Urine WBC (Auto) Urine Creatinine Urine Total Protein Crossmatch 04/20/21 04/20/21 04/20/21 22:12 22:58 22:58 WBC RBC Hgb Hct MCH RDW Plt Count Seg Neuts % (Manual) Lymphocytes % (Manual) Nucleated RBC % Seg Neutrophils # Man Lymphocytes # (Manual) PT ABG pH POC ABG pCO2 POC ABG pO2 ABG pO2 ABG O2 Saturation ABG Base Excess ABG Hemoglobin ABG Oxyhemoglobin ABG Potassium ABG Chloride ABG Glucose Oxyhemoglobin Carboxyhemoglobin Sodium 172 H* Potassium 3.2 L Chloride 134.2 H Carbon Dioxide 17 L BUN 112 H Creatinine 3.8 H Glucose 803 H* POC Glucose 554 H Hemoglobin A1c Lactic Acid Calcium 8.3 L Phosphorus Magnesium 3.50 H Transferrin AST ALT Alkaline Phosphatase Total Creatine Kinase CK-MB (CK-2) Serum Total Protein Total Protein Albumin Gemoq-6-Hlibpmurv Dhlyu-7-Stpicecgh Gamma Globulins PEP Interpretation HDL Cholesterol TSH Arterial Blood Glucose Arterial Blood Ionized Calcium Urine WBC (Auto) Urine Creatinine Urine Total Protein Crossmatch 04/21/21 04/21/21 04/21/21 00:14 00:22 02:01 WBC RBC Hgb Hct MCH RDW Plt Count Seg Neuts % (Manual) Lymphocytes % (Manual) Nucleated RBC % Seg Neutrophils # Man Lymphocytes # (Manual) PT ABG pH POC ABG pCO2 POC ABG pO2 ABG pO2 ABG O2 Saturation ABG Base Excess ABG Hemoglobin ABG Oxyhemoglobin ABG Potassium ABG Chloride ABG Glucose Oxyhemoglobin Carboxyhemoglobin Sodium 176 H* 175 H* Potassium 2.9 L* 3.0 L Chloride 139.9 H 136.2 H Carbon Dioxide 17 L 19 L BUN 113 H 112 H Creatinine 3.9 H 3.6 H Glucose 729 H* 582 H* POC Glucose > 600 H Hemoglobin A1c Lactic Acid Calcium Phosphorus Magnesium Transferrin AST ALT Alkaline Phosphatase Total Creatine Kinase CK-MB (CK-2) Serum Total Protein Total Protein Albumin Isbdi-0-Ejybxbema Vcrik-2-Pdonopglc Gamma Globulins PEP Interpretation HDL Cholesterol TSH Arterial Blood Glucose Arterial Blood Ionized Calcium Urine WBC (Auto) Urine Creatinine Urine Total Protein Crossmatch 04/21/21 04/21/21 04/21/21 03:11 03:20 03:41 WBC 14.1 H RBC Hgb Hct MCH 27 L RDW 16.8 H Plt Count 114 L Seg Neuts % (Manual) 97.0 H Lymphocytes % (Manual) 3.0 L Nucleated RBC % 1.0 H Seg Neutrophils # Man 13.7 H Lymphocytes # (Manual) 0.4 L PT ABG pH POC ABG pCO2 POC ABG pO2 ABG pO2 52.3 L ABG O2 Saturation 84.5 L ABG Base Excess -2.9 L ABG Hemoglobin ABG Oxyhemoglobin ABG Potassium ABG Chloride ABG Glucose Oxyhemoglobin 82.9 L Carboxyhemoglobin Sodium Potassium Chloride Carbon Dioxide BUN Creatinine Glucose POC Glucose 404 H Hemoglobin A1c Lactic Acid Calcium Phosphorus Magnesium Transferrin AST ALT Alkaline Phosphatase Total Creatine Kinase CK-MB (CK-2) Serum Total Protein Total Protein Albumin Fntqf-8-Jdmbkusaj Ossgr-8-Qzyqeglhj Gamma Globulins PEP Interpretation HDL Cholesterol TSH Arterial Blood Glucose Arterial Blood Ionized Calcium Urine WBC (Auto) Urine Creatinine Urine Total Protein Crossmatch 04/21/21 04/21/21 04/21/21 03:41 04:24 05:45 WBC RBC Hgb Hct MCH RDW Plt Count Seg Neuts % (Manual) Lymphocytes % (Manual) Nucleated RBC % Seg Neutrophils # Man Lymphocytes # (Manual) PT ABG pH POC ABG pCO2 POC ABG pO2 ABG pO2 ABG O2 Saturation ABG Base Excess ABG Hemoglobin ABG Oxyhemoglobin ABG Potassium ABG Chloride ABG Glucose Oxyhemoglobin Carboxyhemoglobin Sodium 179 H* Potassium 2.9 L* Chloride 138.2 H Carbon Dioxide 20 L BUN 111 H Creatinine 3.7 H Glucose 465 H POC Glucose 353 H 280 H Hemoglobin A1c Lactic Acid Calcium Phosphorus Magnesium Transferrin AST 73 H ALT 61 H Alkaline Phosphatase 144 H Total Creatine Kinase CK-MB (CK-2) Serum Total Protein Total Protein Albumin 2.5 L Cytrf-6-Kmrtmldll Wilvl-3-Zqissykis Gamma Globulins PEP Interpretation HDL Cholesterol TSH Arterial Blood Glucose Arterial Blood Ionized Calcium Urine WBC (Auto) Urine Creatinine Urine Total Protein Crossmatch 04/21/21 04/21/21 04/21/21 06:47 08:01 11:11 WBC RBC Hgb Hct MCH RDW Plt Count Seg Neuts % (Manual) Lymphocytes % (Manual) Nucleated RBC % Seg Neutrophils # Man Lymphocytes # (Manual) PT ABG pH POC ABG pCO2 POC ABG pO2 ABG pO2 ABG O2 Saturation ABG Base Excess ABG Hemoglobin ABG Oxyhemoglobin ABG Potassium ABG Chloride ABG Glucose Oxyhemoglobin Carboxyhemoglobin Sodium Potassium Chloride Carbon Dioxide BUN Creatinine Glucose POC Glucose 260 H 68 L Hemoglobin A1c Lactic Acid Calcium Phosphorus Magnesium Transferrin AST ALT Alkaline Phosphatase Total Creatine Kinase CK-MB (CK-2) Serum Total Protein Total Protein Albumin Dorzf-1-Uyalhocsd Optsh-5-Npbdxnagj Gamma Globulins PEP Interpretation HDL Cholesterol TSH Arterial Blood Glucose Arterial Blood Ionized Calcium Urine WBC (Auto) Urine Creatinine 44.3 H Urine Total Protein 12 H Crossmatch 04/21/21 04/21/21 04/21/21 12:51 13:41 14:40 WBC RBC Hgb Hct MCH RDW Plt Count Seg Neuts % (Manual) Lymphocytes % (Manual) Nucleated RBC % Seg Neutrophils # Man Lymphocytes # (Manual) PT ABG pH 7.275 L POC ABG pCO2 POC ABG pO2 63.4 L ABG pO2 ABG O2 Saturation ABG Base Excess ABG Hemoglobin 8.4 L ABG Oxyhemoglobin 89.5 L ABG Potassium ABG Chloride 108.0 H ABG Glucose 404 H Oxyhemoglobin Carboxyhemoglobin Sodium Potassium Chloride Carbon Dioxide BUN Creatinine Glucose POC Glucose 146 H 186 H Hemoglobin A1c Lactic Acid Calcium Phosphorus Magnesium Transferrin AST ALT Alkaline Phosphatase Total Creatine Kinase CK-MB (CK-2) Serum Total Protein Total Protein Albumin Awgon-5-Fheluoohc Reotq-0-Uqsadtnuv Gamma Globulins PEP Interpretation HDL Cholesterol TSH Arterial Blood Glucose 404 H Arterial Blood Ionized Calcium Urine WBC (Auto) Urine Creatinine Urine Total Protein Crossmatch 04/21/21 04/21/21 04/21/21 15:47 16:25 17:57 WBC RBC Hgb Hct MCH RDW Plt Count Seg Neuts % (Manual) Lymphocytes % (Manual) Nucleated RBC % Seg Neutrophils # Man Lymphocytes # (Manual) PT ABG pH 7.486 H POC ABG pCO2 POC ABG pO2 ABG pO2 168.1 H ABG O2 Saturation 99.1 H ABG Base Excess ABG Hemoglobin 8.9 L ABG Oxyhemoglobin ABG Potassium ABG Chloride ABG Glucose Oxyhemoglobin Carboxyhemoglobin Sodium Potassium Chloride Carbon Dioxide BUN Creatinine Glucose POC Glucose 172 H 143 H Hemoglobin A1c Lactic Acid Calcium Phosphorus Magnesium Transferrin AST ALT Alkaline Phosphatase Total Creatine Kinase CK-MB (CK-2) Serum Total Protein Total Protein Albumin Pdatz-6-Gnyzkhczv Kamqu-4-Oseoyozix Gamma Globulins PEP Interpretation HDL Cholesterol TSH Arterial Blood Glucose Arterial Blood Ionized Calcium Urine WBC (Auto) Urine Creatinine Urine Total Protein Crossmatch 04/21/21 04/21/21 04/21/21 18:49 19:10 20:26 WBC RBC Hgb Hct MCH RDW Plt Count Seg Neuts % (Manual) Lymphocytes % (Manual) Nucleated RBC % Seg Neutrophils # Man Lymphocytes # (Manual) PT ABG pH POC ABG pCO2 POC ABG pO2 ABG pO2 ABG O2 Saturation ABG Base Excess ABG Hemoglobin ABG Oxyhemoglobin ABG Potassium ABG Chloride ABG Glucose Oxyhemoglobin Carboxyhemoglobin Sodium 174 H* Potassium 7.2 H* D Chloride 138.2 H Carbon Dioxide 21 L BUN 99 H Creatinine 4.0 H Glucose 157 H POC Glucose 126 H 190 H Hemoglobin A1c Lactic Acid Calcium Phosphorus Magnesium Transferrin AST 134 H ALT 71 H Alkaline Phosphatase 135 H Total Creatine Kinase 3504 H CK-MB (CK-2) Serum Total Protein Total Protein Albumin 2.2 L Vytvo-2-Tcqpkhlsf Emfgx-8-Eikvygjyl Gamma Globulins PEP Interpretation HDL Cholesterol TSH Arterial Blood Glucose Arterial Blood Ionized Calcium Urine WBC (Auto) Urine Creatinine Urine Total Protein Crossmatch 04/21/21 04/21/21 04/21/21 20:53 21:52 22:55 WBC RBC Hgb Hct MCH RDW Plt Count Seg Neuts % (Manual) Lymphocytes % (Manual) Nucleated RBC % Seg Neutrophils # Man Lymphocytes # (Manual) PT ABG pH POC ABG pCO2 POC ABG pO2 ABG pO2 ABG O2 Saturation ABG Base Excess ABG Hemoglobin ABG Oxyhemoglobin ABG Potassium ABG Chloride ABG Glucose Oxyhemoglobin Carboxyhemoglobin Sodium Potassium Chloride Carbon Dioxide BUN Creatinine Glucose POC Glucose 116 H 135 H 158 H Hemoglobin A1c Lactic Acid Calcium Phosphorus Magnesium Transferrin AST ALT Alkaline Phosphatase Total Creatine Kinase CK-MB (CK-2) Serum Total Protein Total Protein Albumin Cmqbl-0-Sxgcsvbsg Czmpi-9-Gztbjatqi Gamma Globulins PEP Interpretation HDL Cholesterol TSH Arterial Blood Glucose Arterial Blood Ionized Calcium Urine WBC (Auto) Urine Creatinine Urine Total Protein Crossmatch 04/21/21 04/22/21 04/22/21 23:00 00:01 00:39 WBC RBC Hgb Hct MCH RDW Plt Count Seg Neuts % (Manual) Lymphocytes % (Manual) Nucleated RBC % Seg Neutrophils # Man Lymphocytes # (Manual) PT ABG pH POC ABG pCO2 POC ABG pO2 ABG pO2 ABG O2 Saturation ABG Base Excess ABG Hemoglobin ABG Oxyhemoglobin ABG Potassium ABG Chloride ABG Glucose Oxyhemoglobin Carboxyhemoglobin Sodium 176 H* 171 H* Potassium Chloride 140.0 H Carbon Dioxide 20 L BUN 98 H Creatinine 3.9 H Glucose 206 H POC Glucose 182 H Hemoglobin A1c Lactic Acid Calcium Phosphorus Magnesium Transferrin AST ALT Alkaline Phosphatase Total Creatine Kinase 3240 H CK-MB (CK-2) Serum Total Protein Total Protein Albumin Abvhp-8-Pbdzfbpkx Kfntn-7-Imvfkvlcw Gamma Globulins PEP Interpretation HDL Cholesterol TSH Arterial Blood Glucose Arterial Blood Ionized Calcium Urine WBC (Auto) Urine Creatinine Urine Total Protein Crossmatch 04/22/21 04/22/21 04/22/21 00:58 01:04 04:52 WBC 11.2 H RBC Hgb Hct 44.3 H MCH 27 L RDW 17.1 H Plt Count 86 L Seg Neuts % (Manual) 86.0 H Lymphocytes % (Manual) 13.0 L Nucleated RBC % Seg Neutrophils # Man 9.6 H Lymphocytes # (Manual) PT ABG pH POC ABG pCO2 POC ABG pO2 ABG pO2 ABG O2 Saturation ABG Base Excess ABG Hemoglobin ABG Oxyhemoglobin ABG Potassium ABG Chloride ABG Glucose Oxyhemoglobin Carboxyhemoglobin Sodium Potassium Chloride Carbon Dioxide BUN Creatinine Glucose POC Glucose 176 H 143 H Hemoglobin A1c Lactic Acid Calcium Phosphorus Magnesium Transferrin AST ALT Alkaline Phosphatase Total Creatine Kinase CK-MB (CK-2) Serum Total Protein Total Protein Albumin Synkl-9-Gtzjbkptm Lgluk-7-Lqzfgrrjt Gamma Globulins PEP Interpretation HDL Cholesterol TSH Arterial Blood Glucose Arterial Blood Ionized Calcium Urine WBC (Auto) Urine Creatinine Urine Total Protein Crossmatch 04/22/21 04/22/21 04/22/21 06:07 06:09 07:18 WBC RBC Hgb Hct MCH RDW Plt Count Seg Neuts % (Manual) Lymphocytes % (Manual) Nucleated RBC % Seg Neutrophils # Man Lymphocytes # (Manual) PT ABG pH POC ABG pCO2 POC ABG pO2 ABG pO2 ABG O2 Saturation ABG Base Excess ABG Hemoglobin ABG Oxyhemoglobin ABG Potassium ABG Chloride ABG Glucose Oxyhemoglobin Carboxyhemoglobin Sodium Potassium Chloride Carbon Dioxide BUN Creatinine Glucose POC Glucose 206 H 163 H 158 H Hemoglobin A1c Lactic Acid Calcium Phosphorus Magnesium Transferrin AST ALT Alkaline Phosphatase Total Creatine Kinase CK-MB (CK-2) Serum Total Protein Total Protein Albumin Aksmi-1-Uebxosszm Ylejw-7-Tkchfudtt Gamma Globulins PEP Interpretation HDL Cholesterol TSH Arterial Blood Glucose Arterial Blood Ionized Calcium Urine WBC (Auto) Urine Creatinine Urine Total Protein Crossmatch 04/22/21 04/22/21 04/22/21 08:59 08:59 08:59 WBC RBC Hgb Hct MCH RDW Plt Count Seg Neuts % (Manual) Lymphocytes % (Manual) Nucleated RBC % Seg Neutrophils # Man Lymphocytes # (Manual) PT ABG pH POC ABG pCO2 POC ABG pO2 ABG pO2 ABG O2 Saturation ABG Base Excess ABG Hemoglobin ABG Oxyhemoglobin ABG Potassium ABG Chloride ABG Glucose Oxyhemoglobin Carboxyhemoglobin Sodium 169 H* Potassium 3.5 L Chloride 134.5 H Carbon Dioxide 20 L BUN 95 H Creatinine 3.6 H Glucose 151 H POC Glucose Hemoglobin A1c Lactic Acid Calcium Phosphorus Magnesium Transferrin AST 121 H ALT 75 H Alkaline Phosphatase 137 H Total Creatine Kinase 3105 H CK-MB (CK-2) Serum Total Protein 5.5 L Total Protein 6.0 L Albumin 2.8 L 2.1 L Scrgl-8-Fmrhchibz 0.6 H Nmwmh-4-Falqwyfld 1.0 H Gamma Globulins 0.6 L PEP Interpretation see below H HDL Cholesterol TSH Arterial Blood Glucose Arterial Blood Ionized Calcium Urine WBC (Auto) Urine Creatinine Urine Total Protein Crossmatch 04/22/21 04/22/21 04/22/21 09:44 10:24 12:20 WBC RBC Hgb Hct MCH RDW Plt Count Seg Neuts % (Manual) Lymphocytes % (Manual) Nucleated RBC % Seg Neutrophils # Man Lymphocytes # (Manual) PT ABG pH POC ABG pCO2 POC ABG pO2 ABG pO2 ABG O2 Saturation ABG Base Excess ABG Hemoglobin ABG Oxyhemoglobin ABG Potassium ABG Chloride ABG Glucose Oxyhemoglobin Carboxyhemoglobin Sodium Potassium Chloride Carbon Dioxide BUN Creatinine Glucose POC Glucose 107 H 131 H Hemoglobin A1c Lactic Acid Calcium Phosphorus Magnesium 2.80 H Transferrin AST ALT Alkaline Phosphatase Total Creatine Kinase CK-MB (CK-2) Serum Total Protein Total Protein Albumin Uewfx-0-Mgmrenqgt Tgpms-8-Ainyjncwz Gamma Globulins PEP Interpretation HDL Cholesterol TSH Arterial Blood Glucose Arterial Blood Ionized Calcium Urine WBC (Auto) Urine Creatinine Urine Total Protein Crossmatch 04/22/21 04/22/21 04/22/21 13:19 14:16 15:22 WBC RBC Hgb Hct MCH RDW Plt Count Seg Neuts % (Manual) Lymphocytes % (Manual) Nucleated RBC % Seg Neutrophils # Man Lymphocytes # (Manual) PT ABG pH POC ABG pCO2 POC ABG pO2 ABG pO2 ABG O2 Saturation ABG Base Excess ABG Hemoglobin ABG Oxyhemoglobin ABG Potassium ABG Chloride ABG Glucose Oxyhemoglobin Carboxyhemoglobin Sodium Potassium Chloride Carbon Dioxide BUN Creatinine Glucose POC Glucose 147 H 154 H 136 H Hemoglobin A1c Lactic Acid Calcium Phosphorus Magnesium Transferrin AST ALT Alkaline Phosphatase Total Creatine Kinase CK-MB (CK-2) Serum Total Protein Total Protein Albumin Wttfz-7-Bwmrlgcus Odoob-6-Nmitqekhj Gamma Globulins PEP Interpretation HDL Cholesterol TSH Arterial Blood Glucose Arterial Blood Ionized Calcium Urine WBC (Auto) Urine Creatinine Urine Total Protein Crossmatch 04/22/21 04/22/21 04/22/21 15:55 15:55 16:22 WBC RBC Hgb Hct MCH RDW Plt Count Seg Neuts % (Manual) Lymphocytes % (Manual) Nucleated RBC % Seg Neutrophils # Man Lymphocytes # (Manual) PT ABG pH POC ABG pCO2 POC ABG pO2 ABG pO2 ABG O2 Saturation ABG Base Excess ABG Hemoglobin ABG Oxyhemoglobin ABG Potassium ABG Chloride ABG Glucose Oxyhemoglobin Carboxyhemoglobin Sodium 169 H* Potassium Chloride 133.5 H Carbon Dioxide 19 L BUN 94 H Creatinine 3.8 H Glucose 150 H POC Glucose 140 H Hemoglobin A1c 17.1 H Lactic Acid Calcium Phosphorus Magnesium Transferrin AST ALT Alkaline Phosphatase Total Creatine Kinase CK-MB (CK-2) Serum Total Protein Total Protein Albumin Bseof-5-Lwcouudxz Nefbc-7-Qcoumcgee Gamma Globulins PEP Interpretation HDL Cholesterol TSH Arterial Blood Glucose Arterial Blood Ionized Calcium Urine WBC (Auto) Urine Creatinine Urine Total Protein Crossmatch 04/22/21 04/22/21 04/22/21 18:11 18:26 23:19 WBC RBC Hgb Hct MCH RDW Plt Count Seg Neuts % (Manual) Lymphocytes % (Manual) Nucleated RBC % Seg Neutrophils # Man Lymphocytes # (Manual) PT ABG pH POC ABG pCO2 POC ABG pO2 ABG pO2 ABG O2 Saturation ABG Base Excess ABG Hemoglobin ABG Oxyhemoglobin ABG Potassium ABG Chloride ABG Glucose Oxyhemoglobin Carboxyhemoglobin Sodium Potassium Chloride Carbon Dioxide BUN Creatinine Glucose POC Glucose 146 H 188 H Hemoglobin A1c Lactic Acid Calcium Phosphorus Magnesium Transferrin AST ALT Alkaline Phosphatase Total Creatine Kinase 2497 H CK-MB (CK-2) Serum Total Protein Total Protein Albumin Dippc-5-Yekfxtttx Uugvn-7-Lushgbovj Gamma Globulins PEP Interpretation HDL Cholesterol TSH Arterial Blood Glucose Arterial Blood Ionized Calcium Urine WBC (Auto) Urine Creatinine Urine Total Protein Crossmatch 04/23/21 04/23/21 04/23/21 00:27 05:23 07:50 WBC RBC Hgb Hct MCH RDW Plt Count Seg Neuts % (Manual) Lymphocytes % (Manual) Nucleated RBC % Seg Neutrophils # Man Lymphocytes # (Manual) PT ABG pH POC ABG pCO2 POC ABG pO2 ABG pO2 ABG O2 Saturation ABG Base Excess ABG Hemoglobin ABG Oxyhemoglobin ABG Potassium ABG Chloride ABG Glucose Oxyhemoglobin Carboxyhemoglobin Sodium 162 H* Potassium Chloride Carbon Dioxide BUN Creatinine Glucose POC Glucose 212 H 239 H Hemoglobin A1c Lactic Acid Calcium Phosphorus Magnesium Transferrin AST ALT Alkaline Phosphatase Total Creatine Kinase CK-MB (CK-2) Serum Total Protein Total Protein Albumin Rssgv-1-Lrwozwmnr Fnkie-1-Uasyegeem Gamma Globulins PEP Interpretation HDL Cholesterol TSH Arterial Blood Glucose Arterial Blood Ionized Calcium Urine WBC (Auto) Urine Creatinine Urine Total Protein Crossmatch 04/23/21 04/23/21 04/23/21 08:13 08:13 08:13 WBC 11.9 H RBC Hgb Hct MCH 26 L RDW 16.5 H Plt Count 72 L Seg Neuts % (Manual) 80.0 H Lymphocytes % (Manual) 5.0 L Nucleated RBC % Seg Neutrophils # Man 9.5 H Lymphocytes # (Manual) 0.6 L PT ABG pH POC ABG pCO2 POC ABG pO2 ABG pO2 ABG O2 Saturation ABG Base Excess ABG Hemoglobin ABG Oxyhemoglobin ABG Potassium ABG Chloride ABG Glucose Oxyhemoglobin Carboxyhemoglobin Sodium 164 H* Potassium Chloride 128.0 H Carbon Dioxide 21 L BUN 93 H Creatinine 3.8 H Glucose 293 H POC Glucose Hemoglobin A1c Lactic Acid Calcium Phosphorus Magnesium Transferrin AST 99 H ALT 70 H Alkaline Phosphatase 147 H Total Creatine Kinase 1803 H CK-MB (CK-2) Serum Total Protein Total Protein 6.1 L Albumin 2.0 L Nccoq-7-Agyeycdbr Nvkxl-3-Fpddlgzhh Gamma Globulins PEP Interpretation HDL Cholesterol TSH Arterial Blood Glucose Arterial Blood Ionized Calcium Urine WBC (Auto) Urine Creatinine Urine Total Protein Crossmatch 04/23/21 04/23/21 04/23/21 12:06 17:35 18:17 WBC RBC Hgb Hct MCH RDW Plt Count Seg Neuts % (Manual) Lymphocytes % (Manual) Nucleated RBC % Seg Neutrophils # Man Lymphocytes # (Manual) PT ABG pH POC ABG pCO2 POC ABG pO2 ABG pO2 ABG O2 Saturation ABG Base Excess ABG Hemoglobin ABG Oxyhemoglobin ABG Potassium ABG Chloride ABG Glucose Oxyhemoglobin Carboxyhemoglobin Sodium 160 H Potassium Chloride Carbon Dioxide BUN Creatinine Glucose POC Glucose 311 H 370 H Hemoglobin A1c Lactic Acid Calcium Phosphorus Magnesium Transferrin AST ALT Alkaline Phosphatase Total Creatine Kinase CK-MB (CK-2) Serum Total Protein Total Protein Albumin Vplzg-9-Jzlqessxz Ujiln-2-Qqsvrurii Gamma Globulins PEP Interpretation HDL Cholesterol TSH Arterial Blood Glucose Arterial Blood Ionized Calcium Urine WBC (Auto) Urine Creatinine Urine Total Protein Crossmatch 04/24/21 04/24/21 04/24/21 02:13 06:00 06:00 WBC RBC Hgb Hct MCH 27 L RDW 17.0 H Plt Count 58 L Seg Neuts % (Manual) Lymphocytes % (Manual) 2.0 L Nucleated RBC % Seg Neutrophils # Man 8.9 H Lymphocytes # (Manual) 0.2 L PT ABG pH POC ABG pCO2 POC ABG pO2 ABG pO2 ABG O2 Saturation ABG Base Excess ABG Hemoglobin ABG Oxyhemoglobin ABG Potassium ABG Chloride ABG Glucose Oxyhemoglobin Carboxyhemoglobin Sodium 160 H Potassium Chloride Carbon Dioxide BUN Creatinine Glucose POC Glucose Hemoglobin A1c Lactic Acid Calcium Phosphorus Magnesium 2.90 H Transferrin AST ALT Alkaline Phosphatase Total Creatine Kinase CK-MB (CK-2) Serum Total Protein Total Protein Albumin Nugzu-6-Cwcpbntrj Yvzlx-3-Qxkwjlxjb Gamma Globulins PEP Interpretation HDL Cholesterol TSH Arterial Blood Glucose Arterial Blood Ionized Calcium Urine WBC (Auto) Urine Creatinine Urine Total Protein Crossmatch 04/24/21 04/24/21 04/24/21 07:46 08:15 11:34 WBC RBC Hgb Hct MCH RDW Plt Count Seg Neuts % (Manual) Lymphocytes % (Manual) Nucleated RBC % Seg Neutrophils # Man Lymphocytes # (Manual) PT ABG pH POC ABG pCO2 POC ABG pO2 ABG pO2 ABG O2 Saturation ABG Base Excess ABG Hemoglobin ABG Oxyhemoglobin ABG Potassium ABG Chloride ABG Glucose Oxyhemoglobin Carboxyhemoglobin Sodium 159 H Potassium Chloride 125.6 H Carbon Dioxide 19 L BUN 94 H Creatinine 3.7 H Glucose 514 H* POC Glucose 395 H 422 H Hemoglobin A1c Lactic Acid Calcium Phosphorus Magnesium Transferrin AST ALT 61 H Alkaline Phosphatase 155 H Total Creatine Kinase CK-MB (CK-2) Serum Total Protein Total Protein 6.1 L Albumin 1.5 L Upqag-8-Edpyajrkc Pbhey-7-Kgsciajtb Gamma Globulins PEP Interpretation HDL Cholesterol TSH Arterial Blood Glucose Arterial Blood Ionized Calcium Urine WBC (Auto) Urine Creatinine Urine Total Protein Crossmatch 04/24/21 04/24/2122 13:11 14:01 15:03 WBC RBC Hgb Hct MCH RDW Plt Count Seg Neuts % (Manual) Lymphocytes % (Manual) Nucleated RBC % Seg Neutrophils # Man Lymphocytes # (Manual) PT ABG pH POC ABG pCO2 POC ABG pO2 ABG pO2 ABG O2 Saturation ABG Base Excess ABG Hemoglobin ABG Oxyhemoglobin ABG Potassium ABG Chloride ABG Glucose Oxyhemoglobin Carboxyhemoglobin Sodium Potassium Chloride Carbon Dioxide BUN Creatinine Glucose POC Glucose 384 H 423 H 418 H Hemoglobin A1c Lactic Acid Calcium Phosphorus Magnesium Transferrin AST ALT Alkaline Phosphatase Total Creatine Kinase CK-MB (CK-2) Serum Total Protein Total Protein Albumin Akhjd-1-Hkoumtrzd Vzyrn-2-Bgwnpxpki Gamma Globulins PEP Interpretation HDL Cholesterol TSH Arterial Blood Glucose Arterial Blood Ionized Calcium Urine WBC (Auto) Urine Creatinine Urine Total Protein Crossmatch 04/24/21 04/24/21 04/24/21 17:29 18:28 19:41 WBC RBC Hgb Hct MCH RDW Plt Count Seg Neuts % (Manual) Lymphocytes % (Manual) Nucleated RBC % Seg Neutrophils # Man Lymphocytes # (Manual) PT ABG pH POC ABG pCO2 POC ABG pO2 ABG pO2 ABG O2 Saturation ABG Base Excess ABG Hemoglobin ABG Oxyhemoglobin ABG Potassium ABG Chloride ABG Glucose Oxyhemoglobin Carboxyhemoglobin Sodium Potassium Chloride Carbon Dioxide BUN Creatinine Glucose POC Glucose 335 H 321 H Hemoglobin A1c Lactic Acid Calcium Phosphorus Magnesium Transferrin 112 L AST ALT Alkaline Phosphatase Total Creatine Kinase CK-MB (CK-2) Serum Total Protein Total Protein Albumin Xgbpb-1-Dzceyjcpl Cvwtv-1-Uokdqltma Gamma Globulins PEP Interpretation HDL Cholesterol TSH Arterial Blood Glucose Arterial Blood Ionized Calcium Urine WBC (Auto) Urine Creatinine Urine Total Protein Crossmatch 04/24/21 04/25/21 04/25/21 22:33 01:28 02:28 WBC RBC Hgb Hct MCH RDW Plt Count Seg Neuts % (Manual) Lymphocytes % (Manual) Nucleated RBC % Seg Neutrophils # Man Lymphocytes # (Manual) PT ABG pH POC ABG pCO2 POC ABG pO2 ABG pO2 ABG O2 Saturation ABG Base Excess ABG Hemoglobin ABG Oxyhemoglobin ABG Potassium ABG Chloride ABG Glucose Oxyhemoglobin Carboxyhemoglobin Sodium Potassium Chloride Carbon Dioxide BUN Creatinine Glucose POC Glucose 349 H 283 H 247 H Hemoglobin A1c Lactic Acid Calcium Phosphorus Magnesium Transferrin AST ALT Alkaline Phosphatase Total Creatine Kinase CK-MB (CK-2) Serum Total Protein Total Protein Albumin Mmksd-3-Fmrtygbwp Nqyyk-8-Eypcyoxzf Gamma Globulins PEP Interpretation HDL Cholesterol TSH Arterial Blood Glucose Arterial Blood Ionized Calcium Urine WBC (Auto) Urine Creatinine Urine Total Protein Crossmatch 04/25/21 04/25/21 04/25/21 03:25 04:22 05:40 WBC RBC Hgb Hct MCH RDW Plt Count Seg Neuts % (Manual) Lymphocytes % (Manual) Nucleated RBC % Seg Neutrophils # Man Lymphocytes # (Manual) PT ABG pH POC ABG pCO2 POC ABG pO2 ABG pO2 ABG O2 Saturation ABG Base Excess ABG Hemoglobin ABG Oxyhemoglobin ABG Potassium ABG Chloride ABG Glucose Oxyhemoglobin Carboxyhemoglobin Sodium Potassium Chloride Carbon Dioxide BUN Creatinine Glucose POC Glucose 196 H 207 H 204 H Hemoglobin A1c Lactic Acid Calcium Phosphorus Magnesium Transferrin AST ALT Alkaline Phosphatase Total Creatine Kinase CK-MB (CK-2) Serum Total Protein Total Protein Albumin Apmfq-3-Scxwfnjuf Kphov-3-Wyynxsoog Gamma Globulins PEP Interpretation HDL Cholesterol TSH Arterial Blood Glucose Arterial Blood Ionized Calcium Urine WBC (Auto) Urine Creatinine Urine Total Protein Crossmatch 04/25/21 04/25/21 04/25/21 05:45 06:43 07:37 WBC RBC Hgb Hct MCH 27 L RDW 17.0 H Plt Count 64 L Seg Neuts % (Manual) 84.0 H Lymphocytes % (Manual) 6.0 L Nucleated RBC % 1.0 H Seg Neutrophils # Man Lymphocytes # (Manual) 0.4 L PT ABG pH POC ABG pCO2 POC ABG pO2 ABG pO2 ABG O2 Saturation ABG Base Excess ABG Hemoglobin ABG Oxyhemoglobin ABG Potassium ABG Chloride ABG Glucose Oxyhemoglobin Carboxyhemoglobin Sodium Potassium Chloride Carbon Dioxide BUN Creatinine Glucose POC Glucose 238 H 201 H Hemoglobin A1c Lactic Acid Calcium Phosphorus Magnesium Transferrin AST ALT Alkaline Phosphatase Total Creatine Kinase CK-MB (CK-2) Serum Total Protein Total Protein Albumin Fakzg-8-Jnenhjivq Dbptv-7-Pwpnwittp Gamma Globulins PEP Interpretation HDL Cholesterol TSH Arterial Blood Glucose Arterial Blood Ionized Calcium Urine WBC (Auto) Urine Creatinine Urine Total Protein Crossmatch 04/25/21 04/25/21 04/25/21 08:11 08:11 08:41 WBC RBC Hgb Hct MCH RDW Plt Count Seg Neuts % (Manual) Lymphocytes % (Manual) Nucleated RBC % Seg Neutrophils # Man Lymphocytes # (Manual) PT ABG pH POC ABG pCO2 POC ABG pO2 ABG pO2 ABG O2 Saturation ABG Base Excess ABG Hemoglobin ABG Oxyhemoglobin ABG Potassium ABG Chloride ABG Glucose Oxyhemoglobin Carboxyhemoglobin Sodium 148 H D Potassium Chloride 115.7 H Carbon Dioxide 21 L BUN 83 H Creatinine 3.6 H Glucose 247 H POC Glucose 220 H Hemoglobin A1c Lactic Acid Calcium Phosphorus Magnesium 2.50 H Transferrin AST 63 H ALT 62 H Alkaline Phosphatase 143 H Total Creatine Kinase CK-MB (CK-2) Serum Total Protein Total Protein 5.4 L Albumin 1.4 L Pgrzc-8-Vzofznujh Tpsyo-9-Cpwxpgklh Gamma Globulins PEP Interpretation HDL Cholesterol TSH Arterial Blood Glucose Arterial Blood Ionized Calcium Urine WBC (Auto) Urine Creatinine Urine Total Protein Crossmatch 04/25/21 04/25/21 04/25/21 09:22 10:31 11:44 WBC RBC Hgb Hct MCH RDW Plt Count Seg Neuts % (Manual) Lymphocytes % (Manual) Nucleated RBC % Seg Neutrophils # Man Lymphocytes # (Manual) PT ABG pH POC ABG pCO2 POC ABG pO2 ABG pO2 ABG O2 Saturation ABG Base Excess ABG Hemoglobin ABG Oxyhemoglobin ABG Potassium ABG Chloride ABG Glucose Oxyhemoglobin Carboxyhemoglobin Sodium Potassium Chloride Carbon Dioxide BUN Creatinine Glucose POC Glucose 228 H 215 H 191 H Hemoglobin A1c Lactic Acid Calcium Phosphorus Magnesium Transferrin AST ALT Alkaline Phosphatase Total Creatine Kinase CK-MB (CK-2) Serum Total Protein Total Protein Albumin Arulq-8-Lzcuitphr Hiztg-2-Fiowpazzz Gamma Globulins PEP Interpretation HDL Cholesterol TSH Arterial Blood Glucose Arterial Blood Ionized Calcium Urine WBC (Auto) Urine Creatinine Urine Total Protein Crossmatch 04/25/21 04/25/21 04/25/21 12:23 13:48 14:11 WBC RBC Hgb Hct MCH RDW Plt Count Seg Neuts % (Manual) Lymphocytes % (Manual) Nucleated RBC % Seg Neutrophils # Man Lymphocytes # (Manual) PT ABG pH POC ABG pCO2 POC ABG pO2 ABG pO2 ABG O2 Saturation ABG Base Excess ABG Hemoglobin ABG Oxyhemoglobin ABG Potassium ABG Chloride ABG Glucose Oxyhemoglobin Carboxyhemoglobin Sodium Potassium Chloride Carbon Dioxide BUN Creatinine Glucose POC Glucose 229 H 177 H 161 H Hemoglobin A1c Lactic Acid Calcium Phosphorus Magnesium Transferrin AST ALT Alkaline Phosphatase Total Creatine Kinase CK-MB (CK-2) Serum Total Protein Total Protein Albumin Kwmil-5-Yntjfifwn Bmzqg-7-Ezyuqnerg Gamma Globulins PEP Interpretation HDL Cholesterol TSH Arterial Blood Glucose Arterial Blood Ionized Calcium Urine WBC (Auto) Urine Creatinine Urine Total Protein Crossmatch 04/25/21 04/25/21 04/26/21 18:01 21:31 01:19 WBC RBC Hgb Hct MCH RDW Plt Count Seg Neuts % (Manual) Lymphocytes % (Manual) Nucleated RBC % Seg Neutrophils # Man Lymphocytes # (Manual) PT ABG pH POC ABG pCO2 POC ABG pO2 ABG pO2 ABG O2 Saturation ABG Base Excess ABG Hemoglobin ABG Oxyhemoglobin ABG Potassium ABG Chloride ABG Glucose Oxyhemoglobin Carboxyhemoglobin Sodium Potassium Chloride Carbon Dioxide BUN Creatinine Glucose POC Glucose 264 H 371 H 356 H Hemoglobin A1c Lactic Acid Calcium Phosphorus Magnesium Transferrin AST ALT Alkaline Phosphatase Total Creatine Kinase CK-MB (CK-2) Serum Total Protein Total Protein Albumin Upmjl-9-Vidseqsyy Duuex-6-Knmorantb Gamma Globulins PEP Interpretation HDL Cholesterol TSH Arterial Blood Glucose Arterial Blood Ionized Calcium Urine WBC (Auto) Urine Creatinine Urine Total Protein Crossmatch 04/26/21 04/26/21 04/26/21 06:31 09:13 09:33 WBC RBC Hgb Hct MCH 27 L RDW 16.9 H Plt Count 58 L Seg Neuts % (Manual) 77.0 H Lymphocytes % (Manual) 4.0 L Nucleated RBC % 2.0 H Seg Neutrophils # Man Lymphocytes # (Manual) 0.3 L PT ABG pH POC ABG pCO2 POC ABG pO2 ABG pO2 ABG O2 Saturation ABG Base Excess ABG Hemoglobin ABG Oxyhemoglobin ABG Potassium ABG Chloride ABG Glucose Oxyhemoglobin Carboxyhemoglobin Sodium Potassium Chloride Carbon Dioxide BUN Creatinine Glucose POC Glucose 428 H 454 H Hemoglobin A1c Lactic Acid Calcium Phosphorus Magnesium Transferrin AST ALT Alkaline Phosphatase Total Creatine Kinase CK-MB (CK-2) Serum Total Protein Total Protein Albumin Zzzkz-9-Snyqguwuc Zkshr-2-Rvqkwmsvz Gamma Globulins PEP Interpretation HDL Cholesterol TSH Arterial Blood Glucose Arterial Blood Ionized Calcium Urine WBC (Auto) Urine Creatinine Urine Total Protein Crossmatch 04/26/21 04/26/21 04/26/21 09:33 09:33 11:00 WBC RBC Hgb Hct MCH RDW Plt Count Seg Neuts % (Manual) Lymphocytes % (Manual) Nucleated RBC % Seg Neutrophils # Man Lymphocytes # (Manual) PT ABG pH 7.281 L POC ABG pCO2 POC ABG pO2 66.4 L ABG pO2 ABG O2 Saturation ABG Base Excess ABG Hemoglobin 10.9 L ABG Oxyhemoglobin 91 L ABG Potassium ABG Chloride ABG Glucose 521 H Oxyhemoglobin Carboxyhemoglobin Sodium Potassium Chloride Carbon Dioxide 19 L BUN 98 H Creatinine 3.8 H Glucose 530 H* POC Glucose Hemoglobin A1c Lactic Acid Calcium 8.1 L Phosphorus 5.60 H D Magnesium Transferrin AST 60 H ALT 72 H Alkaline Phosphatase 168 H Total Creatine Kinase CK-MB (CK-2) Serum Total Protein Total Protein 4.6 L Albumin 1.7 L Iwwwr-0-Xhsvarbmg Wpkau-7-Lplipefzz Gamma Globulins PEP Interpretation HDL Cholesterol TSH Arterial Blood Glucose 521 H Arterial Blood Ionized Calcium Urine WBC (Auto) Urine Creatinine Urine Total Protein Crossmatch 04/26/21 04/26/21 04/26/21 12:36 15:39 16:18 WBC RBC Hgb Hct MCH RDW Plt Count Seg Neuts % (Manual) Lymphocytes % (Manual) Nucleated RBC % Seg Neutrophils # Man Lymphocytes # (Manual) PT ABG pH 7.275 L POC ABG pCO2 POC ABG pO2 63.4 L ABG pO2 ABG O2 Saturation ABG Base Excess ABG Hemoglobin 8.4 L ABG Oxyhemoglobin 89.5 L ABG Potassium ABG Chloride 108.0 H ABG Glucose 404 H Oxyhemoglobin Carboxyhemoglobin Sodium Potassium Chloride Carbon Dioxide BUN Creatinine Glucose POC Glucose 414 H 324 H Hemoglobin A1c Lactic Acid Calcium Phosphorus Magnesium Transferrin AST ALT Alkaline Phosphatase Total Creatine Kinase CK-MB (CK-2) Serum Total Protein Total Protein Albumin Vgzof-2-Joxhqkdln Lojpx-8-Hzhxnokim Gamma Globulins PEP Interpretation HDL Cholesterol TSH Arterial Blood Glucose 404 H Arterial Blood Ionized Calcium Urine WBC (Auto) Urine Creatinine Urine Total Protein Crossmatch 04/26/21 04/27/21 04/27/21 21:14 00:07 05:47 WBC RBC Hgb Hct MCH RDW Plt Count Seg Neuts % (Manual) Lymphocytes % (Manual) Nucleated RBC % Seg Neutrophils # Man Lymphocytes # (Manual) PT ABG pH POC ABG pCO2 POC ABG pO2 ABG pO2 ABG O2 Saturation ABG Base Excess ABG Hemoglobin ABG Oxyhemoglobin ABG Potassium ABG Chloride ABG Glucose Oxyhemoglobin Carboxyhemoglobin Sodium Potassium Chloride Carbon Dioxide BUN Creatinine Glucose POC Glucose 242 H 282 H 214 H Hemoglobin A1c Lactic Acid Calcium Phosphorus Magnesium Transferrin AST ALT Alkaline Phosphatase Total Creatine Kinase CK-MB (CK-2) Serum Total Protein Total Protein Albumin Ypfmu-0-Hlfcihbko Fdrad-1-Miiylfaup Gamma Globulins PEP Interpretation HDL Cholesterol TSH Arterial Blood Glucose Arterial Blood Ionized Calcium Urine WBC (Auto) Urine Creatinine Urine Total Protein Crossmatch 04/27/21 04/27/21 04/27/21 06:23 07:43 08:30 WBC RBC Hgb Hct MCH RDW Plt Count Seg Neuts % (Manual) Lymphocytes % (Manual) Nucleated RBC % Seg Neutrophils # Man Lymphocytes # (Manual) PT ABG pH 7.309 L POC ABG pCO2 POC ABG pO2 70.6 L ABG pO2 ABG O2 Saturation ABG Base Excess ABG Hemoglobin 9.16 L ABG Oxyhemoglobin 92.4 L ABG Potassium ABG Chloride ABG Glucose Oxyhemoglobin Carboxyhemoglobin Sodium Potassium Chloride 110.1 H Carbon Dioxide 15 L BUN 109 H Creatinine 4.3 H Glucose 218 H POC Glucose 187 H Hemoglobin A1c Lactic Acid Calcium Phosphorus Magnesium Transferrin AST 53 H ALT Alkaline Phosphatase 148 H Total Creatine Kinase 1000 H CK-MB (CK-2) Serum Total Protein Total Protein 5.2 L Albumin 1.2 L Ukkor-0-Jvshkocoq Nelgp-4-Qfbawkpzb Gamma Globulins PEP Interpretation HDL Cholesterol TSH Arterial Blood Glucose Arterial Blood Ionized Calcium Urine WBC (Auto) Urine Creatinine Urine Total Protein Crossmatch 04/27/21 04/27/21 04/27/21 11:54 21:08 23:28 WBC RBC Hgb Hct MCH RDW Plt Count Seg Neuts % (Manual) Lymphocytes % (Manual) Nucleated RBC % Seg Neutrophils # Man Lymphocytes # (Manual) PT ABG pH POC ABG pCO2 POC ABG pO2 ABG pO2 ABG O2 Saturation ABG Base Excess ABG Hemoglobin ABG Oxyhemoglobin ABG Potassium ABG Chloride ABG Glucose Oxyhemoglobin Carboxyhemoglobin Sodium Potassium Chloride Carbon Dioxide BUN Creatinine Glucose POC Glucose 147 H 136 H 201 H Hemoglobin A1c Lactic Acid Calcium Phosphorus Magnesium Transferrin AST ALT Alkaline Phosphatase Total Creatine Kinase CK-MB (CK-2) Serum Total Protein Total Protein Albumin Iphlc-7-Rmvolygfx Dtfqa-4-Ichewnmti Gamma Globulins PEP Interpretation HDL Cholesterol TSH Arterial Blood Glucose Arterial Blood Ionized Calcium Urine WBC (Auto) Urine Creatinine Urine Total Protein Crossmatch 04/28/21 04/28/21 04/28/21 04:00 04:00 05:00 WBC 12.6 H RBC 3.59 L Hgb 9.4 L Hct MCH 26 L RDW 16.6 H Plt Count 111 L Seg Neuts % (Manual) Lymphocytes % (Manual) 1.0 L Nucleated RBC % 4.0 H Seg Neutrophils # Man 11.6 H Lymphocytes # (Manual) 0.1 L PT 15.3 H ABG pH POC ABG pCO2 POC ABG pO2 ABG pO2 ABG O2 Saturation ABG Base Excess ABG Hemoglobin ABG Oxyhemoglobin ABG Potassium ABG Chloride ABG Glucose Oxyhemoglobin Carboxyhemoglobin Sodium 147 H Potassium 3.5 L D Chloride Carbon Dioxide BUN 79 H Creatinine 3.8 H Glucose 194 H POC Glucose Hemoglobin A1c Lactic Acid Calcium 8.1 L Phosphorus Magnesium Transferrin AST ALT Alkaline Phosphatase Total Creatine Kinase CK-MB (CK-2) Serum Total Protein Total Protein Albumin Dgjhb-7-Llsohdajt Awfjj-6-Mqetkaoik Gamma Globulins PEP Interpretation HDL Cholesterol TSH Arterial Blood Glucose Arterial Blood Ionized Calcium Urine WBC (Auto) Urine Creatinine Urine Total Protein Crossmatch 04/28/21 04/28/21 04/28/21 05:08 05:18 11:04 WBC RBC Hgb Hct MCH RDW Plt Count Seg Neuts % (Manual) Lymphocytes % (Manual) Nucleated RBC % Seg Neutrophils # Man Lymphocytes # (Manual) PT ABG pH POC ABG pCO2 POC ABG pO2 66.5 L ABG pO2 ABG O2 Saturation ABG Base Excess ABG Hemoglobin 9.7 L ABG Oxyhemoglobin 92.5 L ABG Potassium 3.2 L ABG Chloride ABG Glucose 200 H Oxyhemoglobin Carboxyhemoglobin Sodium Potassium Chloride Carbon Dioxide BUN Creatinine Glucose POC Glucose 183 H 174 H Hemoglobin A1c Lactic Acid Calcium Phosphorus Magnesium Transferrin AST ALT Alkaline Phosphatase Total Creatine Kinase CK-MB (CK-2) Serum Total Protein Total Protein Albumin Fkypq-8-Hqznztooc Awsoz-0-Sodqsydgu Gamma Globulins PEP Interpretation HDL Cholesterol TSH Arterial Blood Glucose 200 H Arterial Blood Ionized Calcium 4.5 L Urine WBC (Auto) Urine Creatinine Urine Total Protein Crossmatch 04/28/21 04/28/21 04/28/21 17:16 21:14 23:41 WBC RBC Hgb Hct MCH RDW Plt Count Seg Neuts % (Manual) Lymphocytes % (Manual) Nucleated RBC % Seg Neutrophils # Man Lymphocytes # (Manual) PT ABG pH POC ABG pCO2 POC ABG pO2 ABG pO2 ABG O2 Saturation ABG Base Excess ABG Hemoglobin ABG Oxyhemoglobin ABG Potassium ABG Chloride ABG Glucose Oxyhemoglobin Carboxyhemoglobin Sodium Potassium Chloride Carbon Dioxide BUN Creatinine Glucose POC Glucose 135 H 134 H 171 H Hemoglobin A1c Lactic Acid Calcium Phosphorus Magnesium Transferrin AST ALT Alkaline Phosphatase Total Creatine Kinase CK-MB (CK-2) Serum Total Protein Total Protein Albumin Qfzrz-1-Mxgnezzik Vpumw-5-Xjwordlci Gamma Globulins PEP Interpretation HDL Cholesterol TSH Arterial Blood Glucose Arterial Blood Ionized Calcium Urine WBC (Auto) Urine Creatinine Urine Total Protein Crossmatch 04/29/21 04/29/21 04/29/21 01:16 04:00 04:00 WBC 13.3 H RBC 3.12 L Hgb 8.3 L Hct 26.2 L MCH 27 L RDW 16.3 H Plt Count 132 L Seg Neuts % (Manual) Lymphocytes % (Manual) Nucleated RBC % Seg Neutrophils # Man Lymphocytes # (Manual) PT ABG pH POC ABG pCO2 POC ABG pO2 ABG pO2 ABG O2 Saturation ABG Base Excess ABG Hemoglobin ABG Oxyhemoglobin ABG Potassium ABG Chloride ABG Glucose Oxyhemoglobin Carboxyhemoglobin Sodium Potassium Chloride Carbon Dioxide BUN 63 H Creatinine 3.4 H Glucose 249 H POC Glucose 236 H Hemoglobin A1c Lactic Acid Calcium 8.2 L Phosphorus Magnesium Transferrin AST 61 H ALT 71 H Alkaline Phosphatase 170 H Total Creatine Kinase CK-MB (CK-2) Serum Total Protein Total Protein 5.1 L Albumin 1.6 L Wvghh-9-Xfgnpaagl Msszb-9-Wdnopmvnl Gamma Globulins PEP Interpretation HDL Cholesterol TSH Arterial Blood Glucose Arterial Blood Ionized Calcium Urine WBC (Auto) Urine Creatinine Urine Total Protein Crossmatch 04/29/21 04/29/21 04/29/21 11:35 13:30 16:01 WBC RBC Hgb Hct MCH RDW Plt Count Seg Neuts % (Manual) Lymphocytes % (Manual) Nucleated RBC % Seg Neutrophils # Man Lymphocytes # (Manual) PT ABG pH POC ABG pCO2 POC ABG pO2 ABG pO2 ABG O2 Saturation ABG Base Excess ABG Hemoglobin ABG Oxyhemoglobin ABG Potassium ABG Chloride ABG Glucose Oxyhemoglobin Carboxyhemoglobin Sodium Potassium Chloride Carbon Dioxide BUN Creatinine Glucose POC Glucose 320 H 297 H Hemoglobin A1c Lactic Acid Calcium Phosphorus Magnesium Transferrin AST ALT Alkaline Phosphatase Total Creatine Kinase CK-MB (CK-2) Serum Total Protein Total Protein Albumin Akgta-5-Izgktixfe Lhezp-3-Qqilxfbww Gamma Globulins PEP Interpretation HDL Cholesterol TSH Arterial Blood Glucose Arterial Blood Ionized Calcium Urine WBC (Auto) > 182.0 H Urine Creatinine Urine Total Protein Crossmatch 04/29/21 04/29/21 04/30/21 21:58 23:35 04:00 WBC 11.4 H RBC 3.27 L Hgb 8.7 L Hct 27.5 L MCH 27 L RDW 16.6 H Plt Count Seg Neuts % (Manual) Lymphocytes % (Manual) Nucleated RBC % Seg Neutrophils # Man Lymphocytes # (Manual) PT ABG pH POC ABG pCO2 POC ABG pO2 ABG pO2 ABG O2 Saturation ABG Base Excess ABG Hemoglobin ABG Oxyhemoglobin ABG Potassium ABG Chloride ABG Glucose Oxyhemoglobin Carboxyhemoglobin Sodium Potassium Chloride Carbon Dioxide BUN Creatinine Glucose POC Glucose 260 H 254 H Hemoglobin A1c Lactic Acid Calcium Phosphorus Magnesium Transferrin AST ALT Alkaline Phosphatase Total Creatine Kinase CK-MB (CK-2) Serum Total Protein Total Protein Albumin Xdicq-0-Fcvjwewbl Dmahb-1-Nvyzejnfe Gamma Globulins PEP Interpretation HDL Cholesterol TSH Arterial Blood Glucose Arterial Blood Ionized Calcium Urine WBC (Auto) Urine Creatinine Urine Total Protein Crossmatch 04/30/21 04/30/21 04/30/21 04:00 05:17 05:31 WBC RBC Hgb Hct MCH RDW Plt Count Seg Neuts % (Manual) Lymphocytes % (Manual) Nucleated RBC % Seg Neutrophils # Man Lymphocytes # (Manual) PT ABG pH 7.452 H POC ABG pCO2 30.5 L POC ABG pO2 54.5 L ABG pO2 ABG O2 Saturation ABG Base Excess ABG Hemoglobin 10.1 L ABG Oxyhemoglobin 87.4 L ABG Potassium 2.9 L ABG Chloride ABG Glucose 305 H Oxyhemoglobin Carboxyhemoglobin Sodium Potassium 3.1 L Chloride Carbon Dioxide BUN 79 H Creatinine 3.9 H Glucose 275 H POC Glucose 267 H Hemoglobin A1c Lactic Acid Calcium Phosphorus 5.60 H D Magnesium Transferrin AST ALT Alkaline Phosphatase Total Creatine Kinase CK-MB (CK-2) Serum Total Protein Total Protein Albumin Gjebl-0-Pdgudzmzq Quwmk-8-Zkjxibaud Gamma Globulins PEP Interpretation HDL Cholesterol TSH Arterial Blood Glucose 305 H Arterial Blood Ionized Calcium Urine WBC (Auto) Urine Creatinine Urine Total Protein Crossmatch 04/30/21 04/30/21 04/30/21 12:31 17:50 22:24 WBC RBC Hgb Hct MCH RDW Plt Count Seg Neuts % (Manual) Lymphocytes % (Manual) Nucleated RBC % Seg Neutrophils # Man Lymphocytes # (Manual) PT ABG pH POC ABG pCO2 POC ABG pO2 ABG pO2 ABG O2 Saturation ABG Base Excess ABG Hemoglobin ABG Oxyhemoglobin ABG Potassium ABG Chloride ABG Glucose Oxyhemoglobin Carboxyhemoglobin Sodium Potassium Chloride Carbon Dioxide BUN Creatinine Glucose POC Glucose 259 H 161 H 146 H Hemoglobin A1c Lactic Acid Calcium Phosphorus Magnesium Transferrin AST ALT Alkaline Phosphatase Total Creatine Kinase CK-MB (CK-2) Serum Total Protein Total Protein Albumin Qruqf-6-Hppvhnofl Ofzne-3-Sjzfyzttg Gamma Globulins PEP Interpretation HDL Cholesterol TSH Arterial Blood Glucose Arterial Blood Ionized Calcium Urine WBC (Auto) Urine Creatinine Urine Total Protein Crossmatch 05/01/21 05/01/21 05/01/21 00:09 03:30 04:00 WBC 12.0 H RBC 3.08 L Hgb 8.1 L Hct 25.6 L MCH 26 L RDW 16.3 H Plt Count Seg Neuts % (Manual) Lymphocytes % (Manual) Nucleated RBC % Seg Neutrophils # Man Lymphocytes # (Manual) PT ABG pH 7.493 H POC ABG pCO2 POC ABG pO2 ABG pO2 ABG O2 Saturation ABG Base Excess ABG Hemoglobin 9.3 L ABG Oxyhemoglobin ABG Potassium ABG Chloride ABG Glucose 167 H Oxyhemoglobin Carboxyhemoglobin 0.4 L Sodium Potassium Chloride Carbon Dioxide BUN Creatinine Glucose POC Glucose 149 H Hemoglobin A1c Lactic Acid Calcium Phosphorus Magnesium Transferrin AST ALT Alkaline Phosphatase Total Creatine Kinase CK-MB (CK-2) Serum Total Protein Total Protein Albumin Majnn-7-Eywmlssqk Ymrqq-7-Hyfmukvgp Gamma Globulins PEP Interpretation HDL Cholesterol TSH Arterial Blood Glucose 167 H Arterial Blood Ionized Calcium Urine WBC (Auto) Urine Creatinine Urine Total Protein Crossmatch 05/01/21 05/01/21 05/01/21 04:00 05:48 11:49 WBC RBC Hgb Hct MCH RDW Plt Count Seg Neuts % (Manual) Lymphocytes % (Manual) Nucleated RBC % Seg Neutrophils # Man Lymphocytes # (Manual) PT ABG pH POC ABG pCO2 POC ABG pO2 ABG pO2 ABG O2 Saturation ABG Base Excess ABG Hemoglobin ABG Oxyhemoglobin ABG Potassium ABG Chloride ABG Glucose Oxyhemoglobin Carboxyhemoglobin Sodium Potassium 3.5 L Chloride Carbon Dioxide BUN 62 H Creatinine 3.3 H Glucose 179 H POC Glucose 197 H 167 H Hemoglobin A1c Lactic Acid Calcium 8.3 L Phosphorus Magnesium Transferrin AST ALT Alkaline Phosphatase Total Creatine Kinase CK-MB (CK-2) Serum Total Protein Total Protein Albumin Dlkgc-3-Dxmyhoyjs Sztci-7-Oqbscpkha Gamma Globulins PEP Interpretation HDL Cholesterol TSH Arterial Blood Glucose Arterial Blood Ionized Calcium Urine WBC (Auto) Urine Creatinine Urine Total Protein Crossmatch 05/01/21 05/01/21 05/02/21 16:24 23:25 04:00 WBC 14.2 H RBC 2.61 L Hgb 6.9 L Hct 22.1 L MCH 27 L RDW 16.1 H Plt Count Seg Neuts % (Manual) Lymphocytes % (Manual) Nucleated RBC % Seg Neutrophils # Man Lymphocytes # (Manual) PT ABG pH POC ABG pCO2 POC ABG pO2 ABG pO2 ABG O2 Saturation ABG Base Excess ABG Hemoglobin ABG Oxyhemoglobin ABG Potassium ABG Chloride ABG Glucose Oxyhemoglobin Carboxyhemoglobin Sodium Potassium Chloride Carbon Dioxide BUN Creatinine Glucose POC Glucose 157 H 147 H Hemoglobin A1c Lactic Acid Calcium Phosphorus Magnesium Transferrin AST ALT Alkaline Phosphatase Total Creatine Kinase CK-MB (CK-2) Serum Total Protein Total Protein Albumin Bgwvn-8-Gtyweyunv Tldiw-6-Ojlvcwwzx Gamma Globulins PEP Interpretation HDL Cholesterol TSH Arterial Blood Glucose Arterial Blood Ionized Calcium Urine WBC (Auto) Urine Creatinine Urine Total Protein Crossmatch 05/02/21 05/02/21 05/02/21 04:00 04:34 05:23 WBC RBC Hgb Hct MCH RDW Plt Count Seg Neuts % (Manual) Lymphocytes % (Manual) Nucleated RBC % Seg Neutrophils # Man Lymphocytes # (Manual) PT ABG pH 7.487 H POC ABG pCO2 POC ABG pO2 78.6 L ABG pO2 ABG O2 Saturation ABG Base Excess ABG Hemoglobin 11.5 L ABG Oxyhemoglobin ABG Potassium ABG Chloride ABG Glucose 122 H Oxyhemoglobin Carboxyhemoglobin Sodium Potassium Chloride Carbon Dioxide BUN 49 H Creatinine 2.8 H Glucose 117 H POC Glucose 119 H Hemoglobin A1c Lactic Acid Calcium Phosphorus Magnesium Transferrin AST ALT Alkaline Phosphatase Total Creatine Kinase CK-MB (CK-2) Serum Total Protein Total Protein Albumin Czojz-0-Sewhvozkr Eofow-5-Yrbbmzmxe Gamma Globulins PEP Interpretation HDL Cholesterol TSH Arterial Blood Glucose 122 H Arterial Blood Ionized Calcium Urine WBC (Auto) Urine Creatinine Urine Total Protein Crossmatch 05/02/21 05/02/21 05/02/21 12:00 12:04 17:29 WBC RBC Hgb Hct MCH RDW Plt Count Seg Neuts % (Manual) Lymphocytes % (Manual) Nucleated RBC % Seg Neutrophils # Man Lymphocytes # (Manual) PT ABG pH POC ABG pCO2 POC ABG pO2 ABG pO2 ABG O2 Saturation ABG Base Excess ABG Hemoglobin ABG Oxyhemoglobin ABG Potassium ABG Chloride ABG Glucose Oxyhemoglobin Carboxyhemoglobin Sodium Potassium Chloride Carbon Dioxide BUN Creatinine Glucose POC Glucose 115 H 120 H Hemoglobin A1c Lactic Acid Calcium Phosphorus Magnesium Transferrin AST ALT Alkaline Phosphatase Total Creatine Kinase CK-MB (CK-2) Serum Total Protein Total Protein Albumin Rwtcf-4-Qnxfydahd Hlpxp-3-Fdplffefu Gamma Globulins PEP Interpretation HDL Cholesterol TSH Arterial Blood Glucose Arterial Blood Ionized Calcium Urine WBC (Auto) Urine Creatinine Urine Total Protein Crossmatch See Detail 05/02/21 05/03/21 05/03/21 23:36 04:00 04:00 WBC 13.9 H RBC 3.22 L Hgb 8.7 L Hct 27.4 L MCH 27 L RDW 15.8 H Plt Count Seg Neuts % (Manual) Lymphocytes % (Manual) Nucleated RBC % Seg Neutrophils # Man Lymphocytes # (Manual) PT ABG pH POC ABG pCO2 POC ABG pO2 ABG pO2 ABG O2 Saturation ABG Base Excess ABG Hemoglobin ABG Oxyhemoglobin ABG Potassium ABG Chloride ABG Glucose Oxyhemoglobin Carboxyhemoglobin Sodium 146 H Potassium 3.5 L Chloride 107.5 H Carbon Dioxide BUN 40 H Creatinine 2.5 H Glucose 104 H POC Glucose 130 H Hemoglobin A1c Lactic Acid Calcium Phosphorus Magnesium Transferrin AST 53 H ALT Alkaline Phosphatase 149 H Total Creatine Kinase CK-MB (CK-2) Serum Total Protein Total Protein 5.2 L Albumin 1.5 L Fijan-6-Kwwkpvlor Qriei-9-Msxgxwzfr Gamma Globulins PEP Interpretation HDL Cholesterol TSH Arterial Blood Glucose Arterial Blood Ionized Calcium Urine WBC (Auto) Urine Creatinine Urine Total Protein Crossmatch 05/03/21 05/04/21 05/04/21 17:26 01:24 04:48 WBC 14.3 H RBC 3.14 L Hgb 8.5 L Hct 26.3 L MCH 27 L RDW 15.8 H Plt Count Seg Neuts % (Manual) Lymphocytes % (Manual) Nucleated RBC % Seg Neutrophils # Man Lymphocytes # (Manual) PT ABG pH POC ABG pCO2 POC ABG pO2 ABG pO2 ABG O2 Saturation ABG Base Excess ABG Hemoglobin ABG Oxyhemoglobin ABG Potassium ABG Chloride ABG Glucose Oxyhemoglobin Carboxyhemoglobin Sodium Potassium Chloride Carbon Dioxide BUN Creatinine Glucose POC Glucose 123 H 146 H Hemoglobin A1c Lactic Acid Calcium Phosphorus Magnesium Transferrin AST ALT Alkaline Phosphatase Total Creatine Kinase CK-MB (CK-2) Serum Total Protein Total Protein Albumin Fpfgf-0-Avovakpqv Jmspv-9-Yzbnkrkwl Gamma Globulins PEP Interpretation HDL Cholesterol TSH Arterial Blood Glucose Arterial Blood Ionized Calcium Urine WBC (Auto) Urine Creatinine Urine Total Protein Crossmatch 05/04/21 05/04/21 05/04/21 04:48 05:15 11:24 WBC RBC Hgb Hct MCH RDW Plt Count Seg Neuts % (Manual) Lymphocytes % (Manual) Nucleated RBC % Seg Neutrophils # Man Lymphocytes # (Manual) PT ABG pH POC ABG pCO2 POC ABG pO2 ABG pO2 ABG O2 Saturation ABG Base Excess ABG Hemoglobin ABG Oxyhemoglobin ABG Potassium ABG Chloride ABG Glucose Oxyhemoglobin Carboxyhemoglobin Sodium Potassium 3.5 L Chloride Carbon Dioxide BUN 58 H Creatinine 3.4 H Glucose 168 H POC Glucose 162 H 145 H Hemoglobin A1c Lactic Acid Calcium Phosphorus 5.30 H Magnesium Transferrin AST ALT Alkaline Phosphatase Total Creatine Kinase CK-MB (CK-2) Serum Total Protein Total Protein Albumin Qsxbd-3-Kibekrgnv Cfaya-9-Wantminlp Gamma Globulins PEP Interpretation HDL Cholesterol 24 L TSH Arterial Blood Glucose Arterial Blood Ionized Calcium Urine WBC (Auto) Urine Creatinine Urine Total Protein Crossmatch 05/04/21 05/04/21 05/05/21 16:01 23:32 04:00 WBC RBC Hgb Hct MCH RDW Plt Count Seg Neuts % (Manual) Lymphocytes % (Manual) Nucleated RBC % Seg Neutrophils # Man Lymphocytes # (Manual) PT ABG pH POC ABG pCO2 POC ABG pO2 ABG pO2 ABG O2 Saturation ABG Base Excess ABG Hemoglobin ABG Oxyhemoglobin ABG Potassium ABG Chloride ABG Glucose Oxyhemoglobin Carboxyhemoglobin Sodium Potassium 3.4 L Chloride Carbon Dioxide BUN 43 H Creatinine 2.7 H Glucose 124 H POC Glucose 148 H 134 H Hemoglobin A1c Lactic Acid Calcium 8.2 L Phosphorus Magnesium Transferrin AST ALT Alkaline Phosphatase Total Creatine Kinase CK-MB (CK-2) Serum Total Protein Total Protein Albumin Wvhia-1-Hkyacfhxg Zjato-8-Xsietviqi Gamma Globulins PEP Interpretation HDL Cholesterol TSH Arterial Blood Glucose Arterial Blood Ionized Calcium Urine WBC (Auto) Urine Creatinine Urine Total Protein Crossmatch 05/05/21 05/06/21 05/06/21 05:14 00:01 04:00 WBC RBC Hgb Hct MCH RDW Plt Count Seg Neuts % (Manual) Lymphocytes % (Manual) Nucleated RBC % Seg Neutrophils # Man Lymphocytes # (Manual) PT ABG pH POC ABG pCO2 POC ABG pO2 ABG pO2 ABG O2 Saturation ABG Base Excess ABG Hemoglobin ABG Oxyhemoglobin ABG Potassium ABG Chloride ABG Glucose Oxyhemoglobin Carboxyhemoglobin Sodium Potassium 3.2 L Chloride Carbon Dioxide BUN 56 H Creatinine 3.0 H Glucose 110 H POC Glucose 120 H 120 H Hemoglobin A1c Lactic Acid Calcium 7.8 L Phosphorus 4.60 H Magnesium Transferrin AST ALT Alkaline Phosphatase Total Creatine Kinase CK-MB (CK-2) Serum Total Protein Total Protein Albumin Wuxpq-5-Lgrtsiosb Jtvhv-7-Xuormwocx Gamma Globulins PEP Interpretation HDL Cholesterol TSH Arterial Blood Glucose Arterial Blood Ionized Calcium Urine WBC (Auto) Urine Creatinine Urine Total Protein Crossmatch 05/06/21 05/06/21 05/06/21 04:27 05:15 17:37 WBC RBC 3.03 L Hgb 8.3 L Hct 25.4 L MCH 27 L RDW Plt Count Seg Neuts % (Manual) Lymphocytes % (Manual) Nucleated RBC % Seg Neutrophils # Man Lymphocytes # (Manual) PT ABG pH POC ABG pCO2 POC ABG pO2 ABG pO2 ABG O2 Saturation ABG Base Excess ABG Hemoglobin ABG Oxyhemoglobin ABG Potassium ABG Chloride ABG Glucose Oxyhemoglobin Carboxyhemoglobin Sodium Potassium Chloride Carbon Dioxide BUN Creatinine Glucose POC Glucose 137 H 132 H Hemoglobin A1c Lactic Acid Calcium Phosphorus Magnesium Transferrin AST ALT Alkaline Phosphatase Total Creatine Kinase CK-MB (CK-2) Serum Total Protein Total Protein Albumin Gufqg-4-Wsiafkyvi Utalq-9-Qwnlyttmi Gamma Globulins PEP Interpretation HDL Cholesterol TSH Arterial Blood Glucose Arterial Blood Ionized Calcium Urine WBC (Auto) Urine Creatinine Urine Total Protein Crossmatch 05/07/21 05/07/21 05/07/21 00:30 04:23 04:23 WBC RBC Hgb Hct MCH RDW Plt Count Seg Neuts % (Manual) Lymphocytes % (Manual) Nucleated RBC % Seg Neutrophils # Man Lymphocytes # (Manual) PT ABG pH POC ABG pCO2 POC ABG pO2 ABG pO2 ABG O2 Saturation ABG Base Excess ABG Hemoglobin ABG Oxyhemoglobin ABG Potassium ABG Chloride ABG Glucose Oxyhemoglobin Carboxyhemoglobin Sodium Potassium 3.4 L Chloride 107.1 H Carbon Dioxide BUN 28 H Creatinine 1.9 H Glucose 165 H POC Glucose 121 H Hemoglobin A1c Lactic Acid Calcium 8.2 L Phosphorus Magnesium 1.60 L Transferrin AST ALT Alkaline Phosphatase Total Creatine Kinase CK-MB (CK-2) Serum Total Protein Total Protein Albumin Cjelo-9-Jjumfwrfm Rjquj-7-Gagpvfpuq Gamma Globulins PEP Interpretation HDL Cholesterol TSH Arterial Blood Glucose Arterial Blood Ionized Calcium Urine WBC (Auto) Urine Creatinine Urine Total Protein Crossmatch 05/07/21 05/07/21 05/07/21 05:30 11:37 17:28 WBC RBC Hgb Hct MCH RDW Plt Count Seg Neuts % (Manual) Lymphocytes % (Manual) Nucleated RBC % Seg Neutrophils # Man Lymphocytes # (Manual) PT ABG pH POC ABG pCO2 POC ABG pO2 ABG pO2 ABG O2 Saturation ABG Base Excess ABG Hemoglobin ABG Oxyhemoglobin ABG Potassium ABG Chloride ABG Glucose Oxyhemoglobin Carboxyhemoglobin Sodium Potassium Chloride Carbon Dioxide BUN Creatinine Glucose POC Glucose 205 H 148 H 170 H Hemoglobin A1c Lactic Acid Calcium Phosphorus Magnesium Transferrin AST ALT Alkaline Phosphatase Total Creatine Kinase CK-MB (CK-2) Serum Total Protein Total Protein Albumin Bvlix-9-Vfwgxcojv Uulsx-2-Pprrmvugk Gamma Globulins PEP Interpretation HDL Cholesterol TSH Arterial Blood Glucose Arterial Blood Ionized Calcium Urine WBC (Auto) Urine Creatinine Urine Total Protein Crossmatch 05/07/21 05/08/21 05/08/21 23:57 05:12 05:12 WBC 11.2 H RBC 3.01 L Hgb 8.2 L Hct 25.5 L MCH 27 L RDW 15.4 H Plt Count Seg Neuts % (Manual) Lymphocytes % (Manual) Nucleated RBC % Seg Neutrophils # Man Lymphocytes # (Manual) PT ABG pH POC ABG pCO2 POC ABG pO2 ABG pO2 ABG O2 Saturation ABG Base Excess ABG Hemoglobin ABG Oxyhemoglobin ABG Potassium ABG Chloride ABG Glucose Oxyhemoglobin Carboxyhemoglobin Sodium Potassium 3.4 L Chloride Carbon Dioxide BUN 37 H Creatinine 2.1 H Glucose 160 H POC Glucose 172 H Hemoglobin A1c Lactic Acid Calcium 8.3 L Phosphorus Magnesium Transferrin AST ALT Alkaline Phosphatase Total Creatine Kinase CK-MB (CK-2) Serum Total Protein Total Protein Albumin Jxgko-1-Abfejmwsz Nnllg-9-Jlwrvuivm Gamma Globulins PEP Interpretation HDL Cholesterol TSH Arterial Blood Glucose Arterial Blood Ionized Calcium Urine WBC (Auto) Urine Creatinine Urine Total Protein Crossmatch 05/08/21 05/08/21 05/08/21 05:20 09:34 11:35 WBC RBC Hgb Hct MCH RDW Plt Count Seg Neuts % (Manual) Lymphocytes % (Manual) Nucleated RBC % Seg Neutrophils # Man Lymphocytes # (Manual) PT ABG pH POC ABG pCO2 POC ABG pO2 ABG pO2 ABG O2 Saturation ABG Base Excess ABG Hemoglobin ABG Oxyhemoglobin ABG Potassium ABG Chloride ABG Glucose Oxyhemoglobin Carboxyhemoglobin Sodium Potassium Chloride Carbon Dioxide BUN Creatinine Glucose POC Glucose 148 H 208 H Hemoglobin A1c Lactic Acid Calcium Phosphorus Magnesium Transferrin AST ALT Alkaline Phosphatase Total Creatine Kinase CK-MB (CK-2) Serum Total Protein Total Protein Albumin Qcaew-2-Ueppuwifh Xcdqz-5-Enyuexsxf Gamma Globulins PEP Interpretation HDL Cholesterol TSH Arterial Blood Glucose Arterial Blood Ionized Calcium Urine WBC (Auto) Urine Creatinine 56.0 H Urine Total Protein Crossmatch 05/08/21 05/08/21 05/09/21 16:55 23:57 05:30 WBC 12.8 H RBC 2.98 L Hgb 8.1 L Hct 25.4 L MCH 27 L RDW 15.4 H Plt Count Seg Neuts % (Manual) Lymphocytes % (Manual) Nucleated RBC % Seg Neutrophils # Man Lymphocytes # (Manual) PT ABG pH POC ABG pCO2 POC ABG pO2 ABG pO2 ABG O2 Saturation ABG Base Excess ABG Hemoglobin ABG Oxyhemoglobin ABG Potassium ABG Chloride ABG Glucose Oxyhemoglobin Carboxyhemoglobin Sodium Potassium Chloride Carbon Dioxide BUN Creatinine Glucose POC Glucose 179 H 183 H Hemoglobin A1c Lactic Acid Calcium Phosphorus Magnesium Transferrin AST ALT Alkaline Phosphatase Total Creatine Kinase CK-MB (CK-2) Serum Total Protein Total Protein Albumin Nxylw-4-Tjjzkexez Prmrj-6-Qxljtvngp Gamma Globulins PEP Interpretation HDL Cholesterol TSH Arterial Blood Glucose Arterial Blood Ionized Calcium Urine WBC (Auto) Urine Creatinine Urine Total Protein Crossmatch 05/09/21 05/09/21 05/09/21 05:30 05:31 11:24 WBC RBC Hgb Hct MCH RDW Plt Count Seg Neuts % (Manual) Lymphocytes % (Manual) Nucleated RBC % Seg Neutrophils # Man Lymphocytes # (Manual) PT ABG pH POC ABG pCO2 POC ABG pO2 ABG pO2 ABG O2 Saturation ABG Base Excess ABG Hemoglobin ABG Oxyhemoglobin ABG Potassium ABG Chloride ABG Glucose Oxyhemoglobin Carboxyhemoglobin Sodium 150 H Potassium 3.2 L Chloride 110.2 H Carbon Dioxide BUN 37 H Creatinine 1.8 H Glucose 191 H POC Glucose 120 H 197 H Hemoglobin A1c Lactic Acid Calcium Phosphorus Magnesium Transferrin AST ALT Alkaline Phosphatase Total Creatine Kinase CK-MB (CK-2) Serum Total Protein Total Protein Albumin Burjg-6-Hoymstipy Nhpdf-8-Rzplhltse Gamma Globulins PEP Interpretation HDL Cholesterol TSH Arterial Blood Glucose Arterial Blood Ionized Calcium Urine WBC (Auto) Urine Creatinine Urine Total Protein Crossmatch 05/09/21 05/09/21 05/10/21 15:49 23:42 05:00 WBC RBC 2.99 L Hgb 8.2 L Hct 25.6 L MCH RDW 15.4 H Plt Count 456 H Seg Neuts % (Manual) Lymphocytes % (Manual) Nucleated RBC % Seg Neutrophils # Man Lymphocytes # (Manual) PT ABG pH POC ABG pCO2 POC ABG pO2 ABG pO2 ABG O2 Saturation ABG Base Excess ABG Hemoglobin ABG Oxyhemoglobin ABG Potassium ABG Chloride ABG Glucose Oxyhemoglobin Carboxyhemoglobin Sodium Potassium Chloride Carbon Dioxide BUN Creatinine Glucose POC Glucose 318 H 152 H Hemoglobin A1c Lactic Acid Calcium Phosphorus Magnesium Transferrin AST ALT Alkaline Phosphatase Total Creatine Kinase CK-MB (CK-2) Serum Total Protein Total Protein Albumin Bssah-2-Aekntxfbj Qpwoc-1-Smwhphejq Gamma Globulins PEP Interpretation HDL Cholesterol TSH Arterial Blood Glucose Arterial Blood Ionized Calcium Urine WBC (Auto) Urine Creatinine Urine Total Protein Crossmatch 05/10/21 05/10/21 05:00 05:30 WBC RBC Hgb Hct MCH RDW Plt Count Seg Neuts % (Manual) Lymphocytes % (Manual) Nucleated RBC % Seg Neutrophils # Man Lymphocytes # (Manual) PT ABG pH POC ABG pCO2 POC ABG pO2 ABG pO2 ABG O2 Saturation ABG Base Excess ABG Hemoglobin ABG Oxyhemoglobin ABG Potassium ABG Chloride ABG Glucose Oxyhemoglobin Carboxyhemoglobin Sodium 148 H Potassium 3.4 L Chloride 110.5 H Carbon Dioxide BUN 36 H Creatinine 1.6 H Glucose 185 H POC Glucose 168 H Hemoglobin A1c Lactic Acid Calcium Phosphorus Magnesium Transferrin AST ALT Alkaline Phosphatase Total Creatine Kinase CK-MB (CK-2) Serum Total Protein Total Protein Albumin Urxgb-3-Tllciekyg Hgyke-1-Uiqyzdgwg Gamma Globulins PEP Interpretation HDL Cholesterol TSH Arterial Blood Glucose Arterial Blood Ionized Calcium Urine WBC (Auto) Urine Creatinine Urine Total Protein Crossmatch
[2021-05-10] MEDS: hydrALAZINE 20 MG/1 ML INJ IV PRN (09:28)
[2021-05-10] MEDS: SENNOSIDES/DOCUSATE SODIUM 8.6/50 MG TAB FEEDTUBE SCH ×2 (09:28→21:19)
[2021-05-10] MEDS: ASPIRIN 81 MG TAB CHEW FEEDTUBE SCH (09:28)
[2021-05-10] MEDS: FAMOTIDINE 10 MG TAB FEEDTUBE SCH ×2 (09:28→21:19)
[2021-05-10] MEDS: MIDODRINE 5 MG TAB PO SCH ×2 (09:29→12:41)
[2021-05-10] MEDS: LORazepam 2 MG/ML VIAL IV PRN (10:46)
--- NOTE | 2021-05-10 13:47 | Progress Note ---
Assessment and Plan Cultures: 04/21/2021 blood culture: No growth 04/21/2021 COVID-19 PCR: Negative 04/26/2021 sputum culture: Roselyn nonalbicans 04/29/2021 tracheal aspirate culture: Moderate growth of usual respiratory stanley 04/29/2021 blood culture: No growth 05/02/2021 urine culture: yeast A/P: 80-year-old female who is a [facility], with hypothyroidism, GERD, hyperlipidemia, schizophrenia, dementia was admitted on 04/20/2021 after being found unresponsive by the staff: #Septic shock: Likely from pneumonia and UTI. Completed meropenem. 04/29/2021 UA showed significant pyuria. Luther was changed. Typically candiduria does not need antifungal therapy especially since Luther was changed. However, given septic shock, treated with fluconazole 200 mg daily x 5 days. #Acute respiratory failure: On the vent #Acute renal failure: Renally adjust antibiotics. On dialysis. #Acute metabolic encephalopathy: related to CVA and severe hyponatremia which peaked at sodium of 179. #Acute CVA: neurology following. Recs: -completed fluconazole Juanita Darling MD, [facility] O: [phone] F: [phone] Subjective Date of service: 05/10/21 Principal diagnosis: Acute respiratory failure Interval history: No fever. Remains on the vent. Remains off pressors Objective - Exam Narrative Exam: Physical Exam: Constitutional: opens eyes, intubated, on the vent Head, Ears, Nose: Normocephalic, atraumatic. External ears, nose normal Eyes: Conjunctivae/corneas clear. No icterus. No ptosis. Neck: intubated Oral: intubated Cardiovascular: S1, S2 + Respiratory: AE fair bilaterally and equal GI: Soft, bowel sounds + Musculoskeletal: b/l UE swelling + Skin: No rash or abscess Hem/Lymphatic: No palpable cervical or supraclavicular nodes. No lymphangitis Psych: no agitation Neurological: opens eyes, intubated, on the vent, exam limited - Constitutional Vitals: Vital Signs Temp Pulse Resp BP Pulse Ox 98.7 F 96 H 15 102/48 99 05/10/21 12:00 05/10/21 12:00 05/10/21 12:00 05/10/21 12:00 05/10/21 12:00 Temperature -Last 24 Hours Temperature 98.7 F Temperature 99 F Temperature 98.2 F Temperature 99.6 F Temperature 99.3 F Temperature 99.0 F Temperature 99 F - Labs CBC & Chem 7: 05/10/21 05:00 05/10/21 05:00 Labs: Abnormal lab results 05/08/21 05/09/21 05/09/21 Range/Units 09:34 15:49 23:42 RBC (3.65-5.03) M/mm3 Hgb (10.1-14.3) gm/dl Hct (30.3-42.9) % RDW (13.2-15.2) % Plt Count (140-440) K/mm3 Sodium (137-145) mmol/L Potassium (3.6-5.0) mmol/L Chloride (98-107) mmol/L BUN (7-17) mg/dL Creatinine (0.6-1.2) mg/dL Glucose (65-100) mg/dL POC Glucose 318 H 152 H (70-105) mg/dL Urine Creatinine 56.0 H (0.1-20.0) mg/dL 05/10/21 05/10/21 05/10/21 Range/Units 05:00 05:00 05:30 RBC 2.99 L (3.65-5.03) M/mm3 Hgb 8.2 L (10.1-14.3) gm/dl Hct 25.6 L (30.3-42.9) % RDW 15.4 H (13.2-15.2) % Plt Count 456 H (140-440) K/mm3 Sodium 148 H (137-145) mmol/L Potassium 3.4 L (3.6-5.0) mmol/L Chloride 110.5 H (98-107) mmol/L BUN 36 H (7-17) mg/dL Creatinine 1.6 H (0.6-1.2) mg/dL Glucose 185 H (65-100) mg/dL POC Glucose 168 H (70-105) mg/dL Urine Creatinine (0.1-20.0) mg/dL 05/10/21 Range/Units 12:08 RBC (3.65-5.03) M/mm3 Hgb (10.1-14.3) gm/dl Hct (30.3-42.9) % RDW (13.2-15.2) % Plt Count (140-440) K/mm3 Sodium (137-145) mmol/L Potassium (3.6-5.0) mmol/L Chloride (98-107) mmol/L BUN (7-17) mg/dL Creatinine (0.6-1.2) mg/dL Glucose (65-100) mg/dL POC Glucose 193 H (70-105) mg/dL Urine Creatinine (0.1-20.0) mg/dL
[2021-05-10] MEDS ORDERED: POTASSIUM CHLORIDE 20 MEQ PACKET FEEDTUBE SCH (14:00)
--- NOTE | 2021-05-10 14:45 | Progress Note ---
<LISA CLIFTON - Last Filed: 05/10/21 21:29> Assessment and Plan Assessment and plan: This is a 80-year-old female, longterm resident with past medical history of GERD, hypothyroidism, hyperlipidemia, schizophrenia and dementia admitted with hypothermia, hyponatremia, hypokalemia, lactic acidosis, acute kidney injury, rhabdomyolysis and hyperosmolar nonketotic state. Hospital Course to Date: 04/21: Given 1 L LR bolus per nephrology and D5W increased to 125 mL's per hour, COVID-19 PCR pending, CXR and ABG ordered as patient was weaned from BiPAP to 3 L nasal cannula however was uptitrated back to nonrebreather. Will obtain blood cultures x2 given her leukocytosis and hypothermia. Replace potassium. Neurosurgery and neurology consulted and Luther catheter placed. 04/22: Improvement to sodium noted, slight hypokalemia which will be repleted, slight improvement to renal function, LFTs and rhabdomyolysis. Seen by neurosurgery today. Patient still making urine. transition to ssi and start TF as AG 15 04/23/2021: Given racemic epinephrine again due to stridor, continue IV fluids per nephrology, continue to trend sodium and BMP. 04/24/2021: 70/30 increased d/t hyperglycemia but recent BMP showed BG>300, gave additional 5 units IV insulin and ordered 5 units TID scheduled. However after IV insulin her PCOT was 400. Start on insulin gtt for hyperglycemia. Per RN she was not of IV D5 overniught d/t having one IV which was needed for emergency. Day RN did start dextrose. Remains with hyperglycemia. 04/25: Patient obtunded, withdrawal to pain only, on 50%Venti mask SPO2 abobe 92%. Plan to transition to SubQ insulin. Patient with mild hypernatremia this am, FWF added, will stop IVF for now. 04/26: Patient s/p intubation this am. Mentation is unchanged, plan for MRI brain today per NeuroSurg. Still hyperglycemic, hypernatremia improved, D5W D/katlyn, and basal insulin adjusted. 04/27: Bronch overnight. CXR with mild improvement. D/w Nephro plan for HD today, RIJ VasCath inserted. MRI on hold per [facility] patient is too unstable at this time, plan for possible spinal drained tomorrow to see if mentation will improve. 04/28: Tolerated HD overnight, only UF. Mentation remains the same. D/w CCM plan for possible large volume spinal tap under fluoroscopy today. Plan for possible HD again today. Continue FWF for elevated Na. 04/29: MARY overnight. Plan for spinal tap this am. febrile overnight with leukocytosis, remains on pressors and more tachycardic now. Will panculture patient, and empiric IV was initiated. Remains hyperglycemic, basal insulin adjusted. 04/30: Patient's mentation remains unchanged post spinal tap. Plan for possible MRI brain next week. Afebrile overnight and leukocytosis improved, However, vent settings are going up and this am ABG with hypoxia, this am CXR with worsening opacities. Patient with 3+ pitting edema. Continue HD per Nephro. Continue current empiric IV abx, f/u on culture data, might need to get ID on board if worsen. 05/01: Mentation is unchanged, still on pressors. Febrile this am, continue IV abx, ID consulted. 3L out yesterday, plan for HD again tomorrow. Plt count improved, might need to restart AC, will D/w CCM. 05/02: No change in mentation and she is now noted to be decorticating to pain -> MRI brain ordered. Scheduled for HD today. ID consult completed. 05/03: Neurology consulted given MRI findings of multiple acute CVAs, LINCOLN ordered, EEG pending, started on aspirin and Lipitor. updated POA 05/04: Received hemodialysis today, will schedule for LINCOLN today however HD was ongoing at the time neurology will obtain MRA brain and neck then consider LINCOLN, increasing midodrine to aid in weaning Levophed. 05/05: MRA/MRV completed today, urine culture grew Roselyn and was started on fluconazole, LINCOLN tentatively scheduled for tomorrow. Resume tube feeding and n.p.o. at midnight. 05/06: Patient was scheduled for LINCOLN which was attempted however patient became hypotensive and the procedure was aborted. She received HD today. No acute events reported overnight. Tube feedings resumed. 05/07: No acute changes overnight. 05/08: May need permacath, goals of care to be discussed and will likely happen after neuro recommendations tomorrow since LINCOLN was unable to be completed. No acute events overnight. Replete mag, decreased midodrine. 05/09: MARY overnight. Patient remains unresponsive. No HD today per Nephro, low K repleted. D/w CCM plan for possible conference call with patient's POA tomorrow to further discuss plan of care and possible alternatives. 05/10: Mentation unchanged. Given patient multiple failed PST, plan for possible trach and PEG per CCM. General Surgery consulted. No plan for HD today, low K repleted. Proph AC resumed, plt is stable. Assessment and Plan #Neuro:Acute CVA #Acute metabolic encephalopathy #Normal Pressure Hydrocephalus -CT head shows lateral ventricles and third ventricle dilation, raises possibility of normal pressure hydrocephalus -Neurology and neurosurgery consulted, appreciate recommendations -neurosurgery no acute interventions -04/29 s/p spinal tap- 24ml out -MRI brain with multiple ischemic events in both hemisphere, possible embolic event with water shed infarct can not be totally excluded. -Continue ASA and lipitor -Maintain sleep-wake cycle -Avoid delirium -Hold off on restarting home antipsychotic medications #Hypotension-improved #Tachycardia #Sepsis -Was hypotensive, multifactorial-hypovelemia vs infectious process -S/p pressors -BP is now stable, Midodrine D/C -Continue blood pressure monitor per protocol -Maintain MAP above 65 and SBP less than 160 #Respiratory: Acute hypoxic respiratory failure #CAP #Possible Aspiration -S/p intubation this am 04/26 -Vent setting:PRVC-30%,6,14,450 -04/26 s/p bronchoscopy, this am CXR with mild improvement -No ABG this am -CCM consulted, appreciate recommendations -VAP bundle addressed -Aspiration precaution HOB above 30 -Daily ABG and CXR -Continue SPO2 monitoring for SPO2 goal above 92% -Multiple failed PST, plan for possible trach/PEG -Gen. Surgery consulted #GI:Transaminitis #Hypoalbuminemia -Presented with transaminitis -Trend LFTs -Continue enteral nutrition -Ntr consult for TF -BR: Senokot -PPI #:Acute Kidney Injury (SYED) likely secondary to vasomotor nephropathy #Hypokalemia #Hypernatremia-improved #Urinary Retention-resolved -FeNA 0.50 indicating prerenal sate -Nephrology and CCM consulted, appreciate recommendations -04/27 vascath inserted and HD initiated, patient tolerated it well -Continue HD per Nephro -No HD today -Luther catheter placed for strict intake and output -Avoid nephrotoxic medication, Renally dose medications -K repleted -Continue to monitor and replace electrolytes as needed -Trend BMP #ID:CAP #Leukocytosis-improved #Urinary Tract Infection(UTI) -Patient presented hypothemic -CXR shows increased interstitial prominence of densities in bilateral lungs -COVID-19 PCR negative -Blood culture x2 NGTD -Antibiotic therapy course ended today 04/25 -Repeat Blood culture, and sputum culture NGTD -UA with pyuria, culture + yeast -Monitor WBC and fever curve -Daily CBC monitor -ID consulted #Endo:Hyperglycemia #s/p HHNK -Transition to SubQ insulin -Continue high dose SSI Q6hrs -Continue Basal, NPH -Avoid hypoglycemia #Heme:Thrombocytopenia-resolved -Presented with low plt, unknown etiology -Plt count improved -Resumed AC- Heparin SubQ -Trend CBC -Transfuse to hemoglobin less than 7 -Monitor for bleeding -r/o DVT, BE doppler neg -SCD to bilateral lower extremities while in bed The high probability of a clinically significant, sudden or life threatening deterioration of the [Multiple] system(s) required my full and direct attention, intervention and personal management. The aggregate critical care time was [60] minutes. This time is in addition to time spent performing reported procedures but includes the following: [x] Data Review and interpretation [x] Patient assessment and monitoring of vital signs [x] Documentation [x] Medication orders and management Disposition Plan: ICU Total Time Spent with Patient (Minutes): 60 History Interval history: Patient seen and examined at the bedside. Remains unresponsive. MARY overnight Hospitalist Physical - Constitutional Vitals: Temp Pulse Resp BP Pulse Ox 98.7 F 91 H 14 132/62 99 05/10/21 12:00 05/10/21 14:00 05/10/21 14:00 05/10/21 14:00 05/10/21 14:15 General appearance: Present: no acute distress, other (Intubated, unresponsive) - EENT Eyes: Present: PERRL - Respiratory Respiratory effort: normal Respiratory: bilateral: rhonchi - Cardiovascular Rhythm: regular Heart Sounds: Present: S1 & S2 - Extremities Extremities: no ischemia, pulses intact, pulses symmetrical Extremity abnormal: edema - Peripheral Assessment Generalized Edema Type: Pitting Edema Degree: 2+ Capillary Refill: < 3 seconds Skin Temperature: Warm Peripheral Pulses: within normal limits - Abdominal General gastrointestinal: soft, non-distended, normal bowel sounds - Integumentary Integumentary: Present: warm, dry - Psychiatric Psychiatric: other (Intubated, unresponsive) - Neurologic Neurologic: other (Intubated, unresponsive) - Allied Health Allied health notes reviewed: nursing HEART Score - HEART Score Troponin: Troponin T 0.021 ng/mL (0.00-0.029) 04/20/21 17:10 Results - Labs CBC & Chem 7: 05/10/21 05:00 05/10/21 05:00 Labs: Laboratory Last Values WBC 10.8 K/mm3 (4.5-11.0) 05/10/21 05:00 RBC 2.99 M/mm3 (3.65-5.03) L 05/10/21 05:00 Hgb 8.2 gm/dl (10.1-14.3) L 05/10/21 05:00 Hct 25.6 % (30.3-42.9) L 05/10/21 05:00 MCV 86 fl (79-97) 05/10/21 05:00 MCH 28 pg (28-32) 05/10/21 05:00 MCHC 32 % (30-34) 05/10/21 05:00 RDW 15.4 % (13.2-15.2) H 05/10/21 05:00 Plt Count 456 K/mm3 (140-440) H 05/10/21 05:00 Add Manual Diff Complete 04/28/21 04:00 Total Counted 100 04/28/21 04:00 Seg Neutrophils % Timekeeper 04/28/21 04:00 Seg Neuts % (Manual) 77.0 % (40.0-70.0) H 04/26/21 09:33 Band Neutrophils % 2.0 % 04/28/21 04:00 Lymphocytes % (Manual) 1.0 % (13.4-35.0) L 04/28/21 04:00 Reactive Lymphs % (Man) 0 % 04/28/21 04:00 Monocytes % (Manual) 1.0 % (0.0-7.3) 04/28/21 04:00 Eosinophils % (Manual) 3.0 % (0.0-4.3) 04/28/21 04:00 Metamyelocytes % 1.0 % 04/28/21 04:00 Myelocytes % 0 % 04/28/21 04:00 Promyelocytes % 0 % 04/28/21 04:00 Blast Cells % 0 % 04/28/21 04:00 Nucleated RBC % 4.0 % (0.0-0.9) H 04/28/21 04:00 Seg Neutrophils # Man 11.6 K/mm3 (1.8-7.7) H 04/28/21 04:00 Band Neutrophils # 0.3 K/mm3 04/28/21 04:00 Lymphocytes # (Manual) 0.1 K/mm3 (1.2-5.4) L 04/28/21 04:00 Abs React Lymphs (Man) 0.0 K/mm3 04/28/21 04:00 Monocytes # (Manual) 0.1 K/mm3 (0.0-0.8) 04/28/21 04:00 Eosinophils # (Manual) 0.4 K/mm3 (0.0-0.4) 04/28/21 04:00 Basophils # (Manual) 0.0 K/mm3 (0.0-0.1) 04/28/21 04:00 Metamyelocytes # 0.1 K/mm3 04/28/21 04:00 Myelocytes # 0.0 K/mm3 04/28/21 04:00 Promyelocytes # 0.0 K/mm3 04/28/21 04:00 Blast Cells # 0.0 K/mm3 04/28/21 04:00 WBC Morphology Not Reportable 04/28/21 04:00 Hypersegmented Neuts Not Reportable 04/28/21 04:00 Hyposegmented Neuts Not Reportable 04/28/21 04:00 Hypogranular Neuts Not Reportable 04/28/21 04:00 Smudge Cells Not Reportable 04/28/21 04:00 Toxic Granulation Not Reportable 04/28/21 04:00 Toxic Vacuolation Not Reportable 04/28/21 04:00 Dohle Bodies Not Reportable 04/28/21 04:00 Pelger-Huet Anomaly Not Reportable 04/28/21 04:00 Moni Rods Not Reportable 04/28/21 04:00 Platelet Estimate Consistent w auto 04/28/21 04:00 Clumped Platelets Not Reportable 04/28/21 04:00 Plt Clumps, EDTA Not Reportable 04/28/21 04:00 Large Platelets Few 04/28/21 04:00 Giant Platelets Not Reportable 04/28/21 04:00 Platelet Satelliting Not Reportable 04/28/21 04:00 Plt Morphology Comment Not Reportable 04/28/21 04:00 RBC Morphology Not Reportable 04/28/21 04:00 Dimorphic RBCs Not Reportable 04/28/21 04:00 Polychromasia Not Reportable 04/28/21 04:00 Hypochromasia Not Reportable 04/28/21 04:00 Poikilocytosis Not Reportable 04/28/21 04:00 Anisocytosis Not Reportable 04/28/21 04:00 Microcytosis Not Reportable 04/28/21 04:00 Macrocytosis Not Reportable 04/28/21 04:00 Spherocytes Not Reportable 04/28/21 04:00 Pappenheimer Bodies Not Reportable 04/28/21 04:00 Sickle Cells Not Reportable 04/28/21 04:00 Target Cells 1+ 04/28/21 04:00 Tear Drop Cells Not Reportable 04/28/21 04:00 Ovalocytes Not Reportable 04/28/21 04:00 Helmet Cells Not Reportable 04/28/21 04:00 Parkinson-[place] Bodies Not Reportable 04/28/21 04:00 [place] Rings Not Reportable 04/28/21 04:00 [place] Cells Not Reportable 04/28/21 04:00 Bite Cells Not Reportable 04/28/21 04:00 Crenated Cell Not Reportable 04/28/21 04:00 Elliptocytes Not Reportable 04/28/21 04:00 Acanthocytes (Spur) Not Reportable 04/28/21 04:00 Rouleaux Not Reportable 04/28/21 04:00 Hemoglobin C Crystals Not Reportable 04/28/21 04:00 Schistocytes Not Reportable 04/28/21 04:00 Malaria parasites Not Reportable 04/28/21 04:00 Herrera Bodies Not Reportable 04/28/21 04:00 Hem Pathologist Commnt No 04/28/21 04:00 PT 15.3 Sec. (12.2-14.9) H 04/28/21 05:00 INR 1.09 (0.87-1.13) 04/28/21 05:00 APTT 36.6 Sec. (24.2-36.6) 04/28/21 05:00 Heparin Anti-Xa, Unfract Negative (Negative) 04/24/21 17:29 ABG pH 7.487 (7.320-7.450) H 05/02/21 04:34 POC ABG pCO2 35.3 mmHg (32.0-48.0) 05/02/21 04:34 ABG pCO2 31.6 mm Hg 04/21/21 15:47 POC ABG pO2 78.6 mmHg (83-108) L 05/02/21 04:34 ABG pO2 168.1 mm Hg (80.0-90.0) H 04/21/21 15:47 POC ABG HCO3 26.1 05/02/21 04:34 ABG HCO3 23.3 mmol/L (20.0-26.0) 04/21/21 15:47 ABG O2 Saturation 96.0 (0-100) 05/02/21 04:34 ABG O2 Content 12.7 (0.0-44) 04/21/21 15:47 POC ABG Base Excess 2.9 05/02/21 04:34 ABG Base Excess 0.3 mmol/L (-2.0-3.0) 04/21/21 15:47 ABG Hemoglobin 11.5 (12.0-17.5) L 05/02/21 04:34 ABG Oxyhemoglobin 95.1 (94-98) 05/02/21 04:34 ABG Carboxyhemoglobin 1.0 % (0.0-5.0) 04/21/21 15:47 ABG Methemoglobin 0.3 (0.0-1.5) 05/02/21 04:34 ABG Sodium 138.6 mmol/L (136.0-145.0) 05/02/21 04:34 ABG Potassium 3.4 mmol/L (3.40-4.50) 05/02/21 04:34 ABG Chloride 105.0 mmol/L (98-107) 05/02/21 04:34 ABG Glucose 122 mg/dL (65-95) H 05/02/21 04:34 VBG pH 7.397 (7.320-7.420) 04/20/21 17:10 Oxyhemoglobin 97.5 % (95.0-99.0) 04/21/21 15:47 Carboxyhemoglobin 0.6 (0.5-1.5) 05/02/21 04:34 FiO2 100 % 04/21/21 15:47 FiO2 % 40.0 05/02/21 04:34 Sodium 148 mmol/L (137-145) H 05/10/21 05:00 Potassium 3.4 mmol/L (3.6-5.0) L 05/10/21 05:00 Chloride 110.5 mmol/L (98-107) H 05/10/21 05:00 Carbon Dioxide 28 mmol/L (22-30) 05/10/21 05:00 Anion Gap 13 mmol/L 05/10/21 05:00 BUN 36 mg/dL (7-17) H 05/10/21 05:00 Creatinine 1.6 mg/dL (0.6-1.2) H 05/10/21 05:00 Estimated GFR 38 ml/min 05/10/21 05:00 BUN/Creatinine Ratio 23 % 05/10/21 05:00 Glucose 185 mg/dL (65-100) H 05/10/21 05:00 POC Glucose 193 mg/dL (70-105) H 05/10/21 12:08 Hemoglobin A1c 17.1 % (4-6) H 04/22/21 15:55 Lactic Acid 1.90 mmol/L (0.7-2.0) 04/20/21 19:56 Calcium 8.6 mg/dL (8.4-10.2) 05/10/21 05:00 Phosphorus 2.90 mg/dL (2.5-4.5) 05/10/21 05:00 Magnesium 1.70 mg/dL (1.7-2.3) 05/10/21 05:00 Iron 62 ug/dL (37-170) 04/24/21 17:29 TIBC 285 mcg/dL (250-450) 04/24/21 17:29 % Saturation 21.75 % 04/24/21 17:29 Transferrin 112 mg/dl (192-382) L 04/24/21 17:29 Total Bilirubin 0.20 mg/dL (0.1-1.2) 05/03/21 04:00 Direct Bilirubin < 0.2 mg/dL (0-0.2) 04/29/21 04:00 Indirect Bilirubin 0.1 mg/dL 04/29/21 04:00 AST 53 units/L (5-40) H 05/03/21 04:00 ALT 55 units/L (7-56) 05/03/21 04:00 Alkaline Phosphatase 149 units/L (35-129) H 05/03/21 04:00 Ammonia 29.0 umol/L (25-60) 04/20/21 17:10 Total Creatine Kinase 1000 units/L (30-135) H 04/27/21 07:43 CK-MB (CK-2) 36.0 ng/mL (0.0-4.0) H 04/20/21 17:10 CK-MB (CK-2) Rel Index 0.9 (0-4) 04/20/21 17:10 Troponin T 0.021 ng/mL (0.00-0.029) 04/20/21 17:10 Serum Total Protein 5.5 g/dL (6.1-8.1) L 04/22/21 08:59 Total Protein 5.2 g/dL (6.3-8.2) L 05/03/21 04:00 Albumin 1.5 g/dL (3.9-5) L 05/03/21 04:00 Albumin/Globulin Ratio 0.4 % 05/03/21 04:00 Mrxht-5-Sohwzxyob 0.6 g/dL (0.2-0.3) H 04/22/21 08:59 Fuqwg-2-Ngjgtfqfw 1.0 g/dL (0.5-0.9) H 04/22/21 08:59 Beta Globulins 0.3 g/dL (0.2-0.5) 04/22/21 08:59 Gamma Globulins 0.6 g/dL (0.8-1.7) L 04/22/21 08:59 Abnorm Protein Band 1 see below 04/22/21 08:59 PEP Interpretation see below H 04/22/21 08:59 Triglycerides 80 mg/dL (2-149) 05/04/21 04:48 Cholesterol 90 mg/dL (50-199) 05/04/21 04:48 LDL Cholesterol Direct 51 mg/dL (50-130) 05/04/21 04:48 HDL Cholesterol 24 mg/dL (40-59) L 05/04/21 04:48 Cholesterol/HDL Ratio 3.75 % 05/04/21 04:48 Serotonin Release Assay See scanned result 04/24/21 17:29 TSH 6.040 mlU/mL (0.270-4.200) H 04/20/21 17:10 Free T4 0.93 ng/dL (0.76-1.46) 04/20/21 17:10 Arterial Blood Glucose 122 mg/dL (65-95) H 05/02/21 04:34 Arterial Blood Ionized Calcium 4.5 mg/dL (4.6-5.3) L 04/28/21 05:18 Urine Color Yellow (Yellow) 04/29/21 13:30 Urine Turbidity Turbid (Clear) 04/29/21 13:30 Urine pH 5.0 (5.0-7.0) 04/29/21 13:30 Ur Specific [place] 1.010 (1.003-1.030) 04/29/21 13:30 Urine Protein 100 mg/dl mg/dL (Negative) 04/29/21 13:30 Urine Glucose (UA) 150 mg/dL (Negative) 04/29/21 13:30 Urine Ketones Neg mg/dL (Negative) 04/29/21 13:30 Urine Blood Lg (Negative) 04/29/21 13:30 Urine Nitrite Neg (Negative) 04/29/21 13:30 Urine Bilirubin Neg (Negative) 04/29/21 13:30 Urine Urobilinogen < 2.0 mg/dL (<2.0) 04/29/21 13:30 Ur Leukocyte Esterase Lg (Negative) 04/29/21 13:30 Urine WBC (Auto) > 182.0 /HPF (0.0-6.0) H 04/29/21 13:30 Urine RBC (Auto) > 182.0 /HPF (0.0-6.0) 04/29/21 13:30 U Epithel Cells (Auto) 4.0 /HPF (0-13.0) 04/29/21 13:30 Urine WBC Clumps 3+ /HPF 04/29/21 13:30 Urine Mucus Few /HPF 04/29/21 13:30 Urine Yeast (Budding) 3+ /HPF 04/29/21 13:30 Urine Osmolality 446 Mosm/kg 04/21/21 08:01 Urine Total Volume 1700 ml 05/08/21 09:34 Urine Creatinine 56.0 mg/dL (0.1-20.0) H 05/08/21 09:34 Ur Creatinine 24 Hour 1.0 (0.8-2.8) 05/08/21 09:34 Urine Sodium 71 mmol/L 04/21/21 08:01 Urine Total Protein 12 mg/dL (5-11.8) H 04/21/21 08:01 CSF Appearance Clear 04/29/21 11:45 CSF Color Colorless 04/29/21 11:45 CSF WBC 14 /mm3 (1-10) 04/29/21 11:45 CSF RBC 324 /mm3 (0-0) 04/29/21 11:45 CSF Seg Neutrophils 50.0 % (0-6) 04/29/21 11:45 CSF Lymphocytes % 40.0 % (40-80) 04/29/21 11:45 CSF Reactive Lymphs Not Reportable 04/29/21 11:45 CSF Monocytes % 10.0 % (15-45) 04/29/21 11:45 CSF Eosinophils % Not Reportable 04/29/21 11:45 CSF Basophils Not Reportable 04/29/21 11:45 CSF Pathologist Review C 04/29/21 11:45 CSF Glucose 161 mg/dL 04/29/21 11:45 CSF Total Protein 51 mg/dL 04/29/21 11:45 Plasma/Serum Alcohol < 0.01 % (0-0.07) 04/20/21 17:10 Heparin-induced Plt Ab Negative (Negative) 04/24/21 17:29 UF Heparin High Dose 1 % Release 04/24/21 17:29 EFE UFH Low Dose 0.1 0 % Release 04/24/21 17:29 EFE UFH Low Dose 0.5 0 % Release 04/24/21 17:29 Coronavirus (PCR) Negative (Negative) 04/21/21 Unknown Hepatitis A IgM Ab Non-reactive (NonReactive) 04/27/21 12:49 Hep Bs Antigen Nonreactive (Negative) 04/27/21 12:49 Hep B Core IgM Ab Non-reactive (NonReactive) 04/27/21 12:49 Hepatitis C Antibody Non-reactive (NonReactive) 04/27/21 12:49 Blood Type O POSITIVE 05/02/21 12:00 Antibody Screen Negative 05/02/21 12:00 Crossmatch See Detail 05/02/21 12:00 Luther/IV: Voiding Method Indwelling Catheter Active Medications - Current Medications Current Medications: Generic Name Dose Route Start Last Admin Trade Name Freq PRN Reason Stop Dose Admin Acetaminophen 650 mg 04/20/21 21:31 05/01/21 18:15 Acetaminophen 325 Mg Tab PO 650 mg Q4H PRN Administration Pain MILD(1-3)/Fever >100.5/TURCIOS Albumin Human 25 gm 05/06/21 16:06 05/06/21 16:21 Albumin Human 25% (25 Gm/100 Ml) Inj IV 25 gm MITCH PRN Administration Hypotension Albuterol 2.5 mg 04/22/21 14:49 04/23/21 15:18 Albuterol 2.5 Mg/3 Ml Nebu IH 2.5 mg Q4HRT PRN Administration Shortness Of Breath Lipase/Protease/Amylase 1 each 04/25/21 14:13 Lipase 10,500/Protease 25,000/Amylase 43,750 (Units) Dr Vasquez FEEDTUBE PRN PRN For Clogged Feeding Tube Aspirin 81 mg 05/04/21 10:00 05/10/21 09:28 Aspirin 81 Mg Tab Chew FEEDTUBE 81 mg QDAY AZIZA Administration Atorvastatin Calcium 40 mg 05/04/21 22:00 05/09/21 22:38 Atorvastatin 40 Mg Tab FEEDTUBE 40 mg QHS AZIZA Administration Dextrose 50 ml 04/24/21 11:36 Dextrose 50% In Water (25gm) 50 Ml Syringe IV Q30MIN PRN Hypoglycemia Protocol Famotidine 10 mg 04/27/21 10:00 05/10/21 09:28 Famotidine 10 Mg Tab FEEDTUBE 10 mg BID AZIZA Administration Heparin Sodium (Porcine) 5,000 unit 05/10/21 22:00 Heparin 5,000 Unit/1 Ml Vial SUB-Q Q12HR AZIZA Hydralazine HCl 10 mg 04/24/21 21:22 05/10/21 09:28 Hydralazine 20 Mg/1 Ml Inj IV 10 mg Q4HR PRN Administration elevated BP Hydrophilic Ointment 1 applic 04/26/21 11:16 Lip Therapy Vaseline TP Q2HR PRN Dry Lips NORepinephrine/NS 8 MG-250 ML 8 mg in 250 mls @ 3.75 mls/hr 04/26/21 16:00 05/04/21 21:34 Norepinephrine/Ns 8 Mg-250 Ml (Double Conc) IV 0 mcg/min TITRATE AZIZA 0 mls/hr Titration Protocol 2 MCG/MIN Sodium Chloride 100 mls @ 999 mls/hr 05/06/21 16:06 Nacl 0.9% IV MITCH PRN Hypotension Insulin Human Lispro 0 unit 04/25/21 18:00 05/10/21 12:43 Insulin Lispro 100 Unit/Ml SUB-Q 3 unit Q6HR AZIZA Administration Protocol Levothyroxine Sodium 50 mcg 05/03/21 06:00 05/10/21 06:20 Levothyroxine 50 Mcg Tab PO 50 mcg DAILY@0600 [facility] Administration Lorazepam 1 mg 04/26/21 11:15 05/10/21 10:46 Lorazepam 2 Mg/Ml Vial IV 1 mg Q4H PRN Administration Sedation Metoclopramide HCl 5 mg 04/20/21 21:31 Metoclopramide 10 Mg/2 Ml Inj IV Q6H PRN Nausea And Vomiting Multi-Ingred Cream/Lotion/Oil/Oint 1 applic 04/26/21 11:16 Mineral Oil/Petrolatum, White Ophth Oint 3.5 Gm OU Q4HR PRN Dry Eye(s) Ondansetron HCl 4 mg 04/20/21 21:31 Ondansetron 4 Mg/2 Ml Inj IV Q8H PRN Nausea And Vomiting Potassium Chloride 40 meq 05/10/21 14:00 Potassium Chloride 20 Meq Packet FEEDTUBE 05/10/21 18:00 ONCE@1400 AZIZA Senna/Docusate Sodium 1 tab 04/26/21 22:00 05/10/21 09:28 Sennosides/Docusate Sodium 8.6/50 Mg Tab FEEDTUBE 1 tab BID AZIZA Administration Simple Syrup 15 ml 04/25/21 14:13 Simple Syrup 15 Ml FEEDTUBE PRN PRN Hypoglycemia Simple Syrup 30 ml 04/25/21 14:13 Simple Syrup 15 Ml FEEDTUBE PRN PRN Hypoglycemia Sodium Bicarbonate 325 mg 04/25/21 14:13 04/27/21 13:00 Sodium Bicarbonate 325 Mg Tab FEEDTUBE 325 mg PRN PRN Administration For Clogged Feeding Tube Sodium Bicarbonate 1,300 mg 04/27/21 14:00 05/10/21 08:27 Sodium Bicarbonate 650 Mg Tab PO 1,300 mg TID AZIZA Administration Sodium Chloride 10 ml 04/20/21 22:00 05/10/21 09:28 Sodium Chloride 0.9% 10 Ml Flush Syringe IV 10 ml BID AZIZA Administration Sodium Chloride 10 ml 04/20/21 21:31 Sodium Chloride 0.9% 10 Ml Flush Syringe IV PRN PRN LINE FLUSH Nutrition/Malnutrition Assess - Dietary Evaluation Nutrition/Malnutrition Findings: Nutrition Notes Start: 04/21/21 12:15 Freq: Status: Active Protocol: Document 05/04/21 16:15 JOSE (Rec: 05/04/21 16:26 JOSE [id number]) Nutrition Notes Initial or Follow up Brief Note Current Diet TF-Nepro w/CARBSTEADY @ 32 ml/ hr (since 04/29). Height 5 ft 2 in Weight 72.4 kg [place] Body Weight (kg) 50.00 BMI 29.2 Weight change and time frame No body weight change reported . Weight Status Overweight Subjective/Other Information RD consult for routine F/U on TF tolerance. TF continues as prescribed, therefore, well tolerated. Percent of energy/protein needs met: Prescribed TF-Nepro w/ CARBSTEADY @ 32 ml/hr provides for energy/protein needs (1, 389 Kcal/63 g) during LOS, 100 % Kcal; 72% AA. Current % PO Other Minimum of two criteria No #1 Nutrition Diagnosis Inadequate oral intake Diagnosis Progress(for reassessment Continues documentation) Nutrition Intervention Nutrition Support: Continue TF to Nepro w/ CARBSTEADY @ 32 ml/hr. Flush: 140 ml water Q 4 hr, or as per MD. % RDI: 100% Kcal; 72% AA. Goal #1 Provide at least 75% of energy /protein needs through Enteral Feeding during LOS. Follow-Up By: 05/11/21 Additional Comments Continue monitoring TF tolerance and BM. <TACHO RUBALCAVA - Last Filed: 05/14/21 12:21> Assessment and Plan Assessment and plan: I saw and evaluated the patient. Discussed with the nurse practitioner and agree with their findings and plan as documented in this note. Hospitalist Physical - Constitutional Vitals: Temp Pulse Resp BP Pulse Ox 99.9 F H 95 H 14 123/54 100 05/14/21 11:22 05/14/21 11:31 05/14/21 11:31 05/14/21 11:31 05/14/21 11:31 HEART Score - HEART Score Troponin: Troponin T 0.021 ng/mL (0.00-0.029) 04/20/21 17:10 Results - Labs CBC & Chem 7: 05/14/21 04:43 05/14/21 04:43 Labs: Laboratory Last Values WBC 10.1 K/mm3 (4.5-11.0) 05/14/21 04:43 RBC 3.02 M/mm3 (3.65-5.03) L 05/14/21 04:43 Hgb 8.3 gm/dl (10.1-14.3) L 05/14/21 04:43 Hct 25.6 % (30.3-42.9) L 05/14/21 04:43 MCV 85 fl (79-97) 05/14/21 04:43 MCH 28 pg (28-32) 05/14/21 04:43 MCHC 33 % (30-34) 05/14/21 04:43 RDW 15.5 % (13.2-15.2) H 05/14/21 04:43 Plt Count 482 K/mm3 (140-440) H 05/14/21 04:43 Add Manual Diff Complete 04/28/21 04:00 Total Counted 100 04/28/21 04:00 Seg Neutrophils % Timekeeper 04/28/21 04:00 Seg Neuts % (Manual) 77.0 % (40.0-70.0) H 04/26/21 09:33 Band Neutrophils % 2.0 % 04/28/21 04:00 Lymphocytes % (Manual) 1.0 % (13.4-35.0) L 04/28/21 04:00 Reactive Lymphs % (Man) 0 % 04/28/21 04:00 Monocytes % (Manual) 1.0 % (0.0-7.3) 04/28/21 04:00 Eosinophils % (Manual) 3.0 % (0.0-4.3) 04/28/21 04:00 Metamyelocytes % 1.0 % 04/28/21 04:00 Myelocytes % 0 % 04/28/21 04:00 Promyelocytes % 0 % 04/28/21 04:00 Blast Cells % 0 % 04/28/21 04:00 Nucleated RBC % 4.0 % (0.0-0.9) H 04/28/21 04:00 Seg Neutrophils # Man 11.6 K/mm3 (1.8-7.7) H 04/28/21 04:00 Band Neutrophils # 0.3 K/mm3 04/28/21 04:00 Lymphocytes # (Manual) 0.1 K/mm3 (1.2-5.4) L 04/28/21 04:00 Abs React Lymphs (Man) 0.0 K/mm3 04/28/21 04:00 Monocytes # (Manual) 0.1 K/mm3 (0.0-0.8) 04/28/21 04:00 Eosinophils # (Manual) 0.4 K/mm3 (0.0-0.4) 04/28/21 04:00 Basophils # (Manual) 0.0 K/mm3 (0.0-0.1) 04/28/21 04:00 Metamyelocytes # 0.1 K/mm3 04/28/21 04:00 Myelocytes # 0.0 K/mm3 04/28/21 04:00 Promyelocytes # 0.0 K/mm3 04/28/21 04:00 Blast Cells # 0.0 K/mm3 04/28/21 04:00 WBC Morphology Not Reportable 04/28/21 04:00 Hypersegmented Neuts Not Reportable 04/28/21 04:00 Hyposegmented Neuts Not Reportable 04/28/21 04:00 Hypogranular Neuts Not Reportable 04/28/21 04:00 Smudge Cells Not Reportable 04/28/21 04:00 Toxic Granulation Not Reportable 04/28/21 04:00 Toxic Vacuolation Not Reportable 04/28/21 04:00 Dohle Bodies Not Reportable 04/28/21 04:00 Pelger-Huet Anomaly Not Reportable 04/28/21 04:00 Moni Rods Not Reportable 04/28/21 04:00 Platelet Estimate Consistent w auto 04/28/21 04:00 Clumped Platelets Not Reportable 04/28/21 04:00 Plt Clumps, EDTA Not Reportable 04/28/21 04:00 Large Platelets Few 04/28/21 04:00 Giant Platelets Not Reportable 04/28/21 04:00 Platelet Satelliting Not Reportable 04/28/21 04:00 Plt Morphology Comment Not Reportable 04/28/21 04:00 RBC Morphology Not Reportable 04/28/21 04:00 Dimorphic RBCs Not Reportable 04/28/21 04:00 Polychromasia Not Reportable 04/28/21 04:00 Hypochromasia Not Reportable 04/28/21 04:00 Poikilocytosis Not Reportable 04/28/21 04:00 Anisocytosis Not Reportable 04/28/21 04:00 Microcytosis Not Reportable 04/28/21 04:00 Macrocytosis Not Reportable 04/28/21 04:00 Spherocytes Not Reportable 04/28/21 04:00 Pappenheimer Bodies Not Reportable 04/28/21 04:00 Sickle Cells Not Reportable 04/28/21 04:00 Target Cells 1+ 04/28/21 04:00 Tear Drop Cells Not Reportable 04/28/21 04:00 Ovalocytes Not Reportable 04/28/21 04:00 Helmet Cells Not Reportable 04/28/21 04:00 Parkinson-[place] Bodies Not Reportable 04/28/21 04:00 [place] Rings Not Reportable 04/28/21 04:00 [place] Cells Not Reportable 04/28/21 04:00 Bite Cells Not Reportable 04/28/21 04:00 Crenated Cell Not Reportable 04/28/21 04:00 Elliptocytes Not Reportable 04/28/21 04:00 Acanthocytes (Spur) Not Reportable 04/28/21 04:00 Rouleaux Not Reportable 04/28/21 04:00 Hemoglobin C Crystals Not Reportable 04/28/21 04:00 Schistocytes Not Reportable 04/28/21 04:00 Malaria parasites Not Reportable 04/28/21 04:00 Herrera Bodies Not Reportable 04/28/21 04:00 Hem Pathologist Commnt No 04/28/21 04:00 PT 14.7 Sec. (12.2-14.9) 05/13/21 04:24 INR 1.04 (0.87-1.13) 05/13/21 04:24 APTT 36.6 Sec. (24.2-36.6) 04/28/21 05:00 Heparin Anti-Xa, Unfract Negative (Negative) 04/24/21 17:29 ABG pH 7.487 (7.320-7.450) H 05/02/21 04:34 POC ABG pCO2 35.3 mmHg (32.0-48.0) 05/02/21 04:34 ABG pCO2 31.6 mm Hg 04/21/21 15:47 POC ABG pO2 78.6 mmHg (83-108) L 05/02/21 04:34 ABG pO2 168.1 mm Hg (80.0-90.0) H 04/21/21 15:47 POC ABG HCO3 26.1 05/02/21 04:34 ABG HCO3 23.3 mmol/L (20.0-26.0) 04/21/21 15:47 ABG O2 Saturation 96.0 (0-100) 05/02/21 04:34 ABG O2 Content 12.7 (0.0-44) 04/21/21 15:47 POC ABG Base Excess 2.9 05/02/21 04:34 ABG Base Excess 0.3 mmol/L (-2.0-3.0) 04/21/21 15:47 ABG Hemoglobin 11.5 (12.0-17.5) L 05/02/21 04:34 ABG Oxyhemoglobin 95.1 (94-98) 05/02/21 04:34 ABG Carboxyhemoglobin 1.0 % (0.0-5.0) 04/21/21 15:47 ABG Methemoglobin 0.3 (0.0-1.5) 05/02/21 04:34 ABG Sodium 138.6 mmol/L (136.0-145.0) 05/02/21 04:34 ABG Potassium 3.4 mmol/L (3.40-4.50) 05/02/21 04:34 ABG Chloride 105.0 mmol/L (98-107) 05/02/21 04:34 ABG Glucose 122 mg/dL (65-95) H 05/02/21 04:34 VBG pH 7.397 (7.320-7.420) 04/20/21 17:10 Oxyhemoglobin 97.5 % (95.0-99.0) 04/21/21 15:47 Carboxyhemoglobin 0.6 (0.5-1.5) 05/02/21 04:34 FiO2 100 % 04/21/21 15:47 FiO2 % 40.0 05/02/21 04:34 Sodium 138 mmol/L (137-145) 05/14/21 04:43 Potassium 4.0 mmol/L (3.6-5.0) 05/14/21 04:43 Chloride 104.1 mmol/L (98-107) 05/14/21 04:43 Carbon Dioxide 23 mmol/L (22-30) 05/14/21 04:43 Anion Gap 15 mmol/L 05/14/21 04:43 BUN 29 mg/dL (7-17) H 05/14/21 04:43 Creatinine 1.2 mg/dL (0.6-1.2) 05/14/21 04:43 Estimated GFR 52 ml/min 05/14/21 04:43 BUN/Creatinine Ratio 24 % 05/14/21 04:43 Glucose 192 mg/dL (65-100) H 05/14/21 04:43 POC Glucose 215 mg/dL (70-105) H 05/14/21 10:59 Hemoglobin A1c 17.1 % (4-6) H 04/22/21 15:55 Lactic Acid 1.90 mmol/L (0.7-2.0) 04/20/21 19:56 Calcium 8.1 mg/dL (8.4-10.2) L 05/14/21 04:43 Phosphorus 3.20 mg/dL (2.5-4.5) 05/14/21 04:43 Magnesium 2.20 mg/dL (1.7-2.3) 05/14/21 04:43 Iron 62 ug/dL (37-170) 04/24/21 17:29 TIBC 285 mcg/dL (250-450) 04/24/21 17:29 % Saturation 21.75 % 04/24/21 17:29 Transferrin 112 mg/dl (192-382) L 04/24/21 17:29 Total Bilirubin 0.20 mg/dL (0.1-1.2) 05/03/21 04:00 Direct Bilirubin < 0.2 mg/dL (0-0.2) 04/29/21 04:00 Indirect Bilirubin 0.1 mg/dL 04/29/21 04:00 AST 53 units/L (5-40) H 05/03/21 04:00 ALT 55 units/L (7-56) 05/03/21 04:00 Alkaline Phosphatase 149 units/L (35-129) H 05/03/21 04:00 Ammonia 29.0 umol/L (25-60) 04/20/21 17:10 Total Creatine Kinase 1000 units/L (30-135) H 04/27/21 07:43 CK-MB (CK-2) 36.0 ng/mL (0.0-4.0) H 04/20/21 17:10 CK-MB (CK-2) Rel Index 0.9 (0-4) 04/20/21 17:10 Troponin T 0.021 ng/mL (0.00-0.029) 04/20/21 17:10 Serum Total Protein 5.5 g/dL (6.1-8.1) L 04/22/21 08:59 Total Protein 5.2 g/dL (6.3-8.2) L 05/03/21 04:00 Albumin 1.5 g/dL (3.9-5) L 05/03/21 04:00 Albumin/Globulin Ratio 0.4 % 05/03/21 04:00 Mhkyn-7-Qgbphenjo 0.6 g/dL (0.2-0.3) H 04/22/21 08:59 Nsoum-7-Tecxarhyp 1.0 g/dL (0.5-0.9) H 04/22/21 08:59 Beta Globulins 0.3 g/dL (0.2-0.5) 04/22/21 08:59 Gamma Globulins 0.6 g/dL (0.8-1.7) L 04/22/21 08:59 Abnorm Protein Band 1 see below 04/22/21 08:59 PEP Interpretation see below H 04/22/21 08:59 Triglycerides 80 mg/dL (2-149) 05/04/21 04:48 Cholesterol 90 mg/dL (50-199) 05/04/21 04:48 LDL Cholesterol Direct 51 mg/dL (50-130) 05/04/21 04:48 HDL Cholesterol 24 mg/dL (40-59) L 05/04/21 04:48 Cholesterol/HDL Ratio 3.75 % 05/04/21 04:48 Serotonin Release Assay See scanned result 04/24/21 17:29 TSH 6.040 mlU/mL (0.270-4.200) H 04/20/21 17:10 Free T4 0.93 ng/dL (0.76-1.46) 04/20/21 17:10 Arterial Blood Glucose 122 mg/dL (65-95) H 05/02/21 04:34 Arterial Blood Ionized Calcium 4.5 mg/dL (4.6-5.3) L 04/28/21 05:18 Urine Color Yellow (Yellow) 04/29/21 13:30 Urine Turbidity Turbid (Clear) 04/29/21 13:30 Urine pH 5.0 (5.0-7.0) 04/29/21 13:30 Ur Specific [place] 1.010 (1.003-1.030) 04/29/21 13:30 Urine Protein 100 mg/dl mg/dL (Negative) 04/29/21 13:30 Urine Glucose (UA) 150 mg/dL (Negative) 04/29/21 13:30 Urine Ketones Neg mg/dL (Negative) 04/29/21 13:30 Urine Blood Lg (Negative) 04/29/21 13:30 Urine Nitrite Neg (Negative) 04/29/21 13:30 Urine Bilirubin Neg (Negative) 04/29/21 13:30 Urine Urobilinogen < 2.0 mg/dL (<2.0) 04/29/21 13:30 Ur Leukocyte Esterase Lg (Negative) 04/29/21 13:30 Urine WBC (Auto) > 182.0 /HPF (0.0-6.0) H 04/29/21 13:30 Urine RBC (Auto) > 182.0 /HPF (0.0-6.0) 04/29/21 13:30 U Epithel Cells (Auto) 4.0 /HPF (0-13.0) 04/29/21 13:30 Urine WBC Clumps 3+ /HPF 04/29/21 13:30 Urine Mucus Few /HPF 04/29/21 13:30 Urine Yeast (Budding) 3+ /HPF 04/29/21 13:30 Urine Osmolality 446 Mosm/kg 04/21/21 08:01 Urine Total Volume 1700 ml 05/08/21 09:34 Urine Creatinine 56.0 mg/dL (0.1-20.0) H 05/08/21 09:34 Ur Creatinine 24 Hour 1.0 (0.8-2.8) 05/08/21 09:34 Urine Sodium 71 mmol/L 04/21/21 08:01 Urine Total Protein 12 mg/dL (5-11.8) H 04/21/21 08:01 CSF Appearance Clear 04/29/21 11:45 CSF Color Colorless 04/29/21 11:45 CSF WBC 14 /mm3 (1-10) 04/29/21 11:45 CSF RBC 324 /mm3 (0-0) 04/29/21 11:45 CSF Seg Neutrophils 50.0 % (0-6) 04/29/21 11:45 CSF Lymphocytes % 40.0 % (40-80) 04/29/21 11:45 CSF Reactive Lymphs Not Reportable 04/29/21 11:45 CSF Monocytes % 10.0 % (15-45) 04/29/21 11:45 CSF Eosinophils % Not Reportable 04/29/21 11:45 CSF Basophils Not Reportable 04/29/21 11:45 CSF Pathologist Review C 04/29/21 11:45 CSF Glucose 161 mg/dL 04/29/21 11:45 CSF Total Protein 51 mg/dL 04/29/21 11:45 Plasma/Serum Alcohol < 0.01 % (0-0.07) 04/20/21 17:10 Heparin-induced Plt Ab Negative (Negative) 04/24/21 17:29 UF Heparin High Dose 1 % Release 04/24/21 17:29 EFE UFH Low Dose 0.1 0 % Release 04/24/21 17:29 EFE UFH Low Dose 0.5 0 % Release 04/24/21 17:29 Coronavirus (PCR) Negative (Negative) 04/21/21 Unknown Hepatitis A IgM Ab Non-reactive (NonReactive) 04/27/21 12:49 Hep Bs Antigen Nonreactive (Negative) 04/27/21 12:49 Hep B Core IgM Ab Non-reactive (NonReactive) 04/27/21 12:49 Hepatitis C Antibody Non-reactive (NonReactive) 04/27/21 12:49 Blood Type O POSITIVE 05/02/21 12:00 Antibody Screen Negative 05/02/21 12:00 Crossmatch See Detail 05/02/21 12:00 Microbiology: Microbiology 05/02/21 Unknown Urine,Catheterized - Indwelling Catheter Urine Culture - Final Roselyn Tropicalis Luther/IV: Voiding Method Indwelling Catheter Active Medications - Current Medications Current Medications: Generic Name Dose Route Start Last Admin Trade Name Freq PRN Reason Stop Dose Admin Acetaminophen 650 mg 04/20/21 21:31 05/14/21 09:50 Acetaminophen 325 Mg Tab PO 650 mg Q4H PRN Administration Pain MILD(1-3)/Fever >100.5/TURCIOS Albumin Human 25 gm 05/06/21 16:06 05/06/21 16:21 Albumin Human 25% (25 Gm/100 Ml) Inj IV 25 gm MITCH PRN Administration Hypotension Albuterol 2.5 mg 04/22/21 14:49 04/23/21 15:18 Albuterol 2.5 Mg/3 Ml Nebu IH 2.5 mg Q4HRT PRN Administration Shortness Of Breath Amlodipine Besylate 5 mg 05/12/21 10:00 05/14/21 09:49 Amlodipine 5 Mg Tab PO 5 mg QDAY AZIZA Administration Lipase/Protease/Amylase 1 each 04/25/21 14:13 Lipase 10,500/Protease 25,000/Amylase 43,750 (Units) Dr Vasquez FEEDTUBE PRN PRN For Clogged Feeding Tube Aspirin 81 mg 05/04/21 10:00 05/14/21 09:50 Aspirin 81 Mg Tab Chew FEEDTUBE 81 mg QDAY AZIZA Administration Atorvastatin Calcium 40 mg 05/04/21 22:00 05/13/21 21:39 Atorvastatin 40 Mg Tab FEEDTUBE 40 mg QHS AZIZA Administration Dextrose 50 ml 04/24/21 11:36 Dextrose 50% In Water (25gm) 50 Ml Syringe IV Q30MIN PRN Hypoglycemia Protocol Famotidine 10 mg 04/27/21 10:00 05/14/21 09:50 Famotidine 10 Mg Tab FEEDTUBE 10 mg BID AZIZA Administration Heparin Sodium (Porcine) 5,000 unit 05/10/21 22:00 05/14/21 09:50 Heparin 5,000 Unit/1 Ml Vial SUB-Q 5,000 unit Q12HR AZIZA Administration Hydrophilic Ointment 1 applic 04/26/21 11:16 Lip Therapy Vaseline TP Q2HR PRN Dry Lips Sodium Chloride 1,000 mls @ 100 mls/hr 05/14/21 08:30 05/14/21 09:53 Nacl 0.9% 1000 Ml IV 05/14/21 18:29 100 mls/hr DIRECT AZIZA Administration Insulin Human Lispro 0 unit 04/25/21 18:00 05/14/21 12:05 Insulin Lispro 100 Unit/Ml SUB-Q 4 unit Q6HR AZIZA Administration Protocol Labetalol HCl 20 mg 05/12/21 11:34 05/12/21 21:35 Labetalol 20 Mg/4 Ml Inj IV 20 mg Q4H PRN Administration SBP >/=170 Levothyroxine Sodium 50 mcg 05/03/21 06:00 05/14/21 05:27 Levothyroxine 50 Mcg Tab PO 50 mcg DAILY@0600 [facility] Administration Lorazepam 1 mg 04/26/21 11:15 05/12/21 16:27 Lorazepam 2 Mg/Ml Vial IV 1 mg Q4H PRN Administration Sedation Metoclopramide HCl 5 mg 04/20/21 21:31 Metoclopramide 10 Mg/2 Ml Inj IV Q6H PRN Nausea And Vomiting Multi-Ingred Cream/Lotion/Oil/Oint 1 applic 04/26/21 11:16 Mineral Oil/Petrolatum, White Ophth Oint 3.5 Gm OU Q4HR PRN Dry Eye(s) Ondansetron HCl 4 mg 04/20/21 21:31 Ondansetron 4 Mg/2 Ml Inj IV Q8H PRN Nausea And Vomiting Senna/Docusate Sodium 1 tab 04/26/21 22:00 05/14/21 09:50 Sennosides/Docusate Sodium 8.6/50 Mg Tab FEEDTUBE 1 tab BID AZIZA Administration Simple Syrup 15 ml 04/25/21 14:13 Simple Syrup 15 Ml FEEDTUBE PRN PRN Hypoglycemia Simple Syrup 30 ml 04/25/21 14:13 Simple Syrup 15 Ml FEEDTUBE PRN PRN Hypoglycemia Sodium Bicarbonate 325 mg 04/25/21 14:13 04/27/21 13:00 Sodium Bicarbonate 325 Mg Tab FEEDTUBE 325 mg PRN PRN Administration For Clogged Feeding Tube Sodium Bicarbonate 1,300 mg 04/27/21 14:00 05/14/21 08:48 Sodium Bicarbonate 650 Mg Tab PO 1,300 mg TID AZIZA Administration Sodium Chloride 10 ml 04/20/21 22:00 05/14/21 09:51 Sodium Chloride 0.9% 10 Ml Flush Syringe IV 10 ml BID AZIZA Administration Sodium Chloride 10 ml 04/20/21 21:31 Sodium Chloride 0.9% 10 Ml Flush Syringe IV PRN PRN LINE FLUSH Nutrition/Malnutrition Assess - Dietary Evaluation Nutrition/Malnutrition Findings: Nutrition Notes Start: 04/21/21 12:15 Freq: Status: Active Protocol: Document 05/13/21 15:36 [facility] (Rec: 05/13/21 15:47 [facility] [id number]) Nutrition Notes Initial or Follow up Reassessment Current Diagnosis Sepsis,Respiratory Failure, Stroke Other Pertinent Diagnosis Acute metabolic encephalopathy , pneu, UTI Current Diet NPO Labs/Tests BUN 30 Mg 1.6 Pertinent Medications Mag sulfate x 1 dose Height 5 ft 2 in Weight 72.4 kg [place] Body Weight (kg) 50.00 BMI 29.2 Weight Status Overweight Subjective/Other Information Pt remains on vent support. TF off; pt scheduled for trach and PEG placement today. Unable to place PEG sec to suspected anatomical abnormality. Interventional radiology consulted for PEG placement. Per nephrology, SYED resolving; no indication for HD as VasCath has been removed. Minimum of two criteria No #1 Nutrition Diagnosis Inadequate oral intake Diagnosis Progress(for reassessment Continues documentation) Is patient on ventilator? Yes Is Patient Ambulatory and/or Out of Bed No REE-([facility]-confined to bed) [phone] Calculation Used for Recommendations [facility] Additional Notes Pro needs 1.2-2g/k-145g/ day Fluid needs 1ml/kcal Nutrition Intervention Nutrition Support: When feasible, resume TF, but change formula to Glucerna 1.2 at 50ml/hr with 80ml water flush q4h. Goal #1 Resume TF to meet nutrient needs Follow-Up By: 05/16/21 Additional Comments F/U: PEG placement, TF restart with Glucerna 1.2, vent status
--- NOTE | 2021-05-10 14:46 | Progress Note ---
Assessment and Plan 80 y/o female with altered mental state, severe electrolyte imbalance with presumptive acute renal failure and hypothermia. 05/10/21: Long discussion over phone with POA. Discussed what I felt was prognosis. Per POA, feels best thing to do at this moment is proceed with trach and peg. Will consult surgery for this. Spoke with renal and they feel she likely will not need HD anymore. Will keep catheter at least another 24-36 hours and likely remove sometime tomorrow. Continue daily PSV and other supportive measures. Placement post Trach. 05/09/21: Will reach out to neuro for more help. Read their note this am but need a definite plan. Would like to meet/talk with POA about next steps but need a better idea of what her neuro prognosis is. Continue daily PSV trials. Prognosis overall appears to be very guarded to poor. 05/08/21: Continue supportive measures. HD per renal. Follow up neuro recs tomorrow. Need to start talking with family about next steps but need neuro input. Daily pSV to document failing. 05/07/21: Continue supportive measures. HD per renal. Follow up neuro recs tomorrow. Need to start talking with family about next steps but need neuro input. 05/06/21: Await neurology recs now that LINCOLN Could not be done. Based on neurology note, no direct source for stroke on MRA. Patient was seen on this day and can be confirmed by staff. Not sure why my note did not save. 05/05/21: follow up neurology notes. They are discussing with cards the LINCOLN. Continue vent support. Poor prognosis. 05/04/21: follow up MRA when done. LINCOLN pending. HD per renal. Daily PSV trials as tolerated. Poor prognosis given MRI findings and lack of responsiveness off sedation. 05/03/21: Follow up Neurology recs for today. Attempt PSV trials. HD on yesterday. Very very guarded prognosis. 05/02/21: MRI today. Repeat cultures. HD per renal. Once MRI results back will discuss with Neurosurgery to see if anything further should be done. Abx per ID. Overall prognosis is very guarded to poor. 04/29/21: Will reach out to neuro after 24-48 hours post spinal tap pending any change in mentation. If improvement, may need to consider shunt placement. If not, not sure that there is anything they can offer. if they still want MRI, then can obtain. Now spiking temps. Blood cultures and UA. Given time frame in Hospital will place on Vanc and Cefepime. Guarded prognosis. HD per renal. Given anasarca, will ask renal about trying to remove volume. 04/28/21: Will discuss with renal about HD again today. MRI vs LP (large amount). Coags are ok. Will attempt to get at least one of these done today. Patient is still on 80% but sat is 100. Will ask PRINTING SERVICES COORDINATOR about placing ART line today. Wean FiO2 as tolerated. Guarded prognosis. 04/27/21: HD today per renal. Vascath placed and awaiting CXR for conformation of good placement (done and good). Vent weaning as tolerated for sats >88%. ABG in the AM. Will check Coags in the am and hopeful these are stable. Platelets need to above 50K. Would like to do large volume spinal tap to see if this helps with mentation. Will also obtain MRI once oxygen requirement improves. 04/26/21: WIll electively intubate and then obtain MRI. Pending MRI results, will likely order large volume spinal tap to assess if NPH is a factor or not. Guarded prognosis. Electrolytes are improving. 04/25/21: Continue to follow renal recs. Will reach out to POA either today or tomorrow for further updates. Follow up renal recs. Monitor electrolytes and r enal function. Guarded prognosis. 1. Neuro-reached out to neuro surgery, placed consult in regards to CT findings 2. Renal-appreciate help and recs, will follow IV hydration recommendations 3. Blood cultures. Urine was negative 4. Jorge Longo for temp Guarded prognosis CCT 31 minutes. Subjective Date of service: 05/10/21 Principal diagnosis: Acute respiratory failure Interval history: No acute events. Spoke with DINESH and DINESH's sister over the phone today about prognosis and current clinical state. Objective Vital Signs - 12hr 05/10/21 05/10/21 05/10/21 03:00 03:30 03:55 Temperature Pulse Rate 86 77 88 Pulse Rate [ From Monitor] Respiratory 15 14 Rate Blood Pressure 157/69 141/60 141/60 O2 Sat by Pulse 98 97 97 Oximetry 05/10/21 05/10/21 05/10/21 04:00 04:30 05:00 Temperature 98.2 F Pulse Rate 93 H 93 H 92 H Pulse Rate [ From Monitor] Respiratory 17 16 16 Rate Blood Pressure 141/60 171/78 157/94 O2 Sat by Pulse 100 97 98 Oximetry 05/10/21 05/10/21 05/10/21 05:30 06:00 06:30 Temperature Pulse Rate 90 80 88 Pulse Rate [ From Monitor] Respiratory 15 14 15 Rate Blood Pressure 156/73 144/61 156/71 O2 Sat by Pulse 98 96 99 Oximetry 05/10/21 05/10/21 05/10/21 07:00 07:30 08:00 Temperature 99 F Pulse Rate 85 86 84 Pulse Rate [ 91 H From Monitor] Respiratory 23 14 20 Rate Blood Pressure 159/69 150/65 141/68 O2 Sat by Pulse 99 97 99 Oximetry 05/10/21 05/10/21 05/10/21 08:30 09:00 09:28 Temperature Pulse Rate 89 95 H 86 Pulse Rate [ From Monitor] Respiratory 14 16 Rate Blood Pressure 157/75 157/75 167/83 O2 Sat by Pulse 97 98 Oximetry 05/10/21 05/10/21 05/10/21 09:30 10:00 10:30 Temperature Pulse Rate 89 99 H 97 H Pulse Rate [ From Monitor] Respiratory 14 16 17 Rate Blood Pressure 160/82 148/53 135/56 O2 Sat by Pulse 98 96 97 Oximetry 05/10/21 05/10/21 05/10/21 11:00 11:30 12:00 Temperature 98.7 F Pulse Rate 116 H 101 H 98 H Pulse Rate [ 96 H From Monitor] Respiratory 16 14 16 Rate Blood Pressure 134/69 111/51 102/48 O2 Sat by Pulse 95 96 97 Oximetry 05/10/21 05/10/21 05/10/21 12:30 13:00 13:30 Temperature Pulse Rate 97 H 94 H 99 H Pulse Rate [ From Monitor] Respiratory 15 14 15 Rate Blood Pressure 106/58 129/57 129/57 O2 Sat by Pulse 98 99 100 Oximetry 05/10/21 05/10/21 14:00 14:15 Temperature Pulse Rate 91 H Pulse Rate [ From Monitor] Respiratory 14 Rate Blood Pressure 132/62 O2 Sat by Pulse 99 99 Oximetry Constitutional: other (critically ill, somnolent, on vent) Eyes: non-icteric ENT: oropharynx dry Effort: other (tachypneic but not labored) Ascultation: Bilateral: clear Cardiovascular: regular rate and rhythm Gastrointestinal: normoactive bowel sounds Integumentary: normal Extremities: no cyanosis, no edema, pink and warm Neurologic: unable to assess Psychiatric: other (unable to assess) CBC and BMP: 05/10/21 05:00 05/10/21 05:00 ABG, PT/INR, D-dimer: ABG ABG pH 7.487 (7.320-7.450) H 05/02/21 04:34 POC ABG pCO2 35.3 mmHg (32.0-48.0) 05/02/21 04:34 ABG pCO2 31.6 mm Hg 04/21/21 15:47 POC ABG pO2 78.6 mmHg (83-108) L 05/02/21 04:34 ABG pO2 168.1 mm Hg (80.0-90.0) H 04/21/21 15:47 POC ABG HCO3 26.1 05/02/21 04:34 ABG O2 Saturation 96.0 (0-100) 05/02/21 04:34 PT/INR, D-dimer PT 15.3 Sec. (12.2-14.9) H 04/28/21 05:00 INR 1.09 (0.87-1.13) 04/28/21 05:00 Abnormal lab findings: Abnormal Labs 04/20/21 04/20/21 04/20/21 17:10 17:10 17:10 WBC 17.4 H RBC 5.19 H Hgb Hct 46.8 H MCH 27 L RDW 17.2 H Plt Count Seg Neuts % (Manual) 98.0 H Lymphocytes % (Manual) 2.0 L Nucleated RBC % 1.0 H Seg Neutrophils # Man 17.1 H Lymphocytes # (Manual) 0.3 L PT ABG pH POC ABG pCO2 POC ABG pO2 ABG pO2 ABG O2 Saturation ABG Base Excess ABG Hemoglobin ABG Oxyhemoglobin ABG Potassium ABG Chloride ABG Glucose Oxyhemoglobin Carboxyhemoglobin Sodium 173 H* Potassium Chloride 132.9 H Carbon Dioxide 17 L BUN 120 H Creatinine 4.2 H Glucose 762 H* POC Glucose Hemoglobin A1c Lactic Acid Calcium Phosphorus Magnesium 3.80 H Transferrin AST 72 H ALT 63 H Alkaline Phosphatase 148 H Total Creatine Kinase 3697 H CK-MB (CK-2) 36.0 H Serum Total Protein Total Protein Albumin 2.2 L Ecevp-8-Isjcuogup Vfimt-3-Gqerekqvj Gamma Globulins PEP Interpretation HDL Cholesterol TSH Arterial Blood Glucose Arterial Blood Ionized Calcium Urine WBC (Auto) Urine Creatinine Urine Total Protein Crossmatch 04/20/21 04/20/21 04/20/21 17:10 17:10 18:55 WBC RBC Hgb Hct MCH RDW Plt Count Seg Neuts % (Manual) Lymphocytes % (Manual) Nucleated RBC % Seg Neutrophils # Man Lymphocytes # (Manual) PT ABG pH POC ABG pCO2 POC ABG pO2 ABG pO2 ABG O2 Saturation ABG Base Excess ABG Hemoglobin ABG Oxyhemoglobin ABG Potassium ABG Chloride ABG Glucose Oxyhemoglobin Carboxyhemoglobin Sodium Potassium Chloride Carbon Dioxide BUN Creatinine Glucose POC Glucose 574 H Hemoglobin A1c Lactic Acid 2.60 H* Calcium Phosphorus Magnesium Transferrin AST ALT Alkaline Phosphatase Total Creatine Kinase CK-MB (CK-2) Serum Total Protein Total Protein Albumin Qpytc-6-Jcwftmcps Ncxpc-8-Kkssbhhwr Gamma Globulins PEP Interpretation HDL Cholesterol TSH 6.040 H Arterial Blood Glucose Arterial Blood Ionized Calcium Urine WBC (Auto) Urine Creatinine Urine Total Protein Crossmatch 04/20/21 04/20/21 04/20/21 22:12 22:58 22:58 WBC RBC Hgb Hct MCH RDW Plt Count Seg Neuts % (Manual) Lymphocytes % (Manual) Nucleated RBC % Seg Neutrophils # Man Lymphocytes # (Manual) PT ABG pH POC ABG pCO2 POC ABG pO2 ABG pO2 ABG O2 Saturation ABG Base Excess ABG Hemoglobin ABG Oxyhemoglobin ABG Potassium ABG Chloride ABG Glucose Oxyhemoglobin Carboxyhemoglobin Sodium 172 H* Potassium 3.2 L Chloride 134.2 H Carbon Dioxide 17 L BUN 112 H Creatinine 3.8 H Glucose 803 H* POC Glucose 554 H Hemoglobin A1c Lactic Acid Calcium 8.3 L Phosphorus Magnesium 3.50 H Transferrin AST ALT Alkaline Phosphatase Total Creatine Kinase CK-MB (CK-2) Serum Total Protein Total Protein Albumin Hcqky-9-Kopzgomvs Llunx-5-Uvxadcssm Gamma Globulins PEP Interpretation HDL Cholesterol TSH Arterial Blood Glucose Arterial Blood Ionized Calcium Urine WBC (Auto) Urine Creatinine Urine Total Protein Crossmatch 04/21/21 04/21/21 04/21/21 00:14 00:22 02:01 WBC RBC Hgb Hct MCH RDW Plt Count Seg Neuts % (Manual) Lymphocytes % (Manual) Nucleated RBC % Seg Neutrophils # Man Lymphocytes # (Manual) PT ABG pH POC ABG pCO2 POC ABG pO2 ABG pO2 ABG O2 Saturation ABG Base Excess ABG Hemoglobin ABG Oxyhemoglobin ABG Potassium ABG Chloride ABG Glucose Oxyhemoglobin Carboxyhemoglobin Sodium 176 H* 175 H* Potassium 2.9 L* 3.0 L Chloride 139.9 H 136.2 H Carbon Dioxide 17 L 19 L BUN 113 H 112 H Creatinine 3.9 H 3.6 H Glucose 729 H* 582 H* POC Glucose > 600 H Hemoglobin A1c Lactic Acid Calcium Phosphorus Magnesium Transferrin AST ALT Alkaline Phosphatase Total Creatine Kinase CK-MB (CK-2) Serum Total Protein Total Protein Albumin Myzdo-6-Cavhpyjpo Xnois-1-Fsbwkkusa Gamma Globulins PEP Interpretation HDL Cholesterol TSH Arterial Blood Glucose Arterial Blood Ionized Calcium Urine WBC (Auto) Urine Creatinine Urine Total Protein Crossmatch 04/21/21 04/21/21 04/21/21 03:11 03:20 03:41 WBC 14.1 H RBC Hgb Hct MCH 27 L RDW 16.8 H Plt Count 114 L Seg Neuts % (Manual) 97.0 H Lymphocytes % (Manual) 3.0 L Nucleated RBC % 1.0 H Seg Neutrophils # Man 13.7 H Lymphocytes # (Manual) 0.4 L PT ABG pH POC ABG pCO2 POC ABG pO2 ABG pO2 52.3 L ABG O2 Saturation 84.5 L ABG Base Excess -2.9 L ABG Hemoglobin ABG Oxyhemoglobin ABG Potassium ABG Chloride ABG Glucose Oxyhemoglobin 82.9 L Carboxyhemoglobin Sodium Potassium Chloride Carbon Dioxide BUN Creatinine Glucose POC Glucose 404 H Hemoglobin A1c Lactic Acid Calcium Phosphorus Magnesium Transferrin AST ALT Alkaline Phosphatase Total Creatine Kinase CK-MB (CK-2) Serum Total Protein Total Protein Albumin Nmewg-6-Lfoivnytu Uswsb-9-Vgebrgcoh Gamma Globulins PEP Interpretation HDL Cholesterol TSH Arterial Blood Glucose Arterial Blood Ionized Calcium Urine WBC (Auto) Urine Creatinine Urine Total Protein Crossmatch 04/21/21 04/21/21 04/21/21 03:41 04:24 05:45 WBC RBC Hgb Hct MCH RDW Plt Count Seg Neuts % (Manual) Lymphocytes % (Manual) Nucleated RBC % Seg Neutrophils # Man Lymphocytes # (Manual) PT ABG pH POC ABG pCO2 POC ABG pO2 ABG pO2 ABG O2 Saturation ABG Base Excess ABG Hemoglobin ABG Oxyhemoglobin ABG Potassium ABG Chloride ABG Glucose Oxyhemoglobin Carboxyhemoglobin Sodium 179 H* Potassium 2.9 L* Chloride 138.2 H Carbon Dioxide 20 L BUN 111 H Creatinine 3.7 H Glucose 465 H POC Glucose 353 H 280 H Hemoglobin A1c Lactic Acid Calcium Phosphorus Magnesium Transferrin AST 73 H ALT 61 H Alkaline Phosphatase 144 H Total Creatine Kinase CK-MB (CK-2) Serum Total Protein Total Protein Albumin 2.5 L Dykev-5-Aluvnfgkr Dkyzo-8-Uxmncbtrw Gamma Globulins PEP Interpretation HDL Cholesterol TSH Arterial Blood Glucose Arterial Blood Ionized Calcium Urine WBC (Auto) Urine Creatinine Urine Total Protein Crossmatch 04/21/21 04/21/21 04/21/21 06:47 08:01 11:11 WBC RBC Hgb Hct MCH RDW Plt Count Seg Neuts % (Manual) Lymphocytes % (Manual) Nucleated RBC % Seg Neutrophils # Man Lymphocytes # (Manual) PT ABG pH POC ABG pCO2 POC ABG pO2 ABG pO2 ABG O2 Saturation ABG Base Excess ABG Hemoglobin ABG Oxyhemoglobin ABG Potassium ABG Chloride ABG Glucose Oxyhemoglobin Carboxyhemoglobin Sodium Potassium Chloride Carbon Dioxide BUN Creatinine Glucose POC Glucose 260 H 68 L Hemoglobin A1c Lactic Acid Calcium Phosphorus Magnesium Transferrin AST ALT Alkaline Phosphatase Total Creatine Kinase CK-MB (CK-2) Serum Total Protein Total Protein Albumin Vteko-3-Mleapqfyz Lnqlu-3-Lwfemomtp Gamma Globulins PEP Interpretation HDL Cholesterol TSH Arterial Blood Glucose Arterial Blood Ionized Calcium Urine WBC (Auto) Urine Creatinine 44.3 H Urine Total Protein 12 H Crossmatch 04/21/21 04/21/21 04/21/21 12:51 13:41 14:40 WBC RBC Hgb Hct MCH RDW Plt Count Seg Neuts % (Manual) Lymphocytes % (Manual) Nucleated RBC % Seg Neutrophils # Man Lymphocytes # (Manual) PT ABG pH 7.275 L POC ABG pCO2 POC ABG pO2 63.4 L ABG pO2 ABG O2 Saturation ABG Base Excess ABG Hemoglobin 8.4 L ABG Oxyhemoglobin 89.5 L ABG Potassium ABG Chloride 108.0 H ABG Glucose 404 H Oxyhemoglobin Carboxyhemoglobin Sodium Potassium Chloride Carbon Dioxide BUN Creatinine Glucose POC Glucose 146 H 186 H Hemoglobin A1c Lactic Acid Calcium Phosphorus Magnesium Transferrin AST ALT Alkaline Phosphatase Total Creatine Kinase CK-MB (CK-2) Serum Total Protein Total Protein Albumin Pppjk-6-Kdkjbcigy Huswo-5-Ixbheqsjw Gamma Globulins PEP Interpretation HDL Cholesterol TSH Arterial Blood Glucose 404 H Arterial Blood Ionized Calcium Urine WBC (Auto) Urine Creatinine Urine Total Protein Crossmatch 04/21/21 04/21/21 04/21/21 15:47 16:25 17:57 WBC RBC Hgb Hct MCH RDW Plt Count Seg Neuts % (Manual) Lymphocytes % (Manual) Nucleated RBC % Seg Neutrophils # Man Lymphocytes # (Manual) PT ABG pH 7.486 H POC ABG pCO2 POC ABG pO2 ABG pO2 168.1 H ABG O2 Saturation 99.1 H ABG Base Excess ABG Hemoglobin 8.9 L ABG Oxyhemoglobin ABG Potassium ABG Chloride ABG Glucose Oxyhemoglobin Carboxyhemoglobin Sodium Potassium Chloride Carbon Dioxide BUN Creatinine Glucose POC Glucose 172 H 143 H Hemoglobin A1c Lactic Acid Calcium Phosphorus Magnesium Transferrin AST ALT Alkaline Phosphatase Total Creatine Kinase CK-MB (CK-2) Serum Total Protein Total Protein Albumin Kvqha-2-Btwiukbsg Eoxjc-1-Vtvthidjl Gamma Globulins PEP Interpretation HDL Cholesterol TSH Arterial Blood Glucose Arterial Blood Ionized Calcium Urine WBC (Auto) Urine Creatinine Urine Total Protein Crossmatch 04/21/21 04/21/21 04/21/21 18:49 19:10 20:26 WBC RBC Hgb Hct MCH RDW Plt Count Seg Neuts % (Manual) Lymphocytes % (Manual) Nucleated RBC % Seg Neutrophils # Man Lymphocytes # (Manual) PT ABG pH POC ABG pCO2 POC ABG pO2 ABG pO2 ABG O2 Saturation ABG Base Excess ABG Hemoglobin ABG Oxyhemoglobin ABG Potassium ABG Chloride ABG Glucose Oxyhemoglobin Carboxyhemoglobin Sodium 174 H* Potassium 7.2 H* D Chloride 138.2 H Carbon Dioxide 21 L BUN 99 H Creatinine 4.0 H Glucose 157 H POC Glucose 126 H 190 H Hemoglobin A1c Lactic Acid Calcium Phosphorus Magnesium Transferrin AST 134 H ALT 71 H Alkaline Phosphatase 135 H Total Creatine Kinase 3504 H CK-MB (CK-2) Serum Total Protein Total Protein Albumin 2.2 L Tnfqw-5-Lltlkncmn Hutsm-4-Vuexgeeps Gamma Globulins PEP Interpretation HDL Cholesterol TSH Arterial Blood Glucose Arterial Blood Ionized Calcium Urine WBC (Auto) Urine Creatinine Urine Total Protein Crossmatch 04/21/21 04/21/21 04/21/21 20:53 21:52 22:55 WBC RBC Hgb Hct MCH RDW Plt Count Seg Neuts % (Manual) Lymphocytes % (Manual) Nucleated RBC % Seg Neutrophils # Man Lymphocytes # (Manual) PT ABG pH POC ABG pCO2 POC ABG pO2 ABG pO2 ABG O2 Saturation ABG Base Excess ABG Hemoglobin ABG Oxyhemoglobin ABG Potassium ABG Chloride ABG Glucose Oxyhemoglobin Carboxyhemoglobin Sodium Potassium Chloride Carbon Dioxide BUN Creatinine Glucose POC Glucose 116 H 135 H 158 H Hemoglobin A1c Lactic Acid Calcium Phosphorus Magnesium Transferrin AST ALT Alkaline Phosphatase Total Creatine Kinase CK-MB (CK-2) Serum Total Protein Total Protein Albumin Bodqa-7-Bqfjnskve Jrimv-9-Gliukvgjv Gamma Globulins PEP Interpretation HDL Cholesterol TSH Arterial Blood Glucose Arterial Blood Ionized Calcium Urine WBC (Auto) Urine Creatinine Urine Total Protein Crossmatch 04/21/21 04/22/21 04/22/21 23:00 00:01 00:39 WBC RBC Hgb Hct MCH RDW Plt Count Seg Neuts % (Manual) Lymphocytes % (Manual) Nucleated RBC % Seg Neutrophils # Man Lymphocytes # (Manual) PT ABG pH POC ABG pCO2 POC ABG pO2 ABG pO2 ABG O2 Saturation ABG Base Excess ABG Hemoglobin ABG Oxyhemoglobin ABG Potassium ABG Chloride ABG Glucose Oxyhemoglobin Carboxyhemoglobin Sodium 176 H* 171 H* Potassium Chloride 140.0 H Carbon Dioxide 20 L BUN 98 H Creatinine 3.9 H Glucose 206 H POC Glucose 182 H Hemoglobin A1c Lactic Acid Calcium Phosphorus Magnesium Transferrin AST ALT Alkaline Phosphatase Total Creatine Kinase 3240 H CK-MB (CK-2) Serum Total Protein Total Protein Albumin Mhyio-0-Jxfljtolo Hpayz-1-Zyjqrhmbn Gamma Globulins PEP Interpretation HDL Cholesterol TSH Arterial Blood Glucose Arterial Blood Ionized Calcium Urine WBC (Auto) Urine Creatinine Urine Total Protein Crossmatch 04/22/21 04/22/21 04/22/21 00:58 01:04 04:52 WBC 11.2 H RBC Hgb Hct 44.3 H MCH 27 L RDW 17.1 H Plt Count 86 L Seg Neuts % (Manual) 86.0 H Lymphocytes % (Manual) 13.0 L Nucleated RBC % Seg Neutrophils # Man 9.6 H Lymphocytes # (Manual) PT ABG pH POC ABG pCO2 POC ABG pO2 ABG pO2 ABG O2 Saturation ABG Base Excess ABG Hemoglobin ABG Oxyhemoglobin ABG Potassium ABG Chloride ABG Glucose Oxyhemoglobin Carboxyhemoglobin Sodium Potassium Chloride Carbon Dioxide BUN Creatinine Glucose POC Glucose 176 H 143 H Hemoglobin A1c Lactic Acid Calcium Phosphorus Magnesium Transferrin AST ALT Alkaline Phosphatase Total Creatine Kinase CK-MB (CK-2) Serum Total Protein Total Protein Albumin Fwwjz-0-Dlwkyotrd Tiiti-4-Vjwyvnjcv Gamma Globulins PEP Interpretation HDL Cholesterol TSH Arterial Blood Glucose Arterial Blood Ionized Calcium Urine WBC (Auto) Urine Creatinine Urine Total Protein Crossmatch 04/22/21 04/22/21 04/22/21 06:07 06:09 07:18 WBC RBC Hgb Hct MCH RDW Plt Count Seg Neuts % (Manual) Lymphocytes % (Manual) Nucleated RBC % Seg Neutrophils # Man Lymphocytes # (Manual) PT ABG pH POC ABG pCO2 POC ABG pO2 ABG pO2 ABG O2 Saturation ABG Base Excess ABG Hemoglobin ABG Oxyhemoglobin ABG Potassium ABG Chloride ABG Glucose Oxyhemoglobin Carboxyhemoglobin Sodium Potassium Chloride Carbon Dioxide BUN Creatinine Glucose POC Glucose 206 H 163 H 158 H Hemoglobin A1c Lactic Acid Calcium Phosphorus Magnesium Transferrin AST ALT Alkaline Phosphatase Total Creatine Kinase CK-MB (CK-2) Serum Total Protein Total Protein Albumin Mlzyf-2-Wtdkzhlbt Nywrq-2-Vishsxorr Gamma Globulins PEP Interpretation HDL Cholesterol TSH Arterial Blood Glucose Arterial Blood Ionized Calcium Urine WBC (Auto) Urine Creatinine Urine Total Protein Crossmatch 04/22/21 04/22/21 04/22/21 08:59 08:59 08:59 WBC RBC Hgb Hct MCH RDW Plt Count Seg Neuts % (Manual) Lymphocytes % (Manual) Nucleated RBC % Seg Neutrophils # Man Lymphocytes # (Manual) PT ABG pH POC ABG pCO2 POC ABG pO2 ABG pO2 ABG O2 Saturation ABG Base Excess ABG Hemoglobin ABG Oxyhemoglobin ABG Potassium ABG Chloride ABG Glucose Oxyhemoglobin Carboxyhemoglobin Sodium 169 H* Potassium 3.5 L Chloride 134.5 H Carbon Dioxide 20 L BUN 95 H Creatinine 3.6 H Glucose 151 H POC Glucose Hemoglobin A1c Lactic Acid Calcium Phosphorus Magnesium Transferrin AST 121 H ALT 75 H Alkaline Phosphatase 137 H Total Creatine Kinase 3105 H CK-MB (CK-2) Serum Total Protein 5.5 L Total Protein 6.0 L Albumin 2.8 L 2.1 L Xloyo-9-Gyhtsjvdt 0.6 H Zbvdk-4-Vjduqdtxg 1.0 H Gamma Globulins 0.6 L PEP Interpretation see below H HDL Cholesterol TSH Arterial Blood Glucose Arterial Blood Ionized Calcium Urine WBC (Auto) Urine Creatinine Urine Total Protein Crossmatch 04/22/21 04/22/21 04/22/21 09:44 10:24 12:20 WBC RBC Hgb Hct MCH RDW Plt Count Seg Neuts % (Manual) Lymphocytes % (Manual) Nucleated RBC % Seg Neutrophils # Man Lymphocytes # (Manual) PT ABG pH POC ABG pCO2 POC ABG pO2 ABG pO2 ABG O2 Saturation ABG Base Excess ABG Hemoglobin ABG Oxyhemoglobin ABG Potassium ABG Chloride ABG Glucose Oxyhemoglobin Carboxyhemoglobin Sodium Potassium Chloride Carbon Dioxide BUN Creatinine Glucose POC Glucose 107 H 131 H Hemoglobin A1c Lactic Acid Calcium Phosphorus Magnesium 2.80 H Transferrin AST ALT Alkaline Phosphatase Total Creatine Kinase CK-MB (CK-2) Serum Total Protein Total Protein Albumin Vmugr-1-Oaitbezha Lraom-4-Iepyarrlm Gamma Globulins PEP Interpretation HDL Cholesterol TSH Arterial Blood Glucose Arterial Blood Ionized Calcium Urine WBC (Auto) Urine Creatinine Urine Total Protein Crossmatch 04/22/21 04/22/21 04/22/21 13:19 14:16 15:22 WBC RBC Hgb Hct MCH RDW Plt Count Seg Neuts % (Manual) Lymphocytes % (Manual) Nucleated RBC % Seg Neutrophils # Man Lymphocytes # (Manual) PT ABG pH POC ABG pCO2 POC ABG pO2 ABG pO2 ABG O2 Saturation ABG Base Excess ABG Hemoglobin ABG Oxyhemoglobin ABG Potassium ABG Chloride ABG Glucose Oxyhemoglobin Carboxyhemoglobin Sodium Potassium Chloride Carbon Dioxide BUN Creatinine Glucose POC Glucose 147 H 154 H 136 H Hemoglobin A1c Lactic Acid Calcium Phosphorus Magnesium Transferrin AST ALT Alkaline Phosphatase Total Creatine Kinase CK-MB (CK-2) Serum Total Protein Total Protein Albumin Nltny-9-Swdhnaiza Ydhff-5-Vngrhnrjw Gamma Globulins PEP Interpretation HDL Cholesterol TSH Arterial Blood Glucose Arterial Blood Ionized Calcium Urine WBC (Auto) Urine Creatinine Urine Total Protein Crossmatch 04/22/21 04/22/21 04/22/21 15:55 15:55 16:22 WBC RBC Hgb Hct MCH RDW Plt Count Seg Neuts % (Manual) Lymphocytes % (Manual) Nucleated RBC % Seg Neutrophils # Man Lymphocytes # (Manual) PT ABG pH POC ABG pCO2 POC ABG pO2 ABG pO2 ABG O2 Saturation ABG Base Excess ABG Hemoglobin ABG Oxyhemoglobin ABG Potassium ABG Chloride ABG Glucose Oxyhemoglobin Carboxyhemoglobin Sodium 169 H* Potassium Chloride 133.5 H Carbon Dioxide 19 L BUN 94 H Creatinine 3.8 H Glucose 150 H POC Glucose 140 H Hemoglobin A1c 17.1 H Lactic Acid Calcium Phosphorus Magnesium Transferrin AST ALT Alkaline Phosphatase Total Creatine Kinase CK-MB (CK-2) Serum Total Protein Total Protein Albumin Epody-2-Vqwsimrgp Nvtds-2-Mgfmsbopy Gamma Globulins PEP Interpretation HDL Cholesterol TSH Arterial Blood Glucose Arterial Blood Ionized Calcium Urine WBC (Auto) Urine Creatinine Urine Total Protein Crossmatch 04/22/21 04/22/21 04/22/21 18:11 18:26 23:19 WBC RBC Hgb Hct MCH RDW Plt Count Seg Neuts % (Manual) Lymphocytes % (Manual) Nucleated RBC % Seg Neutrophils # Man Lymphocytes # (Manual) PT ABG pH POC ABG pCO2 POC ABG pO2 ABG pO2 ABG O2 Saturation ABG Base Excess ABG Hemoglobin ABG Oxyhemoglobin ABG Potassium ABG Chloride ABG Glucose Oxyhemoglobin Carboxyhemoglobin Sodium Potassium Chloride Carbon Dioxide BUN Creatinine Glucose POC Glucose 146 H 188 H Hemoglobin A1c Lactic Acid Calcium Phosphorus Magnesium Transferrin AST ALT Alkaline Phosphatase Total Creatine Kinase 2497 H CK-MB (CK-2) Serum Total Protein Total Protein Albumin Snrrh-2-Twedclivi Ahvqk-9-Xlxuzraie Gamma Globulins PEP Interpretation HDL Cholesterol TSH Arterial Blood Glucose Arterial Blood Ionized Calcium Urine WBC (Auto) Urine Creatinine Urine Total Protein Crossmatch 04/23/21 04/23/21 04/23/21 00:27 05:23 07:50 WBC RBC Hgb Hct MCH RDW Plt Count Seg Neuts % (Manual) Lymphocytes % (Manual) Nucleated RBC % Seg Neutrophils # Man Lymphocytes # (Manual) PT ABG pH POC ABG pCO2 POC ABG pO2 ABG pO2 ABG O2 Saturation ABG Base Excess ABG Hemoglobin ABG Oxyhemoglobin ABG Potassium ABG Chloride ABG Glucose Oxyhemoglobin Carboxyhemoglobin Sodium 162 H* Potassium Chloride Carbon Dioxide BUN Creatinine Glucose POC Glucose 212 H 239 H Hemoglobin A1c Lactic Acid Calcium Phosphorus Magnesium Transferrin AST ALT Alkaline Phosphatase Total Creatine Kinase CK-MB (CK-2) Serum Total Protein Total Protein Albumin Ijgom-0-Zukkwucpe Uyygo-8-Bbtuljqvv Gamma Globulins PEP Interpretation HDL Cholesterol TSH Arterial Blood Glucose Arterial Blood Ionized Calcium Urine WBC (Auto) Urine Creatinine Urine Total Protein Crossmatch 04/23/21 04/23/21 04/23/21 08:13 08:13 08:13 WBC 11.9 H RBC Hgb Hct MCH 26 L RDW 16.5 H Plt Count 72 L Seg Neuts % (Manual) 80.0 H Lymphocytes % (Manual) 5.0 L Nucleated RBC % Seg Neutrophils # Man 9.5 H Lymphocytes # (Manual) 0.6 L PT ABG pH POC ABG pCO2 POC ABG pO2 ABG pO2 ABG O2 Saturation ABG Base Excess ABG Hemoglobin ABG Oxyhemoglobin ABG Potassium ABG Chloride ABG Glucose Oxyhemoglobin Carboxyhemoglobin Sodium 164 H* Potassium Chloride 128.0 H Carbon Dioxide 21 L BUN 93 H Creatinine 3.8 H Glucose 293 H POC Glucose Hemoglobin A1c Lactic Acid Calcium Phosphorus Magnesium Transferrin AST 99 H ALT 70 H Alkaline Phosphatase 147 H Total Creatine Kinase 1803 H CK-MB (CK-2) Serum Total Protein Total Protein 6.1 L Albumin 2.0 L Nnpyp-8-Wdwvpnkpv Bvovw-4-Ygebfaxla Gamma Globulins PEP Interpretation HDL Cholesterol TSH Arterial Blood Glucose Arterial Blood Ionized Calcium Urine WBC (Auto) Urine Creatinine Urine Total Protein Crossmatch 04/23/21 04/23/21 04/23/21 12:06 17:35 18:17 WBC RBC Hgb Hct MCH RDW Plt Count Seg Neuts % (Manual) Lymphocytes % (Manual) Nucleated RBC % Seg Neutrophils # Man Lymphocytes # (Manual) PT ABG pH POC ABG pCO2 POC ABG pO2 ABG pO2 ABG O2 Saturation ABG Base Excess ABG Hemoglobin ABG Oxyhemoglobin ABG Potassium ABG Chloride ABG Glucose Oxyhemoglobin Carboxyhemoglobin Sodium 160 H Potassium Chloride Carbon Dioxide BUN Creatinine Glucose POC Glucose 311 H 370 H Hemoglobin A1c Lactic Acid Calcium Phosphorus Magnesium Transferrin AST ALT Alkaline Phosphatase Total Creatine Kinase CK-MB (CK-2) Serum Total Protein Total Protein Albumin Tqqdz-2-Zqezflhvl Vvebz-4-Volxlinmi Gamma Globulins PEP Interpretation HDL Cholesterol TSH Arterial Blood Glucose Arterial Blood Ionized Calcium Urine WBC (Auto) Urine Creatinine Urine Total Protein Crossmatch 04/24/21 04/24/21 04/24/21 02:13 06:00 06:00 WBC RBC Hgb Hct MCH 27 L RDW 17.0 H Plt Count 58 L Seg Neuts % (Manual) Lymphocytes % (Manual) 2.0 L Nucleated RBC % Seg Neutrophils # Man 8.9 H Lymphocytes # (Manual) 0.2 L PT ABG pH POC ABG pCO2 POC ABG pO2 ABG pO2 ABG O2 Saturation ABG Base Excess ABG Hemoglobin ABG Oxyhemoglobin ABG Potassium ABG Chloride ABG Glucose Oxyhemoglobin Carboxyhemoglobin Sodium 160 H Potassium Chloride Carbon Dioxide BUN Creatinine Glucose POC Glucose Hemoglobin A1c Lactic Acid Calcium Phosphorus Magnesium 2.90 H Transferrin AST ALT Alkaline Phosphatase Total Creatine Kinase CK-MB (CK-2) Serum Total Protein Total Protein Albumin Tcfac-4-Astpfpnww Lgfvp-6-Iukgjlkhk Gamma Globulins PEP Interpretation HDL Cholesterol TSH Arterial Blood Glucose Arterial Blood Ionized Calcium Urine WBC (Auto) Urine Creatinine Urine Total Protein Crossmatch 04/24/21 04/24/21 04/24/21 07:46 08:15 11:34 WBC RBC Hgb Hct MCH RDW Plt Count Seg Neuts % (Manual) Lymphocytes % (Manual) Nucleated RBC % Seg Neutrophils # Man Lymphocytes # (Manual) PT ABG pH POC ABG pCO2 POC ABG pO2 ABG pO2 ABG O2 Saturation ABG Base Excess ABG Hemoglobin ABG Oxyhemoglobin ABG Potassium ABG Chloride ABG Glucose Oxyhemoglobin Carboxyhemoglobin Sodium 159 H Potassium Chloride 125.6 H Carbon Dioxide 19 L BUN 94 H Creatinine 3.7 H Glucose 514 H* POC Glucose 395 H 422 H Hemoglobin A1c Lactic Acid Calcium Phosphorus Magnesium Transferrin AST ALT 61 H Alkaline Phosphatase 155 H Total Creatine Kinase CK-MB (CK-2) Serum Total Protein Total Protein 6.1 L Albumin 1.5 L Epkqm-0-Zitndwyss Usvly-3-Ctnyafuba Gamma Globulins PEP Interpretation HDL Cholesterol TSH Arterial Blood Glucose Arterial Blood Ionized Calcium Urine WBC (Auto) Urine Creatinine Urine Total Protein Crossmatch 04/24/21 04/24/21 04/24/21 13:11 14:01 15:03 WBC RBC Hgb Hct MCH RDW Plt Count Seg Neuts % (Manual) Lymphocytes % (Manual) Nucleated RBC % Seg Neutrophils # Man Lymphocytes # (Manual) PT ABG pH POC ABG pCO2 POC ABG pO2 ABG pO2 ABG O2 Saturation ABG Base Excess ABG Hemoglobin ABG Oxyhemoglobin ABG Potassium ABG Chloride ABG Glucose Oxyhemoglobin Carboxyhemoglobin Sodium Potassium Chloride Carbon Dioxide BUN Creatinine Glucose POC Glucose 384 H 423 H 418 H Hemoglobin A1c Lactic Acid Calcium Phosphorus Magnesium Transferrin AST ALT Alkaline Phosphatase Total Creatine Kinase CK-MB (CK-2) Serum Total Protein Total Protein Albumin Spmbv-7-Qlugxtfqu Encdp-7-Zpcnjfoza Gamma Globulins PEP Interpretation HDL Cholesterol TSH Arterial Blood Glucose Arterial Blood Ionized Calcium Urine WBC (Auto) Urine Creatinine Urine Total Protein Crossmatch 04/24/21 04/24/21 04/24/21 17:29 18:28 19:41 WBC RBC Hgb Hct MCH RDW Plt Count Seg Neuts % (Manual) Lymphocytes % (Manual) Nucleated RBC % Seg Neutrophils # Man Lymphocytes # (Manual) PT ABG pH POC ABG pCO2 POC ABG pO2 ABG pO2 ABG O2 Saturation ABG Base Excess ABG Hemoglobin ABG Oxyhemoglobin ABG Potassium ABG Chloride ABG Glucose Oxyhemoglobin Carboxyhemoglobin Sodium Potassium Chloride Carbon Dioxide BUN Creatinine Glucose POC Glucose 335 H 321 H Hemoglobin A1c Lactic Acid Calcium Phosphorus Magnesium Transferrin 112 L AST ALT Alkaline Phosphatase Total Creatine Kinase CK-MB (CK-2) Serum Total Protein Total Protein Albumin Rbyba-5-Dswyuyqpw Keqli-6-Rsvwgbcoq Gamma Globulins PEP Interpretation HDL Cholesterol TSH Arterial Blood Glucose Arterial Blood Ionized Calcium Urine WBC (Auto) Urine Creatinine Urine Total Protein Crossmatch 04/24/21 04/25/21 04/25/21 22:33 01:28 02:28 WBC RBC Hgb Hct MCH RDW Plt Count Seg Neuts % (Manual) Lymphocytes % (Manual) Nucleated RBC % Seg Neutrophils # Man Lymphocytes # (Manual) PT ABG pH POC ABG pCO2 POC ABG pO2 ABG pO2 ABG O2 Saturation ABG Base Excess ABG Hemoglobin ABG Oxyhemoglobin ABG Potassium ABG Chloride ABG Glucose Oxyhemoglobin Carboxyhemoglobin Sodium Potassium Chloride Carbon Dioxide BUN Creatinine Glucose POC Glucose 349 H 283 H 247 H Hemoglobin A1c Lactic Acid Calcium Phosphorus Magnesium Transferrin AST ALT Alkaline Phosphatase Total Creatine Kinase CK-MB (CK-2) Serum Total Protein Total Protein Albumin Budto-2-Gugsprrte Xpxqh-5-Xdxgicynf Gamma Globulins PEP Interpretation HDL Cholesterol TSH Arterial Blood Glucose Arterial Blood Ionized Calcium Urine WBC (Auto) Urine Creatinine Urine Total Protein Crossmatch 04/25/21 04/25/21 04/25/21 03:25 04:22 05:40 WBC RBC Hgb Hct MCH RDW Plt Count Seg Neuts % (Manual) Lymphocytes % (Manual) Nucleated RBC % Seg Neutrophils # Man Lymphocytes # (Manual) PT ABG pH POC ABG pCO2 POC ABG pO2 ABG pO2 ABG O2 Saturation ABG Base Excess ABG Hemoglobin ABG Oxyhemoglobin ABG Potassium ABG Chloride ABG Glucose Oxyhemoglobin Carboxyhemoglobin Sodium Potassium Chloride Carbon Dioxide BUN Creatinine Glucose POC Glucose 196 H 207 H 204 H Hemoglobin A1c Lactic Acid Calcium Phosphorus Magnesium Transferrin AST ALT Alkaline Phosphatase Total Creatine Kinase CK-MB (CK-2) Serum Total Protein Total Protein Albumin Bjaar-9-Fckmnwalh Iczqm-9-Wfkfwtmow Gamma Globulins PEP Interpretation HDL Cholesterol TSH Arterial Blood Glucose Arterial Blood Ionized Calcium Urine WBC (Auto) Urine Creatinine Urine Total Protein Crossmatch 04/25/21 04/25/21 04/25/21 05:45 06:43 07:37 WBC RBC Hgb Hct MCH 27 L RDW 17.0 H Plt Count 64 L Seg Neuts % (Manual) 84.0 H Lymphocytes % (Manual) 6.0 L Nucleated RBC % 1.0 H Seg Neutrophils # Man Lymphocytes # (Manual) 0.4 L PT ABG pH POC ABG pCO2 POC ABG pO2 ABG pO2 ABG O2 Saturation ABG Base Excess ABG Hemoglobin ABG Oxyhemoglobin ABG Potassium ABG Chloride ABG Glucose Oxyhemoglobin Carboxyhemoglobin Sodium Potassium Chloride Carbon Dioxide BUN Creatinine Glucose POC Glucose 238 H 201 H Hemoglobin A1c Lactic Acid Calcium Phosphorus Magnesium Transferrin AST ALT Alkaline Phosphatase Total Creatine Kinase CK-MB (CK-2) Serum Total Protein Total Protein Albumin Vqesg-9-Wnedvzzhq Nbpos-0-Ecbirfnit Gamma Globulins PEP Interpretation HDL Cholesterol TSH Arterial Blood Glucose Arterial Blood Ionized Calcium Urine WBC (Auto) Urine Creatinine Urine Total Protein Crossmatch 04/25/21 04/25/21 04/25/21 08:11 08:11 08:41 WBC RBC Hgb Hct MCH RDW Plt Count Seg Neuts % (Manual) Lymphocytes % (Manual) Nucleated RBC % Seg Neutrophils # Man Lymphocytes # (Manual) PT ABG pH POC ABG pCO2 POC ABG pO2 ABG pO2 ABG O2 Saturation ABG Base Excess ABG Hemoglobin ABG Oxyhemoglobin ABG Potassium ABG Chloride ABG Glucose Oxyhemoglobin Carboxyhemoglobin Sodium 148 H D Potassium Chloride 115.7 H Carbon Dioxide 21 L BUN 83 H Creatinine 3.6 H Glucose 247 H POC Glucose 220 H Hemoglobin A1c Lactic Acid Calcium Phosphorus Magnesium 2.50 H Transferrin AST 63 H ALT 62 H Alkaline Phosphatase 143 H Total Creatine Kinase CK-MB (CK-2) Serum Total Protein Total Protein 5.4 L Albumin 1.4 L Tygtv-5-Kvsejzpya Gwhsz-4-Pvqqoikww Gamma Globulins PEP Interpretation HDL Cholesterol TSH Arterial Blood Glucose Arterial Blood Ionized Calcium Urine WBC (Auto) Urine Creatinine Urine Total Protein Crossmatch 04/25/21 04/25/21 04/25/21 09:22 10:31 11:44 WBC RBC Hgb Hct MCH RDW Plt Count Seg Neuts % (Manual) Lymphocytes % (Manual) Nucleated RBC % Seg Neutrophils # Man Lymphocytes # (Manual) PT ABG pH POC ABG pCO2 POC ABG pO2 ABG pO2 ABG O2 Saturation ABG Base Excess ABG Hemoglobin ABG Oxyhemoglobin ABG Potassium ABG Chloride ABG Glucose Oxyhemoglobin Carboxyhemoglobin Sodium Potassium Chloride Carbon Dioxide BUN Creatinine Glucose POC Glucose 228 H 215 H 191 H Hemoglobin A1c Lactic Acid Calcium Phosphorus Magnesium Transferrin AST ALT Alkaline Phosphatase Total Creatine Kinase CK-MB (CK-2) Serum Total Protein Total Protein Albumin Qurbq-1-Iycrcfgop Khpfh-4-Rvbljuemj Gamma Globulins PEP Interpretation HDL Cholesterol TSH Arterial Blood Glucose Arterial Blood Ionized Calcium Urine WBC (Auto) Urine Creatinine Urine Total Protein Crossmatch 04/25/21 04/25/21 04/25/21 12:23 13:48 14:11 WBC RBC Hgb Hct MCH RDW Plt Count Seg Neuts % (Manual) Lymphocytes % (Manual) Nucleated RBC % Seg Neutrophils # Man Lymphocytes # (Manual) PT ABG pH POC ABG pCO2 POC ABG pO2 ABG pO2 ABG O2 Saturation ABG Base Excess ABG Hemoglobin ABG Oxyhemoglobin ABG Potassium ABG Chloride ABG Glucose Oxyhemoglobin Carboxyhemoglobin Sodium Potassium Chloride Carbon Dioxide BUN Creatinine Glucose POC Glucose 229 H 177 H 161 H Hemoglobin A1c Lactic Acid Calcium Phosphorus Magnesium Transferrin AST ALT Alkaline Phosphatase Total Creatine Kinase CK-MB (CK-2) Serum Total Protein Total Protein Albumin Jvkca-9-Emnpmtabe Qcrfd-8-Yelnhevev Gamma Globulins PEP Interpretation HDL Cholesterol TSH Arterial Blood Glucose Arterial Blood Ionized Calcium Urine WBC (Auto) Urine Creatinine Urine Total Protein Crossmatch 04/25/21 04/25/21 04/26/21 18:01 21:31 01:19 WBC RBC Hgb Hct MCH RDW Plt Count Seg Neuts % (Manual) Lymphocytes % (Manual) Nucleated RBC % Seg Neutrophils # Man Lymphocytes # (Manual) PT ABG pH POC ABG pCO2 POC ABG pO2 ABG pO2 ABG O2 Saturation ABG Base Excess ABG Hemoglobin ABG Oxyhemoglobin ABG Potassium ABG Chloride ABG Glucose Oxyhemoglobin Carboxyhemoglobin Sodium Potassium Chloride Carbon Dioxide BUN Creatinine Glucose POC Glucose 264 H 371 H 356 H Hemoglobin A1c Lactic Acid Calcium Phosphorus Magnesium Transferrin AST ALT Alkaline Phosphatase Total Creatine Kinase CK-MB (CK-2) Serum Total Protein Total Protein Albumin Blbmo-8-Mkoypsmgb Lhlcb-6-Yyhshznbb Gamma Globulins PEP Interpretation HDL Cholesterol TSH Arterial Blood Glucose Arterial Blood Ionized Calcium Urine WBC (Auto) Urine Creatinine Urine Total Protein Crossmatch 04/26/21 04/26/21 04/26/21 06:31 09:13 09:33 WBC RBC Hgb Hct MCH 27 L RDW 16.9 H Plt Count 58 L Seg Neuts % (Manual) 77.0 H Lymphocytes % (Manual) 4.0 L Nucleated RBC % 2.0 H Seg Neutrophils # Man Lymphocytes # (Manual) 0.3 L PT ABG pH POC ABG pCO2 POC ABG pO2 ABG pO2 ABG O2 Saturation ABG Base Excess ABG Hemoglobin ABG Oxyhemoglobin ABG Potassium ABG Chloride ABG Glucose Oxyhemoglobin Carboxyhemoglobin Sodium Potassium Chloride Carbon Dioxide BUN Creatinine Glucose POC Glucose 428 H 454 H Hemoglobin A1c Lactic Acid Calcium Phosphorus Magnesium Transferrin AST ALT Alkaline Phosphatase Total Creatine Kinase CK-MB (CK-2) Serum Total Protein Total Protein Albumin Nbbiw-3-Qyivumhsx Cdkif-3-Bjofhmxvt Gamma Globulins PEP Interpretation HDL Cholesterol TSH Arterial Blood Glucose Arterial Blood Ionized Calcium Urine WBC (Auto) Urine Creatinine Urine Total Protein Crossmatch 04/26/21 04/26/21 04/26/21 09:33 09:33 11:00 WBC RBC Hgb Hct MCH RDW Plt Count Seg Neuts % (Manual) Lymphocytes % (Manual) Nucleated RBC % Seg Neutrophils # Man Lymphocytes # (Manual) PT ABG pH 7.281 L POC ABG pCO2 POC ABG pO2 66.4 L ABG pO2 ABG O2 Saturation ABG Base Excess ABG Hemoglobin 10.9 L ABG Oxyhemoglobin 91 L ABG Potassium ABG Chloride ABG Glucose 521 H Oxyhemoglobin Carboxyhemoglobin Sodium Potassium Chloride Carbon Dioxide 19 L BUN 98 H Creatinine 3.8 H Glucose 530 H* POC Glucose Hemoglobin A1c Lactic Acid Calcium 8.1 L Phosphorus 5.60 H D Magnesium Transferrin AST 60 H ALT 72 H Alkaline Phosphatase 168 H Total Creatine Kinase CK-MB (CK-2) Serum Total Protein Total Protein 4.6 L Albumin 1.7 L Csxmt-6-Gmiqhzwhv Jsbyi-6-Spkctrgso Gamma Globulins PEP Interpretation HDL Cholesterol TSH Arterial Blood Glucose 521 H Arterial Blood Ionized Calcium Urine WBC (Auto) Urine Creatinine Urine Total Protein Crossmatch 04/26/21 04/26/21 04/26/21 12:36 15:39 16:18 WBC RBC Hgb Hct MCH RDW Plt Count Seg Neuts % (Manual) Lymphocytes % (Manual) Nucleated RBC % Seg Neutrophils # Man Lymphocytes # (Manual) PT ABG pH 7.275 L POC ABG pCO2 POC ABG pO2 63.4 L ABG pO2 ABG O2 Saturation ABG Base Excess ABG Hemoglobin 8.4 L ABG Oxyhemoglobin 89.5 L ABG Potassium ABG Chloride 108.0 H ABG Glucose 404 H Oxyhemoglobin Carboxyhemoglobin Sodium Potassium Chloride Carbon Dioxide BUN Creatinine Glucose POC Glucose 414 H 324 H Hemoglobin A1c Lactic Acid Calcium Phosphorus Magnesium Transferrin AST ALT Alkaline Phosphatase Total Creatine Kinase CK-MB (CK-2) Serum Total Protein Total Protein Albumin Lopcy-3-Svevodfhu Bmdhz-7-Hqqgmuool Gamma Globulins PEP Interpretation HDL Cholesterol TSH Arterial Blood Glucose 404 H Arterial Blood Ionized Calcium Urine WBC (Auto) Urine Creatinine Urine Total Protein Crossmatch 04/26/21 04/27/21 04/27/21 21:14 00:07 05:47 WBC RBC Hgb Hct MCH RDW Plt Count Seg Neuts % (Manual) Lymphocytes % (Manual) Nucleated RBC % Seg Neutrophils # Man Lymphocytes # (Manual) PT ABG pH POC ABG pCO2 POC ABG pO2 ABG pO2 ABG O2 Saturation ABG Base Excess ABG Hemoglobin ABG Oxyhemoglobin ABG Potassium ABG Chloride ABG Glucose Oxyhemoglobin Carboxyhemoglobin Sodium Potassium Chloride Carbon Dioxide BUN Creatinine Glucose POC Glucose 242 H 282 H 214 H Hemoglobin A1c Lactic Acid Calcium Phosphorus Magnesium Transferrin AST ALT Alkaline Phosphatase Total Creatine Kinase CK-MB (CK-2) Serum Total Protein Total Protein Albumin Wsmtg-5-Kcpblvgww Bdtar-2-Crypuxdxw Gamma Globulins PEP Interpretation HDL Cholesterol TSH Arterial Blood Glucose Arterial Blood Ionized Calcium Urine WBC (Auto) Urine Creatinine Urine Total Protein Crossmatch 04/27/21 04/27/21 04/27/21 06:23 07:43 08:30 WBC RBC Hgb Hct MCH RDW Plt Count Seg Neuts % (Manual) Lymphocytes % (Manual) Nucleated RBC % Seg Neutrophils # Man Lymphocytes # (Manual) PT ABG pH 7.309 L POC ABG pCO2 POC ABG pO2 70.6 L ABG pO2 ABG O2 Saturation ABG Base Excess ABG Hemoglobin 9.16 L ABG Oxyhemoglobin 92.4 L ABG Potassium ABG Chloride ABG Glucose Oxyhemoglobin Carboxyhemoglobin Sodium Potassium Chloride 110.1 H Carbon Dioxide 15 L BUN 109 H Creatinine 4.3 H Glucose 218 H POC Glucose 187 H Hemoglobin A1c Lactic Acid Calcium Phosphorus Magnesium Transferrin AST 53 H ALT Alkaline Phosphatase 148 H Total Creatine Kinase 1000 H CK-MB (CK-2) Serum Total Protein Total Protein 5.2 L Albumin 1.2 L Bperc-5-Fltiaxfdn Hqmtz-1-Twwyhklio Gamma Globulins PEP Interpretation HDL Cholesterol TSH Arterial Blood Glucose Arterial Blood Ionized Calcium Urine WBC (Auto) Urine Creatinine Urine Total Protein Crossmatch 04/27/21 04/27/21 04/27/21 11:54 21:08 23:28 WBC RBC Hgb Hct MCH RDW Plt Count Seg Neuts % (Manual) Lymphocytes % (Manual) Nucleated RBC % Seg Neutrophils # Man Lymphocytes # (Manual) PT ABG pH POC ABG pCO2 POC ABG pO2 ABG pO2 ABG O2 Saturation ABG Base Excess ABG Hemoglobin ABG Oxyhemoglobin ABG Potassium ABG Chloride ABG Glucose Oxyhemoglobin Carboxyhemoglobin Sodium Potassium Chloride Carbon Dioxide BUN Creatinine Glucose POC Glucose 147 H 136 H 201 H Hemoglobin A1c Lactic Acid Calcium Phosphorus Magnesium Transferrin AST ALT Alkaline Phosphatase Total Creatine Kinase CK-MB (CK-2) Serum Total Protein Total Protein Albumin Xwxug-4-Mrkucvejf Efgam-8-Mrrzyyjod Gamma Globulins PEP Interpretation HDL Cholesterol TSH Arterial Blood Glucose Arterial Blood Ionized Calcium Urine WBC (Auto) Urine Creatinine Urine Total Protein Crossmatch 04/28/21 04/28/21 04/28/21 04:00 04:00 05:00 WBC 12.6 H RBC 3.59 L Hgb 9.4 L Hct MCH 26 L RDW 16.6 H Plt Count 111 L Seg Neuts % (Manual) Lymphocytes % (Manual) 1.0 L Nucleated RBC % 4.0 H Seg Neutrophils # Man 11.6 H Lymphocytes # (Manual) 0.1 L PT 15.3 H ABG pH POC ABG pCO2 POC ABG pO2 ABG pO2 ABG O2 Saturation ABG Base Excess ABG Hemoglobin ABG Oxyhemoglobin ABG Potassium ABG Chloride ABG Glucose Oxyhemoglobin Carboxyhemoglobin Sodium 147 H Potassium 3.5 L D Chloride Carbon Dioxide BUN 79 H Creatinine 3.8 H Glucose 194 H POC Glucose Hemoglobin A1c Lactic Acid Calcium 8.1 L Phosphorus Magnesium Transferrin AST ALT Alkaline Phosphatase Total Creatine Kinase CK-MB (CK-2) Serum Total Protein Total Protein Albumin Ftetu-5-Nvxqisxum Yvmcz-8-Mhjdphjns Gamma Globulins PEP Interpretation HDL Cholesterol TSH Arterial Blood Glucose Arterial Blood Ionized Calcium Urine WBC (Auto) Urine Creatinine Urine Total Protein Crossmatch 04/28/21 04/28/21 04/28/21 05:08 05:18 11:04 WBC RBC Hgb Hct MCH RDW Plt Count Seg Neuts % (Manual) Lymphocytes % (Manual) Nucleated RBC % Seg Neutrophils # Man Lymphocytes # (Manual) PT ABG pH POC ABG pCO2 POC ABG pO2 66.5 L ABG pO2 ABG O2 Saturation ABG Base Excess ABG Hemoglobin 9.7 L ABG Oxyhemoglobin 92.5 L ABG Potassium 3.2 L ABG Chloride ABG Glucose 200 H Oxyhemoglobin Carboxyhemoglobin Sodium Potassium Chloride Carbon Dioxide BUN Creatinine Glucose POC Glucose 183 H 174 H Hemoglobin A1c Lactic Acid Calcium Phosphorus Magnesium Transferrin AST ALT Alkaline Phosphatase Total Creatine Kinase CK-MB (CK-2) Serum Total Protein Total Protein Albumin Xvrgv-4-Jtjgygxyq Vgunw-6-Xttotzqcu Gamma Globulins PEP Interpretation HDL Cholesterol TSH Arterial Blood Glucose 200 H Arterial Blood Ionized Calcium 4.5 L Urine WBC (Auto) Urine Creatinine Urine Total Protein Crossmatch 04/28/21 04/28/21 04/28/21 17:16 21:14 23:41 WBC RBC Hgb Hct MCH RDW Plt Count Seg Neuts % (Manual) Lymphocytes % (Manual) Nucleated RBC % Seg Neutrophils # Man Lymphocytes # (Manual) PT ABG pH POC ABG pCO2 POC ABG pO2 ABG pO2 ABG O2 Saturation ABG Base Excess ABG Hemoglobin ABG Oxyhemoglobin ABG Potassium ABG Chloride ABG Glucose Oxyhemoglobin Carboxyhemoglobin Sodium Potassium Chloride Carbon Dioxide BUN Creatinine Glucose POC Glucose 135 H 134 H 171 H Hemoglobin A1c Lactic Acid Calcium Phosphorus Magnesium Transferrin AST ALT Alkaline Phosphatase Total Creatine Kinase CK-MB (CK-2) Serum Total Protein Total Protein Albumin Cjqfj-6-Ttjjwhxrp Wiifl-8-Cakodysxx Gamma Globulins PEP Interpretation HDL Cholesterol TSH Arterial Blood Glucose Arterial Blood Ionized Calcium Urine WBC (Auto) Urine Creatinine Urine Total Protein Crossmatch 04/29/21 04/29/21 04/29/21 01:16 04:00 04:00 WBC 13.3 H RBC 3.12 L Hgb 8.3 L Hct 26.2 L MCH 27 L RDW 16.3 H Plt Count 132 L Seg Neuts % (Manual) Lymphocytes % (Manual) Nucleated RBC % Seg Neutrophils # Man Lymphocytes # (Manual) PT ABG pH POC ABG pCO2 POC ABG pO2 ABG pO2 ABG O2 Saturation ABG Base Excess ABG Hemoglobin ABG Oxyhemoglobin ABG Potassium ABG Chloride ABG Glucose Oxyhemoglobin Carboxyhemoglobin Sodium Potassium Chloride Carbon Dioxide BUN 63 H Creatinine 3.4 H Glucose 249 H POC Glucose 236 H Hemoglobin A1c Lactic Acid Calcium 8.2 L Phosphorus Magnesium Transferrin AST 61 H ALT 71 H Alkaline Phosphatase 170 H Total Creatine Kinase CK-MB (CK-2) Serum Total Protein Total Protein 5.1 L Albumin 1.6 L Pbpek-9-Tluccprcb Euksh-8-Bdvfetsrk Gamma Globulins PEP Interpretation HDL Cholesterol TSH Arterial Blood Glucose Arterial Blood Ionized Calcium Urine WBC (Auto) Urine Creatinine Urine Total Protein Crossmatch 04/29/21 04/29/21 04/29/21 11:35 13:30 16:01 WBC RBC Hgb Hct MCH RDW Plt Count Seg Neuts % (Manual) Lymphocytes % (Manual) Nucleated RBC % Seg Neutrophils # Man Lymphocytes # (Manual) PT ABG pH POC ABG pCO2 POC ABG pO2 ABG pO2 ABG O2 Saturation ABG Base Excess ABG Hemoglobin ABG Oxyhemoglobin ABG Potassium ABG Chloride ABG Glucose Oxyhemoglobin Carboxyhemoglobin Sodium Potassium Chloride Carbon Dioxide BUN Creatinine Glucose POC Glucose 320 H 297 H Hemoglobin A1c Lactic Acid Calcium Phosphorus Magnesium Transferrin AST ALT Alkaline Phosphatase Total Creatine Kinase CK-MB (CK-2) Serum Total Protein Total Protein Albumin Jzeyu-7-Hozoohabv Khhzi-7-Mnirxvwcs Gamma Globulins PEP Interpretation HDL Cholesterol TSH Arterial Blood Glucose Arterial Blood Ionized Calcium Urine WBC (Auto) > 182.0 H Urine Creatinine Urine Total Protein Crossmatch 04/29/21 04/29/21 04/30/21 21:58 23:35 04:00 WBC 11.4 H RBC 3.27 L Hgb 8.7 L Hct 27.5 L MCH 27 L RDW 16.6 H Plt Count Seg Neuts % (Manual) Lymphocytes % (Manual) Nucleated RBC % Seg Neutrophils # Man Lymphocytes # (Manual) PT ABG pH POC ABG pCO2 POC ABG pO2 ABG pO2 ABG O2 Saturation ABG Base Excess ABG Hemoglobin ABG Oxyhemoglobin ABG Potassium ABG Chloride ABG Glucose Oxyhemoglobin Carboxyhemoglobin Sodium Potassium Chloride Carbon Dioxide BUN Creatinine Glucose POC Glucose 260 H 254 H Hemoglobin A1c Lactic Acid Calcium Phosphorus Magnesium Transferrin AST ALT Alkaline Phosphatase Total Creatine Kinase CK-MB (CK-2) Serum Total Protein Total Protein Albumin Roefi-0-Dripevdof Lukhr-9-Ylplogthr Gamma Globulins PEP Interpretation HDL Cholesterol TSH Arterial Blood Glucose Arterial Blood Ionized Calcium Urine WBC (Auto) Urine Creatinine Urine Total Protein Crossmatch 04/30/21 04/30/21 04/30/21 04:00 05:17 05:31 WBC RBC Hgb Hct MCH RDW Plt Count Seg Neuts % (Manual) Lymphocytes % (Manual) Nucleated RBC % Seg Neutrophils # Man Lymphocytes # (Manual) PT ABG pH 7.452 H POC ABG pCO2 30.5 L POC ABG pO2 54.5 L ABG pO2 ABG O2 Saturation ABG Base Excess ABG Hemoglobin 10.1 L ABG Oxyhemoglobin 87.4 L ABG Potassium 2.9 L ABG Chloride ABG Glucose 305 H Oxyhemoglobin Carboxyhemoglobin Sodium Potassium 3.1 L Chloride Carbon Dioxide BUN 79 H Creatinine 3.9 H Glucose 275 H POC Glucose 267 H Hemoglobin A1c Lactic Acid Calcium Phosphorus 5.60 H D Magnesium Transferrin AST ALT Alkaline Phosphatase Total Creatine Kinase CK-MB (CK-2) Serum Total Protein Total Protein Albumin Pquoo-7-Ykacsijyl Glgaz-1-Nrongihhx Gamma Globulins PEP Interpretation HDL Cholesterol TSH Arterial Blood Glucose 305 H Arterial Blood Ionized Calcium Urine WBC (Auto) Urine Creatinine Urine Total Protein Crossmatch 04/30/21 04/30/21 04/30/21 12:31 17:50 22:24 WBC RBC Hgb Hct MCH RDW Plt Count Seg Neuts % (Manual) Lymphocytes % (Manual) Nucleated RBC % Seg Neutrophils # Man Lymphocytes # (Manual) PT ABG pH POC ABG pCO2 POC ABG pO2 ABG pO2 ABG O2 Saturation ABG Base Excess ABG Hemoglobin ABG Oxyhemoglobin ABG Potassium ABG Chloride ABG Glucose Oxyhemoglobin Carboxyhemoglobin Sodium Potassium Chloride Carbon Dioxide BUN Creatinine Glucose POC Glucose 259 H 161 H 146 H Hemoglobin A1c Lactic Acid Calcium Phosphorus Magnesium Transferrin AST ALT Alkaline Phosphatase Total Creatine Kinase CK-MB (CK-2) Serum Total Protein Total Protein Albumin Cezop-9-Mwnaafxzk Oniug-9-Mckyxodkt Gamma Globulins PEP Interpretation HDL Cholesterol TSH Arterial Blood Glucose Arterial Blood Ionized Calcium Urine WBC (Auto) Urine Creatinine Urine Total Protein Crossmatch 05/01/21 05/01/21 05/01/21 00:09 03:30 04:00 WBC 12.0 H RBC 3.08 L Hgb 8.1 L Hct 25.6 L MCH 26 L RDW 16.3 H Plt Count Seg Neuts % (Manual) Lymphocytes % (Manual) Nucleated RBC % Seg Neutrophils # Man Lymphocytes # (Manual) PT ABG pH 7.493 H POC ABG pCO2 POC ABG pO2 ABG pO2 ABG O2 Saturation ABG Base Excess ABG Hemoglobin 9.3 L ABG Oxyhemoglobin ABG Potassium ABG Chloride ABG Glucose 167 H Oxyhemoglobin Carboxyhemoglobin 0.4 L Sodium Potassium Chloride Carbon Dioxide BUN Creatinine Glucose POC Glucose 149 H Hemoglobin A1c Lactic Acid Calcium Phosphorus Magnesium Transferrin AST ALT Alkaline Phosphatase Total Creatine Kinase CK-MB (CK-2) Serum Total Protein Total Protein Albumin Altgp-8-Xvdtiesra Rpsjh-6-Ckcktcnfy Gamma Globulins PEP Interpretation HDL Cholesterol TSH Arterial Blood Glucose 167 H Arterial Blood Ionized Calcium Urine WBC (Auto) Urine Creatinine Urine Total Protein Crossmatch 05/01/21 05/01/21 05/01/21 04:00 05:48 11:49 WBC RBC Hgb Hct MCH RDW Plt Count Seg Neuts % (Manual) Lymphocytes % (Manual) Nucleated RBC % Seg Neutrophils # Man Lymphocytes # (Manual) PT ABG pH POC ABG pCO2 POC ABG pO2 ABG pO2 ABG O2 Saturation ABG Base Excess ABG Hemoglobin ABG Oxyhemoglobin ABG Potassium ABG Chloride ABG Glucose Oxyhemoglobin Carboxyhemoglobin Sodium Potassium 3.5 L Chloride Carbon Dioxide BUN 62 H Creatinine 3.3 H Glucose 179 H POC Glucose 197 H 167 H Hemoglobin A1c Lactic Acid Calcium 8.3 L Phosphorus Magnesium Transferrin AST ALT Alkaline Phosphatase Total Creatine Kinase CK-MB (CK-2) Serum Total Protein Total Protein Albumin Icgzr-1-Zmzagwbxn Sqjjr-2-Qibihblnd Gamma Globulins PEP Interpretation HDL Cholesterol TSH Arterial Blood Glucose Arterial Blood Ionized Calcium Urine WBC (Auto) Urine Creatinine Urine Total Protein Crossmatch 05/01/21 05/01/21 05/02/21 16:24 23:25 04:00 WBC 14.2 H RBC 2.61 L Hgb 6.9 L Hct 22.1 L MCH 27 L RDW 16.1 H Plt Count Seg Neuts % (Manual) Lymphocytes % (Manual) Nucleated RBC % Seg Neutrophils # Man Lymphocytes # (Manual) PT ABG pH POC ABG pCO2 POC ABG pO2 ABG pO2 ABG O2 Saturation ABG Base Excess ABG Hemoglobin ABG Oxyhemoglobin ABG Potassium ABG Chloride ABG Glucose Oxyhemoglobin Carboxyhemoglobin Sodium Potassium Chloride Carbon Dioxide BUN Creatinine Glucose POC Glucose 157 H 147 H Hemoglobin A1c Lactic Acid Calcium Phosphorus Magnesium Transferrin AST ALT Alkaline Phosphatase Total Creatine Kinase CK-MB (CK-2) Serum Total Protein Total Protein Albumin Xqsej-9-Yrqyrcqqx Cpzxy-4-Nxdtnadvx Gamma Globulins PEP Interpretation HDL Cholesterol TSH Arterial Blood Glucose Arterial Blood Ionized Calcium Urine WBC (Auto) Urine Creatinine Urine Total Protein Crossmatch 05/02/21 05/02/21 05/02/21 04:00 04:34 05:23 WBC RBC Hgb Hct MCH RDW Plt Count Seg Neuts % (Manual) Lymphocytes % (Manual) Nucleated RBC % Seg Neutrophils # Man Lymphocytes # (Manual) PT ABG pH 7.487 H POC ABG pCO2 POC ABG pO2 78.6 L ABG pO2 ABG O2 Saturation ABG Base Excess ABG Hemoglobin 11.5 L ABG Oxyhemoglobin ABG Potassium ABG Chloride ABG Glucose 122 H Oxyhemoglobin Carboxyhemoglobin Sodium Potassium Chloride Carbon Dioxide BUN 49 H Creatinine 2.8 H Glucose 117 H POC Glucose 119 H Hemoglobin A1c Lactic Acid Calcium Phosphorus Magnesium Transferrin AST ALT Alkaline Phosphatase Total Creatine Kinase CK-MB (CK-2) Serum Total Protein Total Protein Albumin Zatwq-6-Rjvapimfj Pvtuz-6-Lwopjcubf Gamma Globulins PEP Interpretation HDL Cholesterol TSH Arterial Blood Glucose 122 H Arterial Blood Ionized Calcium Urine WBC (Auto) Urine Creatinine Urine Total Protein Crossmatch 05/02/21 05/02/21 05/02/21 12:00 12:04 17:29 WBC RBC Hgb Hct MCH RDW Plt Count Seg Neuts % (Manual) Lymphocytes % (Manual) Nucleated RBC % Seg Neutrophils # Man Lymphocytes # (Manual) PT ABG pH POC ABG pCO2 POC ABG pO2 ABG pO2 ABG O2 Saturation ABG Base Excess ABG Hemoglobin ABG Oxyhemoglobin ABG Potassium ABG Chloride ABG Glucose Oxyhemoglobin Carboxyhemoglobin Sodium Potassium Chloride Carbon Dioxide BUN Creatinine Glucose POC Glucose 115 H 120 H Hemoglobin A1c Lactic Acid Calcium Phosphorus Magnesium Transferrin AST ALT Alkaline Phosphatase Total Creatine Kinase CK-MB (CK-2) Serum Total Protein Total Protein Albumin Wmvkl-1-Sehfbcvii Zunwn-5-Iiajfgpla Gamma Globulins PEP Interpretation HDL Cholesterol TSH Arterial Blood Glucose Arterial Blood Ionized Calcium Urine WBC (Auto) Urine Creatinine Urine Total Protein Crossmatch See Detail 05/02/21 05/03/21 05/03/21 23:36 04:00 04:00 WBC 13.9 H RBC 3.22 L Hgb 8.7 L Hct 27.4 L MCH 27 L RDW 15.8 H Plt Count Seg Neuts % (Manual) Lymphocytes % (Manual) Nucleated RBC % Seg Neutrophils # Man Lymphocytes # (Manual) PT ABG pH POC ABG pCO2 POC ABG pO2 ABG pO2 ABG O2 Saturation ABG Base Excess ABG Hemoglobin ABG Oxyhemoglobin ABG Potassium ABG Chloride ABG Glucose Oxyhemoglobin Carboxyhemoglobin Sodium 146 H Potassium 3.5 L Chloride 107.5 H Carbon Dioxide BUN 40 H Creatinine 2.5 H Glucose 104 H POC Glucose 130 H Hemoglobin A1c Lactic Acid Calcium Phosphorus Magnesium Transferrin AST 53 H ALT Alkaline Phosphatase 149 H Total Creatine Kinase CK-MB (CK-2) Serum Total Protein Total Protein 5.2 L Albumin 1.5 L Yzvbc-8-Cuhnlabof Quqdc-6-Zdeqkrhio Gamma Globulins PEP Interpretation HDL Cholesterol TSH Arterial Blood Glucose Arterial Blood Ionized Calcium Urine WBC (Auto) Urine Creatinine Urine Total Protein Crossmatch 05/03/21 05/04/21 05/04/21 17:26 01:24 04:48 WBC 14.3 H RBC 3.14 L Hgb 8.5 L Hct 26.3 L MCH 27 L RDW 15.8 H Plt Count Seg Neuts % (Manual) Lymphocytes % (Manual) Nucleated RBC % Seg Neutrophils # Man Lymphocytes # (Manual) PT ABG pH POC ABG pCO2 POC ABG pO2 ABG pO2 ABG O2 Saturation ABG Base Excess ABG Hemoglobin ABG Oxyhemoglobin ABG Potassium ABG Chloride ABG Glucose Oxyhemoglobin Carboxyhemoglobin Sodium Potassium Chloride Carbon Dioxide BUN Creatinine Glucose POC Glucose 123 H 146 H Hemoglobin A1c Lactic Acid Calcium Phosphorus Magnesium Transferrin AST ALT Alkaline Phosphatase Total Creatine Kinase CK-MB (CK-2) Serum Total Protein Total Protein Albumin Qzycw-1-Znmagzdac Bgsvj-6-Vpudyyzus Gamma Globulins PEP Interpretation HDL Cholesterol TSH Arterial Blood Glucose Arterial Blood Ionized Calcium Urine WBC (Auto) Urine Creatinine Urine Total Protein Crossmatch 05/04/21 05/04/21 05/04/21 04:48 05:15 11:24 WBC RBC Hgb Hct MCH RDW Plt Count Seg Neuts % (Manual) Lymphocytes % (Manual) Nucleated RBC % Seg Neutrophils # Man Lymphocytes # (Manual) PT ABG pH POC ABG pCO2 POC ABG pO2 ABG pO2 ABG O2 Saturation ABG Base Excess ABG Hemoglobin ABG Oxyhemoglobin ABG Potassium ABG Chloride ABG Glucose Oxyhemoglobin Carboxyhemoglobin Sodium Potassium 3.5 L Chloride Carbon Dioxide BUN 58 H Creatinine 3.4 H Glucose 168 H POC Glucose 162 H 145 H Hemoglobin A1c Lactic Acid Calcium Phosphorus 5.30 H Magnesium Transferrin AST ALT Alkaline Phosphatase Total Creatine Kinase CK-MB (CK-2) Serum Total Protein Total Protein Albumin Xcqjg-0-Zzwenbxvr Lkong-3-Vqfppjclh Gamma Globulins PEP Interpretation HDL Cholesterol 24 L TSH Arterial Blood Glucose Arterial Blood Ionized Calcium Urine WBC (Auto) Urine Creatinine Urine Total Protein Crossmatch 05/04/21 05/04/21 05/05/21 16:01 23:32 04:00 WBC RBC Hgb Hct MCH RDW Plt Count Seg Neuts % (Manual) Lymphocytes % (Manual) Nucleated RBC % Seg Neutrophils # Man Lymphocytes # (Manual) PT ABG pH POC ABG pCO2 POC ABG pO2 ABG pO2 ABG O2 Saturation ABG Base Excess ABG Hemoglobin ABG Oxyhemoglobin ABG Potassium ABG Chloride ABG Glucose Oxyhemoglobin Carboxyhemoglobin Sodium Potassium 3.4 L Chloride Carbon Dioxide BUN 43 H Creatinine 2.7 H Glucose 124 H POC Glucose 148 H 134 H Hemoglobin A1c Lactic Acid Calcium 8.2 L Phosphorus Magnesium Transferrin AST ALT Alkaline Phosphatase Total Creatine Kinase CK-MB (CK-2) Serum Total Protein Total Protein Albumin Auxuj-3-Mhkigeyul Byxwz-2-Lehbxggek Gamma Globulins PEP Interpretation HDL Cholesterol TSH Arterial Blood Glucose Arterial Blood Ionized Calcium Urine WBC (Auto) Urine Creatinine Urine Total Protein Crossmatch 05/05/21 05/06/21 05/06/21 05:14 00:01 04:00 WBC RBC Hgb Hct MCH RDW Plt Count Seg Neuts % (Manual) Lymphocytes % (Manual) Nucleated RBC % Seg Neutrophils # Man Lymphocytes # (Manual) PT ABG pH POC ABG pCO2 POC ABG pO2 ABG pO2 ABG O2 Saturation ABG Base Excess ABG Hemoglobin ABG Oxyhemoglobin ABG Potassium ABG Chloride ABG Glucose Oxyhemoglobin Carboxyhemoglobin Sodium Potassium 3.2 L Chloride Carbon Dioxide BUN 56 H Creatinine 3.0 H Glucose 110 H POC Glucose 120 H 120 H Hemoglobin A1c Lactic Acid Calcium 7.8 L Phosphorus 4.60 H Magnesium Transferrin AST ALT Alkaline Phosphatase Total Creatine Kinase CK-MB (CK-2) Serum Total Protein Total Protein Albumin Qftji-3-Uwgzazcvl Uyltu-4-Ttbjhxcth Gamma Globulins PEP Interpretation HDL Cholesterol TSH Arterial Blood Glucose Arterial Blood Ionized Calcium Urine WBC (Auto) Urine Creatinine Urine Total Protein Crossmatch 05/06/21 05/06/21 05/06/21 04:27 05:15 17:37 WBC RBC 3.03 L Hgb 8.3 L Hct 25.4 L MCH 27 L RDW Plt Count Seg Neuts % (Manual) Lymphocytes % (Manual) Nucleated RBC % Seg Neutrophils # Man Lymphocytes # (Manual) PT ABG pH POC ABG pCO2 POC ABG pO2 ABG pO2 ABG O2 Saturation ABG Base Excess ABG Hemoglobin ABG Oxyhemoglobin ABG Potassium ABG Chloride ABG Glucose Oxyhemoglobin Carboxyhemoglobin Sodium Potassium Chloride Carbon Dioxide BUN Creatinine Glucose POC Glucose 137 H 132 H Hemoglobin A1c Lactic Acid Calcium Phosphorus Magnesium Transferrin AST ALT Alkaline Phosphatase Total Creatine Kinase CK-MB (CK-2) Serum Total Protein Total Protein Albumin Fzvxc-1-Uxywoymos Kegol-1-Ruzgczpex Gamma Globulins PEP Interpretation HDL Cholesterol TSH Arterial Blood Glucose Arterial Blood Ionized Calcium Urine WBC (Auto) Urine Creatinine Urine Total Protein Crossmatch 05/07/21 05/07/21 05/07/21 00:30 04:23 04:23 WBC RBC Hgb Hct MCH RDW Plt Count Seg Neuts % (Manual) Lymphocytes % (Manual) Nucleated RBC % Seg Neutrophils # Man Lymphocytes # (Manual) PT ABG pH POC ABG pCO2 POC ABG pO2 ABG pO2 ABG O2 Saturation ABG Base Excess ABG Hemoglobin ABG Oxyhemoglobin ABG Potassium ABG Chloride ABG Glucose Oxyhemoglobin Carboxyhemoglobin Sodium Potassium 3.4 L Chloride 107.1 H Carbon Dioxide BUN 28 H Creatinine 1.9 H Glucose 165 H POC Glucose 121 H Hemoglobin A1c Lactic Acid Calcium 8.2 L Phosphorus Magnesium 1.60 L Transferrin AST ALT Alkaline Phosphatase Total Creatine Kinase CK-MB (CK-2) Serum Total Protein Total Protein Albumin Jkytb-3-Wklmfghbd Pytkl-1-Hmplzbylm Gamma Globulins PEP Interpretation HDL Cholesterol TSH Arterial Blood Glucose Arterial Blood Ionized Calcium Urine WBC (Auto) Urine Creatinine Urine Total Protein Crossmatch 05/07/21 05/07/21 05/07/21 05:30 11:37 17:28 WBC RBC Hgb Hct MCH RDW Plt Count Seg Neuts % (Manual) Lymphocytes % (Manual) Nucleated RBC % Seg Neutrophils # Man Lymphocytes # (Manual) PT ABG pH POC ABG pCO2 POC ABG pO2 ABG pO2 ABG O2 Saturation ABG Base Excess ABG Hemoglobin ABG Oxyhemoglobin ABG Potassium ABG Chloride ABG Glucose Oxyhemoglobin Carboxyhemoglobin Sodium Potassium Chloride Carbon Dioxide BUN Creatinine Glucose POC Glucose 205 H 148 H 170 H Hemoglobin A1c Lactic Acid Calcium Phosphorus Magnesium Transferrin AST ALT Alkaline Phosphatase Total Creatine Kinase CK-MB (CK-2) Serum Total Protein Total Protein Albumin Ekilg-5-Kgicydxcw Sargc-4-Hpadcqpkv Gamma Globulins PEP Interpretation HDL Cholesterol TSH Arterial Blood Glucose Arterial Blood Ionized Calcium Urine WBC (Auto) Urine Creatinine Urine Total Protein Crossmatch 05/07/21 05/08/21 05/08/21 23:57 05:12 05:12 WBC 11.2 H RBC 3.01 L Hgb 8.2 L Hct 25.5 L MCH 27 L RDW 15.4 H Plt Count Seg Neuts % (Manual) Lymphocytes % (Manual) Nucleated RBC % Seg Neutrophils # Man Lymphocytes # (Manual) PT ABG pH POC ABG pCO2 POC ABG pO2 ABG pO2 ABG O2 Saturation ABG Base Excess ABG Hemoglobin ABG Oxyhemoglobin ABG Potassium ABG Chloride ABG Glucose Oxyhemoglobin Carboxyhemoglobin Sodium Potassium 3.4 L Chloride Carbon Dioxide BUN 37 H Creatinine 2.1 H Glucose 160 H POC Glucose 172 H Hemoglobin A1c Lactic Acid Calcium 8.3 L Phosphorus Magnesium Transferrin AST ALT Alkaline Phosphatase Total Creatine Kinase CK-MB (CK-2) Serum Total Protein Total Protein Albumin Zddlz-1-Qlvnningd Faqna-5-Jitwjvgkx Gamma Globulins PEP Interpretation HDL Cholesterol TSH Arterial Blood Glucose Arterial Blood Ionized Calcium Urine WBC (Auto) Urine Creatinine Urine Total Protein Crossmatch 05/08/21 05/08/21 05/08/21 05:20 09:34 11:35 WBC RBC Hgb Hct MCH RDW Plt Count Seg Neuts % (Manual) Lymphocytes % (Manual) Nucleated RBC % Seg Neutrophils # Man Lymphocytes # (Manual) PT ABG pH POC ABG pCO2 POC ABG pO2 ABG pO2 ABG O2 Saturation ABG Base Excess ABG Hemoglobin ABG Oxyhemoglobin ABG Potassium ABG Chloride ABG Glucose Oxyhemoglobin Carboxyhemoglobin Sodium Potassium Chloride Carbon Dioxide BUN Creatinine Glucose POC Glucose 148 H 208 H Hemoglobin A1c Lactic Acid Calcium Phosphorus Magnesium Transferrin AST ALT Alkaline Phosphatase Total Creatine Kinase CK-MB (CK-2) Serum Total Protein Total Protein Albumin Evtfa-7-Uuqwjacrt Iwkzg-5-Okobdglqc Gamma Globulins PEP Interpretation HDL Cholesterol TSH Arterial Blood Glucose Arterial Blood Ionized Calcium Urine WBC (Auto) Urine Creatinine 56.0 H Urine Total Protein Crossmatch 05/08/21 05/08/21 05/09/21 16:55 23:57 05:30 WBC 12.8 H RBC 2.98 L Hgb 8.1 L Hct 25.4 L MCH 27 L RDW 15.4 H Plt Count Seg Neuts % (Manual) Lymphocytes % (Manual) Nucleated RBC % Seg Neutrophils # Man Lymphocytes # (Manual) PT ABG pH POC ABG pCO2 POC ABG pO2 ABG pO2 ABG O2 Saturation ABG Base Excess ABG Hemoglobin ABG Oxyhemoglobin ABG Potassium ABG Chloride ABG Glucose Oxyhemoglobin Carboxyhemoglobin Sodium Potassium Chloride Carbon Dioxide BUN Creatinine Glucose POC Glucose 179 H 183 H Hemoglobin A1c Lactic Acid Calcium Phosphorus Magnesium Transferrin AST ALT Alkaline Phosphatase Total Creatine Kinase CK-MB (CK-2) Serum Total Protein Total Protein Albumin Zablx-4-Uokfaqdio Jhmlb-5-Rbgqfwaib Gamma Globulins PEP Interpretation HDL Cholesterol TSH Arterial Blood Glucose Arterial Blood Ionized Calcium Urine WBC (Auto) Urine Creatinine Urine Total Protein Crossmatch 05/09/21 05/09/21 05/09/21 05:30 05:31 11:24 WBC RBC Hgb Hct MCH RDW Plt Count Seg Neuts % (Manual) Lymphocytes % (Manual) Nucleated RBC % Seg Neutrophils # Man Lymphocytes # (Manual) PT ABG pH POC ABG pCO2 POC ABG pO2 ABG pO2 ABG O2 Saturation ABG Base Excess ABG Hemoglobin ABG Oxyhemoglobin ABG Potassium ABG Chloride ABG Glucose Oxyhemoglobin Carboxyhemoglobin Sodium 150 H Potassium 3.2 L Chloride 110.2 H Carbon Dioxide BUN 37 H Creatinine 1.8 H Glucose 191 H POC Glucose 120 H 197 H Hemoglobin A1c Lactic Acid Calcium Phosphorus Magnesium Transferrin AST ALT Alkaline Phosphatase Total Creatine Kinase CK-MB (CK-2) Serum Total Protein Total Protein Albumin Zofiv-9-Wffsnqawq Vluyb-3-Lijugjodj Gamma Globulins PEP Interpretation HDL Cholesterol TSH Arterial Blood Glucose Arterial Blood Ionized Calcium Urine WBC (Auto) Urine Creatinine Urine Total Protein Crossmatch 05/09/21 05/09/21 05/10/21 15:49 23:42 05:00 WBC RBC 2.99 L Hgb 8.2 L Hct 25.6 L MCH RDW 15.4 H Plt Count 456 H Seg Neuts % (Manual) Lymphocytes % (Manual) Nucleated RBC % Seg Neutrophils # Man Lymphocytes # (Manual) PT ABG pH POC ABG pCO2 POC ABG pO2 ABG pO2 ABG O2 Saturation ABG Base Excess ABG Hemoglobin ABG Oxyhemoglobin ABG Potassium ABG Chloride ABG Glucose Oxyhemoglobin Carboxyhemoglobin Sodium Potassium Chloride Carbon Dioxide BUN Creatinine Glucose POC Glucose 318 H 152 H Hemoglobin A1c Lactic Acid Calcium Phosphorus Magnesium Transferrin AST ALT Alkaline Phosphatase Total Creatine Kinase CK-MB (CK-2) Serum Total Protein Total Protein Albumin Muhtw-3-Aydqsoyum Cbxru-9-Dyemdhcmg Gamma Globulins PEP Interpretation HDL Cholesterol TSH Arterial Blood Glucose Arterial Blood Ionized Calcium Urine WBC (Auto) Urine Creatinine Urine Total Protein Crossmatch 05/10/21 05/10/21 05/10/21 05:00 05:30 12:08 WBC RBC Hgb Hct MCH RDW Plt Count Seg Neuts % (Manual) Lymphocytes % (Manual) Nucleated RBC % Seg Neutrophils # Man Lymphocytes # (Manual) PT ABG pH POC ABG pCO2 POC ABG pO2 ABG pO2 ABG O2 Saturation ABG Base Excess ABG Hemoglobin ABG Oxyhemoglobin ABG Potassium ABG Chloride ABG Glucose Oxyhemoglobin Carboxyhemoglobin Sodium 148 H Potassium 3.4 L Chloride 110.5 H Carbon Dioxide BUN 36 H Creatinine 1.6 H Glucose 185 H POC Glucose 168 H 193 H Hemoglobin A1c Lactic Acid Calcium Phosphorus Magnesium Transferrin AST ALT Alkaline Phosphatase Total Creatine Kinase CK-MB (CK-2) Serum Total Protein Total Protein Albumin Zfnbl-8-Auljdlkri Ybfub-4-Licxhkred Gamma Globulins PEP Interpretation HDL Cholesterol TSH Arterial Blood Glucose Arterial Blood Ionized Calcium Urine WBC (Auto) Urine Creatinine Urine Total Protein Crossmatch
--- NOTE | 2021-05-10 16:10 | Consultation ---
History of Present Illness Consult date: 05/10/21 Chief complaint: unresponsive needs trach and peg - History of present illness History of present illness: General surgery consulted for trach and peg for a patient who was admitted over two weeks ago with altered mental status and unresponsiveness. 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 Past History Past Medical History: other (Dementia, GERD) Past Surgical History: Other (some sort of pelvic surgery) Social history: other (unable to obtain) Family history: other (unable to obtain) Medications and Allergies Allergies Allergy/AdvReac Type Severity Reaction Status Date / Time No Known Allergies Allergy Unverified 04/20/21 14:35 Active Meds: Active Medications Acetaminophen (Acetaminophen 325 Mg Tab) 650 mg PO Q4H PRN PRN Reason: Pain MILD(1-3)/Fever >100.5/TURCIOS Last Admin: 05/01/21 18:15 Dose: 650 mg Albumin Human (Albumin Human 25% (25 Gm/100 Ml) Inj) 25 gm IV MITCH PRN PRN Reason: Hypotension Last Admin: 05/06/21 16:21 Dose: 25 gm Albuterol (Albuterol 2.5 Mg/3 Ml Nebu) 2.5 mg IH Q4HRT PRN PRN Reason: Shortness Of Breath Last Admin: 04/23/21 15:18 Dose: 2.5 mg Lipase/Protease/Amylase (Lipase 10,500/Protease 25,000/Amylase 43,750 (Units) Dr Vasquez) 1 each FEEDTUBE PRN PRN PRN Reason: For Clogged Feeding Tube Aspirin (Aspirin 81 Mg Tab Chew) 81 mg FEEDTUBE QDAY [facility] Last Admin: 05/10/21 09:28 Dose: 81 mg Atorvastatin Calcium (Atorvastatin 40 Mg Tab) 40 mg FEEDTUBE QHS [facility] Last Admin: 05/09/21 22:38 Dose: 40 mg Dextrose (Dextrose 50% In Water (25gm) 50 Ml Syringe) 50 ml IV Q30MIN PRN; Protocol PRN Reason: Hypoglycemia Famotidine (Famotidine 10 Mg Tab) 10 mg FEEDTUBE BID [facility] Last Admin: 05/10/21 09:28 Dose: 10 mg Heparin Sodium (Porcine) (Heparin 5,000 Unit/1 Ml Vial) 5,000 unit SUB-Q Q12HR [facility] Hydralazine HCl (Hydralazine 20 Mg/1 Ml Inj) 10 mg IV Q4HR PRN PRN Reason: elevated BP Last Admin: 05/10/21 09:28 Dose: 10 mg Hydrophilic Ointment (Lip Therapy Vaseline) 1 applic TP Q2HR PRN PRN Reason: Dry Lips NORepinephrine/NS 8 MG-250 ML (Norepinephrine/Ns 8 Mg-250 Ml (Double Conc)) 8 mg in 250 mls @ 3.75 mls/hr IV TITRATE [facility]; Protocol Last Titration: 05/04/21 21:34 Dose: 0 mcg/min, 0 mls/hr Sodium Chloride (Nacl 0.9%) 100 mls @ 999 mls/hr IV MITCH PRN PRN Reason: Hypotension Insulin Human Lispro (Insulin Lispro 100 Unit/Ml) 0 unit SUB-Q Q6HR [facility]; Protocol Last Admin: 05/10/21 12:43 Dose: 3 unit Levothyroxine Sodium (Levothyroxine 50 Mcg Tab) 50 mcg PO DAILY@0600 [facility] Last Admin: 05/10/21 06:20 Dose: 50 mcg Lorazepam (Lorazepam 2 Mg/Ml Vial) 1 mg IV Q4H PRN PRN Reason: Sedation Last Admin: 05/10/21 10:46 Dose: 1 mg Metoclopramide HCl (Metoclopramide 10 Mg/2 Ml Inj) 5 mg IV Q6H PRN PRN Reason: Nausea And Vomiting Multi-Ingred Cream/Lotion/Oil/Oint (Mineral Oil/Petrolatum, White Ophth Oint 3.5 Gm) 1 applic OU Q4HR PRN PRN Reason: Dry Eye(s) Ondansetron HCl (Ondansetron 4 Mg/2 Ml Inj) 4 mg IV Q8H PRN PRN Reason: Nausea And Vomiting Potassium Chloride (Potassium Chloride 20 Meq Packet) 40 meq FEEDTUBE ONCE@1400 [facility] Stop: 05/10/21 18:00 Last Admin: 05/10/21 14:59 Dose: 40 meq Senna/Docusate Sodium (Sennosides/Docusate Sodium 8.6/50 Mg Tab) 1 tab FEEDTUBE BID [facility] Last Admin: 05/10/21 09:28 Dose: 1 tab Simple Syrup (Simple Syrup 15 Ml) 15 ml FEEDTUBE PRN PRN PRN Reason: Hypoglycemia Simple Syrup (Simple Syrup 15 Ml) 30 ml FEEDTUBE PRN PRN PRN Reason: Hypoglycemia Sodium Bicarbonate (Sodium Bicarbonate 325 Mg Tab) 325 mg FEEDTUBE PRN PRN PRN Reason: For Clogged Feeding Tube Last Admin: 04/27/21 13:00 Dose: 325 mg Sodium Bicarbonate (Sodium Bicarbonate 650 Mg Tab) 1,300 mg PO TID [facility] Last Admin: 05/10/21 14:59 Dose: 1,300 mg Sodium Chloride (Sodium Chloride 0.9% 10 Ml Flush Syringe) 10 ml IV BID [facility] Last Admin: 05/10/21 09:28 Dose: 10 ml Sodium Chloride (Sodium Chloride 0.9% 10 Ml Flush Syringe) 10 ml IV PRN PRN PRN Reason: LINE FLUSH Review of Systems ROS unobtainable: due to mental status Exam Vital Signs Pulse Resp BP Pulse Ox 85 19 107/35 94 04/20/21 14:31 04/20/21 14:31 04/20/21 14:31 04/20/21 14:31 - General physical appearance Positive: no distress, no pain - ENT Positive: other (NGT in place) - Neck Positive: no masses, trachea midline, no lymphadectomy - Respiratory Positive: normal expansion, normal respiratory effort, other (intubated on vent) - Cardiovascular Heart Sounds: Present: S1 & S2 - Extremities Extremities: no ischemia - Abdomen Abdomen: Present: soft, other (Pfannenstiel and low midline incision). Absent: tender - Neurologic Neurologic: no alert and oriented to time, place and person, other (responds to stimulus) Results - Labs 05/10/21 05:00 05/10/21 05:00 Abnormal lab results 05/08/21 05/09/21 05/10/21 Range/Units 09:34 23:42 05:00 RBC 2.99 L (3.65-5.03) M/mm3 Hgb 8.2 L (10.1-14.3) gm/dl Hct 25.6 L (30.3-42.9) % RDW 15.4 H (13.2-15.2) % Plt Count 456 H (140-440) K/mm3 Sodium (137-145) mmol/L Potassium (3.6-5.0) mmol/L Chloride (98-107) mmol/L BUN (7-17) mg/dL Creatinine (0.6-1.2) mg/dL Glucose (65-100) mg/dL POC Glucose 152 H (70-105) mg/dL Urine Creatinine 56.0 H (0.1-20.0) mg/dL 05/10/21 05/10/21 05/10/21 Range/Units 05:00 05:30 12:08 RBC (3.65-5.03) M/mm3 Hgb (10.1-14.3) gm/dl Hct (30.3-42.9) % RDW (13.2-15.2) % Plt Count (140-440) K/mm3 Sodium 148 H (137-145) mmol/L Potassium 3.4 L (3.6-5.0) mmol/L Chloride 110.5 H (98-107) mmol/L BUN 36 H (7-17) mg/dL Creatinine 1.6 H (0.6-1.2) mg/dL Glucose 185 H (65-100) mg/dL POC Glucose 168 H 193 H (70-105) mg/dL Urine Creatinine (0.1-20.0) mg/dL Diabetes panel 05/10/21 Range/Units 05:00 Sodium 148 H (137-145) mmol/L Potassium 3.4 L (3.6-5.0) mmol/L Chloride 110.5 H (98-107) mmol/L Carbon Dioxide 28 (22-30) mmol/L BUN 36 H (7-17) mg/dL Creatinine 1.6 H (0.6-1.2) mg/dL Glucose 185 H (65-100) mg/dL Calcium 8.6 (8.4-10.2) mg/dL Calcium panel 05/10/21 Range/Units 05:00 Calcium 8.6 (8.4-10.2) mg/dL Phosphorus 2.90 (2.5-4.5) mg/dL Pituitary panel 05/10/21 Range/Units 05:00 Sodium 148 H (137-145) mmol/L Potassium 3.4 L (3.6-5.0) mmol/L Chloride 110.5 H (98-107) mmol/L Carbon Dioxide 28 (22-30) mmol/L BUN 36 H (7-17) mg/dL Creatinine 1.6 H (0.6-1.2) mg/dL Glucose 185 H (65-100) mg/dL Calcium 8.6 (8.4-10.2) mg/dL Adrenal panel 05/10/21 Range/Units 05:00 Sodium 148 H (137-145) mmol/L Potassium 3.4 L (3.6-5.0) mmol/L Chloride 110.5 H (98-107) mmol/L Carbon Dioxide 28 (22-30) mmol/L BUN 36 H (7-17) mg/dL Creatinine 1.6 H (0.6-1.2) mg/dL Glucose 185 H (65-100) mg/dL Calcium 8.6 (8.4-10.2) mg/dL Assessment and Plan 80 year old male with CVA and encephalopathy and unchanging unresponsiveness. Spoke with Harjinder LUBIN) who gave consent for tracheostomy and PEG tube. Tentatively scheduled for Sunday.
[2021-05-10] MEDS: HEPARIN 5,000 UNIT/1 ML VIAL SUB-Q SCH (21:17)
[2021-05-11] MEDS: INSULIN LISPRO 100 UNIT/ML SUB-Q SCH ×4 (00:04→18:46)
[2021-05-11] MEDS: LEVOTHYROXINE 50 MCG TAB PO SCH (05:49)
[2021-05-11 06:40] LABS: Hematocrit 26.6 % (30.3-42.9); Hemoglobin 8.3 gm/dl (10.1-14.3); Mean Corpuscular HGB Conc 31 % (30-34); Mean Corpuscular Volume 85 fl (79-97); Platelet Count 489 K/mm3 (140-440); Red Blood Count 3.11 M/mm3 (3.65-5.03); Red Cell Distribution Width 15.7 % (13.2-15.2)
[2021-05-11 07:01] LABS: Calcium 8.8 mg/dL (8.4-10.2)
[2021-05-11] MEDS: HEPARIN 5,000 UNIT/1 ML VIAL SUB-Q SCH ×2 (09:45→21:08)
[2021-05-11] MEDS: FREE WATER PO SCH ×2 (09:45→21:09)
[2021-05-11] MEDS: SODIUM BICARBONATE 650 MG TAB PO SCH ×3 (09:45→20:06)
[2021-05-11] MEDS: ASPIRIN 81 MG TAB CHEW FEEDTUBE SCH (09:45)
[2021-05-11] MEDS: SENNOSIDES/DOCUSATE SODIUM 8.6/50 MG TAB FEEDTUBE SCH ×2 (09:45→21:07)
[2021-05-11] MEDS: FAMOTIDINE 10 MG TAB FEEDTUBE SCH ×2 (09:45→21:07)
--- NOTE | 2021-05-11 09:47 | Progress Note ---
Assessment and Plan Assessment and Plan Assessment and plan: This is a 80-year-old female longterm resident with GERD, hypothyroidism, hyperlipidemia, schizophrenia and dementia admitted with hypothermia, hyponatrem ia, hypokalemia, lactic acidosis, acute kidney injury, rhabdomyolysis and hyperosmolar nonketotic state. 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 -start ASA 81 mg and lipitor 40 mg -LDL is #51 -cardiac monitering R/O AF -SQ heparine -Clinically she open her eyes to stimuli , move left upper with some movment both lower extremities # Hypotension -MAP goal above 65 -on midodrin 5 mg tid # Acute hypoxic respiratory failure -s/p Bipap and ventimask -s/p bronchoscopy on 04/26 -Intubated 04/26 with 7.5 oett at 22 lips -Repeat CXR shows increased interstitial prominence of densities in bilateral lungs # Hypoalbuminemia, transaminitis -Presented with transaminitis -Trend LFTs # Severe hypernatremia (resolved), hyperchloremia (resolved), acute kidney injury likely secondary to vasomotor nephropathy, urinary retention, rhabdomyolysis (resolved) -HD initiated 04/27 -Avoid nephrotoxic medications -Trend BMP, CK -Renally dose medications -renal US WNL per read # Sepsis likely 2/2 UTI and PNA -COVID-19 PCR negative -04/26/2021 sputum culture: Roselyn nonalbicans -04/29/2021 UA showed significant pyuria. -Lumbar puncture with CSF showing 14 WBC, 324 RBC, glucose 161, protein 51. -Abx per ID: IV meropenem, renally adjusted -Exchange Luther, urine culture ordered -Trend WBC and fever curve -f/u cultures s/p HHNK, h/o hypothyroidism -Restart home levothyroxine (50 mcg q day) -s/p Insulin drip x2 -SSI, long acting insulin (adjust as needed) -TSH 6.04, T4 0.93 -Avoid hypoglycemia # Leukocytosis, thrombocytopenia (resolved), anemia -HIT (-) -Trend CBC -Transfuse to hemoglobin less than 7 -hbg 6.9 -transfuse one unit PRBC -SCD to bilateral lower extremities while in bed -BUE dopplar US negative for DVT PLAN 1- Reconsider LINCOLN when more stable 2- cardiac monitering r/o AF paroxysmal 3- ASA 81 mg and Lipitor 40 mg 4- EEG when possible 5- Avoid sedation 6- avoid Hypotension 7- Pt therapy status is unchanged with chance of improvement is possible she is with multiple medical problem , and bilateral weakness related to 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 push me away with her left arm !!! MRA brain and neck is remarkable for intracranial ICA at cavernous portion sten osis -LINCOLN attempted vital was unsatable she is off sedation blcs negative Bun/Cr#58/3.4--43/2.7--37/1.8--1.6 today--36/1.4 today No HD EEG still pending wbs#12.8 LDL#51 Objective - Vital Sign Vital Signs - 12hr 05/10/21 05/10/21 05/10/21 22:00 22:30 23:00 Temperature Pulse Rate 85 92 H 96 H Pulse Rate [ From Monitor] Respiratory 16 16 14 Rate Blood Pressure 143/72 159/78 162/77 O2 Sat by Pulse 99 99 98 Oximetry 05/10/21 05/11/21 05/11/21 23:30 00:00 00:30 Temperature 98.8 F Pulse Rate 92 H 90 87 Pulse Rate [ 91 H From Monitor] Respiratory 13 17 21 Rate Blood Pressure 145/73 141/68 127/59 O2 Sat by Pulse 97 99 97 Oximetry 05/11/21 05/11/21 05/11/21 01:00 01:30 02:00 Temperature Pulse Rate 93 H 94 H 91 H Pulse Rate [ From Monitor] Respiratory 22 22 21 Rate Blood Pressure 127/59 155/75 156/75 O2 Sat by Pulse 98 98 99 Oximetry 05/11/21 05/11/21 05/11/21 02:30 03:00 03:30 Temperature Pulse Rate 94 H 93 H 94 H Pulse Rate [ From Monitor] Respiratory 23 16 16 Rate Blood Pressure 160/73 152/77 145/72 O2 Sat by Pulse 98 97 98 Oximetry 05/11/21 05/11/21 05/11/21 03:46 04:00 04:30 Temperature 98.4 F Pulse Rate 84 88 94 H Pulse Rate [ 91 H From Monitor] Respiratory 16 17 Rate Blood Pressure 145/72 140/68 165/72 O2 Sat by Pulse 97 97 98 Oximetry 05/11/21 05/11/21 05/11/21 05:00 05:30 06:00 Temperature Pulse Rate 92 H 90 91 H Pulse Rate [ From Monitor] Respiratory 14 15 14 Rate Blood Pressure 166/70 143/66 158/65 O2 Sat by Pulse 98 98 98 Oximetry 05/11/21 05/11/21 05/11/21 06:30 07:00 07:30 Temperature Pulse Rate 94 H 94 H 92 H Pulse Rate [ From Monitor] Respiratory 20 26 H 20 Rate Blood Pressure 161/68 150/71 142/69 O2 Sat by Pulse 99 98 98 Oximetry 05/11/21 08:00 Temperature 98.6 F Pulse Rate 96 H Pulse Rate [ 88 From Monitor] Respiratory 15 Rate Blood Pressure 159/69 O2 Sat by Pulse 98 Oximetry - General Apperance Constitutional: comfortable - EENT EENT: PERRL, mucous membranes moist - Respiratory Respiratory: chest non-tender, lungs clear, rhonchi - Cardiovascular Cardiovascular: regular rate, normal S1, normal S2 Extremities: no peripheral edema bilat, no clubbing, cyanosis - Gastrointestinal Gastrointestinal: normoactive bowel sounds - Integumentary Integumentary: normal - Neurologic Cranial nerve examination: facial droop Speech examination: other (intubated) Detailed motor examination: grossly full strength in, full strength in all venessa, other - Laboratory Findings CBC and BMP: 05/11/21 05:40 05/11/21 05:40 Abnormal Lab Findings: Abnormal Labs 04/20/21 04/20/21 04/20/21 17:10 17:10 17:10 WBC 17.4 H RBC 5.19 H Hgb Hct 46.8 H MCH 27 L RDW 17.2 H Plt Count Seg Neuts % (Manual) 98.0 H Lymphocytes % (Manual) 2.0 L Nucleated RBC % 1.0 H Seg Neutrophils # Man 17.1 H Lymphocytes # (Manual) 0.3 L PT ABG pH POC ABG pCO2 POC ABG pO2 ABG pO2 ABG O2 Saturation ABG Base Excess ABG Hemoglobin ABG Oxyhemoglobin ABG Potassium ABG Chloride ABG Glucose Oxyhemoglobin Carboxyhemoglobin Sodium 173 H* Potassium Chloride 132.9 H Carbon Dioxide 17 L BUN 120 H Creatinine 4.2 H Glucose 762 H* POC Glucose Hemoglobin A1c Lactic Acid Calcium Phosphorus Magnesium 3.80 H Transferrin AST 72 H ALT 63 H Alkaline Phosphatase 148 H Total Creatine Kinase 3697 H CK-MB (CK-2) 36.0 H Serum Total Protein Total Protein Albumin 2.2 L Mlbgm-7-Eojkengwg Cohmg-3-Rgypsrdgk Gamma Globulins PEP Interpretation HDL Cholesterol TSH Arterial Blood Glucose Arterial Blood Ionized Calcium Urine WBC (Auto) Urine Creatinine Urine Total Protein Crossmatch 04/20/21 04/20/21 04/20/21 17:10 17:10 18:55 WBC RBC Hgb Hct MCH RDW Plt Count Seg Neuts % (Manual) Lymphocytes % (Manual) Nucleated RBC % Seg Neutrophils # Man Lymphocytes # (Manual) PT ABG pH POC ABG pCO2 POC ABG pO2 ABG pO2 ABG O2 Saturation ABG Base Excess ABG Hemoglobin ABG Oxyhemoglobin ABG Potassium ABG Chloride ABG Glucose Oxyhemoglobin Carboxyhemoglobin Sodium Potassium Chloride Carbon Dioxide BUN Creatinine Glucose POC Glucose 574 H Hemoglobin A1c Lactic Acid 2.60 H* Calcium Phosphorus Magnesium Transferrin AST ALT Alkaline Phosphatase Total Creatine Kinase CK-MB (CK-2) Serum Total Protein Total Protein Albumin Nujao-6-Cmngujgly Chtyr-5-Ttcbkitad Gamma Globulins PEP Interpretation HDL Cholesterol TSH 6.040 H Arterial Blood Glucose Arterial Blood Ionized Calcium Urine WBC (Auto) Urine Creatinine Urine Total Protein Crossmatch 04/20/21 04/20/21 04/20/21 22:12 22:58 22:58 WBC RBC Hgb Hct MCH RDW Plt Count Seg Neuts % (Manual) Lymphocytes % (Manual) Nucleated RBC % Seg Neutrophils # Man Lymphocytes # (Manual) PT ABG pH POC ABG pCO2 POC ABG pO2 ABG pO2 ABG O2 Saturation ABG Base Excess ABG Hemoglobin ABG Oxyhemoglobin ABG Potassium ABG Chloride ABG Glucose Oxyhemoglobin Carboxyhemoglobin Sodium 172 H* Potassium 3.2 L Chloride 134.2 H Carbon Dioxide 17 L BUN 112 H Creatinine 3.8 H Glucose 803 H* POC Glucose 554 H Hemoglobin A1c Lactic Acid Calcium 8.3 L Phosphorus Magnesium 3.50 H Transferrin AST ALT Alkaline Phosphatase Total Creatine Kinase CK-MB (CK-2) Serum Total Protein Total Protein Albumin Tsflq-9-Kxctpjsdx Tqhxu-5-Jahhkcbpw Gamma Globulins PEP Interpretation HDL Cholesterol TSH Arterial Blood Glucose Arterial Blood Ionized Calcium Urine WBC (Auto) Urine Creatinine Urine Total Protein Crossmatch 04/21/21 04/21/21 04/21/21 00:14 00:22 02:01 WBC RBC Hgb Hct MCH RDW Plt Count Seg Neuts % (Manual) Lymphocytes % (Manual) Nucleated RBC % Seg Neutrophils # Man Lymphocytes # (Manual) PT ABG pH POC ABG pCO2 POC ABG pO2 ABG pO2 ABG O2 Saturation ABG Base Excess ABG Hemoglobin ABG Oxyhemoglobin ABG Potassium ABG Chloride ABG Glucose Oxyhemoglobin Carboxyhemoglobin Sodium 176 H* 175 H* Potassium 2.9 L* 3.0 L Chloride 139.9 H 136.2 H Carbon Dioxide 17 L 19 L BUN 113 H 112 H Creatinine 3.9 H 3.6 H Glucose 729 H* 582 H* POC Glucose > 600 H Hemoglobin A1c Lactic Acid Calcium Phosphorus Magnesium Transferrin AST ALT Alkaline Phosphatase Total Creatine Kinase CK-MB (CK-2) Serum Total Protein Total Protein Albumin Masqv-6-Getmicviw Revqs-4-Elgentdrj Gamma Globulins PEP Interpretation HDL Cholesterol TSH Arterial Blood Glucose Arterial Blood Ionized Calcium Urine WBC (Auto) Urine Creatinine Urine Total Protein Crossmatch 04/21/21 04/21/21 04/21/21 03:11 03:20 03:41 WBC 14.1 H RBC Hgb Hct MCH 27 L RDW 16.8 H Plt Count 114 L Seg Neuts % (Manual) 97.0 H Lymphocytes % (Manual) 3.0 L Nucleated RBC % 1.0 H Seg Neutrophils # Man 13.7 H Lymphocytes # (Manual) 0.4 L PT ABG pH POC ABG pCO2 POC ABG pO2 ABG pO2 52.3 L ABG O2 Saturation 84.5 L ABG Base Excess -2.9 L ABG Hemoglobin ABG Oxyhemoglobin ABG Potassium ABG Chloride ABG Glucose Oxyhemoglobin 82.9 L Carboxyhemoglobin Sodium Potassium Chloride Carbon Dioxide BUN Creatinine Glucose POC Glucose 404 H Hemoglobin A1c Lactic Acid Calcium Phosphorus Magnesium Transferrin AST ALT Alkaline Phosphatase Total Creatine Kinase CK-MB (CK-2) Serum Total Protein Total Protein Albumin Fvysw-4-Bjqhqiriz Gfwkm-6-Iegnxjjux Gamma Globulins PEP Interpretation HDL Cholesterol TSH Arterial Blood Glucose Arterial Blood Ionized Calcium Urine WBC (Auto) Urine Creatinine Urine Total Protein Crossmatch 04/21/21 04/21/21 04/21/21 03:41 04:24 05:45 WBC RBC Hgb Hct MCH RDW Plt Count Seg Neuts % (Manual) Lymphocytes % (Manual) Nucleated RBC % Seg Neutrophils # Man Lymphocytes # (Manual) PT ABG pH POC ABG pCO2 POC ABG pO2 ABG pO2 ABG O2 Saturation ABG Base Excess ABG Hemoglobin ABG Oxyhemoglobin ABG Potassium ABG Chloride ABG Glucose Oxyhemoglobin Carboxyhemoglobin Sodium 179 H* Potassium 2.9 L* Chloride 138.2 H Carbon Dioxide 20 L BUN 111 H Creatinine 3.7 H Glucose 465 H POC Glucose 353 H 280 H Hemoglobin A1c Lactic Acid Calcium Phosphorus Magnesium Transferrin AST 73 H ALT 61 H Alkaline Phosphatase 144 H Total Creatine Kinase CK-MB (CK-2) Serum Total Protein Total Protein Albumin 2.5 L Zaxhq-5-Ubtnnntzx Wydjn-2-Gqkwmztnn Gamma Globulins PEP Interpretation HDL Cholesterol TSH Arterial Blood Glucose Arterial Blood Ionized Calcium Urine WBC (Auto) Urine Creatinine Urine Total Protein Crossmatch 04/21/21 04/21/21 04/21/21 06:47 08:01 11:11 WBC RBC Hgb Hct MCH RDW Plt Count Seg Neuts % (Manual) Lymphocytes % (Manual) Nucleated RBC % Seg Neutrophils # Man Lymphocytes # (Manual) PT ABG pH POC ABG pCO2 POC ABG pO2 ABG pO2 ABG O2 Saturation ABG Base Excess ABG Hemoglobin ABG Oxyhemoglobin ABG Potassium ABG Chloride ABG Glucose Oxyhemoglobin Carboxyhemoglobin Sodium Potassium Chloride Carbon Dioxide BUN Creatinine Glucose POC Glucose 260 H 68 L Hemoglobin A1c Lactic Acid Calcium Phosphorus Magnesium Transferrin AST ALT Alkaline Phosphatase Total Creatine Kinase CK-MB (CK-2) Serum Total Protein Total Protein Albumin Lrmgx-2-Epxehuqtp Ftiag-6-Eyhpkjcqz Gamma Globulins PEP Interpretation HDL Cholesterol TSH Arterial Blood Glucose Arterial Blood Ionized Calcium Urine WBC (Auto) Urine Creatinine 44.3 H Urine Total Protein 12 H Crossmatch 04/21/21 04/21/21 04/21/21 12:51 13:41 14:40 WBC RBC Hgb Hct MCH RDW Plt Count Seg Neuts % (Manual) Lymphocytes % (Manual) Nucleated RBC % Seg Neutrophils # Man Lymphocytes # (Manual) PT ABG pH 7.275 L POC ABG pCO2 POC ABG pO2 63.4 L ABG pO2 ABG O2 Saturation ABG Base Excess ABG Hemoglobin 8.4 L ABG Oxyhemoglobin 89.5 L ABG Potassium ABG Chloride 108.0 H ABG Glucose 404 H Oxyhemoglobin Carboxyhemoglobin Sodium Potassium Chloride Carbon Dioxide BUN Creatinine Glucose POC Glucose 146 H 186 H Hemoglobin A1c Lactic Acid Calcium Phosphorus Magnesium Transferrin AST ALT Alkaline Phosphatase Total Creatine Kinase CK-MB (CK-2) Serum Total Protein Total Protein Albumin Cxhfy-2-Aspgighdn Wyxxo-5-Rzwhxlkqo Gamma Globulins PEP Interpretation HDL Cholesterol TSH Arterial Blood Glucose 404 H Arterial Blood Ionized Calcium Urine WBC (Auto) Urine Creatinine Urine Total Protein Crossmatch 04/21/21 04/21/21 04/21/21 15:47 16:25 17:57 WBC RBC Hgb Hct MCH RDW Plt Count Seg Neuts % (Manual) Lymphocytes % (Manual) Nucleated RBC % Seg Neutrophils # Man Lymphocytes # (Manual) PT ABG pH 7.486 H POC ABG pCO2 POC ABG pO2 ABG pO2 168.1 H ABG O2 Saturation 99.1 H ABG Base Excess ABG Hemoglobin 8.9 L ABG Oxyhemoglobin ABG Potassium ABG Chloride ABG Glucose Oxyhemoglobin Carboxyhemoglobin Sodium Potassium Chloride Carbon Dioxide BUN Creatinine Glucose POC Glucose 172 H 143 H Hemoglobin A1c Lactic Acid Calcium Phosphorus Magnesium Transferrin AST ALT Alkaline Phosphatase Total Creatine Kinase CK-MB (CK-2) Serum Total Protein Total Protein Albumin Mqjam-9-Voqtvmnkc Mziih-6-Gwxidbwnr Gamma Globulins PEP Interpretation HDL Cholesterol TSH Arterial Blood Glucose Arterial Blood Ionized Calcium Urine WBC (Auto) Urine Creatinine Urine Total Protein Crossmatch 04/21/21 04/21/21 04/21/21 18:49 19:10 20:26 WBC RBC Hgb Hct MCH RDW Plt Count Seg Neuts % (Manual) Lymphocytes % (Manual) Nucleated RBC % Seg Neutrophils # Man Lymphocytes # (Manual) PT ABG pH POC ABG pCO2 POC ABG pO2 ABG pO2 ABG O2 Saturation ABG Base Excess ABG Hemoglobin ABG Oxyhemoglobin ABG Potassium ABG Chloride ABG Glucose Oxyhemoglobin Carboxyhemoglobin Sodium 174 H* Potassium 7.2 H* D Chloride 138.2 H Carbon Dioxide 21 L BUN 99 H Creatinine 4.0 H Glucose 157 H POC Glucose 126 H 190 H Hemoglobin A1c Lactic Acid Calcium Phosphorus Magnesium Transferrin AST 134 H ALT 71 H Alkaline Phosphatase 135 H Total Creatine Kinase 3504 H CK-MB (CK-2) Serum Total Protein Total Protein Albumin 2.2 L Onfjh-8-Iivjreofy Iyzwp-0-Hhzesszdq Gamma Globulins PEP Interpretation HDL Cholesterol TSH Arterial Blood Glucose Arterial Blood Ionized Calcium Urine WBC (Auto) Urine Creatinine Urine Total Protein Crossmatch 04/21/21 04/21/21 04/21/21 20:53 21:52 22:55 WBC RBC Hgb Hct MCH RDW Plt Count Seg Neuts % (Manual) Lymphocytes % (Manual) Nucleated RBC % Seg Neutrophils # Man Lymphocytes # (Manual) PT ABG pH POC ABG pCO2 POC ABG pO2 ABG pO2 ABG O2 Saturation ABG Base Excess ABG Hemoglobin ABG Oxyhemoglobin ABG Potassium ABG Chloride ABG Glucose Oxyhemoglobin Carboxyhemoglobin Sodium Potassium Chloride Carbon Dioxide BUN Creatinine Glucose POC Glucose 116 H 135 H 158 H Hemoglobin A1c Lactic Acid Calcium Phosphorus Magnesium Transferrin AST ALT Alkaline Phosphatase Total Creatine Kinase CK-MB (CK-2) Serum Total Protein Total Protein Albumin Xkfaw-2-Ljrgljkar Pwtsw-6-Pedriphbb Gamma Globulins PEP Interpretation HDL Cholesterol TSH Arterial Blood Glucose Arterial Blood Ionized Calcium Urine WBC (Auto) Urine Creatinine Urine Total Protein Crossmatch 04/21/21 04/22/21 04/22/21 23:00 00:01 00:39 WBC RBC Hgb Hct MCH RDW Plt Count Seg Neuts % (Manual) Lymphocytes % (Manual) Nucleated RBC % Seg Neutrophils # Man Lymphocytes # (Manual) PT ABG pH POC ABG pCO2 POC ABG pO2 ABG pO2 ABG O2 Saturation ABG Base Excess ABG Hemoglobin ABG Oxyhemoglobin ABG Potassium ABG Chloride ABG Glucose Oxyhemoglobin Carboxyhemoglobin Sodium 176 H* 171 H* Potassium Chloride 140.0 H Carbon Dioxide 20 L BUN 98 H Creatinine 3.9 H Glucose 206 H POC Glucose 182 H Hemoglobin A1c Lactic Acid Calcium Phosphorus Magnesium Transferrin AST ALT Alkaline Phosphatase Total Creatine Kinase 3240 H CK-MB (CK-2) Serum Total Protein Total Protein Albumin Sbmke-7-Zkkqcpsoo Griqs-2-Ugceiulor Gamma Globulins PEP Interpretation HDL Cholesterol TSH Arterial Blood Glucose Arterial Blood Ionized Calcium Urine WBC (Auto) Urine Creatinine Urine Total Protein Crossmatch 04/22/21 04/22/21 04/22/21 00:58 01:04 04:52 WBC 11.2 H RBC Hgb Hct 44.3 H MCH 27 L RDW 17.1 H Plt Count 86 L Seg Neuts % (Manual) 86.0 H Lymphocytes % (Manual) 13.0 L Nucleated RBC % Seg Neutrophils # Man 9.6 H Lymphocytes # (Manual) PT ABG pH POC ABG pCO2 POC ABG pO2 ABG pO2 ABG O2 Saturation ABG Base Excess ABG Hemoglobin ABG Oxyhemoglobin ABG Potassium ABG Chloride ABG Glucose Oxyhemoglobin Carboxyhemoglobin Sodium Potassium Chloride Carbon Dioxide BUN Creatinine Glucose POC Glucose 176 H 143 H Hemoglobin A1c Lactic Acid Calcium Phosphorus Magnesium Transferrin AST ALT Alkaline Phosphatase Total Creatine Kinase CK-MB (CK-2) Serum Total Protein Total Protein Albumin Wjkbc-6-Qfzvlbchl Vafpb-7-Taudfgsts Gamma Globulins PEP Interpretation HDL Cholesterol TSH Arterial Blood Glucose Arterial Blood Ionized Calcium Urine WBC (Auto) Urine Creatinine Urine Total Protein Crossmatch 04/22/21 04/22/21 04/22/21 06:07 06:09 07:18 WBC RBC Hgb Hct MCH RDW Plt Count Seg Neuts % (Manual) Lymphocytes % (Manual) Nucleated RBC % Seg Neutrophils # Man Lymphocytes # (Manual) PT ABG pH POC ABG pCO2 POC ABG pO2 ABG pO2 ABG O2 Saturation ABG Base Excess ABG Hemoglobin ABG Oxyhemoglobin ABG Potassium ABG Chloride ABG Glucose Oxyhemoglobin Carboxyhemoglobin Sodium Potassium Chloride Carbon Dioxide BUN Creatinine Glucose POC Glucose 206 H 163 H 158 H Hemoglobin A1c Lactic Acid Calcium Phosphorus Magnesium Transferrin AST ALT Alkaline Phosphatase Total Creatine Kinase CK-MB (CK-2) Serum Total Protein Total Protein Albumin Lkmcw-9-Gwwcuzpzw Vpmgm-8-Rbjmakkbp Gamma Globulins PEP Interpretation HDL Cholesterol TSH Arterial Blood Glucose Arterial Blood Ionized Calcium Urine WBC (Auto) Urine Creatinine Urine Total Protein Crossmatch 04/22/21 04/22/21 04/22/21 08:59 08:59 08:59 WBC RBC Hgb Hct MCH RDW Plt Count Seg Neuts % (Manual) Lymphocytes % (Manual) Nucleated RBC % Seg Neutrophils # Man Lymphocytes # (Manual) PT ABG pH POC ABG pCO2 POC ABG pO2 ABG pO2 ABG O2 Saturation ABG Base Excess ABG Hemoglobin ABG Oxyhemoglobin ABG Potassium ABG Chloride ABG Glucose Oxyhemoglobin Carboxyhemoglobin Sodium 169 H* Potassium 3.5 L Chloride 134.5 H Carbon Dioxide 20 L BUN 95 H Creatinine 3.6 H Glucose 151 H POC Glucose Hemoglobin A1c Lactic Acid Calcium Phosphorus Magnesium Transferrin AST 121 H ALT 75 H Alkaline Phosphatase 137 H Total Creatine Kinase 3105 H CK-MB (CK-2) Serum Total Protein 5.5 L Total Protein 6.0 L Albumin 2.8 L 2.1 L Dxzuv-9-Hysgwddzh 0.6 H Pyuie-7-Qrrgizyvn 1.0 H Gamma Globulins 0.6 L PEP Interpretation see below H HDL Cholesterol TSH Arterial Blood Glucose Arterial Blood Ionized Calcium Urine WBC (Auto) Urine Creatinine Urine Total Protein Crossmatch 04/22/21 04/22/21 04/22/21 09:44 10:24 12:20 WBC RBC Hgb Hct MCH RDW Plt Count Seg Neuts % (Manual) Lymphocytes % (Manual) Nucleated RBC % Seg Neutrophils # Man Lymphocytes # (Manual) PT ABG pH POC ABG pCO2 POC ABG pO2 ABG pO2 ABG O2 Saturation ABG Base Excess ABG Hemoglobin ABG Oxyhemoglobin ABG Potassium ABG Chloride ABG Glucose Oxyhemoglobin Carboxyhemoglobin Sodium Potassium Chloride Carbon Dioxide BUN Creatinine Glucose POC Glucose 107 H 131 H Hemoglobin A1c Lactic Acid Calcium Phosphorus Magnesium 2.80 H Transferrin AST ALT Alkaline Phosphatase Total Creatine Kinase CK-MB (CK-2) Serum Total Protein Total Protein Albumin Yqgsl-1-Lvyjkctue Tdloa-4-Dnqqcomuw Gamma Globulins PEP Interpretation HDL Cholesterol TSH Arterial Blood Glucose Arterial Blood Ionized Calcium Urine WBC (Auto) Urine Creatinine Urine Total Protein Crossmatch 04/22/21 04/22/21 04/22/21 13:19 14:16 15:22 WBC RBC Hgb Hct MCH RDW Plt Count Seg Neuts % (Manual) Lymphocytes % (Manual) Nucleated RBC % Seg Neutrophils # Man Lymphocytes # (Manual) PT ABG pH POC ABG pCO2 POC ABG pO2 ABG pO2 ABG O2 Saturation ABG Base Excess ABG Hemoglobin ABG Oxyhemoglobin ABG Potassium ABG Chloride ABG Glucose Oxyhemoglobin Carboxyhemoglobin Sodium Potassium Chloride Carbon Dioxide BUN Creatinine Glucose POC Glucose 147 H 154 H 136 H Hemoglobin A1c Lactic Acid Calcium Phosphorus Magnesium Transferrin AST ALT Alkaline Phosphatase Total Creatine Kinase CK-MB (CK-2) Serum Total Protein Total Protein Albumin Dixfb-6-Urrllbrdo Menss-3-Ocjebvswa Gamma Globulins PEP Interpretation HDL Cholesterol TSH Arterial Blood Glucose Arterial Blood Ionized Calcium Urine WBC (Auto) Urine Creatinine Urine Total Protein Crossmatch 04/22/21 04/22/21 04/22/21 15:55 15:55 16:22 WBC RBC Hgb Hct MCH RDW Plt Count Seg Neuts % (Manual) Lymphocytes % (Manual) Nucleated RBC % Seg Neutrophils # Man Lymphocytes # (Manual) PT ABG pH POC ABG pCO2 POC ABG pO2 ABG pO2 ABG O2 Saturation ABG Base Excess ABG Hemoglobin ABG Oxyhemoglobin ABG Potassium ABG Chloride ABG Glucose Oxyhemoglobin Carboxyhemoglobin Sodium 169 H* Potassium Chloride 133.5 H Carbon Dioxide 19 L BUN 94 H Creatinine 3.8 H Glucose 150 H POC Glucose 140 H Hemoglobin A1c 17.1 H Lactic Acid Calcium Phosphorus Magnesium Transferrin AST ALT Alkaline Phosphatase Total Creatine Kinase CK-MB (CK-2) Serum Total Protein Total Protein Albumin Krxnm-5-Vkncplghh Xhkue-4-Udcfdrzdl Gamma Globulins PEP Interpretation HDL Cholesterol TSH Arterial Blood Glucose Arterial Blood Ionized Calcium Urine WBC (Auto) Urine Creatinine Urine Total Protein Crossmatch 04/22/21 04/22/21 04/22/21 18:11 18:26 23:19 WBC RBC Hgb Hct MCH RDW Plt Count Seg Neuts % (Manual) Lymphocytes % (Manual) Nucleated RBC % Seg Neutrophils # Man Lymphocytes # (Manual) PT ABG pH POC ABG pCO2 POC ABG pO2 ABG pO2 ABG O2 Saturation ABG Base Excess ABG Hemoglobin ABG Oxyhemoglobin ABG Potassium ABG Chloride ABG Glucose Oxyhemoglobin Carboxyhemoglobin Sodium Potassium Chloride Carbon Dioxide BUN Creatinine Glucose POC Glucose 146 H 188 H Hemoglobin A1c Lactic Acid Calcium Phosphorus Magnesium Transferrin AST ALT Alkaline Phosphatase Total Creatine Kinase 2497 H CK-MB (CK-2) Serum Total Protein Total Protein Albumin Mauqw-2-Whzcgmpmc Yqfas-7-Mcfpaygka Gamma Globulins PEP Interpretation HDL Cholesterol TSH Arterial Blood Glucose Arterial Blood Ionized Calcium Urine WBC (Auto) Urine Creatinine Urine Total Protein Crossmatch 04/23/21 04/23/21 04/23/21 00:27 05:23 07:50 WBC RBC Hgb Hct MCH RDW Plt Count Seg Neuts % (Manual) Lymphocytes % (Manual) Nucleated RBC % Seg Neutrophils # Man Lymphocytes # (Manual) PT ABG pH POC ABG pCO2 POC ABG pO2 ABG pO2 ABG O2 Saturation ABG Base Excess ABG Hemoglobin ABG Oxyhemoglobin ABG Potassium ABG Chloride ABG Glucose Oxyhemoglobin Carboxyhemoglobin Sodium 162 H* Potassium Chloride Carbon Dioxide BUN Creatinine Glucose POC Glucose 212 H 239 H Hemoglobin A1c Lactic Acid Calcium Phosphorus Magnesium Transferrin AST ALT Alkaline Phosphatase Total Creatine Kinase CK-MB (CK-2) Serum Total Protein Total Protein Albumin Xjxqu-8-Zbgaklcyh Vjpeg-0-Vrfyxzzzp Gamma Globulins PEP Interpretation HDL Cholesterol TSH Arterial Blood Glucose Arterial Blood Ionized Calcium Urine WBC (Auto) Urine Creatinine Urine Total Protein Crossmatch 04/23/21 04/23/21 04/23/21 08:13 08:13 08:13 WBC 11.9 H RBC Hgb Hct MCH 26 L RDW 16.5 H Plt Count 72 L Seg Neuts % (Manual) 80.0 H Lymphocytes % (Manual) 5.0 L Nucleated RBC % Seg Neutrophils # Delbert 9.5 H Lymphocytes # (Manual) 0.6 L PT ABG pH POC ABG pCO2 POC ABG pO2 ABG pO2 ABG O2 Saturation ABG Base Excess ABG Hemoglobin ABG Oxyhemoglobin ABG Potassium ABG Chloride ABG Glucose Oxyhemoglobin Carboxyhemoglobin Sodium 164 H* Potassium Chloride 128.0 H Carbon Dioxide 21 L BUN 93 H Creatinine 3.8 H Glucose 293 H POC Glucose Hemoglobin A1c Lactic Acid Calcium Phosphorus Magnesium Transferrin AST 99 H ALT 70 H Alkaline Phosphatase 147 H Total Creatine Kinase 1803 H CK-MB (CK-2) Serum Total Protein Total Protein 6.1 L Albumin 2.0 L Osagt-7-Hgekkfafq Tfzbu-5-Cqjqdfcgt Gamma Globulins PEP Interpretation HDL Cholesterol TSH Arterial Blood Glucose Arterial Blood Ionized Calcium Urine WBC (Auto) Urine Creatinine Urine Total Protein Crossmatch 04/23/21 04/23/21 04/23/21 12:06 17:35 18:17 WBC RBC Hgb Hct MCH RDW Plt Count Seg Neuts % (Manual) Lymphocytes % (Manual) Nucleated RBC % Seg Neutrophils # Delbert Lymphocytes # (Manual) PT ABG pH POC ABG pCO2 POC ABG pO2 ABG pO2 ABG O2 Saturation ABG Base Excess ABG Hemoglobin ABG Oxyhemoglobin ABG Potassium ABG Chloride ABG Glucose Oxyhemoglobin Carboxyhemoglobin Sodium 160 H Potassium Chloride Carbon Dioxide BUN Creatinine Glucose POC Glucose 311 H 370 H Hemoglobin A1c Lactic Acid Calcium Phosphorus Magnesium Transferrin AST ALT Alkaline Phosphatase Total Creatine Kinase CK-MB (CK-2) Serum Total Protein Total Protein Albumin Wyozx-7-Aidvazkpc Pbqko-6-Opyatercg Gamma Globulins PEP Interpretation HDL Cholesterol TSH Arterial Blood Glucose Arterial Blood Ionized Calcium Urine WBC (Auto) Urine Creatinine Urine Total Protein Crossmatch 04/24/21 04/24/21 04/24/21 02:13 06:00 06:00 WBC RBC Hgb Hct MCH 27 L RDW 17.0 H Plt Count 58 L Seg Neuts % (Manual) Lymphocytes % (Manual) 2.0 L Nucleated RBC % Seg Neutrophils # Man 8.9 H Lymphocytes # (Manual) 0.2 L PT ABG pH POC ABG pCO2 POC ABG pO2 ABG pO2 ABG O2 Saturation ABG Base Excess ABG Hemoglobin ABG Oxyhemoglobin ABG Potassium ABG Chloride ABG Glucose Oxyhemoglobin Carboxyhemoglobin Sodium 160 H Potassium Chloride Carbon Dioxide BUN Creatinine Glucose POC Glucose Hemoglobin A1c Lactic Acid Calcium Phosphorus Magnesium 2.90 H Transferrin AST ALT Alkaline Phosphatase Total Creatine Kinase CK-MB (CK-2) Serum Total Protein Total Protein Albumin Qhkcq-1-Kzpqxhrdd Bgupp-6-Rswehvhxh Gamma Globulins PEP Interpretation HDL Cholesterol TSH Arterial Blood Glucose Arterial Blood Ionized Calcium Urine WBC (Auto) Urine Creatinine Urine Total Protein Crossmatch 04/24/21 04/24/21 04/24/21 07:46 08:15 11:34 WBC RBC Hgb Hct MCH RDW Plt Count Seg Neuts % (Manual) Lymphocytes % (Manual) Nucleated RBC % Seg Neutrophils # Man Lymphocytes # (Manual) PT ABG pH POC ABG pCO2 POC ABG pO2 ABG pO2 ABG O2 Saturation ABG Base Excess ABG Hemoglobin ABG Oxyhemoglobin ABG Potassium ABG Chloride ABG Glucose Oxyhemoglobin Carboxyhemoglobin Sodium 159 H Potassium Chloride 125.6 H Carbon Dioxide 19 L BUN 94 H Creatinine 3.7 H Glucose 514 H* POC Glucose 395 H 422 H Hemoglobin A1c Lactic Acid Calcium Phosphorus Magnesium Transferrin AST ALT 61 H Alkaline Phosphatase 155 H Total Creatine Kinase CK-MB (CK-2) Serum Total Protein Total Protein 6.1 L Albumin 1.5 L Qjsfo-2-Xcgtnzaou Soiqa-3-Jxutfkojx Gamma Globulins PEP Interpretation HDL Cholesterol TSH Arterial Blood Glucose Arterial Blood Ionized Calcium Urine WBC (Auto) Urine Creatinine Urine Total Protein Crossmatch 04/24/21 04/24/2104/24/22 13:11 14:01 15:03 WBC RBC Hgb Hct MCH RDW Plt Count Seg Neuts % (Manual) Lymphocytes % (Manual) Nucleated RBC % Seg Neutrophils # Man Lymphocytes # (Manual) PT ABG pH POC ABG pCO2 POC ABG pO2 ABG pO2 ABG O2 Saturation ABG Base Excess ABG Hemoglobin ABG Oxyhemoglobin ABG Potassium ABG Chloride ABG Glucose Oxyhemoglobin Carboxyhemoglobin Sodium Potassium Chloride Carbon Dioxide BUN Creatinine Glucose POC Glucose 384 H 423 H 418 H Hemoglobin A1c Lactic Acid Calcium Phosphorus Magnesium Transferrin AST ALT Alkaline Phosphatase Total Creatine Kinase CK-MB (CK-2) Serum Total Protein Total Protein Albumin Kqkcl-3-Dbruiqiuz Iljdb-7-Iipwpqbdr Gamma Globulins PEP Interpretation HDL Cholesterol TSH Arterial Blood Glucose Arterial Blood Ionized Calcium Urine WBC (Auto) Urine Creatinine Urine Total Protein Crossmatch 04/24/21 04/24/21 04/24/21 17:29 18:28 19:41 WBC RBC Hgb Hct MCH RDW Plt Count Seg Neuts % (Manual) Lymphocytes % (Manual) Nucleated RBC % Seg Neutrophils # Man Lymphocytes # (Manual) PT ABG pH POC ABG pCO2 POC ABG pO2 ABG pO2 ABG O2 Saturation ABG Base Excess ABG Hemoglobin ABG Oxyhemoglobin ABG Potassium ABG Chloride ABG Glucose Oxyhemoglobin Carboxyhemoglobin Sodium Potassium Chloride Carbon Dioxide BUN Creatinine Glucose POC Glucose 335 H 321 H Hemoglobin A1c Lactic Acid Calcium Phosphorus Magnesium Transferrin 112 L AST ALT Alkaline Phosphatase Total Creatine Kinase CK-MB (CK-2) Serum Total Protein Total Protein Albumin Kwmau-3-Hkbdyvqdk Acmpj-7-Gisqxeljx Gamma Globulins PEP Interpretation HDL Cholesterol TSH Arterial Blood Glucose Arterial Blood Ionized Calcium Urine WBC (Auto) Urine Creatinine Urine Total Protein Crossmatch 04/24/21 04/25/21 04/25/21 22:33 01:28 02:28 WBC RBC Hgb Hct MCH RDW Plt Count Seg Neuts % (Manual) Lymphocytes % (Manual) Nucleated RBC % Seg Neutrophils # Man Lymphocytes # (Manual) PT ABG pH POC ABG pCO2 POC ABG pO2 ABG pO2 ABG O2 Saturation ABG Base Excess ABG Hemoglobin ABG Oxyhemoglobin ABG Potassium ABG Chloride ABG Glucose Oxyhemoglobin Carboxyhemoglobin Sodium Potassium Chloride Carbon Dioxide BUN Creatinine Glucose POC Glucose 349 H 283 H 247 H Hemoglobin A1c Lactic Acid Calcium Phosphorus Magnesium Transferrin AST ALT Alkaline Phosphatase Total Creatine Kinase CK-MB (CK-2) Serum Total Protein Total Protein Albumin Zcvli-0-Mnhzwwbqi Hvvmg-3-Hrjpmbnbv Gamma Globulins PEP Interpretation HDL Cholesterol TSH Arterial Blood Glucose Arterial Blood Ionized Calcium Urine WBC (Auto) Urine Creatinine Urine Total Protein Crossmatch 04/25/21 04/25/21 04/25/21 03:25 04:22 05:40 WBC RBC Hgb Hct MCH RDW Plt Count Seg Neuts % (Manual) Lymphocytes % (Manual) Nucleated RBC % Seg Neutrophils # Man Lymphocytes # (Manual) PT ABG pH POC ABG pCO2 POC ABG pO2 ABG pO2 ABG O2 Saturation ABG Base Excess ABG Hemoglobin ABG Oxyhemoglobin ABG Potassium ABG Chloride ABG Glucose Oxyhemoglobin Carboxyhemoglobin Sodium Potassium Chloride Carbon Dioxide BUN Creatinine Glucose POC Glucose 196 H 207 H 204 H Hemoglobin A1c Lactic Acid Calcium Phosphorus Magnesium Transferrin AST ALT Alkaline Phosphatase Total Creatine Kinase CK-MB (CK-2) Serum Total Protein Total Protein Albumin Hzdom-1-Xmrgwiozr Wksie-1-Drkyhfkvj Gamma Globulins PEP Interpretation HDL Cholesterol TSH Arterial Blood Glucose Arterial Blood Ionized Calcium Urine WBC (Auto) Urine Creatinine Urine Total Protein Crossmatch 04/25/21 04/25/21 04/25/21 05:45 06:43 07:37 WBC RBC Hgb Hct MCH 27 L RDW 17.0 H Plt Count 64 L Seg Neuts % (Manual) 84.0 H Lymphocytes % (Manual) 6.0 L Nucleated RBC % 1.0 H Seg Neutrophils # Man Lymphocytes # (Manual) 0.4 L PT ABG pH POC ABG pCO2 POC ABG pO2 ABG pO2 ABG O2 Saturation ABG Base Excess ABG Hemoglobin ABG Oxyhemoglobin ABG Potassium ABG Chloride ABG Glucose Oxyhemoglobin Carboxyhemoglobin Sodium Potassium Chloride Carbon Dioxide BUN Creatinine Glucose POC Glucose 238 H 201 H Hemoglobin A1c Lactic Acid Calcium Phosphorus Magnesium Transferrin AST ALT Alkaline Phosphatase Total Creatine Kinase CK-MB (CK-2) Serum Total Protein Total Protein Albumin Hikqi-2-Isdoertuu Wqdmi-1-Phtkcwltr Gamma Globulins PEP Interpretation HDL Cholesterol TSH Arterial Blood Glucose Arterial Blood Ionized Calcium Urine WBC (Auto) Urine Creatinine Urine Total Protein Crossmatch 04/25/21 04/25/21 04/25/21 08:11 08:11 08:41 WBC RBC Hgb Hct MCH RDW Plt Count Seg Neuts % (Manual) Lymphocytes % (Manual) Nucleated RBC % Seg Neutrophils # Man Lymphocytes # (Manual) PT ABG pH POC ABG pCO2 POC ABG pO2 ABG pO2 ABG O2 Saturation ABG Base Excess ABG Hemoglobin ABG Oxyhemoglobin ABG Potassium ABG Chloride ABG Glucose Oxyhemoglobin Carboxyhemoglobin Sodium 148 H D Potassium Chloride 115.7 H Carbon Dioxide 21 L BUN 83 H Creatinine 3.6 H Glucose 247 H POC Glucose 220 H Hemoglobin A1c Lactic Acid Calcium Phosphorus Magnesium 2.50 H Transferrin AST 63 H ALT 62 H Alkaline Phosphatase 143 H Total Creatine Kinase CK-MB (CK-2) Serum Total Protein Total Protein 5.4 L Albumin 1.4 L Ilpbm-0-Seltearmt Mnefk-7-Svnsmseoc Gamma Globulins PEP Interpretation HDL Cholesterol TSH Arterial Blood Glucose Arterial Blood Ionized Calcium Urine WBC (Auto) Urine Creatinine Urine Total Protein Crossmatch 04/25/21 04/25/21 04/25/21 09:22 10:31 11:44 WBC RBC Hgb Hct MCH RDW Plt Count Seg Neuts % (Manual) Lymphocytes % (Manual) Nucleated RBC % Seg Neutrophils # Man Lymphocytes # (Manual) PT ABG pH POC ABG pCO2 POC ABG pO2 ABG pO2 ABG O2 Saturation ABG Base Excess ABG Hemoglobin ABG Oxyhemoglobin ABG Potassium ABG Chloride ABG Glucose Oxyhemoglobin Carboxyhemoglobin Sodium Potassium Chloride Carbon Dioxide BUN Creatinine Glucose POC Glucose 228 H 215 H 191 H Hemoglobin A1c Lactic Acid Calcium Phosphorus Magnesium Transferrin AST ALT Alkaline Phosphatase Total Creatine Kinase CK-MB (CK-2) Serum Total Protein Total Protein Albumin Zhblm-4-Ytrowvtab Krflx-4-Gyiglfzsv Gamma Globulins PEP Interpretation HDL Cholesterol TSH Arterial Blood Glucose Arterial Blood Ionized Calcium Urine WBC (Auto) Urine Creatinine Urine Total Protein Crossmatch 04/25/21 04/25/21 04/25/21 12:23 13:48 14:11 WBC RBC Hgb Hct MCH RDW Plt Count Seg Neuts % (Manual) Lymphocytes % (Manual) Nucleated RBC % Seg Neutrophils # Man Lymphocytes # (Manual) PT ABG pH POC ABG pCO2 POC ABG pO2 ABG pO2 ABG O2 Saturation ABG Base Excess ABG Hemoglobin ABG Oxyhemoglobin ABG Potassium ABG Chloride ABG Glucose Oxyhemoglobin Carboxyhemoglobin Sodium Potassium Chloride Carbon Dioxide BUN Creatinine Glucose POC Glucose 229 H 177 H 161 H Hemoglobin A1c Lactic Acid Calcium Phosphorus Magnesium Transferrin AST ALT Alkaline Phosphatase Total Creatine Kinase CK-MB (CK-2) Serum Total Protein Total Protein Albumin Pujii-3-Fxawehiuj Tvdqy-8-Aikqdykzc Gamma Globulins PEP Interpretation HDL Cholesterol TSH Arterial Blood Glucose Arterial Blood Ionized Calcium Urine WBC (Auto) Urine Creatinine Urine Total Protein Crossmatch 04/25/21 04/25/21 04/26/21 18:01 21:31 01:19 WBC RBC Hgb Hct MCH RDW Plt Count Seg Neuts % (Manual) Lymphocytes % (Manual) Nucleated RBC % Seg Neutrophils # Man Lymphocytes # (Manual) PT ABG pH POC ABG pCO2 POC ABG pO2 ABG pO2 ABG O2 Saturation ABG Base Excess ABG Hemoglobin ABG Oxyhemoglobin ABG Potassium ABG Chloride ABG Glucose Oxyhemoglobin Carboxyhemoglobin Sodium Potassium Chloride Carbon Dioxide BUN Creatinine Glucose POC Glucose 264 H 371 H 356 H Hemoglobin A1c Lactic Acid Calcium Phosphorus Magnesium Transferrin AST ALT Alkaline Phosphatase Total Creatine Kinase CK-MB (CK-2) Serum Total Protein Total Protein Albumin Gyfhu-5-Erqfnspwc Ezxgy-0-Awqovmkki Gamma Globulins PEP Interpretation HDL Cholesterol TSH Arterial Blood Glucose Arterial Blood Ionized Calcium Urine WBC (Auto) Urine Creatinine Urine Total Protein Crossmatch 04/26/21 04/26/21 04/26/21 06:31 09:13 09:33 WBC RBC Hgb Hct MCH 27 L RDW 16.9 H Plt Count 58 L Seg Neuts % (Manual) 77.0 H Lymphocytes % (Manual) 4.0 L Nucleated RBC % 2.0 H Seg Neutrophils # Man Lymphocytes # (Manual) 0.3 L PT ABG pH POC ABG pCO2 POC ABG pO2 ABG pO2 ABG O2 Saturation ABG Base Excess ABG Hemoglobin ABG Oxyhemoglobin ABG Potassium ABG Chloride ABG Glucose Oxyhemoglobin Carboxyhemoglobin Sodium Potassium Chloride Carbon Dioxide BUN Creatinine Glucose POC Glucose 428 H 454 H Hemoglobin A1c Lactic Acid Calcium Phosphorus Magnesium Transferrin AST ALT Alkaline Phosphatase Total Creatine Kinase CK-MB (CK-2) Serum Total Protein Total Protein Albumin Douwr-0-Lrzfqbets Dblyc-0-Vwfibmsif Gamma Globulins PEP Interpretation HDL Cholesterol TSH Arterial Blood Glucose Arterial Blood Ionized Calcium Urine WBC (Auto) Urine Creatinine Urine Total Protein Crossmatch 04/26/21 04/26/21 04/26/21 09:33 09:33 11:00 WBC RBC Hgb Hct MCH RDW Plt Count Seg Neuts % (Manual) Lymphocytes % (Manual) Nucleated RBC % Seg Neutrophils # Man Lymphocytes # (Manual) PT ABG pH 7.281 L POC ABG pCO2 POC ABG pO2 66.4 L ABG pO2 ABG O2 Saturation ABG Base Excess ABG Hemoglobin 10.9 L ABG Oxyhemoglobin 91 L ABG Potassium ABG Chloride ABG Glucose 521 H Oxyhemoglobin Carboxyhemoglobin Sodium Potassium Chloride Carbon Dioxide 19 L BUN 98 H Creatinine 3.8 H Glucose 530 H* POC Glucose Hemoglobin A1c Lactic Acid Calcium 8.1 L Phosphorus 5.60 H D Magnesium Transferrin AST 60 H ALT 72 H Alkaline Phosphatase 168 H Total Creatine Kinase CK-MB (CK-2) Serum Total Protein Total Protein 4.6 L Albumin 1.7 L Xjyuj-3-Blrupfcdb Ybckl-5-Hlfalvryo Gamma Globulins PEP Interpretation HDL Cholesterol TSH Arterial Blood Glucose 521 H Arterial Blood Ionized Calcium Urine WBC (Auto) Urine Creatinine Urine Total Protein Crossmatch 04/26/21 04/26/21 04/26/21 12:36 15:39 16:18 WBC RBC Hgb Hct MCH RDW Plt Count Seg Neuts % (Manual) Lymphocytes % (Manual) Nucleated RBC % Seg Neutrophils # Man Lymphocytes # (Manual) PT ABG pH 7.275 L POC ABG pCO2 POC ABG pO2 63.4 L ABG pO2 ABG O2 Saturation ABG Base Excess ABG Hemoglobin 8.4 L ABG Oxyhemoglobin 89.5 L ABG Potassium ABG Chloride 108.0 H ABG Glucose 404 H Oxyhemoglobin Carboxyhemoglobin Sodium Potassium Chloride Carbon Dioxide BUN Creatinine Glucose POC Glucose 414 H 324 H Hemoglobin A1c Lactic Acid Calcium Phosphorus Magnesium Transferrin AST ALT Alkaline Phosphatase Total Creatine Kinase CK-MB (CK-2) Serum Total Protein Total Protein Albumin Vmsud-7-Rsolbaknm Rjcvh-0-Xokucwrag Gamma Globulins PEP Interpretation HDL Cholesterol TSH Arterial Blood Glucose 404 H Arterial Blood Ionized Calcium Urine WBC (Auto) Urine Creatinine Urine Total Protein Crossmatch 04/26/21 04/27/21 04/27/21 21:14 00:07 05:47 WBC RBC Hgb Hct MCH RDW Plt Count Seg Neuts % (Manual) Lymphocytes % (Manual) Nucleated RBC % Seg Neutrophils # Man Lymphocytes # (Manual) PT ABG pH POC ABG pCO2 POC ABG pO2 ABG pO2 ABG O2 Saturation ABG Base Excess ABG Hemoglobin ABG Oxyhemoglobin ABG Potassium ABG Chloride ABG Glucose Oxyhemoglobin Carboxyhemoglobin Sodium Potassium Chloride Carbon Dioxide BUN Creatinine Glucose POC Glucose 242 H 282 H 214 H Hemoglobin A1c Lactic Acid Calcium Phosphorus Magnesium Transferrin AST ALT Alkaline Phosphatase Total Creatine Kinase CK-MB (CK-2) Serum Total Protein Total Protein Albumin Ghndb-4-Nhctkkcnh Ljepw-1-Hoxkyoqyw Gamma Globulins PEP Interpretation HDL Cholesterol TSH Arterial Blood Glucose Arterial Blood Ionized Calcium Urine WBC (Auto) Urine Creatinine Urine Total Protein Crossmatch 04/27/21 04/27/21 04/27/21 06:23 07:43 08:30 WBC RBC Hgb Hct MCH RDW Plt Count Seg Neuts % (Manual) Lymphocytes % (Manual) Nucleated RBC % Seg Neutrophils # Man Lymphocytes # (Manual) PT ABG pH 7.309 L POC ABG pCO2 POC ABG pO2 70.6 L ABG pO2 ABG O2 Saturation ABG Base Excess ABG Hemoglobin 9.16 L ABG Oxyhemoglobin 92.4 L ABG Potassium ABG Chloride ABG Glucose Oxyhemoglobin Carboxyhemoglobin Sodium Potassium Chloride 110.1 H Carbon Dioxide 15 L BUN 109 H Creatinine 4.3 H Glucose 218 H POC Glucose 187 H Hemoglobin A1c Lactic Acid Calcium Phosphorus Magnesium Transferrin AST 53 H ALT Alkaline Phosphatase 148 H Total Creatine Kinase 1000 H CK-MB (CK-2) Serum Total Protein Total Protein 5.2 L Albumin 1.2 L Itenw-5-Ycslxqlwh Rcwyo-4-Jthuhojyf Gamma Globulins PEP Interpretation HDL Cholesterol TSH Arterial Blood Glucose Arterial Blood Ionized Calcium Urine WBC (Auto) Urine Creatinine Urine Total Protein Crossmatch 04/27/21 04/27/21 04/27/21 11:54 21:08 23:28 WBC RBC Hgb Hct MCH RDW Plt Count Seg Neuts % (Manual) Lymphocytes % (Manual) Nucleated RBC % Seg Neutrophils # Man Lymphocytes # (Manual) PT ABG pH POC ABG pCO2 POC ABG pO2 ABG pO2 ABG O2 Saturation ABG Base Excess ABG Hemoglobin ABG Oxyhemoglobin ABG Potassium ABG Chloride ABG Glucose Oxyhemoglobin Carboxyhemoglobin Sodium Potassium Chloride Carbon Dioxide BUN Creatinine Glucose POC Glucose 147 H 136 H 201 H Hemoglobin A1c Lactic Acid Calcium Phosphorus Magnesium Transferrin AST ALT Alkaline Phosphatase Total Creatine Kinase CK-MB (CK-2) Serum Total Protein Total Protein Albumin Emmsp-0-Vehqtywvn Eyybn-6-Zebcktnxy Gamma Globulins PEP Interpretation HDL Cholesterol TSH Arterial Blood Glucose Arterial Blood Ionized Calcium Urine WBC (Auto) Urine Creatinine Urine Total Protein Crossmatch 04/28/21 04/28/21 04/28/21 04:00 04:00 05:00 WBC 12.6 H RBC 3.59 L Hgb 9.4 L Hct MCH 26 L RDW 16.6 H Plt Count 111 L Seg Neuts % (Manual) Lymphocytes % (Manual) 1.0 L Nucleated RBC % 4.0 H Seg Neutrophils # Man 11.6 H Lymphocytes # (Manual) 0.1 L PT 15.3 H ABG pH POC ABG pCO2 POC ABG pO2 ABG pO2 ABG O2 Saturation ABG Base Excess ABG Hemoglobin ABG Oxyhemoglobin ABG Potassium ABG Chloride ABG Glucose Oxyhemoglobin Carboxyhemoglobin Sodium 147 H Potassium 3.5 L D Chloride Carbon Dioxide BUN 79 H Creatinine 3.8 H Glucose 194 H POC Glucose Hemoglobin A1c Lactic Acid Calcium 8.1 L Phosphorus Magnesium Transferrin AST ALT Alkaline Phosphatase Total Creatine Kinase CK-MB (CK-2) Serum Total Protein Total Protein Albumin Bdzph-6-Vekavksww Apzbj-0-Icredazqe Gamma Globulins PEP Interpretation HDL Cholesterol TSH Arterial Blood Glucose Arterial Blood Ionized Calcium Urine WBC (Auto) Urine Creatinine Urine Total Protein Crossmatch 04/28/21 04/28/21 04/28/21 05:08 05:18 11:04 WBC RBC Hgb Hct MCH RDW Plt Count Seg Neuts % (Manual) Lymphocytes % (Manual) Nucleated RBC % Seg Neutrophils # Man Lymphocytes # (Manual) PT ABG pH POC ABG pCO2 POC ABG pO2 66.5 L ABG pO2 ABG O2 Saturation ABG Base Excess ABG Hemoglobin 9.7 L ABG Oxyhemoglobin 92.5 L ABG Potassium 3.2 L ABG Chloride ABG Glucose 200 H Oxyhemoglobin Carboxyhemoglobin Sodium Potassium Chloride Carbon Dioxide BUN Creatinine Glucose POC Glucose 183 H 174 H Hemoglobin A1c Lactic Acid Calcium Phosphorus Magnesium Transferrin AST ALT Alkaline Phosphatase Total Creatine Kinase CK-MB (CK-2) Serum Total Protein Total Protein Albumin Ndaju-1-Gbvwpqpzq Euvbg-8-Qizkqdaez Gamma Globulins PEP Interpretation HDL Cholesterol TSH Arterial Blood Glucose 200 H Arterial Blood Ionized Calcium 4.5 L Urine WBC (Auto) Urine Creatinine Urine Total Protein Crossmatch 04/28/21 04/28/21 04/28/21 17:16 21:14 23:41 WBC RBC Hgb Hct MCH RDW Plt Count Seg Neuts % (Manual) Lymphocytes % (Manual) Nucleated RBC % Seg Neutrophils # Man Lymphocytes # (Manual) PT ABG pH POC ABG pCO2 POC ABG pO2 ABG pO2 ABG O2 Saturation ABG Base Excess ABG Hemoglobin ABG Oxyhemoglobin ABG Potassium ABG Chloride ABG Glucose Oxyhemoglobin Carboxyhemoglobin Sodium Potassium Chloride Carbon Dioxide BUN Creatinine Glucose POC Glucose 135 H 134 H 171 H Hemoglobin A1c Lactic Acid Calcium Phosphorus Magnesium Transferrin AST ALT Alkaline Phosphatase Total Creatine Kinase CK-MB (CK-2) Serum Total Protein Total Protein Albumin Pxxfi-1-Rrjtzxolb Njway-5-Csedpfqdn Gamma Globulins PEP Interpretation HDL Cholesterol TSH Arterial Blood Glucose Arterial Blood Ionized Calcium Urine WBC (Auto) Urine Creatinine Urine Total Protein Crossmatch 04/29/21 04/29/21 04/29/21 01:16 04:00 04:00 WBC 13.3 H RBC 3.12 L Hgb 8.3 L Hct 26.2 L MCH 27 L RDW 16.3 H Plt Count 132 L Seg Neuts % (Manual) Lymphocytes % (Manual) Nucleated RBC % Seg Neutrophils # Man Lymphocytes # (Manual) PT ABG pH POC ABG pCO2 POC ABG pO2 ABG pO2 ABG O2 Saturation ABG Base Excess ABG Hemoglobin ABG Oxyhemoglobin ABG Potassium ABG Chloride ABG Glucose Oxyhemoglobin Carboxyhemoglobin Sodium Potassium Chloride Carbon Dioxide BUN 63 H Creatinine 3.4 H Glucose 249 H POC Glucose 236 H Hemoglobin A1c Lactic Acid Calcium 8.2 L Phosphorus Magnesium Transferrin AST 61 H ALT 71 H Alkaline Phosphatase 170 H Total Creatine Kinase CK-MB (CK-2) Serum Total Protein Total Protein 5.1 L Albumin 1.6 L Skhjn-3-Mjcbztpwg Pqziv-7-Efjmursha Gamma Globulins PEP Interpretation HDL Cholesterol TSH Arterial Blood Glucose Arterial Blood Ionized Calcium Urine WBC (Auto) Urine Creatinine Urine Total Protein Crossmatch 04/29/21 04/29/21 04/29/21 11:35 13:30 16:01 WBC RBC Hgb Hct MCH RDW Plt Count Seg Neuts % (Manual) Lymphocytes % (Manual) Nucleated RBC % Seg Neutrophils # Man Lymphocytes # (Manual) PT ABG pH POC ABG pCO2 POC ABG pO2 ABG pO2 ABG O2 Saturation ABG Base Excess ABG Hemoglobin ABG Oxyhemoglobin ABG Potassium ABG Chloride ABG Glucose Oxyhemoglobin Carboxyhemoglobin Sodium Potassium Chloride Carbon Dioxide BUN Creatinine Glucose POC Glucose 320 H 297 H Hemoglobin A1c Lactic Acid Calcium Phosphorus Magnesium Transferrin AST ALT Alkaline Phosphatase Total Creatine Kinase CK-MB (CK-2) Serum Total Protein Total Protein Albumin Eeost-2-Jzsuwfhht Upsdf-1-Gpvbxgsnc Gamma Globulins PEP Interpretation HDL Cholesterol TSH Arterial Blood Glucose Arterial Blood Ionized Calcium Urine WBC (Auto) > 182.0 H Urine Creatinine Urine Total Protein Crossmatch 04/29/21 04/29/21 04/30/21 21:58 23:35 04:00 WBC 11.4 H RBC 3.27 L Hgb 8.7 L Hct 27.5 L MCH 27 L RDW 16.6 H Plt Count Seg Neuts % (Manual) Lymphocytes % (Manual) Nucleated RBC % Seg Neutrophils # Man Lymphocytes # (Manual) PT ABG pH POC ABG pCO2 POC ABG pO2 ABG pO2 ABG O2 Saturation ABG Base Excess ABG Hemoglobin ABG Oxyhemoglobin ABG Potassium ABG Chloride ABG Glucose Oxyhemoglobin Carboxyhemoglobin Sodium Potassium Chloride Carbon Dioxide BUN Creatinine Glucose POC Glucose 260 H 254 H Hemoglobin A1c Lactic Acid Calcium Phosphorus Magnesium Transferrin AST ALT Alkaline Phosphatase Total Creatine Kinase CK-MB (CK-2) Serum Total Protein Total Protein Albumin Hinkv-5-Fmlzngoqw Psigh-4-Yqvvbpyhn Gamma Globulins PEP Interpretation HDL Cholesterol TSH Arterial Blood Glucose Arterial Blood Ionized Calcium Urine WBC (Auto) Urine Creatinine Urine Total Protein Crossmatch 04/30/21 04/30/21 04/30/21 04:00 05:17 05:31 WBC RBC Hgb Hct MCH RDW Plt Count Seg Neuts % (Manual) Lymphocytes % (Manual) Nucleated RBC % Seg Neutrophils # Man Lymphocytes # (Manual) PT ABG pH 7.452 H POC ABG pCO2 30.5 L POC ABG pO2 54.5 L ABG pO2 ABG O2 Saturation ABG Base Excess ABG Hemoglobin 10.1 L ABG Oxyhemoglobin 87.4 L ABG Potassium 2.9 L ABG Chloride ABG Glucose 305 H Oxyhemoglobin Carboxyhemoglobin Sodium Potassium 3.1 L Chloride Carbon Dioxide BUN 79 H Creatinine 3.9 H Glucose 275 H POC Glucose 267 H Hemoglobin A1c Lactic Acid Calcium Phosphorus 5.60 H D Magnesium Transferrin AST ALT Alkaline Phosphatase Total Creatine Kinase CK-MB (CK-2) Serum Total Protein Total Protein Albumin Vivcn-5-Ucoghwqli Ptole-6-Arlbixleh Gamma Globulins PEP Interpretation HDL Cholesterol TSH Arterial Blood Glucose 305 H Arterial Blood Ionized Calcium Urine WBC (Auto) Urine Creatinine Urine Total Protein Crossmatch 04/30/21 04/30/21 04/30/21 12:31 17:50 22:24 WBC RBC Hgb Hct MCH RDW Plt Count Seg Neuts % (Manual) Lymphocytes % (Manual) Nucleated RBC % Seg Neutrophils # Man Lymphocytes # (Manual) PT ABG pH POC ABG pCO2 POC ABG pO2 ABG pO2 ABG O2 Saturation ABG Base Excess ABG Hemoglobin ABG Oxyhemoglobin ABG Potassium ABG Chloride ABG Glucose Oxyhemoglobin Carboxyhemoglobin Sodium Potassium Chloride Carbon Dioxide BUN Creatinine Glucose POC Glucose 259 H 161 H 146 H Hemoglobin A1c Lactic Acid Calcium Phosphorus Magnesium Transferrin AST ALT Alkaline Phosphatase Total Creatine Kinase CK-MB (CK-2) Serum Total Protein Total Protein Albumin Byalx-1-Odpubexyp Vtxme-5-Ikeybflvg Gamma Globulins PEP Interpretation HDL Cholesterol TSH Arterial Blood Glucose Arterial Blood Ionized Calcium Urine WBC (Auto) Urine Creatinine Urine Total Protein Crossmatch 05/01/21 05/01/21 05/01/21 00:09 03:30 04:00 WBC 12.0 H RBC 3.08 L Hgb 8.1 L Hct 25.6 L MCH 26 L RDW 16.3 H Plt Count Seg Neuts % (Manual) Lymphocytes % (Manual) Nucleated RBC % Seg Neutrophils # Man Lymphocytes # (Manual) PT ABG pH 7.493 H POC ABG pCO2 POC ABG pO2 ABG pO2 ABG O2 Saturation ABG Base Excess ABG Hemoglobin 9.3 L ABG Oxyhemoglobin ABG Potassium ABG Chloride ABG Glucose 167 H Oxyhemoglobin Carboxyhemoglobin 0.4 L Sodium Potassium Chloride Carbon Dioxide BUN Creatinine Glucose POC Glucose 149 H Hemoglobin A1c Lactic Acid Calcium Phosphorus Magnesium Transferrin AST ALT Alkaline Phosphatase Total Creatine Kinase CK-MB (CK-2) Serum Total Protein Total Protein Albumin Vezzw-0-Gudijrkmu Vibzn-2-Aullmdina Gamma Globulins PEP Interpretation HDL Cholesterol TSH Arterial Blood Glucose 167 H Arterial Blood Ionized Calcium Urine WBC (Auto) Urine Creatinine Urine Total Protein Crossmatch 05/01/21 05/01/21 05/01/21 04:00 05:48 11:49 WBC RBC Hgb Hct MCH RDW Plt Count Seg Neuts % (Manual) Lymphocytes % (Manual) Nucleated RBC % Seg Neutrophils # Man Lymphocytes # (Manual) PT ABG pH POC ABG pCO2 POC ABG pO2 ABG pO2 ABG O2 Saturation ABG Base Excess ABG Hemoglobin ABG Oxyhemoglobin ABG Potassium ABG Chloride ABG Glucose Oxyhemoglobin Carboxyhemoglobin Sodium Potassium 3.5 L Chloride Carbon Dioxide BUN 62 H Creatinine 3.3 H Glucose 179 H POC Glucose 197 H 167 H Hemoglobin A1c Lactic Acid Calcium 8.3 L Phosphorus Magnesium Transferrin AST ALT Alkaline Phosphatase Total Creatine Kinase CK-MB (CK-2) Serum Total Protein Total Protein Albumin Zhwwv-1-Jkvzajkzv Qaxqp-2-Dgbqkmdet Gamma Globulins PEP Interpretation HDL Cholesterol TSH Arterial Blood Glucose Arterial Blood Ionized Calcium Urine WBC (Auto) Urine Creatinine Urine Total Protein Crossmatch 05/01/21 05/01/21 05/02/21 16:24 23:25 04:00 WBC 14.2 H RBC 2.61 L Hgb 6.9 L Hct 22.1 L MCH 27 L RDW 16.1 H Plt Count Seg Neuts % (Manual) Lymphocytes % (Manual) Nucleated RBC % Seg Neutrophils # Man Lymphocytes # (Manual) PT ABG pH POC ABG pCO2 POC ABG pO2 ABG pO2 ABG O2 Saturation ABG Base Excess ABG Hemoglobin ABG Oxyhemoglobin ABG Potassium ABG Chloride ABG Glucose Oxyhemoglobin Carboxyhemoglobin Sodium Potassium Chloride Carbon Dioxide BUN Creatinine Glucose POC Glucose 157 H 147 H Hemoglobin A1c Lactic Acid Calcium Phosphorus Magnesium Transferrin AST ALT Alkaline Phosphatase Total Creatine Kinase CK-MB (CK-2) Serum Total Protein Total Protein Albumin Ohffw-6-Vsgvsxjmx Lovtv-5-Uzhgbltfx Gamma Globulins PEP Interpretation HDL Cholesterol TSH Arterial Blood Glucose Arterial Blood Ionized Calcium Urine WBC (Auto) Urine Creatinine Urine Total Protein Crossmatch 05/02/21 05/02/21 05/02/21 04:00 04:34 05:23 WBC RBC Hgb Hct MCH RDW Plt Count Seg Neuts % (Manual) Lymphocytes % (Manual) Nucleated RBC % Seg Neutrophils # Man Lymphocytes # (Manual) PT ABG pH 7.487 H POC ABG pCO2 POC ABG pO2 78.6 L ABG pO2 ABG O2 Saturation ABG Base Excess ABG Hemoglobin 11.5 L ABG Oxyhemoglobin ABG Potassium ABG Chloride ABG Glucose 122 H Oxyhemoglobin Carboxyhemoglobin Sodium Potassium Chloride Carbon Dioxide BUN 49 H Creatinine 2.8 H Glucose 117 H POC Glucose 119 H Hemoglobin A1c Lactic Acid Calcium Phosphorus Magnesium Transferrin AST ALT Alkaline Phosphatase Total Creatine Kinase CK-MB (CK-2) Serum Total Protein Total Protein Albumin Fcddh-8-Efmrpcsur Hmesz-0-Uwryqcvly Gamma Globulins PEP Interpretation HDL Cholesterol TSH Arterial Blood Glucose 122 H Arterial Blood Ionized Calcium Urine WBC (Auto) Urine Creatinine Urine Total Protein Crossmatch 05/02/21 05/02/21 05/02/21 12:00 12:04 17:29 WBC RBC Hgb Hct MCH RDW Plt Count Seg Neuts % (Manual) Lymphocytes % (Manual) Nucleated RBC % Seg Neutrophils # Man Lymphocytes # (Manual) PT ABG pH POC ABG pCO2 POC ABG pO2 ABG pO2 ABG O2 Saturation ABG Base Excess ABG Hemoglobin ABG Oxyhemoglobin ABG Potassium ABG Chloride ABG Glucose Oxyhemoglobin Carboxyhemoglobin Sodium Potassium Chloride Carbon Dioxide BUN Creatinine Glucose POC Glucose 115 H 120 H Hemoglobin A1c Lactic Acid Calcium Phosphorus Magnesium Transferrin AST ALT Alkaline Phosphatase Total Creatine Kinase CK-MB (CK-2) Serum Total Protein Total Protein Albumin Qkkpw-0-Udgfkgnqb Hxrfn-4-Zakmzjgfm Gamma Globulins PEP Interpretation HDL Cholesterol TSH Arterial Blood Glucose Arterial Blood Ionized Calcium Urine WBC (Auto) Urine Creatinine Urine Total Protein Crossmatch See Detail 05/02/21 05/03/21 05/03/21 23:36 04:00 04:00 WBC 13.9 H RBC 3.22 L Hgb 8.7 L Hct 27.4 L MCH 27 L RDW 15.8 H Plt Count Seg Neuts % (Manual) Lymphocytes % (Manual) Nucleated RBC % Seg Neutrophils # Man Lymphocytes # (Manual) PT ABG pH POC ABG pCO2 POC ABG pO2 ABG pO2 ABG O2 Saturation ABG Base Excess ABG Hemoglobin ABG Oxyhemoglobin ABG Potassium ABG Chloride ABG Glucose Oxyhemoglobin Carboxyhemoglobin Sodium 146 H Potassium 3.5 L Chloride 107.5 H Carbon Dioxide BUN 40 H Creatinine 2.5 H Glucose 104 H POC Glucose 130 H Hemoglobin A1c Lactic Acid Calcium Phosphorus Magnesium Transferrin AST 53 H ALT Alkaline Phosphatase 149 H Total Creatine Kinase CK-MB (CK-2) Serum Total Protein Total Protein 5.2 L Albumin 1.5 L Kkwpg-8-Cxfpvmyrv Cbsjv-7-Jhjizwwed Gamma Globulins PEP Interpretation HDL Cholesterol TSH Arterial Blood Glucose Arterial Blood Ionized Calcium Urine WBC (Auto) Urine Creatinine Urine Total Protein Crossmatch 01/11/22 01/12/22 01/12/22 17:26 01:24 04:48 WBC 14.3 H RBC 3.14 L Hgb 8.5 L Hct 26.3 L MCH 27 L RDW 15.8 H Plt Count Seg Neuts % (Manual) Lymphocytes % (Manual) Nucleated RBC % Seg Neutrophils # Man Lymphocytes # (Manual) PT ABG pH POC ABG pCO2 POC ABG pO2 ABG pO2 ABG O2 Saturation ABG Base Excess ABG Hemoglobin ABG Oxyhemoglobin ABG Potassium ABG Chloride ABG Glucose Oxyhemoglobin Carboxyhemoglobin Sodium Potassium Chloride Carbon Dioxide BUN Creatinine Glucose POC Glucose 123 H 146 H Hemoglobin A1c Lactic Acid Calcium Phosphorus Magnesium Transferrin AST ALT Alkaline Phosphatase Total Creatine Kinase CK-MB (CK-2) Serum Total Protein Total Protein Albumin Ypqjm-1-Dzbkyprmx Poirc-7-Emyptphzh Gamma Globulins PEP Interpretation HDL Cholesterol TSH Arterial Blood Glucose Arterial Blood Ionized Calcium Urine WBC (Auto) Urine Creatinine Urine Total Protein Crossmatch 05/04/21 05/04/21 05/04/21 04:48 05:15 11:24 WBC RBC Hgb Hct MCH RDW Plt Count Seg Neuts % (Manual) Lymphocytes % (Manual) Nucleated RBC % Seg Neutrophils # Man Lymphocytes # (Manual) PT ABG pH POC ABG pCO2 POC ABG pO2 ABG pO2 ABG O2 Saturation ABG Base Excess ABG Hemoglobin ABG Oxyhemoglobin ABG Potassium ABG Chloride ABG Glucose Oxyhemoglobin Carboxyhemoglobin Sodium Potassium 3.5 L Chloride Carbon Dioxide BUN 58 H Creatinine 3.4 H Glucose 168 H POC Glucose 162 H 145 H Hemoglobin A1c Lactic Acid Calcium Phosphorus 5.30 H Magnesium Transferrin AST ALT Alkaline Phosphatase Total Creatine Kinase CK-MB (CK-2) Serum Total Protein Total Protein Albumin Mjwvb-4-Yqndfhbmy Fwapv-6-Aulgnjhvx Gamma Globulins PEP Interpretation HDL Cholesterol 24 L TSH Arterial Blood Glucose Arterial Blood Ionized Calcium Urine WBC (Auto) Urine Creatinine Urine Total Protein Crossmatch 05/04/21 05/04/21 05/05/21 16:01 23:32 04:00 WBC RBC Hgb Hct MCH RDW Plt Count Seg Neuts % (Manual) Lymphocytes % (Manual) Nucleated RBC % Seg Neutrophils # Man Lymphocytes # (Manual) PT ABG pH POC ABG pCO2 POC ABG pO2 ABG pO2 ABG O2 Saturation ABG Base Excess ABG Hemoglobin ABG Oxyhemoglobin ABG Potassium ABG Chloride ABG Glucose Oxyhemoglobin Carboxyhemoglobin Sodium Potassium 3.4 L Chloride Carbon Dioxide BUN 43 H Creatinine 2.7 H Glucose 124 H POC Glucose 148 H 134 H Hemoglobin A1c Lactic Acid Calcium 8.2 L Phosphorus Magnesium Transferrin AST ALT Alkaline Phosphatase Total Creatine Kinase CK-MB (CK-2) Serum Total Protein Total Protein Albumin Zmizl-9-Xkwunpupu Ampzl-0-Pyqantpps Gamma Globulins PEP Interpretation HDL Cholesterol TSH Arterial Blood Glucose Arterial Blood Ionized Calcium Urine WBC (Auto) Urine Creatinine Urine Total Protein Crossmatch 05/05/21 05/06/21 05/06/21 05:14 00:01 04:00 WBC RBC Hgb Hct MCH RDW Plt Count Seg Neuts % (Manual) Lymphocytes % (Manual) Nucleated RBC % Seg Neutrophils # Man Lymphocytes # (Manual) PT ABG pH POC ABG pCO2 POC ABG pO2 ABG pO2 ABG O2 Saturation ABG Base Excess ABG Hemoglobin ABG Oxyhemoglobin ABG Potassium ABG Chloride ABG Glucose Oxyhemoglobin Carboxyhemoglobin Sodium Potassium 3.2 L Chloride Carbon Dioxide BUN 56 H Creatinine 3.0 H Glucose 110 H POC Glucose 120 H 120 H Hemoglobin A1c Lactic Acid Calcium 7.8 L Phosphorus 4.60 H Magnesium Transferrin AST ALT Alkaline Phosphatase Total Creatine Kinase CK-MB (CK-2) Serum Total Protein Total Protein Albumin Dcmcm-4-Fnvfnqnra Pbeiv-8-Imimafpcs Gamma Globulins PEP Interpretation HDL Cholesterol TSH Arterial Blood Glucose Arterial Blood Ionized Calcium Urine WBC (Auto) Urine Creatinine Urine Total Protein Crossmatch 05/06/21 05/06/21 05/06/21 04:27 05:15 17:37 WBC RBC 3.03 L Hgb 8.3 L Hct 25.4 L MCH 27 L RDW Plt Count Seg Neuts % (Manual) Lymphocytes % (Manual) Nucleated RBC % Seg Neutrophils # Man Lymphocytes # (Manual) PT ABG pH POC ABG pCO2 POC ABG pO2 ABG pO2 ABG O2 Saturation ABG Base Excess ABG Hemoglobin ABG Oxyhemoglobin ABG Potassium ABG Chloride ABG Glucose Oxyhemoglobin Carboxyhemoglobin Sodium Potassium Chloride Carbon Dioxide BUN Creatinine Glucose POC Glucose 137 H 132 H Hemoglobin A1c Lactic Acid Calcium Phosphorus Magnesium Transferrin AST ALT Alkaline Phosphatase Total Creatine Kinase CK-MB (CK-2) Serum Total Protein Total Protein Albumin Hpifu-3-Gaizohshr Edxda-9-Jxhdjjfjs Gamma Globulins PEP Interpretation HDL Cholesterol TSH Arterial Blood Glucose Arterial Blood Ionized Calcium Urine WBC (Auto) Urine Creatinine Urine Total Protein Crossmatch 05/07/21 05/07/21 05/07/21 00:30 04:23 04:23 WBC RBC Hgb Hct MCH RDW Plt Count Seg Neuts % (Manual) Lymphocytes % (Manual) Nucleated RBC % Seg Neutrophils # Man Lymphocytes # (Manual) PT ABG pH POC ABG pCO2 POC ABG pO2 ABG pO2 ABG O2 Saturation ABG Base Excess ABG Hemoglobin ABG Oxyhemoglobin ABG Potassium ABG Chloride ABG Glucose Oxyhemoglobin Carboxyhemoglobin Sodium Potassium 3.4 L Chloride 107.1 H Carbon Dioxide BUN 28 H Creatinine 1.9 H Glucose 165 H POC Glucose 121 H Hemoglobin A1c Lactic Acid Calcium 8.2 L Phosphorus Magnesium 1.60 L Transferrin AST ALT Alkaline Phosphatase Total Creatine Kinase CK-MB (CK-2) Serum Total Protein Total Protein Albumin Graei-9-Sfcyfwtya Vtghn-5-Nqvmwrgiq Gamma Globulins PEP Interpretation HDL Cholesterol TSH Arterial Blood Glucose Arterial Blood Ionized Calcium Urine WBC (Auto) Urine Creatinine Urine Total Protein Crossmatch 05/07/21 05/07/21 05/07/21 05:30 11:37 17:28 WBC RBC Hgb Hct MCH RDW Plt Count Seg Neuts % (Manual) Lymphocytes % (Manual) Nucleated RBC % Seg Neutrophils # Man Lymphocytes # (Manual) PT ABG pH POC ABG pCO2 POC ABG pO2 ABG pO2 ABG O2 Saturation ABG Base Excess ABG Hemoglobin ABG Oxyhemoglobin ABG Potassium ABG Chloride ABG Glucose Oxyhemoglobin Carboxyhemoglobin Sodium Potassium Chloride Carbon Dioxide BUN Creatinine Glucose POC Glucose 205 H 148 H 170 H Hemoglobin A1c Lactic Acid Calcium Phosphorus Magnesium Transferrin AST ALT Alkaline Phosphatase Total Creatine Kinase CK-MB (CK-2) Serum Total Protein Total Protein Albumin Gplix-4-Sibjlkipj Sytwz-9-Htdkmsrdi Gamma Globulins PEP Interpretation HDL Cholesterol TSH Arterial Blood Glucose Arterial Blood Ionized Calcium Urine WBC (Auto) Urine Creatinine Urine Total Protein Crossmatch 05/07/21 05/08/21 05/08/21 23:57 05:12 05:12 WBC 11.2 H RBC 3.01 L Hgb 8.2 L Hct 25.5 L MCH 27 L RDW 15.4 H Plt Count Seg Neuts % (Manual) Lymphocytes % (Manual) Nucleated RBC % Seg Neutrophils # Man Lymphocytes # (Manual) PT ABG pH POC ABG pCO2 POC ABG pO2 ABG pO2 ABG O2 Saturation ABG Base Excess ABG Hemoglobin ABG Oxyhemoglobin ABG Potassium ABG Chloride ABG Glucose Oxyhemoglobin Carboxyhemoglobin Sodium Potassium 3.4 L Chloride Carbon Dioxide BUN 37 H Creatinine 2.1 H Glucose 160 H POC Glucose 172 H Hemoglobin A1c Lactic Acid Calcium 8.3 L Phosphorus Magnesium Transferrin AST ALT Alkaline Phosphatase Total Creatine Kinase CK-MB (CK-2) Serum Total Protein Total Protein Albumin Qxxnk-5-Rocprapao Mjran-6-Vgqragpgm Gamma Globulins PEP Interpretation HDL Cholesterol TSH Arterial Blood Glucose Arterial Blood Ionized Calcium Urine WBC (Auto) Urine Creatinine Urine Total Protein Crossmatch 05/08/21 05/08/21 05/08/21 05:20 09:34 11:35 WBC RBC Hgb Hct MCH RDW Plt Count Seg Neuts % (Manual) Lymphocytes % (Manual) Nucleated RBC % Seg Neutrophils # Man Lymphocytes # (Manual) PT ABG pH POC ABG pCO2 POC ABG pO2 ABG pO2 ABG O2 Saturation ABG Base Excess ABG Hemoglobin ABG Oxyhemoglobin ABG Potassium ABG Chloride ABG Glucose Oxyhemoglobin Carboxyhemoglobin Sodium Potassium Chloride Carbon Dioxide BUN Creatinine Glucose POC Glucose 148 H 208 H Hemoglobin A1c Lactic Acid Calcium Phosphorus Magnesium Transferrin AST ALT Alkaline Phosphatase Total Creatine Kinase CK-MB (CK-2) Serum Total Protein Total Protein Albumin Nazuf-5-Evfskdhrq Hlxro-2-Kifqppkxs Gamma Globulins PEP Interpretation HDL Cholesterol TSH Arterial Blood Glucose Arterial Blood Ionized Calcium Urine WBC (Auto) Urine Creatinine 56.0 H Urine Total Protein Crossmatch 05/08/21 05/08/21 05/09/21 16:55 23:57 05:30 WBC 12.8 H RBC 2.98 L Hgb 8.1 L Hct 25.4 L MCH 27 L RDW 15.4 H Plt Count Seg Neuts % (Manual) Lymphocytes % (Manual) Nucleated RBC % Seg Neutrophils # Man Lymphocytes # (Manual) PT ABG pH POC ABG pCO2 POC ABG pO2 ABG pO2 ABG O2 Saturation ABG Base Excess ABG Hemoglobin ABG Oxyhemoglobin ABG Potassium ABG Chloride ABG Glucose Oxyhemoglobin Carboxyhemoglobin Sodium Potassium Chloride Carbon Dioxide BUN Creatinine Glucose POC Glucose 179 H 183 H Hemoglobin A1c Lactic Acid Calcium Phosphorus Magnesium Transferrin AST ALT Alkaline Phosphatase Total Creatine Kinase CK-MB (CK-2) Serum Total Protein Total Protein Albumin Lwvns-9-Onusmxvmt Rcdvo-6-Mtnivvpfq Gamma Globulins PEP Interpretation HDL Cholesterol TSH Arterial Blood Glucose Arterial Blood Ionized Calcium Urine WBC (Auto) Urine Creatinine Urine Total Protein Crossmatch 05/09/21 05/09/21 05/09/21 05:30 05:31 11:24 WBC RBC Hgb Hct MCH RDW Plt Count Seg Neuts % (Manual) Lymphocytes % (Manual) Nucleated RBC % Seg Neutrophils # Man Lymphocytes # (Manual) PT ABG pH POC ABG pCO2 POC ABG pO2 ABG pO2 ABG O2 Saturation ABG Base Excess ABG Hemoglobin ABG Oxyhemoglobin ABG Potassium ABG Chloride ABG Glucose Oxyhemoglobin Carboxyhemoglobin Sodium 150 H Potassium 3.2 L Chloride 110.2 H Carbon Dioxide BUN 37 H Creatinine 1.8 H Glucose 191 H POC Glucose 120 H 197 H Hemoglobin A1c Lactic Acid Calcium Phosphorus Magnesium Transferrin AST ALT Alkaline Phosphatase Total Creatine Kinase CK-MB (CK-2) Serum Total Protein Total Protein Albumin Nknuq-4-Lzadrarui Dahiz-8-Njnnsvabc Gamma Globulins PEP Interpretation HDL Cholesterol TSH Arterial Blood Glucose Arterial Blood Ionized Calcium Urine WBC (Auto) Urine Creatinine Urine Total Protein Crossmatch 05/09/21 05/09/21 05/10/21 15:49 23:42 05:00 WBC RBC 2.99 L Hgb 8.2 L Hct 25.6 L MCH RDW 15.4 H Plt Count 456 H Seg Neuts % (Manual) Lymphocytes % (Manual) Nucleated RBC % Seg Neutrophils # Man Lymphocytes # (Manual) PT ABG pH POC ABG pCO2 POC ABG pO2 ABG pO2 ABG O2 Saturation ABG Base Excess ABG Hemoglobin ABG Oxyhemoglobin ABG Potassium ABG Chloride ABG Glucose Oxyhemoglobin Carboxyhemoglobin Sodium Potassium Chloride Carbon Dioxide BUN Creatinine Glucose POC Glucose 318 H 152 H Hemoglobin A1c Lactic Acid Calcium Phosphorus Magnesium Transferrin AST ALT Alkaline Phosphatase Total Creatine Kinase CK-MB (CK-2) Serum Total Protein Total Protein Albumin Habhr-2-Nhutaohmb Reint-0-Coegymtnd Gamma Globulins PEP Interpretation HDL Cholesterol TSH Arterial Blood Glucose Arterial Blood Ionized Calcium Urine WBC (Auto) Urine Creatinine Urine Total Protein Crossmatch 05/10/21 05/10/21 05/10/21 05:00 05:30 12:08 WBC RBC Hgb Hct MCH RDW Plt Count Seg Neuts % (Manual) Lymphocytes % (Manual) Nucleated RBC % Seg Neutrophils # Man Lymphocytes # (Manual) PT ABG pH POC ABG pCO2 POC ABG pO2 ABG pO2 ABG O2 Saturation ABG Base Excess ABG Hemoglobin ABG Oxyhemoglobin ABG Potassium ABG Chloride ABG Glucose Oxyhemoglobin Carboxyhemoglobin Sodium 148 H Potassium 3.4 L Chloride 110.5 H Carbon Dioxide BUN 36 H Creatinine 1.6 H Glucose 185 H POC Glucose 168 H 193 H Hemoglobin A1c Lactic Acid Calcium Phosphorus Magnesium Transferrin AST ALT Alkaline Phosphatase Total Creatine Kinase CK-MB (CK-2) Serum Total Protein Total Protein Albumin Jfkqo-3-Pnsdxpffy Qhbib-2-Swklkpzwi Gamma Globulins PEP Interpretation HDL Cholesterol TSH Arterial Blood Glucose Arterial Blood Ionized Calcium Urine WBC (Auto) Urine Creatinine Urine Total Protein Crossmatch 05/10/21 05/10/21 05/11/21 18:02 23:25 05:40 WBC RBC 3.11 L Hgb 8.3 L Hct 26.6 L MCH 27 L RDW 15.7 H Plt Count 489 H Seg Neuts % (Manual) Lymphocytes % (Manual) Nucleated RBC % Seg Neutrophils # Man Lymphocytes # (Manual) PT ABG pH POC ABG pCO2 POC ABG pO2 ABG pO2 ABG O2 Saturation ABG Base Excess ABG Hemoglobin ABG Oxyhemoglobin ABG Potassium ABG Chloride ABG Glucose Oxyhemoglobin Carboxyhemoglobin Sodium Potassium Chloride Carbon Dioxide BUN Creatinine Glucose POC Glucose 205 H 171 H Hemoglobin A1c Lactic Acid Calcium Phosphorus Magnesium Transferrin AST ALT Alkaline Phosphatase Total Creatine Kinase CK-MB (CK-2) Serum Total Protein Total Protein Albumin Rrhgs-2-Rkovkglsm Tzgpf-8-Zhovyjkoq Gamma Globulins PEP Interpretation HDL Cholesterol TSH Arterial Blood Glucose Arterial Blood Ionized Calcium Urine WBC (Auto) Urine Creatinine Urine Total Protein Crossmatch 05/11/21 05:40 WBC RBC Hgb Hct MCH RDW Plt Count Seg Neuts % (Manual) Lymphocytes % (Manual) Nucleated RBC % Seg Neutrophils # Man Lymphocytes # (Manual) PT ABG pH POC ABG pCO2 POC ABG pO2 ABG pO2 ABG O2 Saturation ABG Base Excess ABG Hemoglobin ABG Oxyhemoglobin ABG Potassium ABG Chloride ABG Glucose Oxyhemoglobin Carboxyhemoglobin Sodium 149 H Potassium Chloride 112.0 H Carbon Dioxide BUN 36 H Creatinine 1.4 H Glucose 164 H POC Glucose Hemoglobin A1c Lactic Acid Calcium Phosphorus Magnesium Transferrin AST ALT Alkaline Phosphatase Total Creatine Kinase CK-MB (CK-2) Serum Total Protein Total Protein Albumin Fshkk-1-Xvlrqxtxu Vmljh-4-Shjnuvefy Gamma Globulins PEP Interpretation HDL Cholesterol TSH Arterial Blood Glucose Arterial Blood Ionized Calcium Urine WBC (Auto) Urine Creatinine Urine Total Protein Crossmatch
[2021-05-11] MEDS: hydrALAZINE 20 MG/1 ML INJ IV PRN (10:52)
--- NOTE | 2021-05-11 12:54 | Progress Note ---
Assessment and Plan Cultures: 04/21/2021 blood culture: No growth 04/21/2021 COVID-19 PCR: Negative 04/26/2021 sputum culture: Roselyn nonalbicans 04/29/2021 tracheal aspirate culture: Moderate growth of usual respiratory stanley 04/29/2021 blood culture: No growth 05/02/2021 urine culture: yeast A/P: 80-year-old female who is a [facility] resident, with hypothyroidism, GERD, hyperlipidemia, schizophrenia, dementia was admitted on 04/20/2021 after being found unresponsive by the staff: #Septic shock: Likely from pneumonia and UTI. Completed meropenem. 04/29/2021 UA showed significant pyuria. Luther was changed. Typically candiduria does not need antifungal therapy especially since Luther was changed. However, given septic shock, treated with fluconazole 200 mg daily x 5 days. #Acute respiratory failure: On the vent #Acute renal failure: Renally adjust antibiotics. On dialysis. #Acute metabolic encephalopathy: related to CVA and severe hyponatremia which peaked at sodium of 179. #Acute CVA: neurology following. Recs: -monitor off antimicrobials Juanita Darling MD, [facility] O: [phone] F: [phone] Subjective Date of service: 05/11/21 Principal diagnosis: Acute respiratory failure Interval history: No fever. Remains on the vent. Mental status unchanged. Objective - Exam Narrative Exam: Physical Exam: Constitutional: unresponsive, intubated, on the vent Head, Ears, Nose: Normocephalic, atraumatic. External ears, nose normal Eyes: Conjunctivae/corneas clear. No icterus. No ptosis. Neck: intubated Oral: intubated Cardiovascular: S1, S2 + Respiratory: AE fair bilaterally and equal GI: Soft, bowel sounds + Musculoskeletal: b/l UE swelling + Skin: No rash or abscess Hem/Lymphatic: No palpable cervical or supraclavicular nodes. No lymphangitis Psych: no agitation Neurological: unresponsive, intubated, on the vent, exam limited - Constitutional Vitals: Vital Signs Temp Pulse Resp BP Pulse Ox 98.4 F 98 H 21 154/76 98 05/11/21 12:00 05/11/21 11:30 05/11/21 11:00 05/11/21 11:00 05/11/21 11:30 Temperature -Last 24 Hours Temperature 98.4 F Temperature 98.6 F Temperature 98.4 F Temperature 98.8 F Temperature 98.2 F Temperature 98.9 F - Labs CBC & Chem 7: 05/11/21 05:40 05/11/21 05:40 Labs: Abnormal lab results 05/10/21 05/10/21 05/11/21 Range/Units 18:02 23:25 05:40 RBC 3.11 L (3.65-5.03) M/mm3 Hgb 8.3 L (10.1-14.3) gm/dl Hct 26.6 L (30.3-42.9) % MCH 27 L (28-32) pg RDW 15.7 H (13.2-15.2) % Plt Count 489 H (140-440) K/mm3 Sodium (137-145) mmol/L Chloride (98-107) mmol/L BUN (7-17) mg/dL Creatinine (0.6-1.2) mg/dL Glucose (65-100) mg/dL POC Glucose 205 H 171 H (70-105) mg/dL 05/11/21 05/11/21 Range/Units 05:40 11:45 RBC (3.65-5.03) M/mm3 Hgb (10.1-14.3) gm/dl Hct (30.3-42.9) % MCH (28-32) pg RDW (13.2-15.2) % Plt Count (140-440) K/mm3 Sodium 149 H (137-145) mmol/L Chloride 112.0 H (98-107) mmol/L BUN 36 H (7-17) mg/dL Creatinine 1.4 H (0.6-1.2) mg/dL Glucose 164 H (65-100) mg/dL POC Glucose 176 H (70-105) mg/dL
--- NOTE | 2021-05-11 14:19 | Progress Note ---
<LISA CLIFTON - Last Filed: 05/11/21 17:13> Assessment and Plan Assessment and plan: This is a 80-year-old female, detention resident with past medical history of GERD, hypothyroidism, hyperlipidemia, schizophrenia and dementia admitted with hypothermia, hyponatremia, hypokalemia, lactic acidosis, acute kidney injury, rhabdomyolysis and hyperosmolar nonketotic state. Hospital Course to Date: 04/21: Given 1 L LR bolus per nephrology and D5W increased to 125 mL's per hour, COVID-19 PCR pending, CXR and ABG ordered as patient was weaned from BiPAP to 3 L nasal cannula however was uptitrated back to nonrebreather. Will obtain blood cultures x2 given her leukocytosis and hypothermia. Replace potassium. Neurosurgery and neurology consulted and Luther catheter placed. 04/22: Improvement to sodium noted, slight hypokalemia which will be repleted, slight improvement to renal function, LFTs and rhabdomyolysis. Seen by neurosurgery today. Patient still making urine. transition to ssi and start TF as AG 15 04/23/2021: Given racemic epinephrine again due to stridor, continue IV fluids per nephrology, continue to trend sodium and BMP. 04/24/2021: 70/30 increased d/t hyperglycemia but recent BMP showed BG>300, gave additional 5 units IV insulin and ordered 5 units TID scheduled. However after IV insulin her PCOT was 400. Start on insulin gtt for hyperglycemia. Per RN she was not of IV D5 overniught d/t having one IV which was needed for emergency. Day RN did start dextrose. Remains with hyperglycemia. 04/25: Patient obtunded, withdrawal to pain only, on 50%Venti mask SPO2 abobe 92%. Plan to transition to SubQ insulin. Patient with mild hypernatremia this am, FWF added, will stop IVF for now. 04/26: Patient s/p intubation this am. Mentation is unchanged, plan for MRI brain today per NeuroSurg. Still hyperglycemic, hypernatremia improved, D5W D/katlyn, and basal insulin adjusted. 04/27: Bronch overnight. CXR with mild improvement. D/w Nephro plan for HD today, RIJ VasCath inserted. MRI on hold per [facility] patient is too unstable at this time, plan for possible spinal drained tomorrow to see if mentation will improve. 04/28: Tolerated HD overnight, only UF. Mentation remains the same. D/w CCM plan for possible large volume spinal tap under fluoroscopy today. Plan for possible HD again today. Continue FWF for elevated Na. 04/29: MARY overnight. Plan for spinal tap this am. febrile overnight with leukocytosis, remains on pressors and more tachycardic now. Will panculture patient, and empiric IV was initiated. Remains hyperglycemic, basal insulin adjusted. 04/30: Patient's mentation remains unchanged post spinal tap. Plan for possible MRI brain next week. Afebrile overnight and leukocytosis improved, However, vent settings are going up and this am ABG with hypoxia, this am CXR with worsening opacities. Patient with 3+ pitting edema. Continue HD per Nephro. Continue current empiric IV abx, f/u on culture data, might need to get ID on board if worsen. 05/01: Mentation is unchanged, still on pressors. Febrile this am, continue IV abx, ID consulted. 3L out yesterday, plan for HD again tomorrow. Plt count improved, might need to restart AC, will D/w CCM. 05/02: No change in mentation and she is now noted to be decorticating to pain -> MRI brain ordered. Scheduled for HD today. ID consult completed. 05/03: Neurology consulted given MRI findings of multiple acute CVAs, LINCOLN ordered, EEG pending, started on aspirin and Lipitor. updated POA 05/04: Received hemodialysis today, will schedule for LINCOLN today however HD was ongoing at the time neurology will obtain MRA brain and neck then consider LINCOLN, increasing midodrine to aid in weaning Levophed. 05/05: MRA/MRV completed today, urine culture grew Roselyn and was started on fluconazole, LINCOLN tentatively scheduled for tomorrow. Resume tube feeding and n.p.o. at midnight. 05/06: Patient was scheduled for LINCOLN which was attempted however patient became hypotensive and the procedure was aborted. She received HD today. No acute events reported overnight. Tube feedings resumed. 05/07: No acute changes overnight. 05/08: May need permacath, goals of care to be discussed and will likely happen after neuro recommendations tomorrow since LINCOLN was unable to be completed. No acute events overnight. Replete mag, decreased midodrine. 05/09: MARY overnight. Patient remains unresponsive. No HD today per Nephro, low K repleted. D/w CCM plan for possible conference call with patient's POA tomorrow to further discuss plan of care and possible alternatives. 05/10: Mentation unchanged. Given patient multiple failed PST, plan for possible trach and PEG per CCM. General Surgery consulted. No plan for HD today, low K repleted. Proph AC resumed, plt is stable. 05/11: Na remains elevated, continue FWF. Mildly hypertensive, continue PRN Hydral for SBP> 170. Possible trach and Peg on sunday by Gen. Surgery. Assessment and Plan #Neuro:Acute CVA #Acute metabolic encephalopathy #Normal Pressure Hydrocephalus -CT head shows lateral ventricles and third ventricle dilation, raises possibility of normal pressure hydrocephalus -Neurology and neurosurgery consulted, appreciate recommendations -neurosurgery no acute interventions -04/29 s/p spinal tap- 24ml out -MRI brain with multiple ischemic events in both hemisphere, possible embolic event with water shed infarct can not be totally excluded. -Continue ASA and lipitor -Maintain sleep-wake cycle -Avoid delirium -Hold off on restarting home antipsychotic medications #Hypotension-improved #Tachycardia #Sepsis -Was hypotensive, multifactorial-hypovelemia vs infectious process -S/p pressors -BP is now stable, Midodrine D/C -Continue PRN Hydral -Continue blood pressure monitor per protocol -Maintain MAP above 65 and SBP less than 170 #Respiratory: Acute hypoxic respiratory failure #CAP #Possible Aspiration -S/p intubation this am 04/26 -Vent setting:PRVC-30%,6,14,450 -04/26 s/p bronchoscopy, this am CXR with mild improvement -No ABG this am -CCM consulted, appreciate recommendations -VAP bundle addressed -Aspiration precaution HOB above 30 -Daily ABG and CXR -Continue SPO2 monitoring for SPO2 goal above 92% -Multiple failed PST -plan for possible trach/PEG on sunday -Gen. Surgery consulted #GI:Transaminitis #Hypoalbuminemia -Presented with transaminitis -Trend LFTs -Continue enteral nutrition -Ntr consult for TF -BR: Senokot -PPI #:Acute Kidney Injury (SYED) likely secondary to vasomotor nephropathy #Hypokalemia #Hypernatremia-improved #Urinary Retention-resolved -FeNA 0.50 indicating prerenal sate -Nephrology and CCM consulted, appreciate recommendations -04/27 vascath inserted and HD initiated, patient tolerated it well -Continue HD per Nephro -No HD today -Luther catheter placed for strict intake and output -Avoid nephrotoxic medication, Renally dose medications -K repleted -Continue to monitor and replace electrolytes as needed -Trend BMP #ID:CAP #Leukocytosis-improved #Urinary Tract Infection(UTI) -Patient presented hypothemic -CXR shows increased interstitial prominence of densities in bilateral lungs -COVID-19 PCR negative -Blood culture x2 NGTD -Antibiotic therapy course ended today 04/25 -Repeat Blood culture, and sputum culture NGTD -UA with pyuria, culture + yeast -Monitor WBC and fever curve -Daily CBC monitor -ID consulted #Endo:Hyperglycemia #s/p HHNK -Transition to SubQ insulin -Continue high dose SSI Q6hrs -Continue Basal, NPH -Avoid hypoglycemia #Heme:Thrombocytopenia-resolved -Presented with low plt, unknown etiology -Plt count improved -Resumed AC- Heparin SubQ -Trend CBC -Transfuse to hemoglobin less than 7 -Monitor for bleeding -r/o DVT, BE doppler neg -SCD to bilateral lower extremities while in bed The high probability of a clinically significant, sudden or life threatening deterioration of the [Multiple] system(s) required my full and direct attention, intervention and personal management. The aggregate critical care time was [60] minutes. This time is in addition to time spent performing reported procedures but includes the following: [x] Data Review and interpretation [x] Patient assessment and monitoring of vital signs [x] Documentation [x] Medication orders and management Disposition Plan: ICU Total Time Spent with Patient (Minutes): 60 History Interval history: Patient seen and examined at the bedside. Remains unresponsive. MARY overnight Hospitalist Physical - Constitutional Vitals: Temp Pulse Resp BP Pulse Ox 98.4 F 104 H 21 147/70 98 05/11/21 12:00 05/11/21 13:00 05/11/21 13:00 05/11/21 13:00 05/11/21 13:00 General appearance: Present: no acute distress, other (Intubated, unresponsive) - EENT Eyes: Present: PERRL - Respiratory Respiratory effort: normal Respiratory: bilateral: rhonchi - Cardiovascular Rhythm: regular Heart Sounds: Present: S1 & S2 - Extremities Extremities: no ischemia, pulses intact, pulses symmetrical Extremity abnormal: edema - Peripheral Assessment Generalized Edema Type: Non-pitting Edema Degree: 1+ Capillary Refill: < 3 seconds Skin Temperature: Warm Peripheral Pulses: within normal limits - Abdominal General gastrointestinal: soft, non-tender, normal bowel sounds - Integumentary Integumentary: Present: warm, dry - Psychiatric Psychiatric: other (Intubated, unresponsive) - Neurologic Neurologic: other (Intubated, unresponsive) - Allied Health Allied health notes reviewed: nursing HEART Score - HEART Score Troponin: Troponin T 0.021 ng/mL (0.00-0.029) 04/20/21 17:10 Results - Labs CBC & Chem 7: 05/11/21 05:40 05/11/21 05:40 Labs: Laboratory Last Values WBC 9.7 K/mm3 (4.5-11.0) 05/11/21 05:40 RBC 3.11 M/mm3 (3.65-5.03) L 05/11/21 05:40 Hgb 8.3 gm/dl (10.1-14.3) L 05/11/21 05:40 Hct 26.6 % (30.3-42.9) L 05/11/21 05:40 MCV 85 fl (79-97) 05/11/21 05:40 MCH 27 pg (28-32) L 05/11/21 05:40 MCHC 31 % (30-34) 05/11/21 05:40 RDW 15.7 % (13.2-15.2) H 05/11/21 05:40 Plt Count 489 K/mm3 (140-440) H 05/11/21 05:40 Add Manual Diff Complete 04/28/21 04:00 Total Counted 100 04/28/21 04:00 Seg Neutrophils % [place] 04/28/21 04:00 Seg Neuts % (Manual) 77.0 % (40.0-70.0) H 04/26/21 09:33 Band Neutrophils % 2.0 % 04/28/21 04:00 Lymphocytes % (Manual) 1.0 % (13.4-35.0) L 04/28/21 04:00 Reactive Lymphs % (Man) 0 % 04/28/21 04:00 Monocytes % (Manual) 1.0 % (0.0-7.3) 04/28/21 04:00 Eosinophils % (Manual) 3.0 % (0.0-4.3) 04/28/21 04:00 Metamyelocytes % 1.0 % 04/28/21 04:00 Myelocytes % 0 % 04/28/21 04:00 Promyelocytes % 0 % 04/28/21 04:00 Blast Cells % 0 % 04/28/21 04:00 Nucleated RBC % 4.0 % (0.0-0.9) H 04/28/21 04:00 Seg Neutrophils # Man 11.6 K/mm3 (1.8-7.7) H 04/28/21 04:00 Band Neutrophils # 0.3 K/mm3 04/28/21 04:00 Lymphocytes # (Manual) 0.1 K/mm3 (1.2-5.4) L 04/28/21 04:00 Abs React Lymphs (Man) 0.0 K/mm3 04/28/21 04:00 Monocytes # (Manual) 0.1 K/mm3 (0.0-0.8) 04/28/21 04:00 Eosinophils # (Manual) 0.4 K/mm3 (0.0-0.4) 04/28/21 04:00 Basophils # (Manual) 0.0 K/mm3 (0.0-0.1) 04/28/21 04:00 Metamyelocytes # 0.1 K/mm3 04/28/21 04:00 Myelocytes # 0.0 K/mm3 04/28/21 04:00 Promyelocytes # 0.0 K/mm3 04/28/21 04:00 Blast Cells # 0.0 K/mm3 04/28/21 04:00 WBC Morphology Not Reportable 04/28/21 04:00 Hypersegmented Neuts Not Reportable 04/28/21 04:00 Hyposegmented Neuts Not Reportable 04/28/21 04:00 Hypogranular Neuts Not Reportable 04/28/21 04:00 Smudge Cells Not Reportable 04/28/21 04:00 Toxic Granulation Not Reportable 04/28/21 04:00 Toxic Vacuolation Not Reportable 04/28/21 04:00 Dohle Bodies Not Reportable 04/28/21 04:00 Pelger-Huet Anomaly Not Reportable 04/28/21 04:00 Moni Rods Not Reportable 04/28/21 04:00 Platelet Estimate Consistent w auto 04/28/21 04:00 Clumped Platelets Not Reportable 04/28/21 04:00 Plt Clumps, EDTA Not Reportable 04/28/21 04:00 Large Platelets Few 04/28/21 04:00 Giant Platelets Not Reportable 04/28/21 04:00 Platelet Satelliting Not Reportable 04/28/21 04:00 Plt Morphology Comment Not Reportable 04/28/21 04:00 RBC Morphology Not Reportable 04/28/21 04:00 Dimorphic RBCs Not Reportable 04/28/21 04:00 Polychromasia Not Reportable 04/28/21 04:00 Hypochromasia Not Reportable 04/28/21 04:00 Poikilocytosis Not Reportable 04/28/21 04:00 Anisocytosis Not Reportable 04/28/21 04:00 Microcytosis Not Reportable 04/28/21 04:00 Macrocytosis Not Reportable 04/28/21 04:00 Spherocytes Not Reportable 04/28/21 04:00 Pappenheimer Bodies Not Reportable 04/28/21 04:00 Sickle Cells Not Reportable 04/28/21 04:00 Target Cells 1+ 04/28/21 04:00 Tear Drop Cells Not Reportable 04/28/21 04:00 Ovalocytes Not Reportable 04/28/21 04:00 Helmet Cells Not Reportable 04/28/21 04:00 [place] Bodies Not Reportable 04/28/21 04:00 [place] Rings Not Reportable 04/28/21 04:00 [place] Cells Not Reportable 04/28/21 04:00 Bite Cells Not Reportable 04/28/21 04:00 Crenated Cell Not Reportable 04/28/21 04:00 Elliptocytes Not Reportable 04/28/21 04:00 Acanthocytes (Spur) Not Reportable 04/28/21 04:00 Rouleaux Not Reportable 04/28/21 04:00 Hemoglobin C Crystals Not Reportable 04/28/21 04:00 Schistocytes Not Reportable 04/28/21 04:00 Malaria parasites Not Reportable 04/28/21 04:00 Herrera Bodies Not Reportable 04/28/21 04:00 Hem Pathologist Commnt No 04/28/21 04:00 PT 15.3 Sec. (12.2-14.9) H 04/28/21 05:00 INR 1.09 (0.87-1.13) 04/28/21 05:00 APTT 36.6 Sec. (24.2-36.6) 04/28/21 05:00 Heparin Anti-Xa, Unfract Negative (Negative) 04/24/21 17:29 ABG pH 7.487 (7.320-7.450) H 05/02/21 04:34 POC ABG pCO2 35.3 mmHg (32.0-48.0) 05/02/21 04:34 ABG pCO2 31.6 mm Hg 04/21/21 15:47 POC ABG pO2 78.6 mmHg (83-108) L 05/02/21 04:34 ABG pO2 168.1 mm Hg (80.0-90.0) H 04/21/21 15:47 POC ABG HCO3 26.1 05/02/21 04:34 ABG HCO3 23.3 mmol/L (20.0-26.0) 04/21/21 15:47 ABG O2 Saturation 96.0 (0-100) 05/02/21 04:34 ABG O2 Content 12.7 (0.0-44) 04/21/21 15:47 POC ABG Base Excess 2.9 05/02/21 04:34 ABG Base Excess 0.3 mmol/L (-2.0-3.0) 04/21/21 15:47 ABG Hemoglobin 11.5 (12.0-17.5) L 05/02/21 04:34 ABG Oxyhemoglobin 95.1 (94-98) 05/02/21 04:34 ABG Carboxyhemoglobin 1.0 % (0.0-5.0) 04/21/21 15:47 ABG Methemoglobin 0.3 (0.0-1.5) 05/02/21 04:34 ABG Sodium 138.6 mmol/L (136.0-145.0) 05/02/21 04:34 ABG Potassium 3.4 mmol/L (3.40-4.50) 05/02/21 04:34 ABG Chloride 105.0 mmol/L (98-107) 05/02/21 04:34 ABG Glucose 122 mg/dL (65-95) H 05/02/21 04:34 VBG pH 7.397 (7.320-7.420) 04/20/21 17:10 Oxyhemoglobin 97.5 % (95.0-99.0) 04/21/21 15:47 Carboxyhemoglobin 0.6 (0.5-1.5) 05/02/21 04:34 FiO2 100 % 04/21/21 15:47 FiO2 % 40.0 05/02/21 04:34 Sodium 149 mmol/L (137-145) H 05/11/21 05:40 Potassium 3.8 mmol/L (3.6-5.0) 05/11/21 05:40 Chloride 112.0 mmol/L (98-107) H 05/11/21 05:40 Carbon Dioxide 28 mmol/L (22-30) 05/11/21 05:40 Anion Gap 13 mmol/L 05/11/21 05:40 BUN 36 mg/dL (7-17) H 05/11/21 05:40 Creatinine 1.4 mg/dL (0.6-1.2) H 05/11/21 05:40 Estimated GFR 44 ml/min 05/11/21 05:40 BUN/Creatinine Ratio 26 % 05/11/21 05:40 Glucose 164 mg/dL (65-100) H 05/11/21 05:40 POC Glucose 176 mg/dL (70-105) H 05/11/21 11:45 Hemoglobin A1c 17.1 % (4-6) H 04/22/21 15:55 Lactic Acid 1.90 mmol/L (0.7-2.0) 04/20/21 19:56 Calcium 8.8 mg/dL (8.4-10.2) 05/11/21 05:40 Phosphorus 2.90 mg/dL (2.5-4.5) 05/11/21 05:40 Magnesium 2.00 mg/dL (1.7-2.3) 05/11/21 05:40 Iron 62 ug/dL (37-170) 04/24/21 17:29 TIBC 285 mcg/dL (250-450) 04/24/21 17:29 % Saturation 21.75 % 04/24/21 17:29 Transferrin 112 mg/dl (192-382) L 04/24/21 17:29 Total Bilirubin 0.20 mg/dL (0.1-1.2) 05/03/21 04:00 Direct Bilirubin < 0.2 mg/dL (0-0.2) 04/29/21 04:00 Indirect Bilirubin 0.1 mg/dL 04/29/21 04:00 AST 53 units/L (5-40) H 05/03/21 04:00 ALT 55 units/L (7-56) 05/03/21 04:00 Alkaline Phosphatase 149 units/L (35-129) H 05/03/21 04:00 Ammonia 29.0 umol/L (25-60) 04/20/21 17:10 Total Creatine Kinase 1000 units/L (30-135) H 04/27/21 07:43 CK-MB (CK-2) 36.0 ng/mL (0.0-4.0) H 04/20/21 17:10 CK-MB (CK-2) Rel Index 0.9 (0-4) 04/20/21 17:10 Troponin T 0.021 ng/mL (0.00-0.029) 04/20/21 17:10 Serum Total Protein 5.5 g/dL (6.1-8.1) L 04/22/21 08:59 Total Protein 5.2 g/dL (6.3-8.2) L 05/03/21 04:00 Albumin 1.5 g/dL (3.9-5) L 05/03/21 04:00 Albumin/Globulin Ratio 0.4 % 05/03/21 04:00 Tspch-3-Egwqbumqu 0.6 g/dL (0.2-0.3) H 04/22/21 08:59 Xitto-9-Rpqrlotfq 1.0 g/dL (0.5-0.9) H 04/22/21 08:59 Beta Globulins 0.3 g/dL (0.2-0.5) 04/22/21 08:59 Gamma Globulins 0.6 g/dL (0.8-1.7) L 04/22/21 08:59 Abnorm Protein Band 1 see below 04/22/21 08:59 PEP Interpretation see below H 04/22/21 08:59 Triglycerides 80 mg/dL (2-149) 05/04/21 04:48 Cholesterol 90 mg/dL (50-199) 05/04/21 04:48 LDL Cholesterol Direct 51 mg/dL (50-130) 05/04/21 04:48 HDL Cholesterol 24 mg/dL (40-59) L 05/04/21 04:48 Cholesterol/HDL Ratio 3.75 % 05/04/21 04:48 Serotonin Release Assay See scanned result 04/24/21 17:29 TSH 6.040 mlU/mL (0.270-4.200) H 04/20/21 17:10 Free T4 0.93 ng/dL (0.76-1.46) 04/20/21 17:10 Arterial Blood Glucose 122 mg/dL (65-95) H 05/02/21 04:34 Arterial Blood Ionized Calcium 4.5 mg/dL (4.6-5.3) L 04/28/21 05:18 Urine Color Yellow (Yellow) 04/29/21 13:30 Urine Turbidity Turbid (Clear) 04/29/21 13:30 Urine pH 5.0 (5.0-7.0) 04/29/21 13:30 Ur Specific [place] 1.010 (1.003-1.030) 04/29/21 13:30 Urine Protein 100 mg/dl mg/dL (Negative) 04/29/21 13:30 Urine Glucose (UA) 150 mg/dL (Negative) 04/29/21 13:30 Urine Ketones Neg mg/dL (Negative) 04/29/21 13:30 Urine Blood Lg (Negative) 04/29/21 13:30 Urine Nitrite Neg (Negative) 04/29/21 13:30 Urine Bilirubin Neg (Negative) 04/29/21 13:30 Urine Urobilinogen < 2.0 mg/dL (<2.0) 04/29/21 13:30 Ur Leukocyte Esterase Lg (Negative) 04/29/21 13:30 Urine WBC (Auto) > 182.0 /HPF (0.0-6.0) H 04/29/21 13:30 Urine RBC (Auto) > 182.0 /HPF (0.0-6.0) 04/29/21 13:30 U Epithel Cells (Auto) 4.0 /HPF (0-13.0) 04/29/21 13:30 Urine WBC Clumps 3+ /HPF 04/29/21 13:30 Urine Mucus Few /HPF 04/29/21 13:30 Urine Yeast (Budding) 3+ /HPF 04/29/21 13:30 Urine Osmolality 446 Mosm/kg 04/21/21 08:01 Urine Total Volume 1700 ml 05/08/21 09:34 Urine Creatinine 56.0 mg/dL (0.1-20.0) H 05/08/21 09:34 Ur Creatinine 24 Hour 1.0 (0.8-2.8) 05/08/21 09:34 Urine Sodium 71 mmol/L 04/21/21 08:01 Urine Total Protein 12 mg/dL (5-11.8) H 04/21/21 08:01 CSF Appearance Clear 04/29/21 11:45 CSF Color Colorless 04/29/21 11:45 CSF WBC 14 /mm3 (1-10) 04/29/21 11:45 CSF RBC 324 /mm3 (0-0) 04/29/21 11:45 CSF Seg Neutrophils 50.0 % (0-6) 04/29/21 11:45 CSF Lymphocytes % 40.0 % (40-80) 04/29/21 11:45 CSF Reactive Lymphs Not Reportable 04/29/21 11:45 CSF Monocytes % 10.0 % (15-45) 04/29/21 11:45 CSF Eosinophils % Not Reportable 04/29/21 11:45 CSF Basophils Not Reportable 04/29/21 11:45 CSF Pathologist Review C 04/29/21 11:45 CSF Glucose 161 mg/dL 04/29/21 11:45 CSF Total Protein 51 mg/dL 04/29/21 11:45 Plasma/Serum Alcohol < 0.01 % (0-0.07) 04/20/21 17:10 Heparin-induced Plt Ab Negative (Negative) 04/24/21 17:29 UF Heparin High Dose 1 % Release 04/24/21 17:29 EFE UFH Low Dose 0.1 0 % Release 04/24/21 17:29 EFE UFH Low Dose 0.5 0 % Release 04/24/21 17:29 Coronavirus (PCR) Negative (Negative) 04/21/21 Unknown Hepatitis A IgM Ab Non-reactive (NonReactive) 04/27/21 12:49 Hep Bs Antigen Nonreactive (Negative) 04/27/21 12:49 Hep B Core IgM Ab Non-reactive (NonReactive) 04/27/21 12:49 Hepatitis C Antibody Non-reactive (NonReactive) 04/27/21 12:49 Blood Type O POSITIVE 05/02/21 12:00 Antibody Screen Negative 05/02/21 12:00 Crossmatch See Detail 05/02/21 12:00 Luther/IV: Voiding Method Indwelling Catheter Active Medications - Current Medications Current Medications: Generic Name Dose Route Start Last Admin Trade Name Freq PRN Reason Stop Dose Admin Acetaminophen 650 mg 04/20/21 21:31 05/01/21 18:15 Acetaminophen 325 Mg Tab PO 650 mg Q4H PRN Administration Pain MILD(1-3)/Fever >100.5/TURCIOS Albumin Human 25 gm 05/06/21 16:06 05/06/21 16:21 Albumin Human 25% (25 Gm/100 Ml) Inj IV 25 gm MITCH PRN Administration Hypotension Albuterol 2.5 mg 04/22/21 14:49 04/23/21 15:18 Albuterol 2.5 Mg/3 Ml Nebu IH 2.5 mg Q4HRT PRN Administration Shortness Of Breath Lipase/Protease/Amylase 1 each 04/25/21 14:13 Lipase 10,500/Protease 25,000/Amylase 43,750 (Units) Dr Vasquez FEEDTUBE PRN PRN For Clogged Feeding Tube Aspirin 81 mg 05/04/21 10:00 05/11/21 09:45 Aspirin 81 Mg Tab Chew FEEDTUBE 81 mg QDAY AZIZA Administration Atorvastatin Calcium 40 mg 05/04/21 22:00 05/10/21 21:19 Atorvastatin 40 Mg Tab FEEDTUBE 40 mg QHS AZIZA Administration Dextrose 50 ml 04/24/21 11:36 Dextrose 50% In Water (25gm) 50 Ml Syringe IV Q30MIN PRN Hypoglycemia Protocol Famotidine 10 mg 04/27/21 10:00 05/11/21 09:45 Famotidine 10 Mg Tab FEEDTUBE 10 mg BID AZIZA Administration Heparin Sodium (Porcine) 5,000 unit 05/10/21 22:00 05/11/21 09:45 Heparin 5,000 Unit/1 Ml Vial SUB-Q 5,000 unit Q12HR AZIZA Administration Hydralazine HCl 10 mg 04/24/21 21:22 05/11/21 10:52 Hydralazine 20 Mg/1 Ml Inj IV 10 mg Q4HR PRN Administration SBP >/=170 Hydrophilic Ointment 1 applic 04/26/21 11:16 Lip Therapy Vaseline TP Q2HR PRN Dry Lips NORepinephrine/NS 8 MG-250 ML 8 mg in 250 mls @ 3.75 mls/hr 04/26/21 16:00 05/04/21 21:34 Norepinephrine/Ns 8 Mg-250 Ml (Double Conc) IV 0 mcg/min TITRATE AZIZA 0 mls/hr Titration Protocol 2 MCG/MIN Sodium Chloride 100 mls @ 999 mls/hr 05/06/21 16:06 Nacl 0.9% IV MITCH PRN Hypotension Insulin Human Lispro 0 unit 04/25/21 18:00 05/11/21 12:45 Insulin Lispro 100 Unit/Ml SUB-Q 3 unit Q6HR AZIZA Administration Protocol Levothyroxine Sodium 50 mcg 05/03/21 06:00 05/11/21 05:49 Levothyroxine 50 Mcg Tab PO 50 mcg DAILY@0600 AZIZA Administration Lorazepam 1 mg 04/26/21 11:15 05/10/21 10:46 Lorazepam 2 Mg/Ml Vial IV 1 mg Q4H PRN Administration Sedation Metoclopramide HCl 5 mg 04/20/21 21:31 Metoclopramide 10 Mg/2 Ml Inj IV Q6H PRN Nausea And Vomiting Multi-Ingred Cream/Lotion/Oil/Oint 1 applic 04/26/21 11:16 Mineral Oil/Petrolatum, White Ophth Oint 3.5 Gm OU Q4HR PRN Dry Eye(s) Ondansetron HCl 4 mg 04/20/21 21:31 Ondansetron 4 Mg/2 Ml Inj IV Q8H PRN Nausea And Vomiting Senna/Docusate Sodium 1 tab 04/26/21 22:00 05/11/21 09:45 Sennosides/Docusate Sodium 8.6/50 Mg Tab FEEDTUBE 1 tab BID AZIZA Administration Simple Syrup 15 ml 04/25/21 14:13 Simple Syrup 15 Ml FEEDTUBE PRN PRN Hypoglycemia Simple Syrup 30 ml 04/25/21 14:13 Simple Syrup 15 Ml FEEDTUBE PRN PRN Hypoglycemia Sodium Bicarbonate 325 mg 04/25/21 14:13 04/27/21 13:00 Sodium Bicarbonate 325 Mg Tab FEEDTUBE 325 mg PRN PRN Administration For Clogged Feeding Tube Sodium Bicarbonate 1,300 mg 04/27/21 14:00 05/11/21 09:45 Sodium Bicarbonate 650 Mg Tab PO 1,300 mg TID AZIZA Administration Sodium Chloride 10 ml 04/20/21 22:00 05/11/21 10:52 Sodium Chloride 0.9% 10 Ml Flush Syringe IV 10 ml BID AZIZA Administration Sodium Chloride 10 ml 04/20/21 21:31 Sodium Chloride 0.9% 10 Ml Flush Syringe IV PRN PRN LINE FLUSH Nutrition/Malnutrition Assess - Dietary Evaluation Nutrition/Malnutrition Findings: Nutrition Notes Start: 04/21/21 12:15 Freq: Status: Active Protocol: Document 05/04/21 16:15 JOSE (Rec: 05/04/21 16:26 JOSE [id number]) Nutrition Notes Initial or Follow up Brief Note Current Diet TF-Nepro w/CARBSTEADY @ 32 ml/ hr (since 04/29). Height 5 ft 2 in Weight 72.4 kg [place] Body Weight (kg) 50.00 BMI 29.2 Weight change and time frame No body weight change reported . Weight Status Overweight Subjective/Other Information RD consult for routine F/U on TF tolerance. TF continues as prescribed, therefore, well tolerated. Percent of energy/protein needs met: Prescribed TF-Nepro w/ CARBSTEADY @ 32 ml/hr provides for energy/protein needs (1, 389 Kcal/63 g) during LOS, 100 % Kcal; 72% AA. Current % PO Other Minimum of two criteria No #1 Nutrition Diagnosis Inadequate oral intake Diagnosis Progress(for reassessment Continues documentation) Nutrition Intervention Nutrition Support: Continue TF to Nepro w/ CARBSTEADY @ 32 ml/hr. Flush: 140 ml water Q 4 hr, or as per MD. % RDI: 100% Kcal; 72% AA. Goal #1 Provide at least 75% of energy /protein needs through Enteral Feeding during LOS. Follow-Up By: 05/11/21 Additional Comments Continue monitoring TF tolerance and BM. <TACHO RUBALCAVA - Last Filed: 05/14/21 12:15> Assessment and Plan Assessment and plan: I saw and evaluated the patient. Discussed with the nurse practitioner and agree with their findings and plan as documented in this note. Hospitalist Physical - Constitutional Vitals: Temp Pulse Resp BP Pulse Ox 99.9 F H 95 H 14 123/54 100 05/14/21 11:22 05/14/21 11:31 05/14/21 11:31 05/14/21 11:31 05/14/21 11:31 HEART Score - HEART Score Troponin: Troponin T 0.021 ng/mL (0.00-0.029) 04/20/21 17:10 Results - Labs CBC & Chem 7: 05/14/21 04:43 05/14/21 04:43 Labs: Laboratory Last Values WBC 10.1 K/mm3 (4.5-11.0) 05/14/21 04:43 RBC 3.02 M/mm3 (3.65-5.03) L 05/14/21 04:43 Hgb 8.3 gm/dl (10.1-14.3) L 05/14/21 04:43 Hct 25.6 % (30.3-42.9) L 05/14/21 04:43 MCV 85 fl (79-97) 05/14/21 04:43 MCH 28 pg (28-32) 05/14/21 04:43 MCHC 33 % (30-34) 05/14/21 04:43 RDW 15.5 % (13.2-15.2) H 05/14/21 04:43 Plt Count 482 K/mm3 (140-440) H 05/14/21 04:43 Add Manual Diff Complete 04/28/21 04:00 Total Counted 100 04/28/21 04:00 Seg Neutrophils % [place] 04/28/21 04:00 Seg Neuts % (Manual) 77.0 % (40.0-70.0) H 04/26/21 09:33 Band Neutrophils % 2.0 % 04/28/21 04:00 Lymphocytes % (Manual) 1.0 % (13.4-35.0) L 04/28/21 04:00 Reactive Lymphs % (Man) 0 % 04/28/21 04:00 Monocytes % (Manual) 1.0 % (0.0-7.3) 04/28/21 04:00 Eosinophils % (Manual) 3.0 % (0.0-4.3) 04/28/21 04:00 Metamyelocytes % 1.0 % 04/28/21 04:00 Myelocytes % 0 % 04/28/21 04:00 Promyelocytes % 0 % 04/28/21 04:00 Blast Cells % 0 % 04/28/21 04:00 Nucleated RBC % 4.0 % (0.0-0.9) H 04/28/21 04:00 Seg Neutrophils # Man 11.6 K/mm3 (1.8-7.7) H 04/28/21 04:00 Band Neutrophils # 0.3 K/mm3 04/28/21 04:00 Lymphocytes # (Manual) 0.1 K/mm3 (1.2-5.4) L 04/28/21 04:00 Abs React Lymphs (Man) 0.0 K/mm3 04/28/21 04:00 Monocytes # (Manual) 0.1 K/mm3 (0.0-0.8) 04/28/21 04:00 Eosinophils # (Manual) 0.4 K/mm3 (0.0-0.4) 04/28/21 04:00 Basophils # (Manual) 0.0 K/mm3 (0.0-0.1) 04/28/21 04:00 Metamyelocytes # 0.1 K/mm3 04/28/21 04:00 Myelocytes # 0.0 K/mm3 04/28/21 04:00 Promyelocytes # 0.0 K/mm3 04/28/21 04:00 Blast Cells # 0.0 K/mm3 04/28/21 04:00 WBC Morphology Not Reportable 04/28/21 04:00 Hypersegmented Neuts Not Reportable 04/28/21 04:00 Hyposegmented Neuts Not Reportable 04/28/21 04:00 Hypogranular Neuts Not Reportable 04/28/21 04:00 Smudge Cells Not Reportable 04/28/21 04:00 Toxic Granulation Not Reportable 04/28/21 04:00 Toxic Vacuolation Not Reportable 04/28/21 04:00 Dohle Bodies Not Reportable 04/28/21 04:00 Pelger-Huet Anomaly Not Reportable 04/28/21 04:00 Moni Rods Not Reportable 04/28/21 04:00 Platelet Estimate Consistent w auto 04/28/21 04:00 Clumped Platelets Not Reportable 04/28/21 04:00 Plt Clumps, EDTA Not Reportable 04/28/21 04:00 Large Platelets Few 04/28/21 04:00 Giant Platelets Not Reportable 04/28/21 04:00 Platelet Satelliting Not Reportable 04/28/21 04:00 Plt Morphology Comment Not Reportable 04/28/21 04:00 RBC Morphology Not Reportable 04/28/21 04:00 Dimorphic RBCs Not Reportable 04/28/21 04:00 Polychromasia Not Reportable 04/28/21 04:00 Hypochromasia Not Reportable 04/28/21 04:00 Poikilocytosis Not Reportable 04/28/21 04:00 Anisocytosis Not Reportable 04/28/21 04:00 Microcytosis Not Reportable 04/28/21 04:00 Macrocytosis Not Reportable 04/28/21 04:00 Spherocytes Not Reportable 04/28/21 04:00 Pappenheimer Bodies Not Reportable 04/28/21 04:00 Sickle Cells Not Reportable 04/28/21 04:00 Target Cells 1+ 04/28/21 04:00 Tear Drop Cells Not Reportable 04/28/21 04:00 Ovalocytes Not Reportable 04/28/21 04:00 Helmet Cells Not Reportable 04/28/21 04:00 [place] Bodies Not Reportable 04/28/21 04:00 [place] Rings Not Reportable 04/28/21 04:00 [place] Cells Not Reportable 04/28/21 04:00 Bite Cells Not Reportable 04/28/21 04:00 Crenated Cell Not Reportable 04/28/21 04:00 Elliptocytes Not Reportable 04/28/21 04:00 Acanthocytes (Spur) Not Reportable 04/28/21 04:00 Rouleaux Not Reportable 04/28/21 04:00 Hemoglobin C Crystals Not Reportable 04/28/21 04:00 Schistocytes Not Reportable 04/28/21 04:00 Malaria parasites Not Reportable 04/28/21 04:00 Herrera Bodies Not Reportable 04/28/21 04:00 Hem Pathologist Commnt No 04/28/21 04:00 PT 14.7 Sec. (12.2-14.9) 05/13/21 04:24 INR 1.04 (0.87-1.13) 05/13/21 04:24 APTT 36.6 Sec. (24.2-36.6) 04/28/21 05:00 Heparin Anti-Xa, Unfract Negative (Negative) 04/24/21 17:29 ABG pH 7.487 (7.320-7.450) H 05/02/21 04:34 POC ABG pCO2 35.3 mmHg (32.0-48.0) 05/02/21 04:34 ABG pCO2 31.6 mm Hg 04/21/21 15:47 POC ABG pO2 78.6 mmHg (83-108) L 05/02/21 04:34 ABG pO2 168.1 mm Hg (80.0-90.0) H 04/21/21 15:47 POC ABG HCO3 26.1 05/02/21 04:34 ABG HCO3 23.3 mmol/L (20.0-26.0) 04/21/21 15:47 ABG O2 Saturation 96.0 (0-100) 05/02/21 04:34 ABG O2 Content 12.7 (0.0-44) 04/21/21 15:47 POC ABG Base Excess 2.9 05/02/21 04:34 ABG Base Excess 0.3 mmol/L (-2.0-3.0) 04/21/21 15:47 ABG Hemoglobin 11.5 (12.0-17.5) L 05/02/21 04:34 ABG Oxyhemoglobin 95.1 (94-98) 05/02/21 04:34 ABG Carboxyhemoglobin 1.0 % (0.0-5.0) 04/21/21 15:47 ABG Methemoglobin 0.3 (0.0-1.5) 05/02/21 04:34 ABG Sodium 138.6 mmol/L (136.0-145.0) 05/02/21 04:34 ABG Potassium 3.4 mmol/L (3.40-4.50) 05/02/21 04:34 ABG Chloride 105.0 mmol/L (98-107) 05/02/21 04:34 ABG Glucose 122 mg/dL (65-95) H 05/02/21 04:34 VBG pH 7.397 (7.320-7.420) 04/20/21 17:10 Oxyhemoglobin 97.5 % (95.0-99.0) 04/21/21 15:47 Carboxyhemoglobin 0.6 (0.5-1.5) 05/02/21 04:34 FiO2 100 % 04/21/21 15:47 FiO2 % 40.0 05/02/21 04:34 Sodium 138 mmol/L (137-145) 05/14/21 04:43 Potassium 4.0 mmol/L (3.6-5.0) 05/14/21 04:43 Chloride 104.1 mmol/L (98-107) 05/14/21 04:43 Carbon Dioxide 23 mmol/L (22-30) 05/14/21 04:43 Anion Gap 15 mmol/L 05/14/21 04:43 BUN 29 mg/dL (7-17) H 05/14/21 04:43 Creatinine 1.2 mg/dL (0.6-1.2) 05/14/21 04:43 Estimated GFR 52 ml/min 05/14/21 04:43 BUN/Creatinine Ratio 24 % 05/14/21 04:43 Glucose 192 mg/dL (65-100) H 05/14/21 04:43 POC Glucose 215 mg/dL (70-105) H 05/14/21 10:59 Hemoglobin A1c 17.1 % (4-6) H 04/22/21 15:55 Lactic Acid 1.90 mmol/L (0.7-2.0) 04/20/21 19:56 Calcium 8.1 mg/dL (8.4-10.2) L 05/14/21 04:43 Phosphorus 3.20 mg/dL (2.5-4.5) 05/14/21 04:43 Magnesium 2.20 mg/dL (1.7-2.3) 05/14/21 04:43 Iron 62 ug/dL (37-170) 04/24/21 17:29 TIBC 285 mcg/dL (250-450) 04/24/21 17:29 % Saturation 21.75 % 04/24/21 17:29 Transferrin 112 mg/dl (192-382) L 04/24/21 17:29 Total Bilirubin 0.20 mg/dL (0.1-1.2) 05/03/21 04:00 Direct Bilirubin < 0.2 mg/dL (0-0.2) 04/29/21 04:00 Indirect Bilirubin 0.1 mg/dL 04/29/21 04:00 AST 53 units/L (5-40) H 05/03/21 04:00 ALT 55 units/L (7-56) 05/03/21 04:00 Alkaline Phosphatase 149 units/L (35-129) H 05/03/21 04:00 Ammonia 29.0 umol/L (25-60) 04/20/21 17:10 Total Creatine Kinase 1000 units/L (30-135) H 04/27/21 07:43 CK-MB (CK-2) 36.0 ng/mL (0.0-4.0) H 04/20/21 17:10 CK-MB (CK-2) Rel Index 0.9 (0-4) 04/20/21 17:10 Troponin T 0.021 ng/mL (0.00-0.029) 04/20/21 17:10 Serum Total Protein 5.5 g/dL (6.1-8.1) L 04/22/21 08:59 Total Protein 5.2 g/dL (6.3-8.2) L 05/03/21 04:00 Albumin 1.5 g/dL (3.9-5) L 05/03/21 04:00 Albumin/Globulin Ratio 0.4 % 05/03/21 04:00 Fpkea-6-Itbojpckb 0.6 g/dL (0.2-0.3) H 04/22/21 08:59 Txazz-9-Ttevyywyf 1.0 g/dL (0.5-0.9) H 04/22/21 08:59 Beta Globulins 0.3 g/dL (0.2-0.5) 04/22/21 08:59 Gamma Globulins 0.6 g/dL (0.8-1.7) L 04/22/21 08:59 Abnorm Protein Band 1 see below 04/22/21 08:59 PEP Interpretation see below H 04/22/21 08:59 Triglycerides 80 mg/dL (2-149) 05/04/21 04:48 Cholesterol 90 mg/dL (50-199) 05/04/21 04:48 LDL Cholesterol Direct 51 mg/dL (50-130) 05/04/21 04:48 HDL Cholesterol 24 mg/dL (40-59) L 05/04/21 04:48 Cholesterol/HDL Ratio 3.75 % 05/04/21 04:48 Serotonin Release Assay See scanned result 04/24/21 17:29 TSH 6.040 mlU/mL (0.270-4.200) H 04/20/21 17:10 Free T4 0.93 ng/dL (0.76-1.46) 04/20/21 17:10 Arterial Blood Glucose 122 mg/dL (65-95) H 05/02/21 04:34 Arterial Blood Ionized Calcium 4.5 mg/dL (4.6-5.3) L 04/28/21 05:18 Urine Color Yellow (Yellow) 04/29/21 13:30 Urine Turbidity Turbid (Clear) 04/29/21 13:30 Urine pH 5.0 (5.0-7.0) 04/29/21 13:30 Ur Specific [place] 1.010 (1.003-1.030) 04/29/21 13:30 Urine Protein 100 mg/dl mg/dL (Negative) 04/29/21 13:30 Urine Glucose (UA) 150 mg/dL (Negative) 04/29/21 13:30 Urine Ketones Neg mg/dL (Negative) 04/29/21 13:30 Urine Blood Lg (Negative) 04/29/21 13:30 Urine Nitrite Neg (Negative) 04/29/21 13:30 Urine Bilirubin Neg (Negative) 04/29/21 13:30 Urine Urobilinogen < 2.0 mg/dL (<2.0) 04/29/21 13:30 Ur Leukocyte Esterase Lg (Negative) 04/29/21 13:30 Urine WBC (Auto) > 182.0 /HPF (0.0-6.0) H 04/29/21 13:30 Urine RBC (Auto) > 182.0 /HPF (0.0-6.0) 04/29/21 13:30 U Epithel Cells (Auto) 4.0 /HPF (0-13.0) 04/29/21 13:30 Urine WBC Clumps 3+ /HPF 04/29/21 13:30 Urine Mucus Few /HPF 04/29/21 13:30 Urine Yeast (Budding) 3+ /HPF 04/29/21 13:30 Urine Osmolality 446 Mosm/kg 04/21/21 08:01 Urine Total Volume 1700 ml 05/08/21 09:34 Urine Creatinine 56.0 mg/dL (0.1-20.0) H 05/08/21 09:34 Ur Creatinine 24 Hour 1.0 (0.8-2.8) 05/08/21 09:34 Urine Sodium 71 mmol/L 04/21/21 08:01 Urine Total Protein 12 mg/dL (5-11.8) H 04/21/21 08:01 CSF Appearance Clear 04/29/21 11:45 CSF Color Colorless 04/29/21 11:45 CSF WBC 14 /mm3 (1-10) 04/29/21 11:45 CSF RBC 324 /mm3 (0-0) 04/29/21 11:45 CSF Seg Neutrophils 50.0 % (0-6) 04/29/21 11:45 CSF Lymphocytes % 40.0 % (40-80) 04/29/21 11:45 CSF Reactive Lymphs Not Reportable 04/29/21 11:45 CSF Monocytes % 10.0 % (15-45) 04/29/21 11:45 CSF Eosinophils % Not Reportable 04/29/21 11:45 CSF Basophils Not Reportable 04/29/21 11:45 CSF Pathologist Review C 04/29/21 11:45 CSF Glucose 161 mg/dL 04/29/21 11:45 CSF Total Protein 51 mg/dL 04/29/21 11:45 Plasma/Serum Alcohol < 0.01 % (0-0.07) 04/20/21 17:10 Heparin-induced Plt Ab Negative (Negative) 04/24/21 17:29 UF Heparin High Dose 1 % Release 04/24/21 17:29 EFE UFH Low Dose 0.1 0 % Release 04/24/21 17:29 EFE UFH Low Dose 0.5 0 % Release 04/24/21 17:29 Coronavirus (PCR) Negative (Negative) 04/21/21 Unknown Hepatitis A IgM Ab Non-reactive (NonReactive) 04/27/21 12:49 Hep Bs Antigen Nonreactive (Negative) 04/27/21 12:49 Hep B Core IgM Ab Non-reactive (NonReactive) 04/27/21 12:49 Hepatitis C Antibody Non-reactive (NonReactive) 04/27/21 12:49 Blood Type O POSITIVE 05/02/21 12:00 Antibody Screen Negative 05/02/21 12:00 Crossmatch See Detail 05/02/21 12:00 Microbiology: Microbiology 05/02/21 Unknown Urine,Catheterized - Indwelling Catheter Urine Culture - Final Roselyn Tropicalis Luther/IV: Voiding Method Indwelling Catheter Active Medications - Current Medications Current Medications: Generic Name Dose Route Start Last Admin Trade Name Freq PRN Reason Stop Dose Admin Acetaminophen 650 mg 04/20/21 21:31 05/14/21 09:50 Acetaminophen 325 Mg Tab PO 650 mg Q4H PRN Administration Pain MILD(1-3)/Fever >100.5/TURCIOS Albumin Human 25 gm 05/06/21 16:06 05/06/21 16:21 Albumin Human 25% (25 Gm/100 Ml) Inj IV 25 gm MITCH PRN Administration Hypotension Albuterol 2.5 mg 04/22/21 14:49 04/23/21 15:18 Albuterol 2.5 Mg/3 Ml Nebu IH 2.5 mg Q4HRT PRN Administration Shortness Of Breath Amlodipine Besylate 5 mg 05/12/21 10:00 05/14/21 09:49 Amlodipine 5 Mg Tab PO 5 mg QDAY AZIZA Administration Lipase/Protease/Amylase 1 each 04/25/21 14:13 Lipase 10,500/Protease 25,000/Amylase 43,750 (Units) Dr Vasquez FEEDTUBE PRN PRN For Clogged Feeding Tube Aspirin 81 mg 05/04/21 10:00 05/14/21 09:50 Aspirin 81 Mg Tab Chew FEEDTUBE 81 mg QDAY AZIZA Administration Atorvastatin Calcium 40 mg 05/04/21 22:00 05/13/21 21:39 Atorvastatin 40 Mg Tab FEEDTUBE 40 mg QHS AZIZA Administration Dextrose 50 ml 04/24/21 11:36 Dextrose 50% In Water (25gm) 50 Ml Syringe IV Q30MIN PRN Hypoglycemia Protocol Famotidine 10 mg 04/27/21 10:00 05/14/21 09:50 Famotidine 10 Mg Tab FEEDTUBE 10 mg BID AZIZA Administration Heparin Sodium (Porcine) 5,000 unit 05/10/21 22:00 05/14/21 09:50 Heparin 5,000 Unit/1 Ml Vial SUB-Q 5,000 unit Q12HR AZIZA Administration Hydrophilic Ointment 1 applic 04/26/21 11:16 Lip Therapy Vaseline TP Q2HR PRN Dry Lips Sodium Chloride 1,000 mls @ 100 mls/hr 05/14/21 08:30 05/14/21 09:53 Nacl 0.9% 1000 Ml IV 05/14/21 18:29 100 mls/hr DIRECT AZIZA Administration Insulin Human Lispro 0 unit 04/25/21 18:00 05/14/21 12:05 Insulin Lispro 100 Unit/Ml SUB-Q 4 unit Q6HR AZIZA Administration Protocol Labetalol HCl 20 mg 05/12/21 11:34 05/12/21 21:35 Labetalol 20 Mg/4 Ml Inj IV 20 mg Q4H PRN Administration SBP >/=170 Levothyroxine Sodium 50 mcg 05/03/21 06:00 05/14/21 05:27 Levothyroxine 50 Mcg Tab PO 50 mcg DAILY@0600 AZIZA Administration Lorazepam 1 mg 04/26/21 11:15 05/12/21 16:27 Lorazepam 2 Mg/Ml Vial IV 1 mg Q4H PRN Administration Sedation Metoclopramide HCl 5 mg 04/20/21 21:31 Metoclopramide 10 Mg/2 Ml Inj IV Q6H PRN Nausea And Vomiting Multi-Ingred Cream/Lotion/Oil/Oint 1 applic 04/26/21 11:16 Mineral Oil/Petrolatum, White Ophth Oint 3.5 Gm OU Q4HR PRN Dry Eye(s) Ondansetron HCl 4 mg 04/20/21 21:31 Ondansetron 4 Mg/2 Ml Inj IV Q8H PRN Nausea And Vomiting Senna/Docusate Sodium 1 tab 04/26/21 22:00 05/14/21 09:50 Sennosides/Docusate Sodium 8.6/50 Mg Tab FEEDTUBE 1 tab BID AZIZA Administration Simple Syrup 15 ml 04/25/21 14:13 Simple Syrup 15 Ml FEEDTUBE PRN PRN Hypoglycemia Simple Syrup 30 ml 04/25/21 14:13 Simple Syrup 15 Ml FEEDTUBE PRN PRN Hypoglycemia Sodium Bicarbonate 325 mg 04/25/21 14:13 04/27/21 13:00 Sodium Bicarbonate 325 Mg Tab FEEDTUBE 325 mg PRN PRN Administration For Clogged Feeding Tube Sodium Bicarbonate 1,300 mg 04/27/21 14:00 05/14/21 08:48 Sodium Bicarbonate 650 Mg Tab PO 1,300 mg TID AZIZA Administration Sodium Chloride 10 ml 04/20/21 22:00 05/14/21 09:51 Sodium Chloride 0.9% 10 Ml Flush Syringe IV 10 ml BID AZIZA Administration Sodium Chloride 10 ml 04/20/21 21:31 Sodium Chloride 0.9% 10 Ml Flush Syringe IV PRN PRN LINE FLUSH Nutrition/Malnutrition Assess - Dietary Evaluation Nutrition/Malnutrition Findings: Nutrition Notes Start: 04/21/21 12:15 Freq: Status: Active Protocol: Document 05/13/21 15:36 TAMMY (Rec: 05/13/21 15:47 TAMMY [id number]) Nutrition Notes Initial or Follow up Reassessment Current Diagnosis Sepsis,Respiratory Failure, Stroke Other Pertinent Diagnosis Acute metabolic encephalopathy , pneu, UTI Current Diet NPO Labs/Tests BUN 30 Mg 1.6 Pertinent Medications Mag sulfate x 1 dose Height 5 ft 2 in Weight 72.4 kg [place] Body Weight (kg) 50.00 BMI 29.2 Weight Status Overweight Subjective/Other Information Pt remains on vent support. TF off; pt scheduled for trach and PEG placement today. Unable to place PEG sec to suspected anatomical abnormality. Interventional radiology consulted for PEG placement. Per nephrology, SYED resolving; no indication for HD as VasCath has been removed. Minimum of two criteria No #1 Nutrition Diagnosis Inadequate oral intake Diagnosis Progress(for reassessment Continues documentation) Is patient on ventilator? Yes Is Patient Ambulatory and/or Out of Bed No [place] [phone] Calculation Used for Recommendations [facility] Additional Notes Pro needs 1.2-2g/k-145g/ day Fluid needs 1ml/kcal Nutrition Intervention Nutrition Support: When feasible, resume TF, but change formula to Glucerna 1.2 at 50ml/hr with 80ml water flush q4h. Goal #1 Resume TF to meet nutrient needs Follow-Up By: 05/16/21 Additional Comments F/U: PEG placement, TF restart with Glucerna 1.2, vent status
--- NOTE | 2021-05-11 14:20 | Progress Note ---
Assessment and Plan 80 y/o female with altered mental state, severe electrolyte imbalance with presumptive acute renal failure and hypothermia. 05/11/21: Awaiting trach and peg placement. Discontinue vascath. Daily pSV trials. 05/10/21: Long discussion over phone with POA. Discussed what I felt was prognosis. Per POA, feels best thing to do at this moment is proceed with trach and peg. Will consult surgery for this. Spoke with renal and they feel she likely will not need HD anymore. Will keep catheter at least another 24-36 hours and likely remove sometime tomorrow. Continue daily PSV and other supportive measures. Placement post Trach. 05/09/21: Will reach out to neuro for more help. Read their note this am but need a definite plan. Would like to meet/talk with POA about next steps but need a better idea of what her neuro prognosis is. Continue daily PSV trials. Prognosis overall appears to be very guarded to poor. 05/08/21: Continue supportive measures. HD per renal. Follow up neuro recs tomorrow. Need to start talking with family about next steps but need neuro input. Daily pSV to document failing. 05/07/21: Continue supportive measures. HD per renal. Follow up neuro recs tomorrow. Need to start talking with family about next steps but need neuro input. 05/06/21: Await neurology recs now that LINCOLN Could not be done. Based on neurology note, no direct source for stroke on MRA. Patient was seen on this day and can be confirmed by staff. Not sure why my note did not save. 05/05/21: follow up neurology notes. They are discussing with cards the LINCOLN. Continue vent support. Poor prognosis. 05/04/21: follow up MRA when done. LINCOLN pending. HD per renal. Daily PSV trials as tolerated. Poor prognosis given MRI findings and lack of responsiveness off sedation. 05/03/21: Follow up Neurology recs for today. Attempt PSV trials. HD on yesterday. Very very guarded prognosis. 05/02/21: MRI today. Repeat cultures. HD per renal. Once MRI results back will discuss with Neurosurgery to see if anything further should be done. Abx per ID. Overall prognosis is very guarded to poor. 04/29/21: Will reach out to neuro after 24-48 hours post spinal tap pending any change in mentation. If improvement, may need to consider shunt placement. If not, not sure that there is anything they can offer. if they still want MRI, then can obtain. Now spiking temps. Blood cultures and UA. Given time frame in Hospital will place on Vanc and Cefepime. Guarded prognosis. HD per renal. Given anasarca, will ask renal about trying to remove volume. 04/28/21: Will discuss with renal about HD again today. MRI vs LP (large amount). Coags are ok. Will attempt to get at least one of these done today. Patient is still on 80% but sat is 100. Will ask [employer] about placing ART line today. Wean FiO2 as tolerated. Guarded prognosis. 04/27/21: HD today per renal. Vascath placed and awaiting CXR for conformation of good placement (done and good). Vent weaning as tolerated for sats >88%. ABG in the AM. Will check Coags in the am and hopeful these are stable. Platelets need to above 50K. Would like to do large volume spinal tap to see if this helps with mentation. Will also obtain MRI once oxygen requirement improves. 04/26/21: WIll electively intubate and then obtain MRI. Pending MRI results, will likely order large volume spinal tap to assess if NPH is a factor or not. Guarded prognosis. Electrolytes are improving. 04/25/21: Continue to follow renal recs. Will reach out to POA either today or tomorrow for further updates. Follow up renal recs. Monitor electrolytes and renal function. Guarded prognosis. 1. Neuro-reached out to neuro surgery, placed consult in regards to CT findings 2. Renal-appreciate help and recs, will follow IV hydration recommendations 3. Blood cultures. Urine was negative 4. Jorge Freidaer for temp Guarded prognosis CCT 31 minutes. Subjective Date of service: 05/11/21 Principal diagnosis: Acute respiratory failure Interval history: No acute events. Eyes open but not following commands. Awaiting scheduling of Trach and Peg. Objective Vital Signs - 12hr 05/11/21 05/11/21 05/11/21 02:30 03:00 03:30 Temperature Pulse Rate 94 H 93 H 94 H Pulse Rate [ From Monitor] Respiratory 23 16 16 Rate Blood Pressure 160/73 152/77 145/72 O2 Sat by Pulse 98 97 98 Oximetry 05/11/21 05/11/21 05/11/21 03:46 04:00 04:30 Temperature 98.4 F Pulse Rate 84 88 94 H Pulse Rate [ 91 H From Monitor] Respiratory 16 17 Rate Blood Pressure 145/72 140/68 165/72 O2 Sat by Pulse 97 97 98 Oximetry 05/11/21 05/11/21 05/11/21 05:00 05:30 06:00 Temperature Pulse Rate 92 H 90 91 H Pulse Rate [ From Monitor] Respiratory 14 15 14 Rate Blood Pressure 166/70 143/66 158/65 O2 Sat by Pulse 98 98 98 Oximetry 05/11/21 05/11/21 05/11/21 06:30 07:00 07:30 Temperature Pulse Rate 94 H 94 H 92 H Pulse Rate [ From Monitor] Respiratory 20 26 H 20 Rate Blood Pressure 161/68 150/71 142/69 O2 Sat by Pulse 99 98 98 Oximetry 05/11/21 05/11/21 05/11/21 08:00 09:00 10:00 Temperature 98.6 F Pulse Rate 100 H 94 H 92 H Pulse Rate [ 88 From Monitor] Respiratory 15 15 15 Rate Blood Pressure 154/76 160/80 163/86 O2 Sat by Pulse 98 98 98 Oximetry 05/11/21 05/11/21 05/11/21 10:30 10:52 11:00 Temperature Pulse Rate 89 88 100 H Pulse Rate [ From Monitor] Respiratory 14 21 Rate Blood Pressure 170/81 170/81 154/76 O2 Sat by Pulse 98 98 Oximetry 05/11/21 05/11/21 05/11/21 11:30 12:00 12:30 Temperature 98.4 F Pulse Rate 106 H 105 H 110 H Pulse Rate [ 100 H From Monitor] Respiratory 24 21 18 Rate Blood Pressure 148/72 150/75 158/73 O2 Sat by Pulse 97 96 97 Oximetry 05/11/21 13:00 Temperature Pulse Rate 104 H Pulse Rate [ From Monitor] Respiratory 21 Rate Blood Pressure 147/70 O2 Sat by Pulse 98 Oximetry Constitutional: other (critically ill, somnolent, on vent) Eyes: non-icteric ENT: oropharynx dry Effort: other (tachypneic but not labored) Ascultation: Bilateral: clear Cardiovascular: regular rate and rhythm Gastrointestinal: normoactive bowel sounds Integumentary: normal Extremities: no cyanosis, no edema, pink and warm Neurologic: unable to assess Psychiatric: other (unable to assess) CBC and BMP: 05/11/21 05:40 05/11/21 05:40 ABG, PT/INR, D-dimer: ABG ABG pH 7.487 (7.320-7.450) H 05/02/21 04:34 POC ABG pCO2 35.3 mmHg (32.0-48.0) 05/02/21 04:34 ABG pCO2 31.6 mm Hg 04/21/21 15:47 POC ABG pO2 78.6 mmHg (83-108) L 05/02/21 04:34 ABG pO2 168.1 mm Hg (80.0-90.0) H 04/21/21 15:47 POC ABG HCO3 26.1 05/02/21 04:34 ABG O2 Saturation 96.0 (0-100) 05/02/21 04:34 PT/INR, D-dimer PT 15.3 Sec. (12.2-14.9) H 04/28/21 05:00 INR 1.09 (0.87-1.13) 04/28/21 05:00 Abnormal lab findings: Abnormal Labs 04/20/21 04/20/21 04/20/21 17:10 17:10 17:10 WBC 17.4 H RBC 5.19 H Hgb Hct 46.8 H MCH 27 L RDW 17.2 H Plt Count Seg Neuts % (Manual) 98.0 H Lymphocytes % (Manual) 2.0 L Nucleated RBC % 1.0 H Seg Neutrophils # Man 17.1 H Lymphocytes # (Manual) 0.3 L PT ABG pH POC ABG pCO2 POC ABG pO2 ABG pO2 ABG O2 Saturation ABG Base Excess ABG Hemoglobin ABG Oxyhemoglobin ABG Potassium ABG Chloride ABG Glucose Oxyhemoglobin Carboxyhemoglobin Sodium 173 H* Potassium Chloride 132.9 H Carbon Dioxide 17 L BUN 120 H Creatinine 4.2 H Glucose 762 H* POC Glucose Hemoglobin A1c Lactic Acid Calcium Phosphorus Magnesium 3.80 H Transferrin AST 72 H ALT 63 H Alkaline Phosphatase 148 H Total Creatine Kinase 3697 H CK-MB (CK-2) 36.0 H Serum Total Protein Total Protein Albumin 2.2 L Gwtzl-9-Abrgylttm Yrqkv-1-Okzrigads Gamma Globulins PEP Interpretation HDL Cholesterol TSH Arterial Blood Glucose Arterial Blood Ionized Calcium Urine WBC (Auto) Urine Creatinine Urine Total Protein Crossmatch 04/20/21 04/20/21 04/20/21 17:10 17:10 18:55 WBC RBC Hgb Hct MCH RDW Plt Count Seg Neuts % (Manual) Lymphocytes % (Manual) Nucleated RBC % Seg Neutrophils # Man Lymphocytes # (Manual) PT ABG pH POC ABG pCO2 POC ABG pO2 ABG pO2 ABG O2 Saturation ABG Base Excess ABG Hemoglobin ABG Oxyhemoglobin ABG Potassium ABG Chloride ABG Glucose Oxyhemoglobin Carboxyhemoglobin Sodium Potassium Chloride Carbon Dioxide BUN Creatinine Glucose POC Glucose 574 H Hemoglobin A1c Lactic Acid 2.60 H* Calcium Phosphorus Magnesium Transferrin AST ALT Alkaline Phosphatase Total Creatine Kinase CK-MB (CK-2) Serum Total Protein Total Protein Albumin Iyzco-3-Isptyecww Ktzfk-9-Xsgwyytxz Gamma Globulins PEP Interpretation HDL Cholesterol TSH 6.040 H Arterial Blood Glucose Arterial Blood Ionized Calcium Urine WBC (Auto) Urine Creatinine Urine Total Protein Crossmatch 04/20/21 04/20/21 04/20/21 22:12 22:58 22:58 WBC RBC Hgb Hct MCH RDW Plt Count Seg Neuts % (Manual) Lymphocytes % (Manual) Nucleated RBC % Seg Neutrophils # Man Lymphocytes # (Manual) PT ABG pH POC ABG pCO2 POC ABG pO2 ABG pO2 ABG O2 Saturation ABG Base Excess ABG Hemoglobin ABG Oxyhemoglobin ABG Potassium ABG Chloride ABG Glucose Oxyhemoglobin Carboxyhemoglobin Sodium 172 H* Potassium 3.2 L Chloride 134.2 H Carbon Dioxide 17 L BUN 112 H Creatinine 3.8 H Glucose 803 H* POC Glucose 554 H Hemoglobin A1c Lactic Acid Calcium 8.3 L Phosphorus Magnesium 3.50 H Transferrin AST ALT Alkaline Phosphatase Total Creatine Kinase CK-MB (CK-2) Serum Total Protein Total Protein Albumin Oxwmh-6-Atpsvuvdl Lixfv-4-Wdllpbrhb Gamma Globulins PEP Interpretation HDL Cholesterol TSH Arterial Blood Glucose Arterial Blood Ionized Calcium Urine WBC (Auto) Urine Creatinine Urine Total Protein Crossmatch 04/21/21 04/21/21 04/21/21 00:14 00:22 02:01 WBC RBC Hgb Hct MCH RDW Plt Count Seg Neuts % (Manual) Lymphocytes % (Manual) Nucleated RBC % Seg Neutrophils # Man Lymphocytes # (Manual) PT ABG pH POC ABG pCO2 POC ABG pO2 ABG pO2 ABG O2 Saturation ABG Base Excess ABG Hemoglobin ABG Oxyhemoglobin ABG Potassium ABG Chloride ABG Glucose Oxyhemoglobin Carboxyhemoglobin Sodium 176 H* 175 H* Potassium 2.9 L* 3.0 L Chloride 139.9 H 136.2 H Carbon Dioxide 17 L 19 L BUN 113 H 112 H Creatinine 3.9 H 3.6 H Glucose 729 H* 582 H* POC Glucose > 600 H Hemoglobin A1c Lactic Acid Calcium Phosphorus Magnesium Transferrin AST ALT Alkaline Phosphatase Total Creatine Kinase CK-MB (CK-2) Serum Total Protein Total Protein Albumin Zjnfd-2-Nlomdnrvy Cbbep-5-Lejunybbl Gamma Globulins PEP Interpretation HDL Cholesterol TSH Arterial Blood Glucose Arterial Blood Ionized Calcium Urine WBC (Auto) Urine Creatinine Urine Total Protein Crossmatch 04/21/21 04/21/21 04/21/21 03:11 03:20 03:41 WBC 14.1 H RBC Hgb Hct MCH 27 L RDW 16.8 H Plt Count 114 L Seg Neuts % (Manual) 97.0 H Lymphocytes % (Manual) 3.0 L Nucleated RBC % 1.0 H Seg Neutrophils # Man 13.7 H Lymphocytes # (Manual) 0.4 L PT ABG pH POC ABG pCO2 POC ABG pO2 ABG pO2 52.3 L ABG O2 Saturation 84.5 L ABG Base Excess -2.9 L ABG Hemoglobin ABG Oxyhemoglobin ABG Potassium ABG Chloride ABG Glucose Oxyhemoglobin 82.9 L Carboxyhemoglobin Sodium Potassium Chloride Carbon Dioxide BUN Creatinine Glucose POC Glucose 404 H Hemoglobin A1c Lactic Acid Calcium Phosphorus Magnesium Transferrin AST ALT Alkaline Phosphatase Total Creatine Kinase CK-MB (CK-2) Serum Total Protein Total Protein Albumin Gcduv-0-Dddpwtsqb Wvkmk-3-Mnkyfiueu Gamma Globulins PEP Interpretation HDL Cholesterol TSH Arterial Blood Glucose Arterial Blood Ionized Calcium Urine WBC (Auto) Urine Creatinine Urine Total Protein Crossmatch 04/21/21 04/21/21 04/21/21 03:41 04:24 05:45 WBC RBC Hgb Hct MCH RDW Plt Count Seg Neuts % (Manual) Lymphocytes % (Manual) Nucleated RBC % Seg Neutrophils # Man Lymphocytes # (Manual) PT ABG pH POC ABG pCO2 POC ABG pO2 ABG pO2 ABG O2 Saturation ABG Base Excess ABG Hemoglobin ABG Oxyhemoglobin ABG Potassium ABG Chloride ABG Glucose Oxyhemoglobin Carboxyhemoglobin Sodium 179 H* Potassium 2.9 L* Chloride 138.2 H Carbon Dioxide 20 L BUN 111 H Creatinine 3.7 H Glucose 465 H POC Glucose 353 H 280 H Hemoglobin A1c Lactic Acid Calcium Phosphorus Magnesium Transferrin AST 73 H ALT 61 H Alkaline Phosphatase 144 H Total Creatine Kinase CK-MB (CK-2) Serum Total Protein Total Protein Albumin 2.5 L Emoxz-5-Zfioijgln Oqtkt-8-Boejpkzda Gamma Globulins PEP Interpretation HDL Cholesterol TSH Arterial Blood Glucose Arterial Blood Ionized Calcium Urine WBC (Auto) Urine Creatinine Urine Total Protein Crossmatch 04/21/21 04/21/21 04/21/21 06:47 08:01 11:11 WBC RBC Hgb Hct MCH RDW Plt Count Seg Neuts % (Manual) Lymphocytes % (Manual) Nucleated RBC % Seg Neutrophils # Man Lymphocytes # (Manual) PT ABG pH POC ABG pCO2 POC ABG pO2 ABG pO2 ABG O2 Saturation ABG Base Excess ABG Hemoglobin ABG Oxyhemoglobin ABG Potassium ABG Chloride ABG Glucose Oxyhemoglobin Carboxyhemoglobin Sodium Potassium Chloride Carbon Dioxide BUN Creatinine Glucose POC Glucose 260 H 68 L Hemoglobin A1c Lactic Acid Calcium Phosphorus Magnesium Transferrin AST ALT Alkaline Phosphatase Total Creatine Kinase CK-MB (CK-2) Serum Total Protein Total Protein Albumin Qwadm-5-Rqzyyvcti Krlsr-6-Oqfpggahp Gamma Globulins PEP Interpretation HDL Cholesterol TSH Arterial Blood Glucose Arterial Blood Ionized Calcium Urine WBC (Auto) Urine Creatinine 44.3 H Urine Total Protein 12 H Crossmatch 04/21/21 04/21/21 04/21/21 12:51 13:41 14:40 WBC RBC Hgb Hct MCH RDW Plt Count Seg Neuts % (Manual) Lymphocytes % (Manual) Nucleated RBC % Seg Neutrophils # Man Lymphocytes # (Manual) PT ABG pH 7.275 L POC ABG pCO2 POC ABG pO2 63.4 L ABG pO2 ABG O2 Saturation ABG Base Excess ABG Hemoglobin 8.4 L ABG Oxyhemoglobin 89.5 L ABG Potassium ABG Chloride 108.0 H ABG Glucose 404 H Oxyhemoglobin Carboxyhemoglobin Sodium Potassium Chloride Carbon Dioxide BUN Creatinine Glucose POC Glucose 146 H 186 H Hemoglobin A1c Lactic Acid Calcium Phosphorus Magnesium Transferrin AST ALT Alkaline Phosphatase Total Creatine Kinase CK-MB (CK-2) Serum Total Protein Total Protein Albumin Aqglj-9-Sewhhxrbm Dciqf-9-Agqiurisy Gamma Globulins PEP Interpretation HDL Cholesterol TSH Arterial Blood Glucose 404 H Arterial Blood Ionized Calcium Urine WBC (Auto) Urine Creatinine Urine Total Protein Crossmatch 04/21/21 04/21/21 04/21/21 15:47 16:25 17:57 WBC RBC Hgb Hct MCH RDW Plt Count Seg Neuts % (Manual) Lymphocytes % (Manual) Nucleated RBC % Seg Neutrophils # Man Lymphocytes # (Manual) PT ABG pH 7.486 H POC ABG pCO2 POC ABG pO2 ABG pO2 168.1 H ABG O2 Saturation 99.1 H ABG Base Excess ABG Hemoglobin 8.9 L ABG Oxyhemoglobin ABG Potassium ABG Chloride ABG Glucose Oxyhemoglobin Carboxyhemoglobin Sodium Potassium Chloride Carbon Dioxide BUN Creatinine Glucose POC Glucose 172 H 143 H Hemoglobin A1c Lactic Acid Calcium Phosphorus Magnesium Transferrin AST ALT Alkaline Phosphatase Total Creatine Kinase CK-MB (CK-2) Serum Total Protein Total Protein Albumin Bvtfn-4-Uzigckpqy Ikfff-5-Ellkmbncm Gamma Globulins PEP Interpretation HDL Cholesterol TSH Arterial Blood Glucose Arterial Blood Ionized Calcium Urine WBC (Auto) Urine Creatinine Urine Total Protein Crossmatch 04/21/21 04/21/21 04/21/21 18:49 19:10 20:26 WBC RBC Hgb Hct MCH RDW Plt Count Seg Neuts % (Manual) Lymphocytes % (Manual) Nucleated RBC % Seg Neutrophils # Man Lymphocytes # (Manual) PT ABG pH POC ABG pCO2 POC ABG pO2 ABG pO2 ABG O2 Saturation ABG Base Excess ABG Hemoglobin ABG Oxyhemoglobin ABG Potassium ABG Chloride ABG Glucose Oxyhemoglobin Carboxyhemoglobin Sodium 174 H* Potassium 7.2 H* D Chloride 138.2 H Carbon Dioxide 21 L BUN 99 H Creatinine 4.0 H Glucose 157 H POC Glucose 126 H 190 H Hemoglobin A1c Lactic Acid Calcium Phosphorus Magnesium Transferrin AST 134 H ALT 71 H Alkaline Phosphatase 135 H Total Creatine Kinase 3504 H CK-MB (CK-2) Serum Total Protein Total Protein Albumin 2.2 L Lusyd-0-Rwheowmzf Ajsvz-1-Qiuhnhgka Gamma Globulins PEP Interpretation HDL Cholesterol TSH Arterial Blood Glucose Arterial Blood Ionized Calcium Urine WBC (Auto) Urine Creatinine Urine Total Protein Crossmatch 04/21/21 04/21/21 04/21/21 20:53 21:52 22:55 WBC RBC Hgb Hct MCH RDW Plt Count Seg Neuts % (Manual) Lymphocytes % (Manual) Nucleated RBC % Seg Neutrophils # Man Lymphocytes # (Manual) PT ABG pH POC ABG pCO2 POC ABG pO2 ABG pO2 ABG O2 Saturation ABG Base Excess ABG Hemoglobin ABG Oxyhemoglobin ABG Potassium ABG Chloride ABG Glucose Oxyhemoglobin Carboxyhemoglobin Sodium Potassium Chloride Carbon Dioxide BUN Creatinine Glucose POC Glucose 116 H 135 H 158 H Hemoglobin A1c Lactic Acid Calcium Phosphorus Magnesium Transferrin AST ALT Alkaline Phosphatase Total Creatine Kinase CK-MB (CK-2) Serum Total Protein Total Protein Albumin Jlisd-4-Vgmumbwhk Yeahl-9-Xmzdwrmbt Gamma Globulins PEP Interpretation HDL Cholesterol TSH Arterial Blood Glucose Arterial Blood Ionized Calcium Urine WBC (Auto) Urine Creatinine Urine Total Protein Crossmatch 04/21/21 04/22/21 04/22/21 23:00 00:01 00:39 WBC RBC Hgb Hct MCH RDW Plt Count Seg Neuts % (Manual) Lymphocytes % (Manual) Nucleated RBC % Seg Neutrophils # Man Lymphocytes # (Manual) PT ABG pH POC ABG pCO2 POC ABG pO2 ABG pO2 ABG O2 Saturation ABG Base Excess ABG Hemoglobin ABG Oxyhemoglobin ABG Potassium ABG Chloride ABG Glucose Oxyhemoglobin Carboxyhemoglobin Sodium 176 H* 171 H* Potassium Chloride 140.0 H Carbon Dioxide 20 L BUN 98 H Creatinine 3.9 H Glucose 206 H POC Glucose 182 H Hemoglobin A1c Lactic Acid Calcium Phosphorus Magnesium Transferrin AST ALT Alkaline Phosphatase Total Creatine Kinase 3240 H CK-MB (CK-2) Serum Total Protein Total Protein Albumin Ycpvy-6-Toollwzse Mzqrr-4-Zvykxzoey Gamma Globulins PEP Interpretation HDL Cholesterol TSH Arterial Blood Glucose Arterial Blood Ionized Calcium Urine WBC (Auto) Urine Creatinine Urine Total Protein Crossmatch 04/22/21 04/22/21 04/22/21 00:58 01:04 04:52 WBC 11.2 H RBC Hgb Hct 44.3 H MCH 27 L RDW 17.1 H Plt Count 86 L Seg Neuts % (Manual) 86.0 H Lymphocytes % (Manual) 13.0 L Nucleated RBC % Seg Neutrophils # Man 9.6 H Lymphocytes # (Manual) PT ABG pH POC ABG pCO2 POC ABG pO2 ABG pO2 ABG O2 Saturation ABG Base Excess ABG Hemoglobin ABG Oxyhemoglobin ABG Potassium ABG Chloride ABG Glucose Oxyhemoglobin Carboxyhemoglobin Sodium Potassium Chloride Carbon Dioxide BUN Creatinine Glucose POC Glucose 176 H 143 H Hemoglobin A1c Lactic Acid Calcium Phosphorus Magnesium Transferrin AST ALT Alkaline Phosphatase Total Creatine Kinase CK-MB (CK-2) Serum Total Protein Total Protein Albumin Hteha-3-Nbvxrqeev Cshvm-0-Fphwogbmf Gamma Globulins PEP Interpretation HDL Cholesterol TSH Arterial Blood Glucose Arterial Blood Ionized Calcium Urine WBC (Auto) Urine Creatinine Urine Total Protein Crossmatch 04/22/21 04/22/21 04/22/21 06:07 06:09 07:18 WBC RBC Hgb Hct MCH RDW Plt Count Seg Neuts % (Manual) Lymphocytes % (Manual) Nucleated RBC % Seg Neutrophils # Man Lymphocytes # (Manual) PT ABG pH POC ABG pCO2 POC ABG pO2 ABG pO2 ABG O2 Saturation ABG Base Excess ABG Hemoglobin ABG Oxyhemoglobin ABG Potassium ABG Chloride ABG Glucose Oxyhemoglobin Carboxyhemoglobin Sodium Potassium Chloride Carbon Dioxide BUN Creatinine Glucose POC Glucose 206 H 163 H 158 H Hemoglobin A1c Lactic Acid Calcium Phosphorus Magnesium Transferrin AST ALT Alkaline Phosphatase Total Creatine Kinase CK-MB (CK-2) Serum Total Protein Total Protein Albumin Jtbhl-3-Bajkxxkxf Hnzfr-2-Mblvhcyvq Gamma Globulins PEP Interpretation HDL Cholesterol TSH Arterial Blood Glucose Arterial Blood Ionized Calcium Urine WBC (Auto) Urine Creatinine Urine Total Protein Crossmatch 04/22/21 04/22/21 04/22/21 08:59 08:59 08:59 WBC RBC Hgb Hct MCH RDW Plt Count Seg Neuts % (Manual) Lymphocytes % (Manual) Nucleated RBC % Seg Neutrophils # Man Lymphocytes # (Manual) PT ABG pH POC ABG pCO2 POC ABG pO2 ABG pO2 ABG O2 Saturation ABG Base Excess ABG Hemoglobin ABG Oxyhemoglobin ABG Potassium ABG Chloride ABG Glucose Oxyhemoglobin Carboxyhemoglobin Sodium 169 H* Potassium 3.5 L Chloride 134.5 H Carbon Dioxide 20 L BUN 95 H Creatinine 3.6 H Glucose 151 H POC Glucose Hemoglobin A1c Lactic Acid Calcium Phosphorus Magnesium Transferrin AST 121 H ALT 75 H Alkaline Phosphatase 137 H Total Creatine Kinase 3105 H CK-MB (CK-2) Serum Total Protein 5.5 L Total Protein 6.0 L Albumin 2.8 L 2.1 L Uoatu-3-Gdqgblclu 0.6 H Uhfrk-4-Wyiayksya 1.0 H Gamma Globulins 0.6 L PEP Interpretation see below H HDL Cholesterol TSH Arterial Blood Glucose Arterial Blood Ionized Calcium Urine WBC (Auto) Urine Creatinine Urine Total Protein Crossmatch 04/22/21 04/22/21 04/22/21 09:44 10:24 12:20 WBC RBC Hgb Hct MCH RDW Plt Count Seg Neuts % (Manual) Lymphocytes % (Manual) Nucleated RBC % Seg Neutrophils # Man Lymphocytes # (Manual) PT ABG pH POC ABG pCO2 POC ABG pO2 ABG pO2 ABG O2 Saturation ABG Base Excess ABG Hemoglobin ABG Oxyhemoglobin ABG Potassium ABG Chloride ABG Glucose Oxyhemoglobin Carboxyhemoglobin Sodium Potassium Chloride Carbon Dioxide BUN Creatinine Glucose POC Glucose 107 H 131 H Hemoglobin A1c Lactic Acid Calcium Phosphorus Magnesium 2.80 H Transferrin AST ALT Alkaline Phosphatase Total Creatine Kinase CK-MB (CK-2) Serum Total Protein Total Protein Albumin Eanbw-6-Fgzfphcuz Vglkq-0-Mvxgypcpa Gamma Globulins PEP Interpretation HDL Cholesterol TSH Arterial Blood Glucose Arterial Blood Ionized Calcium Urine WBC (Auto) Urine Creatinine Urine Total Protein Crossmatch 04/22/21 04/22/21 04/22/21 13:19 14:16 15:22 WBC RBC Hgb Hct MCH RDW Plt Count Seg Neuts % (Manual) Lymphocytes % (Manual) Nucleated RBC % Seg Neutrophils # Man Lymphocytes # (Manual) PT ABG pH POC ABG pCO2 POC ABG pO2 ABG pO2 ABG O2 Saturation ABG Base Excess ABG Hemoglobin ABG Oxyhemoglobin ABG Potassium ABG Chloride ABG Glucose Oxyhemoglobin Carboxyhemoglobin Sodium Potassium Chloride Carbon Dioxide BUN Creatinine Glucose POC Glucose 147 H 154 H 136 H Hemoglobin A1c Lactic Acid Calcium Phosphorus Magnesium Transferrin AST ALT Alkaline Phosphatase Total Creatine Kinase CK-MB (CK-2) Serum Total Protein Total Protein Albumin Vfdne-5-Qtvrxykhk Gqhop-2-Gcgcsfrmg Gamma Globulins PEP Interpretation HDL Cholesterol TSH Arterial Blood Glucose Arterial Blood Ionized Calcium Urine WBC (Auto) Urine Creatinine Urine Total Protein Crossmatch 04/22/21 04/22/21 04/22/21 15:55 15:55 16:22 WBC RBC Hgb Hct MCH RDW Plt Count Seg Neuts % (Manual) Lymphocytes % (Manual) Nucleated RBC % Seg Neutrophils # Man Lymphocytes # (Manual) PT ABG pH POC ABG pCO2 POC ABG pO2 ABG pO2 ABG O2 Saturation ABG Base Excess ABG Hemoglobin ABG Oxyhemoglobin ABG Potassium ABG Chloride ABG Glucose Oxyhemoglobin Carboxyhemoglobin Sodium 169 H* Potassium Chloride 133.5 H Carbon Dioxide 19 L BUN 94 H Creatinine 3.8 H Glucose 150 H POC Glucose 140 H Hemoglobin A1c 17.1 H Lactic Acid Calcium Phosphorus Magnesium Transferrin AST ALT Alkaline Phosphatase Total Creatine Kinase CK-MB (CK-2) Serum Total Protein Total Protein Albumin Gatzk-5-Dbcqeqlfn Vsyeu-0-Riwopezed Gamma Globulins PEP Interpretation HDL Cholesterol TSH Arterial Blood Glucose Arterial Blood Ionized Calcium Urine WBC (Auto) Urine Creatinine Urine Total Protein Crossmatch 04/22/21 04/22/21 04/22/21 18:11 18:26 23:19 WBC RBC Hgb Hct MCH RDW Plt Count Seg Neuts % (Manual) Lymphocytes % (Manual) Nucleated RBC % Seg Neutrophils # Man Lymphocytes # (Manual) PT ABG pH POC ABG pCO2 POC ABG pO2 ABG pO2 ABG O2 Saturation ABG Base Excess ABG Hemoglobin ABG Oxyhemoglobin ABG Potassium ABG Chloride ABG Glucose Oxyhemoglobin Carboxyhemoglobin Sodium Potassium Chloride Carbon Dioxide BUN Creatinine Glucose POC Glucose 146 H 188 H Hemoglobin A1c Lactic Acid Calcium Phosphorus Magnesium Transferrin AST ALT Alkaline Phosphatase Total Creatine Kinase 2497 H CK-MB (CK-2) Serum Total Protein Total Protein Albumin Thzzx-8-Quazqfltn Nqgtk-5-Ywmzrvwmq Gamma Globulins PEP Interpretation HDL Cholesterol TSH Arterial Blood Glucose Arterial Blood Ionized Calcium Urine WBC (Auto) Urine Creatinine Urine Total Protein Crossmatch 04/23/21 04/23/21 04/23/21 00:27 05:23 07:50 WBC RBC Hgb Hct MCH RDW Plt Count Seg Neuts % (Manual) Lymphocytes % (Manual) Nucleated RBC % Seg Neutrophils # Man Lymphocytes # (Manual) PT ABG pH POC ABG pCO2 POC ABG pO2 ABG pO2 ABG O2 Saturation ABG Base Excess ABG Hemoglobin ABG Oxyhemoglobin ABG Potassium ABG Chloride ABG Glucose Oxyhemoglobin Carboxyhemoglobin Sodium 162 H* Potassium Chloride Carbon Dioxide BUN Creatinine Glucose POC Glucose 212 H 239 H Hemoglobin A1c Lactic Acid Calcium Phosphorus Magnesium Transferrin AST ALT Alkaline Phosphatase Total Creatine Kinase CK-MB (CK-2) Serum Total Protein Total Protein Albumin Pcimb-7-Dovsoctrq Yavuz-8-Frvapbgzp Gamma Globulins PEP Interpretation HDL Cholesterol TSH Arterial Blood Glucose Arterial Blood Ionized Calcium Urine WBC (Auto) Urine Creatinine Urine Total Protein Crossmatch 04/23/21 04/23/21 04/23/21 08:13 08:13 08:13 WBC 11.9 H RBC Hgb Hct MCH 26 L RDW 16.5 H Plt Count 72 L Seg Neuts % (Manual) 80.0 H Lymphocytes % (Manual) 5.0 L Nucleated RBC % Seg Neutrophils # Man 9.5 H Lymphocytes # (Manual) 0.6 L PT ABG pH POC ABG pCO2 POC ABG pO2 ABG pO2 ABG O2 Saturation ABG Base Excess ABG Hemoglobin ABG Oxyhemoglobin ABG Potassium ABG Chloride ABG Glucose Oxyhemoglobin Carboxyhemoglobin Sodium 164 H* Potassium Chloride 128.0 H Carbon Dioxide 21 L BUN 93 H Creatinine 3.8 H Glucose 293 H POC Glucose Hemoglobin A1c Lactic Acid Calcium Phosphorus Magnesium Transferrin AST 99 H ALT 70 H Alkaline Phosphatase 147 H Total Creatine Kinase 1803 H CK-MB (CK-2) Serum Total Protein Total Protein 6.1 L Albumin 2.0 L Uwnnf-2-Ixjffugkd Jvian-1-Ehflmwgip Gamma Globulins PEP Interpretation HDL Cholesterol TSH Arterial Blood Glucose Arterial Blood Ionized Calcium Urine WBC (Auto) Urine Creatinine Urine Total Protein Crossmatch 04/23/21 04/23/21 04/23/21 12:06 17:35 18:17 WBC RBC Hgb Hct MCH RDW Plt Count Seg Neuts % (Manual) Lymphocytes % (Manual) Nucleated RBC % Seg Neutrophils # Man Lymphocytes # (Manual) PT ABG pH POC ABG pCO2 POC ABG pO2 ABG pO2 ABG O2 Saturation ABG Base Excess ABG Hemoglobin ABG Oxyhemoglobin ABG Potassium ABG Chloride ABG Glucose Oxyhemoglobin Carboxyhemoglobin Sodium 160 H Potassium Chloride Carbon Dioxide BUN Creatinine Glucose POC Glucose 311 H 370 H Hemoglobin A1c Lactic Acid Calcium Phosphorus Magnesium Transferrin AST ALT Alkaline Phosphatase Total Creatine Kinase CK-MB (CK-2) Serum Total Protein Total Protein Albumin Qlepi-5-Akcztdvps Ixidt-9-Uwrnrdwag Gamma Globulins PEP Interpretation HDL Cholesterol TSH Arterial Blood Glucose Arterial Blood Ionized Calcium Urine WBC (Auto) Urine Creatinine Urine Total Protein Crossmatch 04/24/21 04/24/21 04/24/21 02:13 06:00 06:00 WBC RBC Hgb Hct MCH 27 L RDW 17.0 H Plt Count 58 L Seg Neuts % (Manual) Lymphocytes % (Manual) 2.0 L Nucleated RBC % Seg Neutrophils # Man 8.9 H Lymphocytes # (Manual) 0.2 L PT ABG pH POC ABG pCO2 POC ABG pO2 ABG pO2 ABG O2 Saturation ABG Base Excess ABG Hemoglobin ABG Oxyhemoglobin ABG Potassium ABG Chloride ABG Glucose Oxyhemoglobin Carboxyhemoglobin Sodium 160 H Potassium Chloride Carbon Dioxide BUN Creatinine Glucose POC Glucose Hemoglobin A1c Lactic Acid Calcium Phosphorus Magnesium 2.90 H Transferrin AST ALT Alkaline Phosphatase Total Creatine Kinase CK-MB (CK-2) Serum Total Protein Total Protein Albumin Krjns-3-Xscrqirxv Jkdle-2-Usukimosm Gamma Globulins PEP Interpretation HDL Cholesterol TSH Arterial Blood Glucose Arterial Blood Ionized Calcium Urine WBC (Auto) Urine Creatinine Urine Total Protein Crossmatch 04/24/21 04/24/21 04/24/21 07:46 08:15 11:34 WBC RBC Hgb Hct MCH RDW Plt Count Seg Neuts % (Manual) Lymphocytes % (Manual) Nucleated RBC % Seg Neutrophils # Man Lymphocytes # (Manual) PT ABG pH POC ABG pCO2 POC ABG pO2 ABG pO2 ABG O2 Saturation ABG Base Excess ABG Hemoglobin ABG Oxyhemoglobin ABG Potassium ABG Chloride ABG Glucose Oxyhemoglobin Carboxyhemoglobin Sodium 159 H Potassium Chloride 125.6 H Carbon Dioxide 19 L BUN 94 H Creatinine 3.7 H Glucose 514 H* POC Glucose 395 H 422 H Hemoglobin A1c Lactic Acid Calcium Phosphorus Magnesium Transferrin AST ALT 61 H Alkaline Phosphatase 155 H Total Creatine Kinase CK-MB (CK-2) Serum Total Protein Total Protein 6.1 L Albumin 1.5 L Kgpuz-3-Gsqanjxtb Xacbs-8-Thpwlxckr Gamma Globulins PEP Interpretation HDL Cholesterol TSH Arterial Blood Glucose Arterial Blood Ionized Calcium Urine WBC (Auto) Urine Creatinine Urine Total Protein Crossmatch 04/24/21 04/24/21 04/24/21 13:11 14:01 15:03 WBC RBC Hgb Hct MCH RDW Plt Count Seg Neuts % (Manual) Lymphocytes % (Manual) Nucleated RBC % Seg Neutrophils # Man Lymphocytes # (Manual) PT ABG pH POC ABG pCO2 POC ABG pO2 ABG pO2 ABG O2 Saturation ABG Base Excess ABG Hemoglobin ABG Oxyhemoglobin ABG Potassium ABG Chloride ABG Glucose Oxyhemoglobin Carboxyhemoglobin Sodium Potassium Chloride Carbon Dioxide BUN Creatinine Glucose POC Glucose 384 H 423 H 418 H Hemoglobin A1c Lactic Acid Calcium Phosphorus Magnesium Transferrin AST ALT Alkaline Phosphatase Total Creatine Kinase CK-MB (CK-2) Serum Total Protein Total Protein Albumin Bjkga-8-Bkmquilxq Wemtj-1-Rberkmubo Gamma Globulins PEP Interpretation HDL Cholesterol TSH Arterial Blood Glucose Arterial Blood Ionized Calcium Urine WBC (Auto) Urine Creatinine Urine Total Protein Crossmatch 04/24/21 04/24/21 04/24/21 17:29 18:28 19:41 WBC RBC Hgb Hct MCH RDW Plt Count Seg Neuts % (Manual) Lymphocytes % (Manual) Nucleated RBC % Seg Neutrophils # Man Lymphocytes # (Manual) PT ABG pH POC ABG pCO2 POC ABG pO2 ABG pO2 ABG O2 Saturation ABG Base Excess ABG Hemoglobin ABG Oxyhemoglobin ABG Potassium ABG Chloride ABG Glucose Oxyhemoglobin Carboxyhemoglobin Sodium Potassium Chloride Carbon Dioxide BUN Creatinine Glucose POC Glucose 335 H 321 H Hemoglobin A1c Lactic Acid Calcium Phosphorus Magnesium Transferrin 112 L AST ALT Alkaline Phosphatase Total Creatine Kinase CK-MB (CK-2) Serum Total Protein Total Protein Albumin Kjsdf-3-Timgzpkmu Lrhnu-7-Yskomfbwq Gamma Globulins PEP Interpretation HDL Cholesterol TSH Arterial Blood Glucose Arterial Blood Ionized Calcium Urine WBC (Auto) Urine Creatinine Urine Total Protein Crossmatch 04/24/21 04/25/21 04/25/21 22:33 01:28 02:28 WBC RBC Hgb Hct MCH RDW Plt Count Seg Neuts % (Manual) Lymphocytes % (Manual) Nucleated RBC % Seg Neutrophils # Man Lymphocytes # (Manual) PT ABG pH POC ABG pCO2 POC ABG pO2 ABG pO2 ABG O2 Saturation ABG Base Excess ABG Hemoglobin ABG Oxyhemoglobin ABG Potassium ABG Chloride ABG Glucose Oxyhemoglobin Carboxyhemoglobin Sodium Potassium Chloride Carbon Dioxide BUN Creatinine Glucose POC Glucose 349 H 283 H 247 H Hemoglobin A1c Lactic Acid Calcium Phosphorus Magnesium Transferrin AST ALT Alkaline Phosphatase Total Creatine Kinase CK-MB (CK-2) Serum Total Protein Total Protein Albumin Dsamd-3-Ocwzibqqa Yllun-9-Ahqkbuugw Gamma Globulins PEP Interpretation HDL Cholesterol TSH Arterial Blood Glucose Arterial Blood Ionized Calcium Urine WBC (Auto) Urine Creatinine Urine Total Protein Crossmatch 04/25/21 04/25/21 04/25/21 03:25 04:22 05:40 WBC RBC Hgb Hct MCH RDW Plt Count Seg Neuts % (Manual) Lymphocytes % (Manual) Nucleated RBC % Seg Neutrophils # Man Lymphocytes # (Manual) PT ABG pH POC ABG pCO2 POC ABG pO2 ABG pO2 ABG O2 Saturation ABG Base Excess ABG Hemoglobin ABG Oxyhemoglobin ABG Potassium ABG Chloride ABG Glucose Oxyhemoglobin Carboxyhemoglobin Sodium Potassium Chloride Carbon Dioxide BUN Creatinine Glucose POC Glucose 196 H 207 H 204 H Hemoglobin A1c Lactic Acid Calcium Phosphorus Magnesium Transferrin AST ALT Alkaline Phosphatase Total Creatine Kinase CK-MB (CK-2) Serum Total Protein Total Protein Albumin Sfnei-6-Tolisepwn Ybbhv-2-Plmuttplt Gamma Globulins PEP Interpretation HDL Cholesterol TSH Arterial Blood Glucose Arterial Blood Ionized Calcium Urine WBC (Auto) Urine Creatinine Urine Total Protein Crossmatch 04/25/21 04/25/21 04/25/21 05:45 06:43 07:37 WBC RBC Hgb Hct MCH 27 L RDW 17.0 H Plt Count 64 L Seg Neuts % (Manual) 84.0 H Lymphocytes % (Manual) 6.0 L Nucleated RBC % 1.0 H Seg Neutrophils # Man Lymphocytes # (Manual) 0.4 L PT ABG pH POC ABG pCO2 POC ABG pO2 ABG pO2 ABG O2 Saturation ABG Base Excess ABG Hemoglobin ABG Oxyhemoglobin ABG Potassium ABG Chloride ABG Glucose Oxyhemoglobin Carboxyhemoglobin Sodium Potassium Chloride Carbon Dioxide BUN Creatinine Glucose POC Glucose 238 H 201 H Hemoglobin A1c Lactic Acid Calcium Phosphorus Magnesium Transferrin AST ALT Alkaline Phosphatase Total Creatine Kinase CK-MB (CK-2) Serum Total Protein Total Protein Albumin Fyqxu-5-Sfjikfzlg Mksud-3-Znlodgojw Gamma Globulins PEP Interpretation HDL Cholesterol TSH Arterial Blood Glucose Arterial Blood Ionized Calcium Urine WBC (Auto) Urine Creatinine Urine Total Protein Crossmatch 04/25/21 04/25/21 04/25/21 08:11 08:11 08:41 WBC RBC Hgb Hct MCH RDW Plt Count Seg Neuts % (Manual) Lymphocytes % (Manual) Nucleated RBC % Seg Neutrophils # Man Lymphocytes # (Manual) PT ABG pH POC ABG pCO2 POC ABG pO2 ABG pO2 ABG O2 Saturation ABG Base Excess ABG Hemoglobin ABG Oxyhemoglobin ABG Potassium ABG Chloride ABG Glucose Oxyhemoglobin Carboxyhemoglobin Sodium 148 H D Potassium Chloride 115.7 H Carbon Dioxide 21 L BUN 83 H Creatinine 3.6 H Glucose 247 H POC Glucose 220 H Hemoglobin A1c Lactic Acid Calcium Phosphorus Magnesium 2.50 H Transferrin AST 63 H ALT 62 H Alkaline Phosphatase 143 H Total Creatine Kinase CK-MB (CK-2) Serum Total Protein Total Protein 5.4 L Albumin 1.4 L Gvjql-7-Xragvqzlm Gpmdh-3-Usfaimbph Gamma Globulins PEP Interpretation HDL Cholesterol TSH Arterial Blood Glucose Arterial Blood Ionized Calcium Urine WBC (Auto) Urine Creatinine Urine Total Protein Crossmatch 04/25/21 04/25/21 04/25/21 09:22 10:31 11:44 WBC RBC Hgb Hct MCH RDW Plt Count Seg Neuts % (Manual) Lymphocytes % (Manual) Nucleated RBC % Seg Neutrophils # Man Lymphocytes # (Manual) PT ABG pH POC ABG pCO2 POC ABG pO2 ABG pO2 ABG O2 Saturation ABG Base Excess ABG Hemoglobin ABG Oxyhemoglobin ABG Potassium ABG Chloride ABG Glucose Oxyhemoglobin Carboxyhemoglobin Sodium Potassium Chloride Carbon Dioxide BUN Creatinine Glucose POC Glucose 228 H 215 H 191 H Hemoglobin A1c Lactic Acid Calcium Phosphorus Magnesium Transferrin AST ALT Alkaline Phosphatase Total Creatine Kinase CK-MB (CK-2) Serum Total Protein Total Protein Albumin Ltljf-6-Bdbxffqws Jvdyx-5-Iczmpuwhi Gamma Globulins PEP Interpretation HDL Cholesterol TSH Arterial Blood Glucose Arterial Blood Ionized Calcium Urine WBC (Auto) Urine Creatinine Urine Total Protein Crossmatch 04/25/21 04/25/21 04/25/21 12:23 13:48 14:11 WBC RBC Hgb Hct MCH RDW Plt Count Seg Neuts % (Manual) Lymphocytes % (Manual) Nucleated RBC % Seg Neutrophils # Man Lymphocytes # (Manual) PT ABG pH POC ABG pCO2 POC ABG pO2 ABG pO2 ABG O2 Saturation ABG Base Excess ABG Hemoglobin ABG Oxyhemoglobin ABG Potassium ABG Chloride ABG Glucose Oxyhemoglobin Carboxyhemoglobin Sodium Potassium Chloride Carbon Dioxide BUN Creatinine Glucose POC Glucose 229 H 177 H 161 H Hemoglobin A1c Lactic Acid Calcium Phosphorus Magnesium Transferrin AST ALT Alkaline Phosphatase Total Creatine Kinase CK-MB (CK-2) Serum Total Protein Total Protein Albumin Phoim-4-Dvgvfibfd Eetbh-0-Jrbzqbnjh Gamma Globulins PEP Interpretation HDL Cholesterol TSH Arterial Blood Glucose Arterial Blood Ionized Calcium Urine WBC (Auto) Urine Creatinine Urine Total Protein Crossmatch 04/25/21 04/25/21 04/26/21 18:01 21:31 01:19 WBC RBC Hgb Hct MCH RDW Plt Count Seg Neuts % (Manual) Lymphocytes % (Manual) Nucleated RBC % Seg Neutrophils # Man Lymphocytes # (Manual) PT ABG pH POC ABG pCO2 POC ABG pO2 ABG pO2 ABG O2 Saturation ABG Base Excess ABG Hemoglobin ABG Oxyhemoglobin ABG Potassium ABG Chloride ABG Glucose Oxyhemoglobin Carboxyhemoglobin Sodium Potassium Chloride Carbon Dioxide BUN Creatinine Glucose POC Glucose 264 H 371 H 356 H Hemoglobin A1c Lactic Acid Calcium Phosphorus Magnesium Transferrin AST ALT Alkaline Phosphatase Total Creatine Kinase CK-MB (CK-2) Serum Total Protein Total Protein Albumin Mdify-5-Knalwvsut Gvgrg-3-Rqeohsdtz Gamma Globulins PEP Interpretation HDL Cholesterol TSH Arterial Blood Glucose Arterial Blood Ionized Calcium Urine WBC (Auto) Urine Creatinine Urine Total Protein Crossmatch 04/26/21 04/26/21 04/26/21 06:31 09:13 09:33 WBC RBC Hgb Hct MCH 27 L RDW 16.9 H Plt Count 58 L Seg Neuts % (Manual) 77.0 H Lymphocytes % (Manual) 4.0 L Nucleated RBC % 2.0 H Seg Neutrophils # Man Lymphocytes # (Manual) 0.3 L PT ABG pH POC ABG pCO2 POC ABG pO2 ABG pO2 ABG O2 Saturation ABG Base Excess ABG Hemoglobin ABG Oxyhemoglobin ABG Potassium ABG Chloride ABG Glucose Oxyhemoglobin Carboxyhemoglobin Sodium Potassium Chloride Carbon Dioxide BUN Creatinine Glucose POC Glucose 428 H 454 H Hemoglobin A1c Lactic Acid Calcium Phosphorus Magnesium Transferrin AST ALT Alkaline Phosphatase Total Creatine Kinase CK-MB (CK-2) Serum Total Protein Total Protein Albumin Bkyjp-7-Vqcmvlthi Ahtmk-8-Rvvvybwgw Gamma Globulins PEP Interpretation HDL Cholesterol TSH Arterial Blood Glucose Arterial Blood Ionized Calcium Urine WBC (Auto) Urine Creatinine Urine Total Protein Crossmatch 04/26/21 04/26/21 04/26/21 09:33 09:33 11:00 WBC RBC Hgb Hct MCH RDW Plt Count Seg Neuts % (Manual) Lymphocytes % (Manual) Nucleated RBC % Seg Neutrophils # Man Lymphocytes # (Manual) PT ABG pH 7.281 L POC ABG pCO2 POC ABG pO2 66.4 L ABG pO2 ABG O2 Saturation ABG Base Excess ABG Hemoglobin 10.9 L ABG Oxyhemoglobin 91 L ABG Potassium ABG Chloride ABG Glucose 521 H Oxyhemoglobin Carboxyhemoglobin Sodium Potassium Chloride Carbon Dioxide 19 L BUN 98 H Creatinine 3.8 H Glucose 530 H* POC Glucose Hemoglobin A1c Lactic Acid Calcium 8.1 L Phosphorus 5.60 H D Magnesium Transferrin AST 60 H ALT 72 H Alkaline Phosphatase 168 H Total Creatine Kinase CK-MB (CK-2) Serum Total Protein Total Protein 4.6 L Albumin 1.7 L Nnqqf-0-Uzggedooa Fodvc-3-Ifsimowxk Gamma Globulins PEP Interpretation HDL Cholesterol TSH Arterial Blood Glucose 521 H Arterial Blood Ionized Calcium Urine WBC (Auto) Urine Creatinine Urine Total Protein Crossmatch 04/26/21 04/26/21 04/26/21 12:36 15:39 16:18 WBC RBC Hgb Hct MCH RDW Plt Count Seg Neuts % (Manual) Lymphocytes % (Manual) Nucleated RBC % Seg Neutrophils # Man Lymphocytes # (Manual) PT ABG pH 7.275 L POC ABG pCO2 POC ABG pO2 63.4 L ABG pO2 ABG O2 Saturation ABG Base Excess ABG Hemoglobin 8.4 L ABG Oxyhemoglobin 89.5 L ABG Potassium ABG Chloride 108.0 H ABG Glucose 404 H Oxyhemoglobin Carboxyhemoglobin Sodium Potassium Chloride Carbon Dioxide BUN Creatinine Glucose POC Glucose 414 H 324 H Hemoglobin A1c Lactic Acid Calcium Phosphorus Magnesium Transferrin AST ALT Alkaline Phosphatase Total Creatine Kinase CK-MB (CK-2) Serum Total Protein Total Protein Albumin Nbrmr-8-Tbzcvomju Qimtx-9-Kdzuswyid Gamma Globulins PEP Interpretation HDL Cholesterol TSH Arterial Blood Glucose 404 H Arterial Blood Ionized Calcium Urine WBC (Auto) Urine Creatinine Urine Total Protein Crossmatch 04/26/21 04/27/21 04/27/21 21:14 00:07 05:47 WBC RBC Hgb Hct MCH RDW Plt Count Seg Neuts % (Manual) Lymphocytes % (Manual) Nucleated RBC % Seg Neutrophils # Man Lymphocytes # (Manual) PT ABG pH POC ABG pCO2 POC ABG pO2 ABG pO2 ABG O2 Saturation ABG Base Excess ABG Hemoglobin ABG Oxyhemoglobin ABG Potassium ABG Chloride ABG Glucose Oxyhemoglobin Carboxyhemoglobin Sodium Potassium Chloride Carbon Dioxide BUN Creatinine Glucose POC Glucose 242 H 282 H 214 H Hemoglobin A1c Lactic Acid Calcium Phosphorus Magnesium Transferrin AST ALT Alkaline Phosphatase Total Creatine Kinase CK-MB (CK-2) Serum Total Protein Total Protein Albumin Ngfrb-2-Lgnbyiclg Xgzed-6-Osynbgcdz Gamma Globulins PEP Interpretation HDL Cholesterol TSH Arterial Blood Glucose Arterial Blood Ionized Calcium Urine WBC (Auto) Urine Creatinine Urine Total Protein Crossmatch 04/27/21 04/27/21 04/27/21 06:23 07:43 08:30 WBC RBC Hgb Hct MCH RDW Plt Count Seg Neuts % (Manual) Lymphocytes % (Manual) Nucleated RBC % Seg Neutrophils # Man Lymphocytes # (Manual) PT ABG pH 7.309 L POC ABG pCO2 POC ABG pO2 70.6 L ABG pO2 ABG O2 Saturation ABG Base Excess ABG Hemoglobin 9.16 L ABG Oxyhemoglobin 92.4 L ABG Potassium ABG Chloride ABG Glucose Oxyhemoglobin Carboxyhemoglobin Sodium Potassium Chloride 110.1 H Carbon Dioxide 15 L BUN 109 H Creatinine 4.3 H Glucose 218 H POC Glucose 187 H Hemoglobin A1c Lactic Acid Calcium Phosphorus Magnesium Transferrin AST 53 H ALT Alkaline Phosphatase 148 H Total Creatine Kinase 1000 H CK-MB (CK-2) Serum Total Protein Total Protein 5.2 L Albumin 1.2 L Hpqdm-9-Bjfjvwbtq Aqhrh-8-Gtjmmoxrc Gamma Globulins PEP Interpretation HDL Cholesterol TSH Arterial Blood Glucose Arterial Blood Ionized Calcium Urine WBC (Auto) Urine Creatinine Urine Total Protein Crossmatch 04/27/21 04/27/21 04/27/21 11:54 21:08 23:28 WBC RBC Hgb Hct MCH RDW Plt Count Seg Neuts % (Manual) Lymphocytes % (Manual) Nucleated RBC % Seg Neutrophils # Man Lymphocytes # (Manual) PT ABG pH POC ABG pCO2 POC ABG pO2 ABG pO2 ABG O2 Saturation ABG Base Excess ABG Hemoglobin ABG Oxyhemoglobin ABG Potassium ABG Chloride ABG Glucose Oxyhemoglobin Carboxyhemoglobin Sodium Potassium Chloride Carbon Dioxide BUN Creatinine Glucose POC Glucose 147 H 136 H 201 H Hemoglobin A1c Lactic Acid Calcium Phosphorus Magnesium Transferrin AST ALT Alkaline Phosphatase Total Creatine Kinase CK-MB (CK-2) Serum Total Protein Total Protein Albumin Hmubc-3-Yhzvbckej Ryptw-9-Qguutskzw Gamma Globulins PEP Interpretation HDL Cholesterol TSH Arterial Blood Glucose Arterial Blood Ionized Calcium Urine WBC (Auto) Urine Creatinine Urine Total Protein Crossmatch 04/28/21 04/28/21 04/28/21 04:00 04:00 05:00 WBC 12.6 H RBC 3.59 L Hgb 9.4 L Hct MCH 26 L RDW 16.6 H Plt Count 111 L Seg Neuts % (Manual) Lymphocytes % (Manual) 1.0 L Nucleated RBC % 4.0 H Seg Neutrophils # Man 11.6 H Lymphocytes # (Manual) 0.1 L PT 15.3 H ABG pH POC ABG pCO2 POC ABG pO2 ABG pO2 ABG O2 Saturation ABG Base Excess ABG Hemoglobin ABG Oxyhemoglobin ABG Potassium ABG Chloride ABG Glucose Oxyhemoglobin Carboxyhemoglobin Sodium 147 H Potassium 3.5 L D Chloride Carbon Dioxide BUN 79 H Creatinine 3.8 H Glucose 194 H POC Glucose Hemoglobin A1c Lactic Acid Calcium 8.1 L Phosphorus Magnesium Transferrin AST ALT Alkaline Phosphatase Total Creatine Kinase CK-MB (CK-2) Serum Total Protein Total Protein Albumin Gfkvk-8-Advrydzgv Orseh-3-Tjmdzmguu Gamma Globulins PEP Interpretation HDL Cholesterol TSH Arterial Blood Glucose Arterial Blood Ionized Calcium Urine WBC (Auto) Urine Creatinine Urine Total Protein Crossmatch 04/28/21 04/28/21 04/28/21 05:08 05:18 11:04 WBC RBC Hgb Hct MCH RDW Plt Count Seg Neuts % (Manual) Lymphocytes % (Manual) Nucleated RBC % Seg Neutrophils # Man Lymphocytes # (Manual) PT ABG pH POC ABG pCO2 POC ABG pO2 66.5 L ABG pO2 ABG O2 Saturation ABG Base Excess ABG Hemoglobin 9.7 L ABG Oxyhemoglobin 92.5 L ABG Potassium 3.2 L ABG Chloride ABG Glucose 200 H Oxyhemoglobin Carboxyhemoglobin Sodium Potassium Chloride Carbon Dioxide BUN Creatinine Glucose POC Glucose 183 H 174 H Hemoglobin A1c Lactic Acid Calcium Phosphorus Magnesium Transferrin AST ALT Alkaline Phosphatase Total Creatine Kinase CK-MB (CK-2) Serum Total Protein Total Protein Albumin Erits-7-Uaahsxxkc Kypay-9-Qbjmumzuz Gamma Globulins PEP Interpretation HDL Cholesterol TSH Arterial Blood Glucose 200 H Arterial Blood Ionized Calcium 4.5 L Urine WBC (Auto) Urine Creatinine Urine Total Protein Crossmatch 04/28/21 04/28/21 04/28/21 17:16 21:14 23:41 WBC RBC Hgb Hct MCH RDW Plt Count Seg Neuts % (Manual) Lymphocytes % (Manual) Nucleated RBC % Seg Neutrophils # Man Lymphocytes # (Manual) PT ABG pH POC ABG pCO2 POC ABG pO2 ABG pO2 ABG O2 Saturation ABG Base Excess ABG Hemoglobin ABG Oxyhemoglobin ABG Potassium ABG Chloride ABG Glucose Oxyhemoglobin Carboxyhemoglobin Sodium Potassium Chloride Carbon Dioxide BUN Creatinine Glucose POC Glucose 135 H 134 H 171 H Hemoglobin A1c Lactic Acid Calcium Phosphorus Magnesium Transferrin AST ALT Alkaline Phosphatase Total Creatine Kinase CK-MB (CK-2) Serum Total Protein Total Protein Albumin Vgkou-7-Kljtosypf Bwsiz-9-Lyftqsnqc Gamma Globulins PEP Interpretation HDL Cholesterol TSH Arterial Blood Glucose Arterial Blood Ionized Calcium Urine WBC (Auto) Urine Creatinine Urine Total Protein Crossmatch 04/29/21 04/29/21 04/29/21 01:16 04:00 04:00 WBC 13.3 H RBC 3.12 L Hgb 8.3 L Hct 26.2 L MCH 27 L RDW 16.3 H Plt Count 132 L Seg Neuts % (Manual) Lymphocytes % (Manual) Nucleated RBC % Seg Neutrophils # Man Lymphocytes # (Manual) PT ABG pH POC ABG pCO2 POC ABG pO2 ABG pO2 ABG O2 Saturation ABG Base Excess ABG Hemoglobin ABG Oxyhemoglobin ABG Potassium ABG Chloride ABG Glucose Oxyhemoglobin Carboxyhemoglobin Sodium Potassium Chloride Carbon Dioxide BUN 63 H Creatinine 3.4 H Glucose 249 H POC Glucose 236 H Hemoglobin A1c Lactic Acid Calcium 8.2 L Phosphorus Magnesium Transferrin AST 61 H ALT 71 H Alkaline Phosphatase 170 H Total Creatine Kinase CK-MB (CK-2) Serum Total Protein Total Protein 5.1 L Albumin 1.6 L Mfecq-1-Urxaynxsy Tcexg-9-Xejafvoyv Gamma Globulins PEP Interpretation HDL Cholesterol TSH Arterial Blood Glucose Arterial Blood Ionized Calcium Urine WBC (Auto) Urine Creatinine Urine Total Protein Crossmatch 04/29/21 04/29/21 04/29/21 11:35 13:30 16:01 WBC RBC Hgb Hct MCH RDW Plt Count Seg Neuts % (Manual) Lymphocytes % (Manual) Nucleated RBC % Seg Neutrophils # Man Lymphocytes # (Manual) PT ABG pH POC ABG pCO2 POC ABG pO2 ABG pO2 ABG O2 Saturation ABG Base Excess ABG Hemoglobin ABG Oxyhemoglobin ABG Potassium ABG Chloride ABG Glucose Oxyhemoglobin Carboxyhemoglobin Sodium Potassium Chloride Carbon Dioxide BUN Creatinine Glucose POC Glucose 320 H 297 H Hemoglobin A1c Lactic Acid Calcium Phosphorus Magnesium Transferrin AST ALT Alkaline Phosphatase Total Creatine Kinase CK-MB (CK-2) Serum Total Protein Total Protein Albumin Glvsv-1-Zzbzmqtuq Kcbxz-0-Numixfpmz Gamma Globulins PEP Interpretation HDL Cholesterol TSH Arterial Blood Glucose Arterial Blood Ionized Calcium Urine WBC (Auto) > 182.0 H Urine Creatinine Urine Total Protein Crossmatch 04/29/21 04/29/21 04/30/21 21:58 23:35 04:00 WBC 11.4 H RBC 3.27 L Hgb 8.7 L Hct 27.5 L MCH 27 L RDW 16.6 H Plt Count Seg Neuts % (Manual) Lymphocytes % (Manual) Nucleated RBC % Seg Neutrophils # Man Lymphocytes # (Manual) PT ABG pH POC ABG pCO2 POC ABG pO2 ABG pO2 ABG O2 Saturation ABG Base Excess ABG Hemoglobin ABG Oxyhemoglobin ABG Potassium ABG Chloride ABG Glucose Oxyhemoglobin Carboxyhemoglobin Sodium Potassium Chloride Carbon Dioxide BUN Creatinine Glucose POC Glucose 260 H 254 H Hemoglobin A1c Lactic Acid Calcium Phosphorus Magnesium Transferrin AST ALT Alkaline Phosphatase Total Creatine Kinase CK-MB (CK-2) Serum Total Protein Total Protein Albumin Mpkbo-3-Lsgiohbge Vkrdv-8-Qutalgfvb Gamma Globulins PEP Interpretation HDL Cholesterol TSH Arterial Blood Glucose Arterial Blood Ionized Calcium Urine WBC (Auto) Urine Creatinine Urine Total Protein Crossmatch 04/30/21 04/30/21 04/30/21 04:00 05:17 05:31 WBC RBC Hgb Hct MCH RDW Plt Count Seg Neuts % (Manual) Lymphocytes % (Manual) Nucleated RBC % Seg Neutrophils # Man Lymphocytes # (Manual) PT ABG pH 7.452 H POC ABG pCO2 30.5 L POC ABG pO2 54.5 L ABG pO2 ABG O2 Saturation ABG Base Excess ABG Hemoglobin 10.1 L ABG Oxyhemoglobin 87.4 L ABG Potassium 2.9 L ABG Chloride ABG Glucose 305 H Oxyhemoglobin Carboxyhemoglobin Sodium Potassium 3.1 L Chloride Carbon Dioxide BUN 79 H Creatinine 3.9 H Glucose 275 H POC Glucose 267 H Hemoglobin A1c Lactic Acid Calcium Phosphorus 5.60 H D Magnesium Transferrin AST ALT Alkaline Phosphatase Total Creatine Kinase CK-MB (CK-2) Serum Total Protein Total Protein Albumin Vmdmr-3-Ibjgyfaqn Lqwom-8-Vzcmateel Gamma Globulins PEP Interpretation HDL Cholesterol TSH Arterial Blood Glucose 305 H Arterial Blood Ionized Calcium Urine WBC (Auto) Urine Creatinine Urine Total Protein Crossmatch 04/30/21 04/30/21 04/30/21 12:31 17:50 22:24 WBC RBC Hgb Hct MCH RDW Plt Count Seg Neuts % (Manual) Lymphocytes % (Manual) Nucleated RBC % Seg Neutrophils # Man Lymphocytes # (Manual) PT ABG pH POC ABG pCO2 POC ABG pO2 ABG pO2 ABG O2 Saturation ABG Base Excess ABG Hemoglobin ABG Oxyhemoglobin ABG Potassium ABG Chloride ABG Glucose Oxyhemoglobin Carboxyhemoglobin Sodium Potassium Chloride Carbon Dioxide BUN Creatinine Glucose POC Glucose 259 H 161 H 146 H Hemoglobin A1c Lactic Acid Calcium Phosphorus Magnesium Transferrin AST ALT Alkaline Phosphatase Total Creatine Kinase CK-MB (CK-2) Serum Total Protein Total Protein Albumin Zhhvr-9-Qvvncavur Yfygr-5-Dozujfzyd Gamma Globulins PEP Interpretation HDL Cholesterol TSH Arterial Blood Glucose Arterial Blood Ionized Calcium Urine WBC (Auto) Urine Creatinine Urine Total Protein Crossmatch 05/01/21 05/01/21 05/01/21 00:09 03:30 04:00 WBC 12.0 H RBC 3.08 L Hgb 8.1 L Hct 25.6 L MCH 26 L RDW 16.3 H Plt Count Seg Neuts % (Manual) Lymphocytes % (Manual) Nucleated RBC % Seg Neutrophils # Man Lymphocytes # (Manual) PT ABG pH 7.493 H POC ABG pCO2 POC ABG pO2 ABG pO2 ABG O2 Saturation ABG Base Excess ABG Hemoglobin 9.3 L ABG Oxyhemoglobin ABG Potassium ABG Chloride ABG Glucose 167 H Oxyhemoglobin Carboxyhemoglobin 0.4 L Sodium Potassium Chloride Carbon Dioxide BUN Creatinine Glucose POC Glucose 149 H Hemoglobin A1c Lactic Acid Calcium Phosphorus Magnesium Transferrin AST ALT Alkaline Phosphatase Total Creatine Kinase CK-MB (CK-2) Serum Total Protein Total Protein Albumin Wqkvv-7-Zslyekntl Spzxh-3-Pauchjkfx Gamma Globulins PEP Interpretation HDL Cholesterol TSH Arterial Blood Glucose 167 H Arterial Blood Ionized Calcium Urine WBC (Auto) Urine Creatinine Urine Total Protein Crossmatch 05/01/21 05/01/21 05/01/21 04:00 05:48 11:49 WBC RBC Hgb Hct MCH RDW Plt Count Seg Neuts % (Manual) Lymphocytes % (Manual) Nucleated RBC % Seg Neutrophils # Man Lymphocytes # (Manual) PT ABG pH POC ABG pCO2 POC ABG pO2 ABG pO2 ABG O2 Saturation ABG Base Excess ABG Hemoglobin ABG Oxyhemoglobin ABG Potassium ABG Chloride ABG Glucose Oxyhemoglobin Carboxyhemoglobin Sodium Potassium 3.5 L Chloride Carbon Dioxide BUN 62 H Creatinine 3.3 H Glucose 179 H POC Glucose 197 H 167 H Hemoglobin A1c Lactic Acid Calcium 8.3 L Phosphorus Magnesium Transferrin AST ALT Alkaline Phosphatase Total Creatine Kinase CK-MB (CK-2) Serum Total Protein Total Protein Albumin Cdcez-3-Nxyveyval Ijxyu-1-Pbvajgzlk Gamma Globulins PEP Interpretation HDL Cholesterol TSH Arterial Blood Glucose Arterial Blood Ionized Calcium Urine WBC (Auto) Urine Creatinine Urine Total Protein Crossmatch 05/01/21 05/01/21 05/02/21 16:24 23:25 04:00 WBC 14.2 H RBC 2.61 L Hgb 6.9 L Hct 22.1 L MCH 27 L RDW 16.1 H Plt Count Seg Neuts % (Manual) Lymphocytes % (Manual) Nucleated RBC % Seg Neutrophils # Man Lymphocytes # (Manual) PT ABG pH POC ABG pCO2 POC ABG pO2 ABG pO2 ABG O2 Saturation ABG Base Excess ABG Hemoglobin ABG Oxyhemoglobin ABG Potassium ABG Chloride ABG Glucose Oxyhemoglobin Carboxyhemoglobin Sodium Potassium Chloride Carbon Dioxide BUN Creatinine Glucose POC Glucose 157 H 147 H Hemoglobin A1c Lactic Acid Calcium Phosphorus Magnesium Transferrin AST ALT Alkaline Phosphatase Total Creatine Kinase CK-MB (CK-2) Serum Total Protein Total Protein Albumin Ivzij-8-Egplcmfqm Deblt-1-Bfxirutei Gamma Globulins PEP Interpretation HDL Cholesterol TSH Arterial Blood Glucose Arterial Blood Ionized Calcium Urine WBC (Auto) Urine Creatinine Urine Total Protein Crossmatch 05/02/21 05/02/21 05/02/21 04:00 04:34 05:23 WBC RBC Hgb Hct MCH RDW Plt Count Seg Neuts % (Manual) Lymphocytes % (Manual) Nucleated RBC % Seg Neutrophils # Man Lymphocytes # (Manual) PT ABG pH 7.487 H POC ABG pCO2 POC ABG pO2 78.6 L ABG pO2 ABG O2 Saturation ABG Base Excess ABG Hemoglobin 11.5 L ABG Oxyhemoglobin ABG Potassium ABG Chloride ABG Glucose 122 H Oxyhemoglobin Carboxyhemoglobin Sodium Potassium Chloride Carbon Dioxide BUN 49 H Creatinine 2.8 H Glucose 117 H POC Glucose 119 H Hemoglobin A1c Lactic Acid Calcium Phosphorus Magnesium Transferrin AST ALT Alkaline Phosphatase Total Creatine Kinase CK-MB (CK-2) Serum Total Protein Total Protein Albumin Qcpar-0-Xoibfiwhs Wpuxy-7-Upvthbzaf Gamma Globulins PEP Interpretation HDL Cholesterol TSH Arterial Blood Glucose 122 H Arterial Blood Ionized Calcium Urine WBC (Auto) Urine Creatinine Urine Total Protein Crossmatch 05/02/21 05/02/21 05/02/21 12:00 12:04 17:29 WBC RBC Hgb Hct MCH RDW Plt Count Seg Neuts % (Manual) Lymphocytes % (Manual) Nucleated RBC % Seg Neutrophils # Man Lymphocytes # (Manual) PT ABG pH POC ABG pCO2 POC ABG pO2 ABG pO2 ABG O2 Saturation ABG Base Excess ABG Hemoglobin ABG Oxyhemoglobin ABG Potassium ABG Chloride ABG Glucose Oxyhemoglobin Carboxyhemoglobin Sodium Potassium Chloride Carbon Dioxide BUN Creatinine Glucose POC Glucose 115 H 120 H Hemoglobin A1c Lactic Acid Calcium Phosphorus Magnesium Transferrin AST ALT Alkaline Phosphatase Total Creatine Kinase CK-MB (CK-2) Serum Total Protein Total Protein Albumin Jzvba-3-Diumngpqq Yccco-6-Qviubufke Gamma Globulins PEP Interpretation HDL Cholesterol TSH Arterial Blood Glucose Arterial Blood Ionized Calcium Urine WBC (Auto) Urine Creatinine Urine Total Protein Crossmatch See Detail 05/02/21 05/03/21 05/03/21 23:36 04:00 04:00 WBC 13.9 H RBC 3.22 L Hgb 8.7 L Hct 27.4 L MCH 27 L RDW 15.8 H Plt Count Seg Neuts % (Manual) Lymphocytes % (Manual) Nucleated RBC % Seg Neutrophils # Man Lymphocytes # (Manual) PT ABG pH POC ABG pCO2 POC ABG pO2 ABG pO2 ABG O2 Saturation ABG Base Excess ABG Hemoglobin ABG Oxyhemoglobin ABG Potassium ABG Chloride ABG Glucose Oxyhemoglobin Carboxyhemoglobin Sodium 146 H Potassium 3.5 L Chloride 107.5 H Carbon Dioxide BUN 40 H Creatinine 2.5 H Glucose 104 H POC Glucose 130 H Hemoglobin A1c Lactic Acid Calcium Phosphorus Magnesium Transferrin AST 53 H ALT Alkaline Phosphatase 149 H Total Creatine Kinase CK-MB (CK-2) Serum Total Protein Total Protein 5.2 L Albumin 1.5 L Pjxua-0-Stpinfcts Rpznk-3-Bjmvygrvu Gamma Globulins PEP Interpretation HDL Cholesterol TSH Arterial Blood Glucose Arterial Blood Ionized Calcium Urine WBC (Auto) Urine Creatinine Urine Total Protein Crossmatch 05/03/21 05/04/21 05/04/21 17:26 01:24 04:48 WBC 14.3 H RBC 3.14 L Hgb 8.5 L Hct 26.3 L MCH 27 L RDW 15.8 H Plt Count Seg Neuts % (Manual) Lymphocytes % (Manual) Nucleated RBC % Seg Neutrophils # Man Lymphocytes # (Manual) PT ABG pH POC ABG pCO2 POC ABG pO2 ABG pO2 ABG O2 Saturation ABG Base Excess ABG Hemoglobin ABG Oxyhemoglobin ABG Potassium ABG Chloride ABG Glucose Oxyhemoglobin Carboxyhemoglobin Sodium Potassium Chloride Carbon Dioxide BUN Creatinine Glucose POC Glucose 123 H 146 H Hemoglobin A1c Lactic Acid Calcium Phosphorus Magnesium Transferrin AST ALT Alkaline Phosphatase Total Creatine Kinase CK-MB (CK-2) Serum Total Protein Total Protein Albumin Ccvdd-1-Ngbgmdufm Qejef-0-Izhktdxji Gamma Globulins PEP Interpretation HDL Cholesterol TSH Arterial Blood Glucose Arterial Blood Ionized Calcium Urine WBC (Auto) Urine Creatinine Urine Total Protein Crossmatch 05/04/21 05/04/21 05/04/21 04:48 05:15 11:24 WBC RBC Hgb Hct MCH RDW Plt Count Seg Neuts % (Manual) Lymphocytes % (Manual) Nucleated RBC % Seg Neutrophils # Man Lymphocytes # (Manual) PT ABG pH POC ABG pCO2 POC ABG pO2 ABG pO2 ABG O2 Saturation ABG Base Excess ABG Hemoglobin ABG Oxyhemoglobin ABG Potassium ABG Chloride ABG Glucose Oxyhemoglobin Carboxyhemoglobin Sodium Potassium 3.5 L Chloride Carbon Dioxide BUN 58 H Creatinine 3.4 H Glucose 168 H POC Glucose 162 H 145 H Hemoglobin A1c Lactic Acid Calcium Phosphorus 5.30 H Magnesium Transferrin AST ALT Alkaline Phosphatase Total Creatine Kinase CK-MB (CK-2) Serum Total Protein Total Protein Albumin Kpilz-3-Grpsqiboq Wsqhf-8-Tkaojwlkf Gamma Globulins PEP Interpretation HDL Cholesterol 24 L TSH Arterial Blood Glucose Arterial Blood Ionized Calcium Urine WBC (Auto) Urine Creatinine Urine Total Protein Crossmatch 05/04/21 05/04/21 05/05/21 16:01 23:32 04:00 WBC RBC Hgb Hct MCH RDW Plt Count Seg Neuts % (Manual) Lymphocytes % (Manual) Nucleated RBC % Seg Neutrophils # Man Lymphocytes # (Manual) PT ABG pH POC ABG pCO2 POC ABG pO2 ABG pO2 ABG O2 Saturation ABG Base Excess ABG Hemoglobin ABG Oxyhemoglobin ABG Potassium ABG Chloride ABG Glucose Oxyhemoglobin Carboxyhemoglobin Sodium Potassium 3.4 L Chloride Carbon Dioxide BUN 43 H Creatinine 2.7 H Glucose 124 H POC Glucose 148 H 134 H Hemoglobin A1c Lactic Acid Calcium 8.2 L Phosphorus Magnesium Transferrin AST ALT Alkaline Phosphatase Total Creatine Kinase CK-MB (CK-2) Serum Total Protein Total Protein Albumin Gmecc-8-Wtrthfnyi Mtyym-0-Crxmfsclw Gamma Globulins PEP Interpretation HDL Cholesterol TSH Arterial Blood Glucose Arterial Blood Ionized Calcium Urine WBC (Auto) Urine Creatinine Urine Total Protein Crossmatch 05/05/21 05/06/21 05/06/21 05:14 00:01 04:00 WBC RBC Hgb Hct MCH RDW Plt Count Seg Neuts % (Manual) Lymphocytes % (Manual) Nucleated RBC % Seg Neutrophils # Man Lymphocytes # (Manual) PT ABG pH POC ABG pCO2 POC ABG pO2 ABG pO2 ABG O2 Saturation ABG Base Excess ABG Hemoglobin ABG Oxyhemoglobin ABG Potassium ABG Chloride ABG Glucose Oxyhemoglobin Carboxyhemoglobin Sodium Potassium 3.2 L Chloride Carbon Dioxide BUN 56 H Creatinine 3.0 H Glucose 110 H POC Glucose 120 H 120 H Hemoglobin A1c Lactic Acid Calcium 7.8 L Phosphorus 4.60 H Magnesium Transferrin AST ALT Alkaline Phosphatase Total Creatine Kinase CK-MB (CK-2) Serum Total Protein Total Protein Albumin Bnlxr-5-Mpujilkyp Zaudr-8-Hqwomszwt Gamma Globulins PEP Interpretation HDL Cholesterol TSH Arterial Blood Glucose Arterial Blood Ionized Calcium Urine WBC (Auto) Urine Creatinine Urine Total Protein Crossmatch 05/06/21 05/06/21 05/06/21 04:27 05:15 17:37 WBC RBC 3.03 L Hgb 8.3 L Hct 25.4 L MCH 27 L RDW Plt Count Seg Neuts % (Manual) Lymphocytes % (Manual) Nucleated RBC % Seg Neutrophils # Man Lymphocytes # (Manual) PT ABG pH POC ABG pCO2 POC ABG pO2 ABG pO2 ABG O2 Saturation ABG Base Excess ABG Hemoglobin ABG Oxyhemoglobin ABG Potassium ABG Chloride ABG Glucose Oxyhemoglobin Carboxyhemoglobin Sodium Potassium Chloride Carbon Dioxide BUN Creatinine Glucose POC Glucose 137 H 132 H Hemoglobin A1c Lactic Acid Calcium Phosphorus Magnesium Transferrin AST ALT Alkaline Phosphatase Total Creatine Kinase CK-MB (CK-2) Serum Total Protein Total Protein Albumin Gycgu-4-Awteqhstj Qauip-7-Lzhmgolsf Gamma Globulins PEP Interpretation HDL Cholesterol TSH Arterial Blood Glucose Arterial Blood Ionized Calcium Urine WBC (Auto) Urine Creatinine Urine Total Protein Crossmatch 05/07/21 05/07/21 05/07/21 00:30 04:23 04:23 WBC RBC Hgb Hct MCH RDW Plt Count Seg Neuts % (Manual) Lymphocytes % (Manual) Nucleated RBC % Seg Neutrophils # Man Lymphocytes # (Manual) PT ABG pH POC ABG pCO2 POC ABG pO2 ABG pO2 ABG O2 Saturation ABG Base Excess ABG Hemoglobin ABG Oxyhemoglobin ABG Potassium ABG Chloride ABG Glucose Oxyhemoglobin Carboxyhemoglobin Sodium Potassium 3.4 L Chloride 107.1 H Carbon Dioxide BUN 28 H Creatinine 1.9 H Glucose 165 H POC Glucose 121 H Hemoglobin A1c Lactic Acid Calcium 8.2 L Phosphorus Magnesium 1.60 L Transferrin AST ALT Alkaline Phosphatase Total Creatine Kinase CK-MB (CK-2) Serum Total Protein Total Protein Albumin Eoidk-2-Lbezrkdrf Vqivq-3-Dugjhtnsd Gamma Globulins PEP Interpretation HDL Cholesterol TSH Arterial Blood Glucose Arterial Blood Ionized Calcium Urine WBC (Auto) Urine Creatinine Urine Total Protein Crossmatch 05/07/21 05/07/21 05/07/21 05:30 11:37 17:28 WBC RBC Hgb Hct MCH RDW Plt Count Seg Neuts % (Manual) Lymphocytes % (Manual) Nucleated RBC % Seg Neutrophils # Man Lymphocytes # (Manual) PT ABG pH POC ABG pCO2 POC ABG pO2 ABG pO2 ABG O2 Saturation ABG Base Excess ABG Hemoglobin ABG Oxyhemoglobin ABG Potassium ABG Chloride ABG Glucose Oxyhemoglobin Carboxyhemoglobin Sodium Potassium Chloride Carbon Dioxide BUN Creatinine Glucose POC Glucose 205 H 148 H 170 H Hemoglobin A1c Lactic Acid Calcium Phosphorus Magnesium Transferrin AST ALT Alkaline Phosphatase Total Creatine Kinase CK-MB (CK-2) Serum Total Protein Total Protein Albumin Dkunm-7-Cgoohdfzx Xoeid-5-Exqdolpvf Gamma Globulins PEP Interpretation HDL Cholesterol TSH Arterial Blood Glucose Arterial Blood Ionized Calcium Urine WBC (Auto) Urine Creatinine Urine Total Protein Crossmatch 05/07/21 05/08/21 05/08/21 23:57 05:12 05:12 WBC 11.2 H RBC 3.01 L Hgb 8.2 L Hct 25.5 L MCH 27 L RDW 15.4 H Plt Count Seg Neuts % (Manual) Lymphocytes % (Manual) Nucleated RBC % Seg Neutrophils # Man Lymphocytes # (Manual) PT ABG pH POC ABG pCO2 POC ABG pO2 ABG pO2 ABG O2 Saturation ABG Base Excess ABG Hemoglobin ABG Oxyhemoglobin ABG Potassium ABG Chloride ABG Glucose Oxyhemoglobin Carboxyhemoglobin Sodium Potassium 3.4 L Chloride Carbon Dioxide BUN 37 H Creatinine 2.1 H Glucose 160 H POC Glucose 172 H Hemoglobin A1c Lactic Acid Calcium 8.3 L Phosphorus Magnesium Transferrin AST ALT Alkaline Phosphatase Total Creatine Kinase CK-MB (CK-2) Serum Total Protein Total Protein Albumin Astsn-2-Srnaunfyc Fkveo-9-Csbirvlqy Gamma Globulins PEP Interpretation HDL Cholesterol TSH Arterial Blood Glucose Arterial Blood Ionized Calcium Urine WBC (Auto) Urine Creatinine Urine Total Protein Crossmatch 05/08/21 05/08/21 05/08/21 05:20 09:34 11:35 WBC RBC Hgb Hct MCH RDW Plt Count Seg Neuts % (Manual) Lymphocytes % (Manual) Nucleated RBC % Seg Neutrophils # Man Lymphocytes # (Manual) PT ABG pH POC ABG pCO2 POC ABG pO2 ABG pO2 ABG O2 Saturation ABG Base Excess ABG Hemoglobin ABG Oxyhemoglobin ABG Potassium ABG Chloride ABG Glucose Oxyhemoglobin Carboxyhemoglobin Sodium Potassium Chloride Carbon Dioxide BUN Creatinine Glucose POC Glucose 148 H 208 H Hemoglobin A1c Lactic Acid Calcium Phosphorus Magnesium Transferrin AST ALT Alkaline Phosphatase Total Creatine Kinase CK-MB (CK-2) Serum Total Protein Total Protein Albumin Vtxsr-0-Cioouzgod Admhn-2-Ixdjqfyxs Gamma Globulins PEP Interpretation HDL Cholesterol TSH Arterial Blood Glucose Arterial Blood Ionized Calcium Urine WBC (Auto) Urine Creatinine 56.0 H Urine Total Protein Crossmatch 05/08/21 05/08/21 05/09/21 16:55 23:57 05:30 WBC 12.8 H RBC 2.98 L Hgb 8.1 L Hct 25.4 L MCH 27 L RDW 15.4 H Plt Count Seg Neuts % (Manual) Lymphocytes % (Manual) Nucleated RBC % Seg Neutrophils # Man Lymphocytes # (Manual) PT ABG pH POC ABG pCO2 POC ABG pO2 ABG pO2 ABG O2 Saturation ABG Base Excess ABG Hemoglobin ABG Oxyhemoglobin ABG Potassium ABG Chloride ABG Glucose Oxyhemoglobin Carboxyhemoglobin Sodium Potassium Chloride Carbon Dioxide BUN Creatinine Glucose POC Glucose 179 H 183 H Hemoglobin A1c Lactic Acid Calcium Phosphorus Magnesium Transferrin AST ALT Alkaline Phosphatase Total Creatine Kinase CK-MB (CK-2) Serum Total Protein Total Protein Albumin Aafen-7-Cvnbtlykb Bhdfr-6-Fmyyzidql Gamma Globulins PEP Interpretation HDL Cholesterol TSH Arterial Blood Glucose Arterial Blood Ionized Calcium Urine WBC (Auto) Urine Creatinine Urine Total Protein Crossmatch 05/09/21 05/09/21 05/09/21 05:30 05:31 11:24 WBC RBC Hgb Hct MCH RDW Plt Count Seg Neuts % (Manual) Lymphocytes % (Manual) Nucleated RBC % Seg Neutrophils # Man Lymphocytes # (Manual) PT ABG pH POC ABG pCO2 POC ABG pO2 ABG pO2 ABG O2 Saturation ABG Base Excess ABG Hemoglobin ABG Oxyhemoglobin ABG Potassium ABG Chloride ABG Glucose Oxyhemoglobin Carboxyhemoglobin Sodium 150 H Potassium 3.2 L Chloride 110.2 H Carbon Dioxide BUN 37 H Creatinine 1.8 H Glucose 191 H POC Glucose 120 H 197 H Hemoglobin A1c Lactic Acid Calcium Phosphorus Magnesium Transferrin AST ALT Alkaline Phosphatase Total Creatine Kinase CK-MB (CK-2) Serum Total Protein Total Protein Albumin Ywwkl-8-Taofdcbdp Yaqmr-3-Snnmrwcls Gamma Globulins PEP Interpretation HDL Cholesterol TSH Arterial Blood Glucose Arterial Blood Ionized Calcium Urine WBC (Auto) Urine Creatinine Urine Total Protein Crossmatch 05/09/21 05/09/21 05/10/21 15:49 23:42 05:00 WBC RBC 2.99 L Hgb 8.2 L Hct 25.6 L MCH RDW 15.4 H Plt Count 456 H Seg Neuts % (Manual) Lymphocytes % (Manual) Nucleated RBC % Seg Neutrophils # Man Lymphocytes # (Manual) PT ABG pH POC ABG pCO2 POC ABG pO2 ABG pO2 ABG O2 Saturation ABG Base Excess ABG Hemoglobin ABG Oxyhemoglobin ABG Potassium ABG Chloride ABG Glucose Oxyhemoglobin Carboxyhemoglobin Sodium Potassium Chloride Carbon Dioxide BUN Creatinine Glucose POC Glucose 318 H 152 H Hemoglobin A1c Lactic Acid Calcium Phosphorus Magnesium Transferrin AST ALT Alkaline Phosphatase Total Creatine Kinase CK-MB (CK-2) Serum Total Protein Total Protein Albumin Boykt-0-Pxmugahsi Iplqq-6-Zpmofumws Gamma Globulins PEP Interpretation HDL Cholesterol TSH Arterial Blood Glucose Arterial Blood Ionized Calcium Urine WBC (Auto) Urine Creatinine Urine Total Protein Crossmatch 05/10/21 05/10/21 05/10/21 05:00 05:30 12:08 WBC RBC Hgb Hct MCH RDW Plt Count Seg Neuts % (Manual) Lymphocytes % (Manual) Nucleated RBC % Seg Neutrophils # Man Lymphocytes # (Manual) PT ABG pH POC ABG pCO2 POC ABG pO2 ABG pO2 ABG O2 Saturation ABG Base Excess ABG Hemoglobin ABG Oxyhemoglobin ABG Potassium ABG Chloride ABG Glucose Oxyhemoglobin Carboxyhemoglobin Sodium 148 H Potassium 3.4 L Chloride 110.5 H Carbon Dioxide BUN 36 H Creatinine 1.6 H Glucose 185 H POC Glucose 168 H 193 H Hemoglobin A1c Lactic Acid Calcium Phosphorus Magnesium Transferrin AST ALT Alkaline Phosphatase Total Creatine Kinase CK-MB (CK-2) Serum Total Protein Total Protein Albumin Amjpk-7-Crjfyghda Fmoqd-0-Wcnluungh Gamma Globulins PEP Interpretation HDL Cholesterol TSH Arterial Blood Glucose Arterial Blood Ionized Calcium Urine WBC (Auto) Urine Creatinine Urine Total Protein Crossmatch 05/10/21 05/10/21 05/11/21 18:02 23:25 05:40 WBC RBC 3.11 L Hgb 8.3 L Hct 26.6 L MCH 27 L RDW 15.7 H Plt Count 489 H Seg Neuts % (Manual) Lymphocytes % (Manual) Nucleated RBC % Seg Neutrophils # Man Lymphocytes # (Manual) PT ABG pH POC ABG pCO2 POC ABG pO2 ABG pO2 ABG O2 Saturation ABG Base Excess ABG Hemoglobin ABG Oxyhemoglobin ABG Potassium ABG Chloride ABG Glucose Oxyhemoglobin Carboxyhemoglobin Sodium Potassium Chloride Carbon Dioxide BUN Creatinine Glucose POC Glucose 205 H 171 H Hemoglobin A1c Lactic Acid Calcium Phosphorus Magnesium Transferrin AST ALT Alkaline Phosphatase Total Creatine Kinase CK-MB (CK-2) Serum Total Protein Total Protein Albumin Zidnp-3-Mqtywxpno Jkkwr-1-[place] Gamma Globulins PEP Interpretation HDL Cholesterol TSH Arterial Blood Glucose Arterial Blood Ionized Calcium Urine WBC (Auto) Urine Creatinine Urine Total Protein Crossmatch 05/11/21 05/11/21 05:40 11:45 WBC RBC Hgb Hct MCH RDW Plt Count Seg Neuts % (Manual) Lymphocytes % (Manual) Nucleated RBC % Seg Neutrophils # Man Lymphocytes # (Manual) PT ABG pH POC ABG pCO2 POC ABG pO2 ABG pO2 ABG O2 Saturation ABG Base Excess ABG Hemoglobin ABG Oxyhemoglobin ABG Potassium ABG Chloride ABG Glucose Oxyhemoglobin Carboxyhemoglobin Sodium 149 H Potassium Chloride 112.0 H Carbon Dioxide BUN 36 H Creatinine 1.4 H Glucose 164 H POC Glucose 176 H Hemoglobin A1c Lactic Acid Calcium Phosphorus Magnesium Transferrin AST ALT Alkaline Phosphatase Total Creatine Kinase CK-MB (CK-2) Serum Total Protein Total Protein Albumin Shqla-2-Yzggnkhim Kalfs-4-Cfqfyuecf Gamma Globulins PEP Interpretation HDL Cholesterol TSH Arterial Blood Glucose Arterial Blood Ionized Calcium Urine WBC (Auto) Urine Creatinine Urine Total Protein Crossmatch
--- NOTE | 2021-05-11 14:24 | Progress Note ---
Assessment and Plan Assessment Acute metabolic encephalopathy Diabetic hyperosmolar non-ketotic state SYED (acute kidney injury) Dehydration Hypernatremia Rhabdomyolysis Hypernatremia GERD (gastroesophageal reflux disease) Metabolic acidosis Leukocytosis Plan: Renal labs reviewed. Serum creatinine 1.4 today, yesterday's was 1.6, UOP 1870 ml No indication for HD at this time 24 hours creatinine clearance was ~30 ml/min Recent sodium level is 149, prior was 148 and 150- D5W@50 ml/hr Start Free water flushes 250 ml every 4 hours via TF Renally dose medications Strict I&O's daily Obtain daily weights Continue to monitor renal function and sodium levels Plan of care reviewed by Dr. Hannah Subjective Date of service: 05/11/21 Principal diagnosis: Acute respiratory failure Interval history: Patient seen lying in bed. Intubated. No family at bedside. Objective - Vital Signs Vital signs: Vital Signs - 12hr 05/11/21 05/11/21 05/11/21 02:30 03:00 03:30 Temperature Pulse Rate 94 H 93 H 94 H Pulse Rate [ From Monitor] Respiratory 23 16 16 Rate Blood Pressure 160/73 152/77 145/72 O2 Sat by Pulse 98 97 98 Oximetry 05/11/21 05/11/21 05/11/21 03:46 04:00 04:30 Temperature 98.4 F Pulse Rate 84 88 94 H Pulse Rate [ 91 H From Monitor] Respiratory 16 17 Rate Blood Pressure 145/72 140/68 165/72 O2 Sat by Pulse 97 97 98 Oximetry 05/11/21 05/11/21 05/11/21 05:00 05:30 06:00 Temperature Pulse Rate 92 H 90 91 H Pulse Rate [ From Monitor] Respiratory 14 15 14 Rate Blood Pressure 166/70 143/66 158/65 O2 Sat by Pulse 98 98 98 Oximetry 05/11/21 05/11/21 05/11/21 06:30 07:00 07:30 Temperature Pulse Rate 94 H 94 H 92 H Pulse Rate [ From Monitor] Respiratory 20 26 H 20 Rate Blood Pressure 161/68 150/71 142/69 O2 Sat by Pulse 99 98 98 Oximetry 05/11/21 05/11/21 05/11/21 08:00 09:00 10:00 Temperature 98.6 F Pulse Rate 100 H 94 H 92 H Pulse Rate [ 88 From Monitor] Respiratory 15 15 15 Rate Blood Pressure 154/76 160/80 163/86 O2 Sat by Pulse 98 98 98 Oximetry 05/11/21 05/11/21 05/11/21 10:30 10:52 11:00 Temperature Pulse Rate 89 88 100 H Pulse Rate [ From Monitor] Respiratory 14 21 Rate Blood Pressure 170/81 170/81 154/76 O2 Sat by Pulse 98 98 Oximetry 05/11/21 05/11/21 05/11/21 11:30 12:00 12:30 Temperature 98.4 F Pulse Rate 106 H 105 H 110 H Pulse Rate [ 100 H From Monitor] Respiratory 24 21 18 Rate Blood Pressure 148/72 150/75 158/73 O2 Sat by Pulse 97 96 97 Oximetry 05/11/21 13:00 Temperature Pulse Rate 104 H Pulse Rate [ From Monitor] Respiratory 21 Rate Blood Pressure 147/70 O2 Sat by Pulse 98 Oximetry - General Appearance General appearance: sedated on ventilator, intubated EENT: ATNC Neck: no JVD Respiratory: Present: Decreased Breath Sounds, Other (Intubated) Cardiology: S1S2 Gastrointestinal: normoactive bowel sounds Neurologic: other (Not awake) Musculoskeletal: other (trace edema) - Lab 05/11/21 05:40 05/11/21 05:40 Most recent lab results ABG pH 7.487 (7.320-7.450) H 05/02/21 04:34 ABG pCO2 31.6 mm Hg 04/21/21 15:47 ABG pO2 168.1 mm Hg (80.0-90.0) H 04/21/21 15:47 ABG HCO3 23.3 mmol/L (20.0-26.0) 04/21/21 15:47 ABG O2 Saturation 96.0 (0-100) 05/02/21 04:34 Calcium 8.8 mg/dL (8.4-10.2) 05/11/21 05:40 Phosphorus 2.90 mg/dL (2.5-4.5) 05/11/21 05:40 Magnesium 2.00 mg/dL (1.7-2.3) 05/11/21 05:40 Urine Creatinine 56.0 mg/dL (0.1-20.0) H 05/08/21 09:34 Urine Sodium 71 mmol/L 04/21/21 08:01 Urine Total Protein 12 mg/dL (5-11.8) H 04/21/21 08:01 Medications & Allergies - Medications Allergies/Adverse Reactions: Allergies No Known Allergies Allergy (Unverified 04/20/21 14:35) Active Medications: Generic Name Dose Route Start Last Admin Trade Name Freq PRN Reason Stop Dose Admin Acetaminophen 650 mg 04/20/21 21:31 05/01/21 18:15 Acetaminophen 325 Mg Tab PO 650 mg Q4H PRN Administration Pain MILD(1-3)/Fever >100.5/TURCIOS Albumin Human 25 gm 05/06/21 16:06 05/06/21 16:21 Albumin Human 25% (25 Gm/100 Ml) Inj IV 25 gm MITCH PRN Administration Hypotension Albuterol 2.5 mg 04/22/21 14:49 04/23/21 15:18 Albuterol 2.5 Mg/3 Ml Nebu IH 2.5 mg Q4HRT PRN Administration Shortness Of Breath Lipase/Protease/Amylase 1 each 04/25/21 14:13 Lipase 10,500/Protease 25,000/Amylase 43,750 (Units) Dr Vasquez FEEDTUBE PRN PRN For Clogged Feeding Tube Aspirin 81 mg 05/04/21 10:00 05/11/21 09:45 Aspirin 81 Mg Tab Chew FEEDTUBE 81 mg QDAY AZIZA Administration Atorvastatin Calcium 40 mg 05/04/21 22:00 05/10/21 21:19 Atorvastatin 40 Mg Tab FEEDTUBE 40 mg QHS AZIZA Administration Dextrose 50 ml 04/24/21 11:36 Dextrose 50% In Water (25gm) 50 Ml Syringe IV Q30MIN PRN Hypoglycemia Protocol Famotidine 10 mg 04/27/21 10:00 05/11/21 09:45 Famotidine 10 Mg Tab FEEDTUBE 10 mg BID AZIZA Administration Heparin Sodium (Porcine) 5,000 unit 05/10/21 22:00 05/11/21 09:45 Heparin 5,000 Unit/1 Ml Vial SUB-Q 5,000 unit Q12HR AZIZA Administration Hydralazine HCl 10 mg 04/24/21 21:22 05/11/21 10:52 Hydralazine 20 Mg/1 Ml Inj IV 10 mg Q4HR PRN Administration SBP >/=170 Hydrophilic Ointment 1 applic 04/26/21 11:16 Lip Therapy Vaseline TP Q2HR PRN Dry Lips NORepinephrine/NS 8 MG-250 ML 8 mg in 250 mls @ 3.75 mls/hr 04/26/21 16:00 05/04/21 21:34 Norepinephrine/Ns 8 Mg-250 Ml (Double Conc) IV 0 mcg/min TITRATE AZIZA 0 mls/hr Titration Protocol 2 MCG/MIN Sodium Chloride 100 mls @ 999 mls/hr 05/06/21 16:06 Nacl 0.9% IV MITCH PRN Hypotension Insulin Human Lispro 0 unit 04/25/21 18:00 05/11/21 12:45 Insulin Lispro 100 Unit/Ml SUB-Q 3 unit Q6HR AZIZA Administration Protocol Levothyroxine Sodium 50 mcg 05/03/21 06:00 05/11/21 05:49 Levothyroxine 50 Mcg Tab PO 50 mcg DAILY@0600 AZIZA Administration Lorazepam 1 mg 04/26/21 11:15 05/10/21 10:46 Lorazepam 2 Mg/Ml Vial IV 1 mg Q4H PRN Administration Sedation Metoclopramide HCl 5 mg 04/20/21 21:31 Metoclopramide 10 Mg/2 Ml Inj IV Q6H PRN Nausea And Vomiting Multi-Ingred Cream/Lotion/Oil/Oint 1 applic 04/26/21 11:16 Mineral Oil/Petrolatum, White Ophth Oint 3.5 Gm OU Q4HR PRN Dry Eye(s) Ondansetron HCl 4 mg 04/20/21 21:31 Ondansetron 4 Mg/2 Ml Inj IV Q8H PRN Nausea And Vomiting Senna/Docusate Sodium 1 tab 04/26/21 22:00 05/11/21 09:45 Sennosides/Docusate Sodium 8.6/50 Mg Tab FEEDTUBE 1 tab BID AZIZA Administration Simple Syrup 15 ml 04/25/21 14:13 Simple Syrup 15 Ml FEEDTUBE PRN PRN Hypoglycemia Simple Syrup 30 ml 04/25/21 14:13 Simple Syrup 15 Ml FEEDTUBE PRN PRN Hypoglycemia Sodium Bicarbonate 325 mg 04/25/21 14:13 04/27/21 13:00 Sodium Bicarbonate 325 Mg Tab FEEDTUBE 325 mg PRN PRN Administration For Clogged Feeding Tube Sodium Bicarbonate 1,300 mg 04/27/21 14:00 05/11/21 09:45 Sodium Bicarbonate 650 Mg Tab PO 1,300 mg TID AZIZA Administration Sodium Chloride 10 ml 04/20/21 22:00 05/11/21 10:52 Sodium Chloride 0.9% 10 Ml Flush Syringe IV 10 ml BID AZIZA Administration Sodium Chloride 10 ml 04/20/21 21:31 Sodium Chloride 0.9% 10 Ml Flush Syringe IV PRN PRN LINE FLUSH
[2021-05-11] MEDS ORDERED: DEXTROSE 5% IN WATER 1,000 ML IV SCH (16:00)
[2021-05-11] MEDS: LORazepam 2 MG/ML VIAL IV PRN (20:13)
[2021-05-12] MEDS: INSULIN LISPRO 100 UNIT/ML SUB-Q SCH ×5 (01:05→23:26)
[2021-05-12] MEDS: FREE WATER PO SCH ×7 (02:00→22:34)
[2021-05-12] MEDS: LORazepam 2 MG/ML VIAL IV PRN ×3 (05:13→16:27)
[2021-05-12 05:42] LABS: Hematocrit 26.6 % (30.3-42.9); Hemoglobin 8.4 gm/dl (10.1-14.3); Mean Corpuscular HGB Conc 31 % (30-34); Mean Corpuscular Volume 85 fl (79-97); Platelet Count 496 K/mm3 (140-440); Red Blood Count 3.13 M/mm3 (3.65-5.03); Red Cell Distribution Width 15.7 % (13.2-15.2)
[2021-05-12] MEDS: LEVOTHYROXINE 50 MCG TAB PO SCH (05:50)
[2021-05-12 06:02] LABS: Calcium 8.3 mg/dL (8.4-10.2)
[2021-05-12] MEDS: SODIUM BICARBONATE 650 MG TAB PO SCH ×3 (08:57→20:26)
[2021-05-12] MEDS: HEPARIN 5,000 UNIT/1 ML VIAL SUB-Q SCH ×2 (09:56→21:46)
[2021-05-12] MEDS: SENNOSIDES/DOCUSATE SODIUM 8.6/50 MG TAB FEEDTUBE SCH ×2 (09:57→21:46)
[2021-05-12] MEDS: FAMOTIDINE 10 MG TAB FEEDTUBE SCH ×2 (09:57→21:46)
[2021-05-12] MEDS: amLODIPine 5 MG TAB PO SCH (09:57)
[2021-05-12] MEDS: ASPIRIN 81 MG TAB CHEW FEEDTUBE SCH (09:57)
--- NOTE | 2021-05-12 12:35 | Progress Note ---
Assessment and Plan 80 y/o female with altered mental state, severe electrolyte imbalance with presumptive acute renal failure and hypothermia. 05/12/21: Daily PSV trials. NPO after midnight and chemistry in am. Trach tomorrow and then transfer over the weekend if all goes well. 05/11/21: Awaiting trach and peg placement. Discontinue vascath. Daily pSV trials. 05/10/21: Long discussion over phone with POA. Discussed what I felt was prognosis. Per POA, feels best thing to do at this moment is proceed with trach and peg. Will consult surgery for this. Spoke with renal and they feel she likely will not need HD anymore. Will keep catheter at least another 24-36 hours and likely remove sometime tomorrow. Continue daily PSV and other suppor tive measures. Placement post Trach. 05/09/21: Will reach out to neuro for more help. Read their note this am but need a definite plan. Would like to meet/talk with POA about next steps but need a better idea of what her neuro prognosis is. Continue daily PSV trials. Prognosis overall appears to be very guarded to poor. 05/08/21: Continue supportive measures. HD per renal. Follow up neuro recs tomorrow. Need to start talking with family about next steps but need neuro input. Daily pSV to document failing. 05/07/21: Continue supportive measures. HD per renal. Follow up neuro recs t omorrow. Need to start talking with family about next steps but need neuro input. 05/06/21: Await neurology recs now that LINCOLN Could not be done. Based on neurology note, no direct source for stroke on MRA. Patient was seen on this day and can be confirmed by staff. Not sure why my note did not save. 05/05/21: follow up neurology notes. They are discussing with cards the LINCOLN. Continue vent support. Poor prognosis. 05/04/21: follow up MRA when done. LINCOLN pending. HD per renal. Daily PSV trials as tolerated. Poor prognosis given MRI findings and lack of responsiveness off sedation. 05/03/21: Follow up Neurology recs for today. Attempt PSV trials. HD on yesterday. Very very guarded prognosis. 05/02/21: MRI today. Repeat cultures. HD per renal. Once MRI results back will discuss with Neurosurgery to see if anything further should be done. Abx per ID. Overall prognosis is very guarded to poor. 04/29/21: Will reach out to neuro after 24-48 hours post spinal tap pending any change in mentation. If improvement, may need to consider shunt placement. If not, not sure that there is anything they can offer. if they still want MRI, then can obtain. Now spiking temps. Blood cultures and UA. Given time frame in Hospital will place on Vanc and Cefepime. Guarded prognosis. HD per renal. Given anasarca, will ask renal about trying to remove volume. 04/28/21: Will discuss with renal about HD again today. MRI vs LP (large amount). Coags are ok. Will attempt to get at least one of these done today. Patient is still on 80% but sat is 100. Will ask RIBBING MACHINE OPERATOR about placing ART line today. Wean FiO2 as tolerated. Guarded prognosis. 04/27/21: HD today per renal. Vascath placed and awaiting CXR for conformation of good placement (done and good). Vent weaning as tolerated for sats >88%. ABG in the AM. Will check Coags in the am and hopeful these are stable. Mickey telets need to above 50K. Would like to do large volume spinal tap to see if this helps with mentation. Will also obtain MRI once oxygen requirement improves. 04/26/21: WIll electively intubate and then obtain MRI. Pending MRI results, will likely order large volume spinal tap to assess if NPH is a factor or not. Guarded prognosis. Electrolytes are improving. 04/25/21: Continue to follow renal recs. Will reach out to POA either today or tomorrow for further updates. Follow up renal recs. Monitor electrolytes and renal function. Guarded prognosis. 1. Neuro-reached out to neuro surgery, placed consult in regards to CT findings 2. Renal-appreciate help and recs, will follow IV hydration recommendations 3. Blood cultures. Urine was negative 4. Jorge Hugger for temp Guarded prognosis CCT 31 minutes. Subjective Date of service: 05/12/21 Principal diagnosis: Acute respiratory failure Interval history: No acute events. Stable pulm status. Set for trach and peg tomorrow. Objective Vital Signs - 12hr 05/12/21 05/12/21 05/12/21 00:36 01:00 01:30 Temperature Pulse Rate 99 H 93 H 87 Pulse Rate [ From Monitor] Respiratory 14 14 Rate Blood Pressure 194/83 192/89 153/84 O2 Sat by Pulse 99 97 98 Oximetry 05/12/21 05/12/21 05/12/21 02:00 02:30 03:00 Temperature Pulse Rate 86 91 H 90 Pulse Rate [ From Monitor] Respiratory 14 15 14 Rate Blood Pressure 160/79 145/85 147/88 O2 Sat by Pulse 98 98 98 Oximetry 05/12/21 05/12/21 05/12/21 03:30 03:37 04:00 Temperature 97.3 F L Pulse Rate 93 H 85 Pulse Rate [ 94 H From Monitor] Respiratory 16 19 Rate Blood Pressure 138/90 156/60 O2 Sat by Pulse 99 97 Oximetry 05/12/21 05/12/21 05/12/21 04:01 04:30 05:00 Temperature Pulse Rate 92 H 95 H 101 H Pulse Rate [ From Monitor] Respiratory 14 22 13 Rate Blood Pressure 180/94 165/80 184/83 O2 Sat by Pulse 98 98 98 Oximetry 05/12/21 05/12/21 05/12/21 05:30 06:00 06:30 Temperature Pulse Rate 84 85 88 Pulse Rate [ From Monitor] Respiratory 14 14 14 Rate Blood Pressure 156/60 158/62 170/70 O2 Sat by Pulse 97 97 99 Oximetry 05/12/21 05/12/21 05/12/21 07:00 07:30 08:00 Temperature 97.5 F L Pulse Rate 80 78 80 Pulse Rate [ 80 From Monitor] Respiratory 14 14 14 Rate Blood Pressure 157/55 155/55 160/58 O2 Sat by Pulse 98 98 98 Oximetry 05/12/21 05/12/21 05/12/21 08:15 08:30 09:00 Temperature Pulse Rate 78 81 87 Pulse Rate [ From Monitor] Respiratory 14 23 Rate Blood Pressure 160/58 183/73 187/72 O2 Sat by Pulse 98 98 98 Oximetry 05/12/21 05/12/21 05/12/21 09:31 09:57 10:01 Temperature Pulse Rate 85 86 85 Pulse Rate [ From Monitor] Respiratory 16 12 Rate Blood Pressure 146/69 146/69 185/62 O2 Sat by Pulse 98 97 Oximetry 05/12/21 05/12/21 05/12/21 10:31 11:00 11:24 Temperature Pulse Rate 79 86 85 Pulse Rate [ From Monitor] Respiratory 14 14 Rate Blood Pressure 174/58 193/89 O2 Sat by Pulse 97 99 97 Oximetry 05/12/21 05/12/21 05/12/21 11:31 12:00 12:01 Temperature 97.7 F Pulse Rate 87 88 88 Pulse Rate [ From Monitor] Respiratory 15 15 Rate Blood Pressure 199/98 215/96 O2 Sat by Pulse 98 97 Oximetry 05/12/21 12:16 Temperature Pulse Rate 88 Pulse Rate [ From Monitor] Respiratory Rate Blood Pressure 230/59 O2 Sat by Pulse Oximetry Constitutional: other (critically ill, somnolent, on vent) Eyes: non-icteric ENT: oropharynx dry Effort: other (tachypneic but not labored) Ascultation: Bilateral: clear Cardiovascular: regular rate and rhythm Gastrointestinal: normoactive bowel sounds Integumentary: normal Extremities: no cyanosis, no edema, pink and warm Neurologic: unable to assess Psychiatric: other (unable to assess) CBC and BMP: 05/12/21 04:10 05/12/21 04:10 ABG, PT/INR, D-dimer: ABG ABG pH 7.487 (7.320-7.450) H 05/02/21 04:34 POC ABG pCO2 35.3 mmHg (32.0-48.0) 05/02/21 04:34 ABG pCO2 31.6 mm Hg 04/21/21 15:47 POC ABG pO2 78.6 mmHg (83-108) L 05/02/21 04:34 ABG pO2 168.1 mm Hg (80.0-90.0) H 04/21/21 15:47 POC ABG HCO3 26.1 05/02/21 04:34 ABG O2 Saturation 96.0 (0-100) 05/02/21 04:34 PT/INR, D-dimer PT 15.3 Sec. (12.2-14.9) H 04/28/21 05:00 INR 1.09 (0.87-1.13) 04/28/21 05:00 Abnormal lab findings: Abnormal Labs 04/20/21 04/20/21 04/20/21 17:10 17:10 17:10 WBC 17.4 H RBC 5.19 H Hgb Hct 46.8 H MCH 27 L RDW 17.2 H Plt Count Seg Neuts % (Manual) 98.0 H Lymphocytes % (Manual) 2.0 L Nucleated RBC % 1.0 H Seg Neutrophils # Man 17.1 H Lymphocytes # (Manual) 0.3 L PT ABG pH POC ABG pCO2 POC ABG pO2 ABG pO2 ABG O2 Saturation ABG Base Excess ABG Hemoglobin ABG Oxyhemoglobin ABG Potassium ABG Chloride ABG Glucose Oxyhemoglobin Carboxyhemoglobin Sodium 173 H* Potassium Chloride 132.9 H Carbon Dioxide 17 L BUN 120 H Creatinine 4.2 H Glucose 762 H* POC Glucose Hemoglobin A1c Lactic Acid Calcium Phosphorus Magnesium 3.80 H Transferrin AST 72 H ALT 63 H Alkaline Phosphatase 148 H Total Creatine Kinase 3697 H CK-MB (CK-2) 36.0 H Serum Total Protein Total Protein Albumin 2.2 L Gpxgw-1-Imspzdiwx Fjmgx-2-Rtcstmsvs Gamma Globulins PEP Interpretation HDL Cholesterol TSH Arterial Blood Glucose Arterial Blood Ionized Calcium Urine WBC (Auto) Urine Creatinine Urine Total Protein Crossmatch 04/20/21 04/20/21 04/20/21 17:10 17:10 18:55 WBC RBC Hgb Hct MCH RDW Plt Count Seg Neuts % (Manual) Lymphocytes % (Manual) Nucleated RBC % Seg Neutrophils # Man Lymphocytes # (Manual) PT ABG pH POC ABG pCO2 POC ABG pO2 ABG pO2 ABG O2 Saturation ABG Base Excess ABG Hemoglobin ABG Oxyhemoglobin ABG Potassium ABG Chloride ABG Glucose Oxyhemoglobin Carboxyhemoglobin Sodium Potassium Chloride Carbon Dioxide BUN Creatinine Glucose POC Glucose 574 H Hemoglobin A1c Lactic Acid 2.60 H* Calcium Phosphorus Magnesium Transferrin AST ALT Alkaline Phosphatase Total Creatine Kinase CK-MB (CK-2) Serum Total Protein Total Protein Albumin Rthry-1-Hecavjcxd Twjcu-0-Czigzcsjb Gamma Globulins PEP Interpretation HDL Cholesterol TSH 6.040 H Arterial Blood Glucose Arterial Blood Ionized Calcium Urine WBC (Auto) Urine Creatinine Urine Total Protein Crossmatch 04/20/21 04/20/21 04/20/21 22:12 22:58 22:58 WBC RBC Hgb Hct MCH RDW Plt Count Seg Neuts % (Manual) Lymphocytes % (Manual) Nucleated RBC % Seg Neutrophils # Man Lymphocytes # (Manual) PT ABG pH POC ABG pCO2 POC ABG pO2 ABG pO2 ABG O2 Saturation ABG Base Excess ABG Hemoglobin ABG Oxyhemoglobin ABG Potassium ABG Chloride ABG Glucose Oxyhemoglobin Carboxyhemoglobin Sodium 172 H* Potassium 3.2 L Chloride 134.2 H Carbon Dioxide 17 L BUN 112 H Creatinine 3.8 H Glucose 803 H* POC Glucose 554 H Hemoglobin A1c Lactic Acid Calcium 8.3 L Phosphorus Magnesium 3.50 H Transferrin AST ALT Alkaline Phosphatase Total Creatine Kinase CK-MB (CK-2) Serum Total Protein Total Protein Albumin Zsvmn-6-Rwmphqgmq Tfrdc-0-Nyrfztqfj Gamma Globulins PEP Interpretation HDL Cholesterol TSH Arterial Blood Glucose Arterial Blood Ionized Calcium Urine WBC (Auto) Urine Creatinine Urine Total Protein Crossmatch 04/21/21 04/21/21 04/21/21 00:14 00:22 02:01 WBC RBC Hgb Hct MCH RDW Plt Count Seg Neuts % (Manual) Lymphocytes % (Manual) Nucleated RBC % Seg Neutrophils # Man Lymphocytes # (Manual) PT ABG pH POC ABG pCO2 POC ABG pO2 ABG pO2 ABG O2 Saturation ABG Base Excess ABG Hemoglobin ABG Oxyhemoglobin ABG Potassium ABG Chloride ABG Glucose Oxyhemoglobin Carboxyhemoglobin Sodium 176 H* 175 H* Potassium 2.9 L* 3.0 L Chloride 139.9 H 136.2 H Carbon Dioxide 17 L 19 L BUN 113 H 112 H Creatinine 3.9 H 3.6 H Glucose 729 H* 582 H* POC Glucose > 600 H Hemoglobin A1c Lactic Acid Calcium Phosphorus Magnesium Transferrin AST ALT Alkaline Phosphatase Total Creatine Kinase CK-MB (CK-2) Serum Total Protein Total Protein Albumin Zsyqr-7-Bnoxmzivm Pnymj-0-Lygzgmgkq Gamma Globulins PEP Interpretation HDL Cholesterol TSH Arterial Blood Glucose Arterial Blood Ionized Calcium Urine WBC (Auto) Urine Creatinine Urine Total Protein Crossmatch 04/21/21 04/21/21 04/21/21 03:11 03:20 03:41 WBC 14.1 H RBC Hgb Hct MCH 27 L RDW 16.8 H Plt Count 114 L Seg Neuts % (Manual) 97.0 H Lymphocytes % (Manual) 3.0 L Nucleated RBC % 1.0 H Seg Neutrophils # Man 13.7 H Lymphocytes # (Manual) 0.4 L PT ABG pH POC ABG pCO2 POC ABG pO2 ABG pO2 52.3 L ABG O2 Saturation 84.5 L ABG Base Excess -2.9 L ABG Hemoglobin ABG Oxyhemoglobin ABG Potassium ABG Chloride ABG Glucose Oxyhemoglobin 82.9 L Carboxyhemoglobin Sodium Potassium Chloride Carbon Dioxide BUN Creatinine Glucose POC Glucose 404 H Hemoglobin A1c Lactic Acid Calcium Phosphorus Magnesium Transferrin AST ALT Alkaline Phosphatase Total Creatine Kinase CK-MB (CK-2) Serum Total Protein Total Protein Albumin Uykto-7-Obfjlsqdx Hrlvp-8-Dhqusieim Gamma Globulins PEP Interpretation HDL Cholesterol TSH Arterial Blood Glucose Arterial Blood Ionized Calcium Urine WBC (Auto) Urine Creatinine Urine Total Protein Crossmatch 04/21/21 04/21/21 04/21/21 03:41 04:24 05:45 WBC RBC Hgb Hct MCH RDW Plt Count Seg Neuts % (Manual) Lymphocytes % (Manual) Nucleated RBC % Seg Neutrophils # Man Lymphocytes # (Manual) PT ABG pH POC ABG pCO2 POC ABG pO2 ABG pO2 ABG O2 Saturation ABG Base Excess ABG Hemoglobin ABG Oxyhemoglobin ABG Potassium ABG Chloride ABG Glucose Oxyhemoglobin Carboxyhemoglobin Sodium 179 H* Potassium 2.9 L* Chloride 138.2 H Carbon Dioxide 20 L BUN 111 H Creatinine 3.7 H Glucose 465 H POC Glucose 353 H 280 H Hemoglobin A1c Lactic Acid Calcium Phosphorus Magnesium Transferrin AST 73 H ALT 61 H Alkaline Phosphatase 144 H Total Creatine Kinase CK-MB (CK-2) Serum Total Protein Total Protein Albumin 2.5 L Uzwfl-6-Qdwtzegrj Pgnls-2-Wfoxkfcjc Gamma Globulins PEP Interpretation HDL Cholesterol TSH Arterial Blood Glucose Arterial Blood Ionized Calcium Urine WBC (Auto) Urine Creatinine Urine Total Protein Crossmatch 04/21/21 04/21/21 04/21/21 06:47 08:01 11:11 WBC RBC Hgb Hct MCH RDW Plt Count Seg Neuts % (Manual) Lymphocytes % (Manual) Nucleated RBC % Seg Neutrophils # Man Lymphocytes # (Manual) PT ABG pH POC ABG pCO2 POC ABG pO2 ABG pO2 ABG O2 Saturation ABG Base Excess ABG Hemoglobin ABG Oxyhemoglobin ABG Potassium ABG Chloride ABG Glucose Oxyhemoglobin Carboxyhemoglobin Sodium Potassium Chloride Carbon Dioxide BUN Creatinine Glucose POC Glucose 260 H 68 L Hemoglobin A1c Lactic Acid Calcium Phosphorus Magnesium Transferrin AST ALT Alkaline Phosphatase Total Creatine Kinase CK-MB (CK-2) Serum Total Protein Total Protein Albumin Lecmu-9-Vcxcihuxz Tgjcd-7-Lgdcjfihb Gamma Globulins PEP Interpretation HDL Cholesterol TSH Arterial Blood Glucose Arterial Blood Ionized Calcium Urine WBC (Auto) Urine Creatinine 44.3 H Urine Total Protein 12 H Crossmatch 04/21/21 04/21/21 04/21/21 12:51 13:41 14:40 WBC RBC Hgb Hct MCH RDW Plt Count Seg Neuts % (Manual) Lymphocytes % (Manual) Nucleated RBC % Seg Neutrophils # Man Lymphocytes # (Manual) PT ABG pH 7.275 L POC ABG pCO2 POC ABG pO2 63.4 L ABG pO2 ABG O2 Saturation ABG Base Excess ABG Hemoglobin 8.4 L ABG Oxyhemoglobin 89.5 L ABG Potassium ABG Chloride 108.0 H ABG Glucose 404 H Oxyhemoglobin Carboxyhemoglobin Sodium Potassium Chloride Carbon Dioxide BUN Creatinine Glucose POC Glucose 146 H 186 H Hemoglobin A1c Lactic Acid Calcium Phosphorus Magnesium Transferrin AST ALT Alkaline Phosphatase Total Creatine Kinase CK-MB (CK-2) Serum Total Protein Total Protein Albumin Pgvkz-9-Xstptpfzn Uvkou-3-Hcfjoinlc Gamma Globulins PEP Interpretation HDL Cholesterol TSH Arterial Blood Glucose 404 H Arterial Blood Ionized Calcium Urine WBC (Auto) Urine Creatinine Urine Total Protein Crossmatch 04/21/21 04/21/21 04/21/21 15:47 16:25 17:57 WBC RBC Hgb Hct MCH RDW Plt Count Seg Neuts % (Manual) Lymphocytes % (Manual) Nucleated RBC % Seg Neutrophils # Man Lymphocytes # (Manual) PT ABG pH 7.486 H POC ABG pCO2 POC ABG pO2 ABG pO2 168.1 H ABG O2 Saturation 99.1 H ABG Base Excess ABG Hemoglobin 8.9 L ABG Oxyhemoglobin ABG Potassium ABG Chloride ABG Glucose Oxyhemoglobin Carboxyhemoglobin Sodium Potassium Chloride Carbon Dioxide BUN Creatinine Glucose POC Glucose 172 H 143 H Hemoglobin A1c Lactic Acid Calcium Phosphorus Magnesium Transferrin AST ALT Alkaline Phosphatase Total Creatine Kinase CK-MB (CK-2) Serum Total Protein Total Protein Albumin Viszh-3-Uuseimnvb Dsnrz-8-Fqufxaiok Gamma Globulins PEP Interpretation HDL Cholesterol TSH Arterial Blood Glucose Arterial Blood Ionized Calcium Urine WBC (Auto) Urine Creatinine Urine Total Protein Crossmatch 04/21/21 04/21/21 04/21/21 18:49 19:10 20:26 WBC RBC Hgb Hct MCH RDW Plt Count Seg Neuts % (Manual) Lymphocytes % (Manual) Nucleated RBC % Seg Neutrophils # Man Lymphocytes # (Manual) PT ABG pH POC ABG pCO2 POC ABG pO2 ABG pO2 ABG O2 Saturation ABG Base Excess ABG Hemoglobin ABG Oxyhemoglobin ABG Potassium ABG Chloride ABG Glucose Oxyhemoglobin Carboxyhemoglobin Sodium 174 H* Potassium 7.2 H* D Chloride 138.2 H Carbon Dioxide 21 L BUN 99 H Creatinine 4.0 H Glucose 157 H POC Glucose 126 H 190 H Hemoglobin A1c Lactic Acid Calcium Phosphorus Magnesium Transferrin AST 134 H ALT 71 H Alkaline Phosphatase 135 H Total Creatine Kinase 3504 H CK-MB (CK-2) Serum Total Protein Total Protein Albumin 2.2 L Fteva-5-Nagzkijql Qfnot-6-Czuierrov Gamma Globulins PEP Interpretation HDL Cholesterol TSH Arterial Blood Glucose Arterial Blood Ionized Calcium Urine WBC (Auto) Urine Creatinine Urine Total Protein Crossmatch 04/21/21 04/21/21 04/21/21 20:53 21:52 22:55 WBC RBC Hgb Hct MCH RDW Plt Count Seg Neuts % (Manual) Lymphocytes % (Manual) Nucleated RBC % Seg Neutrophils # Man Lymphocytes # (Manual) PT ABG pH POC ABG pCO2 POC ABG pO2 ABG pO2 ABG O2 Saturation ABG Base Excess ABG Hemoglobin ABG Oxyhemoglobin ABG Potassium ABG Chloride ABG Glucose Oxyhemoglobin Carboxyhemoglobin Sodium Potassium Chloride Carbon Dioxide BUN Creatinine Glucose POC Glucose 116 H 135 H 158 H Hemoglobin A1c Lactic Acid Calcium Phosphorus Magnesium Transferrin AST ALT Alkaline Phosphatase Total Creatine Kinase CK-MB (CK-2) Serum Total Protein Total Protein Albumin Rnogc-6-Rinemuovh Lrtck-8-Eqsvzzsks Gamma Globulins PEP Interpretation HDL Cholesterol TSH Arterial Blood Glucose Arterial Blood Ionized Calcium Urine WBC (Auto) Urine Creatinine Urine Total Protein Crossmatch 04/21/21 04/22/21 04/22/21 23:00 00:01 00:39 WBC RBC Hgb Hct MCH RDW Plt Count Seg Neuts % (Manual) Lymphocytes % (Manual) Nucleated RBC % Seg Neutrophils # Man Lymphocytes # (Manual) PT ABG pH POC ABG pCO2 POC ABG pO2 ABG pO2 ABG O2 Saturation ABG Base Excess ABG Hemoglobin ABG Oxyhemoglobin ABG Potassium ABG Chloride ABG Glucose Oxyhemoglobin Carboxyhemoglobin Sodium 176 H* 171 H* Potassium Chloride 140.0 H Carbon Dioxide 20 L BUN 98 H Creatinine 3.9 H Glucose 206 H POC Glucose 182 H Hemoglobin A1c Lactic Acid Calcium Phosphorus Magnesium Transferrin AST ALT Alkaline Phosphatase Total Creatine Kinase 3240 H CK-MB (CK-2) Serum Total Protein Total Protein Albumin Qamae-7-Jylfpftjx Vrjez-7-Whxusvfrl Gamma Globulins PEP Interpretation HDL Cholesterol TSH Arterial Blood Glucose Arterial Blood Ionized Calcium Urine WBC (Auto) Urine Creatinine Urine Total Protein Crossmatch 04/22/21 04/22/21 04/22/21 00:58 01:04 04:52 WBC 11.2 H RBC Hgb Hct 44.3 H MCH 27 L RDW 17.1 H Plt Count 86 L Seg Neuts % (Manual) 86.0 H Lymphocytes % (Manual) 13.0 L Nucleated RBC % Seg Neutrophils # Man 9.6 H Lymphocytes # (Manual) PT ABG pH POC ABG pCO2 POC ABG pO2 ABG pO2 ABG O2 Saturation ABG Base Excess ABG Hemoglobin ABG Oxyhemoglobin ABG Potassium ABG Chloride ABG Glucose Oxyhemoglobin Carboxyhemoglobin Sodium Potassium Chloride Carbon Dioxide BUN Creatinine Glucose POC Glucose 176 H 143 H Hemoglobin A1c Lactic Acid Calcium Phosphorus Magnesium Transferrin AST ALT Alkaline Phosphatase Total Creatine Kinase CK-MB (CK-2) Serum Total Protein Total Protein Albumin Qygjm-1-Bqsghcdwi Iffkv-9-Bohuareax Gamma Globulins PEP Interpretation HDL Cholesterol TSH Arterial Blood Glucose Arterial Blood Ionized Calcium Urine WBC (Auto) Urine Creatinine Urine Total Protein Crossmatch 04/22/21 04/22/21 04/22/21 06:07 06:09 07:18 WBC RBC Hgb Hct MCH RDW Plt Count Seg Neuts % (Manual) Lymphocytes % (Manual) Nucleated RBC % Seg Neutrophils # Man Lymphocytes # (Manual) PT ABG pH POC ABG pCO2 POC ABG pO2 ABG pO2 ABG O2 Saturation ABG Base Excess ABG Hemoglobin ABG Oxyhemoglobin ABG Potassium ABG Chloride ABG Glucose Oxyhemoglobin Carboxyhemoglobin Sodium Potassium Chloride Carbon Dioxide BUN Creatinine Glucose POC Glucose 206 H 163 H 158 H Hemoglobin A1c Lactic Acid Calcium Phosphorus Magnesium Transferrin AST ALT Alkaline Phosphatase Total Creatine Kinase CK-MB (CK-2) Serum Total Protein Total Protein Albumin Xgrko-9-Kzqfvibbg Uefpy-1-Desjobogs Gamma Globulins PEP Interpretation HDL Cholesterol TSH Arterial Blood Glucose Arterial Blood Ionized Calcium Urine WBC (Auto) Urine Creatinine Urine Total Protein Crossmatch 04/22/21 04/22/21 04/22/21 08:59 08:59 08:59 WBC RBC Hgb Hct MCH RDW Plt Count Seg Neuts % (Manual) Lymphocytes % (Manual) Nucleated RBC % Seg Neutrophils # Man Lymphocytes # (Manual) PT ABG pH POC ABG pCO2 POC ABG pO2 ABG pO2 ABG O2 Saturation ABG Base Excess ABG Hemoglobin ABG Oxyhemoglobin ABG Potassium ABG Chloride ABG Glucose Oxyhemoglobin Carboxyhemoglobin Sodium 169 H* Potassium 3.5 L Chloride 134.5 H Carbon Dioxide 20 L BUN 95 H Creatinine 3.6 H Glucose 151 H POC Glucose Hemoglobin A1c Lactic Acid Calcium Phosphorus Magnesium Transferrin AST 121 H ALT 75 H Alkaline Phosphatase 137 H Total Creatine Kinase 3105 H CK-MB (CK-2) Serum Total Protein 5.5 L Total Protein 6.0 L Albumin 2.8 L 2.1 L Dbkhg-3-Ebydolvqo 0.6 H Kjkfn-1-Urjfzpnaw 1.0 H Gamma Globulins 0.6 L PEP Interpretation see below H HDL Cholesterol TSH Arterial Blood Glucose Arterial Blood Ionized Calcium Urine WBC (Auto) Urine Creatinine Urine Total Protein Crossmatch 04/22/21 04/22/21 04/22/21 09:44 10:24 12:20 WBC RBC Hgb Hct MCH RDW Plt Count Seg Neuts % (Manual) Lymphocytes % (Manual) Nucleated RBC % Seg Neutrophils # Man Lymphocytes # (Manual) PT ABG pH POC ABG pCO2 POC ABG pO2 ABG pO2 ABG O2 Saturation ABG Base Excess ABG Hemoglobin ABG Oxyhemoglobin ABG Potassium ABG Chloride ABG Glucose Oxyhemoglobin Carboxyhemoglobin Sodium Potassium Chloride Carbon Dioxide BUN Creatinine Glucose POC Glucose 107 H 131 H Hemoglobin A1c Lactic Acid Calcium Phosphorus Magnesium 2.80 H Transferrin AST ALT Alkaline Phosphatase Total Creatine Kinase CK-MB (CK-2) Serum Total Protein Total Protein Albumin Ncpez-2-Qotcibdvf Qmwqg-0-Pfwpstzch Gamma Globulins PEP Interpretation HDL Cholesterol TSH Arterial Blood Glucose Arterial Blood Ionized Calcium Urine WBC (Auto) Urine Creatinine Urine Total Protein Crossmatch 04/22/21 04/22/21 04/22/21 13:19 14:16 15:22 WBC RBC Hgb Hct MCH RDW Plt Count Seg Neuts % (Manual) Lymphocytes % (Manual) Nucleated RBC % Seg Neutrophils # Man Lymphocytes # (Manual) PT ABG pH POC ABG pCO2 POC ABG pO2 ABG pO2 ABG O2 Saturation ABG Base Excess ABG Hemoglobin ABG Oxyhemoglobin ABG Potassium ABG Chloride ABG Glucose Oxyhemoglobin Carboxyhemoglobin Sodium Potassium Chloride Carbon Dioxide BUN Creatinine Glucose POC Glucose 147 H 154 H 136 H Hemoglobin A1c Lactic Acid Calcium Phosphorus Magnesium Transferrin AST ALT Alkaline Phosphatase Total Creatine Kinase CK-MB (CK-2) Serum Total Protein Total Protein Albumin Fjgsm-6-Bwyqpgkcy Jusyo-6-Bqibublqe Gamma Globulins PEP Interpretation HDL Cholesterol TSH Arterial Blood Glucose Arterial Blood Ionized Calcium Urine WBC (Auto) Urine Creatinine Urine Total Protein Crossmatch 04/22/21 04/22/21 04/22/21 15:55 15:55 16:22 WBC RBC Hgb Hct MCH RDW Plt Count Seg Neuts % (Manual) Lymphocytes % (Manual) Nucleated RBC % Seg Neutrophils # Man Lymphocytes # (Manual) PT ABG pH POC ABG pCO2 POC ABG pO2 ABG pO2 ABG O2 Saturation ABG Base Excess ABG Hemoglobin ABG Oxyhemoglobin ABG Potassium ABG Chloride ABG Glucose Oxyhemoglobin Carboxyhemoglobin Sodium 169 H* Potassium Chloride 133.5 H Carbon Dioxide 19 L BUN 94 H Creatinine 3.8 H Glucose 150 H POC Glucose 140 H Hemoglobin A1c 17.1 H Lactic Acid Calcium Phosphorus Magnesium Transferrin AST ALT Alkaline Phosphatase Total Creatine Kinase CK-MB (CK-2) Serum Total Protein Total Protein Albumin Cizef-6-Wdziheikf Jshbd-9-Phjddptyg Gamma Globulins PEP Interpretation HDL Cholesterol TSH Arterial Blood Glucose Arterial Blood Ionized Calcium Urine WBC (Auto) Urine Creatinine Urine Total Protein Crossmatch 04/22/21 04/22/21 04/22/21 18:11 18:26 23:19 WBC RBC Hgb Hct MCH RDW Plt Count Seg Neuts % (Manual) Lymphocytes % (Manual) Nucleated RBC % Seg Neutrophils # Man Lymphocytes # (Manual) PT ABG pH POC ABG pCO2 POC ABG pO2 ABG pO2 ABG O2 Saturation ABG Base Excess ABG Hemoglobin ABG Oxyhemoglobin ABG Potassium ABG Chloride ABG Glucose Oxyhemoglobin Carboxyhemoglobin Sodium Potassium Chloride Carbon Dioxide BUN Creatinine Glucose POC Glucose 146 H 188 H Hemoglobin A1c Lactic Acid Calcium Phosphorus Magnesium Transferrin AST ALT Alkaline Phosphatase Total Creatine Kinase 2497 H CK-MB (CK-2) Serum Total Protein Total Protein Albumin Zhbyp-7-Tcodqfqat Ytspa-8-Pfpycbzlu Gamma Globulins PEP Interpretation HDL Cholesterol TSH Arterial Blood Glucose Arterial Blood Ionized Calcium Urine WBC (Auto) Urine Creatinine Urine Total Protein Crossmatch 04/23/21 04/23/21 04/23/21 00:27 05:23 07:50 WBC RBC Hgb Hct MCH RDW Plt Count Seg Neuts % (Manual) Lymphocytes % (Manual) Nucleated RBC % Seg Neutrophils # Man Lymphocytes # (Manual) PT ABG pH POC ABG pCO2 POC ABG pO2 ABG pO2 ABG O2 Saturation ABG Base Excess ABG Hemoglobin ABG Oxyhemoglobin ABG Potassium ABG Chloride ABG Glucose Oxyhemoglobin Carboxyhemoglobin Sodium 162 H* Potassium Chloride Carbon Dioxide BUN Creatinine Glucose POC Glucose 212 H 239 H Hemoglobin A1c Lactic Acid Calcium Phosphorus Magnesium Transferrin AST ALT Alkaline Phosphatase Total Creatine Kinase CK-MB (CK-2) Serum Total Protein Total Protein Albumin Cdywq-6-Ukvahfjpp Eujpa-8-Cfcqahuyx Gamma Globulins PEP Interpretation HDL Cholesterol TSH Arterial Blood Glucose Arterial Blood Ionized Calcium Urine WBC (Auto) Urine Creatinine Urine Total Protein Crossmatch 04/23/21 04/23/21 04/23/21 08:13 08:13 08:13 WBC 11.9 H RBC Hgb Hct MCH 26 L RDW 16.5 H Plt Count 72 L Seg Neuts % (Manual) 80.0 H Lymphocytes % (Manual) 5.0 L Nucleated RBC % Seg Neutrophils # Man 9.5 H Lymphocytes # (Manual) 0.6 L PT ABG pH POC ABG pCO2 POC ABG pO2 ABG pO2 ABG O2 Saturation ABG Base Excess ABG Hemoglobin ABG Oxyhemoglobin ABG Potassium ABG Chloride ABG Glucose Oxyhemoglobin Carboxyhemoglobin Sodium 164 H* Potassium Chloride 128.0 H Carbon Dioxide 21 L BUN 93 H Creatinine 3.8 H Glucose 293 H POC Glucose Hemoglobin A1c Lactic Acid Calcium Phosphorus Magnesium Transferrin AST 99 H ALT 70 H Alkaline Phosphatase 147 H Total Creatine Kinase 1803 H CK-MB (CK-2) Serum Total Protein Total Protein 6.1 L Albumin 2.0 L Lpudn-7-Yeuzevzkh Gkswy-4-Fglomurzp Gamma Globulins PEP Interpretation HDL Cholesterol TSH Arterial Blood Glucose Arterial Blood Ionized Calcium Urine WBC (Auto) Urine Creatinine Urine Total Protein Crossmatch 04/23/21 04/23/21 04/23/21 12:06 17:35 18:17 WBC RBC Hgb Hct MCH RDW Plt Count Seg Neuts % (Manual) Lymphocytes % (Manual) Nucleated RBC % Seg Neutrophils # Man Lymphocytes # (Manual) PT ABG pH POC ABG pCO2 POC ABG pO2 ABG pO2 ABG O2 Saturation ABG Base Excess ABG Hemoglobin ABG Oxyhemoglobin ABG Potassium ABG Chloride ABG Glucose Oxyhemoglobin Carboxyhemoglobin Sodium 160 H Potassium Chloride Carbon Dioxide BUN Creatinine Glucose POC Glucose 311 H 370 H Hemoglobin A1c Lactic Acid Calcium Phosphorus Magnesium Transferrin AST ALT Alkaline Phosphatase Total Creatine Kinase CK-MB (CK-2) Serum Total Protein Total Protein Albumin Iybpv-3-Gkmmexzds Lqnjf-5-Sivmiwjcj Gamma Globulins PEP Interpretation HDL Cholesterol TSH Arterial Blood Glucose Arterial Blood Ionized Calcium Urine WBC (Auto) Urine Creatinine Urine Total Protein Crossmatch 04/24/21 04/24/21 04/24/21 02:13 06:00 06:00 WBC RBC Hgb Hct MCH 27 L RDW 17.0 H Plt Count 58 L Seg Neuts % (Manual) Lymphocytes % (Manual) 2.0 L Nucleated RBC % Seg Neutrophils # Man 8.9 H Lymphocytes # (Manual) 0.2 L PT ABG pH POC ABG pCO2 POC ABG pO2 ABG pO2 ABG O2 Saturation ABG Base Excess ABG Hemoglobin ABG Oxyhemoglobin ABG Potassium ABG Chloride ABG Glucose Oxyhemoglobin Carboxyhemoglobin Sodium 160 H Potassium Chloride Carbon Dioxide BUN Creatinine Glucose POC Glucose Hemoglobin A1c Lactic Acid Calcium Phosphorus Magnesium 2.90 H Transferrin AST ALT Alkaline Phosphatase Total Creatine Kinase CK-MB (CK-2) Serum Total Protein Total Protein Albumin Conhb-5-Cetdgqnkt Mzayc-7-Zntbubypx Gamma Globulins PEP Interpretation HDL Cholesterol TSH Arterial Blood Glucose Arterial Blood Ionized Calcium Urine WBC (Auto) Urine Creatinine Urine Total Protein Crossmatch 04/24/21 04/24/21 04/24/21 07:46 08:15 11:34 WBC RBC Hgb Hct MCH RDW Plt Count Seg Neuts % (Manual) Lymphocytes % (Manual) Nucleated RBC % Seg Neutrophils # Man Lymphocytes # (Manual) PT ABG pH POC ABG pCO2 POC ABG pO2 ABG pO2 ABG O2 Saturation ABG Base Excess ABG Hemoglobin ABG Oxyhemoglobin ABG Potassium ABG Chloride ABG Glucose Oxyhemoglobin Carboxyhemoglobin Sodium 159 H Potassium Chloride 125.6 H Carbon Dioxide 19 L BUN 94 H Creatinine 3.7 H Glucose 514 H* POC Glucose 395 H 422 H Hemoglobin A1c Lactic Acid Calcium Phosphorus Magnesium Transferrin AST ALT 61 H Alkaline Phosphatase 155 H Total Creatine Kinase CK-MB (CK-2) Serum Total Protein Total Protein 6.1 L Albumin 1.5 L Lpsya-1-Xanshewzm Ogrhi-1-Zyadsoato Gamma Globulins PEP Interpretation HDL Cholesterol TSH Arterial Blood Glucose Arterial Blood Ionized Calcium Urine WBC (Auto) Urine Creatinine Urine Total Protein Crossmatch 04/24/21 04/24/21 04/24/21 13:11 14:01 15:03 WBC RBC Hgb Hct MCH RDW Plt Count Seg Neuts % (Manual) Lymphocytes % (Manual) Nucleated RBC % Seg Neutrophils # Man Lymphocytes # (Manual) PT ABG pH POC ABG pCO2 POC ABG pO2 ABG pO2 ABG O2 Saturation ABG Base Excess ABG Hemoglobin ABG Oxyhemoglobin ABG Potassium ABG Chloride ABG Glucose Oxyhemoglobin Carboxyhemoglobin Sodium Potassium Chloride Carbon Dioxide BUN Creatinine Glucose POC Glucose 384 H 423 H 418 H Hemoglobin A1c Lactic Acid Calcium Phosphorus Magnesium Transferrin AST ALT Alkaline Phosphatase Total Creatine Kinase CK-MB (CK-2) Serum Total Protein Total Protein Albumin Fhram-3-Ukdljyzrp Gjgtm-3-Bxfidbwxb Gamma Globulins PEP Interpretation HDL Cholesterol TSH Arterial Blood Glucose Arterial Blood Ionized Calcium Urine WBC (Auto) Urine Creatinine Urine Total Protein Crossmatch 04/24/21 04/24/21 04/24/21 17:29 18:28 19:41 WBC RBC Hgb Hct MCH RDW Plt Count Seg Neuts % (Manual) Lymphocytes % (Manual) Nucleated RBC % Seg Neutrophils # Man Lymphocytes # (Manual) PT ABG pH POC ABG pCO2 POC ABG pO2 ABG pO2 ABG O2 Saturation ABG Base Excess ABG Hemoglobin ABG Oxyhemoglobin ABG Potassium ABG Chloride ABG Glucose Oxyhemoglobin Carboxyhemoglobin Sodium Potassium Chloride Carbon Dioxide BUN Creatinine Glucose POC Glucose 335 H 321 H Hemoglobin A1c Lactic Acid Calcium Phosphorus Magnesium Transferrin 112 L AST ALT Alkaline Phosphatase Total Creatine Kinase CK-MB (CK-2) Serum Total Protein Total Protein Albumin Kofue-1-Wzhrurxpt Otjjn-2-Cugvazjpj Gamma Globulins PEP Interpretation HDL Cholesterol TSH Arterial Blood Glucose Arterial Blood Ionized Calcium Urine WBC (Auto) Urine Creatinine Urine Total Protein Crossmatch 04/24/21 04/25/21 04/25/21 22:33 01:28 02:28 WBC RBC Hgb Hct MCH RDW Plt Count Seg Neuts % (Manual) Lymphocytes % (Manual) Nucleated RBC % Seg Neutrophils # Man Lymphocytes # (Manual) PT ABG pH POC ABG pCO2 POC ABG pO2 ABG pO2 ABG O2 Saturation ABG Base Excess ABG Hemoglobin ABG Oxyhemoglobin ABG Potassium ABG Chloride ABG Glucose Oxyhemoglobin Carboxyhemoglobin Sodium Potassium Chloride Carbon Dioxide BUN Creatinine Glucose POC Glucose 349 H 283 H 247 H Hemoglobin A1c Lactic Acid Calcium Phosphorus Magnesium Transferrin AST ALT Alkaline Phosphatase Total Creatine Kinase CK-MB (CK-2) Serum Total Protein Total Protein Albumin Xykpy-0-Aynhzyajh Epcxs-1-Mrhrdraww Gamma Globulins PEP Interpretation HDL Cholesterol TSH Arterial Blood Glucose Arterial Blood Ionized Calcium Urine WBC (Auto) Urine Creatinine Urine Total Protein Crossmatch 04/25/21 04/25/21 04/25/21 03:25 04:22 05:40 WBC RBC Hgb Hct MCH RDW Plt Count Seg Neuts % (Manual) Lymphocytes % (Manual) Nucleated RBC % Seg Neutrophils # Man Lymphocytes # (Manual) PT ABG pH POC ABG pCO2 POC ABG pO2 ABG pO2 ABG O2 Saturation ABG Base Excess ABG Hemoglobin ABG Oxyhemoglobin ABG Potassium ABG Chloride ABG Glucose Oxyhemoglobin Carboxyhemoglobin Sodium Potassium Chloride Carbon Dioxide BUN Creatinine Glucose POC Glucose 196 H 207 H 204 H Hemoglobin A1c Lactic Acid Calcium Phosphorus Magnesium Transferrin AST ALT Alkaline Phosphatase Total Creatine Kinase CK-MB (CK-2) Serum Total Protein Total Protein Albumin Ximlr-5-Ppadowkpa Ipnpw-9-Njvcnghti Gamma Globulins PEP Interpretation HDL Cholesterol TSH Arterial Blood Glucose Arterial Blood Ionized Calcium Urine WBC (Auto) Urine Creatinine Urine Total Protein Crossmatch 04/25/21 04/25/21 04/25/21 05:45 06:43 07:37 WBC RBC Hgb Hct MCH 27 L RDW 17.0 H Plt Count 64 L Seg Neuts % (Manual) 84.0 H Lymphocytes % (Manual) 6.0 L Nucleated RBC % 1.0 H Seg Neutrophils # Man Lymphocytes # (Manual) 0.4 L PT ABG pH POC ABG pCO2 POC ABG pO2 ABG pO2 ABG O2 Saturation ABG Base Excess ABG Hemoglobin ABG Oxyhemoglobin ABG Potassium ABG Chloride ABG Glucose Oxyhemoglobin Carboxyhemoglobin Sodium Potassium Chloride Carbon Dioxide BUN Creatinine Glucose POC Glucose 238 H 201 H Hemoglobin A1c Lactic Acid Calcium Phosphorus Magnesium Transferrin AST ALT Alkaline Phosphatase Total Creatine Kinase CK-MB (CK-2) Serum Total Protein Total Protein Albumin Xsjps-8-Ttblhhcsp Ehzke-4-Mhlujhipv Gamma Globulins PEP Interpretation HDL Cholesterol TSH Arterial Blood Glucose Arterial Blood Ionized Calcium Urine WBC (Auto) Urine Creatinine Urine Total Protein Crossmatch 04/25/21 04/25/21 04/25/21 08:11 08:11 08:41 WBC RBC Hgb Hct MCH RDW Plt Count Seg Neuts % (Manual) Lymphocytes % (Manual) Nucleated RBC % Seg Neutrophils # Man Lymphocytes # (Manual) PT ABG pH POC ABG pCO2 POC ABG pO2 ABG pO2 ABG O2 Saturation ABG Base Excess ABG Hemoglobin ABG Oxyhemoglobin ABG Potassium ABG Chloride ABG Glucose Oxyhemoglobin Carboxyhemoglobin Sodium 148 H D Potassium Chloride 115.7 H Carbon Dioxide 21 L BUN 83 H Creatinine 3.6 H Glucose 247 H POC Glucose 220 H Hemoglobin A1c Lactic Acid Calcium Phosphorus Magnesium 2.50 H Transferrin AST 63 H ALT 62 H Alkaline Phosphatase 143 H Total Creatine Kinase CK-MB (CK-2) Serum Total Protein Total Protein 5.4 L Albumin 1.4 L Crcyf-0-Yccbimnvo Decih-0-Fhwrhvxqf Gamma Globulins PEP Interpretation HDL Cholesterol TSH Arterial Blood Glucose Arterial Blood Ionized Calcium Urine WBC (Auto) Urine Creatinine Urine Total Protein Crossmatch 04/25/21 04/25/21 04/25/21 09:22 10:31 11:44 WBC RBC Hgb Hct MCH RDW Plt Count Seg Neuts % (Manual) Lymphocytes % (Manual) Nucleated RBC % Seg Neutrophils # Man Lymphocytes # (Manual) PT ABG pH POC ABG pCO2 POC ABG pO2 ABG pO2 ABG O2 Saturation ABG Base Excess ABG Hemoglobin ABG Oxyhemoglobin ABG Potassium ABG Chloride ABG Glucose Oxyhemoglobin Carboxyhemoglobin Sodium Potassium Chloride Carbon Dioxide BUN Creatinine Glucose POC Glucose 228 H 215 H 191 H Hemoglobin A1c Lactic Acid Calcium Phosphorus Magnesium Transferrin AST ALT Alkaline Phosphatase Total Creatine Kinase CK-MB (CK-2) Serum Total Protein Total Protein Albumin Sytyu-4-Kvwscsjeb Gpmsh-6-Kvwjukdwv Gamma Globulins PEP Interpretation HDL Cholesterol TSH Arterial Blood Glucose Arterial Blood Ionized Calcium Urine WBC (Auto) Urine Creatinine Urine Total Protein Crossmatch 04/25/21 04/25/21 04/25/21 12:23 13:48 14:11 WBC RBC Hgb Hct MCH RDW Plt Count Seg Neuts % (Manual) Lymphocytes % (Manual) Nucleated RBC % Seg Neutrophils # Man Lymphocytes # (Manual) PT ABG pH POC ABG pCO2 POC ABG pO2 ABG pO2 ABG O2 Saturation ABG Base Excess ABG Hemoglobin ABG Oxyhemoglobin ABG Potassium ABG Chloride ABG Glucose Oxyhemoglobin Carboxyhemoglobin Sodium Potassium Chloride Carbon Dioxide BUN Creatinine Glucose POC Glucose 229 H 177 H 161 H Hemoglobin A1c Lactic Acid Calcium Phosphorus Magnesium Transferrin AST ALT Alkaline Phosphatase Total Creatine Kinase CK-MB (CK-2) Serum Total Protein Total Protein Albumin Tiozw-5-Qpwkluhwy Koovj-2-Glsnklidi Gamma Globulins PEP Interpretation HDL Cholesterol TSH Arterial Blood Glucose Arterial Blood Ionized Calcium Urine WBC (Auto) Urine Creatinine Urine Total Protein Crossmatch 04/25/21 04/25/21 04/26/21 18:01 21:31 01:19 WBC RBC Hgb Hct MCH RDW Plt Count Seg Neuts % (Manual) Lymphocytes % (Manual) Nucleated RBC % Seg Neutrophils # Man Lymphocytes # (Manual) PT ABG pH POC ABG pCO2 POC ABG pO2 ABG pO2 ABG O2 Saturation ABG Base Excess ABG Hemoglobin ABG Oxyhemoglobin ABG Potassium ABG Chloride ABG Glucose Oxyhemoglobin Carboxyhemoglobin Sodium Potassium Chloride Carbon Dioxide BUN Creatinine Glucose POC Glucose 264 H 371 H 356 H Hemoglobin A1c Lactic Acid Calcium Phosphorus Magnesium Transferrin AST ALT Alkaline Phosphatase Total Creatine Kinase CK-MB (CK-2) Serum Total Protein Total Protein Albumin Ymujj-4-Fetflqwwk Diexp-7-Swgafjvkr Gamma Globulins PEP Interpretation HDL Cholesterol TSH Arterial Blood Glucose Arterial Blood Ionized Calcium Urine WBC (Auto) Urine Creatinine Urine Total Protein Crossmatch 04/26/21 04/26/21 04/26/21 06:31 09:13 09:33 WBC RBC Hgb Hct MCH 27 L RDW 16.9 H Plt Count 58 L Seg Neuts % (Manual) 77.0 H Lymphocytes % (Manual) 4.0 L Nucleated RBC % 2.0 H Seg Neutrophils # Man Lymphocytes # (Manual) 0.3 L PT ABG pH POC ABG pCO2 POC ABG pO2 ABG pO2 ABG O2 Saturation ABG Base Excess ABG Hemoglobin ABG Oxyhemoglobin ABG Potassium ABG Chloride ABG Glucose Oxyhemoglobin Carboxyhemoglobin Sodium Potassium Chloride Carbon Dioxide BUN Creatinine Glucose POC Glucose 428 H 454 H Hemoglobin A1c Lactic Acid Calcium Phosphorus Magnesium Transferrin AST ALT Alkaline Phosphatase Total Creatine Kinase CK-MB (CK-2) Serum Total Protein Total Protein Albumin Pefrz-3-Lhgglvbge Skkui-2-Mwsmyxuqm Gamma Globulins PEP Interpretation HDL Cholesterol TSH Arterial Blood Glucose Arterial Blood Ionized Calcium Urine WBC (Auto) Urine Creatinine Urine Total Protein Crossmatch 04/26/21 04/26/21 04/26/21 09:33 09:33 11:00 WBC RBC Hgb Hct MCH RDW Plt Count Seg Neuts % (Manual) Lymphocytes % (Manual) Nucleated RBC % Seg Neutrophils # Man Lymphocytes # (Manual) PT ABG pH 7.281 L POC ABG pCO2 POC ABG pO2 66.4 L ABG pO2 ABG O2 Saturation ABG Base Excess ABG Hemoglobin 10.9 L ABG Oxyhemoglobin 91 L ABG Potassium ABG Chloride ABG Glucose 521 H Oxyhemoglobin Carboxyhemoglobin Sodium Potassium Chloride Carbon Dioxide 19 L BUN 98 H Creatinine 3.8 H Glucose 530 H* POC Glucose Hemoglobin A1c Lactic Acid Calcium 8.1 L Phosphorus 5.60 H D Magnesium Transferrin AST 60 H ALT 72 H Alkaline Phosphatase 168 H Total Creatine Kinase CK-MB (CK-2) Serum Total Protein Total Protein 4.6 L Albumin 1.7 L Wssra-5-Mgimxdwbr Ixmuc-6-Yevbnktdf Gamma Globulins PEP Interpretation HDL Cholesterol TSH Arterial Blood Glucose 521 H Arterial Blood Ionized Calcium Urine WBC (Auto) Urine Creatinine Urine Total Protein Crossmatch 04/26/21 04/26/21 04/26/21 12:36 15:39 16:18 WBC RBC Hgb Hct MCH RDW Plt Count Seg Neuts % (Manual) Lymphocytes % (Manual) Nucleated RBC % Seg Neutrophils # Man Lymphocytes # (Manual) PT ABG pH 7.275 L POC ABG pCO2 POC ABG pO2 63.4 L ABG pO2 ABG O2 Saturation ABG Base Excess ABG Hemoglobin 8.4 L ABG Oxyhemoglobin 89.5 L ABG Potassium ABG Chloride 108.0 H ABG Glucose 404 H Oxyhemoglobin Carboxyhemoglobin Sodium Potassium Chloride Carbon Dioxide BUN Creatinine Glucose POC Glucose 414 H 324 H Hemoglobin A1c Lactic Acid Calcium Phosphorus Magnesium Transferrin AST ALT Alkaline Phosphatase Total Creatine Kinase CK-MB (CK-2) Serum Total Protein Total Protein Albumin Pdfqu-5-Nintdsszf Tpqwi-2-Dxpqskapw Gamma Globulins PEP Interpretation HDL Cholesterol TSH Arterial Blood Glucose 404 H Arterial Blood Ionized Calcium Urine WBC (Auto) Urine Creatinine Urine Total Protein Crossmatch 04/26/21 04/27/21 04/27/21 21:14 00:07 05:47 WBC RBC Hgb Hct MCH RDW Plt Count Seg Neuts % (Manual) Lymphocytes % (Manual) Nucleated RBC % Seg Neutrophils # Man Lymphocytes # (Manual) PT ABG pH POC ABG pCO2 POC ABG pO2 ABG pO2 ABG O2 Saturation ABG Base Excess ABG Hemoglobin ABG Oxyhemoglobin ABG Potassium ABG Chloride ABG Glucose Oxyhemoglobin Carboxyhemoglobin Sodium Potassium Chloride Carbon Dioxide BUN Creatinine Glucose POC Glucose 242 H 282 H 214 H Hemoglobin A1c Lactic Acid Calcium Phosphorus Magnesium Transferrin AST ALT Alkaline Phosphatase Total Creatine Kinase CK-MB (CK-2) Serum Total Protein Total Protein Albumin Zzokq-8-Pnvnbznfl Kmtsj-8-Uijzoytib Gamma Globulins PEP Interpretation HDL Cholesterol TSH Arterial Blood Glucose Arterial Blood Ionized Calcium Urine WBC (Auto) Urine Creatinine Urine Total Protein Crossmatch 04/27/21 04/27/21 04/27/21 06:23 07:43 08:30 WBC RBC Hgb Hct MCH RDW Plt Count Seg Neuts % (Manual) Lymphocytes % (Manual) Nucleated RBC % Seg Neutrophils # Man Lymphocytes # (Manual) PT ABG pH 7.309 L POC ABG pCO2 POC ABG pO2 70.6 L ABG pO2 ABG O2 Saturation ABG Base Excess ABG Hemoglobin 9.16 L ABG Oxyhemoglobin 92.4 L ABG Potassium ABG Chloride ABG Glucose Oxyhemoglobin Carboxyhemoglobin Sodium Potassium Chloride 110.1 H Carbon Dioxide 15 L BUN 109 H Creatinine 4.3 H Glucose 218 H POC Glucose 187 H Hemoglobin A1c Lactic Acid Calcium Phosphorus Magnesium Transferrin AST 53 H ALT Alkaline Phosphatase 148 H Total Creatine Kinase 1000 H CK-MB (CK-2) Serum Total Protein Total Protein 5.2 L Albumin 1.2 L Zziqo-4-Gjrruwcmy Jcogm-6-Ijetfwspg Gamma Globulins PEP Interpretation HDL Cholesterol TSH Arterial Blood Glucose Arterial Blood Ionized Calcium Urine WBC (Auto) Urine Creatinine Urine Total Protein Crossmatch 04/27/21 04/27/21 04/27/21 11:54 21:08 23:28 WBC RBC Hgb Hct MCH RDW Plt Count Seg Neuts % (Manual) Lymphocytes % (Manual) Nucleated RBC % Seg Neutrophils # Man Lymphocytes # (Manual) PT ABG pH POC ABG pCO2 POC ABG pO2 ABG pO2 ABG O2 Saturation ABG Base Excess ABG Hemoglobin ABG Oxyhemoglobin ABG Potassium ABG Chloride ABG Glucose Oxyhemoglobin Carboxyhemoglobin Sodium Potassium Chloride Carbon Dioxide BUN Creatinine Glucose POC Glucose 147 H 136 H 201 H Hemoglobin A1c Lactic Acid Calcium Phosphorus Magnesium Transferrin AST ALT Alkaline Phosphatase Total Creatine Kinase CK-MB (CK-2) Serum Total Protein Total Protein Albumin Gpnns-5-Vamctdvys Ymqmx-0-Tpstosmms Gamma Globulins PEP Interpretation HDL Cholesterol TSH Arterial Blood Glucose Arterial Blood Ionized Calcium Urine WBC (Auto) Urine Creatinine Urine Total Protein Crossmatch 04/28/21 04/28/21 04/28/21 04:00 04:00 05:00 WBC 12.6 H RBC 3.59 L Hgb 9.4 L Hct MCH 26 L RDW 16.6 H Plt Count 111 L Seg Neuts % (Manual) Lymphocytes % (Manual) 1.0 L Nucleated RBC % 4.0 H Seg Neutrophils # Man 11.6 H Lymphocytes # (Manual) 0.1 L PT 15.3 H ABG pH POC ABG pCO2 POC ABG pO2 ABG pO2 ABG O2 Saturation ABG Base Excess ABG Hemoglobin ABG Oxyhemoglobin ABG Potassium ABG Chloride ABG Glucose Oxyhemoglobin Carboxyhemoglobin Sodium 147 H Potassium 3.5 L D Chloride Carbon Dioxide BUN 79 H Creatinine 3.8 H Glucose 194 H POC Glucose Hemoglobin A1c Lactic Acid Calcium 8.1 L Phosphorus Magnesium Transferrin AST ALT Alkaline Phosphatase Total Creatine Kinase CK-MB (CK-2) Serum Total Protein Total Protein Albumin Wcswy-2-Svxnnoaaz Nkyje-1-Ifjqojtlh Gamma Globulins PEP Interpretation HDL Cholesterol TSH Arterial Blood Glucose Arterial Blood Ionized Calcium Urine WBC (Auto) Urine Creatinine Urine Total Protein Crossmatch 04/28/21 04/28/21 04/28/21 05:08 05:18 11:04 WBC RBC Hgb Hct MCH RDW Plt Count Seg Neuts % (Manual) Lymphocytes % (Manual) Nucleated RBC % Seg Neutrophils # Man Lymphocytes # (Manual) PT ABG pH POC ABG pCO2 POC ABG pO2 66.5 L ABG pO2 ABG O2 Saturation ABG Base Excess ABG Hemoglobin 9.7 L ABG Oxyhemoglobin 92.5 L ABG Potassium 3.2 L ABG Chloride ABG Glucose 200 H Oxyhemoglobin Carboxyhemoglobin Sodium Potassium Chloride Carbon Dioxide BUN Creatinine Glucose POC Glucose 183 H 174 H Hemoglobin A1c Lactic Acid Calcium Phosphorus Magnesium Transferrin AST ALT Alkaline Phosphatase Total Creatine Kinase CK-MB (CK-2) Serum Total Protein Total Protein Albumin Iytyu-3-Zrumqpzde Qvpon-5-Bvsmjccon Gamma Globulins PEP Interpretation HDL Cholesterol TSH Arterial Blood Glucose 200 H Arterial Blood Ionized Calcium 4.5 L Urine WBC (Auto) Urine Creatinine Urine Total Protein Crossmatch 04/28/21 04/28/21 04/28/21 17:16 21:14 23:41 WBC RBC Hgb Hct MCH RDW Plt Count Seg Neuts % (Manual) Lymphocytes % (Manual) Nucleated RBC % Seg Neutrophils # Man Lymphocytes # (Manual) PT ABG pH POC ABG pCO2 POC ABG pO2 ABG pO2 ABG O2 Saturation ABG Base Excess ABG Hemoglobin ABG Oxyhemoglobin ABG Potassium ABG Chloride ABG Glucose Oxyhemoglobin Carboxyhemoglobin Sodium Potassium Chloride Carbon Dioxide BUN Creatinine Glucose POC Glucose 135 H 134 H 171 H Hemoglobin A1c Lactic Acid Calcium Phosphorus Magnesium Transferrin AST ALT Alkaline Phosphatase Total Creatine Kinase CK-MB (CK-2) Serum Total Protein Total Protein Albumin Wgkav-7-Shsrxscks Ajvwe-5-Iljbultaa Gamma Globulins PEP Interpretation HDL Cholesterol TSH Arterial Blood Glucose Arterial Blood Ionized Calcium Urine WBC (Auto) Urine Creatinine Urine Total Protein Crossmatch 04/29/21 04/29/21 04/29/21 01:16 04:00 04:00 WBC 13.3 H RBC 3.12 L Hgb 8.3 L Hct 26.2 L MCH 27 L RDW 16.3 H Plt Count 132 L Seg Neuts % (Manual) Lymphocytes % (Manual) Nucleated RBC % Seg Neutrophils # Man Lymphocytes # (Manual) PT ABG pH POC ABG pCO2 POC ABG pO2 ABG pO2 ABG O2 Saturation ABG Base Excess ABG Hemoglobin ABG Oxyhemoglobin ABG Potassium ABG Chloride ABG Glucose Oxyhemoglobin Carboxyhemoglobin Sodium Potassium Chloride Carbon Dioxide BUN 63 H Creatinine 3.4 H Glucose 249 H POC Glucose 236 H Hemoglobin A1c Lactic Acid Calcium 8.2 L Phosphorus Magnesium Transferrin AST 61 H ALT 71 H Alkaline Phosphatase 170 H Total Creatine Kinase CK-MB (CK-2) Serum Total Protein Total Protein 5.1 L Albumin 1.6 L Qgypv-2-Enfnxvids Ekikh-6-Tsjtqttjl Gamma Globulins PEP Interpretation HDL Cholesterol TSH Arterial Blood Glucose Arterial Blood Ionized Calcium Urine WBC (Auto) Urine Creatinine Urine Total Protein Crossmatch 04/29/21 04/29/21 04/29/21 11:35 13:30 16:01 WBC RBC Hgb Hct MCH RDW Plt Count Seg Neuts % (Manual) Lymphocytes % (Manual) Nucleated RBC % Seg Neutrophils # Man Lymphocytes # (Manual) PT ABG pH POC ABG pCO2 POC ABG pO2 ABG pO2 ABG O2 Saturation ABG Base Excess ABG Hemoglobin ABG Oxyhemoglobin ABG Potassium ABG Chloride ABG Glucose Oxyhemoglobin Carboxyhemoglobin Sodium Potassium Chloride Carbon Dioxide BUN Creatinine Glucose POC Glucose 320 H 297 H Hemoglobin A1c Lactic Acid Calcium Phosphorus Magnesium Transferrin AST ALT Alkaline Phosphatase Total Creatine Kinase CK-MB (CK-2) Serum Total Protein Total Protein Albumin Rqclc-2-Cfpqsjjpd Vhafq-6-Cmvdmaktz Gamma Globulins PEP Interpretation HDL Cholesterol TSH Arterial Blood Glucose Arterial Blood Ionized Calcium Urine WBC (Auto) > 182.0 H Urine Creatinine Urine Total Protein Crossmatch 04/29/21 04/29/21 04/30/21 21:58 23:35 04:00 WBC 11.4 H RBC 3.27 L Hgb 8.7 L Hct 27.5 L MCH 27 L RDW 16.6 H Plt Count Seg Neuts % (Manual) Lymphocytes % (Manual) Nucleated RBC % Seg Neutrophils # Man Lymphocytes # (Manual) PT ABG pH POC ABG pCO2 POC ABG pO2 ABG pO2 ABG O2 Saturation ABG Base Excess ABG Hemoglobin ABG Oxyhemoglobin ABG Potassium ABG Chloride ABG Glucose Oxyhemoglobin Carboxyhemoglobin Sodium Potassium Chloride Carbon Dioxide BUN Creatinine Glucose POC Glucose 260 H 254 H Hemoglobin A1c Lactic Acid Calcium Phosphorus Magnesium Transferrin AST ALT Alkaline Phosphatase Total Creatine Kinase CK-MB (CK-2) Serum Total Protein Total Protein Albumin Eaiwh-6-Mhqgsqezi Edqoi-5-Abchsvvde Gamma Globulins PEP Interpretation HDL Cholesterol TSH Arterial Blood Glucose Arterial Blood Ionized Calcium Urine WBC (Auto) Urine Creatinine Urine Total Protein Crossmatch 04/30/21 04/30/21 04/30/21 04:00 05:17 05:31 WBC RBC Hgb Hct MCH RDW Plt Count Seg Neuts % (Manual) Lymphocytes % (Manual) Nucleated RBC % Seg Neutrophils # Man Lymphocytes # (Manual) PT ABG pH 7.452 H POC ABG pCO2 30.5 L POC ABG pO2 54.5 L ABG pO2 ABG O2 Saturation ABG Base Excess ABG Hemoglobin 10.1 L ABG Oxyhemoglobin 87.4 L ABG Potassium 2.9 L ABG Chloride ABG Glucose 305 H Oxyhemoglobin Carboxyhemoglobin Sodium Potassium 3.1 L Chloride Carbon Dioxide BUN 79 H Creatinine 3.9 H Glucose 275 H POC Glucose 267 H Hemoglobin A1c Lactic Acid Calcium Phosphorus 5.60 H D Magnesium Transferrin AST ALT Alkaline Phosphatase Total Creatine Kinase CK-MB (CK-2) Serum Total Protein Total Protein Albumin Qugbj-1-Uiyrpdfzc Opjdo-2-Qibdabvpw Gamma Globulins PEP Interpretation HDL Cholesterol TSH Arterial Blood Glucose 305 H Arterial Blood Ionized Calcium Urine WBC (Auto) Urine Creatinine Urine Total Protein Crossmatch 04/30/21 04/30/21 04/30/21 12:31 17:50 22:24 WBC RBC Hgb Hct MCH RDW Plt Count Seg Neuts % (Manual) Lymphocytes % (Manual) Nucleated RBC % Seg Neutrophils # Man Lymphocytes # (Manual) PT ABG pH POC ABG pCO2 POC ABG pO2 ABG pO2 ABG O2 Saturation ABG Base Excess ABG Hemoglobin ABG Oxyhemoglobin ABG Potassium ABG Chloride ABG Glucose Oxyhemoglobin Carboxyhemoglobin Sodium Potassium Chloride Carbon Dioxide BUN Creatinine Glucose POC Glucose 259 H 161 H 146 H Hemoglobin A1c Lactic Acid Calcium Phosphorus Magnesium Transferrin AST ALT Alkaline Phosphatase Total Creatine Kinase CK-MB (CK-2) Serum Total Protein Total Protein Albumin Tldya-3-Jfznlaclq Iwftc-9-Qmfehlqex Gamma Globulins PEP Interpretation HDL Cholesterol TSH Arterial Blood Glucose Arterial Blood Ionized Calcium Urine WBC (Auto) Urine Creatinine Urine Total Protein Crossmatch 05/01/21 05/01/21 05/01/21 00:09 03:30 04:00 WBC 12.0 H RBC 3.08 L Hgb 8.1 L Hct 25.6 L MCH 26 L RDW 16.3 H Plt Count Seg Neuts % (Manual) Lymphocytes % (Manual) Nucleated RBC % Seg Neutrophils # Man Lymphocytes # (Manual) PT ABG pH 7.493 H POC ABG pCO2 POC ABG pO2 ABG pO2 ABG O2 Saturation ABG Base Excess ABG Hemoglobin 9.3 L ABG Oxyhemoglobin ABG Potassium ABG Chloride ABG Glucose 167 H Oxyhemoglobin Carboxyhemoglobin 0.4 L Sodium Potassium Chloride Carbon Dioxide BUN Creatinine Glucose POC Glucose 149 H Hemoglobin A1c Lactic Acid Calcium Phosphorus Magnesium Transferrin AST ALT Alkaline Phosphatase Total Creatine Kinase CK-MB (CK-2) Serum Total Protein Total Protein Albumin Ahiki-9-Obpmdsfnk Sxclg-2-Ceutidtog Gamma Globulins PEP Interpretation HDL Cholesterol TSH Arterial Blood Glucose 167 H Arterial Blood Ionized Calcium Urine WBC (Auto) Urine Creatinine Urine Total Protein Crossmatch 05/01/21 05/01/21 05/01/21 04:00 05:48 11:49 WBC RBC Hgb Hct MCH RDW Plt Count Seg Neuts % (Manual) Lymphocytes % (Manual) Nucleated RBC % Seg Neutrophils # Man Lymphocytes # (Manual) PT ABG pH POC ABG pCO2 POC ABG pO2 ABG pO2 ABG O2 Saturation ABG Base Excess ABG Hemoglobin ABG Oxyhemoglobin ABG Potassium ABG Chloride ABG Glucose Oxyhemoglobin Carboxyhemoglobin Sodium Potassium 3.5 L Chloride Carbon Dioxide BUN 62 H Creatinine 3.3 H Glucose 179 H POC Glucose 197 H 167 H Hemoglobin A1c Lactic Acid Calcium 8.3 L Phosphorus Magnesium Transferrin AST ALT Alkaline Phosphatase Total Creatine Kinase CK-MB (CK-2) Serum Total Protein Total Protein Albumin Zqqio-4-Ijudgzjbr Gjwtc-5-Wkcnrxpgv Gamma Globulins PEP Interpretation HDL Cholesterol TSH Arterial Blood Glucose Arterial Blood Ionized Calcium Urine WBC (Auto) Urine Creatinine Urine Total Protein Crossmatch 05/01/21 05/01/21 05/02/21 16:24 23:25 04:00 WBC 14.2 H RBC 2.61 L Hgb 6.9 L Hct 22.1 L MCH 27 L RDW 16.1 H Plt Count Seg Neuts % (Manual) Lymphocytes % (Manual) Nucleated RBC % Seg Neutrophils # Man Lymphocytes # (Manual) PT ABG pH POC ABG pCO2 POC ABG pO2 ABG pO2 ABG O2 Saturation ABG Base Excess ABG Hemoglobin ABG Oxyhemoglobin ABG Potassium ABG Chloride ABG Glucose Oxyhemoglobin Carboxyhemoglobin Sodium Potassium Chloride Carbon Dioxide BUN Creatinine Glucose POC Glucose 157 H 147 H Hemoglobin A1c Lactic Acid Calcium Phosphorus Magnesium Transferrin AST ALT Alkaline Phosphatase Total Creatine Kinase CK-MB (CK-2) Serum Total Protein Total Protein Albumin Bnkoh-4-Fpevkdxdu Twvho-9-Pgereardp Gamma Globulins PEP Interpretation HDL Cholesterol TSH Arterial Blood Glucose Arterial Blood Ionized Calcium Urine WBC (Auto) Urine Creatinine Urine Total Protein Crossmatch 05/02/21 05/02/21 05/02/21 04:00 04:34 05:23 WBC RBC Hgb Hct MCH RDW Plt Count Seg Neuts % (Manual) Lymphocytes % (Manual) Nucleated RBC % Seg Neutrophils # Man Lymphocytes # (Manual) PT ABG pH 7.487 H POC ABG pCO2 POC ABG pO2 78.6 L ABG pO2 ABG O2 Saturation ABG Base Excess ABG Hemoglobin 11.5 L ABG Oxyhemoglobin ABG Potassium ABG Chloride ABG Glucose 122 H Oxyhemoglobin Carboxyhemoglobin Sodium Potassium Chloride Carbon Dioxide BUN 49 H Creatinine 2.8 H Glucose 117 H POC Glucose 119 H Hemoglobin A1c Lactic Acid Calcium Phosphorus Magnesium Transferrin AST ALT Alkaline Phosphatase Total Creatine Kinase CK-MB (CK-2) Serum Total Protein Total Protein Albumin Aksyi-1-Vikhlgbbu Lcijx-4-Msoqhgprm Gamma Globulins PEP Interpretation HDL Cholesterol TSH Arterial Blood Glucose 122 H Arterial Blood Ionized Calcium Urine WBC (Auto) Urine Creatinine Urine Total Protein Crossmatch 05/02/21 05/02/21 05/02/21 12:00 12:04 17:29 WBC RBC Hgb Hct MCH RDW Plt Count Seg Neuts % (Manual) Lymphocytes % (Manual) Nucleated RBC % Seg Neutrophils # Man Lymphocytes # (Manual) PT ABG pH POC ABG pCO2 POC ABG pO2 ABG pO2 ABG O2 Saturation ABG Base Excess ABG Hemoglobin ABG Oxyhemoglobin ABG Potassium ABG Chloride ABG Glucose Oxyhemoglobin Carboxyhemoglobin Sodium Potassium Chloride Carbon Dioxide BUN Creatinine Glucose POC Glucose 115 H 120 H Hemoglobin A1c Lactic Acid Calcium Phosphorus Magnesium Transferrin AST ALT Alkaline Phosphatase Total Creatine Kinase CK-MB (CK-2) Serum Total Protein Total Protein Albumin Gndbd-6-Hfjwewuue Nltpo-3-Vzpjezatz Gamma Globulins PEP Interpretation HDL Cholesterol TSH Arterial Blood Glucose Arterial Blood Ionized Calcium Urine WBC (Auto) Urine Creatinine Urine Total Protein Crossmatch See Detail 05/02/21 05/03/21 05/03/21 23:36 04:00 04:00 WBC 13.9 H RBC 3.22 L Hgb 8.7 L Hct 27.4 L MCH 27 L RDW 15.8 H Plt Count Seg Neuts % (Manual) Lymphocytes % (Manual) Nucleated RBC % Seg Neutrophils # Man Lymphocytes # (Manual) PT ABG pH POC ABG pCO2 POC ABG pO2 ABG pO2 ABG O2 Saturation ABG Base Excess ABG Hemoglobin ABG Oxyhemoglobin ABG Potassium ABG Chloride ABG Glucose Oxyhemoglobin Carboxyhemoglobin Sodium 146 H Potassium 3.5 L Chloride 107.5 H Carbon Dioxide BUN 40 H Creatinine 2.5 H Glucose 104 H POC Glucose 130 H Hemoglobin A1c Lactic Acid Calcium Phosphorus Magnesium Transferrin AST 53 H ALT Alkaline Phosphatase 149 H Total Creatine Kinase CK-MB (CK-2) Serum Total Protein Total Protein 5.2 L Albumin 1.5 L Fazou-6-Fcngnruso Xjvpo-2-Uzmwzmuza Gamma Globulins PEP Interpretation HDL Cholesterol TSH Arterial Blood Glucose Arterial Blood Ionized Calcium Urine WBC (Auto) Urine Creatinine Urine Total Protein Crossmatch 05/03/21 05/04/21 05/04/21 17:26 01:24 04:48 WBC 14.3 H RBC 3.14 L Hgb 8.5 L Hct 26.3 L MCH 27 L RDW 15.8 H Plt Count Seg Neuts % (Manual) Lymphocytes % (Manual) Nucleated RBC % Seg Neutrophils # Man Lymphocytes # (Manual) PT ABG pH POC ABG pCO2 POC ABG pO2 ABG pO2 ABG O2 Saturation ABG Base Excess ABG Hemoglobin ABG Oxyhemoglobin ABG Potassium ABG Chloride ABG Glucose Oxyhemoglobin Carboxyhemoglobin Sodium Potassium Chloride Carbon Dioxide BUN Creatinine Glucose POC Glucose 123 H 146 H Hemoglobin A1c Lactic Acid Calcium Phosphorus Magnesium Transferrin AST ALT Alkaline Phosphatase Total Creatine Kinase CK-MB (CK-2) Serum Total Protein Total Protein Albumin Qbggg-0-Cagzvzgns Rhkhx-6-Ppzbnknwe Gamma Globulins PEP Interpretation HDL Cholesterol TSH Arterial Blood Glucose Arterial Blood Ionized Calcium Urine WBC (Auto) Urine Creatinine Urine Total Protein Crossmatch 05/04/21 05/04/21 05/04/21 04:48 05:15 11:24 WBC RBC Hgb Hct MCH RDW Plt Count Seg Neuts % (Manual) Lymphocytes % (Manual) Nucleated RBC % Seg Neutrophils # Man Lymphocytes # (Manual) PT ABG pH POC ABG pCO2 POC ABG pO2 ABG pO2 ABG O2 Saturation ABG Base Excess ABG Hemoglobin ABG Oxyhemoglobin ABG Potassium ABG Chloride ABG Glucose Oxyhemoglobin Carboxyhemoglobin Sodium Potassium 3.5 L Chloride Carbon Dioxide BUN 58 H Creatinine 3.4 H Glucose 168 H POC Glucose 162 H 145 H Hemoglobin A1c Lactic Acid Calcium Phosphorus 5.30 H Magnesium Transferrin AST ALT Alkaline Phosphatase Total Creatine Kinase CK-MB (CK-2) Serum Total Protein Total Protein Albumin Suvag-6-Ouaiecobl Bxhho-6-Ittzdnuze Gamma Globulins PEP Interpretation HDL Cholesterol 24 L TSH Arterial Blood Glucose Arterial Blood Ionized Calcium Urine WBC (Auto) Urine Creatinine Urine Total Protein Crossmatch 05/04/21 05/04/21 05/05/21 16:01 23:32 04:00 WBC RBC Hgb Hct MCH RDW Plt Count Seg Neuts % (Manual) Lymphocytes % (Manual) Nucleated RBC % Seg Neutrophils # Man Lymphocytes # (Manual) PT ABG pH POC ABG pCO2 POC ABG pO2 ABG pO2 ABG O2 Saturation ABG Base Excess ABG Hemoglobin ABG Oxyhemoglobin ABG Potassium ABG Chloride ABG Glucose Oxyhemoglobin Carboxyhemoglobin Sodium Potassium 3.4 L Chloride Carbon Dioxide BUN 43 H Creatinine 2.7 H Glucose 124 H POC Glucose 148 H 134 H Hemoglobin A1c Lactic Acid Calcium 8.2 L Phosphorus Magnesium Transferrin AST ALT Alkaline Phosphatase Total Creatine Kinase CK-MB (CK-2) Serum Total Protein Total Protein Albumin Wryfz-1-Ycelhaxiy Xxvlx-4-Xtfuluwfg Gamma Globulins PEP Interpretation HDL Cholesterol TSH Arterial Blood Glucose Arterial Blood Ionized Calcium Urine WBC (Auto) Urine Creatinine Urine Total Protein Crossmatch 05/05/21 05/06/21 05/06/21 05:14 00:01 04:00 WBC RBC Hgb Hct MCH RDW Plt Count Seg Neuts % (Manual) Lymphocytes % (Manual) Nucleated RBC % Seg Neutrophils # Man Lymphocytes # (Manual) PT ABG pH POC ABG pCO2 POC ABG pO2 ABG pO2 ABG O2 Saturation ABG Base Excess ABG Hemoglobin ABG Oxyhemoglobin ABG Potassium ABG Chloride ABG Glucose Oxyhemoglobin Carboxyhemoglobin Sodium Potassium 3.2 L Chloride Carbon Dioxide BUN 56 H Creatinine 3.0 H Glucose 110 H POC Glucose 120 H 120 H Hemoglobin A1c Lactic Acid Calcium 7.8 L Phosphorus 4.60 H Magnesium Transferrin AST ALT Alkaline Phosphatase Total Creatine Kinase CK-MB (CK-2) Serum Total Protein Total Protein Albumin Bzepk-7-Ounxmcblh Fouxy-3-Oukfoldnu Gamma Globulins PEP Interpretation HDL Cholesterol TSH Arterial Blood Glucose Arterial Blood Ionized Calcium Urine WBC (Auto) Urine Creatinine Urine Total Protein Crossmatch 05/06/21 05/06/21 05/06/21 04:27 05:15 17:37 WBC RBC 3.03 L Hgb 8.3 L Hct 25.4 L MCH 27 L RDW Plt Count Seg Neuts % (Manual) Lymphocytes % (Manual) Nucleated RBC % Seg Neutrophils # Man Lymphocytes # (Manual) PT ABG pH POC ABG pCO2 POC ABG pO2 ABG pO2 ABG O2 Saturation ABG Base Excess ABG Hemoglobin ABG Oxyhemoglobin ABG Potassium ABG Chloride ABG Glucose Oxyhemoglobin Carboxyhemoglobin Sodium Potassium Chloride Carbon Dioxide BUN Creatinine Glucose POC Glucose 137 H 132 H Hemoglobin A1c Lactic Acid Calcium Phosphorus Magnesium Transferrin AST ALT Alkaline Phosphatase Total Creatine Kinase CK-MB (CK-2) Serum Total Protein Total Protein Albumin Xbtaf-8-Nnisohewg Fupvk-1-Memfwbagp Gamma Globulins PEP Interpretation HDL Cholesterol TSH Arterial Blood Glucose Arterial Blood Ionized Calcium Urine WBC (Auto) Urine Creatinine Urine Total Protein Crossmatch 05/07/21 05/07/21 05/07/21 00:30 04:23 04:23 WBC RBC Hgb Hct MCH RDW Plt Count Seg Neuts % (Manual) Lymphocytes % (Manual) Nucleated RBC % Seg Neutrophils # Man Lymphocytes # (Manual) PT ABG pH POC ABG pCO2 POC ABG pO2 ABG pO2 ABG O2 Saturation ABG Base Excess ABG Hemoglobin ABG Oxyhemoglobin ABG Potassium ABG Chloride ABG Glucose Oxyhemoglobin Carboxyhemoglobin Sodium Potassium 3.4 L Chloride 107.1 H Carbon Dioxide BUN 28 H Creatinine 1.9 H Glucose 165 H POC Glucose 121 H Hemoglobin A1c Lactic Acid Calcium 8.2 L Phosphorus Magnesium 1.60 L Transferrin AST ALT Alkaline Phosphatase Total Creatine Kinase CK-MB (CK-2) Serum Total Protein Total Protein Albumin Doriv-0-Vkurerwtw Fwqby-7-Hoznrtjto Gamma Globulins PEP Interpretation HDL Cholesterol TSH Arterial Blood Glucose Arterial Blood Ionized Calcium Urine WBC (Auto) Urine Creatinine Urine Total Protein Crossmatch 05/07/21 05/07/21 05/07/21 05:30 11:37 17:28 WBC RBC Hgb Hct MCH RDW Plt Count Seg Neuts % (Manual) Lymphocytes % (Manual) Nucleated RBC % Seg Neutrophils # Man Lymphocytes # (Manual) PT ABG pH POC ABG pCO2 POC ABG pO2 ABG pO2 ABG O2 Saturation ABG Base Excess ABG Hemoglobin ABG Oxyhemoglobin ABG Potassium ABG Chloride ABG Glucose Oxyhemoglobin Carboxyhemoglobin Sodium Potassium Chloride Carbon Dioxide BUN Creatinine Glucose POC Glucose 205 H 148 H 170 H Hemoglobin A1c Lactic Acid Calcium Phosphorus Magnesium Transferrin AST ALT Alkaline Phosphatase Total Creatine Kinase CK-MB (CK-2) Serum Total Protein Total Protein Albumin Zzmgh-0-Eqhvaeufq Dhfpg-4-Kmihpevdz Gamma Globulins PEP Interpretation HDL Cholesterol TSH Arterial Blood Glucose Arterial Blood Ionized Calcium Urine WBC (Auto) Urine Creatinine Urine Total Protein Crossmatch 05/07/21 05/08/21 05/08/21 23:57 05:12 05:12 WBC 11.2 H RBC 3.01 L Hgb 8.2 L Hct 25.5 L MCH 27 L RDW 15.4 H Plt Count Seg Neuts % (Manual) Lymphocytes % (Manual) Nucleated RBC % Seg Neutrophils # Man Lymphocytes # (Manual) PT ABG pH POC ABG pCO2 POC ABG pO2 ABG pO2 ABG O2 Saturation ABG Base Excess ABG Hemoglobin ABG Oxyhemoglobin ABG Potassium ABG Chloride ABG Glucose Oxyhemoglobin Carboxyhemoglobin Sodium Potassium 3.4 L Chloride Carbon Dioxide BUN 37 H Creatinine 2.1 H Glucose 160 H POC Glucose 172 H Hemoglobin A1c Lactic Acid Calcium 8.3 L Phosphorus Magnesium Transferrin AST ALT Alkaline Phosphatase Total Creatine Kinase CK-MB (CK-2) Serum Total Protein Total Protein Albumin Htowg-8-Umnfeebbp Gezbl-7-Tdtxecplc Gamma Globulins PEP Interpretation HDL Cholesterol TSH Arterial Blood Glucose Arterial Blood Ionized Calcium Urine WBC (Auto) Urine Creatinine Urine Total Protein Crossmatch 05/08/21 05/08/21 05/08/21 05:20 09:34 11:35 WBC RBC Hgb Hct MCH RDW Plt Count Seg Neuts % (Manual) Lymphocytes % (Manual) Nucleated RBC % Seg Neutrophils # Man Lymphocytes # (Manual) PT ABG pH POC ABG pCO2 POC ABG pO2 ABG pO2 ABG O2 Saturation ABG Base Excess ABG Hemoglobin ABG Oxyhemoglobin ABG Potassium ABG Chloride ABG Glucose Oxyhemoglobin Carboxyhemoglobin Sodium Potassium Chloride Carbon Dioxide BUN Creatinine Glucose POC Glucose 148 H 208 H Hemoglobin A1c Lactic Acid Calcium Phosphorus Magnesium Transferrin AST ALT Alkaline Phosphatase Total Creatine Kinase CK-MB (CK-2) Serum Total Protein Total Protein Albumin Lfpib-7-Evspcurpx Sijaq-6-Fiwritdmd Gamma Globulins PEP Interpretation HDL Cholesterol TSH Arterial Blood Glucose Arterial Blood Ionized Calcium Urine WBC (Auto) Urine Creatinine 56.0 H Urine Total Protein Crossmatch 05/08/21 05/08/21 05/09/21 16:55 23:57 05:30 WBC 12.8 H RBC 2.98 L Hgb 8.1 L Hct 25.4 L MCH 27 L RDW 15.4 H Plt Count Seg Neuts % (Manual) Lymphocytes % (Manual) Nucleated RBC % Seg Neutrophils # Man Lymphocytes # (Manual) PT ABG pH POC ABG pCO2 POC ABG pO2 ABG pO2 ABG O2 Saturation ABG Base Excess ABG Hemoglobin ABG Oxyhemoglobin ABG Potassium ABG Chloride ABG Glucose Oxyhemoglobin Carboxyhemoglobin Sodium Potassium Chloride Carbon Dioxide BUN Creatinine Glucose POC Glucose 179 H 183 H Hemoglobin A1c Lactic Acid Calcium Phosphorus Magnesium Transferrin AST ALT Alkaline Phosphatase Total Creatine Kinase CK-MB (CK-2) Serum Total Protein Total Protein Albumin Vptkp-1-Qjzpcxjgy Purtr-2-Jopefcnvi Gamma Globulins PEP Interpretation HDL Cholesterol TSH Arterial Blood Glucose Arterial Blood Ionized Calcium Urine WBC (Auto) Urine Creatinine Urine Total Protein Crossmatch 05/09/21 05/09/21 05/09/21 05:30 05:31 11:24 WBC RBC Hgb Hct MCH RDW Plt Count Seg Neuts % (Manual) Lymphocytes % (Manual) Nucleated RBC % Seg Neutrophils # Man Lymphocytes # (Manual) PT ABG pH POC ABG pCO2 POC ABG pO2 ABG pO2 ABG O2 Saturation ABG Base Excess ABG Hemoglobin ABG Oxyhemoglobin ABG Potassium ABG Chloride ABG Glucose Oxyhemoglobin Carboxyhemoglobin Sodium 150 H Potassium 3.2 L Chloride 110.2 H Carbon Dioxide BUN 37 H Creatinine 1.8 H Glucose 191 H POC Glucose 120 H 197 H Hemoglobin A1c Lactic Acid Calcium Phosphorus Magnesium Transferrin AST ALT Alkaline Phosphatase Total Creatine Kinase CK-MB (CK-2) Serum Total Protein Total Protein Albumin Nqwmy-3-Ewtdgahop Igxtz-0-Luptubroc Gamma Globulins PEP Interpretation HDL Cholesterol TSH Arterial Blood Glucose Arterial Blood Ionized Calcium Urine WBC (Auto) Urine Creatinine Urine Total Protein Crossmatch 05/09/21 05/09/21 05/10/21 15:49 23:42 05:00 WBC RBC 2.99 L Hgb 8.2 L Hct 25.6 L MCH RDW 15.4 H Plt Count 456 H Seg Neuts % (Manual) Lymphocytes % (Manual) Nucleated RBC % Seg Neutrophils # Man Lymphocytes # (Manual) PT ABG pH POC ABG pCO2 POC ABG pO2 ABG pO2 ABG O2 Saturation ABG Base Excess ABG Hemoglobin ABG Oxyhemoglobin ABG Potassium ABG Chloride ABG Glucose Oxyhemoglobin Carboxyhemoglobin Sodium Potassium Chloride Carbon Dioxide BUN Creatinine Glucose POC Glucose 318 H 152 H Hemoglobin A1c Lactic Acid Calcium Phosphorus Magnesium Transferrin AST ALT Alkaline Phosphatase Total Creatine Kinase CK-MB (CK-2) Serum Total Protein Total Protein Albumin Zcojn-4-Wimwvcxlx Emtje-2-Uthvbvdjd Gamma Globulins PEP Interpretation HDL Cholesterol TSH Arterial Blood Glucose Arterial Blood Ionized Calcium Urine WBC (Auto) Urine Creatinine Urine Total Protein Crossmatch 05/10/21 05/10/21 05/10/21 05:00 05:30 12:08 WBC RBC Hgb Hct MCH RDW Plt Count Seg Neuts % (Manual) Lymphocytes % (Manual) Nucleated RBC % Seg Neutrophils # Man Lymphocytes # (Manual) PT ABG pH POC ABG pCO2 POC ABG pO2 ABG pO2 ABG O2 Saturation ABG Base Excess ABG Hemoglobin ABG Oxyhemoglobin ABG Potassium ABG Chloride ABG Glucose Oxyhemoglobin Carboxyhemoglobin Sodium 148 H Potassium 3.4 L Chloride 110.5 H Carbon Dioxide BUN 36 H Creatinine 1.6 H Glucose 185 H POC Glucose 168 H 193 H Hemoglobin A1c Lactic Acid Calcium Phosphorus Magnesium Transferrin AST ALT Alkaline Phosphatase Total Creatine Kinase CK-MB (CK-2) Serum Total Protein Total Protein Albumin Mahnz-3-Wudnozfuy Kknbu-5-Srnchpbly Gamma Globulins PEP Interpretation HDL Cholesterol TSH Arterial Blood Glucose Arterial Blood Ionized Calcium Urine WBC (Auto) Urine Creatinine Urine Total Protein Crossmatch 05/10/21 05/10/21 05/11/21 18:02 23:25 05:40 WBC RBC 3.11 L Hgb 8.3 L Hct 26.6 L MCH 27 L RDW 15.7 H Plt Count 489 H Seg Neuts % (Manual) Lymphocytes % (Manual) Nucleated RBC % Seg Neutrophils # Man Lymphocytes # (Manual) PT ABG pH POC ABG pCO2 POC ABG pO2 ABG pO2 ABG O2 Saturation ABG Base Excess ABG Hemoglobin ABG Oxyhemoglobin ABG Potassium ABG Chloride ABG Glucose Oxyhemoglobin Carboxyhemoglobin Sodium Potassium Chloride Carbon Dioxide BUN Creatinine Glucose POC Glucose 205 H 171 H Hemoglobin A1c Lactic Acid Calcium Phosphorus Magnesium Transferrin AST ALT Alkaline Phosphatase Total Creatine Kinase CK-MB (CK-2) Serum Total Protein Total Protein Albumin Uuvly-1-Elzabfsjd Hjtnt-3-Cnkjiuves Gamma Globulins PEP Interpretation HDL Cholesterol TSH Arterial Blood Glucose Arterial Blood Ionized Calcium Urine WBC (Auto) Urine Creatinine Urine Total Protein Crossmatch 05/11/21 05/11/21 05/11/21 05:40 11:45 18:23 WBC RBC Hgb Hct MCH RDW Plt Count Seg Neuts % (Manual) Lymphocytes % (Manual) Nucleated RBC % Seg Neutrophils # Man Lymphocytes # (Manual) PT ABG pH POC ABG pCO2 POC ABG pO2 ABG pO2 ABG O2 Saturation ABG Base Excess ABG Hemoglobin ABG Oxyhemoglobin ABG Potassium ABG Chloride ABG Glucose Oxyhemoglobin Carboxyhemoglobin Sodium 149 H Potassium Chloride 112.0 H Carbon Dioxide BUN 36 H Creatinine 1.4 H Glucose 164 H POC Glucose 176 H 203 H Hemoglobin A1c Lactic Acid Calcium Phosphorus Magnesium Transferrin AST ALT Alkaline Phosphatase Total Creatine Kinase CK-MB (CK-2) Serum Total Protein Total Protein Albumin Gtytn-1-Pzhacqvig Bxitm-9-Rrcwpwoie Gamma Globulins PEP Interpretation HDL Cholesterol TSH Arterial Blood Glucose Arterial Blood Ionized Calcium Urine WBC (Auto) Urine Creatinine Urine Total Protein Crossmatch 05/12/21 05/12/21 05/12/21 00:30 04:10 04:10 WBC RBC 3.13 L Hgb 8.4 L Hct 26.6 L MCH 27 L RDW 15.7 H Plt Count 496 H Seg Neuts % (Manual) Lymphocytes % (Manual) Nucleated RBC % Seg Neutrophils # Man Lymphocytes # (Manual) PT ABG pH POC ABG pCO2 POC ABG pO2 ABG pO2 ABG O2 Saturation ABG Base Excess ABG Hemoglobin ABG Oxyhemoglobin ABG Potassium ABG Chloride ABG Glucose Oxyhemoglobin Carboxyhemoglobin Sodium Potassium Chloride Carbon Dioxide BUN 36 H Creatinine 1.3 H Glucose 182 H POC Glucose 161 H Hemoglobin A1c Lactic Acid Calcium 8.3 L Phosphorus Magnesium Transferrin AST ALT Alkaline Phosphatase Total Creatine Kinase CK-MB (CK-2) Serum Total Protein Total Protein Albumin Lwxau-7-Onagmdvme Iholj-5-Noxpdsejz Gamma Globulins PEP Interpretation HDL Cholesterol TSH Arterial Blood Glucose Arterial Blood Ionized Calcium Urine WBC (Auto) Urine Creatinine Urine Total Protein Crossmatch 05/12/21 05/12/21 05:24 11:50 WBC RBC Hgb Hct MCH RDW Plt Count Seg Neuts % (Manual) Lymphocytes % (Manual) Nucleated RBC % Seg Neutrophils # Man Lymphocytes # (Manual) PT ABG pH POC ABG pCO2 POC ABG pO2 ABG pO2 ABG O2 Saturation ABG Base Excess ABG Hemoglobin ABG Oxyhemoglobin ABG Potassium ABG Chloride ABG Glucose Oxyhemoglobin Carboxyhemoglobin Sodium Potassium Chloride Carbon Dioxide BUN Creatinine Glucose POC Glucose 177 H 180 H Hemoglobin A1c Lactic Acid Calcium Phosphorus Magnesium Transferrin AST ALT Alkaline Phosphatase Total Creatine Kinase CK-MB (CK-2) Serum Total Protein Total Protein Albumin Gjnbg-2-Pshsltozm Vzpxk-6-Svyrcgsuz Gamma Globulins PEP Interpretation HDL Cholesterol TSH Arterial Blood Glucose Arterial Blood Ionized Calcium Urine WBC (Auto) Urine Creatinine Urine Total Protein Crossmatch
--- NOTE | 2021-05-12 12:50 | Progress Note ---
Assessment and Plan Cultures: 04/21/2021 blood culture: No growth 04/21/2021 COVID-19 PCR: Negative 04/26/2021 sputum culture: Roselyn nonalbicans 04/29/2021 tracheal aspirate culture: Moderate growth of usual respiratory stanley 04/29/2021 blood culture: No growth 05/02/2021 urine culture: Roselyn tropicalis A/P: 80-year-old female who is a [facility] resident, with hypothyroidism, GERD, hyperlipidemia, schizophrenia, dementia was admitted on 04/20/2021 after being found unresponsive by the staff: #Septic shock: Likely from pneumonia and UTI. Completed meropenem. 04/29/2021 UA showed significant pyuria. Luther was changed. Typically candiduria does not need antifungal therapy especially since Luther was changed. However, given septic shock, treated with fluconazole 200 mg daily x 5 days. #Acute respiratory failure: On the vent #Acute renal failure: Renally adjust antibiotics. On dialysis. #Acute metabolic encephalopathy: related to CVA and severe hyponatremia which peaked at sodium of 179. #Acute CVA: neurology following. Recs: -monitor off antimicrobials Will sign off. Please reconsult if needed. Juanita Darling MD, FACP, [facility] ([facility]) O: [phone] F: [phone] Subjective Date of service: 05/12/21 Principal diagnosis: Acute respiratory failure Interval history: No fever. Remains on the vent. Mental status unchanged. Objective - Exam Narrative Exam: Physical Exam: Constitutional: unresponsive, intubated, on the vent Head, Ears, Nose: Normocephalic, atraumatic. External ears, nose normal Eyes: Conjunctivae/corneas clear. No icterus. No ptosis. Neck: intubated Oral: intubated Cardiovascular: S1, S2 + Respiratory: AE fair bilaterally and equal GI: Soft, bowel sounds + Musculoskeletal: b/l UE swelling + Skin: No rash or abscess Hem/Lymphatic: No palpable cervical or supraclavicular nodes. No lymphangitis Psych: no agitation Neurological: unresponsive, intubated, on the vent, exam limited - Constitutional Vitals: Vital Signs Temp Pulse Resp BP Pulse Ox 97.7 F 88 15 230/59 97 05/12/21 12:00 05/12/21 12:16 05/12/21 12:01 05/12/21 12:16 05/12/21 12:01 Temperature -Last 24 Hours Temperature 97.7 F Temperature 97.5 F Temperature 97.3 F Temperature 98.4 F Temperature 97.8 F Temperature 98.6 F - Labs CBC & Chem 7: 05/12/21 04:10 05/12/21 04:10 Labs: Abnormal lab results 05/11/21 05/12/21 05/12/21 Range/Units 18:23 00:30 04:10 RBC 3.13 L (3.65-5.03) M/mm3 Hgb 8.4 L (10.1-14.3) gm/dl Hct 26.6 L (30.3-42.9) % MCH 27 L (28-32) pg RDW 15.7 H (13.2-15.2) % Plt Count 496 H (140-440) K/mm3 BUN (7-17) mg/dL Creatinine (0.6-1.2) mg/dL Glucose (65-100) mg/dL POC Glucose 203 H 161 H (70-105) mg/dL Calcium (8.4-10.2) mg/dL 05/12/21 05/12/21 05/12/21 Range/Units 04:10 05:24 11:50 RBC (3.65-5.03) M/mm3 Hgb (10.1-14.3) gm/dl Hct (30.3-42.9) % MCH (28-32) pg RDW (13.2-15.2) % Plt Count (140-440) K/mm3 BUN 36 H (7-17) mg/dL Creatinine 1.3 H (0.6-1.2) mg/dL Glucose 182 H (65-100) mg/dL POC Glucose 177 H 180 H (70-105) mg/dL Calcium 8.3 L (8.4-10.2) mg/dL
--- NOTE | 2021-05-12 13:38 | Anesthesia Consultation ---
Anesthesia Consult and Med Hx Date of service: 05/12/21 - Airway Anesthetic Teeth Evaluation: Poor (multiple missing teeth) ROM Head & Neck: Adequate Mental/Hyoid Distance: Adequate Intubation Access Assessment: Probably Good - Pre-Operative Health Status ASA Pre-Surgery Classification: ASA4 Proposed Anesthetic Plan: General - Pulmonary Hx Respiratory Symptoms: Yes (respiratory failure, intubated) - Cardiovascular System Hx Hypertension: Yes Hx Coronary Artery Disease: No (high cholesterol) Hx Pacemaker: No Hx Internal Defibrillator: No - Central Nervous System CVA: No (hydrocephalus, cortex atrophy on MRI) Hx Psychiatric Problems: Yes (schizophrenia, dementia) - Gastrointestinal Hx Gastroesophageal Reflux Disease: Yes - Endocrine Hx Insulin Dependent Diabetes: Yes Hx Hypothyroidism: Yes - Additional Comments Anesthesia Medical History Comments: Respiratory failure, intubated, dysphagea. Scheduled for tracheostomy and PEG placement in OR for 05/13/[address] Clay
--- NOTE | 2021-05-12 16:02 | Progress Note ---
<LISA CLIFTON - Last Filed: 05/12/21 17:05> Assessment and Plan Assessment and plan: This is a 80-year-old female, alf resident with past medical history of GERD, hypothyroidism, hyperlipidemia, schizophrenia and dementia admitted with hypothermia, hyponatremia, hypokalemia, lactic acidosis, acute kidney injury, rhabdomyolysis and hyperosmolar nonketotic state. Hospital Course to Date: 04/21: Given 1 L LR bolus per nephrology and D5W increased to 125 mL's per hour, COVID-19 PCR pending, CXR and ABG ordered as patient was weaned from BiPAP to 3 L nasal cannula however was uptitrated back to nonrebreather. Will obtain blood cultures x2 given her leukocytosis and hypothermia. Replace potassium. Neurosurgery and neurology consulted and Luther catheter placed. 04/22: Improvement to sodium noted, slight hypokalemia which will be repleted, slight improvement to renal function, LFTs and rhabdomyolysis. Seen by neurosurgery today. Patient still making urine. transition to ssi and start TF as AG 15 04/23/2021: Given racemic epinephrine again due to stridor, continue IV fluids per nephrology, continue to trend sodium and BMP. 04/24/2021: 70/30 increased d/t hyperglycemia but recent BMP showed BG>300, gave additional 5 units IV insulin and ordered 5 units TID scheduled. However after IV insulin her PCOT was 400. Start on insulin gtt for hyperglycemia. Per RN she was not of IV D5 overniught d/t having one IV which was needed for emergency. Day RN did start dextrose. Remains with hyperglycemia. 04/25: Patient obtunded, withdrawal to pain only, on 50%Venti mask SPO2 abobe 92%. Plan to transition to SubQ insulin. Patient with mild hypernatremia this am, FWF added, will stop IVF for now. 04/26: Patient s/p intubation this am. Mentation is unchanged, plan for MRI brain today per NeuroSurg. Still hyperglycemic, hypernatremia improved, D5W D/katlyn, and basal insulin adjusted. 04/27: Bronch overnight. CXR with mild improvement. D/w Nephro plan for HD today, RIJ VasCath inserted. MRI on hold per [facility] patient is too unstable at this time, plan for possible spinal drained tomorrow to see if mentation will improve. 04/28: Tolerated HD overnight, only UF. Mentation remains the same. D/w CCM plan for possible large volume spinal tap under fluoroscopy today. Plan for possible HD again today. Continue FWF for elevated Na. 04/29: MARY overnight. Plan for spinal tap this am. febrile overnight with leukocytosis, remains on pressors and more tachycardic now. Will panculture patient, and empiric IV was initiated. Remains hyperglycemic, basal insulin adjusted. 04/30: Patient's mentation remains unchanged post spinal tap. Plan for possible MRI brain next week. Afebrile overnight and leukocytosis improved, However, vent settings are going up and this am ABG with hypoxia, this am CXR with worsening opacities. Patient with 3+ pitting edema. Continue HD per Nephro. Continue current empiric IV abx, f/u on culture data, might need to get ID on board if worsen. 05/01: Mentation is unchanged, still on pressors. Febrile this am, continue IV abx, ID consulted. 3L out yesterday, plan for HD again tomorrow. Plt count improved, might need to restart AC, will D/w CCM. 05/02: No change in mentation and she is now noted to be decorticating to pain -> MRI brain ordered. Scheduled for HD today. ID consult completed. 05/03: Neurology consulted given MRI findings of multiple acute CVAs, LINCOLN ordered, EEG pending, started on aspirin and Lipitor. updated POA 05/04: Received hemodialysis today, will schedule for LINCOLN today however HD was ongoing at the time neurology will obtain MRA brain and neck then consider LINCOLN, increasing midodrine to aid in weaning Levophed. 05/05: MRA/MRV completed today, urine culture grew Roselyn and was started on fluconazole, LINCOLN tentatively scheduled for tomorrow. Resume tube feeding and n.p.o. at midnight. 05/06: Patient was scheduled for LINCOLN which was attempted however patient became hypotensive and the procedure was aborted. She received HD today. No acute events reported overnight. Tube feedings resumed. 05/07: No acute changes overnight. 05/08: May need permacath, goals of care to be discussed and will likely happen after neuro recommendations tomorrow since LINCOLN was unable to be completed. No acute events overnight. Replete mag, decreased midodrine. 05/09: MARY overnight. Patient remains unresponsive. No HD today per Nephro, low K repleted. D/w CCM plan for possible conference call with patient's POA tomorrow to further discuss plan of care and possible alternatives. 05/10: Mentation unchanged. Given patient multiple failed PST, plan for possible trach and PEG per CCM. General Surgery consulted. No plan for HD today, low K repleted. Proph AC resumed, plt is stable. 05/11: Na remains elevated, continue FWF. Mildly hypertensive, continue PRN Hydral for SBP> 170. Possible trach and Peg on sunday by Gen. Surgery. 05/12: Renal function continue to improve, no indication for any more HD, VasCath D/katlyn. Hypernatremia improved, D/C IVF continue FWF. Hypertensive overnight, Norvasc added and PRN labetalol for SBP greater than 170. NPO After midnight tonight for possible trach and PEG in the am by Gen surgery Assessment and Plan #Neuro:Acute CVA #Acute metabolic encephalopathy #Normal Pressure Hydrocephalus -CT head shows lateral ventricles and third ventricle dilation, raises possibility of normal pressure hydrocephalus -Neurology and neurosurgery consulted, appreciate recommendations -neurosurgery no acute interventions -04/29 s/p spinal tap- 24ml out -MRI brain with multiple ischemic events in both hemisphere, possible embolic event with water shed infarct can not be totally excluded. -Continue ASA and lipitor -Maintain sleep-wake cycle -Avoid delirium -Hold off on restarting home antipsychotic medications #Hypotension-improved #Tachycardia #Sepsis -Was hypotensive, multifactorial-hypovelemia vs infectious process -S/p pressors -BP is now stable, Midodrine D/C -Norvasc added & PRN Labetalol -Continue blood pressure monitor per protocol -Maintain MAP above 65 and SBP less than 170 #Respiratory: Acute hypoxic respiratory failure #CAP #Possible Aspiration -S/p intubation this am 04/26 -Vent setting:PRVC-30%,6,14,450 -04/26 s/p bronchoscopy, this am CXR with mild improvement -No ABG this am -CCM consulted, appreciate recommendations -VAP bundle addressed -Aspiration precaution HOB above 30 -Daily ABG and CXR -Continue SPO2 monitoring for SPO2 goal above 92% -Multiple failed PST -plan for possible trach/PEG tomorrow -Gen. Surgery consulted #GI:Transaminitis #Hypoalbuminemia -Presented with transaminitis -Trend LFTs -Continue enteral nutrition- NPO AMN tonight -Ntr consult for TF -BR: Senokot -PPI #:Acute Kidney Injury (SYED) likely secondary to vasomotor nephropathy #Hypokalemia #Hypernatremia-improved #Urinary Retention-resolved -FeNA 0.50 indicating prerenal sate -Nephrology and CCM consulted, appreciate recommendations -04/27 vascath inserted and HD initiated, patient tolerated it well -Continue HD per Nephro -No HD today -Luther catheter placed for strict intake and output -Avoid nephrotoxic medication, Renally dose medications -K repleted -Continue to monitor and replace electrolytes as needed -Trend BMP #ID:CAP #Leukocytosis-improved #Urinary Tract Infection(UTI) -Patient presented hypothemic -CXR shows increased interstitial prominence of densities in bilateral lungs -COVID-19 PCR negative -Blood culture x2 NGTD -Antibiotic therapy course ended today 04/25 -Repeat Blood culture, and sputum culture NGTD -UA with pyuria, culture + yeast -Monitor WBC and fever curve -Daily CBC monitor -ID consulted #Endo:Hyperglycemia #s/p HHNK -Transition to SubQ insulin -Continue high dose SSI Q6hrs -Continue Basal, NPH -Avoid hypoglycemia #Heme:Thrombocytopenia-resolved -Presented with low plt, unknown etiology -Plt count improved -Resumed AC- Heparin SubQ -Trend CBC -Transfuse to hemoglobin less than 7 -Monitor for bleeding -r/o DVT, BE doppler neg -SCD to bilateral lower extremities while in bed The high probability of a clinically significant, sudden or life threatening deterioration of the [Multiple] system(s) required my full and direct attention, intervention and personal management. The aggregate critical care time was [60] minutes. This time is in addition to time spent performing reported procedures but includes the following: [x] Data Review and interpretation [x] Patient assessment and monitoring of vital signs [x] Documentation [x] Medication orders and management Disposition Plan: ICU Total Time Spent with Patient (Minutes): 60 History Interval history: Patient seen and examined at the bedside. Remains intubated and unresponsive. MARY overnight Hospitalist Physical - Constitutional Vitals: Temp Pulse Resp BP Pulse Ox 97.7 F 85 15 187/85 98 05/12/21 12:00 05/12/21 15:51 05/12/21 12:01 05/12/21 15:51 05/12/21 15:51 General appearance: Present: no acute distress, other (Intubated, unresponsive) - EENT Eyes: Present: PERRL - Respiratory Respiratory effort: normal Respiratory: bilateral: rhonchi - Cardiovascular Rhythm: regular Heart Sounds: Present: S1 & S2 - Extremities Extremities: no ischemia, pulses intact, pulses symmetrical Extremity abnormal: edema - Peripheral Assessment Generalized Edema Type: Non-pitting Edema Degree: 1+ Capillary Refill: < 3 seconds Skin Temperature: Warm Peripheral Pulses: within normal limits - Abdominal General gastrointestinal: soft, non-tender, normal bowel sounds - Integumentary Integumentary: Present: warm, dry - Psychiatric Psychiatric: other (Intubated, unresponsive) - Neurologic Neurologic: other (Intubated, unresponsive) - Allied Health Allied health notes reviewed: nursing HEART Score - HEART Score Troponin: Troponin T 0.021 ng/mL (0.00-0.029) 04/20/21 17:10 Results - Labs CBC & Chem 7: 05/12/21 04:10 05/12/21 04:10 Labs: Laboratory Last Values WBC 10.5 K/mm3 (4.5-11.0) 05/12/21 04:10 RBC 3.13 M/mm3 (3.65-5.03) L 05/12/21 04:10 Hgb 8.4 gm/dl (10.1-14.3) L 05/12/21 04:10 Hct 26.6 % (30.3-42.9) L 05/12/21 04:10 MCV 85 fl (79-97) 05/12/21 04:10 MCH 27 pg (28-32) L 05/12/21 04:10 MCHC 31 % (30-34) 05/12/21 04:10 RDW 15.7 % (13.2-15.2) H 05/12/21 04:10 Plt Count 496 K/mm3 (140-440) H 05/12/21 04:10 Add Manual Diff Complete 04/28/21 04:00 Total Counted 100 04/28/21 04:00 Seg Neutrophils % [employer] 04/28/21 04:00 Seg Neuts % (Manual) 77.0 % (40.0-70.0) H 04/26/21 09:33 Band Neutrophils % 2.0 % 04/28/21 04:00 Lymphocytes % (Manual) 1.0 % (13.4-35.0) L 04/28/21 04:00 Reactive Lymphs % (Man) 0 % 04/28/21 04:00 Monocytes % (Manual) 1.0 % (0.0-7.3) 04/28/21 04:00 Eosinophils % (Manual) 3.0 % (0.0-4.3) 04/28/21 04:00 Metamyelocytes % 1.0 % 04/28/21 04:00 Myelocytes % 0 % 04/28/21 04:00 Promyelocytes % 0 % 04/28/21 04:00 Blast Cells % 0 % 04/28/21 04:00 Nucleated RBC % 4.0 % (0.0-0.9) H 04/28/21 04:00 Seg Neutrophils # Man 11.6 K/mm3 (1.8-7.7) H 04/28/21 04:00 Band Neutrophils # 0.3 K/mm3 04/28/21 04:00 Lymphocytes # (Manual) 0.1 K/mm3 (1.2-5.4) L 04/28/21 04:00 Abs React Lymphs (Man) 0.0 K/mm3 04/28/21 04:00 Monocytes # (Manual) 0.1 K/mm3 (0.0-0.8) 04/28/21 04:00 Eosinophils # (Manual) 0.4 K/mm3 (0.0-0.4) 04/28/21 04:00 Basophils # (Manual) 0.0 K/mm3 (0.0-0.1) 04/28/21 04:00 Metamyelocytes # 0.1 K/mm3 04/28/21 04:00 Myelocytes # 0.0 K/mm3 04/28/21 04:00 Promyelocytes # 0.0 K/mm3 04/28/21 04:00 Blast Cells # 0.0 K/mm3 04/28/21 04:00 WBC Morphology Not Reportable 04/28/21 04:00 Hypersegmented Neuts Not Reportable 04/28/21 04:00 Hyposegmented Neuts Not Reportable 04/28/21 04:00 Hypogranular Neuts Not Reportable 04/28/21 04:00 Smudge Cells Not Reportable 04/28/21 04:00 Toxic Granulation Not Reportable 04/28/21 04:00 Toxic Vacuolation Not Reportable 04/28/21 04:00 Dohle Bodies Not Reportable 04/28/21 04:00 Pelger-Huet Anomaly Not Reportable 04/28/21 04:00 Moni Rods Not Reportable 04/28/21 04:00 Platelet Estimate Consistent w auto 04/28/21 04:00 Clumped Platelets Not Reportable 04/28/21 04:00 Plt Clumps, EDTA Not Reportable 04/28/21 04:00 Large Platelets Few 04/28/21 04:00 Giant Platelets Not Reportable 04/28/21 04:00 Platelet Satelliting Not Reportable 04/28/21 04:00 Plt Morphology Comment Not Reportable 04/28/21 04:00 RBC Morphology Not Reportable 04/28/21 04:00 Dimorphic RBCs Not Reportable 04/28/21 04:00 Polychromasia Not Reportable 04/28/21 04:00 Hypochromasia Not Reportable 04/28/21 04:00 Poikilocytosis Not Reportable 04/28/21 04:00 Anisocytosis Not Reportable 04/28/21 04:00 Microcytosis Not Reportable 04/28/21 04:00 Macrocytosis Not Reportable 04/28/21 04:00 Spherocytes Not Reportable 04/28/21 04:00 Pappenheimer Bodies Not Reportable 04/28/21 04:00 Sickle Cells Not Reportable 04/28/21 04:00 Target Cells 1+ 04/28/21 04:00 Tear Drop Cells Not Reportable 04/28/21 04:00 Ovalocytes Not Reportable 04/28/21 04:00 Helmet Cells Not Reportable 04/28/21 04:00 [place] Bodies Not Reportable 04/28/21 04:00 [place] Rings Not Reportable 04/28/21 04:00 [place] Cells Not Reportable 04/28/21 04:00 Bite Cells Not Reportable 04/28/21 04:00 Crenated Cell Not Reportable 04/28/21 04:00 Elliptocytes Not Reportable 04/28/21 04:00 Acanthocytes (Spur) Not Reportable 04/28/21 04:00 Rouleaux Not Reportable 04/28/21 04:00 Hemoglobin C Crystals Not Reportable 04/28/21 04:00 Schistocytes Not Reportable 04/28/21 04:00 Malaria parasites Not Reportable 04/28/21 04:00 Herrera Bodies Not Reportable 04/28/21 04:00 Hem Pathologist Commnt No 04/28/21 04:00 PT 15.3 Sec. (12.2-14.9) H 04/28/21 05:00 INR 1.09 (0.87-1.13) 04/28/21 05:00 APTT 36.6 Sec. (24.2-36.6) 04/28/21 05:00 Heparin Anti-Xa, Unfract Negative (Negative) 04/24/21 17:29 ABG pH 7.487 (7.320-7.450) H 05/02/21 04:34 POC ABG pCO2 35.3 mmHg (32.0-48.0) 05/02/21 04:34 ABG pCO2 31.6 mm Hg 04/21/21 15:47 POC ABG pO2 78.6 mmHg (83-108) L 05/02/21 04:34 ABG pO2 168.1 mm Hg (80.0-90.0) H 04/21/21 15:47 POC ABG HCO3 26.1 05/02/21 04:34 ABG HCO3 23.3 mmol/L (20.0-26.0) 04/21/21 15:47 ABG O2 Saturation 96.0 (0-100) 05/02/21 04:34 ABG O2 Content 12.7 (0.0-44) 04/21/21 15:47 POC ABG Base Excess 2.9 05/02/21 04:34 ABG Base Excess 0.3 mmol/L (-2.0-3.0) 04/21/21 15:47 ABG Hemoglobin 11.5 (12.0-17.5) L 05/02/21 04:34 ABG Oxyhemoglobin 95.1 (94-98) 05/02/21 04:34 ABG Carboxyhemoglobin 1.0 % (0.0-5.0) 04/21/21 15:47 ABG Methemoglobin 0.3 (0.0-1.5) 05/02/21 04:34 ABG Sodium 138.6 mmol/L (136.0-145.0) 05/02/21 04:34 ABG Potassium 3.4 mmol/L (3.40-4.50) 05/02/21 04:34 ABG Chloride 105.0 mmol/L (98-107) 05/02/21 04:34 ABG Glucose 122 mg/dL (65-95) H 05/02/21 04:34 VBG pH 7.397 (7.320-7.420) 04/20/21 17:10 Oxyhemoglobin 97.5 % (95.0-99.0) 04/21/21 15:47 Carboxyhemoglobin 0.6 (0.5-1.5) 05/02/21 04:34 FiO2 100 % 04/21/21 15:47 FiO2 % 40.0 05/02/21 04:34 Sodium 144 mmol/L (137-145) 05/12/21 04:10 Potassium 3.7 mmol/L (3.6-5.0) 05/12/21 04:10 Chloride 107.0 mmol/L (98-107) 05/12/21 04:10 Carbon Dioxide 27 mmol/L (22-30) 05/12/21 04:10 Anion Gap 14 mmol/L 05/12/21 04:10 BUN 36 mg/dL (7-17) H 05/12/21 04:10 Creatinine 1.3 mg/dL (0.6-1.2) H 05/12/21 04:10 Estimated GFR 48 ml/min 05/12/21 04:10 BUN/Creatinine Ratio 28 % 05/12/21 04:10 Glucose 182 mg/dL (65-100) H 05/12/21 04:10 POC Glucose 180 mg/dL (70-105) H 05/12/21 11:50 Hemoglobin A1c 17.1 % (4-6) H 04/22/21 15:55 Lactic Acid 1.90 mmol/L (0.7-2.0) 04/20/21 19:56 Calcium 8.3 mg/dL (8.4-10.2) L 05/12/21 04:10 Phosphorus 2.90 mg/dL (2.5-4.5) 05/11/21 05:40 Magnesium 2.00 mg/dL (1.7-2.3) 05/11/21 05:40 Iron 62 ug/dL (37-170) 04/24/21 17:29 TIBC 285 mcg/dL (250-450) 04/24/21 17:29 % Saturation 21.75 % 04/24/21 17:29 Transferrin 112 mg/dl (192-382) L 04/24/21 17:29 Total Bilirubin 0.20 mg/dL (0.1-1.2) 05/03/21 04:00 Direct Bilirubin < 0.2 mg/dL (0-0.2) 04/29/21 04:00 Indirect Bilirubin 0.1 mg/dL 04/29/21 04:00 AST 53 units/L (5-40) H 05/03/21 04:00 ALT 55 units/L (7-56) 05/03/21 04:00 Alkaline Phosphatase 149 units/L (35-129) H 05/03/21 04:00 Ammonia 29.0 umol/L (25-60) 04/20/21 17:10 Total Creatine Kinase 1000 units/L (30-135) H 04/27/21 07:43 CK-MB (CK-2) 36.0 ng/mL (0.0-4.0) H 04/20/21 17:10 CK-MB (CK-2) Rel Index 0.9 (0-4) 04/20/21 17:10 Troponin T 0.021 ng/mL (0.00-0.029) 04/20/21 17:10 Serum Total Protein 5.5 g/dL (6.1-8.1) L 04/22/21 08:59 Total Protein 5.2 g/dL (6.3-8.2) L 05/03/21 04:00 Albumin 1.5 g/dL (3.9-5) L 05/03/21 04:00 Albumin/Globulin Ratio 0.4 % 05/03/21 04:00 Feblj-3-Lqhehjnuw 0.6 g/dL (0.2-0.3) H 04/22/21 08:59 Lclzq-9-Whvxqjiyb 1.0 g/dL (0.5-0.9) H 04/22/21 08:59 Beta Globulins 0.3 g/dL (0.2-0.5) 04/22/21 08:59 Gamma Globulins 0.6 g/dL (0.8-1.7) L 04/22/21 08:59 Abnorm Protein Band 1 see below 04/22/21 08:59 PEP Interpretation see below H 04/22/21 08:59 Triglycerides 80 mg/dL (2-149) 05/04/21 04:48 Cholesterol 90 mg/dL (50-199) 05/04/21 04:48 LDL Cholesterol Direct 51 mg/dL (50-130) 05/04/21 04:48 HDL Cholesterol 24 mg/dL (40-59) L 05/04/21 04:48 Cholesterol/HDL Ratio 3.75 % 05/04/21 04:48 Serotonin Release Assay See scanned result 04/24/21 17:29 TSH 6.040 mlU/mL (0.270-4.200) H 04/20/21 17:10 Free T4 0.93 ng/dL (0.76-1.46) 04/20/21 17:10 Arterial Blood Glucose 122 mg/dL (65-95) H 05/02/21 04:34 Arterial Blood Ionized Calcium 4.5 mg/dL (4.6-5.3) L 04/28/21 05:18 Urine Color Yellow (Yellow) 04/29/21 13:30 Urine Turbidity Turbid (Clear) 04/29/21 13:30 Urine pH 5.0 (5.0-7.0) 04/29/21 13:30 Ur Specific [place] 1.010 (1.003-1.030) 04/29/21 13:30 Urine Protein 100 mg/dl mg/dL (Negative) 04/29/21 13:30 Urine Glucose (UA) 150 mg/dL (Negative) 04/29/21 13:30 Urine Ketones Neg mg/dL (Negative) 04/29/21 13:30 Urine Blood Lg (Negative) 04/29/21 13:30 Urine Nitrite Neg (Negative) 04/29/21 13:30 Urine Bilirubin Neg (Negative) 04/29/21 13:30 Urine Urobilinogen < 2.0 mg/dL (<2.0) 04/29/21 13:30 Ur Leukocyte Esterase Lg (Negative) 04/29/21 13:30 Urine WBC (Auto) > 182.0 /HPF (0.0-6.0) H 04/29/21 13:30 Urine RBC (Auto) > 182.0 /HPF (0.0-6.0) 04/29/21 13:30 U Epithel Cells (Auto) 4.0 /HPF (0-13.0) 04/29/21 13:30 Urine WBC Clumps 3+ /HPF 04/29/21 13:30 Urine Mucus Few /HPF 04/29/21 13:30 Urine Yeast (Budding) 3+ /HPF 04/29/21 13:30 Urine Osmolality 446 Mosm/kg 04/21/21 08:01 Urine Total Volume 1700 ml 05/08/21 09:34 Urine Creatinine 56.0 mg/dL (0.1-20.0) H 05/08/21 09:34 Ur Creatinine 24 Hour 1.0 (0.8-2.8) 05/08/21 09:34 Urine Sodium 71 mmol/L 04/21/21 08:01 Urine Total Protein 12 mg/dL (5-11.8) H 04/21/21 08:01 CSF Appearance Clear 04/29/21 11:45 CSF Color Colorless 04/29/21 11:45 CSF WBC 14 /mm3 (1-10) 04/29/21 11:45 CSF RBC 324 /mm3 (0-0) 04/29/21 11:45 CSF Seg Neutrophils 50.0 % (0-6) 04/29/21 11:45 CSF Lymphocytes % 40.0 % (40-80) 04/29/21 11:45 CSF Reactive Lymphs Not Reportable 04/29/21 11:45 CSF Monocytes % 10.0 % (15-45) 04/29/21 11:45 CSF Eosinophils % Not Reportable 04/29/21 11:45 CSF Basophils Not Reportable 04/29/21 11:45 CSF Pathologist Review C 04/29/21 11:45 CSF Glucose 161 mg/dL 04/29/21 11:45 CSF Total Protein 51 mg/dL 04/29/21 11:45 Plasma/Serum Alcohol < 0.01 % (0-0.07) 04/20/21 17:10 Heparin-induced Plt Ab Negative (Negative) 01/02/22 17:29 UF Heparin High Dose 1 % Release 04/24/21 17:29 EFE UFH Low Dose 0.1 0 % Release 04/24/21 17:29 EFE UFH Low Dose 0.5 0 % Release 04/24/21 17:29 Coronavirus (PCR) Negative (Negative) 04/21/21 Unknown Hepatitis A IgM Ab Non-reactive (NonReactive) 04/27/21 12:49 Hep Bs Antigen Nonreactive (Negative) 04/27/21 12:49 Hep B Core IgM Ab Non-reactive (NonReactive) 04/27/21 12:49 Hepatitis C Antibody Non-reactive (NonReactive) 04/27/21 12:49 Blood Type O POSITIVE 05/02/21 12:00 Antibody Screen Negative 05/02/21 12:00 Crossmatch See Detail 05/02/21 12:00 Microbiology: Microbiology 05/02/21 Unknown Urine,Catheterized - Indwelling Catheter Urine Culture - Preliminary Roselyn Tropicalis Luther/IV: Voiding Method Indwelling Catheter Active Medications - Current Medications Current Medications: Generic Name Dose Route Start Last Admin Trade Name Freq PRN Reason Stop Dose Admin Acetaminophen 650 mg 04/20/21 21:31 05/01/21 18:15 Acetaminophen 325 Mg Tab PO 650 mg Q4H PRN Administration Pain MILD(1-3)/Fever >100.5/TURCIOS Albumin Human 25 gm 05/06/21 16:06 05/06/21 16:21 Albumin Human 25% (25 Gm/100 Ml) Inj IV 25 gm MITCH PRN Administration Hypotension Albuterol 2.5 mg 04/22/21 14:49 04/23/21 15:18 Albuterol 2.5 Mg/3 Ml Nebu IH 2.5 mg Q4HRT PRN Administration Shortness Of Breath Amlodipine Besylate 5 mg 05/12/21 10:00 05/12/21 09:57 Amlodipine 5 Mg Tab PO 5 mg QDAY AZIZA Administration Lipase/Protease/Amylase 1 each 04/25/21 14:13 Lipase 10,500/Protease 25,000/Amylase 43,750 (Units) Dr Vasquez FEEDTUBE PRN PRN For Clogged Feeding Tube Aspirin 81 mg 05/04/21 10:00 05/12/21 09:57 Aspirin 81 Mg Tab Chew FEEDTUBE 81 mg QDAY AZIZA Administration Atorvastatin Calcium 40 mg 05/04/21 22:00 05/11/21 21:07 Atorvastatin 40 Mg Tab FEEDTUBE 40 mg QHS AZIZA Administration Dextrose 50 ml 04/24/21 11:36 Dextrose 50% In Water (25gm) 50 Ml Syringe IV Q30MIN PRN Hypoglycemia Protocol Famotidine 10 mg 04/27/21 10:00 05/12/21 09:57 Famotidine 10 Mg Tab FEEDTUBE 10 mg BID AZIZA Administration Heparin Sodium (Porcine) 5,000 unit 05/10/21 22:00 05/12/21 09:56 Heparin 5,000 Unit/1 Ml Vial SUB-Q 5,000 unit Q12HR AZIZA Administration Hydrophilic Ointment 1 applic 04/26/21 11:16 Lip Therapy Vaseline TP Q2HR PRN Dry Lips Insulin Human Lispro 0 unit 04/25/21 18:00 05/12/21 05:49 Insulin Lispro 100 Unit/Ml SUB-Q 3 unit Q6HR AZIZA Administration Protocol Labetalol HCl 20 mg 05/12/21 11:34 05/12/21 12:16 Labetalol 20 Mg/4 Ml Inj IV 20 mg Q4H PRN Administration SBP >/=170 Levothyroxine Sodium 50 mcg 05/03/21 06:00 05/12/21 05:50 Levothyroxine 50 Mcg Tab PO 50 mcg DAILY@0600 AZIZA Administration Lorazepam 1 mg 04/26/21 11:15 05/12/21 09:56 Lorazepam 2 Mg/Ml Vial IV 1 mg Q4H PRN Administration Sedation Metoclopramide HCl 5 mg 04/20/21 21:31 Metoclopramide 10 Mg/2 Ml Inj IV Q6H PRN Nausea And Vomiting Multi-Ingred Cream/Lotion/Oil/Oint 1 applic 04/26/21 11:16 Mineral Oil/Petrolatum, White Ophth Oint 3.5 Gm OU Q4HR PRN Dry Eye(s) Ondansetron HCl 4 mg 04/20/21 21:31 Ondansetron 4 Mg/2 Ml Inj IV Q8H PRN Nausea And Vomiting Senna/Docusate Sodium 1 tab 04/26/21 22:00 05/12/21 09:57 Sennosides/Docusate Sodium 8.6/50 Mg Tab FEEDTUBE 1 tab BID AZIZA Administration Simple Syrup 15 ml 04/25/21 14:13 Simple Syrup 15 Ml FEEDTUBE PRN PRN Hypoglycemia Simple Syrup 30 ml 04/25/21 14:13 Simple Syrup 15 Ml FEEDTUBE PRN PRN Hypoglycemia Sodium Bicarbonate 325 mg 04/25/21 14:13 04/27/21 13:00 Sodium Bicarbonate 325 Mg Tab FEEDTUBE 325 mg PRN PRN Administration For Clogged Feeding Tube Sodium Bicarbonate 1,300 mg 04/27/21 14:00 05/12/21 08:57 Sodium Bicarbonate 650 Mg Tab PO 1,300 mg TID AZIZA Administration Sodium Chloride 10 ml 04/20/21 22:00 05/12/21 09:58 Sodium Chloride 0.9% 10 Ml Flush Syringe IV 10 ml BID AZIZA Administration Sodium Chloride 10 ml 04/20/21 21:31 Sodium Chloride 0.9% 10 Ml Flush Syringe IV PRN PRN LINE FLUSH Nutrition/Malnutrition Assess - Dietary Evaluation Nutrition/Malnutrition Findings: Nutrition Notes Start: 04/21/21 12:15 Freq: Status: Active Protocol: Document 05/11/21 15:28 JOSE (Rec: 05/11/21 15:48 JOSE [id number]) Nutrition Notes Initial or Follow up Reassessment Current Diagnosis Acute Kidney Injury, Respiratory Failure, Hyperlipidemia Other Pertinent Diagnosis Ac Metabolic encephalopathy, Rabdomyolisis, Met acidosis, Leukocytosis. Current Diet TF-Nepro w/CARBSTEADY @ 32 ml/ hr (since 04/29). Labs/Tests 05/11: Na 149, Cl 112, BUN 36, Crea 1.4, Glu 164. Pertinent Medications 05/11: insulin, levothyroxine, others nutritionally unremarkable. Height 5 ft 2 in Weight 72.4 kg [place] Body Weight (kg) 50.00 BMI 29.2 Weight change and time frame No body weight change reported . Weight Status Overweight Subjective/Other Information RD consult for routine F/U on TF tolerance. TF will be stop on 05/13 00:01 , for tracheostomy and PEG tube placement. Percent of energy/protein needs met: Prescribed TF-Nepro w/ CARBSTEADY @ 32 ml/hr provides for energy/protein needs (1, 389 Kcal/63 g) during LOS, 100 % Kcal; 72% AA. Burn Absent Trauma Absent GI Symptoms None Food Allergy No Skin Integrity/Comment Clear, warm, dry. Current % PO Other Minimum of two criteria No #1 Nutrition Diagnosis Inadequate oral intake Diagnosis Progress(for reassessment Continues documentation) Is patient on ventilator? Yes Is Patient Ambulatory and/or Out of Bed No REE-([facility]-confined to bed) [phone] Calculation Used for Recommendations [facility] Additional Notes Protein: >1.2 g/kg: >87 g/day. Fluids: 1-1.5 L/day, or as per MD. Nutrition Intervention Nutrition Support: Continue TF to Nepro w/ CARBSTEADY @ 32 ml/hr. Flush: 140 ml water Q 4 hr, or as per MD. Kcal 1,382 Protein (gm) 62 Carbohydrates (gm) 124 Fat (gm) 74 Fluid (mL) 558 Fiber (gm) 10 % RDI: 100% Kcal; 72% AA. Goal #1 Provide at least 75% of energy /protein needs through Enteral Feeding during LOS. Follow-Up By: 05/13/21 Additional Comments Continue monitoring TF tolerance and BM. <TACHO RUBALCAVA - Last Filed: 05/14/21 12:06> Assessment and Plan Assessment and plan: I saw and evaluated the patient. Discussed with the nurse practitioner and agree with their findings and plan as documented in this note. Hospitalist Physical - Constitutional Vitals: Temp Pulse Resp BP Pulse Ox 99.9 F H 95 H 14 123/54 100 05/14/21 11:22 05/14/21 11:31 05/14/21 11:31 05/14/21 11:31 05/14/21 11:31 HEART Score - HEART Score Troponin: Troponin T 0.021 ng/mL (0.00-0.029) 04/20/21 17:10 Results - Labs CBC & Chem 7: 05/14/21 04:43 05/14/21 04:43 Labs: Laboratory Last Values WBC 10.1 K/mm3 (4.5-11.0) 05/14/21 04:43 RBC 3.02 M/mm3 (3.65-5.03) L 05/14/21 04:43 Hgb 8.3 gm/dl (10.1-14.3) L 05/14/21 04:43 Hct 25.6 % (30.3-42.9) L 05/14/21 04:43 MCV 85 fl (79-97) 05/14/21 04:43 MCH 28 pg (28-32) 05/14/21 04:43 MCHC 33 % (30-34) 05/14/21 04:43 RDW 15.5 % (13.2-15.2) H 05/14/21 04:43 Plt Count 482 K/mm3 (140-440) H 05/14/21 04:43 Add Manual Diff Complete 04/28/21 04:00 Total Counted 100 04/28/21 04:00 Seg Neutrophils % [employer] 04/28/21 04:00 Seg Neuts % (Manual) 77.0 % (40.0-70.0) H 04/26/21 09:33 Band Neutrophils % 2.0 % 04/28/21 04:00 Lymphocytes % (Manual) 1.0 % (13.4-35.0) L 04/28/21 04:00 Reactive Lymphs % (Man) 0 % 04/28/21 04:00 Monocytes % (Manual) 1.0 % (0.0-7.3) 04/28/21 04:00 Eosinophils % (Manual) 3.0 % (0.0-4.3) 04/28/21 04:00 Metamyelocytes % 1.0 % 04/28/21 04:00 Myelocytes % 0 % 04/28/21 04:00 Promyelocytes % 0 % 04/28/21 04:00 Blast Cells % 0 % 04/28/21 04:00 Nucleated RBC % 4.0 % (0.0-0.9) H 04/28/21 04:00 Seg Neutrophils # Man 11.6 K/mm3 (1.8-7.7) H 04/28/21 04:00 Band Neutrophils # 0.3 K/mm3 04/28/21 04:00 Lymphocytes # (Manual) 0.1 K/mm3 (1.2-5.4) L 04/28/21 04:00 Abs React Lymphs (Man) 0.0 K/mm3 04/28/21 04:00 Monocytes # (Manual) 0.1 K/mm3 (0.0-0.8) 04/28/21 04:00 Eosinophils # (Manual) 0.4 K/mm3 (0.0-0.4) 04/28/21 04:00 Basophils # (Manual) 0.0 K/mm3 (0.0-0.1) 04/28/21 04:00 Metamyelocytes # 0.1 K/mm3 04/28/21 04:00 Myelocytes # 0.0 K/mm3 04/28/21 04:00 Promyelocytes # 0.0 K/mm3 04/28/21 04:00 Blast Cells # 0.0 K/mm3 04/28/21 04:00 WBC Morphology Not Reportable 04/28/21 04:00 Hypersegmented Neuts Not Reportable 04/28/21 04:00 Hyposegmented Neuts Not Reportable 04/28/21 04:00 Hypogranular Neuts Not Reportable 04/28/21 04:00 Smudge Cells Not Reportable 04/28/21 04:00 Toxic Granulation Not Reportable 04/28/21 04:00 Toxic Vacuolation Not Reportable 04/28/21 04:00 Dohle Bodies Not Reportable 04/28/21 04:00 Pelger-Huet Anomaly Not Reportable 04/28/21 04:00 Moni Rods Not Reportable 04/28/21 04:00 Platelet Estimate Consistent w auto 04/28/21 04:00 Clumped Platelets Not Reportable 04/28/21 04:00 Plt Clumps, EDTA Not Reportable 04/28/21 04:00 Large Platelets Few 04/28/21 04:00 Giant Platelets Not Reportable 04/28/21 04:00 Platelet Satelliting Not Reportable 04/28/21 04:00 Plt Morphology Comment Not Reportable 04/28/21 04:00 RBC Morphology Not Reportable 04/28/21 04:00 Dimorphic RBCs Not Reportable 04/28/21 04:00 Polychromasia Not Reportable 04/28/21 04:00 Hypochromasia Not Reportable 04/28/21 04:00 Poikilocytosis Not Reportable 04/28/21 04:00 Anisocytosis Not Reportable 04/28/21 04:00 Microcytosis Not Reportable 04/28/21 04:00 Macrocytosis Not Reportable 04/28/21 04:00 Spherocytes Not Reportable 04/28/21 04:00 Pappenheimer Bodies Not Reportable 04/28/21 04:00 Sickle Cells Not Reportable 04/28/21 04:00 Target Cells 1+ 04/28/21 04:00 Tear Drop Cells Not Reportable 04/28/21 04:00 Ovalocytes Not Reportable 04/28/21 04:00 Helmet Cells Not Reportable 04/28/21 04:00 [place] Bodies Not Reportable 04/28/21 04:00 [place] Rings Not Reportable 04/28/21 04:00 [place] Cells Not Reportable 04/28/21 04:00 Bite Cells Not Reportable 04/28/21 04:00 Crenated Cell Not Reportable 04/28/21 04:00 Elliptocytes Not Reportable 04/28/21 04:00 Acanthocytes (Spur) Not Reportable 04/28/21 04:00 Rouleaux Not Reportable 04/28/21 04:00 Hemoglobin C Crystals Not Reportable 04/28/21 04:00 Schistocytes Not Reportable 04/28/21 04:00 Malaria parasites Not Reportable 04/28/21 04:00 Herrera Bodies Not Reportable 04/28/21 04:00 Hem Pathologist Commnt No 04/28/21 04:00 PT 14.7 Sec. (12.2-14.9) 05/13/21 04:24 INR 1.04 (0.87-1.13) 05/13/21 04:24 APTT 36.6 Sec. (24.2-36.6) 04/28/21 05:00 Heparin Anti-Xa, Unfract Negative (Negative) 04/24/21 17:29 ABG pH 7.487 (7.320-7.450) H 05/02/21 04:34 POC ABG pCO2 35.3 mmHg (32.0-48.0) 05/02/21 04:34 ABG pCO2 31.6 mm Hg 04/21/21 15:47 POC ABG pO2 78.6 mmHg (83-108) L 05/02/21 04:34 ABG pO2 168.1 mm Hg (80.0-90.0) H 04/21/21 15:47 POC ABG HCO3 26.1 05/02/21 04:34 ABG HCO3 23.3 mmol/L (20.0-26.0) 04/21/21 15:47 ABG O2 Saturation 96.0 (0-100) 05/02/21 04:34 ABG O2 Content 12.7 (0.0-44) 04/21/21 15:47 POC ABG Base Excess 2.9 05/02/21 04:34 ABG Base Excess 0.3 mmol/L (-2.0-3.0) 04/21/21 15:47 ABG Hemoglobin 11.5 (12.0-17.5) L 05/02/21 04:34 ABG Oxyhemoglobin 95.1 (94-98) 05/02/21 04:34 ABG Carboxyhemoglobin 1.0 % (0.0-5.0) 04/21/21 15:47 ABG Methemoglobin 0.3 (0.0-1.5) 05/02/21 04:34 ABG Sodium 138.6 mmol/L (136.0-145.0) 05/02/21 04:34 ABG Potassium 3.4 mmol/L (3.40-4.50) 05/02/21 04:34 ABG Chloride 105.0 mmol/L (98-107) 05/02/21 04:34 ABG Glucose 122 mg/dL (65-95) H 05/02/21 04:34 VBG pH 7.397 (7.320-7.420) 04/20/21 17:10 Oxyhemoglobin 97.5 % (95.0-99.0) 04/21/21 15:47 Carboxyhemoglobin 0.6 (0.5-1.5) 05/02/21 04:34 FiO2 100 % 04/21/21 15:47 FiO2 % 40.0 05/02/21 04:34 Sodium 138 mmol/L (137-145) 05/14/21 04:43 Potassium 4.0 mmol/L (3.6-5.0) 05/14/21 04:43 Chloride 104.1 mmol/L (98-107) 05/14/21 04:43 Carbon Dioxide 23 mmol/L (22-30) 05/14/21 04:43 Anion Gap 15 mmol/L 05/14/21 04:43 BUN 29 mg/dL (7-17) H 05/14/21 04:43 Creatinine 1.2 mg/dL (0.6-1.2) 05/14/21 04:43 Estimated GFR 52 ml/min 05/14/21 04:43 BUN/Creatinine Ratio 24 % 05/14/21 04:43 Glucose 192 mg/dL (65-100) H 05/14/21 04:43 POC Glucose 215 mg/dL (70-105) H 05/14/21 10:59 Hemoglobin A1c 17.1 % (4-6) H 04/22/21 15:55 Lactic Acid 1.90 mmol/L (0.7-2.0) 04/20/21 19:56 Calcium 8.1 mg/dL (8.4-10.2) L 05/14/21 04:43 Phosphorus 3.20 mg/dL (2.5-4.5) 05/14/21 04:43 Magnesium 2.20 mg/dL (1.7-2.3) 05/14/21 04:43 Iron 62 ug/dL (37-170) 04/24/21 17:29 TIBC 285 mcg/dL (250-450) 04/24/21 17:29 % Saturation 21.75 % 04/24/21 17:29 Transferrin 112 mg/dl (192-382) L 04/24/21 17:29 Total Bilirubin 0.20 mg/dL (0.1-1.2) 05/03/21 04:00 Direct Bilirubin < 0.2 mg/dL (0-0.2) 04/29/21 04:00 Indirect Bilirubin 0.1 mg/dL 04/29/21 04:00 AST 53 units/L (5-40) H 05/03/21 04:00 ALT 55 units/L (7-56) 05/03/21 04:00 Alkaline Phosphatase 149 units/L (35-129) H 05/03/21 04:00 Ammonia 29.0 umol/L (25-60) 04/20/21 17:10 Total Creatine Kinase 1000 units/L (30-135) H 04/27/21 07:43 CK-MB (CK-2) 36.0 ng/mL (0.0-4.0) H 04/20/21 17:10 CK-MB (CK-2) Rel Index 0.9 (0-4) 04/20/21 17:10 Troponin T 0.021 ng/mL (0.00-0.029) 04/20/21 17:10 Serum Total Protein 5.5 g/dL (6.1-8.1) L 04/22/21 08:59 Total Protein 5.2 g/dL (6.3-8.2) L 05/03/21 04:00 Albumin 1.5 g/dL (3.9-5) L 05/03/21 04:00 Albumin/Globulin Ratio 0.4 % 05/03/21 04:00 Fxgax-9-Bhnyabfbr 0.6 g/dL (0.2-0.3) H 04/22/21 08:59 Ijmet-0-Octkcykqw 1.0 g/dL (0.5-0.9) H 04/22/21 08:59 Beta Globulins 0.3 g/dL (0.2-0.5) 04/22/21 08:59 Gamma Globulins 0.6 g/dL (0.8-1.7) L 04/22/21 08:59 Abnorm Protein Band 1 see below 04/22/21 08:59 PEP Interpretation see below H 04/22/21 08:59 Triglycerides 80 mg/dL (2-149) 05/04/21 04:48 Cholesterol 90 mg/dL (50-199) 05/04/21 04:48 LDL Cholesterol Direct 51 mg/dL (50-130) 05/04/21 04:48 HDL Cholesterol 24 mg/dL (40-59) L 05/04/21 04:48 Cholesterol/HDL Ratio 3.75 % 05/04/21 04:48 Serotonin Release Assay See scanned result 04/24/21 17:29 TSH 6.040 mlU/mL (0.270-4.200) H 04/20/21 17:10 Free T4 0.93 ng/dL (0.76-1.46) 04/20/21 17:10 Arterial Blood Glucose 122 mg/dL (65-95) H 05/02/21 04:34 Arterial Blood Ionized Calcium 4.5 mg/dL (4.6-5.3) L 04/28/21 05:18 Urine Color Yellow (Yellow) 04/29/21 13:30 Urine Turbidity Turbid (Clear) 04/29/21 13:30 Urine pH 5.0 (5.0-7.0) 04/29/21 13:30 Ur Specific [place] 1.010 (1.003-1.030) 04/29/21 13:30 Urine Protein 100 mg/dl mg/dL (Negative) 04/29/21 13:30 Urine Glucose (UA) 150 mg/dL (Negative) 04/29/21 13:30 Urine Ketones Neg mg/dL (Negative) 04/29/21 13:30 Urine Blood Lg (Negative) 04/29/21 13:30 Urine Nitrite Neg (Negative) 04/29/21 13:30 Urine Bilirubin Neg (Negative) 04/29/21 13:30 Urine Urobilinogen < 2.0 mg/dL (<2.0) 04/29/21 13:30 Ur Leukocyte Esterase Lg (Negative) 04/29/21 13:30 Urine WBC (Auto) > 182.0 /HPF (0.0-6.0) H 04/29/21 13:30 Urine RBC (Auto) > 182.0 /HPF (0.0-6.0) 04/29/21 13:30 U Epithel Cells (Auto) 4.0 /HPF (0-13.0) 04/29/21 13:30 Urine WBC Clumps 3+ /HPF 04/29/21 13:30 Urine Mucus Few /HPF 04/29/21 13:30 Urine Yeast (Budding) 3+ /HPF 04/29/21 13:30 Urine Osmolality 446 Mosm/kg 04/21/21 08:01 Urine Total Volume 1700 ml 05/08/21 09:34 Urine Creatinine 56.0 mg/dL (0.1-20.0) H 05/08/21 09:34 Ur Creatinine 24 Hour 1.0 (0.8-2.8) 05/08/21 09:34 Urine Sodium 71 mmol/L 04/21/21 08:01 Urine Total Protein 12 mg/dL (5-11.8) H 04/21/21 08:01 CSF Appearance Clear 04/29/21 11:45 CSF Color Colorless 04/29/21 11:45 CSF WBC 14 /mm3 (1-10) 04/29/21 11:45 CSF RBC 324 /mm3 (0-0) 04/29/21 11:45 CSF Seg Neutrophils 50.0 % (0-6) 04/29/21 11:45 CSF Lymphocytes % 40.0 % (40-80) 04/29/21 11:45 CSF Reactive Lymphs Not Reportable 04/29/21 11:45 CSF Monocytes % 10.0 % (15-45) 04/29/21 11:45 CSF Eosinophils % Not Reportable 04/29/21 11:45 CSF Basophils Not Reportable 04/29/21 11:45 CSF Pathologist Review C 04/29/21 11:45 CSF Glucose 161 mg/dL 04/29/21 11:45 CSF Total Protein 51 mg/dL 04/29/21 11:45 Plasma/Serum Alcohol < 0.01 % (0-0.07) 04/20/21 17:10 Heparin-induced Plt Ab Negative (Negative) 04/24/21 17:29 UF Heparin High Dose 1 % Release 04/24/21 17:29 EFE UFH Low Dose 0.1 0 % Release 04/24/21 17:29 EFE UFH Low Dose 0.5 0 % Release 04/24/21 17:29 Coronavirus (PCR) Negative (Negative) 04/21/21 Unknown Hepatitis A IgM Ab Non-reactive (NonReactive) 04/27/21 12:49 Hep Bs Antigen Nonreactive (Negative) 04/27/21 12:49 Hep B Core IgM Ab Non-reactive (NonReactive) 04/27/21 12:49 Hepatitis C Antibody Non-reactive (NonReactive) 04/27/21 12:49 Blood Type O POSITIVE 05/02/21 12:00 Antibody Screen Negative 05/02/21 12:00 Crossmatch See Detail 05/02/21 12:00 Microbiology: Microbiology 05/02/21 Unknown Urine,Catheterized - Indwelling Catheter Urine Culture - Final Roselyn Tropicalis Luther/IV: Voiding Method Indwelling Catheter Active Medications - Current Medications Current Medications: Generic Name Dose Route Start Last Admin Trade Name Freq PRN Reason Stop Dose Admin Acetaminophen 650 mg 04/20/21 21:31 05/14/21 09:50 Acetaminophen 325 Mg Tab PO 650 mg Q4H PRN Administration Pain MILD(1-3)/Fever >100.5/TURCIOS Albumin Human 25 gm 05/06/21 16:06 05/06/21 16:21 Albumin Human 25% (25 Gm/100 Ml) Inj IV 25 gm MITCH PRN Administration Hypotension Albuterol 2.5 mg 04/22/21 14:49 04/23/21 15:18 Albuterol 2.5 Mg/3 Ml Nebu IH 2.5 mg Q4HRT PRN Administration Shortness Of Breath Amlodipine Besylate 5 mg 05/12/21 10:00 05/14/21 09:49 Amlodipine 5 Mg Tab PO 5 mg QDAY AZIZA Administration Lipase/Protease/Amylase 1 each 04/25/21 14:13 Lipase 10,500/Protease 25,000/Amylase 43,750 (Units) Dr Vasquez FEEDTUBE PRN PRN For Clogged Feeding Tube Aspirin 81 mg 05/04/21 10:00 05/14/21 09:50 Aspirin 81 Mg Tab Chew FEEDTUBE 81 mg QDAY AZIZA Administration Atorvastatin Calcium 40 mg 05/04/21 22:00 05/13/21 21:39 Atorvastatin 40 Mg Tab FEEDTUBE 40 mg QHS AZIZA Administration Dextrose 50 ml 04/24/21 11:36 Dextrose 50% In Water (25gm) 50 Ml Syringe IV Q30MIN PRN Hypoglycemia Protocol Famotidine 10 mg 04/27/21 10:00 05/14/21 09:50 Famotidine 10 Mg Tab FEEDTUBE 10 mg BID AZIZA Administration Heparin Sodium (Porcine) 5,000 unit 05/10/21 22:00 05/14/21 09:50 Heparin 5,000 Unit/1 Ml Vial SUB-Q 5,000 unit Q12HR AZIZA Administration Hydrophilic Ointment 1 applic 04/26/21 11:16 Lip Therapy Vaseline TP Q2HR PRN Dry Lips Sodium Chloride 1,000 mls @ 100 mls/hr 05/14/21 08:30 05/14/21 09:53 Nacl 0.9% 1000 Ml IV 05/14/21 18:29 100 mls/hr DIRECT AZIZA Administration Insulin Human Lispro 0 unit 04/25/21 18:00 05/14/21 12:05 Insulin Lispro 100 Unit/Ml SUB-Q 4 unit Q6HR AZIZA Administration Protocol Labetalol HCl 20 mg 05/12/21 11:34 05/12/21 21:35 Labetalol 20 Mg/4 Ml Inj IV 20 mg Q4H PRN Administration SBP >/=170 Levothyroxine Sodium 50 mcg 05/03/21 06:00 05/14/21 05:27 Levothyroxine 50 Mcg Tab PO 50 mcg DAILY@0600 AZIZA Administration Lorazepam 1 mg 04/26/21 11:15 05/12/21 16:27 Lorazepam 2 Mg/Ml Vial IV 1 mg Q4H PRN Administration Sedation Metoclopramide HCl 5 mg 04/20/21 21:31 Metoclopramide 10 Mg/2 Ml Inj IV Q6H PRN Nausea And Vomiting Multi-Ingred Cream/Lotion/Oil/Oint 1 applic 04/26/21 11:16 Mineral Oil/Petrolatum, White Ophth Oint 3.5 Gm OU Q4HR PRN Dry Eye(s) Ondansetron HCl 4 mg 04/20/21 21:31 Ondansetron 4 Mg/2 Ml Inj IV Q8H PRN Nausea And Vomiting Senna/Docusate Sodium 1 tab 04/26/21 22:00 05/14/21 09:50 Sennosides/Docusate Sodium 8.6/50 Mg Tab FEEDTUBE 1 tab BID AZIZA Administration Simple Syrup 15 ml 04/25/21 14:13 Simple Syrup 15 Ml FEEDTUBE PRN PRN Hypoglycemia Simple Syrup 30 ml 04/25/21 14:13 Simple Syrup 15 Ml FEEDTUBE PRN PRN Hypoglycemia Sodium Bicarbonate 325 mg 04/25/21 14:13 04/27/21 13:00 Sodium Bicarbonate 325 Mg Tab FEEDTUBE 325 mg PRN PRN Administration For Clogged Feeding Tube Sodium Bicarbonate 1,300 mg 04/27/21 14:00 05/14/21 08:48 Sodium Bicarbonate 650 Mg Tab PO 1,300 mg TID AZIZA Administration Sodium Chloride 10 ml 04/20/21 22:00 05/14/21 09:51 Sodium Chloride 0.9% 10 Ml Flush Syringe IV 10 ml BID AZIZA Administration Sodium Chloride 10 ml 04/20/21 21:31 Sodium Chloride 0.9% 10 Ml Flush Syringe IV PRN PRN LINE FLUSH Nutrition/Malnutrition Assess - Dietary Evaluation Nutrition/Malnutrition Findings: Nutrition Notes Start: 04/21/21 12:15 Freq: Status: Active Protocol: Document 05/13/21 15:36 TAMMY (Rec: 05/13/21 15:47 TAMMY [id number]) Nutrition Notes Initial or Follow up Reassessment Current Diagnosis Sepsis,Respiratory Failure, Stroke Other Pertinent Diagnosis Acute metabolic encephalopathy , pneu, UTI Current Diet NPO Labs/Tests BUN 30 Mg 1.6 Pertinent Medications Mag sulfate x 1 dose Height 5 ft 2 in Weight 72.4 kg [place] Body Weight (kg) 50.00 BMI 29.2 Weight Status Overweight Subjective/Other Information Pt remains on vent support. TF off; pt scheduled for trach and PEG placement today. Unable to place PEG sec to suspected anatomical abnormality. Interventional radiology consulted for PEG placement. Per nephrology, SYED resolving; no indication for HD as VasCath has been removed. Minimum of two criteria No #1 Nutrition Diagnosis Inadequate oral intake Diagnosis Progress(for reassessment Continues documentation) Is patient on ventilator? Yes Is Patient Ambulatory and/or Out of Bed No REE-([facility]-confined to bed) 4299.420 Calculation Used for Recommendations [facility] Additional Notes Pro needs 1.2-2g/k-145g/ day Fluid needs 1ml/kcal Nutrition Intervention Nutrition Support: When feasible, resume TF, but change formula to Glucerna 1.2 at 50ml/hr with 80ml water flush q4h. Goal #1 Resume TF to meet nutrient needs Follow-Up By: 05/16/21 Additional Comments F/U: PEG placement, TF restart with Glucerna 1.2, vent status
--- NOTE | 2021-05-12 16:13 | Progress Note ---
Assessment and Plan (1) Acute metabolic encephalopathy (2) Diabetic hyperosmolar non-ketotic state 3) SYED (acute kidney injury) (4) Dehydration (5) Hypernatremia (6) Rhabdomyolysis (7) Hypernatremia 8) GERD (gastroesophageal reflux disease) (9) Metabolic acidosis (10) Leukocytosis SYED is resolving no indication for HD, vascath removed 05/11 will check 24 hours creatinine clearance-~30 ml/min Na is improving, cont water flushes renally dose meds Strict I&O Subjective Date of service: 05/12/21 Principal diagnosis: Acute respiratory failure Interval history: intubated Objective - Vital Signs Vital signs: Vital Signs - 12hr 05/12/21 05/12/21 05/12/21 04:30 05:00 05:30 Temperature Pulse Rate 95 H 101 H 84 Pulse Rate [ From Monitor] Respiratory 22 13 14 Rate Blood Pressure 165/80 184/83 156/60 O2 Sat by Pulse 98 98 97 Oximetry 05/12/21 05/12/21 05/12/21 06:00 06:30 07:00 Temperature Pulse Rate 85 88 80 Pulse Rate [ From Monitor] Respiratory 14 14 14 Rate Blood Pressure 158/62 170/70 157/55 O2 Sat by Pulse 97 99 98 Oximetry 05/12/21 05/12/21 05/12/21 07:30 08:00 08:15 Temperature 97.5 F L Pulse Rate 78 80 78 Pulse Rate [ 80 From Monitor] Respiratory 14 14 Rate Blood Pressure 155/55 160/58 160/58 O2 Sat by Pulse 98 98 98 Oximetry 05/12/21 05/12/21 05/12/21 08:30 09:00 09:31 Temperature Pulse Rate 81 87 85 Pulse Rate [ From Monitor] Respiratory 14 23 16 Rate Blood Pressure 183/73 187/72 146/69 O2 Sat by Pulse 98 98 98 Oximetry 05/12/21 05/12/21 05/12/21 09:57 10:01 10:31 Temperature Pulse Rate 86 85 79 Pulse Rate [ From Monitor] Respiratory 12 14 Rate Blood Pressure 146/69 185/62 174/58 O2 Sat by Pulse 97 97 Oximetry 05/12/21 05/12/21 05/12/21 11:00 11:24 11:31 Temperature Pulse Rate 86 85 87 Pulse Rate [ From Monitor] Respiratory 14 15 Rate Blood Pressure 193/89 199/98 O2 Sat by Pulse 99 97 98 Oximetry 05/12/21 05/12/21 05/12/21 12:00 12:01 12:16 Temperature 97.7 F Pulse Rate 88 88 88 Pulse Rate [ From Monitor] Respiratory 15 Rate Blood Pressure 215/96 230/59 O2 Sat by Pulse 97 Oximetry 05/12/21 15:51 Temperature Pulse Rate 85 Pulse Rate [ From Monitor] Respiratory Rate Blood Pressure 187/85 O2 Sat by Pulse 98 Oximetry - Lab 05/12/21 04:10 05/12/21 04:10 Most recent lab results ABG pH 7.487 (7.320-7.450) H 05/02/21 04:34 ABG pCO2 31.6 mm Hg 04/21/21 15:47 ABG pO2 168.1 mm Hg (80.0-90.0) H 04/21/21 15:47 ABG HCO3 23.3 mmol/L (20.0-26.0) 04/21/21 15:47 ABG O2 Saturation 96.0 (0-100) 05/02/21 04:34 Calcium 8.3 mg/dL (8.4-10.2) L 05/12/21 04:10 Phosphorus 2.90 mg/dL (2.5-4.5) 05/11/21 05:40 Magnesium 2.00 mg/dL (1.7-2.3) 05/11/21 05:40 Urine Creatinine 56.0 mg/dL (0.1-20.0) H 05/08/21 09:34 Urine Sodium 71 mmol/L 04/21/21 08:01 Urine Total Protein 12 mg/dL (5-11.8) H 04/21/21 08:01 Medications & Allergies - Medications Allergies/Adverse Reactions: Allergies No Known Allergies Allergy (Unverified 04/20/21 14:35) Active Medications: Generic Name Dose Route Start Last Admin Trade Name Freq PRN Reason Stop Dose Admin Acetaminophen 650 mg 04/20/21 21:31 05/01/21 18:15 Acetaminophen 325 Mg Tab PO 650 mg Q4H PRN Administration Pain MILD(1-3)/Fever >100.5/TURCIOS Albumin Human 25 gm 05/06/21 16:06 05/06/21 16:21 Albumin Human 25% (25 Gm/100 Ml) Inj IV 25 gm MITCH PRN Administration Hypotension Albuterol 2.5 mg 04/22/21 14:49 04/23/21 15:18 Albuterol 2.5 Mg/3 Ml Nebu IH 2.5 mg Q4HRT PRN Administration Shortness Of Breath Amlodipine Besylate 5 mg 05/12/21 10:00 05/12/21 09:57 Amlodipine 5 Mg Tab PO 5 mg QDAY AZIZA Administration Lipase/Protease/Amylase 1 each 04/25/21 14:13 Lipase 10,500/Protease 25,000/Amylase 43,750 (Units) Dr Vasquez FEEDTUBE PRN PRN For Clogged Feeding Tube Aspirin 81 mg 05/04/21 10:00 05/12/21 09:57 Aspirin 81 Mg Tab Chew FEEDTUBE 81 mg QDAY AZIZA Administration Atorvastatin Calcium 40 mg 05/04/21 22:00 05/11/21 21:07 Atorvastatin 40 Mg Tab FEEDTUBE 40 mg QHS AZIZA Administration Dextrose 50 ml 04/24/21 11:36 Dextrose 50% In Water (25gm) 50 Ml Syringe IV Q30MIN PRN Hypoglycemia Protocol Famotidine 10 mg 04/27/21 10:00 05/12/21 09:57 Famotidine 10 Mg Tab FEEDTUBE 10 mg BID AZIZA Administration Heparin Sodium (Porcine) 5,000 unit 05/10/21 22:00 05/12/21 09:56 Heparin 5,000 Unit/1 Ml Vial SUB-Q 5,000 unit Q12HR AZIZA Administration Hydrophilic Ointment 1 applic 04/26/21 11:16 Lip Therapy Vaseline TP Q2HR PRN Dry Lips Insulin Human Lispro 0 unit 04/25/21 18:00 05/12/21 05:49 Insulin Lispro 100 Unit/Ml SUB-Q 3 unit Q6HR AZIZA Administration Protocol Labetalol HCl 20 mg 05/12/21 11:34 05/12/21 12:16 Labetalol 20 Mg/4 Ml Inj IV 20 mg Q4H PRN Administration SBP >/=170 Levothyroxine Sodium 50 mcg 05/03/21 06:00 05/12/21 05:50 Levothyroxine 50 Mcg Tab PO 50 mcg DAILY@0600 AZIZA Administration Lorazepam 1 mg 04/26/21 11:15 05/12/21 09:56 Lorazepam 2 Mg/Ml Vial IV 1 mg Q4H PRN Administration Sedation Metoclopramide HCl 5 mg 04/20/21 21:31 Metoclopramide 10 Mg/2 Ml Inj IV Q6H PRN Nausea And Vomiting Multi-Ingred Cream/Lotion/Oil/Oint 1 applic 04/26/21 11:16 Mineral Oil/Petrolatum, White Ophth Oint 3.5 Gm OU Q4HR PRN Dry Eye(s) Ondansetron HCl 4 mg 04/20/21 21:31 Ondansetron 4 Mg/2 Ml Inj IV Q8H PRN Nausea And Vomiting Senna/Docusate Sodium 1 tab 04/26/21 22:00 05/12/21 09:57 Sennosides/Docusate Sodium 8.6/50 Mg Tab FEEDTUBE 1 tab BID AZIZA Administration Simple Syrup 15 ml 04/25/21 14:13 Simple Syrup 15 Ml FEEDTUBE PRN PRN Hypoglycemia Simple Syrup 30 ml 04/25/21 14:13 Simple Syrup 15 Ml FEEDTUBE PRN PRN Hypoglycemia Sodium Bicarbonate 325 mg 04/25/21 14:13 04/27/21 13:00 Sodium Bicarbonate 325 Mg Tab FEEDTUBE 325 mg PRN PRN Administration For Clogged Feeding Tube Sodium Bicarbonate 1,300 mg 04/27/21 14:00 05/12/21 08:57 Sodium Bicarbonate 650 Mg Tab PO 1,300 mg TID AZIZA Administration Sodium Chloride 10 ml 04/20/21 22:00 05/12/21 09:58 Sodium Chloride 0.9% 10 Ml Flush Syringe IV 10 ml BID AZIZA Administration Sodium Chloride 10 ml 04/20/21 21:31 Sodium Chloride 0.9% 10 Ml Flush Syringe IV PRN PRN LINE FLUSH
[2021-05-13] MEDS: FREE WATER PO SCH (05:11)
[2021-05-13] MEDS: LEVOTHYROXINE 50 MCG TAB PO SCH (05:11)
[2021-05-13 05:27] LABS: Hematocrit 26.3 % (30.3-42.9); Hemoglobin 8.5 gm/dl (10.1-14.3); Mean Corpuscular HGB Conc 32 % (30-34); Mean Corpuscular Volume 85 fl (79-97); Platelet Count 503 K/mm3 (140-440); Red Cell Distribution Width 15.6 % (13.2-15.2)
[2021-05-13 05:31] LABS: Calcium 8.3 mg/dL (8.4-10.2)
[2021-05-13] MEDS: INSULIN LISPRO 100 UNIT/ML SUB-Q SCH ×3 (05:31→23:36)
[2021-05-13 05:33] LABS: INR 1.04 (0.87-1.13)
[2021-05-13] MEDS ORDERED: MAGNESIUM SULFATE 4 GM/100 ML BAG IV SCH (09:00)
--- NOTE | 2021-05-13 09:22 | Progress Note ---
Assessment and Plan (1) Acute metabolic encephalopathy (2) Diabetic hyperosmolar non-ketotic state 3) SYED (acute kidney injury) (4) Dehydration (5) Hypernatremia (6) Rhabdomyolysis (7) Hypernatremia 8) GERD (gastroesophageal reflux disease) (9) Metabolic acidosis (10) Leukocytosis SYED has resolved, good UOP no indication for HD, vascath removed 05/11 24 hours creatinine clearance-~30 ml/min Hypernatremia has resolved renally dose meds Strict I&O Will sign off. Please re-consult if needed Subjective Date of service: 05/13/21 Principal diagnosis: Acute respiratory failure Interval history: no overnight events were reported Objective - Vital Signs Vital signs: Vital Signs - 12hr 05/12/21 05/12/21 05/12/21 21:31 21:35 22:01 Temperature Pulse Rate 99 H 96 H 95 H Pulse Rate [ From Monitor] Respiratory 23 26 H Rate Blood Pressure 216/40 216/40 144/59 O2 Sat by Pulse 97 98 Oximetry 05/12/21 05/12/21 05/12/21 22:30 23:00 23:30 Temperature Pulse Rate 94 H 95 H 96 H Pulse Rate [ From Monitor] Respiratory 17 29 H 18 Rate Blood Pressure 142/55 143/57 163/68 O2 Sat by Pulse 98 98 98 Oximetry 05/12/21 05/12/21 05/13/21 23:33 23:46 00:00 Temperature 99.9 F H Pulse Rate 98 H 98 H Pulse Rate [ 99 H From Monitor] Respiratory 29 H Rate Blood Pressure 157/68 O2 Sat by Pulse 98 Oximetry 05/13/21 05/13/21 05/13/21 00:03 00:30 01:00 Temperature Pulse Rate 99 H 98 H 98 H Pulse Rate [ From Monitor] Respiratory 23 26 H 25 H Rate Blood Pressure 157/68 172/61 154/66 O2 Sat by Pulse 98 99 98 Oximetry 05/13/21 05/13/21 05/13/21 01:30 02:00 02:30 Temperature Pulse Rate 96 H 95 H 94 H Pulse Rate [ From Monitor] Respiratory 16 16 19 Rate Blood Pressure 143/66 157/72 152/68 O2 Sat by Pulse 98 98 98 Oximetry 05/13/21 05/13/21 05/13/21 03:00 03:11 03:30 Temperature 99.8 F H Pulse Rate 94 H 94 H Pulse Rate [ From Monitor] Respiratory 17 26 H Rate Blood Pressure 163/69 149/70 O2 Sat by Pulse 98 98 Oximetry 05/13/21 05/13/21 05/13/21 04:00 04:31 05:00 Temperature Pulse Rate 93 H 99 H 91 H Pulse Rate [ 90 From Monitor] Respiratory 16 22 15 Rate Blood Pressure 146/70 146/70 145/70 O2 Sat by Pulse 98 99 97 Oximetry 05/13/21 05/13/21 05/13/21 05:10 05:30 06:01 Temperature Pulse Rate 93 H 96 H 97 H Pulse Rate [ From Monitor] Respiratory 20 24 Rate Blood Pressure 145/70 144/75 155/72 O2 Sat by Pulse 98 98 98 Oximetry 05/13/21 05/13/21 05/13/21 06:31 07:00 07:24 Temperature 98.5 F Pulse Rate 97 H 96 H Pulse Rate [ From Monitor] Respiratory 19 21 Rate Blood Pressure 149/77 152/77 O2 Sat by Pulse 98 98 Oximetry 05/13/21 05/13/21 05/13/21 07:30 08:00 08:30 Temperature Pulse Rate 97 H 96 H 104 H Pulse Rate [ From Monitor] Respiratory 18 20 20 Rate Blood Pressure 165/76 150/69 172/79 O2 Sat by Pulse 98 98 100 Oximetry 05/13/21 09:01 Temperature Pulse Rate 93 H Pulse Rate [ From Monitor] Respiratory 14 Rate Blood Pressure 128/54 O2 Sat by Pulse 98 Oximetry - Lab 05/13/21 04:24 05/13/21 04:24 Most recent lab results ABG pH 7.487 (7.320-7.450) H 05/02/21 04:34 ABG pCO2 31.6 mm Hg 04/21/21 15:47 ABG pO2 168.1 mm Hg (80.0-90.0) H 04/21/21 15:47 ABG HCO3 23.3 mmol/L (20.0-26.0) 04/21/21 15:47 ABG O2 Saturation 96.0 (0-100) 05/02/21 04:34 Calcium 8.3 mg/dL (8.4-10.2) L 05/13/21 04:24 Phosphorus 3.70 mg/dL (2.5-4.5) 05/13/21 04:24 Magnesium 1.60 mg/dL (1.7-2.3) L 05/13/21 04:24 Urine Creatinine 56.0 mg/dL (0.1-20.0) H 05/08/21 09:34 Urine Sodium 71 mmol/L 04/21/21 08:01 Urine Total Protein 12 mg/dL (5-11.8) H 04/21/21 08:01 Medications & Allergies - Medications Allergies/Adverse Reactions: Allergies No Known Allergies Allergy (Unverified 04/20/21 14:35) Active Medications: Generic Name Dose Route Start Last Admin Trade Name Freq PRN Reason Stop Dose Admin Acetaminophen 650 mg 04/20/21 21:31 05/01/21 18:15 Acetaminophen 325 Mg Tab PO 650 mg Q4H PRN Administration Pain MILD(1-3)/Fever >100.5/TURCIOS Albumin Human 25 gm 05/06/21 16:06 05/06/21 16:21 Albumin Human 25% (25 Gm/100 Ml) Inj IV 25 gm MITCH PRN Administration Hypotension Albuterol 2.5 mg 04/22/21 14:49 04/23/21 15:18 Albuterol 2.5 Mg/3 Ml Nebu IH 2.5 mg Q4HRT PRN Administration Shortness Of Breath Amlodipine Besylate 5 mg 05/12/21 10:00 05/12/21 09:57 Amlodipine 5 Mg Tab PO 5 mg QDAY AZIZA Administration Lipase/Protease/Amylase 1 each 04/25/21 14:13 Lipase 10,500/Protease 25,000/Amylase 43,750 (Units) Dr Vasquez FEEDTUBE PRN PRN For Clogged Feeding Tube Aspirin 81 mg 05/04/21 10:00 05/12/21 09:57 Aspirin 81 Mg Tab Chew FEEDTUBE 81 mg QDAY AZIZA Administration Atorvastatin Calcium 40 mg 05/04/21 22:00 05/12/21 21:46 Atorvastatin 40 Mg Tab FEEDTUBE 40 mg QHS AZIZA Administration Dextrose 50 ml 04/24/21 11:36 Dextrose 50% In Water (25gm) 50 Ml Syringe IV Q30MIN PRN Hypoglycemia Protocol Famotidine 10 mg 04/27/21 10:00 05/12/21 21:46 Famotidine 10 Mg Tab FEEDTUBE 10 mg BID AZIZA Administration Heparin Sodium (Porcine) 5,000 unit 05/10/21 22:00 05/12/21 21:46 Heparin 5,000 Unit/1 Ml Vial SUB-Q 5,000 unit Q12HR [facility] Administration Hydrophilic Ointment 1 applic 04/26/21 11:16 Lip Therapy Vaseline TP Q2HR PRN Dry Lips Magnesium Sulfate 4 gm in 100 mls @ 25 mls/hr 05/13/21 09:00 Magnesium Sulfate 4gm/100ml IV 05/13/21 13:00 ONCE@0900 [facility] Insulin Human Lispro 0 unit 04/25/21 18:00 05/13/21 05:31 Insulin Lispro 100 Unit/Ml SUB-Q Not Given Q6HR [facility] Protocol Labetalol HCl 20 mg 05/12/21 11:34 05/12/21 21:35 Labetalol 20 Mg/4 Ml Inj IV 20 mg Q4H PRN Administration SBP >/=170 Levothyroxine Sodium 50 mcg 05/03/21 06:00 05/13/21 05:11 Levothyroxine 50 Mcg Tab PO Not Given DAILY@0600 [facility] Lorazepam 1 mg 04/26/21 11:15 05/12/21 16:27 Lorazepam 2 Mg/Ml Vial IV 1 mg Q4H PRN Administration Sedation Metoclopramide HCl 5 mg 04/20/21 21:31 Metoclopramide 10 Mg/2 Ml Inj IV Q6H PRN Nausea And Vomiting Multi-Ingred Cream/Lotion/Oil/Oint 1 applic 04/26/21 11:16 Mineral Oil/Petrolatum, White Ophth Oint 3.5 Gm OU Q4HR PRN Dry Eye(s) Ondansetron HCl 4 mg 04/20/21 21:31 Ondansetron 4 Mg/2 Ml Inj IV Q8H PRN Nausea And Vomiting Senna/Docusate Sodium 1 tab 04/26/21 22:00 05/12/21 21:46 Sennosides/Docusate Sodium 8.6/50 Mg Tab FEEDTUBE 1 tab BID AZIZA Administration Simple Syrup 15 ml 04/25/21 14:13 Simple Syrup 15 Ml FEEDTUBE PRN PRN Hypoglycemia Simple Syrup 30 ml 04/25/21 14:13 Simple Syrup 15 Ml FEEDTUBE PRN PRN Hypoglycemia Sodium Bicarbonate 325 mg 04/25/21 14:13 04/27/21 13:00 Sodium Bicarbonate 325 Mg Tab FEEDTUBE 325 mg PRN PRN Administration For Clogged Feeding Tube Sodium Bicarbonate 1,300 mg 04/27/21 14:00 05/12/21 20:26 Sodium Bicarbonate 650 Mg Tab PO 1,300 mg TID AZIZA Administration Sodium Chloride 10 ml 04/20/21 22:00 05/12/21 21:46 Sodium Chloride 0.9% 10 Ml Flush Syringe IV 10 ml BID AZIZA Administration Sodium Chloride 10 ml 04/20/21 21:31 Sodium Chloride 0.9% 10 Ml Flush Syringe IV PRN PRN LINE FLUSH
[2021-05-13] MEDS: SENNOSIDES/DOCUSATE SODIUM 8.6/50 MG TAB FEEDTUBE SCH ×2 (09:51→21:39)
[2021-05-13] MEDS: SODIUM BICARBONATE 650 MG TAB PO SCH ×3 (09:52→21:38)
[2021-05-13] MEDS: amLODIPine 5 MG TAB PO SCH (09:52)
[2021-05-13] MEDS: ASPIRIN 81 MG TAB CHEW FEEDTUBE SCH (09:52)
[2021-05-13] MEDS: FAMOTIDINE 10 MG TAB FEEDTUBE SCH ×2 (09:52→21:39)
[2021-05-13] MEDS: HEPARIN 5,000 UNIT/1 ML VIAL SUB-Q SCH ×2 (09:59→21:38)
[2021-05-13] MEDS ORDERED: LIDOCAINE (1%) 10 MG/1 ML VIAL 20 ML MDV ONE (11:00)
[2021-05-13] MEDS ORDERED: LIDOCAINE 2%/EPINEPHRINE 1:200,000 VIAL (20 ML) INFILTRATI ONE (11:00)
--- NOTE | 2021-05-13 11:03 | Progress Note ---
Assessment and Plan 80 y/o female with altered mental state, severe electrolyte imbalance with presumptive acute renal failure and hypothermia. 05/13/21: Trach today. Per CM transfer to LTACH tomorrow. Supportive care 05/12/21: Daily PSV trials. NPO after midnight and chemistry in am. Trach tomorrow and then transfer over the weekend if all goes well. 05/11/21: Awaiting trach and peg placement. Discontinue vascath. Daily pSV trials. 05/10/21: Long discussion over phone with POA. Discussed what I felt was prognosis. Per POA, feels best thing to do at this moment is proceed with trach and peg. Will consult surgery for this. Spoke with renal and they feel she likely will not need HD anymore. Will keep catheter at least another 24-36 ho urs and likely remove sometime tomorrow. Continue daily PSV and other supportive measures. Placement post Trach. 05/09/21: Will reach out to neuro for more help. Read their note this am but need a definite plan. Would like to meet/talk with POA about next steps but need a better idea of what her neuro prognosis is. Continue daily PSV trials. Prognosis overall appears to be very guarded to poor. 05/08/21: Continue supportive measures. HD per renal. Follow up neuro recs tomorrow. Need to start talking with family about next steps but need neuro input. Daily pSV to document failing. 05/07/21: Continue supportive measures. HD per renal. Follow up neuro recs tomorrow. Need to start talking with family about next steps but need neuro input. 05/06/21: Await neurology recs now that LINCOLN Could not be done. Based on neurology note, no direct source for stroke on MRA. Patient was seen on this day and can be confirmed by staff. Not sure why my note did not save. 05/05/21: follow up neurology notes. They are discussing with cards the LINCOLN. Continue vent support. Poor prognosis. 05/04/21: follow up MRA when done. LINCOLN pending. HD per renal. Daily PSV trials as tolerated. Poor prognosis given MRI findings and lack of responsiveness off sedation. 05/03/21: Follow up Neurology recs for today. Attempt PSV trials. HD on yesterday. Very very guarded prognosis. 05/02/21: MRI today. Repeat cultures. HD per renal. Once MRI results back will discuss with Neurosurgery to see if anything further should be done. Abx per ID. Overall prognosis is very guarded to poor. 04/29/21: Will reach out to neuro after 24-48 hours post spinal tap pending any change in mentation. If improvement, may need to consider shunt placement. If not, not sure that there is anything they can offer. if they still want MRI, then can obtain. Now spiking temps. Blood cultures and UA. Given time frame in Hospital will place on Vanc and Cefepime. Guarded prognosis. HD per renal. Given anasarca, will ask renal about trying to remove volume. 04/28/21: Will discuss with renal about HD again today. MRI vs LP (large amount). Coags are ok. Will attempt to get at least one of these done today. Patient is still on 80% but sat is 100. Will ask [facility] [facility]ER about placing ART line today. Wean FiO2 as tolerated. Guarded prognosis. 04/27/21: HD today per renal. Vascath placed and awaiting CXR for conformation of good placement (done and good). Vent weaning as tolerated for sats >88%. ABG in the AM. Will check Coags in the am and hopeful these are stable. Platelets need to above 50K. Would like to do large volume spinal tap to see if this helps with mentation. Will also obtain MRI once oxygen requirement improves. 04/26/21: WIll electively intubate and then obtain MRI. Pending MRI results, will likely order large volume spinal tap to assess if NPH is a factor or not. Guarded prognosis. Electrolytes are improving. 04/25/21: Continue to follow renal recs. Will reach out to POA either today or tomorrow for further updates. Follow up renal recs. Monitor electrolytes and renal function. Guarded prognosis. 1. Neuro-reached out to neuro surgery, placed consult in regards to CT findings 2. Renal-appreciate help and recs, will follow IV hydration recommendations 3. Blood cultures. Urine was negative 4. Jorge Freidaer for temp Guarded prognosis CCT 31 minutes. Subjective Date of service: 05/13/21 Principal diagnosis: Acute respiratory failure Interval history: No acute events. Stable pulm status. Objective Vital Signs - 12hr 0105/12/21 05/12/21 23:30 23:33 23:46 Temperature 99.9 F H Pulse Rate 96 H 98 H Pulse Rate [ From Monitor] Respiratory 18 Rate Blood Pressure 163/68 O2 Sat by Pulse 98 Oximetry 05/13/21 05/13/21 05/13/21 00:00 00:03 00:30 Temperature Pulse Rate 98 H 99 H 98 H Pulse Rate [ 99 H From Monitor] Respiratory 29 H 23 26 H Rate Blood Pressure 157/68 157/68 172/61 O2 Sat by Pulse 98 98 99 Oximetry 05/13/21 05/13/21 05/13/21 01:00 01:30 02:00 Temperature Pulse Rate 98 H 96 H 95 H Pulse Rate [ From Monitor] Respiratory 25 H 16 16 Rate Blood Pressure 154/66 143/66 157/72 O2 Sat by Pulse 98 98 98 Oximetry 05/13/21 05/13/21 05/13/21 02:30 03:00 03:11 Temperature 99.8 F H Pulse Rate 94 H 94 H Pulse Rate [ From Monitor] Respiratory 19 17 Rate Blood Pressure 152/68 163/69 O2 Sat by Pulse 98 98 Oximetry 05/13/21 05/13/21 05/13/21 03:30 04:00 04:31 Temperature Pulse Rate 94 H 93 H 99 H Pulse Rate [ 90 From Monitor] Respiratory 26 H 16 22 Rate Blood Pressure 149/70 146/70 146/70 O2 Sat by Pulse 98 98 99 Oximetry 05/13/21 05/13/21 05/13/21 05:00 05:10 05:30 Temperature Pulse Rate 91 H 93 H 96 H Pulse Rate [ From Monitor] Respiratory 15 20 Rate Blood Pressure 145/70 145/70 144/75 O2 Sat by Pulse 97 98 98 Oximetry 05/13/21 05/13/21 05/13/21 06:01 06:31 07:00 Temperature Pulse Rate 97 H 97 H 96 H Pulse Rate [ From Monitor] Respiratory 24 19 21 Rate Blood Pressure 155/72 149/77 152/77 O2 Sat by Pulse 98 98 98 Oximetry 05/13/21 05/13/21 05/13/21 07:24 07:30 08:00 Temperature 98.5 F Pulse Rate 97 H 93 H Pulse Rate [ 93 H From Monitor] Respiratory 18 14 Rate Blood Pressure 165/76 150/69 O2 Sat by Pulse 98 100 Oximetry 05/13/21 05/13/21 08:30 09:01 Temperature Pulse Rate 104 H 93 H Pulse Rate [ From Monitor] Respiratory 20 14 Rate Blood Pressure 172/79 128/54 O2 Sat by Pulse 100 98 Oximetry Constitutional: other (critically ill, somnolent, on vent) Eyes: non-icteric ENT: oropharynx dry Effort: other (tachypneic but not labored) Ascultation: Bilateral: clear Cardiovascular: regular rate and rhythm Gastrointestinal: normoactive bowel sounds Integumentary: normal Extremities: no cyanosis, no edema, pink and warm Neurologic: unable to assess Psychiatric: other (unable to assess) CBC and BMP: 05/13/21 04:24 05/13/21 04:24 ABG, PT/INR, D-dimer: ABG ABG pH 7.487 (7.320-7.450) H 05/02/21 04:34 POC ABG pCO2 35.3 mmHg (32.0-48.0) 05/02/21 04:34 ABG pCO2 31.6 mm Hg 04/21/21 15:47 POC ABG pO2 78.6 mmHg (83-108) L 05/02/21 04:34 ABG pO2 168.1 mm Hg (80.0-90.0) H 04/21/21 15:47 POC ABG HCO3 26.1 05/02/21 04:34 ABG O2 Saturation 96.0 (0-100) 05/02/21 04:34 PT/INR, D-dimer PT 14.7 Sec. (12.2-14.9) 05/13/21 04:24 INR 1.04 (0.87-1.13) 05/13/21 04:24 Abnormal lab findings: Abnormal Labs 04/20/21 04/20/21 04/20/21 17:10 17:10 17:10 WBC 17.4 H RBC 5.19 H Hgb Hct 46.8 H MCH 27 L RDW 17.2 H Plt Count Seg Neuts % (Manual) 98.0 H Lymphocytes % (Manual) 2.0 L Nucleated RBC % 1.0 H Seg Neutrophils # Man 17.1 H Lymphocytes # (Manual) 0.3 L PT ABG pH POC ABG pCO2 POC ABG pO2 ABG pO2 ABG O2 Saturation ABG Base Excess ABG Hemoglobin ABG Oxyhemoglobin ABG Potassium ABG Chloride ABG Glucose Oxyhemoglobin Carboxyhemoglobin Sodium 173 H* Potassium Chloride 132.9 H Carbon Dioxide 17 L BUN 120 H Creatinine 4.2 H Glucose 762 H* POC Glucose Hemoglobin A1c Lactic Acid Calcium Phosphorus Magnesium 3.80 H Transferrin AST 72 H ALT 63 H Alkaline Phosphatase 148 H Total Creatine Kinase 3697 H CK-MB (CK-2) 36.0 H Serum Total Protein Total Protein Albumin 2.2 L Vjrsh-0-Cugalcoem Yjlov-9-Qmugjlpoa Gamma Globulins PEP Interpretation HDL Cholesterol TSH Arterial Blood Glucose Arterial Blood Ionized Calcium Urine WBC (Auto) Urine Creatinine Urine Total Protein Crossmatch 04/20/21 04/20/21 04/20/21 17:10 17:10 18:55 WBC RBC Hgb Hct MCH RDW Plt Count Seg Neuts % (Manual) Lymphocytes % (Manual) Nucleated RBC % Seg Neutrophils # Man Lymphocytes # (Manual) PT ABG pH POC ABG pCO2 POC ABG pO2 ABG pO2 ABG O2 Saturation ABG Base Excess ABG Hemoglobin ABG Oxyhemoglobin ABG Potassium ABG Chloride ABG Glucose Oxyhemoglobin Carboxyhemoglobin Sodium Potassium Chloride Carbon Dioxide BUN Creatinine Glucose POC Glucose 574 H Hemoglobin A1c Lactic Acid 2.60 H* Calcium Phosphorus Magnesium Transferrin AST ALT Alkaline Phosphatase Total Creatine Kinase CK-MB (CK-2) Serum Total Protein Total Protein Albumin Qoilc-4-Aczrwrgmk Hauhm-6-Tiewvxywh Gamma Globulins PEP Interpretation HDL Cholesterol TSH 6.040 H Arterial Blood Glucose Arterial Blood Ionized Calcium Urine WBC (Auto) Urine Creatinine Urine Total Protein Crossmatch 04/20/21 04/20/21 04/20/21 22:12 22:58 22:58 WBC RBC Hgb Hct MCH RDW Plt Count Seg Neuts % (Manual) Lymphocytes % (Manual) Nucleated RBC % Seg Neutrophils # Man Lymphocytes # (Manual) PT ABG pH POC ABG pCO2 POC ABG pO2 ABG pO2 ABG O2 Saturation ABG Base Excess ABG Hemoglobin ABG Oxyhemoglobin ABG Potassium ABG Chloride ABG Glucose Oxyhemoglobin Carboxyhemoglobin Sodium 172 H* Potassium 3.2 L Chloride 134.2 H Carbon Dioxide 17 L BUN 112 H Creatinine 3.8 H Glucose 803 H* POC Glucose 554 H Hemoglobin A1c Lactic Acid Calcium 8.3 L Phosphorus Magnesium 3.50 H Transferrin AST ALT Alkaline Phosphatase Total Creatine Kinase CK-MB (CK-2) Serum Total Protein Total Protein Albumin Twwuw-5-Pumowtvae Desaq-6-Mmdgdiomf Gamma Globulins PEP Interpretation HDL Cholesterol TSH Arterial Blood Glucose Arterial Blood Ionized Calcium Urine WBC (Auto) Urine Creatinine Urine Total Protein Crossmatch 04/21/21 04/21/21 04/21/21 00:14 00:22 02:01 WBC RBC Hgb Hct MCH RDW Plt Count Seg Neuts % (Manual) Lymphocytes % (Manual) Nucleated RBC % Seg Neutrophils # Man Lymphocytes # (Manual) PT ABG pH POC ABG pCO2 POC ABG pO2 ABG pO2 ABG O2 Saturation ABG Base Excess ABG Hemoglobin ABG Oxyhemoglobin ABG Potassium ABG Chloride ABG Glucose Oxyhemoglobin Carboxyhemoglobin Sodium 176 H* 175 H* Potassium 2.9 L* 3.0 L Chloride 139.9 H 136.2 H Carbon Dioxide 17 L 19 L BUN 113 H 112 H Creatinine 3.9 H 3.6 H Glucose 729 H* 582 H* POC Glucose > 600 H Hemoglobin A1c Lactic Acid Calcium Phosphorus Magnesium Transferrin AST ALT Alkaline Phosphatase Total Creatine Kinase CK-MB (CK-2) Serum Total Protein Total Protein Albumin Wtvpa-2-Jttpfgviw Lhtvc-6-Dycnmibni Gamma Globulins PEP Interpretation HDL Cholesterol TSH Arterial Blood Glucose Arterial Blood Ionized Calcium Urine WBC (Auto) Urine Creatinine Urine Total Protein Crossmatch 04/21/21 04/21/21 04/21/21 03:11 03:20 03:41 WBC 14.1 H RBC Hgb Hct MCH 27 L RDW 16.8 H Plt Count 114 L Seg Neuts % (Manual) 97.0 H Lymphocytes % (Manual) 3.0 L Nucleated RBC % 1.0 H Seg Neutrophils # Man 13.7 H Lymphocytes # (Manual) 0.4 L PT ABG pH POC ABG pCO2 POC ABG pO2 ABG pO2 52.3 L ABG O2 Saturation 84.5 L ABG Base Excess -2.9 L ABG Hemoglobin ABG Oxyhemoglobin ABG Potassium ABG Chloride ABG Glucose Oxyhemoglobin 82.9 L Carboxyhemoglobin Sodium Potassium Chloride Carbon Dioxide BUN Creatinine Glucose POC Glucose 404 H Hemoglobin A1c Lactic Acid Calcium Phosphorus Magnesium Transferrin AST ALT Alkaline Phosphatase Total Creatine Kinase CK-MB (CK-2) Serum Total Protein Total Protein Albumin Cjiwo-3-Ilrxoizer Wwoif-9-Icvxlkldv Gamma Globulins PEP Interpretation HDL Cholesterol TSH Arterial Blood Glucose Arterial Blood Ionized Calcium Urine WBC (Auto) Urine Creatinine Urine Total Protein Crossmatch 04/21/21 04/21/21 04/21/21 03:41 04:24 05:45 WBC RBC Hgb Hct MCH RDW Plt Count Seg Neuts % (Manual) Lymphocytes % (Manual) Nucleated RBC % Seg Neutrophils # Man Lymphocytes # (Manual) PT ABG pH POC ABG pCO2 POC ABG pO2 ABG pO2 ABG O2 Saturation ABG Base Excess ABG Hemoglobin ABG Oxyhemoglobin ABG Potassium ABG Chloride ABG Glucose Oxyhemoglobin Carboxyhemoglobin Sodium 179 H* Potassium 2.9 L* Chloride 138.2 H Carbon Dioxide 20 L BUN 111 H Creatinine 3.7 H Glucose 465 H POC Glucose 353 H 280 H Hemoglobin A1c Lactic Acid Calcium Phosphorus Magnesium Transferrin AST 73 H ALT 61 H Alkaline Phosphatase 144 H Total Creatine Kinase CK-MB (CK-2) Serum Total Protein Total Protein Albumin 2.5 L Pkajw-3-Hkqxsuztg Nzidj-8-Syppgdzcw Gamma Globulins PEP Interpretation HDL Cholesterol TSH Arterial Blood Glucose Arterial Blood Ionized Calcium Urine WBC (Auto) Urine Creatinine Urine Total Protein Crossmatch 04/21/21 04/21/21 04/21/21 06:47 08:01 11:11 WBC RBC Hgb Hct MCH RDW Plt Count Seg Neuts % (Manual) Lymphocytes % (Manual) Nucleated RBC % Seg Neutrophils # Man Lymphocytes # (Manual) PT ABG pH POC ABG pCO2 POC ABG pO2 ABG pO2 ABG O2 Saturation ABG Base Excess ABG Hemoglobin ABG Oxyhemoglobin ABG Potassium ABG Chloride ABG Glucose Oxyhemoglobin Carboxyhemoglobin Sodium Potassium Chloride Carbon Dioxide BUN Creatinine Glucose POC Glucose 260 H 68 L Hemoglobin A1c Lactic Acid Calcium Phosphorus Magnesium Transferrin AST ALT Alkaline Phosphatase Total Creatine Kinase CK-MB (CK-2) Serum Total Protein Total Protein Albumin Ptcpy-1-Gnuaafifo Jssmn-6-Zwjvzncka Gamma Globulins PEP Interpretation HDL Cholesterol TSH Arterial Blood Glucose Arterial Blood Ionized Calcium Urine WBC (Auto) Urine Creatinine 44.3 H Urine Total Protein 12 H Crossmatch 04/21/21 04/21/21 04/21/21 12:51 13:41 14:40 WBC RBC Hgb Hct MCH RDW Plt Count Seg Neuts % (Manual) Lymphocytes % (Manual) Nucleated RBC % Seg Neutrophils # Man Lymphocytes # (Manual) PT ABG pH 7.275 L POC ABG pCO2 POC ABG pO2 63.4 L ABG pO2 ABG O2 Saturation ABG Base Excess ABG Hemoglobin 8.4 L ABG Oxyhemoglobin 89.5 L ABG Potassium ABG Chloride 108.0 H ABG Glucose 404 H Oxyhemoglobin Carboxyhemoglobin Sodium Potassium Chloride Carbon Dioxide BUN Creatinine Glucose POC Glucose 146 H 186 H Hemoglobin A1c Lactic Acid Calcium Phosphorus Magnesium Transferrin AST ALT Alkaline Phosphatase Total Creatine Kinase CK-MB (CK-2) Serum Total Protein Total Protein Albumin Txjjt-0-Fylkufibb Kyiwx-0-Xwoyiofyy Gamma Globulins PEP Interpretation HDL Cholesterol TSH Arterial Blood Glucose 404 H Arterial Blood Ionized Calcium Urine WBC (Auto) Urine Creatinine Urine Total Protein Crossmatch 04/21/21 04/21/21 04/21/21 15:47 16:25 17:57 WBC RBC Hgb Hct MCH RDW Plt Count Seg Neuts % (Manual) Lymphocytes % (Manual) Nucleated RBC % Seg Neutrophils # Man Lymphocytes # (Manual) PT ABG pH 7.486 H POC ABG pCO2 POC ABG pO2 ABG pO2 168.1 H ABG O2 Saturation 99.1 H ABG Base Excess ABG Hemoglobin 8.9 L ABG Oxyhemoglobin ABG Potassium ABG Chloride ABG Glucose Oxyhemoglobin Carboxyhemoglobin Sodium Potassium Chloride Carbon Dioxide BUN Creatinine Glucose POC Glucose 172 H 143 H Hemoglobin A1c Lactic Acid Calcium Phosphorus Magnesium Transferrin AST ALT Alkaline Phosphatase Total Creatine Kinase CK-MB (CK-2) Serum Total Protein Total Protein Albumin Mdtim-0-Xiolqbybt Povqg-5-Txuyxbytn Gamma Globulins PEP Interpretation HDL Cholesterol TSH Arterial Blood Glucose Arterial Blood Ionized Calcium Urine WBC (Auto) Urine Creatinine Urine Total Protein Crossmatch 04/21/21 04/21/21 04/21/21 18:49 19:10 20:26 WBC RBC Hgb Hct MCH RDW Plt Count Seg Neuts % (Manual) Lymphocytes % (Manual) Nucleated RBC % Seg Neutrophils # Man Lymphocytes # (Manual) PT ABG pH POC ABG pCO2 POC ABG pO2 ABG pO2 ABG O2 Saturation ABG Base Excess ABG Hemoglobin ABG Oxyhemoglobin ABG Potassium ABG Chloride ABG Glucose Oxyhemoglobin Carboxyhemoglobin Sodium 174 H* Potassium 7.2 H* D Chloride 138.2 H Carbon Dioxide 21 L BUN 99 H Creatinine 4.0 H Glucose 157 H POC Glucose 126 H 190 H Hemoglobin A1c Lactic Acid Calcium Phosphorus Magnesium Transferrin AST 134 H ALT 71 H Alkaline Phosphatase 135 H Total Creatine Kinase 3504 H CK-MB (CK-2) Serum Total Protein Total Protein Albumin 2.2 L Yzyqe-6-Lpvtpyhxt Xmitb-9-Umbqgvhsb Gamma Globulins PEP Interpretation HDL Cholesterol TSH Arterial Blood Glucose Arterial Blood Ionized Calcium Urine WBC (Auto) Urine Creatinine Urine Total Protein Crossmatch 04/21/21 04/21/21 04/21/21 20:53 21:52 22:55 WBC RBC Hgb Hct MCH RDW Plt Count Seg Neuts % (Manual) Lymphocytes % (Manual) Nucleated RBC % Seg Neutrophils # Man Lymphocytes # (Manual) PT ABG pH POC ABG pCO2 POC ABG pO2 ABG pO2 ABG O2 Saturation ABG Base Excess ABG Hemoglobin ABG Oxyhemoglobin ABG Potassium ABG Chloride ABG Glucose Oxyhemoglobin Carboxyhemoglobin Sodium Potassium Chloride Carbon Dioxide BUN Creatinine Glucose POC Glucose 116 H 135 H 158 H Hemoglobin A1c Lactic Acid Calcium Phosphorus Magnesium Transferrin AST ALT Alkaline Phosphatase Total Creatine Kinase CK-MB (CK-2) Serum Total Protein Total Protein Albumin Yrwiy-1-Gjpxwhybu Vchnd-0-Zlsroutln Gamma Globulins PEP Interpretation HDL Cholesterol TSH Arterial Blood Glucose Arterial Blood Ionized Calcium Urine WBC (Auto) Urine Creatinine Urine Total Protein Crossmatch 04/21/21 04/22/21 04/22/21 23:00 00:01 00:39 WBC RBC Hgb Hct MCH RDW Plt Count Seg Neuts % (Manual) Lymphocytes % (Manual) Nucleated RBC % Seg Neutrophils # Man Lymphocytes # (Manual) PT ABG pH POC ABG pCO2 POC ABG pO2 ABG pO2 ABG O2 Saturation ABG Base Excess ABG Hemoglobin ABG Oxyhemoglobin ABG Potassium ABG Chloride ABG Glucose Oxyhemoglobin Carboxyhemoglobin Sodium 176 H* 171 H* Potassium Chloride 140.0 H Carbon Dioxide 20 L BUN 98 H Creatinine 3.9 H Glucose 206 H POC Glucose 182 H Hemoglobin A1c Lactic Acid Calcium Phosphorus Magnesium Transferrin AST ALT Alkaline Phosphatase Total Creatine Kinase 3240 H CK-MB (CK-2) Serum Total Protein Total Protein Albumin Lfwwf-6-Pqpgponfx Vxrwy-0-Iwgqmrazg Gamma Globulins PEP Interpretation HDL Cholesterol TSH Arterial Blood Glucose Arterial Blood Ionized Calcium Urine WBC (Auto) Urine Creatinine Urine Total Protein Crossmatch 04/22/21 04/22/21 04/22/21 00:58 01:04 04:52 WBC 11.2 H RBC Hgb Hct 44.3 H MCH 27 L RDW 17.1 H Plt Count 86 L Seg Neuts % (Manual) 86.0 H Lymphocytes % (Manual) 13.0 L Nucleated RBC % Seg Neutrophils # Man 9.6 H Lymphocytes # (Manual) PT ABG pH POC ABG pCO2 POC ABG pO2 ABG pO2 ABG O2 Saturation ABG Base Excess ABG Hemoglobin ABG Oxyhemoglobin ABG Potassium ABG Chloride ABG Glucose Oxyhemoglobin Carboxyhemoglobin Sodium Potassium Chloride Carbon Dioxide BUN Creatinine Glucose POC Glucose 176 H 143 H Hemoglobin A1c Lactic Acid Calcium Phosphorus Magnesium Transferrin AST ALT Alkaline Phosphatase Total Creatine Kinase CK-MB (CK-2) Serum Total Protein Total Protein Albumin Dnvrq-7-Eefhggjvh [place]iego-2-Ywibmewyr Gamma Globulins PEP Interpretation HDL Cholesterol TSH Arterial Blood Glucose Arterial Blood Ionized Calcium Urine WBC (Auto) Urine Creatinine Urine Total Protein Crossmatch 04/22/21 04/22/21 04/22/21 06:07 06:09 07:18 WBC RBC Hgb Hct MCH RDW Plt Count Seg Neuts % (Manual) Lymphocytes % (Manual) Nucleated RBC % Seg Neutrophils # Man Lymphocytes # (Manual) PT ABG pH POC ABG pCO2 POC ABG pO2 ABG pO2 ABG O2 Saturation ABG Base Excess ABG Hemoglobin ABG Oxyhemoglobin ABG Potassium ABG Chloride ABG Glucose Oxyhemoglobin Carboxyhemoglobin Sodium Potassium Chloride Carbon Dioxide BUN Creatinine Glucose POC Glucose 206 H 163 H 158 H Hemoglobin A1c Lactic Acid Calcium Phosphorus Magnesium Transferrin AST ALT Alkaline Phosphatase Total Creatine Kinase CK-MB (CK-2) Serum Total Protein Total Protein Albumin Adxqh-5-Ffspycceo Zjext-9-Jyleojyci Gamma Globulins PEP Interpretation HDL Cholesterol TSH Arterial Blood Glucose Arterial Blood Ionized Calcium Urine WBC (Auto) Urine Creatinine Urine Total Protein Crossmatch 04/22/21 04/22/21 04/22/21 08:59 08:59 08:59 WBC RBC Hgb Hct MCH RDW Plt Count Seg Neuts % (Manual) Lymphocytes % (Manual) Nucleated RBC % Seg Neutrophils # Man Lymphocytes # (Manual) PT ABG pH POC ABG pCO2 POC ABG pO2 ABG pO2 ABG O2 Saturation ABG Base Excess ABG Hemoglobin ABG Oxyhemoglobin ABG Potassium ABG Chloride ABG Glucose Oxyhemoglobin Carboxyhemoglobin Sodium 169 H* Potassium 3.5 L Chloride 134.5 H Carbon Dioxide 20 L BUN 95 H Creatinine 3.6 H Glucose 151 H POC Glucose Hemoglobin A1c Lactic Acid Calcium Phosphorus Magnesium Transferrin AST 121 H ALT 75 H Alkaline Phosphatase 137 H Total Creatine Kinase 3105 H CK-MB (CK-2) Serum Total Protein 5.5 L Total Protein 6.0 L Albumin 2.8 L 2.1 L Abhlx-7-[place]ef[place] 0.6 H Fsjwa-4-Jdjlqbnal 1.0 H Gamma Globulins 0.6 L PEP Interpretation see below H HDL Cholesterol TSH Arterial Blood Glucose Arterial Blood Ionized Calcium Urine WBC (Auto) Urine Creatinine Urine Total Protein Crossmatch 04/22/21 04/22/21 04/22/21 09:44 10:24 12:20 WBC RBC Hgb Hct MCH RDW Plt Count Seg Neuts % (Manual) Lymphocytes % (Manual) Nucleated RBC % Seg Neutrophils # Man Lymphocytes # (Manual) PT ABG pH POC ABG pCO2 POC ABG pO2 ABG pO2 ABG O2 Saturation ABG Base Excess ABG Hemoglobin ABG Oxyhemoglobin ABG Potassium ABG Chloride ABG Glucose Oxyhemoglobin Carboxyhemoglobin Sodium Potassium Chloride Carbon Dioxide BUN Creatinine Glucose POC Glucose 107 H 131 H Hemoglobin A1c Lactic Acid Calcium Phosphorus Magnesium 2.80 H Transferrin AST ALT Alkaline Phosphatase Total Creatine Kinase CK-MB (CK-2) Serum Total Protein Total Protein Albumin Eibfh-8-Xpkbcgggj Yrzsj-5-Sigylxszt Gamma Globulins PEP Interpretation HDL Cholesterol TSH Arterial Blood Glucose Arterial Blood Ionized Calcium Urine WBC (Auto) Urine Creatinine Urine Total Protein Crossmatch 04/22/21 04/22/21 04/22/21 13:19 14:16 15:22 WBC RBC Hgb Hct MCH RDW Plt Count Seg Neuts % (Manual) Lymphocytes % (Manual) Nucleated RBC % Seg Neutrophils # Man Lymphocytes # (Manual) PT ABG pH POC ABG pCO2 POC ABG pO2 ABG pO2 ABG O2 Saturation ABG Base Excess ABG Hemoglobin ABG Oxyhemoglobin ABG Potassium ABG Chloride ABG Glucose Oxyhemoglobin Carboxyhemoglobin Sodium Potassium Chloride Carbon Dioxide BUN Creatinine Glucose POC Glucose 147 H 154 H 136 H Hemoglobin A1c Lactic Acid Calcium Phosphorus Magnesium Transferrin AST ALT Alkaline Phosphatase Total Creatine Kinase CK-MB (CK-2) Serum Total Protein Total Protein Albumin Czkdx-0-Lkimxwzlt Ziozn-5-Xovzirrko Gamma Globulins PEP Interpretation HDL Cholesterol TSH Arterial Blood Glucose Arterial Blood Ionized Calcium Urine WBC (Auto) Urine Creatinine Urine Total Protein Crossmatch 04/22/21 04/22/21 04/22/21 15:55 15:55 16:22 WBC RBC Hgb Hct MCH RDW Plt Count Seg Neuts % (Manual) Lymphocytes % (Manual) Nucleated RBC % Seg Neutrophils # Man Lymphocytes # (Manual) PT ABG pH POC ABG pCO2 POC ABG pO2 ABG pO2 ABG O2 Saturation ABG Base Excess ABG Hemoglobin ABG Oxyhemoglobin ABG Potassium ABG Chloride ABG Glucose Oxyhemoglobin Carboxyhemoglobin Sodium 169 H* Potassium Chloride 133.5 H Carbon Dioxide 19 L BUN 94 H Creatinine 3.8 H Glucose 150 H POC Glucose 140 H Hemoglobin A1c 17.1 H Lactic Acid Calcium Phosphorus Magnesium Transferrin AST ALT Alkaline Phosphatase Total Creatine Kinase CK-MB (CK-2) Serum Total Protein Total Protein Albumin Pacto-6-Lygropmyu Qckzn-4-Hwjhuowgm Gamma Globulins PEP Interpretation HDL Cholesterol TSH Arterial Blood Glucose Arterial Blood Ionized Calcium Urine WBC (Auto) Urine Creatinine Urine Total Protein Crossmatch 04/22/21 04/22/21 04/22/21 18:11 18:26 23:19 WBC RBC Hgb Hct MCH RDW Plt Count Seg Neuts % (Manual) Lymphocytes % (Manual) Nucleated RBC % Seg Neutrophils # Man Lymphocytes # (Manual) PT ABG pH POC ABG pCO2 POC ABG pO2 ABG pO2 ABG O2 Saturation ABG Base Excess ABG Hemoglobin ABG Oxyhemoglobin ABG Potassium ABG Chloride ABG Glucose Oxyhemoglobin Carboxyhemoglobin Sodium Potassium Chloride Carbon Dioxide BUN Creatinine Glucose POC Glucose 146 H 188 H Hemoglobin A1c Lactic Acid Calcium Phosphorus Magnesium Transferrin AST ALT Alkaline Phosphatase Total Creatine Kinase 2497 H CK-MB (CK-2) Serum Total Protein Total Protein Albumin Njurf-6-Donudgcjp Luqla-4-Malxpflnf Gamma Globulins PEP Interpretation HDL Cholesterol TSH Arterial Blood Glucose Arterial Blood Ionized Calcium Urine WBC (Auto) Urine Creatinine Urine Total Protein Crossmatch 04/23/21 04/23/21 04/23/21 00:27 05:23 07:50 WBC RBC Hgb Hct MCH RDW Plt Count Seg Neuts % (Manual) Lymphocytes % (Manual) Nucleated RBC % Seg Neutrophils # Man Lymphocytes # (Manual) PT ABG pH POC ABG pCO2 POC ABG pO2 ABG pO2 ABG O2 Saturation ABG Base Excess ABG Hemoglobin ABG Oxyhemoglobin ABG Potassium ABG Chloride ABG Glucose Oxyhemoglobin Carboxyhemoglobin Sodium 162 H* Potassium Chloride Carbon Dioxide BUN Creatinine Glucose POC Glucose 212 H 239 H Hemoglobin A1c Lactic Acid Calcium Phosphorus Magnesium Transferrin AST ALT Alkaline Phosphatase Total Creatine Kinase CK-MB (CK-2) Serum Total Protein Total Protein Albumin Wmool-9-Nmwmaagid Fvkpi-1-Alxsgpzqz Gamma Globulins PEP Interpretation HDL Cholesterol TSH Arterial Blood Glucose Arterial Blood Ionized Calcium Urine WBC (Auto) Urine Creatinine Urine Total Protein Crossmatch 04/23/21 04/23/21 04/23/21 08:13 08:13 08:13 WBC 11.9 H RBC Hgb Hct MCH 26 L RDW 16.5 H Plt Count 72 L Seg Neuts % (Manual) 80.0 H Lymphocytes % (Manual) 5.0 L Nucleated RBC % Seg Neutrophils # Man 9.5 H Lymphocytes # (Manual) 0.6 L PT ABG pH POC ABG pCO2 POC ABG pO2 ABG pO2 ABG O2 Saturation ABG Base Excess ABG Hemoglobin ABG Oxyhemoglobin ABG Potassium ABG Chloride ABG Glucose Oxyhemoglobin Carboxyhemoglobin Sodium 164 H* Potassium Chloride 128.0 H Carbon Dioxide 21 L BUN 93 H Creatinine 3.8 H Glucose 293 H POC Glucose Hemoglobin A1c Lactic Acid Calcium Phosphorus Magnesium Transferrin AST 99 H ALT 70 H Alkaline Phosphatase 147 H Total Creatine Kinase 1803 H CK-MB (CK-2) Serum Total Protein Total Protein 6.1 L Albumin 2.0 L Bgzyu-4-Mzaucitps Pixaz-1-Emqdforii Gamma Globulins PEP Interpretation HDL Cholesterol TSH Arterial Blood Glucose Arterial Blood Ionized Calcium Urine WBC (Auto) Urine Creatinine Urine Total Protein Crossmatch 04/23/21 04/23/21 04/23/21 12:06 17:35 18:17 WBC RBC Hgb Hct MCH RDW Plt Count Seg Neuts % (Manual) Lymphocytes % (Manual) Nucleated RBC % Seg Neutrophils # Man Lymphocytes # (Manual) PT ABG pH POC ABG pCO2 POC ABG pO2 ABG pO2 ABG O2 Saturation ABG Base Excess ABG Hemoglobin ABG Oxyhemoglobin ABG Potassium ABG Chloride ABG Glucose Oxyhemoglobin Carboxyhemoglobin Sodium 160 H Potassium Chloride Carbon Dioxide BUN Creatinine Glucose POC Glucose 311 H 370 H Hemoglobin A1c Lactic Acid Calcium Phosphorus Magnesium Transferrin AST ALT Alkaline Phosphatase Total Creatine Kinase CK-MB (CK-2) Serum Total Protein Total Protein Albumin Anhke-8-Cocnvvpby Jozwy-1-Tinptprcn Gamma Globulins PEP Interpretation HDL Cholesterol TSH Arterial Blood Glucose Arterial Blood Ionized Calcium Urine WBC (Auto) Urine Creatinine Urine Total Protein Crossmatch 04/24/21 04/24/21 04/24/21 02:13 06:00 06:00 WBC RBC Hgb Hct MCH 27 L RDW 17.0 H Plt Count 58 L Seg Neuts % (Manual) Lymphocytes % (Manual) 2.0 L Nucleated RBC % Seg Neutrophils # Man 8.9 H Lymphocytes # (Manual) 0.2 L PT ABG pH POC ABG pCO2 POC ABG pO2 ABG pO2 ABG O2 Saturation ABG Base Excess ABG Hemoglobin ABG Oxyhemoglobin ABG Potassium ABG Chloride ABG Glucose Oxyhemoglobin Carboxyhemoglobin Sodium 160 H Potassium Chloride Carbon Dioxide BUN Creatinine Glucose POC Glucose Hemoglobin A1c Lactic Acid Calcium Phosphorus Magnesium 2.90 H Transferrin AST ALT Alkaline Phosphatase Total Creatine Kinase CK-MB (CK-2) Serum Total Protein Total Protein Albumin Rtojm-0-Kkdfmpxbn Mbhcf-3-Lgceuyeeh Gamma Globulins PEP Interpretation HDL Cholesterol TSH Arterial Blood Glucose Arterial Blood Ionized Calcium Urine WBC (Auto) Urine Creatinine Urine Total Protein Crossmatch 04/24/21 04/24/21 04/24/21 07:46 08:15 11:34 WBC RBC Hgb Hct MCH RDW Plt Count Seg Neuts % (Manual) Lymphocytes % (Manual) Nucleated RBC % Seg Neutrophils # Man Lymphocytes # (Manual) PT ABG pH POC ABG pCO2 POC ABG pO2 ABG pO2 ABG O2 Saturation ABG Base Excess ABG Hemoglobin ABG Oxyhemoglobin ABG Potassium ABG Chloride ABG Glucose Oxyhemoglobin Carboxyhemoglobin Sodium 159 H Potassium Chloride 125.6 H Carbon Dioxide 19 L BUN 94 H Creatinine 3.7 H Glucose 514 H* POC Glucose 395 H 422 H Hemoglobin A1c Lactic Acid Calcium Phosphorus Magnesium Transferrin AST ALT 61 H Alkaline Phosphatase 155 H Total Creatine Kinase CK-MB (CK-2) Serum Total Protein Total Protein 6.1 L Albumin 1.5 L Gjeef-2-Ozodnaueo Agwrr-2-Euzpwqeef Gamma Globulins PEP Interpretation HDL Cholesterol TSH Arterial Blood Glucose Arterial Blood Ionized Calcium Urine WBC (Auto) Urine Creatinine Urine Total Protein Crossmatch 04/24/21 04/24/21 04/24/21 13:11 14:01 15:03 WBC RBC Hgb Hct MCH RDW Plt Count Seg Neuts % (Manual) Lymphocytes % (Manual) Nucleated RBC % Seg Neutrophils # Man Lymphocytes # (Manual) PT ABG pH POC ABG pCO2 POC ABG pO2 ABG pO2 ABG O2 Saturation ABG Base Excess ABG Hemoglobin ABG Oxyhemoglobin ABG Potassium ABG Chloride ABG Glucose Oxyhemoglobin Carboxyhemoglobin Sodium Potassium Chloride Carbon Dioxide BUN Creatinine Glucose POC Glucose 384 H 423 H 418 H Hemoglobin A1c Lactic Acid Calcium Phosphorus Magnesium Transferrin AST ALT Alkaline Phosphatase Total Creatine Kinase CK-MB (CK-2) Serum Total Protein Total Protein Albumin Bfyfp-2-Syvmsxzya Lkikq-2-Nswawndqw Gamma Globulins PEP Interpretation HDL Cholesterol TSH Arterial Blood Glucose Arterial Blood Ionized Calcium Urine WBC (Auto) Urine Creatinine Urine Total Protein Crossmatch 04/24/21 04/24/21 04/24/21 17:29 18:28 19:41 WBC RBC Hgb Hct MCH RDW Plt Count Seg Neuts % (Manual) Lymphocytes % (Manual) Nucleated RBC % Seg Neutrophils # Man Lymphocytes # (Manual) PT ABG pH POC ABG pCO2 POC ABG pO2 ABG pO2 ABG O2 Saturation ABG Base Excess ABG Hemoglobin ABG Oxyhemoglobin ABG Potassium ABG Chloride ABG Glucose Oxyhemoglobin Carboxyhemoglobin Sodium Potassium Chloride Carbon Dioxide BUN Creatinine Glucose POC Glucose 335 H 321 H Hemoglobin A1c Lactic Acid Calcium Phosphorus Magnesium Transferrin 112 L AST ALT Alkaline Phosphatase Total Creatine Kinase CK-MB (CK-2) Serum Total Protein Total Protein Albumin Upusp-8-Lbyiwazsq Rqwmc-6-Hxzkelbxo Gamma Globulins PEP Interpretation HDL Cholesterol TSH Arterial Blood Glucose Arterial Blood Ionized Calcium Urine WBC (Auto) Urine Creatinine Urine Total Protein Crossmatch 04/24/21 04/25/21 04/25/21 22:33 01:28 02:28 WBC RBC Hgb Hct MCH RDW Plt Count Seg Neuts % (Manual) Lymphocytes % (Manual) Nucleated RBC % Seg Neutrophils # Man Lymphocytes # (Manual) PT ABG pH POC ABG pCO2 POC ABG pO2 ABG pO2 ABG O2 Saturation ABG Base Excess ABG Hemoglobin ABG Oxyhemoglobin ABG Potassium ABG Chloride ABG Glucose Oxyhemoglobin Carboxyhemoglobin Sodium Potassium Chloride Carbon Dioxide BUN Creatinine Glucose POC Glucose 349 H 283 H 247 H Hemoglobin A1c Lactic Acid Calcium Phosphorus Magnesium Transferrin AST ALT Alkaline Phosphatase Total Creatine Kinase CK-MB (CK-2) Serum Total Protein Total Protein Albumin Lxyeo-0-Vqzqbjtid Jmxtn-6-Xylmkltvo Gamma Globulins PEP Interpretation HDL Cholesterol TSH Arterial Blood Glucose Arterial Blood Ionized Calcium Urine WBC (Auto) Urine Creatinine Urine Total Protein Crossmatch 04/25/21 04/25/21 04/25/21 03:25 04:22 05:40 WBC RBC Hgb Hct MCH RDW Plt Count Seg Neuts % (Manual) Lymphocytes % (Manual) Nucleated RBC % Seg Neutrophils # Man Lymphocytes # (Manual) PT ABG pH POC ABG pCO2 POC ABG pO2 ABG pO2 ABG O2 Saturation ABG Base Excess ABG Hemoglobin ABG Oxyhemoglobin ABG Potassium ABG Chloride ABG Glucose Oxyhemoglobin Carboxyhemoglobin Sodium Potassium Chloride Carbon Dioxide BUN Creatinine Glucose POC Glucose 196 H 207 H 204 H Hemoglobin A1c Lactic Acid Calcium Phosphorus Magnesium Transferrin AST ALT Alkaline Phosphatase Total Creatine Kinase CK-MB (CK-2) Serum Total Protein Total Protein Albumin Gvvvf-4-Tqeyjclew Ddipg-0-Gcoeieaff Gamma Globulins PEP Interpretation HDL Cholesterol TSH Arterial Blood Glucose Arterial Blood Ionized Calcium Urine WBC (Auto) Urine Creatinine Urine Total Protein Crossmatch 04/25/21 04/25/21 04/25/21 05:45 06:43 07:37 WBC RBC Hgb Hct MCH 27 L RDW 17.0 H Plt Count 64 L Seg Neuts % (Manual) 84.0 H Lymphocytes % (Manual) 6.0 L Nucleated RBC % 1.0 H Seg Neutrophils # Man Lymphocytes # (Manual) 0.4 L PT ABG pH POC ABG pCO2 POC ABG pO2 ABG pO2 ABG O2 Saturation ABG Base Excess ABG Hemoglobin ABG Oxyhemoglobin ABG Potassium ABG Chloride ABG Glucose Oxyhemoglobin Carboxyhemoglobin Sodium Potassium Chloride Carbon Dioxide BUN Creatinine Glucose POC Glucose 238 H 201 H Hemoglobin A1c Lactic Acid Calcium Phosphorus Magnesium Transferrin AST ALT Alkaline Phosphatase Total Creatine Kinase CK-MB (CK-2) Serum Total Protein Total Protein Albumin Seyke-3-Onygekcfw Gpnot-0-Kmrzukeua Gamma Globulins PEP Interpretation HDL Cholesterol TSH Arterial Blood Glucose Arterial Blood Ionized Calcium Urine WBC (Auto) Urine Creatinine Urine Total Protein Crossmatch 04/25/21 04/25/21 04/25/21 08:11 08:11 08:41 WBC RBC Hgb Hct MCH RDW Plt Count Seg Neuts % (Manual) Lymphocytes % (Manual) Nucleated RBC % Seg Neutrophils # Man Lymphocytes # (Manual) PT ABG pH POC ABG pCO2 POC ABG pO2 ABG pO2 ABG O2 Saturation ABG Base Excess ABG Hemoglobin ABG Oxyhemoglobin ABG Potassium ABG Chloride ABG Glucose Oxyhemoglobin Carboxyhemoglobin Sodium 148 H D Potassium Chloride 115.7 H Carbon Dioxide 21 L BUN 83 H Creatinine 3.6 H Glucose 247 H POC Glucose 220 H Hemoglobin A1c Lactic Acid Calcium Phosphorus Magnesium 2.50 H Transferrin AST 63 H ALT 62 H Alkaline Phosphatase 143 H Total Creatine Kinase CK-MB (CK-2) Serum Total Protein Total Protein 5.4 L Albumin 1.4 L Dswaf-5-Imbissjks Dfgja-4-Vjmwhdyke Gamma Globulins PEP Interpretation HDL Cholesterol TSH Arterial Blood Glucose Arterial Blood Ionized Calcium Urine WBC (Auto) Urine Creatinine Urine Total Protein Crossmatch 04/25/21 04/25/21 04/25/21 09:22 10:31 11:44 WBC RBC Hgb Hct MCH RDW Plt Count Seg Neuts % (Manual) Lymphocytes % (Manual) Nucleated RBC % Seg Neutrophils # Man Lymphocytes # (Manual) PT ABG pH POC ABG pCO2 POC ABG pO2 ABG pO2 ABG O2 Saturation ABG Base Excess ABG Hemoglobin ABG Oxyhemoglobin ABG Potassium ABG Chloride ABG Glucose Oxyhemoglobin Carboxyhemoglobin Sodium Potassium Chloride Carbon Dioxide BUN Creatinine Glucose POC Glucose 228 H 215 H 191 H Hemoglobin A1c Lactic Acid Calcium Phosphorus Magnesium Transferrin AST ALT Alkaline Phosphatase Total Creatine Kinase CK-MB (CK-2) Serum Total Protein Total Protein Albumin Uxbvn-0-Jpjxohyld Ozxli-0-Icliioike Gamma Globulins PEP Interpretation HDL Cholesterol TSH Arterial Blood Glucose Arterial Blood Ionized Calcium Urine WBC (Auto) Urine Creatinine Urine Total Protein Crossmatch 04/25/21 04/25/21 04/25/21 12:23 13:48 14:11 WBC RBC Hgb Hct MCH RDW Plt Count Seg Neuts % (Manual) Lymphocytes % (Manual) Nucleated RBC % Seg Neutrophils # Man Lymphocytes # (Manual) PT ABG pH POC ABG pCO2 POC ABG pO2 ABG pO2 ABG O2 Saturation ABG Base Excess ABG Hemoglobin ABG Oxyhemoglobin ABG Potassium ABG Chloride ABG Glucose Oxyhemoglobin Carboxyhemoglobin Sodium Potassium Chloride Carbon Dioxide BUN Creatinine Glucose POC Glucose 229 H 177 H 161 H Hemoglobin A1c Lactic Acid Calcium Phosphorus Magnesium Transferrin AST ALT Alkaline Phosphatase Total Creatine Kinase CK-MB (CK-2) Serum Total Protein Total Protein Albumin Lxacn-4-Tputoswyf Ttgfo-3-Zpewptmun Gamma Globulins PEP Interpretation HDL Cholesterol TSH Arterial Blood Glucose Arterial Blood Ionized Calcium Urine WBC (Auto) Urine Creatinine Urine Total Protein Crossmatch 04/25/21 04/25/21 04/26/21 18:01 21:31 01:19 WBC RBC Hgb Hct MCH RDW Plt Count Seg Neuts % (Manual) Lymphocytes % (Manual) Nucleated RBC % Seg Neutrophils # Man Lymphocytes # (Manual) PT ABG pH POC ABG pCO2 POC ABG pO2 ABG pO2 ABG O2 Saturation ABG Base Excess ABG Hemoglobin ABG Oxyhemoglobin ABG Potassium ABG Chloride ABG Glucose Oxyhemoglobin Carboxyhemoglobin Sodium Potassium Chloride Carbon Dioxide BUN Creatinine Glucose POC Glucose 264 H 371 H 356 H Hemoglobin A1c Lactic Acid Calcium Phosphorus Magnesium Transferrin AST ALT Alkaline Phosphatase Total Creatine Kinase CK-MB (CK-2) Serum Total Protein Total Protein Albumin Cieyf-2-Ejkshmhfk Gtbxv-0-Zznrqrcad Gamma Globulins PEP Interpretation HDL Cholesterol TSH Arterial Blood Glucose Arterial Blood Ionized Calcium Urine WBC (Auto) Urine Creatinine Urine Total Protein Crossmatch 04/26/21 04/26/21 04/26/21 06:31 09:13 09:33 WBC RBC Hgb Hct MCH 27 L RDW 16.9 H Plt Count 58 L Seg Neuts % (Manual) 77.0 H Lymphocytes % (Manual) 4.0 L Nucleated RBC % 2.0 H Seg Neutrophils # Man Lymphocytes # (Manual) 0.3 L PT ABG pH POC ABG pCO2 POC ABG pO2 ABG pO2 ABG O2 Saturation ABG Base Excess ABG Hemoglobin ABG Oxyhemoglobin ABG Potassium ABG Chloride ABG Glucose Oxyhemoglobin Carboxyhemoglobin Sodium Potassium Chloride Carbon Dioxide BUN Creatinine Glucose POC Glucose 428 H 454 H Hemoglobin A1c Lactic Acid Calcium Phosphorus Magnesium Transferrin AST ALT Alkaline Phosphatase Total Creatine Kinase CK-MB (CK-2) Serum Total Protein Total Protein Albumin Gnpoc-0-Fuhqkdqtf Srafv-2-Ewkeqgznn Gamma Globulins PEP Interpretation HDL Cholesterol TSH Arterial Blood Glucose Arterial Blood Ionized Calcium Urine WBC (Auto) Urine Creatinine Urine Total Protein Crossmatch 04/26/21 04/26/21 04/26/21 09:33 09:33 11:00 WBC RBC Hgb Hct MCH RDW Plt Count Seg Neuts % (Manual) Lymphocytes % (Manual) Nucleated RBC % Seg Neutrophils # Man Lymphocytes # (Manual) PT ABG pH 7.281 L POC ABG pCO2 POC ABG pO2 66.4 L ABG pO2 ABG O2 Saturation ABG Base Excess ABG Hemoglobin 10.9 L ABG Oxyhemoglobin 91 L ABG Potassium ABG Chloride ABG Glucose 521 H Oxyhemoglobin Carboxyhemoglobin Sodium Potassium Chloride Carbon Dioxide 19 L BUN 98 H Creatinine 3.8 H Glucose 530 H* POC Glucose Hemoglobin A1c Lactic Acid Calcium 8.1 L Phosphorus 5.60 H D Magnesium Transferrin AST 60 H ALT 72 H Alkaline Phosphatase 168 H Total Creatine Kinase CK-MB (CK-2) Serum Total Protein Total Protein 4.6 L Albumin 1.7 L Jgxrf-7-Yalmauxhr Ecycl-7-Axgugjzdf Gamma Globulins PEP Interpretation HDL Cholesterol TSH Arterial Blood Glucose 521 H Arterial Blood Ionized Calcium Urine WBC (Auto) Urine Creatinine Urine Total Protein Crossmatch 04/26/21 04/26/21 04/26/21 12:36 15:39 16:18 WBC RBC Hgb Hct MCH RDW Plt Count Seg Neuts % (Manual) Lymphocytes % (Manual) Nucleated RBC % Seg Neutrophils # Man Lymphocytes # (Manual) PT ABG pH 7.275 L POC ABG pCO2 POC ABG pO2 63.4 L ABG pO2 ABG O2 Saturation ABG Base Excess ABG Hemoglobin 8.4 L ABG Oxyhemoglobin 89.5 L ABG Potassium ABG Chloride 108.0 H ABG Glucose 404 H Oxyhemoglobin Carboxyhemoglobin Sodium Potassium Chloride Carbon Dioxide BUN Creatinine Glucose POC Glucose 414 H 324 H Hemoglobin A1c Lactic Acid Calcium Phosphorus Magnesium Transferrin AST ALT Alkaline Phosphatase Total Creatine Kinase CK-MB (CK-2) Serum Total Protein Total Protein Albumin Ltpuo-4-Liocwyrkq Laffp-0-Jeygafpsd Gamma Globulins PEP Interpretation HDL Cholesterol TSH Arterial Blood Glucose 404 H Arterial Blood Ionized Calcium Urine WBC (Auto) Urine Creatinine Urine Total Protein Crossmatch 04/26/21 04/27/21 04/27/21 21:14 00:07 05:47 WBC RBC Hgb Hct MCH RDW Plt Count Seg Neuts % (Manual) Lymphocytes % (Manual) Nucleated RBC % Seg Neutrophils # Man Lymphocytes # (Manual) PT ABG pH POC ABG pCO2 POC ABG pO2 ABG pO2 ABG O2 Saturation ABG Base Excess ABG Hemoglobin ABG Oxyhemoglobin ABG Potassium ABG Chloride ABG Glucose Oxyhemoglobin Carboxyhemoglobin Sodium Potassium Chloride Carbon Dioxide BUN Creatinine Glucose POC Glucose 242 H 282 H 214 H Hemoglobin A1c Lactic Acid Calcium Phosphorus Magnesium Transferrin AST ALT Alkaline Phosphatase Total Creatine Kinase CK-MB (CK-2) Serum Total Protein Total Protein Albumin Dupat-1-Nsanublaf Eoaqq-2-Gqwxijybu Gamma Globulins PEP Interpretation HDL Cholesterol TSH Arterial Blood Glucose Arterial Blood Ionized Calcium Urine WBC (Auto) Urine Creatinine Urine Total Protein Crossmatch 04/27/21 04/27/21 04/27/21 06:23 07:43 08:30 WBC RBC Hgb Hct MCH RDW Plt Count Seg Neuts % (Manual) Lymphocytes % (Manual) Nucleated RBC % Seg Neutrophils # Man Lymphocytes # (Manual) PT ABG pH 7.309 L POC ABG pCO2 POC ABG pO2 70.6 L ABG pO2 ABG O2 Saturation ABG Base Excess ABG Hemoglobin 9.16 L ABG Oxyhemoglobin 92.4 L ABG Potassium ABG Chloride ABG Glucose Oxyhemoglobin Carboxyhemoglobin Sodium Potassium Chloride 110.1 H Carbon Dioxide 15 L BUN 109 H Creatinine 4.3 H Glucose 218 H POC Glucose 187 H Hemoglobin A1c Lactic Acid Calcium Phosphorus Magnesium Transferrin AST 53 H ALT Alkaline Phosphatase 148 H Total Creatine Kinase 1000 H CK-MB (CK-2) Serum Total Protein Total Protein 5.2 L Albumin 1.2 L Qnxig-2-Hnrtsnplc Azdvk-7-Shaymieht Gamma Globulins PEP Interpretation HDL Cholesterol TSH Arterial Blood Glucose Arterial Blood Ionized Calcium Urine WBC (Auto) Urine Creatinine Urine Total Protein Crossmatch 04/27/21 04/27/21 04/27/21 11:54 21:08 23:28 WBC RBC Hgb Hct MCH RDW Plt Count Seg Neuts % (Manual) Lymphocytes % (Manual) Nucleated RBC % Seg Neutrophils # Man Lymphocytes # (Manual) PT ABG pH POC ABG pCO2 POC ABG pO2 ABG pO2 ABG O2 Saturation ABG Base Excess ABG Hemoglobin ABG Oxyhemoglobin ABG Potassium ABG Chloride ABG Glucose Oxyhemoglobin Carboxyhemoglobin Sodium Potassium Chloride Carbon Dioxide BUN Creatinine Glucose POC Glucose 147 H 136 H 201 H Hemoglobin A1c Lactic Acid Calcium Phosphorus Magnesium Transferrin AST ALT Alkaline Phosphatase Total Creatine Kinase CK-MB (CK-2) Serum Total Protein Total Protein Albumin Urjlc-2-Ohwztrlra Ubcqi-5-Wkwujjeff Gamma Globulins PEP Interpretation HDL Cholesterol TSH Arterial Blood Glucose Arterial Blood Ionized Calcium Urine WBC (Auto) Urine Creatinine Urine Total Protein Crossmatch 04/28/21 04/28/21 04/28/21 04:00 04:00 05:00 WBC 12.6 H RBC 3.59 L Hgb 9.4 L Hct MCH 26 L RDW 16.6 H Plt Count 111 L Seg Neuts % (Manual) Lymphocytes % (Manual) 1.0 L Nucleated RBC % 4.0 H Seg Neutrophils # Man 11.6 H Lymphocytes # (Manual) 0.1 L PT 15.3 H ABG pH POC ABG pCO2 POC ABG pO2 ABG pO2 ABG O2 Saturation ABG Base Excess ABG Hemoglobin ABG Oxyhemoglobin ABG Potassium ABG Chloride ABG Glucose Oxyhemoglobin Carboxyhemoglobin Sodium 147 H Potassium 3.5 L D Chloride Carbon Dioxide BUN 79 H Creatinine 3.8 H Glucose 194 H POC Glucose Hemoglobin A1c Lactic Acid Calcium 8.1 L Phosphorus Magnesium Transferrin AST ALT Alkaline Phosphatase Total Creatine Kinase CK-MB (CK-2) Serum Total Protein Total Protein Albumin Vyxlq-0-Rcoytqxuu Cucmj-1-Yydoxqkhb Gamma Globulins PEP Interpretation HDL Cholesterol TSH Arterial Blood Glucose Arterial Blood Ionized Calcium Urine WBC (Auto) Urine Creatinine Urine Total Protein Crossmatch 04/28/21 04/28/21 04/28/21 05:08 05:18 11:04 WBC RBC Hgb Hct MCH RDW Plt Count Seg Neuts % (Manual) Lymphocytes % (Manual) Nucleated RBC % Seg Neutrophils # Man Lymphocytes # (Manual) PT ABG pH POC ABG pCO2 POC ABG pO2 66.5 L ABG pO2 ABG O2 Saturation ABG Base Excess ABG Hemoglobin 9.7 L ABG Oxyhemoglobin 92.5 L ABG Potassium 3.2 L ABG Chloride ABG Glucose 200 H Oxyhemoglobin Carboxyhemoglobin Sodium Potassium Chloride Carbon Dioxide BUN Creatinine Glucose POC Glucose 183 H 174 H Hemoglobin A1c Lactic Acid Calcium Phosphorus Magnesium Transferrin AST ALT Alkaline Phosphatase Total Creatine Kinase CK-MB (CK-2) Serum Total Protein Total Protein Albumin Loyjy-2-Ttagwrxbr Nohgo-0-Vwvigwopi Gamma Globulins PEP Interpretation HDL Cholesterol TSH Arterial Blood Glucose 200 H Arterial Blood Ionized Calcium 4.5 L Urine WBC (Auto) Urine Creatinine Urine Total Protein Crossmatch 04/28/21 04/28/21 04/28/21 17:16 21:14 23:41 WBC RBC Hgb Hct MCH RDW Plt Count Seg Neuts % (Manual) Lymphocytes % (Manual) Nucleated RBC % Seg Neutrophils # Man Lymphocytes # (Manual) PT ABG pH POC ABG pCO2 POC ABG pO2 ABG pO2 ABG O2 Saturation ABG Base Excess ABG Hemoglobin ABG Oxyhemoglobin ABG Potassium ABG Chloride ABG Glucose Oxyhemoglobin Carboxyhemoglobin Sodium Potassium Chloride Carbon Dioxide BUN Creatinine Glucose POC Glucose 135 H 134 H 171 H Hemoglobin A1c Lactic Acid Calcium Phosphorus Magnesium Transferrin AST ALT Alkaline Phosphatase Total Creatine Kinase CK-MB (CK-2) Serum Total Protein Total Protein Albumin Xzcpc-9-Vwzcldbie Rsgqb-5-Vtspujuch Gamma Globulins PEP Interpretation HDL Cholesterol TSH Arterial Blood Glucose Arterial Blood Ionized Calcium Urine WBC (Auto) Urine Creatinine Urine Total Protein Crossmatch 04/29/21 04/29/21 04/29/21 01:16 04:00 04:00 WBC 13.3 H RBC 3.12 L Hgb 8.3 L Hct 26.2 L MCH 27 L RDW 16.3 H Plt Count 132 L Seg Neuts % (Manual) Lymphocytes % (Manual) Nucleated RBC % Seg Neutrophils # Man Lymphocytes # (Manual) PT ABG pH POC ABG pCO2 POC ABG pO2 ABG pO2 ABG O2 Saturation ABG Base Excess ABG Hemoglobin ABG Oxyhemoglobin ABG Potassium ABG Chloride ABG Glucose Oxyhemoglobin Carboxyhemoglobin Sodium Potassium Chloride Carbon Dioxide BUN 63 H Creatinine 3.4 H Glucose 249 H POC Glucose 236 H Hemoglobin A1c Lactic Acid Calcium 8.2 L Phosphorus Magnesium Transferrin AST 61 H ALT 71 H Alkaline Phosphatase 170 H Total Creatine Kinase CK-MB (CK-2) Serum Total Protein Total Protein 5.1 L Albumin 1.6 L Foyqq-8-Ezomfcozl Ksnpb-7-Iqptklxhy Gamma Globulins PEP Interpretation HDL Cholesterol TSH Arterial Blood Glucose Arterial Blood Ionized Calcium Urine WBC (Auto) Urine Creatinine Urine Total Protein Crossmatch 04/29/21 04/29/21 04/29/21 11:35 13:30 16:01 WBC RBC Hgb Hct MCH RDW Plt Count Seg Neuts % (Manual) Lymphocytes % (Manual) Nucleated RBC % Seg Neutrophils # Man Lymphocytes # (Manual) PT ABG pH POC ABG pCO2 POC ABG pO2 ABG pO2 ABG O2 Saturation ABG Base Excess ABG Hemoglobin ABG Oxyhemoglobin ABG Potassium ABG Chloride ABG Glucose Oxyhemoglobin Carboxyhemoglobin Sodium Potassium Chloride Carbon Dioxide BUN Creatinine Glucose POC Glucose 320 H 297 H Hemoglobin A1c Lactic Acid Calcium Phosphorus Magnesium Transferrin AST ALT Alkaline Phosphatase Total Creatine Kinase CK-MB (CK-2) Serum Total Protein Total Protein Albumin Qscer-3-Rvrudjowf Xcdoa-3-Plwruugiz Gamma Globulins PEP Interpretation HDL Cholesterol TSH Arterial Blood Glucose Arterial Blood Ionized Calcium Urine WBC (Auto) > 182.0 H Urine Creatinine Urine Total Protein Crossmatch 04/29/21 04/29/21 04/30/21 21:58 23:35 04:00 WBC 11.4 H RBC 3.27 L Hgb 8.7 L Hct 27.5 L MCH 27 L RDW 16.6 H Plt Count Seg Neuts % (Manual) Lymphocytes % (Manual) Nucleated RBC % Seg Neutrophils # Man Lymphocytes # (Manual) PT ABG pH POC ABG pCO2 POC ABG pO2 ABG pO2 ABG O2 Saturation ABG Base Excess ABG Hemoglobin ABG Oxyhemoglobin ABG Potassium ABG Chloride ABG Glucose Oxyhemoglobin Carboxyhemoglobin Sodium Potassium Chloride Carbon Dioxide BUN Creatinine Glucose POC Glucose 260 H 254 H Hemoglobin A1c Lactic Acid Calcium Phosphorus Magnesium Transferrin AST ALT Alkaline Phosphatase Total Creatine Kinase CK-MB (CK-2) Serum Total Protein Total Protein Albumin Uxidq-5-Ozhxkdnsw Fxvru-7-Uhzzbjwjg Gamma Globulins PEP Interpretation HDL Cholesterol TSH Arterial Blood Glucose Arterial Blood Ionized Calcium Urine WBC (Auto) Urine Creatinine Urine Total Protein Crossmatch 04/30/21 04/30/21 04/30/21 04:00 05:17 05:31 WBC RBC Hgb Hct MCH RDW Plt Count Seg Neuts % (Manual) Lymphocytes % (Manual) Nucleated RBC % Seg Neutrophils # Man Lymphocytes # (Manual) PT ABG pH 7.452 H POC ABG pCO2 30.5 L POC ABG pO2 54.5 L ABG pO2 ABG O2 Saturation ABG Base Excess ABG Hemoglobin 10.1 L ABG Oxyhemoglobin 87.4 L ABG Potassium 2.9 L ABG Chloride ABG Glucose 305 H Oxyhemoglobin Carboxyhemoglobin Sodium Potassium 3.1 L Chloride Carbon Dioxide BUN 79 H Creatinine 3.9 H Glucose 275 H POC Glucose 267 H Hemoglobin A1c Lactic Acid Calcium Phosphorus 5.60 H D Magnesium Transferrin AST ALT Alkaline Phosphatase Total Creatine Kinase CK-MB (CK-2) Serum Total Protein Total Protein Albumin Jlvyv-7-Cmhkecwdl Hzsrc-9-Qczlisdzd Gamma Globulins PEP Interpretation HDL Cholesterol TSH Arterial Blood Glucose 305 H Arterial Blood Ionized Calcium Urine WBC (Auto) Urine Creatinine Urine Total Protein Crossmatch 04/30/21 04/30/21 04/30/21 12:31 17:50 22:24 WBC RBC Hgb Hct MCH RDW Plt Count Seg Neuts % (Manual) Lymphocytes % (Manual) Nucleated RBC % Seg Neutrophils # Man Lymphocytes # (Manual) PT ABG pH POC ABG pCO2 POC ABG pO2 ABG pO2 ABG O2 Saturation ABG Base Excess ABG Hemoglobin ABG Oxyhemoglobin ABG Potassium ABG Chloride ABG Glucose Oxyhemoglobin Carboxyhemoglobin Sodium Potassium Chloride Carbon Dioxide BUN Creatinine Glucose POC Glucose 259 H 161 H 146 H Hemoglobin A1c Lactic Acid Calcium Phosphorus Magnesium Transferrin AST ALT Alkaline Phosphatase Total Creatine Kinase CK-MB (CK-2) Serum Total Protein Total Protein Albumin Iintj-4-Ddsuyqtfo Cvfji-8-Gjbaumyat Gamma Globulins PEP Interpretation HDL Cholesterol TSH Arterial Blood Glucose Arterial Blood Ionized Calcium Urine WBC (Auto) Urine Creatinine Urine Total Protein Crossmatch 05/01/21 05/01/21 05/01/21 00:09 03:30 04:00 WBC 12.0 H RBC 3.08 L Hgb 8.1 L Hct 25.6 L MCH 26 L RDW 16.3 H Plt Count Seg Neuts % (Manual) Lymphocytes % (Manual) Nucleated RBC % Seg Neutrophils # Man Lymphocytes # (Manual) PT ABG pH 7.493 H POC ABG pCO2 POC ABG pO2 ABG pO2 ABG O2 Saturation ABG Base Excess ABG Hemoglobin 9.3 L ABG Oxyhemoglobin ABG Potassium ABG Chloride ABG Glucose 167 H Oxyhemoglobin Carboxyhemoglobin 0.4 L Sodium Potassium Chloride Carbon Dioxide BUN Creatinine Glucose POC Glucose 149 H Hemoglobin A1c Lactic Acid Calcium Phosphorus Magnesium Transferrin AST ALT Alkaline Phosphatase Total Creatine Kinase CK-MB (CK-2) Serum Total Protein Total Protein Albumin Csfoy-1-Wwozjaqqk Zqwwq-5-Hjkibkkkk Gamma Globulins PEP Interpretation HDL Cholesterol TSH Arterial Blood Glucose 167 H Arterial Blood Ionized Calcium Urine WBC (Auto) Urine Creatinine Urine Total Protein Crossmatch 05/01/21 05/01/21 05/01/21 04:00 05:48 11:49 WBC RBC Hgb Hct MCH RDW Plt Count Seg Neuts % (Manual) Lymphocytes % (Manual) Nucleated RBC % Seg Neutrophils # Man Lymphocytes # (Manual) PT ABG pH POC ABG pCO2 POC ABG pO2 ABG pO2 ABG O2 Saturation ABG Base Excess ABG Hemoglobin ABG Oxyhemoglobin ABG Potassium ABG Chloride ABG Glucose Oxyhemoglobin Carboxyhemoglobin Sodium Potassium 3.5 L Chloride Carbon Dioxide BUN 62 H Creatinine 3.3 H Glucose 179 H POC Glucose 197 H 167 H Hemoglobin A1c Lactic Acid Calcium 8.3 L Phosphorus Magnesium Transferrin AST ALT Alkaline Phosphatase Total Creatine Kinase CK-MB (CK-2) Serum Total Protein Total Protein Albumin Freqe-4-Nchocaafh Uyuaq-7-Yxcwnymoo Gamma Globulins PEP Interpretation HDL Cholesterol TSH Arterial Blood Glucose Arterial Blood Ionized Calcium Urine WBC (Auto) Urine Creatinine Urine Total Protein Crossmatch 05/01/21 05/01/21 05/02/21 16:24 23:25 04:00 WBC 14.2 H RBC 2.61 L Hgb 6.9 L Hct 22.1 L MCH 27 L RDW 16.1 H Plt Count Seg Neuts % (Manual) Lymphocytes % (Manual) Nucleated RBC % Seg Neutrophils # Man Lymphocytes # (Manual) PT ABG pH POC ABG pCO2 POC ABG pO2 ABG pO2 ABG O2 Saturation ABG Base Excess ABG Hemoglobin ABG Oxyhemoglobin ABG Potassium ABG Chloride ABG Glucose Oxyhemoglobin Carboxyhemoglobin Sodium Potassium Chloride Carbon Dioxide BUN Creatinine Glucose POC Glucose 157 H 147 H Hemoglobin A1c Lactic Acid Calcium Phosphorus Magnesium Transferrin AST ALT Alkaline Phosphatase Total Creatine Kinase CK-MB (CK-2) Serum Total Protein Total Protein Albumin Gwjft-5-Vxmxestae Loavu-4-Sjzclucrn Gamma Globulins PEP Interpretation HDL Cholesterol TSH Arterial Blood Glucose Arterial Blood Ionized Calcium Urine WBC (Auto) Urine Creatinine Urine Total Protein Crossmatch 05/02/21 05/02/21 05/02/21 04:00 04:34 05:23 WBC RBC Hgb Hct MCH RDW Plt Count Seg Neuts % (Manual) Lymphocytes % (Manual) Nucleated RBC % Seg Neutrophils # Man Lymphocytes # (Manual) PT ABG pH 7.487 H POC ABG pCO2 POC ABG pO2 78.6 L ABG pO2 ABG O2 Saturation ABG Base Excess ABG Hemoglobin 11.5 L ABG Oxyhemoglobin ABG Potassium ABG Chloride ABG Glucose 122 H Oxyhemoglobin Carboxyhemoglobin Sodium Potassium Chloride Carbon Dioxide BUN 49 H Creatinine 2.8 H Glucose 117 H POC Glucose 119 H Hemoglobin A1c Lactic Acid Calcium Phosphorus Magnesium Transferrin AST ALT Alkaline Phosphatase Total Creatine Kinase CK-MB (CK-2) Serum Total Protein Total Protein Albumin Jkdqw-2-F[place]aedt Upjvu-3-Tjgkdxtme Gamma Globulins PEP Interpretation HDL Cholesterol TSH Arterial Blood Glucose 122 H Arterial Blood Ionized Calcium Urine WBC (Auto) Urine Creatinine Urine Total Protein Crossmatch 05/02/21 05/02/21 05/02/21 12:00 12:04 17:29 WBC RBC Hgb Hct MCH RDW Plt Count Seg Neuts % (Manual) Lymphocytes % (Manual) Nucleated RBC % Seg Neutrophils # Man Lymphocytes # (Manual) PT ABG pH POC ABG pCO2 POC ABG pO2 ABG pO2 ABG O2 Saturation ABG Base Excess ABG Hemoglobin ABG Oxyhemoglobin ABG Potassium ABG Chloride ABG Glucose Oxyhemoglobin Carboxyhemoglobin Sodium Potassium Chloride Carbon Dioxide BUN Creatinine Glucose POC Glucose 115 H 120 H Hemoglobin A1c Lactic Acid Calcium Phosphorus Magnesium Transferrin AST ALT Alkaline Phosphatase Total Creatine Kinase CK-MB (CK-2) Serum Total Protein Total Protein Albumin Gigqf-2-Zeztvqkxl Jngsf-3-Zibnntfyl Gamma Globulins PEP Interpretation HDL Cholesterol TSH Arterial Blood Glucose Arterial Blood Ionized Calcium Urine WBC (Auto) Urine Creatinine Urine Total Protein Crossmatch See Detail 05/02/21 05/03/21 05/03/21 23:36 04:00 04:00 WBC 13.9 H RBC 3.22 L Hgb 8.7 L Hct 27.4 L MCH 27 L RDW 15.8 H Plt Count Seg Neuts % (Manual) Lymphocytes % (Manual) Nucleated RBC % Seg Neutrophils # Man Lymphocytes # (Manual) PT ABG pH POC ABG pCO2 POC ABG pO2 ABG pO2 ABG O2 Saturation ABG Base Excess ABG Hemoglobin ABG Oxyhemoglobin ABG Potassium ABG Chloride ABG Glucose Oxyhemoglobin Carboxyhemoglobin Sodium 146 H Potassium 3.5 L Chloride 107.5 H Carbon Dioxide BUN 40 H Creatinine 2.5 H Glucose 104 H POC Glucose 130 H Hemoglobin A1c Lactic Acid Calcium Phosphorus Magnesium Transferrin AST 53 H ALT Alkaline Phosphatase 149 H Total Creatine Kinase CK-MB (CK-2) Serum Total Protein Total Protein 5.2 L Albumin 1.5 L Yygcb-2-Yechilsqr Nyyic-4-Tfrjsbnvv Gamma Globulins PEP Interpretation HDL Cholesterol TSH Arterial Blood Glucose Arterial Blood Ionized Calcium Urine WBC (Auto) Urine Creatinine Urine Total Protein Crossmatch 05/03/21 05/04/21 05/04/21 17:26 01:24 04:48 WBC 14.3 H RBC 3.14 L Hgb 8.5 L Hct 26.3 L MCH 27 L RDW 15.8 H Plt Count Seg Neuts % (Manual) Lymphocytes % (Manual) Nucleated RBC % Seg Neutrophils # Man Lymphocytes # (Manual) PT ABG pH POC ABG pCO2 POC ABG pO2 ABG pO2 ABG O2 Saturation ABG Base Excess ABG Hemoglobin ABG Oxyhemoglobin ABG Potassium ABG Chloride ABG Glucose Oxyhemoglobin Carboxyhemoglobin Sodium Potassium Chloride Carbon Dioxide BUN Creatinine Glucose POC Glucose 123 H 146 H Hemoglobin A1c Lactic Acid Calcium Phosphorus Magnesium Transferrin AST ALT Alkaline Phosphatase Total Creatine Kinase CK-MB (CK-2) Serum Total Protein Total Protein Albumin Ulfva-7-Kpdzdjces Difjx-0-Tscsaaybi Gamma Globulins PEP Interpretation HDL Cholesterol TSH Arterial Blood Glucose Arterial Blood Ionized Calcium Urine WBC (Auto) Urine Creatinine Urine Total Protein Crossmatch 05/04/21 05/04/21 05/04/21 04:48 05:15 11:24 WBC RBC Hgb Hct MCH RDW Plt Count Seg Neuts % (Manual) Lymphocytes % (Manual) Nucleated RBC % Seg Neutrophils # Man Lymphocytes # (Manual) PT ABG pH POC ABG pCO2 POC ABG pO2 ABG pO2 ABG O2 Saturation ABG Base Excess ABG Hemoglobin ABG Oxyhemoglobin ABG Potassium ABG Chloride ABG Glucose Oxyhemoglobin Carboxyhemoglobin Sodium Potassium 3.5 L Chloride Carbon Dioxide BUN 58 H Creatinine 3.4 H Glucose 168 H POC Glucose 162 H 145 H Hemoglobin A1c Lactic Acid Calcium Phosphorus 5.30 H Magnesium Transferrin AST ALT Alkaline Phosphatase Total Creatine Kinase CK-MB (CK-2) Serum Total Protein Total Protein Albumin Pmtii-1-Esrzzjtxl Vvczc-8-Jpgtdelgv Gamma Globulins PEP Interpretation HDL Cholesterol 24 L TSH Arterial Blood Glucose Arterial Blood Ionized Calcium Urine WBC (Auto) Urine Creatinine Urine Total Protein Crossmatch 05/04/21 05/04/21 05/05/21 16:01 23:32 04:00 WBC RBC Hgb Hct MCH RDW Plt Count Seg Neuts % (Manual) Lymphocytes % (Manual) Nucleated RBC % Seg Neutrophils # Man Lymphocytes # (Manual) PT ABG pH POC ABG pCO2 POC ABG pO2 ABG pO2 ABG O2 Saturation ABG Base Excess ABG Hemoglobin ABG Oxyhemoglobin ABG Potassium ABG Chloride ABG Glucose Oxyhemoglobin Carboxyhemoglobin Sodium Potassium 3.4 L Chloride Carbon Dioxide BUN 43 H Creatinine 2.7 H Glucose 124 H POC Glucose 148 H 134 H Hemoglobin A1c Lactic Acid Calcium 8.2 L Phosphorus Magnesium Transferrin AST ALT Alkaline Phosphatase Total Creatine Kinase CK-MB (CK-2) Serum Total Protein Total Protein Albumin Txfpd-7-Oyuwotlhi Dorhf-7-Mlkvnqvam Gamma Globulins PEP Interpretation HDL Cholesterol TSH Arterial Blood Glucose Arterial Blood Ionized Calcium Urine WBC (Auto) Urine Creatinine Urine Total Protein Crossmatch 05/05/21 05/06/21 05/06/21 05:14 00:01 04:00 WBC RBC Hgb Hct MCH RDW Plt Count Seg Neuts % (Manual) Lymphocytes % (Manual) Nucleated RBC % Seg Neutrophils # Man Lymphocytes # (Manual) PT ABG pH POC ABG pCO2 POC ABG pO2 ABG pO2 ABG O2 Saturation ABG Base Excess ABG Hemoglobin ABG Oxyhemoglobin ABG Potassium ABG Chloride ABG Glucose Oxyhemoglobin Carboxyhemoglobin Sodium Potassium 3.2 L Chloride Carbon Dioxide BUN 56 H Creatinine 3.0 H Glucose 110 H POC Glucose 120 H 120 H Hemoglobin A1c Lactic Acid Calcium 7.8 L Phosphorus 4.60 H Magnesium Transferrin AST ALT Alkaline Phosphatase Total Creatine Kinase CK-MB (CK-2) Serum Total Protein Total Protein Albumin Fqzds-9-Injhtnfyk Wqbyg-1-Smpkijrds Gamma Globulins PEP Interpretation HDL Cholesterol TSH Arterial Blood Glucose Arterial Blood Ionized Calcium Urine WBC (Auto) Urine Creatinine Urine Total Protein Crossmatch 05/06/21 05/06/21 05/06/21 04:27 05:15 17:37 WBC RBC 3.03 L Hgb 8.3 L Hct 25.4 L MCH 27 L RDW Plt Count Seg Neuts % (Manual) Lymphocytes % (Manual) Nucleated RBC % Seg Neutrophils # Man Lymphocytes # (Manual) PT ABG pH POC ABG pCO2 POC ABG pO2 ABG pO2 ABG O2 Saturation ABG Base Excess ABG Hemoglobin ABG Oxyhemoglobin ABG Potassium ABG Chloride ABG Glucose Oxyhemoglobin Carboxyhemoglobin Sodium Potassium Chloride Carbon Dioxide BUN Creatinine Glucose POC Glucose 137 H 132 H Hemoglobin A1c Lactic Acid Calcium Phosphorus Magnesium Transferrin AST ALT Alkaline Phosphatase Total Creatine Kinase CK-MB (CK-2) Serum Total Protein Total Protein Albumin Zapao-5-Cmfmtdgjo Eneth-4-Nskrkenyl Gamma Globulins PEP Interpretation HDL Cholesterol TSH Arterial Blood Glucose Arterial Blood Ionized Calcium Urine WBC (Auto) Urine Creatinine Urine Total Protein Crossmatch 05/07/21 05/07/21 05/07/21 00:30 04:23 04:23 WBC RBC Hgb Hct MCH RDW Plt Count Seg Neuts % (Manual) Lymphocytes % (Manual) Nucleated RBC % Seg Neutrophils # Man Lymphocytes # (Manual) PT ABG pH POC ABG pCO2 POC ABG pO2 ABG pO2 ABG O2 Saturation ABG Base Excess ABG Hemoglobin ABG Oxyhemoglobin ABG Potassium ABG Chloride ABG Glucose Oxyhemoglobin Carboxyhemoglobin Sodium Potassium 3.4 L Chloride 107.1 H Carbon Dioxide BUN 28 H Creatinine 1.9 H Glucose 165 H POC Glucose 121 H Hemoglobin A1c Lactic Acid Calcium 8.2 L Phosphorus Magnesium 1.60 L Transferrin AST ALT Alkaline Phosphatase Total Creatine Kinase CK-MB (CK-2) Serum Total Protein Total Protein Albumin Patrx-1-Lhdkcnfdl Tbcec-5-Rumiwhptt Gamma Globulins PEP Interpretation HDL Cholesterol TSH Arterial Blood Glucose Arterial Blood Ionized Calcium Urine WBC (Auto) Urine Creatinine Urine Total Protein Crossmatch 05/07/21 05/07/21 05/07/21 05:30 11:37 17:28 WBC RBC Hgb Hct MCH RDW Plt Count Seg Neuts % (Manual) Lymphocytes % (Manual) Nucleated RBC % Seg Neutrophils # Man Lymphocytes # (Manual) PT ABG pH POC ABG pCO2 POC ABG pO2 ABG pO2 ABG O2 Saturation ABG Base Excess ABG Hemoglobin ABG Oxyhemoglobin ABG Potassium ABG Chloride ABG Glucose Oxyhemoglobin Carboxyhemoglobin Sodium Potassium Chloride Carbon Dioxide BUN Creatinine Glucose POC Glucose 205 H 148 H 170 H Hemoglobin A1c Lactic Acid Calcium Phosphorus Magnesium Transferrin AST ALT Alkaline Phosphatase Total Creatine Kinase CK-MB (CK-2) Serum Total Protein Total Protein Albumin Qnafo-9-Htzslpxag Iggbq-7-Lawwmolie Gamma Globulins PEP Interpretation HDL Cholesterol TSH Arterial Blood Glucose Arterial Blood Ionized Calcium Urine WBC (Auto) Urine Creatinine Urine Total Protein Crossmatch 05/07/21 05/08/21 05/08/21 23:57 05:12 05:12 WBC 11.2 H RBC 3.01 L Hgb 8.2 L Hct 25.5 L MCH 27 L RDW 15.4 H Plt Count Seg Neuts % (Manual) Lymphocytes % (Manual) Nucleated RBC % Seg Neutrophils # Man Lymphocytes # (Manual) PT ABG pH POC ABG pCO2 POC ABG pO2 ABG pO2 ABG O2 Saturation ABG Base Excess ABG Hemoglobin ABG Oxyhemoglobin ABG Potassium ABG Chloride ABG Glucose Oxyhemoglobin Carboxyhemoglobin Sodium Potassium 3.4 L Chloride Carbon Dioxide BUN 37 H Creatinine 2.1 H Glucose 160 H POC Glucose 172 H Hemoglobin A1c Lactic Acid Calcium 8.3 L Phosphorus Magnesium Transferrin AST ALT Alkaline Phosphatase Total Creatine Kinase CK-MB (CK-2) Serum Total Protein Total Protein Albumin Uuzqd-0-Ofqbrrbpd Xzrnp-9-Lratwzudj Gamma Globulins PEP Interpretation HDL Cholesterol TSH Arterial Blood Glucose Arterial Blood Ionized Calcium Urine WBC (Auto) Urine Creatinine Urine Total Protein Crossmatch 05/08/21 05/08/21 05/08/21 05:20 09:34 11:35 WBC RBC Hgb Hct MCH RDW Plt Count Seg Neuts % (Manual) Lymphocytes % (Manual) Nucleated RBC % Seg Neutrophils # Man Lymphocytes # (Manual) PT ABG pH POC ABG pCO2 POC ABG pO2 ABG pO2 ABG O2 Saturation ABG Base Excess ABG Hemoglobin ABG Oxyhemoglobin ABG Potassium ABG Chloride ABG Glucose Oxyhemoglobin Carboxyhemoglobin Sodium Potassium Chloride Carbon Dioxide BUN Creatinine Glucose POC Glucose 148 H 208 H Hemoglobin A1c Lactic Acid Calcium Phosphorus Magnesium Transferrin AST ALT Alkaline Phosphatase Total Creatine Kinase CK-MB (CK-2) Serum Total Protein Total Protein Albumin Iusvw-9-Jaqcxrbuj Npiud-7-Qqiofwrrz Gamma Globulins PEP Interpretation HDL Cholesterol TSH Arterial Blood Glucose Arterial Blood Ionized Calcium Urine WBC (Auto) Urine Creatinine 56.0 H Urine Total Protein Crossmatch 05/08/21 05/08/21 05/09/21 16:55 23:57 05:30 WBC 12.8 H RBC 2.98 L Hgb 8.1 L Hct 25.4 L MCH 27 L RDW 15.4 H Plt Count Seg Neuts % (Manual) Lymphocytes % (Manual) Nucleated RBC % Seg Neutrophils # Man Lymphocytes # (Manual) PT ABG pH POC ABG pCO2 POC ABG pO2 ABG pO2 ABG O2 Saturation ABG Base Excess ABG Hemoglobin ABG Oxyhemoglobin ABG Potassium ABG Chloride ABG Glucose Oxyhemoglobin Carboxyhemoglobin Sodium Potassium Chloride Carbon Dioxide BUN Creatinine Glucose POC Glucose 179 H 183 H Hemoglobin A1c Lactic Acid Calcium Phosphorus Magnesium Transferrin AST ALT Alkaline Phosphatase Total Creatine Kinase CK-MB (CK-2) Serum Total Protein Total Protein Albumin Iebfi-2-Thjuubdaj Uyzqu-0-Egwbrveuv Gamma Globulins PEP Interpretation HDL Cholesterol TSH Arterial Blood Glucose Arterial Blood Ionized Calcium Urine WBC (Auto) Urine Creatinine Urine Total Protein Crossmatch 05/09/21 05/09/21 05/09/21 05:30 05:31 11:24 WBC RBC Hgb Hct MCH RDW Plt Count Seg Neuts % (Manual) Lymphocytes % (Manual) Nucleated RBC % Seg Neutrophils # Man Lymphocytes # (Manual) PT ABG pH POC ABG pCO2 POC ABG pO2 ABG pO2 ABG O2 Saturation ABG Base Excess ABG Hemoglobin ABG Oxyhemoglobin ABG Potassium ABG Chloride ABG Glucose Oxyhemoglobin Carboxyhemoglobin Sodium 150 H Potassium 3.2 L Chloride 110.2 H Carbon Dioxide BUN 37 H Creatinine 1.8 H Glucose 191 H POC Glucose 120 H 197 H Hemoglobin A1c Lactic Acid Calcium Phosphorus Magnesium Transferrin AST ALT Alkaline Phosphatase Total Creatine Kinase CK-MB (CK-2) Serum Total Protein Total Protein Albumin Vpiri-9-Zhyvuiizb Tpxou-5-Nvpkqegga Gamma Globulins PEP Interpretation HDL Cholesterol TSH Arterial Blood Glucose Arterial Blood Ionized Calcium Urine WBC (Auto) Urine Creatinine Urine Total Protein Crossmatch 05/09/21 05/09/21 05/10/21 15:49 23:42 05:00 WBC RBC 2.99 L Hgb 8.2 L Hct 25.6 L MCH RDW 15.4 H Plt Count 456 H Seg Neuts % (Manual) Lymphocytes % (Manual) Nucleated RBC % Seg Neutrophils # Man Lymphocytes # (Manual) PT ABG pH POC ABG pCO2 POC ABG pO2 ABG pO2 ABG O2 Saturation ABG Base Excess ABG Hemoglobin ABG Oxyhemoglobin ABG Potassium ABG Chloride ABG Glucose Oxyhemoglobin Carboxyhemoglobin Sodium Potassium Chloride Carbon Dioxide BUN Creatinine Glucose POC Glucose 318 H 152 H Hemoglobin A1c Lactic Acid Calcium Phosphorus Magnesium Transferrin AST ALT Alkaline Phosphatase Total Creatine Kinase CK-MB (CK-2) Serum Total Protein Total Protein Albumin Whsox-6-Fxtujjruv Traih-8-Jtafocgfw Gamma Globulins PEP Interpretation HDL Cholesterol TSH Arterial Blood Glucose Arterial Blood Ionized Calcium Urine WBC (Auto) Urine Creatinine Urine Total Protein Crossmatch 05/10/21 05/10/21 05/10/21 05:00 05:30 12:08 WBC RBC Hgb Hct MCH RDW Plt Count Seg Neuts % (Manual) Lymphocytes % (Manual) Nucleated RBC % Seg Neutrophils # Man Lymphocytes # (Manual) PT ABG pH POC ABG pCO2 POC ABG pO2 ABG pO2 ABG O2 Saturation ABG Base Excess ABG Hemoglobin ABG Oxyhemoglobin ABG Potassium ABG Chloride ABG Glucose Oxyhemoglobin Carboxyhemoglobin Sodium 148 H Potassium 3.4 L Chloride 110.5 H Carbon Dioxide BUN 36 H Creatinine 1.6 H Glucose 185 H POC Glucose 168 H 193 H Hemoglobin A1c Lactic Acid Calcium Phosphorus Magnesium Transferrin AST ALT Alkaline Phosphatase Total Creatine Kinase CK-MB (CK-2) Serum Total Protein Total Protein Albumin Glefu-7-Cnrohavcq Vklou-6-Thfgahrkc Gamma Globulins PEP Interpretation HDL Cholesterol TSH Arterial Blood Glucose Arterial Blood Ionized Calcium Urine WBC (Auto) Urine Creatinine Urine Total Protein Crossmatch 05/10/21 05/10/21 05/11/21 18:02 23:25 05:40 WBC RBC 3.11 L Hgb 8.3 L Hct 26.6 L MCH 27 L RDW 15.7 H Plt Count 489 H Seg Neuts % (Manual) Lymphocytes % (Manual) Nucleated RBC % Seg Neutrophils # Man Lymphocytes # (Manual) PT ABG pH POC ABG pCO2 POC ABG pO2 ABG pO2 ABG O2 Saturation ABG Base Excess ABG Hemoglobin ABG Oxyhemoglobin ABG Potassium ABG Chloride ABG Glucose Oxyhemoglobin Carboxyhemoglobin Sodium Potassium Chloride Carbon Dioxide BUN Creatinine Glucose POC Glucose 205 H 171 H Hemoglobin A1c Lactic Acid Calcium Phosphorus Magnesium Transferrin AST ALT Alkaline Phosphatase Total Creatine Kinase CK-MB (CK-2) Serum Total Protein Total Protein Albumin Xngnc-4-Yzjjalbip Aixzo-6-Seuyzldsj Gamma Globulins PEP Interpretation HDL Cholesterol TSH Arterial Blood Glucose Arterial Blood Ionized Calcium Urine WBC (Auto) Urine Creatinine Urine Total Protein Crossmatch 05/11/21 05/11/21 05/11/21 05:40 11:45 18:23 WBC RBC Hgb Hct MCH RDW Plt Count Seg Neuts % (Manual) Lymphocytes % (Manual) Nucleated RBC % Seg Neutrophils # Man Lymphocytes # (Manual) PT ABG pH POC ABG pCO2 POC ABG pO2 ABG pO2 ABG O2 Saturation ABG Base Excess ABG Hemoglobin ABG Oxyhemoglobin ABG Potassium ABG Chloride ABG Glucose Oxyhemoglobin Carboxyhemoglobin Sodium 149 H Potassium Chloride 112.0 H Carbon Dioxide BUN 36 H Creatinine 1.4 H Glucose 164 H POC Glucose 176 H 203 H Hemoglobin A1c Lactic Acid Calcium Phosphorus Magnesium Transferrin AST ALT Alkaline Phosphatase Total Creatine Kinase CK-MB (CK-2) Serum Total Protein Total Protein Albumin Kxtga-9-Adqjifnpw Cpfqj-9-Rfalfuujt Gamma Globulins PEP Interpretation HDL Cholesterol TSH Arterial Blood Glucose Arterial Blood Ionized Calcium Urine WBC (Auto) Urine Creatinine Urine Total Protein Crossmatch 05/12/21 05/12/21 05/12/21 00:30 04:10 04:10 WBC RBC 3.13 L Hgb 8.4 L Hct 26.6 L MCH 27 L RDW 15.7 H Plt Count 496 H Seg Neuts % (Manual) Lymphocytes % (Manual) Nucleated RBC % Seg Neutrophils # Man Lymphocytes # (Manual) PT ABG pH POC ABG pCO2 POC ABG pO2 ABG pO2 ABG O2 Saturation ABG Base Excess ABG Hemoglobin ABG Oxyhemoglobin ABG Potassium ABG Chloride ABG Glucose Oxyhemoglobin Carboxyhemoglobin Sodium Potassium Chloride Carbon Dioxide BUN 36 H Creatinine 1.3 H Glucose 182 H POC Glucose 161 H Hemoglobin A1c Lactic Acid Calcium 8.3 L Phosphorus Magnesium Transferrin AST ALT Alkaline Phosphatase Total Creatine Kinase CK-MB (CK-2) Serum Total Protein Total Protein Albumin Hcwuw-7-Agiyduyyf Lpsph-0-Rzevrtgxp Gamma Globulins PEP Interpretation HDL Cholesterol TSH Arterial Blood Glucose Arterial Blood Ionized Calcium Urine WBC (Auto) Urine Creatinine Urine Total Protein Crossmatch 05/12/21 05/12/21 05/12/21 05:24 11:50 17:45 WBC RBC Hgb Hct MCH RDW Plt Count Seg Neuts % (Manual) Lymphocytes % (Manual) Nucleated RBC % Seg Neutrophils # Man Lymphocytes # (Manual) PT ABG pH POC ABG pCO2 POC ABG pO2 ABG pO2 ABG O2 Saturation ABG Base Excess ABG Hemoglobin ABG Oxyhemoglobin ABG Potassium ABG Chloride ABG Glucose Oxyhemoglobin Carboxyhemoglobin Sodium Potassium Chloride Carbon Dioxide BUN Creatinine Glucose POC Glucose 177 H 180 H 187 H Hemoglobin A1c Lactic Acid Calcium Phosphorus Magnesium Transferrin AST ALT Alkaline Phosphatase Total Creatine Kinase CK-MB (CK-2) Serum Total Protein Total Protein Albumin Tqtrg-1-Zxlnzdwfx Hpiip-8-Lrwjbhnkb Gamma Globulins PEP Interpretation HDL Cholesterol TSH Arterial Blood Glucose Arterial Blood Ionized Calcium Urine WBC (Auto) Urine Creatinine Urine Total Protein Crossmatch 05/12/21 05/13/21 05/13/21 23:20 04:24 04:24 WBC RBC 3.10 L Hgb 8.5 L Hct 26.3 L MCH RDW 15.6 H Plt Count 503 H Seg Neuts % (Manual) Lymphocytes % (Manual) Nucleated RBC % Seg Neutrophils # Man Lymphocytes # (Manual) PT ABG pH POC ABG pCO2 POC ABG pO2 ABG pO2 ABG O2 Saturation ABG Base Excess ABG Hemoglobin ABG Oxyhemoglobin ABG Potassium ABG Chloride ABG Glucose Oxyhemoglobin Carboxyhemoglobin Sodium Potassium Chloride Carbon Dioxide BUN 30 H Creatinine Glucose 138 H POC Glucose 142 H Hemoglobin A1c Lactic Acid Calcium 8.3 L Phosphorus Magnesium 1.60 L Transferrin AST ALT Alkaline Phosphatase Total Creatine Kinase CK-MB (CK-2) Serum Total Protein Total Protein Albumin Erhui-7-Tfzfeupyt Srzlk-2-Ahhlzlteg Gamma Globulins PEP Interpretation HDL Cholesterol TSH Arterial Blood Glucose Arterial Blood Ionized Calcium Urine WBC (Auto) Urine Creatinine Urine Total Protein Crossmatch 05/13/21 05:29 WBC RBC Hgb Hct MCH RDW Plt Count Seg Neuts % (Manual) Lymphocytes % (Manual) Nucleated RBC % Seg Neutrophils # Man Lymphocytes # (Manual) PT ABG pH POC ABG pCO2 POC ABG pO2 ABG pO2 ABG O2 Saturation ABG Base Excess ABG Hemoglobin ABG Oxyhemoglobin ABG Potassium ABG Chloride ABG Glucose Oxyhemoglobin Carboxyhemoglobin Sodium Potassium Chloride Carbon Dioxide BUN Creatinine Glucose POC Glucose 128 H Hemoglobin A1c Lactic Acid Calcium Phosphorus Magnesium Transferrin AST ALT Alkaline Phosphatase Total Creatine Kinase CK-MB (CK-2) Serum Total Protein Total Protein Albumin Ufiwy-7-Olbciuzpr Kcvhz-7-Nmnuitmlp Gamma Globulins PEP Interpretation HDL Cholesterol TSH Arterial Blood Glucose Arterial Blood Ionized Calcium Urine WBC (Auto) Urine Creatinine Urine Total Protein Crossmatch
--- NOTE | 2021-05-13 12:24 | Progress Note ---
<LISA CLIFTON - Last Filed: 05/13/21 12:19> Assessment and Plan Assessment and plan: This is a 80-year-old female, skilled nursing resident with past medical history of GERD, hypothyroidism, hyperlipidemia, schizophrenia and dementia admitted with hypothermia, hyponatremia, hypokalemia, lactic acidosis, acute kidney injury, rhabdomyolysis and hyperosmolar nonketotic state. Hospital Course to Date: 04/21: Given 1 L LR bolus per nephrology and D5W increased to 125 mL's per hour, COVID-19 PCR pending, CXR and ABG ordered as patient was weaned from BiPAP to 3 L nasal cannula however was uptitrated back to nonrebreather. Will obtain blood cultures x2 given her leukocytosis and hypothermia. Replace potassium. Neurosurgery and neurology consulted and Luther catheter placed. 04/22: Improvement to sodium noted, slight hypokalemia which will be repleted, slight improvement to renal function, LFTs and rhabdomyolysis. Seen by neurosurgery today. Patient still making urine. transition to ssi and start TF as AG 15 04/23/2021: Given racemic epinephrine again due to stridor, continue IV fluids per nephrology, continue to trend sodium and BMP. 04/24/2021: 70/30 increased d/t hyperglycemia but recent BMP showed BG>300, gave additional 5 units IV insulin and ordered 5 units TID scheduled. However after IV insulin her PCOT was 400. Start on insulin gtt for hyperglycemia. Per RN she was not of IV D5 overniught d/t having one IV which was needed for emergency. Day RN did start dextrose. Remains with hyperglycemia. 04/25: Patient obtunded, withdrawal to pain only, on 50%Venti mask SPO2 abobe 92%. Plan to transition to SubQ insulin. Patient with mild hypernatremia this am, FWF added, will stop IVF for now. 04/26: Patient s/p intubation this am. Mentation is unchanged, plan for MRI brain today per NeuroSurg. Still hyperglycemic, hypernatremia improved, D5W D/katlyn, and basal insulin adjusted. 04/27: Bronch overnight. CXR with mild improvement. D/w Nephro plan for HD today, RIJ VasCath inserted. MRI on hold per [facility] patient is too unstable at this time, plan for possible spinal drained tomorrow to see if mentation will improve. 04/28: Tolerated HD overnight, only UF. Mentation remains the same. D/w CCM plan for possible large volume spinal tap under fluoroscopy today. Plan for possible HD again today. Continue FWF for elevated Na. 04/29: MARY overnight. Plan for spinal tap this am. febrile overnight with leukocytosis, remains on pressors and more tachycardic now. Will panculture patient, and empiric IV was initiated. Remains hyperglycemic, basal insulin adjusted. 04/30: Patient's mentation remains unchanged post spinal tap. Plan for possible MRI brain next week. Afebrile overnight and leukocytosis improved, However, vent settings are going up and this am ABG with hypoxia, this am CXR with worsening opacities. Patient with 3+ pitting edema. Continue HD per Nephro. Continue current empiric IV abx, f/u on culture data, might need to get ID on board if worsen. 05/01: Mentation is unchanged, still on pressors. Febrile this am, continue IV abx, ID consulted. 3L out yesterday, plan for HD again tomorrow. Plt count improved, might need to restart AC, will D/w CCM. 05/02: No change in mentation and she is now noted to be decorticating to pain -> MRI brain ordered. Scheduled for HD today. ID consult completed. 05/03: Neurology consulted given MRI findings of multiple acute CVAs, LINCOLN ordered, EEG pending, started on aspirin and Lipitor. updated POA 05/04: Received hemodialysis today, will schedule for LINCOLN today however HD was ongoing at the time neurology will obtain MRA brain and neck then consider LINCOLN, increasing midodrine to aid in weaning Levophed. 05/05: MRA/MRV completed today, urine culture grew Roselyn and was started on fluconazole, LINCOLN tentatively scheduled for tomorrow. Resume tube feeding and n.p.o. at midnight. 05/06: Patient was scheduled for LINCOLN which was attempted however patient became hypotensive and the procedure was aborted. She received HD today. No acute events reported overnight. Tube feedings resumed. 05/07: No acute changes overnight. 05/08: May need permacath, goals of care to be discussed and will likely happen after neuro recommendations tomorrow since LINCOLN was unable to be completed. No acute events overnight. Replete mag, decreased midodrine. 05/09: MARY overnight. Patient remains unresponsive. No HD today per Nephro, low K repleted. D/w CCM plan for possible conference call with patient's POA tomorrow to further discuss plan of care and possible alternatives. 05/10: Mentation unchanged. Given patient multiple failed PST, plan for possible trach and PEG per CCM. General Surgery consulted. No plan for HD today, low K repleted. Proph AC resumed, plt is stable. 05/11: Na remains elevated, continue FWF. Mildly hypertensive, continue PRN Hydral for SBP> 170. Possible trach and Peg on sunday by Gen. Surgery. 05/12: Renal function continue to improve, no indication for any more HD, VasCath D/katlyn. Hypernatremia improved, D/C IVF continue FWF. Hypertensive overnight, Norvasc added and PRN labetalol for SBP greater than 170. NPO After midnight tonight for possible trach and PEG in the am by Gen surgery 05/13: MARY overnight. Plan for Trach and PEG today by Gen. Surgery. Per case management arrangement made for possible LTAC tomorrow. Assessment and Plan #Neuro:Acute CVA #Acute metabolic encephalopathy #Normal Pressure Hydrocephalus -CT head shows lateral ventricles and third ventricle dilation, raises possibility of normal pressure hydrocephalus -Neurology and neurosurgery consulted, appreciate recommendations -neurosurgery no acute interventions -04/29 s/p spinal tap- 24ml out -MRI brain with multiple ischemic events in both hemisphere, possible embolic event with water shed infarct can not be totally excluded. -Continue ASA and lipitor -Maintain sleep-wake cycle -Avoid delirium -Hold off on restarting home antipsychotic medications #Hypotension-improved #Tachycardia #Sepsis -Was hypotensive, multifactorial-hypovelemia vs infectious process -S/p pressors -BP is now stable, Midodrine D/C -Norvasc added & PRN Labetalol -Continue blood pressure monitor per protocol -Maintain MAP above 65 and SBP less than 170 #Respiratory: Acute hypoxic respiratory failure #CAP #Possible Aspiration -S/p intubation this am 04/26 -Vent setting:PRVC-30%,6,14,450 -04/26 s/p bronchoscopy, this am CXR with mild improvement -No ABG this am -CCM consulted, appreciate recommendations -VAP bundle addressed -Aspiration precaution HOB above 30 -PRN ABG and CXR per CCM -Continue SPO2 monitoring for SPO2 goal above 92% -Multiple failed PST -plan for possible trach/PEG today -Gen. Surgery consulted #GI:Transaminitis #Hypoalbuminemia -Presented with transaminitis -Trend LFTs -Continue enteral nutrition- NPO AMN tonight -Ntr consult for TF -BR: Senokot -PPI #:Acute Kidney Injury (SYED) likely secondary to vasomotor nephropathy #Hypokalemia #Hypernatremia-improved #Urinary Retention-resolved -FeNA 0.50 indicating prerenal sate -Nephrology and CCM consulted, appreciate recommendations -04/27 vascath inserted and HD initiated, patient tolerated it well -Continue HD per Nephro -No HD per Nephro -Luther catheter placed for strict intake and output -Avoid nephrotoxic medication, Renally dose medications -K repleted -Continue to monitor and replace electrolytes as needed -Trend BMP #ID:CAP #Leukocytosis-improved #Urinary Tract Infection(UTI) -Patient presented hypothemic -CXR shows increased interstitial prominence of densities in bilateral lungs -COVID-19 PCR negative -Blood culture x2 NGTD -Antibiotic therapy course ended today 04/25 -Repeat Blood culture, and sputum culture NGTD -UA with pyuria, culture + yeast -Monitor WBC and fever curve -Daily CBC monitor -ID consulted #Endo:Hyperglycemia #s/p HHNK -Transition to SubQ insulin -Continue high dose SSI Q6hrs -Continue Basal, NPH -Avoid hypoglycemia #Heme:Thrombocytopenia-resolved -Presented with low plt, unknown etiology -Plt count improved -Resumed AC- Heparin SubQ -Trend CBC -Transfuse to hemoglobin less than 7 -Monitor for bleeding -r/o DVT, BE doppler neg -SCD to bilateral lower extremities while in bed DISPOSITION: LTAC Placement, possibly tomorrow The high probability of a clinically significant, sudden or life threatening deterioration of the [Multiple] system(s) required my full and direct attention, intervention and personal management. The aggregate critical care time was [40] minutes. This time is in addition to time spent performing reported procedures but includes the following: [x] Data Review and interpretation [x] Patient assessment and monitoring of vital signs [x] Documentation [x] Medication orders and management Disposition Plan: ICU Total Time Spent with Patient (Minutes): 40 History Interval history: Patient seen and examined at the bedside. Remains intubated and unresponsive. MARY overnight Hospitalist Physical - Constitutional Vitals: Temp Pulse Resp BP Pulse Ox 98.9 F 95 H 14 131/63 98 05/13/21 12:06 05/13/21 10:20 05/13/21 09:01 05/13/21 10:20 05/13/21 10:20 General appearance: Present: no acute distress, other (Intubated, unresponsive) - EENT Eyes: Present: PERRL - Respiratory Respiratory effort: normal Respiratory: bilateral: rhonchi - Cardiovascular Rhythm: regular Heart Sounds: Present: S1 & S2 - Extremities Extremities: no ischemia, pulses intact, pulses symmetrical Extremity abnormal: edema - Peripheral Assessment Generalized Edema Type: Pitting Edema Degree: 2+ Capillary Refill: < 3 seconds Skin Temperature: Warm Peripheral Pulses: within normal limits - Abdominal General gastrointestinal: soft, non-distended, normal bowel sounds - Integumentary Integumentary: Present: warm, dry - Psychiatric Psychiatric: other (Intubated, unresponsive) - Neurologic Neurologic: other (Intubated, unresponsive) - Allied Health Allied health notes reviewed: nursing, case management HEART Score - HEART Score Troponin: Troponin T 0.021 ng/mL (0.00-0.029) 04/20/21 17:10 Results - Labs CBC & Chem 7: 05/13/21 04:24 05/13/21 04:24 Labs: Laboratory Last Values WBC 9.4 K/mm3 (4.5-11.0) 05/13/21 04:24 RBC 3.10 M/mm3 (3.65-5.03) L 05/13/21 04:24 Hgb 8.5 gm/dl (10.1-14.3) L 05/13/21 04:24 Hct 26.3 % (30.3-42.9) L 05/13/21 04:24 MCV 85 fl (79-97) 05/13/21 04:24 MCH 28 pg (28-32) 05/13/21 04:24 MCHC 32 % (30-34) 05/13/21 04:24 RDW 15.6 % (13.2-15.2) H 05/13/21 04:24 Plt Count 503 K/mm3 (140-440) H 05/13/21 04:24 Add Manual Diff Complete 04/28/21 04:00 Total Counted 100 04/28/21 04:00 Seg Neutrophils % Acid Cutter 04/28/21 04:00 Seg Neuts % (Manual) 77.0 % (40.0-70.0) H 04/26/21 09:33 Band Neutrophils % 2.0 % 04/28/21 04:00 Lymphocytes % (Manual) 1.0 % (13.4-35.0) L 04/28/21 04:00 Reactive Lymphs % (Man) 0 % 04/28/21 04:00 Monocytes % (Manual) 1.0 % (0.0-7.3) 04/28/21 04:00 Eosinophils % (Manual) 3.0 % (0.0-4.3) 04/28/21 04:00 Metamyelocytes % 1.0 % 04/28/21 04:00 Myelocytes % 0 % 04/28/21 04:00 Promyelocytes % 0 % 04/28/21 04:00 Blast Cells % 0 % 04/28/21 04:00 Nucleated RBC % 4.0 % (0.0-0.9) H 04/28/21 04:00 Seg Neutrophils # Man 11.6 K/mm3 (1.8-7.7) H 04/28/21 04:00 Band Neutrophils # 0.3 K/mm3 04/28/21 04:00 Lymphocytes # (Manual) 0.1 K/mm3 (1.2-5.4) L 04/28/21 04:00 Abs React Lymphs (Man) 0.0 K/mm3 04/28/21 04:00 Monocytes # (Manual) 0.1 K/mm3 (0.0-0.8) 04/28/21 04:00 Eosinophils # (Manual) 0.4 K/mm3 (0.0-0.4) 04/28/21 04:00 Basophils # (Manual) 0.0 K/mm3 (0.0-0.1) 04/28/21 04:00 Metamyelocytes # 0.1 K/mm3 04/28/21 04:00 Myelocytes # 0.0 K/mm3 04/28/21 04:00 Promyelocytes # 0.0 K/mm3 04/28/21 04:00 Blast Cells # 0.0 K/mm3 04/28/21 04:00 WBC Morphology Not Reportable 04/28/21 04:00 Hypersegmented Neuts Not Reportable 04/28/21 04:00 Hyposegmented Neuts Not Reportable 04/28/21 04:00 Hypogranular Neuts Not Reportable 04/28/21 04:00 Smudge Cells Not Reportable 04/28/21 04:00 Toxic Granulation Not Reportable 04/28/21 04:00 Toxic Vacuolation Not Reportable 04/28/21 04:00 Dohle Bodies Not Reportable 04/28/21 04:00 Pelger-Huet Anomaly Not Reportable 04/28/21 04:00 Moni Rods Not Reportable 04/28/21 04:00 Platelet Estimate Consistent w auto 04/28/21 04:00 Clumped Platelets Not Reportable 04/28/21 04:00 Plt Clumps, EDTA Not Reportable 04/28/21 04:00 Large Platelets Few 04/28/21 04:00 Giant Platelets Not Reportable 04/28/21 04:00 Platelet Satelliting Not Reportable 04/28/21 04:00 Plt Morphology Comment Not Reportable 04/28/21 04:00 RBC Morphology Not Reportable 04/28/21 04:00 Dimorphic RBCs Not Reportable 04/28/21 04:00 Polychromasia Not Reportable 04/28/21 04:00 Hypochromasia Not Reportable 04/28/21 04:00 Poikilocytosis Not Reportable 04/28/21 04:00 Anisocytosis Not Reportable 04/28/21 04:00 Microcytosis Not Reportable 04/28/21 04:00 Macrocytosis Not Reportable 04/28/21 04:00 Spherocytes Not Reportable 04/28/21 04:00 Pappenheimer Bodies Not Reportable 04/28/21 04:00 Sickle Cells Not Reportable 04/28/21 04:00 Target Cells 1+ 04/28/21 04:00 Tear Drop Cells Not Reportable 04/28/21 04:00 Ovalocytes Not Reportable 04/28/21 04:00 Helmet Cells Not Reportable 04/28/21 04:00 Parkinson-Metter Bodies Not Reportable 04/28/21 04:00 [place] Rings Not Reportable 04/28/21 04:00 [place] Cells Not Reportable 04/28/21 04:00 Bite Cells Not Reportable 04/28/21 04:00 Crenated Cell Not Reportable 04/28/21 04:00 Elliptocytes Not Reportable 04/28/21 04:00 Acanthocytes (Spur) Not Reportable 04/28/21 04:00 Rouleaux Not Reportable 04/28/21 04:00 Hemoglobin C Crystals Not Reportable 04/28/21 04:00 Schistocytes Not Reportable 04/28/21 04:00 Malaria parasites Not Reportable 04/28/21 04:00 Herrera Bodies Not Reportable 04/28/21 04:00 Hem Pathologist Commnt No 04/28/21 04:00 PT 14.7 Sec. (12.2-14.9) 05/13/21 04:24 INR 1.04 (0.87-1.13) 05/13/21 04:24 APTT 36.6 Sec. (24.2-36.6) 04/28/21 05:00 Heparin Anti-Xa, Unfract Negative (Negative) 04/24/21 17:29 ABG pH 7.487 (7.320-7.450) H 05/02/21 04:34 POC ABG pCO2 35.3 mmHg (32.0-48.0) 05/02/21 04:34 ABG pCO2 31.6 mm Hg 04/21/21 15:47 POC ABG pO2 78.6 mmHg (83-108) L 05/02/21 04:34 ABG pO2 168.1 mm Hg (80.0-90.0) H 04/21/21 15:47 POC ABG HCO3 26.1 05/02/21 04:34 ABG HCO3 23.3 mmol/L (20.0-26.0) 04/21/21 15:47 ABG O2 Saturation 96.0 (0-100) 05/02/21 04:34 ABG O2 Content 12.7 (0.0-44) 04/21/21 15:47 POC ABG Base Excess 2.9 05/02/21 04:34 ABG Base Excess 0.3 mmol/L (-2.0-3.0) 04/21/21 15:47 ABG Hemoglobin 11.5 (12.0-17.5) L 05/02/21 04:34 ABG Oxyhemoglobin 95.1 (94-98) 05/02/21 04:34 ABG Carboxyhemoglobin 1.0 % (0.0-5.0) 04/21/21 15:47 ABG Methemoglobin 0.3 (0.0-1.5) 05/02/21 04:34 ABG Sodium 138.6 mmol/L (136.0-145.0) 05/02/21 04:34 ABG Potassium 3.4 mmol/L (3.40-4.50) 05/02/21 04:34 ABG Chloride 105.0 mmol/L (98-107) 05/02/21 04:34 ABG Glucose 122 mg/dL (65-95) H 05/02/21 04:34 VBG pH 7.397 (7.320-7.420) 04/20/21 17:10 Oxyhemoglobin 97.5 % (95.0-99.0) 04/21/21 15:47 Carboxyhemoglobin 0.6 (0.5-1.5) 05/02/21 04:34 FiO2 100 % 04/21/21 15:47 FiO2 % 40.0 05/02/21 04:34 Sodium 139 mmol/L (137-145) 05/13/21 04:24 Potassium 4.1 mmol/L (3.6-5.0) 05/13/21 04:24 Chloride 104.4 mmol/L (98-107) 05/13/21 04:24 Carbon Dioxide 25 mmol/L (22-30) 05/13/21 04:24 Anion Gap 14 mmol/L 05/13/21 04:24 BUN 30 mg/dL (7-17) H 05/13/21 04:24 Creatinine 1.1 mg/dL (0.6-1.2) 05/13/21 04:24 Estimated GFR 58 ml/min 05/13/21 04:24 BUN/Creatinine Ratio 27 % 05/13/21 04:24 Glucose 138 mg/dL (65-100) H 05/13/21 04:24 POC Glucose 148 mg/dL (70-105) H 05/13/21 11:44 Hemoglobin A1c 17.1 % (4-6) H 04/22/21 15:55 Lactic Acid 1.90 mmol/L (0.7-2.0) 04/20/21 19:56 Calcium 8.3 mg/dL (8.4-10.2) L 05/13/21 04:24 Phosphorus 3.70 mg/dL (2.5-4.5) 05/13/21 04:24 Magnesium 1.60 mg/dL (1.7-2.3) L 05/13/21 04:24 Iron 62 ug/dL (37-170) 04/24/21 17:29 TIBC 285 mcg/dL (250-450) 04/24/21 17:29 % Saturation 21.75 % 04/24/21 17:29 Transferrin 112 mg/dl (192-382) L 04/24/21 17:29 Total Bilirubin 0.20 mg/dL (0.1-1.2) 05/03/21 04:00 Direct Bilirubin < 0.2 mg/dL (0-0.2) 04/29/21 04:00 Indirect Bilirubin 0.1 mg/dL 04/29/21 04:00 AST 53 units/L (5-40) H 05/03/21 04:00 ALT 55 units/L (7-56) 05/03/21 04:00 Alkaline Phosphatase 149 units/L (35-129) H 05/03/21 04:00 Ammonia 29.0 umol/L (25-60) 04/20/21 17:10 Total Creatine Kinase 1000 units/L (30-135) H 04/27/21 07:43 CK-MB (CK-2) 36.0 ng/mL (0.0-4.0) H 04/20/21 17:10 CK-MB (CK-2) Rel Index 0.9 (0-4) 04/20/21 17:10 Troponin T 0.021 ng/mL (0.00-0.029) 04/20/21 17:10 Serum Total Protein 5.5 g/dL (6.1-8.1) L 04/22/21 08:59 Total Protein 5.2 g/dL (6.3-8.2) L 05/03/21 04:00 Albumin 1.5 g/dL (3.9-5) L 05/03/21 04:00 Albumin/Globulin Ratio 0.4 % 05/03/21 04:00 Plnfk-4-Txsfirisn 0.6 g/dL (0.2-0.3) H 04/22/21 08:59 Osmcy-8-Qfunkqpaj 1.0 g/dL (0.5-0.9) H 04/22/21 08:59 Beta Globulins 0.3 g/dL (0.2-0.5) 04/22/21 08:59 Gamma Globulins 0.6 g/dL (0.8-1.7) L 04/22/21 08:59 Abnorm Protein Band 1 see below 04/22/21 08:59 PEP Interpretation see below H 04/22/21 08:59 Triglycerides 80 mg/dL (2-149) 05/04/21 04:48 Cholesterol 90 mg/dL (50-199) 05/04/21 04:48 LDL Cholesterol Direct 51 mg/dL (50-130) 05/04/21 04:48 HDL Cholesterol 24 mg/dL (40-59) L 05/04/21 04:48 Cholesterol/HDL Ratio 3.75 % 05/04/21 04:48 Serotonin Release Assay See scanned result 04/24/21 17:29 TSH 6.040 mlU/mL (0.270-4.200) H 04/20/21 17:10 Free T4 0.93 ng/dL (0.76-1.46) 04/20/21 17:10 Arterial Blood Glucose 122 mg/dL (65-95) H 05/02/21 04:34 Arterial Blood Ionized Calcium 4.5 mg/dL (4.6-5.3) L 04/28/21 05:18 Urine Color Yellow (Yellow) 04/29/21 13:30 Urine Turbidity Turbid (Clear) 04/29/21 13:30 Urine pH 5.0 (5.0-7.0) 04/29/21 13:30 Ur Specific [place] 1.010 (1.003-1.030) 04/29/21 13:30 Urine Protein 100 mg/dl mg/dL (Negative) 04/29/21 13:30 Urine Glucose (UA) 150 mg/dL (Negative) 04/29/21 13:30 Urine Ketones Neg mg/dL (Negative) 04/29/21 13:30 Urine Blood Lg (Negative) 04/29/21 13:30 Urine Nitrite Neg (Negative) 04/29/21 13:30 Urine Bilirubin Neg (Negative) 04/29/21 13:30 Urine Urobilinogen < 2.0 mg/dL (<2.0) 04/29/21 13:30 Ur Leukocyte Esterase Lg (Negative) 04/29/21 13:30 Urine WBC (Auto) > 182.0 /HPF (0.0-6.0) H 04/29/21 13:30 Urine RBC (Auto) > 182.0 /HPF (0.0-6.0) 04/29/21 13:30 U Epithel Cells (Auto) 4.0 /HPF (0-13.0) 04/29/21 13:30 Urine WBC Clumps 3+ /HPF 04/29/21 13:30 Urine Mucus Few /HPF 04/29/21 13:30 Urine Yeast (Budding) 3+ /HPF 04/29/21 13:30 Urine Osmolality 446 Mosm/kg 04/21/21 08:01 Urine Total Volume 1700 ml 05/08/21 09:34 Urine Creatinine 56.0 mg/dL (0.1-20.0) H 05/08/21 09:34 Ur Creatinine 24 Hour 1.0 (0.8-2.8) 05/08/21 09:34 Urine Sodium 71 mmol/L 04/21/21 08:01 Urine Total Protein 12 mg/dL (5-11.8) H 04/21/21 08:01 CSF Appearance Clear 04/29/21 11:45 CSF Color Colorless 04/29/21 11:45 CSF WBC 14 /mm3 (1-10) 04/29/21 11:45 CSF RBC 324 /mm3 (0-0) 04/29/21 11:45 CSF Seg Neutrophils 50.0 % (0-6) 04/29/21 11:45 CSF Lymphocytes % 40.0 % (40-80) 04/29/21 11:45 CSF Reactive Lymphs Not Reportable 04/29/21 11:45 CSF Monocytes % 10.0 % (15-45) 04/29/21 11:45 CSF Eosinophils % Not Reportable 04/29/21 11:45 CSF Basophils Not Reportable 04/29/21 11:45 CSF Pathologist Review C 04/29/21 11:45 CSF Glucose 161 mg/dL 04/29/21 11:45 CSF Total Protein 51 mg/dL 04/29/21 11:45 Plasma/Serum Alcohol < 0.01 % (0-0.07) 04/20/21 17:10 Heparin-induced Plt Ab Negative (Negative) 04/24/21 17:29 UF Heparin High Dose 1 % Release 04/24/21 17:29 EFE UFH Low Dose 0.1 0 % Release 04/24/21 17:29 EFE UFH Low Dose 0.5 0 % Release 04/24/21 17:29 Coronavirus (PCR) Negative (Negative) 04/21/21 Unknown Hepatitis A IgM Ab Non-reactive (NonReactive) 04/27/21 12:49 Hep Bs Antigen Nonreactive (Negative) 04/27/21 12:49 Hep B Core IgM Ab Non-reactive (NonReactive) 04/27/21 12:49 Hepatitis C Antibody Non-reactive (NonReactive) 04/27/21 12:49 Blood Type O POSITIVE 05/02/21 12:00 Antibody Screen Negative 05/02/21 12:00 Crossmatch See Detail 05/02/21 12:00 Luther/IV: Voiding Method Indwelling Catheter Active Medications - Current Medications Current Medications: Generic Name Dose Route Start Last Admin Trade Name Freq PRN Reason Stop Dose Admin Acetaminophen 650 mg 04/20/21 21:31 05/01/21 18:15 Acetaminophen 325 Mg Tab PO 650 mg Q4H PRN Administration Pain MILD(1-3)/Fever >100.5/TURCIOS Albumin Human 25 gm 05/06/21 16:06 05/06/21 16:21 Albumin Human 25% (25 Gm/100 Ml) Inj IV 25 gm MITCH PRN Administration Hypotension Albuterol 2.5 mg 04/22/21 14:49 04/23/21 15:18 Albuterol 2.5 Mg/3 Ml Nebu IH 2.5 mg Q4HRT PRN Administration Shortness Of Breath Amlodipine Besylate 5 mg 05/12/21 10:00 05/13/21 09:52 Amlodipine 5 Mg Tab PO Not Given QDAY AZIZA Lipase/Protease/Amylase 1 each 04/25/21 14:13 Lipase 10,500/Protease 25,000/Amylase 43,750 (Units) Dr Vasquez FEEDTUBE PRN PRN For Clogged Feeding Tube Aspirin 81 mg 05/04/21 10:00 05/13/21 09:52 Aspirin 81 Mg Tab Chew FEEDTUBE Not Given QDAY [facility] Atorvastatin Calcium 40 mg 05/04/21 22:00 05/12/21 21:46 Atorvastatin 40 Mg Tab FEEDTUBE 40 mg QHS [facility] Administration Dextrose 50 ml 04/24/21 11:36 Dextrose 50% In Water (25gm) 50 Ml Syringe IV Q30MIN PRN Hypoglycemia Protocol Famotidine 10 mg 04/27/21 10:00 05/13/21 09:52 Famotidine 10 Mg Tab FEEDTUBE Not Given BID [facility] Heparin Sodium (Porcine) 5,000 unit 05/10/21 22:00 05/13/21 09:59 Heparin 5,000 Unit/1 Ml Vial SUB-Q Not Given Q12HR [facility] Hydrophilic Ointment 1 applic 04/26/21 11:16 Lip Therapy Vaseline TP Q2HR PRN Dry Lips Magnesium Sulfate 4 gm in 100 mls @ 25 mls/hr 05/13/21 09:00 05/13/21 09:51 Magnesium Sulfate 4gm/100ml IV 05/13/21 13:00 25 mls/hr ONCE@0900 [facility] Administration Insulin Human Lispro 0 unit 04/25/21 18:00 05/13/21 05:31 Insulin Lispro 100 Unit/Ml SUB-Q Not Given Q6HR [facility] Protocol Labetalol HCl 20 mg 05/12/21 11:34 05/12/21 21:35 Labetalol 20 Mg/4 Ml Inj IV 20 mg Q4H PRN Administration SBP >/=170 Levothyroxine Sodium 50 mcg 05/03/21 06:00 05/13/21 05:11 Levothyroxine 50 Mcg Tab PO Not Given DAILY@0600 [facility] Lorazepam 1 mg 04/26/21 11:15 05/12/21 16:27 Lorazepam 2 Mg/Ml Vial IV 1 mg Q4H PRN Administration Sedation Metoclopramide HCl 5 mg 04/20/21 21:31 Metoclopramide 10 Mg/2 Ml Inj IV Q6H PRN Nausea And Vomiting Multi-Ingred Cream/Lotion/Oil/Oint 1 applic 04/26/21 11:16 Mineral Oil/Petrolatum, White Ophth Oint 3.5 Gm OU Q4HR PRN Dry Eye(s) Ondansetron HCl 4 mg 04/20/21 21:31 Ondansetron 4 Mg/2 Ml Inj IV Q8H PRN Nausea And Vomiting Senna/Docusate Sodium 1 tab 04/26/21 22:00 05/13/21 09:51 Sennosides/Docusate Sodium 8.6/50 Mg Tab FEEDTUBE Not Given BID AZIZA Simple Syrup 15 ml 04/25/21 14:13 Simple Syrup 15 Ml FEEDTUBE PRN PRN Hypoglycemia Simple Syrup 30 ml 04/25/21 14:13 Simple Syrup 15 Ml FEEDTUBE PRN PRN Hypoglycemia Sodium Bicarbonate 325 mg 04/25/21 14:13 04/27/21 13:00 Sodium Bicarbonate 325 Mg Tab FEEDTUBE 325 mg PRN PRN Administration For Clogged Feeding Tube Sodium Bicarbonate 1,300 mg 04/27/21 14:00 05/13/21 09:52 Sodium Bicarbonate 650 Mg Tab PO Not Given TID AZIZA Sodium Chloride 10 ml 04/20/21 22:00 05/13/21 09:58 Sodium Chloride 0.9% 10 Ml Flush Syringe IV 10 ml BID AZIZA Administration Sodium Chloride 10 ml 04/20/21 21:31 Sodium Chloride 0.9% 10 Ml Flush Syringe IV PRN PRN LINE FLUSH Nutrition/Malnutrition Assess - Dietary Evaluation Nutrition/Malnutrition Findings: Nutrition Notes Start: 04/21/21 12:15 Freq: Status: Active Protocol: Document 05/11/21 15:28 JOSE (Rec: 05/11/21 15:48 JOSE [id number]) Nutrition Notes Initial or Follow up Reassessment Current Diagnosis Acute Kidney Injury, Respiratory Failure, Hyperlipidemia Other Pertinent Diagnosis Ac Metabolic encephalopathy, Rabdomyolisis, Met acidosis, Leukocytosis. Current Diet TF-Nepro w/CARBSTEADY @ 32 ml/ hr (since 04/29). Labs/Tests 05/11: Na 149, Cl 112, BUN 36, Crea 1.4, Glu 164. Pertinent Medications 05/11: insulin, levothyroxine, others nutritionally unremarkable. Height 5 ft 2 in Weight 72.4 kg [place] Body Weight (kg) 50.00 BMI 29.2 Weight change and time frame No body weight change reported . Weight Status Overweight Subjective/Other Information RD consult for routine F/U on TF tolerance. TF will be stop on 05/13 00:01 , for tracheostomy and PEG tube placement. Percent of energy/protein needs met: Prescribed TF-Nepro w/ CARBSTEADY @ 32 ml/hr provides for energy/protein needs (1, 389 Kcal/63 g) during LOS, 100 % Kcal; 72% AA. Burn Absent Trauma Absent GI Symptoms None Food Allergy No Skin Integrity/Comment Clear, warm, dry. Current % PO Other Minimum of two criteria No #1 Nutrition Diagnosis Inadequate oral intake Diagnosis Progress(for reassessment Continues documentation) Is patient on ventilator? Yes Is Patient Ambulatory and/or Out of Bed No REE-([facility]-confined to bed) 1389.420 Calculation Used for Recommendations [facility] Additional Notes Protein: >1.2 g/kg: >87 g/day. Fluids: 1-1.5 L/day, or as per MD. Nutrition Intervention Nutrition Support: Continue TF to Nepro w/ CARBSTEADY @ 32 ml/hr. Flush: 140 ml water Q 4 hr, or as per MD. Kcal 1,382 Protein (gm) 62 Carbohydrates (gm) 124 Fat (gm) 74 Fluid (mL) 558 Fiber (gm) 10 % RDI: 100% Kcal; 72% AA. Goal #1 Provide at least 75% of energy /protein needs through Enteral Feeding during LOS. Follow-Up By: 05/13/21 Additional Comments Continue monitoring TF tolerance and BM. <TACHO RUBALCAVA - Last Filed: 05/14/21 12:02> Assessment and Plan Assessment and plan: I saw and evaluated the patient. Discussed with the nurse practitioner and agree with their findings and plan as documented in this note except: The high probability of a clinically significant, sudden or life threatening deterioration of the [multi] system(s) required my full and direct attention, intervention and personal management. The aggregate critical care time was [60] minutes. This time is in addition to time spent performing reported procedures but includes the following: [x] Data Review and interpretation [x] Patient assessment and monitoring of vital signs [x] Documentation [x] Medication orders and management Hospitalist Physical - Constitutional Vitals: Temp Pulse Resp BP Pulse Ox 99.9 F H 95 H 14 123/54 100 05/14/21 11:22 05/14/21 11:31 05/14/21 11:31 05/14/21 11:31 05/14/21 11:31 HEART Score - HEART Score Troponin: Troponin T 0.021 ng/mL (0.00-0.029) 04/20/21 17:10 Results - Labs CBC & Chem 7: 05/14/21 04:43 05/14/21 04:43 Labs: Laboratory Last Values WBC 10.1 K/mm3 (4.5-11.0) 05/14/21 04:43 RBC 3.02 M/mm3 (3.65-5.03) L 05/14/21 04:43 Hgb 8.3 gm/dl (10.1-14.3) L 05/14/21 04:43 Hct 25.6 % (30.3-42.9) L 05/14/21 04:43 MCV 85 fl (79-97) 05/14/21 04:43 MCH 28 pg (28-32) 05/14/21 04:43 MCHC 33 % (30-34) 05/14/21 04:43 RDW 15.5 % (13.2-15.2) H 05/14/21 04:43 Plt Count 482 K/mm3 (140-440) H 05/14/21 04:43 Add Manual Diff Complete 04/28/21 04:00 Total Counted 100 04/28/21 04:00 Seg Neutrophils % Acid Cutter 04/28/21 04:00 Seg Neuts % (Manual) 77.0 % (40.0-70.0) H 04/26/21 09:33 Band Neutrophils % 2.0 % 04/28/21 04:00 Lymphocytes % (Manual) 1.0 % (13.4-35.0) L 04/28/21 04:00 Reactive Lymphs % (Man) 0 % 04/28/21 04:00 Monocytes % (Manual) 1.0 % (0.0-7.3) 04/28/21 04:00 Eosinophils % (Manual) 3.0 % (0.0-4.3) 04/28/21 04:00 Metamyelocytes % 1.0 % 04/28/21 04:00 Myelocytes % 0 % 04/28/21 04:00 Promyelocytes % 0 % 04/28/21 04:00 Blast Cells % 0 % 04/28/21 04:00 Nucleated RBC % 4.0 % (0.0-0.9) H 04/28/21 04:00 Seg Neutrophils # Man 11.6 K/mm3 (1.8-7.7) H 04/28/21 04:00 Band Neutrophils # 0.3 K/mm3 04/28/21 04:00 Lymphocytes # (Manual) 0.1 K/mm3 (1.2-5.4) L 04/28/21 04:00 Abs React Lymphs (Man) 0.0 K/mm3 04/28/21 04:00 Monocytes # (Manual) 0.1 K/mm3 (0.0-0.8) 04/28/21 04:00 Eosinophils # (Manual) 0.4 K/mm3 (0.0-0.4) 04/28/21 04:00 Basophils # (Manual) 0.0 K/mm3 (0.0-0.1) 04/28/21 04:00 Metamyelocytes # 0.1 K/mm3 04/28/21 04:00 Myelocytes # 0.0 K/mm3 04/28/21 04:00 Promyelocytes # 0.0 K/mm3 04/28/21 04:00 Blast Cells # 0.0 K/mm3 04/28/21 04:00 WBC Morphology Not Reportable 04/28/21 04:00 Hypersegmented Neuts Not Reportable 04/28/21 04:00 Hyposegmented Neuts Not Reportable 04/28/21 04:00 Hypogranular Neuts Not Reportable 04/28/21 04:00 Smudge Cells Not Reportable 04/28/21 04:00 Toxic Granulation Not Reportable 04/28/21 04:00 Toxic Vacuolation Not Reportable 04/28/21 04:00 Dohle Bodies Not Reportable 04/28/21 04:00 Pelger-Huet Anomaly Not Reportable 04/28/21 04:00 Moni Rods Not Reportable 04/28/21 04:00 Platelet Estimate Consistent w auto 04/28/21 04:00 Clumped Platelets Not Reportable 04/28/21 04:00 Plt Clumps, EDTA Not Reportable 04/28/21 04:00 Large Platelets Few 04/28/21 04:00 Giant Platelets Not Reportable 04/28/21 04:00 Platelet Satelliting Not Reportable 04/28/21 04:00 Plt Morphology Comment Not Reportable 04/28/21 04:00 RBC Morphology Not Reportable 04/28/21 04:00 Dimorphic RBCs Not Reportable 04/28/21 04:00 Polychromasia Not Reportable 04/28/21 04:00 Hypochromasia Not Reportable 04/28/21 04:00 Poikilocytosis Not Reportable 04/28/21 04:00 Anisocytosis Not Reportable 04/28/21 04:00 Microcytosis Not Reportable 04/28/21 04:00 Macrocytosis Not Reportable 04/28/21 04:00 Spherocytes Not Reportable 04/28/21 04:00 Pappenheimer Bodies Not Reportable 04/28/21 04:00 Sickle Cells Not Reportable 04/28/21 04:00 Target Cells 1+ 04/28/21 04:00 Tear Drop Cells Not Reportable 04/28/21 04:00 Ovalocytes Not Reportable 04/28/21 04:00 Helmet Cells Not Reportable 04/28/21 04:00 Parkinson-Metter Bodies Not Reportable 04/28/21 04:00 [place] Rings Not Reportable 04/28/21 04:00 [place] Cells Not Reportable 04/28/21 04:00 Bite Cells Not Reportable 04/28/21 04:00 Crenated Cell Not Reportable 04/28/21 04:00 Elliptocytes Not Reportable 04/28/21 04:00 Acanthocytes (Spur) Not Reportable 04/28/21 04:00 Rouleaux Not Reportable 04/28/21 04:00 Hemoglobin C Crystals Not Reportable 04/28/21 04:00 Schistocytes Not Reportable 04/28/21 04:00 Malaria parasites Not Reportable 04/28/21 04:00 Herrera Bodies Not Reportable 04/28/21 04:00 Hem Pathologist Commnt No 04/28/21 04:00 PT 14.7 Sec. (12.2-14.9) 05/13/21 04:24 INR 1.04 (0.87-1.13) 05/13/21 04:24 APTT 36.6 Sec. (24.2-36.6) 04/28/21 05:00 Heparin Anti-Xa, Unfract Negative (Negative) 04/24/21 17:29 ABG pH 7.487 (7.320-7.450) H 05/02/21 04:34 POC ABG pCO2 35.3 mmHg (32.0-48.0) 05/02/21 04:34 ABG pCO2 31.6 mm Hg 04/21/21 15:47 POC ABG pO2 78.6 mmHg (83-108) L 05/02/21 04:34 ABG pO2 168.1 mm Hg (80.0-90.0) H 04/21/21 15:47 POC ABG HCO3 26.1 05/02/21 04:34 ABG HCO3 23.3 mmol/L (20.0-26.0) 04/21/21 15:47 ABG O2 Saturation 96.0 (0-100) 05/02/21 04:34 ABG O2 Content 12.7 (0.0-44) 04/21/21 15:47 POC ABG Base Excess 2.9 05/02/21 04:34 ABG Base Excess 0.3 mmol/L (-2.0-3.0) 04/21/21 15:47 ABG Hemoglobin 11.5 (12.0-17.5) L 05/02/21 04:34 ABG Oxyhemoglobin 95.1 (94-98) 05/02/21 04:34 ABG Carboxyhemoglobin 1.0 % (0.0-5.0) 04/21/21 15:47 ABG Methemoglobin 0.3 (0.0-1.5) 05/02/21 04:34 ABG Sodium 138.6 mmol/L (136.0-145.0) 05/02/21 04:34 ABG Potassium 3.4 mmol/L (3.40-4.50) 05/02/21 04:34 ABG Chloride 105.0 mmol/L (98-107) 05/02/21 04:34 ABG Glucose 122 mg/dL (65-95) H 05/02/21 04:34 VBG pH 7.397 (7.320-7.420) 04/20/21 17:10 Oxyhemoglobin 97.5 % (95.0-99.0) 04/21/21 15:47 Carboxyhemoglobin 0.6 (0.5-1.5) 05/02/21 04:34 FiO2 100 % 04/21/21 15:47 FiO2 % 40.0 05/02/21 04:34 Sodium 138 mmol/L (137-145) 05/14/21 04:43 Potassium 4.0 mmol/L (3.6-5.0) 05/14/21 04:43 Chloride 104.1 mmol/L (98-107) 05/14/21 04:43 Carbon Dioxide 23 mmol/L (22-30) 05/14/21 04:43 Anion Gap 15 mmol/L 05/14/21 04:43 BUN 29 mg/dL (7-17) H 05/14/21 04:43 Creatinine 1.2 mg/dL (0.6-1.2) 05/14/21 04:43 Estimated GFR 52 ml/min 05/14/21 04:43 BUN/Creatinine Ratio 24 % 05/14/21 04:43 Glucose 192 mg/dL (65-100) H 05/14/21 04:43 POC Glucose 215 mg/dL (70-105) H 05/14/21 10:59 Hemoglobin A1c 17.1 % (4-6) H 04/22/21 15:55 Lactic Acid 1.90 mmol/L (0.7-2.0) 04/20/21 19:56 Calcium 8.1 mg/dL (8.4-10.2) L 05/14/21 04:43 Phosphorus 3.20 mg/dL (2.5-4.5) 05/14/21 04:43 Magnesium 2.20 mg/dL (1.7-2.3) 05/14/21 04:43 Iron 62 ug/dL (37-170) 04/24/21 17:29 TIBC 285 mcg/dL (250-450) 04/24/21 17:29 % Saturation 21.75 % 04/24/21 17:29 Transferrin 112 mg/dl (192-382) L 04/24/21 17:29 Total Bilirubin 0.20 mg/dL (0.1-1.2) 05/03/21 04:00 Direct Bilirubin < 0.2 mg/dL (0-0.2) 04/29/21 04:00 Indirect Bilirubin 0.1 mg/dL 04/29/21 04:00 AST 53 units/L (5-40) H 05/03/21 04:00 ALT 55 units/L (7-56) 05/03/21 04:00 Alkaline Phosphatase 149 units/L (35-129) H 05/03/21 04:00 Ammonia 29.0 umol/L (25-60) 04/20/21 17:10 Total Creatine Kinase 1000 units/L (30-135) H 04/27/21 07:43 CK-MB (CK-2) 36.0 ng/mL (0.0-4.0) H 04/20/21 17:10 CK-MB (CK-2) Rel Index 0.9 (0-4) 04/20/21 17:10 Troponin T 0.021 ng/mL (0.00-0.029) 04/20/21 17:10 Serum Total Protein 5.5 g/dL (6.1-8.1) L 04/22/21 08:59 Total Protein 5.2 g/dL (6.3-8.2) L 05/03/21 04:00 Albumin 1.5 g/dL (3.9-5) L 05/03/21 04:00 Albumin/Globulin Ratio 0.4 % 05/03/21 04:00 Knyyz-6-Fijsezsyo 0.6 g/dL (0.2-0.3) H 04/22/21 08:59 Mjemt-4-Rinxctkkn 1.0 g/dL (0.5-0.9) H 04/22/21 08:59 Beta Globulins 0.3 g/dL (0.2-0.5) 04/22/21 08:59 Gamma Globulins 0.6 g/dL (0.8-1.7) L 04/22/21 08:59 Abnorm Protein Band 1 see below 04/22/21 08:59 PEP Interpretation see below H 04/22/21 08:59 Triglycerides 80 mg/dL (2-149) 05/04/21 04:48 Cholesterol 90 mg/dL (50-199) 05/04/21 04:48 LDL Cholesterol Direct 51 mg/dL (50-130) 05/04/21 04:48 HDL Cholesterol 24 mg/dL (40-59) L 05/04/21 04:48 Cholesterol/HDL Ratio 3.75 % 05/04/21 04:48 Serotonin Release Assay See scanned result 04/24/21 17:29 TSH 6.040 mlU/mL (0.270-4.200) H 04/20/21 17:10 Free T4 0.93 ng/dL (0.76-1.46) 04/20/21 17:10 Arterial Blood Glucose 122 mg/dL (65-95) H 05/02/21 04:34 Arterial Blood Ionized Calcium 4.5 mg/dL (4.6-5.3) L 04/28/21 05:18 Urine Color Yellow (Yellow) 04/29/21 13:30 Urine Turbidity Turbid (Clear) 04/29/21 13:30 Urine pH 5.0 (5.0-7.0) 04/29/21 13:30 Ur Specific [place] 1.010 (1.003-1.030) 04/29/21 13:30 Urine Protein 100 mg/dl mg/dL (Negative) 04/29/21 13:30 Urine Glucose (UA) 150 mg/dL (Negative) 04/29/21 13:30 Urine Ketones Neg mg/dL (Negative) 04/29/21 13:30 Urine Blood Lg (Negative) 04/29/21 13:30 Urine Nitrite Neg (Negative) 04/29/21 13:30 Urine Bilirubin Neg (Negative) 04/29/21 13:30 Urine Urobilinogen < 2.0 mg/dL (<2.0) 04/29/21 13:30 Ur Leukocyte Esterase Lg (Negative) 04/29/21 13:30 Urine WBC (Auto) > 182.0 /HPF (0.0-6.0) H 04/29/21 13:30 Urine RBC (Auto) > 182.0 /HPF (0.0-6.0) 04/29/21 13:30 U Epithel Cells (Auto) 4.0 /HPF (0-13.0) 04/29/21 13:30 Urine WBC Clumps 3+ /HPF 04/29/21 13:30 Urine Mucus Few /HPF 04/29/21 13:30 Urine Yeast (Budding) 3+ /HPF 04/29/21 13:30 Urine Osmolality 446 Mosm/kg 04/21/21 08:01 Urine Total Volume 1700 ml 05/08/21 09:34 Urine Creatinine 56.0 mg/dL (0.1-20.0) H 05/08/21 09:34 Ur Creatinine 24 Hour 1.0 (0.8-2.8) 05/08/21 09:34 Urine Sodium 71 mmol/L 04/21/21 08:01 Urine Total Protein 12 mg/dL (5-11.8) H 04/21/21 08:01 CSF Appearance Clear 04/29/21 11:45 CSF Color Colorless 04/29/21 11:45 CSF WBC 14 /mm3 (1-10) 04/29/21 11:45 CSF RBC 324 /mm3 (0-0) 04/29/21 11:45 CSF Seg Neutrophils 50.0 % (0-6) 04/29/21 11:45 CSF Lymphocytes % 40.0 % (40-80) 04/29/21 11:45 CSF Reactive Lymphs Not Reportable 04/29/21 11:45 CSF Monocytes % 10.0 % (15-45) 04/29/21 11:45 CSF Eosinophils % Not Reportable 04/29/21 11:45 CSF Basophils Not Reportable 04/29/21 11:45 CSF Pathologist Review C 04/29/21 11:45 CSF Glucose 161 mg/dL 04/29/21 11:45 CSF Total Protein 51 mg/dL 04/29/21 11:45 Plasma/Serum Alcohol < 0.01 % (0-0.07) 04/20/21 17:10 Heparin-induced Plt Ab Negative (Negative) 04/24/21 17:29 UF Heparin High Dose 1 % Release 04/24/21 17:29 EFE UFH Low Dose 0.1 0 % Release 04/24/21 17:29 EFE UFH Low Dose 0.5 0 % Release 04/24/21 17:29 Coronavirus (PCR) Negative (Negative) 04/21/21 Unknown Hepatitis A IgM Ab Non-reactive (NonReactive) 04/27/21 12:49 Hep Bs Antigen Nonreactive (Negative) 04/27/21 12:49 Hep B Core IgM Ab Non-reactive (NonReactive) 04/27/21 12:49 Hepatitis C Antibody Non-reactive (NonReactive) 04/27/21 12:49 Blood Type O POSITIVE 05/02/21 12:00 Antibody Screen Negative 05/02/21 12:00 Crossmatch See Detail 05/02/21 12:00 Microbiology: Microbiology 05/02/21 Unknown Urine,Catheterized - Indwelling Catheter Urine Culture - Final Roselyn Tropicalis Luther/IV: Voiding Method Indwelling Catheter Active Medications - Current Medications Current Medications: Generic Name Dose Route Start Last Admin Trade Name Freq PRN Reason Stop Dose Admin Acetaminophen 650 mg 04/20/21 21:31 05/14/21 09:50 Acetaminophen 325 Mg Tab PO 650 mg Q4H PRN Administration Pain MILD(1-3)/Fever >100.5/TURCIOS Albumin Human 25 gm 05/06/21 16:06 05/06/21 16:21 Albumin Human 25% (25 Gm/100 Ml) Inj IV 25 gm MITCH PRN Administration Hypotension Albuterol 2.5 mg 04/22/21 14:49 04/23/21 15:18 Albuterol 2.5 Mg/3 Ml Nebu IH 2.5 mg Q4HRT PRN Administration Shortness Of Breath Amlodipine Besylate 5 mg 05/12/21 10:00 05/14/21 09:49 Amlodipine 5 Mg Tab PO 5 mg QDAY AZIZA Administration Lipase/Protease/Amylase 1 each 04/25/21 14:13 Lipase 10,500/Protease 25,000/Amylase 43,750 (Units) Dr Vasquez FEEDTUBE PRN PRN For Clogged Feeding Tube Aspirin 81 mg 05/04/21 10:00 05/14/21 09:50 Aspirin 81 Mg Tab Chew FEEDTUBE 81 mg QDAY AZIZA Administration Atorvastatin Calcium 40 mg 05/04/21 22:00 05/13/21 21:39 Atorvastatin 40 Mg Tab FEEDTUBE 40 mg QHS AZIZA Administration Dextrose 50 ml 04/24/21 11:36 Dextrose 50% In Water (25gm) 50 Ml Syringe IV Q30MIN PRN Hypoglycemia Protocol Famotidine 10 mg 04/27/21 10:00 05/14/21 09:50 Famotidine 10 Mg Tab FEEDTUBE 10 mg BID AZIZA Administration Heparin Sodium (Porcine) 5,000 unit 05/10/21 22:00 05/14/21 09:50 Heparin 5,000 Unit/1 Ml Vial SUB-Q 5,000 unit Q12HR AZIZA Administration Hydrophilic Ointment 1 applic 04/26/21 11:16 Lip Therapy Vaseline TP Q2HR PRN Dry Lips Sodium Chloride 1,000 mls @ 100 mls/hr 05/14/21 08:30 05/14/21 09:53 Nacl 0.9% 1000 Ml IV 05/14/21 18:29 100 mls/hr DIRECT AZIZA Administration Insulin Human Lispro 0 unit 04/25/21 18:00 05/14/21 05:42 Insulin Lispro 100 Unit/Ml SUB-Q 3 unit Q6HR AZIZA Administration Protocol Labetalol HCl 20 mg 05/12/21 11:34 05/12/21 21:35 Labetalol 20 Mg/4 Ml Inj IV 20 mg Q4H PRN Administration SBP >/=170 Levothyroxine Sodium 50 mcg 05/03/21 06:00 05/14/21 05:27 Levothyroxine 50 Mcg Tab PO 50 mcg DAILY@0600 AZIZA Administration Lorazepam 1 mg 04/26/21 11:15 05/12/21 16:27 Lorazepam 2 Mg/Ml Vial IV 1 mg Q4H PRN Administration Sedation Metoclopramide HCl 5 mg 04/20/21 21:31 Metoclopramide 10 Mg/2 Ml Inj IV Q6H PRN Nausea And Vomiting Multi-Ingred Cream/Lotion/Oil/Oint 1 applic 04/26/21 11:16 Mineral Oil/Petrolatum, White Ophth Oint 3.5 Gm OU Q4HR PRN Dry Eye(s) Ondansetron HCl 4 mg 04/20/21 21:31 Ondansetron 4 Mg/2 Ml Inj IV Q8H PRN Nausea And Vomiting Senna/Docusate Sodium 1 tab 04/26/21 22:00 05/14/21 09:50 Sennosides/Docusate Sodium 8.6/50 Mg Tab FEEDTUBE 1 tab BID AZIZA Administration Simple Syrup 15 ml 04/25/21 14:13 Simple Syrup 15 Ml FEEDTUBE PRN PRN Hypoglycemia Simple Syrup 30 ml 04/25/21 14:13 Simple Syrup 15 Ml FEEDTUBE PRN PRN Hypoglycemia Sodium Bicarbonate 325 mg 04/25/21 14:13 04/27/21 13:00 Sodium Bicarbonate 325 Mg Tab FEEDTUBE 325 mg PRN PRN Administration For Clogged Feeding Tube Sodium Bicarbonate 1,300 mg 04/27/21 14:00 05/14/21 08:48 Sodium Bicarbonate 650 Mg Tab PO 1,300 mg TID AZIZA Administration Sodium Chloride 10 ml 04/20/21 22:00 05/14/21 09:51 Sodium Chloride 0.9% 10 Ml Flush Syringe IV 10 ml BID AZIZA Administration Sodium Chloride 10 ml 04/20/21 21:31 Sodium Chloride 0.9% 10 Ml Flush Syringe IV PRN PRN LINE FLUSH Nutrition/Malnutrition Assess - Dietary Evaluation Nutrition/Malnutrition Findings: Nutrition Notes Start: 04/21/21 12:15 Freq: Status: Active Protocol: Document 05/13/21 15:36 TAMMY (Rec: 05/13/21 15:47 TAMMY [id number]) Nutrition Notes Initial or Follow up Reassessment Current Diagnosis Sepsis,Respiratory Failure, Stroke Other Pertinent Diagnosis Acute metabolic encephalopathy , pneu, UTI Current Diet NPO Labs/Tests BUN 30 Mg 1.6 Pertinent Medications Mag sulfate x 1 dose Height 5 ft 2 in Weight 72.4 kg [place] Body Weight (kg) 50.00 BMI 29.2 Weight Status Overweight Subjective/Other Information Pt remains on vent support. TF off; pt scheduled for trach and PEG placement today. Unable to place PEG sec to suspected anatomical abnormality. Interventional radiology consulted for PEG placement. Per nephrology, SYED resolving; no indication for HD as VasCath has been removed. Minimum of two criteria No #1 Nutrition Diagnosis Inadequate oral intake Diagnosis Progress(for reassessment Continues documentation) Is patient on ventilator? Yes Is Patient Ambulatory and/or Out of Bed No REE-(Points-St. Jeor-confined to bed) 1389.420 [facility] Additional Notes Pro needs 1.2-2g/k-145g/ day Fluid needs 1ml/kcal Nutrition Intervention Nutrition Support: When feasible, resume TF, but change formula to Glucerna 1.2 at 50ml/hr with 80ml water flush q4h. Goal #1 Resume TF to meet nutrient needs Follow-Up By: 05/16/21 Additional Comments F/U: PEG placement, TF restart with Glucerna 1.2, vent status
[2021-05-13] MEDS ORDERED: ROCURONIUM 50 MG/5 ML INJ IV ONE (13:54)
[2021-05-13] MEDS ORDERED: fentaNYL 100 MCG/2 ML INJ ONE (13:54)
[2021-05-13] MEDS ORDERED: SODIUM CHLORIDE 0.9% 1000 ML 1,000 ML ONE (13:54)
--- NOTE | 2021-05-13 14:29 | Operative Report ---
Operative Report Operative Report: Date of surgery: 05/13/2021 Preoperative diagnosis: Vent dependence Postoperative diagnosis: Same as above Procedure: Percutaneous tracheostomy Surgeon: Ada Adams DO Anesthesia: Geta, local Findings: Good placement of tracheostomy as visualized by fiberoptic bronchoscopy EBL: LESS than 5 cc Specimen: None Complications: None Disposition: Stable to ICU HPI and indication: Patient is a 80-year-old female who has been intubated and unable to be safely weaned from the mechanical ventilation. A tracheostomy was requested by the experimental technician. Consent obtained from next of kin for trach placement. Procedure in detail: The patient was identified in the ICU and brought down to the operating room and positioned in supine position in the hospital bed. Consent was verified on the chart timeout was performed. The neck was prepped and draped in usual sterile fashion. Anesthesia was administered. A shoulder roll was placed, with the patient's neck mildly hyperextended.. Dr. Clay performed fiberoptic bronchoscopy throughout the entire procedure (see separate note). The fiberoptic bronchoscope was inserted through the endotracheal tube via the adapter and the trachea examined. The trachea was unremarkable and the 7.5 ET tube was approximately 3 cm from heladio at 24 cm at the lip. 1% lidocaine was infiltrated into the skin and subcutaneous tissue approximately 2 fingerbreadths above the sternal notch. A 2 cm incision was made in a horizontal fashion using a 15 blade. Using a hemostat the soft tissues were bluntly dissected until the trachea was encountered. The ET tube was then pulled back slowly to 16 cm. Using the introducer needle, the trachea was entered under direct visualization. The wire was passed down the trachea towards the heladio. Introducer needle was then removed. The trachea was then serially dilated, after which a 8 [place] tracheostomy tube was inserted. The balloon was visualized via fiberoptic bronchoscopy. The balloon was inflated, patient placed back on ventilator. There was end-tidal CO2 detected and tidal volumes assessed which were satisfactory. The bronchoscope was then placed through the tracheostomy and showed good positioning of the tracheostomy approximately 3 cm above the heladio and no bleeding. A drain sponge was placed between the skin and tracheostomy. The tracheostomy was secured to the patient's neck using a tracheostomy strap. A post op chest x-ray is pending. The patient tolerated the procedure well. All sharps were disposed of appropriately. The patient was taken back to the ICU in stable condition.
--- NOTE | 2021-05-13 14:32 | Event Note ---
Date: 05/13/21 80-year-old female with ventilator dependent respiratory failure who scheduled for tracheostomy and PEG tube placement procedure today. Tracheostomy was performed and uneventful. Attempted to perform PEG tube procedure. Multiple attempts at passing endoscope into the esophagus were unsuccessful. Suspect anatomical abnormality. Will consult IR for placement of PEG.
--- NOTE | 2021-05-13 14:34 | Operative Report ---
Operative Report Operative Report: Date:05/13/2021 Surgeon:Hilary Clay MD Pre-op diagnosis: respiratory failure with ventilator dependence Post-op diagnosis: same as pre-op Procedure:fiberoptic bronchoscopy Anesthesia: GETA Indication: Patient is a 80 Female. Patient intubated and sedated therefore unable to provided detail history. The patient has been unable to be weaned from the ventilator and therefore tracheostomy with assistance of fiberoptic bronchoscopy is indicated along with PEG tube placement. All risks were discussed with the family, and consent obtained. Procedure in detail: The patient was identified in the hospital bed in the ICU and brought down to the OR. After anesthesia was induced, the fiberoptic bronch oscope was passed through the endotracheal tube using an adapter. The trachea and heladio were visualized, there was a normal appearance of the mucosa and no debris or fluid was seen. At this point, Dr. Adams who performed the tracheostomy portion of the procedure (please see separate operative note), asked for the endotracheal tube to be withdrawn slowly. The upper trachea was visualized and appeared normal. At this point, Dr. Adams placed the tracheostomy tube under direct visualization by fiberoptic bronchoscopy. Please see separate operative note for more details on Tracheostomy placement. Once the tracheostomy tube was placed, the bronchoscope was withdrawn from the endotracheal tube and placed through the tracheostomy tube. The tracheostomy tube appeared to be in good position approximately 3 cm above the heladio. The bronchoscope was then withdrawn. The procedure was terminated and the patient was returned to ICU in stable condition. Complication: none immediate
--- NOTE | 2021-05-13 15:16 | XRay Report ---
CHEST 1 VIEW 05/13/2021 2:55 PM INDICATION / CLINICAL INFORMATION: tracheostomy. COMPARISON: 05/03/2021 FINDINGS: SUPPORT DEVICES: Tracheostomy catheter and NG tube in satisfactory position. HEART / MEDIASTINUM: No significant abnormality. LUNGS / PLEURA: Bilateral pulmonary opacity remains with overall mild improvement. Mild improving aer ation. No pneumothorax. ADDITIONAL FINDINGS: No significant additional findings. IMPRESSION: Mild interval improvement. Signer Name: Dg Yin MD Signed: 05/13/2021 3:11 PM Workstation Name: [id number]
--- NOTE | 2021-05-13 15:26 | Post Anesthesia Evaluation ---
- Post Anesthesia Evaluation Patient Participated: Yes Airway Patent: Yes Stable Respiratory Function: Yes Nausea/Vomiting: No Temp > 96.8F: Yes Pain Manageable: Yes Adequeate Hydration: Yes Anesthesia Complications: No Block Receding Appropriately: Not Applicable Patient on Ventilator: No
--- NOTE | 2021-05-13 16:11 | XRay Report ---
ABDOMEN 1 VIEW(S) INDICATION / CLINICAL INFORMATION: NGT placement. COMPARISON: None available. FINDINGS: TUBES / LINES: The nasogastric tube terminates in the distal stomach near the pylorus. BOWEL GAS PATTERN: No significant abnormality. FREE AIR / EXTRALUMINAL GAS: None seen. ADDITIONAL FINDINGS: No significant additional findings. IMPRESSION: Adequate placement of the nasogastric tube. No acute process. Signer Name: Hermilo Hamm Jr, MD Signed: 05/13/2021 4:07 PM Workstation Name: [id number]
[2021-05-14] MEDS: LEVOTHYROXINE 50 MCG TAB PO SCH (05:27)
[2021-05-14] MEDS: INSULIN LISPRO 100 UNIT/ML SUB-Q SCH ×3 (05:42→18:15)
[2021-05-14 05:43] LABS: Hematocrit 25.6 % (30.3-42.9); Hemoglobin 8.3 gm/dl (10.1-14.3); Mean Corpuscular HGB Conc 33 % (30-34); Mean Corpuscular Volume 85 fl (79-97); Platelet Count 482 K/mm3 (140-440); Red Blood Count 3.02 M/mm3 (3.65-5.03); Red Cell Distribution Width 15.5 % (13.2-15.2)
[2021-05-14 06:03] LABS: Calcium 8.1 mg/dL (8.4-10.2)
[2021-05-14] MEDS ORDERED: SODIUM CHLORIDE 0.9% 1000 ML 1,000 ML IV SCH (08:30)
[2021-05-14] MEDS: SODIUM BICARBONATE 650 MG TAB PO SCH ×3 (08:48→19:10)
[2021-05-14] MEDS: amLODIPine 5 MG TAB PO SCH (09:49)
[2021-05-14] MEDS: HEPARIN 5,000 UNIT/1 ML VIAL SUB-Q SCH ×2 (09:50→22:57)
[2021-05-14] MEDS: FAMOTIDINE 10 MG TAB FEEDTUBE SCH ×2 (09:50→22:57)
[2021-05-14] MEDS: ASPIRIN 81 MG TAB CHEW FEEDTUBE SCH (09:50)
[2021-05-14] MEDS: SENNOSIDES/DOCUSATE SODIUM 8.6/50 MG TAB FEEDTUBE SCH ×2 (09:50→22:57)
[2021-05-14] MEDS: ACETAMINOPHEN 325 MG TAB PO PRN (09:50)
--- NOTE | 2021-05-14 11:00 | Progress Note ---
Assessment and Plan Assessment and plan: This is a 80-year-old female, fdc resident with past medical history of GERD, hypothyroidism, hyperlipidemia, schizophrenia and dementia admitted with hypothermia, hyponatremia, hypokalemia, lactic acidosis, acute kidney injury, rhabdomyolysis and hyperosmolar nonketotic state. Hospital Course to Date: 04/21: Given 1 L LR bolus per nephrology and D5W increased to 125 mL's per hour, COVID-19 PCR pending, CXR and ABG ordered as patient was weaned from BiPAP to 3 L nasal cannula however was uptitrated back to nonrebreather. Will obtain blood cultures x2 given her leukocytosis and hypothermia. Replace potassium. Neurosurgery and neurology consulted and Luther catheter placed. 04/22: Improvement to sodium noted, slight hypokalemia which will be repleted, slight improvement to renal function, LFTs and rhabdomyolysis. Seen by neurosurgery today. Patient still making urine. transition to ssi and start TF as AG 15 04/23/2021: Given racemic epinephrine again due to stridor, continue IV fluids per nephrology, continue to trend sodium and BMP. 04/24/2021: 70/30 increased d/t hyperglycemia but recent BMP showed BG>300, gave additional 5 units IV insulin and ordered 5 units TID scheduled. However after IV insulin her PCOT was 400. Start on insulin gtt for hyperglycemia. Per RN she was not of IV D5 overniught d/t having one IV which was needed for emergency. Day RN did start dextrose. Remains with hyperglycemia. 04/25: Patient obtunded, withdrawal to pain only, on 50%Venti mask SPO2 abobe 92%. Plan to transition to SubQ insulin. Patient with mild hypernatremia this am, FWF added, will stop IVF for now. 04/26: Patient s/p intubation this am. Mentation is unchanged, plan for MRI brain today per NeuroSurg. Still hyperglycemic, hypernatremia improved, D5W D/katlyn, and basal insulin adjusted. 04/27: Bronch overnight. CXR with mild improvement. D/w Nephro plan for HD today, RIJ VasCath inserted. MRI on hold per [facility] patient is too unstable at this time, plan for possible spinal drained tomorrow to see if mentation will improve. 04/28: Tolerated HD overnight, only UF. Mentation remains the same. D/w CCM plan for possible large volume spinal tap under fluoroscopy today. Plan for possible HD again today. Continue FWF for elevated Na. 04/29: MARY overnight. Plan for spinal tap this am. febrile overnight with leukocytosis, remains on pressors and more tachycardic now. Will panculture patient, and empiric IV was initiated. Remains hyperglycemic, basal insulin adjusted. 04/30: Patient's mentation remains unchanged post spinal tap. Plan for possible MR I brain next week. Afebrile overnight and leukocytosis improved, However, vent settings are going up and this am ABG with hypoxia, this am CXR with worsening opacities. Patient with 3+ pitting edema. Continue HD per Nephro. Continue current empiric IV abx, f/u on culture data, might need to get ID on board if worsen. 05/01: Mentation is unchanged, still on pressors. Febrile this am, continue IV abx , ID consulted. 3L out yesterday, plan for HD again tomorrow. Plt count improved, might need to restart AC, will D/w CCM. 05/02: No change in mentation and she is now noted to be decorticating to pain -> MRI brain ordered. Scheduled for HD today. ID consult completed. 05/03: Neurology consulted given MRI findings of multiple acute CVAs, LINCOLN ordered, EEG pending, started on aspirin and Lipitor. updated POA 05/04: Received hemodialysis today, will schedule for LINCOLN today however HD was ongoing at the time neurology will obtain MRA brain and neck then consider LINCOLN, increasing midodrine to aid in weaning Levophed. 05/05: MRA/MRV completed today, urine culture grew Roselyn and was started on flu conazole, LINCOLN tentatively scheduled for tomorrow. Resume tube feeding and n.p.o. at midnight. 05/06: Patient was scheduled for LINCOLN which was attempted however patient became hypotensive and the procedure was aborted. She received HD today. No acute events reported overnight. Tube feedings resumed. 05/07: No acute changes overnight. 05/08: May need permacath, goals of care to be discussed and will likely happen after neuro recommendations tomorrow since LINCOLN was unable to be completed. No acute events overnight. Replete mag, decreased midodrine. 05/09: MARY overnight. Patient remains unresponsive. No HD today per Nephro, low K repleted. D/w CCM plan for possible conference call with patient's POA tomorrow to further discuss plan of care and possible alternatives. 05/10: Mentation unchanged. Given patient multiple failed PST, plan for possible trach and PEG per [facility]. General Surgery consulted. No plan for HD today, low K repleted. Proph AC resumed, plt is stable. 05/11: Na remains elevated, continue FWF. Mildly hypertensive, continue PRN Hydral for SBP> 170. Possible trach and Peg on sunday by Gen. Surgery. 05/12: Renal function continue to improve, no indication for any more HD, VasCath D/katlyn. Hypernatremia improved, D/C IVF continue FWF. Hypertensive overnight, Norvasc added and PRN labetalol for SBP greater than 170. NPO After midnight tonight for possible trach and PEG in the am by Gen surgery 05/13: MARY overnight. Plan for Trach and PEG today by Gen. Surgery. Per case ifrah mckenzie arrangement made for possible LTAC tomorrow. 05/14: s/p tracheostomy, no signs of any complications noted. Febrile this am with low BP and tachycardia, WBcs wnr. Orders placed X1L of IVF, UA, and blood culture. Awaiting PEGT placement by IR. D/C planning for LTAC possibly next week. Assessment and Plan #Neuro:Acute CVA #Acute metabolic encephalopathy #Normal Pressure Hydrocephalus -CT head shows lateral ventricles and third ventricle dilation, raises possibility of normal pressure hydrocephalus -Neurology and neurosurgery consulted, appreciate recommendations -neurosurgery no acute interventions -04/29 s/p spinal tap- 24ml out -MRI brain with multiple ischemic events in both hemisphere, possible embolic event with water shed infarct can not be totally excluded. -Continue ASA and lipitor -Maintain sleep-wake cycle -Avoid delirium -Hold off on restarting home antipsychotic medications #Hypotension-improved #Tachycardia #Sepsis -Was hypotensive, multifactorial-hypovelemia vs infectious process -S/p pressors -BP is now stable, Midodrine D/C -Norvasc added & PRN Labetalol -Continue blood pressure monitor per protocol -Maintain MAP above 65 and SBP less than 170 #Respiratory: Acute hypoxic respiratory failure #CAP #Possible Aspiration -S/p intubation this am 1/4 -Vent setting:PRVC-30%,6,14,450 -/ s/p bronchoscopy, this am CXR with mild improvement -No ABG this am -CCM consulted, appreciate recommendations -VAP bundle addressed -Aspiration precaution HOB above 30 -PRN ABG and CXR per CCM -Continue SPO2 monitoring for SPO2 goal above 92% -Multiple failed PST -plan for possible trach/PEG today -Gen. Surgery consulted #GI:Transaminitis #Hypoalbuminemia -Presented with transaminitis -Trend LFTs -Continue enteral nutrition- NPO AMN tonight -Ntr consult for TF -BR: Senokot -PPI #:Acute Kidney Injury (SYED) likely secondary to vasomotor nephropathy #Hypokalemia #Hypernatremia-improved #Urinary Retention-resolved -FeNA 0.50 indicating prerenal sate -Nephrology and CCM consulted, appreciate recommendations -04/27 vascath inserted and HD initiated, patient tolerated it well -Continue HD per Nephro -No HD per Nephro -Luther catheter placed for strict intake and output -Avoid nephrotoxic medication, Renally dose medications -K repleted -Continue to monitor and replace electrolytes as needed -Trend BMP #ID:CAP #Urinary Tract Infection(UTI) -Patient presented hypothemic -CXR shows increased interstitial prominence of densities in bilateral lungs -COVID-19 PCR negative -Blood culture x2 NGTD -Antibiotic therapy course ended today 04/25 -Bculture and sputum NGTD, UA with pyuria, culture + yeast -Febrile today, repeat Bculture and UA -Monitor WBC and fever curve -Daily CBC monitor -ID consulted #Endo:Hyperglycemia #s/p HHNK -Transition to SubQ insulin -Continue high dose SSI Q6hrs -Continue Basal, NPH -Avoid hypoglycemia #Heme:Thrombocytopenia-resolved -Presented with low plt, unknown etiology -Plt count improved -Resumed AC- Heparin SubQ -Trend CBC -Transfuse to hemoglobin less than 7 -Monitor for bleeding -r/o DVT, BE doppler neg -SCD to bilateral lower extremities while in bed DISPOSITION: LTAC Placement, possibly Next Week The high probability of a clinically significant, sudden or life threatening de terioration of the [Multiple] system(s) required my full and direct attention, intervention and personal management. The aggregate critical care time was [60] minutes. This time is in addition to time spent performing reported procedures but includes the following: [x] Data Review and interpretation [x] Patient assessment and monitoring of vital signs [x] Documentation [x] Medication orders and management Disposition Plan: ICU Total Time Spent with Patient (Minutes): 60 History Interval history: Patient seen and examined at the bedside. S/p Tracheostomy, remains on the vent. Mentation unchanged. Febrile this am with low BP and tachycardia, otherwise MARY overnight Hospitalist Physical - Constitutional Vitals: Temp Pulse Resp BP Pulse Ox 101.4 F H 107 H 19 145/64 100 05/14/21 07:22 05/14/21 09:49 05/14/21 06:00 05/14/21 09:49 05/14/21 08:00 General appearance: Present: no acute distress, other (Unresponsive) - EENT Eyes: Present: PERRL - Respiratory Respiratory effort: normal Respiratory: bilateral: rhonchi - Cardiovascular Rhythm: regular Heart Sounds: Present: S1 & S2 - Extremities Extremities: no ischemia, pulses intact, pulses symmetrical Extremity abnormal: edema - Peripheral Assessment Generalized Edema Type: Non-pitting Edema Degree: 1+ Capillary Refill: < 3 seconds Skin Temperature: Warm Peripheral Pulses: within normal limits - Abdominal General gastrointestinal: soft, non-distended, normal bowel sounds - Integumentary Integumentary: Present: warm, dry - Psychiatric Psychiatric: other (Unresponsive) - Neurologic Neurologic: other (Unresponsive) - Allied Health Allied health notes reviewed: nursing HEART Score - HEART Score Troponin: Troponin T 0.021 ng/mL (0.00-0.029) 04/20/21 17:10 Results - Labs CBC & Chem 7: 05/14/21 04:43 05/14/21 04:43 Labs: Laboratory Last Values WBC 10.1 K/mm3 (4.5-11.0) 05/14/21 04:43 RBC 3.02 M/mm3 (3.65-5.03) L 05/14/21 04:43 Hgb 8.3 gm/dl (10.1-14.3) L 05/14/21 04:43 Hct 25.6 % (30.3-42.9) L 05/14/21 04:43 MCV 85 fl (79-97) 05/14/21 04:43 MCH 28 pg (28-32) 05/14/21 04:43 MCHC 33 % (30-34) 05/14/21 04:43 RDW 15.5 % (13.2-15.2) H 05/14/21 04:43 Plt Count 482 K/mm3 (140-440) H 05/14/21 04:43 Add Manual Diff Complete 04/28/21 04:00 Total Counted 100 04/28/21 04:00 Seg Neutrophils % Inspector Tester Sorter 04/28/21 04:00 Seg Neuts % (Manual) 77.0 % (40.0-70.0) H 04/26/21 09:33 Band Neutrophils % 2.0 % 04/28/21 04:00 Lymphocytes % (Manual) 1.0 % (13.4-35.0) L 04/28/21 04:00 Reactive Lymphs % (Man) 0 % 04/28/21 04:00 Monocytes % (Manual) 1.0 % (0.0-7.3) 04/28/21 04:00 Eosinophils % (Manual) 3.0 % (0.0-4.3) 04/28/21 04:00 Metamyelocytes % 1.0 % 04/28/21 04:00 Myelocytes % 0 % 04/28/21 04:00 Promyelocytes % 0 % 04/28/21 04:00 Blast Cells % 0 % 04/28/21 04:00 Nucleated RBC % 4.0 % (0.0-0.9) H 04/28/21 04:00 Seg Neutrophils # Man 11.6 K/mm3 (1.8-7.7) H 04/28/21 04:00 Band Neutrophils # 0.3 K/mm3 04/28/21 04:00 Lymphocytes # (Manual) 0.1 K/mm3 (1.2-5.4) L 04/28/21 04:00 Abs React Lymphs (Man) 0.0 K/mm3 04/28/21 04:00 Monocytes # (Manual) 0.1 K/mm3 (0.0-0.8) 04/28/21 04:00 Eosinophils # (Manual) 0.4 K/mm3 (0.0-0.4) 04/28/21 04:00 Basophils # (Manual) 0.0 K/mm3 (0.0-0.1) 04/28/21 04:00 Metamyelocytes # 0.1 K/mm3 04/28/21 04:00 Myelocytes # 0.0 K/mm3 04/28/21 04:00 Promyelocytes # 0.0 K/mm3 04/28/21 04:00 Blast Cells # 0.0 K/mm3 04/28/21 04:00 WBC Morphology Not Reportable 04/28/21 04:00 Hypersegmented Neuts Not Reportable 04/28/21 04:00 Hyposegmented Neuts Not Reportable 04/28/21 04:00 Hypogranular Neuts Not Reportable 04/28/21 04:00 Smudge Cells Not Reportable 04/28/21 04:00 Toxic Granulation Not Reportable 04/28/21 04:00 Toxic Vacuolation Not Reportable 04/28/21 04:00 Dohle Bodies Not Reportable 04/28/21 04:00 Pelger-Huet Anomaly Not Reportable 04/28/21 04:00 Moni Rods Not Reportable 04/28/21 04:00 Platelet Estimate Consistent w auto 04/28/21 04:00 Clumped Platelets Not Reportable 04/28/21 04:00 Plt Clumps, EDTA Not Reportable 04/28/21 04:00 Large Platelets Few 04/28/21 04:00 Giant Platelets Not Reportable 04/28/21 04:00 Platelet Satelliting Not Reportable 04/28/21 04:00 Plt Morphology Comment Not Reportable 04/28/21 04:00 RBC Morphology Not Reportable 04/28/21 04:00 Dimorphic RBCs Not Reportable 04/28/21 04:00 Polychromasia Not Reportable 04/28/21 04:00 Hypochromasia Not Reportable 04/28/21 04:00 Poikilocytosis Not Reportable 04/28/21 04:00 Anisocytosis Not Reportable 04/28/21 04:00 Microcytosis Not Reportable 04/28/21 04:00 Macrocytosis Not Reportable 04/28/21 04:00 Spherocytes Not Reportable 04/28/21 04:00 Pappenheimer Bodies Not Reportable 04/28/21 04:00 Sickle Cells Not Reportable 04/28/21 04:00 Target Cells 1+ 04/28/21 04:00 Tear Drop Cells Not Reportable 04/28/21 04:00 Ovalocytes Not Reportable 04/28/21 04:00 Helmet Cells Not Reportable 04/28/21 04:00 Parkinson-[place] Bodies Not Reportable 04/28/21 04:00 [place] Rings Not Reportable 04/28/21 04:00 [place] Cells Not Reportable 04/28/21 04:00 Bite Cells Not Reportable 04/28/21 04:00 Crenated Cell Not Reportable 04/28/21 04:00 Elliptocytes Not Reportable 04/28/21 04:00 Acanthocytes (Spur) Not Reportable 04/28/21 04:00 Rouleaux Not Reportable 04/28/21 04:00 Hemoglobin C Crystals Not Reportable 04/28/21 04:00 Schistocytes Not Reportable 04/28/21 04:00 Malaria parasites Not Reportable 04/28/21 04:00 Herrera Bodies Not Reportable 04/28/21 04:00 Hem Pathologist Commnt No 04/28/21 04:00 PT 14.7 Sec. (12.2-14.9) 05/13/21 04:24 INR 1.04 (0.87-1.13) 05/13/21 04:24 APTT 36.6 Sec. (24.2-36.6) 04/28/21 05:00 Heparin Anti-Xa, Unfract Negative (Negative) 04/24/21 17:29 ABG pH 7.487 (7.320-7.450) H 05/02/21 04:34 POC ABG pCO2 35.3 mmHg (32.0-48.0) 05/02/21 04:34 ABG pCO2 31.6 mm Hg 04/21/21 15:47 POC ABG pO2 78.6 mmHg (83-108) L 05/02/21 04:34 ABG pO2 168.1 mm Hg (80.0-90.0) H 04/21/21 15:47 POC ABG HCO3 26.1 05/02/21 04:34 ABG HCO3 23.3 mmol/L (20.0-26.0) 04/21/21 15:47 ABG O2 Saturation 96.0 (0-100) 05/02/21 04:34 ABG O2 Content 12.7 (0.0-44) 04/21/21 15:47 POC ABG Base Excess 2.9 05/02/21 04:34 ABG Base Excess 0.3 mmol/L (-2.0-3.0) 04/21/21 15:47 ABG Hemoglobin 11.5 (12.0-17.5) L 05/02/21 04:34 ABG Oxyhemoglobin 95.1 (94-98) 05/02/21 04:34 ABG Carboxyhemoglobin 1.0 % (0.0-5.0) 04/21/21 15:47 ABG Methemoglobin 0.3 (0.0-1.5) 05/02/21 04:34 ABG Sodium 138.6 mmol/L (136.0-145.0) 05/02/21 04:34 ABG Potassium 3.4 mmol/L (3.40-4.50) 05/02/21 04:34 ABG Chloride 105.0 mmol/L (98-107) 05/02/21 04:34 ABG Glucose 122 mg/dL (65-95) H 05/02/21 04:34 VBG pH 7.397 (7.320-7.420) 04/20/21 17:10 Oxyhemoglobin 97.5 % (95.0-99.0) 04/21/21 15:47 Carboxyhemoglobin 0.6 (0.5-1.5) 05/02/21 04:34 FiO2 100 % 04/21/21 15:47 FiO2 % 40.0 05/02/21 04:34 Sodium 138 mmol/L (137-145) 05/14/21 04:43 Potassium 4.0 mmol/L (3.6-5.0) 05/14/21 04:43 Chloride 104.1 mmol/L (98-107) 05/14/21 04:43 Carbon Dioxide 23 mmol/L (22-30) 05/14/21 04:43 Anion Gap 15 mmol/L 05/14/21 04:43 BUN 29 mg/dL (7-17) H 05/14/21 04:43 Creatinine 1.2 mg/dL (0.6-1.2) 05/14/21 04:43 Estimated GFR 52 ml/min 05/14/21 04:43 BUN/Creatinine Ratio 24 % 05/14/21 04:43 Glucose 192 mg/dL (65-100) H 05/14/21 04:43 POC Glucose 190 mg/dL (70-105) H 05/14/21 05:37 Hemoglobin A1c 17.1 % (4-6) H 04/22/21 15:55 Lactic Acid 1.90 mmol/L (0.7-2.0) 04/20/21 19:56 Calcium 8.1 mg/dL (8.4-10.2) L 05/14/21 04:43 Phosphorus 3.20 mg/dL (2.5-4.5) 05/14/21 04:43 Magnesium 2.20 mg/dL (1.7-2.3) 05/14/21 04:43 Iron 62 ug/dL (37-170) 04/24/21 17:29 TIBC 285 mcg/dL (250-450) 04/24/21 17:29 % Saturation 21.75 % 04/24/21 17:29 Transferrin 112 mg/dl (192-382) L 04/24/21 17:29 Total Bilirubin 0.20 mg/dL (0.1-1.2) 05/03/21 04:00 Direct Bilirubin < 0.2 mg/dL (0-0.2) 04/29/21 04:00 Indirect Bilirubin 0.1 mg/dL 04/29/21 04:00 AST 53 units/L (5-40) H 05/03/21 04:00 ALT 55 units/L (7-56) 05/03/21 04:00 Alkaline Phosphatase 149 units/L (35-129) H 05/03/21 04:00 Ammonia 29.0 umol/L (25-60) 04/20/21 17:10 Total Creatine Kinase 1000 units/L (30-135) H 04/27/21 07:43 CK-MB (CK-2) 36.0 ng/mL (0.0-4.0) H 04/20/21 17:10 CK-MB (CK-2) Rel Index 0.9 (0-4) 04/20/21 17:10 Troponin T 0.021 ng/mL (0.00-0.029) 04/20/21 17:10 Serum Total Protein 5.5 g/dL (6.1-8.1) L 04/22/21 08:59 Total Protein 5.2 g/dL (6.3-8.2) L 05/03/21 04:00 Albumin 1.5 g/dL (3.9-5) L 05/03/21 04:00 Albumin/Globulin Ratio 0.4 % 05/03/21 04:00 Xtwsh-2-Qilsivnfr 0.6 g/dL (0.2-0.3) H 04/22/21 08:59 Lbvmh-7-Nwwcmzjef 1.0 g/dL (0.5-0.9) H 04/22/21 08:59 Beta Globulins 0.3 g/dL (0.2-0.5) 04/22/21 08:59 Gamma Globulins 0.6 g/dL (0.8-1.7) L 04/22/21 08:59 Abnorm Protein Band 1 see below 04/22/21 08:59 PEP Interpretation see below H 04/22/21 08:59 Triglycerides 80 mg/dL (2-149) 05/04/21 04:48 Cholesterol 90 mg/dL (50-199) 05/04/21 04:48 LDL Cholesterol Direct 51 mg/dL (50-130) 05/04/21 04:48 HDL Cholesterol 24 mg/dL (40-59) L 05/04/21 04:48 Cholesterol/HDL Ratio 3.75 % 05/04/21 04:48 Serotonin Release Assay See scanned result 04/24/21 17:29 TSH 6.040 mlU/mL (0.270-4.200) H 04/20/21 17:10 Free T4 0.93 ng/dL (0.76-1.46) 04/20/21 17:10 Arterial Blood Glucose 122 mg/dL (65-95) H 05/02/21 04:34 Arterial Blood Ionized Calcium 4.5 mg/dL (4.6-5.3) L 04/28/21 05:18 Urine Color Yellow (Yellow) 04/29/21 13:30 Urine Turbidity Turbid (Clear) 04/29/21 13:30 Urine pH 5.0 (5.0-7.0) 04/29/21 13:30 Ur Specific [place] 1.010 (1.003-1.030) 04/29/21 13:30 Urine Protein 100 mg/dl mg/dL (Negative) 04/29/21 13:30 Urine Glucose (UA) 150 mg/dL (Negative) 04/29/21 13:30 Urine Ketones Neg mg/dL (Negative) 04/29/21 13:30 Urine Blood Lg (Negative) 04/29/21 13:30 Urine Nitrite Neg (Negative) 04/29/21 13:30 Urine Bilirubin Neg (Negative) 04/29/21 13:30 Urine Urobilinogen < 2.0 mg/dL (<2.0) 04/29/21 13:30 Ur Leukocyte Esterase Lg (Negative) 04/29/21 13:30 Urine WBC (Auto) > 182.0 /HPF (0.0-6.0) H 04/29/21 13:30 Urine RBC (Auto) > 182.0 /HPF (0.0-6.0) 04/29/21 13:30 U Epithel Cells (Auto) 4.0 /HPF (0-13.0) 04/29/21 13:30 Urine WBC Clumps 3+ /HPF 04/29/21 13:30 Urine Mucus Few /HPF 04/29/21 13:30 Urine Yeast (Budding) 3+ /HPF 04/29/21 13:30 Urine Osmolality 446 Mosm/kg 04/21/21 08:01 Urine Total Volume 1700 ml 05/08/21 09:34 Urine Creatinine 56.0 mg/dL (0.1-20.0) H 05/08/21 09:34 Ur Creatinine 24 Hour 1.0 (0.8-2.8) 05/08/21 09:34 Urine Sodium 71 mmol/L 04/21/21 08:01 Urine Total Protein 12 mg/dL (5-11.8) H 04/21/21 08:01 CSF Appearance Clear 04/29/21 11:45 CSF Color Colorless 04/29/21 11:45 CSF WBC 14 /mm3 (1-10) 04/29/21 11:45 CSF RBC 324 /mm3 (0-0) 04/29/21 11:45 CSF Seg Neutrophils 50.0 % (0-6) 04/29/21 11:45 CSF Lymphocytes % 40.0 % (40-80) 04/29/21 11:45 CSF Reactive Lymphs Not Reportable 04/29/21 11:45 CSF Monocytes % 10.0 % (15-45) 04/29/21 11:45 CSF Eosinophils % Not Reportable 04/29/21 11:45 CSF Basophils Not Reportable 04/29/21 11:45 CSF Pathologist Review C 04/29/21 11:45 CSF Glucose 161 mg/dL 04/29/21 11:45 CSF Total Protein 51 mg/dL 04/29/21 11:45 Plasma/Serum Alcohol < 0.01 % (0-0.07) 04/20/21 17:10 Heparin-induced Plt Ab Negative (Negative) 04/24/21 17:29 UF Heparin High Dose 1 % Release 04/24/21 17:29 EFE UFH Low Dose 0.1 0 % Release 04/24/21 17:29 EFE UFH Low Dose 0.5 0 % Release 04/24/21 17:29 Coronavirus (PCR) Negative (Negative) 04/21/21 Unknown Hepatitis A IgM Ab Non-reactive (NonReactive) 04/27/21 12:49 Hep Bs Antigen Nonreactive (Negative) 04/27/21 12:49 Hep B Core IgM Ab Non-reactive (NonReactive) 04/27/21 12:49 Hepatitis C Antibody Non-reactive (NonReactive) 04/27/21 12:49 Blood Type O POSITIVE 05/02/21 12:00 Antibody Screen Negative 05/02/21 12:00 Crossmatch See Detail 05/02/21 12:00 Microbiology: Microbiology 05/02/21 Unknown Urine,Catheterized - Indwelling Catheter Urine Culture - Final Roselyn Tropicalis Luther/IV: Voiding Method Indwelling Catheter Active Medications - Current Medications Current Medications: Generic Name Dose Route Start Last Admin Trade Name Freq PRN Reason Stop Dose Admin Acetaminophen 650 mg 04/20/21 21:31 05/14/21 09:50 Acetaminophen 325 Mg Tab PO 650 mg Q4H PRN Administration Pain MILD(1-3)/Fever >100.5/TURCIOS Albumin Human 25 gm 05/06/21 16:06 05/06/21 16:21 Albumin Human 25% (25 Gm/100 Ml) Inj IV 25 gm MITCH PRN Administration Hypotension Albuterol 2.5 mg 04/22/21 14:49 04/23/21 15:18 Albuterol 2.5 Mg/3 Ml Nebu IH 2.5 mg Q4HRT PRN Administration Shortness Of Breath Amlodipine Besylate 5 mg 05/12/21 10:00 05/14/21 09:49 Amlodipine 5 Mg Tab PO 5 mg QDAY AZIZA Administration Lipase/Protease/Amylase 1 each 04/25/21 14:13 Lipase 10,500/Protease 25,000/Amylase 43,750 (Units) Dr Vasquez FEEDTUBE PRN PRN For Clogged Feeding Tube Aspirin 81 mg 05/04/21 10:00 05/14/21 09:50 Aspirin 81 Mg Tab Chew FEEDTUBE 81 mg QDAY AZIZA Administration Atorvastatin Calcium 40 mg 05/04/21 22:00 05/13/21 21:39 Atorvastatin 40 Mg Tab FEEDTUBE 40 mg QHS AZIZA Administration Dextrose 50 ml 04/24/21 11:36 Dextrose 50% In Water (25gm) 50 Ml Syringe IV Q30MIN PRN Hypoglycemia Protocol Famotidine 10 mg 04/27/21 10:00 05/14/21 09:50 Famotidine 10 Mg Tab FEEDTUBE 10 mg BID AZIZA Administration Heparin Sodium (Porcine) 5,000 unit 05/10/21 22:00 05/14/21 09:50 Heparin 5,000 Unit/1 Ml Vial SUB-Q 5,000 unit Q12HR AZIZA Administration Hydrophilic Ointment 1 applic 04/26/21 11:16 Lip Therapy Vaseline TP Q2HR PRN Dry Lips Sodium Chloride 1,000 mls @ 100 mls/hr 05/14/21 08:30 05/14/21 09:53 Nacl 0.9% 1000 Ml IV 05/14/21 18:29 100 mls/hr DIRECT AZIZA Administration Insulin Human Lispro 0 unit 04/25/21 18:00 05/14/21 05:42 Insulin Lispro 100 Unit/Ml SUB-Q 3 unit Q6HR AZIZA Administration Protocol Labetalol HCl 20 mg 05/12/21 11:34 05/12/21 21:35 Labetalol 20 Mg/4 Ml Inj IV 20 mg Q4H PRN Administration SBP >/=170 Levothyroxine Sodium 50 mcg 05/03/21 06:00 05/14/21 05:27 Levothyroxine 50 Mcg Tab PO 50 mcg DAILY@0600 AZIZA Administration Lorazepam 1 mg 04/26/21 11:15 05/12/21 16:27 Lorazepam 2 Mg/Ml Vial IV 1 mg Q4H PRN Administration Sedation Metoclopramide HCl 5 mg 04/20/21 21:31 Metoclopramide 10 Mg/2 Ml Inj IV Q6H PRN Nausea And Vomiting Multi-Ingred Cream/Lotion/Oil/Oint 1 applic 04/26/21 11:16 Mineral Oil/Petrolatum, White Ophth Oint 3.5 Gm OU Q4HR PRN Dry Eye(s) Ondansetron HCl 4 mg 04/20/21 21:31 Ondansetron 4 Mg/2 Ml Inj IV Q8H PRN Nausea And Vomiting Senna/Docusate Sodium 1 tab 04/26/21 22:00 05/14/21 09:50 Sennosides/Docusate Sodium 8.6/50 Mg Tab FEEDTUBE 1 tab BID AZIZA Administration Simple Syrup 15 ml 04/25/21 14:13 Simple Syrup 15 Ml FEEDTUBE PRN PRN Hypoglycemia Simple Syrup 30 ml 04/25/21 14:13 Simple Syrup 15 Ml FEEDTUBE PRN PRN Hypoglycemia Sodium Bicarbonate 325 mg 04/25/21 14:13 04/27/21 13:00 Sodium Bicarbonate 325 Mg Tab FEEDTUBE 325 mg PRN PRN Administration For Clogged Feeding Tube Sodium Bicarbonate 1,300 mg 04/27/21 14:00 05/14/21 08:48 Sodium Bicarbonate 650 Mg Tab PO 1,300 mg TID AZIZA Administration Sodium Chloride 10 ml 04/20/21 22:00 05/14/21 09:51 Sodium Chloride 0.9% 10 Ml Flush Syringe IV 10 ml BID AZIZA Administration Sodium Chloride 10 ml 04/20/21 21:31 Sodium Chloride 0.9% 10 Ml Flush Syringe IV PRN PRN LINE FLUSH Nutrition/Malnutrition Assess - Dietary Evaluation Nutrition/Malnutrition Findings: Nutrition Notes Start: 04/21/21 12:15 Freq: Status: Active Protocol: Document 05/13/21 15:36 [email or web address] (Rec: 05/13/21 15:47 [facility] [id number]) Nutrition Notes Initial or Follow up Reassessment Current Diagnosis Sepsis,Respiratory Failure, Stroke Other Pertinent Diagnosis Acute metabolic encephalopathy , pneu, UTI Current Diet NPO Labs/Tests BUN 30 Mg 1.6 Pertinent Medications Mag sulfate x 1 dose Height 5 ft 2 in Weight 72.4 kg [place] Body Weight (kg) 50.00 BMI 29.2 Weight Status Overweight Subjective/Other Information Pt remains on vent support. TF off; pt scheduled for trach and PEG placement today. Unable to place PEG sec to suspected anatomical abnormality. Interventional radiology consulted for PEG placement. Per nephrology, SYED resolving; no indication for HD as VasCath has been removed. Minimum of two criteria No #1 Nutrition Diagnosis Inadequate oral intake Diagnosis Progress(for reassessment Continues documentation) Is patient on ventilator? Yes Is Patient Ambulatory and/or Out of Bed No REE-([place]-[facility] [facility]-confined to bed) 5024.420 Calculation Used for Recommendations [facility] Additional Notes Pro needs 1.2-2g/k-145g/ day Fluid needs 1ml/kcal Nutrition Intervention Nutrition Support: When feasible, resume TF, but change formula to Glucerna 1.2 at 50ml/hr with 80ml water flush q4h. Goal #1 Resume TF to meet nutrient needs Follow-Up By: 05/16/21 Additional Comments F/U: PEG placement, TF restart with Glucerna 1.2, vent status
--- NOTE | 2021-05-14 14:46 | Progress Note ---
Assessment and Plan Initialization Date: 05/13/21 11:01 Assessment and Plan 80 y/o female with altered mental state, severe electrolyte imbalance with presumptive acute renal failure and hypothermia. 05/14/2021:. Had trach done yesterday. However PEG was not placed. Await PEG placement prior to transfer to LTAC. Chest x-ray continues to show some patchy infiltrate even though slightly improved 05/13/21: Trach today. Per CM transfer to LTACH tomorrow. Supportive care 05/12/21: Daily PSV trials. NPO after midnight and chemistry in am. Trach tomorrow and then transfer over the weekend if all goes well. 05/11/21: Awaiting trach and peg placement. Discontinue vascath. Daily pSV trials. 05/10/21: Long discussion over phone with POA. Discussed what I felt was prognosis. Per POA, feels best thing to do at this moment is proceed with trach and peg. Will consult surgery for this. Spoke with renal and they feel she likely will not need HD anymore. Will keep catheter at least another 24-36 hours and likely remove sometime tomorrow. Continue daily PSV and other supportive measures. Placement post Trach. 05/09/21: Will reach out to neuro for more help. Read their note this am but need a definite plan. Would like to meet/talk with POA about next steps but need a better idea of what her neuro prognosis is. Continue daily PSV trials. Prognosis overall appears to be very guarded to poor. 05/08/21: Continue supportive measures. HD per renal. Follow up neuro recs tomorrow. Need to start talking with family about next steps but need neuro input. Daily pSV to document failing. 05/07/21: Continue supportive measures. HD per renal. Follow up neuro recs tomorrow. Need to start talking with family about next steps but need neuro input. 05/06/21: Await neurology recs now that LINCOLN Could not be done. Based on neurology note, no direct source for stroke on MRA. Patient was seen on this day and can be confirmed by staff. Not sure why my note did not save. 05/05/21: follow up neurology notes. They are discussing with cards the LINCOLN. Continue vent support. Poor prognosis. 05/04/21: follow up MRA when done. LINCOLN pending. HD per renal. Daily PSV trials as tolerated. Poor prognosis given MRI findings and lack of responsiveness off sedation. 05/03/21: Follow up Neurology recs for today. Attempt PSV trials. HD on yesterday. Very very guarded prognosis. 05/02/21: MRI today. Repeat cultures. HD per renal. Once MRI results back will discuss with Neurosurgery to see if anything further should be done. Abx per ID. Overall prognosis is very guarded to poor. 04/29/21: Will reach out to neuro after 24-48 hours post spinal tap pending any change in mentation. If improvement, may need to consider shunt placement. If not, not sure that there is anything they can offer. if they still want MRI, then can obtain. Now spiking temps. Blood cultures and UA. Given time frame in Hospital will place on Vanc and Cefepime. Guarded prognosis. HD per renal. Given anasarca, will ask renal about trying to remove volume. 04/28/21: Will discuss with renal about HD again today. MRI vs LP (large amount). Coags are ok. Will attempt to get at least one of these done today. Patient is still on 80% but sat is 100. Will ask STOCK TRACER about placing ART line tod ay. Wean FiO2 as tolerated. Guarded prognosis. 04/27/21: HD today per renal. Vascath placed and awaiting CXR for conformation of good placement (done and good). Vent weaning as tolerated for sats >88%. ABG in the AM. Will check Coags in the am and hopeful these are stable. Platelets need to above 50K. Would like to do large volume spinal tap to see if this helps with mentation. Will also obtain MRI once oxygen requirement improves. 04/26/21: WIll electively intubate and then obtain MRI. Pending MRI results, will likely order large volume spinal tap to assess if NPH is a factor or not. Guarded prognosis. Electrolytes are improving. 04/25/21: Continue to follow renal recs. Will reach out to POA either today or tomorrow for further updates. Follow up renal recs. Monitor electrolytes and renal function. Guarded prognosis. 1. Neuro-reached out to neuro surgery, placed consult in regards to CT findings 2. Renal-appreciate help and recs, will follow IV hydration recommendations 3. Blood cultures. Urine was negative 4. Jorge Hugger for temp Guarded prognosis CCT 31 minutes. Subjective Date of service: 05/14/21 Principal diagnosis: Acute respiratory failure Interval history: No significant change remains on mechanical ventilator. Objective Vital Signs - 12hr 05/14/21 05/14/21 05/14/21 03:00 03:31 04:00 Temperature 97.5 F L Pulse Rate 113 H 113 H 106 H Pulse Rate [ 107 H From Monitor] Respiratory 19 18 14 Rate Blood Pressure 130/71 130/71 121/58 O2 Sat by Pulse 99 99 99 Oximetry 05/14/21 05/14/21 05/14/21 04:26 04:31 05:00 Temperature Pulse Rate 102 H 102 H 106 H Pulse Rate [ From Monitor] Respiratory 14 16 Rate Blood Pressure 121/58 121/58 113/65 O2 Sat by Pulse 99 99 99 Oximetry 05/14/21 05/14/21 05/14/21 05:08 05:31 06:00 Temperature Pulse Rate 106 H 110 H 111 H Pulse Rate [ From Monitor] Respiratory 20 19 Rate Blood Pressure 113/65 122/74 O2 Sat by Pulse 99 99 Oximetry 05/14/21 05/14/21 05/14/21 06:31 07:00 07:22 Temperature 101.4 F H Pulse Rate 103 H 102 H Pulse Rate [ From Monitor] Respiratory 14 15 Rate Blood Pressure 122/74 128/59 O2 Sat by Pulse 100 100 Oximetry 05/14/21 05/14/21 05/14/21 07:31 08:00 08:31 Temperature Pulse Rate 104 H 103 H 102 H Pulse Rate [ 103 H From Monitor] Respiratory 14 14 14 Rate Blood Pressure 128/59 140/63 140/63 O2 Sat by Pulse 99 100 100 Oximetry 05/14/21 05/14/21 05/14/21 09:00 09:31 09:49 Temperature Pulse Rate 108 H 102 H 107 H Pulse Rate [ From Monitor] Respiratory 28 H 14 Rate Blood Pressure 145/64 145/64 145/64 O2 Sat by Pulse 100 99 Oximetry 05/14/21 05/14/21 05/14/21 10:00 10:31 11:00 Temperature Pulse Rate 109 H 94 H 96 H Pulse Rate [ From Monitor] Respiratory 24 14 12 Rate Blood Pressure 141/68 141/68 123/54 O2 Sat by Pulse 99 99 100 Oximetry 05/14/21 05/14/21 05/14/21 11:22 11:31 12:00 Temperature 99.9 F H Pulse Rate 95 H 104 H Pulse Rate [ 96 H From Monitor] Respiratory 14 14 Rate Blood Pressure 123/54 96/48 O2 Sat by Pulse 100 100 Oximetry 05/14/21 05/14/21 12:01 12:31 Temperature Pulse Rate 96 H 102 H Pulse Rate [ From Monitor] Respiratory 14 23 Rate Blood Pressure 108/55 108/55 O2 Sat by Pulse 100 100 Oximetry Constitutional: other (critically ill, somnolent, on vent) Eyes: non-icteric ENT: oropharynx dry Effort: other (tachypneic but not labored) Ascultation: Bilateral: clear Cardiovascular: regular rate and rhythm Gastrointestinal: normoactive bowel sounds Integumentary: normal Extremities: no cyanosis, no edema, pink and warm Neurologic: unable to assess Psychiatric: other (unable to assess) CBC and BMP: 05/14/21 04:43 05/14/21 04:43 ABG, PT/INR, D-dimer: ABG ABG pH 7.487 (7.320-7.450) H 05/02/21 04:34 POC ABG pCO2 35.3 mmHg (32.0-48.0) 05/02/21 04:34 ABG pCO2 31.6 mm Hg 04/21/21 15:47 POC ABG pO2 78.6 mmHg (83-108) L 05/02/21 04:34 ABG pO2 168.1 mm Hg (80.0-90.0) H 04/21/21 15:47 POC ABG HCO3 26.1 05/02/21 04:34 ABG O2 Saturation 96.0 (0-100) 05/02/21 04:34 PT/INR, D-dimer PT 14.7 Sec. (12.2-14.9) 05/13/21 04:24 INR 1.04 (0.87-1.13) 05/13/21 04:24 Abnormal lab findings: Abnormal Labs 04/20/21 04/20/21 04/20/21 17:10 17:10 17:10 WBC 17.4 H RBC 5.19 H Hgb Hct 46.8 H MCH 27 L RDW 17.2 H Plt Count Seg Neuts % (Manual) 98.0 H Lymphocytes % (Manual) 2.0 L Nucleated RBC % 1.0 H Seg Neutrophils # Man 17.1 H Lymphocytes # (Manual) 0.3 L PT ABG pH POC ABG pCO2 POC ABG pO2 ABG pO2 ABG O2 Saturation ABG Base Excess ABG Hemoglobin ABG Oxyhemoglobin ABG Potassium ABG Chloride ABG Glucose Oxyhemoglobin Carboxyhemoglobin Sodium 173 H* Potassium Chloride 132.9 H Carbon Dioxide 17 L BUN 120 H Creatinine 4.2 H Glucose 762 H* POC Glucose Hemoglobin A1c Lactic Acid Calcium Phosphorus Magnesium 3.80 H Transferrin AST 72 H ALT 63 H Alkaline Phosphatase 148 H Total Creatine Kinase 3697 H CK-MB (CK-2) 36.0 H Serum Total Protein Total Protein Albumin 2.2 L Aysnm-4-Ksyjnmwut Xluak-3-Mpfloorpd Gamma Globulins PEP Interpretation HDL Cholesterol TSH Arterial Blood Glucose Arterial Blood Ionized Calcium Urine WBC (Auto) Urine Creatinine Urine Total Protein Crossmatch 04/20/21 04/20/21 04/20/21 17:10 17:10 18:55 WBC RBC Hgb Hct MCH RDW Plt Count Seg Neuts % (Manual) Lymphocytes % (Manual) Nucleated RBC % Seg Neutrophils # Delbert Lymphocytes # (Manual) PT ABG pH POC ABG pCO2 POC ABG pO2 ABG pO2 ABG O2 Saturation ABG Base Excess ABG Hemoglobin ABG Oxyhemoglobin ABG Potassium ABG Chloride ABG Glucose Oxyhemoglobin Carboxyhemoglobin Sodium Potassium Chloride Carbon Dioxide BUN Creatinine Glucose POC Glucose 574 H Hemoglobin A1c Lactic Acid 2.60 H* Calcium Phosphorus Magnesium Transferrin AST ALT Alkaline Phosphatase Total Creatine Kinase CK-MB (CK-2) Serum Total Protein Total Protein Albumin Yxedw-6-Loloykapu Wegnm-3-Pltggewjb Gamma Globulins PEP Interpretation HDL Cholesterol TSH 6.040 H Arterial Blood Glucose Arterial Blood Ionized Calcium Urine WBC (Auto) Urine Creatinine Urine Total Protein Crossmatch 04/20/21 04/20/21 04/20/21 22:12 22:58 22:58 WBC RBC Hgb Hct MCH RDW Plt Count Seg Neuts % (Manual) Lymphocytes % (Manual) Nucleated RBC % Seg Neutrophils # Man Lymphocytes # (Manual) PT ABG pH POC ABG pCO2 POC ABG pO2 ABG pO2 ABG O2 Saturation ABG Base Excess ABG Hemoglobin ABG Oxyhemoglobin ABG Potassium ABG Chloride ABG Glucose Oxyhemoglobin Carboxyhemoglobin Sodium 172 H* Potassium 3.2 L Chloride 134.2 H Carbon Dioxide 17 L BUN 112 H Creatinine 3.8 H Glucose 803 H* POC Glucose 554 H Hemoglobin A1c Lactic Acid Calcium 8.3 L Phosphorus Magnesium 3.50 H Transferrin AST ALT Alkaline Phosphatase Total Creatine Kinase CK-MB (CK-2) Serum Total Protein Total Protein Albumin Vktiu-1-Lgaipxyda Fwagn-6-Timmlrcgz Gamma Globulins PEP Interpretation HDL Cholesterol TSH Arterial Blood Glucose Arterial Blood Ionized Calcium Urine WBC (Auto) Urine Creatinine Urine Total Protein Crossmatch 04/21/21 04/21/21 04/21/21 00:14 00:22 02:01 WBC RBC Hgb Hct MCH RDW Plt Count Seg Neuts % (Manual) Lymphocytes % (Manual) Nucleated RBC % Seg Neutrophils # Man Lymphocytes # (Manual) PT ABG pH POC ABG pCO2 POC ABG pO2 ABG pO2 ABG O2 Saturation ABG Base Excess ABG Hemoglobin ABG Oxyhemoglobin ABG Potassium ABG Chloride ABG Glucose Oxyhemoglobin Carboxyhemoglobin Sodium 176 H* 175 H* Potassium 2.9 L* 3.0 L Chloride 139.9 H 136.2 H Carbon Dioxide 17 L 19 L BUN 113 H 112 H Creatinine 3.9 H 3.6 H Glucose 729 H* 582 H* POC Glucose > 600 H Hemoglobin A1c Lactic Acid Calcium Phosphorus Magnesium Transferrin AST ALT Alkaline Phosphatase Total Creatine Kinase CK-MB (CK-2) Serum Total Protein Total Protein Albumin Gbghu-1-Dgyjnmyfx Mhrxx-5-Ezzjruuix Gamma Globulins PEP Interpretation HDL Cholesterol TSH Arterial Blood Glucose Arterial Blood Ionized Calcium Urine WBC (Auto) Urine Creatinine Urine Total Protein Crossmatch 04/21/21 04/21/21 04/21/21 03:11 03:20 03:41 WBC 14.1 H RBC Hgb Hct MCH 27 L RDW 16.8 H Plt Count 114 L Seg Neuts % (Manual) 97.0 H Lymphocytes % (Manual) 3.0 L Nucleated RBC % 1.0 H Seg Neutrophils # Man 13.7 H Lymphocytes # (Manual) 0.4 L PT ABG pH POC ABG pCO2 POC ABG pO2 ABG pO2 52.3 L ABG O2 Saturation 84.5 L ABG Base Excess -2.9 L ABG Hemoglobin ABG Oxyhemoglobin ABG Potassium ABG Chloride ABG Glucose Oxyhemoglobin 82.9 L Carboxyhemoglobin Sodium Potassium Chloride Carbon Dioxide BUN Creatinine Glucose POC Glucose 404 H Hemoglobin A1c Lactic Acid Calcium Phosphorus Magnesium Transferrin AST ALT Alkaline Phosphatase Total Creatine Kinase CK-MB (CK-2) Serum Total Protein Total Protein Albumin Bxsnn-8-Ksujpuqdy Ikuad-8-Qshocbehb Gamma Globulins PEP Interpretation HDL Cholesterol TSH Arterial Blood Glucose Arterial Blood Ionized Calcium Urine WBC (Auto) Urine Creatinine Urine Total Protein Crossmatch 04/21/21 04/21/21 04/21/21 03:41 04:24 05:45 WBC RBC Hgb Hct MCH RDW Plt Count Seg Neuts % (Manual) Lymphocytes % (Manual) Nucleated RBC % Seg Neutrophils # Man Lymphocytes # (Manual) PT ABG pH POC ABG pCO2 POC ABG pO2 ABG pO2 ABG O2 Saturation ABG Base Excess ABG Hemoglobin ABG Oxyhemoglobin ABG Potassium ABG Chloride ABG Glucose Oxyhemoglobin Carboxyhemoglobin Sodium 179 H* Potassium 2.9 L* Chloride 138.2 H Carbon Dioxide 20 L BUN 111 H Creatinine 3.7 H Glucose 465 H POC Glucose 353 H 280 H Hemoglobin A1c Lactic Acid Calcium Phosphorus Magnesium Transferrin AST 73 H ALT 61 H Alkaline Phosphatase 144 H Total Creatine Kinase CK-MB (CK-2) Serum Total Protein Total Protein Albumin 2.5 L Dcnnh-2-Pvwzvuksl Unygm-4-Zfhvrmqrp Gamma Globulins PEP Interpretation HDL Cholesterol TSH Arterial Blood Glucose Arterial Blood Ionized Calcium Urine WBC (Auto) Urine Creatinine Urine Total Protein Crossmatch 04/21/21 04/21/21 04/21/21 06:47 08:01 11:11 WBC RBC Hgb Hct MCH RDW Plt Count Seg Neuts % (Manual) Lymphocytes % (Manual) Nucleated RBC % Seg Neutrophils # Man Lymphocytes # (Manual) PT ABG pH POC ABG pCO2 POC ABG pO2 ABG pO2 ABG O2 Saturation ABG Base Excess ABG Hemoglobin ABG Oxyhemoglobin ABG Potassium ABG Chloride ABG Glucose Oxyhemoglobin Carboxyhemoglobin Sodium Potassium Chloride Carbon Dioxide BUN Creatinine Glucose POC Glucose 260 H 68 L Hemoglobin A1c Lactic Acid Calcium Phosphorus Magnesium Transferrin AST ALT Alkaline Phosphatase Total Creatine Kinase CK-MB (CK-2) Serum Total Protein Total Protein Albumin Pnhgo-7-Fincgwawj Biqce-4-Djtmgddji Gamma Globulins PEP Interpretation HDL Cholesterol TSH Arterial Blood Glucose Arterial Blood Ionized Calcium Urine WBC (Auto) Urine Creatinine 44.3 H Urine Total Protein 12 H Crossmatch 04/21/21 04/21/21 04/21/21 12:51 13:41 14:40 WBC RBC Hgb Hct MCH RDW Plt Count Seg Neuts % (Manual) Lymphocytes % (Manual) Nucleated RBC % Seg Neutrophils # Man Lymphocytes # (Manual) PT ABG pH 7.275 L POC ABG pCO2 POC ABG pO2 63.4 L ABG pO2 ABG O2 Saturation ABG Base Excess ABG Hemoglobin 8.4 L ABG Oxyhemoglobin 89.5 L ABG Potassium ABG Chloride 108.0 H ABG Glucose 404 H Oxyhemoglobin Carboxyhemoglobin Sodium Potassium Chloride Carbon Dioxide BUN Creatinine Glucose POC Glucose 146 H 186 H Hemoglobin A1c Lactic Acid Calcium Phosphorus Magnesium Transferrin AST ALT Alkaline Phosphatase Total Creatine Kinase CK-MB (CK-2) Serum Total Protein Total Protein Albumin Pdxlq-6-Xgqcanusp Whzzl-2-Qkcjmllsu Gamma Globulins PEP Interpretation HDL Cholesterol TSH Arterial Blood Glucose 404 H Arterial Blood Ionized Calcium Urine WBC (Auto) Urine Creatinine Urine Total Protein Crossmatch 04/21/21 04/21/21 04/21/21 15:47 16:25 17:57 WBC RBC Hgb Hct MCH RDW Plt Count Seg Neuts % (Manual) Lymphocytes % (Manual) Nucleated RBC % Seg Neutrophils # Man Lymphocytes # (Manual) PT ABG pH 7.486 H POC ABG pCO2 POC ABG pO2 ABG pO2 168.1 H ABG O2 Saturation 99.1 H ABG Base Excess ABG Hemoglobin 8.9 L ABG Oxyhemoglobin ABG Potassium ABG Chloride ABG Glucose Oxyhemoglobin Carboxyhemoglobin Sodium Potassium Chloride Carbon Dioxide BUN Creatinine Glucose POC Glucose 172 H 143 H Hemoglobin A1c Lactic Acid Calcium Phosphorus Magnesium Transferrin AST ALT Alkaline Phosphatase Total Creatine Kinase CK-MB (CK-2) Serum Total Protein Total Protein Albumin Ywnji-2-Kjtrrqstm Ikxaw-1-Ilshyrjqp Gamma Globulins PEP Interpretation HDL Cholesterol TSH Arterial Blood Glucose Arterial Blood Ionized Calcium Urine WBC (Auto) Urine Creatinine Urine Total Protein Crossmatch 04/21/21 04/21/21 04/21/21 18:49 19:10 20:26 WBC RBC Hgb Hct MCH RDW Plt Count Seg Neuts % (Manual) Lymphocytes % (Manual) Nucleated RBC % Seg Neutrophils # Man Lymphocytes # (Manual) PT ABG pH POC ABG pCO2 POC ABG pO2 ABG pO2 ABG O2 Saturation ABG Base Excess ABG Hemoglobin ABG Oxyhemoglobin ABG Potassium ABG Chloride ABG Glucose Oxyhemoglobin Carboxyhemoglobin Sodium 174 H* Potassium 7.2 H* D Chloride 138.2 H Carbon Dioxide 21 L BUN 99 H Creatinine 4.0 H Glucose 157 H POC Glucose 126 H 190 H Hemoglobin A1c Lactic Acid Calcium Phosphorus Magnesium Transferrin AST 134 H ALT 71 H Alkaline Phosphatase 135 H Total Creatine Kinase 3504 H CK-MB (CK-2) Serum Total Protein Total Protein Albumin 2.2 L Wcrty-0-Twqepxkkb Swoxt-6-Pbohrgexd Gamma Globulins PEP Interpretation HDL Cholesterol TSH Arterial Blood Glucose Arterial Blood Ionized Calcium Urine WBC (Auto) Urine Creatinine Urine Total Protein Crossmatch 04/21/21 04/21/21 04/21/21 20:53 21:52 22:55 WBC RBC Hgb Hct MCH RDW Plt Count Seg Neuts % (Manual) Lymphocytes % (Manual) Nucleated RBC % Seg Neutrophils # Man Lymphocytes # (Manual) PT ABG pH POC ABG pCO2 POC ABG pO2 ABG pO2 ABG O2 Saturation ABG Base Excess ABG Hemoglobin ABG Oxyhemoglobin ABG Potassium ABG Chloride ABG Glucose Oxyhemoglobin Carboxyhemoglobin Sodium Potassium Chloride Carbon Dioxide BUN Creatinine Glucose POC Glucose 116 H 135 H 158 H Hemoglobin A1c Lactic Acid Calcium Phosphorus Magnesium Transferrin AST ALT Alkaline Phosphatase Total Creatine Kinase CK-MB (CK-2) Serum Total Protein Total Protein Albumin Lfgyl-7-Oxesuupkk Fenvd-4-Sxbglkill Gamma Globulins PEP Interpretation HDL Cholesterol TSH Arterial Blood Glucose Arterial Blood Ionized Calcium Urine WBC (Auto) Urine Creatinine Urine Total Protein Crossmatch 04/21/21 04/22/21 04/22/21 23:00 00:01 00:39 WBC RBC Hgb Hct MCH RDW Plt Count Seg Neuts % (Manual) Lymphocytes % (Manual) Nucleated RBC % Seg Neutrophils # Man Lymphocytes # (Manual) PT ABG pH POC ABG pCO2 POC ABG pO2 ABG pO2 ABG O2 Saturation ABG Base Excess ABG Hemoglobin ABG Oxyhemoglobin ABG Potassium ABG Chloride ABG Glucose Oxyhemoglobin Carboxyhemoglobin Sodium 176 H* 171 H* Potassium Chloride 140.0 H Carbon Dioxide 20 L BUN 98 H Creatinine 3.9 H Glucose 206 H POC Glucose 182 H Hemoglobin A1c Lactic Acid Calcium Phosphorus Magnesium Transferrin AST ALT Alkaline Phosphatase Total Creatine Kinase 3240 H CK-MB (CK-2) Serum Total Protein Total Protein Albumin Lrntc-6-Urutkikuf Hegeq-5-Dlilsavsa Gamma Globulins PEP Interpretation HDL Cholesterol TSH Arterial Blood Glucose Arterial Blood Ionized Calcium Urine WBC (Auto) Urine Creatinine Urine Total Protein Crossmatch 04/22/21 04/22/21 04/22/21 00:58 01:04 04:52 WBC 11.2 H RBC Hgb Hct 44.3 H MCH 27 L RDW 17.1 H Plt Count 86 L Seg Neuts % (Manual) 86.0 H Lymphocytes % (Manual) 13.0 L Nucleated RBC % Seg Neutrophils # Man 9.6 H Lymphocytes # (Manual) PT ABG pH POC ABG pCO2 POC ABG pO2 ABG pO2 ABG O2 Saturation ABG Base Excess ABG Hemoglobin ABG Oxyhemoglobin ABG Potassium ABG Chloride ABG Glucose Oxyhemoglobin Carboxyhemoglobin Sodium Potassium Chloride Carbon Dioxide BUN Creatinine Glucose POC Glucose 176 H 143 H Hemoglobin A1c Lactic Acid Calcium Phosphorus Magnesium Transferrin AST ALT Alkaline Phosphatase Total Creatine Kinase CK-MB (CK-2) Serum Total Protein Total Protein Albumin Itkuc-0-Genvgjhbh Fiase-3-Hscobzlnb Gamma Globulins PEP Interpretation HDL Cholesterol TSH Arterial Blood Glucose Arterial Blood Ionized Calcium Urine WBC (Auto) Urine Creatinine Urine Total Protein Crossmatch 04/22/21 04/22/21 04/22/21 06:07 06:09 07:18 WBC RBC Hgb Hct MCH RDW Plt Count Seg Neuts % (Manual) Lymphocytes % (Manual) Nucleated RBC % Seg Neutrophils # Man Lymphocytes # (Manual) PT ABG pH POC ABG pCO2 POC ABG pO2 ABG pO2 ABG O2 Saturation ABG Base Excess ABG Hemoglobin ABG Oxyhemoglobin ABG Potassium ABG Chloride ABG Glucose Oxyhemoglobin Carboxyhemoglobin Sodium Potassium Chloride Carbon Dioxide BUN Creatinine Glucose POC Glucose 206 H 163 H 158 H Hemoglobin A1c Lactic Acid Calcium Phosphorus Magnesium Transferrin AST ALT Alkaline Phosphatase Total Creatine Kinase CK-MB (CK-2) Serum Total Protein Total Protein Albumin Qujmt-8-Bwlysppeu Ftddq-2-Vuktwfdha Gamma Globulins PEP Interpretation HDL Cholesterol TSH Arterial Blood Glucose Arterial Blood Ionized Calcium Urine WBC (Auto) Urine Creatinine Urine Total Protein Crossmatch 04/22/21 04/22/21 04/22/21 08:59 08:59 08:59 WBC RBC Hgb Hct MCH RDW Plt Count Seg Neuts % (Manual) Lymphocytes % (Manual) Nucleated RBC % Seg Neutrophils # Man Lymphocytes # (Manual) PT ABG pH POC ABG pCO2 POC ABG pO2 ABG pO2 ABG O2 Saturation ABG Base Excess ABG Hemoglobin ABG Oxyhemoglobin ABG Potassium ABG Chloride ABG Glucose Oxyhemoglobin Carboxyhemoglobin Sodium 169 H* Potassium 3.5 L Chloride 134.5 H Carbon Dioxide 20 L BUN 95 H Creatinine 3.6 H Glucose 151 H POC Glucose Hemoglobin A1c Lactic Acid Calcium Phosphorus Magnesium Transferrin AST 121 H ALT 75 H Alkaline Phosphatase 137 H Total Creatine Kinase 3105 H CK-MB (CK-2) Serum Total Protein 5.5 L Total Protein 6.0 L Albumin 2.8 L 2.1 L Hyktj-9-Hjnonzzgy 0.6 H Pyqxl-9-Kmnjimpxx 1.0 H Gamma Globulins 0.6 L PEP Interpretation see below H HDL Cholesterol TSH Arterial Blood Glucose Arterial Blood Ionized Calcium Urine WBC (Auto) Urine Creatinine Urine Total Protein Crossmatch 04/22/21 04/22/21 04/22/21 09:44 10:24 12:20 WBC RBC Hgb Hct MCH RDW Plt Count Seg Neuts % (Manual) Lymphocytes % (Manual) Nucleated RBC % Seg Neutrophils # Man Lymphocytes # (Manual) PT ABG pH POC ABG pCO2 POC ABG pO2 ABG pO2 ABG O2 Saturation ABG Base Excess ABG Hemoglobin ABG Oxyhemoglobin ABG Potassium ABG Chloride ABG Glucose Oxyhemoglobin Carboxyhemoglobin Sodium Potassium Chloride Carbon Dioxide BUN Creatinine Glucose POC Glucose 107 H 131 H Hemoglobin A1c Lactic Acid Calcium Phosphorus Magnesium 2.80 H Transferrin AST ALT Alkaline Phosphatase Total Creatine Kinase CK-MB (CK-2) Serum Total Protein Total Protein Albumin Gimps-0-Qayislmyo Eedhv-7-Xvfmwhdbn Gamma Globulins PEP Interpretation HDL Cholesterol TSH Arterial Blood Glucose Arterial Blood Ionized Calcium Urine WBC (Auto) Urine Creatinine Urine Total Protein Crossmatch 04/22/21 04/22/21 04/22/21 13:19 14:16 15:22 WBC RBC Hgb Hct MCH RDW Plt Count Seg Neuts % (Manual) Lymphocytes % (Manual) Nucleated RBC % Seg Neutrophils # Man Lymphocytes # (Manual) PT ABG pH POC ABG pCO2 POC ABG pO2 ABG pO2 ABG O2 Saturation ABG Base Excess ABG Hemoglobin ABG Oxyhemoglobin ABG Potassium ABG Chloride ABG Glucose Oxyhemoglobin Carboxyhemoglobin Sodium Potassium Chloride Carbon Dioxide BUN Creatinine Glucose POC Glucose 147 H 154 H 136 H Hemoglobin A1c Lactic Acid Calcium Phosphorus Magnesium Transferrin AST ALT Alkaline Phosphatase Total Creatine Kinase CK-MB (CK-2) Serum Total Protein Total Protein Albumin Gzcmz-6-Iujjdrpdp Xafvm-7-Wocydjtqm Gamma Globulins PEP Interpretation HDL Cholesterol TSH Arterial Blood Glucose Arterial Blood Ionized Calcium Urine WBC (Auto) Urine Creatinine Urine Total Protein Crossmatch 04/22/21 04/22/21 04/22/21 15:55 15:55 16:22 WBC RBC Hgb Hct MCH RDW Plt Count Seg Neuts % (Manual) Lymphocytes % (Manual) Nucleated RBC % Seg Neutrophils # Man Lymphocytes # (Manual) PT ABG pH POC ABG pCO2 POC ABG pO2 ABG pO2 ABG O2 Saturation ABG Base Excess ABG Hemoglobin ABG Oxyhemoglobin ABG Potassium ABG Chloride ABG Glucose Oxyhemoglobin Carboxyhemoglobin Sodium 169 H* Potassium Chloride 133.5 H Carbon Dioxide 19 L BUN 94 H Creatinine 3.8 H Glucose 150 H POC Glucose 140 H Hemoglobin A1c 17.1 H Lactic Acid Calcium Phosphorus Magnesium Transferrin AST ALT Alkaline Phosphatase Total Creatine Kinase CK-MB (CK-2) Serum Total Protein Total Protein Albumin Vsnmm-2-Nxpcnylea Ycyga-3-Uzzcagzlh Gamma Globulins PEP Interpretation HDL Cholesterol TSH Arterial Blood Glucose Arterial Blood Ionized Calcium Urine WBC (Auto) Urine Creatinine Urine Total Protein Crossmatch 04/22/21 04/22/21 04/22/21 18:11 18:26 23:19 WBC RBC Hgb Hct MCH RDW Plt Count Seg Neuts % (Manual) Lymphocytes % (Manual) Nucleated RBC % Seg Neutrophils # Man Lymphocytes # (Manual) PT ABG pH POC ABG pCO2 POC ABG pO2 ABG pO2 ABG O2 Saturation ABG Base Excess ABG Hemoglobin ABG Oxyhemoglobin ABG Potassium ABG Chloride ABG Glucose Oxyhemoglobin Carboxyhemoglobin Sodium Potassium Chloride Carbon Dioxide BUN Creatinine Glucose POC Glucose 146 H 188 H Hemoglobin A1c Lactic Acid Calcium Phosphorus Magnesium Transferrin AST ALT Alkaline Phosphatase Total Creatine Kinase 2497 H CK-MB (CK-2) Serum Total Protein Total Protein Albumin Hrpph-2-Qairvobim Xldra-3-Xkqlrychd Gamma Globulins PEP Interpretation HDL Cholesterol TSH Arterial Blood Glucose Arterial Blood Ionized Calcium Urine WBC (Auto) Urine Creatinine Urine Total Protein Crossmatch 04/23/21 04/23/21 04/23/21 00:27 05:23 07:50 WBC RBC Hgb Hct MCH RDW Plt Count Seg Neuts % (Manual) Lymphocytes % (Manual) Nucleated RBC % Seg Neutrophils # Man Lymphocytes # (Manual) PT ABG pH POC ABG pCO2 POC ABG pO2 ABG pO2 ABG O2 Saturation ABG Base Excess ABG Hemoglobin ABG Oxyhemoglobin ABG Potassium ABG Chloride ABG Glucose Oxyhemoglobin Carboxyhemoglobin Sodium 162 H* Potassium Chloride Carbon Dioxide BUN Creatinine Glucose POC Glucose 212 H 239 H Hemoglobin A1c Lactic Acid Calcium Phosphorus Magnesium Transferrin AST ALT Alkaline Phosphatase Total Creatine Kinase CK-MB (CK-2) Serum Total Protein Total Protein Albumin Tzbhp-6-Sisimmtjp Xgzbs-7-Yxshhdxxf Gamma Globulins PEP Interpretation HDL Cholesterol TSH Arterial Blood Glucose Arterial Blood Ionized Calcium Urine WBC (Auto) Urine Creatinine Urine Total Protein Crossmatch 04/23/21 04/23/21 04/23/21 08:13 08:13 08:13 WBC 11.9 H RBC Hgb Hct MCH 26 L RDW 16.5 H Plt Count 72 L Seg Neuts % (Manual) 80.0 H Lymphocytes % (Manual) 5.0 L Nucleated RBC % Seg Neutrophils # Man 9.5 H Lymphocytes # (Manual) 0.6 L PT ABG pH POC ABG pCO2 POC ABG pO2 ABG pO2 ABG O2 Saturation ABG Base Excess ABG Hemoglobin ABG Oxyhemoglobin ABG Potassium ABG Chloride ABG Glucose Oxyhemoglobin Carboxyhemoglobin Sodium 164 H* Potassium Chloride 128.0 H Carbon Dioxide 21 L BUN 93 H Creatinine 3.8 H Glucose 293 H POC Glucose Hemoglobin A1c Lactic Acid Calcium Phosphorus Magnesium Transferrin AST 99 H ALT 70 H Alkaline Phosphatase 147 H Total Creatine Kinase 1803 H CK-MB (CK-2) Serum Total Protein Total Protein 6.1 L Albumin 2.0 L Ocffv-9-Rnbbivoqf Ksrig-3-Dswajydzu Gamma Globulins PEP Interpretation HDL Cholesterol TSH Arterial Blood Glucose Arterial Blood Ionized Calcium Urine WBC (Auto) Urine Creatinine Urine Total Protein Crossmatch 04/23/21 04/23/21 04/23/21 12:06 17:35 18:17 WBC RBC Hgb Hct MCH RDW Plt Count Seg Neuts % (Manual) Lymphocytes % (Manual) Nucleated RBC % Seg Neutrophils # Man Lymphocytes # (Manual) PT ABG pH POC ABG pCO2 POC ABG pO2 ABG pO2 ABG O2 Saturation ABG Base Excess ABG Hemoglobin ABG Oxyhemoglobin ABG Potassium ABG Chloride ABG Glucose Oxyhemoglobin Carboxyhemoglobin Sodium 160 H Potassium Chloride Carbon Dioxide BUN Creatinine Glucose POC Glucose 311 H 370 H Hemoglobin A1c Lactic Acid Calcium Phosphorus Magnesium Transferrin AST ALT Alkaline Phosphatase Total Creatine Kinase CK-MB (CK-2) Serum Total Protein Total Protein Albumin Rzdvt-4-Pbfgxppis Ituma-1-Ulebwezux Gamma Globulins PEP Interpretation HDL Cholesterol TSH Arterial Blood Glucose Arterial Blood Ionized Calcium Urine WBC (Auto) Urine Creatinine Urine Total Protein Crossmatch 04/24/21 04/24/21 04/24/21 02:13 06:00 06:00 WBC RBC Hgb Hct MCH 27 L RDW 17.0 H Plt Count 58 L Seg Neuts % (Manual) Lymphocytes % (Manual) 2.0 L Nucleated RBC % Seg Neutrophils # Man 8.9 H Lymphocytes # (Manual) 0.2 L PT ABG pH POC ABG pCO2 POC ABG pO2 ABG pO2 ABG O2 Saturation ABG Base Excess ABG Hemoglobin ABG Oxyhemoglobin ABG Potassium ABG Chloride ABG Glucose Oxyhemoglobin Carboxyhemoglobin Sodium 160 H Potassium Chloride Carbon Dioxide BUN Creatinine Glucose POC Glucose Hemoglobin A1c Lactic Acid Calcium Phosphorus Magnesium 2.90 H Transferrin AST ALT Alkaline Phosphatase Total Creatine Kinase CK-MB (CK-2) Serum Total Protein Total Protein Albumin Mifzj-1-Irnkvjaer Ehlmm-3-Kzmpuyjsu Gamma Globulins PEP Interpretation HDL Cholesterol TSH Arterial Blood Glucose Arterial Blood Ionized Calcium Urine WBC (Auto) Urine Creatinine Urine Total Protein Crossmatch 04/24/21 04/24/21 04/24/21 07:46 08:15 11:34 WBC RBC Hgb Hct MCH RDW Plt Count Seg Neuts % (Manual) Lymphocytes % (Manual) Nucleated RBC % Seg Neutrophils # Man Lymphocytes # (Manual) PT ABG pH POC ABG pCO2 POC ABG pO2 ABG pO2 ABG O2 Saturation ABG Base Excess ABG Hemoglobin ABG Oxyhemoglobin ABG Potassium ABG Chloride ABG Glucose Oxyhemoglobin Carboxyhemoglobin Sodium 159 H Potassium Chloride 125.6 H Carbon Dioxide 19 L BUN 94 H Creatinine 3.7 H Glucose 514 H* POC Glucose 395 H 422 H Hemoglobin A1c Lactic Acid Calcium Phosphorus Magnesium Transferrin AST ALT 61 H Alkaline Phosphatase 155 H Total Creatine Kinase CK-MB (CK-2) Serum Total Protein Total Protein 6.1 L Albumin 1.5 L Vmabx-8-Tinumnnzj Oycdu-2-Znprjrcdq Gamma Globulins PEP Interpretation HDL Cholesterol TSH Arterial Blood Glucose Arterial Blood Ionized Calcium Urine WBC (Auto) Urine Creatinine Urine Total Protein Crossmatch 04/24/21 04/24/21 04/24/21 13:11 14:01 15:03 WBC RBC Hgb Hct MCH RDW Plt Count Seg Neuts % (Manual) Lymphocytes % (Manual) Nucleated RBC % Seg Neutrophils # Man Lymphocytes # (Manual) PT ABG pH POC ABG pCO2 POC ABG pO2 ABG pO2 ABG O2 Saturation ABG Base Excess ABG Hemoglobin ABG Oxyhemoglobin ABG Potassium ABG Chloride ABG Glucose Oxyhemoglobin Carboxyhemoglobin Sodium Potassium Chloride Carbon Dioxide BUN Creatinine Glucose POC Glucose 384 H 423 H 418 H Hemoglobin A1c Lactic Acid Calcium Phosphorus Magnesium Transferrin AST ALT Alkaline Phosphatase Total Creatine Kinase CK-MB (CK-2) Serum Total Protein Total Protein Albumin Onond-9-Ojyotudui Aifpv-7-Aqlqkiowl Gamma Globulins PEP Interpretation HDL Cholesterol TSH Arterial Blood Glucose Arterial Blood Ionized Calcium Urine WBC (Auto) Urine Creatinine Urine Total Protein Crossmatch 04/24/21 04/24/21 04/24/21 17:29 18:28 19:41 WBC RBC Hgb Hct MCH RDW Plt Count Seg Neuts % (Manual) Lymphocytes % (Manual) Nucleated RBC % Seg Neutrophils # Man Lymphocytes # (Manual) PT ABG pH POC ABG pCO2 POC ABG pO2 ABG pO2 ABG O2 Saturation ABG Base Excess ABG Hemoglobin ABG Oxyhemoglobin ABG Potassium ABG Chloride ABG Glucose Oxyhemoglobin Carboxyhemoglobin Sodium Potassium Chloride Carbon Dioxide BUN Creatinine Glucose POC Glucose 335 H 321 H Hemoglobin A1c Lactic Acid Calcium Phosphorus Magnesium Transferrin 112 L AST ALT Alkaline Phosphatase Total Creatine Kinase CK-MB (CK-2) Serum Total Protein Total Protein Albumin Bbgsk-1-Wcdbrwtfd Uaqik-5-Cbjbnwjrz Gamma Globulins PEP Interpretation HDL Cholesterol TSH Arterial Blood Glucose Arterial Blood Ionized Calcium Urine WBC (Auto) Urine Creatinine Urine Total Protein Crossmatch 04/24/21 04/25/21 04/25/21 22:33 01:28 02:28 WBC RBC Hgb Hct MCH RDW Plt Count Seg Neuts % (Manual) Lymphocytes % (Manual) Nucleated RBC % Seg Neutrophils # Man Lymphocytes # (Manual) PT ABG pH POC ABG pCO2 POC ABG pO2 ABG pO2 ABG O2 Saturation ABG Base Excess ABG Hemoglobin ABG Oxyhemoglobin ABG Potassium ABG Chloride ABG Glucose Oxyhemoglobin Carboxyhemoglobin Sodium Potassium Chloride Carbon Dioxide BUN Creatinine Glucose POC Glucose 349 H 283 H 247 H Hemoglobin A1c Lactic Acid Calcium Phosphorus Magnesium Transferrin AST ALT Alkaline Phosphatase Total Creatine Kinase CK-MB (CK-2) Serum Total Protein Total Protein Albumin Qggjn-0-Kqbfemwex Cxose-0-Pbzscuxxx Gamma Globulins PEP Interpretation HDL Cholesterol TSH Arterial Blood Glucose Arterial Blood Ionized Calcium Urine WBC (Auto) Urine Creatinine Urine Total Protein Crossmatch 04/25/21 04/25/21 04/25/21 03:25 04:22 05:40 WBC RBC Hgb Hct MCH RDW Plt Count Seg Neuts % (Manual) Lymphocytes % (Manual) Nucleated RBC % Seg Neutrophils # Man Lymphocytes # (Manual) PT ABG pH POC ABG pCO2 POC ABG pO2 ABG pO2 ABG O2 Saturation ABG Base Excess ABG Hemoglobin ABG Oxyhemoglobin ABG Potassium ABG Chloride ABG Glucose Oxyhemoglobin Carboxyhemoglobin Sodium Potassium Chloride Carbon Dioxide BUN Creatinine Glucose POC Glucose 196 H 207 H 204 H Hemoglobin A1c Lactic Acid Calcium Phosphorus Magnesium Transferrin AST ALT Alkaline Phosphatase Total Creatine Kinase CK-MB (CK-2) Serum Total Protein Total Protein Albumin Iztsq-3-Lzprkbxee Fyiub-0-Tlkcnyhov Gamma Globulins PEP Interpretation HDL Cholesterol TSH Arterial Blood Glucose Arterial Blood Ionized Calcium Urine WBC (Auto) Urine Creatinine Urine Total Protein Crossmatch 04/25/21 04/25/21 04/25/21 05:45 06:43 07:37 WBC RBC Hgb Hct MCH 27 L RDW 17.0 H Plt Count 64 L Seg Neuts % (Manual) 84.0 H Lymphocytes % (Manual) 6.0 L Nucleated RBC % 1.0 H Seg Neutrophils # Man Lymphocytes # (Manual) 0.4 L PT ABG pH POC ABG pCO2 POC ABG pO2 ABG pO2 ABG O2 Saturation ABG Base Excess ABG Hemoglobin ABG Oxyhemoglobin ABG Potassium ABG Chloride ABG Glucose Oxyhemoglobin Carboxyhemoglobin Sodium Potassium Chloride Carbon Dioxide BUN Creatinine Glucose POC Glucose 238 H 201 H Hemoglobin A1c Lactic Acid Calcium Phosphorus Magnesium Transferrin AST ALT Alkaline Phosphatase Total Creatine Kinase CK-MB (CK-2) Serum Total Protein Total Protein Albumin Cdwnx-7-Gzinndzef Edlri-0-Ejcjmmvmy Gamma Globulins PEP Interpretation HDL Cholesterol TSH Arterial Blood Glucose Arterial Blood Ionized Calcium Urine WBC (Auto) Urine Creatinine Urine Total Protein Crossmatch 04/25/21 04/25/21 04/25/21 08:11 08:11 08:41 WBC RBC Hgb Hct MCH RDW Plt Count Seg Neuts % (Manual) Lymphocytes % (Manual) Nucleated RBC % Seg Neutrophils # Man Lymphocytes # (Manual) PT ABG pH POC ABG pCO2 POC ABG pO2 ABG pO2 ABG O2 Saturation ABG Base Excess ABG Hemoglobin ABG Oxyhemoglobin ABG Potassium ABG Chloride ABG Glucose Oxyhemoglobin Carboxyhemoglobin Sodium 148 H D Potassium Chloride 115.7 H Carbon Dioxide 21 L BUN 83 H Creatinine 3.6 H Glucose 247 H POC Glucose 220 H Hemoglobin A1c Lactic Acid Calcium Phosphorus Magnesium 2.50 H Transferrin AST 63 H ALT 62 H Alkaline Phosphatase 143 H Total Creatine Kinase CK-MB (CK-2) Serum Total Protein Total Protein 5.4 L Albumin 1.4 L Ghbcj-5-Vaydxfvdy Qbrgm-7-Vxzedeirx Gamma Globulins PEP Interpretation HDL Cholesterol TSH Arterial Blood Glucose Arterial Blood Ionized Calcium Urine WBC (Auto) Urine Creatinine Urine Total Protein Crossmatch 04/25/21 04/25/21 04/25/21 09:22 10:31 11:44 WBC RBC Hgb Hct MCH RDW Plt Count Seg Neuts % (Manual) Lymphocytes % (Manual) Nucleated RBC % Seg Neutrophils # Man Lymphocytes # (Manual) PT ABG pH POC ABG pCO2 POC ABG pO2 ABG pO2 ABG O2 Saturation ABG Base Excess ABG Hemoglobin ABG Oxyhemoglobin ABG Potassium ABG Chloride ABG Glucose Oxyhemoglobin Carboxyhemoglobin Sodium Potassium Chloride Carbon Dioxide BUN Creatinine Glucose POC Glucose 228 H 215 H 191 H Hemoglobin A1c Lactic Acid Calcium Phosphorus Magnesium Transferrin AST ALT Alkaline Phosphatase Total Creatine Kinase CK-MB (CK-2) Serum Total Protein Total Protein Albumin Umnob-1-Yehvnuyyd Cqkwb-7-Msbqqkkci Gamma Globulins PEP Interpretation HDL Cholesterol TSH Arterial Blood Glucose Arterial Blood Ionized Calcium Urine WBC (Auto) Urine Creatinine Urine Total Protein Crossmatch 04/25/21 04/25/21 04/25/21 12:23 13:48 14:11 WBC RBC Hgb Hct MCH RDW Plt Count Seg Neuts % (Manual) Lymphocytes % (Manual) Nucleated RBC % Seg Neutrophils # Man Lymphocytes # (Manual) PT ABG pH POC ABG pCO2 POC ABG pO2 ABG pO2 ABG O2 Saturation ABG Base Excess ABG Hemoglobin ABG Oxyhemoglobin ABG Potassium ABG Chloride ABG Glucose Oxyhemoglobin Carboxyhemoglobin Sodium Potassium Chloride Carbon Dioxide BUN Creatinine Glucose POC Glucose 229 H 177 H 161 H Hemoglobin A1c Lactic Acid Calcium Phosphorus Magnesium Transferrin AST ALT Alkaline Phosphatase Total Creatine Kinase CK-MB (CK-2) Serum Total Protein Total Protein Albumin Nvyjd-2-Vytfwmwlj Ltkcr-9-Rcjsrnkal Gamma Globulins PEP Interpretation HDL Cholesterol TSH Arterial Blood Glucose Arterial Blood Ionized Calcium Urine WBC (Auto) Urine Creatinine Urine Total Protein Crossmatch 04/25/21 04/25/21 04/26/21 18:01 21:31 01:19 WBC RBC Hgb Hct MCH RDW Plt Count Seg Neuts % (Manual) Lymphocytes % (Manual) Nucleated RBC % Seg Neutrophils # Man Lymphocytes # (Manual) PT ABG pH POC ABG pCO2 POC ABG pO2 ABG pO2 ABG O2 Saturation ABG Base Excess ABG Hemoglobin ABG Oxyhemoglobin ABG Potassium ABG Chloride ABG Glucose Oxyhemoglobin Carboxyhemoglobin Sodium Potassium Chloride Carbon Dioxide BUN Creatinine Glucose POC Glucose 264 H 371 H 356 H Hemoglobin A1c Lactic Acid Calcium Phosphorus Magnesium Transferrin AST ALT Alkaline Phosphatase Total Creatine Kinase CK-MB (CK-2) Serum Total Protein Total Protein Albumin Wndzt-6-Vtrkrlzdt Ggpow-9-Lenneqyux Gamma Globulins PEP Interpretation HDL Cholesterol TSH Arterial Blood Glucose Arterial Blood Ionized Calcium Urine WBC (Auto) Urine Creatinine Urine Total Protein Crossmatch 04/26/21 04/26/21 04/26/21 06:31 09:13 09:33 WBC RBC Hgb Hct MCH 27 L RDW 16.9 H Plt Count 58 L Seg Neuts % (Manual) 77.0 H Lymphocytes % (Manual) 4.0 L Nucleated RBC % 2.0 H Seg Neutrophils # Man Lymphocytes # (Manual) 0.3 L PT ABG pH POC ABG pCO2 POC ABG pO2 ABG pO2 ABG O2 Saturation ABG Base Excess ABG Hemoglobin ABG Oxyhemoglobin ABG Potassium ABG Chloride ABG Glucose Oxyhemoglobin Carboxyhemoglobin Sodium Potassium Chloride Carbon Dioxide BUN Creatinine Glucose POC Glucose 428 H 454 H Hemoglobin A1c Lactic Acid Calcium Phosphorus Magnesium Transferrin AST ALT Alkaline Phosphatase Total Creatine Kinase CK-MB (CK-2) Serum Total Protein Total Protein Albumin Tafvj-0-Cjxwnaxpb Gsvqb-3-Gwtqyyclo Gamma Globulins PEP Interpretation HDL Cholesterol TSH Arterial Blood Glucose Arterial Blood Ionized Calcium Urine WBC (Auto) Urine Creatinine Urine Total Protein Crossmatch 04/26/21 04/26/21 04/26/21 09:33 09:33 11:00 WBC RBC Hgb Hct MCH RDW Plt Count Seg Neuts % (Manual) Lymphocytes % (Manual) Nucleated RBC % Seg Neutrophils # Man Lymphocytes # (Manual) PT ABG pH 7.281 L POC ABG pCO2 POC ABG pO2 66.4 L ABG pO2 ABG O2 Saturation ABG Base Excess ABG Hemoglobin 10.9 L ABG Oxyhemoglobin 91 L ABG Potassium ABG Chloride ABG Glucose 521 H Oxyhemoglobin Carboxyhemoglobin Sodium Potassium Chloride Carbon Dioxide 19 L BUN 98 H Creatinine 3.8 H Glucose 530 H* POC Glucose Hemoglobin A1c Lactic Acid Calcium 8.1 L Phosphorus 5.60 H D Magnesium Transferrin AST 60 H ALT 72 H Alkaline Phosphatase 168 H Total Creatine Kinase CK-MB (CK-2) Serum Total Protein Total Protein 4.6 L Albumin 1.7 L Rrbwd-8-Onojxjdha Vgjfs-9-Ratpdlykc Gamma Globulins PEP Interpretation HDL Cholesterol TSH Arterial Blood Glucose 521 H Arterial Blood Ionized Calcium Urine WBC (Auto) Urine Creatinine Urine Total Protein Crossmatch 04/26/21 04/26/21 04/26/21 12:36 15:39 16:18 WBC RBC Hgb Hct MCH RDW Plt Count Seg Neuts % (Manual) Lymphocytes % (Manual) Nucleated RBC % Seg Neutrophils # Man Lymphocytes # (Manual) PT ABG pH 7.275 L POC ABG pCO2 POC ABG pO2 63.4 L ABG pO2 ABG O2 Saturation ABG Base Excess ABG Hemoglobin 8.4 L ABG Oxyhemoglobin 89.5 L ABG Potassium ABG Chloride 108.0 H ABG Glucose 404 H Oxyhemoglobin Carboxyhemoglobin Sodium Potassium Chloride Carbon Dioxide BUN Creatinine Glucose POC Glucose 414 H 324 H Hemoglobin A1c Lactic Acid Calcium Phosphorus Magnesium Transferrin AST ALT Alkaline Phosphatase Total Creatine Kinase CK-MB (CK-2) Serum Total Protein Total Protein Albumin Ztmde-2-Rxtsjjbjh Ubwcc-7-Esxbfyziz Gamma Globulins PEP Interpretation HDL Cholesterol TSH Arterial Blood Glucose 404 H Arterial Blood Ionized Calcium Urine WBC (Auto) Urine Creatinine Urine Total Protein Crossmatch 04/26/21 04/27/21 04/27/21 21:14 00:07 05:47 WBC RBC Hgb Hct MCH RDW Plt Count Seg Neuts % (Manual) Lymphocytes % (Manual) Nucleated RBC % Seg Neutrophils # Man Lymphocytes # (Manual) PT ABG pH POC ABG pCO2 POC ABG pO2 ABG pO2 ABG O2 Saturation ABG Base Excess ABG Hemoglobin ABG Oxyhemoglobin ABG Potassium ABG Chloride ABG Glucose Oxyhemoglobin Carboxyhemoglobin Sodium Potassium Chloride Carbon Dioxide BUN Creatinine Glucose POC Glucose 242 H 282 H 214 H Hemoglobin A1c Lactic Acid Calcium Phosphorus Magnesium Transferrin AST ALT Alkaline Phosphatase Total Creatine Kinase CK-MB (CK-2) Serum Total Protein Total Protein Albumin Knvsg-4-Vkoxzzfpj Pbbeq-1-Fshrhiorm Gamma Globulins PEP Interpretation HDL Cholesterol TSH Arterial Blood Glucose Arterial Blood Ionized Calcium Urine WBC (Auto) Urine Creatinine Urine Total Protein Crossmatch 04/27/21 04/27/21 04/27/21 06:23 07:43 08:30 WBC RBC Hgb Hct MCH RDW Plt Count Seg Neuts % (Manual) Lymphocytes % (Manual) Nucleated RBC % Seg Neutrophils # Man Lymphocytes # (Manual) PT ABG pH 7.309 L POC ABG pCO2 POC ABG pO2 70.6 L ABG pO2 ABG O2 Saturation ABG Base Excess ABG Hemoglobin 9.16 L ABG Oxyhemoglobin 92.4 L ABG Potassium ABG Chloride ABG Glucose Oxyhemoglobin Carboxyhemoglobin Sodium Potassium Chloride 110.1 H Carbon Dioxide 15 L BUN 109 H Creatinine 4.3 H Glucose 218 H POC Glucose 187 H Hemoglobin A1c Lactic Acid Calcium Phosphorus Magnesium Transferrin AST 53 H ALT Alkaline Phosphatase 148 H Total Creatine Kinase 1000 H CK-MB (CK-2) Serum Total Protein Total Protein 5.2 L Albumin 1.2 L Vffet-5-Lvnjkrfhg Fpxwe-0-Dgflnpcbr Gamma Globulins PEP Interpretation HDL Cholesterol TSH Arterial Blood Glucose Arterial Blood Ionized Calcium Urine WBC (Auto) Urine Creatinine Urine Total Protein Crossmatch 04/27/21 04/27/21 04/27/21 11:54 21:08 23:28 WBC RBC Hgb Hct MCH RDW Plt Count Seg Neuts % (Manual) Lymphocytes % (Manual) Nucleated RBC % Seg Neutrophils # Man Lymphocytes # (Manual) PT ABG pH POC ABG pCO2 POC ABG pO2 ABG pO2 ABG O2 Saturation ABG Base Excess ABG Hemoglobin ABG Oxyhemoglobin ABG Potassium ABG Chloride ABG Glucose Oxyhemoglobin Carboxyhemoglobin Sodium Potassium Chloride Carbon Dioxide BUN Creatinine Glucose POC Glucose 147 H 136 H 201 H Hemoglobin A1c Lactic Acid Calcium Phosphorus Magnesium Transferrin AST ALT Alkaline Phosphatase Total Creatine Kinase CK-MB (CK-2) Serum Total Protein Total Protein Albumin Jtjyz-4-Xvtwdtsjf Qefyg-7-Wotcphwch Gamma Globulins PEP Interpretation HDL Cholesterol TSH Arterial Blood Glucose Arterial Blood Ionized Calcium Urine WBC (Auto) Urine Creatinine Urine Total Protein Crossmatch 04/28/21 04/28/21 04/28/21 04:00 04:00 05:00 WBC 12.6 H RBC 3.59 L Hgb 9.4 L Hct MCH 26 L RDW 16.6 H Plt Count 111 L Seg Neuts % (Manual) Lymphocytes % (Manual) 1.0 L Nucleated RBC % 4.0 H Seg Neutrophils # Man 11.6 H Lymphocytes # (Manual) 0.1 L PT 15.3 H ABG pH POC ABG pCO2 POC ABG pO2 ABG pO2 ABG O2 Saturation ABG Base Excess ABG Hemoglobin ABG Oxyhemoglobin ABG Potassium ABG Chloride ABG Glucose Oxyhemoglobin Carboxyhemoglobin Sodium 147 H Potassium 3.5 L D Chloride Carbon Dioxide BUN 79 H Creatinine 3.8 H Glucose 194 H POC Glucose Hemoglobin A1c Lactic Acid Calcium 8.1 L Phosphorus Magnesium Transferrin AST ALT Alkaline Phosphatase Total Creatine Kinase CK-MB (CK-2) Serum Total Protein Total Protein Albumin Ikbpo-9-Jyiptsbwm Stpbx-9-Fqbuzyoqf Gamma Globulins PEP Interpretation HDL Cholesterol TSH Arterial Blood Glucose Arterial Blood Ionized Calcium Urine WBC (Auto) Urine Creatinine Urine Total Protein Crossmatch 04/28/21 04/28/21 04/28/21 05:08 05:18 11:04 WBC RBC Hgb Hct MCH RDW Plt Count Seg Neuts % (Manual) Lymphocytes % (Manual) Nucleated RBC % Seg Neutrophils # Man Lymphocytes # (Manual) PT ABG pH POC ABG pCO2 POC ABG pO2 66.5 L ABG pO2 ABG O2 Saturation ABG Base Excess ABG Hemoglobin 9.7 L ABG Oxyhemoglobin 92.5 L ABG Potassium 3.2 L ABG Chloride ABG Glucose 200 H Oxyhemoglobin Carboxyhemoglobin Sodium Potassium Chloride Carbon Dioxide BUN Creatinine Glucose POC Glucose 183 H 174 H Hemoglobin A1c Lactic Acid Calcium Phosphorus Magnesium Transferrin AST ALT Alkaline Phosphatase Total Creatine Kinase CK-MB (CK-2) Serum Total Protein Total Protein Albumin Quapw-2-Ptlhbuiyu Fkxbc-3-Hxhouqalv Gamma Globulins PEP Interpretation HDL Cholesterol TSH Arterial Blood Glucose 200 H Arterial Blood Ionized Calcium 4.5 L Urine WBC (Auto) Urine Creatinine Urine Total Protein Crossmatch 04/28/21 04/28/21 04/28/21 17:16 21:14 23:41 WBC RBC Hgb Hct MCH RDW Plt Count Seg Neuts % (Manual) Lymphocytes % (Manual) Nucleated RBC % Seg Neutrophils # Man Lymphocytes # (Manual) PT ABG pH POC ABG pCO2 POC ABG pO2 ABG pO2 ABG O2 Saturation ABG Base Excess ABG Hemoglobin ABG Oxyhemoglobin ABG Potassium ABG Chloride ABG Glucose Oxyhemoglobin Carboxyhemoglobin Sodium Potassium Chloride Carbon Dioxide BUN Creatinine Glucose POC Glucose 135 H 134 H 171 H Hemoglobin A1c Lactic Acid Calcium Phosphorus Magnesium Transferrin AST ALT Alkaline Phosphatase Total Creatine Kinase CK-MB (CK-2) Serum Total Protein Total Protein Albumin Albte-4-Kixlomgqi Axgag-5-Rqegkvpce Gamma Globulins PEP Interpretation HDL Cholesterol TSH Arterial Blood Glucose Arterial Blood Ionized Calcium Urine WBC (Auto) Urine Creatinine Urine Total Protein Crossmatch 04/29/21 04/29/21 04/29/21 01:16 04:00 04:00 WBC 13.3 H RBC 3.12 L Hgb 8.3 L Hct 26.2 L MCH 27 L RDW 16.3 H Plt Count 132 L Seg Neuts % (Manual) Lymphocytes % (Manual) Nucleated RBC % Seg Neutrophils # Man Lymphocytes # (Manual) PT ABG pH POC ABG pCO2 POC ABG pO2 ABG pO2 ABG O2 Saturation ABG Base Excess ABG Hemoglobin ABG Oxyhemoglobin ABG Potassium ABG Chloride ABG Glucose Oxyhemoglobin Carboxyhemoglobin Sodium Potassium Chloride Carbon Dioxide BUN 63 H Creatinine 3.4 H Glucose 249 H POC Glucose 236 H Hemoglobin A1c Lactic Acid Calcium 8.2 L Phosphorus Magnesium Transferrin AST 61 H ALT 71 H Alkaline Phosphatase 170 H Total Creatine Kinase CK-MB (CK-2) Serum Total Protein Total Protein 5.1 L Albumin 1.6 L Swuew-0-Wtavlufnt Cadvm-7-Btlvhvhod Gamma Globulins PEP Interpretation HDL Cholesterol TSH Arterial Blood Glucose Arterial Blood Ionized Calcium Urine WBC (Auto) Urine Creatinine Urine Total Protein Crossmatch 04/29/21 04/29/21 04/29/21 11:35 13:30 16:01 WBC RBC Hgb Hct MCH RDW Plt Count Seg Neuts % (Manual) Lymphocytes % (Manual) Nucleated RBC % Seg Neutrophils # Man Lymphocytes # (Manual) PT ABG pH POC ABG pCO2 POC ABG pO2 ABG pO2 ABG O2 Saturation ABG Base Excess ABG Hemoglobin ABG Oxyhemoglobin ABG Potassium ABG Chloride ABG Glucose Oxyhemoglobin Carboxyhemoglobin Sodium Potassium Chloride Carbon Dioxide BUN Creatinine Glucose POC Glucose 320 H 297 H Hemoglobin A1c Lactic Acid Calcium Phosphorus Magnesium Transferrin AST ALT Alkaline Phosphatase Total Creatine Kinase CK-MB (CK-2) Serum Total Protein Total Protein Albumin Hrfru-4-Khohooerq Zezfm-6-Yxbiodmtn Gamma Globulins PEP Interpretation HDL Cholesterol TSH Arterial Blood Glucose Arterial Blood Ionized Calcium Urine WBC (Auto) > 182.0 H Urine Creatinine Urine Total Protein Crossmatch 04/29/21 04/29/21 04/30/21 21:58 23:35 04:00 WBC 11.4 H RBC 3.27 L Hgb 8.7 L Hct 27.5 L MCH 27 L RDW 16.6 H Plt Count Seg Neuts % (Manual) Lymphocytes % (Manual) Nucleated RBC % Seg Neutrophils # Man Lymphocytes # (Manual) PT ABG pH POC ABG pCO2 POC ABG pO2 ABG pO2 ABG O2 Saturation ABG Base Excess ABG Hemoglobin ABG Oxyhemoglobin ABG Potassium ABG Chloride ABG Glucose Oxyhemoglobin Carboxyhemoglobin Sodium Potassium Chloride Carbon Dioxide BUN Creatinine Glucose POC Glucose 260 H 254 H Hemoglobin A1c Lactic Acid Calcium Phosphorus Magnesium Transferrin AST ALT Alkaline Phosphatase Total Creatine Kinase CK-MB (CK-2) Serum Total Protein Total Protein Albumin Nmods-6-Qylxwuwme Angnb-0-Tulwkjazm Gamma Globulins PEP Interpretation HDL Cholesterol TSH Arterial Blood Glucose Arterial Blood Ionized Calcium Urine WBC (Auto) Urine Creatinine Urine Total Protein Crossmatch 04/30/21 04/30/21 04/30/21 04:00 05:17 05:31 WBC RBC Hgb Hct MCH RDW Plt Count Seg Neuts % (Manual) Lymphocytes % (Manual) Nucleated RBC % Seg Neutrophils # Man Lymphocytes # (Manual) PT ABG pH 7.452 H POC ABG pCO2 30.5 L POC ABG pO2 54.5 L ABG pO2 ABG O2 Saturation ABG Base Excess ABG Hemoglobin 10.1 L ABG Oxyhemoglobin 87.4 L ABG Potassium 2.9 L ABG Chloride ABG Glucose 305 H Oxyhemoglobin Carboxyhemoglobin Sodium Potassium 3.1 L Chloride Carbon Dioxide BUN 79 H Creatinine 3.9 H Glucose 275 H POC Glucose 267 H Hemoglobin A1c Lactic Acid Calcium Phosphorus 5.60 H D Magnesium Transferrin AST ALT Alkaline Phosphatase Total Creatine Kinase CK-MB (CK-2) Serum Total Protein Total Protein Albumin Liqtl-8-Rdbzgqgng Fucxz-3-Hnqqhniuz Gamma Globulins PEP Interpretation HDL Cholesterol TSH Arterial Blood Glucose 305 H Arterial Blood Ionized Calcium Urine WBC (Auto) Urine Creatinine Urine Total Protein Crossmatch 04/30/21 04/30/21 04/30/21 12:31 17:50 22:24 WBC RBC Hgb Hct MCH RDW Plt Count Seg Neuts % (Manual) Lymphocytes % (Manual) Nucleated RBC % Seg Neutrophils # Man Lymphocytes # (Manual) PT ABG pH POC ABG pCO2 POC ABG pO2 ABG pO2 ABG O2 Saturation ABG Base Excess ABG Hemoglobin ABG Oxyhemoglobin ABG Potassium ABG Chloride ABG Glucose Oxyhemoglobin Carboxyhemoglobin Sodium Potassium Chloride Carbon Dioxide BUN Creatinine Glucose POC Glucose 259 H 161 H 146 H Hemoglobin A1c Lactic Acid Calcium Phosphorus Magnesium Transferrin AST ALT Alkaline Phosphatase Total Creatine Kinase CK-MB (CK-2) Serum Total Protein Total Protein Albumin Xzpjv-6-Jshjcvlim Cjwqw-7-Uylmcwrgg Gamma Globulins PEP Interpretation HDL Cholesterol TSH Arterial Blood Glucose Arterial Blood Ionized Calcium Urine WBC (Auto) Urine Creatinine Urine Total Protein Crossmatch 05/01/21 05/01/21 05/01/21 00:09 03:30 04:00 WBC 12.0 H RBC 3.08 L Hgb 8.1 L Hct 25.6 L MCH 26 L RDW 16.3 H Plt Count Seg Neuts % (Manual) Lymphocytes % (Manual) Nucleated RBC % Seg Neutrophils # Man Lymphocytes # (Manual) PT ABG pH 7.493 H POC ABG pCO2 POC ABG pO2 ABG pO2 ABG O2 Saturation ABG Base Excess ABG Hemoglobin 9.3 L ABG Oxyhemoglobin ABG Potassium ABG Chloride ABG Glucose 167 H Oxyhemoglobin Carboxyhemoglobin 0.4 L Sodium Potassium Chloride Carbon Dioxide BUN Creatinine Glucose POC Glucose 149 H Hemoglobin A1c Lactic Acid Calcium Phosphorus Magnesium Transferrin AST ALT Alkaline Phosphatase Total Creatine Kinase CK-MB (CK-2) Serum Total Protein Total Protein Albumin Dsihc-6-Vlbajndrs Xpems-1-Adjfoljbn Gamma Globulins PEP Interpretation HDL Cholesterol TSH Arterial Blood Glucose 167 H Arterial Blood Ionized Calcium Urine WBC (Auto) Urine Creatinine Urine Total Protein Crossmatch 05/01/21 05/01/21 05/01/21 04:00 05:48 11:49 WBC RBC Hgb Hct MCH RDW Plt Count Seg Neuts % (Manual) Lymphocytes % (Manual) Nucleated RBC % Seg Neutrophils # Man Lymphocytes # (Manual) PT ABG pH POC ABG pCO2 POC ABG pO2 ABG pO2 ABG O2 Saturation ABG Base Excess ABG Hemoglobin ABG Oxyhemoglobin ABG Potassium ABG Chloride ABG Glucose Oxyhemoglobin Carboxyhemoglobin Sodium Potassium 3.5 L Chloride Carbon Dioxide BUN 62 H Creatinine 3.3 H Glucose 179 H POC Glucose 197 H 167 H Hemoglobin A1c Lactic Acid Calcium 8.3 L Phosphorus Magnesium Transferrin AST ALT Alkaline Phosphatase Total Creatine Kinase CK-MB (CK-2) Serum Total Protein Total Protein Albumin Kozbo-6-Yndnhmdsd Ltyqs-7-Lgssywpty Gamma Globulins PEP Interpretation HDL Cholesterol TSH Arterial Blood Glucose Arterial Blood Ionized Calcium Urine WBC (Auto) Urine Creatinine Urine Total Protein Crossmatch 05/01/21 05/01/21 05/02/21 16:24 23:25 04:00 WBC 14.2 H RBC 2.61 L Hgb 6.9 L Hct 22.1 L MCH 27 L RDW 16.1 H Plt Count Seg Neuts % (Manual) Lymphocytes % (Manual) Nucleated RBC % Seg Neutrophils # Man Lymphocytes # (Manual) PT ABG pH POC ABG pCO2 POC ABG pO2 ABG pO2 ABG O2 Saturation ABG Base Excess ABG Hemoglobin ABG Oxyhemoglobin ABG Potassium ABG Chloride ABG Glucose Oxyhemoglobin Carboxyhemoglobin Sodium Potassium Chloride Carbon Dioxide BUN Creatinine Glucose POC Glucose 157 H 147 H Hemoglobin A1c Lactic Acid Calcium Phosphorus Magnesium Transferrin AST ALT Alkaline Phosphatase Total Creatine Kinase CK-MB (CK-2) Serum Total Protein Total Protein Albumin Spxzv-9-Ymoyisryo Ejtme-8-Pleczwqhj Gamma Globulins PEP Interpretation HDL Cholesterol TSH Arterial Blood Glucose Arterial Blood Ionized Calcium Urine WBC (Auto) Urine Creatinine Urine Total Protein Crossmatch 05/02/21 05/02/21 05/02/21 04:00 04:34 05:23 WBC RBC Hgb Hct MCH RDW Plt Count Seg Neuts % (Manual) Lymphocytes % (Manual) Nucleated RBC % Seg Neutrophils # Man Lymphocytes # (Manual) PT ABG pH 7.487 H POC ABG pCO2 POC ABG pO2 78.6 L ABG pO2 ABG O2 Saturation ABG Base Excess ABG Hemoglobin 11.5 L ABG Oxyhemoglobin ABG Potassium ABG Chloride ABG Glucose 122 H Oxyhemoglobin Carboxyhemoglobin Sodium Potassium Chloride Carbon Dioxide BUN 49 H Creatinine 2.8 H Glucose 117 H POC Glucose 119 H Hemoglobin A1c Lactic Acid Calcium Phosphorus Magnesium Transferrin AST ALT Alkaline Phosphatase Total Creatine Kinase CK-MB (CK-2) Serum Total Protein Total Protein Albumin Eoquz-2-Bfrkvpuzb Ccboj-7-Jxabizqmw Gamma Globulins PEP Interpretation HDL Cholesterol TSH Arterial Blood Glucose 122 H Arterial Blood Ionized Calcium Urine WBC (Auto) Urine Creatinine Urine Total Protein Crossmatch 05/02/21 05/02/21 05/02/21 12:00 12:04 17:29 WBC RBC Hgb Hct MCH RDW Plt Count Seg Neuts % (Manual) Lymphocytes % (Manual) Nucleated RBC % Seg Neutrophils # Man Lymphocytes # (Manual) PT ABG pH POC ABG pCO2 POC ABG pO2 ABG pO2 ABG O2 Saturation ABG Base Excess ABG Hemoglobin ABG Oxyhemoglobin ABG Potassium ABG Chloride ABG Glucose Oxyhemoglobin Carboxyhemoglobin Sodium Potassium Chloride Carbon Dioxide BUN Creatinine Glucose POC Glucose 115 H 120 H Hemoglobin A1c Lactic Acid Calcium Phosphorus Magnesium Transferrin AST ALT Alkaline Phosphatase Total Creatine Kinase CK-MB (CK-2) Serum Total Protein Total Protein Albumin Irjam-7-Aolndmrgb Lwaxr-3-Vjczhdmbe Gamma Globulins PEP Interpretation HDL Cholesterol TSH Arterial Blood Glucose Arterial Blood Ionized Calcium Urine WBC (Auto) Urine Creatinine Urine Total Protein Crossmatch See Detail 05/02/21 05/03/21 05/03/21 23:36 04:00 04:00 WBC 13.9 H RBC 3.22 L Hgb 8.7 L Hct 27.4 L MCH 27 L RDW 15.8 H Plt Count Seg Neuts % (Manual) Lymphocytes % (Manual) Nucleated RBC % Seg Neutrophils # Man Lymphocytes # (Manual) PT ABG pH POC ABG pCO2 POC ABG pO2 ABG pO2 ABG O2 Saturation ABG Base Excess ABG Hemoglobin ABG Oxyhemoglobin ABG Potassium ABG Chloride ABG Glucose Oxyhemoglobin Carboxyhemoglobin Sodium 146 H Potassium 3.5 L Chloride 107.5 H Carbon Dioxide BUN 40 H Creatinine 2.5 H Glucose 104 H POC Glucose 130 H Hemoglobin A1c Lactic Acid Calcium Phosphorus Magnesium Transferrin AST 53 H ALT Alkaline Phosphatase 149 H Total Creatine Kinase CK-MB (CK-2) Serum Total Protein Total Protein 5.2 L Albumin 1.5 L Ucepg-1-Zppghettd Qndlz-3-Zxfbekyqe Gamma Globulins PEP Interpretation HDL Cholesterol TSH Arterial Blood Glucose Arterial Blood Ionized Calcium Urine WBC (Auto) Urine Creatinine Urine Total Protein Crossmatch 0105/04/21 05/04/21 17:26 01:24 04:48 WBC 14.3 H RBC 3.14 L Hgb 8.5 L Hct 26.3 L MCH 27 L RDW 15.8 H Plt Count Seg Neuts % (Manual) Lymphocytes % (Manual) Nucleated RBC % Seg Neutrophils # Man Lymphocytes # (Manual) PT ABG pH POC ABG pCO2 POC ABG pO2 ABG pO2 ABG O2 Saturation ABG Base Excess ABG Hemoglobin ABG Oxyhemoglobin ABG Potassium ABG Chloride ABG Glucose Oxyhemoglobin Carboxyhemoglobin Sodium Potassium Chloride Carbon Dioxide BUN Creatinine Glucose POC Glucose 123 H 146 H Hemoglobin A1c Lactic Acid Calcium Phosphorus Magnesium Transferrin AST ALT Alkaline Phosphatase Total Creatine Kinase CK-MB (CK-2) Serum Total Protein Total Protein Albumin Zebqo-2-Hltckwoze Wyllm-0-Xhvfcctml Gamma Globulins PEP Interpretation HDL Cholesterol TSH Arterial Blood Glucose Arterial Blood Ionized Calcium Urine WBC (Auto) Urine Creatinine Urine Total Protein Crossmatch 05/04/21 05/04/21 05/04/21 04:48 05:15 11:24 WBC RBC Hgb Hct MCH RDW Plt Count Seg Neuts % (Manual) Lymphocytes % (Manual) Nucleated RBC % Seg Neutrophils # Man Lymphocytes # (Manual) PT ABG pH POC ABG pCO2 POC ABG pO2 ABG pO2 ABG O2 Saturation ABG Base Excess ABG Hemoglobin ABG Oxyhemoglobin ABG Potassium ABG Chloride ABG Glucose Oxyhemoglobin Carboxyhemoglobin Sodium Potassium 3.5 L Chloride Carbon Dioxide BUN 58 H Creatinine 3.4 H Glucose 168 H POC Glucose 162 H 145 H Hemoglobin A1c Lactic Acid Calcium Phosphorus 5.30 H Magnesium Transferrin AST ALT Alkaline Phosphatase Total Creatine Kinase CK-MB (CK-2) Serum Total Protein Total Protein Albumin Rsfox-2-Ybiqaehzl Gqmlg-9-Nhlzmfsgv Gamma Globulins PEP Interpretation HDL Cholesterol 24 L TSH Arterial Blood Glucose Arterial Blood Ionized Calcium Urine WBC (Auto) Urine Creatinine Urine Total Protein Crossmatch 05/04/21 05/04/21 05/05/21 16:01 23:32 04:00 WBC RBC Hgb Hct MCH RDW Plt Count Seg Neuts % (Manual) Lymphocytes % (Manual) Nucleated RBC % Seg Neutrophils # Man Lymphocytes # (Manual) PT ABG pH POC ABG pCO2 POC ABG pO2 ABG pO2 ABG O2 Saturation ABG Base Excess ABG Hemoglobin ABG Oxyhemoglobin ABG Potassium ABG Chloride ABG Glucose Oxyhemoglobin Carboxyhemoglobin Sodium Potassium 3.4 L Chloride Carbon Dioxide BUN 43 H Creatinine 2.7 H Glucose 124 H POC Glucose 148 H 134 H Hemoglobin A1c Lactic Acid Calcium 8.2 L Phosphorus Magnesium Transferrin AST ALT Alkaline Phosphatase Total Creatine Kinase CK-MB (CK-2) Serum Total Protein Total Protein Albumin Eftwv-3-Sqthrwiyw Nbked-2-Zbkfyiaiu Gamma Globulins PEP Interpretation HDL Cholesterol TSH Arterial Blood Glucose Arterial Blood Ionized Calcium Urine WBC (Auto) Urine Creatinine Urine Total Protein Crossmatch 05/05/21 05/06/21 05/06/21 05:14 00:01 04:00 WBC RBC Hgb Hct MCH RDW Plt Count Seg Neuts % (Manual) Lymphocytes % (Manual) Nucleated RBC % Seg Neutrophils # Man Lymphocytes # (Manual) PT ABG pH POC ABG pCO2 POC ABG pO2 ABG pO2 ABG O2 Saturation ABG Base Excess ABG Hemoglobin ABG Oxyhemoglobin ABG Potassium ABG Chloride ABG Glucose Oxyhemoglobin Carboxyhemoglobin Sodium Potassium 3.2 L Chloride Carbon Dioxide BUN 56 H Creatinine 3.0 H Glucose 110 H POC Glucose 120 H 120 H Hemoglobin A1c Lactic Acid Calcium 7.8 L Phosphorus 4.60 H Magnesium Transferrin AST ALT Alkaline Phosphatase Total Creatine Kinase CK-MB (CK-2) Serum Total Protein Total Protein Albumin Jxbwb-5-Incawnahf Uymlf-5-Zgflopuuz Gamma Globulins PEP Interpretation HDL Cholesterol TSH Arterial Blood Glucose Arterial Blood Ionized Calcium Urine WBC (Auto) Urine Creatinine Urine Total Protein Crossmatch 05/06/21 05/06/21 05/06/21 04:27 05:15 17:37 WBC RBC 3.03 L Hgb 8.3 L Hct 25.4 L MCH 27 L RDW Plt Count Seg Neuts % (Manual) Lymphocytes % (Manual) Nucleated RBC % Seg Neutrophils # Man Lymphocytes # (Manual) PT ABG pH POC ABG pCO2 POC ABG pO2 ABG pO2 ABG O2 Saturation ABG Base Excess ABG Hemoglobin ABG Oxyhemoglobin ABG Potassium ABG Chloride ABG Glucose Oxyhemoglobin Carboxyhemoglobin Sodium Potassium Chloride Carbon Dioxide BUN Creatinine Glucose POC Glucose 137 H 132 H Hemoglobin A1c Lactic Acid Calcium Phosphorus Magnesium Transferrin AST ALT Alkaline Phosphatase Total Creatine Kinase CK-MB (CK-2) Serum Total Protein Total Protein Albumin Kmfsz-9-Hpqwtoedj Maznu-8-Atblowkeo Gamma Globulins PEP Interpretation HDL Cholesterol TSH Arterial Blood Glucose Arterial Blood Ionized Calcium Urine WBC (Auto) Urine Creatinine Urine Total Protein Crossmatch 05/07/21 05/07/21 05/07/21 00:30 04:23 04:23 WBC RBC Hgb Hct MCH RDW Plt Count Seg Neuts % (Manual) Lymphocytes % (Manual) Nucleated RBC % Seg Neutrophils # Man Lymphocytes # (Manual) PT ABG pH POC ABG pCO2 POC ABG pO2 ABG pO2 ABG O2 Saturation ABG Base Excess ABG Hemoglobin ABG Oxyhemoglobin ABG Potassium ABG Chloride ABG Glucose Oxyhemoglobin Carboxyhemoglobin Sodium Potassium 3.4 L Chloride 107.1 H Carbon Dioxide BUN 28 H Creatinine 1.9 H Glucose 165 H POC Glucose 121 H Hemoglobin A1c Lactic Acid Calcium 8.2 L Phosphorus Magnesium 1.60 L Transferrin AST ALT Alkaline Phosphatase Total Creatine Kinase CK-MB (CK-2) Serum Total Protein Total Protein Albumin Ezsiv-1-Pevtchhpa Qllzo-1-Fppyafntf Gamma Globulins PEP Interpretation HDL Cholesterol TSH Arterial Blood Glucose Arterial Blood Ionized Calcium Urine WBC (Auto) Urine Creatinine Urine Total Protein Crossmatch 05/07/21 05/07/21 05/07/21 05:30 11:37 17:28 WBC RBC Hgb Hct MCH RDW Plt Count Seg Neuts % (Manual) Lymphocytes % (Manual) Nucleated RBC % Seg Neutrophils # Man Lymphocytes # (Manual) PT ABG pH POC ABG pCO2 POC ABG pO2 ABG pO2 ABG O2 Saturation ABG Base Excess ABG Hemoglobin ABG Oxyhemoglobin ABG Potassium ABG Chloride ABG Glucose Oxyhemoglobin Carboxyhemoglobin Sodium Potassium Chloride Carbon Dioxide BUN Creatinine Glucose POC Glucose 205 H 148 H 170 H Hemoglobin A1c Lactic Acid Calcium Phosphorus Magnesium Transferrin AST ALT Alkaline Phosphatase Total Creatine Kinase CK-MB (CK-2) Serum Total Protein Total Protein Albumin Ytnta-3-Apyvbmcnf Anxxl-0-Ikebntaqb Gamma Globulins PEP Interpretation HDL Cholesterol TSH Arterial Blood Glucose Arterial Blood Ionized Calcium Urine WBC (Auto) Urine Creatinine Urine Total Protein Crossmatch 05/07/21 05/08/21 05/08/21 23:57 05:12 05:12 WBC 11.2 H RBC 3.01 L Hgb 8.2 L Hct 25.5 L MCH 27 L RDW 15.4 H Plt Count Seg Neuts % (Manual) Lymphocytes % (Manual) Nucleated RBC % Seg Neutrophils # Man Lymphocytes # (Manual) PT ABG pH POC ABG pCO2 POC ABG pO2 ABG pO2 ABG O2 Saturation ABG Base Excess ABG Hemoglobin ABG Oxyhemoglobin ABG Potassium ABG Chloride ABG Glucose Oxyhemoglobin Carboxyhemoglobin Sodium Potassium 3.4 L Chloride Carbon Dioxide BUN 37 H Creatinine 2.1 H Glucose 160 H POC Glucose 172 H Hemoglobin A1c Lactic Acid Calcium 8.3 L Phosphorus Magnesium Transferrin AST ALT Alkaline Phosphatase Total Creatine Kinase CK-MB (CK-2) Serum Total Protein Total Protein Albumin Ozeog-0-Zhzunwwrh Bodjw-3-Yzgzctvcm Gamma Globulins PEP Interpretation HDL Cholesterol TSH Arterial Blood Glucose Arterial Blood Ionized Calcium Urine WBC (Auto) Urine Creatinine Urine Total Protein Crossmatch 05/08/21 05/08/21 05/08/21 05:20 09:34 11:35 WBC RBC Hgb Hct MCH RDW Plt Count Seg Neuts % (Manual) Lymphocytes % (Manual) Nucleated RBC % Seg Neutrophils # Man Lymphocytes # (Manual) PT ABG pH POC ABG pCO2 POC ABG pO2 ABG pO2 ABG O2 Saturation ABG Base Excess ABG Hemoglobin ABG Oxyhemoglobin ABG Potassium ABG Chloride ABG Glucose Oxyhemoglobin Carboxyhemoglobin Sodium Potassium Chloride Carbon Dioxide BUN Creatinine Glucose POC Glucose 148 H 208 H Hemoglobin A1c Lactic Acid Calcium Phosphorus Magnesium Transferrin AST ALT Alkaline Phosphatase Total Creatine Kinase CK-MB (CK-2) Serum Total Protein Total Protein Albumin Hrcfv-3-Itcqmgceb Tmbis-3-Qytbdptpv Gamma Globulins PEP Interpretation HDL Cholesterol TSH Arterial Blood Glucose Arterial Blood Ionized Calcium Urine WBC (Auto) Urine Creatinine 56.0 H Urine Total Protein Crossmatch 05/08/21 05/08/21 05/09/21 16:55 23:57 05:30 WBC 12.8 H RBC 2.98 L Hgb 8.1 L Hct 25.4 L MCH 27 L RDW 15.4 H Plt Count Seg Neuts % (Manual) Lymphocytes % (Manual) Nucleated RBC % Seg Neutrophils # Man Lymphocytes # (Manual) PT ABG pH POC ABG pCO2 POC ABG pO2 ABG pO2 ABG O2 Saturation ABG Base Excess ABG Hemoglobin ABG Oxyhemoglobin ABG Potassium ABG Chloride ABG Glucose Oxyhemoglobin Carboxyhemoglobin Sodium Potassium Chloride Carbon Dioxide BUN Creatinine Glucose POC Glucose 179 H 183 H Hemoglobin A1c Lactic Acid Calcium Phosphorus Magnesium Transferrin AST ALT Alkaline Phosphatase Total Creatine Kinase CK-MB (CK-2) Serum Total Protein Total Protein Albumin Sbgzc-9-Xiyoyaqbf Kdmmc-1-Jxycaqstk Gamma Globulins PEP Interpretation HDL Cholesterol TSH Arterial Blood Glucose Arterial Blood Ionized Calcium Urine WBC (Auto) Urine Creatinine Urine Total Protein Crossmatch 05/09/21 05/09/21 05/09/21 05:30 05:31 11:24 WBC RBC Hgb Hct MCH RDW Plt Count Seg Neuts % (Manual) Lymphocytes % (Manual) Nucleated RBC % Seg Neutrophils # Man Lymphocytes # (Manual) PT ABG pH POC ABG pCO2 POC ABG pO2 ABG pO2 ABG O2 Saturation ABG Base Excess ABG Hemoglobin ABG Oxyhemoglobin ABG Potassium ABG Chloride ABG Glucose Oxyhemoglobin Carboxyhemoglobin Sodium 150 H Potassium 3.2 L Chloride 110.2 H Carbon Dioxide BUN 37 H Creatinine 1.8 H Glucose 191 H POC Glucose 120 H 197 H Hemoglobin A1c Lactic Acid Calcium Phosphorus Magnesium Transferrin AST ALT Alkaline Phosphatase Total Creatine Kinase CK-MB (CK-2) Serum Total Protein Total Protein Albumin Ryyzk-7-Mkqjcrfkz Qvytx-3-Stcvoduto Gamma Globulins PEP Interpretation HDL Cholesterol TSH Arterial Blood Glucose Arterial Blood Ionized Calcium Urine WBC (Auto) Urine Creatinine Urine Total Protein Crossmatch 05/09/21 05/09/21 05/10/21 15:49 23:42 05:00 WBC RBC 2.99 L Hgb 8.2 L Hct 25.6 L MCH RDW 15.4 H Plt Count 456 H Seg Neuts % (Manual) Lymphocytes % (Manual) Nucleated RBC % Seg Neutrophils # Man Lymphocytes # (Manual) PT ABG pH POC ABG pCO2 POC ABG pO2 ABG pO2 ABG O2 Saturation ABG Base Excess ABG Hemoglobin ABG Oxyhemoglobin ABG Potassium ABG Chloride ABG Glucose Oxyhemoglobin Carboxyhemoglobin Sodium Potassium Chloride Carbon Dioxide BUN Creatinine Glucose POC Glucose 318 H 152 H Hemoglobin A1c Lactic Acid Calcium Phosphorus Magnesium Transferrin AST ALT Alkaline Phosphatase Total Creatine Kinase CK-MB (CK-2) Serum Total Protein Total Protein Albumin Loigz-9-Pmmllwtvy Ysltx-6-Vhqgqmfgw Gamma Globulins PEP Interpretation HDL Cholesterol TSH Arterial Blood Glucose Arterial Blood Ionized Calcium Urine WBC (Auto) Urine Creatinine Urine Total Protein Crossmatch 05/10/21 05/10/21 05/10/21 05:00 05:30 12:08 WBC RBC Hgb Hct MCH RDW Plt Count Seg Neuts % (Manual) Lymphocytes % (Manual) Nucleated RBC % Seg Neutrophils # Man Lymphocytes # (Manual) PT ABG pH POC ABG pCO2 POC ABG pO2 ABG pO2 ABG O2 Saturation ABG Base Excess ABG Hemoglobin ABG Oxyhemoglobin ABG Potassium ABG Chloride ABG Glucose Oxyhemoglobin Carboxyhemoglobin Sodium 148 H Potassium 3.4 L Chloride 110.5 H Carbon Dioxide BUN 36 H Creatinine 1.6 H Glucose 185 H POC Glucose 168 H 193 H Hemoglobin A1c Lactic Acid Calcium Phosphorus Magnesium Transferrin AST ALT Alkaline Phosphatase Total Creatine Kinase CK-MB (CK-2) Serum Total Protein Total Protein Albumin Jhxim-4-Vsijdlpnf Mgdgg-2-Gaapcffaa Gamma Globulins PEP Interpretation HDL Cholesterol TSH Arterial Blood Glucose Arterial Blood Ionized Calcium Urine WBC (Auto) Urine Creatinine Urine Total Protein Crossmatch 05/10/21 05/10/21 05/11/21 18:02 23:25 05:40 WBC RBC 3.11 L Hgb 8.3 L Hct 26.6 L MCH 27 L RDW 15.7 H Plt Count 489 H Seg Neuts % (Manual) Lymphocytes % (Manual) Nucleated RBC % Seg Neutrophils # Man Lymphocytes # (Manual) PT ABG pH POC ABG pCO2 POC ABG pO2 ABG pO2 ABG O2 Saturation ABG Base Excess ABG Hemoglobin ABG Oxyhemoglobin ABG Potassium ABG Chloride ABG Glucose Oxyhemoglobin Carboxyhemoglobin Sodium Potassium Chloride Carbon Dioxide BUN Creatinine Glucose POC Glucose 205 H 171 H Hemoglobin A1c Lactic Acid Calcium Phosphorus Magnesium Transferrin AST ALT Alkaline Phosphatase Total Creatine Kinase CK-MB (CK-2) Serum Total Protein Total Protein Albumin Pwwon-2-Cqnusrxch Projy-9-Vzxpfvthh Gamma Globulins PEP Interpretation HDL Cholesterol TSH Arterial Blood Glucose Arterial Blood Ionized Calcium Urine WBC (Auto) Urine Creatinine Urine Total Protein Crossmatch 05/11/21 05/11/21 05/11/21 05:40 11:45 18:23 WBC RBC Hgb Hct MCH RDW Plt Count Seg Neuts % (Manual) Lymphocytes % (Manual) Nucleated RBC % Seg Neutrophils # Man Lymphocytes # (Manual) PT ABG pH POC ABG pCO2 POC ABG pO2 ABG pO2 ABG O2 Saturation ABG Base Excess ABG Hemoglobin ABG Oxyhemoglobin ABG Potassium ABG Chloride ABG Glucose Oxyhemoglobin Carboxyhemoglobin Sodium 149 H Potassium Chloride 112.0 H Carbon Dioxide BUN 36 H Creatinine 1.4 H Glucose 164 H POC Glucose 176 H 203 H Hemoglobin A1c Lactic Acid Calcium Phosphorus Magnesium Transferrin AST ALT Alkaline Phosphatase Total Creatine Kinase CK-MB (CK-2) Serum Total Protein Total Protein Albumin Rclpz-9-Cisfmgpcw Eptrv-7-Eywulwhxt Gamma Globulins PEP Interpretation HDL Cholesterol TSH Arterial Blood Glucose Arterial Blood Ionized Calcium Urine WBC (Auto) Urine Creatinine Urine Total Protein Crossmatch 05/12/21 05/12/21 05/12/21 00:30 04:10 04:10 WBC RBC 3.13 L Hgb 8.4 L Hct 26.6 L MCH 27 L RDW 15.7 H Plt Count 496 H Seg Neuts % (Manual) Lymphocytes % (Manual) Nucleated RBC % Seg Neutrophils # Man Lymphocytes # (Manual) PT ABG pH POC ABG pCO2 POC ABG pO2 ABG pO2 ABG O2 Saturation ABG Base Excess ABG Hemoglobin ABG Oxyhemoglobin ABG Potassium ABG Chloride ABG Glucose Oxyhemoglobin Carboxyhemoglobin Sodium Potassium Chloride Carbon Dioxide BUN 36 H Creatinine 1.3 H Glucose 182 H POC Glucose 161 H Hemoglobin A1c Lactic Acid Calcium 8.3 L Phosphorus Magnesium Transferrin AST ALT Alkaline Phosphatase Total Creatine Kinase CK-MB (CK-2) Serum Total Protein Total Protein Albumin Ouhcd-1-Iotkfidah Ahheh-0-Xzxfzoocg Gamma Globulins PEP Interpretation HDL Cholesterol TSH Arterial Blood Glucose Arterial Blood Ionized Calcium Urine WBC (Auto) Urine Creatinine Urine Total Protein Crossmatch 05/12/21 05/12/21 05/12/21 05:24 11:50 17:45 WBC RBC Hgb Hct MCH RDW Plt Count Seg Neuts % (Manual) Lymphocytes % (Manual) Nucleated RBC % Seg Neutrophils # Man Lymphocytes # (Manual) PT ABG pH POC ABG pCO2 POC ABG pO2 ABG pO2 ABG O2 Saturation ABG Base Excess ABG Hemoglobin ABG Oxyhemoglobin ABG Potassium ABG Chloride ABG Glucose Oxyhemoglobin Carboxyhemoglobin Sodium Potassium Chloride Carbon Dioxide BUN Creatinine Glucose POC Glucose 177 H 180 H 187 H Hemoglobin A1c Lactic Acid Calcium Phosphorus Magnesium Transferrin AST ALT Alkaline Phosphatase Total Creatine Kinase CK-MB (CK-2) Serum Total Protein Total Protein Albumin Hayug-3-Nmpcqphuf Zuoty-2-Kbxgziuvi Gamma Globulins PEP Interpretation HDL Cholesterol TSH Arterial Blood Glucose Arterial Blood Ionized Calcium Urine WBC (Auto) Urine Creatinine Urine Total Protein Crossmatch 05/12/21 05/13/21 05/13/21 23:20 04:24 04:24 WBC RBC 3.10 L Hgb 8.5 L Hct 26.3 L MCH RDW 15.6 H Plt Count 503 H Seg Neuts % (Manual) Lymphocytes % (Manual) Nucleated RBC % Seg Neutrophils # Man Lymphocytes # (Manual) PT ABG pH POC ABG pCO2 POC ABG pO2 ABG pO2 ABG O2 Saturation ABG Base Excess ABG Hemoglobin ABG Oxyhemoglobin ABG Potassium ABG Chloride ABG Glucose Oxyhemoglobin Carboxyhemoglobin Sodium Potassium Chloride Carbon Dioxide BUN 30 H Creatinine Glucose 138 H POC Glucose 142 H Hemoglobin A1c Lactic Acid Calcium 8.3 L Phosphorus Magnesium 1.60 L Transferrin AST ALT Alkaline Phosphatase Total Creatine Kinase CK-MB (CK-2) Serum Total Protein Total Protein Albumin Ttrzk-6-Jcvzjabwv Lhddr-7-Dhlaaewcw Gamma Globulins PEP Interpretation HDL Cholesterol TSH Arterial Blood Glucose Arterial Blood Ionized Calcium Urine WBC (Auto) Urine Creatinine Urine Total Protein Crossmatch 05/13/21 05/13/21 05/13/21 05:29 11:44 16:52 WBC RBC Hgb Hct MCH RDW Plt Count Seg Neuts % (Manual) Lymphocytes % (Manual) Nucleated RBC % Seg Neutrophils # Man Lymphocytes # (Manual) PT ABG pH POC ABG pCO2 POC ABG pO2 ABG pO2 ABG O2 Saturation ABG Base Excess ABG Hemoglobin ABG Oxyhemoglobin ABG Potassium ABG Chloride ABG Glucose Oxyhemoglobin Carboxyhemoglobin Sodium Potassium Chloride Carbon Dioxide BUN Creatinine Glucose POC Glucose 128 H 148 H 160 H Hemoglobin A1c Lactic Acid Calcium Phosphorus Magnesium Transferrin AST ALT Alkaline Phosphatase Total Creatine Kinase CK-MB (CK-2) Serum Total Protein Total Protein Albumin Drqrk-9-Nsjdwmqjs Lsjgu-7-Jmmojbwtq Gamma Globulins PEP Interpretation HDL Cholesterol TSH Arterial Blood Glucose Arterial Blood Ionized Calcium Urine WBC (Auto) Urine Creatinine Urine Total Protein Crossmatch 05/13/21 05/14/21 05/14/21 23:25 04:43 04:43 WBC RBC 3.02 L Hgb 8.3 L Hct 25.6 L MCH RDW 15.5 H Plt Count 482 H Seg Neuts % (Manual) Lymphocytes % (Manual) Nucleated RBC % Seg Neutrophils # Man Lymphocytes # (Manual) PT ABG pH POC ABG pCO2 POC ABG pO2 ABG pO2 ABG O2 Saturation ABG Base Excess ABG Hemoglobin ABG Oxyhemoglobin ABG Potassium ABG Chloride ABG Glucose Oxyhemoglobin Carboxyhemoglobin Sodium Potassium Chloride Carbon Dioxide BUN 29 H Creatinine Glucose 192 H POC Glucose 167 H Hemoglobin A1c Lactic Acid Calcium 8.1 L Phosphorus Magnesium Transferrin AST ALT Alkaline Phosphatase Total Creatine Kinase CK-MB (CK-2) Serum Total Protein Total Protein Albumin Ilewh-3-Tftvqjpah Hcjml-4-Uczhrwqfg Gamma Globulins PEP Interpretation HDL Cholesterol TSH Arterial Blood Glucose Arterial Blood Ionized Calcium Urine WBC (Auto) Urine Creatinine Urine Total Protein Crossmatch 05/14/21 05/14/21 05:37 10:59 WBC RBC Hgb Hct MCH RDW Plt Count Seg Neuts % (Manual) Lymphocytes % (Manual) Nucleated RBC % Seg Neutrophils # Man Lymphocytes # (Manual) PT ABG pH POC ABG pCO2 POC ABG pO2 ABG pO2 ABG O2 Saturation ABG Base Excess ABG Hemoglobin ABG Oxyhemoglobin ABG Potassium ABG Chloride ABG Glucose Oxyhemoglobin Carboxyhemoglobin Sodium Potassium Chloride Carbon Dioxide BUN Creatinine Glucose POC Glucose 190 H 215 H Hemoglobin A1c Lactic Acid Calcium Phosphorus Magnesium Transferrin AST ALT Alkaline Phosphatase Total Creatine Kinase CK-MB (CK-2) Serum Total Protein Total Protein Albumin Dnkiy-6-Qetspatgx Sthzs-2-Zfhofsmxc Gamma Globulins PEP Interpretation HDL Cholesterol TSH Arterial Blood Glucose Arterial Blood Ionized Calcium Urine WBC (Auto) Urine Creatinine Urine Total Protein Crossmatch
--- NOTE | 2021-05-14 16:30 | Event Note ---
Date: 05/14/21 Reviewed chart. Noted request for IR gastrostomy tube. Contacted case management to determine if necessary for LTAC transfer. Further information pending. Ordered CT scan of the abdomen and pelvis without contrast.
--- NOTE | 2021-05-14 17:54 | Progress Note ---
Assessment and Plan Patient status post tracheostomy yesterday. Trach dressing is dry and clean today. Patient is being nutritionally maintained with a nasogastric tube. Request for IR to place PEG tube anticipated. Subjective Date of service: 05/14/21 Narrative: Patient status post tracheostomy yesterday. Trach dressing is dry and clean today. Patient is being nutritionally maintained with a nasogastric tube. Request for IR to place PEG tube anticipated. Objective Vital Signs - 12hr 05/14/21 05/14/21 05/14/21 06:00 06:31 07:00 Temperature Pulse Rate 111 H 103 H 102 H Pulse Rate [ From Monitor] Respiratory 19 14 15 Rate Blood Pressure 122/74 122/74 128/59 O2 Sat by Pulse 99 100 100 Oximetry 05/14/21 05/14/21 05/14/21 07:22 07:31 08:00 Temperature 101.4 F H Pulse Rate 104 H 103 H Pulse Rate [ 103 H From Monitor] Respiratory 14 14 Rate Blood Pressure 128/59 140/63 O2 Sat by Pulse 99 100 Oximetry 05/14/21 05/14/21 05/14/21 08:31 09:00 09:31 Temperature Pulse Rate 102 H 108 H 102 H Pulse Rate [ From Monitor] Respiratory 14 28 H 14 Rate Blood Pressure 140/63 145/64 145/64 O2 Sat by Pulse 100 100 99 Oximetry 05/14/21 05/14/21 05/14/21 09:49 10:00 10:31 Temperature Pulse Rate 107 H 109 H 94 H Pulse Rate [ From Monitor] Respiratory 24 14 Rate Blood Pressure 145/64 141/68 141/68 O2 Sat by Pulse 99 99 Oximetry 05/14/21 05/14/21 05/14/21 11:00 11:22 11:31 Temperature 99.9 F H Pulse Rate 96 H 95 H Pulse Rate [ From Monitor] Respiratory 12 14 Rate Blood Pressure 123/54 123/54 O2 Sat by Pulse 100 100 Oximetry 05/14/21 05/14/21 05/14/21 12:00 12:01 12:31 Temperature Pulse Rate 96 H 96 H 102 H Pulse Rate [ 96 H From Monitor] Respiratory 14 14 23 Rate Blood Pressure 96/48 108/55 108/55 O2 Sat by Pulse 100 100 100 Oximetry 05/14/21 05/14/21 05/14/21 13:00 13:31 14:00 Temperature Pulse Rate 96 H 95 H 102 H Pulse Rate [ From Monitor] Respiratory 14 14 21 Rate Blood Pressure 96/48 96/48 122/64 O2 Sat by Pulse 100 100 100 Oximetry 05/14/21 05/14/21 05/14/21 14:31 15:00 15:31 Temperature Pulse Rate 103 H 103 H 105 H Pulse Rate [ From Monitor] Respiratory 22 15 21 Rate Blood Pressure 122/64 119/58 119/58 O2 Sat by Pulse 100 100 99 Oximetry 05/14/21 05/14/21 05/14/21 15:54 16:00 16:31 Temperature Pulse Rate 104 H 103 H 111 H Pulse Rate [ 103 H From Monitor] Respiratory 22 24 Rate Blood Pressure 119/58 134/67 134/67 O2 Sat by Pulse 100 99 99 Oximetry 05/14/21 17:00 Temperature Pulse Rate 109 H Pulse Rate [ From Monitor] Respiratory 14 Rate Blood Pressure 141/72 O2 Sat by Pulse 98 Oximetry - Labs 05/14/21 04:43 05/14/21 04:43 Diabetes panel 05/14/21 Range/Units 04:43 Sodium 138 (137-145) mmol/L Potassium 4.0 (3.6-5.0) mmol/L Chloride 104.1 (98-107) mmol/L Carbon Dioxide 23 (22-30) mmol/L BUN 29 H (7-17) mg/dL Creatinine 1.2 (0.6-1.2) mg/dL Glucose 192 H (65-100) mg/dL Calcium 8.1 L (8.4-10.2) mg/dL Calcium panel 05/14/21 Range/Units 04:43 Calcium 8.1 L (8.4-10.2) mg/dL Phosphorus 3.20 (2.5-4.5) mg/dL Pituitary panel 05/14/21 Range/Units 04:43 Sodium 138 (137-145) mmol/L Potassium 4.0 (3.6-5.0) mmol/L Chloride 104.1 (98-107) mmol/L Carbon Dioxide 23 (22-30) mmol/L BUN 29 H (7-17) mg/dL Creatinine 1.2 (0.6-1.2) mg/dL Glucose 192 H (65-100) mg/dL Calcium 8.1 L (8.4-10.2) mg/dL Adrenal panel 05/14/21 Range/Units 04:43 Sodium 138 (137-145) mmol/L Potassium 4.0 (3.6-5.0) mmol/L Chloride 104.1 (98-107) mmol/L Carbon Dioxide 23 (22-30) mmol/L BUN 29 H (7-17) mg/dL Creatinine 1.2 (0.6-1.2) mg/dL Glucose 192 H (65-100) mg/dL Calcium 8.1 L (8.4-10.2) mg/dL
[2021-05-15] MEDS: INSULIN LISPRO 100 UNIT/ML SUB-Q SCH ×4 (00:07→18:26)
[2021-05-15 04:04] LABS: Bacteria,Urine 1+ /HPF (Negative); Bilirubin,Urine NEG (Negative); Blood,Urine SM (Negative); Color,Urine Yellow (Yellow); Mucus,Urine FEW /HPF; Urobilinogen,Urine < 2.0 mg/dL (<2.0)
[2021-05-15 05:25] LABS: Hematocrit 23.6 % (30.3-42.9); Hemoglobin 7.7 gm/dl (10.1-14.3); Mean Corpuscular HGB Conc 33 % (30-34); Mean Corpuscular Volume 84 fl (79-97); Platelet Count 430 K/mm3 (140-440); Red Cell Distribution Width 15.3 % (13.2-15.2)
[2021-05-15 05:37] LABS: Calcium 8.2 mg/dL (8.4-10.2)
[2021-05-15] MEDS: LEVOTHYROXINE 50 MCG TAB PO SCH (06:11)
[2021-05-15] MEDS ORDERED: POTASSIUM PHOSPHATE 30 MMOL in SODIUM CHLORIDE 0.9% 500 ML 500 ML IV ONE (08:15)
[2021-05-15] MEDS ORDERED: MAGNESIUM SULFATE 2 GM/50 ML BAG IV ONE (08:16)
[2021-05-15] MEDS: FAMOTIDINE 10 MG TAB FEEDTUBE SCH ×2 (10:09→21:50)
[2021-05-15] MEDS: amLODIPine 5 MG TAB PO SCH (10:09)
[2021-05-15] MEDS: SENNOSIDES/DOCUSATE SODIUM 8.6/50 MG TAB FEEDTUBE SCH ×2 (10:09→21:50)
[2021-05-15] MEDS: HEPARIN 5,000 UNIT/1 ML VIAL SUB-Q SCH ×2 (10:09→21:50)
[2021-05-15] MEDS: ASPIRIN 81 MG TAB CHEW FEEDTUBE SCH (10:09)
[2021-05-15] MEDS: SODIUM BICARBONATE 650 MG TAB PO SCH ×3 (10:11→20:56)
--- NOTE | 2021-05-15 10:43 | Progress Note ---
<LISA CLIFTON - Last Filed: 05/15/21 10:44> Assessment and Plan Assessment and plan: This is a 80-year-old female, group home resident with past medical history of GERD, hypothyroidism, hyperlipidemia, schizophrenia and dementia admitted with hypothermia, hyponatremia, hypokalemia, lactic acidosis, acute kidney injury, rhabdomyolysis and hyperosmolar nonketotic state. Hospital Course to Date: 04/21: Given 1 L LR bolus per nephrology and D5W increased to 125 mL's per hour, COVID-19 PCR pending, CXR and ABG ordered as patient was weaned from BiPAP to 3 L nasal cannula however was uptitrated back to nonrebreather. Will obtain blood cultures x2 given her leukocytosis and hypothermia. Replace potassium. Neurosurgery and neurology consulted and Luther catheter placed. 04/22: Improvement to sodium noted, slight hypokalemia which will be repleted, slight improvement to renal function, LFTs and rhabdomyolysis. Seen by neurosurgery today. Patient still making urine. transition to ssi and start TF as AG 15 04/23/2021: Given racemic epinephrine again due to stridor, continue IV fluids per nephrology, continue to trend sodium and BMP. 04/24/2021: 70/30 increased d/t hyperglycemia but recent BMP showed BG>300, gave additional 5 units IV insulin and ordered 5 units TID scheduled. However after IV insulin her PCOT was 400. Start on insulin gtt for hyperglycemia. Per RN she was not of IV D5 overniught d/t having one IV which was needed for emergency. Day RN did start dextrose. Remains with hyperglycemia. 04/25: Patient obtunded, withdrawal to pain only, on 50%Venti mask SPO2 abobe 92%. Plan to transition to SubQ insulin. Patient with mild hypernatremia this am, FWF added, will stop IVF for now. 04/26: Patient s/p intubation this am. Mentation is unchanged, plan for MRI brain today per NeuroSurg. Still hyperglycemic, hypernatremia improved, D5W D/katlyn, and basal insulin adjusted. 04/27: Bronch overnight. CXR with mild improvement. D/w Nephro plan for HD today, RIJ VasCath inserted. MRI on hold per [facility] patient is too unstable at this time, plan for possible spinal drained tomorrow to see if mentation will improve. 04/28: Tolerated HD overnight, only UF. Mentation remains the same. D/w CCM plan for possible large volume spinal tap under fluoroscopy today. Plan for possible HD again today. Continue FWF for elevated Na. 04/29: MARY overnight. Plan for spinal tap this am. febrile overnight with leukocytosis, remains on pressors and more tachycardic now. Will panculture patient, and empiric IV was initiated. Remains hyperglycemic, basal insulin adjusted. 04/30: Patient's mentation remains unchanged post spinal tap. Plan for possible MRI brain next week. Afebrile overnight and leukocytosis improved, However, vent settings are going up and this am ABG with hypoxia, this am CXR with worsening opacities. Patient with 3+ pitting edema. Continue HD per Nephro. Continue current empiric IV abx, f/u on culture data, might need to get ID on board if worsen. 05/01: Mentation is unchanged, still on pressors. Febrile this am, continue IV abx, ID consulted. 3L out yesterday, plan for HD again tomorrow. Plt count improved, might need to restart AC, will D/w CCM. 05/02: No change in mentation and she is now noted to be decorticating to pain -> MRI brain ordered. Scheduled for HD today. ID consult completed. 05/03: Neurology consulted given MRI findings of multiple acute CVAs, LINCOLN ordered, EEG pending, started on aspirin and Lipitor. updated POA 05/04: Received hemodialysis today, will schedule for LINCOLN today however HD was ongoing at the time neurology will obtain MRA brain and neck then consider LINCOLN, increasing midodrine to aid in weaning Levophed. 05/05: MRA/MRV completed today, urine culture grew Roselyn and was started on fluconazole, LINCOLN tentatively scheduled for tomorrow. Resume tube feeding and n.p.o. at midnight. 05/06: Patient was scheduled for LINCOLN which was attempted however patient became hypotensive and the procedure was aborted. She received HD today. No acute events reported overnight. Tube feedings resumed. 05/07: No acute changes overnight. 05/08: May need permacath, goals of care to be discussed and will likely happen after neuro recommendations tomorrow since LINCOLN was unable to be completed. No acute events overnight. Replete mag, decreased midodrine. 05/09: MARY overnight. Patient remains unresponsive. No HD today per Nephro, low K repleted. D/w CCM plan for possible conference call with patient's POA tomorrow to further discuss plan of care and possible alternatives. 05/10: Mentation unchanged. Given patient multiple failed PST, plan for possible trach and PEG per CCM. General Surgery consulted. No plan for HD today, low K repleted. Proph AC resumed, plt is stable. 05/11: Na remains elevated, continue FWF. Mildly hypertensive, continue PRN Hydral for SBP> 170. Possible trach and Peg on sunday by Gen. Surgery. 05/12: Renal function continue to improve, no indication for any more HD, VasCath D/katlyn. Hypernatremia improved, D/C IVF continue FWF. Hypertensive overnight, Norvasc added and PRN labetalol for SBP greater than 170. NPO After midnight tonight for possible trach and PEG in the am by Gen surgery 05/13: MARY overnight. Plan for Trach and PEG today by Gen. Surgery. Per case management arrangement made for possible LTAC tomorrow. 05/14: s/p tracheostomy, no signs of any complications noted. Febrile this am with low BP and tachycardia, WBcs wnr. Orders placed X1L of IVF, UA, and blood culture. Awaiting PEGT placement by IR. D/C planning for LTAC possibly next week. 05/15: Remains stable on the vent. Mentation unchanged. Remains with low grade fevers, BP normalized post IVF. Awaiting PEGT placement by IR. Electrolytes repleted, repeat lab in the am Assessment and Plan #Neuro:Acute CVA #Acute metabolic encephalopathy #Normal Pressure Hydrocephalus -CT head shows lateral ventricles and third ventricle dilation, raises possibility of normal pressure hydrocephalus -Neurology and neurosurgery consulted, appreciate recommendations -neurosurgery no acute interventions -04/29 s/p spinal tap- 24ml out -MRI brain with multiple ischemic events in both hemisphere, possible embolic event with water shed infarct can not be totally excluded. -Continue ASA and lipitor -Maintain sleep-wake cycle -Avoid delirium -Hold off on restarting home antipsychotic medications #Hypotension-improved #Tachycardia #Sepsis -Was hypotensive, multifactorial-hypovelemia vs infectious process -S/p pressors -BP is now stable, Midodrine D/C -Norvasc added & PRN Labetalol -Continue blood pressure monitor per protocol -Maintain MAP above 65 and SBP less than 170 #Respiratory: Acute hypoxic respiratory failure #CAP #Possible Aspiration -Intubation on 04/26 -05/13 S/p Tracheostomy -Vent setting:A/C-30%,6,14,450 -No ABG this am -CCM consulted, appreciate recommendations -VAP bundle addressed -Aspiration precaution HOB above 30 -PRN ABG and CXR per CCM -Continue SPO2 monitoring for SPO2 goal above 92% -Multiple failed PST -Gen. Surgery consulted #GI:Transaminitis #Hypoalbuminemia -Presented with transaminitis -Trend LFTs -Continue enteral nutrition -Ntr consult for TF -Awaiting PEGT placement by LALA -BR: Leonela -PPI #:Acute Kidney Injury (SYED) likely secondary to vasomotor nephropathy #Hypokalemia #Hypernatremia-improved #Urinary Retention-resolved -FeNA 0.50 indicating prerenal sate -Nephrology and CCM consulted, appreciate recommendations -04/27 vascath inserted and HD initiated, patient tolerated it well -Continue HD per Nephro -No HD per Nephro -Luther catheter placed for strict intake and output -Avoid nephrotoxic medication, Renally dose medications -Continue to monitor and replace electrolytes as needed -Trend BMP #ID:CAP #Urinary Tract Infection(UTI) -Patient presented hypothemic -CXR shows increased interstitial prominence of densities in bilateral lungs -COVID-19 PCR negative -Blood culture x2 NGTD -Antibiotic therapy course ended today 04/25 -Bculture and sputum NGTD, UA with pyuria, culture + yeast -Low grade, repeat Bculture and UA -Monitor WBC and fever curve -Daily CBC monitor -ID on consult #Endo:Hyperglycemia #s/p HHNK -Transition to SubQ insulin -Continue high dose SSI Q6hrs -Continue Basal, NPH -Avoid hypoglycemia #Heme:Thrombocytopenia-resolved -Presented with low plt, unknown etiology -Plt count improved -Resumed AC- Heparin SubQ -Trend CBC -Transfuse to hemoglobin less than 7 -Monitor for bleeding -r/o DVT, BE doppler neg -SCD to bilateral lower extremities while in bed DISPOSITION: LTAC Placement, possibly Next Week The high probability of a clinically significant, sudden or life threatening deterioration of the [Multiple] system(s) required my full and direct attention, intervention and personal management. The aggregate critical care time was [60] minutes. This time is in addition to time spent performing reported procedures but includes the following: [x] Data Review and interpretation [x] Patient assessment and monitoring of vital signs [x] Documentation [x] Medication orders and management Disposition Plan: ICU Total Time Spent with Patient (Minutes): 60 History Interval history: Patient seen and examined at the bedside. Remains stable on the vent. Mentation unchanged. Remains with low grade fevers, BP normalized post IVF. MARY overnight Hospitalist Physical - Constitutional Vitals: Temp Pulse Resp BP Pulse Ox 100.4 F H 106 H 14 137/73 97 05/15/21 08:00 05/15/21 10:09 05/15/21 09:00 05/15/21 10:09 05/15/21 09:00 General appearance: Present: no acute distress, other (Unresponsive) - EENT Eyes: Present: PERRL - Respiratory Respiratory effort: normal Respiratory: bilateral: rhonchi - Cardiovascular Rhythm: regular Heart Sounds: Present: S1 & S2 - Extremities Extremities: no ischemia, pulses intact, pulses symmetrical Extremity abnormal: edema - Peripheral Assessment Generalized Edema Type: Non-pitting Edema Degree: 1+ Capillary Refill: < 3 seconds Skin Temperature: Warm Peripheral Pulses: within normal limits - Abdominal General gastrointestinal: soft, non-distended, normal bowel sounds - Integumentary Integumentary: Present: warm, dry - Psychiatric Psychiatric: other (Unresponsive) - Neurologic Neurologic: other (Unresponsive) - Allied Health Allied health notes reviewed: nursing HEART Score - HEART Score Troponin: Troponin T 0.021 ng/mL (0.00-0.029) 04/20/21 17:10 Results - Labs CBC & Chem 7: 05/15/21 04:09 05/15/21 04:09 Labs: Laboratory Last Values WBC 11.5 K/mm3 (4.5-11.0) H 05/15/21 04:09 RBC 2.80 M/mm3 (3.65-5.03) L 05/15/21 04:09 Hgb 7.7 gm/dl (10.1-14.3) L 05/15/21 04:09 Hct 23.6 % (30.3-42.9) L 05/15/21 04:09 MCV 84 fl (79-97) 05/15/21 04:09 MCH 28 pg (28-32) 05/15/21 04:09 MCHC 33 % (30-34) 05/15/21 04:09 RDW 15.3 % (13.2-15.2) H 05/15/21 04:09 Plt Count 430 K/mm3 (140-440) 05/15/21 04:09 Add Manual Diff Complete 04/28/21 04:00 Total Counted 100 04/28/21 04:00 Seg Neutrophils % Staffing Mgr 04/28/21 04:00 Seg Neuts % (Manual) 77.0 % (40.0-70.0) H 04/26/21 09:33 Band Neutrophils % 2.0 % 04/28/21 04:00 Lymphocytes % (Manual) 1.0 % (13.4-35.0) L 04/28/21 04:00 Reactive Lymphs % (Man) 0 % 04/28/21 04:00 Monocytes % (Manual) 1.0 % (0.0-7.3) 04/28/21 04:00 Eosinophils % (Manual) 3.0 % (0.0-4.3) 04/28/21 04:00 Metamyelocytes % 1.0 % 04/28/21 04:00 Myelocytes % 0 % 04/28/21 04:00 Promyelocytes % 0 % 04/28/21 04:00 Blast Cells % 0 % 04/28/21 04:00 Nucleated RBC % 4.0 % (0.0-0.9) H 04/28/21 04:00 Seg Neutrophils # Man 11.6 K/mm3 (1.8-7.7) H 04/28/21 04:00 Band Neutrophils # 0.3 K/mm3 04/28/21 04:00 Lymphocytes # (Manual) 0.1 K/mm3 (1.2-5.4) L 04/28/21 04:00 Abs React Lymphs (Man) 0.0 K/mm3 04/28/21 04:00 Monocytes # (Manual) 0.1 K/mm3 (0.0-0.8) 04/28/21 04:00 Eosinophils # (Manual) 0.4 K/mm3 (0.0-0.4) 04/28/21 04:00 Basophils # (Manual) 0.0 K/mm3 (0.0-0.1) 04/28/21 04:00 Metamyelocytes # 0.1 K/mm3 04/28/21 04:00 Myelocytes # 0.0 K/mm3 04/28/21 04:00 Promyelocytes # 0.0 K/mm3 04/28/21 04:00 Blast Cells # 0.0 K/mm3 04/28/21 04:00 WBC Morphology Not Reportable 04/28/21 04:00 Hypersegmented Neuts Not Reportable 04/28/21 04:00 Hyposegmented Neuts Not Reportable 04/28/21 04:00 Hypogranular Neuts Not Reportable 04/28/21 04:00 Smudge Cells Not Reportable 04/28/21 04:00 Toxic Granulation Not Reportable 04/28/21 04:00 Toxic Vacuolation Not Reportable 04/28/21 04:00 Dohle Bodies Not Reportable 04/28/21 04:00 Pelger-Huet Anomaly Not Reportable 04/28/21 04:00 Moni Rods Not Reportable 04/28/21 04:00 Platelet Estimate Consistent w auto 04/28/21 04:00 Clumped Platelets Not Reportable 04/28/21 04:00 Plt Clumps, EDTA Not Reportable 04/28/21 04:00 Large Platelets Few 04/28/21 04:00 Giant Platelets Not Reportable 04/28/21 04:00 Platelet Satelliting Not Reportable 04/28/21 04:00 Plt Morphology Comment Not Reportable 04/28/21 04:00 RBC Morphology Not Reportable 04/28/21 04:00 Dimorphic RBCs Not Reportable 04/28/21 04:00 Polychromasia Not Reportable 04/28/21 04:00 Hypochromasia Not Reportable 04/28/21 04:00 Poikilocytosis Not Reportable 04/28/21 04:00 Anisocytosis Not Reportable 04/28/21 04:00 Microcytosis Not Reportable 04/28/21 04:00 Macrocytosis Not Reportable 04/28/21 04:00 Spherocytes Not Reportable 04/28/21 04:00 Pappenheimer Bodies Not Reportable 04/28/21 04:00 Sickle Cells Not Reportable 04/28/21 04:00 Target Cells 1+ 04/28/21 04:00 Tear Drop Cells Not Reportable 04/28/21 04:00 Ovalocytes Not Reportable 04/28/21 04:00 Helmet Cells Not Reportable 04/28/21 04:00 Parkinson-Index Bodies Not Reportable 04/28/21 04:00 [place] Rings Not Reportable 04/28/21 04:00 [place] Cells Not Reportable 04/28/21 04:00 Bite Cells Not Reportable 04/28/21 04:00 Crenated Cell Not Reportable 04/28/21 04:00 Elliptocytes Not Reportable 04/28/21 04:00 Acanthocytes (Spur) Not Reportable 04/28/21 04:00 Rouleaux Not Reportable 04/28/21 04:00 Hemoglobin C Crystals Not Reportable 04/28/21 04:00 Schistocytes Not Reportable 04/28/21 04:00 Malaria parasites Not Reportable 04/28/21 04:00 Herrera Bodies Not Reportable 04/28/21 04:00 Hem Pathologist Commnt No 04/28/21 04:00 PT 14.7 Sec. (12.2-14.9) 05/13/21 04:24 INR 1.04 (0.87-1.13) 05/13/21 04:24 APTT 36.6 Sec. (24.2-36.6) 04/28/21 05:00 Heparin Anti-Xa, Unfract Negative (Negative) 04/24/21 17:29 ABG pH 7.487 (7.320-7.450) H 05/02/21 04:34 POC ABG pCO2 35.3 mmHg (32.0-48.0) 05/02/21 04:34 ABG pCO2 31.6 mm Hg 04/21/21 15:47 POC ABG pO2 78.6 mmHg (83-108) L 05/02/21 04:34 ABG pO2 168.1 mm Hg (80.0-90.0) H 04/21/21 15:47 POC ABG HCO3 26.1 05/02/21 04:34 ABG HCO3 23.3 mmol/L (20.0-26.0) 04/21/21 15:47 ABG O2 Saturation 96.0 (0-100) 05/02/21 04:34 ABG O2 Content 12.7 (0.0-44) 04/21/21 15:47 POC ABG Base Excess 2.9 05/02/21 04:34 ABG Base Excess 0.3 mmol/L (-2.0-3.0) 04/21/21 15:47 ABG Hemoglobin 11.5 (12.0-17.5) L 05/02/21 04:34 ABG Oxyhemoglobin 95.1 (94-98) 05/02/21 04:34 ABG Carboxyhemoglobin 1.0 % (0.0-5.0) 04/21/21 15:47 ABG Methemoglobin 0.3 (0.0-1.5) 05/02/21 04:34 ABG Sodium 138.6 mmol/L (136.0-145.0) 05/02/21 04:34 ABG Potassium 3.4 mmol/L (3.40-4.50) 05/02/21 04:34 ABG Chloride 105.0 mmol/L (98-107) 05/02/21 04:34 ABG Glucose 122 mg/dL (65-95) H 05/02/21 04:34 VBG pH 7.397 (7.320-7.420) 04/20/21 17:10 Oxyhemoglobin 97.5 % (95.0-99.0) 04/21/21 15:47 Carboxyhemoglobin 0.6 (0.5-1.5) 05/02/21 04:34 FiO2 100 % 04/21/21 15:47 FiO2 % 40.0 05/02/21 04:34 Sodium 140 mmol/L (137-145) 05/15/21 04:09 Potassium 3.6 mmol/L (3.6-5.0) 05/15/21 04:09 Chloride 106.5 mmol/L (98-107) 05/15/21 04:09 Carbon Dioxide 24 mmol/L (22-30) 05/15/21 04:09 Anion Gap 13 mmol/L 05/15/21 04:09 BUN 22 mg/dL (7-17) H 05/15/21 04:09 Creatinine 1.1 mg/dL (0.6-1.2) 05/15/21 04:09 Estimated GFR 58 ml/min 05/15/21 04:09 BUN/Creatinine Ratio 20 % 05/15/21 04:09 Glucose 148 mg/dL (65-100) H 05/15/21 04:09 POC Glucose 161 mg/dL (70-105) H 05/15/21 05:51 Hemoglobin A1c 17.1 % (4-6) H 04/22/21 15:55 Lactic Acid 1.90 mmol/L (0.7-2.0) 04/20/21 19:56 Calcium 8.2 mg/dL (8.4-10.2) L 05/15/21 04:09 Phosphorus 2.00 mg/dL (2.5-4.5) L D 05/15/21 04:09 Magnesium 1.70 mg/dL (1.7-2.3) 05/15/21 04:09 Iron 62 ug/dL (37-170) 04/24/21 17:29 TIBC 285 mcg/dL (250-450) 04/24/21 17:29 % Saturation 21.75 % 04/24/21 17:29 Transferrin 112 mg/dl (192-382) L 04/24/21 17:29 Total Bilirubin 0.20 mg/dL (0.1-1.2) 05/03/21 04:00 Direct Bilirubin < 0.2 mg/dL (0-0.2) 04/29/21 04:00 Indirect Bilirubin 0.1 mg/dL 04/29/21 04:00 AST 53 units/L (5-40) H 05/03/21 04:00 ALT 55 units/L (7-56) 05/03/21 04:00 Alkaline Phosphatase 149 units/L (35-129) H 05/03/21 04:00 Ammonia 29.0 umol/L (25-60) 04/20/21 17:10 Total Creatine Kinase 1000 units/L (30-135) H 04/27/21 07:43 CK-MB (CK-2) 36.0 ng/mL (0.0-4.0) H 04/20/21 17:10 CK-MB (CK-2) Rel Index 0.9 (0-4) 04/20/21 17:10 Troponin T 0.021 ng/mL (0.00-0.029) 04/20/21 17:10 Serum Total Protein 5.5 g/dL (6.1-8.1) L 04/22/21 08:59 Total Protein 5.2 g/dL (6.3-8.2) L 05/03/21 04:00 Albumin 1.5 g/dL (3.9-5) L 05/03/21 04:00 Albumin/Globulin Ratio 0.4 % 05/03/21 04:00 Dmjyy-2-Dkvvbtucu 0.6 g/dL (0.2-0.3) H 04/22/21 08:59 Xbleq-5-Txeboqmho 1.0 g/dL (0.5-0.9) H 04/22/21 08:59 Beta Globulins 0.3 g/dL (0.2-0.5) 04/22/21 08:59 Gamma Globulins 0.6 g/dL (0.8-1.7) L 04/22/21 08:59 Abnorm Protein Band 1 see below 04/22/21 08:59 PEP Interpretation see below H 04/22/21 08:59 Triglycerides 80 mg/dL (2-149) 05/04/21 04:48 Cholesterol 90 mg/dL (50-199) 05/04/21 04:48 LDL Cholesterol Direct 51 mg/dL (50-130) 05/04/21 04:48 HDL Cholesterol 24 mg/dL (40-59) L 05/04/21 04:48 Cholesterol/HDL Ratio 3.75 % 05/04/21 04:48 Serotonin Release Assay See scanned result 04/24/21 17:29 TSH 6.040 mlU/mL (0.270-4.200) H 04/20/21 17:10 Free T4 0.93 ng/dL (0.76-1.46) 04/20/21 17:10 Arterial Blood Glucose 122 mg/dL (65-95) H 05/02/21 04:34 Arterial Blood Ionized Calcium 4.5 mg/dL (4.6-5.3) L 04/28/21 05:18 Urine Color Yellow (Yellow) 05/14/21 10:57 Urine Turbidity Clear (Clear) 05/14/21 10:57 Urine pH 7.0 (5.0-7.0) 05/14/21 10:57 Ur Specific [place] 1.012 (1.003-1.030) 05/14/21 10:57 Urine Protein 30 mg/dl mg/dL (Negative) 05/14/21 10:57 Urine Glucose (UA) 150 mg/dL (Negative) 05/14/21 10:57 Urine Ketones Neg mg/dL (Negative) 05/14/21 10:57 Urine Blood Sm (Negative) 05/14/21 10:57 Urine Nitrite Neg (Negative) 05/14/21 10:57 Urine Bilirubin Neg (Negative) 05/14/21 10:57 Urine Urobilinogen < 2.0 mg/dL (<2.0) 05/14/21 10:57 Ur Leukocyte Esterase Tr (Negative) 05/14/21 10:57 Urine WBC (Auto) 8.0 /HPF (0.0-6.0) H 05/14/21 10:57 Urine RBC (Auto) 9.0 /HPF (0.0-6.0) 05/14/21 10:57 U Epithel Cells (Auto) 4.0 /HPF (0-13.0) 04/29/21 13:30 Urine Bacteria (Auto) 1+ /HPF (Negative) 05/14/21 10:57 Urine WBC Clumps 3+ /HPF 04/29/21 13:30 Urine Mucus Few /HPF 05/14/21 10:57 Urine Yeast (Budding) 1+ /HPF 05/14/21 10:57 Urine Osmolality 446 Mosm/kg 04/21/21 08:01 Urine Total Volume 1700 ml 05/08/21 09:34 Urine Creatinine 56.0 mg/dL (0.1-20.0) H 05/08/21 09:34 Ur Creatinine 24 Hour 1.0 (0.8-2.8) 05/08/21 09:34 Urine Sodium 71 mmol/L 04/21/21 08:01 Urine Total Protein 12 mg/dL (5-11.8) H 04/21/21 08:01 CSF Appearance Clear 04/29/21 11:45 CSF Color Colorless 04/29/21 11:45 CSF WBC 14 /mm3 (1-10) 04/29/21 11:45 CSF RBC 324 /mm3 (0-0) 04/29/21 11:45 CSF Seg Neutrophils 50.0 % (0-6) 04/29/21 11:45 CSF Lymphocytes % 40.0 % (40-80) 04/29/21 11:45 CSF Reactive Lymphs Not Reportable 04/29/21 11:45 CSF Monocytes % 10.0 % (15-45) 04/29/21 11:45 CSF Eosinophils % Not Reportable 04/29/21 11:45 CSF Basophils Not Reportable 04/29/21 11:45 CSF Pathologist Review C 04/29/21 11:45 CSF Glucose 161 mg/dL 04/29/21 11:45 CSF Total Protein 51 mg/dL 04/29/21 11:45 Plasma/Serum Alcohol < 0.01 % (0-0.07) 04/20/21 17:10 Heparin-induced Plt Ab Negative (Negative) 04/24/21 17:29 UF Heparin High Dose 1 % Release 04/24/21 17:29 EFE UFH Low Dose 0.1 0 % Release 04/24/21 17:29 EFE UFH Low Dose 0.5 0 % Release 04/24/21 17:29 Coronavirus (PCR) Negative (Negative) 04/21/21 Unknown Hepatitis A IgM Ab Non-reactive (NonReactive) 04/27/21 12:49 Hep Bs Antigen Nonreactive (Negative) 04/27/21 12:49 Hep B Core IgM Ab Non-reactive (NonReactive) 04/27/21 12:49 Hepatitis C Antibody Non-reactive (NonReactive) 04/27/21 12:49 Blood Type O POSITIVE 05/02/21 12:00 Antibody Screen Negative 05/02/21 12:00 Crossmatch See Detail 05/02/21 12:00 Microbiology: Microbiology 05/14/21 15:05 Peripheral/Venous Blood Culture - Preliminary Culture in Progress 05/14/21 15:08 Peripheral/Venous Blood Culture - Preliminary Culture in Progress Luther/IV: Voiding Method Indwelling Catheter Active Medications - Current Medications Current Medications: Generic Name Dose Route Start Last Admin Trade Name Freq PRN Reason Stop Dose Admin Acetaminophen 650 mg 04/20/21 21:31 05/14/21 09:50 Acetaminophen 325 Mg Tab PO 650 mg Q4H PRN Administration Pain MILD(1-3)/Fever >100.5/TURCIOS Albumin Human 25 gm 05/06/21 16:06 05/06/21 16:21 Albumin Human 25% (25 Gm/100 Ml) Inj IV 25 gm MITCH PRN Administration Hypotension Albuterol 2.5 mg 04/22/21 14:49 04/23/21 15:18 Albuterol 2.5 Mg/3 Ml Nebu IH 2.5 mg Q4HRT PRN Administration Shortness Of Breath Amlodipine Besylate 5 mg 05/12/21 10:00 05/15/21 10:09 Amlodipine 5 Mg Tab PO 5 mg QDAY AZIZA Administration Lipase/Protease/Amylase 1 each 04/25/21 14:13 Lipase 10,500/Protease 25,000/Amylase 43,750 (Units) Dr Vasquez FEEDTUBE PRN PRN For Clogged Feeding Tube Aspirin 81 mg 05/04/21 10:00 05/15/21 10:09 Aspirin 81 Mg Tab Chew FEEDTUBE 81 mg QDAY AZIZA Administration Atorvastatin Calcium 40 mg 05/04/21 22:00 05/14/21 22:57 Atorvastatin 40 Mg Tab FEEDTUBE 40 mg QHS AZIZA Administration Dextrose 50 ml 04/24/21 11:36 Dextrose 50% In Water (25gm) 50 Ml Syringe IV Q30MIN PRN Hypoglycemia Protocol Famotidine 10 mg 04/27/21 10:00 05/15/21 10:09 Famotidine 10 Mg Tab FEEDTUBE 10 mg BID AZIZA Administration Heparin Sodium (Porcine) 5,000 unit 05/10/21 22:00 05/15/21 10:09 Heparin 5,000 Unit/1 Ml Vial SUB-Q 5,000 unit Q12HR AZIZA Administration Hydrophilic Ointment 1 applic 04/26/21 11:16 Lip Therapy Vaseline TP Q2HR PRN Dry Lips Potassium Phosphate 30 mmol/ 510 mls @ 85 mls/hr 05/15/21 08:15 05/15/21 10:08 Sodium Chloride IV 05/15/21 14:14 85 mls/hr ONCE ONE Administration Insulin Human Lispro 0 unit 04/25/21 18:00 05/15/21 06:11 Insulin Lispro 100 Unit/Ml SUB-Q 3 unit Q6HR AZIZA Administration Protocol Labetalol HCl 20 mg 05/12/21 11:34 05/12/21 21:35 Labetalol 20 Mg/4 Ml Inj IV 20 mg Q4H PRN Administration SBP >/=170 Levothyroxine Sodium 50 mcg 05/03/21 06:00 05/15/21 06:11 Levothyroxine 50 Mcg Tab PO 50 mcg DAILY@0600 AZIZA Administration Lorazepam 1 mg 04/26/21 11:15 05/12/21 16:27 Lorazepam 2 Mg/Ml Vial IV 1 mg Q4H PRN Administration Sedation Metoclopramide HCl 5 mg 04/20/21 21:31 Metoclopramide 10 Mg/2 Ml Inj IV Q6H PRN Nausea And Vomiting Multi-Ingred Cream/Lotion/Oil/Oint 1 applic 04/26/21 11:16 Mineral Oil/Petrolatum, White Ophth Oint 3.5 Gm OU Q4HR PRN Dry Eye(s) Ondansetron HCl 4 mg 04/20/21 21:31 Ondansetron 4 Mg/2 Ml Inj IV Q8H PRN Nausea And Vomiting Senna/Docusate Sodium 1 tab 04/26/21 22:00 05/15/21 10:09 Sennosides/Docusate Sodium 8.6/50 Mg Tab FEEDTUBE 1 tab BID AZIZA Administration Simple Syrup 15 ml 04/25/21 14:13 Simple Syrup 15 Ml FEEDTUBE PRN PRN Hypoglycemia Simple Syrup 30 ml 04/25/21 14:13 Simple Syrup 15 Ml FEEDTUBE PRN PRN Hypoglycemia Sodium Bicarbonate 325 mg 04/25/21 14:13 04/27/21 13:00 Sodium Bicarbonate 325 Mg Tab FEEDTUBE 325 mg PRN PRN Administration For Clogged Feeding Tube Sodium Bicarbonate 1,300 mg 04/27/21 14:00 05/15/21 10:11 Sodium Bicarbonate 650 Mg Tab PO 1,300 mg TID AZIZA Administration Sodium Chloride 10 ml 04/20/21 22:00 05/15/21 10:10 Sodium Chloride 0.9% 10 Ml Flush Syringe IV 10 ml BID AZIZA Administration Sodium Chloride 10 ml 04/20/21 21:31 Sodium Chloride 0.9% 10 Ml Flush Syringe IV PRN PRN LINE FLUSH Nutrition/Malnutrition Assess - Dietary Evaluation Nutrition/Malnutrition Findings: Nutrition Notes Start: 04/21/21 12:15 Freq: Status: Active Protocol: Document 05/13/21 15:36 TAMMY (Rec: 05/13/21 15:47 [email or web address] [id number]) Nutrition Notes Initial or Follow up Reassessment Current Diagnosis Sepsis,Respiratory Failure, Stroke Other Pertinent Diagnosis Acute metabolic encephalopathy , pneu, UTI Current Diet NPO Labs/Tests BUN 30 Mg 1.6 Pertinent Medications Mag sulfate x 1 dose Height 5 ft 2 in Weight 72.4 kg [place] Body Weight (kg) 50.00 BMI 29.2 Weight Status Overweight Subjective/Other Information Pt remains on vent support. TF off; pt scheduled for trach and PEG placement today. Unable to place PEG sec to suspected anatomical abnormality. Interventional radiology consulted for PEG placement. Per nephrology, SYED resolving; no indication for HD as VasCath has been removed. Minimum of two criteria No #1 Nutrition Diagnosis Inadequate oral intake Diagnosis Progress(for reassessment Continues documentation) Is patient on ventilator? Yes Is Patient Ambulatory and/or Out of Bed No REE-([place]-confined to bed) 6021.850 Calculation Used for Recommendations [place] Additional Notes Pro needs 1.2-2g/k-145g/ day Fluid needs 1ml/kcal Nutrition Intervention Nutrition Support: When feasible, resume TF, but change formula to Glucerna 1.2 at 50ml/hr with 80ml water flush q4h. Goal #1 Resume TF to meet nutrient needs Follow-Up By: 05/16/21 Additional Comments F/U: PEG placement, TF restart with Glucerna 1.2, vent status <RUPAL VIZCAINO - Last Filed: 05/16/21 07:19> Assessment and Plan Assessment and plan: I saw and evaluated the patient. I agree with the findings and the plan of care as documented in the Nurse Practitioner's~note, with the following corrections and additions. Hospitalist Physical - Constitutional Vitals: Temp Pulse Resp BP Pulse Ox 99.5 F 104 H 14 116/68 97 05/16/21 04:00 05/16/21 06:00 05/16/21 06:00 05/16/21 06:00 05/16/21 06:00 HEART Score - HEART Score Troponin: Troponin T 0.021 ng/mL (0.00-0.029) 04/20/21 17:10 Results - Labs CBC & Chem 7: 05/16/21 04:24 05/16/21 04:24 Labs: Laboratory Last Values WBC 13.0 K/mm3 (4.5-11.0) H 05/16/21 04:24 RBC 2.79 M/mm3 (3.65-5.03) L 05/16/21 04:24 Hgb 7.6 gm/dl (10.1-14.3) L 05/16/21 04:24 Hct 23.7 % (30.3-42.9) L 05/16/21 04:24 MCV 85 fl (79-97) 05/16/21 04:24 MCH 27 pg (28-32) L 05/16/21 04:24 MCHC 32 % (30-34) 05/16/21 04:24 RDW 15.9 % (13.2-15.2) H 05/16/21 04:24 Plt Count 422 K/mm3 (140-440) 05/16/21 04:24 Add Manual Diff Complete 04/28/21 04:00 Total Counted 100 04/28/21 04:00 Seg Neutrophils % Staffing Mgr 04/28/21 04:00 Seg Neuts % (Manual) 77.0 % (40.0-70.0) H 04/26/21 09:33 Band Neutrophils % 2.0 % 04/28/21 04:00 Lymphocytes % (Manual) 1.0 % (13.4-35.0) L 04/28/21 04:00 Reactive Lymphs % (Man) 0 % 04/28/21 04:00 Monocytes % (Manual) 1.0 % (0.0-7.3) 04/28/21 04:00 Eosinophils % (Manual) 3.0 % (0.0-4.3) 04/28/21 04:00 Metamyelocytes % 1.0 % 04/28/21 04:00 Myelocytes % 0 % 04/28/21 04:00 Promyelocytes % 0 % 04/28/21 04:00 Blast Cells % 0 % 04/28/21 04:00 Nucleated RBC % 4.0 % (0.0-0.9) H 04/28/21 04:00 Seg Neutrophils # Man 11.6 K/mm3 (1.8-7.7) H 04/28/21 04:00 Band Neutrophils # 0.3 K/mm3 04/28/21 04:00 Lymphocytes # (Manual) 0.1 K/mm3 (1.2-5.4) L 04/28/21 04:00 Abs React Lymphs (Man) 0.0 K/mm3 04/28/21 04:00 Monocytes # (Manual) 0.1 K/mm3 (0.0-0.8) 04/28/21 04:00 Eosinophils # (Manual) 0.4 K/mm3 (0.0-0.4) 04/28/21 04:00 Basophils # (Manual) 0.0 K/mm3 (0.0-0.1) 04/28/21 04:00 Metamyelocytes # 0.1 K/mm3 04/28/21 04:00 Myelocytes # 0.0 K/mm3 04/28/21 04:00 Promyelocytes # 0.0 K/mm3 04/28/21 04:00 Blast Cells # 0.0 K/mm3 04/28/21 04:00 WBC Morphology Not Reportable 04/28/21 04:00 Hypersegmented Neuts Not Reportable 04/28/21 04:00 Hyposegmented Neuts Not Reportable 04/28/21 04:00 Hypogranular Neuts Not Reportable 04/28/21 04:00 Smudge Cells Not Reportable 04/28/21 04:00 Toxic Granulation Not Reportable 04/28/21 04:00 Toxic Vacuolation Not Reportable 04/28/21 04:00 Dohle Bodies Not Reportable 04/28/21 04:00 Pelger-Huet Anomaly Not Reportable 04/28/21 04:00 Moni Rods Not Reportable 04/28/21 04:00 Platelet Estimate Consistent w auto 04/28/21 04:00 Clumped Platelets Not Reportable 04/28/21 04:00 Plt Clumps, EDTA Not Reportable 04/28/21 04:00 Large Platelets Few 04/28/21 04:00 Giant Platelets Not Reportable 04/28/21 04:00 Platelet Satelliting Not Reportable 04/28/21 04:00 Plt Morphology Comment Not Reportable 04/28/21 04:00 RBC Morphology Not Reportable 04/28/21 04:00 Dimorphic RBCs Not Reportable 04/28/21 04:00 Polychromasia Not Reportable 04/28/21 04:00 Hypochromasia Not Reportable 04/28/21 04:00 Poikilocytosis Not Reportable 04/28/21 04:00 Anisocytosis Not Reportable 04/28/21 04:00 Microcytosis Not Reportable 04/28/21 04:00 Macrocytosis Not Reportable 04/28/21 04:00 Spherocytes Not Reportable 04/28/21 04:00 Pappenheimer Bodies Not Reportable 04/28/21 04:00 Sickle Cells Not Reportable 04/28/21 04:00 Target Cells 1+ 04/28/21 04:00 Tear Drop Cells Not Reportable 04/28/21 04:00 Ovalocytes Not Reportable 04/28/21 04:00 Helmet Cells Not Reportable 04/28/21 04:00 Parkinson-Index Bodies Not Reportable 04/28/21 04:00 [place] Rings Not Reportable 04/28/21 04:00 [place] Cells Not Reportable 04/28/21 04:00 Bite Cells Not Reportable 04/28/21 04:00 Crenated Cell Not Reportable 04/28/21 04:00 Elliptocytes Not Reportable 04/28/21 04:00 Acanthocytes (Spur) Not Reportable 04/28/21 04:00 Rouleaux Not Reportable 04/28/21 04:00 Hemoglobin C Crystals Not Reportable 04/28/21 04:00 Schistocytes Not Reportable 04/28/21 04:00 Malaria parasites Not Reportable 04/28/21 04:00 Herrera Bodies Not Reportable 04/28/21 04:00 Hem Pathologist Commnt No 04/28/21 04:00 PT 14.7 Sec. (12.2-14.9) 05/13/21 04:24 INR 1.04 (0.87-1.13) 05/13/21 04:24 APTT 36.6 Sec. (24.2-36.6) 04/28/21 05:00 Heparin Anti-Xa, Unfract Negative (Negative) 04/24/21 17:29 ABG pH 7.487 (7.320-7.450) H 05/02/21 04:34 POC ABG pCO2 35.3 mmHg (32.0-48.0) 05/02/21 04:34 ABG pCO2 31.6 mm Hg 04/21/21 15:47 POC ABG pO2 78.6 mmHg (83-108) L 05/02/21 04:34 ABG pO2 168.1 mm Hg (80.0-90.0) H 04/21/21 15:47 POC ABG HCO3 26.1 05/02/21 04:34 ABG HCO3 23.3 mmol/L (20.0-26.0) 04/21/21 15:47 ABG O2 Saturation 96.0 (0-100) 05/02/21 04:34 ABG O2 Content 12.7 (0.0-44) 04/21/21 15:47 POC ABG Base Excess 2.9 05/02/21 04:34 ABG Base Excess 0.3 mmol/L (-2.0-3.0) 04/21/21 15:47 ABG Hemoglobin 11.5 (12.0-17.5) L 05/02/21 04:34 ABG Oxyhemoglobin 95.1 (94-98) 05/02/21 04:34 ABG Carboxyhemoglobin 1.0 % (0.0-5.0) 04/21/21 15:47 ABG Methemoglobin 0.3 (0.0-1.5) 05/02/21 04:34 ABG Sodium 138.6 mmol/L (136.0-145.0) 05/02/21 04:34 ABG Potassium 3.4 mmol/L (3.40-4.50) 05/02/21 04:34 ABG Chloride 105.0 mmol/L (98-107) 05/02/21 04:34 ABG Glucose 122 mg/dL (65-95) H 05/02/21 04:34 VBG pH 7.397 (7.320-7.420) 04/20/21 17:10 Oxyhemoglobin 97.5 % (95.0-99.0) 04/21/21 15:47 Carboxyhemoglobin 0.6 (0.5-1.5) 05/02/21 04:34 FiO2 100 % 04/21/21 15:47 FiO2 % 40.0 05/02/21 04:34 Sodium 144 mmol/L (137-145) 05/16/21 04:24 Potassium 3.5 mmol/L (3.6-5.0) L 05/16/21 04:24 Chloride 107.9 mmol/L (98-107) H 05/16/21 04:24 Carbon Dioxide 23 mmol/L (22-30) 05/16/21 04:24 Anion Gap 17 mmol/L 05/16/21 04:24 BUN 20 mg/dL (7-17) H 05/16/21 04:24 Creatinine 1.0 mg/dL (0.6-1.2) 05/16/21 04:24 Estimated GFR > 60 ml/min 05/16/21 04:24 BUN/Creatinine Ratio 20 % 05/16/21 04:24 Glucose 157 mg/dL (65-100) H 05/16/21 04:24 POC Glucose 157 mg/dL (70-105) H 05/16/21 05:24 Hemoglobin A1c 17.1 % (4-6) H 04/22/21 15:55 Lactic Acid 1.90 mmol/L (0.7-2.0) 04/20/21 19:56 Calcium 8.3 mg/dL (8.4-10.2) L 05/16/21 04:24 Phosphorus 3.00 mg/dL (2.5-4.5) D 05/16/21 04:24 Magnesium 1.90 mg/dL (1.7-2.3) 05/16/21 04:24 Iron 62 ug/dL (37-170) 04/24/21 17:29 TIBC 285 mcg/dL (250-450) 04/24/21 17:29 % Saturation 21.75 % 04/24/21 17:29 Transferrin 112 mg/dl (192-382) L 04/24/21 17:29 Total Bilirubin 0.20 mg/dL (0.1-1.2) 05/03/21 04:00 Direct Bilirubin < 0.2 mg/dL (0-0.2) 04/29/21 04:00 Indirect Bilirubin 0.1 mg/dL 04/29/21 04:00 AST 53 units/L (5-40) H 05/03/21 04:00 ALT 55 units/L (7-56) 05/03/21 04:00 Alkaline Phosphatase 149 units/L (35-129) H 05/03/21 04:00 Ammonia 29.0 umol/L (25-60) 04/20/21 17:10 Total Creatine Kinase 1000 units/L (30-135) H 04/27/21 07:43 CK-MB (CK-2) 36.0 ng/mL (0.0-4.0) H 04/20/21 17:10 CK-MB (CK-2) Rel Index 0.9 (0-4) 04/20/21 17:10 Troponin T 0.021 ng/mL (0.00-0.029) 04/20/21 17:10 Serum Total Protein 5.5 g/dL (6.1-8.1) L 04/22/21 08:59 Total Protein 5.2 g/dL (6.3-8.2) L 05/03/21 04:00 Albumin 1.5 g/dL (3.9-5) L 05/03/21 04:00 Albumin/Globulin Ratio 0.4 % 05/03/21 04:00 [id number]-[id number] 0.6 g/dL (0.2-0.3) H 04/22/21 08:59 [id number]-7-Sijecibsf 1.0 g/dL (0.5-0.9) H 04/22/21 08:59 Beta Globulins 0.3 g/dL (0.2-0.5) 04/22/21 08:59 Gamma Globulins 0.6 g/dL (0.8-1.7) L 04/22/21 08:59 Abnorm Protein Band 1 see below 04/22/21 08:59 PEP Interpretation see below H 04/22/21 08:59 Triglycerides 80 mg/dL (2-149) 05/04/21 04:48 Cholesterol 90 mg/dL (50-199) 05/04/21 04:48 LDL Cholesterol Direct 51 mg/dL (50-130) 05/04/21 04:48 HDL Cholesterol 24 mg/dL (40-59) L 05/04/21 04:48 Cholesterol/HDL Ratio 3.75 % 05/04/21 04:48 Serotonin Release Assay See scanned result 04/24/21 17:29 TSH 6.040 mlU/mL (0.270-4.200) H 04/20/21 17:10 Free T4 0.93 ng/dL (0.76-1.46) 04/20/21 17:10 Arterial Blood Glucose 122 mg/dL (65-95) H 05/02/21 04:34 Arterial Blood Ionized Calcium 4.5 mg/dL (4.6-5.3) L 04/28/21 05:18 Urine Color Yellow (Yellow) 05/14/21 10:57 Urine Turbidity Clear (Clear) 05/14/21 10:57 Urine pH 7.0 (5.0-7.0) 05/14/21 10:57 Ur Specific [place] 1.012 (1.003-1.030) 05/14/21 10:57 Urine Protein 30 mg/dl mg/dL (Negative) 05/14/21 10:57 Urine Glucose (UA) 150 mg/dL (Negative) 05/14/21 10:57 Urine Ketones Neg mg/dL (Negative) 05/14/21 10:57 Urine Blood Sm (Negative) 05/14/21 10:57 Urine Nitrite Neg (Negative) 05/14/21 10:57 Urine Bilirubin Neg (Negative) 05/14/21 10:57 Urine Urobilinogen < 2.0 mg/dL (<2.0) 05/14/21 10:57 Ur Leukocyte Esterase Tr (Negative) 05/14/21 10:57 Urine WBC (Auto) 8.0 /HPF (0.0-6.0) H 05/14/21 10:57 Urine RBC (Auto) 9.0 /HPF (0.0-6.0) 05/14/21 10:57 U Epithel Cells (Auto) 4.0 /HPF (0-13.0) 04/29/21 13:30 Urine Bacteria (Auto) 1+ /HPF (Negative) 05/14/21 10:57 Urine WBC Clumps 3+ /HPF 04/29/21 13:30 Urine Mucus Few /HPF 05/14/21 10:57 Urine Yeast (Budding) 1+ /HPF 05/14/21 10:57 Urine Osmolality 446 Mosm/kg 04/21/21 08:01 Urine Total Volume 1700 ml 05/08/21 09:34 Urine Creatinine 56.0 mg/dL (0.1-20.0) H 05/08/21 09:34 Ur Creatinine 24 Hour 1.0 (0.8-2.8) 05/08/21 09:34 Urine Sodium 71 mmol/L 04/21/21 08:01 Urine Total Protein 12 mg/dL (5-11.8) H 04/21/21 08:01 CSF Appearance Clear 04/29/21 11:45 CSF Color Colorless 04/29/21 11:45 CSF WBC 14 /mm3 (1-10) 04/29/21 11:45 CSF RBC 324 /mm3 (0-0) 04/29/21 11:45 CSF Seg Neutrophils 50.0 % (0-6) 04/29/21 11:45 CSF Lymphocytes % 40.0 % (40-80) 04/29/21 11:45 CSF Reactive Lymphs Not Reportable 04/29/21 11:45 CSF Monocytes % 10.0 % (15-45) 04/29/21 11:45 CSF Eosinophils % Not Reportable 04/29/21 11:45 CSF Basophils Not Reportable 04/29/21 11:45 CSF Pathologist Review C 04/29/21 11:45 CSF Glucose 161 mg/dL 04/29/21 11:45 CSF Total Protein 51 mg/dL 04/29/21 11:45 Plasma/Serum Alcohol < 0.01 % (0-0.07) 04/20/21 17:10 Heparin-induced Plt Ab Negative (Negative) 04/24/21 17:29 UF Heparin High Dose 1 % Release 04/24/21 17:29 EFE UFH Low Dose 0.1 0 % Release 04/24/21 17:29 EFE UFH Low Dose 0.5 0 % Release 04/24/21 17:29 Coronavirus (PCR) Negative (Negative) 04/21/21 Unknown Hepatitis A IgM Ab Non-reactive (NonReactive) 04/27/21 12:49 Hep Bs Antigen Nonreactive (Negative) 04/27/21 12:49 Hep B Core IgM Ab Non-reactive (NonReactive) 04/27/21 12:49 Hepatitis C Antibody Non-reactive (NonReactive) 04/27/21 12:49 Blood Type O POSITIVE 05/02/21 12:00 Antibody Screen Negative 05/02/21 12:00 Crossmatch See Detail 05/02/21 12:00 Microbiology: Microbiology 05/14/21 15:05 Peripheral/Venous Blood Culture - Preliminary NO GROWTH AFTER 24 HOURS 05/14/21 15:08 Peripheral/Venous Blood Culture - Preliminary NO GROWTH AFTER 24 HOURS Luther/IV: Voiding Method Indwelling Catheter Active Medications - Current Medications Current Medications: Generic Name Dose Route Start Last Admin Trade Name Freq PRN Reason Stop Dose Admin Acetaminophen 650 mg 04/20/21 21:31 05/14/21 09:50 Acetaminophen 325 Mg Tab PO 650 mg Q4H PRN Administration Pain MILD(1-3)/Fever >100.5/TURCIOS Albumin Human 25 gm 05/06/21 16:06 05/06/21 16:21 Albumin Human 25% (25 Gm/100 Ml) Inj IV 25 gm MITCH PRN Administration Hypotension Albuterol 2.5 mg 04/22/21 14:49 04/23/21 15:18 Albuterol 2.5 Mg/3 Ml Nebu IH 2.5 mg Q4HRT PRN Administration Shortness Of Breath Amlodipine Besylate 5 mg 05/12/21 10:00 05/15/21 10:09 Amlodipine 5 Mg Tab PO 5 mg QDAY AZIZA Administration Lipase/Protease/Amylase 1 each 04/25/21 14:13 Lipase 10,500/Protease 25,000/Amylase 43,750 (Units) Dr Vasquez FEEDTUBE PRN PRN For Clogged Feeding Tube Aspirin 81 mg 05/04/21 10:00 05/15/21 10:09 Aspirin 81 Mg Tab Chew FEEDTUBE 81 mg QDAY AZIZA Administration Atorvastatin Calcium 40 mg 05/04/21 22:00 05/15/21 21:50 Atorvastatin 40 Mg Tab FEEDTUBE 40 mg QHS AZIZA Administration Dextrose 50 ml 04/24/21 11:36 Dextrose 50% In Water (25gm) 50 Ml Syringe IV Q30MIN PRN Hypoglycemia Protocol Famotidine 10 mg 04/27/21 10:00 05/15/21 21:50 Famotidine 10 Mg Tab FEEDTUBE 10 mg BID AZIZA Administration Heparin Sodium (Porcine) 5,000 unit 05/10/21 22:00 05/15/21 21:50 Heparin 5,000 Unit/1 Ml Vial SUB-Q 5,000 unit Q12HR AZIZA Administration Hydrophilic Ointment 1 applic 04/26/21 11:16 Lip Therapy Vaseline TP Q2HR PRN Dry Lips Insulin Human Lispro 0 unit 04/25/21 18:00 05/16/21 06:29 Insulin Lispro 100 Unit/Ml SUB-Q 3 unit Q6HR AZIZA Administration Protocol Labetalol HCl 20 mg 05/12/21 11:34 05/12/21 21:35 Labetalol 20 Mg/4 Ml Inj IV 20 mg Q4H PRN Administration SBP >/=170 Levothyroxine Sodium 50 mcg 05/03/21 06:00 05/16/21 06:29 Levothyroxine 50 Mcg Tab PO 50 mcg DAILY@0600 AZIZA Administration Lorazepam 1 mg 04/26/21 11:15 05/12/21 16:27 Lorazepam 2 Mg/Ml Vial IV 1 mg Q4H PRN Administration Sedation Metoclopramide HCl 5 mg 04/20/21 21:31 Metoclopramide 10 Mg/2 Ml Inj IV Q6H PRN Nausea And Vomiting Multi-Ingred Cream/Lotion/Oil/Oint 1 applic 04/26/21 11:16 Mineral Oil/Petrolatum, White Ophth Oint 3.5 Gm OU Q4HR PRN Dry Eye(s) Ondansetron HCl 4 mg 04/20/21 21:31 Ondansetron 4 Mg/2 Ml Inj IV Q8H PRN Nausea And Vomiting Senna/Docusate Sodium 1 tab 04/26/21 22:00 05/15/21 21:50 Sennosides/Docusate Sodium 8.6/50 Mg Tab FEEDTUBE 1 tab BID AZIZA Administration Simple Syrup 15 ml 04/25/21 14:13 Simple Syrup 15 Ml FEEDTUBE PRN PRN Hypoglycemia Simple Syrup 30 ml 04/25/21 14:13 Simple Syrup 15 Ml FEEDTUBE PRN PRN Hypoglycemia Sodium Bicarbonate 325 mg 04/25/21 14:13 04/27/21 13:00 Sodium Bicarbonate 325 Mg Tab FEEDTUBE 325 mg PRN PRN Administration For Clogged Feeding Tube Sodium Bicarbonate 1,300 mg 04/27/21 14:00 05/15/21 20:56 Sodium Bicarbonate 650 Mg Tab PO 1,300 mg TID AZIZA Administration Sodium Chloride 10 ml 04/20/21 22:00 05/15/21 21:50 Sodium Chloride 0.9% 10 Ml Flush Syringe IV 10 ml BID AZIZA Administration Sodium Chloride 10 ml 04/20/21 21:31 Sodium Chloride 0.9% 10 Ml Flush Syringe IV PRN PRN LINE FLUSH Nutrition/Malnutrition Assess - Dietary Evaluation Nutrition/Malnutrition Findings: Nutrition Notes Start: 04/21/21 12:15 Freq: Status: Active Protocol: Document 05/13/21 15:36 TAMMY (Rec: 05/13/21 15:47 TAMMY [id number]) Nutrition Notes Initial or Follow up Reassessment Current Diagnosis Sepsis,Respiratory Failure, Stroke Other Pertinent Diagnosis Acute metabolic encephalopathy , pneu, UTI Current Diet NPO Labs/Tests BUN 30 Mg 1.6 Pertinent Medications Mag sulfate x 1 dose Height 5 ft 2 in Weight 72.4 kg [place] Body Weight (kg) 50.00 BMI 29.2 Weight Status Overweight Subjective/Other Information Pt remains on vent support. TF off; pt scheduled for trach and PEG placement today. Unable to place PEG sec to suspected anatomical abnormality. Interventional radiology consulted for PEG placement. Per nephrology, SYED resolving; no indication for HD as VasCath has been removed. Minimum of two criteria No #1 Nutrition Diagnosis Inadequate oral intake Diagnosis Progress(for reassessment Continues documentation) Is patient on ventilator? Yes Is Patient Ambulatory and/or Out of Bed No REE-([place]-confined to bed) [phone] [facility] Additional Notes Pro needs 1.2-2g/k-145g/ day Fluid needs 1ml/kcal Nutrition Intervention Nutrition Support: When feasible, resume TF, but change formula to Glucerna 1.2 at 50ml/hr with 80ml water flush q4h. Goal #1 Resume TF to meet nutrient needs Follow-Up By: 05/16/21 Additional Comments F/U: PEG placement, TF restart with Glucerna 1.2, vent status
--- NOTE | 2021-05-15 12:25 | Progress Note ---
Assessment and Plan Initialization Date: 05/13/21 11:01 Assessment and Plan 80 y/o female with altered mental state, severe electrolyte imbalance with presumptive acute renal failure and hypothermia. 05/15/2021: No significant change. Has trach on mechanical ventilator currently at 30% FiO2. CT of the abdomen was done lower lung field showed persistent infiltrate. Also has small bilateral pleural effusion probably not significant. Await peg tube placement tomorrow and hopefully transfer to LTAC in the near future 05/14/2021:. Had trach done yesterday. However PEG was not placed. Await PEG placement prior to transfer to LTAC. Chest x-ray continues to show some patchy infiltrate even though slightly improved 05/13/21: Trach today. Per CM transfer to LTACH tomorrow. Supportive care 05/12/21: Daily PSV trials. NPO after midnight and chemistry in am. Trach tomorrow and then transfer over the weekend if all goes well. 05/11/21: Awaiting trach and peg placement. Discontinue vascath. Daily pSV trials. 05/10/21: Long discussion over phone with POA. Discussed what I felt was progno sis. Per POA, feels best thing to do at this moment is proceed with trach and peg. Will consult surgery for this. Spoke with renal and they feel she likely will not need HD anymore. Will keep catheter at least another 24-36 hours and likely remove sometime tomorrow. Continue daily PSV and other supportive measures. Placement post Trach. 05/09/21: Will reach out to neuro for more help. Read their note this am but need a definite plan. Would like to meet/talk with POA about next steps but need a better idea of what her neuro prognosis is. Continue daily PSV trials. Prognosis overall appears to be very guarded to poor. 05/08/21: Continue supportive measures. HD per renal. Follow up neuro recs tomorrow. Need to start talking with family about next steps but need neuro input. Daily pSV to document failing. 05/07/21: Continue supportive measures. HD per renal. Follow up neuro recs tomorrow. Need to start talking with family about next steps but need neuro input. 05/06/21: Await neurology recs now that LINCOLN Could not be done. Based on neurology note, no direct source for stroke on MRA. Patient was seen on this day and can be confirmed by staff. Not sure why my note did not save. 05/05/21: follow up neurology notes. They are discussing with cards the LINCOLN. Continue vent support. Poor prognosis. 05/04/21: follow up MRA when done. LINCOLN pending. HD per renal. Daily PSV trials as tolerated. Poor prognosis given MRI findings and lack of responsiveness off sedation. 05/03/21: Follow up Neurology recs for today. Attempt PSV trials. HD on yesterday. Very very guarded prognosis. 05/02/21: MRI today. Repeat cultures. HD per renal. Once MRI results back w ill discuss with Neurosurgery to see if anything further should be done. Abx per ID. Overall prognosis is very guarded to poor. 04/29/21: Will reach out to neuro after 24-48 hours post spinal tap pending any change in mentation. If improvement, may need to consider shunt placement. If not, not sure that there is anything they can offer. if they still want MRI, then can obtain. Now spiking temps. Blood cultures and UA. Given time frame in Hospital will place on Vanc and Cefepime. Guarded prognosis. HD per renal. Given anasarca, will ask renal about trying to remove volume. 04/28/21: Will discuss with renal about HD again today. MRI vs LP (large amount). Coags are ok. Will attempt to get at least one of these done today. Patient is still on 80% but sat is 100. Will ask ASSESSMENT CLINICIAN about placing ART line today. Wean FiO2 as tolerated. Guarded prognosis. 04/27/21: HD today per renal. Vascath placed and awaiting CXR for conformation of good placement (done and good). Vent weaning as tolerated for sats >88%. ABG in the AM. Will check Coags in the am and hopeful these are stable. Platelets need to above 50K. Would like to do large volume spinal tap to see if this helps with mentation. Will also obtain MRI once oxygen requirement improves. 04/26/21: WIll electively intubate and then obtain MRI. Pending MRI results, will likely order large volume spinal tap to assess if NPH is a factor or not. Guarded prognosis. Electrolytes are improving. 04/25/21: Continue to follow renal recs. Will reach out to POA either today or tomorrow for further updates. Follow up renal recs. Monitor electrolytes and renal function. Guarded prognosis. 1. Neuro-reached out to neuro surgery, placed consult in regards to CT findings 2. Renal-appreciate help and recs, will follow IV hydration recommendations 3. Blood cultures. Urine was negative 4. Jorge Freidaer for temp Guarded prognosis CCT 31 minutes. Subjective Date of service: 05/15/21 Principal diagnosis: Acute respiratory failure Interval history: No significant change remains on mechanical ventilator. Has trach await PEG Objective Vital Signs - 12hr 05/15/21 05/15/21 05/15/21 01:00 01:07 02:00 Temperature Pulse Rate 117 H 115 H Pulse Rate [ From Monitor] Pulse Rate [ Left Dorsalis Pedis] Pulse Rate [ Left Radial] Pulse Rate [ Right Dorsalis Pedis] Pulse Rate [ Right Radial] Respiratory 17 27 H Rate Blood Pressure 150/68 139/76 O2 Sat by Pulse 97 97 Oximetry O2 Sat by Pulse 97 Oximetry [ Assessment] 05/15/21 05/15/21 05/15/21 03:00 04:00 04:55 Temperature 100.4 F H Pulse Rate 113 H 107 H 110 H Pulse Rate [ From Monitor] Pulse Rate [ Left Dorsalis Pedis] Pulse Rate [ Left Radial] Pulse Rate [ Right Dorsalis Pedis] Pulse Rate [ Right Radial] Respiratory 28 H 24 Rate Blood Pressure 145/76 153/79 153/79 O2 Sat by Pulse 97 97 98 Oximetry O2 Sat by Pulse Oximetry [ Assessment] 05/15/21 05/15/21 05/15/21 05:00 06:00 07:00 Temperature Pulse Rate 114 H 110 H 109 H Pulse Rate [ From Monitor] Pulse Rate [ Left Dorsalis Pedis] Pulse Rate [ Left Radial] Pulse Rate [ Right Dorsalis Pedis] Pulse Rate [ Right Radial] Respiratory 20 14 15 Rate Blood Pressure 142/61 135/68 137/63 O2 Sat by Pulse 98 98 98 Oximetry O2 Sat by Pulse Oximetry [ Assessment] 05/15/21 05/15/21 05/15/21 07:10 07:40 08:00 Temperature 100.4 F H 100.4 F H Pulse Rate 100 H Pulse Rate [ 111 H From Monitor] Pulse Rate [ 110 H Left Dorsalis Pedis] Pulse Rate [ 110 H Left Radial] Pulse Rate [ 110 H Right Dorsalis Pedis] Pulse Rate [ 110 H Right Radial] Respiratory 14 Rate Blood Pressure 129/66 O2 Sat by Pulse 98 98 Oximetry O2 Sat by Pulse 98 Oximetry [ Assessment] 05/15/21 05/15/21 05/15/21 08:20 08:21 09:00 Temperature Pulse Rate 105 H 102 H Pulse Rate [ From Monitor] Pulse Rate [ Left Dorsalis Pedis] Pulse Rate [ Left Radial] Pulse Rate [ Right Dorsalis Pedis] Pulse Rate [ Right Radial] Respiratory 14 Rate Blood Pressure 137/63 129/66 O2 Sat by Pulse 97 Oximetry O2 Sat by Pulse Oximetry [ Assessment] 05/15/21 05/15/21 10:09 12:18 Temperature 99.6 F Pulse Rate 106 H Pulse Rate [ From Monitor] Pulse Rate [ Left Dorsalis Pedis] Pulse Rate [ Left Radial] Pulse Rate [ Right Dorsalis Pedis] Pulse Rate [ Right Radial] Respiratory Rate Blood Pressure 137/73 O2 Sat by Pulse Oximetry O2 Sat by Pulse Oximetry [ Assessment] Constitutional: other (critically ill, somnolent, on vent) Eyes: non-icteric ENT: oropharynx dry Effort: other (tachypneic but not labored) Ascultation: Bilateral: clear Cardiovascular: regular rate and rhythm Gastrointestinal: normoactive bowel sounds Integumentary: normal Extremities: no cyanosis, no edema, pink and warm Neurologic: unable to assess Psychiatric: other (unable to assess) CBC and BMP: 05/15/21 04:09 05/15/21 04:09 ABG, PT/INR, D-dimer: ABG ABG pH 7.487 (7.320-7.450) H 05/02/21 04:34 POC ABG pCO2 35.3 mmHg (32.0-48.0) 05/02/21 04:34 ABG pCO2 31.6 mm Hg 04/21/21 15:47 POC ABG pO2 78.6 mmHg (83-108) L 05/02/21 04:34 ABG pO2 168.1 mm Hg (80.0-90.0) H 04/21/21 15:47 POC ABG HCO3 26.1 05/02/21 04:34 ABG O2 Saturation 96.0 (0-100) 05/02/21 04:34 PT/INR, D-dimer PT 14.7 Sec. (12.2-14.9) 05/13/21 04:24 INR 1.04 (0.87-1.13) 05/13/21 04:24 Abnormal lab findings: Abnormal Labs 04/20/21 04/20/21 04/20/21 17:10 17:10 17:10 WBC 17.4 H RBC 5.19 H Hgb Hct 46.8 H MCH 27 L RDW 17.2 H Plt Count Seg Neuts % (Manual) 98.0 H Lymphocytes % (Manual) 2.0 L Nucleated RBC % 1.0 H Seg Neutrophils # Man 17.1 H Lymphocytes # (Manual) 0.3 L PT ABG pH POC ABG pCO2 POC ABG pO2 ABG pO2 ABG O2 Saturation ABG Base Excess ABG Hemoglobin ABG Oxyhemoglobin ABG Potassium ABG Chloride ABG Glucose Oxyhemoglobin Carboxyhemoglobin Sodium 173 H* Potassium Chloride 132.9 H Carbon Dioxide 17 L BUN 120 H Creatinine 4.2 H Glucose 762 H* POC Glucose Hemoglobin A1c Lactic Acid Calcium Phosphorus Magnesium 3.80 H Transferrin AST 72 H ALT 63 H Alkaline Phosphatase 148 H Total Creatine Kinase 3697 H CK-MB (CK-2) 36.0 H Serum Total Protein Total Protein Albumin 2.2 L Cucms-8-Rjkervylp Bsobl-6-Cfpmplrhw Gamma Globulins PEP Interpretation HDL Cholesterol TSH Arterial Blood Glucose Arterial Blood Ionized Calcium Urine WBC (Auto) Urine Creatinine Urine Total Protein Crossmatch 04/20/21 04/20/21 04/20/21 17:10 17:10 18:55 WBC RBC Hgb Hct MCH RDW Plt Count Seg Neuts % (Manual) Lymphocytes % (Manual) Nucleated RBC % Seg Neutrophils # Man Lymphocytes # (Manual) PT ABG pH POC ABG pCO2 POC ABG pO2 ABG pO2 ABG O2 Saturation ABG Base Excess ABG Hemoglobin ABG Oxyhemoglobin ABG Potassium ABG Chloride ABG Glucose Oxyhemoglobin Carboxyhemoglobin Sodium Potassium Chloride Carbon Dioxide BUN Creatinine Glucose POC Glucose 574 H Hemoglobin A1c Lactic Acid 2.60 H* Calcium Phosphorus Magnesium Transferrin AST ALT Alkaline Phosphatase Total Creatine Kinase CK-MB (CK-2) Serum Total Protein Total Protein Albumin Rmfvd-8-Gfreldfwg Jiwhz-4-Xixhwvoua Gamma Globulins PEP Interpretation HDL Cholesterol TSH 6.040 H Arterial Blood Glucose Arterial Blood Ionized Calcium Urine WBC (Auto) Urine Creatinine Urine Total Protein Crossmatch 04/20/21 04/20/21 04/20/21 22:12 22:58 22:58 WBC RBC Hgb Hct MCH RDW Plt Count Seg Neuts % (Manual) Lymphocytes % (Manual) Nucleated RBC % Seg Neutrophils # Man Lymphocytes # (Manual) PT ABG pH POC ABG pCO2 POC ABG pO2 ABG pO2 ABG O2 Saturation ABG Base Excess ABG Hemoglobin ABG Oxyhemoglobin ABG Potassium ABG Chloride ABG Glucose Oxyhemoglobin Carboxyhemoglobin Sodium 172 H* Potassium 3.2 L Chloride 134.2 H Carbon Dioxide 17 L BUN 112 H Creatinine 3.8 H Glucose 803 H* POC Glucose 554 H Hemoglobin A1c Lactic Acid Calcium 8.3 L Phosphorus Magnesium 3.50 H Transferrin AST ALT Alkaline Phosphatase Total Creatine Kinase CK-MB (CK-2) Serum Total Protein Total Protein Albumin Khswc-6-Rmznnfvsl Ldjlz-8-Gxlwkmlkv Gamma Globulins PEP Interpretation HDL Cholesterol TSH Arterial Blood Glucose Arterial Blood Ionized Calcium Urine WBC (Auto) Urine Creatinine Urine Total Protein Crossmatch 04/21/21 04/21/21 04/21/21 00:14 00:22 02:01 WBC RBC Hgb Hct MCH RDW Plt Count Seg Neuts % (Manual) Lymphocytes % (Manual) Nucleated RBC % Seg Neutrophils # Man Lymphocytes # (Manual) PT ABG pH POC ABG pCO2 POC ABG pO2 ABG pO2 ABG O2 Saturation ABG Base Excess ABG Hemoglobin ABG Oxyhemoglobin ABG Potassium ABG Chloride ABG Glucose Oxyhemoglobin Carboxyhemoglobin Sodium 176 H* 175 H* Potassium 2.9 L* 3.0 L Chloride 139.9 H 136.2 H Carbon Dioxide 17 L 19 L BUN 113 H 112 H Creatinine 3.9 H 3.6 H Glucose 729 H* 582 H* POC Glucose > 600 H Hemoglobin A1c Lactic Acid Calcium Phosphorus Magnesium Transferrin AST ALT Alkaline Phosphatase Total Creatine Kinase CK-MB (CK-2) Serum Total Protein Total Protein Albumin Xdmhe-6-Uztipgrvi Hkjqz-3-Pmynyfpkg Gamma Globulins PEP Interpretation HDL Cholesterol TSH Arterial Blood Glucose Arterial Blood Ionized Calcium Urine WBC (Auto) Urine Creatinine Urine Total Protein Crossmatch 04/21/21 04/21/21 04/21/21 03:11 03:20 03:41 WBC 14.1 H RBC Hgb Hct MCH 27 L RDW 16.8 H Plt Count 114 L Seg Neuts % (Manual) 97.0 H Lymphocytes % (Manual) 3.0 L Nucleated RBC % 1.0 H Seg Neutrophils # Man 13.7 H Lymphocytes # (Manual) 0.4 L PT ABG pH POC ABG pCO2 POC ABG pO2 ABG pO2 52.3 L ABG O2 Saturation 84.5 L ABG Base Excess -2.9 L ABG Hemoglobin ABG Oxyhemoglobin ABG Potassium ABG Chloride ABG Glucose Oxyhemoglobin 82.9 L Carboxyhemoglobin Sodium Potassium Chloride Carbon Dioxide BUN Creatinine Glucose POC Glucose 404 H Hemoglobin A1c Lactic Acid Calcium Phosphorus Magnesium Transferrin AST ALT Alkaline Phosphatase Total Creatine Kinase CK-MB (CK-2) Serum Total Protein Total Protein Albumin Fsrqr-5-Isxehaijw Xuhdy-3-Esvsvrwwf Gamma Globulins PEP Interpretation HDL Cholesterol TSH Arterial Blood Glucose Arterial Blood Ionized Calcium Urine WBC (Auto) Urine Creatinine Urine Total Protein Crossmatch 04/21/21 04/21/21 04/21/21 03:41 04:24 05:45 WBC RBC Hgb Hct MCH RDW Plt Count Seg Neuts % (Manual) Lymphocytes % (Manual) Nucleated RBC % Seg Neutrophils # Man Lymphocytes # (Manual) PT ABG pH POC ABG pCO2 POC ABG pO2 ABG pO2 ABG O2 Saturation ABG Base Excess ABG Hemoglobin ABG Oxyhemoglobin ABG Potassium ABG Chloride ABG Glucose Oxyhemoglobin Carboxyhemoglobin Sodium 179 H* Potassium 2.9 L* Chloride 138.2 H Carbon Dioxide 20 L BUN 111 H Creatinine 3.7 H Glucose 465 H POC Glucose 353 H 280 H Hemoglobin A1c Lactic Acid Calcium Phosphorus Magnesium Transferrin AST 73 H ALT 61 H Alkaline Phosphatase 144 H Total Creatine Kinase CK-MB (CK-2) Serum Total Protein Total Protein Albumin 2.5 L Lfiag-9-Oofweyjie Mzdvk-7-Aisocnoqu Gamma Globulins PEP Interpretation HDL Cholesterol TSH Arterial Blood Glucose Arterial Blood Ionized Calcium Urine WBC (Auto) Urine Creatinine Urine Total Protein Crossmatch 04/21/21 04/21/21 04/21/21 06:47 08:01 11:11 WBC RBC Hgb Hct MCH RDW Plt Count Seg Neuts % (Manual) Lymphocytes % (Manual) Nucleated RBC % Seg Neutrophils # Man Lymphocytes # (Manual) PT ABG pH POC ABG pCO2 POC ABG pO2 ABG pO2 ABG O2 Saturation ABG Base Excess ABG Hemoglobin ABG Oxyhemoglobin ABG Potassium ABG Chloride ABG Glucose Oxyhemoglobin Carboxyhemoglobin Sodium Potassium Chloride Carbon Dioxide BUN Creatinine Glucose POC Glucose 260 H 68 L Hemoglobin A1c Lactic Acid Calcium Phosphorus Magnesium Transferrin AST ALT Alkaline Phosphatase Total Creatine Kinase CK-MB (CK-2) Serum Total Protein Total Protein Albumin Nqipg-2-Wabwwfdjc Gytkt-5-Cypwpfobr Gamma Globulins PEP Interpretation HDL Cholesterol TSH Arterial Blood Glucose Arterial Blood Ionized Calcium Urine WBC (Auto) Urine Creatinine 44.3 H Urine Total Protein 12 H Crossmatch 04/21/21 04/21/21 04/21/21 12:51 13:41 14:40 WBC RBC Hgb Hct MCH RDW Plt Count Seg Neuts % (Manual) Lymphocytes % (Manual) Nucleated RBC % Seg Neutrophils # Man Lymphocytes # (Manual) PT ABG pH 7.275 L POC ABG pCO2 POC ABG pO2 63.4 L ABG pO2 ABG O2 Saturation ABG Base Excess ABG Hemoglobin 8.4 L ABG Oxyhemoglobin 89.5 L ABG Potassium ABG Chloride 108.0 H ABG Glucose 404 H Oxyhemoglobin Carboxyhemoglobin Sodium Potassium Chloride Carbon Dioxide BUN Creatinine Glucose POC Glucose 146 H 186 H Hemoglobin A1c Lactic Acid Calcium Phosphorus Magnesium Transferrin AST ALT Alkaline Phosphatase Total Creatine Kinase CK-MB (CK-2) Serum Total Protein Total Protein Albumin Zwgwu-7-Qcjivowrf Fkcoy-7-Axbzxsstk Gamma Globulins PEP Interpretation HDL Cholesterol TSH Arterial Blood Glucose 404 H Arterial Blood Ionized Calcium Urine WBC (Auto) Urine Creatinine Urine Total Protein Crossmatch 04/21/21 04/21/21 04/21/21 15:47 16:25 17:57 WBC RBC Hgb Hct MCH RDW Plt Count Seg Neuts % (Manual) Lymphocytes % (Manual) Nucleated RBC % Seg Neutrophils # Man Lymphocytes # (Manual) PT ABG pH 7.486 H POC ABG pCO2 POC ABG pO2 ABG pO2 168.1 H ABG O2 Saturation 99.1 H ABG Base Excess ABG Hemoglobin 8.9 L ABG Oxyhemoglobin ABG Potassium ABG Chloride ABG Glucose Oxyhemoglobin Carboxyhemoglobin Sodium Potassium Chloride Carbon Dioxide BUN Creatinine Glucose POC Glucose 172 H 143 H Hemoglobin A1c Lactic Acid Calcium Phosphorus Magnesium Transferrin AST ALT Alkaline Phosphatase Total Creatine Kinase CK-MB (CK-2) Serum Total Protein Total Protein Albumin Yfjkz-4-Nbumjhsfa Uwphd-3-Nkzcvtltf Gamma Globulins PEP Interpretation HDL Cholesterol TSH Arterial Blood Glucose Arterial Blood Ionized Calcium Urine WBC (Auto) Urine Creatinine Urine Total Protein Crossmatch 04/21/21 04/21/21 04/21/21 18:49 19:10 20:26 WBC RBC Hgb Hct MCH RDW Plt Count Seg Neuts % (Manual) Lymphocytes % (Manual) Nucleated RBC % Seg Neutrophils # Man Lymphocytes # (Manual) PT ABG pH POC ABG pCO2 POC ABG pO2 ABG pO2 ABG O2 Saturation ABG Base Excess ABG Hemoglobin ABG Oxyhemoglobin ABG Potassium ABG Chloride ABG Glucose Oxyhemoglobin Carboxyhemoglobin Sodium 174 H* Potassium 7.2 H* D Chloride 138.2 H Carbon Dioxide 21 L BUN 99 H Creatinine 4.0 H Glucose 157 H POC Glucose 126 H 190 H Hemoglobin A1c Lactic Acid Calcium Phosphorus Magnesium Transferrin AST 134 H ALT 71 H Alkaline Phosphatase 135 H Total Creatine Kinase 3504 H CK-MB (CK-2) Serum Total Protein Total Protein Albumin 2.2 L Fqnnr-8-Ixtjguyqt Mqgym-9-Ghpalbtsm Gamma Globulins PEP Interpretation HDL Cholesterol TSH Arterial Blood Glucose Arterial Blood Ionized Calcium Urine WBC (Auto) Urine Creatinine Urine Total Protein Crossmatch 04/21/21 04/21/21 04/21/21 20:53 21:52 22:55 WBC RBC Hgb Hct MCH RDW Plt Count Seg Neuts % (Manual) Lymphocytes % (Manual) Nucleated RBC % Seg Neutrophils # Man Lymphocytes # (Manual) PT ABG pH POC ABG pCO2 POC ABG pO2 ABG pO2 ABG O2 Saturation ABG Base Excess ABG Hemoglobin ABG Oxyhemoglobin ABG Potassium ABG Chloride ABG Glucose Oxyhemoglobin Carboxyhemoglobin Sodium Potassium Chloride Carbon Dioxide BUN Creatinine Glucose POC Glucose 116 H 135 H 158 H Hemoglobin A1c Lactic Acid Calcium Phosphorus Magnesium Transferrin AST ALT Alkaline Phosphatase Total Creatine Kinase CK-MB (CK-2) Serum Total Protein Total Protein Albumin Fldsq-4-Ezxmmogcs Udtua-4-Deqlqeuvm Gamma Globulins PEP Interpretation HDL Cholesterol TSH Arterial Blood Glucose Arterial Blood Ionized Calcium Urine WBC (Auto) Urine Creatinine Urine Total Protein Crossmatch 04/21/21 04/22/21 04/22/21 23:00 00:01 00:39 WBC RBC Hgb Hct MCH RDW Plt Count Seg Neuts % (Manual) Lymphocytes % (Manual) Nucleated RBC % Seg Neutrophils # Man Lymphocytes # (Manual) PT ABG pH POC ABG pCO2 POC ABG pO2 ABG pO2 ABG O2 Saturation ABG Base Excess ABG Hemoglobin ABG Oxyhemoglobin ABG Potassium ABG Chloride ABG Glucose Oxyhemoglobin Carboxyhemoglobin Sodium 176 H* 171 H* Potassium Chloride 140.0 H Carbon Dioxide 20 L BUN 98 H Creatinine 3.9 H Glucose 206 H POC Glucose 182 H Hemoglobin A1c Lactic Acid Calcium Phosphorus Magnesium Transferrin AST ALT Alkaline Phosphatase Total Creatine Kinase 3240 H CK-MB (CK-2) Serum Total Protein Total Protein Albumin Abzwc-6-Srqidbkuj Pqvui-3-Ddmltdvni Gamma Globulins PEP Interpretation HDL Cholesterol TSH Arterial Blood Glucose Arterial Blood Ionized Calcium Urine WBC (Auto) Urine Creatinine Urine Total Protein Crossmatch 04/22/21 04/22/21 04/22/21 00:58 01:04 04:52 WBC 11.2 H RBC Hgb Hct 44.3 H MCH 27 L RDW 17.1 H Plt Count 86 L Seg Neuts % (Manual) 86.0 H Lymphocytes % (Manual) 13.0 L Nucleated RBC % Seg Neutrophils # Man 9.6 H Lymphocytes # (Manual) PT ABG pH POC ABG pCO2 POC ABG pO2 ABG pO2 ABG O2 Saturation ABG Base Excess ABG Hemoglobin ABG Oxyhemoglobin ABG Potassium ABG Chloride ABG Glucose Oxyhemoglobin Carboxyhemoglobin Sodium Potassium Chloride Carbon Dioxide BUN Creatinine Glucose POC Glucose 176 H 143 H Hemoglobin A1c Lactic Acid Calcium Phosphorus Magnesium Transferrin AST ALT Alkaline Phosphatase Total Creatine Kinase CK-MB (CK-2) Serum Total Protein Total Protein Albumin Kpgvj-1-Mpeetyqlu Sfcmw-8-Etvsknpxd Gamma Globulins PEP Interpretation HDL Cholesterol TSH Arterial Blood Glucose Arterial Blood Ionized Calcium Urine WBC (Auto) Urine Creatinine Urine Total Protein Crossmatch 04/22/21 04/22/21 04/22/21 06:07 06:09 07:18 WBC RBC Hgb Hct MCH RDW Plt Count Seg Neuts % (Manual) Lymphocytes % (Manual) Nucleated RBC % Seg Neutrophils # Man Lymphocytes # (Manual) PT ABG pH POC ABG pCO2 POC ABG pO2 ABG pO2 ABG O2 Saturation ABG Base Excess ABG Hemoglobin ABG Oxyhemoglobin ABG Potassium ABG Chloride ABG Glucose Oxyhemoglobin Carboxyhemoglobin Sodium Potassium Chloride Carbon Dioxide BUN Creatinine Glucose POC Glucose 206 H 163 H 158 H Hemoglobin A1c Lactic Acid Calcium Phosphorus Magnesium Transferrin AST ALT Alkaline Phosphatase Total Creatine Kinase CK-MB (CK-2) Serum Total Protein Total Protein Albumin Jfkmp-2-Doxkqhcee Jatnr-6-Cyivelupv Gamma Globulins PEP Interpretation HDL Cholesterol TSH Arterial Blood Glucose Arterial Blood Ionized Calcium Urine WBC (Auto) Urine Creatinine Urine Total Protein Crossmatch 04/22/21 04/22/21 04/22/21 08:59 08:59 08:59 WBC RBC Hgb Hct MCH RDW Plt Count Seg Neuts % (Manual) Lymphocytes % (Manual) Nucleated RBC % Seg Neutrophils # Man Lymphocytes # (Manual) PT ABG pH POC ABG pCO2 POC ABG pO2 ABG pO2 ABG O2 Saturation ABG Base Excess ABG Hemoglobin ABG Oxyhemoglobin ABG Potassium ABG Chloride ABG Glucose Oxyhemoglobin Carboxyhemoglobin Sodium 169 H* Potassium 3.5 L Chloride 134.5 H Carbon Dioxide 20 L BUN 95 H Creatinine 3.6 H Glucose 151 H POC Glucose Hemoglobin A1c Lactic Acid Calcium Phosphorus Magnesium Transferrin AST 121 H ALT 75 H Alkaline Phosphatase 137 H Total Creatine Kinase 3105 H CK-MB (CK-2) Serum Total Protein 5.5 L Total Protein 6.0 L Albumin 2.8 L 2.1 L Xnyzs-9-Locphxjfg 0.6 H Enudd-9-Kmppnszbp 1.0 H Gamma Globulins 0.6 L PEP Interpretation see below H HDL Cholesterol TSH Arterial Blood Glucose Arterial Blood Ionized Calcium Urine WBC (Auto) Urine Creatinine Urine Total Protein Crossmatch 04/22/21 04/22/21 04/22/21 09:44 10:24 12:20 WBC RBC Hgb Hct MCH RDW Plt Count Seg Neuts % (Manual) Lymphocytes % (Manual) Nucleated RBC % Seg Neutrophils # Man Lymphocytes # (Manual) PT ABG pH POC ABG pCO2 POC ABG pO2 ABG pO2 ABG O2 Saturation ABG Base Excess ABG Hemoglobin ABG Oxyhemoglobin ABG Potassium ABG Chloride ABG Glucose Oxyhemoglobin Carboxyhemoglobin Sodium Potassium Chloride Carbon Dioxide BUN Creatinine Glucose POC Glucose 107 H 131 H Hemoglobin A1c Lactic Acid Calcium Phosphorus Magnesium 2.80 H Transferrin AST ALT Alkaline Phosphatase Total Creatine Kinase CK-MB (CK-2) Serum Total Protein Total Protein Albumin Olhyt-1-Wvknlgxxp Bljzr-3-Ayhdaxduv Gamma Globulins PEP Interpretation HDL Cholesterol TSH Arterial Blood Glucose Arterial Blood Ionized Calcium Urine WBC (Auto) Urine Creatinine Urine Total Protein Crossmatch 04/22/21 04/22/21 04/22/21 13:19 14:16 15:22 WBC RBC Hgb Hct MCH RDW Plt Count Seg Neuts % (Manual) Lymphocytes % (Manual) Nucleated RBC % Seg Neutrophils # Man Lymphocytes # (Manual) PT ABG pH POC ABG pCO2 POC ABG pO2 ABG pO2 ABG O2 Saturation ABG Base Excess ABG Hemoglobin ABG Oxyhemoglobin ABG Potassium ABG Chloride ABG Glucose Oxyhemoglobin Carboxyhemoglobin Sodium Potassium Chloride Carbon Dioxide BUN Creatinine Glucose POC Glucose 147 H 154 H 136 H Hemoglobin A1c Lactic Acid Calcium Phosphorus Magnesium Transferrin AST ALT Alkaline Phosphatase Total Creatine Kinase CK-MB (CK-2) Serum Total Protein Total Protein Albumin Sszjm-1-Ndxzufzot Szztw-0-Ujpaojloc Gamma Globulins PEP Interpretation HDL Cholesterol TSH Arterial Blood Glucose Arterial Blood Ionized Calcium Urine WBC (Auto) Urine Creatinine Urine Total Protein Crossmatch 04/22/21 04/22/21 04/22/21 15:55 15:55 16:22 WBC RBC Hgb Hct MCH RDW Plt Count Seg Neuts % (Manual) Lymphocytes % (Manual) Nucleated RBC % Seg Neutrophils # Man Lymphocytes # (Manual) PT ABG pH POC ABG pCO2 POC ABG pO2 ABG pO2 ABG O2 Saturation ABG Base Excess ABG Hemoglobin ABG Oxyhemoglobin ABG Potassium ABG Chloride ABG Glucose Oxyhemoglobin Carboxyhemoglobin Sodium 169 H* Potassium Chloride 133.5 H Carbon Dioxide 19 L BUN 94 H Creatinine 3.8 H Glucose 150 H POC Glucose 140 H Hemoglobin A1c 17.1 H Lactic Acid Calcium Phosphorus Magnesium Transferrin AST ALT Alkaline Phosphatase Total Creatine Kinase CK-MB (CK-2) Serum Total Protein Total Protein Albumin Nrpdr-7-Dndrpvjah Acvwj-9-Zovdsqbhr Gamma Globulins PEP Interpretation HDL Cholesterol TSH Arterial Blood Glucose Arterial Blood Ionized Calcium Urine WBC (Auto) Urine Creatinine Urine Total Protein Crossmatch 04/22/21 04/22/21 04/22/21 18:11 18:26 23:19 WBC RBC Hgb Hct MCH RDW Plt Count Seg Neuts % (Manual) Lymphocytes % (Manual) Nucleated RBC % Seg Neutrophils # Man Lymphocytes # (Manual) PT ABG pH POC ABG pCO2 POC ABG pO2 ABG pO2 ABG O2 Saturation ABG Base Excess ABG Hemoglobin ABG Oxyhemoglobin ABG Potassium ABG Chloride ABG Glucose Oxyhemoglobin Carboxyhemoglobin Sodium Potassium Chloride Carbon Dioxide BUN Creatinine Glucose POC Glucose 146 H 188 H Hemoglobin A1c Lactic Acid Calcium Phosphorus Magnesium Transferrin AST ALT Alkaline Phosphatase Total Creatine Kinase 2497 H CK-MB (CK-2) Serum Total Protein Total Protein Albumin Hgelb-9-Jnfpdxqcm Rinub-0-Aaejvntnl Gamma Globulins PEP Interpretation HDL Cholesterol TSH Arterial Blood Glucose Arterial Blood Ionized Calcium Urine WBC (Auto) Urine Creatinine Urine Total Protein Crossmatch 04/23/21 04/23/21 04/23/21 00:27 05:23 07:50 WBC RBC Hgb Hct MCH RDW Plt Count Seg Neuts % (Manual) Lymphocytes % (Manual) Nucleated RBC % Seg Neutrophils # Man Lymphocytes # (Manual) PT ABG pH POC ABG pCO2 POC ABG pO2 ABG pO2 ABG O2 Saturation ABG Base Excess ABG Hemoglobin ABG Oxyhemoglobin ABG Potassium ABG Chloride ABG Glucose Oxyhemoglobin Carboxyhemoglobin Sodium 162 H* Potassium Chloride Carbon Dioxide BUN Creatinine Glucose POC Glucose 212 H 239 H Hemoglobin A1c Lactic Acid Calcium Phosphorus Magnesium Transferrin AST ALT Alkaline Phosphatase Total Creatine Kinase CK-MB (CK-2) Serum Total Protein Total Protein Albumin Ovpqr-8-Hvfvguffm Xfnnp-1-Prmusrclw Gamma Globulins PEP Interpretation HDL Cholesterol TSH Arterial Blood Glucose Arterial Blood Ionized Calcium Urine WBC (Auto) Urine Creatinine Urine Total Protein Crossmatch 04/23/21 04/23/21 04/23/21 08:13 08:13 08:13 WBC 11.9 H RBC Hgb Hct MCH 26 L RDW 16.5 H Plt Count 72 L Seg Neuts % (Manual) 80.0 H Lymphocytes % (Manual) 5.0 L Nucleated RBC % Seg Neutrophils # Man 9.5 H Lymphocytes # (Manual) 0.6 L PT ABG pH POC ABG pCO2 POC ABG pO2 ABG pO2 ABG O2 Saturation ABG Base Excess ABG Hemoglobin ABG Oxyhemoglobin ABG Potassium ABG Chloride ABG Glucose Oxyhemoglobin Carboxyhemoglobin Sodium 164 H* Potassium Chloride 128.0 H Carbon Dioxide 21 L BUN 93 H Creatinine 3.8 H Glucose 293 H POC Glucose Hemoglobin A1c Lactic Acid Calcium Phosphorus Magnesium Transferrin AST 99 H ALT 70 H Alkaline Phosphatase 147 H Total Creatine Kinase 1803 H CK-MB (CK-2) Serum Total Protein Total Protein 6.1 L Albumin 2.0 L Ikbpx-3-Mjgsxrdgu Dcudp-1-Udparqylg Gamma Globulins PEP Interpretation HDL Cholesterol TSH Arterial Blood Glucose Arterial Blood Ionized Calcium Urine WBC (Auto) Urine Creatinine Urine Total Protein Crossmatch 04/23/21 04/23/21 04/23/21 12:06 17:35 18:17 WBC RBC Hgb Hct MCH RDW Plt Count Seg Neuts % (Manual) Lymphocytes % (Manual) Nucleated RBC % Seg Neutrophils # Man Lymphocytes # (Manual) PT ABG pH POC ABG pCO2 POC ABG pO2 ABG pO2 ABG O2 Saturation ABG Base Excess ABG Hemoglobin ABG Oxyhemoglobin ABG Potassium ABG Chloride ABG Glucose Oxyhemoglobin Carboxyhemoglobin Sodium 160 H Potassium Chloride Carbon Dioxide BUN Creatinine Glucose POC Glucose 311 H 370 H Hemoglobin A1c Lactic Acid Calcium Phosphorus Magnesium Transferrin AST ALT Alkaline Phosphatase Total Creatine Kinase CK-MB (CK-2) Serum Total Protein Total Protein Albumin Bfxws-5-Ceytoqtcr Pneug-4-Hjzdskatw Gamma Globulins PEP Interpretation HDL Cholesterol TSH Arterial Blood Glucose Arterial Blood Ionized Calcium Urine WBC (Auto) Urine Creatinine Urine Total Protein Crossmatch 04/24/21 04/24/21 04/24/21 02:13 06:00 06:00 WBC RBC Hgb Hct MCH 27 L RDW 17.0 H Plt Count 58 L Seg Neuts % (Manual) Lymphocytes % (Manual) 2.0 L Nucleated RBC % Seg Neutrophils # Man 8.9 H Lymphocytes # (Manual) 0.2 L PT ABG pH POC ABG pCO2 POC ABG pO2 ABG pO2 ABG O2 Saturation ABG Base Excess ABG Hemoglobin ABG Oxyhemoglobin ABG Potassium ABG Chloride ABG Glucose Oxyhemoglobin Carboxyhemoglobin Sodium 160 H Potassium Chloride Carbon Dioxide BUN Creatinine Glucose POC Glucose Hemoglobin A1c Lactic Acid Calcium Phosphorus Magnesium 2.90 H Transferrin AST ALT Alkaline Phosphatase Total Creatine Kinase CK-MB (CK-2) Serum Total Protein Total Protein Albumin Zyygx-1-Meanvrpno Jceik-2-Gvlktbcur Gamma Globulins PEP Interpretation HDL Cholesterol TSH Arterial Blood Glucose Arterial Blood Ionized Calcium Urine WBC (Auto) Urine Creatinine Urine Total Protein Crossmatch 04/24/21 04/24/21 04/24/21 07:46 08:15 11:34 WBC RBC Hgb Hct MCH RDW Plt Count Seg Neuts % (Manual) Lymphocytes % (Manual) Nucleated RBC % Seg Neutrophils # Man Lymphocytes # (Manual) PT ABG pH POC ABG pCO2 POC ABG pO2 ABG pO2 ABG O2 Saturation ABG Base Excess ABG Hemoglobin ABG Oxyhemoglobin ABG Potassium ABG Chloride ABG Glucose Oxyhemoglobin Carboxyhemoglobin Sodium 159 H Potassium Chloride 125.6 H Carbon Dioxide 19 L BUN 94 H Creatinine 3.7 H Glucose 514 H* POC Glucose 395 H 422 H Hemoglobin A1c Lactic Acid Calcium Phosphorus Magnesium Transferrin AST ALT 61 H Alkaline Phosphatase 155 H Total Creatine Kinase CK-MB (CK-2) Serum Total Protein Total Protein 6.1 L Albumin 1.5 L Kjqxh-3-Tlwouqhoy Dpyak-5-Fvwpscaoy Gamma Globulins PEP Interpretation HDL Cholesterol TSH Arterial Blood Glucose Arterial Blood Ionized Calcium Urine WBC (Auto) Urine Creatinine Urine Total Protein Crossmatch 04/24/21 04/24/21 04/24/21 13:11 14:01 15:03 WBC RBC Hgb Hct MCH RDW Plt Count Seg Neuts % (Manual) Lymphocytes % (Manual) Nucleated RBC % Seg Neutrophils # Man Lymphocytes # (Manual) PT ABG pH POC ABG pCO2 POC ABG pO2 ABG pO2 ABG O2 Saturation ABG Base Excess ABG Hemoglobin ABG Oxyhemoglobin ABG Potassium ABG Chloride ABG Glucose Oxyhemoglobin Carboxyhemoglobin Sodium Potassium Chloride Carbon Dioxide BUN Creatinine Glucose POC Glucose 384 H 423 H 418 H Hemoglobin A1c Lactic Acid Calcium Phosphorus Magnesium Transferrin AST ALT Alkaline Phosphatase Total Creatine Kinase CK-MB (CK-2) Serum Total Protein Total Protein Albumin Rdgjv-5-Mgaytugzt Eseag-7-Ymfthxgie Gamma Globulins PEP Interpretation HDL Cholesterol TSH Arterial Blood Glucose Arterial Blood Ionized Calcium Urine WBC (Auto) Urine Creatinine Urine Total Protein Crossmatch 04/24/21 04/24/21 04/24/21 17:29 18:28 19:41 WBC RBC Hgb Hct MCH RDW Plt Count Seg Neuts % (Manual) Lymphocytes % (Manual) Nucleated RBC % Seg Neutrophils # Man Lymphocytes # (Manual) PT ABG pH POC ABG pCO2 POC ABG pO2 ABG pO2 ABG O2 Saturation ABG Base Excess ABG Hemoglobin ABG Oxyhemoglobin ABG Potassium ABG Chloride ABG Glucose Oxyhemoglobin Carboxyhemoglobin Sodium Potassium Chloride Carbon Dioxide BUN Creatinine Glucose POC Glucose 335 H 321 H Hemoglobin A1c Lactic Acid Calcium Phosphorus Magnesium Transferrin 112 L AST ALT Alkaline Phosphatase Total Creatine Kinase CK-MB (CK-2) Serum Total Protein Total Protein Albumin Bbhox-9-Izyqrupll Nhaig-6-Rpxhpdcqj Gamma Globulins PEP Interpretation HDL Cholesterol TSH Arterial Blood Glucose Arterial Blood Ionized Calcium Urine WBC (Auto) Urine Creatinine Urine Total Protein Crossmatch 01/02/22 01/03/22 01/03/22 22:33 01:28 02:28 WBC RBC Hgb Hct MCH RDW Plt Count Seg Neuts % (Manual) Lymphocytes % (Manual) Nucleated RBC % Seg Neutrophils # Man Lymphocytes # (Manual) PT ABG pH POC ABG pCO2 POC ABG pO2 ABG pO2 ABG O2 Saturation ABG Base Excess ABG Hemoglobin ABG Oxyhemoglobin ABG Potassium ABG Chloride ABG Glucose Oxyhemoglobin Carboxyhemoglobin Sodium Potassium Chloride Carbon Dioxide BUN Creatinine Glucose POC Glucose 349 H 283 H 247 H Hemoglobin A1c Lactic Acid Calcium Phosphorus Magnesium Transferrin AST ALT Alkaline Phosphatase Total Creatine Kinase CK-MB (CK-2) Serum Total Protein Total Protein Albumin Wajqu-6-Bzliinrbv Fkofd-9-Bgyllnxyn Gamma Globulins PEP Interpretation HDL Cholesterol TSH Arterial Blood Glucose Arterial Blood Ionized Calcium Urine WBC (Auto) Urine Creatinine Urine Total Protein Crossmatch 04/25/21 04/25/21 04/25/21 03:25 04:22 05:40 WBC RBC Hgb Hct MCH RDW Plt Count Seg Neuts % (Manual) Lymphocytes % (Manual) Nucleated RBC % Seg Neutrophils # Man Lymphocytes # (Manual) PT ABG pH POC ABG pCO2 POC ABG pO2 ABG pO2 ABG O2 Saturation ABG Base Excess ABG Hemoglobin ABG Oxyhemoglobin ABG Potassium ABG Chloride ABG Glucose Oxyhemoglobin Carboxyhemoglobin Sodium Potassium Chloride Carbon Dioxide BUN Creatinine Glucose POC Glucose 196 H 207 H 204 H Hemoglobin A1c Lactic Acid Calcium Phosphorus Magnesium Transferrin AST ALT Alkaline Phosphatase Total Creatine Kinase CK-MB (CK-2) Serum Total Protein Total Protein Albumin Hztag-6-Soslybnam Nojzb-8-Uotxcolyo Gamma Globulins PEP Interpretation HDL Cholesterol TSH Arterial Blood Glucose Arterial Blood Ionized Calcium Urine WBC (Auto) Urine Creatinine Urine Total Protein Crossmatch 04/25/21 04/25/21 04/25/21 05:45 06:43 07:37 WBC RBC Hgb Hct MCH 27 L RDW 17.0 H Plt Count 64 L Seg Neuts % (Manual) 84.0 H Lymphocytes % (Manual) 6.0 L Nucleated RBC % 1.0 H Seg Neutrophils # Man Lymphocytes # (Manual) 0.4 L PT ABG pH POC ABG pCO2 POC ABG pO2 ABG pO2 ABG O2 Saturation ABG Base Excess ABG Hemoglobin ABG Oxyhemoglobin ABG Potassium ABG Chloride ABG Glucose Oxyhemoglobin Carboxyhemoglobin Sodium Potassium Chloride Carbon Dioxide BUN Creatinine Glucose POC Glucose 238 H 201 H Hemoglobin A1c Lactic Acid Calcium Phosphorus Magnesium Transferrin AST ALT Alkaline Phosphatase Total Creatine Kinase CK-MB (CK-2) Serum Total Protein Total Protein Albumin Bworq-2-Tnhilkcvd Sdamw-2-Sxniaudrh Gamma Globulins PEP Interpretation HDL Cholesterol TSH Arterial Blood Glucose Arterial Blood Ionized Calcium Urine WBC (Auto) Urine Creatinine Urine Total Protein Crossmatch 04/25/21 04/25/21 04/25/21 08:11 08:11 08:41 WBC RBC Hgb Hct MCH RDW Plt Count Seg Neuts % (Manual) Lymphocytes % (Manual) Nucleated RBC % Seg Neutrophils # Man Lymphocytes # (Manual) PT ABG pH POC ABG pCO2 POC ABG pO2 ABG pO2 ABG O2 Saturation ABG Base Excess ABG Hemoglobin ABG Oxyhemoglobin ABG Potassium ABG Chloride ABG Glucose Oxyhemoglobin Carboxyhemoglobin Sodium 148 H D Potassium Chloride 115.7 H Carbon Dioxide 21 L BUN 83 H Creatinine 3.6 H Glucose 247 H POC Glucose 220 H Hemoglobin A1c Lactic Acid Calcium Phosphorus Magnesium 2.50 H Transferrin AST 63 H ALT 62 H Alkaline Phosphatase 143 H Total Creatine Kinase CK-MB (CK-2) Serum Total Protein Total Protein 5.4 L Albumin 1.4 L Nwlzc-4-Odnqawevn Yphnk-5-Fzutnlyin Gamma Globulins PEP Interpretation HDL Cholesterol TSH Arterial Blood Glucose Arterial Blood Ionized Calcium Urine WBC (Auto) Urine Creatinine Urine Total Protein Crossmatch 04/25/21 04/25/21 04/25/21 09:22 10:31 11:44 WBC RBC Hgb Hct MCH RDW Plt Count Seg Neuts % (Manual) Lymphocytes % (Manual) Nucleated RBC % Seg Neutrophils # Man Lymphocytes # (Manual) PT ABG pH POC ABG pCO2 POC ABG pO2 ABG pO2 ABG O2 Saturation ABG Base Excess ABG Hemoglobin ABG Oxyhemoglobin ABG Potassium ABG Chloride ABG Glucose Oxyhemoglobin Carboxyhemoglobin Sodium Potassium Chloride Carbon Dioxide BUN Creatinine Glucose POC Glucose 228 H 215 H 191 H Hemoglobin A1c Lactic Acid Calcium Phosphorus Magnesium Transferrin AST ALT Alkaline Phosphatase Total Creatine Kinase CK-MB (CK-2) Serum Total Protein Total Protein Albumin Elwdt-1-Jrorpiwav Obxsl-6-Lpyavbakh Gamma Globulins PEP Interpretation HDL Cholesterol TSH Arterial Blood Glucose Arterial Blood Ionized Calcium Urine WBC (Auto) Urine Creatinine Urine Total Protein Crossmatch 04/25/21 04/25/21 04/25/21 12:23 13:48 14:11 WBC RBC Hgb Hct MCH RDW Plt Count Seg Neuts % (Manual) Lymphocytes % (Manual) Nucleated RBC % Seg Neutrophils # Man Lymphocytes # (Manual) PT ABG pH POC ABG pCO2 POC ABG pO2 ABG pO2 ABG O2 Saturation ABG Base Excess ABG Hemoglobin ABG Oxyhemoglobin ABG Potassium ABG Chloride ABG Glucose Oxyhemoglobin Carboxyhemoglobin Sodium Potassium Chloride Carbon Dioxide BUN Creatinine Glucose POC Glucose 229 H 177 H 161 H Hemoglobin A1c Lactic Acid Calcium Phosphorus Magnesium Transferrin AST ALT Alkaline Phosphatase Total Creatine Kinase CK-MB (CK-2) Serum Total Protein Total Protein Albumin Xkktc-3-Hwndiwvaj Pxgps-7-Imzyulwjh Gamma Globulins PEP Interpretation HDL Cholesterol TSH Arterial Blood Glucose Arterial Blood Ionized Calcium Urine WBC (Auto) Urine Creatinine Urine Total Protein Crossmatch 04/25/21 04/25/21 04/26/21 18:01 21:31 01:19 WBC RBC Hgb Hct MCH RDW Plt Count Seg Neuts % (Manual) Lymphocytes % (Manual) Nucleated RBC % Seg Neutrophils # Man Lymphocytes # (Manual) PT ABG pH POC ABG pCO2 POC ABG pO2 ABG pO2 ABG O2 Saturation ABG Base Excess ABG Hemoglobin ABG Oxyhemoglobin ABG Potassium ABG Chloride ABG Glucose Oxyhemoglobin Carboxyhemoglobin Sodium Potassium Chloride Carbon Dioxide BUN Creatinine Glucose POC Glucose 264 H 371 H 356 H Hemoglobin A1c Lactic Acid Calcium Phosphorus Magnesium Transferrin AST ALT Alkaline Phosphatase Total Creatine Kinase CK-MB (CK-2) Serum Total Protein Total Protein Albumin Ibtcz-9-Yfzwaplwv Onfsc-3-Ycnpgfqwx Gamma Globulins PEP Interpretation HDL Cholesterol TSH Arterial Blood Glucose Arterial Blood Ionized Calcium Urine WBC (Auto) Urine Creatinine Urine Total Protein Crossmatch 04/26/21 04/26/21 04/26/21 06:31 09:13 09:33 WBC RBC Hgb Hct MCH 27 L RDW 16.9 H Plt Count 58 L Seg Neuts % (Manual) 77.0 H Lymphocytes % (Manual) 4.0 L Nucleated RBC % 2.0 H Seg Neutrophils # Man Lymphocytes # (Manual) 0.3 L PT ABG pH POC ABG pCO2 POC ABG pO2 ABG pO2 ABG O2 Saturation ABG Base Excess ABG Hemoglobin ABG Oxyhemoglobin ABG Potassium ABG Chloride ABG Glucose Oxyhemoglobin Carboxyhemoglobin Sodium Potassium Chloride Carbon Dioxide BUN Creatinine Glucose POC Glucose 428 H 454 H Hemoglobin A1c Lactic Acid Calcium Phosphorus Magnesium Transferrin AST ALT Alkaline Phosphatase Total Creatine Kinase CK-MB (CK-2) Serum Total Protein Total Protein Albumin Nrnhn-3-Iqdzbjwsi Lprph-2-Nflgtcpqs Gamma Globulins PEP Interpretation HDL Cholesterol TSH Arterial Blood Glucose Arterial Blood Ionized Calcium Urine WBC (Auto) Urine Creatinine Urine Total Protein Crossmatch 04/26/21 04/26/21 04/26/21 09:33 09:33 11:00 WBC RBC Hgb Hct MCH RDW Plt Count Seg Neuts % (Manual) Lymphocytes % (Manual) Nucleated RBC % Seg Neutrophils # Man Lymphocytes # (Manual) PT ABG pH 7.281 L POC ABG pCO2 POC ABG pO2 66.4 L ABG pO2 ABG O2 Saturation ABG Base Excess ABG Hemoglobin 10.9 L ABG Oxyhemoglobin 91 L ABG Potassium ABG Chloride ABG Glucose 521 H Oxyhemoglobin Carboxyhemoglobin Sodium Potassium Chloride Carbon Dioxide 19 L BUN 98 H Creatinine 3.8 H Glucose 530 H* POC Glucose Hemoglobin A1c Lactic Acid Calcium 8.1 L Phosphorus 5.60 H D Magnesium Transferrin AST 60 H ALT 72 H Alkaline Phosphatase 168 H Total Creatine Kinase CK-MB (CK-2) Serum Total Protein Total Protein 4.6 L Albumin 1.7 L Kykif-0-Incmmdqzw Bojbc-8-Kcnrypejn Gamma Globulins PEP Interpretation HDL Cholesterol TSH Arterial Blood Glucose 521 H Arterial Blood Ionized Calcium Urine WBC (Auto) Urine Creatinine Urine Total Protein Crossmatch 04/26/21 04/26/21 04/26/21 12:36 15:39 16:18 WBC RBC Hgb Hct MCH RDW Plt Count Seg Neuts % (Manual) Lymphocytes % (Manual) Nucleated RBC % Seg Neutrophils # Man Lymphocytes # (Manual) PT ABG pH 7.275 L POC ABG pCO2 POC ABG pO2 63.4 L ABG pO2 ABG O2 Saturation ABG Base Excess ABG Hemoglobin 8.4 L ABG Oxyhemoglobin 89.5 L ABG Potassium ABG Chloride 108.0 H ABG Glucose 404 H Oxyhemoglobin Carboxyhemoglobin Sodium Potassium Chloride Carbon Dioxide BUN Creatinine Glucose POC Glucose 414 H 324 H Hemoglobin A1c Lactic Acid Calcium Phosphorus Magnesium Transferrin AST ALT Alkaline Phosphatase Total Creatine Kinase CK-MB (CK-2) Serum Total Protein Total Protein Albumin Rtpag-5-Jwcgzhlet Oqvyz-8-Oikwzcuwt Gamma Globulins PEP Interpretation HDL Cholesterol TSH Arterial Blood Glucose 404 H Arterial Blood Ionized Calcium Urine WBC (Auto) Urine Creatinine Urine Total Protein Crossmatch 04/26/21 04/27/21 04/27/21 21:14 00:07 05:47 WBC RBC Hgb Hct MCH RDW Plt Count Seg Neuts % (Manual) Lymphocytes % (Manual) Nucleated RBC % Seg Neutrophils # Man Lymphocytes # (Manual) PT ABG pH POC ABG pCO2 POC ABG pO2 ABG pO2 ABG O2 Saturation ABG Base Excess ABG Hemoglobin ABG Oxyhemoglobin ABG Potassium ABG Chloride ABG Glucose Oxyhemoglobin Carboxyhemoglobin Sodium Potassium Chloride Carbon Dioxide BUN Creatinine Glucose POC Glucose 242 H 282 H 214 H Hemoglobin A1c Lactic Acid Calcium Phosphorus Magnesium Transferrin AST ALT Alkaline Phosphatase Total Creatine Kinase CK-MB (CK-2) Serum Total Protein Total Protein Albumin Vnkea-4-Qywplrszq Stgau-6-Zcalmvsmb Gamma Globulins PEP Interpretation HDL Cholesterol TSH Arterial Blood Glucose Arterial Blood Ionized Calcium Urine WBC (Auto) Urine Creatinine Urine Total Protein Crossmatch 04/27/21 04/27/21 04/27/21 06:23 07:43 08:30 WBC RBC Hgb Hct MCH RDW Plt Count Seg Neuts % (Manual) Lymphocytes % (Manual) Nucleated RBC % Seg Neutrophils # Man Lymphocytes # (Manual) PT ABG pH 7.309 L POC ABG pCO2 POC ABG pO2 70.6 L ABG pO2 ABG O2 Saturation ABG Base Excess ABG Hemoglobin 9.16 L ABG Oxyhemoglobin 92.4 L ABG Potassium ABG Chloride ABG Glucose Oxyhemoglobin Carboxyhemoglobin Sodium Potassium Chloride 110.1 H Carbon Dioxide 15 L BUN 109 H Creatinine 4.3 H Glucose 218 H POC Glucose 187 H Hemoglobin A1c Lactic Acid Calcium Phosphorus Magnesium Transferrin AST 53 H ALT Alkaline Phosphatase 148 H Total Creatine Kinase 1000 H CK-MB (CK-2) Serum Total Protein Total Protein 5.2 L Albumin 1.2 L Ajlmv-9-Xanybfhjc Gkvfq-1-Bafhiixjf Gamma Globulins PEP Interpretation HDL Cholesterol TSH Arterial Blood Glucose Arterial Blood Ionized Calcium Urine WBC (Auto) Urine Creatinine Urine Total Protein Crossmatch 04/27/21 04/27/21 04/27/21 11:54 21:08 23:28 WBC RBC Hgb Hct MCH RDW Plt Count Seg Neuts % (Manual) Lymphocytes % (Manual) Nucleated RBC % Seg Neutrophils # Man Lymphocytes # (Manual) PT ABG pH POC ABG pCO2 POC ABG pO2 ABG pO2 ABG O2 Saturation ABG Base Excess ABG Hemoglobin ABG Oxyhemoglobin ABG Potassium ABG Chloride ABG Glucose Oxyhemoglobin Carboxyhemoglobin Sodium Potassium Chloride Carbon Dioxide BUN Creatinine Glucose POC Glucose 147 H 136 H 201 H Hemoglobin A1c Lactic Acid Calcium Phosphorus Magnesium Transferrin AST ALT Alkaline Phosphatase Total Creatine Kinase CK-MB (CK-2) Serum Total Protein Total Protein Albumin Aktym-7-Izzlempxf Tmlbg-1-Xvhirgqbo Gamma Globulins PEP Interpretation HDL Cholesterol TSH Arterial Blood Glucose Arterial Blood Ionized Calcium Urine WBC (Auto) Urine Creatinine Urine Total Protein Crossmatch 04/28/21 04/28/21 04/28/21 04:00 04:00 05:00 WBC 12.6 H RBC 3.59 L Hgb 9.4 L Hct MCH 26 L RDW 16.6 H Plt Count 111 L Seg Neuts % (Manual) Lymphocytes % (Manual) 1.0 L Nucleated RBC % 4.0 H Seg Neutrophils # Man 11.6 H Lymphocytes # (Manual) 0.1 L PT 15.3 H ABG pH POC ABG pCO2 POC ABG pO2 ABG pO2 ABG O2 Saturation ABG Base Excess ABG Hemoglobin ABG Oxyhemoglobin ABG Potassium ABG Chloride ABG Glucose Oxyhemoglobin Carboxyhemoglobin Sodium 147 H Potassium 3.5 L D Chloride Carbon Dioxide BUN 79 H Creatinine 3.8 H Glucose 194 H POC Glucose Hemoglobin A1c Lactic Acid Calcium 8.1 L Phosphorus Magnesium Transferrin AST ALT Alkaline Phosphatase Total Creatine Kinase CK-MB (CK-2) Serum Total Protein Total Protein Albumin Xuvfs-9-Tjhhgayfv Msypv-1-Vghbyypzp Gamma Globulins PEP Interpretation HDL Cholesterol TSH Arterial Blood Glucose Arterial Blood Ionized Calcium Urine WBC (Auto) Urine Creatinine Urine Total Protein Crossmatch 04/28/21 04/28/21 04/28/21 05:08 05:18 11:04 WBC RBC Hgb Hct MCH RDW Plt Count Seg Neuts % (Manual) Lymphocytes % (Manual) Nucleated RBC % Seg Neutrophils # Man Lymphocytes # (Manual) PT ABG pH POC ABG pCO2 POC ABG pO2 66.5 L ABG pO2 ABG O2 Saturation ABG Base Excess ABG Hemoglobin 9.7 L ABG Oxyhemoglobin 92.5 L ABG Potassium 3.2 L ABG Chloride ABG Glucose 200 H Oxyhemoglobin Carboxyhemoglobin Sodium Potassium Chloride Carbon Dioxide BUN Creatinine Glucose POC Glucose 183 H 174 H Hemoglobin A1c Lactic Acid Calcium Phosphorus Magnesium Transferrin AST ALT Alkaline Phosphatase Total Creatine Kinase CK-MB (CK-2) Serum Total Protein Total Protein Albumin Aircj-5-Ytroeqkwn Fxyda-5-Bokesgtuw Gamma Globulins PEP Interpretation HDL Cholesterol TSH Arterial Blood Glucose 200 H Arterial Blood Ionized Calcium 4.5 L Urine WBC (Auto) Urine Creatinine Urine Total Protein Crossmatch 04/28/21 04/28/21 04/28/21 17:16 21:14 23:41 WBC RBC Hgb Hct MCH RDW Plt Count Seg Neuts % (Manual) Lymphocytes % (Manual) Nucleated RBC % Seg Neutrophils # Man Lymphocytes # (Manual) PT ABG pH POC ABG pCO2 POC ABG pO2 ABG pO2 ABG O2 Saturation ABG Base Excess ABG Hemoglobin ABG Oxyhemoglobin ABG Potassium ABG Chloride ABG Glucose Oxyhemoglobin Carboxyhemoglobin Sodium Potassium Chloride Carbon Dioxide BUN Creatinine Glucose POC Glucose 135 H 134 H 171 H Hemoglobin A1c Lactic Acid Calcium Phosphorus Magnesium Transferrin AST ALT Alkaline Phosphatase Total Creatine Kinase CK-MB (CK-2) Serum Total Protein Total Protein Albumin Egoge-5-Zwuorfzge Nfzem-3-Jtfbsgyyo Gamma Globulins PEP Interpretation HDL Cholesterol TSH Arterial Blood Glucose Arterial Blood Ionized Calcium Urine WBC (Auto) Urine Creatinine Urine Total Protein Crossmatch 04/29/21 04/29/21 04/29/21 01:16 04:00 04:00 WBC 13.3 H RBC 3.12 L Hgb 8.3 L Hct 26.2 L MCH 27 L RDW 16.3 H Plt Count 132 L Seg Neuts % (Manual) Lymphocytes % (Manual) Nucleated RBC % Seg Neutrophils # Man Lymphocytes # (Manual) PT ABG pH POC ABG pCO2 POC ABG pO2 ABG pO2 ABG O2 Saturation ABG Base Excess ABG Hemoglobin ABG Oxyhemoglobin ABG Potassium ABG Chloride ABG Glucose Oxyhemoglobin Carboxyhemoglobin Sodium Potassium Chloride Carbon Dioxide BUN 63 H Creatinine 3.4 H Glucose 249 H POC Glucose 236 H Hemoglobin A1c Lactic Acid Calcium 8.2 L Phosphorus Magnesium Transferrin AST 61 H ALT 71 H Alkaline Phosphatase 170 H Total Creatine Kinase CK-MB (CK-2) Serum Total Protein Total Protein 5.1 L Albumin 1.6 L Rccre-7-Ffylcmfvb Ywscd-3-Gysxrdtfe Gamma Globulins PEP Interpretation HDL Cholesterol TSH Arterial Blood Glucose Arterial Blood Ionized Calcium Urine WBC (Auto) Urine Creatinine Urine Total Protein Crossmatch 04/29/21 04/29/21 04/29/21 11:35 13:30 16:01 WBC RBC Hgb Hct MCH RDW Plt Count Seg Neuts % (Manual) Lymphocytes % (Manual) Nucleated RBC % Seg Neutrophils # Man Lymphocytes # (Manual) PT ABG pH POC ABG pCO2 POC ABG pO2 ABG pO2 ABG O2 Saturation ABG Base Excess ABG Hemoglobin ABG Oxyhemoglobin ABG Potassium ABG Chloride ABG Glucose Oxyhemoglobin Carboxyhemoglobin Sodium Potassium Chloride Carbon Dioxide BUN Creatinine Glucose POC Glucose 320 H 297 H Hemoglobin A1c Lactic Acid Calcium Phosphorus Magnesium Transferrin AST ALT Alkaline Phosphatase Total Creatine Kinase CK-MB (CK-2) Serum Total Protein Total Protein Albumin Qbsub-9-Dwdfdecsx Dbjas-9-Sqddjvckb Gamma Globulins PEP Interpretation HDL Cholesterol TSH Arterial Blood Glucose Arterial Blood Ionized Calcium Urine WBC (Auto) > 182.0 H Urine Creatinine Urine Total Protein Crossmatch 04/29/21 04/29/21 04/30/21 21:58 23:35 04:00 WBC 11.4 H RBC 3.27 L Hgb 8.7 L Hct 27.5 L MCH 27 L RDW 16.6 H Plt Count Seg Neuts % (Manual) Lymphocytes % (Manual) Nucleated RBC % Seg Neutrophils # Man Lymphocytes # (Manual) PT ABG pH POC ABG pCO2 POC ABG pO2 ABG pO2 ABG O2 Saturation ABG Base Excess ABG Hemoglobin ABG Oxyhemoglobin ABG Potassium ABG Chloride ABG Glucose Oxyhemoglobin Carboxyhemoglobin Sodium Potassium Chloride Carbon Dioxide BUN Creatinine Glucose POC Glucose 260 H 254 H Hemoglobin A1c Lactic Acid Calcium Phosphorus Magnesium Transferrin AST ALT Alkaline Phosphatase Total Creatine Kinase CK-MB (CK-2) Serum Total Protein Total Protein Albumin Aektn-4-Kkdiwdqfh Pvsdk-0-Uhtjrawwf Gamma Globulins PEP Interpretation HDL Cholesterol TSH Arterial Blood Glucose Arterial Blood Ionized Calcium Urine WBC (Auto) Urine Creatinine Urine Total Protein Crossmatch 04/30/21 04/30/21 04/30/21 04:00 05:17 05:31 WBC RBC Hgb Hct MCH RDW Plt Count Seg Neuts % (Manual) Lymphocytes % (Manual) Nucleated RBC % Seg Neutrophils # Man Lymphocytes # (Manual) PT ABG pH 7.452 H POC ABG pCO2 30.5 L POC ABG pO2 54.5 L ABG pO2 ABG O2 Saturation ABG Base Excess ABG Hemoglobin 10.1 L ABG Oxyhemoglobin 87.4 L ABG Potassium 2.9 L ABG Chloride ABG Glucose 305 H Oxyhemoglobin Carboxyhemoglobin Sodium Potassium 3.1 L Chloride Carbon Dioxide BUN 79 H Creatinine 3.9 H Glucose 275 H POC Glucose 267 H Hemoglobin A1c Lactic Acid Calcium Phosphorus 5.60 H D Magnesium Transferrin AST ALT Alkaline Phosphatase Total Creatine Kinase CK-MB (CK-2) Serum Total Protein Total Protein Albumin Toggy-5-Lmmtgohtl Uwyrk-2-Spcwehbbt Gamma Globulins PEP Interpretation HDL Cholesterol TSH Arterial Blood Glucose 305 H Arterial Blood Ionized Calcium Urine WBC (Auto) Urine Creatinine Urine Total Protein Crossmatch 04/30/21 04/30/21 04/30/21 12:31 17:50 22:24 WBC RBC Hgb Hct MCH RDW Plt Count Seg Neuts % (Manual) Lymphocytes % (Manual) Nucleated RBC % Seg Neutrophils # Man Lymphocytes # (Manual) PT ABG pH POC ABG pCO2 POC ABG pO2 ABG pO2 ABG O2 Saturation ABG Base Excess ABG Hemoglobin ABG Oxyhemoglobin ABG Potassium ABG Chloride ABG Glucose Oxyhemoglobin Carboxyhemoglobin Sodium Potassium Chloride Carbon Dioxide BUN Creatinine Glucose POC Glucose 259 H 161 H 146 H Hemoglobin A1c Lactic Acid Calcium Phosphorus Magnesium Transferrin AST ALT Alkaline Phosphatase Total Creatine Kinase CK-MB (CK-2) Serum Total Protein Total Protein Albumin Hkhsr-4-Hhrvszufj Vimwm-2-Ktztsqgzy Gamma Globulins PEP Interpretation HDL Cholesterol TSH Arterial Blood Glucose Arterial Blood Ionized Calcium Urine WBC (Auto) Urine Creatinine Urine Total Protein Crossmatch 05/01/21 05/01/21 05/01/21 00:09 03:30 04:00 WBC 12.0 H RBC 3.08 L Hgb 8.1 L Hct 25.6 L MCH 26 L RDW 16.3 H Plt Count Seg Neuts % (Manual) Lymphocytes % (Manual) Nucleated RBC % Seg Neutrophils # Man Lymphocytes # (Manual) PT ABG pH 7.493 H POC ABG pCO2 POC ABG pO2 ABG pO2 ABG O2 Saturation ABG Base Excess ABG Hemoglobin 9.3 L ABG Oxyhemoglobin ABG Potassium ABG Chloride ABG Glucose 167 H Oxyhemoglobin Carboxyhemoglobin 0.4 L Sodium Potassium Chloride Carbon Dioxide BUN Creatinine Glucose POC Glucose 149 H Hemoglobin A1c Lactic Acid Calcium Phosphorus Magnesium Transferrin AST ALT Alkaline Phosphatase Total Creatine Kinase CK-MB (CK-2) Serum Total Protein Total Protein Albumin Wrxht-7-Ddoiwjzrk Pmyev-8-Fcfgkzhbh Gamma Globulins PEP Interpretation HDL Cholesterol TSH Arterial Blood Glucose 167 H Arterial Blood Ionized Calcium Urine WBC (Auto) Urine Creatinine Urine Total Protein Crossmatch 05/01/21 05/01/21 05/01/21 04:00 05:48 11:49 WBC RBC Hgb Hct MCH RDW Plt Count Seg Neuts % (Manual) Lymphocytes % (Manual) Nucleated RBC % Seg Neutrophils # Man Lymphocytes # (Manual) PT ABG pH POC ABG pCO2 POC ABG pO2 ABG pO2 ABG O2 Saturation ABG Base Excess ABG Hemoglobin ABG Oxyhemoglobin ABG Potassium ABG Chloride ABG Glucose Oxyhemoglobin Carboxyhemoglobin Sodium Potassium 3.5 L Chloride Carbon Dioxide BUN 62 H Creatinine 3.3 H Glucose 179 H POC Glucose 197 H 167 H Hemoglobin A1c Lactic Acid Calcium 8.3 L Phosphorus Magnesium Transferrin AST ALT Alkaline Phosphatase Total Creatine Kinase CK-MB (CK-2) Serum Total Protein Total Protein Albumin Xhobq-3-Diuwovpik Siiaf-6-Szahjrpxn Gamma Globulins PEP Interpretation HDL Cholesterol TSH Arterial Blood Glucose Arterial Blood Ionized Calcium Urine WBC (Auto) Urine Creatinine Urine Total Protein Crossmatch 05/01/21 05/01/21 05/02/21 16:24 23:25 04:00 WBC 14.2 H RBC 2.61 L Hgb 6.9 L Hct 22.1 L MCH 27 L RDW 16.1 H Plt Count Seg Neuts % (Manual) Lymphocytes % (Manual) Nucleated RBC % Seg Neutrophils # Man Lymphocytes # (Manual) PT ABG pH POC ABG pCO2 POC ABG pO2 ABG pO2 ABG O2 Saturation ABG Base Excess ABG Hemoglobin ABG Oxyhemoglobin ABG Potassium ABG Chloride ABG Glucose Oxyhemoglobin Carboxyhemoglobin Sodium Potassium Chloride Carbon Dioxide BUN Creatinine Glucose POC Glucose 157 H 147 H Hemoglobin A1c Lactic Acid Calcium Phosphorus Magnesium Transferrin AST ALT Alkaline Phosphatase Total Creatine Kinase CK-MB (CK-2) Serum Total Protein Total Protein Albumin Rspdb-2-Hrvvzcdan Jqlsy-1-Fpaxbfvuh Gamma Globulins PEP Interpretation HDL Cholesterol TSH Arterial Blood Glucose Arterial Blood Ionized Calcium Urine WBC (Auto) Urine Creatinine Urine Total Protein Crossmatch 05/02/21 05/02/21 05/02/21 04:00 04:34 05:23 WBC RBC Hgb Hct MCH RDW Plt Count Seg Neuts % (Manual) Lymphocytes % (Manual) Nucleated RBC % Seg Neutrophils # Man Lymphocytes # (Manual) PT ABG pH 7.487 H POC ABG pCO2 POC ABG pO2 78.6 L ABG pO2 ABG O2 Saturation ABG Base Excess ABG Hemoglobin 11.5 L ABG Oxyhemoglobin ABG Potassium ABG Chloride ABG Glucose 122 H Oxyhemoglobin Carboxyhemoglobin Sodium Potassium Chloride Carbon Dioxide BUN 49 H Creatinine 2.8 H Glucose 117 H POC Glucose 119 H Hemoglobin A1c Lactic Acid Calcium Phosphorus Magnesium Transferrin AST ALT Alkaline Phosphatase Total Creatine Kinase CK-MB (CK-2) Serum Total Protein Total Protein Albumin Bbxjv-5-Xsoacuijv Wkwgk-8-Fkfuxxpri Gamma Globulins PEP Interpretation HDL Cholesterol TSH Arterial Blood Glucose 122 H Arterial Blood Ionized Calcium Urine WBC (Auto) Urine Creatinine Urine Total Protein Crossmatch 05/02/21 05/02/21 05/02/21 12:00 12:04 17:29 WBC RBC Hgb Hct MCH RDW Plt Count Seg Neuts % (Manual) Lymphocytes % (Manual) Nucleated RBC % Seg Neutrophils # Man Lymphocytes # (Manual) PT ABG pH POC ABG pCO2 POC ABG pO2 ABG pO2 ABG O2 Saturation ABG Base Excess ABG Hemoglobin ABG Oxyhemoglobin ABG Potassium ABG Chloride ABG Glucose Oxyhemoglobin Carboxyhemoglobin Sodium Potassium Chloride Carbon Dioxide BUN Creatinine Glucose POC Glucose 115 H 120 H Hemoglobin A1c Lactic Acid Calcium Phosphorus Magnesium Transferrin AST ALT Alkaline Phosphatase Total Creatine Kinase CK-MB (CK-2) Serum Total Protein Total Protein Albumin Fljhl-4-Pqtdlyexh Giiux-9-Somgcosyq Gamma Globulins PEP Interpretation HDL Cholesterol TSH Arterial Blood Glucose Arterial Blood Ionized Calcium Urine WBC (Auto) Urine Creatinine Urine Total Protein Crossmatch See Detail 05/02/21 05/03/21 05/03/21 23:36 04:00 04:00 WBC 13.9 H RBC 3.22 L Hgb 8.7 L Hct 27.4 L MCH 27 L RDW 15.8 H Plt Count Seg Neuts % (Manual) Lymphocytes % (Manual) Nucleated RBC % Seg Neutrophils # Man Lymphocytes # (Manual) PT ABG pH POC ABG pCO2 POC ABG pO2 ABG pO2 ABG O2 Saturation ABG Base Excess ABG Hemoglobin ABG Oxyhemoglobin ABG Potassium ABG Chloride ABG Glucose Oxyhemoglobin Carboxyhemoglobin Sodium 146 H Potassium 3.5 L Chloride 107.5 H Carbon Dioxide BUN 40 H Creatinine 2.5 H Glucose 104 H POC Glucose 130 H Hemoglobin A1c Lactic Acid Calcium Phosphorus Magnesium Transferrin AST 53 H ALT Alkaline Phosphatase 149 H Total Creatine Kinase CK-MB (CK-2) Serum Total Protein Total Protein 5.2 L Albumin 1.5 L Oyito-7-Mgfhrrzuq Jjcnj-0-Nyuzzcyht Gamma Globulins PEP Interpretation HDL Cholesterol TSH Arterial Blood Glucose Arterial Blood Ionized Calcium Urine WBC (Auto) Urine Creatinine Urine Total Protein Crossmatch 05/03/21 05/04/21 05/04/21 17:26 01:24 04:48 WBC 14.3 H RBC 3.14 L Hgb 8.5 L Hct 26.3 L MCH 27 L RDW 15.8 H Plt Count Seg Neuts % (Manual) Lymphocytes % (Manual) Nucleated RBC % Seg Neutrophils # Man Lymphocytes # (Manual) PT ABG pH POC ABG pCO2 POC ABG pO2 ABG pO2 ABG O2 Saturation ABG Base Excess ABG Hemoglobin ABG Oxyhemoglobin ABG Potassium ABG Chloride ABG Glucose Oxyhemoglobin Carboxyhemoglobin Sodium Potassium Chloride Carbon Dioxide BUN Creatinine Glucose POC Glucose 123 H 146 H Hemoglobin A1c Lactic Acid Calcium Phosphorus Magnesium Transferrin AST ALT Alkaline Phosphatase Total Creatine Kinase CK-MB (CK-2) Serum Total Protein Total Protein Albumin Nehab-3-Klrxlnpec Tiwlg-2-Wnnqwkalr Gamma Globulins PEP Interpretation HDL Cholesterol TSH Arterial Blood Glucose Arterial Blood Ionized Calcium Urine WBC (Auto) Urine Creatinine Urine Total Protein Crossmatch 05/04/21 05/04/21 05/04/21 04:48 05:15 11:24 WBC RBC Hgb Hct MCH RDW Plt Count Seg Neuts % (Manual) Lymphocytes % (Manual) Nucleated RBC % Seg Neutrophils # Man Lymphocytes # (Manual) PT ABG pH POC ABG pCO2 POC ABG pO2 ABG pO2 ABG O2 Saturation ABG Base Excess ABG Hemoglobin ABG Oxyhemoglobin ABG Potassium ABG Chloride ABG Glucose Oxyhemoglobin Carboxyhemoglobin Sodium Potassium 3.5 L Chloride Carbon Dioxide BUN 58 H Creatinine 3.4 H Glucose 168 H POC Glucose 162 H 145 H Hemoglobin A1c Lactic Acid Calcium Phosphorus 5.30 H Magnesium Transferrin AST ALT Alkaline Phosphatase Total Creatine Kinase CK-MB (CK-2) Serum Total Protein Total Protein Albumin Obixd-8-Ctjokojki Tywdk-2-Wltuzufbu Gamma Globulins PEP Interpretation HDL Cholesterol 24 L TSH Arterial Blood Glucose Arterial Blood Ionized Calcium Urine WBC (Auto) Urine Creatinine Urine Total Protein Crossmatch 05/04/21 05/04/21 05/05/21 16:01 23:32 04:00 WBC RBC Hgb Hct MCH RDW Plt Count Seg Neuts % (Manual) Lymphocytes % (Manual) Nucleated RBC % Seg Neutrophils # Man Lymphocytes # (Manual) PT ABG pH POC ABG pCO2 POC ABG pO2 ABG pO2 ABG O2 Saturation ABG Base Excess ABG Hemoglobin ABG Oxyhemoglobin ABG Potassium ABG Chloride ABG Glucose Oxyhemoglobin Carboxyhemoglobin Sodium Potassium 3.4 L Chloride Carbon Dioxide BUN 43 H Creatinine 2.7 H Glucose 124 H POC Glucose 148 H 134 H Hemoglobin A1c Lactic Acid Calcium 8.2 L Phosphorus Magnesium Transferrin AST ALT Alkaline Phosphatase Total Creatine Kinase CK-MB (CK-2) Serum Total Protein Total Protein Albumin Wpsvn-8-Oblcfozgu Hyyeh-3-Zjxjarxwt Gamma Globulins PEP Interpretation HDL Cholesterol TSH Arterial Blood Glucose Arterial Blood Ionized Calcium Urine WBC (Auto) Urine Creatinine Urine Total Protein Crossmatch 05/05/21 05/06/21 05/06/21 05:14 00:01 04:00 WBC RBC Hgb Hct MCH RDW Plt Count Seg Neuts % (Manual) Lymphocytes % (Manual) Nucleated RBC % Seg Neutrophils # Man Lymphocytes # (Manual) PT ABG pH POC ABG pCO2 POC ABG pO2 ABG pO2 ABG O2 Saturation ABG Base Excess ABG Hemoglobin ABG Oxyhemoglobin ABG Potassium ABG Chloride ABG Glucose Oxyhemoglobin Carboxyhemoglobin Sodium Potassium 3.2 L Chloride Carbon Dioxide BUN 56 H Creatinine 3.0 H Glucose 110 H POC Glucose 120 H 120 H Hemoglobin A1c Lactic Acid Calcium 7.8 L Phosphorus 4.60 H Magnesium Transferrin AST ALT Alkaline Phosphatase Total Creatine Kinase CK-MB (CK-2) Serum Total Protein Total Protein Albumin Qhfhu-8-Hdyshbakm Imnfy-4-Xsvpolzgb Gamma Globulins PEP Interpretation HDL Cholesterol TSH Arterial Blood Glucose Arterial Blood Ionized Calcium Urine WBC (Auto) Urine Creatinine Urine Total Protein Crossmatch 05/06/21 05/06/21 05/06/21 04:27 05:15 17:37 WBC RBC 3.03 L Hgb 8.3 L Hct 25.4 L MCH 27 L RDW Plt Count Seg Neuts % (Manual) Lymphocytes % (Manual) Nucleated RBC % Seg Neutrophils # Man Lymphocytes # (Manual) PT ABG pH POC ABG pCO2 POC ABG pO2 ABG pO2 ABG O2 Saturation ABG Base Excess ABG Hemoglobin ABG Oxyhemoglobin ABG Potassium ABG Chloride ABG Glucose Oxyhemoglobin Carboxyhemoglobin Sodium Potassium Chloride Carbon Dioxide BUN Creatinine Glucose POC Glucose 137 H 132 H Hemoglobin A1c Lactic Acid Calcium Phosphorus Magnesium Transferrin AST ALT Alkaline Phosphatase Total Creatine Kinase CK-MB (CK-2) Serum Total Protein Total Protein Albumin Ohgnr-1-Ycbdqfxve Stagj-3-Evtxxqpcc Gamma Globulins PEP Interpretation HDL Cholesterol TSH Arterial Blood Glucose Arterial Blood Ionized Calcium Urine WBC (Auto) Urine Creatinine Urine Total Protein Crossmatch 05/07/21 05/07/21 05/07/21 00:30 04:23 04:23 WBC RBC Hgb Hct MCH RDW Plt Count Seg Neuts % (Manual) Lymphocytes % (Manual) Nucleated RBC % Seg Neutrophils # Man Lymphocytes # (Manual) PT ABG pH POC ABG pCO2 POC ABG pO2 ABG pO2 ABG O2 Saturation ABG Base Excess ABG Hemoglobin ABG Oxyhemoglobin ABG Potassium ABG Chloride ABG Glucose Oxyhemoglobin Carboxyhemoglobin Sodium Potassium 3.4 L Chloride 107.1 H Carbon Dioxide BUN 28 H Creatinine 1.9 H Glucose 165 H POC Glucose 121 H Hemoglobin A1c Lactic Acid Calcium 8.2 L Phosphorus Magnesium 1.60 L Transferrin AST ALT Alkaline Phosphatase Total Creatine Kinase CK-MB (CK-2) Serum Total Protein Total Protein Albumin Aqpri-8-Cjqyyyuzy Czkil-9-Lxxjgmerr Gamma Globulins PEP Interpretation HDL Cholesterol TSH Arterial Blood Glucose Arterial Blood Ionized Calcium Urine WBC (Auto) Urine Creatinine Urine Total Protein Crossmatch 05/07/21 05/07/21 05/07/21 05:30 11:37 17:28 WBC RBC Hgb Hct MCH RDW Plt Count Seg Neuts % (Manual) Lymphocytes % (Manual) Nucleated RBC % Seg Neutrophils # Man Lymphocytes # (Manual) PT ABG pH POC ABG pCO2 POC ABG pO2 ABG pO2 ABG O2 Saturation ABG Base Excess ABG Hemoglobin ABG Oxyhemoglobin ABG Potassium ABG Chloride ABG Glucose Oxyhemoglobin Carboxyhemoglobin Sodium Potassium Chloride Carbon Dioxide BUN Creatinine Glucose POC Glucose 205 H 148 H 170 H Hemoglobin A1c Lactic Acid Calcium Phosphorus Magnesium Transferrin AST ALT Alkaline Phosphatase Total Creatine Kinase CK-MB (CK-2) Serum Total Protein Total Protein Albumin Scseu-7-Yvsakysqy Mkwdr-1-Alqefqkpq Gamma Globulins PEP Interpretation HDL Cholesterol TSH Arterial Blood Glucose Arterial Blood Ionized Calcium Urine WBC (Auto) Urine Creatinine Urine Total Protein Crossmatch 05/07/21 05/08/21 05/08/21 23:57 05:12 05:12 WBC 11.2 H RBC 3.01 L Hgb 8.2 L Hct 25.5 L MCH 27 L RDW 15.4 H Plt Count Seg Neuts % (Manual) Lymphocytes % (Manual) Nucleated RBC % Seg Neutrophils # Man Lymphocytes # (Manual) PT ABG pH POC ABG pCO2 POC ABG pO2 ABG pO2 ABG O2 Saturation ABG Base Excess ABG Hemoglobin ABG Oxyhemoglobin ABG Potassium ABG Chloride ABG Glucose Oxyhemoglobin Carboxyhemoglobin Sodium Potassium 3.4 L Chloride Carbon Dioxide BUN 37 H Creatinine 2.1 H Glucose 160 H POC Glucose 172 H Hemoglobin A1c Lactic Acid Calcium 8.3 L Phosphorus Magnesium Transferrin AST ALT Alkaline Phosphatase Total Creatine Kinase CK-MB (CK-2) Serum Total Protein Total Protein Albumin Mhvwa-7-Zqgfyocou Zajcw-5-Psmwpbkfy Gamma Globulins PEP Interpretation HDL Cholesterol TSH Arterial Blood Glucose Arterial Blood Ionized Calcium Urine WBC (Auto) Urine Creatinine Urine Total Protein Crossmatch 05/08/21 05/08/21 05/08/21 05:20 09:34 11:35 WBC RBC Hgb Hct MCH RDW Plt Count Seg Neuts % (Manual) Lymphocytes % (Manual) Nucleated RBC % Seg Neutrophils # Man Lymphocytes # (Manual) PT ABG pH POC ABG pCO2 POC ABG pO2 ABG pO2 ABG O2 Saturation ABG Base Excess ABG Hemoglobin ABG Oxyhemoglobin ABG Potassium ABG Chloride ABG Glucose Oxyhemoglobin Carboxyhemoglobin Sodium Potassium Chloride Carbon Dioxide BUN Creatinine Glucose POC Glucose 148 H 208 H Hemoglobin A1c Lactic Acid Calcium Phosphorus Magnesium Transferrin AST ALT Alkaline Phosphatase Total Creatine Kinase CK-MB (CK-2) Serum Total Protein Total Protein Albumin Ahhsx-3-Ljplpfkjb Gswtw-9-Qvensdmzh Gamma Globulins PEP Interpretation HDL Cholesterol TSH Arterial Blood Glucose Arterial Blood Ionized Calcium Urine WBC (Auto) Urine Creatinine 56.0 H Urine Total Protein Crossmatch 05/08/21 05/08/21 05/09/21 16:55 23:57 05:30 WBC 12.8 H RBC 2.98 L Hgb 8.1 L Hct 25.4 L MCH 27 L RDW 15.4 H Plt Count Seg Neuts % (Manual) Lymphocytes % (Manual) Nucleated RBC % Seg Neutrophils # Man Lymphocytes # (Manual) PT ABG pH POC ABG pCO2 POC ABG pO2 ABG pO2 ABG O2 Saturation ABG Base Excess ABG Hemoglobin ABG Oxyhemoglobin ABG Potassium ABG Chloride ABG Glucose Oxyhemoglobin Carboxyhemoglobin Sodium Potassium Chloride Carbon Dioxide BUN Creatinine Glucose POC Glucose 179 H 183 H Hemoglobin A1c Lactic Acid Calcium Phosphorus Magnesium Transferrin AST ALT Alkaline Phosphatase Total Creatine Kinase CK-MB (CK-2) Serum Total Protein Total Protein Albumin Lyqbe-7-Emmfxkbli Vrebx-4-Wtxwxhckj Gamma Globulins PEP Interpretation HDL Cholesterol TSH Arterial Blood Glucose Arterial Blood Ionized Calcium Urine WBC (Auto) Urine Creatinine Urine Total Protein Crossmatch 05/09/21 05/09/21 05/09/21 05:30 05:31 11:24 WBC RBC Hgb Hct MCH RDW Plt Count Seg Neuts % (Manual) Lymphocytes % (Manual) Nucleated RBC % Seg Neutrophils # Man Lymphocytes # (Manual) PT ABG pH POC ABG pCO2 POC ABG pO2 ABG pO2 ABG O2 Saturation ABG Base Excess ABG Hemoglobin ABG Oxyhemoglobin ABG Potassium ABG Chloride ABG Glucose Oxyhemoglobin Carboxyhemoglobin Sodium 150 H Potassium 3.2 L Chloride 110.2 H Carbon Dioxide BUN 37 H Creatinine 1.8 H Glucose 191 H POC Glucose 120 H 197 H Hemoglobin A1c Lactic Acid Calcium Phosphorus Magnesium Transferrin AST ALT Alkaline Phosphatase Total Creatine Kinase CK-MB (CK-2) Serum Total Protein Total Protein Albumin Wpygi-8-Zwwxahjdx Ayxol-4-Nwjxmandl Gamma Globulins PEP Interpretation HDL Cholesterol TSH Arterial Blood Glucose Arterial Blood Ionized Calcium Urine WBC (Auto) Urine Creatinine Urine Total Protein Crossmatch 05/09/21 05/09/21 05/10/21 15:49 23:42 05:00 WBC RBC 2.99 L Hgb 8.2 L Hct 25.6 L MCH RDW 15.4 H Plt Count 456 H Seg Neuts % (Manual) Lymphocytes % (Manual) Nucleated RBC % Seg Neutrophils # Man Lymphocytes # (Manual) PT ABG pH POC ABG pCO2 POC ABG pO2 ABG pO2 ABG O2 Saturation ABG Base Excess ABG Hemoglobin ABG Oxyhemoglobin ABG Potassium ABG Chloride ABG Glucose Oxyhemoglobin Carboxyhemoglobin Sodium Potassium Chloride Carbon Dioxide BUN Creatinine Glucose POC Glucose 318 H 152 H Hemoglobin A1c Lactic Acid Calcium Phosphorus Magnesium Transferrin AST ALT Alkaline Phosphatase Total Creatine Kinase CK-MB (CK-2) Serum Total Protein Total Protein Albumin Stywj-3-Lbizvbxkb Fbbpq-9-[place] Gamma Globulins PEP Interpretation HDL Cholesterol TSH Arterial Blood Glucose Arterial Blood Ionized Calcium Urine WBC (Auto) Urine Creatinine Urine Total Protein Crossmatch 05/10/21 05/10/21 05/10/21 05:00 05:30 12:08 WBC RBC Hgb Hct MCH RDW Plt Count Seg Neuts % (Manual) Lymphocytes % (Manual) Nucleated RBC % Seg Neutrophils # Man Lymphocytes # (Manual) PT ABG pH POC ABG pCO2 POC ABG pO2 ABG pO2 ABG O2 Saturation ABG Base Excess ABG Hemoglobin ABG Oxyhemoglobin ABG Potassium ABG Chloride ABG Glucose Oxyhemoglobin Carboxyhemoglobin Sodium 148 H Potassium 3.4 L Chloride 110.5 H Carbon Dioxide BUN 36 H Creatinine 1.6 H Glucose 185 H POC Glucose 168 H 193 H Hemoglobin A1c Lactic Acid Calcium Phosphorus Magnesium Transferrin AST ALT Alkaline Phosphatase Total Creatine Kinase CK-MB (CK-2) Serum Total Protein Total Protein Albumin Jjhkc-1-Ajlyolert Jvzzp-5-Pyrawdmcx Gamma Globulins PEP Interpretation HDL Cholesterol TSH Arterial Blood Glucose Arterial Blood Ionized Calcium Urine WBC (Auto) Urine Creatinine Urine Total Protein Crossmatch 05/10/21 05/10/21 05/11/21 18:02 23:25 05:40 WBC RBC 3.11 L Hgb 8.3 L Hct 26.6 L MCH 27 L RDW 15.7 H Plt Count 489 H Seg Neuts % (Manual) Lymphocytes % (Manual) Nucleated RBC % Seg Neutrophils # Man Lymphocytes # (Manual) PT ABG pH POC ABG pCO2 POC ABG pO2 ABG pO2 ABG O2 Saturation ABG Base Excess ABG Hemoglobin ABG Oxyhemoglobin ABG Potassium ABG Chloride ABG Glucose Oxyhemoglobin Carboxyhemoglobin Sodium Potassium Chloride Carbon Dioxide BUN Creatinine Glucose POC Glucose 205 H 171 H Hemoglobin A1c Lactic Acid Calcium Phosphorus Magnesium Transferrin AST ALT Alkaline Phosphatase Total Creatine Kinase CK-MB (CK-2) Serum Total Protein Total Protein Albumin Ulgma-5-Exfmjysvg Wtink-3-Btkefflxo Gamma Globulins PEP Interpretation HDL Cholesterol TSH Arterial Blood Glucose Arterial Blood Ionized Calcium Urine WBC (Auto) Urine Creatinine Urine Total Protein Crossmatch 05/11/21 05/11/21 05/11/21 05:40 11:45 18:23 WBC RBC Hgb Hct MCH RDW Plt Count Seg Neuts % (Manual) Lymphocytes % (Manual) Nucleated RBC % Seg Neutrophils # Man Lymphocytes # (Manual) PT ABG pH POC ABG pCO2 POC ABG pO2 ABG pO2 ABG O2 Saturation ABG Base Excess ABG Hemoglobin ABG Oxyhemoglobin ABG Potassium ABG Chloride ABG Glucose Oxyhemoglobin Carboxyhemoglobin Sodium 149 H Potassium Chloride 112.0 H Carbon Dioxide BUN 36 H Creatinine 1.4 H Glucose 164 H POC Glucose 176 H 203 H Hemoglobin A1c Lactic Acid Calcium Phosphorus Magnesium Transferrin AST ALT Alkaline Phosphatase Total Creatine Kinase CK-MB (CK-2) Serum Total Protein Total Protein Albumin Kbanf-9-Xtufkhqat Disxx-1-Qxldyfauf Gamma Globulins PEP Interpretation HDL Cholesterol TSH Arterial Blood Glucose Arterial Blood Ionized Calcium Urine WBC (Auto) Urine Creatinine Urine Total Protein Crossmatch 05/12/21 05/12/21 05/12/21 00:30 04:10 04:10 WBC RBC 3.13 L Hgb 8.4 L Hct 26.6 L MCH 27 L RDW 15.7 H Plt Count 496 H Seg Neuts % (Manual) Lymphocytes % (Manual) Nucleated RBC % Seg Neutrophils # Man Lymphocytes # (Manual) PT ABG pH POC ABG pCO2 POC ABG pO2 ABG pO2 ABG O2 Saturation ABG Base Excess ABG Hemoglobin ABG Oxyhemoglobin ABG Potassium ABG Chloride ABG Glucose Oxyhemoglobin Carboxyhemoglobin Sodium Potassium Chloride Carbon Dioxide BUN 36 H Creatinine 1.3 H Glucose 182 H POC Glucose 161 H Hemoglobin A1c Lactic Acid Calcium 8.3 L Phosphorus Magnesium Transferrin AST ALT Alkaline Phosphatase Total Creatine Kinase CK-MB (CK-2) Serum Total Protein Total Protein Albumin Htxsh-7-Xdqwcuaug Tqozf-2-Ukwnejehh Gamma Globulins PEP Interpretation HDL Cholesterol TSH Arterial Blood Glucose Arterial Blood Ionized Calcium Urine WBC (Auto) Urine Creatinine Urine Total Protein Crossmatch 05/12/21 05/12/21 05/12/21 05:24 11:50 17:45 WBC RBC Hgb Hct MCH RDW Plt Count Seg Neuts % (Manual) Lymphocytes % (Manual) Nucleated RBC % Seg Neutrophils # Man Lymphocytes # (Manual) PT ABG pH POC ABG pCO2 POC ABG pO2 ABG pO2 ABG O2 Saturation ABG Base Excess ABG Hemoglobin ABG Oxyhemoglobin ABG Potassium ABG Chloride ABG Glucose Oxyhemoglobin Carboxyhemoglobin Sodium Potassium Chloride Carbon Dioxide BUN Creatinine Glucose POC Glucose 177 H 180 H 187 H Hemoglobin A1c Lactic Acid Calcium Phosphorus Magnesium Transferrin AST ALT Alkaline Phosphatase Total Creatine Kinase CK-MB (CK-2) Serum Total Protein Total Protein Albumin Vpjtc-3-Yssfxbdmw Xnbnc-0-Ctawzcrhy Gamma Globulins PEP Interpretation HDL Cholesterol TSH Arterial Blood Glucose Arterial Blood Ionized Calcium Urine WBC (Auto) Urine Creatinine Urine Total Protein Crossmatch 05/12/21 05/13/21 05/13/21 23:20 04:24 04:24 WBC RBC 3.10 L Hgb 8.5 L Hct 26.3 L MCH RDW 15.6 H Plt Count 503 H Seg Neuts % (Manual) Lymphocytes % (Manual) Nucleated RBC % Seg Neutrophils # Man Lymphocytes # (Manual) PT ABG pH POC ABG pCO2 POC ABG pO2 ABG pO2 ABG O2 Saturation ABG Base Excess ABG Hemoglobin ABG Oxyhemoglobin ABG Potassium ABG Chloride ABG Glucose Oxyhemoglobin Carboxyhemoglobin Sodium Potassium Chloride Carbon Dioxide BUN 30 H Creatinine Glucose 138 H POC Glucose 142 H Hemoglobin A1c Lactic Acid Calcium 8.3 L Phosphorus Magnesium 1.60 L Transferrin AST ALT Alkaline Phosphatase Total Creatine Kinase CK-MB (CK-2) Serum Total Protein Total Protein Albumin Qdaij-5-Iggkvaxyh Obisf-8-Vciuiirhn Gamma Globulins PEP Interpretation HDL Cholesterol TSH Arterial Blood Glucose Arterial Blood Ionized Calcium Urine WBC (Auto) Urine Creatinine Urine Total Protein Crossmatch 05/13/21 05/13/21 05/13/21 05:29 11:44 16:52 WBC RBC Hgb Hct MCH RDW Plt Count Seg Neuts % (Manual) Lymphocytes % (Manual) Nucleated RBC % Seg Neutrophils # Man Lymphocytes # (Manual) PT ABG pH POC ABG pCO2 POC ABG pO2 ABG pO2 ABG O2 Saturation ABG Base Excess ABG Hemoglobin ABG Oxyhemoglobin ABG Potassium ABG Chloride ABG Glucose Oxyhemoglobin Carboxyhemoglobin Sodium Potassium Chloride Carbon Dioxide BUN Creatinine Glucose POC Glucose 128 H 148 H 160 H Hemoglobin A1c Lactic Acid Calcium Phosphorus Magnesium Transferrin AST ALT Alkaline Phosphatase Total Creatine Kinase CK-MB (CK-2) Serum Total Protein Total Protein Albumin Onvga-6-Uzqhycxpu Knzra-7-Jfvdizqfl Gamma Globulins PEP Interpretation HDL Cholesterol TSH Arterial Blood Glucose Arterial Blood Ionized Calcium Urine WBC (Auto) Urine Creatinine Urine Total Protein Crossmatch 01/21/22 01/22/22 01/22/22 23:25 04:43 04:43 WBC RBC 3.02 L Hgb 8.3 L Hct 25.6 L MCH RDW 15.5 H Plt Count 482 H Seg Neuts % (Manual) Lymphocytes % (Manual) Nucleated RBC % Seg Neutrophils # Man Lymphocytes # (Manual) PT ABG pH POC ABG pCO2 POC ABG pO2 ABG pO2 ABG O2 Saturation ABG Base Excess ABG Hemoglobin ABG Oxyhemoglobin ABG Potassium ABG Chloride ABG Glucose Oxyhemoglobin Carboxyhemoglobin Sodium Potassium Chloride Carbon Dioxide BUN 29 H Creatinine Glucose 192 H POC Glucose 167 H Hemoglobin A1c Lactic Acid Calcium 8.1 L Phosphorus Magnesium Transferrin AST ALT Alkaline Phosphatase Total Creatine Kinase CK-MB (CK-2) Serum Total Protein Total Protein Albumin Pqegg-4-Xnwhfgdvk Ucxzz-9-Uqakwqrht Gamma Globulins PEP Interpretation HDL Cholesterol TSH Arterial Blood Glucose Arterial Blood Ionized Calcium Urine WBC (Auto) Urine Creatinine Urine Total Protein Crossmatch 05/14/21 05/14/21 05/14/21 05:37 10:57 10:59 WBC RBC Hgb Hct MCH RDW Plt Count Seg Neuts % (Manual) Lymphocytes % (Manual) Nucleated RBC % Seg Neutrophils # Man Lymphocytes # (Manual) PT ABG pH POC ABG pCO2 POC ABG pO2 ABG pO2 ABG O2 Saturation ABG Base Excess ABG Hemoglobin ABG Oxyhemoglobin ABG Potassium ABG Chloride ABG Glucose Oxyhemoglobin Carboxyhemoglobin Sodium Potassium Chloride Carbon Dioxide BUN Creatinine Glucose POC Glucose 190 H 215 H Hemoglobin A1c Lactic Acid Calcium Phosphorus Magnesium Transferrin AST ALT Alkaline Phosphatase Total Creatine Kinase CK-MB (CK-2) Serum Total Protein Total Protein Albumin Lxbnk-6-Dqpxcopgn Wqjtp-1-Icwvyngxc Gamma Globulins PEP Interpretation HDL Cholesterol TSH Arterial Blood Glucose Arterial Blood Ionized Calcium Urine WBC (Auto) 8.0 H Urine Creatinine Urine Total Protein Crossmatch 05/14/21 05/14/21 05/15/21 18:06 23:41 04:09 WBC 11.5 H RBC 2.80 L Hgb 7.7 L Hct 23.6 L MCH RDW 15.3 H Plt Count Seg Neuts % (Manual) Lymphocytes % (Manual) Nucleated RBC % Seg Neutrophils # Man Lymphocytes # (Manual) PT ABG pH POC ABG pCO2 POC ABG pO2 ABG pO2 ABG O2 Saturation ABG Base Excess ABG Hemoglobin ABG Oxyhemoglobin ABG Potassium ABG Chloride ABG Glucose Oxyhemoglobin Carboxyhemoglobin Sodium Potassium Chloride Carbon Dioxide BUN Creatinine Glucose POC Glucose 166 H 189 H Hemoglobin A1c Lactic Acid Calcium Phosphorus Magnesium Transferrin AST ALT Alkaline Phosphatase Total Creatine Kinase CK-MB (CK-2) Serum Total Protein Total Protein Albumin Qvkrw-8-Hikojrgfu Ympij-5-Vcqbqclwo Gamma Globulins PEP Interpretation HDL Cholesterol TSH Arterial Blood Glucose Arterial Blood Ionized Calcium Urine WBC (Auto) Urine Creatinine Urine Total Protein Crossmatch 05/15/21 05/15/21 05/15/21 04:09 05:51 11:33 WBC RBC Hgb Hct MCH RDW Plt Count Seg Neuts % (Manual) Lymphocytes % (Manual) Nucleated RBC % Seg Neutrophils # Man Lymphocytes # (Manual) PT ABG pH POC ABG pCO2 POC ABG pO2 ABG pO2 ABG O2 Saturation ABG Base Excess ABG Hemoglobin ABG Oxyhemoglobin ABG Potassium ABG Chloride ABG Glucose Oxyhemoglobin Carboxyhemoglobin Sodium Potassium Chloride Carbon Dioxide BUN 22 H Creatinine Glucose 148 H POC Glucose 161 H 163 H Hemoglobin A1c Lactic Acid Calcium 8.2 L Phosphorus 2.00 L D Magnesium Transferrin AST ALT Alkaline Phosphatase Total Creatine Kinase CK-MB (CK-2) Serum Total Protein Total Protein Albumin Fnfam-2-Hywwpzumz Sdmuw-7-Cgwttzuap Gamma Globulins PEP Interpretation HDL Cholesterol TSH Arterial Blood Glucose Arterial Blood Ionized Calcium Urine WBC (Auto) Urine Creatinine Urine Total Protein Crossmatch
--- NOTE | 2021-05-15 15:44 | Event Note ---
Date: 05/15/21 CT scan demonstrates patient has anatomy adequate for IR guided gastrostomy tube placement. Case management attempted to contact LT[facility] to assess if G tube needed for transfer to LTAC. No one available at admissions for answer. Awaiting contact back on sunday. If required, will make arrangements for G tube placement.
--- NOTE | 2021-05-15 15:58 | Progress Note ---
Assessment and Plan Patient status post tracheostomy 2 days ago. Trach dressing is dry and clean today. Patient is being nutritionally maintained with a nasogastric tube. Request for IR to place PEG tube anticipated. Subjective Date of service: 05/15/21 Narrative: Nursing report CT of the abdomen ordered by IR in preparation for placement of PEG tube. CT images reviewed and appear to be within normal limits. Objective Vital Signs - 12hr 05/15/21 05/15/21 05/15/21 04:00 04:55 05:00 Temperature 100.4 F H Pulse Rate 107 H 110 H 114 H Pulse Rate [ From Monitor] Pulse Rate [ Left Dorsalis Pedis] Pulse Rate [ Left Radial] Pulse Rate [ Right Dorsalis Pedis] Pulse Rate [ Right Radial] Respiratory 24 20 Rate Blood Pressure 153/79 153/79 142/61 O2 Sat by Pulse 97 98 98 Oximetry O2 Sat by Pulse Oximetry [ Assessment] 05/15/21 05/15/21 05/15/21 06:00 07:00 07:10 Temperature 100.4 F H Pulse Rate 110 H 109 H Pulse Rate [ From Monitor] Pulse Rate [ Left Dorsalis Pedis] Pulse Rate [ Left Radial] Pulse Rate [ Right Dorsalis Pedis] Pulse Rate [ Right Radial] Respiratory 14 15 Rate Blood Pressure 135/68 137/63 O2 Sat by Pulse 98 98 Oximetry O2 Sat by Pulse Oximetry [ Assessment] 05/15/21 05/15/21 05/15/21 07:40 08:00 08:20 Temperature 100.4 F H Pulse Rate 100 H Pulse Rate [ 111 H From Monitor] Pulse Rate [ 110 H Left Dorsalis Pedis] Pulse Rate [ 110 H Left Radial] Pulse Rate [ 110 H Right Dorsalis Pedis] Pulse Rate [ 110 H Right Radial] Respiratory 14 Rate Blood Pressure 129/66 137/63 O2 Sat by Pulse 98 98 Oximetry O2 Sat by Pulse 98 Oximetry [ Assessment] 05/15/21 05/15/21 05/15/21 08:21 09:00 10:00 Temperature Pulse Rate 105 H 102 H 106 H Pulse Rate [ From Monitor] Pulse Rate [ Left Dorsalis Pedis] Pulse Rate [ Left Radial] Pulse Rate [ Right Dorsalis Pedis] Pulse Rate [ Right Radial] Respiratory 14 14 Rate Blood Pressure 129/66 137/73 O2 Sat by Pulse 97 99 Oximetry O2 Sat by Pulse Oximetry [ Assessment] 05/15/21 05/15/21 05/15/21 10:09 11:00 12:00 Temperature Pulse Rate 106 H 105 H 97 H Pulse Rate [ 97 H From Monitor] Pulse Rate [ Left Dorsalis Pedis] Pulse Rate [ Left Radial] Pulse Rate [ Right Dorsalis Pedis] Pulse Rate [ Right Radial] Respiratory 14 14 Rate Blood Pressure 137/73 116/80 122/65 O2 Sat by Pulse 99 99 Oximetry O2 Sat by Pulse Oximetry [ Assessment] 05/15/21 05/15/21 12:18 12:33 Temperature 99.6 F Pulse Rate 97 H Pulse Rate [ From Monitor] Pulse Rate [ Left Dorsalis Pedis] Pulse Rate [ Left Radial] Pulse Rate [ Right Dorsalis Pedis] Pulse Rate [ Right Radial] Respiratory Rate Blood Pressure 122/65 O2 Sat by Pulse 99 Oximetry O2 Sat by Pulse Oximetry [ Assessment] - General physical appearance no distress - Neck no masses, no bruits, trachea midline, other (Tracheostomy dressing dry and clean. Tracheostomy functional) - Labs 05/15/21 04:09 05/15/21 04:09 Diabetes panel 05/15/21 Range/Units 04:09 Sodium 140 (137-145) mmol/L Potassium 3.6 (3.6-5.0) mmol/L Chloride 106.5 (98-107) mmol/L Carbon Dioxide 24 (22-30) mmol/L BUN 22 H (7-17) mg/dL Creatinine 1.1 (0.6-1.2) mg/dL Glucose 148 H (65-100) mg/dL Calcium 8.2 L (8.4-10.2) mg/dL Calcium panel 05/15/21 Range/Units 04:09 Calcium 8.2 L (8.4-10.2) mg/dL Phosphorus 2.00 L D (2.5-4.5) mg/dL Pituitary panel 05/15/21 Range/Units 04:09 Sodium 140 (137-145) mmol/L Potassium 3.6 (3.6-5.0) mmol/L Chloride 106.5 (98-107) mmol/L Carbon Dioxide 24 (22-30) mmol/L BUN 22 H (7-17) mg/dL Creatinine 1.1 (0.6-1.2) mg/dL Glucose 148 H (65-100) mg/dL Calcium 8.2 L (8.4-10.2) mg/dL Adrenal panel 05/15/21 Range/Units 04:09 Sodium 140 (137-145) mmol/L Potassium 3.6 (3.6-5.0) mmol/L Chloride 106.5 (98-107) mmol/L Carbon Dioxide 24 (22-30) mmol/L BUN 22 H (7-17) mg/dL Creatinine 1.1 (0.6-1.2) mg/dL Glucose 148 H (65-100) mg/dL Calcium 8.2 L (8.4-10.2) mg/dL
[2021-05-16] MEDS: INSULIN LISPRO 100 UNIT/ML SUB-Q SCH ×4 (00:36→18:28)
[2021-05-16 05:38] LABS: Hematocrit 23.7 % (30.3-42.9); Hemoglobin 7.6 gm/dl (10.1-14.3); Mean Corpuscular HGB Conc 32 % (30-34); Mean Corpuscular Volume 85 fl (79-97); Platelet Count 422 K/mm3 (140-440); Red Blood Count 2.79 M/mm3 (3.65-5.03); Red Cell Distribution Width 15.9 % (13.2-15.2)
[2021-05-16 05:52] LABS: BUN/Creatinine Ratio 20; Blood Urea Nitrogen 20 mg/dL (7-17); Calcium 8.3 mg/dL (8.4-10.2); Hemolysis Index 11
[2021-05-16] MEDS: LEVOTHYROXINE 50 MCG TAB PO SCH (06:29)
[2021-05-16] MEDS ORDERED: POTASSIUM CHLORIDE 20 MEQ PACKET FEEDTUBE SCH (08:30)
[2021-05-16] MEDS: SODIUM BICARBONATE 650 MG TAB PO SCH ×3 (08:55→21:34)
[2021-05-16] MEDS: FAMOTIDINE 10 MG TAB FEEDTUBE SCH ×2 (09:30→21:35)
[2021-05-16] MEDS: amLODIPine 5 MG TAB PO SCH (09:30)
[2021-05-16] MEDS: ASPIRIN 81 MG TAB CHEW FEEDTUBE SCH (09:30)
[2021-05-16] MEDS: HEPARIN 5,000 UNIT/1 ML VIAL SUB-Q SCH ×2 (09:31→21:35)
[2021-05-16] MEDS: SENNOSIDES/DOCUSATE SODIUM 8.6/50 MG TAB FEEDTUBE SCH ×2 (09:31→21:34)
[2021-05-16] MEDS ORDERED: SODIUM CHLORIDE 0.9% 50 ML IVPB IV PRN (09:47)
[2021-05-16] MEDS ORDERED: DEXTROSE 10% *Hypoglycemia IV PRN (10:50)
--- NOTE | 2021-05-16 11:04 | Cat Scan Report ---
CT ABDOMEN AND PELVIS WITHOUT CONTRAST INDICATION / CLINICAL INFORMATION: post hernia reduction wo contrast. TECHNIQUE: Axial CT images were obtained through the abdomen and pelvis without IV contrast. All CT scans at this location are performed using CT dose reduction for ALARA by means of automated exposure control. COMPARISON: None available. FINDINGS: LOWER CHEST: Multilobar pneumonia involving the lower chest with small bilateral effusions. LIVER: No significant abnormality. GALLBLADDER: No significant abnormality. PANCREAS: No significant abnormality. SPLEEN: No significant abnormality. ADRENALS: No significant abnormality. RIGHT KIDNEY / URETER: No significant abnormality. LEFT KIDNEY / URETER: No significant abnormality. STOMACH / SMALL BOWEL: Enteric tube noted with tip in the stomach antrum versus proximal duodenum. COLON: No significant abnormality. APPENDIX: No significant abnormality. PERITONEUM: No free fluid, free air or organized collection. LYMPH NODES: No significant adenopathy. AORTA / ARTERIES/ VEINS: Mild atherosclerotic calcification without acute abnormality. URINARY BLADDER: Contracted around a Luther catheter. REPRODUCTIVE ORGANS: No significant abnormality. ADDITIONAL FINDINGS: None. SKELETAL SYSTEM: Multilevel degenerative changes of the thoracolumbar spine. IMPRESSION: 1. Multilobar pneumonia involving the visualized lower lung cannon with small bilateral effusions. 2. Enteric tube noted with tip in stomach antrum versus proximal duodenum. 3. No CT findings of hernia repair or abdominal/inguinal hernia. Signer Name: Bertrand Gillis MD Signed: 05/15/2021 8:48 AM Workstation Name: [id number]
--- NOTE | 2021-05-16 11:36 | Progress Note ---
Assessment and Plan 80 y/o female with altered mental state, severe electrolyte imbalance with presumptive acute renal failure and hypothermia. 05/16/21: Peg at some point. Once pegged transfer to LTACH. Continue PSV as tolerated. 05/13/21: Trach today. Per CM transfer to LTACH tomorrow. Supportive care 05/12/21: Daily PSV trials. NPO after midnight and chemistry in am. Trach tomorrow and then transfer over the weekend if all goes well. 05/11/21: Awaiting trach and peg placement. Discontinue vascath. Daily pSV trials. 05/10/21: Long discussion over phone with POA. Discussed what I felt was prognosis. Per POA, feels best thing to do at this moment is proceed with trach and peg. Will consult surgery for this. Spoke with renal and they feel she likely will not need HD anymore. Will keep catheter at least another 24-36 hours and likely remove sometime tomorrow. Continue daily PSV and other supportive measures. Placement post Trach. 05/09/21: Will reach out to neuro for more help. Read their note this am but need a definite plan. Would like to meet/talk with POA about next steps but need a better idea of what her neuro prognosis is. Continue daily PSV trials. Prognosis overall appears to be very guarded to poor. 05/08/21: Continue supportive measures. HD per renal. Follow up neuro recs tomorrow. Need to start talking with family about next steps but need neuro input. Daily pSV to document failing. 05/07/21: Continue supportive measures. HD per renal. Follow up neuro recs tomorrow. Need to start talking with family about next steps but need neuro input. 05/06/21: Await neurology recs now that LINCOLN Could not be done. Based on neurology note, no direct source for stroke on MRA. Patient was seen on this day and can be confirmed by staff. Not sure why my note did not save. 05/05/21: follow up neurology notes. They are discussing with cards the LINCOLN. Continue vent support. Poor prognosis. 05/04/21: follow up MRA when done. LINCOLN pending. HD per renal. Daily PSV trials as tolerated. Poor prognosis given MRI findings and lack of responsiveness off sedation. 05/03/21: Follow up Neurology recs for today. Attempt PSV trials. HD on yesterday. Very very guarded prognosis. 05/02/21: MRI today. Repeat cultures. HD per renal. Once MRI results back will discuss with Neurosurgery to see if anything further should be done. Abx per ID. Overall prognosis is very guarded to poor. 04/29/21: Will reach out to neuro after 24-48 hours post spinal tap pending any change in mentation. If improvement, may need to consider shunt placement. If not, not sure that there is anything they can offer. if they still want MRI, then can obtain. Now spiking temps. Blood cultures and UA. Given time frame in Hospital will place on Vanc and Cefepime. Guarded prognosis. HD per renal. Given anasarca, will ask renal about trying to remove volume. 04/28/21: Will discuss with renal about HD again today. MRI vs LP (large amount). Coags are ok. Will attempt to get at least one of these done today. Patient is still on 80% but sat is 100. Will ask DIESEL TECHNICIAN about placing ART line today. Wean FiO2 as tolerated. Guarded prognosis. 04/27/21: HD today per renal. Vascath placed and awaiting CXR for conformation of good placement (done and good). Vent weaning as tolerated for sats >88%. ABG in the AM. Will check Coags in the am and hopeful these are stable. Platelets need to above 50K. Would like to do large volume spinal tap to see if this helps with mentation. Will also obtain MRI once oxygen requirement improves. 04/26/21: WIll electively intubate and then obtain MRI. Pending MRI results, will likely order large volume spinal tap to assess if NPH is a factor or not. Guarded prognosis. Electrolytes are improving. 04/25/21: Continue to follow renal recs. Will reach out to POA either today or tomorrow for further updates. Follow up renal recs. Monitor electrolytes and renal function. Guarded prognosis. 1. Neuro-reached out to neuro surgery, placed consult in regards to CT findings 2. Renal-appreciate help and recs, will follow IV hydration recommendations 3. Blood cultures. Urine was negative 4. Jorge Qing for temp Guarded prognosis CCT 31 minutes. Subjective Date of service: 05/16/21 Principal diagnosis: Acute respiratory failure Interval history: No acute events. Trached but not pegged on Sunday. Mental status is unchanged. Objective Vital Signs - 12hr 05/16/21 05/16/21 05/16/21 00:00 00:55 01:00 Temperature 99.7 F H Pulse Rate 100 H 100 H 100 H Pulse Rate [ 97 H From Monitor] Respiratory 14 15 Rate Blood Pressure 148/79 148/79 134/71 O2 Sat by Pulse 99 98 98 Oximetry O2 Sat by Pulse 99 Oximetry [ Assessment] 05/16/21 05/16/21 05/16/21 02:00 03:00 03:58 Temperature Pulse Rate 93 H 102 H 103 H Pulse Rate [ From Monitor] Respiratory 14 18 Rate Blood Pressure 116/68 116/68 127/76 O2 Sat by Pulse 98 98 98 Oximetry O2 Sat by Pulse Oximetry [ Assessment] 05/16/21 05/16/21 05/16/21 04:00 05:00 06:00 Temperature 99.5 F Pulse Rate 103 H 103 H 104 H Pulse Rate [ 97 H From Monitor] Respiratory 17 17 14 Rate Blood Pressure 127/76 130/82 116/68 O2 Sat by Pulse 98 98 97 Oximetry O2 Sat by Pulse Oximetry [ Assessment] 05/16/21 05/16/21 05/16/21 08:00 09:30 10:00 Temperature 98.6 F Pulse Rate 98 H 98 H 96 H Pulse Rate [ From Monitor] Respiratory 35 H Rate Blood Pressure 133/70 143/67 121/66 O2 Sat by Pulse 99 98 Oximetry O2 Sat by Pulse Oximetry [ Assessment] Constitutional: other (critically ill, somnolent, on vent) Eyes: non-icteric ENT: oropharynx dry Effort: other (tachypneic but not labored) Ascultation: Bilateral: clear Cardiovascular: regular rate and rhythm Gastrointestinal: normoactive bowel sounds Integumentary: normal Extremities: no cyanosis, no edema, pink and warm Neurologic: unable to assess Psychiatric: other (unable to assess) CBC and BMP: 05/16/21 04:24 05/16/21 04:24 ABG, PT/INR, D-dimer: ABG ABG pH 7.487 (7.320-7.450) H 05/02/21 04:34 POC ABG pCO2 35.3 mmHg (32.0-48.0) 05/02/21 04:34 ABG pCO2 31.6 mm Hg 04/21/21 15:47 POC ABG pO2 78.6 mmHg (83-108) L 05/02/21 04:34 ABG pO2 168.1 mm Hg (80.0-90.0) H 04/21/21 15:47 POC ABG HCO3 26.1 05/02/21 04:34 ABG O2 Saturation 96.0 (0-100) 05/02/21 04:34 PT/INR, D-dimer PT 14.7 Sec. (12.2-14.9) 05/13/21 04:24 INR 1.04 (0.87-1.13) 05/13/21 04:24 Abnormal lab findings: Abnormal Labs 04/20/21 04/20/21 04/20/21 17:10 17:10 17:10 WBC 17.4 H RBC 5.19 H Hgb Hct 46.8 H MCH 27 L RDW 17.2 H Plt Count Seg Neuts % (Manual) 98.0 H Lymphocytes % (Manual) 2.0 L Nucleated RBC % 1.0 H Seg Neutrophils # Man 17.1 H Lymphocytes # (Manual) 0.3 L PT ABG pH POC ABG pCO2 POC ABG pO2 ABG pO2 ABG O2 Saturation ABG Base Excess ABG Hemoglobin ABG Oxyhemoglobin ABG Potassium ABG Chloride ABG Glucose Oxyhemoglobin Carboxyhemoglobin Sodium 173 H* Potassium Chloride 132.9 H Carbon Dioxide 17 L BUN 120 H Creatinine 4.2 H Glucose 762 H* POC Glucose Hemoglobin A1c Lactic Acid Calcium Phosphorus Magnesium 3.80 H Transferrin AST 72 H ALT 63 H Alkaline Phosphatase 148 H Total Creatine Kinase 3697 H CK-MB (CK-2) 36.0 H Serum Total Protein Total Protein Albumin 2.2 L Lrfvy-3-Jchalfqrm Rjttr-0-Muxamrctt Gamma Globulins PEP Interpretation HDL Cholesterol TSH Arterial Blood Glucose Arterial Blood Ionized Calcium Urine WBC (Auto) Urine Creatinine Urine Total Protein Crossmatch 04/20/21 04/20/21 04/20/21 17:10 17:10 18:55 WBC RBC Hgb Hct MCH RDW Plt Count Seg Neuts % (Manual) Lymphocytes % (Manual) Nucleated RBC % Seg Neutrophils # Man Lymphocytes # (Manual) PT ABG pH POC ABG pCO2 POC ABG pO2 ABG pO2 ABG O2 Saturation ABG Base Excess ABG Hemoglobin ABG Oxyhemoglobin ABG Potassium ABG Chloride ABG Glucose Oxyhemoglobin Carboxyhemoglobin Sodium Potassium Chloride Carbon Dioxide BUN Creatinine Glucose POC Glucose 574 H Hemoglobin A1c Lactic Acid 2.60 H* Calcium Phosphorus Magnesium Transferrin AST ALT Alkaline Phosphatase Total Creatine Kinase CK-MB (CK-2) Serum Total Protein Total Protein Albumin Kxrev-2-Ttobhddel Ccxdf-5-Fukxmbjqw Gamma Globulins PEP Interpretation HDL Cholesterol TSH 6.040 H Arterial Blood Glucose Arterial Blood Ionized Calcium Urine WBC (Auto) Urine Creatinine Urine Total Protein Crossmatch 04/20/21 04/20/21 04/20/21 22:12 22:58 22:58 WBC RBC Hgb Hct MCH RDW Plt Count Seg Neuts % (Manual) Lymphocytes % (Manual) Nucleated RBC % Seg Neutrophils # Man Lymphocytes # (Manual) PT ABG pH POC ABG pCO2 POC ABG pO2 ABG pO2 ABG O2 Saturation ABG Base Excess ABG Hemoglobin ABG Oxyhemoglobin ABG Potassium ABG Chloride ABG Glucose Oxyhemoglobin Carboxyhemoglobin Sodium 172 H* Potassium 3.2 L Chloride 134.2 H Carbon Dioxide 17 L BUN 112 H Creatinine 3.8 H Glucose 803 H* POC Glucose 554 H Hemoglobin A1c Lactic Acid Calcium 8.3 L Phosphorus Magnesium 3.50 H Transferrin AST ALT Alkaline Phosphatase Total Creatine Kinase CK-MB (CK-2) Serum Total Protein Total Protein Albumin Meklb-0-Pwqlmmaud Pppmh-2-Iuikgatar Gamma Globulins PEP Interpretation HDL Cholesterol TSH Arterial Blood Glucose Arterial Blood Ionized Calcium Urine WBC (Auto) Urine Creatinine Urine Total Protein Crossmatch 04/21/21 04/21/21 04/21/21 00:14 00:22 02:01 WBC RBC Hgb Hct MCH RDW Plt Count Seg Neuts % (Manual) Lymphocytes % (Manual) Nucleated RBC % Seg Neutrophils # Man Lymphocytes # (Manual) PT ABG pH POC ABG pCO2 POC ABG pO2 ABG pO2 ABG O2 Saturation ABG Base Excess ABG Hemoglobin ABG Oxyhemoglobin ABG Potassium ABG Chloride ABG Glucose Oxyhemoglobin Carboxyhemoglobin Sodium 176 H* 175 H* Potassium 2.9 L* 3.0 L Chloride 139.9 H 136.2 H Carbon Dioxide 17 L 19 L BUN 113 H 112 H Creatinine 3.9 H 3.6 H Glucose 729 H* 582 H* POC Glucose > 600 H Hemoglobin A1c Lactic Acid Calcium Phosphorus Magnesium Transferrin AST ALT Alkaline Phosphatase Total Creatine Kinase CK-MB (CK-2) Serum Total Protein Total Protein Albumin Asqnn-2-Hyptodmqx Vpuaw-6-Yznstkvyi Gamma Globulins PEP Interpretation HDL Cholesterol TSH Arterial Blood Glucose Arterial Blood Ionized Calcium Urine WBC (Auto) Urine Creatinine Urine Total Protein Crossmatch 04/21/21 04/21/21 04/21/21 03:11 03:20 03:41 WBC 14.1 H RBC Hgb Hct MCH 27 L RDW 16.8 H Plt Count 114 L Seg Neuts % (Manual) 97.0 H Lymphocytes % (Manual) 3.0 L Nucleated RBC % 1.0 H Seg Neutrophils # Man 13.7 H Lymphocytes # (Manual) 0.4 L PT ABG pH POC ABG pCO2 POC ABG pO2 ABG pO2 52.3 L ABG O2 Saturation 84.5 L ABG Base Excess -2.9 L ABG Hemoglobin ABG Oxyhemoglobin ABG Potassium ABG Chloride ABG Glucose Oxyhemoglobin 82.9 L Carboxyhemoglobin Sodium Potassium Chloride Carbon Dioxide BUN Creatinine Glucose POC Glucose 404 H Hemoglobin A1c Lactic Acid Calcium Phosphorus Magnesium Transferrin AST ALT Alkaline Phosphatase Total Creatine Kinase CK-MB (CK-2) Serum Total Protein Total Protein Albumin Tijnj-8-Nexwllwoj Nqozc-8-Rfxqiqhtb Gamma Globulins PEP Interpretation HDL Cholesterol TSH Arterial Blood Glucose Arterial Blood Ionized Calcium Urine WBC (Auto) Urine Creatinine Urine Total Protein Crossmatch 04/21/21 04/21/21 04/21/21 03:41 04:24 05:45 WBC RBC Hgb Hct MCH RDW Plt Count Seg Neuts % (Manual) Lymphocytes % (Manual) Nucleated RBC % Seg Neutrophils # Man Lymphocytes # (Manual) PT ABG pH POC ABG pCO2 POC ABG pO2 ABG pO2 ABG O2 Saturation ABG Base Excess ABG Hemoglobin ABG Oxyhemoglobin ABG Potassium ABG Chloride ABG Glucose Oxyhemoglobin Carboxyhemoglobin Sodium 179 H* Potassium 2.9 L* Chloride 138.2 H Carbon Dioxide 20 L BUN 111 H Creatinine 3.7 H Glucose 465 H POC Glucose 353 H 280 H Hemoglobin A1c Lactic Acid Calcium Phosphorus Magnesium Transferrin AST 73 H ALT 61 H Alkaline Phosphatase 144 H Total Creatine Kinase CK-MB (CK-2) Serum Total Protein Total Protein Albumin 2.5 L Ygqaj-0-Jttmbjvod Nwfls-2-Ycndlxxtx Gamma Globulins PEP Interpretation HDL Cholesterol TSH Arterial Blood Glucose Arterial Blood Ionized Calcium Urine WBC (Auto) Urine Creatinine Urine Total Protein Crossmatch 04/21/21 04/21/21 04/21/21 06:47 08:01 11:11 WBC RBC Hgb Hct MCH RDW Plt Count Seg Neuts % (Manual) Lymphocytes % (Manual) Nucleated RBC % Seg Neutrophils # Man Lymphocytes # (Manual) PT ABG pH POC ABG pCO2 POC ABG pO2 ABG pO2 ABG O2 Saturation ABG Base Excess ABG Hemoglobin ABG Oxyhemoglobin ABG Potassium ABG Chloride ABG Glucose Oxyhemoglobin Carboxyhemoglobin Sodium Potassium Chloride Carbon Dioxide BUN Creatinine Glucose POC Glucose 260 H 68 L Hemoglobin A1c Lactic Acid Calcium Phosphorus Magnesium Transferrin AST ALT Alkaline Phosphatase Total Creatine Kinase CK-MB (CK-2) Serum Total Protein Total Protein Albumin Fufrj-1-Adgsgqshs Aamxv-1-Lzbfaexxq Gamma Globulins PEP Interpretation HDL Cholesterol TSH Arterial Blood Glucose Arterial Blood Ionized Calcium Urine WBC (Auto) Urine Creatinine 44.3 H Urine Total Protein 12 H Crossmatch 04/21/21 04/21/21 04/21/21 12:51 13:41 14:40 WBC RBC Hgb Hct MCH RDW Plt Count Seg Neuts % (Manual) Lymphocytes % (Manual) Nucleated RBC % Seg Neutrophils # Man Lymphocytes # (Manual) PT ABG pH 7.275 L POC ABG pCO2 POC ABG pO2 63.4 L ABG pO2 ABG O2 Saturation ABG Base Excess ABG Hemoglobin 8.4 L ABG Oxyhemoglobin 89.5 L ABG Potassium ABG Chloride 108.0 H ABG Glucose 404 H Oxyhemoglobin Carboxyhemoglobin Sodium Potassium Chloride Carbon Dioxide BUN Creatinine Glucose POC Glucose 146 H 186 H Hemoglobin A1c Lactic Acid Calcium Phosphorus Magnesium Transferrin AST ALT Alkaline Phosphatase Total Creatine Kinase CK-MB (CK-2) Serum Total Protein Total Protein Albumin Nwvfd-6-Fyoigzduf Iekhk-5-Rikodpbvu Gamma Globulins PEP Interpretation HDL Cholesterol TSH Arterial Blood Glucose 404 H Arterial Blood Ionized Calcium Urine WBC (Auto) Urine Creatinine Urine Total Protein Crossmatch 04/21/21 04/21/21 04/21/21 15:47 16:25 17:57 WBC RBC Hgb Hct MCH RDW Plt Count Seg Neuts % (Manual) Lymphocytes % (Manual) Nucleated RBC % Seg Neutrophils # Man Lymphocytes # (Manual) PT ABG pH 7.486 H POC ABG pCO2 POC ABG pO2 ABG pO2 168.1 H ABG O2 Saturation 99.1 H ABG Base Excess ABG Hemoglobin 8.9 L ABG Oxyhemoglobin ABG Potassium ABG Chloride ABG Glucose Oxyhemoglobin Carboxyhemoglobin Sodium Potassium Chloride Carbon Dioxide BUN Creatinine Glucose POC Glucose 172 H 143 H Hemoglobin A1c Lactic Acid Calcium Phosphorus Magnesium Transferrin AST ALT Alkaline Phosphatase Total Creatine Kinase CK-MB (CK-2) Serum Total Protein Total Protein Albumin Oiyoc-9-Nrlhychok Eeppb-7-Munvzowol Gamma Globulins PEP Interpretation HDL Cholesterol TSH Arterial Blood Glucose Arterial Blood Ionized Calcium Urine WBC (Auto) Urine Creatinine Urine Total Protein Crossmatch 04/21/21 04/21/21 04/21/21 18:49 19:10 20:26 WBC RBC Hgb Hct MCH RDW Plt Count Seg Neuts % (Manual) Lymphocytes % (Manual) Nucleated RBC % Seg Neutrophils # Man Lymphocytes # (Manual) PT ABG pH POC ABG pCO2 POC ABG pO2 ABG pO2 ABG O2 Saturation ABG Base Excess ABG Hemoglobin ABG Oxyhemoglobin ABG Potassium ABG Chloride ABG Glucose Oxyhemoglobin Carboxyhemoglobin Sodium 174 H* Potassium 7.2 H* D Chloride 138.2 H Carbon Dioxide 21 L BUN 99 H Creatinine 4.0 H Glucose 157 H POC Glucose 126 H 190 H Hemoglobin A1c Lactic Acid Calcium Phosphorus Magnesium Transferrin AST 134 H ALT 71 H Alkaline Phosphatase 135 H Total Creatine Kinase 3504 H CK-MB (CK-2) Serum Total Protein Total Protein Albumin 2.2 L Agfdw-7-Qtjcvvysx Mkndd-8-Isbtdgbmk Gamma Globulins PEP Interpretation HDL Cholesterol TSH Arterial Blood Glucose Arterial Blood Ionized Calcium Urine WBC (Auto) Urine Creatinine Urine Total Protein Crossmatch 04/21/21 04/21/21 04/21/21 20:53 21:52 22:55 WBC RBC Hgb Hct MCH RDW Plt Count Seg Neuts % (Manual) Lymphocytes % (Manual) Nucleated RBC % Seg Neutrophils # Man Lymphocytes # (Manual) PT ABG pH POC ABG pCO2 POC ABG pO2 ABG pO2 ABG O2 Saturation ABG Base Excess ABG Hemoglobin ABG Oxyhemoglobin ABG Potassium ABG Chloride ABG Glucose Oxyhemoglobin Carboxyhemoglobin Sodium Potassium Chloride Carbon Dioxide BUN Creatinine Glucose POC Glucose 116 H 135 H 158 H Hemoglobin A1c Lactic Acid Calcium Phosphorus Magnesium Transferrin AST ALT Alkaline Phosphatase Total Creatine Kinase CK-MB (CK-2) Serum Total Protein Total Protein Albumin Lhluv-4-Owqmpzdml Oqwlo-5-Juahtarie Gamma Globulins PEP Interpretation HDL Cholesterol TSH Arterial Blood Glucose Arterial Blood Ionized Calcium Urine WBC (Auto) Urine Creatinine Urine Total Protein Crossmatch 04/21/21 04/22/21 04/22/21 23:00 00:01 00:39 WBC RBC Hgb Hct MCH RDW Plt Count Seg Neuts % (Manual) Lymphocytes % (Manual) Nucleated RBC % Seg Neutrophils # Man Lymphocytes # (Manual) PT ABG pH POC ABG pCO2 POC ABG pO2 ABG pO2 ABG O2 Saturation ABG Base Excess ABG Hemoglobin ABG Oxyhemoglobin ABG Potassium ABG Chloride ABG Glucose Oxyhemoglobin Carboxyhemoglobin Sodium 176 H* 171 H* Potassium Chloride 140.0 H Carbon Dioxide 20 L BUN 98 H Creatinine 3.9 H Glucose 206 H POC Glucose 182 H Hemoglobin A1c Lactic Acid Calcium Phosphorus Magnesium Transferrin AST ALT Alkaline Phosphatase Total Creatine Kinase 3240 H CK-MB (CK-2) Serum Total Protein Total Protein Albumin Itdoq-8-Kzjzedsrz Zakqh-2-Bagewyrdy Gamma Globulins PEP Interpretation HDL Cholesterol TSH Arterial Blood Glucose Arterial Blood Ionized Calcium Urine WBC (Auto) Urine Creatinine Urine Total Protein Crossmatch 04/22/21 04/22/21 04/22/21 00:58 01:04 04:52 WBC 11.2 H RBC Hgb Hct 44.3 H MCH 27 L RDW 17.1 H Plt Count 86 L Seg Neuts % (Manual) 86.0 H Lymphocytes % (Manual) 13.0 L Nucleated RBC % Seg Neutrophils # Man 9.6 H Lymphocytes # (Manual) PT ABG pH POC ABG pCO2 POC ABG pO2 ABG pO2 ABG O2 Saturation ABG Base Excess ABG Hemoglobin ABG Oxyhemoglobin ABG Potassium ABG Chloride ABG Glucose Oxyhemoglobin Carboxyhemoglobin Sodium Potassium Chloride Carbon Dioxide BUN Creatinine Glucose POC Glucose 176 H 143 H Hemoglobin A1c Lactic Acid Calcium Phosphorus Magnesium Transferrin AST ALT Alkaline Phosphatase Total Creatine Kinase CK-MB (CK-2) Serum Total Protein Total Protein Albumin Oxvvt-9-Ezrqmzkbw Rmrun-2-Cgxsxsfnq Gamma Globulins PEP Interpretation HDL Cholesterol TSH Arterial Blood Glucose Arterial Blood Ionized Calcium Urine WBC (Auto) Urine Creatinine Urine Total Protein Crossmatch 04/22/21 04/22/21 04/22/21 06:07 06:09 07:18 WBC RBC Hgb Hct MCH RDW Plt Count Seg Neuts % (Manual) Lymphocytes % (Manual) Nucleated RBC % Seg Neutrophils # Man Lymphocytes # (Manual) PT ABG pH POC ABG pCO2 POC ABG pO2 ABG pO2 ABG O2 Saturation ABG Base Excess ABG Hemoglobin ABG Oxyhemoglobin ABG Potassium ABG Chloride ABG Glucose Oxyhemoglobin Carboxyhemoglobin Sodium Potassium Chloride Carbon Dioxide BUN Creatinine Glucose POC Glucose 206 H 163 H 158 H Hemoglobin A1c Lactic Acid Calcium Phosphorus Magnesium Transferrin AST ALT Alkaline Phosphatase Total Creatine Kinase CK-MB (CK-2) Serum Total Protein Total Protein Albumin Hqscn-4-Zqlazynts Zgfyk-1-Bwcdajnzc Gamma Globulins PEP Interpretation HDL Cholesterol TSH Arterial Blood Glucose Arterial Blood Ionized Calcium Urine WBC (Auto) Urine Creatinine Urine Total Protein Crossmatch 04/22/21 04/22/21 04/22/21 08:59 08:59 08:59 WBC RBC Hgb Hct MCH RDW Plt Count Seg Neuts % (Manual) Lymphocytes % (Manual) Nucleated RBC % Seg Neutrophils # Man Lymphocytes # (Manual) PT ABG pH POC ABG pCO2 POC ABG pO2 ABG pO2 ABG O2 Saturation ABG Base Excess ABG Hemoglobin ABG Oxyhemoglobin ABG Potassium ABG Chloride ABG Glucose Oxyhemoglobin Carboxyhemoglobin Sodium 169 H* Potassium 3.5 L Chloride 134.5 H Carbon Dioxide 20 L BUN 95 H Creatinine 3.6 H Glucose 151 H POC Glucose Hemoglobin A1c Lactic Acid Calcium Phosphorus Magnesium Transferrin AST 121 H ALT 75 H Alkaline Phosphatase 137 H Total Creatine Kinase 3105 H CK-MB (CK-2) Serum Total Protein 5.5 L Total Protein 6.0 L Albumin 2.8 L 2.1 L Njmdz-0-Pernhnltk 0.6 H Ajgre-1-Jrvamxjeq 1.0 H Gamma Globulins 0.6 L PEP Interpretation see below H HDL Cholesterol TSH Arterial Blood Glucose Arterial Blood Ionized Calcium Urine WBC (Auto) Urine Creatinine Urine Total Protein Crossmatch 04/22/21 04/22/21 04/22/21 09:44 10:24 12:20 WBC RBC Hgb Hct MCH RDW Plt Count Seg Neuts % (Manual) Lymphocytes % (Manual) Nucleated RBC % Seg Neutrophils # Man Lymphocytes # (Manual) PT ABG pH POC ABG pCO2 POC ABG pO2 ABG pO2 ABG O2 Saturation ABG Base Excess ABG Hemoglobin ABG Oxyhemoglobin ABG Potassium ABG Chloride ABG Glucose Oxyhemoglobin Carboxyhemoglobin Sodium Potassium Chloride Carbon Dioxide BUN Creatinine Glucose POC Glucose 107 H 131 H Hemoglobin A1c Lactic Acid Calcium Phosphorus Magnesium 2.80 H Transferrin AST ALT Alkaline Phosphatase Total Creatine Kinase CK-MB (CK-2) Serum Total Protein Total Protein Albumin Ibbod-9-Iacwtfozw Hpcur-3-Fkxywqmid Gamma Globulins PEP Interpretation HDL Cholesterol TSH Arterial Blood Glucose Arterial Blood Ionized Calcium Urine WBC (Auto) Urine Creatinine Urine Total Protein Crossmatch 04/22/21 04/22/21 04/22/21 13:19 14:16 15:22 WBC RBC Hgb Hct MCH RDW Plt Count Seg Neuts % (Manual) Lymphocytes % (Manual) Nucleated RBC % Seg Neutrophils # Man Lymphocytes # (Manual) PT ABG pH POC ABG pCO2 POC ABG pO2 ABG pO2 ABG O2 Saturation ABG Base Excess ABG Hemoglobin ABG Oxyhemoglobin ABG Potassium ABG Chloride ABG Glucose Oxyhemoglobin Carboxyhemoglobin Sodium Potassium Chloride Carbon Dioxide BUN Creatinine Glucose POC Glucose 147 H 154 H 136 H Hemoglobin A1c Lactic Acid Calcium Phosphorus Magnesium Transferrin AST ALT Alkaline Phosphatase Total Creatine Kinase CK-MB (CK-2) Serum Total Protein Total Protein Albumin Yrmuj-7-Dvxokxxol Oqpjt-4-Bxuxrursw Gamma Globulins PEP Interpretation HDL Cholesterol TSH Arterial Blood Glucose Arterial Blood Ionized Calcium Urine WBC (Auto) Urine Creatinine Urine Total Protein Crossmatch 04/22/21 04/22/21 04/22/21 15:55 15:55 16:22 WBC RBC Hgb Hct MCH RDW Plt Count Seg Neuts % (Manual) Lymphocytes % (Manual) Nucleated RBC % Seg Neutrophils # Man Lymphocytes # (Manual) PT ABG pH POC ABG pCO2 POC ABG pO2 ABG pO2 ABG O2 Saturation ABG Base Excess ABG Hemoglobin ABG Oxyhemoglobin ABG Potassium ABG Chloride ABG Glucose Oxyhemoglobin Carboxyhemoglobin Sodium 169 H* Potassium Chloride 133.5 H Carbon Dioxide 19 L BUN 94 H Creatinine 3.8 H Glucose 150 H POC Glucose 140 H Hemoglobin A1c 17.1 H Lactic Acid Calcium Phosphorus Magnesium Transferrin AST ALT Alkaline Phosphatase Total Creatine Kinase CK-MB (CK-2) Serum Total Protein Total Protein Albumin Qvdxp-6-Snzyrnhnc Svrbm-9-Hdtvhtpog Gamma Globulins PEP Interpretation HDL Cholesterol TSH Arterial Blood Glucose Arterial Blood Ionized Calcium Urine WBC (Auto) Urine Creatinine Urine Total Protein Crossmatch 04/22/21 04/22/21 04/22/21 18:11 18:26 23:19 WBC RBC Hgb Hct MCH RDW Plt Count Seg Neuts % (Manual) Lymphocytes % (Manual) Nucleated RBC % Seg Neutrophils # Man Lymphocytes # (Manual) PT ABG pH POC ABG pCO2 POC ABG pO2 ABG pO2 ABG O2 Saturation ABG Base Excess ABG Hemoglobin ABG Oxyhemoglobin ABG Potassium ABG Chloride ABG Glucose Oxyhemoglobin Carboxyhemoglobin Sodium Potassium Chloride Carbon Dioxide BUN Creatinine Glucose POC Glucose 146 H 188 H Hemoglobin A1c Lactic Acid Calcium Phosphorus Magnesium Transferrin AST ALT Alkaline Phosphatase Total Creatine Kinase 2497 H CK-MB (CK-2) Serum Total Protein Total Protein Albumin Rwxzt-2-Zzosxlbvy Yalyy-4-Vjxsxlaug Gamma Globulins PEP Interpretation HDL Cholesterol TSH Arterial Blood Glucose Arterial Blood Ionized Calcium Urine WBC (Auto) Urine Creatinine Urine Total Protein Crossmatch 04/23/21 04/23/21 04/23/21 00:27 05:23 07:50 WBC RBC Hgb Hct MCH RDW Plt Count Seg Neuts % (Manual) Lymphocytes % (Manual) Nucleated RBC % Seg Neutrophils # Man Lymphocytes # (Manual) PT ABG pH POC ABG pCO2 POC ABG pO2 ABG pO2 ABG O2 Saturation ABG Base Excess ABG Hemoglobin ABG Oxyhemoglobin ABG Potassium ABG Chloride ABG Glucose Oxyhemoglobin Carboxyhemoglobin Sodium 162 H* Potassium Chloride Carbon Dioxide BUN Creatinine Glucose POC Glucose 212 H 239 H Hemoglobin A1c Lactic Acid Calcium Phosphorus Magnesium Transferrin AST ALT Alkaline Phosphatase Total Creatine Kinase CK-MB (CK-2) Serum Total Protein Total Protein Albumin Ywfkd-3-Yvyxolwdo Usvqt-7-Qfmvroezo Gamma Globulins PEP Interpretation HDL Cholesterol TSH Arterial Blood Glucose Arterial Blood Ionized Calcium Urine WBC (Auto) Urine Creatinine Urine Total Protein Crossmatch 04/23/21 04/23/21 04/23/21 08:13 08:13 08:13 WBC 11.9 H RBC Hgb Hct MCH 26 L RDW 16.5 H Plt Count 72 L Seg Neuts % (Manual) 80.0 H Lymphocytes % (Manual) 5.0 L Nucleated RBC % Seg Neutrophils # Man 9.5 H Lymphocytes # (Manual) 0.6 L PT ABG pH POC ABG pCO2 POC ABG pO2 ABG pO2 ABG O2 Saturation ABG Base Excess ABG Hemoglobin ABG Oxyhemoglobin ABG Potassium ABG Chloride ABG Glucose Oxyhemoglobin Carboxyhemoglobin Sodium 164 H* Potassium Chloride 128.0 H Carbon Dioxide 21 L BUN 93 H Creatinine 3.8 H Glucose 293 H POC Glucose Hemoglobin A1c Lactic Acid Calcium Phosphorus Magnesium Transferrin AST 99 H ALT 70 H Alkaline Phosphatase 147 H Total Creatine Kinase 1803 H CK-MB (CK-2) Serum Total Protein Total Protein 6.1 L Albumin 2.0 L Qqlgh-5-Icstodjrq Tdkig-4-Ciruiepxj Gamma Globulins PEP Interpretation HDL Cholesterol TSH Arterial Blood Glucose Arterial Blood Ionized Calcium Urine WBC (Auto) Urine Creatinine Urine Total Protein Crossmatch 04/23/21 04/23/21 04/23/21 12:06 17:35 18:17 WBC RBC Hgb Hct MCH RDW Plt Count Seg Neuts % (Manual) Lymphocytes % (Manual) Nucleated RBC % Seg Neutrophils # Man Lymphocytes # (Manual) PT ABG pH POC ABG pCO2 POC ABG pO2 ABG pO2 ABG O2 Saturation ABG Base Excess ABG Hemoglobin ABG Oxyhemoglobin ABG Potassium ABG Chloride ABG Glucose Oxyhemoglobin Carboxyhemoglobin Sodium 160 H Potassium Chloride Carbon Dioxide BUN Creatinine Glucose POC Glucose 311 H 370 H Hemoglobin A1c Lactic Acid Calcium Phosphorus Magnesium Transferrin AST ALT Alkaline Phosphatase Total Creatine Kinase CK-MB (CK-2) Serum Total Protein Total Protein Albumin Bhwve-2-Ezknvzrzc Acumz-3-Jdbdymqxm Gamma Globulins PEP Interpretation HDL Cholesterol TSH Arterial Blood Glucose Arterial Blood Ionized Calcium Urine WBC (Auto) Urine Creatinine Urine Total Protein Crossmatch 04/24/21 04/24/21 04/24/21 02:13 06:00 06:00 WBC RBC Hgb Hct MCH 27 L RDW 17.0 H Plt Count 58 L Seg Neuts % (Manual) Lymphocytes % (Manual) 2.0 L Nucleated RBC % Seg Neutrophils # Man 8.9 H Lymphocytes # (Manual) 0.2 L PT ABG pH POC ABG pCO2 POC ABG pO2 ABG pO2 ABG O2 Saturation ABG Base Excess ABG Hemoglobin ABG Oxyhemoglobin ABG Potassium ABG Chloride ABG Glucose Oxyhemoglobin Carboxyhemoglobin Sodium 160 H Potassium Chloride Carbon Dioxide BUN Creatinine Glucose POC Glucose Hemoglobin A1c Lactic Acid Calcium Phosphorus Magnesium 2.90 H Transferrin AST ALT Alkaline Phosphatase Total Creatine Kinase CK-MB (CK-2) Serum Total Protein Total Protein Albumin Edbtp-1-Cnytxqrgy Byaia-9-Jqexqoaom Gamma Globulins PEP Interpretation HDL Cholesterol TSH Arterial Blood Glucose Arterial Blood Ionized Calcium Urine WBC (Auto) Urine Creatinine Urine Total Protein Crossmatch 04/24/21 04/24/21 04/24/21 07:46 08:15 11:34 WBC RBC Hgb Hct MCH RDW Plt Count Seg Neuts % (Manual) Lymphocytes % (Manual) Nucleated RBC % Seg Neutrophils # Man Lymphocytes # (Manual) PT ABG pH POC ABG pCO2 POC ABG pO2 ABG pO2 ABG O2 Saturation ABG Base Excess ABG Hemoglobin ABG Oxyhemoglobin ABG Potassium ABG Chloride ABG Glucose Oxyhemoglobin Carboxyhemoglobin Sodium 159 H Potassium Chloride 125.6 H Carbon Dioxide 19 L BUN 94 H Creatinine 3.7 H Glucose 514 H* POC Glucose 395 H 422 H Hemoglobin A1c Lactic Acid Calcium Phosphorus Magnesium Transferrin AST ALT 61 H Alkaline Phosphatase 155 H Total Creatine Kinase CK-MB (CK-2) Serum Total Protein Total Protein 6.1 L Albumin 1.5 L Modmt-4-Pqtsdcrqd Wehme-6-Qgdprinmi Gamma Globulins PEP Interpretation HDL Cholesterol TSH Arterial Blood Glucose Arterial Blood Ionized Calcium Urine WBC (Auto) Urine Creatinine Urine Total Protein Crossmatch 04/24/21 04/24/21 04/24/21 13:11 14:01 15:03 WBC RBC Hgb Hct MCH RDW Plt Count Seg Neuts % (Manual) Lymphocytes % (Manual) Nucleated RBC % Seg Neutrophils # Man Lymphocytes # (Manual) PT ABG pH POC ABG pCO2 POC ABG pO2 ABG pO2 ABG O2 Saturation ABG Base Excess ABG Hemoglobin ABG Oxyhemoglobin ABG Potassium ABG Chloride ABG Glucose Oxyhemoglobin Carboxyhemoglobin Sodium Potassium Chloride Carbon Dioxide BUN Creatinine Glucose POC Glucose 384 H 423 H 418 H Hemoglobin A1c Lactic Acid Calcium Phosphorus Magnesium Transferrin AST ALT Alkaline Phosphatase Total Creatine Kinase CK-MB (CK-2) Serum Total Protein Total Protein Albumin Lqrda-8-Xkroxdphx Hbvtc-4-Sjxjjwblf Gamma Globulins PEP Interpretation HDL Cholesterol TSH Arterial Blood Glucose Arterial Blood Ionized Calcium Urine WBC (Auto) Urine Creatinine Urine Total Protein Crossmatch 04/24/21 04/24/21 04/24/21 17:29 18:28 19:41 WBC RBC Hgb Hct MCH RDW Plt Count Seg Neuts % (Manual) Lymphocytes % (Manual) Nucleated RBC % Seg Neutrophils # Man Lymphocytes # (Manual) PT ABG pH POC ABG pCO2 POC ABG pO2 ABG pO2 ABG O2 Saturation ABG Base Excess ABG Hemoglobin ABG Oxyhemoglobin ABG Potassium ABG Chloride ABG Glucose Oxyhemoglobin Carboxyhemoglobin Sodium Potassium Chloride Carbon Dioxide BUN Creatinine Glucose POC Glucose 335 H 321 H Hemoglobin A1c Lactic Acid Calcium Phosphorus Magnesium Transferrin 112 L AST ALT Alkaline Phosphatase Total Creatine Kinase CK-MB (CK-2) Serum Total Protein Total Protein Albumin Zthff-9-Xywugmriz Zuvpj-6-Hwcnidjxe Gamma Globulins PEP Interpretation HDL Cholesterol TSH Arterial Blood Glucose Arterial Blood Ionized Calcium Urine WBC (Auto) Urine Creatinine Urine Total Protein Crossmatch 04/24/21 04/25/21 04/25/21 22:33 01:28 02:28 WBC RBC Hgb Hct MCH RDW Plt Count Seg Neuts % (Manual) Lymphocytes % (Manual) Nucleated RBC % Seg Neutrophils # Man Lymphocytes # (Manual) PT ABG pH POC ABG pCO2 POC ABG pO2 ABG pO2 ABG O2 Saturation ABG Base Excess ABG Hemoglobin ABG Oxyhemoglobin ABG Potassium ABG Chloride ABG Glucose Oxyhemoglobin Carboxyhemoglobin Sodium Potassium Chloride Carbon Dioxide BUN Creatinine Glucose POC Glucose 349 H 283 H 247 H Hemoglobin A1c Lactic Acid Calcium Phosphorus Magnesium Transferrin AST ALT Alkaline Phosphatase Total Creatine Kinase CK-MB (CK-2) Serum Total Protein Total Protein Albumin Ezfgr-1-Hmfycjodi Ihkms-9-Yalcfbugw Gamma Globulins PEP Interpretation HDL Cholesterol TSH Arterial Blood Glucose Arterial Blood Ionized Calcium Urine WBC (Auto) Urine Creatinine Urine Total Protein Crossmatch 04/25/21 04/25/21 04/25/21 03:25 04:22 05:40 WBC RBC Hgb Hct MCH RDW Plt Count Seg Neuts % (Manual) Lymphocytes % (Manual) Nucleated RBC % Seg Neutrophils # Man Lymphocytes # (Manual) PT ABG pH POC ABG pCO2 POC ABG pO2 ABG pO2 ABG O2 Saturation ABG Base Excess ABG Hemoglobin ABG Oxyhemoglobin ABG Potassium ABG Chloride ABG Glucose Oxyhemoglobin Carboxyhemoglobin Sodium Potassium Chloride Carbon Dioxide BUN Creatinine Glucose POC Glucose 196 H 207 H 204 H Hemoglobin A1c Lactic Acid Calcium Phosphorus Magnesium Transferrin AST ALT Alkaline Phosphatase Total Creatine Kinase CK-MB (CK-2) Serum Total Protein Total Protein Albumin Jskzq-3-Pkeklkiuv Gxszw-3-Xbjtasjwj Gamma Globulins PEP Interpretation HDL Cholesterol TSH Arterial Blood Glucose Arterial Blood Ionized Calcium Urine WBC (Auto) Urine Creatinine Urine Total Protein Crossmatch 04/25/21 04/25/21 04/25/21 05:45 06:43 07:37 WBC RBC Hgb Hct MCH 27 L RDW 17.0 H Plt Count 64 L Seg Neuts % (Manual) 84.0 H Lymphocytes % (Manual) 6.0 L Nucleated RBC % 1.0 H Seg Neutrophils # Man Lymphocytes # (Manual) 0.4 L PT ABG pH POC ABG pCO2 POC ABG pO2 ABG pO2 ABG O2 Saturation ABG Base Excess ABG Hemoglobin ABG Oxyhemoglobin ABG Potassium ABG Chloride ABG Glucose Oxyhemoglobin Carboxyhemoglobin Sodium Potassium Chloride Carbon Dioxide BUN Creatinine Glucose POC Glucose 238 H 201 H Hemoglobin A1c Lactic Acid Calcium Phosphorus Magnesium Transferrin AST ALT Alkaline Phosphatase Total Creatine Kinase CK-MB (CK-2) Serum Total Protein Total Protein Albumin Veptb-5-Pnkijbohr Hgaph-3-Rltkluwbe Gamma Globulins PEP Interpretation HDL Cholesterol TSH Arterial Blood Glucose Arterial Blood Ionized Calcium Urine WBC (Auto) Urine Creatinine Urine Total Protein Crossmatch 04/25/21 04/25/21 04/25/21 08:11 08:11 08:41 WBC RBC Hgb Hct MCH RDW Plt Count Seg Neuts % (Manual) Lymphocytes % (Manual) Nucleated RBC % Seg Neutrophils # Man Lymphocytes # (Manual) PT ABG pH POC ABG pCO2 POC ABG pO2 ABG pO2 ABG O2 Saturation ABG Base Excess ABG Hemoglobin ABG Oxyhemoglobin ABG Potassium ABG Chloride ABG Glucose Oxyhemoglobin Carboxyhemoglobin Sodium 148 H D Potassium Chloride 115.7 H Carbon Dioxide 21 L BUN 83 H Creatinine 3.6 H Glucose 247 H POC Glucose 220 H Hemoglobin A1c Lactic Acid Calcium Phosphorus Magnesium 2.50 H Transferrin AST 63 H ALT 62 H Alkaline Phosphatase 143 H Total Creatine Kinase CK-MB (CK-2) Serum Total Protein Total Protein 5.4 L Albumin 1.4 L Pecep-9-Aceyygiiu Afwmz-6-Fiowensoj Gamma Globulins PEP Interpretation HDL Cholesterol TSH Arterial Blood Glucose Arterial Blood Ionized Calcium Urine WBC (Auto) Urine Creatinine Urine Total Protein Crossmatch 04/25/21 04/25/21 04/25/21 09:22 10:31 11:44 WBC RBC Hgb Hct MCH RDW Plt Count Seg Neuts % (Manual) Lymphocytes % (Manual) Nucleated RBC % Seg Neutrophils # Man Lymphocytes # (Manual) PT ABG pH POC ABG pCO2 POC ABG pO2 ABG pO2 ABG O2 Saturation ABG Base Excess ABG Hemoglobin ABG Oxyhemoglobin ABG Potassium ABG Chloride ABG Glucose Oxyhemoglobin Carboxyhemoglobin Sodium Potassium Chloride Carbon Dioxide BUN Creatinine Glucose POC Glucose 228 H 215 H 191 H Hemoglobin A1c Lactic Acid Calcium Phosphorus Magnesium Transferrin AST ALT Alkaline Phosphatase Total Creatine Kinase CK-MB (CK-2) Serum Total Protein Total Protein Albumin Fqilh-7-Sbscfhvbt Jgohz-5-Uvlxghxln Gamma Globulins PEP Interpretation HDL Cholesterol TSH Arterial Blood Glucose Arterial Blood Ionized Calcium Urine WBC (Auto) Urine Creatinine Urine Total Protein Crossmatch 04/25/21 04/25/21 04/25/21 12:23 13:48 14:11 WBC RBC Hgb Hct MCH RDW Plt Count Seg Neuts % (Manual) Lymphocytes % (Manual) Nucleated RBC % Seg Neutrophils # Man Lymphocytes # (Manual) PT ABG pH POC ABG pCO2 POC ABG pO2 ABG pO2 ABG O2 Saturation ABG Base Excess ABG Hemoglobin ABG Oxyhemoglobin ABG Potassium ABG Chloride ABG Glucose Oxyhemoglobin Carboxyhemoglobin Sodium Potassium Chloride Carbon Dioxide BUN Creatinine Glucose POC Glucose 229 H 177 H 161 H Hemoglobin A1c Lactic Acid Calcium Phosphorus Magnesium Transferrin AST ALT Alkaline Phosphatase Total Creatine Kinase CK-MB (CK-2) Serum Total Protein Total Protein Albumin Ofsot-6-Otthfhdre Uwdyp-7-Bfjjuymxp Gamma Globulins PEP Interpretation HDL Cholesterol TSH Arterial Blood Glucose Arterial Blood Ionized Calcium Urine WBC (Auto) Urine Creatinine Urine Total Protein Crossmatch 04/25/21 04/25/21 04/26/21 18:01 21:31 01:19 WBC RBC Hgb Hct MCH RDW Plt Count Seg Neuts % (Manual) Lymphocytes % (Manual) Nucleated RBC % Seg Neutrophils # Man Lymphocytes # (Manual) PT ABG pH POC ABG pCO2 POC ABG pO2 ABG pO2 ABG O2 Saturation ABG Base Excess ABG Hemoglobin ABG Oxyhemoglobin ABG Potassium ABG Chloride ABG Glucose Oxyhemoglobin Carboxyhemoglobin Sodium Potassium Chloride Carbon Dioxide BUN Creatinine Glucose POC Glucose 264 H 371 H 356 H Hemoglobin A1c Lactic Acid Calcium Phosphorus Magnesium Transferrin AST ALT Alkaline Phosphatase Total Creatine Kinase CK-MB (CK-2) Serum Total Protein Total Protein Albumin Wvbpe-6-Paalaywon Tnbrb-1-Yejpxwvnw Gamma Globulins PEP Interpretation HDL Cholesterol TSH Arterial Blood Glucose Arterial Blood Ionized Calcium Urine WBC (Auto) Urine Creatinine Urine Total Protein Crossmatch 04/26/21 04/26/21 04/26/21 06:31 09:13 09:33 WBC RBC Hgb Hct MCH 27 L RDW 16.9 H Plt Count 58 L Seg Neuts % (Manual) 77.0 H Lymphocytes % (Manual) 4.0 L Nucleated RBC % 2.0 H Seg Neutrophils # Man Lymphocytes # (Manual) 0.3 L PT ABG pH POC ABG pCO2 POC ABG pO2 ABG pO2 ABG O2 Saturation ABG Base Excess ABG Hemoglobin ABG Oxyhemoglobin ABG Potassium ABG Chloride ABG Glucose Oxyhemoglobin Carboxyhemoglobin Sodium Potassium Chloride Carbon Dioxide BUN Creatinine Glucose POC Glucose 428 H 454 H Hemoglobin A1c Lactic Acid Calcium Phosphorus Magnesium Transferrin AST ALT Alkaline Phosphatase Total Creatine Kinase CK-MB (CK-2) Serum Total Protein Total Protein Albumin Jctfc-3-Bqjmignlw Zzjhh-1-Assrwvcoj Gamma Globulins PEP Interpretation HDL Cholesterol TSH Arterial Blood Glucose Arterial Blood Ionized Calcium Urine WBC (Auto) Urine Creatinine Urine Total Protein Crossmatch 04/26/21 04/26/21 04/26/21 09:33 09:33 11:00 WBC RBC Hgb Hct MCH RDW Plt Count Seg Neuts % (Manual) Lymphocytes % (Manual) Nucleated RBC % Seg Neutrophils # Man Lymphocytes # (Manual) PT ABG pH 7.281 L POC ABG pCO2 POC ABG pO2 66.4 L ABG pO2 ABG O2 Saturation ABG Base Excess ABG Hemoglobin 10.9 L ABG Oxyhemoglobin 91 L ABG Potassium ABG Chloride ABG Glucose 521 H Oxyhemoglobin Carboxyhemoglobin Sodium Potassium Chloride Carbon Dioxide 19 L BUN 98 H Creatinine 3.8 H Glucose 530 H* POC Glucose Hemoglobin A1c Lactic Acid Calcium 8.1 L Phosphorus 5.60 H D Magnesium Transferrin AST 60 H ALT 72 H Alkaline Phosphatase 168 H Total Creatine Kinase CK-MB (CK-2) Serum Total Protein Total Protein 4.6 L Albumin 1.7 L Gfadr-7-Yqhpshlwu Ubfrm-4-Woilusvzb Gamma Globulins PEP Interpretation HDL Cholesterol TSH Arterial Blood Glucose 521 H Arterial Blood Ionized Calcium Urine WBC (Auto) Urine Creatinine Urine Total Protein Crossmatch 04/26/21 04/26/21 04/26/21 12:36 15:39 16:18 WBC RBC Hgb Hct MCH RDW Plt Count Seg Neuts % (Manual) Lymphocytes % (Manual) Nucleated RBC % Seg Neutrophils # Man Lymphocytes # (Manual) PT ABG pH 7.275 L POC ABG pCO2 POC ABG pO2 63.4 L ABG pO2 ABG O2 Saturation ABG Base Excess ABG Hemoglobin 8.4 L ABG Oxyhemoglobin 89.5 L ABG Potassium ABG Chloride 108.0 H ABG Glucose 404 H Oxyhemoglobin Carboxyhemoglobin Sodium Potassium Chloride Carbon Dioxide BUN Creatinine Glucose POC Glucose 414 H 324 H Hemoglobin A1c Lactic Acid Calcium Phosphorus Magnesium Transferrin AST ALT Alkaline Phosphatase Total Creatine Kinase CK-MB (CK-2) Serum Total Protein Total Protein Albumin Obghy-6-Xhnkofqyi Utski-7-Gwoombbrm Gamma Globulins PEP Interpretation HDL Cholesterol TSH Arterial Blood Glucose 404 H Arterial Blood Ionized Calcium Urine WBC (Auto) Urine Creatinine Urine Total Protein Crossmatch 04/26/21 04/27/21 04/27/21 21:14 00:07 05:47 WBC RBC Hgb Hct MCH RDW Plt Count Seg Neuts % (Manual) Lymphocytes % (Manual) Nucleated RBC % Seg Neutrophils # Man Lymphocytes # (Manual) PT ABG pH POC ABG pCO2 POC ABG pO2 ABG pO2 ABG O2 Saturation ABG Base Excess ABG Hemoglobin ABG Oxyhemoglobin ABG Potassium ABG Chloride ABG Glucose Oxyhemoglobin Carboxyhemoglobin Sodium Potassium Chloride Carbon Dioxide BUN Creatinine Glucose POC Glucose 242 H 282 H 214 H Hemoglobin A1c Lactic Acid Calcium Phosphorus Magnesium Transferrin AST ALT Alkaline Phosphatase Total Creatine Kinase CK-MB (CK-2) Serum Total Protein Total Protein Albumin Zjlym-1-Luqkpsinf Vedir-7-Caqzbtruz Gamma Globulins PEP Interpretation HDL Cholesterol TSH Arterial Blood Glucose Arterial Blood Ionized Calcium Urine WBC (Auto) Urine Creatinine Urine Total Protein Crossmatch 04/27/21 04/27/21 04/27/21 06:23 07:43 08:30 WBC RBC Hgb Hct MCH RDW Plt Count Seg Neuts % (Manual) Lymphocytes % (Manual) Nucleated RBC % Seg Neutrophils # Man Lymphocytes # (Manual) PT ABG pH 7.309 L POC ABG pCO2 POC ABG pO2 70.6 L ABG pO2 ABG O2 Saturation ABG Base Excess ABG Hemoglobin 9.16 L ABG Oxyhemoglobin 92.4 L ABG Potassium ABG Chloride ABG Glucose Oxyhemoglobin Carboxyhemoglobin Sodium Potassium Chloride 110.1 H Carbon Dioxide 15 L BUN 109 H Creatinine 4.3 H Glucose 218 H POC Glucose 187 H Hemoglobin A1c Lactic Acid Calcium Phosphorus Magnesium Transferrin AST 53 H ALT Alkaline Phosphatase 148 H Total Creatine Kinase 1000 H CK-MB (CK-2) Serum Total Protein Total Protein 5.2 L Albumin 1.2 L Bnswy-9-Zhomdgadp Jiszi-0-Mkvubxzog Gamma Globulins PEP Interpretation HDL Cholesterol TSH Arterial Blood Glucose Arterial Blood Ionized Calcium Urine WBC (Auto) Urine Creatinine Urine Total Protein Crossmatch 04/27/21 04/27/21 04/27/21 11:54 21:08 23:28 WBC RBC Hgb Hct MCH RDW Plt Count Seg Neuts % (Manual) Lymphocytes % (Manual) Nucleated RBC % Seg Neutrophils # Man Lymphocytes # (Manual) PT ABG pH POC ABG pCO2 POC ABG pO2 ABG pO2 ABG O2 Saturation ABG Base Excess ABG Hemoglobin ABG Oxyhemoglobin ABG Potassium ABG Chloride ABG Glucose Oxyhemoglobin Carboxyhemoglobin Sodium Potassium Chloride Carbon Dioxide BUN Creatinine Glucose POC Glucose 147 H 136 H 201 H Hemoglobin A1c Lactic Acid Calcium Phosphorus Magnesium Transferrin AST ALT Alkaline Phosphatase Total Creatine Kinase CK-MB (CK-2) Serum Total Protein Total Protein Albumin Zfvsw-5-Uclxslwxf Dsnbl-8-Vmtscpfto Gamma Globulins PEP Interpretation HDL Cholesterol TSH Arterial Blood Glucose Arterial Blood Ionized Calcium Urine WBC (Auto) Urine Creatinine Urine Total Protein Crossmatch 04/28/21 04/28/21 04/28/21 04:00 04:00 05:00 WBC 12.6 H RBC 3.59 L Hgb 9.4 L Hct MCH 26 L RDW 16.6 H Plt Count 111 L Seg Neuts % (Manual) Lymphocytes % (Manual) 1.0 L Nucleated RBC % 4.0 H Seg Neutrophils # Man 11.6 H Lymphocytes # (Manual) 0.1 L PT 15.3 H ABG pH POC ABG pCO2 POC ABG pO2 ABG pO2 ABG O2 Saturation ABG Base Excess ABG Hemoglobin ABG Oxyhemoglobin ABG Potassium ABG Chloride ABG Glucose Oxyhemoglobin Carboxyhemoglobin Sodium 147 H Potassium 3.5 L D Chloride Carbon Dioxide BUN 79 H Creatinine 3.8 H Glucose 194 H POC Glucose Hemoglobin A1c Lactic Acid Calcium 8.1 L Phosphorus Magnesium Transferrin AST ALT Alkaline Phosphatase Total Creatine Kinase CK-MB (CK-2) Serum Total Protein Total Protein Albumin Alilo-0-Sloytubti Xugll-4-Sbuggwevc Gamma Globulins PEP Interpretation HDL Cholesterol TSH Arterial Blood Glucose Arterial Blood Ionized Calcium Urine WBC (Auto) Urine Creatinine Urine Total Protein Crossmatch 04/28/21 04/28/21 04/28/21 05:08 05:18 11:04 WBC RBC Hgb Hct MCH RDW Plt Count Seg Neuts % (Manual) Lymphocytes % (Manual) Nucleated RBC % Seg Neutrophils # Man Lymphocytes # (Manual) PT ABG pH POC ABG pCO2 POC ABG pO2 66.5 L ABG pO2 ABG O2 Saturation ABG Base Excess ABG Hemoglobin 9.7 L ABG Oxyhemoglobin 92.5 L ABG Potassium 3.2 L ABG Chloride ABG Glucose 200 H Oxyhemoglobin Carboxyhemoglobin Sodium Potassium Chloride Carbon Dioxide BUN Creatinine Glucose POC Glucose 183 H 174 H Hemoglobin A1c Lactic Acid Calcium Phosphorus Magnesium Transferrin AST ALT Alkaline Phosphatase Total Creatine Kinase CK-MB (CK-2) Serum Total Protein Total Protein Albumin Odmsf-6-Uvwgqtvjw Eewzf-9-Ngbtpcdjo Gamma Globulins PEP Interpretation HDL Cholesterol TSH Arterial Blood Glucose 200 H Arterial Blood Ionized Calcium 4.5 L Urine WBC (Auto) Urine Creatinine Urine Total Protein Crossmatch 04/28/21 04/28/21 04/28/21 17:16 21:14 23:41 WBC RBC Hgb Hct MCH RDW Plt Count Seg Neuts % (Manual) Lymphocytes % (Manual) Nucleated RBC % Seg Neutrophils # Man Lymphocytes # (Manual) PT ABG pH POC ABG pCO2 POC ABG pO2 ABG pO2 ABG O2 Saturation ABG Base Excess ABG Hemoglobin ABG Oxyhemoglobin ABG Potassium ABG Chloride ABG Glucose Oxyhemoglobin Carboxyhemoglobin Sodium Potassium Chloride Carbon Dioxide BUN Creatinine Glucose POC Glucose 135 H 134 H 171 H Hemoglobin A1c Lactic Acid Calcium Phosphorus Magnesium Transferrin AST ALT Alkaline Phosphatase Total Creatine Kinase CK-MB (CK-2) Serum Total Protein Total Protein Albumin Tenry-0-Ovwmbbyvm Qqkpt-9-Vnrxrsozr Gamma Globulins PEP Interpretation HDL Cholesterol TSH Arterial Blood Glucose Arterial Blood Ionized Calcium Urine WBC (Auto) Urine Creatinine Urine Total Protein Crossmatch 04/29/21 04/29/21 04/29/21 01:16 04:00 04:00 WBC 13.3 H RBC 3.12 L Hgb 8.3 L Hct 26.2 L MCH 27 L RDW 16.3 H Plt Count 132 L Seg Neuts % (Manual) Lymphocytes % (Manual) Nucleated RBC % Seg Neutrophils # Man Lymphocytes # (Manual) PT ABG pH POC ABG pCO2 POC ABG pO2 ABG pO2 ABG O2 Saturation ABG Base Excess ABG Hemoglobin ABG Oxyhemoglobin ABG Potassium ABG Chloride ABG Glucose Oxyhemoglobin Carboxyhemoglobin Sodium Potassium Chloride Carbon Dioxide BUN 63 H Creatinine 3.4 H Glucose 249 H POC Glucose 236 H Hemoglobin A1c Lactic Acid Calcium 8.2 L Phosphorus Magnesium Transferrin AST 61 H ALT 71 H Alkaline Phosphatase 170 H Total Creatine Kinase CK-MB (CK-2) Serum Total Protein Total Protein 5.1 L Albumin 1.6 L Blvte-5-Jffkldwhz Lidrv-5-Ysivsdppn Gamma Globulins PEP Interpretation HDL Cholesterol TSH Arterial Blood Glucose Arterial Blood Ionized Calcium Urine WBC (Auto) Urine Creatinine Urine Total Protein Crossmatch 04/29/21 04/29/21 04/29/21 11:35 13:30 16:01 WBC RBC Hgb Hct MCH RDW Plt Count Seg Neuts % (Manual) Lymphocytes % (Manual) Nucleated RBC % Seg Neutrophils # Man Lymphocytes # (Manual) PT ABG pH POC ABG pCO2 POC ABG pO2 ABG pO2 ABG O2 Saturation ABG Base Excess ABG Hemoglobin ABG Oxyhemoglobin ABG Potassium ABG Chloride ABG Glucose Oxyhemoglobin Carboxyhemoglobin Sodium Potassium Chloride Carbon Dioxide BUN Creatinine Glucose POC Glucose 320 H 297 H Hemoglobin A1c Lactic Acid Calcium Phosphorus Magnesium Transferrin AST ALT Alkaline Phosphatase Total Creatine Kinase CK-MB (CK-2) Serum Total Protein Total Protein Albumin Ngyfj-8-Abudeyesw Stmhu-6-Cwfodwfyi Gamma Globulins PEP Interpretation HDL Cholesterol TSH Arterial Blood Glucose Arterial Blood Ionized Calcium Urine WBC (Auto) > 182.0 H Urine Creatinine Urine Total Protein Crossmatch 04/29/21 04/29/21 04/30/21 21:58 23:35 04:00 WBC 11.4 H RBC 3.27 L Hgb 8.7 L Hct 27.5 L MCH 27 L RDW 16.6 H Plt Count Seg Neuts % (Manual) Lymphocytes % (Manual) Nucleated RBC % Seg Neutrophils # Man Lymphocytes # (Manual) PT ABG pH POC ABG pCO2 POC ABG pO2 ABG pO2 ABG O2 Saturation ABG Base Excess ABG Hemoglobin ABG Oxyhemoglobin ABG Potassium ABG Chloride ABG Glucose Oxyhemoglobin Carboxyhemoglobin Sodium Potassium Chloride Carbon Dioxide BUN Creatinine Glucose POC Glucose 260 H 254 H Hemoglobin A1c Lactic Acid Calcium Phosphorus Magnesium Transferrin AST ALT Alkaline Phosphatase Total Creatine Kinase CK-MB (CK-2) Serum Total Protein Total Protein Albumin Jmcfy-3-Wsdjakeze Eidcg-9-Epvjhkxio Gamma Globulins PEP Interpretation HDL Cholesterol TSH Arterial Blood Glucose Arterial Blood Ionized Calcium Urine WBC (Auto) Urine Creatinine Urine Total Protein Crossmatch 04/30/21 04/30/21 04/30/21 04:00 05:17 05:31 WBC RBC Hgb Hct MCH RDW Plt Count Seg Neuts % (Manual) Lymphocytes % (Manual) Nucleated RBC % Seg Neutrophils # Man Lymphocytes # (Manual) PT ABG pH 7.452 H POC ABG pCO2 30.5 L POC ABG pO2 54.5 L ABG pO2 ABG O2 Saturation ABG Base Excess ABG Hemoglobin 10.1 L ABG Oxyhemoglobin 87.4 L ABG Potassium 2.9 L ABG Chloride ABG Glucose 305 H Oxyhemoglobin Carboxyhemoglobin Sodium Potassium 3.1 L Chloride Carbon Dioxide BUN 79 H Creatinine 3.9 H Glucose 275 H POC Glucose 267 H Hemoglobin A1c Lactic Acid Calcium Phosphorus 5.60 H D Magnesium Transferrin AST ALT Alkaline Phosphatase Total Creatine Kinase CK-MB (CK-2) Serum Total Protein Total Protein Albumin Tqeef-7-Pzdezbmxt Pvhtn-9-Fllpurvcn Gamma Globulins PEP Interpretation HDL Cholesterol TSH Arterial Blood Glucose 305 H Arterial Blood Ionized Calcium Urine WBC (Auto) Urine Creatinine Urine Total Protein Crossmatch 04/30/21 04/30/21 04/30/21 12:31 17:50 22:24 WBC RBC Hgb Hct MCH RDW Plt Count Seg Neuts % (Manual) Lymphocytes % (Manual) Nucleated RBC % Seg Neutrophils # Man Lymphocytes # (Manual) PT ABG pH POC ABG pCO2 POC ABG pO2 ABG pO2 ABG O2 Saturation ABG Base Excess ABG Hemoglobin ABG Oxyhemoglobin ABG Potassium ABG Chloride ABG Glucose Oxyhemoglobin Carboxyhemoglobin Sodium Potassium Chloride Carbon Dioxide BUN Creatinine Glucose POC Glucose 259 H 161 H 146 H Hemoglobin A1c Lactic Acid Calcium Phosphorus Magnesium Transferrin AST ALT Alkaline Phosphatase Total Creatine Kinase CK-MB (CK-2) Serum Total Protein Total Protein Albumin Ssqpz-6-Rmecpermk Qiwor-9-Bouaodlhz Gamma Globulins PEP Interpretation HDL Cholesterol TSH Arterial Blood Glucose Arterial Blood Ionized Calcium Urine WBC (Auto) Urine Creatinine Urine Total Protein Crossmatch 05/01/21 05/01/21 05/01/21 00:09 03:30 04:00 WBC 12.0 H RBC 3.08 L Hgb 8.1 L Hct 25.6 L MCH 26 L RDW 16.3 H Plt Count Seg Neuts % (Manual) Lymphocytes % (Manual) Nucleated RBC % Seg Neutrophils # Man Lymphocytes # (Manual) PT ABG pH 7.493 H POC ABG pCO2 POC ABG pO2 ABG pO2 ABG O2 Saturation ABG Base Excess ABG Hemoglobin 9.3 L ABG Oxyhemoglobin ABG Potassium ABG Chloride ABG Glucose 167 H Oxyhemoglobin Carboxyhemoglobin 0.4 L Sodium Potassium Chloride Carbon Dioxide BUN Creatinine Glucose POC Glucose 149 H Hemoglobin A1c Lactic Acid Calcium Phosphorus Magnesium Transferrin AST ALT Alkaline Phosphatase Total Creatine Kinase CK-MB (CK-2) Serum Total Protein Total Protein Albumin Tnbdh-0-Mfmuftxdk Cgdty-4-Qgieauzhg Gamma Globulins PEP Interpretation HDL Cholesterol TSH Arterial Blood Glucose 167 H Arterial Blood Ionized Calcium Urine WBC (Auto) Urine Creatinine Urine Total Protein Crossmatch 05/01/21 05/01/21 05/01/21 04:00 05:48 11:49 WBC RBC Hgb Hct MCH RDW Plt Count Seg Neuts % (Manual) Lymphocytes % (Manual) Nucleated RBC % Seg Neutrophils # Man Lymphocytes # (Manual) PT ABG pH POC ABG pCO2 POC ABG pO2 ABG pO2 ABG O2 Saturation ABG Base Excess ABG Hemoglobin ABG Oxyhemoglobin ABG Potassium ABG Chloride ABG Glucose Oxyhemoglobin Carboxyhemoglobin Sodium Potassium 3.5 L Chloride Carbon Dioxide BUN 62 H Creatinine 3.3 H Glucose 179 H POC Glucose 197 H 167 H Hemoglobin A1c Lactic Acid Calcium 8.3 L Phosphorus Magnesium Transferrin AST ALT Alkaline Phosphatase Total Creatine Kinase CK-MB (CK-2) Serum Total Protein Total Protein Albumin Roumm-3-Qgzhgnvwc Flxko-7-Xztnxyepc Gamma Globulins PEP Interpretation HDL Cholesterol TSH Arterial Blood Glucose Arterial Blood Ionized Calcium Urine WBC (Auto) Urine Creatinine Urine Total Protein Crossmatch 05/01/21 05/01/21 05/02/21 16:24 23:25 04:00 WBC 14.2 H RBC 2.61 L Hgb 6.9 L Hct 22.1 L MCH 27 L RDW 16.1 H Plt Count Seg Neuts % (Manual) Lymphocytes % (Manual) Nucleated RBC % Seg Neutrophils # Man Lymphocytes # (Manual) PT ABG pH POC ABG pCO2 POC ABG pO2 ABG pO2 ABG O2 Saturation ABG Base Excess ABG Hemoglobin ABG Oxyhemoglobin ABG Potassium ABG Chloride ABG Glucose Oxyhemoglobin Carboxyhemoglobin Sodium Potassium Chloride Carbon Dioxide BUN Creatinine Glucose POC Glucose 157 H 147 H Hemoglobin A1c Lactic Acid Calcium Phosphorus Magnesium Transferrin AST ALT Alkaline Phosphatase Total Creatine Kinase CK-MB (CK-2) Serum Total Protein Total Protein Albumin Xsymg-4-Zfljhebtg Sqhzn-8-Asyckblvz Gamma Globulins PEP Interpretation HDL Cholesterol TSH Arterial Blood Glucose Arterial Blood Ionized Calcium Urine WBC (Auto) Urine Creatinine Urine Total Protein Crossmatch 05/02/21 05/02/21 05/02/21 04:00 04:34 05:23 WBC RBC Hgb Hct MCH RDW Plt Count Seg Neuts % (Manual) Lymphocytes % (Manual) Nucleated RBC % Seg Neutrophils # Man Lymphocytes # (Manual) PT ABG pH 7.487 H POC ABG pCO2 POC ABG pO2 78.6 L ABG pO2 ABG O2 Saturation ABG Base Excess ABG Hemoglobin 11.5 L ABG Oxyhemoglobin ABG Potassium ABG Chloride ABG Glucose 122 H Oxyhemoglobin Carboxyhemoglobin Sodium Potassium Chloride Carbon Dioxide BUN 49 H Creatinine 2.8 H Glucose 117 H POC Glucose 119 H Hemoglobin A1c Lactic Acid Calcium Phosphorus Magnesium Transferrin AST ALT Alkaline Phosphatase Total Creatine Kinase CK-MB (CK-2) Serum Total Protein Total Protein Albumin Bhpcb-9-Wqmbrqfvm Wcyyo-3-Xsbtchdyv Gamma Globulins PEP Interpretation HDL Cholesterol TSH Arterial Blood Glucose 122 H Arterial Blood Ionized Calcium Urine WBC (Auto) Urine Creatinine Urine Total Protein Crossmatch 05/02/21 05/02/21 05/02/21 12:00 12:04 17:29 WBC RBC Hgb Hct MCH RDW Plt Count Seg Neuts % (Manual) Lymphocytes % (Manual) Nucleated RBC % Seg Neutrophils # Man Lymphocytes # (Manual) PT ABG pH POC ABG pCO2 POC ABG pO2 ABG pO2 ABG O2 Saturation ABG Base Excess ABG Hemoglobin ABG Oxyhemoglobin ABG Potassium ABG Chloride ABG Glucose Oxyhemoglobin Carboxyhemoglobin Sodium Potassium Chloride Carbon Dioxide BUN Creatinine Glucose POC Glucose 115 H 120 H Hemoglobin A1c Lactic Acid Calcium Phosphorus Magnesium Transferrin AST ALT Alkaline Phosphatase Total Creatine Kinase CK-MB (CK-2) Serum Total Protein Total Protein Albumin Odstl-6-Xfxeysncf Fivse-8-Xdetpwxqn Gamma Globulins PEP Interpretation HDL Cholesterol TSH Arterial Blood Glucose Arterial Blood Ionized Calcium Urine WBC (Auto) Urine Creatinine Urine Total Protein Crossmatch See Detail 05/02/21 05/03/21 05/03/21 23:36 04:00 04:00 WBC 13.9 H RBC 3.22 L Hgb 8.7 L Hct 27.4 L MCH 27 L RDW 15.8 H Plt Count Seg Neuts % (Manual) Lymphocytes % (Manual) Nucleated RBC % Seg Neutrophils # Man Lymphocytes # (Manual) PT ABG pH POC ABG pCO2 POC ABG pO2 ABG pO2 ABG O2 Saturation ABG Base Excess ABG Hemoglobin ABG Oxyhemoglobin ABG Potassium ABG Chloride ABG Glucose Oxyhemoglobin Carboxyhemoglobin Sodium 146 H Potassium 3.5 L Chloride 107.5 H Carbon Dioxide BUN 40 H Creatinine 2.5 H Glucose 104 H POC Glucose 130 H Hemoglobin A1c Lactic Acid Calcium Phosphorus Magnesium Transferrin AST 53 H ALT Alkaline Phosphatase 149 H Total Creatine Kinase CK-MB (CK-2) Serum Total Protein Total Protein 5.2 L Albumin 1.5 L Hkgva-7-Hblovultr Cahvh-8-Luholownz Gamma Globulins PEP Interpretation HDL Cholesterol TSH Arterial Blood Glucose Arterial Blood Ionized Calcium Urine WBC (Auto) Urine Creatinine Urine Total Protein Crossmatch 05/03/21 05/04/21 05/04/21 17:26 01:24 04:48 WBC 14.3 H RBC 3.14 L Hgb 8.5 L Hct 26.3 L MCH 27 L RDW 15.8 H Plt Count Seg Neuts % (Manual) Lymphocytes % (Manual) Nucleated RBC % Seg Neutrophils # Man Lymphocytes # (Manual) PT ABG pH POC ABG pCO2 POC ABG pO2 ABG pO2 ABG O2 Saturation ABG Base Excess ABG Hemoglobin ABG Oxyhemoglobin ABG Potassium ABG Chloride ABG Glucose Oxyhemoglobin Carboxyhemoglobin Sodium Potassium Chloride Carbon Dioxide BUN Creatinine Glucose POC Glucose 123 H 146 H Hemoglobin A1c Lactic Acid Calcium Phosphorus Magnesium Transferrin AST ALT Alkaline Phosphatase Total Creatine Kinase CK-MB (CK-2) Serum Total Protein Total Protein Albumin Kelvf-2-Xptarwueq Xlibm-3-Lnkktfgvu Gamma Globulins PEP Interpretation HDL Cholesterol TSH Arterial Blood Glucose Arterial Blood Ionized Calcium Urine WBC (Auto) Urine Creatinine Urine Total Protein Crossmatch 05/04/21 05/04/21 05/04/21 04:48 05:15 11:24 WBC RBC Hgb Hct MCH RDW Plt Count Seg Neuts % (Manual) Lymphocytes % (Manual) Nucleated RBC % Seg Neutrophils # Man Lymphocytes # (Manual) PT ABG pH POC ABG pCO2 POC ABG pO2 ABG pO2 ABG O2 Saturation ABG Base Excess ABG Hemoglobin ABG Oxyhemoglobin ABG Potassium ABG Chloride ABG Glucose Oxyhemoglobin Carboxyhemoglobin Sodium Potassium 3.5 L Chloride Carbon Dioxide BUN 58 H Creatinine 3.4 H Glucose 168 H POC Glucose 162 H 145 H Hemoglobin A1c Lactic Acid Calcium Phosphorus 5.30 H Magnesium Transferrin AST ALT Alkaline Phosphatase Total Creatine Kinase CK-MB (CK-2) Serum Total Protein Total Protein Albumin Xqyfe-3-Wlbgvfblc Wyfrs-3-Bhfrsrwcx Gamma Globulins PEP Interpretation HDL Cholesterol 24 L TSH Arterial Blood Glucose Arterial Blood Ionized Calcium Urine WBC (Auto) Urine Creatinine Urine Total Protein Crossmatch 05/04/21 05/04/21 05/05/21 16:01 23:32 04:00 WBC RBC Hgb Hct MCH RDW Plt Count Seg Neuts % (Manual) Lymphocytes % (Manual) Nucleated RBC % Seg Neutrophils # Man Lymphocytes # (Manual) PT ABG pH POC ABG pCO2 POC ABG pO2 ABG pO2 ABG O2 Saturation ABG Base Excess ABG Hemoglobin ABG Oxyhemoglobin ABG Potassium ABG Chloride ABG Glucose Oxyhemoglobin Carboxyhemoglobin Sodium Potassium 3.4 L Chloride Carbon Dioxide BUN 43 H Creatinine 2.7 H Glucose 124 H POC Glucose 148 H 134 H Hemoglobin A1c Lactic Acid Calcium 8.2 L Phosphorus Magnesium Transferrin AST ALT Alkaline Phosphatase Total Creatine Kinase CK-MB (CK-2) Serum Total Protein Total Protein Albumin Dohpx-3-Wszytclay Rytua-7-Qvmzzlewz Gamma Globulins PEP Interpretation HDL Cholesterol TSH Arterial Blood Glucose Arterial Blood Ionized Calcium Urine WBC (Auto) Urine Creatinine Urine Total Protein Crossmatch 05/05/21 05/06/21 05/06/21 05:14 00:01 04:00 WBC RBC Hgb Hct MCH RDW Plt Count Seg Neuts % (Manual) Lymphocytes % (Manual) Nucleated RBC % Seg Neutrophils # Man Lymphocytes # (Manual) PT ABG pH POC ABG pCO2 POC ABG pO2 ABG pO2 ABG O2 Saturation ABG Base Excess ABG Hemoglobin ABG Oxyhemoglobin ABG Potassium ABG Chloride ABG Glucose Oxyhemoglobin Carboxyhemoglobin Sodium Potassium 3.2 L Chloride Carbon Dioxide BUN 56 H Creatinine 3.0 H Glucose 110 H POC Glucose 120 H 120 H Hemoglobin A1c Lactic Acid Calcium 7.8 L Phosphorus 4.60 H Magnesium Transferrin AST ALT Alkaline Phosphatase Total Creatine Kinase CK-MB (CK-2) Serum Total Protein Total Protein Albumin Ihqcm-2-Vvmvxpwxc Tkiln-4-Gyydfnbqj Gamma Globulins PEP Interpretation HDL Cholesterol TSH Arterial Blood Glucose Arterial Blood Ionized Calcium Urine WBC (Auto) Urine Creatinine Urine Total Protein Crossmatch 05/06/21 05/06/21 05/06/21 04:27 05:15 17:37 WBC RBC 3.03 L Hgb 8.3 L Hct 25.4 L MCH 27 L RDW Plt Count Seg Neuts % (Manual) Lymphocytes % (Manual) Nucleated RBC % Seg Neutrophils # Man Lymphocytes # (Manual) PT ABG pH POC ABG pCO2 POC ABG pO2 ABG pO2 ABG O2 Saturation ABG Base Excess ABG Hemoglobin ABG Oxyhemoglobin ABG Potassium ABG Chloride ABG Glucose Oxyhemoglobin Carboxyhemoglobin Sodium Potassium Chloride Carbon Dioxide BUN Creatinine Glucose POC Glucose 137 H 132 H Hemoglobin A1c Lactic Acid Calcium Phosphorus Magnesium Transferrin AST ALT Alkaline Phosphatase Total Creatine Kinase CK-MB (CK-2) Serum Total Protein Total Protein Albumin Bvikx-7-Ivlhlyiom Mpqgk-4-Mbcysqjdx Gamma Globulins PEP Interpretation HDL Cholesterol TSH Arterial Blood Glucose Arterial Blood Ionized Calcium Urine WBC (Auto) Urine Creatinine Urine Total Protein Crossmatch 05/07/21 05/07/21 05/07/21 00:30 04:23 04:23 WBC RBC Hgb Hct MCH RDW Plt Count Seg Neuts % (Manual) Lymphocytes % (Manual) Nucleated RBC % Seg Neutrophils # Man Lymphocytes # (Manual) PT ABG pH POC ABG pCO2 POC ABG pO2 ABG pO2 ABG O2 Saturation ABG Base Excess ABG Hemoglobin ABG Oxyhemoglobin ABG Potassium ABG Chloride ABG Glucose Oxyhemoglobin Carboxyhemoglobin Sodium Potassium 3.4 L Chloride 107.1 H Carbon Dioxide BUN 28 H Creatinine 1.9 H Glucose 165 H POC Glucose 121 H Hemoglobin A1c Lactic Acid Calcium 8.2 L Phosphorus Magnesium 1.60 L Transferrin AST ALT Alkaline Phosphatase Total Creatine Kinase CK-MB (CK-2) Serum Total Protein Total Protein Albumin Jmscl-6-Inawgkkkl Gophi-5-Ocwkmboha Gamma Globulins PEP Interpretation HDL Cholesterol TSH Arterial Blood Glucose Arterial Blood Ionized Calcium Urine WBC (Auto) Urine Creatinine Urine Total Protein Crossmatch 05/07/21 05/07/21 05/07/21 05:30 11:37 17:28 WBC RBC Hgb Hct MCH RDW Plt Count Seg Neuts % (Manual) Lymphocytes % (Manual) Nucleated RBC % Seg Neutrophils # Man Lymphocytes # (Manual) PT ABG pH POC ABG pCO2 POC ABG pO2 ABG pO2 ABG O2 Saturation ABG Base Excess ABG Hemoglobin ABG Oxyhemoglobin ABG Potassium ABG Chloride ABG Glucose Oxyhemoglobin Carboxyhemoglobin Sodium Potassium Chloride Carbon Dioxide BUN Creatinine Glucose POC Glucose 205 H 148 H 170 H Hemoglobin A1c Lactic Acid Calcium Phosphorus Magnesium Transferrin AST ALT Alkaline Phosphatase Total Creatine Kinase CK-MB (CK-2) Serum Total Protein Total Protein Albumin Iemmg-8-Yxerrshhn Pqcjf-4-Pmuemdalx Gamma Globulins PEP Interpretation HDL Cholesterol TSH Arterial Blood Glucose Arterial Blood Ionized Calcium Urine WBC (Auto) Urine Creatinine Urine Total Protein Crossmatch 05/07/21 05/08/21 05/08/21 23:57 05:12 05:12 WBC 11.2 H RBC 3.01 L Hgb 8.2 L Hct 25.5 L MCH 27 L RDW 15.4 H Plt Count Seg Neuts % (Manual) Lymphocytes % (Manual) Nucleated RBC % Seg Neutrophils # Man Lymphocytes # (Manual) PT ABG pH POC ABG pCO2 POC ABG pO2 ABG pO2 ABG O2 Saturation ABG Base Excess ABG Hemoglobin ABG Oxyhemoglobin ABG Potassium ABG Chloride ABG Glucose Oxyhemoglobin Carboxyhemoglobin Sodium Potassium 3.4 L Chloride Carbon Dioxide BUN 37 H Creatinine 2.1 H Glucose 160 H POC Glucose 172 H Hemoglobin A1c Lactic Acid Calcium 8.3 L Phosphorus Magnesium Transferrin AST ALT Alkaline Phosphatase Total Creatine Kinase CK-MB (CK-2) Serum Total Protein Total Protein Albumin Ezgda-3-Ambbkgxdk Xwdkz-2-Etqgfkwxx Gamma Globulins PEP Interpretation HDL Cholesterol TSH Arterial Blood Glucose Arterial Blood Ionized Calcium Urine WBC (Auto) Urine Creatinine Urine Total Protein Crossmatch 05/08/21 05/08/21 05/08/21 05:20 09:34 11:35 WBC RBC Hgb Hct MCH RDW Plt Count Seg Neuts % (Manual) Lymphocytes % (Manual) Nucleated RBC % Seg Neutrophils # Man Lymphocytes # (Manual) PT ABG pH POC ABG pCO2 POC ABG pO2 ABG pO2 ABG O2 Saturation ABG Base Excess ABG Hemoglobin ABG Oxyhemoglobin ABG Potassium ABG Chloride ABG Glucose Oxyhemoglobin Carboxyhemoglobin Sodium Potassium Chloride Carbon Dioxide BUN Creatinine Glucose POC Glucose 148 H 208 H Hemoglobin A1c Lactic Acid Calcium Phosphorus Magnesium Transferrin AST ALT Alkaline Phosphatase Total Creatine Kinase CK-MB (CK-2) Serum Total Protein Total Protein Albumin Augtq-1-Jksmvxnnm Vkiwc-7-Ugtsrybqs Gamma Globulins PEP Interpretation HDL Cholesterol TSH Arterial Blood Glucose Arterial Blood Ionized Calcium Urine WBC (Auto) Urine Creatinine 56.0 H Urine Total Protein Crossmatch 05/08/21 05/08/21 05/09/21 16:55 23:57 05:30 WBC 12.8 H RBC 2.98 L Hgb 8.1 L Hct 25.4 L MCH 27 L RDW 15.4 H Plt Count Seg Neuts % (Manual) Lymphocytes % (Manual) Nucleated RBC % Seg Neutrophils # Man Lymphocytes # (Manual) PT ABG pH POC ABG pCO2 POC ABG pO2 ABG pO2 ABG O2 Saturation ABG Base Excess ABG Hemoglobin ABG Oxyhemoglobin ABG Potassium ABG Chloride ABG Glucose Oxyhemoglobin Carboxyhemoglobin Sodium Potassium Chloride Carbon Dioxide BUN Creatinine Glucose POC Glucose 179 H 183 H Hemoglobin A1c Lactic Acid Calcium Phosphorus Magnesium Transferrin AST ALT Alkaline Phosphatase Total Creatine Kinase CK-MB (CK-2) Serum Total Protein Total Protein Albumin Iqhnp-1-Jabzwnpcs Urelh-1-Ndcvdczkb Gamma Globulins PEP Interpretation HDL Cholesterol TSH Arterial Blood Glucose Arterial Blood Ionized Calcium Urine WBC (Auto) Urine Creatinine Urine Total Protein Crossmatch 05/09/21 05/09/21 05/09/21 05:30 05:31 11:24 WBC RBC Hgb Hct MCH RDW Plt Count Seg Neuts % (Manual) Lymphocytes % (Manual) Nucleated RBC % Seg Neutrophils # Man Lymphocytes # (Manual) PT ABG pH POC ABG pCO2 POC ABG pO2 ABG pO2 ABG O2 Saturation ABG Base Excess ABG Hemoglobin ABG Oxyhemoglobin ABG Potassium ABG Chloride ABG Glucose Oxyhemoglobin Carboxyhemoglobin Sodium 150 H Potassium 3.2 L Chloride 110.2 H Carbon Dioxide BUN 37 H Creatinine 1.8 H Glucose 191 H POC Glucose 120 H 197 H Hemoglobin A1c Lactic Acid Calcium Phosphorus Magnesium Transferrin AST ALT Alkaline Phosphatase Total Creatine Kinase CK-MB (CK-2) Serum Total Protein Total Protein Albumin Ilxmx-9-Kaoggpzkk Izvhe-1-Pzjldydhn Gamma Globulins PEP Interpretation HDL Cholesterol TSH Arterial Blood Glucose Arterial Blood Ionized Calcium Urine WBC (Auto) Urine Creatinine Urine Total Protein Crossmatch 05/09/21 05/09/21 05/10/21 15:49 23:42 05:00 WBC RBC 2.99 L Hgb 8.2 L Hct 25.6 L MCH RDW 15.4 H Plt Count 456 H Seg Neuts % (Manual) Lymphocytes % (Manual) Nucleated RBC % Seg Neutrophils # Man Lymphocytes # (Manual) PT ABG pH POC ABG pCO2 POC ABG pO2 ABG pO2 ABG O2 Saturation ABG Base Excess ABG Hemoglobin ABG Oxyhemoglobin ABG Potassium ABG Chloride ABG Glucose Oxyhemoglobin Carboxyhemoglobin Sodium Potassium Chloride Carbon Dioxide BUN Creatinine Glucose POC Glucose 318 H 152 H Hemoglobin A1c Lactic Acid Calcium Phosphorus Magnesium Transferrin AST ALT Alkaline Phosphatase Total Creatine Kinase CK-MB (CK-2) Serum Total Protein Total Protein Albumin Gamli-5-Jjdbbuoin Qcion-3-Tfdufmycn Gamma Globulins PEP Interpretation HDL Cholesterol TSH Arterial Blood Glucose Arterial Blood Ionized Calcium Urine WBC (Auto) Urine Creatinine Urine Total Protein Crossmatch 05/10/21 05/10/21 05/10/21 05:00 05:30 12:08 WBC RBC Hgb Hct MCH RDW Plt Count Seg Neuts % (Manual) Lymphocytes % (Manual) Nucleated RBC % Seg Neutrophils # Man Lymphocytes # (Manual) PT ABG pH POC ABG pCO2 POC ABG pO2 ABG pO2 ABG O2 Saturation ABG Base Excess ABG Hemoglobin ABG Oxyhemoglobin ABG Potassium ABG Chloride ABG Glucose Oxyhemoglobin Carboxyhemoglobin Sodium 148 H Potassium 3.4 L Chloride 110.5 H Carbon Dioxide BUN 36 H Creatinine 1.6 H Glucose 185 H POC Glucose 168 H 193 H Hemoglobin A1c Lactic Acid Calcium Phosphorus Magnesium Transferrin AST ALT Alkaline Phosphatase Total Creatine Kinase CK-MB (CK-2) Serum Total Protein Total Protein Albumin Iiept-9-Xihkwyoza Dxvzb-4-Rakumpmwi Gamma Globulins PEP Interpretation HDL Cholesterol TSH Arterial Blood Glucose Arterial Blood Ionized Calcium Urine WBC (Auto) Urine Creatinine Urine Total Protein Crossmatch 05/10/21 05/10/21 05/11/21 18:02 23:25 05:40 WBC RBC 3.11 L Hgb 8.3 L Hct 26.6 L MCH 27 L RDW 15.7 H Plt Count 489 H Seg Neuts % (Manual) Lymphocytes % (Manual) Nucleated RBC % Seg Neutrophils # Man Lymphocytes # (Manual) PT ABG pH POC ABG pCO2 POC ABG pO2 ABG pO2 ABG O2 Saturation ABG Base Excess ABG Hemoglobin ABG Oxyhemoglobin ABG Potassium ABG Chloride ABG Glucose Oxyhemoglobin Carboxyhemoglobin Sodium Potassium Chloride Carbon Dioxide BUN Creatinine Glucose POC Glucose 205 H 171 H Hemoglobin A1c Lactic Acid Calcium Phosphorus Magnesium Transferrin AST ALT Alkaline Phosphatase Total Creatine Kinase CK-MB (CK-2) Serum Total Protein Total Protein Albumin Mpmeq-9-Uynlvhnaz Keltd-3-Ywysyisxb Gamma Globulins PEP Interpretation HDL Cholesterol TSH Arterial Blood Glucose Arterial Blood Ionized Calcium Urine WBC (Auto) Urine Creatinine Urine Total Protein Crossmatch 05/11/21 05/11/21 05/11/21 05:40 11:45 18:23 WBC RBC Hgb Hct MCH RDW Plt Count Seg Neuts % (Manual) Lymphocytes % (Manual) Nucleated RBC % Seg Neutrophils # Man Lymphocytes # (Manual) PT ABG pH POC ABG pCO2 POC ABG pO2 ABG pO2 ABG O2 Saturation ABG Base Excess ABG Hemoglobin ABG Oxyhemoglobin ABG Potassium ABG Chloride ABG Glucose Oxyhemoglobin Carboxyhemoglobin Sodium 149 H Potassium Chloride 112.0 H Carbon Dioxide BUN 36 H Creatinine 1.4 H Glucose 164 H POC Glucose 176 H 203 H Hemoglobin A1c Lactic Acid Calcium Phosphorus Magnesium Transferrin AST ALT Alkaline Phosphatase Total Creatine Kinase CK-MB (CK-2) Serum Total Protein Total Protein Albumin Vlcls-8-Vxcxlhjne Ufzau-3-Blbysxoqo Gamma Globulins PEP Interpretation HDL Cholesterol TSH Arterial Blood Glucose Arterial Blood Ionized Calcium Urine WBC (Auto) Urine Creatinine Urine Total Protein Crossmatch 05/12/21 05/12/21 05/12/21 00:30 04:10 04:10 WBC RBC 3.13 L Hgb 8.4 L Hct 26.6 L MCH 27 L RDW 15.7 H Plt Count 496 H Seg Neuts % (Manual) Lymphocytes % (Manual) Nucleated RBC % Seg Neutrophils # Man Lymphocytes # (Manual) PT ABG pH POC ABG pCO2 POC ABG pO2 ABG pO2 ABG O2 Saturation ABG Base Excess ABG Hemoglobin ABG Oxyhemoglobin ABG Potassium ABG Chloride ABG Glucose Oxyhemoglobin Carboxyhemoglobin Sodium Potassium Chloride Carbon Dioxide BUN 36 H Creatinine 1.3 H Glucose 182 H POC Glucose 161 H Hemoglobin A1c Lactic Acid Calcium 8.3 L Phosphorus Magnesium Transferrin AST ALT Alkaline Phosphatase Total Creatine Kinase CK-MB (CK-2) Serum Total Protein Total Protein Albumin Yqpyr-7-Bjilypdho Ebmeg-9-Ddwhddjrn Gamma Globulins PEP Interpretation HDL Cholesterol TSH Arterial Blood Glucose Arterial Blood Ionized Calcium Urine WBC (Auto) Urine Creatinine Urine Total Protein Crossmatch 05/12/21 05/12/21 05/12/21 05:24 11:50 17:45 WBC RBC Hgb Hct MCH RDW Plt Count Seg Neuts % (Manual) Lymphocytes % (Manual) Nucleated RBC % Seg Neutrophils # Man Lymphocytes # (Manual) PT ABG pH POC ABG pCO2 POC ABG pO2 ABG pO2 ABG O2 Saturation ABG Base Excess ABG Hemoglobin ABG Oxyhemoglobin ABG Potassium ABG Chloride ABG Glucose Oxyhemoglobin Carboxyhemoglobin Sodium Potassium Chloride Carbon Dioxide BUN Creatinine Glucose POC Glucose 177 H 180 H 187 H Hemoglobin A1c Lactic Acid Calcium Phosphorus Magnesium Transferrin AST ALT Alkaline Phosphatase Total Creatine Kinase CK-MB (CK-2) Serum Total Protein Total Protein Albumin Fhztf-9-Uyfqwjkvy Nntzx-8-Dtlooence Gamma Globulins PEP Interpretation HDL Cholesterol TSH Arterial Blood Glucose Arterial Blood Ionized Calcium Urine WBC (Auto) Urine Creatinine Urine Total Protein Crossmatch 05/12/21 05/13/21 05/13/21 23:20 04:24 04:24 WBC RBC 3.10 L Hgb 8.5 L Hct 26.3 L MCH RDW 15.6 H Plt Count 503 H Seg Neuts % (Manual) Lymphocytes % (Manual) Nucleated RBC % Seg Neutrophils # Man Lymphocytes # (Manual) PT ABG pH POC ABG pCO2 POC ABG pO2 ABG pO2 ABG O2 Saturation ABG Base Excess ABG Hemoglobin ABG Oxyhemoglobin ABG Potassium ABG Chloride ABG Glucose Oxyhemoglobin Carboxyhemoglobin Sodium Potassium Chloride Carbon Dioxide BUN 30 H Creatinine Glucose 138 H POC Glucose 142 H Hemoglobin A1c Lactic Acid Calcium 8.3 L Phosphorus Magnesium 1.60 L Transferrin AST ALT Alkaline Phosphatase Total Creatine Kinase CK-MB (CK-2) Serum Total Protein Total Protein Albumin Ltuvy-4-Nvjggekic Zzpax-1-Txqbpxlzb Gamma Globulins PEP Interpretation HDL Cholesterol TSH Arterial Blood Glucose Arterial Blood Ionized Calcium Urine WBC (Auto) Urine Creatinine Urine Total Protein Crossmatch 05/13/21 05/13/21 05/13/21 05:29 11:44 16:52 WBC RBC Hgb Hct MCH RDW Plt Count Seg Neuts % (Manual) Lymphocytes % (Manual) Nucleated RBC % Seg Neutrophils # Man Lymphocytes # (Manual) PT ABG pH POC ABG pCO2 POC ABG pO2 ABG pO2 ABG O2 Saturation ABG Base Excess ABG Hemoglobin ABG Oxyhemoglobin ABG Potassium ABG Chloride ABG Glucose Oxyhemoglobin Carboxyhemoglobin Sodium Potassium Chloride Carbon Dioxide BUN Creatinine Glucose POC Glucose 128 H 148 H 160 H Hemoglobin A1c Lactic Acid Calcium Phosphorus Magnesium Transferrin AST ALT Alkaline Phosphatase Total Creatine Kinase CK-MB (CK-2) Serum Total Protein Total Protein Albumin Tekgz-5-Hgnvuqeti Hnvqz-9-Ieyzmasjs Gamma Globulins PEP Interpretation HDL Cholesterol TSH Arterial Blood Glucose Arterial Blood Ionized Calcium Urine WBC (Auto) Urine Creatinine Urine Total Protein Crossmatch 05/13/21 05/14/21 05/14/21 23:25 04:43 04:43 WBC RBC 3.02 L Hgb 8.3 L Hct 25.6 L MCH RDW 15.5 H Plt Count 482 H Seg Neuts % (Manual) Lymphocytes % (Manual) Nucleated RBC % Seg Neutrophils # Man Lymphocytes # (Manual) PT ABG pH POC ABG pCO2 POC ABG pO2 ABG pO2 ABG O2 Saturation ABG Base Excess ABG Hemoglobin ABG Oxyhemoglobin ABG Potassium ABG Chloride ABG Glucose Oxyhemoglobin Carboxyhemoglobin Sodium Potassium Chloride Carbon Dioxide BUN 29 H Creatinine Glucose 192 H POC Glucose 167 H Hemoglobin A1c Lactic Acid Calcium 8.1 L Phosphorus Magnesium Transferrin AST ALT Alkaline Phosphatase Total Creatine Kinase CK-MB (CK-2) Serum Total Protein Total Protein Albumin Uabxz-7-Xmqrxwxno Nagwq-8-Kegxayksu Gamma Globulins PEP Interpretation HDL Cholesterol TSH Arterial Blood Glucose Arterial Blood Ionized Calcium Urine WBC (Auto) Urine Creatinine Urine Total Protein Crossmatch 05/14/21 05/14/21 05/14/21 05:37 10:57 10:59 WBC RBC Hgb Hct MCH RDW Plt Count Seg Neuts % (Manual) Lymphocytes % (Manual) Nucleated RBC % Seg Neutrophils # Man Lymphocytes # (Manual) PT ABG pH POC ABG pCO2 POC ABG pO2 ABG pO2 ABG O2 Saturation ABG Base Excess ABG Hemoglobin ABG Oxyhemoglobin ABG Potassium ABG Chloride ABG Glucose Oxyhemoglobin Carboxyhemoglobin Sodium Potassium Chloride Carbon Dioxide BUN Creatinine Glucose POC Glucose 190 H 215 H Hemoglobin A1c Lactic Acid Calcium Phosphorus Magnesium Transferrin AST ALT Alkaline Phosphatase Total Creatine Kinase CK-MB (CK-2) Serum Total Protein Total Protein Albumin Zjrxi-8-Wngtsfgsj Ofdzp-7-Zgtbubfis Gamma Globulins PEP Interpretation HDL Cholesterol TSH Arterial Blood Glucose Arterial Blood Ionized Calcium Urine WBC (Auto) 8.0 H Urine Creatinine Urine Total Protein Crossmatch 05/14/21 05/14/21 05/15/21 18:06 23:41 04:09 WBC 11.5 H RBC 2.80 L Hgb 7.7 L Hct 23.6 L MCH RDW 15.3 H Plt Count Seg Neuts % (Manual) Lymphocytes % (Manual) Nucleated RBC % Seg Neutrophils # Man Lymphocytes # (Manual) PT ABG pH POC ABG pCO2 POC ABG pO2 ABG pO2 ABG O2 Saturation ABG Base Excess ABG Hemoglobin ABG Oxyhemoglobin ABG Potassium ABG Chloride ABG Glucose Oxyhemoglobin Carboxyhemoglobin Sodium Potassium Chloride Carbon Dioxide BUN Creatinine Glucose POC Glucose 166 H 189 H Hemoglobin A1c Lactic Acid Calcium Phosphorus Magnesium Transferrin AST ALT Alkaline Phosphatase Total Creatine Kinase CK-MB (CK-2) Serum Total Protein Total Protein Albumin Vcyww-2-Pfqpvuqfc Ryalw-2-Hgrbomhnw Gamma Globulins PEP Interpretation HDL Cholesterol TSH Arterial Blood Glucose Arterial Blood Ionized Calcium Urine WBC (Auto) Urine Creatinine Urine Total Protein Crossmatch 05/15/21 05/15/21 05/15/21 04:09 05:51 11:33 WBC RBC Hgb Hct MCH RDW Plt Count Seg Neuts % (Manual) Lymphocytes % (Manual) Nucleated RBC % Seg Neutrophils # Man Lymphocytes # (Manual) PT ABG pH POC ABG pCO2 POC ABG pO2 ABG pO2 ABG O2 Saturation ABG Base Excess ABG Hemoglobin ABG Oxyhemoglobin ABG Potassium ABG Chloride ABG Glucose Oxyhemoglobin Carboxyhemoglobin Sodium Potassium Chloride Carbon Dioxide BUN 22 H Creatinine Glucose 148 H POC Glucose 161 H 163 H Hemoglobin A1c Lactic Acid Calcium 8.2 L Phosphorus 2.00 L D Magnesium Transferrin AST ALT Alkaline Phosphatase Total Creatine Kinase CK-MB (CK-2) Serum Total Protein Total Protein Albumin Ojiqv-0-Cohzscqpv Wxrgw-6-Xmhvoslqw Gamma Globulins PEP Interpretation HDL Cholesterol TSH Arterial Blood Glucose Arterial Blood Ionized Calcium Urine WBC (Auto) Urine Creatinine Urine Total Protein Crossmatch 05/15/21 05/16/21 05/16/21 23:58 04:24 04:24 WBC 13.0 H RBC 2.79 L Hgb 7.6 L Hct 23.7 L MCH 27 L RDW 15.9 H Plt Count Seg Neuts % (Manual) Lymphocytes % (Manual) Nucleated RBC % Seg Neutrophils # Man Lymphocytes # (Manual) PT ABG pH POC ABG pCO2 POC ABG pO2 ABG pO2 ABG O2 Saturation ABG Base Excess ABG Hemoglobin ABG Oxyhemoglobin ABG Potassium ABG Chloride ABG Glucose Oxyhemoglobin Carboxyhemoglobin Sodium Potassium 3.5 L Chloride 107.9 H Carbon Dioxide BUN 20 H Creatinine Glucose 157 H POC Glucose 141 H Hemoglobin A1c Lactic Acid Calcium 8.3 L Phosphorus Magnesium Transferrin AST ALT Alkaline Phosphatase Total Creatine Kinase CK-MB (CK-2) Serum Total Protein Total Protein Albumin Ynfwq-3-Nxacuojmq Ctbyx-8-Kvmhjzrrp Gamma Globulins PEP Interpretation HDL Cholesterol TSH Arterial Blood Glucose Arterial Blood Ionized Calcium Urine WBC (Auto) Urine Creatinine Urine Total Protein Crossmatch 05/16/21 05:24 WBC RBC Hgb Hct MCH RDW Plt Count Seg Neuts % (Manual) Lymphocytes % (Manual) Nucleated RBC % Seg Neutrophils # Man Lymphocytes # (Manual) PT ABG pH POC ABG pCO2 POC ABG pO2 ABG pO2 ABG O2 Saturation ABG Base Excess ABG Hemoglobin ABG Oxyhemoglobin ABG Potassium ABG Chloride ABG Glucose Oxyhemoglobin Carboxyhemoglobin Sodium Potassium Chloride Carbon Dioxide BUN Creatinine Glucose POC Glucose 157 H Hemoglobin A1c Lactic Acid Calcium Phosphorus Magnesium Transferrin AST ALT Alkaline Phosphatase Total Creatine Kinase CK-MB (CK-2) Serum Total Protein Total Protein Albumin Tjtwl-0-Udpsamsym Rbcjc-2-Rinszdmht Gamma Globulins PEP Interpretation HDL Cholesterol TSH Arterial Blood Glucose Arterial Blood Ionized Calcium Urine WBC (Auto) Urine Creatinine Urine Total Protein Crossmatch
--- NOTE | 2021-05-16 16:21 | Progress Note ---
<TANYAHENRIETTA ShannonJericho - Last Filed: 05/16/21 16:28> Assessment and Plan Assessment and plan: This is a 80-year-old female skilled nursing resident with GERD, hypothyroidism, hyperlipidemia, schizophrenia and dementia admitted with hypothermia, hyponatremia, hypokalemia, lactic acidosis, acute kidney injury, rhabdomyolysis and hyperosmolar nonketotic state. Acute CVA, acute metabolic encephalopathy, normal pressure hydrocephalus -CT head shows lateral ventricles and third ventricle dilation, raises possibility of normal pressure hydrocephalus -Neurology and neurosurgery consulted, appreciate recommendations -neurosurgery has no acute interventions -04/29 s/p spinal tap removal 24 mL, mental is unchanged -csf fluid showed {14 wbc,324 rbc,normal protein and glucose ,c/s is unremarkable so far} -MRI brain is remarkable for multiple ischemic event cortical as well as subcortical in both hemisphere and in all distribuation with slight petechial hemorrhage is noted findings is suggestive of possible embolic event with water shed infarct can not be totally excluded. -MRA/MRV completed-see chart for details - source of emboli not found -LINCOLN not successful -ASA 81 and lipitor -LDL noted -PT/ST/OT consulted -Aspiration/seizure precautions -Maintain sleep-wake cycle -Avoid delirium -Correct electrolyte derangements -Hold off on restarting home antipsychotic medications when obtained -Risperidone 3 mg, Donepazil 5 mg Acute hypoxic respiratory failure -s/p Bipap and ventimask -s/p bronchoscopy on 04/26 and trached 05/13 -Intubated 04/26 with 7.5 oett at 22 lips -Am vent settings: AC rate 14, tidal volume 450, PEEP 6, FiO2 30% -see RT notes for titration -PSV as tolerated -s/p racimec epi x2 04/22 and 04/23 preintubation -SPO2 monitoring -VAP bundle Acute kidney injury likely secondary to vasomotor nephropathy, urinary retention, Hypokalemia, hypo magnesium Pay[place], hyperphosphatemia -FeNA 0.50 indicating prerenal sate -Nephrology consulted, appreciate recommendations -HD initiated 04/27 and DC 05/13 -Luther catheter placed for strict intake and output; changed 05/02 -d/c to purwick -Avoid nephrotoxic medications -Trend BMP, CK -Renally dose medications -renal US WNL per read Sepsis likely 2/2 UTI and PNA -ID consulted, appreciate recommendations -COVID-19 PCR negative -04/26/2021 sputum culture: Roselyn nonalbicans -04/29/2021 UA showed significant pyuria. -UC Roselyn-> fluconazole -Lumbar puncture with CSF showing 14 WBC, 324 RBC, glucose 161, protein 51. 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 The aggregate critical care time was [60] minutes. This time is in addition to time spent performing reported procedures but includes the following: [x] Data Review and interpretation [x] Patient assessment and monitoring of vital signs [x] Documentation [x] Medication orders and management Disposition Plan: ICU; pending LTACH Total Time Spent with Patient (Minutes): 60 History Interval history: This is a 80-year-old female who was skilled nursing resident at [facility] with GERD, hypothyroidism, hyperlipidemia, schizophrenia and dementia presented to the emergency department on 04/20 after being found unresponsive by the staff via EMS. Per EMS glucose levels read as high. Work-up in the emergency department revealed severe hypernatremia, leukocytosis, metabolic acidosis, hyperchloremia, elevated BUN/creatinine, lactic acidosis and hyperglycemia. Patient was also hypothermic on admit. CT head showed findings suggestive of the possibility of normal pressure hydrocephalus. Patient was admitted to the hospitalist service with acute metabolic encephalopathy, diabetic hyperosmolar nonketotic state, acute kidney injury, hypernatremia, rhabdomyolysis and leukocytosis with consults to nephrology and [facility]. 04/21: Given 1 L LR bolus per nephrology and D5W increased to 125 mL's per hour, COVID-19 PCR pending, CXR and ABG ordered as patient was weaned from BiPAP to 3 L nasal cannula however was uptitrated back to nonrebreather. Will obtain blood cultures x2 given her leukocytosis and hypothermia. Replace potassium. Neurosurgery and neurology consulted and Luther catheter placed. 04/22: Improvement to sodium noted, slight hypokalemia which will be repleted, slight improvement to renal function, LFTs and rhabdomyolysis. Seen by neurosurgery today. Patient still making urine. transition to ssi and start TF as AG 15 04/23/2021: Given racemic epinephrine again due to stridor, continue IV fluids per nephrology, continue to trend sodium and BMP. 04/24/2021: 70/30 increased d/t hyperglycemia but recent BMP showed BG>300, gave additional 5 units IV insulin and ordered 5 units TID scheduled. However after IV insulin her PCOT was 400. Start on insulin gtt for hyperglycemia. Per RN she was not of IV D5 overnight d/t having one IV which was needed for emergency. Day RN did start dextrose. Remains with hyperglycemia. 04/25: Patient obtunded, withdrawal to pain only, on 50%Venti mask SPO2 abobe 92%. Plan to transition to SubQ insulin. Patient with mild hypernatremia this am, FWF added, will stop IVF for now. 04/26: Patient s/p intubation this am. Mentation is unchanged, plan for MRI brain today per NeuroSurg. Still hyperglycemic, hypernatremia improved, D5W D/katlyn, and basal insulin adjusted. 04/27: Bronch overnight. CXR with mild improvement. D/w Nephro plan for HD today, RIJ VasCath inserted. MRI on hold per [facility] patient is too unstable at this time, plan for possible spinal drained tomorrow to see if mentation will improve. 04/28: Tolerated HD overnight, only UF. Mentation remains the same. D/w [facility] plan for possible large volume spinal tap under fluoroscopy today. Plan for possible HD again today. Continue FWF for elevated Na. 04/29: MARY overnight. Plan for spinal tap this am. febrile overnight with leukocytosis, remains on pressors and more tachycardic now. Will panculture patient, and empiric IV was initiated. Remains hyperglycemic, basal insulin adjusted. 04/30: Patient's mentation remains unchanged post spinal tap. Plan for possible MR I brain next week. Afebrile overnight and leukocytosis improved, However, vent settings are going up and this am ABG with hypoxia, this am CXR with worsening opacities. Patient with 3+ pitting edema. Continue HD per Nephro. Continue current empiric IV abx, f/u on culture data, might need to get ID on board if worsen. 05/01: Mentation is unchanged, still on pressors. Febrile this am, continue IV abx , ID consulted. 3L out yesterday, plan for HD again tomorrow. Plt count improved, might need to restart AC, will D/w CCM. 05/02: No change in mentation and she is now noted to be decorticating to pain -> MRI brain ordered. Scheduled for HD today. ID consult completed. 05/03: Neurology consulted given MRI findings of multiple acute CVAs, LINCOLN ordered, EEG pending, started on aspirin and Lipitor. updated POA 05/04: Received hemodialysis today, will schedule for LINCOLN today however HD was ongoing at the time neurology will obtain MRA brain and neck then consider LINCOLN, increasing midodrine to aid in weaning Levophed. 05/05: MRA/MRV completed today, urine culture grew Roselyn and was started on flu conazole, LINCOLN tentatively scheduled for tomorrow. Resume tube feeding and n.p.o. at midnight. 05/06: Patient was scheduled for LINCOLN which was attempted however patient became hypotensive and the procedure was aborted. She received HD today. No acute events reported overnight. Tube feedings resumed. 05/07: No acute changes overnight. 05/08: May need permacath, goals of care to be discussed and will likely happen after neuro recommendations tomorrow since LINCOLN was unable to be completed. No acute events overnight. Replete mag, decreased midodrine. 05/09: MARY overnight. Patient remains unresponsive. No HD today per Nephro, low K repleted. D/w CCM plan for possible conference call with patient's POA tomorrow to further discuss plan of care and possible alternatives. 05/10: Mentation unchanged. Given patient multiple failed PST, plan for possible trach and PEG per CCM. General Surgery consulted. No plan for HD today, low K repleted. Proph AC resumed, plt is stable. 05/11: Na remains elevated, continue FWF. Mildly hypertensive, continue PRN Hydral for SBP> 170. Possible trach and Peg on sunday by Gen. Surgery. 05/12: Renal function continue to improve, no indication for any more HD, VasCath D/katlyn. Hypernatremia improved, D/C IVF continue FWF. Hypertensive overnight, Norvasc added and PRN labetalol for SBP greater than 170. NPO After midnight tonight for possible trach and PEG in the am by Gen surgery 05/13: MARY overnight. Plan for Trach and PEG today by Gen. Surgery. Per case m anagement arrangement made for possible LTAC tomorrow. 05/14: s/p tracheostomy, no signs of any complications noted. Febrile this am with low BP and tachycardia, WBcs wnr. Orders placed X1L of IVF, UA, and blood culture. Awaiting PEGT placement by IR. D/C planning for LTAC possibly next week. 05/15: Remains stable on the vent. Mentation unchanged. Remains with low grade fevers, BP normalized post IVF. Awaiting PEGT placement by IR. Electrolytes repleted, repeat lab in the am 05/16: Patient will likely have PEG tube placed tomorrow with IR, potassium repleted, PSV today for approximately 1 hour and 30 minutes Hospitalist Physical - Constitutional Vitals: Temp Pulse Resp BP Pulse Ox 98.2 F 105 H 13 142/74 98 05/16/21 12:00 05/16/21 16:00 05/16/21 16:00 05/16/21 16:00 05/16/21 16:00 General appearance: Present: no acute distress, other (Unresponsive) - EENT Eyes: Present: PERRL, EOM intact ENT: dentition normal - Neck Neck: Present: normal ROM - Respiratory Respiratory effort: normal Respiratory: bilateral: diminished - Cardiovascular Rhythm: regular Heart Sounds: Present: S1 & S2. Absent: systolic murmur, diastolic murmur - Extremities Extremities: no ischemia, pulses intact, pulses symmetrical, No edema, normal temperature, normal color Peripheral Pulses: within normal limits - Abdominal General gastrointestinal: soft, non-tender, non-distended, normal bowel sounds - Integumentary Integumentary: Present: warm, dry - Psychiatric Psychiatric: other (not interactive) - Neurologic Neurologic: other (PERRL, intact cough/gag reflex) - Allied Health Allied health notes reviewed: nursing, RT, social work HEART Score - HEART Score Troponin: Troponin T 0.021 ng/mL (0.00-0.029) 04/20/21 17:10 Results - Labs CBC & Chem 7: 05/16/21 04:24 05/16/21 04:24 Labs: Laboratory Last Values WBC 13.0 K/mm3 (4.5-11.0) H 05/16/21 04:24 RBC 2.79 M/mm3 (3.65-5.03) L 05/16/21 04:24 Hgb 7.6 gm/dl (10.1-14.3) L 05/16/21 04:24 Hct 23.7 % (30.3-42.9) L 05/16/21 04:24 MCV 85 fl (79-97) 05/16/21 04:24 MCH 27 pg (28-32) L 05/16/21 04:24 MCHC 32 % (30-34) 05/16/21 04:24 RDW 15.9 % (13.2-15.2) H 05/16/21 04:24 Plt Count 422 K/mm3 (140-440) 05/16/21 04:24 Add Manual Diff Complete 04/28/21 04:00 Total Counted 100 04/28/21 04:00 Seg Neutrophils % Flavoring Maker 04/28/21 04:00 Seg Neuts % (Manual) 77.0 % (40.0-70.0) H 04/26/21 09:33 Band Neutrophils % 2.0 % 04/28/21 04:00 Lymphocytes % (Manual) 1.0 % (13.4-35.0) L 04/28/21 04:00 Reactive Lymphs % (Man) 0 % 04/28/21 04:00 Monocytes % (Manual) 1.0 % (0.0-7.3) 04/28/21 04:00 Eosinophils % (Manual) 3.0 % (0.0-4.3) 04/28/21 04:00 Metamyelocytes % 1.0 % 04/28/21 04:00 Myelocytes % 0 % 04/28/21 04:00 Promyelocytes % 0 % 04/28/21 04:00 Blast Cells % 0 % 04/28/21 04:00 Nucleated RBC % 4.0 % (0.0-0.9) H 04/28/21 04:00 Seg Neutrophils # Man 11.6 K/mm3 (1.8-7.7) H 04/28/21 04:00 Band Neutrophils # 0.3 K/mm3 04/28/21 04:00 Lymphocytes # (Manual) 0.1 K/mm3 (1.2-5.4) L 04/28/21 04:00 Abs React Lymphs (Man) 0.0 K/mm3 04/28/21 04:00 Monocytes # (Manual) 0.1 K/mm3 (0.0-0.8) 04/28/21 04:00 Eosinophils # (Manual) 0.4 K/mm3 (0.0-0.4) 04/28/21 04:00 Basophils # (Manual) 0.0 K/mm3 (0.0-0.1) 04/28/21 04:00 Metamyelocytes # 0.1 K/mm3 04/28/21 04:00 Myelocytes # 0.0 K/mm3 04/28/21 04:00 Promyelocytes # 0.0 K/mm3 04/28/21 04:00 Blast Cells # 0.0 K/mm3 04/28/21 04:00 WBC Morphology Not Reportable 04/28/21 04:00 Hypersegmented Neuts Not Reportable 04/28/21 04:00 Hyposegmented Neuts Not Reportable 04/28/21 04:00 Hypogranular Neuts Not Reportable 04/28/21 04:00 Smudge Cells Not Reportable 04/28/21 04:00 Toxic Granulation Not Reportable 04/28/21 04:00 Toxic Vacuolation Not Reportable 04/28/21 04:00 Dohle Bodies Not Reportable 04/28/21 04:00 Pelger-Huet Anomaly Not Reportable 04/28/21 04:00 Moni Rods Not Reportable 04/28/21 04:00 Platelet Estimate Consistent w auto 04/28/21 04:00 Clumped Platelets Not Reportable 04/28/21 04:00 Plt Clumps, EDTA Not Reportable 04/28/21 04:00 Large Platelets Few 04/28/21 04:00 Giant Platelets Not Reportable 04/28/21 04:00 Platelet Satelliting Not Reportable 04/28/21 04:00 Plt Morphology Comment Not Reportable 04/28/21 04:00 RBC Morphology Not Reportable 04/28/21 04:00 Dimorphic RBCs Not Reportable 04/28/21 04:00 Polychromasia Not Reportable 04/28/21 04:00 Hypochromasia Not Reportable 04/28/21 04:00 Poikilocytosis Not Reportable 04/28/21 04:00 Anisocytosis Not Reportable 04/28/21 04:00 Microcytosis Not Reportable 04/28/21 04:00 Macrocytosis Not Reportable 04/28/21 04:00 Spherocytes Not Reportable 04/28/21 04:00 Pappenheimer Bodies Not Reportable 04/28/21 04:00 Sickle Cells Not Reportable 04/28/21 04:00 Target Cells 1+ 04/28/21 04:00 Tear Drop Cells Not Reportable 04/28/21 04:00 Ovalocytes Not Reportable 04/28/21 04:00 Helmet Cells Not Reportable 04/28/21 04:00 Parkinson-[place] Bodies Not Reportable 04/28/21 04:00 Orrum Rings Not Reportable 04/28/21 04:00 Alma Cells Not Reportable 04/28/21 04:00 Bite Cells Not Reportable 04/28/21 04:00 Crenated Cell Not Reportable 04/28/21 04:00 Elliptocytes Not Reportable 04/28/21 04:00 Acanthocytes (Spur) Not Reportable 04/28/21 04:00 Rouleaux Not Reportable 04/28/21 04:00 Hemoglobin C Crystals Not Reportable 04/28/21 04:00 Schistocytes Not Reportable 04/28/21 04:00 Malaria parasites Not Reportable 04/28/21 04:00 Herrera Bodies Not Reportable 04/28/21 04:00 Hem Pathologist Commnt No 04/28/21 04:00 PT 14.7 Sec. (12.2-14.9) 05/13/21 04:24 INR 1.04 (0.87-1.13) 05/13/21 04:24 APTT 36.6 Sec. (24.2-36.6) 04/28/21 05:00 Heparin Anti-Xa, Unfract Negative (Negative) 04/24/21 17:29 ABG pH 7.487 (7.320-7.450) H 05/02/21 04:34 POC ABG pCO2 35.3 mmHg (32.0-48.0) 05/02/21 04:34 ABG pCO2 31.6 mm Hg 04/21/21 15:47 POC ABG pO2 78.6 mmHg (83-108) L 05/02/21 04:34 ABG pO2 168.1 mm Hg (80.0-90.0) H 04/21/21 15:47 POC ABG HCO3 26.1 05/02/21 04:34 ABG HCO3 23.3 mmol/L (20.0-26.0) 04/21/21 15:47 ABG O2 Saturation 96.0 (0-100) 05/02/21 04:34 ABG O2 Content 12.7 (0.0-44) 04/21/21 15:47 POC ABG Base Excess 2.9 05/02/21 04:34 ABG Base Excess 0.3 mmol/L (-2.0-3.0) 04/21/21 15:47 ABG Hemoglobin 11.5 (12.0-17.5) L 05/02/21 04:34 ABG Oxyhemoglobin 95.1 (94-98) 05/02/21 04:34 ABG Carboxyhemoglobin 1.0 % (0.0-5.0) 04/21/21 15:47 ABG Methemoglobin 0.3 (0.0-1.5) 05/02/21 04:34 ABG Sodium 138.6 mmol/L (136.0-145.0) 05/02/21 04:34 ABG Potassium 3.4 mmol/L (3.40-4.50) 05/02/21 04:34 ABG Chloride 105.0 mmol/L (98-107) 05/02/21 04:34 ABG Glucose 122 mg/dL (65-95) H 05/02/21 04:34 VBG pH 7.397 (7.320-7.420) 04/20/21 17:10 Oxyhemoglobin 97.5 % (95.0-99.0) 04/21/21 15:47 Carboxyhemoglobin 0.6 (0.5-1.5) 05/02/21 04:34 FiO2 100 % 04/21/21 15:47 FiO2 % 40.0 05/02/21 04:34 Sodium 144 mmol/L (137-145) 05/16/21 04:24 Potassium 3.5 mmol/L (3.6-5.0) L 05/16/21 04:24 Chloride 107.9 mmol/L (98-107) H 05/16/21 04:24 Carbon Dioxide 23 mmol/L (22-30) 05/16/21 04:24 Anion Gap 17 mmol/L 05/16/21 04:24 BUN 20 mg/dL (7-17) H 05/16/21 04:24 Creatinine 1.0 mg/dL (0.6-1.2) 05/16/21 04:24 Estimated GFR > 60 ml/min 05/16/21 04:24 BUN/Creatinine Ratio 20 % 05/16/21 04:24 Glucose 157 mg/dL (65-100) H 05/16/21 04:24 POC Glucose 137 mg/dL (70-105) H 05/16/21 11:58 Hemoglobin A1c 17.1 % (4-6) H 04/22/21 15:55 Lactic Acid 1.90 mmol/L (0.7-2.0) 04/20/21 19:56 Calcium 8.3 mg/dL (8.4-10.2) L 05/16/21 04:24 Phosphorus 3.00 mg/dL (2.5-4.5) D 05/16/21 04:24 Magnesium 1.90 mg/dL (1.7-2.3) 05/16/21 04:24 Iron 62 ug/dL (37-170) 04/24/21 17:29 TIBC 285 mcg/dL (250-450) 04/24/21 17:29 % Saturation 21.75 % 04/24/21 17:29 Transferrin 112 mg/dl (192-382) L 04/24/21 17:29 Total Bilirubin 0.20 mg/dL (0.1-1.2) 05/03/21 04:00 Direct Bilirubin < 0.2 mg/dL (0-0.2) 04/29/21 04:00 Indirect Bilirubin 0.1 mg/dL 04/29/21 04:00 AST 53 units/L (5-40) H 05/03/21 04:00 ALT 55 units/L (7-56) 05/03/21 04:00 Alkaline Phosphatase 149 units/L (35-129) H 05/03/21 04:00 Ammonia 29.0 umol/L (25-60) 04/20/21 17:10 Total Creatine Kinase 1000 units/L (30-135) H 04/27/21 07:43 CK-MB (CK-2) 36.0 ng/mL (0.0-4.0) H 04/20/21 17:10 CK-MB (CK-2) Rel Index 0.9 (0-4) 04/20/21 17:10 Troponin T 0.021 ng/mL (0.00-0.029) 04/20/21 17:10 Serum Total Protein 5.5 g/dL (6.1-8.1) L 04/22/21 08:59 Total Protein 5.2 g/dL (6.3-8.2) L 05/03/21 04:00 Albumin 1.5 g/dL (3.9-5) L 05/03/21 04:00 Albumin/Globulin Ratio 0.4 % 05/03/21 04:00 Icsgc-9-Vrajwvvtl 0.6 g/dL (0.2-0.3) H 04/22/21 08:59 Ddoia-4-Zmdvokprv 1.0 g/dL (0.5-0.9) H 04/22/21 08:59 Beta Globulins 0.3 g/dL (0.2-0.5) 04/22/21 08:59 Gamma Globulins 0.6 g/dL (0.8-1.7) L 04/22/21 08:59 Abnorm Protein Band 1 see below 04/22/21 08:59 PEP Interpretation see below H 04/22/21 08:59 Triglycerides 80 mg/dL (2-149) 05/04/21 04:48 Cholesterol 90 mg/dL (50-199) 05/04/21 04:48 LDL Cholesterol Direct 51 mg/dL (50-130) 05/04/21 04:48 HDL Cholesterol 24 mg/dL (40-59) L 05/04/21 04:48 Cholesterol/HDL Ratio 3.75 % 05/04/21 04:48 Serotonin Release Assay See scanned result 04/24/21 17:29 TSH 6.040 mlU/mL (0.270-4.200) H 04/20/21 17:10 Free T4 0.93 ng/dL (0.76-1.46) 04/20/21 17:10 Arterial Blood Glucose 122 mg/dL (65-95) H 05/02/21 04:34 Arterial Blood Ionized Calcium 4.5 mg/dL (4.6-5.3) L 04/28/21 05:18 Urine Color Yellow (Yellow) 05/14/21 10:57 Urine Turbidity Clear (Clear) 05/14/21 10:57 Urine pH 7.0 (5.0-7.0) 05/14/21 10:57 Ur Specific [place] 1.012 (1.003-1.030) 05/14/21 10:57 Urine Protein 30 mg/dl mg/dL (Negative) 05/14/21 10:57 Urine Glucose (UA) 150 mg/dL (Negative) 05/14/21 10:57 Urine Ketones Neg mg/dL (Negative) 05/14/21 10:57 Urine Blood Sm (Negative) 05/14/21 10:57 Urine Nitrite Neg (Negative) 05/14/21 10:57 Urine Bilirubin Neg (Negative) 05/14/21 10:57 Urine Urobilinogen < 2.0 mg/dL (<2.0) 05/14/21 10:57 Ur Leukocyte Esterase Tr (Negative) 05/14/21 10:57 Urine WBC (Auto) 8.0 /HPF (0.0-6.0) H 05/14/21 10:57 Urine RBC (Auto) 9.0 /HPF (0.0-6.0) 05/14/21 10:57 U Epithel Cells (Auto) 4.0 /HPF (0-13.0) 04/29/21 13:30 Urine Bacteria (Auto) 1+ /HPF (Negative) 05/14/21 10:57 Urine WBC Clumps 3+ /HPF 04/29/21 13:30 Urine Mucus Few /HPF 05/14/21 10:57 Urine Yeast (Budding) 1+ /HPF 05/14/21 10:57 Urine Osmolality 446 Mosm/kg 04/21/21 08:01 Urine Total Volume 1700 ml 05/08/21 09:34 Urine Creatinine 56.0 mg/dL (0.1-20.0) H 05/08/21 09:34 Ur Creatinine 24 Hour 1.0 (0.8-2.8) 05/08/21 09:34 Urine Sodium 71 mmol/L 04/21/21 08:01 Urine Total Protein 12 mg/dL (5-11.8) H 04/21/21 08:01 CSF Appearance Clear 04/29/21 11:45 CSF Color Colorless 04/29/21 11:45 CSF WBC 14 /mm3 (1-10) 04/29/21 11:45 CSF RBC 324 /mm3 (0-0) 04/29/21 11:45 CSF Seg Neutrophils 50.0 % (0-6) 04/29/21 11:45 CSF Lymphocytes % 40.0 % (40-80) 04/29/21 11:45 CSF Reactive Lymphs Not Reportable 04/29/21 11:45 CSF Monocytes % 10.0 % (15-45) 04/29/21 11:45 CSF Eosinophils % Not Reportable 04/29/21 11:45 CSF Basophils Not Reportable 04/29/21 11:45 CSF Pathologist Review C 04/29/21 11:45 CSF Glucose 161 mg/dL 04/29/21 11:45 CSF Total Protein 51 mg/dL 04/29/21 11:45 Plasma/Serum Alcohol < 0.01 % (0-0.07) 04/20/21 17:10 Heparin-induced Plt Ab Negative (Negative) 04/24/21 17:29 UF Heparin High Dose 1 % Release 04/24/21 17:29 EFE UFH Low Dose 0.1 0 % Release 04/24/21 17:29 EFE UFH Low Dose 0.5 0 % Release 04/24/21 17:29 Coronavirus (PCR) Negative (Negative) 04/21/21 Unknown Hepatitis A IgM Ab Non-reactive (NonReactive) 04/27/21 12:49 Hep Bs Antigen Nonreactive (Negative) 04/27/21 12:49 Hep B Core IgM Ab Non-reactive (NonReactive) 04/27/21 12:49 Hepatitis C Antibody Non-reactive (NonReactive) 04/27/21 12:49 Blood Type O POSITIVE 05/02/21 12:00 Antibody Screen Negative 05/02/21 12:00 Crossmatch See Detail 05/02/21 12:00 Microbiology: Microbiology 05/14/21 15:05 Peripheral/Venous Blood Culture - Preliminary NO GROWTH AFTER 24 HOURS 05/14/21 15:08 Peripheral/Venous Blood Culture - Preliminary NO GROWTH AFTER 24 HOURS Luther/IV: Voiding Method Indwelling Catheter Active Medications - Current Medications Current Medications: Generic Name Dose Route Start Last Admin Trade Name Freq PRN Reason Stop Dose Admin Acetaminophen 650 mg 04/20/21 21:31 05/14/21 09:50 Acetaminophen 325 Mg Tab PO 650 mg Q4H PRN Administration Pain MILD(1-3)/Fever >100.5/TURCIOS Albuterol 2.5 mg 04/22/21 14:49 04/23/21 15:18 Albuterol 2.5 Mg/3 Ml Nebu IH 2.5 mg Q4HRT PRN Administration Shortness Of Breath Amlodipine Besylate 5 mg 05/12/21 10:00 05/16/21 09:30 Amlodipine 5 Mg Tab PO 5 mg QDAY AZIZA Administration Lipase/Protease/Amylase 1 each 04/25/21 14:13 Lipase 10,500/Protease 25,000/Amylase 43,750 (Units) Dr Vasquez FEEDTUBE PRN PRN For Clogged Feeding Tube Aspirin 81 mg 05/04/21 10:00 05/16/21 09:30 Aspirin 81 Mg Tab Chew FEEDTUBE 81 mg QDAY AZIZA Administration Atorvastatin Calcium 40 mg 05/04/21 22:00 05/15/21 21:50 Atorvastatin 40 Mg Tab FEEDTUBE 40 mg QHS AZIZA Administration Dextrose 0 ml 05/16/21 10:50 Dextrose 10% *Hypoglycemia IV PRN PRN Hypoglycemia Famotidine 10 mg 04/27/21 10:00 05/16/21 09:30 Famotidine 10 Mg Tab FEEDTUBE 10 mg BID AZIZA Administration Heparin Sodium (Porcine) 5,000 unit 05/10/21 22:00 05/16/21 09:31 Heparin 5,000 Unit/1 Ml Vial SUB-Q 5,000 unit Q12HR AZIZA Administration Hydrophilic Ointment 1 applic 04/26/21 11:16 Lip Therapy Vaseline TP Q2HR PRN Dry Lips Insulin Human Lispro 0 unit 04/25/21 18:00 05/16/21 06:29 Insulin Lispro 100 Unit/Ml SUB-Q 3 unit Q6HR AZIZA Administration Protocol Labetalol HCl 20 mg 05/12/21 11:34 05/12/21 21:35 Labetalol 20 Mg/4 Ml Inj IV 20 mg Q4H PRN Administration SBP >/=170 Levothyroxine Sodium 50 mcg 05/03/21 06:00 05/16/21 06:29 Levothyroxine 50 Mcg Tab PO 50 mcg DAILY@0600 AZIZA Administration Lorazepam 1 mg 04/26/21 11:15 05/12/21 16:27 Lorazepam 2 Mg/Ml Vial IV 1 mg Q4H PRN Administration Sedation Metoclopramide HCl 5 mg 04/20/21 21:31 Metoclopramide 10 Mg/2 Ml Inj IV Q6H PRN Nausea And Vomiting Multi-Ingred Cream/Lotion/Oil/Oint 1 applic 04/26/21 11:16 Mineral Oil/Petrolatum, White Ophth Oint 3.5 Gm OU Q4HR PRN Dry Eye(s) Ondansetron HCl 4 mg 04/20/21 21:31 Ondansetron 4 Mg/2 Ml Inj IV Q8H PRN Nausea And Vomiting Senna/Docusate Sodium 1 tab 04/26/21 22:00 05/16/21 09:31 Sennosides/Docusate Sodium 8.6/50 Mg Tab FEEDTUBE 1 tab BID AZIZA Administration Simple Syrup 15 ml 04/25/21 14:13 Simple Syrup 15 Ml FEEDTUBE PRN PRN Hypoglycemia Simple Syrup 30 ml 04/25/21 14:13 Simple Syrup 15 Ml FEEDTUBE PRN PRN Hypoglycemia Sodium Bicarbonate 325 mg 04/25/21 14:13 04/27/21 13:00 Sodium Bicarbonate 325 Mg Tab FEEDTUBE 325 mg PRN PRN Administration For Clogged Feeding Tube Sodium Bicarbonate 1,300 mg 04/27/21 14:00 05/16/21 14:14 Sodium Bicarbonate 650 Mg Tab PO 1,300 mg TID AZIZA Administration Sodium Chloride 10 ml 04/20/21 22:00 05/16/21 09:31 Sodium Chloride 0.9% 10 Ml Flush Syringe IV 10 ml BID AZIZA Administration Sodium Chloride 10 ml 04/20/21 21:31 Sodium Chloride 0.9% 10 Ml Flush Syringe IV PRN PRN LINE FLUSH Sodium Chloride 10 ml 05/16/21 09:47 Sodium Chloride 0.9% 50 Ml Ivpb IV PRN PRN FLUSH Nutrition/Malnutrition Assess - Dietary Evaluation Nutrition/Malnutrition Findings: Nutrition Notes Start: 04/21/21 12:15 Freq: Status: Active Protocol: Document 05/16/21 14:49 JOSE (Rec: 05/16/21 14:57 JOSE [id number]) Nutrition Notes Current Diet NPO. Height 5 ft 2 in Weight 72.4 kg [place] Body Weight (kg) 50.00 BMI 29.2 Weight change and time frame No body weight change reported . Weight Status Overweight Subjective/Other Information RD consult for routine F/U on TF continuation. Pt still on mechanical ventilation. PEG tube expected to be placed later today. Will F/U tomorrow for TF continuation. #1 Nutrition Diagnosis Inadequate oral intake Diagnosis Progress(for reassessment Continues documentation) Nutrition Intervention Follow-Up By: 05/17/21 Additional Comments F/U: PEG placement, TF restart with Glucerna 1.2, vent status <RUPAL VIZCAINO - Last Filed: 05/20/21 09:37> Assessment and Plan Assessment and plan: I saw and evaluated the patient. I agree with the findings and the plan of care as documented in the Nurse Practitioner's~note, with the following corrections and additions. Hospitalist Physical - Constitutional Vitals: Temp Pulse Resp BP Pulse Ox 98.2 F 94 H 23 93/58 100 05/20/21 08:00 05/20/21 07:20 05/20/21 06:01 05/20/21 07:20 05/20/21 07:20 HEART Score - HEART Score Troponin: Troponin T 0.021 ng/mL (0.00-0.029) 04/20/21 17:10 Results - Labs CBC & Chem 7: 05/20/21 04:29 05/19/21 07:12 Labs: Laboratory Last Values WBC 14.4 K/mm3 (4.5-11.0) H 05/20/21 04:29 RBC 2.96 M/mm3 (3.65-5.03) L 05/20/21 04:29 Hgb 7.7 gm/dl (10.1-14.3) L 05/20/21 04:29 Hct 24.9 % (30.3-42.9) L 05/20/21 04:29 MCV 84 fl (79-97) 05/20/21 04:29 MCH 26 pg (28-32) L 05/20/21 04:29 MCHC 31 % (30-34) 05/20/21 04:29 RDW 15.5 % (13.2-15.2) H 05/20/21 04:29 Plt Count 362 K/mm3 (140-440) 05/20/21 04:29 Add Manual Diff Complete 04/28/21 04:00 Total Counted 100 04/28/21 04:00 Seg Neutrophils % Flavoring Maker 04/28/21 04:00 Seg Neuts % (Manual) 77.0 % (40.0-70.0) H 04/26/21 09:33 Band Neutrophils % 2.0 % 04/28/21 04:00 Lymphocytes % (Manual) 1.0 % (13.4-35.0) L 04/28/21 04:00 Reactive Lymphs % (Man) 0 % 04/28/21 04:00 Monocytes % (Manual) 1.0 % (0.0-7.3) 04/28/21 04:00 Eosinophils % (Manual) 3.0 % (0.0-4.3) 04/28/21 04:00 Metamyelocytes % 1.0 % 04/28/21 04:00 Myelocytes % 0 % 04/28/21 04:00 Promyelocytes % 0 % 04/28/21 04:00 Blast Cells % 0 % 04/28/21 04:00 Nucleated RBC % 4.0 % (0.0-0.9) H 04/28/21 04:00 Seg Neutrophils # Man 11.6 K/mm3 (1.8-7.7) H 04/28/21 04:00 Band Neutrophils # 0.3 K/mm3 04/28/21 04:00 Lymphocytes # (Manual) 0.1 K/mm3 (1.2-5.4) L 04/28/21 04:00 Abs React Lymphs (Man) 0.0 K/mm3 04/28/21 04:00 Monocytes # (Manual) 0.1 K/mm3 (0.0-0.8) 04/28/21 04:00 Eosinophils # (Manual) 0.4 K/mm3 (0.0-0.4) 04/28/21 04:00 Basophils # (Manual) 0.0 K/mm3 (0.0-0.1) 04/28/21 04:00 Metamyelocytes # 0.1 K/mm3 04/28/21 04:00 Myelocytes # 0.0 K/mm3 04/28/21 04:00 Promyelocytes # 0.0 K/mm3 04/28/21 04:00 Blast Cells # 0.0 K/mm3 04/28/21 04:00 WBC Morphology Not Reportable 04/28/21 04:00 Hypersegmented Neuts Not Reportable 04/28/21 04:00 Hyposegmented Neuts Not Reportable 04/28/21 04:00 Hypogranular Neuts Not Reportable 04/28/21 04:00 Smudge Cells Not Reportable 04/28/21 04:00 Toxic Granulation Not Reportable 04/28/21 04:00 Toxic Vacuolation Not Reportable 04/28/21 04:00 Dohle Bodies Not Reportable 04/28/21 04:00 Pelger-Huet Anomaly Not Reportable 04/28/21 04:00 Moni Rods Not Reportable 04/28/21 04:00 Platelet Estimate Consistent w auto 04/28/21 04:00 Clumped Platelets Not Reportable 04/28/21 04:00 Plt Clumps, EDTA Not Reportable 04/28/21 04:00 Large Platelets Few 04/28/21 04:00 Giant Platelets Not Reportable 04/28/21 04:00 Platelet Satelliting Not Reportable 04/28/21 04:00 Plt Morphology Comment Not Reportable 04/28/21 04:00 RBC Morphology Not Reportable 04/28/21 04:00 Dimorphic RBCs Not Reportable 04/28/21 04:00 Polychromasia Not Reportable 04/28/21 04:00 Hypochromasia Not Reportable 04/28/21 04:00 Poikilocytosis Not Reportable 04/28/21 04:00 Anisocytosis Not Reportable 04/28/21 04:00 Microcytosis Not Reportable 04/28/21 04:00 Macrocytosis Not Reportable 04/28/21 04:00 Spherocytes Not Reportable 04/28/21 04:00 Pappenheimer Bodies Not Reportable 04/28/21 04:00 Sickle Cells Not Reportable 04/28/21 04:00 Target Cells 1+ 04/28/21 04:00 Tear Drop Cells Not Reportable 04/28/21 04:00 Ovalocytes Not Reportable 04/28/21 04:00 Helmet Cells Not Reportable 04/28/21 04:00 [place] Bodies Not Reportable 04/28/21 04:00 Orrum Rings Not Reportable 04/28/21 04:00 [place] Cells Not Reportable 04/28/21 04:00 Bite Cells Not Reportable 04/28/21 04:00 Crenated Cell Not Reportable 04/28/21 04:00 Elliptocytes Not Reportable 04/28/21 04:00 Acanthocytes (Spur) Not Reportable 04/28/21 04:00 Rouleaux Not Reportable 04/28/21 04:00 Hemoglobin C Crystals Not Reportable 04/28/21 04:00 Schistocytes Not Reportable 04/28/21 04:00 Malaria parasites Not Reportable 04/28/21 04:00 Herrera Bodies Not Reportable 04/28/21 04:00 Hem Pathologist Commnt No 04/28/21 04:00 PT 15.2 Sec. (12.2-14.9) H 05/19/21 07:12 INR 1.08 (0.87-1.13) 05/19/21 07:12 APTT 36.6 Sec. (24.2-36.6) 04/28/21 05:00 Heparin Anti-Xa, Unfract Negative (Negative) 04/24/21 17:29 ABG pH 7.487 (7.320-7.450) H 05/02/21 04:34 POC ABG pCO2 35.3 mmHg (32.0-48.0) 05/02/21 04:34 ABG pCO2 31.6 mm Hg 04/21/21 15:47 POC ABG pO2 78.6 mmHg (83-108) L 05/02/21 04:34 ABG pO2 168.1 mm Hg (80.0-90.0) H 04/21/21 15:47 POC ABG HCO3 26.1 05/02/21 04:34 ABG HCO3 23.3 mmol/L (20.0-26.0) 04/21/21 15:47 ABG O2 Saturation 96.0 (0-100) 05/02/21 04:34 ABG O2 Content 12.7 (0.0-44) 04/21/21 15:47 POC ABG Base Excess 2.9 05/02/21 04:34 ABG Base Excess 0.3 mmol/L (-2.0-3.0) 04/21/21 15:47 ABG Hemoglobin 11.5 (12.0-17.5) L 05/02/21 04:34 ABG Oxyhemoglobin 95.1 (94-98) 05/02/21 04:34 ABG Carboxyhemoglobin 1.0 % (0.0-5.0) 04/21/21 15:47 ABG Methemoglobin 0.3 (0.0-1.5) 05/02/21 04:34 ABG Sodium 138.6 mmol/L (136.0-145.0) 05/02/21 04:34 ABG Potassium 3.4 mmol/L (3.40-4.50) 05/02/21 04:34 ABG Chloride 105.0 mmol/L (98-107) 05/02/21 04:34 ABG Glucose 122 mg/dL (65-95) H 05/02/21 04:34 VBG pH 7.397 (7.320-7.420) 04/20/21 17:10 Oxyhemoglobin 97.5 % (95.0-99.0) 04/21/21 15:47 Carboxyhemoglobin 0.6 (0.5-1.5) 05/02/21 04:34 FiO2 100 % 04/21/21 15:47 FiO2 % 40.0 05/02/21 04:34 Sodium 143 mmol/L (137-145) 05/19/21 07:12 Potassium 3.9 mmol/L (3.6-5.0) 05/19/21 07:12 Chloride 109.1 mmol/L (98-107) H 05/19/21 07:12 Carbon Dioxide 22 mmol/L (22-30) 05/19/21 07:12 Anion Gap 16 mmol/L 05/19/21 07:12 BUN 16 mg/dL (7-17) 05/19/21 07:12 Creatinine 0.9 mg/dL (0.6-1.2) 05/19/21 07:12 Estimated GFR > 60 ml/min 05/19/21 07:12 BUN/Creatinine Ratio 18 % 05/19/21 07:12 Glucose 174 mg/dL (65-100) H 05/19/21 07:12 POC Glucose 144 mg/dL (70-105) H 05/20/21 05:18 Hemoglobin A1c 17.1 % (4-6) H 04/22/21 15:55 Lactic Acid 1.90 mmol/L (0.7-2.0) 04/20/21 19:56 Calcium 8.0 mg/dL (8.4-10.2) L 05/19/21 07:12 Phosphorus 3.40 mg/dL (2.5-4.5) 05/19/21 07:12 Magnesium 1.70 mg/dL (1.7-2.3) 05/19/21 07:12 Iron 62 ug/dL (37-170) 04/24/21 17:29 TIBC 285 mcg/dL (250-450) 04/24/21 17:29 % Saturation 21.75 % 04/24/21 17:29 Transferrin 112 mg/dl (192-382) L 04/24/21 17:29 Total Bilirubin 0.20 mg/dL (0.1-1.2) 05/03/21 04:00 Direct Bilirubin < 0.2 mg/dL (0-0.2) 04/29/21 04:00 Indirect Bilirubin 0.1 mg/dL 04/29/21 04:00 AST 53 units/L (5-40) H 05/03/21 04:00 ALT 55 units/L (7-56) 05/03/21 04:00 Alkaline Phosphatase 149 units/L (35-129) H 05/03/21 04:00 Ammonia 29.0 umol/L (25-60) 04/20/21 17:10 Total Creatine Kinase 1000 units/L (30-135) H 04/27/21 07:43 CK-MB (CK-2) 36.0 ng/mL (0.0-4.0) H 04/20/21 17:10 CK-MB (CK-2) Rel Index 0.9 (0-4) 04/20/21 17:10 Troponin T 0.021 ng/mL (0.00-0.029) 04/20/21 17:10 Serum Total Protein 5.5 g/dL (6.1-8.1) L 04/22/21 08:59 Total Protein 5.2 g/dL (6.3-8.2) L 05/03/21 04:00 Albumin 1.5 g/dL (3.9-5) L 05/03/21 04:00 Albumin/Globulin Ratio 0.4 % 05/03/21 04:00 Iqudf-6-Pwtgtdkvm 0.6 g/dL (0.2-0.3) H 04/22/21 08:59 Ubhxj-3-Mkqvygopm 1.0 g/dL (0.5-0.9) H 04/22/21 08:59 Beta Globulins 0.3 g/dL (0.2-0.5) 04/22/21 08:59 Gamma Globulins 0.6 g/dL (0.8-1.7) L 04/22/21 08:59 Abnorm Protein Band 1 see below 04/22/21 08:59 PEP Interpretation see below H 04/22/21 08:59 Triglycerides 80 mg/dL (2-149) 05/04/21 04:48 Cholesterol 90 mg/dL (50-199) 05/04/21 04:48 LDL Cholesterol Direct 51 mg/dL (50-130) 05/04/21 04:48 HDL Cholesterol 24 mg/dL (40-59) L 05/04/21 04:48 Cholesterol/HDL Ratio 3.75 % 05/04/21 04:48 Serotonin Release Assay See scanned result 04/24/21 17:29 TSH 6.040 mlU/mL (0.270-4.200) H 04/20/21 17:10 Free T4 0.93 ng/dL (0.76-1.46) 04/20/21 17:10 Arterial Blood Glucose 122 mg/dL (65-95) H 05/02/21 04:34 Arterial Blood Ionized Calcium 4.5 mg/dL (4.6-5.3) L 04/28/21 05:18 Urine Color Yellow (Yellow) 05/14/21 10:57 Urine Turbidity Clear (Clear) 05/14/21 10:57 Urine pH 7.0 (5.0-7.0) 05/14/21 10:57 Ur Specific [place] 1.012 (1.003-1.030) 05/14/21 10:57 Urine Protein 30 mg/dl mg/dL (Negative) 05/14/21 10:57 Urine Glucose (UA) 150 mg/dL (Negative) 05/14/21 10:57 Urine Ketones Neg mg/dL (Negative) 05/14/21 10:57 Urine Blood Sm (Negative) 05/14/21 10:57 Urine Nitrite Neg (Negative) 05/14/21 10:57 Urine Bilirubin Neg (Negative) 05/14/21 10:57 Urine Urobilinogen < 2.0 mg/dL (<2.0) 05/14/21 10:57 Ur Leukocyte Esterase Tr (Negative) 05/14/21 10:57 Urine WBC (Auto) 8.0 /HPF (0.0-6.0) H 05/14/21 10:57 Urine RBC (Auto) 9.0 /HPF (0.0-6.0) 05/14/21 10:57 U Epithel Cells (Auto) 4.0 /HPF (0-13.0) 04/29/21 13:30 Urine Bacteria (Auto) 1+ /HPF (Negative) 05/14/21 10:57 Urine WBC Clumps 3+ /HPF 04/29/21 13:30 Urine Mucus Few /HPF 05/14/21 10:57 Urine Yeast (Budding) 1+ /HPF 05/14/21 10:57 Urine Osmolality 446 Mosm/kg 04/21/21 08:01 Urine Total Volume 1700 ml 05/08/21 09:34 Urine Creatinine 56.0 mg/dL (0.1-20.0) H 05/08/21 09:34 Ur Creatinine 24 Hour 1.0 (0.8-2.8) 05/08/21 09:34 Urine Sodium 71 mmol/L 04/21/21 08:01 Urine Total Protein 12 mg/dL (5-11.8) H 04/21/21 08:01 CSF Appearance Clear 04/29/21 11:45 CSF Color Colorless 04/29/21 11:45 CSF WBC 14 /mm3 (1-10) 04/29/21 11:45 CSF RBC 324 /mm3 (0-0) 04/29/21 11:45 CSF Seg Neutrophils 50.0 % (0-6) 04/29/21 11:45 CSF Lymphocytes % 40.0 % (40-80) 04/29/21 11:45 CSF Reactive Lymphs Not Reportable 04/29/21 11:45 CSF Monocytes % 10.0 % (15-45) 04/29/21 11:45 CSF Eosinophils % Not Reportable 04/29/21 11:45 CSF Basophils Not Reportable 04/29/21 11:45 CSF Pathologist Review C 04/29/21 11:45 CSF Glucose 161 mg/dL 04/29/21 11:45 CSF Total Protein 51 mg/dL 04/29/21 11:45 Plasma/Serum Alcohol < 0.01 % (0-0.07) 04/20/21 17:10 Heparin-induced Plt Ab Negative (Negative) 04/24/21 17:29 UF Heparin High Dose 1 % Release 04/24/21 17:29 EFE UFH Low Dose 0.1 0 % Release 04/24/21 17:29 EFE UFH Low Dose 0.5 0 % Release 04/24/21 17:29 Coronavirus (PCR) Negative (Negative) 04/21/21 Unknown Hepatitis A IgM Ab Non-reactive (NonReactive) 04/27/21 12:49 Hep Bs Antigen Nonreactive (Negative) 04/27/21 12:49 Hep B Core IgM Ab Non-reactive (NonReactive) 04/27/21 12:49 Hepatitis C Antibody Non-reactive (NonReactive) 04/27/21 12:49 Blood Type O POSITIVE 05/02/21 12:00 Antibody Screen Negative 05/02/21 12:00 Crossmatch See Detail 05/02/21 12:00 Microbiology: Microbiology 05/14/21 15:05 Peripheral/Venous Blood Culture - Final NO GROWTH AFTER 5 DAYS 05/14/21 15:08 Peripheral/Venous Blood Culture - Final NO GROWTH AFTER 5 DAYS Luther/IV: Voiding Method Indwelling Catheter Active Medications - Current Medications Current Medications: Generic Name Dose Route Start Last Admin Trade Name Freq PRN Reason Stop Dose Admin Acetaminophen 650 mg 04/20/21 21:31 05/14/21 09:50 Acetaminophen 325 Mg Tab PO 650 mg Q4H PRN Administration Pain MILD(1-3)/Fever >100.5/TURCIOS Albuterol 2.5 mg 04/22/21 14:49 04/23/21 15:18 Albuterol 2.5 Mg/3 Ml Nebu IH 2.5 mg Q4HRT PRN Administration Shortness Of Breath Amlodipine Besylate 5 mg 05/17/21 10:00 05/19/21 10:33 Amlodipine 5 Mg Tab FEEDTUBE Not Given QDAY AZIZA Lipase/Protease/Amylase 1 each 04/25/21 14:13 Lipase 10,500/Protease 25,000/Amylase 43,750 (Units) Dr Vasquez FEEDTUBE PRN PRN For Clogged Feeding Tube Aspirin 81 mg 05/04/21 10:00 05/19/21 10:34 Aspirin 81 Mg Tab Chew FEEDTUBE Not Given QDAY [facility] Atorvastatin Calcium 40 mg 05/04/21 22:00 05/19/21 21:12 Atorvastatin 40 Mg Tab FEEDTUBE Not Given QHS [facility] Dextrose 0 ml 05/16/21 10:50 Dextrose 10% *Hypoglycemia IV PRN PRN Hypoglycemia Famotidine 10 mg 04/27/21 10:00 05/19/21 21:12 Famotidine 10 Mg Tab FEEDTUBE Not Given BID [facility] Heparin Sodium (Porcine) 5,000 unit 05/10/21 22:00 05/19/21 21:12 Heparin 5,000 Unit/1 Ml Vial SUB-Q 5,000 unit Q12HR [facility] Administration Hydrophilic Ointment 1 applic 04/26/21 11:16 Lip Therapy Vaseline TP Q2HR PRN Dry Lips Insulin Human Lispro 0 unit 04/25/21 18:00 05/20/21 06:16 Insulin Lispro 100 Unit/Ml SUB-Q Not Given Q6HR [facility] Protocol Labetalol HCl 20 mg 05/12/21 11:34 05/17/21 18:37 Labetalol 20 Mg/4 Ml Inj IV 20 mg Q4H PRN Administration SBP >/=170 Levothyroxine Sodium 50 mcg 05/03/21 06:00 05/20/21 06:16 Levothyroxine 50 Mcg Tab PO Not Given DAILY@0600 [facility] Lorazepam 1 mg 04/26/21 11:15 05/19/21 06:00 Lorazepam 2 Mg/Ml Vial IV 1 mg Q4H PRN Administration Sedation Metoclopramide HCl 5 mg 04/20/21 21:31 Metoclopramide 10 Mg/2 Ml Inj IV Q6H PRN Nausea And Vomiting Multi-Ingred Cream/Lotion/Oil/Oint 1 applic 04/26/21 11:16 Mineral Oil/Petrolatum, White Ophth Oint 3.5 Gm OU Q4HR PRN Dry Eye(s) Ondansetron HCl 4 mg 04/20/21 21:31 Ondansetron 4 Mg/2 Ml Inj IV Q8H PRN Nausea And Vomiting Senna/Docusate Sodium 1 tab 04/26/21 22:00 05/19/21 21:12 Sennosides/Docusate Sodium 8.6/50 Mg Tab FEEDTUBE Not Given BID AZIZA Simple Syrup 15 ml 04/25/21 14:13 Simple Syrup 15 Ml FEEDTUBE PRN PRN Hypoglycemia Simple Syrup 30 ml 04/25/21 14:13 Simple Syrup 15 Ml FEEDTUBE PRN PRN Hypoglycemia Sodium Bicarbonate 325 mg 04/25/21 14:13 05/18/21 16:11 Sodium Bicarbonate 325 Mg Tab FEEDTUBE 325 mg PRN PRN Administration For Clogged Feeding Tube Sodium Bicarbonate 1,300 mg 04/27/21 14:00 05/19/21 20:07 Sodium Bicarbonate 650 Mg Tab PO Not Given TID AZIZA Sodium Chloride 10 ml 04/20/21 22:00 05/19/21 21:12 Sodium Chloride 0.9% 10 Ml Flush Syringe IV 10 ml BID AZIZA Administration Sodium Chloride 10 ml 04/20/21 21:31 Sodium Chloride 0.9% 10 Ml Flush Syringe IV PRN PRN LINE FLUSH Sodium Chloride 10 ml 05/16/21 09:47 Sodium Chloride 0.9% 50 Ml Ivpb IV PRN PRN FLUSH Nutrition/Malnutrition Assess - Dietary Evaluation Nutrition/Malnutrition Findings: Nutrition Notes Start: 04/21/21 12:15 Freq: Status: Active Protocol: Document 05/19/21 15:39 JOSE (Rec: 05/19/21 15:50 JOSE [id number]) Nutrition Notes Initial or Follow up Brief Note Current Diet NPO (since 05/19 00:01). Height 5 ft 2 in Weight 72.4 kg [place] Body Weight (kg) 50.00 BMI 29.2 Weight change and time frame No body weight change reported . Weight Status Overweight Subjective/Other Information RD consult for TF resume. Procedure 05/19: Ultrasonic and fluoroscopic guided placement of 18 [place] Percutaneous Gastrostomy Tube, with no immediate postoperative complications. Plans to be discharged tomorrow to LTAC. Pt continues on mechanical ventilation. Have not received order for TF management. Percent of energy/protein needs met: Pt continues NPO. Minimum of two criteria No #1 Nutrition Diagnosis Inadequate oral intake Comments: PEG tube placed. Diagnosis Progress(for reassessment Improved documentation) Is patient on ventilator? Yes Is Patient Ambulatory and/or Out of Bed No REE-([place]-confined to bed) 1221.167 Calculation Used for Recommendations [place] Additional Notes ro needs 1.2-2g/k-145g/ day Fluid needs 1ml/kcal Nutrition Intervention Follow-Up By: 05/20/21 Additional Comments F/U: TF restart with Glucerna 1.2, vent status.
[2021-05-17] MEDS: INSULIN LISPRO 100 UNIT/ML SUB-Q SCH ×5 (00:05→23:50)
[2021-05-17 05:14] LABS: Hematocrit 24.6 % (30.3-42.9); Hemoglobin 7.4 gm/dl (10.1-14.3); Mean Corpuscular HGB Conc 30 % (30-34); Mean Corpuscular Volume 85 fl (79-97); Platelet Count 403 K/mm3 (140-440); Red Blood Count 2.91 M/mm3 (3.65-5.03); Red Cell Distribution Width 15.4 % (13.2-15.2)
[2021-05-17 05:26] LABS: INR 1.1 (0.87-1.13)
[2021-05-17 05:37] LABS: BUN/Creatinine Ratio 20; Blood Urea Nitrogen 18 mg/dL (7-17); Calcium 8.5 mg/dL (8.4-10.2); Hemolysis Index 6
[2021-05-17] MEDS: LEVOTHYROXINE 50 MCG TAB PO SCH (06:26)
[2021-05-17] MEDS: SODIUM BICARBONATE 650 MG TAB PO SCH ×3 (08:50→21:29)
--- NOTE | 2021-05-17 09:42 | Event Note ---
Date: 05/17/21 Reviewed notes and noted that gastrostomy tube required prior to LTAC transfer. N.p.o. after midnight on Sunday for plan for gastrostomy tube .
--- NOTE | 2021-05-17 09:44 | Progress Note ---
Assessment and Plan 80 y/o female with altered mental state, severe electrolyte imbalance with presumptive acute renal failure and hypothermia. 05/17/21: Per IR peg on . Continue supportive measures. 05/16/21: Peg at some point. Once pegged transfer to LTACH. Continue PSV as tolerated. 05/13/21: Trach today. Per CM transfer to LTACH tomorrow. Supportive care 05/12/21: Daily PSV trials. NPO after midnight and chemistry in am. Trach tania orrow and then transfer over the weekend if all goes well. 05/11/21: Awaiting trach and peg placement. Discontinue vascath. Daily pSV trials. 05/10/21: Long discussion over phone with POA. Discussed what I felt was prognosis. Per POA, feels best thing to do at this moment is proceed with trach and peg. Will consult surgery for this. Spoke with renal and they feel she likely will not need HD anymore. Will keep catheter at least another 24-36 hours and likely remove sometime tomorrow. Continue daily PSV and other supportive measures. Placement post Trach. 05/09/21: Will reach out to neuro for more help. Read their note this am but need a definite plan. Would like to meet/talk with POA about next steps but need a better idea of what her neuro prognosis is. Continue daily PSV trials. Prognosis overall appears to be very guarded to poor. 05/08/21: Continue supportive measures. HD per renal. Follow up neuro recs tomorrow. Need to start talking with family about next steps but need neuro input. Daily pSV to document failing. 05/07/21: Continue supportive measures. HD per renal. Follow up neuro recs tomorrow. Need to start talking with family about next steps but need neuro input. 05/06/21: Await neurology recs now that LINCOLN Could not be done. Based on neurology note, no direct source for stroke on MRA. Patient was seen on this day and can be confirmed by staff. Not sure why my note did not save. 05/05/21: follow up neurology notes. They are discussing with cards the LINCOLN. Continue vent support. Poor prognosis. 05/04/21: follow up MRA when done. LINCOLN pending. HD per renal. Daily PSV trials as tolerated. Poor prognosis given MRI findings and lack of responsiveness off sedation. 05/03/21: Follow up Neurology recs for today. Attempt PSV trials. HD on yesterday. Very very guarded prognosis. 05/02/21: MRI today. Repeat cultures. HD per renal. Once MRI results back will discuss with Neurosurgery to see if anything further should be done. Abx per ID. Overall prognosis is very guarded to poor. 04/29/21: Will reach out to neuro after 24-48 hours post spinal tap pending any change in mentation. If improvement, may need to consider shunt placement. If not, not sure that there is anything they can offer. if they still want MRI, then can obtain. Now spiking temps. Blood cultures and UA. Given time frame in Hospital will place on Vanc and Cefepime. Guarded prognosis. HD per renal. Given anasarca, will ask renal about trying to remove volume. 04/28/21: Will discuss with renal about HD again today. MRI vs LP (large amount). Coags are ok. Will attempt to get at least one of these done today. Patient is still on 80% but sat is 100. Will ask [employer] about placing ART line today. Wean FiO2 as tolerated. Guarded prognosis. 04/27/21: HD today per renal. Vascath placed and awaiting CXR for conformation of good placement (done and good). Vent weaning as tolerated for sats >88%. ABG in the AM. Will check Coags in the am and hopeful these are stable. Platelets need to above 50K. Would like to do large volume spinal tap to see if this helps with mentation. Will also obtain MRI once oxygen requirement improves. 04/26/21: WIll electively intubate and then obtain MRI. Pending MRI results, will likely order large volume spinal tap to assess if NPH is a factor or not. Guarded prognosis. Electrolytes are improving. 04/25/21: Continue to follow renal recs. Will reach out to POA either today or tomorrow for further updates. Follow up renal recs. Monitor electrolytes and renal function. Guarded prognosis. 1. Neuro-reached out to neuro surgery, placed consult in regards to CT findings 2. Renal-appreciate help and recs, will follow IV hydration recommendations 3. Blood cultures. Urine was negative 4. Jorge Hugger for temp Guarded prognosis CCT 31 minutes. Subjective Date of service: 05/17/21 Principal diagnosis: Acute respiratory failure Interval history: No acute events. Stable pulm status. Objective Vital Signs - 12hr 05/16/21 05/16/21 05/16/21 22:01 23:01 23:33 Temperature Pulse Rate 100 H 100 H 98 H Pulse Rate [ From Monitor] Respiratory 22 17 Rate Blood Pressure 137/77 150/81 150/81 O2 Sat by Pulse 99 99 99 Oximetry 05/17/21 05/17/21 05/17/21 00:00 01:00 02:00 Temperature 99.4 F Pulse Rate 100 H 97 H 88 Pulse Rate [ 105 H From Monitor] Respiratory 15 17 14 Rate Blood Pressure 135/87 132/74 120/65 O2 Sat by Pulse 98 99 99 Oximetry 05/17/21 05/17/21 05/17/21 03:00 03:32 03:44 Temperature 99.9 F H Pulse Rate 96 H 87 Pulse Rate [ From Monitor] Respiratory 18 Rate Blood Pressure 135/72 135/72 O2 Sat by Pulse 99 98 Oximetry 05/17/21 05/17/21 05/17/21 04:00 04:01 05:00 Temperature Pulse Rate 99 H 97 H 101 H Pulse Rate [ 105 H From Monitor] Respiratory 13 20 15 Rate Blood Pressure 151/86 149/81 O2 Sat by Pulse 98 98 99 Oximetry 05/17/21 05/17/21 06:00 08:44 Temperature Pulse Rate 91 H 90 Pulse Rate [ From Monitor] Respiratory 14 Rate Blood Pressure 129/68 136/79 O2 Sat by Pulse 99 98 Oximetry Constitutional: other (critically ill, somnolent, on vent) Eyes: non-icteric ENT: oropharynx dry Effort: other (tachypneic but not labored) Ascultation: Bilateral: clear Cardiovascular: regular rate and rhythm Gastrointestinal: normoactive bowel sounds Integumentary: normal Extremities: no cyanosis, no edema, pink and warm Neurologic: unable to assess Psychiatric: other (unable to assess) CBC and BMP: 05/17/21 04:14 05/17/21 04:14 ABG, PT/INR, D-dimer: ABG ABG pH 7.487 (7.320-7.450) H 05/02/21 04:34 POC ABG pCO2 35.3 mmHg (32.0-48.0) 05/02/21 04:34 ABG pCO2 31.6 mm Hg 04/21/21 15:47 POC ABG pO2 78.6 mmHg (83-108) L 05/02/21 04:34 ABG pO2 168.1 mm Hg (80.0-90.0) H 04/21/21 15:47 POC ABG HCO3 26.1 05/02/21 04:34 ABG O2 Saturation 96.0 (0-100) 05/02/21 04:34 PT/INR, D-dimer PT 15.4 Sec. (12.2-14.9) H 05/17/21 04:14 INR 1.10 (0.87-1.13) 05/17/21 04:14 Abnormal lab findings: Abnormal Labs 04/20/21 04/20/21 04/20/21 17:10 17:10 17:10 WBC 17.4 H RBC 5.19 H Hgb Hct 46.8 H MCH 27 L RDW 17.2 H Plt Count Seg Neuts % (Manual) 98.0 H Lymphocytes % (Manual) 2.0 L Nucleated RBC % 1.0 H Seg Neutrophils # Man 17.1 H Lymphocytes # (Manual) 0.3 L PT ABG pH POC ABG pCO2 POC ABG pO2 ABG pO2 ABG O2 Saturation ABG Base Excess ABG Hemoglobin ABG Oxyhemoglobin ABG Potassium ABG Chloride ABG Glucose Oxyhemoglobin Carboxyhemoglobin Sodium 173 H* Potassium Chloride 132.9 H Carbon Dioxide 17 L BUN 120 H Creatinine 4.2 H Glucose 762 H* POC Glucose Hemoglobin A1c Lactic Acid Calcium Phosphorus Magnesium 3.80 H Transferrin AST 72 H ALT 63 H Alkaline Phosphatase 148 H Total Creatine Kinase 3697 H CK-MB (CK-2) 36.0 H Serum Total Protein Total Protein Albumin 2.2 L Vwksx-1-Chejhejiy Aauaj-0-Hanumoalp Gamma Globulins PEP Interpretation HDL Cholesterol TSH Arterial Blood Glucose Arterial Blood Ionized Calcium Urine WBC (Auto) Urine Creatinine Urine Total Protein Crossmatch 04/20/21 04/20/21 04/20/21 17:10 17:10 18:55 WBC RBC Hgb Hct MCH RDW Plt Count Seg Neuts % (Manual) Lymphocytes % (Manual) Nucleated RBC % Seg Neutrophils # Man Lymphocytes # (Manual) PT ABG pH POC ABG pCO2 POC ABG pO2 ABG pO2 ABG O2 Saturation ABG Base Excess ABG Hemoglobin ABG Oxyhemoglobin ABG Potassium ABG Chloride ABG Glucose Oxyhemoglobin Carboxyhemoglobin Sodium Potassium Chloride Carbon Dioxide BUN Creatinine Glucose POC Glucose 574 H Hemoglobin A1c Lactic Acid 2.60 H* Calcium Phosphorus Magnesium Transferrin AST ALT Alkaline Phosphatase Total Creatine Kinase CK-MB (CK-2) Serum Total Protein Total Protein Albumin Oalhk-7-Nnfnvfaoe Lgoal-7-Xhdjmqkca Gamma Globulins PEP Interpretation HDL Cholesterol TSH 6.040 H Arterial Blood Glucose Arterial Blood Ionized Calcium Urine WBC (Auto) Urine Creatinine Urine Total Protein Crossmatch 04/20/21 04/20/21 04/20/21 22:12 22:58 22:58 WBC RBC Hgb Hct MCH RDW Plt Count Seg Neuts % (Manual) Lymphocytes % (Manual) Nucleated RBC % Seg Neutrophils # Man Lymphocytes # (Manual) PT ABG pH POC ABG pCO2 POC ABG pO2 ABG pO2 ABG O2 Saturation ABG Base Excess ABG Hemoglobin ABG Oxyhemoglobin ABG Potassium ABG Chloride ABG Glucose Oxyhemoglobin Carboxyhemoglobin Sodium 172 H* Potassium 3.2 L Chloride 134.2 H Carbon Dioxide 17 L BUN 112 H Creatinine 3.8 H Glucose 803 H* POC Glucose 554 H Hemoglobin A1c Lactic Acid Calcium 8.3 L Phosphorus Magnesium 3.50 H Transferrin AST ALT Alkaline Phosphatase Total Creatine Kinase CK-MB (CK-2) Serum Total Protein Total Protein Albumin Ztwrh-2-Ilzynhgfm Yjrbt-5-Whivydrpc Gamma Globulins PEP Interpretation HDL Cholesterol TSH Arterial Blood Glucose Arterial Blood Ionized Calcium Urine WBC (Auto) Urine Creatinine Urine Total Protein Crossmatch 04/21/21 04/21/21 04/21/21 00:14 00:22 02:01 WBC RBC Hgb Hct MCH RDW Plt Count Seg Neuts % (Manual) Lymphocytes % (Manual) Nucleated RBC % Seg Neutrophils # Man Lymphocytes # (Manual) PT ABG pH POC ABG pCO2 POC ABG pO2 ABG pO2 ABG O2 Saturation ABG Base Excess ABG Hemoglobin ABG Oxyhemoglobin ABG Potassium ABG Chloride ABG Glucose Oxyhemoglobin Carboxyhemoglobin Sodium 176 H* 175 H* Potassium 2.9 L* 3.0 L Chloride 139.9 H 136.2 H Carbon Dioxide 17 L 19 L BUN 113 H 112 H Creatinine 3.9 H 3.6 H Glucose 729 H* 582 H* POC Glucose > 600 H Hemoglobin A1c Lactic Acid Calcium Phosphorus Magnesium Transferrin AST ALT Alkaline Phosphatase Total Creatine Kinase CK-MB (CK-2) Serum Total Protein Total Protein Albumin Nkzry-1-Onqxamvpg Jfpgz-4-Wrcwshaau Gamma Globulins PEP Interpretation HDL Cholesterol TSH Arterial Blood Glucose Arterial Blood Ionized Calcium Urine WBC (Auto) Urine Creatinine Urine Total Protein Crossmatch 04/21/21 04/21/21 04/21/21 03:11 03:20 03:41 WBC 14.1 H RBC Hgb Hct MCH 27 L RDW 16.8 H Plt Count 114 L Seg Neuts % (Manual) 97.0 H Lymphocytes % (Manual) 3.0 L Nucleated RBC % 1.0 H Seg Neutrophils # Man 13.7 H Lymphocytes # (Manual) 0.4 L PT ABG pH POC ABG pCO2 POC ABG pO2 ABG pO2 52.3 L ABG O2 Saturation 84.5 L ABG Base Excess -2.9 L ABG Hemoglobin ABG Oxyhemoglobin ABG Potassium ABG Chloride ABG Glucose Oxyhemoglobin 82.9 L Carboxyhemoglobin Sodium Potassium Chloride Carbon Dioxide BUN Creatinine Glucose POC Glucose 404 H Hemoglobin A1c Lactic Acid Calcium Phosphorus Magnesium Transferrin AST ALT Alkaline Phosphatase Total Creatine Kinase CK-MB (CK-2) Serum Total Protein Total Protein Albumin Rzqjq-0-Umlopqwqi Ayruc-8-Zsmbzjtny Gamma Globulins PEP Interpretation HDL Cholesterol TSH Arterial Blood Glucose Arterial Blood Ionized Calcium Urine WBC (Auto) Urine Creatinine Urine Total Protein Crossmatch 04/21/21 04/21/21 04/21/21 03:41 04:24 05:45 WBC RBC Hgb Hct MCH RDW Plt Count Seg Neuts % (Manual) Lymphocytes % (Manual) Nucleated RBC % Seg Neutrophils # Man Lymphocytes # (Manual) PT ABG pH POC ABG pCO2 POC ABG pO2 ABG pO2 ABG O2 Saturation ABG Base Excess ABG Hemoglobin ABG Oxyhemoglobin ABG Potassium ABG Chloride ABG Glucose Oxyhemoglobin Carboxyhemoglobin Sodium 179 H* Potassium 2.9 L* Chloride 138.2 H Carbon Dioxide 20 L BUN 111 H Creatinine 3.7 H Glucose 465 H POC Glucose 353 H 280 H Hemoglobin A1c Lactic Acid Calcium Phosphorus Magnesium Transferrin AST 73 H ALT 61 H Alkaline Phosphatase 144 H Total Creatine Kinase CK-MB (CK-2) Serum Total Protein Total Protein Albumin 2.5 L Evnzi-1-Mbgipsohc Hinir-9-Wjqlchedy Gamma Globulins PEP Interpretation HDL Cholesterol TSH Arterial Blood Glucose Arterial Blood Ionized Calcium Urine WBC (Auto) Urine Creatinine Urine Total Protein Crossmatch 04/21/21 04/21/21 04/21/21 06:47 08:01 11:11 WBC RBC Hgb Hct MCH RDW Plt Count Seg Neuts % (Manual) Lymphocytes % (Manual) Nucleated RBC % Seg Neutrophils # Man Lymphocytes # (Manual) PT ABG pH POC ABG pCO2 POC ABG pO2 ABG pO2 ABG O2 Saturation ABG Base Excess ABG Hemoglobin ABG Oxyhemoglobin ABG Potassium ABG Chloride ABG Glucose Oxyhemoglobin Carboxyhemoglobin Sodium Potassium Chloride Carbon Dioxide BUN Creatinine Glucose POC Glucose 260 H 68 L Hemoglobin A1c Lactic Acid Calcium Phosphorus Magnesium Transferrin AST ALT Alkaline Phosphatase Total Creatine Kinase CK-MB (CK-2) Serum Total Protein Total Protein Albumin Qzuau-7-Eezcahaqp Kycaa-5-Qnxfgmftn Gamma Globulins PEP Interpretation HDL Cholesterol TSH Arterial Blood Glucose Arterial Blood Ionized Calcium Urine WBC (Auto) Urine Creatinine 44.3 H Urine Total Protein 12 H Crossmatch 04/21/21 04/21/21 04/21/21 12:51 13:41 14:40 WBC RBC Hgb Hct MCH RDW Plt Count Seg Neuts % (Manual) Lymphocytes % (Manual) Nucleated RBC % Seg Neutrophils # Man Lymphocytes # (Manual) PT ABG pH 7.275 L POC ABG pCO2 POC ABG pO2 63.4 L ABG pO2 ABG O2 Saturation ABG Base Excess ABG Hemoglobin 8.4 L ABG Oxyhemoglobin 89.5 L ABG Potassium ABG Chloride 108.0 H ABG Glucose 404 H Oxyhemoglobin Carboxyhemoglobin Sodium Potassium Chloride Carbon Dioxide BUN Creatinine Glucose POC Glucose 146 H 186 H Hemoglobin A1c Lactic Acid Calcium Phosphorus Magnesium Transferrin AST ALT Alkaline Phosphatase Total Creatine Kinase CK-MB (CK-2) Serum Total Protein Total Protein Albumin Juuob-6-Dblrquscd Vhead-8-Zwuwtlwef Gamma Globulins PEP Interpretation HDL Cholesterol TSH Arterial Blood Glucose 404 H Arterial Blood Ionized Calcium Urine WBC (Auto) Urine Creatinine Urine Total Protein Crossmatch 04/21/21 04/21/21 04/21/21 15:47 16:25 17:57 WBC RBC Hgb Hct MCH RDW Plt Count Seg Neuts % (Manual) Lymphocytes % (Manual) Nucleated RBC % Seg Neutrophils # Man Lymphocytes # (Manual) PT ABG pH 7.486 H POC ABG pCO2 POC ABG pO2 ABG pO2 168.1 H ABG O2 Saturation 99.1 H ABG Base Excess ABG Hemoglobin 8.9 L ABG Oxyhemoglobin ABG Potassium ABG Chloride ABG Glucose Oxyhemoglobin Carboxyhemoglobin Sodium Potassium Chloride Carbon Dioxide BUN Creatinine Glucose POC Glucose 172 H 143 H Hemoglobin A1c Lactic Acid Calcium Phosphorus Magnesium Transferrin AST ALT Alkaline Phosphatase Total Creatine Kinase CK-MB (CK-2) Serum Total Protein Total Protein Albumin Dydce-7-Rxetymhof Lwxch-9-Bmdwfcbul Gamma Globulins PEP Interpretation HDL Cholesterol TSH Arterial Blood Glucose Arterial Blood Ionized Calcium Urine WBC (Auto) Urine Creatinine Urine Total Protein Crossmatch 04/21/21 04/21/21 04/21/21 18:49 19:10 20:26 WBC RBC Hgb Hct MCH RDW Plt Count Seg Neuts % (Manual) Lymphocytes % (Manual) Nucleated RBC % Seg Neutrophils # Man Lymphocytes # (Manual) PT ABG pH POC ABG pCO2 POC ABG pO2 ABG pO2 ABG O2 Saturation ABG Base Excess ABG Hemoglobin ABG Oxyhemoglobin ABG Potassium ABG Chloride ABG Glucose Oxyhemoglobin Carboxyhemoglobin Sodium 174 H* Potassium 7.2 H* D Chloride 138.2 H Carbon Dioxide 21 L BUN 99 H Creatinine 4.0 H Glucose 157 H POC Glucose 126 H 190 H Hemoglobin A1c Lactic Acid Calcium Phosphorus Magnesium Transferrin AST 134 H ALT 71 H Alkaline Phosphatase 135 H Total Creatine Kinase 3504 H CK-MB (CK-2) Serum Total Protein Total Protein Albumin 2.2 L Whcpz-7-Fstoirnjy Xhbyb-9-Asgwtgrwc Gamma Globulins PEP Interpretation HDL Cholesterol TSH Arterial Blood Glucose Arterial Blood Ionized Calcium Urine WBC (Auto) Urine Creatinine Urine Total Protein Crossmatch 04/21/21 04/21/21 04/21/21 20:53 21:52 22:55 WBC RBC Hgb Hct MCH RDW Plt Count Seg Neuts % (Manual) Lymphocytes % (Manual) Nucleated RBC % Seg Neutrophils # Man Lymphocytes # (Manual) PT ABG pH POC ABG pCO2 POC ABG pO2 ABG pO2 ABG O2 Saturation ABG Base Excess ABG Hemoglobin ABG Oxyhemoglobin ABG Potassium ABG Chloride ABG Glucose Oxyhemoglobin Carboxyhemoglobin Sodium Potassium Chloride Carbon Dioxide BUN Creatinine Glucose POC Glucose 116 H 135 H 158 H Hemoglobin A1c Lactic Acid Calcium Phosphorus Magnesium Transferrin AST ALT Alkaline Phosphatase Total Creatine Kinase CK-MB (CK-2) Serum Total Protein Total Protein Albumin Aseod-6-Sqywmupfz Ewscd-3-Sevhmgvzp Gamma Globulins PEP Interpretation HDL Cholesterol TSH Arterial Blood Glucose Arterial Blood Ionized Calcium Urine WBC (Auto) Urine Creatinine Urine Total Protein Crossmatch 04/21/21 04/22/21 04/22/21 23:00 00:01 00:39 WBC RBC Hgb Hct MCH RDW Plt Count Seg Neuts % (Manual) Lymphocytes % (Manual) Nucleated RBC % Seg Neutrophils # Man Lymphocytes # (Manual) PT ABG pH POC ABG pCO2 POC ABG pO2 ABG pO2 ABG O2 Saturation ABG Base Excess ABG Hemoglobin ABG Oxyhemoglobin ABG Potassium ABG Chloride ABG Glucose Oxyhemoglobin Carboxyhemoglobin Sodium 176 H* 171 H* Potassium Chloride 140.0 H Carbon Dioxide 20 L BUN 98 H Creatinine 3.9 H Glucose 206 H POC Glucose 182 H Hemoglobin A1c Lactic Acid Calcium Phosphorus Magnesium Transferrin AST ALT Alkaline Phosphatase Total Creatine Kinase 3240 H CK-MB (CK-2) Serum Total Protein Total Protein Albumin Gckij-0-Xgugzdxln Qikrn-9-Kovdqvcbw Gamma Globulins PEP Interpretation HDL Cholesterol TSH Arterial Blood Glucose Arterial Blood Ionized Calcium Urine WBC (Auto) Urine Creatinine Urine Total Protein Crossmatch 04/22/21 04/22/21 04/22/21 00:58 01:04 04:52 WBC 11.2 H RBC Hgb Hct 44.3 H MCH 27 L RDW 17.1 H Plt Count 86 L Seg Neuts % (Manual) 86.0 H Lymphocytes % (Manual) 13.0 L Nucleated RBC % Seg Neutrophils # Man 9.6 H Lymphocytes # (Manual) PT ABG pH POC ABG pCO2 POC ABG pO2 ABG pO2 ABG O2 Saturation ABG Base Excess ABG Hemoglobin ABG Oxyhemoglobin ABG Potassium ABG Chloride ABG Glucose Oxyhemoglobin Carboxyhemoglobin Sodium Potassium Chloride Carbon Dioxide BUN Creatinine Glucose POC Glucose 176 H 143 H Hemoglobin A1c Lactic Acid Calcium Phosphorus Magnesium Transferrin AST ALT Alkaline Phosphatase Total Creatine Kinase CK-MB (CK-2) Serum Total Protein Total Protein Albumin Llypq-7-Drwbpqpvr Mcwzz-6-Nggkfafyk Gamma Globulins PEP Interpretation HDL Cholesterol TSH Arterial Blood Glucose Arterial Blood Ionized Calcium Urine WBC (Auto) Urine Creatinine Urine Total Protein Crossmatch 04/22/21 04/22/21 04/22/21 06:07 06:09 07:18 WBC RBC Hgb Hct MCH RDW Plt Count Seg Neuts % (Manual) Lymphocytes % (Manual) Nucleated RBC % Seg Neutrophils # Man Lymphocytes # (Manual) PT ABG pH POC ABG pCO2 POC ABG pO2 ABG pO2 ABG O2 Saturation ABG Base Excess ABG Hemoglobin ABG Oxyhemoglobin ABG Potassium ABG Chloride ABG Glucose Oxyhemoglobin Carboxyhemoglobin Sodium Potassium Chloride Carbon Dioxide BUN Creatinine Glucose POC Glucose 206 H 163 H 158 H Hemoglobin A1c Lactic Acid Calcium Phosphorus Magnesium Transferrin AST ALT Alkaline Phosphatase Total Creatine Kinase CK-MB (CK-2) Serum Total Protein Total Protein Albumin Raogv-9-Fkxfvknea Ensrp-8-Eqrtcphrh Gamma Globulins PEP Interpretation HDL Cholesterol TSH Arterial Blood Glucose Arterial Blood Ionized Calcium Urine WBC (Auto) Urine Creatinine Urine Total Protein Crossmatch 04/22/21 04/22/21 04/22/21 08:59 08:59 08:59 WBC RBC Hgb Hct MCH RDW Plt Count Seg Neuts % (Manual) Lymphocytes % (Manual) Nucleated RBC % Seg Neutrophils # Man Lymphocytes # (Manual) PT ABG pH POC ABG pCO2 POC ABG pO2 ABG pO2 ABG O2 Saturation ABG Base Excess ABG Hemoglobin ABG Oxyhemoglobin ABG Potassium ABG Chloride ABG Glucose Oxyhemoglobin Carboxyhemoglobin Sodium 169 H* Potassium 3.5 L Chloride 134.5 H Carbon Dioxide 20 L BUN 95 H Creatinine 3.6 H Glucose 151 H POC Glucose Hemoglobin A1c Lactic Acid Calcium Phosphorus Magnesium Transferrin AST 121 H ALT 75 H Alkaline Phosphatase 137 H Total Creatine Kinase 3105 H CK-MB (CK-2) Serum Total Protein 5.5 L Total Protein 6.0 L Albumin 2.8 L 2.1 L Wgmez-2-Pmolynrqt 0.6 H Ykykl-0-Egqjuathm 1.0 H Gamma Globulins 0.6 L PEP Interpretation see below H HDL Cholesterol TSH Arterial Blood Glucose Arterial Blood Ionized Calcium Urine WBC (Auto) Urine Creatinine Urine Total Protein Crossmatch 04/22/21 04/22/21 04/22/21 09:44 10:24 12:20 WBC RBC Hgb Hct MCH RDW Plt Count Seg Neuts % (Manual) Lymphocytes % (Manual) Nucleated RBC % Seg Neutrophils # Man Lymphocytes # (Manual) PT ABG pH POC ABG pCO2 POC ABG pO2 ABG pO2 ABG O2 Saturation ABG Base Excess ABG Hemoglobin ABG Oxyhemoglobin ABG Potassium ABG Chloride ABG Glucose Oxyhemoglobin Carboxyhemoglobin Sodium Potassium Chloride Carbon Dioxide BUN Creatinine Glucose POC Glucose 107 H 131 H Hemoglobin A1c Lactic Acid Calcium Phosphorus Magnesium 2.80 H Transferrin AST ALT Alkaline Phosphatase Total Creatine Kinase CK-MB (CK-2) Serum Total Protein Total Protein Albumin Sqefo-9-Nofmwbsay Whwpw-2-Xgkpynmco Gamma Globulins PEP Interpretation HDL Cholesterol TSH Arterial Blood Glucose Arterial Blood Ionized Calcium Urine WBC (Auto) Urine Creatinine Urine Total Protein Crossmatch 04/22/21 04/22/21 04/22/21 13:19 14:16 15:22 WBC RBC Hgb Hct MCH RDW Plt Count Seg Neuts % (Manual) Lymphocytes % (Manual) Nucleated RBC % Seg Neutrophils # Man Lymphocytes # (Manual) PT ABG pH POC ABG pCO2 POC ABG pO2 ABG pO2 ABG O2 Saturation ABG Base Excess ABG Hemoglobin ABG Oxyhemoglobin ABG Potassium ABG Chloride ABG Glucose Oxyhemoglobin Carboxyhemoglobin Sodium Potassium Chloride Carbon Dioxide BUN Creatinine Glucose POC Glucose 147 H 154 H 136 H Hemoglobin A1c Lactic Acid Calcium Phosphorus Magnesium Transferrin AST ALT Alkaline Phosphatase Total Creatine Kinase CK-MB (CK-2) Serum Total Protein Total Protein Albumin Qtvxd-0-Ysjgqibzl Poaau-0-Qjfeecyij Gamma Globulins PEP Interpretation HDL Cholesterol TSH Arterial Blood Glucose Arterial Blood Ionized Calcium Urine WBC (Auto) Urine Creatinine Urine Total Protein Crossmatch 04/22/21 04/22/21 04/22/21 15:55 15:55 16:22 WBC RBC Hgb Hct MCH RDW Plt Count Seg Neuts % (Manual) Lymphocytes % (Manual) Nucleated RBC % Seg Neutrophils # Man Lymphocytes # (Manual) PT ABG pH POC ABG pCO2 POC ABG pO2 ABG pO2 ABG O2 Saturation ABG Base Excess ABG Hemoglobin ABG Oxyhemoglobin ABG Potassium ABG Chloride ABG Glucose Oxyhemoglobin Carboxyhemoglobin Sodium 169 H* Potassium Chloride 133.5 H Carbon Dioxide 19 L BUN 94 H Creatinine 3.8 H Glucose 150 H POC Glucose 140 H Hemoglobin A1c 17.1 H Lactic Acid Calcium Phosphorus Magnesium Transferrin AST ALT Alkaline Phosphatase Total Creatine Kinase CK-MB (CK-2) Serum Total Protein Total Protein Albumin Cxamk-7-Gnmqksfll Leekt-0-Nuduvhaxf Gamma Globulins PEP Interpretation HDL Cholesterol TSH Arterial Blood Glucose Arterial Blood Ionized Calcium Urine WBC (Auto) Urine Creatinine Urine Total Protein Crossmatch 04/22/21 04/22/21 04/22/21 18:11 18:26 23:19 WBC RBC Hgb Hct MCH RDW Plt Count Seg Neuts % (Manual) Lymphocytes % (Manual) Nucleated RBC % Seg Neutrophils # Man Lymphocytes # (Manual) PT ABG pH POC ABG pCO2 POC ABG pO2 ABG pO2 ABG O2 Saturation ABG Base Excess ABG Hemoglobin ABG Oxyhemoglobin ABG Potassium ABG Chloride ABG Glucose Oxyhemoglobin Carboxyhemoglobin Sodium Potassium Chloride Carbon Dioxide BUN Creatinine Glucose POC Glucose 146 H 188 H Hemoglobin A1c Lactic Acid Calcium Phosphorus Magnesium Transferrin AST ALT Alkaline Phosphatase Total Creatine Kinase 2497 H CK-MB (CK-2) Serum Total Protein Total Protein Albumin Pwoxf-2-Nemcwgqsg Schpa-7-Fhwzhdkmg Gamma Globulins PEP Interpretation HDL Cholesterol TSH Arterial Blood Glucose Arterial Blood Ionized Calcium Urine WBC (Auto) Urine Creatinine Urine Total Protein Crossmatch 04/23/21 04/23/21 04/23/21 00:27 05:23 07:50 WBC RBC Hgb Hct MCH RDW Plt Count Seg Neuts % (Manual) Lymphocytes % (Manual) Nucleated RBC % Seg Neutrophils # Man Lymphocytes # (Manual) PT ABG pH POC ABG pCO2 POC ABG pO2 ABG pO2 ABG O2 Saturation ABG Base Excess ABG Hemoglobin ABG Oxyhemoglobin ABG Potassium ABG Chloride ABG Glucose Oxyhemoglobin Carboxyhemoglobin Sodium 162 H* Potassium Chloride Carbon Dioxide BUN Creatinine Glucose POC Glucose 212 H 239 H Hemoglobin A1c Lactic Acid Calcium Phosphorus Magnesium Transferrin AST ALT Alkaline Phosphatase Total Creatine Kinase CK-MB (CK-2) Serum Total Protein Total Protein Albumin Rwidk-2-Fkleydkav Geplb-6-Wdxsjcqzu Gamma Globulins PEP Interpretation HDL Cholesterol TSH Arterial Blood Glucose Arterial Blood Ionized Calcium Urine WBC (Auto) Urine Creatinine Urine Total Protein Crossmatch 04/23/21 04/23/21 04/23/21 08:13 08:13 08:13 WBC 11.9 H RBC Hgb Hct MCH 26 L RDW 16.5 H Plt Count 72 L Seg Neuts % (Manual) 80.0 H Lymphocytes % (Manual) 5.0 L Nucleated RBC % Seg Neutrophils # Man 9.5 H Lymphocytes # (Manual) 0.6 L PT ABG pH POC ABG pCO2 POC ABG pO2 ABG pO2 ABG O2 Saturation ABG Base Excess ABG Hemoglobin ABG Oxyhemoglobin ABG Potassium ABG Chloride ABG Glucose Oxyhemoglobin Carboxyhemoglobin Sodium 164 H* Potassium Chloride 128.0 H Carbon Dioxide 21 L BUN 93 H Creatinine 3.8 H Glucose 293 H POC Glucose Hemoglobin A1c Lactic Acid Calcium Phosphorus Magnesium Transferrin AST 99 H ALT 70 H Alkaline Phosphatase 147 H Total Creatine Kinase 1803 H CK-MB (CK-2) Serum Total Protein Total Protein 6.1 L Albumin 2.0 L Jupca-9-Xsnphcnev Bohlz-1-Tpxjeyeac Gamma Globulins PEP Interpretation HDL Cholesterol TSH Arterial Blood Glucose Arterial Blood Ionized Calcium Urine WBC (Auto) Urine Creatinine Urine Total Protein Crossmatch 04/23/21 04/23/21 04/23/21 12:06 17:35 18:17 WBC RBC Hgb Hct MCH RDW Plt Count Seg Neuts % (Manual) Lymphocytes % (Manual) Nucleated RBC % Seg Neutrophils # Man Lymphocytes # (Manual) PT ABG pH POC ABG pCO2 POC ABG pO2 ABG pO2 ABG O2 Saturation ABG Base Excess ABG Hemoglobin ABG Oxyhemoglobin ABG Potassium ABG Chloride ABG Glucose Oxyhemoglobin Carboxyhemoglobin Sodium 160 H Potassium Chloride Carbon Dioxide BUN Creatinine Glucose POC Glucose 311 H 370 H Hemoglobin A1c Lactic Acid Calcium Phosphorus Magnesium Transferrin AST ALT Alkaline Phosphatase Total Creatine Kinase CK-MB (CK-2) Serum Total Protein Total Protein Albumin Dgprk-4-Oettvlegx Ysyha-5-Tqburqknr Gamma Globulins PEP Interpretation HDL Cholesterol TSH Arterial Blood Glucose Arterial Blood Ionized Calcium Urine WBC (Auto) Urine Creatinine Urine Total Protein Crossmatch 04/24/21 04/24/21 04/24/21 02:13 06:00 06:00 WBC RBC Hgb Hct MCH 27 L RDW 17.0 H Plt Count 58 L Seg Neuts % (Manual) Lymphocytes % (Manual) 2.0 L Nucleated RBC % Seg Neutrophils # Man 8.9 H Lymphocytes # (Manual) 0.2 L PT ABG pH POC ABG pCO2 POC ABG pO2 ABG pO2 ABG O2 Saturation ABG Base Excess ABG Hemoglobin ABG Oxyhemoglobin ABG Potassium ABG Chloride ABG Glucose Oxyhemoglobin Carboxyhemoglobin Sodium 160 H Potassium Chloride Carbon Dioxide BUN Creatinine Glucose POC Glucose Hemoglobin A1c Lactic Acid Calcium Phosphorus Magnesium 2.90 H Transferrin AST ALT Alkaline Phosphatase Total Creatine Kinase CK-MB (CK-2) Serum Total Protein Total Protein Albumin Yqofu-7-Wppurwbas Zgkwn-3-Kycihhnyt Gamma Globulins PEP Interpretation HDL Cholesterol TSH Arterial Blood Glucose Arterial Blood Ionized Calcium Urine WBC (Auto) Urine Creatinine Urine Total Protein Crossmatch 04/24/21 04/24/21 04/24/21 07:46 08:15 11:34 WBC RBC Hgb Hct MCH RDW Plt Count Seg Neuts % (Manual) Lymphocytes % (Manual) Nucleated RBC % Seg Neutrophils # Man Lymphocytes # (Manual) PT ABG pH POC ABG pCO2 POC ABG pO2 ABG pO2 ABG O2 Saturation ABG Base Excess ABG Hemoglobin ABG Oxyhemoglobin ABG Potassium ABG Chloride ABG Glucose Oxyhemoglobin Carboxyhemoglobin Sodium 159 H Potassium Chloride 125.6 H Carbon Dioxide 19 L BUN 94 H Creatinine 3.7 H Glucose 514 H* POC Glucose 395 H 422 H Hemoglobin A1c Lactic Acid Calcium Phosphorus Magnesium Transferrin AST ALT 61 H Alkaline Phosphatase 155 H Total Creatine Kinase CK-MB (CK-2) Serum Total Protein Total Protein 6.1 L Albumin 1.5 L Vgmad-9-Zbgttzozw Yvsyv-7-Rrkpcribw Gamma Globulins PEP Interpretation HDL Cholesterol TSH Arterial Blood Glucose Arterial Blood Ionized Calcium Urine WBC (Auto) Urine Creatinine Urine Total Protein Crossmatch 04/24/21 04/24/21 04/24/21 13:11 14:01 15:03 WBC RBC Hgb Hct MCH RDW Plt Count Seg Neuts % (Manual) Lymphocytes % (Manual) Nucleated RBC % Seg Neutrophils # Man Lymphocytes # (Manual) PT ABG pH POC ABG pCO2 POC ABG pO2 ABG pO2 ABG O2 Saturation ABG Base Excess ABG Hemoglobin ABG Oxyhemoglobin ABG Potassium ABG Chloride ABG Glucose Oxyhemoglobin Carboxyhemoglobin Sodium Potassium Chloride Carbon Dioxide BUN Creatinine Glucose POC Glucose 384 H 423 H 418 H Hemoglobin A1c Lactic Acid Calcium Phosphorus Magnesium Transferrin AST ALT Alkaline Phosphatase Total Creatine Kinase CK-MB (CK-2) Serum Total Protein Total Protein Albumin Qoear-6-Pempmoing Qkogb-7-Nfjcucfmm Gamma Globulins PEP Interpretation HDL Cholesterol TSH Arterial Blood Glucose Arterial Blood Ionized Calcium Urine WBC (Auto) Urine Creatinine Urine Total Protein Crossmatch 04/24/21 04/24/21 04/24/21 17:29 18:28 19:41 WBC RBC Hgb Hct MCH RDW Plt Count Seg Neuts % (Manual) Lymphocytes % (Manual) Nucleated RBC % Seg Neutrophils # Man Lymphocytes # (Manual) PT ABG pH POC ABG pCO2 POC ABG pO2 ABG pO2 ABG O2 Saturation ABG Base Excess ABG Hemoglobin ABG Oxyhemoglobin ABG Potassium ABG Chloride ABG Glucose Oxyhemoglobin Carboxyhemoglobin Sodium Potassium Chloride Carbon Dioxide BUN Creatinine Glucose POC Glucose 335 H 321 H Hemoglobin A1c Lactic Acid Calcium Phosphorus Magnesium Transferrin 112 L AST ALT Alkaline Phosphatase Total Creatine Kinase CK-MB (CK-2) Serum Total Protein Total Protein Albumin Jcbgc-4-Pzkqynrgs Xonca-0-Uwgiwihuq Gamma Globulins PEP Interpretation HDL Cholesterol TSH Arterial Blood Glucose Arterial Blood Ionized Calcium Urine WBC (Auto) Urine Creatinine Urine Total Protein Crossmatch 04/24/21 04/25/21 04/25/21 22:33 01:28 02:28 WBC RBC Hgb Hct MCH RDW Plt Count Seg Neuts % (Manual) Lymphocytes % (Manual) Nucleated RBC % Seg Neutrophils # Man Lymphocytes # (Manual) PT ABG pH POC ABG pCO2 POC ABG pO2 ABG pO2 ABG O2 Saturation ABG Base Excess ABG Hemoglobin ABG Oxyhemoglobin ABG Potassium ABG Chloride ABG Glucose Oxyhemoglobin Carboxyhemoglobin Sodium Potassium Chloride Carbon Dioxide BUN Creatinine Glucose POC Glucose 349 H 283 H 247 H Hemoglobin A1c Lactic Acid Calcium Phosphorus Magnesium Transferrin AST ALT Alkaline Phosphatase Total Creatine Kinase CK-MB (CK-2) Serum Total Protein Total Protein Albumin Wyjkt-9-Vdxbbfyrf Hwhfs-7-Zramdyxkz Gamma Globulins PEP Interpretation HDL Cholesterol TSH Arterial Blood Glucose Arterial Blood Ionized Calcium Urine WBC (Auto) Urine Creatinine Urine Total Protein Crossmatch 04/25/21 04/25/21 04/25/21 03:25 04:22 05:40 WBC RBC Hgb Hct MCH RDW Plt Count Seg Neuts % (Manual) Lymphocytes % (Manual) Nucleated RBC % Seg Neutrophils # Man Lymphocytes # (Manual) PT ABG pH POC ABG pCO2 POC ABG pO2 ABG pO2 ABG O2 Saturation ABG Base Excess ABG Hemoglobin ABG Oxyhemoglobin ABG Potassium ABG Chloride ABG Glucose Oxyhemoglobin Carboxyhemoglobin Sodium Potassium Chloride Carbon Dioxide BUN Creatinine Glucose POC Glucose 196 H 207 H 204 H Hemoglobin A1c Lactic Acid Calcium Phosphorus Magnesium Transferrin AST ALT Alkaline Phosphatase Total Creatine Kinase CK-MB (CK-2) Serum Total Protein Total Protein Albumin Ehrfm-5-Xxzxlksox Mcsxe-8-Mclqtbuor Gamma Globulins PEP Interpretation HDL Cholesterol TSH Arterial Blood Glucose Arterial Blood Ionized Calcium Urine WBC (Auto) Urine Creatinine Urine Total Protein Crossmatch 04/25/21 04/25/21 04/25/21 05:45 06:43 07:37 WBC RBC Hgb Hct MCH 27 L RDW 17.0 H Plt Count 64 L Seg Neuts % (Manual) 84.0 H Lymphocytes % (Manual) 6.0 L Nucleated RBC % 1.0 H Seg Neutrophils # Man Lymphocytes # (Manual) 0.4 L PT ABG pH POC ABG pCO2 POC ABG pO2 ABG pO2 ABG O2 Saturation ABG Base Excess ABG Hemoglobin ABG Oxyhemoglobin ABG Potassium ABG Chloride ABG Glucose Oxyhemoglobin Carboxyhemoglobin Sodium Potassium Chloride Carbon Dioxide BUN Creatinine Glucose POC Glucose 238 H 201 H Hemoglobin A1c Lactic Acid Calcium Phosphorus Magnesium Transferrin AST ALT Alkaline Phosphatase Total Creatine Kinase CK-MB (CK-2) Serum Total Protein Total Protein Albumin Dxpqk-0-Lrnvwwaxe Hlsok-9-Xhoydfeax Gamma Globulins PEP Interpretation HDL Cholesterol TSH Arterial Blood Glucose Arterial Blood Ionized Calcium Urine WBC (Auto) Urine Creatinine Urine Total Protein Crossmatch 04/25/21 04/25/21 04/25/21 08:11 08:11 08:41 WBC RBC Hgb Hct MCH RDW Plt Count Seg Neuts % (Manual) Lymphocytes % (Manual) Nucleated RBC % Seg Neutrophils # Man Lymphocytes # (Manual) PT ABG pH POC ABG pCO2 POC ABG pO2 ABG pO2 ABG O2 Saturation ABG Base Excess ABG Hemoglobin ABG Oxyhemoglobin ABG Potassium ABG Chloride ABG Glucose Oxyhemoglobin Carboxyhemoglobin Sodium 148 H D Potassium Chloride 115.7 H Carbon Dioxide 21 L BUN 83 H Creatinine 3.6 H Glucose 247 H POC Glucose 220 H Hemoglobin A1c Lactic Acid Calcium Phosphorus Magnesium 2.50 H Transferrin AST 63 H ALT 62 H Alkaline Phosphatase 143 H Total Creatine Kinase CK-MB (CK-2) Serum Total Protein Total Protein 5.4 L Albumin 1.4 L Rrnyy-7-Qzzuombrb Ibxlb-6-Aiguqehnw Gamma Globulins PEP Interpretation HDL Cholesterol TSH Arterial Blood Glucose Arterial Blood Ionized Calcium Urine WBC (Auto) Urine Creatinine Urine Total Protein Crossmatch 04/25/21 04/25/21 04/25/21 09:22 10:31 11:44 WBC RBC Hgb Hct MCH RDW Plt Count Seg Neuts % (Manual) Lymphocytes % (Manual) Nucleated RBC % Seg Neutrophils # Man Lymphocytes # (Manual) PT ABG pH POC ABG pCO2 POC ABG pO2 ABG pO2 ABG O2 Saturation ABG Base Excess ABG Hemoglobin ABG Oxyhemoglobin ABG Potassium ABG Chloride ABG Glucose Oxyhemoglobin Carboxyhemoglobin Sodium Potassium Chloride Carbon Dioxide BUN Creatinine Glucose POC Glucose 228 H 215 H 191 H Hemoglobin A1c Lactic Acid Calcium Phosphorus Magnesium Transferrin AST ALT Alkaline Phosphatase Total Creatine Kinase CK-MB (CK-2) Serum Total Protein Total Protein Albumin Htich-0-Tezlnaott Eusom-4-Uvrbapuma Gamma Globulins PEP Interpretation HDL Cholesterol TSH Arterial Blood Glucose Arterial Blood Ionized Calcium Urine WBC (Auto) Urine Creatinine Urine Total Protein Crossmatch 04/25/21 04/25/21 04/25/21 12:23 13:48 14:11 WBC RBC Hgb Hct MCH RDW Plt Count Seg Neuts % (Manual) Lymphocytes % (Manual) Nucleated RBC % Seg Neutrophils # Man Lymphocytes # (Manual) PT ABG pH POC ABG pCO2 POC ABG pO2 ABG pO2 ABG O2 Saturation ABG Base Excess ABG Hemoglobin ABG Oxyhemoglobin ABG Potassium ABG Chloride ABG Glucose Oxyhemoglobin Carboxyhemoglobin Sodium Potassium Chloride Carbon Dioxide BUN Creatinine Glucose POC Glucose 229 H 177 H 161 H Hemoglobin A1c Lactic Acid Calcium Phosphorus Magnesium Transferrin AST ALT Alkaline Phosphatase Total Creatine Kinase CK-MB (CK-2) Serum Total Protein Total Protein Albumin Nrrwc-3-Qgrqnnirb Axyjc-3-Ysmgykotl Gamma Globulins PEP Interpretation HDL Cholesterol TSH Arterial Blood Glucose Arterial Blood Ionized Calcium Urine WBC (Auto) Urine Creatinine Urine Total Protein Crossmatch 04/25/21 04/25/21 04/26/21 18:01 21:31 01:19 WBC RBC Hgb Hct MCH RDW Plt Count Seg Neuts % (Manual) Lymphocytes % (Manual) Nucleated RBC % Seg Neutrophils # Man Lymphocytes # (Manual) PT ABG pH POC ABG pCO2 POC ABG pO2 ABG pO2 ABG O2 Saturation ABG Base Excess ABG Hemoglobin ABG Oxyhemoglobin ABG Potassium ABG Chloride ABG Glucose Oxyhemoglobin Carboxyhemoglobin Sodium Potassium Chloride Carbon Dioxide BUN Creatinine Glucose POC Glucose 264 H 371 H 356 H Hemoglobin A1c Lactic Acid Calcium Phosphorus Magnesium Transferrin AST ALT Alkaline Phosphatase Total Creatine Kinase CK-MB (CK-2) Serum Total Protein Total Protein Albumin Yzzln-3-Dalwrjsdi Fazli-8-Errwxayco Gamma Globulins PEP Interpretation HDL Cholesterol TSH Arterial Blood Glucose Arterial Blood Ionized Calcium Urine WBC (Auto) Urine Creatinine Urine Total Protein Crossmatch 04/26/21 04/26/21 04/26/21 06:31 09:13 09:33 WBC RBC Hgb Hct MCH 27 L RDW 16.9 H Plt Count 58 L Seg Neuts % (Manual) 77.0 H Lymphocytes % (Manual) 4.0 L Nucleated RBC % 2.0 H Seg Neutrophils # Man Lymphocytes # (Manual) 0.3 L PT ABG pH POC ABG pCO2 POC ABG pO2 ABG pO2 ABG O2 Saturation ABG Base Excess ABG Hemoglobin ABG Oxyhemoglobin ABG Potassium ABG Chloride ABG Glucose Oxyhemoglobin Carboxyhemoglobin Sodium Potassium Chloride Carbon Dioxide BUN Creatinine Glucose POC Glucose 428 H 454 H Hemoglobin A1c Lactic Acid Calcium Phosphorus Magnesium Transferrin AST ALT Alkaline Phosphatase Total Creatine Kinase CK-MB (CK-2) Serum Total Protein Total Protein Albumin Rjcjf-5-Nvsewgkrt Bbcao-5-Mwqvccbjk Gamma Globulins PEP Interpretation HDL Cholesterol TSH Arterial Blood Glucose Arterial Blood Ionized Calcium Urine WBC (Auto) Urine Creatinine Urine Total Protein Crossmatch 04/26/21 04/26/21 04/26/21 09:33 09:33 11:00 WBC RBC Hgb Hct MCH RDW Plt Count Seg Neuts % (Manual) Lymphocytes % (Manual) Nucleated RBC % Seg Neutrophils # Man Lymphocytes # (Manual) PT ABG pH 7.281 L POC ABG pCO2 POC ABG pO2 66.4 L ABG pO2 ABG O2 Saturation ABG Base Excess ABG Hemoglobin 10.9 L ABG Oxyhemoglobin 91 L ABG Potassium ABG Chloride ABG Glucose 521 H Oxyhemoglobin Carboxyhemoglobin Sodium Potassium Chloride Carbon Dioxide 19 L BUN 98 H Creatinine 3.8 H Glucose 530 H* POC Glucose Hemoglobin A1c Lactic Acid Calcium 8.1 L Phosphorus 5.60 H D Magnesium Transferrin AST 60 H ALT 72 H Alkaline Phosphatase 168 H Total Creatine Kinase CK-MB (CK-2) Serum Total Protein Total Protein 4.6 L Albumin 1.7 L Ojylu-9-Kgbdezloy Owqsp-5-Tbahtvlwe Gamma Globulins PEP Interpretation HDL Cholesterol TSH Arterial Blood Glucose 521 H Arterial Blood Ionized Calcium Urine WBC (Auto) Urine Creatinine Urine Total Protein Crossmatch 04/26/21 04/26/21 04/26/21 12:36 15:39 16:18 WBC RBC Hgb Hct MCH RDW Plt Count Seg Neuts % (Manual) Lymphocytes % (Manual) Nucleated RBC % Seg Neutrophils # Man Lymphocytes # (Manual) PT ABG pH 7.275 L POC ABG pCO2 POC ABG pO2 63.4 L ABG pO2 ABG O2 Saturation ABG Base Excess ABG Hemoglobin 8.4 L ABG Oxyhemoglobin 89.5 L ABG Potassium ABG Chloride 108.0 H ABG Glucose 404 H Oxyhemoglobin Carboxyhemoglobin Sodium Potassium Chloride Carbon Dioxide BUN Creatinine Glucose POC Glucose 414 H 324 H Hemoglobin A1c Lactic Acid Calcium Phosphorus Magnesium Transferrin AST ALT Alkaline Phosphatase Total Creatine Kinase CK-MB (CK-2) Serum Total Protein Total Protein Albumin Loqoa-9-Jipszpeoz Fjsju-4-Wpdeeqeko Gamma Globulins PEP Interpretation HDL Cholesterol TSH Arterial Blood Glucose 404 H Arterial Blood Ionized Calcium Urine WBC (Auto) Urine Creatinine Urine Total Protein Crossmatch 04/26/21 04/27/21 04/27/21 21:14 00:07 05:47 WBC RBC Hgb Hct MCH RDW Plt Count Seg Neuts % (Manual) Lymphocytes % (Manual) Nucleated RBC % Seg Neutrophils # Man Lymphocytes # (Manual) PT ABG pH POC ABG pCO2 POC ABG pO2 ABG pO2 ABG O2 Saturation ABG Base Excess ABG Hemoglobin ABG Oxyhemoglobin ABG Potassium ABG Chloride ABG Glucose Oxyhemoglobin Carboxyhemoglobin Sodium Potassium Chloride Carbon Dioxide BUN Creatinine Glucose POC Glucose 242 H 282 H 214 H Hemoglobin A1c Lactic Acid Calcium Phosphorus Magnesium Transferrin AST ALT Alkaline Phosphatase Total Creatine Kinase CK-MB (CK-2) Serum Total Protein Total Protein Albumin Znxfx-1-Hquzzwwwp Helsb-3-Wvdlmcyxc Gamma Globulins PEP Interpretation HDL Cholesterol TSH Arterial Blood Glucose Arterial Blood Ionized Calcium Urine WBC (Auto) Urine Creatinine Urine Total Protein Crossmatch 04/27/21 04/27/21 04/27/21 06:23 07:43 08:30 WBC RBC Hgb Hct MCH RDW Plt Count Seg Neuts % (Manual) Lymphocytes % (Manual) Nucleated RBC % Seg Neutrophils # Man Lymphocytes # (Manual) PT ABG pH 7.309 L POC ABG pCO2 POC ABG pO2 70.6 L ABG pO2 ABG O2 Saturation ABG Base Excess ABG Hemoglobin 9.16 L ABG Oxyhemoglobin 92.4 L ABG Potassium ABG Chloride ABG Glucose Oxyhemoglobin Carboxyhemoglobin Sodium Potassium Chloride 110.1 H Carbon Dioxide 15 L BUN 109 H Creatinine 4.3 H Glucose 218 H POC Glucose 187 H Hemoglobin A1c Lactic Acid Calcium Phosphorus Magnesium Transferrin AST 53 H ALT Alkaline Phosphatase 148 H Total Creatine Kinase 1000 H CK-MB (CK-2) Serum Total Protein Total Protein 5.2 L Albumin 1.2 L Quvsg-0-Hhbhjhueo Pntir-7-Uccpahgzx Gamma Globulins PEP Interpretation HDL Cholesterol TSH Arterial Blood Glucose Arterial Blood Ionized Calcium Urine WBC (Auto) Urine Creatinine Urine Total Protein Crossmatch 04/27/21 04/27/21 04/27/21 11:54 21:08 23:28 WBC RBC Hgb Hct MCH RDW Plt Count Seg Neuts % (Manual) Lymphocytes % (Manual) Nucleated RBC % Seg Neutrophils # Man Lymphocytes # (Manual) PT ABG pH POC ABG pCO2 POC ABG pO2 ABG pO2 ABG O2 Saturation ABG Base Excess ABG Hemoglobin ABG Oxyhemoglobin ABG Potassium ABG Chloride ABG Glucose Oxyhemoglobin Carboxyhemoglobin Sodium Potassium Chloride Carbon Dioxide BUN Creatinine Glucose POC Glucose 147 H 136 H 201 H Hemoglobin A1c Lactic Acid Calcium Phosphorus Magnesium Transferrin AST ALT Alkaline Phosphatase Total Creatine Kinase CK-MB (CK-2) Serum Total Protein Total Protein Albumin Jpcgc-0-Dcoztyrhj Ttcfj-9-Hodqpnsly Gamma Globulins PEP Interpretation HDL Cholesterol TSH Arterial Blood Glucose Arterial Blood Ionized Calcium Urine WBC (Auto) Urine Creatinine Urine Total Protein Crossmatch 04/28/21 04/28/21 04/28/21 04:00 04:00 05:00 WBC 12.6 H RBC 3.59 L Hgb 9.4 L Hct MCH 26 L RDW 16.6 H Plt Count 111 L Seg Neuts % (Manual) Lymphocytes % (Manual) 1.0 L Nucleated RBC % 4.0 H Seg Neutrophils # Man 11.6 H Lymphocytes # (Manual) 0.1 L PT 15.3 H ABG pH POC ABG pCO2 POC ABG pO2 ABG pO2 ABG O2 Saturation ABG Base Excess ABG Hemoglobin ABG Oxyhemoglobin ABG Potassium ABG Chloride ABG Glucose Oxyhemoglobin Carboxyhemoglobin Sodium 147 H Potassium 3.5 L D Chloride Carbon Dioxide BUN 79 H Creatinine 3.8 H Glucose 194 H POC Glucose Hemoglobin A1c Lactic Acid Calcium 8.1 L Phosphorus Magnesium Transferrin AST ALT Alkaline Phosphatase Total Creatine Kinase CK-MB (CK-2) Serum Total Protein Total Protein Albumin Jajyn-9-Mhqmplhyh Jymar-1-Apuplnqtg Gamma Globulins PEP Interpretation HDL Cholesterol TSH Arterial Blood Glucose Arterial Blood Ionized Calcium Urine WBC (Auto) Urine Creatinine Urine Total Protein Crossmatch 04/28/21 04/28/21 04/28/21 05:08 05:18 11:04 WBC RBC Hgb Hct MCH RDW Plt Count Seg Neuts % (Manual) Lymphocytes % (Manual) Nucleated RBC % Seg Neutrophils # Man Lymphocytes # (Manual) PT ABG pH POC ABG pCO2 POC ABG pO2 66.5 L ABG pO2 ABG O2 Saturation ABG Base Excess ABG Hemoglobin 9.7 L ABG Oxyhemoglobin 92.5 L ABG Potassium 3.2 L ABG Chloride ABG Glucose 200 H Oxyhemoglobin Carboxyhemoglobin Sodium Potassium Chloride Carbon Dioxide BUN Creatinine Glucose POC Glucose 183 H 174 H Hemoglobin A1c Lactic Acid Calcium Phosphorus Magnesium Transferrin AST ALT Alkaline Phosphatase Total Creatine Kinase CK-MB (CK-2) Serum Total Protein Total Protein Albumin Umayv-0-Atgkyuhbx Ujqar-7-Ntfgsafga Gamma Globulins PEP Interpretation HDL Cholesterol TSH Arterial Blood Glucose 200 H Arterial Blood Ionized Calcium 4.5 L Urine WBC (Auto) Urine Creatinine Urine Total Protein Crossmatch 04/28/21 04/28/21 04/28/21 17:16 21:14 23:41 WBC RBC Hgb Hct MCH RDW Plt Count Seg Neuts % (Manual) Lymphocytes % (Manual) Nucleated RBC % Seg Neutrophils # Man Lymphocytes # (Manual) PT ABG pH POC ABG pCO2 POC ABG pO2 ABG pO2 ABG O2 Saturation ABG Base Excess ABG Hemoglobin ABG Oxyhemoglobin ABG Potassium ABG Chloride ABG Glucose Oxyhemoglobin Carboxyhemoglobin Sodium Potassium Chloride Carbon Dioxide BUN Creatinine Glucose POC Glucose 135 H 134 H 171 H Hemoglobin A1c Lactic Acid Calcium Phosphorus Magnesium Transferrin AST ALT Alkaline Phosphatase Total Creatine Kinase CK-MB (CK-2) Serum Total Protein Total Protein Albumin Kwqva-3-Qwbxhrfyn Fotoc-4-Qzhjldwyn Gamma Globulins PEP Interpretation HDL Cholesterol TSH Arterial Blood Glucose Arterial Blood Ionized Calcium Urine WBC (Auto) Urine Creatinine Urine Total Protein Crossmatch 04/29/21 04/29/21 04/29/21 01:16 04:00 04:00 WBC 13.3 H RBC 3.12 L Hgb 8.3 L Hct 26.2 L MCH 27 L RDW 16.3 H Plt Count 132 L Seg Neuts % (Manual) Lymphocytes % (Manual) Nucleated RBC % Seg Neutrophils # Man Lymphocytes # (Manual) PT ABG pH POC ABG pCO2 POC ABG pO2 ABG pO2 ABG O2 Saturation ABG Base Excess ABG Hemoglobin ABG Oxyhemoglobin ABG Potassium ABG Chloride ABG Glucose Oxyhemoglobin Carboxyhemoglobin Sodium Potassium Chloride Carbon Dioxide BUN 63 H Creatinine 3.4 H Glucose 249 H POC Glucose 236 H Hemoglobin A1c Lactic Acid Calcium 8.2 L Phosphorus Magnesium Transferrin AST 61 H ALT 71 H Alkaline Phosphatase 170 H Total Creatine Kinase CK-MB (CK-2) Serum Total Protein Total Protein 5.1 L Albumin 1.6 L Ffrta-2-Duztouxwd Neipo-8-Huaotgmiv Gamma Globulins PEP Interpretation HDL Cholesterol TSH Arterial Blood Glucose Arterial Blood Ionized Calcium Urine WBC (Auto) Urine Creatinine Urine Total Protein Crossmatch 04/29/21 04/29/21 04/29/21 11:35 13:30 16:01 WBC RBC Hgb Hct MCH RDW Plt Count Seg Neuts % (Manual) Lymphocytes % (Manual) Nucleated RBC % Seg Neutrophils # Man Lymphocytes # (Manual) PT ABG pH POC ABG pCO2 POC ABG pO2 ABG pO2 ABG O2 Saturation ABG Base Excess ABG Hemoglobin ABG Oxyhemoglobin ABG Potassium ABG Chloride ABG Glucose Oxyhemoglobin Carboxyhemoglobin Sodium Potassium Chloride Carbon Dioxide BUN Creatinine Glucose POC Glucose 320 H 297 H Hemoglobin A1c Lactic Acid Calcium Phosphorus Magnesium Transferrin AST ALT Alkaline Phosphatase Total Creatine Kinase CK-MB (CK-2) Serum Total Protein Total Protein Albumin Xifam-6-Ssrjfslkf Nciib-2-Qseikvevg Gamma Globulins PEP Interpretation HDL Cholesterol TSH Arterial Blood Glucose Arterial Blood Ionized Calcium Urine WBC (Auto) > 182.0 H Urine Creatinine Urine Total Protein Crossmatch 04/29/21 04/29/21 04/30/21 21:58 23:35 04:00 WBC 11.4 H RBC 3.27 L Hgb 8.7 L Hct 27.5 L MCH 27 L RDW 16.6 H Plt Count Seg Neuts % (Manual) Lymphocytes % (Manual) Nucleated RBC % Seg Neutrophils # Man Lymphocytes # (Manual) PT ABG pH POC ABG pCO2 POC ABG pO2 ABG pO2 ABG O2 Saturation ABG Base Excess ABG Hemoglobin ABG Oxyhemoglobin ABG Potassium ABG Chloride ABG Glucose Oxyhemoglobin Carboxyhemoglobin Sodium Potassium Chloride Carbon Dioxide BUN Creatinine Glucose POC Glucose 260 H 254 H Hemoglobin A1c Lactic Acid Calcium Phosphorus Magnesium Transferrin AST ALT Alkaline Phosphatase Total Creatine Kinase CK-MB (CK-2) Serum Total Protein Total Protein Albumin Uiuml-3-Smytjyadn Fiavj-7-Ecleblaot Gamma Globulins PEP Interpretation HDL Cholesterol TSH Arterial Blood Glucose Arterial Blood Ionized Calcium Urine WBC (Auto) Urine Creatinine Urine Total Protein Crossmatch 04/30/21 04/30/21 04/30/21 04:00 05:17 05:31 WBC RBC Hgb Hct MCH RDW Plt Count Seg Neuts % (Manual) Lymphocytes % (Manual) Nucleated RBC % Seg Neutrophils # Man Lymphocytes # (Manual) PT ABG pH 7.452 H POC ABG pCO2 30.5 L POC ABG pO2 54.5 L ABG pO2 ABG O2 Saturation ABG Base Excess ABG Hemoglobin 10.1 L ABG Oxyhemoglobin 87.4 L ABG Potassium 2.9 L ABG Chloride ABG Glucose 305 H Oxyhemoglobin Carboxyhemoglobin Sodium Potassium 3.1 L Chloride Carbon Dioxide BUN 79 H Creatinine 3.9 H Glucose 275 H POC Glucose 267 H Hemoglobin A1c Lactic Acid Calcium Phosphorus 5.60 H D Magnesium Transferrin AST ALT Alkaline Phosphatase Total Creatine Kinase CK-MB (CK-2) Serum Total Protein Total Protein Albumin Gcgcx-0-Hmaaffnhr Jnomo-9-Tmbtmmzcj Gamma Globulins PEP Interpretation HDL Cholesterol TSH Arterial Blood Glucose 305 H Arterial Blood Ionized Calcium Urine WBC (Auto) Urine Creatinine Urine Total Protein Crossmatch 04/30/21 04/30/21 04/30/21 12:31 17:50 22:24 WBC RBC Hgb Hct MCH RDW Plt Count Seg Neuts % (Manual) Lymphocytes % (Manual) Nucleated RBC % Seg Neutrophils # Man Lymphocytes # (Manual) PT ABG pH POC ABG pCO2 POC ABG pO2 ABG pO2 ABG O2 Saturation ABG Base Excess ABG Hemoglobin ABG Oxyhemoglobin ABG Potassium ABG Chloride ABG Glucose Oxyhemoglobin Carboxyhemoglobin Sodium Potassium Chloride Carbon Dioxide BUN Creatinine Glucose POC Glucose 259 H 161 H 146 H Hemoglobin A1c Lactic Acid Calcium Phosphorus Magnesium Transferrin AST ALT Alkaline Phosphatase Total Creatine Kinase CK-MB (CK-2) Serum Total Protein Total Protein Albumin Yijgq-6-Voilvlmsa Xspzz-8-Dahmvccta Gamma Globulins PEP Interpretation HDL Cholesterol TSH Arterial Blood Glucose Arterial Blood Ionized Calcium Urine WBC (Auto) Urine Creatinine Urine Total Protein Crossmatch 05/01/21 05/01/21 05/01/21 00:09 03:30 04:00 WBC 12.0 H RBC 3.08 L Hgb 8.1 L Hct 25.6 L MCH 26 L RDW 16.3 H Plt Count Seg Neuts % (Manual) Lymphocytes % (Manual) Nucleated RBC % Seg Neutrophils # Man Lymphocytes # (Manual) PT ABG pH 7.493 H POC ABG pCO2 POC ABG pO2 ABG pO2 ABG O2 Saturation ABG Base Excess ABG Hemoglobin 9.3 L ABG Oxyhemoglobin ABG Potassium ABG Chloride ABG Glucose 167 H Oxyhemoglobin Carboxyhemoglobin 0.4 L Sodium Potassium Chloride Carbon Dioxide BUN Creatinine Glucose POC Glucose 149 H Hemoglobin A1c Lactic Acid Calcium Phosphorus Magnesium Transferrin AST ALT Alkaline Phosphatase Total Creatine Kinase CK-MB (CK-2) Serum Total Protein Total Protein Albumin Jprpx-5-Vhunohlcy Mvutk-1-Kkuplndaj Gamma Globulins PEP Interpretation HDL Cholesterol TSH Arterial Blood Glucose 167 H Arterial Blood Ionized Calcium Urine WBC (Auto) Urine Creatinine Urine Total Protein Crossmatch 05/01/21 05/01/21 05/01/21 04:00 05:48 11:49 WBC RBC Hgb Hct MCH RDW Plt Count Seg Neuts % (Manual) Lymphocytes % (Manual) Nucleated RBC % Seg Neutrophils # Man Lymphocytes # (Manual) PT ABG pH POC ABG pCO2 POC ABG pO2 ABG pO2 ABG O2 Saturation ABG Base Excess ABG Hemoglobin ABG Oxyhemoglobin ABG Potassium ABG Chloride ABG Glucose Oxyhemoglobin Carboxyhemoglobin Sodium Potassium 3.5 L Chloride Carbon Dioxide BUN 62 H Creatinine 3.3 H Glucose 179 H POC Glucose 197 H 167 H Hemoglobin A1c Lactic Acid Calcium 8.3 L Phosphorus Magnesium Transferrin AST ALT Alkaline Phosphatase Total Creatine Kinase CK-MB (CK-2) Serum Total Protein Total Protein Albumin Ksusw-8-Miovespyz Wtaqe-1-Mpbfpweom Gamma Globulins PEP Interpretation HDL Cholesterol TSH Arterial Blood Glucose Arterial Blood Ionized Calcium Urine WBC (Auto) Urine Creatinine Urine Total Protein Crossmatch 05/01/21 05/01/21 05/02/21 16:24 23:25 04:00 WBC 14.2 H RBC 2.61 L Hgb 6.9 L Hct 22.1 L MCH 27 L RDW 16.1 H Plt Count Seg Neuts % (Manual) Lymphocytes % (Manual) Nucleated RBC % Seg Neutrophils # Man Lymphocytes # (Manual) PT ABG pH POC ABG pCO2 POC ABG pO2 ABG pO2 ABG O2 Saturation ABG Base Excess ABG Hemoglobin ABG Oxyhemoglobin ABG Potassium ABG Chloride ABG Glucose Oxyhemoglobin Carboxyhemoglobin Sodium Potassium Chloride Carbon Dioxide BUN Creatinine Glucose POC Glucose 157 H 147 H Hemoglobin A1c Lactic Acid Calcium Phosphorus Magnesium Transferrin AST ALT Alkaline Phosphatase Total Creatine Kinase CK-MB (CK-2) Serum Total Protein Total Protein Albumin Ilbsv-4-Ohclbpwmd Ydcep-0-Upojmsozp Gamma Globulins PEP Interpretation HDL Cholesterol TSH Arterial Blood Glucose Arterial Blood Ionized Calcium Urine WBC (Auto) Urine Creatinine Urine Total Protein Crossmatch 05/02/21 05/02/21 05/02/21 04:00 04:34 05:23 WBC RBC Hgb Hct MCH RDW Plt Count Seg Neuts % (Manual) Lymphocytes % (Manual) Nucleated RBC % Seg Neutrophils # Man Lymphocytes # (Manual) PT ABG pH 7.487 H POC ABG pCO2 POC ABG pO2 78.6 L ABG pO2 ABG O2 Saturation ABG Base Excess ABG Hemoglobin 11.5 L ABG Oxyhemoglobin ABG Potassium ABG Chloride ABG Glucose 122 H Oxyhemoglobin Carboxyhemoglobin Sodium Potassium Chloride Carbon Dioxide BUN 49 H Creatinine 2.8 H Glucose 117 H POC Glucose 119 H Hemoglobin A1c Lactic Acid Calcium Phosphorus Magnesium Transferrin AST ALT Alkaline Phosphatase Total Creatine Kinase CK-MB (CK-2) Serum Total Protein Total Protein Albumin Ywuey-1-Uneyrrljs Chemt-9-Gjrjwsqpx Gamma Globulins PEP Interpretation HDL Cholesterol TSH Arterial Blood Glucose 122 H Arterial Blood Ionized Calcium Urine WBC (Auto) Urine Creatinine Urine Total Protein Crossmatch 05/02/21 05/02/21 05/02/21 12:00 12:04 17:29 WBC RBC Hgb Hct MCH RDW Plt Count Seg Neuts % (Manual) Lymphocytes % (Manual) Nucleated RBC % Seg Neutrophils # Man Lymphocytes # (Manual) PT ABG pH POC ABG pCO2 POC ABG pO2 ABG pO2 ABG O2 Saturation ABG Base Excess ABG Hemoglobin ABG Oxyhemoglobin ABG Potassium ABG Chloride ABG Glucose Oxyhemoglobin Carboxyhemoglobin Sodium Potassium Chloride Carbon Dioxide BUN Creatinine Glucose POC Glucose 115 H 120 H Hemoglobin A1c Lactic Acid Calcium Phosphorus Magnesium Transferrin AST ALT Alkaline Phosphatase Total Creatine Kinase CK-MB (CK-2) Serum Total Protein Total Protein Albumin Eruyk-0-Qedizjhru Meufk-5-Fvxnfikvw Gamma Globulins PEP Interpretation HDL Cholesterol TSH Arterial Blood Glucose Arterial Blood Ionized Calcium Urine WBC (Auto) Urine Creatinine Urine Total Protein Crossmatch See Detail 05/02/21 05/03/21 05/03/21 23:36 04:00 04:00 WBC 13.9 H RBC 3.22 L Hgb 8.7 L Hct 27.4 L MCH 27 L RDW 15.8 H Plt Count Seg Neuts % (Manual) Lymphocytes % (Manual) Nucleated RBC % Seg Neutrophils # Man Lymphocytes # (Manual) PT ABG pH POC ABG pCO2 POC ABG pO2 ABG pO2 ABG O2 Saturation ABG Base Excess ABG Hemoglobin ABG Oxyhemoglobin ABG Potassium ABG Chloride ABG Glucose Oxyhemoglobin Carboxyhemoglobin Sodium 146 H Potassium 3.5 L Chloride 107.5 H Carbon Dioxide BUN 40 H Creatinine 2.5 H Glucose 104 H POC Glucose 130 H Hemoglobin A1c Lactic Acid Calcium Phosphorus Magnesium Transferrin AST 53 H ALT Alkaline Phosphatase 149 H Total Creatine Kinase CK-MB (CK-2) Serum Total Protein Total Protein 5.2 L Albumin 1.5 L Ustiu-7-Xrmrjiels Pkjsw-3-Erbcmwtdj Gamma Globulins PEP Interpretation HDL Cholesterol TSH Arterial Blood Glucose Arterial Blood Ionized Calcium Urine WBC (Auto) Urine Creatinine Urine Total Protein Crossmatch 05/03/21 05/04/21 05/04/21 17:26 01:24 04:48 WBC 14.3 H RBC 3.14 L Hgb 8.5 L Hct 26.3 L MCH 27 L RDW 15.8 H Plt Count Seg Neuts % (Manual) Lymphocytes % (Manual) Nucleated RBC % Seg Neutrophils # Man Lymphocytes # (Manual) PT ABG pH POC ABG pCO2 POC ABG pO2 ABG pO2 ABG O2 Saturation ABG Base Excess ABG Hemoglobin ABG Oxyhemoglobin ABG Potassium ABG Chloride ABG Glucose Oxyhemoglobin Carboxyhemoglobin Sodium Potassium Chloride Carbon Dioxide BUN Creatinine Glucose POC Glucose 123 H 146 H Hemoglobin A1c Lactic Acid Calcium Phosphorus Magnesium Transferrin AST ALT Alkaline Phosphatase Total Creatine Kinase CK-MB (CK-2) Serum Total Protein Total Protein Albumin Bfohr-4-Yyaggswhf Mwyhn-9-Omyjzvkjx Gamma Globulins PEP Interpretation HDL Cholesterol TSH Arterial Blood Glucose Arterial Blood Ionized Calcium Urine WBC (Auto) Urine Creatinine Urine Total Protein Crossmatch 05/04/21 05/04/21 05/04/21 04:48 05:15 11:24 WBC RBC Hgb Hct MCH RDW Plt Count Seg Neuts % (Manual) Lymphocytes % (Manual) Nucleated RBC % Seg Neutrophils # Man Lymphocytes # (Manual) PT ABG pH POC ABG pCO2 POC ABG pO2 ABG pO2 ABG O2 Saturation ABG Base Excess ABG Hemoglobin ABG Oxyhemoglobin ABG Potassium ABG Chloride ABG Glucose Oxyhemoglobin Carboxyhemoglobin Sodium Potassium 3.5 L Chloride Carbon Dioxide BUN 58 H Creatinine 3.4 H Glucose 168 H POC Glucose 162 H 145 H Hemoglobin A1c Lactic Acid Calcium Phosphorus 5.30 H Magnesium Transferrin AST ALT Alkaline Phosphatase Total Creatine Kinase CK-MB (CK-2) Serum Total Protein Total Protein Albumin Dxdns-6-Kdnmvynrd Kecxn-4-Meqrocwnl Gamma Globulins PEP Interpretation HDL Cholesterol 24 L TSH Arterial Blood Glucose Arterial Blood Ionized Calcium Urine WBC (Auto) Urine Creatinine Urine Total Protein Crossmatch 05/04/21 05/04/21 05/05/21 16:01 23:32 04:00 WBC RBC Hgb Hct MCH RDW Plt Count Seg Neuts % (Manual) Lymphocytes % (Manual) Nucleated RBC % Seg Neutrophils # Man Lymphocytes # (Manual) PT ABG pH POC ABG pCO2 POC ABG pO2 ABG pO2 ABG O2 Saturation ABG Base Excess ABG Hemoglobin ABG Oxyhemoglobin ABG Potassium ABG Chloride ABG Glucose Oxyhemoglobin Carboxyhemoglobin Sodium Potassium 3.4 L Chloride Carbon Dioxide BUN 43 H Creatinine 2.7 H Glucose 124 H POC Glucose 148 H 134 H Hemoglobin A1c Lactic Acid Calcium 8.2 L Phosphorus Magnesium Transferrin AST ALT Alkaline Phosphatase Total Creatine Kinase CK-MB (CK-2) Serum Total Protein Total Protein Albumin Eyhfl-9-Iwqypctnl Bqpwq-6-Rtcqcaewl Gamma Globulins PEP Interpretation HDL Cholesterol TSH Arterial Blood Glucose Arterial Blood Ionized Calcium Urine WBC (Auto) Urine Creatinine Urine Total Protein Crossmatch 05/05/21 05/06/21 05/06/21 05:14 00:01 04:00 WBC RBC Hgb Hct MCH RDW Plt Count Seg Neuts % (Manual) Lymphocytes % (Manual) Nucleated RBC % Seg Neutrophils # Man Lymphocytes # (Manual) PT ABG pH POC ABG pCO2 POC ABG pO2 ABG pO2 ABG O2 Saturation ABG Base Excess ABG Hemoglobin ABG Oxyhemoglobin ABG Potassium ABG Chloride ABG Glucose Oxyhemoglobin Carboxyhemoglobin Sodium Potassium 3.2 L Chloride Carbon Dioxide BUN 56 H Creatinine 3.0 H Glucose 110 H POC Glucose 120 H 120 H Hemoglobin A1c Lactic Acid Calcium 7.8 L Phosphorus 4.60 H Magnesium Transferrin AST ALT Alkaline Phosphatase Total Creatine Kinase CK-MB (CK-2) Serum Total Protein Total Protein Albumin Wgtpl-5-Okxulkqnw Cmhvn-4-Rxfoblxfo Gamma Globulins PEP Interpretation HDL Cholesterol TSH Arterial Blood Glucose Arterial Blood Ionized Calcium Urine WBC (Auto) Urine Creatinine Urine Total Protein Crossmatch 05/06/21 05/06/21 05/06/21 04:27 05:15 17:37 WBC RBC 3.03 L Hgb 8.3 L Hct 25.4 L MCH 27 L RDW Plt Count Seg Neuts % (Manual) Lymphocytes % (Manual) Nucleated RBC % Seg Neutrophils # Man Lymphocytes # (Manual) PT ABG pH POC ABG pCO2 POC ABG pO2 ABG pO2 ABG O2 Saturation ABG Base Excess ABG Hemoglobin ABG Oxyhemoglobin ABG Potassium ABG Chloride ABG Glucose Oxyhemoglobin Carboxyhemoglobin Sodium Potassium Chloride Carbon Dioxide BUN Creatinine Glucose POC Glucose 137 H 132 H Hemoglobin A1c Lactic Acid Calcium Phosphorus Magnesium Transferrin AST ALT Alkaline Phosphatase Total Creatine Kinase CK-MB (CK-2) Serum Total Protein Total Protein Albumin Mivmh-8-Eylshmlia Umtmz-2-Safjxdexn Gamma Globulins PEP Interpretation HDL Cholesterol TSH Arterial Blood Glucose Arterial Blood Ionized Calcium Urine WBC (Auto) Urine Creatinine Urine Total Protein Crossmatch 05/07/21 05/07/21 05/07/21 00:30 04:23 04:23 WBC RBC Hgb Hct MCH RDW Plt Count Seg Neuts % (Manual) Lymphocytes % (Manual) Nucleated RBC % Seg Neutrophils # Man Lymphocytes # (Manual) PT ABG pH POC ABG pCO2 POC ABG pO2 ABG pO2 ABG O2 Saturation ABG Base Excess ABG Hemoglobin ABG Oxyhemoglobin ABG Potassium ABG Chloride ABG Glucose Oxyhemoglobin Carboxyhemoglobin Sodium Potassium 3.4 L Chloride 107.1 H Carbon Dioxide BUN 28 H Creatinine 1.9 H Glucose 165 H POC Glucose 121 H Hemoglobin A1c Lactic Acid Calcium 8.2 L Phosphorus Magnesium 1.60 L Transferrin AST ALT Alkaline Phosphatase Total Creatine Kinase CK-MB (CK-2) Serum Total Protein Total Protein Albumin Wrvtp-2-Ejvbdprhk Mpvwo-2-Kmvtjchrp Gamma Globulins PEP Interpretation HDL Cholesterol TSH Arterial Blood Glucose Arterial Blood Ionized Calcium Urine WBC (Auto) Urine Creatinine Urine Total Protein Crossmatch 05/07/21 05/07/21 05/07/21 05:30 11:37 17:28 WBC RBC Hgb Hct MCH RDW Plt Count Seg Neuts % (Manual) Lymphocytes % (Manual) Nucleated RBC % Seg Neutrophils # Man Lymphocytes # (Manual) PT ABG pH POC ABG pCO2 POC ABG pO2 ABG pO2 ABG O2 Saturation ABG Base Excess ABG Hemoglobin ABG Oxyhemoglobin ABG Potassium ABG Chloride ABG Glucose Oxyhemoglobin Carboxyhemoglobin Sodium Potassium Chloride Carbon Dioxide BUN Creatinine Glucose POC Glucose 205 H 148 H 170 H Hemoglobin A1c Lactic Acid Calcium Phosphorus Magnesium Transferrin AST ALT Alkaline Phosphatase Total Creatine Kinase CK-MB (CK-2) Serum Total Protein Total Protein Albumin Brcmw-5-Wlmzboxwk Unmej-7-Criislunt Gamma Globulins PEP Interpretation HDL Cholesterol TSH Arterial Blood Glucose Arterial Blood Ionized Calcium Urine WBC (Auto) Urine Creatinine Urine Total Protein Crossmatch 05/07/21 05/08/21 05/08/21 23:57 05:12 05:12 WBC 11.2 H RBC 3.01 L Hgb 8.2 L Hct 25.5 L MCH 27 L RDW 15.4 H Plt Count Seg Neuts % (Manual) Lymphocytes % (Manual) Nucleated RBC % Seg Neutrophils # Man Lymphocytes # (Manual) PT ABG pH POC ABG pCO2 POC ABG pO2 ABG pO2 ABG O2 Saturation ABG Base Excess ABG Hemoglobin ABG Oxyhemoglobin ABG Potassium ABG Chloride ABG Glucose Oxyhemoglobin Carboxyhemoglobin Sodium Potassium 3.4 L Chloride Carbon Dioxide BUN 37 H Creatinine 2.1 H Glucose 160 H POC Glucose 172 H Hemoglobin A1c Lactic Acid Calcium 8.3 L Phosphorus Magnesium Transferrin AST ALT Alkaline Phosphatase Total Creatine Kinase CK-MB (CK-2) Serum Total Protein Total Protein Albumin Uvaak-6-Pwmejlvgh Ywnkg-5-Qowyvrobc Gamma Globulins PEP Interpretation HDL Cholesterol TSH Arterial Blood Glucose Arterial Blood Ionized Calcium Urine WBC (Auto) Urine Creatinine Urine Total Protein Crossmatch 05/08/21 05/08/21 05/08/21 05:20 09:34 11:35 WBC RBC Hgb Hct MCH RDW Plt Count Seg Neuts % (Manual) Lymphocytes % (Manual) Nucleated RBC % Seg Neutrophils # Man Lymphocytes # (Manual) PT ABG pH POC ABG pCO2 POC ABG pO2 ABG pO2 ABG O2 Saturation ABG Base Excess ABG Hemoglobin ABG Oxyhemoglobin ABG Potassium ABG Chloride ABG Glucose Oxyhemoglobin Carboxyhemoglobin Sodium Potassium Chloride Carbon Dioxide BUN Creatinine Glucose POC Glucose 148 H 208 H Hemoglobin A1c Lactic Acid Calcium Phosphorus Magnesium Transferrin AST ALT Alkaline Phosphatase Total Creatine Kinase CK-MB (CK-2) Serum Total Protein Total Protein Albumin Iiwre-7-Jvkleuxfq Ndlsm-5-Lbjpzyxpl Gamma Globulins PEP Interpretation HDL Cholesterol TSH Arterial Blood Glucose Arterial Blood Ionized Calcium Urine WBC (Auto) Urine Creatinine 56.0 H Urine Total Protein Crossmatch 05/08/21 05/08/21 05/09/21 16:55 23:57 05:30 WBC 12.8 H RBC 2.98 L Hgb 8.1 L Hct 25.4 L MCH 27 L RDW 15.4 H Plt Count Seg Neuts % (Manual) Lymphocytes % (Manual) Nucleated RBC % Seg Neutrophils # Man Lymphocytes # (Manual) PT ABG pH POC ABG pCO2 POC ABG pO2 ABG pO2 ABG O2 Saturation ABG Base Excess ABG Hemoglobin ABG Oxyhemoglobin ABG Potassium ABG Chloride ABG Glucose Oxyhemoglobin Carboxyhemoglobin Sodium Potassium Chloride Carbon Dioxide BUN Creatinine Glucose POC Glucose 179 H 183 H Hemoglobin A1c Lactic Acid Calcium Phosphorus Magnesium Transferrin AST ALT Alkaline Phosphatase Total Creatine Kinase CK-MB (CK-2) Serum Total Protein Total Protein Albumin Mjdok-4-Fatzvbtuq Vtcvl-9-Fyxavojrp Gamma Globulins PEP Interpretation HDL Cholesterol TSH Arterial Blood Glucose Arterial Blood Ionized Calcium Urine WBC (Auto) Urine Creatinine Urine Total Protein Crossmatch 05/09/21 05/09/21 05/09/21 05:30 05:31 11:24 WBC RBC Hgb Hct MCH RDW Plt Count Seg Neuts % (Manual) Lymphocytes % (Manual) Nucleated RBC % Seg Neutrophils # Man Lymphocytes # (Manual) PT ABG pH POC ABG pCO2 POC ABG pO2 ABG pO2 ABG O2 Saturation ABG Base Excess ABG Hemoglobin ABG Oxyhemoglobin ABG Potassium ABG Chloride ABG Glucose Oxyhemoglobin Carboxyhemoglobin Sodium 150 H Potassium 3.2 L Chloride 110.2 H Carbon Dioxide BUN 37 H Creatinine 1.8 H Glucose 191 H POC Glucose 120 H 197 H Hemoglobin A1c Lactic Acid Calcium Phosphorus Magnesium Transferrin AST ALT Alkaline Phosphatase Total Creatine Kinase CK-MB (CK-2) Serum Total Protein Total Protein Albumin Alymt-9-Hpwaznnxo Ahovo-8-Enyjollpy Gamma Globulins PEP Interpretation HDL Cholesterol TSH Arterial Blood Glucose Arterial Blood Ionized Calcium Urine WBC (Auto) Urine Creatinine Urine Total Protein Crossmatch 05/09/21 05/09/21 05/10/21 15:49 23:42 05:00 WBC RBC 2.99 L Hgb 8.2 L Hct 25.6 L MCH RDW 15.4 H Plt Count 456 H Seg Neuts % (Manual) Lymphocytes % (Manual) Nucleated RBC % Seg Neutrophils # Man Lymphocytes # (Manual) PT ABG pH POC ABG pCO2 POC ABG pO2 ABG pO2 ABG O2 Saturation ABG Base Excess ABG Hemoglobin ABG Oxyhemoglobin ABG Potassium ABG Chloride ABG Glucose Oxyhemoglobin Carboxyhemoglobin Sodium Potassium Chloride Carbon Dioxide BUN Creatinine Glucose POC Glucose 318 H 152 H Hemoglobin A1c Lactic Acid Calcium Phosphorus Magnesium Transferrin AST ALT Alkaline Phosphatase Total Creatine Kinase CK-MB (CK-2) Serum Total Protein Total Protein Albumin Yfntr-9-Vgccryixe Ioanp-1-Ycrncvhuv Gamma Globulins PEP Interpretation HDL Cholesterol TSH Arterial Blood Glucose Arterial Blood Ionized Calcium Urine WBC (Auto) Urine Creatinine Urine Total Protein Crossmatch 05/10/21 05/10/21 05/10/21 05:00 05:30 12:08 WBC RBC Hgb Hct MCH RDW Plt Count Seg Neuts % (Manual) Lymphocytes % (Manual) Nucleated RBC % Seg Neutrophils # Man Lymphocytes # (Manual) PT ABG pH POC ABG pCO2 POC ABG pO2 ABG pO2 ABG O2 Saturation ABG Base Excess ABG Hemoglobin ABG Oxyhemoglobin ABG Potassium ABG Chloride ABG Glucose Oxyhemoglobin Carboxyhemoglobin Sodium 148 H Potassium 3.4 L Chloride 110.5 H Carbon Dioxide BUN 36 H Creatinine 1.6 H Glucose 185 H POC Glucose 168 H 193 H Hemoglobin A1c Lactic Acid Calcium Phosphorus Magnesium Transferrin AST ALT Alkaline Phosphatase Total Creatine Kinase CK-MB (CK-2) Serum Total Protein Total Protein Albumin Axoga-9-Fibemtozd Zraqu-2-Gxidzqiit Gamma Globulins PEP Interpretation HDL Cholesterol TSH Arterial Blood Glucose Arterial Blood Ionized Calcium Urine WBC (Auto) Urine Creatinine Urine Total Protein Crossmatch 05/10/21 05/10/21 05/11/21 18:02 23:25 05:40 WBC RBC 3.11 L Hgb 8.3 L Hct 26.6 L MCH 27 L RDW 15.7 H Plt Count 489 H Seg Neuts % (Manual) Lymphocytes % (Manual) Nucleated RBC % Seg Neutrophils # Man Lymphocytes # (Manual) PT ABG pH POC ABG pCO2 POC ABG pO2 ABG pO2 ABG O2 Saturation ABG Base Excess ABG Hemoglobin ABG Oxyhemoglobin ABG Potassium ABG Chloride ABG Glucose Oxyhemoglobin Carboxyhemoglobin Sodium Potassium Chloride Carbon Dioxide BUN Creatinine Glucose POC Glucose 205 H 171 H Hemoglobin A1c Lactic Acid Calcium Phosphorus Magnesium Transferrin AST ALT Alkaline Phosphatase Total Creatine Kinase CK-MB (CK-2) Serum Total Protein Total Protein Albumin Trxih-0-Qcubarsju Nzyxw-0-Okjpqbmnh Gamma Globulins PEP Interpretation HDL Cholesterol TSH Arterial Blood Glucose Arterial Blood Ionized Calcium Urine WBC (Auto) Urine Creatinine Urine Total Protein Crossmatch 05/11/21 05/11/21 05/11/21 05:40 11:45 18:23 WBC RBC Hgb Hct MCH RDW Plt Count Seg Neuts % (Manual) Lymphocytes % (Manual) Nucleated RBC % Seg Neutrophils # Man Lymphocytes # (Manual) PT ABG pH POC ABG pCO2 POC ABG pO2 ABG pO2 ABG O2 Saturation ABG Base Excess ABG Hemoglobin ABG Oxyhemoglobin ABG Potassium ABG Chloride ABG Glucose Oxyhemoglobin Carboxyhemoglobin Sodium 149 H Potassium Chloride 112.0 H Carbon Dioxide BUN 36 H Creatinine 1.4 H Glucose 164 H POC Glucose 176 H 203 H Hemoglobin A1c Lactic Acid Calcium Phosphorus Magnesium Transferrin AST ALT Alkaline Phosphatase Total Creatine Kinase CK-MB (CK-2) Serum Total Protein Total Protein Albumin Oqztk-8-Xsapmpwea Rbtnv-6-Kvjdbgaue Gamma Globulins PEP Interpretation HDL Cholesterol TSH Arterial Blood Glucose Arterial Blood Ionized Calcium Urine WBC (Auto) Urine Creatinine Urine Total Protein Crossmatch 05/12/21 05/12/21 05/12/21 00:30 04:10 04:10 WBC RBC 3.13 L Hgb 8.4 L Hct 26.6 L MCH 27 L RDW 15.7 H Plt Count 496 H Seg Neuts % (Manual) Lymphocytes % (Manual) Nucleated RBC % Seg Neutrophils # Man Lymphocytes # (Manual) PT ABG pH POC ABG pCO2 POC ABG pO2 ABG pO2 ABG O2 Saturation ABG Base Excess ABG Hemoglobin ABG Oxyhemoglobin ABG Potassium ABG Chloride ABG Glucose Oxyhemoglobin Carboxyhemoglobin Sodium Potassium Chloride Carbon Dioxide BUN 36 H Creatinine 1.3 H Glucose 182 H POC Glucose 161 H Hemoglobin A1c Lactic Acid Calcium 8.3 L Phosphorus Magnesium Transferrin AST ALT Alkaline Phosphatase Total Creatine Kinase CK-MB (CK-2) Serum Total Protein Total Protein Albumin Dkodr-7-Yepnnfskl Dpzey-3-Wbrhdwrqy Gamma Globulins PEP Interpretation HDL Cholesterol TSH Arterial Blood Glucose Arterial Blood Ionized Calcium Urine WBC (Auto) Urine Creatinine Urine Total Protein Crossmatch 05/12/21 05/12/21 05/12/21 05:24 11:50 17:45 WBC RBC Hgb Hct MCH RDW Plt Count Seg Neuts % (Manual) Lymphocytes % (Manual) Nucleated RBC % Seg Neutrophils # Man Lymphocytes # (Manual) PT ABG pH POC ABG pCO2 POC ABG pO2 ABG pO2 ABG O2 Saturation ABG Base Excess ABG Hemoglobin ABG Oxyhemoglobin ABG Potassium ABG Chloride ABG Glucose Oxyhemoglobin Carboxyhemoglobin Sodium Potassium Chloride Carbon Dioxide BUN Creatinine Glucose POC Glucose 177 H 180 H 187 H Hemoglobin A1c Lactic Acid Calcium Phosphorus Magnesium Transferrin AST ALT Alkaline Phosphatase Total Creatine Kinase CK-MB (CK-2) Serum Total Protein Total Protein Albumin Tfukn-1-Eryawxedl Cyktn-1-Ggxrwwtmi Gamma Globulins PEP Interpretation HDL Cholesterol TSH Arterial Blood Glucose Arterial Blood Ionized Calcium Urine WBC (Auto) Urine Creatinine Urine Total Protein Crossmatch 05/12/21 05/13/21 05/13/21 23:20 04:24 04:24 WBC RBC 3.10 L Hgb 8.5 L Hct 26.3 L MCH RDW 15.6 H Plt Count 503 H Seg Neuts % (Manual) Lymphocytes % (Manual) Nucleated RBC % Seg Neutrophils # Man Lymphocytes # (Manual) PT ABG pH POC ABG pCO2 POC ABG pO2 ABG pO2 ABG O2 Saturation ABG Base Excess ABG Hemoglobin ABG Oxyhemoglobin ABG Potassium ABG Chloride ABG Glucose Oxyhemoglobin Carboxyhemoglobin Sodium Potassium Chloride Carbon Dioxide BUN 30 H Creatinine Glucose 138 H POC Glucose 142 H Hemoglobin A1c Lactic Acid Calcium 8.3 L Phosphorus Magnesium 1.60 L Transferrin AST ALT Alkaline Phosphatase Total Creatine Kinase CK-MB (CK-2) Serum Total Protein Total Protein Albumin Ycjkx-3-Padxywlzn Ooalu-3-Jupkhjzwg Gamma Globulins PEP Interpretation HDL Cholesterol TSH Arterial Blood Glucose Arterial Blood Ionized Calcium Urine WBC (Auto) Urine Creatinine Urine Total Protein Crossmatch 05/13/21 05/13/21 05/13/21 05:29 11:44 16:52 WBC RBC Hgb Hct MCH RDW Plt Count Seg Neuts % (Manual) Lymphocytes % (Manual) Nucleated RBC % Seg Neutrophils # Man Lymphocytes # (Manual) PT ABG pH POC ABG pCO2 POC ABG pO2 ABG pO2 ABG O2 Saturation ABG Base Excess ABG Hemoglobin ABG Oxyhemoglobin ABG Potassium ABG Chloride ABG Glucose Oxyhemoglobin Carboxyhemoglobin Sodium Potassium Chloride Carbon Dioxide BUN Creatinine Glucose POC Glucose 128 H 148 H 160 H Hemoglobin A1c Lactic Acid Calcium Phosphorus Magnesium Transferrin AST ALT Alkaline Phosphatase Total Creatine Kinase CK-MB (CK-2) Serum Total Protein Total Protein Albumin Qusfj-1-Sgewrdnmh Cyuch-5-Yzjyiyhbu Gamma Globulins PEP Interpretation HDL Cholesterol TSH Arterial Blood Glucose Arterial Blood Ionized Calcium Urine WBC (Auto) Urine Creatinine Urine Total Protein Crossmatch 05/13/21 05/14/21 05/14/21 23:25 04:43 04:43 WBC RBC 3.02 L Hgb 8.3 L Hct 25.6 L MCH RDW 15.5 H Plt Count 482 H Seg Neuts % (Manual) Lymphocytes % (Manual) Nucleated RBC % Seg Neutrophils # Man Lymphocytes # (Manual) PT ABG pH POC ABG pCO2 POC ABG pO2 ABG pO2 ABG O2 Saturation ABG Base Excess ABG Hemoglobin ABG Oxyhemoglobin ABG Potassium ABG Chloride ABG Glucose Oxyhemoglobin Carboxyhemoglobin Sodium Potassium Chloride Carbon Dioxide BUN 29 H Creatinine Glucose 192 H POC Glucose 167 H Hemoglobin A1c Lactic Acid Calcium 8.1 L Phosphorus Magnesium Transferrin AST ALT Alkaline Phosphatase Total Creatine Kinase CK-MB (CK-2) Serum Total Protein Total Protein Albumin Dmuci-7-Gazipjqfv Nijty-3-Lkoqjvhyp Gamma Globulins PEP Interpretation HDL Cholesterol TSH Arterial Blood Glucose Arterial Blood Ionized Calcium Urine WBC (Auto) Urine Creatinine Urine Total Protein Crossmatch 05/14/21 05/14/21 05/14/21 05:37 10:57 10:59 WBC RBC Hgb Hct MCH RDW Plt Count Seg Neuts % (Manual) Lymphocytes % (Manual) Nucleated RBC % Seg Neutrophils # Man Lymphocytes # (Manual) PT ABG pH POC ABG pCO2 POC ABG pO2 ABG pO2 ABG O2 Saturation ABG Base Excess ABG Hemoglobin ABG Oxyhemoglobin ABG Potassium ABG Chloride ABG Glucose Oxyhemoglobin Carboxyhemoglobin Sodium Potassium Chloride Carbon Dioxide BUN Creatinine Glucose POC Glucose 190 H 215 H Hemoglobin A1c Lactic Acid Calcium Phosphorus Magnesium Transferrin AST ALT Alkaline Phosphatase Total Creatine Kinase CK-MB (CK-2) Serum Total Protein Total Protein Albumin Lhztx-4-Syusdopdu Ebuwk-2-Grngoxghk Gamma Globulins PEP Interpretation HDL Cholesterol TSH Arterial Blood Glucose Arterial Blood Ionized Calcium Urine WBC (Auto) 8.0 H Urine Creatinine Urine Total Protein Crossmatch 05/14/21 05/14/21 05/15/21 18:06 23:41 04:09 WBC 11.5 H RBC 2.80 L Hgb 7.7 L Hct 23.6 L MCH RDW 15.3 H Plt Count Seg Neuts % (Manual) Lymphocytes % (Manual) Nucleated RBC % Seg Neutrophils # Man Lymphocytes # (Manual) PT ABG pH POC ABG pCO2 POC ABG pO2 ABG pO2 ABG O2 Saturation ABG Base Excess ABG Hemoglobin ABG Oxyhemoglobin ABG Potassium ABG Chloride ABG Glucose Oxyhemoglobin Carboxyhemoglobin Sodium Potassium Chloride Carbon Dioxide BUN Creatinine Glucose POC Glucose 166 H 189 H Hemoglobin A1c Lactic Acid Calcium Phosphorus Magnesium Transferrin AST ALT Alkaline Phosphatase Total Creatine Kinase CK-MB (CK-2) Serum Total Protein Total Protein Albumin Ivzmz-0-Zanrukfmp Msbjq-7-Ojoyyizwz Gamma Globulins PEP Interpretation HDL Cholesterol TSH Arterial Blood Glucose Arterial Blood Ionized Calcium Urine WBC (Auto) Urine Creatinine Urine Total Protein Crossmatch 05/15/21 05/15/21 05/15/21 04:09 05:51 11:33 WBC RBC Hgb Hct MCH RDW Plt Count Seg Neuts % (Manual) Lymphocytes % (Manual) Nucleated RBC % Seg Neutrophils # Man Lymphocytes # (Manual) PT ABG pH POC ABG pCO2 POC ABG pO2 ABG pO2 ABG O2 Saturation ABG Base Excess ABG Hemoglobin ABG Oxyhemoglobin ABG Potassium ABG Chloride ABG Glucose Oxyhemoglobin Carboxyhemoglobin Sodium Potassium Chloride Carbon Dioxide BUN 22 H Creatinine Glucose 148 H POC Glucose 161 H 163 H Hemoglobin A1c Lactic Acid Calcium 8.2 L Phosphorus 2.00 L D Magnesium Transferrin AST ALT Alkaline Phosphatase Total Creatine Kinase CK-MB (CK-2) Serum Total Protein Total Protein Albumin Aevwz-7-Ckjommruh Huxhv-9-Qeterrdrb Gamma Globulins PEP Interpretation HDL Cholesterol TSH Arterial Blood Glucose Arterial Blood Ionized Calcium Urine WBC (Auto) Urine Creatinine Urine Total Protein Crossmatch 05/15/21 05/16/21 05/16/21 23:58 04:24 04:24 WBC 13.0 H RBC 2.79 L Hgb 7.6 L Hct 23.7 L MCH 27 L RDW 15.9 H Plt Count Seg Neuts % (Manual) Lymphocytes % (Manual) Nucleated RBC % Seg Neutrophils # Man Lymphocytes # (Manual) PT ABG pH POC ABG pCO2 POC ABG pO2 ABG pO2 ABG O2 Saturation ABG Base Excess ABG Hemoglobin ABG Oxyhemoglobin ABG Potassium ABG Chloride ABG Glucose Oxyhemoglobin Carboxyhemoglobin Sodium Potassium 3.5 L Chloride 107.9 H Carbon Dioxide BUN 20 H Creatinine Glucose 157 H POC Glucose 141 H Hemoglobin A1c Lactic Acid Calcium 8.3 L Phosphorus Magnesium Transferrin AST ALT Alkaline Phosphatase Total Creatine Kinase CK-MB (CK-2) Serum Total Protein Total Protein Albumin Pvqsa-5-Astudklli Pqbsc-5-Nodwnqmim Gamma Globulins PEP Interpretation HDL Cholesterol TSH Arterial Blood Glucose Arterial Blood Ionized Calcium Urine WBC (Auto) Urine Creatinine Urine Total Protein Crossmatch 05/16/21 05/16/21 05/16/21 05:24 11:58 18:06 WBC RBC Hgb Hct MCH RDW Plt Count Seg Neuts % (Manual) Lymphocytes % (Manual) Nucleated RBC % Seg Neutrophils # Man Lymphocytes # (Manual) PT ABG pH POC ABG pCO2 POC ABG pO2 ABG pO2 ABG O2 Saturation ABG Base Excess ABG Hemoglobin ABG Oxyhemoglobin ABG Potassium ABG Chloride ABG Glucose Oxyhemoglobin Carboxyhemoglobin Sodium Potassium Chloride Carbon Dioxide BUN Creatinine Glucose POC Glucose 157 H 137 H 134 H Hemoglobin A1c Lactic Acid Calcium Phosphorus Magnesium Transferrin AST ALT Alkaline Phosphatase Total Creatine Kinase CK-MB (CK-2) Serum Total Protein Total Protein Albumin Knvta-0-Vndqkeeyn Lykqg-5-Vhoyrwvzv Gamma Globulins PEP Interpretation HDL Cholesterol TSH Arterial Blood Glucose Arterial Blood Ionized Calcium Urine WBC (Auto) Urine Creatinine Urine Total Protein Crossmatch 05/17/21 05/17/21 05/17/21 00:26 04:14 04:14 WBC 11.9 H RBC 2.91 L Hgb 7.4 L Hct 24.6 L MCH 25 L RDW 15.4 H Plt Count Seg Neuts % (Manual) Lymphocytes % (Manual) Nucleated RBC % Seg Neutrophils # Man Lymphocytes # (Manual) PT 15.4 H ABG pH POC ABG pCO2 POC ABG pO2 ABG pO2 ABG O2 Saturation ABG Base Excess ABG Hemoglobin ABG Oxyhemoglobin ABG Potassium ABG Chloride ABG Glucose Oxyhemoglobin Carboxyhemoglobin Sodium Potassium Chloride Carbon Dioxide BUN Creatinine Glucose POC Glucose 121 H Hemoglobin A1c Lactic Acid Calcium Phosphorus Magnesium Transferrin AST ALT Alkaline Phosphatase Total Creatine Kinase CK-MB (CK-2) Serum Total Protein Total Protein Albumin Eoqda-1-Iqkrrnufj Lpxhl-1-Gjqakclxm Gamma Globulins PEP Interpretation HDL Cholesterol TSH Arterial Blood Glucose Arterial Blood Ionized Calcium Urine WBC (Auto) Urine Creatinine Urine Total Protein Crossmatch 05/17/21 05/17/21 04:14 05:19 WBC RBC Hgb Hct MCH RDW Plt Count Seg Neuts % (Manual) Lymphocytes % (Manual) Nucleated RBC % Seg Neutrophils # Man Lymphocytes # (Manual) PT ABG pH POC ABG pCO2 POC ABG pO2 ABG pO2 ABG O2 Saturation ABG Base Excess ABG Hemoglobin ABG Oxyhemoglobin ABG Potassium ABG Chloride ABG Glucose Oxyhemoglobin Carboxyhemoglobin Sodium Potassium Chloride 111.3 H Carbon Dioxide BUN 18 H Creatinine Glucose 129 H POC Glucose 117 H Hemoglobin A1c Lactic Acid Calcium Phosphorus Magnesium Transferrin AST ALT Alkaline Phosphatase Total Creatine Kinase CK-MB (CK-2) Serum Total Protein Total Protein Albumin Rtrrf-2-Epiadniip Dpdeh-9-Elmfnlckk Gamma Globulins PEP Interpretation HDL Cholesterol TSH Arterial Blood Glucose Arterial Blood Ionized Calcium Urine WBC (Auto) Urine Creatinine Urine Total Protein Crossmatch
[2021-05-17] MEDS: FAMOTIDINE 10 MG TAB FEEDTUBE SCH ×2 (10:18→21:29)
[2021-05-17] MEDS: ASPIRIN 81 MG TAB CHEW FEEDTUBE SCH (10:18)
[2021-05-17] MEDS: HEPARIN 5,000 UNIT/1 ML VIAL SUB-Q SCH ×2 (10:19→21:29)
[2021-05-17] MEDS: amLODIPine 5 MG TAB FEEDTUBE SCH (10:19)
[2021-05-17] MEDS: SENNOSIDES/DOCUSATE SODIUM 8.6/50 MG TAB FEEDTUBE SCH ×2 (10:20→21:29)
[2021-05-17] MEDS: LORazepam 2 MG/ML VIAL IV PRN ×2 (18:37→23:55)
--- NOTE | 2021-05-17 18:42 | Progress Note ---
Assessment and Plan Assessment and plan: This is a 80-year-old female fpc resident with GERD, hypothyroidism, hyperlipidemia, schizophrenia and dementia admitted with hypothermia, hyponatremia, hypokalemia, lactic acidosis, acute kidney injury, rhabdomyolysis and hyperosmolar nonketotic state. Acute CVA, acute metabolic encephalopathy, normal pressure hydrocephalus -CT head shows lateral ventricles and third ventricle dilation, raises possibility of normal pressure hydrocephalus -Neurology and neurosurgery consulted, appreciate recommendations -neurosurgery has no acute interventions -04/29 s/p spinal tap removal 24 mL, mental is unchanged -csf fluid showed {14 wbc,324 rbc,normal protein and glucose ,c/s is unremarkable so far} -MRI brain is remarkable for multiple ischemic event cortical as well as subcortical in both hemisphere and in all distribuation with slight petechial hemorrhage is noted findings is suggestive of possible embolic event with water shed infarct can not be totally excluded. -MRA/MRV completed-see chart for details - source of emboli not found -LINCOLN not successful -ASA 81 and lipitor -LDL noted -PT/ST/OT consulted -Aspiration/seizure precautions -Maintain sleep-wake cycle -Avoid delirium -Correct electrolyte derangements -Hold off on restarting home antipsychotic medications when obtained -Risperidone 3 mg, Donepazil 5 mg Acute hypoxic respiratory failure -s/p Bipap and ventimask -s/p bronchoscopy on 04/26 and trached 05/13 -Intubated 04/26 with 7.5 oett at 22 lips -Am vent settings: AC rate 14, tidal volume 450, PEEP 6, FiO2 30% -see RT notes for titration -PSV as tolerated -s/p racimec epi x2 04/22 and 04/23 preintubation -SPO2 monitoring -VAP bundle Acute kidney injury likely secondary to vasomotor nephropathy, urinary retention, Hypokalemia, hypo magnesium Pay[place], hyperphosphatemia -FeNA 0.50 indicating prerenal sate -Nephrology consulted, appreciate recommendations -HD initiated 04/27 and DC 05/13 -Luther catheter placed for strict intake and output; changed 05/02 -d/c to purwick -Avoid nephrotoxic medications -Trend BMP, CK -Renally dose medications -renal US WNL per read Sepsis likely 2/2 UTI and PNA -ID consulted, appreciate recommendations -COVID-19 PCR negative -04/26/2021 sputum culture: Roselyn nonalbicans -04/29/2021 UA showed significant pyuria. -UC Roselyn-> fluconazole -Lumbar puncture with CSF showing 14 WBC, 324 RBC, glucose 161, protein 51. 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 The aggregate critical care time was [60] minutes. This time is in addition to time spent performing reported procedures but includes the following: [x] Data Review and interpretation [x] Patient assessment and monitoring of vital signs [x] Documentation [x] Medication orders and management History Interval history: This is a 80-year-old female who was fpc resident at [facility] with GERD, hypothyroidism, hyperlipidemia, schizophrenia and dementia presented to the emergency department on 04/20 after being found unresponsive by the staff via EMS. Per EMS glucose levels read as high. Work-up in the emergency department revealed severe hypernatremia, leukocytosis, metabolic acidosis, hyp erchloremia, elevated BUN/creatinine, lactic acidosis and hyperglycemia. Patient was also hypothermic on admit. CT head showed findings suggestive of the possibility of normal pressure hydrocephalus. Patient was admitted to the hospitalist service with acute metabolic encephalopathy, diabetic hyperosmolar nonketotic state, acute kidney injury, hypernatremia, rhabdomyolysis and leukocytosis with consults to nephrology and [facility]. 04/21: Given 1 L LR bolus per nephrology and D5W increased to 125 mL's per hour, COVID-19 PCR pending, CXR and ABG ordered as patient was weaned from BiPAP to 3 L nasal cannula however was uptitrated back to nonrebreather. Will obtain blood cultures x2 given her leukocytosis and hypothermia. Replace potassium. Neurosurgery and neurology consulted and Luther catheter placed. 04/22: Improvement to sodium noted, slight hypokalemia which will be repleted, slight improvement to renal function, LFTs and rhabdomyolysis. Seen by neurosurgery today. Patient still making urine. transition to ssi and start TF as AG 15 04/23/2021: Given racemic epinephrine again due to stridor, continue IV fluids per nephrology, continue to trend sodium and BMP. 04/24/2021: 70/30 increased d/t hyperglycemia but recent BMP showed BG>300, gave additional 5 units IV insulin and ordered 5 units TID scheduled. However after IV insulin her PCOT was 400. Start on insulin gtt for hyperglycemia. Per RN she was not of IV D5 overnight d/t having one IV which was needed for emergency. Day RN did start dextrose. Remains with hyperglycemia. 04/25: Patient obtunded, withdrawal to pain only, on 50%Venti mask SPO2 abobe 92%. Plan to transition to SubQ insulin. Patient with mild hypernatremia this am, FWF added, will stop IVF for now. 04/26: Patient s/p intubation this am. Mentation is unchanged, plan for MRI brain today per NeuroSurg. Still hyperglycemic, hypernatremia improved, D5W D/katlyn, and basal insulin adjusted. 04/27: Bronch overnight. CXR with mild improvement. D/w Nephro plan for HD today, RIJ VasCath inserted. MRI on hold per [facility] patient is too unstable at this time, plan for possible spinal drained tomorrow to see if mentation will improve. 04/28: Tolerated HD overnight, only UF. Mentation remains the same. D/w [facility] plan for possible large volume spinal tap under fluoroscopy today. Plan for possible HD again today. Continue FWF for elevated Na. 04/29: MARY overnight. Plan for spinal tap this am. febrile overnight with leukocytosis, remains on pressors and more tachycardic now. Will panculture patient, and empiric IV was initiated. Remains hyperglycemic, basal insulin adjusted. 04/30: Patient's mentation remains unchanged post spinal tap. Plan for possible MRI brain next week. Afebrile overnight and leukocytosis improved, However, vent settings are going up and this am ABG with hypoxia, this am CXR with worsening opacities. Patient with 3+ pitting edema. Continue HD per Nephro. Continue current empiric IV abx, f/u on culture data, might need to get ID on board if worsen. 05/01: Mentation is unchanged, still on pressors. Febrile this am, continue IV abx, ID consulted. 3L out yesterday, plan for HD again tomorrow. Plt count improved, might need to restart AC, will D/w CCM. 05/02: No change in mentation and she is now noted to be decorticating to pain -> MRI brain ordered. Scheduled for HD today. ID consult completed. 05/03: Neurology consulted given MRI findings of multiple acute CVAs, LINCOLN ordered, EEG pending, started on aspirin and Lipitor. updated POA 05/04: Received hemodialysis today, will schedule for LINCOLN today however HD was ongoing at the time neurology will obtain MRA brain and neck then consider LINCOLN, increasing midodrine to aid in weaning Levophed. 05/05: MRA/MRV completed today, urine culture grew Roselyn and was started on fluconazole, LINCOLN tentatively scheduled for tomorrow. Resume tube feeding and n.p.o. at midnight. 05/06: Patient was scheduled for LINCOLN which was attempted however patient became hypotensive and the procedure was aborted. She received HD today. No acute events reported overnight. Tube feedings resumed. 05/07: No acute changes overnight. 05/08: May need permacath, goals of care to be discussed and will likely happen after neuro recommendations tomorrow since LINCOLN was unable to be completed. No acute events overnight. Replete mag, decreased midodrine. 05/09: MARY overnight. Patient remains unresponsive. No HD today per Nephro, low K repleted. D/w CCM plan for possible conference call with patient's POA tomorrow to further discuss plan of care and possible alternatives. 05/10: Mentation unchanged. Given patient multiple failed PST, plan for possible trach and PEG per CCM. General Surgery consulted. No plan for HD today, low K repleted. Proph AC resumed, plt is stable. 05/11: Na remains elevated, continue FWF. Mildly hypertensive, continue PRN Hydral for SBP> 170. Possible trach and Peg on sunday by Gen. Surgery. 05/12: Renal function continue to improve, no indication for any more HD, VasCath D/katlyn. Hypernatremia improved, D/C IVF continue FWF. Hypertensive overnight, Norvasc added and PRN labetalol for SBP greater than 170. NPO After midnight tonight for possible trach and PEG in the am by Gen surgery 05/13: MARY overnight. Plan for Trach and PEG today by Gen. Surgery. Per case management arrangement made for possible LTAC tomorrow. 05/14: s/p tracheostomy, no signs of any complications noted. Febrile this am with low BP and tachycardia, WBcs wnr. Orders placed X1L of IVF, UA, and blood culture. Awaiting PEGT placement by IR. D/C planning for LTAC possibly next week. 05/15: Remains stable on the vent. Mentation unchanged. Remains with low grade fevers, BP normalized post IVF. Awaiting PEGT placement by IR. Electrolytes repleted, repeat lab in the am 05/16: Patient will likely have PEG tube placed tomorrow with IR, potassium repleted, PSV today for approximately 1 hour and 30 minutes 05/17: No acute events reported overnight, PEG tube planned for by IR. Hopeful discharge to LTAC post PEG. Downtrending noted hemoglobin/hematocrit. Continue to monitor. Hospitalist Physical - Physical exam Narrative exam: General appearance: Present: no acute distress, other (Intubated) - EENT Eyes: Present: PERRL, EOM intact ENT: dentition normal - Neck Neck: Present: normal ROM - Respiratory Respiratory effort: normal Respiratory: bilateral: diminished - Cardiovascular Rhythm: regular Heart Sounds: Present: S1 & S2 - Extremities Extremities: no ischemia, pulses intact, pulses symmetrical, normal temperature, normal color Peripheral Pulses: within normal limits - Abdominal General gastrointestinal: soft, non-tender, non-distended, normal bowel sounds - Integumentary Integumentary: Present: warm, dry - Psychiatric Psychiatric: other - Neurologic Neurologic: other (Pupils equal round reactive, opens eyes and attempts to track but does not follow commands.) - Allied Health Allied health notes reviewed: nursing, RT, social work - Constitutional Vitals: Temp Pulse Resp BP Pulse Ox 98.4 F 96 H 14 182/153 100 05/17/21 16:00 05/17/21 18:37 05/17/21 17:00 05/17/21 18:37 05/17/21 17:32 General appearance: Present: no acute distress, other (Unresponsive) HEART Score - HEART Score Troponin: Troponin T 0.021 ng/mL (0.00-0.029) 04/20/21 17:10 Results - Labs CBC & Chem 7: 05/17/21 04:14 05/17/21 04:14 Labs: Laboratory Last Values WBC 11.9 K/mm3 (4.5-11.0) H 05/17/21 04:14 RBC 2.91 M/mm3 (3.65-5.03) L 05/17/21 04:14 Hgb 7.4 gm/dl (10.1-14.3) L 05/17/21 04:14 Hct 24.6 % (30.3-42.9) L 05/17/21 04:14 MCV 85 fl (79-97) 05/17/21 04:14 MCH 25 pg (28-32) L 05/17/21 04:14 MCHC 30 % (30-34) 05/17/21 04:14 RDW 15.4 % (13.2-15.2) H 05/17/21 04:14 Plt Count 403 K/mm3 (140-440) 05/17/21 04:14 Add Manual Diff Complete 04/28/21 04:00 Total Counted 100 04/28/21 04:00 Seg Neutrophils % [place] 04/28/21 04:00 Seg Neuts % (Manual) 77.0 % (40.0-70.0) H 04/26/21 09:33 Band Neutrophils % 2.0 % 04/28/21 04:00 Lymphocytes % (Manual) 1.0 % (13.4-35.0) L 04/28/21 04:00 Reactive Lymphs % (Man) 0 % 04/28/21 04:00 Monocytes % (Manual) 1.0 % (0.0-7.3) 04/28/21 04:00 Eosinophils % (Manual) 3.0 % (0.0-4.3) 04/28/21 04:00 Metamyelocytes % 1.0 % 04/28/21 04:00 Myelocytes % 0 % 04/28/21 04:00 Promyelocytes % 0 % 04/28/21 04:00 Blast Cells % 0 % 04/28/21 04:00 Nucleated RBC % 4.0 % (0.0-0.9) H 04/28/21 04:00 Seg Neutrophils # Man 11.6 K/mm3 (1.8-7.7) H 04/28/21 04:00 Band Neutrophils # 0.3 K/mm3 04/28/21 04:00 Lymphocytes # (Manual) 0.1 K/mm3 (1.2-5.4) L 04/28/21 04:00 Abs React Lymphs (Man) 0.0 K/mm3 04/28/21 04:00 Monocytes # (Manual) 0.1 K/mm3 (0.0-0.8) 04/28/21 04:00 Eosinophils # (Manual) 0.4 K/mm3 (0.0-0.4) 04/28/21 04:00 Basophils # (Manual) 0.0 K/mm3 (0.0-0.1) 04/28/21 04:00 Metamyelocytes # 0.1 K/mm3 04/28/21 04:00 Myelocytes # 0.0 K/mm3 04/28/21 04:00 Promyelocytes # 0.0 K/mm3 04/28/21 04:00 Blast Cells # 0.0 K/mm3 04/28/21 04:00 WBC Morphology Not Reportable 04/28/21 04:00 Hypersegmented Neuts Not Reportable 04/28/21 04:00 Hyposegmented Neuts Not Reportable 04/28/21 04:00 Hypogranular Neuts Not Reportable 04/28/21 04:00 Smudge Cells Not Reportable 04/28/21 04:00 Toxic Granulation Not Reportable 04/28/21 04:00 Toxic Vacuolation Not Reportable 04/28/21 04:00 Dohle Bodies Not Reportable 04/28/21 04:00 Pelger-Huet Anomaly Not Reportable 04/28/21 04:00 Moni Rods Not Reportable 04/28/21 04:00 Platelet Estimate Consistent w auto 04/28/21 04:00 Clumped Platelets Not Reportable 04/28/21 04:00 Plt Clumps, EDTA Not Reportable 04/28/21 04:00 Large Platelets Few 04/28/21 04:00 Giant Platelets Not Reportable 04/28/21 04:00 Platelet Satelliting Not Reportable 04/28/21 04:00 Plt Morphology Comment Not Reportable 04/28/21 04:00 RBC Morphology Not Reportable 04/28/21 04:00 Dimorphic RBCs Not Reportable 04/28/21 04:00 Polychromasia Not Reportable 04/28/21 04:00 Hypochromasia Not Reportable 04/28/21 04:00 Poikilocytosis Not Reportable 04/28/21 04:00 Anisocytosis Not Reportable 04/28/21 04:00 Microcytosis Not Reportable 04/28/21 04:00 Macrocytosis Not Reportable 04/28/21 04:00 Spherocytes Not Reportable 04/28/21 04:00 Pappenheimer Bodies Not Reportable 04/28/21 04:00 Sickle Cells Not Reportable 04/28/21 04:00 Target Cells 1+ 04/28/21 04:00 Tear Drop Cells Not Reportable 04/28/21 04:00 Ovalocytes Not Reportable 04/28/21 04:00 Helmet Cells Not Reportable 04/28/21 04:00 Parkinson-Hendron Bodies Not Reportable 04/28/21 04:00 [place] Rings Not Reportable 04/28/21 04:00 [place] Cells Not Reportable 04/28/21 04:00 Bite Cells Not Reportable 04/28/21 04:00 Crenated Cell Not Reportable 04/28/21 04:00 Elliptocytes Not Reportable 04/28/21 04:00 Acanthocytes (Spur) Not Reportable 04/28/21 04:00 Rouleaux Not Reportable 04/28/21 04:00 Hemoglobin C Crystals Not Reportable 04/28/21 04:00 Schistocytes Not Reportable 04/28/21 04:00 Malaria parasites Not Reportable 04/28/21 04:00 Herrera Bodies Not Reportable 04/28/21 04:00 Hem Pathologist Commnt No 04/28/21 04:00 PT 15.4 Sec. (12.2-14.9) H 05/17/21 04:14 INR 1.10 (0.87-1.13) 05/17/21 04:14 APTT 36.6 Sec. (24.2-36.6) 04/28/21 05:00 Heparin Anti-Xa, Unfract Negative (Negative) 04/24/21 17:29 ABG pH 7.487 (7.320-7.450) H 05/02/21 04:34 POC ABG pCO2 35.3 mmHg (32.0-48.0) 05/02/21 04:34 ABG pCO2 31.6 mm Hg 04/21/21 15:47 POC ABG pO2 78.6 mmHg (83-108) L 05/02/21 04:34 ABG pO2 168.1 mm Hg (80.0-90.0) H 04/21/21 15:47 POC ABG HCO3 26.1 05/02/21 04:34 ABG HCO3 23.3 mmol/L (20.0-26.0) 04/21/21 15:47 ABG O2 Saturation 96.0 (0-100) 05/02/21 04:34 ABG O2 Content 12.7 (0.0-44) 04/21/21 15:47 POC ABG Base Excess 2.9 05/02/21 04:34 ABG Base Excess 0.3 mmol/L (-2.0-3.0) 04/21/21 15:47 ABG Hemoglobin 11.5 (12.0-17.5) L 05/02/21 04:34 ABG Oxyhemoglobin 95.1 (94-98) 05/02/21 04:34 ABG Carboxyhemoglobin 1.0 % (0.0-5.0) 04/21/21 15:47 ABG Methemoglobin 0.3 (0.0-1.5) 05/02/21 04:34 ABG Sodium 138.6 mmol/L (136.0-145.0) 05/02/21 04:34 ABG Potassium 3.4 mmol/L (3.40-4.50) 05/02/21 04:34 ABG Chloride 105.0 mmol/L (98-107) 05/02/21 04:34 ABG Glucose 122 mg/dL (65-95) H 05/02/21 04:34 VBG pH 7.397 (7.320-7.420) 04/20/21 17:10 Oxyhemoglobin 97.5 % (95.0-99.0) 04/21/21 15:47 Carboxyhemoglobin 0.6 (0.5-1.5) 05/02/21 04:34 FiO2 100 % 04/21/21 15:47 FiO2 % 40.0 05/02/21 04:34 Sodium 145 mmol/L (137-145) 05/17/21 04:14 Potassium 4.2 mmol/L (3.6-5.0) 05/17/21 04:14 Chloride 111.3 mmol/L (98-107) H 05/17/21 04:14 Carbon Dioxide 22 mmol/L (22-30) 05/17/21 04:14 Anion Gap 16 mmol/L 05/17/21 04:14 BUN 18 mg/dL (7-17) H 05/17/21 04:14 Creatinine 0.9 mg/dL (0.6-1.2) 05/17/21 04:14 Estimated GFR > 60 ml/min 05/17/21 04:14 BUN/Creatinine Ratio 20 % 05/17/21 04:14 Glucose 129 mg/dL (65-100) H 05/17/21 04:14 POC Glucose 144 mg/dL (70-105) H 05/17/21 17:46 Hemoglobin A1c 17.1 % (4-6) H 04/22/21 15:55 Lactic Acid 1.90 mmol/L (0.7-2.0) 04/20/21 19:56 Calcium 8.5 mg/dL (8.4-10.2) 05/17/21 04:14 Phosphorus 3.20 mg/dL (2.5-4.5) 05/17/21 04:14 Magnesium 1.70 mg/dL (1.7-2.3) 05/17/21 04:14 Iron 62 ug/dL (37-170) 04/24/21 17:29 TIBC 285 mcg/dL (250-450) 04/24/21 17:29 % Saturation 21.75 % 04/24/21 17:29 Transferrin 112 mg/dl (192-382) L 04/24/21 17:29 Total Bilirubin 0.20 mg/dL (0.1-1.2) 05/03/21 04:00 Direct Bilirubin < 0.2 mg/dL (0-0.2) 04/29/21 04:00 Indirect Bilirubin 0.1 mg/dL 04/29/21 04:00 AST 53 units/L (5-40) H 05/03/21 04:00 ALT 55 units/L (7-56) 05/03/21 04:00 Alkaline Phosphatase 149 units/L (35-129) H 05/03/21 04:00 Ammonia 29.0 umol/L (25-60) 04/20/21 17:10 Total Creatine Kinase 1000 units/L (30-135) H 04/27/21 07:43 CK-MB (CK-2) 36.0 ng/mL (0.0-4.0) H 04/20/21 17:10 CK-MB (CK-2) Rel Index 0.9 (0-4) 04/20/21 17:10 Troponin T 0.021 ng/mL (0.00-0.029) 04/20/21 17:10 Serum Total Protein 5.5 g/dL (6.1-8.1) L 04/22/21 08:59 Total Protein 5.2 g/dL (6.3-8.2) L 05/03/21 04:00 Albumin 1.5 g/dL (3.9-5) L 05/03/21 04:00 Albumin/Globulin Ratio 0.4 % 05/03/21 04:00 Boied-3-Bajilggkx 0.6 g/dL (0.2-0.3) H 04/22/21 08:59 Tvupb-7-Meqmwqiqx 1.0 g/dL (0.5-0.9) H 04/22/21 08:59 Beta Globulins 0.3 g/dL (0.2-0.5) 04/22/21 08:59 Gamma Globulins 0.6 g/dL (0.8-1.7) L 04/22/21 08:59 Abnorm Protein Band 1 see below 04/22/21 08:59 PEP Interpretation see below H 04/22/21 08:59 Triglycerides 80 mg/dL (2-149) 05/04/21 04:48 Cholesterol 90 mg/dL (50-199) 05/04/21 04:48 LDL Cholesterol Direct 51 mg/dL (50-130) 05/04/21 04:48 HDL Cholesterol 24 mg/dL (40-59) L 05/04/21 04:48 Cholesterol/HDL Ratio 3.75 % 05/04/21 04:48 Serotonin Release Assay See scanned result 04/24/21 17:29 TSH 6.040 mlU/mL (0.270-4.200) H 04/20/21 17:10 Free T4 0.93 ng/dL (0.76-1.46) 04/20/21 17:10 Arterial Blood Glucose 122 mg/dL (65-95) H 05/02/21 04:34 Arterial Blood Ionized Calcium 4.5 mg/dL (4.6-5.3) L 04/28/21 05:18 Urine Color Yellow (Yellow) 05/14/21 10:57 Urine Turbidity Clear (Clear) 05/14/21 10:57 Urine pH 7.0 (5.0-7.0) 05/14/21 10:57 Ur Specific [place] 1.012 (1.003-1.030) 05/14/21 10:57 Urine Protein 30 mg/dl mg/dL (Negative) 05/14/21 10:57 Urine Glucose (UA) 150 mg/dL (Negative) 05/14/21 10:57 Urine Ketones Neg mg/dL (Negative) 05/14/21 10:57 Urine Blood Sm (Negative) 05/14/21 10:57 Urine Nitrite Neg (Negative) 05/14/21 10:57 Urine Bilirubin Neg (Negative) 05/14/21 10:57 Urine Urobilinogen < 2.0 mg/dL (<2.0) 05/14/21 10:57 Ur Leukocyte Esterase Tr (Negative) 05/14/21 10:57 Urine WBC (Auto) 8.0 /HPF (0.0-6.0) H 05/14/21 10:57 Urine RBC (Auto) 9.0 /HPF (0.0-6.0) 05/14/21 10:57 U Epithel Cells (Auto) 4.0 /HPF (0-13.0) 04/29/21 13:30 Urine Bacteria (Auto) 1+ /HPF (Negative) 05/14/21 10:57 Urine WBC Clumps 3+ /HPF 04/29/21 13:30 Urine Mucus Few /HPF 05/14/21 10:57 Urine Yeast (Budding) 1+ /HPF 05/14/21 10:57 Urine Osmolality 446 Mosm/kg 04/21/21 08:01 Urine Total Volume 1700 ml 05/08/21 09:34 Urine Creatinine 56.0 mg/dL (0.1-20.0) H 05/08/21 09:34 Ur Creatinine 24 Hour 1.0 (0.8-2.8) 05/08/21 09:34 Urine Sodium 71 mmol/L 04/21/21 08:01 Urine Total Protein 12 mg/dL (5-11.8) H 04/21/21 08:01 CSF Appearance Clear 04/29/21 11:45 CSF Color Colorless 04/29/21 11:45 CSF WBC 14 /mm3 (1-10) 04/29/21 11:45 CSF RBC 324 /mm3 (0-0) 04/29/21 11:45 CSF Seg Neutrophils 50.0 % (0-6) 04/29/21 11:45 CSF Lymphocytes % 40.0 % (40-80) 04/29/21 11:45 CSF Reactive Lymphs Not Reportable 04/29/21 11:45 CSF Monocytes % 10.0 % (15-45) 04/29/21 11:45 CSF Eosinophils % Not Reportable 04/29/21 11:45 CSF Basophils Not Reportable 04/29/21 11:45 CSF Pathologist Review C 04/29/21 11:45 CSF Glucose 161 mg/dL 04/29/21 11:45 CSF Total Protein 51 mg/dL 04/29/21 11:45 Plasma/Serum Alcohol < 0.01 % (0-0.07) 04/20/21 17:10 Heparin-induced Plt Ab Negative (Negative) 04/24/21 17:29 UF Heparin High Dose 1 % Release 04/24/21 17:29 EFE UFH Low Dose 0.1 0 % Release 04/24/21 17:29 EFE UFH Low Dose 0.5 0 % Release 04/24/21 17:29 Coronavirus (PCR) Negative (Negative) 04/21/21 Unknown Hepatitis A IgM Ab Non-reactive (NonReactive) 04/27/21 12:49 Hep Bs Antigen Nonreactive (Negative) 04/27/21 12:49 Hep B Core IgM Ab Non-reactive (NonReactive) 04/27/21 12:49 Hepatitis C Antibody Non-reactive (NonReactive) 04/27/21 12:49 Blood Type O POSITIVE 05/02/21 12:00 Antibody Screen Negative 05/02/21 12:00 Crossmatch See Detail 05/02/21 12:00 Microbiology: Microbiology 05/14/21 15:05 Peripheral/Venous Blood Culture - Preliminary NO GROWTH AFTER 48 HOURS 05/14/21 15:08 Peripheral/Venous Blood Culture - Preliminary NO GROWTH AFTER 48 HOURS Luther/IV: Voiding Method Indwelling Catheter Active Medications - Current Medications Current Medications: Generic Name Dose Route Start Last Admin Trade Name Freq PRN Reason Stop Dose Admin Acetaminophen 650 mg 04/20/21 21:31 05/14/21 09:50 Acetaminophen 325 Mg Tab PO 650 mg Q4H PRN Administration Pain MILD(1-3)/Fever >100.5/TURCIOS Albuterol 2.5 mg 04/22/21 14:49 04/23/21 15:18 Albuterol 2.5 Mg/3 Ml Nebu IH 2.5 mg Q4HRT PRN Administration Shortness Of Breath Amlodipine Besylate 5 mg 05/17/21 10:00 05/17/21 10:19 Amlodipine 5 Mg Tab FEEDTUBE 5 mg QDAY AZIZA Administration Lipase/Protease/Amylase 1 each 04/25/21 14:13 Lipase 10,500/Protease 25,000/Amylase 43,750 (Units) Dr Vasquez FEEDTUBE PRN PRN For Clogged Feeding Tube Aspirin 81 mg 05/04/21 10:00 05/17/21 10:18 Aspirin 81 Mg Tab Chew FEEDTUBE 81 mg QDAY AZIZA Administration Atorvastatin Calcium 40 mg 05/04/21 22:00 05/16/21 21:35 Atorvastatin 40 Mg Tab FEEDTUBE 40 mg QHS AZIZA Administration Dextrose 0 ml 05/16/21 10:50 Dextrose 10% *Hypoglycemia IV PRN PRN Hypoglycemia Famotidine 10 mg 04/27/21 10:00 05/17/21 10:18 Famotidine 10 Mg Tab FEEDTUBE 10 mg BID AZIZA Administration Heparin Sodium (Porcine) 5,000 unit 05/10/21 22:00 05/17/21 10:19 Heparin 5,000 Unit/1 Ml Vial SUB-Q 5,000 unit Q12HR AZIZA Administration Hydrophilic Ointment 1 applic 04/26/21 11:16 Lip Therapy Vaseline TP Q2HR PRN Dry Lips Insulin Human Lispro 0 unit 04/25/21 18:00 05/17/21 18:30 Insulin Lispro 100 Unit/Ml SUB-Q Not Given Q6HR [facility] Protocol Labetalol HCl 20 mg 05/12/21 11:34 05/17/21 18:37 Labetalol 20 Mg/4 Ml Inj IV 20 mg Q4H PRN Administration SBP >/=170 Levothyroxine Sodium 50 mcg 05/03/21 06:00 05/17/21 06:26 Levothyroxine 50 Mcg Tab PO 50 mcg DAILY@0600 [facility] Administration Lorazepam 1 mg 04/26/21 11:15 05/17/21 18:37 Lorazepam 2 Mg/Ml Vial IV 1 mg Q4H PRN Administration Sedation Metoclopramide HCl 5 mg 04/20/21 21:31 Metoclopramide 10 Mg/2 Ml Inj IV Q6H PRN Nausea And Vomiting Multi-Ingred Cream/Lotion/Oil/Oint 1 applic 04/26/21 11:16 Mineral Oil/Petrolatum, White Ophth Oint 3.5 Gm OU Q4HR PRN Dry Eye(s) Ondansetron HCl 4 mg 04/20/21 21:31 Ondansetron 4 Mg/2 Ml Inj IV Q8H PRN Nausea And Vomiting Senna/Docusate Sodium 1 tab 04/26/21 22:00 05/17/21 10:20 Sennosides/Docusate Sodium 8.6/50 Mg Tab FEEDTUBE 1 tab BID AZIZA Administration Simple Syrup 15 ml 04/25/21 14:13 Simple Syrup 15 Ml FEEDTUBE PRN PRN Hypoglycemia Simple Syrup 30 ml 04/25/21 14:13 Simple Syrup 15 Ml FEEDTUBE PRN PRN Hypoglycemia Sodium Bicarbonate 325 mg 04/25/21 14:13 04/27/21 13:00 Sodium Bicarbonate 325 Mg Tab FEEDTUBE 325 mg PRN PRN Administration For Clogged Feeding Tube Sodium Bicarbonate 1,300 mg 04/27/21 14:00 05/17/21 14:55 Sodium Bicarbonate 650 Mg Tab PO 1,300 mg TID AZIZA Administration Sodium Chloride 10 ml 04/20/21 22:00 05/17/21 10:19 Sodium Chloride 0.9% 10 Ml Flush Syringe IV 10 ml BID AZIZA Administration Sodium Chloride 10 ml 04/20/21 21:31 Sodium Chloride 0.9% 10 Ml Flush Syringe IV PRN PRN LINE FLUSH Sodium Chloride 10 ml 05/16/21 09:47 Sodium Chloride 0.9% 50 Ml Ivpb IV PRN PRN FLUSH Nutrition/Malnutrition Assess - Dietary Evaluation Nutrition/Malnutrition Findings: Nutrition Notes Start: 04/21/21 12:15 Freq: Status: Active Protocol: Document 05/17/21 17:15 JOSE (Rec: 05/17/21 17:23 JOSE [email or web address]) Nutrition Notes Initial or Follow up Brief Note Height 5 ft 2 in Weight 72.4 kg [place] Body Weight (kg) 50.00 BMI 29.2 Weight change and time frame No body weight change reported . Subjective/Other Information RD consult for routine F/U on TF continuation. PEG tube will be placed on to allow discharge to [facility]. PT continues on mechanical ventilation. #1 Nutrition Diagnosis Inadequate energy intake Diagnosis Progress(for reassessment Continues documentation) Nutrition Intervention Follow-Up By: 05/19/21 Additional Comments F/U: PEG placement, TF restart with Glucerna 1.2, vent status
[2021-05-18] MEDS: LEVOTHYROXINE 50 MCG TAB PO SCH (05:47)
[2021-05-18] MEDS: INSULIN LISPRO 100 UNIT/ML SUB-Q SCH ×3 (05:52→20:50)
[2021-05-18] MEDS: SODIUM BICARBONATE 650 MG TAB PO SCH ×3 (08:38→20:50)
[2021-05-18] MEDS: amLODIPine 5 MG TAB FEEDTUBE SCH (09:42)
[2021-05-18] MEDS: ASPIRIN 81 MG TAB CHEW FEEDTUBE SCH (09:42)
[2021-05-18] MEDS: FAMOTIDINE 10 MG TAB FEEDTUBE SCH ×2 (09:42→21:02)
[2021-05-18] MEDS: SENNOSIDES/DOCUSATE SODIUM 8.6/50 MG TAB FEEDTUBE SCH ×2 (09:43→21:02)
[2021-05-18] MEDS: HEPARIN 5,000 UNIT/1 ML VIAL SUB-Q SCH ×2 (09:43→21:01)
--- NOTE | 2021-05-18 13:40 | Progress Note ---
Assessment and Plan 80 y/o female with altered mental state, severe electrolyte imbalance with presumptive acute renal failure and hypothermia. 05/18/21L Peg tomorrow. NPO after midnight tonight. 05/17/21: Per IR peg on . Continue supportive measures. 05/16/21: Peg at some point. Once pegged transfer to LTACH. Continue PSV as tolerated. 05/13/21: Trach today. Per CM transfer to LTACH tomorrow. Supportive care 05/12/21: Daily PSV trials. NPO after midnight and chemistry in am. Trach tomorrow and then transfer over the weekend if all goes well. 05/11/21: Awaiting trach and peg placement. Discontinue vascath. Daily pSV trials. 05/10/21: Long discussion over phone with POA. Discussed what I felt was prognosis. Per POA, feels best thing to do at this moment is proceed with trach and peg. Will consult surgery for this. Spoke with renal and they feel she likely will not need HD anymore. Will keep catheter at least another 24-36 hours and likely remove sometime tomorrow. Continue daily PSV and other supportive measures. Placement post Trach. 05/09/21: Will reach out to neuro for more help. Read their note this am but need a definite plan. Would like to meet/talk with POA about next steps but need a better idea of what her neuro prognosis is. Continue daily PSV trials. Prognosis overall appears to be very guarded to poor. 05/08/21: Continue supportive measures. HD per renal. Follow up neuro recs tomorrow. Need to start talking with family about next steps but need neuro input. Daily pSV to document failing. 05/07/21: Continue supportive measures. HD per renal. Follow up neuro recs tomorrow. Need to start talking with family about next steps but need neuro input. 05/06/21: Await neurology recs now that LINCOLN Could not be done. Based on neurology note, no direct source for stroke on MRA. Patient was seen on this day and can be confirmed by staff. Not sure why my note did not save. 05/05/21: follow up neurology notes. They are discussing with cards the LINCOLN. Continue vent support. Poor prognosis. 05/04/21: follow up MRA when done. LINCOLN pending. HD per renal. Daily PSV trials as tolerated. Poor prognosis given MRI findings and lack of responsiveness off sedation. 05/03/21: Follow up Neurology recs for today. Attempt PSV trials. HD on yesterday. Very very guarded prognosis. 05/02/21: MRI today. Repeat cultures. HD per renal. Once MRI results back will discuss with Neurosurgery to see if anything further should be done. Abx per ID. Overall prognosis is very guarded to poor. 04/29/21: Will reach out to neuro after 24-48 hours post spinal tap pending any change in mentation. If improvement, may need to consider shunt placement. If not, not sure that there is anything they can offer. if they still want MRI, then can obtain. Now spiking temps. Blood cultures and UA. Given time frame in Hospital will place on Vanc and Cefepime. Guarded prognosis. HD per renal. Given anasarca, will ask renal about trying to remove volume. 04/28/21: Will discuss with renal about HD again today. MRI vs LP (large amount). Coags are ok. Will attempt to get at least one of these done today. Patient is still on 80% but sat is 100. Will ask [employer] about placing ART line today. Wean FiO2 as tolerated. Guarded prognosis. 04/27/21: HD today per renal. Vascath placed and awaiting CXR for conformation of good placement (done and good). Vent weaning as tolerated for sats >88%. ABG in the AM. Will check Coags in the am and hopeful these are stable. Platelets need to above 50K. Would like to do large volume spinal tap to see if this helps with mentation. Will also obtain MRI once oxygen requirement improves. 04/26/21: WIll electively intubate and then obtain MRI. Pending MRI results, will likely order large volume spinal tap to assess if NPH is a factor or not. Guarded prognosis. Electrolytes are improving. 04/25/21: Continue to follow renal recs. Will reach out to POA either today or tomorrow for further updates. Follow up renal recs. Monitor electrolytes and renal function. Guarded prognosis. 1. Neuro-reached out to neuro surgery, placed consult in regards to CT findings 2. Renal-appreciate help and recs, will follow IV hydration recommendations 3. Blood cultures. Urine was negative 4. Jorge Hugger for temp Guarded prognosis CCT 31 minutes. Subjective Date of service: 05/18/21 Principal diagnosis: Acute respiratory failure Interval history: No acute events. Awaiting peg placement Objective Vital Signs - 12hr 05/18/21 05/18/21 05/18/21 02:00 03:00 03:34 Temperature Pulse Rate 99 H 99 H 98 H Pulse Rate [ From Monitor] Respiratory 20 17 Rate Blood Pressure 148/78 147/74 147/74 O2 Sat by Pulse 99 99 99 Oximetry O2 Sat by Pulse 100 Oximetry [ Assessment] 05/18/21 05/18/21 05/18/21 04:00 04:13 05:00 Temperature 98.0 F Pulse Rate 95 H 96 H 91 H Pulse Rate [ 96 H From Monitor] Respiratory 15 14 Rate Blood Pressure 134/73 141/69 O2 Sat by Pulse 99 99 Oximetry O2 Sat by Pulse Oximetry [ Assessment] 05/18/21 05/18/21 05/18/21 06:00 07:00 07:09 Temperature 98.9 F Pulse Rate 98 H 90 Pulse Rate [ From Monitor] Respiratory 19 14 Rate Blood Pressure 151/78 148/70 O2 Sat by Pulse 99 99 Oximetry O2 Sat by Pulse Oximetry [ Assessment] 05/18/21 05/18/21 05/18/21 07:54 08:00 09:00 Temperature Pulse Rate 99 H 96 H 99 H Pulse Rate [ From Monitor] Respiratory 16 15 Rate Blood Pressure 148/70 151/84 137/75 O2 Sat by Pulse 99 99 99 Oximetry O2 Sat by Pulse Oximetry [ Assessment] 05/18/21 05/18/21 05/18/21 09:42 10:00 11:20 Temperature Pulse Rate 89 97 H 96 H Pulse Rate [ From Monitor] Respiratory 17 Rate Blood Pressure 137/75 152/83 141/92 O2 Sat by Pulse 99 99 Oximetry O2 Sat by Pulse Oximetry [ Assessment] 05/18/21 05/18/21 11:33 12:00 Temperature 98.1 F Pulse Rate Pulse Rate [ From Monitor] Respiratory 20 Rate Blood Pressure O2 Sat by Pulse 96 Oximetry O2 Sat by Pulse Oximetry [ Assessment] Constitutional: other (critically ill, somnolent, on vent) Eyes: non-icteric ENT: oropharynx dry Effort: other (tachypneic but not labored) Ascultation: Bilateral: clear Cardiovascular: regular rate and rhythm Gastrointestinal: normoactive bowel sounds Integumentary: normal Extremities: no cyanosis, no edema, pink and warm Neurologic: unable to assess Psychiatric: other (unable to assess) CBC and BMP: 05/17/21 04:14 05/17/21 04:14 ABG, PT/INR, D-dimer: ABG ABG pH 7.487 (7.320-7.450) H 05/02/21 04:34 POC ABG pCO2 35.3 mmHg (32.0-48.0) 05/02/21 04:34 ABG pCO2 31.6 mm Hg 04/21/21 15:47 POC ABG pO2 78.6 mmHg (83-108) L 05/02/21 04:34 ABG pO2 168.1 mm Hg (80.0-90.0) H 04/21/21 15:47 POC ABG HCO3 26.1 05/02/21 04:34 ABG O2 Saturation 96.0 (0-100) 05/02/21 04:34 PT/INR, D-dimer PT 15.4 Sec. (12.2-14.9) H 05/17/21 04:14 INR 1.10 (0.87-1.13) 05/17/21 04:14 Abnormal lab findings: Abnormal Labs 04/20/21 04/20/21 04/20/21 17:10 17:10 17:10 WBC 17.4 H RBC 5.19 H Hgb Hct 46.8 H MCH 27 L RDW 17.2 H Plt Count Seg Neuts % (Manual) 98.0 H Lymphocytes % (Manual) 2.0 L Nucleated RBC % 1.0 H Seg Neutrophils # Man 17.1 H Lymphocytes # (Manual) 0.3 L PT ABG pH POC ABG pCO2 POC ABG pO2 ABG pO2 ABG O2 Saturation ABG Base Excess ABG Hemoglobin ABG Oxyhemoglobin ABG Potassium ABG Chloride ABG Glucose Oxyhemoglobin Carboxyhemoglobin Sodium 173 H* Potassium Chloride 132.9 H Carbon Dioxide 17 L BUN 120 H Creatinine 4.2 H Glucose 762 H* POC Glucose Hemoglobin A1c Lactic Acid Calcium Phosphorus Magnesium 3.80 H Transferrin AST 72 H ALT 63 H Alkaline Phosphatase 148 H Total Creatine Kinase 3697 H CK-MB (CK-2) 36.0 H Serum Total Protein Total Protein Albumin 2.2 L Mpapz-0-Rnevnnato Zjmzt-1-Gxgnelwpq Gamma Globulins PEP Interpretation HDL Cholesterol TSH Arterial Blood Glucose Arterial Blood Ionized Calcium Urine WBC (Auto) Urine Creatinine Urine Total Protein Crossmatch 04/20/21 04/20/21 04/20/21 17:10 17:10 18:55 WBC RBC Hgb Hct MCH RDW Plt Count Seg Neuts % (Manual) Lymphocytes % (Manual) Nucleated RBC % Seg Neutrophils # Man Lymphocytes # (Manual) PT ABG pH POC ABG pCO2 POC ABG pO2 ABG pO2 ABG O2 Saturation ABG Base Excess ABG Hemoglobin ABG Oxyhemoglobin ABG Potassium ABG Chloride ABG Glucose Oxyhemoglobin Carboxyhemoglobin Sodium Potassium Chloride Carbon Dioxide BUN Creatinine Glucose POC Glucose 574 H Hemoglobin A1c Lactic Acid 2.60 H* Calcium Phosphorus Magnesium Transferrin AST ALT Alkaline Phosphatase Total Creatine Kinase CK-MB (CK-2) Serum Total Protein Total Protein Albumin Fgegw-3-Pautyzobe Rbnap-4-Ixdlbvkde Gamma Globulins PEP Interpretation HDL Cholesterol TSH 6.040 H Arterial Blood Glucose Arterial Blood Ionized Calcium Urine WBC (Auto) Urine Creatinine Urine Total Protein Crossmatch 04/20/21 04/20/21 04/20/21 22:12 22:58 22:58 WBC RBC Hgb Hct MCH RDW Plt Count Seg Neuts % (Manual) Lymphocytes % (Manual) Nucleated RBC % Seg Neutrophils # Man Lymphocytes # (Manual) PT ABG pH POC ABG pCO2 POC ABG pO2 ABG pO2 ABG O2 Saturation ABG Base Excess ABG Hemoglobin ABG Oxyhemoglobin ABG Potassium ABG Chloride ABG Glucose Oxyhemoglobin Carboxyhemoglobin Sodium 172 H* Potassium 3.2 L Chloride 134.2 H Carbon Dioxide 17 L BUN 112 H Creatinine 3.8 H Glucose 803 H* POC Glucose 554 H Hemoglobin A1c Lactic Acid Calcium 8.3 L Phosphorus Magnesium 3.50 H Transferrin AST ALT Alkaline Phosphatase Total Creatine Kinase CK-MB (CK-2) Serum Total Protein Total Protein Albumin Ohlwg-6-Endkqimmc Rqwbz-4-Xuyxdnhmq Gamma Globulins PEP Interpretation HDL Cholesterol TSH Arterial Blood Glucose Arterial Blood Ionized Calcium Urine WBC (Auto) Urine Creatinine Urine Total Protein Crossmatch 04/21/21 04/21/21 04/21/21 00:14 00:22 02:01 WBC RBC Hgb Hct MCH RDW Plt Count Seg Neuts % (Manual) Lymphocytes % (Manual) Nucleated RBC % Seg Neutrophils # Man Lymphocytes # (Manual) PT ABG pH POC ABG pCO2 POC ABG pO2 ABG pO2 ABG O2 Saturation ABG Base Excess ABG Hemoglobin ABG Oxyhemoglobin ABG Potassium ABG Chloride ABG Glucose Oxyhemoglobin Carboxyhemoglobin Sodium 176 H* 175 H* Potassium 2.9 L* 3.0 L Chloride 139.9 H 136.2 H Carbon Dioxide 17 L 19 L BUN 113 H 112 H Creatinine 3.9 H 3.6 H Glucose 729 H* 582 H* POC Glucose > 600 H Hemoglobin A1c Lactic Acid Calcium Phosphorus Magnesium Transferrin AST ALT Alkaline Phosphatase Total Creatine Kinase CK-MB (CK-2) Serum Total Protein Total Protein Albumin Mfmmy-9-Rlzlsxrtx Baoqt-3-Ttnelvida Gamma Globulins PEP Interpretation HDL Cholesterol TSH Arterial Blood Glucose Arterial Blood Ionized Calcium Urine WBC (Auto) Urine Creatinine Urine Total Protein Crossmatch 04/21/21 04/21/21 04/21/21 03:11 03:20 03:41 WBC 14.1 H RBC Hgb Hct MCH 27 L RDW 16.8 H Plt Count 114 L Seg Neuts % (Manual) 97.0 H Lymphocytes % (Manual) 3.0 L Nucleated RBC % 1.0 H Seg Neutrophils # Man 13.7 H Lymphocytes # (Manual) 0.4 L PT ABG pH POC ABG pCO2 POC ABG pO2 ABG pO2 52.3 L ABG O2 Saturation 84.5 L ABG Base Excess -2.9 L ABG Hemoglobin ABG Oxyhemoglobin ABG Potassium ABG Chloride ABG Glucose Oxyhemoglobin 82.9 L Carboxyhemoglobin Sodium Potassium Chloride Carbon Dioxide BUN Creatinine Glucose POC Glucose 404 H Hemoglobin A1c Lactic Acid Calcium Phosphorus Magnesium Transferrin AST ALT Alkaline Phosphatase Total Creatine Kinase CK-MB (CK-2) Serum Total Protein Total Protein Albumin Tcoip-4-Ytcvgtrbt Giydb-7-Ymxcqfhaa Gamma Globulins PEP Interpretation HDL Cholesterol TSH Arterial Blood Glucose Arterial Blood Ionized Calcium Urine WBC (Auto) Urine Creatinine Urine Total Protein Crossmatch 04/21/21 04/21/21 04/21/21 03:41 04:24 05:45 WBC RBC Hgb Hct MCH RDW Plt Count Seg Neuts % (Manual) Lymphocytes % (Manual) Nucleated RBC % Seg Neutrophils # Man Lymphocytes # (Manual) PT ABG pH POC ABG pCO2 POC ABG pO2 ABG pO2 ABG O2 Saturation ABG Base Excess ABG Hemoglobin ABG Oxyhemoglobin ABG Potassium ABG Chloride ABG Glucose Oxyhemoglobin Carboxyhemoglobin Sodium 179 H* Potassium 2.9 L* Chloride 138.2 H Carbon Dioxide 20 L BUN 111 H Creatinine 3.7 H Glucose 465 H POC Glucose 353 H 280 H Hemoglobin A1c Lactic Acid Calcium Phosphorus Magnesium Transferrin AST 73 H ALT 61 H Alkaline Phosphatase 144 H Total Creatine Kinase CK-MB (CK-2) Serum Total Protein Total Protein Albumin 2.5 L Zqfcu-1-Oaufubrwh Mppfu-1-Fdfdrygyu Gamma Globulins PEP Interpretation HDL Cholesterol TSH Arterial Blood Glucose Arterial Blood Ionized Calcium Urine WBC (Auto) Urine Creatinine Urine Total Protein Crossmatch 04/21/21 04/21/21 04/21/21 06:47 08:01 11:11 WBC RBC Hgb Hct MCH RDW Plt Count Seg Neuts % (Manual) Lymphocytes % (Manual) Nucleated RBC % Seg Neutrophils # Man Lymphocytes # (Manual) PT ABG pH POC ABG pCO2 POC ABG pO2 ABG pO2 ABG O2 Saturation ABG Base Excess ABG Hemoglobin ABG Oxyhemoglobin ABG Potassium ABG Chloride ABG Glucose Oxyhemoglobin Carboxyhemoglobin Sodium Potassium Chloride Carbon Dioxide BUN Creatinine Glucose POC Glucose 260 H 68 L Hemoglobin A1c Lactic Acid Calcium Phosphorus Magnesium Transferrin AST ALT Alkaline Phosphatase Total Creatine Kinase CK-MB (CK-2) Serum Total Protein Total Protein Albumin Owswn-1-Nklbeprzf Rxboo-9-Tswharbjt Gamma Globulins PEP Interpretation HDL Cholesterol TSH Arterial Blood Glucose Arterial Blood Ionized Calcium Urine WBC (Auto) Urine Creatinine 44.3 H Urine Total Protein 12 H Crossmatch 04/21/21 04/21/21 04/21/21 12:51 13:41 14:40 WBC RBC Hgb Hct MCH RDW Plt Count Seg Neuts % (Manual) Lymphocytes % (Manual) Nucleated RBC % Seg Neutrophils # Man Lymphocytes # (Manual) PT ABG pH 7.275 L POC ABG pCO2 POC ABG pO2 63.4 L ABG pO2 ABG O2 Saturation ABG Base Excess ABG Hemoglobin 8.4 L ABG Oxyhemoglobin 89.5 L ABG Potassium ABG Chloride 108.0 H ABG Glucose 404 H Oxyhemoglobin Carboxyhemoglobin Sodium Potassium Chloride Carbon Dioxide BUN Creatinine Glucose POC Glucose 146 H 186 H Hemoglobin A1c Lactic Acid Calcium Phosphorus Magnesium Transferrin AST ALT Alkaline Phosphatase Total Creatine Kinase CK-MB (CK-2) Serum Total Protein Total Protein Albumin Qdtxl-2-Rpdbcirtx Gglod-2-Owuqekztk Gamma Globulins PEP Interpretation HDL Cholesterol TSH Arterial Blood Glucose 404 H Arterial Blood Ionized Calcium Urine WBC (Auto) Urine Creatinine Urine Total Protein Crossmatch 04/21/21 04/21/21 04/21/21 15:47 16:25 17:57 WBC RBC Hgb Hct MCH RDW Plt Count Seg Neuts % (Manual) Lymphocytes % (Manual) Nucleated RBC % Seg Neutrophils # Man Lymphocytes # (Manual) PT ABG pH 7.486 H POC ABG pCO2 POC ABG pO2 ABG pO2 168.1 H ABG O2 Saturation 99.1 H ABG Base Excess ABG Hemoglobin 8.9 L ABG Oxyhemoglobin ABG Potassium ABG Chloride ABG Glucose Oxyhemoglobin Carboxyhemoglobin Sodium Potassium Chloride Carbon Dioxide BUN Creatinine Glucose POC Glucose 172 H 143 H Hemoglobin A1c Lactic Acid Calcium Phosphorus Magnesium Transferrin AST ALT Alkaline Phosphatase Total Creatine Kinase CK-MB (CK-2) Serum Total Protein Total Protein Albumin Ergtj-2-Jgyolnflj Xekcz-9-Znnfdvwqk Gamma Globulins PEP Interpretation HDL Cholesterol TSH Arterial Blood Glucose Arterial Blood Ionized Calcium Urine WBC (Auto) Urine Creatinine Urine Total Protein Crossmatch 04/21/21 04/21/21 04/21/21 18:49 19:10 20:26 WBC RBC Hgb Hct MCH RDW Plt Count Seg Neuts % (Manual) Lymphocytes % (Manual) Nucleated RBC % Seg Neutrophils # Man Lymphocytes # (Manual) PT ABG pH POC ABG pCO2 POC ABG pO2 ABG pO2 ABG O2 Saturation ABG Base Excess ABG Hemoglobin ABG Oxyhemoglobin ABG Potassium ABG Chloride ABG Glucose Oxyhemoglobin Carboxyhemoglobin Sodium 174 H* Potassium 7.2 H* D Chloride 138.2 H Carbon Dioxide 21 L BUN 99 H Creatinine 4.0 H Glucose 157 H POC Glucose 126 H 190 H Hemoglobin A1c Lactic Acid Calcium Phosphorus Magnesium Transferrin AST 134 H ALT 71 H Alkaline Phosphatase 135 H Total Creatine Kinase 3504 H CK-MB (CK-2) Serum Total Protein Total Protein Albumin 2.2 L Pajus-5-Lfeqrmpji Dimdc-4-Hoseisfkw Gamma Globulins PEP Interpretation HDL Cholesterol TSH Arterial Blood Glucose Arterial Blood Ionized Calcium Urine WBC (Auto) Urine Creatinine Urine Total Protein Crossmatch 12/30/21 12/30/21 12/30/21 20:53 21:52 22:55 WBC RBC Hgb Hct MCH RDW Plt Count Seg Neuts % (Manual) Lymphocytes % (Manual) Nucleated RBC % Seg Neutrophils # Man Lymphocytes # (Manual) PT ABG pH POC ABG pCO2 POC ABG pO2 ABG pO2 ABG O2 Saturation ABG Base Excess ABG Hemoglobin ABG Oxyhemoglobin ABG Potassium ABG Chloride ABG Glucose Oxyhemoglobin Carboxyhemoglobin Sodium Potassium Chloride Carbon Dioxide BUN Creatinine Glucose POC Glucose 116 H 135 H 158 H Hemoglobin A1c Lactic Acid Calcium Phosphorus Magnesium Transferrin AST ALT Alkaline Phosphatase Total Creatine Kinase CK-MB (CK-2) Serum Total Protein Total Protein Albumin Kevlp-0-Xwxgaihhq Wgyra-6-Cvfzukmnx Gamma Globulins PEP Interpretation HDL Cholesterol TSH Arterial Blood Glucose Arterial Blood Ionized Calcium Urine WBC (Auto) Urine Creatinine Urine Total Protein Crossmatch 04/21/21 04/22/21 04/22/21 23:00 00:01 00:39 WBC RBC Hgb Hct MCH RDW Plt Count Seg Neuts % (Manual) Lymphocytes % (Manual) Nucleated RBC % Seg Neutrophils # Man Lymphocytes # (Manual) PT ABG pH POC ABG pCO2 POC ABG pO2 ABG pO2 ABG O2 Saturation ABG Base Excess ABG Hemoglobin ABG Oxyhemoglobin ABG Potassium ABG Chloride ABG Glucose Oxyhemoglobin Carboxyhemoglobin Sodium 176 H* 171 H* Potassium Chloride 140.0 H Carbon Dioxide 20 L BUN 98 H Creatinine 3.9 H Glucose 206 H POC Glucose 182 H Hemoglobin A1c Lactic Acid Calcium Phosphorus Magnesium Transferrin AST ALT Alkaline Phosphatase Total Creatine Kinase 3240 H CK-MB (CK-2) Serum Total Protein Total Protein Albumin Ttgqt-8-Xzdomvrmu Vmuyo-8-Vdpekutma Gamma Globulins PEP Interpretation HDL Cholesterol TSH Arterial Blood Glucose Arterial Blood Ionized Calcium Urine WBC (Auto) Urine Creatinine Urine Total Protein Crossmatch 04/22/21 04/22/21 04/22/21 00:58 01:04 04:52 WBC 11.2 H RBC Hgb Hct 44.3 H MCH 27 L RDW 17.1 H Plt Count 86 L Seg Neuts % (Manual) 86.0 H Lymphocytes % (Manual) 13.0 L Nucleated RBC % Seg Neutrophils # Man 9.6 H Lymphocytes # (Manual) PT ABG pH POC ABG pCO2 POC ABG pO2 ABG pO2 ABG O2 Saturation ABG Base Excess ABG Hemoglobin ABG Oxyhemoglobin ABG Potassium ABG Chloride ABG Glucose Oxyhemoglobin Carboxyhemoglobin Sodium Potassium Chloride Carbon Dioxide BUN Creatinine Glucose POC Glucose 176 H 143 H Hemoglobin A1c Lactic Acid Calcium Phosphorus Magnesium Transferrin AST ALT Alkaline Phosphatase Total Creatine Kinase CK-MB (CK-2) Serum Total Protein Total Protein Albumin Gzpou-7-Ldeknobeq Fdnxa-9-Dscqnjxbm Gamma Globulins PEP Interpretation HDL Cholesterol TSH Arterial Blood Glucose Arterial Blood Ionized Calcium Urine WBC (Auto) Urine Creatinine Urine Total Protein Crossmatch 04/22/21 04/22/21 04/22/21 06:07 06:09 07:18 WBC RBC Hgb Hct MCH RDW Plt Count Seg Neuts % (Manual) Lymphocytes % (Manual) Nucleated RBC % Seg Neutrophils # Man Lymphocytes # (Manual) PT ABG pH POC ABG pCO2 POC ABG pO2 ABG pO2 ABG O2 Saturation ABG Base Excess ABG Hemoglobin ABG Oxyhemoglobin ABG Potassium ABG Chloride ABG Glucose Oxyhemoglobin Carboxyhemoglobin Sodium Potassium Chloride Carbon Dioxide BUN Creatinine Glucose POC Glucose 206 H 163 H 158 H Hemoglobin A1c Lactic Acid Calcium Phosphorus Magnesium Transferrin AST ALT Alkaline Phosphatase Total Creatine Kinase CK-MB (CK-2) Serum Total Protein Total Protein Albumin Dxqcz-1-Gnpmkfslo Clmyx-2-Rhzspmorv Gamma Globulins PEP Interpretation HDL Cholesterol TSH Arterial Blood Glucose Arterial Blood Ionized Calcium Urine WBC (Auto) Urine Creatinine Urine Total Protein Crossmatch 04/22/21 04/22/21 04/22/21 08:59 08:59 08:59 WBC RBC Hgb Hct MCH RDW Plt Count Seg Neuts % (Manual) Lymphocytes % (Manual) Nucleated RBC % Seg Neutrophils # Man Lymphocytes # (Manual) PT ABG pH POC ABG pCO2 POC ABG pO2 ABG pO2 ABG O2 Saturation ABG Base Excess ABG Hemoglobin ABG Oxyhemoglobin ABG Potassium ABG Chloride ABG Glucose Oxyhemoglobin Carboxyhemoglobin Sodium 169 H* Potassium 3.5 L Chloride 134.5 H Carbon Dioxide 20 L BUN 95 H Creatinine 3.6 H Glucose 151 H POC Glucose Hemoglobin A1c Lactic Acid Calcium Phosphorus Magnesium Transferrin AST 121 H ALT 75 H Alkaline Phosphatase 137 H Total Creatine Kinase 3105 H CK-MB (CK-2) Serum Total Protein 5.5 L Total Protein 6.0 L Albumin 2.8 L 2.1 L Dedbv-8-Qlwpbzycq 0.6 H Aczbf-3-Ietxqxddz 1.0 H Gamma Globulins 0.6 L PEP Interpretation see below H HDL Cholesterol TSH Arterial Blood Glucose Arterial Blood Ionized Calcium Urine WBC (Auto) Urine Creatinine Urine Total Protein Crossmatch 04/22/21 04/22/21 04/22/21 09:44 10:24 12:20 WBC RBC Hgb Hct MCH RDW Plt Count Seg Neuts % (Manual) Lymphocytes % (Manual) Nucleated RBC % Seg Neutrophils # Man Lymphocytes # (Manual) PT ABG pH POC ABG pCO2 POC ABG pO2 ABG pO2 ABG O2 Saturation ABG Base Excess ABG Hemoglobin ABG Oxyhemoglobin ABG Potassium ABG Chloride ABG Glucose Oxyhemoglobin Carboxyhemoglobin Sodium Potassium Chloride Carbon Dioxide BUN Creatinine Glucose POC Glucose 107 H 131 H Hemoglobin A1c Lactic Acid Calcium Phosphorus Magnesium 2.80 H Transferrin AST ALT Alkaline Phosphatase Total Creatine Kinase CK-MB (CK-2) Serum Total Protein Total Protein Albumin Xvlgm-1-Qcjnptvct Orjhm-6-Usffyfywh Gamma Globulins PEP Interpretation HDL Cholesterol TSH Arterial Blood Glucose Arterial Blood Ionized Calcium Urine WBC (Auto) Urine Creatinine Urine Total Protein Crossmatch 04/22/21 04/22/21 04/22/21 13:19 14:16 15:22 WBC RBC Hgb Hct MCH RDW Plt Count Seg Neuts % (Manual) Lymphocytes % (Manual) Nucleated RBC % Seg Neutrophils # Man Lymphocytes # (Manual) PT ABG pH POC ABG pCO2 POC ABG pO2 ABG pO2 ABG O2 Saturation ABG Base Excess ABG Hemoglobin ABG Oxyhemoglobin ABG Potassium ABG Chloride ABG Glucose Oxyhemoglobin Carboxyhemoglobin Sodium Potassium Chloride Carbon Dioxide BUN Creatinine Glucose POC Glucose 147 H 154 H 136 H Hemoglobin A1c Lactic Acid Calcium Phosphorus Magnesium Transferrin AST ALT Alkaline Phosphatase Total Creatine Kinase CK-MB (CK-2) Serum Total Protein Total Protein Albumin Vwlll-5-Kqshpnncs Iuddo-8-Zytrtzxhe Gamma Globulins PEP Interpretation HDL Cholesterol TSH Arterial Blood Glucose Arterial Blood Ionized Calcium Urine WBC (Auto) Urine Creatinine Urine Total Protein Crossmatch 04/22/21 04/22/21 04/22/21 15:55 15:55 16:22 WBC RBC Hgb Hct MCH RDW Plt Count Seg Neuts % (Manual) Lymphocytes % (Manual) Nucleated RBC % Seg Neutrophils # Man Lymphocytes # (Manual) PT ABG pH POC ABG pCO2 POC ABG pO2 ABG pO2 ABG O2 Saturation ABG Base Excess ABG Hemoglobin ABG Oxyhemoglobin ABG Potassium ABG Chloride ABG Glucose Oxyhemoglobin Carboxyhemoglobin Sodium 169 H* Potassium Chloride 133.5 H Carbon Dioxide 19 L BUN 94 H Creatinine 3.8 H Glucose 150 H POC Glucose 140 H Hemoglobin A1c 17.1 H Lactic Acid Calcium Phosphorus Magnesium Transferrin AST ALT Alkaline Phosphatase Total Creatine Kinase CK-MB (CK-2) Serum Total Protein Total Protein Albumin Kxujl-7-Devbfeokr Ekwca-0-Heelmfedk Gamma Globulins PEP Interpretation HDL Cholesterol TSH Arterial Blood Glucose Arterial Blood Ionized Calcium Urine WBC (Auto) Urine Creatinine Urine Total Protein Crossmatch 04/22/21 04/22/21 04/22/21 18:11 18:26 23:19 WBC RBC Hgb Hct MCH RDW Plt Count Seg Neuts % (Manual) Lymphocytes % (Manual) Nucleated RBC % Seg Neutrophils # Man Lymphocytes # (Manual) PT ABG pH POC ABG pCO2 POC ABG pO2 ABG pO2 ABG O2 Saturation ABG Base Excess ABG Hemoglobin ABG Oxyhemoglobin ABG Potassium ABG Chloride ABG Glucose Oxyhemoglobin Carboxyhemoglobin Sodium Potassium Chloride Carbon Dioxide BUN Creatinine Glucose POC Glucose 146 H 188 H Hemoglobin A1c Lactic Acid Calcium Phosphorus Magnesium Transferrin AST ALT Alkaline Phosphatase Total Creatine Kinase 2497 H CK-MB (CK-2) Serum Total Protein Total Protein Albumin Ppqne-1-Wugcfybwr Effjq-9-Rdkfrxtdl Gamma Globulins PEP Interpretation HDL Cholesterol TSH Arterial Blood Glucose Arterial Blood Ionized Calcium Urine WBC (Auto) Urine Creatinine Urine Total Protein Crossmatch 04/23/21 04/23/21 04/23/21 00:27 05:23 07:50 WBC RBC Hgb Hct MCH RDW Plt Count Seg Neuts % (Manual) Lymphocytes % (Manual) Nucleated RBC % Seg Neutrophils # Man Lymphocytes # (Manual) PT ABG pH POC ABG pCO2 POC ABG pO2 ABG pO2 ABG O2 Saturation ABG Base Excess ABG Hemoglobin ABG Oxyhemoglobin ABG Potassium ABG Chloride ABG Glucose Oxyhemoglobin Carboxyhemoglobin Sodium 162 H* Potassium Chloride Carbon Dioxide BUN Creatinine Glucose POC Glucose 212 H 239 H Hemoglobin A1c Lactic Acid Calcium Phosphorus Magnesium Transferrin AST ALT Alkaline Phosphatase Total Creatine Kinase CK-MB (CK-2) Serum Total Protein Total Protein Albumin Tksnf-6-Mjcqaddbr Dejvh-4-Fswaaqqak Gamma Globulins PEP Interpretation HDL Cholesterol TSH Arterial Blood Glucose Arterial Blood Ionized Calcium Urine WBC (Auto) Urine Creatinine Urine Total Protein Crossmatch 04/23/21 04/23/2104/23/22 08:13 08:13 08:13 WBC 11.9 H RBC Hgb Hct MCH 26 L RDW 16.5 H Plt Count 72 L Seg Neuts % (Manual) 80.0 H Lymphocytes % (Manual) 5.0 L Nucleated RBC % Seg Neutrophils # Man 9.5 H Lymphocytes # (Manual) 0.6 L PT ABG pH POC ABG pCO2 POC ABG pO2 ABG pO2 ABG O2 Saturation ABG Base Excess ABG Hemoglobin ABG Oxyhemoglobin ABG Potassium ABG Chloride ABG Glucose Oxyhemoglobin Carboxyhemoglobin Sodium 164 H* Potassium Chloride 128.0 H Carbon Dioxide 21 L BUN 93 H Creatinine 3.8 H Glucose 293 H POC Glucose Hemoglobin A1c Lactic Acid Calcium Phosphorus Magnesium Transferrin AST 99 H ALT 70 H Alkaline Phosphatase 147 H Total Creatine Kinase 1803 H CK-MB (CK-2) Serum Total Protein Total Protein 6.1 L Albumin 2.0 L Mlvqz-6-Aqzeioazd Djktq-1-Dlgchhpkc Gamma Globulins PEP Interpretation HDL Cholesterol TSH Arterial Blood Glucose Arterial Blood Ionized Calcium Urine WBC (Auto) Urine Creatinine Urine Total Protein Crossmatch 04/23/21 04/23/21 04/23/21 12:06 17:35 18:17 WBC RBC Hgb Hct MCH RDW Plt Count Seg Neuts % (Manual) Lymphocytes % (Manual) Nucleated RBC % Seg Neutrophils # Man Lymphocytes # (Manual) PT ABG pH POC ABG pCO2 POC ABG pO2 ABG pO2 ABG O2 Saturation ABG Base Excess ABG Hemoglobin ABG Oxyhemoglobin ABG Potassium ABG Chloride ABG Glucose Oxyhemoglobin Carboxyhemoglobin Sodium 160 H Potassium Chloride Carbon Dioxide BUN Creatinine Glucose POC Glucose 311 H 370 H Hemoglobin A1c Lactic Acid Calcium Phosphorus Magnesium Transferrin AST ALT Alkaline Phosphatase Total Creatine Kinase CK-MB (CK-2) Serum Total Protein Total Protein Albumin Ycdru-9-Zzbnjavow Dityt-5-Zseleijdi Gamma Globulins PEP Interpretation HDL Cholesterol TSH Arterial Blood Glucose Arterial Blood Ionized Calcium Urine WBC (Auto) Urine Creatinine Urine Total Protein Crossmatch 04/24/21 04/24/21 04/24/21 02:13 06:00 06:00 WBC RBC Hgb Hct MCH 27 L RDW 17.0 H Plt Count 58 L Seg Neuts % (Manual) Lymphocytes % (Manual) 2.0 L Nucleated RBC % Seg Neutrophils # Man 8.9 H Lymphocytes # (Manual) 0.2 L PT ABG pH POC ABG pCO2 POC ABG pO2 ABG pO2 ABG O2 Saturation ABG Base Excess ABG Hemoglobin ABG Oxyhemoglobin ABG Potassium ABG Chloride ABG Glucose Oxyhemoglobin Carboxyhemoglobin Sodium 160 H Potassium Chloride Carbon Dioxide BUN Creatinine Glucose POC Glucose Hemoglobin A1c Lactic Acid Calcium Phosphorus Magnesium 2.90 H Transferrin AST ALT Alkaline Phosphatase Total Creatine Kinase CK-MB (CK-2) Serum Total Protein Total Protein Albumin Acaqk-2-Ooiocvazd Aezow-6-Jmxobyvbt Gamma Globulins PEP Interpretation HDL Cholesterol TSH Arterial Blood Glucose Arterial Blood Ionized Calcium Urine WBC (Auto) Urine Creatinine Urine Total Protein Crossmatch 04/24/21 04/24/21 04/24/21 07:46 08:15 11:34 WBC RBC Hgb Hct MCH RDW Plt Count Seg Neuts % (Manual) Lymphocytes % (Manual) Nucleated RBC % Seg Neutrophils # Man Lymphocytes # (Manual) PT ABG pH POC ABG pCO2 POC ABG pO2 ABG pO2 ABG O2 Saturation ABG Base Excess ABG Hemoglobin ABG Oxyhemoglobin ABG Potassium ABG Chloride ABG Glucose Oxyhemoglobin Carboxyhemoglobin Sodium 159 H Potassium Chloride 125.6 H Carbon Dioxide 19 L BUN 94 H Creatinine 3.7 H Glucose 514 H* POC Glucose 395 H 422 H Hemoglobin A1c Lactic Acid Calcium Phosphorus Magnesium Transferrin AST ALT 61 H Alkaline Phosphatase 155 H Total Creatine Kinase CK-MB (CK-2) Serum Total Protein Total Protein 6.1 L Albumin 1.5 L Emlhf-7-Jfavswvee Rbyji-5-Uczolxeaa Gamma Globulins PEP Interpretation HDL Cholesterol TSH Arterial Blood Glucose Arterial Blood Ionized Calcium Urine WBC (Auto) Urine Creatinine Urine Total Protein Crossmatch 04/24/21 04/24/21 04/24/21 13:11 14:01 15:03 WBC RBC Hgb Hct MCH RDW Plt Count Seg Neuts % (Manual) Lymphocytes % (Manual) Nucleated RBC % Seg Neutrophils # Man Lymphocytes # (Manual) PT ABG pH POC ABG pCO2 POC ABG pO2 ABG pO2 ABG O2 Saturation ABG Base Excess ABG Hemoglobin ABG Oxyhemoglobin ABG Potassium ABG Chloride ABG Glucose Oxyhemoglobin Carboxyhemoglobin Sodium Potassium Chloride Carbon Dioxide BUN Creatinine Glucose POC Glucose 384 H 423 H 418 H Hemoglobin A1c Lactic Acid Calcium Phosphorus Magnesium Transferrin AST ALT Alkaline Phosphatase Total Creatine Kinase CK-MB (CK-2) Serum Total Protein Total Protein Albumin Uzzcq-3-Osufftnqc Naxpn-5-Eguqoaygj Gamma Globulins PEP Interpretation HDL Cholesterol TSH Arterial Blood Glucose Arterial Blood Ionized Calcium Urine WBC (Auto) Urine Creatinine Urine Total Protein Crossmatch 04/24/21 04/24/21 04/24/21 17:29 18:28 19:41 WBC RBC Hgb Hct MCH RDW Plt Count Seg Neuts % (Manual) Lymphocytes % (Manual) Nucleated RBC % Seg Neutrophils # Man Lymphocytes # (Manual) PT ABG pH POC ABG pCO2 POC ABG pO2 ABG pO2 ABG O2 Saturation ABG Base Excess ABG Hemoglobin ABG Oxyhemoglobin ABG Potassium ABG Chloride ABG Glucose Oxyhemoglobin Carboxyhemoglobin Sodium Potassium Chloride Carbon Dioxide BUN Creatinine Glucose POC Glucose 335 H 321 H Hemoglobin A1c Lactic Acid Calcium Phosphorus Magnesium Transferrin 112 L AST ALT Alkaline Phosphatase Total Creatine Kinase CK-MB (CK-2) Serum Total Protein Total Protein Albumin Qkeks-5-Juemzhoqh Oaeps-2-Snzwituwf Gamma Globulins PEP Interpretation HDL Cholesterol TSH Arterial Blood Glucose Arterial Blood Ionized Calcium Urine WBC (Auto) Urine Creatinine Urine Total Protein Crossmatch 04/24/21 04/25/21 04/25/21 22:33 01:28 02:28 WBC RBC Hgb Hct MCH RDW Plt Count Seg Neuts % (Manual) Lymphocytes % (Manual) Nucleated RBC % Seg Neutrophils # Man Lymphocytes # (Manual) PT ABG pH POC ABG pCO2 POC ABG pO2 ABG pO2 ABG O2 Saturation ABG Base Excess ABG Hemoglobin ABG Oxyhemoglobin ABG Potassium ABG Chloride ABG Glucose Oxyhemoglobin Carboxyhemoglobin Sodium Potassium Chloride Carbon Dioxide BUN Creatinine Glucose POC Glucose 349 H 283 H 247 H Hemoglobin A1c Lactic Acid Calcium Phosphorus Magnesium Transferrin AST ALT Alkaline Phosphatase Total Creatine Kinase CK-MB (CK-2) Serum Total Protein Total Protein Albumin Dbkcl-9-Pwprsqqzr Lghyr-4-Ylgciewyg Gamma Globulins PEP Interpretation HDL Cholesterol TSH Arterial Blood Glucose Arterial Blood Ionized Calcium Urine WBC (Auto) Urine Creatinine Urine Total Protein Crossmatch 04/25/21 04/25/21 04/25/21 03:25 04:22 05:40 WBC RBC Hgb Hct MCH RDW Plt Count Seg Neuts % (Manual) Lymphocytes % (Manual) Nucleated RBC % Seg Neutrophils # Man Lymphocytes # (Manual) PT ABG pH POC ABG pCO2 POC ABG pO2 ABG pO2 ABG O2 Saturation ABG Base Excess ABG Hemoglobin ABG Oxyhemoglobin ABG Potassium ABG Chloride ABG Glucose Oxyhemoglobin Carboxyhemoglobin Sodium Potassium Chloride Carbon Dioxide BUN Creatinine Glucose POC Glucose 196 H 207 H 204 H Hemoglobin A1c Lactic Acid Calcium Phosphorus Magnesium Transferrin AST ALT Alkaline Phosphatase Total Creatine Kinase CK-MB (CK-2) Serum Total Protein Total Protein Albumin Tsuby-3-Lhnpfxbvc Jkuxo-2-Xrrvdlsie Gamma Globulins PEP Interpretation HDL Cholesterol TSH Arterial Blood Glucose Arterial Blood Ionized Calcium Urine WBC (Auto) Urine Creatinine Urine Total Protein Crossmatch 04/25/21 04/25/21 04/25/21 05:45 06:43 07:37 WBC RBC Hgb Hct MCH 27 L RDW 17.0 H Plt Count 64 L Seg Neuts % (Manual) 84.0 H Lymphocytes % (Manual) 6.0 L Nucleated RBC % 1.0 H Seg Neutrophils # Man Lymphocytes # (Manual) 0.4 L PT ABG pH POC ABG pCO2 POC ABG pO2 ABG pO2 ABG O2 Saturation ABG Base Excess ABG Hemoglobin ABG Oxyhemoglobin ABG Potassium ABG Chloride ABG Glucose Oxyhemoglobin Carboxyhemoglobin Sodium Potassium Chloride Carbon Dioxide BUN Creatinine Glucose POC Glucose 238 H 201 H Hemoglobin A1c Lactic Acid Calcium Phosphorus Magnesium Transferrin AST ALT Alkaline Phosphatase Total Creatine Kinase CK-MB (CK-2) Serum Total Protein Total Protein Albumin Iocsy-9-Kojrygzku Jfzbp-8-Oyychmljt Gamma Globulins PEP Interpretation HDL Cholesterol TSH Arterial Blood Glucose Arterial Blood Ionized Calcium Urine WBC (Auto) Urine Creatinine Urine Total Protein Crossmatch 04/25/21 04/25/21 04/25/21 08:11 08:11 08:41 WBC RBC Hgb Hct MCH RDW Plt Count Seg Neuts % (Manual) Lymphocytes % (Manual) Nucleated RBC % Seg Neutrophils # Man Lymphocytes # (Manual) PT ABG pH POC ABG pCO2 POC ABG pO2 ABG pO2 ABG O2 Saturation ABG Base Excess ABG Hemoglobin ABG Oxyhemoglobin ABG Potassium ABG Chloride ABG Glucose Oxyhemoglobin Carboxyhemoglobin Sodium 148 H D Potassium Chloride 115.7 H Carbon Dioxide 21 L BUN 83 H Creatinine 3.6 H Glucose 247 H POC Glucose 220 H Hemoglobin A1c Lactic Acid Calcium Phosphorus Magnesium 2.50 H Transferrin AST 63 H ALT 62 H Alkaline Phosphatase 143 H Total Creatine Kinase CK-MB (CK-2) Serum Total Protein Total Protein 5.4 L Albumin 1.4 L Xabve-5-Rjgffkccl Kalgy-7-Ccndzqmmd Gamma Globulins PEP Interpretation HDL Cholesterol TSH Arterial Blood Glucose Arterial Blood Ionized Calcium Urine WBC (Auto) Urine Creatinine Urine Total Protein Crossmatch 04/25/21 04/25/21 04/25/21 09:22 10:31 11:44 WBC RBC Hgb Hct MCH RDW Plt Count Seg Neuts % (Manual) Lymphocytes % (Manual) Nucleated RBC % Seg Neutrophils # Man Lymphocytes # (Manual) PT ABG pH POC ABG pCO2 POC ABG pO2 ABG pO2 ABG O2 Saturation ABG Base Excess ABG Hemoglobin ABG Oxyhemoglobin ABG Potassium ABG Chloride ABG Glucose Oxyhemoglobin Carboxyhemoglobin Sodium Potassium Chloride Carbon Dioxide BUN Creatinine Glucose POC Glucose 228 H 215 H 191 H Hemoglobin A1c Lactic Acid Calcium Phosphorus Magnesium Transferrin AST ALT Alkaline Phosphatase Total Creatine Kinase CK-MB (CK-2) Serum Total Protein Total Protein Albumin Gkvqa-8-Xqlpaijvu Eqnfs-9-Jvqcalptu Gamma Globulins PEP Interpretation HDL Cholesterol TSH Arterial Blood Glucose Arterial Blood Ionized Calcium Urine WBC (Auto) Urine Creatinine Urine Total Protein Crossmatch 04/25/21 04/25/21 04/25/21 12:23 13:48 14:11 WBC RBC Hgb Hct MCH RDW Plt Count Seg Neuts % (Manual) Lymphocytes % (Manual) Nucleated RBC % Seg Neutrophils # Man Lymphocytes # (Manual) PT ABG pH POC ABG pCO2 POC ABG pO2 ABG pO2 ABG O2 Saturation ABG Base Excess ABG Hemoglobin ABG Oxyhemoglobin ABG Potassium ABG Chloride ABG Glucose Oxyhemoglobin Carboxyhemoglobin Sodium Potassium Chloride Carbon Dioxide BUN Creatinine Glucose POC Glucose 229 H 177 H 161 H Hemoglobin A1c Lactic Acid Calcium Phosphorus Magnesium Transferrin AST ALT Alkaline Phosphatase Total Creatine Kinase CK-MB (CK-2) Serum Total Protein Total Protein Albumin Vavbo-9-Mcbkzsjcj Qqblx-6-Csgpvazdf Gamma Globulins PEP Interpretation HDL Cholesterol TSH Arterial Blood Glucose Arterial Blood Ionized Calcium Urine WBC (Auto) Urine Creatinine Urine Total Protein Crossmatch 04/25/21 04/25/21 04/26/21 18:01 21:31 01:19 WBC RBC Hgb Hct MCH RDW Plt Count Seg Neuts % (Manual) Lymphocytes % (Manual) Nucleated RBC % Seg Neutrophils # Man Lymphocytes # (Manual) PT ABG pH POC ABG pCO2 POC ABG pO2 ABG pO2 ABG O2 Saturation ABG Base Excess ABG Hemoglobin ABG Oxyhemoglobin ABG Potassium ABG Chloride ABG Glucose Oxyhemoglobin Carboxyhemoglobin Sodium Potassium Chloride Carbon Dioxide BUN Creatinine Glucose POC Glucose 264 H 371 H 356 H Hemoglobin A1c Lactic Acid Calcium Phosphorus Magnesium Transferrin AST ALT Alkaline Phosphatase Total Creatine Kinase CK-MB (CK-2) Serum Total Protein Total Protein Albumin Qkgsh-0-Fszmhvezf Feinv-5-Zjciilbbt Gamma Globulins PEP Interpretation HDL Cholesterol TSH Arterial Blood Glucose Arterial Blood Ionized Calcium Urine WBC (Auto) Urine Creatinine Urine Total Protein Crossmatch 04/26/21 04/26/21 04/26/21 06:31 09:13 09:33 WBC RBC Hgb Hct MCH 27 L RDW 16.9 H Plt Count 58 L Seg Neuts % (Manual) 77.0 H Lymphocytes % (Manual) 4.0 L Nucleated RBC % 2.0 H Seg Neutrophils # Man Lymphocytes # (Manual) 0.3 L PT ABG pH POC ABG pCO2 POC ABG pO2 ABG pO2 ABG O2 Saturation ABG Base Excess ABG Hemoglobin ABG Oxyhemoglobin ABG Potassium ABG Chloride ABG Glucose Oxyhemoglobin Carboxyhemoglobin Sodium Potassium Chloride Carbon Dioxide BUN Creatinine Glucose POC Glucose 428 H 454 H Hemoglobin A1c Lactic Acid Calcium Phosphorus Magnesium Transferrin AST ALT Alkaline Phosphatase Total Creatine Kinase CK-MB (CK-2) Serum Total Protein Total Protein Albumin Eaapd-3-Ighnfpehe Tsytv-9-Ztflqgvjn Gamma Globulins PEP Interpretation HDL Cholesterol TSH Arterial Blood Glucose Arterial Blood Ionized Calcium Urine WBC (Auto) Urine Creatinine Urine Total Protein Crossmatch 04/26/21 04/26/21 04/26/21 09:33 09:33 11:00 WBC RBC Hgb Hct MCH RDW Plt Count Seg Neuts % (Manual) Lymphocytes % (Manual) Nucleated RBC % Seg Neutrophils # Man Lymphocytes # (Manual) PT ABG pH 7.281 L POC ABG pCO2 POC ABG pO2 66.4 L ABG pO2 ABG O2 Saturation ABG Base Excess ABG Hemoglobin 10.9 L ABG Oxyhemoglobin 91 L ABG Potassium ABG Chloride ABG Glucose 521 H Oxyhemoglobin Carboxyhemoglobin Sodium Potassium Chloride Carbon Dioxide 19 L BUN 98 H Creatinine 3.8 H Glucose 530 H* POC Glucose Hemoglobin A1c Lactic Acid Calcium 8.1 L Phosphorus 5.60 H D Magnesium Transferrin AST 60 H ALT 72 H Alkaline Phosphatase 168 H Total Creatine Kinase CK-MB (CK-2) Serum Total Protein Total Protein 4.6 L Albumin 1.7 L Vcenh-7-Duktmdkuu Plaol-7-Gngiqccwx Gamma Globulins PEP Interpretation HDL Cholesterol TSH Arterial Blood Glucose 521 H Arterial Blood Ionized Calcium Urine WBC (Auto) Urine Creatinine Urine Total Protein Crossmatch 04/26/21 04/26/21 04/26/21 12:36 15:39 16:18 WBC RBC Hgb Hct MCH RDW Plt Count Seg Neuts % (Manual) Lymphocytes % (Manual) Nucleated RBC % Seg Neutrophils # Man Lymphocytes # (Manual) PT ABG pH 7.275 L POC ABG pCO2 POC ABG pO2 63.4 L ABG pO2 ABG O2 Saturation ABG Base Excess ABG Hemoglobin 8.4 L ABG Oxyhemoglobin 89.5 L ABG Potassium ABG Chloride 108.0 H ABG Glucose 404 H Oxyhemoglobin Carboxyhemoglobin Sodium Potassium Chloride Carbon Dioxide BUN Creatinine Glucose POC Glucose 414 H 324 H Hemoglobin A1c Lactic Acid Calcium Phosphorus Magnesium Transferrin AST ALT Alkaline Phosphatase Total Creatine Kinase CK-MB (CK-2) Serum Total Protein Total Protein Albumin Gixzk-9-Oyhutpygj Dbmqd-2-Ducfjhbby Gamma Globulins PEP Interpretation HDL Cholesterol TSH Arterial Blood Glucose 404 H Arterial Blood Ionized Calcium Urine WBC (Auto) Urine Creatinine Urine Total Protein Crossmatch 04/26/21 04/27/21 04/27/21 21:14 00:07 05:47 WBC RBC Hgb Hct MCH RDW Plt Count Seg Neuts % (Manual) Lymphocytes % (Manual) Nucleated RBC % Seg Neutrophils # Man Lymphocytes # (Manual) PT ABG pH POC ABG pCO2 POC ABG pO2 ABG pO2 ABG O2 Saturation ABG Base Excess ABG Hemoglobin ABG Oxyhemoglobin ABG Potassium ABG Chloride ABG Glucose Oxyhemoglobin Carboxyhemoglobin Sodium Potassium Chloride Carbon Dioxide BUN Creatinine Glucose POC Glucose 242 H 282 H 214 H Hemoglobin A1c Lactic Acid Calcium Phosphorus Magnesium Transferrin AST ALT Alkaline Phosphatase Total Creatine Kinase CK-MB (CK-2) Serum Total Protein Total Protein Albumin Oqpxt-3-Qcmfdhntu Jzvan-3-Irwgkjlbi Gamma Globulins PEP Interpretation HDL Cholesterol TSH Arterial Blood Glucose Arterial Blood Ionized Calcium Urine WBC (Auto) Urine Creatinine Urine Total Protein Crossmatch 04/27/21 04/27/21 04/27/21 06:23 07:43 08:30 WBC RBC Hgb Hct MCH RDW Plt Count Seg Neuts % (Manual) Lymphocytes % (Manual) Nucleated RBC % Seg Neutrophils # Man Lymphocytes # (Manual) PT ABG pH 7.309 L POC ABG pCO2 POC ABG pO2 70.6 L ABG pO2 ABG O2 Saturation ABG Base Excess ABG Hemoglobin 9.16 L ABG Oxyhemoglobin 92.4 L ABG Potassium ABG Chloride ABG Glucose Oxyhemoglobin Carboxyhemoglobin Sodium Potassium Chloride 110.1 H Carbon Dioxide 15 L BUN 109 H Creatinine 4.3 H Glucose 218 H POC Glucose 187 H Hemoglobin A1c Lactic Acid Calcium Phosphorus Magnesium Transferrin AST 53 H ALT Alkaline Phosphatase 148 H Total Creatine Kinase 1000 H CK-MB (CK-2) Serum Total Protein Total Protein 5.2 L Albumin 1.2 L Amalx-0-Ajvkyrypm Czfjy-6-Pvhglbhka Gamma Globulins PEP Interpretation HDL Cholesterol TSH Arterial Blood Glucose Arterial Blood Ionized Calcium Urine WBC (Auto) Urine Creatinine Urine Total Protein Crossmatch 04/27/21 04/27/21 04/27/21 11:54 21:08 23:28 WBC RBC Hgb Hct MCH RDW Plt Count Seg Neuts % (Manual) Lymphocytes % (Manual) Nucleated RBC % Seg Neutrophils # Man Lymphocytes # (Manual) PT ABG pH POC ABG pCO2 POC ABG pO2 ABG pO2 ABG O2 Saturation ABG Base Excess ABG Hemoglobin ABG Oxyhemoglobin ABG Potassium ABG Chloride ABG Glucose Oxyhemoglobin Carboxyhemoglobin Sodium Potassium Chloride Carbon Dioxide BUN Creatinine Glucose POC Glucose 147 H 136 H 201 H Hemoglobin A1c Lactic Acid Calcium Phosphorus Magnesium Transferrin AST ALT Alkaline Phosphatase Total Creatine Kinase CK-MB (CK-2) Serum Total Protein Total Protein Albumin Vjrzs-6-Tjhyneqrd Czsyq-4-Pvritnakk Gamma Globulins PEP Interpretation HDL Cholesterol TSH Arterial Blood Glucose Arterial Blood Ionized Calcium Urine WBC (Auto) Urine Creatinine Urine Total Protein Crossmatch 04/28/21 04/28/21 04/28/21 04:00 04:00 05:00 WBC 12.6 H RBC 3.59 L Hgb 9.4 L Hct MCH 26 L RDW 16.6 H Plt Count 111 L Seg Neuts % (Manual) Lymphocytes % (Manual) 1.0 L Nucleated RBC % 4.0 H Seg Neutrophils # Man 11.6 H Lymphocytes # (Manual) 0.1 L PT 15.3 H ABG pH POC ABG pCO2 POC ABG pO2 ABG pO2 ABG O2 Saturation ABG Base Excess ABG Hemoglobin ABG Oxyhemoglobin ABG Potassium ABG Chloride ABG Glucose Oxyhemoglobin Carboxyhemoglobin Sodium 147 H Potassium 3.5 L D Chloride Carbon Dioxide BUN 79 H Creatinine 3.8 H Glucose 194 H POC Glucose Hemoglobin A1c Lactic Acid Calcium 8.1 L Phosphorus Magnesium Transferrin AST ALT Alkaline Phosphatase Total Creatine Kinase CK-MB (CK-2) Serum Total Protein Total Protein Albumin Plmzq-7-Oboecrslo Aqwqp-0-Datlcdgcr Gamma Globulins PEP Interpretation HDL Cholesterol TSH Arterial Blood Glucose Arterial Blood Ionized Calcium Urine WBC (Auto) Urine Creatinine Urine Total Protein Crossmatch 04/28/21 04/28/21 04/28/21 05:08 05:18 11:04 WBC RBC Hgb Hct MCH RDW Plt Count Seg Neuts % (Manual) Lymphocytes % (Manual) Nucleated RBC % Seg Neutrophils # Man Lymphocytes # (Manual) PT ABG pH POC ABG pCO2 POC ABG pO2 66.5 L ABG pO2 ABG O2 Saturation ABG Base Excess ABG Hemoglobin 9.7 L ABG Oxyhemoglobin 92.5 L ABG Potassium 3.2 L ABG Chloride ABG Glucose 200 H Oxyhemoglobin Carboxyhemoglobin Sodium Potassium Chloride Carbon Dioxide BUN Creatinine Glucose POC Glucose 183 H 174 H Hemoglobin A1c Lactic Acid Calcium Phosphorus Magnesium Transferrin AST ALT Alkaline Phosphatase Total Creatine Kinase CK-MB (CK-2) Serum Total Protein Total Protein Albumin Thwyd-8-Lstakbkmq Wprjp-1-Kqybangnz Gamma Globulins PEP Interpretation HDL Cholesterol TSH Arterial Blood Glucose 200 H Arterial Blood Ionized Calcium 4.5 L Urine WBC (Auto) Urine Creatinine Urine Total Protein Crossmatch 04/28/21 04/28/21 04/28/21 17:16 21:14 23:41 WBC RBC Hgb Hct MCH RDW Plt Count Seg Neuts % (Manual) Lymphocytes % (Manual) Nucleated RBC % Seg Neutrophils # Man Lymphocytes # (Manual) PT ABG pH POC ABG pCO2 POC ABG pO2 ABG pO2 ABG O2 Saturation ABG Base Excess ABG Hemoglobin ABG Oxyhemoglobin ABG Potassium ABG Chloride ABG Glucose Oxyhemoglobin Carboxyhemoglobin Sodium Potassium Chloride Carbon Dioxide BUN Creatinine Glucose POC Glucose 135 H 134 H 171 H Hemoglobin A1c Lactic Acid Calcium Phosphorus Magnesium Transferrin AST ALT Alkaline Phosphatase Total Creatine Kinase CK-MB (CK-2) Serum Total Protein Total Protein Albumin Antbc-2-Sojjhordr Gcxne-7-Djxeczrgh Gamma Globulins PEP Interpretation HDL Cholesterol TSH Arterial Blood Glucose Arterial Blood Ionized Calcium Urine WBC (Auto) Urine Creatinine Urine Total Protein Crossmatch 04/29/21 04/29/21 04/29/21 01:16 04:00 04:00 WBC 13.3 H RBC 3.12 L Hgb 8.3 L Hct 26.2 L MCH 27 L RDW 16.3 H Plt Count 132 L Seg Neuts % (Manual) Lymphocytes % (Manual) Nucleated RBC % Seg Neutrophils # Man Lymphocytes # (Manual) PT ABG pH POC ABG pCO2 POC ABG pO2 ABG pO2 ABG O2 Saturation ABG Base Excess ABG Hemoglobin ABG Oxyhemoglobin ABG Potassium ABG Chloride ABG Glucose Oxyhemoglobin Carboxyhemoglobin Sodium Potassium Chloride Carbon Dioxide BUN 63 H Creatinine 3.4 H Glucose 249 H POC Glucose 236 H Hemoglobin A1c Lactic Acid Calcium 8.2 L Phosphorus Magnesium Transferrin AST 61 H ALT 71 H Alkaline Phosphatase 170 H Total Creatine Kinase CK-MB (CK-2) Serum Total Protein Total Protein 5.1 L Albumin 1.6 L Vedsa-1-Ybnzfkybo Opkvk-1-Aunlgubgd Gamma Globulins PEP Interpretation HDL Cholesterol TSH Arterial Blood Glucose Arterial Blood Ionized Calcium Urine WBC (Auto) Urine Creatinine Urine Total Protein Crossmatch 04/29/21 04/29/21 04/29/21 11:35 13:30 16:01 WBC RBC Hgb Hct MCH RDW Plt Count Seg Neuts % (Manual) Lymphocytes % (Manual) Nucleated RBC % Seg Neutrophils # Man Lymphocytes # (Manual) PT ABG pH POC ABG pCO2 POC ABG pO2 ABG pO2 ABG O2 Saturation ABG Base Excess ABG Hemoglobin ABG Oxyhemoglobin ABG Potassium ABG Chloride ABG Glucose Oxyhemoglobin Carboxyhemoglobin Sodium Potassium Chloride Carbon Dioxide BUN Creatinine Glucose POC Glucose 320 H 297 H Hemoglobin A1c Lactic Acid Calcium Phosphorus Magnesium Transferrin AST ALT Alkaline Phosphatase Total Creatine Kinase CK-MB (CK-2) Serum Total Protein Total Protein Albumin Cfvty-8-Yyofabncl Jppqx-5-Wvilncssj Gamma Globulins PEP Interpretation HDL Cholesterol TSH Arterial Blood Glucose Arterial Blood Ionized Calcium Urine WBC (Auto) > 182.0 H Urine Creatinine Urine Total Protein Crossmatch 04/29/21 04/29/21 04/30/21 21:58 23:35 04:00 WBC 11.4 H RBC 3.27 L Hgb 8.7 L Hct 27.5 L MCH 27 L RDW 16.6 H Plt Count Seg Neuts % (Manual) Lymphocytes % (Manual) Nucleated RBC % Seg Neutrophils # Man Lymphocytes # (Manual) PT ABG pH POC ABG pCO2 POC ABG pO2 ABG pO2 ABG O2 Saturation ABG Base Excess ABG Hemoglobin ABG Oxyhemoglobin ABG Potassium ABG Chloride ABG Glucose Oxyhemoglobin Carboxyhemoglobin Sodium Potassium Chloride Carbon Dioxide BUN Creatinine Glucose POC Glucose 260 H 254 H Hemoglobin A1c Lactic Acid Calcium Phosphorus Magnesium Transferrin AST ALT Alkaline Phosphatase Total Creatine Kinase CK-MB (CK-2) Serum Total Protein Total Protein Albumin Ndwga-4-Ruqmpbqor Azhbg-9-Gqagwaoll Gamma Globulins PEP Interpretation HDL Cholesterol TSH Arterial Blood Glucose Arterial Blood Ionized Calcium Urine WBC (Auto) Urine Creatinine Urine Total Protein Crossmatch 04/30/21 04/30/21 04/30/21 04:00 05:17 05:31 WBC RBC Hgb Hct MCH RDW Plt Count Seg Neuts % (Manual) Lymphocytes % (Manual) Nucleated RBC % Seg Neutrophils # Man Lymphocytes # (Manual) PT ABG pH 7.452 H POC ABG pCO2 30.5 L POC ABG pO2 54.5 L ABG pO2 ABG O2 Saturation ABG Base Excess ABG Hemoglobin 10.1 L ABG Oxyhemoglobin 87.4 L ABG Potassium 2.9 L ABG Chloride ABG Glucose 305 H Oxyhemoglobin Carboxyhemoglobin Sodium Potassium 3.1 L Chloride Carbon Dioxide BUN 79 H Creatinine 3.9 H Glucose 275 H POC Glucose 267 H Hemoglobin A1c Lactic Acid Calcium Phosphorus 5.60 H D Magnesium Transferrin AST ALT Alkaline Phosphatase Total Creatine Kinase CK-MB (CK-2) Serum Total Protein Total Protein Albumin Oschv-9-Ihudurupg Cukzy-7-Ndyhpagyg Gamma Globulins PEP Interpretation HDL Cholesterol TSH Arterial Blood Glucose 305 H Arterial Blood Ionized Calcium Urine WBC (Auto) Urine Creatinine Urine Total Protein Crossmatch 04/30/21 04/30/21 04/30/21 12:31 17:50 22:24 WBC RBC Hgb Hct MCH RDW Plt Count Seg Neuts % (Manual) Lymphocytes % (Manual) Nucleated RBC % Seg Neutrophils # Man Lymphocytes # (Manual) PT ABG pH POC ABG pCO2 POC ABG pO2 ABG pO2 ABG O2 Saturation ABG Base Excess ABG Hemoglobin ABG Oxyhemoglobin ABG Potassium ABG Chloride ABG Glucose Oxyhemoglobin Carboxyhemoglobin Sodium Potassium Chloride Carbon Dioxide BUN Creatinine Glucose POC Glucose 259 H 161 H 146 H Hemoglobin A1c Lactic Acid Calcium Phosphorus Magnesium Transferrin AST ALT Alkaline Phosphatase Total Creatine Kinase CK-MB (CK-2) Serum Total Protein Total Protein Albumin Zberx-5-Teokwssrd Aksoj-4-Pdekbhybz Gamma Globulins PEP Interpretation HDL Cholesterol TSH Arterial Blood Glucose Arterial Blood Ionized Calcium Urine WBC (Auto) Urine Creatinine Urine Total Protein Crossmatch 05/01/21 05/01/21 05/01/21 00:09 03:30 04:00 WBC 12.0 H RBC 3.08 L Hgb 8.1 L Hct 25.6 L MCH 26 L RDW 16.3 H Plt Count Seg Neuts % (Manual) Lymphocytes % (Manual) Nucleated RBC % Seg Neutrophils # Man Lymphocytes # (Manual) PT ABG pH 7.493 H POC ABG pCO2 POC ABG pO2 ABG pO2 ABG O2 Saturation ABG Base Excess ABG Hemoglobin 9.3 L ABG Oxyhemoglobin ABG Potassium ABG Chloride ABG Glucose 167 H Oxyhemoglobin Carboxyhemoglobin 0.4 L Sodium Potassium Chloride Carbon Dioxide BUN Creatinine Glucose POC Glucose 149 H Hemoglobin A1c Lactic Acid Calcium Phosphorus Magnesium Transferrin AST ALT Alkaline Phosphatase Total Creatine Kinase CK-MB (CK-2) Serum Total Protein Total Protein Albumin Hqdin-9-Ppdbxuhsx Pgnki-4-Rdpobfgjf Gamma Globulins PEP Interpretation HDL Cholesterol TSH Arterial Blood Glucose 167 H Arterial Blood Ionized Calcium Urine WBC (Auto) Urine Creatinine Urine Total Protein Crossmatch 05/01/21 05/01/21 05/01/21 04:00 05:48 11:49 WBC RBC Hgb Hct MCH RDW Plt Count Seg Neuts % (Manual) Lymphocytes % (Manual) Nucleated RBC % Seg Neutrophils # Man Lymphocytes # (Manual) PT ABG pH POC ABG pCO2 POC ABG pO2 ABG pO2 ABG O2 Saturation ABG Base Excess ABG Hemoglobin ABG Oxyhemoglobin ABG Potassium ABG Chloride ABG Glucose Oxyhemoglobin Carboxyhemoglobin Sodium Potassium 3.5 L Chloride Carbon Dioxide BUN 62 H Creatinine 3.3 H Glucose 179 H POC Glucose 197 H 167 H Hemoglobin A1c Lactic Acid Calcium 8.3 L Phosphorus Magnesium Transferrin AST ALT Alkaline Phosphatase Total Creatine Kinase CK-MB (CK-2) Serum Total Protein Total Protein Albumin Pdeip-0-Unnbkexca Rvdrh-0-Ejjvmrvck Gamma Globulins PEP Interpretation HDL Cholesterol TSH Arterial Blood Glucose Arterial Blood Ionized Calcium Urine WBC (Auto) Urine Creatinine Urine Total Protein Crossmatch 05/01/21 05/01/21 05/02/21 16:24 23:25 04:00 WBC 14.2 H RBC 2.61 L Hgb 6.9 L Hct 22.1 L MCH 27 L RDW 16.1 H Plt Count Seg Neuts % (Manual) Lymphocytes % (Manual) Nucleated RBC % Seg Neutrophils # Man Lymphocytes # (Manual) PT ABG pH POC ABG pCO2 POC ABG pO2 ABG pO2 ABG O2 Saturation ABG Base Excess ABG Hemoglobin ABG Oxyhemoglobin ABG Potassium ABG Chloride ABG Glucose Oxyhemoglobin Carboxyhemoglobin Sodium Potassium Chloride Carbon Dioxide BUN Creatinine Glucose POC Glucose 157 H 147 H Hemoglobin A1c Lactic Acid Calcium Phosphorus Magnesium Transferrin AST ALT Alkaline Phosphatase Total Creatine Kinase CK-MB (CK-2) Serum Total Protein Total Protein Albumin Sbhot-4-Vqhmxakoj Vlqim-0-Hjdaddokx Gamma Globulins PEP Interpretation HDL Cholesterol TSH Arterial Blood Glucose Arterial Blood Ionized Calcium Urine WBC (Auto) Urine Creatinine Urine Total Protein Crossmatch 05/02/21 05/02/21 05/02/21 04:00 04:34 05:23 WBC RBC Hgb Hct MCH RDW Plt Count Seg Neuts % (Manual) Lymphocytes % (Manual) Nucleated RBC % Seg Neutrophils # Man Lymphocytes # (Manual) PT ABG pH 7.487 H POC ABG pCO2 POC ABG pO2 78.6 L ABG pO2 ABG O2 Saturation ABG Base Excess ABG Hemoglobin 11.5 L ABG Oxyhemoglobin ABG Potassium ABG Chloride ABG Glucose 122 H Oxyhemoglobin Carboxyhemoglobin Sodium Potassium Chloride Carbon Dioxide BUN 49 H Creatinine 2.8 H Glucose 117 H POC Glucose 119 H Hemoglobin A1c Lactic Acid Calcium Phosphorus Magnesium Transferrin AST ALT Alkaline Phosphatase Total Creatine Kinase CK-MB (CK-2) Serum Total Protein Total Protein Albumin Dflga-9-Ruscomqco Mkuor-4-Hgkdzojij Gamma Globulins PEP Interpretation HDL Cholesterol TSH Arterial Blood Glucose 122 H Arterial Blood Ionized Calcium Urine WBC (Auto) Urine Creatinine Urine Total Protein Crossmatch 05/02/21 05/02/21 05/02/21 12:00 12:04 17:29 WBC RBC Hgb Hct MCH RDW Plt Count Seg Neuts % (Manual) Lymphocytes % (Manual) Nucleated RBC % Seg Neutrophils # Man Lymphocytes # (Manual) PT ABG pH POC ABG pCO2 POC ABG pO2 ABG pO2 ABG O2 Saturation ABG Base Excess ABG Hemoglobin ABG Oxyhemoglobin ABG Potassium ABG Chloride ABG Glucose Oxyhemoglobin Carboxyhemoglobin Sodium Potassium Chloride Carbon Dioxide BUN Creatinine Glucose POC Glucose 115 H 120 H Hemoglobin A1c Lactic Acid Calcium Phosphorus Magnesium Transferrin AST ALT Alkaline Phosphatase Total Creatine Kinase CK-MB (CK-2) Serum Total Protein Total Protein Albumin Iddpj-9-Cfiyaflyo Mnbyu-8-Uyzobkiwi Gamma Globulins PEP Interpretation HDL Cholesterol TSH Arterial Blood Glucose Arterial Blood Ionized Calcium Urine WBC (Auto) Urine Creatinine Urine Total Protein Crossmatch See Detail 05/02/21 05/03/21 05/03/21 23:36 04:00 04:00 WBC 13.9 H RBC 3.22 L Hgb 8.7 L Hct 27.4 L MCH 27 L RDW 15.8 H Plt Count Seg Neuts % (Manual) Lymphocytes % (Manual) Nucleated RBC % Seg Neutrophils # Man Lymphocytes # (Manual) PT ABG pH POC ABG pCO2 POC ABG pO2 ABG pO2 ABG O2 Saturation ABG Base Excess ABG Hemoglobin ABG Oxyhemoglobin ABG Potassium ABG Chloride ABG Glucose Oxyhemoglobin Carboxyhemoglobin Sodium 146 H Potassium 3.5 L Chloride 107.5 H Carbon Dioxide BUN 40 H Creatinine 2.5 H Glucose 104 H POC Glucose 130 H Hemoglobin A1c Lactic Acid Calcium Phosphorus Magnesium Transferrin AST 53 H ALT Alkaline Phosphatase 149 H Total Creatine Kinase CK-MB (CK-2) Serum Total Protein Total Protein 5.2 L Albumin 1.5 L Kllxr-5-Jlilobqex Lfgzs-2-Bhzorpqyj Gamma Globulins PEP Interpretation HDL Cholesterol TSH Arterial Blood Glucose Arterial Blood Ionized Calcium Urine WBC (Auto) Urine Creatinine Urine Total Protein Crossmatch 05/03/21 05/04/21 05/04/21 17:26 01:24 04:48 WBC 14.3 H RBC 3.14 L Hgb 8.5 L Hct 26.3 L MCH 27 L RDW 15.8 H Plt Count Seg Neuts % (Manual) Lymphocytes % (Manual) Nucleated RBC % Seg Neutrophils # Man Lymphocytes # (Manual) PT ABG pH POC ABG pCO2 POC ABG pO2 ABG pO2 ABG O2 Saturation ABG Base Excess ABG Hemoglobin ABG Oxyhemoglobin ABG Potassium ABG Chloride ABG Glucose Oxyhemoglobin Carboxyhemoglobin Sodium Potassium Chloride Carbon Dioxide BUN Creatinine Glucose POC Glucose 123 H 146 H Hemoglobin A1c Lactic Acid Calcium Phosphorus Magnesium Transferrin AST ALT Alkaline Phosphatase Total Creatine Kinase CK-MB (CK-2) Serum Total Protein Total Protein Albumin Mfomi-8-Jlcypybgq Ffpot-5-Kmfkigpvt Gamma Globulins PEP Interpretation HDL Cholesterol TSH Arterial Blood Glucose Arterial Blood Ionized Calcium Urine WBC (Auto) Urine Creatinine Urine Total Protein Crossmatch 05/04/21 05/04/21 05/04/21 04:48 05:15 11:24 WBC RBC Hgb Hct MCH RDW Plt Count Seg Neuts % (Manual) Lymphocytes % (Manual) Nucleated RBC % Seg Neutrophils # Man Lymphocytes # (Manual) PT ABG pH POC ABG pCO2 POC ABG pO2 ABG pO2 ABG O2 Saturation ABG Base Excess ABG Hemoglobin ABG Oxyhemoglobin ABG Potassium ABG Chloride ABG Glucose Oxyhemoglobin Carboxyhemoglobin Sodium Potassium 3.5 L Chloride Carbon Dioxide BUN 58 H Creatinine 3.4 H Glucose 168 H POC Glucose 162 H 145 H Hemoglobin A1c Lactic Acid Calcium Phosphorus 5.30 H Magnesium Transferrin AST ALT Alkaline Phosphatase Total Creatine Kinase CK-MB (CK-2) Serum Total Protein Total Protein Albumin Vcghb-9-Ftimwvuhh Ujlwv-1-Wdgynlgut Gamma Globulins PEP Interpretation HDL Cholesterol 24 L TSH Arterial Blood Glucose Arterial Blood Ionized Calcium Urine WBC (Auto) Urine Creatinine Urine Total Protein Crossmatch 05/04/21 05/04/21 05/05/21 16:01 23:32 04:00 WBC RBC Hgb Hct MCH RDW Plt Count Seg Neuts % (Manual) Lymphocytes % (Manual) Nucleated RBC % Seg Neutrophils # Man Lymphocytes # (Manual) PT ABG pH POC ABG pCO2 POC ABG pO2 ABG pO2 ABG O2 Saturation ABG Base Excess ABG Hemoglobin ABG Oxyhemoglobin ABG Potassium ABG Chloride ABG Glucose Oxyhemoglobin Carboxyhemoglobin Sodium Potassium 3.4 L Chloride Carbon Dioxide BUN 43 H Creatinine 2.7 H Glucose 124 H POC Glucose 148 H 134 H Hemoglobin A1c Lactic Acid Calcium 8.2 L Phosphorus Magnesium Transferrin AST ALT Alkaline Phosphatase Total Creatine Kinase CK-MB (CK-2) Serum Total Protein Total Protein Albumin Slnag-0-Akkmkvect Urjas-3-Nuirxkcpa Gamma Globulins PEP Interpretation HDL Cholesterol TSH Arterial Blood Glucose Arterial Blood Ionized Calcium Urine WBC (Auto) Urine Creatinine Urine Total Protein Crossmatch 05/05/21 05/06/21 05/06/21 05:14 00:01 04:00 WBC RBC Hgb Hct MCH RDW Plt Count Seg Neuts % (Manual) Lymphocytes % (Manual) Nucleated RBC % Seg Neutrophils # Man Lymphocytes # (Manual) PT ABG pH POC ABG pCO2 POC ABG pO2 ABG pO2 ABG O2 Saturation ABG Base Excess ABG Hemoglobin ABG Oxyhemoglobin ABG Potassium ABG Chloride ABG Glucose Oxyhemoglobin Carboxyhemoglobin Sodium Potassium 3.2 L Chloride Carbon Dioxide BUN 56 H Creatinine 3.0 H Glucose 110 H POC Glucose 120 H 120 H Hemoglobin A1c Lactic Acid Calcium 7.8 L Phosphorus 4.60 H Magnesium Transferrin AST ALT Alkaline Phosphatase Total Creatine Kinase CK-MB (CK-2) Serum Total Protein Total Protein Albumin Kndyb-5-Tpuheypcx Svkjw-9-Xlxbqvosd Gamma Globulins PEP Interpretation HDL Cholesterol TSH Arterial Blood Glucose Arterial Blood Ionized Calcium Urine WBC (Auto) Urine Creatinine Urine Total Protein Crossmatch 05/06/21 05/06/21 05/06/21 04:27 05:15 17:37 WBC RBC 3.03 L Hgb 8.3 L Hct 25.4 L MCH 27 L RDW Plt Count Seg Neuts % (Manual) Lymphocytes % (Manual) Nucleated RBC % Seg Neutrophils # Man Lymphocytes # (Manual) PT ABG pH POC ABG pCO2 POC ABG pO2 ABG pO2 ABG O2 Saturation ABG Base Excess ABG Hemoglobin ABG Oxyhemoglobin ABG Potassium ABG Chloride ABG Glucose Oxyhemoglobin Carboxyhemoglobin Sodium Potassium Chloride Carbon Dioxide BUN Creatinine Glucose POC Glucose 137 H 132 H Hemoglobin A1c Lactic Acid Calcium Phosphorus Magnesium Transferrin AST ALT Alkaline Phosphatase Total Creatine Kinase CK-MB (CK-2) Serum Total Protein Total Protein Albumin Uvxia-0-Dxqoiqhel Zjhdd-2-Qiypxceph Gamma Globulins PEP Interpretation HDL Cholesterol TSH Arterial Blood Glucose Arterial Blood Ionized Calcium Urine WBC (Auto) Urine Creatinine Urine Total Protein Crossmatch 05/07/21 05/07/21 05/07/21 00:30 04:23 04:23 WBC RBC Hgb Hct MCH RDW Plt Count Seg Neuts % (Manual) Lymphocytes % (Manual) Nucleated RBC % Seg Neutrophils # Man Lymphocytes # (Manual) PT ABG pH POC ABG pCO2 POC ABG pO2 ABG pO2 ABG O2 Saturation ABG Base Excess ABG Hemoglobin ABG Oxyhemoglobin ABG Potassium ABG Chloride ABG Glucose Oxyhemoglobin Carboxyhemoglobin Sodium Potassium 3.4 L Chloride 107.1 H Carbon Dioxide BUN 28 H Creatinine 1.9 H Glucose 165 H POC Glucose 121 H Hemoglobin A1c Lactic Acid Calcium 8.2 L Phosphorus Magnesium 1.60 L Transferrin AST ALT Alkaline Phosphatase Total Creatine Kinase CK-MB (CK-2) Serum Total Protein Total Protein Albumin Lwacn-9-Olyvidnud Lhuky-8-Vediklgas Gamma Globulins PEP Interpretation HDL Cholesterol TSH Arterial Blood Glucose Arterial Blood Ionized Calcium Urine WBC (Auto) Urine Creatinine Urine Total Protein Crossmatch 05/07/21 05/07/21 05/07/21 05:30 11:37 17:28 WBC RBC Hgb Hct MCH RDW Plt Count Seg Neuts % (Manual) Lymphocytes % (Manual) Nucleated RBC % Seg Neutrophils # Man Lymphocytes # (Manual) PT ABG pH POC ABG pCO2 POC ABG pO2 ABG pO2 ABG O2 Saturation ABG Base Excess ABG Hemoglobin ABG Oxyhemoglobin ABG Potassium ABG Chloride ABG Glucose Oxyhemoglobin Carboxyhemoglobin Sodium Potassium Chloride Carbon Dioxide BUN Creatinine Glucose POC Glucose 205 H 148 H 170 H Hemoglobin A1c Lactic Acid Calcium Phosphorus Magnesium Transferrin AST ALT Alkaline Phosphatase Total Creatine Kinase CK-MB (CK-2) Serum Total Protein Total Protein Albumin Tumlf-2-Ekrjgyrzr Otthn-2-Mfxajlglp Gamma Globulins PEP Interpretation HDL Cholesterol TSH Arterial Blood Glucose Arterial Blood Ionized Calcium Urine WBC (Auto) Urine Creatinine Urine Total Protein Crossmatch 05/07/21 05/08/21 05/08/21 23:57 05:12 05:12 WBC 11.2 H RBC 3.01 L Hgb 8.2 L Hct 25.5 L MCH 27 L RDW 15.4 H Plt Count Seg Neuts % (Manual) Lymphocytes % (Manual) Nucleated RBC % Seg Neutrophils # Man Lymphocytes # (Manual) PT ABG pH POC ABG pCO2 POC ABG pO2 ABG pO2 ABG O2 Saturation ABG Base Excess ABG Hemoglobin ABG Oxyhemoglobin ABG Potassium ABG Chloride ABG Glucose Oxyhemoglobin Carboxyhemoglobin Sodium Potassium 3.4 L Chloride Carbon Dioxide BUN 37 H Creatinine 2.1 H Glucose 160 H POC Glucose 172 H Hemoglobin A1c Lactic Acid Calcium 8.3 L Phosphorus Magnesium Transferrin AST ALT Alkaline Phosphatase Total Creatine Kinase CK-MB (CK-2) Serum Total Protein Total Protein Albumin Qubvu-9-Ynslrhowy Mazeh-5-Bdwoqxkxs Gamma Globulins PEP Interpretation HDL Cholesterol TSH Arterial Blood Glucose Arterial Blood Ionized Calcium Urine WBC (Auto) Urine Creatinine Urine Total Protein Crossmatch 05/08/21 05/08/21 05/08/21 05:20 09:34 11:35 WBC RBC Hgb Hct MCH RDW Plt Count Seg Neuts % (Manual) Lymphocytes % (Manual) Nucleated RBC % Seg Neutrophils # Man Lymphocytes # (Manual) PT ABG pH POC ABG pCO2 POC ABG pO2 ABG pO2 ABG O2 Saturation ABG Base Excess ABG Hemoglobin ABG Oxyhemoglobin ABG Potassium ABG Chloride ABG Glucose Oxyhemoglobin Carboxyhemoglobin Sodium Potassium Chloride Carbon Dioxide BUN Creatinine Glucose POC Glucose 148 H 208 H Hemoglobin A1c Lactic Acid Calcium Phosphorus Magnesium Transferrin AST ALT Alkaline Phosphatase Total Creatine Kinase CK-MB (CK-2) Serum Total Protein Total Protein Albumin Iaphz-7-Zeoaccvni Bukzt-7-Nhelzymvb Gamma Globulins PEP Interpretation HDL Cholesterol TSH Arterial Blood Glucose Arterial Blood Ionized Calcium Urine WBC (Auto) Urine Creatinine 56.0 H Urine Total Protein Crossmatch 05/08/21 05/08/21 05/09/21 16:55 23:57 05:30 WBC 12.8 H RBC 2.98 L Hgb 8.1 L Hct 25.4 L MCH 27 L RDW 15.4 H Plt Count Seg Neuts % (Manual) Lymphocytes % (Manual) Nucleated RBC % Seg Neutrophils # Man Lymphocytes # (Manual) PT ABG pH POC ABG pCO2 POC ABG pO2 ABG pO2 ABG O2 Saturation ABG Base Excess ABG Hemoglobin ABG Oxyhemoglobin ABG Potassium ABG Chloride ABG Glucose Oxyhemoglobin Carboxyhemoglobin Sodium Potassium Chloride Carbon Dioxide BUN Creatinine Glucose POC Glucose 179 H 183 H Hemoglobin A1c Lactic Acid Calcium Phosphorus Magnesium Transferrin AST ALT Alkaline Phosphatase Total Creatine Kinase CK-MB (CK-2) Serum Total Protein Total Protein Albumin Opjnz-8-Zkgncengd Wtgqb-5-Oaumocjak Gamma Globulins PEP Interpretation HDL Cholesterol TSH Arterial Blood Glucose Arterial Blood Ionized Calcium Urine WBC (Auto) Urine Creatinine Urine Total Protein Crossmatch 05/09/21 05/09/21 05/09/21 05:30 05:31 11:24 WBC RBC Hgb Hct MCH RDW Plt Count Seg Neuts % (Manual) Lymphocytes % (Manual) Nucleated RBC % Seg Neutrophils # Man Lymphocytes # (Manual) PT ABG pH POC ABG pCO2 POC ABG pO2 ABG pO2 ABG O2 Saturation ABG Base Excess ABG Hemoglobin ABG Oxyhemoglobin ABG Potassium ABG Chloride ABG Glucose Oxyhemoglobin Carboxyhemoglobin Sodium 150 H Potassium 3.2 L Chloride 110.2 H Carbon Dioxide BUN 37 H Creatinine 1.8 H Glucose 191 H POC Glucose 120 H 197 H Hemoglobin A1c Lactic Acid Calcium Phosphorus Magnesium Transferrin AST ALT Alkaline Phosphatase Total Creatine Kinase CK-MB (CK-2) Serum Total Protein Total Protein Albumin Njbvm-9-Drjaiwvtd Ivlaw-9-Vwleutbvj Gamma Globulins PEP Interpretation HDL Cholesterol TSH Arterial Blood Glucose Arterial Blood Ionized Calcium Urine WBC (Auto) Urine Creatinine Urine Total Protein Crossmatch 05/09/21 05/09/21 05/10/21 15:49 23:42 05:00 WBC RBC 2.99 L Hgb 8.2 L Hct 25.6 L MCH RDW 15.4 H Plt Count 456 H Seg Neuts % (Manual) Lymphocytes % (Manual) Nucleated RBC % Seg Neutrophils # Man Lymphocytes # (Manual) PT ABG pH POC ABG pCO2 POC ABG pO2 ABG pO2 ABG O2 Saturation ABG Base Excess ABG Hemoglobin ABG Oxyhemoglobin ABG Potassium ABG Chloride ABG Glucose Oxyhemoglobin Carboxyhemoglobin Sodium Potassium Chloride Carbon Dioxide BUN Creatinine Glucose POC Glucose 318 H 152 H Hemoglobin A1c Lactic Acid Calcium Phosphorus Magnesium Transferrin AST ALT Alkaline Phosphatase Total Creatine Kinase CK-MB (CK-2) Serum Total Protein Total Protein Albumin Kbvvz-7-Juoevwvnh Ghnoj-4-Agfdxqtqj Gamma Globulins PEP Interpretation HDL Cholesterol TSH Arterial Blood Glucose Arterial Blood Ionized Calcium Urine WBC (Auto) Urine Creatinine Urine Total Protein Crossmatch 05/10/21 05/10/21 05/10/21 05:00 05:30 12:08 WBC RBC Hgb Hct MCH RDW Plt Count Seg Neuts % (Manual) Lymphocytes % (Manual) Nucleated RBC % Seg Neutrophils # Man Lymphocytes # (Manual) PT ABG pH POC ABG pCO2 POC ABG pO2 ABG pO2 ABG O2 Saturation ABG Base Excess ABG Hemoglobin ABG Oxyhemoglobin ABG Potassium ABG Chloride ABG Glucose Oxyhemoglobin Carboxyhemoglobin Sodium 148 H Potassium 3.4 L Chloride 110.5 H Carbon Dioxide BUN 36 H Creatinine 1.6 H Glucose 185 H POC Glucose 168 H 193 H Hemoglobin A1c Lactic Acid Calcium Phosphorus Magnesium Transferrin AST ALT Alkaline Phosphatase Total Creatine Kinase CK-MB (CK-2) Serum Total Protein Total Protein Albumin Prwlc-3-Hvxdqtxtx Hxmab-3-Fcdikpnrz Gamma Globulins PEP Interpretation HDL Cholesterol TSH Arterial Blood Glucose Arterial Blood Ionized Calcium Urine WBC (Auto) Urine Creatinine Urine Total Protein Crossmatch 05/10/21 05/10/21 05/11/21 18:02 23:25 05:40 WBC RBC 3.11 L Hgb 8.3 L Hct 26.6 L MCH 27 L RDW 15.7 H Plt Count 489 H Seg Neuts % (Manual) Lymphocytes % (Manual) Nucleated RBC % Seg Neutrophils # Man Lymphocytes # (Manual) PT ABG pH POC ABG pCO2 POC ABG pO2 ABG pO2 ABG O2 Saturation ABG Base Excess ABG Hemoglobin ABG Oxyhemoglobin ABG Potassium ABG Chloride ABG Glucose Oxyhemoglobin Carboxyhemoglobin Sodium Potassium Chloride Carbon Dioxide BUN Creatinine Glucose POC Glucose 205 H 171 H Hemoglobin A1c Lactic Acid Calcium Phosphorus Magnesium Transferrin AST ALT Alkaline Phosphatase Total Creatine Kinase CK-MB (CK-2) Serum Total Protein Total Protein Albumin Jnhpz-0-Idxzlnelu Rpnag-9-Tvuzlifno Gamma Globulins PEP Interpretation HDL Cholesterol TSH Arterial Blood Glucose Arterial Blood Ionized Calcium Urine WBC (Auto) Urine Creatinine Urine Total Protein Crossmatch 05/11/21 05/11/21 05/11/21 05:40 11:45 18:23 WBC RBC Hgb Hct MCH RDW Plt Count Seg Neuts % (Manual) Lymphocytes % (Manual) Nucleated RBC % Seg Neutrophils # Man Lymphocytes # (Manual) PT ABG pH POC ABG pCO2 POC ABG pO2 ABG pO2 ABG O2 Saturation ABG Base Excess ABG Hemoglobin ABG Oxyhemoglobin ABG Potassium ABG Chloride ABG Glucose Oxyhemoglobin Carboxyhemoglobin Sodium 149 H Potassium Chloride 112.0 H Carbon Dioxide BUN 36 H Creatinine 1.4 H Glucose 164 H POC Glucose 176 H 203 H Hemoglobin A1c Lactic Acid Calcium Phosphorus Magnesium Transferrin AST ALT Alkaline Phosphatase Total Creatine Kinase CK-MB (CK-2) Serum Total Protein Total Protein Albumin Ervud-4-Dxqmsnamb Ihtlj-8-Attpzfzlh Gamma Globulins PEP Interpretation HDL Cholesterol TSH Arterial Blood Glucose Arterial Blood Ionized Calcium Urine WBC (Auto) Urine Creatinine Urine Total Protein Crossmatch 05/12/21 05/12/21 05/12/21 00:30 04:10 04:10 WBC RBC 3.13 L Hgb 8.4 L Hct 26.6 L MCH 27 L RDW 15.7 H Plt Count 496 H Seg Neuts % (Manual) Lymphocytes % (Manual) Nucleated RBC % Seg Neutrophils # Man Lymphocytes # (Manual) PT ABG pH POC ABG pCO2 POC ABG pO2 ABG pO2 ABG O2 Saturation ABG Base Excess ABG Hemoglobin ABG Oxyhemoglobin ABG Potassium ABG Chloride ABG Glucose Oxyhemoglobin Carboxyhemoglobin Sodium Potassium Chloride Carbon Dioxide BUN 36 H Creatinine 1.3 H Glucose 182 H POC Glucose 161 H Hemoglobin A1c Lactic Acid Calcium 8.3 L Phosphorus Magnesium Transferrin AST ALT Alkaline Phosphatase Total Creatine Kinase CK-MB (CK-2) Serum Total Protein Total Protein Albumin Oigsu-8-Whnnewabt Mttor-3-Feyjszsbu Gamma Globulins PEP Interpretation HDL Cholesterol TSH Arterial Blood Glucose Arterial Blood Ionized Calcium Urine WBC (Auto) Urine Creatinine Urine Total Protein Crossmatch 05/12/21 05/12/21 05/12/21 05:24 11:50 17:45 WBC RBC Hgb Hct MCH RDW Plt Count Seg Neuts % (Manual) Lymphocytes % (Manual) Nucleated RBC % Seg Neutrophils # Man Lymphocytes # (Manual) PT ABG pH POC ABG pCO2 POC ABG pO2 ABG pO2 ABG O2 Saturation ABG Base Excess ABG Hemoglobin ABG Oxyhemoglobin ABG Potassium ABG Chloride ABG Glucose Oxyhemoglobin Carboxyhemoglobin Sodium Potassium Chloride Carbon Dioxide BUN Creatinine Glucose POC Glucose 177 H 180 H 187 H Hemoglobin A1c Lactic Acid Calcium Phosphorus Magnesium Transferrin AST ALT Alkaline Phosphatase Total Creatine Kinase CK-MB (CK-2) Serum Total Protein Total Protein Albumin Eghjs-4-Vbmlvxsuy Odwtm-8-Inrakfztf Gamma Globulins PEP Interpretation HDL Cholesterol TSH Arterial Blood Glucose Arterial Blood Ionized Calcium Urine WBC (Auto) Urine Creatinine Urine Total Protein Crossmatch 05/12/21 05/13/21 05/13/21 23:20 04:24 04:24 WBC RBC 3.10 L Hgb 8.5 L Hct 26.3 L MCH RDW 15.6 H Plt Count 503 H Seg Neuts % (Manual) Lymphocytes % (Manual) Nucleated RBC % Seg Neutrophils # Man Lymphocytes # (Manual) PT ABG pH POC ABG pCO2 POC ABG pO2 ABG pO2 ABG O2 Saturation ABG Base Excess ABG Hemoglobin ABG Oxyhemoglobin ABG Potassium ABG Chloride ABG Glucose Oxyhemoglobin Carboxyhemoglobin Sodium Potassium Chloride Carbon Dioxide BUN 30 H Creatinine Glucose 138 H POC Glucose 142 H Hemoglobin A1c Lactic Acid Calcium 8.3 L Phosphorus Magnesium 1.60 L Transferrin AST ALT Alkaline Phosphatase Total Creatine Kinase CK-MB (CK-2) Serum Total Protein Total Protein Albumin Hsdqg-3-Lhipilmyo Sdalt-9-Wfvlnxnyi Gamma Globulins PEP Interpretation HDL Cholesterol TSH Arterial Blood Glucose Arterial Blood Ionized Calcium Urine WBC (Auto) Urine Creatinine Urine Total Protein Crossmatch 05/13/21 05/13/21 05/13/21 05:29 11:44 16:52 WBC RBC Hgb Hct MCH RDW Plt Count Seg Neuts % (Manual) Lymphocytes % (Manual) Nucleated RBC % Seg Neutrophils # Man Lymphocytes # (Manual) PT ABG pH POC ABG pCO2 POC ABG pO2 ABG pO2 ABG O2 Saturation ABG Base Excess ABG Hemoglobin ABG Oxyhemoglobin ABG Potassium ABG Chloride ABG Glucose Oxyhemoglobin Carboxyhemoglobin Sodium Potassium Chloride Carbon Dioxide BUN Creatinine Glucose POC Glucose 128 H 148 H 160 H Hemoglobin A1c Lactic Acid Calcium Phosphorus Magnesium Transferrin AST ALT Alkaline Phosphatase Total Creatine Kinase CK-MB (CK-2) Serum Total Protein Total Protein Albumin Lzolu-2-Gpkqhqvsq Gdhcl-4-Mcytivddl Gamma Globulins PEP Interpretation HDL Cholesterol TSH Arterial Blood Glucose Arterial Blood Ionized Calcium Urine WBC (Auto) Urine Creatinine Urine Total Protein Crossmatch 05/13/21 05/14/21 05/14/21 23:25 04:43 04:43 WBC RBC 3.02 L Hgb 8.3 L Hct 25.6 L MCH RDW 15.5 H Plt Count 482 H Seg Neuts % (Manual) Lymphocytes % (Manual) Nucleated RBC % Seg Neutrophils # Man Lymphocytes # (Manual) PT ABG pH POC ABG pCO2 POC ABG pO2 ABG pO2 ABG O2 Saturation ABG Base Excess ABG Hemoglobin ABG Oxyhemoglobin ABG Potassium ABG Chloride ABG Glucose Oxyhemoglobin Carboxyhemoglobin Sodium Potassium Chloride Carbon Dioxide BUN 29 H Creatinine Glucose 192 H POC Glucose 167 H Hemoglobin A1c Lactic Acid Calcium 8.1 L Phosphorus Magnesium Transferrin AST ALT Alkaline Phosphatase Total Creatine Kinase CK-MB (CK-2) Serum Total Protein Total Protein Albumin Ilzyq-1-Txqesgkoj Zmwes-2-Vhbmwfrkk Gamma Globulins PEP Interpretation HDL Cholesterol TSH Arterial Blood Glucose Arterial Blood Ionized Calcium Urine WBC (Auto) Urine Creatinine Urine Total Protein Crossmatch 05/14/21 05/14/21 05/14/21 05:37 10:57 10:59 WBC RBC Hgb Hct MCH RDW Plt Count Seg Neuts % (Manual) Lymphocytes % (Manual) Nucleated RBC % Seg Neutrophils # Man Lymphocytes # (Manual) PT ABG pH POC ABG pCO2 POC ABG pO2 ABG pO2 ABG O2 Saturation ABG Base Excess ABG Hemoglobin ABG Oxyhemoglobin ABG Potassium ABG Chloride ABG Glucose Oxyhemoglobin Carboxyhemoglobin Sodium Potassium Chloride Carbon Dioxide BUN Creatinine Glucose POC Glucose 190 H 215 H Hemoglobin A1c Lactic Acid Calcium Phosphorus Magnesium Transferrin AST ALT Alkaline Phosphatase Total Creatine Kinase CK-MB (CK-2) Serum Total Protein Total Protein Albumin Sgzzj-2-Ubjsugdke Nmcnl-7-Cguuhotpp Gamma Globulins PEP Interpretation HDL Cholesterol TSH Arterial Blood Glucose Arterial Blood Ionized Calcium Urine WBC (Auto) 8.0 H Urine Creatinine Urine Total Protein Crossmatch 05/14/21 05/14/21 05/15/21 18:06 23:41 04:09 WBC 11.5 H RBC 2.80 L Hgb 7.7 L Hct 23.6 L MCH RDW 15.3 H Plt Count Seg Neuts % (Manual) Lymphocytes % (Manual) Nucleated RBC % Seg Neutrophils # Man Lymphocytes # (Manual) PT ABG pH POC ABG pCO2 POC ABG pO2 ABG pO2 ABG O2 Saturation ABG Base Excess ABG Hemoglobin ABG Oxyhemoglobin ABG Potassium ABG Chloride ABG Glucose Oxyhemoglobin Carboxyhemoglobin Sodium Potassium Chloride Carbon Dioxide BUN Creatinine Glucose POC Glucose 166 H 189 H Hemoglobin A1c Lactic Acid Calcium Phosphorus Magnesium Transferrin AST ALT Alkaline Phosphatase Total Creatine Kinase CK-MB (CK-2) Serum Total Protein Total Protein Albumin Flofy-6-Rdmysmdnp Tkkfi-4-Xzimadfdw Gamma Globulins PEP Interpretation HDL Cholesterol TSH Arterial Blood Glucose Arterial Blood Ionized Calcium Urine WBC (Auto) Urine Creatinine Urine Total Protein Crossmatch 05/15/21 05/15/21 05/15/21 04:09 05:51 11:33 WBC RBC Hgb Hct MCH RDW Plt Count Seg Neuts % (Manual) Lymphocytes % (Manual) Nucleated RBC % Seg Neutrophils # Man Lymphocytes # (Manual) PT ABG pH POC ABG pCO2 POC ABG pO2 ABG pO2 ABG O2 Saturation ABG Base Excess ABG Hemoglobin ABG Oxyhemoglobin ABG Potassium ABG Chloride ABG Glucose Oxyhemoglobin Carboxyhemoglobin Sodium Potassium Chloride Carbon Dioxide BUN 22 H Creatinine Glucose 148 H POC Glucose 161 H 163 H Hemoglobin A1c Lactic Acid Calcium 8.2 L Phosphorus 2.00 L D Magnesium Transferrin AST ALT Alkaline Phosphatase Total Creatine Kinase CK-MB (CK-2) Serum Total Protein Total Protein Albumin Ajubl-3-Vbesfhyyq Uyskv-7-Dbifqsfpg Gamma Globulins PEP Interpretation HDL Cholesterol TSH Arterial Blood Glucose Arterial Blood Ionized Calcium Urine WBC (Auto) Urine Creatinine Urine Total Protein Crossmatch 05/15/21 05/16/21 05/16/21 23:58 04:24 04:24 WBC 13.0 H RBC 2.79 L Hgb 7.6 L Hct 23.7 L MCH 27 L RDW 15.9 H Plt Count Seg Neuts % (Manual) Lymphocytes % (Manual) Nucleated RBC % Seg Neutrophils # Man Lymphocytes # (Manual) PT ABG pH POC ABG pCO2 POC ABG pO2 ABG pO2 ABG O2 Saturation ABG Base Excess ABG Hemoglobin ABG Oxyhemoglobin ABG Potassium ABG Chloride ABG Glucose Oxyhemoglobin Carboxyhemoglobin Sodium Potassium 3.5 L Chloride 107.9 H Carbon Dioxide BUN 20 H Creatinine Glucose 157 H POC Glucose 141 H Hemoglobin A1c Lactic Acid Calcium 8.3 L Phosphorus Magnesium Transferrin AST ALT Alkaline Phosphatase Total Creatine Kinase CK-MB (CK-2) Serum Total Protein Total Protein Albumin Exszn-5-Kzurdlhos Uaktb-3-Eudqdobih Gamma Globulins PEP Interpretation HDL Cholesterol TSH Arterial Blood Glucose Arterial Blood Ionized Calcium Urine WBC (Auto) Urine Creatinine Urine Total Protein Crossmatch 05/16/21 05/16/21 05/16/21 05:24 11:58 18:06 WBC RBC Hgb Hct MCH RDW Plt Count Seg Neuts % (Manual) Lymphocytes % (Manual) Nucleated RBC % Seg Neutrophils # Man Lymphocytes # (Manual) PT ABG pH POC ABG pCO2 POC ABG pO2 ABG pO2 ABG O2 Saturation ABG Base Excess ABG Hemoglobin ABG Oxyhemoglobin ABG Potassium ABG Chloride ABG Glucose Oxyhemoglobin Carboxyhemoglobin Sodium Potassium Chloride Carbon Dioxide BUN Creatinine Glucose POC Glucose 157 H 137 H 134 H Hemoglobin A1c Lactic Acid Calcium Phosphorus Magnesium Transferrin AST ALT Alkaline Phosphatase Total Creatine Kinase CK-MB (CK-2) Serum Total Protein Total Protein Albumin Liqcx-0-Umgnstoxw Ekajo-3-Kgdasjpah Gamma Globulins PEP Interpretation HDL Cholesterol TSH Arterial Blood Glucose Arterial Blood Ionized Calcium Urine WBC (Auto) Urine Creatinine Urine Total Protein Crossmatch 05/17/21 05/17/21 05/17/21 00:26 04:14 04:14 WBC 11.9 H RBC 2.91 L Hgb 7.4 L Hct 24.6 L MCH 25 L RDW 15.4 H Plt Count Seg Neuts % (Manual) Lymphocytes % (Manual) Nucleated RBC % Seg Neutrophils # Man Lymphocytes # (Manual) PT 15.4 H ABG pH POC ABG pCO2 POC ABG pO2 ABG pO2 ABG O2 Saturation ABG Base Excess ABG Hemoglobin ABG Oxyhemoglobin ABG Potassium ABG Chloride ABG Glucose Oxyhemoglobin Carboxyhemoglobin Sodium Potassium Chloride Carbon Dioxide BUN Creatinine Glucose POC Glucose 121 H Hemoglobin A1c Lactic Acid Calcium Phosphorus Magnesium Transferrin AST ALT Alkaline Phosphatase Total Creatine Kinase CK-MB (CK-2) Serum Total Protein Total Protein Albumin Hmjug-9-Kaehppulc Otpjm-5-Jqfoerxly Gamma Globulins PEP Interpretation HDL Cholesterol TSH Arterial Blood Glucose Arterial Blood Ionized Calcium Urine WBC (Auto) Urine Creatinine Urine Total Protein Crossmatch 05/17/21 05/17/21 05/17/21 04:14 05:19 13:14 WBC RBC Hgb Hct MCH RDW Plt Count Seg Neuts % (Manual) Lymphocytes % (Manual) Nucleated RBC % Seg Neutrophils # Man Lymphocytes # (Manual) PT ABG pH POC ABG pCO2 POC ABG pO2 ABG pO2 ABG O2 Saturation ABG Base Excess ABG Hemoglobin ABG Oxyhemoglobin ABG Potassium ABG Chloride ABG Glucose Oxyhemoglobin Carboxyhemoglobin Sodium Potassium Chloride 111.3 H Carbon Dioxide BUN 18 H Creatinine Glucose 129 H POC Glucose 117 H 122 H Hemoglobin A1c Lactic Acid Calcium Phosphorus Magnesium Transferrin AST ALT Alkaline Phosphatase Total Creatine Kinase CK-MB (CK-2) Serum Total Protein Total Protein Albumin Sicgg-2-Robupsdet Crxjv-7-Ieazvnenw Gamma Globulins PEP Interpretation HDL Cholesterol TSH Arterial Blood Glucose Arterial Blood Ionized Calcium Urine WBC (Auto) Urine Creatinine Urine Total Protein Crossmatch 05/17/21 05/17/21 05/18/21 17:46 23:45 05:51 WBC RBC Hgb Hct MCH RDW Plt Count Seg Neuts % (Manual) Lymphocytes % (Manual) Nucleated RBC % Seg Neutrophils # Man Lymphocytes # (Manual) PT ABG pH POC ABG pCO2 POC ABG pO2 ABG pO2 ABG O2 Saturation ABG Base Excess ABG Hemoglobin ABG Oxyhemoglobin ABG Potassium ABG Chloride ABG Glucose Oxyhemoglobin Carboxyhemoglobin Sodium Potassium Chloride Carbon Dioxide BUN Creatinine Glucose POC Glucose 144 H 188 H 197 H Hemoglobin A1c Lactic Acid Calcium Phosphorus Magnesium Transferrin AST ALT Alkaline Phosphatase Total Creatine Kinase CK-MB (CK-2) Serum Total Protein Total Protein Albumin Dqozg-6-Peufhoyfq Fzhpd-5-Trjdmvkup Gamma Globulins PEP Interpretation HDL Cholesterol TSH Arterial Blood Glucose Arterial Blood Ionized Calcium Urine WBC (Auto) Urine Creatinine Urine Total Protein Crossmatch 05/18/21 11:18 WBC RBC Hgb Hct MCH RDW Plt Count Seg Neuts % (Manual) Lymphocytes % (Manual) Nucleated RBC % Seg Neutrophils # Man Lymphocytes # (Manual) PT ABG pH POC ABG pCO2 POC ABG pO2 ABG pO2 ABG O2 Saturation ABG Base Excess ABG Hemoglobin ABG Oxyhemoglobin ABG Potassium ABG Chloride ABG Glucose Oxyhemoglobin Carboxyhemoglobin Sodium Potassium Chloride Carbon Dioxide BUN Creatinine Glucose POC Glucose 183 H Hemoglobin A1c Lactic Acid Calcium Phosphorus Magnesium Transferrin AST ALT Alkaline Phosphatase Total Creatine Kinase CK-MB (CK-2) Serum Total Protein Total Protein Albumin Lhqul-7-Ushsqchbb Hfmge-4-Nstceifss Gamma Globulins PEP Interpretation HDL Cholesterol TSH Arterial Blood Glucose Arterial Blood Ionized Calcium Urine WBC (Auto) Urine Creatinine Urine Total Protein Crossmatch
[2021-05-18] MEDS: SODIUM BICARBONATE 325 MG TAB FEEDTUBE PRN ×2 (16:08→16:11)
--- NOTE | 2021-05-18 17:31 | Progress Note ---
Assessment and Plan Assessment and plan: This is a 80-year-old female correction resident with GERD, hypothyroidism, hyperlipidemia, schizophrenia and dementia admitted with hypothermia, hyponatremia, hypokalemia, lactic acidosis, acute kidney injury, rhabdomyolysis and hyperosmolar nonketotic state. Acute CVA, acute metabolic encephalopathy, normal pressure hydrocephalus -CT head shows lateral ventricles and third ventricle dilation, raises possibility of normal pressure hydrocephalus -Neurology and neurosurgery consulted, appreciate recommendations -neurosurgery has no acute interventions -04/29 s/p spinal tap removal 24 mL, mental is unchanged -csf fluid showed {14 wbc,324 rbc,normal protein and glucose ,c/s is unremarkable so far} -MRI brain is remarkable for multiple ischemic event cortical as well as subcortical in both hemisphere and in all distribuation with slight petechial hemorrhage is noted findings is suggestive of possible embolic event with water shed infarct can not be totally excluded. -MRA/MRV completed-see chart for details - source of emboli not found -LINCOLN not successful -ASA 81 and lipitor -LDL noted -PT/ST/OT consulted -Aspiration/seizure precautions -Maintain sleep-wake cycle -Avoid delirium -Correct electrolyte derangements -Hold off on restarting home antipsychotic medications when obtained -Risperidone 3 mg, Donepazil 5 mg Acute hypoxic respiratory failure -s/p Bipap and ventimask -s/p bronchoscopy on 04/26 and trached 05/13 -Intubated 04/26 with 7.5 oett at 22 lips -Am vent settings: AC rate 14, tidal volume 450, PEEP 6, FiO2 30% -see RT notes for titration -PSV as tolerated -s/p racimec epi x2 04/22 and 04/23 preintubation -SPO2 monitoring -VAP bundle Acute kidney injury likely secondary to vasomotor nephropathy, urinary retention, Hypokalemia, hypo magnesium Pay[place], hyperphosphatemia -FeNA 0.50 indicating prerenal sate -Nephrology consulted, appreciate recommendations -HD initiated 04/27 and DC 05/13 -Luther catheter placed for strict intake and output; changed 05/02 -d/c to purwick -Avoid nephrotoxic medications -Trend BMP, CK -Renally dose medications -renal US WNL per read Sepsis likely 2/2 UTI and PNA -ID consulted, appreciate recommendations -COVID-19 PCR negative -04/26/2021 sputum culture: Roselyn nonalbicans -04/29/2021 UA showed significant pyuria. -UC Roselyn-> fluconazole -Lumbar puncture with CSF showing 14 WBC, 324 RBC, glucose 161, protein 51. -Abx per ID: s/p IV meropenem, renally adjusted + fluconazole -Trend WBC and fever curve -f/u cultures Hypoalbuminemia, transaminitis -Presented with transaminitis -Trend LFTs -Ntr consult for TF -PEG with IR scheduled for tomorrow 05/19 -N.p.o. after midnight -FWF -BR: Senokot -PPI -Nutritional supplementation Hypotension -s/p Vasopressor support with Levophed -MAP goal above 65 -s/p Midodrine -Blood pressure monitoring per protocol -Home amlodipine restarted Anemia -HIT (-) -Trend CBC -Transfuse to hemoglobin less than 7 -s/p 1 unit PRBC -SCD to bilateral lower extremities while in bed -BUE dopplar US negative for DVT s/p HHNK, h/o hypothyroidism -Restarted home levothyroxine (50 mcg q day) -s/p Insulin drip x2 -SSI, basal and nph -TSH 6.04, T4 0.93 -Avoid hypoglycemia The high probability of a clinically significant, sudden or life threatening deterioration of the [multi] system(s) required my full and direct attention, intervention and personal management. The aggregate critical care time was [60] minutes. This time is in addition to time spent performing reported procedures but includes the following: [x] Data Review and interpretation [x] Patient assessment and monitoring of vital signs [x] Documentation [x] Medication orders and management Disposition Plan: icu Total Time Spent with Patient (Minutes): 60 History Interval history: This is a 80-year-old female who was correction resident at [facility] with GERD, hypothyroidism, hyperlipidemia, schizophrenia and dementia presented to the emergency department on 04/20 after being found unresponsive by the staff via EMS. Per EMS glucose levels read as high. Work-up in the emergency department revealed severe hypernatremia, leukocytosis, metabolic acidosis, hyperchloremia, elevated BUN/creatinine, lactic acidosis and hyperglycemia. Patient was also hypothermic on admit. CT head showed findings suggestive of the possibility of normal pressure hydrocephalus. Patient was admitted to the hospitalist service with acute metabolic encephalopathy, diabetic hyperosmolar nonketotic state, acute kidney injury, hypernatremia, rhabdomyolysis and leukocytosis with consults to nephrology and [facility]. 04/21: Given 1 L LR bolus per nephrology and D5W increased to 125 mL's per hour, COVID-19 PCR pending, CXR and ABG ordered as patient was weaned from BiPAP to 3 L nasal cannula however was uptitrated back to nonrebreather. Will obtain blood cultures x2 given her leukocytosis and hypothermia. Replace potassium. Neurosurgery and neurology consulted and Luther catheter placed. 04/22: Improvement to sodium noted, slight hypokalemia which will be repleted, slight improvement to renal function, LFTs and rhabdomyolysis. Seen by neurosurgery today. Patient still making urine. transition to ssi and start TF as AG 15 04/23/2021: Given racemic epinephrine again due to stridor, continue IV fluids per nephrology, continue to trend sodium and BMP. 04/24/2021: 70/30 increased d/t hyperglycemia but recent BMP showed BG>300, gave additional 5 units IV insulin and ordered 5 units TID scheduled. However after IV insulin her PCOT was 400. Start on insulin gtt for hyperglycemia. Per RN she was not of IV D5 overnight d/t having one IV which was needed for emergency. Day RN did start dextrose. Remains with hyperglycemia. 04/25: Patient obtunded, withdrawal to pain only, on 50%Venti mask SPO2 abobe 92%. Plan to transition to SubQ insulin. Patient with mild hypernatremia this am, FWF added, will stop IVF for now. 04/26: Patient s/p intubation this am. Mentation is unchanged, plan for MRI brain today per NeuroSurg. Still hyperglycemic, hypernatremia improved, D5W D/katlyn, and basal insulin adjusted. 04/27: Bronch overnight. CXR with mild improvement. D/w Nephro plan for HD today, RIJ VasCath inserted. MRI on hold per [facility] patient is too unstable at this time, plan for possible spinal drained tomorrow to see if mentation will improve. 04/28: Tolerated HD overnight, only UF. Mentation remains the same. D/w [facility] plan for possible large volume spinal tap under fluoroscopy today. Plan for possible HD again today. Continue FWF for elevated Na. 04/29: MARY overnight. Plan for spinal tap this am. febrile overnight with leukocytosis, remains on pressors and more tachycardic now. Will panculture patient, and empiric IV was initiated. Remains hyperglycemic, basal insulin adjusted. 04/30: Patient's mentation remains unchanged post spinal tap. Plan for possible MRI brain next week. Afebrile overnight and leukocytosis improved, However, vent settings are going up and this am ABG with hypoxia, this am CXR with worsening opacities. Patient with 3+ pitting edema. Continue HD per Nephro. Continue current empiric IV abx, f/u on culture data, might need to get ID on board if worsen. 05/01: Mentation is unchanged, still on pressors. Febrile this am, continue IV abx, ID consulted. 3L out yesterday, plan for HD again tomorrow. Plt count improved, might need to restart AC, will D/w CCM. 05/02: No change in mentation and she is now noted to be decorticating to pain -> MRI brain ordered. Scheduled for HD today. ID consult completed. 05/03: Neurology consulted given MRI findings of multiple acute CVAs, LINCOLN ordered, EEG pending, started on aspirin and Lipitor. updated POA 05/04: Received hemodialysis today, will schedule for LINCOLN today however HD was ongoing at the time neurology will obtain MRA brain and neck then consider LINCOLN, increasing midodrine to aid in weaning Levophed. 05/05: MRA/MRV completed today, urine culture grew Roselyn and was started on fluconazole, LINCOLN tentatively scheduled for tomorrow. Resume tube feeding and n.p.o. at midnight. 05/06: Patient was scheduled for LINCOLN which was attempted however patient became hypotensive and the procedure was aborted. She received HD today. No acute events reported overnight. Tube feedings resumed. 05/07: No acute changes overnight. 05/08: May need permacath, goals of care to be discussed and will likely happen after neuro recommendations tomorrow since LINCOLN was unable to be completed. No acute events overnight. Replete mag, decreased midodrine. 05/09: MARY overnight. Patient remains unresponsive. No HD today per Nephro, low K repleted. D/w CCM plan for possible conference call with patient's POA tomorrow to further discuss plan of care and possible alternatives. 05/10: Mentation unchanged. Given patient multiple failed PST, plan for possible trach and PEG per CCM. General Surgery consulted. No plan for HD today, low K repleted. Proph AC resumed, plt is stable. 05/11: Na remains elevated, continue FWF. Mildly hypertensive, continue PRN Hydral for SBP> 170. Possible trach and Peg on sunday by Gen. Surgery. 05/12: Renal function continue to improve, no indication for any more HD, VasCath D/katlyn. Hypernatremia improved, D/C IVF continue FWF. Hypertensive overnight, Norvasc added and PRN labetalol for SBP greater than 170. NPO After midnight tonight for possible trach and PEG in the am by Gen surgery 05/13: MARY overnight. Plan for Trach and PEG today by Gen. Surgery. Per case management arrangement made for possible LTAC tomorrow. 05/14: s/p tracheostomy, no signs of any complications noted. Febrile this am with low BP and tachycardia, WBcs wnr. Orders placed X1L of IVF, UA, and blood culture. Awaiting PEGT placement by IR. D/C planning for LTAC possibly next week. 05/15: Remains stable on the vent. Mentation unchanged. Remains with low grade fevers, BP normalized post IVF. Awaiting PEGT placement by IR. Electrolytes repleted, repeat lab in the am 05/16: Patient will likely have PEG tube placed tomorrow with IR, potassium repleted, PSV today for approximately 1 hour and 30 minutes 05/17: No acute events reported overnight, PEG tube planned for by IR. Hopeful discharge to LTAC post PEG. Downtrending noted hemoglobin/hematocrit. Continue to monitor. 05/18: Awaiting PEG tube placement. N.p.o. after midnight. Will obtain a.m. labs Hospitalist Physical - Physical exam Narrative exam: General appearance: Present: no acute distress, other (Intubated) - EENT Eyes: Present: PERRL, EOM intact ENT: dentition normal - Neck Neck: Present: normal ROM - Respiratory Respiratory effort: normal Respiratory: bilateral: diminished - Cardiovascular Rhythm: regular Heart Sounds: Present: S1 & S2 - Extremities Extremities: no ischemia, pulses intact, pulses symmetrical, normal temperature, normal color Peripheral Pulses: within normal limits - Abdominal General gastrointestinal: soft, non-tender, non-distended, normal bowel sounds - Integumentary Integumentary: Present: warm, dry - Psychiatric Psychiatric: other - Neurologic Neurologic: other (Pupils equal round reactive, opens eyes and attempts to track but does not follow commands.) - Allied Health Allied health notes reviewed: nursing, RT, social work - Constitutional Vitals: Temp Pulse Resp BP Pulse Ox 98.7 F 96 H 20 140/68 98 05/18/21 16:09 05/18/21 15:51 05/18/21 12:00 05/18/21 15:51 05/18/21 15:51 General appearance: Present: no acute distress, other (Unresponsive) HEART Score - HEART Score Troponin: Troponin T 0.021 ng/mL (0.00-0.029) 04/20/21 17:10 Results - Labs CBC & Chem 7: 05/17/21 04:14 05/17/21 04:14 Labs: Laboratory Last Values WBC 11.9 K/mm3 (4.5-11.0) H 05/17/21 04:14 RBC 2.91 M/mm3 (3.65-5.03) L 05/17/21 04:14 Hgb 7.4 gm/dl (10.1-14.3) L 05/17/21 04:14 Hct 24.6 % (30.3-42.9) L 05/17/21 04:14 MCV 85 fl (79-97) 05/17/21 04:14 MCH 25 pg (28-32) L 05/17/21 04:14 MCHC 30 % (30-34) 05/17/21 04:14 RDW 15.4 % (13.2-15.2) H 05/17/21 04:14 Plt Count 403 K/mm3 (140-440) 05/17/21 04:14 Add Manual Diff Complete 04/28/21 04:00 Total Counted 100 04/28/21 04:00 Seg Neutrophils % Race Relations Professor 04/28/21 04:00 Seg Neuts % (Manual) 77.0 % (40.0-70.0) H 04/26/21 09:33 Band Neutrophils % 2.0 % 04/28/21 04:00 Lymphocytes % (Manual) 1.0 % (13.4-35.0) L 04/28/21 04:00 Reactive Lymphs % (Man) 0 % 04/28/21 04:00 Monocytes % (Manual) 1.0 % (0.0-7.3) 04/28/21 04:00 Eosinophils % (Manual) 3.0 % (0.0-4.3) 04/28/21 04:00 Metamyelocytes % 1.0 % 04/28/21 04:00 Myelocytes % 0 % 04/28/21 04:00 Promyelocytes % 0 % 04/28/21 04:00 Blast Cells % 0 % 04/28/21 04:00 Nucleated RBC % 4.0 % (0.0-0.9) H 04/28/21 04:00 Seg Neutrophils # Man 11.6 K/mm3 (1.8-7.7) H 04/28/21 04:00 Band Neutrophils # 0.3 K/mm3 04/28/21 04:00 Lymphocytes # (Manual) 0.1 K/mm3 (1.2-5.4) L 04/28/21 04:00 Abs React Lymphs (Man) 0.0 K/mm3 04/28/21 04:00 Monocytes # (Manual) 0.1 K/mm3 (0.0-0.8) 04/28/21 04:00 Eosinophils # (Manual) 0.4 K/mm3 (0.0-0.4) 04/28/21 04:00 Basophils # (Manual) 0.0 K/mm3 (0.0-0.1) 04/28/21 04:00 Metamyelocytes # 0.1 K/mm3 04/28/21 04:00 Myelocytes # 0.0 K/mm3 04/28/21 04:00 Promyelocytes # 0.0 K/mm3 04/28/21 04:00 Blast Cells # 0.0 K/mm3 04/28/21 04:00 WBC Morphology Not Reportable 04/28/21 04:00 Hypersegmented Neuts Not Reportable 04/28/21 04:00 Hyposegmented Neuts Not Reportable 04/28/21 04:00 Hypogranular Neuts Not Reportable 04/28/21 04:00 Smudge Cells Not Reportable 04/28/21 04:00 Toxic Granulation Not Reportable 04/28/21 04:00 Toxic Vacuolation Not Reportable 04/28/21 04:00 Dohle Bodies Not Reportable 04/28/21 04:00 Pelger-Huet Anomaly Not Reportable 04/28/21 04:00 Moni Rods Not Reportable 04/28/21 04:00 Platelet Estimate Consistent w auto 04/28/21 04:00 Clumped Platelets Not Reportable 04/28/21 04:00 Plt Clumps, EDTA Not Reportable 04/28/21 04:00 Large Platelets Few 04/28/21 04:00 Giant Platelets Not Reportable 04/28/21 04:00 Platelet Satelliting Not Reportable 04/28/21 04:00 Plt Morphology Comment Not Reportable 04/28/21 04:00 RBC Morphology Not Reportable 04/28/21 04:00 Dimorphic RBCs Not Reportable 04/28/21 04:00 Polychromasia Not Reportable 04/28/21 04:00 Hypochromasia Not Reportable 04/28/21 04:00 Poikilocytosis Not Reportable 04/28/21 04:00 Anisocytosis Not Reportable 04/28/21 04:00 Microcytosis Not Reportable 04/28/21 04:00 Macrocytosis Not Reportable 04/28/21 04:00 Spherocytes Not Reportable 04/28/21 04:00 Pappenheimer Bodies Not Reportable 04/28/21 04:00 Sickle Cells Not Reportable 04/28/21 04:00 Target Cells 1+ 04/28/21 04:00 Tear Drop Cells Not Reportable 04/28/21 04:00 Ovalocytes Not Reportable 04/28/21 04:00 Helmet Cells Not Reportable 04/28/21 04:00 Parkinson-Hagan Bodies Not Reportable 04/28/21 04:00 [place] Rings Not Reportable 04/28/21 04:00 Hickory Cells Not Reportable 04/28/21 04:00 Bite Cells Not Reportable 04/28/21 04:00 Crenated Cell Not Reportable 04/28/21 04:00 Elliptocytes Not Reportable 04/28/21 04:00 Acanthocytes (Spur) Not Reportable 04/28/21 04:00 Rouleaux Not Reportable 04/28/21 04:00 Hemoglobin C Crystals Not Reportable 04/28/21 04:00 Schistocytes Not Reportable 04/28/21 04:00 Malaria parasites Not Reportable 04/28/21 04:00 Herrera Bodies Not Reportable 04/28/21 04:00 Hem Pathologist Commnt No 04/28/21 04:00 PT 15.4 Sec. (12.2-14.9) H 05/17/21 04:14 INR 1.10 (0.87-1.13) 05/17/21 04:14 APTT 36.6 Sec. (24.2-36.6) 04/28/21 05:00 Heparin Anti-Xa, Unfract Negative (Negative) 04/24/21 17:29 ABG pH 7.487 (7.320-7.450) H 05/02/21 04:34 POC ABG pCO2 35.3 mmHg (32.0-48.0) 05/02/21 04:34 ABG pCO2 31.6 mm Hg 04/21/21 15:47 POC ABG pO2 78.6 mmHg (83-108) L 05/02/21 04:34 ABG pO2 168.1 mm Hg (80.0-90.0) H 04/21/21 15:47 POC ABG HCO3 26.1 05/02/21 04:34 ABG HCO3 23.3 mmol/L (20.0-26.0) 04/21/21 15:47 ABG O2 Saturation 96.0 (0-100) 05/02/21 04:34 ABG O2 Content 12.7 (0.0-44) 04/21/21 15:47 POC ABG Base Excess 2.9 05/02/21 04:34 ABG Base Excess 0.3 mmol/L (-2.0-3.0) 04/21/21 15:47 ABG Hemoglobin 11.5 (12.0-17.5) L 05/02/21 04:34 ABG Oxyhemoglobin 95.1 (94-98) 05/02/21 04:34 ABG Carboxyhemoglobin 1.0 % (0.0-5.0) 04/21/21 15:47 ABG Methemoglobin 0.3 (0.0-1.5) 05/02/21 04:34 ABG Sodium 138.6 mmol/L (136.0-145.0) 05/02/21 04:34 ABG Potassium 3.4 mmol/L (3.40-4.50) 05/02/21 04:34 ABG Chloride 105.0 mmol/L (98-107) 05/02/21 04:34 ABG Glucose 122 mg/dL (65-95) H 05/02/21 04:34 VBG pH 7.397 (7.320-7.420) 04/20/21 17:10 Oxyhemoglobin 97.5 % (95.0-99.0) 04/21/21 15:47 Carboxyhemoglobin 0.6 (0.5-1.5) 05/02/21 04:34 FiO2 100 % 04/21/21 15:47 FiO2 % 40.0 05/02/21 04:34 Sodium 145 mmol/L (137-145) 05/17/21 04:14 Potassium 4.2 mmol/L (3.6-5.0) 05/17/21 04:14 Chloride 111.3 mmol/L (98-107) H 05/17/21 04:14 Carbon Dioxide 22 mmol/L (22-30) 05/17/21 04:14 Anion Gap 16 mmol/L 05/17/21 04:14 BUN 18 mg/dL (7-17) H 05/17/21 04:14 Creatinine 0.9 mg/dL (0.6-1.2) 05/17/21 04:14 Estimated GFR > 60 ml/min 05/17/21 04:14 BUN/Creatinine Ratio 20 % 05/17/21 04:14 Glucose 129 mg/dL (65-100) H 05/17/21 04:14 POC Glucose 197 mg/dL (70-105) H 05/18/21 15:57 Hemoglobin A1c 17.1 % (4-6) H 04/22/21 15:55 Lactic Acid 1.90 mmol/L (0.7-2.0) 04/20/21 19:56 Calcium 8.5 mg/dL (8.4-10.2) 05/17/21 04:14 Phosphorus 3.20 mg/dL (2.5-4.5) 05/17/21 04:14 Magnesium 1.70 mg/dL (1.7-2.3) 05/17/21 04:14 Iron 62 ug/dL (37-170) 04/24/21 17:29 TIBC 285 mcg/dL (250-450) 04/24/21 17:29 % Saturation 21.75 % 04/24/21 17:29 Transferrin 112 mg/dl (192-382) L 04/24/21 17:29 Total Bilirubin 0.20 mg/dL (0.1-1.2) 05/03/21 04:00 Direct Bilirubin < 0.2 mg/dL (0-0.2) 04/29/21 04:00 Indirect Bilirubin 0.1 mg/dL 04/29/21 04:00 AST 53 units/L (5-40) H 05/03/21 04:00 ALT 55 units/L (7-56) 05/03/21 04:00 Alkaline Phosphatase 149 units/L (35-129) H 05/03/21 04:00 Ammonia 29.0 umol/L (25-60) 04/20/21 17:10 Total Creatine Kinase 1000 units/L (30-135) H 04/27/21 07:43 CK-MB (CK-2) 36.0 ng/mL (0.0-4.0) H 04/20/21 17:10 CK-MB (CK-2) Rel Index 0.9 (0-4) 04/20/21 17:10 Troponin T 0.021 ng/mL (0.00-0.029) 04/20/21 17:10 Serum Total Protein 5.5 g/dL (6.1-8.1) L 04/22/21 08:59 Total Protein 5.2 g/dL (6.3-8.2) L 05/03/21 04:00 Albumin 1.5 g/dL (3.9-5) L 05/03/21 04:00 Albumin/Globulin Ratio 0.4 % 05/03/21 04:00 Ebhze-6-Trsvzyrvs 0.6 g/dL (0.2-0.3) H 04/22/21 08:59 Ouzrc-4-Dfxssyngo 1.0 g/dL (0.5-0.9) H 04/22/21 08:59 Beta Globulins 0.3 g/dL (0.2-0.5) 04/22/21 08:59 Gamma Globulins 0.6 g/dL (0.8-1.7) L 04/22/21 08:59 Abnorm Protein Band 1 see below 04/22/21 08:59 PEP Interpretation see below H 04/22/21 08:59 Triglycerides 80 mg/dL (2-149) 05/04/21 04:48 Cholesterol 90 mg/dL (50-199) 05/04/21 04:48 LDL Cholesterol Direct 51 mg/dL (50-130) 05/04/21 04:48 HDL Cholesterol 24 mg/dL (40-59) L 05/04/21 04:48 Cholesterol/HDL Ratio 3.75 % 05/04/21 04:48 Serotonin Release Assay See scanned result 04/24/21 17:29 TSH 6.040 mlU/mL (0.270-4.200) H 04/20/21 17:10 Free T4 0.93 ng/dL (0.76-1.46) 04/20/21 17:10 Arterial Blood Glucose 122 mg/dL (65-95) H 05/02/21 04:34 Arterial Blood Ionized Calcium 4.5 mg/dL (4.6-5.3) L 04/28/21 05:18 Urine Color Yellow (Yellow) 05/14/21 10:57 Urine Turbidity Clear (Clear) 05/14/21 10:57 Urine pH 7.0 (5.0-7.0) 05/14/21 10:57 Ur Specific [place] 1.012 (1.003-1.030) 05/14/21 10:57 Urine Protein 30 mg/dl mg/dL (Negative) 05/14/21 10:57 Urine Glucose (UA) 150 mg/dL (Negative) 05/14/21 10:57 Urine Ketones Neg mg/dL (Negative) 05/14/21 10:57 Urine Blood Sm (Negative) 05/14/21 10:57 Urine Nitrite Neg (Negative) 05/14/21 10:57 Urine Bilirubin Neg (Negative) 05/14/21 10:57 Urine Urobilinogen < 2.0 mg/dL (<2.0) 05/14/21 10:57 Ur Leukocyte Esterase Tr (Negative) 05/14/21 10:57 Urine WBC (Auto) 8.0 /HPF (0.0-6.0) H 05/14/21 10:57 Urine RBC (Auto) 9.0 /HPF (0.0-6.0) 05/14/21 10:57 U Epithel Cells (Auto) 4.0 /HPF (0-13.0) 04/29/21 13:30 Urine Bacteria (Auto) 1+ /HPF (Negative) 05/14/21 10:57 Urine WBC Clumps 3+ /HPF 04/29/21 13:30 Urine Mucus Few /HPF 05/14/21 10:57 Urine Yeast (Budding) 1+ /HPF 05/14/21 10:57 Urine Osmolality 446 Mosm/kg 04/21/21 08:01 Urine Total Volume 1700 ml 05/08/21 09:34 Urine Creatinine 56.0 mg/dL (0.1-20.0) H 05/08/21 09:34 Ur Creatinine 24 Hour 1.0 (0.8-2.8) 05/08/21 09:34 Urine Sodium 71 mmol/L 04/21/21 08:01 Urine Total Protein 12 mg/dL (5-11.8) H 04/21/21 08:01 CSF Appearance Clear 04/29/21 11:45 CSF Color Colorless 04/29/21 11:45 CSF WBC 14 /mm3 (1-10) 04/29/21 11:45 CSF RBC 324 /mm3 (0-0) 04/29/21 11:45 CSF Seg Neutrophils 50.0 % (0-6) 04/29/21 11:45 CSF Lymphocytes % 40.0 % (40-80) 04/29/21 11:45 CSF Reactive Lymphs Not Reportable 04/29/21 11:45 CSF Monocytes % 10.0 % (15-45) 04/29/21 11:45 CSF Eosinophils % Not Reportable 04/29/21 11:45 CSF Basophils Not Reportable 04/29/21 11:45 CSF Pathologist Review C 04/29/21 11:45 CSF Glucose 161 mg/dL 04/29/21 11:45 CSF Total Protein 51 mg/dL 04/29/21 11:45 Plasma/Serum Alcohol < 0.01 % (0-0.07) 04/20/21 17:10 Heparin-induced Plt Ab Negative (Negative) 04/24/21 17:29 UF Heparin High Dose 1 % Release 04/24/21 17:29 EFE UFH Low Dose 0.1 0 % Release 04/24/21 17:29 EFE UFH Low Dose 0.5 0 % Release 04/24/21 17:29 Coronavirus (PCR) Negative (Negative) 04/21/21 Unknown Hepatitis A IgM Ab Non-reactive (NonReactive) 04/27/21 12:49 Hep Bs Antigen Nonreactive (Negative) 04/27/21 12:49 Hep B Core IgM Ab Non-reactive (NonReactive) 04/27/21 12:49 Hepatitis C Antibody Non-reactive (NonReactive) 04/27/21 12:49 Blood Type O POSITIVE 05/02/21 12:00 Antibody Screen Negative 05/02/21 12:00 Crossmatch See Detail 05/02/21 12:00 Microbiology: Microbiology 05/14/21 15:05 Peripheral/Venous Blood Culture - Preliminary NO GROWTH AFTER 72 HOURS 05/14/21 15:08 Peripheral/Venous Blood Culture - Preliminary NO GROWTH AFTER 72 HOURS Luther/IV: Voiding Method Indwelling Catheter Active Medications - Current Medications Current Medications: Generic Name Dose Route Start Last Admin Trade Name Freq PRN Reason Stop Dose Admin Acetaminophen 650 mg 04/20/21 21:31 05/14/21 09:50 Acetaminophen 325 Mg Tab PO 650 mg Q4H PRN Administration Pain MILD(1-3)/Fever >100.5/TURCIOS Albuterol 2.5 mg 04/22/21 14:49 04/23/21 15:18 Albuterol 2.5 Mg/3 Ml Nebu IH 2.5 mg Q4HRT PRN Administration Shortness Of Breath Amlodipine Besylate 5 mg 05/17/21 10:00 05/18/21 09:42 Amlodipine 5 Mg Tab FEEDTUBE 5 mg QDAY AZIZA Administration Lipase/Protease/Amylase 1 each 04/25/21 14:13 Lipase 10,500/Protease 25,000/Amylase 43,750 (Units) Dr Vasquez FEEDTUBE PRN PRN For Clogged Feeding Tube Aspirin 81 mg 05/04/21 10:00 05/18/21 09:42 Aspirin 81 Mg Tab Chew FEEDTUBE 81 mg QDAY AZIZA Administration Atorvastatin Calcium 40 mg 05/04/21 22:00 05/17/21 21:29 Atorvastatin 40 Mg Tab FEEDTUBE 40 mg QHS AZIZA Administration Dextrose 0 ml 05/16/21 10:50 Dextrose 10% *Hypoglycemia IV PRN PRN Hypoglycemia Famotidine 10 mg 04/27/21 10:00 05/18/21 09:42 Famotidine 10 Mg Tab FEEDTUBE 10 mg BID AZIZA Administration Heparin Sodium (Porcine) 5,000 unit 05/10/21 22:00 05/18/21 09:43 Heparin 5,000 Unit/1 Ml Vial SUB-Q 5,000 unit Q12HR AZIZA Administration Hydrophilic Ointment 1 applic 04/26/21 11:16 Lip Therapy Vaseline TP Q2HR PRN Dry Lips Insulin Human Lispro 0 unit 04/25/21 18:00 05/18/21 16:10 Insulin Lispro 100 Unit/Ml SUB-Q 3 unit Q6HR AZIZA Administration Protocol Labetalol HCl 20 mg 05/12/21 11:34 05/17/21 18:37 Labetalol 20 Mg/4 Ml Inj IV 20 mg Q4H PRN Administration SBP >/=170 Levothyroxine Sodium 50 mcg 05/03/21 06:00 05/18/21 05:47 Levothyroxine 50 Mcg Tab PO 50 mcg DAILY@0600 AZIZA Administration Lorazepam 1 mg 04/26/21 11:15 05/17/21 23:55 Lorazepam 2 Mg/Ml Vial IV 1 mg Q4H PRN Administration Sedation Metoclopramide HCl 5 mg 04/20/21 21:31 Metoclopramide 10 Mg/2 Ml Inj IV Q6H PRN Nausea And Vomiting Multi-Ingred Cream/Lotion/Oil/Oint 1 applic 04/26/21 11:16 Mineral Oil/Petrolatum, White Ophth Oint 3.5 Gm OU Q4HR PRN Dry Eye(s) Ondansetron HCl 4 mg 04/20/21 21:31 Ondansetron 4 Mg/2 Ml Inj IV Q8H PRN Nausea And Vomiting Senna/Docusate Sodium 1 tab 04/26/21 22:00 05/18/21 09:43 Sennosides/Docusate Sodium 8.6/50 Mg Tab FEEDTUBE 1 tab BID AZIZA Administration Simple Syrup 15 ml 04/25/21 14:13 Simple Syrup 15 Ml FEEDTUBE PRN PRN Hypoglycemia Simple Syrup 30 ml 04/25/21 14:13 Simple Syrup 15 Ml FEEDTUBE PRN PRN Hypoglycemia Sodium Bicarbonate 325 mg 04/25/21 14:13 05/18/21 16:11 Sodium Bicarbonate 325 Mg Tab FEEDTUBE 325 mg PRN PRN Administration For Clogged Feeding Tube Sodium Bicarbonate 1,300 mg 04/27/21 14:00 05/18/21 16:30 Sodium Bicarbonate 650 Mg Tab PO 1,300 mg TID AZIZA Administration Sodium Chloride 10 ml 04/20/21 22:00 05/18/21 16:30 Sodium Chloride 0.9% 10 Ml Flush Syringe IV Not Given BID AZIZA Sodium Chloride 10 ml 04/20/21 21:31 Sodium Chloride 0.9% 10 Ml Flush Syringe IV PRN PRN LINE FLUSH Sodium Chloride 10 ml 05/16/21 09:47 Sodium Chloride 0.9% 50 Ml Ivpb IV PRN PRN FLUSH Nutrition/Malnutrition Assess - Dietary Evaluation Nutrition/Malnutrition Findings: Nutrition Notes Start: 04/21/21 12:15 Freq: Status: Active Protocol: Document 05/17/21 17:15 JOSE (Rec: 05/17/21 17:23 JOSE [id number]) Nutrition Notes Initial or Follow up Brief Note Height 5 ft 2 in Weight 72.4 kg [place] Body Weight (kg) 50.00 BMI 29.2 Weight change and time frame No body weight change reported . Subjective/Other Information RD consult for routine F/U on TF continuation. PEG tube will be placed on to allow discharge to LTAC. PT continues on mechanical ventilation. #1 Nutrition Diagnosis Inadequate energy intake Diagnosis Progress(for reassessment Continues documentation) Nutrition Intervention Follow-Up By: 05/19/21 Additional Comments F/U: PEG placement, TF restart with Glucerna 1.2, vent status
[2021-05-19] MEDS: INSULIN LISPRO 100 UNIT/ML SUB-Q SCH ×4 (00:14→18:35)
[2021-05-19] MEDS: LORazepam 2 MG/ML VIAL IV PRN ×2 (01:43→06:00)
[2021-05-19] MEDS: LEVOTHYROXINE 50 MCG TAB PO SCH (05:16)
[2021-05-19 07:26] LABS: Hematocrit 24.6 % (30.3-42.9); Hemoglobin 7.8 gm/dl (10.1-14.3); Mean Corpuscular HGB Conc 32 % (30-34); Mean Corpuscular Volume 84 fl (79-97); Platelet Count 378 K/mm3 (140-440); Red Blood Count 2.93 M/mm3 (3.65-5.03); Red Cell Distribution Width 15.7 % (13.2-15.2)
[2021-05-19 07:40] LABS: INR 1.08 (0.87-1.13)
[2021-05-19 08:12] LABS: Hemolysis Index 1
[2021-05-19] MEDS: SODIUM BICARBONATE 650 MG TAB PO SCH ×3 (08:33→20:07)
[2021-05-19 08:45] LABS: BUN/Creatinine Ratio 18; Blood Urea Nitrogen 16 mg/dL (7-17)
[2021-05-19] MEDS: HEPARIN 5,000 UNIT/1 ML VIAL SUB-Q SCH ×2 (10:14→21:12)
[2021-05-19] MEDS: amLODIPine 5 MG TAB FEEDTUBE SCH (10:33)
[2021-05-19] MEDS: FAMOTIDINE 10 MG TAB FEEDTUBE SCH ×2 (10:34→21:12)
[2021-05-19] MEDS: SENNOSIDES/DOCUSATE SODIUM 8.6/50 MG TAB FEEDTUBE SCH ×2 (10:34→21:12)
[2021-05-19] MEDS: ASPIRIN 81 MG TAB CHEW FEEDTUBE SCH (10:34)
--- NOTE | 2021-05-19 11:04 | Consultation ---
History of Present Illness - Reason for Consult Consult date: 05/19/21 Gastrostomy tube placement - History of Present Illness Patient with a history of CVA unable to maintain nutritional status with failed attempt endoscopic placement of gastrostomy tube. On examination, the patient has a tracheostomy in place. Nonresponsive. Past History Past Medical History: other (Dementia, GERD) Past Surgical History: Other (some sort of pelvic surgery) Social history: other (unable to obtain) Family history: other (unable to obtain) Medications and Allergies Allergies Allergy/AdvReac Type Severity Reaction Status Date / Time No Known Allergies Allergy Unverified 04/20/21 14:35 Active Meds: Active Medications Acetaminophen (Acetaminophen 325 Mg Tab) 650 mg PO Q4H PRN PRN Reason: Pain MILD(1-3)/Fever >100.5/TURCIOS Last Admin: 05/14/21 09:50 Dose: 650 mg Albuterol (Albuterol 2.5 Mg/3 Ml Nebu) 2.5 mg IH Q4HRT PRN PRN Reason: Shortness Of Breath Last Admin: 04/23/21 15:18 Dose: 2.5 mg Amlodipine Besylate (Amlodipine 5 Mg Tab) 5 mg FEEDTUBE QDAY [facility] Last Admin: 05/18/21 09:42 Dose: 5 mg Lipase/Protease/Amylase (Lipase 10,500/Protease 25,000/Amylase 43,750 (Units) Dr Vasquez) 1 each FEEDTUBE PRN PRN PRN Reason: For Clogged Feeding Tube Aspirin (Aspirin 81 Mg Tab Chew) 81 mg FEEDTUBE QDAY [facility] Last Admin: 05/18/21 09:42 Dose: 81 mg Atorvastatin Calcium (Atorvastatin 40 Mg Tab) 40 mg FEEDTUBE QHS [facility] Last Admin: 05/18/21 21:01 Dose: 40 mg Dextrose (Dextrose 10% *Hypoglycemia) 0 ml IV PRN PRN PRN Reason: Hypoglycemia Famotidine (Famotidine 10 Mg Tab) 10 mg FEEDTUBE BID [facility] Last Admin: 05/18/21 21:02 Dose: 10 mg Fentanyl (Fentanyl 100 Mcg/2 Ml Inj) 25 mcg IV ONCE ONE Stop: 05/19/21 10:46 Heparin Sodium (Porcine) (Heparin 5,000 Unit/1 Ml Vial) 5,000 unit SUB-Q Q12HR [facility] Last Admin: 05/19/21 10:14 Dose: 5,000 unit Hydrophilic Ointment (Lip Therapy Vaseline) 1 applic TP Q2HR PRN PRN Reason: Dry Lips Insulin Human Lispro (Insulin Lispro 100 Unit/Ml) 0 unit SUB-Q Q6HR [facility]; Protocol Last Admin: 05/19/21 05:36 Dose: 3 unit Labetalol HCl (Labetalol 20 Mg/4 Ml Inj) 20 mg IV Q4H PRN PRN Reason: SBP >/=170 Last Admin: 05/17/21 18:37 Dose: 20 mg Levothyroxine Sodium (Levothyroxine 50 Mcg Tab) 50 mcg PO DAILY@0600 [facility] Last Admin: 05/19/21 05:16 Dose: Not Given Lorazepam (Lorazepam 2 Mg/Ml Vial) 1 mg IV Q4H PRN PRN Reason: Sedation Last Admin: 05/19/21 06:00 Dose: 1 mg Metoclopramide HCl (Metoclopramide 10 Mg/2 Ml Inj) 5 mg IV Q6H PRN PRN Reason: Nausea And Vomiting Multi-Ingred Cream/Lotion/Oil/Oint (Mineral Oil/Petrolatum, White Ophth Oint 3.5 Gm) 1 applic OU Q4HR PRN PRN Reason: Dry Eye(s) Ondansetron HCl (Ondansetron 4 Mg/2 Ml Inj) 4 mg IV Q8H PRN PRN Reason: Nausea And Vomiting Senna/Docusate Sodium (Sennosides/Docusate Sodium 8.6/50 Mg Tab) 1 tab FEEDTUBE BID [facility] Last Admin: 05/18/21 21:02 Dose: 1 tab Simple Syrup (Simple Syrup 15 Ml) 15 ml FEEDTUBE PRN PRN PRN Reason: Hypoglycemia Simple Syrup (Simple Syrup 15 Ml) 30 ml FEEDTUBE PRN PRN PRN Reason: Hypoglycemia Sodium Bicarbonate (Sodium Bicarbonate 325 Mg Tab) 325 mg FEEDTUBE PRN PRN PRN Reason: For Clogged Feeding Tube Last Admin: 05/18/21 16:11 Dose: 325 mg Sodium Bicarbonate (Sodium Bicarbonate 650 Mg Tab) 1,300 mg PO TID [facility] Last Admin: 05/18/21 20:50 Dose: 1,300 mg Sodium Chloride (Sodium Chloride 0.9% 10 Ml Flush Syringe) 10 ml IV BID [facility] Last Admin: 05/18/21 21:02 Dose: 10 ml Sodium Chloride (Sodium Chloride 0.9% 10 Ml Flush Syringe) 10 ml IV PRN PRN PRN Reason: LINE FLUSH Sodium Chloride (Sodium Chloride 0.9% 50 Ml Ivpb) 10 ml IV PRN PRN PRN Reason: FLUSH Review of Systems ROS unobtainable: due to mental status Exam - Constitutional Vitals: Temp Pulse Resp BP Pulse Ox 98.7 F 103 H 15 147/75 100 05/19/21 07:15 05/19/21 10:00 05/19/21 10:00 05/19/21 10:00 05/19/21 10:00 General appearance: Present: other (Intubated nonresponsive) Results - Labs CBC & Chem 7: 05/19/21 07:12 05/19/21 07:12 Labs: Abnormal lab results 05/18/21 05/18/21 05/18/21 Range/Units 11:18 15:57 23:54 WBC (4.5-11.0) K/mm3 RBC (3.65-5.03) M/mm3 Hgb (10.1-14.3) gm/dl Hct (30.3-42.9) % MCH (28-32) pg RDW (13.2-15.2) % PT (12.2-14.9) Sec. Chloride (98-107) mmol/L Glucose (65-100) mg/dL POC Glucose 183 H 197 H 146 H (70-105) mg/dL Calcium (8.4-10.2) mg/dL 05/19/21 05/19/21 05/19/21 Range/Units 05:16 07:12 07:12 WBC 12.7 H (4.5-11.0) K/mm3 RBC 2.93 L (3.65-5.03) M/mm3 Hgb 7.8 L (10.1-14.3) gm/dl Hct 24.6 L (30.3-42.9) % MCH 27 L (28-32) pg RDW 15.7 H (13.2-15.2) % PT 15.2 H (12.2-14.9) Sec. Chloride (98-107) mmol/L Glucose (65-100) mg/dL POC Glucose 164 H (70-105) mg/dL Calcium (8.4-10.2) mg/dL 05/19/21 Range/Units 07:12 WBC (4.5-11.0) K/mm3 RBC (3.65-5.03) M/mm3 Hgb (10.1-14.3) gm/dl Hct (30.3-42.9) % MCH (28-32) pg RDW (13.2-15.2) % PT (12.2-14.9) Sec. Chloride 109.1 H (98-107) mmol/L Glucose 174 H (65-100) mg/dL POC Glucose (70-105) mg/dL Calcium 8.0 L (8.4-10.2) mg/dL - Imaging and Cardiology CT scan - abdomen: image reviewed CT scan - pelvis: image reviewed Assessment and Plan Patient was brought down to the [facility] for planned placement of percutaneous gastrostomy tube. Gastrostomy tube will need to remain to dependent drainage for 24 hours prior to use after placement. Would hold on patient's transfer to LTAC until tomorrow
[2021-05-19] MEDS ORDERED: fentaNYL 100 MCG/2 ML INJ IV SCH (11:30)
--- NOTE | 2021-05-19 12:06 | Progress Note ---
Assessment and Plan 80 y/o female with altered mental state, severe electrolyte imbalance with presumptive acute renal failure and hypothermia. 05/19/21: Per IR, patient needs to remain in house 24 hours post peg placement so will not transfer today. Will reach out to [facility] to cancel transportation. Continue supportive measures. 05/18/21: Peg tomorrow. NPO after midnight tonight. 05/17/21: Per IR peg on . Continue supportive measures. 05/16/21: Peg at some point. Once pegged transfer to LTACH. Continue PSV as tolerated. 05/13/21: Trach today. Per CM transfer to LTACH tomorrow. Supportive care 05/12/21: Daily PSV trials. NPO after midnight and chemistry in am. Trach tomorrow and then transfer over the weekend if all goes well. 05/11/21: Awaiting trach and peg placement. Discontinue vascath. Daily pSV trials. 05/10/21: Long discussion over phone with POA. Discussed what I felt was prognosis. Per POA, feels best thing to do at this moment is proceed with trach and peg. Will consult surgery for this. Spoke with renal and they feel she likely will not need HD anymore. Will keep catheter at least another 24-36 hours and likely remove sometime tomorrow. Continue daily PSV and other supportive measures. Placement post Trach. 05/09/21: Will reach out to neuro for more help. Read their note this am but need a definite plan. Would like to meet/talk with POA about next steps but need a better idea of what her neuro prognosis is. Continue daily PSV trials. Prognosis overall appears to be very guarded to poor. 05/08/21: Continue supportive measures. HD per renal. Follow up neuro recs tomorrow. Need to start talking with family about next steps but need neuro input. Daily pSV to document failing. 05/07/21: Continue supportive measures. HD per renal. Follow up neuro recs tomorrow. Need to start talking with family about next steps but need neuro input. 05/06/21: Await neurology recs now that LINCOLN Could not be done. Based on neurology note, no direct source for stroke on MRA. Patient was seen on this day and can be confirmed by staff. Not sure why my note did not save. 05/05/21: follow up neurology notes. They are discussing with cards the LINCOLN. Continue vent support. Poor prognosis. 05/04/21: follow up MRA when done. LINCOLN pending. HD per renal. Daily PSV trials as tolerated. Poor prognosis given MRI findings and lack of responsiveness off sedation. 05/03/21: Follow up Neurology recs for today. Attempt PSV trials. HD on yesterday. Very very guarded prognosis. 05/02/21: MRI today. Repeat cultures. HD per renal. Once MRI results back will discuss with Neurosurgery to see if anything further should be done. Abx per ID. Overall prognosis is very guarded to poor. 04/29/21: Will reach out to neuro after 24-48 hours post spinal tap pending any change in mentation. If improvement, may need to consider shunt placement. If not, not sure that there is anything they can offer. if they still want MRI, then can obtain. Now spiking temps. Blood cultures and UA. Given time frame in Hospital will place on Vanc and Cefepime. Guarded prognosis. HD per renal. Given anasarca, will ask renal about trying to remove volume. 04/28/21: Will discuss with renal about HD again today. MRI vs LP (large amount). Coags are ok. Will attempt to get at least one of these done today. Patient is still on 80% but sat is 100. Will ask DATA ENTRY MACHINE OPERATOR about placing ART line t javier. Wean FiO2 as tolerated. Guarded prognosis. 04/27/21: HD today per renal. Vascath placed and awaiting CXR for conformation of good placement (done and good). Vent weaning as tolerated for sats >88%. ABG in the AM. Will check Coags in the am and hopeful these are stable. Platelets need to above 50K. Would like to do large volume spinal tap to see if this helps with mentation. Will also obtain MRI once oxygen requirement improves. 04/26/21: WIll electively intubate and then obtain MRI. Pending MRI results, will likely order large volume spinal tap to assess if NPH is a factor or not. Guarded prognosis. Electrolytes are improving. 04/25/21: Continue to follow renal recs. Will reach out to POA either today or tomorrow for further updates. Follow up renal recs. Monitor electrolytes and renal function. Guarded prognosis. 1. Neuro-reached out to neuro surgery, placed consult in regards to CT findings 2. Renal-appreciate help and recs, will follow IV hydration recommendations 3. Blood cultures. Urine was negative 4. Jorge Hugger for temp Guarded prognosis CCT 31 minutes. Subjective Date of service: 05/19/21 Principal diagnosis: Acute respiratory failure Interval history: For peg today. No acute events overnight. Objective Vital Signs - 12hr 05/19/21 05/19/21 05/19/21 00:21 01:01 02:00 Temperature Pulse Rate 99 H 104 H 116 H Respiratory 23 22 Rate Blood Pressure 158/89 158/89 167/94 O2 Sat by Pulse 100 99 100 Oximetry O2 Sat by Pulse 100 Oximetry [ Assessment] 05/19/21 05/19/21 05/19/21 03:00 04:00 04:29 Temperature 97.8 F Pulse Rate 115 H 100 H 101 H Respiratory 21 14 Rate Blood Pressure 150/99 114/65 114/65 O2 Sat by Pulse 100 100 100 Oximetry O2 Sat by Pulse Oximetry [ Assessment] 05/19/21 05/19/21 05/19/21 05:00 05:14 06:01 Temperature Pulse Rate 97 H 98 H 98 H Respiratory 14 14 Rate Blood Pressure 117/69 114/73 O2 Sat by Pulse 100 100 Oximetry O2 Sat by Pulse Oximetry [ Assessment] 05/19/21 05/19/21 05/19/21 07:00 07:15 07:44 Temperature 98.7 F Pulse Rate 93 H 91 H Respiratory 14 Rate Blood Pressure 108/62 108/62 O2 Sat by Pulse 100 100 Oximetry O2 Sat by Pulse Oximetry [ Assessment] 05/19/21 05/19/21 05/19/21 07:47 08:00 09:01 Temperature Pulse Rate 101 H 101 H Respiratory 14 15 Rate Blood Pressure 125/68 154/85 O2 Sat by Pulse 100 100 Oximetry O2 Sat by Pulse 100 Oximetry [ Assessment] 05/19/21 05/19/21 05/19/21 10:00 11:16 11:29 Temperature 99.9 F H Pulse Rate 103 H 117 H Respiratory 15 Rate Blood Pressure 147/75 159/94 O2 Sat by Pulse 100 100 Oximetry O2 Sat by Pulse Oximetry [ Assessment] Constitutional: other (critically ill, somnolent, on vent) Eyes: non-icteric ENT: oropharynx dry Effort: other (tachypneic but not labored) Ascultation: Bilateral: clear Cardiovascular: regular rate and rhythm Gastrointestinal: normoactive bowel sounds Integumentary: normal Extremities: no cyanosis, no edema, pink and warm Neurologic: unable to assess Psychiatric: other (unable to assess) CBC and BMP: 05/19/21 07:12 05/19/21 07:12 ABG, PT/INR, D-dimer: ABG ABG pH 7.487 (7.320-7.450) H 05/02/21 04:34 POC ABG pCO2 35.3 mmHg (32.0-48.0) 05/02/21 04:34 ABG pCO2 31.6 mm Hg 04/21/21 15:47 POC ABG pO2 78.6 mmHg (83-108) L 05/02/21 04:34 ABG pO2 168.1 mm Hg (80.0-90.0) H 04/21/21 15:47 POC ABG HCO3 26.1 05/02/21 04:34 ABG O2 Saturation 96.0 (0-100) 05/02/21 04:34 PT/INR, D-dimer PT 15.2 Sec. (12.2-14.9) H 05/19/21 07:12 INR 1.08 (0.87-1.13) 05/19/21 07:12 Abnormal lab findings: Abnormal Labs 04/20/21 04/20/21 04/20/21 17:10 17:10 17:10 WBC 17.4 H RBC 5.19 H Hgb Hct 46.8 H MCH 27 L RDW 17.2 H Plt Count Seg Neuts % (Manual) 98.0 H Lymphocytes % (Manual) 2.0 L Nucleated RBC % 1.0 H Seg Neutrophils # Man 17.1 H Lymphocytes # (Manual) 0.3 L PT ABG pH POC ABG pCO2 POC ABG pO2 ABG pO2 ABG O2 Saturation ABG Base Excess ABG Hemoglobin ABG Oxyhemoglobin ABG Potassium ABG Chloride ABG Glucose Oxyhemoglobin Carboxyhemoglobin Sodium 173 H* Potassium Chloride 132.9 H Carbon Dioxide 17 L BUN 120 H Creatinine 4.2 H Glucose 762 H* POC Glucose Hemoglobin A1c Lactic Acid Calcium Phosphorus Magnesium 3.80 H Transferrin AST 72 H ALT 63 H Alkaline Phosphatase 148 H Total Creatine Kinase 3697 H CK-MB (CK-2) 36.0 H Serum Total Protein Total Protein Albumin 2.2 L Syyqj-2-Xyrekoniy Cnqeg-2-Nqskrucag Gamma Globulins PEP Interpretation HDL Cholesterol TSH Arterial Blood Glucose Arterial Blood Ionized Calcium Urine WBC (Auto) Urine Creatinine Urine Total Protein Crossmatch 04/20/21 04/20/21 04/20/21 17:10 17:10 18:55 WBC RBC Hgb Hct MCH RDW Plt Count Seg Neuts % (Manual) Lymphocytes % (Manual) Nucleated RBC % Seg Neutrophils # Man Lymphocytes # (Manual) PT ABG pH POC ABG pCO2 POC ABG pO2 ABG pO2 ABG O2 Saturation ABG Base Excess ABG Hemoglobin ABG Oxyhemoglobin ABG Potassium ABG Chloride ABG Glucose Oxyhemoglobin Carboxyhemoglobin Sodium Potassium Chloride Carbon Dioxide BUN Creatinine Glucose POC Glucose 574 H Hemoglobin A1c Lactic Acid 2.60 H* Calcium Phosphorus Magnesium Transferrin AST ALT Alkaline Phosphatase Total Creatine Kinase CK-MB (CK-2) Serum Total Protein Total Protein Albumin Staxt-0-Hpscjorgl Wpigx-8-Spsmupukq Gamma Globulins PEP Interpretation HDL Cholesterol TSH 6.040 H Arterial Blood Glucose Arterial Blood Ionized Calcium Urine WBC (Auto) Urine Creatinine Urine Total Protein Crossmatch 04/20/21 04/20/21 04/20/21 22:12 22:58 22:58 WBC RBC Hgb Hct MCH RDW Plt Count Seg Neuts % (Manual) Lymphocytes % (Manual) Nucleated RBC % Seg Neutrophils # Man Lymphocytes # (Manual) PT ABG pH POC ABG pCO2 POC ABG pO2 ABG pO2 ABG O2 Saturation ABG Base Excess ABG Hemoglobin ABG Oxyhemoglobin ABG Potassium ABG Chloride ABG Glucose Oxyhemoglobin Carboxyhemoglobin Sodium 172 H* Potassium 3.2 L Chloride 134.2 H Carbon Dioxide 17 L BUN 112 H Creatinine 3.8 H Glucose 803 H* POC Glucose 554 H Hemoglobin A1c Lactic Acid Calcium 8.3 L Phosphorus Magnesium 3.50 H Transferrin AST ALT Alkaline Phosphatase Total Creatine Kinase CK-MB (CK-2) Serum Total Protein Total Protein Albumin Axbgc-4-Vioaxsypt Pjmpe-7-Scjphucum Gamma Globulins PEP Interpretation HDL Cholesterol TSH Arterial Blood Glucose Arterial Blood Ionized Calcium Urine WBC (Auto) Urine Creatinine Urine Total Protein Crossmatch 04/21/21 04/21/21 04/21/21 00:14 00:22 02:01 WBC RBC Hgb Hct MCH RDW Plt Count Seg Neuts % (Manual) Lymphocytes % (Manual) Nucleated RBC % Seg Neutrophils # Man Lymphocytes # (Manual) PT ABG pH POC ABG pCO2 POC ABG pO2 ABG pO2 ABG O2 Saturation ABG Base Excess ABG Hemoglobin ABG Oxyhemoglobin ABG Potassium ABG Chloride ABG Glucose Oxyhemoglobin Carboxyhemoglobin Sodium 176 H* 175 H* Potassium 2.9 L* 3.0 L Chloride 139.9 H 136.2 H Carbon Dioxide 17 L 19 L BUN 113 H 112 H Creatinine 3.9 H 3.6 H Glucose 729 H* 582 H* POC Glucose > 600 H Hemoglobin A1c Lactic Acid Calcium Phosphorus Magnesium Transferrin AST ALT Alkaline Phosphatase Total Creatine Kinase CK-MB (CK-2) Serum Total Protein Total Protein Albumin Gxqiv-4-Envfjmauo Ntvow-1-Iwftpnvel Gamma Globulins PEP Interpretation HDL Cholesterol TSH Arterial Blood Glucose Arterial Blood Ionized Calcium Urine WBC (Auto) Urine Creatinine Urine Total Protein Crossmatch 04/21/21 04/21/21 04/21/21 03:11 03:20 03:41 WBC 14.1 H RBC Hgb Hct MCH 27 L RDW 16.8 H Plt Count 114 L Seg Neuts % (Manual) 97.0 H Lymphocytes % (Manual) 3.0 L Nucleated RBC % 1.0 H Seg Neutrophils # Man 13.7 H Lymphocytes # (Manual) 0.4 L PT ABG pH POC ABG pCO2 POC ABG pO2 ABG pO2 52.3 L ABG O2 Saturation 84.5 L ABG Base Excess -2.9 L ABG Hemoglobin ABG Oxyhemoglobin ABG Potassium ABG Chloride ABG Glucose Oxyhemoglobin 82.9 L Carboxyhemoglobin Sodium Potassium Chloride Carbon Dioxide BUN Creatinine Glucose POC Glucose 404 H Hemoglobin A1c Lactic Acid Calcium Phosphorus Magnesium Transferrin AST ALT Alkaline Phosphatase Total Creatine Kinase CK-MB (CK-2) Serum Total Protein Total Protein Albumin Rmjfn-9-Sdyiggilb Fhtde-7-Szrrlknmk Gamma Globulins PEP Interpretation HDL Cholesterol TSH Arterial Blood Glucose Arterial Blood Ionized Calcium Urine WBC (Auto) Urine Creatinine Urine Total Protein Crossmatch 04/21/21 04/21/21 04/21/21 03:41 04:24 05:45 WBC RBC Hgb Hct MCH RDW Plt Count Seg Neuts % (Manual) Lymphocytes % (Manual) Nucleated RBC % Seg Neutrophils # Man Lymphocytes # (Manual) PT ABG pH POC ABG pCO2 POC ABG pO2 ABG pO2 ABG O2 Saturation ABG Base Excess ABG Hemoglobin ABG Oxyhemoglobin ABG Potassium ABG Chloride ABG Glucose Oxyhemoglobin Carboxyhemoglobin Sodium 179 H* Potassium 2.9 L* Chloride 138.2 H Carbon Dioxide 20 L BUN 111 H Creatinine 3.7 H Glucose 465 H POC Glucose 353 H 280 H Hemoglobin A1c Lactic Acid Calcium Phosphorus Magnesium Transferrin AST 73 H ALT 61 H Alkaline Phosphatase 144 H Total Creatine Kinase CK-MB (CK-2) Serum Total Protein Total Protein Albumin 2.5 L Jzfjy-4-Arkawohdn Eykjx-0-Nivrzxjae Gamma Globulins PEP Interpretation HDL Cholesterol TSH Arterial Blood Glucose Arterial Blood Ionized Calcium Urine WBC (Auto) Urine Creatinine Urine Total Protein Crossmatch 04/21/21 04/21/21 04/21/21 06:47 08:01 11:11 WBC RBC Hgb Hct MCH RDW Plt Count Seg Neuts % (Manual) Lymphocytes % (Manual) Nucleated RBC % Seg Neutrophils # Man Lymphocytes # (Manual) PT ABG pH POC ABG pCO2 POC ABG pO2 ABG pO2 ABG O2 Saturation ABG Base Excess ABG Hemoglobin ABG Oxyhemoglobin ABG Potassium ABG Chloride ABG Glucose Oxyhemoglobin Carboxyhemoglobin Sodium Potassium Chloride Carbon Dioxide BUN Creatinine Glucose POC Glucose 260 H 68 L Hemoglobin A1c Lactic Acid Calcium Phosphorus Magnesium Transferrin AST ALT Alkaline Phosphatase Total Creatine Kinase CK-MB (CK-2) Serum Total Protein Total Protein Albumin Plgry-1-Aimrqvvvv Dvgwi-7-Fmhsadwbl Gamma Globulins PEP Interpretation HDL Cholesterol TSH Arterial Blood Glucose Arterial Blood Ionized Calcium Urine WBC (Auto) Urine Creatinine 44.3 H Urine Total Protein 12 H Crossmatch 04/21/21 04/21/21 04/21/21 12:51 13:41 14:40 WBC RBC Hgb Hct MCH RDW Plt Count Seg Neuts % (Manual) Lymphocytes % (Manual) Nucleated RBC % Seg Neutrophils # Man Lymphocytes # (Manual) PT ABG pH 7.275 L POC ABG pCO2 POC ABG pO2 63.4 L ABG pO2 ABG O2 Saturation ABG Base Excess ABG Hemoglobin 8.4 L ABG Oxyhemoglobin 89.5 L ABG Potassium ABG Chloride 108.0 H ABG Glucose 404 H Oxyhemoglobin Carboxyhemoglobin Sodium Potassium Chloride Carbon Dioxide BUN Creatinine Glucose POC Glucose 146 H 186 H Hemoglobin A1c Lactic Acid Calcium Phosphorus Magnesium Transferrin AST ALT Alkaline Phosphatase Total Creatine Kinase CK-MB (CK-2) Serum Total Protein Total Protein Albumin Fpxww-8-Cktzigcnx Mcied-1-Xppwmkrea Gamma Globulins PEP Interpretation HDL Cholesterol TSH Arterial Blood Glucose 404 H Arterial Blood Ionized Calcium Urine WBC (Auto) Urine Creatinine Urine Total Protein Crossmatch 04/21/21 04/21/21 04/21/21 15:47 16:25 17:57 WBC RBC Hgb Hct MCH RDW Plt Count Seg Neuts % (Manual) Lymphocytes % (Manual) Nucleated RBC % Seg Neutrophils # Man Lymphocytes # (Manual) PT ABG pH 7.486 H POC ABG pCO2 POC ABG pO2 ABG pO2 168.1 H ABG O2 Saturation 99.1 H ABG Base Excess ABG Hemoglobin 8.9 L ABG Oxyhemoglobin ABG Potassium ABG Chloride ABG Glucose Oxyhemoglobin Carboxyhemoglobin Sodium Potassium Chloride Carbon Dioxide BUN Creatinine Glucose POC Glucose 172 H 143 H Hemoglobin A1c Lactic Acid Calcium Phosphorus Magnesium Transferrin AST ALT Alkaline Phosphatase Total Creatine Kinase CK-MB (CK-2) Serum Total Protein Total Protein Albumin Uxrbu-3-Fqmxfucuo Bkyob-2-Woqrfbvoq Gamma Globulins PEP Interpretation HDL Cholesterol TSH Arterial Blood Glucose Arterial Blood Ionized Calcium Urine WBC (Auto) Urine Creatinine Urine Total Protein Crossmatch 04/21/21 04/21/21 04/21/21 18:49 19:10 20:26 WBC RBC Hgb Hct MCH RDW Plt Count Seg Neuts % (Manual) Lymphocytes % (Manual) Nucleated RBC % Seg Neutrophils # Man Lymphocytes # (Manual) PT ABG pH POC ABG pCO2 POC ABG pO2 ABG pO2 ABG O2 Saturation ABG Base Excess ABG Hemoglobin ABG Oxyhemoglobin ABG Potassium ABG Chloride ABG Glucose Oxyhemoglobin Carboxyhemoglobin Sodium 174 H* Potassium 7.2 H* D Chloride 138.2 H Carbon Dioxide 21 L BUN 99 H Creatinine 4.0 H Glucose 157 H POC Glucose 126 H 190 H Hemoglobin A1c Lactic Acid Calcium Phosphorus Magnesium Transferrin AST 134 H ALT 71 H Alkaline Phosphatase 135 H Total Creatine Kinase 3504 H CK-MB (CK-2) Serum Total Protein Total Protein Albumin 2.2 L Gxnxh-9-Cpponmwxd Pomze-5-Byjscsgmf Gamma Globulins PEP Interpretation HDL Cholesterol TSH Arterial Blood Glucose Arterial Blood Ionized Calcium Urine WBC (Auto) Urine Creatinine Urine Total Protein Crossmatch 04/21/21 04/21/21 04/21/21 20:53 21:52 22:55 WBC RBC Hgb Hct MCH RDW Plt Count Seg Neuts % (Manual) Lymphocytes % (Manual) Nucleated RBC % Seg Neutrophils # Man Lymphocytes # (Manual) PT ABG pH POC ABG pCO2 POC ABG pO2 ABG pO2 ABG O2 Saturation ABG Base Excess ABG Hemoglobin ABG Oxyhemoglobin ABG Potassium ABG Chloride ABG Glucose Oxyhemoglobin Carboxyhemoglobin Sodium Potassium Chloride Carbon Dioxide BUN Creatinine Glucose POC Glucose 116 H 135 H 158 H Hemoglobin A1c Lactic Acid Calcium Phosphorus Magnesium Transferrin AST ALT Alkaline Phosphatase Total Creatine Kinase CK-MB (CK-2) Serum Total Protein Total Protein Albumin Mrrmv-1-Icffafeyt Tjnph-9-Rmusznner Gamma Globulins PEP Interpretation HDL Cholesterol TSH Arterial Blood Glucose Arterial Blood Ionized Calcium Urine WBC (Auto) Urine Creatinine Urine Total Protein Crossmatch 04/21/21 04/22/21 04/22/21 23:00 00:01 00:39 WBC RBC Hgb Hct MCH RDW Plt Count Seg Neuts % (Manual) Lymphocytes % (Manual) Nucleated RBC % Seg Neutrophils # Man Lymphocytes # (Manual) PT ABG pH POC ABG pCO2 POC ABG pO2 ABG pO2 ABG O2 Saturation ABG Base Excess ABG Hemoglobin ABG Oxyhemoglobin ABG Potassium ABG Chloride ABG Glucose Oxyhemoglobin Carboxyhemoglobin Sodium 176 H* 171 H* Potassium Chloride 140.0 H Carbon Dioxide 20 L BUN 98 H Creatinine 3.9 H Glucose 206 H POC Glucose 182 H Hemoglobin A1c Lactic Acid Calcium Phosphorus Magnesium Transferrin AST ALT Alkaline Phosphatase Total Creatine Kinase 3240 H CK-MB (CK-2) Serum Total Protein Total Protein Albumin Qbpit-8-Odcmghptq Foysw-6-Fobkivdxw Gamma Globulins PEP Interpretation HDL Cholesterol TSH Arterial Blood Glucose Arterial Blood Ionized Calcium Urine WBC (Auto) Urine Creatinine Urine Total Protein Crossmatch 04/22/21 04/22/21 04/22/21 00:58 01:04 04:52 WBC 11.2 H RBC Hgb Hct 44.3 H MCH 27 L RDW 17.1 H Plt Count 86 L Seg Neuts % (Manual) 86.0 H Lymphocytes % (Manual) 13.0 L Nucleated RBC % Seg Neutrophils # Man 9.6 H Lymphocytes # (Manual) PT ABG pH POC ABG pCO2 POC ABG pO2 ABG pO2 ABG O2 Saturation ABG Base Excess ABG Hemoglobin ABG Oxyhemoglobin ABG Potassium ABG Chloride ABG Glucose Oxyhemoglobin Carboxyhemoglobin Sodium Potassium Chloride Carbon Dioxide BUN Creatinine Glucose POC Glucose 176 H 143 H Hemoglobin A1c Lactic Acid Calcium Phosphorus Magnesium Transferrin AST ALT Alkaline Phosphatase Total Creatine Kinase CK-MB (CK-2) Serum Total Protein Total Protein Albumin Tvfre-6-[place] Hudth-3-Ayxjemosm Gamma Globulins PEP Interpretation HDL Cholesterol TSH Arterial Blood Glucose Arterial Blood Ionized Calcium Urine WBC (Auto) Urine Creatinine Urine Total Protein Crossmatch 04/22/21 04/22/21 04/22/21 06:07 06:09 07:18 WBC RBC Hgb Hct MCH RDW Plt Count Seg Neuts % (Manual) Lymphocytes % (Manual) Nucleated RBC % Seg Neutrophils # Man Lymphocytes # (Manual) PT ABG pH POC ABG pCO2 POC ABG pO2 ABG pO2 ABG O2 Saturation ABG Base Excess ABG Hemoglobin ABG Oxyhemoglobin ABG Potassium ABG Chloride ABG Glucose Oxyhemoglobin Carboxyhemoglobin Sodium Potassium Chloride Carbon Dioxide BUN Creatinine Glucose POC Glucose 206 H 163 H 158 H Hemoglobin A1c Lactic Acid Calcium Phosphorus Magnesium Transferrin AST ALT Alkaline Phosphatase Total Creatine Kinase CK-MB (CK-2) Serum Total Protein Total Protein Albumin Nfrmt-1-Ftrejhfmn Pjbkm-8-Qcynhzahi Gamma Globulins PEP Interpretation HDL Cholesterol TSH Arterial Blood Glucose Arterial Blood Ionized Calcium Urine WBC (Auto) Urine Creatinine Urine Total Protein Crossmatch 04/22/21 04/22/21 04/22/21 08:59 08:59 08:59 WBC RBC Hgb Hct MCH RDW Plt Count Seg Neuts % (Manual) Lymphocytes % (Manual) Nucleated RBC % Seg Neutrophils # Man Lymphocytes # (Manual) PT ABG pH POC ABG pCO2 POC ABG pO2 ABG pO2 ABG O2 Saturation ABG Base Excess ABG Hemoglobin ABG Oxyhemoglobin ABG Potassium ABG Chloride ABG Glucose Oxyhemoglobin Carboxyhemoglobin Sodium 169 H* Potassium 3.5 L Chloride 134.5 H Carbon Dioxide 20 L BUN 95 H Creatinine 3.6 H Glucose 151 H POC Glucose Hemoglobin A1c Lactic Acid Calcium Phosphorus Magnesium Transferrin AST 121 H ALT 75 H Alkaline Phosphatase 137 H Total Creatine Kinase 3105 H CK-MB (CK-2) Serum Total Protein 5.5 L Total Protein 6.0 L Albumin 2.8 L 2.1 L Jpauc-6-Qqtjkwsrb 0.6 H Kgvpo-5-Claddtrbd 1.0 H Gamma Globulins 0.6 L PEP Interpretation see below H HDL Cholesterol TSH Arterial Blood Glucose Arterial Blood Ionized Calcium Urine WBC (Auto) Urine Creatinine Urine Total Protein Crossmatch 04/22/21 04/22/21 04/22/21 09:44 10:24 12:20 WBC RBC Hgb Hct MCH RDW Plt Count Seg Neuts % (Manual) Lymphocytes % (Manual) Nucleated RBC % Seg Neutrophils # Man Lymphocytes # (Manual) PT ABG pH POC ABG pCO2 POC ABG pO2 ABG pO2 ABG O2 Saturation ABG Base Excess ABG Hemoglobin ABG Oxyhemoglobin ABG Potassium ABG Chloride ABG Glucose Oxyhemoglobin Carboxyhemoglobin Sodium Potassium Chloride Carbon Dioxide BUN Creatinine Glucose POC Glucose 107 H 131 H Hemoglobin A1c Lactic Acid Calcium Phosphorus Magnesium 2.80 H Transferrin AST ALT Alkaline Phosphatase Total Creatine Kinase CK-MB (CK-2) Serum Total Protein Total Protein Albumin Musme-7-Qlqvwucix Ueuza-2-Cgxhbmtmg Gamma Globulins PEP Interpretation HDL Cholesterol TSH Arterial Blood Glucose Arterial Blood Ionized Calcium Urine WBC (Auto) Urine Creatinine Urine Total Protein Crossmatch 04/22/21 04/22/21 04/22/21 13:19 14:16 15:22 WBC RBC Hgb Hct MCH RDW Plt Count Seg Neuts % (Manual) Lymphocytes % (Manual) Nucleated RBC % Seg Neutrophils # Man Lymphocytes # (Manual) PT ABG pH POC ABG pCO2 POC ABG pO2 ABG pO2 ABG O2 Saturation ABG Base Excess ABG Hemoglobin ABG Oxyhemoglobin ABG Potassium ABG Chloride ABG Glucose Oxyhemoglobin Carboxyhemoglobin Sodium Potassium Chloride Carbon Dioxide BUN Creatinine Glucose POC Glucose 147 H 154 H 136 H Hemoglobin A1c Lactic Acid Calcium Phosphorus Magnesium Transferrin AST ALT Alkaline Phosphatase Total Creatine Kinase CK-MB (CK-2) Serum Total Protein Total Protein Albumin Tluxk-1-Rmzpucoux Ggjcw-1-Oimfhwujx Gamma Globulins PEP Interpretation HDL Cholesterol TSH Arterial Blood Glucose Arterial Blood Ionized Calcium Urine WBC (Auto) Urine Creatinine Urine Total Protein Crossmatch 04/22/21 04/22/21 04/22/21 15:55 15:55 16:22 WBC RBC Hgb Hct MCH RDW Plt Count Seg Neuts % (Manual) Lymphocytes % (Manual) Nucleated RBC % Seg Neutrophils # Man Lymphocytes # (Manual) PT ABG pH POC ABG pCO2 POC ABG pO2 ABG pO2 ABG O2 Saturation ABG Base Excess ABG Hemoglobin ABG Oxyhemoglobin ABG Potassium ABG Chloride ABG Glucose Oxyhemoglobin Carboxyhemoglobin Sodium 169 H* Potassium Chloride 133.5 H Carbon Dioxide 19 L BUN 94 H Creatinine 3.8 H Glucose 150 H POC Glucose 140 H Hemoglobin A1c 17.1 H Lactic Acid Calcium Phosphorus Magnesium Transferrin AST ALT Alkaline Phosphatase Total Creatine Kinase CK-MB (CK-2) Serum Total Protein Total Protein Albumin Rcpaq-9-Edxidunri Dlwei-5-Soqrlynxt Gamma Globulins PEP Interpretation HDL Cholesterol TSH Arterial Blood Glucose Arterial Blood Ionized Calcium Urine WBC (Auto) Urine Creatinine Urine Total Protein Crossmatch 04/22/21 04/22/21 04/22/21 18:11 18:26 23:19 WBC RBC Hgb Hct MCH RDW Plt Count Seg Neuts % (Manual) Lymphocytes % (Manual) Nucleated RBC % Seg Neutrophils # Man Lymphocytes # (Manual) PT ABG pH POC ABG pCO2 POC ABG pO2 ABG pO2 ABG O2 Saturation ABG Base Excess ABG Hemoglobin ABG Oxyhemoglobin ABG Potassium ABG Chloride ABG Glucose Oxyhemoglobin Carboxyhemoglobin Sodium Potassium Chloride Carbon Dioxide BUN Creatinine Glucose POC Glucose 146 H 188 H Hemoglobin A1c Lactic Acid Calcium Phosphorus Magnesium Transferrin AST ALT Alkaline Phosphatase Total Creatine Kinase 2497 H CK-MB (CK-2) Serum Total Protein Total Protein Albumin Pbsqx-8-Kbywfmebl Epwuv-2-Bwgjyfyzs Gamma Globulins PEP Interpretation HDL Cholesterol TSH Arterial Blood Glucose Arterial Blood Ionized Calcium Urine WBC (Auto) Urine Creatinine Urine Total Protein Crossmatch 04/23/21 04/23/21 04/23/21 00:27 05:23 07:50 WBC RBC Hgb Hct MCH RDW Plt Count Seg Neuts % (Manual) Lymphocytes % (Manual) Nucleated RBC % Seg Neutrophils # Man Lymphocytes # (Manual) PT ABG pH POC ABG pCO2 POC ABG pO2 ABG pO2 ABG O2 Saturation ABG Base Excess ABG Hemoglobin ABG Oxyhemoglobin ABG Potassium ABG Chloride ABG Glucose Oxyhemoglobin Carboxyhemoglobin Sodium 162 H* Potassium Chloride Carbon Dioxide BUN Creatinine Glucose POC Glucose 212 H 239 H Hemoglobin A1c Lactic Acid Calcium Phosphorus Magnesium Transferrin AST ALT Alkaline Phosphatase Total Creatine Kinase CK-MB (CK-2) Serum Total Protein Total Protein Albumin Nmsew-8-Eseigttna Pllsi-7-Hkfcjpvdq Gamma Globulins PEP Interpretation HDL Cholesterol TSH Arterial Blood Glucose Arterial Blood Ionized Calcium Urine WBC (Auto) Urine Creatinine Urine Total Protein Crossmatch 04/23/21 04/23/21 04/23/21 08:13 08:13 08:13 WBC 11.9 H RBC Hgb Hct MCH 26 L RDW 16.5 H Plt Count 72 L Seg Neuts % (Manual) 80.0 H Lymphocytes % (Manual) 5.0 L Nucleated RBC % Seg Neutrophils # Man 9.5 H Lymphocytes # (Manual) 0.6 L PT ABG pH POC ABG pCO2 POC ABG pO2 ABG pO2 ABG O2 Saturation ABG Base Excess ABG Hemoglobin ABG Oxyhemoglobin ABG Potassium ABG Chloride ABG Glucose Oxyhemoglobin Carboxyhemoglobin Sodium 164 H* Potassium Chloride 128.0 H Carbon Dioxide 21 L BUN 93 H Creatinine 3.8 H Glucose 293 H POC Glucose Hemoglobin A1c Lactic Acid Calcium Phosphorus Magnesium Transferrin AST 99 H ALT 70 H Alkaline Phosphatase 147 H Total Creatine Kinase 1803 H CK-MB (CK-2) Serum Total Protein Total Protein 6.1 L Albumin 2.0 L Tzgzp-2-Gtfrdzeoa Qxfba-8-Fihchgsga Gamma Globulins PEP Interpretation HDL Cholesterol TSH Arterial Blood Glucose Arterial Blood Ionized Calcium Urine WBC (Auto) Urine Creatinine Urine Total Protein Crossmatch 04/23/21 04/23/21 04/23/21 12:06 17:35 18:17 WBC RBC Hgb Hct MCH RDW Plt Count Seg Neuts % (Manual) Lymphocytes % (Manual) Nucleated RBC % Seg Neutrophils # Man Lymphocytes # (Manual) PT ABG pH POC ABG pCO2 POC ABG pO2 ABG pO2 ABG O2 Saturation ABG Base Excess ABG Hemoglobin ABG Oxyhemoglobin ABG Potassium ABG Chloride ABG Glucose Oxyhemoglobin Carboxyhemoglobin Sodium 160 H Potassium Chloride Carbon Dioxide BUN Creatinine Glucose POC Glucose 311 H 370 H Hemoglobin A1c Lactic Acid Calcium Phosphorus Magnesium Transferrin AST ALT Alkaline Phosphatase Total Creatine Kinase CK-MB (CK-2) Serum Total Protein Total Protein Albumin Pppee-6-Erurtxhri Zrwuo-8-Aemgsnlfy Gamma Globulins PEP Interpretation HDL Cholesterol TSH Arterial Blood Glucose Arterial Blood Ionized Calcium Urine WBC (Auto) Urine Creatinine Urine Total Protein Crossmatch 04/24/21 04/24/21 04/24/21 02:13 06:00 06:00 WBC RBC Hgb Hct MCH 27 L RDW 17.0 H Plt Count 58 L Seg Neuts % (Manual) Lymphocytes % (Manual) 2.0 L Nucleated RBC % Seg Neutrophils # Delbert 8.9 H Lymphocytes # (Manual) 0.2 L PT ABG pH POC ABG pCO2 POC ABG pO2 ABG pO2 ABG O2 Saturation ABG Base Excess ABG Hemoglobin ABG Oxyhemoglobin ABG Potassium ABG Chloride ABG Glucose Oxyhemoglobin Carboxyhemoglobin Sodium 160 H Potassium Chloride Carbon Dioxide BUN Creatinine Glucose POC Glucose Hemoglobin A1c Lactic Acid Calcium Phosphorus Magnesium 2.90 H Transferrin AST ALT Alkaline Phosphatase Total Creatine Kinase CK-MB (CK-2) Serum Total Protein Total Protein Albumin Ytfut-4-Eehytzbkt Fomuo-3-Wgazkhmfc Gamma Globulins PEP Interpretation HDL Cholesterol TSH Arterial Blood Glucose Arterial Blood Ionized Calcium Urine WBC (Auto) Urine Creatinine Urine Total Protein Crossmatch 04/24/21 04/24/21 04/24/21 07:46 08:15 11:34 WBC RBC Hgb Hct MCH RDW Plt Count Seg Neuts % (Manual) Lymphocytes % (Manual) Nucleated RBC % Seg Neutrophils # Man Lymphocytes # (Manual) PT ABG pH POC ABG pCO2 POC ABG pO2 ABG pO2 ABG O2 Saturation ABG Base Excess ABG Hemoglobin ABG Oxyhemoglobin ABG Potassium ABG Chloride ABG Glucose Oxyhemoglobin Carboxyhemoglobin Sodium 159 H Potassium Chloride 125.6 H Carbon Dioxide 19 L BUN 94 H Creatinine 3.7 H Glucose 514 H* POC Glucose 395 H 422 H Hemoglobin A1c Lactic Acid Calcium Phosphorus Magnesium Transferrin AST ALT 61 H Alkaline Phosphatase 155 H Total Creatine Kinase CK-MB (CK-2) Serum Total Protein Total Protein 6.1 L Albumin 1.5 L Cmqdq-2-Gftecbwba Xxmra-3-Qmfxaifrb Gamma Globulins PEP Interpretation HDL Cholesterol TSH Arterial Blood Glucose Arterial Blood Ionized Calcium Urine WBC (Auto) Urine Creatinine Urine Total Protein Crossmatch 04/24/21 04/24/21 04/24/21 13:11 14:01 15:03 WBC RBC Hgb Hct MCH RDW Plt Count Seg Neuts % (Manual) Lymphocytes % (Manual) Nucleated RBC % Seg Neutrophils # Man Lymphocytes # (Manual) PT ABG pH POC ABG pCO2 POC ABG pO2 ABG pO2 ABG O2 Saturation ABG Base Excess ABG Hemoglobin ABG Oxyhemoglobin ABG Potassium ABG Chloride ABG Glucose Oxyhemoglobin Carboxyhemoglobin Sodium Potassium Chloride Carbon Dioxide BUN Creatinine Glucose POC Glucose 384 H 423 H 418 H Hemoglobin A1c Lactic Acid Calcium Phosphorus Magnesium Transferrin AST ALT Alkaline Phosphatase Total Creatine Kinase CK-MB (CK-2) Serum Total Protein Total Protein Albumin Nbtmf-8-Nuovrdhvu Ggaql-2-Fkonqfivb Gamma Globulins PEP Interpretation HDL Cholesterol TSH Arterial Blood Glucose Arterial Blood Ionized Calcium Urine WBC (Auto) Urine Creatinine Urine Total Protein Crossmatch 04/24/21 04/24/21 04/24/21 17:29 18:28 19:41 WBC RBC Hgb Hct MCH RDW Plt Count Seg Neuts % (Manual) Lymphocytes % (Manual) Nucleated RBC % Seg Neutrophils # Man Lymphocytes # (Manual) PT ABG pH POC ABG pCO2 POC ABG pO2 ABG pO2 ABG O2 Saturation ABG Base Excess ABG Hemoglobin ABG Oxyhemoglobin ABG Potassium ABG Chloride ABG Glucose Oxyhemoglobin Carboxyhemoglobin Sodium Potassium Chloride Carbon Dioxide BUN Creatinine Glucose POC Glucose 335 H 321 H Hemoglobin A1c Lactic Acid Calcium Phosphorus Magnesium Transferrin 112 L AST ALT Alkaline Phosphatase Total Creatine Kinase CK-MB (CK-2) Serum Total Protein Total Protein Albumin Izdck-9-Bmhyhacro Ymdln-5-Gkcflisat Gamma Globulins PEP Interpretation HDL Cholesterol TSH Arterial Blood Glucose Arterial Blood Ionized Calcium Urine WBC (Auto) Urine Creatinine Urine Total Protein Crossmatch 04/24/21 04/25/21 04/25/21 22:33 01:28 02:28 WBC RBC Hgb Hct MCH RDW Plt Count Seg Neuts % (Manual) Lymphocytes % (Manual) Nucleated RBC % Seg Neutrophils # Man Lymphocytes # (Manual) PT ABG pH POC ABG pCO2 POC ABG pO2 ABG pO2 ABG O2 Saturation ABG Base Excess ABG Hemoglobin ABG Oxyhemoglobin ABG Potassium ABG Chloride ABG Glucose Oxyhemoglobin Carboxyhemoglobin Sodium Potassium Chloride Carbon Dioxide BUN Creatinine Glucose POC Glucose 349 H 283 H 247 H Hemoglobin A1c Lactic Acid Calcium Phosphorus Magnesium Transferrin AST ALT Alkaline Phosphatase Total Creatine Kinase CK-MB (CK-2) Serum Total Protein Total Protein Albumin Rjezc-6-Aszifkyxt Lssaa-5-Kghpqigfg Gamma Globulins PEP Interpretation HDL Cholesterol TSH Arterial Blood Glucose Arterial Blood Ionized Calcium Urine WBC (Auto) Urine Creatinine Urine Total Protein Crossmatch 04/25/21 04/25/21 04/25/21 03:25 04:22 05:40 WBC RBC Hgb Hct MCH RDW Plt Count Seg Neuts % (Manual) Lymphocytes % (Manual) Nucleated RBC % Seg Neutrophils # Man Lymphocytes # (Manual) PT ABG pH POC ABG pCO2 POC ABG pO2 ABG pO2 ABG O2 Saturation ABG Base Excess ABG Hemoglobin ABG Oxyhemoglobin ABG Potassium ABG Chloride ABG Glucose Oxyhemoglobin Carboxyhemoglobin Sodium Potassium Chloride Carbon Dioxide BUN Creatinine Glucose POC Glucose 196 H 207 H 204 H Hemoglobin A1c Lactic Acid Calcium Phosphorus Magnesium Transferrin AST ALT Alkaline Phosphatase Total Creatine Kinase CK-MB (CK-2) Serum Total Protein Total Protein Albumin Ahbns-7-Hgontseza Pkbnp-4-Woxkrxoen Gamma Globulins PEP Interpretation HDL Cholesterol TSH Arterial Blood Glucose Arterial Blood Ionized Calcium Urine WBC (Auto) Urine Creatinine Urine Total Protein Crossmatch 04/25/21 04/25/21 04/25/21 05:45 06:43 07:37 WBC RBC Hgb Hct MCH 27 L RDW 17.0 H Plt Count 64 L Seg Neuts % (Manual) 84.0 H Lymphocytes % (Manual) 6.0 L Nucleated RBC % 1.0 H Seg Neutrophils # Man Lymphocytes # (Manual) 0.4 L PT ABG pH POC ABG pCO2 POC ABG pO2 ABG pO2 ABG O2 Saturation ABG Base Excess ABG Hemoglobin ABG Oxyhemoglobin ABG Potassium ABG Chloride ABG Glucose Oxyhemoglobin Carboxyhemoglobin Sodium Potassium Chloride Carbon Dioxide BUN Creatinine Glucose POC Glucose 238 H 201 H Hemoglobin A1c Lactic Acid Calcium Phosphorus Magnesium Transferrin AST ALT Alkaline Phosphatase Total Creatine Kinase CK-MB (CK-2) Serum Total Protein Total Protein Albumin Ynnaf-4-Piszyagdp Wdbuh-3-Ytukhnmrv Gamma Globulins PEP Interpretation HDL Cholesterol TSH Arterial Blood Glucose Arterial Blood Ionized Calcium Urine WBC (Auto) Urine Creatinine Urine Total Protein Crossmatch 04/25/21 04/25/21 04/25/21 08:11 08:11 08:41 WBC RBC Hgb Hct MCH RDW Plt Count Seg Neuts % (Manual) Lymphocytes % (Manual) Nucleated RBC % Seg Neutrophils # Man Lymphocytes # (Manual) PT ABG pH POC ABG pCO2 POC ABG pO2 ABG pO2 ABG O2 Saturation ABG Base Excess ABG Hemoglobin ABG Oxyhemoglobin ABG Potassium ABG Chloride ABG Glucose Oxyhemoglobin Carboxyhemoglobin Sodium 148 H D Potassium Chloride 115.7 H Carbon Dioxide 21 L BUN 83 H Creatinine 3.6 H Glucose 247 H POC Glucose 220 H Hemoglobin A1c Lactic Acid Calcium Phosphorus Magnesium 2.50 H Transferrin AST 63 H ALT 62 H Alkaline Phosphatase 143 H Total Creatine Kinase CK-MB (CK-2) Serum Total Protein Total Protein 5.4 L Albumin 1.4 L Lamzu-1-Bqnrutiie Nadau-1-Lktcwpejz Gamma Globulins PEP Interpretation HDL Cholesterol TSH Arterial Blood Glucose Arterial Blood Ionized Calcium Urine WBC (Auto) Urine Creatinine Urine Total Protein Crossmatch 04/25/21 04/25/21 04/25/21 09:22 10:31 11:44 WBC RBC Hgb Hct MCH RDW Plt Count Seg Neuts % (Manual) Lymphocytes % (Manual) Nucleated RBC % Seg Neutrophils # Man Lymphocytes # (Manual) PT ABG pH POC ABG pCO2 POC ABG pO2 ABG pO2 ABG O2 Saturation ABG Base Excess ABG Hemoglobin ABG Oxyhemoglobin ABG Potassium ABG Chloride ABG Glucose Oxyhemoglobin Carboxyhemoglobin Sodium Potassium Chloride Carbon Dioxide BUN Creatinine Glucose POC Glucose 228 H 215 H 191 H Hemoglobin A1c Lactic Acid Calcium Phosphorus Magnesium Transferrin AST ALT Alkaline Phosphatase Total Creatine Kinase CK-MB (CK-2) Serum Total Protein Total Protein Albumin Rqrfe-5-Wisfzchde Plzkt-0-Hqcpjrzva Gamma Globulins PEP Interpretation HDL Cholesterol TSH Arterial Blood Glucose Arterial Blood Ionized Calcium Urine WBC (Auto) Urine Creatinine Urine Total Protein Crossmatch 04/25/21 04/25/21 04/25/21 12:23 13:48 14:11 WBC RBC Hgb Hct MCH RDW Plt Count Seg Neuts % (Manual) Lymphocytes % (Manual) Nucleated RBC % Seg Neutrophils # Man Lymphocytes # (Manual) PT ABG pH POC ABG pCO2 POC ABG pO2 ABG pO2 ABG O2 Saturation ABG Base Excess ABG Hemoglobin ABG Oxyhemoglobin ABG Potassium ABG Chloride ABG Glucose Oxyhemoglobin Carboxyhemoglobin Sodium Potassium Chloride Carbon Dioxide BUN Creatinine Glucose POC Glucose 229 H 177 H 161 H Hemoglobin A1c Lactic Acid Calcium Phosphorus Magnesium Transferrin AST ALT Alkaline Phosphatase Total Creatine Kinase CK-MB (CK-2) Serum Total Protein Total Protein Albumin Kxbua-4-Eoujxjnbx Pmckt-1-Deaelmzlv Gamma Globulins PEP Interpretation HDL Cholesterol TSH Arterial Blood Glucose Arterial Blood Ionized Calcium Urine WBC (Auto) Urine Creatinine Urine Total Protein Crossmatch 04/25/21 04/25/21 04/26/21 18:01 21:31 01:19 WBC RBC Hgb Hct MCH RDW Plt Count Seg Neuts % (Manual) Lymphocytes % (Manual) Nucleated RBC % Seg Neutrophils # Man Lymphocytes # (Manual) PT ABG pH POC ABG pCO2 POC ABG pO2 ABG pO2 ABG O2 Saturation ABG Base Excess ABG Hemoglobin ABG Oxyhemoglobin ABG Potassium ABG Chloride ABG Glucose Oxyhemoglobin Carboxyhemoglobin Sodium Potassium Chloride Carbon Dioxide BUN Creatinine Glucose POC Glucose 264 H 371 H 356 H Hemoglobin A1c Lactic Acid Calcium Phosphorus Magnesium Transferrin AST ALT Alkaline Phosphatase Total Creatine Kinase CK-MB (CK-2) Serum Total Protein Total Protein Albumin Ojkbg-6-Kxdhetiho Upiar-5-Dbzlbvfav Gamma Globulins PEP Interpretation HDL Cholesterol TSH Arterial Blood Glucose Arterial Blood Ionized Calcium Urine WBC (Auto) Urine Creatinine Urine Total Protein Crossmatch 04/26/21 04/26/21 04/26/21 06:31 09:13 09:33 WBC RBC Hgb Hct MCH 27 L RDW 16.9 H Plt Count 58 L Seg Neuts % (Manual) 77.0 H Lymphocytes % (Manual) 4.0 L Nucleated RBC % 2.0 H Seg Neutrophils # Man Lymphocytes # (Manual) 0.3 L PT ABG pH POC ABG pCO2 POC ABG pO2 ABG pO2 ABG O2 Saturation ABG Base Excess ABG Hemoglobin ABG Oxyhemoglobin ABG Potassium ABG Chloride ABG Glucose Oxyhemoglobin Carboxyhemoglobin Sodium Potassium Chloride Carbon Dioxide BUN Creatinine Glucose POC Glucose 428 H 454 H Hemoglobin A1c Lactic Acid Calcium Phosphorus Magnesium Transferrin AST ALT Alkaline Phosphatase Total Creatine Kinase CK-MB (CK-2) Serum Total Protein Total Protein Albumin Qilzg-8-Tzfdmeeih Ubrgv-5-Zebgqoked Gamma Globulins PEP Interpretation HDL Cholesterol TSH Arterial Blood Glucose Arterial Blood Ionized Calcium Urine WBC (Auto) Urine Creatinine Urine Total Protein Crossmatch 04/26/21 04/26/21 04/26/21 09:33 09:33 11:00 WBC RBC Hgb Hct MCH RDW Plt Count Seg Neuts % (Manual) Lymphocytes % (Manual) Nucleated RBC % Seg Neutrophils # Man Lymphocytes # (Manual) PT ABG pH 7.281 L POC ABG pCO2 POC ABG pO2 66.4 L ABG pO2 ABG O2 Saturation ABG Base Excess ABG Hemoglobin 10.9 L ABG Oxyhemoglobin 91 L ABG Potassium ABG Chloride ABG Glucose 521 H Oxyhemoglobin Carboxyhemoglobin Sodium Potassium Chloride Carbon Dioxide 19 L BUN 98 H Creatinine 3.8 H Glucose 530 H* POC Glucose Hemoglobin A1c Lactic Acid Calcium 8.1 L Phosphorus 5.60 H D Magnesium Transferrin AST 60 H ALT 72 H Alkaline Phosphatase 168 H Total Creatine Kinase CK-MB (CK-2) Serum Total Protein Total Protein 4.6 L Albumin 1.7 L Lhhxt-2-Cbngjufbt Lyjxn-7-Tfenttuum Gamma Globulins PEP Interpretation HDL Cholesterol TSH Arterial Blood Glucose 521 H Arterial Blood Ionized Calcium Urine WBC (Auto) Urine Creatinine Urine Total Protein Crossmatch 04/26/21 04/26/21 04/26/21 12:36 15:39 16:18 WBC RBC Hgb Hct MCH RDW Plt Count Seg Neuts % (Manual) Lymphocytes % (Manual) Nucleated RBC % Seg Neutrophils # Man Lymphocytes # (Manual) PT ABG pH 7.275 L POC ABG pCO2 POC ABG pO2 63.4 L ABG pO2 ABG O2 Saturation ABG Base Excess ABG Hemoglobin 8.4 L ABG Oxyhemoglobin 89.5 L ABG Potassium ABG Chloride 108.0 H ABG Glucose 404 H Oxyhemoglobin Carboxyhemoglobin Sodium Potassium Chloride Carbon Dioxide BUN Creatinine Glucose POC Glucose 414 H 324 H Hemoglobin A1c Lactic Acid Calcium Phosphorus Magnesium Transferrin AST ALT Alkaline Phosphatase Total Creatine Kinase CK-MB (CK-2) Serum Total Protein Total Protein Albumin Fruad-9-Bpwvmgjsd Exsul-9-Htejcwakq Gamma Globulins PEP Interpretation HDL Cholesterol TSH Arterial Blood Glucose 404 H Arterial Blood Ionized Calcium Urine WBC (Auto) Urine Creatinine Urine Total Protein Crossmatch 04/26/21 04/27/21 04/27/21 21:14 00:07 05:47 WBC RBC Hgb Hct MCH RDW Plt Count Seg Neuts % (Manual) Lymphocytes % (Manual) Nucleated RBC % Seg Neutrophils # Man Lymphocytes # (Manual) PT ABG pH POC ABG pCO2 POC ABG pO2 ABG pO2 ABG O2 Saturation ABG Base Excess ABG Hemoglobin ABG Oxyhemoglobin ABG Potassium ABG Chloride ABG Glucose Oxyhemoglobin Carboxyhemoglobin Sodium Potassium Chloride Carbon Dioxide BUN Creatinine Glucose POC Glucose 242 H 282 H 214 H Hemoglobin A1c Lactic Acid Calcium Phosphorus Magnesium Transferrin AST ALT Alkaline Phosphatase Total Creatine Kinase CK-MB (CK-2) Serum Total Protein Total Protein Albumin Uxwlx-3-Bteumihzp Cgjpc-2-Kctzvmdqp Gamma Globulins PEP Interpretation HDL Cholesterol TSH Arterial Blood Glucose Arterial Blood Ionized Calcium Urine WBC (Auto) Urine Creatinine Urine Total Protein Crossmatch 04/27/21 04/27/21 04/27/21 06:23 07:43 08:30 WBC RBC Hgb Hct MCH RDW Plt Count Seg Neuts % (Manual) Lymphocytes % (Manual) Nucleated RBC % Seg Neutrophils # Man Lymphocytes # (Manual) PT ABG pH 7.309 L POC ABG pCO2 POC ABG pO2 70.6 L ABG pO2 ABG O2 Saturation ABG Base Excess ABG Hemoglobin 9.16 L ABG Oxyhemoglobin 92.4 L ABG Potassium ABG Chloride ABG Glucose Oxyhemoglobin Carboxyhemoglobin Sodium Potassium Chloride 110.1 H Carbon Dioxide 15 L BUN 109 H Creatinine 4.3 H Glucose 218 H POC Glucose 187 H Hemoglobin A1c Lactic Acid Calcium Phosphorus Magnesium Transferrin AST 53 H ALT Alkaline Phosphatase 148 H Total Creatine Kinase 1000 H CK-MB (CK-2) Serum Total Protein Total Protein 5.2 L Albumin 1.2 L Rgqud-9-Misccdyly Zwmay-5-Tiruiqwwd Gamma Globulins PEP Interpretation HDL Cholesterol TSH Arterial Blood Glucose Arterial Blood Ionized Calcium Urine WBC (Auto) Urine Creatinine Urine Total Protein Crossmatch 04/27/21 04/27/21 04/27/21 11:54 21:08 23:28 WBC RBC Hgb Hct MCH RDW Plt Count Seg Neuts % (Manual) Lymphocytes % (Manual) Nucleated RBC % Seg Neutrophils # Man Lymphocytes # (Manual) PT ABG pH POC ABG pCO2 POC ABG pO2 ABG pO2 ABG O2 Saturation ABG Base Excess ABG Hemoglobin ABG Oxyhemoglobin ABG Potassium ABG Chloride ABG Glucose Oxyhemoglobin Carboxyhemoglobin Sodium Potassium Chloride Carbon Dioxide BUN Creatinine Glucose POC Glucose 147 H 136 H 201 H Hemoglobin A1c Lactic Acid Calcium Phosphorus Magnesium Transferrin AST ALT Alkaline Phosphatase Total Creatine Kinase CK-MB (CK-2) Serum Total Protein Total Protein Albumin Jzbju-6-Uewyabubm Nezmw-7-Teoetwipp Gamma Globulins PEP Interpretation HDL Cholesterol TSH Arterial Blood Glucose Arterial Blood Ionized Calcium Urine WBC (Auto) Urine Creatinine Urine Total Protein Crossmatch 04/28/21 04/28/21 04/28/21 04:00 04:00 05:00 WBC 12.6 H RBC 3.59 L Hgb 9.4 L Hct MCH 26 L RDW 16.6 H Plt Count 111 L Seg Neuts % (Manual) Lymphocytes % (Manual) 1.0 L Nucleated RBC % 4.0 H Seg Neutrophils # Man 11.6 H Lymphocytes # (Manual) 0.1 L PT 15.3 H ABG pH POC ABG pCO2 POC ABG pO2 ABG pO2 ABG O2 Saturation ABG Base Excess ABG Hemoglobin ABG Oxyhemoglobin ABG Potassium ABG Chloride ABG Glucose Oxyhemoglobin Carboxyhemoglobin Sodium 147 H Potassium 3.5 L D Chloride Carbon Dioxide BUN 79 H Creatinine 3.8 H Glucose 194 H POC Glucose Hemoglobin A1c Lactic Acid Calcium 8.1 L Phosphorus Magnesium Transferrin AST ALT Alkaline Phosphatase Total Creatine Kinase CK-MB (CK-2) Serum Total Protein Total Protein Albumin Quhkl-7-Ntwzfuvyh Eumjz-5-Fnvlwhohm Gamma Globulins PEP Interpretation HDL Cholesterol TSH Arterial Blood Glucose Arterial Blood Ionized Calcium Urine WBC (Auto) Urine Creatinine Urine Total Protein Crossmatch 04/28/21 04/28/21 04/28/21 05:08 05:18 11:04 WBC RBC Hgb Hct MCH RDW Plt Count Seg Neuts % (Manual) Lymphocytes % (Manual) Nucleated RBC % Seg Neutrophils # Man Lymphocytes # (Manual) PT ABG pH POC ABG pCO2 POC ABG pO2 66.5 L ABG pO2 ABG O2 Saturation ABG Base Excess ABG Hemoglobin 9.7 L ABG Oxyhemoglobin 92.5 L ABG Potassium 3.2 L ABG Chloride ABG Glucose 200 H Oxyhemoglobin Carboxyhemoglobin Sodium Potassium Chloride Carbon Dioxide BUN Creatinine Glucose POC Glucose 183 H 174 H Hemoglobin A1c Lactic Acid Calcium Phosphorus Magnesium Transferrin AST ALT Alkaline Phosphatase Total Creatine Kinase CK-MB (CK-2) Serum Total Protein Total Protein Albumin Wkujz-2-Eftsxpngl Sesnv-4-Fszzutzln Gamma Globulins PEP Interpretation HDL Cholesterol TSH Arterial Blood Glucose 200 H Arterial Blood Ionized Calcium 4.5 L Urine WBC (Auto) Urine Creatinine Urine Total Protein Crossmatch 04/28/21 04/28/21 04/28/21 17:16 21:14 23:41 WBC RBC Hgb Hct MCH RDW Plt Count Seg Neuts % (Manual) Lymphocytes % (Manual) Nucleated RBC % Seg Neutrophils # Man Lymphocytes # (Manual) PT ABG pH POC ABG pCO2 POC ABG pO2 ABG pO2 ABG O2 Saturation ABG Base Excess ABG Hemoglobin ABG Oxyhemoglobin ABG Potassium ABG Chloride ABG Glucose Oxyhemoglobin Carboxyhemoglobin Sodium Potassium Chloride Carbon Dioxide BUN Creatinine Glucose POC Glucose 135 H 134 H 171 H Hemoglobin A1c Lactic Acid Calcium Phosphorus Magnesium Transferrin AST ALT Alkaline Phosphatase Total Creatine Kinase CK-MB (CK-2) Serum Total Protein Total Protein Albumin Npair-2-Jwkklvpee Hnnef-3-Ohbdvenvw Gamma Globulins PEP Interpretation HDL Cholesterol TSH Arterial Blood Glucose Arterial Blood Ionized Calcium Urine WBC (Auto) Urine Creatinine Urine Total Protein Crossmatch 04/29/21 04/29/21 04/29/21 01:16 04:00 04:00 WBC 13.3 H RBC 3.12 L Hgb 8.3 L Hct 26.2 L MCH 27 L RDW 16.3 H Plt Count 132 L Seg Neuts % (Manual) Lymphocytes % (Manual) Nucleated RBC % Seg Neutrophils # Man Lymphocytes # (Manual) PT ABG pH POC ABG pCO2 POC ABG pO2 ABG pO2 ABG O2 Saturation ABG Base Excess ABG Hemoglobin ABG Oxyhemoglobin ABG Potassium ABG Chloride ABG Glucose Oxyhemoglobin Carboxyhemoglobin Sodium Potassium Chloride Carbon Dioxide BUN 63 H Creatinine 3.4 H Glucose 249 H POC Glucose 236 H Hemoglobin A1c Lactic Acid Calcium 8.2 L Phosphorus Magnesium Transferrin AST 61 H ALT 71 H Alkaline Phosphatase 170 H Total Creatine Kinase CK-MB (CK-2) Serum Total Protein Total Protein 5.1 L Albumin 1.6 L Hgbnz-8-Itlhdudxt Ygyvj-6-Qgxbzavjl Gamma Globulins PEP Interpretation HDL Cholesterol TSH Arterial Blood Glucose Arterial Blood Ionized Calcium Urine WBC (Auto) Urine Creatinine Urine Total Protein Crossmatch 04/29/21 04/29/21 04/29/21 11:35 13:30 16:01 WBC RBC Hgb Hct MCH RDW Plt Count Seg Neuts % (Manual) Lymphocytes % (Manual) Nucleated RBC % Seg Neutrophils # Man Lymphocytes # (Manual) PT ABG pH POC ABG pCO2 POC ABG pO2 ABG pO2 ABG O2 Saturation ABG Base Excess ABG Hemoglobin ABG Oxyhemoglobin ABG Potassium ABG Chloride ABG Glucose Oxyhemoglobin Carboxyhemoglobin Sodium Potassium Chloride Carbon Dioxide BUN Creatinine Glucose POC Glucose 320 H 297 H Hemoglobin A1c Lactic Acid Calcium Phosphorus Magnesium Transferrin AST ALT Alkaline Phosphatase Total Creatine Kinase CK-MB (CK-2) Serum Total Protein Total Protein Albumin Yckfz-9-Oepeiyvbh Vtxtx-1-Kqkffkpws Gamma Globulins PEP Interpretation HDL Cholesterol TSH Arterial Blood Glucose Arterial Blood Ionized Calcium Urine WBC (Auto) > 182.0 H Urine Creatinine Urine Total Protein Crossmatch 04/29/21 04/29/21 04/30/21 21:58 23:35 04:00 WBC 11.4 H RBC 3.27 L Hgb 8.7 L Hct 27.5 L MCH 27 L RDW 16.6 H Plt Count Seg Neuts % (Manual) Lymphocytes % (Manual) Nucleated RBC % Seg Neutrophils # Man Lymphocytes # (Manual) PT ABG pH POC ABG pCO2 POC ABG pO2 ABG pO2 ABG O2 Saturation ABG Base Excess ABG Hemoglobin ABG Oxyhemoglobin ABG Potassium ABG Chloride ABG Glucose Oxyhemoglobin Carboxyhemoglobin Sodium Potassium Chloride Carbon Dioxide BUN Creatinine Glucose POC Glucose 260 H 254 H Hemoglobin A1c Lactic Acid Calcium Phosphorus Magnesium Transferrin AST ALT Alkaline Phosphatase Total Creatine Kinase CK-MB (CK-2) Serum Total Protein Total Protein Albumin Cdela-9-Atvxptdho Ifogf-1-Kgvwozvcv Gamma Globulins PEP Interpretation HDL Cholesterol TSH Arterial Blood Glucose Arterial Blood Ionized Calcium Urine WBC (Auto) Urine Creatinine Urine Total Protein Crossmatch 04/30/21 04/30/21 04/30/21 04:00 05:17 05:31 WBC RBC Hgb Hct MCH RDW Plt Count Seg Neuts % (Manual) Lymphocytes % (Manual) Nucleated RBC % Seg Neutrophils # Man Lymphocytes # (Manual) PT ABG pH 7.452 H POC ABG pCO2 30.5 L POC ABG pO2 54.5 L ABG pO2 ABG O2 Saturation ABG Base Excess ABG Hemoglobin 10.1 L ABG Oxyhemoglobin 87.4 L ABG Potassium 2.9 L ABG Chloride ABG Glucose 305 H Oxyhemoglobin Carboxyhemoglobin Sodium Potassium 3.1 L Chloride Carbon Dioxide BUN 79 H Creatinine 3.9 H Glucose 275 H POC Glucose 267 H Hemoglobin A1c Lactic Acid Calcium Phosphorus 5.60 H D Magnesium Transferrin AST ALT Alkaline Phosphatase Total Creatine Kinase CK-MB (CK-2) Serum Total Protein Total Protein Albumin Inqhq-0-Lysfirell Meaxc-7-Ojplrkppk Gamma Globulins PEP Interpretation HDL Cholesterol TSH Arterial Blood Glucose 305 H Arterial Blood Ionized Calcium Urine WBC (Auto) Urine Creatinine Urine Total Protein Crossmatch 04/30/21 04/30/21 04/30/21 12:31 17:50 22:24 WBC RBC Hgb Hct MCH RDW Plt Count Seg Neuts % (Manual) Lymphocytes % (Manual) Nucleated RBC % Seg Neutrophils # Man Lymphocytes # (Manual) PT ABG pH POC ABG pCO2 POC ABG pO2 ABG pO2 ABG O2 Saturation ABG Base Excess ABG Hemoglobin ABG Oxyhemoglobin ABG Potassium ABG Chloride ABG Glucose Oxyhemoglobin Carboxyhemoglobin Sodium Potassium Chloride Carbon Dioxide BUN Creatinine Glucose POC Glucose 259 H 161 H 146 H Hemoglobin A1c Lactic Acid Calcium Phosphorus Magnesium Transferrin AST ALT Alkaline Phosphatase Total Creatine Kinase CK-MB (CK-2) Serum Total Protein Total Protein Albumin Rxptx-9-Bltrgsofc Bticz-9-Aqpmvobye Gamma Globulins PEP Interpretation HDL Cholesterol TSH Arterial Blood Glucose Arterial Blood Ionized Calcium Urine WBC (Auto) Urine Creatinine Urine Total Protein Crossmatch 05/01/21 05/01/21 05/01/21 00:09 03:30 04:00 WBC 12.0 H RBC 3.08 L Hgb 8.1 L Hct 25.6 L MCH 26 L RDW 16.3 H Plt Count Seg Neuts % (Manual) Lymphocytes % (Manual) Nucleated RBC % Seg Neutrophils # Man Lymphocytes # (Manual) PT ABG pH 7.493 H POC ABG pCO2 POC ABG pO2 ABG pO2 ABG O2 Saturation ABG Base Excess ABG Hemoglobin 9.3 L ABG Oxyhemoglobin ABG Potassium ABG Chloride ABG Glucose 167 H Oxyhemoglobin Carboxyhemoglobin 0.4 L Sodium Potassium Chloride Carbon Dioxide BUN Creatinine Glucose POC Glucose 149 H Hemoglobin A1c Lactic Acid Calcium Phosphorus Magnesium Transferrin AST ALT Alkaline Phosphatase Total Creatine Kinase CK-MB (CK-2) Serum Total Protein Total Protein Albumin Yxcef-7-Smvogpwzn Idsgm-5-Rhnivryfx Gamma Globulins PEP Interpretation HDL Cholesterol TSH Arterial Blood Glucose 167 H Arterial Blood Ionized Calcium Urine WBC (Auto) Urine Creatinine Urine Total Protein Crossmatch 05/01/21 05/01/21 05/01/21 04:00 05:48 11:49 WBC RBC Hgb Hct MCH RDW Plt Count Seg Neuts % (Manual) Lymphocytes % (Manual) Nucleated RBC % Seg Neutrophils # Man Lymphocytes # (Manual) PT ABG pH POC ABG pCO2 POC ABG pO2 ABG pO2 ABG O2 Saturation ABG Base Excess ABG Hemoglobin ABG Oxyhemoglobin ABG Potassium ABG Chloride ABG Glucose Oxyhemoglobin Carboxyhemoglobin Sodium Potassium 3.5 L Chloride Carbon Dioxide BUN 62 H Creatinine 3.3 H Glucose 179 H POC Glucose 197 H 167 H Hemoglobin A1c Lactic Acid Calcium 8.3 L Phosphorus Magnesium Transferrin AST ALT Alkaline Phosphatase Total Creatine Kinase CK-MB (CK-2) Serum Total Protein Total Protein Albumin Ftxxs-0-Utfdclhca Cvenh-9-Aziirtqlw Gamma Globulins PEP Interpretation HDL Cholesterol TSH Arterial Blood Glucose Arterial Blood Ionized Calcium Urine WBC (Auto) Urine Creatinine Urine Total Protein Crossmatch 05/01/21 05/01/21 05/02/21 16:24 23:25 04:00 WBC 14.2 H RBC 2.61 L Hgb 6.9 L Hct 22.1 L MCH 27 L RDW 16.1 H Plt Count Seg Neuts % (Manual) Lymphocytes % (Manual) Nucleated RBC % Seg Neutrophils # Man Lymphocytes # (Manual) PT ABG pH POC ABG pCO2 POC ABG pO2 ABG pO2 ABG O2 Saturation ABG Base Excess ABG Hemoglobin ABG Oxyhemoglobin ABG Potassium ABG Chloride ABG Glucose Oxyhemoglobin Carboxyhemoglobin Sodium Potassium Chloride Carbon Dioxide BUN Creatinine Glucose POC Glucose 157 H 147 H Hemoglobin A1c Lactic Acid Calcium Phosphorus Magnesium Transferrin AST ALT Alkaline Phosphatase Total Creatine Kinase CK-MB (CK-2) Serum Total Protein Total Protein Albumin Oiqwt-0-Pmtlbbjtg Jbjsy-3-Upfbefmht Gamma Globulins PEP Interpretation HDL Cholesterol TSH Arterial Blood Glucose Arterial Blood Ionized Calcium Urine WBC (Auto) Urine Creatinine Urine Total Protein Crossmatch 05/02/21 05/02/21 05/02/21 04:00 04:34 05:23 WBC RBC Hgb Hct MCH RDW Plt Count Seg Neuts % (Manual) Lymphocytes % (Manual) Nucleated RBC % Seg Neutrophils # Man Lymphocytes # (Manual) PT ABG pH 7.487 H POC ABG pCO2 POC ABG pO2 78.6 L ABG pO2 ABG O2 Saturation ABG Base Excess ABG Hemoglobin 11.5 L ABG Oxyhemoglobin ABG Potassium ABG Chloride ABG Glucose 122 H Oxyhemoglobin Carboxyhemoglobin Sodium Potassium Chloride Carbon Dioxide BUN 49 H Creatinine 2.8 H Glucose 117 H POC Glucose 119 H Hemoglobin A1c Lactic Acid Calcium Phosphorus Magnesium Transferrin AST ALT Alkaline Phosphatase Total Creatine Kinase CK-MB (CK-2) Serum Total Protein Total Protein Albumin Uabhy-5-Rllducyls Gprlf-1-Sownxdpyh Gamma Globulins PEP Interpretation HDL Cholesterol TSH Arterial Blood Glucose 122 H Arterial Blood Ionized Calcium Urine WBC (Auto) Urine Creatinine Urine Total Protein Crossmatch 05/02/21 05/02/21 05/02/21 12:00 12:04 17:29 WBC RBC Hgb Hct MCH RDW Plt Count Seg Neuts % (Manual) Lymphocytes % (Manual) Nucleated RBC % Seg Neutrophils # Man Lymphocytes # (Manual) PT ABG pH POC ABG pCO2 POC ABG pO2 ABG pO2 ABG O2 Saturation ABG Base Excess ABG Hemoglobin ABG Oxyhemoglobin ABG Potassium ABG Chloride ABG Glucose Oxyhemoglobin Carboxyhemoglobin Sodium Potassium Chloride Carbon Dioxide BUN Creatinine Glucose POC Glucose 115 H 120 H Hemoglobin A1c Lactic Acid Calcium Phosphorus Magnesium Transferrin AST ALT Alkaline Phosphatase Total Creatine Kinase CK-MB (CK-2) Serum Total Protein Total Protein Albumin Hwwtg-1-Czswcfyuz Otsrl-9-Xrrjnnzca Gamma Globulins PEP Interpretation HDL Cholesterol TSH Arterial Blood Glucose Arterial Blood Ionized Calcium Urine WBC (Auto) Urine Creatinine Urine Total Protein Crossmatch See Detail 05/02/21 05/03/21 05/03/21 23:36 04:00 04:00 WBC 13.9 H RBC 3.22 L Hgb 8.7 L Hct 27.4 L MCH 27 L RDW 15.8 H Plt Count Seg Neuts % (Manual) Lymphocytes % (Manual) Nucleated RBC % Seg Neutrophils # Man Lymphocytes # (Manual) PT ABG pH POC ABG pCO2 POC ABG pO2 ABG pO2 ABG O2 Saturation ABG Base Excess ABG Hemoglobin ABG Oxyhemoglobin ABG Potassium ABG Chloride ABG Glucose Oxyhemoglobin Carboxyhemoglobin Sodium 146 H Potassium 3.5 L Chloride 107.5 H Carbon Dioxide BUN 40 H Creatinine 2.5 H Glucose 104 H POC Glucose 130 H Hemoglobin A1c Lactic Acid Calcium Phosphorus Magnesium Transferrin AST 53 H ALT Alkaline Phosphatase 149 H Total Creatine Kinase CK-MB (CK-2) Serum Total Protein Total Protein 5.2 L Albumin 1.5 L Fbqku-5-Lmigrxbun Dmqic-3-Vwoqhlqta Gamma Globulins PEP Interpretation HDL Cholesterol TSH Arterial Blood Glucose Arterial Blood Ionized Calcium Urine WBC (Auto) Urine Creatinine Urine Total Protein Crossmatch 05/03/21 05/04/21 05/04/21 17:26 01:24 04:48 WBC 14.3 H RBC 3.14 L Hgb 8.5 L Hct 26.3 L MCH 27 L RDW 15.8 H Plt Count Seg Neuts % (Manual) Lymphocytes % (Manual) Nucleated RBC % Seg Neutrophils # Man Lymphocytes # (Manual) PT ABG pH POC ABG pCO2 POC ABG pO2 ABG pO2 ABG O2 Saturation ABG Base Excess ABG Hemoglobin ABG Oxyhemoglobin ABG Potassium ABG Chloride ABG Glucose Oxyhemoglobin Carboxyhemoglobin Sodium Potassium Chloride Carbon Dioxide BUN Creatinine Glucose POC Glucose 123 H 146 H Hemoglobin A1c Lactic Acid Calcium Phosphorus Magnesium Transferrin AST ALT Alkaline Phosphatase Total Creatine Kinase CK-MB (CK-2) Serum Total Protein Total Protein Albumin Ojkgp-8-Cjqvgdldl Afwcv-1-Fqglnhaga Gamma Globulins PEP Interpretation HDL Cholesterol TSH Arterial Blood Glucose Arterial Blood Ionized Calcium Urine WBC (Auto) Urine Creatinine Urine Total Protein Crossmatch 05/04/21 05/04/21 05/04/21 04:48 05:15 11:24 WBC RBC Hgb Hct MCH RDW Plt Count Seg Neuts % (Manual) Lymphocytes % (Manual) Nucleated RBC % Seg Neutrophils # Man Lymphocytes # (Manual) PT ABG pH POC ABG pCO2 POC ABG pO2 ABG pO2 ABG O2 Saturation ABG Base Excess ABG Hemoglobin ABG Oxyhemoglobin ABG Potassium ABG Chloride ABG Glucose Oxyhemoglobin Carboxyhemoglobin Sodium Potassium 3.5 L Chloride Carbon Dioxide BUN 58 H Creatinine 3.4 H Glucose 168 H POC Glucose 162 H 145 H Hemoglobin A1c Lactic Acid Calcium Phosphorus 5.30 H Magnesium Transferrin AST ALT Alkaline Phosphatase Total Creatine Kinase CK-MB (CK-2) Serum Total Protein Total Protein Albumin Dcqzl-5-Ntnqlukrb Msmpk-8-Xvupwupwi Gamma Globulins PEP Interpretation HDL Cholesterol 24 L TSH Arterial Blood Glucose Arterial Blood Ionized Calcium Urine WBC (Auto) Urine Creatinine Urine Total Protein Crossmatch 05/04/21 05/04/21 05/05/21 16:01 23:32 04:00 WBC RBC Hgb Hct MCH RDW Plt Count Seg Neuts % (Manual) Lymphocytes % (Manual) Nucleated RBC % Seg Neutrophils # Man Lymphocytes # (Manual) PT ABG pH POC ABG pCO2 POC ABG pO2 ABG pO2 ABG O2 Saturation ABG Base Excess ABG Hemoglobin ABG Oxyhemoglobin ABG Potassium ABG Chloride ABG Glucose Oxyhemoglobin Carboxyhemoglobin Sodium Potassium 3.4 L Chloride Carbon Dioxide BUN 43 H Creatinine 2.7 H Glucose 124 H POC Glucose 148 H 134 H Hemoglobin A1c Lactic Acid Calcium 8.2 L Phosphorus Magnesium Transferrin AST ALT Alkaline Phosphatase Total Creatine Kinase CK-MB (CK-2) Serum Total Protein Total Protein Albumin Apxhh-0-Sshdflbuo Tklco-5-Pshibregh Gamma Globulins PEP Interpretation HDL Cholesterol TSH Arterial Blood Glucose Arterial Blood Ionized Calcium Urine WBC (Auto) Urine Creatinine Urine Total Protein Crossmatch 05/05/21 05/06/21 05/06/21 05:14 00:01 04:00 WBC RBC Hgb Hct MCH RDW Plt Count Seg Neuts % (Manual) Lymphocytes % (Manual) Nucleated RBC % Seg Neutrophils # Man Lymphocytes # (Manual) PT ABG pH POC ABG pCO2 POC ABG pO2 ABG pO2 ABG O2 Saturation ABG Base Excess ABG Hemoglobin ABG Oxyhemoglobin ABG Potassium ABG Chloride ABG Glucose Oxyhemoglobin Carboxyhemoglobin Sodium Potassium 3.2 L Chloride Carbon Dioxide BUN 56 H Creatinine 3.0 H Glucose 110 H POC Glucose 120 H 120 H Hemoglobin A1c Lactic Acid Calcium 7.8 L Phosphorus 4.60 H Magnesium Transferrin AST ALT Alkaline Phosphatase Total Creatine Kinase CK-MB (CK-2) Serum Total Protein Total Protein Albumin Pympo-9-Eomunlhmb Cuuym-3-Nupcymtyj Gamma Globulins PEP Interpretation HDL Cholesterol TSH Arterial Blood Glucose Arterial Blood Ionized Calcium Urine WBC (Auto) Urine Creatinine Urine Total Protein Crossmatch 05/06/21 05/06/21 05/06/21 04:27 05:15 17:37 WBC RBC 3.03 L Hgb 8.3 L Hct 25.4 L MCH 27 L RDW Plt Count Seg Neuts % (Manual) Lymphocytes % (Manual) Nucleated RBC % Seg Neutrophils # Man Lymphocytes # (Manual) PT ABG pH POC ABG pCO2 POC ABG pO2 ABG pO2 ABG O2 Saturation ABG Base Excess ABG Hemoglobin ABG Oxyhemoglobin ABG Potassium ABG Chloride ABG Glucose Oxyhemoglobin Carboxyhemoglobin Sodium Potassium Chloride Carbon Dioxide BUN Creatinine Glucose POC Glucose 137 H 132 H Hemoglobin A1c Lactic Acid Calcium Phosphorus Magnesium Transferrin AST ALT Alkaline Phosphatase Total Creatine Kinase CK-MB (CK-2) Serum Total Protein Total Protein Albumin Fikns-0-Xnnyaivip Wvmli-2-Fryhjguoh Gamma Globulins PEP Interpretation HDL Cholesterol TSH Arterial Blood Glucose Arterial Blood Ionized Calcium Urine WBC (Auto) Urine Creatinine Urine Total Protein Crossmatch 05/07/21 05/07/21 05/07/21 00:30 04:23 04:23 WBC RBC Hgb Hct MCH RDW Plt Count Seg Neuts % (Manual) Lymphocytes % (Manual) Nucleated RBC % Seg Neutrophils # Man Lymphocytes # (Manual) PT ABG pH POC ABG pCO2 POC ABG pO2 ABG pO2 ABG O2 Saturation ABG Base Excess ABG Hemoglobin ABG Oxyhemoglobin ABG Potassium ABG Chloride ABG Glucose Oxyhemoglobin Carboxyhemoglobin Sodium Potassium 3.4 L Chloride 107.1 H Carbon Dioxide BUN 28 H Creatinine 1.9 H Glucose 165 H POC Glucose 121 H Hemoglobin A1c Lactic Acid Calcium 8.2 L Phosphorus Magnesium 1.60 L Transferrin AST ALT Alkaline Phosphatase Total Creatine Kinase CK-MB (CK-2) Serum Total Protein Total Protein Albumin Rcycv-0-Nxgxihxqu Vkamh-4-Fykskvgmk Gamma Globulins PEP Interpretation HDL Cholesterol TSH Arterial Blood Glucose Arterial Blood Ionized Calcium Urine WBC (Auto) Urine Creatinine Urine Total Protein Crossmatch 05/07/21 05/07/21 05/07/21 05:30 11:37 17:28 WBC RBC Hgb Hct MCH RDW Plt Count Seg Neuts % (Manual) Lymphocytes % (Manual) Nucleated RBC % Seg Neutrophils # Man Lymphocytes # (Manual) PT ABG pH POC ABG pCO2 POC ABG pO2 ABG pO2 ABG O2 Saturation ABG Base Excess ABG Hemoglobin ABG Oxyhemoglobin ABG Potassium ABG Chloride ABG Glucose Oxyhemoglobin Carboxyhemoglobin Sodium Potassium Chloride Carbon Dioxide BUN Creatinine Glucose POC Glucose 205 H 148 H 170 H Hemoglobin A1c Lactic Acid Calcium Phosphorus Magnesium Transferrin AST ALT Alkaline Phosphatase Total Creatine Kinase CK-MB (CK-2) Serum Total Protein Total Protein Albumin Agefv-2-Htkswhdlt Lcqeb-3-Frnmkhkhn Gamma Globulins PEP Interpretation HDL Cholesterol TSH Arterial Blood Glucose Arterial Blood Ionized Calcium Urine WBC (Auto) Urine Creatinine Urine Total Protein Crossmatch 05/07/21 05/08/21 05/08/21 23:57 05:12 05:12 WBC 11.2 H RBC 3.01 L Hgb 8.2 L Hct 25.5 L MCH 27 L RDW 15.4 H Plt Count Seg Neuts % (Manual) Lymphocytes % (Manual) Nucleated RBC % Seg Neutrophils # Man Lymphocytes # (Manual) PT ABG pH POC ABG pCO2 POC ABG pO2 ABG pO2 ABG O2 Saturation ABG Base Excess ABG Hemoglobin ABG Oxyhemoglobin ABG Potassium ABG Chloride ABG Glucose Oxyhemoglobin Carboxyhemoglobin Sodium Potassium 3.4 L Chloride Carbon Dioxide BUN 37 H Creatinine 2.1 H Glucose 160 H POC Glucose 172 H Hemoglobin A1c Lactic Acid Calcium 8.3 L Phosphorus Magnesium Transferrin AST ALT Alkaline Phosphatase Total Creatine Kinase CK-MB (CK-2) Serum Total Protein Total Protein Albumin Kjsva-5-Soirhuwnf Vvofs-2-Dskblouhm Gamma Globulins PEP Interpretation HDL Cholesterol TSH Arterial Blood Glucose Arterial Blood Ionized Calcium Urine WBC (Auto) Urine Creatinine Urine Total Protein Crossmatch 05/08/21 05/08/21 05/08/21 05:20 09:34 11:35 WBC RBC Hgb Hct MCH RDW Plt Count Seg Neuts % (Manual) Lymphocytes % (Manual) Nucleated RBC % Seg Neutrophils # Man Lymphocytes # (Manual) PT ABG pH POC ABG pCO2 POC ABG pO2 ABG pO2 ABG O2 Saturation ABG Base Excess ABG Hemoglobin ABG Oxyhemoglobin ABG Potassium ABG Chloride ABG Glucose Oxyhemoglobin Carboxyhemoglobin Sodium Potassium Chloride Carbon Dioxide BUN Creatinine Glucose POC Glucose 148 H 208 H Hemoglobin A1c Lactic Acid Calcium Phosphorus Magnesium Transferrin AST ALT Alkaline Phosphatase Total Creatine Kinase CK-MB (CK-2) Serum Total Protein Total Protein Albumin Gfrht-9-Xcirrnjao Rofqc-1-Swsrkadox Gamma Globulins PEP Interpretation HDL Cholesterol TSH Arterial Blood Glucose Arterial Blood Ionized Calcium Urine WBC (Auto) Urine Creatinine 56.0 H Urine Total Protein Crossmatch 05/08/21 05/08/21 05/09/21 16:55 23:57 05:30 WBC 12.8 H RBC 2.98 L Hgb 8.1 L Hct 25.4 L MCH 27 L RDW 15.4 H Plt Count Seg Neuts % (Manual) Lymphocytes % (Manual) Nucleated RBC % Seg Neutrophils # Man Lymphocytes # (Manual) PT ABG pH POC ABG pCO2 POC ABG pO2 ABG pO2 ABG O2 Saturation ABG Base Excess ABG Hemoglobin ABG Oxyhemoglobin ABG Potassium ABG Chloride ABG Glucose Oxyhemoglobin Carboxyhemoglobin Sodium Potassium Chloride Carbon Dioxide BUN Creatinine Glucose POC Glucose 179 H 183 H Hemoglobin A1c Lactic Acid Calcium Phosphorus Magnesium Transferrin AST ALT Alkaline Phosphatase Total Creatine Kinase CK-MB (CK-2) Serum Total Protein Total Protein Albumin Jbply-9-Llqzhxyqa Shmkj-9-Vcsxzayrh Gamma Globulins PEP Interpretation HDL Cholesterol TSH Arterial Blood Glucose Arterial Blood Ionized Calcium Urine WBC (Auto) Urine Creatinine Urine Total Protein Crossmatch 05/09/21 05/09/21 05/09/21 05:30 05:31 11:24 WBC RBC Hgb Hct MCH RDW Plt Count Seg Neuts % (Manual) Lymphocytes % (Manual) Nucleated RBC % Seg Neutrophils # Man Lymphocytes # (Manual) PT ABG pH POC ABG pCO2 POC ABG pO2 ABG pO2 ABG O2 Saturation ABG Base Excess ABG Hemoglobin ABG Oxyhemoglobin ABG Potassium ABG Chloride ABG Glucose Oxyhemoglobin Carboxyhemoglobin Sodium 150 H Potassium 3.2 L Chloride 110.2 H Carbon Dioxide BUN 37 H Creatinine 1.8 H Glucose 191 H POC Glucose 120 H 197 H Hemoglobin A1c Lactic Acid Calcium Phosphorus Magnesium Transferrin AST ALT Alkaline Phosphatase Total Creatine Kinase CK-MB (CK-2) Serum Total Protein Total Protein Albumin Uyufo-9-Egfeaibzz Ndkdw-2-Risdzxyft Gamma Globulins PEP Interpretation HDL Cholesterol TSH Arterial Blood Glucose Arterial Blood Ionized Calcium Urine WBC (Auto) Urine Creatinine Urine Total Protein Crossmatch 05/09/21 05/09/21 05/10/21 15:49 23:42 05:00 WBC RBC 2.99 L Hgb 8.2 L Hct 25.6 L MCH RDW 15.4 H Plt Count 456 H Seg Neuts % (Manual) Lymphocytes % (Manual) Nucleated RBC % Seg Neutrophils # Man Lymphocytes # (Manual) PT ABG pH POC ABG pCO2 POC ABG pO2 ABG pO2 ABG O2 Saturation ABG Base Excess ABG Hemoglobin ABG Oxyhemoglobin ABG Potassium ABG Chloride ABG Glucose Oxyhemoglobin Carboxyhemoglobin Sodium Potassium Chloride Carbon Dioxide BUN Creatinine Glucose POC Glucose 318 H 152 H Hemoglobin A1c Lactic Acid Calcium Phosphorus Magnesium Transferrin AST ALT Alkaline Phosphatase Total Creatine Kinase CK-MB (CK-2) Serum Total Protein Total Protein Albumin Qlpej-0-Lukwumawq Craip-5-Vlxheacto Gamma Globulins PEP Interpretation HDL Cholesterol TSH Arterial Blood Glucose Arterial Blood Ionized Calcium Urine WBC (Auto) Urine Creatinine Urine Total Protein Crossmatch 05/10/21 05/10/21 05/10/21 05:00 05:30 12:08 WBC RBC Hgb Hct MCH RDW Plt Count Seg Neuts % (Manual) Lymphocytes % (Manual) Nucleated RBC % Seg Neutrophils # Man Lymphocytes # (Manual) PT ABG pH POC ABG pCO2 POC ABG pO2 ABG pO2 ABG O2 Saturation ABG Base Excess ABG Hemoglobin ABG Oxyhemoglobin ABG Potassium ABG Chloride ABG Glucose Oxyhemoglobin Carboxyhemoglobin Sodium 148 H Potassium 3.4 L Chloride 110.5 H Carbon Dioxide BUN 36 H Creatinine 1.6 H Glucose 185 H POC Glucose 168 H 193 H Hemoglobin A1c Lactic Acid Calcium Phosphorus Magnesium Transferrin AST ALT Alkaline Phosphatase Total Creatine Kinase CK-MB (CK-2) Serum Total Protein Total Protein Albumin Yyvtf-6-Yhhelaxyl Aovyn-0-Alrbafwhs Gamma Globulins PEP Interpretation HDL Cholesterol TSH Arterial Blood Glucose Arterial Blood Ionized Calcium Urine WBC (Auto) Urine Creatinine Urine Total Protein Crossmatch 05/10/21 05/10/21 05/11/21 18:02 23:25 05:40 WBC RBC 3.11 L Hgb 8.3 L Hct 26.6 L MCH 27 L RDW 15.7 H Plt Count 489 H Seg Neuts % (Manual) Lymphocytes % (Manual) Nucleated RBC % Seg Neutrophils # Man Lymphocytes # (Manual) PT ABG pH POC ABG pCO2 POC ABG pO2 ABG pO2 ABG O2 Saturation ABG Base Excess ABG Hemoglobin ABG Oxyhemoglobin ABG Potassium ABG Chloride ABG Glucose Oxyhemoglobin Carboxyhemoglobin Sodium Potassium Chloride Carbon Dioxide BUN Creatinine Glucose POC Glucose 205 H 171 H Hemoglobin A1c Lactic Acid Calcium Phosphorus Magnesium Transferrin AST ALT Alkaline Phosphatase Total Creatine Kinase CK-MB (CK-2) Serum Total Protein Total Protein Albumin Dypoo-7-Hogkcfjzr Xrgjz-8-Onntztqbu Gamma Globulins PEP Interpretation HDL Cholesterol TSH Arterial Blood Glucose Arterial Blood Ionized Calcium Urine WBC (Auto) Urine Creatinine Urine Total Protein Crossmatch 05/11/21 05/11/21 05/11/21 05:40 11:45 18:23 WBC RBC Hgb Hct MCH RDW Plt Count Seg Neuts % (Manual) Lymphocytes % (Manual) Nucleated RBC % Seg Neutrophils # Man Lymphocytes # (Manual) PT ABG pH POC ABG pCO2 POC ABG pO2 ABG pO2 ABG O2 Saturation ABG Base Excess ABG Hemoglobin ABG Oxyhemoglobin ABG Potassium ABG Chloride ABG Glucose Oxyhemoglobin Carboxyhemoglobin Sodium 149 H Potassium Chloride 112.0 H Carbon Dioxide BUN 36 H Creatinine 1.4 H Glucose 164 H POC Glucose 176 H 203 H Hemoglobin A1c Lactic Acid Calcium Phosphorus Magnesium Transferrin AST ALT Alkaline Phosphatase Total Creatine Kinase CK-MB (CK-2) Serum Total Protein Total Protein Albumin Vshyu-8-Jguexogov Rtlnb-4-Hpbryijmi Gamma Globulins PEP Interpretation HDL Cholesterol TSH Arterial Blood Glucose Arterial Blood Ionized Calcium Urine WBC (Auto) Urine Creatinine Urine Total Protein Crossmatch 05/12/21 05/12/21 05/12/21 00:30 04:10 04:10 WBC RBC 3.13 L Hgb 8.4 L Hct 26.6 L MCH 27 L RDW 15.7 H Plt Count 496 H Seg Neuts % (Manual) Lymphocytes % (Manual) Nucleated RBC % Seg Neutrophils # Man Lymphocytes # (Manual) PT ABG pH POC ABG pCO2 POC ABG pO2 ABG pO2 ABG O2 Saturation ABG Base Excess ABG Hemoglobin ABG Oxyhemoglobin ABG Potassium ABG Chloride ABG Glucose Oxyhemoglobin Carboxyhemoglobin Sodium Potassium Chloride Carbon Dioxide BUN 36 H Creatinine 1.3 H Glucose 182 H POC Glucose 161 H Hemoglobin A1c Lactic Acid Calcium 8.3 L Phosphorus Magnesium Transferrin AST ALT Alkaline Phosphatase Total Creatine Kinase CK-MB (CK-2) Serum Total Protein Total Protein Albumin Slmxl-7-Soauwitai Apwyh-3-Tlzzvejbr Gamma Globulins PEP Interpretation HDL Cholesterol TSH Arterial Blood Glucose Arterial Blood Ionized Calcium Urine WBC (Auto) Urine Creatinine Urine Total Protein Crossmatch 05/12/21 05/12/21 05/12/21 05:24 11:50 17:45 WBC RBC Hgb Hct MCH RDW Plt Count Seg Neuts % (Manual) Lymphocytes % (Manual) Nucleated RBC % Seg Neutrophils # Man Lymphocytes # (Manual) PT ABG pH POC ABG pCO2 POC ABG pO2 ABG pO2 ABG O2 Saturation ABG Base Excess ABG Hemoglobin ABG Oxyhemoglobin ABG Potassium ABG Chloride ABG Glucose Oxyhemoglobin Carboxyhemoglobin Sodium Potassium Chloride Carbon Dioxide BUN Creatinine Glucose POC Glucose 177 H 180 H 187 H Hemoglobin A1c Lactic Acid Calcium Phosphorus Magnesium Transferrin AST ALT Alkaline Phosphatase Total Creatine Kinase CK-MB (CK-2) Serum Total Protein Total Protein Albumin Gzbdv-3-Wzxlzjtba Iuynp-6-Tfruthvxp Gamma Globulins PEP Interpretation HDL Cholesterol TSH Arterial Blood Glucose Arterial Blood Ionized Calcium Urine WBC (Auto) Urine Creatinine Urine Total Protein Crossmatch 05/12/21 05/13/21 05/13/21 23:20 04:24 04:24 WBC RBC 3.10 L Hgb 8.5 L Hct 26.3 L MCH RDW 15.6 H Plt Count 503 H Seg Neuts % (Manual) Lymphocytes % (Manual) Nucleated RBC % Seg Neutrophils # Man Lymphocytes # (Manual) PT ABG pH POC ABG pCO2 POC ABG pO2 ABG pO2 ABG O2 Saturation ABG Base Excess ABG Hemoglobin ABG Oxyhemoglobin ABG Potassium ABG Chloride ABG Glucose Oxyhemoglobin Carboxyhemoglobin Sodium Potassium Chloride Carbon Dioxide BUN 30 H Creatinine Glucose 138 H POC Glucose 142 H Hemoglobin A1c Lactic Acid Calcium 8.3 L Phosphorus Magnesium 1.60 L Transferrin AST ALT Alkaline Phosphatase Total Creatine Kinase CK-MB (CK-2) Serum Total Protein Total Protein Albumin Xeqqc-0-Uzgxcnbsi Fnprt-1-Angxaniwx Gamma Globulins PEP Interpretation HDL Cholesterol TSH Arterial Blood Glucose Arterial Blood Ionized Calcium Urine WBC (Auto) Urine Creatinine Urine Total Protein Crossmatch 05/13/21 05/13/21 05/13/21 05:29 11:44 16:52 WBC RBC Hgb Hct MCH RDW Plt Count Seg Neuts % (Manual) Lymphocytes % (Manual) Nucleated RBC % Seg Neutrophils # Man Lymphocytes # (Manual) PT ABG pH POC ABG pCO2 POC ABG pO2 ABG pO2 ABG O2 Saturation ABG Base Excess ABG Hemoglobin ABG Oxyhemoglobin ABG Potassium ABG Chloride ABG Glucose Oxyhemoglobin Carboxyhemoglobin Sodium Potassium Chloride Carbon Dioxide BUN Creatinine Glucose POC Glucose 128 H 148 H 160 H Hemoglobin A1c Lactic Acid Calcium Phosphorus Magnesium Transferrin AST ALT Alkaline Phosphatase Total Creatine Kinase CK-MB (CK-2) Serum Total Protein Total Protein Albumin Erpjo-9-Dejoeling Nywoy-0-Figdwhhdw Gamma Globulins PEP Interpretation HDL Cholesterol TSH Arterial Blood Glucose Arterial Blood Ionized Calcium Urine WBC (Auto) Urine Creatinine Urine Total Protein Crossmatch 05/13/21 05/14/21 05/14/21 23:25 04:43 04:43 WBC RBC 3.02 L Hgb 8.3 L Hct 25.6 L MCH RDW 15.5 H Plt Count 482 H Seg Neuts % (Manual) Lymphocytes % (Manual) Nucleated RBC % Seg Neutrophils # Man Lymphocytes # (Manual) PT ABG pH POC ABG pCO2 POC ABG pO2 ABG pO2 ABG O2 Saturation ABG Base Excess ABG Hemoglobin ABG Oxyhemoglobin ABG Potassium ABG Chloride ABG Glucose Oxyhemoglobin Carboxyhemoglobin Sodium Potassium Chloride Carbon Dioxide BUN 29 H Creatinine Glucose 192 H POC Glucose 167 H Hemoglobin A1c Lactic Acid Calcium 8.1 L Phosphorus Magnesium Transferrin AST ALT Alkaline Phosphatase Total Creatine Kinase CK-MB (CK-2) Serum Total Protein Total Protein Albumin Bcydw-9-Mnkmdasgm Alqkh-7-Thvjulusz Gamma Globulins PEP Interpretation HDL Cholesterol TSH Arterial Blood Glucose Arterial Blood Ionized Calcium Urine WBC (Auto) Urine Creatinine Urine Total Protein Crossmatch 05/14/21 05/14/21 05/14/21 05:37 10:57 10:59 WBC RBC Hgb Hct MCH RDW Plt Count Seg Neuts % (Manual) Lymphocytes % (Manual) Nucleated RBC % Seg Neutrophils # Man Lymphocytes # (Manual) PT ABG pH POC ABG pCO2 POC ABG pO2 ABG pO2 ABG O2 Saturation ABG Base Excess ABG Hemoglobin ABG Oxyhemoglobin ABG Potassium ABG Chloride ABG Glucose Oxyhemoglobin Carboxyhemoglobin Sodium Potassium Chloride Carbon Dioxide BUN Creatinine Glucose POC Glucose 190 H 215 H Hemoglobin A1c Lactic Acid Calcium Phosphorus Magnesium Transferrin AST ALT Alkaline Phosphatase Total Creatine Kinase CK-MB (CK-2) Serum Total Protein Total Protein Albumin Yiuhl-3-Fzezdzqvt Ctpjd-8-Etbwplvjc Gamma Globulins PEP Interpretation HDL Cholesterol TSH Arterial Blood Glucose Arterial Blood Ionized Calcium Urine WBC (Auto) 8.0 H Urine Creatinine Urine Total Protein Crossmatch 05/14/21 05/14/21 05/15/21 18:06 23:41 04:09 WBC 11.5 H RBC 2.80 L Hgb 7.7 L Hct 23.6 L MCH RDW 15.3 H Plt Count Seg Neuts % (Manual) Lymphocytes % (Manual) Nucleated RBC % Seg Neutrophils # Man Lymphocytes # (Manual) PT ABG pH POC ABG pCO2 POC ABG pO2 ABG pO2 ABG O2 Saturation ABG Base Excess ABG Hemoglobin ABG Oxyhemoglobin ABG Potassium ABG Chloride ABG Glucose Oxyhemoglobin Carboxyhemoglobin Sodium Potassium Chloride Carbon Dioxide BUN Creatinine Glucose POC Glucose 166 H 189 H Hemoglobin A1c Lactic Acid Calcium Phosphorus Magnesium Transferrin AST ALT Alkaline Phosphatase Total Creatine Kinase CK-MB (CK-2) Serum Total Protein Total Protein Albumin Xvpza-4-Oopbffjed Bssfj-8-Fegmdygjr Gamma Globulins PEP Interpretation HDL Cholesterol TSH Arterial Blood Glucose Arterial Blood Ionized Calcium Urine WBC (Auto) Urine Creatinine Urine Total Protein Crossmatch 05/15/21 05/15/21 05/15/21 04:09 05:51 11:33 WBC RBC Hgb Hct MCH RDW Plt Count Seg Neuts % (Manual) Lymphocytes % (Manual) Nucleated RBC % Seg Neutrophils # Man Lymphocytes # (Manual) PT ABG pH POC ABG pCO2 POC ABG pO2 ABG pO2 ABG O2 Saturation ABG Base Excess ABG Hemoglobin ABG Oxyhemoglobin ABG Potassium ABG Chloride ABG Glucose Oxyhemoglobin Carboxyhemoglobin Sodium Potassium Chloride Carbon Dioxide BUN 22 H Creatinine Glucose 148 H POC Glucose 161 H 163 H Hemoglobin A1c Lactic Acid Calcium 8.2 L Phosphorus 2.00 L D Magnesium Transferrin AST ALT Alkaline Phosphatase Total Creatine Kinase CK-MB (CK-2) Serum Total Protein Total Protein Albumin Rzutr-7-Cziubpjbm Cjkpq-4-Rrmrpygxf Gamma Globulins PEP Interpretation HDL Cholesterol TSH Arterial Blood Glucose Arterial Blood Ionized Calcium Urine WBC (Auto) Urine Creatinine Urine Total Protein Crossmatch 05/15/21 05/16/21 05/16/21 23:58 04:24 04:24 WBC 13.0 H RBC 2.79 L Hgb 7.6 L Hct 23.7 L MCH 27 L RDW 15.9 H Plt Count Seg Neuts % (Manual) Lymphocytes % (Manual) Nucleated RBC % Seg Neutrophils # Man Lymphocytes # (Manual) PT ABG pH POC ABG pCO2 POC ABG pO2 ABG pO2 ABG O2 Saturation ABG Base Excess ABG Hemoglobin ABG Oxyhemoglobin ABG Potassium ABG Chloride ABG Glucose Oxyhemoglobin Carboxyhemoglobin Sodium Potassium 3.5 L Chloride 107.9 H Carbon Dioxide BUN 20 H Creatinine Glucose 157 H POC Glucose 141 H Hemoglobin A1c Lactic Acid Calcium 8.3 L Phosphorus Magnesium Transferrin AST ALT Alkaline Phosphatase Total Creatine Kinase CK-MB (CK-2) Serum Total Protein Total Protein Albumin Fwmov-8-Rdnskznbg Uekjk-6-Pozqxbbok Gamma Globulins PEP Interpretation HDL Cholesterol TSH Arterial Blood Glucose Arterial Blood Ionized Calcium Urine WBC (Auto) Urine Creatinine Urine Total Protein Crossmatch 05/16/21 05/16/21 05/16/21 05:24 11:58 18:06 WBC RBC Hgb Hct MCH RDW Plt Count Seg Neuts % (Manual) Lymphocytes % (Manual) Nucleated RBC % Seg Neutrophils # Man Lymphocytes # (Manual) PT ABG pH POC ABG pCO2 POC ABG pO2 ABG pO2 ABG O2 Saturation ABG Base Excess ABG Hemoglobin ABG Oxyhemoglobin ABG Potassium ABG Chloride ABG Glucose Oxyhemoglobin Carboxyhemoglobin Sodium Potassium Chloride Carbon Dioxide BUN Creatinine Glucose POC Glucose 157 H 137 H 134 H Hemoglobin A1c Lactic Acid Calcium Phosphorus Magnesium Transferrin AST ALT Alkaline Phosphatase Total Creatine Kinase CK-MB (CK-2) Serum Total Protein Total Protein Albumin Yufcb-3-Dkplmgdzy Xxyjq-9-Ybricnvbn Gamma Globulins PEP Interpretation HDL Cholesterol TSH Arterial Blood Glucose Arterial Blood Ionized Calcium Urine WBC (Auto) Urine Creatinine Urine Total Protein Crossmatch 05/17/21 05/17/21 05/17/21 00:26 04:14 04:14 WBC 11.9 H RBC 2.91 L Hgb 7.4 L Hct 24.6 L MCH 25 L RDW 15.4 H Plt Count Seg Neuts % (Manual) Lymphocytes % (Manual) Nucleated RBC % Seg Neutrophils # Man Lymphocytes # (Manual) PT 15.4 H ABG pH POC ABG pCO2 POC ABG pO2 ABG pO2 ABG O2 Saturation ABG Base Excess ABG Hemoglobin ABG Oxyhemoglobin ABG Potassium ABG Chloride ABG Glucose Oxyhemoglobin Carboxyhemoglobin Sodium Potassium Chloride Carbon Dioxide BUN Creatinine Glucose POC Glucose 121 H Hemoglobin A1c Lactic Acid Calcium Phosphorus Magnesium Transferrin AST ALT Alkaline Phosphatase Total Creatine Kinase CK-MB (CK-2) Serum Total Protein Total Protein Albumin Ndlvr-2-Plfytyyhi Tpbvu-8-Zwfxyaiwg Gamma Globulins PEP Interpretation HDL Cholesterol TSH Arterial Blood Glucose Arterial Blood Ionized Calcium Urine WBC (Auto) Urine Creatinine Urine Total Protein Crossmatch 05/17/21 05/17/21 05/17/21 04:14 05:19 13:14 WBC RBC Hgb Hct MCH RDW Plt Count Seg Neuts % (Manual) Lymphocytes % (Manual) Nucleated RBC % Seg Neutrophils # Man Lymphocytes # (Manual) PT ABG pH POC ABG pCO2 POC ABG pO2 ABG pO2 ABG O2 Saturation ABG Base Excess ABG Hemoglobin ABG Oxyhemoglobin ABG Potassium ABG Chloride ABG Glucose Oxyhemoglobin Carboxyhemoglobin Sodium Potassium Chloride 111.3 H Carbon Dioxide BUN 18 H Creatinine Glucose 129 H POC Glucose 117 H 122 H Hemoglobin A1c Lactic Acid Calcium Phosphorus Magnesium Transferrin AST ALT Alkaline Phosphatase Total Creatine Kinase CK-MB (CK-2) Serum Total Protein Total Protein Albumin Rtczd-4-Dgxxbeill Hdstn-7-Gfkmcomvp Gamma Globulins PEP Interpretation HDL Cholesterol TSH Arterial Blood Glucose Arterial Blood Ionized Calcium Urine WBC (Auto) Urine Creatinine Urine Total Protein Crossmatch 05/17/21 05/17/21 05/18/21 17:46 23:45 05:51 WBC RBC Hgb Hct MCH RDW Plt Count Seg Neuts % (Manual) Lymphocytes % (Manual) Nucleated RBC % Seg Neutrophils # Man Lymphocytes # (Manual) PT ABG pH POC ABG pCO2 POC ABG pO2 ABG pO2 ABG O2 Saturation ABG Base Excess ABG Hemoglobin ABG Oxyhemoglobin ABG Potassium ABG Chloride ABG Glucose Oxyhemoglobin Carboxyhemoglobin Sodium Potassium Chloride Carbon Dioxide BUN Creatinine Glucose POC Glucose 144 H 188 H 197 H Hemoglobin A1c Lactic Acid Calcium Phosphorus Magnesium Transferrin AST ALT Alkaline Phosphatase Total Creatine Kinase CK-MB (CK-2) Serum Total Protein Total Protein Albumin Ywrsp-1-Hjtyfntyf Jeroj-4-Bfhloqyrt Gamma Globulins PEP Interpretation HDL Cholesterol TSH Arterial Blood Glucose Arterial Blood Ionized Calcium Urine WBC (Auto) Urine Creatinine Urine Total Protein Crossmatch 05/18/21 05/18/21 05/18/21 11:18 15:57 23:54 WBC RBC Hgb Hct MCH RDW Plt Count Seg Neuts % (Manual) Lymphocytes % (Manual) Nucleated RBC % Seg Neutrophils # Man Lymphocytes # (Manual) PT ABG pH POC ABG pCO2 POC ABG pO2 ABG pO2 ABG O2 Saturation ABG Base Excess ABG Hemoglobin ABG Oxyhemoglobin ABG Potassium ABG Chloride ABG Glucose Oxyhemoglobin Carboxyhemoglobin Sodium Potassium Chloride Carbon Dioxide BUN Creatinine Glucose POC Glucose 183 H 197 H 146 H Hemoglobin A1c Lactic Acid Calcium Phosphorus Magnesium Transferrin AST ALT Alkaline Phosphatase Total Creatine Kinase CK-MB (CK-2) Serum Total Protein Total Protein Albumin Gzanw-1-Rrxkzdwwx Butdi-8-Bodfphqdi Gamma Globulins PEP Interpretation HDL Cholesterol TSH Arterial Blood Glucose Arterial Blood Ionized Calcium Urine WBC (Auto) Urine Creatinine Urine Total Protein Crossmatch 05/19/21 05/19/21 05/19/21 05:16 07:12 07:12 WBC 12.7 H RBC 2.93 L Hgb 7.8 L Hct 24.6 L MCH 27 L RDW 15.7 H Plt Count Seg Neuts % (Manual) Lymphocytes % (Manual) Nucleated RBC % Seg Neutrophils # Man Lymphocytes # (Manual) PT 15.2 H ABG pH POC ABG pCO2 POC ABG pO2 ABG pO2 ABG O2 Saturation ABG Base Excess ABG Hemoglobin ABG Oxyhemoglobin ABG Potassium ABG Chloride ABG Glucose Oxyhemoglobin Carboxyhemoglobin Sodium Potassium Chloride Carbon Dioxide BUN Creatinine Glucose POC Glucose 164 H Hemoglobin A1c Lactic Acid Calcium Phosphorus Magnesium Transferrin AST ALT Alkaline Phosphatase Total Creatine Kinase CK-MB (CK-2) Serum Total Protein Total Protein Albumin Wbatx-8-Ywfnykkuo Gfkny-7-Cfskmyced Gamma Globulins PEP Interpretation HDL Cholesterol TSH Arterial Blood Glucose Arterial Blood Ionized Calcium Urine WBC (Auto) Urine Creatinine Urine Total Protein Crossmatch 05/19/21 05/19/21 07:12 11:14 WBC RBC Hgb Hct MCH RDW Plt Count Seg Neuts % (Manual) Lymphocytes % (Manual) Nucleated RBC % Seg Neutrophils # Man Lymphocytes # (Manual) PT ABG pH POC ABG pCO2 POC ABG pO2 ABG pO2 ABG O2 Saturation ABG Base Excess ABG Hemoglobin ABG Oxyhemoglobin ABG Potassium ABG Chloride ABG Glucose Oxyhemoglobin Carboxyhemoglobin Sodium Potassium Chloride 109.1 H Carbon Dioxide BUN Creatinine Glucose 174 H POC Glucose 158 H Hemoglobin A1c Lactic Acid Calcium 8.0 L Phosphorus Magnesium Transferrin AST ALT Alkaline Phosphatase Total Creatine Kinase CK-MB (CK-2) Serum Total Protein Total Protein Albumin Snwqf-9-Frggxdsyp Koahd-1-Gkpdxxgck Gamma Globulins PEP Interpretation HDL Cholesterol TSH Arterial Blood Glucose Arterial Blood Ionized Calcium Urine WBC (Auto) Urine Creatinine Urine Total Protein Crossmatch
--- NOTE | 2021-05-19 13:39 | Progress Note ---
Assessment and Plan Assessment and plan: This is a 80-year-old female long-term resident with GERD, hypothyroidism, hyperlipidemia, schizophrenia and dementia admitted with hypothermia, hyponatremia, hypokalemia, lactic acidosis, acute kidney injury, rhabdomyolysis and hyperosmolar nonketotic state. Acute CVA, acute metabolic encephalopathy, normal pressure hydrocephalus -CT head shows lateral ventricles and third ventricle dilation, raises possibility of normal pressure hydrocephalus -Neurology and neurosurgery consulted, appreciate recommendations -neurosurgery has no acute interventions -04/29 s/p spinal tap removal 24 mL, mental is unchanged -csf fluid showed {14 wbc,324 rbc,normal protein and glucose ,c/s is unremarkable so far} -MRI brain is remarkable for multiple ischemic event cortical as well as subcortical in both hemisphere and in all distribuation with slight petechial hemorrhage is noted findings is suggestive of possible embolic event with water shed infarct can not be totally excluded. -MRA/MRV completed-see chart for details - source of emboli not found -LINCOLN not successful -ASA 81 and lipitor -LDL noted -PT/ST/OT consulted -Aspiration/seizure precautions -Maintain sleep-wake cycle -Avoid delirium -Correct electrolyte derangements -Hold off on restarting home antipsychotic medications when obtained -Risperidone 3 mg, Donepazil 5 mg Acute hypoxic respiratory failure -s/p Bipap and ventimask -s/p bronchoscopy on 04/26 and trached 05/13 -Intubated 04/26 with 7.5 oett at 22 lips -Am vent settings: AC rate 14, tidal volume 450, PEEP 6, FiO2 30% -see RT notes for titration -PSV as tolerated -s/p racimec epi x2 04/22 and 04/23 preintubation -SPO2 monitoring -VAP bundle Acute kidney injury likely secondary to vasomotor nephropathy, urinary retention, Hypokalemia, hypo magnesium Pay[place], hyperphosphatemia -FeNA 0.50 indicating prerenal sate -Nephrology consulted, appreciate recommendations -HD initiated 04/27 and DC 05/13 -Luther catheter placed for strict intake and output; changed 05/02 -d/c to purwick -Avoid nephrotoxic medications -Trend BMP, CK -Renally dose medications -renal US WNL per read Sepsis likely 2/2 UTI and PNA -ID consulted, appreciate recommendations -COVID-19 PCR negative -04/26/2021 sputum culture: Roselyn nonalbicans -04/29/2021 UA showed significant pyuria. -UC Roselyn-> fluconazole -Lumbar puncture with CSF showing 14 WBC, 324 RBC, glucose 161, protein 51. -Abx per ID: s/p IV meropenem, renally adjusted + fluconazole -Trend WBC and fever curve -f/u cultures Hypoalbuminemia, transaminitis -Presented with transaminitis -Trend LFTs -Ntr consult for TF -PEG with IR scheduled for tomorrow 05/19 -N.p.o. after midnight -FWF -BR: Senokot -PPI -Nutritional supplementation Hypotension -s/p Vasopressor support with Levophed -MAP goal above 65 -s/p Midodrine -Blood pressure monitoring per protocol -Home amlodipine restarted Anemia -HIT (-) -Trend CBC -Transfuse to hemoglobin less than 7 -s/p 1 unit PRBC -SCD to bilateral lower extremities while in bed -BUE dopplar US negative for DVT s/p HHNK, h/o hypothyroidism -Restarted home levothyroxine (50 mcg q day) -s/p Insulin drip x2 -SSI, basal and nph -TSH 6.04, T4 0.93 -Avoid hypoglycemia The high probability of a clinically significant, sudden or life threatening deterioration of the [multi] system(s) required my full and direct attention, intervention and personal management. The aggregate critical care time was [60] minutes. This time is in addition to time spent performing reported procedures but includes the following: [x] Data Review and interpretation [x] Patient assessment and monitoring of vital signs [x] Documentation [x] Medication orders and management Disposition Plan: icu Total Time Spent with Patient (Minutes): 60 History Interval history: This is a 80-year-old female who was long-term resident at [facility] with GERD, hypothyroidism, hyperlipidemia, schizophrenia and dementia presented to the emergency department on 04/20 after being found unresponsive by the staff via EMS. Per EMS glucose levels read as high. Work-up in the emergency department revealed severe hypernatremia, leukocytosis, metabolic acidosis, hyperchloremia, elevated BUN/creatinine, lactic acidosis and hyperglycemia. Patient was also hypothermic on admit. CT head showed findings suggestive of the possibility of normal pressure hydrocephalus. Patient was admitted to the hospitalist service with acute metabolic encephalopathy, diabetic hyperosmolar nonketotic state, acute kidney injury, hypernatremia, rhabdomyolysis and leukocytosis with consults to nephrology and [facility]. 04/21: Given 1 L LR bolus per nephrology and D5W increased to 125 mL's per hour, COVID-19 PCR pending, CXR and ABG ordered as patient was weaned from BiPAP to 3 L nasal cannula however was uptitrated back to nonrebreather. Will obtain blood cultures x2 given her leukocytosis and hypothermia. Replace potassium. Neurosurgery and neurology consulted and Luther catheter placed. 04/22: Improvement to sodium noted, slight hypokalemia which will be repleted, slight improvement to renal function, LFTs and rhabdomyolysis. Seen by neurosurgery today. Patient still making urine. transition to ssi and start TF as AG 15 04/23/2021: Given racemic epinephrine again due to stridor, continue IV fluids per nephrology, continue to trend sodium and BMP. 04/24/2021: 70/30 increased d/t hyperglycemia but recent BMP showed BG>300, gave additional 5 units IV insulin and ordered 5 units TID scheduled. However after IV insulin her PCOT was 400. Start on insulin gtt for hyperglycemia. Per RN she was not of IV D5 overnight d/t having one IV which was needed for emergency. Day RN did start dextrose. Remains with hyperglycemia. 04/25: Patient obtunded, withdrawal to pain only, on 50%Venti mask SPO2 abobe 92%. Plan to transition to SubQ insulin. Patient with mild hypernatremia this am, FWF added, will stop IVF for now. 04/26: Patient s/p intubation this am. Mentation is unchanged, plan for MRI brain today per NeuroSurg. Still hyperglycemic, hypernatremia improved, D5W D/katlyn, and basal insulin adjusted. 04/27: Bronch overnight. CXR with mild improvement. D/w Nephro plan for HD today, RIJ VasCath inserted. MRI on hold per [facility] patient is too unstable at this time, plan for possible spinal drained tomorrow to see if mentation will improve. 04/28: Tolerated HD overnight, only UF. Mentation remains the same. D/w [facility] plan for possible large volume spinal tap under fluoroscopy today. Plan for possible HD again today. Continue FWF for elevated Na. 04/29: MARY overnight. Plan for spinal tap this am. febrile overnight with leukocytosis, remains on pressors and more tachycardic now. Will panculture patient, and empiric IV was initiated. Remains hyperglycemic, basal insulin adjusted. 04/30: Patient's mentation remains unchanged post spinal tap. Plan for possible MRI brain next week. Afebrile overnight and leukocytosis improved, However, vent settings are going up and this am ABG with hypoxia, this am CXR with worsening opacities. Patient with 3+ pitting edema. Continue HD per Nephro. Continue current empiric IV abx, f/u on culture data, might need to get ID on board if worsen. 05/01: Mentation is unchanged, still on pressors. Febrile this am, continue IV abx, ID consulted. 3L out yesterday, plan for HD again tomorrow. Plt count improved, might need to restart AC, will D/w CCM. 05/02: No change in mentation and she is now noted to be decorticating to pain -> MRI brain ordered. Scheduled for HD today. ID consult completed. 05/03: Neurology consulted given MRI findings of multiple acute CVAs, LINCOLN ordered, EEG pending, started on aspirin and Lipitor. updated POA 05/04: Received hemodialysis today, will schedule for LINCOLN today however HD was ongoing at the time neurology will obtain MRA brain and neck then consider LINCOLN, increasing midodrine to aid in weaning Levophed. 05/05: MRA/MRV completed today, urine culture grew Roselyn and was started on fluconazole, LINCOLN tentatively scheduled for tomorrow. Resume tube feeding and n.p.o. at midnight. 05/06: Patient was scheduled for LINCOLN which was attempted however patient became hypotensive and the procedure was aborted. She received HD today. No acute events reported overnight. Tube feedings resumed. 05/07: No acute changes overnight. 05/08: May need permacath, goals of care to be discussed and will likely happen after neuro recommendations tomorrow since LINCOLN was unable to be completed. No acute events overnight. Replete mag, decreased midodrine. 05/09: MARY overnight. Patient remains unresponsive. No HD today per Nephro, low K repleted. D/w CCM plan for possible conference call with patient's POA tomorrow to further discuss plan of care and possible alternatives. 05/10: Mentation unchanged. Given patient multiple failed PST, plan for possible trach and PEG per [facility]. General Surgery consulted. No plan for HD today, low K repleted. Proph AC resumed, plt is stable. 05/11: Na remains elevated, continue FWF. Mildly hypertensive, continue PRN Hydral for SBP> 170. Possible trach and Peg on sunday by Gen. Surgery. 05/12: Renal function continue to improve, no indication for any more HD, VasCath D/katlyn. Hypernatremia improved, D/C IVF continue FWF. Hypertensive overnight, Norvasc added and PRN labetalol for SBP greater than 170. NPO After midnight tonight for possible trach and PEG in the am by Gen surgery 05/13: MARY overnight. Plan for Trach and PEG today by Gen. Surgery. Per case management arrangement made for possible LTAC tomorrow. 05/14: s/p tracheostomy, no signs of any complications noted. Febrile this am with low BP and tachycardia, WBcs wnr. Orders placed X1L of IVF, UA, and blood culture. Awaiting PEGT placement by IR. D/C planning for LTAC possibly next week. 05/15: Remains stable on the vent. Mentation unchanged. Remains with low grade fevers, BP normalized post IVF. Awaiting PEGT placement by IR. Electrolytes repleted, repeat lab in the am 05/16: Patient will likely have PEG tube placed tomorrow with IR, potassium repleted, PSV today for approximately 1 hour and 30 minutes 05/17: No acute events reported overnight, PEG tube planned for by IR. Hopeful discharge to LTAC post PEG. Downtrending noted hemoglobin/hematocrit. Continue to monitor. 05/18: Awaiting PEG tube placement. N.p.o. after midnight. Will obtain a.m. labs 05/19: IR PEG tube placement today. Will need to monitor 24 hours post procedure. Communicated to CM via [facility]. No acute events overnight. NGT replaced for pro cedure. Hospitalist Physical - Constitutional Vitals: Temp Pulse Resp BP Pulse Ox 99.9 F H 100 H 14 103/66 99 05/19/21 11:29 05/19/21 12:01 05/19/21 12:01 05/19/21 12:01 05/19/21 12:01 General appearance: Present: no acute distress, other (Intubated nonresponsive) - EENT Eyes: Present: PERRL, EOM intact ENT: hearing intact, dentition normal - Neck Neck: Present: normal ROM - Respiratory Respiratory effort: normal Respiratory: bilateral: diminished - Cardiovascular Rhythm: regular Heart Sounds: Present: S1 & S2. Absent: systolic murmur, diastolic murmur - Extremities Extremities: no ischemia, pulses intact, pulses symmetrical Peripheral Pulses: within normal limits - Abdominal General gastrointestinal: soft, non-tender, non-distended, normal bowel sounds - Integumentary Integumentary: Present: warm, dry - Psychiatric Psychiatric: other - Neurologic Neurologic: other (intact cough/gag, perrla) - Allied Health Allied health notes reviewed: nursing, RT, social work HEART Score - HEART Score Troponin: Troponin T 0.021 ng/mL (0.00-0.029) 04/20/21 17:10 Results - Labs CBC & Chem 7: 05/19/21 07:12 05/19/21 07:12 Labs: Laboratory Last Values WBC 12.7 K/mm3 (4.5-11.0) H 05/19/21 07:12 RBC 2.93 M/mm3 (3.65-5.03) L 05/19/21 07:12 Hgb 7.8 gm/dl (10.1-14.3) L 05/19/21 07:12 Hct 24.6 % (30.3-42.9) L 05/19/21 07:12 MCV 84 fl (79-97) 05/19/21 07:12 MCH 27 pg (28-32) L 05/19/21 07:12 MCHC 32 % (30-34) 05/19/21 07:12 RDW 15.7 % (13.2-15.2) H 05/19/21 07:12 Plt Count 378 K/mm3 (140-440) 05/19/21 07:12 Add Manual Diff Complete 04/28/21 04:00 Total Counted 100 04/28/21 04:00 Seg Neutrophils % Warehouse Team Member 04/28/21 04:00 Seg Neuts % (Manual) 77.0 % (40.0-70.0) H 04/26/21 09:33 Band Neutrophils % 2.0 % 04/28/21 04:00 Lymphocytes % (Manual) 1.0 % (13.4-35.0) L 04/28/21 04:00 Reactive Lymphs % (Man) 0 % 04/28/21 04:00 Monocytes % (Manual) 1.0 % (0.0-7.3) 04/28/21 04:00 Eosinophils % (Manual) 3.0 % (0.0-4.3) 04/28/21 04:00 Metamyelocytes % 1.0 % 04/28/21 04:00 Myelocytes % 0 % 04/28/21 04:00 Promyelocytes % 0 % 04/28/21 04:00 Blast Cells % 0 % 04/28/21 04:00 Nucleated RBC % 4.0 % (0.0-0.9) H 04/28/21 04:00 Seg Neutrophils # Man 11.6 K/mm3 (1.8-7.7) H 04/28/21 04:00 Band Neutrophils # 0.3 K/mm3 04/28/21 04:00 Lymphocytes # (Manual) 0.1 K/mm3 (1.2-5.4) L 04/28/21 04:00 Abs React Lymphs (Man) 0.0 K/mm3 04/28/21 04:00 Monocytes # (Manual) 0.1 K/mm3 (0.0-0.8) 04/28/21 04:00 Eosinophils # (Manual) 0.4 K/mm3 (0.0-0.4) 04/28/21 04:00 Basophils # (Manual) 0.0 K/mm3 (0.0-0.1) 04/28/21 04:00 Metamyelocytes # 0.1 K/mm3 04/28/21 04:00 Myelocytes # 0.0 K/mm3 04/28/21 04:00 Promyelocytes # 0.0 K/mm3 04/28/21 04:00 Blast Cells # 0.0 K/mm3 04/28/21 04:00 WBC Morphology Not Reportable 04/28/21 04:00 Hypersegmented Neuts Not Reportable 04/28/21 04:00 Hyposegmented Neuts Not Reportable 04/28/21 04:00 Hypogranular Neuts Not Reportable 04/28/21 04:00 Smudge Cells Not Reportable 04/28/21 04:00 Toxic Granulation Not Reportable 04/28/21 04:00 Toxic Vacuolation Not Reportable 04/28/21 04:00 Dohle Bodies Not Reportable 04/28/21 04:00 Pelger-Huet Anomaly Not Reportable 04/28/21 04:00 Moni Rods Not Reportable 04/28/21 04:00 Platelet Estimate Consistent w auto 04/28/21 04:00 Clumped Platelets Not Reportable 04/28/21 04:00 Plt Clumps, EDTA Not Reportable 04/28/21 04:00 Large Platelets Few 04/28/21 04:00 Giant Platelets Not Reportable 04/28/21 04:00 Platelet Satelliting Not Reportable 04/28/21 04:00 Plt Morphology Comment Not Reportable 04/28/21 04:00 RBC Morphology Not Reportable 04/28/21 04:00 Dimorphic RBCs Not Reportable 04/28/21 04:00 Polychromasia Not Reportable 04/28/21 04:00 Hypochromasia Not Reportable 04/28/21 04:00 Poikilocytosis Not Reportable 04/28/21 04:00 Anisocytosis Not Reportable 04/28/21 04:00 Microcytosis Not Reportable 04/28/21 04:00 Macrocytosis Not Reportable 04/28/21 04:00 Spherocytes Not Reportable 04/28/21 04:00 Pappenheimer Bodies Not Reportable 04/28/21 04:00 Sickle Cells Not Reportable 04/28/21 04:00 Target Cells 1+ 04/28/21 04:00 Tear Drop Cells Not Reportable 04/28/21 04:00 Ovalocytes Not Reportable 04/28/21 04:00 Helmet Cells Not Reportable 04/28/21 04:00 Parkinson-Abram Bodies Not Reportable 04/28/21 04:00 [place] Rings Not Reportable 04/28/21 04:00 [place] Cells Not Reportable 04/28/21 04:00 Bite Cells Not Reportable 04/28/21 04:00 Crenated Cell Not Reportable 04/28/21 04:00 Elliptocytes Not Reportable 04/28/21 04:00 Acanthocytes (Spur) Not Reportable 04/28/21 04:00 Rouleaux Not Reportable 04/28/21 04:00 Hemoglobin C Crystals Not Reportable 04/28/21 04:00 Schistocytes Not Reportable 04/28/21 04:00 Malaria parasites Not Reportable 04/28/21 04:00 Herrera Bodies Not Reportable 04/28/21 04:00 Hem Pathologist Commnt No 04/28/21 04:00 PT 15.2 Sec. (12.2-14.9) H 05/19/21 07:12 INR 1.08 (0.87-1.13) 05/19/21 07:12 APTT 36.6 Sec. (24.2-36.6) 04/28/21 05:00 Heparin Anti-Xa, Unfract Negative (Negative) 04/24/21 17:29 ABG pH 7.487 (7.320-7.450) H 05/02/21 04:34 POC ABG pCO2 35.3 mmHg (32.0-48.0) 05/02/21 04:34 ABG pCO2 31.6 mm Hg 04/21/21 15:47 POC ABG pO2 78.6 mmHg (83-108) L 05/02/21 04:34 ABG pO2 168.1 mm Hg (80.0-90.0) H 04/21/21 15:47 POC ABG HCO3 26.1 05/02/21 04:34 ABG HCO3 23.3 mmol/L (20.0-26.0) 04/21/21 15:47 ABG O2 Saturation 96.0 (0-100) 05/02/21 04:34 ABG O2 Content 12.7 (0.0-44) 04/21/21 15:47 POC ABG Base Excess 2.9 05/02/21 04:34 ABG Base Excess 0.3 mmol/L (-2.0-3.0) 04/21/21 15:47 ABG Hemoglobin 11.5 (12.0-17.5) L 05/02/21 04:34 ABG Oxyhemoglobin 95.1 (94-98) 05/02/21 04:34 ABG Carboxyhemoglobin 1.0 % (0.0-5.0) 04/21/21 15:47 ABG Methemoglobin 0.3 (0.0-1.5) 05/02/21 04:34 ABG Sodium 138.6 mmol/L (136.0-145.0) 05/02/21 04:34 ABG Potassium 3.4 mmol/L (3.40-4.50) 05/02/21 04:34 ABG Chloride 105.0 mmol/L (98-107) 05/02/21 04:34 ABG Glucose 122 mg/dL (65-95) H 05/02/21 04:34 VBG pH 7.397 (7.320-7.420) 04/20/21 17:10 Oxyhemoglobin 97.5 % (95.0-99.0) 04/21/21 15:47 Carboxyhemoglobin 0.6 (0.5-1.5) 05/02/21 04:34 FiO2 100 % 04/21/21 15:47 FiO2 % 40.0 05/02/21 04:34 Sodium 143 mmol/L (137-145) 05/19/21 07:12 Potassium 3.9 mmol/L (3.6-5.0) 05/19/21 07:12 Chloride 109.1 mmol/L (98-107) H 05/19/21 07:12 Carbon Dioxide 22 mmol/L (22-30) 05/19/21 07:12 Anion Gap 16 mmol/L 05/19/21 07:12 BUN 16 mg/dL (7-17) 05/19/21 07:12 Creatinine 0.9 mg/dL (0.6-1.2) 05/19/21 07:12 Estimated GFR > 60 ml/min 05/19/21 07:12 BUN/Creatinine Ratio 18 % 05/19/21 07:12 Glucose 174 mg/dL (65-100) H 05/19/21 07:12 POC Glucose 158 mg/dL (70-105) H 05/19/21 11:14 Hemoglobin A1c 17.1 % (4-6) H 04/22/21 15:55 Lactic Acid 1.90 mmol/L (0.7-2.0) 04/20/21 19:56 Calcium 8.0 mg/dL (8.4-10.2) L 05/19/21 07:12 Phosphorus 3.40 mg/dL (2.5-4.5) 05/19/21 07:12 Magnesium 1.70 mg/dL (1.7-2.3) 05/19/21 07:12 Iron 62 ug/dL (37-170) 04/24/21 17:29 TIBC 285 mcg/dL (250-450) 04/24/21 17:29 % Saturation 21.75 % 04/24/21 17:29 Transferrin 112 mg/dl (192-382) L 04/24/21 17:29 Total Bilirubin 0.20 mg/dL (0.1-1.2) 05/03/21 04:00 Direct Bilirubin < 0.2 mg/dL (0-0.2) 04/29/21 04:00 Indirect Bilirubin 0.1 mg/dL 04/29/21 04:00 AST 53 units/L (5-40) H 05/03/21 04:00 ALT 55 units/L (7-56) 05/03/21 04:00 Alkaline Phosphatase 149 units/L (35-129) H 05/03/21 04:00 Ammonia 29.0 umol/L (25-60) 04/20/21 17:10 Total Creatine Kinase 1000 units/L (30-135) H 04/27/21 07:43 CK-MB (CK-2) 36.0 ng/mL (0.0-4.0) H 04/20/21 17:10 CK-MB (CK-2) Rel Index 0.9 (0-4) 04/20/21 17:10 Troponin T 0.021 ng/mL (0.00-0.029) 04/20/21 17:10 Serum Total Protein 5.5 g/dL (6.1-8.1) L 04/22/21 08:59 Total Protein 5.2 g/dL (6.3-8.2) L 05/03/21 04:00 Albumin 1.5 g/dL (3.9-5) L 05/03/21 04:00 Albumin/Globulin Ratio 0.4 % 05/03/21 04:00 Idovr-[id number] 0.6 g/dL (0.2-0.3) H 04/22/21 08:59 Xejuy-4-[id number] 1.0 g/dL (0.5-0.9) H 04/22/21 08:59 Beta Globulins 0.3 g/dL (0.2-0.5) 04/22/21 08:59 Gamma Globulins 0.6 g/dL (0.8-1.7) L 04/22/21 08:59 Abnorm Protein Band 1 see below 04/22/21 08:59 PEP Interpretation see below H 04/22/21 08:59 Triglycerides 80 mg/dL (2-149) 05/04/21 04:48 Cholesterol 90 mg/dL (50-199) 05/04/21 04:48 LDL Cholesterol Direct 51 mg/dL (50-130) 05/04/21 04:48 HDL Cholesterol 24 mg/dL (40-59) L 05/04/21 04:48 Cholesterol/HDL Ratio 3.75 % 05/04/21 04:48 Serotonin Release Assay See scanned result 04/24/21 17:29 TSH 6.040 mlU/mL (0.270-4.200) H 04/20/21 17:10 Free T4 0.93 ng/dL (0.76-1.46) 04/20/21 17:10 Arterial Blood Glucose 122 mg/dL (65-95) H 05/02/21 04:34 Arterial Blood Ionized Calcium 4.5 mg/dL (4.6-5.3) L 04/28/21 05:18 Urine Color Yellow (Yellow) 05/14/21 10:57 Urine Turbidity Clear (Clear) 05/14/21 10:57 Urine pH 7.0 (5.0-7.0) 05/14/21 10:57 Ur Specific [place] 1.012 (1.003-1.030) 05/14/21 10:57 Urine Protein 30 mg/dl mg/dL (Negative) 05/14/21 10:57 Urine Glucose (UA) 150 mg/dL (Negative) 05/14/21 10:57 Urine Ketones Neg mg/dL (Negative) 05/14/21 10:57 Urine Blood Sm (Negative) 05/14/21 10:57 Urine Nitrite Neg (Negative) 05/14/21 10:57 Urine Bilirubin Neg (Negative) 05/14/21 10:57 Urine Urobilinogen < 2.0 mg/dL (<2.0) 05/14/21 10:57 Ur Leukocyte Esterase Tr (Negative) 05/14/21 10:57 Urine WBC (Auto) 8.0 /HPF (0.0-6.0) H 05/14/21 10:57 Urine RBC (Auto) 9.0 /HPF (0.0-6.0) 05/14/21 10:57 U Epithel Cells (Auto) 4.0 /HPF (0-13.0) 04/29/21 13:30 Urine Bacteria (Auto) 1+ /HPF (Negative) 05/14/21 10:57 Urine WBC Clumps 3+ /HPF 04/29/21 13:30 Urine Mucus Few /HPF 05/14/21 10:57 Urine Yeast (Budding) 1+ /HPF 05/14/21 10:57 Urine Osmolality 446 Mosm/kg 04/21/21 08:01 Urine Total Volume 1700 ml 05/08/21 09:34 Urine Creatinine 56.0 mg/dL (0.1-20.0) H 05/08/21 09:34 Ur Creatinine 24 Hour 1.0 (0.8-2.8) 05/08/21 09:34 Urine Sodium 71 mmol/L 04/21/21 08:01 Urine Total Protein 12 mg/dL (5-11.8) H 04/21/21 08:01 CSF Appearance Clear 04/29/21 11:45 CSF Color Colorless 04/29/21 11:45 CSF WBC 14 /mm3 (1-10) 04/29/21 11:45 CSF RBC 324 /mm3 (0-0) 04/29/21 11:45 CSF Seg Neutrophils 50.0 % (0-6) 04/29/21 11:45 CSF Lymphocytes % 40.0 % (40-80) 04/29/21 11:45 CSF Reactive Lymphs Not Reportable 04/29/21 11:45 CSF Monocytes % 10.0 % (15-45) 04/29/21 11:45 CSF Eosinophils % Not Reportable 04/29/21 11:45 CSF Basophils Not Reportable 04/29/21 11:45 CSF Pathologist Review C 04/29/21 11:45 CSF Glucose 161 mg/dL 04/29/21 11:45 CSF Total Protein 51 mg/dL 04/29/21 11:45 Plasma/Serum Alcohol < 0.01 % (0-0.07) 04/20/21 17:10 Heparin-induced Plt Ab Negative (Negative) 04/24/21 17:29 UF Heparin High Dose 1 % Release 04/24/21 17:29 EFE UFH Low Dose 0.1 0 % Release 04/24/21 17:29 EFE UFH Low Dose 0.5 0 % Release 04/24/21 17:29 Coronavirus (PCR) Negative (Negative) 04/21/21 Unknown Hepatitis A IgM Ab Non-reactive (NonReactive) 04/27/21 12:49 Hep Bs Antigen Nonreactive (Negative) 04/27/21 12:49 Hep B Core IgM Ab Non-reactive (NonReactive) 04/27/21 12:49 Hepatitis C Antibody Non-reactive (NonReactive) 04/27/21 12:49 Blood Type O POSITIVE 05/02/21 12:00 Antibody Screen Negative 05/02/21 12:00 Crossmatch See Detail 05/02/21 12:00 Microbiology: Microbiology 05/14/21 15:05 Peripheral/Venous Blood Culture - Preliminary NO GROWTH AFTER 4 DAYS 05/14/21 15:08 Peripheral/Venous Blood Culture - Preliminary NO GROWTH AFTER 4 DAYS Luther/IV: Voiding Method Indwelling Catheter Active Medications - Current Medications Current Medications: Generic Name Dose Route Start Last Admin Trade Name Freq PRN Reason Stop Dose Admin Acetaminophen 650 mg 04/20/21 21:31 05/14/21 09:50 Acetaminophen 325 Mg Tab PO 650 mg Q4H PRN Administration Pain MILD(1-3)/Fever >100.5/TURCIOS Albuterol 2.5 mg 04/22/21 14:49 04/23/21 15:18 Albuterol 2.5 Mg/3 Ml Nebu IH 2.5 mg Q4HRT PRN Administration Shortness Of Breath Amlodipine Besylate 5 mg 05/17/21 10:00 05/18/21 09:42 Amlodipine 5 Mg Tab FEEDTUBE 5 mg QDAY AZIZA Administration Lipase/Protease/Amylase 1 each 04/25/21 14:13 Lipase 10,500/Protease 25,000/Amylase 43,750 (Units) Dr Vasquez FEEDTUBE PRN PRN For Clogged Feeding Tube Aspirin 81 mg 05/04/21 10:00 05/18/21 09:42 Aspirin 81 Mg Tab Chew FEEDTUBE 81 mg QDAY AZIZA Administration Atorvastatin Calcium 40 mg 05/04/21 22:00 05/18/21 21:01 Atorvastatin 40 Mg Tab FEEDTUBE 40 mg QHS AZIZA Administration Dextrose 0 ml 05/16/21 10:50 Dextrose 10% *Hypoglycemia IV PRN PRN Hypoglycemia Famotidine 10 mg 04/27/21 10:00 05/18/21 21:02 Famotidine 10 Mg Tab FEEDTUBE 10 mg BID AZIZA Administration Heparin Sodium (Porcine) 5,000 unit 05/10/21 22:00 05/19/21 10:14 Heparin 5,000 Unit/1 Ml Vial SUB-Q 5,000 unit Q12HR AZIZA Administration Hydrophilic Ointment 1 applic 04/26/21 11:16 Lip Therapy Vaseline TP Q2HR PRN Dry Lips Insulin Human Lispro 0 unit 04/25/21 18:00 05/19/21 12:51 Insulin Lispro 100 Unit/Ml SUB-Q 3 unit Q6HR AZIZA Administration Protocol Labetalol HCl 20 mg 05/12/21 11:34 05/17/21 18:37 Labetalol 20 Mg/4 Ml Inj IV 20 mg Q4H PRN Administration SBP >/=170 Levothyroxine Sodium 50 mcg 05/03/21 06:00 05/19/21 05:16 Levothyroxine 50 Mcg Tab PO Not Given DAILY@0600 [facility] Lorazepam 1 mg 04/26/21 11:15 05/19/21 06:00 Lorazepam 2 Mg/Ml Vial IV 1 mg Q4H PRN Administration Sedation Metoclopramide HCl 5 mg 04/20/21 21:31 Metoclopramide 10 Mg/2 Ml Inj IV Q6H PRN Nausea And Vomiting Multi-Ingred Cream/Lotion/Oil/Oint 1 applic 04/26/21 11:16 Mineral Oil/Petrolatum, White Ophth Oint 3.5 Gm OU Q4HR PRN Dry Eye(s) Ondansetron HCl 4 mg 04/20/21 21:31 Ondansetron 4 Mg/2 Ml Inj IV Q8H PRN Nausea And Vomiting Senna/Docusate Sodium 1 tab 04/26/21 22:00 05/18/21 21:02 Sennosides/Docusate Sodium 8.6/50 Mg Tab FEEDTUBE 1 tab BID AZIZA Administration Simple Syrup 15 ml 04/25/21 14:13 Simple Syrup 15 Ml FEEDTUBE PRN PRN Hypoglycemia Simple Syrup 30 ml 04/25/21 14:13 Simple Syrup 15 Ml FEEDTUBE PRN PRN Hypoglycemia Sodium Bicarbonate 325 mg 04/25/21 14:13 05/18/21 16:11 Sodium Bicarbonate 325 Mg Tab FEEDTUBE 325 mg PRN PRN Administration For Clogged Feeding Tube Sodium Bicarbonate 1,300 mg 04/27/21 14:00 05/18/21 20:50 Sodium Bicarbonate 650 Mg Tab PO 1,300 mg TID AZIZA Administration Sodium Chloride 10 ml 04/20/21 22:00 05/18/21 21:02 Sodium Chloride 0.9% 10 Ml Flush Syringe IV 10 ml BID AZIZA Administration Sodium Chloride 10 ml 04/20/21 21:31 Sodium Chloride 0.9% 10 Ml Flush Syringe IV PRN PRN LINE FLUSH Sodium Chloride 10 ml 05/16/21 09:47 Sodium Chloride 0.9% 50 Ml Ivpb IV PRN PRN FLUSH Nutrition/Malnutrition Assess - Dietary Evaluation Nutrition/Malnutrition Findings: Nutrition Notes Start: 04/21/21 12:15 Freq: Status: Active Protocol: Document 05/17/21 17:15 JOSE (Rec: 05/17/21 17:23 JOSE [id number]) Nutrition Notes Initial or Follow up Brief Note Height 5 ft 2 in Weight 72.4 kg [place] Body Weight (kg) 50.00 BMI 29.2 Weight change and time frame No body weight change reported . Subjective/Other Information RD consult for routine F/U on TF continuation. PEG tube will be placed on to allow discharge to LTAC. PT continues on mechanical ventilation. #1 Nutrition Diagnosis Inadequate energy intake Diagnosis Progress(for reassessment Continues documentation) Nutrition Intervention Follow-Up By: 05/19/21 Additional Comments F/U: PEG placement, TF restart with Glucerna 1.2, vent status
[2021-05-19] MEDS ORDERED: SODIUM CHLORIDE IRRI 500 ML 500 ML IR ONE (13:50)
[2021-05-19] MEDS ORDERED: SODIUM CHLORIDE 0.9% 250ML 250 ML ONE (13:55)
[2021-05-19] MEDS ORDERED: ceFAZolin/Water 2 GM/20 ML 2 GM/20 ML SYRINGE IV ONE (14:12)
[2021-05-19] MEDS: MIDAZOLAM 2 MG/2 ML INJ ONE ×2 (14:16→14:28)
[2021-05-19] MEDS: LIDOCAINE (2%) 20 MG/1 ML VIAL 20 ML MDV INFILTRATI ONE ×2 (14:16→14:20)
[2021-05-19] MEDS ORDERED: LIDOCAINE (1%) 10 MG/1 ML VIAL 20 ML MDV ONE (14:23)
--- NOTE | 2021-05-19 14:55 | Operative Report ---
Operative Report Operative Report: Ultrasound and fluoroscopic guided placement of percutaneous gastrostomy tube Clinical indication: Patient with a history of CVA unable to take p.o. intake. Date: 05/19/2021 Procedure: Following an explanation of the risks, benefits and alternatives; written informed consent was obtained from the next of kin. The patient was brought to the angiographic suite and placed in supine position on the examination table. Initial evaluation of the abdomen with ultrasound demonstrated that the liver margin was adequately displaced from the operative field. The patient's left upper quadrant was prepped and draped in the usual sterile fashion. 1% lidocaine was used liberally for anesthesia. The stomach was insufflated with 600 to 700 mL of room air. Under fluoroscopic guidance, a 18-gauge T tack fastener was advanced towards the anterior wall along the inferior aspect of the stomach. Contrast was injected through the needle which demonstrated prompt opacification of gastric rugae with contrast extending towards the fundus. 2 additional T tack fasteners were then deployed under fluoroscopic guidance with confirmation of positioning with contrast prior to deployment of the T tack. The gastric wall was then securely fastened to the anterior abdominal wall as a T tacks were pulled snugly. Aaron tional lidocaine was then utilized in the center of the triangulated T tacks. An incision was made and dissected down to the abdominal wall using hemostats. An 18-gauge 7cm needle was then advanced into the gastric lumen. Contrast was injected which demonstrated again prompt opacification of the gastric rugae. A 0.035 guidewire was then advanced to the fundus. The needle was removed and a 40 cm Kumpe catheter advanced over the guidewire. The initial guidewire was removed and an advantage guidewire advanced through the catheter coiled in the fundus and advanced towards the inferior aspect of the stomach. The Kumpe catheter was then reinserted and the J-tube introducer wire then advanced through the Kumpe catheter following removal of the advantage wire. The Kumpe catheter was removed. Serial dilation using a telescoping 22 Kinyarwanda dilating peel-away sheath was then performed under fluoroscopy. The introducer was removed with the guidewire left in place. An 18 Kinyarwanda gastrostomy tube was then advanced over the guidewire into the gastric lumen. With the gastrostomy tube fully inserted the peel-away sheath was removed. The balloon was filled with a solution of 1/2 mL of con trast diluted down to 10 mL with normal saline. This allowed visualization of the balloon within the gastric lumen. The balloon was withdrawn to the gastric wall and the skin fastener advanced towards the skin surface along the gastrostomy tube. The guidewire was removed. A final contrast injection was performed through the newly placed G-tube which demonstrates appropriate positioning with prompt opacification of the gastric rugae. Sterile dressing was then applied. The patient tolerated the procedure well. There were no immediate postprocedure complications. Versed was used for anxiolysis given the patient's CVA and nonresponsive status. Continuous cardiopulmonary monitoring was utilized. Impression: Ultrasound and fluoroscopic guided placement of 18 Kinyarwanda gastrostomy tube
[2021-05-20] MEDS: INSULIN LISPRO 100 UNIT/ML SUB-Q SCH ×3 (00:42→12:39)
[2021-05-20 05:23] LABS: Hematocrit 24.9 % (30.3-42.9); Hemoglobin 7.7 gm/dl (10.1-14.3); Mean Corpuscular HGB Conc 31 % (30-34); Mean Corpuscular Volume 84 fl (79-97); Platelet Count 362 K/mm3 (140-440); Red Blood Count 2.96 M/mm3 (3.65-5.03); Red Cell Distribution Width 15.5 % (13.2-15.2)
[2021-05-20] MEDS: LEVOTHYROXINE 50 MCG TAB PO SCH (06:16)
[2021-05-20] MEDS: SODIUM BICARBONATE 650 MG TAB PO SCH ×2 (08:35→14:15)
[2021-05-20] MEDS: SENNOSIDES/DOCUSATE SODIUM 8.6/50 MG TAB FEEDTUBE SCH (10:36)
[2021-05-20] MEDS: amLODIPine 5 MG TAB FEEDTUBE SCH (10:36)
[2021-05-20] MEDS: ASPIRIN 81 MG TAB CHEW FEEDTUBE SCH (10:36)
[2021-05-20] MEDS: FAMOTIDINE 10 MG TAB FEEDTUBE SCH (10:36)
[2021-05-20] MEDS: HEPARIN 5,000 UNIT/1 ML VIAL SUB-Q SCH (11:00)
--- NOTE | 2021-05-20 11:15 | Discharge Summary ---
Providers - Providers Date of Admission: 04/20/21 19:17 Date of discharge: 05/20/21 Attending physician: TACHO RUBALCAVA MD 04/20/21 21:31 Consult to Physician [CONS] Routine Comment: Consulting Provider: AURORA GAYTAN Physician Instructions: Reason For Exam: Hyperosmolar nonketotic state 04/20/21 21:53 Consult to Physician [CONS] Routine Comment: Consulting Provider: WILI RIOJAS Physician Instructions: Reason For Exam: SYED 04/21/21 13:12 Consult to Physician [CONS] Routine Comment: Consulting Provider: SIMONA YEBOAH Physician Instructions: Reason For Exam: ? hydrocephalus 04/21/21 13:27 Consult to Physician [CONS] Routine Comment: called office left mess. sudeep Consulting Provider: SB PADILLA II Physician Instructions: Reason For Exam: Dilated ventricles on CT 04/22/21 14:59 Consult to Dietitian/Nutrition [CONS] Routine Physician Instructions: Reason For Exam: Reason for Consult: Write/Manage Tube Feeding 04/25/21 12:43 Consult to PICC Line RN [CONS] Routine Reason For Exam: Need IV Access Type Line:: Midline 04/25/21 15:12 Midline [Consult to PICC Line RN] [CONS] Routine Reason For Exam: IV access Type Line:: Midline 04/26/21 11:17 Consult to Dietitian/Nutrition [CONS] Routine Physician Instructions: Reason For Exam: Reason for Consult: Evaluate nutritional intake 05/01/21 08:19 Consult to Physician [CONS] Routine Comment: Consulting Provider: JANINE ARANA Physician Instructions: Reason For Exam: Sespsis 05/03/21 08:40 Consult to Physician [CONS] Routine Comment: krishna/ sudeep Consulting Provider: ESTEVAN MAGALLANES Physician Instructions: Reason For Exam: cva 05/03/21 12:08 Occupational Therapy Evaluate and Treat [CONS] Routine Comment: Reason For Exam: cva Physical Therapy Evaluation and Treat [CONS] Routine Comment: Reason For Exam: cva 05/04/21 13:02 Consult to Case Management [CONS] Routine Services Needed at Discharge: Other Comment:: Outpatient HD arrangement to [facility] Additional Physician Instructions: Outpatient HD arrangement to [facility] [address] [address] 05/10/21 15:10 Consult to Physician [CONS] Routine Comment: called office/ sudeep Consulting Provider: LEYDI VIEIRA Physician Instructions: Reason For Exam: Trach and Peg placement, unresponsive 05/13/21 19:28 Consult to Interventional Radiology [CONS] Routine Consulting Provider: MONICA VERNON Reason For Exam: IR guided gastrostomy tube placement Notified:: . Comment:: aborted PEG due to inability to pass EGD past oropharynx Primary care physician: RUBBER GRINDER Hospitalization Condition: Stable Hospital course: History Interval history: This is a 80-year-old female who was detention resident at [facility] with GERD, hypothyroidism, hyperlipidemia, schizophrenia and dementia presented to the emergency department on 04/20 after being found unresponsive by the staff via EMS. Per EMS glucose levels read as high. Work-up in the emergency department revealed severe hypernatremia, leukocytosis, metabolic acidosis, hyperchloremia, elevated BUN/creatinine, lactic acidosis and hyperglycemia. Patient was also hypothermic on admit. CT head showed findings suggestive of the possibility of normal pressure hydrocephalus. Patient was admitted to the hospitalist service with acute metabolic encephalopathy, diabetic hyperosmolar nonketotic state, acute kidney injury, hypernatremia, rhabdomyolysis and leukocytosis with consults to nephrology and CCM. Patient received aggressive IV fluid resuscitation for hypernatremia which has now resolved. Patient was also taken off insulin drip however had to be restarted on it on 04/24 due to hyperglycemia. On 04/26 patient was intubated for bronchoscopy and was eventually trached as she was unable to be weaned off the ventilator. During her stay she was initiated on hemodialysis on 04/27 which was discontinued on 05/12 as patient's BUN/creatinine improved without dialysis. Patient had an MRI for persistent AMS which showed multiple acute CVA and the LINCOLN was unable to be performed. Patient eventually needed to be trached as she was unable to be weaned off ventilator. She was started on midodrine due to prolonged use of Levophed for hypotension but midodrine was eventually stopped due to normotensive/hypotensive state. Patient did receive a large-volume lumbar puncture without any change in mental status during stay before MRI revealed CVA. Patient has failed PSV multiple times. On 05/19 patient received a PEG tube placed by IR as general surgery was unable to place due to anatomy. Patient will be transferred to LTAC for further care. She will need to follow- up with her PCP as needed. Assessment and Plan Acute CVA, acute metabolic encephalopathy, normal pressure hydrocephalus -CT head shows lateral ventricles and third ventricle dilation, raises possibility of normal pressure hydrocephalus -Neurology and neurosurgery consulted, appreciate recommendations -neurosurgery has no acute interventions -04/29 s/p spinal tap removal 24 mL, mental is unchanged -csf fluid showed {14 wbc,324 rbc,normal protein and glucose ,c/s is unremarkable so far} -MRI brain is remarkable for multiple ischemic event cortical as well as subcortical in both hemisphere and in all distribuation with slight petechial hemorrhage is noted findings is suggestive of possible embolic event with water shed infarct can not be totally excluded. -MRA/MRV completed-see chart for details - source of emboli not found -LINCOLN not successful -ASA 81 and lipitor -LDL noted -PT/ST/OT consulted -Aspiration/seizure precautions -Maintain sleep-wake cycle -Avoid delirium -Correct electrolyte derangements -Hold off on restarting home antipsychotic medications when obtained -Risperidone 3 mg, Donepazil 5 mg Acute hypoxic respiratory failure -s/p Bipap and ventimask -s/p bronchoscopy on 04/26 and trached 05/13 -Intubated 04/26 with 7.5 oett at 22 lips -Am vent settings: AC rate 14, tidal volume 450, PEEP 6, FiO2 30% -see RT notes for titration -PSV as tolerated -s/p racimec epi x2 04/22 and 04/23 preintubation -SPO2 monitoring -VAP bundle Acute kidney injury likely secondary to vasomotor nephropathy, urinary retention, Hypokalemia, hypo magnesium [place], hyperphosphatemia -FeNA 0.50 indicating prerenal sate -Nephrology consulted, appreciate recommendations -HD initiated 04/27 and DC 05/13 -Luther catheter placed for strict intake and output; changed 05/02 -d/c to [place] -Avoid nephrotoxic medications -Trend BMP, CK -Renally dose medications -renal US WNL per read Sepsis likely 2/2 UTI and PNA -ID consulted, appreciate recommendations -COVID-19 PCR negative -04/26/2021 sputum culture: Roselyn nonalbicans -04/29/2021 UA showed significant pyuria. -UC Roselyn-> fluconazole -Lumbar puncture with CSF showing 14 WBC, 324 RBC, glucose 161, protein 51. 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 Final Discharge Diagnosis (Prints w/discharge instructions): Acute CVA, acute metabolic encephalopathy, normal pressure hydrocephalus, Acute hypoxic respiratory failure, Acute kidney injury likely secondary to vasomotor nephropathy, urinary retention, Sepsis likely 2/2 UTI and PNA, Hypoalbuminemia, transaminitis, Hypotension (resolved), h/o htn, Anemia, s/p HHNK, h/o hypothyroidism Time spent for discharge: 45 Core Measure Documentation - Palliative Care Palliative Care/ Comfort Measures: Not Applicable - Core Measures Any of the following diagnoses?: stroke - Stroke Discharge Requirements Statin for LDL = or >70 mg/dl on DC: Yes Anticoag for atrial fib/atrial flutter: Not Applicable Antithrombotic for ischemic stroke: Yes Exam - Physical Exam Narrative exam: General appearance: Present: no acute distress, other (Intubated) - EENT Eyes: Present: PERRL, EOM intact ENT: dentition normal - Neck Neck: Present: normal ROM - Respiratory Respiratory effort: normal Respiratory: bilateral: diminished - Cardiovascular Rhythm: regular Heart Sounds: Present: S1 & S2 - Extremities Extremities: no ischemia, pulses intact, pulses symmetrical, normal temperature, normal color Peripheral Pulses: within normal limits - Abdominal General gastrointestinal: soft, non-tender, non-distended, normal bowel sounds - Integumentary Integumentary: Present: warm, dry - Psychiatric Psychiatric: other - Neurologic Neurologic: other (Pupils equal round reactive, opens eyes and attempts to track but does not follow commands.) - Allied Health Allied health notes reviewed: nursing, RT, social work - Constitutional Vitals: Temp Pulse Resp BP Pulse Ox 98.2 F 96 H 15 138/74 100 05/20/21 08:00 05/20/21 10:01 05/20/21 10:01 05/20/21 10:05/20/21 10:01 Plan Activity: advance as tolerated Diet: per dietitian instruction Wound: per wound nurse instructions Special Instructions: record daily BP diary, record blood sugar diary Additional Instructions: continue care to ltach Follow up with: PRIMARY CAREMD [Primary Care Provider] - 3-5 Days
--- NOTE | 2021-05-20 11:27 | Progress Note ---
Assessment and Plan 80 y/o female with altered mental state, severe electrolyte imbalance with presumptive acute renal failure and hypothermia. 05/20/21: Transfer to LTACH today. Continue supportive measures. 05/19/21: Per IR, patient needs to remain in house 24 hours post peg placement so will not transfer today. Will reach out to [facility] to cancel transportation. Continue supportive measures. 05/18/21: Peg tomorrow. NPO after midnight tonight. 05/17/21: Per IR peg on . Continue supportive measures. 05/16/21: Peg at some point. Once pegged transfer to LTACH. Continue PSV as tolerated. 05/13/21: Trach today. Per CM transfer to LTACH tomorrow. Supportive care 05/12/21: Daily PSV trials. NPO after midnight and chemistry in am. Trach tomorrow and then transfer over the weekend if all goes well. 05/11/21: Awaiting trach and peg placement. Discontinue vascath. Daily pSV trials. 05/10/21: Long discussion over phone with POA. Discussed what I felt was prognosis. Per POA, feels best thing to do at this moment is proceed with trach and peg. Will consult surgery for this. Spoke with renal and they feel she chon mas will not need HD anymore. Will keep catheter at least another 24-36 hours and likely remove sometime tomorrow. Continue daily PSV and other supportive measures. Placement post Trach. 05/09/21: Will reach out to neuro for more help. Read their note this am but need a definite plan. Would like to meet/talk with POA about next steps but need a better idea of what her neuro prognosis is. Continue daily PSV trials. Prognosis overall appears to be very guarded to poor. 05/08/21: Continue supportive measures. HD per renal. Follow up neuro recs tomorrow. Need to start talking with family about next steps but need neuro input. Daily pSV to document failing. 05/07/21: Continue supportive measures. HD per renal. Follow up neuro recs tomorrow. Need to start talking with family about next steps but need neuro input. 05/06/21: Await neurology recs now that LINCOLN Could not be done. Based on neurology note, no direct source for stroke on MRA. Patient was seen on this day and can be confirmed by staff. Not sure why my note did not save. 05/05/21: follow up neurology notes. They are discussing with cards the LINCOLN. Continue vent support. Poor prognosis. 05/04/21: follow up MRA when done. LINCOLN pending. HD per renal. Daily PSV trials as tolerated. Poor prognosis given MRI findings and lack of responsiveness off sedation. 05/03/21: Follow up Neurology recs for today. Attempt PSV trials. HD on yesterday. Very very guarded prognosis. 05/02/21: MRI today. Repeat cultures. HD per renal. Once MRI results back will discuss with Neurosurgery to see if anything further should be done. Abx per ID. Overall prognosis is very guarded to poor. 04/29/21: Will reach out to neuro after 24-48 hours post spinal tap pending any change in mentation. If improvement, may need to consider shunt placement. If not, not sure that there is anything they can offer. if they still want MRI, then can obtain. Now spiking temps. Blood cultures and UA. Given time frame in Hospital will place on Vanc and Cefepime. Guarded prognosis. HD per renal. Given anasarca, will ask renal about trying to remove volume. 04/28/21: Will discuss with renal about HD again today. MRI vs LP (large amount). Coags are ok. Will attempt to get at least one of these done today. Patient is still on 80% but sat is 100. Will ask [employer] UP OPERATOR about placing ART line today. Wean FiO2 as tolerated. Guarded prognosis. 04/27/21: HD today per renal. Vascath placed and awaiting CXR for conformation of good placement (done and good). Vent weaning as tolerated for sats >88%. ABG in the AM. Will check Coags in the am and hopeful these are stable. Platelets need to above 50K. Would like to do large volume spinal tap to see if this helps with mentation. Will also obtain MRI once oxygen requirement improves. 04/26/21: WIll electively intubate and then obtain MRI. Pending MRI results, will likely order large volume spinal tap to assess if NPH is a factor or not. Guarded prognosis. Electrolytes are improving. 04/25/21: Continue to follow renal recs. Will reach out to POA either today or tomorrow for further updates. Follow up renal recs. Monitor electrolytes and renal function. Guarded prognosis. 1. Neuro-reached out to neuro surgery, placed consult in regards to CT findings 2. Renal-appreciate help and recs, will follow IV hydration recommendations 3. Blood cultures. Urine was negative 4. Jorge Hugger for temp Guarded prognosis CCT 31 minutes. Subjective Date of service: 05/20/21 Principal diagnosis: Acute respiratory failure Interval history: Peg placed yesterday. No complications. Awaiting transfer to LTACH later today. All others unchanged. Objective Vital Signs - 12hr 05/19/21 05/20/21 05/20/21 23:51 00:00 01:01 Temperature 99.7 F H Pulse Rate 105 H 104 H 106 H Pulse Rate [ 110 H From Monitor] Respiratory 14 14 Rate Blood Pressure 108/73 89/52 104/62 O2 Sat by Pulse 100 100 100 Oximetry O2 Sat by Pulse Oximetry [ Assessment] 05/20/21 05/20/21 05/20/21 02:00 03:00 03:32 Temperature 99.5 F Pulse Rate 105 H 102 H Pulse Rate [ From Monitor] Respiratory 14 14 Rate Blood Pressure 95/60 91/53 O2 Sat by Pulse 100 100 Oximetry O2 Sat by Pulse Oximetry [ Assessment] 05/20/21 05/20/21 05/20/21 04:00 04:17 04:26 Temperature Pulse Rate 99 H 98 H Pulse Rate [ 110 H From Monitor] Respiratory 14 Rate Blood Pressure 111/63 111/63 O2 Sat by Pulse 100 100 Oximetry O2 Sat by Pulse 100 Oximetry [ Assessment] 05/20/21 05/20/21 05/20/21 05:00 06:01 07:00 Temperature Pulse Rate 100 H 104 H 92 H Pulse Rate [ From Monitor] Respiratory 14 23 14 Rate Blood Pressure 101/65 101/65 93/58 O2 Sat by Pulse 100 100 100 Oximetry O2 Sat by Pulse Oximetry [ Assessment] 05/20/21 05/20/21 05/20/21 07:20 08:00 08:01 Temperature 98.2 F Pulse Rate 94 H 97 H Pulse Rate [ From Monitor] Respiratory 20 Rate Blood Pressure 93/58 127/77 O2 Sat by Pulse 100 100 Oximetry O2 Sat by Pulse Oximetry [ Assessment] 05/20/21 05/20/21 09:00 10:01 Temperature Pulse Rate 87 96 H Pulse Rate [ From Monitor] Respiratory 14 15 Rate Blood Pressure 103/61 138/74 O2 Sat by Pulse 100 100 Oximetry O2 Sat by Pulse Oximetry [ Assessment] Constitutional: other (critically ill, somnolent, on vent) Eyes: non-icteric ENT: oropharynx dry Effort: other (tachypneic but not labored) Ascultation: Bilateral: clear Cardiovascular: regular rate and rhythm Gastrointestinal: normoactive bowel sounds Integumentary: normal Extremities: no cyanosis, no edema, pink and warm Neurologic: unable to assess Psychiatric: other (unable to assess) CBC and BMP: 05/20/21 04:29 05/19/21 07:12 ABG, PT/INR, D-dimer: ABG ABG pH 7.487 (7.320-7.450) H 05/02/21 04:34 POC ABG pCO2 35.3 mmHg (32.0-48.0) 05/02/21 04:34 ABG pCO2 31.6 mm Hg 04/21/21 15:47 POC ABG pO2 78.6 mmHg (83-108) L 05/02/21 04:34 ABG pO2 168.1 mm Hg (80.0-90.0) H 04/21/21 15:47 POC ABG HCO3 26.1 05/02/21 04:34 ABG O2 Saturation 96.0 (0-100) 05/02/21 04:34 PT/INR, D-dimer PT 15.2 Sec. (12.2-14.9) H 05/19/21 07:12 INR 1.08 (0.87-1.13) 05/19/21 07:12 Abnormal lab findings: Abnormal Labs 04/20/21 04/20/21 04/20/21 17:10 17:10 17:10 WBC 17.4 H RBC 5.19 H Hgb Hct 46.8 H MCH 27 L RDW 17.2 H Plt Count Seg Neuts % (Manual) 98.0 H Lymphocytes % (Manual) 2.0 L Nucleated RBC % 1.0 H Seg Neutrophils # Man 17.1 H Lymphocytes # (Manual) 0.3 L PT ABG pH POC ABG pCO2 POC ABG pO2 ABG pO2 ABG O2 Saturation ABG Base Excess ABG Hemoglobin ABG Oxyhemoglobin ABG Potassium ABG Chloride ABG Glucose Oxyhemoglobin Carboxyhemoglobin Sodium 173 H* Potassium Chloride 132.9 H Carbon Dioxide 17 L BUN 120 H Creatinine 4.2 H Glucose 762 H* POC Glucose Hemoglobin A1c Lactic Acid Calcium Phosphorus Magnesium 3.80 H Transferrin AST 72 H ALT 63 H Alkaline Phosphatase 148 H Total Creatine Kinase 3697 H CK-MB (CK-2) 36.0 H Serum Total Protein Total Protein Albumin 2.2 L Nhrpg-1-Efowszvqg Udpmh-9-Pyburzcpv Gamma Globulins PEP Interpretation HDL Cholesterol TSH Arterial Blood Glucose Arterial Blood Ionized Calcium Urine WBC (Auto) Urine Creatinine Urine Total Protein Crossmatch 04/20/21 04/20/21 04/20/21 17:10 17:10 18:55 WBC RBC Hgb Hct MCH RDW Plt Count Seg Neuts % (Manual) Lymphocytes % (Manual) Nucleated RBC % Seg Neutrophils # Man Lymphocytes # (Manual) PT ABG pH POC ABG pCO2 POC ABG pO2 ABG pO2 ABG O2 Saturation ABG Base Excess ABG Hemoglobin ABG Oxyhemoglobin ABG Potassium ABG Chloride ABG Glucose Oxyhemoglobin Carboxyhemoglobin Sodium Potassium Chloride Carbon Dioxide BUN Creatinine Glucose POC Glucose 574 H Hemoglobin A1c Lactic Acid 2.60 H* Calcium Phosphorus Magnesium Transferrin AST ALT Alkaline Phosphatase Total Creatine Kinase CK-MB (CK-2) Serum Total Protein Total Protein Albumin Xmhyd-3-Nvxucicik Poeql-9-Hnpihfqbk Gamma Globulins PEP Interpretation HDL Cholesterol TSH 6.040 H Arterial Blood Glucose Arterial Blood Ionized Calcium Urine WBC (Auto) Urine Creatinine Urine Total Protein Crossmatch 04/20/21 04/20/21 04/20/21 22:12 22:58 22:58 WBC RBC Hgb Hct MCH RDW Plt Count Seg Neuts % (Manual) Lymphocytes % (Manual) Nucleated RBC % Seg Neutrophils # Man Lymphocytes # (Manual) PT ABG pH POC ABG pCO2 POC ABG pO2 ABG pO2 ABG O2 Saturation ABG Base Excess ABG Hemoglobin ABG Oxyhemoglobin ABG Potassium ABG Chloride ABG Glucose Oxyhemoglobin Carboxyhemoglobin Sodium 172 H* Potassium 3.2 L Chloride 134.2 H Carbon Dioxide 17 L BUN 112 H Creatinine 3.8 H Glucose 803 H* POC Glucose 554 H Hemoglobin A1c Lactic Acid Calcium 8.3 L Phosphorus Magnesium 3.50 H Transferrin AST ALT Alkaline Phosphatase Total Creatine Kinase CK-MB (CK-2) Serum Total Protein Total Protein Albumin Szbks-0-Hggcqthob Wsfec-7-Jjjkvivkz Gamma Globulins PEP Interpretation HDL Cholesterol TSH Arterial Blood Glucose Arterial Blood Ionized Calcium Urine WBC (Auto) Urine Creatinine Urine Total Protein Crossmatch 04/21/21 04/21/21 04/21/21 00:14 00:22 02:01 WBC RBC Hgb Hct MCH RDW Plt Count Seg Neuts % (Manual) Lymphocytes % (Manual) Nucleated RBC % Seg Neutrophils # Man Lymphocytes # (Manual) PT ABG pH POC ABG pCO2 POC ABG pO2 ABG pO2 ABG O2 Saturation ABG Base Excess ABG Hemoglobin ABG Oxyhemoglobin ABG Potassium ABG Chloride ABG Glucose Oxyhemoglobin Carboxyhemoglobin Sodium 176 H* 175 H* Potassium 2.9 L* 3.0 L Chloride 139.9 H 136.2 H Carbon Dioxide 17 L 19 L BUN 113 H 112 H Creatinine 3.9 H 3.6 H Glucose 729 H* 582 H* POC Glucose > 600 H Hemoglobin A1c Lactic Acid Calcium Phosphorus Magnesium Transferrin AST ALT Alkaline Phosphatase Total Creatine Kinase CK-MB (CK-2) Serum Total Protein Total Protein Albumin Pmegg-9-Hbkrhlzxm Yntkt-9-Nxllyczqa Gamma Globulins PEP Interpretation HDL Cholesterol TSH Arterial Blood Glucose Arterial Blood Ionized Calcium Urine WBC (Auto) Urine Creatinine Urine Total Protein Crossmatch 04/21/21 04/21/21 04/21/21 03:11 03:20 03:41 WBC 14.1 H RBC Hgb Hct MCH 27 L RDW 16.8 H Plt Count 114 L Seg Neuts % (Manual) 97.0 H Lymphocytes % (Manual) 3.0 L Nucleated RBC % 1.0 H Seg Neutrophils # Man 13.7 H Lymphocytes # (Manual) 0.4 L PT ABG pH POC ABG pCO2 POC ABG pO2 ABG pO2 52.3 L ABG O2 Saturation 84.5 L ABG Base Excess -2.9 L ABG Hemoglobin ABG Oxyhemoglobin ABG Potassium ABG Chloride ABG Glucose Oxyhemoglobin 82.9 L Carboxyhemoglobin Sodium Potassium Chloride Carbon Dioxide BUN Creatinine Glucose POC Glucose 404 H Hemoglobin A1c Lactic Acid Calcium Phosphorus Magnesium Transferrin AST ALT Alkaline Phosphatase Total Creatine Kinase CK-MB (CK-2) Serum Total Protein Total Protein Albumin Roihe-5-Wbbfspvdi Xqfrr-0-Rstcihbxw Gamma Globulins PEP Interpretation HDL Cholesterol TSH Arterial Blood Glucose Arterial Blood Ionized Calcium Urine WBC (Auto) Urine Creatinine Urine Total Protein Crossmatch 04/21/21 04/21/21 04/21/21 03:41 04:24 05:45 WBC RBC Hgb Hct MCH RDW Plt Count Seg Neuts % (Manual) Lymphocytes % (Manual) Nucleated RBC % Seg Neutrophils # Man Lymphocytes # (Manual) PT ABG pH POC ABG pCO2 POC ABG pO2 ABG pO2 ABG O2 Saturation ABG Base Excess ABG Hemoglobin ABG Oxyhemoglobin ABG Potassium ABG Chloride ABG Glucose Oxyhemoglobin Carboxyhemoglobin Sodium 179 H* Potassium 2.9 L* Chloride 138.2 H Carbon Dioxide 20 L BUN 111 H Creatinine 3.7 H Glucose 465 H POC Glucose 353 H 280 H Hemoglobin A1c Lactic Acid Calcium Phosphorus Magnesium Transferrin AST 73 H ALT 61 H Alkaline Phosphatase 144 H Total Creatine Kinase CK-MB (CK-2) Serum Total Protein Total Protein Albumin 2.5 L Cidcz-6-Ubltthgow Klhdy-7-Iecffggnw Gamma Globulins PEP Interpretation HDL Cholesterol TSH Arterial Blood Glucose Arterial Blood Ionized Calcium Urine WBC (Auto) Urine Creatinine Urine Total Protein Crossmatch 04/21/21 04/21/21 04/21/21 06:47 08:01 11:11 WBC RBC Hgb Hct MCH RDW Plt Count Seg Neuts % (Manual) Lymphocytes % (Manual) Nucleated RBC % Seg Neutrophils # Man Lymphocytes # (Manual) PT ABG pH POC ABG pCO2 POC ABG pO2 ABG pO2 ABG O2 Saturation ABG Base Excess ABG Hemoglobin ABG Oxyhemoglobin ABG Potassium ABG Chloride ABG Glucose Oxyhemoglobin Carboxyhemoglobin Sodium Potassium Chloride Carbon Dioxide BUN Creatinine Glucose POC Glucose 260 H 68 L Hemoglobin A1c Lactic Acid Calcium Phosphorus Magnesium Transferrin AST ALT Alkaline Phosphatase Total Creatine Kinase CK-MB (CK-2) Serum Total Protein Total Protein Albumin Jxoow-1-Ogptbwozk Vqjxd-6-Vlqqidwre Gamma Globulins PEP Interpretation HDL Cholesterol TSH Arterial Blood Glucose Arterial Blood Ionized Calcium Urine WBC (Auto) Urine Creatinine 44.3 H Urine Total Protein 12 H Crossmatch 04/21/21 04/21/21 04/21/21 12:51 13:41 14:40 WBC RBC Hgb Hct MCH RDW Plt Count Seg Neuts % (Manual) Lymphocytes % (Manual) Nucleated RBC % Seg Neutrophils # Man Lymphocytes # (Manual) PT ABG pH 7.275 L POC ABG pCO2 POC ABG pO2 63.4 L ABG pO2 ABG O2 Saturation ABG Base Excess ABG Hemoglobin 8.4 L ABG Oxyhemoglobin 89.5 L ABG Potassium ABG Chloride 108.0 H ABG Glucose 404 H Oxyhemoglobin Carboxyhemoglobin Sodium Potassium Chloride Carbon Dioxide BUN Creatinine Glucose POC Glucose 146 H 186 H Hemoglobin A1c Lactic Acid Calcium Phosphorus Magnesium Transferrin AST ALT Alkaline Phosphatase Total Creatine Kinase CK-MB (CK-2) Serum Total Protein Total Protein Albumin Fjowe-4-Bnjjimisl Cyhya-3-Sqdqwkkii Gamma Globulins PEP Interpretation HDL Cholesterol TSH Arterial Blood Glucose 404 H Arterial Blood Ionized Calcium Urine WBC (Auto) Urine Creatinine Urine Total Protein Crossmatch 04/21/21 04/21/21 04/21/21 15:47 16:25 17:57 WBC RBC Hgb Hct MCH RDW Plt Count Seg Neuts % (Manual) Lymphocytes % (Manual) Nucleated RBC % Seg Neutrophils # Man Lymphocytes # (Manual) PT ABG pH 7.486 H POC ABG pCO2 POC ABG pO2 ABG pO2 168.1 H ABG O2 Saturation 99.1 H ABG Base Excess ABG Hemoglobin 8.9 L ABG Oxyhemoglobin ABG Potassium ABG Chloride ABG Glucose Oxyhemoglobin Carboxyhemoglobin Sodium Potassium Chloride Carbon Dioxide BUN Creatinine Glucose POC Glucose 172 H 143 H Hemoglobin A1c Lactic Acid Calcium Phosphorus Magnesium Transferrin AST ALT Alkaline Phosphatase Total Creatine Kinase CK-MB (CK-2) Serum Total Protein Total Protein Albumin Ftacw-6-Tmhwhykpa Allyu-4-Vqjraihwa Gamma Globulins PEP Interpretation HDL Cholesterol TSH Arterial Blood Glucose Arterial Blood Ionized Calcium Urine WBC (Auto) Urine Creatinine Urine Total Protein Crossmatch 04/21/21 04/21/21 04/21/21 18:49 19:10 20:26 WBC RBC Hgb Hct MCH RDW Plt Count Seg Neuts % (Manual) Lymphocytes % (Manual) Nucleated RBC % Seg Neutrophils # Man Lymphocytes # (Manual) PT ABG pH POC ABG pCO2 POC ABG pO2 ABG pO2 ABG O2 Saturation ABG Base Excess ABG Hemoglobin ABG Oxyhemoglobin ABG Potassium ABG Chloride ABG Glucose Oxyhemoglobin Carboxyhemoglobin Sodium 174 H* Potassium 7.2 H* D Chloride 138.2 H Carbon Dioxide 21 L BUN 99 H Creatinine 4.0 H Glucose 157 H POC Glucose 126 H 190 H Hemoglobin A1c Lactic Acid Calcium Phosphorus Magnesium Transferrin AST 134 H ALT 71 H Alkaline Phosphatase 135 H Total Creatine Kinase 3504 H CK-MB (CK-2) Serum Total Protein Total Protein Albumin 2.2 L Tauww-2-Qninciwhi Psuej-6-Lblfvgxpb Gamma Globulins PEP Interpretation HDL Cholesterol TSH Arterial Blood Glucose Arterial Blood Ionized Calcium Urine WBC (Auto) Urine Creatinine Urine Total Protein Crossmatch 04/21/21 04/21/21 04/21/21 20:53 21:52 22:55 WBC RBC Hgb Hct MCH RDW Plt Count Seg Neuts % (Manual) Lymphocytes % (Manual) Nucleated RBC % Seg Neutrophils # Man Lymphocytes # (Manual) PT ABG pH POC ABG pCO2 POC ABG pO2 ABG pO2 ABG O2 Saturation ABG Base Excess ABG Hemoglobin ABG Oxyhemoglobin ABG Potassium ABG Chloride ABG Glucose Oxyhemoglobin Carboxyhemoglobin Sodium Potassium Chloride Carbon Dioxide BUN Creatinine Glucose POC Glucose 116 H 135 H 158 H Hemoglobin A1c Lactic Acid Calcium Phosphorus Magnesium Transferrin AST ALT Alkaline Phosphatase Total Creatine Kinase CK-MB (CK-2) Serum Total Protein Total Protein Albumin Mhvws-4-Lubtkioth Vjrxi-4-Smkldtxmv Gamma Globulins PEP Interpretation HDL Cholesterol TSH Arterial Blood Glucose Arterial Blood Ionized Calcium Urine WBC (Auto) Urine Creatinine Urine Total Protein Crossmatch 04/21/21 04/22/21 04/22/21 23:00 00:01 00:39 WBC RBC Hgb Hct MCH RDW Plt Count Seg Neuts % (Manual) Lymphocytes % (Manual) Nucleated RBC % Seg Neutrophils # Man Lymphocytes # (Manual) PT ABG pH POC ABG pCO2 POC ABG pO2 ABG pO2 ABG O2 Saturation ABG Base Excess ABG Hemoglobin ABG Oxyhemoglobin ABG Potassium ABG Chloride ABG Glucose Oxyhemoglobin Carboxyhemoglobin Sodium 176 H* 171 H* Potassium Chloride 140.0 H Carbon Dioxide 20 L BUN 98 H Creatinine 3.9 H Glucose 206 H POC Glucose 182 H Hemoglobin A1c Lactic Acid Calcium Phosphorus Magnesium Transferrin AST ALT Alkaline Phosphatase Total Creatine Kinase 3240 H CK-MB (CK-2) Serum Total Protein Total Protein Albumin Safnm-8-Qsjlqnjtb Varcn-6-Jxwczyvge Gamma Globulins PEP Interpretation HDL Cholesterol TSH Arterial Blood Glucose Arterial Blood Ionized Calcium Urine WBC (Auto) Urine Creatinine Urine Total Protein Crossmatch 04/22/21 04/22/21 04/22/21 00:58 01:04 04:52 WBC 11.2 H RBC Hgb Hct 44.3 H MCH 27 L RDW 17.1 H Plt Count 86 L Seg Neuts % (Manual) 86.0 H Lymphocytes % (Manual) 13.0 L Nucleated RBC % Seg Neutrophils # Man 9.6 H Lymphocytes # (Manual) PT ABG pH POC ABG pCO2 POC ABG pO2 ABG pO2 ABG O2 Saturation ABG Base Excess ABG Hemoglobin ABG Oxyhemoglobin ABG Potassium ABG Chloride ABG Glucose Oxyhemoglobin Carboxyhemoglobin Sodium Potassium Chloride Carbon Dioxide BUN Creatinine Glucose POC Glucose 176 H 143 H Hemoglobin A1c Lactic Acid Calcium Phosphorus Magnesium Transferrin AST ALT Alkaline Phosphatase Total Creatine Kinase CK-MB (CK-2) Serum Total Protein Total Protein Albumin Wcbkm-1-Uxxfvhcel Fahdu-8-Btxarsptc Gamma Globulins PEP Interpretation HDL Cholesterol TSH Arterial Blood Glucose Arterial Blood Ionized Calcium Urine WBC (Auto) Urine Creatinine Urine Total Protein Crossmatch 04/22/21 04/22/21 04/22/21 06:07 06:09 07:18 WBC RBC Hgb Hct MCH RDW Plt Count Seg Neuts % (Manual) Lymphocytes % (Manual) Nucleated RBC % Seg Neutrophils # Man Lymphocytes # (Manual) PT ABG pH POC ABG pCO2 POC ABG pO2 ABG pO2 ABG O2 Saturation ABG Base Excess ABG Hemoglobin ABG Oxyhemoglobin ABG Potassium ABG Chloride ABG Glucose Oxyhemoglobin Carboxyhemoglobin Sodium Potassium Chloride Carbon Dioxide BUN Creatinine Glucose POC Glucose 206 H 163 H 158 H Hemoglobin A1c Lactic Acid Calcium Phosphorus Magnesium Transferrin AST ALT Alkaline Phosphatase Total Creatine Kinase CK-MB (CK-2) Serum Total Protein Total Protein Albumin Ejrko-4-Feszxftqt Erain-6-Ohgjligdq Gamma Globulins PEP Interpretation HDL Cholesterol TSH Arterial Blood Glucose Arterial Blood Ionized Calcium Urine WBC (Auto) Urine Creatinine Urine Total Protein Crossmatch 04/22/21 04/22/21 04/22/21 08:59 08:59 08:59 WBC RBC Hgb Hct MCH RDW Plt Count Seg Neuts % (Manual) Lymphocytes % (Manual) Nucleated RBC % Seg Neutrophils # Man Lymphocytes # (Manual) PT ABG pH POC ABG pCO2 POC ABG pO2 ABG pO2 ABG O2 Saturation ABG Base Excess ABG Hemoglobin ABG Oxyhemoglobin ABG Potassium ABG Chloride ABG Glucose Oxyhemoglobin Carboxyhemoglobin Sodium 169 H* Potassium 3.5 L Chloride 134.5 H Carbon Dioxide 20 L BUN 95 H Creatinine 3.6 H Glucose 151 H POC Glucose Hemoglobin A1c Lactic Acid Calcium Phosphorus Magnesium Transferrin AST 121 H ALT 75 H Alkaline Phosphatase 137 H Total Creatine Kinase 3105 H CK-MB (CK-2) Serum Total Protein 5.5 L Total Protein 6.0 L Albumin 2.8 L 2.1 L Drirt-6-Ekfckkvcy 0.6 H Lemgk-0-Owxxgxrxc 1.0 H Gamma Globulins 0.6 L PEP Interpretation see below H HDL Cholesterol TSH Arterial Blood Glucose Arterial Blood Ionized Calcium Urine WBC (Auto) Urine Creatinine Urine Total Protein Crossmatch 04/22/21 04/22/21 04/22/21 09:44 10:24 12:20 WBC RBC Hgb Hct MCH RDW Plt Count Seg Neuts % (Manual) Lymphocytes % (Manual) Nucleated RBC % Seg Neutrophils # Man Lymphocytes # (Manual) PT ABG pH POC ABG pCO2 POC ABG pO2 ABG pO2 ABG O2 Saturation ABG Base Excess ABG Hemoglobin ABG Oxyhemoglobin ABG Potassium ABG Chloride ABG Glucose Oxyhemoglobin Carboxyhemoglobin Sodium Potassium Chloride Carbon Dioxide BUN Creatinine Glucose POC Glucose 107 H 131 H Hemoglobin A1c Lactic Acid Calcium Phosphorus Magnesium 2.80 H Transferrin AST ALT Alkaline Phosphatase Total Creatine Kinase CK-MB (CK-2) Serum Total Protein Total Protein Albumin Owpze-5-Mykdplzsj Axvfi-7-Pkhcoqsin Gamma Globulins PEP Interpretation HDL Cholesterol TSH Arterial Blood Glucose Arterial Blood Ionized Calcium Urine WBC (Auto) Urine Creatinine Urine Total Protein Crossmatch 04/22/21 04/22/21 04/22/21 13:19 14:16 15:22 WBC RBC Hgb Hct MCH RDW Plt Count Seg Neuts % (Manual) Lymphocytes % (Manual) Nucleated RBC % Seg Neutrophils # Man Lymphocytes # (Manual) PT ABG pH POC ABG pCO2 POC ABG pO2 ABG pO2 ABG O2 Saturation ABG Base Excess ABG Hemoglobin ABG Oxyhemoglobin ABG Potassium ABG Chloride ABG Glucose Oxyhemoglobin Carboxyhemoglobin Sodium Potassium Chloride Carbon Dioxide BUN Creatinine Glucose POC Glucose 147 H 154 H 136 H Hemoglobin A1c Lactic Acid Calcium Phosphorus Magnesium Transferrin AST ALT Alkaline Phosphatase Total Creatine Kinase CK-MB (CK-2) Serum Total Protein Total Protein Albumin Rdilh-3-Zujbnltqo Vcaqj-7-Blewudmjk Gamma Globulins PEP Interpretation HDL Cholesterol TSH Arterial Blood Glucose Arterial Blood Ionized Calcium Urine WBC (Auto) Urine Creatinine Urine Total Protein Crossmatch 04/22/21 04/22/21 04/22/21 15:55 15:55 16:22 WBC RBC Hgb Hct MCH RDW Plt Count Seg Neuts % (Manual) Lymphocytes % (Manual) Nucleated RBC % Seg Neutrophils # Man Lymphocytes # (Manual) PT ABG pH POC ABG pCO2 POC ABG pO2 ABG pO2 ABG O2 Saturation ABG Base Excess ABG Hemoglobin ABG Oxyhemoglobin ABG Potassium ABG Chloride ABG Glucose Oxyhemoglobin Carboxyhemoglobin Sodium 169 H* Potassium Chloride 133.5 H Carbon Dioxide 19 L BUN 94 H Creatinine 3.8 H Glucose 150 H POC Glucose 140 H Hemoglobin A1c 17.1 H Lactic Acid Calcium Phosphorus Magnesium Transferrin AST ALT Alkaline Phosphatase Total Creatine Kinase CK-MB (CK-2) Serum Total Protein Total Protein Albumin [place]-3-Wlrjcodfp Ehoqt-8-Hwpcsqapf Gamma Globulins PEP Interpretation HDL Cholesterol TSH Arterial Blood Glucose Arterial Blood Ionized Calcium Urine WBC (Auto) Urine Creatinine Urine Total Protein Crossmatch 04/22/21 04/22/21 04/22/21 18:11 18:26 23:19 WBC RBC Hgb Hct MCH RDW Plt Count Seg Neuts % (Manual) Lymphocytes % (Manual) Nucleated RBC % Seg Neutrophils # Man Lymphocytes # (Manual) PT ABG pH POC ABG pCO2 POC ABG pO2 ABG pO2 ABG O2 Saturation ABG Base Excess ABG Hemoglobin ABG Oxyhemoglobin ABG Potassium ABG Chloride ABG Glucose Oxyhemoglobin Carboxyhemoglobin Sodium Potassium Chloride Carbon Dioxide BUN Creatinine Glucose POC Glucose 146 H 188 H Hemoglobin A1c Lactic Acid Calcium Phosphorus Magnesium Transferrin AST ALT Alkaline Phosphatase Total Creatine Kinase 2497 H CK-MB (CK-2) Serum Total Protein Total Protein Albumin Xoqci-7-Drwskteln Oyqpt-4-Rqahnbmld Gamma Globulins PEP Interpretation HDL Cholesterol TSH Arterial Blood Glucose Arterial Blood Ionized Calcium Urine WBC (Auto) Urine Creatinine Urine Total Protein Crossmatch 04/23/21 04/23/21 04/23/21 00:27 05:23 07:50 WBC RBC Hgb Hct MCH RDW Plt Count Seg Neuts % (Manual) Lymphocytes % (Manual) Nucleated RBC % Seg Neutrophils # Man Lymphocytes # (Manual) PT ABG pH POC ABG pCO2 POC ABG pO2 ABG pO2 ABG O2 Saturation ABG Base Excess ABG Hemoglobin ABG Oxyhemoglobin ABG Potassium ABG Chloride ABG Glucose Oxyhemoglobin Carboxyhemoglobin Sodium 162 H* Potassium Chloride Carbon Dioxide BUN Creatinine Glucose POC Glucose 212 H 239 H Hemoglobin A1c Lactic Acid Calcium Phosphorus Magnesium Transferrin AST ALT Alkaline Phosphatase Total Creatine Kinase CK-MB (CK-2) Serum Total Protein Total Protein Albumin Bkdqa-9-Xpxqxcuyb Yflqm-2-Kfmwgnbca Gamma Globulins PEP Interpretation HDL Cholesterol TSH Arterial Blood Glucose Arterial Blood Ionized Calcium Urine WBC (Auto) Urine Creatinine Urine Total Protein Crossmatch 04/23/21 04/23/21 04/23/21 08:13 08:13 08:13 WBC 11.9 H RBC Hgb Hct MCH 26 L RDW 16.5 H Plt Count 72 L Seg Neuts % (Manual) 80.0 H Lymphocytes % (Manual) 5.0 L Nucleated RBC % Seg Neutrophils # Man 9.5 H Lymphocytes # (Manual) 0.6 L PT ABG pH POC ABG pCO2 POC ABG pO2 ABG pO2 ABG O2 Saturation ABG Base Excess ABG Hemoglobin ABG Oxyhemoglobin ABG Potassium ABG Chloride ABG Glucose Oxyhemoglobin Carboxyhemoglobin Sodium 164 H* Potassium Chloride 128.0 H Carbon Dioxide 21 L BUN 93 H Creatinine 3.8 H Glucose 293 H POC Glucose Hemoglobin A1c Lactic Acid Calcium Phosphorus Magnesium Transferrin AST 99 H ALT 70 H Alkaline Phosphatase 147 H Total Creatine Kinase 1803 H CK-MB (CK-2) Serum Total Protein Total Protein 6.1 L Albumin 2.0 L Wprfo-5-Flyfuxcsn Eoxey-3-Kunseluvn Gamma Globulins PEP Interpretation HDL Cholesterol TSH Arterial Blood Glucose Arterial Blood Ionized Calcium Urine WBC (Auto) Urine Creatinine Urine Total Protein Crossmatch 04/23/21 04/23/21 04/23/21 12:06 17:35 18:17 WBC RBC Hgb Hct MCH RDW Plt Count Seg Neuts % (Manual) Lymphocytes % (Manual) Nucleated RBC % Seg Neutrophils # Man Lymphocytes # (Manual) PT ABG pH POC ABG pCO2 POC ABG pO2 ABG pO2 ABG O2 Saturation ABG Base Excess ABG Hemoglobin ABG Oxyhemoglobin ABG Potassium ABG Chloride ABG Glucose Oxyhemoglobin Carboxyhemoglobin Sodium 160 H Potassium Chloride Carbon Dioxide BUN Creatinine Glucose POC Glucose 311 H 370 H Hemoglobin A1c Lactic Acid Calcium Phosphorus Magnesium Transferrin AST ALT Alkaline Phosphatase Total Creatine Kinase CK-MB (CK-2) Serum Total Protein Total Protein Albumin Brjbo-6-Qiqffivch Mbkhj-8-Sjcthzxzn Gamma Globulins PEP Interpretation HDL Cholesterol TSH Arterial Blood Glucose Arterial Blood Ionized Calcium Urine WBC (Auto) Urine Creatinine Urine Total Protein Crossmatch 04/24/21 04/24/21 04/24/21 02:13 06:00 06:00 WBC RBC Hgb Hct MCH 27 L RDW 17.0 H Plt Count 58 L Seg Neuts % (Manual) Lymphocytes % (Manual) 2.0 L Nucleated RBC % Seg Neutrophils # Man 8.9 H Lymphocytes # (Manual) 0.2 L PT ABG pH POC ABG pCO2 POC ABG pO2 ABG pO2 ABG O2 Saturation ABG Base Excess ABG Hemoglobin ABG Oxyhemoglobin ABG Potassium ABG Chloride ABG Glucose Oxyhemoglobin Carboxyhemoglobin Sodium 160 H Potassium Chloride Carbon Dioxide BUN Creatinine Glucose POC Glucose Hemoglobin A1c Lactic Acid Calcium Phosphorus Magnesium 2.90 H Transferrin AST ALT Alkaline Phosphatase Total Creatine Kinase CK-MB (CK-2) Serum Total Protein Total Protein Albumin Wkvmz-0-Lxkewkvhu Ojahc-4-Xdcryuaxs Gamma Globulins PEP Interpretation HDL Cholesterol TSH Arterial Blood Glucose Arterial Blood Ionized Calcium Urine WBC (Auto) Urine Creatinine Urine Total Protein Crossmatch 04/24/21 04/24/21 04/24/21 07:46 08:15 11:34 WBC RBC Hgb Hct MCH RDW Plt Count Seg Neuts % (Manual) Lymphocytes % (Manual) Nucleated RBC % Seg Neutrophils # Man Lymphocytes # (Manual) PT ABG pH POC ABG pCO2 POC ABG pO2 ABG pO2 ABG O2 Saturation ABG Base Excess ABG Hemoglobin ABG Oxyhemoglobin ABG Potassium ABG Chloride ABG Glucose Oxyhemoglobin Carboxyhemoglobin Sodium 159 H Potassium Chloride 125.6 H Carbon Dioxide 19 L BUN 94 H Creatinine 3.7 H Glucose 514 H* POC Glucose 395 H 422 H Hemoglobin A1c Lactic Acid Calcium Phosphorus Magnesium Transferrin AST ALT 61 H Alkaline Phosphatase 155 H Total Creatine Kinase CK-MB (CK-2) Serum Total Protein Total Protein 6.1 L Albumin 1.5 L Csyrj-8-Tzpgbeoeq Wcfrd-6-Juftfaqyr Gamma Globulins PEP Interpretation HDL Cholesterol TSH Arterial Blood Glucose Arterial Blood Ionized Calcium Urine WBC (Auto) Urine Creatinine Urine Total Protein Crossmatch 04/24/21 04/24/21 04/24/21 13:11 14:01 15:03 WBC RBC Hgb Hct MCH RDW Plt Count Seg Neuts % (Manual) Lymphocytes % (Manual) Nucleated RBC % Seg Neutrophils # Man Lymphocytes # (Manual) PT ABG pH POC ABG pCO2 POC ABG pO2 ABG pO2 ABG O2 Saturation ABG Base Excess ABG Hemoglobin ABG Oxyhemoglobin ABG Potassium ABG Chloride ABG Glucose Oxyhemoglobin Carboxyhemoglobin Sodium Potassium Chloride Carbon Dioxide BUN Creatinine Glucose POC Glucose 384 H 423 H 418 H Hemoglobin A1c Lactic Acid Calcium Phosphorus Magnesium Transferrin AST ALT Alkaline Phosphatase Total Creatine Kinase CK-MB (CK-2) Serum Total Protein Total Protein Albumin Dgnep-4-Zqgnpfktd Jrsav-7-Iiqgduyhn Gamma Globulins PEP Interpretation HDL Cholesterol TSH Arterial Blood Glucose Arterial Blood Ionized Calcium Urine WBC (Auto) Urine Creatinine Urine Total Protein Crossmatch 04/24/21 04/24/21 04/24/21 17:29 18:28 19:41 WBC RBC Hgb Hct MCH RDW Plt Count Seg Neuts % (Manual) Lymphocytes % (Manual) Nucleated RBC % Seg Neutrophils # Man Lymphocytes # (Manual) PT ABG pH POC ABG pCO2 POC ABG pO2 ABG pO2 ABG O2 Saturation ABG Base Excess ABG Hemoglobin ABG Oxyhemoglobin ABG Potassium ABG Chloride ABG Glucose Oxyhemoglobin Carboxyhemoglobin Sodium Potassium Chloride Carbon Dioxide BUN Creatinine Glucose POC Glucose 335 H 321 H Hemoglobin A1c Lactic Acid Calcium Phosphorus Magnesium Transferrin 112 L AST ALT Alkaline Phosphatase Total Creatine Kinase CK-MB (CK-2) Serum Total Protein Total Protein Albumin Cnlqn-5-Uknrepuqy Oxkfb-6-Eirmizdcf Gamma Globulins PEP Interpretation HDL Cholesterol TSH Arterial Blood Glucose Arterial Blood Ionized Calcium Urine WBC (Auto) Urine Creatinine Urine Total Protein Crossmatch 04/24/21 04/25/21 04/25/21 22:33 01:28 02:28 WBC RBC Hgb Hct MCH RDW Plt Count Seg Neuts % (Manual) Lymphocytes % (Manual) Nucleated RBC % Seg Neutrophils # Man Lymphocytes # (Manual) PT ABG pH POC ABG pCO2 POC ABG pO2 ABG pO2 ABG O2 Saturation ABG Base Excess ABG Hemoglobin ABG Oxyhemoglobin ABG Potassium ABG Chloride ABG Glucose Oxyhemoglobin Carboxyhemoglobin Sodium Potassium Chloride Carbon Dioxide BUN Creatinine Glucose POC Glucose 349 H 283 H 247 H Hemoglobin A1c Lactic Acid Calcium Phosphorus Magnesium Transferrin AST ALT Alkaline Phosphatase Total Creatine Kinase CK-MB (CK-2) Serum Total Protein Total Protein Albumin Cxjry-6-Lxoeedslx Hkbcr-7-Xgladvljx Gamma Globulins PEP Interpretation HDL Cholesterol TSH Arterial Blood Glucose Arterial Blood Ionized Calcium Urine WBC (Auto) Urine Creatinine Urine Total Protein Crossmatch 04/25/21 04/25/21 04/25/21 03:25 04:22 05:40 WBC RBC Hgb Hct MCH RDW Plt Count Seg Neuts % (Manual) Lymphocytes % (Manual) Nucleated RBC % Seg Neutrophils # Man Lymphocytes # (Manual) PT ABG pH POC ABG pCO2 POC ABG pO2 ABG pO2 ABG O2 Saturation ABG Base Excess ABG Hemoglobin ABG Oxyhemoglobin ABG Potassium ABG Chloride ABG Glucose Oxyhemoglobin Carboxyhemoglobin Sodium Potassium Chloride Carbon Dioxide BUN Creatinine Glucose POC Glucose 196 H 207 H 204 H Hemoglobin A1c Lactic Acid Calcium Phosphorus Magnesium Transferrin AST ALT Alkaline Phosphatase Total Creatine Kinase CK-MB (CK-2) Serum Total Protein Total Protein Albumin Tkunu-2-Aplowhsse Witfr-7-Bbnprvonn Gamma Globulins PEP Interpretation HDL Cholesterol TSH Arterial Blood Glucose Arterial Blood Ionized Calcium Urine WBC (Auto) Urine Creatinine Urine Total Protein Crossmatch 04/25/21 04/25/21 04/25/21 05:45 06:43 07:37 WBC RBC Hgb Hct MCH 27 L RDW 17.0 H Plt Count 64 L Seg Neuts % (Manual) 84.0 H Lymphocytes % (Manual) 6.0 L Nucleated RBC % 1.0 H Seg Neutrophils # Man Lymphocytes # (Manual) 0.4 L PT ABG pH POC ABG pCO2 POC ABG pO2 ABG pO2 ABG O2 Saturation ABG Base Excess ABG Hemoglobin ABG Oxyhemoglobin ABG Potassium ABG Chloride ABG Glucose Oxyhemoglobin Carboxyhemoglobin Sodium Potassium Chloride Carbon Dioxide BUN Creatinine Glucose POC Glucose 238 H 201 H Hemoglobin A1c Lactic Acid Calcium Phosphorus Magnesium Transferrin AST ALT Alkaline Phosphatase Total Creatine Kinase CK-MB (CK-2) Serum Total Protein Total Protein Albumin Xikmn-4-Totgayxra Nigzq-1-Yzfheuura Gamma Globulins PEP Interpretation HDL Cholesterol TSH Arterial Blood Glucose Arterial Blood Ionized Calcium Urine WBC (Auto) Urine Creatinine Urine Total Protein Crossmatch 04/25/21 04/25/21 04/25/21 08:11 08:11 08:41 WBC RBC Hgb Hct MCH RDW Plt Count Seg Neuts % (Manual) Lymphocytes % (Manual) Nucleated RBC % Seg Neutrophils # Man Lymphocytes # (Manual) PT ABG pH POC ABG pCO2 POC ABG pO2 ABG pO2 ABG O2 Saturation ABG Base Excess ABG Hemoglobin ABG Oxyhemoglobin ABG Potassium ABG Chloride ABG Glucose Oxyhemoglobin Carboxyhemoglobin Sodium 148 H D Potassium Chloride 115.7 H Carbon Dioxide 21 L BUN 83 H Creatinine 3.6 H Glucose 247 H POC Glucose 220 H Hemoglobin A1c Lactic Acid Calcium Phosphorus Magnesium 2.50 H Transferrin AST 63 H ALT 62 H Alkaline Phosphatase 143 H Total Creatine Kinase CK-MB (CK-2) Serum Total Protein Total Protein 5.4 L Albumin 1.4 L Crtiv-5-Qfmszdcyq Mzlaz-8-Gkbctvtqq Gamma Globulins PEP Interpretation HDL Cholesterol TSH Arterial Blood Glucose Arterial Blood Ionized Calcium Urine WBC (Auto) Urine Creatinine Urine Total Protein Crossmatch 04/25/21 04/25/21 04/25/21 09:22 10:31 11:44 WBC RBC Hgb Hct MCH RDW Plt Count Seg Neuts % (Manual) Lymphocytes % (Manual) Nucleated RBC % Seg Neutrophils # Man Lymphocytes # (Manual) PT ABG pH POC ABG pCO2 POC ABG pO2 ABG pO2 ABG O2 Saturation ABG Base Excess ABG Hemoglobin ABG Oxyhemoglobin ABG Potassium ABG Chloride ABG Glucose Oxyhemoglobin Carboxyhemoglobin Sodium Potassium Chloride Carbon Dioxide BUN Creatinine Glucose POC Glucose 228 H 215 H 191 H Hemoglobin A1c Lactic Acid Calcium Phosphorus Magnesium Transferrin AST ALT Alkaline Phosphatase Total Creatine Kinase CK-MB (CK-2) Serum Total Protein Total Protein Albumin Litvq-0-Oevpxabls Onlvi-7-Xpnrwcgmk Gamma Globulins PEP Interpretation HDL Cholesterol TSH Arterial Blood Glucose Arterial Blood Ionized Calcium Urine WBC (Auto) Urine Creatinine Urine Total Protein Crossmatch 04/25/21 04/25/21 04/25/21 12:23 13:48 14:11 WBC RBC Hgb Hct MCH RDW Plt Count Seg Neuts % (Manual) Lymphocytes % (Manual) Nucleated RBC % Seg Neutrophils # Man Lymphocytes # (Manual) PT ABG pH POC ABG pCO2 POC ABG pO2 ABG pO2 ABG O2 Saturation ABG Base Excess ABG Hemoglobin ABG Oxyhemoglobin ABG Potassium ABG Chloride ABG Glucose Oxyhemoglobin Carboxyhemoglobin Sodium Potassium Chloride Carbon Dioxide BUN Creatinine Glucose POC Glucose 229 H 177 H 161 H Hemoglobin A1c Lactic Acid Calcium Phosphorus Magnesium Transferrin AST ALT Alkaline Phosphatase Total Creatine Kinase CK-MB (CK-2) Serum Total Protein Total Protein Albumin Fccxl-2-Uxjysirbz Vyasn-5-Eibkuaekj Gamma Globulins PEP Interpretation HDL Cholesterol TSH Arterial Blood Glucose Arterial Blood Ionized Calcium Urine WBC (Auto) Urine Creatinine Urine Total Protein Crossmatch 04/25/21 04/25/21 04/26/21 18:01 21:31 01:19 WBC RBC Hgb Hct MCH RDW Plt Count Seg Neuts % (Manual) Lymphocytes % (Manual) Nucleated RBC % Seg Neutrophils # Man Lymphocytes # (Manual) PT ABG pH POC ABG pCO2 POC ABG pO2 ABG pO2 ABG O2 Saturation ABG Base Excess ABG Hemoglobin ABG Oxyhemoglobin ABG Potassium ABG Chloride ABG Glucose Oxyhemoglobin Carboxyhemoglobin Sodium Potassium Chloride Carbon Dioxide BUN Creatinine Glucose POC Glucose 264 H 371 H 356 H Hemoglobin A1c Lactic Acid Calcium Phosphorus Magnesium Transferrin AST ALT Alkaline Phosphatase Total Creatine Kinase CK-MB (CK-2) Serum Total Protein Total Protein Albumin Wiban-6-Nsqgtcymr Kxode-5-Szlsntuxz Gamma Globulins PEP Interpretation HDL Cholesterol TSH Arterial Blood Glucose Arterial Blood Ionized Calcium Urine WBC (Auto) Urine Creatinine Urine Total Protein Crossmatch 04/26/21 04/26/21 04/26/21 06:31 09:13 09:33 WBC RBC Hgb Hct MCH 27 L RDW 16.9 H Plt Count 58 L Seg Neuts % (Manual) 77.0 H Lymphocytes % (Manual) 4.0 L Nucleated RBC % 2.0 H Seg Neutrophils # Man Lymphocytes # (Manual) 0.3 L PT ABG pH POC ABG pCO2 POC ABG pO2 ABG pO2 ABG O2 Saturation ABG Base Excess ABG Hemoglobin ABG Oxyhemoglobin ABG Potassium ABG Chloride ABG Glucose Oxyhemoglobin Carboxyhemoglobin Sodium Potassium Chloride Carbon Dioxide BUN Creatinine Glucose POC Glucose 428 H 454 H Hemoglobin A1c Lactic Acid Calcium Phosphorus Magnesium Transferrin AST ALT Alkaline Phosphatase Total Creatine Kinase CK-MB (CK-2) Serum Total Protein Total Protein Albumin Fbpoa-8-Ysrtvnmky Hilzo-3-Bfuwhqomv Gamma Globulins PEP Interpretation HDL Cholesterol TSH Arterial Blood Glucose Arterial Blood Ionized Calcium Urine WBC (Auto) Urine Creatinine Urine Total Protein Crossmatch 04/26/21 04/26/21 04/26/21 09:33 09:33 11:00 WBC RBC Hgb Hct MCH RDW Plt Count Seg Neuts % (Manual) Lymphocytes % (Manual) Nucleated RBC % Seg Neutrophils # Man Lymphocytes # (Manual) PT ABG pH 7.281 L POC ABG pCO2 POC ABG pO2 66.4 L ABG pO2 ABG O2 Saturation ABG Base Excess ABG Hemoglobin 10.9 L ABG Oxyhemoglobin 91 L ABG Potassium ABG Chloride ABG Glucose 521 H Oxyhemoglobin Carboxyhemoglobin Sodium Potassium Chloride Carbon Dioxide 19 L BUN 98 H Creatinine 3.8 H Glucose 530 H* POC Glucose Hemoglobin A1c Lactic Acid Calcium 8.1 L Phosphorus 5.60 H D Magnesium Transferrin AST 60 H ALT 72 H Alkaline Phosphatase 168 H Total Creatine Kinase CK-MB (CK-2) Serum Total Protein Total Protein 4.6 L Albumin 1.7 L Noiqe-7-Tfzchuhmk Oyqzm-2-Ywbuetslr Gamma Globulins PEP Interpretation HDL Cholesterol TSH Arterial Blood Glucose 521 H Arterial Blood Ionized Calcium Urine WBC (Auto) Urine Creatinine Urine Total Protein Crossmatch 04/26/21 04/26/21 04/26/21 12:36 15:39 16:18 WBC RBC Hgb Hct MCH RDW Plt Count Seg Neuts % (Manual) Lymphocytes % (Manual) Nucleated RBC % Seg Neutrophils # Man Lymphocytes # (Manual) PT ABG pH 7.275 L POC ABG pCO2 POC ABG pO2 63.4 L ABG pO2 ABG O2 Saturation ABG Base Excess ABG Hemoglobin 8.4 L ABG Oxyhemoglobin 89.5 L ABG Potassium ABG Chloride 108.0 H ABG Glucose 404 H Oxyhemoglobin Carboxyhemoglobin Sodium Potassium Chloride Carbon Dioxide BUN Creatinine Glucose POC Glucose 414 H 324 H Hemoglobin A1c Lactic Acid Calcium Phosphorus Magnesium Transferrin AST ALT Alkaline Phosphatase Total Creatine Kinase CK-MB (CK-2) Serum Total Protein Total Protein Albumin Fkglf-6-Shcbpyint Sbegh-6-Vawyccgef Gamma Globulins PEP Interpretation HDL Cholesterol TSH Arterial Blood Glucose 404 H Arterial Blood Ionized Calcium Urine WBC (Auto) Urine Creatinine Urine Total Protein Crossmatch 04/26/21 04/27/21 04/27/21 21:14 00:07 05:47 WBC RBC Hgb Hct MCH RDW Plt Count Seg Neuts % (Manual) Lymphocytes % (Manual) Nucleated RBC % Seg Neutrophils # Man Lymphocytes # (Manual) PT ABG pH POC ABG pCO2 POC ABG pO2 ABG pO2 ABG O2 Saturation ABG Base Excess ABG Hemoglobin ABG Oxyhemoglobin ABG Potassium ABG Chloride ABG Glucose Oxyhemoglobin Carboxyhemoglobin Sodium Potassium Chloride Carbon Dioxide BUN Creatinine Glucose POC Glucose 242 H 282 H 214 H Hemoglobin A1c Lactic Acid Calcium Phosphorus Magnesium Transferrin AST ALT Alkaline Phosphatase Total Creatine Kinase CK-MB (CK-2) Serum Total Protein Total Protein Albumin Dipkq-3-Iapyqvyxc Oetit-0-Bngpwuwvu Gamma Globulins PEP Interpretation HDL Cholesterol TSH Arterial Blood Glucose Arterial Blood Ionized Calcium Urine WBC (Auto) Urine Creatinine Urine Total Protein Crossmatch 04/27/21 04/27/21 04/27/21 06:23 07:43 08:30 WBC RBC Hgb Hct MCH RDW Plt Count Seg Neuts % (Manual) Lymphocytes % (Manual) Nucleated RBC % Seg Neutrophils # Man Lymphocytes # (Manual) PT ABG pH 7.309 L POC ABG pCO2 POC ABG pO2 70.6 L ABG pO2 ABG O2 Saturation ABG Base Excess ABG Hemoglobin 9.16 L ABG Oxyhemoglobin 92.4 L ABG Potassium ABG Chloride ABG Glucose Oxyhemoglobin Carboxyhemoglobin Sodium Potassium Chloride 110.1 H Carbon Dioxide 15 L BUN 109 H Creatinine 4.3 H Glucose 218 H POC Glucose 187 H Hemoglobin A1c Lactic Acid Calcium Phosphorus Magnesium Transferrin AST 53 H ALT Alkaline Phosphatase 148 H Total Creatine Kinase 1000 H CK-MB (CK-2) Serum Total Protein Total Protein 5.2 L Albumin 1.2 L Rpswg-3-Jxuqobklt Ggabv-1-Cccgovxgp Gamma Globulins PEP Interpretation HDL Cholesterol TSH Arterial Blood Glucose Arterial Blood Ionized Calcium Urine WBC (Auto) Urine Creatinine Urine Total Protein Crossmatch 04/27/21 04/27/21 04/27/21 11:54 21:08 23:28 WBC RBC Hgb Hct MCH RDW Plt Count Seg Neuts % (Manual) Lymphocytes % (Manual) Nucleated RBC % Seg Neutrophils # Man Lymphocytes # (Manual) PT ABG pH POC ABG pCO2 POC ABG pO2 ABG pO2 ABG O2 Saturation ABG Base Excess ABG Hemoglobin ABG Oxyhemoglobin ABG Potassium ABG Chloride ABG Glucose Oxyhemoglobin Carboxyhemoglobin Sodium Potassium Chloride Carbon Dioxide BUN Creatinine Glucose POC Glucose 147 H 136 H 201 H Hemoglobin A1c Lactic Acid Calcium Phosphorus Magnesium Transferrin AST ALT Alkaline Phosphatase Total Creatine Kinase CK-MB (CK-2) Serum Total Protein Total Protein Albumin Ywhlg-3-Rqwgstjvg Khmns-4-Ccnuqeutw Gamma Globulins PEP Interpretation HDL Cholesterol TSH Arterial Blood Glucose Arterial Blood Ionized Calcium Urine WBC (Auto) Urine Creatinine Urine Total Protein Crossmatch 04/28/21 04/28/21 04/28/21 04:00 04:00 05:00 WBC 12.6 H RBC 3.59 L Hgb 9.4 L Hct MCH 26 L RDW 16.6 H Plt Count 111 L Seg Neuts % (Manual) Lymphocytes % (Manual) 1.0 L Nucleated RBC % 4.0 H Seg Neutrophils # Man 11.6 H Lymphocytes # (Manual) 0.1 L PT 15.3 H ABG pH POC ABG pCO2 POC ABG pO2 ABG pO2 ABG O2 Saturation ABG Base Excess ABG Hemoglobin ABG Oxyhemoglobin ABG Potassium ABG Chloride ABG Glucose Oxyhemoglobin Carboxyhemoglobin Sodium 147 H Potassium 3.5 L D Chloride Carbon Dioxide BUN 79 H Creatinine 3.8 H Glucose 194 H POC Glucose Hemoglobin A1c Lactic Acid Calcium 8.1 L Phosphorus Magnesium Transferrin AST ALT Alkaline Phosphatase Total Creatine Kinase CK-MB (CK-2) Serum Total Protein Total Protein Albumin Wjhhi-9-Fiqsbvlyy Vjwnn-3-Yorowmylj Gamma Globulins PEP Interpretation HDL Cholesterol TSH Arterial Blood Glucose Arterial Blood Ionized Calcium Urine WBC (Auto) Urine Creatinine Urine Total Protein Crossmatch 04/28/21 04/28/21 04/28/21 05:08 05:18 11:04 WBC RBC Hgb Hct MCH RDW Plt Count Seg Neuts % (Manual) Lymphocytes % (Manual) Nucleated RBC % Seg Neutrophils # Delbert Lymphocytes # (Manual) PT ABG pH POC ABG pCO2 POC ABG pO2 66.5 L ABG pO2 ABG O2 Saturation ABG Base Excess ABG Hemoglobin 9.7 L ABG Oxyhemoglobin 92.5 L ABG Potassium 3.2 L ABG Chloride ABG Glucose 200 H Oxyhemoglobin Carboxyhemoglobin Sodium Potassium Chloride Carbon Dioxide BUN Creatinine Glucose POC Glucose 183 H 174 H Hemoglobin A1c Lactic Acid Calcium Phosphorus Magnesium Transferrin AST ALT Alkaline Phosphatase Total Creatine Kinase CK-MB (CK-2) Serum Total Protein Total Protein Albumin Xizqz-7-Bgukwxedk Pxqcm-2-Tqkylphhs Gamma Globulins PEP Interpretation HDL Cholesterol TSH Arterial Blood Glucose 200 H Arterial Blood Ionized Calcium 4.5 L Urine WBC (Auto) Urine Creatinine Urine Total Protein Crossmatch 04/28/21 04/28/21 04/28/21 17:16 21:14 23:41 WBC RBC Hgb Hct MCH RDW Plt Count Seg Neuts % (Manual) Lymphocytes % (Manual) Nucleated RBC % Seg Neutrophils # Man Lymphocytes # (Manual) PT ABG pH POC ABG pCO2 POC ABG pO2 ABG pO2 ABG O2 Saturation ABG Base Excess ABG Hemoglobin ABG Oxyhemoglobin ABG Potassium ABG Chloride ABG Glucose Oxyhemoglobin Carboxyhemoglobin Sodium Potassium Chloride Carbon Dioxide BUN Creatinine Glucose POC Glucose 135 H 134 H 171 H Hemoglobin A1c Lactic Acid Calcium Phosphorus Magnesium Transferrin AST ALT Alkaline Phosphatase Total Creatine Kinase CK-MB (CK-2) Serum Total Protein Total Protein Albumin Fcaxu-5-Xbsorqfyt Erxwt-0-Ficpsszbl Gamma Globulins PEP Interpretation HDL Cholesterol TSH Arterial Blood Glucose Arterial Blood Ionized Calcium Urine WBC (Auto) Urine Creatinine Urine Total Protein Crossmatch 04/29/21 04/29/21 04/29/21 01:16 04:00 04:00 WBC 13.3 H RBC 3.12 L Hgb 8.3 L Hct 26.2 L MCH 27 L RDW 16.3 H Plt Count 132 L Seg Neuts % (Manual) Lymphocytes % (Manual) Nucleated RBC % Seg Neutrophils # Man Lymphocytes # (Manual) PT ABG pH POC ABG pCO2 POC ABG pO2 ABG pO2 ABG O2 Saturation ABG Base Excess ABG Hemoglobin ABG Oxyhemoglobin ABG Potassium ABG Chloride ABG Glucose Oxyhemoglobin Carboxyhemoglobin Sodium Potassium Chloride Carbon Dioxide BUN 63 H Creatinine 3.4 H Glucose 249 H POC Glucose 236 H Hemoglobin A1c Lactic Acid Calcium 8.2 L Phosphorus Magnesium Transferrin AST 61 H ALT 71 H Alkaline Phosphatase 170 H Total Creatine Kinase CK-MB (CK-2) Serum Total Protein Total Protein 5.1 L Albumin 1.6 L Qfxna-9-Gqdgzgxca Alsmu-5-Iqjushsgc Gamma Globulins PEP Interpretation HDL Cholesterol TSH Arterial Blood Glucose Arterial Blood Ionized Calcium Urine WBC (Auto) Urine Creatinine Urine Total Protein Crossmatch 04/29/21 04/29/21 04/29/21 11:35 13:30 16:01 WBC RBC Hgb Hct MCH RDW Plt Count Seg Neuts % (Manual) Lymphocytes % (Manual) Nucleated RBC % Seg Neutrophils # Man Lymphocytes # (Manual) PT ABG pH POC ABG pCO2 POC ABG pO2 ABG pO2 ABG O2 Saturation ABG Base Excess ABG Hemoglobin ABG Oxyhemoglobin ABG Potassium ABG Chloride ABG Glucose Oxyhemoglobin Carboxyhemoglobin Sodium Potassium Chloride Carbon Dioxide BUN Creatinine Glucose POC Glucose 320 H 297 H Hemoglobin A1c Lactic Acid Calcium Phosphorus Magnesium Transferrin AST ALT Alkaline Phosphatase Total Creatine Kinase CK-MB (CK-2) Serum Total Protein Total Protein Albumin Ahnzd-8-Gahajmtch Gtwkb-4-Ihkowyqlj Gamma Globulins PEP Interpretation HDL Cholesterol TSH Arterial Blood Glucose Arterial Blood Ionized Calcium Urine WBC (Auto) > 182.0 H Urine Creatinine Urine Total Protein Crossmatch 04/29/21 04/29/21 04/30/21 21:58 23:35 04:00 WBC 11.4 H RBC 3.27 L Hgb 8.7 L Hct 27.5 L MCH 27 L RDW 16.6 H Plt Count Seg Neuts % (Manual) Lymphocytes % (Manual) Nucleated RBC % Seg Neutrophils # Man Lymphocytes # (Manual) PT ABG pH POC ABG pCO2 POC ABG pO2 ABG pO2 ABG O2 Saturation ABG Base Excess ABG Hemoglobin ABG Oxyhemoglobin ABG Potassium ABG Chloride ABG Glucose Oxyhemoglobin Carboxyhemoglobin Sodium Potassium Chloride Carbon Dioxide BUN Creatinine Glucose POC Glucose 260 H 254 H Hemoglobin A1c Lactic Acid Calcium Phosphorus Magnesium Transferrin AST ALT Alkaline Phosphatase Total Creatine Kinase CK-MB (CK-2) Serum Total Protein Total Protein Albumin Cnnnv-4-Egielzvbi Fjosf-2-Rkvtygdas Gamma Globulins PEP Interpretation HDL Cholesterol TSH Arterial Blood Glucose Arterial Blood Ionized Calcium Urine WBC (Auto) Urine Creatinine Urine Total Protein Crossmatch 04/30/21 04/30/21 04/30/21 04:00 05:17 05:31 WBC RBC Hgb Hct MCH RDW Plt Count Seg Neuts % (Manual) Lymphocytes % (Manual) Nucleated RBC % Seg Neutrophils # Man Lymphocytes # (Manual) PT ABG pH 7.452 H POC ABG pCO2 30.5 L POC ABG pO2 54.5 L ABG pO2 ABG O2 Saturation ABG Base Excess ABG Hemoglobin 10.1 L ABG Oxyhemoglobin 87.4 L ABG Potassium 2.9 L ABG Chloride ABG Glucose 305 H Oxyhemoglobin Carboxyhemoglobin Sodium Potassium 3.1 L Chloride Carbon Dioxide BUN 79 H Creatinine 3.9 H Glucose 275 H POC Glucose 267 H Hemoglobin A1c Lactic Acid Calcium Phosphorus 5.60 H D Magnesium Transferrin AST ALT Alkaline Phosphatase Total Creatine Kinase CK-MB (CK-2) Serum Total Protein Total Protein Albumin Hukel-7-Mgtbjbdbs Bhhhe-8-Degwfhfmv Gamma Globulins PEP Interpretation HDL Cholesterol TSH Arterial Blood Glucose 305 H Arterial Blood Ionized Calcium Urine WBC (Auto) Urine Creatinine Urine Total Protein Crossmatch 04/30/21 04/30/21 04/30/21 12:31 17:50 22:24 WBC RBC Hgb Hct MCH RDW Plt Count Seg Neuts % (Manual) Lymphocytes % (Manual) Nucleated RBC % Seg Neutrophils # Man Lymphocytes # (Manual) PT ABG pH POC ABG pCO2 POC ABG pO2 ABG pO2 ABG O2 Saturation ABG Base Excess ABG Hemoglobin ABG Oxyhemoglobin ABG Potassium ABG Chloride ABG Glucose Oxyhemoglobin Carboxyhemoglobin Sodium Potassium Chloride Carbon Dioxide BUN Creatinine Glucose POC Glucose 259 H 161 H 146 H Hemoglobin A1c Lactic Acid Calcium Phosphorus Magnesium Transferrin AST ALT Alkaline Phosphatase Total Creatine Kinase CK-MB (CK-2) Serum Total Protein Total Protein Albumin Pvxhy-8-Pqtdwybxa Rajvx-6-Maomwmlsf Gamma Globulins PEP Interpretation HDL Cholesterol TSH Arterial Blood Glucose Arterial Blood Ionized Calcium Urine WBC (Auto) Urine Creatinine Urine Total Protein Crossmatch 05/01/21 05/01/21 05/01/21 00:09 03:30 04:00 WBC 12.0 H RBC 3.08 L Hgb 8.1 L Hct 25.6 L MCH 26 L RDW 16.3 H Plt Count Seg Neuts % (Manual) Lymphocytes % (Manual) Nucleated RBC % Seg Neutrophils # Man Lymphocytes # (Manual) PT ABG pH 7.493 H POC ABG pCO2 POC ABG pO2 ABG pO2 ABG O2 Saturation ABG Base Excess ABG Hemoglobin 9.3 L ABG Oxyhemoglobin ABG Potassium ABG Chloride ABG Glucose 167 H Oxyhemoglobin Carboxyhemoglobin 0.4 L Sodium Potassium Chloride Carbon Dioxide BUN Creatinine Glucose POC Glucose 149 H Hemoglobin A1c Lactic Acid Calcium Phosphorus Magnesium Transferrin AST ALT Alkaline Phosphatase Total Creatine Kinase CK-MB (CK-2) Serum Total Protein Total Protein Albumin Slltm-6-Nvaswwhws Neqit-6-Yndxgsefd Gamma Globulins PEP Interpretation HDL Cholesterol TSH Arterial Blood Glucose 167 H Arterial Blood Ionized Calcium Urine WBC (Auto) Urine Creatinine Urine Total Protein Crossmatch 05/01/21 05/01/21 05/01/21 04:00 05:48 11:49 WBC RBC Hgb Hct MCH RDW Plt Count Seg Neuts % (Manual) Lymphocytes % (Manual) Nucleated RBC % Seg Neutrophils # Man Lymphocytes # (Manual) PT ABG pH POC ABG pCO2 POC ABG pO2 ABG pO2 ABG O2 Saturation ABG Base Excess ABG Hemoglobin ABG Oxyhemoglobin ABG Potassium ABG Chloride ABG Glucose Oxyhemoglobin Carboxyhemoglobin Sodium Potassium 3.5 L Chloride Carbon Dioxide BUN 62 H Creatinine 3.3 H Glucose 179 H POC Glucose 197 H 167 H Hemoglobin A1c Lactic Acid Calcium 8.3 L Phosphorus Magnesium Transferrin AST ALT Alkaline Phosphatase Total Creatine Kinase CK-MB (CK-2) Serum Total Protein Total Protein Albumin Kpmxv-9-Absaadhnz Uznll-6-Fxsjrqppe Gamma Globulins PEP Interpretation HDL Cholesterol TSH Arterial Blood Glucose Arterial Blood Ionized Calcium Urine WBC (Auto) Urine Creatinine Urine Total Protein Crossmatch 05/01/21 05/01/21 05/02/21 16:24 23:25 04:00 WBC 14.2 H RBC 2.61 L Hgb 6.9 L Hct 22.1 L MCH 27 L RDW 16.1 H Plt Count Seg Neuts % (Manual) Lymphocytes % (Manual) Nucleated RBC % Seg Neutrophils # Man Lymphocytes # (Manual) PT ABG pH POC ABG pCO2 POC ABG pO2 ABG pO2 ABG O2 Saturation ABG Base Excess ABG Hemoglobin ABG Oxyhemoglobin ABG Potassium ABG Chloride ABG Glucose Oxyhemoglobin Carboxyhemoglobin Sodium Potassium Chloride Carbon Dioxide BUN Creatinine Glucose POC Glucose 157 H 147 H Hemoglobin A1c Lactic Acid Calcium Phosphorus Magnesium Transferrin AST ALT Alkaline Phosphatase Total Creatine Kinase CK-MB (CK-2) Serum Total Protein Total Protein Albumin Ursfx-3-Ckrkghlus Yrrqy-2-Vsclzbtev Gamma Globulins PEP Interpretation HDL Cholesterol TSH Arterial Blood Glucose Arterial Blood Ionized Calcium Urine WBC (Auto) Urine Creatinine Urine Total Protein Crossmatch 05/02/21 05/02/21 05/02/21 04:00 04:34 05:23 WBC RBC Hgb Hct MCH RDW Plt Count Seg Neuts % (Manual) Lymphocytes % (Manual) Nucleated RBC % Seg Neutrophils # Man Lymphocytes # (Manual) PT ABG pH 7.487 H POC ABG pCO2 POC ABG pO2 78.6 L ABG pO2 ABG O2 Saturation ABG Base Excess ABG Hemoglobin 11.5 L ABG Oxyhemoglobin ABG Potassium ABG Chloride ABG Glucose 122 H Oxyhemoglobin Carboxyhemoglobin Sodium Potassium Chloride Carbon Dioxide BUN 49 H Creatinine 2.8 H Glucose 117 H POC Glucose 119 H Hemoglobin A1c Lactic Acid Calcium Phosphorus Magnesium Transferrin AST ALT Alkaline Phosphatase Total Creatine Kinase CK-MB (CK-2) Serum Total Protein Total Protein Albumin Tzkvf-8-Mkzeifrqg Jntfj-4-Pjfujnenx Gamma Globulins PEP Interpretation HDL Cholesterol TSH Arterial Blood Glucose 122 H Arterial Blood Ionized Calcium Urine WBC (Auto) Urine Creatinine Urine Total Protein Crossmatch 05/02/21 05/02/21 05/02/21 12:00 12:04 17:29 WBC RBC Hgb Hct MCH RDW Plt Count Seg Neuts % (Manual) Lymphocytes % (Manual) Nucleated RBC % Seg Neutrophils # Man Lymphocytes # (Manual) PT ABG pH POC ABG pCO2 POC ABG pO2 ABG pO2 ABG O2 Saturation ABG Base Excess ABG Hemoglobin ABG Oxyhemoglobin ABG Potassium ABG Chloride ABG Glucose Oxyhemoglobin Carboxyhemoglobin Sodium Potassium Chloride Carbon Dioxide BUN Creatinine Glucose POC Glucose 115 H 120 H Hemoglobin A1c Lactic Acid Calcium Phosphorus Magnesium Transferrin AST ALT Alkaline Phosphatase Total Creatine Kinase CK-MB (CK-2) Serum Total Protein Total Protein Albumin Kiejs-2-Vzsuwtvyi Rjdek-8-Zvxniaktg Gamma Globulins PEP Interpretation HDL Cholesterol TSH Arterial Blood Glucose Arterial Blood Ionized Calcium Urine WBC (Auto) Urine Creatinine Urine Total Protein Crossmatch See Detail 05/02/21 05/03/21 05/03/21 23:36 04:00 04:00 WBC 13.9 H RBC 3.22 L Hgb 8.7 L Hct 27.4 L MCH 27 L RDW 15.8 H Plt Count Seg Neuts % (Manual) Lymphocytes % (Manual) Nucleated RBC % Seg Neutrophils # Man Lymphocytes # (Manual) PT ABG pH POC ABG pCO2 POC ABG pO2 ABG pO2 ABG O2 Saturation ABG Base Excess ABG Hemoglobin ABG Oxyhemoglobin ABG Potassium ABG Chloride ABG Glucose Oxyhemoglobin Carboxyhemoglobin Sodium 146 H Potassium 3.5 L Chloride 107.5 H Carbon Dioxide BUN 40 H Creatinine 2.5 H Glucose 104 H POC Glucose 130 H Hemoglobin A1c Lactic Acid Calcium Phosphorus Magnesium Transferrin AST 53 H ALT Alkaline Phosphatase 149 H Total Creatine Kinase CK-MB (CK-2) Serum Total Protein Total Protein 5.2 L Albumin 1.5 L Gfdwm-1-Smxrvjtrh Jyxqy-7-Vizuesgvm Gamma Globulins PEP Interpretation HDL Cholesterol TSH Arterial Blood Glucose Arterial Blood Ionized Calcium Urine WBC (Auto) Urine Creatinine Urine Total Protein Crossmatch 05/03/21 05/04/21 05/04/21 17:26 01:24 04:48 WBC 14.3 H RBC 3.14 L Hgb 8.5 L Hct 26.3 L MCH 27 L RDW 15.8 H Plt Count Seg Neuts % (Manual) Lymphocytes % (Manual) Nucleated RBC % Seg Neutrophils # Man Lymphocytes # (Manual) PT ABG pH POC ABG pCO2 POC ABG pO2 ABG pO2 ABG O2 Saturation ABG Base Excess ABG Hemoglobin ABG Oxyhemoglobin ABG Potassium ABG Chloride ABG Glucose Oxyhemoglobin Carboxyhemoglobin Sodium Potassium Chloride Carbon Dioxide BUN Creatinine Glucose POC Glucose 123 H 146 H Hemoglobin A1c Lactic Acid Calcium Phosphorus Magnesium Transferrin AST ALT Alkaline Phosphatase Total Creatine Kinase CK-MB (CK-2) Serum Total Protein Total Protein Albumin Oifms-3-Zrkdqilxz Ahbvz-6-Kzycywlho Gamma Globulins PEP Interpretation HDL Cholesterol TSH Arterial Blood Glucose Arterial Blood Ionized Calcium Urine WBC (Auto) Urine Creatinine Urine Total Protein Crossmatch 05/04/21 05/04/21 05/04/21 04:48 05:15 11:24 WBC RBC Hgb Hct MCH RDW Plt Count Seg Neuts % (Manual) Lymphocytes % (Manual) Nucleated RBC % Seg Neutrophils # Delbert Lymphocytes # (Manual) PT ABG pH POC ABG pCO2 POC ABG pO2 ABG pO2 ABG O2 Saturation ABG Base Excess ABG Hemoglobin ABG Oxyhemoglobin ABG Potassium ABG Chloride ABG Glucose Oxyhemoglobin Carboxyhemoglobin Sodium Potassium 3.5 L Chloride Carbon Dioxide BUN 58 H Creatinine 3.4 H Glucose 168 H POC Glucose 162 H 145 H Hemoglobin A1c Lactic Acid Calcium Phosphorus 5.30 H Magnesium Transferrin AST ALT Alkaline Phosphatase Total Creatine Kinase CK-MB (CK-2) Serum Total Protein Total Protein Albumin Yvatw-8-Rnvkrpinv Ztpue-4-Tohjtxria Gamma Globulins PEP Interpretation HDL Cholesterol 24 L TSH Arterial Blood Glucose Arterial Blood Ionized Calcium Urine WBC (Auto) Urine Creatinine Urine Total Protein Crossmatch 05/04/21 05/04/21 05/05/21 16:01 23:32 04:00 WBC RBC Hgb Hct MCH RDW Plt Count Seg Neuts % (Manual) Lymphocytes % (Manual) Nucleated RBC % Seg Neutrophils # Delbert Lymphocytes # (Manual) PT ABG pH POC ABG pCO2 POC ABG pO2 ABG pO2 ABG O2 Saturation ABG Base Excess ABG Hemoglobin ABG Oxyhemoglobin ABG Potassium ABG Chloride ABG Glucose Oxyhemoglobin Carboxyhemoglobin Sodium Potassium 3.4 L Chloride Carbon Dioxide BUN 43 H Creatinine 2.7 H Glucose 124 H POC Glucose 148 H 134 H Hemoglobin A1c Lactic Acid Calcium 8.2 L Phosphorus Magnesium Transferrin AST ALT Alkaline Phosphatase Total Creatine Kinase CK-MB (CK-2) Serum Total Protein Total Protein Albumin Pfywl-6-Eojyqxxga Ubyht-4-Agjzbubtd Gamma Globulins PEP Interpretation HDL Cholesterol TSH Arterial Blood Glucose Arterial Blood Ionized Calcium Urine WBC (Auto) Urine Creatinine Urine Total Protein Crossmatch 05/05/21 05/06/21 05/06/21 05:14 00:01 04:00 WBC RBC Hgb Hct MCH RDW Plt Count Seg Neuts % (Manual) Lymphocytes % (Manual) Nucleated RBC % Seg Neutrophils # Man Lymphocytes # (Manual) PT ABG pH POC ABG pCO2 POC ABG pO2 ABG pO2 ABG O2 Saturation ABG Base Excess ABG Hemoglobin ABG Oxyhemoglobin ABG Potassium ABG Chloride ABG Glucose Oxyhemoglobin Carboxyhemoglobin Sodium Potassium 3.2 L Chloride Carbon Dioxide BUN 56 H Creatinine 3.0 H Glucose 110 H POC Glucose 120 H 120 H Hemoglobin A1c Lactic Acid Calcium 7.8 L Phosphorus 4.60 H Magnesium Transferrin AST ALT Alkaline Phosphatase Total Creatine Kinase CK-MB (CK-2) Serum Total Protein Total Protein Albumin Kuodq-0-Nadnzzzof Svbdz-4-Ayekciell Gamma Globulins PEP Interpretation HDL Cholesterol TSH Arterial Blood Glucose Arterial Blood Ionized Calcium Urine WBC (Auto) Urine Creatinine Urine Total Protein Crossmatch 05/06/21 05/06/21 05/06/21 04:27 05:15 17:37 WBC RBC 3.03 L Hgb 8.3 L Hct 25.4 L MCH 27 L RDW Plt Count Seg Neuts % (Manual) Lymphocytes % (Manual) Nucleated RBC % Seg Neutrophils # Man Lymphocytes # (Manual) PT ABG pH POC ABG pCO2 POC ABG pO2 ABG pO2 ABG O2 Saturation ABG Base Excess ABG Hemoglobin ABG Oxyhemoglobin ABG Potassium ABG Chloride ABG Glucose Oxyhemoglobin Carboxyhemoglobin Sodium Potassium Chloride Carbon Dioxide BUN Creatinine Glucose POC Glucose 137 H 132 H Hemoglobin A1c Lactic Acid Calcium Phosphorus Magnesium Transferrin AST ALT Alkaline Phosphatase Total Creatine Kinase CK-MB (CK-2) Serum Total Protein Total Protein Albumin Rmfup-1-Mznalmugi Lwesj-7-Tpnbwgfqu Gamma Globulins PEP Interpretation HDL Cholesterol TSH Arterial Blood Glucose Arterial Blood Ionized Calcium Urine WBC (Auto) Urine Creatinine Urine Total Protein Crossmatch 05/07/21 05/07/21 05/07/21 00:30 04:23 04:23 WBC RBC Hgb Hct MCH RDW Plt Count Seg Neuts % (Manual) Lymphocytes % (Manual) Nucleated RBC % Seg Neutrophils # Man Lymphocytes # (Manual) PT ABG pH POC ABG pCO2 POC ABG pO2 ABG pO2 ABG O2 Saturation ABG Base Excess ABG Hemoglobin ABG Oxyhemoglobin ABG Potassium ABG Chloride ABG Glucose Oxyhemoglobin Carboxyhemoglobin Sodium Potassium 3.4 L Chloride 107.1 H Carbon Dioxide BUN 28 H Creatinine 1.9 H Glucose 165 H POC Glucose 121 H Hemoglobin A1c Lactic Acid Calcium 8.2 L Phosphorus Magnesium 1.60 L Transferrin AST ALT Alkaline Phosphatase Total Creatine Kinase CK-MB (CK-2) Serum Total Protein Total Protein Albumin Uvlmv-0-Kwxktufyt Ueqjr-1-Ucnyxsdqi Gamma Globulins PEP Interpretation HDL Cholesterol TSH Arterial Blood Glucose Arterial Blood Ionized Calcium Urine WBC (Auto) Urine Creatinine Urine Total Protein Crossmatch 05/07/21 05/07/21 05/07/21 05:30 11:37 17:28 WBC RBC Hgb Hct MCH RDW Plt Count Seg Neuts % (Manual) Lymphocytes % (Manual) Nucleated RBC % Seg Neutrophils # Man Lymphocytes # (Manual) PT ABG pH POC ABG pCO2 POC ABG pO2 ABG pO2 ABG O2 Saturation ABG Base Excess ABG Hemoglobin ABG Oxyhemoglobin ABG Potassium ABG Chloride ABG Glucose Oxyhemoglobin Carboxyhemoglobin Sodium Potassium Chloride Carbon Dioxide BUN Creatinine Glucose POC Glucose 205 H 148 H 170 H Hemoglobin A1c Lactic Acid Calcium Phosphorus Magnesium Transferrin AST ALT Alkaline Phosphatase Total Creatine Kinase CK-MB (CK-2) Serum Total Protein Total Protein Albumin Ymgil-4-Umthomxqb Zphxx-5-Essrvgchz Gamma Globulins PEP Interpretation HDL Cholesterol TSH Arterial Blood Glucose Arterial Blood Ionized Calcium Urine WBC (Auto) Urine Creatinine Urine Total Protein Crossmatch 05/07/21 05/08/21 05/08/21 23:57 05:12 05:12 WBC 11.2 H RBC 3.01 L Hgb 8.2 L Hct 25.5 L MCH 27 L RDW 15.4 H Plt Count Seg Neuts % (Manual) Lymphocytes % (Manual) Nucleated RBC % Seg Neutrophils # Man Lymphocytes # (Manual) PT ABG pH POC ABG pCO2 POC ABG pO2 ABG pO2 ABG O2 Saturation ABG Base Excess ABG Hemoglobin ABG Oxyhemoglobin ABG Potassium ABG Chloride ABG Glucose Oxyhemoglobin Carboxyhemoglobin Sodium Potassium 3.4 L Chloride Carbon Dioxide BUN 37 H Creatinine 2.1 H Glucose 160 H POC Glucose 172 H Hemoglobin A1c Lactic Acid Calcium 8.3 L Phosphorus Magnesium Transferrin AST ALT Alkaline Phosphatase Total Creatine Kinase CK-MB (CK-2) Serum Total Protein Total Protein Albumin Ytfyc-7-Wrxwhitch Hrhqy-8-Sghmffost Gamma Globulins PEP Interpretation HDL Cholesterol TSH Arterial Blood Glucose Arterial Blood Ionized Calcium Urine WBC (Auto) Urine Creatinine Urine Total Protein Crossmatch 05/08/21 05/08/21 05/08/21 05:20 09:34 11:35 WBC RBC Hgb Hct MCH RDW Plt Count Seg Neuts % (Manual) Lymphocytes % (Manual) Nucleated RBC % Seg Neutrophils # Man Lymphocytes # (Manual) PT ABG pH POC ABG pCO2 POC ABG pO2 ABG pO2 ABG O2 Saturation ABG Base Excess ABG Hemoglobin ABG Oxyhemoglobin ABG Potassium ABG Chloride ABG Glucose Oxyhemoglobin Carboxyhemoglobin Sodium Potassium Chloride Carbon Dioxide BUN Creatinine Glucose POC Glucose 148 H 208 H Hemoglobin A1c Lactic Acid Calcium Phosphorus Magnesium Transferrin AST ALT Alkaline Phosphatase Total Creatine Kinase CK-MB (CK-2) Serum Total Protein Total Protein Albumin Hytat-7-Vghskgkcp Bcrqr-3-Quktmlkxd Gamma Globulins PEP Interpretation HDL Cholesterol TSH Arterial Blood Glucose Arterial Blood Ionized Calcium Urine WBC (Auto) Urine Creatinine 56.0 H Urine Total Protein Crossmatch 05/08/21 05/08/21 05/09/21 16:55 23:57 05:30 WBC 12.8 H RBC 2.98 L Hgb 8.1 L Hct 25.4 L MCH 27 L RDW 15.4 H Plt Count Seg Neuts % (Manual) Lymphocytes % (Manual) Nucleated RBC % Seg Neutrophils # Man Lymphocytes # (Manual) PT ABG pH POC ABG pCO2 POC ABG pO2 ABG pO2 ABG O2 Saturation ABG Base Excess ABG Hemoglobin ABG Oxyhemoglobin ABG Potassium ABG Chloride ABG Glucose Oxyhemoglobin Carboxyhemoglobin Sodium Potassium Chloride Carbon Dioxide BUN Creatinine Glucose POC Glucose 179 H 183 H Hemoglobin A1c Lactic Acid Calcium Phosphorus Magnesium Transferrin AST ALT Alkaline Phosphatase Total Creatine Kinase CK-MB (CK-2) Serum Total Protein Total Protein Albumin Ifspx-5-Wgsasaaqi Yualu-1-Keadtrqff Gamma Globulins PEP Interpretation HDL Cholesterol TSH Arterial Blood Glucose Arterial Blood Ionized Calcium Urine WBC (Auto) Urine Creatinine Urine Total Protein Crossmatch 05/09/21 05/09/21 05/09/21 05:30 05:31 11:24 WBC RBC Hgb Hct MCH RDW Plt Count Seg Neuts % (Manual) Lymphocytes % (Manual) Nucleated RBC % Seg Neutrophils # Man Lymphocytes # (Manual) PT ABG pH POC ABG pCO2 POC ABG pO2 ABG pO2 ABG O2 Saturation ABG Base Excess ABG Hemoglobin ABG Oxyhemoglobin ABG Potassium ABG Chloride ABG Glucose Oxyhemoglobin Carboxyhemoglobin Sodium 150 H Potassium 3.2 L Chloride 110.2 H Carbon Dioxide BUN 37 H Creatinine 1.8 H Glucose 191 H POC Glucose 120 H 197 H Hemoglobin A1c Lactic Acid Calcium Phosphorus Magnesium Transferrin AST ALT Alkaline Phosphatase Total Creatine Kinase CK-MB (CK-2) Serum Total Protein Total Protein Albumin Vtbqc-4-Agivxmmoe Yhzes-7-Laiqnigwc Gamma Globulins PEP Interpretation HDL Cholesterol TSH Arterial Blood Glucose Arterial Blood Ionized Calcium Urine WBC (Auto) Urine Creatinine Urine Total Protein Crossmatch 05/09/21 05/09/21 05/10/21 15:49 23:42 05:00 WBC RBC 2.99 L Hgb 8.2 L Hct 25.6 L MCH RDW 15.4 H Plt Count 456 H Seg Neuts % (Manual) Lymphocytes % (Manual) Nucleated RBC % Seg Neutrophils # Man Lymphocytes # (Manual) PT ABG pH POC ABG pCO2 POC ABG pO2 ABG pO2 ABG O2 Saturation ABG Base Excess ABG Hemoglobin ABG Oxyhemoglobin ABG Potassium ABG Chloride ABG Glucose Oxyhemoglobin Carboxyhemoglobin Sodium Potassium Chloride Carbon Dioxide BUN Creatinine Glucose POC Glucose 318 H 152 H Hemoglobin A1c Lactic Acid Calcium Phosphorus Magnesium Transferrin AST ALT Alkaline Phosphatase Total Creatine Kinase CK-MB (CK-2) Serum Total Protein Total Protein Albumin Udhnw-3-Uyinhyyrm Pccml-8-Asignmxsv Gamma Globulins PEP Interpretation HDL Cholesterol TSH Arterial Blood Glucose Arterial Blood Ionized Calcium Urine WBC (Auto) Urine Creatinine Urine Total Protein Crossmatch 05/10/21 05/10/21 05/10/21 05:00 05:30 12:08 WBC RBC Hgb Hct MCH RDW Plt Count Seg Neuts % (Manual) Lymphocytes % (Manual) Nucleated RBC % Seg Neutrophils # Man Lymphocytes # (Manual) PT ABG pH POC ABG pCO2 POC ABG pO2 ABG pO2 ABG O2 Saturation ABG Base Excess ABG Hemoglobin ABG Oxyhemoglobin ABG Potassium ABG Chloride ABG Glucose Oxyhemoglobin Carboxyhemoglobin Sodium 148 H Potassium 3.4 L Chloride 110.5 H Carbon Dioxide BUN 36 H Creatinine 1.6 H Glucose 185 H POC Glucose 168 H 193 H Hemoglobin A1c Lactic Acid Calcium Phosphorus Magnesium Transferrin AST ALT Alkaline Phosphatase Total Creatine Kinase CK-MB (CK-2) Serum Total Protein Total Protein Albumin Kxvli-0-Nsdfryhwb Fiwkw-5-Fctefopih Gamma Globulins PEP Interpretation HDL Cholesterol TSH Arterial Blood Glucose Arterial Blood Ionized Calcium Urine WBC (Auto) Urine Creatinine Urine Total Protein Crossmatch 05/10/21 05/10/21 05/11/21 18:02 23:25 05:40 WBC RBC 3.11 L Hgb 8.3 L Hct 26.6 L MCH 27 L RDW 15.7 H Plt Count 489 H Seg Neuts % (Manual) Lymphocytes % (Manual) Nucleated RBC % Seg Neutrophils # Man Lymphocytes # (Manual) PT ABG pH POC ABG pCO2 POC ABG pO2 ABG pO2 ABG O2 Saturation ABG Base Excess ABG Hemoglobin ABG Oxyhemoglobin ABG Potassium ABG Chloride ABG Glucose Oxyhemoglobin Carboxyhemoglobin Sodium Potassium Chloride Carbon Dioxide BUN Creatinine Glucose POC Glucose 205 H 171 H Hemoglobin A1c Lactic Acid Calcium Phosphorus Magnesium Transferrin AST ALT Alkaline Phosphatase Total Creatine Kinase CK-MB (CK-2) Serum Total Protein Total Protein Albumin Enffy-4-Pxffjrhhn Qxaqv-4-Cqkhbdmmg Gamma Globulins PEP Interpretation HDL Cholesterol TSH Arterial Blood Glucose Arterial Blood Ionized Calcium Urine WBC (Auto) Urine Creatinine Urine Total Protein Crossmatch 05/11/21 05/11/21 05/11/21 05:40 11:45 18:23 WBC RBC Hgb Hct MCH RDW Plt Count Seg Neuts % (Manual) Lymphocytes % (Manual) Nucleated RBC % Seg Neutrophils # Man Lymphocytes # (Manual) PT ABG pH POC ABG pCO2 POC ABG pO2 ABG pO2 ABG O2 Saturation ABG Base Excess ABG Hemoglobin ABG Oxyhemoglobin ABG Potassium ABG Chloride ABG Glucose Oxyhemoglobin Carboxyhemoglobin Sodium 149 H Potassium Chloride 112.0 H Carbon Dioxide BUN 36 H Creatinine 1.4 H Glucose 164 H POC Glucose 176 H 203 H Hemoglobin A1c Lactic Acid Calcium Phosphorus Magnesium Transferrin AST ALT Alkaline Phosphatase Total Creatine Kinase CK-MB (CK-2) Serum Total Protein Total Protein Albumin Fostv-3-Ywhnrgium Mshbs-4-Bpztpcbcu Gamma Globulins PEP Interpretation HDL Cholesterol TSH Arterial Blood Glucose Arterial Blood Ionized Calcium Urine WBC (Auto) Urine Creatinine Urine Total Protein Crossmatch 05/12/21 05/12/2105/12/22 00:30 04:10 04:10 WBC RBC 3.13 L Hgb 8.4 L Hct 26.6 L MCH 27 L RDW 15.7 H Plt Count 496 H Seg Neuts % (Manual) Lymphocytes % (Manual) Nucleated RBC % Seg Neutrophils # Man Lymphocytes # (Manual) PT ABG pH POC ABG pCO2 POC ABG pO2 ABG pO2 ABG O2 Saturation ABG Base Excess ABG Hemoglobin ABG Oxyhemoglobin ABG Potassium ABG Chloride ABG Glucose Oxyhemoglobin Carboxyhemoglobin Sodium Potassium Chloride Carbon Dioxide BUN 36 H Creatinine 1.3 H Glucose 182 H POC Glucose 161 H Hemoglobin A1c Lactic Acid Calcium 8.3 L Phosphorus Magnesium Transferrin AST ALT Alkaline Phosphatase Total Creatine Kinase CK-MB (CK-2) Serum Total Protein Total Protein Albumin Qrypn-7-Prksmbioj Uhtyc-9-Gdwotodkc Gamma Globulins PEP Interpretation HDL Cholesterol TSH Arterial Blood Glucose Arterial Blood Ionized Calcium Urine WBC (Auto) Urine Creatinine Urine Total Protein Crossmatch 05/12/21 05/12/21 05/12/21 05:24 11:50 17:45 WBC RBC Hgb Hct MCH RDW Plt Count Seg Neuts % (Manual) Lymphocytes % (Manual) Nucleated RBC % Seg Neutrophils # Man Lymphocytes # (Manual) PT ABG pH POC ABG pCO2 POC ABG pO2 ABG pO2 ABG O2 Saturation ABG Base Excess ABG Hemoglobin ABG Oxyhemoglobin ABG Potassium ABG Chloride ABG Glucose Oxyhemoglobin Carboxyhemoglobin Sodium Potassium Chloride Carbon Dioxide BUN Creatinine Glucose POC Glucose 177 H 180 H 187 H Hemoglobin A1c Lactic Acid Calcium Phosphorus Magnesium Transferrin AST ALT Alkaline Phosphatase Total Creatine Kinase CK-MB (CK-2) Serum Total Protein Total Protein Albumin Saaeg-2-Utyhnfonn Wcaic-2-Yhsujovpa Gamma Globulins PEP Interpretation HDL Cholesterol TSH Arterial Blood Glucose Arterial Blood Ionized Calcium Urine WBC (Auto) Urine Creatinine Urine Total Protein Crossmatch 05/12/21 05/13/21 05/13/21 23:20 04:24 04:24 WBC RBC 3.10 L Hgb 8.5 L Hct 26.3 L MCH RDW 15.6 H Plt Count 503 H Seg Neuts % (Manual) Lymphocytes % (Manual) Nucleated RBC % Seg Neutrophils # Man Lymphocytes # (Manual) PT ABG pH POC ABG pCO2 POC ABG pO2 ABG pO2 ABG O2 Saturation ABG Base Excess ABG Hemoglobin ABG Oxyhemoglobin ABG Potassium ABG Chloride ABG Glucose Oxyhemoglobin Carboxyhemoglobin Sodium Potassium Chloride Carbon Dioxide BUN 30 H Creatinine Glucose 138 H POC Glucose 142 H Hemoglobin A1c Lactic Acid Calcium 8.3 L Phosphorus Magnesium 1.60 L Transferrin AST ALT Alkaline Phosphatase Total Creatine Kinase CK-MB (CK-2) Serum Total Protein Total Protein Albumin Hpvse-1-Rzpfnjzvb Hobmo-4-Klrlzwntq Gamma Globulins PEP Interpretation HDL Cholesterol TSH Arterial Blood Glucose Arterial Blood Ionized Calcium Urine WBC (Auto) Urine Creatinine Urine Total Protein Crossmatch 05/13/21 05/13/21 05/13/21 05:29 11:44 16:52 WBC RBC Hgb Hct MCH RDW Plt Count Seg Neuts % (Manual) Lymphocytes % (Manual) Nucleated RBC % Seg Neutrophils # Man Lymphocytes # (Manual) PT ABG pH POC ABG pCO2 POC ABG pO2 ABG pO2 ABG O2 Saturation ABG Base Excess ABG Hemoglobin ABG Oxyhemoglobin ABG Potassium ABG Chloride ABG Glucose Oxyhemoglobin Carboxyhemoglobin Sodium Potassium Chloride Carbon Dioxide BUN Creatinine Glucose POC Glucose 128 H 148 H 160 H Hemoglobin A1c Lactic Acid Calcium Phosphorus Magnesium Transferrin AST ALT Alkaline Phosphatase Total Creatine Kinase CK-MB (CK-2) Serum Total Protein Total Protein Albumin Yjuzv-1-Bgksccfut Usbno-7-Elpuwoelh Gamma Globulins PEP Interpretation HDL Cholesterol TSH Arterial Blood Glucose Arterial Blood Ionized Calcium Urine WBC (Auto) Urine Creatinine Urine Total Protein Crossmatch 05/13/21 05/14/21 05/14/21 23:25 04:43 04:43 WBC RBC 3.02 L Hgb 8.3 L Hct 25.6 L MCH RDW 15.5 H Plt Count 482 H Seg Neuts % (Manual) Lymphocytes % (Manual) Nucleated RBC % Seg Neutrophils # Man Lymphocytes # (Manual) PT ABG pH POC ABG pCO2 POC ABG pO2 ABG pO2 ABG O2 Saturation ABG Base Excess ABG Hemoglobin ABG Oxyhemoglobin ABG Potassium ABG Chloride ABG Glucose Oxyhemoglobin Carboxyhemoglobin Sodium Potassium Chloride Carbon Dioxide BUN 29 H Creatinine Glucose 192 H POC Glucose 167 H Hemoglobin A1c Lactic Acid Calcium 8.1 L Phosphorus Magnesium Transferrin AST ALT Alkaline Phosphatase Total Creatine Kinase CK-MB (CK-2) Serum Total Protein Total Protein Albumin Bzdsy-6-Gthvsppko Yfwxk-3-Kcykoivta Gamma Globulins PEP Interpretation HDL Cholesterol TSH Arterial Blood Glucose Arterial Blood Ionized Calcium Urine WBC (Auto) Urine Creatinine Urine Total Protein Crossmatch 05/14/21 05/14/21 05/14/21 05:37 10:57 10:59 WBC RBC Hgb Hct MCH RDW Plt Count Seg Neuts % (Manual) Lymphocytes % (Manual) Nucleated RBC % Seg Neutrophils # Man Lymphocytes # (Manual) PT ABG pH POC ABG pCO2 POC ABG pO2 ABG pO2 ABG O2 Saturation ABG Base Excess ABG Hemoglobin ABG Oxyhemoglobin ABG Potassium ABG Chloride ABG Glucose Oxyhemoglobin Carboxyhemoglobin Sodium Potassium Chloride Carbon Dioxide BUN Creatinine Glucose POC Glucose 190 H 215 H Hemoglobin A1c Lactic Acid Calcium Phosphorus Magnesium Transferrin AST ALT Alkaline Phosphatase Total Creatine Kinase CK-MB (CK-2) Serum Total Protein Total Protein Albumin Wubux-6-Jfqvbkelp Vhhue-8-Tygosopgv Gamma Globulins PEP Interpretation HDL Cholesterol TSH Arterial Blood Glucose Arterial Blood Ionized Calcium Urine WBC (Auto) 8.0 H Urine Creatinine Urine Total Protein Crossmatch 05/14/21 05/14/21 05/15/21 18:06 23:41 04:09 WBC 11.5 H RBC 2.80 L Hgb 7.7 L Hct 23.6 L MCH RDW 15.3 H Plt Count Seg Neuts % (Manual) Lymphocytes % (Manual) Nucleated RBC % Seg Neutrophils # Man Lymphocytes # (Manual) PT ABG pH POC ABG pCO2 POC ABG pO2 ABG pO2 ABG O2 Saturation ABG Base Excess ABG Hemoglobin ABG Oxyhemoglobin ABG Potassium ABG Chloride ABG Glucose Oxyhemoglobin Carboxyhemoglobin Sodium Potassium Chloride Carbon Dioxide BUN Creatinine Glucose POC Glucose 166 H 189 H Hemoglobin A1c Lactic Acid Calcium Phosphorus Magnesium Transferrin AST ALT Alkaline Phosphatase Total Creatine Kinase CK-MB (CK-2) Serum Total Protein Total Protein Albumin Frktx-0-Nozjtdvni Opcnu-2-Orxbycsgi Gamma Globulins PEP Interpretation HDL Cholesterol TSH Arterial Blood Glucose Arterial Blood Ionized Calcium Urine WBC (Auto) Urine Creatinine Urine Total Protein Crossmatch 05/15/21 05/15/21 05/15/21 04:09 05:51 11:33 WBC RBC Hgb Hct MCH RDW Plt Count Seg Neuts % (Manual) Lymphocytes % (Manual) Nucleated RBC % Seg Neutrophils # Man Lymphocytes # (Manual) PT ABG pH POC ABG pCO2 POC ABG pO2 ABG pO2 ABG O2 Saturation ABG Base Excess ABG Hemoglobin ABG Oxyhemoglobin ABG Potassium ABG Chloride ABG Glucose Oxyhemoglobin Carboxyhemoglobin Sodium Potassium Chloride Carbon Dioxide BUN 22 H Creatinine Glucose 148 H POC Glucose 161 H 163 H Hemoglobin A1c Lactic Acid Calcium 8.2 L Phosphorus 2.00 L D Magnesium Transferrin AST ALT Alkaline Phosphatase Total Creatine Kinase CK-MB (CK-2) Serum Total Protein Total Protein Albumin Lcvlo-1-Ydtwiqhgc Ezqlz-0-Paedlbhfh Gamma Globulins PEP Interpretation HDL Cholesterol TSH Arterial Blood Glucose Arterial Blood Ionized Calcium Urine WBC (Auto) Urine Creatinine Urine Total Protein Crossmatch 05/15/21 05/16/21 05/16/21 23:58 04:24 04:24 WBC 13.0 H RBC 2.79 L Hgb 7.6 L Hct 23.7 L MCH 27 L RDW 15.9 H Plt Count Seg Neuts % (Manual) Lymphocytes % (Manual) Nucleated RBC % Seg Neutrophils # Man Lymphocytes # (Manual) PT ABG pH POC ABG pCO2 POC ABG pO2 ABG pO2 ABG O2 Saturation ABG Base Excess ABG Hemoglobin ABG Oxyhemoglobin ABG Potassium ABG Chloride ABG Glucose Oxyhemoglobin Carboxyhemoglobin Sodium Potassium 3.5 L Chloride 107.9 H Carbon Dioxide BUN 20 H Creatinine Glucose 157 H POC Glucose 141 H Hemoglobin A1c Lactic Acid Calcium 8.3 L Phosphorus Magnesium Transferrin AST ALT Alkaline Phosphatase Total Creatine Kinase CK-MB (CK-2) Serum Total Protein Total Protein Albumin Jvgnj-0-Hhtajdbrj Hdkrb-0-Wrhoqmujf Gamma Globulins PEP Interpretation HDL Cholesterol TSH Arterial Blood Glucose Arterial Blood Ionized Calcium Urine WBC (Auto) Urine Creatinine Urine Total Protein Crossmatch 05/16/21 05/16/21 05/16/21 05:24 11:58 18:06 WBC RBC Hgb Hct MCH RDW Plt Count Seg Neuts % (Manual) Lymphocytes % (Manual) Nucleated RBC % Seg Neutrophils # Man Lymphocytes # (Manual) PT ABG pH POC ABG pCO2 POC ABG pO2 ABG pO2 ABG O2 Saturation ABG Base Excess ABG Hemoglobin ABG Oxyhemoglobin ABG Potassium ABG Chloride ABG Glucose Oxyhemoglobin Carboxyhemoglobin Sodium Potassium Chloride Carbon Dioxide BUN Creatinine Glucose POC Glucose 157 H 137 H 134 H Hemoglobin A1c Lactic Acid Calcium Phosphorus Magnesium Transferrin AST ALT Alkaline Phosphatase Total Creatine Kinase CK-MB (CK-2) Serum Total Protein Total Protein Albumin Zbfsg-2-Vltuqlibb Subxd-5-Ihpuggaiy Gamma Globulins PEP Interpretation HDL Cholesterol TSH Arterial Blood Glucose Arterial Blood Ionized Calcium Urine WBC (Auto) Urine Creatinine Urine Total Protein Crossmatch 05/17/21 05/17/21 05/17/21 00:26 04:14 04:14 WBC 11.9 H RBC 2.91 L Hgb 7.4 L Hct 24.6 L MCH 25 L RDW 15.4 H Plt Count Seg Neuts % (Manual) Lymphocytes % (Manual) Nucleated RBC % Seg Neutrophils # Man Lymphocytes # (Manual) PT 15.4 H ABG pH POC ABG pCO2 POC ABG pO2 ABG pO2 ABG O2 Saturation ABG Base Excess ABG Hemoglobin ABG Oxyhemoglobin ABG Potassium ABG Chloride ABG Glucose Oxyhemoglobin Carboxyhemoglobin Sodium Potassium Chloride Carbon Dioxide BUN Creatinine Glucose POC Glucose 121 H Hemoglobin A1c Lactic Acid Calcium Phosphorus Magnesium Transferrin AST ALT Alkaline Phosphatase Total Creatine Kinase CK-MB (CK-2) Serum Total Protein Total Protein Albumin Kwkbx-2-Nfsiljfyp Gjpwm-3-Nugnqukpz Gamma Globulins PEP Interpretation HDL Cholesterol TSH Arterial Blood Glucose Arterial Blood Ionized Calcium Urine WBC (Auto) Urine Creatinine Urine Total Protein Crossmatch 05/17/21 05/17/21 05/17/21 04:14 05:19 13:14 WBC RBC Hgb Hct MCH RDW Plt Count Seg Neuts % (Manual) Lymphocytes % (Manual) Nucleated RBC % Seg Neutrophils # Man Lymphocytes # (Manual) PT ABG pH POC ABG pCO2 POC ABG pO2 ABG pO2 ABG O2 Saturation ABG Base Excess ABG Hemoglobin ABG Oxyhemoglobin ABG Potassium ABG Chloride ABG Glucose Oxyhemoglobin Carboxyhemoglobin Sodium Potassium Chloride 111.3 H Carbon Dioxide BUN 18 H Creatinine Glucose 129 H POC Glucose 117 H 122 H Hemoglobin A1c Lactic Acid Calcium Phosphorus Magnesium Transferrin AST ALT Alkaline Phosphatase Total Creatine Kinase CK-MB (CK-2) Serum Total Protein Total Protein Albumin Eldhb-9-Fzuayzrrd Dyjsb-7-Spqndevsl Gamma Globulins PEP Interpretation HDL Cholesterol TSH Arterial Blood Glucose Arterial Blood Ionized Calcium Urine WBC (Auto) Urine Creatinine Urine Total Protein Crossmatch 05/17/21 05/17/21 05/18/21 17:46 23:45 05:51 WBC RBC Hgb Hct MCH RDW Plt Count Seg Neuts % (Manual) Lymphocytes % (Manual) Nucleated RBC % Seg Neutrophils # Man Lymphocytes # (Manual) PT ABG pH POC ABG pCO2 POC ABG pO2 ABG pO2 ABG O2 Saturation ABG Base Excess ABG Hemoglobin ABG Oxyhemoglobin ABG Potassium ABG Chloride ABG Glucose Oxyhemoglobin Carboxyhemoglobin Sodium Potassium Chloride Carbon Dioxide BUN Creatinine Glucose POC Glucose 144 H 188 H 197 H Hemoglobin A1c Lactic Acid Calcium Phosphorus Magnesium Transferrin AST ALT Alkaline Phosphatase Total Creatine Kinase CK-MB (CK-2) Serum Total Protein Total Protein Albumin Jqfkz-4-Rqunmlekf Qfwbq-8-Kjadzglzt Gamma Globulins PEP Interpretation HDL Cholesterol TSH Arterial Blood Glucose Arterial Blood Ionized Calcium Urine WBC (Auto) Urine Creatinine Urine Total Protein Crossmatch 05/18/21 05/18/21 05/18/21 11:18 15:57 23:54 WBC RBC Hgb Hct MCH RDW Plt Count Seg Neuts % (Manual) Lymphocytes % (Manual) Nucleated RBC % Seg Neutrophils # Man Lymphocytes # (Manual) PT ABG pH POC ABG pCO2 POC ABG pO2 ABG pO2 ABG O2 Saturation ABG Base Excess ABG Hemoglobin ABG Oxyhemoglobin ABG Potassium ABG Chloride ABG Glucose Oxyhemoglobin Carboxyhemoglobin Sodium Potassium Chloride Carbon Dioxide BUN Creatinine Glucose POC Glucose 183 H 197 H 146 H Hemoglobin A1c Lactic Acid Calcium Phosphorus Magnesium Transferrin AST ALT Alkaline Phosphatase Total Creatine Kinase CK-MB (CK-2) Serum Total Protein Total Protein Albumin Yuxxt-9-Cjqcfhqme Qiqnj-7-Xyddgwbet Gamma Globulins PEP Interpretation HDL Cholesterol TSH Arterial Blood Glucose Arterial Blood Ionized Calcium Urine WBC (Auto) Urine Creatinine Urine Total Protein Crossmatch 05/19/21 05/19/21 05/19/21 05:16 07:12 07:12 WBC 12.7 H RBC 2.93 L Hgb 7.8 L Hct 24.6 L MCH 27 L RDW 15.7 H Plt Count Seg Neuts % (Manual) Lymphocytes % (Manual) Nucleated RBC % Seg Neutrophils # Man Lymphocytes # (Manual) PT 15.2 H ABG pH POC ABG pCO2 POC ABG pO2 ABG pO2 ABG O2 Saturation ABG Base Excess ABG Hemoglobin ABG Oxyhemoglobin ABG Potassium ABG Chloride ABG Glucose Oxyhemoglobin Carboxyhemoglobin Sodium Potassium Chloride Carbon Dioxide BUN Creatinine Glucose POC Glucose 164 H Hemoglobin A1c Lactic Acid Calcium Phosphorus Magnesium Transferrin AST ALT Alkaline Phosphatase Total Creatine Kinase CK-MB (CK-2) Serum Total Protein Total Protein Albumin Odlqb-2-Xylttcrjw Zixak-4-Mxxqsuzzk Gamma Globulins PEP Interpretation HDL Cholesterol TSH Arterial Blood Glucose Arterial Blood Ionized Calcium Urine WBC (Auto) Urine Creatinine Urine Total Protein Crossmatch 05/19/21 05/19/21 05/19/21 07:12 11:14 16:46 WBC RBC Hgb Hct MCH RDW Plt Count Seg Neuts % (Manual) Lymphocytes % (Manual) Nucleated RBC % Seg Neutrophils # Man Lymphocytes # (Manual) PT ABG pH POC ABG pCO2 POC ABG pO2 ABG pO2 ABG O2 Saturation ABG Base Excess ABG Hemoglobin ABG Oxyhemoglobin ABG Potassium ABG Chloride ABG Glucose Oxyhemoglobin Carboxyhemoglobin Sodium Potassium Chloride 109.1 H Carbon Dioxide BUN Creatinine Glucose 174 H POC Glucose 158 H 117 H Hemoglobin A1c Lactic Acid Calcium 8.0 L Phosphorus Magnesium Transferrin AST ALT Alkaline Phosphatase Total Creatine Kinase CK-MB (CK-2) Serum Total Protein Total Protein Albumin Tmokg-1-Lzcllzdxq Rtbmf-6-Zzkqvijdo Gamma Globulins PEP Interpretation HDL Cholesterol TSH Arterial Blood Glucose Arterial Blood Ionized Calcium Urine WBC (Auto) Urine Creatinine Urine Total Protein Crossmatch 05/19/21 05/20/21 05/20/21 23:57 04:29 05:18 WBC 14.4 H RBC 2.96 L Hgb 7.7 L Hct 24.9 L MCH 26 L RDW 15.5 H Plt Count Seg Neuts % (Manual) Lymphocytes % (Manual) Nucleated RBC % Seg Neutrophils # Man Lymphocytes # (Manual) PT ABG pH POC ABG pCO2 POC ABG pO2 ABG pO2 ABG O2 Saturation ABG Base Excess ABG Hemoglobin ABG Oxyhemoglobin ABG Potassium ABG Chloride ABG Glucose Oxyhemoglobin Carboxyhemoglobin Sodium Potassium Chloride Carbon Dioxide BUN Creatinine Glucose POC Glucose 138 H 144 H Hemoglobin A1c Lactic Acid Calcium Phosphorus Magnesium Transferrin AST ALT Alkaline Phosphatase Total Creatine Kinase CK-MB (CK-2) Serum Total Protein Total Protein Albumin Hpegp-1-Olyfxfgmf Zuxqq-6-Nezmwbzdi Gamma Globulins PEP Interpretation HDL Cholesterol TSH Arterial Blood Glucose Arterial Blood Ionized Calcium Urine WBC (Auto) Urine Creatinine Urine Total Protein Crossmatch 05/20/21 11:02 WBC RBC Hgb Hct MCH RDW Plt Count Seg Neuts % (Manual) Lymphocytes % (Manual) Nucleated RBC % Seg Neutrophils # Man Lymphocytes # (Manual) PT ABG pH POC ABG pCO2 POC ABG pO2 ABG pO2 ABG O2 Saturation ABG Base Excess ABG Hemoglobin ABG Oxyhemoglobin ABG Potassium ABG Chloride ABG Glucose Oxyhemoglobin Carboxyhemoglobin Sodium Potassium Chloride Carbon Dioxide BUN Creatinine Glucose POC Glucose 146 H Hemoglobin A1c Lactic Acid Calcium Phosphorus Magnesium Transferrin AST ALT Alkaline Phosphatase Total Creatine Kinase CK-MB (CK-2) Serum Total Protein Total Protein Albumin Bnzud-9-Djjukxuyz Stpkp-7-Npswtuyzn Gamma Globulins PEP Interpretation HDL Cholesterol TSH Arterial Blood Glucose Arterial Blood Ionized Calcium Urine WBC (Auto) Urine Creatinine Urine Total Protein Crossmatch
[2021-05-20 16:28] VITALS: BP 133/90
== END 2021-05-20 18:43 | DRG 4 ==
LOC: ED 14:30 → 4A 19:17 → CC1 21:44
PROVIDERS: ADMIT Internal Medicine; ATTEND Internal Medicine
PROC: 5A09357 Assistance with Respiratory Ventilation, Less than 24 Consecutive Hours, Continuous Positive Airway Pressure (ICD-10-PCS; 2021-04-21)
PROC: 5A09357 Assistance with Respiratory Ventilation, Less than 24 Consecutive Hours, Continuous Positive Airway Pressure (ICD-10-PCS; 2021-04-25)
PROC: 05HA33Z Insertion of Infusion Device into Left Brachial Vein, Percutaneous Approach (ICD-10-PCS; 2021-04-26)
PROC: 5A1D70Z Performance of Urinary Filtration, Intermittent, Less than 6 Hours Per Day (ICD-10-PCS; 2021-04-27)
PROC: 05HM33Z Insertion of Infusion Device into Right Internal Jugular Vein, Percutaneous Approach (ICD-10-PCS; 2021-04-27)
PROC: B543ZZA Ultrasonography of Right Jugular Veins, Guidance (ICD-10-PCS; 2021-04-27)
PROC: 5A1D70Z Performance of Urinary Filtration, Intermittent, Less than 6 Hours Per Day (ICD-10-PCS; 2021-04-28)
PROC: B34HZZZ Ultrasonography of Right Upper Extremity Arteries (ICD-10-PCS; 2021-04-29)
PROC: 009U3ZX Drainage of Spinal Canal, Percutaneous Approach, Diagnostic (ICD-10-PCS; 2021-04-29)
PROC: 03HB33Z Insertion of Infusion Device into Right Radial Artery, Percutaneous Approach (ICD-10-PCS; 2021-04-29)
PROC: 4A033R1 Measurement of Arterial Saturation, Peripheral, Percutaneous Approach (ICD-10-PCS; principal; 2021-04-30)
PROC: 5A1D70Z Performance of Urinary Filtration, Intermittent, Less than 6 Hours Per Day (ICD-10-PCS; 2021-04-30)
PROC: 5A1D70Z Performance of Urinary Filtration, Intermittent, Less than 6 Hours Per Day (ICD-10-PCS; 2021-05-01)
PROC: 5A1D70Z Performance of Urinary Filtration, Intermittent, Less than 6 Hours Per Day (ICD-10-PCS; 2021-05-02)
PROC: 30233N1 Transfusion of Nonautologous Red Blood Cells into Peripheral Vein, Percutaneous Approach (ICD-10-PCS; 2021-05-02)
PROC: 5A1D70Z Performance of Urinary Filtration, Intermittent, Less than 6 Hours Per Day (ICD-10-PCS; 2021-05-04)
PROC: 5A1D70Z Performance of Urinary Filtration, Intermittent, Less than 6 Hours Per Day (ICD-10-PCS; 2021-05-06)
PROC: B24BZZ4 Ultrasonography of Heart with Aorta, Transesophageal (ICD-10-PCS; 2021-05-06)
PROC: 5A1955Z Respiratory Ventilation, Greater than 96 Consecutive Hours (ICD-10-PCS; 2021-05-07)
PROC: 0BH17EZ Insertion of Endotracheal Airway into Trachea, Via Natural or Artificial Opening (ICD-10-PCS; 2021-05-07)
PROC: 0B113F4 Bypass Trachea to Cutaneous with Tracheostomy Device, Percutaneous Approach (ICD-10-PCS; 2021-05-13)
PROC: 0DH63UZ Insertion of Feeding Device into Stomach, Percutaneous Approach (ICD-10-PCS; 2021-05-19)
DX: A41.9 Sepsis, unspecified organism (principal); J96.01 Acute respiratory failure with hypoxia; E11.00 Type 2 diabetes mellitus with hyperosmolarity without nonketotic hyperglycemic-hyperosmolar coma (NKHHC); N17.0 Acute kidney failure with tubular necrosis; R65.21 Severe sepsis with septic shock; J18.9 Pneumonia, unspecified organism; G93.41 Metabolic encephalopathy; E87.0 Hyperosmolality and hypernatremia; M62.82 Rhabdomyolysis; E87.1 Hypo-osmolality and hyponatremia; Z20.822 Contact with and (suspected) exposure to COVID-19; E86.0 Dehydration; K21.9 Gastro-esophageal reflux disease without esophagitis; E78.5 Hyperlipidemia, unspecified; E87.6 Hypokalemia; E87.8 Other disorders of electrolyte and fluid balance, not elsewhere classified; D69.6 Thrombocytopenia, unspecified; E11.65 Type 2 diabetes mellitus with hyperglycemia
CPT/HCPCS: 36415; 36430; 36600; 49440; 62270; 62328; 70450; 70544; 70547; 70551; 71045; 74018; 74176; 76770; 80048; 80053; 80061; 80074; 80076; 80320; 81001; 82140; 82550; 82553; 82570; 82803; 82805; 82947; 82962; 83036; 83550; 83735; 83935; 84100; 84156; 84160; 84165; 84295; 84300; 84439; 84443; 84484; 85007; 85025; 85027; 85610; 85730; 86022; 86850; 86900; 86901; 86920; 87040; 87070; 87076; 87086; 87106; 87205; 89051; 93005; 93306; 93312; 93320; 93325; 93970; 94002; 94003; 94640; 94660; 94760; 99285; G0378; J2354; J3490; J7510; Q0162; Q0177; Q9967; C1751; C1769; C8929; G0480; J0360; J0690; J0692; J0696; J1450; J1644; J1720; J1815; J1940; J1956; J2060; J2185; J2250; J2270; J2370; J3010; J3370; J3475; J3480; J7030; J7040; J7050; J7070; J7120; P9016; P9047; U0003